=== PATIENT | male | born 1940 | race Caucasian/White ===

== ENCOUNTER 2022-12-18 06:57 | Outpatient (OUT) | payer MEDICARE, SELFPAY ==
[2022-12-18 07:55] LABS: Microalbumin Urine Random <1.3 mg/dL (<=30.0)
[2022-12-18 07:58] LABS: Alanine Aminotransferase 32 U/L (16-63); Anion Gap 12.1; BUN Creatinine Ratio 18.8; Calcium 8.9 mg/dL (8.5-10.1); Carbon Dioxide 29.6 mmol/L (21.0-32.0); Chloride 100 mmol/L (98-107); Chol HDL Ratio 3.3; Cholesterol 177 mg/dL (<=200); Estimated GFR (African America >60 (>=60); Estimated GFR (Non-African Ame >60 (>=60); Glucose 82 mg/dL (74-106); HDL Cholesterol 53 mg/dL (40-60); LDL Cholesterol Calculated 103.2 mg/dL; Potassium 4.7 mmol/L (3.5-5.1); Sodium 137 mmol/L (136-145); Triglycerides 104 mg/dL (<=150); VLDL CHOLESTEROL 20.8 mg/dL
[2022-12-18 08:00] LABS: Estimated Average Glucose 126 mg/dL
[2022-12-18 08:09] LABS: Basophils Absolute Auto 0.1 10^3/uL (0.0-0.1); Basophils Percent Auto 0.7 % (0.2-2.0); Eosinophils Absolute Auto 0.3 10^3/uL (0.0-0.7); Eosinophils Percent Auto 3.3 % (0.9-7.0); Hematocrit 41.3 % (42.0-54.0); Hemoglobin 13.8 g/dL (14.0-18.0); Immature Granulocytes Abs Auto 0.03 10^3/uL (0.00-0.03); Immature Granulocytes Pct Auto 0.4 % (0.0-0.5); Lymphocytes Absolute Auto 2.7 10^3/uL (1.2-3.8); Lymphocytes Percent Auto 35.9 % (20.5-60.0); Mean Corpuscular HGB Conc 33.4 g/dL (29.9-35.2); Mean Corpuscular Hemoglobin 31.7 pg (25.9-34.0); Mean Corpuscular Volume 94.9 fL (80.0-94.0); Monocytes Percent Auto 13.6 % (1.7-12.0); Neutrophils Absolute Auto 3.5 10^3/uL (1.4-6.5); Neutrophils Percent Auto 46.1 % (43.0-75.0); Platelet Count 241 10^3/uL (150-450); Red Blood Count 4.35 10^6/uL (4.70-6.10); Red Cell Distribution Width 11.4 % (11.0-15.0); White Blood Count 7.5 10^3/uL (4.0-11.0)
== END 2022-12-18 06:58 | disposition home or self-care (01) ==
LOC: LAB 07:05
PROVIDERS: PCP Internal Medicine; Visit Provider Internal Medicine
DX: E11.65 Type 2 diabetes mellitus with hyperglycemia (principal); E78.01 Familial hypercholesterolemia; I10 Essential (primary) hypertension; Z79.899 Other long term (current) drug therapy
CPT/HCPCS: 36415; 80048; 80061; 82043; 83036; 84460; 85025

== ENCOUNTER 2023-01-13 14:32 | Emergency (ER) | payer MEDICARE, SELFPAY ==
[2023-01-13 14:35] VITALS: BP 167/79; PULSE 70; RESP 18; TEMP 36.6; O2SAT 100; BMI 27.4
== END 2023-01-13 14:58 | disposition left against medical advice (07) ==
LOC: ER 14:47
PROVIDERS: Emergency Provider Emergency Medicine; PCP Internal Medicine
DX: Z53.21 Procedure and treatment not carried out due to patient leaving prior to being seen by health care provider (principal)

== ENCOUNTER 2023-02-23 09:58 | Outpatient (OUT) | payer MEDICARE, SELFPAY ==
--- NOTE | 2023-02-23 | US_ITS ---
[place] [id number] Patient Name: EMILY WASHINGTON MRN: [id number] date: 1940 Sex: M Assigned Patient Location: RAD Current Patient Location: RAD Accession/Order Number: [id number] Exam Date: 02/23/2023 10:35 Report Date: 02/23/2023 12:42 At the request of: LANE SAAVEDRA Procedure: US venous doppler LE RT EXAMINATION: US venous doppler LE RT HISTORY: right leg swelling COMPARISON: No relevant comparison available. TECHNIQUE: Grayscale, color and Doppler ultrasound FINDINGS: Region: Right leg Thrombus: None Flow: Normal Augmentation: Normal Compressibility: Normal Other: Moderate subcutaneous edema of the lower leg. Mildly enlarged lobular right groin lymph node measuring 3.5 x 1.5 x 1.2 cm US/US venous doppler LE RT IMPRESSION: No deep or superficial vein thrombus Subcutaneous edema *Exam performed in accordance with [facility] practice guidelines- Peripheral venous ultrasound, June 08, 2009. Electronically authenticated by: SAMY TORRES Date: 02/23/2023 12:42
== END 2023-02-23 09:59 | disposition home or self-care (01) ==
LOC: RAD 09:59
PROVIDERS: PCP Internal Medicine; Visit Provider Internal Medicine
DX: M79.89 Other specified soft tissue disorders (principal); R60.0 Localized edema
CPT/HCPCS: 93971

== ENCOUNTER 2023-02-26 08:57 | Outpatient (OUT) | payer MEDICARE, SELFPAY ==
--- NOTE | 2023-02-26 | XR_ITS ---
The [address] [address] Patient Name: EMILY WASHINGTON MRN: [id number] date: 1940 Sex: M Assigned Patient Location: Current Patient Location: [facility] Accession/Order Number: [id number] Exam Date: 02/26/2023 09:16 Report Date: 02/26/2023 12:22 At the request of: SABINE MUNSON Procedure: XR foot RT min 3V PROCEDURE: XR foot RT min 3V COMPARISON: None. HISTORY: RIGHT FOOT PAIN FINDINGS: BONES:No acute fracture or dislocation. Partial pes planus with plantar rotation of the navicular in relation to the tarsal bones. Moderate degenerative changes with joint space narrowing and marginal osteophyte formation. Enthesopathic spurring of the calcaneus. SOFT TISSUES:Negative. No visible soft tissue swelling. EFFUSION:None visible. OTHER: Scattered calcifications XR/XR foot RT min 3V IMPRESSION: Moderate degenerative changes with partial pes planus Electronically authenticated by: SAMY TORRES Date: 02/26/2023 12:22
== END 2023-02-26 08:58 | disposition home or self-care (01) ==
LOC: WC 08:57
PROVIDERS: PCP Internal Medicine; Visit Provider Podiatrist Foot & Ankle Surgery
DX: E11.621 Type 2 diabetes mellitus with foot ulcer (principal); L97.512 Non-pressure chronic ulcer of other part of right foot with fat layer exposed; L97.515 Non-pressure chronic ulcer of other part of right foot with muscle involvement without evidence of necrosis
CPT/HCPCS: 11043; 73630; G0463

== ENCOUNTER 2023-03-08 12:14 | Observation (INO) | payer MEDICARE, SELFPAY ==
[2023-03-08] VITALS (7 sets, daily range): BP systolic 157–184; BP diastolic 68–91; PULSE 63–75; RESP 16–20; TEMP 36.6–37; O2SAT 95–99; BMI 28.1; BMI 27.1
--- NOTE | 2023-03-08 12:41 | XR_ITS ---
The [address] [address] Patient Name: EMILY WASHINGTON MRN: [id number] date: 1940 Sex: M Assigned Patient Location: ER Current Patient Location: ED.[facility] Accession/Order Number: [id number] Exam Date: 03/08/2023 12:50 Report Date: 03/08/2023 15:14 At the request of: NATALIE SÁNCHEZ Procedure: XR foot RT min 3V PROCEDURE: XR foot RT min 3V, 03/08/2023 12:50 PM EST CLINICAL INDICATIONS: Diabetic foot infection, swelling and pain COMPARISON: 02/26/2023 TECHNIQUE: Right foot 3 views FINDINGS: Generalized osteopenia the bony structures is noted. Convincing sign of bone destruction or fracture is not evident. There is likely stable bone loss of the second distal phalanx tuft level. There is fusion of the fifth distal interphalangeal joint level. Hallux valgus deformity, lateral deviation of first phalanges noted. There is median eminence hypertrophic change. Osteoarthrosis throughout intertarsal tarsometatarsal, first metatarsophalangeal and interphalangeal joint levels is noted. Ankle osteoarthrosis seen. Os peroneum seen. Plantar calcaneal enthesopathy is noted. Calcific plantar fasciitis considered. No ankle effusion. Generalized soft tissue swelling is seen. Opaque foreign body or gas collection is not evident. XR/XR foot RT min 3V IMPRESSION: 1. Severe soft tissue swelling, no opaque foreign body or gas collection 2. Osteopenia, no plain film sign of osteomyelitis. Three-phase bone scan or MRI would be more accurate in further assessment. 3. Osteoarthrosis 4. Calcaneal enthesopathy with calcific plantar fasciitis Electronically authenticated by: RAN COMBS Date: 03/08/2023 15:14
--- NOTE | 2023-03-08 12:42 | ED.EXTPRO1 ---
HPI - Extremity Problem General Chief complaint: Extremity Problem, Nontraumatic Stated complaint: RIGHT FOOT PAIN Time Seen by Provider: 03/08/23 12:24 Source: patient Mode of arrival: walk-in Limitations: no limitations History of Present Illness HPI Narrative: 82-year-old male presents for redness and swelling to his right foot. 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 Since then his foot has become a bit more red and swollen and he was concerned so he came in here. He had some drainage. No fever or vomiting. Related Data Allergies Allergy/AdvReac Type Severity Reaction Status Date / Time ciprofloxacin [From Cipro] Allergy Severe Verified 01/13/23 14:41 Sulfa (Sulfonamide Allergy Severe Verified 01/13/23 14:41 Antibiotics) Review of Systems ROS Narrative A ten point review of systems is negative except as noted above. PFSH PFSH Social History Smoking status: Never smoker Exam Narrative Exam Narrative: Nurses note and vital signs reviewed and patient is not hypoxic. General: The patient appears well and in no apparent distress. Patient is resting comfortably on cart. Skin: Warm, dry, no pallor noted. There is no rash noted. Head: Normocephalic, atraumatic Eye: Normal conjunctiva, no drainage Ears, Nose, Mouth, and Throat: oral mucosa is moist. Nares patent. Cardiovascular: Regular Rate and Rhythm Respiratory: Patient is in no distress, no accessory muscle use, lungs are clear to auscultation, no wheezing, rales or rhonchi Back: non-tender GI: soft and nontender Musculoskeletal: the right foot is inspected. There is erythema on the dorsum of his foot surgically distally. There is open wound on the 5th toe and also on the 3rd toe. Neurological: A&O, normal speech Psychiatric: Cooperative Constitutional Vital Signs, click to edit/add: Last Vital Signs Temp 98.6 F 03/08/23 14:36 Pulse 63 03/08/23 14:36 Resp 16 03/08/23 12:25 BP 166/85 H 03/08/23 14:36 Pulse Ox 97 03/08/23 14:36 O2 Del Method Room Air 03/08/23 12:25 Course Vital Signs Vital signs: Vital Signs Temperature 97.9 F 03/08/23 12:25 Pulse Rate 72 03/08/23 12:25 Respiratory Rate 16 03/08/23 12:25 Blood Pressure 157/68 H 03/08/23 12:25 Pulse Oximetry 99 03/08/23 12:25 Oxygen Delivery Method Room Air 03/08/23 12:25 Temperature 98.6 F 03/08/23 14:36 Pulse Rate 63 03/08/23 14:36 Respiratory Rate 16 03/08/23 12:25 Blood Pressure 166/85 H 03/08/23 14:36 Pulse Oximetry 97 03/08/23 14:36 Oxygen Delivery Method Room Air 03/08/23 12:25 MDM - Extremity (Nontraumatic) MDM Narrative Medical decision making narrative: my clinical impression is that he is a diabetic foot infection. He is given IV Zosyn and Fortaz and is being admitted. Lungs are discussed with the patient. Differential Diagnosis Differential diagnosis: Likely other (cellulitis, osteomyelitis) Lab Data Attestation: I reviewed the patient's lab results. Labs: Lab Results 03/08/23 Range/Units 12:50 WBC 10.2 (4.0-11.0) 10^3/uL RBC 3.94 L (4.70-6.10) 10^6/uL Hgb 12.6 L (14.0-18.0) g/dL Hct 36.7 L (42.0-54.0) % MCV 93.1 (80.0-94.0) fL MCH 32.0 (25.9-34.0) pg MCHC 34.3 (29.9-35.2) g/dL RDW 11.0 (11.0-15.0) % Plt Count 249 (150-450) 10^3/uL MPV 9.2 L (9.5-13.5) fL Neut % (Auto) 67.9 (43.0-75.0) % Lymph % (Auto) 18.5 L (20.5-60.0) % Gillespie % (Auto) 11.3 (1.7-12.0) % Eos % (Auto) 1.7 (0.9-7.0) % Baso % (Auto) 0.2 (0.2-2.0) % Neut # (Auto) 7.0 H (1.4-6.5) 10^3/uL Lymph # (Auto) 1.9 (1.2-3.8) 10^3/uL Gillespie # (Auto) 1.2 H (0.3-0.8) 10^3/uL Eos # (Auto) 0.2 (0.0-0.7) 10^3/uL Baso # (Auto) 0.0 (0.0-0.1) 10^3/uL Abs Immat Gran (auto) 0.04 H (0.00-0.03) 10^3/uL Imm/Tot Granulo (auto) 0.4 (0.0-0.5) % ESR 44 H (<=20) mm/hr Sodium 130 L (136-145) mmol/L Potassium 4.2 (3.5-5.1) mmol/L Chloride 96 L (98-107) mmol/L Carbon Dioxide 25.6 (21.0-32.0) mmol/L Anion Gap 12.6 BUN 21.0 H (7.0-18.0) mg/dL Creatinine 1.18 (0.70-1.30) mg/dL Est GFR ( Amer) >60 (>=60) Est GFR (Non-Af Amer) 59 L (>=60) BUN/Creatinine Ratio 17.8 Glucose 170 H (74-106) mg/dL Calcium 8.8 (8.5-10.1) mg/dL C-Reactive Protein 2.92 H (<=0.50) mg/dL Imaging Data foot x-ray: My impression: no acute findings Discharge Plan Discharge Chief Complaint: Extremity Problem, Nontraumatic Clinical Impression: Diabetic infection of right foot Patient Disposition: Admitted As Inpatient Time of Disposition Decision: 15:06 Condition: Good Referrals: Campbell Naranjo DO [Primary Care Provider] - 1 week
[2023-03-08 13:02] LABS: Basophils Percent Auto 0.2 % (0.2-2.0); Eosinophils Absolute Auto 0.2 10^3/uL (0.0-0.7); Eosinophils Percent Auto 1.7 % (0.9-7.0); Hematocrit 36.7 % (42.0-54.0); Hemoglobin 12.6 g/dL (14.0-18.0); Immature Granulocytes Abs Auto 0.04 10^3/uL (0.00-0.03); Immature Granulocytes Pct Auto 0.4 % (0.0-0.5); Lymphocytes Absolute Auto 1.9 10^3/uL (1.2-3.8); Lymphocytes Percent Auto 18.5 % (20.5-60.0); Mean Corpuscular HGB Conc 34.3 g/dL (29.9-35.2); Mean Corpuscular Volume 93.1 fL (80.0-94.0); Mean Platelet Volume 9.2 fL (9.5-13.5); Monocytes Absolute Auto 1.2 10^3/uL (0.3-0.8); Monocytes Percent Auto 11.3 % (1.7-12.0); Neutrophils Percent Auto 67.9 % (43.0-75.0); Platelet Count 249 10^3/uL (150-450); Red Blood Count 3.94 10^6/uL (4.70-6.10); White Blood Count 10.2 10^3/uL (4.0-11.0)
[2023-03-08 13:10] LABS: Anion Gap 12.6; BUN Creatinine Ratio 17.8; Calcium 8.8 mg/dL (8.5-10.1); Carbon Dioxide 25.6 mmol/L (21.0-32.0); Chloride 96 mmol/L (98-107); Estimated GFR (African America >60 (>=60); Estimated GFR (Non-African Ame 59 (>=60); Glucose 170 mg/dL (74-106); Potassium 4.2 mmol/L (3.5-5.1); Sodium 130 mmol/L (136-145)
[2023-03-08 13:11] LABS: Erythrocyte Sedimentation Rate 44 mm/hr (<=20)
[2023-03-08 13:12] LABS: C Reactive Protein 2.92 mg/dL (<=0.50)
[2023-03-08] MEDS: CEFTAZIDIME 2,000 MG in 0.9 % SODIUM CHLORIDE 100 ML 200 MG IV (15:10)
[2023-03-08] MEDS: PIPERACILLIN SODIUM/TAZOBACTAM 3.375 GM in 0.9 % SODIUM CHLORIDE 50 ML IV ×2 (15:46→21:01)
--- NOTE | 2023-03-08 16:52 | MR_ITS ---
The [address] [address] Patient Name: EMILY WASHINGTON MRN: [id number] date: 1940 Sex: M Assigned Patient Location: MS Current Patient Location: MS Accession/Order Number: [id number] Exam Date: 03/08/2023 05:48 Report Date: 03/09/2023 07:14 At the request of: SHAIKH MICHELLE Procedure: MR foot RT wo con HISTORY: Right foot pain with a seeping wound of the right fifth toe. The patient is diabetic. MR foot RT wo con: 03/08/2023 5:48 AM EST COMPARISON: Radiographs right foot 03/08/2023. TECHNIQUE: Multiplanar, multisequence MRI images of the midfoot/forefoot were obtained without contrast. FINDINGS: Several images are degraded by motion artifact. The bone marrow signal intensity appears age appropriate. The Lisfranc ligament complex appears intact. A hallux valgus deformity is again seen and is associated with a bunion complex and osteoarthritis of the first MTP joint and first metatarsal-sesamoid joints. There is osteoarthritis again seen of the interphalangeal joint of the first toe. There appear to be at least moderate to severe degenerative changes of the posterior subtalar joint with subchondral cystic change and bone marrow edema within the adjacent body of the talus. There is a large os trigonum with degenerative change at its synchondrosis. There appears to be a small soft tissue ulcer along the lateral aspect of the fifth toe at the level of the PIP joint. However, no abnormal bone marrow signal intensity is identified within the fifth toe. No focal fluid signal intensity collection is seen. There is a large amount of diffuse subcutaneous edema along the dorsum of the foot. There are degenerative changes of the talonavicular joint. MR/MR foot RT wo con IMPRESSION: 1. There appears to be a small soft tissue ulcer along the lateral aspect of the fifth toe at the level of the PIP joint. However, no MRI evidence of osteomyelitis is seen. 2. There is osteoarthritis involving multiple joints as described above. 3. There is a large amount of diffuse soft tissue swelling along the dorsum of the foot which may be secondary to reactive edema or could be due to a cellulitis. 4. Please note that several images of this examination are degraded by motion artifact. Electronically authenticated by: IZA OATES Date: 03/09/2023 07:14
[2023-03-08] MEDS: LACTATED RINGER'S SOLUTION 1,000 ML 100 ML IV (17:31)
[2023-03-08] MEDS: VANCOMYCIN HCL 2,000 MG in 0.9 % SODIUM CHLORIDE 500 ML 250 MG IV (18:50)
[2023-03-08] MEDS: ATORVASTATIN CALCIUM 10 MG TABLET PO (22:45)
[2023-03-08] MEDS: GABAPENTIN 300 MG CAPSULE PO (22:45)
[2023-03-08] MEDS: ENOXAPARIN SODIUM 40 MG/0.4 ML SYRINGE SUBQ (22:45)
[2023-03-08] MEDS: LISINOPRIL 20 MG TABLET PO (22:45)
[2023-03-08 22:50] LABS: Glucometer 153 mg/dL (74-106)
[2023-03-09 04:08] VITALS: O2SAT 92
[2023-03-09] MEDS: PIPERACILLIN SODIUM/TAZOBACTAM 3.375 GM in 0.9 % SODIUM CHLORIDE 50 ML IV ×2 (04:40→12:12)
[2023-03-09] MEDS: LACTATED RINGER'S SOLUTION 1,000 ML 100 ML IV (04:42)
[2023-03-09 05:21] LABS: Basophils Absolute Auto 0.1 10^3/uL (0.0-0.1); Basophils Percent Auto 0.5 % (0.2-2.0); Eosinophils Absolute Auto 0.3 10^3/uL (0.0-0.7); Hematocrit 34.8 % (42.0-54.0); Hemoglobin 11.6 g/dL (14.0-18.0); Immature Granulocytes Abs Auto 0.04 10^3/uL (0.00-0.03); Immature Granulocytes Pct Auto 0.4 % (0.0-0.5); Lymphocytes Absolute Auto 2.2 10^3/uL (1.2-3.8); Lymphocytes Percent Auto 23.6 % (20.5-60.0); Mean Corpuscular HGB Conc 33.3 g/dL (29.9-35.2); Mean Corpuscular Hemoglobin 31.3 pg (25.9-34.0); Mean Corpuscular Volume 93.8 fL (80.0-94.0); Mean Platelet Volume 9.3 fL (9.5-13.5); Monocytes Absolute Auto 1.4 10^3/uL (0.3-0.8); Monocytes Percent Auto 15.1 % (1.7-12.0); Neutrophils Absolute Auto 5.2 10^3/uL (1.4-6.5); Neutrophils Percent Auto 57.4 % (43.0-75.0); Platelet Count 255 10^3/uL (150-450); Red Blood Count 3.71 10^6/uL (4.70-6.10); Red Cell Distribution Width 10.9 % (11.0-15.0); White Blood Count 9.1 10^3/uL (4.0-11.0)
[2023-03-09] MEDS: GABAPENTIN 300 MG CAPSULE PO ×2 (05:29→14:16)
[2023-03-09 05:34] VITALS: BP 136/77; PULSE 68; RESP 18; TEMP 36.4; O2SAT 95
[2023-03-09 05:34] LABS: Alanine Aminotransferase 20 U/L (16-63); Albumin Globulin Ratio 0.8; Albumin Level 2.7 g/dL (3.4-5.0); Alkaline Phosphatase 47 U/L (46-116); Anion Gap 10.2; Aspartate Amino Transferase 14 U/L (15-37); BUN Creatinine Ratio 15.4; Bilirubin Total 0.5 mg/dL (0.2-1.0); Calcium 8.5 mg/dL (8.5-10.1); Carbon Dioxide 26.9 mmol/L (21.0-32.0); Chloride 101 mmol/L (98-107); Estimated GFR (African America >60 (>=60); Estimated GFR (Non-African Ame 59 (>=60); Globulin 3.4 g/dL; Glucose 93 mg/dL (74-106); Potassium 4.1 mmol/L (3.5-5.1); Sodium 134 mmol/L (136-145); Total Protein 6.1 g/dL (6.4-8.2)
[2023-03-09] MEDS: TAMSULOSIN HCL 0.4 MG CAPSULE PO (08:55)
--- NOTE | 2023-03-09 10:08 | CM.NOTE ---
Important Message From Medicare discussed with pt, pt verbalizes understanding and signs paper. Original given to pt and copy placed on pt's chart.
--- NOTE | 2023-03-09 10:45 | CM.NOTE ---
Rounds made with Dr. Rios. Awaiting Podiatry consult's recommendations for further care. Currently, No plan for discharge today.
[2023-03-09 10:53] VITALS: O2SAT 98
[2023-03-09 11:19] LABS: Glucometer 147 mg/dL (74-106)
--- NOTE | 2023-03-09 11:32 | P.HP_ITS ---
H&P: HPI History of Present Illness Chief complaint: LOWER EXTREMITY PAIN R FOOT Narrative: 82 y o male with diabetic neuropathy, had been following Dr Tejada for non healing ulcer on dorsum of his 2nd toe and had outpatient debridement in office but developed sig erythema, pain, tenderness and swelling that was extending upwards to his knee for which he came to ED for further evaluation. He had finished an oral abx 2 weeks prior for diabetic foot infection. Patient was admitted for further w/u, IV abx and podiatry evaluation for possible surgical debridement vs toe amputation overnight. He was started on IV vancomycin and zosyn and reports erythema and swellign has gone down overnight and now involves his foot only. His pain is well controlled. MRI ordered to r/o OM was negative and indicated cellulitic changes. Awaiting Podiatry evaluation Review of Systems ROS Status of ROS 10 or more systems reviewed and unremark able except as noted in history and below [facility] Medical History (Updated 03/09/23 @ 11:38 by Shaikh Blanca MD) HLD (hyperlipidemia) ?E78.5 - Hyperlipidemia, unspecified (ICD-10) Neuropathy ?G62.9 - Polyneuropathy, unspecified (ICD-10) Fracture, ankle ?S82.899A - Other fracture of unspecified lower leg, initial encounter for closed fracture (ICD-10) Benign prostate hyperplasia ?N40.0 - Benign prostatic hyperplasia without lower urinary tract symptoms (ICD-10) Hypertension ?I10 - Essential (primary) hypertension (ICD-10) Diabetes ?E11.9 - Type 2 diabetes mellitus without complications (ICD-10) Surgical History H/O rotator cuff surgery ?Z98.890 - Other specified postprocedural states (ICD-10) History of toe surgery ?Z98.890 - Other specified postprocedural states (ICD-10) History of appendectomy ?Z90.49 - Acquired absence of other specified parts of digestive tract (ICD- 10) Hx of tonsillectomy ?Z90.89 - Acquired absence of other organs (ICD-10) Family History Mother Family history of cancer Father Family history of stroke Social History Within the past year, how often did you have a drink containing alcohol: never Score interpretation: A score less than 4 is consistent with normal alcohol consumption. 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[employer] Known occupational exposures/hazards: No Highest level of school completed/degree received: Bachelor's degree Are you now , , , , never or living with a partner: Little interest or pleasure in doing things: not at all Feeling down, depressed, or hopeless: not at all Feel stressed/tense/nervous/anxious/difficulty sleeping: not at all Do you think of yourself as: straight/heterosexual Gender Identity: male Meds Home Medications and Allergies Home Medications Medication Instructions Recorded Confirmed Type gabapentin 300 mg capsule 300 mg PO TID 03/08/23 03/08/23 History glipizide 2.5 mg tablet, extended 2.5 mg PO QAM 03/08/23 03/08/23 History release 24 hr lisinopril 20 mg tablet 20 mg PO .qhs 03/08/23 03/08/23 History lovastatin 40 mg tablet 40 mg PO .qhs 03/08/23 03/08/23 History tamsulosin 0.4 mg capsule 0.4 mg PO Q24H 03/08/23 03/08/23 History Allergies Allergy/AdvReac Type Severity Reaction Status Date / Time ciprofloxacin [From Cipro] Allergy Severe Verified 01/13/23 14:41 Sulfa (Sulfonamide Allergy Severe Verified 01/13/23 14:41 Antibiotics) Exam Constitutional Vital Signs, click to edit/add: Last Vital Signs Temp 97.6 F 03/09/23 05:34 Pulse 68 03/09/23 05:34 Resp 18 03/09/23 05:34 BP 136/77 03/09/23 05:34 Pulse Ox 98 03/09/23 10:53 O2 Del Method Room Air 03/09/23 10:53 Documenting provider has reviewed patient's vital signs: yes Common normals: no apparent distress and oriented x3 General appearance: cooperative HENMT Common normals: normocephalic and head/scalp atraumatic Head and scalp: normocephalic and atraumatic Eye Common normals: conjunctivae normal and no scleral icterus Conjunctiva: conjunctiva(e) normal Respiratory Common normals: normal respiratory effort and clear to auscultation bilaterally Effort & inspection: able to speak in complete sentences Auscultation: clear to auscultation bilaterally Cardio Common normals: regular rate, S1 normal heart sound and S2 normal heart sound Rate: regular rate Heart sounds: S1 normal and S2 normal GI Common normals: Normal to inspection, nondistended, normoactive bowel sounds present, soft to palpation, non-tender and no hepatosplenomegaly Palpation: soft and no hepatosplenomegaly Extremity General: other findings Other: Right foot -appears red/swollen 2-5th toes appears swollen. Ulcer on dorsum of second toe with purulent discharge, macerated and is soft/mushy. Neuro Common normals: oriented x3, moves all extremities and no focal motor deficits Psych Common normals: mental status grossly normal, denies hallucinations, denies homicidal ideation and denies suicidal ideation Results Labs Labs: Short CBC 03/08/23 03/09/23 Range/Units 12:50 04:21 WBC 10.2 9.1 (4.0-11.0) 10^3/uL Hgb 12.6 L 11.6 L (14.0-18.0) g/dL Hct 36.7 L 34.8 L (42.0-54.0) % Plt Count 249 255 (150-450) 10^3/uL BMP 03/08/23 03/09/23 12:50 04:21 Sodium 130 L 134 L Potassium 4.2 4.1 Chloride 96 L 101 Carbon Dioxide 25.6 26.9 BUN 21.0 H 18.0 Creatinine 1.18 1.17 Glucose 170 H 93 Calcium 8.8 8.5 Liver Function 03/09/23 Range/Units 04:21 Total Bilirubin 0.5 (0.2-1.0) mg/dL AST 14 L (15-37) U/L ALT 20 (16-63) U/L Alkaline Phosphatase 47 (46-116) U/L Albumin 2.7 L (3.4-5.0) g/dL Assessment and Plan Assessment and Plan (1) Diabetic infection of right foot: Assessment and Plan: MRI negative for OM. On Vancomycin and zosyn. Awaiting podiatry recs. F/u cultures. (2) Benign prostate hyperplasia: Assessment and Plan: C/w flomax Qualifiers: Lower urinary tract symptom detail: urinary frequency Lower urinary tract symptom presence: symptoms present Qualified Code(s): N40.1 - Benign prostatic hyperplasia with lower urinary tract symptoms; R35.0 - Frequency of micturition (3) Hypertension: Assessment and Plan: BP at goal. C/w lisinopril Qualifiers: Hypertension type: primary hypertension Qualified Code(s): I10 - Essential (primary) hypertension (4) Diabetes: Assessment and Plan: SSI while in patien. Qualifiers: Diabetes mellitus type: type 2 Diabetes mellitus skilled nursing insulin use: without oil heaterman use Diabetes mellitus complication status: with neurologic complications Diabetes mellitus complication detail: with polyneuropathy Qualified Code(s): E11.42 - Type 2 diabetes mellitus with diabetic polyneuropathy (5) Neuropathy: Assessment and Plan: c/w neurontin (6) HLD (hyperlipidemia): Assessment and Plan: c/w statin Qualifiers: Hyperlipidemia type: unspecified Qualified Code(s): E78.5 - Hy perlipidemia, unspecified
[2023-03-09 13:23] VITALS: BP 146/59; PULSE 68; RESP 18; TEMP 36.7; O2SAT 98
--- NOTE | 2023-03-09 13:44 | PM.PODCN1 ---
HPI - Podiatry Data of Consult Patient: known to practice within the last 3 years Consult date: 03/09/23 Requesting physician: Shaikh Blanca MD Primary care provider: Campbell Naranjo DO Consult Narrative Reason for consult: Right diabetic foot ulcers, infection. Narrative: Patient is a 82-year-old male with PMH of HLD, T2DM, peripheral neuropathy, BPH and hypertension admitted via ED for concern of infection to his right third and fifth digits. He was seen in our wound center approximately 2 weeks ago and wounds were noted to be stable, in office debridement was performed and was placed on Augmentin at the time by his PCP. Wound has been present since August 2022, patient states that he believes it began from rubbing in his shoe gear. Over the past few days he noticed increased redness to the right foot with some pain extending into his knee and prompted him to present to the ED for further evaluation. Upon time of my exam denied any other acute lower extremity complaints and denied any constitutional symptoms. cc:: CC: Shaikh Blanca MD Review of Systems ROS Status of ROS 10 or more systems reviewed and unremarkable except as noted in history and below [facility] Medical History (Updated 03/09/23 @ 11:38 by Shaikh Blanca MD) HLD (hyperlipidemia) ?E78.5 - Hyperlipidemia, unspecified (ICD-10) Neuropathy ?G62.9 - Polyneuropathy, unspecified (ICD-10) Fracture, ankle ?S82.899A - Other fracture of unspecified lower leg, initial encounter for closed fracture (ICD-10) Benign prostate hyperplasia ?N40.0 - Benign prostatic hyperplasia without lower urinary tract symptoms (ICD-10) Hypertension ?I10 - Essential (primary) hypertension (ICD-10) Diabetes ?E11.9 - Type 2 diabetes mellitus without complications (ICD-10) Surgical History H/O rotator cuff surgery ?Z98.890 - Other specified postprocedural states (ICD-10) History of toe surgery ?Z98.890 - Other specified postprocedural states (ICD-10) History of appendectomy ?Z90.49 - Acquired absence of other specified parts of digestive tract (ICD-10) Hx of tonsillectomy ?Z90.89 - Acquired absence of other organs (ICD-10) Family History Mother Family history of cancer Father Family history of stroke Social History Within the past year, how often did you have a drink containing alcohol: never Score interpretation: A score less than 4 is consistent with normal alcohol consumption. 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 CFT intact to digits. Skin temperature warm and symmetric with mild increase to the right third digit. Erythema localized to the right third digit distal to the PIPJ. No ascending lymphangitis. Neuro: Light touch and gross sensation diminished. Protective sensation diminished. Derm: Full-thickness ulceration left fifth digit lateral PIPJ, negative probe to bone. There is a fibrotic base with mild surrounding hyperkeratosis. No active drainage or signs of acute infection. Right third digit ulceration at the distal tuft with fibronecrotic base. No fluctuance crepitus or bogginess. Negative probe to bone. No purulence or active drainage. No other open lesions noted. MSK: Muscle strength 5/5 for 4 pedal groups. Active passive range of motion digits present. Semireducible mallet toe contracture of the right third digit. No palpatory tenderness upon exam. Compartment soft compressible, no pain with calf or thigh compression. Constitutional Vital Signs, click to edit/add: Last Vital Signs Temp 98.0 F 03/09/23 13:23 Pulse 68 03/09/23 13:23 Resp 18 03/09/23 13:23 BP 146/59 H 03/09/23 13:23 Pulse Ox 98 12/26/23 13:23 O2 Del Method Room Air 12/26/23 13:23 Assessment and Plan Assessment and Plan (1) Diabetic infection of right foot: (2) Benign prostate hyperplasia: Qualifiers: Lower urinary tract symptom presence: symptoms present Lower urinary tract symptom detail: urinary frequency Qualified Code(s): N40.1 - Benign prostatic hyperplasia with lower urinary tract symptoms; R35.0 - Frequency of micturition (3) Hypertension: Qualifiers: Hypertension type: primary hypertension Qualified Code(s): I10 - Essential (primary) hypertension (4) Diabetes: Qualifiers: Diabetes mellitus type: type 2 Diabetes mellitus penitentiary insulin use: without long term care social worker use Diabetes mellitus complication status: with neurologic complications Diabetes mellitus complication detail: with polyneuropathy Qualified Code(s): E11.42 - Type 2 diabetes mellitus with diabetic polyneuropathy (5) Neuropathy: (6) HLD (hyperlipidemia): Qualifiers: Hyperlipidemia type: unspecified Qualified Code(s): E78.5 - Hyperlipidemia, unspecified Plan Patient examined evaluated. All findings discussed with patient all questions answered to patient's satisfaction. Labs and imaging reviewed. No leukocytosis. ESR and CRP mildly elevated. X-ray does show some cortical erosive changes to the 3rd distal phalanx which were present upon x-rays previously obtained in our office. MRI did not show any overt concerns for osteomyelitis or abscess although The distal phalanges are difficult to evaluate due to motion artifact.. Ulcers to be dressed with Betadine paint and dry sterile dressing. Will provide a surgical shoe for offloading purposes, patient requires an extra-large which is not carried in the hospital, therefore I will have to bring 1 from the office later today. No acute surgical intervention planned for this stay. Stable to DC from podiatry's perspective with p.o. antibiotics and previously scheduled follow-up appointment March 16 9 AM with the wound center. Patient expressed understanding of the above plan. Rest per primary. Please call with any questions or concerns.
--- NOTE | 2023-03-09 15:41 | PC.NURSE ---
[employer] talked to Tena at wound clinic. Asked her if she knew anything about a surgical boot for patient from Dr Perez. She states he says that he has the boot on his desk and is planning to bring it for patient after he is done in [email or web address] office today
== END 2023-03-09 16:45 | disposition home or self-care (01) ==
LOC: ER 15:06 → MS 03-09 15:09
PROVIDERS: Admitting Provider Internal Medicine; Emergency Provider Emergency Medicine; PCP Internal Medicine; Visit Provider Internal Medicine
DX: E11.69 Type 2 diabetes mellitus with other specified complication (principal); L08.9 Local infection of the skin and subcutaneous tissue, unspecified; E78.5 Hyperlipidemia, unspecified; N40.1 Benign prostatic hyperplasia with lower urinary tract symptoms; E11.42 Type 2 diabetes mellitus with diabetic polyneuropathy; R35.0 Frequency of micturition; I10 Essential (primary) hypertension; E11.621 Type 2 diabetes mellitus with foot ulcer; L97.519 Non-pressure chronic ulcer of other part of right foot with unspecified severity; B96.20 Unspecified Escherichia coli [E. coli] as the cause of diseases classified elsewhere; B96.5 Pseudomonas (aeruginosa) (mallei) (pseudomallei) as the cause of diseases classified elsewhere; B95.2 Enterococcus as the cause of diseases classified elsewhere; B96.89 Other specified bacterial agents as the cause of diseases classified elsewhere; Z98.890 Other specified postprocedural states; Z90.49 Acquired absence of other specified parts of digestive tract; Z79.899 Other long term (current) drug therapy
CPT/HCPCS: 36415; 73630; 73718; 80048; 80053; 82948; 85025; 85652; 86140; 87040; 87070; 87150; 87186; 94761; 96361; 96365; 96366; 96367; 96368; 96372; 97165; 99285; G0378; J3370

== ENCOUNTER 2023-03-16 09:17 | Outpatient (OUT) | payer MEDICARE, SELFPAY ==
--- OUTSIDE RECORDS SUMMARY | 2023-03-16 09:26 | XMS_ITS | CCD ---
Author Name Unknown Address [address] [place] [address] Organization [facility] Care Team Providers Care Display Screen Fabricator Name Role Phone Ran Lees Jr. Primary Care Provider Unava ilable RAN LEES JR Primary Care Unavailable KEELY GUTIERREZ Attending Unavailable CAMPBELL NARANJO Primary Care Unavailable Campbell Naranjo DO Primary Care Provider DO Campbell Naranjo Primary Care Provider MD Davis Cervantes Emergency Provider DO Sam Simons Emergency Provider [phone] DO Sam Simons Attending Provider Campbell Naranjo Unavailable DR CAMPBELL NARANJO Primary Care Unavailable QUENTIN, DR SHERMAN Consulting Unavailable BALL, DR SHERMAN Admitting Unavailable BALL, DR SHERMAN Attending Unavailable BALL, DR SHEMRAN Primary Care Unavailable MELISSA, DR SAMY Nieves Consulting Unavailable LAKESHIA, CATRACHITA Admitting Unavailable LAKESHIA, CATRACHITA Attending Unavailable LAKESHIA, CATRACHITA Consulting Unavailable BALL, DR SHERMAN Admitting Unavailable BALL, DR SHERMAN Attending Unavailable BALL, DR SHERMAN Consulting Unavailable QUENTIN, DR SHERMAN Primary Care Unavailable QUENTIN, DR SHERMAN Admitting Unavailable BALL, DR SHERMAN Attending Unavailable BALL, DR SHERMAN Consulting Unavailable BALL, DR SHERMAN Primary Care Unavailable RANDALLLEIDY Unavailable BAPTISTE, DR ROBIN Duncan Admitting Unavailable BAPTISTE, DR ROBIN Duncan Attending Unavailable BAPTISTE, DR ROBIN Duncan Consulting Unavailable QUENTIN, DR SHERMAN Primary Care Unavailable QUENTIN, DR SHERMAN Admitting Unavailable BALL, DR SHERMAN Attending Unavailable BALL, DR SHERMAN Consulting Unavailable BALL, DR SHERMAN Primary Care Unavailable MELISSA, DR SAMY Nieves Consulting Unavailable QUENTIN, DR SHERMAN Admitting Unavailable BALL, DR SHERMAN Attending Unavailable BALL, DR SHERMAN Consulting Unavailable QUENTIN, DR SHERMAN Primary Care Unavailable QUENTIN, DR SHERMAN Admitting Unavailable BALL, DR SHERMAN Attending Unavailable BALL, DR SHERMAN Consulting Unavailable BALL, DR SHERMAN Primary Care Unavailable BaptisteJonoe Unavailable DO Campbell Naranjo Primary Care Provider DO Low Carter Emergency Provider [phone] Campbell Naranjo Primary Care Unavailable Low Carter Attending Unavailable Low Carter Admitting Unavailable Campbell Naranjo DO Primary Care Provider LETICIA MILIAN Attending Unavailable CAMPBELL NARANJO Primary Care Unavailable LETICIA MILIAN Referring Unavailable CAMPBELL NARANJO Primary Care Unavailable LETICIA MILIAN Attending Unavailable JENNIFER MILIANI Kin Referring Unavailable CAMPBELL NARANJO Primary Care Unavailable LETICIA MILIAN Referring Unavailable CAMPBELL NARANJO Primary Care Unavailable Allergies Allergy Classification Reported Allergen(s) Allergy Type Date of Onset Reaction(s) Facility (20 sources) Ciprofloxacin; Translations: [CIPROFLOXACIN] Drug Allergy 08-01-19 10 GI Upset, [facility] (20 sources) Sulfonamides (Antibiotic); Translations: [SULFA (SULFONAMIDE ANTIBIOTICS)] Propensity to adverse reactions 08-01-19 10 Rash, [facility] (1 source) Ciprofloxacin Drug Allergy [facility] (1 source) Sulfonamides (Antibiotic) Drug allergy (disorder) [facility] (1 source) Allergies Reconciled Propensity to adverse reactions Unknown [facility] Other (1 source) patient allergy list reviewed by nurse or physicia Propensity to adverse reactions 05-20-19 18 Comment:Done [facility] Other (1 source) Ciprofloxacin Drug Allergy 12-12-19 [facility] (1 source) Sulfonamides (Antibiotic) Drug allergy (disorder) 12-12-19 [facility] Medications Current Medications Medication Drug Class(es) Dates Sig (Normalized) Sig (Original) 8 hr acetaminophen 650 mg extended release oral tablet (15 sources) take 1 tablet by mouth every four hours as needed Acetaminophen ER 650 MG 1 tablet Orally every 4 hours as needed Active take 1 tablet by marisela th every four hours as needed Acetaminophen ER 650 MG 1 tablet Orally every 4 hours as needed Active amoxicillin 875 mg / clavulanate 125 mg oral tablet (4 sources) Penicillin-class Antibacterial Start: 02-19-2023 take 1 tablet by mouth every twelve hours Amoxicillin-Pot Clavulanate 875-125 MG 1 tablet Orally every 12 hrs Feb, Active betamethasone 0.5 mg/ml / clotrimazole 10 mg/ml topical cream (15 sources) Azole Antifungal, Corticosteroid Clotrimazole-Betamet hasone 1-0.05 % 1 application Externally three times a day Active cephalexin 500 mg oral capsule (16 sources) Cephalosporin Antibacterial Start: 01-23-2022 End: 01-23-2022 cephALEXin 500 mg cap(s) (KEFLEX) Start: 12-11-2021 End: 12-17-2021 take 500 mg by mouth every eight hours Cephalexin Discontinued 500 MG PO Q8H 21 7 December 11, 2021 12:00am December 17, 2021 5:10pm Start: 12-09-2021 End: 12-12-2021 take 1 capsule by mouth three times daily cephALEXin (KEFLEX) 500 mg capsule Take 1 capsule by mouth three times daily for 3 days. Start evening prior procedure 10 capsule 0 12/09/2021 12/12/2021 Active Start: 11-26-2021 End: 12-09-2021 take 1 capsule by mouth twice daily cephALEXin (KEFLEX) 500 mg capsule Take 1 capsule by mouth twice daily. 14 capsule 0 11/26/2021 12/09/2021 Discontinued Start: 11-12-2021 End: 11-12-2021 cephALEXin 500 mg cap(s) (KE FLEX) Comment on above: Take [address] [facility] twice daily. Take [address] [facility] three times daily for 3 days. Start evening prior procedure diclofenac 18 mg oral capsule (15 sources) Nonsteroidal Anti-inflammatory Drug take 1 capsule by mouth three times daily econazole nitrate 10 mg/ml topical cream (15 sources) Azole Antifungal glipiZIDE er 2.5 mg 24 hr extended release oral tablet (20 sources) Sulfonylurea Start: 12-11-2021 take 2.5 mg by mouth once daily Glipizide Active 2.5 MG PO Daily December 11, 2021 12:00am Start: 01-09-2010 take 2.5 mg by mouth once torsten y glipiZIDE 5 mg ORAL tablet Take 2.5 mg by mouth once daily. 0 01/09/2010 Active Start: 01-09-2010 take 1 tablet by marisela th once daily glipiZIDE 5 mg ORAL tablet Take one(1) tablet daily. 0 01/09/2010 Active take 1 tablet by marisela th every twenty-four hours glipiZIDE XL 5 MG 1 tablet Orally Once a day Active Comment on above: Take one(1) tablet d aily. Take 2.5 mg by mouth once daily. Glucosamine 1500 Complex - (15 sources) lidocaine hydrochloride 0.02 mg/mg topical gel (3 sources) Antiarrhythmic, Amide Local Anesthetic Start: 01-23-2022 End: 12-09-2021 lidocaine urojet 2 % 11 mL topical gel (XYLOCAINE, GLYDO) Start: 11-12-2021 End: 11-12-2021 lidocaine urojet 2 % 11 mL t opical gel (XYLOCAINE, GLYDO) lisinopril 20 mg oral tablet (20 sources) Angiotensin Converting Enzyme Inhibitor Start: 12-11-2021 take 10 mg by mouth once daily Lisinopril Active 10 MG PO Daily December 11, 2021 12:00am Start: 07-31-2009 lisinopril(ALEXANDRA NIVIL 10 MG TAB) Take one(1) tablet daily. 0 0 07/31/2009 Active Lisinopril 20 MG TAKE 1 TABLET DAILY Active Comment on above: Take one(1) tablet d aily. MSM 1500 MG (15 sources) nitrofurantoin, macrocrystals 50 mg oral capsule (1 source) Nitrofuran Antibacterial Start: 11-13-19 End: 11-23-19 take 1 capsule by mouth twice daily nitrofurantoin macrocrystal (MACRODANTIN) 50 mg capsule Indications: BPH with obstruction/lower urinary tract symptoms , Benign prostatic hyperplasia with urinary retention 1 capsule by ORAL/FEEDING TUBE route twice daily for 10 days. 20 capsule 0 11/12/2021 11/22/2021 Active Comment on above: 1 capsule by ORAL/FE EDING TUBE route twice daily for 10 days. tamsulosin hydrochloride 0.4 mg oral capsule (20 sources) alpha-Adrenergic Radha Start: 01-21-20 End: 01-28-20 24 take 1 capsule by mouth once daily, then take 1 capsule by mouth once daily tamsulosin (FLOMAX) 0.4 mg Take 1 capsule by mouth once daily. Take one cap. daily 90 capsule 3 02/02/2023 01/28/2024 Active Start: 12-17-2021 take 0.4 mg by mouth twice tej ly Tamsulosin Active 0.4 MG PO Twice daily December 17, 2021 12:00am Start: 12-16-2021 take 1 capsule by mo [facility] once daily, then take 1 capsule by mouth once daily tamsulosin (FLOMAX) 0.4 mg Take 1 capsule by mouth once daily. Take one cap. daily 30 capsule 5 12/16/2021 Active Comment on above: Take 1 capsule by mo [facility] once daily. Take one cap. daily trimethoprim 100 mg oral tablet (5 sources) Dihydrofolate Reductase Inhibitor Antibacterial Start: 2 End: 2 take 100 mg by mouth twice daily Trimethoprim Active 100 MG PO Twice daily December 17, 2021 12:00am Comment on above: Take 1 tablet by [facility] twice daily for 5 days. Completed/Discontinued Medications Medication Drug Class(es) Dates Sig (Normalized) Sig (Original) amLODIPine 2.5 mg oral tablet (14 sources) Dihydropyridine Calcium Channel Radha Start: 12-11-2021 amLODIPine (NORVASC) 2.5 mg tablet Amlodipine Active 5 MG PO Daily December 11, 2021 12:00am 0 12/11/2021 Active Start: 12-11-2021 take 5 mg by mouth once daily Amlodipine Active 5 MG PO Daily December 11, 2021 12:00am Comment on above: Amlodipine Active 5 MG PO Daily December 11, 2021 12:00am aspirin 81 mg oral tablet (20 sources) Platelet Aggregation Inhibitor, Nonsteroidal Anti-inflammatory Drug Start: 12-11-2021 aspirin 81 mg cap Aspirin Active 81 MG PO Daily December 11, 2021 12:00am 0 12/11/2021 Active take 1 tablet by mouth every twe nty-four hours Comment on above: Aspirin Active 81 MG PO Daily December 11, 2021 12:00am azithromycin 250 mg oral tablet (7 sources) Macrolide Antimicrobial Start: 09-22-2022 Azithromycin 250 MG as directed Orally daily for 5 days Sep, Not-Taking/PRN doxycycline hyclate 100 mg oral capsule (2 sources) Tetracycline-class Drug Start: 12-26-2021 doxycycline hyclate (VIBRAMYCIN) 100 mg capsule gabapentin 300 mg oral capsule (20 sources) Anti-epileptic Agent Start: 07-31-2009 gabapentin(NEURONTIN 300 MG CAP) Take one(1) tablet two(2) times daily. 0 0 07/31/2009 Active Gabapentin 300 M G 1 capsule bid and 2 q HS Orally tid Active Gabapentin 300 M G TAKE 1 CAPSULE 3 TIMES A DAY for 90 Active Comment on above: Take one(1) tablet t wo(2) times daily. glucosamine hydrochloride 1500 mg oral tablet (12 sources) Start: 05-25-2019 Glucosamine HCl 1,500 mg tab Take 1,500 mg by mouth. 0 05/25/2019 Active Comment on above: Take 1,500 mg by marisela th. ammonium lactate 120 mg/ml topical cream (11 sources) Start: 01-09-2010 Ammonium Lactate 12 % TOPICAL cream Use twice daily on feet 2 01/09/2010 Active Comment on above: Use twice daily on f eet lovastatin 40 mg oral tablet (20 sources) HMG-CoA Reductase Inhibitor Start: 05-25-2019 lovastatin 40 mg tablet Lovastatin Active 40 MG PO Daily December 11, 2021 12:00am 0 05/25/2019 Active Comment on above: Lovastatin Active 40 MG PO Daily December 11, 2021 12:00am simvastatin 40 mg oral tablet (20 sources) HMG-CoA Reductase Inhibitor Start: 07-31-2009 End: 12-16-2021 simvastatin(ZOCOR 40 MG TAB) Take one(1) tablet daily at bedtime. 0 0 07/31/2009 12/16/2021 Discontinued (Discontinued by Patient) Comment on above: Take one(1) tablet d aily at bedtime. Problems Active Problems Problem Classification Problem Date Documented Date Episodic/Chronic Acquired foot deformities (17 sources) Hammer toe; Translations: [Other hammer toe(s) (acquired), left foot] Chronic Acquired foot deformities (6 sources) Hammer toe; Translations: [Other hammer toe(s) (acquired), right foot] Chronic Acquired foot deformities (15 sources) Acquired cavovarus deformity of left foot; Translations: [Other acquired deformities of left foot] Episodic Acute bronchitis (2 sources) Acute bronchitis due to other specified organisms Episodic Cardiac dysrhythmias (2 sources) Ventricular premature complex; Translations: [Ventricular premature depolarization] Onset: 06-23-2016 Chronic Chronic kidney disease (2 sources) Chronic kidney disease stage 3; Translations: [Chronic kidney disease, stage 3 unspecified] Onset: 08-23-2014 Chronic Chronic ulcer of skin (12 sources) Ulcer of foot; Translations: [Non-pressure chronic ulcer of other part of unspecified foot with unspecified severity] Onset: 10-02-2009 10-02-2009 Chronic Complication of device; implant or graft (4 sources) Disorder of urethral catheter; Translations: [Breakdown (mechanical) of indwelling urethral catheter, initial encounter] 12-11-2021 Episodic Deficiency and other anemia (1 source) Anemia due to chronic blood loss; Translations: [Iron deficiency anemia secondary to blood loss (chronic)] Chronic Diabetes mellitus with complications (20 sources) Type 2 diabetes mellitus with other diabetic neurological complication; Translations: [Diabetes with neurological manifestations, type II or unspecified type, not stated as uncontrolled] Onset: [birth year]15-1959 Resolved: 09-25-2019 07-31-2009 Chronic Diabetes mellitus without complication (1 source) Type 2 diabetes mellitus without complication; Translations: [Diabetes mellitus without mention of complication, type II or unspecified type, not stated as uncontrolled] Chronic Disorders of lipid metabolism (20 sources) Pure hypercholesterolemia; Translations: [Familial hypercholesterolemia] Onset: 03-15-1959 Chronic Essential hypertension (20 sources) Hypertensive disorder; Translations: [Essential (primary) hypertension] Chronic Fluid and electrolyte disorders (1 source) Hypo-osmolality and hyponatremia; Translations: [Hyponatremia] Onset: 11-07-2021 Episodic Genitourinary symptoms and ill-defined conditions (20 sources) Retention of urine, unspecified; Translations: [Increased frequency of urination] Onset: 11-07-2021 Resolved: 08-28-2019 Episodic Hyperplasia of prostate (20 sources) Benign prostatic hypertrophy with outflow obstruction; Translations: [Benign prostatic hyperplasia with lower urinary tract symptoms] Onset: 03-23-2016 Chronic Immunizations and screening for infectious disease (1 source) Vaccination given; Translations: [Encounter for immunization] Episodic Inflammatory conditions of male genital organs (5 sources) Chronic epididymitis; Translations: [Epididymitis] Resolved: 08-28-2019 Episodic Occlusion or stenosis of precerebral arteries (3 sources) Left carotid artery stenosis; Translations: [Occlusion and stenosis of left carotid artery] Chronic Osteoarthritis (20 sources) Osteoarthritis of right knee joint; Translations: [Unilateral primary osteoarthritis, right knee] Chronic Other aftercare (4 sources) H/O: high risk medication; Translations: [Other oysterman (current) drug therapy] Episodic Other aftercare (1 source) Long-term current use of drug therapy; Translations: [Other intermediate (current) drug therapy] Episodic Other circulatory disease (1 source) Elevated blood-pressure reading, without diagnosis of hypertension; Translations: [Elevated blood pressure reading without diagnosis of hypertension] Onset: 11-26-2021 Episodic Other circulatory disease (14 sources) Carotid bruit; Translations: [Other specified symptoms and signs involving the circulatory and respiratory systems] Episodic Other circulatory disease (6 sources) Other specified symptoms and signs involving the circulatory and respiratory systems; Translations: [OTH SPEC SX SIGNS INVLV CIRC RS] Onset: 10-23-2021 Episodic Other circulatory disease (1 source) Cardiovascular symptoms; Translations: [Other specified symptoms and signs involving the circulatory and respiratory systems] Episodic Other connective tissue disease (4 sources) Pain in left foot; Translations: [PAIN IN LEFT FOOT] Onset: 06-02-2022 Episodic Other connective tissue disease (1 source) Pain in left foot; Translations: [Pain in left foot] Episodic Other connective tissue disease (1 source) Other specified soft tissue disorders Episodic Other diseases of bladder and urethra (1 source) Flaccid neurogenic bladder; Translations: [Flaccid neuropathic bladder, not elsewhere classified] Chronic Other diseases of veins and lymphatics (6 sources) Peripheral venous insufficiency; Translations: [Venous insufficiency (chronic) (peripheral)] Onset: 09-21-2016 Episodic Other injuries and conditions due to external causes (2 sources) History of fall; Translations: [Personal history of fall] Onset: 06-23-2016 Episodic Other male genital disorders (1 source) Personal history of other diseases of male genital organs; Translations: [History of BPH] Onset: 11-07-2021 Episodic Other male genital disorders (1 source) Disorder of reproductive system; Translations: [Hydrocele, unspecified] Episodic Other male genital disorders (1 source) Pain of left testicle; Translations: [Left testicular pain] Episodic Other non-traumatic joint disorders (1 source) Lower limb joint arthritis; Translations: [Osteoarthrosis, unspecified whether generalized or localized, lower leg] Onset: 10-03-2014 Chronic Other non-traumatic joint disorders (1 source) Pain in left knee Episodic Other non-traumatic joint disorders (1 source) Pain in left ankle and joints of left foot; Translations: [PAIN IN LEFT ANKLE] Onset: 06-06-2022 Episodic Other non-traumatic joint disorders (1 source) Shoulder joint pain; Translations: [Pain in right shoulder] Episodic Other nutritional; endocrine; and metabolic disorders (1 source) Obesity; Translations: [Obesity, unspecified] Chronic Other nutritional; endocrine; and metabolic disorders (1 source) Overweight Episodic Other skin disorders (5 sources) Actinic keratosis; Translations: [Actinic keratosis] Episodic Other skin disorders (1 source) Callosity; Translations: [Corns and callosities] Episodic Other skin disorders (2 sources) Corns and callosities Episodic Retinal detachments; defects; vascular occlusion; and retinopathy (1 source) Serous retinal detachment; Translations: [Serous retinal detachment, unspecified eye] Episodic Skin and subcutaneous tissue infections (3 sources) Cellulitis of toe of left foot; Translations: [Cellulitis of left toe] Resolved: 08-28-2019 Episodic Spondylosis; intervertebral disc disorders; other back problems (6 sources) Lumbosacral spondylosis without myelopathy; Translations: [Spondylosis without myelopathy or radiculopathy, lumbar region] Chronic Sprains and strains (2 sources) Low back strain; Translations: [Strain of muscle, fascia and tendon of lower back, initial encounter] Resolved: 07-15-2021 Episodic Unclassified (3 sources) CONTACT W/AND (SUSP) EXPOS COVID-19; Translations: [CONTACT W/AND (SUSP) EXPOS COVID-19] Onset: 11-23-2021 Unclassified (1 source) Long-term current use of drug therapy; Translations: [Long-term (current) use of other medications] Onset: 03-23-2016 Urinary tract infections (3 sources) Acute cystitis with hematuria; Translations: [Urinary tract infectious disease] Onset: 11-26-2021 Episodic Past or Other Problems Problem Classification Problem Date Documented Date Episodic/Chronic Acute posthemorrhagic anemia (1 source) Acute posthemorrhagic anemia; Translations: [Acute posthemorrhagic anemia] Resolved: 01-09-2020 Episodic Bacterial infection; unspecified site (1 source) Bacterial infectious disease; Translations: [Bacterial infection, unspecified, in conditions classified elsewhere and of unspecified site] Onset: 10-29-2017 Episodic Cardiac dysrhythmias (1 source) Palpitations; Translations: [Palpitations] Onset: 06-23-2016 Episodic Chronic obstructive pulmonary disease and bronchiectasis (1 source) Bronchitis; Translations: [Bronchitis, not specified as acute or chronic] Onset: 03-03-2013 Episodic Deficiency and other anemia (1 source) Anemia; Translations: [Anemia, unspecified] Resolved: 01-06-2021 Episodic Malaise and fatigue (1 source) Malaise and fatigue; Translations: [Other malaise and fatigue] Onset: 03-23-2016 Episodic Nonspecific chest pain (1 source) Chest pain; Translations: [Chest pain, unspecified] Resolved: 08-28-2019 Episodic Other aftercare (1 source) Other oysterman (current) drug therapy; Translations: [OTH PENITENTIARY CURRENT DRUG THERAPY] Onset: 10-22-2021 Episodic Other connective tissue disease (1 source) Disorder of soft tissue; Translations: [Other specified soft tissue disorders] Resolved: 08-28-2019 Episodic Other lower respiratory disease (1 source) Dyspnea; Translations: [Dyspnea, unspecified] Onset: 10-03-2014 Episodic Other male genital disorders (4 sources) Left testicular pain; Translations: [LEFT TESTICULAR PAIN] Onset: 12-25-2021 Episodic Other nutritional; endocrine; and metabolic disorders (1 source) Overweight; Translations: [Overweight] Onset: 10-20-2021 Episodic Other nutritional; endocrine; and metabolic disorders (2 sources) Body mass index 25-29 - overweight; Translations: [Body mass index (BMI) 28.0-28.9, adult] Onset: 05-01-2015 Episodic Other skin disorders (1 source) Other seborrheic keratosis; Translations: [Seborrheic keratosis] Onset: 07-27-2013 Episodic Other skin disorders (1 source) Atrophoderma; Translations: [Unspecified hypertrophic and atrophic condition of skin] Onset: 01-16-2014 Episodic Other upper respiratory infections (1 source) Acute pharyngitis; Translations: [Acute pharyngitis due to other specified organisms] Onset: 10-29-2017 Episodic Residual codes; unclassified (12 sources) Postoperative state; Translations: [Other specified postprocedural states] Onset: 12-12-2009 12-12-2009 Episodic Residual codes; unclassified (1 source) Requires influenza virus vaccination; Translations: [Need for prophylactic vaccination and inoculation, Influenza] Onset: 01-14-2018 Episodic Residual codes; unclassified (1 source) Edema; Translations: [Edema] Onset: 05-25-2014 Episodic Screening and history of mental health and substance abuse codes (1 source) History of tobacco use; Translations: [Personal history of tobacco use, presenting hazards to health] Onset: 06-23-2016 Episodic Superficial injury; contusion (1 source) Blister of foot with infection; Translations: [Foot and toe(s), blister, infected] Onset: 07-11-2014 Episodic Unclassified (1 source) CONTACT W/AND (SUSP) EXPOS COVID-19; Translations: [CONTACT W/AND (SUSP) EXPOS COVID-19] Onset: 11-19-2021 Results Test Name Value Interpretation Reference Range Facility OV 02-02-2023 CNOV Office Visit (UROLLN ) NORBERTO WASHINGTON ([id number]) 1940 M Date Time Provider Department 02/02/23 1:30 PM LETICIA MILIAN UROLLJatinder During your visit today, we recorded the following information about you: Pulse Blood pressure Weight 65/minute 146/70 102.1 kg Leticia Milian, [employer]ST[employer]ER.GENERAL OFFICE ASSOCIATE 02/02/2023 2:13 PM Signed Norberto Washington [address] [facility] [id number] HISTORY OF PRESENT ILLNESS: Seen 07/28/22 for BPH w obs/luts, UTI Denies gross hematutia Denies burning with urination C/O some urinary leakage during something staining during the day were padding and change once, pt stated that wear pads at night. Pt stated that is doing well with urination on flomax Enlarged L testicle. ROSAMARIA 11/10/21 - 10 gm, rubbery, no nodules AUA=13 QOL 2 PVR=52 ML cysto 11-12-21 = 2.5 cm NON OBSTRUCTIVE well resected prostate, Multiple small diverticulae UROFLOWMETRY November 12, 2021 Voided vol: 149.5 ml. Q max: 14.2 ml/sec. Q av.1 ml/sec. PVR: 346 - 200 = 146 ml. UDS 12-09-21 UROFLOWMETRY= Voided vol: 270.3 ml. Q max: 42.6 ml/sec. Q av.1 ml/sec. PVR: 15.0 ml. PRESSURE-FLOW VOIDING STUDY Voided: 306.0 ml voluntary P det Q max (Max Flow): 31.6 cm H2O Maximum Flow Rate: 16.5 ml/sec Average Flow Rate: 4.3 ml/sec PVR: 50 cc US Scrotum 01/01/22 - Bilateral epididymitis, small L hydrocele, chronic R epidymidis -Took Vibramycin for bladder infection Coming for BPH w obs/luts, UTI (new finding today 02/02/23) Denies gross hematuria Denies any wt lost or pelvic pain Pt stated that notice occassionally sensation daily Pt wear a padding underwear and change daily rto Drink about 3 glasses of water PVR=83 ML Culture 01/19/23=neg Location: BPH w obs/luts, UTI Pain Character: none Severity Scale: see AUA score, see lab Duration: BPH w obs/luts, UTI [employer] SYMPTOMS SCORE. 1. INCOMPLETE EMPTYING 0 2. FREQUENCY 1 3. INTERMITTENCY 2 4. URGENCY 2 5. WEAK STREAM 3 6. STRAINING 2 7. NOCTURIA 2 TOTAL SCORE 12 QOL 2 No past medical history on file. No past surgical history on file. No family history on file. Social History Tobacco Use Smoking status: Former Packs/day: 1.50 Years: 14.00 Additional pack years: 0.00 Total pack years: 21.00 Types: Cigarettes Quit date: 03/15/1971 Years since quittin.9 Smokeless tobacco: Never Substance Use Topics Alcohol use: Yes Comment: social MEDICATIONS: Current Outpatient Medications Medication Sig tamsulosin (FLOMAX) 0.4 mg Take 1 capsule by mouth once daily. Take one cap. daily aspirin 81 mg cap Aspirin Active 81 MG PO Daily December 11, 2021 12:00am lovastatin 40 mg tablet Lovastatin Active 40 MG PO Daily December 11, 2021 12:00am Glucosamine HCl 1,500 mg tab Take 1,500 mg by mouth. glipiZIDE 5 mg ORAL tablet Take 2.5 mg by mouth once daily. gabapentin(NEURONTIN 300 MG CAP) Take one(1) tablet two(2) times daily. lisinopril(PRINIVIL 10 MG TAB) Take one(1) tablet daily. doxycycline hyclate (VIBRAMYCIN) 100 mg capsule (Patient not taking: Reported on 01/20/2022) amLODIPine (NORVASC) 2.5 mg tablet Amlodipine Active 5 MG PO Daily December 11, 2021 12:00am (Patient not taking: Reported on 02/02/2023) TRUE METRIX GLUCOSE TEST STRIP test strip TEST HOME BLOOD SUGAR ONCE A DAY TRUEPLUS LANCETS 33 gauge USE TO TEST HOME BLOOD SUGAR ONCE A DAY No current facility-administered medications for this visit. ALLERGY: ALLERGIES Allergen Reactions Cipro [Ciprofloxaci* GI Upset Sulfa (Sulfonamide * Rash REVIEW OF SYSTEMS GENERAL: No fever, no fatigue and no weight loss. HEAD AND NECK: No headache, no blurred vision and no hearing loss. CARDIOVASCULAR: No chest pain, no palpitations and no leg edema. RESPIRATORY: No cough, wheezing and no shortness of breath. : As indicated in HPI. GI: No epigastric discomfort, no blood in stool and no changes in bowel habits. MUSCLOSKELETAL: No neck pain, no back anin and no joint pain. SKIN: No varicose veins, no rash and no abnormal itching. NEUROLOGICAL: No numbness, no seizures and no tremor. BLOOD: No ekimosis, no hematomas or no bleeding from the gums. PHYSICAL EXAM: VITALS: BP 146/70 Pulse 65 Wt 102.1 kg (225 lb) BMI 28.12 kg/m? GENERAL: Alert, oriented and in no distress. HEAD: Conjuctiva: no palor Sclera: no jaundice NECK: No enlarged thyroid, no palpable lymph nodes, and no engorged neck veins. CHEST: Bilateral symetrical, resp easy non labored ABDOMEN: Soft, non tender with no masses or organomegaly. No CVA tenderness. EXTREMITIES: No leg edema, No joint swelling GENITALIA: Deferred IMPRESSION: (Diagnostic Possibilities): -L epididymitis (resolved) -Weak Urinary Stream (imp (more content not included)... Normal [facility] Bacteria Ur Culton 3 Bacteria identified Cx Nom (U) CULTURE, URINE: No growth (<1,000 CFU/ml) Normal [facility] Comment on above: Performed By: #### 6 30-4 #### [facility] CLIA [id number] [address] [place] [address] OF [facility] CNOVon 07-28-2022 CNOV Office Visit (UROLLN ) NORBERTO WASHINGTON ([id number]) 1940 M Date Time Provider Department 07/28/22 1:30 PM LETICIA MILIAN During your visit today, we recorded the following information about you: Pulse Blood pressure Weight 68/minute 142/55 100.7 kg Leticia Milian APRN.GENERAL OFFICE ASSOCIATE 07/30/2022 4:34 PM Addendum Norberto Washington [address] [facility] [address] HISTORY OF PRESENT ILLNESS: Seen 01/20/22 for BPH w obs/luts Denies gross hematutia Denies burning with urination Epidymidis resolve B/L pt is doing well will cont with present regiment PVR=52 ML Enlarged L testicle. ROSAMARIA 11/10/21 - 10 gm, rubbery, no nodules May need UDS based on cysto PVR 01/08/22 - 82 cc AUA= 13 QOL 5 cysto 11-12-21 = 2.5 cm NON OBSTRUCTIVE well resected prostate, Multiple small diverticulae UROFLOWMETRY November 12, 2021 Voided vol: 149.5 ml. Q max: 14.2 ml/sec. Q av.1 ml/sec. PVR: 346 - 200 = 146 ml. UDS 12-09-21 UROFLOWMETRY= Voided vol: 270.3 ml. Q max: 42.6 ml/sec. Q av.1 ml/sec. PVR: 15.0 ml. PRESSURE-FLOW VOIDING STUDY Voided: 306.0 ml voluntary P det Q max (Max Flow): 31.6 cm H2O Maximum Flow Rate: 16.5 ml/sec Average Flow Rate: 4.3 ml/sec PVR: 50 cc US Scrotum 01/01/22 - Bilateral epididymitis, small L hydrocele, chronic R epidymidis -Took Vibramycin for bladder infection Coming for BPH w obs/luts, UTI (new finding today 07/28/22) Denies gross hematutia Denies burning with urination C/O some urinary leakage during something staining during the day were padding and change once, pt stated that wear pads at night. Pt stated that is doing well with urination on flomax Culture 07/20/22=neg UA 07/20/22=leuk esterase 250, wbc 11-25 [facility] SYMPTOMS SCORE. 1. INCOMPLETE EMPTYING 1 2. FREQUENCY 1 3. INTERMITTENCY 4 4. URGENCY 1 5. WEAK STREAM 2 6. STRAINING 2 7. NOCTURIA 2 TOTAL SCORE 13 QOL 2 Location: BPH w obs/luts, UTI Pain Character: none Severity Scale: see AUA score, see lab Duration: BPH w obs/luts, UTI No past medical history on file. No past surgical history on file. No family history on file. Social History Tobacco Use Smoking status: Former Packs/day: 1.50 Years: 14.00 Pack years: 21.00 Types: Cigarettes Quit date: 03/15/1971 Years since quittin.4 Smokeless tobacco: Never Substance Use Topics Alcohol use: Yes Comment: social MEDICATIONS: Current Outpatient Medications Medication Sig tamsulosin (FLOMAX) 0.4 mg Take 1 capsule by mouth once daily. Take one cap. daily amLODIPine (NORVASC) 2.5 mg tablet Amlodipine Active 5 MG PO Daily December 11, 2021 12:00am aspirin 81 mg cap Aspirin Active 81 MG PO Daily December 11, 2021 12:00am lovastatin 40 mg tablet Lovastatin Active 40 MG PO Daily December 11, 2021 12:00am Glucosamine HCl 1,500 mg tab Take 1,500 mg by mouth. glipiZIDE 5 mg ORAL tablet Take 2.5 mg by mouth once daily. gabapentin(NEURONTIN 300 MG CAP) Take one(1) tablet two(2) times daily. lisinopril(PRINIVIL 10 MG TAB) Take one(1) tablet daily. doxycycline hyclate (VIBRAMYCIN) 100 mg capsule (Patient not taking: Reported on 01/20/2022) TRUE METRIX GLUCOSE TEST STRIP test strip TEST HOME BLOOD SUGAR ONCE A DAY TRUEPLUS LANCETS 33 gauge USE TO TEST HOME BLOOD SUGAR ONCE A DAY No current facility-administered medications for this visit. ALLERGY: ALLERGIES Allergen Reactions Cipro [Ciprofloxaci* GI Upset Sulfa (Sulfonamide * Rash REVIEW OF SYSTEMS GENERAL: No fever, no fatigue and no weight loss. HEAD AND NECK: No headache, no blurred vision and no hearing loss. CARDIOVASCULAR: No chest pain, no palpitations and no leg edema. RESPIRATORY: No cough, wheezing and no shortness of breath. : As indicated in HPI. GI: No epigastric discomfort, no blood in stool and no changes in bowel habits. MUSCLOSKELETAL: No neck pain, no back anin and no joint pain. SKIN: No varicose veins, no rash and no abnormal itching. NEUROLOGICAL: No numbness, no seizures and no tremor. BLOOD: No ekimosis, no hematomas or no bleeding from the gums. PHYSICAL EXAM: VITALS: BP 142/55 Pulse 68 Wt 100.7 kg (222 lb) BMI 27.75 kg/m? GENERAL: Alert, oriented and in no distress. HEAD: Conjuctiva: no palor Sclera: no jaundice NECK: No enlarged thyroid, no palpable lymph nodes, and no engorged neck veins. CHEST: Bilateral symetrical, resp easy non labored ABDOMEN: Soft, non tender with no masses or organomegaly. No CVA tenderness. EXTREMITIES: No leg edema, No joint swelling GENITALIA: Deferred IMPRESSION: (Diagnostic Possibilities): -L epididymitis (resolved) -Weak Urinary Stream (improved with flomax) -BPH without obstruction on flomax -LIOR -DM UTI (more content not included)... Normal [facility] Bacteria Ur Culton 3 Bacteria identified Cx Nom (U) CULTURE, URINE: No growth (<1,000 CFU/ml) Normal [facility] Comment on above: Performed By: #### 6 30-4 #### [facility] CLIA [id number] [address] [place] [address] [place] Urinalysis complete panel (U )on 07-20-2022 Bilirubin Ql (U) Negative Normal Negative [facility] Comment on above: Order Comment: Speci men Type: URINE SPECIMEN Ordering Facility: [facility] Address: [address] [place] [address] Performed By: #### 2 4356-8 #### [facility] CLIA [id number] [address] [place] Clarity (Unsp spec) Clear Normal Clear [facility] Comment on above: Order Comment: Speci men Type: URINE SPECIMEN Ordering Facility: [facility] Address: [address] [place] [address] Performed By: #### 2 4356-8 #### [facility] CLIA [id number] [address] [place] [id number] [place] Color (U) Yellow Normal Yellow [facility] Comment on above: Order Comment: Speci men Type: URINE SPECIMEN Ordering Facility: [facility] Address: [address] Performed By: #### 2 4356-8 #### [facility] CLIA [id number] [address] [place] [address] [place] Epithelial cells LM.HPF (Urine sed) [#/Area] Few Normal [facility] Comment on above: Order Comment: Speci men Type: URINE SPECIMEN Ordering Facility: [facility] Address: [address] Performed By: #### 2 4356-8 #### [facility] CLIA [id number] [address] [place] [address] [place] Glucose Test strip (U) [Mass/Vol] Negative Normal Trace, Negative [facility] Comment on above: Order Comment: Speci men Type: URINE SPECIMEN Ordering Facility: [facility] Address: [address] Performed By: #### 2 4356-8 #### [facility] CLIA [id number] [address] [place] [address] [place] Hemoglobin Ql (U) Negative Normal Negative, Trace [facility] Comment on above: Order Comment: Speci men Type: URINE SPECIMEN Ordering Facility: [facility] Address: [address] Performed By: #### 2 4356-8 #### [facility] CLIA [id number] [address] [place] [address] [place] Ketones Ql (U) Negative Normal Trace, Negative [facility] Comment on above: Order Comment: Speci men Type: URINE SPECIMEN Ordering Facility: [facility] Address: [address] Performed By: #### 2 4356-8 #### [facility] CLIA [id number] [address] [place] [address] [place] Leukocyte esterase Test strip Ql (U) 250 Ayaz/uL Abnormal Negative, 25 Ayaz/uL [facility] Comment on above: Order Comment: Speci men Type: URINE SPECIMEN Ordering Facility: [facility] Address: [address] [place] [address] Performed By: #### 2 4356-8 #### [facility] CLIA [id number] [address] [place] [address] [place] Nitrite Ql (U) Negative Normal Negative [facility] Comment on above: Order Comment: Speci men Type: URINE SPECIMEN Ordering Facility: [facility] Address: [address] [place] [address] Performed By: #### 2 4356-8 #### [facility] CLIA [id number] [address] [place] [address] [place] pH (U) 5.5 [pH] Normal 5.0-8.0 [facility] Comment on above: Order Comment: Speci men Type: URINE SPECIMEN Ordering Facility: [facility] Address: [address] [place] [address] Performed By: #### 2 4356-8 #### [facility] CLIA [id number] [address] [place] [address] [place] Protein (U) [Mass/Vol] Negative Normal Trace , Negative [facility] Comment on above: Order Comment: Speci men Type: URINE SPECIMEN Ordering Facility: [facility] Address: [address] [place] [address] Performed By: #### 2 4356-8 #### [facility] CLIA [id number] [address] [place] [address] [place] RBC LM.HPF (Urine sed) [#/Area] 0-3 /HPF Normal 0-3 /HPF [facility] Comment on above: Order Comment: Speci men Type: URINE SPECIMEN Ordering Facility: [facility] Address: [address] [address] Performed By: #### 2 4356-8 #### [facility] CLIA [id number] [address] [place] [address] [place] Specific gravity (U) [Rel density] 1.016 Normal 1.005-1.030 [facility] Comment on above: Order Comment: Speci men Type: URINE SPECIMEN Ordering Facility: [facility] Address: [address] [address] Performed By: #### 2 4356-8 #### [facility] CLIA [id number] [address] [place] [address] [place] Urobilinogen Ql (U) Negative Normal Negative [facility] Comment on above: Order Comment: Speci men Type: URINE SPECIMEN Ordering Facility: [facility] Address: [address] [address] Performed By: #### 2 4356-8 #### [facility] CLIA [id number] [address] [place] [address] [place] WBC LM.HPF (Urine sed) [#/Area] 11-25 /HPF Abnormal 0-5 /HPF [facility] Comment on above: Order Comment: Speci men Type: URINE SPECIMEN Ordering Facility: [facility] Address: [address] [place] [address] Performed By: #### 2 4356-8 #### [facility] CLIA [id number] [address] [place] [address] [place] GLYCOHEMOGLOBIN A1Con 2022 ADA RECOMMENDATION SEE BELOW Normal [facility] Comment on above: Result Comment: ADA RECOMMENDED LIMIT 4.0 - 6.0 ADA THERAPEUTIC TARGET < 7.0 ACTION SUGGESTED > 7.0 Performed By: #### A 1C #### [facility] [address] [place] [address] Dr. Juan Pablo Kaminski Glucose [Mass/Vol] 128 mg/dL Normal [facility] Comment on above: Performed By: #### A 1C #### [facility] [address] [place] [address] Dr. Juan Pablo Kaminski HbA1c (Bld) [Mass fraction] 6.1 % Normal 4.5-6.2 [facility] Comment on above: Performed By: #### A 1C #### [facility] [address] [place] [address] Dr. Juan Pablo Kaminski A1C with Estimated Average G luon 03-20-2022 A1C with Estimated Average Glu 128 [facility] [employer] Other A1C with Estimated Average Glu [facility] [employer] Other HbA1c (Bld) [Mass fraction] 6.1 % Normal 4.5-6.2 [facility] [employer] Other Comment on above: Performed By: #### A 1C #### [facility] [address] [place] [address] Dr. Juan Pablo Kaminski GLYCOHEMOGLOBIN A1Con 2022 ADA RECOMMENDATION SEE BELOW Normal [facility] Comment on above: Result Comment: ADA RECOMMENDED LIMIT 4.0 - 6.0 ADA THERAPEUTIC TARGET < 7.0 ACTION SUGGESTED > 7.0 Performed By: #### A 1C #### [facility] [address] [place] [address] Dr. Juan Pablo Kaminski Glucose [Mass/Vol] 128 mg/dL Normal [facility] Comment on above: Performed By: #### A 1C #### [facility] [address] [place] [address] Dr. Juan Pablo Kaminski US SCROTUM W VASCULAR ORGANo n 12-25-2021 US SCROTUM W VASCULAR ORGAN INDICATION: Pain in testicle EXAMINATION: Ultrasound US SCROTUM W VASCULAR ORGAN TECHNIQUE: Realtime ultrasound of the testicles was performed with grayscale, Color Doppler and spectral Doppler analysis. COMPARISON: A CT scan of the abdomen and pelvis dated 05/20/2019 __ FINDINGS: RIGHT: The right testicle measures approximately 2.6 x 1.8 x 1.4 cm. It is normal in size and echotexture, without focal lesion. DOPPLER: Normal arterial flow is present in the testicle with monophasic waveforms. EPIDIDYMIS: The right epididymis is moderately thickened. HYDROCELE: A moderate sized simple appearing hydrocele is observed. VARICOCELE: None. LEFT: The left testicle measures approximately 2.8 x 2.0 x 2.0 cm. It is normal in size and echotexture, without focal lesion. DOPPLER: Normal arterial flow is present in the testicle with monophasic waveforms. There is increased flow within the left epididymis on color Doppler imaging. EPIDIDYMIS: There is marked thickening of the left epididymis. HYDROCELE: A small simple appearing hydrocele is observed. VARICOCELE: None. IMPRESSION: 1. Moderate thickening of the right epididymis, raising the question of chronic epididymitis. This is associated with a moderate size simple appearing right scrotal hydrocele. 2. Marked thickening of the left epididymis, associated with hyperemia. This pattern is frequently the consequence of epididymitis. Consider urology consultation. 3. Small simple appearing left scrotal hydrocele. 4. Normal arterial flow to both testicles, arguing against testicular torsion. Electronically authenticated by: LEIDY PEREIRA Date: 2021-12-25 18:32 Normal [facility] Urine culture routineOrdered By: Sam Simons on 12-19-2021 Bacteria identified Cx Nom (U) Pseudomonas aeruginosa [facility] Automated erythrocytes count in urine sediment (number/area)Ordered By: Sam Simons on 12-17-2021 RBC Auto (Urine sed) [#/Area] 1-2 [HPF] 0-4 [facility] Automated leukocytes count i n urine sediment (number/area)Ordered By: Sam Simons on 12-17-2021 WBC Auto (Urine sed) [#/Area] 20-49 [HPF] 0-4 [facility] Bilirubin Test strip Ql (U)O rdered By: Sam Simons on 12-17-2021 Bilirubin Ql (U) Negative Negative [facility] Color Auto (U)Ordered By: Micheal Simons on 10-05-2022 Color (U) Yellow Yellow [facility] Ketones Auto test strip (U) [Mass/Vol]Ordered By: Sam Simons on 12-17-2021 Ketones (U) [Mass/Vol] Negative Negative [facility] - UrinalysisOrder ed By: Sam Simons on 12-17-2021 Hyaline casts LM Ql (Urine sed) 0-8 [LPF] 0-8 [facility] Nitrite Test strip Ql (U)Ord ered By: Sam Simons on 12-17-2021 Nitrite Ql (U) Negative Negative [facility] Protein Auto test strip (U) [Mass/Vol]Ordered By: Sam Simons on 12-17-2021 Protein (U) [Mass/Vol] Negative Negative [facility] Specific gravity Auto test s trip (U) [Rel density]Ordered By: Sam Simons on 12-17-2021 Specific gravity (U) [Rel density] 1.016 1.001-1.030 [facility] Squamous epithelial cells de tection in urine sediment by light microscopyOrdered By: Sam Simons on 12-17-2021 Epithelial cells.squamous LM Ql (Urine sed) 0-1 [HPF] 0-2 [facility] Urine bacteria detection by automated methodOrdered By: Sam Simons on 12-17-2021 Bacteria Auto Ql (U) None seen None Seen [facility] Urine clarity by refractomet ry automatedOrdered By: Sam Simons on 12-17-2021 Clarity Refractometry automated (U) Clear Clear [facility] Urine glucose measurement by automated test strip (mass/volume)Ordered By: Sam Simons on 12-17-2021 Glucose Auto test strip (U) [Mass/Vol] Normal mg/dL Normal [facility] Urine hemoglobin detection b y automated test stripOrdered By: Sam Simons on 12-17-2021 Hemoglobin Auto test strip Ql (U) Negative Negative [facility] Urine leukocyte esterase det ection by automated test stripOrdered By: Sam Simons on 12-17-2021 Leukocyte esterase Auto test strip Ql (U) 4+ Negative [facility] Urobilinogen Auto test strip (U) [Mass/Vol]Ordered By: Sam Simons on 12-17-2021 Urobilinogen (U) [Mass/Vol] Normal mg/dL Normal [facility] pH Auto test strip (U)Ordere d By: Sam Simons on 12-17-2021 pH (U) 6.0 [pH] 5.0-9.0 [facility] Urine culture routineOrdered By: Davis Cervantes on 12-13-2021 Bacteria identified Cx Nom (U) No Growth 2 Days [facility] Automated erythrocytes count in urine sediment (number/area)Ordered By: Davis Cervantes on 12-11-2021 RBC Auto (Urine sed) [#/Area] 20-49 [HPF] 0-4 [facility] Automated leukocytes count i n urine sediment (number/area)Ordered By: Davis Cervantes on 12-11-2021 WBC Auto (Urine sed) [#/Area] 10-19 [HPF] 0-4 [facility] Basophils Auto (Bld) [#/Vol] Ordered By: Davis Cervantes on 12-11-2021 Basophils (Bld) [#/Vol] 0.1 10*3/uL 0.0-0.2 [facility] Basophils/100 WBC Auto (Bld) Ordered By: Davis Cervantes on 12-11-2021 Basophils/100 WBC (Bld) 1.2 % . [facility] Bilirubin Test strip Ql (U)O rdered By: Davis Cervantes on 12-11-2021 Bilirubin Ql (U) Negative Negative [facility] Blood hemoglobin measurement (mass/volume)Ordered By: Davis Cervantes on 12-11-2021 Hemoglobin (Bld) [Mass/Vol] 13.3 g/dL 13.0-17.0 [facility] Blood leukocytes automated c ount (number/volume)Ordered By: Davis Cervantes on 12-11-2021 WBC (Bld) [#/Vol] 8.2 10*3/uL 4.5-11.0 [facility] Color Auto (U)Ordered By: Mary Cervantse on 12-11-2021 Color (U) Yellow Yellow [facility] Creatinine and Glomerular fi ltration rate.predicted panel (S/P/Bld)Ordered By: Davis Cervantes on 12-11-2021 Creatinine [Mass/Vol] 1.16 mg/dL 0.64-1.27 [facility] Eosinophils Auto (Bld) [#/Vo l]Ordered By: Davis Cervantes on 12-11-2021 Eosinophils (Bld) [#/Vol] 0.2 10*3/uL 0.0-0.45 [facility] Eosinophils/100 WBC Auto (Bl d)Ordered By: Davis Cervantes on 12-11-2021 Eosinophils/100 WBC (Bld) 2.9 % . [facility] Erythrocyte distribution wid th Auto (RBC) [Ratio]Ordered By: Davis Cervantes on 12-11-2021 Erythrocyte distribution width (RBC) [Ratio] 11.8 % 12.0-14.8 [facility] Estimated glomerular filtrat ion rate (GFR) non- AmericanOrdered By: Davis Cervantes on 12-11-2021 GFR/1.73 sq M.predicted among non-blacks MDRD (S/P/Bld) [Vol rate/Area] 60 mL/Min [facility] Hematocrit Auto (Bld) [Volum e fraction]Ordered By: Davis Cervantes on 12-11-2021 Hematocrit (Bld) [Volume fraction] 39.6 % 38.8-50.0 [facility] Ketones Auto test strip (U) [Mass/Vol]Ordered By: Davis Cervantes on 12-11-2021 Ketones (U) [Mass/Vol] Negative Negative [facility] - Hematology and Cell countsOrdered By: Davis Cervantes on 12-11-2021 Nucleated RBC/100 WBC (Bld) [Ratio] 0.0 % 0-0.5 [facility] - UrinalysisOrder ed By: Davis Cervantes on 12-11-2021 Hyaline casts LM Ql (Urine sed) 0-8 [LPF] 0-8 [facility] Lymphocytes Auto (Bld) [#/Vo l]Ordered By: Davis Cervantes on 12-11-2021 Lymphocytes (Bld) [#/Vol] 1.9 10*3/uL 1.00-4.8 [facility] Lymphocytes/100 WBC Auto (Bl d)Ordered By: Davis Cervantes on 12-11-2021 Lymphocytes/100 WBC (Bld) 23.3 % . [facility] MCH Auto (RBC) [Entitic mass ]Ordered By: Davis Cervantes on 12-11-2021 MCH (RBC) [Entitic mass] 32.0 pg 27.5-35.2 [facility] MCHC Auto (RBC) [Mass/Vol]Or dered By: Davis Cervantes on 12-11-2021 MCHC (RBC) [Mass/Vol] 33.6 g/dL 32.5-35.6 [facility] MCV Auto (RBC) [Entitic vol] Ordered By: Davis Cervantes on 12-11-2021 MCV (RBC) [Entitic vol] 95.1 fL 83.5-101 [facility] Monocytes Auto (Bld) [#/Vol] Ordered By: Davis Cervantes on 12-11-2021 Monocytes (Bld) [#/Vol] 1.1 10*3/uL 0.0-0.8 [facility] Monocytes/100 WBC Auto (Bld) Ordered By: Davis Cervantes on 12-11-2021 Monocytes/100 WBC (Bld) 13.6 % . [facility] Neutrophils Auto (Bld) [#/Vo l]Ordered By: Davis Cervantes on 12-11-2021 Neutrophils (Bld) [#/Vol] 4.8 10*3/uL 1.8-7.7 [facility] Neutrophils/100 WBC Auto (Bl d)Ordered By: Davis Cervantes on 12-11-2021 Neutrophils/100 WBC (Bld) 59.0 % . [facility] Nitrite Test strip Ql (U)Ord ered By: Davis Cervantes on 12-11-2021 Nitrite Ql (U) Negative Negative [facility] No Panel InformationOrdered By: Davis Cervantes on 12-11-2021 Estimated GFR () > 60 mL/Min [facility] Comment on above: GFR estimated refere nce range: According to KDOQI guidelines, <60 ml/min/1.73m2 is sufficient to diagnose a patient with chronic kidney disease. Pharmacy Creatinine Clearance (Chem 57.67 [facility] Platelet mean volume Auto (B ld) [Entitic vol]Ordered By: Davis Cervantes on 12-11-2021 Platelet mean volume (Bld) [Entitic vol] 7.0 fL 6.6-10.1 [facility] Platelets Auto (Bld) [#/Vol] Ordered By: Davis Cervantes on 12-11-2021 Platelets (Bld) [#/Vol] 266 10*3/uL 150-450 [facility] Protein Auto test strip (U) [Mass/Vol]Ordered By: Davis Cervantes on 12-11-2021 Protein (U) [Mass/Vol] Negative Negative [facility] RBC Auto (Bld) [#/Vol]Ordere d By: Davis Cervantes on 12-11-2021 RBC (Bld) [#/Vol] 4.17 10*6/uL 3.90-5.60 [facility] Serum or plasma anion gap de terminationOrdered By: Davis Cervantes on 12-11-2021 Anion gap [Moles/Vol] 12.2 mmol/L 6.0-15.0 [facility] Serum or plasma calcium maggy urement (mass/volume)Ordered By: Davis Cervantes on 12-11-2021 Calcium [Mass/Vol] 9.0 mg/dL 8.2-10.2 [facility] Serum or plasma chloride udran surement (moles/volume)Ordered By: Davis Cervantes on 12-11-2021 Chloride [Moles/Vol] 96 mmol/L 95-114 [facility] Serum or plasma glucose maggy urement (mass/volume)Ordered By: Davis Cervantes on 12-11-2021 Glucose [Mass/Vol] 131 mg/dL 70-100 [facility] Comment on above: ADA recommended refe rence rangeRandom Glucose Reference Range is dependent on time and content of last meal. Glucose of more than 200 mg/dL in a nonstressed, ambulatory subject supports the diagnosis of Diabetes Mellitus. Serum or plasma potassium me asurement (moles/volume)Ordered By: Davis Cervantes on 12-11-2021 Potassium [Moles/Vol] 4.5 mmol/L 3.5-5.1 [facility] Serum or plasma sodium measu rement (moles/volume)Ordered By: Davis Cervantes on 12-11-2021 Sodium [Moles/Vol] 131 mmol/L 136-146 [facility] Serum or plasma total carbon dioxide measurement (moles/volume)Ordered By: Davis Cervantes on 12-11-2021 CO2 [Moles/Vol] 27.3 mmol/L 22.0-30.0 [facility] Serum or plasma urea nitroge n measurement (mass/volume)Ordered By: Davis Cervantes on 12-11-2021 Urea nitrogen [Mass/Vol] 20 mg/dL 12-05 [facility] Specific gravity Auto test s trip (U) [Rel density]Ordered By: Davis Cervantes on 12-11-2021 Specific gravity (U) [Rel density] 1.014 1.001-1.030 [facility] Squamous epithelial cells de tection in urine sediment by light microscopyOrdered By: Davis Cervantes on 12-11-2021 Epithelial cells.squamous LM Ql (Urine sed) 0-1 [HPF] 0-2 [facility] Urine bacteria detection by automated methodOrdered By: Davis Cervantes on 12-11-2021 Bacteria Auto Ql (U) None seen None Seen [facility] Urine clarity by refractomet ry automatedOrdered By: Davis Cervantes on 12-11-2021 Clarity Refractometry automated (U) Clear Clear [facility] Urine glucose measurement by automated test strip (mass/volume)Ordered By: Davis Cervantes on 12-11-2021 Glucose Auto test strip (U) [Mass/Vol] Normal mg/dL Normal [facility] Urine hemoglobin detection b y automated test stripOrdered By: Davis Cervantes on 12-11-2021 Hemoglobin Auto test strip Ql (U) 2+ Negative [facility] Urine leukocyte esterase det ection by automated test stripOrdered By: Davis Cervantes on 12-11-2021 Leukocyte esterase Auto test strip Ql (U) 2+ Negative [facility] Urobilinogen Auto test strip (U) [Mass/Vol]Ordered By: Davis Cervantes on 12-11-2021 Urobilinogen (U) [Mass/Vol] Normal mg/dL Normal [facility] pH Auto test strip (U)Ordere d By: Davis Cervantes on 12-11-2021 pH (U) 5.5 [pH] 5.0-9.0 [facility] ED NOTEon 11-27-2021 ED NOTE HNO ID: [id number] Author: Alyx Vergara RN Service: Nursing Author Type: Registered Nurse Type: ED Notes Filed: 11/26/2021 10:21 PM Note Text: Discharge instructions and follow up appointments reviewed. Pt verbalized understanding and states no concerns or questions at this time. VSS. Spoke with Asha about elevated BP. Stated that it's okay for pt to go and have him f/u with his PCP. Normal [facility] ED NOTE HNO ID: [id number] Author: Alyx Vergara RN Service: Nursing Author Type: Registered Nurse Type: ED Notes Filed: 11/26/2021 10:10 PM Note Text: Replaced hamilton bag with leg bag. Normal [facility] Bacteria Ur Culton 2 Bacteria identified Cx Nom (U) [id number] Abnormal [facility] Comment on above: Order Comment: Speci men Type: URINE SPECIMEN Ordering Facility: [facility] Address: [address] [place] [address] Result Comment: >=10 0,000 CFU/ml Klebsiella oxytoca Performed By: #### 6 30-4, 13418-4 #### [facility] CLIA [id number] [address] [place] [address] [place] Bacterial susceptibility maldonado el (Isol)on 11-26-2021 Ampicillin [Susc] Resistant [facility] Comment on above: Order Comment: Order ing Facility: [facility] Address: [address] [place] [address] Performed By: #### 6 30-4, 32508-8 #### [facility] CLIA [id number] [address] [place] [address] [place] Ampicillin+Sulbactam [Susc] 4 Susceptible Susceptible <=8 , Intermediate >8 , Resistant >16 [facility] Comment on above: Order Comment: Order ing Facility: [facility] Address: [address] [place] [address] Performed By: #### 6 30-4, 37010-8 #### [facility] CLIA [id number] [address] [place] [address] [place] ceFAZolin [Susc] <=4 Susceptible Susceptible 0-16 , Intermediate <0 or >16 , Resistant >16 [facility] Comment on above: Order Comment: Order ing Facility: [facility] Address: [address] [place], [place] [address] Performed By: #### 6 30-4, 14698-3 #### [facility] CLIA [id number] [address] [place] [address] [place] Cefepime [Susc] <=1 Susceptible Susceptible <=2 , Intermediate >2 , Resistant >=16 [facility] Comment on above: Order Comment: Order ing Facility: [facility] Address: [address] [place] [address] Performed By: #### 6 30-4, 24569-1 #### [facility] CLIA [id number] [address] [place] [address] [place] cefTRIAXone [Susc] <=1 Susceptible Susceptib le <=1 , Intermediate >1 , Resistant >=4 [facility] Comment on above: Order Comment: Order ing Facility: [facility] Address: [address] [place] [address] Performed By: #### 6 30-4, 32590-9 #### [facility] CLIA [id number] [address] [place] [address] [place] Ciprofloxacin [Susc] <=0.25 Susceptible Suscept ible <0.5 , Intermediate >=.5 , Resistant >=1 [facility] Comment on above: Order Comment: Order ing Facility: [facility] Address: [address] [place], [place] [address] Performed By: #### 6 30-4, 26079-0 #### [facility] CLIA [id number] [address] [place] [address] [place] Ertapenem ROCIO [Susc] <=0.5 Susceptible Suscept ible <=0.5 , Intermediate >.5 , Resistant >1 [facility] Comment on above: Order Comment: Order ing Facility: [facility] Address: [address] Performed By: #### 6 30-4, 17274-0 #### [facility] CLIA [id number] [address] [place] [address] [place] Gentamicin [Susc] <=1 Susceptible Susceptibl e <=4 , Intermediate >4 , Resistant >8 [facility] Comment on above: Order Comment: Order ing Facility: [facility] Address: [address] [place] [address] Performed By: #### 6 30-4, 37820-9 #### [facility] CLIA [id number] [address] [place] [address] [place] Meropenem [Susc] <=0.25 Susceptible Susceptible <=1 , Intermediate >1 , Resistant >2 [facility] Comment on above: Order Comment: Order ing Facility: [facility] Address: [address] [place] [address] Performed By: #### 6 30-4, 37464-6 #### [facility] CLIA [id number] [address] [place] [address] [place] Nitrofurantoin [Susc] 32 Susceptible Suscep tible <=32 , Intermediate >32 , Resistant >64 [facility] Comment on above: Order Comment: Order ing Facility: [facility] Address: [address] [place], [place] [address] Performed By: #### 6 30-4, 06555-9 #### [facility] CLIA [id number] [address] [place] [address] [place] Piperacillin+Sulbactam ROCIO [Susc] <=4 Susceptible Susceptible <=16 , Intermediate >16 , Resistant >64 [facility] Comment on above: Order Comment: Order ing Facility: [facility] Address: [address] [place] [address] Performed By: #### 6 30-4, 45889-3 #### [facility] CLIA [id number] [address] [place] [address] Tobramycin [Susc] <=1 Susceptible Susceptibl e <=4 , Intermediate >4 , Resistant >8 [facility] Comment on above: Order Comment: Order ing Facility: [facility] Address: [address] [place] [address] Performed By: #### 6 30-4, 36627-1 #### [facility] CLIA [id number] [address] [place] [address] Trimethoprim+Sulfameth oxazole [Susc] <=20 Susceptible Susceptible <=40 , Resistant >40 [facility] Comment on above: Order Comment: Order ing Facility: [facility] Address: [address] [place] [address] Performed By: #### 6 30-4, 10592-0 #### [facility] IA [id number] [address] [place] [address] ED NOTEon 11-26-2021 ED NOTE HNO ID: [id number] Author: Alyx Vergara RN Service: Nursing Author Type: Registered Nurse Type: ED Notes Filed: 11/26/2021 9:20 PM Note Text: Replaced hamilton per Asha BARR. [facility] ED NOTE HNO ID: [id number] Author: Alyx Vergara RN Service: Nursing Author Type: Registered Nurse Type: ED Notes Filed: 11/26/2021 9:01 PM Note Text: Was instructed to bladder scan pt due to pt having no urine in replaced bag. Bladder scanned 261 mL's the first time. Then 214 mL's the second time. Made Asha ESQUIVEL) aware. [facility] ED NOTE HNO ID: [id number] Author: Alyx Vergara RN Service: Nursing Author Type: Registered Nurse Type: ED Notes Filed: 11/26/2021 9:49 PM Note Text: Flushed 20 mL Hamilton. No leaking noted around tube. [facility] ED PROV NOTEon 11-26-2021 ED PROV NOTE HNO ID: [id number] Author: Asha Clinton PA-C Service: ? Author Type: Physician Community Outreach Manager Type: ED Provider Notes Filed: 11/26/2021 10:26 PM Note Text: ED Provider Note Patient Name: Norberto Washington : 1940 SERVICE DATE: 11/26/21 History Patient presents with: Hamiltno Cath Problem: Pt had hamilton placed 11/12, tonight having urine coming out around tube Patient is a an 81-year-old male history of diabetes, BPH presenting to the emergency department with indwelling Hamilton catheter complaining of leakage around Hamilton catheter states. Also has been describing some discomfort around the urethral meatus, applying Neosporin to the area. Catheter was placed 11/12. Being followed by Dr. Dugan. No current antibiotics. Denies any hematuria, fevers, chills, abdominal pain, back pain, chest pain, shortness of breath, any other complaints or concerns. 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 No family history on file. Social History Tobacco Use Smoking status: Former Packs/day: 1.50 Years: 14.00 Pack years: 21.00 Types: Cigarettes Quit date: 03/15/1971 Years since quittin.7 Smokeless tobacco: Not on file Substance and Sexual Activity Alcohol use: Yes Comment: social Drug use: Not on file Sexual activity: Not on file ALLERGIES Allergen Reactions Cipro [Ciprofloxaci* GI Upset Sulfa (Sulfonamide * Rash Review of Systems Constitutional: Negative. HENT: Negative. Respiratory: Negative. Cardiovascular: Negative. Gastrointestinal: Negative. Genitourinary: Positive for decreased urine volume and dysuria. Musculoskeletal: Negative. Skin: Negative. Neurological: Negative. Psychiatric/Behaviora l: Negative. All other systems reviewed and are negative. Physical Exam Vitals [11/26/211921] BP Pulse Temp Temp src Resp SpO2 Weight Height 182/68 74 36.7 ?C (98.1 ?F) Oral 16 97 % 95.3 kg (210 lb) 1.905 m (6' 3 ) Physical Exam Vitals reviewed. Constitutional: General: He is not in acute distress. HENT: Head: Normocephalic and atraumatic. Nose: Nose normal. Mouth/Throat: Mouth: Mucous membranes are moist. Eyes: General: No scleral icterus. Conjunctiva/sclera: Conjunctivae normal. Cardiovascular: Rate and Rhythm: Normal rate and regular rhythm. Pulmonary: Effort: Pulmonary effort is normal. Breath sounds: Normal breath sounds. Abdominal: General: There is no distension. Palpations: Abdomen is soft. Tenderness: There is no abdominal tenderness. There is no right CVA tenderness, left CVA tenderness or guarding. Genitourinary: Comments: Hamilton catheter in place, leg bag has very little urine appreciated. Musculoskeletal: Cervical back: Normal range of motion and neck supple. Skin: General: Skin is warm. Capillary Refill: Capillary refill takes less than 2 seconds. Neurological: General: No focal deficit present. Mental Status: He is alert and oriented to person, place, and time. Psychiatric: Mood and Affect: Mood normal. Diagnostic Testing ED Labs Ordered and Reviewed URINALYSIS, WITH MICROSCOPIC - Abnormal; Notable for the following components: Result Value Ref Range Clarity Cloudy (*) Clear Hemoglobin/Blood,Ur 2+ (*) Negative Nitrites Positive (*) Negative Leuk Esterase 3+ (*) Negative WBC, Urine 11-25 /HPF (*) 0-5 /HPF RBC, Urine 6-10 /HPF (*) 0-3 /HPF Bacteria Many (*) None Seen /HPF All other components within normal limits URINE CULTURE Procedures ED Course / Clinical Impression Clinical Impressions as of 11/26/215 Acute cystitis with hematuria Urinary retention Elevated blood pressure reading without diagnosis of hypertension MDM / Disposition / Plan Patient is an 81-year-old male with history of BPH, indwelling Hamilton catheter placed 11/12 presenting with decreased flow from Hamilton catheter this evening and leakage around the urethral meatus. Patient states he has had some burning along this area as well. No fevers, chills. Afebrile, nontoxic-appearing. Benign abdominal exam. Irrigated Hamilton catheter without difficulty. Little to no urine was draining from leg bag in place. Bladder scan performed which was 261. Hamilton catheter changed. Urine draining appropriately. Patient feels much improved. Urinalysis shows 11-25 white blood cells and 6-10 red blood cells, 3+ leukoesterase with positive nitrites. Urine sent for culture. Previous and only urine culture in [facility] on 11/07 had no growth. Given dose of Keflex. Prescription for this E scripted to pharmacy. Patient discharged with Hamilton in place, leg bag instructions. Elevated blood pressure noted and improved during stay. No CP, sob, dizziness or any other complaints. Recommend f/u with pcp for recheck. All questions and concerns addre (more content not included)... Normal [facility] Urinalysis complete panel (U )on 11-26-2021 Bacteria LM.HPF (Urine sed) [#/Area] Many Abnormal None Seen [facility] Comment on above: Order Comment: Speci men Type: URINE SPECIMEN Ordering Facility: [facility] Address: [address] [place] [address] Performed By: #### 6 30-4, 18243-1 #### [facility] CLIA [id number] [address] [place] [address] [place] Bilirubin Ql (U) Negative Normal Negative [facility] Comment on above: Order Comment: Speci men Type: URINE SPECIMEN Ordering Facility: [facility] Address: [address] [place] [address] Performed By: #### 6 30-4, 39142-6 #### [facility] CLIA [id number] [address] [place] [address] [place] Clarity (Unsp spec) Cloudy Abnormal Clear [facility] Comment on above: Order Comment: Speci men Type: URINE SPECIMEN Ordering Facility: [facility] Address: [address] [place] [address] Performed By: #### 6 30-4, 62307-5 #### [facility] CLIA [id number] [address] [place] [address] [place] Color (U) Yellow Normal Yellow [facility] Comment on above: Order Comment: Speci men Type: URINE SPECIMEN Ordering Facility: [facility] Address: [address] [place] [address] Performed By: #### 6 30-4, 74584-1 #### [facility] CLIA [id number] [address] [place] [address] [place] Epithelial cells LM.HPF (Urine sed) [#/Area] Few Normal [facility] Comment on above: Order Comment: Speci men Type: URINE SPECIMEN Ordering Facility: [facility] Address: [address] [place] [address] Performed By: #### 6 30-4, 49879-9 #### [facility] CLIA [id number] [address] [place] [address] [place] Glucose Test strip (U) [Mass/Vol] Negative Normal Negative [facility] Comment on above: Order Comment: Speci men Type: URINE SPECIMEN Ordering Facility: [facility] Address: [address] [place] [address] Performed By: #### 6 30-4, 29899-7 #### [facility] CLIA [id number] [address] [place] [address] [place] Hemoglobin Ql (U) 2+ Abnormal [facility] Comment on above: Order Comment: Speci men Type: URINE SPECIMEN Ordering Facility: [facility] Address: [address] [place] [address] Performed By: #### 6 30-4, 72697-4 #### [facility] CLIA [id number] [address] [place] [address] [place] Ketones Ql (U) Negative Normal [facility] Comment on above: Order Comment: Speci men Type: URINE SPECIMEN Ordering Facility: [facility] Address: [address] [place], [place] [address] Performed By: #### 6 30-4, 26463-0 #### [facility] CLIA [id number] [address] [place] [address] [place] Leukocyte esterase Test strip Ql (U) 3+ Abnormal Negative [facility] Comment on above: Order Comment: Speci men Type: URINE SPECIMEN Ordering Facility: [facility] Address: [address] [place] [address] Performed By: #### 6 30-4, 24661-5 #### [facility] CLIA [id number] [address] [place] [address] [place] Nitrite Ql (U) Positive Abnormal Negative [facility] Comment on above: Order Comment: Speci men Type: URINE SPECIMEN Ordering Facility: [facility] Address: [address] [place] [address] Performed By: #### 6 30-4, 49917-1 #### [facility] CLIA [id number] [address] [place] [address] [place] pH (U) 5.5 [pH] Normal 5.0-8.0 [facility] Comment on above: Order Comment: Speci men Type: URINE SPECIMEN Ordering Facility: [facility] Address: [address] [place] [address] Performed By: #### 6 30-4, 77417-6 #### [facility] CLIA [id number] [address] [place] [address] [place] [facility] Protein (U) [Mass/Vol] Normal [facility] Comment on above: Order Comment: Speci men Type: URINE SPECIMEN Ordering Facility: [facility] Address: [address] [place] [address] Result Comment: Visi ble blood causes falsely elevated results for analyte Protein. Due to this limitation, Protein will not be reported for patients whose urine contains visible blood. Performed By: #### 6 30-4, 71927-7 #### [facility] CLIA [id number] [address] [place] [address] [place] RBC LM.HPF (Urine sed) [#/Area] 6-10 /HPF Abnormal 0-3 /HPF [facility] Comment on above: Order Comment: Speci men Type: URINE SPECIMEN Ordering Facility: [facility] Address: [address] [place] [address] Performed By: #### 6 30-4, 70186-1 #### [facility] CLIA [id number] [address] [place] [address] [place] Specific gravity (U) [Rel density] 1.009 Normal 1.005-1.030 [facility] Comment on above: Order Comment: Speci men Type: URINE SPECIMEN Ordering Facility: [facility] Address: [address] [place] [address] Performed By: #### 6 30-4, 60304-1 #### [facility] CLIA [id number] [address] [place] [address] [place] Urobilinogen Ql (U) 0.2 EU/dL Normal 0.2-1.0 EU/dL [facility] Comment on above: Order Comment: Speci men Type: URINE SPECIMEN Ordering Facility: [facility] Address: [address] [place] [address] Performed By: #### 6 30-4, 72379-0 #### [facility] CLIA [id number] [address] [place] [address] [place] WBC LM.HPF (Urine sed) [#/Area] 11-25 /HPF Abnormal 0-5 /HPF [facility] Comment on above: Order Comment: Speci men Type: URINE SPECIMEN Ordering Facility: [facility] Address: [address] [place] [address] Performed By: #### 6 30-4, 90115-6 #### [facility] CLIA [id number] [address] [place] [address] [place] Covid-19 PCR ([facility])on SARS-CoV-2 (COVID-19) RNA LUANNE+probe Ql (Unsp spec) Not detected Normal NOT DETECTED [facility] Comment on above: Result Comment: This test is not yet approved or cleared by the [place] FDA. When there are no FDA-approved or cleared tests available, and other criteria are met, FDA can make tests available under an emergency access mechanism called an Emergency Use Authorization (EUA). The EUA for this test is supported by the [place] of Health and Human Service's (HHS's) declaration that circumstances exist to justify the emergency use of in vitro diagnostics for the detection and/or diagnosis of the virus that causes COVID-19. This EUA will remain in effect (meaning this test can be used) for the duration of the COVID-19 declaration justifying emergency of IVDs, unless it is terminated or revoked by FDA (after which the test may no longer be used). When diagnostic testing is negative, the possibility of a false negative should be considered in the context of a patient's recent exposures and the presence of clinical signs and symptoms consistent with SARS-CoV-2. Performed By: #### C VDTB #### [facility] [address] [place] [address] Dr. Juan Pablo Kaminski Bacteria Ur Culton 2 Bacteria identified Cx Nom (U) No growth (<1,000 CFU/ml) Normal [facility] Comment on above: Order Comment: Speci men Type: URINE SPECIMEN Ordering Facility[facility] Address: [address] [place] [address] Performed By: #### 6 30-4 #### [facility] CLIA [id number] [address] [place] [address] [place] Basic metabolic 2000 panelon 11-07-2021 Anion gap [Moles/Vol] 10 mmol/L Normal 9-18 [facility] Comment on above: Order Comment: Speci men Type: URINE SPECIMEN Ordering Facility: [facility] Address: [address] [place] [address] Performed By: #### 6 30-4, 47045-3 #### [facility] CLIA [id number] [address] [place] [address] [place] Calcium [Mass/Vol] 9.1 mg/dL Normal 8.5-10.2 [facility] Comment on above: Order Comment: Speci men Type: URINE SPECIMEN Ordering Facility: [facility] Address: [address] [place], [place] [address] Performed By: #### 6 30-4, 06652-4 #### [facility] CLIA [id number] [address] [place] [address] [place] Chloride [Moles/Vol] 95 mmol/L Low 97-105 [facility] Comment on above: Order Comment: Speci men Type: URINE SPECIMEN Ordering Facility: [facility] Address: [address] [place], [place] [address] Performed By: #### 6 30-4, 29191-3 #### [facility] CLIA [id number] [address] [place] [address] [place] CO2 [Moles/Vol] 25 mmol/L Normal 22-30 [facility] Comment on above: Order Comment: Speci men Type: URINE SPECIMEN Ordering Facility: [facility] Address: [address] [place], [place] [address] Performed By: #### 6 30-4, 12581-0 #### [facility] CLIA [id number] [address] [place] [address] [place] Creatinine [Mass/Vol] 1.25 mg/dL High 0.73-1.22 [facility] Comment on above: Order Comment: Speci men Type: URINE SPECIMEN Ordering Facility: [facility] Address: [address] [place], [place] [address] Performed By: #### 6 30-4, 82467-8 #### [facility] CLIA [id number] [address] [place] [address] [place] [place] ESTIMATED GLOMERULAR FILTRATION RATE 57 mL/min/1.73m??? Low >=60 [facility] Comment on above: Order Comment: Speci men Type: URINE SPECIMEN Ordering Facility: [facility] Address: [address] [place], [place] [address] Result Comment: Annalise mated Glomerular Filtration Rate (eGFR) is calculated using the 2020 CKD-EPI creatinine equation. This equation utilizes serum creatinine, sex, and age as parameters. The creatinine assay has traceable calibration to isotope dilution-mass spectrometry. Refer to KDIGO guidelines for clinical interpretation. In patients with unstable renal function, e.g. those with acute kidney injury, the eGFR may not accurately reflect actual GFR. Performed By: #### 6 30-4, 98885-8 #### [facility] CLIA [id number] [address] [place] [address] [place] Glucose [Mass/Vol] 129 mg/dL High 74-99 [facility] Comment on above: Order Comment: Speci men Type: URINE SPECIMEN Ordering Facility: [facility] Address: [address] [place] [address] Result Comment: The [place] Diabetes Association (ADA) provides guidance for cutoff values for fasting glucose and random glucose. The ADA defines fasting as no caloric intake for at least 8 hours. Fasting plasma glucose results between 100 to 125 mg/dL indicate increased risk for diabetes (prediabetes). Fasting plasma glucose results greater than or equal to 126 mg/dL meet the criteria for diagnosis of diabetes. In the absence of unequivocal hyperglycemia, results should be confirmed by repeat testing. In a patient with classic symptoms of hyperglycemia or hyperglycemic crisis, random plasma glucose results greater than or equal to 200 mg/dL meet the criteria for diagnosis of diabetes. Reference: Standards of Medical Care in Diabetes 2016, [place] Diabetes Association. Diabetes Care. 2016.39(Suppl 1). Performed By: #### 6 30-4, 10817-9 #### [facility] CLIA [id number] [address] [place] [address] [place] Potassium [Moles/Vol] 4.6 mmol/L Normal 3.7-5.1 [facility] Comment on above: Order Comment: Speci men Type: URINE SPECIMEN Ordering Facility: [facility] Address: [address] [place] [id number] Performed By: #### 6 30-4, 10348-3 #### [facility] CLIA [id number] [address] [place] [address] [place] Sodium [Moles/Vol] 130 mmol/L Low 136-144 [facility] Comment on above: Order Comment: Speci men Type: URINE SPECIMEN Ordering Facility: [facility] Address: [address] [place], [place] [address] Performed By: #### 6 30-4, 57686-6 #### [facility] CLIA [id number] [address] [place] [address] [place] Urea nitrogen [Mass/Vol] 23 mg/dL Normal 9-24 [facility] Comment on above: Order Comment: Speci men Type: URINE SPECIMEN Ordering Facility: [facility] Address: [address] [place], [place] [address] Performed By: #### 6 30-4, 16246-8 #### [facility] CLIA [id number] [address] [place] [address] [place] CBC W Auto Differential pane l (Bld)on 11-07-2021 Basophils/100 WBC (Bld) 0.0 % Normal [facility] Comment on above: Order Comment: Speci men Type: URINE SPECIMEN Ordering Facility: [facility] Address: [address] [place], [place] [address] Performed By: #### 6 30-4, 86189-2 #### [facility] CLIA [id number] [address] [place] [address] [place] Differential cell count method Nom (Bld) Manual Normal [facility] Comment on above: Order Comment: Speci men Type: URINE SPECIMEN Ordering Facility: [facility] Address: [address] [place], [place] [address] Performed By: #### 6 30-4, 16249-8 #### [facility] CLIA [id number] [address] [place] [address] [place] Eosinophils (Bld) [#/Vol] 0.10 10*3/uL Normal <0.46 [facility] Comment on above: Order Comment: Speci men Type: URINE SPECIMEN Ordering Facility: [facility] Address: [address] [place], [place] [address] Performed By: #### 6 30-4, 42306-0 #### [facility] CLIA [id number] [address] [place] [address] [place] Eosinophils/100 WBC (Bld) 1.0 % Normal [facility] Comment on above: Order Comment: Speci men Type: URINE SPECIMEN Ordering Facility: [facility] Address: [address] [place] [address] Performed By: #### 6 30-4, 74780-1 #### [facility] CLIA [id number] [address] [place] [address] [place] Erythrocyte distribution width (RBC) [Ratio] 11.5 % Normal 11.5-15.0 [facility] Comment on above: Order Comment: Speci men Type: URINE SPECIMEN Ordering Facility: [facility] Address: [address] [place] [address] Performed By: #### 6 30-4, 04404-7 #### [facility] CLIA [id number] [address] [place] [address] [place] Hematocrit (Bld) [Volume fraction] 39.8 % Normal 39.0-51.0 [facility] Comment on above: Order Comment: Speci men Type: URINE SPECIMEN Ordering Facility: [facility] Address: [address] [place], [place] [address] Performed By: #### 6 30-4, 18298-5 #### [facility] CLIA [id number] [address] [place] [address] [place] Hemoglobin (Bld) [Mass/Vol] 13.4 g/dL Normal 13.0-17.0 [facility] Comment on above: Order Comment: Speci men Type: URINE SPECIMEN Ordering Facility: [facility] Address: [address] [place], [place] [address] Performed By: #### 6 30-4, 96034-9 #### [facility] CLIA [id number] [address] [place] [address] [place] Lymphocytes (Bld) [#/Vol] 1.67 10*3/uL Normal 1.00-4.00 [facility] Comment on above: Order Comment: Speci men Type: URINE SPECIMEN Ordering Facility: [facility] Address: [address] [place] [address] Performed By: #### 6 30-, 32735-1 #### [facility] CLIA [id number] [address] [place] [address] [place] Lymphocytes/100 WBC (Bld) 17.0 % Normal [facility] Comment on above: Order Comment: Speci men Type: URINE SPECIMEN Ordering Facility: [facility] Address: [address] [place] [address] Performed By: #### 6 30, 53117-1 #### [facility] CLIA [id number] [address] [place] [address] [place] MCH (RBC) [Entitic mass] 31.5 pg Normal 26.0-34.0 [facility] Comment on above: Order Comment: Speci men Type: URINE SPECIMEN Ordering Facility: [facility] Address: [address] [place] [address] Performed By: #### 6 30-, 33081-8 #### [facility] CLIA [id number] [address] [place] [address] [place] MCHC (RBC) [Mass/Vol] 33.7 g/dL Normal 30.5-36.0 [facility] Comment on above: Order Comment: Speci men Type: URINE SPECIMEN Ordering Facility: [facility] Address: [address] [place] [address] Performed By: #### 6 304, 15697-7 #### [facility] CLIA [id number] [address] [place] [address] [place] MCV (RBC) [Entitic vol] 93.4 fL Normal 80.0-100.0 [facility] Comment on above: Order Comment: Speci men Type: URINE SPECIMEN Ordering Facility: [facility] Address: [address] [place] [address] Performed By: #### 6 30-4, 17307-1 #### [facility] CLIA [id number] [address] [place] [address] [place] Neutrophils (Bld) [#/Vol] 6.29 10*3/uL Normal 1.45-7.50 [facility] Comment on above: Order Comment: Speci men Type: URINE SPECIMEN Ordering Facility: [facility] Address: [address] [place] [address] Performed By: #### 6 30-4, 11592-9 #### [facility] CLIA [id number] [address] [place] [address] [place] Neutrophils/100 WBC (Bld) 64.0 % Normal [facility] Comment on above: Order Comment: Speci men Type: URINE SPECIMEN Ordering Facility: [facility] Address: [address] [place] [address] Performed By: #### 6 30-4, 02803-1 #### [facility] CLIA [id number] [address] [place] [address] [place] Nucleated RBC/100 WBC (Bld) [Ratio] 0.0 /100 WBC Normal [facility] Comment on above: Order Comment: Speci men Type: URINE SPECIMEN Ordering Facility: [facility] Address: [address] [place], [place] [address] Performed By: #### 6 30-4, 91137-1 #### [facility] CLIA [id number] [address] [place] [address] [place] PLATELET ESTIMATE Adequate Normal [facility] Comment on above: Order Comment: Speci men Type: URINE SPECIMEN Ordering Facility: [facility] Address: [address] [place], [place] [address] Performed By: #### 6 30-4, 98956-5 #### [facility] CLIA [id number] [address] [place] [address] [place] Platelet mean volume (Bld) [Entitic vol] 10.2 fL Normal 9.0-12.7 [facility] Comment on above: Order Comment: Speci men Type: URINE SPECIMEN Ordering Facility: [facility] Address: [address] [place], [place] [address] Performed By: #### 6 30-4, 92970-2 #### [facility] CLIA [id number] [address] [place] [address] [place] Platelets (Bld) [#/Vol] 258 10*3/uL Normal 150-400 [facility] Comment on above: Order Comment: Speci men Type: URINE SPECIMEN Ordering Facility: [facility] Address: [address] [place], [place] [address] Performed By: #### 6 30-4, 99942-9 #### [facility] CLIA [id number] [address] [place] [address] [place] RBC (Bld) [#/Vol] 4.26 10*6/uL Normal 4.20-6.00 [facility] Comment on above: Order Comment: Speci men Type: URINE SPECIMEN Ordering Facility: [facility] Address: [address] [place], [place] [address] Performed By: #### 6 30-4, 87858-4 #### [facility] CLIA [id number] [address] [place] [address] [place] RED CELL MORPH Reviewed: unremarkable Normal [facility] Comment on above: Order Comment: Speci men Type: URINE SPECIMEN Ordering Facility: [facility] Address: [address] [place], [place] [address] Performed By: #### 6 30-4, 72540-7 #### [facility] CLIA [id number] [address] [place] [address] [place] WAM - ABS BASO 0.00 k/uL Normal <0.11 [facility] Comment on above: Order Comment: Speci men Type: URINE SPECIMEN Ordering Facility: [facility] Address: [address] [place] [address] Performed By: #### 6 30-4, 40133-9 #### [facility] CLIA [id number] [address] [place] [address] [place] WAM - ABS MONO 1.77 k/uL High <0.87 [facility] Comment on above: Order Comment: Speci men Type: URINE SPECIMEN Ordering Facility: [facility] Address: [address] [place] [address] Performed By: #### 6 30-4, 98582-7 #### [facility] CLIA [id number] [address] [place] [address] [place] WAM - MONO% 18.0 % Normal [facility] Comment on above: Order Comment: Speci men Type: URINE SPECIMEN Ordering Facility: [facility] Address: [address] [place] [address] Performed By: #### 6 30-4, 80403-8 #### [facility] CLIA [id number] [address] [place] [address] [place] WAM ABSOLUTE NRBC <0.01 Normal <0.01 [facility] Comment on above: Order Comment: Speci men Type: URINE SPECIMEN Ordering Facility: [facility] Address: [address] [place], [place] [address] Performed By: #### 6 30-4, 77890-1 #### [facility] CLIA [id number] [address] [place] [address] [place] WBC (Bld) [#/Vol] 9.83 10*3/uL Normal 3.70-11.00 [facility] Comment on above: Order Comment: Speci men Type: URINE SPECIMEN Ordering Facility: [facility] Address: [address] [place], [place] [address] Performed By: #### 6 30-4, 43584-0 #### [facility] CLIA [id number] [address] [place] [address] [id number] ED NOTEon 11-07-2021 ED NOTE HNO ID: [id number] Author: Yoshi Schumacher RN Service: ? Author Type: Registered Nurse Type: ED Notes Filed: 11/07/2021 5:14 PM Note Text: Pt provided with discharged instructions. Medications gone over and all questions answered. Pt. Left with steady gait with friend for a ride. [facility] ED NOTE HNO ID: [id number] Author: Flaquita Donnelly RN Service: ? Author Type: Registered Nurse Type: ED Notes Filed: 11/07/2021 1:24 PM Note Text: Pt to ED for urinary retention. Pt had appointment with Urology on Wednesday, but was not able to be seen. Pt denies pain, but reports pressure in the bladder. Pt states he is not able to urinate completely and reports dribbling. [facility] ED PROV NOTEon 11-07-2021 ED PROV NOTE HNO ID: [id number] Author: Keely Gutierrez DO Service: Emergency Medicine Author Type: Physician Type: ED Provider Notes Filed: 11/07/2021 5:24 PM Note Text: ED Provider Note Patient Name: Norberto Washington : 1940 SERVICE DATE: 11/07/21 History No chief complaint on file. Patient presents to the ED for evaluation of urinary retention. He is a history of BPH status post surgery with urology in the distant past. He was actually scheduled to undergo another procedure this Wednesday with his urologist out of [place] but was notified that his urologist had a stroke and so this was canceled. He states has been having worsening urinary retention. He is urinating and last time he urinated was a few hours ago but he feels like he is able to get less and less out. No significant abdominal pain. No fever or chills. No flank pain. No other concerns voiced at this time. He has had a catheter in the past. No past medical history on file. No past surgical history on file. No family history on file. Social History Tobacco Use Smoking status: Former Packs/day: 1.50 Years: 14.00 Pack years: 21.00 Types: Cigarettes Quit date: 03/15/1971 Years since quittin.6 Smokeless tobacco: Not on file Substance and Sexual Activity Alcohol use: Yes Comment: social Drug use: Not on file Sexual activity: Not on file ALLERGIES Allergen Reactions Cipro [Ciprofloxaci* GI Upset Sulfa (Sulfonamide * Rash Review of Systems Constitutional: Negative for fever. Gastrointestinal: Negative for abdominal pain. Genitourinary: Positive for decreased urine volume and difficulty urinating. Negative for flank pain. Musculoskeletal: Negative for back pain. Physical Exam Vitals [11/07/21 1323] BP Pulse Temp Temp src Resp SpO2 Weight Height 120/58 82 37.2 ?C (99 ?F) Oral 16 97 % 95.7 kg (211 lb) 1.905 m (6' 3 ) Physical Exam Vitals and nursing note reviewed. Constitutional: General: He is not in acute distress. Appearance: Normal appearance. He is not ill-appearing. Cardiovascular: Rate and Rhythm: Normal rate and regular rhythm. Pulses: Normal pulses. Heart sounds: Normal heart sounds. Pulmonary: Effort: Pulmonary effort is normal. Breath sounds: Normal breath sounds. Abdominal: General: Abdomen is flat. Palpations: Abdomen is soft. Tenderness: There is no abdominal tenderness. There is no guarding or rebound. Musculoskeletal: General: Normal range of motion. Cervical back: Neck supple. Skin: General: Skin is warm and dry. Neurological: General: No focal deficit present. Mental Status: He is alert. Motor: No weakness. Psychiatric: Mood and Affect: Mood normal. Behavior: Behavior normal. Diagnostic Testing ED Labs Ordered and Reviewed BASIC METABOLIC PNL - Abnormal; Notable for the following components: Result Value Ref Range Glucose 129 (*) 74 - 99 mg/dL Creatinine 1.25 (*) 0.73 - 1.22 mg/dL Sodium 130 (*) 136 - 144 mmol/L Chloride 95 (*) 97 - 105 mmol/L Estimated Glomerular Filtration Rate 57 (*) >=60 mL/min/1.73m? All other components within normal limits CBC + DIFF - Abnormal; Notable for the following components: Abs Leon 1.77 (*) <0.87 k/uL All other components within normal limits Narrative: This is an appended report. These results have been appended to a previously verified report. URINALYSIS, WITH MICROSCOPIC - Abnormal; Notable for the following components: Ketones, Urine Trace (*) Negative Casts, Hyaline 1-3 /LPF (*) 0 /LPF All other components within normal limits URINE CULTURE US KIDNEY/BLADDER Final Result IMPRESSION: Trabeculated bladder wall suggesting an element of bladder outlet obstruction. Multiple renal cysts one of which is mildly complex. Manager Of Maintenance: [facility] Transcribe Date/Time: Nov 07 2021 2:57P Dictated by : NEHEMIAS COLBERT MD This examination was interpreted and the report reviewed and electronically signed by: NEHEMIAS COLBERT MD on Nov 07 2021 3:09PM EST Procedures ED Course / Clinical Impression Clinical Impressions as of 11/07/21 1724 Urinary retention History of BPH Hyponatremia MDM / Disposition / Plan Blood work does not suggest sepsis. Mild hyponatremia noted. He was given saline. His UA does not suggest infection. Renal ultrasound results were reviewed. No hydronephrosis. There may be an element of bladder obstruction. He is able to empty his bladder for the most part. There was about 179 cc of urine when the ultrasound was performed and he was able to urinate after the ultrasound. I offered to place a Hamilton for comfort but he elects to hold off on a Hamilton catheter as he is able to urinate at this time in the setting of having a scheduled follow-up for this Wednesday with urology which we were able to obtain. He was instructed to return to the ER anytime should he develop acute urinary retention with inability to urinate for Hamilton catheter placement at th (more content not included)... Normal [facility] US KIDNEY/BLADDERon 11-08-19 US KIDNEY/BLADDER * * *Final Report* * * DATE OF EXAM: Nov 07 2021 2:52PM [facility] 1055 - US KIDNEY/BLADDER / PROCEDURE REASON: Urinary retention * * * * Physician Interpretation * * * * EXAMINATION: RENAL ULTRASOUND CLINICAL HISTORY: Urinary retention TECHNIQUE: Sonography of the kidneys and urinary bladder was performed. Images were obtained and stored in a permanent archive. MQ: UR_1 COMPARISON: None RESULT: Right Kidney: -Renal length: 12.6 cm -Parenchyma: Normal parenchymal echogenicity. Normal parenchymal thickness. -Collecting system: No hydronephrosis. -Calculus: No echogenic, shadowing calculus. -Lesion: Lower pole right renal cyst measuring 1.5 x 1.6 x 2.1 cm Left Kidney: -Renal length: 13.0 cm -Parenchyma: Normal parenchymal echogenicity. Normal parenchymal thickness. -Collecting system: No hydronephrosis. -Calculus: No echogenic, shadowing calculus. -Lesion: Left renal cysts are seen including a septated cyst measuring 3.4 x 2.4 x 2.8 cm. Bladder: Lobulated contour with mild bladder wall thickening. Calculated volume 179 cc. IMPRESSION: Trabeculated bladder wall suggesting an element of bladder outlet obstruction. Multiple renal cysts one of which is mildly complex. Manager Of Maintenance: [facility] Transcribe Date/Time: Nov 07 2021 2:57P Dictated by : NEHEMIAS COLBERT MD This examination was interpreted and the report reviewed and electronically signed by: NEHEMIAS COLBERT MD on Nov 07 2021 3:09PM EST [id number] Normal [facility] Urinalysis complete panel (U )on 11-07-2021 Bilirubin Ql (U) Negative Normal Negative [facility] Comment on above: Order Comment: Speci men Type: URINE SPECIMEN Ordering Facility: [facility] Address: [address] [place] [address] Performed By: #### 6 30-4, 94109-6 #### [facility] CLIA [id number] [address] [place] [address] [place] Clarity (Unsp spec) Clear Normal Clear [facility] Comment on above: Order Comment: Speci men Type: URINE SPECIMEN Ordering Facility: [facility] Address: [address] [place] [address] Performed By: #### 6 30-4, 41461-8 #### [facility] CLIA [id number] [address] [place] [address] [place] Color (U) Yellow Normal Yellow [facility] Comment on above: Order Comment: Speci men Type: URINE SPECIMEN Ordering Facility: [facility] Address: [address] [place], [place] [address] Performed By: #### 6 30-4, 71341-7 #### [facility] CLIA [id number] [address] [place] [address] [place] Epithelial cells LM.HPF (Urine sed) [#/Area] Few Normal [facility] Comment on above: Order Comment: Speci men Type: URINE SPECIMEN Ordering Facility: [facility] Address: [address] [place] [address] Performed By: #### 6 30-4, 99743-3 #### [facility] CLIA [id number] [address] [place] [address] [place] Glucose Test strip (U) [Mass/Vol] Negative Normal Negative [facility] Comment on above: Order Comment: Speci men Type: URINE SPECIMEN Ordering Facility: [facility] Address: [address] [place] [address] Performed By: #### 6 30-4, 59069-4 #### [facility] CLIA [id number] [address] [place] [address] [place] Hemoglobin Ql (U) Negative Normal Negative [facility] Comment on above: Order Comment: Speci men Type: URINE SPECIMEN Ordering Facility: [facility] Address: [address] [place], [place] [address] Performed By: #### 6 30-4, 37183-7 #### [facility] CLIA [id number] [address] [place] [address] [place] Hyaline casts (Urine sed) [#/Area] 1-3 /LPF Abnormal 0 /LPF [facility] Comment on above: Order Comment: Speci men Type: URINE SPECIMEN Ordering Facility: [facility] Address: [address] [place], [place] [address] Performed By: #### 6 30-4, 99067-8 #### [facility] CLIA [id number] [address] [place] [address] [place] Ketones Ql (U) Trace Abnormal Negative [facility] Comment on above: Order Comment: Speci men Type: URINE SPECIMEN Ordering Facility: [facility] Address: [address] [place] [address] Performed By: #### 6 30-4, 45148-0 #### [facility] CLIA [id number] [address] [place] [address] [place] Leukocyte esterase Test strip Ql (U) Negative Normal Negative [facility] Comment on above: Order Comment: Speci men Type: URINE SPECIMEN Ordering Facility: [facility] Address: [address] [place] [address] Performed By: #### 6 30-4, 46027-2 #### [facility] CLIA [id number] [address] [place] [address] [place] Nitrite Ql (U) Negative Normal Negative [facility] Comment on above: Order Comment: Speci men Type: URINE SPECIMEN Ordering Facility: [facility] Address: [address] [place] [address] Performed By: #### 6 30-4, 77494-1 #### [facility] CLIA [id number] [address] [place] [address] [place] pH (U) 5.5 [pH] Normal 5.0-8.0 [facility] Comment on above: Order Comment: Speci men Type: URINE SPECIMEN Ordering Facility: [facility] Address: [address] [place] [address] Performed By: #### 6 30-4, 34842-2 #### [facility] CLIA [id number] [address] [place] [address] [place] Protein (U) [Mass/Vol] Negative Normal [facility] Comment on above: Order Comment: Speci men Type: URINE SPECIMEN Ordering Facility: [facility] Address: [address] [place] [address] Performed By: #### 6 30-4, 90026-1 #### [facility] CLIA [id number] [address] [place] [address] [place] RBC LM.HPF (Urine sed) [#/Area] 0-3 /HPF Normal 0-3 /HPF [facility] Comment on above: Order Comment: Speci men Type: URINE SPECIMEN Ordering Facility: [facility] Address: [address] [place] [address] Performed By: #### 6 30-4, 15929-4 #### [facility] [facility] CLIA [id number] [address] [place] [address] [place] Specific gravity (U) [Rel density] 1.024 Normal 1.005-1.030 [facility] Comment on above: Order Comment: Speci men Type: URINE SPECIMEN Ordering Facility: [facility] Address: [address] [place] [address] Performed By: #### 6 30-4, 22537-0 #### [facility] CLIA [id number] [address] [place] [address] [place] Urobilinogen Ql (U) 0.2 EU/dL Normal 0.2-1.0 EU/dL [facility] Comment on above: Order Comment: Speci men Type: URINE SPECIMEN Ordering Facility: [facility] Address: [address] [place] [address] Performed By: #### 6 30-4, 41613-9 #### [facility] CLIA [id number] [address] [place] [address] [place] WBC LM.HPF (Urine sed) [#/Area] 0-5 /HPF Normal 0-5 /HPF [facility] Comment on above: Order Comment: Speci men Type: URINE SPECIMEN Ordering Facility: [facility] Address: [address] [place] [id number] Performed By: #### 6 30-4, 06884-2 #### [facility] CLIA [id number] [address] [place] [address] [place] [address] [place] Ambulatory Visit Summaryon 0 10-28-2021 Ambulatory Visit Summary NORBERTO WASHINGTON :1940 Visit Date:10/28/2021 Ambulatory Visit Instructions Your Diagnosis BPH with urinary obstruction Nocturia Post-void dribbling Incomplete emptying of bladder Urinary incontinence Tests Performed Urnls Dip Stick Auto w/o Microscopy POC 74669 Your Care Team Attending Physician - Billy Connolly MD, Paul Valdes Primary Care Physician - CAMPBELL NARANJO DO This Is Your Medications List cephalexin (Keflex 500 mg Cap) tamsulosin (tamsulosin 0.4 mg Cap) Contact prescribing physician if questions or concerns amlodipine (amLODIPine 5 mg Tab) gabapentin (gabapentin 300 mg Cap) glipiZIDE (glipiZIDE 5 mg Tab) glucosamine (glucosamine hydrochloride 1500 mg oral tablet) lisinopril (lisinopril 10 mg Tab) lovastatin (lovastatin 40 mg Tab) Procedures Performed TURP - Transurethral resection of prostate (10/03/2019), TURP - Transurethral resection of prostate (09/20/2019), Cystourethroscopy with dilation of urethral stricture (07/27/2019), Appendectomy, CE - Cataract extraction, Ts - Tonsillectomy. Discharge Vitals Heart Rate (Peripheral) 81 Respiratory Rate 16 Blood Pressure 139/74 What to do next You Need to Schedule the Following Appointments Follow Up with Billy Connolly MD, Paul Valdes, URO When: Comments: Will schedule Cysto Where: [facility] [address] , [place] [address]- Medications What How Much When Instructions Unchanged cephalexin (Keflex 500 mg Cap) 1 Capsules By Mouth Every 12 hours Unchanged tamsulosin (tamsulosin 0.4 mg Cap) 1 Capsules By Mouth Every day Unchanged amlodipine (amLODIPine 5 mg Tab) By Mouth Every day Contact prescribing physician if questions or concerns Unchanged gabapentin (gabapentin 300 mg Cap) By Mouth 3 times a day Contact prescribing physician if questions or concerns Unchanged glipiZIDE (glipiZIDE 5 mg Tab) By Mouth Every day Contact prescribing physician if questions or concerns Unchanged glucosamine (glucosamine hydrochloride 1500 mg oral tablet) 1 Tablets By Mouth Every day Contact prescribing physician if questions or concerns Unchanged lisinopril (lisinopril 10 mg Tab) By Mouth Every day Contact prescribing physician if questions or concerns Unchanged lovastatin (lovastatin 40 mg Tab) By Mouth Every day Contact prescribing physician if questions or concerns Test Results Urnls Dip Stick Auto w/o Microscopy POC 06159 (10/28/2021) Bilirubin Urine Dipstick - Negative Blood Urine Dipstick - Negative Glucose Urine Dipstick - Negative Ketones Urine Dipstick - Negative Leukocytes Urine Dipstick - Negative Nitrite Urine Dipstick - Negative Protein Urine Dipstick - Negative Specific Fowler Urine Dipstick - 1.015 Urine Appearance Urine Dipstick - Clear Urine Color Urine Dipstick - Light yellow Urobilinogen Urine Dipstick - Normal 0.2-1 EU/dl pH Urine Dipstick - 6 Allergies Cipro (Hives) sulfa drugs (Hives) Problems Ongoing - Any problem that you are currently receiving treatment for. Anticoagulated Arthritis BPH with urinary obstruction Dysuria Gross hematuria High cholesterol Hypertension Incomplete bladder emptying Leaking of urine Microscopic hematuria Nocturia Post-void dribbling Retention of urine Type 2 diabetes mellitus Weak urine stream Education [employer] Benign Prostatic Hyperplasia Benign prostatic hyperplasia (BPH) is an enlarged prostate gland that is caused by the normal aging process and not by cancer. The prostate is a walnut-sized gland that is involved in the production of semen. It is located in front of the rectum and below the bladder. The bladder stores urine and the urethra is the tube that carries the urine out of the body. The prostate may get bigger as a man gets older. An enlarged prostate can press on the urethra. This can make it harder to pass urine. The build-up of urine in the bladder can cause infection. Back pressure and infection may progress to bladder damage and kidney (renal) failure. What are the causes? This condition is part of a normal aging process. However, not all men develop problems from this condition. If the prostate enlarges away from the urethra, urine flow will not be blocked. If it enlarges toward the urethra and compresses it, there will be problems passing urine. What increases the risk? This condition is more likely to develop in men over the age of 50 years. What are the signs or symptoms? Symptoms of this condition include: ? Getting up often during the night to urinate. ? Needing to urinate frequently during the day. ? Difficulty starting urine flow. ? Decrease in size and strength of your urine stream. ? Leaking (dribbling) after urinating. ? Inability to pass urine. This needs immediate treatment. ? Inability to completely empty your bladder. ? Pain when you pass urine. This is more common if there is also an infection. ? Urina (more content not included)... Normal [facility] Patient Educationon 10-29-19 Patient Education Urology Benign Prostatic Hyperplasia Benign prostatic hyperplasia (BPH) is an enlarged prostate gland that is caused by the normal aging process and not by cancer. The prostate is a walnut-sized gland that is involved in the production of semen. It is located in front of the rectum and below the bladder. The bladder stores urine and the urethra is the tube that carries the urine out of the body. The prostate may get bigger as a man gets older. An enlarged prostate can press on the urethra. This can make it harder to pass urine. The build-up of urine in the bladder can cause infection. Back pressure and infection may progress to bladder damage and kidney (renal) failure. What are the causes? This condition is part of a normal aging process. However, not all men develop problems from this condition. If the prostate enlarges away from the urethra, urine flow will not be blocked. If it enlarges toward the urethra and compresses it, there will be problems passing urine. What increases the risk? This condition is more likely to develop in men over the age of 50 years. What are the signs or symptoms? Symptoms of this condition include: ? Getting up often during the night to urinate. ? Needing to urinate frequently during the day. ? Difficulty starting urine flow. ? Decrease in size and strength of your urine stream. ? Leaking (dribbling) after urinating. ? Inability to pass urine. This needs immediate treatment. ? Inability to completely empty your bladder. ? Pain when you pass urine. This is more common if there is also an infection. ? Urinary tract infection (UTI). How is this diagnosed? This condition is diagnosed based on your medical history, a physical exam, and your symptoms. Tests will also be done, such as: ? A post-void bladder scan. This measures any amount of urine that may remain in your bladder after you finish urinating. ? A digital rectal exam. In a rectal exam, your health care provider checks your prostate by putting a lubricated, gloved finger into your rectum to feel the back of your prostate gland. This exam detects the size of your gland and any abnormal lumps or growths. ? An exam of your urine (urinalysis). ? A prostate specific antigen (PSA) screening. This is a blood test used to screen for prostate cancer. ? An ultrasound. This test uses sound waves to electronically produce a picture of your prostate gland. Your health care provider may refer you to a specialist in kidney and prostate diseases (urologist). How is this treated? Once symptoms begin, your health care provider will monitor your condition (active surveillance or watchful waiting). Treatment for this condition will depend on the severity of your condition. Treatment may include: ? Observation and yearly exams. This may be the only treatment needed if your condition and symptoms are mild. ? Medicines to relieve your symptoms, including: ? Medicines to shrink the prostate. ? Medicines to relax the muscle of the prostate. ? Surgery in severe cases. Surgery may include: ? Prostatectomy. In this procedure, the prostate tissue is removed completely through an open incision or with a laparoscope or robotics. ? Transurethral resection of the prostate (TURP). In this procedure, a tool is inserted through the opening at the tip of the penis (urethra). It is used to cut away tissue of the inner core of the prostate. The pieces are removed through the same opening of the penis. This removes the blockage. ? Transurethral incision (TUIP). In this procedure, small cuts are made in the prostate. This lessens the prostate's pressure on the urethra. ? Transurethral microwave thermotherapy (TUMT). This procedure uses microwaves to create heat. The heat destroys and removes a small amount of prostate tissue. ? Transurethral needle ablation (TUNA). This procedure uses radio frequencies to destroy and remove a small amount of prostate tissue. ? Interstitial laser coagulation (ILC). This procedure uses a laser to destroy and remove a small amount of prostate tissue. ? Transurethral electrovaporization (TUVP). This procedure uses electrodes to destroy and remove a small amount of prostate tissue. ? Prostatic urethral lift. This procedure inserts an implant to push the lobes of the prostate away from the urethra. Follow these instructions at home: ? Take qiua-bak-dhutoex and prescription medicines only as told by your health care provider. ? Monitor your symptoms for any changes. Contact your health care provider with any changes. ? Avoid drinking large amounts of liquid before going to bed or out in public. ? Avoid or reduce how much caffeine or alcohol you drink. ? Give yourself time when you urinate. ? Keep all follow-up visits as told by your health care provider. This is important. Contact a health care provider if: ? You have unexplained back pain. ? Your symptoms do not get better with treatment. ? You d (more content not included)... Normal [facility] Urology Office/Clinic Noteon 10-28-2021 Urology Office/Clinic Note Chief Complaint 20 month follow up with PVR This 81-year-old male has a history of prostatic hyperplasia. Status post x2. This was in 2019. Recently has been complaining of urinary frequency, hesitancy, urge incontinence and pain uresis. This all started approximately 6 months ago and is becoming more pronounced. He is here today to establish for management of this change in voiding pattern. HPI Staff Norberto is here today for a 20 month follow up with PVR. Previous PVR done on 12/14/19 was 24ml. Previous DX: BPH with urinary obstruction, microscopic hematuria, nocturia, dysuria. S/P TURP 10/03/19/09/20/19, Cysto/UD done on 07/27/19. PVR was 210ml. Dysuria: _Denies Incomplete bladder emptying: _yes Hematuria: _Denies Frequency: _occ Urgency: _Denies Nocturia: _2-5x Stream: _varies from steady to weak Leaking: _occ Post void dripping: _occ Wearing pads/ Depends: _yes just in case Urge incontinence: _Denies Stress incontinence: _yes strenuous activity Incontinence without Sensory Awareness: _occ Abdominal pain: _Denies Flank pain: _Denies Sexual complaints: _ History of Present Illness Tests Reviewed: Reviewed UA, and PVR scan. I have reviewed and verified the staff HPI to be accurate for this encounter. I have reviewed the previous health record information and history for this patient from Dr. Cervantes There have been no associated fever, chills, flank pain, or blood in the urine. Denies any urinary infections since last encounter. Review of Systems ROS - Provider Constitutional: denies weight loss, denies hot flashes. Eyes: denies eye problems. Gastrointestinal: denies nausea, denies vomiting. Cardiovascular: denies chest pain or angina. Integumentary: no dryness Musculoskeletal: denies musculoskeletal symptoms. ENMT: denies otolaryngeal symptoms. Respiratory: no shortness of breath. Heme/Lymph: denies easy bleeding tendency, denies easy bruising tendency. Psychiatric: no confusion, no anxiety. Genitourinary: denies dysuria, denies hematuria, denies discharge, denies urinary frequency, denies urinary hesitancy, mild nocturia, denies incontinence, denies genital sores, denies decreased libido, and denies erectile dysfunction. Physical Exam Vitals & Measurements HR: 81(Peripheral) RR: 16 BP: 139/74 General Appearance: alert, no distress, well nourished, well developed male. Head: normocephalic . Eyes: normal orbit and globe. ENMT: normal examination of external ears. Chest: Lungs CTA, respirations non labored. Cardiovascular: regular rate and rhythm. Abdomen: soft, non distended, no tenderness, no mass or organomegaly, no hernia. Genitourinary: normal scrotum, normal testes, normal urethra, normal epididymis, normal vas deferens/spermatic cord. Flank Pain: none. Bladder: nonpalpable. Penis: normal shaft, normal glans. Prostate: normal prostate, estimated weight 40 gms, no hard nodule observed. Lymph Nodes: unremarkable palpation of the cervical area. Skin: warm, dry, no bruising. Psychiatric: cooperative, affect appropriate for age, normal judgement, euthymic mood. Assessment/Plan Patient has a history of prostatic hyperplasia. Status post TURP x2 in 2019. He has symptoms of outlet obstruction. Possible he may have a bladder neck contracture or some residual prostatic hyperplasia causing outlet obstruction. His PVR today was 210 cc. This compares to previous PVR of 24 cc and December 2019. Our plan at this point is proceed with cystoscopy and possible urethral dilation. Preop antibiotics have been ordered. All of his questions have been answered. Informed consent has been obtained. Rectal examination revealed a 40 g nonnodular premaxilla prostate gland. 1. BPH with urinary obstruction (N40.1: Benign prostatic hyperplasia with lower urinary tract symptoms) Variable stream from Steady to weak, mild frequency, c/o of sometimes having problems releasing urine for the past 6 months. Patient has put it off due to pts having back problems. S/p TURP done 10/03/2019 (Done in 2 stage procedure). UA done today is negative for blood and infection. No recent PSA. PVR done today was 210ml. Will schedule a Cysto to check for scar tissue. The risks and benefits for cystoscopy have been discussed. The risks include bleeding, infection, and irritation of the bladder and urinary channel, among others. The patient, after being informed of procedural details and after questions have been answered, wishes to proceed. Full informed consent has been obtained. Will order Local anesthesia. Ordered: Measure Post Void residual urine and/or bladder capacity by US- non-imaging 46508 PSA Total Urnls Dip Stick Auto w/o Microscopy POC 81793 Urology Procedure Order 2. Nocturia (R35.1: Nocturia) moderate, Variable 2-5 times per night Ordered: Measure Post Void residual urine and/or bladder capacity by US- non-imaging 70842 PSA Total Urology Procedure Order 3. Post-void dribbling (N39.43: Post-v (more content not included)... Normal [facility] Comment on above: Result Comment: Elec tronically Signed By: Billy Connolly MD, Paul Valdes\.br\Date and Time Signed: 10/28/21 08:47 EDT\.br\Electronically Co-Signed By: Jessie Rivera\.br\Date and Time Co-Signed: 10/28/21 08:39 EDT MICROALBUMIN URINEon 022 Albumin, Urine 5.6 ug/mL Normal Not Estab. [facility] Comment on above: Performed By: #### M ALBLC #### [facility] [address] [place] [address] Dr. Juan Pablo Kaminski US CAROTID ART BILon 022 US CAROTID ART SIMONE EXAMINATION: US CAROTID ART SIMONE HISTORY: Cardiovascular symptoms COMPARISON: 10/02/2020 TECHNIQUE: Duplex Doppler ultrasound analysis of carotid and vertebral arteries. . Bilateral carotid arterial duplex examination was performed using B-mode, color flow and spectral analysis. Carotid stenosis is reported according to validated velocity parameters, similar to NASCET criteria. FINDINGS: RIGHT CAROTID ARTERY Moderate atherosclerotic plaque Subclavian: PSV: 151.0 cm/s cm/s EDV: 0.0 cm/s cm/s CCA: Prox: PSV: 150.7 cm/s cm/s EDV: 18.3 cm/s cm/s Mid: PSV: 147.0 cm/s cm/s EDV: 0.0 cm/s cm/s Distal: PSV: 143.1 cm/s cm/s EDV: 0.0 cm/s cm/s BULB: PSV: 118.2 cm/s cm/s EDV: 11.4 cm/s cm/s ICA: Prox: PSV: 95.2 cm/s cm/s EDV: 11.1 cm/s cm/s Mid: PSV: 74.5 cm/s cm/s EDV: 13.7 cm/s cm/s Distal: PSV: 110.8 cm/s cm/s EDV: 22.0 cm/s cm/s ECA: PSV: 139.2 cm/s cm/s EDV: 0.0 cm/s cm/s VERTEBRAL: PSV: 55.5 cm/s cm/s EDV: 7.5 cm/s cm/s ICA/CCA ratio: PSV: 0.8 EDV: LEFT CAROTID ARTERY Moderate atherosclerotic plaque. 63% area reduction in the bulb Subclavian: PSV: 187.1 cm/s cm/s EDV: 0.0 cm/s CCA: Prox: PSV: 199.0 cm/s cm/s EDV: 0.0 cm/s Mid: PSV: 182.7 cm/s cm/s EDV: 11.6 cm/s Distal: PSV: 105.9 cm/s cm/s EDV: 0.0 cm/s BULB: PSV: 160.4 cm/s cm/s EDV: 0.0 cm/s ICA: Prox: PSV: 104.7 cm/s cm/s EDV: 12.8 cm/s Mid: PSV: 82.0 cm/s cm/s EDV: 13.0 cm/s Distal: PSV: 78.1 cm/s cm/s EDV: 20.9 cm/s ECA: PSV: 137.2 cm/s cm/s EDV: 0.0 cm/s VERTEBRAL: PSV: 61.1 cm/s cm/s EDV: 7.3 cm/s ICA/CCA ratio: PSV: 0.9 EDV: 0.0 IMPRESSION: 63% area narrowing in the left carotid bulb 0-49% flow stenosis bilateral internal carotid arteries Spectral Doppler US Thresholds (Reference: Ghassan EG, et al. Radiology 2000; 214:247-252) Stenosis (%) PSV (cm/sec) VICA/VCCA 0-49 <150 <2.5 50-69 150-225 2.5-4.0 >70 >225 >4.0 Electronically authenticated by: SAMY TORRES Date: 2021-10-23 17:19 Normal [facility] CBC AUTO DIFFon 10-21-2021 BASO # 0.0 103/ul Normal 0.0-0.1 [facility] Comment on above: Performed By: #### A 1C #### [facility] [address] [place] [address] Dr. Juan Pablo Kaminski Basophils/100 WBC (Bld) 0.5 % Normal 0.2-2.0 [facility] Comment on above: Performed By: #### A 1C #### [facility] [address] [place] [address] Dr. Juan Pablo Kaminski EO # 0.3 103/ul Normal 0.0-0.7 [facility] Comment on above: Performed By: #### A 1C #### [facility] [address] [place] [address] Dr. Juan Pablo Kaminski Eosinophils/100 WBC (Bld) 3.6 % Normal 0.9-7.0 [facility] Comment on above: Performed By: #### A 1C #### [facility] [address] [place] [address] Dr. Juan Pablo Kaminski Erythrocyte distribution width (RBC) [Ratio] 11.1 % Normal 11.0-15.0 [facility] Comment on above: Performed By: #### A 1C #### [facility] [address] [place] [address] Dr. Juan Pablo Kaminski Hematocrit (Bld) [Volume fraction] 41.8 % Critically low 42.0-54.0 [facility] Comment on above: Performed By: #### A 1C #### [facility] [address] [place] [address] Dr. Juan Pablo Kaminski Hemoglobin (Bld) [Mass/Vol] 14.1 g/dL Normal 14.0-18.0 [facility] Comment on above: Performed By: #### A 1C #### [facility] [address] [place] [address] Dr. Juan Pablo Kaminski IG # 0.03 10e3/ul Normal 0.00-0.03 [facility] Comment on above: Performed By: #### A 1C #### [facility] [address] [place] [address] Dr. Juan Pablo Kaminski IG % 0.4 % Normal 0.0-0.5 [facility] Comment on above: Performed By: #### A 1C #### [facility] [address] [place] [address] Dr. Juan Pablo Kaminski LYMPH # 2.2 103/ul Normal 1.2-3.8 [facility] Comment on above: Performed By: #### A 1C #### [facility] [address] [place] [address] Dr. Juan Pablo Kaminski Lymphocytes/100 WBC (Bld) 29.4 % Normal 20.5-60.0 [facility] Comment on above: Performed By: #### A 1C #### [facility] [address] [place] [address] Dr. Juan Pablo Kaminski MANUAL DIFF REQ NO Normal [facility] Comment on above: Performed By: #### A 1C #### [facility] [address] [place] [address] Dr. Juan Pablo Kaminski MCH (RBC) [Entitic mass] 31.8 pg Normal 25.9-34.0 [facility] Comment on above: Performed By: #### A 1C #### [facility] [address] [place] [address] Dr. Juan Pablo Kaminski MCHC (RBC) [Mass/Vol] 33.7 g/dL Normal 29.9-35.2 [facility] Comment on above: Performed By: #### A 1C #### [facility] [address] [address] [address] Juan Pablo Kaminski MCV (RBC) [Entitic vol] 94.1 fL Critically high 80.0-94.0 [facility] Comment on above: Performed By: #### A 1C #### [facility] [address] [address] [address] Juan Pablo Kaminski MONO # 0.9 103/ul Critically high 0.3-0.8 [facility] Comment on above: Performed By: #### A 1C #### [facility] [address] [place] [address] Dr. Juan Pablo Kaminski Monocytes/100 WBC (Bld) 11.7 % Normal 1.7-12.0 [facility] Comment on above: Performed By: #### A 1C #### [facility] [address] [place] [address] Dr. Juan Pablo Kaminski NEUT # 4.0 103/ul Normal 1.4-6.5 [facility] Comment on above: Performed By: #### A 1C #### [facility] [address] [place] [address] Dr. Juan Pablo Kaminski Neutrophils/100 WBC (Bld) 54.4 % Normal 43.0-75.0 [facility] Comment on above: Performed By: #### A 1C #### [facility] [address] [address] [address] Juan Pablo Kaminski Platelet mean volume (Bld) [Entitic vol] 8.6 fL Critically low 9.5-13.5 [facility] Comment on above: Performed By: #### A 1C #### [facility] [address] [place] [address] Dr. Juan Pablo Kaminski PLT 231 103/ul Normal 150-450 [facility] Comment on above: Performed By: #### A 1C #### [facility] [address] [place] [address] Dr. Juan Pablo Kaminski RBC 4.44 106/ul Critically low 4.70-6.10 [facility] Comment on above: Performed By: #### A 1C #### [facility] [address] [place] [address] Dr. Juan Pablo Kaminski WBC 7.3 103/ul Normal 4.0-11.0 [facility] Comment on above: Performed By: #### A 1C #### [facility] [address] [place] [address] [address] Juan Pablo Kaminski DIRECT LDLon 10-21-2021 Cholesterol in LDL [Mass/Vol] 106 mg/dL Normal [facility] Comment on above: Performed By: #### A LT, BMP, DLDL #### [facility] [address] [place] [address] Dr. Juan Pablo Kaminski DLDL NORMAL SEE BELOW Normal [facility] Comment on above: Result Comment: <100 mg/dl OPTIMAL 100 - 129 mg/dl NEAR OR ABOVE OPTIMAL 130 - 159 mg/dl BORDERLINE HIGH 160 - 189 mg/dl HIGH >190 mg/dl VERY HIGH Performed By: #### A LT, BMP, DLDL #### [facility] [address] [place] [address] Dr. Juan Pablo Kaminski GLYCOHEMOGLOBIN A1Con 2021 ADA RECOMMENDATION SEE BELOW Normal [facility] [facility] Comment on above: Result Comment: ADA RECOMMENDED LIMIT 4.0 - 6.0 ADA THERAPEUTIC TARGET < 7.0 ACTION SUGGESTED > 7.0 Performed By: #### A 1C #### [facility] [address] [place] [address] Dr. Juan Pablo Kaminski Glucose [Mass/Vol] 120 mg/dL Normal [facility] Comment on above: Performed By: #### A 1C #### [facility] [address] [place] [address] Dr. Juan Pablo Kaminski HbA1c (Bld) [Mass fraction] 5.8 % Normal 4.5-6.2 [facility] Comment on above: Performed By: #### A 1C #### [facility] [address] [place] [address] Dr. Juan Pablo Kaminski PROF CHEM 8 (BAS METB)on Anion gap [Moles/Vol] 12.7 mmol/L Normal [facility] Comment on above: Performed By: #### A 1C #### [facility] [address] [place] [address] Dr. Juan Pablo Kaminski Calcium [Mass/Vol] 8.7 mg/dL Normal 8.5-10.1 [facility] Comment on above: Performed By: #### A 1C #### [facility] [address] [place] [address] Dr. Juan Pablo Kaminski Chloride [Moles/Vol] 98 mmol/L Normal 98-107 [facility] Comment on above: Performed By: #### A 1C #### [facility] [address] [place] [address] Dr. Juan Pablo Kaminski CO2 [Moles/Vol] 28.0 mmol/L Normal 21.0-32.0 [facility] Comment on above: Performed By: #### A 1C #### [facility] [address] [place] [address] Dr. Juan Pablo Kaminski Creatinine [Mass/Vol] 1.07 mg/dL Normal 0.70-1.30 [facility] Comment on above: Performed By: #### A 1C #### [facility] [address] [place] [address] Dr. Juan Pablo Kaminski EGFR-AF MALAYSIAN >60 Normal >=60 [facility] Comment on above: Performed By: #### A 1C #### [facility] [address] [place] [address] Dr. Juan Pablo Kaminski EGFR-NON AF MALAYSIAN >60 Normal >=60 [facility] Comment on above: Performed By: #### A 1C #### [facility] [address] [place] [address] Dr. Juan Pablo Kaminski Glucose [Mass/Vol] 133 mg/dL Critically high 74-106 [facility] Comment on above: Performed By: #### A 1C #### [facility] [address] [place] [address] Dr. Juan Pablo Kaminski Potassium [Moles/Vol] 4.7 mmol/L Normal 3.5-5.1 [facility] Comment on above: Performed By: #### A 1C #### [facility] [address] [address] [address] Juan Pablo Kaminski Sodium [Moles/Vol] 134 mmol/L Critically low 136-145 [facility] Comment on above: Performed By: #### A 1C #### [facility] [address] [address] [address] Juan Pablo Kaminski Urea nitrogen [Mass/Vol] 17.0 mg/dL Normal 7.0-18.0 [facility] Comment on above: Performed By: #### A 1C #### [facility] [address] [address] [address] Juan Pablo Kaminski Urea nitrogen/Creatinine [Mass ratio] 15.9 mg/mg Normal [facility] Comment on above: Performed By: #### A 1C #### [facility] [address] [place] [address] Dr. [facility] ALT [Catalytic activity/Vol] 31 U/L Normal 16-63 [facility] Comment on above: Performed By: #### A 1C #### [facility] [address] [place] [address] Dr. Juan Pablo Kaminski GLYCOHEMOGLOBIN A1Con 2021 ADA RECOMMENDATION SEE BELOW Normal [facility] Comment on above: Result Comment: ADA RECOMMENDED LIMIT 4.0 - 6.0 ADA THERAPEUTIC TARGET < 7.0 ACTION SUGGESTED > 7.0 Performed By: #### A 1C #### [facility] [address] [place] [address] Dr. Juan Pablo Kaminski Glucose [Mass/Vol] 131 mg/dL Normal [facility] Comment on above: Performed By: #### A 1C #### [facility] [address] [place] [address] Dr. Juan Pablo Kaminski HbA1c (Bld) [Mass fraction] 6.2 % Normal 4.5-6.2 [facility] Comment on above: Performed By: #### A 1C #### [facility] [address] [place] [address] Dr. Juan Pablo Kaminski Vital Signs Date Time Vital Sign Value Performing Clinician Faci lity 02-23-2023 09:30-0500 Body height 190.5 cm Campbell Ball Other [employer] Other 02-23-2023 09:30-0500 Body mass index (BMI) [Ratio] 28.02 kg/m2 Campbell Ball Other [employer] Other 02-23-2023 09:30-0500 Body weight 101.7 kg Campbell Ball Other [employer] Other 02-23-2023 09:30-0500 Diastolic blood pressure 78 mm[Hg] Campbell Ball Other [employer] Other 02-23-2023 09:30-0500 Respiratory rate 12 /min Campbell Ball Other [employer] Other 02-23-2023 09:30-0500 Systolic blood pressure 157 mm[Hg] Campbell Ball Other [employer] Other 02-19-2023 10:45-0500 Body height 190.5 cm Campbell Ball Other [employer] Other 02-19-2023 10:45-0500 Body mass index (BMI) [Ratio] 28 kg/m2 Campbell Ball Other [employer] Other 02-19-2023 10:45-0500 Body weight 101.61 kg Campbell Ball Other [employer] Other 02-19-2023 10:45-0500 Diastolic blood pressure 72 mm[Hg] Campbell Ball Other [employer] Other 02-19-2023 10:45-0500 Respiratory rate 12 /min Campbell Ball Other [employer] Other 02-19-2023 10:45-0500 Systolic blood pressure 144 mm[Hg] Campbell Ball Other [employer] Other 02-02-2023 13:37-0500 Body weight 102.06 kg Leticia Rukhsana [employer].GENERAL OFFICE ASSOCIATE Work Phone: [facility] 02-02-2023 13:37-0500 Diastolic blood pressure 70 mm[Hg] Leticia [place] [employer].GENERAL OFFICE ASSOCIATE Work Phone: [facility] 02-02-2023 13:37-0500 Heart rate 65 /min Leticia Rukhsana [employer].GENERAL OFFICE ASSOCIATE Work Phone: [facility] 02-02-2023 13:37-0500 Systolic blood pressure 146 mm[Hg] Leticia Rukhsana [employer].GENERAL OFFICE ASSOCIATE Work Phone: [facility] 09-22-2022 12:15-0400 Body height 190.5 cm Campbell Ball Other [employer] Other 09-22-2022 12:15-0400 Diastolic blood pressure 82 mm[Hg] Campbell Ball Other [employer] Other 09-22-2022 12:15-0400 Systolic blood pressure 135 mm[Hg] Campbell Ball Other [employer] Other 09-17-2022 09:00-0400 Body height 190.5 cm Campbell Ball Other [employer] Other 09-17-2022 09:00-0400 Body mass index (BMI) [Ratio] 27.57 kg/m2 Campbell Ball Other [employer] Other 09-17-2022 09:00-0400 Body weight 100.06 kg Campbell Ball Other [employer] Other 09-17-2022 09:00-0400 Diastolic blood pressure 62 mm[Hg] Campbell Ball Other [employer] Other 09-17-2022 09:00-0400 Respiratory rate 12 /min Campbell Ball Other [employer] Other 09-17-2022 09:00-0400 Systolic blood pressure 128 mm[Hg] Campbell Ball Other [employer] Other 06-18-2022 10:00-0400 Body height 190.5 cm Campbell Ball Other [employer] Other 06-18-2022 10:00-0400 Body mass index (BMI) [Ratio] 28.02 kg/m2 Campbell Ball Other [employer] Other 06-18-2022 10:00-0400 Body weight 101.7 kg Campbell Ball Other [employer] Other 06-18-2022 10:00-0400 Diastolic blood pressure 62 mm[Hg] Campbell Ball Other [employer] Other 06-18-2022 10:00-0400 Respiratory rate 12 /min Campbell Ball Other [employer] Other 06-18-2022 10:00-0400 Systolic blood pressure 119 mm[Hg] Campbell Ball Other [employer] Other 04-08-2022 12:00-0500 Body height 190.5 cm Campbell Ball Other [employer] Other 04-08-2022 12:00-0500 Body mass index (BMI) [Ratio] 27.82 kg/m2 Campbell Ball Other [employer] Other 04-08-2022 12:00-0500 Body temperature 97.1 [degF] Campbell Ball Other [employer] Other 04-08-2022 12:00-0500 Body weight 100.97 kg Campbell Ball Other [employer] Other 04-08-2022 12:00-0500 Diastolic blood pressure 68 mm[Hg] Campbell Ball Other [employer] Other 04-08-2022 12:00-0500 SaO2% (BldA) [Mass fraction] 97 % Campbell Ball Other [employer] Other 04-08-2022 12:00-0500 Systolic blood pressure 124 mm[Hg] Campbell Ball Other [employer] Other 03-20-2022 10:00-0500 Body height 190.5 cm Campbell Ball Other [employer] Other 03-20-2022 10:00-0500 Body mass index (BMI) [Ratio] 27.95 kg/m2 Campbell Ball Other [employer] Other 03-20-2022 10:00-0500 Body weight 101.42 kg Campbell Ball Other [employer] Other 03-20-2022 10:00-0500 Diastolic blood pressure 60 mm[Hg] Campbell Ball Other [employer] Other 03-20-2022 10:00-0500 Respiratory rate 12 /min Campbell Ball Other [employer] Other 03-20-2022 10:00-0500 Systolic blood pressure 112 mm[Hg] Campbell Ball Other [employer] Other 01-08-2022 08:47-0400 Body weight 97.52 kg Leonard Dugan MD Work Phone: [facility] 01-08-2022 08:47-0400 Diastolic blood pressure 61 mm[Hg] Leonard Dugan MD Work Phone: [facility] 01-08-2022 08:47-0400 Heart rate 72 /min Leonard Dugan MD Work Phone: [facility] 01-08-2022 08:47-0400 Systolic blood pressure 139 mm[Hg] Leonard Dugan MD Work Phone: [facility] 12-26-2021 08:32-0400 Body temperature 98 [degF] DO Campbell Ball Work Phone: [facility] 12-26-2021 08:32-0400 Diastolic blood pressure 62 mm[Hg] DO Campbell Ball Work Phone: [facility] 12-26-2021 08:32-0400 Heart rate 75 /min DO Campbell Ball Work Phone: [facility] 12-26-2021 08:32-0400 Respiratory rate 18 /min DO Campbell Ball Work Phone: [facility] 12-26-2021 08:32-0400 SaO2% (BldA) [Mass fraction] 98 % DO Campbell Ball Work Phone: [facility] 12-26-2021 08:32-0400 Systolic blood pressure 146 mm[Hg] DO Campbell Ball Work Phone: [facility] 12-17-2021 16:22-0400 Body height 190.5 cm DO Campbell Ball Work Phone: [facility] 12-17-2021 16:22-0400 Body weight 97.52 kg DO Campbell Ball Work Phone: [facility] 12-17-2021 16:19-0400 Body temperature 98.4 [degF] DO Campbell Ball Work Phone: [facility] 12-17-2021 16:19-0400 Diastolic blood pressure 63 mm[Hg] DO Campbell Ball Work Phone: [facility] 12-17-2021 16:19-0400 Heart rate 66 /min DO Campbell Ball Work Phone: [facility] 12-17-2021 16:19-0400 Respiratory rate 16 /min DO Campbell Ball Work Phone: [facility] 12-17-2021 16:19-0400 SaO2% (BldA) [Mass fraction] 96 % DO Campbell Ball Work Phone: [facility] 12-17-2021 16:19-0400 Systolic blood pressure 135 mm[Hg] DO Campbell Ball Work Phone: [facility] 12-16-2021 14:41-0400 Diastolic blood pressure 62 mm[Hg] Leonard Dugan MD Work Phone: [facility] 12-16-2021 14:41-0400 Heart rate 69 /min Leonard Dugan MD Work Phone: [facility] 12-16-2021 14:41-0400 Respiratory rate 16 /min Leonard Dugan MD Work Phone: [facility] 12-16-2021 14:41-0400 Systolic blood pressure 141 mm[Hg] Leonard Dugan MD Work Phone: [facility] 12-11-2021 18:25-0400 Body temperature 97.5 [degF] DO Campbell Ball Work Phone: [facility] 12-11-2021 18:25-0400 Diastolic blood pressure 88 mm[Hg] DO Campbell Ball Work Phone: [facility] 12-11-2021 18:25-0400 Heart rate 67 /min DO Campbell Ball Work Phone: [facility] 12-11-2021 18:25-0400 Respiratory rate 20 /min DO Campbell Ball Work Phone: [facility] 12-11-2021 18:25-0400 SaO2% (BldA) [Mass fraction] 99 % DO Campbell Ball Work Phone: [facility] 12-11-2021 18:25-0400 Systolic blood pressure 175 mm[Hg] DO Campbell Ball Work Phone: [facility] 12-11-2021 16:57-0400 Body height 190.5 cm DO Campbell Ball Work Phone: [facility] 12-11-2021 16:57-0400 Body weight 98.5 kg DO Campbell Ball Work Phone: [facility] 12-10-2021 10:50-0400 Body weight 95.25 kg Nurse Emelia Work Phone: [facility] 12-10-2021 10:50-0400 Diastolic blood pressure 80 mm[Hg] Nurse Emelia Work Phone: [facility] 12-10-2021 10:50-0400 Heart rate 59 /min Nurse Emelia Work Phone: [facility] 12-10-2021 10:50-0400 Systolic blood pressure 152 mm[Hg] Nurse Emelia Work Phone: [facility] 12-09-2021 14:27-0400 Body weight 95.25 kg [employer] Work Phone: [facility] 12-09-2021 14:27-0400 Diastolic blood pressure 68 mm[Hg] [employer] Work Phone: [facility] 12-09-2021 14:27-0400 Heart rate 70 /min [employer] Work Phone: [facility] 12-09-2021 14:27-0400 Systolic blood pressure 164 mm[Hg] [employer] Work Phone: [facility] 11-12-2021 11:23-0400 Body weight 96.16 kg Leonard Dugan MD Work Phone: [facility] 11-12-2021 11:23-0400 Diastolic blood pressure 73 mm[Hg] Leonard Dugan MD Work Phone: [facility] 11-12-2021 11:23-0400 Heart rate 56 /min Leonard Dugan MD Work Phone: [facility] 11-12-2021 11:23-0400 Systolic blood pressure 162 mm[Hg] Leonard Dugan MD Work Phone: [facility] Encounters Encounter Date Encounter Type Care Provider Facility Start: 03-04-2023 End: 03-04-2023 ambulatory Campbell Naranjo Other [employer] Other Start: 03-04-2023 Telephone encounter Campbell SINGH [facility] Start: 02-23-2023 End: 02-23-2023 ambulatory Campbell Naranjo Other [employer] Other Start: 02-23-2023 Office outpatient vi sit 15 minutes Campbell Naranjo [facility] Start: 02-23-2023 Telephone encounter Campbell SINGH [facility] Start: 02-19-2023 End: 02-19-2023 ambulatory Campbell Naranjo Other [employer] Other Start: 02-19-2023 Office outpatient vi sit 15 minutes Campbell Naranjo [facility] Start: 02-02-2023 End: 02-02-2023 ambulatory LETICIA MILIAN Facility:[facility] Start: 02-02-2023 End: 02-02-2023 Patient encounter procedure Leticia Milian [employer].GENERAL OFFICE ASSOCIATE Work Phone: Urology Comment on above: BPH with obstruction /lower urinary tract symptoms (Primary Dx); Recurrent UTI; Weak urinary stream Start: 01-19-2023 End: 01-19-2023 ambulatory LETICIA MILIAN Facility:[facility] Start: 01-13-2023 End: 01-13-2023 Emergency department patient visit Campbell Naranjo Facility:[facility] Start: 01-13-2023 End: 01-13-2023 Emergency department patient visit DO Campbell Naranjo Work Phone: [facility] Work Phone: Start: 12-21-2022 End: 12-21-2022 ambulatory Campbell Naranjo Other [employer] Other Start: 12-21-2022 Telephone encounter Campbell Naranjo [facility] Start: 09-22-2022 End: 09-22-2022 ambulatory Campbell Naranjo Other [employer] Other Start: 09-22-2022 Office outpatient vi sit 15 minutes Campbell Naranjo [facility] Start: 09-20-2022 End: 09-20-2022 ambulatory Cornell Baptiste Other [employer] Other Start: 09-20-2022 Encounter by gabbi Baptiste [facility] Start: 09-17-2022 End: 09-17-2022 ambulatory Campbell Naranjo Other [employer] Other Start: 09-17-2022 Office outpatient vi sit 25 minutes Campbell Naranjo [facility] Start: 09-15-2022 End: 09-15-2022 ambulatory Cornell Baptiste Other [employer] Other Start: 09-15-2022 Encounter by gabbi Baptiste [facility] Start: 07-28-2022 End: 07-28-2022 ambulatory LETICIA Kin MILIAN Facility:[facility] Start: 07-20-2022 End: 07-20-2022 ambulatory LETICIA MILIAN Facility:[facility] Start: 06-25-2022 End: 06-26-[address] CAMPBELL NARANJO Facility:[facility] Start: 06-18-2022 End: 06-18-2022 ambulatory Campbell Naranjo Other [employer] Other Start: 06-18-2022 Office outpatient vi sit 25 minutes Campbell Naranjo [facility] Start: 06-02-2022 End: 06-03-[address] CAMPBELL NARANJO Facility:[facility] Start: 04-08-2022 End: 04-08-2022 ambulatory Campbell Naranjo Other [employer] Other Start: 04-08-2022 Office outpatient vi sit 15 minutes Campbell Naranjo [facility] Start: 03-24-2022 End: 03-24-2022 ambulatory Campbell Naranjo Other [employer] Other Start: 03-24-2022 Telephone encounter Campbell Naranjo [facility] Start: 03-20-2022 Office outpatient vi sit 25 minutes Campbell Naranjo [facility] Start: 03-20-2022 End: 03-21-[address] CAMPBELL NARANJO [facility] [employer] Other Start: 01-08-2022 End: 01-08-2022 Patient encounter procedure Leonard Dugan MD Work Phone: Urology Comment on above: Chronic epididymitis (Primary Dx); Left hydrocele; Weak urinary stream; BPH without obstruction/lower urinary tract symptoms; Epididymitis Start: 01-07-2022 Refill Leonard Dugan MD Work Phone: Urology Comment on above: Refill Request Start: 12-26-2021 End: 12-26-2021 ambulatory DO Campbell Naranjo Work Phone: [facility] Work Phone: Start: 12-26-2021 End: 12-26-2021 Discharged Recurring DO Campbell Quentin Work Phone: [facility] Start: 12-25-2021 End: 12-26-[address] CAMPBELL NARANJO Facility:[facility] Start: 12-17-2021 End: 12-17-2021 Emergency department patient visit DO Campbell Naranjo Work Phone: [facility] Start: 12-16-2021 End: 12-16-2021 Patient encounter procedure Leonard Dugan MD Work Phone: Urology Comment on above: Retention of urine ( Primary Dx); Flaccid bladder Start: 12-15-2021 Telephone encounter Leticia puentes APRN.GENERAL OFFICE ASSOCIATE Work Phone: Urology Comment on above: Patient Update Start: 12-11-2021 End: 12-11-2021 Emergency department patient visit DO Campbell Naranjo Work Phone: [facility] Start: 12-11-2021 Telephone encounter Leonard Dugan MD Work Phone: Urology Comment on above: Patient Update Start: 12-10-2021 End: 12-10-2021 Nursing evaluation of patient and report Nurse [facility] Emelia Work Phone: Urology Comment on above: Urinary tract infect ion without hematuria, site unspecified (Primary Dx); Feeling of incomplete bladder emptying; Benign prostatic hyperplasia with urinary retention Start: 12-09-2021 End: 12-09-2021 Nursing evaluation of patient and report [employer] Work Phone: Urology Comment on above: Urinary frequency (P rimary Dx); Urinary urgency; Urinary straining; Feeling of incomplete bladder emptying Start: 12-08-2021 Telephone encounter Leonard Dugan MD Work Phone: Urology Comment on above: Appointment (Resched ule catheter change) Start: 11-26-2021 End: 11-27-2021 Emergency department patient visit CAMPBELL NARANJO Facility:[facility] Start: 11-21-2021 Telephone encounter Leonard Dugan MD Work Phone: Urology Comment on above: [place] Cath Problem; Hematuria Start: 11-19-2021 End: 11-19-[address] ROBIN BAPTISTE Facility: Start: 11-12-2021 End: 11-12-2021 Patient encounter procedure Leonard Dugan MD Work Phone: Urology Comment on above: BPH with obstruction /lower urinary tract symptoms (Primary Dx); Benign prostatic hyperplasia with urinary retention Start: 11-10-2021 Chart abstracting Leonard Sanderson Work Phone: Urology Start: 11-07-2021 End: 11-07-2021 Emergency department patient visit RAN LEES JR Facility:[facility] Start: 10-23-2021 End: 10-24-[address] CAMPBELL NARANJO Facility:[facility] Start: 10-21-2021 End: 10-22-[address] CAMPBELL NARANJO Facility:[facility] Start: 10-20-2021 Adult health examination Campbell Naranjo Other [employer] Other Start: 07-17-2021 End: 07-18-[address] CAMPBELL NARANJO Facility:[facility] Start: 01-09-2020 End: 01-09-2020 Pre-procedure evaluation check Campbell Quentin Other [employer] Other Procedures Date Procedure Procedure Detail Performing Clinician Start: 10-14-2021 Depression screening Be juarez Quentin Other Start: 03-23-2016 Screening for malign ant neoplasm of colon Campbell Quentin Other Start: 01-30-2015 Screening for malign ant neoplasm of prostate Campbell Quentin Other Urine culture DO Campbell Sal ll Work Phone: Urine culture DO Campbell Huang ll Work Phone: Urine culture DO Campbell Huang ll Work Phone: Plan of Treatment Date Care Activity Detail Author Start: 12-28-2022 Urine microalbumin profile DTaP,Tdap,Td Vaccine (3 - Tdap) [facility] Start: 11-13-2022 Covid-19 Vaccine ( season) Covid-19 Vaccine () [facility] Start: 03-15-2022 Advance Directive Discussion Advance Directive Discussion [facility] Start: 03-15-2022 Depression Assessment Depression Ass essment [facility] Start: 01-08-2022 End: 03-10-2022 Bacteria identified in Urine by Culture URINE CULTURE Microbiology Routine Left hydrocele Chronic epididymitis Weak urinary stream BPH without obstruction/lower urinary tract symptoms Epididymitis Expected: 01/08/2022 (Approximate), Expires: 03/10/2022 [facility] Work Phone: Comment on above: Expected: 01/08/2022 (Approximate), Expires: 03/10/2022 Start: 01-08-2022 End: 03-10-2022 URINALYSIS, REFLEX MICROSCOPIC URINALYSIS, REFLEX MICROSCOPIC Lab Routine Left hydrocele Chronic epididymitis Weak urinary stream BPH without obstruction/lower urinary tract symptoms Epididymitis Expected: 01/08/2022 (Approximate), Expires: 03/10/2022 [facility] Work Phone: Comment on above: Expected: 01/08/2022 (Approximate), Expires: 03/10/2022 Start: 12-10-2021 End: 02-09-2022 Bacteria identified in Urine by Culture URINE CULTURE Microbiology Routine Urinary tract infection without hematuria, site unspecified Expected: 12/10/2021, Expires: 02/09/2022 [facility] Work Phone: Comment on above: Expected: 12/10/2021 , Expires: 02/09/2022 Start: 11-13-2021 Influenza vaccination INFLUENZA (#1) [facility] Start: 11-12-2021 URODYNAMICS URODYNAMICS Pr ocedures Routine 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 Expected: 11/12/2021 (Approximate) [facility] Work Phone: Comment on above: Expected: 11/12/2021 (Approximate) Start: 08-11-2021 COVID-19 VACCINE (5 - Booster for Pfizer series) COVID-19 VACCINE (5 - Booster for Pfizer series) [facility] Start: 03-15-2021 ADVANCE DIRECTIVE DISCUSSION ADVANCE DIRECTIVE DISCUSSION [facility] Start: 03-15-2021 DEPRESSION ASSESSMENT DEPRESSION ASS ESSMENT [facility] Start: 05-26-2012 3 comp foot exam completed DIABETIC FOOT EXAM [facility] Start: 1998 Hepatitis B Vaccine (1 of 3 - Risk 3-dose series) Hepatitis B Vaccine (1 of 3 - Risk 3-dose series) [facility] Start: 1998 RSV Vaccine (1 - 1-d ose 60+ series) RSV Vaccine (1 - 1-dose 60+ series) [facility] Start: 1988 SHINGRIX VACCINE (1 of 2) SHINGRIX VACCINE (1 of 2) [facility] Start: 1957 Urine microalbumin profile DTAP,TDAP,TD (1 - Tdap) [facility] Start: 1956 Hepatitis B surface antibody level LDL CHOLESTEROL [facility] Start: 1948 Hepatitis B screening URINE ALBUMIN:CREATININE RATIO [facility] Start: 1948 Hepatitis C antibody , confirmatory test DILATED RETINAL EXAM [facility] Start: 1944 PNEUMOCOCCAL: 65+ (1 - PCV) PNEUMOCOCCAL: 65+ (1 - PCV) [facility] Start: 1943 Hemoglobin A1c/Hemoglobin.total in Blood HBA1C [facility] Bacteria identified in Urine by Culture [facility] End: 02-02-2024 Bacteria identified in Urine by Culture URINE CULTURE Microbiology Routine Recurrent UTI 5 Occurrences starting 02/02/2023 until 02/02/2024 [facility] Work Phone: Comment on above: 5 Occurrences starti ng 02/02/2023 until 02/02/2024 Patient Education [facility] Work Phone: Patient referral [facility] Work Phone: End: 01-14-2024 Urinalysis complete panel - Urine URINALYSIS, WITH MICROSCOPIC Lab Routine Recurrent UTI 5 Occurrences starting 02/02/2023 until 01/14/2024 [facility] Work Phone: Comment on above: 5 Occurrences starti ng 02/02/2023 until 01/14/[address] [facility] Immunizations Immunization Date Immunization Notes Care Provider Jens eid 12-01-2022 influenza, high dose seasonal, preservative-free Campbell Naranjo Other [employer] Other 12-19-2021 influenza virus vaccine, split virus (incl. purified surface antigen) Campbell Naranjo Other [employer] Other 12-10-2020 influenza virus vaccine, split virus (incl. purified surface antigen) Campbell Naranjo Other [employer] Other 01-09-2020 influenza virus vaccine, split virus (incl. purified surface antigen) Campbell Naranjo Other [employer] Other 01-14-2018 influenza virus vaccine, split virus (incl. purified surface antigen) Campbell Naranjo Other [employer] Other 12-30-2016 influenza virus vaccine, split virus (incl. purified surface antigen) Campbell Naranjo Other [employer] Other 03-16-2016 influenza virus vaccine, split virus (incl. purified surface antigen) Campbell Naranjo Other [employer] Other 05-01-2015 pneumococcal conjuga te vaccine, 13 valent Campbell Naranjo Other [employer] Other 05-01-2015 pneumococcal Conjuga te, unspecified formulation; Translations: [Need for prophylactic vaccination against Streptococcus pneumoniae (pneumococcus)] Campbell Naranjo Other [employer] Other 12-28-2012 tetanus and diphther ia toxoids, adsorbed, preservative free, for adult use (5 Lf of tetanus toxoid and 2 Lf of diphtheria toxoid) Campbell Naranjo Other [employer] Other 01-28-2012 diphtheria, tetanus toxoids and acellular pertussis vaccine, unspecified formulation Campbell Naranjo Other [employer] Other 01-20-2012 pneumococcal polysaccharide vaccine, 23 valent Campbell Naranjo Other [employer] Other 05-18-2011 pneumococcal polysaccharide vaccine, 23 valent Campbell Naranjo Other [employer] Other Payers Date Payer Category Payer Self-pay 2016 Unknown [employer] SU[employer]MENT [id number] 2016-Present [phone] [id number] [place] [address] Indemnity [id number] 2003 Medicare MEDICARE MEDICAR E A AND B [id number] 2003-Present [phone] [place] [address] Medicare [id number] 1959 Medicare [id number] 1959 Medicare [id number] 1938 Unknown [id number] 3 1938 Unknown [id number] 3 1938 Unknown [id number] 3 1938 Unknown [id number] 3 1938 Unknown [id number] 3 1938 Unknown [id number] 3 1938 Unknown [id number] 3 1938 Unknown [id number] 3 Medicare Medicare Outpatient [id number] Unknown [facility] Insur [id number] Unknown [id number] 1 Social History Date Type Detail Facility Start: 10-24-2009 End: 12-16-2021 Tobacco smoking status NHIS Ex-smoker [facility] End: 03-15-1971 History of tobacco use Current smoker [facility] End: 03-15-1971 History of tobacco use Cigarette Smoker [facility] Start: 10-24-2009 End: 07-28-2022 Cigarettes smoked current (pack per day) - Reported 1.5 [facility] Start: 11-07-2021 End: 12-16-2021 Alcohol intake Current drinker of alcohol (finding) [facility] Start: 1940 Sex Assigned At Not on file C [facility] Start: 10-28-2021 End: 01-08-2022 Exposure to SARS-CoV-2 (event) Not sure [facility] Start: 12-11-2021 End: 12-17-2021 Tobacco smoking status INIS Never smoked tobacco (finding) [facility] Start: 1940 Sex Assigned At Male F [facility] Start: 12-16-2021 Tobacco use and exposure Smokeless tobacco non-user [facility] Start: 12-16-2021 End: 07-28-2022 Sex Assigned At [facility] [employer] Other National Score (1-10 0), lower number is lower risk 61 [facility] Medical Equipment Procedure Code Equipment Code Equipment Origin al Text Equipment Identifier Dates Start: 10-23-2021 Comment on above: TEST HOME BLOOD SUGA R ONCE A DAY USE TO TEST HOME BLO OD SUGAR ONCE A DAY Clinical Notes 11-10-2021 to 02-23-2023 Note Date & Type Note Facility 02-23-2023 Evaluation note Encounter Date Diagnosis Assessment Notes Feb, Right leg swelling (ICD-10 - M79.89) Avoid salt and elevate as much as possible. Need to r/o DVT Need to refer to Podiatry to assess foot abscess. Feb, Foot abscess, right (ICD-10 - L02.611) Continue Augmentin for now. Will require referral and debridement w/ Podiatry. Deep cultures may be helpful in guiding antibiotic coverage. Feb, Callus of foot (ICD-10 - L84) Will require Podiatric evaluation and treatment. Source of infection. Feb, Hammer toe of right foot (ICD-10 - M20.41) Resulting in friction and callus formation. Increases risk of infection Feb, Type 2 diabetes mellitus with hyperglycemia , without long-term current use of insulin (ICD-10 - E11.65) This patient is following a comprehensive diabetic treatment plan. They are checking their feet daily for calluses and nonhealing ulcers. They are being seen for yearly dilated eye examinations. Goals: SBP less than 130, LDL less than 100, FBS less than 140, A1C less than 7%. They are checking their BS daily, will which are reviewed at the office visit. Continue regular routine monitoring of A1C,] Microalbumin, Dilated eye exam and Foot exam Last A1C 6% Feb, Type 2 diabetes mellitus with peripheral neuropathy (ICD-10 - E11.42) Inspect feet daily for cuts and calluses.Recomme nd diabetic shoes and inserts to prevent callus formation.Fall precautions. [employer] Other 12-08-2023 Evaluation note* Encounter Date Diagnosis Assessment Notes Treatment Notes Treatment Clinical Notes Feb, Foot abscess, right (ICD-10 - L02.611) Keep clean and dry. Begin systemic antibiotics. Doubt soaking or use of topical antibiotics helpful. Refer to Podiatry Feb, Callus of foot (ICD-10 - L84) May need to debride, defer to Podiatry Feb, Hammer toe of right foot (ICD-10 - M20.41) Proper footwear most important to avoid callus formation. Feb, Type 2 diabetes mellitus with hyperglycemia, without long-term current use of insulin (ICD-10 - E11.65) Controlled w/ last A1C 6% This patient is following a comprehensive diabetic treatment plan. They are checking their feet daily for calluses and nonhealing ulcers. They are being seen for yearly dilated eye examinations. Goals: SBP less than 130, LDL less than 100, FBS less than 140, A1C less than 7%. They are checking their BS daily, will which are reviewed at the office visit. Continue regular routine monitoring of A1C,] Microalbumin, Dilated eye exam and Foot exam Feb, Type 2 diabetes mellitus with peripheral neuropathy (ICD-10 - E11.42) Fall precautions Inspect feet daily for new calluses, cuts and ulcers. Recommend routine foot care w/ Podiatry [employer] Other 11-21-2023 NoteHNO ID: [id number] Author: Leticia Milian APRN.[facility] Service: ? Author Type: Nurse Practitioner Type: Progress Notes Filed: 02/02/2023 2:13 PM Note Text: [place] [address] [facility] [address] HISTORY OF PRESENT ILLNESS: Seen 07/28/22 for BPH w obs/luts, UTI Denies gross hematutia Denies burning with urination C/O some urinary leakage during something staining during the day were padding and change once, pt stated that wear pads at night. Pt stated that is doing well with urination on flomax Enlarged L testicle. ROSAMARIA 11/10/21 - 10 gm, rubbery, no nodules AUA=13 QOL 2 PVR=52 ML cysto 11-12-21 = 2.5 cm NON OBSTRUCTIVE well resected prostate, Multiple small diverticulae UROFLOWMETRY November 12, 2021 Voided vol: 149.5 ml. Q max: 14.2 ml/sec. Q av.1 ml/sec. PVR: 346 - 200 = 146 ml. UDS 12-09-21 UROFLOWMETRY= Voided vol: 270.3 ml. Q max: 42.6 ml/sec. Q av.1 ml/sec. PVR: 15.0 ml. PRESSURE-FLOW VOIDING STUDY Voided: 306.0 ml voluntary P det Q max (Max Flow): 31.6 cm H2O Maximum Flow Rate: 16.5 ml/sec Average Flow Rate: 4.3 ml/sec PVR: 50 cc US Scrotum 01/01/22 - Bilateral epididymitis, small L hydrocele, chronic R epidymidis -Took Vibramycin for bladder infection Coming for BPH w obs/luts, UTI (new finding today 02/02/23) Denies gross hematuria Denies any wt lost or pelvic pain Pt stated that notice occassionally sensation daily Pt wear a padding underwear and change daily rto Drink about 3 glasses of water PVR=83 ML Culture 01/19/23=neg Location: BPH w obs/luts, UTI Pain Character: none Severity Scale: see AUA score, see lab Duration: BPH w obs/luts, UTI [employer] SYMPTOMS SCORE. 1. INCOMPLETE EMPTYING 0 2. FREQUENCY 1 3. INTERMITTENCY 2 4. URGENCY 2 5. WEAK STREAM 3 6. STRAINING 2 7. NOCTURIA 2 TOTAL SCORE 12 QOL 2 No past medical history on file. No past surgical history on file. No family history on file. Social History Tobacco Use Smoking status: Former Packs/day: 1.50 Years: 14.00 Additional pack years: 0.00 Total pack years: 21.00 Types: Cigarettes Quit date: 03/15/1971 Years since quittin.9 Smokeless tobacco: Never Substance Use Topics Alcohol use: Yes Comment: social MEDICATIONS: Current Outpatient Medications Medication Sig tamsulosin (FLOMAX) 0.4 mg Take 1 capsule by mouth once daily. Take one cap. daily aspirin 81 mg cap Aspirin Active 81 MG PO Daily December 11, 2021 12:00am lovastatin 40 mg tablet Lovastatin Active 40 MG PO Daily December 11, 2021 12:00am Glucosamine HCl 1,500 mg tab Take 1,500 mg by mouth. glipiZIDE 5 mg ORAL tablet Take 2.5 mg by mouth once daily. gabapentin(NEURONTIN 300 MG CAP) Take one(1) tablet two(2) times daily. lisinopril(PRINIVIL 10 MG TAB) Take one(1) tablet daily. doxycycline hyclate (VIBRAMYCIN) 100 mg capsule (Patient not taking: Reported on 01/20/2022) amLODIPine (NORVASC) 2.5 mg tablet Amlodipine Active 5 MG PO Daily December 11, 2021 12:00am (Patient not taking: Reported on 02/02/2023) TRUE METRIX GLUCOSE TEST STRIP test strip TEST HOME BLOOD SUGAR ONCE A DAY TRUEPLUS LANCETS 33 gauge USE TO TEST HOME BLOOD SUGAR ONCE A DAY No current facility-administered medications for this visit. ALLERGY: ALLERGIES Allergen Reactions Cipro [Ciprofloxaci* GI Upset Sulfa (Sulfonamide * Rash REVIEW OF SYSTEMS GENERAL: No fever, no fatigue and no weight loss. HEAD AND NECK: No headache, no blurred vision and no hearing loss. CARDIOVASCULAR: No chest pain, no palpitations and no leg edema. RESPIRATORY: No cough, wheezing and no shortness of breath. : As indicated in HPI. GI: No epigastric discomfort, no blood in stool and no changes in bowel habits. MUSCLOSKELETAL: No neck pain, no back anin and no joint pain. SKIN: No varicose veins, no rash and no abnormal itching. NEUROLOGICAL: No numbness, no seizures and no tremor. BLOOD: No ekimosis, no hematomas or no bleeding from the gums. PHYSICAL EXAM: VITALS: BP 146/70 Pulse 65 Wt 102.1 kg (225 lb) BMI 28.12 kg/m? GENERAL: Alert, oriented and in no distress. HEAD: Conjuctiva: no palor Sclera: no jaundice NECK: No enlarged thyroid, no palpable lymph nodes, and no engorged neck veins. CHEST: Bilateral symetrical, resp easy non labored ABDOMEN: Soft, non tender with no masses or organomegaly. No CVA tenderness. EXTREMITIES: No leg edema, No joint swelling GENITALIA: Deferred IMPRESSION: (Diagnostic Possibilities): -L epididymitis (resolved) -Weak Urinary Stream (improved with flomax) -BPH without obstruction on flomax -LIOR -DM UTI TURP about 3 yrs ago outside Urology PLAN: (Management Options): AUA, today Culture results given Standing order for urine place will get only if s (more content not included)... [facility]11-21-2023 Miscellaneous Notes* Addendum Note - Leticia Milian APRN.CNP - 02/02/2023 2:16 PM ESTAddended by: LETICIA MILIAN on: 02/02/2023 02:16 PM Modules accepted: Orders documented in this encounterUniversity [facility] History of Present illness Narrative* Leticia Milian, [employer]ER.GENERAL OFFICE ASSOCIATE - 02/02/2023 1:40 PM EST Norberto Mccoy [place] [address] [facility] [address] HISTORY OF PRESENT ILLNESS: Seen 07/28/22 for BPH w obs/luts, UTI Denies gross hematutia Denies burning with urination C/O some urinary leakage during something staining during the day were padding and change once, pt stated that wear pads at night. Pt stated that is doing well with urination on flomax Enlarged L testicle. ROSAMARIA 11/10/21 - 10 gm, rubbery, no nodules AUA=13 QOL 2 PVR=52 ML cysto 11-12-21 = 2.5 cm NON OBSTRUCTIVE well resected prostate, Multiple small diverticulae UROFLOWMETRY November 12, 2021 Voided vol: 149.5 ml. Q max: 14.2 ml/sec. Q av.1 ml/sec. PVR: 346 - 200 = 146 ml. UDS 12-09-21 UROFLOWMETRY= Voided vol: 270.3 ml. Q max: 42.6 ml/sec. Q av.1 ml/sec. PVR: 15.0 ml. PRESSURE-FLOW VOIDING STUDY Voided: 306.0 ml voluntary P det Q max (Max Flow): 31.6 cm H2O Maximum Flow Rate: 16.5 ml/sec Average Flow Rate: 4.3 ml/sec PVR: 50 cc US Scrotum 01/01/22 - Bilateral epididymitis, small L hydrocele, chronic R epidymidis -Took Vibramycin for bladder infection Coming for BPH w obs/luts, UTI (new finding today 02/02/23) Denies gross hematuria Denies any wt lost or pelvic pain Pt stated that notice occassionally sensation daily Pt wear a padding underwear and change daily rto Drink about 3 glasses of water PVR=83 ML Culture 01/19/23=neg Location: BPH w obs/luts, UTI Pain Character: none Severity Scale: see AUA score, see lab Duration: BPH w obs/luts, UTI [employer] SYMPTOMS SCORE. 1. INCOMPLETE EMPTYING 0 2. FREQUENCY 1 3. INTERMITTENCY 2 4. URGENCY 2 5. WEAK STREAM 3 6. STRAINING 2 7. NOCTURIA 2 TOTAL SCORE 12 QOL 2 No past medical history on file. No past surgical history on file. No family history on file. Social History Tobacco Use Smoking status: Former Packs/day: 1.50 Years: 14.00 Additional pack years: 0.00 Total pack years: 21.00 Types: Cigarettes Quit date: 03/15/1971 Years since quittin.9 Smokeless tobacco: Never Substance Use Topics Alcohol use: Yes Comment: social MEDICATIONS: Current Outpatient Medications Medication Sig tamsulosin (FLOMAX) 0.4 mg Take 1 capsule by mouth once daily. Take one cap. daily aspirin 81 mg cap Aspirin Active 81 MG PO Daily December 11, 2021 12:00am lovastatin 40 mg tablet Lovastatin Active 40 MG PO Daily December 11, 2021 12:00am Glucosamine HCl 1,500 mg tab Take 1,500 mg by mouth. glipiZIDE 5 mg ORAL tablet Take 2.5 mg by mouth once daily. gabapentin(NEURONTIN 300 MG CAP) Take one(1) tablet two(2) times daily. lisinopril(PRINIVIL 10 MG TAB) Take one(1) tablet daily. doxycycline hyclate (VIBRAMYCIN) 100 mg capsule (Patient not taking: Reported on 01/20/2022) amLODIPine (NORVASC) 2.5 mg tablet Amlodipine Active 5 MG PO Daily December 11, 2021 12:00am (Patient not taking: Reported on 02/02/2023) TRUE METRIX GLUCOSE TEST STRIP test strip TEST HOME BLOOD SUGAR ONCE A DAY TRUEPLUS LANCETS 33 gauge USE TO TEST HOME BLOOD SUGAR ONCE A DAY No current facility-administered medications for this visit. ALLERGY: ALLERGIES Allergen Reactions Cipro [Ciprofloxaci* GI Upset Sulfa (Sulfonamide * Rash REVIEW OF SYSTEMS GENERAL: No fever, no fatigue and no weight loss. HEAD & NECK: No headache, no blurred vision and no hearing loss. CARDIOVASCULAR: No chest pain, no palpitations and no leg edema. RESPIRATORY: No cough, wheezing and no shortness of breath. : As indicated in HPI. GI: No epigastric discomfort, no blood in stool and no changes in bowel habits. MUSCLOSKELETAL: No neck pain, no back anin and no joint pain. SKIN: No varicose veins, no rash and no abnormal itching. NEUROLOGICAL: No numbness, no seizures and no tremor. BLOOD: No ekimosis, no hematomas or no bleeding from the gums. PHYSICAL EXAM: VITALS: BP 146/70 Pulse 65 Wt 102.1 kg (225 lb) BMI 28.12 kg/m GENERAL: Alert, oriented and in no distress. HEAD: Conjuctiva: no palor Sclera: no jaundice NECK: No enlarged thyroid, no palpable lymph nodes, and no engorged neck veins. CHEST: Bilateral symetrical, resp easy non labored ABDOMEN: Soft, non tender with no masses or organomegaly. No CVA tenderness. EXTREMITIES: No leg edema, No joint swelling GENITALIA: Deferred IMPRESSION: (Diagnostic Possibilities): -L epididymitis (resolved) -Weak Urinary Stream (improved with flomax) -BPH without obstruction on flomax -LIOR -DM UTI TURP about 3 yrs ago outside Urology PLAN: (Management Options): AUA, today Culture results given Standing order for urine place will get only if symptomatic Cont Double voiding Cont flomax new script Rto 6 months for evaluation of BPH w obs/luts, AUA, PVR Medical Decision Making: Problems: Moderate: 2+ stable chronic illnesses Data: Unique test result(s) reviewed: 2 Risk: Moderate: Drug management Medical Decision Making Level: 4 - Moderate Leticia Milian APRN.GENERAL OFFICE ASSOCIATE documented in this encounterUniversity [facility]07-[facility]-2023 Evaluation note* Encounter Date Diagnosis Assessment Notes Treatment Notes Treatment Clinical Notes Sep, Acute bronchitis due to other specified organisms (ICD-10 - J20.8) Instructed to use Robitussin or Mucinex for cough, saline or Flonase NS for congestion, Tylenol for pain and fever. Sep, Primary hypertension (ICD-10 - I10) This patient is instructed to consume a healthy, low-fat, low-salt diet. They are also encouraged to continue exercise to achieve/maintain a normal BMI. Sep, Type 2 diabetes mellitus with hyperglycemia, without long-term current use of insulin (ICD-10 - E11.65) This patient is following a comprehensive diabetic treatment plan. They are checking their feet daily for calluses and nonhealing ulcers. They are being seen for yearly dilated eye examinations. Goals: SBP less than 130, LDL less than 100, FBS less than 140, AC and A1C less than 7%. They are checking their BS daily, will which are reviewed at the office visit. Continue regular routine monitoring of A1C,] Microalbumin, Dilated eye exam and Foot exam Normal for mild increase in BS w/ acute infection Requires no additional treatment [employer] Other 07-06-2023 Evaluation note* Encounter Date Diagnosis Assessment Notes Treatment Notes Treatment Clinical Notes Sep, Primary hypertension (ICD-10 - I10) This patient is instructed to consume a healthy, low-fat, low-salt diet. They are also encouraged to continue exercise to achieve/maintain a normal BMI. Flomax has lowered his BP and causes lightheadedness and weakness. Instructed to stop Amlodipine and monitor BP Sep, Type 2 diabetes mellitus with hyperglycemia, without long-term current use of insulin (ICD-10 - E11.65) This patient is following a comprehensive diabetic treatment plan. They are checking their feet daily for calluses and nonhealing ulcers. They are being seen for yearly dilated eye examinations. Goals: SBP less than 130, LDL less than 100, FBS less than 140, AC and A1C less than 7%. They are checking their BS daily, will which are reviewed at the office visit. Continue regular routine monitoring of A1C,] Microalbumin, Dilated eye exam and Foot exam Sep, Type 2 diabetes mellitus with diabetic polyneuropathy, without long-term current use of insulin (ICD-10 - E11.42) Inspect feet daily for cuts and calluses.Recommend diabetic shoes and inserts to prevent callus formation.Fall precautions. Sep, Hyperlipidemia type II (ICD-10 - E78.) Instructed on diet and exercise with continued statin therapy.Discussed the beneficial effects of lowering cholesterol in reducing the risk for cerebrovascular and cardiovascular disease. Sep, Feeling of incomplete bladder emptying (ICD-10 - R39.14) Symptoms improved w/ prescription of Flomax. Continue for now and f/u w/ Sep, Benign prostatic hyperplasia with lower urinary tract symptoms (ICD-10 - N40.1) Sep, Carotid bruit (ICD-10 - R09.89) US: < 50% B/L - 10/2021 Control BP Carotid US every 2-3 years Sep, Overweight (ICD-10 - E66.3) This patient has been instructed on a low-fat, high-fiber diet. They are instructed to reduce calories, portion sizes and snacks. It is recommended that they exercise for 30 minutes, 3-5 times weekly. [employer] Other 05-16-2023 NoteHNO ID: [id number] Author: Leticia Milian APRN.GENERAL OFFICE ASSOCIATE Service: ? Author Type: Nurse Practitioner Type: Progress Notes Filed: 07/30/2022 4:34 PM Note Text: Norberto Mccoy [place] [address] [facility] [address] HISTORY OF PRESENT ILLNESS: Seen 01/20/22 for BPH w obs/luts Denies gross hematutia Denies burning with urination Epidymidis resolve B/L pt is doing well will cont with present regiment PVR=52 ML Enlarged L testicle. ROSAMARIA 11/10/21 - 10 gm, rubbery, no nodules May need UDS based on cysto PVR 01/08/22 - 82 cc AUA= 13 QOL 5 cysto 11-12-21 = 2.5 cm NON OBSTRUCTIVE well resected prostate, Multiple small diverticulae UROFLOWMETRY November 12, 2021 Voided vol: 149.5 ml. Q max: 14.2 ml/sec. Q av.1 ml/sec. PVR: 346 - 200 = 146 ml. UDS 12-09-21 UROFLOWMETRY= Voided vol: 270.3 ml. Q max: 42.6 ml/sec. Q av.1 ml/sec. PVR: 15.0 ml. PRESSURE-FLOW VOIDING STUDY Voided: 306.0 ml voluntary P det Q max (Max Flow): 31.6 cm H2O Maximum Flow Rate: 16.5 ml/sec Average Flow Rate: 4.3 ml/sec PVR: 50 cc US Scrotum 01/01/22 - Bilateral epididymitis, small L hydrocele, chronic R epidymidis -Took Vibramycin for bladder infection Coming for BPH w obs/luts, UTI (new finding today 07/28/22) Denies gross hematutia Denies burning with urination C/O some urinary leakage during something staining during the day were padding and change once, pt stated that wear pads at night. Pt stated that is doing well with urination on flomax Culture 07/20/22=neg UA 07/20/22=leuk esterase 250, wbc 11-25 [employer] SYMPTOMS SCORE. 1. INCOMPLETE EMPTYING 1 2. FREQUENCY 1 3. INTERMITTENCY 4 4. URGENCY 1 5. WEAK STREAM 2 6. STRAINING 2 7. NOCTURIA 2 TOTAL SCORE 13 QOL 2 Location: BPH w obs/luts, UTI Pain Character: none Severity Scale: see AUA score, see lab Duration: BPH w obs/luts, UTI No past medical history on file. No past surgical history on file. No family history on file. Social History Tobacco Use Smoking status: Former Packs/day: 1.50 Years: 14.00 Pack years: 21.00 Types: Cigarettes Quit date: 03/15/1971 Years since quittin.4 Smokeless tobacco: Never Substance Use Topics Alcohol use: Yes Comment: social MEDICATIONS: Current Outpatient Medications Medication Sig tamsulosin (FLOMAX) 0.4 mg Take 1 capsule by mouth once daily. Take one cap. daily amLODIPine (NORVASC) 2.5 mg tablet Amlodipine Active 5 MG PO Daily December 11, 2021 12:00am aspirin 81 mg cap Aspirin Active 81 MG PO Daily December 11, 2021 12:00am lovastatin 40 mg tablet Lovastatin Active 40 MG PO Daily December 11, 2021 12:00am Glucosamine HCl 1,500 mg tab Take 1,500 mg by mouth. glipiZIDE 5 mg ORAL tablet Take 2.5 mg by mouth once daily. gabapentin(NEURONTIN 300 MG CAP) Take one(1) tablet two(2) times daily. lisinopril(PRINIVIL 10 MG TAB) Take one(1) tablet daily. doxycycline hyclate (VIBRAMYCIN) 100 mg capsule (Patient not taking: Reported on 01/20/2022) TRUE METRIX GLUCOSE TEST STRIP test strip TEST HOME BLOOD SUGAR ONCE A DAY TRUEPLUS LANCETS 33 gauge USE TO TEST HOME BLOOD SUGAR ONCE A DAY No current facility-administered medications for this visit. ALLERGY: ALLERGIES Allergen Reactions Cipro [Ciprofloxaci* GI Upset Sulfa (Sulfonamide * Rash REVIEW OF SYSTEMS GENERAL: No fever, no fatigue and no weight loss. HEAD AND NECK: No headache, no blurred vision and no hearing loss. CARDIOVASCULAR: No chest pain, no palpitations and no leg edema. RESPIRATORY: No cough, wheezing and no shortness of breath. : As indicated in HPI. GI: No epigastric discomfort, no blood in stool and no changes in bowel habits. MUSCLOSKELETAL: No neck pain, no back anin and no joint pain. SKIN: No varicose veins, no rash and no abnormal itching. NEUROLOGICAL: No numbness, no seizures and no tremor. BLOOD: No ekimosis, no hematomas or no bleeding from the gums. PHYSICAL EXAM: VITALS: BP 142/55 Pulse 68 Wt 100.7 kg (222 lb) BMI 27.75 kg/m? GENERAL: Alert, oriented and in no distress. HEAD: Conjuctiva: no palor Sclera: no jaundice NECK: No enlarged thyroid, no palpable lymph nodes, and no engorged neck veins. CHEST: Bilateral symetrical, resp easy non labored ABDOMEN: Soft, non tender with no masses or organomegaly. No CVA tenderness. EXTREMITIES: No leg edema, No joint swelling GENITALIA: Deferred IMPRESSION: (Diagnostic Possibilities): -L epididymitis (resolved) -Weak Urinary Stream (improved with flomax) -BPH without obstruction on flomax -LIOR -DM UTI PLAN: (Management Options): AUA, today UA, culture results given Standing order for urine place will get only if symptomatic Cont Double voiding Cont flomax Rto 6 months for evaluation of BPH w obs/luts, AUA, PVR Med (more content not included)...[facility]04-06-2023 Evaluation note* Encounter Date Diagnosis Assessment Notes Treatment Notes Treatment Clinical Notes Jun, Type 2 diabetes mellitus with hyperglycemia, without long-term current use of insulin (ICD-10 - E11.65) This patient is following a comprehensive diabetic treatment plan. They are checking their feet daily for calluses and nonhealing ulcers. They are being seen for yearly dilated eye examinations. Goals: SBP less than 130, LDL less than 100, FBS less than 140, AC and A1C less than 7%. They are checking their BS daily, will which are reviewed at the office visit. A1C: due Jun, Type 2 diabetes mellitus with diabetic polyneuropathy, without long-term current use of insulin (ICD-10 - E11.42) Inspect feet daily for cuts and calluses.Recommend diabetic shoes and inserts to prevent callus formation.Fall precautions. Jun, Left carotid stenosis (ICD-10 - I65.22) US: < 50% B/L stenosis, 63% left carotid bulb - 10/2021 Continue primary prevention measures w/ ASA and Statin. Instructed to go to ER for any acute neurologic changes - loss of vision, facial droop, slurred speech, unilateral weakness Yearsly carotid US Jun, Hypertension (ICD-10 - I10) This patient is instructed to consume a healthy, low-fat, low-salt diet. They are also encouraged to continue exercise to achieve/maintain a normal BMI. Jun, Hyperlipidemia type II (ICD-10 - E78.01) Diet and exercise with continued statin therapy. Jun, Benign prostatic hyperplasia with lower urinary tract symptoms (ICD-10 - N40.1) Continue Tamsulosin as directed. Continuesw/ some spontaneous leaking, s/p TURP Denies urinary retention, dribbling Nocturia x 2 f/u Jun, Epididymitis (ICD-10 - N45.1) Resolved w/ antibiotics and treatment of urinary retention [employer] Other 03-21-2023 NotePROCEDURE: XR FOOT LT MIN 3 VIEWS, XR ANKLE LT MIN 3 V COMPARISON: 01/05/2020 HISTORY: Pain in left foot FINDINGS: BONES:Stable fusion of the first interphalangeal joint. 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 No acute fracture or dislocation. Moderate diffuse degenerative changes with joint space narrowing and marginal osteophyte formation. Enthesopathic spurring of the calcaneus SOFT TISSUES:Vascular calcifications EFFUSION:None visible. OTHER: Negative. IMPRESSION: Stable postsurgical and degenerative changes Electronically authenticated by: SAMY TORRES Date: 2022-06-02 15:48[facility]03-21-2023 NotePROCEDURE: XR FOOT LT MIN 3 VIEWS, XR ANKLE LT MIN 3 V COMPARISON: 01/05/2020 HISTORY: Pain in left foot FINDINGS: BONES:Stable fusion of the first interphalangeal joint. 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 No acute fracture or dislocation. Moderate diffuse degenerative changes with joint space narrowing and marginal osteophyte formation. Enthesopathic spurring of the calcaneus SOFT TISSUES:Vascular calcifications EFFUSION:None visible. OTHER: Negative. IMPRESSION: Stable postsurgical and degenerative changes Electronically authenticated by: SAMY TORRES Date: 2022-06-02 15:48[facility]01-25-2023 Evaluation note* Encounter Date Diagnosis Assessment Notes Treatment Notes Treatment Clinical Notes Mar, Type 2 diabetes mellitus with peripheral neuropathy (ICD-10 - E11.42) Inspect feet daily for cuts and calluses. Prescription for diabetic shoes and inserts sent to Podiatry. Mar, Type 2 diabetes mellitus with hyperglycemia, without long-term current use of insulin (ICD-10 - E11.65) This patient is following a comprehensive diabetic treatment plan. They are checking their feet daily for calluses and nonhealing ulcers. They are being seen for yearly dilated eye examinations. Goals: SBP less than 130, LDL less than 100, FBS less than 140, AC and A1C less than 7%. They are checking their BS daily, will which are reviewed at the office visit. Mar, Benign prostatic hyperplasia with lower urinary tract symptoms (ICD-10 - N40.1) Continue Flomax. Mar, Hesitancy of micturition (ICD-10 - R39.11) Mar, Actinic keratosis (ICD-10 - L57.0) Patient's lesion was treated w/ cryotherapy w/o complications [employer] Other 01-06-2023 Evaluation note* Encounter Date Diagnosis Assessment Notes Treatment Notes Treatment Clinical Notes Mar, Hypertension (ICD-10 - I10) This patient is instructed to consume a healthy, low-fat, low-salt diet. They are also encouraged to continue exercise to achieve/maintain a normal BMI. Mar, Type 2 diabetes mellitus with hyperglycemia, without long-term current use of insulin (ICD-10 - E11.65) This patient is following a comprehensive diabetic treatment plan. They are checking their feet daily for calluses and nonhealing ulcers. They are being seen for yearly dilated eye examinations. Goals: SBP less than 130, LDL less than 100, FBS less than 140, AC and A1C less than 7%. They are checking their BS daily, will which are reviewed at the office visit. Instructed to hold BONILLA and monitor FBS qod. 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 They are also educated on the associated risks of NSAIDs and PPI use with kidney disease. They were instructed on adequate fluid balance and to avoid dehydration. Mar, Type 2 diabetes mellitus with peripheral neuropathy (ICD-10 - E11.42) Inspect feet daily for calluses and ulcerations. Recommend diabetic shoes and inserts to decrease development of calluses and ulcerations Mar, Hyperlipidemia type II (ICD-10 - E78.01) Diet and exercise with continued statin therapy. Mar, Acute pain of left knee (ICD-10 - M25.562) Quad exercises, ice, heat and Voltaren Gel. Mar, Primary osteoarthritis of left knee (ICD-10 - M17.12) Mar, Benign prostatic hyperplasia with lower urinary tract symptoms (ICD-10 - N40.1) Continue Flomax and call office w/ any change in urinary habits. Mar, Hesitancy of micturition (ICD-10 - R39.11) [employer] Other 10-27-2022 History of Present illness Narrative* Zuleika Hackett - 01/08/2022 8:20 AM EDT Norberto Washington [address] [address] Mr. Washington presents with chief complaints of: Enlarged L testicle. ED 11/07/21: PVR 179 cc, refused a catheter, scheduled to undergo a cystoscopy in [place] but was cancelled due to his urologist was sick Pt underwent TURP x2 within a week AUA= 3-5 wach ROSAMARIA 11/10/21 - 10 gm, rubbery, no nodules US 11/07/21:= mildly complex renal cysts UA and culture 11-07-21= -ve May need UDS based on cysto cysto 11-12-21 = 2.5 cm NON OBSTRUCTIVE well resected prostate, Multiple small diverticulae UROFLOWMETRY November 12, 2021 Voided vol: 149.5 ml. Q max: 14.2 ml/sec. Q av.1 ml/sec. PVR: 346 - 200 = 146 ml. UDS 12-09-21 UROFLOWMETRY= Voided vol: 270.3 ml. Q max: 42.6 ml/sec. Q av.1 ml/sec. PVR: 15.0 ml. PRESSURE-FLOW VOIDING STUDY Voided: 306.0 ml voluntary P det Q max (Max Flow): 31.6 cm H2O Maximum Flow Rate: 16.5 ml/sec Average Flow Rate: 4.3 ml/sec PVR: 50 cc HISTORY OF PRESENT ILLNESS: Location: testicle left Pain Character: none Severity Scale: see lab, see X-rays Duration: several weeks Timing: N/A Modifying Factors: None Associated signs and symptoms: epididymitis No past medical history on file. No past surgical history on file. No family history on file. Social History Tobacco Use Smoking status: Former Packs/day: 1.50 Years: 14.00 Pack years: 21.00 Types: Cigarettes Quit date: 03/15/1971 Years since quittin.8 Smokeless tobacco: Never Substance Use Topics Alcohol use: Yes Comment: social MEDICATIONS: Current Outpatient Medications Medication Sig amLODIPine (NORVASC) 2.5 mg tablet Amlodipine Active 5 MG PO Daily December 11, 2021 12:00am aspirin 81 mg cap Aspirin Active 81 MG PO Daily December 11, 2021 12:00am TRUE METRIX GLUCOSE TEST STRIP test strip TEST HOME BLOOD SUGAR ONCE A DAY TRUEPLUS LANCETS 33 gauge USE TO TEST HOME BLOOD SUGAR ONCE A DAY lovastatin 40 mg tablet Lovastatin Active 40 MG PO Daily December 11, 2021 12:00am tamsulosin (FLOMAX) 0.4 mg Take 1 capsule by mouth once daily. Take one cap. daily Glucosamine HCl 1,500 mg tab Take 1,500 mg by mouth. Ammonium Lactate 12 % TOPICAL cream Use twice daily on feet glipiZIDE 5 mg ORAL tablet Take 2.5 mg by mouth once daily. gabapentin(NEURONTIN 300 MG CAP) Take one(1) tablet two(2) times daily. lisinopril(PRINIVIL 10 MG TAB) Take one(1) tablet daily. Current Facility-Administered Medications Medication Dose Route Frequency [START ON 01/23/2022] cephALEXin 500 mg cap(s) (KEFLEX) 500 mg ORAL ONCE ALLERGY: ALLERGIES Allergen Reactions Cipro [Ciprofloxaci* GI Upset Sulfa (Sulfonamide * Rash REVIEW OF SYSTEMS GENERAL: No fever, no fatigue and no weight loss. HEAD & NECK: No headache, no blurred vision and no hearing loss. CARDIOVASCULAR: No chest pain, no palpitations and no leg edema. RESPIRATORY: No cough, wheezing and no shortness of breath. : As indicated in HPI. GI: No epigastric discomfort, no blood in stool and no changes in bowel habits. MUSCLOSKELETAL: No neck pain, no back anin and no joint pain. SKIN: No varicose veins, no rash and no abnormal itching. NEUROLOGICAL: No numbness, no seizures and no tremor. BLOOD: No ekimosis, no hematomas or no bleeding from the gums. PHYSICAL EXAM: VITALS: There were no vitals taken for this visit. GENERAL: Alert, oriented and in no distress. ABDOMEN: Soft, non tender with no masses or organomegaly. No CVA tenderness. HERNIA: Negative EXTREMITIES: No leg edema, No joint swelling GENITALIA: Penis:no lesions, masses, or deformities. Urethral meatus: normal size, no discharge Scrotum: no lesions, cysts, rashes. Testes : Normal Epididymes: Swollen, Left, tender - indicating chronic epididymitis Hydroceles: None Spermatoceles: None Varicoceles: None [facility] SYMPTOMS SCORE. Date 01/08/2022 1. INCOMPLETE EMPTYING 0 2. FREQUENCY 0 3. INTERMITTENCY 3 4. URGENCY 0 5. WEAK STREAM 4 6. STRAINING 4 7. NOCTURIA 2 TOTAL SCORE 13 QOL 5 PVR January 08, 2022 82 cc IMPRESSION: (Diagnostic Possibilities): US Scrotum 01/01/22 - Bilateral epididymitis, small L hydrocele, chronic R epidymidis -Took Vibramycin for bladder infection -L epididymis L, hard, and tender indication chronic epidiymis -Weak Urinary Stream -BPH without obstruction -PVR 01/08/22 - 82 cc -DM PLAN: (Management Options): -Double void while urinating -If infection reoccurs, consider treating acute infection or inserting hamilton catheter -Weak bladder pressure is likely due to neurogenic bladder from DM -Appointment with GIANCARLO Elizondo 01/20/22, as scheduled -UA and culture prior OV with GIANCARLO Elizondo By signing my name below, I, Zuleika Hackett, attest that this documentation has been prepared under the direction and in the presence of Dr. Dugan. Munir Boothe Provider Attestation: I, Leonard Dugan M.D., personally performed the services described in this documentation. All medicalrecord entries made by the scribe were at my direction and in my presence. I have reviewed the chart and discharge instructions (if applicable) and agree that the record reflects my personal performance and is accurate and complete. Leonard Dugan M.D. documented in this encounterUniversity Hospitals Ely[facility]10-05-2022 Hospital Discharge instructions Additional Instructions Continue taking Flomax as prescribed Avoid drinking any fluids several hours before bed Call your urologist tomorrow for a follow-up appointment Return if you are unable to urinate, develop blood in your urine, abdominal pain, [facility]vers[facility] Phone: [phone]) 835-716710-04-2022 History of Present illness Narrative* Leonard Dugan MD - 12/16/2021 2:51 PM EDT Norberto Washington [address] [facility] [address] HISTORY OF PRESENT ILLNESS: ED 11/07/21: PVR 179 cc, refused a catheter, scheduled to undergo a cystoscopy in [place] but was cancelled due to his urologist was sick Pt underwent TURP x2 within a week AUA= 3-5 wach ROSAMARIA 11/10/21 - 10 gm, rubbery, no nodules US 11/07/21:= mildly complex renal cysts UA and culture 11-07-21= -ve May need UDS based on cysto cysto 11-12-21 = 2.5 cm NON OBSTRUCTIVE well resected prostate, Multiple small diverticulae UROFLOWMETRY November 12, 2021 Voided vol: 149.5 ml. Q max: 14.2 ml/sec. Q av.1 ml/sec. PVR: 346 - 200 = 146 ml. UDS 12-09-21 UROFLOWMETRY= Voided vol: 270.3 ml. Q max: 42.6 ml/sec. Q av.1 ml/sec. PVR: 15.0 ml. PRESSURE-FLOW VOIDING STUDY Voided: 306.0 ml voluntary P det Q max (Max Flow): 31.6 cm H2O Maximum Flow Rate: 16.5 ml/sec Average Flow Rate: 4.3 ml/sec PVR: 50 cc Discussed incomplete retention not due to prostate. Discussed triple voiding if he declined catheterization. Otherwise, intermittent catheterization. Agreed indwelling catheter 18 trinidadian. Flomax will not work, no prostate tissue to treat but can relax bladder neck and may improve the stream and decrease residual urine Location: bladder Pain Character: none Severity Scale: see UDS Duration: 1 weeks Timing: N/A Modifying Factors: None Associated signs and symptoms: none No past medical history on file. No past surgical history on file. No family history on file. Social History Tobacco Use Smoking status: Former Packs/day: 1.50 Years: 14.00 Pack years: 21.00 Types: Cigarettes Quit date: 03/15/1971 Years since quittin.7 Smokeless tobacco: Never Substance Use Topics Alcohol use: Yes Comment: social MEDICATIONS: Current Outpatient Medications Medication Sig amLODIPine (NORVASC) 2.5 mg tablet Amlodipine Active 5 MG PO Daily December 11, 2021 12:00am aspirin 81 mg cap Aspirin Active 81 MG PO Daily December 11, 2021 12:00am TRUE METRIX GLUCOSE TEST STRIP test strip TEST HOME BLOOD SUGAR ONCE A DAY TRUEPLUS LANCETS 33 gauge USE TO TEST HOME BLOOD SUGAR ONCE A DAY lovastatin 40 mg tablet Lovastatin Active 40 MG PO Daily December 11, 2021 12:00am trimethoprim (PROLOPRIM) 100 mg tablet Take 1 tablet by mouth twice daily for 5 days. Glucosamine HCl 1,500 mg tab Take 1,500 mg by mouth. glipiZIDE 5 mg ORAL tablet Take 2.5 mg by mouth once daily. gabapentin(NEURONTIN 300 MG CAP) Take one(1) tablet two(2) times daily. lisinopril(PRINIVIL 10 MG TAB) Take one(1) tablet daily. Ammonium Lactate 12 % TOPICAL cream Use twice daily on feet Current Facility-Administered Medications Medication Dose Route Frequency [START ON 01/23/2022] cephALEXin 500 mg cap(s) (KEFLEX) 500 mg ORAL ONCE ALLERGY: ALLERGIES Allergen Reactions Cipro [Ciprofloxaci* GI Upset Sulfa (Sulfonamide * Rash REVIEW OF SYSTEMS GENERAL: No fever, no fatigue and no weight loss. HEAD & NECK: No headache, no blurred vision and no hearing loss. CARDIOVASCULAR: No chest pain, no palpitations and no leg edema. RESPIRATORY: No cough, wheezing and no shortness of breath. : As indicated in HPI. GI: No epigastric discomfort, no blood in stool and no changes in bowel habits. MUSCLOSKELETAL: No neck pain, no back anin and no joint pain. SKIN: No varicose veins, no rash and no abnormal itching. NEUROLOGICAL: No numbness, no seizures and no tremor. BLOOD: No ekimosis, no hematomas or no bleeding from the gums. PHYSICAL EXAM: VITALS: BP 141/62 Pulse 69 Resp 16 GENERAL: Alert, oriented and in no distress. ABDOMEN: Soft, non tender with no masses or organomegaly. No CVA tenderness. HERNIA: Negative EXTREMITIES: No leg edema, No joint swelling GENITALIA: Deferred TOV= voided all 250 cc pvr = 0 cc IMPRESSION: (Diagnostic Possibilities): Retention of urine Flaccid bladder well resected prostate (had 2 TURP) in [place] PLAN: (Management Options): -Start Flomax one cap daily Flomax will not work, no prostate tissue to treat but can relax bladder neck and may improve the stream and decrease residual urine -Double void all times -office visit w NURSE LAISHA in 1 month to come with full bladder to do uroflow and ovr check Medical Decision Making: Problems: Moderate: 1+ chronic illnesses with change Data: Unique source(s) for external note(s) reviewed: 1 Unique test result(s) reviewed: 1 Risk: Moderate: Drug management Medical Decision Making Level: 4 - Moderate Leonard Dugan MD documented in this encounterUniversity Hospitals Ely[facility]10-03-2022 Miscellaneous Notes* Telephone Encounter - Valente Bell LPN - 12/15/2021 3:58 PM EDT Called and spoke to patient regarding message below. Patient states understanding to information provided. No further action required at this time. * Telephone Encounter - Leticia Milian APRN.GENERAL OFFICE ASSOCIATE - 12/15/2021 10:13 AM EDT Please call and confirm that pt received [employer] message to start new script sent for antibiotic. Thanks Leticia MONDRAGON documented in this encounterUniversity Hospitals Elyria [facility] Center09-29-2022 Miscellaneous Notes* Telephone Encounter - Valente Bell LPN - 12/11/2021 4:09 PM EDT Called and spoke to patient regarding message below. Patient states that since last phone call he attempted to have another bowel movement. When he was done he felt a lot of pressure/discomfort. Bag has small amount of urine, urine also leaking around catheter from penis. Patient was given the option to come into the office now to have the catheter looked at and repositioned or go to the ER closer to him. Patient decided that he would go to ER that was much closer. Advised the patient to keep us up to date on the situation. Also advised the patient to try to avoid bearing down to have a bowel movement. * Telephone Encounter - Dimple Tatum RN - 12/11/2021 3:43 PM EDT -Pt Verified by Name and Date of -pt calling to report gets 'urge to urinate' and then he has urine coming around catheter and had to pee in a cup shortly before time of call. -pt states feels uncomfortable. -pt states this is new from when last talked to [facility] nurse. -please advise * Telephone Encounter - Valente Bell LPN - 12/11/2021 1:08 PM EDT Called and spoke to patient regarding message below. Patient stated that he was bearing down when trying to have bowel movement. The catheter is draining fine and he is having no issues. I advised the patient to try not and bear down with bowel movements and to call the office if he notices at anytime that the catheter is not draining. Patient stated understanding. No further action is required at this time. * Telephone Encounter - Sarah Pelaez RN - 12/11/2021 12:13 PM EDT Pt. States when he sat down to have a bm today, he noted that urine came out of the end of his penis. He is very concerned that something is wrong with his hamilton. It seems to be draining normally now. documented in this encounterUniversity Hospitals Ely[facility] Center09-28-2022 Nurse Note* Stephanie Kaur RN - 12/10/2021 11:53 AM EDT [facility] Patient identified by name and birthdate. Doesn't feel bladder is full at this time. Has pain to end of penis at times. States alternating weak stream and dribbling. States he doesn't feel double voiding helps. Drank 4 cups of coffee already this morning, drinks at least 32 oz a day of water. Patient voided shortly before entering exam room. PVR per in office bladder ultrasound was 64ml. Discussed in office with Leticia Milian. Do PVR per straight cath. Send for urine culture. If PVR > 100, leave catheter in place. Start abx prescribed by Dr. Dugan this morning. PVR per straight cath 120ml. The new 18 F coude hamilton was inserted using sterile technique. 120 cc urine obtained and attached to leg bag. Night drainage bag given along with instruction sheet. The patient tolerated the procedure well. Plan:Return in 1 week for f/u as scheduled with Dr. Dugan. Patient aware to start Keflex as ordered, may change based on culture results. Carried out orders of Leticia Milian, under her supervision. Stephanie Kaur RN Urinary tract infection without hematuria, site unspecified (primary encounter diagnosis) Feeling of incomplete bladder emptying Benign prostatic hyperplasia with urinary retention documented in this encounterUniversity Hospitals Ely[facility] Center09-27-2022 History of Present illness Narrative* Leonard Dugan MD - 12/09/2021 5:05 PM EDT [facility] PHYSICIAN INTERPRETATION: Urodynamics Interpretation: A 6 Fr catheter was placed and secured to the patient's penis with tape and a separate rectal catheter was placed for intra-abdominal pressure measurements. The study was then run to yield results asfollows: Uroflow: Continuous and large voided volume PVR: Low CMG: The FS and FD: normal range Bladder compliance: normal Detrusor overactivity: terminal Total tolerated volume was 305 ml Pressure Flow phase: Pdet max with flow was normal Abdominal strain:No PRESSURE-FLOW VOIDING STUDY: Voided: 225 ml Maximum flow rate - 19 ml/sec Average flow rate - 6.6 ml/sec Detr.press. @ Max Flow 51.3 cm/H2O EMG: No DESD or abnormal patterns noted Impression: Normal pressure at max flow with with good stream and upper normap residual volume may indicated mold MEDEIROS with impaired bladder contractility Leonard Dugan MD documented in this encounterUniversity Hospitals Ely[facility] Center09-27-2022 Nurse Note* Stephanie Kaur RN - 12/09/2021 3:57 PM EDT [facility] [facility] URODYNAMIC PROCEDURE NOTE ID Verified by: Stephanie Kaur RN with name and birthdate. Procedure instructions reviewed with patient prior to procedure: Yes Currently experiencing pain: No Does the patient have any concerns about safety in the home/falls?: Not at risk for falls Has the patient had 2 falls in the last year or 1 fall with injury or currently using assistive device (walker, cane, wheelchair, crutches): No What interventions were put in place to prevent falls during this visit: No skid socks used Has patient had any history of Mitral Valve prolapse: No MEDS:NONE Has patient had any history of prosthetics: No MEDS: NONE Latex allergy: No Iodine allergy: No B/O UA: NO Patient came to appointment with indwelling 16F coude. Bladder filled with 250 ml sterile NS. Hamilton catheter removed. Patient able to complete Uroflow. Successful voiding trial. UROFLOWMETRY Voided vol: 270.3 ml. Flow time: 20.6 sec. Q max: 42.6 ml/sec. Q av.1 ml/sec. PVR: 15.0 ml. CYSTOMETROGRAM Subtracted:Yes Video: No EMG: Yes First Sensation: 183.2 ml Strong desire: 276.5 ml Max. capacity: 351.5 ml Maximum filling detrusor pressure 18 cm of water Detrusor overactivity associated with urge: Yes Detrusor overactivity associated with leakage: No Was patient assessed for VLPP / UPP No PRESSURE-FLOW VOIDING STUDY Did patient void with catheters in place Yes Voided: 306.0 ml voluntary Max Voiding Detrusor Pressure 75.8 cm H2O P det Q max (Max Flow): 31.6 cm H2O Maximum Flow Rate: 16.5 ml/sec Average Flow Rate: 4.3 ml/sec Comments: Follow up with Dr. Dugan in office as scheduled. STUDY DETAILS: Was a uroflow done at some point during the study: Yes Was a cystometrogram performed: Yes Was a UPP/VLPP done: No Was an EMG done: Yes Was an intraabdominal pressure recorded with urethral catheter in: Yes Where were pressure catheters placed: Bladder and Rectum Was contrast instilled for radiologic evaluation: No Please use Urodynamic Graph. Pt given verbal home going instructions. Pt states an understanding of instructions given. Patient left without hamilton catheter. He is aware to go to ED if he goes into retention, stops urinating, only dribbling. Will check in with patient tomorrow. Carried out orders of Dr. Dugan, under the supervision of Leticia Milian. Stephanie Kaur RN Urinary frequency (primary encounter diagnosis) Urinary urgency Urinary straining Feeling of incomplete bladder emptying documented in this encounterUniversity [facility]-26-2022 Miscellaneous Notes* Telephone Encounter - Stephanie Kaur RN - 12/08/2021 4:11 PM EDT LM for patient to reschedule catheter change for tomorrow. Last changed 11/26/21 in ED. Will be due for change on 12/23/21. Stephanie Kaur R.N. documented in this encounterUniversity Hospitals [facility]09-12-2022 Miscellaneous Notes* Telephone Encounter - Sonia Oliva LPN - 11/24/2021 1:39 PM EDT Called and spoke to patient spouse in regards to message below. Patient was identified via name and . She stated that the patient does not have hematuria today. Instructed her to instruct the patient to be sure that he is drinking plenty of fluids and decreaseactivity. She stated understanding and stated that she will relay the message to the patient. * Telephone Encounter - Leonard Dugan MD - 11/24/2021 1:18 PM EDT Please call patient to schedule nurse visit if having catheter drainage problem or gross hematuria. need to drink fluids and decrease activity if having hematuria Leonard Dugan MD * Telephone Encounter - Amaya Donnelly RN - 11/21/2021 9:01 AM EDT Pt is identified by name and birthdate: Yes Patient calls to report Hematuria in Hamilton x 3 days He has denies pulling on hamilton during night He has been busy with his spouse at [facility] having to care for her needs and hadn't called earlier when it first started on Wednesday. He was hoping it would clear up but it has not, urine is between [place] tint & Brown and he does see small clots. Patient does have pain at the end of his Penis slight swelling noted (he has been applying Neosporin) Denies difficulty with urine draining into Hamilton bag, he does not have back pain Please advise documented in this encounterUniversity Hospitals [facility]08-31-2022 Nurse Note* Stephanie Kaur RN - 11/12/2021 11:24 AM EDT PRE PROCEDURE NURSE ASSESSMENT Patient ID with two(2)identifiers verified by: Stephanie Kaur RN Procedure Indication: Cystoscopy November 12, 2021, Time In: 1100 Latex Allergy: No Allergies reviewed and updated. Yes Pre-Procedure Vital Signs: BP 162/73 Pulse (!) 56 Wt 96.2 kg (212 lb) BMI 26.50 kg/m Heart valve replacement: No Joint replacement: No Back Office UA otained: not applicable Pre-Procedure Antibiotics: Keflex 500 mg orally given during visit @ 1122 , by Stephanie Kaur R.NArmando Current pain intensity is 0 on a 0-10 pain scale. Patient Prep: Betadine Scrub to perineum and placement of Sterile Drape. COMPLETED Anesthetic Given: 11 cc 2% Lidocaine jelly Stephanie Kaur RN UNIVERSAL PROTOCOL / SAFETY CHECKLIST Procedure to be performed: Cystoscopy Sign in Communication: Completed Time Out: Team Confirms the Correct Patient, Correct Procedure, Correct Site and Site Marking, Correct Position (if applicable) Sign Out Discussion: Completed Stephanie Kaur RN POST PROCEDURE NURSE ASSESSMENT Procedure/Indication: Cystoscopy Instruction sheet given and reviewed and patient verbalizes understanding: yes Post-Procedure Vital Signs: Post Procedure Antibiotic: n/a Current pain intensity is 0 on a 0-10 pain scale. Stephanie Kaur RN AMBULATORY PATIENT EDUCATION THE FOLLOWING WAS EVALUATED Motivation To Learn: Eager Family/Significant Other Support: None - Unavailable/disinterested Cognitive Ability: Alert/Oriented Method of Instruction: Individual instruction The Following Influencing Factors Were Barriers To This Education Session: None The Following Physical Limitations Were Barriers To This Education Session: None Instruction Provided To: Patient Development Specialist Present: not applicable Discipline: Nursing Learning Topic: SURVIVAL SKILLS: Symptom Management Patient Evaluation: Verbalizes understanding: Yes Supplemental Material Given: None Instructed By Stephanie Kaur RN In Department Urology . UNIVERSAL PROTOCOL / SAFETY CHECKLIST Procedure to be Performed: Cystoscopy Sign In: A Moment of CARE was completed. Personnel directly involved with the procedure wore the appropriate PPE (Personal Protective Equipment). No special equipment needed. Patient/Surrogate Stated/Verified: PATIENT VERIFIED(optional for EMERGENT procedures): Patient name, Date of , Relevant allergies, and The intended procedure Time Out Communication: Intended patient and procedure match the source documents. Consent documented and matches the intended procedure. Relevant labs, photos, and/or imaging studies have been reviewed. Correct side/site marked and visible. Medications required for procedure verified. Fire risk assessed and interventions discussed. No implant(s) inserted. Sign Out: SIGN OUT (optional for EMERGENT procedures): No specimen collected. All instruments, equipment, possible retained foreign bodies accounted for. Post-procedure follow-up management communicated and Plan of Care Visit completed when applicable. Carried out orders of Dr. Dugan, under his supervision. Stephanie Kaur RN documented in this encounterUniversity Hospitals [facility]ly[facility]08-31-2022 Procedure note* Leonard Dugan MD - 11/12/2021 11:00 AM EDTProcedure(s): CYSTOSCOPY Pre-Procedure Diagnose(s): BPH with obstruction/lower urinary tract symptoms Post-Procedure Diagnose(s): BPH with obstruction/lower urinary tract symptoms PROCEDURE: CYSTOSCOPY INDICATIONS: ED 11/07/21: PVR 179 cc, refused a catheter, scheduled to undergo a cystoscopy in [place] but was cancelled due to his urologist was sick Pt underwent TURP x2 within a week AUA= 3-5 wach ROSAMARIA 11/10/21 - 10 gm, rubbery, no nodules US 11/07/21:= mildly complex renal cysts UA and culture 11-07-21= -ve May need UDS based on cysto PREOPERATIVE/PROCEDURAL VERIFICATION: Patient verified by name: Yes History and physical exam reviewed and is unchanged Informed consent discussion:yes Procedure to be performed: CYSTOSCOPY Site of the procedure confirmed: Yes Site: BLADDER PROCEDURAL TIME OUT: Time out verification:Yes ANESTHESIA: 2% LOCAL XYLOCAIN JELLY. PATIENT WAS PLACED IN: Supine POSITION. GENETALIA PREPED WITH BETADINE AND DRAPED IN STERILE MANNER. CYSTOSCOPY WAS PERFORMED WITH: Flexible FIBEROPTIC CYSTOSCOPE FINDINGS: URETHRAL MEATUS: NORMAL ANTERIOR URETHRA: NORMAL URETHRAL DILIATION: No POSTERIOR URETHRA: OBSTRUCTED PROSTATE: Length 2.5 cm LATERAL LOBES: NON OBSTRUCTIVE MEDIAN LOBE: NORMAL BLADDER: INFLAMMED: No TRABECULATIONS: severe DIVERTICULAE: multiple small STONES: No NORMAL URETERIC ORFICES: Yes NORMAL TRIGONE: Yes TUMOR: No UROFLOWMETRY November 12, 2021 Voided vol: 149.5 ml. Q max: 14.2 ml/sec. Q av.1 ml/sec. PVR: 346 - 200 = 146 ml. COMPLICATIONS: No DIAGNOSIS: 2/5 cm well resected prostate Severe trabeculations, thickened bladder wall muscle Multiple small diverticulae PLAN: DISCUSSED FINDINGS WITH PATIENT Flomax will not work, no prostate tissue to treat Macrodentin x1 daily for 10 days Reschedule UDS downtown with office visit 1 week following. Discussed incomplete retention not due to prostate. Discussed triple voiding if he declined catheterization. Otherwise, intermittent catheterization. Agreed indwelling catheter 18 trinidadian. By signing my name below, I, Zuleika Hackett, attest that this documentation has been prepared under the direction and in the presence of Dr. Dugan. Zuleika Hackett, Scribe Provider Attestation: I, Leonard Dugan M.D., personally performed the services described in this documentation. All medicalrecord entries made by the scribe were at my direction and in my presence. I have reviewed the chart and discharge instructions (if applicable) and agree that the record reflects my personal performance and is accurate and complete. Leonard Dugan M.D. documented in this encounterUniversity Hospitals [facility]08-29-2022 History of Present illness Narrative* Leonard Dugan MD - 11/10/2021 12:11 PM EDT Cysto with uroflow 11-12-21 ED 11/07/21: PVR 179 cc, refused a catheter, scheduled to undergo a cystoscopy in [place] but was cancelled due to his urologist was sick Pt underwent TURP x2 within a week AUA= 3-5 wach ROSAMARIA 11/10/21 - 10 gm, rubbery, no nodules US 11/07/21:= mildly complex renal cysts UA and culture 11-07-21= -ve May need UDS based on cysto documented in this encounterUniversity Hospitals Elyria Medical CenterEvaluation note* Diagnosis BPH with obstruction/lower urinary tract symptoms- Primary Hypertrophy of prostate with urinary obstruction and other lower urinary tract symptoms (LUTS) Benign prostatic hyperplasia with urinary retention [facility]* Diagnosis Urinary frequency- Primary Urinary urgency Urgency of urination Urinary straining Straining on urination Feeling of incomplete bladder emptying Incomplete bladder emptying [facility]* Diagnosis Urinary tract infection without hematuria, site unspecified- Primary Feeling of incomplete bladder emptying Incomplete bladder emptying Benign prostatic hyperplasia with urinary retention documented in this encounter [facility] noteNo assessment information [facility] Work Phone: Evaluation note* Diagnosis Retention of urine- Primary Retention of urine, unspecified Flaccid bladder Neurogenic bladder, NOS documented in this encounter [facility] note* Diagnosis Chronic epididymitis- Primary Left hydrocele Hydrocele, unspecified Weak urinary stream Slowing of urinary stream BPH without obstruction/lower urinary tract symptoms Hypertrophy of prostate without urinary obstruction and other lower urinary tract symptoms (LUTS) Epididymitis Orchitis and epididymitis, unspecified documented in this encounter [facility] noteNo InformationNort [employer] Other Evaluation note* Diagnosis BPH with obstruction/lower urinary tract symptoms- Primary Hypertrophy of prostate with urinary obstruction and other lower urinary tract symptoms (LUTS) Recurrent UTI Urinary tract infection, site not specified Weak urinary stream Slowing of urinary stream documented in this encounter [facility] [place] general Narrative - Reported* Type Description Date Medical History Chronic stasis dermatitis Medical History Arthritis, lumbar spine Medical History Carotid bruit Medical History 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 Medical History Benign localized hyp erplasia of prostate with urinary retention Medical History Hypertension Medical History Hyperlipidemia type II Medical History High risk medication use Medical History Arthritis of right shoulder victorina on Surgical History Appendectomy Surgical History LT RCR 2006 Surgical History Tendon's Trimmed in Left Foot 2 000 Surgical History Left Small Toe Removal 1999 Surgical History Left Broken Ankle 1971 Surgical History TURP with cystoscopy 09.20.2019 Hospitalization History see surgical history [employer] Other Reason for referral (narrative)* Outpatient Procedure (Routine) - Pending Review Specialty Diagnoses / Procedures Referred By Marce dillon Referred To Contact [facility] Diagnoses 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 Procedures URODYNAMICS MAGGY POST-VOIDING RESIDUAL URINE&/BLADDER CAP Leonard Dugan MD [address] [place] [address] [id number] [place] [address] Referral ID Status Reason Start Date Expiration Date Visits Requested Visits Authorized [id number] Pending Review Auto-Generat ed Referral 11/12/2021 11/12/2022 1 1 [facility] Summary Purpose Family History No Family History Records FoundNo Family History Records FoundNo Family History Records FoundNo Family History Records FoundNo Family History Records Found Advance Directives Advance Directive Response Recorded Date/ Time Advance Directives No November 6:09pm Medications Administered Section Inactive Administered Medications - up to 3 most recent administrations Medication Order MAR Action Action Date Dose Rate Site cephALEXin 500 mg cap(s) (KEFLEX) 500 mg, ORAL, ONCE, 1 dose, On Wed11/12/21 at 0000, Prior to HOPS procedure, Please document the antimicrobial indication: Prophylaxis Given 11/12/2021 11:22 AM EDT 500 mg lidocaine urojet 2 % 11 mL topical gel (XYLOCAINE, GLYDO) 11 mL, URETHRAL, ONCE, 1 dose, On Wed11/12/21 at 0000, FOR EXTERNAL USE ONLY Given 11/12/2021 11:30 AM EDT 11 mL Inactive Administered Medications - up to 3 most recent administrations Medication Order MAR Action Action Date Dose Rate Site lidocaine urojet 2 % 11 mL topical gel (XYLOCAINE, GLYDO) 11 mL, URETHRAL, ONCE, 1 dose, On Wed01/23/22 at 0000, FOR EXTERNAL USE ONLY Given 12/09/2021 3:00 PM EDT 11 mL Chief Complaint and Reason for Visit Chief Complaint catheter isuues Chief Complaint catheter isuues urinary issue Chief Complaint catheter isuues urinary issue Urinary Frequency Chief Complaint No BM/urinate,abd pa in Reason for Referral Reason Refer for diabetic f oot ulcer and calluses Diagnosis 1 Foot abscess, right (L02.611) Diagnosis 2 Callus of foot (L84) Diagnosis 3 Hammer toe of right foot (M20.41) Referral Organization [facility] Referring Provider First Name Campbell Referring Provider Last Name Ball Referring Provider Specialty Internal Me zenaida Referred Organization [facility] Referred Provider Jhon Tejada Referred Address [address], [place],[address] Referred Provider Specialty Podiatry - S urgical Chiropody Referral Priority Routine General Notes Referral of diabetic w/ SC abscess w/ callus formation right 5th and 2nd toe. Diabetic neuropathy w/ well controlled diabetes. Strong PT pulse. Additional Source Comments (unrecognized sect ion and content) No Status Records FoundNo Status Records FoundNo Status Records FoundNo Status Records FoundNo Status Records Found INFORMATION SOURCE (unrecogn ized section and content) DATE CREATED AUTHOR 11/04/2021 [facility] DATE CREATED AUTHOR AUTHOR'S ORGANIZ ATION 12/13/2021 [facility] DATE CREATED AUTHOR AUTHOR'S ORGANIZ ATION 06/25/2022 [facility] DATE CREATED AUTHOR AUTHOR'S ORGANIZ ATION 01/14/2023 [facility] DATE CREATED AUTHOR AUTHOR'S ORGANIZ ATION 02/04/2023 [facility] Source Comments (unrecognize d section and content) In the event this informatio n is protected by the Federal Confidentiality of Alcohol and Drug Abuse Patient Records regulations: The Federal rules restrict any use of the information to criminally investigate or prosecute any alcohol or drug abuse patient.[facility] CenterIn the event this information is protected by the Federal Confidentiality of Alcohol and Drug Abuse Patient Records regulations: The Federal rules restrict any use of the information to criminally investigate or prosecute any alcohol or drug abuse patient.[facility] CenterIn the event this information is protected by the Federal Confidentiality of Alcohol and Drug Abuse Patient Records regulations: The Federal rules restrict any use of the information to criminally investigate or prosecute any alcohol or drug abuse patient.[facility] CenterIn the event this information is protected by the Federal Confidentiality of Alcohol and Drug Abuse Patient Records regulations: The Federal rules restrict any use of the information to criminally investigate or prosecute any alcohol or drug abuse patient.[facility] CenterIn the event this information is protected by the Federal Confidentiality of Alcohol and Drug Abuse Patient Records regulations: The Federal rules restrict any use of the information to criminally investigate or prosecute any alcohol or drug abuse patient.[facility] CenterIn the event this information is protected by the Federal Confidentiality of Alcohol and Drug Abuse Patient Records regulations: The Federal rules restrict any use of the information to criminally investigate or prosecute any alcohol or drug abuse patient.[facility] CenterIn the event this information is protected by the Federal Confidentiality of Alcohol and Drug Abuse Patient Records regulations: The Federal rules restrict any use of the information to criminally investigate or prosecute any alcohol or drug abuse patient.[facility] CenterIn the event this information is protected by the Federal Confidentiality of Alcohol and Drug Abuse Patient Records regulations: The Federal rules restrict any use of the information to criminally investigate or prosecute any alcohol or drug abuse patient.[facility] CenterIn the event this information is protected by the Federal Confidentiality of Alcohol and Drug Abuse Patient Records regulations: The Federal rules restrict any use of the information to criminally investigate or prosecute any alcohol or drug abuse patient.[facility] CenterIn the event this information is protected by the Federal Confidentiality of Alcohol and Drug Abuse Patient Records regulations: The Federal rules restrict any use of the information to criminally investigate or prosecute any alcohol or drug abuse patient.[facility] CenterIn the event this information is protected by the Federal Confidentiality of Alcohol and Drug Abuse Patient Records regulations: The Federal rules restrict any use of the information to criminally investigate or prosecute any alcohol or drug abuse patient.[facility] CenterIn the event this information is protected by the Federal Confidentiality of Alcohol and Drug Abuse Patient Records regulations: The Federal rules restrict any use of the information to criminally investigate or prosecute any alcohol or drug abuse patient.[facility] Care Teams (unrecognized sec tion and content) Team Status: Active Member Role Status Dates Campbell Naranjo DO Primary Care Provider Active Team Status: Inactive Member Role Status Dates Campbell Naranjo DO Primary Care Provider Active Low Carter DO Emergency Provider Active Display Screen Fabricator Relationship Specialty Start Date End Date Ran Lees Jr. PCP - General 10/10/09 Display Screen Fabricator Relationship Specialty Start Date End Date Ran Lees Jr. PCP - General 10/10/09 Display Screen Fabricator Relationship Specialty Start Date End Date Ran Lees Jr. PCP - General 10/10/09 Display Screen Fabricator Relationship Specialty Start Date End Date Campbell Naranjo DO [address] [place] [address] PCP - General Internal Medicine 11/26/21 Display Screen Fabricator Relationship Specialty Start Date End Date Campbell Naranjo DO [address] [facility] [place] [address] PCP - General Internal Medicine 11/26/21 Display Screen Fabricator Relationship Specialty Start Date End Date Campbell Naranjo, DO [address] [facility] [place] [address] PCP - General Internal Medicine 11/26/21 Display Screen Fabricator Relationship Specialty Start Date End Date Campbell Naranjo, DO [address] [facility] [place] [address] PCP - General Internal Medicine 11/26/21 Team Status: Inactive Member Role Status Dates Campbell Naranjo DO Primary Care Provider Active Davis Cervantes MD Emergency Provider Active Display Screen Fabricator Relationship Specialty Start Date End Date Campbell Naranjo, DO [address] [facility] [place] [address] PCP - General Internal Medicine 11/26/21 Team Status: Inactive Member Role Status Dates Campbell Naranjo , Primary Care Provider Active Sam Simons DO Emergency Provider Active Team Status: Inactive Member Role Status Dates Campbell Naranjo , Primary Care Provider Active Sam Simons , Attending Provider Active Display Screen Fabricator Relationship Specialty Start Date End Date Campbell Naranjo, DO [address] [facility] [place] [address] PCP - General Internal Medicine 11/26/21 Display Screen Fabricator Relationship Specialty Start Date End Date Campbell Naranjo, DO [address] [facility] [place] [address] PCP - General Internal Medicine 11/26/21 Display Screen Fabricator Relationship Specialty Start Date End Date Campbell Naranjo, DO [address] [facility] [place] [address] PCP - General Internal Medicine 11/26/21 Reason for Visit (unrecogniz ed section and content) leg/foot swelling Reason Comments Cystoscopy-1 Reason Comments Hamilton Cath Problem Hematuria Reason Comments urodynamics Reason Comments Hamilton Reason Comments Appointment Reschedule catheter change Reason Comments Patient Update Reason Comments Follow Up Reason Comments Refill Request Reason Comments Consult Goals (unrecognized section and content) Goals may be documented in a n alternate sectionGoals may be documented in an alternate sectionGoals may be documented in an alternate sectionNo InformationNo InformationNo InformationNo InformationNo InformationNo InformationNo InformationNo InformationNo InformationNo InformationNo InformationGoals may be documented in an alternate sectionNo InformationNo InformationNo InformationNo Information FOR RECORDS PERTAINING TO PATIENTS WHO ARE OR HAVE BEEN ENROLLED IN A CHEMICAL DEPENDENCY/SUBSTANCEABUSE PROGRAM, SOME INFORMATION MAY BE OMITTED. This clinical summary was aggregated from multiple sources. Caution should be exercised in using it in the provision of clinical care. This summary normalizes information from multiple sources, and as a consequence, information in this document may materially change the coding, format and clinical context of patient data. In addition, data may be omitted in some cases. CLINICAL DECISIONS SHOULD BE BASED ON THE PRIMARY CLINICAL RECORDS. [facility] [employer] [facility] provides no warranty or guarantee of the accuracy or completeness of information in this document.
== END 2023-03-16 09:18 | disposition home or self-care (01) ==
LOC: WC 09:23
PROVIDERS: PCP Internal Medicine; Visit Provider Podiatrist Foot & Ankle Surgery
DX: E11.621 Type 2 diabetes mellitus with foot ulcer (principal); L97.515 Non-pressure chronic ulcer of other part of right foot with muscle involvement without evidence of necrosis; L97.512 Non-pressure chronic ulcer of other part of right foot with fat layer exposed
CPT/HCPCS: 11042

== ENCOUNTER 2023-03-30 09:00 | Outpatient (OUT) | payer MEDICARE, SELFPAY ==
--- OUTSIDE RECORDS SUMMARY | 2023-03-30 09:06 | XMS_ITS | CCD ---
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 Primary Care Provider Unava ilable RAN LEES JR Primary Care Unavailable KEELY GUTIERREZ Attending Unavailable CAMPBELL NARANJO Primary Care Unavailable Campbell Naranjo DO Primary Care Provider DO Campbell Naranjo Primary Care Provider MD Davis Cervantes Emergency Provider [phone] DO Sam Simons Emergency Provider DO Sam Simons Attending Provider Campbell Naranjo Unavailable DR CAMPBELL NARANJO Primary Care Unavailable QUENTIN, DR SHERMAN Consulting Unavailable BALL, DR SHERMAN Admitting Unavailable BALL, DR SHERMAN Attending Unavailable BALL, DR SHERMAN Primary Care Unavailable [...] Unavailable BALL, DR SHERMAN Primary Care Unavailable BaptisteCornell Unavailable DO Campbell Naranjo Primary Care Provider DO Low Carter Emergency Provider Campbell Naranjo Primary Care Unavailable Low Carter [...] [CIPROFLOXACIN] Drug Allergy 08-01-19 10 GI Upset, [facility] (20 sources) Sulfonamides (Antibiotic); Translations: [SULFA (SULFONAMIDE ANTIBIOTICS)] Propensity to adverse reactions 08-01-19 10 Rash, [facility] (1 source) Ciprofloxacin Drug Allergy [facility] (1 source) Sulfonamides (Antibiotic) Drug allergy (disorder) [facility] (1 source) Allergies Reconciled Propensity to adverse reactions Unknown [facility] Other (1 source) patient allergy list reviewed by nurse or physicia Propensity to adverse reactions 05-20-19 18 Comment:Done [facility] Other (1 source) Ciprofloxacin Drug Allergy 12-12-19 [facility] (1 source) Sulfonamides (Antibiotic) Drug allergy (disorder) 12-12-19 [facility] Medications Current Medications Medication Drug Class(es) Dates Sig (Normalized) Sig (Original) amoxicillin 875 mg / clavulanate 125 mg oral tablet (5 sources) Penicillin-class Antibacterial Start: 02-19-2023 take 1 tablet by mouth every twelve hours Amoxicillin-Pot Clavulanate 875-125 MG 1 tablet Orally every 12 hrs Feb, Active cephalexin 500 mg oral capsule (16 [...] on above: Take 1 capsule by mo ut twice daily. Take 1 capsule by mo [facility] three times daily for 3 days. Start evening prior procedure diclofenac 18 mg oral capsule (16 sources) Nonsteroidal Anti-inflammatory Drug take 1 capsule by mouth three times daily econazole nitrate 10 mg/ml topical cream (16 sources) Azole Antifungal glipiZIDE er 2.5 mg [...] mouth once daily. Glucosamine 1500 Complex - (16 sources) Glucosamine 1500 Complex - as directed Orally Active lidocaine hydrochloride 0.02 mg/mg topical gel (3 [...] one(1) tablet d aily. MSM 1500 MG (16 sources) MSM 1500 MG as d irected Orally Active Multi For Him - (1 source) Multi For Him - as directed Orally Active nitrofurantoin, macrocrystals 50 mg oral capsule (1 [...] 12:00am Start: 12-16-2021 take 1 capsule by [facility] once daily, then take 1 capsule by mouth once daily tamsulosin (FLOMAX) 0.4 mg Take 1 capsule by mouth once daily. Take one cap. daily 30 capsule 5 12/16/2021 Active Comment on above: Take 1 capsule by mo [facility] once daily. Take one cap. daily trimethoprim 100 mg oral tablet (5 sources) Dihydrofolate Reductase Inhibitor Antibacterial Start: 2 End: 2 take 100 mg by mouth twice daily Trimethoprim Active 100 MG PO Twice daily December 17, 2021 12:00am Comment on above: Take 1 tablet by marisela twice daily for 5 days. Turmeric-Yulisa 150-25 MG (1 source) Turmeric-Yulisa 150-25 MG as directed Orally Active Completed/Discontinued Medications Medication Drug Class(es) Dates Sig (Normalized) Sig (Original) 8 hr acetaminophen 650 mg extended release oral tablet (16 sources) take 1 tablet by mouth every four hours as needed Acetaminophen ER 650 MG 1 tablet Orally every 4 hours as needed Not-Taking/PRN take 1 tablet by marisela every four hours as needed Acetaminophen ER 650 MG 1 tablet Orally every 4 hours as needed Active amLODIPine 2.5 mg oral tablet (14 sources) [...] 0 12/11/2021 Active take 1 tablet by marisela every twenty-four hours Aspirin 81 MG 1 tablet Orally Once a day for 30 day(s) Active Comment on above: Aspirin Active 81 MG PO Daily December 11, 2021 12:00am azithromycin 250 mg oral tablet (8 sources) Macrolide Antimicrobial Start: 09-22-2022 Azithromycin 250 MG as directed Orally daily for 5 days Sep, Not-Taking/PRN betamethasone 0.5 mg/ml / clotrimazole 10 mg/ml topical cream (16 sources) Azole Antifungal, Corticosteroid Clotrimazole-Betamet has one 1-0.05 % 1 application Externally three times a day Not-Taking/PRN doxycycline hyclate 100 mg oral capsule (2 sources) Tetracycline-class Drug Start: 12-26-2021 doxycycline hyclate (VIBRAMYCIN) 100 mg capsule gabapentin 300 mg oral capsule (20 sources) Anti-epileptic Agent Start: 07-31-2009 gabapentin(NEURONTIN 300 MG CAP) Take one(1) tablet two(2) times daily. 0 0 07/31/2009 Active Gabapentin 300 M G TAKE 1 CAPSULE 3 TIMES A DAY Active Gabapentin 300 M G 1 capsule bid and 2 q HS Orally tid Active Comment on above: Take one(1) tablet t wo(2) times daily. glucosamine hydrochloride 1500 mg oral tablet (12 sources) Start: 05-25-2019 Glucosamine HCl 1,500 mg tab Take 1,500 mg by mouth. 0 05/25/2019 Active Comment on above: Take 1,500 mg by amrisela th. ammonium lactate 120 mg/ml topical cream [...] Date Documented Date Episodic/Chronic Acquired foot deformities (18 sources) Hammer toe; Translations: [Other hammer toe(s) (acquired), left foot] Chronic Acquired foot deformities (7 sources) Hammer toe; Translations: [Other hammer toe(s) (acquired), right foot] Chronic Acquired foot deformities (16 sources) Acquired cavovarus deformity of left foot; [...] sources) H/O: high risk medication; Translations: [Other intermediate project manager (current) drug therapy] Episodic Other aftercare (1 source) Long-term current use of drug therapy; Translations: [Other intermediate project manager (current) drug therapy] Episodic Other circulatory disease (1 source) Elevated blood-pressure reading, without diagnosis of hypertension; Translations: [Elevated blood pressure reading without diagnosis of hypertension] Onset: 11-26-2021 Episodic Other circulatory disease (15 sources) Carotid bruit; Translations: [Other specified symptoms [...] eye] Episodic Skin and subcutaneous tissue infections (5 sources) Cellulitis of toe of left foot; [...] 08-28-2019 Episodic Other aftercare (1 source) Other intermediate project manager (current) drug therapy; Translations: [OTH CARE HOME CURRENT DRUG THERAPY] Onset: 10-22-2021 Episodic Other [...] Test Name Value Interpretation Reference Range Facility [facility] 02-02-2023 [facility] Office Visit (UROLLN ) NORBERTO WASHINGTON ([id number]) 1940 M Date Time Provider Department 02/02/23 1:30 PM LETICIA MILIAN During your visit today, we recorded the following information about you: Pulse Blood pressure Weight 65/minute 146/70 102.1 kg Leticia Milian, 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 1. INCOMPLETE EMPTYING [...] Stream (imp (more content not included)... Normal [facility] Bacteria Ur Culton 3 Bacteria identified Cx Nom (U) CULTURE, URINE: No growth (<1,000 CFU/ml) Normal [facility] Comment on above: Performed By: #### 6 30-4 #### [facility] CLIA [id number] [address] [place] [address] [place] CNOVon 07-28-2022 CN[facility] Office Visit (UROLLN ) NORBERTO WASHINGTON ([id number]) 1940 M Date Time Provider Department 07/28/22 1:30 PM LETICIA MILIAN During your visit today, we recorded the following information about you: Pulse Blood pressure Weight 68/minute 142/55 100.7 kg Leticia Milian APRN.HEARSE DRIVER 07/30/2022 4:34 PM Addendum Norberto Washington [address] [facility] [address] HISTORY OF PRESENT ILLNESS: Seen 01/20/22 for [...] 07/20/22=neg UA 07/20/22=leuk esterase 250, wbc 11-25 [employer] [employer] SYMPTOMS SCORE. 1. INCOMPLETE EMPTYING [...] -DM UTI (more content not included)... Normal [facility] Bacteria Ur Culton 3 Bacteria identified Cx Nom (U) CULTURE, URINE: No growth (<1,000 CFU/ml) Normal [facility] Comment on above: Performed By: #### 6 30-4 #### [facility] CLIA [id number] [address] [place] [address] [place] Urinalysis complete panel (U )on 07-20-2022 Bilirubin Ql (U) Negative Normal Negative [facility] Comment on above: Order Comment: Speci men Type: URINE SPECIMEN Ordering Facility: [facility] Address: [address] [place], [place] [address] Performed By: #### 2 4356-8 #### [facility] CLIA [id number] [facility] [place] [address] [place] Clarity (Unsp spec) Clear Normal Clear [facility] Comment on above: Order Comment: Speci men Type: URINE SPECIMEN Ordering Facility: [facility] Address: [address] Performed By: #### 2 4356-8 #### [facility] CLIA [id number] [address] [place] [address] [place] Color (U) Yellow Normal Yellow [facility] Comment on above: Order Comment: Speci men Type: URINE SPECIMEN Ordering Facility: [facility] Address: [address] Performed By: #### 2 4356-8 #### [facility] CLIA [id number] [address] [place] [address] [place] Epithelial cells LM.HPF (Urine sed) [#/Area] Few Normal [facility] Comment on above: Order Comment: Speci men Type: URINE SPECIMEN Ordering Facility: [facility] Address: [address] [place], [place] [address] Performed By: #### 2 4356-8 #### [facility] CLIA [id number] [address] [place] [address] [place] Glucose Test strip (U) [Mass/Vol] Negative Normal Trace, Negative [facility] Comment on above: Order Comment: Speci men Type: URINE SPECIMEN Ordering Facility: [facility] Address: [address] [place], [place] [address] Performed By: #### 2 4356-8 #### [facility] CLIA [id number] [address] [place] [address] [place] Hemoglobin Ql (U) Negative Normal Negative, Trace [facility] Comment on above: Order Comment: Speci men Type: URINE SPECIMEN Ordering Facility: [facility] Address: [address] Performed By: #### 2 4356-8 #### [facility] CLIA [id number] [address] [place] [address] [place] Ketones Ql (U) Negative Normal Trace, Negative [facility] Comment on above: Order Comment: Speci men Type: URINE SPECIMEN Ordering Facility: [facility] Address: [address] [place] [address] Performed By: #### 2 4356-8 #### [facility] CLIA [id number] [address] [place] [address] [place] Leukocyte esterase Test strip Ql (U) 250 Ayaz/uL Abnormal Negative, 25 Ayaz/uL [facility] Comment on above: Order Comment: Speci men Type: URINE SPECIMEN Ordering Facility: [facility] Address: [address] [place] [address] Performed By: #### 2 4356-8 #### [facility] CLIA [id number] [address] [place] [address] [place] Nitrite Ql (U) Negative Normal Negative [facility] Comment on above: Order Comment: Speci men Type: URINE SPECIMEN Ordering Facility: [facility] Address: [address] [place], [place] [address] Performed By: #### 2 4356-8 #### [facility] CLIA [id number] [address] [place] [address] [place] pH (U) 5.5 [pH] Normal 5.0-8.0 [facility] Comment on above: Order Comment: Speci men Type: URINE SPECIMEN Ordering Facility: [facility] Address: [address] [place], [place] [address] Performed By: #### 2 4356-8 #### [facility] CLIA [id number] [address] [place] [address] [place] Protein (U) [Mass/Vol] Negative Normal Trace , Negative [facility] Comment on above: Order Comment: Speci men Type: URINE SPECIMEN Ordering Facility: [facility] Address: [address] [place], [place] [address] Performed By: #### 2 4356-8 #### [facility] CLIA [id number] [facility] [place] [address] [place] RBC LM.HPF (Urine sed) [#/Area] 0-3 /HPF Normal 0-3 /HPF [facility] Comment on above: Order Comment: Speci men Type: URINE SPECIMEN Ordering Facility: [facility] Address: [address] [place], [place] [address] Performed By: #### 2 4356-8 #### [facility] CLIA [id number] [address] [place] [address] [place] Specific gravity (U) [Rel density] 1.016 Normal 1.005-1.030 [facility] Comment on above: Order Comment: Speci men Type: URINE SPECIMEN Ordering Facility: [facility] Address: [address] [place], [place] [address] Performed By: #### 2 4356-8 #### [facility] CLIA [id number] [address] [place] [address] [place] Urobilinogen Ql (U) Negative Normal Negative [facility] Comment on above: Order Comment: Speci men Type: URINE SPECIMEN Ordering Facility: [facility] Address: [address] [place], [place] [address] Performed By: #### 2 4356-8 #### [facility] CLIA [id number] [address] [place] [address] [place] WBC LM.HPF (Urine sed) [#/Area] 11-25 /HPF Abnormal 0-5 /HPF [facility] Comment on above: Order Comment: Speci men Type: URINE SPECIMEN Ordering Facility: [facility] Address: [address] [place], [place] [address] Performed By: #### 2 4356-8 #### [facility] CLIA [id number] [address] [place] [address] [place] GLYCOHEMOGLOBIN A1Con 2022 ADA RECOMMENDATION SEE BELOW Normal [facility] Comment on above: Result Comment: ADA RECOMMENDED LIMIT 4.0 - 6.0 ADA THERAPEUTIC TARGET < 7.0 ACTION SUGGESTED > 7.0 Performed By: #### A 1C #### [facility] [address] [address] [address] Juan Pablo Kaminski Glucose [Mass/Vol] 128 mg/dL Normal [facility] Comment on above: Performed By: #### A 1C #### [facility] [address] [address] [address] Juan Pablo Kaminski HbA1c (Bld) [Mass fraction] 6.1 % Normal 4.5-6.2 [facility] Comment on above: Performed By: #### A 1C #### [facility] [address] [place] [address] Dr. Juan Pablo Kaminski A1C with Estimated Average G luon 03-20-2022 A1C with Estimated Average Glu 128 [email or web address] [facility] [employer] Other A1C with Estimated Average Glu [facility] Other HbA1c (Bld) [Mass fraction] 6.1 % Normal 4.5-6.2 [facility] Other Comment on above: Performed By: #### A 1C #### [facility] [address] [place] [address] Dr. Juan Pablo Kaminski GLYCOHEMOGLOBIN A1Con 2022 ADA RECOMMENDATION SEE BELOW Normal [facility] Comment on above: Result Comment: ADA RECOMMENDED LIMIT 4.0 - 6.0 ADA THERAPEUTIC TARGET < 7.0 ACTION SUGGESTED > 7.0 Performed By: #### A 1C #### [facility] [address] [place] [address] Dr. Juan Pablo Kaminski Glucose [Mass/Vol] 128 mg/dL Normal [facility] Comment on above: Performed By: #### A 1C #### [facility] [address] [place] [address] Dr. Juan Pablo Kaminski US SCROTUM W [...] by: LEIDY PEREIRA Date: 2021-12-25 18:32 Normal [facility] Urine culture routineOrdered By: Sam Simons on 12-19-2021 Bacteria identified Cx Nom (U) Pseudomonas aeruginosa [facility] Automated erythrocytes count in urine sediment (number/area)Ordered By: Sam Simons on 12-17-2021 RBC Auto (Urine sed) [#/Area] 1-2 [HPF] 0-4 [facility] Automated leukocytes count i n urine sediment (number/area)Ordered By: Sam Simons on 12-17-2021 WBC Auto (Urine sed) [#/Area] 20-49 [HPF] 0-4 [facility] Bilirubin Test strip Ql (U)O rdered By: Sam Simons on 12-17-2021 Bilirubin Ql (U) Negative Negative [facility] Color Auto (U)Ordered By: Micheal Simons on 12-17-2021 Color (U) Yellow Yellow [facility] Ketones Auto test strip (U) [Mass/Vol]Ordered By: Sam Simons on 12-17-2021 Ketones (U) [Mass/Vol] Negative Negative [facility] - UrinalysisOrder ed By: Sam Simons on 12-17-2021 Hyaline casts LM Ql (Urine sed) 0-8 [LPF] 0-8 [facility] Nitrite Test strip Ql (U)Ord ered By: Sam Simons on 12-17-2021 Nitrite Ql (U) Negative Negative [facility] Protein Auto test strip (U) [Mass/Vol]Ordered By: Sam Simons on 12-17-2021 Protein (U) [Mass/Vol] Negative Negative [facility] Specific gravity Auto test s trip (U) [Rel density]Ordered By: Sam Simons on 12-17-2021 Specific gravity (U) [Rel density] 1.016 1.001-1.030 [facility] Squamous epithelial cells de tection in urine sediment by light microscopyOrdered By: Sam Simons on 12-17-2021 Epithelial cells.squamous LM Ql (Urine sed) 0-1 [HPF] 0-2 [facility] Urine bacteria detection by automated methodOrdered By: Sam Simons on 12-17-2021 Bacteria Auto Ql (U) None seen None Seen [facility] Urine clarity by refractomet ry automatedOrdered By: Sam Simons on 12-17-2021 Clarity Refractometry automated (U) Clear Clear [facility] Urine glucose measurement by automated test strip (mass/volume)Ordered By: Sam Simons on 12-17-2021 Glucose Auto test strip (U) [Mass/Vol] Normal mg/dL Normal [facility] Urine hemoglobin detection b y automated test stripOrdered By: Sam Simons on 12-17-2021 Hemoglobin Auto test strip Ql (U) Negative Negative [facility] Urine leukocyte esterase det ection by automated test stripOrdered By: Sam Simons on 12-17-2021 Leukocyte esterase Auto test strip Ql (U) 4+ Negative [facility] Urobilinogen Auto test strip (U) [Mass/Vol]Ordered By: Sam Simons on 12-17-2021 Urobilinogen (U) [Mass/Vol] Normal mg/dL Normal [facility] pH Auto test strip (U)Ordere d By: Sam Simons on 12-17-2021 pH (U) 6.0 [pH] 5.0-9.0 [facility] Urine culture routineOrdered By: Davis Cervantes on 12-13-2021 Bacteria identified Cx Nom (U) No Growth 2 Days [facility] Automated erythrocytes count in urine sediment (number/area)Ordered By: Davis Cervantes on 12-11-2021 RBC Auto (Urine sed) [#/Area] 20-49 [HPF] 0-4 [facility] Automated leukocytes count i n urine sediment (number/area)Ordered By: Davis Cervantes on 12-11-2021 WBC Auto (Urine sed) [#/Area] 10-19 [HPF] 0-4 [facility] Basophils Auto (Bld) [#/Vol] Ordered By: Davis Cervantes on 12-11-2021 Basophils (Bld) [#/Vol] 0.1 10*3/uL 0.0-0.2 [facility] Basophils/100 WBC Auto (Bld) Ordered By: Davis Cervantes on 12-11-2021 Basophils/100 WBC (Bld) 1.2 % . [facility] Bilirubin Test strip Ql (U)O rdered By: Davis Cervantes on 12-11-2021 Bilirubin Ql (U) Negative Negative [facility] Blood hemoglobin measurement (mass/volume)Ordered By: Davis Cervantes on 12-11-2021 Hemoglobin (Bld) [Mass/Vol] 13.3 g/dL 13.0-17.0 [facility] Blood leukocytes automated c ount (number/volume)Ordered By: Davis Cervantes on 12-11-2021 WBC (Bld) [#/Vol] 8.2 10*3/uL 4.5-11.0 [facility] Color Auto (U)Ordered By: Mary Cervantes on 12-11-2021 Color (U) Yellow Yellow [facility] Creatinine and Glomerular fi ltration rate.predicted panel (S/P/Bld)Ordered By: Davis Cervantes on 12-11-2021 Creatinine [Mass/Vol] 1.16 mg/dL 0.64-1.27 [facility] Eosinophils Auto (Bld) [#/Vo l]Ordered By: Davis Cervantes on 12-11-2021 Eosinophils (Bld) [#/Vol] 0.2 10*3/uL 0.0-0.45 [facility] Eosinophils/100 WBC Auto (Bl d)Ordered By: Davis Cervantes on 12-11-2021 Eosinophils/100 WBC (Bld) 2.9 % . [facility] Erythrocyte distribution wid th Auto (RBC) [Ratio]Ordered By: Davis Cervantes on 12-11-2021 Erythrocyte distribution width (RBC) [Ratio] 11.8 % 12.0-14.8 [facility] Estimated glomerular filtrat ion rate (GFR) non- AmericanOrdered By: Davis Cervantes on 12-11-2021 GFR/1.73 sq M.predicted among non-blacks MDRD (S/P/Bld) [Vol rate/Area] 60 mL/Min [facility] Hematocrit Auto (Bld) [Volum e fraction]Ordered By: Davis Cervantes on 12-11-2021 Hematocrit (Bld) [Volume fraction] 39.6 % 38.8-50.0 [facility] Ketones Auto test strip (U) [Mass/Vol]Ordered By: Davis Cervantes on 12-11-2021 Ketones (U) [Mass/Vol] Negative Negative [facility] Hematology and Cell countsOrdered By: Davis Cervantes on 12-11-2021 Nucleated RBC/100 WBC (Bld) [Ratio] 0.0 % 0-0.5 [facility] - UrinalysisOrder ed By: Davis Cervantes on 12-11-2021 Hyaline casts LM Ql (Urine sed) 0-8 [LPF] 0-8 [facility] Lymphocytes Auto (Bld) [#/Vo l]Ordered By: Davis Cervantes on 12-11-2021 Lymphocytes (Bld) [#/Vol] 1.9 10*3/uL 1.00-4.8 [facility] Lymphocytes/100 WBC Auto (Bl d)Ordered By: Davis Cervantes on 12-11-2021 Lymphocytes/100 WBC (Bld) 23.3 % . [facility] MCH Auto (RBC) [Entitic mass ]Ordered By: Davis Cervantes on 12-11-2021 MCH (RBC) [Entitic mass] 32.0 pg 27.5-35.2 [facility] MCHC Auto (RBC) [Mass/Vol]Or dered By: Davis Cervantes on 12-11-2021 MCHC (RBC) [Mass/Vol] 33.6 g/dL 32.5-35.6 [facility] MCV Auto (RBC) [Entitic vol] Ordered By: Davis Cervantes on 12-11-2021 MCV (RBC) [Entitic vol] 95.1 fL 83.5-101 [facility] Monocytes Auto (Bld) [#/Vol] Ordered By: Davis Cervantes on 12-11-2021 Monocytes (Bld) [#/Vol] 1.1 10*3/uL 0.0-0.8 [facility] Monocytes/100 WBC Auto (Bld) Ordered By: Davis Cervantes on 12-11-2021 Monocytes/100 WBC (Bld) 13.6 % . [facility] Neutrophils Auto (Bld) [#/Vo l]Ordered By: Davis Cervantes on 12-11-2021 Neutrophils (Bld) [#/Vol] 4.8 10*3/uL 1.8-7.7 [facility] Neutrophils/100 WBC Auto (Bl d)Ordered By: Davis Cervantes on 12-11-2021 Neutrophils/100 WBC (Bld) 59.0 % . [facility] Nitrite Test strip Ql (U)Ord ered By: Davis Cervantes on 12-11-2021 Nitrite Ql (U) Negative Negative [facility] No Panel InformationOrdered By: Davis Cervantes on 12-11-2021 Estimated GFR () > 60 mL/Min [facility] Comment on above: GFR estimated refere nce range: According to KDOQI guidelines, <60 ml/min/1.73m2 is sufficient to diagnose a patient with chronic kidney disease. Pharmacy Creatinine Clearance (Chem 57.67 [facility] Platelet mean volume Auto (B ld) [Entitic vol]Ordered By: Davis Cervantes on 12-11-2021 Platelet mean volume (Bld) [Entitic vol] 7.0 fL 6.6-10.1 [facility] Platelets Auto (Bld) [#/Vol] Ordered By: Davis Cervantes on 12-11-2021 Platelets (Bld) [#/Vol] 266 10*3/uL 150-450 [facility] Protein Auto test strip (U) [Mass/Vol]Ordered By: Davis Cervantes on 12-11-2021 Protein (U) [Mass/Vol] Negative Negative Fi [facility] RBC Auto (Bld) [#/Vol]Ordere d By: Davis Cervantes on 12-11-2021 RBC (Bld) [#/Vol] 4.17 10*6/uL 3.90-5.60 [facility] Serum or plasma anion gap de terminationOrdered By: Davis Cervantes on 12-11-2021 Anion gap [Moles/Vol] 12.2 mmol/L 6.0-15.0 [facility] Serum or plasma calcium maggy urement (mass/volume)Ordered By: Davis Cervantes on 12-11-2021 Calcium [Mass/Vol] 9.0 mg/dL 8.2-10.2 [facility] Serum or plasma chloride duran surement (moles/volume)Ordered By: Davis Cervantes on 12-11-2021 Chloride [Moles/Vol] 96 mmol/L 95-114 [facility] Serum or plasma glucose maggy urement (mass/volume)Ordered By: Davis Cervantes on 12-11-2021 Glucose [Mass/Vol] 131 mg/dL 70-100 [facility] Comment on above: ADA recommended refe rence rangeRandom Glucose Reference Range is dependent on time and content of last meal. Glucose of more than 200 mg/dL in a nonstressed, ambulatory subject supports the diagnosis of Diabetes Mellitus. Serum or plasma potassium me asurement (moles/volume)Ordered By: Davis Cervantes on 12-11-2021 Potassium [Moles/Vol] 4.5 mmol/L 3.5-5.1 [facility] Serum or plasma sodium measu rement (moles/volume)Ordered By: Davis Cervantes on 12-11-2021 Sodium [Moles/Vol] 131 mmol/L 136-146 [facility] Serum or plasma total carbon dioxide measurement (moles/volume)Ordered By: Davis Cervantes on 12-11-2021 CO2 [Moles/Vol] 27.3 mmol/L 22.0-30.0 [facility] Serum or plasma urea nitroge n measurement (mass/volume)Ordered By: Davis Cervantes on 12-11-2021 Urea nitrogen [Mass/Vol] 20 mg/dL 9-23 [facility] Specific gravity Auto test s trip (U) [Rel density]Ordered By: Davis Cervantes on 12-11-2021 Specific gravity (U) [Rel density] 1.014 1.001-1.030 [facility] Squamous epithelial cells de tection in urine sediment by light microscopyOrdered By: Davis Cervantes on 12-11-2021 Epithelial cells.squamous LM Ql (Urine sed) 0-1 [HPF] 0-2 [facility] Urine bacteria detection by automated methodOrdered By: Davis Cervantes on 12-11-2021 Bacteria Auto Ql (U) None seen None Seen [facility] Urine clarity by refractomet ry automatedOrdered By: Davis Cervantes on 12-11-2021 Clarity Refractometry automated (U) Clear Clear [facility] Urine glucose measurement by automated test strip (mass/volume)Ordered By: Davis Cervantes on 12-11-2021 Glucose Auto test strip (U) [Mass/Vol] Normal mg/dL Normal [facility] Urine hemoglobin detection b y automated test stripOrdered By: Davis Cervantes on 12-11-2021 Hemoglobin Auto test strip Ql (U) 2+ Negative [facility] Urine leukocyte esterase det ection by automated test stripOrdered By: Davis Cervantes on 12-11-2021 Leukocyte esterase Auto test strip Ql (U) 2+ Negative [facility] Urobilinogen Auto test strip (U) [Mass/Vol]Ordered By: Davis Cervantes on 12-11-2021 Urobilinogen (U) [Mass/Vol] Normal mg/dL Normal [facility] pH Auto test strip (U)Ordere d By: Davis Cervantes on 12-11-2021 pH (U) 5.5 [pH] 5.0-9.0 [facility] ED NOTEon 11-27-2021 ED NOTE HNO ID: [id number] Author: Alyx Vergara RN Service: Nursing Author Type: Registered Nurse Type: ED Notes Filed: 11/26/2021 10:21 PM Note Text: Discharge instructions and follow up appointments reviewed. Pt verbalized understanding and states no concerns or questions at this time. VSS. Spoke with Asha about elevated BP. Stated that it's okay for pt to go and have him f/u with his PCP. Normal [facility] ED NOTE HNO ID: [id number] Author: Alyx Vergara RN Service: Nursing Author Type: Registered Nurse Type: ED Notes Filed: 11/26/2021 10:10 PM Note Text: Replaced hamilton bag with leg bag. Normal [facility] Bacteria Ur Culton 2 Bacteria identified Cx Nom (U) [id number] Abnormal [facility] Comment on above: Order Comment: Speci men Type: URINE SPECIMEN Ordering Facility: [facility] Address: [address] [place] [address] Result Comment: >=10 0,000 CFU/ml Klebsiella oxytoca Performed By: #### 6 30-4, 52223-7 #### [facility] CLIA [id number] [address] [place] [address] [place] Bacterial susceptibility maldonado el (Isol)on 11-26-2021 Ampicillin [Susc] Resistant [facility] Comment on above: Order Comment: Order ing Facility: [facility] Address: [address] [place] [address] Performed By: #### 6 30-4, 27202-5 #### [facility] CLIA [id number] [address] [place] [address] [place] Ampicillin+Sulbactam [Susc] 4 Susceptible Susceptible <=8 , Intermediate >8 , Resistant >16 [facility] Comment on above: Order Comment: Order ing Facility: [facility] Address: [address] [place], [place] [address] Performed By: #### 6 30-4, 45826-2 #### [facility] CLIA [id number] [address] [place] [address] [place] [facility] ceFAZolin [Susc] <=4 Susceptible Susceptible 0-16 , Intermediate <0 or >16 , Resistant >16 [facility] Comment on above: Order Comment: Order ing Facility: [facility] Address: [address] [place], [place] [address] Performed By: #### 6 30-4, 07690-2 #### [facility] CLIA [id number] [address] [place] [address] [place] Cefepime [Susc] <=1 Susceptible Susceptible <=2 , Intermediate >2 , Resistant >=16 [facility] Comment on above: Order Comment: Order ing Facility: [facility] Address: [address] [place] [address] Performed By: #### 6 30-4, 05055-7 #### [facility] CLIA [id number] [address] [place] [address] [place] cefTRIAXone [Susc] <=1 Susceptible Susceptib le <=1 , Intermediate >1 , Resistant >=4 [facility] Comment on above: Order Comment: Order ing Facility: [facility] Address: [address] [place], [place] [address] Performed By: #### 6 30-4, 50297-7 #### [facility] CLIA [id number] [address] [place] [address] [place] Ciprofloxacin [Susc] <=0.25 Susceptible Suscept ible <0.5 , Intermediate >=.5 , Resistant >=1 [facility] Comment on above: Order Comment: Order ing Facility: [facility] Address: [address] [place], [place] [address] Performed By: #### 6 30-4, 80598-9 #### [facility] CLIA [id number] [address] [place] Ertapenem ROCIO [Susc] <=0.5 Susceptible Suscept ible <=0.5 , Intermediate >.5 , Resistant >1 [facility] Comment on above: Order Comment: Order ing Facility: [facility] Address: [address] [place] [address] Performed By: #### 6 30-4, 00859-6 #### [facility] CLIA [id number] [address] [place] [address] [place] Gentamicin [Susc] <=1 Susceptible Susceptibl e <=4 , Intermediate >4 , Resistant >8 [facility] Comment on above: Order Comment: Order ing Facility: [facility] Address: [address] [place] [address] Performed By: #### 6 30-4, 33294-0 #### [facility] [place] [id number] [address] [place] [address] [place] Meropenem [Susc] <=0.25 Susceptible Susceptible <=1 , Intermediate >1 , Resistant >2 [facility] Comment on above: Order Comment: Order ing Facility: [facility] Address: [address] [place] [address] Performed By: #### 6 30-4, 13617-1 #### [facility] CLIA [id number] [address] [place] [address] [place] Nitrofurantoin [Susc] 32 Susceptible Suscep tible <=32 , Intermediate >32 , Resistant >64 [facility] Comment on above: Order Comment: Order ing Facility: [facility] Address: [address] [place], [place] [address] Performed By: #### 6 30-4, 71848-1 #### [facility] CLIA [id number] [address] [place] [address] [place] Piperacillin+Sulbactam ROCIO [Susc] <=4 Susceptible Susceptible <=16 , Intermediate >16 , Resistant >64 [facility] Comment on above: Order Comment: Order ing Facility: [facility] Address: [address] [place] [address] Performed By: #### 6 30-4, 19954-1 #### [facility] CLIA [id number] [address] [place] [address] Tobramycin [Susc] <=1 Susceptible Susceptibl e <=4 , Intermediate >4 , Resistant >8 [facility] Comment on above: Order Comment: Order ing Facility: [facility] Address: [address] [place] [address] Performed By: #### 6 30-4, 81268-7 #### [facility] CLIA [id number] [address] [place] [address] Trimethoprim+Sulfameth oxazole [Susc] <=20 Susceptible Susceptible <=40 , Resistant >40 [facility] Comment on above: Order Comment: Order ing Facility: [facility] Address: [address] [place] [address] Performed By: #### 6 30-4, 34949-2 #### [facility] CLIA [id number] [address] [place] [address] ED NOTEon 11-26-2021 ED NOTE HNO ID: [id number] Author: Alyx Vergara RN Service: Nursing Author Type: Registered Nurse Type: ED Notes Filed: 11/26/2021 9:20 PM Note Text: Replaced hamilton per Asha BARR. [facility] ED NOTE HNO ID: [id number] Author: Alyx Vergara RN Service: Nursing Author Type: Registered Nurse Type: ED Notes Filed: 11/26/2021 9:01 PM Note Text: Was instructed to bladder scan pt due to pt having no urine in replaced bag. Bladder scanned 261 mL's the first time. Then 214 mL's the second time. Made Asha ESQUIVEL) aware. [facility] ED NOTE HNO ID: [id number] Author: Alyx Vergara, RN Service: Nursing Author Type: Registered Nurse Type: ED Notes Filed: 11/26/2021 9:49 PM Note Text: Flushed 20 mL Hamilton. No leaking noted around tube. Normal [facility] ED PROV NOTEon 11-26-2021 ED PROV NOTE HNO ID: [id number] Author: Asha Clinton PA-C Service: ? Author Type: Physician Manufacturing Engineering Intern Type: ED Provider Notes Filed: 11/26/2021 10:26 PM Note Text: ED Provider Note Patient Name: Norberto Washington : 1940 SERVICE DATE: 11/26/21 History Patient presents with: Hamilton Cath Problem: Pt had hamilton placed 11/12, [...] / Clinical Impression Clinical Impressions as of 11/26/212224 Acute cystitis with hematuria Urinary retention Elevated [...] culture. Previous and only urine culture in [facility] on 11/07 had no growth. Given dose of Keflex. Prescription for this E scripted to pharmacy. Patient discharged with Hamilton in place, leg bag instructions. Elevated blood pressure noted and improved during stay. No CP, sob, dizziness or any other complaints. Recommend f/u with pcp for recheck. All questions and concerns addre (more content not included)... Normal [facility] Urinalysis complete panel (U )on 11-26-2021 Bacteria LM.HPF (Urine sed) [#/Area] Many Abnormal None Seen [facility] Comment on above: Order Comment: Speci men Type: URINE SPECIMEN Ordering Facility: [facility] Address: [address] [place] [address] Performed By: #### 6 30-4, 81880-9 #### [facility] CLIA [id number] [address] [place] [address] [place] Bilirubin Ql (U) Negative Normal Negative [facility] Comment on above: Order Comment: Speci men Type: URINE SPECIMEN Ordering Facility: [facility] Address: [address] [place] [address] Performed By: #### 6 30-4, 60170-6 #### [facility] CLIA [id number] [address] [place], [place] [address] [place] [address] [place] Clarity (Unsp spec) Cloudy Abnormal Clear [facility] Comment on above: Order Comment: Speci men Type: URINE SPECIMEN Ordering Facility: [facility] Address: [address] [address] Performed By: #### 6 30-4, 10718-8 #### [facility] CLIA [id number] [address] [place] [address] [place] Color (U) Yellow Normal Yellow [facility] Comment on above: Order Comment: Speci men Type: URINE SPECIMEN Ordering Facility: [facility] Address: [address] [place] [address] Performed By: #### 6 30-4, 56607-6 #### [facility] CLIA [id number] [address] [place] [address] [place] Epithelial cells LM.HPF (Urine sed) [#/Area] Few Normal [facility] Comment on above: Order Comment: Speci men Type: URINE SPECIMEN Ordering Facility: [facility] Address: [address] [place] [address] Performed By: #### 6 30-4, 77456-7 #### [facility] CLIA [id number] [address] [place] [address] [place] Glucose Test strip (U) [Mass/Vol] Negative Normal Negative [facility] Comment on above: Order Comment: Speci men Type: URINE SPECIMEN Ordering Facility: [facility] Address: [address] [place] [address] Performed By: #### 6 30-4, 51621-8 #### [facility] CLIA [id number] [address] [place] [address] [place] Hemoglobin Ql (U) 2+ Abnormal Negative [facility] Comment on above: Order Comment: Speci men Type: URINE SPECIMEN Ordering Facility: [facility] Address: [address] [place], [place] [address] Performed By: #### 6 30-4, 38865-5 #### [facility] CLIA [id number] [address] [place] [address] [place] Ketones Ql (U) Negative Normal Negative [facility] Comment on above: Order Comment: Speci men Type: URINE SPECIMEN Ordering Facility: [facility] Address: [address] [place], [place] [address] Performed By: #### 6 30-4, 12798-5 #### [facility] CLIA [id number] [address] [place] [address] [place] Leukocyte esterase Test strip Ql (U) 3+ Abnormal Negative [facility] Comment on above: Order Comment: Speci men Type: URINE SPECIMEN Ordering Facility: [facility] Address: [address] [place] [address] Performed By: #### 6 30-4, 92358-1 #### [facility] CLIA [id number] [address] [place] [address] [place] Nitrite Ql (U) Positive Abnormal Negative [facility] Comment on above: Order Comment: Speci men Type: URINE SPECIMEN Ordering Facility: [facility] Address: [address] [place] [address] Performed By: #### 6 30-4, 19190-5 #### [facility] CLIA [id number] [address] [place] [address] [place] pH (U) 5.5 [pH] Normal 5.0-8.0 [facility] Comment on above: Order Comment: Speci men Type: URINE SPECIMEN Ordering Facility: [facility] Address: [address] [place] [address] Performed By: #### 6 30-4, 29165-6 #### [facility] CLIA [id number] [address] [place] [address] [place] Protein (U) [Mass/Vol] Normal [facility] Comment on above: Order Comment: Speci men Type: URINE SPECIMEN Ordering Facility: [facility] Address: [address] [place] [address] Result Comment: Visi ble blood causes falsely elevated results for analyte Protein. Due to this limitation, Protein will not be reported for patients whose urine contains visible blood. Performed By: #### 6 30-4, 83600-6 #### [facility] CLIA [id number] [address] [place] [address] [place] RBC LM.HPF (Urine sed) [#/Area] 6-10 /HPF Abnormal 0-3 /HPF [facility] Comment on above: Order Comment: Speci men Type: URINE SPECIMEN Ordering Facility: [facility] Address: [address] [place] [address] Performed By: #### 6 30-4, 52636-0 #### [facility] CLIA [id number] [address] [place] [address] [place] Specific gravity (U) [Rel density] 1.009 Normal 1.005-1.030 [facility] Comment on above: Order Comment: Speci men Type: URINE SPECIMEN Ordering Facility: [facility] Address: [address] [place] [address] Performed By: #### 6 30-4, 94928-5 #### [facility] CLIA [id number] [address] [place] [address] [place] Urobilinogen Ql (U) 0.2 EU/dL Normal 0.2-1.0 EU/dL [facility] Comment on above: Order Comment: Speci men Type: URINE SPECIMEN Ordering Facility: [facility] Address: [address] [place] [address] Performed By: #### 6 30-4, 80740-4 #### [facility] CLIA [id number] [address] [place] [address] [place] WBC LM.HPF (Urine sed) [#/Area] 11-25 /HPF Abnormal 0-5 /HPF [facility] Comment on above: Order Comment: Speci men Type: URINE SPECIMEN Ordering Facility: [facility] Address: [address] [place] [address] Performed By: #### 6 30-4, 51287-8 #### [facility] CLIA [id number] [address] [place] [address] [place] Covid-19 PCR (CVDTB)on SARS-CoV-2 (COVID-19) RNA LUANNE+probe Ql (Unsp spec) Not detected Normal NOT DETECTED [facility] Comment on above: Result Comment: This test is not yet approved or cleared by the [place] FDA. When there are no FDA-approved or cleared tests available, and other criteria are met, FDA can make tests available under an emergency access mechanism called an Emergency Use Authorization (EUA). The EUA for this test is supported by the [place] of Health and Human Service's (HHS's) declaration [...] SARS-CoV-2. Performed By: #### C VDTB #### [facility] [address] [place] [address] Dr. Juan Pablo Kaminski Bacteria Ur Culton 2 Bacteria identified Cx Nom (U) No growth (<1,000 CFU/ml) Normal [facility] Comment on above: Order Comment: Speci men Type: URINE SPECIMEN Ordering Facility: [facility] Address: [address] [place] [id number] Performed By: #### 6 30-4 #### [facility] CLIA [id number] [address] [place] [address] [place] [address] [place] Basic metabolic 2000 panelon 11-07-2021 Anion gap [Moles/Vol] 10 mmol/L Normal 11-30 [facility] Comment on above: Order Comment: Speci men Type: URINE SPECIMEN Ordering Facility: [facility] Address: [address] [place] [id number] Performed By: #### 6 30-4, 33492-3 #### [facility] CLIA [id number] [address] [place] [address] [place] Calcium [Mass/Vol] 9.1 mg/dL Normal 8.5-10.2 [facility] Comment on above: Order Comment: Speci men Type: URINE SPECIMEN Ordering Facility: [facility] Address: [address] [place], [place] [address] Performed By: #### 6 30-4, 51525-7 #### [facility] CLIA [id number] [address] [place] [address] [place] Chloride [Moles/Vol] 95 mmol/L Low 97-105 [facility] Comment on above: Order Comment: Speci men Type: URINE SPECIMEN Ordering Facility: [facility] Address: [address] [place] [address] Performed By: #### 6 30-4, 15707-2 #### [facility] CLIA [id number] [address] [place] [address] [place] CO2 [Moles/Vol] 25 mmol/L Normal 22-30 [facility] Comment on above: Order Comment: Speci men Type: URINE SPECIMEN Ordering Facility: [facility] Address: [address] [place], [place] [address] Performed By: #### 6 30-4, 65942-1 #### [facility] CLIA [id number] [address] [place] [address] [place] Creatinine [Mass/Vol] 1.25 mg/dL High 0.73-1.22 [facility] Comment on above: Order Comment: Speci men Type: URINE SPECIMEN Ordering Facility: [facility] Address: [address] [place], [place] [address] Performed By: #### 6 30-4, 89509-1 #### [facility] CLIA [id number] [address] [place] [address] [place] ESTIMATED GLOMERULAR FILTRATION RATE 57 mL/min/1.73m??? Low >=60 [facility] Comment on above: Order Comment: Domonique garcia Type: URINE SPECIMEN Ordering Facility: [facility] Address: [address] [place], [place] [id number] Result Comment: Annalise mated Glomerular Filtration Rate [...] actual GFR. Performed By: #### 6 30-4, 85908-5 #### [facility] CLIA [id number] [address] [place] [address] [place] Glucose [Mass/Vol] 129 mg/dL High 74-99 [facility] Comment on above: Order Comment: Domonique garcia Type: URINE SPECIMEN Ordering Facility: [facility] Address: [address] [place], [place] [address] Result Comment: The [place] Diabetes Association (ADA) provides guidance for cutoff [...] Standards of Medical Care in Diabetes 2016, [place] [employer]. Diabetes Care. 2016.39(Suppl 1). Performed By: #### 6 30-4, 65714-2 #### [facility] CLIA [id number] [address] [place] [address] [place] Potassium [Moles/Vol] 4.6 mmol/L Normal 3.7-5.1 [facility] Comment on above: Order Comment: Speci men Type: URINE SPECIMEN Ordering Facility: [facility] Address: [address] [place], [place] [address] Performed By: #### 6 30-4, 39557-2 #### [facility] CLIA [id number] [address] [place] [address] [place] Sodium [Moles/Vol] 130 mmol/L Low 136-144 [facility] Comment on above: Order Comment: Speci men Type: URINE SPECIMEN Ordering Facility: [facility] Address: [address] [place] [address] Performed By: #### 6 30-4, 74231-4 #### [facility] CLIA [id number] [address] [place] [address] [place] Urea nitrogen [Mass/Vol] 23 mg/dL Normal 9-24 [facility] Comment on above: Order Comment: Speci men Type: URINE SPECIMEN Ordering Facility: [facility] Address: [address] [place] [address] Performed By: #### 6 30-4, 27748-6 #### [facility] CLIA [id number] [address] [place] [address] [place] CBC W Auto Differential pane l (Bld)on 11-07-2021 Basophils/100 WBC (Bld) 0.0 % Normal [facility] Comment on above: Order Comment: Speci men Type: URINE SPECIMEN Ordering Facility: [facility] Address: [address] [place], [place] [address] Performed By: #### 6 30-4, 09975-5 #### [facility] CLIA [id number] [address] [place] [address] [place] Differential cell count method Nom (Bld) Manual Normal [facility] Comment on above: Order Comment: Speci men Type: URINE SPECIMEN [facility] Facility: [facility] Address: [address] [place], [place] [id number] Performed By: #### 6 30-4, 98395-1 #### [facility] CLIA [id number] [address] [place] [address] [place] Eosinophils (Bld) [#/Vol] 0.10 10*3/uL Normal <0.46 [facility] Comment on above: Order Comment: Speci men Type: URINE SPECIMEN Ordering Facility: [facility] Address: [address] [place], [place] [address] Performed By: #### 6 30-4, 85661-3 #### [facility] CLIA [id number] [address] [place] [address] [place] Eosinophils/100 WBC (Bld) 1.0 % Normal [facility] Comment on above: Order Comment: Speci men Type: URINE SPECIMEN Ordering Facility: [facility] Address: [address] [place] [address] Performed By: #### 6 30-4, 17321-8 #### [facility] CLIA [id number] [address] [place] [address] [place] Erythrocyte distribution width (RBC) [Ratio] 11.5 % Normal 11.5-15.0 [facility] Comment on above: Order Comment: Speci men Type: URINE SPECIMEN Ordering Facility: [facility] Address: [address] [place], [place] [address] Performed By: #### 6 30-4, 47848-8 #### [facility] CLIA [id number] [address] [place] [address] [place] Hematocrit (Bld) [Volume fraction] 39.8 % Normal 39.0-51.0 [facility] Comment on above: Order Comment: Speci men Type: URINE SPECIMEN Ordering Facility: [facility] Address: [address] [place], [place] [address] Performed By: #### 6 30-4, 59475-1 #### [facility] CLIA [id number] [address] [place] [address] [place] Hemoglobin (Bld) [Mass/Vol] 13.4 g/dL Normal 13.0-17.0 [facility] Comment on above: Order Comment: Speci men Type: URINE SPECIMEN Ordering Facility: [facility] Address: [address] [place] [address] Performed By: #### 6 30-4, 36913-3 #### [facility] CLIA [id number] [address] [place] [address] [place] Lymphocytes (Bld) [#/Vol] 1.67 10*3/uL Normal 1.00-4.00 [facility] Comment on above: Order Comment: Speci men Type: URINE SPECIMEN Ordering Facility: [facility] Address: [address] [place] [address] Performed By: #### 6 30-4, 12307-3 #### [facility] CLIA [id number] [address] [place] [address] [facility] Lymphocytes/100 WBC (Bld) 17.0 % Normal [facility] Comment on above: Order Comment: Speci men Type: URINE SPECIMEN Ordering Facility: [facility] Address: [address] [place] [address] Performed By: #### 6 30-4, 60835-8 #### [facility] CLIA [id number] [address] [place] [address] [place] MCH (RBC) [Entitic mass] 31.5 pg Normal 26.0-34.0 [facility] Comment on above: Order Comment: Speci men Type: URINE SPECIMEN Ordering Facility: [facility] Address: [address] [place] [address] Performed By: #### 6 30-4, 89277-0 #### [facility] CLIA [id number] [address] [place] [address] [place] MCHC (RBC) [Mass/Vol] 33.7 g/dL Normal 30.5-36.0 [facility] Comment on above: Order Comment: Speci men Type: URINE SPECIMEN Ordering Facility: [facility] Address: [address] [place], [place] [address] Performed By: #### 6 30-4, 82303-9 #### [facility] CLIA [id number] [address] [place] [address] [place] MCV (RBC) [Entitic vol] 93.4 fL Normal 80.0-100.0 [facility] Comment on above: Order Comment: Speci men Type: URINE SPECIMEN Ordering Facility: [facility] Address: [address] [place] [address] Performed By: #### 6 30-4, 78024-8 #### [facility] CLIA [id number] [address] [place] [address] [place] Neutrophils (Bld) [#/Vol] 6.29 10*3/uL Normal 1.45-7.50 [facility] Comment on above: Order Comment: Speci men Type: URINE SPECIMEN Ordering Facility: [facility] Address: [address] [place] [address] Performed By: #### 6 30-4, 77099-0 #### [facility] CLIA [id number] [address] [place] [address] [place] Neutrophils/100 WBC (Bld) 64.0 % Normal [facility] Comment on above: Order Comment: Speci men Type: URINE SPECIMEN Ordering Facility: [facility] Address: [address] [place], [place] [id number] Performed By: #### 6 30-4, 03393-3 #### [facility] CLIA [id number] [address] [place] [address] [place] Nucleated RBC/100 WBC (Bld) [Ratio] 0.0 /100 WBC Normal [facility] Comment on above: Order Comment: Speci men Type: URINE SPECIMEN Ordering Facility: [facility] Address: [address] [place] [address] Performed By: #### 6 30-4, 16550-9 #### [facility] CLIA [id number] [address] [place] [address] [place] PLATELET ESTIMATE Adequate Normal [facility] Comment on above: Order Comment: Speci men Type: URINE SPECIMEN Ordering Facility: [facility] Address: [address] [place], [place] [address] Performed By: #### 6 30-4, 43974-8 #### [facility] CLIA [id number] [address] [place] [address] [place] Platelet mean volume (Bld) [Entitic vol] 10.2 fL Normal 9.0-12.7 [facility] Comment on above: Order Comment: Speci men Type: URINE SPECIMEN Ordering Facility: [facility] Address: [address] [place], [place] [address] Performed By: #### 6 30-4, 21315-1 #### [facility] CLIA [id number] [address] [place] [address] [place] Platelets (Bld) [#/Vol] 258 10*3/uL Normal 150-400 [facility] Comment on above: Order Comment: Speci men Type: URINE SPECIMEN Ordering Facility: [facility] Address: [address] [place], [place] [address] Performed By: #### 6 30-4, 99760-4 #### [facility] CLIA [id number] [address] [place] [address] [place] RBC (Bld) [#/Vol] 4.26 10*6/uL Normal 4.20-6.00 [facility] Comment on above: Order Comment: Speci men Type: URINE SPECIMEN Ordering Facility: [facility] Address: [address] [place], [place] [address] Performed By: #### 6 30-4, 85681-9 #### [facility] CLIA [id number] [address] [place] [address] [place] RED CELL MORPH Reviewed: unremarkable Normal [facility] Comment on above: Order Comment: Speci men Type: URINE SPECIMEN Ordering Facility: [facility] Address: [address] [place] [address] Performed By: #### 6 30-4, 14658-2 #### [facility] CLIA [id number] [address] [place] [address] [place] WAM - ABS BASO 0.00 k/uL Normal <0.11 [facility] Comment on above: Order Comment: Speci men Type: URINE SPECIMEN Ordering Facility: [facility] Address: [address] [place] [address] Performed By: #### 6 30-4, 57635-1 #### [facility] CLIA [id number] [address] [place] [address] [place] WAM - ABS MONO 1.77 k/uL High <0.87 [facility] Comment on above: Order Comment: Speci men Type: URINE SPECIMEN Ordering Facility: [facility] Address: [address] [place], [place] [address] Performed By: #### 6 30-4, 48759-6 #### [facility] CLIA [id number] [address] [place] [address] [place] WAM - MONO% 18.0 % Normal [facility] Comment on above: Order Comment: Speci men Type: URINE SPECIMEN Ordering Facility: [facility] Address: [address] [place], [place] [address] Performed By: #### 6 30-4, 93807-5 #### [facility] CLIA [id number] [address] [place] [address] [place] WAM ABSOLUTE NRBC <0.01 Normal <0.01 [facility] Comment on above: Order Comment: Speci men Type: URINE SPECIMEN Ordering Facility: [facility] Address: [address] [place] [address] Performed By: #### 6 30-4, 78865-6 #### [facility] CLIA [id number] [address] [place] [address] [facility] [place] WBC (Bld) [#/Vol] 9.83 10*3/uL Normal 3.70-11.00 [facility] Comment on above: Order Comment: Speci men Type: URINE SPECIMEN Ordering Facility: [facility] Address: [address] [place], [place] [id number] Performed By: #### 6 30-4, 25574-7 #### [facility] CLIA [id number] [address] [place] [address] [place] ED NOTEon 11-07-2021 ED NOTE HNO ID: [id number] Author: Yoshi Schumacher RN Service: ? Author Type: Registered Nurse Type: ED Notes Filed: 11/07/2021 5:14 PM Note Text: Pt provided with discharged instructions. Medications gone over and all questions answered. Pt. Left with steady gait with friend for a ride. [facility] ED NOTE HNO ID: [id number] Author: Flaquita Donnelly RN Service: ? Author Type: Registered Nurse Type: ED Notes Filed: 11/07/2021 1:24 PM Note Text: Pt to ED for urinary retention. Pt had appointment with Urology on Wednesday, but was not able to be seen. Pt denies pain, but reports pressure in the bladder. Pt states he is not able to urinate completely and reports dribbling. [facility] ED PROV NOTEon 11-07-2021 ED PROV NOTE HNO ID: [id number] Author: Keely Gutierrez DO Service: Emergency Medicine [...] this Wednesday with his urologist out of [place] but was notified that his urologist had [...] Abnormal; Notable for the following components: Abs Delta 1.77 (*) <0.87 k/uL All other components [...] cysts one of which is mildly complex. Supervisor Soakers: LIANA Transcribe Date/Time: Nov 07 2021 2:57P Dictated [...] at th (more content not included)... Normal [facility] US KIDNEY/BLADDERon 11-08-19 22 US KIDNEY/BLADDER * * *Final Report* * * DATE OF EXAM: Nov 07 2021 2:52PM [facility] 1055 - US KIDNEY/BLADDER / PROCEDURE REASON: [...] cysts one of which is mildly complex. Supervisor Soakers: LIANA Transcribe Date/Time: Nov 07 2021 2:57P Dictated by : NEHEMIAS COLBERT MD This examination was interpreted and the report reviewed and electronically signed by: NEHEMIAS COLBERT MD on Nov 07 2021 3:09PM EST [id number] Normal [facility] Urinalysis complete panel (U )on 11-07-2021 Bilirubin Ql (U) Negative Normal Negative [facility] Comment on above: Order Comment: Speci men Type: URINE SPECIMEN Ordering Facility: [facility] Address: [address] [place] [address] Performed By: #### 6 30-4, 55933-1 #### [facility] CLIA [id number] [address] [place] [address] [place] [address] [place] Clarity (Unsp spec) Clear Normal Clear [facility] Comment on above: Order Comment: Speci men Type: URINE SPECIMEN Ordering Facility: [facility] Address: [address] [place], [place] [address] Performed By: #### 6 30-4, 44433-5 #### [facility] CLIA [id number] [address] [place] [address] [place] Color (U) Yellow Normal Yellow [facility] Comment on above: Order Comment: Speci men Type: URINE SPECIMEN Ordering Facility: [facility] Address: [address] [place], [place] [address] Performed By: #### 6 30-4, 08270-4 #### [facility] CLIA [id number] [address] [place] [address] [place] Epithelial cells LM.HPF (Urine sed) [#/Area] Few Normal [facility] Comment on above: Order Comment: Speci men Type: URINE SPECIMEN Ordering Facility: [facility] Address: [address] [place], [place] [address] Performed By: #### 6 30-4, 21269-5 #### [facility] CLIA [id number] [address] [place] [address] [place] Glucose Test strip (U) [Mass/Vol] Negative Normal Negative [facility] Comment on above: Order Comment: Speci men Type: URINE SPECIMEN Ordering Facility: [facility] Address: [address] [place], [place] [address] Performed By: #### 6 30-4, 13116-9 #### [facility] CLIA [id number] [address] [place] [address] [place] Hemoglobin Ql (U) Negative Normal Negative [facility] Comment on above: Order Comment: Speci men Type: URINE SPECIMEN Ordering Facility: [facility] Address: [address] [place], [place] [address] Performed By: #### 6 30-4, 78465-3 #### [facility] CLIA [id number] [address] [place] [address] [place] Hyaline casts (Urine sed) [#/Area] 1-3 /LPF Abnormal 0 /LPF [facility] Comment on above: Order Comment: Speci men Type: URINE SPECIMEN Ordering Facility: [facility] Address: [address] [place] [address] Performed By: #### 6 30-4, 24793-0 #### [facility] CLIA [id number] [address] [place] [address] [place] Ketones Ql (U) Trace Abnormal Negative [facility] Comment on above: Order Comment: Speci men Type: URINE SPECIMEN Ordering Facility: [facility] Address: [address] [address] Performed By: #### 6 30-4, 31667-0 #### [facility] CLIA [id number] [address] [place] [address] [place] Leukocyte esterase Test strip Ql (U) Negative Normal Negative [facility] Comment on above: Order Comment: Speci men Type: URINE SPECIMEN Ordering Facility: [facility] Address: [address] [address] Performed By: #### 6 30-4, 79488-2 #### [facility] CLIA [id number] [address] [place] [address] [place] Nitrite Ql (U) Negative Normal Negative [facility] Comment on above: Order Comment: Speci men Type: URINE SPECIMEN Ordering Facility: [facility] Address: [address] [place], [place] [address] Performed By: #### 6 30-4, 97529-3 #### [facility] CLIA [id number] [address] [place] [address] [place] pH (U) 5.5 [pH] Normal 5.0-8.0 [facility] Comment on above: Order Comment: Speci men Type: URINE SPECIMEN Ordering Facility: [facility] Address: [address] [place] [address] Performed By: #### 6 30-4, 52066-8 #### [facility] CLIA [id number] [address] [place] [address] Protein (U) [Mass/Vol] Negative Normal [facility] Comment on above: Order Comment: Speci men Type: URINE SPECIMEN Ordering Facility: [facility] Address: [address] [address] Performed By: #### 6 30-4, 88571-7 #### [facility] CLIA [id number] [address] [place] [address] [place] RBC LM.HPF (Urine sed) [#/Area] 0-3 /HPF Normal 0-3 /HPF [facility] Comment on above: Order Comment: Speci men Type: URINE SPECIMEN Ordering Facility: [facility] Address: [address] [place] [address] Performed By: #### 6 30-4, 94558-9 #### [facility] CLIA [id number] [address] [place] [address] [place] Specific gravity (U) [Rel density] 1.024 Normal 1.005-1.030 [facility] Comment on above: Order Comment: Speci men Type: URINE SPECIMEN Ordering Facility: [facility] Address: [address] [place] [address] Performed By: #### 6 30-4, 12217-7 #### [facility] CLIA [id number] [address] [place] [address] [place] Urobilinogen Ql (U) 0.2 EU/dL Normal 0.2-1.0 EU/dL [facility] Comment on above: Order Comment: Speci men Type: URINE SPECIMEN Ordering Facility: [facility] Address: [address] [place] [address] Performed By: #### 6 30-4, 62492-3 #### [facility] CLIA [id number] [address] [place] [address] [place] WBC LM.HPF (Urine sed) [#/Area] 0-5 /HPF Normal 0-5 /HPF [facility] Comment on above: Order Comment: Speci men Type: URINE SPECIMEN Ordering Facility: [facility] Address: [address] [place] [address] Performed By: #### 6 30-4, 49005-7 #### [facility] CLIA [id number] [address] [place] [address] [place] Ambulatory Visit Summaryon 0 10-28-2021 Ambulatory Visit Summary NORBERTO WASHINGTON :1940 Visit Date:10/28/2021 Ambulatory Visit Instructions Your Diagnosis BPH with urinary obstruction Nocturia Post-void dribbling Incomplete emptying of bladder Urinary incontinence Tests Performed Urnls Dip Stick Auto w/o Microscopy POC 91602 Your Care Team Attending Physician - Paul Cervantes Jr., MD Primary Care Physician - CAMPBELL NARANJO DO [...] Where: [facility] [address] , [place] [address]- Medications What How Much When Instructions Unchanged [...] Urnls Dip Stick Auto w/o Microscopy POC 32816 (10/28/2021) Bilirubin Urine Dipstick - Negative Blood Urine Dipstick - Negative Glucose Urine Dipstick - Negative Ketones Urine Dipstick - Negative Leukocytes Urine Dipstick - Negative Nitrite Urine Dipstick - Negative Protein Urine Dipstick - Negative Specific Lee Urine Dipstick - 1.015 Urine Appearance Urine [...] ? Urina (more content not included)... Normal [facility] Patient Educationon 10-29-19 Patient Education Urology [...] Follow these instructions at home: ? Take hdbn-yye-rrgmois and prescription medicines only as told by [...] You d (more content not included)... Normal [facility] Urology Office/Clinic Noteon 10-28-2021 Urology Office/Clinic [...] management of this change in voiding pattern. [facility] Staff Norberto is here today for a [...] prostatic hyperplasia. Status post TURP x2 in 2020. He has symptoms of outlet obstruction. Possible [...] urine and/or bladder capacity by US- non-imaging 42776 PSA Total Urnls Dip Stick Auto w/o Microscopy POC 17317 Urology Procedure Order 2. Nocturia (R35.1: Nocturia) moderate, Variable 2-5 times per night Ordered: Measure Post Void residual urine and/or bladder capacity by US- non-imaging 90378 PSA Total Urology Procedure Order 3. Post-void dribbling (N39.43: Post-v (more content not included)... Normal [facility] Comment on above: Result Comment: Elec tronically Signed By: Billy Connolly MD, Paul Valdes\.br\Date and Time Signed: 10/28/21 08:47 EDT\.br\Electronically Co-Signed By: Jessie Rivera\.br\Date and Time Co-Signed: 10/28/21 08:39 EDT MICROALBUMIN URINEon 022 Albumin, Urine 5.6 ug/mL Normal Not Estab. [facility] Comment on above: Performed By: #### M ALBLC #### [facility] [address] [place] [address] Dr. Juan Pablo Kaminski US CAROTID ART BILon 10-23-2 022 US CAROTID ART SIMONE EXAMINATION: US [...] SAMY TORRES Date: 2021-10-23 17:19 Normal [facility] CBC AUTO DIFFon 10-21-2021 BASO # 0.0 103/ul Normal 0.0-0.1 [facility] Comment on above: Performed By: #### A 1C #### [facility] [address] [place] [address] Dr. Juan Pablo Kaminski Basophils/100 WBC (Bld) 0.5 % Normal 0.2-2.0 [facility] Comment on above: Performed By: #### A 1C #### [facility] [address] [place] [address] Dr. Juan Pablo Kaminski EO # 0.3 103/ul Normal 0.0-0.7 [facility] Comment on above: Performed By: #### A 1C #### [facility] [address] [place] [address] Dr. Juan Pablo Kaminski Eosinophils/100 WBC (Bld) 3.6 % Normal 0.9-7.0 [facility] Comment on above: Performed By: #### A 1C #### [facility] [address] [place] [address] Dr. Juan Pablo Kaminski Erythrocyte distribution width (RBC) [Ratio] 11.1 % Normal 11.0-15.0 [facility] Comment on above: Performed By: #### A 1C #### [facility] [address] [place] [address] Dr. Juan Pablo Kaminski Hematocrit (Bld) [Volume fraction] 41.8 % Critically low 42.0-54.0 [facility] Comment on above: Performed By: #### A 1C #### [facility] [address] [place] [address] Dr. Juan Pablo Kaminski Hemoglobin (Bld) [Mass/Vol] 14.1 g/dL Normal 14.0-18.0 [facility] Comment on above: Performed By: #### A 1C #### [facility] [address] [place] [address] Dr. Juan Pablo Kaminski IG # 0.03 10e3/ul Normal 0.00-0.03 [facility] Comment on above: Performed By: #### A 1C #### [facility] [address] [place] [address] Dr. Juan Pablo Kaminski IG % 0.4 % Normal 0.0-0.5 [facility] Comment on above: Performed By: #### A 1C #### [facility] [address] [place] [address] Dr. Juan Pablo Kaminski LYMPH # 2.2 103/ul Normal 1.2-3.8 [facility] Comment on above: Performed By: #### A 1C #### [facility] [address] [place] [address] Dr. Juan Pablo Kaminski Lymphocytes/100 WBC (Bld) 29.4 % Normal 20.5-60.0 [facility] Comment on above: Performed By: #### A 1C #### [facility] [address] [place] [address] Dr. Juan Pablo Kaminski MANUAL DIFF REQ NO Normal [facility] Comment on above: Performed By: #### A 1C #### [facility] [address] [place] [address] [address] Juan Pablo Kaminski MCH (RBC) [Entitic mass] 31.8 pg Normal 25.9-34.0 [facility] Comment on above: Performed By: #### A 1C #### [facility] [address] [place] [address] Dr. Juan Pablo Kaminski MCHC (RBC) [Mass/Vol] 33.7 g/dL Normal 29.9-35.2 [facility] Comment on above: Performed By: #### A 1C #### [facility] [address] [place] [address] Dr. Juan Pablo Kaminski MCV (RBC) [Entitic vol] 94.1 fL Critically high 80.0-94.0 [facility] Comment on above: Performed By: #### A 1C #### [facility] [address] [place] [address] Dr. Juan Pablo Kaminski MONO # 0.9 103/ul Critically high 0.3-0.8 [facility] Comment on above: Performed By: #### A 1C #### [facility] [address] [place] [address] Dr. Juan Pablo Kaminski Monocytes/100 WBC (Bld) 11.7 % Normal 1.7-12.0 [facility] Comment on above: Performed By: #### A 1C #### [facility] [address] [place] [address] Dr. Juan Pablo Kaminski NEUT # 4.0 103/ul Normal 1.4-6.5 [facility] Comment on above: Performed By: #### A 1C #### [facility] [address] [place] [address] Dr. Juan Pablo Kaminski Neutrophils/100 WBC (Bld) 54.4 % Normal 43.0-75.0 [facility] [facility] Comment on above: Performed By: #### A 1C #### [facility] [address] [place] [address] Dr. Juan Pablo Kaminski Platelet mean volume (Bld) [Entitic vol] 8.6 fL Critically low 9.5-13.5 [facility] Comment on above: Performed By: #### A 1C #### [facility] [address] [address] [address] Juan Pablo Kamniski PLT 231 103/ul Normal 150-450 [facility] Comment on above: Performed By: #### A 1C #### [facility] [address] [place] [address] Dr. Juan Pablo Kaminski RBC 4.44 106/ul Critically low 4.70-6.10 [facility] Comment on above: Performed By: #### A 1C #### [facility] [address] [place] [address] Dr. Juan Pablo Kaminski WBC 7.3 103/ul Normal 4.0-11.0 [facility] Comment on above: Performed By: #### A 1C #### [facility] [address] [place] [address] Dr. Juan Pablo Kaminski DIRECT LDLon 10-21-2021 Cholesterol in LDL [Mass/Vol] 106 mg/dL Normal [facility] Comment on above: Performed By: #### A LT, BMP, DLDL #### [facility] [address] [place] [address] Dr. Juan Pablo Kaminski DLDL NORMAL SEE BELOW Normal [facility] Comment on above: Result Comment: <100 mg/dl OPTIMAL 100 - 129 mg/dl NEAR OR ABOVE OPTIMAL 130 - 159 mg/dl BORDERLINE HIGH 160 - 189 mg/dl HIGH >190 mg/dl VERY HIGH Performed By: #### A LT, BMP, DLDL #### [facility] [address] [place] [address] Dr. Juan Pablo Kaminski GLYCOHEMOGLOBIN A1Con 2021 ADA RECOMMENDATION SEE BELOW Normal [facility] Comment on above: Result Comment: ADA RECOMMENDED LIMIT 4.0 - 6.0 ADA THERAPEUTIC TARGET < 7.0 ACTION SUGGESTED > 7.0 Performed By: #### A 1C #### [facility] [address] [place] [address] Dr. Juan Pablo Kaminski Glucose [Mass/Vol] 120 mg/dL Normal [facility] Comment on above: Performed By: #### A 1C #### [facility] [address] [place] [address] Dr. Juan Pablo Kaminski HbA1c (Bld) [Mass fraction] 5.8 % Normal 4.5-6.2 [facility] Comment on above: Performed By: #### A 1C #### [facility] [address] [place] [address] Dr. Juan Pablo Kaminski PROF CHEM 8 (BAS METB)on Anion gap [Moles/Vol] 12.7 mmol/L Normal [facility] Comment on above: Performed By: #### A 1C #### [facility] [address] [place] [address] Dr. Juan Pablo Kaminski Calcium [Mass/Vol] 8.7 mg/dL Normal 8.5-10.1 [facility] Comment on above: Performed By: #### A 1C #### [facility] [address] [place] [address] Dr. Juan Pablo Kaminski Chloride [Moles/Vol] 98 mmol/L Normal 98-107 [facility] Comment on above: Performed By: #### A 1C #### [facility] [address] [place] [address] Dr. Juan Pablo Kaminski CO2 [Moles/Vol] 28.0 mmol/L Normal 21.0-32.0 [facility] Comment on above: Performed By: #### A 1C #### [facility] [address] [place] [address] Dr. Juan Pablo Kaminski Creatinine [Mass/Vol] 1.07 mg/dL Normal 0.70-1.30 [facility] Comment on above: Performed By: #### A 1C #### [facility] [address] [place] [address] Dr. Juan Pablo Kaminski EGFR-AF SAMMARINESE >60 Normal >=60 [facility] Comment on above: Performed By: #### A 1C #### [facility] [address] [place] [address] Dr. Juan Pablo Kaminski EGFR-NON AF SAMMARINESE >60 Normal >=60 [facility] Comment on above: Performed By: #### A 1C #### [facility] [address] [place] [address] Dr. Juan Pablo Kaminski Glucose [Mass/Vol] 133 mg/dL Critically high 74-106 [facility] Comment on above: Performed By: #### A 1C #### [facility] [address] [place] [address] Dr. Juan Pablo Kaminski Potassium [Moles/Vol] 4.7 mmol/L Normal 3.5-5.1 [facility] Comment on above: Performed By: #### A 1C #### [facility] [address] [place] [address] Dr. Juan Pablo Kaminski Sodium [Moles/Vol] 134 mmol/L Critically low 136-145 [facility] Comment on above: Performed By: #### A 1C #### [facility] [address] [place] [address] Dr. Juan Pablo Kaminski Urea nitrogen [Mass/Vol] 17.0 mg/dL Normal 7.0-18.0 [facility] Comment on above: Performed By: #### A 1C #### [facility] [address] [place] [address] Dr. Juan Pablo Kaminski Urea nitrogen/Creatinine [Mass ratio] 15.9 mg/mg Normal [facility] Comment on above: Performed By: #### A 1C #### [facility] [address] [place] [address] Dr. [facility] ALT [Catalytic activity/Vol] 31 U/L Normal 16-63 [facility] Comment on above: Performed By: #### A 1C #### [facility] [address] [place] [address] Dr. Juan Pablo Kaminski GLYCOHEMOGLOBIN A1Con 2021 ADA RECOMMENDATION SEE BELOW Normal [facility] Comment on above: Result Comment: ADA RECOMMENDED LIMIT 4.0 - 6.0 ADA THERAPEUTIC TARGET < 7.0 ACTION SUGGESTED > 7.0 Performed By: #### A 1C #### [facility] [address] [place] [address] Dr. Juan Pablo Kaminski Glucose [Mass/Vol] 131 mg/dL Normal [facility] Comment on above: Performed By: #### A 1C #### [facility] [address] [place] [address] Dr. Juan Pablo Kaminski HbA1c (Bld) [Mass fraction] 6.2 % Normal 4.5-6.2 [facility] Comment on above: Performed By: #### A 1C #### [facility] [address] [address] [address] Juan Pablo Kaminski Vital Signs Date Time Vital Sign Value Performing Clinician Faci lity 03-17-2023 10:30-0500 Body height 190.5 cm Campbell Ball Other [facility] Other 03-17-2023 10:30-0500 Body mass index (BMI) [Ratio] 27.55 kg/m2 Campbell Ball Other [facility] Other 03-17-2023 10:30-0500 Body weight 99.97 kg Campbell Ball Other [facility] Other 03-17-2023 10:30-0500 Diastolic blood pressure 67 mm[Hg] Campbell Ball Other [facility] Other 03-17-2023 10:30-0500 Respiratory rate 12 /min Campbell Ball Other [facility] Other 03-17-2023 10:30-0500 Systolic blood pressure 159 mm[Hg] Campbell Ball Other [facility] Other 02-23-2023 09:30-0500 Body height 190.5 cm Campbell Ball Other [facility] Other 02-23-2023 09:30-0500 Body mass index (BMI) [Ratio] 28.02 kg/m2 Campbell Ball Other [facility] Other 02-23-2023 09:30-0500 Body weight 101.7 kg Campbell Ball Other [facility] Other 02-23-2023 09:30-0500 Diastolic blood pressure 78 mm[Hg] Campbell Ball Other [facility] Other 02-23-2023 09:30-0500 Respiratory rate 12 /min Campbell Ball Other [facility] Other 02-23-2023 09:30-0500 Systolic blood pressure 157 mm[Hg] Campbell Ball Other [facility] Other 02-19-2023 10:45-0500 Body height 190.5 cm Campbell Ball Other [facility] Other 02-19-2023 10:45-0500 Body mass index (BMI) [Ratio] 28 kg/m2 Campbell Ball Other [facility] Other 02-19-2023 10:45-0500 Body weight 101.61 kg Campbell Ball Other [facility] Other 02-19-2023 10:45-0500 Diastolic blood pressure 72 mm[Hg] Campbell Ball Other [facility] Other 02-19-2023 10:45-0500 Respiratory rate 12 /min Campbell Ball Other [facility] Other 02-19-2023 10:45-0500 Systolic blood pressure 144 mm[Hg] Campbell Ball Other [facility] Other 02-02-2023 13:37-0500 Body weight 102.06 kg Leticia Milian APRN.HEARSE DRIVER Work Phone: [facility] 02-02-2023 13:37-0500 Diastolic blood pressure 70 mm[Hg] Leticia Rukhsana BOOGIEHEARSE DRIVER Work Phone: [facility] 02-02-2023 13:37-0500 Heart rate 65 /min Leticia Milian OSTEOPATHIC RESIDENT.HEARSE DRIVER Work Phone: [facility] 02-02-2023 13:37-0500 Systolic blood pressure 146 mm[Hg] Leticia Milian OSTEOPATHIC RESIDENT.HEARSE DRIVER Work Phone: [facility] 09-22-2022 12:15-0400 Body height 190.5 cm Campblel Ball Other [facility] Other 09-22-2022 12:15-0400 Diastolic blood pressure 82 mm[Hg] Campbell Ball Other [facility] Other 09-22-2022 12:15-0400 Systolic blood pressure 135 mm[Hg] Campbell Ball Other [facility] Other 09-17-2022 09:00-0400 Body height 190.5 cm Campbell Ball Other [facility] Other 09-17-2022 09:00-0400 Body mass index (BMI) [Ratio] 27.57 kg/m2 Campbell Ball Other [facility] Other 09-17-2022 09:00-0400 Body weight 100.06 kg Campbell Ball Other [facility] Other 09-17-2022 09:00-0400 Diastolic blood pressure 62 mm[Hg] Campbell Ball Other [facility] Other 09-17-2022 09:00-0400 Respiratory rate 12 /min Campbell Ball Other [facility] Other 09-17-2022 09:00-0400 Systolic blood pressure 128 mm[Hg] Campbell Ball Other [facility] Other 06-18-2022 10:00-0400 Body height 190.5 cm Campbell Ball Other [facility] Other 06-18-2022 10:00-0400 Body mass index (BMI) [Ratio] 28.02 kg/m2 Campbell Ball Other [facility] Other 06-18-2022 10:00-0400 Body weight 101.7 kg Campbell Ball Other [facility] Other 06-18-2022 10:00-0400 Diastolic blood pressure 62 mm[Hg] Campbell Ball Other [facility] Other 06-18-2022 10:00-0400 Respiratory rate 12 /min Campbell Ball Other [facility] Other 06-18-2022 10:00-0400 Systolic blood pressure 119 mm[Hg] Campbell Ball Other [facility] Other 04-08-2022 12:00-0500 Body height 190.5 cm Campbell Ball Other [facility] Other 04-08-2022 12:00-0500 Body mass index (BMI) [Ratio] 27.82 kg/m2 Campbell Ball Other [facility] Other 04-08-2022 12:00-0500 Body temperature 97.1 [degF] Campbell Ball Other [facility] Other 04-08-2022 12:00-0500 Body weight 100.97 kg Campbell Ball Other [facility] Other 04-08-2022 12:00-0500 Diastolic blood pressure 68 mm[Hg] Campbell Ball Other [facility] Other 04-08-2022 12:00-0500 SaO2% (BldA) [Mass fraction] 97 % Campbell Ball Other [facility] Other 04-08-2022 12:00-0500 Systolic blood pressure 124 mm[Hg] Campbell Ball Other [facility] Other 03-20-2022 10:00-0500 Body height 190.5 cm Campbell Ball Other [facility] Other 03-20-2022 10:00-0500 Body mass index (BMI) [Ratio] 27.95 kg/m2 Campbell Ball Other [facility] Other 03-20-2022 10:00-0500 Body weight 101.42 kg Campbell Ball Other [facility] Other 03-20-2022 10:00-0500 Diastolic blood pressure 60 mm[Hg] Campbell Ball Other [facility] Other 03-20-2022 10:00-0500 Respiratory rate 12 /min Campbell Ball Other [facility] Other 03-20-2022 10:00-0500 Systolic blood pressure 112 mm[Hg] Campbell Ball Other [facility] Other 01-08-2022 08:47-0400 Body weight 97.52 kg Leonard Dugan MD Work Phone: [facility] 01-08-2022 08:47-0400 Diastolic blood pressure 61 mm[Hg] Leonard Dugan MD Work Phone: [facility] 01-08-2022 08:47-0400 Heart rate 72 /min Leonard Dugan MD Work Phone: [facility] 01-08-2022 08:47-0400 Systolic blood pressure 139 mm[Hg] Leonard Dugan MD Work Phone: [facility] 12-26-2021 08:32-0400 Body temperature 98 [degF] DO Campbell Ball Work Phone: [facility] 12-26-2021 08:32-0400 Diastolic blood pressure 62 mm[Hg] DO Campbell Ball Work Phone: [facility] 12-26-2021 08:32-0400 Heart rate 75 /min DO Campbell Ball Work Phone: [facility] 12-26-2021 08:32-0400 Respiratory rate 18 /min DO Campbell Ball Work Phone: [facility] 12-26-2021 08:32-0400 SaO2% (BldA) [Mass fraction] 98 % DO Campbell Ball Work Phone: [facility] 12-26-2021 08:32-0400 Systolic blood pressure 146 mm[Hg] DO Campbell Ball Work Phone: [facility] 12-17-2021 16:22-0400 Body height 190.5 cm DO Campbell Ball Work Phone: [facility] 12-17-2021 16:22-0400 Body weight 97.52 kg DO Campbell Ball Work Phone: [facility] 12-17-2021 16:19-0400 Body temperature 98.4 [degF] DO Campbell Ball Work Phone: [facility] 12-17-2021 16:19-0400 Diastolic blood pressure 63 mm[Hg] DO Campbell Ball Work Phone: [facility] 12-17-2021 16:19-0400 Heart rate 66 /min DO Campbell Ball Work Phone: [facility] 12-17-2021 16:19-0400 Respiratory rate 16 /min DO Campbell Ball Work Phone: [facility] 12-17-2021 16:19-0400 SaO2% (BldA) [Mass fraction] 96 % DO Campbell Ball Work Phone: [facility] 12-17-2021 16:19-0400 Systolic blood pressure 135 mm[Hg] DO Campbell Ball Work Phone: [facility] 12-16-2021 14:41-0400 Diastolic blood pressure 62 mm[Hg] Leonard Dugan MD Work Phone: [facility] 12-16-2021 14:41-0400 Heart rate 69 /min Leonard Dugan MD Work Phone: [facility] 12-16-2021 14:41-0400 Respiratory rate 16 /min Leonard Dugan MD Work Phone: [facility] 12-16-2021 14:41-0400 Systolic blood pressure 141 mm[Hg] Leonard Dugan MD Work Phone: [facility] 12-11-2021 18:25-0400 Body temperature 97.5 [degF] DO Campbell Ball Work Phone: [facility] 12-11-2021 18:25-0400 Diastolic blood pressure 88 mm[Hg] DO Campbell Ball Work Phone: [facility] 12-11-2021 18:25-0400 Heart rate 67 /min DO Campbell Ball Work Phone: [facility] 12-11-2021 18:25-0400 Respiratory rate 20 /min DO Campbell Ball Work Phone: [facility] 12-11-2021 18:25-0400 SaO2% (BldA) [Mass fraction] 99 % DO Campbell Ball Work Phone: [facility] 12-11-2021 18:25-0400 Systolic blood pressure 175 mm[Hg] DO Campbell Ball Work Phone: [facility] 12-11-2021 16:57-0400 Body height 190.5 cm DO Campbell Ball Work Phone: [facility] 12-11-2021 16:57-0400 Body weight 98.5 kg DO Campbell Ball Work Phone: [facility] 12-10-2021 10:50-0400 Body weight 95.25 kg Nurse Emelia Work Phone: [facility] 12-10-2021 10:50-0400 Diastolic blood pressure 80 mm[Hg] Nurse Emelia Work Phone: [facility] 12-10-2021 10:50-0400 Heart rate 59 /min Nurse Emelia Work Phone: [facility] 12-10-2021 10:50-0400 Systolic blood pressure 152 mm[Hg] Nurse Emelia Work Phone: [facility] 12-09-2021 14:27-0400 Body weight 95.25 kg [employer] Work Phone: [facility] 12-09-2021 14:27-0400 Diastolic blood pressure 68 mm[Hg] [employer] Work Phone: [facility] 12-09-2021 14:27-0400 Heart rate 70 /min [employer] Work Phone: [facility] 12-09-2021 14:27-0400 Systolic blood pressure 164 mm[Hg] [employer] Work Phone: [facility] 11-12-2021 11:23-0400 Body weight 96.16 kg Leonard Dugan MD Work Phone: [facility] 11-12-2021 11:23-0400 Diastolic blood pressure 73 mm[Hg] Leonard Dugan MD Work Phone: [facility] 11-12-2021 11:23-0400 Heart rate 56 /min Leonard Dugan MD Work Phone: [facility] 11-12-2021 11:23-0400 Systolic blood pressure 162 mm[Hg] Leonard Dugan MD Work Phone: [facility] Encounters Encounter Date Encounter Type Care Provider Facility Start: 03-17-2023 End: 03-17-2023 ambulatory Campbell Naranjo Other [facility] Other Start: 03-17-2023 Transitional care manage srvc 14 day discharge Campbell Naranjo [facility] Start: 03-04-2023 End: 03-04-2023 ambulatory Campbell Naranjo Other [facility] Other Start: 03-04-2023 Telephone encounter [facility] Start: 02-23-2023 End: 02-23-2023 ambulatory Campbell Naranjo Other [facility] Other Start: 02-23-2023 Office outpatient vi sit 15 minutes Campbell Naranjo [facility] Start: 02-23-2023 Telephone encounter aCmpbell Naranjo [facility] Start: 02-19-2023 End: 02-19-2023 ambulatory Campbell Naranjo Other [facility] Other Start: 02-19-2023 Office outpatient vi sit 15 minutes Campbell Naranjo [facility] Start: 02-02-2023 End: 02-02-2023 ambulatory LETICIA MILIAN [facility] Start: 02-02-2023 End: 02-02-2023 Patient encounter procedure Leticia Milian OSTEOPATHIC RESIDENT.HEARSE DRIVER Work Phone: Urology Comment on above: BPH with obstruction /lower urinary tract symptoms (Primary Dx); Recurrent UTI; Weak urinary stream Start: 01-19-2023 End: 01-19-2023 ambulatory LETICIA MILIAN [facility] Start: 01-13-2023 End: 01-13-2023 Emergency department patient visit Campbell Naranjo Facility:[facility] Start: 01-13-2023 End: 01-13-2023 Emergency department patient visit DO Campbell Naranjo Work Phone: [facility] Work Phone: Start: 12-21-2022 End: 12-21-2022 ambulatory Campbell Naranjo Other [facility] Other Start: 12-21-2022 Telephone encounter Campbell Ro [facility] Start: 09-22-2022 End: 09-22-2022 ambulatory Campbell Naranjo Other [facility] Other Start: 09-22-2022 Office outpatient vi sit 15 minutes Campbell Quentin [facility] Start: 09-20-2022 End: 09-20-2022 ambulatory Cornell Baptiste Other [facility] Other Start: 09-20-2022 Encounter by [employer] raissa Baptiste [facility] Start: 09-17-2022 End: 09-17-2022 ambulatory Campbell Naranjo Other [facility] Other Start: 09-17-2022 Office outpatient vi sit 25 minutes Campbell Naranjo [facility] Start: 09-15-2022 End: 09-15-2022 ambulatory Cornell Baptiste Other [facility] Other Start: 09-15-2022 Encounter by [employer] raissa Baptiste [facility] Start: 07-28-2022 End: 07-28-2022 ambulatory LETICIA MILIAN Facility[facility] Start: 07-20-2022 End: 07-20-2022 ambulatory LETICIA MILIAN Facility[facility] Start: 06-25-2022 End: 06-26-[address] CAMPBELL NARANJO Facility:[facility] Start: 06-18-2022 End: 06-18-2022 ambulatory Campbell Naranjo Other [facility] Other Start: 06-18-2022 Office outpatient vi sit 25 minutes Campbell Quentin [facility] Start: 06-02-2022 End: 06-03-[address] CAMPBELL NARANJO Facility:[facility] Start: 04-08-2022 End: 04-08-2022 ambulatory Campbell Naranjo Other [facility] Other Start: 04-08-2022 Office outpatient vi sit 15 minutes Campbell Naranjo [facility] Start: 03-24-2022 End: 03-24-2022 ambulatory Campbell Naranjo Other [facility] [employer] Other Start: 03-24-2022 Telephone encounter Campbell Naranjo [facility] Start: 03-20-2022 Office outpatient vi sit 25 minutes Campbell Naranjo [facility] Start: 03-20-2022 End: 03-21-[address] CAMPBELL NARANJO [facility] [employer] Other Start: 01-08-2022 End: 01-08-2022 Patient encounter procedure Leonard Dugan MD Work Phone: Urology Comment on above: Chronic epididymitis (Primary Dx); Left hydrocele; Weak urinary stream; BPH without obstruction/lower urinary tract symptoms; Epididymitis Start: 01-07-2022 Refill Leonard Dugan MD Work Phone: Urology Comment on above: Refill Request Start: 12-26-2021 End: 12-26-2021 ambulatory DO Campbell Naranjo Work Phone: [facility] Work Phone: Start: 12-26-2021 End: 12-26-2021 Discharged Recurring DO Campbell Naranjo Work Phone: [facility] Start: 12-25-2021 End: 12-26-[address] CAMPBELL NARANJO Facility: Start: 12-17-2021 End: 12-17-2021 Emergency department patient visit DO Campbell Naranjo Work Phone: [facility] Start: 12-16-2021 End: 12-16-2021 Patient encounter procedure Leonard Dugan MD Work Phone: Urology Comment on above: Retention of urine ( Primary Dx); Flaccid bladder Start: 12-15-2021 Telephone encounter Leticia puentes APRN.CNP Work Phone: Urology Comment on above: Patient Update Start: 12-11-2021 End: 12-11-2021 Emergency department patient visit DO Campbell Naranjo Work Phone: [facility] Start: 12-11-2021 Telephone encounter Leonard Dugan MD Work Phone: Urology Comment on above: Patient Update Start: 12-10-2021 End: 12-10-2021 Nursing evaluation of patient and report Nurse [facility] Emelia Work Phone: Urology Comment on above: Urinary tract infect ion without hematuria, site unspecified (Primary Dx); Feeling of incomplete bladder emptying; Benign prostatic hyperplasia with urinary retention Start: 12-09-2021 End: 12-09-2021 Nursing evaluation of patient and report [employer] Work Phone: Urology Comment on above: Urinary frequency (P rimary Dx); Urinary urgency; Urinary straining; Feeling of incomplete bladder emptying Start: 12-08-2021 Telephone encounter Leonard Dugan MD Work Phone: Urology Comment on above: Appointment (Resched ule catheter change) Start: 11-26-2021 End: 11-27-2021 Emergency department patient visit CAMPBELL NARANJO Facility:[facility] Start: 11-21-2021 Telephone encounter Leonard Dugan MD Work Phone: Urology Comment on above: [place] Cath Problem; Hematuria Start: 11-19-2021 End: 11-19-[address] ROBIN BAPTISTE Facility:[facility] Start: 11-12-2021 End: 11-12-2021 Patient encounter procedure Leonard Dugan MD Work Phone: Urology Comment on above: BPH with obstruction /lower urinary tract symptoms (Primary Dx); Benign prostatic hyperplasia with urinary retention Start: 11-10-2021 Chart abstracting Leonard Sanderson Work Phone: Urology Start: 11-07-2021 End: 11-07-2021 Emergency department patient visit RAN LEES JR Facility:[facility] Start: 10-23-2021 End: 10-24-[address] CAMPBELL NARANJO Facility:[facility] Start: 10-21-2021 End: 10-22-[address] CAMPBELL NARANJO Facility:[facility] Start: 10-20-2021 Adult health examination Campbell Naranjo Other [facility] Other Start: 07-17-2021 End: 07-18-[address] CAMPBELL NARANJO Facility: Start: 01-09-2020 End: 01-09-2020 Pre-procedure evaluation check Campbell Naranjo Other [facility] [employer] Other Procedures Date Procedure Procedure Detail Performing Clinician Start: 10-14-2021 Depression screening Be juarez Quentin Other Start: 03-23-2016 Screening for malign ant neoplasm of colon Campbell Naranjo Other Start: 01-30-2015 Screening for malign ant neoplasm of prostate Campbell Quentin Other Urine culture DO Campbell Huang scar Work Phone: Urine culture DO Campbell Huang scar Work Phone: Urine culture DO Campbell Huang scar Work Phone: Plan of Treatment Date Care Activity Detail Author Start: 12-28-2022 Urine microalbumin profile DTaP,Tdap,Td Vaccine (3 - Tdap) [facility] Start: 11-13-2022 Covid-19 Vaccine ( season) Covid-19 Vaccine ( season) [facility] Start: 03-15-2022 Advance Directive Discussion Advance Directive Discussion [facility] Start: 03-15-2022 Depression Assessment Depression Ass essment [facility] Start: 01-08-2022 End: 03-10-2022 Bacteria identified in Urine by Culture URINE CULTURE Microbiology Routine Left hydrocele Chronic epididymitis Weak urinary stream BPH without obstruction/lower urinary tract symptoms Epididymitis Expected: 01/08/2022 (Approximate), Expires: 03/10/2022 [facility] Work Phone: Comment on above: Expected: 01/08/2022 (Approximate), Expires: 03/10/2022 Start: 01-08-2022 End: 03-10-2022 URINALYSIS, REFLEX MICROSCOPIC URINALYSIS, REFLEX MICROSCOPIC Lab Routine Left hydrocele Chronic epididymitis Weak urinary stream BPH without obstruction/lower urinary tract symptoms Epididymitis Expected: 01/08/2022 (Approximate), Expires: 03/10/2022 [facility] Work Phone: Comment on above: Expected: 01/08/2022 (Approximate), Expires: 03/10/2022 Start: 12-10-2021 End: 02-09-2022 Bacteria identified in Urine by Culture URINE CULTURE Microbiology Routine Urinary tract infection without hematuria, site unspecified Expected: 12/10/2021, Expires: 02/09/2022 [facility] Work Phone: Comment on above: Expected: 12/10/2021 , Expires: 02/09/2022 Start: 11-13-2021 Influenza vaccination INFLUENZA (#1) [facility] Start: 11-12-2021 URODYNAMICS URODYNAMICS Pr ocedures Routine 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 Expected: 11/12/2021 (Approximate) [facility] Work Phone: Comment on above: Expected: 11/12/2021 (Approximate) Start: 08-11-2021 COVID-19 VACCINE (5 - Booster for Pfizer series) COVID-19 VACCINE (5 - Booster for Pfizer series) [facility] Start: 03-15-2021 ADVANCE DIRECTIVE DISCUSSION ADVANCE DIRECTIVE DISCUSSION [facility] Start: 03-15-2021 DEPRESSION ASSESSMENT DEPRESSION ASS ESSMENT [facility] Start: 05-26-2012 3 comp foot exam completed DIABETIC FOOT EXAM [facility] Start: 1998 Hepatitis B Vaccine (1 of 3 - Risk 3-dose series) Hepatitis B Vaccine (1 of 3 - Risk 3-dose series) [facility] Start: 1998 RSV Vaccine (1 - 1-d ose 60+ series) RSV Vaccine (1 - 1-dose 60+ series) [facility] Start: 1988 SHINGRIX VACCINE (1 of 2) SHINGRIX VACCINE (1 of 2) [facility] Start: 1957 Urine microalbumin profile DTAP,TDAP,TD (1 - Tdap) [facility] Start: 1956 Hepatitis B surface antibody level LDL CHOLESTEROL [facility] Start: 1948 Hepatitis B screening URINE ALBUMIN:CREATININE RATIO [facility] Start: 1948 Hepatitis C antibody , confirmatory test DILATED RETINAL EXAM [facility] Start: 1944 PNEUMOCOCCAL: 65+ (1 - PCV) PNEUMOCOCCAL: 65+ (1 - PCV) [facility] Start: 1943 Hemoglobin A1c/Hemoglobin.total in Blood HBA1C [facility] Bacteria identified in Urine by Culture [facility] End: 02-02-2024 Bacteria identified in Urine by Culture URINE CULTURE Microbiology Routine Recurrent UTI 5 Occurrences starting 02/02/2023 until 02/02/2024 [facility] Work Phone: Comment on above: 5 Occurrences starti ng 02/02/2023 until 02/02/2024 Patient Education [facility] Work Phone: Patient referral [facility] Work Phone: End: 01-14-2024 Urinalysis complete panel - Urine URINALYSIS, WITH MICROSCOPIC Lab Routine Recurrent UTI 5 Occurrences starting 02/02/2023 until 01/14/2024 [facility] Work Phone: Comment on above: 5 Occurrences starti ng 02/02/2023 until 01/14/2024 [facility] Immunizations Immunization Date Immunization Notes Care Provider Jens eid 12-01-2022 influenza, high dose seasonal, preservative-free Campbell Naranjo Other [facility] Other 12-19-2021 influenza virus vaccine, split virus (incl. purified surface antigen) Campbell Naranjo Other [facility] Other 12-10-2020 influenza virus vaccine, split virus (incl. purified surface antigen) Campbell Naranjo Other [facility] Other 01-09-2020 influenza virus vaccine, split virus (incl. purified surface antigen) Campbell Naranjo Other [facility] Other 01-14-2018 influenza virus vaccine, split virus (incl. purified surface antigen) Campbell Naranjo Other [facility] Other 12-30-2016 influenza virus vaccine, split virus (incl. purified surface antigen) Campbell Naranjo Other [facility] Other 03-16-2016 influenza virus vaccine, split virus (incl. purified surface antigen) Campbell Naranjo Other [facility] Other 05-01-2015 pneumococcal conjuga te vaccine, 13 valent Campbell Naranjo Other [facility] Other 05-01-2015 pneumococcal Conjuga te, unspecified formulation; Translations: [Need for prophylactic vaccination against Streptococcus pneumoniae (pneumococcus)] Campbell Naranjo Other [facility] Other 12-28-2012 tetanus and diphther ia toxoids, adsorbed, preservative free, for adult use (5 Lf of tetanus toxoid and 2 Lf of diphtheria toxoid) Campbell Naranjo Other [facility] Other 01-28-2012 diphtheria, tetanus toxoids and acellular pertussis vaccine, unspecified formulation Campbell Naranjo Other [facility] Other 01-20-2012 pneumococcal polysaccharide vaccine, 23 valent Campbell Naranjo Other [facility] Other 05-18-2011 pneumococcal polysaccharide vaccine, 23 valent Campbell Naranjo Other [facility] Other Payers Date Payer Category Payer Self-pay 2016 Unknown [employer]RISTIN [employer]INAS SUPPLEMENT [id number] 2016-Present [phone] [address] [place] [address] Indemnity [id number] 2003 Medicare MEDICARE MEDICAR E A AND B [id number] 2003-Present [phone] [address] [address] [place] [address] Medicare [id number] 1959 Medicare [id number] 1959 Medicare [id number] 1938 Unknown [id number] 3 1938 Unknown [id number] 3 1938 Unknown [id number] 3 1938 Unknown [id number] 3 1938 Unknown [id number] 3 1938 Unknown [id number] 3 1938 Unknown [id number] 3 1938 Unknown [id number] 3 Medicare Medicare Outpatient [id number] Unknown [facility] [id number] Unknown [id number] 1 Social History Date Type Detail Facility Start: 10-24-2009 End: 12-16-2021 Tobacco smoking status NHIS Ex-smoker [facility] End: 03-15-1971 History of tobacco use Current smoker [facility] End: 01-01-1972 History of tobacco use Cigarette Smoker [facility] Start: 10-24-2009 End: 07-28-2022 Cigarettes smoked current (pack per day) - Reported 1.5 [facility] Start: 11-07-2021 End: 12-16-2021 Alcohol intake Current drinker of alcohol (finding) [facility] Start: 1940 Sex Assigned At Not on file C [facility] Start: 10-28-2021 End: 01-08-2022 Exposure to SARS-CoV-2 (event) Not sure [facility] Start: 12-11-2021 End: 12-17-2021 Tobacco smoking status NHIS Never smoked tobacco (finding) [facility] Start: 1940 Sex Assigned At Male F [facility] Start: 12-16-2021 Tobacco use and exposure Smokeless tobacco non-user [facility] Start: 12-16-2021 End: 07-28-2022 Sex Assigned At [facility] [employer] Other National Score (1-10 0), lower number is lower risk 61 [facility] Medical Equipment Procedure Code Equipment Code Equipment Origin al Text Equipment Identifier Dates Start: 10-23-2021 Comment on above: TEST HOME BLOOD SUGA R ONCE A DAY USE TO TEST HOME BLO OD SUGAR ONCE A DAY Clinical Notes 11-10-2021 to 03-17-2023 Note Date & Type Note Facility 03-17-2023 Evaluation note Encounter Date Diagnosis Assessment Notes Mar, Foot abscess, right (ICD-10 - L02.611) Debrided and dressing applied by wound clinic Podiatric evaluation and consultation completed. Strong PT pulse w/ decreased sensation. Instructed to inspect foot daiy - home health consulted to assist in monitoring wound - home health will be changing bandages routinely f/u Wound clinic Mar, Cellulitis of right lower extremity (ICD-10 - L03.115) Received IV antibiotics, followed by Doxycycline. Complete course of antibiotics w/o interruption. 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 Mar, Primary hypertension (ICD-10 - I10) d/c Amlodipine due to lightheadedness w/ PAUL and Flomax. Since hospital d/c, his BP has increased. Instructed to monitor at home over the next week and if > 140/90, will need to restart Amlodipine. Continue PAUL for now. [facility] Other 12-12-2023 Evaluation note* Encounter Date Diagnosis Assessment Notes Treatment Notes Treatment Clinical Notes Feb, Right leg swelling (ICD-10 - [...] infection Feb, Type 2 diabetes mellitus with hyperglycemia, [...] and inserts to prevent callus formation.Fall precautions. [facility] Other 12-08-2023 Evaluation note* Encounter Date Diagnosis [...] ulcers. Recommend routine foot care w/ Podiatry [facility] Other 11-21-2023 NoteHNO ID: [id number] Author: Leticia Milian APRN.HEARSE DRIVER Service: ? Author Type: Nurse Practitioner Type: Progress Notes Filed: 02/02/2023 2:13 PM Note Text: Norberto Washington [address] [place] [address] HISTORY OF PRESENT ILLNESS: Seen 07/28/22 for [...] see lab Duration: BPH w obs/luts, UTI [facility] SYMPTOMS SCORE. 1. INCOMPLETE EMPTYING [...] only if s (more content not included)... [facility]11-21-2023 Miscellaneous Notes* Addendum Note - Leticia Milain APRN.CNP - 02/02/2023 2:16 PM ESTAddended by: LETICIA MILIAN on: 02/02/2023 02:16 PM Modules accepted: Orders documented in this encounterMet[facility]11-21-2023 History of Present illness Narrative* Leticia Milian APRN.CNP - 02/02/2023 1:40 PM EST Norberto Washington [address] [facility] [address] HISTORY OF PRESENT ILLNESS: Seen 07/28/22 for [...] see lab Duration: BPH w obs/luts, UTI [facility] SYMPTOMS SCORE. 1. INCOMPLETE EMPTYING [...] Making Level: 4 - Moderate Leticia Milian APRN.HEARSE DRIVER documented in this encounterMetrohealth [facility]07-11-2023 Evaluation note* Encounter Date Diagnosis [...] w/ acute infection Requires no additional treatment [facility] Other 07-06-2023 Evaluation note* Encounter Date Diagnosis [...] precautions. Sep, Hyperlipidemia type II (ICD-10 - E78.01) Instructed on diet and exercise with continued [...] exercise for 30 minutes, 3-5 times weekly. [facility] Other 05-16-2023 NoteHNO ID: [id number] Author: Leticia Milian APRN.HEARSE DRIVER Service: ? Author Type: Nurse Practitioner Type: Progress Notes Filed: 07/30/2022 4:34 PM Note Text: [facility] [address] [facility] [address] HISTORY OF PRESENT ILLNESS: Seen 01/20/22 for [...] 07/20/22=neg UA 07/20/22=leuk esterase 250, wbc 11-25 [facility] SYMPTOMS SCORE. 1. INCOMPLETE EMPTYING [...] obs/luts, AUA, PVR Med (more content not included)...[facility]04-06-2023 Evaluation note* Encounter Date Diagnosis Assessment Notes [...] w/ antibiotics and treatment of urinary retention [facility] Other 03-21-2023 NotePROCEDURE: XR FOOT LT MIN [...] Electronically authenticated by: SAMY TORRES Date: 2022-06-02 15:48[facility]03-21-2023 NotePROCEDURE: XR FOOT LT MIN 3 VIEWS, [...] Electronically authenticated by: SAMY TORRES Date: 2022-06-02 15:48[facility]01-25-2023 Evaluation note* Encounter Date Diagnosis Assessment Notes [...] lesion was treated w/ cryotherapy w/o complications [facility] Other 01-06-2023 Evaluation note* Encounter Date Diagnosis [...] Mar, Hesitancy of micturition (ICD-10 - R39.11) [facility] Other 10-27-2022 History of Present illness Narrative* Zuleika Hackett - 01/08/2022 8:20 AM EDT Norberto Washington [address] [id number] Mr. Washington presents with chief complaints of: Enlarged L testicle. ED 11/07/21: PVR 179 cc, refused a catheter, scheduled to undergo a cystoscopy in [place] but was cancelled due to his urologist [...] epididymitis Hydroceles: None Spermatoceles: None Varicoceles: None [facility] SYMPTOMS SCORE. Date 01/08/2022 1. [...] complete. Leonard Dugan M.D. documented in this encounterMetrohealth [facility]10-05-2022 Hospital Discharge instructions Additional Instructions Continue taking Flomax as prescribed Avoid drinking any fluids several hours before bed Call your urologist tomorrow for a follow-up appointment Return if you are unable to urinate, develop blood in your urine, abdominal pain, [facility] Work Phone: [phone] History of Present illness Narrative* Leonard Dugan MD - 12/16/2021 2:51 PM EDT Norberto Washington [address] [place] [address] HISTORY OF PRESENT ILLNESS: ED 11/07/21: PVR 179 cc, refused a catheter, scheduled to undergo a cystoscopy in [place] but was cancelled due to his urologist [...] Otherwise, intermittent catheterization. Agreed indwelling catheter 18 polish. Flomax will not work, no prostate tissue [...] well resected prostate (had 2 TURP) in [place] PLAN: (Management Options): -Start Flomax one cap [...] Moderate Leonard Dugan MD documented in this encounterMetrohealth [facility] Center10-03-2022 Miscellaneous Notes* Telephone Encounter - Valetne Bell LPN - 12/15/2021 3:58 PM EDT Called and spoke to patient regarding message below. Patient states understanding to information provided. No further action required at this time. * Telephone Encounter - Leticia Milian APRN.CNP - 12/15/2021 10:13 AM EDT Please call and confirm that pt received [employer] message to start new script sent for antibiotic. Thanks Leticia MONDRAGON documented in this encounterMetrohealth [facility] Center09-29-2022 Miscellaneous Notes* Telephone Encounter - [...] be draining normally now. documented in this encounterMetrohealth [facility] Center09-28-2022 Nurse Note* Stephanie Kaur RN [...] hyperplasia with urinary retention documented in this encounterMetrohealth [facility]09-27-2022 History of Present illness Narrative* Leonard Dugan MD - 12/09/2021 5:05 PM EDT [facility] PHYSICIAN INTERPRETATION: [...] contractility Leonard Dugan MD documented in this encounterMetrohealth [facility] Center09-27-2022 Nurse Note* Stephanie Kaur RN - 12/09/2021 3:57 PM EDT [facility] UR[facility] LAB [...] of incomplete bladder emptying documented in this encounterMetrohealth [facility] Center09-26-2022 Miscellaneous Notes* Telephone Encounter - Stephanie Kaur RN - 12/08/2021 4:11 PM EDT LM for patient to reschedule catheter change for tomorrow. Last changed 11/26/21 in ED. Will be due for change on 12/23/21. Stephanie Kaur R.N. documented in this encounterMetrohealth [facility] Center09-12-2022 Miscellaneous Notes* Telephone Encounter - [...] has been busy with his spouse at [facility] having to care for her needs and hadn't called earlier when it first started on Wednesday. He was hoping it would clear up but it has not, urine is between Donaldson tint & Brown and he does see small clots. Patient does have pain at the end of his Penis slight swelling noted (he has been applying Neosporin) Denies difficulty with urine draining into [place] bag, he does not have back pain Please advise documented in this encounterMetrohealth [facility] Center08-31-2022 Nurse Note* Stephanie Kaur RN [...] visit @ 1122 , by Stephanie Kaur R.N. Current pain intensity is 0 on a [...] Education Session: None Instruction Provided To: Patient Superintendent Overhead Distribution Present: not applicable Discipline: Nursing Learning Topic: [...] supervision. Stephanie Kaur RN documented in this encounterMetrohealth [facility] Center08-31-2022 Procedure note* Leonard Dugan MD - 11/12/2021 11:00 AM EDTProcedure(s): CYSTOSCOPY Pre-Procedure Diagnose(s): BPH with obstruction/lower urinary tract symptoms Post-Procedure Diagnose(s): BPH with obstruction/lower urinary tract symptoms PROCEDURE: CYSTOSCOPY INDICATIONS: ED 11/07/21: PVR 179 cc, refused a catheter, scheduled to undergo a cystoscopy in [place] but was cancelled due to his urologist [...] Otherwise, intermittent catheterization. Agreed indwelling catheter 18 polish. By signing my name below, I, Zuleika [...] complete. Leonard Dugan M.D. documented in this encounterMetrohealth [facility] Center08-29-2022 History of Present illness Narrative* Leonard Dugan MD - 11/10/2021 12:11 PM EDT Cysto with uroflow 11-12-21 ED 11/07/21: PVR 179 cc, refused a catheter, scheduled to undergo a cystoscopy in [place] but was cancelled due to his urologist was sick Pt underwent TURP x2 within a week AUA= 3-5 wach ROSAMARIA 11/10/21 - 10 gm, rubbery, no nodules US 11/07/21:= mildly complex renal cysts UA and culture 11-07-21= -ve May need UDS based on cysto [facility]* Diagnosis BPH with obstruction/lower urinary tract symptoms- Primary Hypertrophy of prostate with urinary obstruction and other lower urinary tract symptoms (LUTS) Benign prostatic hyperplasia with urinary retention documented in this encounter [facility]* Diagnosis Urinary frequency- Primary Urinary urgency Urgency of urination Urinary straining Straining on urination Feeling of incomplete bladder emptying Incomplete bladder emptying documented in this encounter [facility]* Diagnosis Urinary tract infection without hematuria, site unspecified- Primary Feeling of incomplete bladder emptying Incomplete bladder emptying Benign prostatic hyperplasia with urinary retention documented in this encounter [facility] noteNo assessment information availableSouthwest General Health Center Work Phone: Evaluation note* Diagnosis Retention of urine- Primary Retention of urine, unspecified Flaccid bladder Neurogenic bladder, NOS documented in this encounter [facility]* Diagnosis Chronic epididymitis- Primary Left hydrocele Hydrocele, unspecified Weak urinary stream Slowing of urinary stream BPH without obstruction/lower urinary tract symptoms Hypertrophy of prostate without urinary obstruction and other lower urinary tract symptoms (LUTS) Epididymitis Orchitis and epididymitis, unspecified documented in this encounter [facility] CenterEvaluation noteNo InformationNortVeterans Affairs [facility] [employer] Other Evaluation note* Diagnosis BPH with obstruction/lower urinary tract symptoms- Primary Hypertrophy of prostate with urinary obstruction and other lower urinary tract symptoms (LUTS) Recurrent UTI Urinary tract infection, site not specified Weak urinary stream Slowing of urinary stream documented in this encounter [facility] CenterHis[facility] Narrative - Reported* Type Description Date [...] Removal 1999 Surgical History Left Broken Ankle 1972 Surgical History TURP with cystoscopy 09.20.2019 Hospitalization History see surgical history [facility] [employer] Other Reason for referral (narrative)* Outpatient Procedure (Routine) - Pending Review Specialty Diagnoses / Procedures Referred By Marce dillon Referred To Contact [facility] Diagnoses 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 Procedures URODYNAMICS MAGGY POST-VOIDING RESIDUAL URINE&/BLADDER CAP Leonard Dugan MD [address] [place] [address] [id number] [place] [address] Referral ID Status Reason Start Date Expiration Date Visits Requested Visits Authorized [id number] Pending Review Auto-Generat ed Referral 11/12/2021 11/12/2022 1 1 [facility] Summary Purpose Family History No [...] toe of right foot (M20.41) Referral Organization [facility] Referring Provider First Name Campbell Referring Provider Last Name Quentin Referring Provider Specialty Internal Me dicine Referred Organization [facility] Referred Provider Jhon Tejada Referred Address [address] [place], [place],[address] Referred Provider Specialty Podiatry - S urgical [...] section and content) DATE CREATED AUTHOR 11/04/2021 [facility] DATE CREATED AUTHOR AUTHOR'S ORGANIZ ATION 12/13/2021 [facility] DATE CREATED AUTHOR AUTHOR'S ORGANIZ ATION 06/25/2022 [facility] DATE CREATED AUTHOR AUTHOR'S ORGANRICA ATION 01/14/2023 [facility] DATE CREATED AUTHOR AUTHOR'S ORGANIZ ATION 02/04/2023 [facility] Source Comments (unrecognize d section and content) In the event this informatio n is protected by the Federal Confidentiality of Alcohol and Drug Abuse Patient Records regulations: The Federal rules restrict any use of the information to criminally investigate or prosecute any alcohol or drug abuse patient.[facility] CenterIn the event this information is protected by the Federal Confidentiality of Alcohol and Drug Abuse Patient Records regulations: The Federal rules restrict any use of the information to criminally investigate or prosecute any alcohol or drug abuse patient.[facility] CenterIn the event this information is protected by the Federal Confidentiality of Alcohol and Drug Abuse Patient Records regulations: The Federal rules restrict any use of the information to criminally investigate or prosecute any alcohol or drug abuse patient.[facility] CenterIn the event this information is protected by the Federal Confidentiality of Alcohol and Drug Abuse Patient Records regulations: The Federal rules restrict any use of the information to criminally investigate or prosecute any alcohol or drug abuse patient.[facility] CenterIn the event this information is protected by the Federal Confidentiality of Alcohol and Drug Abuse Patient Records regulations: The Federal rules restrict any use of the information to criminally investigate or prosecute any alcohol or drug abuse patient.[facility] CenterIn the event this information is protected by the Federal Confidentiality of Alcohol and Drug Abuse Patient Records regulations: The Federal rules restrict any use of the information to criminally investigate or prosecute any alcohol or drug abuse patient.[facility] CenterIn the event this information is protected by the Federal Confidentiality of Alcohol and Drug Abuse Patient Records regulations: The Federal rules restrict any use of the information to criminally investigate or prosecute any alcohol or drug abuse patient.[facility] CenterIn the event this information is protected by the Federal Confidentiality of Alcohol and Drug Abuse Patient Records regulations: The Federal rules restrict any use of the information to criminally investigate or prosecute any alcohol or drug abuse patient.[facility] CenterIn the event this information is protected by the Federal Confidentiality of Alcohol and Drug Abuse Patient Records regulations: The Federal rules restrict any use of the information to criminally investigate or prosecute any alcohol or drug abuse patient.[facility] CenterIn the event this information is protected by the Federal Confidentiality of Alcohol and Drug Abuse Patient Records regulations: The Federal rules restrict any use of the information to criminally investigate or prosecute any alcohol or drug abuse patient.[facility] CenterIn the event this information is protected by the Federal Confidentiality of Alcohol and Drug Abuse Patient Records regulations: The Federal rules restrict any use of the information to criminally investigate or prosecute any alcohol or drug abuse patient.[facility] CenterIn the event this information is protected by the Federal Confidentiality of Alcohol and Drug Abuse Patient Records regulations: The Federal rules restrict any use of the information to criminally investigate or prosecute any alcohol or drug abuse patient.[facility] Care Teams (unrecognized sec tion and content) Team Status: Active Member Role Status Dates Campbell Naranjo , Primary Care Provider Active Team Status: Inactive Member Role Status Dates Campbell Naranjo , Primary Care Provider Active Low Carter DO Emergency Provider Active Cable Tool Operator Relationship Specialty Start Date End Date Ran Lees Jr. PCP - General 10/10/09 Cable Tool Operator Relationship Specialty Start Date End Date Ran Lees Jr. PCP - General 10/10/09 Cable Tool Operator Relationship Specialty Start Date End Date Ran Lees Jr. PCP - General 10/10/09 Cable Tool Operator Relationship Specialty Start Date End Date Campbell Naranjo, DO [address] [facility] [place] [address] PCP - General Internal Medicine 11/26/21 Cable Tool Operator Relationship Specialty Start Date End Date Campbell Naranjo, DO [address] [place] [address] PCP - General Internal Medicine 11/26/21 Cable Tool Operator Relationship Specialty Start Date End Date Campbell Naranjo, DO [address] [place] [address] PCP - General Internal Medicine 11/26/21 Cable Tool Operator Relationship Specialty Start Date End Date Campbell Naranjo [place], DO [address] [place] [address] PCP - General Internal Medicine 11/26/21 Team Status: Inactive Member Role Status Dates Campbell Naranjo DO Primary Care Provider Active Davis Cervantes MD Emergency Provider Active Cable Tool Operator Relationship Specialty Start Date End Date Campbell Naranjo, DO [address] [facility] [place] [address] PCP - General Internal Medicine 11/26/21 Team Status: Inactive Member Role Status Dates Campbell Naranjo , Primary Care Provider Active Sam Simons , Emergency Provider Active Team Status: Inactive Member Role Status Dates Campbell Quentin , Primary Care Provider Active Sam Simons , Attending Provider Active Cable Tool Operator Relationship Specialty Start Date End Date Campbell Naranjo, DO [address] [facility] [place] [address] PCP - General Internal Medicine 11/26/21 Cable Tool Operator Relationship Specialty Start Date End Date Campbell Naranjo, DO [address] [facility] [place] [address] PCP - General Internal Medicine 11/26/21 Cable Tool Operator Relationship Specialty Start Date End Date Campbell Naranjo, DO [address] [facility] [place] [address] PCP - General Internal Medicine 11/26/21 Reason for Visit (unrecogniz ed section and content) [facility] d/c 03/09 Reason Comments Cystoscopy-1 Reason Comments [facility] [...] an alternate sectionNo InformationNo InformationNo InformationNo InformationNo Information FOR RECORDS PERTAINING [...] BE BASED ON THE PRIMARY CLINICAL RECORDS. [facility]. provides no warranty or guarantee of the accuracy or completeness of information in this document.
== END 2023-03-30 09:01 | disposition home or self-care (01) ==
LOC: WC 09:00
PROVIDERS: PCP Internal Medicine; Visit Provider Podiatrist Foot & Ankle Surgery
DX: E11.621 Type 2 diabetes mellitus with foot ulcer (principal); L97.512 Non-pressure chronic ulcer of other part of right foot with fat layer exposed; L97.515 Non-pressure chronic ulcer of other part of right foot with muscle involvement without evidence of necrosis
CPT/HCPCS: 11042

== ENCOUNTER 2023-04-09 11:08 | Outpatient (OUT) | payer MEDICARE, SELFPAY ==
--- OUTSIDE RECORDS SUMMARY | 2023-04-09 11:11 | XMS_ITS | CCD ---
Author Name Unknown Address [address] [place] [address] Organization [facility] Care Team Providers Care Household Cook Name Role Phone Ran Lees Jr. Primary Care Provider Unava ilable RAN LEES JR Primary Care Unavailable KEELY GUTIERREZ Attending Unavailable CAMPBELL NARANJO Primary Care Unavailable Campbell Naranjo DO Primary Care Provider DO Campbell Naranjo Primary Care Provider [phone] MD Davis Cervantes Emergency Provider DO Sam Simons Emergency Provider [phone] DO Sam Simons Attending Provider Campbell Naranjo [...] Unavailable DO Campbell Naranjo Primary Care Provider [phone] DO Low Carter Emergency Provider Campbell Naranjo [...] [CIPROFLOXACIN] Drug Allergy 08-01-19 10 GI Upset, [facility] (20 sources) Sulfonamides (Antibiotic); Translations: [SULFA (SULFONAMIDE ANTIBIOTICS)] Propensity to adverse reactions 08-01-19 10 Rash, [facility] (1 source) Ciprofloxacin Drug Allergy [facility] (1 source) Sulfonamides (Antibiotic) Drug allergy (disorder) [facility] (1 source) Allergies Reconciled Propensity to adverse reactions Unknown [facility] Other (1 source) patient allergy list reviewed by nurse or physicia Propensity to adverse reactions 05-20-19 18 Comment:Done [employer] [facility] Other (1 source) Ciprofloxacin Drug Allergy 12-12-19 [facility] Repository (1 source) Sulfonamides (Antibiotic) Drug allergy (disorder) 12-12-19 [facility] Repository Medications Current Medications Medication Drug Class(es) [...] twice daily. Take 1 capsule by mo [facility] three times daily for 3 days. [...] 12:00am Start: 12-16-2021 take 1 capsule by [facility], then take 1 capsule by mouth once daily tamsulosin (FLOMAX) 0.4 mg Take 1 capsule by mouth once daily. Take one cap. daily 30 capsule 5 12/16/2021 Active Comment on above: Take 1 capsule by mo [facility] once daily. Take one cap. 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 operator (current) drug therapy; Translations: [OTH SKILLED NURSING CURRENT DRUG THERAPY] Onset: 10-22-2021 Episodic Other [...] Test Name Value Interpretation Reference Range Facility [facility] 02-02-2023 [facility] Office Visit (UROLLN ) NORBERTO WASHINGTON ([id number]) 1940 M Date Time Provider Department 02/02/23 1:30 PM LETICIA MILIAN During your visit today, we recorded the following information about you: Pulse Blood pressure Weight 65/minute 146/70 102.1 kg Leticia Milian, COUNSELOR DORMITORY.ARC WELDER APPRENTICE 02/02/2023 2:13 PM Signed Norberto Washington [address] [place] [id number] HISTORY OF PRESENT ILLNESS: Seen 07/28/22 for [...] see lab Duration: BPH w obs/luts, UTI [facility] SYMPTOMS SCORE. 1. INCOMPLETE EMPTYING [...] Stream (imp (more content not included)... Normal [facility] Bacteria Ur Culton 3 Bacteria identified Cx Nom (U) CULTURE, URINE: No growth (<1,000 CFU/ml) Normal [facility] Comment on above: Performed By: #### 6 30-4 #### [facility] CLIA [id number] [address] [place] [address] [place] CNOVon 07-28-2022 [facility] Office Visit (UROLLN ) NORBERTO WASHINGTON ([id number]) 1940 M Date Time Provider Department 07/28/22 1:30 PM LETICIA MILIAN During your visit today, we recorded the following information about you: Pulse Blood pressure Weight 68/minute 142/55 100.7 kg Leticia Milian APRN.ARC WELDER APPRENTICE 07/30/2022 4:34 PM Addendum Norberto Washington [address] [facility] [address] HISTORY OF PRESENT ILLNESS: Seen 01/20/22 for [...] 07/20/22=neg UA 07/20/22=leuk esterase 250, wbc 11-25 [facility] SYMPTOMS SCORE. 1. INCOMPLETE EMPTYING [...] -DM UTI (more content not included)... Normal [facility] Bacteria Ur Culton 3 Bacteria identified Cx Nom (U) CULTURE, URINE: No growth (<1,000 CFU/ml) Normal [facility] Comment on above: Performed By: #### 6 30-4 #### [facility] CLIA [id number] [address] [place] [address] [place] Urinalysis complete panel (U )on 07-20-2022 Bilirubin Ql (U) Negative Normal Negative [facility] Comment on above: Order Comment: Speci men Type: URINE SPECIMEN Ordering Facility: [facility] Address: [address] [place], [place] [address] Performed By: #### 2 4356-8 #### [facility] CLIA [id number] [facility] [place] [address] [place] Clarity (Unsp spec) Clear Normal Clear [facility] Comment on above: Order Comment: Speci men Type: URINE SPECIMEN Ordering Facility: [facility] Address: [address] Performed By: #### 2 4356-8 #### [facility] CLIA [id number] [address] [place] [address] [place] Color (U) Yellow Normal Yellow [facility] Comment on above: Order Comment: Speci men Type: URINE SPECIMEN Ordering Facility: [facility] Address: [address] Performed By: #### 2 4356-8 #### [facility] CLIA [id number] [address] [place] [address] [place] Epithelial cells LM.HPF (Urine sed) [#/Area] Few Normal [facility] Comment on above: Order Comment: Speci men Type: URINE SPECIMEN Ordering Facility: [facility] Address: [address] [place], [place] [address] Performed By: #### 2 4356-8 #### [facility] CLIA [id number] [address] [place] [address] [place] Glucose Test strip (U) [Mass/Vol] Negative Normal Trace, Negative [facility] Comment on above: Order Comment: Speci men Type: URINE SPECIMEN Ordering Facility: [facility] Address: [address] [place], [place] [address] Performed By: #### 2 4356-8 #### [facility] CLIA [id number] [address] [place] [address] [place] Hemoglobin Ql (U) Negative Normal Negative, Trace [facility] Comment on above: Order Comment: Speci men Type: URINE SPECIMEN Ordering Facility: [facility] Address: [address] Performed By: #### 2 4356-8 #### [facility] CLIA [id number] [address] [place] [address] [place] Ketones Ql (U) Negative Normal Trace, Negative [facility] Comment on above: Order Comment: Speci men Type: URINE SPECIMEN Ordering Facility: [facility] Address: [address] [place] [address] Performed By: #### 2 4356-8 #### [facility] CLIA [id number] [address] [place] [address] [place] Leukocyte esterase Test strip Ql (U) 250 Ayaz/uL Abnormal Negative, 25 Ayaz/uL [facility] Comment on above: Order Comment: Speci men Type: URINE SPECIMEN Ordering Facility: [facility] Address: [address] [place] [address] Performed By: #### 2 4356-8 #### [facility] CLIA [id number] [address] [place] [address] [place] Nitrite Ql (U) Negative Normal Negative [facility] Comment on above: Order Comment: Speci men Type: URINE SPECIMEN Ordering Facility: [facility] Address: [address] [place], [place] [address] Performed By: #### 2 4356-8 #### [facility] CLIA [id number] [address] [place] [address] [place] pH (U) 5.5 [pH] Normal 5.0-8.0 [facility] Comment on above: Order Comment: Speci men Type: URINE SPECIMEN Ordering Facility: [facility] Address: [address] [place], [place] [address] Performed By: #### 2 4356-8 #### [facility] CLIA [id number] [address] [place] [address] [place] Protein (U) [Mass/Vol] Negative Normal Trace , Negative [facility] Comment on above: Order Comment: Speci men Type: URINE SPECIMEN Ordering Facility: [facility] Address: [address] [place], [place] [address] Performed By: #### 2 4356-8 #### [facility] CLIA [id number] [facility] [place] [address] [place] RBC LM.HPF (Urine sed) [#/Area] 0-3 /HPF Normal 0-3 /HPF [facility] Comment on above: Order Comment: Speci men Type: URINE SPECIMEN Ordering Facility: [facility] Address: [address] [place], [place] [address] Performed By: #### 2 4356-8 #### [facility] CLIA [id number] [address] [place] [address] [place] Specific gravity (U) [Rel density] 1.016 Normal 1.005-1.030 [facility] Comment on above: Order Comment: Speci men Type: URINE SPECIMEN Ordering Facility: [facility] Address: [address] [place], [place] [address] Performed By: #### 2 4356-8 #### [facility] CLIA [id number] [address] [place] [address] [place] Urobilinogen Ql (U) Negative Normal Negative [facility] Comment on above: Order Comment: Speci men Type: URINE SPECIMEN Ordering Facility: [facility] Address: [address] [place], [place] [address] Performed By: #### 2 4356-8 #### [facility] CLIA [id number] [address] [place] [address] [place] WBC LM.HPF (Urine sed) [#/Area] 11-25 /HPF Abnormal 0-5 /HPF [facility] Comment on above: Order Comment: Speci men Type: URINE SPECIMEN Ordering Facility: [facility] Address: [address] [place], [place] [address] Performed By: #### 2 4356-8 #### [facility] CLIA [id number] [address] [place] [address] [place] GLYCOHEMOGLOBIN A1Con 2022 ADA RECOMMENDATION SEE BELOW Normal [facility] Comment on above: Result Comment: ADA RECOMMENDED LIMIT 4.0 - 6.0 ADA THERAPEUTIC TARGET < 7.0 ACTION SUGGESTED > 7.0 Performed By: #### A 1C #### [facility] [address] [address] [address] Juan Pablo Kaminski Glucose [Mass/Vol] 128 mg/dL Normal [facility] Comment on above: Performed By: #### A 1C #### [facility] [address] [address] [address] Juan Pablo Kaminski HbA1c (Bld) [Mass fraction] 6.1 % Normal 4.5-6.2 [facility] Comment on above: Performed By: #### A 1C #### [facility] [address] [place] [address] Dr. Juan Pablo Kaminski A1C with Estimated Average G luon 03-20-2022 A1C with Estimated Average Glu 128 [facility] [employer] Other A1C with Estimated Average Glu [facility] [facility] Other HbA1c (Bld) [Mass fraction] 6.1 % Normal 4.5-6.2 [facility] Other Comment on above: Performed By: #### A 1C #### [facility] [address] [place] [address] Dr. Juan Pablo Kaminski GLYCOHEMOGLOBIN A1Con 2022 ADA RECOMMENDATION SEE BELOW Normal [facility] Comment on above: Result Comment: ADA RECOMMENDED LIMIT 4.0 - 6.0 ADA THERAPEUTIC TARGET < 7.0 ACTION SUGGESTED > 7.0 Performed By: #### A 1C #### [facility] [address] [place] [address] Dr. Juan Pablo Kaminski Glucose [Mass/Vol] 128 mg/dL Normal [facility] Comment on above: Performed By: #### A 1C #### [facility] [address] [place] [address] Dr. Juan Pablo Kaminski US SCROTUM W [...] by: LEIDY PEREIRA Date: 2021-12-25 18:32 Normal [facility] Urine culture routineOrdered By: Sam Simons on 12-19-2021 Bacteria identified Cx Nom (U) Pseudomonas aeruginosa [facility] Automated erythrocytes count in urine sediment (number/area)Ordered By: Sam Simons on 12-17-2021 RBC Auto (Urine sed) [#/Area] 1-2 [HPF] 0-4 [facility] Automated leukocytes count i n urine sediment (number/area)Ordered By: Sam Simons on 12-17-2021 WBC Auto (Urine sed) [#/Area] 20-49 [HPF] 0-4 [facility] Bilirubin Test strip Ql (U)O rdered By: Sam Simons on 12-17-2021 Bilirubin Ql (U) Negative Negative [facility] Color Auto (U)Ordered By: Micheal Simons on 12-17-2021 Color (U) Yellow Yellow [facility] Ketones Auto test strip (U) [Mass/Vol]Ordered By: Sam Simons on 12-17-2021 Ketones (U) [Mass/Vol] Negative Negative [facility] - UrinalysisOrder ed By: Sam Simons on 12-17-2021 Hyaline casts LM Ql (Urine sed) 0-8 [LPF] 0-8 [facility] Nitrite Test strip Ql (U)Ord ered By: Sam Simons on 12-17-2021 Nitrite Ql (U) Negative Negative [facility] Protein Auto test strip (U) [Mass/Vol]Ordered By: Sam Simons on 12-17-2021 Protein (U) [Mass/Vol] Negative Negative [facility] Specific gravity Auto test s trip (U) [Rel density]Ordered By: Sam Simons on 12-17-2021 Specific gravity (U) [Rel density] 1.016 1.001-1.030 [facility] Squamous epithelial cells de tection in urine sediment by light microscopyOrdered By: Sam Simons on 12-17-2021 Epithelial cells.squamous LM Ql (Urine sed) 0-1 [HPF] 0-2 [facility] Urine bacteria detection by automated methodOrdered By: Sam Simons on 12-17-2021 Bacteria Auto Ql (U) None seen None Seen [facility] Urine clarity by refractomet ry automatedOrdered By: Sam Simons on 12-17-2021 Clarity Refractometry automated (U) Clear Clear [facility] Urine glucose measurement by automated test strip (mass/volume)Ordered By: Sam Simons on 12-17-2021 Glucose Auto test strip (U) [Mass/Vol] Normal mg/dL Normal [facility] Urine hemoglobin detection b y automated test stripOrdered By: Sam Simons on 12-17-2021 Hemoglobin Auto test strip Ql (U) Negative Negative [facility] Urine leukocyte esterase det ection by automated test stripOrdered By: Sam Simons on 12-17-2021 Leukocyte esterase Auto test strip Ql (U) 4+ Negative [facility] Urobilinogen Auto test strip (U) [Mass/Vol]Ordered By: Sam Simons on 12-17-2021 Urobilinogen (U) [Mass/Vol] Normal mg/dL Normal [facility] pH Auto test strip (U)Ordere d By: Sam Simons on 12-17-2021 pH (U) 6.0 [pH] 5.0-9.0 [facility] Urine culture routineOrdered By: Davis Cervantes on 12-13-2021 Bacteria identified Cx Nom (U) No Growth 2 Days [facility] Automated erythrocytes count in urine sediment (number/area)Ordered By: Davis Cervantes on 12-11-2021 RBC Auto (Urine sed) [#/Area] 20-49 [HPF] 0-4 [facility] Automated leukocytes count i n urine sediment (number/area)Ordered By: Davis Cervantes on 12-11-2021 WBC Auto (Urine sed) [#/Area] 10-19 [HPF] 0-4 [facility] Basophils Auto (Bld) [#/Vol] Ordered By: Davis Cervantes on 12-11-2021 Basophils (Bld) [#/Vol] 0.1 10*3/uL 0.0-0.2 [facility] Basophils/100 WBC Auto (Bld) Ordered By: Davis Cervantes on 12-11-2021 Basophils/100 WBC (Bld) 1.2 % . [facility] Bilirubin Test strip Ql (U)O rdered By: Davis Cervantes on 12-11-2021 Bilirubin Ql (U) Negative Negative [facility] Blood hemoglobin measurement (mass/volume)Ordered By: Davis Cervantes on 12-11-2021 Hemoglobin (Bld) [Mass/Vol] 13.3 g/dL 13.0-17.0 [facility] Blood leukocytes automated c ount (number/volume)Ordered By: Davis Cervantes on 12-11-2021 WBC (Bld) [#/Vol] 8.2 10*3/uL 4.5-11.0 [facility] Color Auto (U)Ordered By: Mary Cervantes on 12-11-2021 Color (U) Yellow Yellow [facility] Creatinine and Glomerular fi ltration rate.predicted panel (S/P/Bld)Ordered By: Davis Cervantes on 12-11-2021 Creatinine [Mass/Vol] 1.16 mg/dL 0.64-1.27 [facility] Eosinophils Auto (Bld) [#/Vo l]Ordered By: Davis Cervantes on 12-11-2021 Eosinophils (Bld) [#/Vol] 0.2 10*3/uL 0.0-0.45 [facility] Eosinophils/100 WBC Auto (Bl d)Ordered By: Davis Cervantes on 12-11-2021 Eosinophils/100 WBC (Bld) 2.9 % . [facility] Erythrocyte distribution wid th Auto (RBC) [Ratio]Ordered By: Davis Cervantes on 12-11-2021 Erythrocyte distribution width (RBC) [Ratio] 11.8 % 12.0-14.8 [facility] Estimated glomerular filtrat ion rate (GFR) non- AmericanOrdered By: Davis Cervantes on 12-11-2021 GFR/1.73 sq M.predicted among non-blacks MDRD (S/P/Bld) [Vol rate/Area] 60 mL/Min [facility] Hematocrit Auto (Bld) [Volum e fraction]Ordered By: Davis Cervantes on 12-11-2021 Hematocrit (Bld) [Volume fraction] 39.6 % 38.8-50.0 [facility] Ketones Auto test strip (U) [Mass/Vol]Ordered By: Davis Cervantes on 12-11-2021 Ketones (U) [Mass/Vol] Negative Negative [facility] Hematology and Cell countsOrdered By: Davis Cervantes on 12-11-2021 Nucleated RBC/100 WBC (Bld) [Ratio] 0.0 % 0-0.5 [facility] - UrinalysisOrder ed By: aDvis Cervantes on 12-11-2021 Hyaline casts LM Ql (Urine sed) 0-8 [LPF] 0-8 [facility] Lymphocytes Auto (Bld) [#/Vo l]Ordered By: Davis Cervantes on 12-11-2021 Lymphocytes (Bld) [#/Vol] 1.9 10*3/uL 1.00-4.8 [facility] Lymphocytes/100 WBC Auto (Bl d)Ordered By: Davis Cervantes on 12-11-2021 Lymphocytes/100 WBC (Bld) 23.3 % . [facility] MCH Auto (RBC) [Entitic mass ]Ordered By: Davis Cervantes on 12-11-2021 MCH (RBC) [Entitic mass] 32.0 pg 27.5-35.2 [facility] MCHC Auto (RBC) [Mass/Vol]Or dered By: Davis Cervantes on 12-11-2021 MCHC (RBC) [Mass/Vol] 33.6 g/dL 32.5-35.6 [facility] MCV Auto (RBC) [Entitic vol] Ordered By: Davis Cervantes on 12-11-2021 MCV (RBC) [Entitic vol] 95.1 fL 83.5-101 [facility] Monocytes Auto (Bld) [#/Vol] Ordered By: Davis Cervantes on 12-11-2021 Monocytes (Bld) [#/Vol] 1.1 10*3/uL 0.0-0.8 [facility] Monocytes/100 WBC Auto (Bld) Ordered By: Davis Cervantes on 12-11-2021 Monocytes/100 WBC (Bld) 13.6 % . [facility] Neutrophils Auto (Bld) [#/Vo l]Ordered By: Davis Cervantes on 12-11-2021 Neutrophils (Bld) [#/Vol] 4.8 10*3/uL 1.8-7.7 [facility] Neutrophils/100 WBC Auto (Bl d)Ordered By: Davis Cervantes on 12-11-2021 Neutrophils/100 WBC (Bld) 59.0 % . [facility] Nitrite Test strip Ql (U)Ord ered By: Davis Cervantes on 12-11-2021 Nitrite Ql (U) Negative Negative [facility] No Panel InformationOrdered By: Davis Cervantes on 12-11-2021 Estimated GFR () > 60 mL/Min [facility] Comment on above: GFR estimated refere nce range: According to KDOQI guidelines, <60 ml/min/1.73m2 is sufficient to diagnose a patient with chronic kidney disease. Pharmacy Creatinine Clearance (Chem 57.67 [facility] Platelet mean volume Auto (B ld) [Entitic vol]Ordered By: Davis Cervantes on 12-11-2021 Platelet mean volume (Bld) [Entitic vol] 7.0 fL 6.6-10.1 [facility] Platelets Auto (Bld) [#/Vol] Ordered By: Davis Cervantes on 12-11-2021 Platelets (Bld) [#/Vol] 266 10*3/uL 150-450 [facility] Protein Auto test strip (U) [Mass/Vol]Ordered By: Davis Cervantes on 12-11-2021 Protein (U) [Mass/Vol] Negative Negative [facility] RBC Auto (Bld) [#/Vol]Ordere d By: Davis Cervantes on 12-11-2021 RBC (Bld) [#/Vol] 4.17 10*6/uL 3.90-5.60 [facility] Serum or plasma anion gap de terminationOrdered By: Davis Cervantes on 12-11-2021 Anion gap [Moles/Vol] 12.2 mmol/L 6.0-15.0 [facility] Serum or plasma calcium maggy urement (mass/volume)Ordered By: Davis Cervantes on 12-11-2021 Calcium [Mass/Vol] 9.0 mg/dL 8.2-10.2 [facility] Serum or plasma chloride duran surement (moles/volume)Ordered By: Davis Cervantes on 12-11-2021 Chloride [Moles/Vol] 96 mmol/L 95-114 [facility] Serum or plasma glucose maggy urement (mass/volume)Ordered By: Davis Cervantes on 12-11-2021 Glucose [Mass/Vol] 131 mg/dL 70-100 [facility] Comment on above: ADA recommended refe rence rangeRandom Glucose Reference Range is dependent on time and content of last meal. Glucose of more than 200 mg/dL in a nonstressed, ambulatory subject supports the diagnosis of Diabetes Mellitus. Serum or plasma potassium me asurement (moles/volume)Ordered By: Davis Cervantes on 12-11-2021 Potassium [Moles/Vol] 4.5 mmol/L 3.5-5.1 [facility] Serum or plasma sodium measu rement (moles/volume)Ordered By: Davis Cervantes on 12-11-2021 Sodium [Moles/Vol] 131 mmol/L 136-146 [facility] Serum or plasma total carbon dioxide measurement (moles/volume)Ordered By: Davis Cervantes on 12-11-2021 CO2 [Moles/Vol] 27.3 mmol/L 22.0-30.0 [facility] Serum or plasma urea nitroge n measurement (mass/volume)Ordered By: Davis Cervantes on 12-11-2021 Urea nitrogen [Mass/Vol] 20 mg/dL 9-23 [facility] Specific gravity Auto test s trip (U) [Rel density]Ordered By: Davis Cervantes on 12-11-2021 Specific gravity (U) [Rel density] 1.014 1.001-1.030 [facility] Squamous epithelial cells de tection in urine sediment by light microscopyOrdered By: Davis Cervantes on 12-11-2021 Epithelial cells.squamous LM Ql (Urine sed) 0-1 [HPF] 0-2 [facility] Urine bacteria detection by automated methodOrdered By: Davis Cervantes on 12-11-2021 Bacteria Auto Ql (U) None seen None Seen [facility] Urine clarity by refractomet ry automatedOrdered By: Davis Cervantes on 12-11-2021 Clarity Refractometry automated (U) Clear Clear [facility] Urine glucose measurement by automated test strip (mass/volume)Ordered By: Davis Cervantes on 12-11-2021 Glucose Auto test strip (U) [Mass/Vol] Normal mg/dL Normal [facility] Urine hemoglobin detection b y automated test stripOrdered By: Davis Cervantes on 12-11-2021 Hemoglobin Auto test strip Ql (U) 2+ Negative [facility] Urine leukocyte esterase det ection by automated test stripOrdered By: Davis Cervantes on 12-11-2021 Leukocyte esterase Auto test strip Ql (U) 2+ Negative [facility] Urobilinogen Auto test strip (U) [Mass/Vol]Ordered By: Davis Cervantes on 12-11-2021 Urobilinogen (U) [Mass/Vol] Normal mg/dL Normal [facility] pH Auto test strip (U)Ordere d By: Davis Cervantes on 12-11-2021 pH (U) 5.5 [pH] 5.0-9.0 [facility] ED NOTEon 11-27-2021 ED NOTE HNO ID: [id number] Author: Alyx Vergara RN Service: Nursing Author Type: Registered Nurse Type: ED Notes Filed: 11/26/2021 10:21 PM Note Text: Discharge instructions and follow up appointments reviewed. Pt verbalized understanding and states no concerns or questions at this time. VSS. Spoke with Asha about elevated BP. Stated that it's okay for pt to go and have him f/u with his PCP. Normal [facility] ED NOTE HNO ID: [id number] Author: Alyx Vergara RN Service: Nursing Author Type: Registered Nurse Type: ED Notes Filed: 11/26/2021 10:10 PM Note Text: Replaced hamilton bag with leg bag. Normal [facility] Bacteria Ur Culton 2 Bacteria identified Cx Nom (U) [id number] Abnormal [facility] Comment on above: Order Comment: Speci men Type: URINE SPECIMEN Ordering Facility: [facility] Address: [address] [place] [address] Result Comment: >=10 0,000 CFU/ml Klebsiella oxytoca Performed By: #### 6 30-4, 94052-9 #### [facility] CLIA [id number] [address] [place] [address] [place] Bacterial susceptibility maldonado el (Isol)on 11-26-2021 Ampicillin [Susc] Resistant [facility] Comment on above: Order Comment: Order ing Facility: [facility] Address: [address] [place] [address] Performed By: #### 6 30-4, 17176-9 #### [facility] CLIA [id number] [address] [place] [address] [place] Ampicillin+Sulbactam [Susc] 4 Susceptible Susceptible <=8 , Intermediate >8 , Resistant >16 [facility] Comment on above: Order Comment: Order ing Facility: [facility] Address: [address] [place], [place] [address] Performed By: #### 6 30-4, 98784-2 #### [facility] CLIA [id number] [address] [place] [address] [place] [facility] ceFAZolin [Susc] <=4 Susceptible Susceptible 0-16 , Intermediate <0 or >16 , Resistant >16 [facility] Comment on above: Order Comment: Order ing Facility: [facility] Address: [address] [place], [place] [address] Performed By: #### 6 30-4, 49635-8 #### [facility] CLIA [id number] [address] [place] [address] [place] Cefepime [Susc] <=1 Susceptible Susceptible <=2 , Intermediate >2 , Resistant >=16 [facility] Comment on above: Order Comment: Order ing Facility: [facility] Address: [address] [place] [address] Performed By: #### 6 30-4, 25777-4 #### [facility] CLIA [id number] [address] [place] [address] [place] cefTRIAXone [Susc] <=1 Susceptible Susceptib le <=1 , Intermediate >1 , Resistant >=4 [facility] Comment on above: Order Comment: Order ing Facility: [facility] Address: [address] [place], [place] [address] Performed By: #### 6 30-4, 50681-3 #### [facility] CLIA [id number] [address] [place] [address] [place] Ciprofloxacin [Susc] <=0.25 Susceptible Suscept ible <0.5 , Intermediate >=.5 , Resistant >=1 [facility] Comment on above: Order Comment: Order ing Facility: [facility] Address: [address] [place], [place] [address] Performed By: #### 6 30-4, 14422-0 #### [facility] CLIA [id number] [place] Ertapenem ROCIO [Susc] <=0.5 Susceptible Suscept ible <=0.5 , Intermediate >.5 , Resistant >1 [facility] Comment on above: Order Comment: Order ing Facility: [facility] Address: [address] [place] [address] Performed By: #### 6 30-4, 89407-7 #### [facility] CLIA [id number] [address] [place] [address] [place] Gentamicin [Susc] <=1 Susceptible Susceptibl e <=4 , Intermediate >4 , Resistant >8 [facility] Comment on above: Order Comment: Order ing Facility: [facility] Address: [address] [place] [address] Performed By: #### 6 30-4, 21539-6 #### [facility] IA [id number] [address] [place] [address] [place] Meropenem [Susc] <=0.25 Susceptible Susceptible <=1 , Intermediate >1 , Resistant >2 [facility] Comment on above: Order Comment: Order ing Facility: [facility] Address: [address] [place] [address] Performed By: #### 6 30-4, 96339-1 #### [facility] CLIA [id number] [address] [place] [address] [place] Nitrofurantoin [Susc] 32 Susceptible Suscep tible <=32 , Intermediate >32 , Resistant >64 [facility] Comment on above: Order Comment: Order ing Facility: [facility] Address: [address] [place], [place] [address] Performed By: #### 6 30-4, 08787-4 #### [facility] CLIA [id number] [address] [place] [address] [place] Piperacillin+Sulbactam ROCIO [Susc] <=4 Susceptible Susceptible <=16 , Intermediate >16 , Resistant >64 [facility] Comment on above: Order Comment: Order ing Facility: [facility] Address: [address] [place] [address] Performed By: #### 6 30-4, 46226-5 #### [facility] CLIA [id number] [address] [place] [address] Tobramycin [Susc] <=1 Susceptible Susceptibl e <=4 , Intermediate >4 , Resistant >8 [facility] Comment on above: Order Comment: Order ing Facility: [facility] Address: [address] [place] [address] Performed By: #### 6 30-4, 51008-8 #### [facility] CLIA [id number] [address] [place] [address] Trimethoprim+Sulfameth oxazole [Susc] <=20 Susceptible Susceptible <=40 , Resistant >40 [facility] Comment on above: Order Comment: Order ing Facility: [facility] Address: [address] [place] [address] Performed By: #### 6 30-4, 75290-4 #### [facility] CLIA [id number] [address] [place] [address] ED NOTEon 11-26-2021 ED NOTE HNO ID: [id number] Author: Alyx Vergara RN Service: Nursing Author Type: Registered Nurse Type: ED Notes Filed: 11/26/2021 9:20 PM Note Text: Replaced hamilton per Asha BARR. [facility] ED NOTE HNO ID: [id number] Author: Alyx Vergara RN Service: Nursing Author Type: Registered Nurse Type: ED Notes Filed: 11/26/2021 9:01 PM Note Text: Was instructed to bladder scan pt due to pt having no urine in replaced bag. Bladder scanned 261 mL's the first time. Then 214 mL's the second time. Made Asha ESQUIVEL) aware. [facility] ED NOTE HNO ID: [id number] Author: Alyx Vergara, RN Service: Nursing Author Type: Registered Nurse Type: ED Notes Filed: 11/26/2021 9:49 PM Note Text: Flushed 20 mL Hamilton. No leaking noted around tube. Normal [facility] ED PROV NOTEon 11-26-2021 ED PROV NOTE HNO ID: [id number] Author: Asha Clinton PA-C Service: ? Author Type: Physician Communications Strategist Type: ED Provider Notes Filed: 11/26/2021 10:26 [...] culture. Previous and only urine culture in [facility] on 11/07 had no growth. Given dose of Keflex. Prescription for this E scripted to pharmacy. Patient discharged with Hamilton in place, leg bag instructions. Elevated blood pressure noted and improved during stay. No CP, sob, dizziness or any other complaints. Recommend f/u with pcp for recheck. All questions and concerns addre (more content not included)... Normal [facility] Urinalysis complete panel (U )on 11-26-2021 Bacteria LM.HPF (Urine sed) [#/Area] Many Abnormal None Seen [facility] Comment on above: Order Comment: Speci men Type: URINE SPECIMEN Ordering Facility: [facility] Address: [address] [place] [address] Performed By: #### 6 30-4, 42235-9 #### [facility] CLIA [id number] [address] [place] [address] [place] Bilirubin Ql (U) Negative Normal [facility] Comment on above: Order Comment: Speci men Type: URINE SPECIMEN Ordering Facility: [facility] Address: [address] [place] [address] Performed By: #### 6 30-4, 70102-7 #### [facility] CLIA [id number] [address] [place], [place] [address] [place] [address] [place] Clarity (Unsp spec) Cloudy Abnormal Clear [facility] Comment on above: Order Comment: Speci men Type: URINE SPECIMEN Ordering Facility: [facility] Address: [address] [place] [address] Performed By: #### 6 30-4, 68306-4 #### [facility] CLIA [id number] [address] [place] [address] [place] Color (U) Yellow Normal Yellow [facility] Comment on above: Order Comment: Speci men Type: URINE SPECIMEN Ordering Facility: [facility] Address: [address] [place] [address] Performed By: #### 6 30-4, 63496-3 #### [facility] CLIA [id number] [address] [place] [address] [place] Epithelial cells LM.HPF (Urine sed) [#/Area] Few Normal [facility] Comment on above: Order Comment: Speci men Type: URINE SPECIMEN Ordering Facility: [facility] Address: [address] [place] [address] Performed By: #### 6 30-4, 52005-5 #### [facility] CLIA [id number] [address] [place] [address] [place] Glucose Test strip (U) [Mass/Vol] Negative Normal Negative [facility] Comment on above: Order Comment: Speci men Type: URINE SPECIMEN Ordering Facility: [facility] Address: [address] [place] [address] Performed By: #### 6 30-4, 77398-5 #### [facility] CLIA [id number] [address] [place] [address] [place] Hemoglobin Ql (U) 2+ Abnormal Negative [facility] Comment on above: Order Comment: Speci men Type: URINE SPECIMEN Ordering Facility: [facility] Address: [address] [place], [place] [address] Performed By: #### 6 30-4, 21607-2 #### [facility] CLIA [id number] [address] [place] [address] [place] Ketones Ql (U) Negative Normal Negative [facility] Comment on above: Order Comment: Speci men Type: URINE SPECIMEN Ordering Facility: [facility] Address: [address] [place], [place] [address] Performed By: #### 6 30-4, 79848-1 #### [facility] CLIA [id number] [address] [place] [address] [place] Leukocyte esterase Test strip Ql (U) 3+ Abnormal Negative [facility] Comment on above: Order Comment: Speci men Type: URINE SPECIMEN Ordering Facility: [facility] Address: [address] [place] [address] Performed By: #### 6 30-4, 09198-3 #### [facility] CLIA [id number] [address] [place] [address] [place] Nitrite Ql (U) Positive Abnormal Negative [facility] Comment on above: Order Comment: Speci men Type: URINE SPECIMEN Ordering Facility: [facility] Address: [address] [place] [address] Performed By: #### 6 30-4, 79948-7 #### [facility] CLIA [id number] [address] [place] [address] [place] pH (U) 5.5 [pH] Normal 5.0-8.0 [facility] Comment on above: Order Comment: Speci men Type: URINE SPECIMEN Ordering Facility: [facility] Address: [address] [place] [address] Performed By: #### 6 30-4, 31505-5 #### [facility] CLIA [id number] [address] [place] [address] [place] Protein (U) [Mass/Vol] Normal [facility] Comment on above: Order Comment: Speci men Type: URINE SPECIMEN Ordering Facility: [facility] Address: [address] [place] [address] Result Comment: Visi ble blood causes falsely elevated results for analyte Protein. Due to this limitation, Protein will not be reported for patients whose urine contains visible blood. Performed By: #### 6 30-4, 28311-4 #### [facility] CLIA [id number] [address] [place] [address] [place] RBC LM.HPF (Urine sed) [#/Area] 6-10 /HPF Abnormal 0-3 /HPF [facility] Comment on above: Order Comment: Speci men Type: URINE SPECIMEN Ordering Facility: [facility] Address: [address] [place] [address] Performed By: #### 6 30-4, 92603-1 #### [facility] CLIA [id number] [address] [place] [address] [place] Specific gravity (U) [Rel density] 1.009 Normal 1.005-1.030 [facility] Comment on above: Order Comment: Speci men Type: URINE SPECIMEN Ordering Facility: [facility] Address: [address] [place] [address] Performed By: #### 6 30-4, 08814-1 #### [facility] CLIA [id number] [address] [place] [address] [place] Urobilinogen Ql (U) 0.2 EU/dL Normal 0.2-1.0 EU/dL [facility] Comment on above: Order Comment: Speci men Type: URINE SPECIMEN Ordering Facility: [facility] Address: [address] [place] [address] Performed By: #### 6 30-4, 52126-6 #### [facility] CLIA [id number] [address] [place] [address] [place] WBC LM.HPF (Urine sed) [#/Area] 11-25 /HPF Abnormal 0-5 /HPF [facility] Comment on above: Order Comment: Speci men Type: URINE SPECIMEN Ordering Facility: [facility] Address: [address] [place] [address] Performed By: #### 6 30-4, 10132-4 #### [facility] CLIA [id number] [address] [place] [address] [place] Covid-19 PCR (CVDTB)on SARS-CoV-2 (COVID-19) RNA LUANNE+probe Ql (Unsp spec) Not detected Normal NOT DETECTED [facility] Comment on above: Result Comment: This test is not yet approved or cleared by the [place] FDA. When there are no FDA-approved or cleared tests available, and other criteria are met, FDA can make tests available under an emergency access mechanism called an Emergency Use Authorization (EUA). The EUA for this test is supported by the [place] of Health and Human Service's (HHS's) declaration [...] SARS-CoV-2. Performed By: #### C VDTB #### [facility] [address] [place] [address] Dr. Juan Pablo Kaminski Bacteria Ur Culton 2 Bacteria identified Cx Nom (U) No growth (<1,000 CFU/ml) Normal [facility] Comment on above: Order Comment: Speci men Type: URINE SPECIMEN Ordering Facility: [facility] Address: [address] [place] [phone] Performed By: #### 6 30-4 #### [facility] CLIA [id number] [address] [place] [address] [id number] [address] [place] Basic metabolic 2000 panelon 11-07-2021 Anion gap [Moles/Vol] 10 mmol/L Normal 11-30 [facility] Comment on above: Order Comment: Speci men Type: URINE SPECIMEN Ordering Facility: [facility] Address: [address] [place] [phone] Performed By: #### 6 30-4, 76768-2 #### [facility] CLIA [id number] [address] [place] [address] [place] Calcium [Mass/Vol] 9.1 mg/dL Normal 8.5-10.2 [facility] Comment on above: Order Comment: Speci men Type: URINE SPECIMEN Ordering Facility: [facility] Address: [address] [place], [place] [address] Performed By: #### 6 30-4, 67032-6 #### [facility] CLIA [id number] [address] [place] [address] [place] Chloride [Moles/Vol] 95 mmol/L Low 97-105 [facility] Comment on above: Order Comment: Speci men Type: URINE SPECIMEN Ordering Facility: [facility] Address: [address] [place] [address] Performed By: #### 6 30-4, 54711-0 #### [facility] CLIA [id number] [address] [place] [address] [place] CO2 [Moles/Vol] 25 mmol/L Normal 22-30 [facility] Comment on above: Order Comment: Speci men Type: URINE SPECIMEN Ordering Facility: [facility] Address: [address] [place], [place] [address] Performed By: #### 6 30-4, 98099-8 #### [facility] CLIA [id number] [address] [place] [address] [place] Creatinine [Mass/Vol] 1.25 mg/dL High 0.73-1.22 [facility] Comment on above: Order Comment: Speci men Type: URINE SPECIMEN Ordering Facility: [facility] Address: [address] [place], [place] [address] Performed By: #### 6 30-4, 65756-3 #### [facility] CLIA [id number] [address] [place] [address] [place] ESTIMATED GLOMERULAR FILTRATION RATE 57 mL/min/1.73m??? Low >=60 [facility] Comment on above: Order Comment: Domonique garcia Type: URINE SPECIMEN Ordering Facility: [facility] Address: [address] [place], [place] [phone] Result Comment: Annalise mated Glomerular Filtration Rate [...] actual GFR. Performed By: #### 6 30-4, 35008-4 #### [facility] CLIA [id number] [address] [place] [address] [place] Glucose [Mass/Vol] 129 mg/dL High 74-99 [facility] Comment on above: Order Comment: Domonique garcia Type: URINE SPECIMEN Ordering Facility: [facility] Address: [address] [place], [place] [address] Result Comment: The [place] Diabetes Association (ADA) provides guidance for cutoff [...] Standards of Medical Care in Diabetes 2016, [place] [employer]. Diabetes Care. 2016.39(Suppl 1). Performed By: #### 6 30-4, 14780-9 #### [facility] CLIA [id number] [address] [place] [address] [place] Potassium [Moles/Vol] 4.6 mmol/L Normal 3.7-5.1 [facility] Comment on above: Order Comment: Speci men Type: URINE SPECIMEN Ordering Facility: [facility] Address: [address] [place], [place] [address] Performed By: #### 6 30-4, 52746-0 #### [facility] CLIA [id number] [address] [place] [address] [place] Sodium [Moles/Vol] 130 mmol/L Low 136-144 [facility] Comment on above: Order Comment: Speci men Type: URINE SPECIMEN Ordering Facility: [facility] Address: [address] [place] [address] Performed By: #### 6 30-4, 33997-7 #### [facility] CLIA [id number] [address] [place] [address] [place] Urea nitrogen [Mass/Vol] 23 mg/dL Normal 9-24 [facility] Comment on above: Order Comment: Speci men Type: URINE SPECIMEN Ordering Facility: [facility] Address: [address] [place] [address] Performed By: #### 6 30-4, 51155-6 #### [facility] CLIA [id number] [address] [place] [address] [place] CBC W Auto Differential pane l (Bld)on 11-07-2021 Basophils/100 WBC (Bld) 0.0 % Normal [facility] Comment on above: Order Comment: Speci men Type: URINE SPECIMEN Ordering Facility: [facility] Address: [address] [place], [place] [address] Performed By: #### 6 30-4, 26730-5 #### [facility] CLIA [id number] [address] [place] [address] [place] Differential cell count method Nom (Bld) Manual Normal [facility] Comment on above: Order Comment: Speci men Type: URINE SPECIMEN Ordering Facility: [facility] Address: [address] [place], [place] [address] Performed By: #### 6 30-4, 71414-5 #### [facility] CLIA [id number] [address] [place] [address] [place] Eosinophils (Bld) [#/Vol] 0.10 10*3/uL Normal <0.46 [facility] Comment on above: Order Comment: Speci men Type: URINE SPECIMEN Ordering Facility: [facility] Address: [address] [place], [place] [address] Performed By: #### 6 30-4, 88622-9 #### [facility] CLIA [id number] [address] [place] [address] [place] Eosinophils/100 WBC (Bld) 1.0 % Normal [facility] Comment on above: Order Comment: Speci men Type: URINE SPECIMEN Ordering Facility: [facility] Address: [address] [place] [address] Performed By: #### 6 30-4, 02431-0 #### [facility] CLIA [id number] [address] [place] [address] [place] Erythrocyte distribution width (RBC) [Ratio] 11.5 % Normal 11.5-15.0 [facility] Comment on above: Order Comment: Speci men Type: URINE SPECIMEN Ordering Facility: [facility] Address: [address] [place], [place] [address] Performed By: #### 6 30-4, 04715-2 #### [facility] CLIA [id number] [address] [place] [address] [place] Hematocrit (Bld) [Volume fraction] 39.8 % Normal 39.0-51.0 [facility] Comment on above: Order Comment: Speci men Type: URINE SPECIMEN Ordering Facility: [facility] Address: [address] [place], [place] [address] Performed By: #### 6 30-4, 10817-2 #### [facility] CLIA [id number] [address] [place] [address] [place] Hemoglobin (Bld) [Mass/Vol] 13.4 g/dL Normal 13.0-17.0 [facility] Comment on above: Order Comment: Speci men Type: URINE SPECIMEN Ordering Facility: [facility] Address: [address] [place] [address] Performed By: #### 6 30-4, 83508-0 #### [facility] CLIA [id number] [address] [place] [address] [place] Lymphocytes (Bld) [#/Vol] 1.67 10*3/uL Normal 1.00-4.00 [facility] Comment on above: Order Comment: Speci men Type: URINE SPECIMEN Ordering Facility: [facility] Address: [address] [place] [address] Performed By: #### 6 30-4, 97282-9 #### [facility] CLIA [id number] [address] [place] [address] OF [facility] Lymphocytes/100 WBC (Bld) 17.0 % Normal [facility] Comment on above: Order Comment: Speci men Type: URINE SPECIMEN Ordering Facility: [facility] Address: [address] [place] [address] Performed By: #### 6 30-4, 30088-7 #### [facility] CLIA [id number] [address] [place] [address] [place] MCH (RBC) [Entitic mass] 31.5 pg Normal 26.0-34.0 [facility] Comment on above: Order Comment: Speci men Type: URINE SPECIMEN Ordering Facility: [facility] Address: [address] [place] [address] Performed By: #### 6 30-4, 84804-4 #### [facility] CLIA [id number] [address] [place] [address] [place] MCHC (RBC) [Mass/Vol] 33.7 g/dL Normal 30.5-36.0 [facility] Comment on above: Order Comment: Speci men Type: URINE SPECIMEN Ordering Facility: [facility] Address: [address] [place], [place] [address] Performed By: #### 6 30-4, 01367-0 #### [facility] CLIA [id number] [address] [place] [address] [place] MCV (RBC) [Entitic vol] 93.4 fL Normal 80.0-100.0 [facility] Comment on above: Order Comment: Speci men Type: URINE SPECIMEN Ordering Facility: [facility] Address: [address] [place] [address] Performed By: #### 6 30-4, 69243-9 #### [facility] CLIA [id number] [address] [place] [address] [place] Neutrophils (Bld) [#/Vol] 6.29 10*3/uL Normal 1.45-7.50 [facility] Comment on above: Order Comment: Speci men Type: URINE SPECIMEN Ordering Facility: [facility] Address: [address] [place] [address] Performed By: #### 6 30-4, 01070-6 #### [facility] CLIA [id number] [address] [place] [address] [place] Neutrophils/100 WBC (Bld) 64.0 % Normal [facility] Comment on above: Order Comment: Speci men Type: URINE SPECIMEN Ordering Facility: [facility] Address: [address] [place] [id number] Performed By: #### 6 30-4, 44071-9 #### [facility] CLIA [id number] [address] [place] [address] [place] Nucleated RBC/100 WBC (Bld) [Ratio] 0.0 /100 WBC Normal [facility] Comment on above: Order Comment: Speci men Type: URINE SPECIMEN Ordering Facility: [facility] Address: [address] [place] [address] Performed By: #### 6 30-4, 92595-0 #### [facility] CLIA [id number] [address] [place] [address] [place] PLATELET ESTIMATE Adequate Normal [facility] Comment on above: Order Comment: Speci men Type: URINE SPECIMEN Ordering Facility: [facility] Address: [address] [place], [place] [address] Performed By: #### 6 30-4, 62552-5 #### [facility] CLIA [id number] [address] [place] [address] [place] Platelet mean volume (Bld) [Entitic vol] 10.2 fL Normal 9.0-12.7 [facility] Comment on above: Order Comment: Speci men Type: URINE SPECIMEN Ordering Facility: [facility] Address: [address] [place], [place] [address] Performed By: #### 6 30-4, 06566-4 #### [facility] CLIA [id number] [address] [place] [address] [place] Platelets (Bld) [#/Vol] 258 10*3/uL Normal 150-400 [facility] Comment on above: Order Comment: Speci men Type: URINE SPECIMEN Ordering Facility: [facility] Address: [address] [place], [place] [address] Performed By: #### 6 30-4, 74489-0 #### [facility] CLIA [id number] [address] [place] [address] [place] RBC (Bld) [#/Vol] 4.26 10*6/uL Normal 4.20-6.00 [facility] Comment on above: Order Comment: Speci men Type: URINE SPECIMEN Ordering Facility: [facility] Address: [address] [place], [place] [address] Performed By: #### 6 30-4, 27160-3 #### [facility] CLIA [id number] [address] [place] [address] [place] RED CELL MORPH Reviewed: unremarkable Normal [facility] Comment on above: Order Comment: Speci men Type: URINE SPECIMEN Ordering Facility: [facility] Address: [address] [place] [address] Performed By: #### 6 30-4, 44300-7 #### [facility] CLIA [id number] [address] [place] [address] [place] WAM - ABS BASO 0.00 k/uL Normal <0.11 [facility] Comment on above: Order Comment: Speci men Type: URINE SPECIMEN Ordering Facility: [facility] Address: [address] [place] [address] Performed By: #### 6 30-4, 18853-2 #### [facility] CLIA [id number] [address] [place] [address] [place] WAM - ABS MONO 1.77 k/uL High <0.87 [facility] Comment on above: Order Comment: Speci men Type: URINE SPECIMEN Ordering Facility: [facility] Address: [address] [place], [place] [address] Performed By: #### 6 30-4, 86910-2 #### [facility] CLIA [id number] [address] [place] [address] [place] WAM - MONO% 18.0 % Normal [facility] Comment on above: Order Comment: Speci men Type: URINE SPECIMEN Ordering Facility: [facility] Address: [address] [place], [place] [address] Performed By: #### 6 30-4, 29761-2 #### [facility] CLIA [id number] [address] [place] [address] [place] WAM ABSOLUTE NRBC <0.01 Normal <0.01 [facility] Comment on above: Order Comment: Speci men Type: URINE SPECIMEN Ordering Facility: [facility] Address: [address] [place] [id number] Performed By: #### 6 30-4, 28408-0 #### [facility] CLIA [id number] [address] [place] [address] [place] [facility] [place] WBC (Bld) [#/Vol] 9.83 10*3/uL Normal 3.70-11.00 [facility] Comment on above: Order Comment: Speci men Type: URINE SPECIMEN Ordering Facility: [facility] Address: [address] [place], [place] [id number] Performed By: #### 6 30-4, 10887-7 #### [facility] CLIA [id number] [address] [place] [address] [place] ED NOTEon 11-07-2021 ED NOTE HNO ID: [id number] Author: Yoshi Schumacher RN Service: ? Author Type: Registered Nurse Type: ED Notes Filed: 11/07/2021 5:14 PM Note Text: Pt provided with discharged instructions. Medications gone over and all questions answered. Pt. Left with steady gait with friend for a ride. [facility] ED NOTE HNO ID: [id number] Author: Flaquita Donnelly RN Service: ? Author Type: Registered Nurse Type: ED Notes Filed: 11/07/2021 1:24 PM Note Text: Pt to ED for urinary retention. Pt had appointment with Urology on Wednesday, but was not able to be seen. Pt denies pain, but reports pressure in the bladder. Pt states he is not able to urinate completely and reports dribbling. [facility] ED PROV NOTEon 11-07-2021 ED PROV NOTE HNO ID: [id number] Author: Keely Gutierrez DO Service: Emergency Medicine [...] this Wednesday with his urologist out of [place] but was notified that his urologist had [...] Abnormal; Notable for the following components: Abs [place] 1.77 (*) <0.87 k/uL All other components [...] cysts one of which is mildly complex. Deputy Sheriff: LIANA Transcribe Date/Time: Nov 07 2021 2:57P [...] at th (more content not included)... Normal [facility] US KIDNEY/BLADDERon 11-08-19 22 US KIDNEY/BLADDER * * *Final Report* * * DATE OF EXAM: Nov 07 2021 2:52PM [facility] 1055 - US KIDNEY/BLADDER / [...] cysts one of which is mildly complex. Deputy Sheriff: LIANA Transcribe Date/Time: Nov 07 2021 2:57P Dictated by : NEHEMIAS COLBERT MD This examination was interpreted and the report reviewed and electronically signed by: NEHEMIAS COLBERT MD on Nov 07 2021 3:09PM EST [id number] Normal [facility] Urinalysis complete panel (U )on 11-07-2021 Bilirubin Ql (U) Negative Normal Negative [facility] Comment on above: Order Comment: Speci men Type: URINE SPECIMEN Ordering Facility: [facility] Address: [address] [place] [address] Performed By: #### 6 30-4, 60659-8 #### [facility] CLIA [id number] [address] [place] [address] [place] [address] [place] Clarity (Unsp spec) Clear Normal Clear [facility] Comment on above: Order Comment: Speci men Type: URINE SPECIMEN Ordering Facility: [facility] Address: [address] [place], [place] [address] Performed By: #### 6 30-4, 39013-5 #### [facility] CLIA [id number] [address] [place] [address] [place] Color (U) Yellow Normal Yellow [facility] Comment on above: Order Comment: Speci men Type: URINE SPECIMEN Ordering Facility: [facility] Address: [address] [place], [place] [address] Performed By: #### 6 30-4, 79349-1 #### [facility] CLIA [id number] [address] [place] [address] [place] Epithelial cells LM.HPF (Urine sed) [#/Area] Few Normal [facility] Comment on above: Order Comment: Speci men Type: URINE SPECIMEN Ordering Facility: [facility] Address: [address] [place], [place] [address] Performed By: #### 6 30-4, 11692-1 #### [facility] CLIA [id number] [address] [place] [address] [place] Glucose Test strip (U) [Mass/Vol] Negative Normal Negative [facility] Comment on above: Order Comment: Speci men Type: URINE SPECIMEN Ordering Facility: [facility] Address: [address] [place], [place] [address] Performed By: #### 6 30-4, 33182-6 #### [facility] CLIA [id number] [address] [place] [address] [place] Hemoglobin Ql (U) Negative Normal Negative [facility] Comment on above: Order Comment: Speci men Type: URINE SPECIMEN Ordering Facility: [facility] Address: [address] [place], [place] [address] Performed By: #### 6 30-4, 86475-4 #### [facility] CLIA [id number] [address] [place] [address] [place] Hyaline casts (Urine sed) [#/Area] 1-3 /LPF Abnormal 0 /LPF [facility] Comment on above: Order Comment: Speci men Type: URINE SPECIMEN Ordering Facility: [facility] Address: [address] [place] [address] Performed By: #### 6 30-4, 53550-5 #### [facility] CLIA [id number] [address] [place] [address] [place] Ketones Ql (U) Trace Abnormal Negative [facility] Comment on above: Order Comment: Speci men Type: URINE SPECIMEN Ordering Facility: [facility] Address: [address] [place] [address] Performed By: #### 6 30-4, 20902-4 #### [facility] CLIA [id number] [address] [place] [address] [place] Leukocyte esterase Test strip Ql (U) Negative Normal Negative [facility] Comment on above: Order Comment: Speci men Type: URINE SPECIMEN Ordering Facility: [facility] Address: [address] [place] [address] Performed By: #### 6 30-4, 20600-0 #### [facility] CLIA [id number] [address] [place] [address] [place] Nitrite Ql (U) Negative Normal Negative [facility] Comment on above: Order Comment: Speci men Type: URINE SPECIMEN Ordering Facility: [facility] Address: [address] [place], [place] [address] Performed By: #### 6 30-4, 48454-6 #### [facility] CLIA [id number] [address] [place] [address] [place] pH (U) 5.5 [pH] Normal 5.0-8.0 [facility] Comment on above: Order Comment: Speci men Type: URINE SPECIMEN Ordering Facility: [facility] Address: [address] [place] [address] Performed By: #### 6 30-4, 44808-8 #### [facility] CLIA [id number] [address] [place] [address] Protein (U) [Mass/Vol] Negative Normal Negative [facility] Comment on above: Order Comment: Speci men Type: URINE SPECIMEN Ordering Facility: [facility] Address: [address] [place] [address] Performed By: #### 6 30-4, 50081-9 #### [facility] CLIA [id number] [address] [place] [address] [place] RBC LM.HPF (Urine sed) [#/Area] 0-3 /HPF Normal 0-3 /HPF [facility] Comment on above: Order Comment: Speci men Type: URINE SPECIMEN Ordering Facility: [facility] Address: [address] [place] [address] Performed By: #### 6 30-4, 09865-6 #### [facility] CLIA [id number] [address] [place] [address] [place] Specific gravity (U) [Rel density] 1.024 Normal 1.005-1.030 [facility] Comment on above: Order Comment: Speci men Type: URINE SPECIMEN Ordering Facility: [facility] Address: [address] [place] [address] Performed By: #### 6 30-4, 19144-9 #### [facility] CLIA [id number] [address] [place] [address] [place] Urobilinogen Ql (U) 0.2 EU/dL Normal 0.2-1.0 EU/dL [facility] Comment on above: Order Comment: Speci men Type: URINE SPECIMEN Ordering Facility: [facility] Address: [address] [place] [address] Performed By: #### 6 30-4, 79505-0 #### [facility] CLIA [id number] [address] [place] [address] [place] WBC LM.HPF (Urine sed) [#/Area] 0-5 /HPF Normal 0-5 /HPF [facility] Comment on above: Order Comment: Speci men Type: URINE SPECIMEN Ordering Facility: [facility] Address: [address] [place] [address] Performed By: #### 6 30-4, 59925-1 #### [facility] CLIA [id number] [address] [place] [address] [place] Ambulatory Visit Summaryon 0 10-28-2021 Ambulatory Visit Summary NORBERTO WASHINGTON :1940 Visit Date:10/28/2021 Ambulatory Visit Instructions Your Diagnosis BPH with urinary obstruction Nocturia Post-void dribbling Incomplete emptying of bladder Urinary incontinence Tests Performed Urnls Dip Stick Auto w/o Microscopy POC 79122 Your Care Team Attending Physician - Paul [...] Where: [facility] [address] , [place] [address]- Medications What How Much When Instructions Unchanged [...] Urnls Dip Stick Auto w/o Microscopy POC 56324 (10/28/2021) Bilirubin Urine Dipstick - Negative Blood Urine Dipstick - Negative Glucose Urine Dipstick - Negative Ketones Urine Dipstick - Negative Leukocytes Urine Dipstick - Negative Nitrite Urine Dipstick - Negative Protein Urine Dipstick - Negative Specific [place] Urine Dipstick - 1.015 Urine Appearance Urine [...] ? Urina (more content not included)... Normal [facility] Patient Educationon 10-29-19 Patient Education Urology Benign [...] Follow these instructions at home: ? Take cyem-ucd-sdkpdzk and prescription medicines only as told by [...] You d (more content not included)... Normal [facility] Urology Office/Clinic Noteon 10-28-2021 Urology Office/Clinic Note [...] management of this change in voiding pattern. [facility] Staff Norberto is here today for a [...] urine and/or bladder capacity by US- non-imaging 65032 PSA Total Urnls Dip Stick Auto w/o Microscopy POC 08644 Urology Procedure Order 2. Nocturia (R35.1: Nocturia) moderate, Variable 2-5 times per night Ordered: Measure Post Void residual urine and/or bladder capacity by US- non-imaging 63873 PSA Total Urology Procedure Order 3. Post-void dribbling (N39.43: Post-v (more content not included)... Normal [facility] Comment on above: Result Comment: Elec tronically Signed By: Billy Connolly MD, Paul Valdes\.br\Date and Time Signed: 10/28/21 08:47 EDT\.br\Electronically Co-Signed By: Jessie Rivera\.br\Date and Time Co-Signed: 10/28/21 08:39 EDT MICROALBUMIN URINEon 022 Albumin, Urine 5.6 ug/mL Normal Not Estab. [facility] Comment on above: Performed By: #### M ALBLC #### [facility] [address] [place] [address] Dr. Juan Pablo Kaminski US CAROTID ART [...] SAMY TORRES Date: 2021-10-23 17:19 Normal [facility] CBC AUTO DIFFon 10-21-2021 BASO # 0.0 103/ul Normal 0.0-0.1 [facility] Comment on above: Performed By: #### A 1C #### [facility] [address] [place] [address] Dr. Juan Pablo Kaminski Basophils/100 WBC (Bld) 0.5 % Normal 0.2-2.0 [facility] Comment on above: Performed By: #### A 1C #### [facility] [address] [place] [address] Dr. Juan Pablo Kaminski EO # 0.3 103/ul Normal 0.0-0.7 [facility] Comment on above: Performed By: #### A 1C #### [facility] [address] [place] [address] Dr. Juan Pablo Kaminski Eosinophils/100 WBC (Bld) 3.6 % Normal 0.9-7.0 [facility] Comment on above: Performed By: #### A 1C #### [facility] [address] [place] [address] Dr. Juan Pablo Kaminski Erythrocyte distribution width (RBC) [Ratio] 11.1 % Normal 11.0-15.0 [facility] Comment on above: Performed By: #### A 1C #### [facility] [address] [place] [address] Dr. Juan Pablo Kaminski Hematocrit (Bld) [Volume fraction] 41.8 % Critically low 42.0-54.0 [facility] Comment on above: Performed By: #### A 1C #### [facility] [address] [place] [address] Dr. Juan Pablo Kaminski Hemoglobin (Bld) [Mass/Vol] 14.1 g/dL Normal 14.0-18.0 [facility] Comment on above: Performed By: #### A 1C #### [facility] [address] [place] [address] Dr. Juan Pablo Kaminski IG # 0.03 10e3/ul Normal 0.00-0.03 [facility] Comment on above: Performed By: #### A 1C #### [facility] [address] [place] [address] Dr. Juan Pablo Kaminski IG % 0.4 % Normal 0.0-0.5 [facility] Comment on above: Performed By: #### A 1C #### [facility] [address] [place] [address] Dr. Juan Pablo Kaminski LYMPH # 2.2 103/ul Normal 1.2-3.8 [facility] Comment on above: Performed By: #### A 1C #### [facility] [address] [place] [address] Dr. Juan Pablo Kaminski Lymphocytes/100 WBC (Bld) 29.4 % Normal 20.5-60.0 [facility] Comment on above: Performed By: #### A 1C #### [facility] [address] [place] [address] Dr. Juan Pablo Kaminski MANUAL DIFF REQ NO Normal [facility] Comment on above: Performed By: #### A 1C #### [facility] [address] [address] [address] Juan Pablo Kaminski MCH (RBC) [Entitic mass] 31.8 pg Normal 25.9-34.0 [facility] Comment on above: Performed By: #### A 1C #### [facility] [address] [place] [address] Dr. Juan Pablo Kaminski MCHC (RBC) [Mass/Vol] 33.7 g/dL Normal 29.9-35.2 [facility] Comment on above: Performed By: #### A 1C #### [facility] [address] [place] [address] Dr. Juan Pablo Kaminski MCV (RBC) [Entitic vol] 94.1 fL Critically high 80.0-94.0 [facility] Comment on above: Performed By: #### A 1C #### [facility] [address] [place] [address] Dr. Juan Pablo Kaminski MONO # 0.9 103/ul Critically high 0.3-0.8 [facility] Comment on above: Performed By: #### A 1C #### [facility] [address] [place] [address] Dr. Juan Pablo Kaminski Monocytes/100 WBC (Bld) 11.7 % Normal 1.7-12.0 [facility] Comment on above: Performed By: #### A 1C #### [facility] [address] [place] [address] Dr. Juan Pablo Kaminski NEUT # 4.0 103/ul Normal 1.4-6.5 [facility] Comment on above: Performed By: #### A 1C #### [facility] [address] [place] [address] Dr. Juan Pablo Kaminski Neutrophils/100 WBC (Bld) 54.4 % Normal 43.0-75.0 [facility] Comment on above: Performed By: #### A 1C #### [facility] [address] [place] [address] Dr. Juan Pablo Kaminski Platelet mean volume (Bld) [Entitic vol] 8.6 fL Critically low 9.5-13.5 [facility] Comment on above: Performed By: #### A 1C #### [facility] [address] [address] [address] Juan Pablo Kaminski PLT 231 103/ul Normal 150-450 [facility] Comment on above: Performed By: #### A 1C #### [facility] [address] [place] [address] Dr. Juan Pablo Kaminski RBC 4.44 106/ul Critically low 4.70-6.10 [facility] Comment on above: Performed By: #### A 1C #### [facility] [address] [place] [address] Dr. Juan Pablo Kaminski WBC 7.3 103/ul Normal 4.0-11.0 [facility] Comment on above: Performed By: #### A 1C #### [facility] [address] [place] [address] Dr. Juan Pablo Kaminski DIRECT LDLon 10-21-2021 Cholesterol in LDL [Mass/Vol] 106 mg/dL Normal [facility] Comment on above: Performed By: #### A LT, BMP, DLDL #### [facility] [address] [place] [address] Dr. Juan Pablo Kaminski DLDL NORMAL SEE BELOW Normal [facility] Comment on above: Result Comment: <100 mg/dl OPTIMAL 100 - 129 mg/dl NEAR OR ABOVE OPTIMAL 130 - 159 mg/dl BORDERLINE HIGH 160 - 189 mg/dl HIGH >190 mg/dl VERY HIGH Performed By: #### A LT, BMP, DLDL #### [facility] [address] [place] [address] Dr. Juan Pablo Kaminski GLYCOHEMOGLOBIN A1Con 2021 ADA RECOMMENDATION SEE BELOW Normal [facility] Comment on above: Result Comment: ADA RECOMMENDED LIMIT 4.0 - 6.0 ADA THERAPEUTIC TARGET < 7.0 ACTION SUGGESTED > 7.0 Performed By: #### A 1C #### [facility] [address] [place] [address] Dr. Juan Pablo Kaminski Glucose [Mass/Vol] 120 mg/dL Normal [facility] Comment on above: Performed By: #### A 1C #### [facility] [address] [place] [address] Dr. Juan Pablo Kaminski HbA1c (Bld) [Mass fraction] 5.8 % Normal 4.5-6.2 [facility] Comment on above: Performed By: #### A 1C #### [facility] [address] [place] [address] Dr. Juan Pablo Kaminski PROF CHEM 8 (BAS METB)on Anion gap [Moles/Vol] 12.7 mmol/L Normal [facility] Comment on above: Performed By: #### A 1C #### [facility] [address] [place] [address] Dr. Juan Pablo Kaminski Calcium [Mass/Vol] 8.7 mg/dL Normal 8.5-10.1 [facility] Comment on above: Performed By: #### A 1C #### [facility] [address] [place] [address] Dr. Juan Pablo Kaminski Chloride [Moles/Vol] 98 mmol/L Normal 98-107 [facility] Comment on above: Performed By: #### A 1C #### [facility] [address] [place] [address] Dr. Juan Pablo Kaminski CO2 [Moles/Vol] 28.0 mmol/L Normal 21.0-32.0 [facility] Comment on above: Performed By: #### A 1C #### [facility] [address] [place] [address] Dr. Juan Pablo Kaminski Creatinine [Mass/Vol] 1.07 mg/dL Normal 0.70-1.30 [facility] Comment on above: Performed By: #### A 1C #### [facility] [address] [place] [address] Dr. Juan Pablo Kaminski EGFR-AF SLOVENIAN >60 Normal >=60 [facility] Comment on above: Performed By: #### A 1C #### [facility] [address] [place] [address] Dr. Juan Pablo Kaminski EGFR-NON AF SLOVENIAN >60 Normal >=60 [facility] Comment on above: Performed By: #### A 1C #### [facility] [address] [place] [address] Dr. Juan Pablo Kaminski Glucose [Mass/Vol] 133 mg/dL Critically high 74-106 [facility] Comment on above: Performed By: #### A 1C #### [facility] [address] [place] [address] Dr. Juan Pablo Kaminski Potassium [Moles/Vol] 4.7 mmol/L Normal 3.5-5.1 [facility] Comment on above: Performed By: #### A 1C #### [facility] [address] [place] [address] Dr. Juan Pablo Kaminski Sodium [Moles/Vol] 134 mmol/L Critically low 136-145 [facility] Comment on above: Performed By: #### A 1C #### [facility] [address] [place], [place] [address] Dr. Juan Pablo Kaminski Urea nitrogen [Mass/Vol] 17.0 mg/dL Normal 7.0-18.0 [facility] Comment on above: Performed By: #### A 1C #### [facility] [address] [place] [address] Dr. Juan Pablo Kaminski Urea nitrogen/Creatinine [Mass ratio] 15.9 mg/mg Normal [facility] Comment on above: Performed By: #### A 1C #### [facility] [address] [place] [address] Dr. Juan Pablo [facility]-2021 ALT [Catalytic activity/Vol] 31 U/L Normal 16-63 [facility] Comment on above: Performed By: #### A 1C #### [facility] [address] [place] [address] Dr. Juan Pablo Kaminski GLYCOHEMOGLOBIN A1Con 2021 ADA RECOMMENDATION SEE BELOW Normal [facility] Comment on above: Result Comment: ADA RECOMMENDED LIMIT 4.0 - 6.0 ADA THERAPEUTIC TARGET < 7.0 ACTION SUGGESTED > 7.0 Performed By: #### A 1C #### [facility] [address] [place] [address] Dr. Juan Pablo Kaminski Glucose [Mass/Vol] 131 mg/dL Normal [facility] Comment on above: Performed By: #### A 1C #### [facility] [address] [place] [address] Dr. Juan Pablo Kaminski HbA1c (Bld) [Mass fraction] 6.2 % Normal 4.5-6.2 [facility] Comment on above: Performed By: #### A 1C #### [facility] [address] [address] [address] Juan Pablo Kaminski Vital Signs Date Time Vital Sign Value Performing Clinician Faci lity 03-17-2023 10:30-0500 Body height 190.5 cm Campbell Ball Other [facility] Other 03-17-2023 10:30-0500 Body mass index (BMI) [Ratio] 27.55 kg/m2 Campbell Ball Other [facility] Other 03-17-2023 10:30-0500 Body weight 99.97 kg Campbell Ball Other [facility] Other 03-17-2023 10:30-0500 Diastolic blood pressure 67 mm[Hg] Campbell Ball Other [facility] Other 03-17-2023 10:30-0500 Respiratory rate 12 /min Campbell Ball Other [facility] Other 03-17-2023 10:30-0500 Systolic blood pressure 159 mm[Hg] Campbell Ball Other [facility] Other 02-23-2023 09:30-0500 Body height 190.5 cm Campbell Ball Other [facility] Other 02-23-2023 09:30-0500 Body mass index (BMI) [Ratio] 28.02 kg/m2 Campbell Ball Other [facility] Other 02-23-2023 09:30-0500 Body weight 101.7 kg Campbell Ball Other [facility] Other 02-23-2023 09:30-0500 Diastolic blood pressure 78 mm[Hg] Campbell Ball Other [facility] Other 02-23-2023 09:30-0500 Respiratory rate 12 /min Campbell Ball Other [facility] Other 02-23-2023 09:30-0500 Systolic blood pressure 157 mm[Hg] Campbell Ball Other [facility] Other 02-19-2023 10:45-0500 Body height 190.5 cm Campbell Ball Other [facility] Other 02-19-2023 10:45-0500 Body mass index (BMI) [Ratio] 28 kg/m2 Campbell Ball Other [facility] Other 02-19-2023 10:45-0500 Body weight 101.61 kg Campbell Ball Other [facility] Other 02-19-2023 10:45-0500 Diastolic blood pressure 72 mm[Hg] Campbell Ball Other [facility] Other 02-19-2023 10:45-0500 Respiratory rate 12 /min Campbell Ball Other [facility] Other 02-19-2023 10:45-0500 Systolic blood pressure 144 mm[Hg] Campbell Ball Other [facility] Other 02-02-2023 13:37-0500 Body weight 102.06 kg Leticia Milian APRN.ARC WELDER APPRENTICE Work Phone: [facility] 02-02-2023 13:37-0500 Diastolic blood pressure 70 mm[Hg] Leticia Rukhsana BOOGIEARC WELDER APPRENTICE Work Phone: [facility] 02-02-2023 13:37-0500 Heart rate 65 /min Leticia Milian COUNSELOR DORMITORY.ARC WELDER APPRENTICE Work Phone: [facility] 02-02-2023 13:37-0500 Systolic blood pressure 146 mm[Hg] Leticia Milian COUNSELOR DORMITORY.ARC WELDER APPRENTICE Work Phone: [facility] 09-22-2022 12:15-0400 Body height 190.5 cm Campbell Ball Other [facility] Other 09-22-2022 12:15-0400 Diastolic blood pressure 82 mm[Hg] Campbell Ball Other [facility] Other 09-22-2022 12:15-0400 Systolic blood pressure 135 mm[Hg] Campbell Ball Other [facility] Other 09-17-2022 09:00-0400 Body height 190.5 cm Campbell Ball Other [facility] Other 09-17-2022 09:00-0400 Body mass index (BMI) [Ratio] 27.57 kg/m2 Campbell Ball Other [facility] Other 09-17-2022 09:00-0400 Body weight 100.06 kg Campbell Ball Other [facility] Other 09-17-2022 09:00-0400 Diastolic blood pressure 62 mm[Hg] Campbell Ball Other [facility] Other 09-17-2022 09:00-0400 Respiratory rate 12 /min Campbell Ball Other [facility] Other 09-17-2022 09:00-0400 Systolic blood pressure 128 mm[Hg] Campbell Ball Other [facility] Other 06-18-2022 10:00-0400 Body height 190.5 cm Campbell Ball Other [facility] Other 06-18-2022 10:00-0400 Body mass index (BMI) [Ratio] 28.02 kg/m2 Campbell Ball Other [facility] Other 06-18-2022 10:00-0400 Body weight 101.7 kg Campbell Ball Other [facility] Other 06-18-2022 10:00-0400 Diastolic blood pressure 62 mm[Hg] Campbell Ball Other [facility] Other 06-18-2022 10:00-0400 Respiratory rate 12 /min Campbell Ball Other [facility] Other 06-18-2022 10:00-0400 Systolic blood pressure 119 mm[Hg] Campbell Ball Other [facility] Other 04-08-2022 12:00-0500 Body height 190.5 cm Campbell Ball Other [facility] Other 04-08-2022 12:00-0500 Body mass index (BMI) [Ratio] 27.82 kg/m2 Campbell Ball Other [facility] Other 04-08-2022 12:00-0500 Body temperature 97.1 [degF] Campbell Ball Other [facility] Other 04-08-2022 12:00-0500 Body weight 100.97 kg Campbell Ball Other [facility] Other 04-08-2022 12:00-0500 Diastolic blood pressure 68 mm[Hg] Campbell Ball Other [facility] Other 04-08-2022 12:00-0500 SaO2% (BldA) [Mass fraction] 97 % Campbell Ball Other [facility] Other 04-08-2022 12:00-0500 Systolic blood pressure 124 mm[Hg] Campbell Ball Other [facility] Other 03-20-2022 10:00-0500 Body height 190.5 cm Campbell Ball Other [facility] Other 03-20-2022 10:00-0500 Body mass index (BMI) [Ratio] 27.95 kg/m2 Campbell Ball Other [facility] Other 03-20-2022 10:00-0500 Body weight 101.42 kg Campbell Ball Other [facility] Other 03-20-2022 10:00-0500 Diastolic blood pressure 60 mm[Hg] Campbell Ball Other [facility] Other 03-20-2022 10:00-0500 Respiratory rate 12 /min Campbell Ball Other [facility] Other 03-20-2022 10:00-0500 Systolic blood pressure 112 mm[Hg] Campbell Ball Other [facility] Other 01-08-2022 08:47-0400 Body weight 97.52 kg Leonard Dugan MD Work Phone: [facility] 01-08-2022 08:47-0400 Diastolic blood pressure 61 mm[Hg] Leonard Dugan MD Work Phone: [facility] 01-08-2022 08:47-0400 Heart rate 72 /min Leonard Dugan MD Work Phone: [facility] 01-08-2022 08:47-0400 Systolic blood pressure 139 mm[Hg] Leonard Dugan MD Work Phone: [facility] 12-26-2021 08:32-0400 Body temperature 98 [degF] DO Campbell Ball Work Phone: [facility] 12-26-2021 08:32-0400 Diastolic blood pressure 62 mm[Hg] DO Campbell Ball Work Phone: [facility] 12-26-2021 08:32-0400 Heart rate 75 /min DO Campbell Ball Work Phone: [facility] 12-26-2021 08:32-0400 Respiratory rate 18 /min DO Campbell Ball Work Phone: [facility] 12-26-2021 08:32-0400 SaO2% (BldA) [Mass fraction] 98 % DO Campbell Ball Work Phone: [facility] 12-26-2021 08:32-0400 Systolic blood pressure 146 mm[Hg] DO Campbell Ball Work Phone: [facility] 12-17-2021 16:22-0400 Body height 190.5 cm DO Campbell Ball Work Phone: [facility] 12-17-2021 16:22-0400 Body weight 97.52 kg DO Campbell Ball Work Phone: [facility] 12-17-2021 16:19-0400 Body temperature 98.4 [degF] DO Campbell Ball Work Phone: [facility] 12-17-2021 16:19-0400 Diastolic blood pressure 63 mm[Hg] DO Campbell Ball Work Phone: [facility] 12-17-2021 16:19-0400 Heart rate 66 /min DO Campbell Ball Work Phone: [facility] 12-17-2021 16:19-0400 Respiratory rate 16 /min DO Campbell Ball Work Phone: [facility] 12-17-2021 16:19-0400 SaO2% (BldA) [Mass fraction] 96 % DO Campbell Ball Work Phone: [facility] 12-17-2021 16:19-0400 Systolic blood pressure 135 mm[Hg] DO Campbell Ball Work Phone: [facility] 12-16-2021 14:41-0400 Diastolic blood pressure 62 mm[Hg] Leonard Dugan MD Work Phone: [facility] 12-16-2021 14:41-0400 Heart rate 69 /min Leonard Dugan MD Work Phone: [facility] 12-16-2021 14:41-0400 Respiratory rate 16 /min Leonard Dugan MD Work Phone: [facility] 12-16-2021 14:41-0400 Systolic blood pressure 141 mm[Hg] Leonard Dugan MD Work Phone: [facility] 12-11-2021 18:25-0400 Body temperature 97.5 [degF] DO Campbell Ball Work Phone: [facility] 12-11-2021 18:25-0400 Diastolic blood pressure 88 mm[Hg] DO Campbell Ball Work Phone: [facility] 12-11-2021 18:25-0400 Heart rate 67 /min DO Campbell Ball Work Phone: [facility] 12-11-2021 18:25-0400 Respiratory rate 20 /min DO Campbell Ball Work Phone: [facility] 12-11-2021 18:25-0400 SaO2% (BldA) [Mass fraction] 99 % DO Campbell Ball Work Phone: [facility] 12-11-2021 18:25-0400 Systolic blood pressure 175 mm[Hg] DO Campbell Ball Work Phone: [facility] 12-11-2021 16:57-0400 Body height 190.5 cm DO Campbell Ball Work Phone: [facility] 12-11-2021 16:57-0400 Body weight 98.5 kg DO Campbell Ball Work Phone: [facility] 12-10-2021 10:50-0400 Body weight 95.25 kg Nurse Emelia Work Phone: [facility] 12-10-2021 10:50-0400 Diastolic blood pressure 80 mm[Hg] Nurse Emelia Work Phone: [facility] 12-10-2021 10:50-0400 Heart rate 59 /min Nurse Emelia Work Phone: [facility] 12-10-2021 10:50-0400 Systolic blood pressure 152 mm[Hg] Nurse Emelia Work Phone: [facility] 12-09-2021 14:27-0400 Body weight 95.25 kg [employer] [place] Work Phone: [facility] 12-09-2021 14:27-0400 Diastolic blood pressure 68 mm[Hg] [employer] [place] Work Phone: [facility] 12-09-2021 14:27-0400 Heart rate 70 /min [employer] [place] Work Phone: [facility] 12-09-2021 14:27-0400 Systolic blood pressure 164 mm[Hg] [employer] [place] Work Phone: [facility] 11-12-2021 11:23-0400 Body weight 96.16 kg Leonard Dugan MD Work Phone: [facility] 11-12-2021 11:23-0400 Diastolic blood pressure 73 mm[Hg] Leonard Dugan MD Work Phone: [facility] 11-12-2021 11:23-0400 Heart rate 56 /min Leonard Dugan MD Work Phone: [facility] 11-12-2021 11:23-0400 Systolic blood pressure 162 mm[Hg] Leonard Dugan MD Work Phone: [facility] Encounters Encounter Date Encounter Type Care Provider Facility Start: 03-17-2023 End: 03-17-2023 ambulatory Campbell Naranjo Other [facility] Other Start: 03-17-2023 Transitional care manage srvc 14 day discharge Campbell Naranjo [facility] Start: 03-04-2023 End: 03-04-2023 ambulatory Campbell Naranjo Other [facility] Other Start: 03-04-2023 Telephone encounter [facility] Start: 02-23-2023 End: 02-23-2023 ambulatory Campbell Naranjo Other [facility] Other Start: 02-23-2023 Office outpatient vi sit 15 minutes Campbell Naranjo [facility] Start: 02-23-2023 Telephone encounter Campbell Naranjo [facility] Start: 02-19-2023 End: 02-19-2023 ambulatory Campbell Naranjo Other [facility] Other Start: 02-19-2023 Office outpatient vi sit 15 minutes Campbell Naranjo [facility] Start: 02-02-2023 End: 02-02-2023 ambulatory LETICIA MILIAN Facility:[facility] Start: 02-02-2023 End: 02-02-2023 Patient encounter procedure Leticia Milian COUNSELOR DORMITORY.ARC WELDER APPRENTICE Work Phone: Urology Comment on above: BPH with obstruction /lower urinary tract symptoms (Primary Dx); Recurrent UTI; Weak urinary stream Start: 01-19-2023 End: 01-19-2023 ambulatory LETICIA MILIAN Facility:[facility] Start: 01-13-2023 End: 01-13-2023 Emergency department patient visit Campbell Naranjo Facility:[facility] Start: 01-13-2023 End: 01-13-2023 Emergency department patient visit DO Campbell Naranjo Work Phone: [facility] Work Phone: Start: 12-21-2022 End: 12-21-2022 ambulatory Campbell Naranjo Other [facility] Other Start: 12-21-2022 Telephone encounter Campbell Ro [facility] Start: 09-22-2022 End: 09-22-2022 ambulatory Campbell Naranjo Other [facility] Other Start: 09-22-2022 Office outpatient vi sit 15 minutes Campbell Quentin [facility] Start: 09-20-2022 End: 09-20-2022 ambulatory Cornell Baptiste Other [facility] Other Start: 09-20-2022 Encounter by [employer] raissa Baptiste [facility] Start: 09-17-2022 End: 09-17-2022 ambulatory Campbell Naranjo Other [facility] Other Start: 09-17-2022 Office outpatient vi sit 25 minutes Campbell Naranjo [facility] Start: 09-15-2022 End: 09-15-2022 ambulatory Cornell Baptiste Other [facility] Other Start: 09-15-2022 Encounter by [employer] raissa Baptiste [facility] Start: 07-28-2022 End: 07-28-2022 ambulatory LETICIA MILIAN Facility:[facility] Start: 07-20-2022 End: 07-20-2022 ambulatory LETICIA MILIAN Facility:[facility] Start: 06-25-2022 End: 06-26-[address] CAMPBELL NARANJO Facility:[facility] Start: 06-18-2022 End: 06-18-2022 ambulatory Campbell Naranjo Other [facility] Other Start: 06-18-2022 Office outpatient vi sit 25 minutes Campbell Quentin [facility] Start: 06-02-2022 End: 06-03-[address] CAMPBELL NARANJO Facility:[facility] Start: 04-08-2022 End: 04-08-2022 ambulatory Campbell Naranjo Other [facility] Other Start: 04-08-2022 Office outpatient vi sit 15 minutes Campbell Naranjo [facility] Start: 03-24-2022 End: 03-24-2022 ambulatory Campbell Naranjo Other [facility] Other Start: 03-24-2022 Telephone encounter Campbell Naranjo [facility] Start: 03-20-2022 Office outpatient vi sit 25 minutes Campbell Naranjo [facility] Start: 03-20-2022 End: 03-21-[address] CAMPBELL NARANJO [facility] Other Start: 01-08-2022 End: 01-08-2022 Patient encounter procedure Leonard Dugan MD Work Phone: Urology Comment on above: Chronic epididymitis (Primary Dx); Left hydrocele; Weak urinary stream; BPH without obstruction/lower urinary tract symptoms; Epididymitis Start: 01-07-2022 Refill Leonard Dugan MD Work Phone: Urology Comment on above: Refill Request Start: 12-26-2021 End: 12-26-2021 ambulatory DO Campbell Naranjo Work Phone: [facility] Work Phone: Start: 12-26-2021 End: 12-26-2021 Discharged Recurring DO Campbell Naranjo Work Phone: [facility]Infusion Therapy - O/P Start: 12-25-2021 End: 12-26-[address] CAMPBELL NARANJO Facility: Start: 12-17-2021 End: 12-17-2021 Emergency department patient visit DO Campbell Naranjo Work Phone: [facility] Start: 12-16-2021 End: 12-16-2021 Patient encounter procedure Leonard Dugan MD Work Phone: Urology Comment on above: Retention of urine ( Primary Dx); Flaccid bladder Start: 12-15-2021 Telephone encounter Leticia puentes APRN.CNP Work Phone: Urology Comment on above: Patient Update Start: 12-11-2021 End: 12-11-2021 Emergency department patient visit DO Campbell Naranjo Work Phone: [facility] Start: 12-11-2021 Telephone encounter Leonard Dugan MD Work Phone: Urology Comment on above: Patient Update Start: 12-10-2021 End: 12-10-2021 Nursing evaluation of patient and report Nurse [facility] Emelia Work Phone: Urology Comment on above: Urinary tract infect ion without hematuria, site unspecified (Primary Dx); Feeling of incomplete bladder emptying; Benign prostatic hyperplasia with urinary retention Start: 12-09-2021 End: 12-09-2021 Nursing evaluation of patient and report [employer] [facility] Work Phone: Urology Comment on above: Urinary frequency (P rimary Dx); Urinary urgency; Urinary straining; Feeling of incomplete bladder emptying Start: 12-08-2021 Telephone encounter Leonard Dugan MD Work Phone: Urology Comment on above: Appointment (Resched ule catheter change) Start: 11-26-2021 End: 11-27-2021 Emergency department patient visit CAMPBELL NARANJO Facility:[facility] Start: 11-21-2021 Telephone encounter Leonard Dugan [...] Emergency department patient visit RAN LEES JR Facility:[facility] Start: 10-23-2021 End: 10-24-[address] CAMPBELL NARANJO Facility:[facility] Start: 10-21-2021 End: 10-22-[address] CAMPBELL NARANJO Facility:[facility] Start: 10-20-2021 Adult health examination Campbell Naranjo Other [facility] Other Start: 07-17-2021 End: 07-18-[address] CAMPBELL NARANJO Facility: Start: 01-09-2020 End: 01-09-2020 Pre-procedure evaluation check Campbell Naranjo Other [facility] Other Procedures Date Procedure Procedure Detail Performing [...] microalbumin profile DTaP,Tdap,Td Vaccine (3 - Tdap) [facility] Start: 11-13-2022 Covid-19 Vaccine ( season) Covid-19 Vaccine ( season) [facility] Start: 03-15-2022 Advance Directive Discussion Advance Directive Discussion [facility] Start: 03-15-2022 Depression Assessment Depression Ass essment [facility] Start: 01-08-2022 End: 03-10-2022 Bacteria identified in Urine by Culture URINE CULTURE Microbiology Routine Left hydrocele Chronic epididymitis Weak urinary stream BPH without obstruction/lower urinary tract symptoms Epididymitis Expected: 01/08/2022 (Approximate), Expires: 03/10/2022 [facility] Work Phone: Comment on above: Expected: 01/08/2022 (Approximate), Expires: 03/10/2022 Start: 01-08-2022 End: 03-10-2022 URINALYSIS, REFLEX MICROSCOPIC URINALYSIS, REFLEX MICROSCOPIC Lab Routine Left hydrocele Chronic epididymitis Weak urinary stream BPH without obstruction/lower urinary tract symptoms Epididymitis Expected: 01/08/2022 (Approximate), Expires: 03/10/2022 [facility] Work Phone: Comment on above: Expected: 01/08/2022 (Approximate), Expires: 03/10/2022 Start: 12-10-2021 End: 02-09-2022 Bacteria identified in Urine by Culture URINE CULTURE Microbiology Routine Urinary tract infection without hematuria, site unspecified Expected: 12/10/2021, Expires: 02/09/2022 [facility] Work Phone: Comment on above: Expected: 12/10/2021 , Expires: 02/09/2022 Start: 11-13-2021 Influenza vaccination INFLUENZA (#1) [facility] Start: 11-12-2021 URODYNAMICS URODYNAMICS Pr ocedures Routine 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 Expected: 11/12/2021 (Approximate) [facility] Work Phone: Comment on above: Expected: 11/12/2021 (Approximate) Start: 08-11-2021 COVID-19 VACCINE (5 - Booster for Pfizer series) COVID-19 VACCINE (5 - Booster for Pfizer series) [facility] Start: 03-15-2021 ADVANCE DIRECTIVE DISCUSSION ADVANCE DIRECTIVE DISCUSSION [facility] Start: 03-15-2021 DEPRESSION ASSESSMENT DEPRESSION ASS ESSMENT [facility] Start: 05-26-2012 3 comp foot exam completed DIABETIC FOOT EXAM [facility] Start: 1998 Hepatitis B Vaccine (1 of 3 - Risk 3-dose series) Hepatitis B Vaccine (1 of 3 - Risk 3-dose series) [facility] Start: 1998 RSV Vaccine (1 - 1-d ose 60+ series) RSV Vaccine (1 - 1-dose 60+ series) [facility] Start: 1988 SHINGRIX VACCINE (1 of 2) SHINGRIX VACCINE (1 of 2) [facility] Start: 1957 Urine microalbumin profile DTAP,TDAP,TD (1 - Tdap) [facility] Start: 1956 Hepatitis B surface antibody level LDL CHOLESTEROL [facility] Start: 1948 Hepatitis B screening URINE ALBUMIN:CREATININE RATIO [facility] Start: 1948 Hepatitis C antibody , confirmatory test DILATED RETINAL EXAM [facility] Start: 1944 PNEUMOCOCCAL: 65+ (1 - PCV) PNEUMOCOCCAL: 65+ (1 - PCV) [facility] Start: 1943 Hemoglobin A1c/Hemoglobin.total in Blood HBA1C [facility] Bacteria identified in Urine by Culture [facility] End: 02-02-2024 Bacteria identified in Urine by Culture URINE CULTURE Microbiology Routine Recurrent UTI 5 Occurrences starting 02/02/2023 until 02/02/2024 [facility] Work Phone: Comment on above: 5 Occurrences starti ng 02/02/2023 until 02/02/2024 Patient Education [facility] Work Phone: Patient referral [facility] Work Phone: End: 01-14-2024 Urinalysis complete panel - Urine URINALYSIS, WITH MICROSCOPIC Lab Routine Recurrent UTI 5 Occurrences starting 02/02/2023 until 01/14/2024 [facility] Work Phone: Comment on above: 5 Occurrences starti ng 02/02/2023 until 01/14/2024 [facility] Immunizations Immunization Date Immunization Notes Care Provider Jens eid 12-01-2022 influenza, high dose seasonal, preservative-free Campbell Naranjo Other [facility] Other 12-19-2021 influenza virus vaccine, split virus (incl. purified surface antigen) Campbell Naranjo Other [facility] Other 12-10-2020 influenza virus vaccine, split virus (incl. purified surface antigen) Campbell Naranjo Other [facility] Other 01-09-2020 influenza virus vaccine, split virus (incl. purified surface antigen) Campbell Naranjo Other [facility] Other 01-14-2018 influenza virus vaccine, split virus (incl. purified surface antigen) Campbell Naranjo Other [facility] Other 12-30-2016 influenza virus vaccine, split virus (incl. purified surface antigen) Campbell Naranjo Other [facility] Other 03-16-2016 influenza virus vaccine, split virus (incl. purified surface antigen) Campbell Naranjo Other [facility] Other 05-01-2015 pneumococcal conjuga te vaccine, 13 valent Campbell Naranjo Other [facility] Other 05-01-2015 pneumococcal Conjuga te, unspecified formulation; Translations: [Need for prophylactic vaccination against Streptococcus pneumoniae (pneumococcus)] Campbell Naranjo Other [facility] Other 12-28-2012 tetanus and diphther ia toxoids, adsorbed, preservative free, for adult use (5 Lf of tetanus toxoid and 2 Lf of diphtheria toxoid) Campbell Naranjo Other [facility] Other 01-28-2012 diphtheria, tetanus toxoids and acellular pertussis vaccine, unspecified formulation Campbell Naranjo Other [facility] Other 01-20-2012 pneumococcal polysaccharide vaccine, 23 valent Campbell Naranjo Other [facility] Other 05-18-2011 pneumococcal polysaccharide vaccine, 23 valent Campbell Naranjo Other [facility] Other Payers Date Payer Category Payer Self-pay 2016 Unknown KRISTIN SALINAS SUPPLEMENT [id number] 2016-Present [phone] [address] [place] [address] Indemnity [id number] 2003 Medicare MEDICARE MEDICAR E A AND B [id number] 2003-Present [phone] [address] [address] [place] [address] Medicare [id number] 1959 Medicare [id number] 1959 Medicare [id number] 1938 Unknown [id number] 3 1940 Unknown [id number] 3 1938 Unknown [id number] [id number] 3 1938 Unknown [id number] [id number] 3 1938 Unknown [id number] [id number] 3 1938 Unknown [id number] [id number] 3 1938 Unknown [id number] [id number] 3 1938 Unknown [id number] [id number] 3 Medicare Medicare Outpatient [id number] 7A [id number] Unknown [facility] Insur [id number] Unknown [id number] 1 Social History Date Type Detail Facility Start: 10-24-2009 End: 12-16-2021 Tobacco smoking status NHIS Ex-smoker [facility] End: 03-15-1971 History of tobacco use Current smoker [facility] End: 01-01-1972 History of tobacco use Cigarette Smoker [facility] Start: 10-24-2009 End: 07-28-2022 Cigarettes smoked current (pack per day) - Reported 1.5 [facility] Start: 11-07-2021 End: 12-16-2021 Alcohol intake Current drinker of alcohol (finding) [facility] Start: 1940 Sex Assigned At Not on file [facility] Start: 10-28-2021 End: 01-08-2022 Exposure to SARS-CoV-2 (event) Not sure [facility] Start: 12-11-2021 End: 12-17-2021 Tobacco smoking status NHIS Never smoked tobacco (finding) [facility] Start: 1940 Sex Assigned At Male F [facility] Start: 12-16-2021 Tobacco use and exposure Smokeless tobacco non-user [facility] Start: 12-16-2021 End: 07-28-2022 Sex Assigned At [facility] Other National Score (1-10 0), lower number is lower risk 61 [facility] Medical Equipment Procedure Code Equipment Code Equipment [...] to restart Amlodipine. Continue PAUL for now. [facility] Other 12-12-2023 Evaluation note* Encounter Date Diagnosis [...] and inserts to prevent callus formation.Fall precautions. [facility] Other 12-08-2023 Evaluation note* Encounter Date Diagnosis [...] ulcers. Recommend routine foot care w/ Podiatry [facility] Other 11-21-2023 NoteHNO ID: [id number] Author: Leticia Milian APRN.ARC WELDER APPRENTICE Service: ? Author Type: Nurse Practitioner Type: Progress Notes Filed: 02/02/2023 2:13 PM Note Text: Norberto Washington [address] [place] [id number] HISTORY OF PRESENT ILLNESS: Seen 07/28/22 for [...] see lab Duration: BPH w obs/luts, UTI [facility] SYMPTOMS SCORE. 1. INCOMPLETE EMPTYING [...] only if s (more content not included)... [facility]11-21-2023 Miscellaneous Notes* Addendum Note - Leticia Milian APRN.CNP - 02/02/2023 2:16 PM ESTAddended by: LETICIA MILIAN on: 02/02/2023 02:16 PM Modules accepted: Orders documented in [facility] History of Present illness Narrative* Leticia Milian APRN.CNP - 02/02/2023 1:40 PM EST Norberto Washington [address] [facility] [address] HISTORY OF PRESENT ILLNESS: Seen 07/28/22 for [...] see lab Duration: BPH w obs/luts, UTI [facility] SYMPTOMS SCORE. 1. INCOMPLETE EMPTYING [...] Making Level: 4 - Moderate Leticia Milian APRN.ARC WELDER APPRENTICE documented in this encounterA[facility]07-[facility]-2023 Evaluation note* Encounter Date Diagnosis Assessment Notes [...] w/ acute infection Requires no additional treatment [facility] Other 07-06-2023 Evaluation note* Encounter Date Diagnosis [...] exercise for 30 minutes, 3-5 times weekly. [facility] Other 05-16-2023 NoteHNO ID: [id number] Author: Leticia Milian APRN.ARC WELDER APPRENTICE Service: ? Author Type: Nurse Practitioner Type: Progress Notes Filed: 07/30/2022 4:34 PM Note Text: [facility] [address] [facility] [address] HISTORY OF PRESENT ILLNESS: Seen 01/20/22 for [...] 07/20/22=neg UA 07/20/22=leuk esterase 250, wbc 11-25 [facility] SYMPTOMS SCORE. 1. INCOMPLETE EMPTYING [...] obs/luts, AUA, PVR Med (more content not included)...[facility]04-06-2023 Evaluation note* Encounter Date Diagnosis Assessment Notes [...] w/ antibiotics and treatment of urinary retention [facility] Other 03-21-2023 NotePROCEDURE: XR FOOT LT MIN [...] Electronically authenticated by: SAMY TORRES Date: 2022-06-02 15:48[facility]03-21-2023 NotePROCEDURE: XR FOOT LT MIN 3 VIEWS, [...] Electronically authenticated by: SAMY TORRES Date: 2022-06-02 15:48[facility]01-25-2023 Evaluation note* Encounter Date Diagnosis Assessment Notes [...] lesion was treated w/ cryotherapy w/o complications [facility] Other 01-06-2023 Evaluation note* Encounter Date Diagnosis [...] Mar, Hesitancy of micturition (ICD-10 - R39.11) [facility] Other 10-27-2022 History of Present illness Narrative* Zuleika Hackett - 01/08/2022 8:20 AM EDT Norberto Washington [address] [id number] Mr. Washington presents with chief complaints of: Enlarged L testicle. ED 11/07/21: PVR 179 cc, refused a catheter, scheduled to undergo a cystoscopy in [place] but was cancelled due to his urologist [...] epididymitis Hydroceles: None Spermatoceles: None Varicoceles: None [facility] SYMPTOMS SCORE. Date 01/08/2022 1. [...] complete. Leonard Dugan M.D. documented in this encounterA[facility]10-[facility]-2022 Hospital Discharge instructions Additional Instructions Continue taking Flomax as prescribed Avoid drinking any fluids several hours before bed Call your urologist tomorrow for a follow-up appointment Return if you are unable to urinate, develop blood in your urine, abdominal pain, feversLakehealth [facility]point [facility] Center Work Phone: [phone] 154-117210-04-2022 History of Present illness Narrative* Leonard Dugan MD - 12/16/2021 2:51 PM EDT Norberto Washington [address] [place] [id number] HISTORY OF PRESENT ILLNESS: ED 11/07/21: PVR 179 cc, refused a catheter, scheduled to undergo a cystoscopy in [place] but was cancelled due to his urologist [...] Otherwise, intermittent catheterization. Agreed indwelling catheter 18 thai. Flomax will not work, no prostate tissue [...] Moderate Leonard Dugan MD documented in this encounterA[facility] Hospital10-03-2022 Miscellaneous Notes* Telephone Encounter - Valente Bell LPN - 12/15/2021 3:58 PM EDT Called and spoke to patient regarding message below. Patient states understanding to information provided. No further action required at this time. * Telephone Encounter - Leticia Milian APRN.CNP - 12/15/2021 10:13 AM EDT Please call and confirm that pt received Serviceful message to start new script sent for antibiotic. Thanks Leticia MONDRAGON documented in this encounterA[facility]man Hospital09-29-2022 Miscellaneous Notes* Telephone Encounter - Valente Bell [...] be draining normally now. documented in this encounterA[facility] Hospital09-28-2022 Nurse Note* Stephanie Kaur RN - 12/10/2021 [...] hyperplasia with urinary retention documented in this encounterA[facility]09-27-2022 History of Present illness Narrative* Leonard Dugan MD - 12/09/2021 5:05 PM EDT [facility] PHYSICIAN INTERPRETATION: [...] contractility Leonard Dugan MD documented in this encounterAultman Hospital09-27-2022 Nurse Note* Stephanie Kaur RN - 12/09/2021 3:57 PM EDT [facility] URODYNAMICS LAB [...] of incomplete bladder emptying documented in this encounterAultman Hospital09-26-2022 Miscellaneous Notes* Telephone Encounter - Stephanie Kaur RN - 12/08/2021 4:11 PM EDT LM for patient to reschedule catheter change for tomorrow. Last changed 11/26/21 in ED. Will be due for change on 12/23/21. Stephanie Kaur R.N. documented in this encounterAultman Hospital09-12-2022 Miscellaneous Notes* Telephone Encounter - Sonia Oliva [...] has been busy with his spouse at [facility] having to care for her needs and hadn't called earlier when it first started on Wednesday. He was hoping it would clear up but it has not, urine is between [place] tint & Brown and he does see small clots. Patient does have pain at the end of his Penis slight swelling noted (he has been applying Neosporin) Denies difficulty with urine draining into [place] bag, he does not have back pain Please advise documented in this encounterAultman Hospital08-31-2022 Nurse Note* Stephanie Kaur RN - 11/12/2021 [...] Education Session: None Instruction Provided To: Patient Color Printer Operator Present: not applicable Discipline: Nursing Learning Topic: [...] supervision. Stephanie Kaur RN documented in this encounterAultman Hospital08-31-2022 Procedure note* Leonard Dugan MD - 11/12/2021 11:00 AM EDTProcedure(s): CYSTOSCOPY Pre-Procedure Diagnose(s): BPH with obstruction/lower urinary tract symptoms Post-Procedure Diagnose(s): BPH with obstruction/lower urinary tract symptoms PROCEDURE: CYSTOSCOPY INDICATIONS: ED 11/07/21: PVR 179 cc, refused a catheter, scheduled to undergo a cystoscopy in [place] but was cancelled due to his urologist [...] Otherwise, intermittent catheterization. Agreed indwelling catheter 18 thai. By signing my name below, I, Zuleika [...] complete. Leonard Dugan M.D. documented in this encounterAultman Hospital08-29-2022 History of Present illness Narrative* Leonard Dugan MD - 11/10/2021 12:11 PM EDT Cysto with uroflow 11-12-21 ED 11/07/21: PVR 179 cc, refused a catheter, scheduled to undergo a cystoscopy in [place] but was cancelled due to his urologist was sick Pt underwent TURP x2 within a week AUA= 3-5 wach ROSAMARIA 11/10/21 - 10 gm, rubbery, no nodules US 11/07/21:= mildly complex renal cysts UA and culture 11-07-21= -ve May need UDS based on cysto [facility]* Diagnosis BPH with obstruction/lower urinary tract symptoms- Primary Hypertrophy of prostate with urinary obstruction and other lower urinary tract symptoms (LUTS) Benign prostatic hyperplasia with urinary retention documented in this encounter [facility]* Diagnosis Urinary frequency- Primary Urinary urgency Urgency of urination Urinary straining Straining on urination Feeling of incomplete bladder emptying Incomplete bladder emptying documented in this encounter [facility]* Diagnosis Urinary tract infection without hematuria, site unspecified- Primary Feeling of incomplete bladder emptying Incomplete bladder emptying Benign prostatic hyperplasia with urinary retention documented in this encounter [facility] noteNo assessment information availableLakehealth [facility] Work Phone: Evaluation note* Diagnosis Retention of urine- Primary Retention of urine, unspecified Flaccid bladder Neurogenic bladder, NOS documented in this encounter [facility]* Diagnosis Chronic epididymitis- Primary Left hydrocele Hydrocele, unspecified Weak urinary stream Slowing of urinary stream BPH without obstruction/lower urinary tract symptoms Hypertrophy of prostate without urinary obstruction and other lower urinary tract symptoms (LUTS) Epididymitis Orchitis and epididymitis, unspecified documented [facility] noteNo InformationNortEdge[facility] Other Evaluation note* Diagnosis BPH with obstruction/lower urinary tract symptoms- Primary Hypertrophy of prostate with urinary obstruction and other lower urinary tract symptoms (LUTS) Recurrent UTI Urinary tract infection, site not specified Weak urinary stream Slowing of urinary stream documented in this encounter [facility] Narrative - Reported* Type Description Date [...] cystoscopy 09.20.2019 Hospitalization History see surgical history [facility] Other Reason for referral (narrative)* Outpatient Procedure (Routine) - Pending Review Specialty Diagnoses / Procedures Referred By Marce dillon Referred To Contact [facility] Diagnoses 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 Procedures URODYNAMICS MAGGY POST-VOIDING RESIDUAL URINE&/BLADDER CAP Leonard Dugan MD [address] [place] [address] [address] [place] [address] Referral ID Status Reason Start Date Expiration Date Visits Requested Visits Authorized [id number] Pending Review Auto-Generat ed Referral 11/12/2021 11/12/2022 1 1 [facility] Summary Purpose Family History No Family History [...] toe of right foot (M20.41) Referral Organization [facility] tram Referring Provider First Name Campbell Referring Provider Last Name Quentin Referring Provider Specialty Internal Me dicine Referred Organization [facility] Referred Provider Jhon Tejada Referred Address [address], [place],[address] Referred Provider Specialty Podiatry - S urgical [...] and content) DATE CREATED AUTHOR 11/04/2021 [facility] DATE CREATED AUTHOR AUTHOR'S ORGANIZ ATION 12/13/2021 [facility] DATE CREATED AUTHOR AUTHOR'S ORGANIZ ATION 06/25/2022 [facility] DATE CREATED AUTHOR AUTHOR'S ORGANRICA ATION 01/14/2023 [facility] DATE CREATED AUTHOR AUTHOR'S ORGANIZ ATION 02/04/2023 [facility] Source Comments (unrecognize d section and content) In the event this informatio n is protected by the Federal Confidentiality of Alcohol and Drug Abuse Patient Records regulations: The Federal rules restrict any use of the information to criminally investigate or prosecute any alcohol or drug abuse patient.[facility] HospitalIn the event this information is protected by the Federal Confidentiality of Alcohol and Drug Abuse Patient Records regulations: The Federal rules restrict any use of the information to criminally investigate or prosecute any alcohol or drug abuse patient.[facility] HospitalIn the event this information is protected by the Federal Confidentiality of Alcohol and Drug Abuse Patient Records regulations: The Federal rules restrict any use of the information to criminally investigate or prosecute any alcohol or drug abuse patient.[facility] HospitalIn the event this information is protected by the Federal Confidentiality of Alcohol and Drug Abuse Patient Records regulations: The Federal rules restrict any use of the information to criminally investigate or prosecute any alcohol or drug abuse patient.[facility] HospitalIn the event this information is protected by the Federal Confidentiality of Alcohol and Drug Abuse Patient Records regulations: The Federal rules restrict any use of the information to criminally investigate or prosecute any alcohol or drug abuse patient.[facility] HospitalIn the event this information is protected by the Federal Confidentiality of Alcohol and Drug Abuse Patient Records regulations: The Federal rules restrict any use of the information to criminally investigate or prosecute any alcohol or drug abuse patient.[facility] HospitalIn the event this information is protected by the Federal Confidentiality of Alcohol and Drug Abuse Patient Records regulations: The Federal rules restrict any use of the information to criminally investigate or prosecute any alcohol or drug abuse patient.[facility] HospitalIn the event this information is protected by the Federal Confidentiality of Alcohol and Drug Abuse Patient Records regulations: The Federal rules restrict any use of the information to criminally investigate or prosecute any alcohol or drug abuse patient.[facility] HospitalIn the event this information is protected by the Federal Confidentiality of Alcohol and Drug Abuse Patient Records regulations: The Federal rules restrict any use of the information to criminally investigate or prosecute any alcohol or drug abuse patient.[facility] HospitalIn the event this information is protected by the Federal Confidentiality of Alcohol and Drug Abuse Patient Records regulations: The Federal rules restrict any use of the information to criminally investigate or prosecute any alcohol or drug abuse patient.[facility] HospitalIn the event this information is protected by the Federal Confidentiality of Alcohol and Drug Abuse Patient Records regulations: The Federal rules restrict any use of the information to criminally investigate or prosecute any alcohol or drug abuse patient.[facility] HospitalIn the event this information is protected by the Federal Confidentiality of Alcohol and Drug Abuse Patient Records regulations: The Federal rules restrict any use of the information to criminally investigate or prosecute any alcohol or drug abuse patient.[facility] Care Teams (unrecognized sec tion and content) Team Status: Active Member Role Status Dates Campbell Naranjo , Primary Care Provider Active Team Status: Inactive Member Role Status Dates Campbell Naranjo , Primary Care Provider Active Low Carter DO Emergency Provider 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 Relationship Specialty Start Date End Date Ran Lees Jr. PCP - General 10/10/09 Household Cook Relationship Specialty Start Date End Date Ran Lees Jr. PCP - General 10/10/09 Household Cook Relationship Specialty Start Date End Date Ran Lees Jr. PCP - General 10/10/09 Household Cook Relationship Specialty Start Date End Date Campbell Naranjo, DO [address] [email or web address] [place] [address] PCP - General Internal Medicine 11/26/21 Household Cook Relationship Specialty Start Date End Date Campbell Naranjo, DO [address] [place] [address] PCP - General Internal Medicine 11/26/21 Household Cook Relationship Specialty Start Date End Date aCmpbell Naranjo, DO [address] [place] [address] PCP - General Internal Medicine 11/26/21 Household Cook Relationship Specialty Start Date End Date Campbell Naranjo [place], DO [address] [place] [address] PCP - General Internal Medicine 11/26/21 Team Status: Inactive Member Role Status Dates Campbell Naranjo DO Primary Care Provider Active Davis Cervantes MD Emergency Provider 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 Relationship Specialty Start Date End Date Campbell Naranjo, DO [address] [place] [facility] [address] PCP - General Internal Medicine 11/26/21 Team Status: Inactive Member Role Status Dates Campbell Naranjo , Primary Care Provider Active Sam Simons , Emergency Provider Active Team Status: Inactive Member Role Status Dates Campbell Quentin , Primary Care Provider Active Sam Simons , Attending Provider 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 Relationship Specialty Start Date End Date Campbell Naranjo, DO [address] [place] [facility] [address] PCP - General Internal Medicine 11/26/21 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 [facility] [employer] [facility]. provides no warranty or guarantee of the accuracy or completeness of information in this document.
== END 2023-04-09 11:09 | disposition home or self-care (01) ==
LOC: WC 11:08
PROVIDERS: PCP Internal Medicine; Visit Provider Podiatrist Foot & Ankle Surgery
DX: E11.621 Type 2 diabetes mellitus with foot ulcer (principal); L97.512 Non-pressure chronic ulcer of other part of right foot with fat layer exposed; L97.515 Non-pressure chronic ulcer of other part of right foot with muscle involvement without evidence of necrosis
CPT/HCPCS: 11042

== ENCOUNTER 2023-04-12 06:15 | Emergency (ER) | payer MEDICARE, SELFPAY ==
[2023-04-12 06:19] VITALS: BP 161/78; PULSE 77; RESP 16; TEMP 36.7; O2SAT 99
--- OUTSIDE RECORDS SUMMARY | 2023-04-12 06:24 | XMS_ITS | CCD ---
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 Primary Care Provider Unava ilable RAN LEES JR Primary Care Unavailable KEELY GUTIERREZ Attending Unavailable CAMPBELL NARANJO Primary Care Unavailable Campbell Naranjo DO Primary Care Provider DO Campbell Naranjo Primary Care Provider [phone] MD Davis Cervantes Emergency Provider DO Sam Simons Emergency Provider DO Sam [...] DR SAMY Nieves Consulting Unavailable QUENTIN, DR SHERMNA Admitting Unavailable BALL, DR SHERMAN Attending Unavailable BALL, DR SHERMAN Consulting Unavailable QUENTIN, DR SHERMAN Primary Care Unavailable QUENTIN, DR SHERMAN Admitting Unavailable BALL, DR SHERMAN Attending Unavailable BALL, DR SHERMAN Consulting Unavailable BALL, DR SHERMAN Primary Care Unavailable BaptisteCornell Unavailable DO Campbell Naranjo Primary Care Provider DO Low Carter Emergency Provider [phone] Campbell Naranjo Primary Care Unavailable Low Carter [...] [CIPROFLOXACIN] Drug Allergy 08-01-19 10 GI Upset, [facility] (20 sources) Sulfonamides (Antibiotic); Translations: [SULFA (SULFONAMIDE ANTIBIOTICS)] Propensity to adverse reactions 08-01-19 10 Rash, [facility] (1 source) Ciprofloxacin Drug Allergy [facility] (1 source) Sulfonamides (Antibiotic) Drug allergy (disorder) [facility] (1 source) Allergies Reconciled Propensity to adverse reactions Unknown [employer] Other (1 source) patient allergy list reviewed by nurse or physicia Propensity to adverse reactions 05-20-19 18 Comment:Done [employer] Other (1 source) Ciprofloxacin Drug Allergy 12-12-19 [facility] (1 source) Sulfonamides (Antibiotic) Drug allergy (disorder) 12-12-19 [facility] Medications Current Medications Medication Drug Class(es) [...] twice daily. Take 1 capsule by mo [facility] three times daily for 3 days. Start [...] 12:00am Start: 12-16-2021 take 1 capsule by [facility] once daily, then take 1 capsule by mouth once daily tamsulosin (FLOMAX) 0.4 mg Take 1 capsule by mouth once daily. Take one cap. daily 30 capsule 5 12/16/2021 Active Comment on above: Take 1 capsule by mo [facility] once daily. Take one cap. 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 02-02-2023 [facility] Office Visit (UROLLN ) NORBERTO WASHINGTON ([id number]) 1940 M Date Time Provider Department 02/02/23 1:30 PM LETICIA MILIAN During your visit today, we recorded the following information about you: Pulse Blood pressure Weight 65/minute 146/70 102.1 kg Leticia Milian, MID LEVEL JAVA DEVELOPER.NETWORK SECURITY OFFICER 02/02/2023 2:13 PM Signed Norberto Washington [address] [place] [id number] HISTORY OF PRESENT ILLNESS: Seen 07/28/22 for [...] see lab Duration: BPH w obs/luts, UTI [facility] SYMPTOMS SCORE. 1. INCOMPLETE EMPTYING [...] Stream (imp (more content not included)... Normal [facility] Bacteria Ur Culton 3 Bacteria identified Cx Nom (U) CULTURE, URINE: No growth (<1,000 CFU/ml) Normal [facility] Comment on above: Performed By: #### 6 30-4 #### [facility] CLIA [id number] [address] [place] [address] [place] CNOVon 07-28-2022 [facility] Office Visit (UROLLN ) NORBERTO WASHINGTON ([id number]) 1940 M Date Time Provider Department 07/28/22 1:30 PM LETICIA MILIAN During your visit today, we recorded the following information about you: Pulse Blood pressure Weight 68/minute 142/55 100.7 kg Leticia Milian APRN.NETWORK SECURITY OFFICER 07/30/2022 4:34 PM Addendum Norberto Washington [address] [facility] [address] HISTORY OF PRESENT ILLNESS: Seen 01/20/22 for [...] 07/20/22=neg UA 07/20/22=leuk esterase 250, wbc 11-25 [facility] SYMPTOMS SCORE. 1. INCOMPLETE EMPTYING [...] -DM UTI (more content not included)... Normal [facility] Bacteria Ur Culton 3 Bacteria identified Cx Nom (U) CULTURE, URINE: No growth (<1,000 CFU/ml) Normal [facility] Comment on above: Performed By: #### 6 30-4 #### [facility] CLIA [id number] [address] [place] [address] [place] Urinalysis complete panel (U )on 07-20-2022 Bilirubin Ql (U) Negative Normal Negative [facility] Comment on above: Order Comment: Speci men Type: URINE SPECIMEN Ordering Facility: [facility] Address: [address] [place], [place] [address] Performed By: #### 2 4356-8 #### [facility] CLIA [id number] [facility] [place] [address] [place] Clarity (Unsp spec) Clear Normal Clear [facility] Comment on above: Order Comment: Speci men Type: URINE SPECIMEN Ordering Facility: [facility] Address: [address] Performed By: #### 2 4356-8 #### [facility] CLIA [id number] [address] [place] [address] [place] Color (U) Yellow Normal Yellow [facility] Comment on above: Order Comment: Speci men Type: URINE SPECIMEN Ordering Facility: [facility] Address: [address] Performed By: #### 2 4356-8 #### [facility] CLIA [id number] [address] [place] [address] [place] Epithelial cells LM.HPF (Urine sed) [#/Area] Few Normal [facility] Comment on above: Order Comment: Speci men Type: URINE SPECIMEN Ordering Facility: [facility] Address: [address] [place], [place] [id number] Performed By: #### 2 4356-8 #### [facility] CLIA [id number] [address] [place] [address] [place] Glucose Test strip (U) [Mass/Vol] Negative Normal Trace, Negative [facility] Comment on above: Order Comment: Speci men Type: URINE SPECIMEN Ordering Facility: [facility] Address: [address] [place], [place] [id number] Performed By: #### 2 4356-8 #### [facility] CLIA [id number] [address] [place] [address] [place] Hemoglobin Ql (U) Negative Normal Negative, Trace [facility] Comment on above: Order Comment: Speci men Type: URINE SPECIMEN Ordering Facility: [facility] Address: [address] Performed By: #### 2 4356-8 #### [facility] CLIA [id number] [address] [place] [address] [place] Ketones Ql (U) Negative Normal Trace, Negative [facility] Comment on above: Order Comment: Speci men Type: URINE SPECIMEN Ordering Facility: [facility] Address: [address] [place] [address] Performed By: #### 2 4356-8 #### [facility] CLIA [id number] [address] [place] [address] [place] Leukocyte esterase Test strip Ql (U) 250 Ayaz/uL Abnormal Negative, 25 Ayaz/uL [facility] Comment on above: Order Comment: Speci men Type: URINE SPECIMEN Ordering Facility: [facility] Address: [address] [place] [address] Performed By: #### 2 4356-8 #### [facility] CLIA [id number] [address] [place] [address] [place] Nitrite Ql (U) Negative Normal Negative [facility] Comment on above: Order Comment: Speci men Type: URINE SPECIMEN Ordering Facility: [facility] Address: [address] [place], [place] [id number] Performed By: #### 2 4356-8 #### [facility] CLIA [id number] [address] [place] [address] [place] pH (U) 5.5 [pH] Normal 5.0-8.0 [facility] Comment on above: Order Comment: Speci men Type: URINE SPECIMEN Ordering Facility: [facility] Address: [address] [place], [place] [id number] Performed By: #### 2 4356-8 #### [facility] CLIA [id number] [address] [place] [address] [place] Protein (U) [Mass/Vol] Negative Normal Trace , Negative [facility] Comment on above: Order Comment: Speci men Type: URINE SPECIMEN Ordering Facility: [facility] Address: [address] [place], [place] [id number] Performed By: #### 2 4356-8 #### [facility] CLIA [id number] [facility] [place] [address] [place] RBC LM.HPF (Urine sed) [#/Area] 0-3 /HPF Normal 0-3 /HPF [facility] Comment on above: Order Comment: Speci men Type: URINE SPECIMEN Ordering Facility: [facility] Address: [address] [place], [place] [id number] Performed By: #### 2 4356-8 #### [facility] CLIA [id number] [address] [place] [address] [place] Specific gravity (U) [Rel density] 1.016 Normal 1.005-1.030 [facility] Comment on above: Order Comment: Speci men Type: URINE SPECIMEN Ordering Facility: [facility] Address: [address] [place], [place] [id number] Performed By: #### 2 4356-8 #### [facility] CLIA [id number] [address] [place] [address] [place] Urobilinogen Ql (U) Negative Normal Negative [facility] Comment on above: Order Comment: Speci men Type: URINE SPECIMEN Ordering Facility: [facility] Address: [address] [place], [place] [id number] Performed By: #### 2 4356-8 #### [facility] CLIA [id number] [address] [place] [address] [place] WBC LM.HPF (Urine sed) [#/Area] 11-25 /HPF Abnormal 0-5 /HPF [facility] Comment on above: Order Comment: Speci men Type: URINE SPECIMEN Ordering Facility: [facility] Address: [address] [place], [place] [id number] Performed By: #### 2 4356-8 #### [facility] CLIA [id number] [address] [place] [address] [place] GLYCOHEMOGLOBIN A1Con 2022 ADA RECOMMENDATION SEE BELOW Normal [facility] Comment on above: Result Comment: ADA RECOMMENDED LIMIT 4.0 - 6.0 ADA THERAPEUTIC TARGET < 7.0 ACTION SUGGESTED > 7.0 Performed By: #### A 1C #### [facility] [address] [address] [address] Juan Pablo Kaminski Glucose [Mass/Vol] 128 mg/dL Normal [facility] Comment on above: Performed By: #### A 1C #### [facility] [address] [address] [address] Juan Pablo Kaminski HbA1c (Bld) [Mass fraction] 6.1 % Normal 4.5-6.2 [facility] Comment on above: Performed By: #### A 1C #### [facility] [address] [place] [address] Dr. Juan Pablo Kaminski A1C with Estimated Average G luon 03-20-2022 A1C with Estimated Average Glu [address] [facility] [employer] Other A1C with Estimated Average Glu [employer] Other HbA1c (Bld) [Mass fraction] 6.1 % Normal 4.5-6.2 [employer] Other Comment on above: Performed By: #### A 1C #### [facility] [address] [place] [address] Dr. Juan Pablo Kaminski GLYCOHEMOGLOBIN A1Con 2022 ADA RECOMMENDATION SEE BELOW Normal [facility] Comment on above: Result Comment: ADA RECOMMENDED LIMIT 4.0 - 6.0 ADA THERAPEUTIC TARGET < 7.0 ACTION SUGGESTED > 7.0 Performed By: #### A 1C #### [facility] [address] [place] [address] Dr. Juan Pablo Kaminski Glucose [Mass/Vol] 128 mg/dL Normal [facility] Comment on above: Performed By: #### A 1C #### [facility] [address] [place] [address] Dr. Juan Pablo Kaminski US SCROTUM W [...] by: LEIDY PEREIRA Date: 2021-12-25 18:32 Normal [facility] Urine culture routineOrdered By: Sam Simons on 12-19-2021 Bacteria identified Cx Nom (U) Pseudomonas aeruginosa [facility] Automated erythrocytes count in urine sediment (number/area)Ordered By: Sam Simons on 12-17-2021 RBC Auto (Urine sed) [#/Area] 1-2 [HPF] 0-4 [facility] Automated leukocytes count i n urine sediment (number/area)Ordered By: Sam Simons on 12-17-2021 WBC Auto (Urine sed) [#/Area] 20-49 [HPF] 0-4 [facility] Bilirubin Test strip Ql (U)O rdered By: Sam Simons on 12-17-2021 Bilirubin Ql (U) Negative Negative [facility] Color Auto (U)Ordered By: Micheal Simons on 12-17-2021 Color (U) Yellow Yellow [facility] Ketones Auto test strip (U) [Mass/Vol]Ordered By: Sam Simons on 12-17-2021 Ketones (U) [Mass/Vol] Negative Negative [facility] - UrinalysisOrder ed By: Sam Simons on 12-17-2021 Hyaline casts LM Ql (Urine sed) 0-8 [LPF] 0-8 [facility] Nitrite Test strip Ql (U)Ord ered By: Sam Simons on 12-17-2021 Nitrite Ql (U) Negative Negative [facility] Protein Auto test strip (U) [Mass/Vol]Ordered By: Sam Simons on 12-17-2021 Protein (U) [Mass/Vol] Negative Negative [facility] Specific gravity Auto test s trip (U) [Rel density]Ordered By: Sam Simons on 12-17-2021 Specific gravity (U) [Rel density] 1.016 1.001-1.030 [facility] Squamous epithelial cells de tection in urine sediment by light microscopyOrdered By: Sam Simons on 12-17-2021 Epithelial cells.squamous LM Ql (Urine sed) 0-1 [HPF] 0-2 [facility] Urine bacteria detection by automated methodOrdered By: Sam Simons on 12-17-2021 Bacteria Auto Ql (U) None seen None Seen [facility] Urine clarity by refractomet ry automatedOrdered By: Sam Simons on 12-17-2021 Clarity Refractometry automated (U) Clear Clear [facility] Urine glucose measurement by automated test strip (mass/volume)Ordered By: Sam Simons on 12-17-2021 Glucose Auto test strip (U) [Mass/Vol] Normal mg/dL Normal [facility] Urine hemoglobin detection b y automated test stripOrdered By: Sam Simons on 12-17-2021 Hemoglobin Auto test strip Ql (U) Negative Negative [facility] Urine leukocyte esterase det ection by automated test stripOrdered By: Sam Simons on 12-17-2021 Leukocyte esterase Auto test strip Ql (U) 4+ Negative [facility] Urobilinogen Auto test strip (U) [Mass/Vol]Ordered By: Sam Simons on 12-17-2021 Urobilinogen (U) [Mass/Vol] Normal mg/dL Normal [facility] pH Auto test strip (U)Ordere d By: Sam Simons on 12-17-2021 pH (U) 6.0 [pH] 5.0-9.0 [facility] Urine culture routineOrdered By: Davis Cervantes on 12-13-2021 Bacteria identified Cx Nom (U) No Growth 2 Days [facility] Automated erythrocytes count in urine sediment (number/area)Ordered By: Davis Cervantes on 12-11-2021 RBC Auto (Urine sed) [#/Area] 20-49 [HPF] 0-4 [facility] Automated leukocytes count i n urine sediment (number/area)Ordered By: Davis Cervantes on 12-11-2021 WBC Auto (Urine sed) [#/Area] 10-19 [HPF] 0-4 [facility] Basophils Auto (Bld) [#/Vol] Ordered By: Davis Cervantes on 12-11-2021 Basophils (Bld) [#/Vol] 0.1 10*3/uL 0.0-0.2 [facility] Basophils/100 WBC Auto (Bld) Ordered By: Davis Cervantes on 12-11-2021 Basophils/100 WBC (Bld) 1.2 % . [facility] Bilirubin Test strip Ql (U)O rdered By: Davis Cervantes on 12-11-2021 Bilirubin Ql (U) Negative Negative [facility] Blood hemoglobin measurement (mass/volume)Ordered By: Davis Cervantes on 12-11-2021 Hemoglobin (Bld) [Mass/Vol] 13.3 g/dL 13.0-17.0 [facility] Blood leukocytes automated c ount (number/volume)Ordered By: Davis Cervantes on 12-11-2021 WBC (Bld) [#/Vol] 8.2 10*3/uL 4.5-11.0 [facility] Color Auto (U)Ordered By: Mary Cervantes on 12-11-2021 Color (U) Yellow Yellow [facility] Creatinine and Glomerular fi ltration rate.predicted panel (S/P/Bld)Ordered By: Davis Cervantes on 12-11-2021 Creatinine [Mass/Vol] 1.16 mg/dL 0.64-1.27 [facility] Eosinophils Auto (Bld) [#/Vo l]Ordered By: Davis Cervantes on 12-11-2021 Eosinophils (Bld) [#/Vol] 0.2 10*3/uL 0.0-0.45 [facility] Eosinophils/100 WBC Auto (Bl d)Ordered By: Davis Cervantes on 12-11-2021 Eosinophils/100 WBC (Bld) 2.9 % . [facility] Erythrocyte distribution wid th Auto (RBC) [Ratio]Ordered By: Davis Cervantes on 12-11-2021 Erythrocyte distribution width (RBC) [Ratio] 11.8 % 12.0-14.8 [facility] Estimated glomerular filtrat ion rate (GFR) non- AmericanOrdered By: Davis Cervantes on 12-11-2021 GFR/1.73 sq M.predicted among non-blacks MDRD (S/P/Bld) [Vol rate/Area] 60 mL/Min [facility] Hematocrit Auto (Bld) [Volum e fraction]Ordered By: Davis Cervantes on 12-11-2021 Hematocrit (Bld) [Volume fraction] 39.6 % 38.8-50.0 [facility] Ketones Auto test strip (U) [Mass/Vol]Ordered By: Davis Cervantes on 12-11-2021 Ketones (U) [Mass/Vol] Negative Negative [facility] Hematology and Cell countsOrdered By: Davis Cervantes on 12-11-2021 Nucleated RBC/100 WBC (Bld) [Ratio] 0.0 % 0-0.5 [facility] - UrinalysisOrder ed By: Davis Cervantes on 12-11-2021 Hyaline casts LM Ql (Urine sed) 0-8 [LPF] 0-8 [facility] Lymphocytes Auto (Bld) [#/Vo l]Ordered By: Davis Cervantes on 12-11-2021 Lymphocytes (Bld) [#/Vol] 1.9 10*3/uL 1.00-4.8 [facility] Lymphocytes/100 WBC Auto (Bl d)Ordered By: Davis Cervantes on 12-11-2021 Lymphocytes/100 WBC (Bld) 23.3 % . [facility] MCH Auto (RBC) [Entitic mass ]Ordered By: Davis Cervantes on 12-11-2021 MCH (RBC) [Entitic mass] 32.0 pg 27.5-35.2 [facility] MCHC Auto (RBC) [Mass/Vol]Or dered By: Davis Cervantes on 12-11-2021 MCHC (RBC) [Mass/Vol] 33.6 g/dL 32.5-35.6 [facility] MCV Auto (RBC) [Entitic vol] Ordered By: Davis Cervantes on 12-11-2021 MCV (RBC) [Entitic vol] 95.1 fL 83.5-101 [facility] Monocytes Auto (Bld) [#/Vol] Ordered By: Davis Cervantes on 12-11-2021 Monocytes (Bld) [#/Vol] 1.1 10*3/uL 0.0-0.8 [facility] Monocytes/100 WBC Auto (Bld) Ordered By: Davis Cervantes on 12-11-2021 Monocytes/100 WBC (Bld) 13.6 % . [facility] Neutrophils Auto (Bld) [#/Vo l]Ordered By: Davis Cervantes on 12-11-2021 Neutrophils (Bld) [#/Vol] 4.8 10*3/uL 1.8-7.7 [facility] Neutrophils/100 WBC Auto (Bl d)Ordered By: Davis Cervantes on 12-11-2021 Neutrophils/100 WBC (Bld) 59.0 % . [facility] Nitrite Test strip Ql (U)Ord ered By: Davis Cervantes on 12-11-2021 Nitrite Ql (U) Negative Negative [facility] No Panel InformationOrdered By: Davis Cervantes on 12-11-2021 Estimated GFR () > 60 mL/Min [facility] Comment on above: GFR estimated refere nce range: According to KDOQI guidelines, <60 ml/min/1.73m2 is sufficient to diagnose a patient with chronic kidney disease. Pharmacy Creatinine Clearance (Chem 57.67 [facility] Platelet mean volume Auto (B ld) [Entitic vol]Ordered By: Davis Cervantes on 12-11-2021 Platelet mean volume (Bld) [Entitic vol] 7.0 fL 6.6-10.1 [facility] Platelets Auto (Bld) [#/Vol] Ordered By: Davis Cervantes on 12-11-2021 Platelets (Bld) [#/Vol] 266 10*3/uL 150-450 [facility] Protein Auto test strip (U) [Mass/Vol]Ordered By: Davis Cervantes on 12-11-2021 Protein (U) [Mass/Vol] Negative Negative Fi [facility] RBC Auto (Bld) [#/Vol]Ordere d By: Davis Cervantes on 12-11-2021 RBC (Bld) [#/Vol] 4.17 10*6/uL 3.90-5.60 [facility] Serum or plasma anion gap de terminationOrdered By: Davis Cervantes on 12-11-2021 Anion gap [Moles/Vol] 12.2 mmol/L 6.0-15.0 [facility] Serum or plasma calcium maggy urement (mass/volume)Ordered By: Davis Cervantes on 12-11-2021 Calcium [Mass/Vol] 9.0 mg/dL 8.2-10.2 [facility] Serum or plasma chloride duran surement (moles/volume)Ordered By: Davis Cervantes on 12-11-2021 Chloride [Moles/Vol] 96 mmol/L 95-114 [facility] Serum or plasma glucose maggy urement (mass/volume)Ordered By: Davis Cervantes on 12-11-2021 Glucose [Mass/Vol] 131 mg/dL 70-100 [facility] Comment on above: ADA recommended refe rence rangeRandom Glucose Reference Range is dependent on time and content of last meal. Glucose of more than 200 mg/dL in a nonstressed, ambulatory subject supports the diagnosis of Diabetes Mellitus. Serum or plasma potassium me asurement (moles/volume)Ordered By: Davis Cervantes on 12-11-2021 Potassium [Moles/Vol] 4.5 mmol/L 3.5-5.1 [facility] Serum or plasma sodium measu rement (moles/volume)Ordered By: Davis Cervantes on 12-11-2021 Sodium [Moles/Vol] 131 mmol/L 136-146 [facility] Serum or plasma total carbon dioxide measurement (moles/volume)Ordered By: Davis Cervantes on 12-11-2021 CO2 [Moles/Vol] 27.3 mmol/L 22.0-30.0 [facility] Serum or plasma urea nitroge n measurement (mass/volume)Ordered By: Davis Cervantes on 12-11-2021 Urea nitrogen [Mass/Vol] 20 mg/dL 9-23 [facility] Specific gravity Auto test s trip (U) [Rel density]Ordered By: Davis Cervantes on 12-11-2021 Specific gravity (U) [Rel density] 1.014 1.001-1.030 [facility] Squamous epithelial cells de tection in urine sediment by light microscopyOrdered By: Davis Cervantes on 12-11-2021 Epithelial cells.squamous LM Ql (Urine sed) 0-1 [HPF] 0-2 [facility] Urine bacteria detection by automated methodOrdered By: Davis Cervantes on 12-11-2021 Bacteria Auto Ql (U) None seen None Seen [facility] Urine clarity by refractomet ry automatedOrdered By: Davis Cervantes on 12-11-2021 Clarity Refractometry automated (U) Clear Clear [facility] Urine glucose measurement by automated test strip (mass/volume)Ordered By: Davis Cervantes on 12-11-2021 Glucose Auto test strip (U) [Mass/Vol] Normal mg/dL Normal [facility] Urine hemoglobin detection b y automated test stripOrdered By: Davis Cervantes on 12-11-2021 Hemoglobin Auto test strip Ql (U) 2+ Negative [facility] Urine leukocyte esterase det ection by automated test stripOrdered By: Davis Cervantes on 12-11-2021 Leukocyte esterase Auto test strip Ql (U) 2+ Negative [facility] Urobilinogen Auto test strip (U) [Mass/Vol]Ordered By: Davis Cervantes on 12-11-2021 Urobilinogen (U) [Mass/Vol] Normal mg/dL Normal [facility] pH Auto test strip (U)Ordere d By: Davis Cervantes on 12-11-2021 pH (U) 5.5 [pH] 5.0-9.0 [facility] ED NOTEon 11-27-2021 ED NOTE HNO ID: [id number] Author: Alyx Vergara RN Service: Nursing Author Type: Registered Nurse Type: ED Notes Filed: 11/26/2021 10:21 PM Note Text: Discharge instructions and follow up appointments reviewed. Pt verbalized understanding and states no concerns or questions at this time. VSS. Spoke with Asha about elevated BP. Stated that it's okay for pt to go and have him f/u with his PCP. Normal [facility] ED NOTE HNO ID: [id number] Author: Alyx Vergara RN Service: Nursing Author Type: Registered Nurse Type: ED Notes Filed: 11/26/2021 10:10 PM Note Text: Replaced hamilton bag with leg bag. Normal [facility] Bacteria Ur Culton 2 Bacteria identified Cx Nom (U) [id number] Abnormal [facility] Comment on above: Order Comment: Speci men Type: URINE SPECIMEN Ordering Facility: [facility] Address: [address] [place] [address] Result Comment: >=10 0,000 CFU/ml Klebsiella oxytoca Performed By: #### 6 30-4, 33818-5 #### [facility] CLIA [id number] 41 [place] [address] [place] Bacterial susceptibility maldonado el (Isol)on 11-26-2021 Ampicillin [Susc] Resistant [facility] Comment on above: Order Comment: Order ing Facility: [facility] Address: [address] [place] [address] Performed By: #### 6 30-4, 34418-5 #### [facility] CLIA [id number] [address] [place] [address] [place] Ampicillin+Sulbactam [Susc] 4 Susceptible Susceptible <=8 , Intermediate >8 , Resistant >16 [facility] Comment on above: Order Comment: Order ing Facility: [facility] Address: [address] [place], [place] [address] Performed By: #### 6 30-4, 11511-4 #### [facility] CLIA [id number] [address] [place] [address] STATES OF [facility] ceFAZolin [Susc] <=4 Susceptible Susceptible 0-16 , Intermediate <0 or >16 , Resistant >16 [facility] Comment on above: Order Comment: Order ing Facility: [facility] Address: [address] [place], [place] [address] Performed By: #### 6 30-4, 63511-9 #### [facility] CLIA [id number] [address] [place] [address] [place] Cefepime [Susc] <=1 Susceptible Susceptible <=2 , Intermediate >2 , Resistant >=16 [facility] Comment on above: Order Comment: Order ing Facility: [facility] Address: [address] [place] [address] Performed By: #### 6 30-4, 23255-6 #### [facility] CLIA [id number] [address] [place] [address] [place] cefTRIAXone [Susc] <=1 Susceptible Susceptib le <=1 , Intermediate >1 , Resistant >=4 [facility] Comment on above: Order Comment: Order ing Facility: [facility] Address: [address] [place], [place] [address] Performed By: #### 6 30-4, 53662-6 #### [facility] CLIA [id number] [address] [place] [address] [place] Ciprofloxacin [Susc] <=0.25 Susceptible Suscept ible <0.5 , Intermediate >=.5 , Resistant >=1 [facility] Comment on above: Order Comment: Order ing Facility: [facility] Address: [address] [place], [place] [address] Performed By: #### 6 30-4, 03261-4 #### [facility] CLIA [id number] [address] [place] Ertapenem ROCIO [Susc] <=0.5 Susceptible Suscept ible <=0.5 , Intermediate >.5 , Resistant >1 [facility] Comment on above: Order Comment: Order ing Facility: [facility] Address: [address] [place] [address] Performed By: #### 6 30-4, 38766-8 #### [facility] CLIA [id number] [address] [place] [address] [place] Gentamicin [Susc] <=1 Susceptible Susceptibl e <=4 , Intermediate >4 , Resistant >8 [facility] Comment on above: Order Comment: Order ing Facility: [facility] Address: [address] [place] [address] Performed By: #### 6 30-4, 74948-0 #### [facility] IA [id number] [address] [place] [address] [place] Meropenem [Susc] <=0.25 Susceptible Susceptible <=1 , Intermediate >1 , Resistant >2 [facility] Comment on above: Order Comment: Order ing Facility: [facility] Address: [address] [place] [address] Performed By: #### 6 30-4, 22110-5 #### [facility] CLIA [id number] [address] [place] [address] [place] Nitrofurantoin [Susc] 32 Susceptible Suscep tible <=32 , Intermediate >32 , Resistant >64 [facility] Comment on above: Order Comment: Order ing Facility: [facility] Address: [address] [place], [place] [address] Performed By: #### 6 30-4, 52796-4 #### [facility] CLIA [id number] [address] [place] [address] [place] Piperacillin+Sulbactam ROCIO [Susc] <=4 Susceptible Susceptible <=16 , Intermediate >16 , Resistant >64 [facility] Comment on above: Order Comment: Order ing Facility: [facility] Address: [address] [place] [address] Performed By: #### 6 30-4, 72796-2 #### [facility] CLIA [id number] [address] [place] [address] Tobramycin [Susc] <=1 Susceptible Susceptibl e <=4 , Intermediate >4 , Resistant >8 [facility] Comment on above: Order Comment: Order ing Facility: [facility] Address: [address] [place] [address] Performed By: #### 6 30-4, 38688-4 #### [facility] CLIA [id number] [address] [place] [address] Trimethoprim+Sulfameth oxazole [Susc] <=20 Susceptible Susceptible <=40 , Resistant >40 [facility] Comment on above: Order Comment: Order ing Facility: [facility] Address: [address] [place] [address] Performed By: #### 6 30-4, 53774-8 #### [facility] CLIA [id number] [address] [place] [address] ED NOTEon 11-26-2021 ED NOTE HNO ID: [id number] Author: Alyx Vergara RN Service: Nursing Author Type: Registered Nurse Type: ED Notes Filed: 11/26/2021 9:20 PM Note Text: Replaced hamilton per Asha BARR. [facility] ED NOTE HNO ID: [id number] Author: Alyx Vergara RN Service: Nursing Author Type: Registered Nurse Type: ED Notes Filed: 11/26/2021 9:01 PM Note Text: Was instructed to bladder scan pt due to pt having no urine in replaced bag. Bladder scanned 261 mL's the first time. Then 214 mL's the second time. Made Asha ESQUIVEL) aware. [facility] ED NOTE HNO ID: [id number] Author: Alyx Vergara, RN Service: Nursing Author Type: Registered Nurse Type: ED Notes Filed: 11/26/2021 9:49 PM Note Text: Flushed 20 mL Hamilton. No leaking noted around tube. Normal [facility] ED PROV NOTEon 11-26-2021 ED PROV NOTE HNO ID: [id number] Author: Asha Clinton PA-C Service: ? Author Type: Physician Hand Candy Cutter Type: ED Provider Notes Filed: 11/26/2021 10:26 [...] culture. Previous and only urine culture in [facility] on 11/07 had no growth. Given dose of Keflex. Prescription for this E scripted to pharmacy. Patient discharged with Hamilton in place, leg bag instructions. Elevated blood pressure noted and improved during stay. No CP, sob, dizziness or any other complaints. Recommend f/u with pcp for recheck. All questions and concerns addre (more content not included)... Normal [facility] Urinalysis complete panel (U )on 11-26-2021 Bacteria LM.HPF (Urine sed) [#/Area] Many Abnormal None Seen [facility] Comment on above: Order Comment: Speci men Type: URINE SPECIMEN Ordering Facility: [facility] Address: [address] [place] [address] Performed By: #### 6 30-4, 39353-9 #### [facility] CLIA [id number] [address] [place] [address] [place] Bilirubin Ql (U) Negative Normal Negative [facility] Comment on above: Order Comment: Speci men Type: URINE SPECIMEN Ordering Facility: [facility] Address: [address] [place] [address] Performed By: #### 6 30-4, 78870-0 #### [facility] CLIA [id number] [address] [place], [place] [address] [place] [address] [place] Clarity (Unsp spec) Cloudy Abnormal Clear [facility] Comment on above: Order Comment: Speci men Type: URINE SPECIMEN Ordering Facility: [facility] Address: [address] [place] [address] Performed By: #### 6 30-4, 22365-8 #### [facility] CLIA [id number] [address] [place] [address] [place] Color (U) Yellow Normal Yellow [facility] Comment on above: Order Comment: Speci men Type: URINE SPECIMEN Ordering Facility: [facility] Address: [address] [place] [address] Performed By: #### 6 30-4, 22499-0 #### [facility] CLIA [id number] [address] [place] [address] [place] Epithelial cells LM.HPF (Urine sed) [#/Area] Few Normal [facility] Comment on above: Order Comment: Speci men Type: URINE SPECIMEN Ordering Facility: [facility] Address: [address] [place] [address] Performed By: #### 6 30-4, 71229-0 #### [facility] CLIA [id number] [address] [place] [address] [place] Glucose Test strip (U) [Mass/Vol] Negative Normal Negative [facility] Comment on above: Order Comment: Speci men Type: URINE SPECIMEN Ordering Facility: [facility] Address: [address] [place] [address] Performed By: #### 6 30-4, 67040-1 #### [facility] CLIA [id number] [address] [place] [address] [place] Hemoglobin Ql (U) 2+ Abnormal Negative [facility] Comment on above: Order Comment: Speci men Type: URINE SPECIMEN Ordering Facility: [facility] Address: [address] [place], [place] [address] Performed By: #### 6 30-4, 70387-4 #### [facility] CLIA [id number] [address] [place] [address] [place] Ketones Ql (U) Negative Normal Negative [facility] Comment on above: Order Comment: Speci men Type: URINE SPECIMEN Ordering Facility: [facility] Address: [address] [place], [place] [address] Performed By: #### 6 30-4, 20529-6 #### [facility] CLIA [id number] [address] [place] [address] [place] Leukocyte esterase Test strip Ql (U) 3+ Abnormal Negative [facility] Comment on above: Order Comment: Speci men Type: URINE SPECIMEN Ordering Facility: [facility] Address: [address] [place] [address] Performed By: #### 6 30-4, 27650-0 #### [facility] CLIA [id number] [address] [place] [address] [place] Nitrite Ql (U) Positive Abnormal Negative [facility] Comment on above: Order Comment: Speci men Type: URINE SPECIMEN Ordering Facility: [facility] Address: [address] [place] [address] Performed By: #### 6 30-4, 15418-2 #### [facility] CLIA [id number] [address] [place] [address] [place] pH (U) 5.5 [pH] Normal 5.0-8.0 [facility] Comment on above: Order Comment: Speci men Type: URINE SPECIMEN Ordering Facility: [facility] Address: [address] [place] [address] Performed By: #### 6 30-4, 11665-3 #### [facility] CLIA [id number] [address] [place] [address] [place] Protein (U) [Mass/Vol] Normal [facility] Comment on above: Order Comment: Speci men Type: URINE SPECIMEN Ordering Facility: [facility] Address: [address] [place] [address] Result Comment: Visi ble blood causes falsely elevated results for analyte Protein. Due to this limitation, Protein will not be reported for patients whose urine contains visible blood. Performed By: #### 6 30-4, 45060-3 #### [facility] CLIA [id number] [address] [place] [address] [place] RBC LM.HPF (Urine sed) [#/Area] 6-10 /HPF Abnormal 0-3 /HPF [facility] Comment on above: Order Comment: Speci men Type: URINE SPECIMEN Ordering Facility: [facility] Address: [address] [place] [address] Performed By: #### 6 30-4, 91435-8 #### [facility] CLIA [id number] [address] [place] [address] [place] Specific gravity (U) [Rel density] 1.009 Normal 1.005-1.030 [facility] Comment on above: Order Comment: Speci men Type: URINE SPECIMEN Ordering Facility: [facility] Address: [address] [place] [address] Performed By: #### 6 30-4, 73590-6 #### [facility] CLIA [id number] [address] [place] [address] [place] Urobilinogen Ql (U) 0.2 EU/dL Normal 0.2-1.0 EU/dL [facility] Comment on above: Order Comment: Speci men Type: URINE SPECIMEN Ordering Facility: [facility] Address: [address] [place] [address] Performed By: #### 6 30-4, 70082-1 #### [facility] CLIA [id number] [address] [place] [address] [place] WBC LM.HPF (Urine sed) [#/Area] 11-25 /HPF Abnormal 0-5 /HPF [facility] Comment on above: Order Comment: Speci men Type: URINE SPECIMEN Ordering Facility: [facility] Address: [address] [place] [address] Performed By: #### 6 30-4, 16903-4 #### [facility] CLIA [id number] [address] [place] [address] [place] Covid-19 PCR (CVDTB)on SARS-CoV-2 (COVID-19) RNA LUANNE+probe Ql (Unsp spec) Not detected Normal NOT DETECTED [facility] Comment on above: Result Comment: This test is not yet approved or cleared by the [place] FDA. When there are no FDA-approved or cleared tests available, and other criteria are met, FDA can make tests available under an emergency access mechanism called an Emergency Use Authorization (EUA). The EUA for this test is supported by the [place] of Health and Human Service's (HHS's) declaration [...] SARS-CoV-2. Performed By: #### C VDTB #### [facility] [address] [place] [address] Dr. Juan Pablo Kaminski Bacteria Ur Culton 2 Bacteria identified Cx Nom (U) No growth (<1,000 CFU/ml) Normal [facility] Comment on above: Order Comment: Speci men Type: URINE SPECIMEN Ordering Facility: [facility] Address: [address] [place] [id number] Performed By: #### 6 30-4 #### [facility] CLIA [id number] [address] [place] [address] [place] [address] [place] Basic metabolic 2000 panelon 11-07-2021 Anion gap [Moles/Vol] 10 mmol/L Normal 11-30 [facility] Comment on above: Order Comment: Speci men Type: URINE SPECIMEN Ordering Facility: [facility] Address: [address] [place] [phone] Performed By: #### 6 30-4, 67899-0 #### [facility] CLIA [id number] [address] [place] [address] [place] Calcium [Mass/Vol] 9.1 mg/dL Normal 8.5-10.2 [facility] Comment on above: Order Comment: Speci men Type: URINE SPECIMEN Ordering Facility: [facility] Address: [address] [place], [place] [address] Performed By: #### 6 30-4, 85890-8 #### [facility] CLIA [id number] [address] [place] [address] [place] Chloride [Moles/Vol] 95 mmol/L Low 97-105 [facility] Comment on above: Order Comment: Speci men Type: URINE SPECIMEN Ordering Facility: [facility] Address: [address] [place] [address] Performed By: #### 6 30-4, 40815-4 #### [facility] CLIA [id number] [address] [place] [address] [place] CO2 [Moles/Vol] 25 mmol/L Normal 22-30 [facility] Comment on above: Order Comment: Speci men Type: URINE SPECIMEN Ordering Facility: [facility] Address: [address] [place], [place] [address] Performed By: #### 6 30-4, 26213-2 #### [facility] CLIA [id number] [address] [place] [address] [place] Creatinine [Mass/Vol] 1.25 mg/dL High 0.73-1.22 [facility] Comment on above: Order Comment: Speci men Type: URINE SPECIMEN Ordering Facility: [facility] Address: [address] [place], [place] [address] Performed By: #### 6 30-4, 42087-3 #### [facility] CLIA [id number] [address] [place] [address] [place] ESTIMATED GLOMERULAR FILTRATION RATE 57 mL/min/1.73m??? Low >=60 [facility] Comment on above: Order Comment: Domonique garcia Type: URINE SPECIMEN Ordering Facility: [facility] Address: [address] [place], [place] [id number] Result Comment: Annalise mated Glomerular Filtration Rate [...] actual GFR. Performed By: #### 6 30-4, 22654-7 #### [facility] CLIA [id number] [address] [place] [address] [place] Glucose [Mass/Vol] 129 mg/dL High 74-99 [facility] Comment on above: Order Comment: Domonique garcia Type: URINE SPECIMEN Ordering Facility: [facility] Address: [address] [place], [place] [address] Result Comment: The [place] Diabetes Association (ADA) provides guidance for cutoff [...] Standards of Medical Care in Diabetes 2016, [place] Diabetes Association. Diabetes Care. 2016.39(Suppl 1). Performed By: #### 6 30-4, 18149-5 #### [facility] CLIA [id number] [address] [place] [address] [place] Potassium [Moles/Vol] 4.6 mmol/L Normal 3.7-5.1 [facility] Comment on above: Order Comment: Speci men Type: URINE SPECIMEN Ordering Facility: [facility] Address: [address] [place], [place] [address] Performed By: #### 6 30-4, 84902-3 #### [facility] CLIA [id number] [address] [place] [address] [place] Sodium [Moles/Vol] 130 mmol/L Low 136-144 [facility] Comment on above: Order Comment: Speci men Type: URINE SPECIMEN Ordering Facility: [facility] Address: [address] [place] [address] Performed By: #### 6 30-4, 34898-7 #### [facility] CLIA [id number] [address] [place] [address] [place] Urea nitrogen [Mass/Vol] 23 mg/dL Normal 9-24 [facility] Comment on above: Order Comment: Speci men Type: URINE SPECIMEN Ordering Facility[facility] Address: [address] [place] [address] Performed By: #### 6 30-4, 35307-6 #### [facility] CLIA [id number] [address] [place] [address] [place] CBC W Auto Differential pane l (Bld)on 11-07-2021 Basophils/100 WBC (Bld) 0.0 % Normal [facility] Comment on above: Order Comment: Speci men Type: URINE SPECIMEN Ordering Facility[facility] Address: [address] [place], [place] [address] Performed By: #### 6 30-4, 85622-5 #### [facility] CLIA [id number] [address] [place] [address] [place] Differential cell count method Nom (Bld) Manual Normal [facility] Comment on above: Order Comment: Speci men Type: URINE SPECIMEN Ordering [facility] Address: [address] [place], [place] [address] Performed By: #### 6 30-4, 69287-9 #### [facility] CLIA [id number] [address] [place] [address] [place] Eosinophils (Bld) [#/Vol] 0.10 10*3/uL Normal <0.46 [facility] Comment on above: Order Comment: Speci men Type: URINE SPECIMEN Ordering [facility] Address: [address] [place], [place] [address] Performed By: #### 6 30-4, 22322-7 #### [facility] CLIA [id number] [address] [place] [address] [place] Eosinophils/100 WBC (Bld) 1.0 % Normal [facility] Comment on above: Order Comment: Speci men Type: URINE SPECIMEN Ordering Facility[facility] Address: [address] [place] [address] Performed By: #### 6 30-4, 88317-5 #### [facility] CLIA [id number] [address] [place] [address] [place] Erythrocyte distribution width (RBC) [Ratio] 11.5 % Normal 11.5-15.0 [facility] Comment on above: Order Comment: Speci men Type: URINE SPECIMEN Ordering [facility] Address: [address] [place], [place] [address] Performed By: #### 6 30-4, 45433-2 #### [facility] CLIA [id number] [address] [place] [address] [place] Hematocrit (Bld) [Volume fraction] 39.8 % Normal 39.0-51.0 [facility] Comment on above: Order Comment: Speci men Type: URINE SPECIMEN Ordering [facility] Address: [address] [place], [place] [address] Performed By: #### 6 30-4, 28197-8 #### [facility] CLIA [id number] [address] [place] [address] [place] Hemoglobin (Bld) [Mass/Vol] 13.4 g/dL Normal 13.0-17.0 [facility] Comment on above: Order Comment: Speci men Type: URINE SPECIMEN Ordering Facility[facility] Address: [address] [place] [address] Performed By: #### 6 30-4, 96887-5 #### [facility] CLIA [id number] [address] [place] [address] [place] Lymphocytes (Bld) [#/Vol] 1.67 10*3/uL Normal 1.00-4.00 [facility] Comment on above: Order Comment: Speci men Type: URINE SPECIMEN Order[facility] Address: [address] [place] [address] Performed By: #### 6 30-4, 31863-4 #### [facility] CLIA [id number] [address] [place] [address] OF [facility] Lymphocytes/100 WBC (Bld) 17.0 % Normal [facility] Comment on above: Order Comment: Speci men Type: URINE SPECIMEN Ordering Facility: [facility] Address: [address] [place] [address] Performed By: #### 6 30-4, 98294-7 #### [facility] CLIA [id number] [address] [place] [address] [place] MCH (RBC) [Entitic mass] 31.5 pg Normal 26.0-34.0 [facility] Comment on above: Order Comment: Speci men Type: URINE SPECIMEN Ordering Facility[facility] Address: [address] [place] [address] Performed By: #### 6 30-4, 49599-6 #### [facility] CLIA [id number] [address] [place] [address] [place] MCHC (RBC) [Mass/Vol] 33.7 g/dL Normal 30.5-36.0 [facility] Comment on above: Order Comment: Speci men Type: URINE SPECIMEN Ordering [facility] Address: [address] [place], [place] [address] Performed By: #### 6 30-4, 46107-7 #### [facility] CLIA [id number] [address] [place] [address] [place] MCV (RBC) [Entitic vol] 93.4 fL Normal 80.0-100.0 [facility] Comment on above: Order Comment: Speci men Type: URINE SPECIMEN Ordering Facility[facility] Address: [address] [place] [address] Performed By: #### 6 30-4, 29810-3 #### [facility] CLIA [id number] [address] [place] [address] [place] Neutrophils (Bld) [#/Vol] 6.29 10*3/uL Normal 1.45-7.50 [facility] Comment on above: Order Comment: Speci men Type: URINE SPECIMEN Ordering Facility[facility] Address: [address] [place] [address] Performed By: #### 6 30-4, 33256-5 #### [facility] CLIA [id number] [address] [place] [address] [place] Neutrophils/100 WBC (Bld) 64.0 % Normal [facility] Comment on above: Order Comment: Speci men Type: URINE SPECIMEN Ordering Facility: [facility] Address: [address] [place], [place] [address] Performed By: #### 6 30-4, 64755-9 #### [facility] CLIA [id number] [address] [place] [address] [place] Nucleated RBC/100 WBC (Bld) [Ratio] 0.0 /100 WBC Normal [facility] Comment on above: Order Comment: Speci men Type: URINE SPECIMEN Ordering Facility: [facility] Address: [address] [place] [address] Performed By: #### 6 30-4, 69899-5 #### [facility] CLIA [id number] [address] [place] [address] [place] PLATELET ESTIMATE Adequate Normal [facility] Comment on above: Order Comment: Speci men Type: URINE SPECIMEN Ordering Facility[facility] Address: [address] [place], [place] [address] Performed By: #### 6 30-4, 57717-8 #### [facility] CLIA [id number] [address] [place] [address] [place] Platelet mean volume (Bld) [Entitic vol] 10.2 fL Normal 9.0-12.7 [facility] Comment on above: Order Comment: Speci men Type: URINE SPECIMEN Ordering Facility: [facility] Address: [address] [place], [place] [address] Performed By: #### 6 30-4, 12485-8 #### [facility] CLIA [id number] [address] [place] [address] [place] Platelets (Bld) [#/Vol] 258 10*3/uL Normal 150-400 [facility] Comment on above: Order Comment: Speci men Type: URINE SPECIMEN Ordering Facility: [facility] Address: [address] [place], [place] [address] Performed By: #### 6 30-4, 24416-4 #### [facility] CLIA [id number] [address] [place] [address] [place] RBC (Bld) [#/Vol] 4.26 10*6/uL Normal 4.20-6.00 [facility] Comment on above: Order Comment: Speci men Type: URINE SPECIMEN Ordering Facility: [facility] Address: [address] [place], [place] [address] Performed By: #### 6 30-4, 77324-1 #### [facility] CLIA [id number] [address] [place] [address] [place] RED CELL MORPH Reviewed: unremarkable Normal [facility] Comment on above: Order Comment: Speci men Type: URINE SPECIMEN Ordering Facility: [facility] Address: [address] [place] [address] Performed By: #### 6 30-4, 37993-1 #### [facility] CLIA [id number] [address] [place] [address] [place] WAM - ABS BASO 0.00 k/uL Normal <0.11 [facility] Comment on above: Order Comment: Speci men Type: URINE SPECIMEN Ordering Facility: [facility] Address: [address] [place] [address] Performed By: #### 6 30-4, 85483-5 #### [facility] CLIA [id number] [address] [place] [address] [place] WAM - ABS MONO 1.77 k/uL High <0.87 [facility] Comment on above: Order Comment: Speci men Type: URINE SPECIMEN Ordering Facility: [facility] Address: [address] [place], [place] [address] Performed By: #### 6 30-4, 47219-6 #### [facility] CLIA [id number] [address] [place] [address] [place] WAM - MONO% 18.0 % Normal [facility] Comment on above: Order Comment: Speci men Type: URINE SPECIMEN Ordering Facility: [facility] Address: [address] [place], [place] [address] Performed By: #### 6 30-4, 71087-9 #### [facility] CLIA [id number] [address] [place] [address] [place] WAM ABSOLUTE NRBC <0.01 Normal <0.01 [facility] Comment on above: Order Comment: Speci men Type: URINE SPECIMEN Ordering Facility: [facility] Address: [address] [place] [id number] Performed By: #### 6 30-4, 53455-4 #### [facility] CLIA [id number] [address] [place] [address] [facility] [place] WBC (Bld) [#/Vol] 9.83 10*3/uL Normal 3.70-11.00 [facility] Comment on above: Order Comment: Speci men Type: URINE SPECIMEN Ordering Facility: [facility] Address: [address] [place], [place] [id number] Performed By: #### 6 30-4, 02602-9 #### [facility] CLIA [id number] [address] [place] [address] [place] ED NOTEon 11-07-2021 ED NOTE HNO ID: [id number] Author: Yoshi Schumacher RN Service: ? Author Type: Registered Nurse Type: ED Notes Filed: 11/07/2021 5:14 PM Note Text: Pt provided with discharged instructions. Medications gone over and all questions answered. Pt. Left with steady gait with friend for a ride. [facility] ED NOTE HNO ID: [id number] Author: Flaquita Donnelly RN Service: ? Author Type: Registered Nurse Type: ED Notes Filed: 11/07/2021 1:24 PM Note Text: Pt to ED for urinary retention. Pt had appointment with Urology on Wednesday, but was not able to be seen. Pt denies pain, but reports pressure in the bladder. Pt states he is not able to urinate completely and reports dribbling. [facility] ED PROV NOTEon 11-07-2021 ED PROV NOTE HNO ID: [id number] Author: Keely Gutierrez DO Service: Emergency Medicine [...] this Wednesday with his urologist out of [place] but was notified that his urologist had [...] Abnormal; Notable for the following components: Abs [place] 1.77 (*) <0.87 k/uL All other components [...] cysts one of which is mildly complex. Dispatch Clerk: LIANA Transcribe Date/Time: Nov 07 2021 2:57P [...] at th (more content not included)... Normal [facility] US KIDNEY/BLADDERon 11-08-19 22 US KIDNEY/BLADDER * [...] cysts one of which is mildly complex. Dispatch Clerk: LIANA Transcribe Date/Time: Nov 07 2021 2:57P Dictated by : NEHEMIAS COLBERT MD This examination was interpreted and the report reviewed and electronically signed by: NEHEMIAS COLBERT MD on Nov 07 2021 3:09PM EST [id number] Normal [facility] Urinalysis complete panel (U )on 11-07-2021 Bilirubin Ql (U) Negative Normal Negative [facility] Comment on above: Order Comment: Speci men Type: URINE SPECIMEN Ordering Facility: [facility] Address: [address] [place] [address] Performed By: #### 6 30-4, 70306-9 #### [facility] CLIA [id number] [address] [place] [address] [place] [address] [place] Clarity (Unsp spec) Clear Normal Clear [facility] Comment on above: Order Comment: Speci men Type: URINE SPECIMEN Ordering Facility: [facility] Address: [address] [place], [place] [address] Performed By: #### 6 30-4, 49404-0 #### [facility] CLIA [id number] [address] [place] [address] [place] Color (U) Yellow Normal Yellow [facility] Comment on above: Order Comment: Speci men Type: URINE SPECIMEN Ordering Facility: [facility] Address: [address] [place], [place] [address] Performed By: #### 6 30-4, 12384-8 #### [facility] CLIA [id number] [address] [place] [address] [place] Epithelial cells LM.HPF (Urine sed) [#/Area] Few Normal [facility] Comment on above: Order Comment: Speci men Type: URINE SPECIMEN Ordering Facility: [facility] Address: [address] [place], [place] [address] Performed By: #### 6 30-4, 87490-0 #### [facility] CLIA [id number] [address] [place] [address] [place] Glucose Test strip (U) [Mass/Vol] Negative Normal Negative [facility] Comment on above: Order Comment: Speci men Type: URINE SPECIMEN Ordering Facility: [facility] Address: [address] [place], [place] [address] Performed By: #### 6 30-4, 50560-0 #### [facility] CLIA [id number] [address] [place] [address] [place] Hemoglobin Ql (U) Negative Normal Negative [facility] Comment on above: Order Comment: Speci men Type: URINE SPECIMEN Ordering Facility: [facility] Address: [address] [place], [place] [address] Performed By: #### 6 30-4, 94587-4 #### [facility] CLIA [id number] [address] [place] [address] [place] Hyaline casts (Urine sed) [#/Area] 1-3 /LPF Abnormal 0 /LPF [facility] Comment on above: Order Comment: Speci men Type: URINE SPECIMEN Ordering Facility: [facility] Address: [address] [place] [address] Performed By: #### 6 30-4, 47519-2 #### [facility] CLIA [id number] [address] [place] [address] [place] Ketones Ql (U) Trace Abnormal Negative [facility] Comment on above: Order Comment: Speci men Type: URINE SPECIMEN Ordering Facility: [facility] Address: [address] [place] [address] Performed By: #### 6 30-4, 37851-8 #### [facility] CLIA [id number] [address] [place] [address] [place] Leukocyte esterase Test strip Ql (U) Negative Normal Negative [facility] Comment on above: Order Comment: Speci men Type: URINE SPECIMEN Ordering Facility: [facility] Address: [address] [place] [address] Performed By: #### 6 30-4, 22407-5 #### [facility] CLIA [id number] [address] [place] [address] [place] Nitrite Ql (U) Negative Normal Negative [facility] Comment on above: Order Comment: Speci men Type: URINE SPECIMEN Ordering Facility: [facility] Address: [address] [place], [place] [address] Performed By: #### 6 30-4, 98287-0 #### [facility] CLIA [id number] [address] [place] [address] [place] pH (U) 5.5 [pH] Normal 5.0-8.0 [facility] Comment on above: Order Comment: Speci men Type: URINE SPECIMEN Ordering Facility: [facility] Address: [address] [place] [address] Performed By: #### 6 30-4, 39032-8 #### [facility] CLIA [id number] [address] [place] [address] Protein (U) [Mass/Vol] Negative Normal Negative [facility] Comment on above: Order Comment: Speci men Type: URINE SPECIMEN Ordering Facility: [facility] Address: [address] [place] [address] Performed By: #### 6 30-4, 44254-8 #### [facility] CLIA [id number] [address] [place] [address] [place] RBC LM.HPF (Urine sed) [#/Area] 0-3 /HPF Normal 0-3 /HPF [facility] Comment on above: Order Comment: Speci men Type: URINE SPECIMEN Ordering Facility: [facility] Address: [address] [place] [address] Performed By: #### 6 30-4, 81354-8 #### [facility] CLIA [id number] [address] [place] [address] [place] Specific gravity (U) [Rel density] 1.024 Normal 1.005-1.030 [facility] Comment on above: Order Comment: Speci men Type: URINE SPECIMEN Ordering Facility: [facility] Address: [address] [place] [address] Performed By: #### 6 30-4, 95176-8 #### [facility] CLIA [id number] [address] [place] [address] [place] Urobilinogen Ql (U) 0.2 EU/dL Normal 0.2-1.0 EU/dL [facility] Comment on above: Order Comment: Speci men Type: URINE SPECIMEN Ordering Facility: [facility] Address: [address] [place] [address] Performed By: #### 6 30-4, 58150-5 #### [facility] CLIA [id number] [address] [place] [address] [place] WBC LM.HPF (Urine sed) [#/Area] 0-5 /HPF Normal 0-5 /HPF [facility] Comment on above: Order Comment: Speci men Type: URINE SPECIMEN Ordering Facility: [facility] Address: [address] [place] [address] Performed By: #### 6 30-4, 08025-3 #### [facility] CLIA [id number] [address] [place] [address] [place] Ambulatory Visit Summaryon 0 10-28-2021 Ambulatory Visit Summary NORBERTO WASHINGTON :1940 Visit Date:10/28/2021 Ambulatory Visit Instructions Your Diagnosis BPH with urinary obstruction Nocturia Post-void dribbling Incomplete emptying of bladder Urinary incontinence Tests Performed Urnls Dip Stick Auto w/o Microscopy POC 54330 Your Care Team Attending Physician - Paul [...] Where: [facility] [address] , [place] [address]- Medications What How Much When Instructions Unchanged [...] Urnls Dip Stick Auto w/o Microscopy POC 85945 (10/28/2021) Bilirubin Urine Dipstick - Negative Blood Urine Dipstick - Negative Glucose Urine Dipstick - Negative Ketones Urine Dipstick - Negative Leukocytes Urine Dipstick - Negative Nitrite Urine Dipstick - Negative Protein Urine Dipstick - Negative Specific [place] Urine Dipstick - 1.015 Urine Appearance Urine [...] ? Urina (more content not included)... Normal [facility] Patient Educationon 10-29-19 Patient Education Urology [...] Follow these instructions at home: ? Take [id number] and prescription medicines only as told by [...] You d (more content not included)... Normal [facility] Urology Office/Clinic Noteon 10-28-2021 Urology Office/Clinic [...] management of this change in voiding pattern. [facility] Staff Norberto is here today for [...] urine and/or bladder capacity by US- non-imaging 91351 PSA Total Urnls Dip Stick Auto w/o Microscopy POC 98326 Urology Procedure Order 2. Nocturia (R35.1: Nocturia) moderate, Variable 2-5 times per night Ordered: Measure Post Void residual urine and/or bladder capacity by US- non-imaging 18541 PSA Total Urology Procedure Order 3. Post-void dribbling (N39.43: Post-v (more content not included)... Normal [facility] Comment on above: Result Comment: Elec tronically Signed By: Billy Connolly MD, Paul Valdes\.br\Date and Time Signed: 10/28/21 08:47 EDT\.br\Electronically Co-Signed By: Jessie Rivera\.br\Date and Time Co-Signed: 10/28/21 08:39 EDT MICROALBUMIN URINEon 022 Albumin, Urine 5.6 ug/mL Normal Not Estab. [facility] Comment on above: Performed By: #### M ALBLC #### [facility] [address] [place] [address] Dr. Juan Pablo Kaminski US CAROTID ART [...] SAMY TORRES Date: 2021-10-23 17:19 Normal [facility] CBC AUTO DIFFon 10-21-2021 BASO # 0.0 103/ul Normal 0.0-0.1 [facility] Comment on above: Performed By: #### A 1C #### [facility] [address] [place] [address] Dr. Juan Pablo Kaminski Basophils/100 WBC (Bld) 0.5 % Normal 0.2-2.0 [facility] Comment on above: Performed By: #### A 1C #### [facility] [address] [place] [address] Dr. Juan Pablo Kaminski EO # 0.3 103/ul Normal 0.0-0.7 [facility] Comment on above: Performed By: #### A 1C #### [facility] [address] [place] [address] Dr. Juan Pablo Kaminski Eosinophils/100 WBC (Bld) 3.6 % Normal 0.9-7.0 [facility] Comment on above: Performed By: #### A 1C #### [facility] [address] [place] [address] Dr. Juan Pablo Kaminski Erythrocyte distribution width (RBC) [Ratio] 11.1 % Normal 11.0-15.0 [facility] Comment on above: Performed By: #### A 1C #### [facility] [address] [place] [address] Dr. Juan Pablo Kaminski Hematocrit (Bld) [Volume fraction] 41.8 % Critically low 42.0-54.0 [facility] Comment on above: Performed By: #### A 1C #### [facility] [address] [place] [address] Dr. Juan Pablo Kaminski Hemoglobin (Bld) [Mass/Vol] 14.1 g/dL Normal 14.0-18.0 [facility] Comment on above: Performed By: #### A 1C #### [facility] [address] [place] [address] Dr. Juan Pablo Kaminski IG # 0.03 10e3/ul Normal 0.00-0.03 [facility] Comment on above: Performed By: #### A 1C #### [facility] [address] [place] [address] Dr. Juan Pablo Kaminski IG % 0.4 % Normal 0.0-0.5 [facility] Comment on above: Performed By: #### A 1C #### [facility] [address] [place] [address] Dr. Juan Pablo Kaminski LYMPH # 2.2 103/ul Normal 1.2-3.8 [facility] Comment on above: Performed By: #### A 1C #### [facility] [address] [place] [address] Dr. Juan Pablo Kaminski Lymphocytes/100 WBC (Bld) 29.4 % Normal 20.5-60.0 [facility] Comment on above: Performed By: #### A 1C #### [facility] [address] [place] [address] Dr. Juan Pablo Kaminski MANUAL DIFF REQ NO Normal [facility] Comment on above: Performed By: #### A 1C #### [facility] [address] [address] [address] Juan Pablo Kaminski MCH (RBC) [Entitic mass] 31.8 pg Normal 25.9-34.0 [facility] Comment on above: Performed By: #### A 1C #### [facility] [address] [place] [address] Dr. Juan Pablo Kaminski MCHC (RBC) [Mass/Vol] 33.7 g/dL Normal 29.9-35.2 [facility] Comment on above: Performed By: #### A 1C #### [facility] [address] [place] [address] Dr. Juan Pablo Kaminski MCV (RBC) [Entitic vol] 94.1 fL Critically high 80.0-94.0 [facility] Comment on above: Performed By: #### A 1C #### [facility] [address] [place] [address] Dr. Juan Pablo Kaminski MONO # 0.9 103/ul Critically high 0.3-0.8 [facility] Comment on above: Performed By: #### A 1C #### [facility] [address] [place] [address] Dr. Juan Pablo Kaminski Monocytes/100 WBC (Bld) 11.7 % Normal 1.7-12.0 [facility] Comment on above: Performed By: #### A 1C #### [facility] [address] [place] [address] Dr. Juan Pablo Kaminski NEUT # 4.0 103/ul Normal 1.4-6.5 [facility] Comment on above: Performed By: #### A 1C #### [facility] [address] [place] [address] Dr. Juan Pablo Kaminski Neutrophils/100 WBC (Bld) 54.4 % Normal 43.0-75.0 [facility] Comment on above: Performed By: #### A 1C #### [facility] [address] [place] [address] Dr. Juan Pablo Kaminski Platelet mean volume (Bld) [Entitic vol] 8.6 fL Critically low 9.5-13.5 [facility] Comment on above: Performed By: #### A 1C #### [facility] [address] [address] [address] Juan Pablo Kaminski PLT 231 103/ul Normal 150-450 [facility] Comment on above: Performed By: #### A 1C #### [facility] [address] [place] [address] Dr. Juan Pablo Kaminski RBC 4.44 106/ul Critically low 4.70-6.10 [facility] Comment on above: Performed By: #### A 1C #### [facility] [address] [place] [address] Dr. Juan Pablo Kaminski WBC 7.3 103/ul Normal 4.0-11.0 [facility] Comment on above: Performed By: #### A 1C #### [facility] [address] [place] [address] Dr. Juan Pablo Kaminski DIRECT LDLon 10-21-2021 Cholesterol in LDL [Mass/Vol] 106 mg/dL Normal [facility] Comment on above: Performed By: #### A LT, BMP, DLDL #### [facility] [address] [place] [address] Dr. Juan Pablo Kaminski DLDL NORMAL SEE BELOW Normal [facility] Comment on above: Result Comment: <100 mg/dl OPTIMAL 100 - 129 mg/dl NEAR OR ABOVE OPTIMAL 130 - 159 mg/dl BORDERLINE HIGH 160 - 189 mg/dl HIGH >190 mg/dl VERY HIGH Performed By: #### A LT, BMP, DLDL #### [facility] [address] [place] [address] Dr. Juan Pablo Kaminski GLYCOHEMOGLOBIN A1Con 2021 ADA RECOMMENDATION SEE BELOW Normal [facility] Comment on above: Result Comment: ADA RECOMMENDED LIMIT 4.0 - 6.0 ADA THERAPEUTIC TARGET < 7.0 ACTION SUGGESTED > 7.0 Performed By: #### A 1C #### [facility] [address] [place] [address] Dr. Juan Pablo Kaminski Glucose [Mass/Vol] 120 mg/dL Normal [facility] Comment on above: Performed By: #### A 1C #### [facility] [address] [place] [address] Dr. Juan Pablo Kaminski HbA1c (Bld) [Mass fraction] 5.8 % Normal 4.5-6.2 [facility] Comment on above: Performed By: #### A 1C #### [facility] [address] [place] [address] Dr. Juan Pablo Kaminski PROF CHEM 8 (BAS METB)on Anion gap [Moles/Vol] 12.7 mmol/L Normal [facility] Comment on above: Performed By: #### A 1C #### [facility] [address] [place] [address] Dr. Juan Pablo Kaminski Calcium [Mass/Vol] 8.7 mg/dL Normal 8.5-10.1 [facility] Comment on above: Performed By: #### A 1C #### [facility] [address] [place] [address] Dr. Juan Pablo Kaminski Chloride [Moles/Vol] 98 mmol/L Normal 98-107 [facility] Comment on above: Performed By: #### A 1C #### [facility] [address] [place] [address] Dr. Juan Pablo Kaminski CO2 [Moles/Vol] 28.0 mmol/L Normal 21.0-32.0 [facility] Comment on above: Performed By: #### A 1C #### [facility] [address] [place] [address] Dr. Juan Pablo Kaminski Creatinine [Mass/Vol] 1.07 mg/dL Normal 0.70-1.30 [facility] Comment on above: Performed By: #### A 1C #### [facility] [address] [place] [address] Dr. Juan Pablo Kaminski EGFR-AF TURKS AND [place] ISLANDER >60 Normal >=60 [facility] Comment on above: Performed By: #### A 1C #### [facility] [address] [place] [address] Dr. Juan Pablo Kaminski EGFR-NON AF TURKS AND CAICOS ISLANDER >60 Normal >=60 [facility] Comment on above: Performed By: #### A 1C #### [facility] [address] [place] [address] Dr. Juan Pablo Kaminski Glucose [Mass/Vol] 133 mg/dL Critically high 74-106 [facility] Comment on above: Performed By: #### A 1C #### [facility] [address] [place] [address] Dr. Juan Pablo Kaminski Potassium [Moles/Vol] 4.7 mmol/L Normal 3.5-5.1 [facility] Comment on above: Performed By: #### A 1C #### [facility] [address] [place] [address] Dr. Juan Pablo Kaminski Sodium [Moles/Vol] 134 mmol/L Critically low 136-145 [facility] Comment on above: Performed By: #### A 1C #### [facility] [address] [place] [address] Dr. Juan Pablo Kaminski Urea nitrogen [Mass/Vol] 17.0 mg/dL Normal 7.0-18.0 [facility] Comment on above: Performed By: #### A 1C #### [facility] [address] [place] [address] Dr. Juan Pablo Kaminski Urea nitrogen/Creatinine [Mass ratio] 15.9 mg/mg Normal [facility] Comment on above: Performed By: #### A 1C #### [facility] [address] [place] [address] Dr. [facility] ALT [Catalytic activity/Vol] 31 U/L Normal 16-63 [facility] Comment on above: Performed By: #### A 1C #### [facility] [address] [place] [address] Dr. Juan Pablo Kaminski GLYCOHEMOGLOBIN A1Con 2021 ADA RECOMMENDATION SEE BELOW Normal [facility] Comment on above: Result Comment: ADA RECOMMENDED LIMIT 4.0 - 6.0 ADA THERAPEUTIC TARGET < 7.0 ACTION SUGGESTED > 7.0 Performed By: #### A 1C #### [facility] [address] [place] [address] Dr. Juan Pablo Kaminski Glucose [Mass/Vol] 131 mg/dL Normal [facility] Comment on above: Performed By: #### A 1C #### [facility] [address] [place] [address] Dr. Juan Pablo Kaminski HbA1c (Bld) [Mass fraction] 6.2 % Normal 4.5-6.2 [facility] Comment on above: Performed By: #### A 1C #### [facility] [address] [address] [address] Juan Pablo Kaminski Vital Signs Date Time Vital Sign Value Performing Clinician Faci lity 03-17-2023 10:30-0500 Body height 190.5 cm Campbell Ball Other [employer] Other 03-17-2023 10:30-0500 Body mass index (BMI) [Ratio] 27.55 kg/m2 Campbell Ball Other [employer] Other 03-17-2023 10:30-0500 Body weight 99.97 kg Campbell Ball Other [employer] Other 03-17-2023 10:30-0500 Diastolic blood pressure 67 mm[Hg] Campbell Ball Other [employer] Other 03-17-2023 10:30-0500 Respiratory rate 12 /min Campbell Ball Other [employer] Other 03-17-2023 10:30-0500 Systolic blood pressure 159 mm[Hg] Campbell Ball Other [employer] Other 02-23-2023 09:30-0500 Body height 190.5 cm Campbell Ball Other [employer] Other 02-23-2023 09:30-0500 Body mass index (BMI) [Ratio] 28.02 kg/m2 Campbell Ball Other [employer] Other 02-23-2023 09:30-0500 Body weight 101.7 kg Campbell Ball Other [employer] Other 02-23-2023 09:30-0500 Diastolic blood pressure 78 mm[Hg] Campbell Ball Other [employer] Other 02-23-2023 09:30-0500 Respiratory rate 12 /min Campbell Ball Other [employer] Other 02-23-2023 09:30-0500 Systolic blood pressure 157 mm[Hg] Campbell Ball Other [employer] Other 02-19-2023 10:45-0500 Body height 190.5 cm Campbell Ball Other [employer] Other 02-19-2023 10:45-0500 Body mass index (BMI) [Ratio] 28 kg/m2 Campbell Ball Other [employer] Other 02-19-2023 10:45-0500 Body weight 101.61 kg Campbell Ball Other [employer] Other 02-19-2023 10:45-0500 Diastolic blood pressure 72 mm[Hg] Campbell Ball Other [employer] Other 02-19-2023 10:45-0500 Respiratory rate 12 /min Campbell Ball Other [employer] Other 02-19-2023 10:45-0500 Systolic blood pressure 144 mm[Hg] Campbell Ball Other [employer] Other 02-02-2023 13:37-0500 Body weight 102.06 kg Leticia Milian APRN.NETWORK SECURITY OFFICER Work Phone: [facility] 02-02-2023 13:37-0500 Diastolic blood pressure 70 mm[Hg] Leticia Rukhsana BOOGIENETWORK SECURITY OFFICER Work Phone: [facility] 02-02-2023 13:37-0500 Heart rate 65 /min Leticia Milian [employer] LEVEL JAVA DEVELOPER.NETWORK SECURITY OFFICER Work Phone: [facility] 02-02-2023 13:37-0500 Systolic blood pressure 146 mm[Hg] Leticia Milian [employer]EV[employer] JAVA DEVELOPER.NETWORK SECURITY OFFICER Work Phone: [facility] 09-22-2022 12:15-0400 Body height 190.5 cm Campbell Ball Other [employer] Other 09-22-2022 12:15-0400 Diastolic blood pressure 82 mm[Hg] Campbell Ball Other [employer] Other 09-22-2022 12:15-0400 Systolic blood pressure 135 mm[Hg] Campbell Ball Other [employer] Other 09-17-2022 09:00-0400 Body height 190.5 cm Campbell Ball Other [employer] Other 09-17-2022 09:00-0400 Body mass index (BMI) [Ratio] 27.57 kg/m2 Campbell Ball Other [employer] Other 09-17-2022 09:00-0400 Body weight 100.06 kg Campbell Ball Other [employer] Other 09-17-2022 09:00-0400 Diastolic blood pressure 62 mm[Hg] Campbell Ball Other [employer] Other 09-17-2022 09:00-0400 Respiratory rate 12 /min Campbell Ball Other [employer] Other 09-17-2022 09:00-0400 Systolic blood pressure 128 mm[Hg] Campbell Ball Other [employer] Other 06-18-2022 10:00-0400 Body height 190.5 cm Campbell Ball Other [employer] Other 06-18-2022 10:00-0400 Body mass index (BMI) [Ratio] 28.02 kg/m2 Campbell Ball Other [employer] Other 06-18-2022 10:00-0400 Body weight 101.7 kg Campbell Ball Other [employer] Other 06-18-2022 10:00-0400 Diastolic blood pressure 62 mm[Hg] Campbell Ball Other [employer] Other 06-18-2022 10:00-0400 Respiratory rate 12 /min Campbell Ball Other [employer] Other 06-18-2022 10:00-0400 Systolic blood pressure 119 mm[Hg] Campbell Ball Other [employer] Other 04-08-2022 12:00-0500 Body height 190.5 cm Campbell Ball Other [employer] Other 04-08-2022 12:00-0500 Body mass index (BMI) [Ratio] 27.82 kg/m2 Campbell Ball Other [employer] Other 04-08-2022 12:00-0500 Body temperature 97.1 [degF] Campbell Ball Other [employer] Other 04-08-2022 12:00-0500 Body weight 100.97 kg Campbell Ball Other [employer] Other 04-08-2022 12:00-0500 Diastolic blood pressure 68 mm[Hg] Campbell Ball Other [employer] Other 04-08-2022 12:00-0500 SaO2% (BldA) [Mass fraction] 97 % Campbell Ball Other [employer] Other 04-08-2022 12:00-0500 Systolic blood pressure 124 mm[Hg] Campbell Ball Other [employer] Other 03-20-2022 10:00-0500 Body height 190.5 cm Campbell Ball Other [employer] Other 03-20-2022 10:00-0500 Body mass index (BMI) [Ratio] 27.95 kg/m2 Campbell Ball Other [employer] Other 03-20-2022 10:00-0500 Body weight 101.42 kg Campbell Ball Other [employer] Other 03-20-2022 10:00-0500 Diastolic blood pressure 60 mm[Hg] Campbell Ball Other [employer] Other 03-20-2022 10:00-0500 Respiratory rate 12 /min Campbell Ball Other [employer] Other 03-20-2022 10:00-0500 Systolic blood pressure 112 mm[Hg] Capmbell Ball Other [employer] Other 01-08-2022 08:47-0400 Body weight 97.52 kg Leonard Dugan MD Work Phone: [facility] 01-08-2022 08:47-0400 Diastolic blood pressure 61 mm[Hg] Leonard Dugna MD Work Phone: [facility] 01-08-2022 08:47-0400 Heart rate 72 /min Leonard Dugan MD Work Phone: [facility] 01-08-2022 08:47-0400 Systolic blood pressure 139 mm[Hg] Leonard Dugan MD Work Phone: [facility] 12-26-2021 08:32-0400 Body temperature 98 [degF] DO Campbell Ball Work Phone: [facility] 12-26-2021 08:32-0400 Diastolic blood pressure 62 mm[Hg] DO Campbell Ball Work Phone: [facility] 12-26-2021 08:32-0400 Heart rate 75 /min DO Campbell Ball Work Phone: [facility] 12-26-2021 08:32-0400 Respiratory rate 18 /min DO Campbell Ball Work Phone: [facility] 12-26-2021 08:32-0400 SaO2% (BldA) [Mass fraction] 98 % DO Campbell Ball Work Phone: [facility] 12-26-2021 08:32-0400 Systolic blood pressure 146 mm[Hg] DO Campbell Ball Work Phone: [facility] 12-17-2021 16:22-0400 Body height 190.5 cm DO Campbell Ball Work Phone: [facility] 12-17-2021 16:22-0400 Body weight 97.52 kg DO Campbell Ball Work Phone: [facility] 12-17-2021 16:19-0400 Body temperature 98.4 [degF] DO Campbell Ball Work Phone: [facility] 12-17-2021 16:19-0400 Diastolic blood pressure 63 mm[Hg] DO Campbell Ball Work Phone: [facility] 12-17-2021 16:19-0400 Heart rate 66 /min DO Campbell Ball Work Phone: [facility] 12-17-2021 16:19-0400 Respiratory rate 16 /min DO Campbell Ball Work Phone: [facility] 12-17-2021 16:19-0400 SaO2% (BldA) [Mass fraction] 96 % DO Campbell Ball Work Phone: [facility] 12-17-2021 16:19-0400 Systolic blood pressure 135 mm[Hg] DO Campbell Ball Work Phone: [facility] 12-16-2021 14:41-0400 Diastolic blood pressure 62 mm[Hg] Leonard Dugan MD Work Phone: [facility] 12-16-2021 14:41-0400 Heart rate 69 /min Leonard Dugan MD Work Phone: [facility] 12-16-2021 14:41-0400 Respiratory rate 16 /min Leonard Dugan MD Work Phone: [facility] 12-16-2021 14:41-0400 Systolic blood pressure 141 mm[Hg] Leonard Dugan MD Work Phone: [facility] 12-11-2021 18:25-0400 Body temperature 97.5 [degF] DO Campbell Ball Work Phone: [facility] 12-11-2021 18:25-0400 Diastolic blood pressure 88 mm[Hg] DO Campbell Ball Work Phone: [facility] 12-11-2021 18:25-0400 Heart rate 67 /min DO Campbell Ball Work Phone: [facility] 12-11-2021 18:25-0400 Respiratory rate 20 /min DO Campbell Ball Work Phone: [facility] 12-11-2021 18:25-0400 SaO2% (BldA) [Mass fraction] 99 % DO Campbell Ball Work Phone: [facility] 12-11-2021 18:25-0400 Systolic blood pressure 175 mm[Hg] DO Campbell Ball Work Phone: [facility] 12-11-2021 16:57-0400 Body height 190.5 cm DO Campbell Ball Work Phone: [facility] 12-11-2021 16:57-0400 Body weight 98.5 kg DO Campbell Ball Work Phone: [facility] 12-10-2021 10:50-0400 Body weight 95.25 kg Nurse Emelia Work Phone: [facility] 12-10-2021 10:50-0400 Diastolic blood pressure 80 mm[Hg] Nurse Emelia Work Phone: [facility] 12-10-2021 10:50-0400 Heart rate 59 /min Nurse Emelia Work Phone: [facility] 12-10-2021 10:50-0400 Systolic blood pressure 152 mm[Hg] Nurse Emelia Work Phone: [facility] 12-09-2021 14:27-0400 Body weight 95.25 kg [employer] [facility] Work Phone: [facility] 12-09-2021 14:27-0400 Diastolic blood pressure 68 mm[Hg] [employer] Work Phone: [facility] 12-09-2021 14:27-0400 Heart rate 70 /min [employer] [facility] Work Phone: [facility] 12-09-2021 14:27-0400 Systolic blood pressure 164 mm[Hg] [employer] Work Phone: [facility] 11-12-2021 11:23-0400 Body weight 96.16 kg Leonard Dugan MD Work Phone: [facility] 11-12-2021 11:23-0400 Diastolic blood pressure 73 mm[Hg] Leonard Dugan MD Work Phone: [facility] 11-12-2021 11:23-0400 Heart rate 56 /min Leonard Dugan MD Work Phone: [facility] 11-12-2021 11:23-0400 Systolic blood pressure 162 mm[Hg] Leonard Dugan MD Work Phone: [facility] Encounters Encounter Date Encounter Type Care Provider Facility Start: 03-17-2023 End: 03-17-2023 ambulatory Campbell Naranjo Other [employer] Other Start: 03-17-2023 Transitional care manage srvc 14 day discharge Campbell Naranjo [facility] Start: 03-04-2023 End: 03-04-2023 ambulatory Campbell Naranjo Other [employer] Other Start: 03-04-2023 Telephone encounter [facility] Start: 02-23-2023 End: 02-23-2023 ambulatory Campbell Naranjo Other [employer] Other Start: 02-23-2023 Office outpatient vi sit 15 minutes Campbell Naranjo [facility] Start: 02-23-2023 Telephone encounter Campbell Naranjo [facility] Start: 02-19-2023 End: 02-19-2023 ambulatory Campbell Naranjo Other [employer] Other Start: 02-19-2023 Office outpatient vi sit 15 minutes Campbell Naranjo [facility] Start: 02-02-2023 End: 02-02-2023 ambulatory LETICIA MILIAN Facility:[facility] Start: 02-02-2023 End: 02-02-2023 Patient encounter procedure Leticia Milian [employer] JAVA DEVELOPER.NETWORK SECURITY OFFICER Work Phone: Urology Comment on above: BPH with obstruction /lower urinary tract symptoms (Primary Dx); Recurrent UTI; Weak urinary stream Start: 01-19-2023 End: 01-19-2023 ambulatory LETICIA MILIAN Facility:[facility] Start: 01-13-2023 End: 01-13-2023 Emergency department patient visit Campbell Naranjo Facility:[facility] Start: 01-13-2023 End: 01-13-2023 Emergency department patient visit DO Campbell Naranjo Work Phone: [facility] Work Phone: Start: 12-21-2022 End: 12-21-2022 ambulatory Campbell Naranjo Other [employer] Other Start: 12-21-2022 Telephone encounter Campbell Ro [facility] Start: 09-22-2022 End: 09-22-2022 ambulatory Campbell Naranjo Other [employer] Other Start: 09-22-2022 Office outpatient vi sit [address] [facility] Start: 09-20-2022 End: 09-20-2022 ambulatory Cornell Baptiste Other [employer] Other Start: 09-20-2022 Encounter by [employer] raissa Bapt[facility] Start: 09-17-2022 End: 09-17-2022 ambulatory Campbell Naranjo Other [employer] Other Start: 09-17-2022 Office outpatient vi sit [address] [facility] Start: 09-15-2022 End: 09-15-2022 ambulatory Cornell Baptiste Other [employer] Other Start: 09-15-2022 Encounter by [employer] raissa [facility] Start: 07-28-2022 End: 07-28-2022 ambulatory LETICIA MILIAN Facility:[facility] Start: 07-20-2022 End: 07-20-2022 ambulatory LETICIA MILIAN Facility:[facility] Start: 06-25-2022 End: 06-26-[address] CAMPBELL NARANJO Facility:[facility] Start: 06-18-2022 End: 06-18-2022 ambulatory Campbell Naranjo Other [employer] Other Start: 06-18-2022 Office outpatient vi sit [address] [facility] Start: 06-02-2022 End: 06-03-[address] CAMPBELL NARANJO Facility:[facility] Start: 04-08-2022 End: 04-08-2022 ambulatory Campbell Naranjo Other [employer] Other Start: 04-08-2022 Office outpatient vi sit 15 minutes Campbell Naranjo [facility] Start: 03-24-2022 End: 03-24-2022 ambulatory Campbell Naranjo Other [facility] Other Start: 03-24-2022 Telephone encounter Campbell Naranjo [facility] Start: 03-20-2022 Office outpatient vi sit 25 minutes Campbell Naranjo [facility] Start: 03-20-2022 End: 03-21-[address] CAMPBELL NARANJO [facility] Other Start: 01-08-2022 End: 01-08-2022 Patient encounter procedure Leonard Dugan MD Work Phone: Urology Comment on above: Chronic epididymitis (Primary Dx); Left hydrocele; Weak urinary stream; BPH without obstruction/lower urinary tract symptoms; Epididymitis Start: 01-07-2022 Refill Leonard Dugan MD Work Phone: Urology Comment on above: Refill Request Start: 12-26-2021 End: 12-26-2021 ambulatory DO Campbell Naranjo Work Phone: [facility] Work Phone: Start: 12-26-2021 End: 12-26-2021 Discharged Recurring DO Campbell Naranjo Work Phone: [facility] Start: 12-25-2021 End: 12-26-[address] CAMPBELL NARANJO Facility: Start: 12-17-2021 End: 12-17-2021 Emergency department patient visit DO Campbell Naranjo Work Phone: [facility] Start: 12-16-2021 End: 12-16-2021 Patient encounter procedure Leonard Dugan MD Work Phone: Urology Comment on above: Retention of urine ( Primary Dx); Flaccid bladder Start: 12-15-2021 Telephone encounter Leticia puentes APRN.CNP Work Phone: Urology Comment on above: Patient Update Start: 12-11-2021 End: 12-11-2021 Emergency department patient visit DO Campbell Naranjo Work Phone: [facility] Start: 12-11-2021 Telephone encounter Leonard Dugan MD Work Phone: Urology Comment on above: Patient Update Start: 12-10-2021 End: 12-10-2021 Nursing evaluation of patient and report Nurse [facility]elia Work Phone: Urology Comment on above: Urinary tract infect ion without hematuria, site unspecified (Primary Dx); Feeling of incomplete bladder emptying; Benign prostatic hyperplasia with urinary retention Start: 12-09-2021 End: 12-09-2021 Nursing evaluation of patient and report [employer] [facility] Work Phone: Urology Comment on above: Urinary frequency (P rimary Dx); Urinary urgency; Urinary straining; Feeling of incomplete bladder emptying Start: 12-08-2021 Telephone encounter Leonard Dugan MD Work Phone: Urology Comment on above: Appointment (Resched ule catheter change) Start: 11-26-2021 End: 11-27-2021 Emergency department patient visit CAMPBELL NARANJO Facility:[facility] Start: 11-21-2021 Telephone encounter Leonard Dugan MD [...] Emergency department patient visit RAN LEES JR Facility:[facility] Start: 10-23-2021 End: 10-24-[address] CAMPBELL NARANJO Facility:[facility] Start: 10-21-2021 End: 10-22-[address] CAMPBELL NARANJO Facility:[facility] Start: 10-20-2021 Adult health examination Campbell Naranjo Other [employer] Other Start: 07-17-2021 End: 07-18-[address] CAMPBELL NARANJO Facility: Start: 01-09-2020 End: 01-09-2020 Pre-procedure evaluation check Campbell Naranjo Other [facility] Other Procedures Date Procedure Procedure Detail Performing [...] microalbumin profile DTaP,Tdap,Td Vaccine (3 - Tdap) [facility] Start: 11-13-2022 Covid-19 Vaccine ( season) Covid-19 Vaccine ( season) [facility] Start: 03-15-2022 Advance Directive Discussion Advance Directive Discussion [facility] Start: 03-15-2022 Depression Assessment Depression Ass essment [facility] Start: 01-08-2022 End: 03-10-2022 Bacteria identified in Urine by Culture URINE CULTURE Microbiology Routine Left hydrocele Chronic epididymitis Weak urinary stream BPH without obstruction/lower urinary tract symptoms Epididymitis Expected: 01/08/2022 (Approximate), Expires: 03/10/2022 [facility] Work Phone: Comment on above: Expected: 01/08/2022 (Approximate), Expires: 03/10/2022 Start: 01-08-2022 End: 03-10-2022 URINALYSIS, REFLEX MICROSCOPIC URINALYSIS, REFLEX MICROSCOPIC Lab Routine Left hydrocele Chronic epididymitis Weak urinary stream BPH without obstruction/lower urinary tract symptoms Epididymitis Expected: 01/08/2022 (Approximate), Expires: 03/10/2022 [facility] Work Phone: Comment on above: Expected: 01/08/2022 (Approximate), Expires: 03/10/2022 Start: 12-10-2021 End: 02-09-2022 Bacteria identified in Urine by Culture URINE CULTURE Microbiology Routine Urinary tract infection without hematuria, site unspecified Expected: 12/10/2021, Expires: 02/09/2022 [facility] Work Phone: Comment on above: Expected: 12/10/2021 , Expires: 02/09/2022 Start: 11-13-2021 Influenza vaccination INFLUENZA (#1) [facility] Start: 11-12-2021 URODYNAMICS URODYNAMICS Pr ocedures Routine 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 Expected: 11/12/2021 (Approximate) [facility] Work Phone: Comment on above: Expected: 11/12/2021 (Approximate) Start: 08-11-2021 COVID-19 VACCINE (5 - Booster for Pfizer series) COVID-19 VACCINE (5 - Booster for Pfizer series) [facility] Start: 03-15-2021 ADVANCE DIRECTIVE DISCUSSION ADVANCE DIRECTIVE DISCUSSION [facility] Start: 03-15-2021 DEPRESSION ASSESSMENT DEPRESSION ASS ESSMENT [facility] Start: 05-26-2012 3 comp foot exam completed DIABETIC FOOT EXAM [facility] Start: 1998 Hepatitis B Vaccine (1 of 3 - Risk 3-dose series) Hepatitis B Vaccine (1 of 3 - Risk 3-dose series) [facility] Start: 1998 RSV Vaccine (1 - 1-d ose 60+ series) RSV Vaccine (1 - 1-dose 60+ series) [facility] Start: 1988 SHINGRIX VACCINE (1 of 2) SHINGRIX VACCINE (1 of 2) [facility] Start: 1957 Urine microalbumin profile DTAP,TDAP,TD (1 - Tdap) [facility] Start: 1956 Hepatitis B surface antibody level LDL CHOLESTEROL [facility] Start: 1948 Hepatitis B screening URINE ALBUMIN:CREATININE RATIO [facility] Start: 1948 Hepatitis C antibody , confirmatory test DILATED RETINAL EXAM [facility] Start: 1944 PNEUMOCOCCAL: 65+ (1 - PCV) PNEUMOCOCCAL: 65+ (1 - PCV) [facility] Start: 1943 Hemoglobin A1c/Hemoglobin.total in Blood HBA1C [facility] Bacteria identified in Urine by Culture [facility] End: 02-02-2024 Bacteria identified in Urine by Culture URINE CULTURE Microbiology Routine Recurrent UTI 5 Occurrences starting 02/02/2023 until 02/02/2024 [facility] Work Phone: Comment on above: 5 Occurrences starti ng 02/02/2023 until 02/02/2024 Patient Education [facility] Work Phone: Patient referral [facility] Work Phone: End: 01-14-2024 Urinalysis complete panel - Urine URINALYSIS, WITH MICROSCOPIC Lab Routine Recurrent UTI 5 Occurrences starting 02/02/2023 until 01/14/2024 [facility] Work Phone: Comment on above: 5 Occurrences starti ng 02/02/2023 until 01/14/2024 [facility] Immunizations Immunization Date Immunization Notes Care Provider Jens eid 12-01-2022 influenza, high dose seasonal, preservative-free Campbell Naranjo Other [employer] Other 12-19-2021 influenza virus vaccine, split virus (incl. purified surface antigen) Campbell Naranjo Other [employer] Other 12-10-2020 influenza virus vaccine, split virus (incl. purified surface antigen) Campbell Naranjo Other [employer] Other 01-09-2020 influenza virus vaccine, split virus (incl. purified surface antigen) Campbell Naranjo Other [employer] Other 01-14-2018 influenza virus vaccine, split virus (incl. purified surface antigen) Campbell Naranjo Other [employer] Other 12-30-2016 influenza virus vaccine, split virus (incl. purified surface antigen) Campbell Naranjo Other [employer] Other 03-16-2016 influenza virus vaccine, split virus (incl. purified surface antigen) Campbell Naranjo Other [employer] Other 05-01-2015 pneumococcal conjuga te vaccine, 13 valent Campbell Naranjo Other [employer] Other 05-01-2015 pneumococcal Conjuga te, unspecified formulation; Translations: [Need for prophylactic vaccination against Streptococcus pneumoniae (pneumococcus)] Campbell Naranjo Other [employer] Other 12-28-2012 tetanus and diphther ia toxoids, adsorbed, preservative free, for adult use (5 Lf of tetanus toxoid and 2 Lf of diphtheria toxoid) Campbell Naranjo Other [employer] Other 01-28-2012 diphtheria, tetanus toxoids and acellular pertussis vaccine, unspecified formulation Campbell Naranjo Other [employer] Other 01-20-2012 pneumococcal polysaccharide vaccine, 23 valent Campbell Naranjo Other [employer] Other 05-18-2011 pneumococcal polysaccharide vaccine, 23 valent Campbell Naranjo Other [employer] Other Payers Date Payer Category Payer Self-pay 2016 Unknown KRISTIN SALINAS SUPPLEMENT [id number] 2016-Present [phone] [address] [place] [address] Indemnity [id number] 2003 Medicare MEDICARE MEDICAR E A AND B [id number] 2003-Present [phone] [address] [address] [place] [address] Medicare [id number] 1959 Medicare [id number] 1959 Medicare [id number] 1938 Unknown [id number] 3 1938 Unknown [id number] 3 1938 Unknown [id number] 3 1938 Unknown [id number] 3 1938 Unknown [id number] 3 1938 Unknown [id number] 3 1938 Unknown [id number] 3 1938 Unknown [id number] 3 Medicare Medicare Outpatient [id number] Unknown [facility] Insur [id number] Unknown [id number] 1 Social History Date Type Detail Facility Start: 10-24-2009 End: 12-16-2021 Tobacco smoking status NHIS Ex-smoker [facility] End: 03-15-1971 History of tobacco use Current smoker [facility] End: 01-01-1972 History of tobacco use Cigarette Smoker [facility] Start: 10-24-2009 End: 07-28-2022 Cigarettes smoked current (pack per day) - Reported 1.5 [facility] Start: 11-07-2021 End: 12-16-2021 Alcohol intake Current drinker of alcohol (finding) [facility] Start: 1940 Sex Assigned At Not on file C [facility] Start: 10-28-2021 End: 01-08-2022 Exposure to SARS-CoV-2 (event) Not sure [facility] Start: 12-11-2021 End: 12-17-2021 Tobacco smoking status NHIS Never smoked tobacco (finding) [facility] Start: 1940 Sex Assigned At Male F [facility] Start: 12-16-2021 Tobacco use and exposure Smokeless tobacco non-user [facility] Start: 12-16-2021 End: 07-28-2022 Sex Assigned At [facility] [employer] Other National Score (1-10 0), lower number is lower risk 61 [facility] Medical Equipment Procedure Code Equipment [...] to restart Amlodipine. Continue PAUL for now. [employer] Other 12-12-2023 Evaluation note* Encounter Date Diagnosis [...] and inserts to prevent callus formation.Fall precautions. [employer] Other 12-08-2023 Evaluation note* Encounter Date Diagnosis [...] ulcers. Recommend routine foot care w/ Podiatry [employer] Other 11-21-2023 NoteHNO ID: [id number] Author: Leticia Milian APRN.NETWORK SECURITY OFFICER Service: ? Author Type: Nurse Practitioner Type: Progress Notes Filed: 02/02/2023 2:13 PM Note Text: Norberto Washington [address] [place] [id number] HISTORY OF PRESENT ILLNESS: Seen 07/28/22 for [...] see lab Duration: BPH w obs/luts, UTI [facility] AND [facility] SYMPTOMS SCORE. 1. INCOMPLETE EMPTYING [...] only if s (more content not included)... [facility]11-21-2023 Miscellaneous Notes* Addendum Note - Leticia Milian APRN.CNP - 02/02/2023 2:16 PM ESTAddended by: LETICIA MILIAN on: 02/02/2023 02:16 PM Modules accepted: Orders documented in this encounterLouis Stokes Cleveland [facility] Center11-21-2023 History of Present illness Narrative* Leticia Milian APRN.CNP - 02/02/2023 1:40 PM EST Norberto Washington [address] [facility] [address] HISTORY OF PRESENT ILLNESS: Seen 07/28/22 for [...] see lab Duration: BPH w obs/luts, UTI [facility] SYMPTOMS SCORE. 1. INCOMPLETE EMPTYING [...] Making Level: 4 - Moderate Leticia Milian APRN.NETWORK SECURITY OFFICER documented in this encounterLouis Stokes Cleveland Va [facility] Center07-11-2023 Evaluation note* Encounter Date Diagnosis [...] w/ acute infection Requires no additional treatment [employer] Other 07-06-2023 Evaluation note* Encounter Date Diagnosis [...] exercise for 30 minutes, 3-5 times weekly. [employer] Other 05-16-2023 NoteHNO ID: [id number] Author: Leticia Milian APRN.NETWORK SECURITY OFFICER Service: ? Author Type: Nurse Practitioner Type: Progress Notes Filed: 07/30/2022 4:34 PM Note Text: [facility] [address] [facility] [address] HISTORY OF PRESENT ILLNESS: Seen 01/20/22 for [...] 07/20/22=neg UA 07/20/22=leuk esterase 250, wbc 11-25 [facility] SYMPTOMS SCORE. 1. INCOMPLETE EMPTYING [...] obs/luts, AUA, PVR Med (more content not included)...[facility]04-06-2023 Evaluation note* Encounter Date Diagnosis Assessment [...] w/ antibiotics and treatment of urinary retention [employer] Other 03-21-2023 NotePROCEDURE: XR FOOT LT MIN [...] Electronically authenticated by: SAMY TORRES Date: 2022-06-02 15:48[facility]03-21-2023 NotePROCEDURE: XR FOOT LT MIN 3 VIEWS, [...] Electronically authenticated by: SAMY TORRES Date: 2022-06-02 15:48[facility]01-25-2023 Evaluation note* Encounter Date Diagnosis Assessment Notes [...] lesion was treated w/ cryotherapy w/o complications [employer] Other 01-06-2023 Evaluation note* Encounter Date Diagnosis [...] Mar, Hesitancy of micturition (ICD-10 - R39.11) [employer] Other 10-27-2022 History of Present illness Narrative* Zuleika Hackett - 01/08/2022 8:20 AM EDT Norberto Washington [address] [place] [id number] Mr. Washington presents with chief complaints of: Enlarged L testicle. ED 11/07/21: PVR 179 cc, refused a catheter, scheduled to undergo a cystoscopy in [place] but was cancelled due to his urologist [...] epididymitis Hydroceles: None Spermatoceles: None Varicoceles: None [facility] [employer] SYMPTOMS SCORE. Date 01/08/2022 1. [...] complete. Leonard Dugan M.D. documented in this encounterLouis Stokes Cleveland [facility] Center10-05-2022 Hospital Discharge instructions Additional Instructions Continue taking Flomax as prescribed Avoid drinking any fluids several hours before bed Call your urologist tomorrow for a follow-up appointment Return if you are unable to urinate, develop blood in your urine, abdominal pain, feversSumma Health Work Phone: [phone] History of Present illness Narrative* Leonard Dugan MD - 12/16/2021 2:51 PM EDT Norberto Washington [address] [place] [id number] HISTORY OF PRESENT ILLNESS: ED 11/07/21: PVR 179 cc, refused a catheter, scheduled to undergo a cystoscopy in [place] but was cancelled due to his urologist [...] Otherwise, intermittent catheterization. Agreed indwelling catheter 18 lux[place]bourgish. Flomax will not work, no prostate tissue [...] Moderate Leonard Dugan MD documented in this encounterLouis Stokes Cleveland [facility] Medical Center10-03-2022 Miscellaneous Notes* Telephone Encounter - Valente Bell LPN - 12/15/2021 3:58 PM EDT Called and spoke to patient regarding message below. Patient states understanding to information provided. No further action required at this time. * Telephone Encounter - Leticia Milian APRN.CNP - 12/15/2021 10:13 AM EDT Please call and confirm that pt received GRAYL message to start new script sent for antibiotic. Thanks Leticia MONDRAGON documented in this encounterLouis Stokes Cleveland [facility] Center09-29-2022 Miscellaneous Notes* Telephone Encounter - [...] be draining normally now. documented in this encounterLouis Stokes Cleveland [facility] Center09-28-2022 Nurse Note* Stephanie Kaur RN [...] hyperplasia with urinary retention documented in this encounterLouis Stokes Cleveland [facility] Center09-27-2022 History of Present illness Narrative* Leonard Dugan MD - 12/09/2021 5:05 PM EDT [facility] PHYSICIAN INTERPRETATION: [...] contractility Leonard Dugan MD documented in this encounterLouis Stokes Cleveland [facility] Center09-27-2022 Nurse Note* Stephanie Kaur RN - 12/09/2021 3:57 PM EDT [facility] UR[facility]NAM[facility] LAB [...] of incomplete bladder emptying documented in this encounterLouis Stokes Cleveland Va Medical Center09-26-2022 Miscellaneous Notes* Telephone Encounter - Stephanie Kaur RN - 12/08/2021 4:11 PM EDT LM for patient to reschedule catheter change for tomorrow. Last changed 11/26/21 in ED. Will be due for change on 12/23/21. Stephanie Kaur R.N. documented in this encounterLouis Stokes Cleveland Va Medical Center09-12-2022 Miscellaneous Notes* Telephone Encounter - [...] has been busy with his spouse at [facility] having to care for her needs and hadn't called earlier when it first started on Wednesday. He was hoping it would clear up but it has not, urine is between [place] tint & Brown and he does see small clots. 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 Stephanie Kaur RN documented in this encounterLouis Stokes Cleveland Va Medical Center08-31-2022 Procedure note* Leonard Dugan MD - 11/12/2021 11:00 AM EDTProcedure(s): CYSTOSCOPY Pre-Procedure Diagnose(s): BPH with obstruction/lower urinary tract symptoms Post-Procedure Diagnose(s): BPH with obstruction/lower urinary tract symptoms PROCEDURE: CYSTOSCOPY INDICATIONS: ED 11/07/21: PVR 179 cc, refused a catheter, scheduled to undergo a cystoscopy in [place] but was cancelled due to his urologist [...] Otherwise, intermittent catheterization. Agreed indwelling catheter 18 [place]ish. By signing my name below, I, Zuleika [...] complete. Leonard Dugan M.D. documented in this encounterLouis Stokes Cleveland [facility] Center08-29-2022 History of Present illness Narrative* Leonard Dugan MD - 11/10/2021 12:11 PM EDT Cysto with uroflow 11-12-21 ED 11/07/21: PVR 179 cc, refused a catheter, scheduled to undergo a cystoscopy in [place] but was cancelled due to his urologist was sick Pt underwent TURP x2 within a week AUA= 3-5 wach ROSAMARIA 11/10/21 - 10 gm, rubbery, no nodules US 11/07/21:= mildly complex renal cysts UA and culture 11-07-21= -ve May need UDS based on cysto documented in [facility] encounterWood [facility]* Diagnosis BPH with obstruction/lower urinary tract symptoms- Primary Hypertrophy of prostate with urinary obstruction and other lower urinary tract symptoms (LUTS) Benign prostatic hyperplasia with urinary retention documented in this encounter [facility]* Diagnosis Urinary frequency- Primary Urinary urgency Urgency of urination Urinary straining Straining on urination Feeling of incomplete bladder emptying Incomplete bladder emptying documented in this encounter [facility]* Diagnosis Urinary tract infection without hematuria, site unspecified- Primary Feeling of incomplete bladder emptying Incomplete bladder emptying Benign prostatic hyperplasia with urinary retention documented in this encounter [facility] noteNo assessment information availableSumma Health Work Phone: Evaluation note* Diagnosis Retention of urine- Primary Retention of urine, unspecified Flaccid bladder Neurogenic bladder, NOS documented in this encounter [facility]* Diagnosis Chronic epididymitis- Primary Left hydrocele Hydrocele, unspecified Weak urinary stream Slowing of urinary stream BPH without obstruction/lower urinary tract symptoms Hypertrophy of prostate without urinary obstruction and other lower urinary tract symptoms (LUTS) Epididymitis Orchitis and epididymitis, unspecified documented in this encounter [facility] CenterEvaluation noteNo InformationNortSt. Mary [facility] [employer] Other Evaluation note* Diagnosis BPH with obstruction/lower urinary tract symptoms- Primary Hypertrophy of prostate with urinary obstruction and other lower urinary tract symptoms (LUTS) Recurrent UTI Urinary tract infection, site not specified Weak urinary stream Slowing of urinary stream documented in this encounter [facility] CenterHis[facility] Narrative - Reported* Type [...] cystoscopy 09.20.2019 Hospitalization History see surgical history [facility] [employer] Other Reason for referral (narrative)* Outpatient Procedure (Routine) - Pending Review Specialty Diagnoses / Procedures Referred By Marce dillon Referred To Contact [facility] Diagnoses 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 Procedures URODYNAMICS MAGGY POST-VOIDING RESIDUAL URINE&/BLADDER CAP Leonard Dugan MD [address] [place] [address] [place] [address] [place] [address] Referral ID Status Reason Start Date Expiration Date Visits Requested Visits Authorized [id number] Pending Review Auto-Generat ed Referral 11/12/2021 11/12/2022 1 1 [facility] Summary Purpose Family History No [...] toe of right foot (M20.41) Referral Organization [facility] Referring Provider First Name Campbell Referring Provider Last Name Quentin Referring Provider Specialty Internal Me dicine Referred Organization [facility] Referred Provider Jhon Tejada Referred Address [address] [place], [place],[address] Referred Provider Specialty Podiatry - S urgical [...] and content) DATE CREATED AUTHOR 11/04/2021 [facility] DATE CREATED AUTHOR AUTHOR'S ORGANIZ ATION 12/13/2021 [facility] DATE CREATED AUTHOR AUTHOR'S ORGANIZ ATION 06/25/2022 [facility] DATE CREATED AUTHOR AUTHOR'S ORGANRICA ATION 01/14/2023 [facility] DATE CREATED AUTHOR AUTHOR'S ORGANIZ ATION 02/04/2023 [facility] Source Comments (unrecognize d section and content) In the event this informatio n is protected by the Federal Confidentiality of Alcohol and Drug Abuse Patient Records regulations: The Federal rules restrict any use of the information to criminally investigate or prosecute any alcohol or drug abuse patient.[facility] CenterIn the event this information is protected by the Federal Confidentiality of Alcohol and Drug Abuse Patient Records regulations: The Federal rules restrict any use of the information to criminally investigate or prosecute any alcohol or drug abuse patient.[facility] CenterIn the event this information is protected by the Federal Confidentiality of Alcohol and Drug Abuse Patient Records regulations: The Federal rules restrict any use of the information to criminally investigate or prosecute any alcohol or drug abuse patient.[facility] CenterIn the event this information is protected by the Federal Confidentiality of Alcohol and Drug Abuse Patient Records regulations: The Federal rules restrict any use of the information to criminally investigate or prosecute any alcohol or drug abuse patient.[facility] CenterIn the event this information is protected by the Federal Confidentiality of Alcohol and Drug Abuse Patient Records regulations: The Federal rules restrict any use of the information to criminally investigate or prosecute any alcohol or drug abuse patient.[facility] CenterIn the event this information is protected by the Federal Confidentiality of Alcohol and Drug Abuse Patient Records regulations: The Federal rules restrict any use of the information to criminally investigate or prosecute any alcohol or drug abuse patient.[facility] CenterIn the event this information is protected by the Federal Confidentiality of Alcohol and Drug Abuse Patient Records regulations: The Federal rules restrict any use of the information to criminally investigate or prosecute any alcohol or drug abuse patient.[facility] CenterIn the event this information is protected by the Federal Confidentiality of Alcohol and Drug Abuse Patient Records regulations: The Federal rules restrict any use of the information to criminally investigate or prosecute any alcohol or drug abuse patient.[facility] CenterIn the event this information is protected by the Federal Confidentiality of Alcohol and Drug Abuse Patient Records regulations: The Federal rules restrict any use of the information to criminally investigate or prosecute any alcohol or drug abuse patient.[facility] CenterIn the event this information is protected by the Federal Confidentiality of Alcohol and Drug Abuse Patient Records regulations: The Federal rules restrict any use of the information to criminally investigate or prosecute any alcohol or drug abuse patient.[facility] CenterIn the event this information is protected by the Federal Confidentiality of Alcohol and Drug Abuse Patient Records regulations: The Federal rules restrict any use of the information to criminally investigate or prosecute any alcohol or drug abuse patient.[facility] CenterIn the event this information is protected by the Federal Confidentiality of Alcohol and Drug Abuse Patient Records regulations: The Federal rules restrict any use of the information to criminally investigate or prosecute any alcohol or drug abuse patient.[facility] Care Teams (unrecognized sec tion and content) Team Status: Active Member Role Status Dates Campbell Naranjo , Primary Care Provider Active Team Status: Inactive Member Role Status Dates Campbell Naranjo , Primary Care Provider Active Low Carter DO Emergency Provider Active Curtain Cutter Relationship Specialty Start Date End Date Ran Lees Jr. PCP - General 10/10/09 Curtain Cutter Relationship Specialty Start Date End Date Ran Lees Jr. PCP - General 10/10/09 Curtain Cutter Relationship Specialty Start Date End Date Ran Lees Jr. 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 Relationship Specialty Start Date End Date Campbell Naranjo, DO [address] [place] [address] PCP - General Internal Medicine 11/26/21 Curtain Cutter Relationship Specialty Start Date End Date Campbell Naranjo Dakota, DO [address] [place] [address] PCP - General Internal Medicine 11/26/21 Team Status: Inactive Member Role Status Dates Campbell Naranjo DO Primary Care Provider Active Davis Cervantes MD Emergency Provider Active Curtain Cutter Relationship Specialty Start Date End Date Campbell Naranjo, DO [address] [facility] [place] [place] [address] PCP - General Internal Medicine 11/26/21 Team Status: Inactive Member Role Status Dates Campbell Naranjo , Primary Care Provider Active Sam Simons , Emergency Provider Active Team Status: Inactive Member Role Status Dates Campbell Quentin , Primary Care Provider Active Sam Simons , Attending Provider Active Curtain Cutter Relationship Specialty Start Date End Date Campbell Naranjo, DO [address] [facility] [place] [place] [address] PCP - General Internal Medicine 11/26/21 Curtain Cutter Relationship Specialty Start Date End Date Campbell Naranjo, DO [address] [facility] [place] [address] PCP - General Internal Medicine 11/26/21 Curtain Cutter Relationship Specialty Start Date End Date Campbell Naranjo, DO [address] [facility] [place] [address] PCP - General Internal Medicine 11/26/21 Reason for Visit (unrecogniz ed section and content) [facility] d/c 03/09 Reason Comments Cystoscopy-1 Reason [...] BE BASED ON THE PRIMARY CLINICAL RECORDS. [facility] [employer] [facility]. provides no warranty or guarantee of the accuracy or completeness of information in this document.
--- NOTE | 2023-04-12 06:32 | XR_ITS ---
The [address] [address] Patient Name: EMILY WASHINGTON MRN: [id number] date: 1940 Sex: M Assigned Patient Location: ER Current Patient Location: ED.MAIN Accession/Order Number: [id number] Exam Date: 04/12/2023 06:47 Report Date: 04/12/2023 07:13 At the request of: DALLAS BECKER Procedure: XR foot RT min 3V PROCEDURE: XR foot RT min 3V HISTORY: right foot cellulitis w diabetic ulcer COMPARISON: XR foot right 03/08/2023 FINDINGS: BONES:Mild degenerative changes of the first metatarsophalangeal joint, and joints of the midfoot. Small calcaneal plantar spur. SOFT TISSUES:Mild dorsal soft tissue swelling. Atherosclerotic disease. EFFUSION:None visible. OTHER: Negative. XR/XR foot RT min 3V IMPRESSION: 1. Mild dorsal soft tissue swelling; decreased compared to prior study. 2. Mild degenerative changes. No acute bone abnormality. 3. No findings to suggest osteomyelitis. Electronically authenticated by: SUNI FREIRE Date: 04/12/2023 07:13
--- NOTE | 2023-04-12 06:36 | ED.EXTPRO1 ---
HPI - Extremity Problem General Chief complaint: Extremity Problem, Nontraumatic Stated complaint: INFECTION R FOOT Time Seen by Provider: 04/12/23 06:23 Source: patient Mode of arrival: walk-in History of Present Illness HPI Narrative: Patient presents with increased warmth, redness and swelling to the right foot - especially the right middle and 5th toes - that he noticed this morning. The patient has been working with Dr Tejada to care for ulcers of the right 3rd and 5th toes since around [facility]. he said that he had been mostly able to stay out of the ED through the regular office care. He denied any systemic symptoms such as fever or vomiting. He said that the redness now extends from the toes into the foot. Related Data Home Medications Medication Instructions Recorded Confirmed gabapentin 300 mg capsule 300 mg PO TID 03/08/23 04/12/23 glipizide 2.5 mg tablet, extended 2.5 mg PO QAM 03/08/23 04/12/23 release 24 hr lisinopril 20 mg tablet 20 mg PO .qhs 03/08/23 04/12/23 lovastatin 40 mg tablet 40 mg PO .qhs 03/08/23 04/12/23 tamsulosin 0.4 mg capsule 0.4 mg PO Q24H 03/08/23 04/12/23 collagenase clostridium histo. 250 topical 04/12/23 unit/gram topical ointment (Santyl) Previous Rx's Medication Instructions Recorded clindamycin HCl 150 mg capsule 450 mg (3 x 150 mg) PO TID 7 days 04/12/23 #63 caps doxycycline hyclate 100 mg capsule 100 mg PO BID 7 days #14 caps 04/12/23 Allergies Allergy/AdvReac Type Severity Reaction Status Date / Time ciprofloxacin [From Cipro] Allergy Severe Verified 04/12/23 06:23 Sulfa (Sulfonamide Allergy Severe Verified 04/12/23 06:23 Antibiotics) [facility] Medical History (Updated 04/12/23 @ 06:55 by Enrrique Smith) HLD (hyperlipidemia) ?E78.5 - Hyperlipidemia, unspecified (ICD-10) Diabetic infection of right foot ?E11.628 - Type 2 diabetes mellitus with other skin complications (ICD-10) ?L08.9 - Local infection of the skin and subcutaneous tissue, unspecified (ICD-10) Neuropathy ?G62.9 - Polyneuropathy, unspecified (ICD-10) Fracture, ankle ?S82.899A - Other fracture of unspecified lower leg, initial encounter for closed fracture (ICD-10) Benign prostate hyperplasia ?N40.0 - Benign prostatic hyperplasia without lower urinary tract symptoms (ICD-10) Hypertension ?I10 - Essential (primary) hypertension (ICD-10) Diabetes ?E11.9 - Type 2 diabetes mellitus without complications (ICD-10) Surgical History H/O rotator cuff surgery ?Z98.890 - Other specified postprocedural states (ICD-10) History of toe surgery ?Z98.890 - Other specified postprocedural states (ICD-10) History of appendectomy ?Z90.49 - Acquired absence of other specified parts of digestive tract (ICD-10) Hx of tonsillectomy ?Z90.89 - Acquired absence of other organs (ICD-10) Family History Mother Family history of cancer Father Family history of stroke Social History Within the past year, how often did you have a drink containing alcohol: never Score interpretation: A score less than 4 is consistent with normal alcohol consumption. 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 afebrile General: Well-appearing and in no apparent distress. Skin: Warm, dry, no pallor noted. Eye: Pupils are equal, round and EOMI. No scleral icterus. Ears, Nose, Mouth, and Throat: Oral mucosa is moist Cardiovascular: Regular Rate and Rhythm without murmur, gallop or rub. Respiratory: No accessory muscle use or respiratory distress. Lungs are clear to auscultation, no wheezing, rales or rhonchi Musculoskeletal: erythema noted to the distal right foot with some extension into the mid foot. The right 3rd and 5th toes have dry ulcerative changes without weeping or purulent discharge. Right knee, ankle and toes with normal ROM. The right foot is slightly swollen. No calf or popliteal tenderness, no thigh or knee edema/swelling Neurological: A&O x4. No cranial nerve dysfunction observed. No truncal ataxia. Moves all extremities. Sensation intact. Psychiatric: Cooperative and interactive. Normal mood and affect. Constitutional Vital Signs, click to edit/add: Last Vital Signs Temp 98.0 F 04/12/23 06:19 Pulse 77 04/12/23 06:19 Resp 16 04/12/23 06:19 BP 161/78 H 04/12/23 06:19 Pulse Ox 99 04/12/23 06:19 O2 Del Method Room Air 04/12/23 06:19 Course Vital Signs Vital signs: Vital Signs Temperature 98.0 F 04/12/23 06:19 Pulse Rate 77 04/12/23 06:19 Respiratory Rate 16 04/12/23 06:19 Blood Pressure 161/78 H 04/12/23 06:19 Pulse Oximetry 99 04/12/23 06:19 Oxygen Delivery Method Room Air 04/12/23 06:19 Temperature 98.0 F 04/12/23 06:19 Pulse Rate 77 04/12/23 06:19 Respiratory Rate 16 04/12/23 06:19 Blood Pressure 161/78 H 04/12/23 06:19 Pulse Oximetry 99 04/12/23 06:19 Oxygen Delivery Method Room Air 04/12/23 06:19 MDM - Extremity (Nontraumatic) MDM Narrative Medical decision making narrative: Peripheral IV established and blood drawn and sent for testing. The patient was ordered to receive IV ZOsyn and IV Vancomycin. Xrays of the right foot also ordered to be obtained. Patient signed out to Dr Calderon at 7am shift change. he will review the test results and call Dr Tejada to discuss follow up. I e-prescribed Clindamycin and Doxycycline tabs for home use - the patient is allergic to Sulfa drugs. Lab Data Labs: Lab Results 01/29/24 Range/Units 06:30 WBC 9.8 (4.0-11.0) 10^3/uL RBC 4.01 L (4.70-6.10) 10^6/uL Hgb 12.9 L (14.0-18.0) g/dL Hct 37.7 L (42.0-54.0) % MCV 94.0 (80.0-94.0) fL MCH 32.2 (25.9-34.0) pg MCHC 34.2 (29.9-35.2) g/dL RDW 11.4 (11.0-15.0) % Plt Count 257 (150-450) 10^3/uL MPV 8.9 L (9.5-13.5) fL Neut % (Auto) 61.0 (43.0-75.0) % Lymph % (Auto) 22.8 (20.5-60.0) % [place] % (Auto) 12.0 (1.7-12.0) % Eos % (Auto) 2.9 (0.9-7.0) % Baso % (Auto) 0.7 (0.2-2.0) % Neut # (Auto) 6.0 (1.4-6.5) 10^3/uL Lymph # (Auto) 2.2 (1.2-3.8) 10^3/uL [place] # (Auto) 1.2 H (0.3-0.8) 10^3/uL Eos # (Auto) 0.3 (0.0-0.7) 10^3/uL Baso # (Auto) 0.1 (0.0-0.1) 10^3/uL Abs Immat Gran (auto) 0.06 H (0.00-0.03) 10^3/uL Imm/Tot Granulo (auto) 0.6 H (0.0-0.5) % ESR 22 H (<=20) mm/hr Discharge Plan Discharge Chief Complaint: Extremity Problem, Nontraumatic Clinical Impression: Diabetic ulcer of right fifth toe, Cellulitis of foot, right Patient Disposition: Still a Patient Prescriptions / Home Meds: New clindamycin HCl 150 mg capsule 450 mg PO TID 7 Days Qty: 63 0RF Rx Instructions: ICD 10 = L03.115 doxycycline hyclate 100 mg capsule 100 mg PO BID 7 Days Qty: 14 0RF No Action lisinopril 20 mg tablet 20 mg PO .qhs tamsulosin 0.4 mg capsule 0.4 mg PO Q24H glipizide 2.5 mg tablet extended release 24hr 2.5 mg PO QAM gabapentin 300 mg capsule 300 mg PO TID lovastatin 40 mg tablet 40 mg PO .qhs Santyl 250 unit/gram ointment TOPICAL Stand Alone Forms: Portal Instructions Referrals: Campbell Naranjo DO [Primary Care Provider] - 1 week
--- NOTE | 2023-04-12 06:40 | PC.NURSE ---
Pt presents to ER for what he believes is a new infection in his right little toe and middle toe Pt has been being seen and treated for these sores by Dr. Tejada since [place] Pt states he woke up this morning feeling that the right foot is warmer than his left The right foot is swollen as well as his ankle and calf all the way up to the knee The bottom portion of his right foot is red in color Pt states he has been changing dressings on the affected toes 3 times a day with colloid dressing per Dr. Crooks orders Pt states he is not on any antibiotics at this time but he has been during this treatment course IV, lab work, and cultures obtained Pt placed in a gown and given a blanket, denies further needs or questions at this time
[2023-04-12 06:44] LABS: Basophils Absolute Auto 0.1 10^3/uL (0.0-0.1); Basophils Percent Auto 0.7 % (0.2-2.0); Eosinophils Absolute Auto 0.3 10^3/uL (0.0-0.7); Eosinophils Percent Auto 2.9 % (0.9-7.0); Hematocrit 37.7 % (42.0-54.0); Hemoglobin 12.9 g/dL (14.0-18.0); Immature Granulocytes Abs Auto 0.06 10^3/uL (0.00-0.03); Immature Granulocytes Pct Auto 0.6 % (0.0-0.5); Lymphocytes Absolute Auto 2.2 10^3/uL (1.2-3.8); Lymphocytes Percent Auto 22.8 % (20.5-60.0); Mean Corpuscular HGB Conc 34.2 g/dL (29.9-35.2); Mean Corpuscular Hemoglobin 32.2 pg (25.9-34.0); Mean Platelet Volume 8.9 fL (9.5-13.5); Monocytes Absolute Auto 1.2 10^3/uL (0.3-0.8); Platelet Count 257 10^3/uL (150-450); Red Blood Count 4.01 10^6/uL (4.70-6.10); Red Cell Distribution Width 11.4 % (11.0-15.0); White Blood Count 9.8 10^3/uL (4.0-11.0)
[2023-04-12 06:51] LABS: Erythrocyte Sedimentation Rate 22 mm/hr (<=20)
[2023-04-12 07:01] LABS: Alanine Aminotransferase 23 U/L (16-63); Albumin Level 3.4 g/dL (3.4-5.0); Alkaline Phosphatase 54 U/L (46-116); Anion Gap 14.4; Aspartate Amino Transferase 15 U/L (15-37); BUN Creatinine Ratio 13.9; Bilirubin Total 0.4 mg/dL (0.2-1.0); Calcium 8.2 mg/dL (8.5-10.1); Carbon Dioxide 27.2 mmol/L (21.0-32.0); Chloride 100 mmol/L (98-107); Estimated GFR (African America >60 (>=60); Estimated GFR (Non-African Ame >60 (>=60); Globulin 3.4 g/dL; Glucose 159 mg/dL (74-106); Potassium 4.6 mmol/L (3.5-5.1); Sodium 137 mmol/L (136-145); Total Protein 6.8 g/dL (6.4-8.2)
[2023-04-12 07:06] LABS: C Reactive Protein <0.50 mg/dL (<=0.50)
[2023-04-12] MEDS: PIPERACILLIN SODIUM/TAZOBACTAM 4.5 GM in 0.9 % SODIUM CHLORIDE 50 ML IV (07:22)
[2023-04-12] MEDS: VANCOMYCIN HCL 1,000 MG in 0.9 % SODIUM CHLORIDE 250 ML 250 MG IV (07:22)
[2023-04-12 07:31] VITALS: BP 138/75; PULSE 67; RESP 18; O2SAT 97
== END 2023-04-12 08:45 | disposition home or self-care (01) ==
PROVIDERS: Emergency Medicine; Emergency Provider Emergency Medicine; PCP Internal Medicine
DX: E11.628 Type 2 diabetes mellitus with other skin complications (principal); L03.115 Cellulitis of right lower limb; E11.621 Type 2 diabetes mellitus with foot ulcer; L97.519 Non-pressure chronic ulcer of other part of right foot with unspecified severity; Z79.899 Other long term (current) drug therapy; E78.5 Hyperlipidemia, unspecified; I10 Essential (primary) hypertension; N40.0 Benign prostatic hyperplasia without lower urinary tract symptoms; G62.9 Polyneuropathy, unspecified; Z90.49 Acquired absence of other specified parts of digestive tract; Z98.890 Other specified postprocedural states
CPT/HCPCS: 36415; 73630; 80053; 85025; 85652; 86140; 96374; 96375; 99284; J2543; J3370

== ENCOUNTER 2023-04-17 16:25 | Inpatient (IN) | payer MEDICARE, SELFPAY ==
[2023-04-17 16:29] VITALS: BP 156/80; PULSE 92; RESP 18; TEMP 36.8; O2SAT 99; BMI 27.5
--- OUTSIDE RECORDS SUMMARY | 2023-04-17 16:30 | XMS_ITS | CCD ---
Author Name Unknown Address [address] [place] [address] Organization [facility] Care Team Providers Care Coil Tester Name Role Phone Ran Lees Jr. Primary Care Provider Unava ilable RAN LEES JR Primary Care Unavailable KEELY GUTIERREZ Attending Unavailable CAMPBELL NARANJO Primary Care Unavailable Campbell Naranjo DO Primary Care Provider DO Campbell Naranjo Primary Care Provider MD Davis Cervantes Emergency Provider DO Sam Simons Emergency Provider [phone] DO Sam Simons Attending Provider Campbell Naranjo [...] Care Provider DO Low Carter Emergency Provider [phone] Campbell Naranjo Primary Care Unavailable Low Carter [...] [CIPROFLOXACIN] Drug Allergy 08-01-19 10 GI Upset, [facility] (20 sources) Sulfonamides (Antibiotic); Translations: [SULFA (SULFONAMIDE ANTIBIOTICS)] Propensity to adverse reactions 08-01-19 10 Rash, [facility] (1 source) Ciprofloxacin Drug Allergy [facility] (1 source) Sulfonamides (Antibiotic) Drug allergy (disorder) [facility] (1 source) Allergies Reconciled Propensity to adverse reactions Unknown jigl Other (1 source) patient allergy list reviewed by nurse or physicia Propensity to adverse reactions 05-20-19 18 Comment:Done jigl Other (1 source) Ciprofloxacin Drug Allergy 12-12-[address] [facility] Repository (1 source) Sulfonamides (Antibiotic) Drug allergy (disorder) 12-12-[address] [facility] Medications Current Medications Medication Drug Class(es) Dates Sig (Normalized) Sig (Original) amoxicillin 875 mg / clavulanate 125 mg oral tablet (6 sources) Penicillin-class Antibacterial Start: 02-19-2023 take 1 [...] twice daily. Take 1 capsule by mo ut three times daily for 3 days. Start evening prior procedure diclofenac 18 mg oral capsule (17 sources) Nonsteroidal Anti-inflammatory Drug take 1 capsule by mouth three times daily econazole nitrate 10 mg/ml topical cream (17 sources) Azole Antifungal glipiZIDE er 2.5 mg [...] mouth once daily. Glucosamine 1500 Complex - (17 sources) Glucosamine 1500 Complex - as directed [...] one(1) tablet d aily. MSM 1500 MG (17 sources) MSM 1500 MG as d irected Orally Active Multi For Him - (2 sources) Multi For Him - as directed Orally [...] oral capsule (20 sources) alpha-Adrenergic Radha Start: 12-18-19 take 0.4 mg by mouth twice daily Tamsulosin Active 0.4 MG PO Twice daily December 17, 2021 12:00am Start: 12-16-2021 End: 01-28-2024 take 1 capsule by mouth once daily, then take 1 capsule by mouth once daily tamsulosin (FLOMAX) 0.4 mg Take 1 capsule by mouth once daily. Take one cap. daily 90 capsule 3 02/02/2023 01/28/2024 Active Comment on above: Take 1 capsule by [facility] once daily. Take one cap. daily trimethoprim 100 mg oral tablet (5 sources) Dihydrofolate Reductase Inhibitor Antibacterial Start: 2 End: 2 take 100 mg by mouth twice daily Trimethoprim Active 100 MG PO Twice daily December 17, 2021 12:00am Comment on above: Take 1 tablet by marisela th twice daily for 5 days. Turmeric-Yulisa 150-25 MG (2 sources) Turmeric-Yulisa 150-25 MG as directed Orally Active Completed/Discontinued Medications Medication Drug Class(es) Dates Sig (Normalized) Sig (Original) 8 hr acetaminophen 650 mg extended release oral tablet (17 sources) take 1 tablet by mouth every four hours as needed Acetaminophen ER 650 MG 1 tablet Orally every 4 hours as needed Not-Taking/PRN take 1 tablet by marisela th every [...] 12/11/2021 Active take 1 tablet by marisela th every twenty-four hours Aspirin 81 MG 1 tablet Orally Once a day for 30 day(s) Active Comment on above: Aspirin Active 81 MG PO Daily December 11, 2021 12:00am azithromycin 250 mg oral tablet (9 sources) Macrolide Antimicrobial Start: 09-22-2022 Azithromycin 250 MG as directed Orally daily for 5 days Sep, Not-Taking/PRN betamethasone 0.5 mg/ml / clotrimazole 10 mg/ml topical cream (17 sources) Azole Antifungal, Corticosteroid Clotrimazole-Betamet has one [...] Date Documented Date Episodic/Chronic Acquired foot deformities (19 sources) Hammer toe; Translations: [Other hammer toe(s) (acquired), left foot] Chronic Acquired foot deformities (8 sources) Hammer toe; Translations: [Other hammer toe(s) (acquired), right foot] Chronic Acquired foot deformities (17 sources) Acquired cavovarus deformity of left foot; [...] sources) H/O: high risk medication; 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] Episodic Other aftercare (1 source) Long-term current use of drug therapy; Translations: [Other assisted (current) drug therapy] Episodic Other circulatory disease (1 source) Elevated blood-pressure reading, without diagnosis of hypertension; Translations: [Elevated blood pressure reading without diagnosis of hypertension] Onset: 11-26-2021 Episodic Other circulatory disease (16 sources) Carotid bruit; Translations: [Other specified symptoms [...] 08-28-2019 Episodic Other aftercare (1 source) Other assisted (current) drug therapy; Translations: [OTH BOX LIDDER CURRENT DRUG THERAPY] Onset: 10-22-2021 Episodic Other [...] Test Name Value Interpretation Reference Range Facility CNOV 02-02-2023 CNOV Office Visit (UROLLN ) NORBERTO WASHINGTON ([id number]) 1940 M Date Time Provider Department 02/02/23 1:30 PM LETICIA MILIAN UROLLN During your visit today, we recorded the following information about you: Pulse Blood pressure Weight 65/minute 146/70 102.1 kg Leticia Milian, CALCIMINER.FIELD AUTO APPRAISER 02/02/2023 2:13 PM Signed Norberto Washington [address] [facility] [address] HISTORY OF PRESENT ILLNESS: Seen 07/28/22 for [...] see lab Duration: BPH w obs/luts, UTI [employer] SYMPTOMS SCORE. 1. INCOMPLETE EMPTYING [...] Stream (imp (more content not included)... Normal [facility] Bacteria Ur Culton 3 Bacteria identified Cx Nom (U) CULTURE, URINE: No growth (<1,000 CFU/ml) Normal [facility] Comment on above: Performed By: #### 6 30-4 #### [facility] CLIA [id number] [address] [place] [address] STATES OF [facility] CNOVon 07-28-2022 CNOV Office Visit (UROLLN ) NORBERTO WASHINGTON ([id number]) 1940 M Date Time Provider Department 07/28/22 1:30 PM LETICIA MILIAN During your visit today, we recorded the following information about you: Pulse Blood pressure Weight 68/minute 142/55 100.7 kg Leticia Milian APRN.[facility] 07/30/2022 4:34 PM Addendum Norberto Washington [address] [facility] [address] HISTORY OF PRESENT ILLNESS: Seen 01/20/22 for [...] 07/20/22=neg UA 07/20/22=leuk esterase 250, wbc 11-25 [employer] SYMPTOMS SCORE. 1. INCOMPLETE EMPTYING [...] -DM UTI (more content not included)... Normal [facility] Bacteria Ur Culton 3 Bacteria identified Cx Nom (U) CULTURE, URINE: No growth (<1,000 CFU/ml) Normal [facility] Comment on above: Performed By: #### 6 30-4 #### [facility] CLIA [id number] [address] [place] [address] [place] Urinalysis complete panel (U )on 07-20-2022 Bilirubin Ql (U) Negative Normal Negative [facility] Comment on above: Order Comment: Speci men Type: URINE SPECIMEN Ordering Facility: [facility] Address: [address] [address] Performed By: #### 2 4356-8 #### [facility] CLIA [id number] [facility] [place] [address] [place] Clarity (Unsp spec) Clear Normal Clear [facility] Comment on above: Order Comment: Speci men Type: URINE SPECIMEN Ordering Facility: [facility] Address: [address] [address] Performed By: #### 2 4356-8 #### [facility] CLIA [id number] [address] [place] [address] [place] Color (U) Yellow Normal Yellow [facility] Comment on above: Order Comment: Speci men Type: URINE SPECIMEN Ordering Facility: [facility] Address: [address] [address] Performed By: #### 2 4356-8 #### [facility] CLIA [id number] [address] [place] [address] [place] Epithelial cells LM.HPF (Urine sed) [#/Area] Few Normal [facility] Comment on above: Order Comment: Speci men Type: URINE SPECIMEN Ordering Facility: [facility] Address: [address] [place] [address] Performed By: #### 2 4356-8 #### [facility] CLIA [id number] [address] [place] [address] [place] Glucose Test strip (U) [Mass/Vol] Negative Normal Trace, Negative [facility] Comment on above: Order Comment: Speci men Type: URINE SPECIMEN Ordering Facility: [facility] Address: [address] [place] [address] Performed By: #### 2 4356-8 #### [facility] CLIA [id number] [address] [place] [address] [place] Hemoglobin Ql (U) Negative Normal Negative, Trace [facility] Comment on above: Order Comment: Speci men Type: URINE SPECIMEN Ordering Facility: [facility] Address: [address] Performed By: #### 2 4356-8 #### [facility] CLIA [id number] [address] [place] [address] [place] Ketones Ql (U) Negative Normal Trace, Negative [facility] Comment on above: Order Comment: Speci men Type: URINE SPECIMEN Ordering Facility: [facility] Address: [address] Performed By: #### 2 4356-8 #### [facility] CLIA [id number] [address] [place] Leukocyte esterase Test strip Ql (U) 250 Ayaz/uL Abnormal Negative, 25 Ayaz/uL [facility] Comment on above: Order Comment: Speci men Type: URINE SPECIMEN Ordering Facility: [facility] Address: [address] [address] Performed By: #### 2 4356-8 #### [facility] CLIA [id number] [address] [place] [address] [place] Nitrite Ql (U) Negative Normal Negative [facility] Comment on above: Order Comment: Speci men Type: URINE SPECIMEN Ordering Facility: [facility] Address: [address] [place] [address] Performed By: #### 2 4356-8 #### [facility] CLIA [id number] [address] [place] [address] [place] pH (U) 5.5 [pH] Normal 5.0-8.0 [facility] Comment on above: Order Comment: Speci men Type: URINE SPECIMEN Ordering Facility: [facility] Address: [address] [place] [address] Performed By: #### 2 4356-8 #### [facility] CLIA [id number] [address] [place] [address] [place] Protein (U) [Mass/Vol] Negative Normal Trace , Negative [facility] Comment on above: Order Comment: Speci men Type: URINE SPECIMEN Ordering Facility: [facility] Address: [address] [place], [place] [address] Performed By: #### 2 4356-8 #### [facility] CLIA [id number] [address] [place] [address] [place] RBC LM.HPF (Urine sed) [#/Area] 0-3 /HPF Normal 0-3 /HPF [facility] Comment on above: Order Comment: Speci men Type: URINE SPECIMEN Ordering Facility: [facility] Address: [address] [place] [address] Performed By: #### 2 4356-8 #### [facility] CLIA [id number] [address] [place] [address] [place] Specific gravity (U) [Rel density] 1.016 Normal 1.005-1.030 [facility] Comment on above: Order Comment: Speci men Type: URINE SPECIMEN Ordering Facility: [facility] Address: [address] [place] [address] Performed By: #### 2 4356-8 #### [facility] CLIA [id number] [address] [place] [address] [place] Urobilinogen Ql (U) Negative Normal Negative [facility] Comment on above: Order Comment: Speci men Type: URINE SPECIMEN Ordering Facility: [facility] Address: [address] [place] [address] Performed By: #### 2 4356-8 #### [facility] CLIA [id number] [address] [place] [address] [place] WBC LM.HPF (Urine sed) [#/Area] 11-25 /HPF Abnormal 0-5 /HPF [facility] Comment on above: Order Comment: Speci men Type: URINE SPECIMEN Ordering Facility: [facility] Address: [address] [place] [address] Performed By: #### 2 4356-8 #### [facility] CLIA [id number] [address] [place] [address] [place] GLYCOHEMOGLOBIN A1Con 2022 ADA RECOMMENDATION SEE BELOW Normal [facility] Comment on above: Result Comment: ADA RECOMMENDED LIMIT 4.0 - 6.0 ADA THERAPEUTIC TARGET < 7.0 ACTION SUGGESTED > 7.0 Performed By: #### A 1C #### [facility] [address] [address] [address] Juan Pablo Kaminski Glucose [Mass/Vol] 128 mg/dL Normal [facility] Comment on above: Performed By: #### A 1C #### [facility] [address] [address] [address] Juan Pablo Kaminski HbA1c (Bld) [Mass fraction] 6.1 % Normal 4.5-6.2 [facility] Comment on above: Performed By: #### A 1C #### [facility] [address] [place] [address] Dr. Juan Pablo Kaminski A1C with Estimated Average G luon 03-20-2022 A1C with Estimated Average Glu 128 Located Within [facility] Other A1C with Estimated Average Glu Located [facility] Other HbA1c (Bld) [Mass fraction] 6.1 % Normal 4.5-6.2 [facility] Other Comment on above: Performed By: #### A 1C #### [facility] [address] [place] [address] Dr. Juan Pablo Kaminski GLYCOHEMOGLOBIN A1Con 2022 ADA RECOMMENDATION SEE BELOW Normal [facility] Comment on above: Result Comment: ADA RECOMMENDED LIMIT 4.0 - 6.0 ADA THERAPEUTIC TARGET < 7.0 ACTION SUGGESTED > 7.0 Performed By: #### A 1C #### [facility] [address] [place] [address] Dr. Juan Pablo Kaminski Glucose [Mass/Vol] 128 mg/dL Normal [facility] Comment on above: Performed By: #### A 1C #### [facility] [address] [place] [address] Dr. Juan Pablo Kaminski US SCROTUM W [...] by: LEIDY PEREIRA Date: 2021-12-25 18:32 Normal [facility] Urine culture routineOrdered By: Sam Simons on 12-19-2021 Bacteria identified Cx Nom (U) Pseudomonas aeruginosa [facility] Automated erythrocytes count in urine sediment (number/area)Ordered By: Sam Simons on 12-17-2021 RBC Auto (Urine sed) [#/Area] 1-2 [HPF] 0-[address] [facility] Automated leukocytes count i n urine sediment (number/area)Ordered By: Sam Simons on 12-17-2021 WBC Auto (Urine sed) [#/Area] 20-49 [HPF] 0-[address] [facility] Bilirubin Test strip Ql (U)O rdered By: Sam Simons on 12-17-2021 Bilirubin Ql (U) Negative Negative [facility] Color Auto (U)Ordered By: Micheal Simons on 12-17-2021 Color (U) Yellow Yellow [facility] Ketones Auto test strip (U) [Mass/Vol]Ordered By: Sam Simons on 12-17-2021 Ketones (U) [Mass/Vol] Negative Negative [facility] - UrinalysisOrder ed By: Sam Simons on 12-17-2021 Hyaline casts LM Ql (Urine sed) 0-8 [LPF] 0-[address] [facility] Nitrite Test strip Ql (U)Ord ered By: Sam Simons on 12-17-2021 Nitrite Ql (U) Negative Negative [facility] Protein Auto test strip (U) [Mass/Vol]Ordered By: Sam Simons on 12-17-2021 Protein (U) [Mass/Vol] Negative Negative [facility] Specific gravity Auto test s trip (U) [Rel density]Ordered By: Sam Simons on 12-17-2021 Specific gravity (U) [Rel density] 1.016 1.001-1.[address] [facility] Squamous epithelial cells de tection in urine sediment by light microscopyOrdered By: Sam Simons on 12-17-2021 Epithelial cells.squamous LM Ql (Urine sed) 0-1 [HPF] 0-[address] [facility] Urine bacteria detection by automated methodOrdered By: Sam Simons on 12-17-2021 Bacteria Auto Ql (U) None seen None Seen [facility] Urine clarity by refractomet ry automatedOrdered By: Sam Simons on 12-17-2021 Clarity Refractometry automated (U) Clear Clear [facility] Urine glucose measurement by automated test strip (mass/volume)Ordered By: Sam Simons on 12-17-2021 Glucose Auto test strip (U) [Mass/Vol] Normal mg/dL Normal [facility] Urine hemoglobin detection b y automated test stripOrdered By: Sam Simons on 12-17-2021 Hemoglobin Auto test strip Ql (U) Negative Negative [facility] Urine leukocyte esterase det ection by automated test stripOrdered By: Sam Simons on 12-17-2021 Leukocyte esterase Auto test strip Ql (U) 4+ Negative [facility] Urobilinogen Auto test strip (U) [Mass/Vol]Ordered By: Sma Simons on 12-17-2021 Urobilinogen (U) [Mass/Vol] Normal mg/dL Normal [facility] pH Auto test strip (U)Ordere d By: Sam Simons on 12-17-2021 pH (U) 6.0 [pH] 5.0-9.[address] [facility] Urine culture routineOrdered By: Davis Cervantes on 12-13-2021 Bacteria identified Cx Nom (U) No Growth [address] [facility] Automated erythrocytes count in urine sediment (number/area)Ordered By: Davis Cervantes on 12-11-2021 RBC Auto (Urine sed) [#/Area] 20-49 [HPF] 0-[address] [facility] Automated leukocytes count i n urine sediment (number/area)Ordered By: Davis Cervantes on 12-11-2021 WBC Auto (Urine sed) [#/Area] 10-19 [HPF] 0-[address] [facility] Basophils Auto (Bld) [#/Vol] Ordered By: Davis Cervantes on 12-11-2021 Basophils (Bld) [#/Vol] 0.1 10*3/uL 0.0-0.[address] [facility] Basophils/100 WBC Auto (Bld) Ordered By: Davis Cervantes on 12-11-2021 Basophils/100 WBC (Bld) 1.2 % . [facility] Bilirubin Test strip Ql (U)O rdered By: Davis Cervantes on 12-11-2021 Bilirubin Ql (U) Negative Negative [facility] Blood hemoglobin measurement (mass/volume)Ordered By: Davis Cervantes on 12-11-2021 Hemoglobin (Bld) [Mass/Vol] 13.3 g/dL 13.0-17.[address] [facility] Blood leukocytes automated c ount (number/volume)Ordered By: Davis Cervantes on 12-11-2021 WBC (Bld) [#/Vol] 8.2 10*3/uL 4.5-11.0 [facility] Color Auto (U)Ordered By: Mary Cervantes on 12-11-2021 Color (U) Yellow Yellow [facility] Creatinine and Glomerular fi ltration rate.predicted panel (S/P/Bld)Ordered By: Davis Cervantes on 12-11-2021 Creatinine [Mass/Vol] 1.16 mg/dL 0.64-1.27 [facility] Eosinophils Auto (Bld) [#/Vo l]Ordered By: Davis Cervantes on 12-11-2021 Eosinophils (Bld) [#/Vol] 0.2 10*3/uL 0.0-0.[address] [facility] Eosinophils/100 WBC Auto (Bl d)Ordered By: Davis Cervantes on 12-11-2021 Eosinophils/100 WBC (Bld) 2.9 % . [facility] Erythrocyte distribution wid th Auto (RBC) [Ratio]Ordered By: Davis Cervantes on 12-11-2021 Erythrocyte distribution width (RBC) [Ratio] 11.8 % 12.0-14.[address] [facility] Estimated glomerular filtrat ion rate (GFR) non- AmericanOrdered By: Davis Cervantes on 12-11-2021 GFR/1.73 sq M.predicted among non-blacks MDRD (S/P/Bld) [Vol rate/Area] 60 mL/Min [facility] Hematocrit Auto (Bld) [Volum e fraction]Ordered By: Davis Cervantes on 12-11-2021 Hematocrit (Bld) [Volume fraction] 39.6 % 38.8-50.[address] [facility] Ketones Auto test strip (U) [Mass/Vol]Ordered By: Davis Cervantes on 12-11-2021 Ketones (U) [Mass/Vol] Negative Negative [facility] - Hematology and Cell countsOrdered By: Davis Cervantes on 12-11-2021 Nucleated RBC/100 WBC (Bld) [Ratio] 0.0 % 0-0.[address] [facility] - UrinalysisOrder ed By: Davis Cervantes on 12-11-2021 Hyaline casts LM Ql (Urine sed) 0-8 [LPF] 0-[address] [facility] Lymphocytes Auto (Bld) [#/Vo l]Ordered By: Davis Cervantes on 12-11-2021 Lymphocytes (Bld) [#/Vol] 1.9 10*3/uL 1.00-4.[address] [facility] Lymphocytes/100 WBC Auto (Bl d)Ordered By: Davis Cervantes on 12-11-2021 Lymphocytes/100 WBC (Bld) 23.3 % . [facility] MCH Auto (RBC) [Entitic mass ]Ordered By: Davis Cervantes on 12-11-2021 MCH (RBC) [Entitic mass] 32.0 pg 27.5-35.[address] [facility] MCHC Auto (RBC) [Mass/Vol]Or dered By: Davis Cervantes on 12-11-2021 MCHC (RBC) [Mass/Vol] 33.6 g/dL 32.5-35.6 [facility] MCV Auto (RBC) [Entitic vol] Ordered By: Davis Cervantes on 12-11-2021 MCV (RBC) [Entitic vol] 95.1 fL 83.5-[address] [facility] Monocytes Auto (Bld) [#/Vol] Ordered By: Davis Cervantes on 12-11-2021 Monocytes (Bld) [#/Vol] 1.1 10*3/uL 0.0-0.[address] [facility] Monocytes/100 WBC Auto (Bld) Ordered By: Davis Cervantes on 12-11-2021 Monocytes/100 WBC (Bld) 13.6 % . [facility] Neutrophils Auto (Bld) [#/Vo l]Ordered By: Davis Cervantes on 12-11-2021 Neutrophils (Bld) [#/Vol] 4.8 10*3/uL 1.8-7.[address] [facility] Neutrophils/100 WBC Auto (Bl d)Ordered By: Davis Cervantes on 12-11-2021 Neutrophils/100 WBC (Bld) 59.0 % . [facility] Nitrite Test strip Ql (U)Ord ered By: Davis Cervantes on 12-11-2021 Nitrite Ql (U) Negative Negative [facility] No Panel InformationOrdered By: Davis Cervantes on 12-11-2021 Estimated GFR () > 60 mL/Min [facility] Comment on above: GFR estimated refere nce range: According to KDOQI guidelines, <60 ml/min/1.73m2 is sufficient to diagnose a patient with chronic kidney disease. Pharmacy Creatinine Clearance (Chem 57.[address] [facility] Platelet mean volume Auto (B ld) [Entitic vol]Ordered By: Davis Cervantes on 12-11-2021 Platelet mean volume (Bld) [Entitic vol] 7.0 fL 6.6-10.[address] [facility] Platelets Auto (Bld) [#/Vol] Ordered By: Davis Cervantes on 12-11-2021 Platelets (Bld) [#/Vol] 266 10*3/uL 150-[address] [facility] Protein Auto test strip (U) [Mass/Vol]Ordered By: Davis Cervantes on 12-11-2021 Protein (U) [Mass/Vol] Negative Negative [facility] RBC Auto (Bld) [#/Vol]Ordere d By: Davis Cervantes on 12-11-2021 RBC (Bld) [#/Vol] 4.17 10*6/uL 3.90-5.60 [facility] Serum or plasma anion gap de terminationOrdered By: Davis Cervantes on 12-11-2021 Anion gap [Moles/Vol] 12.2 mmol/L 6.0-15.0 [facility] Serum or plasma calcium maggy urement (mass/volume)Ordered By: Davis Cervantes on 12-11-2021 Calcium [Mass/Vol] 9.0 mg/dL 8.2-10.2 [facility] Serum or plasma chloride duran surement (moles/volume)Ordered By: Davis Cervantes on 12-11-2021 Chloride [Moles/Vol] 96 mmol/L 95-114 [facility] Serum or plasma glucose maggy urement (mass/volume)Ordered By: Davis Cervantes on 12-11-2021 Glucose [Mass/Vol] 131 mg/dL 70-100 [facility] Comment on above: ADA recommended refe rence rangeRandom Glucose Reference Range is dependent on time and content of last meal. Glucose of more than 200 mg/dL in a nonstressed, ambulatory subject supports the diagnosis of Diabetes Mellitus. Serum or plasma potassium me asurement (moles/volume)Ordered By: Davis Cervantes on 12-11-2021 Potassium [Moles/Vol] 4.5 mmol/L 3.5-5.1 [facility] Serum or plasma sodium measu rement (moles/volume)Ordered By: Davis Cervantes on 12-11-2021 Sodium [Moles/Vol] 131 mmol/L 136-146 [facility] Serum or plasma total carbon dioxide measurement (moles/volume)Ordered By: Davis Cervantes on 12-11-2021 CO2 [Moles/Vol] 27.3 mmol/L 22.0-30.0 [facility] Serum or plasma urea nitroge n measurement (mass/volume)Ordered By: Davis Cervantes on 12-11-2021 Urea nitrogen [Mass/Vol] 20 mg/dL 9-[address] [facility] Specific gravity Auto test s trip (U) [Rel density]Ordered By: Davis Cervantes on 12-11-2021 Specific gravity (U) [Rel density] 1.014 1.001-1.[address] [facility] Squamous epithelial cells de tection in urine sediment by light microscopyOrdered By: Davis Cervantes on 12-11-2021 Epithelial cells.squamous LM Ql (Urine sed) 0-1 [HPF] 0-[address] [facility] Urine bacteria detection by automated methodOrdered By: Davis Cervantes on 12-11-2021 Bacteria Auto Ql (U) None seen None Seen [facility] Urine clarity by refractomet ry automatedOrdered By: Davis Cervantes on 12-11-2021 Clarity Refractometry automated (U) Clear Clear [facility] Urine glucose measurement by automated test strip (mass/volume)Ordered By: Davis Cervantes on 12-11-2021 Glucose Auto test strip (U) [Mass/Vol] Normal mg/dL Normal [facility] Urine hemoglobin detection b y automated test stripOrdered By: Davis Cervantes on 12-11-2021 Hemoglobin Auto test strip Ql (U) 2+ Negative [facility] Urine leukocyte esterase det ection by automated test stripOrdered By: Davis Cervantes on 12-11-2021 Leukocyte esterase Auto test strip Ql (U) 2+ Negative [facility] Urobilinogen Auto test strip (U) [Mass/Vol]Ordered By: Davis Cervantes on 12-11-2021 Urobilinogen (U) [Mass/Vol] Normal mg/dL Normal [facility] pH Auto test strip (U)Ordere d By: Davis Cervantes on 12-11-2021 pH (U) 5.5 [pH] 5.0-9.[address] [facility] ED NOTEon 11-27-2021 ED NOTE HNO ID: [id number] Author: Alyx Vergara, RN Service: Nursing Author Type: Registered Nurse Type: ED Notes Filed: 11/26/2021 10:21 PM Note Text: Discharge instructions and follow up appointments reviewed. Pt verbalized understanding and states no concerns or questions at this time. VSS. Spoke with Asha about elevated BP. Stated that it's okay for pt to go and have him f/u with his PCP. Normal [facility] ED NOTE HNO ID: [id number] Author: Alyx Vergara RN Service: Nursing Author Type: Registered Nurse Type: ED Notes Filed: 11/26/2021 10:10 PM Note Text: Replaced hamilton bag with leg bag. Normal [facility] Bacteria Ur Culton 2 Bacteria identified Cx Nom (U) [id number] Abnormal [facility] Comment on above: Order Comment: Speci men Type: URINE SPECIMEN Ordering Facility: [facility] Address: [address] [place] [address] Result Comment: >=10 0,000 CFU/ml Klebsiella oxytoca Performed By: #### 6 30-4, 95982-4 #### [facility] CLIA [id number] [address] [place] [address] [place] Bacterial susceptibility maldonado el (Isol)on 11-26-2021 Ampicillin [Susc] Resistant [facility] Comment on above: Order Comment: Order ing Facility: [facility] Address: [address] [place] [address] Performed By: #### 6 30-4, 55099-1 #### [facility] CLIA [id number] [address] [place] [address] [place] Ampicillin+Sulbactam [Susc] 4 Susceptible Susceptible <=8 , Intermediate >8 , Resistant >16 [facility] Comment on above: Order Comment: Order ing Facility: [facility] Address: [address] [place] [address] Performed By: #### 6 30-4, 89548-2 #### [facility] CLIA [id number] [address] [place] [address] [place] ceFAZolin [Susc] <=4 Susceptible Susceptible 0-16 , Intermediate <0 or >16 , Resistant >16 [facility] Comment on above: Order Comment: Order ing Facility: [facility] Address: [address] [place], [place] [address] Performed By: #### 6 30-4, 44905-1 #### [facility] CLIA [id number] [address] [place] [address] Cefepime [Susc] <=1 Susceptible Susceptible <=2 , Intermediate >2 , Resistant >=16 [facility] Comment on above: Order Comment: Order ing Facility: [facility] Address: [address] [place] [address] Performed By: #### 6 30-4, 23754-9 #### [facility] CLIA [id number] [address] [place] [address] cefTRIAXone [Susc] <=1 Susceptible Susceptib le <=1 , Intermediate >1 , Resistant >=4 [facility] Comment on above: Order Comment: Order ing Facility: [facility] Address: [address] [place], [place] [address] Performed By: #### 6 30-4, 37792-3 #### [facility] CLIA [id number] [address] [place] [address] Ciprofloxacin [Susc] <=0.25 Susceptible Suscept ible <0.5 , Intermediate >=.5 , Resistant >=1 [facility] Comment on above: Order Comment: Order ing Facility: [facility] Address: [address] [place], [place] [address] Performed By: #### 6 30-4, 37007-3 #### [facility] CLIA [id number] [address] [place] [address] [place] Ertapenem ROCIO [Susc] <=0.5 Susceptible Suscept ible <=0.5 , Intermediate >.5 , Resistant >1 [facility] Comment on above: Order Comment: Order ing Facility: [facility] Address: [address] Performed By: #### 6 30-4, 56713-8 #### [facility] CLIA [id number] [address] [place] [address] [place] Gentamicin [Susc] <=1 Susceptible Susceptibl e <=4 , Intermediate >4 , Resistant >8 [facility] Comment on above: Order Comment: Order ing Facility: [facility] Address: [address] [place], [place] [address] Performed By: #### 6 30-4, 00207-5 #### [facility] CLIA [id number] [address] [place] [address] Meropenem [Susc] <=0.25 Susceptible Susceptible <=1 , Intermediate >1 , Resistant >2 [facility] Comment on above: Order Comment: Order ing Facility: [facility] Address: [address] [place], [place] [address] Performed By: #### 6 30-4, 70264-9 #### [facility] CLIA [id number] [address] [place] [address] [place] Nitrofurantoin [Susc] 32 Susceptible Suscep tible <=32 , Intermediate >32 , Resistant >64 [facility] Comment on above: Order Comment: Order ing Facility: [facility] Address: [address] Performed By: #### 6 30-4, 99400-2 #### [facility] CLIA [id number] [address] [place] [address] [place] Piperacillin+Sulbactam ROCIO [Susc] <=4 Susceptible Susceptible <=16 , Intermediate >16 , Resistant >64 [facility] Comment on above: Order Comment: Order ing Facility: [facility] Address: [address] Performed By: #### 6 30-4, 89309-4 #### [facility] CLIA [id number] [address] [place] [address] Tobramycin [Susc] <=1 Susceptible Susceptibl e <=4 , Intermediate >4 , Resistant >8 [facility] Comment on above: Order Comment: Order ing Facility: [facility] Address: [address] [place] [address] Performed By: #### 6 30-4, 43546-4 #### [facility] CLIA [id number] [address] [place] [address] Trimethoprim+Sulfameth oxazole [Susc] <=20 Susceptible Susceptible <=40 , Resistant >40 [facility] Comment on above: Order Comment: Order ing Facility: [facility] Address: [address] [place] [address] Performed By: #### 6 30-4, 15380-7 #### [facility] CLIA [id number] [address] [place] [address] ED NOTEon 11-26-2021 ED NOTE HNO ID: [id number] Author: Alyx Vergara RN Service: Nursing Author Type: Registered Nurse Type: ED Notes Filed: 11/26/2021 9:20 PM Note Text: Replaced hamilton per Asha BARR. [facility] ED NOTE HNO ID: [id number] Author: Alyx Vergara RN Service: Nursing Author Type: Registered Nurse Type: ED Notes Filed: 11/26/2021 9:01 PM Note Text: Was instructed to bladder scan pt due to pt having no urine in replaced bag. Bladder scanned 261 mL's the first time. Then 214 mL's the second time. Made Asha ESQUIVEL) aware. [facility] ED NOTE HNO ID: [id number] Author: Alyx Vergara RN Service: Nursing Author Type: Registered Nurse Type: ED Notes Filed: 11/26/2021 9:49 PM Note Text: Flushed 20 mL Hamilton. No leaking noted around tube. [facility] ED PROV NOTEon 11-26-2021 ED PROV NOTE HNO ID: [id number] Author: Asha Clinton PA-C Service: ? Author Type: Physician Stake Driver Type: ED Provider Notes Filed: 11/26/2021 10:26 [...] / Clinical Impression Clinical Impressions as of 11/26/21 2225 Acute cystitis with hematuria Urinary retention Elevated [...] culture. Previous and only urine culture in [facility] on 11/07 had no growth. Given dose of Keflex. Prescription for this E scripted to pharmacy. Patient discharged with Hamilton in place, leg bag instructions. Elevated blood pressure noted and improved during stay. No CP, sob, dizziness or any other complaints. Recommend f/u with pcp for recheck. All questions and concerns addre (more content not included)... Normal [facility] Urinalysis complete panel (U )on 11-26-2021 Bacteria LM.HPF (Urine sed) [#/Area] Many Abnormal None Seen [facility] Comment on above: Order Comment: Speci men Type: URINE SPECIMEN Ordering Facility: [facility] Address: [address] [place] [address] Performed By: #### 6 30-4, 47670-1 #### [facility] CLIA [id number] [address] [place] [address] [place] Bilirubin Ql (U) Negative Normal Negative [facility] Comment on above: Order Comment: Speci men Type: URINE SPECIMEN Ordering Facility: [facility] Address: [address] [place] [address] Performed By: #### 6 30-4, 18381-7 #### [facility] CLIA [id number] [address] [place] [address] [place] Clarity (Unsp spec) Cloudy Abnormal Clear [facility] Comment on above: Order Comment: Speci men Type: URINE SPECIMEN Ordering Facility: [facility] Address: [address] [place] [address] Performed By: #### 6 30-4, 07693-7 #### [facility] CLIA [id number] [address] [place] [address] [place] Color (U) Yellow Normal Yellow [facility] Comment on above: Order Comment: Speci men Type: URINE SPECIMEN Ordering Facility: [facility] Address: [address] [place] [address] Performed By: #### 6 30-4, 32993-1 #### [facility] CLIA [id number] [address] [place] [address] [place] Epithelial cells LM.HPF (Urine sed) [#/Area] Few Normal [facility] Comment on above: Order Comment: Speci men Type: URINE SPECIMEN Ordering Facility: [facility] Address: [address] [place], [place] [address] Performed By: #### 6 30-4, 83563-2 #### [facility] CLIA [id number] [address] [place] [address] [place] Glucose Test strip (U) [Mass/Vol] Negative Normal Negative [facility] Comment on above: Order Comment: Speci men Type: URINE SPECIMEN Ordering Facility: [facility] Address: [address] [place], [place] [address] Performed By: #### 6 30-4, 01855-5 #### [facility] CLIA [id number] [address] [place] [address] [place] Hemoglobin Ql (U) 2+ Abnormal Negative [facility] Comment on above: Order Comment: Speci men Type: URINE SPECIMEN Ordering Facility: [facility] Address: [address] [place], [place] [address] Performed By: #### 6 30-4, 33900-9 #### [facility] CLIA [id number] [address] [place] [address] [place] Ketones Ql (U) Negative Normal Negative [facility] Comment on above: Order Comment: Speci men Type: URINE SPECIMEN Ordering Facility: [facility] Address: [address] [place], [place] [address] Performed By: #### 6 30-4, 05115-0 #### [facility] CLIA [id number] [address] [place] [address] [place] Leukocyte esterase Test strip Ql (U) 3+ Abnormal Negative [facility] Comment on above: Order Comment: Speci men Type: URINE SPECIMEN Ordering Facility: [facility] Address: [address] [place] [address] Performed By: #### 6 30-4, 33093-1 #### [facility] CLIA [id number] [address] [place] [address] [place] Nitrite Ql (U) Positive Abnormal Negative [facility] Comment on above: Order Comment: Speci men Type: URINE SPECIMEN Ordering Facility: [facility] Address: [address] [place] [address] Performed By: #### 6 30-4, 69175-9 #### [facility] CLIA [id number] [address] [place] [address] [place] pH (U) 5.5 [pH] Normal 5.0-8.0 [facility] Comment on above: Order Comment: Speci men Type: URINE SPECIMEN Ordering Facility: [facility] Address: [address] [place] [address] Performed By: #### 6 30-4, 50930-9 #### [facility] CLIA [id number] [address] [place] [address] [place] Protein (U) [Mass/Vol] Normal [facility] Comment on above: Order Comment: Speci men Type: URINE SPECIMEN Ordering Facility: [facility] Address: [address] [place] [address] Result Comment: Visi ble blood causes falsely elevated results for analyte Protein. Due to this limitation, Protein will not be reported for patients whose urine contains visible blood. Performed By: #### 6 30-4, 20351-9 #### [facility] CLIA [id number] [address] [place] [address] [place] RBC LM.HPF (Urine sed) [#/Area] 6-10 /HPF Abnormal 0-3 /HPF [facility] Comment on above: Order Comment: Speci men Type: URINE SPECIMEN Ordering Facility: [facility] Address: [address] [place] [address] Performed By: #### 6 30-4, 39089-5 #### [facility] CLIA [id number] [address] [place] [address] [place] Specific gravity (U) [Rel density] 1.009 Normal 1.005-1.030 [facility] Comment on above: Order Comment: Speci men Type: URINE SPECIMEN Ordering Facility: [facility] Address: [address] [place] [address] Performed By: #### 6 30-4, 77747-2 #### [facility] CLIA [id number] [address] [place] [address] [place] Urobilinogen Ql (U) 0.2 EU/dL Normal 0.2-1.0 EU/dL [facility] Comment on above: Order Comment: Speci men Type: URINE SPECIMEN Ordering Facility: [facility] Address: [address] [place] [address] Performed By: #### 6 30-4, 14237-3 #### [facility] CLIA [id number] [address] [place] [address] [place] WBC LM.HPF (Urine sed) [#/Area] 11-25 /HPF Abnormal 0-5 /HPF [facility] Comment on above: Order Comment: Speci men Type: URINE SPECIMEN Ordering Facility: [facility] Address: [address] [place] [address] Performed By: #### 6 30-4, 54251-1 #### [facility] CLIA [id number] [address] [place] [address] [place] Covid-19 PCR (CVDTB)on SARS-CoV-2 (COVID-19) RNA LUANNE+probe Ql (Unsp spec) Not detected Normal NOT DETECTED [facility] Comment on above: Result Comment: This test is not yet approved or cleared by the [place] FDA. When there are no FDA-approved or cleared tests available, and other criteria are met, FDA can make tests available under an emergency access mechanism called an Emergency Use Authorization (EUA). The EUA for this test is supported by the [place] of Health and Human Service's (HHS's) declaration [...] SARS-CoV-2. Performed By: #### C VDTB #### [facility] [address] [place] [address] Dr. Juan Pablo Kaminski Bacteria Ur Culton 2 Bacteria identified Cx Nom (U) No growth (<1,000 CFU/ml) Normal [facility] Comment on above: Order Comment: Speci men Type: URINE SPECIMEN Ordering Facility: [facility] Address: [address] [place] [address] Performed By: #### 6 30-4 #### [facility] CLIA [id number] [address] [place] [address] [place] Basic metabolic 2000 panelon 11-07-2021 Anion gap [Moles/Vol] 10 mmol/L Normal 9-18 [facility] Comment on above: Order Comment: Speci men Type: URINE SPECIMEN Ordering Facility: [facility] Address: [address] [place] [address] Performed By: #### 6 30-4, 41607-1 #### [facility] CLIA [id number] [address] [place] [address] [place] Calcium [Mass/Vol] 9.1 mg/dL Normal 8.5-10.2 [facility] Comment on above: Order Comment: Speci men Type: URINE SPECIMEN Ordering Facility: [facility] Address: [address] [place], [place] [address] Performed By: #### 6 30-4, 66164-8 #### [facility] CLIA [id number] [address] [place] [address] [place] Chloride [Moles/Vol] 95 mmol/L Low 97-105 [facility] Comment on above: Order Comment: Speci men Type: URINE SPECIMEN Ordering Facility: [facility] Address: [address] [place], [place] [address] Performed By: #### 6 30-4, 80331-5 #### [facility] CLIA [id number] [address] [place] [address] [place] CO2 [Moles/Vol] 25 mmol/L Normal 22-30 [facility] Comment on above: Order Comment: Speci men Type: URINE SPECIMEN Ordering Facility: [facility] Address: [address] [place], [place] [address] Performed By: #### 6 30-4, 12439-9 #### [facility] CLIA [id number] [address] [place] [address] [place] Creatinine [Mass/Vol] 1.25 mg/dL High 0.73-1.22 [facility] Comment on above: Order Comment: Speci men Type: URINE SPECIMEN Ordering Facility: [facility] Address: [address] [place], [place] [address] Performed By: #### 6 30-4, 40966-0 #### [facility] CLIA [id number] [address] [place] [address] [place] ESTIMATED GLOMERULAR FILTRATION RATE 57 mL/min/1.73m??? Low >=60 [facility] Comment on above: Order Comment: Speci men Type: URINE SPECIMEN Ordering Facility: [facility] Address: [address] [place] [address] Result Comment: Annalise mated Glomerular Filtration Rate [...] actual GFR. Performed By: #### 6 30-4, 68103-3 #### [facility] CLIA [id number] [address] [place] [address] [place] Glucose [Mass/Vol] 129 mg/dL High 74-99 [facility] Comment on above: Order Comment: Specfabiana men Type: URINE SPECIMEN Ordering Facility: [facility] Address: [address] [place] [address] Result Comment: The [place] [employer] (ADA) provides guidance for cutoff [...] Standards of Medical Care in Diabetes 2016, [place] [employer]. Diabetes Care. 2016.39(Suppl 1). Performed By: #### 6 30-4, 31863-8 #### [facility] CLIA [id number] [address] [place] [address] [place] Potassium [Moles/Vol] 4.6 mmol/L Normal 3.7-5.1 [facility] Comment on above: Order Comment: Domonique garcia Type: URINE SPECIMEN Ordering Facility: [facility] Address: [address] [place] [address] Performed By: #### 6 30-4, 76034-5 #### [facility] CLIA [id number] [address] [place] [address] [place] Sodium [Moles/Vol] 130 mmol/L Low 136-144 [facility] Comment on above: Order Comment: Speci men Type: URINE SPECIMEN Ordering Facility: [facility] Address: [address] [place] [address] Performed By: #### 6 30-4, 91543-7 #### [facility] CLIA [id number] [address] [place] [address] [place] Urea nitrogen [Mass/Vol] 23 mg/dL Normal 9-24 [facility] Comment on above: Order Comment: Speci men Type: URINE SPECIMEN Ordering Facility: [facility] Address: [address] [place] [address] Performed By: #### 6 30-4, 43557-9 #### [facility] CLIA [id number] [address] [place] [address] [place] CBC W Auto Differential pane l (Bld)on 11-07-2021 Basophils/100 WBC (Bld) 0.0 % Normal [facility] Comment on above: Order Comment: Speci men Type: URINE SPECIMEN Ordering Facility: [facility] Address: [address] [place] [address] Performed By: #### 6 30-4, 28488-9 #### [facility] CLIA [id number] [address] [place] [address] [place] Differential cell count method Nom (Bld) Manual Normal [facility] Comment on above: Order Comment: Speci men Type: URINE SPECIMEN Ordering Facility: [facility] Address: [address] [place], [place] [address] Performed By: #### 6 30-4, 42071-9 #### [facility] CLIA [id number] [address] [place] [address] [place] Eosinophils (Bld) [#/Vol] 0.10 10*3/uL Normal <0.46 [facility] Comment on above: Order Comment: Speci men Type: URINE SPECIMEN Ordering Facility: [facility] Address: [address] [place], [place] [address] Performed By: #### 6 30-4, 93322-6 #### [facility] CLIA [id number] [address] [place] [address] [place] Eosinophils/100 WBC (Bld) 1.0 % Normal [facility] Comment on above: Order Comment: Speci men Type: URINE SPECIMEN Ordering Facility: [facility] Address: [address] [place] [address] Performed By: #### 6 30-4, 51219-3 #### [facility] CLIA [id number] [address] [place] [address] [place] Erythrocyte distribution width (RBC) [Ratio] 11.5 % Normal 11.5-15.0 [facility] Comment on above: Order Comment: Speci men Type: URINE SPECIMEN Ordering Facility: [facility] Address: [address] [place] [address] Performed By: #### 6 30-4, 09495-3 #### [facility] CLIA [id number] [address] [place] [address] [place] Hematocrit (Bld) [Volume fraction] 39.8 % Normal 39.0-51.0 [facility] Comment on above: Order Comment: Speci men Type: URINE SPECIMEN Ordering Facility: [facility] Address: [address] [place], [place] [address] Performed By: #### 6 30-4, 29826-9 #### [facility] CLIA [id number] [address] [place] [address] [place] Hemoglobin (Bld) [Mass/Vol] 13.4 g/dL Normal 13.0-17.0 [facility] Comment on above: Order Comment: Speci men Type: URINE SPECIMEN Ordering Facility: [facility] Address: [address] [place], [place] [address] Performed By: #### 6 30-4, 12630-0 #### [facility] CLIA [id number] [address] [place] [address] Lymphocytes (Bld) [#/Vol] 1.67 10*3/uL Normal 1.00-4.00 [facility] Comment on above: Order Comment: Speci men Type: URINE SPECIMEN Ordering Facility: [facility] Address: [address] [place] [address] Performed By: #### 6 30-4, 96920-6 #### [facility] CLIA [id number] [address] [place] [address] Lymphocytes/100 WBC (Bld) 17.0 % Normal [facility] [facility] Comment on above: Order Comment: Speci men Type: URINE SPECIMEN Ordering Facility: [facility] Address: [address] [place] [address] Performed By: #### 6 30-4, 03841-1 #### [facility] CLIA [id number] [address] [place] [address] [place] MCH (RBC) [Entitic mass] 31.5 pg Normal 26.0-34.0 [facility] Comment on above: Order Comment: Speci men Type: URINE SPECIMEN Ordering Facility: [facility] Address: [address] [place], [place] [phone] Performed By: #### 6 30-4, 68013-3 #### [facility] CLIA [id number] [address] [place] [address] [place] MCHC (RBC) [Mass/Vol] 33.7 g/dL Normal 30.5-36.0 [facility] Comment on above: Order Comment: Speci men Type: URINE SPECIMEN Ordering Facility: [facility] Address: [address] [place], [place] [phone] Performed By: #### 6 30-4, 98642-8 #### [facility] CLIA [id number] [address] [place] [address] [place] MCV (RBC) [Entitic vol] 93.4 fL Normal 80.0-100.0 [facility] Comment on above: Order Comment: Speci men Type: URINE SPECIMEN Ordering Facility: [facility] Address: [address] [place] [address] Performed By: #### 6 30-4, 76828-2 #### [facility] CLIA [id number] [address] [place] [address] [place] Neutrophils (Bld) [#/Vol] 6.29 10*3/uL Normal 1.45-7.50 [facility] Comment on above: Order Comment: Speci men Type: URINE SPECIMEN Ordering Facility: [facility] Address: [address] [place] [address] Performed By: #### 6 30-4, 62541-8 #### [facility] CLIA [id number] [address] [place] [address] [place] Neutrophils/100 WBC (Bld) 64.0 % Normal [facility] Comment on above: Order Comment: Speci men Type: URINE SPECIMEN Ordering Facility: [facility] Address: [address] [place] [address] Performed By: #### 6 30-4, 29684-2 #### [facility] CLIA [id number] [address] [place] [address] [place] Nucleated RBC/100 WBC (Bld) [Ratio] 0.0 /100 WBC Normal [facility] Comment on above: Order Comment: Speci men Type: URINE SPECIMEN Ordering Facility: [facility] Address: [address] [place], [place] [phone] Performed By: #### 6 30-4, 51679-4 #### [facility] CLIA [id number] [address] [place] [address] [place] PLATELET ESTIMATE Adequate Normal [facility] Comment on above: Order Comment: Speci men Type: URINE SPECIMEN Ordering Facility: [facility] Address: [address] [place], [place] [phone] Performed By: #### 6 30-4, 17908-4 #### [facility] CLIA [id number] [address] [place] [address] [place] Platelet mean volume (Bld) [Entitic vol] 10.2 fL Normal 9.0-12.7 [facility] Comment on above: Order Comment: Speci men Type: URINE SPECIMEN Ordering Facility: [facility] Address: [address] [place], [place] [phone] Performed By: #### 6 30-4, 41347-4 #### [facility] CLIA [id number] [address] [place] [address] [place] Platelets (Bld) [#/Vol] 258 10*3/uL Normal 150-400 [facility] Comment on above: Order Comment: Speci men Type: URINE SPECIMEN Ordering Facility: [facility] Address: [address] [place], [place] [phone] Performed By: #### 6 30-4, 69100-7 #### [facility] CLIA [id number] [address] [place] [address] [place] RBC (Bld) [#/Vol] 4.26 10*6/uL Normal 4.20-6.00 [facility] Comment on above: Order Comment: Speci men Type: URINE SPECIMEN Ordering Facility: [facility] Address: [address] [place], [place] [phone] Performed By: #### 6 30-4, 18316-5 #### [facility] CLIA [id number] [address] [place] [address] [place] RED CELL MORPH Reviewed: unremarkable Normal [facility] Comment on above: Order Comment: Speci men Type: URINE SPECIMEN Ordering Facility: [facility] Address: [address] [place] [address] Performed By: #### 6 30-4, 97623-3 #### [facility] CLIA [id number] [address] [place] [address] [place] WAM - ABS BASO 0.00 k/uL Normal <0.11 [facility] Comment on above: Order Comment: Speci men Type: URINE SPECIMEN Ordering Facility: [facility] Address: [address] [place], [place] [phone] Performed By: #### 6 30-4, 47245-7 #### [facility] CLIA [id number] [address] [place] [address] [place] WAM - ABS MONO 1.77 k/uL High <0.87 [facility] Comment on above: Order Comment: Speci men Type: URINE SPECIMEN Ordering Facility: [facility] Address: [address] [place], [place] [phone] Performed By: #### 6 30-4, 90316-9 #### [facility] CLIA [id number] [address] [place] [address] [place] WAM - MONO% 18.0 % Normal [facility] Comment on above: Order Comment: Speci men Type: URINE SPECIMEN Ordering Facility: [facility] Address: [address] [place], [place] [phone] Performed By: #### 6 30-4, 86767-1 #### [facility] CLIA [id number] [address] [place] [address] [place] WAM ABSOLUTE NRBC <0.01 Normal <0.01 [facility] Comment on above: Order Comment: Speci men Type: URINE SPECIMEN Ordering Facility: [facility] Address: [address] [place], [place] [address] Performed By: #### 6 30-4, 23242-1 #### [facility] CLIA [id number] [address] [place], [place] [id number] [place] WBC (Bld) [#/Vol] 9.83 10*3/uL Normal 3.70-11.00 [facility] Comment on above: Order Comment: Speci men Type: URINE SPECIMEN Ordering Facility: [facility] Address: [address] [place] [address] Performed By: #### 6 30-4, 09031-6 #### [facility] CLIA [id number] [address] [place] [address] [place] ED NOTEon 11-07-2021 ED NOTE HNO ID: [id number] Author: Yoshi Schumacher RN Service: ? Author Type: Registered Nurse Type: ED Notes Filed: 11/07/2021 5:14 PM Note Text: Pt provided with discharged instructions. Medications gone over and all questions answered. Pt. Left with steady gait with friend for a ride. [facility] ED NOTE HNO ID: [id number] Author: Flaquita Donnelly RN Service: ? Author Type: Registered Nurse Type: ED Notes Filed: 11/07/2021 1:24 PM Note Text: Pt to ED for urinary retention. Pt had appointment with Urology on Wednesday, but was not able to be seen. Pt denies pain, but reports pressure in the bladder. Pt states he is not able to urinate completely and reports dribbling. [facility] ED PROV NOTEon 11-07-2021 ED PROV NOTE HNO ID: [id number] Author: Keely Gutierrez DO Service: Emergency Medicine [...] this Wednesday with his urologist out of [place] but was notified that his urologist had [...] Abnormal; Notable for the following components: Abs [place] 1.77 (*) <0.87 k/uL All other components [...] cysts one of which is mildly complex. Forming Acid Dumper: LIANA Transcribe Date/Time: Nov 07 2021 2:57P [...] at th (more content not included)... Normal [facility] US KIDNEY/BLADDERon 11-08-19 US KIDNEY/BLADDER * * *Final Report* * * DATE OF EXAM: Nov 07 2021 2:52PM [facility] 1055 - US KIDNEY/BLADDER / PROCEDURE REASON: [...] cysts one of which is mildly complex. Forming Acid Dumper[facility] Transcribe Date/Time: Nov 07 2021 2:57P Dictated by : NEHEMIAS COLBERT MD This examination was interpreted and the report reviewed and electronically signed by: NEHEMIAS COLBERT MD on Nov 07 2021 3:09PM EST [id number] Normal [facility] Urinalysis complete panel (U )on 11-07-2021 Bilirubin Ql (U) Negative Normal Negative [facility] Comment on above: Order Comment: Speci men Type: URINE SPECIMEN Ordering Facility: [facility] Address: [address] [place] [address] Performed By: #### 6 30-4, 74723-9 #### [facility] CLIA [id number] [address] [place] [address] [place] Clarity (Unsp spec) Clear Normal Clear [facility] Comment on above: Order Comment: Speci men Type: URINE SPECIMEN Ordering Facility: [facility] Address: [address] [place] [address] Performed By: #### 6 30-4, 32241-1 #### [facility] CLIA [id number] [address] [place] [address] [place] Color (U) Yellow Normal Yellow [facility] Comment on above: Order Comment: Speci men Type: URINE SPECIMEN Ordering Facility: [facility] Address: [address] [place] [address] Performed By: #### 6 30-4, 55866-6 #### [facility] CLIA [id number] [address] [place] [address] [place] Epithelial cells LM.HPF (Urine sed) [#/Area] Few Normal [facility] Comment on above: Order Comment: Speci men Type: URINE SPECIMEN Ordering Facility: [facility] Address: [address] [place] [address] Performed By: #### 6 30-4, 14138-5 #### [facility] CLIA [id number] [address] [place] [address] [place] Glucose Test strip (U) [Mass/Vol] Negative Normal Negative [facility] Comment on above: Order Comment: Speci men Type: URINE SPECIMEN Ordering Facility: [facility] Address: [address] [place] [address] Performed By: #### 6 30-4, 57567-9 #### [facility] CLIA [id number] [address] [place] [address] [place] Hemoglobin Ql (U) Negative Normal Negative [facility] Comment on above: Order Comment: Speci men Type: URINE SPECIMEN Ordering Facility: [facility] Address: [address] [place], [place] [phone] Performed By: #### 6 30-4, 51088-2 #### [facility] CLIA [id number] [address] [place] [address] [place] Hyaline casts (Urine sed) [#/Area] 1-3 /LPF Abnormal 0 /LPF [facility] Comment on above: Order Comment: Speci men Type: URINE SPECIMEN Ordering Facility: [facility] Address: [address] [place], [place] [address] Performed By: #### 6 30-4, 27351-3 #### [facility] CLIA [id number] [address] [place] [address] [place] Ketones Ql (U) Trace Abnormal Negative [facility] Comment on above: Order Comment: Speci men Type: URINE SPECIMEN Ordering Facility: [facility] Address: [address] [place] [address] Performed By: #### 6 30-4, 66086-9 #### [facility] CLIA [id number] [address] [place] [address] [place] Leukocyte esterase Test strip Ql (U) Negative Normal Negative [facility] Comment on above: Order Comment: Speci men Type: URINE SPECIMEN Ordering Facility: [facility] Address: [address] [place] [address] Performed By: #### 6 30-4, 59648-1 #### [facility] CLIA [id number] [address] [place] [address] [place] Nitrite Ql (U) Negative Normal Negative [facility] Comment on above: Order Comment: Speci men Type: URINE SPECIMEN Ordering Facility: [facility] Address: [address] [place], [place] [phone] Performed By: #### 6 30-4, 44309-7 #### [facility] CLIA [id number] [address] [place] [address] [place] pH (U) 5.5 [pH] Normal 5.0-8.0 [facility] Comment on above: Order Comment: Speci men Type: URINE SPECIMEN Ordering Facility: [facility] Address: [address] [place] [address] Performed By: #### 6 30-4, 67675-8 #### [facility] CLIA [id number] [address] STATES [facility] Protein (U) [Mass/Vol] Negative Normal Negative [facility] Comment on above: Order Comment: Speci men Type: URINE SPECIMEN Ordering Facility: [facility] Address: [address] [place] [address] Performed By: #### 6 30-4, 81222-5 #### [facility] CLIA [id number] [address] [place] [address] [place] RBC LM.HPF (Urine sed) [#/Area] 0-3 /HPF Normal 0-3 /HPF [facility] Comment on above: Order Comment: Speci men Type: URINE SPECIMEN Ordering Facility: [facility] Address: [address] [place] [address] Performed By: #### 6 30-4, 15003-5 #### [facility] CLIA [id number] [address] [place] [address] [place] Specific gravity (U) [Rel density] 1.024 Normal 1.005-1.030 [facility] Comment on above: Order Comment: Speci men Type: URINE SPECIMEN Ordering Facility: [facility] Address: [address] [place] [address] Performed By: #### 6 30-4, 97461-0 #### [facility] CLIA [id number] [address] [place] [address] [place] Urobilinogen Ql (U) 0.2 EU/dL Normal 0.2-1.0 EU/dL [facility] Comment on above: Order Comment: Speci men Type: URINE SPECIMEN Ordering Facility: [facility] Address: [address] [place], [place] [address] Performed By: #### 6 30-4, 69130-4 #### [facility] CLIA [id number] [address] [place] [address] [place] WBC LM.HPF (Urine sed) [#/Area] 0-5 /HPF Normal 0-5 /HPF [facility] Comment on above: Order Comment: Speci men Type: URINE SPECIMEN Ordering Facility: [facility] Address: [address] [place], [place] [address] Performed By: #### 6 30-4, 84009-0 #### [facility] CLIA [id number] [address] [place] [address] [address] [place] Ambulatory Visit Summaryon 0 10-28-2021 Ambulatory Visit Summary NORBERTO WASHINGTON :1940 Visit Date:10/28/2021 Ambulatory Visit Instructions Your Diagnosis BPH with urinary obstruction Nocturia Post-void dribbling Incomplete emptying of bladder Urinary incontinence Tests Performed Urnls Dip Stick Auto w/o Microscopy POC 95527 Your Care Team Attending Physician - Paul [...] schedule Cysto Where: [facility] [address], [place] [address]- Medications What How Much When Instructions Unchanged [...] Urnls Dip Stick Auto w/o Microscopy POC 99079 (10/28/2021) Bilirubin Urine Dipstick - Negative Blood Urine Dipstick - Negative Glucose Urine Dipstick - Negative Ketones Urine Dipstick - Negative Leukocytes Urine Dipstick - Negative Nitrite Urine Dipstick - Negative Protein Urine Dipstick - Negative Specific [place] Urine Dipstick - 1.015 Urine Appearance Urine [...] ? Urina (more content not included)... Normal [facility] Patient Educationon 10-29-19 Patient Education Urology Benign [...] Follow these instructions at home: ? Take qqlh-[id number]-[id number] and prescription medicines only as told by [...] You d (more content not included)... Normal [facility] Urology Office/Clinic Noteon 10-28-2021 Urology Office/Clinic Note [...] urine and/or bladder capacity by US- non-imaging 52860 PSA Total Urnls Dip Stick Auto w/o Microscopy POC 79411 Urology Procedure Order 2. Nocturia (R35.1: Nocturia) moderate, Variable 2-5 times per night Ordered: Measure Post Void residual urine and/or bladder capacity by US- non-imaging 71203 PSA Total Urology Procedure Order 3. Post-void dribbling (N39.43: Post-v (more content not included)... Normal [facility] Comment on above: Result Comment: Elec tronically Signed By: Billy Connolly MD, Paul Valdes\.br\Date and Time Signed: 10/28/21 08:47 EDT\.br\Electronically Co-Signed By: Jessie Rivera\.br\Date and Time Co-Signed: 10/28/21 08:39 EDT MICROALBUMIN URINEon 022 Albumin, Urine 5.6 ug/mL Normal Not Estab. [facility] Comment on above: Performed By: #### M ALBLC #### [facility] [address] [place] [address] Dr. Juan Pablo Kaminski US CAROTID ART [...] SAMY TORRES Date: 2021-10-23 17:19 Normal [facility] CBC AUTO DIFFon 10-21-2021 BASO # 0.0 103/ul Normal 0.0-0.1 [facility] Comment on above: Performed By: #### A 1C #### [facility] [address] [place] [address] Dr. Juan Pablo Kaminski Basophils/100 WBC (Bld) 0.5 % Normal 0.2-2.0 [facility] Comment on above: Performed By: #### A 1C #### [facility] [address] [place] [address] Dr. Juan Pablo Kaminski EO # 0.3 103/ul Normal 0.0-0.7 [facility] Comment on above: Performed By: #### A 1C #### [facility] [address] [place] [address] Dr. Juan Pablo Kaminski Eosinophils/100 WBC (Bld) 3.6 % Normal 0.9-7.0 [facility] Comment on above: Performed By: #### A 1C #### [facility] [address] [place] [address] Dr. Juan Pablo Kaminski Erythrocyte distribution width (RBC) [Ratio] 11.1 % Normal 11.0-15.0 [facility] Comment on above: Performed By: #### A 1C #### [facility] [address] [place] [address] Dr. Juan Pablo Kaminski Hematocrit (Bld) [Volume fraction] 41.8 % Critically low 42.0-54.0 [facility] Comment on above: Performed By: #### A 1C #### [facility] [address] [place] [address] Dr. Juan Pablo Kaminski Hemoglobin (Bld) [Mass/Vol] 14.1 g/dL Normal 14.0-18.0 [facility] Comment on above: Performed By: #### A 1C #### [facility] [address] [place] [address] Dr. Juan Pablo Kaminski IG # 0.03 10e3/ul Normal 0.00-0.03 [facility] Comment on above: Performed By: #### A 1C #### [facility] [address] [place] [address] Dr. Juan Pablo Kaminski IG % 0.4 % Normal 0.0-0.5 [facility] Comment on above: Performed By: #### A 1C #### [facility] [address] [place] [address] Dr. Juan Pablo Kaminski LYMPH # 2.2 103/ul Normal 1.2-3.8 [facility] Comment on above: Performed By: #### A 1C #### [facility] [address] [place] [address] Dr. Juan Pablo Kaminski Lymphocytes/100 WBC (Bld) 29.4 % Normal 20.5-60.0 [facility] Comment on above: Performed By: #### A 1C #### [facility] [address] [place] [address] Dr. Juan Pablo Kaminski MANUAL DIFF REQ NO Normal [facility] Comment on above: Performed By: #### A 1C #### [facility] [address] [place] [address] Dr. Juan Pablo Kaminski MCH (RBC) [Entitic mass] 31.8 pg Normal 25.9-34.0 [facility] Comment on above: Performed By: #### A 1C #### [facility] [address] [address] [address] Juan Pablo Kaminski MCHC (RBC) [Mass/Vol] 33.7 g/dL Normal 29.9-35.2 [facility] Comment on above: Performed By: #### A 1C #### [facility] [address] [address] [address] Juan Pablo Kaminski MCV (RBC) [Entitic vol] 94.1 fL Critically high 80.0-94.0 [facility] Comment on above: Performed By: #### A 1C #### [facility] [address] [address] [address] Juan Pablo Kaminski MONO # 0.9 103/ul Critically high 0.3-0.8 [facility] Comment on above: Performed By: #### A 1C #### [facility] [address] [address] [address] Juan Pablo Kaminski Monocytes/100 WBC (Bld) 11.7 % Normal 1.7-12.0 [facility] Comment on above: Performed By: #### A 1C #### [facility] [address] [address] [address] Juan Pablo Kaminski NEUT # 4.0 103/ul Normal 1.4-6.5 [facility] Comment on above: Performed By: #### A 1C #### [facility] [address] [address] [address] Juan Pablo Kaminski Neutrophils/100 WBC (Bld) 54.4 % Normal 43.0-75.0 [facility] Comment on above: Performed By: #### A 1C #### [facility] [address] [address] [address] Juan Pablo Kaminski Platelet mean volume (Bld) [Entitic vol] 8.6 fL Critically low 9.5-13.5 [facility] Comment on above: Performed By: #### A 1C #### [facility] [address] [address] [address] Juan Pablo Kaminski PLT 231 103/ul Normal 150-450 [facility] Comment on above: Performed By: #### A 1C #### [facility] [address] [address] [address] Juan Pablo Kaminski RBC 4.44 106/ul Critically low 4.70-6.10 [facility] Comment on above: Performed By: #### A 1C #### [facility] [address] [address] [address] Juan Pablo Kaminski WBC 7.3 103/ul Normal 4.0-11.0 [facility] Comment on above: Performed By: #### A 1C #### [facility] [address] [address] [address] Juan Pablo Kaminski DIRECT LDLon 10-21-2021 Cholesterol in LDL [Mass/Vol] 106 mg/dL Normal [facility] Comment on above: Performed By: #### A LT BMP, DLDL #### [facility] [address] [place] [address] Dr. Juan Pablo Kaminski DLDL NORMAL SEE BELOW Normal [facility] Comment on above: Result Comment: <100 mg/dl OPTIMAL 100 - 129 mg/dl NEAR OR ABOVE OPTIMAL 130 - 159 mg/dl BORDERLINE HIGH 160 - 189 mg/dl HIGH >190 mg/dl VERY HIGH Performed By: #### A LT, BMP, DLDL #### [facility] [address] [address] [address] Juan Pablo Kaminski GLYCOHEMOGLOBIN A1Con 2021 ADA RECOMMENDATION SEE BELOW Normal [facility] Comment on above: Result Comment: ADA RECOMMENDED LIMIT 4.0 - 6.0 ADA THERAPEUTIC TARGET < 7.0 ACTION SUGGESTED > 7.0 Performed By: #### A 1C #### [facility] [address] [place] [address] Dr. Juan Pablo Kaminski Glucose [Mass/Vol] 120 mg/dL Normal [facility] Comment on above: Performed By: #### A 1C #### [facility] [address] [place] [address] Dr. Juan Pablo Kaminski HbA1c (Bld) [Mass fraction] 5.8 % Normal 4.5-6.2 [facility] Comment on above: Performed By: #### A 1C #### [facility] [address] [place] [address] Dr. Juan Pablo Kaminski PROF CHEM 8 (BAS METB)on Anion gap [Moles/Vol] 12.7 mmol/L Normal [facility] Comment on above: Performed By: #### A 1C #### [facility] [address] [place] [address] Dr. Juan Pablo Kaminski Calcium [Mass/Vol] 8.7 mg/dL Normal 8.5-10.1 [facility] Comment on above: Performed By: #### A 1C #### [facility] [address] [place] [address] Dr. Juan Pablo Kaminski Chloride [Moles/Vol] 98 mmol/L Normal 98-107 [facility] Comment on above: Performed By: #### A 1C #### [facility] [address] [place] [address] Dr. Juan Pablo Kaminski CO2 [Moles/Vol] 28.0 mmol/L Normal 21.0-32.0 [facility] Comment on above: Performed By: #### A 1C #### [facility] [address] [place] [address] Dr. Juan Pablo Kaminski Creatinine [Mass/Vol] 1.07 mg/dL Normal 0.70-1.30 [facility] Comment on above: Performed By: #### A 1C #### [facility] [address] [place] [address] Dr. Juan Pablo Kaminski EGFR-AF T[place] >60 Normal >=60 [facility] [facility] Comment on above: Performed By: #### A 1C #### [facility] [address] [place] [address] Dr. Juan Pablo Kaminski EGFR-NON AF TAIWANESE >60 Normal >=60 [facility] Comment on above: Performed By: #### A 1C #### [facility] [address] [place] [address] Dr. Juan Pablo Kaminski Glucose [Mass/Vol] 133 mg/dL Critically high 74-106 [facility] Comment on above: Performed By: #### A 1C #### [facility] [address] [place] [address] Dr. Juan Pablo Kaminski Potassium [Moles/Vol] 4.7 mmol/L Normal 3.5-5.1 [facility] Comment on above: Performed By: #### A 1C #### [facility] [address] [place] [address] Dr. Juan Pablo Kaminski Sodium [Moles/Vol] 134 mmol/L Critically low 136-145 [facility] Comment on above: Performed By: #### A 1C #### [facility] [address] [place] [address] Dr. Juan Pablo Kaminski Urea nitrogen [Mass/Vol] 17.0 mg/dL Normal 7.0-18.0 [facility] Comment on above: Performed By: #### A 1C #### [facility] [address] [place] [address] Dr. Juan Pablo Kaminski Urea nitrogen/Creatinine [Mass ratio] 15.9 mg/mg Normal [facility] Comment on above: Performed By: #### A 1C #### [facility] [address] [place] [address] Dr. [facility] ALT [Catalytic activity/Vol] 31 U/L Normal 16-63 [facility] Comment on above: Performed By: #### A 1C #### [facility] [address] [place] [address] Dr. Juan Pablo Kaminski GLYCOHEMOGLOBIN A1Con 2021 ADA RECOMMENDATION SEE BELOW Normal [facility] Comment on above: Result Comment: ADA RECOMMENDED LIMIT 4.0 - 6.0 ADA THERAPEUTIC TARGET < 7.0 ACTION SUGGESTED > 7.0 Performed By: #### A 1C #### [facility] [address] [place] [address] Dr. Juan Pablo Kaminski Glucose [Mass/Vol] 131 mg/dL Normal [facility] Comment on above: Performed By: #### A 1C #### [facility] [address] [place] [address] Dr. Juan Pablo Kaminski HbA1c (Bld) [Mass fraction] 6.2 % Normal 4.5-6.2 [facility] Comment on above: Performed By: #### A 1C #### [facility] [address] [place] [address] Dr. Juan Pablo Kaminski Vital Signs Date Time Vital Sign Value Performing Clinician Denis diehly 03-17-2023 10:30-0500 Body height 190.5 cm Campbell Ball Other [facility] Other 03-17-2023 10:30-0500 Body mass index (BMI) [Ratio] 27.55 kg/m2 Campbell Ball Other [facility] Other 03-17-2023 10:30-0500 Body weight 99.97 kg Campbell Ball Other [facility] Other 03-17-2023 10:30-0500 Diastolic blood pressure 67 mm[Hg] Campbell Ball Other [facility] Other 03-17-2023 10:30-0500 Respiratory rate 12 /min Campbell Ball Other [facility] Other 03-17-2023 10:30-0500 Systolic blood pressure 159 mm[Hg] Campbell Ball Other [facility] Other 02-23-2023 09:30-0500 Body height 190.5 cm Campbell Ball Other [facility] Other 02-23-2023 09:30-0500 Body mass index (BMI) [Ratio] 28.02 kg/m2 Campbell Ball Other [facility] Other 02-23-2023 09:30-0500 Body weight 101.7 kg Campbell Ball Other [facility] Other 02-23-2023 09:30-0500 Diastolic blood pressure 78 mm[Hg] Campbell Ball Other [facility] Other 02-23-2023 09:30-0500 Respiratory rate 12 /min Campbell Ball Other [facility] Other 02-23-2023 09:30-0500 Systolic blood pressure 157 mm[Hg] Campbell Ball Other [facility] Other 02-19-2023 10:45-0500 Body height 190.5 cm Campbell Ball Other [facility] Other 02-19-2023 10:45-0500 Body mass index (BMI) [Ratio] 28 kg/m2 Campbell Ball Other [facility] Other 02-19-2023 10:45-0500 Body weight 101.61 kg Campbell Ball Other [facility] Other 02-19-2023 10:45-0500 Diastolic blood pressure 72 mm[Hg] Campbell Ball Other [facility] Other 02-19-2023 10:45-0500 Respiratory rate 12 /min Campbell Ball Other [facility] Other 02-19-2023 10:45-0500 Systolic blood pressure 144 mm[Hg] Campbell Ball Other [facility] Other 02-02-2023 13:37-0500 Body weight 102.06 kg Leticia Dothan [employer] Work Phone: [facility] 02-02-2023 13:37-0500 Diastolic blood pressure 70 mm[Hg] Leticia Dothan [employer] Work Phone: [facility] 02-02-2023 13:37-0500 Heart rate 65 /min Leticia Dothan [employer] Work Phone: [facility] 02-02-2023 13:37-0500 Systolic blood pressure 146 mm[Hg] Leticia Dothan [employer] Work Phone: [facility] 09-22-2022 12:15-0400 Body height 190.5 cm Campbell Ball Other [facility] Other 09-22-2022 12:15-0400 Diastolic blood pressure 82 mm[Hg] Campbell Ball Other [facility] Other 09-22-2022 12:15-0400 Systolic blood pressure 135 mm[Hg] Campbell Ball Other [facility] Other 09-17-2022 09:00-0400 Body height 190.5 cm Campbell Ball Other [facility] Other 09-17-2022 09:00-0400 Body mass index (BMI) [Ratio] 27.57 kg/m2 Campbell Ball Other [facility] Other 09-17-2022 09:00-0400 Body weight 100.06 kg Campbell Ball Other [facility] Other 09-17-2022 09:00-0400 Diastolic blood pressure 62 mm[Hg] Campbell Ball Other [facility] Other 09-17-2022 09:00-0400 Respiratory rate 12 /min Campbell Ball Other [facility] Other 09-17-2022 09:00-0400 Systolic blood pressure 128 mm[Hg] Campbell Ball Other [facility] Other 06-18-2022 10:00-0400 Body height 190.5 cm Campbell Ball Other [facility] Other 06-18-2022 10:00-0400 Body mass index (BMI) [Ratio] 28.02 kg/m2 Campbell Ball Other [facility] Other 06-18-2022 10:00-0400 Body weight 101.7 kg Campbell Ball Other [facility] Other 06-18-2022 10:00-0400 Diastolic blood pressure 62 mm[Hg] Campbell Ball Other [facility] Other 06-18-2022 10:00-0400 Respiratory rate 12 /min Campbell Ball Other [facility] Other 06-18-2022 10:00-0400 Systolic blood pressure 119 mm[Hg] Campbell Ball Other [facility] Other 04-08-2022 12:00-0500 Body height 190.5 cm Campbell Ball Other [facility] Other 04-08-2022 12:00-0500 Body mass index (BMI) [Ratio] 27.82 kg/m2 Cmapbell Ball Other [facility] Other 04-08-2022 12:00-0500 Body temperature 97.1 [degF] Campbell Ball Other [facility] Other 04-08-2022 12:00-0500 Body weight 100.97 kg Campbell Ball Other [facility] Other 04-08-2022 12:00-0500 Diastolic blood pressure 68 mm[Hg] Campbell Ball Other [facility] Other 04-08-2022 12:00-0500 SaO2% (BldA) [Mass fraction] 97 % Campbell Ball Other [facility] Other 04-08-2022 12:00-0500 Systolic blood pressure 124 mm[Hg] Campbell Ball Other [facility] Other 03-20-2022 10:00-0500 Body height 190.5 cm Campbell Ball Other [facility] Other 03-20-2022 10:00-0500 Body mass index (BMI) [Ratio] 27.95 kg/m2 Campbell Ball Other [facility] Other 03-20-2022 10:00-0500 Body weight 101.42 kg Campbell Ball Other [facility] Other 03-20-2022 10:00-0500 Diastolic blood pressure 60 mm[Hg] Campbell Ball Other [facility] Other 03-20-2022 10:00-0500 Respiratory rate 12 /min Campbell Ball Other [facility] Other 03-20-2022 10:00-0500 Systolic blood pressure 112 mm[Hg] Campbell Ball Other [facility] Other 01-08-2022 08:47-0400 Body weight 97.52 kg Leonard Dugan MD Work Phone: [facility] 01-08-2022 08:47-0400 Diastolic blood pressure 61 mm[Hg] Leonard Dugan MD Work Phone: [facility] 01-08-2022 08:47-0400 Heart rate 72 /min Leonard Dugan MD Work Phone: [facility] 01-08-2022 08:47-0400 Systolic blood pressure 139 mm[Hg] Leonard Dugan MD Work Phone: [facility] 12-26-2021 08:32-0400 Body temperature 98 [degF] DO Campbell Ball Work Phone: [facility] 12-26-2021 08:32-0400 Diastolic blood pressure 62 mm[Hg] DO Campbell Ball Work Phone: [facility] 12-26-2021 08:32-0400 Heart rate 75 /min DO Campbell Ball Work Phone: [facility] 12-26-2021 08:32-0400 Respiratory rate 18 /min DO Campbell Ball Work Phone: [facility] 12-26-2021 08:32-0400 SaO2% (BldA) [Mass fraction] 98 % DO Campbell Ball Work Phone: [facility] 12-26-2021 08:32-0400 Systolic blood pressure 146 mm[Hg] DO Campbell Ball Work Phone: [facility] 12-17-2021 16:22-0400 Body height 190.5 cm DO Campbell Ball Work Phone: [facility] 12-17-2021 16:22-0400 Body weight 97.52 kg DO Acmpbell Ball Work Phone: [facility] 12-17-2021 16:19-0400 Body temperature 98.4 [degF] DO Campbell Ball Work Phone: [facility] 12-17-2021 16:19-0400 Diastolic blood pressure 63 mm[Hg] DO Campbell Ball Work Phone: [facility] 12-17-2021 16:19-0400 Heart rate 66 /min DO Campbell Ball Work Phone: [facility] 12-17-2021 16:19-0400 Respiratory rate 16 /min DO Campbell Ball Work Phone: [facility] 12-17-2021 16:19-0400 SaO2% (BldA) [Mass fraction] 96 % DO Campbell Ball Work Phone: [facility] 12-17-2021 16:19-0400 Systolic blood pressure 135 mm[Hg] DO Campbell Ball Work Phone: [facility] 12-16-2021 14:41-0400 Diastolic blood pressure 62 mm[Hg] Leonard Dugan MD Work Phone: [facility] 12-16-2021 14:41-0400 Heart rate 69 /min Leonard Dugan MD Work Phone: [facility] 12-16-2021 14:41-0400 Respiratory rate 16 /min Leonard Dugan MD Work Phone: [facility] 12-16-2021 14:41-0400 Systolic blood pressure 141 mm[Hg] Leonard Dugan MD Work Phone: [facility] 12-11-2021 18:25-0400 Body temperature 97.5 [degF] DO Campbell Ball Work Phone: [facility] 12-11-2021 18:25-0400 Diastolic blood pressure 88 mm[Hg] DO Campbell Ball Work Phone: [facility] 12-11-2021 18:25-0400 Heart rate 67 /min DO Campbell Ball Work Phone: [facility] 12-11-2021 18:25-0400 Respiratory rate 20 /min DO Campbell Ball Work Phone: [facility] 12-11-2021 18:25-0400 SaO2% (BldA) [Mass fraction] 99 % DO Campbell Ball Work Phone: [facility] 12-11-2021 18:25-0400 Systolic blood pressure 175 mm[Hg] DO Campbell Ball Work Phone: [facility] 12-11-2021 16:57-0400 Body height 190.5 cm DO Campbell Ball Work Phone: [facility] 12-11-2021 16:57-0400 Body weight 98.5 kg DO Campbell Ball Work Phone: [facility] 12-10-2021 10:50-0400 Body weight 95.25 kg Nurse Kapoor Work Phone: [facility] 12-10-2021 10:50-0400 Diastolic blood pressure 80 mm[Hg] Nurse Emelia Work Phone: [facility] 12-10-2021 10:50-0400 Heart rate 59 /min Nurse Emelia Work Phone: [facility] 12-10-2021 10:50-0400 Systolic blood pressure 152 mm[Hg] Nurse Emeila Work Phone: [facility] 12-09-2021 14:27-0400 Body weight 95.25 kg [employer] [facility] Work Phone: [facility] 12-09-2021 14:27-0400 Diastolic blood pressure 68 mm[Hg] [employer] [place] Work Phone: [facility] 12-09-2021 14:27-0400 Heart rate 70 /min [employer] [place] Work Phone: [facility] 12-09-2021 14:27-0400 Systolic blood pressure 164 mm[Hg] [employer] [place] Work Phone: [facility] 11-12-2021 11:23-0400 Body weight 96.16 kg Leonard Dugan MD Work Phone: [facility] 11-12-2021 11:23-0400 Diastolic blood pressure 73 mm[Hg] Leonard Dugan MD Work Phone: [facility] 11-12-2021 11:23-0400 Heart rate 56 /min Leonard Dugan MD Work Phone: [facility] 11-12-2021 11:23-0400 Systolic blood pressure 162 mm[Hg] Leonard Dugan MD Work Phone: [facility] Encounters Encounter Date Encounter Type Care Provider Facility Start: 04-15-2023 End: 04-15-2023 ambulatory Campbell Naranjo Other [place] [facility] Other Start: 04-15-2023 Telephone encounter Campbell SINGH [facility] Start: 03-17-2023 End: 03-17-2023 ambulatory Campbell Naranjo Other [facility] Other Start: 03-17-2023 Transitional care manage srvc 14 day discharge Campbell Naranjo [facility] Start: 03-04-2023 End: 03-04-2023 ambulatory Campbell Naranjo Other [facility] Other Start: 03-04-2023 Telephone encounter Campbell SINGH [facility] Start: 02-23-2023 End: 02-23-2023 ambulatory Campbell Naranjo Other [facility] Other Start: 02-23-2023 Office outpatient vi sit 15 minutes Campbell Naranjo [facility] Start: 02-23-2023 Telephone encounter Campbell SINGH [facility] Start: 02-19-2023 End: 02-19-2023 ambulatory Campbell Naranjo Other [facility] Other Start: 02-19-2023 Office outpatient vi sit 15 minutes Campbell Naranjo [facility] Start: 02-02-2023 End: 02-02-2023 ambulatory LETICIA MILIAN Facility:[facility] Start: 02-02-2023 End: 02-02-2023 Patient encounter procedure Leticia Milian [employer] Work Phone: Urology Comment on above: BPH with obstruction /lower urinary tract symptoms (Primary Dx); Recurrent UTI; Weak urinary stream Start: 01-19-2023 End: 01-19-2023 ambulatory LETICIA MILIAN Facility:[facility] Start: 01-13-2023 End: 01-13-2023 Emergency department patient visit Campbell Naranjo Facility:[facility] Start: 01-13-2023 End: 01-13-2023 Emergency department patient visit DO Campbell Naranjo Work Phone: [facility] Work Phone: Start: 12-21-2022 End: 12-21-2022 ambulatory Campbell Naranjo Other [facility] Other Start: 12-21-2022 Telephone encounter [facility] Start: 09-22-2022 End: 09-22-2022 ambulatory Campbell Naranjo Other [facility] Other Start: 09-22-2022 Office outpatient vi sit 15 minutes Campbell Naranjo [facility] Start: 09-20-2022 End: 09-20-2022 ambulatory Cornell Baptiste Other [facility] Other Start: 09-20-2022 Encounter by Trendyta raissa Baptiste [facility] Start: 09-17-2022 End: 09-17-2022 ambulatory Campbell Naranjo Other [facility] Other Start: 09-17-2022 Office outpatient vi sit 25 minutes Campbell Naranjo [facility] Start: 09-15-2022 End: 09-15-2022 ambulatory Cornell Baptiste Other [facility] Other Start: 09-15-2022 Encounter by Trendyta raissa Baptiste [facility] Start: 07-28-2022 End: 07-28-2022 ambulatory LETICIA Kin MILIAN Facility:[facility] Start: 07-20-2022 End: 07-20-2022 ambulatory LETICIA MILIAN Facility:[facility] Start: 06-25-2022 End: 06-26-[address] CAMPBELL NARANJO Facility:[facility] Start: 06-18-2022 End: 06-18-2022 ambulatory Campbell Naranjo Other [facility] Other Start: 06-18-2022 Office outpatient vi sit 25 minutes Campbell Naranjo [facility] Start: 06-02-2022 End: 06-03-[address] CAMPBELL NARANJO Facility:[facility] Start: 04-08-2022 End: 04-08-2022 ambulatory Campbell Naranjo Other [facility] Other Start: 04-08-2022 Office outpatient vi sit 15 minutes Campbell Naranjo [facility] Start: 03-24-2022 End: 03-24-2022 ambulatory Campbell Naranjo Other [facility] Other Start: 03-24-2022 Telephone encounter Campbell SINGH [facility] Start: 03-20-2022 Office outpatient vi sit 25 minutes Campbell Naranjo [facility] Start: 03-20-2022 End: 03-21-[address] CAMPBELL NARANJO [facility] Other Start: 01-08-2022 End: 01-08-2022 Patient encounter procedure Leonard Dugan MD Work Phone: Urology Comment on above: Chronic epididymitis (Primary Dx); Left hydrocele; Weak urinary stream; BPH without obstruction/lower urinary tract symptoms; Epididymitis Start: 01-07-2022 Refill Leonard Dugan MD Work Phone: Urology Comment on above: Refill Request Start: 12-26-2021 End: 12-26-2021 ambulatory DO Campbell Naranjo Work Phone: [facility] Work Phone: Start: 12-26-2021 End: 12-26-2021 Discharged Recurring DO Campbell Naranjo Work Phone: [facility]Infusion Therapy - O/P Start: 12-25-2021 End: 12-26-[address] CAMPBELL NARANJO Facility: Start: 12-17-2021 End: 12-17-2021 Emergency department patient visit DO Campbell Naranjo Work Phone: [facility] Start: 12-16-2021 End: 12-16-2021 Patient encounter procedure Leonard Dugan MD Work Phone: Urology Comment on above: Retention of urine ( Primary Dx); Flaccid bladder Start: 12-15-2021 Telephone encounter Leticia puentes APRN.CNP Work Phone: Urology Comment on above: Patient Update Start: 12-11-2021 End: 12-11-2021 Emergency department patient visit DO Campbell Naranjo Work Phone: [facility] Start: 12-11-2021 Telephone encounter Leonard Dugan MD Work Phone: Urology Comment on above: Patient Update Start: 12-10-2021 End: 12-10-2021 Nursing evaluation of patient and report [facility] Work Phone: Urology Comment on above: Urinary tract infect ion without hematuria, site unspecified (Primary Dx); Feeling of incomplete bladder emptying; Benign prostatic hyperplasia with urinary retention Start: 12-09-2021 End: 12-09-2021 Nursing evaluation of patient and report [employer] Work Phone: Urology Comment on above: Urinary frequency (P rimary Dx); Urinary urgency; Urinary straining; Feeling of incomplete bladder emptying Start: 12-08-2021 Telephone encounter Leonard Dugan MD Work Phone: Urology Comment on above: Appointment (Resched ule catheter change) Start: 11-26-2021 End: 11-27-2021 Emergency department patient visit CAMPBELL NARANJO Facility:[facility] Start: 11-21-2021 Telephone encounter Leonard [...] Emergency department patient visit RAN LEES JR Facility:[facility] Start: 10-23-2021 End: 10-24-[address] CAMPBELL NARANJO Facility:[facility] Start: 10-21-2021 End: 10-22-[address] CAMPBELL NARANJO Facility:[facility] Start: 10-20-2021 Adult health examination Campbell Naranjo Other [facility] Other Start: 07-17-2021 End: 07-18-[address] CAMPBELL NARANJO Facility: Start: 01-09-2020 End: 01-09-2020 Pre-procedure evaluation check Campbell Naranjo Other [facility] Other Procedures Date Procedure Procedure Detail Performing Clinician Start: 10-14-2021 Depression screening Be juarez Naranjo Other Start: 03-23-2016 Screening for malign ant neoplasm of colon Campbell Naranjo Other Start: 01-30-2015 Screening for malign ant neoplasm of prostate Campbell Naranjo Other Urine culture DO Campbell Huang ll Work Phone: Urine culture DO Campbell Huang ll Work Phone: Urine culture DO Campbell Huang ll Work Phone: Plan of Treatment Date Care Activity Detail Author Start: 12-28-2022 Urine microalbumin profile DTaP,Tdap,Td Vaccine (3 - Tdap) [facility] Start: 11-13-2022 Covid-19 Vaccine ( season) Covid-19 Vaccine ( season) [facility] Start: 03-15-2022 Advance Directive Discussion Advance Directive Discussion [facility] Start: 03-15-2022 Depression Assessment Depression Ass essment [facility] Start: 01-08-2022 End: 03-10-2022 Bacteria identified in Urine by Culture URINE CULTURE Microbiology Routine Left hydrocele Chronic epididymitis Weak urinary stream BPH without obstruction/lower urinary tract symptoms Epididymitis Expected: 01/08/2022 (Approximate), Expires: 03/10/2022 [facility] Work Phone: Comment on above: Expected: 01/08/2022 (Approximate), Expires: 03/10/2022 Start: 01-08-2022 End: 03-10-2022 URINALYSIS, REFLEX MICROSCOPIC URINALYSIS, REFLEX MICROSCOPIC Lab Routine Left hydrocele Chronic epididymitis Weak urinary stream BPH without obstruction/lower urinary tract symptoms Epididymitis Expected: 01/08/2022 (Approximate), Expires: 03/10/2022 [facility] Work Phone: Comment on above: Expected: 01/08/2022 (Approximate), Expires: 03/10/2022 Start: 12-10-2021 End: 02-09-2022 Bacteria identified in Urine by Culture URINE CULTURE Microbiology Routine Urinary tract infection without hematuria, site unspecified Expected: 12/10/2021, Expires: 02/09/2022 [facility] Work Phone: Comment on above: Expected: 12/10/2021 , Expires: 02/09/2022 Start: 11-13-2021 Influenza vaccination INFLUENZA (#1) [facility] Start: 11-12-2021 URODYNAMICS URODYNAMICS Pr ocedures Routine 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 Expected: 11/12/2021 (Approximate) [facility] Work Phone: Comment on above: Expected: 11/12/2021 (Approximate) Start: 08-11-2021 COVID-19 VACCINE (5 - Booster for Pfizer series) COVID-19 VACCINE (5 - Booster for Pfizer series) [facility] Start: 03-15-2021 ADVANCE DIRECTIVE DISCUSSION ADVANCE DIRECTIVE DISCUSSION [facility] Start: 03-15-2021 DEPRESSION ASSESSMENT DEPRESSION ASS ESSMENT [facility] Start: 05-26-2012 3 comp foot exam completed DIABETIC FOOT EXAM [facility] Start: 1998 Hepatitis B Vaccine (1 of 3 - Risk 3-dose series) Hepatitis B Vaccine (1 of 3 - Risk 3-dose series) [facility] Start: 1998 RSV Vaccine (1 - 1-d ose 60+ series) RSV Vaccine (1 - 1-dose 60+ series) [facility] Start: 1988 SHINGRIX VACCINE (1 of 2) SHINGRIX VACCINE (1 of 2) [facility] Start: 1957 Urine microalbumin profile DTAP,TDAP,TD (1 - Tdap) [facility] Start: 1956 Hepatitis B surface antibody level LDL CHOLESTEROL [facility] Start: 1948 Hepatitis B screening URINE ALBUMIN:CREATININE RATIO [facility] Start: 1948 Hepatitis C antibody , confirmatory test DILATED RETINAL EXAM [facility] Start: 1944 PNEUMOCOCCAL: 65+ (1 - PCV) PNEUMOCOCCAL: 65+ (1 - PCV) [facility] Start: 1943 Hemoglobin A1c/Hemoglobin.total in Blood HBA1C [facility] Bacteria identified in Urine by Culture [facility] End: 02-02-2024 Bacteria identified in Urine by Culture URINE CULTURE Microbiology Routine Recurrent UTI 5 Occurrences starting 02/02/2023 until 02/02/2024 [facility] Work Phone: Comment on above: 5 Occurrences starti ng 02/02/2023 until 02/02/2024 Patient Education [facility] Work Phone: Patient referral [facility] Work Phone: End: 01-14-2024 Urinalysis complete panel - Urine URINALYSIS, WITH MICROSCOPIC Lab Routine Recurrent UTI 5 Occurrences starting 02/02/2023 until 01/14/2024 [facility] Work Phone: Comment on above: 5 Occurrences starti ng 02/02/2023 until 01/14/2024 [facility] Immunizations Immunization Date Immunization Notes Care Provider Jens eid 12-01-2022 influenza, high dose seasonal, preservative-free Campbell Naranjo Other [facility] Other 12-19-2021 influenza virus vaccine, split virus (incl. purified surface antigen) Campbell Naranjo Other [facility] Other 12-10-2020 influenza virus vaccine, split virus (incl. purified surface antigen) Campbell Naranjo Other [facility] Other 01-09-2020 influenza virus vaccine, split virus (incl. purified surface antigen) Campbell Naranjo Other [facility] Other 01-14-2018 influenza virus vaccine, split virus (incl. purified surface antigen) Campbell Naranjo Other [facility] Other 12-30-2016 influenza virus vaccine, split virus (incl. purified surface antigen) Campbell Naranjo Other [facility] Other 03-16-2016 influenza virus vaccine, split virus (incl. purified surface antigen) Campbell Naranjo Other [facility] Other 05-01-2015 pneumococcal conjuga te vaccine, 13 valent Campbell Naranjo Other [facility] Other 05-01-2015 pneumococcal Conjuga te, unspecified formulation; Translations: [Need for prophylactic vaccination against Streptococcus pneumoniae (pneumococcus)] Campbell Naranjo Other jigl Other 12-28-2012 tetanus and diphther ia toxoids, adsorbed, preservative free, for adult use (5 Lf of tetanus toxoid and 2 Lf of diphtheria toxoid) Campbell Naranjo Other jigl Other 01-28-2012 diphtheria, tetanus toxoids and acellular pertussis vaccine, unspecified formulation Campbell Naranjo Other jigl Other 01-20-2012 pneumococcal polysaccharide vaccine, 23 valent Campbell Naranjo Other jigl Other 05-18-2011 pneumococcal polysaccharide vaccine, 23 valent Campbell Naranjo Other jigl Other Payers Date Payer Category Payer Self-pay 2016 Unknown KRISTIN GANNARE SUPPLEMENT [id number] 2016-Present [phone] [address] [place] [address] Indemnity [id number] 2003 Medicare MEDICARE MEDICAR E A AND B [id number] 2003-Present [phone] [address] [address] [place] [address] Medicare [id number] 1959 Medicare [id number] 1959 Medicare [id number] 1938 Unknown [id number] 3 1938 Unknown [id number] 3 1938 Unknown [id number] 3 1938 Unknown [id number] 3 1938 Unknown [id number] [id number] 3 1938 Unknown [id number] [id number] 3 1938 Unknown [id number] 3 1938 Unknown [id number] 3 Medicare Medicare Outpatient [id number] Unknown [facility] [id number] Unknown [id number] 1 Social History Date Type Detail Facility Start: 10-24-2009 End: 12-16-2021 Tobacco smoking status NHIS Ex-smoker [facility] End: 03-15-1971 History of tobacco use Current smoker [facility] End: 03-15-1971 History of tobacco use Cigarette Smoker [facility] Start: 10-24-2009 End: 07-28-2022 Cigarettes smoked current (pack per day) - Reported 1.5 [facility] Start: 11-07-2021 End: 12-16-2021 Alcohol intake Current drinker of alcohol (finding) [facility] Start: 1940 Sex Assigned At Not on file C [facility] Start: 10-28-2021 End: 01-08-2022 Exposure to SARS-CoV-2 (event) Not sure [facility] Start: 12-11-2021 End: 12-17-2021 Tobacco smoking status NHIS Never smoked tobacco (finding) [facility] Start: 1940 Sex Assigned At Male F [facility] Start: 12-16-2021 Tobacco use and exposure Smokeless tobacco non-user [facility] Start: 12-16-2021 End: 07-28-2022 Sex Assigned At Located Within [facility] [employer] Other National Score (1-10 0), lower number is lower risk 61 [facility] Medical Equipment Procedure Code Equipment Code [...] to restart Amlodipine. Continue PAUL for now. jigl Other 12-12-2023 Evaluation note* Encounter Date Diagnosis [...] and inserts to prevent callus formation.Fall precautions. jigl Other 12-08-2023 Evaluation note* Encounter Date Diagnosis [...] ulcers. Recommend routine foot care w/ Podiatry jigl Other 11-21-2023 NoteHNO ID: [id number] Author: Leticia Milian APRN.FIELD [employer]AISER Service: ? Author Type: Nurse Practitioner Type: Progress Notes Filed: 02/02/2023 2:13 PM Note Text: Norberto Washington [address] [facility] [address] HISTORY OF PRESENT ILLNESS: Seen 07/28/22 for [...] see lab Duration: BPH w obs/luts, UTI [employer] SYMPTOMS SCORE. 1. INCOMPLETE EMPTYING [...] only if s (more content not included)... [facility]11-21-2023 Miscellaneous Notes* Addendum Note - Leticia Milian APRN.CNP - 02/02/2023 2:16 PM ESTAddended by: LETICIA MILIAN on: 02/02/2023 02:16 PM Modules accepted: Orders documented in this encounterC[facility]11-21-2023 History of Present illness Narrative* Leticia Milian APRN.CNP - 02/02/2023 1:40 PM EST Norberto Washington [address] [facility] [address] HISTORY OF PRESENT ILLNESS: Seen 07/28/22 for [...] see lab Duration: BPH w obs/luts, UTI [employer] SYMPTOMS SCORE. 1. INCOMPLETE EMPTYING [...] Making Level: 4 - Moderate Leticia Milian APRN.[employer] documented in this encounterC[facility]07-11-2023 Evaluation note* Encounter Date Diagnosis Assessment [...] w/ acute infection Requires no additional treatment jigl Other 07-06-2023 Evaluation note* Encounter Date Diagnosis [...] exercise for 30 minutes, 3-5 times weekly. jigl Other 05-16-2023 NoteHNO ID: [id number] Author: Leticia Milian APRN.[employer] Service: ? Author Type: Nurse Practitioner Type: Progress Notes Filed: 07/30/2022 4:34 PM Note Text: Norberto Washington [address] [facility] [address] HISTORY OF PRESENT ILLNESS: Seen 01/20/22 for [...] 07/20/22=neg UA 07/20/22=leuk esterase 250, wbc 11-25 [employer] SYMPTOMS SCORE. 1. INCOMPLETE EMPTYING [...] obs/luts, AUA, PVR Med (more content not included)...[facility]04-06-2023 Evaluation note* Encounter Date Diagnosis Assessment [...] w/ antibiotics and treatment of urinary retention jigl Other 03-21-2023 NotePROCEDURE: XR FOOT LT MIN [...] Electronically authenticated by: SAMY TORRES Date: 2022-06-02 15:48[facility]03-21-2023 NotePROCEDURE: XR FOOT LT MIN 3 VIEWS, [...] Electronically authenticated by: SAMY TORRES Date: 2022-06-02 15:48[facility]01-25-2023 Evaluation note* Encounter Date Diagnosis Assessment Notes [...] lesion was treated w/ cryotherapy w/o complications jigl Other 01-06-2023 Evaluation note* Encounter Date Diagnosis [...] Mar, Hesitancy of micturition (ICD-10 - R39.11) jigl Other 10-27-2022 History of Present illness Narrative* Zuleika Hackett - 01/08/2022 8:20 AM EDT Norberto Washington [address] [place] [id number] Mr. Washington presents with chief complaints of: Enlarged L testicle. ED 11/07/21: PVR 179 cc, refused a catheter, scheduled to undergo a cystoscopy in [place] but was cancelled due to his urologist [...] epididymitis Hydroceles: None Spermatoceles: None Varicoceles: None [employer] SYMPTOMS SCORE. Date 01/08/2022 1. [...] complete. Leonard Dugan M.D. documented in this encounterC[facility]10-05-2022 Hospital Discharge instructions Additional Instructions Continue taking Flomax as prescribed Avoid drinking any fluids several hours before bed Call your urologist tomorrow for a follow-up appointment Return if you are unable to urinate, develop blood in your urine, abdominal pain, feversOhio[facility] Ctr Work Phone: [phone] History of Present illness Narrative* Leonard Dugan MD - 12/16/2021 2:51 PM EDT Norberto Washington [address] [place] [address] HISTORY OF PRESENT ILLNESS: ED 11/07/21: PVR 179 cc, refused a catheter, scheduled to undergo a cystoscopy in [place] but was cancelled due to his urologist [...] Moderate Leonard Dugan MD documented in this encounterC[facility]10-03-2022 Miscellaneous Notes* Telephone Encounter - Valente Bell LPN - 12/15/2021 3:58 PM EDT Called and spoke to patient regarding message below. Patient states understanding to information provided. No further action required at this time. * Telephone Encounter - Leticia Milian APRN.CNP - 12/15/2021 10:13 AM EDT Please call and confirm that pt received [employer] message to start new script sent for antibiotic. Thanks Leticia MONDRAGON documented in this encounterC[facility]09-29-2022 Miscellaneous Notes* Telephone Encounter - Valente [...] be draining normally now. documented in this encounterC[facility]09-28-2022 Nurse Note* Stephanie Kaur RN - [...] hyperplasia with urinary retention documented in this encounterC[facility]09-27-2022 History of Present illness Narrative* Leonard Dugan MD - 12/09/2021 5:05 PM EDT [facility] PHYSICIAN INTERPRETATION: Urodynamics [...] contractility Leonard Dugan MD documented in this encounterC[facility]09-27-2022 Nurse Note* Stephanie Kaur RN - 12/09/2021 3:57 PM EDT [facility] URODYNAMICS LAB URODYNAMIC [...] of incomplete bladder emptying documented in this encounterC[facility]09-26-2022 Miscellaneous Notes* Telephone Encounter - Stephanie Kaur RN - 12/08/2021 4:11 PM EDT LM for patient to reschedule catheter change for tomorrow. Last changed 11/26/21 in ED. Will be due for change on 12/23/21. Stephanie Kaur R.N. documented in this encounterC[facility] Clinic [facility]09-12-2022 Miscellaneous Notes* Telephone Encounter - Sonia [...] has been busy with his spouse at [facility] having to care for her needs and hadn't called earlier when it first started on Wednesday. He was hoping it would clear up but it has not, urine is between [place] tint & Brown and he does see small clots. Patient does have pain at the end of his Penis slight swelling noted (he has been applying Neosporin) Denies difficulty with urine draining into Hamilton bag, he does not have back pain Please advise documented in this encounterC[facility]08-31-2022 Nurse Note* Stephanie Kaur RN - [...] 0 on a 0-10 pain scale. Stephanie Kuar RN AMBULATORY PATIENT EDUCATION THE FOLLOWING WAS EVALUATED Motivation To Learn: Eager Family/Significant Other Support: None - Unavailable/disinterested Cognitive Ability: Alert/Oriented Method of Instruction: Individual instruction The Following Influencing Factors Were Barriers To This Education Session: None The Following Physical Limitations Were Barriers To This Education Session: None Instruction Provided To: Patient Sap Pi Developer Present: not applicable Discipline: Nursing Learning Topic: [...] supervision. Stephanie Kaur RN documented in this encounterCleveland Clinic [facility]08-31-2022 Procedure note* Leonard Dugan MD - 11/12/2021 11:00 AM EDTProcedure(s): CYSTOSCOPY Pre-Procedure Diagnose(s): BPH with obstruction/lower urinary tract symptoms Post-Procedure Diagnose(s): BPH with obstruction/lower urinary tract symptoms PROCEDURE: CYSTOSCOPY INDICATIONS: ED 11/07/21: PVR 179 cc, refused a catheter, scheduled to undergo a cystoscopy in [place] but was cancelled due to his urologist [...] complete. Leonard Dugan M.D. documented in this encounterC[facility]08-29-2022 History of Present illness Narrative* Leonard Dugan MD - 11/10/2021 12:11 PM EDT Cysto with uroflow 11-12-21 ED 11/07/21: PVR 179 cc, refused a catheter, scheduled to undergo a cystoscopy in [place] but was cancelled due to his urologist was sick Pt underwent TURP x2 within a week AUA= 3-5 wach ROSAMARIA 11/10/21 - 10 gm, rubbery, no nodules US 11/07/21:= mildly complex renal cysts UA and culture 11-07-21= -ve May need UDS based on cysto [facility]* Diagnosis BPH with obstruction/lower urinary tract symptoms- Primary Hypertrophy of prostate with urinary obstruction and other lower urinary tract symptoms (LUTS) Benign prostatic hyperplasia with urinary retention documented in this encounter [facility]* Diagnosis Urinary frequency- Primary Urinary urgency Urgency of urination Urinary straining Straining on urination Feeling of incomplete bladder emptying Incomplete bladder emptying documented in this encounter [facility]* Diagnosis Urinary tract infection without hematuria, site unspecified- Primary Feeling of incomplete bladder emptying Incomplete bladder emptying Benign prostatic hyperplasia with urinary retention documented in this encounter [facility] noteNo assessment information availableMercy Health St. [facility] Work Phone: Evaluation note* Diagnosis Retention of urine- Primary Retention of urine, unspecified Flaccid bladder Neurogenic bladder, NOS documented in this encounter [facility]* Diagnosis Chronic epididymitis- Primary Left hydrocele Hydrocele, unspecified Weak urinary stream Slowing of urinary stream BPH without obstruction/lower urinary tract symptoms Hypertrophy of prostate without urinary obstruction and other lower urinary tract symptoms (LUTS) Epididymitis Orchitis and epididymitis, unspecified documented in this encounter [facility] HospitalEvaluation noteNo InformationNortOSS Health [facility] Other Evaluation note* Diagnosis BPH with obstruction/lower urinary tract symptoms- Primary Hypertrophy of prostate with urinary obstruction and other lower urinary tract symptoms (LUTS) Recurrent UTI Urinary tract infection, site not specified Weak urinary stream Slowing of urinary stream documented in this encounter [facility] general Narrative - Reported* Type Description Date [...] cystoscopy 09.20.2019 Hospitalization History see surgical history Located Within [facility] Other Reason for referral (narrative)* Outpatient Procedure (Routine) - Pending Review Specialty Diagnoses / Procedures Referred By Marce dillon Referred To Contact [facility] Diagnoses 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 Procedures URODYNAMICS MAGGY POST-VOIDING RESIDUAL URINE&/BLADDER CAP Leonard Dugan MD [address] [place] [address] [facility] [address] [place] [address] Referral ID Status Reason Start Date Expiration Date Visits Requested Visits Authorized [id number] Pending Review Auto-Generat ed Referral 11/12/2021 11/12/2022 1 1 [facility] Summary Purpose Family History No Family [...] Provider Specialty Internal Me dicine Referred Organization [facility] Referred Provider Jhon Tejada Referred Address [address], [place],[address] Referred Provider Specialty Podiatry - S urgical [...] and content) DATE CREATED AUTHOR 11/04/2021 [facility] DATE CREATED AUTHOR AUTHOR'S ORGANIZ ATION 12/13/2021 [facility] DATE CREATED AUTHOR AUTHOR'S ORGANIZ ATION 06/25/2022 [facility] DATE CREATED AUTHOR AUTHOR'S ORGANIZ ATION 01/14/2023 [facility] DATE CREATED AUTHOR AUTHOR'S ORGANIZ ATION 02/04/2023 [facility] Source Comments (unrecognize d section and content) In the event this informatio n is protected by the Federal Confidentiality of Alcohol and Drug Abuse Patient Records regulations: The Federal rules restrict any use of the information to criminally investigate or prosecute any alcohol or drug abuse patient.[facility] HospitalIn the event this information is protected by the Federal Confidentiality of Alcohol and Drug Abuse Patient Records regulations: The Federal rules restrict any use of the information to criminally investigate or prosecute any alcohol or drug abuse patient.[facility] HospitalIn the event this information is protected by the Federal Confidentiality of Alcohol and Drug Abuse Patient Records regulations: The Federal rules restrict any use of the information to criminally investigate or prosecute any alcohol or drug abuse patient.[facility] HospitalIn the event this information is protected by the Federal Confidentiality of Alcohol and Drug Abuse Patient Records regulations: The Federal rules restrict any use of the information to criminally investigate or prosecute any alcohol or drug abuse patient.[facility] HospitalIn the event this information is protected by the Federal Confidentiality of Alcohol and Drug Abuse Patient Records regulations: The Federal rules restrict any use of the information to criminally investigate or prosecute any alcohol or drug abuse patient.[facility] HospitalIn the event this information is protected by the Federal Confidentiality of Alcohol and Drug Abuse Patient Records regulations: The Federal rules restrict any use of the information to criminally investigate or prosecute any alcohol or drug abuse patient.[facility] HospitalIn the event this information is protected by the Federal Confidentiality of Alcohol and Drug Abuse Patient Records regulations: The Federal rules restrict any use of the information to criminally investigate or prosecute any alcohol or drug abuse patient.[facility] HospitalIn the event this information is protected by the Federal Confidentiality of Alcohol and Drug Abuse Patient Records regulations: The Federal rules restrict any use of the information to criminally investigate or prosecute any alcohol or drug abuse patient.[facility] HospitalIn the event this information is protected by the Federal Confidentiality of Alcohol and Drug Abuse Patient Records regulations: The Federal rules restrict any use of the information to criminally investigate or prosecute any alcohol or drug abuse patient.[facility] HospitalIn the event this information is protected by the Federal Confidentiality of Alcohol and Drug Abuse Patient Records regulations: The Federal rules restrict any use of the information to criminally investigate or prosecute any alcohol or drug abuse patient.[facility] HospitalIn the event this information is protected by the Federal Confidentiality of Alcohol and Drug Abuse Patient Records regulations: The Federal rules restrict any use of the information to criminally investigate or prosecute any alcohol or drug abuse patient.[facility] ClinicIn the event this information is protected by the Federal Confidentiality of Alcohol and Drug Abuse Patient Records regulations: The Federal rules restrict any use of the information to criminally investigate or prosecute any alcohol or drug abuse patient.[facility] Care Teams (unrecognized sec tion and content) Team Status: Active Member Role Status Dates Campbell Naranjo , Primary Care Provider Active Team Status: Inactive Member Role Status Dates Campbell Naranjo , Primary Care Provider Active Low Carter DO Emergency Provider Active Coil Tester Relationship Specialty Start Date End Date Ran Lees Jr. PCP - General 10/10/09 Coil Tester Relationship Specialty Start Date End Date Ran Lees Jr. PCP - General 10/10/09 Coil Tester Relationship Specialty Start Date End Date Ran Lees Jr. PCP - General 10/10/09 Coil Tester Relationship Specialty Start Date End Date Campbell Naranjo Dakota, DO [address] [facility] [address] PCP - General Internal Medicine 11/26/21 Coil Tester Relationship Specialty Start Date End Date Campbell Naranjo, DO [address] [place] [address] PCP - General Internal Medicine 11/26/21 Coil Tester Relationship Specialty Start Date End Date Campbell Naranjo, DO [address] [place] [address] PCP - General Internal Medicine 11/26/21 Coil Tester Relationship Specialty Start Date End Date Campbell Naranjo Dakota, DO [address] [place] [address] PCP - General Internal Medicine 11/26/21 Team Status: Inactive Member Role Status Dates Campbell Naranjo DO Primary Care Provider Active Davis Cervantes MD Emergency Provider Active Coil Tester Relationship Specialty Start Date End Date Campbell Naranjo, DO [address] [place] [address] PCP - General Internal Medicine 11/26/21 Team Status: Inactive Member Role Status Dates Campbell Naranjo , Primary Care Provider Active Sam Simons , Emergency Provider Active Team Status: Inactive Member Role Status Dates Campbell Naranjo , DO Primary Care Provider Active Sam Simons , DO Attending Provider Active Coil Tester Relationship Specialty Start Date End Date Campbell Naranjo, DO [address] [place] [address] PCP - General Internal Medicine 11/26/21 Coil Tester Relationship Specialty Start Date End Date Campbell Naranjo, DO [address] [place] [address] PCP - General Internal Medicine 11/26/21 Coil Tester Relationship Specialty Start Date End Date Campbell Naranjo, DO [address] [place] [address] PCP - General Internal Medicine 11/26/21 Reason for Visit (unrecogniz ed section and content) Toe Reason Comments Cystoscopy-1 Reason Comments Hamilton Cath [...] alternate sectionNo InformationNo InformationNo InformationNo InformationNo InformationNo Information FOR RECORDS [...] BE BASED ON THE PRIMARY CLINICAL RECORDS. [facility] [employer] [facility]. provides no warranty or guarantee of the accuracy or completeness of information in this document.
--- NOTE | 2023-04-17 16:44 | ED.GENADUL1 ---
HPI - General Adult General Chief complaint: Recheck/Abnormal Lab/Rx Stated complaint: Wound Check Time Seen by Provider: 04/17/23 16:30 Source: patient Mode of arrival: walk-in Limitations: no limitations History of Present Illness HPI narrative: Patient is an 83-year-old male with a history of diabetes who returns to the emergency department for concern of worsening foot infection. Patient was seen in this emergency department approximately 5 days ago for redness and drainage from the right fifth toe extending into the foot. He had unremarkable labs and was given IV antibiotics with discharge home on clindamycin and doxycycline. He is currently under the care of Dr. Freedom Kaba's office and receives regular wound care for a diabetic foot ulcer to the right fifth toe. He states the ulcer itself has improved over time and he receives collagen to the area. He states in the last day he feels as though the redness is getting worse. He has had no objective fevers or vomiting. At time of evaluation in the ER, he admits that he has not been taking the clindamycin as prescribed and has only been taking one third of the pills that he should be taking daily for the last 4 to 5 days. Related Data Home Medications Medication Instructions Recorded Confirmed gabapentin 300 mg capsule 300 mg PO TID 03/08/23 04/17/23 glipizide 2.5 mg tablet, extended 2.5 mg PO QAM 03/08/23 04/17/23 release 24 hr lisinopril 20 mg tablet 20 mg PO .qhs 03/08/23 04/17/23 lovastatin 40 mg tablet 40 mg PO .qhs 03/08/23 04/17/23 tamsulosin 0.4 mg capsule 0.4 mg PO Q24H 03/08/23 04/17/23 collagenase clostridium histo. 250 1 applic topical BID 04/12/23 04/17/23 unit/gram topical ointment (Santyl) Previous Rx's Medication Instructions Recorded clindamycin HCl 150 mg capsule 450 mg (3 x 150 mg) PO TID 7 days 04/12/23 #63 caps doxycycline hyclate 100 mg capsule 100 mg PO BID 7 days #14 caps 04/12/23 Allergies Allergy/AdvReac Type Severity Reaction Status Date / Time ciprofloxacin [From Cipro] Allergy Severe Verified 04/12/23 06:23 Sulfa (Sulfonamide Allergy Severe Verified 04/12/23 06:23 Antibiotics) Review of Systems ROS Constitutional Denies: fever or chills Ears, nose, mouth, and throat Denies: throat pain Cardiovascular Denies: chest pain Respiratory Denies: shortness of breath or cough Gastrointestinal Denies: nausea or vomiting Integumentary/Breast Denies: rash Neurological Denies: headache Hematologic/Lymphatic Denies: easy bruising or easy bleeding [facility] Medical History (Updated 04/17/23 @ 17:18 by MOMO Kirkland) HLD (hyperlipidemia) ?E78.5 - Hyperlipidemia, unspecified (ICD-10) Diabetic infection of right foot ?E11.628 - Type 2 diabetes mellitus with other skin complications (ICD-10) ?L08.9 - Local infection of the skin and subcutaneous tissue, unspecified (ICD-10) Neuropathy ?G62.9 - Polyneuropathy, unspecified (ICD-10) Fracture, ankle ?S82.899A - Other fracture of unspecified lower leg, initial encounter for closed fracture (ICD-10) Benign prostate hyperplasia ?N40.0 - Benign prostatic hyperplasia without lower urinary tract symptoms (ICD-10) Hypertension ?I10 - Essential (primary) hypertension (ICD-10) Diabetes ?E11.9 - Type 2 diabetes mellitus without complications (ICD-10) Surgical History H/O rotator cuff surgery ?Z98.890 - Other specified postprocedural states (ICD-10) History of toe surgery ?Z98.890 - Other specified postprocedural states (ICD-10) History of appendectomy ?Z90.49 - Acquired absence of other specified parts of digestive tract (ICD-10) Hx of tonsillectomy ?Z90.89 - Acquired absence of other organs (ICD-10) Family History Mother Family history of cancer Father Family history of stroke Social History Within the past year, how often did you have a drink containing alcohol: never Score interpretation: A score less than 4 is consistent with normal alcohol consumption. 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 Known occupational exposures/hazards: No Highest level of school completed/degree received: Bachelor's degree Are you now , , , , never or living with a partner: Little interest or pleasure in doing things: not at all Feeling down, depressed, or hopeless: not at all Feel stressed/tense/nervous/anxious/difficulty sleeping: not at all Do you think of yourself as: straight/heterosexual Gender Identity: male Exam Narrative Exam Narrative: Gen.: Awake, alert, in no distress Head: Normocephalic, atraumatic ENT: Moist mucous membranes Respiratory: No respiratory distress Extremities: Right foot with blanching erythema and a faint red streak over the dorsum of the right foot extending to the midfoot. Right fifth toe is edematous with a 1.5 cm ulcer noted laterally of the foot. Minimal serosanguineous drainage noted with movement of the toes. Psych: Normal mood and affect Neuro: No focal neuro deficit Skin: Warm, dry Constitutional Vital Signs, click to edit/add: Last Vital Signs Temp 98.2 F 04/17/23 16:29 Pulse 92 H 04/17/23 16:29 Resp 18 04/17/23 16:29 BP 156/80 H 04/17/23 16:29 Pulse Ox 99 04/17/23 16:29 O2 Del Method Room Air 04/17/23 16:29 Course Vital Signs Vital signs: Vital Signs Temperature 98.2 F 04/17/23 16:29 Pulse Rate 92 H 04/17/23 16:29 Respiratory Rate 18 04/17/23 16:29 Blood Pressure 156/80 H 04/17/23 16:29 Pulse Oximetry 99 04/17/23 16:29 Oxygen Delivery Method Room Air 04/17/23 16:29 Temperature 98.2 F 04/17/23 16:29 Pulse Rate 92 H 04/17/23 16:29 Respiratory Rate 18 04/17/23 16:29 Blood Pressure 156/80 H 04/17/23 16:29 Pulse Oximetry 99 04/17/23 16:29 Oxygen Delivery Method Room Air 04/17/23 16:29 Medical Decision Making MDM Narrative Medical decision making narrative: Patient was initially treated with IV clindamycin as he has skipped doses of this over the last several days. Labs were obtained. Patient had an x-ray of his foot done several days ago in this ER. His vital signs are within normal limits. He declined any medication for pain. I discussed the case with Dr. Freedom Kaba who is in agreement that the safest course of action is to bring the patient into the hospital for IV antibiotics and further management. He requested Betadine be placed over the ulcer which was done by nursing staff prior to admission. I discussed the case with Dr. Kelley for hospitalist service who accepted the admission. Dr. Tejada requested we switch the patient to Zosyn and vancomycin in the hospital. This was related to Dr. Kelley. Patient is agreeable to staying Medical Records Medical records reviewed: Yes I reviewed the patient's medical records Lab Data Lab results reviewed: Yes I reviewed the patient's lab results Labs: Lab Results 04/17/23 Range/Units 16:50 WBC 11.8 H (4.0-11.0) 10^3/uL RBC 3.76 L (4.70-6.10) 10^6/uL Hgb 11.7 L (14.0-18.0) g/dL Hct 34.7 L (42.0-54.0) % MCV 92.3 (80.0-94.0) fL MCH 31.1 (25.9-34.0) pg MCHC 33.7 (29.9-35.2) g/dL RDW 11.3 (11.0-15.0) % Plt Count 248 (150-450) 10^3/uL MPV 8.7 L (9.5-13.5) fL Neut % (Auto) 69.2 (43.0-75.0) % Lymph % (Auto) 17.1 L (20.5-60.0) % Loving % (Auto) 11.8 (1.7-12.0) % Eos % (Auto) 1.0 (0.9-7.0) % Baso % (Auto) 0.3 (0.2-2.0) % Neut # (Auto) 8.2 H (1.4-6.5) 10^3/uL Lymph # (Auto) 2.0 (1.2-3.8) 10^3/uL Loving # (Auto) 1.4 H (0.3-0.8) 10^3/uL Eos # (Auto) 0.1 (0.0-0.7) 10^3/uL Baso # (Auto) 0.0 (0.0-0.1) 10^3/uL Abs Immat Gran (auto) 0.07 H (0.00-0.03) 10^3/uL Imm/Tot Granulo (auto) 0.6 H (0.0-0.5) % Discharge Plan Discharge Chief Complaint: Recheck/Abnormal Lab/Rx Clinical Impression: Diabetic ulcer of right fifth toe, Cellulitis of foot, right Patient Disposition: Admitted As Inpatient Time of Disposition Decision: 17:19 Prescriptions / Home Meds: No Action lisinopril 20 mg tablet 20 mg PO .qhs tamsulosin 0.4 mg capsule 0.4 mg PO Q24H glipizide 2.5 mg tablet extended release 24hr 2.5 mg PO QAM gabapentin 300 mg capsule 300 mg PO TID lovastatin 40 mg tablet 40 mg PO .qhs Santyl 250 unit/gram ointment 1 applic TOPICAL BID clindamycin HCl 150 mg capsule 450 mg PO TID 7 Days Qty: 63 0RF Rx Instructions: ICD 10 = L03.115 doxycycline hyclate 100 mg capsule 100 mg PO BID 7 Days Qty: 14 0RF Referrals: Campbell Naranjo DO [Primary Care Provider] - 1 week
[2023-04-17] MEDS: CLINDAMYCIN PHOSPHATE/D5W 600 MG/50 ML PIGGYBACK 100 MG IV (16:58)
[2023-04-17 17:02] LABS: Basophils Percent Auto 0.3 % (0.2-2.0); Eosinophils Absolute Auto 0.1 10^3/uL (0.0-0.7); Hematocrit 34.7 % (42.0-54.0); Hemoglobin 11.7 g/dL (14.0-18.0); Immature Granulocytes Abs Auto 0.07 10^3/uL (0.00-0.03); Immature Granulocytes Pct Auto 0.6 % (0.0-0.5); Lymphocytes Percent Auto 17.1 % (20.5-60.0); Mean Corpuscular HGB Conc 33.7 g/dL (29.9-35.2); Mean Corpuscular Hemoglobin 31.1 pg (25.9-34.0); Mean Corpuscular Volume 92.3 fL (80.0-94.0); Mean Platelet Volume 8.7 fL (9.5-13.5); Monocytes Absolute Auto 1.4 10^3/uL (0.3-0.8); Monocytes Percent Auto 11.8 % (1.7-12.0); Neutrophils Absolute Auto 8.2 10^3/uL (1.4-6.5); Neutrophils Percent Auto 69.2 % (43.0-75.0); Platelet Count 248 10^3/uL (150-450); Red Blood Count 3.76 10^6/uL (4.70-6.10); Red Cell Distribution Width 11.3 % (11.0-15.0); White Blood Count 11.8 10^3/uL (4.0-11.0)
[2023-04-17 17:18] LABS: Anion Gap 13.8; BUN Creatinine Ratio 21.2; Calcium 8.5 mg/dL (8.5-10.1); Carbon Dioxide 25.8 mmol/L (21.0-32.0); Chloride 98 mmol/L (98-107); Estimated GFR (African America 60 (>=60); Estimated GFR (Non-African Ame 49 (>=60); Glucose 109 mg/dL (74-106); Potassium 4.6 mmol/L (3.5-5.1); Sodium 133 mmol/L (136-145)
[2023-04-17 17:22] LABS: C Reactive Protein 2.04 mg/dL (<=0.50)
[2023-04-17 17:24] LABS: Erythrocyte Sedimentation Rate 31 mm/hr (<=20)
[2023-04-17 18:24] LABS: Lactate/Lactic Acid 0.8 mmol/L (0.4-2.0); Troponin I High Sensitivity 6.3 pg/mL (4.0-76.1)
[2023-04-17 18:33] LABS: Magnesium 2.2 mg/dL (1.8-2.4); Thyroid Stimulating Hormone 4.601 uIU/mL (0.358-3.740)
--- OUTSIDE RECORDS SUMMARY | 2023-04-17 19:32 | XMS_ITS | CCD ---
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 Primary Care Provider Unava ilable RAN LEES JR Primary Care Unavailable KEELY GUTIERREZ Attending Unavailable CAMPBELL NARANJO Primary Care Unavailable Campbell Naranjo DO Primary Care Provider DO Campbell Naranjo Primary Care Provider MD Davis Cervantes Emergency Provider [phone] DO Sam Simons Emergency Provider DO Sam Simons Attending Provider [phone] Campbell Naranjo Unavailable DR CAMPBELL NARANJO Primary [...] Allergy 08-01-19 10 GI Upset, [facility] (20 sources) Sulfonamides (Antibiotic); Translations: [SULFA (SULFONAMIDE ANTIBIOTICS)] Propensity to adverse reactions 08-01-19 10 Rash, [facility] (1 source) Ciprofloxacin Drug Allergy [facility] (1 source) Sulfonamides (Antibiotic) Drug allergy (disorder) [facility] (1 source) Allergies Reconciled Propensity to adverse reactions Unknown [email or web address] Other (1 source) patient allergy list reviewed by nurse or physicia Propensity to adverse reactions 05-20-19 18 Comment:Done [email or web address] Other (1 source) Ciprofloxacin Drug Allergy 12-12-19 [facility] Repository (1 source) Sulfonamides (Antibiotic) Drug allergy (disorder) 12-12-19 [facility] Repository Medications Current Medications Medication Drug Class(es) [...] Comment on above: Take 1 capsule by [facility] once daily. Take one cap. 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 1. INCOMPLETE EMPTYING [...] Stream (imp (more content not included)... Normal [facility] Bacteria Ur Culton 3 Bacteria identified Cx Nom (U) CULTURE, URINE: No growth (<1,000 CFU/ml) Normal [facility] Comment on above: Performed By: #### 6 30-4 #### [facility] CLIA [id number] [address] [place] [address] STATES OF [facility] CNOVon 07-28-2022 CNOV Office Visit (UROLLN ) NORBERTO WASHINGTON ([id number]) 1940 M Date Time Provider Department 07/28/22 1:30 PM LETICIA MILIAN During your visit today, we recorded the following information about you: Pulse Blood pressure Weight 68/minute 142/55 100.7 kg Leticia Milian APRN.[facility] 07/30/2022 4:34 PM Addendum Norberto Washington [address] [facility] [address] HISTORY OF PRESENT ILLNESS: Seen 01/20/22 for [...] 07/20/22=neg UA 07/20/22=leuk esterase 250, wbc 11-25 [employer] SYMPTOMS SCORE. 1. INCOMPLETE EMPTYING [...] -DM UTI (more content not included)... Normal [facility] Bacteria Ur Culton 3 Bacteria identified Cx Nom (U) CULTURE, URINE: No growth (<1,000 CFU/ml) Normal [facility] Comment on above: Performed By: #### 6 30-4 #### [facility] CLIA [id number] [address] [place] [address] [place] Urinalysis complete panel (U )on 07-20-2022 Bilirubin Ql (U) Negative Normal Negative [facility] Comment on above: Order Comment: Speci men Type: URINE SPECIMEN Ordering Facility: [facility] Address: [address] [address] Performed By: #### 2 4356-8 #### [facility] CLIA [id number] [facility] [place] [address] [place] Clarity (Unsp spec) Clear Normal Clear [facility] Comment on above: Order Comment: Speci men Type: URINE SPECIMEN Ordering Facility: [facility] Address: [address] [address] Performed By: #### 2 4356-8 #### [facility] CLIA [id number] [address] [place] [address] [place] Color (U) Yellow Normal Yellow [facility] Comment on above: Order Comment: Speci men Type: URINE SPECIMEN Ordering Facility: [facility] Address: [address] [address] Performed By: #### 2 4356-8 #### [facility] CLIA [id number] [address] [place] [address] [place] Epithelial cells LM.HPF (Urine sed) [#/Area] Few Normal [facility] Comment on above: Order Comment: Speci men Type: URINE SPECIMEN Ordering Facility: [facility] Address: [address] [place] [address] Performed By: #### 2 4356-8 #### [facility] CLIA [id number] [address] [place] [address] [place] Glucose Test strip (U) [Mass/Vol] Negative Normal Trace, Negative [facility] Comment on above: Order Comment: Speci men Type: URINE SPECIMEN Ordering Facility: [facility] Address: [address] [place] [address] Performed By: #### 2 4356-8 #### [facility] CLIA [id number] [address] [place] [address] [place] Hemoglobin Ql (U) Negative Normal Negative, Trace [facility] Comment on above: Order Comment: Speci men Type: URINE SPECIMEN Ordering Facility: [facility] Address: [address] Performed By: #### 2 4356-8 #### [facility] CLIA [id number] [address] [place] [address] [place] Ketones Ql (U) Negative Normal Trace, Negative [facility] Comment on above: Order Comment: Speci men Type: URINE SPECIMEN Ordering Facility: [facility] Address: [address] Performed By: #### 2 4356-8 #### [facility] CLIA [id number] [address] [place] Leukocyte esterase Test strip Ql (U) 250 Ayaz/uL Abnormal Negative, 25 Ayaz/uL [facility] Comment on above: Order Comment: Speci men Type: URINE SPECIMEN Ordering Facility: [facility] Address: [address] [address] Performed By: #### 2 4356-8 #### [facility] CLIA [id number] [address] [place] [address] [place] Nitrite Ql (U) Negative Normal Negative [facility] Comment on above: Order Comment: Speci men Type: URINE SPECIMEN Ordering Facility: [facility] Address: [address] [place] [address] Performed By: #### 2 4356-8 #### [facility] CLIA [id number] [address] [place] [address] [place] pH (U) 5.5 [pH] Normal 5.0-8.0 [facility] Comment on above: Order Comment: Speci men Type: URINE SPECIMEN Ordering Facility: [facility] Address: [address] [place] [address] Performed By: #### 2 4356-8 #### [facility] CLIA [id number] [address] [place] [address] [place] Protein (U) [Mass/Vol] Negative Normal Trace , Negative [facility] Comment on above: Order Comment: Speci men Type: URINE SPECIMEN Ordering Facility: [facility] Address: [address] [place], [place] [address] Performed By: #### 2 4356-8 #### [facility] CLIA [id number] [address] [place] [address] [place] RBC LM.HPF (Urine sed) [#/Area] 0-3 /HPF Normal 0-3 /HPF [facility] Comment on above: Order Comment: Speci men Type: URINE SPECIMEN Ordering Facility: [facility] Address: [address] [place] [address] Performed By: #### 2 4356-8 #### [facility] CLIA [id number] [address] [place] [address] [place] Specific gravity (U) [Rel density] 1.016 Normal 1.005-1.030 [facility] Comment on above: Order Comment: Speci men Type: URINE SPECIMEN Ordering Facility: [facility] Address: [address] [place] [address] Performed By: #### 2 4356-8 #### [facility] CLIA [id number] [address] [place] [address] [place] Urobilinogen Ql (U) Negative Normal Negative [facility] Comment on above: Order Comment: Speci men Type: URINE SPECIMEN Ordering Facility: [facility] Address: [address] [place] [address] Performed By: #### 2 4356-8 #### [facility] CLIA [id number] [address] [place] [address] [place] WBC LM.HPF (Urine sed) [#/Area] 11-25 /HPF Abnormal 0-5 /HPF [facility] Comment on above: Order Comment: Speci men Type: URINE SPECIMEN Ordering Facility: [facility] Address: [address] [place] [address] Performed By: #### 2 4356-8 #### [facility] CLIA [id number] [address] [place] [address] [place] GLYCOHEMOGLOBIN A1Con 2022 ADA RECOMMENDATION SEE BELOW Normal [facility] Comment on above: Result Comment: ADA RECOMMENDED LIMIT 4.0 - 6.0 ADA THERAPEUTIC TARGET < 7.0 ACTION SUGGESTED > 7.0 Performed By: #### A 1C #### [facility] [address] [address] [address] Juan Pablo Kaminski Glucose [Mass/Vol] 128 mg/dL Normal [facility] Comment on above: Performed By: #### A 1C #### [facility] [address] [address] [address] Juan Pablo Kaminski HbA1c (Bld) [Mass fraction] 6.1 % Normal 4.5-6.2 [facility] Comment on above: Performed By: #### A 1C #### [facility] [address] [place] [address] Dr. Juan Pablo Kaminski A1C with Estimated Average G luon 03-20-2022 A1C with Estimated Average Glu 128 [facility] [email or web address] Other A1C with Estimated Average Glu [facility] [employer] Other HbA1c (Bld) [Mass fraction] 6.1 % Normal 4.5-6.2 [facility] [employer] Other Comment on above: Performed By: #### A 1C #### [facility] [address] [place] [address] Dr. Juan Pablo Kaminski GLYCOHEMOGLOBIN A1Con 2022 ADA RECOMMENDATION SEE BELOW Normal [facility] Comment on above: Result Comment: ADA RECOMMENDED LIMIT 4.0 - 6.0 ADA THERAPEUTIC TARGET < 7.0 ACTION SUGGESTED > 7.0 Performed By: #### A 1C #### [facility] [address] [place] [address] Dr. Juan Pablo Kaminski Glucose [Mass/Vol] 128 mg/dL Normal [facility] Comment on above: Performed By: #### A 1C #### [facility] [address] [place] [address] Dr. Juan Pablo Kaminski US SCROTUM W [...] by: LEIDY PEREIRA Date: 2021-12-25 18:32 Normal [facility] Urine culture routineOrdered By: Sam Simons on 12-19-2021 Bacteria identified Cx Nom (U) Pseudomonas aeruginosa [facility] Automated erythrocytes count in urine sediment (number/area)Ordered By: Sam Simons on 12-17-2021 RBC Auto (Urine sed) [#/Area] 1-2 [HPF] 0-4 [facility] Automated leukocytes count i n urine sediment (number/area)Ordered By: Sam Simons on 12-17-2021 WBC Auto (Urine sed) [#/Area] 20-49 [HPF] 0-4 [facility] Bilirubin Test strip Ql (U)O rdered By: Sam Simons on 12-17-2021 Bilirubin Ql (U) Negative Negative [facility] Color Auto (U)Ordered By: Micheal Simons on 12-17-2021 Color (U) Yellow Yellow [facility] Ketones Auto test strip (U) [Mass/Vol]Ordered By: Sam Simons on 12-17-2021 Ketones (U) [Mass/Vol] Negative Negative [facility] - UrinalysisOrder ed By: Sam Simons on 12-17-2021 Hyaline casts LM Ql (Urine sed) 0-8 [LPF] 0-8 [facility] Nitrite Test strip Ql (U)Ord ered By: Sam Simons on 12-17-2021 Nitrite Ql (U) Negative Negative [facility] Protein Auto test strip (U) [Mass/Vol]Ordered By: Sam Simons on 12-17-2021 Protein (U) [Mass/Vol] Negative Negative [facility] Specific gravity Auto test s trip (U) [Rel density]Ordered By: Sam Simons on 12-17-2021 Specific gravity (U) [Rel density] 1.016 1.001-1.030 [facility] Squamous epithelial cells de tection in urine sediment by light microscopyOrdered By: Sam Simons on 12-17-2021 Epithelial cells.squamous LM Ql (Urine sed) 0-1 [HPF] 0-2 [facility] Urine bacteria detection by automated methodOrdered By: Sam Simons on 12-17-2021 Bacteria Auto Ql (U) None seen None Seen [facility] Urine clarity by refractomet ry automatedOrdered By: Sam Simons on 12-17-2021 Clarity Refractometry automated (U) Clear Clear [facility] Urine glucose measurement by automated test strip (mass/volume)Ordered By: Sam Simons on 12-17-2021 Glucose Auto test strip (U) [Mass/Vol] Normal mg/dL Normal [facility] Urine hemoglobin detection b y automated test stripOrdered By: Sam Simons on 12-17-2021 Hemoglobin Auto test strip Ql (U) Negative Negative [facility] Urine leukocyte esterase det ection by automated test stripOrdered By: Sam Siomns on 12-17-2021 Leukocyte esterase Auto test strip Ql (U) 4+ Negative [facility] Urobilinogen Auto test strip (U) [Mass/Vol]Ordered By: Sam Simons on 12-17-2021 Urobilinogen (U) [Mass/Vol] Normal mg/dL Normal [facility] pH Auto test strip (U)Ordere d By: Sam Simons on 12-17-2021 pH (U) 6.0 [pH] 5.0-9.0 [facility] Urine culture routineOrdered By: Davis Cervantes on 12-13-2021 Bacteria identified Cx Nom (U) No Growth 2 Days [facility] Automated erythrocytes count in urine sediment (number/area)Ordered By: Davis Cervantes on 12-11-2021 RBC Auto (Urine sed) [#/Area] 20-49 [HPF] 0-4 [facility] Automated leukocytes count i n urine sediment (number/area)Ordered By: Davis Cervantes on 12-11-2021 WBC Auto (Urine sed) [#/Area] 10-19 [HPF] 0-4 [facility] Basophils Auto (Bld) [#/Vol] Ordered By: Davis Cervantes on 12-11-2021 Basophils (Bld) [#/Vol] 0.1 10*3/uL 0.0-0.2 [facility] Basophils/100 WBC Auto (Bld) Ordered By: Davis Cervantes on 12-11-2021 Basophils/100 WBC (Bld) 1.2 % . [facility] Bilirubin Test strip Ql (U)O rdered By: Davis Cervantes on 12-11-2021 Bilirubin Ql (U) Negative Negative [facility] Blood hemoglobin measurement (mass/volume)Ordered By: Davis Cervantes on 12-11-2021 Hemoglobin (Bld) [Mass/Vol] 13.3 g/dL 13.0-17.0 [facility] Blood leukocytes automated c ount (number/volume)Ordered By: Davis Cervantes on 12-11-2021 WBC (Bld) [#/Vol] 8.2 10*3/uL 4.5-11.0 [facility] Color Auto (U)Ordered By: Mary Cervantes on 12-11-2021 Color (U) Yellow Yellow [facility] Creatinine and Glomerular fi ltration rate.predicted panel (S/P/Bld)Ordered By: Davis Cervantes on 12-11-2021 Creatinine [Mass/Vol] 1.16 mg/dL 0.64-1.27 [facility] Eosinophils Auto (Bld) [#/Vo l]Ordered By: Davis Cervantes on 12-11-2021 Eosinophils (Bld) [#/Vol] 0.2 10*3/uL 0.0-0.45 [facility] Eosinophils/100 WBC Auto (Bl d)Ordered By: Davis Cervantes on 12-11-2021 Eosinophils/100 WBC (Bld) 2.9 % . [facility] Erythrocyte distribution wid th Auto (RBC) [Ratio]Ordered By: Davis Cervantes on 12-11-2021 Erythrocyte distribution width (RBC) [Ratio] 11.8 % 12.0-14.8 [facility] Estimated glomerular filtrat ion rate (GFR) non- AmericanOrdered By: Davis Cervantes on 12-11-2021 GFR/1.73 sq M.predicted among non-blacks MDRD (S/P/Bld) [Vol rate/Area] 60 mL/Min [facility] Hematocrit Auto (Bld) [Volum e fraction]Ordered By: Davis Cervantes on 12-11-2021 Hematocrit (Bld) [Volume fraction] 39.6 % 38.8-50.0 [facility] Ketones Auto test strip (U) [Mass/Vol]Ordered By: Davis Cervantes on 12-11-2021 Ketones (U) [Mass/Vol] Negative Negative [facility] - Hematology and Cell countsOrdered By: Davis Cervantes on 12-11-2021 Nucleated RBC/100 WBC (Bld) [Ratio] 0.0 % 0-0.5 [facility] - UrinalysisOrder ed By: Davis Cervantes on 12-11-2021 Hyaline casts LM Ql (Urine sed) 0-8 [LPF] 0-8 [facility] Lymphocytes Auto (Bld) [#/Vo l]Ordered By: Davis Cervantes on 12-11-2021 Lymphocytes (Bld) [#/Vol] 1.9 10*3/uL 1.00-4.8 [facility] Lymphocytes/100 WBC Auto (Bl d)Ordered By: Davis Cervantes on 12-11-2021 Lymphocytes/100 WBC (Bld) 23.3 % . [facility] MCH Auto (RBC) [Entitic mass ]Ordered By: Davis Cervantes on 12-11-2021 MCH (RBC) [Entitic mass] 32.0 pg 27.5-35.2 [facility] MCHC Auto (RBC) [Mass/Vol]Or dered By: Davis Cervantes on 12-11-2021 MCHC (RBC) [Mass/Vol] 33.6 g/dL 32.5-35.6 [facility] MCV Auto (RBC) [Entitic vol] Ordered By: Davis Cervantes on 12-11-2021 MCV (RBC) [Entitic vol] 95.1 fL 83.5-101 [facility] Monocytes Auto (Bld) [#/Vol] Ordered By: Davis Cervantes on 12-11-2021 Monocytes (Bld) [#/Vol] 1.1 10*3/uL 0.0-0.8 [facility] Monocytes/100 WBC Auto (Bld) Ordered By: Davis Cervantes on 12-11-2021 Monocytes/100 WBC (Bld) 13.6 % . [facility] Neutrophils Auto (Bld) [#/Vo l]Ordered By: Davis Cervantes on 12-11-2021 Neutrophils (Bld) [#/Vol] 4.8 10*3/uL 1.8-7.7 [facility] Neutrophils/100 WBC Auto (Bl d)Ordered By: Davis Cervantes on 12-11-2021 Neutrophils/100 WBC (Bld) 59.0 % . [facility] Nitrite Test strip Ql (U)Ord ered By: aDvis Cervantes on 12-11-2021 Nitrite Ql (U) Negative Negative [facility] No Panel InformationOrdered By: Davis Cervantes on 12-11-2021 Estimated GFR () > 60 mL/Min [facility] Comment on above: GFR estimated refere nce range: According to KDOQI guidelines, <60 ml/min/1.73m2 is sufficient to diagnose a patient with chronic kidney disease. Pharmacy Creatinine Clearance (Chem 57.67 [facility] Platelet mean volume Auto (B ld) [Entitic vol]Ordered By: Davis Cervantes on 12-11-2021 Platelet mean volume (Bld) [Entitic vol] 7.0 fL 6.6-10.1 [facility] Platelets Auto (Bld) [#/Vol] Ordered By: Davis Cervantes on 12-11-2021 Platelets (Bld) [#/Vol] 266 10*3/uL 150-450 [facility] Protein Auto test strip (U) [Mass/Vol]Ordered By: Davis Cervantes on 12-11-2021 Protein (U) [Mass/Vol] Negative Negative Fi [facility] RBC Auto (Bld) [#/Vol]Ordere d By: Davis Cervantes on 12-11-2021 RBC (Bld) [#/Vol] 4.17 10*6/uL 3.90-5.60 [facility] Serum or plasma anion gap de terminationOrdered By: Davis Cervantes on 12-11-2021 Anion gap [Moles/Vol] 12.2 mmol/L 6.0-15.0 [facility] Serum or plasma calcium maggy urement (mass/volume)Ordered By: Davis Cervantes on 12-11-2021 Calcium [Mass/Vol] 9.0 mg/dL 8.2-10.2 [facility] Serum or plasma chloride duran surement (moles/volume)Ordered By: Davis Cervantes on 12-11-2021 Chloride [Moles/Vol] 96 mmol/L 95-114 [facility] Serum or plasma glucose maggy urement (mass/volume)Ordered By: Davis Cervantes on 12-11-2021 Glucose [Mass/Vol] 131 mg/dL 70-100 [facility] Comment on above: ADA recommended refe rence rangeRandom Glucose Reference Range is dependent on time and content of last meal. Glucose of more than 200 mg/dL in a nonstressed, ambulatory subject supports the diagnosis of Diabetes Mellitus. Serum or plasma potassium me asurement (moles/volume)Ordered By: Davis Cervantes on 12-11-2021 Potassium [Moles/Vol] 4.5 mmol/L 3.5-5.1 [facility] Serum or plasma sodium measu rement (moles/volume)Ordered By: Davis Cervantes on 12-11-2021 Sodium [Moles/Vol] 131 mmol/L 136-146 [facility] Serum or plasma total carbon dioxide measurement (moles/volume)Ordered By: Davis Cervantes on 12-11-2021 CO2 [Moles/Vol] 27.3 mmol/L 22.0-30.0 [facility] Serum or plasma urea nitroge n measurement (mass/volume)Ordered By: Davis eCrvantes on 12-11-2021 Urea nitrogen [Mass/Vol] 20 mg/dL 9-23 [facility] Specific gravity Auto test s trip (U) [Rel density]Ordered By: Davis Cervantes on 12-11-2021 Specific gravity (U) [Rel density] 1.014 1.001-1.030 [facility] Squamous epithelial cells de tection in urine sediment by light microscopyOrdered By: Davis Cervantes on 12-11-2021 Epithelial cells.squamous LM Ql (Urine sed) 0-1 [HPF] 0-2 [facility] Urine bacteria detection by automated methodOrdered By: Davis Cervantes on 12-11-2021 Bacteria Auto Ql (U) None seen None Seen [facility] Urine clarity by refractomet ry automatedOrdered By: Davis Cervantes on 12-11-2021 Clarity Refractometry automated (U) Clear Clear [facility] Urine glucose measurement by automated test strip (mass/volume)Ordered By: Davis Cervantes on 12-11-2021 Glucose Auto test strip (U) [Mass/Vol] Normal mg/dL Normal [facility] Urine hemoglobin detection b y automated test stripOrdered By: Davis Cervantes on 12-11-2021 Hemoglobin Auto test strip Ql (U) 2+ Negative [facility] Urine leukocyte esterase det ection by automated test stripOrdered By: Davis Cervantes on 12-11-2021 Leukocyte esterase Auto test strip Ql (U) 2+ Negative [facility] Urobilinogen Auto test strip (U) [Mass/Vol]Ordered By: Daivs Cervantes on 12-11-2021 Urobilinogen (U) [Mass/Vol] Normal mg/dL Normal [facility] pH Auto test strip (U)Ordere d By: Davis Cervantes on 12-11-2021 pH (U) 5.5 [pH] 5.0-9.0 [facility] ED NOTEon 11-27-2021 ED NOTE HNO ID: [id number] Author: Alyx Vergara, RN Service: Nursing Author Type: Registered Nurse Type: ED Notes Filed: 11/26/2021 10:21 PM Note Text: Discharge instructions and follow up appointments reviewed. Pt verbalized understanding and states no concerns or questions at this time. VSS. Spoke with Asha about elevated BP. Stated that it's okay for pt to go and have him f/u with his PCP. Normal [facility] ED NOTE HNO ID: [id number] Author: Alyx Vergara RN Service: Nursing Author Type: Registered Nurse Type: ED Notes Filed: 11/26/2021 10:10 PM Note Text: Replaced hamilton bag with leg bag. Normal [facility] Bacteria Ur Culton 2 Bacteria identified Cx Nom (U) [id number] Abnormal [facility] Comment on above: Order Comment: Speci men Type: URINE SPECIMEN Ordering Facility: [facility] Address: [address] [place] [address] Result Comment: >=10 0,000 CFU/ml Klebsiella oxytoca Performed By: #### 6 30-4, 88615-1 #### [facility] CLIA [id number] [address] [place] [address] [place] Bacterial susceptibility maldonado el (Isol)on 11-26-2021 Ampicillin [Susc] Resistant [facility] Comment on above: Order Comment: Order ing Facility: [facility] Address: [address] [place] [address] Performed By: #### 6 30-4, 95831-7 #### [facility] CLIA [id number] [address] [place] [address] [place] Ampicillin+Sulbactam [Susc] 4 Susceptible Susceptible <=8 , Intermediate >8 , Resistant >16 [facility] Comment on above: Order Comment: Order ing Facility: [facility] Address: [address] [place] [address] Performed By: #### 6 30-4, 80100-7 #### [facility] CLIA [id number] [address] [place] [address] [place] ceFAZolin [Susc] <=4 Susceptible Susceptible 0-16 , Intermediate <0 or >16 , Resistant >16 [facility] Comment on above: Order Comment: Order ing Facility: [facility] Address: [address] [place], [place] [address] Performed By: #### 6 30-4, 42615-4 #### [facility] CLIA [id number] [address] [place] [address] Cefepime [Susc] <=1 Susceptible Susceptible <=2 , Intermediate >2 , Resistant >=16 [facility] Comment on above: Order Comment: Order ing Facility: [facility] Address: [address] [place] [address] Performed By: #### 6 30-4, 08536-1 #### [facility] CLIA [id number] [address] [place] [address] cefTRIAXone [Susc] <=1 Susceptible Susceptib le <=1 , Intermediate >1 , Resistant >=4 [facility] Comment on above: Order Comment: Order ing Facility: [facility] Address: [address] [place], [place] [address] Performed By: #### 6 30-4, 18253-6 #### [facility] CLIA [id number] [address] [place] [address] Ciprofloxacin [Susc] <=0.25 Susceptible Suscept ible <0.5 , Intermediate >=.5 , Resistant >=1 [facility] Comment on above: Order Comment: Order ing Facility: [facility] Address: [address] [place], [place] [address] Performed By: #### 6 30-4, 56438-4 #### [facility] CLIA [id number] [address] [place] [address] [place] Ertapenem ROCIO [Susc] <=0.5 Susceptible Suscept ible <=0.5 , Intermediate >.5 , Resistant >1 [facility] Comment on above: Order Comment: Order ing Facility: [facility] Address: [address] Performed By: #### 6 30-4, 61775-1 #### [facility] CLIA [id number] [address] [place] [address] [place] Gentamicin [Susc] <=1 Susceptible Susceptibl e <=4 , Intermediate >4 , Resistant >8 [facility] Comment on above: Order Comment: Order ing Facility: [facility] Address: [address] [place], [place] [address] Performed By: #### 6 30-4, 00493-7 #### [facility] CLIA [id number] [address] [place] [address] Meropenem [Susc] <=0.25 Susceptible Susceptible <=1 , Intermediate >1 , Resistant >2 [facility] Comment on above: Order Comment: Order ing Facility: [facility] Address: [address] [place], [place] [address] Performed By: #### 6 30-4, 15861-8 #### [facility] CLIA [id number] [address] [place] [address] [place] Nitrofurantoin [Susc] 32 Susceptible Suscep tible <=32 , Intermediate >32 , Resistant >64 [facility] Comment on above: Order Comment: Order ing Facility: [facility] Address: [address] Performed By: #### 6 30-4, 88430-3 #### [facility] CLIA [id number] [address] [place] [address] [place] Piperacillin+Sulbactam ROCIO [Susc] <=4 Susceptible Susceptible <=16 , Intermediate >16 , Resistant >64 [facility] Comment on above: Order Comment: Order ing Facility: [facility] Address: [address] Performed By: #### 6 30-4, 59418-8 #### [facility] CLIA [id number] [address] [place] [address] Tobramycin [Susc] <=1 Susceptible Susceptibl e <=4 , Intermediate >4 , Resistant >8 [facility] Comment on above: Order Comment: Order ing Facility: [facility] Address: [address] [place] [address] Performed By: #### 6 30-4, 87318-5 #### [facility] CLIA [id number] [address] [place] [address] Trimethoprim+Sulfameth oxazole [Susc] <=20 Susceptible Susceptible <=40 , Resistant >40 [facility] Comment on above: Order Comment: Order ing Facility: [facility] Address: [address] [place] [address] Performed By: #### 6 30-4, 53980-4 #### [facility] CLIA [id number] [address] [place] [address] ED NOTEon 11-26-2021 ED NOTE HNO ID: [id number] Author: Alyx Vergara RN Service: Nursing Author Type: Registered Nurse Type: ED Notes Filed: 11/26/2021 9:20 PM Note Text: Replaced hamilton per Asha BARR. [facility] ED NOTE HNO ID: [id number] Author: Alyx Vergara RN Service: Nursing Author Type: Registered Nurse Type: ED Notes Filed: 11/26/2021 9:01 PM Note Text: Was instructed to bladder scan pt due to pt having no urine in replaced bag. Bladder scanned 261 mL's the first time. Then 214 mL's the second time. Made Asha ESQUIVEL) aware. [facility] ED NOTE HNO ID: [id number] Author: Alyx Vergara RN Service: Nursing Author Type: Registered Nurse Type: ED Notes Filed: 11/26/2021 9:49 PM Note Text: Flushed 20 mL Hamilton. No leaking noted around tube. [facility] ED PROV NOTEon 11-26-2021 ED PROV NOTE HNO ID: [id number] Author: Asha Clinton PA-C Service: ? Author Type: Physician Cardiology Manager Type: ED Provider Notes Filed: 11/26/2021 [...] culture. Previous and only urine culture in [facility] on 11/07 had no growth. Given dose of Keflex. Prescription for this E scripted to pharmacy. Patient discharged with Hamilton in place, leg bag instructions. Elevated blood pressure noted and improved during stay. No CP, sob, dizziness or any other complaints. Recommend f/u with pcp for recheck. All questions and concerns addre (more content not included)... Normal [facility] Urinalysis complete panel (U )on 11-26-2021 Bacteria LM.HPF (Urine sed) [#/Area] Many Abnormal None Seen [facility] Comment on above: Order Comment: Speci men Type: URINE SPECIMEN Ordering Facility: [facility] Address: [address] [place] [address] Performed By: #### 6 30-4, 59548-7 #### [facility] CLIA [id number] [address] [place] [address] [place] Bilirubin Ql (U) Negative Normal Negative [facility]ital Comment on above: Order Comment: Speci men Type: URINE SPECIMEN Ordering Facility: [facility] Address: [address] [place] [address] Performed By: #### 6 30-4, 47366-2 #### [facility] CLIA [id number] [address] [place] [address] [place] Clarity (Unsp spec) Cloudy Abnormal Clear [facility] Comment on above: Order Comment: Speci men Type: URINE SPECIMEN Ordering Facility: [facility] Address: [address] [place] [address] Performed By: #### 6 30-4, 05359-6 #### [facility] CLIA [id number] [address] [place] [address] [place] Color (U) Yellow Normal Yellow [facility] Comment on above: Order Comment: Speci men Type: URINE SPECIMEN Ordering Facility: [facility] Address: [address] [place] [address] Performed By: #### 6 30-4, 43125-0 #### [facility] CLIA [id number] [address] [place] [address] [place] Epithelial cells LM.HPF (Urine sed) [#/Area] Few Normal [facility] Comment on above: Order Comment: Speci men Type: URINE SPECIMEN Ordering Facility: [facility] Address: [address] [place], [place] [address] Performed By: #### 6 30-4, 90015-5 #### [facility] CLIA [id number] [address] [place] [address] [place] Glucose Test strip (U) [Mass/Vol] Negative Normal Negative [facility] Comment on above: Order Comment: Speci men Type: URINE SPECIMEN Ordering Facility: [facility] Address: [address] [place], [place] [address] Performed By: #### 6 30-4, 81226-8 #### [facility] CLIA [id number] [address] [place] [address] [place] Hemoglobin Ql (U) 2+ Abnormal Negative [facility] Comment on above: Order Comment: Speci men Type: URINE SPECIMEN Ordering Facility: [facility] Address: [address] [place], [place] [address] Performed By: #### 6 30-4, 78832-1 #### [facility] CLIA [id number] [address] [place] [address] [place] Ketones Ql (U) Negative Normal Negative [facility] Comment on above: Order Comment: Speci men Type: URINE SPECIMEN Ordering Facility: [facility] Address: [address] [place], [place] [address] Performed By: #### 6 30-4, 90672-8 #### [facility] CLIA [id number] [address] [place] [address] [place] Leukocyte esterase Test strip Ql (U) 3+ Abnormal Negative [facility] Comment on above: Order Comment: Speci men Type: URINE SPECIMEN Ordering Facility: [facility] Address: [address] [place] [address] Performed By: #### 6 30-4, 69958-6 #### [facility] CLIA [id number] [address] [place] [address] [place] Nitrite Ql (U) Positive Abnormal Negative [facility] Comment on above: Order Comment: Speci men Type: URINE SPECIMEN Ordering Facility: [facility] Address: [address] [place] [address] Performed By: #### 6 30-4, 04260-2 #### [facility] CLIA [id number] [address] [place] [address] [place] pH (U) 5.5 [pH] Normal 5.0-8.0 [facility] Comment on above: Order Comment: Speci men Type: URINE SPECIMEN Ordering Facility: [facility] Address: [address] [place] [address] Performed By: #### 6 30-4, 41712-6 #### [facility] CLIA [id number] [address] [place] [address] [place] Protein (U) [Mass/Vol] Normal [facility] Comment on above: Order Comment: Speci men Type: URINE SPECIMEN Ordering Facility: [facility] Address: [address] [place] [address] Result Comment: Visi ble blood causes falsely elevated results for analyte Protein. Due to this limitation, Protein will not be reported for patients whose urine contains visible blood. Performed By: #### 6 30-4, 66796-0 #### [facility] CLIA [id number] [address] [place] [address] [place] RBC LM.HPF (Urine sed) [#/Area] 6-10 /HPF Abnormal 0-3 /HPF [facility] Comment on above: Order Comment: Speci men Type: URINE SPECIMEN Ordering Facility: [facility] Address: [address] [place] [address] Performed By: #### 6 30-4, 25462-1 #### [facility] CLIA [id number] [address] [place] [address] [place] Specific gravity (U) [Rel density] 1.009 Normal 1.005-1.030 [facility] Comment on above: Order Comment: Speci men Type: URINE SPECIMEN Ordering Facility: [facility] Address: [address] [place] [address] Performed By: #### 6 30-4, 29725-5 #### [facility] CLIA [id number] [address] [place] [address] [place] Urobilinogen Ql (U) 0.2 EU/dL Normal 0.2-1.0 EU/dL [facility] Comment on above: Order Comment: Speci men Type: URINE SPECIMEN Ordering Facility: [facility] Address: [address] [place] [address] Performed By: #### 6 30-4, 55522-2 #### [facility] CLIA [id number] [address] [place] [address] [place] WBC LM.HPF (Urine sed) [#/Area] 11-25 /HPF Abnormal 0-5 /HPF [facility] Comment on above: Order Comment: Speci men Type: URINE SPECIMEN Ordering Facility: [facility] Address: [address] [place] [address] Performed By: #### 6 30-4, 18050-5 #### [facility] CLIA [id number] [address] [place] [address] [place] Covid-19 PCR (CVDTB)on SARS-CoV-2 (COVID-19) RNA LUANNE+probe Ql (Unsp spec) Not detected Normal NOT DETECTED [facility] Comment on above: Result Comment: This test is not yet approved or cleared by the [place] FDA. When there are no FDA-approved or cleared tests available, and other criteria are met, FDA can make tests available under an emergency access mechanism called an Emergency Use Authorization (EUA). The EUA for this test is supported by the [place] of Health and Human Service's (HHS's) declaration [...] SARS-CoV-2. Performed By: #### C VDTB #### [facility] [address] [place] [address] Dr. Juan Pablo Kaminski Bacteria Ur Culton 2 Bacteria identified Cx Nom (U) No growth (<1,000 CFU/ml) Normal [facility] Comment on above: Order Comment: Speci men Type: URINE SPECIMEN Ordering Facility: [facility] Address: [address] [place] [address] Performed By: #### 6 30-4 #### [facility] CLIA [id number] [address] [place] [address] [place] Basic metabolic 2000 panelon 11-07-2021 Anion gap [Moles/Vol] 10 mmol/L Normal 9-18 [facility] Comment on above: Order Comment: Speci men Type: URINE SPECIMEN Ordering Facility: [facility] Address: [address] [place] [address] Performed By: #### 6 30-4, 41392-1 #### [facility] CLIA [id number] [address] [place] [address] [place] Calcium [Mass/Vol] 9.1 mg/dL Normal 8.5-10.2 [facility] Comment on above: Order Comment: Speci men Type: URINE SPECIMEN Ordering Facility: [facility] Address: [address] [place], [place] [address] Performed By: #### 6 30-4, 18722-6 #### [facility] CLIA [id number] [address] [place] [address] [place] Chloride [Moles/Vol] 95 mmol/L Low 97-105 [facility] Comment on above: Order Comment: Speci men Type: URINE SPECIMEN Ordering Facility: [facility] Address: [address] [place], [place] [address] Performed By: #### 6 30-4, 14765-3 #### [facility] CLIA [id number] [address] [place] [address] [place] CO2 [Moles/Vol] 25 mmol/L Normal 22-30 [facility] Comment on above: Order Comment: Speci men Type: URINE SPECIMEN Ordering Facility: [facility] Address: [address] [place], [place] [address] Performed By: #### 6 30-4, 51663-7 #### [facility] CLIA [id number] [address] [place] [address] [place] Creatinine [Mass/Vol] 1.25 mg/dL High 0.73-1.22 [facility] Comment on above: Order Comment: Speci men Type: URINE SPECIMEN Ordering Facility: [facility] Address: [address] [place], [place] [address] Performed By: #### 6 30-4, 78458-9 #### [facility] CLIA [id number] [address] [place] [address] [place] ESTIMATED GLOMERULAR FILTRATION RATE 57 mL/min/1.73m??? Low >=60 [facility] Comment on above: Order Comment: Speci men Type: URINE SPECIMEN Ordering Facility: [facility] Address: [address] [place] [address] Result Comment: Annalise mated Glomerular Filtration Rate [...] actual GFR. Performed By: #### 6 30-4, 23456-8 #### [facility] CLIA [id number] [address] [place] [address] [place] Glucose [Mass/Vol] 129 mg/dL High 74-99 [facility] Comment on above: Order Comment: Specfabiana men Type: URINE SPECIMEN Ordering Facility: [facility] Address: [address] [place] [address] Result Comment: The [place] Diabetes Association (ADA) provides guidance for cutoff [...] Standards of Medical Care in Diabetes 2016, [place] [employer]. Diabetes Care. 2016.39(Suppl 1). Performed By: #### 6 30-4, 71634-5 #### [facility] CLIA [id number] [address] [place] [address] [place] Potassium [Moles/Vol] 4.6 mmol/L Normal 3.7-5.1 [facility] Comment on above: Order Comment: Domonique garcia Type: URINE SPECIMEN Ordering Facility: [facility] Address: [address] [place] [address] Performed By: #### 6 30-4, 52977-3 #### [facility] CLIA [id number] [address] [place] [address] [place] Sodium [Moles/Vol] 130 mmol/L Low 136-144 [facility] Comment on above: Order Comment: Speci men Type: URINE SPECIMEN Ordering Facility: [facility] Address: [address] [place] [address] Performed By: #### 6 30-4, 95355-6 #### [facility] CLIA [id number] [address] [place] [address] [place] Urea nitrogen [Mass/Vol] 23 mg/dL Normal 9-24 [facility] Comment on above: Order Comment: Speci men Type: URINE SPECIMEN Ordering Facility: [facility] Address: [address] [place] [address] Performed By: #### 6 30-4, 20966-0 #### [facility] CLIA [id number] [address] [place] [address] [place] CBC W Auto Differential pane l (Bld)on 11-07-2021 Basophils/100 WBC (Bld) 0.0 % Normal [facility] Comment on above: Order Comment: Speci men Type: URINE SPECIMEN Ordering Facility: [facility] Address: [address] [place] [address] Performed By: #### 6 30-4, 56064-6 #### [facility] CLIA [id number] [address] [place] [address] [place] Differential cell count method Nom (Bld) Manual Normal [facility] Comment on above: Order Comment: Speci men Type: URINE SPECIMEN Ordering Facility: [facility] Address: [address] [place], [place] [address] Performed By: #### 6 30-4, 08681-4 #### [facility] CLIA [id number] [address] [place] [address] [place] Eosinophils (Bld) [#/Vol] 0.10 10*3/uL Normal <0.46 [facility] Comment on above: Order Comment: Speci men Type: URINE SPECIMEN Ordering Facility: [facility] Address: [address] [place], [place] [address] Performed By: #### 6 30-4, 90652-7 #### [facility] CLIA [id number] [address] [place] [address] [place] Eosinophils/100 WBC (Bld) 1.0 % Normal [facility] Comment on above: Order Comment: Speci men Type: URINE SPECIMEN Ordering Facility: [facility] Address: [address] [place] [address] Performed By: #### 6 30-4, 56376-4 #### [facility] CLIA [id number] [address] [place] [address] [place] Erythrocyte distribution width (RBC) [Ratio] 11.5 % Normal 11.5-15.0 [facility] Comment on above: Order Comment: Speci men Type: URINE SPECIMEN Ordering Facility: [facility] Address: [address] [place] [address] Performed By: #### 6 30-4, 42428-1 #### [facility] CLIA [id number] [address] [place] [address] [place] Hematocrit (Bld) [Volume fraction] 39.8 % Normal 39.0-51.0 [facility] Comment on above: Order Comment: Speci men Type: URINE SPECIMEN Ordering Facility: [facility] Address: [address] [place], [place] [address] Performed By: #### 6 30-4, 39447-1 #### [facility] CLIA [id number] [address] [place] [address] [place] Hemoglobin (Bld) [Mass/Vol] 13.4 g/dL Normal 13.0-17.0 [facility] Comment on above: Order Comment: Speci men Type: URINE SPECIMEN Ordering Facility: [facility] Address: [address] [place], [place] [address] Performed By: #### 6 30-4, 61539-9 #### [facility] CLIA [id number] [address] [place] [address] Lymphocytes (Bld) [#/Vol] 1.67 10*3/uL Normal 1.00-4.00 [facility] Comment on above: Order Comment: Speci men Type: URINE SPECIMEN Ordering Facility: [facility] Address: [address] [place] [address] Performed By: #### 6 30-4, 95687-3 #### [facility] CLIA [id number] [address] [place] [address] Lymphocytes/100 WBC (Bld) 17.0 % Normal [facility] Comment on above: Order Comment: Speci men Type: URINE SPECIMEN Ordering Facility: [facility] Address: [address] [place] [address] Performed By: #### 6 30-4, 76306-5 #### [facility] CLIA [id number] [address] [place] [address] [place] MCH (RBC) [Entitic mass] 31.5 pg Normal 26.0-34.0 [facility] Comment on above: Order Comment: Speci men Type: URINE SPECIMEN Ordering Facility: [facility] Address: [address] [place], [place] [address] Performed By: #### 6 30-4, 83600-0 #### [facility] CLIA [id number] [address] [place] [address] [place] MCHC (RBC) [Mass/Vol] 33.7 g/dL Normal 30.5-36.0 [facility] Comment on above: Order Comment: Speci men Type: URINE SPECIMEN Ordering Facility: [facility] Address: [address] [place], [place] [address] Performed By: #### 6 30-4, 71227-8 #### [facility] CLIA [id number] [address] [place] [address] [place] MCV (RBC) [Entitic vol] 93.4 fL Normal 80.0-100.0 [facility] Comment on above: Order Comment: Speci men Type: URINE SPECIMEN Ordering Facility: [facility] Address: [address] [place] [address] Performed By: #### 6 30-4, 57804-3 #### [facility] CLIA [id number] [address] [place] [address] [place] Neutrophils (Bld) [#/Vol] 6.29 10*3/uL Normal 1.45-7.50 [facility] Comment on above: Order Comment: Speci men Type: URINE SPECIMEN Ordering Facility: [facility] Address: [address] [place] [address] Performed By: #### 6 30-4, 18823-5 #### [facility] CLIA [id number] [address] [place] [address] [place] Neutrophils/100 WBC (Bld) 64.0 % Normal [facility] Comment on above: Order Comment: Speci men Type: URINE SPECIMEN Ordering Facility: [facility] Address: [address] [place] [address] Performed By: #### 6 30-4, 47228-2 #### [facility] CLIA [id number] [address] [place] [address] [place] Nucleated RBC/100 WBC (Bld) [Ratio] 0.0 /100 WBC Normal [facility] Comment on above: Order Comment: Speci men Type: URINE SPECIMEN Ordering Facility: [facility] Address: [address] [place], [place] [address] Performed By: #### 6 30-4, 96490-7 #### [facility] CLIA [id number] [address] [place] [address] [place] PLATELET ESTIMATE Adequate Normal [facility] Comment on above: Order Comment: Speci men Type: URINE SPECIMEN Ordering Facility: [facility] Address: [address] [place], [place] [address] Performed By: #### 6 30-4, 88733-6 #### [facility] CLIA [id number] [address] [place] [address] [place] Platelet mean volume (Bld) [Entitic vol] 10.2 fL Normal 9.0-12.7 [facility] Comment on above: Order Comment: Speci men Type: URINE SPECIMEN Ordering Facility: [facility] Address: [address] [place], [place] [address] Performed By: #### 6 30-4, 60787-1 #### [facility] CLIA [id number] [address] [place] [address] [place] Platelets (Bld) [#/Vol] 258 10*3/uL Normal 150-400 [facility] Comment on above: Order Comment: Speci men Type: URINE SPECIMEN Ordering Facility: [facility] Address: [address] [place], [place] [address] Performed By: #### 6 30-4, 27142-5 #### [facility] CLIA [id number] [address] [place] [address] [place] RBC (Bld) [#/Vol] 4.26 10*6/uL Normal 4.20-6.00 [facility] Comment on above: Order Comment: Speci men Type: URINE SPECIMEN Ordering Facility: [facility] Address: [address] [place], [place] [address] Performed By: #### 6 30-4, 79251-4 #### [facility] CLIA [id number] [address] [place] [address] [place] RED CELL MORPH Reviewed: unremarkable Normal [facility] Comment on above: Order Comment: Speci men Type: URINE SPECIMEN Ordering Facility: [facility] Address: [address] [place] [address] Performed By: #### 6 30-4, 39055-0 #### [facility] CLIA [id number] [address] [place] [address] [place] WAM - ABS BASO 0.00 k/uL Normal <0.11 [facility] Comment on above: Order Comment: Speci men Type: URINE SPECIMEN Ordering Facility: [facility] Address: [address] [place], [place] [address] Performed By: #### 6 30-4, 40837-0 #### [facility] CLIA [id number] [address] [place] [address] [place] WAM - ABS MONO 1.77 k/uL High <0.87 [facility] Comment on above: Order Comment: Speci men Type: URINE SPECIMEN Ordering Facility: [facility] Address: [address] [place], [place] [address] Performed By: #### 6 30-4, 89040-1 #### [facility] CLIA [id number] [address] [place] [address] [place] WAM - MONO% 18.0 % Normal [facility] Comment on above: Order Comment: Speci men Type: URINE SPECIMEN Ordering Facility: [facility] Address: [address] [place], [place] [address] Performed By: #### 6 30-4, 06235-2 #### [facility] CLIA [id number] [address] [place] [address] [place] W[place] ABSOLUTE NRBC <0.01 Normal <0.01 [facility] Comment on above: Order Comment: Speci men Type: URINE SPECIMEN Ordering Facility: [facility] Address: [address] [place], [place] [address] Performed By: #### 6 30-4, 55007-1 #### [facility] CLIA [id number] [address] [place], [place] [address] [place] WBC (Bld) [#/Vol] 9.83 10*3/uL Normal 3.70-11.00 [facility] Comment on above: Order Comment: Speci men Type: URINE SPECIMEN Ordering Facility: [facility] Address: [address] [place] [id number] Performed By: #### 6 30-4, 84478-2 #### [facility] CLIA [id number] [address] [place] [address] [place] ED NOTEon 11-07-2021 ED NOTE HNO ID: [id number] Author: Yoshi Schumacher RN Service: ? Author Type: Registered Nurse Type: ED Notes Filed: 11/07/2021 5:14 PM Note Text: Pt provided with discharged instructions. Medications gone over and all questions answered. Pt. Left with steady gait with friend for a ride. [facility] ED NOTE HNO ID: [id number] Author: Flaquita Donnelly RN Service: ? Author Type: Registered Nurse Type: ED Notes Filed: 11/07/2021 1:24 PM Note Text: Pt to ED for urinary retention. Pt had appointment with Urology on Wednesday, but was not able to be seen. Pt denies pain, but reports pressure in the bladder. Pt states he is not able to urinate completely and reports dribbling. [facility] ED PROV NOTEon 11-07-2021 ED PROV NOTE HNO ID: [id number] Author: Keely Gutierrez DO Service: Emergency Medicine [...] this Wednesday with his urologist out of [place] but was notified that his urologist had [...] cysts one of which is mildly complex. Hospice Registered Nurse: LIANA Transcribe Date/Time: Nov 07 2021 2:57P [...] at th (more content not included)... Normal [facility] US KIDNEY/BLADDERon 11-08-19 US KIDNEY/BLADDER * * *Final Report* * * DATE OF EXAM: Nov 07 2021 2:52PM [facility] 1055 - US KIDNEY/BLADDER / PROCEDURE [...] cysts one of which is mildly complex. [facility]ospice [facility] Transcribe Date/Time: Nov 07 2021 2:57P Dictated by : NEHEMIAS COLBERT MD This examination was interpreted and the report reviewed and electronically signed by: NEHEMIAS COLBERT MD on Nov 07 2021 3:09PM EST [id number] Normal [facility] Urinalysis complete panel (U )on 11-07-2021 Bilirubin Ql (U) Negative Normal Negative [facility]ital Comment on above: Order Comment: Speci men Type: URINE SPECIMEN Ordering Facility: [facility] Address: [address] [place] [address] Performed By: #### 6 30-4, 94043-6 #### [facility] CLIA [id number] [address] [place] [address] [place] Clarity (Unsp spec) Clear Normal Clear [facility] Comment on above: Order Comment: Speci men Type: URINE SPECIMEN Ordering Facility: [facility] Address: [address] [place] [address] Performed By: #### 6 30-4, 56600-8 #### [facility] CLIA [id number] [address] [place] [address] [place] Color (U) Yellow Normal Yellow [facility] Comment on above: Order Comment: Speci men Type: URINE SPECIMEN Ordering Facility: [facility] Address: [address] [place] [address] Performed By: #### 6 30-4, 66769-3 #### [facility] CLIA [id number] [address] [place] [address] [place] Epithelial cells LM.HPF (Urine sed) [#/Area] Few Normal [facility] Comment on above: Order Comment: Speci men Type: URINE SPECIMEN Ordering Facility: [facility] Address: [address] [place] [address] Performed By: #### 6 30-4, 47981-0 #### [facility] CLIA [id number] [address] [place] [address] [place] Glucose Test strip (U) [Mass/Vol] Negative Normal Negative [facility] Comment on above: Order Comment: Speci men Type: URINE SPECIMEN Ordering Facility: [facility] Address: [address] [place] [address] Performed By: #### 6 30-4, 47716-5 #### [facility] CLIA [id number] [address] [place] [address] [place] Hemoglobin Ql (U) Negative Normal Negative [facility] Comment on above: Order Comment: Speci men Type: URINE SPECIMEN Ordering Facility: [facility] Address: [address] [place], [place] [address] Performed By: #### 6 30-4, 28581-4 #### [facility] CLIA [id number] [address] [place] [address] [place] Hyaline casts (Urine sed) [#/Area] 1-3 /LPF Abnormal 0 /LPF [facility] Comment on above: Order Comment: Speci men Type: URINE SPECIMEN Ordering Facility: [facility] Address: [address] [place], [place] [address] Performed By: #### 6 30-4, 83013-8 #### [facility] CLIA [id number] [address] [place] [address] [place] Ketones Ql (U) Trace Abnormal Negative [facility] Comment on above: Order Comment: Speci men Type: URINE SPECIMEN Ordering Facility: [facility] Address: [address] [place] [address] Performed By: #### 6 30-4, 10350-7 #### [facility] CLIA [id number] [address] [place] [address] [place] Leukocyte esterase Test strip Ql (U) Negative Normal Negative [facility] Comment on above: Order Comment: Speci men Type: URINE SPECIMEN Ordering Facility: [facility] Address: [address] [place] [address] Performed By: #### 6 30-4, 99610-8 #### [facility] CLIA [id number] [address] [place] [address] [place] Nitrite Ql (U) Negative Normal Negative [facility] Comment on above: Order Comment: Speci men Type: URINE SPECIMEN Ordering Facility: [facility] Address: [address] [place], [place] [address] Performed By: #### 6 30-4, 80913-6 #### [facility] CLIA [id number] [address] [place] [address] [place] pH (U) 5.5 [pH] Normal 5.0-8.0 [facility] Comment on above: Order Comment: Speci men Type: URINE SPECIMEN Ordering Facility: [facility] Address: [address] [place] [address] Performed By: #### 6 30-4, 38912-2 #### [facility] CLIA [id number] [address] STATES [facility] Protein (U) [Mass/Vol] Negative Normal Negative [facility] Comment on above: Order Comment: Speci men Type: URINE SPECIMEN Ordering Facility: [facility] Address: [address] [place] [address] Performed By: #### 6 30-4, 18126-8 #### [facility] CLIA [id number] [address] [place] [address] [place] RBC LM.HPF (Urine sed) [#/Area] 0-3 /HPF Normal 0-3 /HPF [facility] Comment on above: Order Comment: Speci men Type: URINE SPECIMEN Ordering Facility: [facility] Address: [address] [place] [address] Performed By: #### 6 30-4, 39972-4 #### [facility] CLIA [id number] [address] [place] [address] [place] Specific gravity (U) [Rel density] 1.024 Normal 1.005-1.030 [facility] Comment on above: Order Comment: Speci men Type: URINE SPECIMEN Ordering Facility: [facility] Address: [address] [place] [address] Performed By: #### 6 30-4, 18828-3 #### [facility] CLIA [id number] [address] [place] [address] [place] Urobilinogen Ql (U) 0.2 EU/dL Normal 0.2-1.0 EU/dL [facility] Comment on above: Order Comment: Speci men Type: URINE SPECIMEN Ordering Facility: [facility] Address: [address] [place], [place] [address] Performed By: #### 6 30-4, 93452-9 #### [facility] CLIA [id number] [address] [place] [address] [place] WBC LM.HPF (Urine sed) [#/Area] 0-5 /HPF Normal 0-5 /HPF [facility] Comment on above: Order Comment: Speci men Type: URINE SPECIMEN Ordering Facility: [facility] Address: [address] [place], [place] [id number] Performed By: #### 6 30-4, 60154-5 #### [facility] CLIA [id number] [address] [place] [address] [address] [place] Ambulatory Visit Summaryon 0 10-28-2021 Ambulatory Visit Summary NORBERTO WASHINGTON :1940 Visit Date:10/28/2021 Ambulatory Visit Instructions Your Diagnosis BPH with urinary obstruction Nocturia Post-void dribbling Incomplete emptying of bladder Urinary incontinence Tests Performed Urnls Dip Stick Auto w/o Microscopy POC 79631 Your Care Team Attending Physician - Paul [...] Where: [facility] [address], [place] [address]- Medications What How Much When Instructions Unchanged [...] Urnls Dip Stick Auto w/o Microscopy POC 26289 (10/28/2021) Bilirubin Urine Dipstick - Negative Blood Urine Dipstick - Negative Glucose Urine Dipstick - Negative Ketones Urine Dipstick - Negative Leukocytes Urine Dipstick - Negative Nitrite Urine Dipstick - Negative Protein Urine Dipstick - Negative Specific [place] Urine Dipstick - 1.015 Urine Appearance Urine [...] ? Urina (more content not included)... Normal [facility] Patient Educationon 10-29-19 Patient Education Urology Benign [...] Follow these instructions at home: ? Take ovdf-fmw-hzohjcs and prescription medicines only as told by [...] You d (more content not included)... Normal [facility] Urology Office/Clinic Noteon 10-28-2021 Urology Office/Clinic Note [...] urine and/or bladder capacity by US- non-imaging 26118 PSA Total Urnls Dip Stick Auto w/o Microscopy POC 89674 Urology Procedure Order 2. Nocturia (R35.1: Nocturia) moderate, Variable 2-5 times per night Ordered: Measure Post Void residual urine and/or bladder capacity by US- non-imaging 31818 PSA Total Urology Procedure Order 3. Post-void dribbling (N39.43: Post-v (more content not included)... Normal [facility] Comment on above: Result Comment: Elec tronically Signed By: Billy Connolly MD, Paul Valdes\.br\Date and Time Signed: 10/28/21 08:47 EDT\.br\Electronically Co-Signed By: Jessie Rivera\.br\Date and Time Co-Signed: 10/28/21 08:39 EDT MICROALBUMIN URINEon 022 Albumin, Urine 5.6 ug/mL Normal Not Estab. [facility] Comment on above: Performed By: #### M ALBLC #### [facility] [address] [place] [address] Dr. Juan Pablo Kaminski US CAROTID ART [...] SAMY TORRES Date: 2021-10-23 17:19 Normal [facility] CBC AUTO DIFFon 10-21-2021 BASO # 0.0 103/ul Normal 0.0-0.1 [facility] Comment on above: Performed By: #### A 1C #### [facility] [address] [place] [address] Dr. Juan Pablo Kaminski Basophils/100 WBC (Bld) 0.5 % Normal 0.2-2.0 [facility] Comment on above: Performed By: #### A 1C #### [facility] [address] [place] [address] Dr. Juan Pablo Kaminski EO # 0.3 103/ul Normal 0.0-0.7 [facility] Comment on above: Performed By: #### A 1C #### [facility] [address] [place] [address] Dr. Juan Pablo Kaminski Eosinophils/100 WBC (Bld) 3.6 % Normal 0.9-7.0 [facility] Comment on above: Performed By: #### A 1C #### [facility] [address] [place] [address] Dr. Juan Pablo Kaminski Erythrocyte distribution width (RBC) [Ratio] 11.1 % Normal 11.0-15.0 [facility] Comment on above: Performed By: #### A 1C #### [facility] [address] [place] [address] Dr. Juan Pablo Kaminski Hematocrit (Bld) [Volume fraction] 41.8 % Critically low 42.0-54.0 [facility] Comment on above: Performed By: #### A 1C #### [facility] [address] [place] [address] Dr. Juan Pablo Kaminski Hemoglobin (Bld) [Mass/Vol] 14.1 g/dL Normal 14.0-18.0 [facility] Comment on above: Performed By: #### A 1C #### [facility] [address] [place] [address] Dr. Juan Pablo Kaminski IG # 0.03 10e3/ul Normal 0.00-0.03 [facility] Comment on above: Performed By: #### A 1C #### [facility] [address] [place] [address] Dr. Juan Pablo Kaminski IG % 0.4 % Normal 0.0-0.5 [facility] Comment on above: Performed By: #### A 1C #### [facility] [address] [place] [address] Dr. Juan Pablo Kaminski LYMPH # 2.2 103/ul Normal 1.2-3.8 [facility] Comment on above: Performed By: #### A 1C #### [facility] [address] [place] [address] Dr. Juan Pablo Kaminski Lymphocytes/100 WBC (Bld) 29.4 % Normal 20.5-60.0 [facility] Comment on above: Performed By: #### A 1C #### [facility] [address] [place] [address] Dr. Juan Pablo Kaminski MANUAL DIFF REQ NO Normal [facility] Comment on above: Performed By: #### A 1C #### [facility] [address] [place] [address] Dr. Juan Pablo Kaminski MCH (RBC) [Entitic mass] 31.8 pg Normal 25.9-34.0 [facility] Comment on above: Performed By: #### A 1C #### [facility] [address] [address] [address] Juan Pablo Kaminski MCHC (RBC) [Mass/Vol] 33.7 g/dL Normal 29.9-35.2 [facility] Comment on above: Performed By: #### A 1C #### [facility] [address] [address] [address] Juan Pablo Kaminski MCV (RBC) [Entitic vol] 94.1 fL Critically high 80.0-94.0 [facility] Comment on above: Performed By: #### A 1C #### [facility] [address] [address] [address] Juan Pablo Kaminski MONO # 0.9 103/ul Critically high 0.3-0.8 [facility] Comment on above: Performed By: #### A 1C #### [facility] [address] [address] [address] Juan Pablo Kaminski Monocytes/100 WBC (Bld) 11.7 % Normal 1.7-12.0 [facility] Comment on above: Performed By: #### A 1C #### [facility] [address] [address] [address] Juan Pablo Kaminski NEUT # 4.0 103/ul Normal 1.4-6.5 [facility] Comment on above: Performed By: #### A 1C #### [facility] [address] [address] [address] Juan Pablo Kaminski Neutrophils/100 WBC (Bld) 54.4 % Normal 43.0-75.0 [facility] Comment on above: Performed By: #### A 1C #### [facility] [address] [address] [address] Juan Pablo Kaminski Platelet mean volume (Bld) [Entitic vol] 8.6 fL Critically low 9.5-13.5 [facility] Comment on above: Performed By: #### A 1C #### [facility] [address] [address] [address] Juan Pablo Kaminski PLT 231 103/ul Normal 150-450 [facility] Comment on above: Performed By: #### A 1C #### [facility] [address] [address] [address] Juan Pablo Kaminski RBC 4.44 106/ul Critically low 4.70-6.10 [facility] Comment on above: Performed By: #### A 1C #### [facility] [address] [address] [address] Juan Pablo Kaminski WBC 7.3 103/ul Normal 4.0-11.0 [facility] Comment on above: Performed By: #### A 1C #### [facility] [address] [address] [address] Juan Pablo Kaminski DIRECT LDLon 10-21-2021 Cholesterol in LDL [Mass/Vol] 106 mg/dL Normal [facility] Comment on above: Performed By: #### A LT BMP, DLDL #### [facility] [address] [place] [address] Dr. Juan Pablo Kaminski DLDL NORMAL SEE BELOW Normal [facility] Comment on above: Result Comment: <100 mg/dl OPTIMAL 100 - 129 mg/dl NEAR OR ABOVE OPTIMAL 130 - 159 mg/dl BORDERLINE HIGH 160 - 189 mg/dl HIGH >190 mg/dl VERY HIGH Performed By: #### A LT, BMP, DLDL #### [facility] [address] [address] [address] Juan Pablo Kaminski GLYCOHEMOGLOBIN A1Con 2021 ADA RECOMMENDATION SEE BELOW Normal [facility] Comment on above: Result Comment: ADA RECOMMENDED LIMIT 4.0 - 6.0 ADA THERAPEUTIC TARGET < 7.0 ACTION SUGGESTED > 7.0 Performed By: #### A 1C #### [facility] [address] [place] [address] Dr. Juan Pablo Kaminski Glucose [Mass/Vol] 120 mg/dL Normal [facility] Comment on above: Performed By: #### A 1C #### [facility] [address] [place] [address] Dr. Juan Pablo Kaminski HbA1c (Bld) [Mass fraction] 5.8 % Normal 4.5-6.2 [facility] Comment on above: Performed By: #### A 1C #### [facility] [address] [place] [address] Dr. Juan Pablo Kaminski PROF CHEM 8 (BAS METB)on Anion gap [Moles/Vol] 12.7 mmol/L Normal Th [facility] Comment on above: Performed By: #### A 1C #### [facility] [address] [place] [address] Dr. Juan Pablo Kaminski Calcium [Mass/Vol] 8.7 mg/dL Normal 8.5-10.1 [facility] Comment on above: Performed By: #### A 1C #### [facility] [address] [place] [address] Dr. Juan Pablo Kaminski Chloride [Moles/Vol] 98 mmol/L Normal 98-107 [facility] Comment on above: Performed By: #### A 1C #### [facility] [address] [place] [address] Dr. Juan Pablo Kaminski CO2 [Moles/Vol] 28.0 mmol/L Normal 21.0-32.0 [facility] Comment on above: Performed By: #### A 1C #### [facility] [address] [place] [address] Dr. Juan Pablo Kaminski Creatinine [Mass/Vol] 1.07 mg/dL Normal 0.70-1.30 [facility] Comment on above: Performed By: #### A 1C #### [facility] [address] [place] [address] Dr. Juan Pablo Kaminski EGFR-AF IRAQI >60 Normal >=60 [facility] Comment on above: Performed By: #### A 1C #### [facility] [address] [place] [address] Dr. Juan Pablo Kaminski EGFR-NON AF IRAQI >60 Normal >=60 [facility] Comment on above: Performed By: #### A 1C #### [facility] [address] [place] [address] Dr. Juan Pablo Kaminski Glucose [Mass/Vol] 133 mg/dL Critically high 74-106 [facility] Comment on above: Performed By: #### A 1C #### [facility] [address] [place] [address] Dr. Juan Pablo Kaminski Potassium [Moles/Vol] 4.7 mmol/L Normal 3.5-5.1 [facility] Comment on above: Performed By: #### A 1C #### [facility] [address] [place] [address] Dr. Juan Pablo Kaminski Sodium [Moles/Vol] 134 mmol/L Critically low 136-145 [facility] Comment on above: Performed By: #### A 1C #### [facility] [address] [place] [address] Dr. Juan Pablo Kaminski Urea nitrogen [Mass/Vol] 17.0 mg/dL Normal 7.0-18.0 [facility] Comment on above: Performed By: #### A 1C #### [facility] [address] [place] [address] Dr. Juan Pablo Kaminski Urea nitrogen/Creatinine [Mass ratio] 15.9 mg/mg Normal [facility] Comment on above: Performed By: #### A 1C #### [facility] [address] [place] [address] Dr[facility] ALT [Catalytic activity/Vol] 31 U/L Normal 16-63 [facility] Comment on above: Performed By: #### A 1C #### [facility] [address] [place] [address] Dr. Juan Pablo Kaminski GLYCOHEMOGLOBIN A1Con 2021 ADA RECOMMENDATION SEE BELOW Normal [facility] Comment on above: Result Comment: ADA RECOMMENDED LIMIT 4.0 - 6.0 ADA THERAPEUTIC TARGET < 7.0 ACTION SUGGESTED > 7.0 Performed By: #### A 1C #### [facility] [address] [place] [address] Dr. Juan Pablo Kaminski Glucose [Mass/Vol] 131 mg/dL Normal [facility] Comment on above: Performed By: #### A 1C #### [facility] [address] [place] [address] Dr. Juan Pablo Kaminski HbA1c (Bld) [Mass fraction] 6.2 % Normal 4.5-6.2 [facility] Comment on above: Performed By: #### A 1C #### [facility] [address] [place] [address] Dr. Juan Pablo Kaminski Vital Signs Date Time Vital Sign Value Performing Clinician Denis diehly 03-17-2023 10:30-0500 Body height 190.5 cm Campbell Ball Other [email or web address] Other 03-17-2023 10:30-0500 Body mass index (BMI) [Ratio] 27.55 kg/m2 Campbell Ball Other [email or web address] Other 03-17-2023 10:30-0500 Body weight 99.97 kg Campbell Ball Other [email or web address] Other 03-17-2023 10:30-0500 Diastolic blood pressure 67 mm[Hg] Campbell Ball Other [email or web address] Other 03-17-2023 10:30-0500 Respiratory rate 12 /min Campbell Ball Other [email or web address] Other 03-17-2023 10:30-0500 Systolic blood pressure 159 mm[Hg] Campbell Ball Other [email or web address] Other 02-23-2023 09:30-0500 Body height 190.5 cm Campbell Ball Other [email or web address] Other 02-23-2023 09:30-0500 Body mass index (BMI) [Ratio] 28.02 kg/m2 Campbell Ball Other [email or web address] Other 02-23-2023 09:30-0500 Body weight 101.7 kg Campbell Ball Other [email or web address] Other 02-23-2023 09:30-0500 Diastolic blood pressure 78 mm[Hg] Campbell Ball Other [email or web address] Other 02-23-2023 09:30-0500 Respiratory rate 12 /min Campbell Ball Other [email or web address] Other 02-23-2023 09:30-0500 Systolic blood pressure 157 mm[Hg] Campbell Ball Other [email or web address] Other 02-19-2023 10:45-0500 Body height 190.5 cm Campbell Ball Other [email or web address] Other 02-19-2023 10:45-0500 Body mass index (BMI) [Ratio] 28 kg/m2 Campbell Ball Other [email or web address] Other 02-19-2023 10:45-0500 Body weight 101.61 kg Campbell Ball Other [email or web address] Other 02-19-2023 10:45-0500 Diastolic blood pressure 72 mm[Hg] Campbell Ball Other [email or web address] Other 02-19-2023 10:45-0500 Respiratory rate 12 /min Campbell Ball Other [email or web address] Other 02-19-2023 10:45-0500 Systolic blood pressure 144 mm[Hg] Campbell Ball Other [email or web address] Other 02-02-2023 13:37-0500 Body weight 102.06 kg Leticia [place] [employer] Work Phone: [facility] 02-02-2023 13:37-0500 Diastolic blood pressure 70 mm[Hg] Leticia [place] [employer] Work Phone: [facility] 02-02-2023 13:37-0500 Heart rate 65 /min Leticia [place] [employer] Work Phone: [facility] 02-02-2023 13:37-0500 Systolic blood pressure 146 mm[Hg] Leticia [place] [employer] Work Phone: [facility] 09-22-2022 12:15-0400 Body height 190.5 cm Campbell Ball Other [email or web address] Other 09-22-2022 12:15-0400 Diastolic blood pressure 82 mm[Hg] Campbell Ball Other [email or web address] Other 09-22-2022 12:15-0400 Systolic blood pressure 135 mm[Hg] Campbell Ball Other [email or web address] Other 09-17-2022 09:00-0400 Body height 190.5 cm Campbell Ball Other [email or web address] Other 09-17-2022 09:00-0400 Body mass index (BMI) [Ratio] 27.57 kg/m2 Campbell Ball Other [email or web address] Other 09-17-2022 09:00-0400 Body weight 100.06 kg Campbell Ball Other [email or web address] Other 09-17-2022 09:00-0400 Diastolic blood pressure 62 mm[Hg] Campbell Ball Other [email or web address] Other 09-17-2022 09:00-0400 Respiratory rate 12 /min Campbell Ball Other [email or web address] Other 09-17-2022 09:00-0400 Systolic blood pressure 128 mm[Hg] Campbell Ball Other [email or web address] Other 06-18-2022 10:00-0400 Body height 190.5 cm Campbell Ball Other [email or web address] Other 06-18-2022 10:00-0400 Body mass index (BMI) [Ratio] 28.02 kg/m2 Campbell Ball Other [email or web address] Other 06-18-2022 10:00-0400 Body weight 101.7 kg Campbell Ball Other [email or web address] Other 06-18-2022 10:00-0400 Diastolic blood pressure 62 mm[Hg] Campbell Ball Other [email or web address] Other 06-18-2022 10:00-0400 Respiratory rate 12 /min Campbell Ball Other [email or web address] Other 06-18-2022 10:00-0400 Systolic blood pressure 119 mm[Hg] Campbell Ball Other [email or web address] Other 04-08-2022 12:00-0500 Body height 190.5 cm Campbell Ball Other [email or web address] Other 04-08-2022 12:00-0500 Body mass index (BMI) [Ratio] 27.82 kg/m2 Campbell Ball Other [email or web address] Other 04-08-2022 12:00-0500 Body temperature 97.1 [degF] Campbell Ball Other [email or web address] Other 04-08-2022 12:00-0500 Body weight 100.97 kg Campbell Ball Other [email or web address] Other 04-08-2022 12:00-0500 Diastolic blood pressure 68 mm[Hg] Campbell Ball Other [email or web address] Other 04-08-2022 12:00-0500 SaO2% (BldA) [Mass fraction] 97 % Campbell Ball Other [email or web address] Other 04-08-2022 12:00-0500 Systolic blood pressure 124 mm[Hg] Campbell Ball Other [email or web address] Other 03-20-2022 10:00-0500 Body height 190.5 cm Campbell Ball Other [email or web address] Other 03-20-2022 10:00-0500 Body mass index (BMI) [Ratio] 27.95 kg/m2 Campbell Ball Other [email or web address] Other 03-20-2022 10:00-0500 Body weight 101.42 kg Campbell Ball Other [email or web address] Other 03-20-2022 10:00-0500 Diastolic blood pressure 60 mm[Hg] Campbell Ball Other [email or web address] Other 03-20-2022 10:00-0500 Respiratory rate 12 /min Campbell Ball Other [email or web address] Other 03-20-2022 10:00-0500 Systolic blood pressure 112 mm[Hg] Campbell Ball Other [email or web address] Other 01-08-2022 08:47-0400 Body weight 97.52 kg Leonard Dugan MD Work Phone: [facility] 01-08-2022 08:47-0400 Diastolic blood pressure 61 mm[Hg] Leonard Dugan MD Work Phone: [facility] 01-08-2022 08:47-0400 Heart rate 72 /min Leonard Dugan MD Work Phone: [facility] 01-08-2022 08:47-0400 Systolic blood pressure 139 mm[Hg] Leonard Dugan MD Work Phone: [facility] 12-26-2021 08:32-0400 Body temperature 98 [degF] DO Campbell Ball Work Phone: [facility] 12-26-2021 08:32-0400 Diastolic blood pressure 62 mm[Hg] DO Campbell Ball Work Phone: [facility] 12-26-2021 08:32-0400 Heart rate 75 /min DO Campbell Ball Work Phone: [facility] 12-26-2021 08:32-0400 Respiratory rate 18 /min DO Campbell Ball Work Phone: [facility] 12-26-2021 08:32-0400 SaO2% (BldA) [Mass fraction] 98 % DO Campbell Ball Work Phone: [facility] 12-26-2021 08:32-0400 Systolic blood pressure 146 mm[Hg] DO Campbell Ball Work Phone: [facility] 12-17-2021 16:22-0400 Body height 190.5 cm DO Campbell Ball Work Phone: [facility] 12-17-2021 16:22-0400 Body weight 97.52 kg DO Campbell Ball Work Phone: [facility] 12-17-2021 16:19-0400 Body temperature 98.4 [degF] DO Campbell Ball Work Phone: [facility] 12-17-2021 16:19-0400 Diastolic blood pressure 63 mm[Hg] DO Campbell Ball Work Phone: [facility] 12-17-2021 16:19-0400 Heart rate 66 /min DO Campbell Ball Work Phone: [facility] 12-17-2021 16:19-0400 Respiratory rate 16 /min DO Campbell Ball Work Phone: [facility] 12-17-2021 16:19-0400 SaO2% (BldA) [Mass fraction] 96 % DO Campbell Ball Work Phone: [facility] 12-17-2021 16:19-0400 Systolic blood pressure 135 mm[Hg] DO Campbell Ball Work Phone: [facility] 12-16-2021 14:41-0400 Diastolic blood pressure 62 mm[Hg] Leonard Dugan MD Work Phone: [facility] 12-16-2021 14:41-0400 Heart rate 69 /min Leonard Dugan MD Work Phone: [facility] 12-16-2021 14:41-0400 Respiratory rate 16 /min Leonard Dugan MD Work Phone: [facility] 12-16-2021 14:41-0400 Systolic blood pressure 141 mm[Hg] Leonard Dugan MD Work Phone: [facility] 12-11-2021 18:25-0400 Body temperature 97.5 [degF] DO Campbell Ball Work Phone: [facility] 12-11-2021 18:25-0400 Diastolic blood pressure 88 mm[Hg] DO Campbell Ball Work Phone: [facility] 12-11-2021 18:25-0400 Heart rate 67 /min DO Campbell Ball Work Phone: [facility] 12-11-2021 18:25-0400 Respiratory rate 20 /min DO Campbell Ball Work Phone: [facility] 12-11-2021 18:25-0400 SaO2% (BldA) [Mass fraction] 99 % DO Campbell Ball Work Phone: [facility] 12-11-2021 18:25-0400 Systolic blood pressure 175 mm[Hg] DO Campbell Ball Work Phone: [facility] 12-11-2021 16:57-0400 Body height 190.5 cm DO Campbell Ball Work Phone: [facility] 12-11-2021 16:57-0400 Body weight 98.5 kg DO Campbell Ball Work Phone: [facility] 12-10-2021 10:50-0400 Body weight 95.25 kg Nurse Kapoor Work Phone: [facility] 12-10-2021 10:50-0400 Diastolic blood pressure 80 mm[Hg] Nurse Emelia Work Phone: [facility] 12-10-2021 10:50-0400 Heart rate 59 /min Nurse Emelia Work Phone: [facility] 12-10-2021 10:50-0400 Systolic blood pressure 152 mm[Hg] Nurse Emelia Work Phone: [facility] 12-09-2021 14:27-0400 Body weight 95.25 kg [employer] [place] Work Phone: [facility] 12-09-2021 14:27-0400 Diastolic blood pressure 68 mm[Hg] [employer] Work Phone: [facility] 12-09-2021 14:27-0400 Heart rate 70 /min [employer] Work Phone: [facility] 12-09-2021 14:27-0400 Systolic blood pressure 164 mm[Hg] [employer] Work Phone: [facility] 11-12-2021 11:23-0400 Body weight 96.16 kg Leonard Dugan MD Work Phone: [facility] 11-12-2021 11:23-0400 Diastolic blood pressure 73 mm[Hg] Leonard Dugan MD Work Phone: [facility] 11-12-2021 11:23-0400 Heart rate 56 /min Leonard Dugan MD Work Phone: [facility] 11-12-2021 11:23-0400 Systolic blood pressure 162 mm[Hg] Leonard Dugan MD Work Phone: [facility] Encounters Encounter Date Encounter Type Care Provider Facility Start: 04-15-2023 End: 04-15-2023 ambulatory Campbell Naranjo Other [employer] Other Start: 04-15-2023 Telephone encounter Campbell SINGH [facility] Start: 03-17-2023 End: 03-17-2023 ambulatory Campbell Naranjo Other [email or web address] Other Start: 03-17-2023 Transitional care manage srvc 14 day discharge Campbell Naranjo [facility] Start: 03-04-2023 End: 03-04-2023 ambulatory Campbell Naranjo Other [email or web address] Other Start: 03-04-2023 Telephone encounter Campbell SINGH [facility] Start: 02-23-2023 End: 02-23-2023 ambulatory Campbell Naranjo Other [email or web address] Other Start: 02-23-2023 Office outpatient vi sit 15 minutes Campbell Naranjo [facility] Start: 02-23-2023 Telephone encounter Campbell SINGH [facility] Start: 02-19-2023 End: 02-19-2023 ambulatory Campbell Naranjo Other [email or web address] Other Start: 02-19-2023 Office outpatient vi sit 15 minutes Campbell Naranjo [facility] Start: 02-02-2023 End: 02-02-2023 ambulatory LETICIA MILIAN Facility:[facility] Start: 02-02-2023 End: 02-02-2023 Patient encounter procedure Leticia Milian [employer] Work Phone: Urology Comment on above: BPH with obstruction /lower urinary tract symptoms (Primary Dx); Recurrent UTI; Weak urinary stream Start: 01-19-2023 End: 01-19-2023 ambulatory LETICIA MILIAN Facility:[facility] Start: 01-13-2023 End: 01-13-2023 Emergency department patient visit Campbell Naranjo Facility:[facility] Start: 01-13-2023 End: 01-13-2023 Emergency department patient visit DO Campbell Naranjo Work Phone: [facility] Work Phone: Start: 12-21-2022 End: 12-21-2022 ambulatory Campbell Naranjo Other [email or web address] Other Start: 12-21-2022 Telephone encounter [facility] Start: 09-22-2022 End: 09-22-2022 ambulatory Campbell Naranjo Other [email or web address] Other Start: 09-22-2022 Office outpatient vi sit 15 minutes Campbell Naranjo [facility] Start: 09-20-2022 End: 09-20-2022 ambulatory Cornell Baptiste Other [email or web address] Other Start: 09-20-2022 Encounter by [employer] raissa Baptiste [facility] Start: 09-17-2022 End: 09-17-2022 ambulatory Campbell Naranjo Other [email or web address] Other Start: 09-17-2022 Office outpatient vi sit 25 minutes Campbell Naranjo [facility] Start: 09-15-2022 End: 09-15-2022 ambulatory Cornell Baptiste Other [email or web address] Other Start: 09-15-2022 Encounter by [employer] raissa Baptiste [facility] Start: 07-28-2022 End: 07-28-2022 ambulatory LETICIA Kin MILIAN Facility:[facility] Start: 07-20-2022 End: 07-20-2022 ambulatory LETICIA MILIAN Facility:[facility] Start: 06-25-2022 End: 06-26-[address] CAMPBELL NARANJO Facility:[facility] Start: 06-18-2022 End: 06-18-2022 ambulatory Campbell Naranjo Other [email or web address] Other Start: 06-18-2022 Office outpatient vi sit 25 minutes Campbell Naranjo [facility] Start: 06-02-2022 End: 06-03-[address] CAMPBELL NARANJO Facility:[facility] Start: 04-08-2022 End: 04-08-2022 ambulatory Campbell Naranjo Other [email or web address] Other Start: 04-08-2022 Office outpatient vi sit 15 minutes Campbell Naranjo [facility] Start: 03-24-2022 End: 03-24-2022 ambulatory Campbell Naranjo Other [email or web address] Other Start: 03-24-2022 Telephone encounter Campbell SINGH [facility] Start: 03-20-2022 Office outpatient vi sit 25 minutes Campbell Naranjo [facility] Start: 03-20-2022 End: 03-21-[address] CAMPBELL NARANJO [facility] [email or web address] Other Start: 01-08-2022 End: 01-08-2022 Patient encounter procedure Leonard Dugan MD Work Phone: Urology Comment on above: Chronic epididymitis (Primary Dx); Left hydrocele; Weak urinary stream; BPH without obstruction/lower urinary tract symptoms; Epididymitis Start: 01-07-2022 Refill Leonard Dugan MD Work Phone: Urology Comment on above: Refill Request Start: 12-26-2021 End: 12-26-2021 ambulatory DO Campbell Naranjo Work Phone: [facility] Work Phone: Start: 12-26-2021 End: 12-26-2021 Discharged Recurring DO Campbell Naranjo Work Phone: [facility]Infusion Therapy - O/P Start: 12-25-2021 End: 12-26-[address] CAMPBELL NARANJO Facility: Start: 12-17-2021 End: 12-17-2021 Emergency department patient visit DO Campbell Naranjo Work Phone: [facility] Start: 12-16-2021 End: 12-16-2021 Patient encounter procedure Leonard Dugan MD Work Phone: Urology Comment on above: Retention of urine ( Primary Dx); Flaccid bladder Start: 12-15-2021 Telephone encounter Leticia puentes APRN.CNP Work Phone: Urology Comment on above: Patient Update Start: 12-11-2021 End: 12-11-2021 Emergency department patient visit DO Campbell Naarnjo Work Phone: [facility] Start: 12-11-2021 Telephone encounter Leonard Dugan MD Work Phone: Urology Comment on above: Patient Update Start: 12-10-2021 End: 12-10-2021 Nursing evaluation of patient and report Nurse [facility] Work Phone: Urology Comment on above: Urinary tract infect ion without hematuria, site unspecified (Primary Dx); Feeling of incomplete bladder emptying; Benign prostatic hyperplasia with urinary retention Start: 12-09-2021 End: 12-09-2021 Nursing evaluation of patient and report [employer] Work Phone: Urology Comment on above: Urinary frequency (P rimary Dx); Urinary urgency; Urinary straining; Feeling of incomplete bladder emptying Start: 12-08-2021 Telephone encounter Leonard Dugan MD Work Phone: Urology Comment on above: Appointment (Resched ule catheter change) Start: 11-26-2021 End: 11-27-2021 Emergency department patient visit CAMPBELL NARANJO Facility:[facility] Start: 11-21-2021 Telephone encounter Leonard [...] Emergency department patient visit RAN LEES JR Facility:[facility] Start: 10-23-2021 End: 10-24-[address] CAMPBELL NARANJO Facility:[facility] Start: 10-21-2021 End: 10-22-[address] CAMPBELL NARANJO Facility:[facility] Start: 10-20-2021 Adult health examination Campbell Naranjo Other [email or web address] Other Start: 07-17-2021 End: 07-18-[address] CAMPBELL NARANJO Facility: Start: 01-09-2020 End: 01-09-2020 Pre-procedure evaluation check Campbell Naranjo Other [facility] [email or web address] Other Procedures Date Procedure Procedure Detail Performing [...] microalbumin profile DTaP,Tdap,Td Vaccine (3 - Tdap) [facility] Start: 11-13-2022 Covid-19 Vaccine ( season) Covid-19 Vaccine ( season) [facility] Start: 03-15-2022 Advance Directive Discussion Advance Directive Discussion [facility] Start: 03-15-2022 Depression Assessment Depression Ass essment [facility] Start: 01-08-2022 End: 03-10-2022 Bacteria identified in Urine by Culture URINE CULTURE Microbiology Routine Left hydrocele Chronic epididymitis Weak urinary stream BPH without obstruction/lower urinary tract symptoms Epididymitis Expected: 01/08/2022 (Approximate), Expires: 03/10/2022 [facility] Work Phone: Comment on above: Expected: 01/08/2022 (Approximate), Expires: 03/10/2022 Start: 01-08-2022 End: 03-10-2022 URINALYSIS, REFLEX MICROSCOPIC URINALYSIS, REFLEX MICROSCOPIC Lab Routine Left hydrocele Chronic epididymitis Weak urinary stream BPH without obstruction/lower urinary tract symptoms Epididymitis Expected: 01/08/2022 (Approximate), Expires: 03/10/2022 [facility] Work Phone: Comment on above: Expected: 01/08/2022 (Approximate), Expires: 03/10/2022 Start: 12-10-2021 End: 02-09-2022 Bacteria identified in Urine by Culture URINE CULTURE Microbiology Routine Urinary tract infection without hematuria, site unspecified Expected: 12/10/2021, Expires: 02/09/2022 [facility] Work Phone: Comment on above: Expected: 12/10/2021 , Expires: 02/09/2022 Start: 11-13-2021 Influenza vaccination INFLUENZA (#1) [facility] Start: 11-12-2021 URODYNAMICS URODYNAMICS Pr ocedures Routine 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 Expected: 11/12/2021 (Approximate) [facility] Work Phone: Comment on above: Expected: 11/12/2021 (Approximate) Start: 08-11-2021 COVID-19 VACCINE (5 - Booster for Pfizer series) COVID-19 VACCINE (5 - Booster for Pfizer series) [facility] Start: 03-15-2021 ADVANCE DIRECTIVE DISCUSSION ADVANCE DIRECTIVE DISCUSSION [facility] Start: 03-15-2021 DEPRESSION ASSESSMENT DEPRESSION ASS ESSMENT [facility] Start: 05-26-2012 3 comp foot exam completed DIABETIC FOOT EXAM [facility] Start: 1998 Hepatitis B Vaccine (1 of 3 - Risk 3-dose series) Hepatitis B Vaccine (1 of 3 - Risk 3-dose series) [facility] Start: 1998 RSV Vaccine (1 - 1-d ose 60+ series) RSV Vaccine (1 - 1-dose 60+ series) [facility] Start: 1988 SHINGRIX VACCINE (1 of 2) SHINGRIX VACCINE (1 of 2) [facility] Start: 1957 Urine microalbumin profile DTAP,TDAP,TD (1 - Tdap) [facility] Start: 1956 Hepatitis B surface antibody level LDL CHOLESTEROL [facility] Start: 1948 Hepatitis B screening URINE ALBUMIN:CREATININE RATIO [facility] Start: 1948 Hepatitis C antibody , confirmatory test DILATED RETINAL EXAM [facility] Start: 1944 PNEUMOCOCCAL: 65+ (1 - PCV) PNEUMOCOCCAL: 65+ (1 - PCV) [facility] Start: 1943 Hemoglobin A1c/Hemoglobin.total in Blood HBA1C [facility] Bacteria identified in Urine by Culture [facility] End: 02-02-2024 Bacteria identified in Urine by Culture URINE CULTURE Microbiology Routine Recurrent UTI 5 Occurrences starting 02/02/2023 until 02/02/2024 [facility] Work Phone: Comment on above: 5 Occurrences starti ng 02/02/2023 until 02/02/2024 Patient Education [facility] Work Phone: Patient referral [facility] Work Phone: End: 01-14-2024 Urinalysis complete panel - Urine URINALYSIS, WITH MICROSCOPIC Lab Routine Recurrent UTI 5 Occurrences starting 02/02/2023 until 01/14/2024 [facility] Work Phone: Comment on above: 5 Occurrences starti ng 02/02/2023 until 01/14/2024 [facility] Immunizations Immunization Date Immunization Notes Care Provider Jens eid 12-01-2022 influenza, high dose seasonal, preservative-free Campbell Naranjo Other [email or web address] Other 12-19-2021 influenza virus vaccine, split virus (incl. purified surface antigen) Campbell Naranjo Other [email or web address] Other 12-10-2020 influenza virus vaccine, split virus (incl. purified surface antigen) Campbell Naranjo Other [email or web address] Other 01-09-2020 influenza virus vaccine, split virus (incl. purified surface antigen) Campbell Naranjo Other [email or web address] Other 01-14-2018 influenza virus vaccine, split virus (incl. purified surface antigen) Campbell Naranjo Other [email or web address] Other 12-30-2016 influenza virus vaccine, split virus (incl. purified surface antigen) Campbell Naranjo Other [email or web address] Other 03-16-2016 influenza virus vaccine, split virus (incl. purified surface antigen) Campbell Naranjo Other [email or web address] Other 05-01-2015 pneumococcal conjuga te vaccine, 13 valent Campbell Naranjo Other [email or web address] Other 05-01-2015 pneumococcal Conjuga te, unspecified formulation; Translations: [Need for prophylactic vaccination against Streptococcus pneumoniae (pneumococcus)] Campbell Naranjo Other [email or web address] Other 12-28-2012 tetanus and diphther ia toxoids, adsorbed, preservative free, for adult use (5 Lf of tetanus toxoid and 2 Lf of diphtheria toxoid) Campbell Naranjo Other [email or web address] Other 01-28-2012 diphtheria, tetanus toxoids and acellular pertussis vaccine, unspecified formulation Campbell Naranjo Other [email or web address] Other 01-20-2012 pneumococcal polysaccharide vaccine, 23 valent Campbell Naranjo Other [email or web address] Other 05-18-2011 pneumococcal polysaccharide vaccine, 23 valent Campbell Naranjo Other [email or web address] Other Payers Date Payer Category Payer Self-pay 2016 Unknown [employer] SUPP[employer]MENT [id number] 2016-Present [phone] [address] [place] [address] Indemnity [id number] 2003 Medicare MEDICARE MEDICAR E A AND B [id number] 2003-Present [phone] [address] [address] [place] [address] Medicare [id number] 1959 Medicare [id number] 1959 Medicare [id number] 1938 Unknown [id number] 3 1938 Unknown [id number] 3 1938 Unknown [id number] 3 1938 Unknown [id number] 3 1938 Unknown [id number] 3 1938 Unknown [id number] 3 1938 Unknown [id number] 3 1938 Unknown [id number] 3 Medicare Medicare Outpatient [id number] Unknown [facility] Insur [id number] Unknown [id number] 1 Social History Date Type Detail Facility Start: 10-24-2009 End: 12-16-2021 Tobacco smoking status NHIS Ex-smoker [facility] End: 03-15-1971 History of tobacco use Current smoker [facility] End: 03-15-1971 History of tobacco use Cigarette Smoker [facility] Start: 10-24-2009 End: 07-28-2022 Cigarettes smoked current (pack per day) - Reported 1.5 [facility] Start: 11-07-2021 End: 12-16-2021 Alcohol intake Current drinker of alcohol (finding) [facility] Start: 1940 Sex Assigned At Not on file [facility] Start: 10-28-2021 End: 01-08-2022 Exposure to SARS-CoV-2 (event) Not sure [facility] Start: 12-11-2021 End: 12-17-2021 Tobacco smoking status NHIS Never smoked tobacco (finding) [facility] Start: 1940 Sex Assigned At Male F [facility] Start: 12-16-2021 Tobacco use and exposure Smokeless tobacco non-user [facility] Start: 12-16-2021 End: 07-28-2022 Sex Assigned At [facility] [employer] Other National Score (1-10 0), lower number is lower risk 61 [facility] Medical Equipment Procedure Code Equipment Code [...] to restart Amlodipine. Continue PAUL for now. [email or web address] Other 12-12-2023 Evaluation note* Encounter Date Diagnosis [...] and inserts to prevent callus formation.Fall precautions. [email or web address] Other 12-08-2023 Evaluation note* Encounter Date Diagnosis [...] ulcers. Recommend routine foot care w/ Podiatry [email or web address] Other 11-21-2023 NoteHNO ID: [id number] Author: Leticai Milian APRN.WIRE PRODUCTS INSPECTOR Service: ? Author Type: Nurse Practitioner Type: Progress Notes Filed: 02/02/2023 2:13 PM Note Text: Norberto Washington [address] [facility] [address] HISTORY OF PRESENT ILLNESS: Seen 07/28/22 for [...] see lab Duration: BPH w obs/luts, UTI [employer] SYMPTOMS SCORE. 1. INCOMPLETE EMPTYING [...] only if s (more content not included)... [facility]11-21-2023 Miscellaneous Notes* Addendum Note - Leticia Milian APRN.CNP - 02/02/2023 2:16 PM ESTAddended by: LETICIA MILIAN on: 02/02/2023 02:16 PM Modules accepted: Orders documented in this encounterWood [facility]11[facility] History of Present illness Narrative* Leticia Milian APRN.CNP - 02/02/2023 1:40 PM EST Norberto Washington [address] [facility] [address] HISTORY OF PRESENT ILLNESS: Seen 07/28/22 for [...] see lab Duration: BPH w obs/luts, UTI [employer] SYMPTOMS SCORE. 1. INCOMPLETE EMPTYING [...] Making Level: 4 - Moderate Leticia Milian APRN.WIRE PRODUCTS INSPECTOR documented in this encounterWood [facility] Hospital07-11-2023 Evaluation note* Encounter Date Diagnosis Assessment [...] w/ acute infection Requires no additional treatment [email or web address] Other 07-06-2023 Evaluation note* Encounter Date Diagnosis [...] exercise for 30 minutes, 3-5 times weekly. [email or web address] Other 05-16-2023 NoteHNO ID: [id number] Author: Leticia Milian APRN.WIRE PRODU[employer] INSPECTOR Service: ? Author Type: Nurse Practitioner Type: Progress Notes Filed: 07/30/2022 4:34 PM Note Text: Norberto Washington [address] [facility] [address] HISTORY OF PRESENT ILLNESS: Seen 01/20/22 for [...] 07/20/22=neg UA 07/20/22=leuk esterase 250, wbc 11-25 [employer] SYMPTOMS SCORE. 1. INCOMPLETE EMPTYING [...] obs/luts, AUA, PVR Med (more content not included)...[facility]04-06-2023 Evaluation note* Encounter Date Diagnosis Assessment [...] w/ antibiotics and treatment of urinary retention [email or web address] Other 03-21-2023 NotePROCEDURE: XR FOOT LT MIN [...] Electronically authenticated by: SAMY TORRES Date: 2022-06-02 15:48[facility]03-21-2023 NotePROCEDURE: XR FOOT LT MIN 3 [...] Electronically authenticated by: SAMY TORRES Date: 2022-06-02 15:48[facility]01-25-2023 Evaluation note* Encounter Date Diagnosis Assessment [...] lesion was treated w/ cryotherapy w/o complications [email or web address] Other 01-06-2023 Evaluation note* Encounter Date Diagnosis [...] Mar, Hesitancy of micturition (ICD-10 - R39.11) [email or web address] Other 10-27-2022 History of Present illness Narrative* Zuleika Hackett - 01/08/2022 8:20 AM EDT Norberto Washington [address] [place] [id number] Mr. Washington presents with chief complaints of: Enlarged L testicle. ED 11/07/21: PVR 179 cc, refused a catheter, scheduled to undergo a cystoscopy in [place] but was cancelled due to his urologist [...] epididymitis Hydroceles: None Spermatoceles: None Varicoceles: None [employer] SYMPTOMS SCORE. Date 01/08/2022 1. [...] complete. Leonard Dugan M.D. documented in this encounterWood [facility] Hospital10-05-2022 Hospital Discharge instructions Additional Instructions Continue taking Flomax as prescribed Avoid drinking any fluids several hours before bed Call your urologist tomorrow for a follow-up appointment Return if you are unable to urinate, develop blood in your urine, abdominal pain, feversOhio[facility] Work Phone: [phone] History of Present illness Narrative* Leonard Dugan MD - 12/16/2021 2:51 PM EDT Norberto Washington [address] [place] [id number] HISTORY OF PRESENT ILLNESS: ED 11/07/21: PVR 179 cc, refused a catheter, scheduled to undergo a cystoscopy in [place] but was cancelled due to his urologist [...] Otherwise, intermittent catheterization. Agreed indwelling catheter 18 mauritian. Flomax will not work, no prostate tissue [...] Moderate Leonard Dugan MD documented in this encounterWood [facility] Hospital10-03-2022 Miscellaneous Notes* Telephone Encounter - Valente Bell LPN - 12/15/2021 3:58 PM EDT Called and spoke to patient regarding message below. Patient states understanding to information provided. No further action required at this time. * Telephone Encounter - Leticia Milian APRN.CNP - 12/15/2021 10:13 AM EDT Please call and confirm that pt received [facility] message to start new script sent for antibiotic. Thanks Leticia MONDRAGON documented in this encounterWood County Hospital09-29-2022 Miscellaneous Notes* Telephone Encounter - Valente [...] be draining normally now. documented in this encounterWood County Hospital09-28-2022 Nurse Note* Stephanie Kaur RN - [...] hyperplasia with urinary retention documented in this encounterWood [facility] Hospital09-27-2022 History of Present illness Narrative* Leonard Dugan MD - 12/09/2021 5:05 PM EDT [facility] PHYSICIAN INTERPRETATION: [...] contractility Leonard Dugan MD documented in this encounterWood County Hospital09-27-2022 Nurse Note* Stephanie Kaur RN - 12/09/2021 3:57 PM EDT [facility] URODYNAMICS LAB [...] of incomplete bladder emptying documented in this encounterWood County Hospital09-26-2022 Miscellaneous Notes* Telephone Encounter - Stephanie Kaur RN - 12/08/2021 4:11 PM EDT LM for patient to reschedule catheter change for tomorrow. Last changed 11/26/21 in ED. Will be due for change on 12/23/21. Stephanie Kaur R.N. documented in this encounterWood County Hospital09-12-2022 Miscellaneous Notes* Telephone Encounter - Sonia [...] has been busy with his spouse at [facility] having to care for her needs and hadn't called earlier when it first started on Wednesday. He was hoping it would clear up but it has not, urine is between [place] tint & Brown and he does see small clots. Patient does have pain at the end of his Penis slight swelling noted (he has been applying Neosporin) Denies difficulty with urine draining into [place] bag, he does not have back pain Please advise documented in this encounterWood County Hospital08-31-2022 Nurse Note* Stephanie Kaur RN - [...] Education Session: None Instruction Provided To: Patient Turkey Roll Maker Present: not applicable Discipline: Nursing Learning Topic: [...] supervision. Stephanie Kaur RN documented in this encounterWood County Hospital08-31-2022 Procedure note* Leonard Dugan MD - 11/12/2021 11:00 AM EDTProcedure(s): CYSTOSCOPY Pre-Procedure Diagnose(s): BPH with obstruction/lower urinary tract symptoms Post-Procedure Diagnose(s): BPH with obstruction/lower urinary tract symptoms PROCEDURE: CYSTOSCOPY INDICATIONS: ED 11/07/21: PVR 179 cc, refused a catheter, scheduled to undergo a cystoscopy in [place] but was cancelled due to his urologist [...] Otherwise, intermittent catheterization. Agreed indwelling catheter 18 mauritian. By signing my name below, I, Zuleika [...] complete. Leonard Dugan M.D. documented in this encounterWood County Hospital08-29-2022 History of Present illness Narrative* Leonard Dugan MD - 11/10/2021 12:11 PM EDT Cysto with uroflow 11-12-21 ED 11/07/21: PVR 179 cc, refused a catheter, scheduled to undergo a cystoscopy in [place] but was cancelled due to his urologist was sick Pt underwent TURP x2 within a week AUA= 3-5 wach ROSAMARIA 11/10/21 - 10 gm, rubbery, no nodules US 11/07/21:= mildly complex renal cysts UA and culture 11-07-21= -ve May need UDS based on cysto documented in [facility]* Diagnosis BPH with obstruction/lower urinary tract symptoms- Primary Hypertrophy of prostate with urinary obstruction and other lower urinary tract symptoms (LUTS) Benign prostatic hyperplasia with urinary retention documented [facility] this encounter [facility]* Diagnosis Urinary frequency- Primary Urinary urgency Urgency of urination Urinary straining Straining on urination Feeling of incomplete bladder emptying Incomplete bladder emptying documented [facility] this encounter [facility]* Diagnosis Urinary tract infection without hematuria, site unspecified- Primary Feeling of incomplete bladder emptying Incomplete bladder emptying Benign prostatic hyperplasia with urinary retention documented in this encounter [facility] noteNo assessment information availableUniversity Hospitals Ahu[facility] Work Phone: Evaluation note* Diagnosis Retention of urine- Primary Retention of urine, unspecified Flaccid bladder Neurogenic bladder, NOS documented in this encounter [facility]* Diagnosis Chronic epididymitis- Primary Left hydrocele Hydrocele, unspecified Weak urinary stream Slowing of urinary stream BPH without obstruction/lower urinary tract symptoms Hypertrophy of prostate without urinary obstruction and other lower urinary tract symptoms (LUTS) Epididymitis Orchitis and epididymitis, unspecified documented in this encounter [facility] HospitalEvaluation noteNo InformationNortExcela [email or web address] Other Evaluation note* Diagnosis BPH with obstruction/lower urinary tract symptoms- Primary Hypertrophy of prostate with urinary obstruction and other lower urinary tract symptoms (LUTS) Recurrent UTI Urinary tract infection, site not specified Weak urinary stream Slowing of urinary stream documented in this encounter [facility] general Narrative - Reported* Type [...] cystoscopy 09.20.2019 Hospitalization History see surgical history [email or web address] Other Reason for referral (narrative)* Outpatient Procedure (Routine) - Pending Review Specialty Diagnoses / Procedures Referred By Marce dillon Referred To Contact 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 Procedures URODYNAMICS MAGGY POST-VOIDING RESIDUAL URINE&/BLADDER CAP Leonard Dugan MD [address] [place] [address] [facility] [address] [place] [address] Referral ID Status Reason Start Date Expiration Date Visits Requested Visits Authorized [id number] Pending Review Auto-Generat ed Referral 11/12/2021 11/12/2022 1 1 [facility] Summary Purpose Family History No Family [...] toe of right foot (M20.41) Referral Organization [facility] Medical tram Referring Provider First Name Campbell Referring Provider Last Name Quentin Referring Provider Specialty Internal Me dicine Referred Organization [facility] Referred Provider Jhon Tejada Referred Address [address], [place],[address] Referred Provider Specialty Podiatry - S urgical [...] and content) DATE CREATED AUTHOR 11/04/2021 [facility] DATE CREATED AUTHOR AUTHOR'S ORGANIZ ATION 12/13/2021 [facility] DATE CREATED AUTHOR AUTHOR'S ORGANIZ ATION 06/25/2022 [facility] DATE CREATED AUTHOR AUTHOR'S ORGANIZ ATION 01/14/2023 [facility] DATE CREATED AUTHOR AUTHOR'S ORGANIZ ATION 02/04/2023 [facility] Source Comments (unrecognize d section and content) In the event this informatio n is protected by the Federal Confidentiality of Alcohol and Drug Abuse Patient Records regulations: The Federal rules restrict any use of the information to criminally investigate or prosecute any alcohol or drug abuse patient.[facility] HospitalIn the event this information is protected by the Federal Confidentiality of Alcohol and Drug Abuse Patient Records regulations: The Federal rules restrict any use of the information to criminally investigate or prosecute any alcohol or drug abuse patient.[facility] HospitalIn the event this information is protected by the Federal Confidentiality of Alcohol and Drug Abuse Patient Records regulations: The Federal rules restrict any use of the information to criminally investigate or prosecute any alcohol or drug abuse patient.[facility] HospitalIn the event this information is protected by the Federal Confidentiality of Alcohol and Drug Abuse Patient Records regulations: The Federal rules restrict any use of the information to criminally investigate or prosecute any alcohol or drug abuse patient.[facility] HospitalIn the event this information is protected by the Federal Confidentiality of Alcohol and Drug Abuse Patient Records regulations: The Federal rules restrict any use of the information to criminally investigate or prosecute any alcohol or drug abuse patient.[facility] HospitalIn the event this information is protected by the Federal Confidentiality of Alcohol and Drug Abuse Patient Records regulations: The Federal rules restrict any use of the information to criminally investigate or prosecute any alcohol or drug abuse patient.[facility] HospitalIn the event this information is protected by the Federal Confidentiality of Alcohol and Drug Abuse Patient Records regulations: The Federal rules restrict any use of the information to criminally investigate or prosecute any alcohol or drug abuse patient.[facility] HospitalIn the event this information is protected by the Federal Confidentiality of Alcohol and Drug Abuse Patient Records regulations: The Federal rules restrict any use of the information to criminally investigate or prosecute any alcohol or drug abuse patient.[facility] HospitalIn the event this information is protected by the Federal Confidentiality of Alcohol and Drug Abuse Patient Records regulations: The Federal rules restrict any use of the information to criminally investigate or prosecute any alcohol or drug abuse patient.[facility] HospitalIn the event this information is protected by the Federal Confidentiality of Alcohol and Drug Abuse Patient Records regulations: The Federal rules restrict any use of the information to criminally investigate or prosecute any alcohol or drug abuse patient.[facility] HospitalIn the event this information is protected [...] or prosecute any alcohol or drug abuse patient.[facility] Care Teams (unrecognized sec tion and content) Team Status: Active Member Role Status Dates Campbell Naranjo , Primary Care Provider Active Team Status: Inactive Member Role Status Dates Campbell Naranjo , Primary Care Provider Active Low Carter DO Emergency Provider Active Grapple Yarder Operator Relationship Specialty Start Date End Date Ran Lees Jr. PCP - General 10/10/09 Grapple Yarder Operator Relationship Specialty Start Date End Date Ran Lees Jr. PCP - General 10/10/09 Grapple Yarder Operator Relationship Specialty Start Date End Date Ran Lees Jr. PCP - General 10/10/09 Grapple Yarder Operator Relationship Specialty Start Date End Date Campbell Naranjo Dakota, DO [address] [facility] [address] PCP - General Internal Medicine 11/26/21 Grapple Yarder Operator Relationship Specialty Start Date End Date Campbell Naranjo, DO [address] [place] [address] PCP - General Internal Medicine 11/26/21 Grapple Yarder Operator Relationship Specialty Start Date End Date Campbell Naranjo, DO [address] [place] [address] PCP - General Internal Medicine 11/26/21 Grapple Yarder Operator Relationship Specialty Start Date End Date Campbell Naranjo Dakota, DO [address] [place] [address] PCP - General Internal Medicine 11/26/21 Team Status: Inactive Member Role Status Dates Campbell Naranjo DO Primary Care Provider Active Davis Cervantes MD Emergency Provider Active Grapple Yarder Operator Relationship Specialty Start Date End Date Campbell Naranjo, DO [address] [place] [facility] [address] PCP - General Internal Medicine 11/26/21 Team Status: Inactive Member Role Status Dates Campbell Naranjo , Primary Care Provider Active Sam Simons , Emergency Provider Active Team Status: Inactive Member Role Status Dates Campbell Naranjo , DO Primary Care Provider Active Sam Simons , DO Attending Provider Active Grapple Yarder Operator Relationship Specialty Start Date End Date Campbell Naranjo, DO [address] [place] [address] PCP - General Internal Medicine 11/26/21 Grapple Yarder Operator Relationship Specialty Start Date End Date Campbell Naranjo, DO [address] [place] [facility] [place] [address] PCP - General Internal Medicine 11/26/21 Grapple Yarder Operator Relationship Specialty Start Date End Date Campbell Naranjo, DO [address] [place] [address] PCP - General Internal Medicine 11/26/21 Reason [...] BE BASED ON THE PRIMARY CLINICAL RECORDS. [facility]. provides no warranty or guarantee of the accuracy or completeness of information in this document.
[2023-04-17 19:33] VITALS: BP 159/78; PULSE 78; RESP 18; TEMP 36.6; O2SAT 97; BMI 27.6
[2023-04-17 20:21] LABS: Glucometer 97 mg/dL (74-106)
[2023-04-17 20:31] VITALS: O2SAT 96
[2023-04-17] MEDS: LISINOPRIL 20 MG TABLET PO (21:21)
[2023-04-17] MEDS: PIPERACILLIN SODIUM/TAZOBACTAM 3.375 GM in 0.9 % SODIUM CHLORIDE 50 ML IV (21:22)
[2023-04-17] MEDS: LACTATED RINGER'S SOLUTION 1,000 ML 100 ML IV (21:22)
[2023-04-17] MEDS: GABAPENTIN 300 MG CAPSULE PO (21:28)
[2023-04-17] MEDS: VANCOMYCIN HCL 2,000 MG in 0.9 % SODIUM CHLORIDE 500 ML 250 MG IV (22:12)
[2023-04-18] VITALS (7 sets, daily range): BP systolic 137–145; BP diastolic 54–75; PULSE 64–88; RESP 15–20; TEMP 36.5–36.8; O2SAT 94–97
[2023-04-18] MEDS: PIPERACILLIN SODIUM/TAZOBACTAM 3.375 GM in 0.9 % SODIUM CHLORIDE 50 ML IV ×3 (05:40→21:40)
[2023-04-18] MEDS: GABAPENTIN 300 MG CAPSULE PO ×3 (05:40→21:41)
[2023-04-18 05:58] LABS: Basophils Absolute Auto 0.1 10^3/uL (0.0-0.1); Basophils Percent Auto 0.7 % (0.2-2.0); Eosinophils Absolute Auto 0.2 10^3/uL (0.0-0.7); Eosinophils Percent Auto 2.8 % (0.9-7.0); Erythrocyte Sedimentation Rate 34 mm/hr (<=20); Hematocrit 34.1 % (42.0-54.0); Hemoglobin 11.6 g/dL (14.0-18.0); Immature Granulocytes Abs Auto 0.03 10^3/uL (0.00-0.03); Immature Granulocytes Pct Auto 0.4 % (0.0-0.5); Lymphocytes Absolute Auto 1.7 10^3/uL (1.2-3.8); Lymphocytes Percent Auto 22.6 % (20.5-60.0); Mean Corpuscular Hemoglobin 31.4 pg (25.9-34.0); Mean Corpuscular Volume 92.2 fL (80.0-94.0); Mean Platelet Volume 9.1 fL (9.5-13.5); Monocytes Absolute Auto 1.2 10^3/uL (0.3-0.8); Monocytes Percent Auto 16.6 % (1.7-12.0); Neutrophils Absolute Auto 4.2 10^3/uL (1.4-6.5); Neutrophils Percent Auto 56.9 % (43.0-75.0); Platelet Count 245 10^3/uL (150-450); Red Cell Distribution Width 11.3 % (11.0-15.0); White Blood Count 7.5 10^3/uL (4.0-11.0)
[2023-04-18 06:13] LABS: Alanine Aminotransferase 18 U/L (16-63); Albumin Globulin Ratio 0.9; Albumin Level 2.9 g/dL (3.4-5.0); Alkaline Phosphatase 47 U/L (46-116); Anion Gap 11.5; Aspartate Amino Transferase 15 U/L (15-37); BUN Creatinine Ratio 19.1; Bilirubin Total 0.6 mg/dL (0.2-1.0); Calcium 8.2 mg/dL (8.5-10.1); Carbon Dioxide 25.8 mmol/L (21.0-32.0); Chloride 100 mmol/L (98-107); Estimated GFR (African America >60 (>=60); Estimated GFR (Non-African Ame >60 (>=60); Globulin 3.4 g/dL; Glucose 91 mg/dL (74-106); Potassium 4.3 mmol/L (3.5-5.1); Sodium 133 mmol/L (136-145); Total Protein 6.3 g/dL (6.4-8.2)
[2023-04-18 06:31] LABS: C Reactive Protein 2.41 mg/dL (<=0.50)
--- NOTE | 2023-04-18 07:28 | PM.CN ---
Consult Note: [facility] Data of Consult Consult date: 04/18/23 Requesting Physician: Austyn Kelley MD Primary Care Provider: Campbell Naranjo DO Consult Narrative Reason for consult: Right foot infection Narrative: patient is an 83-year-old male welll known to our wound center and has a history of nonhealing diabetic foot ulcerations. Most recently he has been treated for right 3rd and 5th toe wounds with local wound care. He presented to the emergency department on 04/12/23 and was placed on oral antibiotics. Reportedly he was not taking them as prescribed and hiss erythema redness and tenderness to the 5th toe and increased prompting him to present to the emergency department as recommended by his home health nurse. His vital signs are staable upon presentation. WBC was eleven thousand upon presentation which has since normalized. ESR is thirty-four and CRP is 2.41. At bedside he relates that the 3rd toe wound has nearly healed but he has tenderness over the 5th toe with erythema to the level of the forefoot. No active drainage. systemic signs of infection cc:: CC: Austyn Kelley MD Review of Systems ROS Status of ROS 10 or more systems reviewed and unremarkable except as noted in history and below [facility] Medical History (Updated 04/17/23 @ 17:18 by MOMO Kirkland) HLD (hyperlipidemia) ?E78.5 - Hyperlipidemia, unspecified (ICD-10) Diabetic infection of right foot ?E11.628 - Type 2 diabetes mellitus with other skin complications (ICD-10) ?L08.9 - Local infection of the skin and subcutaneous tissue, unspecified (ICD-10) Neuropathy ?G62.9 - Polyneuropathy, unspecified (ICD-10) Fracture, ankle ?S82.899A - Other fracture of unspecified lower leg, initial encounter for closed fracture (ICD-10) Benign prostate hyperplasia ?N40.0 - Benign prostatic hyperplasia without lower urinary tract symptoms (ICD-10) Hypertension ?I10 - Essential (primary) hypertension (ICD-10) Diabetes ?E11.9 - Type 2 diabetes mellitus without complications (ICD-10) Surgical History H/O rotator cuff surgery ?Z98.890 - Other specified postprocedural states (ICD-10) History of toe surgery ?Z98.890 - Other specified postprocedural states (ICD-10) History of appendectomy ?Z90.49 - Acquired absence of other specified parts of digestive tract (ICD-10) Hx of tonsillectomy ?Z90.89 - Acquired absence of other organs (ICD-10) Family History Mother Family history of cancer Father Family history of stroke Social History Within the past year, how often did you have a drink containing alcohol: never Score interpretation: A score less than 4 is consistent with normal alcohol consumption. 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[employer] Known occupational exposures/hazards: No Highest level of school completed/degree received: Master's degree Are you now , , , , never or living with a partner: Little interest or pleasure in doing things: not at all Feeling down, depressed, or hopeless: not at all Feel stressed/tense/nervous/anxious/difficulty sleeping: not at all Do you think of yourself as: straight/heterosexual Gender Identity: male Meds Home Medications and Allergies Home Medications Medication Instructions Recorded Confirmed Type gabapentin 300 mg capsule 300 mg PO TID 03/08/23 04/17/23 History glipizide 2.5 mg tablet, extended 2.5 mg PO QAM 03/08/23 04/17/23 History release 24 hr lisinopril 20 mg tablet 20 mg PO .qhs 03/08/23 04/17/23 History lovastatin 40 mg tablet 40 mg PO .qhs 03/08/23 04/17/23 History tamsulosin 0.4 mg capsule 0.4 mg PO Q24H 03/08/23 04/17/23 History clindamycin HCl 150 mg capsule 450 mg (3 x 150 mg) PO TID 7 days 04/12/23 04/17/23 Rx #63 caps collagenase clostridium histo. 250 1 applic topical BID 04/12/23 04/17/23 History unit/gram topical ointment (Santyl) doxycycline hyclate 100 mg capsule 100 mg PO BID 7 days #14 caps 04/12/23 04/17/23 Rx Allergies Allergy/AdvReac Type Severity Reaction Status Date / Time ciprofloxacin [From Cipro] Allergy Severe Verified 04/17/23 17:23 Sulfa (Sulfonamide Allergy Severe Verified 04/17/23 17:23 Antibiotics) Exam Narrative Exam Narrative: right foot has ulceration with scab formation and measures 1.1 x 0.9 cm. no fluctuance or drainage noted. Erythema circumferentially around the 5th toe and extends to the level forefoot. 3rd toe wound has nearly healed and is without signs of infection Pedal pulses are faintly palpable. Absent digital hair. Mild to moderate global foot swelling. No Pain on squeeze Absent protective and vibratory sensation No pain on palpation. No pain with active or passive range of motion of the 5th toe. Constitutional Vital Signs, click to edit/add: Last Vital Signs Temp 97.7 F 04/18/23 05:43 Pulse 65 04/18/23 05:43 Resp 20 04/18/23 05:43 BP 145/75 H 04/18/23 05:43 Pulse Ox 96 04/18/23 05:43 O2 Del Method Room Air 04/18/23 05:43 Results Labs Labs: Short CBC 04/17/23 04/18/23 Range/Units 16:50 04:20 WBC 11.8 H 7.5 (4.0-11.0) 10^3/uL Hgb 11.7 L 11.6 L (14.0-18.0) g/dL Hct 34.7 L 34.1 L (42.0-54.0) % Plt Count 248 245 (150-450) 10^3/uL BMP 04/17/23 04/18/23 16:50 04:20 Sodium 133 L 133 L Potassium 4.6 4.3 Chloride 98 100 Carbon Dioxide 25.8 25.8 BUN 29.0 H 22.0 H Creatinine 1.37 H 1.15 Glucose 109 H 91 Calcium 8.5 8.2 L Liver Function 04/18/23 Range/Units 04:20 Total Bilirubin 0.6 (0.2-1.0) mg/dL AST 15 (15-37) U/L ALT 18 (16-63) U/L Alkaline Phosphatase 47 (46-116) U/L Albumin 2.9 L (3.4-5.0) g/dL Assessment and Plan Assessment and Plan (1) Cellulitis of foot, right: Assessment and Plan: patient's cultures from February revealed multiple sensitive organismss. currently on vancomycin and Zosyn (2) Diabetic ulcer of right fifth toe: Assessment and Plan: daily dressing changes with Santyl application to the 5th toe Keep it clean and dry Plan patient seen and evaluated and reviewed plan with Dr. Warren Gupta plans for operative debridement as patient does appear to be improving although given his failure to outpatient care for cellulitis (patient not taking antibiotics as prescribed) I would recommend an additional twenty-four hours of IV antibiotics. I'm concerned that if his cellulitis is not managed he could develop a deeper infection and require toe/foot amputation patient will likely be discharged on oral antibiotics and education was provided regarding taking antibiotics as prescribed patient is to follow-up in the wound center within one week from discharge
[2023-04-18] MEDS: COLLAGENASE CLOSTRIDIUM HIST. 250 UNITS/GM 30 GRAM TUBE 1 APPLIC TOPICAL ×2 (08:39→21:46)
[2023-04-18] MEDS: TAMSULOSIN HCL 0.4 MG CAPSULE 0.400000000000000022 MG PO (08:40)
[2023-04-18] MEDS: GLIPIZIDE 5 MG TAB.ER.24 2.5 MG PO (08:40)
[2023-04-18] MEDS: LIOTHYRONINE SODIUM 5 MCG TABLET 10 MCG PO (08:40)
--- NOTE | 2023-04-18 09:49 | P.HP_ITS ---
H&P: HPI History of Present Illness Chief complaint: DIABETIC FOOT ULCER RE FOOT CELLULITIS Narrative: Patient scented to emergency with increasing drainage from his foot. Increased swelling as well. He is currently being treated with doxycycline and clindamycin. With progression of symptoms at least 2 antibiotics appears to have failed. Patient was admitted with cultures to be obtained. Only other issue in the emergency room was elevated blood pressure but that is improved today. [facility] Medical History (Updated 04/18/23 @ 10:41 by Austyn Kelley MD) HLD (hyperlipidemia) ?E78.5 - Hyperlipidemia, unspecified (ICD-10) Diabetic infection of right foot ?E11.628 - Type 2 diabetes mellitus with other skin complications (ICD-10) ?L08.9 - Local infection of the skin and subcutaneous tissue, unspecified (ICD-10) Neuropathy ?G62.9 - Polyneuropathy, unspecified (ICD-10) Fracture, ankle ?S82.899A - Other fracture of unspecified lower leg, initial encounter for closed fracture (ICD-10) Benign prostate hyperplasia ?N40.0 - Benign prostatic hyperplasia without lower urinary tract symptoms (ICD-10) Hypertension ?I10 - Essential (primary) hypertension (ICD-10) Diabetes ?E11.9 - Type 2 diabetes mellitus without complications (ICD-10) Surgical History H/O rotator cuff surgery ?Z98.890 - Other specified postprocedural states (ICD-10) History of toe surgery ?Z98.890 - Other specified postprocedural states (ICD-10) History of appendectomy ?Z90.49 - Acquired absence of other specified parts of digestive tract (ICD- 10) Hx of tonsillectomy ?Z90.89 - Acquired absence of other organs (ICD-10) Family History Mother Family history of cancer Father Family history of stroke Social History Within the past year, how often did you have a drink containing alcohol: never Score interpretation: A score less than 4 is consistent with normal alcohol consumption. 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[employer] Known occupational exposures/hazards: No Highest level of school completed/degree received: Master's degree Are you now , , , , never or living with a partner: Little interest or pleasure in doing things: not at all Feeling down, depressed, or hopeless: not at all Feel stressed/tense/nervous/anxious/difficulty sleeping: not at all Do you think of yourself as: straight/heterosexual Gender Identity: male Meds Home Medications and Allergies Home Medications Medication Instructions Recorded Confirmed Type gabapentin 300 mg capsule 300 mg PO TID 03/08/23 04/17/23 History glipizide 2.5 mg tablet, extended 2.5 mg PO QAM 03/08/23 04/17/23 History release 24 hr lisinopril 20 mg tablet 20 mg PO .qhs 03/08/23 04/17/23 History lovastatin 40 mg tablet 40 mg PO .qhs 03/08/23 04/17/23 History tamsulosin 0.4 mg capsule 0.4 mg PO Q24H 03/08/23 04/17/23 History clindamycin HCl 150 mg capsule 450 mg (3 x 150 mg) PO TID 7 days 04/12/23 04/17/23 Rx #63 caps collagenase clostridium histo. 250 1 applic topical BID 04/12/23 04/17/23 History unit/gram topical ointment (Santyl) doxycycline hyclate 100 mg capsule 100 mg PO BID 7 days #14 caps 04/12/23 04/17/23 Rx Allergies Allergy/AdvReac Type Severity Reaction Status Date / Time ciprofloxacin [From Cipro] Allergy Severe Verified 04/17/23 17:23 Sulfa (Sulfonamide Allergy Severe Verified 04/17/23 17:23 Antibiotics) Exam Constitutional Vital Signs, click to edit/add: Last Vital Signs Temp 97.7 F 04/18/23 05:43 Pulse 65 04/18/23 05:43 Resp 20 04/18/23 05:43 BP 145/75 H 04/18/23 05:43 Pulse Ox 96 04/18/23 05:43 O2 Del Method Room Air 04/18/23 05:43 Documenting provider has reviewed patient's vital signs: yes Common normals: no apparent distress and oriented x3 General appearance: cooperative HENMT Common normals: normocephalic and head/scalp atraumatic Head and scalp: normocephalic and atraumatic Eye Common normals: conjunctivae normal and no scleral icterus Conjunctiva: conjunctiva(e) normal Respiratory Common normals: normal respiratory effort and clear to auscultation bilaterally Effort & inspection: able to speak in complete sentences Auscultation: clear to auscultation bilaterally Cardio Common normals: regular rate, S1 normal heart sound and S2 normal heart sound Rate: regular rate Heart sounds: S1 normal and S2 normal GI Common normals: Normal to inspection, nondistended, normoactive bowel sounds present, soft to palpation, non-tender and no hepatosplenomegaly Palpation: soft and no hepatosplenomegaly Extremity Common normals: abnormal to inspection (Dressing in place) General: other findings Other: Right foot -appears red/swollen 2-5th toes appears swollen. Ulcer on dorsum of second toe with purulent discharge, macerated and is soft/mushy. Neuro Common normals: oriented x3, moves all extremities and no focal motor deficits Psych Common normals: mental status grossly normal, denies hallucinations, denies homicidal ideation and denies suicidal ideation Results Labs Labs: Short CBC 04/17/23 04/18/23 Range/Units 16:50 04:20 WBC 11.8 H 7.5 (4.0-11.0) 10^3/uL Hgb 11.7 L 11.6 L (14.0-18.0) g/dL Hct 34.7 L 34.1 L (42.0-54.0) % Plt Count 248 245 (150-450) 10^3/uL BMP 04/17/23 04/18/23 16:50 04:20 Sodium 133 L 133 L Potassium 4.6 4.3 Chloride 98 100 Carbon Dioxide 25.8 25.8 BUN 29.0 H 22.0 H Creatinine 1.37 H 1.15 Glucose 109 H 91 Calcium 8.5 8.2 L Liver Function 04/18/23 Range/Units 04:20 Total Bilirubin 0.6 (0.2-1.0) mg/dL AST 15 (15-37) U/L ALT 18 (16-63) U/L Alkaline Phosphatase 47 (46-116) U/L Albumin 2.9 L (3.4-5.0) g/dL Assessment and Plan Assessment and Plan (1) Cellulitis of foot, right: Assessment and Plan: Significant leukocytosis on admission, elevated sedimentation rate and CRP. Failed outpatient treatment with clindamycin and doxycycline for diabetic foot ulcer. Progressed to cellulitis. Attempting to collect culture, likely to not be accurate as patient was treated with Betadine in ER (2) Diabetic ulcer of right fifth toe: Assessment and Plan: See plan from podiatry (3) HLD (hyperlipidemia): Assessment and Plan: Continue with home medications Qualifiers: Hyperlipidemia type: unspecified Qualified Code(s): E78.5 - Hyperlipidemia, unspecified (4) Neuropathy: Assessment and Plan: Currently not on specific treatment main goal is controlling sugars (5) Hypertension: Assessment and Plan: Uncontrolled in ER, improved this morning Qualifiers: Hypertension type: primary hypertension Qualified Code(s): I10 - Essential (primary) hypertension (6) Diabetes: Assessment and Plan: Insulin sliding scale Qualifiers: Diabetes mellitus type: type 2 Diabetes mellitus senior care insulin use: without terminal computer operator use Diabetes mellitus complication status: with neurologic complications Diabetes mellitus complication detail: with polyneuropathy Qualified Code(s): E11.42 - Type 2 diabetes mellitus with diabetic polyneuropathy (7) Iron deficiency anemia: Assessment and Plan: Stable, continue to monitor (8) Acute renal insufficiency: Assessment and Plan: Creatinine 25% above baseline on admission. Improved this morning (9) Hypothyroidism: Assessment and Plan: Low T3-we will supplement Plan With failed outpatient treatment patient will require IV antibiotics until cultures can be returned , this would necessitate a 2 midnights daily. Likely 3. Inpatient status.
[2023-04-18] MEDS: LACTATED RINGER'S SOLUTION 1,000 ML 100 ML IV ×2 (10:43→21:47)
[2023-04-18 11:34] LABS: Glucometer 126 mg/dL (74-106)
[2023-04-18 16:11] LABS: Glucometer 79 mg/dL (74-106)
[2023-04-18] MEDS: VANCOMYCIN HCL 1,500 MG in 0.9 % SODIUM CHLORIDE 500 ML 250 MG IV (17:22)
[2023-04-18] MEDS: LISINOPRIL 20 MG TABLET PO (21:41)
[2023-04-18] MEDS: ATORVASTATIN CALCIUM 10 MG TABLET PO (21:44)
[2023-04-18 22:08] LABS: Glucometer 139 mg/dL (74-106)
[2023-04-19] VITALS (7 sets, daily range): BP systolic 131–153; BP diastolic 70–73; PULSE 60–69; RESP 16–18; TEMP 36.2–36.6; O2SAT 93–98
[2023-04-19] MEDS: GABAPENTIN 300 MG CAPSULE PO ×2 (05:04→13:01)
[2023-04-19] MEDS: LACTATED RINGER'S SOLUTION 1,000 ML 100 ML IV (05:04)
[2023-04-19 05:34] LABS: Basophils Absolute Auto 0.1 10^3/uL (0.0-0.1); Basophils Percent Auto 0.7 % (0.2-2.0); Eosinophils Absolute Auto 0.2 10^3/uL (0.0-0.7); Eosinophils Percent Auto 3.3 % (0.9-7.0); Hematocrit 35.5 % (42.0-54.0); Hemoglobin 11.8 g/dL (14.0-18.0); Immature Granulocytes Abs Auto 0.03 10^3/uL (0.00-0.03); Immature Granulocytes Pct Auto 0.4 % (0.0-0.5); Lymphocytes Absolute Auto 1.8 10^3/uL (1.2-3.8); Lymphocytes Percent Auto 26.9 % (20.5-60.0); Mean Corpuscular HGB Conc 33.2 g/dL (29.9-35.2); Mean Corpuscular Volume 93.2 fL (80.0-94.0); Mean Platelet Volume 8.9 fL (9.5-13.5); Monocytes Absolute Auto 1.1 10^3/uL (0.3-0.8); Monocytes Percent Auto 15.7 % (1.7-12.0); Neutrophils Absolute Auto 3.5 10^3/uL (1.4-6.5); Platelet Count 253 10^3/uL (150-450); Red Blood Count 3.81 10^6/uL (4.70-6.10); Red Cell Distribution Width 11.4 % (11.0-15.0); White Blood Count 6.7 10^3/uL (4.0-11.0)
[2023-04-19 05:53] LABS: Erythrocyte Sedimentation Rate 35 mm/hr (<=20)
[2023-04-19 06:08] LABS: Alanine Aminotransferase 16 U/L (16-63); Albumin Globulin Ratio 0.8; Albumin Level 2.8 g/dL (3.4-5.0); Alkaline Phosphatase 44 U/L (46-116); Anion Gap 11.6; Aspartate Amino Transferase 14 U/L (15-37); BUN Creatinine Ratio 18.8; Bilirubin Total 0.4 mg/dL (0.2-1.0); Calcium 8.5 mg/dL (8.5-10.1); Carbon Dioxide 26.8 mmol/L (21.0-32.0); Chloride 101 mmol/L (98-107); Estimated GFR (African America >60 (>=60); Estimated GFR (Non-African Ame 59 (>=60); Globulin 3.5 g/dL; Glucose 86 mg/dL (74-106); Potassium 4.4 mmol/L (3.5-5.1); Sodium 135 mmol/L (136-145); Total Protein 6.3 g/dL (6.4-8.2)
[2023-04-19 06:55] LABS: C Reactive Protein 1.97 mg/dL (<=0.50)
[2023-04-19 07:33] LABS: Glucometer 96 mg/dL (74-106)
--- NOTE | 2023-04-19 08:18 | PM.DS1 ---
DS: Providers Provider Date of admission: 04/17/23 19:06 Primary care physician: Campbell Naranjo DO Consults: 04/17/23 17:52 Occupational Therapy Eval and Treat Routine Reason for consultation: Only if needed for Rehab Has provider been notified: No Physical Therapy Eval and Treat Routine Reason for consultation: Eval and Treat Has provider been notified: No 04/17/23 17:59 Consult to Podiatry Routine Consulting Provider: Jhon Tejada Reason for consultation: failed out-pt treatment diabetic foot Has provider been notified: No Consult to Wound Care Routine Consulting Provider: Cedric Corrigan Reason for consultation: cellulitis Has provider been notified: No DS: Diagnosis Discharge Diagnosis (1) Cellulitis of foot, right: (2) Diabetic ulcer of right fifth toe: (3) HLD (hyperlipidemia): Qualifiers: Hyperlipidemia type: unspecified Qualified Code(s): E78.5 - Hyperlipidemia, unspecified (4) Neuropathy: (5) Hypertension: Qualifiers: Hypertension type: primary hypertension Qualified Code(s): I10 - Essential (primary) hypertension (6) Diabetes: Qualifiers: Diabetes mellitus complication detail: with polyneuropathy Diabetes mellitus complication status: with neurologic complications Diabetes mellitus mcc insulin use: without health sciences department chair use Diabetes mellitus type: type 2 Qualified Code(s): E11.42 - Type 2 diabetes mellitus with diabetic polyneuropathy (7) Iron deficiency anemia: (8) Acute renal insufficiency: (9) Hypothyroidism: DS: Summary Hospital Course Hospital Course: Patient presented to the emergency room with increasing cellulitis and erythema of his foot. He had been treated as an outpatient with clindamycin and doxycycline. As the redness and swelling was progressing he presented to the emergency room with failed outpatient treatment. He was placed in inpatient status for prolonged course of IV antibiotics. Today his erythema is improved. They were unable to obtain any significant cultures. He is improving with vancomycin and Zosyn. Based on previous sensitivities we will change him to Augmentin to cover the Enterococcus. Continue with the doxycycline. Unfortunately he has a significant Cipro and sulfa allergy. If future cultures warrant he may need to have testing to see if he could tolerate levofloxacin. Patient feels back to his baseline from an overall general standpoint. Will discharge patient to home. This is 1 day earlier than anticipated. He was made inpatient status as it was expected to be a 3 to 4-day course. He did stay to 2 midnights. Will follow-up closely with podiatry at discharge. Medications see list. Time Spent with Patient Time attestation: Total time spent providing and/or coordinating discharge services: Exam Constitutional Vital Signs, click to edit/add: Last Vital Signs Temp 97.7 F 04/19/23 07:24 Pulse 61 04/19/23 07:59 Resp 16 04/19/23 07:24 BP 153/72 H 04/19/23 07:24 Pulse Ox 94 L 04/19/23 07:24 O2 Del Method Room Air 04/19/23 07:24 Documenting provider has reviewed patient's vital signs: yes Common normals: no apparent distress and oriented x3 General appearance: cooperative HENMT Common normals: normocephalic and head/scalp atraumatic Head and scalp: normocephalic and atraumatic Eye Common normals: conjunctivae normal and no scleral icterus Conjunctiva: conjunctiva(e) normal Respiratory Common normals: normal respiratory effort and clear to auscultation bilaterally Effort & inspection: able to speak in complete sentences Auscultation: clear to auscultation bilaterally Cardio Common normals: regular rate, S1 normal heart sound and S2 normal heart sound Rate: regular rate Heart sounds: S1 normal and S2 normal GI Common normals: Normal to inspection, nondistended, normoactive bowel sounds present, soft to palpation, non-tender and no hepatosplenomegaly Palpation: soft and no hepatosplenomegaly Extremity Common normals: abnormal to inspection (Dressing in place) General: other findings Other: Right foot -appears red/swollen 2-5th toes appears swollen. Ulcer on dorsum of second toe with purulent discharge, macerated and is soft/mushy. Neuro Common normals: oriented x3, moves all extremities and no focal motor deficits Psych Common normals: mental status grossly normal, denies hallucinations, denies homicidal ideation and denies suicidal ideation DS: Data Data Completed and Pending Labs on day of discharge: Labs from last 24 hours 04/19/23 04/19/23 04/18/23 07:32 04:21 22:07 WBC 6.7 RBC 3.81 L Hgb 11.8 L Hct 35.5 L MCV 93.2 MCH 31.0 MCHC 33.2 RDW 11.4 Plt Count 253 MPV 8.9 L Neut % (Auto) 53.0 Lymph % (Auto) 26.9 Nye % (Auto) 15.7 H Eos % (Auto) 3.3 Baso % (Auto) 0.7 Neut # (Auto) 3.5 Lymph # (Auto) 1.8 Nye # (Auto) 1.1 H Eos # (Auto) 0.2 Baso # (Auto) 0.1 Abs Immat Gran (auto) 0.03 Imm/Tot Granulo (auto) 0.4 ESR 35 H Sodium 135 L Potassium 4.4 Chloride 101 Carbon Dioxide 26.8 Anion Gap 11.6 BUN 22.0 H Creatinine 1.17 Est GFR ( Amer) >60 Est GFR (Non-Af Amer) 59 L BUN/Creatinine Ratio 18.8 Glucose 86 Calcium 8.5 Total Bilirubin 0.4 AST 14 L ALT 16 Alkaline Phosphatase 44 L C-Reactive Protein 1.97 H Total Protein 6.3 L Albumin 2.8 L Globulin 3.5 Albumin/Globulin Ratio 0.8 POC Glucose 96 139 H 04/18/23 04/18/23 16:10 11:32 WBC RBC Hgb Hct MCV MCH MCHC RDW Plt Count MPV Neut % (Auto) Lymph % (Auto) Nye % (Auto) Eos % (Auto) Baso % (Auto) Neut # (Auto) Lymph # (Auto) Nye # (Auto) Eos # (Auto) Baso # (Auto) Abs Immat Gran (auto) Imm/Tot Granulo (auto) ESR Sodium Potassium Chloride Carbon Dioxide Anion Gap BUN Creatinine Est GFR ( Amer) Est GFR (Non-Af Amer) BUN/Creatinine Ratio Glucose Calcium Total Bilirubin AST ALT Alkaline Phosphatase C-Reactive Protein Total Protein Albumin Globulin Albumin/Globulin Ratio POC Glucose 79 126 H Discharge Plan Discharge Disposition: Home, Self-Care Discharge Medications: New amoxicillin-pot clavulanate 875-125 mg tablet 1 tab PO Q12H Qty: 30 0RF doxycycline monohydrate 100 mg capsule 100 mg PO Q12H Qty: 30 0RF Continued lisinopril 20 mg tablet 20 mg PO .qhs tamsulosin 0.4 mg capsule 0.4 mg PO Q24H glipizide 2.5 mg tablet extended release 24hr 2.5 mg PO QAM gabapentin 300 mg capsule 300 mg PO TID lovastatin 40 mg tablet 40 mg PO .qhs Santyl 250 unit/gram ointment 1 applic TOPICAL BID Discontinued clindamycin HCl 150 mg capsule 450 mg PO TID 7 Days Qty: 63 0RF Rx Instructions: ICD 10 = L03.115 doxycycline hyclate 100 mg capsule 100 mg PO BID 7 Days Qty: 14 0RF Activity: resume usual activities as tolerated Diet: advance to your usual diet Patient Instructions: Cellulitis (ED), Foot Care for People with Diabetes (DC), Chronic Wounds (DC) Justow[employer] Operator/Loss 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 7 @ 2:[address] Naranjo [phone] Apr. 9 @ 11am at [facility] [address] [place] [address] Anderson Adhikari [phone] Discharge Date/Time: 04/19/23 15:38
--- NOTE | 2023-04-19 09:27 | PM.PN ---
Progress Note: Subjective Subjective Interval history: patient feeling well and denies systemic signs of infection. Denies pain and feels as though the redness has sided. He has many questions about wound care and home health. Exam Narrative Exam Narrative: wound on lateral right 5th toe is full-thickness with mild erythema and localized mild to moderate swelling to the 5th toe. Mild dorsal foot swelling. negative probe to bone. No active drainage. No pain to palpation or with manipulation of the 5th toe no calf Pain on squeeze. Constitutional Vital Signs, click to edit/add: Last Vital Signs Temp 97.7 F 04/19/23 07:24 Pulse 61 04/19/23 07:59 Resp 16 04/19/23 07:24 BP 153/72 H 04/19/23 07:24 Pulse Ox 94 L 04/19/23 07:24 O2 Del Method Room Air 04/19/23 07:24 Progress Note: Objective Labs Labs: Short CBC 04/19/23 Range/Units 04:21 WBC 6.7 (4.0-11.0) 10^3/uL Hgb 11.8 L (14.0-18.0) g/dL Hct 35.5 L (42.0-54.0) % Plt Count 253 (150-450) 10^3/uL BMP 04/19/23 04:21 Sodium 135 L Potassium 4.4 Chloride 101 Carbon Dioxide 26.8 BUN 22.0 H Creatinine 1.17 Glucose 86 Calcium 8.5 Liver Function 04/19/23 Range/Units 04:21 Total Bilirubin 0.4 (0.2-1.0) mg/dL AST 14 L (15-37) U/L ALT 16 (16-63) U/L Alkaline Phosphatase 44 L (46-116) U/L Albumin 2.8 L (3.4-5.0) g/dL Progress Note: A&P Assessment and Plan (1) Cellulitis of foot, right: Assessment and Plan: patient currently on vancomycin and is going to receive portals prior to discharge Will continue outpatient antibiotics with Augmentin and doxycycline (2) Diabetic ulcer of right fifth toe: (3) Iron deficiency anemia: (4) Acute renal insufficiency: (5) Hypothyroidism: Plan patient seen and evaluated at bedside Patient is to continue applying the Santyl daily which he has at his home with daily dressing changes after washing the toe with soap and water. He has had difficulty keeping a bandage on the 5th toe so I recommended to cover with a Band-Aid. Home health care will continue to evaluate three days per week for now and will at as needed after his follow-up. He is scheduled to follow-up in the wound center at 11:00am in the wound center Much education was provided regarding how and when to take his antibiotics given his misunderstanding with previous antibiotics. He is to call the office if he has any questions or issues. Dr. Kelley aware of plan and will prescribe Augmentin and doxycycline.
[2023-04-19] MEDS: TAMSULOSIN HCL 0.4 MG CAPSULE 0.400000000000000022 MG PO (09:29)
[2023-04-19] MEDS: LIOTHYRONINE SODIUM 5 MCG TABLET 10 MCG PO (09:29)
[2023-04-19] MEDS: COLLAGENASE CLOSTRIDIUM HIST. 250 UNITS/GM 30 GRAM TUBE 1 APPLIC TOPICAL (09:29)
--- NOTE | 2023-04-19 09:33 | CM.NOTE ---
Rounds made with Dr. Kelley. Potential plan for discharge today depending on Podiatry. Mr. Vogt verbalizes understanding.
--- NOTE | 2023-04-19 09:36 | CM.NOTE ---
Important Message from Medicare reviewed and signed by Mr. Vogt. Verbalizes understanding, no questions offered.
[2023-04-19 11:40] LABS: Glucometer 114 mg/dL (74-106)
[2023-04-19] MEDS: VANCOMYCIN HCL 1,500 MG in 0.9 % SODIUM CHLORIDE 500 ML 250 MG IV (12:50)
--- NOTE | 2023-04-19 15:16 | SWNOTE1 ---
Pt is current with [facility]. SW sent all physician notes and consults, dc med rec, and CRF to [facility].
--- NOTE | 2023-04-19 15:58 | W.PM.WC ---
Wound Consult Note Assessment and Plan (1) Cellulitis of foot, right: (2) Diabetic ulcer of right fifth toe: (3) Iron deficiency anemia: (4) Acute renal insufficiency: (5) Hypothyroidism: Plan Patient has been seen by Dr. Tejada and Dr. Mahoney for his right foot ulcers. Consult for a left thigh wound was called to the office. Patient denies thigh wound and denies need for assessment.
--- NOTE | 2023-04-20 12:04 | CM.DCFOLLOWU ---
Person spoke with: Norberto How are you feeling? Pretty good. How is your pain? No complaints of pain. Did you understand your discharge instructions? Yes Do you have any questions about your discharge instructions? No Were you given any prescriptions at discharge? yes Were you able to get your prescriptions filled? yes Do you understand how to take your medications as ordered? yes. Reviewed script with Mr. Vogt Do you have any questions about your follow up appointment and do you plan to keep your follow up appointment? Yes, Wednesday with Dr. Naranjo and Wednesday with [facility]. Is there anything else that you would like to discuss? No Questions/Comments/Concerns/Other:
== END 2023-04-19 15:38 | disposition home health service (06) | DRG 603 ==
LOC: ER 17:19 → MS 19:29
PROVIDERS: Physician Assistant; Admitting Provider Family Medicine; Emergency Provider Emergency Medicine; PCP Internal Medicine; Visit Provider Family Medicine
DX: L03.115 Cellulitis of right lower limb (principal); E11.621 Type 2 diabetes mellitus with foot ulcer; L97.519 Non-pressure chronic ulcer of other part of right foot with unspecified severity; E11.42 Type 2 diabetes mellitus with diabetic polyneuropathy; I10 Essential (primary) hypertension; E78.5 Hyperlipidemia, unspecified; D50.9 Iron deficiency anemia, unspecified; N28.9 Disorder of kidney and ureter, unspecified; E03.9 Hypothyroidism, unspecified; N40.0 Benign prostatic hyperplasia without lower urinary tract symptoms; Z79.84 Long term (current) use of oral hypoglycemic drugs; Z79.899 Other long term (current) drug therapy; Z90.49 Acquired absence of other specified parts of digestive tract; Z90.89 Acquired absence of other organs; Z98.890 Other specified postprocedural states; Z88.1 Allergy status to other antibiotic agents; Z88.2 Allergy status to sulfonamides; Z82.3 Family history of stroke; Z80.9 Family history of malignant neoplasm, unspecified
CPT/HCPCS: 36415; 80048; 80053; 82948; 83605; 83735; 84436; 84443; 84481; 84484; 85025; 85652; 86140; 87070; 87150; 87186; 94761; 96361; 96365; 96366; 96367; 96368; 97165; 99285; J3370

== ENCOUNTER 2023-04-23 11:48 | Outpatient (OUT) | payer MEDICARE, SELFPAY ==
--- OUTSIDE RECORDS SUMMARY | 2023-04-23 12:03 | XMS_ITS | CCD ---
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 Primary Care Provider Unava ilable RAN LEES JR Primary Care Unavailable KEELY GUTIERREZ Attending Unavailable CAMPBELL NARANJO Primary Care Unavailable Campbell Naranjo DO Primary Care Provider DO Campbell Naranjo Primary Care Provider MD Davis Cervantes Emergency Provider DO Sam Simons Emergency Provider DO Sam Simons Attending Provider [phone] N[address] DR CAMPBELL NARANJO Primary [...] Care Provider DO Low Carter Emergency Provider [phone] Campbell Naranjo Primary Care Unavailable Low Carter [...] source) Ciprofloxacin Drug Allergy [facility] Repository (1 source) Sulfonamides (Antibiotic) Drug allergy (disorder) [facility] Repository (1 source) Allergies Reconciled Propensity to adverse reactions Unknown [employer] Other (1 source) patient allergy list reviewed by nurse or physicia Propensity to adverse reactions 05-20-19 18 Comment:Done [employer] Other (1 source) Ciprofloxacin Drug Allergy 12-12-19 [facility] Repository (1 source) Sulfonamides (Antibiotic) Drug allergy (disorder) 12-12-19 [facility] Repository Medications Current Medications Medication Drug Class(es) [...] Comment on above: Take 1 capsule by [facility] once daily. Take one cap. 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 1. INCOMPLETE EMPTYING [...] Stream (imp (more content not included)... Normal [facility] Bacteria Ur Culton 3 Bacteria identified Cx Nom (U) CULTURE, URINE: No growth (<1,000 CFU/ml) Normal [facility] Comment on above: Performed By: #### 6 30-4 #### [facility] CLIA [id number] [address] [place] [address] STATES OF [facility] CNOVon 07-28-2022 CNOV Office Visit (UROLLN ) NORBERTO WASHINGTON ([id number]) 1940 M Date Time Provider Department 07/28/22 1:30 PM LETICIA MILIAN During your visit today, we recorded the following information about you: Pulse Blood pressure Weight 68/minute 142/55 100.7 kg Leticia Milian APRN.[facility] 07/30/2022 4:34 PM Addendum Norberto Washington [address] [facility] [address] HISTORY OF PRESENT ILLNESS: Seen 01/20/22 for [...] 07/20/22=neg UA 07/20/22=leuk esterase 250, wbc 11-25 [facility] SYMPTOMS SCORE. 1. INCOMPLETE EMPTYING [...] -DM UTI (more content not included)... Normal [facility] Bacteria Ur Culton 3 Bacteria identified Cx Nom (U) CULTURE, URINE: No growth (<1,000 CFU/ml) Normal [facility] Comment on above: Performed By: #### 6 30-4 #### [facility] CLIA [id number] [address] [place] [address] [place] Urinalysis complete panel (U )on 07-20-2022 Bilirubin Ql (U) Negative Normal Negative [facility] Comment on above: Order Comment: Speci men Type: URINE SPECIMEN Ordering Facility: [facility] Address: [address] [address] Performed By: #### 2 4356-8 #### [facility] CLIA [id number] [facility] [place] [address] [place] Clarity (Unsp spec) Clear Normal Clear [facility] Comment on above: Order Comment: Speci men Type: URINE SPECIMEN Ordering Facility: [facility] Address: [address] [address] Performed By: #### 2 4356-8 #### [facility] CLIA [id number] [address] [place] [address] [place] Color (U) Yellow Normal Yellow [facility] Comment on above: Order Comment: Speci men Type: URINE SPECIMEN Ordering Facility: [facility] Address: [address] [address] Performed By: #### 2 4356-8 #### [facility] CLIA [id number] [address] [place] [address] [place] Epithelial cells LM.HPF (Urine sed) [#/Area] Few Normal [facility] Comment on above: Order Comment: Speci men Type: URINE SPECIMEN Ordering Facility: [facility] Address: [address] [place] [address] Performed By: #### 2 4356-8 #### [facility] CLIA [id number] [address] [place] [address] [place] Glucose Test strip (U) [Mass/Vol] Negative Normal Trace, Negative [facility] Comment on above: Order Comment: Speci men Type: URINE SPECIMEN Ordering Facility: [facility] Address: [address] [place] [address] Performed By: #### 2 4356-8 #### [facility] CLIA [id number] [address] [place] [address] [place] Hemoglobin Ql (U) Negative Normal Negative, Trace [facility] Comment on above: Order Comment: Speci men Type: URINE SPECIMEN Ordering Facility: [facility] Address: [address] Performed By: #### 2 4356-8 #### [facility] CLIA [id number] [address] [place] [address] [place] Ketones Ql (U) Negative Normal Trace, Negative [facility] Comment on above: Order Comment: Speci men Type: URINE SPECIMEN Ordering Facility: [facility] Address: [address] Performed By: #### 2 4356-8 #### [facility] CLIA [id number] [address] [place] Leukocyte esterase Test strip Ql (U) 250 Ayaz/uL Abnormal Negative, 25 Ayaz/uL [facility] Comment on above: Order Comment: Speci men Type: URINE SPECIMEN Ordering Facility: [facility] Address: [address] [address] Performed By: #### 2 4356-8 #### [facility] CLIA [id number] [address] [place] [address] [place] Nitrite Ql (U) Negative Normal Negative [facility] Comment on above: Order Comment: Speci men Type: URINE SPECIMEN Ordering Facility: [facility] Address: [address] [place] [address] Performed By: #### 2 4356-8 #### [facility] CLIA [id number] [address] [place] [address] [place] pH (U) 5.5 [pH] Normal 5.0-8.0 [facility] Comment on above: Order Comment: Speci men Type: URINE SPECIMEN Ordering Facility: [facility] Address: [address] [place] [address] Performed By: #### 2 4356-8 #### [facility] CLIA [id number] [address] [place] [address] [place] Protein (U) [Mass/Vol] Negative Normal Trace , Negative [facility] Comment on above: Order Comment: Speci men Type: URINE SPECIMEN Ordering Facility: [facility] Address: [address] [place], [place] [address] Performed By: #### 2 4356-8 #### [facility] CLIA [id number] [address] [place] [address] [place] RBC LM.HPF (Urine sed) [#/Area] 0-3 /HPF Normal 0-3 /HPF [facility] Comment on above: Order Comment: Speci men Type: URINE SPECIMEN Ordering Facility: [facility] Address: [address] [place] [address] Performed By: #### 2 4356-8 #### [facility] CLIA [id number] [address] [place] [address] [place] Specific gravity (U) [Rel density] 1.016 Normal 1.005-1.030 [facility] Comment on above: Order Comment: Speci men Type: URINE SPECIMEN Ordering Facility: [facility] Address: [address] [place] [address] Performed By: #### 2 4356-8 #### [facility] CLIA [id number] [address] [place] [address] [place] Urobilinogen Ql (U) Negative Normal Negative [facility] Comment on above: Order Comment: Speci men Type: URINE SPECIMEN Ordering Facility: [facility] Address: [address] [place] [address] Performed By: #### 2 4356-8 #### [facility] CLIA [id number] [address] [place] [address] [place] WBC LM.HPF (Urine sed) [#/Area] 11-25 /HPF Abnormal 0-5 /HPF [facility] Comment on above: Order Comment: Speci men Type: URINE SPECIMEN Ordering Facility: [facility] Address: [address] [place] [address] Performed By: #### 2 4356-8 #### [facility] CLIA [id number] [address] [place] [address] [place] GLYCOHEMOGLOBIN A1Con 2022 ADA RECOMMENDATION SEE BELOW Normal [facility] Comment on above: Result Comment: ADA RECOMMENDED LIMIT 4.0 - 6.0 ADA THERAPEUTIC TARGET < 7.0 ACTION SUGGESTED > 7.0 Performed By: #### A 1C #### [facility] [address] [address] [address] Juan Pablo Kaminski Glucose [Mass/Vol] 128 mg/dL Normal [facility] Comment on above: Performed By: #### A 1C #### [facility] [address] [address] [address] Juan Pablo Kaminski HbA1c (Bld) [Mass fraction] 6.1 % Normal 4.5-6.2 [facility] Comment on above: Performed By: #### A 1C #### [facility] [address] [place] [address] Dr. Juan Pablo Kaminski A1C with Estimated Average G luon 03-20-2022 A1C with Estimated Average Glu 128 [facility] [employer] Other A1C with Estimated Average Glu [facility] [employer] Other HbA1c (Bld) [Mass fraction] 6.1 % Normal 4.5-6.2 [facility] [employer] Other Comment on above: Performed By: #### A 1C #### [facility] [address] [place] [address] Dr. Juan Pablo Kaminski GLYCOHEMOGLOBIN A1Con 2022 ADA RECOMMENDATION SEE BELOW Normal [facility] Comment on above: Result Comment: ADA RECOMMENDED LIMIT 4.0 - 6.0 ADA THERAPEUTIC TARGET < 7.0 ACTION SUGGESTED > 7.0 Performed By: #### A 1C #### [facility] [address] [place] [address] Dr. Juan Pablo Kaminski Glucose [Mass/Vol] 128 mg/dL Normal [facility] Comment on above: Performed By: #### A 1C #### [facility] [address] [place] [address] Dr. Juan Pablo Kaminski US SCROTUM W [...] by: LEIDY PEREIRA Date: 2021-12-25 18:32 Normal [facility] Urine culture routineOrdered By: Sam Simons on 12-19-2021 Bacteria identified Cx Nom (U) Pseudomonas aeruginosa [facility] Automated erythrocytes count in urine sediment (number/area)Ordered By: Sam Simons on 12-17-2021 RBC Auto (Urine sed) [#/Area] 1-2 [HPF] 0-4 [facility] Automated leukocytes count i n urine sediment (number/area)Ordered By: Sam Simons on 12-17-2021 WBC Auto (Urine sed) [#/Area] 20-49 [HPF] 0-4 [facility] Bilirubin Test strip Ql (U)O rdered By: Sam Simons on 12-17-2021 Bilirubin Ql (U) Negative Negative [facility] Color Auto (U)Ordered By: Micheal Simons on 12-17-2021 Color (U) Yellow Yellow [facility] Ketones Auto test strip (U) [Mass/Vol]Ordered By: Sam Simons on 12-17-2021 Ketones (U) [Mass/Vol] Negative Negative [facility] - UrinalysisOrder ed By: Sam Simons on 12-17-2021 Hyaline casts LM Ql (Urine sed) 0-8 [LPF] 0-8 [facility] Nitrite Test strip Ql (U)Ord ered By: Sam Simons on 12-17-2021 Nitrite Ql (U) Negative Negative [facility] Protein Auto test strip (U) [Mass/Vol]Ordered By: Sam Simons on 12-17-2021 Protein (U) [Mass/Vol] Negative Negative [facility] Specific gravity Auto test s trip (U) [Rel density]Ordered By: Sam Simons on 12-17-2021 Specific gravity (U) [Rel density] 1.016 1.001-1.030 [facility] Squamous epithelial cells de tection in urine sediment by light microscopyOrdered By: Sam Simons on 12-17-2021 Epithelial cells.squamous LM Ql (Urine sed) 0-1 [HPF] 0-2 [facility] Urine bacteria detection by automated methodOrdered By: Sam Simons on 12-17-2021 Bacteria Auto Ql (U) None seen None Seen [facility] Urine clarity by refractomet ry automatedOrdered By: Sam Simons on 12-17-2021 Clarity Refractometry automated (U) Clear Clear [facility] Urine glucose measurement by automated test strip (mass/volume)Ordered By: Sam Simons on 12-17-2021 Glucose Auto test strip (U) [Mass/Vol] Normal mg/dL Normal [facility] Urine hemoglobin detection b y automated test stripOrdered By: Sam Simons on 12-17-2021 Hemoglobin Auto test strip Ql (U) Negative Negative [facility] Urine leukocyte esterase det ection by automated test stripOrdered By: Sam Simons on 12-17-2021 Leukocyte esterase Auto test strip Ql (U) 4+ Negative [facility] Urobilinogen Auto test strip (U) [Mass/Vol]Ordered By: Sam Simons on 12-17-2021 Urobilinogen (U) [Mass/Vol] Normal mg/dL Normal [facility] pH Auto test strip (U)Ordere d By: Sam Simons on 12-17-2021 pH (U) 6.0 [pH] 5.0-9.0 [facility] Urine culture routineOrdered By: Davis Cervantes on 12-13-2021 Bacteria identified Cx Nom (U) No Growth 2 Days [facility] Automated erythrocytes count in urine sediment (number/area)Ordered By: Davis Cervantes on 12-11-2021 RBC Auto (Urine sed) [#/Area] 20-49 [HPF] 0-4 [facility] Automated leukocytes count i n urine sediment (number/area)Ordered By: Davis Cervantes on 12-11-2021 WBC Auto (Urine sed) [#/Area] 10-19 [HPF] 0-4 [facility] Basophils Auto (Bld) [#/Vol] Ordered By: Davis Cervantes on 12-11-2021 Basophils (Bld) [#/Vol] 0.1 10*3/uL 0.0-0.2 [facility] Basophils/100 WBC Auto (Bld) Ordered By: Davis Cervantes on 12-11-2021 Basophils/100 WBC (Bld) 1.2 % . [facility] Bilirubin Test strip Ql (U)O rdered By: Davis Cervantes on 12-11-2021 Bilirubin Ql (U) Negative Negative [facility] Blood hemoglobin measurement (mass/volume)Ordered By: Davis Cervantes on 12-11-2021 Hemoglobin (Bld) [Mass/Vol] 13.3 g/dL 13.0-17.0 [facility] Blood leukocytes automated c ount (number/volume)Ordered By: Davis Cervantes on 12-11-2021 WBC (Bld) [#/Vol] 8.2 10*3/uL 4.5-11.0 [facility] Color Auto (U)Ordered By: Mary Cervantes on 12-11-2021 Color (U) Yellow Yellow [facility] Creatinine and Glomerular fi ltration rate.predicted panel (S/P/Bld)Ordered By: Davis Cervantes on 12-11-2021 Creatinine [Mass/Vol] 1.16 mg/dL 0.64-1.27 [facility] Eosinophils Auto (Bld) [#/Vo l]Ordered By: Davis Cervantes on 12-11-2021 Eosinophils (Bld) [#/Vol] 0.2 10*3/uL 0.0-0.45 [facility] Eosinophils/100 WBC Auto (Bl d)Ordered By: Davis Cervantes on 12-11-2021 Eosinophils/100 WBC (Bld) 2.9 % . [facility] Erythrocyte distribution wid th Auto (RBC) [Ratio]Ordered By: Davis Cervantes on 12-11-2021 Erythrocyte distribution width (RBC) [Ratio] 11.8 % 12.0-14.8 [facility] Estimated glomerular filtrat ion rate (GFR) non- AmericanOrdered By: Davis Cervantes on 12-11-2021 GFR/1.73 sq M.predicted among non-blacks MDRD (S/P/Bld) [Vol rate/Area] 60 mL/Min [facility] Hematocrit Auto (Bld) [Volum e fraction]Ordered By: Davis Cervantes on 12-11-2021 Hematocrit (Bld) [Volume fraction] 39.6 % 38.8-50.0 [facility] Ketones Auto test strip (U) [Mass/Vol]Ordered By: Davis Cervantes on 12-11-2021 Ketones (U) [Mass/Vol] Negative Negative [facility] - Hematology and Cell countsOrdered By: Davis Cervantes on 12-11-2021 Nucleated RBC/100 WBC (Bld) [Ratio] 0.0 % 0-0.5 [facility] - UrinalysisOrder ed By: Davis Cervantes on 12-11-2021 Hyaline casts LM Ql (Urine sed) 0-8 [LPF] 0-8 [facility] Lymphocytes Auto (Bld) [#/Vo l]Ordered By: Davis Cervantes on 12-11-2021 Lymphocytes (Bld) [#/Vol] 1.9 10*3/uL 1.00-4.8 [facility] Lymphocytes/100 WBC Auto (Bl d)Ordered By: Davis Cervantes on 12-11-2021 Lymphocytes/100 WBC (Bld) 23.3 % . [facility] MCH Auto (RBC) [Entitic mass ]Ordered By: Davis Cervantes on 12-11-2021 MCH (RBC) [Entitic mass] 32.0 pg 27.5-35.2 [facility] MCHC Auto (RBC) [Mass/Vol]Or dered By: Davis Cervantes on 12-11-2021 MCHC (RBC) [Mass/Vol] 33.6 g/dL 32.5-35.6 [facility] MCV Auto (RBC) [Entitic vol] Ordered By: Davis Cervantes on 12-11-2021 MCV (RBC) [Entitic vol] 95.1 fL 83.5-101 [facility] Monocytes Auto (Bld) [#/Vol] Ordered By: Davis Cervantes on 12-11-2021 Monocytes (Bld) [#/Vol] 1.1 10*3/uL 0.0-0.8 [facility] Monocytes/100 WBC Auto (Bld) Ordered By: Davis Cervantes on 12-11-2021 Monocytes/100 WBC (Bld) 13.6 % . [facility] Neutrophils Auto (Bld) [#/Vo l]Ordered By: Davis Cervantes on 12-11-2021 Neutrophils (Bld) [#/Vol] 4.8 10*3/uL 1.8-7.7 [facility] Neutrophils/100 WBC Auto (Bl d)Ordered By: Davis Cervantes on 12-11-2021 Neutrophils/100 WBC (Bld) 59.0 % . [facility] Nitrite Test strip Ql (U)Ord ered By: Davis Cervantes on 12-11-2021 Nitrite Ql (U) Negative Negative [facility] No Panel InformationOrdered By: Davis Cervantes on 12-11-2021 Estimated GFR () > 60 mL/Min [facility] Comment on above: GFR estimated refere nce range: According to KDOQI guidelines, <60 ml/min/1.73m2 is sufficient to diagnose a patient with chronic kidney disease. Pharmacy Creatinine Clearance (Chem 57.67 [facility] Platelet mean volume Auto (B ld) [Entitic vol]Ordered By: Davis Cervantes on 12-11-2021 Platelet mean volume (Bld) [Entitic vol] 7.0 fL 6.6-10.1 [facility] Platelets Auto (Bld) [#/Vol] Ordered By: Davis Cervantes on 12-11-2021 Platelets (Bld) [#/Vol] 266 10*3/uL 150-450 [facility] Protein Auto test strip (U) [Mass/Vol]Ordered By: Davis Cervantes on 12-11-2021 Protein (U) [Mass/Vol] Negative Negative [facility] RBC Auto (Bld) [#/Vol]Ordere d By: Davis Cervantes on 12-11-2021 RBC (Bld) [#/Vol] 4.17 10*6/uL 3.90-5.60 [facility] Serum or plasma anion gap de terminationOrdered By: Davis Cervantes on 12-11-2021 Anion gap [Moles/Vol] 12.2 mmol/L 6.0-15.0 [facility] Serum or plasma calcium maggy urement (mass/volume)Ordered By: Davis Cervantes on 12-11-2021 Calcium [Mass/Vol] 9.0 mg/dL 8.2-10.2 [facility] Serum or plasma chloride duran surement (moles/volume)Ordered By: Davis Cervantes on 12-11-2021 Chloride [Moles/Vol] 96 mmol/L 95-114 [facility] Serum or plasma glucose maggy urement (mass/volume)Ordered By: Davis Cervantes on 12-11-2021 Glucose [Mass/Vol] 131 mg/dL 70-100 [facility] Comment on above: ADA recommended refe rence rangeRandom Glucose Reference Range is dependent on time and content of last meal. Glucose of more than 200 mg/dL in a nonstressed, ambulatory subject supports the diagnosis of Diabetes Mellitus. Serum or plasma potassium me asurement (moles/volume)Ordered By: Davis Cervantes on 12-11-2021 Potassium [Moles/Vol] 4.5 mmol/L 3.5-5.1 [facility] Serum or plasma sodium measu rement (moles/volume)Ordered By: Davis Cervantes on 12-11-2021 Sodium [Moles/Vol] 131 mmol/L 136-146 [facility] Serum or plasma total carbon dioxide measurement (moles/volume)Ordered By: Davis Cervantes on 12-11-2021 CO2 [Moles/Vol] 27.3 mmol/L 22.0-30.0 [facility] Serum or plasma urea nitroge n measurement (mass/volume)Ordered By: Davis Cervantes on 12-11-2021 Urea nitrogen [Mass/Vol] 20 mg/dL 9-23 [facility] Specific gravity Auto test s trip (U) [Rel density]Ordered By: Davis Cervantes on 12-11-2021 Specific gravity (U) [Rel density] 1.014 1.001-1.030 [facility] Squamous epithelial cells de tection in urine sediment by light microscopyOrdered By: Davis Cervantes on 12-11-2021 Epithelial cells.squamous LM Ql (Urine sed) 0-1 [HPF] 0-2 [facility] Urine bacteria detection by automated methodOrdered By: Davis Cervantes on 12-11-2021 Bacteria Auto Ql (U) None seen None Seen [facility] Urine clarity by refractomet ry automatedOrdered By: Davis Cervantes on 12-11-2021 Clarity Refractometry automated (U) Clear Clear [facility] Urine glucose measurement by automated test strip (mass/volume)Ordered By: Davis Cervantes on 12-11-2021 Glucose Auto test strip (U) [Mass/Vol] Normal mg/dL Normal [facility] Urine hemoglobin detection b y automated test stripOrdered By: Davis Cervantes on 12-11-2021 Hemoglobin Auto test strip Ql (U) 2+ Negative [facility] Urine leukocyte esterase det ection by automated test stripOrdered By: Davis Cervantes on 12-11-2021 Leukocyte esterase Auto test strip Ql (U) 2+ Negative [facility] Urobilinogen Auto test strip (U) [Mass/Vol]Ordered By: Davis Cervantes on 12-11-2021 Urobilinogen (U) [Mass/Vol] Normal mg/dL Normal [facility] pH Auto test strip (U)Ordere d By: Davis Cervantes on 12-11-2021 pH (U) 5.5 [pH] 5.0-9.0 [facility] ED NOTEon 11-27-2021 ED NOTE HNO ID: [id number] Author: Alyx Vergara, RN Service: Nursing Author Type: Registered Nurse Type: ED Notes Filed: 11/26/2021 10:21 PM Note Text: Discharge instructions and follow up appointments reviewed. Pt verbalized understanding and states no concerns or questions at this time. VSS. Spoke with Asha about elevated BP. Stated that it's okay for pt to go and have him f/u with his PCP. Normal [facility] ED NOTE HNO ID: [id number] Author: Alyx Vergara RN Service: Nursing Author Type: Registered Nurse Type: ED Notes Filed: 11/26/2021 10:10 PM Note Text: Replaced hamilton bag with leg bag. Normal [facility] Bacteria Ur Culton 2 Bacteria identified Cx Nom (U) [id number] Abnormal [facility] Comment on above: Order Comment: Speci men Type: URINE SPECIMEN [facility] [facility] Address: [address] [place] [address] Result Comment: >=10 0,000 CFU/ml Klebsiella oxytoca Performed By: #### 6 30-4, 61384-0 #### [facility] CLIA [id number] [address] [place] [address] [place] Bacterial susceptibility maldonado el (Isol)on 11-26-2021 Ampicillin [Susc] Resistant [facility] Comment on above: Order Comment: Order ing Facility: [facility] Address: [address] [place] [address] Performed By: #### 6 30-4, 66995-2 #### [facility] CLIA [id number] [address] [place] [address] [place] Ampicillin+Sulbactam [Susc] 4 Susceptible Susceptible <=8 , Intermediate >8 , Resistant >16 [facility] Comment on above: Order Comment: Order ing Facility: [facility] Address: [address] [place] [address] Performed By: #### 6 30-4, 81439-0 #### [facility] CLIA [id number] [address] [place] [address] [place] ceFAZolin [Susc] <=4 Susceptible Susceptible 0-16 , Intermediate <0 or >16 , Resistant >16 [facility] Comment on above: Order Comment: Order ing Facility: [facility] Address: [address] [place], [place] [address] Performed By: #### 6 30-4, 92798-9 #### [facility] CLIA [id number] [address] [place] [address] Cefepime [Susc] <=1 Susceptible Susceptible <=2 , Intermediate >2 , Resistant >=16 [facility] Comment on above: Order Comment: Order ing Facility: [facility] Address: [address] [place] [address] Performed By: #### 6 30-4, 94724-0 #### [facility] CLIA [id number] [address] [place] [address] cefTRIAXone [Susc] <=1 Susceptible Susceptib le <=1 , Intermediate >1 , Resistant >=4 [facility] Comment on above: Order Comment: Order ing Facility: [facility] Address: [address] [place], [place] [address] Performed By: #### 6 30-4, 31986-7 #### [facility] CLIA [id number] [address] [place] [address] Ciprofloxacin [Susc] <=0.25 Susceptible Suscept ible <0.5 , Intermediate >=.5 , Resistant >=1 [facility] Comment on above: Order Comment: Order ing Facility: [facility] Address: [address] [place], [place] [address] Performed By: #### 6 30-4, 09595-6 #### [facility] CLIA [id number] [address] [place] [address] [place] Ertapenem ROCIO [Susc] <=0.5 Susceptible Suscept ible <=0.5 , Intermediate >.5 , Resistant >1 [facility] Comment on above: Order Comment: Order ing Facility: [facility] Address: [address] Performed By: #### 6 30-4, 14343-5 #### [facility] CLIA [id number] [address] [place] [address] [place] Gentamicin [Susc] <=1 Susceptible Susceptibl e <=4 , Intermediate >4 , Resistant >8 [facility] Comment on above: Order Comment: Order ing Facility: [facility] Address: [address] [place], [place] [address] Performed By: #### 6 30-4, 24247-8 #### [facility] CLIA [id number] [address] [place] [address] Meropenem [Susc] <=0.25 Susceptible Susceptible <=1 , Intermediate >1 , Resistant >2 [facility] Comment on above: Order Comment: Order ing Facility: [facility] Address: [address] [place], [place] [address] Performed By: #### 6 30-4, 66093-1 #### [facility] CLIA [id number] [address] [place] [address] [place] Nitrofurantoin [Susc] 32 Susceptible Suscep tible <=32 , Intermediate >32 , Resistant >64 [facility] Comment on above: Order Comment: Order ing Facility: [facility] Address: [address] Performed By: #### 6 30-4, 77606-3 #### [facility] CLIA [id number] [address] [place] [address] [place] Piperacillin+Sulbactam ROCIO [Susc] <=4 Susceptible Susceptible <=16 , Intermediate >16 , Resistant >64 [facility] Comment on above: Order Comment: Order ing Facility: [facility] Address: [address] Performed By: #### 6 30-4, 54372-9 #### [facility] CLIA [id number] [address] [place] [address] Tobramycin [Susc] <=1 Susceptible Susceptibl e <=4 , Intermediate >4 , Resistant >8 [facility] Comment on above: Order Comment: Order ing Facility: [facility] Address: [address] [place] [address] Performed By: #### 6 30-4, 86531-3 #### [facility] CLIA [id number] [address] [place] [address] Trimethoprim+Sulfameth oxazole [Susc] <=20 Susceptible Susceptible <=40 , Resistant >40 [facility] Comment on above: Order Comment: Order ing Facility: [facility] Address: [address] [place] [address] Performed By: #### 6 30-4, 36130-1 #### [facility] CLIA [id number] [address] [place] [address] ED NOTEon 11-26-2021 ED NOTE HNO ID: [id number] Author: Alyx Vergara RN Service: Nursing Author Type: Registered Nurse Type: ED Notes Filed: 11/26/2021 9:20 PM Note Text: Replaced hamilton per Asha BARR. [facility] ED NOTE HNO ID: [id number] Author: Alyx Vergara RN Service: Nursing Author Type: Registered Nurse Type: ED Notes Filed: 11/26/2021 9:01 PM Note Text: Was instructed to bladder scan pt due to pt having no urine in replaced bag. Bladder scanned 261 mL's the first time. Then 214 mL's the second time. Made Asha ESQUIVEL) aware. [facility] ED NOTE HNO ID: [id number] Author: Alyx Vergara RN Service: Nursing Author Type: Registered Nurse Type: ED Notes Filed: 11/26/2021 9:49 PM Note Text: Flushed 20 mL Hamilton. No leaking noted around tube. [facility] ED PROV NOTEon 11-26-2021 ED PROV NOTE HNO ID: [id number] Author: Asha Clinton PA-C Service: ? Author Type: Physician Ct Scan Technologist Type: ED Provider Notes Filed: 11/26/2021 10:26 [...] culture. Previous and only urine culture in [facility] on 11/07 had no growth. Given dose of Keflex. Prescription for this E scripted to pharmacy. Patient discharged with Hamilton in place, leg bag instructions. Elevated blood pressure noted and improved during stay. No CP, sob, dizziness or any other complaints. Recommend f/u with pcp for recheck. All questions and concerns addre (more content not included)... Normal [facility] Urinalysis complete panel (U )on 11-26-2021 Bacteria LM.HPF (Urine sed) [#/Area] Many Abnormal None Seen [facility] Comment on above: Order Comment: Speci men Type: URINE SPECIMEN Ordering Facility: [facility] Address: [address] [place] [address] Performed By: #### 6 30-4, 30101-9 #### [facility] CLIA [id number] [address] [place] [address] [place] Bilirubin Ql (U) Negative Normal Negative [facility] Comment on above: Order Comment: Speci men Type: URINE SPECIMEN Ordering Facility: [facility] Address: [address] [place] [address] Performed By: #### 6 30-4, 88157-0 #### [facility] CLIA [id number] [address] [place] [address] [place] Clarity (Unsp spec) Cloudy Abnormal Clear [facility] Comment on above: Order Comment: Speci men Type: URINE SPECIMEN Ordering Facility: [facility] Address: [address] [place] [address] Performed By: #### 6 30-4, 81959-0 #### [facility] CLIA [id number] [address] [place] [address] [place] Color (U) Yellow Normal Yellow [facility] Comment on above: Order Comment: Speci men Type: URINE SPECIMEN Ordering Facility: [facility] Address: [address] [place] [address] Performed By: #### 6 30-4, 41032-4 #### [facility] CLIA [id number] [address] [place] [address] [place] Epithelial cells LM.HPF (Urine sed) [#/Area] Few Normal [facility] Comment on above: Order Comment: Speci men Type: URINE SPECIMEN Ordering Facility: [facility] Address: [address] [place], [place] [address] Performed By: #### 6 30-4, 25301-3 #### [facility] CLIA [id number] [address] [place] [address] [place] Glucose Test strip (U) [Mass/Vol] Negative Normal Negative [facility] Comment on above: Order Comment: Speci men Type: URINE SPECIMEN Ordering Facility: [facility] Address: [address] [place], [place] [address] Performed By: #### 6 30-4, 49683-8 #### [facility] CLIA [id number] [address] [place] [address] [place] Hemoglobin Ql (U) 2+ Abnormal Negative [facility]ital Comment on above: Order Comment: Speci men Type: URINE SPECIMEN Ordering Facility: [facility] Address: [address] [place], [place] [address] Performed By: #### 6 30-4, 63371-3 #### [facility] CLIA [id number] [address] [place] [address] [place] Ketones Ql (U) Negative Normal Negative [facility] Comment on above: Order Comment: Speci men Type: URINE SPECIMEN Ordering Facility: [facility] Address: [address] [place], [place] [address] Performed By: #### 6 30-4, 96776-7 #### [facility] CLIA [id number] [address] [place] [address] [place] Leukocyte esterase Test strip Ql (U) 3+ Abnormal Negative [facility] Comment on above: Order Comment: Speci men Type: URINE SPECIMEN Ordering Facility: [facility] Address: [address] [place] [address] Performed By: #### 6 30-4, 95982-9 #### [facility] CLIA [id number] [address] [place] [address] [place] Nitrite Ql (U) Positive Abnormal Negative [facility] Comment on above: Order Comment: Speci men Type: URINE SPECIMEN Ordering Facility: [facility] Address: [address] [place] [address] Performed By: #### 6 30-4, 10916-8 #### [facility] CLIA [id number] [address] [place] [address] [place] pH (U) 5.5 [pH] Normal 5.0-8.0 [facility] Comment on above: Order Comment: Speci men Type: URINE SPECIMEN Ordering Facility: [facility] Address: [address] [place] [address] Performed By: #### 6 30-4, 88307-8 #### [facility] CLIA [id number] [address] [place] [address] [place] Protein (U) [Mass/Vol] Normal [facility] Comment on above: Order Comment: Speci men Type: URINE SPECIMEN Ordering Facility: [facility] Address: [address] [place] [address] Result Comment: Visi ble blood causes falsely elevated results for analyte Protein. Due to this limitation, Protein will not be reported for patients whose urine contains visible blood. Performed By: #### 6 30-4, 21309-2 #### [facility] CLIA [id number] [address] [place] [address] [place] RBC LM.HPF (Urine sed) [#/Area] 6-10 /HPF Abnormal 0-3 /HPF [facility] Comment on above: Order Comment: Speci men Type: URINE SPECIMEN Ordering Facility: [facility] Address: [address] [place] [address] Performed By: #### 6 30-4, 52995-6 #### [facility] CLIA [id number] [address] [place] [address] [place] Specific gravity (U) [Rel density] 1.009 Normal 1.005-1.030 [facility] Comment on above: Order Comment: Speci men Type: URINE SPECIMEN Ordering Facility: [facility] Address: [address] [place] [address] Performed By: #### 6 30-4, 59043-3 #### [facility] CLIA [id number] [address] [place] [address] [place] Urobilinogen Ql (U) 0.2 EU/dL Normal 0.2-1.0 EU/dL [facility] Comment on above: Order Comment: Speci men Type: URINE SPECIMEN Ordering Facility: [facility] Address: [address] [place] [address] Performed By: #### 6 30-4, 16853-8 #### [facility] CLIA [id number] [address] [place] [address] [place] WBC LM.HPF (Urine sed) [#/Area] 11-25 /HPF Abnormal 0-5 /HPF [facility] Comment on above: Order Comment: Speci men Type: URINE SPECIMEN Ordering Facility: [facility] Address: [address] [place] [address] Performed By: #### 6 30-4, 85364-7 #### [facility] CLIA [id number] [address] [place] [address] [place] Covid-19 PCR (CVDTB)on SARS-CoV-2 (COVID-19) RNA LUANNE+probe Ql (Unsp spec) Not detected Normal NOT DETECTED [facility] Comment on above: Result Comment: This test is not yet approved or cleared by the [place] FDA. When there are no FDA-approved or cleared tests available, and other criteria are met, FDA can make tests available under an emergency access mechanism called an Emergency Use Authorization (EUA). The EUA for this test is supported by the Faith of Health and Human Service's (HHS's) declaration [...] By: #### C VDTB #### [facility] [address] [place] [address] Dr. Juan Pablo Kaminski Bacteria Ur Culton 2 Bacteria identified Cx Nom (U) No growth (<1,000 CFU/ml) Normal [facility] Comment on above: Order Comment: Speci men Type: URINE SPECIMEN Ordering Facility: [facility] Address: [address] [place] [address] Performed By: #### 6 30-4 #### [facility] CLIA [id number] [address] [place] [address] [place] Basic metabolic 2000 panelon 11-07-2021 Anion gap [Moles/Vol] 10 mmol/L Normal 9-18 [facility] Comment on above: Order Comment: Speci men Type: URINE SPECIMEN Ordering Facility: [facility] Address: [address] [place] [address] Performed By: #### 6 30-4, 64829-8 #### [facility] CLIA [id number] [address] [place] [address] [place] Calcium [Mass/Vol] 9.1 mg/dL Normal 8.5-10.2 [facility] Comment on above: Order Comment: Speci men Type: URINE SPECIMEN Ordering Facility: [facility] Address: [address] [place], [place] [address] Performed By: #### 6 30-4, 14466-4 #### [facility] CLIA [id number] [address] [place] [address] [place] Chloride [Moles/Vol] 95 mmol/L Low 97-105 [facility] Comment on above: Order Comment: Speci men Type: URINE SPECIMEN Ordering Facility: [facility] Address: [address] [place], [place] [address] Performed By: #### 6 30-4, 87973-9 #### [facility] CLIA [id number] [address] [place] [address] [place] CO2 [Moles/Vol] 25 mmol/L Normal 22-30 [facility] ital Comment on above: Order Comment: Speci men Type: URINE SPECIMEN Ordering Facility: [facility] Address: [address] [place], [place] [address] Performed By: #### 6 30-4, 89475-7 #### [facility] CLIA [id number] [address] [place] [address] [place] Creatinine [Mass/Vol] 1.25 mg/dL High 0.73-1.22 [facility] Comment on above: Order Comment: Speci men Type: URINE SPECIMEN Ordering Facility: [facility] Address: [address] [place], [place] [address] Performed By: #### 6 30-4, 88099-8 #### [facility] CLIA [id number] [address] [place] [address] [place] ESTIMATED GLOMERULAR FILTRATION RATE 57 mL/min/1.73m??? Low >=60 [facility] Comment on above: Order Comment: Speci men Type: URINE SPECIMEN Ordering Facility: [facility] Address: [address] [place] [address] Result Comment: Annalise mated Glomerular Filtration Rate [...] actual GFR. Performed By: #### 6 30-4, 47629-9 #### [facility] CLIA [id number] [address] [place] [address] [place] Glucose [Mass/Vol] 129 mg/dL High 74-99 [facility] Comment on above: Order Comment: Specfabiana men Type: URINE SPECIMEN Ordering Facility: [facility] Address: [address] [place] [address] Result Comment: The [place] Diabetes Association (ADA) provides guidance for cutoff [...] Standards of Medical Care in Diabetes 2016, [place] [employer]. Diabetes Care. 2016.39(Suppl 1). Performed By: #### 6 30-4, 56203-4 #### [facility] CLIA [id number] [address] [place] [address] [place] Potassium [Moles/Vol] 4.6 mmol/L Normal 3.7-5.1 [facility] Comment on above: Order Comment: Domonique garcia Type: URINE SPECIMEN Ordering Facility: [facility] Address: [address] [place] [address] Performed By: #### 6 30-4, 08777-3 #### [facility] CLIA [id number] [address] [place] [address] [place] Sodium [Moles/Vol] 130 mmol/L Low 136-144 [facility] Comment on above: Order Comment: Speci men Type: URINE SPECIMEN Ordering Facility: [facility] Address: [address] [place] [address] Performed By: #### 6 30-4, 65686-8 #### [facility] CLIA [id number] [address] [place] [address] [place] Urea nitrogen [Mass/Vol] 23 mg/dL Normal 9-24 [facility] Comment on above: Order Comment: Speci men Type: URINE SPECIMEN Ordering Facility: [facility] Address: [address] [place] [address] Performed By: #### 6 30-4, 02141-5 #### [facility] CLIA [id number] [address] [place] [address] [place] CBC W Auto Differential pane l (Bld)on 11-07-2021 Basophils/100 WBC (Bld) 0.0 % Normal [facility] Comment on above: Order Comment: Speci men Type: URINE SPECIMEN Ordering Facility: [facility] Address: [address] [place] [address] Performed By: #### 6 30-4, 60817-7 #### [facility] CLIA [id number] [address] [place] [address] [place] Differential cell count method Nom (Bld) Manual Normal [facility] ital Comment on above: Order Comment: Speci men Type: URINE SPECIMEN Ordering Facility: [facility] Address: [address] [place], [place] [address] Performed By: #### 6 30-4, 49121-3 #### [facility] CLIA [id number] [address] [place] [address] [place] Eosinophils (Bld) [#/Vol] 0.10 10*3/uL Normal <0.46 [facility] Comment on above: Order Comment: Speci men Type: URINE SPECIMEN Ordering Facility: [facility] Address: [address] [place], [place] [address] Performed By: #### 6 30-4, 85767-9 #### [facility] CLIA [id number] [address] [place] [address] [place] Eosinophils/100 WBC (Bld) 1.0 % Normal [facility] Comment on above: Order Comment: Speci men Type: URINE SPECIMEN Ordering Facility: [facility] Address: [address] [place] [address] Performed By: #### 6 30-4, 51697-3 #### [facility] CLIA [id number] [address] [place] [address] [place] Erythrocyte distribution width (RBC) [Ratio] 11.5 % Normal 11.5-15.0 [facility] Comment on above: Order Comment: Speci men Type: URINE SPECIMEN Ordering Facility: [facility] Address: [address] [place] [address] Performed By: #### 6 30-4, 23756-8 #### [facility] CLIA [id number] [address] [place] [address] [place] Hematocrit (Bld) [Volume fraction] 39.8 % Normal 39.0-51.0 [facility] Comment on above: Order Comment: Speci men Type: URINE SPECIMEN Ordering Facility: [facility] Address: [address] [place], [place] [address] Performed By: #### 6 30-4, 17610-3 #### [facility] CLIA [id number] [address] [place] [address] [place] Hemoglobin (Bld) [Mass/Vol] 13.4 g/dL Normal 13.0-17.0 [facility] Comment on above: Order Comment: Speci men Type: URINE SPECIMEN Ordering Facility: [facility] Address: [address] [place], [place] [address] Performed By: #### 6 30-4, 22978-1 #### [facility] CLIA [id number] [address] [place] [address] Lymphocytes (Bld) [#/Vol] 1.67 10*3/uL Normal 1.00-4.00 [facility] Comment on above: Order Comment: Speci men Type: URINE SPECIMEN Ordering Facility: [facility] Address: [address] [place] [address] Performed By: #### 6 30-4, 59288-9 #### [facility] CLIA [id number] [address] [place] [address] Lymphocytes/100 WBC (Bld) 17.0 % Normal [facility] Comment on above: Order Comment: Speci men Type: URINE SPECIMEN Ordering Facility: [facility] Address: [address] [place] [address] Performed By: #### 6 30-4, 88407-2 #### [facility] CLIA [id number] [address] [place] [address] [place] MCH (RBC) [Entitic mass] 31.5 pg Normal 26.0-34.0 [facility] Comment on above: Order Comment: Speci men Type: URINE SPECIMEN Ordering Facility: [facility] Address: [address] [place], [place] [address] Performed By: #### 6 30-4, 01348-8 #### [facility] CLIA [id number] [address] [place] [address] [place] MCHC (RBC) [Mass/Vol] 33.7 g/dL Normal 30.5-36.0 [facility] Comment on above: Order Comment: Speci men Type: URINE SPECIMEN Ordering Facility: [facility] Address: [address] [place], [place] [address] Performed By: #### 6 30-4, 54541-8 #### [facility] CLIA [id number] [address] [place] [address] [place] MCV (RBC) [Entitic vol] 93.4 fL Normal 80.0-100.0 [facility] Comment on above: Order Comment: Speci men Type: URINE SPECIMEN Ordering Facility: [facility] Address: [address] [place] [address] Performed By: #### 6 30-4, 25871-3 #### [facility] CLIA [id number] [address] [place] [address] [place] Neutrophils (Bld) [#/Vol] 6.29 10*3/uL Normal 1.45-7.50 [facility] Comment on above: Order Comment: Speci men Type: URINE SPECIMEN Ordering Facility: [facility] Address: [address] [place] [address] Performed By: #### 6 30-4, 78843-3 #### [facility] CLIA [id number] [address] [place] [address] [place] Neutrophils/100 WBC (Bld) 64.0 % Normal [facility] Comment on above: Order Comment: Speci men Type: URINE SPECIMEN Ordering Facility: [facility] Address: [address] [place] [address] Performed By: #### 6 30-4, 71001-9 #### [facility] CLIA [id number] [address] [place] [address] [place] Nucleated RBC/100 WBC (Bld) [Ratio] 0.0 /100 WBC Normal [facility] Comment on above: Order Comment: Speci men Type: URINE SPECIMEN Ordering Facility: [facility] Address: [address] [place], [place] [address] Performed By: #### 6 30-4, 65803-9 #### [facility] CLIA [id number] [address] [place] [address] [place] PLATELET ESTIMATE Adequate Normal [facility] Comment on above: Order Comment: Speci men Type: URINE SPECIMEN Ordering Facility: [facility] Address: [address] [place], [place] [address] Performed By: #### 6 30-4, 32863-4 #### [facility] CLIA [id number] [address] [place] [address] [place] Platelet mean volume (Bld) [Entitic vol] 10.2 fL Normal 9.0-12.7 [facility] Comment on above: Order Comment: Speci men Type: URINE SPECIMEN Ordering Facility: [facility] Address: [address] [place], [place] [address] Performed By: #### 6 30-4, 44069-0 #### [facility] CLIA [id number] [address] [place] [address] [place] Platelets (Bld) [#/Vol] 258 10*3/uL Normal 150-400 [facility] Comment on above: Order Comment: Speci men Type: URINE SPECIMEN Ordering Facility: [facility] Address: [address] [place], [place] [address] Performed By: #### 6 30-4, 86737-9 #### [facility] CLIA [id number] [address] [place] [address] [place] RBC (Bld) [#/Vol] 4.26 10*6/uL Normal 4.20-6.00 [facility] Comment on above: Order Comment: Speci men Type: URINE SPECIMEN Ordering Facility: [facility] Address: [address] [place], [place] [address] Performed By: #### 6 30-4, 31140-0 #### [facility] CLIA [id number] [address] [place] [address] [place] RED CELL MORPH Reviewed: unremarkable Normal [facility] Comment on above: Order Comment: Speci men Type: URINE SPECIMEN Ordering Facility: [facility] Address: [address] [place] [address] Performed By: #### 6 30-4, 77797-8 #### [facility] CLIA [id number] [address] [place] [address] [place] WAM - ABS BASO 0.00 k/uL Normal <0.11 [facility] Comment on above: Order Comment: Speci men Type: URINE SPECIMEN Ordering Facility: [facility] Address: [address] [place], [place] [address] Performed By: #### 6 30-4, 77427-0 #### [facility] CLIA [id number] [address] [place] [address] [place] WAM - ABS MONO 1.77 k/uL High <0.87 [facility] Comment on above: Order Comment: Speci men Type: URINE SPECIMEN Ordering Facility: [facility] Address: [address] [place], [place] [address] Performed By: #### 6 30-4, 52809-3 #### [facility] CLIA [id number] [address] [place] [address] [place] WAM - MONO% 18.0 % Normal [facility] Comment on above: Order Comment: Speci men Type: URINE SPECIMEN Ordering Facility: [facility] Address: [address] [place], [place] [address] Performed By: #### 6 30-4, 54565-4 #### [facility] CLIA [id number] [address] [place] [address] [place] WAM ABSOLUTE NRBC <0.01 Normal <0.01 [facility] Comment on above: Order Comment: Speci men Type: URINE SPECIMEN Ordering Facility: [facility] Address: [address] [place], [place] [address] Performed By: #### 6 30-4, 84440-4 #### [facility] CLIA [id number] [address] [place], [place] [id number] [place] WBC (Bld) [#/Vol] 9.83 10*3/uL Normal 3.70-11.00 [facility] Comment on above: Order Comment: Speci men Type: URINE SPECIMEN Ordering Facility: [facility] Address: [address] [place] [address] Performed By: #### 6 30-4, 73264-4 #### [facility] CLIA [id number] [address] [place] [address] [place] ED NOTEon 11-07-2021 ED NOTE HNO ID: [id number] Author: Yoshi Schumacher RN Service: ? Author Type: Registered Nurse Type: ED Notes Filed: 11/07/2021 5:14 PM Note Text: Pt provided with discharged instructions. Medications gone over and all questions answered. Pt. Left with steady gait with friend for a ride. [facility] ED NOTE HNO ID: [id number] Author: Flaquita Donnelly RN Service: ? Author Type: Registered Nurse Type: ED Notes Filed: 11/07/2021 1:24 PM Note Text: Pt to ED for urinary retention. Pt had appointment with Urology on Wednesday, but was not able to be seen. Pt denies pain, but reports pressure in the bladder. Pt states he is not able to urinate completely and reports dribbling. [facility] ED PROV NOTEon 11-07-2021 ED PROV NOTE HNO ID: [id number] Author: Keely Gutierrez DO Service: Emergency Medicine [...] this Wednesday with his urologist out of [place] but was notified that his urologist had [...] Abnormal; Notable for the following components: Abs Merced 1.77 (*) <0.87 k/uL All other components [...] cysts one of which is mildly complex. Mess Cook: LIANA Transcribe Date/Time: Nov 07 2021 2:57P [...] at th (more content not included)... Normal [facility] US KIDNEY/BLADDERon 11-08-19 US KIDNEY/BLADDER * * *Final Report* * * DATE OF EXAM: Nov 07 2021 2:52PM [facility] 1055 - US KIDNEY/BLADDER / PROCEDURE [...] cysts one of which is mildly complex. Mess Cook: [facility] Transcribe Date/Time: Nov 07 2021 2:57P Dictated by : NEHEMIAS COLBERT MD This examination was interpreted and the report reviewed and electronically signed by: NEHEMIAS COLBERT MD on Nov 07 2021 3:09PM EST [id number] Normal [facility] Urinalysis complete panel (U )on 11-07-2021 Bilirubin Ql (U) Negative Normal Negative [facility] Comment on above: Order Comment: Speci men Type: URINE SPECIMEN Ordering Facility: [facility] Address: [address] [place] [address] Performed By: #### 6 30-4, 07292-3 #### [facility] CLIA [id number] [address] [place] [address] [place] Clarity (Unsp spec) Clear Normal Clear [facility] Comment on above: Order Comment: Speci men Type: URINE SPECIMEN Ordering Facility: [facility] Address: [address] [place] [address] Performed By: #### 6 30-4, 26158-3 #### [facility] CLIA [id number] [address] [place] [address] [place] Color (U) Yellow Normal Yellow [facility] Comment on above: Order Comment: Speci men Type: URINE SPECIMEN Ordering Facility: [facility] Address: [address] [place] [address] Performed By: #### 6 30-4, 64243-6 #### [facility] CLIA [id number] [address] [place] [address] [place] Epithelial cells LM.HPF (Urine sed) [#/Area] Few Normal [facility] Comment on above: Order Comment: Speci men Type: URINE SPECIMEN Ordering Facility: [facility] Address: [address] [place] [address] Performed By: #### 6 30-4, 29280-6 #### [facility] CLIA [id number] [address] [place] [address] [place] Glucose Test strip (U) [Mass/Vol] Negative Normal Negative [facility] Comment on above: Order Comment: Speci men Type: URINE SPECIMEN Ordering Facility: [facility] Address: [address] [place] [address] Performed By: #### 6 30-4, 53337-6 #### [facility] CLIA [id number] [address] [place] [address] [place] Hemoglobin Ql (U) Negative Normal Negative [facility] Comment on above: Order Comment: Speci men Type: URINE SPECIMEN Ordering Facility: [facility] Address: [address] [place], [place] [address] Performed By: #### 6 30-4, 44360-4 #### [facility] CLIA [id number] [address] [place] [address] [place] Hyaline casts (Urine sed) [#/Area] 1-3 /LPF Abnormal 0 /LPF [facility] Comment on above: Order Comment: Speci men Type: URINE SPECIMEN Ordering Facility: [facility] Address: [address] [place], [place] [address] Performed By: #### 6 30-4, 22641-3 #### [facility] CLIA [id number] [address] [place] [address] [place] Ketones Ql (U) Trace Abnormal Negative [facility] Comment on above: Order Comment: Speci men Type: URINE SPECIMEN Ordering Facility: [facility] Address: [address] [place] [address] Performed By: #### 6 30-4, 88722-8 #### [facility] CLIA [id number] [address] [place] [address] [place] Leukocyte esterase Test strip Ql (U) Negative Normal Negative [facility] Comment on above: Order Comment: Speci men Type: URINE SPECIMEN Ordering Facility: [facility] Address: [address] [place] [address] Performed By: #### 6 30-4, 86936-0 #### [facility] CLIA [id number] [address] [place] [address] [place] Nitrite Ql (U) Negative Normal Negative [facility] Comment on above: Order Comment: Speci men Type: URINE SPECIMEN Ordering Facility: [facility] Address: [address] [place], [place] [address] Performed By: #### 6 30-4, 52756-8 #### [facility] CLIA [id number] [address] [place] [address] [place] pH (U) 5.5 [pH] Normal 5.0-8.0 [facility] Comment on above: Order Comment: Speci men Type: URINE SPECIMEN Ordering Facility: [facility] Address: [address] [place] [address] Performed By: #### 6 30-4, 53253-3 #### [facility] CLIA [id number] [id number] STATES [facility] Protein (U) [Mass/Vol] Negative Normal Negative [facility] Comment on above: Order Comment: Speci men Type: URINE SPECIMEN Ordering Facility: [facility] Address: [address] [place] [address] Performed By: #### 6 30-4, 81614-2 #### [facility] CLIA [id number] [address] [place] [address] [place] RBC LM.HPF (Urine sed) [#/Area] 0-3 /HPF Normal 0-3 /HPF [facility] Comment on above: Order Comment: Speci men Type: URINE SPECIMEN Ordering Facility: [facility] Address: [address] [place] [address] Performed By: #### 6 30-4, 96111-8 #### [facility] CLIA [id number] [address] [place] [address] [place] Specific gravity (U) [Rel density] 1.024 Normal 1.005-1.030 [facility] Comment on above: Order Comment: Speci men Type: URINE SPECIMEN Ordering Facility: [facility] Address: [address] [place] [address] Performed By: #### 6 30-4, 24447-1 #### [facility] CLIA [id number] [address] [place] [address] [place] Urobilinogen Ql (U) 0.2 EU/dL Normal 0.2-1.0 EU/dL [facility] Comment on above: Order Comment: Speci men Type: URINE SPECIMEN Ordering Facility: [facility] Address: [address] [place], [place] [address] Performed By: #### 6 30-4, 39972-1 #### [facility] CLIA [id number] [address] [place] [address] [place] WBC LM.HPF (Urine sed) [#/Area] 0-5 /HPF Normal 0-5 /HPF [facility] Comment on above: Order Comment: Speci men Type: URINE SPECIMEN Ordering Facility: [facility] Address: [address] [place], [place] [address] Performed By: #### 6 30-4, 82092-7 #### [facility] CLIA [id number] [address] [place] [address] [address] [place] Ambulatory Visit Summaryon 0 10-28-2021 Ambulatory Visit Summary NORBERTO WASHINGTON :1940 Visit Date:10/28/2021 Ambulatory Visit Instructions Your Diagnosis BPH with urinary obstruction Nocturia Post-void dribbling Incomplete emptying of bladder Urinary incontinence Tests Performed Urnls Dip Stick Auto w/o Microscopy POC 98240 Your Care Team Attending Physician - Paul [...] Where: [facility] [address], [place] [address]- Medications What How Much When Instructions Unchanged [...] Urnls Dip Stick Auto w/o Microscopy POC 28351 (10/28/2021) Bilirubin Urine Dipstick - Negative Blood Urine Dipstick - Negative Glucose Urine Dipstick - Negative Ketones Urine Dipstick - Negative Leukocytes Urine Dipstick - Negative Nitrite Urine Dipstick - Negative Protein Urine Dipstick - Negative Specific Manning Urine Dipstick - 1.015 Urine Appearance Urine [...] ? Urina (more content not included)... Normal [facility] Patient Educationon 10-29-19 Patient Education [...] Follow these instructions at home: ? Take ymmt-van-npnhiii and prescription medicines only as told by [...] You d (more content not included)... Normal [facility] Urology Office/Clinic Noteon 10-28-2021 Urology [...] urine and/or bladder capacity by US- non-imaging 16393 PSA Total Urnls Dip Stick Auto w/o Microscopy POC 31597 Urology Procedure Order 2. Nocturia (R35.1: Nocturia) moderate, Variable 2-5 times per night Ordered: Measure Post Void residual urine and/or bladder capacity by US- non-imaging 15877 PSA Total Urology Procedure Order 3. Post-void dribbling (N39.43: Post-v (more content not included)... Normal [facility] Comment on above: Result Comment: Elec tronically Signed By: Billy Connolly MD, Paul Valdes\.br\Date and Time Signed: 10/28/21 08:47 EDT\.br\Electronically Co-Signed By: Jessie Rivera\.br\Date and Time Co-Signed: 10/28/21 08:39 EDT MICROALBUMIN URINEon 022 Albumin, Urine 5.6 ug/mL Normal Not Estab. [facility] Comment on above: Performed By: #### M ALBLC #### [facility] [address] [place] [address] Dr. Juan Pablo Kaminski US CAROTID ART [...] Date: 2021-10-23 17:19 Normal [facility] CBC AUTO DIFFon 10-21-2021 BASO # 0.0 103/ul Normal 0.0-0.1 [facility] Comment on above: Performed By: #### A 1C #### [facility] [address] [place] [address] Dr. Juan Pablo Kaminski Basophils/100 WBC (Bld) 0.5 % Normal 0.2-2.0 [facility] Comment on above: Performed By: #### A 1C #### [facility] [address] [place] [address] Dr. Juan Pablo Kaminski EO # 0.3 103/ul Normal 0.0-0.7 [facility] Comment on above: Performed By: #### A 1C #### [facility] [address] [place] [address] Dr. Juan Pablo Kaminski Eosinophils/100 WBC (Bld) 3.6 % Normal 0.9-7.0 [facility] Comment on above: Performed By: #### A 1C #### [facility] [address] [place] [address] Dr. Juan Pablo Kaminski Erythrocyte distribution width (RBC) [Ratio] 11.1 % Normal 11.0-15.0 [facility] Comment on above: Performed By: #### A 1C #### [facility] [address] [place] [address] Dr. Juan Pablo Kaminski Hematocrit (Bld) [Volume fraction] 41.8 % Critically low 42.0-54.0 [facility] Comment on above: Performed By: #### A 1C #### [facility] [address] [place] [address] Dr. Juan Pablo Kaminski Hemoglobin (Bld) [Mass/Vol] 14.1 g/dL Normal 14.0-18.0 [facility] Comment on above: Performed By: #### A 1C #### [facility] [address] [place] [address] Dr. Juan Pablo Kaminski IG # 0.03 10e3/ul Normal 0.00-0.03 [facility] Comment on above: Performed By: #### A 1C #### [facility] [address] [place] [address] Dr. Juan Pablo Kaminski IG % 0.4 % Normal 0.0-0.5 [facility] Comment on above: Performed By: #### A 1C #### [facility] [address] [place] [address] Dr. Juan Pablo Kaminski LYMPH # 2.2 103/ul Normal 1.2-3.8 [facility] Comment on above: Performed By: #### A 1C #### [facility] [address] [place] [address] Dr. Juan Pablo Kaminski Lymphocytes/100 WBC (Bld) 29.4 % Normal 20.5-60.0 [facility] Comment on above: Performed By: #### A 1C #### [facility] [address] [place] [address] Dr. Juan Pablo Kaminski MANUAL DIFF REQ NO Normal [facility] Comment on above: Performed By: #### A 1C #### [facility] [address] [place] [address] Dr. Juan Pablo Kaminski MCH (RBC) [Entitic mass] 31.8 pg Normal 25.9-34.0 [facility] Comment on above: Performed By: #### A 1C #### [facility] [address] [place] [address] [address] Juan Pablo Kaminski MCHC (RBC) [Mass/Vol] 33.7 g/dL Normal 29.9-35.2 [facility] Comment on above: Performed By: #### A 1C #### [facility] [address] [address] [address] Juan Pablo Kaminski MCV (RBC) [Entitic vol] 94.1 fL Critically high 80.0-94.0 [facility] Comment on above: Performed By: #### A 1C #### [facility] [address] [place] [address] [address] Juan Pablo Kaminski MONO # 0.9 103/ul Critically high 0.3-0.8 [facility] Comment on above: Performed By: #### A 1C #### [facility] [address] [place] [address] [address] Juan Pablo Kaminski Monocytes/100 WBC (Bld) 11.7 % Normal 1.7-12.0 [facility] Comment on above: Performed By: #### A 1C #### [facility] [address] [place] [address] [address] Juan Pablo Kaminski NEUT # 4.0 103/ul Normal 1.4-6.5 [facility] Comment on above: Performed By: #### A 1C #### [facility] [address] [place] [address] [address] Juan Pablo Kaminski Neutrophils/100 WBC (Bld) 54.4 % Normal 43.0-75.0 [facility] Comment on above: Performed By: #### A 1C #### [facility] [address] [address] [address] Juan Pablo Kaminski Platelet mean volume (Bld) [Entitic vol] 8.6 fL Critically low 9.5-13.5 [facility] Comment on above: Performed By: #### A 1C #### [facility] [address] [place] [address] [address] Juan Pablo Kaminski PLT 231 103/ul Normal 150-450 [facility] Comment on above: Performed By: #### A 1C #### [facility] [address] [place] [address] [address] Juan Pablo Kaminski RBC 4.44 106/ul Critically low 4.70-6.10 [facility] Comment on above: Performed By: #### A 1C #### [facility] [address] [place] [address] [address] Juan Pablo Kaminski WBC 7.3 103/ul Normal 4.0-11.0 [facility] Comment on above: Performed By: #### A 1C #### [facility] [address] [place] [address] [address] Juan Pablo Kaminski DIRECT LDLon 10-21-2021 Cholesterol in LDL [Mass/Vol] 106 mg/dL Normal [facility] Comment on above: Performed By: #### A LT BMP, DLDL #### [facility] [address] [place] [address] Dr. Juan Pablo Kaminski DLDL NORMAL SEE BELOW Normal [facility] Comment on above: Result Comment: <100 mg/dl OPTIMAL 100 - 129 mg/dl NEAR OR ABOVE OPTIMAL 130 - 159 mg/dl BORDERLINE HIGH 160 - 189 mg/dl HIGH >190 mg/dl VERY HIGH Performed By: #### A LT, BMP, DLDL #### [facility] [address] [address] [address] Juan Pablo Kaminski GLYCOHEMOGLOBIN A1Con 2021 ADA RECOMMENDATION SEE BELOW Normal The [facility] Comment on above: Result Comment: ADA RECOMMENDED LIMIT 4.0 - 6.0 ADA THERAPEUTIC TARGET < 7.0 ACTION SUGGESTED > 7.0 Performed By: #### A 1C #### [facility] [address] [place] [address] Dr. Juan Pablo Kaminski Glucose [Mass/Vol] 120 mg/dL Normal [facility] Comment on above: Performed By: #### A 1C #### [facility] [address] [place] [address] Dr. Juan Pablo Kaminski HbA1c (Bld) [Mass fraction] 5.8 % Normal 4.5-6.2 [facility] Comment on above: Performed By: #### A 1C #### [facility] [address] [place] [address] Dr. Juan Pablo Kaminski PROF CHEM 8 (BAS METB)on Anion gap [Moles/Vol] 12.7 mmol/L Normal Th [facility] Comment on above: Performed By: #### A 1C #### [facility] [address] [place] [address] Dr. Juan Pablo Kaminski Calcium [Mass/Vol] 8.7 mg/dL Normal 8.5-10.1 [facility] Comment on above: Performed By: #### A 1C #### [facility] [address] [place] [address] Dr. Juan Pablo Kaminski Chloride [Moles/Vol] 98 mmol/L Normal 98-107 [facility] Comment on above: Performed By: #### A 1C #### [facility] [address] [place] [address] Dr. Juan Pablo Kaminski CO2 [Moles/Vol] 28.0 mmol/L Normal 21.0-32.0 [facility] Comment on above: Performed By: #### A 1C #### [facility] [address] [place] [address] Dr. Juan Pablo Kaminski Creatinine [Mass/Vol] 1.07 mg/dL Normal 0.70-1.30 [facility] Comment on above: Performed By: #### A 1C #### [facility] [address] [place] [address] Dr. Juan Pablo Kaminski EGFR-AF SOUTH AFRICAN >60 Normal >=60 [facility] Comment on above: Performed By: #### A 1C #### [facility] [address] [place] [address] Dr. Juan Pablo Kaminski EGFR-NON AF SOUTH AFRICAN >60 Normal >=60 [facility] Comment on above: Performed By: #### A 1C #### [facility] [address] [place] [address] Dr. Juan Pablo Kaminski Glucose [Mass/Vol] 133 mg/dL Critically high 74-106 [facility] Comment on above: Performed By: #### A 1C #### [facility] [address] [place] [address] Dr. Juan Pablo Kaminski Potassium [Moles/Vol] 4.7 mmol/L Normal 3.5-5.1 [facility] Comment on above: Performed By: #### A 1C #### [facility] [address] [place] [address] Dr. Juan Pablo Kaminski Sodium [Moles/Vol] 134 mmol/L Critically low 136-[address] [facility] Comment on above: Performed By: #### A 1C #### [facility] [address] [place] [address] Dr. Juan Pablo Kaminski Urea nitrogen [Mass/Vol] 17.0 mg/dL Normal 7.0-18.0 [facility] Comment on above: Performed By: #### A 1C #### [facility] [address] [place] [address] Dr. Juan Pablo Kaminski Urea nitrogen/Creatinine [Mass ratio] 15.9 mg/mg Normal [facility] Comment on above: Performed By: #### A 1C #### [facility] [address] [place] [address] Dr. [facility] ALT [Catalytic activity/Vol] 31 U/L Normal 16-63 [facility] Comment on above: Performed By: #### A 1C #### [facility] [address] [place] [address] Dr. Juan Pablo Kaminski GLYCOHEMOGLOBIN A1Con 2021 ADA RECOMMENDATION SEE BELOW Normal [facility] Comment on above: Result Comment: ADA RECOMMENDED LIMIT 4.0 - 6.0 ADA THERAPEUTIC TARGET < 7.0 ACTION SUGGESTED > 7.0 Performed By: #### A 1C #### [facility] [address] [place] [address] Dr. Juan Pablo Kaminski Glucose [Mass/Vol] 131 mg/dL Normal [facility] Comment on above: Performed By: #### A 1C #### [facility] [address] [place] [address] Dr. Juan Pablo Kaminski HbA1c (Bld) [Mass fraction] 6.2 % Normal 4.5-6.2 [facility] Comment on above: Performed By: #### A 1C #### [facility] [address] [place] [address] Dr. Juan Pablo Kaminski Vital Signs Date Time Vital Sign Value Performing Clinician Denis diehly 03-17-2023 10:30-0500 Body height 190.5 cm Campbell Ball Other [employer] Other 03-17-2023 10:30-0500 Body mass index (BMI) [Ratio] 27.55 kg/m2 Campbell Ball Other [employer] Other 03-17-2023 10:30-0500 Body weight 99.97 kg Campbell Ball Other [employer] Other 03-17-2023 10:30-0500 Diastolic blood pressure 67 mm[Hg] Campbell Ball Other [employer] Other 03-17-2023 10:30-0500 Respiratory rate 12 /min Campbell Ball Other [employer] Other 03-17-2023 10:30-0500 Systolic blood pressure 159 mm[Hg] Campbell Ball Other [employer] Other 02-23-2023 09:30-0500 Body height 190.5 cm Campbell Ball Other [employer] Other 02-23-2023 09:30-0500 Body mass index (BMI) [Ratio] 28.02 kg/m2 Campbell Ball Other [employer] Other 02-23-2023 09:30-0500 Body weight 101.7 kg Campbell Ball Other [employer] Other 02-23-2023 09:30-0500 Diastolic blood pressure 78 mm[Hg] Campbell Ball Other [employer] Other 02-23-2023 09:30-0500 Respiratory rate 12 /min Campbell Ball Other [employer] Other 02-23-2023 09:30-0500 Systolic blood pressure 157 mm[Hg] Campbell Ball Other [employer] Other 02-19-2023 10:45-0500 Body height 190.5 cm Campbell Ball Other [employer] Other 02-19-2023 10:45-0500 Body mass index (BMI) [Ratio] 28 kg/m2 Campbell Ball Other [employer] Other 02-19-2023 10:45-0500 Body weight 101.61 kg Campbell Ball Other [employer] Other 02-19-2023 10:45-0500 Diastolic blood pressure 72 mm[Hg] Campbell Ball Other [employer] Other 02-19-2023 10:45-0500 Respiratory rate 12 /min Campbell Ball Other [employer] Other 02-19-2023 10:45-0500 Systolic blood pressure 144 mm[Hg] Campbell Ball Other [employer] Other 02-02-2023 13:37-0500 Body weight 102.06 kg [facility] [employer] A[employer] Work Phone: [facility] 02-02-2023 13:37-0500 Diastolic blood pressure 70 mm[Hg] [employer] [employer] [facility] [employer] SERVICES CONS[employer]E [employer]ER[employer] ANALYST Work Phone: [facility] 02-02-2023 13:37-0500 Heart rate 65 /min [employer] [employer] [facility] [employer] SERVICES CONSULTANT.E [employer]ER[employer] ANALYST Work Phone: [facility] 02-02-2023 13:37-0500 Systolic blood pressure 146 mm[Hg] [facility] [employer] [facility] [employer] SERVICES CONSULTANT.E [employer]ER[employer] ANALYST Work Phone: [facility] 09-22-2022 12:15-0400 Body height 190.5 cm Campbell Ball Other [employer] Other 09-22-2022 12:15-0400 Diastolic blood pressure 82 mm[Hg] Campbell Ball Other [employer] Other 09-22-2022 12:15-0400 Systolic blood pressure 135 mm[Hg] Campbell Ball Other [employer] Other 09-17-2022 09:00-0400 Body height 190.5 cm Campbell Ball Other [employer] Other 09-17-2022 09:00-0400 Body mass index (BMI) [Ratio] 27.57 kg/m2 Campbell Ball Other [employer] Other 09-17-2022 09:00-0400 Body weight 100.06 kg Campbell Ball Other [employer] Other 09-17-2022 09:00-0400 Diastolic blood pressure 62 mm[Hg] Campbell Ball Other [employer] Other 09-17-2022 09:00-0400 Respiratory rate 12 /min Campbell Ball Other [employer] Other 09-17-2022 09:00-0400 Systolic blood pressure 128 mm[Hg] Campbell Ball Other [employer] Other 06-18-2022 10:00-0400 Body height 190.5 cm Campbell Ball Other [employer] Other 06-18-2022 10:00-0400 Body mass index (BMI) [Ratio] 28.02 kg/m2 Campbell Ball Other [employer] Other 06-18-2022 10:00-0400 Body weight 101.7 kg Campbell Ball Other [employer] Other 06-18-2022 10:00-0400 Diastolic blood pressure 62 mm[Hg] Campbell Ball Other [employer] Other 06-18-2022 10:00-0400 Respiratory rate 12 /min Campbell Ball Other [employer] Other 06-18-2022 10:00-0400 Systolic blood pressure 119 mm[Hg] Campbell Ball Other [employer] Other 04-08-2022 12:00-0500 Body height 190.5 cm Campbell Ball Other [employer] Other 04-08-2022 12:00-0500 Body mass index (BMI) [Ratio] 27.82 kg/m2 Campbell Ball Other [employer] Other 04-08-2022 12:00-0500 Body temperature 97.1 [degF] Campbell Ball Other [employer] Other 04-08-2022 12:00-0500 Body weight 100.97 kg Campbell Ball Other [employer] Other 04-08-2022 12:00-0500 Diastolic blood pressure 68 mm[Hg] Campbell Ball Other [employer] Other 04-08-2022 12:00-0500 SaO2% (BldA) [Mass fraction] 97 % Campbell Ball Other [employer] Other 04-08-2022 12:00-0500 Systolic blood pressure 124 mm[Hg] Campbell Ball Other [employer] Other 03-20-2022 10:00-0500 Body height 190.5 cm Campbell Ball Other [employer] Other 03-20-2022 10:00-0500 Body mass index (BMI) [Ratio] 27.95 kg/m2 Campbell Ball Other [employer] Other 03-20-2022 10:00-0500 Body weight 101.42 kg Campbell Ball Other [employer] Other 03-20-2022 10:00-0500 Diastolic blood pressure 60 mm[Hg] Campbell Ball Other [employer] Other 03-20-2022 10:00-0500 Respiratory rate 12 /min Campbell Ball Other [employer] Other 03-20-2022 10:00-0500 Systolic blood pressure 112 mm[Hg] Campbell Ball Other [employer] Other 01-08-2022 08:47-0400 Body weight 97.52 kg Leonard Dugan MD Work Phone: [facility] 01-08-2022 08:47-0400 Diastolic blood pressure 61 mm[Hg] Leonard Dugan MD Work Phone: [facility] 01-08-2022 08:47-0400 Heart rate 72 /min Leonard Dugan MD Work Phone: [facility] 01-08-2022 08:47-0400 Systolic blood pressure 139 mm[Hg] Leonard Dugan MD Work Phone: [facility] 12-26-2021 08:32-0400 Body temperature 98 [degF] DO Campbell Ball Work Phone: [facility] 12-26-2021 08:32-0400 Diastolic blood pressure 62 mm[Hg] DO Campbell Ball Work Phone: [facility] 12-26-2021 08:32-0400 Heart rate 75 /min DO Campbell Ball Work Phone: [facility] 12-26-2021 08:32-0400 Respiratory rate 18 /min DO Campbell Ball Work Phone: [facility] 12-26-2021 08:32-0400 SaO2% (BldA) [Mass fraction] 98 % DO Campbell Ball Work Phone: [facility] 12-26-2021 08:32-0400 Systolic blood pressure 146 mm[Hg] DO Campbell Ball Work Phone: [facility] 12-17-2021 16:22-0400 Body height 190.5 cm DO Campbell Ball Work Phone: [facility] 12-17-2021 16:22-0400 Body weight 97.52 kg DO Campbell Ball Work Phone: [facility] 12-17-2021 16:19-0400 Body temperature 98.4 [degF] DO Campbell Ball Work Phone: [facility] 12-17-2021 16:19-0400 Diastolic blood pressure 63 mm[Hg] DO Campbell Ball Work Phone: [facility] 12-17-2021 16:19-0400 Heart rate 66 /min DO Campbell Ball Work Phone: [facility] 12-17-2021 16:19-0400 Respiratory rate 16 /min DO Campbell Ball Work Phone: [facility] 12-17-2021 16:19-0400 SaO2% (BldA) [Mass fraction] 96 % DO Campbell Ball Work Phone: [facility] 12-17-2021 16:19-0400 Systolic blood pressure 135 mm[Hg] DO Campbell Ball Work Phone: [facility] 12-16-2021 14:41-0400 Diastolic blood pressure 62 mm[Hg] Leonard Dugan MD Work Phone: [facility] 12-16-2021 14:41-0400 Heart rate 69 /min Leonard Dugan MD Work Phone: [facility] 12-16-2021 14:41-0400 Respiratory rate 16 /min eLonard Dugan MD Work Phone: [facility] 12-16-2021 14:41-0400 Systolic blood pressure 141 mm[Hg] Leonard Dugan MD Work Phone: [facility] 12-11-2021 18:25-0400 Body temperature 97.5 [degF] DO Campbell Ball Work Phone: [facility] 12-11-2021 18:25-0400 Diastolic blood pressure 88 mm[Hg] DO Campbell Ball Work Phone: [facility] 12-11-2021 18:25-0400 Heart rate 67 /min DO Campbell Ball Work Phone: [facility] 12-11-2021 18:25-0400 Respiratory rate 20 /min DO Campbell Ball Work Phone: [facility] 12-11-2021 18:25-0400 SaO2% (BldA) [Mass fraction] 99 % DO Campbell Ball Work Phone: [facility] 12-11-2021 18:25-0400 Systolic blood pressure 175 mm[Hg] DO Campbell Ball Work Phone: [facility] 12-11-2021 16:57-0400 Body height 190.5 cm DO Campbell Ball Work Phone: [facility] 12-11-2021 16:57-0400 Body weight 98.5 kg DO Campbell Ball Work Phone: [facility] 12-10-2021 10:50-0400 Body weight 95.25 kg Nurse Kapoor Work Phone: [facility] 12-10-2021 10:50-0400 Diastolic blood pressure 80 mm[Hg] Nurse Emelia Work Phone: [facility] 12-10-2021 10:50-0400 Heart rate 59 /min Nurse Emelia Work Phone: [facility] 12-10-2021 10:50-0400 Systolic blood pressure 152 mm[Hg] Nurse Emelia Work Phone: [facility] 12-09-2021 14:27-0400 Body weight 95.25 kg [employer] [place] Work Phone: [facility] 12-09-2021 14:27-0400 Diastolic blood pressure 68 mm[Hg] [employer] [place] Work Phone: [facility] 12-09-2021 14:27-0400 Heart rate 70 /min [employer] [place] Work Phone: [facility] 12-09-2021 14:27-0400 Systolic blood pressure 164 mm[Hg] [employer] [place] Work Phone: [facility] 11-12-2021 11:23-0400 Body weight 96.16 kg Leonard Dugan MD Work Phone: [facility] 11-12-2021 11:23-0400 Diastolic blood pressure 73 mm[Hg] Leonard Dugan MD Work Phone: [facility] 11-12-2021 11:23-0400 Heart rate 56 /min Leonard Dugan MD Work Phone: [facility] 11-12-2021 11:23-0400 Systolic blood pressure 162 mm[Hg] Leonard Dugan MD Work Phone: [facility] Encounters Encounter Date Encounter Type Care Provider Facility Start: 04-15-2023 End: 04-15-2023 ambulatory Campbell Naranjo Other [employer] Other Start: 04-15-2023 Telephone encounter Campbell SINGH [facility] Start: 03-17-2023 End: 03-17-2023 ambulatory Campbell Naranjo Other [employer] Other Start: 03-17-2023 Transitional care manage srvc 14 day discharge Campbell Naranjo [facility] Start: 03-04-2023 End: 03-04-2023 ambulatory Campbell Naranjo Other [employer] Other Start: 03-04-2023 Telephone encounter Campbell SINGH [facility] Start: 02-23-2023 End: 02-23-2023 ambulatory Campbell Naranjo Other [employer] Other Start: 02-23-2023 Office outpatient vi sit 15 minutes Campbell Naranjo [facility] Start: 02-23-2023 Telephone encounter Campbell SINGH [facility] Start: 02-19-2023 End: 02-19-2023 ambulatory Campbell Naranjo Other [employer] Other Start: 02-19-2023 Office outpatient vi sit 15 minutes Campbell Naranjo [facility] Start: 02-02-2023 End: 02-02-2023 ambulatory LETICIA MILIAN Facility:[facility] Start: 02-02-2023 End: 02-02-2023 Patient encounter procedure Leticia Milian FINANCIAL SERVICES CONSULTANT.E [employer]ER[employer] ANALYST Work Phone: Urology Comment on above: BPH with obstruction /lower urinary tract symptoms (Primary Dx); Recurrent UTI; Weak urinary stream Start: 01-19-2023 End: 01-19-2023 ambulatory LETICIA MILIAN Facility:[facility] Start: 01-13-2023 End: 01-13-2023 Emergency department patient visit Campbell Naranjo Facility:[facility] Start: 01-13-2023 End: 01-13-2023 Emergency department patient visit DO Campbell Naranjo Work Phone: [facility] Work Phone: Start: 12-21-2022 End: 12-21-2022 ambulatory Campbell Naranjo Other [employer] Other Start: 12-21-2022 Telephone encounter [facility] Start: 09-22-2022 End: 09-22-2022 ambulatory Campbell Naranjo Other [employer] Other Start: 09-22-2022 Office outpatient vi sit 15 minutes Campbell Naranjo [facility] Start: 09-20-2022 End: 09-20-2022 ambulatory Cornell Baptiste Other [employer] Other Start: 09-20-2022 Encounter by [employer] raissa Baptiste [facility] Start: 09-17-2022 End: 09-17-2022 ambulatory Campbell Naranjo Other [employer] Other Start: 09-17-2022 Office outpatient vi sit 25 minutes Campbell Naranjo [facility] Start: 09-15-2022 End: 09-15-2022 ambulatory Cornell Baptiste Other [employer] Other Start: 09-15-2022 Encounter by [employer] raissa Baptiste [facility] Start: 07-28-2022 End: 07-28-2022 ambulatory LETICIA Kin MILIAN Facility:[facility] Start: 07-20-2022 End: 07-20-2022 ambulatory LETICIA MILIAN Facility:[facility] Start: 06-25-2022 End: 06-26-[address] CAMPBELL NARANJO Facility:[facility] Start: 06-18-2022 End: 06-18-2022 ambulatory Campbell Naranjo Other [employer] Other Start: 06-18-2022 Office outpatient vi sit 25 minutes Campbell Naranjo [facility] Start: 06-02-2022 End: 06-03-[address] CAMPBELL NARANJO Facility:[facility] Start: 04-08-2022 End: 04-08-2022 ambulatory Campbell Naranjo Other [employer] Other Start: 04-08-2022 Office outpatient vi sit 15 minutes Campbell Naranjo [facility] Start: 03-24-2022 End: 03-24-2022 ambulatory Campbell Naranjo Other [facility] [employer] Other Start: 03-24-2022 Telephone encounter Campbell SINGH [facility] Start: 03-20-2022 Office outpatient vi sit 25 minutes Campbell Naranjo [facility] Start: 03-20-2022 End: 03-21-[address] CAMPBELL NARANJO [facility] [employer] Other Start: 01-08-2022 End: 01-08-2022 Patient encounter procedure Leonard Dugan MD Work Phone: Urology Comment on above: Chronic epididymitis (Primary Dx); Left hydrocele; Weak urinary stream; BPH without obstruction/lower urinary tract symptoms; Epididymitis Start: 01-07-2022 Refill Leonard Dugan MD Work Phone: Urology Comment on above: Refill Request Start: 12-26-2021 End: 12-26-2021 ambulatory DO Campbell Naranjo Work Phone: [facility] Work Phone: Start: 12-26-2021 End: 12-26-2021 Discharged Recurring DO Campbell Naranjo Work Phone: [facility]Infusion [facility] - O/P Start: 12-25-2021 End: 12-26-[address] CAMPBELL NARANJO Facility: Start: 12-17-2021 End: 12-17-2021 Emergency department patient visit DO Campbell Naranjo Work Phone: [facility] Start: 12-16-2021 End: 12-16-2021 Patient encounter procedure Leonard Dugan MD Work Phone: Urology Comment on above: Retention of urine ( Primary Dx); Flaccid bladder Start: 12-15-2021 Telephone encounter Leticia puentes APRN.CNP Work Phone: Urology Comment on above: Patient Update Start: 12-11-2021 End: 12-11-2021 Emergency department patient visit DO Campbell Naranjo Work Phone: [facility] Start: 12-11-2021 Telephone encounter Leonard Dugan MD Work Phone: Urology Comment on above: Patient Update Start: 12-10-2021 End: 12-10-2021 Nursing evaluation of patient and report Nurse [facility] Work Phone: Urology Comment on above: Urinary tract infect ion without hematuria, site unspecified (Primary Dx); Feeling of incomplete bladder emptying; Benign prostatic hyperplasia with urinary retention Start: 12-09-2021 End: 12-09-2021 Nursing evaluation of patient and report [employer] [place] Work Phone: Urology Comment on above: Urinary frequency (P rimary Dx); Urinary urgency; Urinary straining; Feeling of incomplete bladder emptying Start: 12-08-2021 Telephone encounter Leonard Dugan MD Work Phone: Urology Comment on above: Appointment (Resched ule catheter change) Start: 11-26-2021 End: 11-27-2021 Emergency department patient visit CAMPBELL NARANJO Facility:[facility] Start: 11-21-2021 Telephone encounter Leonard [...] Emergency department patient visit RAN LEES JR Facility:[facility] Start: 10-23-2021 End: 10-24-[address] CAMPBELL NARANJO Facility:[facility] Start: 10-21-2021 End: 10-22-[address] CAMPBELL NARANJO Facility:[facility] Start: 10-20-2021 Adult health examination Campbell Naranjo Other [employer] Other Start: 07-17-2021 End: 07-18-[address] CAMPBELL NARANJO Facility: Start: 01-09-2020 End: 01-09-2020 Pre-procedure evaluation check Campbell Naranjo Other [facility] [employer] Other Procedures Date Procedure Procedure Detail Performing [...] microalbumin profile DTaP,Tdap,Td Vaccine (3 - Tdap) [facility] Start: 11-13-2022 Covid-19 Vaccine ( season) Covid-19 Vaccine ( season) [facility] Start: 03-15-2022 Advance Directive Discussion Advance Directive Discussion [facility] Start: 03-15-2022 Depression Assessment Depression Ass essment [facility] Start: 01-08-2022 End: 03-10-2022 Bacteria identified in Urine by Culture URINE CULTURE Microbiology Routine Left hydrocele Chronic epididymitis Weak urinary stream BPH without obstruction/lower urinary tract symptoms Epididymitis Expected: 01/08/2022 (Approximate), Expires: 03/10/2022 [facility] Work Phone: Comment on above: Expected: 01/08/2022 (Approximate), Expires: 03/10/2022 Start: 01-08-2022 End: 03-10-2022 URINALYSIS, REFLEX MICROSCOPIC URINALYSIS, REFLEX MICROSCOPIC Lab Routine Left hydrocele Chronic epididymitis Weak urinary stream BPH without obstruction/lower urinary tract symptoms Epididymitis Expected: 01/08/2022 (Approximate), Expires: 03/10/2022 [facility] Work Phone: Comment on above: Expected: 01/08/2022 (Approximate), Expires: 03/10/2022 Start: 12-10-2021 End: 02-09-2022 Bacteria identified in Urine by Culture URINE CULTURE Microbiology Routine Urinary tract infection without hematuria, site unspecified Expected: 12/10/2021, Expires: 02/09/2022 [facility] Work Phone: Comment on above: Expected: 12/10/2021 , Expires: 02/09/2022 Start: 11-13-2021 Influenza vaccination INFLUENZA (#1) [facility] Start: 11-12-2021 URODYNAMICS URODYNAMICS Pr ocedures Routine 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 Expected: 11/12/2021 (Approximate) [facility] Work Phone: Comment on above: Expected: 11/12/2021 (Approximate) Start: 08-11-2021 COVID-19 VACCINE (5 - Booster for Pfizer series) COVID-19 VACCINE (5 - Booster for Pfizer series) [facility] Start: 03-15-2021 ADVANCE DIRECTIVE DISCUSSION ADVANCE DIRECTIVE DISCUSSION [facility] Start: 03-15-2021 DEPRESSION ASSESSMENT DEPRESSION ASS ESSMENT [facility] [facility] Start: 05-26-2012 3 comp foot exam completed DIABETIC FOOT EXAM [facility] Start: 1998 Hepatitis B Vaccine (1 of 3 - Risk 3-dose series) Hepatitis B Vaccine (1 of 3 - Risk 3-dose series) [facility] Start: 1998 RSV Vaccine (1 - 1-d ose 60+ series) RSV Vaccine (1 - 1-dose 60+ series) [facility] Start: 1988 SHINGRIX VACCINE (1 of 2) SHINGRIX VACCINE (1 of 2) [facility] Start: 1957 Urine microalbumin profile DTAP,TDAP,TD (1 - Tdap) [facility] Start: 1956 Hepatitis B surface antibody level LDL CHOLESTEROL [facility] Start: 1948 Hepatitis B screening URINE ALBUMIN:CREATININE RATIO [facility] Start: 1948 Hepatitis C antibody , confirmatory test DILATED RETINAL EXAM [facility] Start: 1944 PNEUMOCOCCAL: 65+ (1 - PCV) PNEUMOCOCCAL: 65+ (1 - PCV) [facility] Start: 1943 Hemoglobin A1c/Hemoglobin.total in Blood HBA1C [facility] Bacteria identified in Urine by Culture [facility] End: 02-02-2024 Bacteria identified in Urine by Culture URINE CULTURE Microbiology Routine Recurrent UTI 5 Occurrences starting 02/02/2023 until 02/02/2024 [facility] Work Phone: Comment on above: 5 Occurrences starti ng 02/02/2023 until 02/02/2024 Patient Education [facility] Work Phone: Patient referral [facility] Work Phone: End: 01-14-2024 Urinalysis complete panel - Urine URINALYSIS, WITH MICROSCOPIC Lab Routine Recurrent UTI 5 Occurrences starting 02/02/2023 until 01/14/2024 [facility] Work Phone: Comment on above: 5 Occurrences starti ng 02/02/2023 until 01/14/2024 [facility] Immunizations Immunization Date Immunization Notes Care Provider Jens eid 12-01-2022 influenza, high dose seasonal, preservative-free Campbell Naranjo Other [employer] Other 12-19-2021 influenza virus vaccine, split virus (incl. purified surface antigen) Campbell Naranjo Other [employer] Other 12-10-2020 influenza virus vaccine, split virus (incl. purified surface antigen) Campbell Naranjo Other [employer] Other 01-09-2020 influenza virus vaccine, split virus (incl. purified surface antigen) Campbell Naranjo Other [employer] Other 01-14-2018 influenza virus vaccine, split virus (incl. purified surface antigen) Campbell Naranjo Other [employer] Other 12-30-2016 influenza virus vaccine, split virus (incl. purified surface antigen) Campbell Naranjo Other [employer] Other 03-16-2016 influenza virus vaccine, split virus (incl. purified surface antigen) Campbell Naranjo Other [employer] Other 05-01-2015 pneumococcal conjuga te vaccine, 13 valent Campbell Naranjo Other [employer] Other 05-01-2015 pneumococcal Conjuga te, unspecified formulation; Translations: [Need for prophylactic vaccination against Streptococcus pneumoniae (pneumococcus)] Campbell Naranjo Other [employer] Other 12-28-2012 tetanus and diphther ia toxoids, adsorbed, preservative free, for adult use (5 Lf of tetanus toxoid and 2 Lf of diphtheria toxoid) Campbell Naranjo Other [employer] Other 01-28-2012 diphtheria, tetanus toxoids and acellular pertussis vaccine, unspecified formulation Campbell Naranjo Other [employer] Other 01-20-2012 pneumococcal polysaccharide vaccine, 23 valent Campbell Naranjo Other [employer] Other 05-18-2011 pneumococcal polysaccharide vaccine, 23 valent Campbell Naranjo Other [employer] Other Payers Date Payer Category Payer Self-pay 2016 Unknown [employer] SUPPLEMENT [id number] 2016-Present [phone] [address] [place] [address] Indemnity [id number] 2003 Medicare MEDICARE MEDICAR E A AND B [id number] 2003-Present [phone] [address] [address] [place] [address] Medicare [id number] 1959 Medicare [id number] 1959 Medicare [id number] 1938 Unknown [id number] 3 1938 Unknown [id number] 3 1938 Unknown [id number] 3 1938 Unknown [id number] 3 1938 Unknown [id number] 3 1938 Unknown [id number] 3 1938 Unknown [id number] 3 1938 Unknown [id number] 3 Medicare Medicare Outpatient [id number] Unknown [facility] Insur [id number] Unknown [id number] 1 Social History Date Type Detail Facility Start: 10-24-2009 End: 12-16-2021 Tobacco smoking status NHIS Ex-smoker [facility] End: 03-15-1971 History of tobacco use Current smoker [facility] End: 03-15-1971 History of tobacco use Cigarette Smoker [facility] Start: 10-24-2009 End: 07-28-2022 Cigarettes smoked current (pack per day) - Reported 1.5 [facility] Start: 11-07-2021 End: 12-16-2021 Alcohol intake Current drinker of alcohol (finding) [facility] Start: 1940 Sex Assigned At Not on file C [facility] Start: 10-28-2021 End: 01-08-2022 Exposure to SARS-CoV-2 (event) Not sure [facility] Start: 12-11-2021 End: 12-17-2021 Tobacco smoking status NHIS Never smoked tobacco (finding) [facility] Start: 1940 Sex Assigned At Male F [facility] Start: 12-16-2021 Tobacco use and exposure Smokeless tobacco non-user [facility] Start: 12-16-2021 End: 07-28-2022 Sex Assigned At [facility] [employer] Other National Score (1-10 0), lower number is lower risk 61 [facility] Medical Equipment Procedure Code Equipment [...] to restart Amlodipine. Continue PAUL for now. [employer] Other 12-12-2023 Evaluation note* Encounter Date Diagnosis [...] and inserts to prevent callus formation.Fall precautions. [employer] Other 12-08-2023 Evaluation note* Encounter Date Diagnosis [...] ulcers. Recommend routine foot care w/ Podiatry [employer] Other 11-21-2023 NoteHNO ID: [id number] Author: Leticia Milian APRN.E COMMERCE ANALYST Service: ? Author Type: Nurse Practitioner Type: Progress Notes Filed: 02/02/2023 2:13 PM Note Text: Norberto Washington [address] [facility] [address] HISTORY OF PRESENT ILLNESS: Seen 07/28/22 for [...] see lab Duration: BPH w obs/luts, UTI [facility] SYMPTOMS SCORE. 1. INCOMPLETE EMPTYING [...] only if s (more content not included)... [facility]11-21-2023 Miscellaneous Notes* Addendum Note - Leticia Milian APRN.CNP - 02/02/2023 2:16 PM ESTAddended by: LETICIA MILIAN on: 02/02/2023 02:16 PM Modules accepted: Orders documented in this encounterK[facility]11-[facility] History of Present illness Narrative* Leticia Milian APRN.CNP - 02/02/2023 1:40 PM EST Norberto Washington [address] [facility] [address] HISTORY OF PRESENT ILLNESS: Seen 07/28/22 for [...] see lab Duration: BPH w obs/luts, UTI [facility] SYMPTOMS SCORE. 1. INCOMPLETE EMPTYING [...] Making Level: 4 - Moderate Leticia Milian APRN.E COMMERCE ANALYST documented in this encounterKet[facility]07-11-2023 Evaluation note* Encounter Date Diagnosis [...] w/ acute infection Requires no additional treatment [employer] Other 07-06-2023 Evaluation note* Encounter Date Diagnosis [...] exercise for 30 minutes, 3-5 times weekly. [employer] Other 05-16-2023 NoteHNO ID: [id number] Author: Leticia Milian APRN.E COMMERCE ANALYST Service: ? Author Type: Nurse Practitioner Type: Progress Notes Filed: 07/30/2022 4:34 PM Note Text: Norberto Washington [address] [facility] [address] HISTORY OF PRESENT ILLNESS: Seen 01/20/22 for [...] 07/20/22=neg UA 07/20/22=leuk esterase 250, wbc 11-25 [facility] SYMPTOMS SCORE. 1. INCOMPLETE EMPTYING [...] obs/luts, AUA, PVR Med (more content not included)...[facility]04-06-2023 Evaluation note* Encounter Date Diagnosis Assessment [...] w/ antibiotics and treatment of urinary retention [employer] Other 03-21-2023 NotePROCEDURE: XR FOOT LT MIN [...] Electronically authenticated by: SAMY TORRES Date: 2022-06-02 15:48[facility]03-21-2023 NotePROCEDURE: XR FOOT LT MIN 3 [...] Electronically authenticated by: SAMY TORRES Date: 2022-06-02 15:48[facility]01-25-2023 Evaluation note* Encounter Date Diagnosis Assessment [...] lesion was treated w/ cryotherapy w/o complications [employer] Other 01-06-2023 Evaluation note* Encounter Date Diagnosis [...] Mar, Hesitancy of micturition (ICD-10 - R39.11) [employer] Other 10-27-2022 History of Present illness Narrative* Zuleika Hackett - 01/08/2022 8:20 AM EDT Norberto Washington [address] [id number] Mr. Washington presents with chief complaints of: Enlarged L testicle. ED 11/07/21: PVR 179 cc, refused a catheter, scheduled to undergo a cystoscopy in [place] but was cancelled due to his urologist [...] epididymitis Hydroceles: None Spermatoceles: None Varicoceles: None [facility] SYMPTOMS SCORE. Date 01/08/2022 1. [...] complete. Leonard Dugan M.D. documented in this encounterKettering [facility]10-05-2022 Hospital Discharge instructions Additional Instructions Continue taking Flomax as prescribed Avoid drinking any fluids several hours before bed Call your urologist tomorrow for a follow-up appointment Return if you are unable to urinate, develop blood in your urine, abdominal pain, [facility] Work Phone: [phone] History of Present illness Narrative* Leonard Dugan MD - 12/16/2021 2:51 PM EDT Norberto Washington [address] [place] [id number] HISTORY OF PRESENT ILLNESS: ED 11/07/21: PVR 179 cc, refused a catheter, scheduled to undergo a cystoscopy in [place] but was cancelled due to his urologist [...] Otherwise, intermittent catheterization. Agreed indwelling catheter 18 zambian. Flomax will not work, no prostate tissue [...] Moderate Leonard Dugan MD documented in this encounterKet[facility]10-03-2022 Miscellaneous Notes* Telephone Encounter - Valente Bell LPN - 12/15/2021 3:58 PM EDT Called and spoke to patient regarding message below. Patient states understanding to information provided. No further action required at this time. * Telephone Encounter - Leticia Milian APRN.CNP - 12/15/2021 10:13 AM EDT Please call and confirm that pt received [employer] message to start new script sent for antibiotic. Thanks Leticia MONDRAGON documented in this encounterKettering [facility]09-29-2022 Miscellaneous Notes* Telephone Encounter - [...] be draining normally now. documented in this encounterKettering Health [facility]09-28-2022 Nurse Note* Stephanie Kaur RN [...] hyperplasia with urinary retention documented in this encounterKettering Health [facility]09-27-2022 History of Present illness Narrative* Leonard Dugan MD - 12/09/2021 5:05 PM EDT [facility] PHYSICIAN INTERPRETATION: Urodynamics [...] contractility Leonard Dugan MD documented in this encounterKettering Health [facility]09-27-2022 Nurse Note* Stephanie Kaur RN - 12/09/2021 3:57 PM EDT [facility] URODYNAMICS LAB URODYNAMIC [...] of incomplete bladder emptying documented in this encounterKettering Health [facility]09-26-2022 Miscellaneous Notes* Telephone Encounter - Stephanie Kaur RN - 12/08/2021 4:11 PM EDT LM for patient to reschedule catheter change for tomorrow. Last changed 11/26/21 in ED. Will be due for change on 12/23/21. Stephanie Kaur R.N. documented in this encounterKettering Health [facility]09-12-2022 Miscellaneous Notes* Telephone Encounter - [...] has been busy with his spouse at [facility] having to care for her needs and hadn't called earlier when it first started on Wednesday. He was hoping it would clear up but it has not, urine is between [place] tint & Brown and he does see small clots. Patient does have pain at the end of his Penis slight swelling noted (he has been applying Neosporin) Denies difficulty with urine draining into [place] bag, he does not have back pain Please advise documented in this encounterKettering Health [facility] Center08-31-2022 Nurse Note* Stephanie Kaur RN [...] Education Session: None Instruction Provided To: Patient Land Clearer Present: not applicable Discipline: Nursing Learning Topic: [...] of Dr. Dugan, under his supervision. Stephanie aKur RN documented in this encounterKettering Health [facility] Center08-31-2022 Procedure note* Leonard Dugan MD - 11/12/2021 11:00 AM EDTProcedure(s): CYSTOSCOPY Pre-Procedure Diagnose(s): BPH with obstruction/lower urinary tract symptoms Post-Procedure Diagnose(s): BPH with obstruction/lower urinary tract symptoms PROCEDURE: CYSTOSCOPY INDICATIONS: ED 11/07/21: PVR 179 cc, refused a catheter, scheduled to undergo a cystoscopy in [place] but was cancelled due to his urologist [...] Otherwise, intermittent catheterization. Agreed indwelling catheter 18 zambian. By signing my name below, I, Zuleika [...] complete. Leonard Dugan M.D. documented in this encounterKettering Health [facility]08-29-2022 History of Present illness Narrative* Leonard Dugan MD - 11/10/2021 12:11 PM EDT Cysto with uroflow 11-12-21 ED 11/07/21: PVR 179 cc, refused a catheter, scheduled to undergo a cystoscopy in [place] but was cancelled due to his urologist was sick Pt underwent TURP x2 within a week AUA= 3-5 wach ROSAMARIA 11/10/21 - 10 gm, rubbery, no nodules US 11/07/21:= mildly complex renal cysts UA and culture 11-07-21= -ve May need UDS based on cysto [facility]Reg[facility]* Diagnosis BPH with obstruction/lower urinary tract symptoms- Primary Hypertrophy of prostate with urinary obstruction and other lower urinary tract symptoms (LUTS) Benign prostatic hyperplasia with urinary retention documented in this encounter [facility]* Diagnosis Urinary frequency- Primary Urinary urgency Urgency of urination Urinary straining Straining on urination Feeling of incomplete bladder emptying Incomplete bladder emptying documented in this encounter [facility]* Diagnosis Urinary tract infection without hematuria, site unspecified- Primary Feeling of incomplete bladder emptying Incomplete bladder emptying Benign prostatic hyperplasia with urinary retention documented in this encounter [facility] noteNo assessment information availableJoint Township District [facility] Work Phone: Evaluation note* Diagnosis Retention of urine- Primary Retention of urine, unspecified Flaccid bladder Neurogenic bladder, NOS documented in this encounter [facility]* Diagnosis Chronic epididymitis- Primary Left hydrocele Hydrocele, unspecified Weak urinary stream Slowing of urinary stream BPH without obstruction/lower urinary tract symptoms Hypertrophy of prostate without urinary obstruction and other lower urinary tract symptoms (LUTS) Epididymitis Orchitis and epididymitis, unspecified documented in this encounter [facility] CenterEvaluation noteNo InformationNortMercy [facility] [employer] Other Evaluation note* Diagnosis BPH with obstruction/lower urinary tract symptoms- Primary Hypertrophy of prostate with urinary obstruction and other lower urinary tract symptoms (LUTS) Recurrent UTI Urinary tract infection, site not specified Weak urinary stream Slowing of urinary stream documented in this encounter [facility] general Narrative - Reported* Type Description Date [...] 09.20.2019 Hospitalization History see surgical history [facility] [employer] Other Reason for referral (narrative)* Outpatient Procedure (Routine) - Pending Review Specialty Diagnoses / Procedures Referred By Marce dillon Referred To Contact [facility] Diagnoses 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 [address] [place] [address] Referral ID Status Reason Start Date Expiration Date Visits Requested Visits Authorized [id number] Pending Review Auto-Generat ed Referral 11/12/2021 11/12/2022 1 1 [facility] Summary Purpose Family History No [...] right foot (M20.41) Referral Organization [facility] Medical tram Referring Provider First Name Campbell Referring Provider Last Name Quentin Referring Provider Specialty Internal Me dicine Referred Organization [facility] Referred Provider Jhon Tejada Referred Address [address], [place],[address] Referred Provider Specialty Podiatry - S urgical [...] and content) DATE CREATED AUTHOR 11/04/2021 [facility] DATE CREATED AUTHOR AUTHOR'S ORGANIZ ATION 12/13/2021 [facility] DATE CREATED AUTHOR AUTHOR'S ORGANIZ ATION 06/25/2022 [facility] DATE CREATED AUTHOR AUTHOR'S ORGANIZ ATION 01/14/2023 [facility] DATE CREATED AUTHOR AUTHOR'S ORGANIZ ATION 02/04/2023 [facility] Source Comments (unrecognize d section and content) In the event this informatio n is protected by the Federal Confidentiality of Alcohol and Drug Abuse Patient Records regulations: The Federal rules restrict any use of the information to criminally investigate or prosecute any alcohol or drug abuse patient.[facility] CenterIn the event this information is protected by the Federal Confidentiality of Alcohol and Drug Abuse Patient Records regulations: The Federal rules restrict any use of the information to criminally investigate or prosecute any alcohol or drug abuse patient.[facility] CenterIn the event this information is protected by the Federal Confidentiality of Alcohol and Drug Abuse Patient Records regulations: The Federal rules restrict any use of the information to criminally investigate or prosecute any alcohol or drug abuse patient.[facility] CenterIn the event this information is protected by the Federal Confidentiality of Alcohol and Drug Abuse Patient Records regulations: The Federal rules restrict any use of the information to criminally investigate or prosecute any alcohol or drug abuse patient.[facility] CenterIn the event this information is protected by the Federal Confidentiality of Alcohol and Drug Abuse Patient Records regulations: The Federal rules restrict any use of the information to criminally investigate or prosecute any alcohol or drug abuse patient.[facility] CenterIn the event this information is protected by the Federal Confidentiality of Alcohol and Drug Abuse Patient Records regulations: The Federal rules restrict any use of the information to criminally investigate or prosecute any alcohol or drug abuse patient.[facility] CenterIn the event this information is protected by the Federal Confidentiality of Alcohol and Drug Abuse Patient Records regulations: The Federal rules restrict any use of the information to criminally investigate or prosecute any alcohol or drug abuse patient.[facility] CenterIn the event this information is protected by the Federal Confidentiality of Alcohol and Drug Abuse Patient Records regulations: The Federal rules restrict any use of the information to criminally investigate or prosecute any alcohol or drug abuse patient.[facility] CenterIn the event this information is protected by the Federal Confidentiality of Alcohol and Drug Abuse Patient Records regulations: The Federal rules restrict any use of the information to criminally investigate or prosecute any alcohol or drug abuse patient.[facility] CenterIn the event this information is protected by the Federal Confidentiality of Alcohol and Drug Abuse Patient Records regulations: The Federal rules restrict any use of the information to criminally investigate or prosecute any alcohol or drug abuse patient.[facility] CenterIn the event this information is [...] or prosecute any alcohol or drug abuse patient.[facility] Care Teams (unrecognized sec tion and content) Team Status: Active Member Role Status Dates Campbell Naranjo , Primary Care Provider Active Team Status: Inactive Member Role Status Dates Campbell Naranjo , Primary Care Provider Active Low Carter DO Emergency Provider Active Head Waiter/Waitress Banquet Relationship Specialty Start Date End Date Ran Lees Jr. PCP - General 10/10/09 Head Waiter/Waitress Banquet Relationship Specialty Start Date End Date Ran Lees Jr. PCP - General 10/10/09 Head Waiter/Waitress Banquet Relationship Specialty Start Date End Date Ran Lees Jr. PCP - General 10/10/09 Head Waiter/Waitress Banquet Relationship Specialty Start Date End Date Campbell Naranjo [place], DO [address] [facility] [place] [address] PCP - General Internal Medicine 11/26/21 Head Waiter/Waitress Banquet Relationship Specialty Start Date End Date Campbell Naranjo, DO [address] [place] [place] [address] PCP - General Internal Medicine 11/26/21 Head Waiter/Waitress Banquet Relationship Specialty Start Date End Date Campbell Naranjo, DO [address] [place] [address] PCP - General Internal Medicine 11/26/21 Head Waiter/Waitress Banquet Relationship Specialty Start Date End Date Campbell Naranjo [place], DO [address] [place] [address] PCP - General Internal Medicine 11/26/21 Team Status: Inactive Member Role Status Dates Campbell Naranjo DO Primary Care Provider Active Davis Cervantes MD Emergency Provider Active Head Waiter/Waitress Banquet Relationship Specialty Start Date End Date Campbell Naranjo, DO [address] [place] [facility] [place] [address] PCP - General Internal Medicine 11/26/21 Team Status: Inactive Member Role Status Dates Campbell Naranjo , Primary Care Provider Active Sam Simons , Emergency Provider Active Team Status: Inactive Member Role Status Dates Campbell Naranjo , DO Primary Care Provider Active Sam Simons , DO Attending Provider Active Head Waiter/Waitress Banquet Relationship Specialty Start Date End Date Campbell Naranjo, DO [address] [place] [address] PCP - General Internal Medicine 11/26/21 Head Waiter/Waitress Banquet Relationship Specialty Start Date End Date Campbell Naranjo, DO [address] [place] [facility] [place] [address] PCP - General Internal Medicine 11/26/21 Head Waiter/Waitress Banquet Relationship Specialty Start Date End Date Campbell Naranjo, DO [address] [place] [address] PCP - General Internal Medicine 11/26/21 Reason [...] BE BASED ON THE PRIMARY CLINICAL RECORDS. [facility]. provides no warranty or guarantee of the accuracy or completeness of information in this document.
== END 2023-04-23 11:49 | disposition home or self-care (01) ==
LOC: WC 11:50
PROVIDERS: PCP Internal Medicine; Visit Provider Podiatrist Foot & Ankle Surgery
DX: E11.621 Type 2 diabetes mellitus with foot ulcer (principal); L97.512 Non-pressure chronic ulcer of other part of right foot with fat layer exposed; L97.515 Non-pressure chronic ulcer of other part of right foot with muscle involvement without evidence of necrosis
CPT/HCPCS: 11042

== ENCOUNTER 2023-05-11 13:59 | Outpatient (OUT) | payer MEDICARE, SELFPAY | END 2023-05-11 14:00 | disposition home or self-care (01) | LOC: WC 13:59 | PROVIDERS: PCP Internal Medicine; Visit Provider Podiatrist Foot & Ankle Surgery | DX: E11.621 Type 2 diabetes mellitus with foot ulcer (principal); L97.515 Non-pressure chronic ulcer of other part of right foot with muscle involvement without evidence of necrosis; L97.518 Non-pressure chronic ulcer of other part of right foot with other specified severity | CPT/HCPCS: 11042 ==

== ENCOUNTER 2023-05-12 07:24 | Outpatient (RCR) | payer MEDICARE, SELFPAY ==
[2023-04-26 12:52] VITALS: BP 143/58; PULSE 80; RESP 16; TEMP 35.9; O2SAT 99
[2023-04-26] MEDS: CEFTAZIDIME 2,000 MG in 0.9 % SODIUM CHLORIDE 100 ML 200 MG IV (14:07)
[2023-04-26 14:39] VITALS: TEMP 35.9
[2023-04-26] MEDS: VANCOMYCIN HCL 1,500 MG in 0.9 % SODIUM CHLORIDE 500 ML 250 MG IV (14:39)
[2023-04-26 14:57] LABS: Anion Gap 13.4; BUN Creatinine Ratio 18.4; Calcium 8.6 mg/dL (8.5-10.1); Carbon Dioxide 27.2 mmol/L (21.0-32.0); Chloride 97 mmol/L (98-107); Estimated GFR (African America >60 (>=60); Estimated GFR (Non-African Ame >60 (>=60); Glucose 154 mg/dL (74-106); Potassium 4.6 mmol/L (3.5-5.1); Sodium 133 mmol/L (136-145)
[2023-04-26 14:59] LABS: C Reactive Protein <0.50 mg/dL (<=0.50)
--- NOTE | 2023-04-26 16:11 | PC.NURSE ---
Patient is here for PICC line placement, store keeper came in and placed a double lumen into his right upper arm. Patient is receiving vancomycin and fortaz. Patient was provided with PICC education and denies any questions at this time. He was provided with his schedule for antibiotics and all questions were answered. He denies any complaints at this time.
[2023-04-27] MEDS: VANCOMYCIN HCL 1,500 MG in 0.9 % SODIUM CHLORIDE 500 ML 250 MG IV (08:21)
[2023-04-27] MEDS: CEFTAZIDIME 2,000 MG in 0.9 % SODIUM CHLORIDE 100 ML 200 MG IV ×2 (08:24→20:34)
[2023-04-27 08:37] VITALS: BP 138/62; PULSE 62; RESP 20; TEMP 36.6; O2SAT 99
[2023-04-27 20:12] VITALS: BP 145/82; PULSE 77; RESP 15; TEMP 36.1; O2SAT 98
[2023-04-28] MEDS: VANCOMYCIN HCL 1,500 MG in 0.9 % SODIUM CHLORIDE 500 ML 250 MG IV (08:07)
[2023-04-28] MEDS: CEFTAZIDIME 2,000 MG in 0.9 % SODIUM CHLORIDE 100 ML 200 MG IV ×2 (08:08→20:00)
[2023-04-28 08:15] VITALS: BP 177/61; PULSE 77; RESP 18; TEMP 36.2; O2SAT 98
--- NOTE | 2023-04-28 08:17 | PC.NURSE ---
0755 Arrival ambulatory to chair 3. alert oriented. VS obtained. PICC intact rt upper arm, site clear. excellent blood return noted 0800 IV antibiotics initiated. 0820 reclining in recliner, reading book, drink provided.
[2023-04-28 10:21] VITALS: BP 174/85
--- NOTE | 2023-04-28 10:21 | PC.NURSE ---
1010 IV vancomycin infused, flushed PICC with 20 ml of NSS. Released ambulatory.
[2023-04-29] MEDS: VANCOMYCIN HCL 1,500 MG in 0.9 % SODIUM CHLORIDE 500 ML 250 MG IV (08:07)
[2023-04-29] MEDS: CEFTAZIDIME 2,000 MG in 0.9 % SODIUM CHLORIDE 100 ML 200 MG IV ×2 (08:07→20:02)
[2023-04-29 08:18] VITALS: BP 173/78; PULSE 78; RESP 18; TEMP 36.1; O2SAT 97
--- NOTE | 2023-04-29 08:20 | PC.NURSE ---
0753: Pt. to [facility] amb. for daily antibiotic therapy. Seated in recliner. VSS. Denies c/o pain, n/v or dyspnea. Existing PICC line in place to right upper arm and without s&s of infection. Able to aspirate blood and flush with saline easily. 0807: IV Vancomycin and Fortaz initiated at this time. Pt. given coffee. Denies further needs.
--- NOTE | 2023-04-29 08:30 | PC.NURSE ---
0833: Pt. tolerating infusion without c/o. Denies needs or c/o.
--- NOTE | 2023-04-29 09:09 | PC.NURSE ---
1007: IV Vancomycin completed at this time. Pt. tolerated without s&s of adverse reaction. PICC line flushed with saline. 1011: Pt. d/c'd amb. to home.
--- NOTE | 2023-04-29 20:41 | PC.NURSE ---
Patient advised to return 8am tomorrow for blood draw.
[2023-04-30] MEDS: CEFTAZIDIME 2,000 MG in 0.9 % SODIUM CHLORIDE 100 ML 200 MG IV ×2 (08:14→20:13)
[2023-04-30] MEDS: VANCOMYCIN HCL 1,500 MG in 0.9 % SODIUM CHLORIDE 500 ML 250 MG IV (08:15)
[2023-04-30 08:33] VITALS: BP 162/75; PULSE 74; RESP 18; TEMP 36.6; O2SAT 98
[2023-04-30 08:40] LABS: Anion Gap 10.4; BUN Creatinine Ratio 18.9; Calcium 8.7 mg/dL (8.5-10.1); Carbon Dioxide 29.2 mmol/L (21.0-32.0); Chloride 101 mmol/L (98-107); Estimated GFR (African America >60 (>=60); Estimated GFR (Non-African Ame >60 (>=60); Glucose 93 mg/dL (74-106); Potassium 4.6 mmol/L (3.5-5.1); Sodium 136 mmol/L (136-145)
--- NOTE | 2023-04-30 08:53 | PC.NURSE ---
0755: Pt. to [facility] amb. for daily antibiotic therapy. Seated in recliner. VSS. PICC line to right upper arm in place and without s&s of infection or infiltration. Able to aspirate blood easily from both ports. Blood drawn and sent to lab for Vanco trough and creatinine. Pt. given coffee. Denies needs.
--- NOTE | 2023-04-30 08:56 | PC.NURSE ---
0814: IV Vanco and Fortaz initiated at this time. 0845: Fortaz complted without s&s of adverse reaction.
--- NOTE | 2023-04-30 10:40 | PC.NURSE ---
1020: IV Vanco completed at this time without adverse reaction. PICC line flushed with saline. 1025: Pt. d/c'd amb. to home
[2023-04-30 20:10] VITALS: BP 156/80; PULSE 79; RESP 16; TEMP 36.5; O2SAT 97
[2023-04-30 20:45] VITALS: BP 163/78; PULSE 78; RESP 15; TEMP 36.6; O2SAT 97
[2023-05-01] MEDS: CEFTAZIDIME 2,000 MG in 0.9 % SODIUM CHLORIDE 100 ML 200 MG IV ×2 (08:03→20:00)
[2023-05-01] MEDS: VANCOMYCIN HCL 1,500 MG in 0.9 % SODIUM CHLORIDE 500 ML 250 MG IV (08:07)
[2023-05-01 10:10] VITALS: BP 165/83; PULSE 70; RESP 16; TEMP 36.6; O2SAT 100
[2023-05-01 20:06] VITALS: BP 198/85; PULSE 89; RESP 16; TEMP 36.4; O2SAT 97
[2023-05-01 20:19] VITALS: BP 191/85
[2023-05-02] MEDS: VANCOMYCIN HCL 1,500 MG in 0.9 % SODIUM CHLORIDE 500 ML 250 MG IV (08:01)
[2023-05-02] MEDS: CEFTAZIDIME 2,000 MG in 0.9 % SODIUM CHLORIDE 100 ML 200 MG IV ×2 (08:01→20:07)
[2023-05-02 08:08] VITALS: BP 157/76; PULSE 74; RESP 18; TEMP 36.7; O2SAT 95
--- NOTE | 2023-05-02 20:00 | PC.NURSE ---
Pt amb to room 232 for OP IV ATB. port being used checked for blood return, flushed then ATB started. VS taken and pt states that he took his BP prior to coming and was elevated so took the other 1/2 meds as his FMD told him to. Pt states that his blood pressure has been elevated for about a week (since started the IV ATB) Pt states that his family Dr was even contacted about the BP Pressure was 187/84 in the lt upper arm. Pt states that he is just very upset/angry over having to come in for the medication. Pt states that the swelling of his foot and sore has improved. Pt states that he has to do the ATB for 2 weeks. Pt states that he has been taking care of his and was ignoring himself,not realizing that he had a sore on his foot. Pt allowed to vent and reassurance given. ATB infusing and pt sitting an a recliner reading. Call light in reach.
[2023-05-02 20:05] VITALS: BP 187/84; PULSE 76; RESP 18; TEMP 36.3; O2SAT 98
[2023-05-02 20:40] VITALS: BP 171/78; PULSE 71; RESP 18; O2SAT 98
--- NOTE | 2023-05-02 20:40 | PC.NURSE ---
ATB infused. Both ports checked for blood return,flushed and new orange caps applied. Asked pt when he is to see Dr Naranjo for a recheck and pt states he was not sure but wont be surprised if he calls me tomorrow . Discuss symptoms to watch for with high blood pressure like headaches etc or if not feeling well,to call Dr Naranjo or go to the Er. Pt amb to car to go home.
[2023-05-03] MEDS: VANCOMYCIN HCL 1,500 MG in 0.9 % SODIUM CHLORIDE 500 ML 250 MG IV (08:09)
[2023-05-03] MEDS: CEFTAZIDIME 2,000 MG in 0.9 % SODIUM CHLORIDE 100 ML 200 MG IV ×2 (08:09→19:54)
[2023-05-03 08:41] LABS: Anion Gap 12.5; BUN Creatinine Ratio 17.9; Calcium 8.5 mg/dL (8.5-10.1); Carbon Dioxide 27.6 mmol/L (21.0-32.0); Chloride 100 mmol/L (98-107); Estimated GFR (African America >60 (>=60); Estimated GFR (Non-African Ame >60 (>=60); Glucose 135 mg/dL (74-106); Potassium 4.1 mmol/L (3.5-5.1); Sodium 136 mmol/L (136-145)
[2023-05-03 08:42] LABS: C Reactive Protein <0.50 mg/dL (<=0.50)
[2023-05-03 08:45] VITALS: BP 170/69; PULSE 77; RESP 18; TEMP 36.6; O2SAT 97
--- NOTE | 2023-05-03 09:28 | PC.NURSE ---
0755: Pt. to [facility] amb. Seated in recliner. VSS. Denies c/o pain, n/v or dyspnea. PICC line in place to right upper arm. Site without redness or edema. Flushes easily with good blood return. Blood obtained and sent to lab as ordered. 0809: IV Vancomycin and IV Fortaz initiated at this time. Pt. given coffee. Denies needs. 0815: Using sterile technique, dressing to PICC line changed. Sterile CHG dressing applied. No drainage or redness to site. Pt. tolerated without c/o.
--- NOTE | 2023-05-03 10:19 | PC.NURSE ---
0840: IV Nicol completed. Pt. without c/o. Drinking coffee. 0930: Pt. without needs or c/o. IV Verao cont. to infuse without difficulty
--- NOTE | 2023-05-03 10:21 | PC.NURSE ---
1015: IV Vancomycin completed at this time. Caps changed on PICC line. Flushed with saline. Pt. tolerated without c/o. 1017: Pt. d/c'd amb. to home.
[2023-05-03 19:58] VITALS: BP 193/98; PULSE 77; O2SAT 97
[2023-05-03 20:30] VITALS: BP 171/91
[2023-05-04 08:10] VITALS: BP 130/78; PULSE 68; RESP 16; TEMP 37; O2SAT 96
[2023-05-04] MEDS: VANCOMYCIN HCL 1,500 MG in 0.9 % SODIUM CHLORIDE 500 ML 250 MG IV (08:14)
[2023-05-04] MEDS: CEFTAZIDIME 2,000 MG in 0.9 % SODIUM CHLORIDE 100 ML 200 MG IV ×2 (08:26→20:19)
[2023-05-04 20:12] VITALS: BP 172/82; PULSE 75; RESP 16; TEMP 36.7; O2SAT 98
[2023-05-04 21:02] VITALS: BP 174/87; PULSE 80; RESP 16; O2SAT 98
[2023-05-05] MEDS: VANCOMYCIN HCL 1,500 MG in 0.9 % SODIUM CHLORIDE 500 ML 250 MG IV (07:56)
[2023-05-05] MEDS: CEFTAZIDIME 2,000 MG in 0.9 % SODIUM CHLORIDE 100 ML 200 MG IV ×2 (07:57→19:58)
[2023-05-05 08:23] VITALS: BP 170/66; PULSE 81; RESP 18; TEMP 35.9; O2SAT 98
--- NOTE | 2023-05-05 08:24 | PC.NURSE ---
0750: Pt. to [facility] amb. for daily antibiotic therapy. Seated in recliner. VSS. PICC line to right upper arm intact and without s&s of infection. Flushes easily with good blood return. IV antibiotics initiated. See MAY. Pt. given coffee. Denies needs. 0826: Pt. without change. Denies needs.
--- NOTE | 2023-05-05 10:11 | PC.NURSE ---
1000: IV Vancomycin completed at this time without s&s of adverse reaction. PICC line flushed with saline. Pt. d/c'd amb. to home per self
[2023-05-05 20:00] VITALS: BP 172/85; PULSE 60; RESP 16; TEMP 36.7; O2SAT 99
[2023-05-06 07:53] VITALS: TEMP 36.4
[2023-05-06] MEDS: VANCOMYCIN HCL 1,500 MG in 0.9 % SODIUM CHLORIDE 500 ML 250 MG IV (07:53)
[2023-05-06] MEDS: CEFTAZIDIME 2,000 MG in 0.9 % SODIUM CHLORIDE 100 ML 200 MG IV ×2 (07:54→19:56)
--- NOTE | 2023-05-06 08:12 | PC.NURSE ---
0750: Pt. to [facility] amb. for daily antibiotic. Seated in recliner. VSS. PICC line to right upper arm in place and without s&s of infection. Flushes easily with good blood return. IV Vancomycin and Fortaz initiated at this time. Pt. given coffee. Denies further needs or c/o.
[2023-05-06 08:59] VITALS: BP 160/74; PULSE 77; RESP 16; TEMP 36.3; O2SAT 98
--- NOTE | 2023-05-06 09:02 | PC.NURSE ---
0900: Pt. without c/o or needs.
--- NOTE | 2023-05-06 10:04 | PC.NURSE ---
1000: IV antibiotics completed at this time. PICC lines flushed with saline. D/c'd amb. to home.
[2023-05-06 19:59] VITALS: BP 174/73; RESP 18; TEMP 36.5; O2SAT 98
[2023-05-07 07:58] VITALS: TEMP 36.9
[2023-05-07] MEDS: VANCOMYCIN HCL 1,500 MG in 0.9 % SODIUM CHLORIDE 500 ML 250 MG IV (07:58)
[2023-05-07] MEDS: CEFTAZIDIME 2,000 MG in 0.9 % SODIUM CHLORIDE 100 ML 200 MG IV ×2 (07:58→20:08)
[2023-05-07 08:15] VITALS: BP 150/71; PULSE 77; RESP 18; TEMP 36.9
--- NOTE | 2023-05-07 08:19 | PC.NURSE ---
0755 Arrival ambulatory. Alert oriented, picc intact left upper arm. site clear dressing intact. excellent blood return, flushes easily. 0800 IV antibiotics initiated.
--- NOTE | 2023-05-07 09:17 | PC.NURSE ---
0915 Discussed with patient, last day of ATB is , orders to pull PICC after IV ATB are completed, patient states he has appt with Dr. Tejada on 05/11 and request to see him before discontinuing PICC line. Patient will discuss this with Dr. Naranjo and Dr. Tejada.
[2023-05-07 20:00] VITALS: BP 190/87; PULSE 75; RESP 18; TEMP 36.9; O2SAT 97
--- NOTE | 2023-05-07 20:56 | PC.NURSE ---
Patient states his blood pressure has been elevated ever since he started the Antibiotic therapy. Patient took his blood pressure at home at 1800 190/100. He stated he took a.m. dose of Lisinopril 20mg and another 10mg Lisinopril at 1800 tonight. His bp upon arrival is 190/80. We notified the Patient's On-Call Doctor. Dr. Brumfield called and recommending Patient take his Amlodipine when he gets home. The Patient was told to stop taking d/t patient's bp dropped while on Amlodipine. Patient states he doesn't have any more Amlodipine left at home. Dr. Brumfield is calling in a Rx for the Patient of 5mg Amlodipine to [facility].
[2023-05-07 21:20] VITALS: BP 175/90; PULSE 78; RESP 16; TEMP 36.8; O2SAT 98
[2023-05-07 21:22] VITALS: BP 175/94
[2023-05-07] MEDS: AMLODIPINE BESYLATE 5 MG TABLET PO (21:22)
--- NOTE | 2023-05-07 21:27 | PC.NURSE ---
Patient took 5mg Amlodipine at 2120 and left. I told him to call his Physician in the a.m. and follow up with him. I told him if he has any symptoms of chest pain,SOB or dizziness to seek medical help immediately.Patient A&Ox4, steady. Patient denies any chest pain,sob, or any other issues at this time.
[2023-05-08] MEDS: VANCOMYCIN HCL 1,500 MG in 0.9 % SODIUM CHLORIDE 500 ML 250 MG IV (08:01)
[2023-05-08] MEDS: CEFTAZIDIME 2,000 MG in 0.9 % SODIUM CHLORIDE 100 ML 200 MG IV ×2 (08:01→20:02)
[2023-05-08 08:04] VITALS: BP 148/58; PULSE 75; RESP 20
[2023-05-08 20:00] VITALS: BP 184/104; PULSE 79; RESP 16; TEMP 36.9; O2SAT 98
[2023-05-09] MEDS: CEFTAZIDIME 2,000 MG in 0.9 % SODIUM CHLORIDE 100 ML 200 MG IV ×2 (07:56→20:01)
[2023-05-09] MEDS: VANCOMYCIN HCL 1,500 MG in 0.9 % SODIUM CHLORIDE 500 ML 250 MG IV (07:56)
[2023-05-09 07:58] VITALS: BP 179/80; PULSE 83; RESP 14; TEMP 36.2; O2SAT 98
[2023-05-09 19:57] VITALS: BP 168/79; PULSE 75; RESP 16; TEMP 36.5; O2SAT 98
[2023-05-10] MEDS: CEFTAZIDIME 2,000 MG in 0.9 % SODIUM CHLORIDE 100 ML 200 MG IV (07:53)
[2023-05-10] MEDS: VANCOMYCIN HCL 1,500 MG in 0.9 % SODIUM CHLORIDE 500 ML 70 MG IV (07:53)
[2023-05-10 08:06] VITALS: BP 148/75; PULSE 78; RESP 18; TEMP 36.4; O2SAT 97
--- NOTE | 2023-05-12 08:00 | PC.NURSE ---
0745 Arrival ambulatory to chair 1. alert and oriented. PICC rt upper arm, dc'd while patient does valsalva. direct pressure held x 5 mins, followed by 4x4 and biocculsive dressing. total catheter length 46 cm. patient tolerated procedure well.0800 released ambulatory.
== END 2023-05-13 23:59 | disposition home or self-care (01) ==
LOC: INF 07:24
PROVIDERS: PCP Internal Medicine; Visit Provider Internal Medicine
DX: E11.621 Type 2 diabetes mellitus with foot ulcer (principal); L97.509 Non-pressure chronic ulcer of other part of unspecified foot with unspecified severity; L03.119 Cellulitis of unspecified part of limb
CPT/HCPCS: 36569; 36592; 80048; 80202; 82565; 86140; 96360; 96365; 96366; 96368; C1887; J3370

== ENCOUNTER 2023-05-31 14:22 | Outpatient (OUT) | payer MEDICARE, SELFPAY | END 2023-05-31 14:23 | disposition home or self-care (01) | LOC: WC 14:22 | PROVIDERS: PCP Internal Medicine; Visit Provider Physician Assistant | DX: E11.621 Type 2 diabetes mellitus with foot ulcer (principal); L97.518 Non-pressure chronic ulcer of other part of right foot with other specified severity | CPT/HCPCS: 11042 ==

== ENCOUNTER 2023-06-02 10:24 | Outpatient (OUT) | payer MEDICARE, SELFPAY | END 2023-06-02 10:25 | disposition home or self-care (01) | LOC: WC 10:24 | PROVIDERS: PCP Internal Medicine; Visit Provider Podiatrist Foot & Ankle Surgery | DX: E11.621 Type 2 diabetes mellitus with foot ulcer (principal); L97.518 Non-pressure chronic ulcer of other part of right foot with other specified severity | CPT/HCPCS: G0463 ==

== ENCOUNTER 2023-06-18 11:58 | Outpatient (OUT) | payer MEDICARE, SELFPAY ==
--- OUTSIDE RECORDS SUMMARY | 2023-06-18 12:18 | XMS_ITS | CCD ---
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 Primary Care Provider Unava ilable RAN LEES JR Primary Care Unavailable KEELY GUTIERREZ Attending Unavailable CAMPBELL NARANJO Primary Care Unavailable Campbell Naranjo DO Primary Care Provider DO Campbell Naranjo Primary Care Provider MD Davis Cervantes Emergency Provider DO Sam Simons Emergency Provider DO Sam Simons Attending Provider Campbell Naranjo Unavailable DR CAMPBELL NARANJO Primary Care Unavailable BALL, DR SHERMAN Consulting Unavailable BALL, [...] BALL, DR SHERMAN Primary Care Unavailable RANDALLLEIDY Consulting Unavailable BAPTISTE, DR ROBIN Duncan Admitting Unavailable BAPTISTE, DR ROBIN Duncan Attending Unavailable BAPTISTE, DR ROBIN Duncan Consulting Unavailable BALL, DR SHERMAN Primary Care Unavailable QUENTIN, DR SHERMAN Admitting Unavailable BALL, DR SHERMAN Attending Unavailable BALL, DR SHERMAN Consulting Unavailable QUENTIN, DR SHERMAN Primary Care Unavailable MELISSA, DR SAMY Nieves Consulting Unavailable QUENTIN, DR SHERMAN Admitting Unavailable BALL, DR SHERMAN Attending Unavailable BALL, DR SHERMAN Consulting Unavailable BALL, DR SHERMAN Primary Care Unavailable QUENTIN, DR SHERMAN Admitting Unavailable BALL, DR SHERMAN Attending Unavailable BALL, DR SHERMAN Consulting Unavailable QUENTIN, DR SHERMAN Primary Care Unavailable Cornell Baptiste Unavailable DO Campbell Naranjo Primary Care Provider DO Low Carter Emergency Provider [phone] Campbell Naranjo DO Primary Care Provider LETICIA MILIAN Attending Unavailable CAMPBELL NARANJO Primary Care Unavailable LETICIA MILIAN Referring Unavailable CAMPBELL NARANJO Primary Care Unavailable LETICIA MILIAN Attending Unavailable LETICIA MILIAN Referring Unavailable CAMPBELL NARANJO Primary Care Unavailable LETICIA MILIAN Referring Unavailable CAMPBELL NARANJO Primary Care Unavailable Campbell Naranjo Primary Care Unavailable Low Carter Admitting Unavailable Low Carter Attending Unavailable Low Carter Attending Unavailable Campbell Naranjo Primary Care Unavailable Low Carter Admitting Unavailable Allergies Allergy Classification Reported Allergen(s) Allergy Type Date of Onset Reaction(s) Facility (20 sources) Ciprofloxacin; Translations: [CIPROFLOXACIN] Drug Allergy 08-01-19 10 GI Upset, [facility] (20 sources) Sulfonamides (Antibiotic); Translations: [SULFA (SULFONAMIDE ANTIBIOTICS)] Propensity to adverse reactions 08-01-19 10 Rash, [facility] (1 source) Ciprofloxacin Drug Allergy [facility] (1 source) Sulfonamides (Antibiotic) Drug allergy (disorder) [facility] (1 source) Allergies Reconciled Propensity to adverse reactions Unknown MD Lingo Other (1 source) patient allergy list reviewed by nurse or physicia Propensity to adverse reactions 05-20-19 18 Comment:Done MD [facility]ingo Other (1 source) Ciprofloxacin Drug Allergy 05-21-19 [facility] (1 source) Sulfonamides (Antibiotic) Drug allergy (disorder) 05-21-19 [facility] Medications Current Medications Medication Drug Class(es) [...] on above: Take 1 capsule by mo [facility] twice daily. Take 1 capsule by mo [facility] three times daily for 3 days. Start evening prior procedure diclofenac 18 mg oral capsule (19 sources) Nonsteroidal Anti-inflammatory Drug take 1 capsule by mouth three times daily econazole nitrate 10 mg/ml topical cream (19 sources) Azole Antifungal glipiZIDE er 2.5 mg [...] mouth once daily. Glucosamine 1500 Complex - (19 sources) Glucosamine 1500 Complex - as directed [...] one(1) tablet d aily. MSM 1500 MG (19 sources) MSM 1500 MG as d irected Orally Active Multi For Him - (4 sources) Multi For Him - as directed [...] on above: Take 1 capsule by [facility] once daily. Take one cap. daily trimethoprim 100 mg oral tablet (5 sources) Dihydrofolate Reductase Inhibitor Antibacterial Start: 2 End: 2 take 100 mg by mouth twice daily Trimethoprim Active 100 MG PO Twice daily December 17, 2021 12:00am Comment on above: Take 1 tablet by marisela th twice daily for 5 days. Turmeric-Yulisa 150-25 MG (4 sources) Turmeric-Yulisa 150-25 MG as directed Orally Active Completed/Discontinued Medications Medication Drug Class(es) Dates Sig (Normalized) Sig (Original) 8 hr acetaminophen 650 mg extended release oral tablet (19 sources) take 1 tablet by mouth every [...] 2021 12:00am azithromycin 250 mg oral tablet (11 sources) Macrolide Antimicrobial Start: 09-22-2022 Azithromycin 250 MG as directed Orally daily for 5 days Sep, Not-Taking/PRN betamethasone 0.5 mg/ml / clotrimazole 10 mg/ml topical cream (19 sources) Azole Antifungal, Corticosteroid Clotrimazole-Betamet has one [...] Date Documented Date Episodic/Chronic Acquired foot deformities (20 sources) Hammer toe; Translations: [Other hammer toe(s) (acquired), left foot] Chronic Acquired foot deformities (10 sources) Hammer toe; Translations: [Other hammer toe(s) (acquired), right foot] Chronic Acquired foot deformities (19 sources) Acquired cavovarus deformity of left foot; [...] Onset: 08-23-2014 Chronic Chronic ulcer of skin (14 sources) Ulcer of foot; Translations: [Non-pressure chronic [...] sources) H/O: high risk medication; 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] Episodic Other aftercare (1 source) Long-term current use of drug therapy; 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] Episodic Other circulatory disease (1 source) Elevated blood-pressure reading, without diagnosis of hypertension; Translations: [Elevated blood pressure reading without diagnosis of hypertension] Onset: 11-26-2021 Episodic Other circulatory disease (18 sources) Carotid bruit; Translations: [Other specified symptoms [...] left foot] Episodic Other connective tissue disease (2 sources) Other specified soft tissue disorders; Translations: [Other specified soft tissue disorders] Onset: 05-15-2023 Episodic Other connective tissue disease (1 source) Pain in right lower limb; Translations: [Pain in right leg] Onset: 05-15-2023 Episodic Other diseases of bladder and urethra [...] eye] Episodic Skin and subcutaneous tissue infections (6 sources) Cellulitis of toe of left foot; [...] 08-28-2019 Episodic Other aftercare (1 source) Other retirement (current) drug therapy; 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] Onset: 10-22-2021 Episodic Other [...] Test Name Value Interpretation Reference Range Facility US venous duplex LE RTon US venous duplex LE RT [facility] [place] [address] Ultrasound Report Signed Patient: Norberto Washington MR#: [id number] 89 : 1940 Acct:[id number] Age/Sex: 83 / M ADM Date: 05/15/23 Loc: ER Room: Type: [facility] ER Attending Dr: Ordering Provider: Low Carter DO Date of Service: 05/15/23 US/US venous duplex LE RT: edema Copies to: Low Carter DO RIGHT LOWER EXTREMITY VENOUS DUPLEX INDICATION: Edema pain and tenderness for 3 months. Unilateral right lower extremity venous duplex Doppler study was obtained utilizing B-mode, color- flow and spectral Doppler. FINDINGS: The right common femoral, femoral, and popliteal veins showed adequate compressibility, color-flow and augmentation. The right posterior tibial and peroneal veins were compressible, as well as proximal greater saphenous vein. The contralateral left common femoral vein was compressible with color-flow and augmentation. US/US venous duplex LE RT IMPRESSION: NO EVIDENCE OF DEEP VENOUS THROMBOSIS IN THE RIGHT LOWER EXTREMITY. NO SUPERFICIAL THROMBOPHLEBITIS WAS NOTED. Impression dictated by: Gus Wren MD05/16/2023 11:15 AM Dictation Location: [place] [address] Tech: Helen Gama Transcribed By: PAUL 05/16/231114 Dictated By: Gus Wren MD 05/16/231113 Signed By: 05/16/231114 [facility] CNOVon 02-02-2023 CNOV Office Visit (UROLLN ) NORBERTO WASHINGTON ([id number]) 1940 M Date Time Provider Department 02/02/23 1:30 PM LETICIA MILIAN During your visit today, we recorded the following information about you: Pulse Blood pressure Weight 65/minute 146/70 102.1 kg Leticia Milian, DIRECTOR OF HEALTHCARE SYSTEMS.L D RN 02/02/2023 2:13 PM Signed Norberto Washington [address] [facility] [address] HISTORY OF PRESENT ILLNESS: Seen 07/28/22 for [...] see lab Duration: BPH w obs/luts, UTI [facility] SYMPTOMS SCORE. 1. INCOMPLETE EMPTYING [...] Stream (imp (more content not included)... Normal [facility] Bacteria Ur Culton 3 Bacteria identified Cx Nom (U) CULTURE, URINE: No growth (<1,000 CFU/ml) Normal [facility] Comment on above: Performed By: #### 6 30-4 #### [facility] CLIA [id number] [address] [place] [address] [place] CNOVon 07-28-2022 CNOV Office Visit (UROLLN ) NORBERTO WASHINGTON ([id number]) 1940 M Date Time Provider Department 07/28/22 1:30 PM LETICIA MILIAN During your visit today, we recorded the following information about you: Pulse Blood pressure Weight 68/minute 142/55 100.7 kg Leticia Milian APRN.L D RN 07/30/2022 4:34 PM Addendum Norberto Washington [address] [facility] [place] [address] HISTORY OF PRESENT ILLNESS: Seen 01/20/22 for [...] 07/20/22=neg UA 07/20/22=leuk esterase 250, wbc 11-25 [facility] SYMPTOMS SCORE. 1. INCOMPLETE EMPTYING [...] -DM UTI (more content not included)... Normal [facility] Bacteria Ur Culton 3 Bacteria identified Cx Nom (U) CULTURE, URINE: No growth (<1,000 CFU/ml) Normal [facility] Comment on above: Performed By: #### 6 30-4 #### [facility] CLIA [id number] [address] [place] [address] [place] Urinalysis complete panel (U )on 07-20-2022 Bilirubin Ql (U) Negative Normal Negative [facility] Comment on above: Order Comment: Speci men Type: URINE SPECIMEN Ordering Facility: [facility] Address: [address] [place] [address] Performed By: #### 2 4356-8 #### [facility] CLIA [id number] [address] [place] Clarity (Unsp spec) Clear Normal Clear [facility] Comment on above: Order Comment: Speci men Type: URINE SPECIMEN Ordering Facility: [facility] Address: [address] [place] [address] Performed By: #### 2 4356-8 #### [facility] CLIA [id number] [address] [place] Color (U) Yellow Normal Yellow [facility] Comment on above: Order Comment: Speci men Type: URINE SPECIMEN Ordering Facility: [facility] Address: [address] [place] [address] Performed By: #### 2 4356-8 #### [facility] CLIA [id number] [address] [place] [address] [place] Epithelial cells LM.HPF (Urine sed) [#/Area] Few Normal [facility] Comment on above: Order Comment: Speci men Type: URINE SPECIMEN Ordering Facility: [facility] Address: [address] [place], [place] [id number] Performed By: #### 2 4356-8 #### [facility] CLIA [id number] [address] [place] [address] [place] Glucose Test strip (U) [Mass/Vol] Negative Normal Trace, Negative [facility] Comment on above: Order Comment: Speci men Type: URINE SPECIMEN Ordering Facility: [facility] Address: [address] [place], [place] [id number] Performed By: #### 2 4356-8 #### [facility] CLIA [id number] [address] [place] [address] [place] Hemoglobin Ql (U) Negative Normal Negative, Trace [facility] Comment on above: Order Comment: Speci men Type: URINE SPECIMEN Ordering Facility: [facility] Address: [address] [place], [place] [id number] Performed By: #### 2 4356-8 #### [facility] CLIA [id number] [address] [place] [address] [place] Ketones Ql (U) Negative Normal Trace, Negative [facility] Comment on above: Order Comment: Speci men Type: URINE SPECIMEN Ordering Facility: [facility] Address: [address] [place], [place] [id number] Performed By: #### 2 4356-8 #### [facility] CLIA [id number] [address] [place] [address] [place] Leukocyte esterase Test strip Ql (U) 250 Ayaz/uL Abnormal Negative, 25 Ayaz/uL [facility] Comment on above: Order Comment: Speci men Type: URINE SPECIMEN Ordering Facility: [facility] Address: [address] [place], [place] [id number] Performed By: #### 2 4356-8 #### [facility] CLIA [id number] [address] [place] [address] [place] Nitrite Ql (U) Negative Normal Negative [facility] Comment on above: Order Comment: Speci men Type: URINE SPECIMEN Ordering Facility: [facility] Address: [address] [place], [place] [id number] Performed By: #### 2 4356-8 #### [facility] CLIA [id number] [address] [place] [address] [place] pH (U) 5.5 [pH] Normal 5.0-8.0 [facility] Comment on above: Order Comment: Speci men Type: URINE SPECIMEN Ordering Facility: [facility] Address: [address] [place], [place] [id number] Performed By: #### 2 4356-8 #### [facility] CLIA [id number] [address] [place] [address] [place] Protein (U) [Mass/Vol] Negative Normal Trace , Negative [facility] Comment on above: Order Comment: Speci men Type: URINE SPECIMEN Ordering Facility: [facility] Address: [address] [place], [place] [id number] Performed By: #### 2 4356-8 #### [facility] CLIA [id number] [address] [place] [address] [place] RBC LM.HPF (Urine sed) [#/Area] 0-3 /HPF Normal 0-3 /HPF [facility] Comment on above: Order Comment: Speci men Type: URINE SPECIMEN Ordering Facility: [facility] Address: [address] [place], [place] [id number] Performed By: #### 2 4356-8 #### [facility] CLIA [id number] [address] [place] [address] [place] Specific gravity (U) [Rel density] 1.016 Normal 1.005-1.030 [facility] Comment on above: Order Comment: Speci men Type: URINE SPECIMEN Ordering Facility: [facility] Address: [address] [place] [address] Performed By: #### 2 4356-8 #### [facility] CLIA [id number] [address] [place] [address] [place] Urobilinogen Ql (U) Negative Normal Negative [facility] Comment on above: Order Comment: Speci men Type: URINE SPECIMEN Ordering Facility: [facility] Address: [address] [place] [address] Performed By: #### 2 4356-8 #### [facility] CLIA [id number] [address] [place] [address] [place] WBC LM.HPF (Urine sed) [#/Area] 11-25 /HPF Abnormal 0-5 /HPF [facility] Comment on above: Order Comment: Speci men Type: URINE SPECIMEN Ordering Facility: [facility] Address: [address] [place] [address] Performed By: #### 2 4356-8 #### [facility] CLIA [id number] [address] [place] [address] [place] GLYCOHEMOGLOBIN A1Con 2022 ADA RECOMMENDATION SEE BELOW Normal [facility] Comment on above: Result Comment: ADA RECOMMENDED LIMIT 4.0 - 6.0 ADA THERAPEUTIC TARGET < 7.0 ACTION SUGGESTED > 7.0 Performed By: #### A 1C #### [facility] [address] [place] [address] Dr. Juan Pablo Kaminski Glucose [Mass/Vol] 128 mg/dL Normal [facility] Comment on above: Performed By: #### A 1C #### [facility] [address] [place] [address] Dr. Juan Pablo Kaminski HbA1c (Bld) [Mass fraction] 6.1 % Normal 4.5-6.2 [facility] Comment on above: Performed By: #### A 1C #### [facility] [address] [place] [address] Dr. Juan Pablo Kaminski A1C with Estimated Average G luon 03-20-2022 A1C with Estimated Average Glu 128 [facility] [place] Other A1C with Estimated Average Glu [facility] [place] Other HbA1c (Bld) [Mass fraction] 6.1 % Normal 4.5-6.2 [facility] [place] Other Comment on above: Performed By: #### A 1C #### [facility] [address] [place] [address] Dr. Juan Pablo Kaminski GLYCOHEMOGLOBIN A1Con 2022 ADA RECOMMENDATION SEE BELOW Normal [facility] Comment on above: Result Comment: ADA RECOMMENDED LIMIT 4.0 - 6.0 ADA THERAPEUTIC TARGET < 7.0 ACTION SUGGESTED > 7.0 Performed By: #### A 1C #### [facility] [address] [place] [address] Dr. Juan Pablo Kaminski Glucose [Mass/Vol] 128 mg/dL Normal [facility] Comment on above: Performed By: #### A 1C #### [facility] [address] [place] [address] Dr. Juan Pablo Kaminski US SCROTUM W [...] by: LEIDY PEREIRA Date: 2021-12-25 18:32 Normal [facility] Urine culture routineOrdered By: Sam Simons on 12-19-2021 Bacteria identified Cx Nom (U) Pseudomonas aeruginosa [facility] Automated erythrocytes count in urine sediment (number/area)Ordered By: Sam Simons on 12-17-2021 RBC Auto (Urine sed) [#/Area] 1-2 [HPF] 0-4 [facility] Automated leukocytes count i n urine sediment (number/area)Ordered By: Sam Simons on 12-17-2021 WBC Auto (Urine sed) [#/Area] 20-49 [HPF] 0-4 [facility] Bilirubin Test strip Ql (U)O rdered By: Sam Simons on 12-17-2021 Bilirubin Ql (U) Negative Negative [facility] Color Auto (U)Ordered By: Micheal Simons on 12-17-2021 Color (U) Yellow Yellow [facility] Ketones Auto test strip (U) [Mass/Vol]Ordered By: Sam Simons on 12-17-2021 Ketones (U) [Mass/Vol] Negative Negative [facility] - UrinalysisOrder ed By: Sam Simons on 12-17-2021 Hyaline casts LM Ql (Urine sed) 0-8 [LPF] 0-8 [facility] Nitrite Test strip Ql (U)Ord ered By: Sam Simons on 12-17-2021 Nitrite Ql (U) Negative Negative [facility] Protein Auto test strip (U) [Mass/Vol]Ordered By: Sam Simons on 12-17-2021 Protein (U) [Mass/Vol] Negative [facility] Specific gravity Auto test s trip (U) [Rel density]Ordered By: Sam Simons on 12-17-2021 Specific gravity (U) [Rel density] 1.016 1.001-1.030 [facility] Squamous epithelial cells de tection in urine sediment by light microscopyOrdered By: Sam Simons on 12-17-2021 Epithelial cells.squamous LM Ql (Urine sed) 0-1 [HPF] 0-2 [facility] Urine bacteria detection by automated methodOrdered By: Sam Simons on 12-17-2021 Bacteria Auto Ql (U) None seen None Seen [facility] Urine clarity by refractomet ry automatedOrdered By: Sam Simons on 12-17-2021 Clarity Refractometry automated (U) Clear Clear [facility] Urine glucose measurement by automated test strip (mass/volume)Ordered By: Sam Simons on 12-17-2021 Glucose Auto test strip (U) [Mass/Vol] Normal mg/dL Normal [facility] Urine hemoglobin detection b y automated test stripOrdered By: Sam Simons on 12-17-2021 Hemoglobin Auto test strip Ql (U) Negative Negative [facility] Urine leukocyte esterase det ection by automated test stripOrdered By: Sam Simons on 12-17-2021 Leukocyte esterase Auto test strip Ql (U) 4+ Negative [facility] Urobilinogen Auto test strip (U) [Mass/Vol]Ordered By: Sam Simons on 12-17-2021 Urobilinogen (U) [Mass/Vol] Normal mg/dL Normal [facility] pH Auto test strip (U)Ordere d By: Sam Simons on 12-17-2021 pH (U) 6.0 [pH] 5.0-9.0 [facility] Urine culture routineOrdered By: Davis Cervantes on 12-13-2021 Bacteria identified Cx Nom (U) No Growth 2 Days [facility] Automated erythrocytes count in urine sediment (number/area)Ordered By: Davis Cervantes on 12-11-2021 RBC Auto (Urine sed) [#/Area] 20-49 [HPF] 0-4 [facility] Automated leukocytes count i n urine sediment (number/area)Ordered By: Davis Cervantes on 12-11-2021 WBC Auto (Urine sed) [#/Area] 10-19 [HPF] 0-4 [facility] Basophils Auto (Bld) [#/Vol] Ordered By: Davis Cervantes on 12-11-2021 Basophils (Bld) [#/Vol] 0.1 10*3/uL 0.0-0.2 [facility] Basophils/100 WBC Auto (Bld) Ordered By: Davis Cervantes on 12-11-2021 Basophils/100 WBC (Bld) 1.2 % . [facility] Bilirubin Test strip Ql (U)O rdered By: Davis Cervantes on 12-11-2021 Bilirubin Ql (U) Negative Negative [facility] Blood hemoglobin measurement (mass/volume)Ordered By: Davis Cervantes on 12-11-2021 Hemoglobin (Bld) [Mass/Vol] 13.3 g/dL 13.0-17.0 [facility] Blood leukocytes automated c ount (number/volume)Ordered By: Davis Cervantes on 12-11-2021 WBC (Bld) [#/Vol] 8.2 10*3/uL 4.5-11.0 [facility] Color Auto (U)Ordered By: Mary Cervantes on 12-11-2021 Color (U) Yellow Yellow [facility] Creatinine and Glomerular fi ltration rate.predicted panel (S/P/Bld)Ordered By: Davis Cervantes on 12-11-2021 Creatinine [Mass/Vol] 1.16 mg/dL 0.64-1.27 [facility] Eosinophils Auto (Bld) [#/Vo l]Ordered By: Davis Cervnates on 12-11-2021 Eosinophils (Bld) [#/Vol] 0.2 10*3/uL 0.0-0.45 [facility] Eosinophils/100 WBC Auto (Bl d)Ordered By: Davis Cervantes on 12-11-2021 Eosinophils/100 WBC (Bld) 2.9 % . [facility] Erythrocyte distribution wid th Auto (RBC) [Ratio]Ordered By: Davis Cervantes on 12-11-2021 Erythrocyte distribution width (RBC) [Ratio] 11.8 % 12.0-14.8 [facility] Estimated glomerular filtrat ion rate (GFR) non- AmericanOrdered By: Davis Cervantes on 12-11-2021 GFR/1.73 sq M.predicted among non-blacks MDRD (S/P/Bld) [Vol rate/Area] 60 mL/Min [facility] Hematocrit Auto (Bld) [Volum e fraction]Ordered By: Davis Cervantes on 12-11-2021 Hematocrit (Bld) [Volume fraction] 39.6 % 38.8-50.0 [facility] Ketones Auto test strip (U) [Mass/Vol]Ordered By: Davis Cervantes on 12-11-2021 Ketones (U) [Mass/Vol] Negative Negative [facility] - Hematology and Cell countsOrdered By: Davis Cervantes on 12-11-2021 Nucleated RBC/100 WBC (Bld) [Ratio] 0.0 % 0-0.5 [facility] Laboratory - UrinalysisOrder ed By: Davis Cervantes on 12-11-2021 Hyaline casts LM Ql (Urine sed) 0-8 [LPF] 0-8 [facility] Lymphocytes Auto (Bld) [#/Vo l]Ordered By: Davis Cervantes on 12-11-2021 Lymphocytes (Bld) [#/Vol] 1.9 10*3/uL 1.00-4.8 [facility] Lymphocytes/100 WBC Auto (Bl d)Ordered By: Davis Cervantes on 12-11-2021 Lymphocytes/100 WBC (Bld) 23.3 % . [facility] MCH Auto (RBC) [Entitic mass ]Ordered By: Davis Cervantes on 12-11-2021 MCH (RBC) [Entitic mass] 32.0 pg 27.5-35.2 [facility] MCHC Auto (RBC) [Mass/Vol]Or dered By: Davis Cervantes on 12-11-2021 MCHC (RBC) [Mass/Vol] 33.6 g/dL 32.5-35.6 [facility] MCV Auto (RBC) [Entitic vol] Ordered By: Davis Cervantes on 12-11-2021 MCV (RBC) [Entitic vol] 95.1 fL 83.5-101 [facility] Monocytes Auto (Bld) [#/Vol] Ordered By: Davis Cervantes on 12-11-2021 Monocytes (Bld) [#/Vol] 1.1 10*3/uL 0.0-0.8 [facility] Monocytes/100 WBC Auto (Bld) Ordered By: Davis Cervantes on 12-11-2021 Monocytes/100 WBC (Bld) 13.6 % . [facility] Neutrophils Auto (Bld) [#/Vo l]Ordered By: Davis Cervantes on 12-11-2021 Neutrophils (Bld) [#/Vol] 4.8 10*3/uL 1.8-7.7 [facility] Neutrophils/100 WBC Auto (Bl d)Ordered By: Davis Cervantes on 12-11-2021 Neutrophils/100 WBC (Bld) 59.0 % . [facility] Nitrite Test strip Ql (U)Ord ered By: Davis Cervantes on 12-11-2021 Nitrite Ql (U) Negative Negative [facility] No Panel InformationOrdered By: Davis Cervantes on 12-11-2021 Estimated GFR () > 60 mL/Min [facility] Comment on above: GFR estimated refere nce range: According to KDOQI guidelines, <60 ml/min/1.73m2 is sufficient to diagnose a patient with chronic kidney disease. Pharmacy Creatinine Clearance (Chem 57.67 [facility] Platelet mean volume Auto (B ld) [Entitic vol]Ordered By: Davis Cervantes on 12-11-2021 Platelet mean volume (Bld) [Entitic vol] 7.0 fL 6.6-10.1 [facility] Platelets Auto (Bld) [#/Vol] Ordered By: Davis Cervantes on 12-11-2021 Platelets (Bld) [#/Vol] 266 10*3/uL 150-450 [facility] Protein Auto test strip (U) [Mass/Vol]Ordered By: Davis Cervantes on 12-11-2021 Protein (U) [Mass/Vol] Negative Negative [facility] RBC Auto (Bld) [#/Vol]Ordere d By: Davis Cervantes on 12-11-2021 RBC (Bld) [#/Vol] 4.17 10*6/uL 3.90-5.60 [facility] Serum or plasma anion gap de terminationOrdered By: Davis Cervantes on 12-11-2021 Anion gap [Moles/Vol] 12.2 mmol/L 6.0-15.0 [facility] Serum or plasma calcium maggy urement (mass/volume)Ordered By: Davis Cervantes on 12-11-2021 Calcium [Mass/Vol] 9.0 mg/dL 8.2-10.2 [facility] Serum or plasma chloride duran surement (moles/volume)Ordered By: Davis Cervantes on 12-11-2021 Chloride [Moles/Vol] 96 mmol/L 95-114 [facility] Serum or plasma glucose maggy urement (mass/volume)Ordered By: Davis Cervantes on 12-11-2021 Glucose [Mass/Vol] 131 mg/dL 70-100 [facility] Comment on above: ADA recommended refe rence rangeRandom Glucose Reference Range is dependent on time and content of last meal. Glucose of more than 200 mg/dL in a nonstressed, ambulatory subject supports the diagnosis of Diabetes Mellitus. Serum or plasma potassium me asurement (moles/volume)Ordered By: Davis Cervantes on 12-11-2021 Potassium [Moles/Vol] 4.5 mmol/L 3.5-5.1 [facility] Serum or plasma sodium measu rement (moles/volume)Ordered By: Davis Cervantes on 12-11-2021 Sodium [Moles/Vol] 131 mmol/L 136-146 [facility] Serum or plasma total carbon dioxide measurement (moles/volume)Ordered By: Davis Cervantes on 12-11-2021 CO2 [Moles/Vol] 27.3 mmol/L 22.0-30.0 [facility] Serum or plasma urea nitroge n measurement (mass/volume)Ordered By: Davis Cervantes on 12-11-2021 Urea nitrogen [Mass/Vol] 20 mg/dL 9-23 [facility] Specific gravity Auto test s trip (U) [Rel density]Ordered By: Davis Cervantes on 12-11-2021 Specific gravity (U) [Rel density] 1.014 1.001-1.030 [facility] Squamous epithelial cells de tection in urine sediment by light microscopyOrdered By: Davis Cervantes on 12-11-2021 Epithelial cells.squamous LM Ql (Urine sed) 0-1 [HPF] 0-2 [facility] Urine bacteria detection by automated methodOrdered By: Davis Cervantes on 12-11-2021 Bacteria Auto Ql (U) None seen None Seen [facility] Urine clarity by refractomet ry automatedOrdered By: Davis Cervantes on 12-11-2021 Clarity Refractometry automated (U) Clear Clear [facility] Urine glucose measurement by automated test strip (mass/volume)Ordered By: Davis Cervantes on 12-11-2021 Glucose Auto test strip (U) [Mass/Vol] Normal mg/dL Normal [facility] Urine hemoglobin detection b y automated test stripOrdered By: Davis Cervantes on 12-11-2021 Hemoglobin Auto test strip Ql (U) 2+ Negative [facility] Urine leukocyte esterase det ection by automated test stripOrdered By: Davis Cervantes on 12-11-2021 Leukocyte esterase Auto test strip Ql (U) 2+ Negative [facility] Urobilinogen Auto test strip (U) [Mass/Vol]Ordered By: Davis Cervantes on 12-11-2021 Urobilinogen (U) [Mass/Vol] Normal mg/dL Normal [facility] pH Auto test strip (U)Ordere d By: Davis Cervantes on 12-11-2021 pH (U) 5.5 [pH] 5.0-9.0 [facility] ED NOTEon 11-27-2021 ED NOTE HNO ID: [id number] Author: Alyx Vergara RN Service: Nursing Author Type: Registered Nurse Type: ED Notes Filed: 11/26/2021 10:21 PM Note Text: Discharge instructions and follow up appointments reviewed. Pt verbalized understanding and states no concerns or questions at this time. VSS. Spoke with Asha about elevated BP. Stated that it's okay for pt to go and have him f/u with his PCP. Normal [facility] ED NOTE HNO ID: [id number] Author: Alyx Vergara, RN Service: Nursing Author Type: Registered Nurse Type: ED Notes Filed: 11/26/2021 10:10 PM Note Text: Replaced hamilton bag with leg bag. Normal [facility] Bacteria Ur Culton 2 Bacteria identified Cx Nom (U) [id number] Abnormal [facility] Comment on above: Order Comment: Speci men Type: URINE SPECIMEN Ordering Facility: [facility] Address: [address] [place] [address] Result Comment: >=10 0,000 CFU/ml Klebsiella oxytoca Performed By: #### 6 30-4, 17689-4 #### [facility] CLIA [id number] [address] [place] [address] [place] Bacterial susceptibility maldonado el (Isol)on 11-26-2021 Ampicillin [Susc] [facility]: Order Comment: Order ing Facility: [facility] Address: [address] [place] [address] Performed By: #### 6 30-4, 03380-4 #### [facility] CLIA [id number] [address] [place] [address] [place] Ampicillin+Sulbactam [Susc] 4 Susceptible Susceptible <=8 , Intermediate >8 , Resistant >16 [facility] Comment on above: Order Comment: Order ing Facility: [facility] Address: [address] [place] [address] Performed By: #### 6 30-4, 02246-8 #### [facility] CLIA [id number] [address] [place] [address] ceFAZolin [Susc] <=4 Susceptible Susceptible 0-16 , Intermediate <0 or >16 , Resistant >16 [facility] Comment on above: Order Comment: Order ing Facility: [facility] Address: [address] [place] [address] Performed By: #### 6 30-4, 03475-3 #### [facility] CLIA [id number] [address] [place] [address] [place] Cefepime [Susc] <=1 Susceptible Susceptible <=2 , Intermediate >2 , Resistant >=16 [facility] Comment on above: Order Comment: Order ing Facility: [facility] Address: [address] [place] [address] Performed By: #### 6 30-4, 64291-8 #### [facility] CLIA [id number] [address] [place] [address] [place] cefTRIAXone [Susc] <=1 Susceptible Susceptib le <=1 , Intermediate >1 , Resistant >=4 [facility] Comment on above: Order Comment: Order ing Facility: [facility] Address: [address] [place] [address] Performed By: #### 6 30-4, 04985-4 #### [facility] CLIA [id number] [address] [place] [address] Ciprofloxacin [Susc] <=0.25 Susceptible Suscept ible <0.5 , Intermediate >=.5 , Resistant >=1 [facility] Comment on above: Order Comment: Order ing Facility: [facility] Address: [address] [place] [address] Performed By: #### 6 30-4, 90221-3 #### [facility] CLIA [id number] [address] [place] [address] [place] Ertapenem ROCIO [Susc] <=0.5 Susceptible Suscept ible <=0.5 , Intermediate >.5 , Resistant >1 [facility] Comment on above: Order Comment: Order ing Facility: [facility] Address: [address] [place] [address] Performed By: #### 6 30-4, 42058-9 #### [facility] CLIA [id number] [address] [place] [address] [place] Gentamicin [Susc] <=1 Susceptible Susceptibl e <=4 , Intermediate >4 , Resistant >8 [facility] Comment on above: Order Comment: Order ing Facility: [facility] Address: [address] [place], [place] [address] Performed By: #### 6 30-4, 17551-8 #### [facility] CLIA [id number] [address] [place] [address] Meropenem [Susc] <=0.25 Susceptible Susceptible <=1 , Intermediate >1 , Resistant >2 [facility] Comment on above: Order Comment: Order ing Facility: [facility] Address: [address] [place], [place] [address] Performed By: #### 6 30-4, 95256-3 #### [facility] CLIA [id number] [address] [place] [address] Nitrofurantoin [Susc] 32 Susceptible Suscep tible <=32 , Intermediate >32 , Resistant >64 [facility] Comment on above: Order Comment: Order ing Facility: [facility] Address: [address] [place], [place] [address] Performed By: #### 6 30-4, 51269-5 #### [facility] CLIA [id number] [address] [place] [address] Piperacillin+Sulbactam ROCIO [Susc] <=4 Susceptible Susceptible <=16 , Intermediate >16 , Resistant >64 [facility] Comment on above: Order Comment: Order ing Facility: [facility] Address: [address] [place], [place] [address] Performed By: #### 6 30-4, 22998-9 #### [facility] CLIA [id number] [address] [place] [address] [place] Tobramycin [Susc] <=1 Susceptible Susceptibl e <=4 , Intermediate >4 , Resistant >8 [facility] Comment on above: Order Comment: Order ing Facility: [facility] Address: [address] [place], [place] [phone] Performed By: #### 6 30-4, 62991-0 #### [facility] CLIA [id number] [address] [place] [address] Trimethoprim+Sulfameth oxazole [Susc] <=20 Susceptible Susceptible <=40 , Resistant >40 [facility] Comment on above: Order Comment: Order ing Facility: [facility] Address: [address] [place] [address] Performed By: #### 6 30-4, 40126-1 #### [facility] CLIA [id number] [address] [place] [address] ED NOTEon 11-26-2021 ED NOTE HNO ID: [id number] Author: Alyx Vergara RN Service: Nursing Author Type: Registered Nurse Type: ED Notes Filed: 11/26/2021 9:20 PM Note Text: Replaced hamilton per Asha BARR. [facility] ED NOTE HNO ID: [id number] Author: Alyx Vergara RN Service: Nursing Author Type: Registered Nurse Type: ED Notes Filed: 11/26/2021 9:01 PM Note Text: Was instructed to bladder scan pt due to pt having no urine in replaced bag. Bladder scanned 261 mL's the first time. Then 214 mL's the second time. Made Asha ESQUIVEL) aware. [facility] ED NOTE HNO ID: [id number] Author: Alyx Vergara RN Service: Nursing Author Type: Registered Nurse Type: ED Notes Filed: 11/26/2021 9:49 PM Note Text: Flushed 20 mL Hamilton. No leaking noted around tube. [facility] ED PROV NOTEon 11-26-2021 ED PROV NOTE HNO ID: [id number] Author: Asha Clinton PA-C Service: ? Author Type: Physician Tutoring Manager Type: ED Provider Notes Filed: 11/26/2021 [...] culture. Previous and only urine culture in [facility] on 11/07 had no growth. Given dose of Keflex. Prescription for this E scripted to pharmacy. Patient discharged with Hamilton in place, leg bag instructions. Elevated blood pressure noted and improved during stay. No CP, sob, dizziness or any other complaints. Recommend f/u with pcp for recheck. All questions and concerns addre (more content not included)... Normal [facility] Urinalysis complete panel (U )on 11-26-2021 Bacteria LM.HPF (Urine sed) [#/Area] Many Abnormal None Seen [facility] Comment on above: Order Comment: Speci men Type: URINE SPECIMEN Ordering Facility: [facility] Address: [address] [place] [address] Performed By: #### 6 30-4, 54681-0 #### [facility] CLIA [id number] [address] [place] [address] [place] Bilirubin Ql (U) Negative Normal Negative [facility] Comment on above: Order Comment: Speci men Type: URINE SPECIMEN Ordering Facility: [facility] Address: [address] [place] [address] Performed By: #### 6 30-4, 94647-4 #### [facility] CLIA [id number] [address] [place] [address] [place] Clarity (Unsp spec) Cloudy Abnormal Clear [facility] Comment on above: Order Comment: Speci men Type: URINE SPECIMEN Ordering Facility: [facility] Address: [address] [place] [address] Performed By: #### 6 30-4, 26721-6 #### [facility] CLIA [id number] [address] [place] [address] [place] Color (U) Yellow Normal Yellow [facility] Comment on above: Order Comment: Speci men Type: URINE SPECIMEN Ordering Facility: [facility] Address: [address] [place] [address] Performed By: #### 6 30-4, 10439-1 #### [facility] CLIA [id number] [address] [place] [address] [place] Epithelial cells LM.HPF (Urine sed) [#/Area] Few Normal [facility] Comment on above: Order Comment: Speci men Type: URINE SPECIMEN Ordering Facility: [facility] Address: [address] [place], [place] [phone] Performed By: #### 6 30-4, 09175-3 #### [facility] CLIA [id number] [address] [place] [address] Glucose Test strip (U) [Mass/Vol] Negative Normal Negative [facility] Comment on above: Order Comment: Speci men Type: URINE SPECIMEN Ordering Facility: [facility] Address: [address] [place], [place] [address] Performed By: #### 6 30-4, 56092-8 #### [facility] CLIA [id number] [address] [place] [address] [place] Hemoglobin Ql (U) 2+ Abnormal Negative [facility] Comment on above: Order Comment: Speci men Type: URINE SPECIMEN Ordering Facility: [facility] Address: [address] [place] [address] Performed By: #### 6 30-4, 34929-0 #### [facility] CLIA [id number] [address] [place] [address] [place] Ketones Ql (U) Negative Normal Negative [facility] Comment on above: Order Comment: Speci men Type: URINE SPECIMEN Ordering Facility: [facility] Address: [address] [place], [place] [address] Performed By: #### 6 30-4, 31120-2 #### [facility] CLIA [id number] [address] [place] [address] [place] Leukocyte esterase Test strip Ql (U) 3+ Abnormal Negative [facility] Comment on above: Order Comment: Speci men Type: URINE SPECIMEN Ordering Facility: [facility] Address: [address] [place], [place] [address] Performed By: #### 6 30-4, 51461-8 #### [facility] CLIA [id number] [address] [place] [address] [place] Nitrite Ql (U) Positive Abnormal Negative [facility] Comment on above: Order Comment: Speci men Type: URINE SPECIMEN Ordering Facility: [facility] Address: [address] [place] [address] Performed By: #### 6 30-4, 55312-0 #### [facility] CLIA [id number] [address] [place] [address] [place] pH (U) 5.5 [pH] Normal 5.0-8.0 [facility] Comment on above: Order Comment: Speci men Type: URINE SPECIMEN Ordering Facility: [facility] Address: [address] [place] [address] Performed By: #### 6 30-4, 63080-1 #### [facility] CLIA [id number] [address] [place] [address] STATES [facility] Protein (U) [Mass/Vol] Normal [facility] Comment on above: Order Comment: Speci men Type: URINE SPECIMEN Ordering Facility: [facility] Address: [address] [place] [address] Result Comment: Visi ble blood causes falsely elevated results for analyte Protein. Due to this limitation, Protein will not be reported for patients whose urine contains visible blood. Performed By: #### 6 30-4, 45074-1 #### [facility] CLIA [id number] [address] [place] [address] [place] RBC LM.HPF (Urine sed) [#/Area] 6-10 /HPF Abnormal 0-3 /HPF [facility] Comment on above: Order Comment: Speci men Type: URINE SPECIMEN Ordering Facility: [facility] Address: [address] [place] [address] Performed By: #### 6 30-4, 49732-2 #### [facility] CLIA [id number] [address] [place] [address] [place] Specific gravity (U) [Rel density] 1.009 Normal 1.005-1.030 [facility] Comment on above: Order Comment: Speci men Type: URINE SPECIMEN Ordering Facility: [facility] Address: [address] [place] [address] Performed By: #### 6 30-4, 51633-7 #### [facility] CLIA [id number] [address] [place] [address] [place] Urobilinogen Ql (U) 0.2 EU/dL Normal 0.2-1.0 EU/dL [facility] Comment on above: Order Comment: Speci men Type: URINE SPECIMEN Ordering Facility: [facility] Address: [address] [place] [address] Performed By: #### 6 30-4, 98418-2 #### [facility] CLIA [id number] [address] [place] [address] WBC LM.HPF (Urine sed) [#/Area] 11-25 /HPF Abnormal 0-5 /HPF [facility] Comment on above: Order Comment: Speci men Type: URINE SPECIMEN Ordering Facility: [facility] Address: [address] [place] [address] Performed By: #### 6 30-4, 28682-4 #### [facility] CLIA [id number] [address] [place] [address] [place] Covid-19 PCR (CVDTBH)on SARS-CoV-2 (COVID-19) RNA LUANNE+probe Ql (Unsp spec) Not detected Normal NOT DETECTED [facility] Comment on above: Result Comment: This test is not yet approved or cleared by the [place] FDA. When there are no FDA-approved or cleared tests available, and other criteria are met, FDA can make tests available under an emergency access mechanism called an Emergency Use Authorization (EUA). The EUA for this test is supported by the [employer] of Health and Human Service's (HHS's) declaration [...] consistent with SARS-CoV-2. Performed By: #### [facility] #### [facility] [address] [place] [address] Dr. Juan Pablo Kaminski Bacteria Ur Culton 2 Bacteria identified Cx Nom (U) No growth (<1,000 CFU/ml) Normal [facility] Comment on above: Order Comment: Speci men Type: URINE SPECIMEN Ordering Facility: [facility] Address: [address] [place] [address] Performed By: #### 6 30-4 #### [facility] CLIA [id number] [address] [place] [address] [place] Basic metabolic 2000 panelon 11-07-2021 Anion gap [Moles/Vol] 10 mmol/L Normal 9-18 [facility] Comment on above: Order Comment: Speci men Type: URINE SPECIMEN Ordering Facility: [facility] Address: [address] [place] [address] Performed By: #### 6 30-4, 00322-3 #### [facility] CLIA [id number] [address] [place] [address] [place] Calcium [Mass/Vol] 9.1 mg/dL Normal 8.5-10.2 [facility] Comment on above: Order Comment: Speci men Type: URINE SPECIMEN Ordering Facility: [facility] Address: [address] [place] [address] Performed By: #### 6 30-4, 33639-9 #### [facility] CLIA [id number] [address] [place] [address] Chloride [Moles/Vol] 95 mmol/L Low 97-105 [facility] Comment on above: Order Comment: Speci men Type: URINE SPECIMEN Ordering Facility: [facility] Address: [address] [place] [address] Performed By: #### 6 30-4, 52642-7 #### [facility] CLIA [id number] [address] [place] [address] [place] CO2 [Moles/Vol] 25 mmol/L Normal 22-30 [facility] Comment on above: Order Comment: Speci men Type: URINE SPECIMEN Ordering Facility: [facility] Address: [address] [place] [address] Performed By: #### 6 30-4, 65313-8 #### [facility] CLIA [id number] [address] [place] [address] [place] Creatinine [Mass/Vol] 1.25 mg/dL High 0.73-1.22 [facility] Comment on above: Order Comment: Speci men Type: URINE SPECIMEN Ordering Facility: [facility] Address: [address] [place] [address] Performed By: #### 6 30-4, 35219-0 #### [facility] CLIA [id number] [address] [place] [address] ESTIMATED GLOMERULAR FILTRATION RATE 57 mL/min/1.73m??? Low >=60 [facility] Comment on above: Order Comment: Speci men Type: URINE SPECIMEN Ordering Facility: [facility] Address: [address] [place], [place] [address] Result Comment: Annalise mated Glomerular Filtration Rate [...] actual GFR. Performed By: #### 6 30-4, 96018-3 #### [facility] CLIA [id number] [address] [place] [address] [place] Glucose [Mass/Vol] 129 mg/dL High 74-99 [facility] Comment on above: Order Comment: Speci men Type: URINE SPECIMEN Ordering Facility: [facility] Address: [address] [place] [address] Result Comment: The [place] [employer] (ADA) provides guidance for cutoff [...] Standards of Medical Care in Diabetes 2016, [place] [employer]. Diabetes Care. 2016.39(Suppl 1). Performed By: #### 6 30-4, 53666-4 #### [facility] CLIA [id number] [address] [place] [address] [place] Potassium [Moles/Vol] 4.6 mmol/L Normal 3.7-5.1 [facility] Comment on above: Order Comment: Speci men Type: URINE SPECIMEN Ordering Facility: [facility] Address: [address] [place], [place] [phone] Performed By: #### 6 30-4, 86728-1 #### [facility] CLIA [id number] [address] [place] [address] [place] Sodium [Moles/Vol] 130 mmol/L Low 136-144 [facility] Comment on above: Order Comment: Speci men Type: URINE SPECIMEN Ordering Facility: [facility] Address: [address] [place] [address] Performed By: #### 6 30-4, 08337-0 #### [facility] CLIA [id number] [address] [place] [address] [place] Urea nitrogen [Mass/Vol] 23 mg/dL Normal 9-24 [facility] Comment on above: Order Comment: Speci men Type: URINE SPECIMEN Ordering Facility: [facility] Address: [address] [place], [place] [address] Performed By: #### 6 30-4, 52857-6 #### [facility] CLIA [id number] [address] [place] [address] [place] CBC W Auto Differential pane l (Bld)on 11-07-2021 Basophils/100 WBC (Bld) 0.0 % Normal [facility] Comment on above: Order Comment: Speci men Type: URINE SPECIMEN Ordering Facility: [facility] Address: [address] [place], [place] [address] Performed By: #### 6 30-4, 57829-4 #### [facility] CLIA [id number] [address] [place] [address] [place] Differential cell count method Nom (Bld) Manual Normal [facility] ital Comment on above: Order Comment: Speci men Type: URINE SPECIMEN Ordering Facility: [facility] Address: [address] [place], [place] [address] Performed By: #### 6 30-4, 14438-9 #### [facility] CLIA [id number] [address] [place] [address] [place] Eosinophils (Bld) [#/Vol] 0.10 10*3/uL Normal <0.46 [facility] Comment on above: Order Comment: Speci men Type: URINE SPECIMEN Ordering Facility: [facility] Address: [address] [place], [place] [address] Performed By: #### 6 30-4, 64544-1 #### [facility] CLIA [id number] [address] [place] [address] [place] Eosinophils/100 WBC (Bld) 1.0 % Normal [facility] Comment on above: Order Comment: Speci men Type: URINE SPECIMEN Ordering Facility: [facility] Address: [address] [place] [address] Performed By: #### 6 30-4, 01820-4 #### [facility] CLIA [id number] [address] [place] [address] [place] Erythrocyte distribution width (RBC) [Ratio] 11.5 % Normal 11.5-15.0 [facility] Comment on above: Order Comment: Speci men Type: URINE SPECIMEN Ordering Facility: [facility] Address: [address] [place] [address] Performed By: #### 6 30-4, 95759-0 #### [facility] CLIA [id number] [address] [place] [address] [place] Hematocrit (Bld) [Volume fraction] 39.8 % Normal 39.0-51.0 [facility] Comment on above: Order Comment: Speci men Type: URINE SPECIMEN Ordering Facility: [facility] Address: [address] [place] [address] Performed By: #### 6 30-4, 19292-0 #### [facility] CLIA [id number] [address] [place] [address] [place] Hemoglobin (Bld) [Mass/Vol] 13.4 g/dL Normal 13.0-17.0 [facility] Comment on above: Order Comment: Speci men Type: URINE SPECIMEN Ordering Facility: [facility] Address: [address] [place], [place] [address] Performed By: #### 6 30-4, 24015-2 #### [facility] CLIA [id number] [address] [place] [address] [place] Lymphocytes (Bld) [#/Vol] 1.67 10*3/uL Normal 1.00-4.00 [facility] Comment on above: Order Comment: Speci men Type: URINE SPECIMEN Ordering Facility: [facility] Address: [address] [place] [address] Performed By: #### 6 30-4, 73040-5 #### [facility] CLIA [id number] [address] [place] [address] Lymphocytes/100 WBC (Bld) 17.0 % Normal [facility] Comment on above: Order Comment: Speci men Type: URINE SPECIMEN Ordering Facility: [facility] Address: [address] [place] [address] Performed By: #### 6 30-4, 78422-0 #### [facility] CLIA [id number] [address] [place] [address] [place] MCH (RBC) [Entitic mass] 31.5 pg Normal 26.0-34.0 [facility] Comment on above: Order Comment: Speci men Type: URINE SPECIMEN Ordering Facility: [facility] Address: [address] [place] [address] Performed By: #### 6 30-4, 50925-6 #### [facility] CLIA [id number] [address] [place] [address] [place] MCHC (RBC) [Mass/Vol] 33.7 g/dL Normal 30.5-36.0 [facility] Comment on above: Order Comment: Speci men Type: URINE SPECIMEN Ordering Facility: [facility] Address: [address] [place] [address] Performed By: #### 6 30-4, 48965-3 #### [facility] CLIA [id number] [address] [place] [address] [place] MCV (RBC) [Entitic vol] 93.4 fL Normal 80.0-100.0 [facility] Comment on above: Order Comment: Speci men Type: URINE SPECIMEN Ordering Facility: [facility] Address: [address] [place], [place] [address] Performed By: #### 6 30-4, 96807-3 #### [facility] CLIA [id number] [address] [place] [address] [place] Neutrophils (Bld) [#/Vol] 6.29 10*3/uL Normal 1.45-7.50 [facility] Comment on above: Order Comment: Speci men Type: URINE SPECIMEN Ordering Facility: [facility] Address: [address] [place], [place] [address] Performed By: #### 6 30-4, 83474-4 #### [facility] CLIA [id number] [address] [place] [address] [place] Neutrophils/100 WBC (Bld) 64.0 % Normal [facility] Comment on above: Order Comment: Speci men Type: URINE SPECIMEN Ordering Facility: [facility] Address: [address] [place], [place] [address] Performed By: #### 6 30-4, 54023-3 #### [facility] CLIA [id number] [address] [place] [address] [place] Nucleated RBC/100 WBC (Bld) [Ratio] 0.0 /100 WBC Normal [facility] Comment on above: Order Comment: Speci men Type: URINE SPECIMEN Ordering Facility: [facility] Address: [address] [place], [place] [address] Performed By: #### 6 30-4, 86218-4 #### [facility] CLIA [id number] [address] [place] [address] [place] PLATELET ESTIMATE Adequate Normal [facility] Comment on above: Order Comment: Speci men Type: URINE SPECIMEN Ordering Facility: [facility] Address: [address] [place], [place] [address] Performed By: #### 6 30-4, 85969-1 #### [facility] CLIA [id number] [address] [place] [address] [place] Platelet mean volume (Bld) [Entitic vol] 10.2 fL Normal 9.0-12.7 [facility] Comment on above: Order Comment: Speci men Type: URINE SPECIMEN Ordering Facility: [facility] Address: [address] [place] [address] Performed By: #### 6 30-4, 62164-6 #### [facility] CLIA [id number] [address] [place] [address] [place] Platelets (Bld) [#/Vol] 258 10*3/uL Normal 150-400 [facility] Comment on above: Order Comment: Speci men Type: URINE SPECIMEN Ordering Facility: [facility] Address: [address] [place] [address] Performed By: #### 6 30-4, 84756-8 #### [facility] CLIA [id number] [address] [place] [address] [place] RBC (Bld) [#/Vol] 4.26 10*6/uL Normal 4.20-6.00 [facility] Comment on above: Order Comment: Speci men Type: URINE SPECIMEN Ordering Facility: [facility] Address: [address] [place], [place] [address] Performed By: #### 6 30-4, 51923-6 #### [facility] CLIA [id number] [address] [place] [address] [place] RED CELL MORPH Reviewed: unremarkable Normal [facility] Comment on above: Order Comment: Speci men Type: URINE SPECIMEN Ordering Facility: [facility] Address: [address] [place], [place] [address] Performed By: #### 6 30-4, 46298-6 #### [facility] CLIA [id number] [address] [place] [address] [place] WAM - ABS BASO 0.00 k/uL Normal <0.11 Ta[facility] gabriel Comment on above: Order Comment: Speci men Type: URINE SPECIMEN Ordering Facility: [facility] Address: [address] [place], [place] [address] Performed By: #### 6 30-4, 79525-6 #### [facility] CLIA [id number] [address] [place] [address] [place] WAM - ABS MONO 1.77 k/uL High <0.87 Tawn[facility] gabriel Comment on above: Order Comment: Speci men Type: URINE SPECIMEN Ordering Facility: [facility] Address: [address] [place] [address] Performed By: #### 6 30-4, 08599-6 #### [facility] CLIA [id number] [address] [place] [address] [place] WAM - MONO% 18.0 % Normal [facility] Comment on above: Order Comment: Speci men Type: URINE SPECIMEN Ordering Facility: [facility] Address: [address] [place], [place] [address] Performed By: #### 6 30-4, 73152-4 #### [facility] CLIA [id number] [address] [place] [address] [place] WAM ABSOLUTE NRBC <0.01 Normal <0.01 Tawny Balaji mckeon Comment on above: Order Comment: Speci men Type: URINE SPECIMEN Ordering Facility: [facility] Address: [address] [place], [place] [address] Performed By: #### 6 30-4, 49873-5 #### [facility] CLIA [id number] [address] [place] [address] [place] WBC (Bld) [#/Vol] 9.83 10*3/uL Normal 3.70-11.00 [facility] Comment on above: Order Comment: Speci men Type: URINE SPECIMEN Ordering Facility: [facility] Address: [address] [place], [place] [address] Performed By: #### 6 30-4, 91858-3 #### [facility] CLIA [id number] [address] [place] [address] OF [facility] ED NOTEon 11-07-2021 ED NOTE HNO ID: [id number] Author: Yoshi Schumacher RN Service: ? Author Type: Registered Nurse Type: ED Notes Filed: 11/07/2021 5:14 PM Note Text: Pt provided with discharged instructions. Medications gone over and all questions answered. Pt. Left with steady gait with friend for a ride. [facility] ED NOTE HNO ID: [id number] Author: Flaquita Donnelly RN Service: ? Author Type: Registered Nurse Type: ED Notes Filed: 11/07/2021 1:24 PM Note Text: Pt to ED for urinary retention. Pt had appointment with Urology on Wednesday, but was not able to be seen. Pt denies pain, but reports pressure in the bladder. Pt states he is not able to urinate completely and reports dribbling. [facility] ED PROV NOTEon 11-07-2021 ED PROV NOTE HNO ID: [id number] Author: Keely Gutierrez DO Service: Emergency Medicine [...] this Wednesday with his urologist out of [place] but was notified that his urologist had [...] Abnormal; Notable for the following components: Abs Toole 1.77 (*) <0.87 k/uL All other components [...] cysts one of which is mildly complex. Lens Examiner: LIANA Transcribe Date/Time: Nov 07 2021 2:57P [...] at th (more content not included)... Normal [facility] US KIDNEY/BLADDERon 11-08-19 US KIDNEY/BLADDER * * *Final Report* * * DATE OF EXAM: Nov 07 2021 2:52PM [facility] 1055 - US KIDNEY/BLADDER / PROCEDURE [...] cysts one of which is mildly complex. Lens Examiner: PSCB Transcribe Date/Time: Nov 07 2021 2:57P Dictated by : NEHEMIAS COLBERT MD This examination was interpreted and the report reviewed and electronically signed by: NEHEMIAS COLBERT MD on Nov 07 2021 3:09PM EST [id number] Normal [facility] Urinalysis complete panel (U )on 11-07-2021 Bilirubin Ql (U) Negative Normal Negative [facility] Comment on above: Order Comment: Speci men Type: URINE SPECIMEN Ordering Facility: [facility] Address: [address] [place] [address] Performed By: #### 6 30-4, 70787-1 #### [facility] CLIA [id number] [address] [place] [address] [place] Clarity (Unsp spec) Clear Normal Clear [facility] Comment on above: Order Comment: Speci men Type: URINE SPECIMEN Ordering Facility: [facility] Address: [address] [place] [address] Performed By: #### 6 30-4, 66619-2 #### [facility] CLIA [id number] [address] [place] [address] [place] Color (U) Yellow Normal Yellow [facility] Comment on above: Order Comment: Speci men Type: URINE SPECIMEN Ordering Facility: [facility] Address: [address] Performed By: #### 6 30-4, 03228-0 #### [facility] CLIA [id number] [address] [place] [address] [place] Epithelial cells LM.HPF (Urine sed) [#/Area] Few Normal [facility] Comment on above: Order Comment: Speci men Type: URINE SPECIMEN Ordering Facility: [facility] Address: [address] [place] [address] Performed By: #### 6 30-4, 64722-9 #### [facility] CLIA [id number] [address] [place] [address] [place] Glucose Test strip (U) [Mass/Vol] Negative Normal Negative [facility] Comment on above: Order Comment: Speci men Type: URINE SPECIMEN Ordering Facility: [facility] Address: [address] [place] [address] Performed By: #### 6 30-4, 13472-5 #### [facility] CLIA [id number] [address] [place] [address] [place] Hemoglobin Ql (U) Negative Normal Negative [facility] Comment on above: Order Comment: Speci men Type: URINE SPECIMEN Ordering Facility: [facility] Address: [address] [place] [address] Performed By: #### 6 30-4, 81332-2 #### [facility] CLIA [id number] [address] [place] [address] [place] Hyaline casts (Urine sed) [#/Area] 1-3 /LPF Abnormal 0 /LPF [facility] Comment on above: Order Comment: Speci men Type: URINE SPECIMEN Ordering Facility: [facility] Address: [address] [place] [address] Performed By: #### 6 30-4, 00303-7 #### [facility] CLIA [id number] [address] [place] [address] [place] Ketones Ql (U) Trace Abnormal Negative [facility] Comment on above: Order Comment: Speci men Type: URINE SPECIMEN Ordering Facility: [facility] Address: [address] [place] [address] Performed By: #### 6 30-4, 84177-8 #### [facility] CLIA [id number] [address] [place] [address] Leukocyte esterase Test strip Ql (U) Negative Normal Negative [facility] Comment on above: Order Comment: Speci men Type: URINE SPECIMEN Ordering Facility: [facility] Address: [address] [place] [address] Performed By: #### 6 30-4, 39811-2 #### [facility] CLIA [id number] [address] [place] [address] [place] Nitrite Ql (U) Negative Normal Negative [facility] Comment on above: Order Comment: Speci men Type: URINE SPECIMEN Ordering Facility: [facility] Address: [address] [place] [address] Performed By: #### 6 30-4, 75311-4 #### [facility] CLIA [id number] [address] [place] [address] [place] pH (U) 5.5 [pH] Normal 5.0-8.0 [facility] Comment on above: Order Comment: Speci men Type: URINE SPECIMEN Ordering Facility: [facility] Address: [address] [place] [address] Performed By: #### 6 30-4, 13061-4 #### [facility] CLIA [id number] [address] [place] [address] [place] Protein (U) [Mass/Vol] Negative Normal Negative [facility] Comment on above: Order Comment: Speci men Type: URINE SPECIMEN Ordering Facility: [facility] Address: [address] [place] [address] Performed By: #### 6 30-4, 31043-6 #### [facility] CLIA [id number] [address] [place] [address] [place] RBC LM.HPF (Urine sed) [#/Area] 0-3 /HPF Normal 0-3 /HPF [facility] Comment on above: Order Comment: Speci men Type: URINE SPECIMEN Ordering Facility: [facility] Address: [address] [place] [address] Performed By: #### 6 30-4, 61152-2 #### [facility] CLIA [id number] [address] [place] [address] [place] Specific gravity (U) [Rel density] 1.024 Normal 1.005-1.030 [facility] Comment on above: Order Comment: Speci men Type: URINE SPECIMEN Ordering Facility: [facility] Address: [address] [place] [address] Performed By: #### 6 30-4, 58584-4 #### [facility] CLIA [id number] [address] [place] [address] [place] Urobilinogen Ql (U) 0.2 EU/dL Normal 0.2-1.0 EU/dL [facility] Comment on above: Order Comment: Speci men Type: URINE SPECIMEN Ordering Facility: [facility] Address: [address] [place] [address] Performed By: #### 6 30-4, 77787-0 #### [facility] CLIA [id number] [address] [place] [address] [place] WBC LM.HPF (Urine sed) [#/Area] 0-5 /HPF Normal 0-5 /HPF [facility] Comment on above: Order Comment: Speci men Type: URINE SPECIMEN Ordering Facility: [facility] Address: [address] [place] [address] Performed By: #### 6 30-4, 42384-7 #### [facility] CLIA [id number] [address] [place] [address] [place] Ambulatory Visit Summaryon 0 10-28-2021 Ambulatory Visit Summary NORBERTO WASHINGTON :1940 Visit Date:10/28/2021 Ambulatory Visit Instructions Your Diagnosis BPH with urinary obstruction Nocturia Post-void dribbling Incomplete emptying of bladder Urinary incontinence Tests Performed Urnls Dip Stick Auto w/o Microscopy POC 40999 Your Care Team Attending Physician - Paul [...] Where: [facility] [address], [place] [address]- Medications What How Much When Instructions Unchanged [...] Urnls Dip Stick Auto w/o Microscopy POC 42658 (10/28/2021) Bilirubin Urine Dipstick - Negative Blood Urine Dipstick - Negative Glucose Urine Dipstick - Negative Ketones Urine Dipstick - Negative Leukocytes Urine Dipstick - Negative Nitrite Urine Dipstick - Negative Protein Urine Dipstick - Negative Specific Mccaskill Urine Dipstick - 1.015 Urine Appearance Urine [...] ? Urina (more content not included)... Normal [facility] Patient Educationon 10-29-19 Patient Education Urology [...] Follow these instructions at home: ? Take addu-rbk-fgxjies and prescription medicines only as told by [...] You d (more content not included)... Normal [facility] Office/Clinic Noteon 10-28-2021 Urology Office/Clinic [...] obstruction, microscopic hematuria, nocturia, dysuria. S/P TURP 10/02//09/20/19, Cysto/UD done on 07/27/19. PVR was 210ml. [...] urine and/or bladder capacity by US- non-imaging 91575 PSA Total Urnls Dip Stick Auto w/o Microscopy POC 84193 Urology Procedure Order 2. Nocturia (R35.1: Nocturia) moderate, Variable 2-5 times per night Ordered: Measure Post Void residual urine and/or bladder capacity by US- non-imaging 04505 PSA Total Urology Procedure Order 3. Post-void dribbling (N39.43: Post-v (more content not included)... Normal [facility] Comment on above: Result Comment: Elec tronically Signed By: Billy Connolly MD, Paul Valdes\.br\Date and Time Signed: 10/28/21 08:47 EDT\.br\Electronically Co-Signed By: Jessie Rivera\.br\Date and Time Co-Signed: 10/28/21 08:39 EDT MICROALBUMIN URINEon 022 Albumin, Urine 5.6 ug/mL Normal Not Estab. [facility] Comment on above: Performed By: #### M ALBLC #### [facility] [address] [place] [address] Dr. Juan Pablo Kaminski US CAROTID ART [...] SAMY TORRES Date: 2021-10-23 17:19 Normal [facility] CBC AUTO DIFFon 10-21-2021 BASO # 0.0 103/ul Normal 0.0-0.1 [facility] Comment on above: Performed By: #### A 1C #### [facility] [address] [place] [address] Dr. Juan Pablo Kaminski Basophils/100 WBC (Bld) 0.5 % Normal 0.2-2.0 [facility] Comment on above: Performed By: #### A 1C #### [facility] [address] [place] [address] Dr. Juan Pablo Kaminski EO # 0.3 103/ul Normal 0.0-0.7 [facility] Comment on above: Performed By: #### A 1C #### [facility] [address] [place] [address] Dr. Juan Pablo Kaminski Eosinophils/100 WBC (Bld) 3.6 % Normal 0.9-7.0 [facility] Comment on above: Performed By: #### A 1C #### [facility] [address] [place] [address] Dr. Juan Pablo Kaminski Erythrocyte distribution width (RBC) [Ratio] 11.1 % Normal 11.0-15.0 [facility] Comment on above: Performed By: #### A 1C #### [facility] [address] [place] [address] Dr. Juan Pablo Kaminski Hematocrit (Bld) [Volume fraction] 41.8 % Critically low 42.0-54.0 [facility] Comment on above: Performed By: #### A 1C #### [facility] [address] [place] [address] Dr. Juan Pablo Kaminski Hemoglobin (Bld) [Mass/Vol] 14.1 g/dL Normal 14.0-18.0 [facility] Comment on above: Performed By: #### A 1C #### [facility] [address] [place] [address] Dr. Juan Pablo Kaminski IG # 0.03 10e3/ul Normal 0.00-0.03 [facility] Comment on above: Performed By: #### A 1C #### [facility] [address] [place] [address] Dr. Juan Pablo Kaminski IG % 0.4 % Normal 0.0-0.5 [facility] Comment on above: Performed By: #### A 1C #### [facility] [address] [place] [address] Dr. Juan Pablo Kaminski LYMPH # 2.2 103/ul Normal 1.2-3.8 [facility] Comment on above: Performed By: #### A 1C #### [facility] [address] [place] [address] Dr. Juan Pablo Kaminski Lymphocytes/100 WBC (Bld) 29.4 % Normal 20.5-60.0 [facility] Comment on above: Performed By: #### A 1C #### [facility] [address] [place] [address] Dr. Juan Pablo Kaminski MANUAL DIFF REQ NO Normal [facility] Comment on above: Performed By: #### A 1C #### [facility] [address] [place] [address] Dr. Juan Pablo Kaminski MCH (RBC) [Entitic mass] 31.8 pg Normal 25.9-34.0 [facility] Comment on above: Performed By: #### A 1C #### [facility] [address] [place] [address] Dr. Juan Pablo Kaminski MCHC (RBC) [Mass/Vol] 33.7 g/dL Normal 29.9-35.2 [facility] Comment on above: Performed By: #### A 1C #### [facility] [address] [place] [address] Dr. Juan Pablo Kaminski MCV (RBC) [Entitic vol] 94.1 fL Critically high 80.0-94.0 [facility] Comment on above: Performed By: #### A 1C #### [facility] [address] [address] [address] Juan Pablo Kaminski MONO # 0.9 103/ul Critically high 0.3-0.8 [facility] Comment on above: Performed By: #### A 1C #### [facility] [address] [address] [address] Juan Pablo Kaminski Monocytes/100 WBC (Bld) 11.7 % Normal 1.7-12.0 [facility] Comment on above: Performed By: #### A 1C #### [facility] [address] [place] [address] Dr. Juan Pablo Kaminski NEUT # 4.0 103/ul Normal 1.4-6.5 [facility] Comment on above: Performed By: #### A 1C #### [facility] [address] [place] [address] Dr. Juan Pablo Kaminski Neutrophils/100 WBC (Bld) 54.4 % Normal 43.0-75.0 [facility] Comment on above: Performed By: #### A 1C #### [facility] [address] [place] [address] Dr. Juan Pablo Kaminski Platelet mean volume (Bld) [Entitic vol] 8.6 fL Critically low 9.5-13.5 [facility] Comment on above: Performed By: #### A 1C #### [facility] [address] [place] [address] Dr. Juan Pablo Kaminski PLT 231 103/ul Normal 150-450 [facility] Comment on above: Performed By: #### A 1C #### [facility] [address] [place] [address] Dr. Juan Pablo Kaminski RBC 4.44 106/ul Critically low 4.70-6.10 The [facility] Comment on above: Performed By: #### A 1C #### [facility] [address] [place] [address] Dr. Juan Pablo Kaminski WBC 7.3 103/ul Normal 4.0-11.0 [facility] Comment on above: Performed By: #### A 1C #### [facility] [address] [place] [address] Dr. Juan Pablo Kaminski DIRECT LDLon 10-21-2021 Cholesterol in LDL [Mass/Vol] 106 mg/dL Normal [facility] Comment on above: Performed By: #### A LT, BMP, DLDL #### [facility] [address] [place] [address] Dr. Juan Pablo Kaminski DLDL NORMAL SEE BELOW Normal [facility] Comment on above: Result Comment: <100 mg/dl OPTIMAL 100 - 129 mg/dl NEAR OR ABOVE OPTIMAL 130 - 159 mg/dl BORDERLINE HIGH 160 - 189 mg/dl HIGH >190 mg/dl VERY HIGH Performed By: #### A LT, BMP, DLDL #### [facility] [address] [place] [address] Dr. Juan Pablo Kaminski GLYCOHEMOGLOBIN A1Con 2021 ADA RECOMMENDATION SEE BELOW Normal [facility] Comment on above: Result Comment: ADA RECOMMENDED LIMIT 4.0 - 6.0 ADA THERAPEUTIC TARGET < 7.0 ACTION SUGGESTED > 7.0 Performed By: #### A 1C #### [facility] [address] [place] [address] Dr. Juan Pablo Kaminski Glucose [Mass/Vol] 120 mg/dL Normal [facility] Comment on above: Performed By: #### A 1C #### [facility] [address] [place] [address] Dr. Juan Pablo Kaminski HbA1c (Bld) [Mass fraction] 5.8 % Normal 4.5-6.2 [facility] Comment on above: Performed By: #### A 1C #### [facility] [address] [place] [address] Dr. Juan Pablo Kaminski PROF CHEM 8 (BAS METB)on Anion gap [Moles/Vol] 12.7 mmol/L Normal [facility] Comment on above: Performed By: #### A 1C #### [facility] [address] [place] [address] Dr. Juan Pablo Kaminski Calcium [Mass/Vol] 8.7 mg/dL Normal 8.5-10.1 [facility] Comment on above: Performed By: #### A 1C #### [facility] [address] [place] [address] Dr. Juan Pablo Kaminski Chloride [Moles/Vol] 98 mmol/L Normal 98-107 [facility] Comment on above: Performed By: #### A 1C #### [facility] [address] [place] [address] Dr. Juan Pablo Kaminski CO2 [Moles/Vol] 28.0 mmol/L Normal 21.0-32.0 [facility] Comment on above: Performed By: #### A 1C #### [facility] [address] [place] [address] Dr. Juan Pablo Kaminski Creatinine [Mass/Vol] 1.07 mg/dL Normal 0.70-1.30 [facility] Comment on above: Performed By: #### A 1C #### [facility] [address] [place] [address] Dr. Juan Pablo Kaminski EGFR-AF CHILEAN >60 Normal >=60 [facility] Comment on above: Performed By: #### A 1C #### [facility] [address] [place] [address] Dr. Juan Pablo Kaminski EGFR-NON AF CHILEAN >60 Normal >=60 [facility] Comment on above: Performed By: #### A 1C #### [facility] [address] [place] [address] Dr. Juan Pablo Kaminski Glucose [Mass/Vol] 133 mg/dL Critically high 74-106 [facility] Comment on above: Performed By: #### A 1C #### [facility] [address] [place] [address] Dr. Juan Pablo Kaminski Potassium [Moles/Vol] 4.7 mmol/L Normal 3.5-5.1 [facility] Comment on above: Performed By: #### A 1C #### [facility] [address] [place] [address] Dr. Juan Pablo Kaminski Sodium [Moles/Vol] 134 mmol/L Critically low 136-145 [facility] Comment on above: Performed By: #### A 1C #### [facility] [address] [place] [address] Dr. Juan Pablo Kaminski Urea nitrogen [Mass/Vol] 17.0 mg/dL Normal 7.0-18.0 [facility] Comment on above: Performed By: #### A 1C #### [facility] [address] [place] [address] Dr. Juan Pablo Kaminski Urea nitrogen/Creatinine [Mass ratio] 15.9 mg/mg Normal [facility] Comment on above: Performed By: #### A 1C #### [facility] [address] [place] [address] Dr. Juan Pablo Kaminski SGPTon 10-21-2021 ALT [Catalytic activity/Vol] 31 U/L Normal 16-63 [facility] Comment on above: Performed By: #### A 1C #### [facility] [address] [place] [address] Dr. Juan Pablo Kaminski GLYCOHEMOGLOBIN A1Con 2021 ADA RECOMMENDATION SEE BELOW Normal [facility] Comment on above: Result Comment: ADA RECOMMENDED LIMIT 4.0 - 6.0 ADA THERAPEUTIC TARGET < 7.0 ACTION SUGGESTED > 7.0 Performed By: #### A 1C #### [facility] [address] [place] [address] Dr. Juan Pablo Kaminski Glucose [Mass/Vol] 131 mg/dL Normal [facility] Comment on above: Performed By: #### A 1C #### [facility] [address] [place] [address] Dr. Juan Pablo Kaminski HbA1c (Bld) [Mass fraction] 6.2 % Normal 4.5-6.2 [facility] Comment on above: Performed By: #### A 1C #### [facility] [address] [place] [address] Dr. Juan Pablo Kaminski Vital Signs Date Time Vital Sign Value Performing Clinician Denis coles 04-21-2023 14:30-0500 Body height 190.5 cm Campbell Naranjo Other [facility] Other 04-21-2023 14:30-0500 Body mass index (BMI) [Ratio] 28.07 kg/m2 Campbell Ball Other [facility] Other 04-21-2023 14:30-0500 Body weight 101.88 kg Campbell Ball Other [facility] Other 04-21-2023 14:30-0500 Diastolic blood pressure 68 mm[Hg] Campbell Ball Other [facility] Other 04-21-2023 14:30-0500 Respiratory rate 12 /min Campbell Ball Other [facility] Other 04-21-2023 14:30-0500 Systolic blood pressure 129 mm[Hg] Campbell Ball Other [facility] Other 03-17-2023 10:30-0500 Body height 190.5 cm Campbell Ball Other [facility] Other 03-17-2023 10:30-0500 Body mass index (BMI) [Ratio] 27.55 kg/m2 Campbell Ball Other [facility] Other 03-17-2023 10:30-0500 Body weight 99.97 kg Campbell Ball Other [facility] Other 03-17-2023 10:30-0500 Diastolic blood pressure 67 mm[Hg] Campbell Ball Other [facility] Other 03-17-2023 10:30-0500 Respiratory rate 12 /min Cmapbell Ball Other [facility] Other 03-17-2023 10:30-0500 Systolic blood pressure 159 mm[Hg] Campbell Ball Other [facility] Other 02-23-2023 09:30-0500 Body height 190.5 cm Campbell Ball Other [facility] Other 02-23-2023 09:30-0500 Body mass index (BMI) [Ratio] 28.02 kg/m2 Campbell Ball Other [facility] Other 02-23-2023 09:30-0500 Body weight 101.7 kg Campbell Ball Other [facility] Other 02-23-2023 09:30-0500 Diastolic blood pressure 78 mm[Hg] Campbell Ball Other [facility] Other 02-23-2023 09:30-0500 Respiratory rate 12 /min Campbell Ball Other [facility] Other 02-23-2023 09:30-0500 Systolic blood pressure 157 mm[Hg] Campbell Ball Other [facility] Other 02-19-2023 10:45-0500 Body height 190.5 cm Campbell Ball Other [facility] Other 02-19-2023 10:45-0500 Body mass index (BMI) [Ratio] 28 kg/m2 Campbell Ball Other [facility] Other 02-19-2023 10:45-0500 Body weight 101.61 kg Campbell Ball Other [facility] Other 02-19-2023 10:45-0500 Diastolic blood pressure 72 mm[Hg] Campbell Ball Other [facility] Other 02-19-2023 10:45-0500 Respiratory rate 12 /min Campbell Ball Other [facility] Other 02-19-2023 10:45-0500 Systolic blood pressure 144 mm[Hg] Campbell Ball Other [facility] Other 02-02-2023 13:37-0500 Body weight 102.06 kg Leticia Rukhsana [employer]L D RN Work Phone: [facility] 02-02-2023 13:37-0500 Diastolic blood pressure 70 mm[Hg] Leticia [place] [employer].L D RN Work Phone: [facility] 02-02-2023 13:37-0500 Heart rate 65 /min Leticia Rukhsana [employer].L D RN Work Phone: [facility] 02-02-2023 13:37-0500 Systolic blood pressure 146 mm[Hg] Leticia [place] [employer].L D RN Work Phone: [facility] 09-22-2022 12:15-0400 Body height 190.5 cm Campbell Ball Other [facility] Other 09-22-2022 12:15-0400 Diastolic blood pressure 82 mm[Hg] Campbell Ball Other [facility] Other 09-22-2022 12:15-0400 Systolic blood pressure 135 mm[Hg] Campbell Ball Other [facility] Other 09-17-2022 09:00-0400 Body height 190.5 cm Campbell Ball Other [facility] Other 09-17-2022 09:00-0400 Body mass index (BMI) [Ratio] 27.57 kg/m2 Campbell Ball Other [facility] Other 09-17-2022 09:00-0400 Body weight 100.06 kg Campbell Ball Other [facility] Other 09-17-2022 09:00-0400 Diastolic blood pressure 62 mm[Hg] Campbell Ball Other [facility] Other 09-17-2022 09:00-0400 Respiratory rate 12 /min Campbell Ball Other [facility] Other 09-17-2022 09:00-0400 Systolic blood pressure 128 mm[Hg] Campbell Ball Other [facility] Other 06-18-2022 10:00-0400 Body height 190.5 cm Campbell Ball Other [facility] Other 06-18-2022 10:00-0400 Body mass index (BMI) [Ratio] 28.02 kg/m2 Campbell Ball Other [facility] Other 06-18-2022 10:00-0400 Body weight 101.7 kg Campbell Ball Other [facility] Other 06-18-2022 10:00-0400 Diastolic blood pressure 62 mm[Hg] Campbell Ball Other [facility] Other 06-18-2022 10:00-0400 Respiratory rate 12 /min Campbell Ball Other [facility] Other 06-18-2022 10:00-0400 Systolic blood pressure 119 mm[Hg] Campbell Ball Other [facility] Other 04-08-2022 12:00-0500 Body height 190.5 cm Campbell Ball Other [facility] Other 04-08-2022 12:00-0500 Body mass index (BMI) [Ratio] 27.82 kg/m2 Campbell Ball Other [facility] Other 04-08-2022 12:00-0500 Body temperature 97.1 [degF] Campbell Ball Other [facility] Other 04-08-2022 12:00-0500 Body weight 100.97 kg Campbell Ball Other [facility] Other 04-08-2022 12:00-0500 Diastolic blood pressure 68 mm[Hg] Campbell Ball Other [facility] Other 04-08-2022 12:00-0500 SaO2% (BldA) [Mass fraction] 97 % Campbell Ball Other [facility] Other 04-08-2022 12:00-0500 Systolic blood pressure 124 mm[Hg] Campbell Ball Other [facility] Other 03-20-2022 10:00-0500 Body height 190.5 cm Campbell Ball Other [facility] Other 03-20-2022 10:00-0500 Body mass index (BMI) [Ratio] 27.95 kg/m2 Campbell Ball Other [facility] Other 03-20-2022 10:00-0500 Body weight 101.42 kg Campbell Ball Other [facility] Other 03-20-2022 10:00-0500 Diastolic blood pressure 60 mm[Hg] Campbell Ball Other [facility] Other 03-20-2022 10:00-0500 Respiratory rate 12 /min Campbell Ball Other [facility] Other 03-20-2022 10:00-0500 Systolic blood pressure 112 mm[Hg] Campbell Ball Other [facility] Other 01-08-2022 08:47-0400 Body weight 97.52 kg Leonard Dugan MD Work Phone: [facility] 01-08-2022 08:47-0400 Diastolic blood pressure 61 mm[Hg] Leonard Dugan MD Work Phone: [facility] 01-08-2022 08:47-0400 Heart rate 72 /min Leonard Dugan MD Work Phone: [facility] 01-08-2022 08:47-0400 Systolic blood pressure 139 mm[Hg] Leonard Dugan MD Work Phone: [facility] 12-26-2021 08:32-0400 Body temperature 98 [degF] DO Campbell Ball Work Phone: [facility] 12-26-2021 08:32-0400 Diastolic blood pressure 62 mm[Hg] DO Campbell Ball Work Phone: [facility] 12-26-2021 08:32-0400 Heart rate 75 /min DO Campbell Ball Work Phone: [facility] 12-26-2021 08:32-0400 Respiratory rate 18 /min DO Campbell Ball Work Phone: [facility] 12-26-2021 08:32-0400 SaO2% (BldA) [Mass fraction] 98 % DO Campbell Ball Work Phone: [facility] 12-26-2021 08:32-0400 Systolic blood pressure 146 mm[Hg] DO Campbell Ball Work Phone: [facility] 12-17-2021 16:22-0400 Body height 190.5 cm DO Campbell Ball Work Phone: [facility] 12-17-2021 16:22-0400 Body weight 97.52 kg DO Campbell Ball Work Phone: [facility] 12-17-2021 16:19-0400 Body temperature 98.4 [degF] DO Campbell Ball Work Phone: [facility] 12-17-2021 16:19-0400 Diastolic blood pressure 63 mm[Hg] DO Campbell Ball Work Phone: [facility] 12-17-2021 16:19-0400 Heart rate 66 /min DO Campbell Ball Work Phone: [facility] 12-17-2021 16:19-0400 Respiratory rate 16 /min DO Campbell Ball Work Phone: [facility] 12-17-2021 16:19-0400 SaO2% (BldA) [Mass fraction] 96 % DO Campbell Ball Work Phone: [facility] 12-17-2021 16:19-0400 Systolic blood pressure 135 mm[Hg] DO Campbell Ball Work Phone: [facility] 12-16-2021 14:41-0400 Diastolic blood pressure 62 mm[Hg] Leonard Dugan MD Work Phone: [facility] 12-16-2021 14:41-0400 Heart rate 69 /min Leonard Dugan MD Work Phone: [facility] 12-16-2021 14:41-0400 Respiratory rate 16 /min Leonard Dugan MD Work Phone: [facility] 12-16-2021 14:41-0400 Systolic blood pressure 141 mm[Hg] Leonard Dugan MD Work Phone: [facility] 12-11-2021 18:25-0400 Body temperature 97.5 [degF] DO Campbell Ball Work Phone: [facility] 12-11-2021 18:25-0400 Diastolic blood pressure 88 mm[Hg] DO Campbell Ball Work Phone: [facility] 12-11-2021 18:25-0400 Heart rate 67 /min DO Campbell Ball Work Phone: [facility] 12-11-2021 18:25-0400 Respiratory rate 20 /min DO Campbell Ball Work Phone: [facility] 12-11-2021 18:25-0400 SaO2% (BldA) [Mass fraction] 99 % DO Campbell Ball Work Phone: [facility] 12-11-2021 18:25-0400 Systolic blood pressure 175 mm[Hg] DO Campbell Ball Work Phone: [facility] 12-11-2021 16:57-0400 Body height 190.5 cm DO Campbell Ball Work Phone: [facility] 12-11-2021 16:57-0400 Body weight 98.5 kg DO Campbell Ball Work Phone: [facility] 12-10-2021 10:50-0400 Body weight 95.25 kg Nurse Emelia Work Phone: [facility] 12-10-2021 10:50-0400 Diastolic blood pressure 80 mm[Hg] Nurse Emelia Work Phone: [facility] 12-10-2021 10:50-0400 Heart rate 59 /min Nurse Emelia Work Phone: [facility] 12-10-2021 10:50-0400 Systolic blood pressure 152 mm[Hg] Nurse Emelia Work Phone: [facility] 12-09-2021 14:27-0400 Body weight 95.25 kg [employer] [place] Work Phone: [facility] 12-09-2021 14:27-0400 Diastolic blood pressure 68 mm[Hg] [employer] [place] Work Phone: [facility] 12-09-2021 14:27-0400 Heart rate 70 /min [employer] [place] Work Phone: [facility] 12-09-2021 14:27-0400 Systolic blood pressure 164 mm[Hg] [employer] [place] Work Phone: [facility] 11-12-2021 11:23-0400 Body weight 96.16 kg Leonard Dugan MD Work Phone: [facility] 11-12-2021 11:23-0400 Diastolic blood pressure 73 mm[Hg] Leonard Dugan MD Work Phone: [facility] 11-12-2021 11:23-0400 Heart rate 56 /min Leonard Dugan MD Work Phone: [facility] 11-12-2021 11:23-0400 Systolic blood pressure 162 mm[Hg] Leonard Dugan MD Work Phone: [facility] Encounters Encounter Date Encounter Type Care Provider Facility Start: 05-15-2023 End: 05-15-2023 Emergency department patient visit Campbell Naranjo Facility:[facility] Start: 04-21-2023 End: 04-21-2023 ambulatory Campbell Naranjo Other [facility] Other Start: 04-21-2023 Transitional care manage srvc 14 day discharge Campbell Naranjo [facility] Start: 04-19-2023 End: 04-19-2023 ambulatory Campbell Naranjo Other [facility] Other Start: 04-19-2023 Telephone encounter Campbell Naranjo [facility] Start: 04-15-2023 End: 04-15-2023 ambulatory Campbell Naranjo Other [facility] Other Start: 04-15-2023 Telephone encounter Campbell Naranjo [facility] Start: 03-17-2023 End: 03-17-2023 ambulatory Campbell Naranjo Other [facility] Other Start: 03-17-2023 Transitional care manage srvc 14 day discharge Campbell Naranjo [facility] Start: 03-04-2023 End: 03-04-2023 ambulatory Campbell Naranjo Other [facility] Other Start: 03-04-2023 Telephone encounter Campbell Naranjo [facility] Start: 02-23-2023 End: 02-23-2023 ambulatory Campbell Naranjo Other [facility] Other Start: 02-23-2023 Office outpatient vi sit 15 minutes Campbell Naranjo [facility] Start: 02-23-2023 Telephone encounter Campbell SINGH [facility] Start: 02-19-2023 End: 02-19-2023 ambulatory Campbell Naranjo Other [facility] Other Start: 02-19-2023 Office outpatient vi sit 15 minutes Campbell Naranjo [facility] Start: 02-02-2023 End: 02-02-2023 ambulatory LETICIA MILIAN Facility:[facility] Start: 02-02-2023 End: 02-02-2023 Patient encounter procedure Leticia Milian [employer].L D RN Work Phone: Urology Comment on above: BPH with obstruction /lower urinary tract symptoms (Primary Dx); Recurrent UTI; Weak urinary stream Start: 01-19-2023 End: 01-19-2023 ambulatory LETICIA MILIAN Facility:[facility] Start: 01-13-2023 End: 01-13-2023 Emergency department patient visit Low Carter Facility:[facility] Start: 01-13-2023 End: 01-13-2023 Emergency department patient visit DO Campbell Naranjo Work Phone: [facility] Work Phone: Start: 12-21-2022 End: 12-21-2022 ambulatory Campbell Naranjo Other [facility] Other Start: 12-21-2022 Telephone encounter Campbell Naranjo [facility] Start: 09-22-2022 End: 09-22-2022 ambulatory Campbell Naranjo Other [facility] Other Start: 09-22-2022 Office outpatient vi sit 15 minutes Campbell Naranjo [facility] Start: 09-20-2022 End: 09-20-2022 ambulatory Cornell Baptiste Other [facility] Other Start: 09-20-2022 Encounter by gabbi Baptiste [facility] Start: 09-17-2022 End: 09-17-2022 ambulatory Campbell Naranjo Other [facility] Other Start: 09-17-2022 Office outpatient vi sit 25 minutes Campbell Naranjo [facility] Start: 09-15-2022 End: 09-15-2022 ambulatory Cornell Baptiste Other [facility] Other Start: 09-15-2022 Encounter by gabbi Baptiste [facility] Start: 07-28-2022 End: 07-28-2022 ambulatory LETICIA MILIAN Facility:[facility] Start: 07-20-2022 End: 07-20-2022 ambulatory LETICIA MILIAN Facility:[facility] Start: 06-25-2022 End: 06-26-[address] CAMPBELL NARANJO Facility:[facility] Start: 06-18-2022 End: 06-18-2022 ambulatory Campbell Naranjo Other [facility] Other Start: 06-18-2022 Office outpatient vi sit 25 minutes Campbell Naranjo [facility] Start: 06-02-2022 End: 06-03-[address] CAMPBELL NARANJO Facility:[facility] Start: 04-08-2022 End: 04-08-2022 ambulatory Campbell Naranjo Other [facility] Other Start: 04-08-2022 Office outpatient vi sit 15 minutes Campbell Naranjo [facility] Start: 03-24-2022 End: 03-24-2022 ambulatory Campbell Naranjo Other [facility] Other Start: 03-24-2022 Telephone encounter Campbell Naranjo [facility] Start: 03-20-2022 Office outpatient vi sit 25 minutes Campbell Naranjo [facility] Start: 03-20-2022 End: 03-21-[address] CAMPBELL NARANJO [facility] Other Start: 01-08-2022 End: 01-08-2022 Patient encounter procedure Leonard Dugan MD Work Phone: Urology Comment on above: Chronic epididymitis (Primary Dx); Left hydrocele; Weak urinary stream; BPH without obstruction/lower urinary tract symptoms; Epididymitis Start: 01-07-2022 Refill Leonard Dugan MD Work Phone: Urology Comment on above: Refill Request Start: 12-26-2021 End: 12-26-2021 ambulatory DO Campbell Naranjo Work Phone: [facility] Work Phone: Start: 12-26-2021 End: 12-26-2021 Discharged Recurring DO Campbell Naranjo Work Phone: [facility] Start: 12-25-2021 End: 12-26-[address] CAMPBELL NARANJO Facility:[facility] Start: 12-17-2021 End: 12-17-2021 Emergency department patient visit DO Campbell Naranjo Work Phone: [facility] Start: 12-16-2021 End: 12-16-2021 Patient encounter procedure Leonard Dugan MD Work Phone: Urology Comment on above: Retention of urine ( Primary Dx); Flaccid bladder Start: 12-15-2021 Telephone encounter Leticia puentes APRN.CNP Work Phone: Urology Comment on above: Patient Update Start: 12-11-2021 End: 12-11-2021 Emergency department patient visit DO Campbell Naranjo Work Phone: [facility] Start: 12-11-2021 Telephone encounter Leonard Dugan MD Work Phone: Urology Comment on above: Patient Update Start: 12-10-2021 End: 12-10-2021 Nursing evaluation of patient and report Nurse [facility] Work Phone: Urology Comment on above: Urinary tract infect ion without hematuria, site unspecified (Primary Dx); Feeling of incomplete bladder emptying; Benign prostatic hyperplasia with urinary retention Start: 12-09-2021 End: 12-09-2021 Nursing evaluation of patient and report [employer] [place] Work Phone: Urology Comment on above: Urinary frequency (P rimary Dx); Urinary urgency; Urinary straining; Feeling of incomplete bladder emptying Start: 12-08-2021 Telephone encounter Leonard Dugan MD Work Phone: Urology Comment on above: Appointment (Resched ule catheter change) Start: 11-26-2021 End: 11-27-2021 Emergency department patient visit CAMPBELL NARANJO Facility:[facility] Start: 11-21-2021 Telephone encounter Leonard Dugan [...] Emergency department patient visit RAN LEES JR Facility:[facility] Start: 10-23-2021 End: 10-24-[address] CAMPBELL NARANJO Facility:[facility] Start: 10-21-2021 End: 10-22-[address] CAMPBELL NARANJO Facility:[facility] Start: 10-20-2021 Adult health examination Campbell Naranjo Other [facility] Other Start: 07-17-2021 End: 07-18-[address] CAMPBELL NARANJO Facility:[facility] Start: 01-09-2020 End: 01-09-2020 Pre-procedure evaluation check Campbell Naranjo Other [facility] Other Procedures Date Procedure Procedure Detail Performing Clinician Start: 10-14-2021 Depression screening Be juarez Naranjo Other Start: 03-23-2016 Screening for malign ant neoplasm of colon Campbell Naranjo Other Start: 01-30-2015 Screening for malign ant neoplasm of prostate Campbell Ball Other Urine culture DO Campbell abbott Work Phone: Urine culture DO Campbell abbott Work Phone: Urine culture DO Campbell abbott Work Phone: Plan of Treatment Date Care Activity Detail Author Start: 12-28-2022 Urine microalbumin profile DTaP,Tdap,Td Vaccine (3 - Tdap) [facility] Start: 11-13-2022 Covid-19 Vaccine () Covid-19 Vaccine () [facility] Start: 03-15-2022 Advance Directive Discussion Advance Directive Discussion [facility] Start: 03-15-2022 Depression Assessment Depression Ass essment [facility] Start: 01-08-2022 End: 03-10-2022 Bacteria identified in Urine by Culture URINE CULTURE Microbiology Routine Left hydrocele Chronic epididymitis Weak urinary stream BPH without obstruction/lower urinary tract symptoms Epididymitis Expected: 01/08/2022 (Approximate), Expires: 03/10/2022 [facility] Work Phone: Comment on above: Expected: 01/08/2022 (Approximate), Expires: 03/10/2022 Start: 01-08-2022 End: 03-10-2022 URINALYSIS, REFLEX MICROSCOPIC URINALYSIS, REFLEX MICROSCOPIC Lab Routine Left hydrocele Chronic epididymitis Weak urinary stream BPH without obstruction/lower urinary tract symptoms Epididymitis Expected: 01/08/2022 (Approximate), Expires: 03/10/2022 [facility] Work Phone: Comment on above: Expected: 01/08/2022 (Approximate), Expires: 03/10/2022 Start: 12-10-2021 End: 02-09-2022 Bacteria identified in Urine by Culture URINE CULTURE Microbiology Routine Urinary tract infection without hematuria, site unspecified Expected: 12/10/2021, Expires: 02/09/2022 [facility] Work Phone: Comment on above: Expected: 12/10/2021 , Expires: 02/09/2022 Start: 11-13-2021 Influenza vaccination INFLUENZA (#1) [facility] Start: 11-12-2021 URODYNAMICS URODYNAMICS Pr ocedures Routine 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 Expected: 11/12/2021 (Approximate) [facility] Work Phone: Comment on above: Expected: 11/12/2021 (Approximate) Start: 08-11-2021 COVID-19 VACCINE (5 - Booster for Pfizer series) COVID-19 VACCINE (5 - Booster for Pfizer series) [facility] Start: 03-15-2021 ADVANCE DIRECTIVE DISCUSSION ADVANCE DIRECTIVE DISCUSSION [facility] Start: 03-15-2021 DEPRESSION ASSESSMENT DEPRESSION ASS ESSMENT [facility] Start: 05-26-2012 3 comp foot exam completed DIABETIC FOOT EXAM [facility] Start: 1998 Hepatitis B Vaccine (1 of 3 - Risk 3-dose series) Hepatitis B Vaccine (1 of 3 - Risk 3-dose series) [facility] Start: 1998 RSV Vaccine (1 - 1-d ose 60+ series) RSV Vaccine (1 - 1-dose 60+ series) [facility] Start: 1988 SHINGRIX VACCINE (1 of 2) SHINGRIX VACCINE (1 of 2) [facility] Start: 1957 Urine microalbumin profile DTAP,TDAP,TD (1 - Tdap) [facility] Start: 1956 Hepatitis B surface antibody level LDL CHOLESTEROL [facility] Start: 1948 Hepatitis B screening URINE ALBUMIN:CREATININE RATIO [facility] Start: 1948 Hepatitis C antibody , confirmatory test DILATED RETINAL EXAM [facility] Start: 1944 PNEUMOCOCCAL: 65+ (1 - PCV) PNEUMOCOCCAL: 65+ (1 - PCV) [facility] Start: 1943 Hemoglobin A1c/Hemoglobin.total in Blood HBA1C [facility] Bacteria identified in Urine by Culture [facility] End: 02-02-2024 Bacteria identified in Urine by Culture URINE CULTURE Microbiology Routine Recurrent UTI 5 Occurrences starting 02/02/2023 until 02/02/2024 [facility] Work Phone: Comment on above: 5 Occurrences starti ng 02/02/2023 until 02/02/2024 Patient Education [facility] Work Phone: Patient referral [facility] Work Phone: End: 01-14-2024 Urinalysis complete panel - Urine URINALYSIS, WITH MICROSCOPIC Lab Routine Recurrent UTI 5 Occurrences starting 02/02/2023 until 01/14/2024 [facility] Work Phone: Comment on above: 5 Occurrences starti ng 02/02/2023 until 01/14/2024 [facility] Immunizations Immunization Date Immunization Notes Care Provider Fa [place] 12-01-2022 influenza, high dose seasonal, preservative-free Campbell Naranjo Other MD Lingo Other 12-19-2021 influenza virus vaccine, split virus (incl. purified surface antigen) Campbell Naranjo Other MD Lingo Other 12-10-2020 influenza virus vaccine, split virus (incl. purified surface antigen) Campbell Naranjo Other MD Lingo Other 01-09-2020 influenza virus vaccine, split virus (incl. purified surface antigen) Campbell Naranjo Other MD Lingo Other 01-14-2018 influenza virus vaccine, split virus (incl. purified surface antigen) Campbell Naranjo Other MD Lingo Other 12-30-2016 influenza virus vaccine, split virus (incl. purified surface antigen) Campbell Naranjo Other [facility] Other 03-16-2016 influenza virus vaccine, split virus (incl. purified surface antigen) Campbell Naranjo Other [facility]ingo Other 05-01-2015 pneumococcal conjuga te vaccine, 13 valent Campbell Naranjo Other [facility] Other 05-01-2015 pneumococcal Conjuga te, unspecified formulation; Translations: [Need for prophylactic vaccination against Streptococcus pneumoniae (pneumococcus)] Campbell Naranjo Other [facility]ingo Other 12-28-2012 tetanus and diphther ia toxoids, adsorbed, preservative free, for adult use (5 Lf of tetanus toxoid and 2 Lf of diphtheria toxoid) Campbell Quentin Other [facility] Other 01-28-2012 diphtheria, tetanus toxoids and acellular pertussis vaccine, unspecified formulation Campbell Naranjo Other [facility] Other 01-20-2012 pneumococcal polysaccharide vaccine, 23 valent Campbell Naranjo Other [facility] Other 05-18-2011 pneumococcal polysaccharide vaccine, 23 valent Campbell Naranjo Other MD [facility]ingo Other Payers Date Payer Category Payer Self-pay 2016 Unknown KRISTIN FOSTER [place] DIC[place] SUPPLE[place] [id number] 2016-Present [phone] [address] [place] [address] Indemnity [id number] 2003 Medicare MEDICARE MEDICAR E A AND B [id number] 2003-Present [phone] [address] [address] [place] [address] Medicare [id number] 1959 Medicare [id number] 1959 Medicare [id number] 1938 Unknown [id number] 3 1938 Unknown [id number] 3 1938 Unknown [id number] 3 1938 Unknown [id number] 3 1938 Unknown [id number] 3 1938 Unknown [id number] 3 1938 Unknown [id number] 3 1938 Unknown [id number] 3 Medicare Medicare Outpatient [id number] Unknown [facility] [id number] 1 Unknown [id number] 1 Social History Date Type Detail Facility Start: 10-24-2009 End: 12-16-2021 Tobacco smoking status NHIS Ex-smoker [facility] End: 03-15-1971 History of tobacco use Current smoker [facility] End: 03-15-1971 History of tobacco use Cigarette Smoker [facility] Start: 10-24-2009 End: 07-28-2022 Cigarettes smoked current (pack per day) - Reported 1.5 [facility] Start: 11-07-2021 End: 12-16-2021 Alcohol intake Current drinker of alcohol (finding) [facility] Start: 1940 Sex Assigned At Not on file [facility] Start: 10-28-2021 End: 01-08-2022 Exposure to SARS-CoV-2 (event) Not sure [facility] Start: 12-11-2021 End: 12-17-2021 Tobacco smoking status NHIS Never smoked tobacco (finding) [facility] Start: 1940 Sex Assigned At Male F [facility] Start: 12-16-2021 Tobacco use and exposure Smokeless tobacco non-user [facility] Start: 12-16-2021 End: 07-28-2022 Sex Assigned At [facility] [employer] Other National Score (1-10 0), lower number is lower risk 61 [facility] Medical Equipment Procedure Code Equipment Code Equipment Origin al Text Equipment Identifier Dates Start: 10-23-2021 Comment on above: TEST HOME BLOOD SUGA R ONCE A DAY USE TO TEST HOME BLO OD SUGAR ONCE A DAY Clinical Notes 11-10-2021 to 04-21-2023 Note Date & Type Note Facility 04-21-2023 Evaluation note Encounter Date Diagnosis Assessment Notes Apr, Cellulitis of right lower extremity (ICD-10 - L03.115) Continue oral antibiotics for now but would recommend IV antibiotics. Have spoken w/ Dr. Tejada and he is in agreement that IV antibiotics may benefit this condition. Order for picc line placement Order for Vancomycin (dosed per pharmacy) Order for Fortaz 2gms IV q 12 f/u in 2 wks for recheck. Apr, Type 2 diabetes mellitus with foot ulcer (ICD-10 - E11.621) Instructed to avoid standing and walking as much as possible. Recommend resting w/ foot elevated. Continue HH for cleansing wound and dressing wound. Apr, Type 2 diabetes mellitus with peripheral neuropathy (ICD-10 - E11.42) Inspect feet daily for cuts and calluses.Recomme nd diabetic shoes and inserts to prevent callus formation.Fall precautions. Apr, Type 2 diabetes mellitus with hyperglycemia, without [...] office visit. Continue regular routine monitoring of A1C, Microalbumin, Dilated eye exam and Foot exam Apr, Primary hypertension (ICD-10 - I10) This patient is instructed to consume a healthy, low-fat, low-salt diet. They are also encouraged to continue exercise to achieve/maintain a normal BMI. Patient is instructed on home BP measurements: - rest for 5 minutes w/o talking.- positioned w/ feet on floor and arm supported.- average best 2/3 readings w/ goal < 135/85.- update office w/ home readings in 2 weeks. Apr, Other Continue cleansing and dressing per home health He states that this has worsened since being home. Instructed to elevate and avoid walking as much as possible. Reviewed ROCIO from initial hospital stay. - Cleocin + Doxycycline changed to Augmentin + Doxycycline w/o improvement His foot is edematous, erythematous, warm w/ foul odor. PI have reviewed his ROCIO - growth of Enterococcus and Pseudomonas - recommend Picc line and IV antibiotics MD Lingo Other 01-03-2024 Evaluation note* Encounter Date Diagnosis Assessment Notes Treatment Notes Treatment Clinical Notes Mar, Foot abscess, right (ICD-10 - [...] to restart Amlodipine. Continue PAUL for now. MD Lingo Other 12-12-2023 Evaluation note* Encounter Date Diagnosis [...] and inserts to prevent callus formation.Fall precautions. MD Lingo Other 12-08-2023 Evaluation note* Encounter Date Diagnosis [...] ulcers. Recommend routine foot care w/ Podiatry MD [facility]ingo Other 11-21-2023 NoteHNO ID: [id number] Author: Leticia Milian APRN.[facility] Service: ? Author Type: Nurse Practitioner Type: Progress Notes Filed: 02/02/2023 2:13 PM Note Text: Norberto Washington [address] [place] [id number] HISTORY OF PRESENT ILLNESS: Seen 07/28/22 for [...] see lab Duration: BPH w obs/luts, UTI [facility] SYMPTOMS SCORE. 1. INCOMPLETE EMPTYING [...] only if s (more content not included)... [facility]11-21-2023 Miscellaneous Notes* Addendum Note - Leticia Milian APRN.CNP - 02/02/2023 2:16 PM ESTAddended by: LETICIA MILIAN on: 02/02/2023 02:16 PM Modules accepted: Orders documented in this encounterSelect [facility] History of Present illness Narrative* Leticia Milian APRN.CNP - 02/02/2023 1:40 PM EST Norberto Washington [address] [place] [address] HISTORY OF PRESENT ILLNESS: Seen 07/28/22 for [...] see lab Duration: BPH w obs/luts, UTI [facility] SYMPTOMS SCORE. 1. INCOMPLETE EMPTYING [...] Making Level: 4 - Moderate Leticia Milian APRN.L D RN documented in this encounterSelect [facility]20[facility] Evaluation note* Encounter Date Diagnosis Assessment Notes [...] w/ acute infection Requires no additional treatment MD Lingo Other 07-06-2023 Evaluation note* Encounter Date Diagnosis [...] exercise for 30 minutes, 3-5 times weekly. MD Lingo Other 05-16-2023 NoteHNO ID: [id number] Author: Leticia Milian APRN.L D RN Service: ? Author Type: Nurse Practitioner Type: Progress Notes Filed: 07/30/2022 4:34 PM Note Text: Norberto Washington [address] [facility] [address] HISTORY OF PRESENT ILLNESS: Seen 01/20/22 for [...] 07/20/22=neg UA 07/20/22=leuk esterase 250, wbc 11-25 [facility] SYMPTOMS SCORE. 1. INCOMPLETE EMPTYING [...] obs/luts, AUA, PVR Med (more content not included)...[facility]04-06-2023 Evaluation note* Encounter Date Diagnosis Assessment [...] and inserts to prevent callus formation.Fall precautions. 06 Apr, 2023 Left carotid stenosis (ICD-10 - I65.22) US: [...] w/ antibiotics and treatment of urinary retention MD Lingo Other 03-21-2023 NotePROCEDURE: XR FOOT LT MIN [...] Electronically authenticated by: SAMY TORRES Date: 2022-06-02 15:48[facility]03-21-2023 NotePROCEDURE: XR FOOT LT MIN [...] Electronically authenticated by: SAMY TORRES Date: 2022-06-02 15:48[facility]01-25-2023 Evaluation note* Encounter Date Diagnosis [...] lesion was treated w/ cryotherapy w/o complications MD Lingo Other 01-06-2023 Evaluation note* Encounter Date Diagnosis [...] Mar, Hesitancy of micturition (ICD-10 - R39.11) [facility]ingo Other 10-27-2022 History of Present illness Narrative* Zuleika Hackett - 01/08/2022 8:20 AM EDT Norberto Washington [address] [address] Mr. Washington presents with chief complaints of: Enlarged L testicle. ED 11/07/21: PVR 179 cc, refused a catheter, scheduled to undergo a cystoscopy in [place] but was cancelled due to his urologist [...] 346 - 200 = 146 ml. UDS 9-27-22 UROFLOWMETRY= Voided vol: 270.3 ml. Q max: [...] epididymitis Hydroceles: None Spermatoceles: None Varicoceles: None [facility] SYMPTOMS SCORE. Date 01/08/2022 1. [...] scheduled -UA and culture prior OV with INFECTIOUS DISEASE TECHNICIAN Leticia By signing my name below, I, Zuleika [...] complete. Leonard Dugan M.D. documented in this encounterSelect [facility] Hospital Discharge instructions Additional Instructions Continue taking Flomax as prescribed Avoid drinking any fluids several hours before bed Call your urologist tomorrow for a follow-up appointment Return if you are unable to urinate, develop blood in your urine, abdominal pain[facility] Work Phone: [phone] History of Present illness Narrative* Leonard Dugan MD - 12/16/2021 2:51 PM EDT Norberto Washington [address] [facility] [address] HISTORY OF PRESENT ILLNESS: ED 11/07/21: PVR 179 cc, refused a catheter, scheduled to undergo a cystoscopy in [place] but was cancelled due to his urologist [...] Otherwise, intermittent catheterization. Agreed indwelling catheter 18 macedonian. Flomax will not work, no prostate tissue [...] well resected prostate (had 2 TURP) in [place] PLAN: (Management Options): -Start Flomax one cap [...] Moderate Leonard Dugan MD documented in this encounterSelect [facility]-2022 Miscellaneous Notes* Telephone Encounter - Valente Bell LPN - 12/15/2021 3:58 PM EDT Called and spoke to patient regarding message below. Patient states understanding to information provided. No further action required at this time. * Telephone Encounter - Leticia Milian APRN.CNP - 12/15/2021 10:13 AM EDT Please call and confirm that pt received [employer] message to start new script sent for antibiotic. Thanks Leticia MONDRAGON documented in this encounterSelect [facility]09-29-2022 Miscellaneous Notes* Telephone Encounter - Valente Bell [...] be draining normally now. documented in this encounterSelect [facility]09-28-2022 Nurse Note* Stephanie Kaur RN - 12/10/2021 [...] hyperplasia with urinary retention documented in this encounterSelect [facility]09-27-2022 History of Present illness Narrative* Leonard Dugan MD - 12/09/2021 5:05 PM EDT [facility] PHYSICIAN [...] contractility Leonard Dugan MD documented in this encounterSelect [facility]09-27-2022 Nurse Note* Stephanie Kaur RN - 12/09/2021 3:57 PM EDT [facility] URODYNAMICS [...] of incomplete bladder emptying documented in this encounterSelect Medical [facility]09-26-2022 Miscellaneous Notes* Telephone Encounter - Stephanie Kaur RN - 12/08/2021 4:11 PM EDT LM for patient to reschedule catheter change for tomorrow. Last changed 11/26/21 in ED. Will be due for change on 12/23/21. Stephanie Kaur R.N. documented in this encounterSelect Medical [facility]09-12-2022 Miscellaneous Notes* Telephone Encounter - Sonia Oliva [...] has been busy with his spouse at [facility] having to care for her needs and hadn't called earlier when it first started on Wednesday. He was hoping it would clear up but it has not, urine is between [place] tint & Brown and he does see small clots. Patient does have pain at the end of his Penis slight swelling noted (he has been applying Neosporin) Denies difficulty with urine draining into [place] bag, he does not have back pain Please advise documented in this encounterSelect [facility]08-31-2022 Nurse Note* Stephanie Kaur RN - 11/12/2021 [...] visit @ 1122 , by Stephanie Kaur RMartinez Current pain intensity is 0 on a [...] Education Session: None Instruction Provided To: Patient Project Management Analyst Present: not applicable Discipline: Nursing Learning Topic: SURVIVAL SKILLS: Symptom Management Patient Evaluation: Verbalizes understanding: Yes Supplemental Material Given: None Instructed By Stephanie Kuar RN In Department Urology . UNIVERSAL PROTOCOL [...] supervision. Stephanie Kaur RN documented in this encounterSelect Medical Specialty [facility]08-31-2022 Procedure note* Leonard Dugan MD - 11/12/2021 11:00 AM EDTProcedure(s): CYSTOSCOPY Pre-Procedure Diagnose(s): BPH with obstruction/lower urinary tract symptoms Post-Procedure Diagnose(s): BPH with obstruction/lower urinary tract symptoms PROCEDURE: CYSTOSCOPY INDICATIONS: ED 11/07/21: PVR 179 cc, refused a catheter, scheduled to undergo a cystoscopy in [place] but was cancelled due to his urologist [...] Otherwise, intermittent catheterization. Agreed indwelling catheter 18 macedonian. By signing my name below, IZuleika, attest that this documentation has been prepared under the direction and in the presence of Dr. Dugan. Munir Boothe Provider Attestation: Leonard Mancini M.D., personally performed the services described in this documentation. All medicalrecord entries made by the scribe were at my direction and in my presence. I have reviewed the chart and discharge instructions (if applicable) and agree that the record reflects my personal performance and is accurate and complete. Leonard Kailee, M.D. documented in this encounterSelect Medical [facility]ty [facility]08-29-2022 History of Present illness Narrative* Leonard Dugan MD - 11/10/2021 12:11 PM EDT Cysto with uroflow 11-12-21 ED 11/07/21: PVR 179 cc, refused a catheter, scheduled to undergo a cystoscopy in [place] but was cancelled due to his urologist was sick Pt underwent TURP x2 within a week AUA= 3-5 wach ROSAMARIA 11/10/21 - 10 gm, rubbery, no nodules US 11/07/21:= mildly complex renal cysts UA and culture 11-07-21= -ve May need UDS based on cysto documented in this encounterSelect [facility]ty [facility]onEvaluation note* Diagnosis BPH with obstruction/lower urinary tract symptoms- Primary Hypertrophy of prostate with urinary obstruction and other lower urinary tract symptoms (LUTS) Benign prostatic hyperplasia with urinary retention documented in this encounter [facility]* Diagnosis Urinary frequency- Primary Urinary urgency Urgency of urination Urinary straining Straining on urination Feeling of incomplete bladder emptying Incomplete bladder emptying documented in this encounter [facility]* Diagnosis Urinary tract infection without hematuria, site unspecified- Primary Feeling of incomplete bladder emptying Incomplete bladder emptying Benign prostatic hyperplasia with urinary retention documented in this encounter [facility] noteNo assessment information [facility] Work Phone: Evaluation note* Diagnosis Retention of urine- Primary Retention of urine, unspecified Flaccid bladder Neurogenic bladder, NOS documented in this encounter [facility]* Diagnosis Chronic epididymitis- Primary Left hydrocele Hydrocele, unspecified Weak urinary stream Slowing of urinary stream BPH without obstruction/lower urinary tract symptoms Hypertrophy of prostate without urinary obstruction and other lower urinary tract symptoms (LUTS) Epididymitis Orchitis and epididymitis, unspecified documented in this encounter [facility] noteNo InformationNort Litigain Other Evaluation note* Diagnosis BPH with obstruction/lower [...] cystoscopy 09.20.2019 Hospitalization History see surgical history MD Lingo Other Reason for referral (narrative)* Outpatient Procedure (Routine) - Pending Review Specialty Diagnoses / Procedures Referred By Marce dillon Referred To Contact [facility] Diagnoses 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 Procedures URODYNAMICS MAGGY POST-VOIDING RESIDUAL URINE&/BLADDER CAP Leonard Dugan MD [address] [place] [address] [facility] [address] [place] [address] Referral ID Status Reason Start Date Expiration Date Visits Requested Visits Authorized [id number] Pending Review Auto-Generat ed Referral 11/12/2021 11/12/2022 1 1 [facility] Summary Purpose Family History No Family History Records FoundNo Family History Records FoundNo Family History Records FoundNo Family History Records FoundNo Family History Records Found Advance Directives No Advanced Directives Records Found Advance Directive Response Recorded Date/ Time Advance [...] toe of right foot (M20.41) Referral Organization [facility] Referring Provider First Name Campbell Referring Provider Last Name Quentin Referring Provider Specialty Internal Me dicine Referred Organization [facility] Referred Provider Jhon Tejada Referred Address [address], [place],[address] Referred Provider Specialty Podiatry - S urgical [...] section and content) DATE CREATED AUTHOR 11/04/[address] [facility] DATE CREATED AUTHOR AUTHOR'S ORGANIZ ATION 12/13/2021 [facility] DATE CREATED AUTHOR AUTHOR'S ORGANIZ ATION 06/25/2022 [facility] DATE CREATED AUTHOR AUTHOR'S ORGANIZ ATION 02/04/2023 [facility] DATE CREATED AUTHOR AUTHOR'S ORGANIZ ATION 05/27/2023 [facility] Source Comments (unrecognize d section and content) In the event this informatio n is protected by the Federal Confidentiality of Alcohol and Drug Abuse Patient Records regulations: The Federal rules restrict any use of the information to criminally investigate or prosecute any alcohol or drug abuse patient.[facility]on[facility] the event this information is protected by the Federal Confidentiality of Alcohol and Drug Abuse Patient Records regulations: The Federal rules restrict any use of the information to criminally investigate or prosecute any alcohol or drug abuse patient.[facility]on[facility] the event this information is protected by the Federal Confidentiality of Alcohol and Drug Abuse Patient Records regulations: The Federal rules restrict any use of the information to criminally investigate or prosecute any alcohol or drug abuse patient.[facility]on[facility] the event this information is protected by the Federal Confidentiality of Alcohol and Drug Abuse Patient Records regulations: The Federal rules restrict any use of the information to criminally investigate or prosecute any alcohol or drug abuse patient.[facility]on[facility] the event this information is protected by the Federal Confidentiality of Alcohol and Drug Abuse Patient Records regulations: The Federal rules restrict any use of the information to criminally investigate or prosecute any alcohol or drug abuse patient.[facility]onIn the event this information is protected by the Federal Confidentiality of Alcohol and Drug Abuse Patient Records regulations: The Federal rules restrict any use of the information to criminally investigate or prosecute any alcohol or drug abuse patient.[facility]onIn the event this information is protected by the Federal Confidentiality of Alcohol and Drug Abuse Patient Records regulations: The Federal rules restrict any use of the information to criminally investigate or prosecute any alcohol or drug abuse patient.[facility]onIn the event this information is protected by the Federal Confidentiality of Alcohol and Drug Abuse Patient Records regulations: The Federal rules restrict any use of the information to criminally investigate or prosecute any alcohol or drug abuse patient.[facility]onIn the event this information is protected by the Federal Confidentiality of Alcohol and Drug Abuse Patient Records regulations: The Federal rules restrict any use of the information to criminally investigate or prosecute any alcohol or drug abuse patient.[facility]onIn the event this information is protected by the Federal Confidentiality of Alcohol and Drug Abuse Patient Records regulations: The Federal rules restrict any use of the information to criminally investigate or prosecute any alcohol or drug abuse patient.[facility]onIn the event this information is protected by the Federal Confidentiality of Alcohol and Drug Abuse Patient Records regulations: The Federal rules restrict any use of the information to criminally investigate or prosecute any alcohol or drug abuse patient.[facility]onIn the event this information is protected by the Federal Confidentiality of Alcohol and Drug Abuse Patient Records regulations: The Federal rules restrict any use of the information to criminally investigate or prosecute any alcohol or drug abuse patient.[facility] Care Teams (unrecognized sec tion and content) Team Status: Active Member Role Status Dates Campbell Naranjo DO Primary Care Provider Active Team Status: Inactive Member Role Status Dates Campbell Naranjo , Primary Care Provider Active Low Carter , Emergency Provider Active Plate Cleaner Relationship Specialty Start Date End Date Ran Lees Jr. PCP - General 10/10/09 Plate Cleaner Relationship Specialty Start Date End Date Ran Lees Jr. PCP - General 10/10/09 Plate Cleaner Relationship Specialty Start Date End Date Ran Lees Jr. PCP - General 10/10/09 Plate Cleaner Relationship Specialty Start Date End Date QuentinCampbell, DO [address] [facility] [address] PCP - General Internal Medicine 11/26/21 Plate Cleaner Relationship Specialty Start Date End Date QuentinCampbell, DO [address] [place] [facility] [place] [address] PCP - General Internal Medicine 11/26/21 Plate Cleaner Relationship Specialty Start Date End Date Campbell Naranjo [place], DO [address] [place] [facility] [place] [address] PCP - General Internal Medicine 11/26/21 Plate Cleaner Relationship Specialty Start Date End Date Campbell Naranjo, DO [address] [facility] [address] PCP - General Internal Medicine 11/26/21 Team Status: Inactive Member Role Status Dates Campbell Naranjo DO Primary Care Provider Active Davis Cervantes MD Emergency Provider Active Plate Cleaner Relationship Specialty Start Date End Date Campbell Naranjo, DO [address] [place] [facility] [place] [address] PCP - General Internal Medicine 11/26/21 Team Status: Inactive Member Role Status Dates Campbell Naranjo DO Primary Care Provider Active Sam Simons DO Emergency Provider Active Team Status: Inactive Member Role Status Dates Campbell Naranjo , Primary Care Provider Active Sam Simons DO Attending Provider Active Plate Cleaner Relationship Specialty Start Date End Date Campbell Naranjo, DO [address] [place] [address] PCP - General Internal Medicine 11/26/21 Plate Cleaner Relationship Specialty Start Date End Date Campbell Naranjo, DO [address] [place] [address] PCP - General Internal Medicine 11/26/21 Plate Cleaner Relationship Specialty Start Date End Date Campbell Naranjo DO [address] [place] [address] PCP - General Internal Medicine 11/26/21 Reason for Visit (unrecogniz ed section and content) Reason Comments Cystoscopy-1 Reason Comments [place] Cath [...] InformationNo InformationNo InformationNo InformationNo InformationNo InformationNo InformationNo Information FOR [...] BE BASED ON THE PRIMARY CLINICAL RECORDS. [facility]. provides no warranty or guarantee of the accuracy or completeness of information in this document.
== END 2023-06-18 11:59 | disposition home or self-care (01) ==
LOC: WC 11:58
PROVIDERS: PCP Internal Medicine; Visit Provider Podiatrist Foot & Ankle Surgery
DX: E11.621 Type 2 diabetes mellitus with foot ulcer (principal); L97.518 Non-pressure chronic ulcer of other part of right foot with other specified severity; L97.521 Non-pressure chronic ulcer of other part of left foot limited to breakdown of skin
CPT/HCPCS: 11042

== ENCOUNTER 2023-07-02 09:59 | Outpatient (OUT) | payer MEDICARE, SELFPAY ==
--- NOTE | 2023-07-02 | XR_ITS ---
[address] [address] Patient Name: EMILY WASHINGTON MRN: [id number] date: 1940 Sex: M Assigned Patient Location: Current Patient Location: Accession/Order Number: [id number] Exam Date: 07/02/2023 10:27 Report Date: 07/03/2023 10:06 At the request of: SABINE MUNSON Procedure: XR foot SIMONE min 3V PROCEDURE: XR foot SIMONE min 3V HISTORY: BILATERAL FOOT PAIN COMPARISON: XR foot right 04/12/2023, XR foot left 06/02/2022 EXAMINATION: XR foot SIMONE min 3V FINDINGS: RIGHT FINDINGS: BONES: Osseous destruction of approximately 50% of the head of the 5th proximal phalanx. Mild degenerative changes of the first metatarsophalangeal joint and first interphalangeal joint. Moderate loss of plantar arch. SOFT TISSUES: Mild dorsal soft tissue swelling. OTHER: Negative. LEFT FINDINGS: BONES: Prior mechanical fusion of the first toe interphalangeal joint via lag screw and bone staple. 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 Multifocal degenerative changes the midfoot. Mild loss of plantar arch. SOFT TISSUES: No visible soft tissue swelling. OTHER: Negative. XR/XR foot SIMONE min 3V IMPRESSION: RIGHT CONCLUSION: New osseous destruction of a portion of the 5th proximal phalanx most compatible with osteomyelitis. LEFT CONCLUSION: Stable postsurgical changes. Electronically authenticated by: SUNI FREIRE Date: 07/03/2023 10:06
--- OUTSIDE RECORDS SUMMARY | 2023-07-02 10:05 | XMS_ITS | CCD ---
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 Name Role Phone Rosemarie Connolly, Ran Latham Primary Care Provider Unava ilRAN Carranza JR Primary Care Unavailable KEELY GUTIERREZ Attending Unavailable CAMPBELL NARANJO Primary Care Unavailable Campbell Naranjo DO Primary Care Provider DO Campbell Naranjo Primary Care Provider [phone] MD Davis Cervantes Emergency Provider DO Sam [...] Unavailable BALL, DR SHERMAN Primary Care Unavailable OctavianoCornell Unavailable DO Campbell Naranjo Primary Care Provider TuDO Low dixon Emergency Provider Campbell Naranjo DO Primary Care Provider LETICIA [...] Primary Care Unavailable Low Carter Admitting Unavailable DO Campbell Naranjo Primary Care Provider [phone] DO Low Carter Emergency Provider [phone] Allergies Allergy Classification Reported Allergen(s) Allergy Type Date of Onset Reaction(s) Facility (20 sources) Ciprofloxacin; Translations: [CIPROFLOXACIN] Drug Allergy 08-01-19 10 GI Upset, [facility] (20 sources) Sulfonamides (Antibiotic); Translations: [SULFA (SULFONAMIDE ANTIBIOTICS)] Propensity to adverse reactions 08-01-19 10 Rash, [facility] (1 source) Ciprofloxacin Drug Allergy [facility] (1 source) Sulfonamides (Antibiotic) Drug allergy (disorder) [facility] (1 source) Allergies Reconciled Propensity to adverse reactions Unknown [employer] Other (1 source) patient allergy list reviewed by nurse or physicia Propensity to adverse reactions 05-20-19 Comment:Done [employer] Other (1 source) Ciprofloxacin Drug Allergy 05-21-19 [facility] (1 source) Sulfonamides (Antibiotic) Drug allergy (disorder) 05-21-19 [facility] Medications Current Medications Medication Drug Class(es) Dates Sig (Normalized) Sig (Original) amLODIPine 5 mg oral tablet (18 sources) Dihydropyridine Calcium Channel Radha Start: 05-31-2023 take 1 tablet by mouth once daily Amlodipine Active 0 .ROUTE .COMPLEX 90 May 31, 2023 5:07pm TAKE 1 TABLET BY MOUTH DAILY FOR 30 DAYS Start: 05-31-2023 End: 05-31-2023 take 5 mg by mouth once daily Amlodipine Discontinued 5 MG PO Daily May 31, 2023 12:00am May 31, 2023 5:07pm Start: 05-08-2023 End: 05-21-2023 take 5 mg by mouth once daily Amlodipine Discontinued 5 MG PO Daily May 08, 2023 1:02pm May 21, 2023 12:03pm Start: 12-11-2021 amLODIPine (NO RVASC) 2.5 mg tablet Amlodipine Active 5 MG PO Daily December 11, 2021 12:00am 0 12/11/2021 Active Start: 12-11-2021 End: 05-08-2023 take 5 mg by mouth once daily Amlodipine Discontinued 5 MG PO Daily December 11, 2021 12:00am May 08, 2023 1:04pm Comment on above: Amlodipine Active 5 MG PO Daily December 11, 2021 12:00am aspirin 81 mg oral tablet (20 sources) Platelet Aggregation Inhibitor, Nonsteroidal Anti-inflammatory Drug Start: 12-11-2021 take 81 mg by mouth once daily Aspirin Active 81 MG PO Daily December 11, 2021 12:00am take 1 tablet by marisela th every twenty-four hours Aspirin 81 MG 1 tablet Orally Once a day for 30 day(s) Active Comment on above: Aspirin Active 81 MG PO Daily December 11, 2021 12:00am cephalexin 500 mg oral capsule (17 sources) Cephalosporin Antibacterial Start: 01-23-2022 End: 01-23-2022 [...] Comment on above: Take 1 capsule by [facility] twice daily. Take 1 capsule by [facility] three times daily for 3 days. Start evening prior procedure diclofenac 18 mg oral capsule (19 sources) Nonsteroidal Anti-inflammatory Drug take 1 capsule by mouth three times daily econazole nitrate 10 mg/ml topical cream (19 sources) Azole Antifungal gabapentin 300 mg oral capsule (20 sources) Anti-epileptic Agent Start: 07-31-2009 take 300 mg by mouth once daily Gabapentin Active 300 MG PO Daily December 11, 2021 12:00am Gabapentin 300 M G TAKE 1 CAPSULE 3 TIMES A DAY Active Gabapentin 300 M G 1 capsule bid and 2 q HS Orally tid Active Comment on above: Take one(1) tablet t wo(2) times daily. glipiZIDE er 2.5 mg 24 hr extended [...] Take 2.5 mg by mouth once daily. glucosamine 500 mg oral tablet (13 sources) Start: 05-21-2023 take 500 mg by mouth once daily Glucosamine Hcl Active 500 MG PO Daily May 21, 2023 1:00am administer with a meal Start: 05-25-2019 Glucosamine HC l 1,500 mg tab Take 1,500 mg by mouth. 0 05/25/2019 Active Comment on above: Take 1,500 mg by marisela th. Glucosamine 1500 Complex - (19 sources) Glucosamine [...] (20 sources) Angiotensin Converting Enzyme Inhibitor Start: 05-21-2023 End: 06-17-2023 take 20 mg by mouth once daily Lisinopril Active 20 MG PO Daily June 17, 2023 12:03pm Start: 12-11-2021 End: 05-21-2023 take 10 mg by mouth once daily Lisinopril Discontinued 10 MG PO Daily December 11, 2021 12:00am May 21, 2023 12:03pm Start: 07-31-2009 lisinopril(ALEXANDRA NIVIL 10 MG TAB) Take one(1) tablet daily. 0 0 07/31/2009 Active Lisinopril 20 MG TAKE 1 TABLET DAILY Active Comment on above: Take one(1) tablet d aily. lovastatin 40 mg oral tablet (20 sources) HMG-CoA Reductase Inhibitor Start : 05-24 End: 06-16 take 40 mg by mouth once daily Lovastatin Active 40 MG PO Daily June 17, 2023 12:03pm Comment on above: Lovastatin Active 40 MG PO Daily December 11, 2021 12:00am methylsulfonylmethane 1000 mg oral tablet (1 source) Start : 05-20 take 1 capsule by mouth twice daily Methylsulfonylmethane (Msm) 1,000 mg capsule Active 1000 MG PO Twice daily May 21, 2023 1:00am MSM 1500 MG (19 sources) MSM 1500 MG as d irected Orally Active Multi For Him - (4 sources) Multi For Him - as directed Orally Active Multivitamin (Daily Multi-Vitamin) tablet (1 source) Start: 05-21-19 take 1 tablet by mouth once daily Multivitamin (Daily Multi-Vitamin) tablet Active 1 TAB PO Daily May 21, 2023 1:00am nitrofurantoin, macrocrystals 50 mg oral capsule (1 [...] TUBE route twice daily for 10 days. Turmeric Root-Yulisa Root Ext (1 source) Start: 05-21-19 Turmeric Root-Yulisa Root Ext Active TAB PO May 21, 2023 1:00am Turmeric-Yulisa 150-25 MG (4 sources) Turmeric-Yulisa 150-25 [...] mg / clavulanate 125 mg oral tablet (7 sources) Penicillin-class Antibacterial Start: 05-15-2023 End: 05-21-2023 take 1 tablet by mouth twice daily Amoxicillin-Pot Clavulanate Discontinued 1 TAB PO Twice daily May 15, 2023 1:00am May 21, 2023 12:00pm Start: 02-19-2023 take 1 tablet by marisela th every twelve hours Amoxicillin-Pot Clavulanate 875-125 MG 1 tablet Orally every 12 hrs Feb, Active azithromycin 250 mg oral tablet (11 sources) Macrolide Antimicrobial Start: 09-22-2022 Azithromycin 250 MG as directed Orally daily for 5 days Sep, Not-Taking/PRN betamethasone 0.5 mg/ml / clotrimazole 10 mg/ml topical cream (19 sources) Azole Antifungal, Corticosteroid Clotrimazole-Betame thasone 1-0.05 % 1 application Externally three times a day Not-Taking/PRN doxycycline hyclate 100 mg oral capsule (2 sources) Tetracycline-class Drug Start: 12-26-2021 doxycycline hyclate (VIBRAMYCIN) 100 mg capsule ammonium lactate 120 mg/ml topical cream (11 sources) Start: 01-09-2010 Ammonium Lactate 12 % TOPICAL cream Use twice daily on feet 2 01/09/2010 Active Comment on above: Use twice daily on f eet simvastatin 40 mg oral tablet (20 sources) HMG-CoA Reductase Inhibitor Start: 07-31-2009 End: 12-16-2021 simvastatin(ZOCOR 40 MG TAB) Take one(1) tablet daily at bedtime. 0 0 07/31/2009 12/16/2021 Discontinued (Discontinued by Patient) Comment on above: Take one(1) tablet d aily at bedtime. tamsulosin hydrochloride 0.4 mg oral capsule (20 sources) alpha-Adrenergic Radha Start: 12-17-2021 End: 06-23-2023 take 0.4 mg by mouth twice daily Tamsulosin Discontinued 0.4 MG PO Twice daily 180 90 June 17, 2023 12:04pm June 23, 2023 9:54am Start: 12-16-2021 End: 01-28-2024 take 0.4 mg by mouth once daily at bedtime Tamsulosin Active 0.4 MG PO Daily at bedtime June 23, 2023 9:53am Comment on above: Take 1 capsule by mo [facility] once daily. Take one cap. daily trimethoprim 100 mg oral tablet (6 sources) Dihydrofolate Reductase Inhibitor Antibacterial Start: End: take 100 mg by mouth twice daily Trimethoprim Discontinued 100 MG PO Twice daily December 17, 2021 12:00am May 21, 2023 12:03pm Comment on above: Take 1 tablet by marisela twice daily for 5 days. Problems Active Problems Problem Classification Problem Date [...] depolarization] Onset: 06-23-2016 Chronic Chronic kidney disease (4 sources) Chronic kidney disease stage 3; Translations: [Chronic kidney disease, stage 3 unspecified] Onset: 08-23-2014 06-20-2023 Chronic Chronic ulcer of skin (14 sources) Ulcer of foot; Translations: [Non-pressure chronic ulcer of other part of unspecified foot with unspecified severity] Onset: 10-02-2009 10-02-2009 Chronic Complication of device; implant or graft (5 sources) Disorder of urethral catheter; Translations: [Breakdown [...] sources) H/O: high risk medication; Translations: [Other longterm (current) drug therapy] Episodic Other aftercare (1 source) Long-term current use of drug therapy; Translations: [Other longterm (current) drug therapy] Episodic Other circulatory disease [...] insufficiency (chronic) (peripheral)] Onset: 09-21-2016 Episodic Other diseases of veins and lymphatics (1 source) Venous insufficiency of leg; Translations: [Venous insufficiency (chronic) (peripheral)] 05-20-2023 Episodic Other diseases of veins and lymphatics (1 source) Stasis dermatitis; Translations: [Venous insufficiency (chronic) (peripheral)] 05-21-2023 Episodic Other diseases of veins and lymphatics (2 sources) Venous insufficiency (chronic) (peripheral); Translations: [Venous (peripheral) insufficiency, unspecified] 05-21-2023 Episodic Other injuries and conditions due to [...] eye] Episodic Skin and subcutaneous tissue infections (7 sources) Cellulitis of toe of left foot; [...] 08-28-2019 Episodic Other aftercare (1 source) Other longterm (current) drug therapy; Translations: [OTH NUT FEEDER CURRENT DRUG THERAPY] Onset: 10-22-2021 Episodic Other [...] LE RTon US venous duplex LE RT [facility] Main [address] [address] Ultrasound Report Signed Patient: Norberto Washington MR#: [id number] [birth year] : 1940 Acct:[id number] Age/Sex: 83 / M ADM Date: 05/15/23 Loc: ER Room: Type: [facility] ER Attending Dr: Ordering Provider: Low Carter [...] MD05/16/2023 11:15 AM Dictation Location: [place] [address] Tech: Helen Malloy Transcribed By: PAUL 05/16/23 1115 Dictated By: Gus Wren MD 05/16/23 1114 Signed By: 05/16/23 1115 Normal [facility] Estimated glomerular filtrat ion rate (GFR) non- Americanon 05-03-2023 GFR/1.73 sq M.predicted among non-blacks MDRD (S/P/Bld) [Vol rate/Area] mL/min/{1.73_m2} >=60 [facility] Laboratory - Chemistry and C hemistry - challengeon 05-03-2023 Calcium [Mass/Vol] 8.5 mg/dL 8.5-10.1 [facility] Chloride [Moles/Vol] 100 mmol/L 98-107 [facility] CO2 [Moles/Vol] 27.6 mmol/L 21.0-32.0 [facility] Creatinine [Mass/Vol] 1.06 mg/dL 0.70-1.30 [facility] GFR/1.73 sq M.predicted MDRD (S/P/Bld) [Vol rate/Area] mL/min/{1.73_m2} >=60 [facility] Glucose [Mass/Vol] 135 mg/dL 74-106 [facility] Potassium [Moles/Vol] 4.1 mmol/L 3.5-5.1 [facility] Sodium [Moles/Vol] 136 mmol/L 136-145 [facility] Urea nitrogen [Mass/Vol] 19.0 mg/dL 7.0-18.0 [facility] Urea nitrogen/Creatinine [Mass ratio] 17.9 mg/mg [facility] No Panel Informationon 05-03 C-Reactive Protein, Quantitative <0.50 mg/dL <=0.50 [facility] Serum or plasma anion gap de terminationon 05-03-2023 Anion gap [Moles/Vol] 12.5 mmol/L [facility] Estimated glomerular filtrat ion rate (GFR) non- Americanon 04-30-2023 GFR/1.73 sq M.predicted among non-blacks MDRD (S/P/Bld) [Vol rate/Area] mL/min/{1.73_m2} >=60 [facility] Laboratory - Chemistry and C hemistry - challengeon 04-30-2023 Calcium [Mass/Vol] 8.7 mg/dL 8.5-10.1 [facility] Chloride [Moles/Vol] 101 mmol/L 98-107 [facility] CO2 [Moles/Vol] 29.2 mmol/L 21.0-32.0 [facility] Creatinine [Mass/Vol] 1.06 mg/dL 0.70-1.30 [facility] GFR/1.73 sq M.predicted MDRD (S/P/Bld) [Vol rate/Area] mL/min/{1.73_m2} >=60 [facility] Glucose [Mass/Vol] 93 mg/dL 74-106 [facility] Potassium [Moles/Vol] 4.6 mmol/L 3.5-5.1 [facility] Sodium [Moles/Vol] 136 mmol/L 136-145 [facility] Urea nitrogen [Mass/Vol] 20.0 mg/dL 7.0-18.0 [facility] Urea nitrogen/Creatinine [Mass ratio] 18.9 mg/mg [facility] No Panel Informationon 04-30 C-Reactive Protein, Quantitative 0.50 mg/dL <=0.50 [facility] Vancomycin Level Trough 11.0 ug/mL 5.0-20.0 [facility] Serum or plasma anion gap de terminationon 04-30-2023 Anion gap [Moles/Vol] 10.4 mmol/L [facility] CNOVon 02-02-2023 CNOV Office Visit (UROLLN ) NORBERTO WASHINGTON ([id number]) 1940 M Date Time Provider Department 02/02/23 1:30 PM LETICIA MILIAN UROLLJatinder During your visit today, we recorded the following information about you: Pulse Blood pressure Weight 65/minute 146/70 102.1 kg Leticia Milian, RN [facility] 02/02/2023 2:13 PM Signed Norberto Washington [address] [id number] HISTORY OF PRESENT ILLNESS: Seen 07/28/22 for [...] see lab Duration: BPH w obs/luts, UTI [facility] SYMPTOMS SCORE. 1. INCOMPLETE EMPTYING [...] Stream (imp (more content not included)... Normal [facility] Bacteria Ur Culton 3 Bacteria identified Cx Nom (U) CULTURE, URINE: No growth (<1,000 CFU/ml) Normal [facility] Comment on above: Performed By: #### 6 30-4 #### [facility] CLIA [id number] [address] [place] [address] OF [facility] CNOVon 07-28-2022 CNOV Office Visit (UROLLN ) NORBERTO WASHINGTON ([id number]) 1940 M Date Time Provider Department 07/28/22 1:30 PM LETICIA MILIAN During your visit today, we recorded the following information about you: Pulse Blood pressure Weight 68/minute 142/55 100.7 kg Leticia Milian APRN.[employer] 07/30/2022 4:34 PM Addendum Norberto Washington [address] [facility] [address] HISTORY OF PRESENT ILLNESS: Seen 01/20/22 for [...] 07/20/22=neg UA 07/20/22=leuk esterase 250, wbc 11-25 [facility] SYMPTOMS SCORE. 1. INCOMPLETE EMPTYING [...] -DM UTI (more content not included)... Normal [facility] Bacteria Ur Culton 3 Bacteria identified Cx Nom (U) CULTURE, URINE: No growth (<1,000 CFU/ml) Normal [facility] Comment on above: Performed By: #### 6 30-4 #### [facility] CLIA [id number] [facility] [place] [address] [place] Urinalysis complete panel (U )on 07-20-2022 Bilirubin Ql (U) Negative Normal Negative [facility] Comment on above: Order Comment: Speci men Type: URINE SPECIMEN [facility]ing Facility[facility] Address: [address] [address] Performed By: #### 2 4356-8 #### [facility] CLIA [id number] [address] [place] [address] [place] Clarity (Unsp spec) Clear Normal Clear [facility] Comment on above: Order Comment: Speci men Type: URINE SPECIMEN [facility] Facility[facility] Address: [address] [address] Performed By: #### 2 4356-8 #### [facility] CLIA [id number] [facility] [place] [address] [place] Color (U) Yellow Normal Yellow [facility] Comment on above: Order Comment: Speci men Type: URINE SPECIMEN Ordering Facility[facility] Address: [address] [address] Performed By: #### 2 4356-8 #### [facility] CLIA [id number] [address] [place] Epithelial cells LM.HPF (Urine sed) [#/Area] Few Normal [facility] Comment on above: Order Comment: Speci men Type: URINE SPECIMEN [facility] Address: [address] Performed By: #### 2 4356-8 #### [facility] CLIA [id number] [address] [place] [address] [place] Glucose Test strip (U) [Mass/Vol] Negative Normal Trace, Negative [facility] Comment on above: Order Comment: Speci men Type: URINE SPECIMEN [facility] Address: [address] Performed By: #### 2 4356-8 #### [facility] CLIA [id number] [address] [place] [address] [place] Hemoglobin Ql (U) Negative Normal Negative, Trace [facility] Comment on above: Order Comment: Speci men Type: URINE SPECIMEN [facility] Address: [address] Performed By: #### 2 4356-8 #### [facility] CLIA [id number] [address] [place] [address] [place] Ketones Ql (U) Negative Normal Trace, Negative [facility] Comment on above: Order Comment: Speci men Type: URINE SPECIMEN [facility] Address: [address] Performed By: #### 2 4356-8 #### [facility] CLIA [id number] [address] [place] [address] [place] Leukocyte esterase Test strip Ql (U) 250 Ayaz/uL Abnormal Negative, 25 Ayaz/uL [facility] Comment on above: Order Comment: Speci men Type: URINE SPECIMEN [facility] Address: [address] Performed By: #### 2 4356-8 #### [facility] CLIA [id number] [address] [place] [address] [place] Nitrite Ql (U) Negative Normal Negative [facility] Comment on above: Order Comment: Speci men Type: URINE SPECIMEN [facility] Address: [address] [place] [address] Performed By: #### 2 4356-8 #### [facility] CLIA [id number] [address] [place] [address] [place] pH (U) 5.5 [pH] Normal 5.0-8.0 [facility] Comment on above: Order Comment: Speci men Type: URINE SPECIMEN [facility] Address: [address] [place] [address] Performed By: #### 2 4356-8 #### [facility] CLIA [id number] [address] [place] [address] [place] Protein (U) [Mass/Vol] Negative Normal Trace , Negative [facility] Comment on above: Order Comment: Speci men Type: URINE SPECIMEN [facility] Address: [address] [place] [address] Performed By: #### 2 4356-8 #### [facility] CLIA [id number] [address] [place] [address] [place] RBC LM.HPF (Urine sed) [#/Area] 0-3 /HPF Normal 0-3 /HPF [facility] Comment on above: Order Comment: Speci men Type: URINE SPECIMEN [facility] Address: [address] [place], [place] [address] Performed By: #### 2 4356-8 #### [facility] CLIA [id number] [address] [place] [address] [place] Specific gravity (U) [Rel density] 1.016 Normal 1.005-1.030 [facility] Comment on above: Order Comment: Speci men Type: URINE SPECIMEN [facility] Address: [address] [place] [address] Performed By: #### 2 4356-8 #### [facility] CLIA [id number] [address] [place] [address] [place] Urobilinogen Ql (U) Negative Normal Negative [facility] Comment on above: Order Comment: Speci men Type: URINE SPECIMEN [facility] Address: [address] [address] Performed By: #### 2 4356-8 #### [facility] CLIA [id number] [address] [place] [address] [place] WBC LM.HPF (Urine sed) [#/Area] 11-25 /HPF Abnormal 0-5 /HPF [facility] Comment on above: Order Comment: Speci men Type: URINE SPECIMEN [facility] Address: [address] [place] [address] Performed By: #### 2 4356-8 #### [facility] CLIA [id number] [address] [place] [address] [place] GLYCOHEMOGLOBIN A1Con 2022 ADA RECOMMENDATION SEE BELOW Normal [facility] Comment on above: Result Comment: ADA RECOMMENDED LIMIT 4.0 - 6.0 ADA THERAPEUTIC TARGET < 7.0 ACTION SUGGESTED > 7.0 Performed By: #### A 1C #### [facility] [address] [address] [address] Juan Pablo Kaminski Glucose [Mass/Vol] 128 mg/dL Normal [facility] Comment on above: Performed By: #### A 1C #### [facility] [address] [address] [address] Juan Pablo Kaminski HbA1c (Bld) [Mass fraction] 6.1 % Normal 4.5-6.2 [facility] Comment on above: Performed By: #### A 1C #### [facility] [address] [place] [address] Dr. Juan Pablo Kaminski A1C with Estimated Average G ashokn 03-20-2022 A1C with Estimated Average Glu 128 [employer] [facility] [employer] Other A1C with Estimated Average Glu [facility] [employer] Other HbA1c (Bld) [Mass fraction] 6.1 % Normal 4.5-6.2 [employer] [facility] [employer] Other Comment on above: Performed By: #### A 1C #### [facility] [address] [place] [address] Dr. Juan Pablo Kaminski GLYCOHEMOGLOBIN A1Con 2022 ADA RECOMMENDATION SEE BELOW Normal [facility] Comment on above: Result Comment: ADA RECOMMENDED LIMIT 4.0 - 6.0 ADA THERAPEUTIC TARGET < 7.0 ACTION SUGGESTED > 7.0 Performed By: #### A 1C #### [facility] [address] [place] [address] Dr. Juan Pablo Kaminski Glucose [Mass/Vol] 128 mg/dL Normal [facility] Comment on above: Performed By: #### A 1C #### [facility] [address] [place] [address] Dr. Juan Pablo Kaminski US SCROTUM W [...] by: LEIDY PEREIRA Date: 2021-12-25 18:32 Normal [facility] Urine culture routineOrdered By: Sam Simons on 12-19-2021 Bacteria identified Cx Nom (U) Pseudomonas aeruginosa [facility] Automated erythrocytes count in urine sediment (number/area)Ordered By: Sam Simons on 12-17-2021 RBC Auto (Urine sed) [#/Area] 1-2 [HPF] 0-4 [facility] Automated leukocytes count i n urine sediment (number/area)Ordered By: Sam Simons on 12-17-2021 WBC Auto (Urine sed) [#/Area] 20-49 [HPF] 0-4 [facility] Bilirubin Test strip Ql (U)O rdered By: Sam Simons on 12-17-2021 Bilirubin Ql (U) Negative Negative [facility] Color Auto (U)Ordered By: Micheal Simons on 12-17-2021 Color (U) Yellow Yellow [facility] Ketones Auto test strip (U) [Mass/Vol]Ordered By: Sam Simons on 12-17-2021 Ketones (U) [Mass/Vol] Negative Negative [facility] - UrinalysisOrder ed By: Sam Simons on 12-17-2021 Hyaline casts LM Ql (Urine sed) 0-8 [LPF] 0-8 [facility] Nitrite Test strip Ql (U)Ord ered By: Sam Simons on 12-17-2021 Nitrite Ql (U) Negative Negative [facility] Protein Auto test strip (U) [Mass/Vol]Ordered By: Sam Simons on 12-17-2021 Protein (U) [Mass/Vol] Negative Negative [facility] Specific gravity Auto test s trip (U) [Rel density]Ordered By: Sam Simons on 12-17-2021 Specific gravity (U) [Rel density] 1.016 1.001-1.030 [facility] Squamous epithelial cells de tection in urine sediment by light microscopyOrdered By: Sam Simons on 12-17-2021 Epithelial cells.squamous LM Ql (Urine sed) 0-1 [HPF] 0-2 [facility] Urine bacteria detection by automated methodOrdered By: Sam Simons on 12-17-2021 Bacteria Auto Ql (U) None seen None Seen [facility] Urine clarity by refractomet ry automatedOrdered By: Sam Simons on 12-17-2021 Clarity Refractometry automated (U) Clear Clear [facility] Urine glucose measurement by automated test strip (mass/volume)Ordered By: Sam Simons on 12-17-2021 Glucose Auto test strip (U) [Mass/Vol] Normal mg/dL Normal [facility] Urine hemoglobin detection b y automated test stripOrdered By: Sam Simons on 12-17-2021 Hemoglobin Auto test strip Ql (U) Negative Negative [facility] Urine leukocyte esterase det ection by automated test stripOrdered By: Sam Simons on 12-17-2021 Leukocyte esterase Auto test strip Ql (U) 4+ Negative [facility] Urobilinogen Auto test strip (U) [Mass/Vol]Ordered By: Sam Simons on 12-17-2021 Urobilinogen (U) [Mass/Vol] Normal mg/dL Normal [facility] pH Auto test strip (U)Ordere d By: Sam Simons on 12-17-2021 pH (U) 6.0 [pH] 5.0-9.0 [facility] Urine culture routineOrdered By: Davis Cervantes on 12-13-2021 Bacteria identified Cx Nom (U) No Growth 2 Days [facility] Automated erythrocytes count in urine sediment (number/area)Ordered By: Davis Cervantes on 12-11-2021 RBC Auto (Urine sed) [#/Area] 20-49 [HPF] 0-4 [facility] Automated leukocytes count i n urine sediment (number/area)Ordered By: Davis Cervantes on 12-11-2021 WBC Auto (Urine sed) [#/Area] 10-19 [HPF] 0-4 [facility] Basophils Auto (Bld) [#/Vol] Ordered By: Davis Cervantes on 12-11-2021 Basophils (Bld) [#/Vol] 0.1 10*3/uL 0.0-0.2 [facility] Basophils/100 WBC Auto (Bld) Ordered By: Davis Cervantes on 12-11-2021 Basophils/100 WBC (Bld) 1.2 % . [facility] Bilirubin Test strip Ql (U)O rdered By: Davis Cervantes on 12-11-2021 Bilirubin Ql (U) Negative Negative [facility] Blood hemoglobin measurement (mass/volume)Ordered By: Davis Cervantes on 12-11-2021 Hemoglobin (Bld) [Mass/Vol] 13.3 g/dL 13.0-17.0 [facility] Blood leukocytes automated c ount (number/volume)Ordered By: Davis Cervantes on 12-11-2021 WBC (Bld) [#/Vol] 8.2 10*3/uL 4.5-11.0 [facility] Color Auto (U)Ordered By: Mary Cervantes on 12-11-2021 Color (U) Yellow Yellow [facility] Creatinine and Glomerular fi ltration rate.predicted panel (S/P/Bld)Ordered By: Davis Cervantes on 12-11-2021 Creatinine [Mass/Vol] 1.16 mg/dL 0.64-1.27 [facility] Eosinophils Auto (Bld) [#/Vo l]Ordered By: Davis Cervantes on 12-11-2021 Eosinophils (Bld) [#/Vol] 0.2 10*3/uL 0.0-0.45 [facility] Eosinophils/100 WBC Auto (Bl d)Ordered By: Davis Cervantes on 12-11-2021 Eosinophils/100 WBC (Bld) 2.9 % . [facility] Erythrocyte distribution wid th Auto (RBC) [Ratio]Ordered By: Davis Cervantes on 12-11-2021 Erythrocyte distribution width (RBC) [Ratio] 11.8 % 12.0-14.8 [facility] Estimated glomerular filtrat ion rate (GFR) non- AmericanOrdered By: Davis Cervantes on 12-11-2021 GFR/1.73 sq M.predicted among non-blacks MDRD (S/P/Bld) [Vol rate/Area] 60 mL/Min [facility] Hematocrit Auto (Bld) [Volum e fraction]Ordered By: Davis Cervantes on 12-11-2021 Hematocrit (Bld) [Volume fraction] 39.6 % 38.8-50.0 [facility] Ketones Auto test strip (U) [Mass/Vol]Ordered By: Davis Cervantes on 12-11-2021 Ketones (U) [Mass/Vol] Negative Negative [facility] - Hematology and Cell countsOrdered By: Davis Cervantes on 12-11-2021 Nucleated RBC/100 WBC (Bld) [Ratio] 0.0 % 0-0.5 [facility] Laboratory - UrinalysisOrder ed By: Davis Cervantes on 12-11-2021 Hyaline casts LM Ql (Urine sed) 0-8 [LPF] 0-8 [facility] Lymphocytes Auto (Bld) [#/Vo l]Ordered By: Davis Cervantes on 12-11-2021 Lymphocytes (Bld) [#/Vol] 1.9 10*3/uL 1.00-4.8 [facility] Lymphocytes/100 WBC Auto (Bl d)Ordered By: Davis Cervantes on 12-11-2021 Lymphocytes/100 WBC (Bld) 23.3 % . [facility] MCH Auto (RBC) [Entitic mass ]Ordered By: Davis Cervantes on 12-11-2021 MCH (RBC) [Entitic mass] 32.0 pg 27.5-35.2 [facility] MCHC Auto (RBC) [Mass/Vol]Or dered By: Davis Cervantes on 12-11-2021 MCHC (RBC) [Mass/Vol] 33.6 g/dL 32.5-35.6 [facility] MCV Auto (RBC) [Entitic vol] Ordered By: Davis Cervantes on 12-11-2021 MCV (RBC) [Entitic vol] 95.1 fL 83.5-101 [facility] Monocytes Auto (Bld) [#/Vol] Ordered By: Davis Cervantes on 12-11-2021 Monocytes (Bld) [#/Vol] 1.1 10*3/uL 0.0-0.8 [facility] Monocytes/100 WBC Auto (Bld) Ordered By: Davis Cervantes on 12-11-2021 Monocytes/100 WBC (Bld) 13.6 % . [facility] Neutrophils Auto (Bld) [#/Vo l]Ordered By: Davis Cervantes on 12-11-2021 Neutrophils (Bld) [#/Vol] 4.8 10*3/uL 1.8-7.7 [facility] Neutrophils/100 WBC Auto (Bl d)Ordered By: Davis Cervantes on 12-11-2021 Neutrophils/100 WBC (Bld) 59.0 % . [facility] Nitrite Test strip Ql (U)Ord ered By: Davis Cervantes on 12-11-2021 Nitrite Ql (U) Negative Negative [facility] No Panel InformationOrdered By: Davis Cervantes on 12-11-2021 Estimated GFR () > 60 mL/Min [facility] Comment on above: GFR estimated refere nce range: According to KDOQI guidelines, <60 ml/min/1.73m2 is sufficient to diagnose a patient with chronic kidney disease. Pharmacy Creatinine Clearance (Chem 57.67 [facility] Platelet mean volume Auto (B ld) [Entitic vol]Ordered By: Davis Cervantes on 12-11-2021 Platelet mean volume (Bld) [Entitic vol] 7.0 fL 6.6-10.1 [facility] Platelets Auto (Bld) [#/Vol] Ordered By: Davis Cervantes on 12-11-2021 Platelets (Bld) [#/Vol] 266 10*3/uL 150-450 [facility] Protein Auto test strip (U) [Mass/Vol]Ordered By: Davis Cervantes on 12-11-2021 Protein (U) [Mass/Vol] Negative Negative [facility] RBC Auto (Bld) [#/Vol]Ordere d By: Davis Cervantes on 12-11-2021 RBC (Bld) [#/Vol] 4.17 10*6/uL 3.90-5.60 [facility] Serum or plasma anion gap de terminationOrdered By: Davis Cervantes on 12-11-2021 Anion gap [Moles/Vol] 12.2 mmol/L 6.0-15.0 [facility] Serum or plasma calcium maggy urement (mass/volume)Ordered By: Davis Cervantes on 12-11-2021 Calcium [Mass/Vol] 9.0 mg/dL 8.2-10.2 [facility] Serum or plasma chloride duran surement (moles/volume)Ordered By: Davis Cervantes on 12-11-2021 Chloride [Moles/Vol] 96 mmol/L 95-114 [facility] Serum or plasma glucose maggy urement (mass/volume)Ordered By: Davis Cervantes on 12-11-2021 Glucose [Mass/Vol] 131 mg/dL 70-100 [facility] Comment on above: ADA recommended refe rence rangeRandom Glucose Reference Range is dependent on time and content of last meal. Glucose of more than 200 mg/dL in a nonstressed, ambulatory subject supports the diagnosis of Diabetes Mellitus. Serum or plasma potassium me asurement (moles/volume)Ordered By: Davis Cervantes on 12-11-2021 Potassium [Moles/Vol] 4.5 mmol/L 3.5-5.1 [facility] Serum or plasma sodium measu rement (moles/volume)Ordered By: Davis Cervantes on 12-11-2021 Sodium [Moles/Vol] 131 mmol/L 136-146 [facility] Serum or plasma total carbon dioxide measurement (moles/volume)Ordered By: Davis Cervantes on 12-11-2021 CO2 [Moles/Vol] 27.3 mmol/L 22.0-30.0 [facility] Serum or plasma urea nitroge n measurement (mass/volume)Ordered By: Davis Cervantes on 12-11-2021 Urea nitrogen [Mass/Vol] 20 mg/dL 9-23 [facility] Specific gravity Auto test s trip (U) [Rel density]Ordered By: Davis Cervantes on 12-11-2021 Specific gravity (U) [Rel density] 1.014 1.001-1.030 [facility] Squamous epithelial cells de tection in urine sediment by light microscopyOrdered By: Davis Cervantes on 12-11-2021 Epithelial cells.squamous LM Ql (Urine sed) 0-1 [HPF] 0-2 [facility] Urine bacteria detection by automated methodOrdered By: Davis Cervantes on 12-11-2021 Bacteria Auto Ql (U) None seen None Seen [facility] Urine clarity by refractomet ry automatedOrdered By: Davis Cervantes on 12-11-2021 Clarity Refractometry automated (U) Clear Clear [facility] Urine glucose measurement by automated test strip (mass/volume)Ordered By: Davis Cervantes on 12-11-2021 Glucose Auto test strip (U) [Mass/Vol] Normal mg/dL Normal [facility] Urine hemoglobin detection b y automated test stripOrdered By: Davis Cervantes on 12-11-2021 Hemoglobin Auto test strip Ql (U) 2+ Negative [facility] Urine leukocyte esterase det ection by automated test stripOrdered By: Davis Cervantes on 12-11-2021 Leukocyte esterase Auto test strip Ql (U) 2+ Negative [facility] Urobilinogen Auto test strip (U) [Mass/Vol]Ordered By: Davis Cervantes on 12-11-2021 Urobilinogen (U) [Mass/Vol] Normal mg/dL Normal [facility] pH Auto test strip (U)Ordere d By: Davis Cervantes on 12-11-2021 pH (U) 5.5 [pH] 5.0-9.0 [facility] ED NOTEon 11-27-2021 ED NOTE HNO ID: [id number] Author: Alyx Vergara RN Service: Nursing Author Type: Registered Nurse Type: ED Notes Filed: 11/26/2021 10:21 PM Note Text: Discharge instructions and follow up appointments reviewed. Pt verbalized understanding and states no concerns or questions at this time. VSS. Spoke with Asha about elevated BP. Stated that it's okay for pt to go and have him f/u with his PCP. [facility] ED NOTE HNO ID: [id number] Author: Alyx Vergara RN Service: Nursing Author Type: Registered Nurse Type: ED Notes Filed: 11/26/2021 10:10 PM Note Text: Replaced hamilton bag with leg bag. Normal [facility] Bacteria Ur Culton 2 Bacteria identified Cx Nom (U) [id number] Abnormal [facility] Comment on above: Order Comment: Speci men Type: URINE SPECIMEN [facility] Address: [address] [place] [address] Result Comment: >=10 0,000 CFU/ml Klebsiella oxytoca Performed By: #### 6 30-4, 83655-7 #### [facility] CLIA [id number] [address] [place] [address] [place] Bacterial susceptibility maldonado el (Isol)on 11-26-2021 Ampicillin [Susc] Resistant [facility] Comment on above: Order Comment: Order ing Facility[facility] Address: [address] [place] [address] Performed By: #### 6 30-4, 58402-8 #### [facility] CLIA [id number] [address] [place] [address] [place] Ampicillin+Sulbactam [Susc] 4 Susceptible Susceptible <=8 , Intermediate >8 , Resistant >16 [facility] Comment on above: Order Comment: Order ing Facility[facility] Address: [address] [place] [address] Performed By: #### 6 30-4, 24046-8 #### [facility] CLIA [id number] [address] [place] [address] [place] ceFAZolin [Susc] <=4 Susceptible Susceptible 0-16 , Intermediate <0 or >16 , Resistant >16 [facility] Comment on above: Order Comment: Order ing Facility[facility] Address: [address] [place] [address] Performed By: #### 6 30-4, 30386-2 #### [facility] CLIA [id number] [address] [place] [address] [place] Cefepime [Susc] <=1 Susceptible Susceptible <=2 , Intermediate >2 , Resistant >=16 [facility] Comment on above: Order Comment: Order ing Facility[facility] Address: [address] Performed By: #### 6 30-4, 03586-2 #### [facility] CLIA [id number] [address] [place] [address] [place] cefTRIAXone [Susc] <=1 Susceptible Susceptib le <=1 , Intermediate >1 , Resistant >=4 [facility] Comment on above: Order Comment: Order ing Facility[facility] Address: [address] [place] [address] Performed By: #### 6 30-4, 95861-9 #### [facility] CLIA [id number] [address] [place] [address] [place] Ciprofloxacin [Susc] <=0.25 Susceptible Suscept ible <0.5 , Intermediate >=.5 , Resistant >=1 [facility] Comment on above: Order Comment: Order ing Facility[facility] Address: [address] [place], [place] [id number] Performed By: #### 6 30-4, 97344-3 #### [facility] CLIA [id number] [address] [place] [address] [place] Ertapenem ROCIO [Susc] <=0.5 Susceptible Suscept ible <=0.5 , Intermediate >.5 , Resistant >1 [facility] Comment on above: Order Comment: Order ing Facility[facility] Address: [address] Performed By: #### 6 30-4, 51011-9 #### [facility] CLIA [id number] [address] [place] [address] [place] Gentamicin [Susc] <=1 Susceptible Susceptibl e <=4 , Intermediate >4 , Resistant >8 [facility] Comment on above: Order Comment: Order ing Facility[facility] Address: [address] [place], [place] [address] Performed By: #### 6 30-4, 65069-0 #### [facility] CLIA [id number] [address] [place] [address] Meropenem [Susc] <=0.25 Susceptible Susceptible <=1 , Intermediate >1 , Resistant >2 [facility] Comment on above: Order Comment: Order ing Facility[facility] Address: [address] [place] [address] Performed By: #### 6 30-4, 96645-9 #### [facility] CLIA [id number] [address] [place] [address] [place] Nitrofurantoin [Susc] 32 Susceptible Suscep tible <=32 , Intermediate >32 , Resistant >64 [facility] Comment on above: Order Comment: Order ing Facility[facility] Address: [address] [place] [address] Performed By: #### 6 30-4, 55386-7 #### [facility] CLIA [id number] [address] [place] [address] [place] Piperacillin+Sulbactam ROCIO [Susc] <=4 Susceptible Susceptible <=16 , Intermediate >16 , Resistant >64 [facility] Comment on above: Order Comment: Order ing Facility[facility] Address: [address] [place], [place] [address] Performed By: #### 6 30-4, 41828-8 #### [facility] CLIA [id number] [address] [place] [address] [place] Tobramycin [Susc] <=1 Susceptible Susceptibl e <=4 , Intermediate >4 , Resistant >8 [facility] Comment on above: Order Comment: Order ing Facility[facility] Address: [address] [place], [place] [address] Performed By: #### 6 30-4, 49764-7 #### [facility] CLIA [id number] [facility] [place] [address] [facility] [place] Trimethoprim+Sulfameth oxazole [Susc] <=20 Susceptible Susceptible <=40 , Resistant >40 [facility] Comment on above: Order Comment: Order ing Facility[facility] Address: [address] [place] [address] Performed By: #### 6 30-4, 03199-4 #### [facility] CLIA [id number] [address] ED NOTEon 11-26-2021 ED NOTE HNO ID: [id number] Author: Alyx Vergara RN Service: Nursing Author Type: Registered Nurse Type: ED Notes Filed: 11/26/2021 9:20 PM Note Text: Replaced hamilton per Asha DIXON. [facility] ED NOTE HNO ID: [id number] Author: Alyx Vergara RN Service: Nursing Author Type: Registered Nurse Type: ED Notes Filed: 11/26/2021 9:01 PM Note Text: Was instructed to bladder scan pt due to pt having no urine in replaced bag. Bladder scanned 261 mL's the first time. Then 214 mL's the second time. Made Asha ESQUIVEL) aware. [facility] ED NOTE HNO ID: [id number] Author: Alyx Vergara RN Service: Nursing Author Type: Registered Nurse Type: ED Notes Filed: 11/26/2021 9:49 PM Note Text: Flushed 20 mL Hamilton. No leaking noted around tube. [facility] ED PROV NOTEon 11-26-2021 ED PROV NOTE HNO ID: [id number] Author: Asha Clinton PA-C Service: ? Author Type: Physician Agriculture Inspector Type: ED Provider Notes Filed: 11/26/2021 10:26 [...] culture. Previous and only urine culture in [facility] on 11/07 had no growth. Given dose of Keflex. Prescription for this E scripted to pharmacy. Patient discharged with Hamilton in place, leg bag instructions. Elevated blood pressure noted and improved during stay. No CP, sob, dizziness or any other complaints. Recommend f/u with pcp for recheck. All questions and concerns addre (more content not included)... Normal [facility] Urinalysis complete panel (U )on 11-26-2021 Bacteria LM.HPF (Urine sed) [#/Area] Many Abnormal None Seen [facility] Comment on above: Order Comment: Speci men Type: URINE SPECIMEN [facility] Address: [address] [place] [address] Performed By: #### 6 30-4, 08876-8 #### [facility] CLIA [id number] [address] [place] [address] [place] Bilirubin Ql (U) Negative Normal Negative [facility]ital Comment on above: Order Comment: Speci men Type: URINE SPECIMEN [facility] Address: [address] [place] [address] Performed By: #### 6 30-4, 56359-1 #### [facility] CLIA [id number] [address] [place] [address] [place] Clarity (Unsp spec) Cloudy Abnormal Clear [facility] Comment on above: Order Comment: Speci men Type: URINE SPECIMEN [facility] Address: [address] [place] [address] Performed By: #### 6 30-4, 05198-5 #### [facility] CLIA [id number] [address] [place] [address] [place] Color (U) Yellow Normal Yellow [facility] Comment on above: Order Comment: Speci men Type: URINE SPECIMEN [facility] Address: [address] [place], [place] [address] Performed By: #### 6 30-4, 93241-8 #### [facility] CLIA [id number] [address] [place] [address] [place] Epithelial cells LM.HPF (Urine sed) [#/Area] Few Normal [facility] Comment on above: Order Comment: Speci men Type: URINE SPECIMEN [facility] Address: [address] [place], [place] [address] Performed By: #### 6 30-4, 34892-7 #### [facility] CLIA [id number] [address] [place] [address] [place] Glucose Test strip (U) [Mass/Vol] Negative Normal Negative [facility] Comment on above: Order Comment: Speci men Type: URINE SPECIMEN [facility] Address: [address] [place], [place] [address] Performed By: #### 6 30-4, 68083-4 #### [facility] CLIA [id number] [address] [place] [address] [place] Hemoglobin Ql (U) 2+ Abnormal Negative [facility] Comment on above: Order Comment: Speci men Type: URINE SPECIMEN [facility] Address: [address] [place] [address] Performed By: #### 6 30-4, 38954-8 #### [facility] CLIA [id number] [address] [place] [address] [place] Ketones Ql (U) Negative Normal Negative [facility] Comment on above: Order Comment: Speci men Type: URINE SPECIMEN [facility] Address: [address] [place] [address] Performed By: #### 6 30-4, 48250-9 #### [facility] CLIA [id number] [address] [place] [address] [place] Leukocyte esterase Test strip Ql (U) 3+ Abnormal Negative [facility] Comment on above: Order Comment: Speci men Type: URINE SPECIMEN [facility] Address: [address] [place], [place] [address] Performed By: #### 6 30-4, 17212-6 #### [facility] CLIA [id number] [address] [place] [address] [place] Nitrite Ql (U) Positive Abnormal Negative [facility] Comment on above: Order Comment: Speci men Type: URINE SPECIMEN [facility] Address: [address] [place] [address] Performed By: #### 6 30-4, 45035-9 #### [facility] CLIA [id number] [address] [place] [address] [place] pH (U) 5.5 [pH] Normal 5.0-8.0 [facility] Comment on above: Order Comment: Speci men Type: URINE SPECIMEN [facility] Address: [address] [place] [address] Performed By: #### 6 30-4, 13109-4 #### [facility] CLIA [id number] [address] [place] [address] [place] Protein (U) [Mass/Vol] Normal [facility] Comment on above: Order Comment: Speci men Type: URINE SPECIMEN [facility] Address: [address] [place] [address] Result Comment: Visi ble blood causes falsely elevated results for analyte Protein. Due to this limitation, Protein will not be reported for patients whose urine contains visible blood. Performed By: #### 6 30-4, 07060-5 #### [facility] CLIA [id number] [address] [place] [address] [place] RBC LM.HPF (Urine sed) [#/Area] 6-10 /HPF Abnormal 0-3 /HPF [facility] Comment on above: Order Comment: Speci men Type: URINE SPECIMEN [facility] Address: [address] [place] [address] Performed By: #### 6 30-4, 68738-5 #### [facility] CLIA [id number] [address] [place] [address] [place] Specific gravity (U) [Rel density] 1.009 Normal 1.005-1.030 [facility] Comment on above: Order Comment: Speci men Type: URINE SPECIMEN [facility] Address: [address] [place] [address] Performed By: #### 6 30-4, 73406-1 #### [facility] CLIA [id number] [address] [place] [address] [place] Urobilinogen Ql (U) 0.2 EU/dL Normal 0.2-1.0 EU/dL [facility] Comment on above: Order Comment: Speci men Type: URINE SPECIMEN [facility] Address: [address] [place] [address] Performed By: #### 6 30-4, 10123-4 #### [facility] CLIA [id number] [address] [place] [address] [place] WBC LM.HPF (Urine sed) [#/Area] 11-25 /HPF Abnormal 0-5 /HPF [facility] Comment on above: Order Comment: Speci men Type: URINE SPECIMEN [facility] Address: [address] [place] [address] Performed By: #### 6 30-4, 87797-5 #### [facility] CLIA [id number] [address] [place] [address] [place] Covid-19 PCR ([facility]on SARS-CoV-2 (COVID-19) RNA LUANNE+probe Ql (Unsp spec) Not detected Normal NOT DETECTED [facility] Comment on above: Result Comment: This test is not yet approved or cleared by the [place] FDA. When there are no FDA-approved or cleared tests available, and other criteria are met, FDA can make tests available under an emergency access mechanism called an Emergency Use Authorization (EUA). The EUA for this test is supported by the [place] of Health and Human Service's (HHS's) declaration [...] consistent with SARS-CoV-2. Performed By: #### [facility] #### [facility] [address] [address] [address] Juan Pablo Kaminski Bacteria Ur Culton 2 Bacteria identified Cx Nom (U) No growth (<1,000 CFU/ml) Normal [facility] Comment on above: Order Comment: Speci men Type: URINE SPECIMEN [facility] Address: [address] [place] [address] Performed By: #### 6 30-4 #### [facility] CLIA [id number] [address] [place] [address] [place] Basic metabolic 2000 panelon 11-07-2021 Anion gap [Moles/Vol] 10 mmol/L Normal 9-18 [facility] Comment on above: Order Comment: Speci men Type: URINE SPECIMEN [facility] Address: [address] [place] [address] Performed By: #### 6 30-4, 92055-9 #### [facility] CLIA [id number] [address] [place] [address] [place] Calcium [Mass/Vol] 9.1 mg/dL Normal 8.5-10.2 [facility] Comment on above: Order Comment: Speci men Type: URINE SPECIMEN [facility] Address: [address] [place], [place] [address] Performed By: #### 6 30-4, 85803-3 #### [facility] CLIA [id number] [address] [place] [address] [place] Chloride [Moles/Vol] 95 mmol/L Low 97-105 [facility] Comment on above: Order Comment: Speci men Type: URINE SPECIMEN [facility] Address: [address] [place] [address] Performed By: #### 6 30-4, 99689-3 #### [facility] CLIA [id number] [address] [place] [address] [place] CO2 [Moles/Vol] 25 mmol/L Normal 22-30 [facility] Comment on above: Order Comment: Speci men Type: URINE SPECIMEN [facility] Address: [address] [place] [address] Performed By: #### 6 30-4, 43413-0 #### [facility] CLIA [id number] [address] [place] [address] [place] Creatinine [Mass/Vol] 1.25 mg/dL High 0.73-1.22 [facility] Comment on above: Order Comment: Speci men Type: URINE SPECIMEN [facility] Address: [address] [place] [address] Performed By: #### 6 30-4, 17525-0 #### [facility] CLIA [id number] [address] [place] [address] ESTIMATED GLOMERULAR FILTRATION RATE 57 mL/min/1.73m??? Low >=60 [facility] Comment on above: Order Comment: Speci men Type: URINE SPECIMEN [facility] Address: [address] [place] [address] Result Comment: Annalise mated Glomerular Filtration Rate [...] actual GFR. Performed By: #### 6 30-4, 39841-9 #### [facility] CLIA [id number] [address] [place] [address] [place] Glucose [Mass/Vol] 129 mg/dL High 74-99 [facility] Comment on above: Order Comment: Speci men Type: URINE SPECIMEN [facility] Address: [address] [place] [address] Result Comment: The [place] [employer] (ADA) provides guidance for cutoff [...] Standards of Medical Care in Diabetes 2016, [place] [employer]. Diabetes Care. 2016.39(Suppl 1). Performed By: #### 6 30-4, 65999-6 #### [facility] CLIA [id number] [address] [place] [address] [place] Potassium [Moles/Vol] 4.6 mmol/L Normal 3.7-5.1 [facility] Comment on above: Order Comment: Speci men Type: URINE SPECIMEN [facility] Address: [address] [place] [address] Performed By: #### 6 30-4, 82347-6 #### [facility] CLIA [id number] [address] [place] [address] [place] Sodium [Moles/Vol] 130 mmol/L Low 136-144 [facility] Comment on above: Order Comment: Speci men Type: URINE SPECIMEN [facility] Address: [address] [place] [address] Performed By: #### 6 30-4, 70866-7 #### [facility] CLIA [id number] [address] [place] [address] [place] Urea nitrogen [Mass/Vol] 23 mg/dL Normal 9-24 [facility] Comment on above: Order Comment: Speci men Type: URINE SPECIMEN [facility] Address: [address] [place] [address] Performed By: #### 6 30-4, 27593-0 #### [facility] CLIA [id number] [address] [place] [address] [place] CBC W Auto Differential pane l (Bld)on 11-07-2021 Basophils/100 WBC (Bld) 0.0 % Normal [facility] Comment on above: Order Comment: Speci men Type: URINE SPECIMEN [facility] Address: [address] [place] [address] Performed By: #### 6 30-4, 63352-7 #### [facility] CLIA [id number] [address] [place] [address] [place] Differential cell count method Nom (Bld) Manual Normal [facility] Comment on above: Order Comment: Speci men Type: URINE SPECIMEN [facility] Address: [address] [place] [address] Performed By: #### 6 30-4, 64239-8 #### [facility] CLIA [id number] [address] [place] [address] [place] Eosinophils (Bld) [#/Vol] 0.10 10*3/uL Normal <0.46 [facility] Comment on above: Order Comment: Speci men Type: URINE SPECIMEN [facility] Address: [address] [place], [place] [address] Performed By: #### 6 30-4, 45355-5 #### [facility] CLIA [id number] [address] [place] [address] [place] Eosinophils/100 WBC (Bld) 1.0 % Normal [facility] Comment on above: Order Comment: Speci men Type: URINE SPECIMEN [facility] Address: [address] [place] [address] Performed By: #### 6 30-4, 57193-9 #### [facility] CLIA [id number] [address] [place] [address] [place] Erythrocyte distribution width (RBC) [Ratio] 11.5 % Normal 11.5-15.0 [facility] Comment on above: Order Comment: Speci men Type: URINE SPECIMEN [facility] Address: [address] [place] [address] Performed By: #### 6 30-4, 09599-8 #### [facility] CLIA [id number] [address] [place] [address] [place] Hematocrit (Bld) [Volume fraction] 39.8 % Normal 39.0-51.0 [facility] Comment on above: Order Comment: Speci men Type: URINE SPECIMEN [facility] Address: [address] [place] [address] Performed By: #### 6 30-4, 77748-0 #### [facility] CLIA [id number] [address] [place] [address] [place] Hemoglobin (Bld) [Mass/Vol] 13.4 g/dL Normal 13.0-17.0 [facility] Comment on above: Order Comment: Speci men Type: URINE SPECIMEN [facility] Address: [address] [place] [address] Performed By: #### 6 30-4, 52853-2 #### [facility] CLIA [id number] [address] [place] [address] [place] Lymphocytes (Bld) [#/Vol] 1.67 10*3/uL Normal 1.00-4.00 [facility] Comment on above: Order Comment: Speci men Type: URINE SPECIMEN [facility] Address: [address] [place] [address] Performed By: #### 6 30-4, 86786-3 #### [facility] CLIA [id number] [address] [place] [address] STATES [facility] Lymphocytes/100 WBC (Bld) 17.0 % Normal [facility] Comment on above: Order Comment: Speci men Type: URINE SPECIMEN [facility] Address: [address] [place] [address] Performed By: #### 6 30-4, 17358-7 #### [facility] CLIA [id number] [address] [place] [address] [place] MCH (RBC) [Entitic mass] 31.5 pg Normal 26.0-34.0 [facility] Comment on above: Order Comment: Speci men Type: URINE SPECIMEN [facility] Address: [address] [place] [address] Performed By: #### 6 30-4, 26611-2 #### [facility] CLIA [id number] [address] [place] [address] [place] MCHC (RBC) [Mass/Vol] 33.7 g/dL Normal 30.5-36.0 [facility] Comment on above: Order Comment: Speci men Type: URINE SPECIMEN [facility] Address: [address] [place], [place] [address] Performed By: #### 6 30-4, 49291-3 #### [facility] CLIA [id number] [address] [place] [address] [place] MCV (RBC) [Entitic vol] 93.4 fL Normal 80.0-100.0 [facility] Comment on above: Order Comment: Speci men Type: URINE SPECIMEN [facility] Address: [address] [place], [place] [address] Performed By: #### 6 30-4, 89272-3 #### [facility] CLIA [id number] [address] [place] [address] [place] Neutrophils (Bld) [#/Vol] 6.29 10*3/uL Normal 1.45-7.50 [facility] Comment on above: Order Comment: Speci men Type: URINE SPECIMEN [facility] Address: [address] [place] [address] Performed By: #### 6 30-4, 37940-5 #### [facility] CLIA [id number] [address] [place] [address] [place] Neutrophils/100 WBC (Bld) 64.0 % Normal [facility] Comment on above: Order Comment: Speci men Type: URINE SPECIMEN [facility] Address: [address] [place] [address] Performed By: #### 6 30-4, 88479-1 #### [facility] CLIA [id number] [address] [place] [address] [place] Nucleated RBC/100 WBC (Bld) [Ratio] 0.0 /100 WBC Normal [facility] Comment on above: Order Comment: Speci men Type: URINE SPECIMEN [facility] Address: [address] [place] [address] Performed By: #### 6 30-4, 58009-3 #### [facility] CLIA [id number] [address] [place] [address] [place] PLATELET ESTIMATE Adequate Normal [facility] Comment on above: Order Comment: Speci men Type: URINE SPECIMEN [facility] Address: [address] [place], [place] [address] Performed By: #### 6 30-4, 17521-5 #### [facility] CLIA [id number] [address] [place] [address] [place] Platelet mean volume (Bld) [Entitic vol] 10.2 fL Normal 9.0-12.7 [facility] Comment on above: Order Comment: Speci men Type: URINE SPECIMEN [facility] Address: [address] [place], [place] [address] Performed By: #### 6 30-4, 25728-4 #### [facility] CLIA [id number] [address] [place] [address] [place] Platelets (Bld) [#/Vol] 258 10*3/uL Normal 150-400 [facility] Comment on above: Order Comment: Speci men Type: URINE SPECIMEN [facility] Address: [address] [place], [place] [address] Performed By: #### 6 30-4, 08447-4 #### [facility] CLIA [id number] [address] [place] [address] [place] RBC (Bld) [#/Vol] 4.26 10*6/uL Normal 4.20-6.00 [facility] Comment on above: Order Comment: Speci men Type: URINE SPECIMEN [facility] Address: [address] [place], [place] [address] Performed By: #### 6 30-4, 14256-3 #### [facility] CLIA [id number] [address] [place] [address] [place] RED CELL MORPH Reviewed: unremarkable Normal [facility] Comment on above: Order Comment: Speci men Type: URINE SPECIMEN [facility] Address: [address] [place] [address] Performed By: #### 6 30-4, 73552-9 #### [facility] CLIA [id number] [address] [place] [address] [place] WAM - ABS BASO 0.00 k/uL Normal <0.11 [facility] Comment on above: Order Comment: Speci men Type: URINE SPECIMEN [facility] Address: [address] [place], [place] [address] Performed By: #### 6 30-4, 33571-2 #### [facility] CLIA [id number] [address] [place] [address] [place] WAM - ABS MONO 1.77 k/uL High <0.87 [facility] Comment on above: Order Comment: Speci men Type: URINE SPECIMEN [facility] Address: [address] [place], [place] [address] Performed By: #### 6 30-4, 58491-0 #### [facility] CLIA [id number] [address] [place] [address] [place] WAM - MONO% 18.0 % Normal [facility] Comment on above: Order Comment: Speci men Type: URINE SPECIMEN [facility] Address: [address] [place] [address] Performed By: #### 6 30-4, 03402-1 #### [facility] CLIA [id number] [address] [place] [address] [place] WAM ABSOLUTE NRBC <0.01 Normal <0.01 [facility] Comment on above: Order Comment: Speci men Type: URINE SPECIMEN [facility] Address: [address] [place], [place] [address] Performed By: #### 6 30-4, 31713-1 #### [facility] CLIA [id number] [address] [place] [address] [place] WBC (Bld) [#/Vol] 9.83 10*3/uL Normal 3.70-11.00 [facility] Comment on above: Order Comment: Speci men Type: URINE SPECIMEN [facility] Address: [address] [place] [address] Performed By: #### 6 30-4, 04908-3 #### [facility] CLIA [id number] [address] [place] ED NOTEon 11-07-2021 ED NOTE HNO ID: [id number] Author: Yoshi Schumacher RN Service: ? Author Type: Registered Nurse Type: ED Notes Filed: 11/07/2021 5:14 PM Note Text: Pt provided with discharged instructions. Medications gone over and all questions answered. Pt. Left with steady gait with friend for a ride. [facility] ED NOTE HNO ID: [id number] Author: Flaquita Donnelly RN Service: ? Author Type: Registered Nurse Type: ED Notes Filed: 11/07/2021 1:24 PM Note Text: Pt to ED for urinary retention. Pt had appointment with Urology on Wednesday, but was not able to be seen. Pt denies pain, but reports pressure in the bladder. Pt states he is not able to urinate completely and reports dribbling. [facility] ED PROV NOTEon 11-07-2021 ED PROV NOTE HNO ID: [id number] Author: Keely Gutierrez DO Service: Emergency Medicine [...] this Wednesday with his urologist out of [place] but was notified that his urologist had [...] Abnormal; Notable for the following components: Abs Dilling[place] 1.77 (*) <0.87 k/uL All other components [...] cysts one of which is mildly complex. Activities Attendant: LIANA Transcribe Date/Time: Nov 07 2021 2:57P [...] at th (more content not included)... Normal [facility] US KIDNEY/BLADDERon 11-08-19 US KIDNEY/BLADDER * * *Final Report* * * DATE OF EXAM: Nov 07 2021 2:52PM [facility] 1055 - US KIDNEY/BLADDER / [...] cysts one of which is mildly complex. Activities Attendant: PSCB Transcribe Date/Time: Nov 07 2021 2:57P Dictated by : NEHEMIAS COLBERT MD This examination was interpreted and the report reviewed and electronically signed by: NEHEMIAS COLBERT MD on Nov 07 2021 3:09PM EST [id number] Normal [facility] Urinalysis complete panel (U )on 11-07-2021 Bilirubin Ql (U) Negative Normal Negative [facility] Comment on above: Order Comment: Speci men Type: URINE SPECIMEN [facility] Address: [address] [place] [address] Performed By: #### 6 30-4, 34575-6 #### [facility] CLIA [id number] [address] [place] [address] [place] Clarity (Unsp spec) Clear Normal Clear [facility] Comment on above: Order Comment: Speci men Type: URINE SPECIMEN [facility] Address: [address] [place] [address] Performed By: #### 6 30-4, 34537-3 #### [facility] CLIA [id number] [address] [place] [address] [place] Color (U) Yellow Normal Yellow [facility] Comment on above: Order Comment: Speci men Type: URINE SPECIMEN [facility] Address: [address] [place] [address] Performed By: #### 6 30-4, 98352-8 #### [facility] CLIA [id number] [address] [place] Epithelial cells LM.HPF (Urine sed) [#/Area] Few Normal [facility] Comment on above: Order Comment: Speci men Type: URINE SPECIMEN [facility] Address: [address] [place] [address] Performed By: #### 6 30-4, 59729-3 #### [facility] CLIA [id number] [address] [place] [address] [place] Glucose Test strip (U) [Mass/Vol] Negative Normal Negative [facility] Comment on above: Order Comment: Speci men Type: URINE SPECIMEN [facility] Address: [address] [place] [address] Performed By: #### 6 30-4, 59153-5 #### [facility] CLIA [id number] [address] [place] [address] [place] Hemoglobin Ql (U) Negative Normal Negative [facility] Comment on above: Order Comment: Speci men Type: URINE SPECIMEN [facility] Address: [address] [place] [address] Performed By: #### 6 30-4, 70481-1 #### [facility] CLIA [id number] [address] [place] [address] [place] Hyaline casts (Urine sed) [#/Area] 1-3 /LPF Abnormal 0 /LPF [facility] Comment on above: Order Comment: Speci men Type: URINE SPECIMEN [facility] Address: [address] [place] [address] Performed By: #### 6 30-4, 14303-6 #### [facility] CLIA [id number] [address] [place] [address] [place] Ketones Ql (U) Trace Abnormal Negative [facility] Comment on above: Order Comment: Speci men Type: URINE SPECIMEN [facility] Address: [address] Performed By: #### 6 30-4, 82171-2 #### [facility] CLIA [id number] [address] [place] [address] [place] Leukocyte esterase Test strip Ql (U) Negative Normal Negative [facility] Comment on above: Order Comment: Speci men Type: URINE SPECIMEN [facility] Address: [address] [place] [address] Performed By: #### 6 30-4, 60401-9 #### [facility] CLIA [id number] [address] [place] [address] [place] Nitrite Ql (U) Negative Normal Negative [facility] Comment on above: Order Comment: Speci men Type: URINE SPECIMEN [facility] Address: [address] [place] [address] Performed By: #### 6 30-4, 46560-5 #### [facility] CLIA [id number] [address] [place] [address] [place] pH (U) 5.5 [pH] Normal 5.0-8.0 [facility] Comment on above: Order Comment: Speci men Type: URINE SPECIMEN [facility] Address: [address] [place] [address] Performed By: #### 6 30-4, 08391-6 #### [facility] CLIA [id number] [address] [place] [address] [place] Protein (U) [Mass/Vol] Negative Normal Negative [facility] Comment on above: Order Comment: Speci men Type: URINE SPECIMEN [facility] Address: [address] [place] [address] Performed By: #### 6 30-4, 36949-1 #### [facility] CLIA [id number] [address] [place] [address] [place] RBC LM.HPF (Urine sed) [#/Area] 0-3 /HPF Normal 0-3 /HPF [facility] Comment on above: Order Comment: Speci men Type: URINE SPECIMEN [facility] Address: [address] [place] [address] Performed By: #### 6 30-4, 26626-4 #### [facility] CLIA [id number] [address] [place] [address] [place] Specific gravity (U) [Rel density] 1.024 Normal 1.005-1.030 [facility] Comment on above: Order Comment: Speci men Type: URINE SPECIMEN [facility] Address: [address] [place] [address] Performed By: #### 6 30-4, 11941-7 #### [facility] CLIA [id number] [address] [place] [address] [place] Urobilinogen Ql (U) 0.2 EU/dL Normal 0.2-1.0 EU/dL [facility] Comment on above: Order Comment: Speci men Type: URINE SPECIMEN [facility] Address: [address] [place] [address] Performed By: #### 6 30-4, 64321-7 #### [facility] CLIA [id number] [address] [place] [address] [place] WBC LM.HPF (Urine sed) [#/Area] 0-5 /HPF Normal 0-5 /HPF [facility] Comment on above: Order Comment: Speci men Type: URINE SPECIMEN [facility] Address: [address] [place] [address] Performed By: #### 6 30-4, 95158-9 #### [facility] CLIA [id number] [address] [place] [address] [place] Ambulatory Visit Summaryon 0 10-28-2021 Ambulatory Visit Summary NORBERTO WASHINGTON :1940 Visit Date:10/28/2021 Ambulatory Visit Instructions Your Diagnosis BPH with urinary obstruction Nocturia Post-void dribbling Incomplete emptying of bladder Urinary incontinence Tests Performed Urnls Dip Stick Auto w/o Microscopy POC 74858 Your Care Team Attending Physician - Paul [...] [facility] [address], [place] [address]- Medications What How Much When Instructions Unchanged [...] Urnls Dip Stick Auto w/o Microscopy POC 72631 (10/28/2021) Bilirubin Urine Dipstick - Negative Blood Urine Dipstick - Negative Glucose Urine Dipstick - Negative Ketones Urine Dipstick - Negative Leukocytes Urine Dipstick - Negative Nitrite Urine Dipstick - Negative Protein Urine Dipstick - Negative Specific [employer] Urine Dipstick - 1.015 Urine Appearance Urine [...] Urina (more content not included)... Normal [facility] Patient Educationon 10-29-19 Patient Education Urology Benign [...] Follow these instructions at home: ? Take qanr-upn-khmxxbc and prescription medicines only as told by [...] You d (more content not included)... Normal [facility] Urology Office/Clinic Noteon 10-28-2021 Urology Office/Clinic Note [...] urine and/or bladder capacity by US- non-imaging 11844 PSA Total Urnls Dip Stick Auto w/o Microscopy POC 71980 Urology Procedure Order 2. Nocturia (R35.1: Nocturia) moderate, Variable 2-5 times per night Ordered: Measure Post Void residual urine and/or bladder capacity by US- non-imaging 51444 PSA Total Urology Procedure Order 3. Post-void dribbling (N39.43: Post-v (more content not included)... Normal [facility] Comment on above: Result Comment: Elec tronically Signed By: Billy Connolly MD, Paul Valdes\.br\Date and Time Signed: 10/28/21 08:47 EDT\.br\Electronically Co-Signed By: Jessie Rivera\.br\Date and Time Co-Signed: 10/28/21 08:39 EDT MICROALBUMIN URINEon Albumin, Urine 5.6 ug/mL Normal Not Estab. [facility] Comment on above: Performed By: #### M ALBLC #### [facility] [address] [address] [address] Juan Pablo Kaminski US CAROTID ART [...] SAMY TORRES Date: 2021-10-23 17:19 Normal [facility] CBC AUTO DIFFon 10-21-2021 BASO # 0.0 103/ul Normal 0.0-0.1 [facility] Comment on above: Performed By: #### A 1C #### [facility] [address] [place] [address] Dr. Juan Pablo Kaminski Basophils/100 WBC (Bld) 0.5 % Normal 0.2-2.0 [facility] Comment on above: Performed By: #### A 1C #### [facility] [address] [place] [address] Dr. Juan Pablo Kaminski EO # 0.3 103/ul Normal 0.0-0.7 [facility] Comment on above: Performed By: #### A 1C #### [facility] [address] [address] [address] Juan Pablo Kaminski Eosinophils/100 WBC (Bld) 3.6 % Normal 0.9-7.0 [facility] Comment on above: Performed By: #### A 1C #### [facility] [address] [place] [address] Dr. Juan Pablo Kaminski Erythrocyte distribution width (RBC) [Ratio] 11.1 % Normal 11.0-15.0 [facility] Comment on above: Performed By: #### A 1C #### [facility] [address] [place] [address] Dr. Juan Pablo Kaminski Hematocrit (Bld) [Volume fraction] 41.8 % Critically low 42.0-54.0 [facility] Comment on above: Performed By: #### A 1C #### [facility] [address] [place] [address] Dr. Juan Pablo Kaminski Hemoglobin (Bld) [Mass/Vol] 14.1 g/dL Normal 14.0-18.0 [facility] Comment on above: Performed By: #### A 1C #### [facility] [address] [place] [address] Dr. Juan Pablo Kaminski IG # 0.03 10e3/ul Normal 0.00-0.03 [facility] Comment on above: Performed By: #### A 1C #### [facility] [address] [place] [address] Dr. Juan Pablo Kaminski IG % 0.4 % Normal 0.0-0.5 [facility] Comment on above: Performed By: #### A 1C #### [facility] [address] [place] [address] Dr. Juan Pablo Kaminski LYMPH # 2.2 103/ul Normal 1.2-3.8 [facility] Comment on above: Performed By: #### A 1C #### [facility] [address] [place] [address] Dr. Juan Pablo Kaminski Lymphocytes/100 WBC (Bld) 29.4 % Normal 20.5-60.0 [facility] Comment on above: Performed By: #### A 1C #### [facility] [address] [place] [address] Dr. Juan Pablo Kaminski MANUAL DIFF REQ NO Normal [facility] Comment on above: Performed By: #### A 1C #### [facility] [address] [place] [address] Dr. Juan Pablo Kaminski MCH (RBC) [Entitic mass] 31.8 pg Normal 25.9-34.0 [facility] Comment on above: Performed By: #### A 1C #### [facility] [address] [place] [address] Dr. Juan Pablo Kaminski MCHC (RBC) [Mass/Vol] 33.7 g/dL Normal 29.9-35.2 [facility] Comment on above: Performed By: #### A 1C #### [facility] [address] [place] [address] Dr. Juan Pablo Kaminski MCV (RBC) [Entitic vol] 94.1 fL Critically high 80.0-94.0 [facility] Comment on above: Performed By: #### A 1C #### [facility] [address] [address] [address] Juan Pablo Kaminski MONO # 0.9 103/ul Critically high 0.3-0.[address] [facility] Comment on above: Performed By: #### A 1C #### [facility] [address] [address] [address] Juan Pablo Kaminski Monocytes/100 WBC (Bld) 11.7 % Normal 1.7-12.0 [facility] Comment on above: Performed By: #### A 1C #### [facility] [address] [place] [address] Dr. Juan Pablo Kaminski NEUT # 4.0 103/ul Normal 1.4-6.5 [facility] Comment on above: Performed By: #### A 1C #### [facility] [address] [place] [address] Dr. Juan Pablo Kaminski Neutrophils/100 WBC (Bld) 54.4 % Normal 43.0-75.0 [facility] Comment on above: Performed By: #### A 1C #### [facility] [address] [place] [address] Dr. Juan Pablo Kaminski Platelet mean volume (Bld) [Entitic vol] 8.6 fL Critically low 9.5-13.5 [facility] Comment on above: Performed By: #### A 1C #### [facility] [address] [place] [address] Dr. Juan Pablo Kaminski PLT 231 103/ul Normal 150-450 [facility] Comment on above: Performed By: #### A 1C #### [facility] [address] [place] [address] Dr. Juan Pablo Kaminski RBC 4.44 106/ul Critically low 4.70-6.[address] [facility] Comment on above: Performed By: #### A 1C #### [facility] [address] [place] [address] Dr. Juan Pablo Kaminski WBC 7.3 103/ul Normal 4.0-11.0 [facility] Comment on above: Performed By: #### A 1C #### [facility] [address] [address] [address] Juan Pablo Kaminski DIRECT LDLon 10-21-2021 Cholesterol in LDL [Mass/Vol] 106 mg/dL Normal [facility] Comment on above: Performed By: #### A LT, BMP, DLDL #### [facility] [address] [address] [address] Juan Pablo Kaminski DLDL NORMAL SEE BELOW Normal [facility] Comment on above: Result Comment: <100 mg/dl OPTIMAL 100 - 129 mg/dl NEAR OR ABOVE OPTIMAL 130 - 159 mg/dl BORDERLINE HIGH 160 - 189 mg/dl HIGH >190 mg/dl VERY HIGH Performed By: #### A ANA ROWLAND, DLDL #### [facility] [address] [address] [address] Juan Pablo Kaminski GLYCOHEMOGLOBIN A1Con 2021 ADA RECOMMENDATION SEE BELOW Normal [facility] Comment on above: Result Comment: ADA RECOMMENDED LIMIT 4.0 - 6.0 ADA THERAPEUTIC TARGET < 7.0 ACTION SUGGESTED > 7.0 Performed By: #### A 1C #### [facility] [address] [place] [address] Dr. Juan Pablo Kaminski Glucose [Mass/Vol] 120 mg/dL Normal [facility] Comment on above: Performed By: #### A 1C #### [facility] [address] [place] [address] Dr. Juan Pablo Kaminski HbA1c (Bld) [Mass fraction] 5.8 % Normal 4.5-6.2 [facility] Comment on above: Performed By: #### A 1C #### [facility] [address] [place] [address] Dr. Juan Pablo Kaminski PROF CHEM 8 (BAS METB)on Anion gap [Moles/Vol] 12.7 mmol/L Normal [facility] Comment on above: Performed By: #### A 1C #### [facility] [address] [place] [address] Dr. Juan Pablo Kaminski Calcium [Mass/Vol] 8.7 mg/dL Normal 8.5-10.1 [facility] Comment on above: Performed By: #### A 1C #### [facility] [address] [address] [address] Juan Pablo Kaminski Chloride [Moles/Vol] 98 mmol/L Normal 98-107 [facility] Comment on above: Performed By: #### A 1C #### [facility] [address] [place] [address] Dr. Juan Pablo Kaimnski CO2 [Moles/Vol] 28.0 mmol/L Normal 21.0-32.0 [facility] Comment on above: Performed By: #### A 1C #### [facility] [address] [place] [address] Dr. Juan Pablo Kaminski Creatinine [Mass/Vol] 1.07 mg/dL Normal 0.70-1.30 [facility] Comment on above: Performed By: #### A 1C #### [facility] [address] [place] [address] Dr. Juan Pablo Kaminski EGFR-AF BRAZILIAN >60 Normal >=60 [facility] Comment on above: Performed By: #### A 1C #### [facility] [address] [place] [address] Dr. Juan Pablo Kaminski EGFR-NON AF BRAZILIAN >60 Normal >=60 [facility] Comment on above: Performed By: #### A 1C #### [facility] [address] [place] [address] Dr. Juan Pablo Kaminski Glucose [Mass/Vol] 133 mg/dL Critically high 74-106 [facility] Comment on above: Performed By: #### A 1C #### [facility] [address] [place] [address] Dr. Juan Pablo Kaminski Potassium [Moles/Vol] 4.7 mmol/L Normal 3.5-5.1 [facility] Comment on above: Performed By: #### A 1C #### [facility] [address] [place] [address] Dr. Juan Pablo Kaminski Sodium [Moles/Vol] 134 mmol/L Critically low 136-145 [facility] Comment on above: Performed By: #### A 1C #### [facility] [address] [place] [address] Dr. Juan Pablo Kaminski Urea nitrogen [Mass/Vol] 17.0 mg/dL Normal 7.0-18.0 [facility] Comment on above: Performed By: #### A 1C #### [facility] [address] [place] [address] Dr. Juan Pablo Kaminski Urea nitrogen/Creatinine [Mass ratio] 15.9 mg/mg Normal [facility] Comment on above: Performed By: #### A 1C #### [facility] [address] [place] [address] Dr. Juan Pablo Kaminski SGPTon 10-21-2021 ALT [Catalytic activity/Vol] 31 U/L Normal 16-63 [facility] Comment on above: Performed By: #### A 1C #### [facility] [address] [place] [address] Dr. Juan Pablo Kaminski GLYCOHEMOGLOBIN A1Con 2021 ADA RECOMMENDATION SEE BELOW Normal [facility] Comment on above: Result Comment: ADA RECOMMENDED LIMIT 4.0 - 6.0 ADA THERAPEUTIC TARGET < 7.0 ACTION SUGGESTED > 7.0 Performed By: #### A 1C #### [facility] [address] [place] [address] Dr. Juan Pablo Kaminski Glucose [Mass/Vol] 131 mg/dL Normal [facility] Comment on above: Performed By: #### A 1C #### [facility] [address] [place] [address] Dr. Juan Pablo Kaminski HbA1c (Bld) [Mass fraction] 6.2 % Normal 4.5-6.2 [facility] Comment on above: Performed By: #### A 1C #### [facility] [address] [place] [address] Dr. Juan Pablo Kaminski Vital Signs Date Time Vital Sign Value Performing Clinician Denis coles 06-23-2023 09:16 Body height 190.5 cm DO [place] Work Phone: [facility] 06-23-2023 09:16 Body mass index (BMI) [Ratio] 28 kg/m2 DO [place] Work Phone: [facility] 06-23-2023 09:16-0400 Body weight 101.6 kg DO Campbell Ball Work Phone: [facility] 06-23-2023 09:16-0400 Diastolic blood pressure 64 mm[Hg] DO Campbell Ball Work Phone: [facility] 06-23-2023 09:16-0400 Heart rate 69 /min DO Campbell Ball Work Phone: [facility] 06-23-2023 09:16-0400 Respiratory rate 16 /min DO Campbell Ball Work Phone: [facility] 06-23-2023 09:16-0400 Systolic blood pressure 147 mm[Hg] DO Campbell Ball Work Phone: [facility] 05-21-2023 10:53-0500 Body height 190.5 cm DO Campbell Ball Work Phone: [facility] 05-21-2023 10:53-0500 Body mass index (BMI) [Ratio] 27 kg/m2 DO Campbell Ball Work Phone: [facility] 05-21-2023 10:53-0500 Body weight 98.03 kg DO Campbell Ball Work Phone: [facility] 05-21-2023 10:53-0500 Diastolic blood pressure 77 mm[Hg] DO Campbell Ball Work Phone: [facility] 05-21-2023 10:53-0500 Heart rate 76 /min DO Campbell Ball Work Phone: [facility] 05-21-2023 10:53-0500 Respiratory rate 12 /min DO Campbell Ball Work Phone: [facility] 05-21-2023 10:53-0500 Systolic blood pressure 133 mm[Hg] DO Campbell Ball Work Phone: [facility] 05-15-2023 13:10-0500 Body temperature 98.6 [degF] DO Campbell Ball Work Phone: [facility] 05-15-2023 13:10-0500 Diastolic blood pressure 90 mm[Hg] DO Campbell Ball Work Phone: [facility] 05-15-2023 13:10-0500 Heart rate 90 /min DO Campbell Ball Work Phone: [facility] 05-15-2023 13:10-0500 Respiratory rate 18 /min DO Campbell Ball Work Phone: [facility] 05-15-2023 13:10-0500 SaO2% (BldA) [Mass fraction] 97 % DO Campbell Ball Work Phone: [facility] 05-15-2023 13:10-0500 Systolic blood pressure 181 mm[Hg] DO Campbell Ball Work Phone: [facility] 05-15-2023 10:56-0500 Body height 190.5 cm DO Campbell Ball Work Phone: [facility] 05-15-2023 10:56-0500 Body weight 99.9 kg DO Campbell Ball Work Phone: [facility] 04-21-2023 14:30-0500 Body height 190.5 cm Campbell Ball Other [facility] [email or web address] Other 04-21-2023 14:30-0500 Body mass index (BMI) [Ratio] 28.07 kg/m2 Campbell Ball Other [employer] Other 04-21-2023 14:30-0500 Body weight 101.88 kg Campbell Ball Other [employer] Other 04-21-2023 14:30-0500 Diastolic blood pressure 68 mm[Hg] Campbell Ball Other [employer] Other 04-21-2023 14:30-0500 Respiratory rate 12 /min Campbell Ball Other [employer] Other 04-21-2023 14:30-0500 Systolic blood pressure 129 mm[Hg] Campbell Ball Other [employer] Other 03-17-2023 10:30-0500 Body height 190.5 cm Campbell Ball Other [employer] Other 03-17-2023 10:30-0500 Body mass index (BMI) [Ratio] 27.55 kg/m2 Campbell Ball Other [employer] Other 03-17-2023 10:30-0500 Body weight 99.97 kg Campbell Ball Other [employer] Other 03-17-2023 10:30-0500 Diastolic blood pressure 67 mm[Hg] Campbell Ball Other [employer] Other 03-17-2023 10:30-0500 Respiratory rate 12 /min Campbell Ball Other [employer] Other 03-17-2023 10:30-0500 Systolic blood pressure 159 mm[Hg] Campbell Ball Other [employer] Other 02-23-2023 09:30-0500 Body height 190.5 cm Campbell Ball Other [employer] Other 02-23-2023 09:30-0500 Body mass index (BMI) [Ratio] 28.02 kg/m2 Campbell Ball Other [employer] Other 02-23-2023 09:30-0500 Body weight 101.7 kg Campbell Ball Other [employer] Other 02-23-2023 09:30-0500 Diastolic blood pressure 78 mm[Hg] Campbell Ball Other [employer] Other 02-23-2023 09:30-0500 Respiratory rate 12 /min Campbell Ball Other [employer] Other 02-23-2023 09:30-0500 Systolic blood pressure 157 mm[Hg] Campbell Ball Other [employer] Other 02-19-2023 10:45-0500 Body height 190.5 cm Campbell Ball Other [employer] Other 02-19-2023 10:45-0500 Body mass index (BMI) [Ratio] 28 kg/m2 Campbell Ball Other [employer] Other 02-19-2023 10:45-0500 Body weight 101.61 kg Campbell Ball Other [employer] Other 02-19-2023 10:45-0500 Diastolic blood pressure 72 mm[Hg] Campbell Ball Other [employer] Other 02-19-2023 10:45-0500 Respiratory rate 12 /min Campbell Ball Other [employer] Other 02-19-2023 10:45-0500 Systolic blood pressure 144 mm[Hg] Campbell Ball Other [employer] Other 02-02-2023 13:37-0500 Body weight 102.06 kg Leticia Rukhsana RN [employer] Work Phone: [facility] 02-02-2023 13:37-0500 Diastolic blood pressure 70 mm[Hg] Leticia Hyde RN [employer] Work Phone: [facility] 02-02-2023 13:37-0500 Heart rate 65 /min Leticia Rukhsana RN [employer] Work Phone: [facility] 02-02-2023 13:37-0500 Systolic blood pressure 146 mm[Hg] Leticia Hyde RN [employer] Work Phone: [facility] 09-22-2022 12:15-0400 Body height 190.5 cm Campbell Ball Other [employer] Other 09-22-2022 12:15-0400 Diastolic blood pressure 82 mm[Hg] Campbell Ball Other [employer] Other 09-22-2022 12:15-0400 Systolic blood pressure 135 mm[Hg] Campbell Ball Other [employer] Other 09-17-2022 09:00-0400 Body height 190.5 cm Campbell Ball Other [employer] Other 09-17-2022 09:00-0400 Body mass index (BMI) [Ratio] 27.57 kg/m2 Campbell Ball Other [employer] Other 09-17-2022 09:00-0400 Body weight 100.06 kg Campbell Ball Other [employer] Other 09-17-2022 09:00-0400 Diastolic blood pressure 62 mm[Hg] Campbell Ball Other [employer] Other 09-17-2022 09:00-0400 Respiratory rate 12 /min Campbell Ball Other [employer] Other 09-17-2022 09:00-0400 Systolic blood pressure 128 mm[Hg] Campbell Ball Other [employer] Other 06-18-2022 10:00-0400 Body height 190.5 cm Campbell Ball Other [employer] Other 06-18-2022 10:00-0400 Body mass index (BMI) [Ratio] 28.02 kg/m2 Campbell Ball Other [employer] Other 06-18-2022 10:00-0400 Body weight 101.7 kg Campbell Ball Other [employer] Other 06-18-2022 10:00-0400 Diastolic blood pressure 62 mm[Hg] Campbell Ball Other [employer] Other 06-18-2022 10:00-0400 Respiratory rate 12 /min Campbell Ball Other [employer] Other 06-18-2022 10:00-0400 Systolic blood pressure 119 mm[Hg] Campbell Ball Other [employer] Other 04-08-2022 12:00-0500 Body height 190.5 cm Campbell Ball Other [employer] Other 04-08-2022 12:00-0500 Body mass index (BMI) [Ratio] 27.82 kg/m2 Campbell Ball Other [employer] Other 04-08-2022 12:00-0500 Body temperature 97.1 [degF] Campbell Ball Other [employer] Other 04-08-2022 12:00-0500 Body weight 100.97 kg Campbell Ball Other [employer] Other 04-08-2022 12:00-0500 Diastolic blood pressure 68 mm[Hg] Campbell Ball Other [employer] Other 04-08-2022 12:00-0500 SaO2% (BldA) [Mass fraction] 97 % Campbell Ball Other [employer] Other 04-08-2022 12:00-0500 Systolic blood pressure 124 mm[Hg] Campbell Ball Other [employer] Other 03-20-2022 10:00-0500 Body height 190.5 cm Campbell Ball Other [employer] Other 03-20-2022 10:00-0500 Body mass index (BMI) [Ratio] 27.95 kg/m2 Campbell Ball Other [employer] Other 03-20-2022 10:00-0500 Body weight 101.42 kg Campbell Ball Other [employer] Other 03-20-2022 10:00-0500 Diastolic blood pressure 60 mm[Hg] Campbell Ball Other [employer] Other 03-20-2022 10:00-0500 Respiratory rate 12 /min Campbell Ball Other [employer] Other 03-20-2022 10:00-0500 Systolic blood pressure 112 mm[Hg] Campbell Ball Other [employer] Other 01-08-2022 08:47-0400 Body weight 97.52 kg Leonard Dugan MD Work Phone: [facility] 01-08-2022 08:47-0400 Diastolic blood pressure 61 mm[Hg] Leonard Dugan MD Work Phone: [facility] 01-08-2022 08:47-0400 Heart rate 72 /min Leonard Dugan MD Work Phone: [facility] 01-08-2022 08:47-0400 Systolic blood pressure 139 mm[Hg] Leonard Dugan MD Work Phone: [facility] 12-26-2021 08:32-0400 Body temperature 98 [degF] DO Campbell Ball Work Phone: [facility] 12-26-2021 08:32-0400 Diastolic blood pressure 62 mm[Hg] DO Campbell Ball Work Phone: [facility] 12-26-2021 08:32-0400 Heart rate 75 /min DO Campbell Ball Work Phone: [facility] 12-26-2021 08:32-0400 Respiratory rate 18 /min DO Campbell Ball Work Phone: [facility] 12-26-2021 08:32-0400 SaO2% (BldA) [Mass fraction] 98 % DO Campbell Ball Work Phone: [facility] 12-26-2021 08:32-0400 Systolic blood pressure 146 mm[Hg] DO Campbell Ball Work Phone: [facility] 12-17-2021 16:22-0400 Body height 190.5 cm DO Campbell Ball Work Phone: [facility] 12-17-2021 16:22-0400 Body weight 97.52 kg DO Campbell Ball Work Phone: [facility] 12-17-2021 16:19-0400 Body temperature 98.4 [degF] DO Campbell Ball Work Phone: [facility] 12-17-2021 16:19-0400 Diastolic blood pressure 63 mm[Hg] DO Campbell Ball Work Phone: [facility] 12-17-2021 16:19-0400 Heart rate 66 /min DO Campbell Ball Work Phone: [facility] 12-17-2021 16:19-0400 Respiratory rate 16 /min DO Campbell Ball Work Phone: [facility] 12-17-2021 16:19-0400 SaO2% (BldA) [Mass fraction] 96 % DO Campbell Ball Work Phone: [facility] 12-17-2021 16:19-0400 Systolic blood pressure 135 mm[Hg] DO Campbell Ball Work Phone: [facility] 12-16-2021 14:41-0400 Diastolic blood pressure 62 mm[Hg] Leonard Dugan MD Work Phone: [facility] 12-16-2021 14:41-0400 Heart rate 69 /min Leonard Dugan MD Work Phone: [facility] 12-16-2021 14:41-0400 Respiratory rate 16 /min Leonard Dugan MD Work Phone: [facility] 12-16-2021 14:41-0400 Systolic blood pressure 141 mm[Hg] Leonard Dugan MD Work Phone: [facility] 12-11-2021 18:25-0400 Body temperature 97.5 [degF] DO Campbell Ball Work Phone: [facility] 12-11-2021 18:25-0400 Diastolic blood pressure 88 mm[Hg] DO Campbell Ball Work Phone: [facility] 12-11-2021 18:25-0400 Heart rate 67 /min DO Campbell Ball Work Phone: [facility] 12-11-2021 18:25-0400 Respiratory rate 20 /min DO Campbell Ball Work Phone: [facility] 12-11-2021 18:25-0400 SaO2% (BldA) [Mass fraction] 99 % DO Campbell Ball Work Phone: [facility] 12-11-2021 18:25-0400 Systolic blood pressure 175 mm[Hg] DO Campbell Ball Work Phone: [facility] 12-11-2021 16:57-0400 Body height 190.5 cm DO Campbell Ball Work Phone: [facility] 12-11-2021 16:57-0400 Body weight 98.5 kg DO Campbell Ball Work Phone: [facility] 12-10-2021 10:50-0400 Body weight 95.25 kg Nurse Kapoor Work Phone: [facility] 12-10-2021 10:50-0400 Diastolic blood pressure 80 mm[Hg] Nurse Emelia Work Phone: [facility] 12-10-2021 10:50-0400 Heart rate 59 /min Nurse Emelia Work Phone: [facility] 12-10-2021 10:50-0400 Systolic blood pressure 152 mm[Hg] Nurse Emelia Work Phone: [facility] 12-09-2021 14:27-0400 Body weight 95.25 kg [employer] [place] Work Phone: [facility] 12-09-2021 14:27-0400 Diastolic blood pressure 68 mm[Hg] [employer] [place] Work Phone: [facility] 12-09-2021 14:27-0400 Heart rate 70 /min [employer] [place] Work Phone: [facility] 12-09-2021 14:27-0400 Systolic blood pressure 164 mm[Hg] [employer] [place] Work Phone: [facility] 11-12-2021 11:23-0400 Body weight 96.16 kg Leonard Dugan MD Work Phone: [facility] 11-12-2021 11:23-0400 Diastolic blood pressure 73 mm[Hg] Leonard Dugan MD Work Phone: [facility] 11-12-2021 11:23-0400 Heart rate 56 /min Leonard Dugan MD Work Phone: [facility] 11-12-2021 11:23-0400 Systolic blood pressure 162 mm[Hg] Leonard Dugan MD Work Phone: [facility] Encounters Encounter Date Encounter Type Care Provider Facility Start: 06-23-2023 End: 06-23-2023 ambulatory DO Cambpell Naranjo Work Phone: [facility] Work Phone: Start: 06-23-2023 End: 06-23-2023 Patient encounter procedure DO Campbell Naranjo Work Phone: [facility] Work Phone: Start: 05-31-2023 Non-patient / Non-visit DO Lenin Naranjo Work Phone: [facility] Work Phone: Start: 05-21-2023 End: 05-21-2023 Patient encounter procedure DO Campbell Naranjo Work Phone: [facility] Work Phone: Start: 05-15-2023 End: 05-15-2023 Emergency department patient visit Campbell Naranjo Facility:[facility] Start: 05-15-2023 End: 05-15-2023 Emergency department patient visit DO Campbell Naranjo Work Phone: [facility] Work Phone: Start: 05-03-2023 Non-patient / Non-visit DO Lenin Naranjo Work Phone: [facility] Work Phone: Start: 04-30-2023 Non-patient / Non-visit DO Lenin Naranjo Work Phone: [facility] Work Phone: Start: 04-21-2023 End: 04-21-2023 ambulatory Campbell Naranjo Other [employer] Other Start: 04-21-2023 Transitional care manage srvc 14 day discharge Campbell Naranjo [facility] Start: 04-19-2023 End: 04-19-2023 ambulatory Campbell Naranjo Other [employer] Other Start: 04-19-2023 Telephone encounter Campbell [facility]INGH [facility] Start: 04-15-2023 End: 04-15-2023 ambulatory Campbell Naranjo Other [employer] Other Start: 04-15-2023 Telephone encounter [facility] Start: 03-17-2023 End: 03-17-2023 ambulatory Campbell Naranjo Other [employer] Other Start: 03-17-2023 Transitional care manage srvc 14 day discharge Campbell Naranjo [facility] Start: 03-04-2023 End: 03-04-2023 ambulatory Campbell Naranjo Other [employer] Other Start: 03-04-2023 Telephone encounter Campbell Naranjo [facility] Start: 02-23-2023 End: 02-23-2023 ambulatory Campbell Naranjo Other [employer] Other Start: 02-23-2023 Office outpatient vi sit 15 minutes Campbell Naranjo [facility] Start: 02-23-2023 Telephone encounter Campbell Naranjo [facility] Start: 02-19-2023 End: 02-19-2023 ambulatory Campbell Naranjo Other [employer] Other Start: 02-19-2023 Office outpatient vi sit 15 minutes Campbell Naranjo [facility] Start: 02-02-2023 End: 02-02-2023 ambulatory LETICIA MILIAN Facility:[facility] Start: 02-02-2023 End: 02-02-2023 Patient encounter procedure Leticia Milian RN [employer] Work Phone: Urology Comment on above: BPH with obstruction /lower urinary tract symptoms (Primary Dx); Recurrent UTI; Weak urinary stream Start: 01-19-2023 End: 01-19-2023 ambulatory LETICIA MILIAN Facility:[facility] Start: 01-13-2023 End: 01-13-2023 Emergency department patient visit Low Carter Facility:[facility] Start: 01-13-2023 End: 01-13-2023 Emergency department patient visit DO Campbell Naranjo Work Phone: [facility] Work Phone: Start: 12-21-2022 End: 12-21-2022 ambulatory Campbell Narajno Other [employer] Other Start: 12-21-2022 Telephone encounter Campbell Naranjo [facility] Start: 09-22-2022 End: 09-22-2022 ambulatory Campbell Naranjo Other [employer] Other Start: 09-22-2022 Office outpatient vi sit 15 minutes Campbell Quentin [facility] Start: 09-20-2022 End: 09-20-2022 ambulatory Cornell Baptiste Other [employer] Other Start: 09-20-2022 Encounter by Tabtor raissa Baptiste [facility] Start: 09-17-2022 End: 09-17-2022 ambulatory Campbell Quentin Other [employer] Other Start: 09-17-2022 Office outpatient vi sit 25 minutes Campbell Naranjo [facility] Start: 09-15-2022 End: 09-15-2022 ambulatory Cornell Baptiste Other [employer] Other Start: 09-15-2022 Encounter by Tabtor raissa Baptiste [facility] Start: 07-28-2022 End: 07-28-2022 ambulatory LETICIA MILIAN Facility:[facility] Start: 07-20-2022 End: 07-20-2022 ambulatory LETICIA MILIAN Facility:[facility] Start: 06-25-2022 End: 06-26-[address] CAMPBELL NARANJO Facility:[facility] Start: 06-18-2022 End: 06-18-2022 ambulatory Campbell Naranjo Other [employer] Other Start: 06-18-2022 Office outpatient vi sit 25 minutes Campbell Naranjo [facility] Start: 06-02-2022 End: 06-03-[address] CAMPBELL NARANJO Facility:[facility] Start: 04-08-2022 End: 04-08-2022 ambulatory Campbell Naranjo Other [employer] Other Start: 04-08-2022 Office outpatient vi sit 15 minutes Campbell Naranjo [facility] Start: 03-24-2022 End: 03-24-2022 ambulatory Campbell Naranjo Other [facility] [email or web address] Other Start: 03-24-2022 Telephone encounter Campbell Naranjo [facility] Start: 03-20-2022 Office outpatient vi sit 25 minutes Campbell Naranjo [facility] Start: 03-20-2022 End: 03-21-[address] CAMPBELL NARANJO [facility] [email or web address] Other Start: 01-08-2022 End: 01-08-2022 Patient encounter procedure Leonard Dugan MD Work Phone: Urology Comment on above: Chronic epididymitis (Primary Dx); Left hydrocele; Weak urinary stream; BPH without obstruction/lower urinary tract symptoms; Epididymitis Start: 01-07-2022 Refill Leonard Dugan MD Work Phone: Urology Comment on above: Refill Request Start: 12-26-2021 End: 12-26-2021 ambulatory DO Campbell Quentin Work Phone: [facility] Work Phone: Start: 12-26-2021 End: 12-26-2021 Discharged Recurring DO Campbell Quentin Work Phone: [facility]-Infusion Therapy - O/P Start: 12-25-2021 End: 12-26-[address] CAMPBELL NARANJO Facility:[facility] Start: 12-17-2021 End: 12-17-2021 Emergency department patient visit DO Campbell Quentin Work Phone: [facility]-Emergency Room Start: 12-16-2021 End: 12-16-2021 Patient encounter procedure Leonard Dugan MD Work Phone: Urology Comment on above: Retention of urine ( Primary Dx); Flaccid bladder Start: 12-15-2021 Telephone encounter Leticia puentes APRN.CNP Work Phone: Urology Comment on above: Patient Update Start: 12-11-2021 End: 12-11-2021 Emergency department patient visit DO Campbell Quentin Work Phone: [facility]-Emergency Room Start: 12-11-2021 Telephone encounter Leonard Dugan MD Work Phone: Urology Comment on above: Patient Update Start: 12-10-2021 End: 12-10-2021 Nursing evaluation of patient and report Nurse [facility]rol [facility] [place] Work Phone: Urology Comment on above: Urinary tract infect ion without hematuria, site unspecified (Primary Dx); Feeling of incomplete bladder emptying; Benign prostatic hyperplasia with urinary retention Start: 12-09-2021 End: 12-09-2021 Nursing evaluation of patient and report [facility] [place] Work Phone: Urology Comment on above: Urinary frequency (P rimary Dx); Urinary urgency; Urinary straining; Feeling of incomplete bladder emptying Start: 12-08-2021 Telephone encounter Leonard Dugan MD Work Phone: Urology Comment on above: Appointment (Resched ule catheter change) Start: 11-26-2021 End: 11-27-2021 Emergency department patient visit CAMPBELL NARANJO Facility:[facility] Start: 11-21-2021 Telephone encounter Leonard Dugan [...] End: 11-07-2021 Emergency department patient visit RAN HOUSTON JR Facility:[facility] Start: 10-23-2021 End: 10-24-[address] CAMPBELL NARANJO Facility:[facility] Start: 10-21-2021 End: 10-22-[address] CAMPBELL NARANJO Facility:[facility] Start: 08-08-2022 Adult health examination Campbell Naranjo Other [employer] Other Start: 07-17-2021 End: 07-18-[address] CAMPBELL NARANJO Facility: Start: 01-09-2020 End: 01-09-2020 Pre-procedure evaluation check Campbell Naranjo Other [employer] Other Procedures Date Procedure Procedure Detail Performing Clinician Start: 05-15-2023 Duplex scan of lower limb veins DO Campbell Naranjo Work Phone: Start: 10-14-2021 Depression screening Be juarez Naranjo Other Start: 03-23-2016 Screening for malign ant neoplasm of colon Campbell Naranjo Other Start: 01-30-2015 Screening for malign ant neoplasm of prostate Campbell Naranjo Other Urine culture DO Campbell Huang ll Work Phone: Urine culture DO Campbell abbott Work Phone: Urine culture DO Campbell abbott Work Phone: Plan of Treatment Date Care Activity Detail Author Start: 12-28-2022 Urine microalbumin profile DTaP,Tdap,Td Vaccine (3 - Tdap) [facility] Start: 11-13-2022 Covid-19 Vaccine ( season) Covid-19 Vaccine ( season) [facility] Start: 03-15-2022 Advance Directive Discussion Advance Directive Discussion [facility] Start: 03-15-2022 Depression Assessment Depression Ass essment [facility] Start: 01-08-2022 End: 03-10-2022 Bacteria identified in Urine by Culture URINE CULTURE Microbiology Routine Left hydrocele Chronic epididymitis Weak urinary stream BPH without obstruction/lower urinary tract symptoms Epididymitis Expected: 01/08/2022 (Approximate), Expires: 03/10/2022 [facility] Work Phone: Comment on above: Expected: 01/08/2022 (Approximate), Expires: 03/10/2022 Start: 01-08-2022 End: 03-10-2022 URINALYSIS, REFLEX MICROSCOPIC URINALYSIS, REFLEX MICROSCOPIC Lab Routine Left hydrocele Chronic epididymitis Weak urinary stream BPH without obstruction/lower urinary tract symptoms Epididymitis Expected: 01/08/2022 (Approximate), Expires: 03/10/2022 [facility] Work Phone: Comment on above: Expected: 01/08/2022 (Approximate), Expires: 03/10/2022 Start: 12-10-2021 End: 02-09-2022 Bacteria identified in Urine by Culture URINE CULTURE Microbiology Routine Urinary tract infection without hematuria, site unspecified Expected: 12/10/2021, Expires: 02/09/2022 [facility] Work Phone: Comment on above: Expected: 12/10/2021 , Expires: 02/09/2022 Start: 11-13-2021 Influenza vaccination INFLUENZA (#1) [facility] Start: 11-12-2021 URODYNAMICS URODYNAMICS Pr ocedures Routine 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 Expected: 11/12/2021 (Approximate) [facility] Work Phone: Comment on above: Expected: 11/12/2021 (Approximate) Start: 08-11-2021 COVID-19 VACCINE (5 - Booster for Pfizer series) COVID-19 VACCINE (5 - Booster for Pfizer series) [facility] Start: 03-15-2021 ADVANCE DIRECTIVE DISCUSSION ADVANCE DIRECTIVE DISCUSSION [facility] Start: 03-15-2021 DEPRESSION ASSESSMENT DEPRESSION ASS ESSMENT [facility] Start: 05-26-2012 3 comp foot exam completed DIABETIC FOOT EXAM [facility] Start: 1998 Hepatitis B Vaccine (1 of 3 - Risk 3-dose series) Hepatitis B Vaccine (1 of 3 - Risk 3-dose series) [facility] Start: 1998 RSV Vaccine (1 - 1-d ose 60+ series) RSV Vaccine (1 - 1-dose 60+ series) [facility] Start: 1988 SHINGRIX VACCINE (1 of 2) SHINGRIX VACCINE (1 of 2) [facility] Start: 1957 Urine microalbumin profile DTAP,TDAP,TD (1 - Tdap) [facility] Start: 1956 Hepatitis B surface antibody level LDL CHOLESTEROL [facility] Start: 1948 Hepatitis B screening URINE ALBUMIN:CREATININE RATIO [facility] Start: 1948 Hepatitis C antibody , confirmatory test DILATED RETINAL EXAM [facility] Start: 1944 PNEUMOCOCCAL: 65+ (1 - PCV) PNEUMOCOCCAL: 65+ (1 - PCV) [facility] Start: 1943 Hemoglobin A1c/Hemoglobin.total in Blood HBA1C [facility] Bacteria identified in Urine by Culture [facility] End: 02-02-2024 Bacteria identified in Urine by Culture URINE CULTURE Microbiology Routine Recurrent UTI 5 Occurrences starting 02/02/2023 until 02/02/2024 [facility] Work Phone: Comment on above: 5 Occurrences starti ng 02/02/2023 until 02/02/2024 Patient Education [facility] Work Phone: Patient referral [facility] Work Phone: End: 01-14-2024 Urinalysis complete panel - Urine URINALYSIS, WITH MICROSCOPIC Lab Routine Recurrent UTI 5 Occurrences starting 02/02/2023 until 01/14/2024 [facility] Work Phone: Comment on above: 5 Occurrences starti ng 02/02/2023 until 01/14/2024 [facility] Immunizations Immunization Date Immunization Notes Care Provider Jens eid 12-01-2022 influenza virus vaccine, unspecified formulation DO Campbell Naranjo Work Phone: [facility] 12-01-2022 influenza, high dose seasonal, preservative-free Campbell Naranjo Other [employer] Other 12-19-2021 influenza virus vaccine, split virus (incl. purified surface antigen) Campbell Naranjo Other [employer] [facility] [employer] Other 12-19-2021 influenza virus vaccine, unspecified formulation DO Campbell Naranjo Work Phone: [facility] 12-10-2020 influenza virus vaccine, split virus (incl. purified surface antigen) Campbell Naranjo Other [facility] [employer] Other 12-10-2020 influenza virus vaccine, unspecified formulation DO Campbell Naranjo Work Phone: [facility] 01-09-2020 influenza virus vaccine, split virus (incl. purified surface antigen) Campbell Naranjo Other [facility] [employer] Other 01-09-2020 influenza virus vaccine, unspecified formulation DO Campbell [employer] Work Phone: [facility] 01-14-2018 influenza virus vaccine, split virus (incl. purified surface antigen) Campbell Naranjo Other [facility] [employer] Other 01-14-2018 influenza virus vaccine, unspecified formulation DO [employer] Work Phone: [facility] 12-30-2016 influenza virus vaccine, split virus (incl. purified surface antigen) Campbell Naranjo Other [facility] [employer] Other 12-30-2016 influenza virus vaccine, unspecified formulation DO [employer] Work Phone: [facility] 03-16-2016 influenza virus vaccine, split virus (incl. purified surface antigen) Campbell Naranjo Other [facility] [employer] Other 03-16-2016 influenza virus vaccine, unspecified formulation DO Campbell [employer] Work Phone: [facility] 05-01-2015 pneumococcal conjuga te vaccine, 13 valent Campbell Naranjo Other [facility] 05-01-2015 pneumococcal Conjuga te, unspecified formulation; Translations: [Need for prophylactic vaccination against Streptococcus pneumoniae (pneumococcus)] Campbell Naranjo Other [facility] [employer] Other 12-28-2012 tetanus and diphther ia toxoids, adsorbed, preservative free, for adult use (5 Lf of tetanus toxoid and 2 Lf of diphtheria toxoid) Campbell Naranjo Other [facility] 01-28-2012 diphtheria, tetanus toxoids and acellular pertussis vaccine, unspecified formulation Campbell Naranjo Other [facility] 01-20-2012 pneumococcal polysaccharide vaccine, 23 valent Campbell Naranjo Other [facility] 05-18-2011 pneumococcal polysaccharide vaccine, 23 valent Campbell Naranjo Other [facility] Payers Date Payer Category Payer Self-pay 2016 Unknown KRISTIN FOSTER [place] DICARE SUPPLEMENT [id number] 2016-Present [phone] [address] [place] [address] Indemnity [id number] 2003 Medicare MEDICARE MEDICAR E A AND B [id number] 2003-Present [phone] [address] [address] [place] [address] Medicare [id number] 1959 Medicare [id number] 1959 Medicare [id number] 1938 Unknown [id number] 3 1938 Unknown [id number] 3 1938 Unknown [id number] 3 1938 Unknown [id number] 3 1938 Unknown [id number] 3 1938 Unknown [id number] 3 1938 Unknown [id number] 3 1938 Unknown [id number] 3 Medicare Medicare Outpatient [id number] Unknown [facility] Insur [id number] Unknown [id number] 1 Unknown [id number] 1 Social History Date Type Detail Facility Start: 10-24-2009 End: 12-16-2021 Tobacco smoking status MIIS Ex-smoker [facility] End: 03-15-1971 History of tobacco use Current smoker [facility] End: 03-15-1971 History of tobacco use Cigarette Smoker [facility] Start: 10-24-2009 End: 07-28-2022 Cigarettes smoked current (pack per day) - Reported 1.5 [facility] Start: 11-07-2021 End: 12-16-2021 Alcohol intake Current drinker of alcohol (finding) [facility] Start: 1940 Sex Assigned At Not on file C [facility] Start: 10-28-2021 End: 01-08-2022 Exposure to SARS-CoV-2 (event) Not sure [facility] Start: 12-11-2021 End: 05-15-2023 Tobacco smoking status MIIS Never smoked tobacco (finding) [facility] Start: 1940 Sex Assigned At Male F [facility] Start: 12-16-2021 Tobacco use and exposure Smokeless tobacco non-user [facility] Start: 12-16-2021 End: 07-28-2022 Sex Assigned At [employer] Other National Score (1-10 0), lower number is lower risk 61 [facility] Medical Equipment Procedure Code Equipment [...] - recommend Picc line and IV antibiotics [employer] Other 01-03-2024 Evaluation note* Encounter Date Diagnosis [...] to restart Amlodipine. Continue PAUL for now. [employer] Other 12-12-2023 Evaluation note* Encounter Date Diagnosis [...] and inserts to prevent callus formation.Fall precautions. [employer] Other 12-08-2023 Evaluation note* Encounter Date Diagnosis [...] ulcers. Recommend routine foot care w/ Podiatry [employer] Other 11-21-2023 NoteHNO ID: [id number] Author: Leticia Milian APRN.[employer] Service: ? Author Type: Nurse Practitioner Type: Progress Notes Filed: 02/02/2023 2:13 PM Note Text: Norberto Mccoy Sin [address] [facility] [address] HISTORY OF PRESENT ILLNESS: Seen 07/28/22 for [...] see lab Duration: BPH w obs/luts, UTI [facility] SYMPTOMS SCORE. 1. INCOMPLETE EMPTYING [...] only if s (more content not included)... [facility]11-21-2023 Miscellaneous Notes* Addendum Note - Leticia Milian APRN.CNP - 02/02/2023 2:16 PM ESTAddended by: LETICIA MILIAN on: 02/02/2023 02:16 PM Modules accepted: Orders documented in this encounterAdena [facility]11-21-[facility] History of Present illness Narrative* Leticia Milian APRN.CNP - 02/02/2023 1:40 PM EST Norberto Washington [address] [facility] [address] HISTORY OF PRESENT ILLNESS: Seen 07/28/22 for [...] see lab Duration: BPH w obs/luts, UTI [facility] SYMPTOMS SCORE. 1. INCOMPLETE EMPTYING [...] Making Level: 4 - Moderate Leticia Milian APRN.[employer] documented in this encounterAdena [facility]ike [facility] Center07-11-2023 Evaluation note* Encounter Date Diagnosis [...] w/ acute infection Requires no additional treatment [employer] Other 07-06-2023 Evaluation note* Encounter Date Diagnosis [...] exercise for 30 minutes, 3-5 times weekly. [employer] Other 05-16-2023 NoteHNO ID: [id number] Author: Leticia Milian APRN.[employer] Service: ? Author Type: Nurse Practitioner Type: Progress Notes Filed: 07/30/2022 4:34 PM Note Text: Norberto Washington [address] [facility] [address] HISTORY OF PRESENT ILLNESS: Seen 01/20/22 for [...] 07/20/22=neg UA 07/20/22=leuk esterase 250, wbc 11-25 [facility] SYMPTOMS SCORE. 1. INCOMPLETE EMPTYING [...] obs/luts, AUA, PVR Med (more content not included)...[facility]04-06-2023 Evaluation note* Encounter Date Diagnosis Assessment Notes [...] w/ antibiotics and treatment of urinary retention [employer] Other 03-21-2023 NotePROCEDURE: XR FOOT LT MIN [...] Electronically authenticated by: SAMY TORRES Date: 2022-06-02 15:48[facility]03-21-2023 NotePROCEDURE: XR FOOT LT MIN [...] Electronically authenticated by: SAMY TORRES Date: 2022-06-02 15:48[facility]01-25-2023 Evaluation note* Encounter Date Diagnosis [...] lesion was treated w/ cryotherapy w/o complications [employer] Other 01-06-2023 Evaluation note* Encounter Date Diagnosis [...] Mar, Hesitancy of micturition (ICD-10 - R39.11) [employer] Other [id number] History of Present illness Narrative* Zuleika Hackett - 01/08/2022 8:20 AM EDT Norberto Washington [address] [id number] Mr. Washington presents with chief complaints of: Enlarged L testicle. ED 11/07/21: PVR 179 cc, refused a catheter, scheduled to undergo a cystoscopy in [place] but was cancelled due to his urologist [...] epididymitis Hydroceles: None Spermatoceles: None Varicoceles: None [facility] SYMPTOMS SCORE. Date 01/08/2022 1. [...] complete. Leonard Dugan M.D. documented in this encounterAdena [facility] Center10-05-2022 Hospital Discharge instructions Additional Instructions Continue taking Flomax as prescribed Avoid drinking any fluids several hours before bed Call your urologist tomorrow for a follow-up appointment Return if you are unable to urinate, develop blood in your urine, abdominal pain, [facility] Work Phone: [phone]) 965-534310-04-2022 History of Present illness Narrative* Leonard Dugan MD - 12/16/2021 2:51 PM EDT Norberto Washington [address] [facility] [address] HISTORY OF PRESENT ILLNESS: ED 11/07/21: PVR 179 cc, refused a catheter, scheduled to undergo a cystoscopy in [place] but was cancelled due to his urologist [...] Otherwise, intermittent catheterization. Agreed indwelling catheter 18 bulgarian. Flomax will not work, no prostate tissue [...] well resected prostate (had 2 TURP) in [place] PLAN: (Management Options): -Start Flomax one cap [...] Moderate Leonard Dugan MD documented in this encounterAdena Pike [facility] Center10-03-2022 Miscellaneous Notes* Telephone Encounter - Valente Bell LPN - 12/15/2021 3:58 PM EDT Called and spoke to patient regarding message below. Patient states understanding to information provided. No further action required at this time. * Telephone Encounter - Leticia Milian APRN.CNP - 12/15/2021 10:13 AM EDT Please call and confirm that pt received [employer] message to start new script sent for antibiotic. Thanks Leticia MONDRAGON documented in this encounterAdena Pike [facility] Center09-29-2022 Miscellaneous Notes* Telephone Encounter - [...] be draining normally now. documented in this encounterAdena Pike [facility] Center09-28-2022 Nurse Note* Stephanie Kaur RN [...] hyperplasia with urinary retention documented in this encounterAdena [facility]ike [facility] Center09-27-2022 History of Present illness Narrative* Leonard Dugan MD - 12/09/2021 5:05 PM EDT [facility] PHYSICIAN INTERPRETATION: Urodynamics [...] contractility Leonard Dugan MD documented in this encounterAdena Pike [facility] Center09-27-2022 Nurse Note* Stephanie Kaur RN - 12/09/2021 3:57 PM EDT [facility] URODYNAMICS LAB URODYNAMIC [...] of incomplete bladder emptying documented in this encounterAdena Pike Medical Center09-26-2022 Miscellaneous Notes* Telephone Encounter - Stephanie Kaur RN - 12/08/2021 4:11 PM EDT LM for patient to reschedule catheter change for tomorrow. Last changed 11/26/21 in ED. Will be due for change on 12/23/21. Stephanie Kaur R.N. documented in this encounterAdena Pike Medical Center09-12-2022 Miscellaneous Notes* Telephone Encounter - [...] has been busy with his spouse at [facility] having to care for her needs and hadn't called earlier when it first started on Wednesday. He was hoping it would clear up but it has not, urine is between [place] tint & Brown and he does see small clots. Patient does have pain at the end of his Penis slight swelling noted (he has been applying Neosporin) Denies difficulty with urine draining into [place] bag, he does not have back pain Please advise documented in this encounterAdena Pike Medical Center08-31-2022 Nurse Note* Stephanie Kaur RN [...] Education Session: None Instruction Provided To: Patient Clinical Pharmacy Technician Present: not applicable Discipline: Nursing Learning Topic: [...] supervision. Stephanie Kaur RN documented in this encounterAdena Pike Medical Center08-31-2022 Procedure note* Leonard Dugan MD - 11/12/2021 11:00 AM EDTProcedure(s): CYSTOSCOPY Pre-Procedure Diagnose(s): BPH with obstruction/lower urinary tract symptoms Post-Procedure Diagnose(s): BPH with obstruction/lower urinary tract symptoms PROCEDURE: CYSTOSCOPY INDICATIONS: ED 11/07/21: PVR 179 cc, refused a catheter, scheduled to undergo a cystoscopy in [place] but was cancelled due to his urologist [...] Otherwise, intermittent catheterization. Agreed indwelling catheter 18 bulgarian. By signing my name below, I, Zuleika Hackett, attest that this documentation has been prepared under the direction and in the presence of Dr. Dugan. Fuad Bootheibe Provider Attestation: ILeonard M.D., personally performed the services described in this documentation. All medicalrecord entries made by the scribe were at my direction and in my presence. I have reviewed the chart and discharge instructions (if applicable) and agree that the record reflects my personal performance and is accurate and complete. Leonard Dugan M.D. documented in this encounterAdena Pike Medical Center08-29-2022 History of Present illness Narrative* Leonard Dugan MD - 11/10/2021 12:11 PM EDT Cysto with uroflow 11-12-21 ED 11/07/21: PVR 179 cc, refused a catheter, scheduled to undergo a cystoscopy in [place] but was cancelled due to his urologist was sick Pt underwent TURP x2 within a week AUA= 3-5 wach ROSAMARIA 11/10/21 - 10 gm, rubbery, no nodules US 11/07/21:= mildly complex renal cysts UA and culture 11-07-21= -ve May need UDS based on cysto [facility] Diagnosis BPH with obstruction/lower urinary tract symptoms- Primary Hypertrophy of prostate with urinary obstruction and other lower urinary tract symptoms (LUTS) Benign prostatic hyperplasia with urinary retention documented [facility]* Diagnosis Urinary frequency- Primary Urinary urgency Urgency of urination Urinary straining Straining on urination Feeling of incomplete bladder emptying Incomplete bladder emptying documented in this encounter [facility] note* Diagnosis Urinary tract infection without hematuria, site unspecified- Primary Feeling of incomplete bladder emptying Incomplete bladder emptying Benign prostatic hyperplasia with urinary retention [facility] noteNo assessment information availableSelect [facility] [place] Work Phone: Evaluation note* Diagnosis Retention of urine- Primary Retention of urine, unspecified Flaccid bladder Neurogenic bladder, NOS documented [facility]* Diagnosis Chronic epididymitis- Primary Left hydrocele Hydrocele, unspecified Weak urinary stream Slowing of urinary stream BPH without obstruction/lower urinary tract symptoms Hypertrophy of prostate without urinary obstruction and other lower urinary tract symptoms (LUTS) Epididymitis Orchitis and epididymitis, unspecified documented in [facility] noteNo InformationNofitzgib[facility] [place] Other Evaluation note* Diagnosis BPH with obstruction/lower urinary tract symptoms- Primary Hypertrophy of prostate with urinary obstruction and other lower urinary tract symptoms (LUTS) Recurrent UTI Urinary tract infection, site not specified Weak urinary stream Slowing of urinary stream documented in this [facility] note* Diagnosis Onset Date Resolution Status Chronic venous insufficiency of lower extremity acute Type 2 diabetes mellitus with hyperglycemia acute Chronic kidney disease acute Chronic venous insufficiency of lower extremity acute Elevated cholesterol acute HTN (hypertension) acute Type 2 diabetes mellitus with hyperglycemia acute [facility] Work Phone: History general Narrative - Reported* Type Description Date [...] cystoscopy 09.20.2019 Hospitalization History see surgical history [employer] Other Reason for referral (narrative)* Outpatient Procedure (Routine) - Pending Review Specialty Diagnoses / Procedures Referred By Contac t Referred To Contact [facility] Diagnoses 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 Procedures URODYNAMICS MAGGY POST-VOIDING RESIDUAL URINE&/BLADDER CAP Leonard Dugan MD [address] [place] [address] [facility] [address] [place] [address] Referral ID Status Reason Start Date Expiration Date Visits Requested Visits Authorized [id number] Pending Review Auto-Generat ed Referral 11/12/2021 11/12/2022 1 1 [facility] Summary Purpose Family History Relationship Condition Age at Onset Recorded Date/T augusta father Heart disease Unknown Unknown Not Specified Unknown Malignant neoplasm Unknown Advance Directives Advance Directive Response Recorded Date/ [...] Frequency Chief Complaint No BM/urinate,abd pa in Chief Complaint Leg pain ER follow up Amb Documentation CHECK UP Reason for Visit Chronic venous insuf ficiency of lower extremity Type 2 diabetes mellitus with hyperglycemia Chronic kidney disease Chronic venous insufficiency of lower extremity Elevated cholesterol HTN (hypertension) Type 2 diabetes mellitus with hyperglycemia Reason for Referral Reason Refer for diabetic f oot ulcer and calluses Diagnosis 1 Foot abscess, right (L02.611) Diagnosis 2 Callus of foot (L84) Diagnosis 3 Hammer toe of right foot (M20.41) Referral Organization [facility] tram Referring Provider First Name Campbell Referring Provider Last Name Quentin Referring Provider Specialty Internal Me dicine Referred Organization [facility] Referred Provider Jhon Tejada Referred Address [address], [place],[address] Referred Provider Specialty Podiatry - S urgical [...] section and content) DATE CREATED AUTHOR 11/04/2021 [facility] DATE CREATED AUTHOR AUTHOR'S ORGANIZ ATION 12/13/2021 [facility] DATE CREATED AUTHOR AUTHOR'S ORGANIZ ATION 06/25/2022 [facility] DATE CREATED AUTHOR AUTHOR'S ORGANIZ ATION 02/04/2023 [facility] DATE CREATED AUTHOR AUTHOR'S ORGANIZ ATION 05/27/2023 [facility] Source Comments (unrecognize d section and content) In the event this informatio n is protected by the Federal Confidentiality of Alcohol and Drug Abuse Patient Records regulations: The Federal rules restrict any use of the information to criminally investigate or prosecute any alcohol or drug abuse patient.[facility] the event this information is protected by the Federal Confidentiality of Alcohol and Drug Abuse Patient Records regulations: The Federal rules restrict any use of the information to criminally investigate or prosecute any alcohol or drug abuse patient.[facility] the event this information is protected by the Federal Confidentiality of Alcohol and Drug Abuse Patient Records regulations: The Federal rules restrict any use of the information to criminally investigate or prosecute any alcohol or drug abuse patient.[facility] the event this information is protected by the Federal Confidentiality of Alcohol and Drug Abuse Patient Records regulations: The Federal rules restrict any use of the information to criminally investigate or prosecute any alcohol or drug abuse patient.[facility] the event this information is protected by the Federal Confidentiality of Alcohol and Drug Abuse Patient Records regulations: The Federal rules restrict any use of the information to criminally investigate or prosecute any alcohol or drug abuse patient.[facility] the event this information is protected by the Federal Confidentiality of Alcohol and Drug Abuse Patient Records regulations: The Federal rules restrict any use of the information to criminally investigate or prosecute any alcohol or drug abuse patient.[facility] Center[facility] the event this information is protected by the Federal Confidentiality of Alcohol and Drug Abuse Patient Records regulations: The Federal rules restrict any use of the information to criminally investigate or prosecute any alcohol or drug abuse patient.[facility] Center[facility] the event this information is protected by the Federal Confidentiality of Alcohol and Drug Abuse Patient Records regulations: The Federal rules restrict any use of the information to criminally investigate or prosecute any alcohol or drug abuse patient.[facility] Center[facility] the event this information is protected by the Federal Confidentiality of Alcohol and Drug Abuse Patient Records regulations: The Federal rules restrict any use of the information to criminally investigate or prosecute any alcohol or drug abuse patient.[facility] Center[facility] the event this information is protected by the Federal Confidentiality of Alcohol and Drug Abuse Patient Records regulations: The Federal rules restrict any use of the information to criminally investigate or prosecute any alcohol or drug abuse patient.[facility] Center[facility] the event this information is protected by the Federal Confidentiality of Alcohol and Drug Abuse Patient Records regulations: The Federal rules restrict any use of the information to criminally investigate or prosecute any alcohol or drug abuse patient.[facility] Center[facility] the event this information is protected by the Federal Confidentiality of Alcohol and Drug Abuse Patient Records regulations: The Federal rules restrict any use of the information to criminally investigate or prosecute any alcohol or drug abuse patient.[facility] Care Teams (unrecognized sec tion and content) Team Status: Active Member Role Status Dates Campbell Naranjo , Primary Care Provider Active Team Status: Active Member Role Status Dates Campbell Naranjo , Primary Care Provide r, Attending Provider Active Start: April 30, 2023 Team Status: Active Member Role Status Dates Campbell Naranjo , Primary Care Provide r, Attending Provider Active Start: May 03, 2023 Team Status: Inactive Member Role Status Dates Campbell Naranjo , Primary Care Provider Active Start: May 15, 2023 End: May 15, 2023 Low Carter , Emergency Provider Active St art: May 15, 2023 End: May 15, 2023 Team Status: Inactive Member Role Status Dates Campbell Naranjo DO Primary Care Provide r, Attending Provider Active Start: May 21, 2023 End: May 21, 2023 Team Status: Active Member Role Status Dates Campbell Naranjo DO Primary Care Provider Active Start: May 31, 2023 TAMMY Fair Attending Provider Active Start : May 31, 2023 Team Status: Inactive Member Role Status Dates Campbell Naranjo , Primary Care Provide r, Attending Provider Active Start: June 23, 2023 End: June 23, 2023 Team Status: Active Member Role Status Dates Campbell Naranjo DO Primary Care Provider Active Team Status: Inactive Member Role Status Dates Campbell Naranjo , Primary Care Provider Active Low Carter , DO Emergency Provider Active Egg P[employer]urizer Relationship Specialty Start Date End Date Ran Houston Jr. PCP - General 10/10/09 [employer]izer Relationship Specialty Start Date End Date Ran Houston Jr. PCP - General 10/10/09 Egg P[employer]urizer Relationship Specialty Start Date End Date Ran Houston Jr. PCP - General 10/10/09 Egg P[employer]izer Relationship Specialty Start Date End Date Campbell Naranjo, DO [address] [place] [address] PCP - General Internal Medicine 11/26/21 Egg P[employer]urizer Relationship Specialty Start Date End Date Campbell Naranjo, DO [address] [place] [address] PCP - General Internal Medicine 11/26/21 Egg P[employer]urizer Relationship Specialty Start Date End Date Campbell Naranjo, DO [address] [facility] [place] [address] PCP - General Internal Medicine 11/26/21 Egg P[employer]urizer Relationship Specialty Start Date End Date Campbell Naranjo, DO [address] [facility] [place] [address] PCP - General Internal Medicine 11/26/21 Team Status: Inactive Member Role Status Dates Campbell Naranjo , DO Primary Care Provider Active Davis Cervantes MD Emergency Provider Active Egg P[employer]urizer Relationship Specialty Start Date End Date Campbell Naranjo, DO [address] [facility] [address] PCP - General Internal Medicine 11/26/21 Team Status: Inactive Member Role Status Dates Campbell Naranjo DO Primary Care Provider Active Sam Simons , Emergency Provider Active Team Status: Inactive Member Role Status Dates Campbell Naranjo , Primary Care Provider Active Sam Simons , Attending Provider Active Egg P[employer]urizer Relationship Specialty Start Date End Date Campbell Naranjo, DO [address] [facility] [address] PCP - General Internal Medicine 11/26/21 Egg P[employer]urizer Relationship Specialty Start Date End Date Campbell Naranjo, DO [address] [facility] [address] PCP - General Internal Medicine 11/26/21 Egg Pasteurizer Relationship Specialty Start Date End Date Campbell Naranjo, DO [address] [facility] [place] [address] PCP - General Internal Medicine 11/26/21 Team Status: Active Member Role Status Dates Campbell Naranjo DO Primary Care Provide r, Attending Provider Active Start: April 30, 2023 Team Status: Active Member Role Status Dates Campbell Naranjo DO Primary Care Provide r, Attending Provider Active Start: May 03, 2023 Team Status: Inactive Member Role Status Dates Campbell Naranjo DO Primary Care Provider Active Start: May 15, 2023 End: May 15, 2023 Low Carter DO Emergency Provider Active St art: May 15, 2023 End: May 15, 2023 Team Status: Inactive Member Role Status Dates Campbell Naranjo DO Primary Care Provide r, Attending Provider Active Start: May 21, 2023 End: May 21, 2023 Team Status: Active Member Role Status Dates Campbell Naranjo DO Primary Care Provider Active Start: May 31, 2023 TAMMY Fair Attending Provider Active Start : May 31, 2023 Team Status: Inactive Member Role Status Dates Campbell Naranjo DO Primary Care Provide r, Attending Provider Active Start: June 23, 2023 End: June 23, 2023 Reason for Visit (unrecogniz ed section and [...] InformationGoals may be documented in an alternate section FOR RECORDS PERTAINING TO PATIENTS WHO ARE [...] BE BASED ON THE PRIMARY CLINICAL RECORDS. [employer] [facility] provides no warranty or guarantee of the accuracy or completeness of information in this document.
== END 2023-07-02 10:00 | disposition home or self-care (01) ==
LOC: WC 09:59
PROVIDERS: PCP Internal Medicine; Visit Provider Podiatrist Foot & Ankle Surgery
DX: M79.671 Pain in right foot (principal); M79.672 Pain in left foot; E11.621 Type 2 diabetes mellitus with foot ulcer; L97.518 Non-pressure chronic ulcer of other part of right foot with other specified severity; L97.521 Non-pressure chronic ulcer of other part of left foot limited to breakdown of skin
CPT/HCPCS: 11042; 73630

== ENCOUNTER 2023-07-06 10:49 | Outpatient (OUT) | payer MEDICARE, SELFPAY ==
--- NOTE | 2023-07-06 10:53 | ECG_ITS ---
[facility] Test Date: 2023-07-06 Pat Name: EMILY WASHINGTON Department: Room: - Gender: Male Copy Preparer: : 1940 Requested By: SABINE MUNSON Order Number: [id number] Reading MD: LANE SAAVEDRA Measurements Intervals [place] Rate: 61 P: 20 TX: 218 QRS: 55 QRSD: 96 T: 68 QT: 383 QTc: 389 Interpretive Statements SINUS RHYTHM WITH FIRST DEGREE AV BLOCK Compared to ECG 09/18/2019 08:33:44 First degree AV block now present Sinus bradycardia no longer present Right-axis deviation no longer present Electronically Signed On 07-06-2023 18:05:[address] SAAVEDRA
--- NOTE | 2023-07-06 11:35 | P.GSHP_ITS ---
History of Present Illness History of Present Illness Chief complaint: non pressure ulcer left, osteomyelitis right Narrative: Patient presents for preadmission testing. Please see HPI from Dr. Tejada dated 07/02/2023. Review of Systems ROS Narrative Please see ROS from Dr. Tejada dated 07/02/2023. [facility] Medical History (Updated 07/06/23 @ 11:37 by Asha Erickson NP) Chronic osteomyelitis of right foot ?M86.671 - Other chronic osteomyelitis, right ankle and foot (ICD-10) Non-pressure chronic ulcer of other part of left foot with unspecified severity ?L97.529 - Non-pressure chronic ulcer of other part of left foot with unspecified severity (ICD-10) Hypothyroidism ?E03.9 - Hypothyroidism, unspecified (ICD-10) Acute renal insufficiency ?N28.9 - Disorder of kidney and ureter, unspecified (ICD-10) Iron deficiency anemia ?D50.9 - Iron deficiency anemia, unspecified (ICD-10) Cellulitis of foot, right ?L03.115 - Cellulitis of right lower limb (ICD-10) Diabetic ulcer of right fifth toe ?E11.621 - Type 2 diabetes mellitus with foot ulcer (ICD-10) ?L97.519 - Non-pressure chronic ulcer of other part of right foot with unspecified severity (ICD-10) HLD (hyperlipidemia) ?E78.5 - Hyperlipidemia, unspecified (ICD-10) Diabetic infection of right foot ?E11.628 - Type 2 diabetes mellitus with other skin complications (ICD-10) ?L08.9 - Local infection of the skin and subcutaneous tissue, unspecified (ICD-10) Neuropathy ?G62.9 - Polyneuropathy, unspecified (ICD-10) Fracture, ankle ?S82.899A - Other fracture of unspecified lower leg, initial encounter for closed fracture (ICD-10) Benign prostate hyperplasia ?N40.0 - Benign prostatic hyperplasia without lower urinary tract symptoms (ICD-10) Hypertension ?I10 - Essential (primary) hypertension (ICD-10) Diabetes ?E11.9 - Type 2 diabetes mellitus without complications (ICD-10) Surgical History (Updated 07/06/23 @ 11:11 by Asha Erickson NP) History of colonoscopy ?Z98.890 - Other specified postprocedural states (ICD-10) H/O rotator cuff surgery ?Z98.890 - Other specified postprocedural states (ICD-10) History of toe surgery ?Z98.890 - Other specified postprocedural states (ICD-10) History of appendectomy ?Z90.49 - Acquired absence of other specified parts of digestive tract (ICD- 10) Hx of tonsillectomy ?Z90.89 - Acquired absence of other organs (ICD-10) Family History (Updated 07/06/23 @ 11:11 by Asha Erickson NP) Mother Family history of cancer Father Family history of stroke Other Family history of aneurysm Social History Within the past year, how often did you have a drink containing alcohol: never Score interpretation: A score less than 4 is consistent with normal alcohol consumption. 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[employer] Known occupational exposures/hazards: No Highest level of school completed/degree received: Master's degree Are you now , , , , never or living with a partner: Little interest or pleasure in doing things: not at all Feeling down, depressed, or hopeless: not at all Feel stressed/tense/nervous/anxious/difficulty sleeping: not at all Do you think of yourself as: straight/heterosexual Gender Identity: male Meds Home Medications and Allergies Home Medications ?Medication ?Instructions ?Recorded ?Confirmed ?Type gabapentin 300 mg capsule 300 mg PO TID 03/08/23 07/06/23 History glipizide 2.5 mg tablet, extended 2.5 mg PO QAM 03/08/23 07/06/23 History release 24 hr lisinopril 20 mg tablet 20 mg PO .qhs 03/08/23 07/06/23 History lovastatin 40 mg tablet 40 mg PO .qhs 03/08/23 07/06/23 History tamsulosin 0.4 mg capsule 0.4 mg PO Q24H 03/08/23 07/06/23 History amlodipine 5 mg tablet 5 mg PO QNOON 07/06/23 07/06/23 History antiarthritic combination no.2 900 mg PO 07/06/23 History mg tablet (glucosamine-chondroitin) aspirin 81 mg tablet,delayed 81 mg PO DAILY 07/06/23 07/06/23 History release (Adult Aspirin Regimen) multivitamin (Daily Multi-Vitamin 1 tab PO DAILY 07/06/23 07/06/23 History tablet) turmeric 400 mg capsule mg PO 07/06/23 History Allergies Allergy/AdvReac Type Severity Reaction Status Date / Time ciprofloxacin [From Cipro] Allergy Severe Rash Verified 07/06/23 11:05 Sulfa (Sulfonamide Allergy Severe Rash Verified 07/06/23 11:05 Antibiotics) Exam Narrative Exam Narrative: Constitutional: Awake, alert, comfortable, well-appearing, nontoxic, interactive, vital signs as charted Head: Normocephalic, atraumatic Neck: Supple, normal appearance, normal range of motion, no meningeal signs, no lymphadenopathy Respiratory: No respiratory distress, breath sounds clear Cardiovascular: Regular rate and rhythm, strong and regular heart tones Psychiatric: Oriented ?3, normal affect Assessment and Plan Assessment and Plan (1) Non-pressure chronic ulcer of other part of left foot with unspecified severity: (2) Chronic osteomyelitis of right foot: Plan 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 Tejada 07/08/2023.
[2023-07-06 12:13] LABS: Anion Gap 13.5; BUN Creatinine Ratio 19.7; Carbon Dioxide 27.6 mmol/L (21.0-32.0); Chloride 98 mmol/L (98-107); Estimated GFR (African America >60 (>=60); Estimated GFR (Non-African Ame 59 (>=60); Glucose 109 mg/dL (74-106); Potassium 5.1 mmol/L (3.5-5.1); Sodium 134 mmol/L (136-145)
[2023-07-06 12:35] LABS: Basophils Percent Auto 0.4 % (0.2-2.0); Eosinophils Absolute Auto 0.2 10^3/uL (0.0-0.7); Eosinophils Percent Auto 2.3 % (0.9-7.0); Hematocrit 37.5 % (42.0-54.0); Hemoglobin 12.5 g/dL (14.0-18.0); Immature Granulocytes Abs Auto 0.03 10^3/uL (0.00-0.03); Immature Granulocytes Pct Auto 0.4 % (0.0-0.5); Lymphocytes Absolute Auto 1.8 10^3/uL (1.2-3.8); Lymphocytes Percent Auto 22.3 % (20.5-60.0); Mean Corpuscular HGB Conc 33.3 g/dL (29.9-35.2); Mean Corpuscular Hemoglobin 30.7 pg (25.9-34.0); Mean Corpuscular Volume 92.1 fL (80.0-94.0); Mean Platelet Volume 8.9 fL (9.5-13.5); Monocytes Absolute Auto 1.2 10^3/uL (0.3-0.8); Neutrophils Absolute Auto 4.8 10^3/uL (1.4-6.5); Neutrophils Percent Auto 59.6 % (43.0-75.0); Platelet Count 242 10^3/uL (150-450); Red Blood Count 4.07 10^6/uL (4.70-6.10); Red Cell Distribution Width 12.4 % (11.0-15.0)
== END 2023-07-06 10:50 | disposition home or self-care (01) ==
LOC: PST 10:50
PROVIDERS: PCP Internal Medicine; Visit Provider Podiatrist Foot & Ankle Surgery
DX: Z01.810 Encounter for preprocedural cardiovascular examination (principal); Z01.812 Encounter for preprocedural laboratory examination; Z01.818 Encounter for other preprocedural examination
CPT/HCPCS: 36415; 80048; 85025; 93005; G0463

== ENCOUNTER 2023-07-12 08:27 | Day surgery (SDC) | payer MEDICARE, SELFPAY ==
[2023-07-06 11:23] VITALS: BP 164/75; PULSE 72; TEMP 36.2; O2SAT 96; BMI 27.8
[2023-07-12 08:43] LABS: Glucometer 130 mg/dL (74-106)
--- OUTSIDE RECORDS SUMMARY | 2023-07-12 08:48 | XMS_ITS | CCD ---
Author Organization [facility] Care Team Providers Care Credit Underwriter Name Role Phone Rosemarie Connolly, Ran Latham [...] Care Provider DO [facility] Provider Allergies Allergy Classification Reported Allergen(s) Allergy Type Date of Onset Reaction(s) Facility (20 sources) Ciprofloxacin; Translations: [CIPROFLOXACIN] Drug Allergy 08-01-19 10 GI Upset, [facility] (20 sources) Sulfonamides (Antibiotic); Translations: [SULFA (SULFONAMIDE ANTIBIOTICS)] Propensity to adverse reactions 08-01-19 10 Rash, [facility] (1 source) Ciprofloxacin Drug Allergy [facility] (1 source) Sulfonamides (Antibiotic) Drug allergy (disorder) [facility] (1 source) Allergies Reconciled Propensity to adverse reactions Unknown [employer] Other (1 source) patient allergy list reviewed by nurse or physicia Propensity to adverse reactions 05-20-19 Comment:Done [employer] Other (1 source) Ciprofloxacin Drug Allergy 05-21-19 [facility] Repository (1 source) Sulfonamides (Antibiotic) Drug allergy (disorder) 05-21-19 [facility] Repository Medications Current Medications Medication Drug Class(es) Dates Sig (Normalized) Sig (Original) amLODIPine 5 mg oral tablet (20 sources) Dihydropyridine Calcium Channel Radha Start: 05-31-2023 [...] 2021 12:00am cephalexin 500 mg oral capsule (18 sources) Cephalosporin Antibacterial Start: 01-23-2022 End: 01-23-2022 [...] Comment on above: Take 1 capsule by [facility] twice daily. Take 1 capsule by [facility] three times daily [...] once daily. glucosamine 500 mg oral tablet (14 sources) Start: 05-21-2023 take 500 mg by [...] daily Lisinopril Active 20 MG PO Daily 90 90 June 17, 2023 12:03pm Start: 12-11-2021 End: 05-21-2023 take 10 mg by mouth once daily Lisinopril Discontinued 10 MG PO Daily December 11, 2021 12:00am May 21, 2023 12:03pm Start: 07-31-2009 lisinopril(ALEXANDRA NIVIL 10 MG TAB) Take one(1) tablet daily. 0 0 07/31/2009 Active Lisinopril 20 MG TAKE 1 TABLET DAILY Active Comment on above: Take one(1) tablet d aily. methylsulfonylmethane 1000 mg oral tablet (2 sources) Start: 2023 take 1 capsule by mouth twice daily Methylsulfonylmethane (Msm) 1,000 mg capsule Active 1000 MG PO Twice daily May 21, 2023 1:00am MSM 1500 MG (19 sources) MSM 1500 MG as d irected Orally Active Multi For Him - (4 sources) Multi For Him - as directed Orally Active Multivitamin (Daily Multi-Vitamin) tablet (2 sources) Start: 05-21-19 take 1 tablet by mouth [...] for 10 days. Turmeric Root-Yulisa Root Ext (2 sources) Start: 05-21-19 Turmeric Root-Yulisa Root Ext Active [...] mg / clavulanate 125 mg oral tablet (8 sources) Penicillin-class Antibacterial Start: 05-15-2023 End: 05-21-2023 [...] (20 sources) HMG-CoA Reductase Inhibitor Start: 05-25-2019 End: 06-17-2023 take 40 mg by mouth once daily Lovastatin Discontinued 40 MG PO Daily December 11, 2021 12:00am June 17, 2023 12:04pm Comment on above: Lovastatin Active 40 MG [...] on above: Take 1 capsule by mo [facility] once daily. Take one cap. daily trimethoprim 100 mg oral tablet (7 sources) Dihydrofolate Reductase Inhibitor Antibacterial Start: End: take 100 mg by mouth twice daily Trimethoprim Discontinued 100 MG PO Twice daily December 17, 2021 12:00am May 21, 2023 12:03pm Comment on above: [facility] for 5 days. Problems Active [...] depolarization] Onset: 06-23-2016 Chronic Chronic kidney disease (6 sources) Chronic kidney disease stage 3; Translations: [Chronic kidney disease, stage 3 unspecified] Onset: 08-23-2014 06-20-2023 Chronic Chronic ulcer of skin (14 sources) Ulcer of foot; Translations: [Non-pressure chronic ulcer of other part of unspecified foot with unspecified severity] Onset: 10-02-2009 10-02-2009 Chronic Complication of device; implant or graft (6 sources) Disorder of urethral catheter; Translations: [Breakdown [...] Vaccination given; Translations: [Encounter for immunization] Episodic Infective arthritis and osteomyelitis (except that caused by tuberculosis or sexually transmitted disease) (1 source) Osteomyelitis of right foot; Translations: [Osteomyelitis, unspecified] Onset: 03-15-2023 07-07-2023 Chronic Inflammatory conditions of male genital organs (5 sources) Chronic epididymitis; Translations: [Epididymitis] Resolved: 08-28-2019 Episodic Occlusion or stenosis of precerebral arteries (3 sources) Left carotid artery stenosis; Translations: [Occlusion and stenosis of left carotid artery] Chronic Osteoarthritis (20 sources) Osteoarthritis of right knee joint; Translations: [Unilateral primary osteoarthritis, right knee] Chronic Other aftercare (4 sources) H/O: high risk medication; Translations: [Other terminologist (current) drug therapy] Episodic Other aftercare (1 [...] veins and lymphatics (2 sources) Venous insufficiency of leg; Translations: [Venous insufficiency (chronic) (peripheral)] 05-20-2023 Episodic Other diseases of veins and lymphatics (2 sources) Stasis dermatitis; Translations: [Venous insufficiency (chronic) (peripheral)] 05-21-2023 Episodic Other diseases of veins and lymphatics (4 sources) Venous insufficiency (chronic) (peripheral); Translations: [Venous [...] Chronic Other nutritional; endocrine; and metabolic disorders (2 sources) Overweight; Translations: [Overweight] Episodic Other nutritional; endocrine; and metabolic disorders (2 sources) Overweight; Translations: [Overweight] Onset: 10-20-2021 06-23-2023 Episodic Other skin disorders (5 sources) Actinic keratosis; Translations: [Actinic keratosis] Episodic Other skin disorders (1 source) Callosity; Translations: [Corns and callosities] Episodic Other skin disorders (2 sources) Corns and callosities Episodic Retinal detachments; defects; vascular occlusion; and retinopathy (1 source) Serous retinal detachment; Translations: [Serous retinal detachment, unspecified eye] Episodic Skin and subcutaneous tissue infections (8 sources) Cellulitis of toe of left foot; [...] Other assisted (current) drug therapy; Translations: [OTH SENIOR CARE CURRENT DRUG THERAPY] Onset: 10-22-2021 Episodic Other [...] Test Name Value Interpretation Reference Range Facility Basophils Auto (Bld) [#/Vol] on 07-06-2023 Basophils (Bld) [#/Vol] 0.0 10 3/uL 0.0-0.1 [facility] Basophils/100 WBC Auto (Bld) on 07-06-2023 Basophils/100 WBC (Bld) 0.4 % 0.2-2.0 [facility] Eosinophils/100 WBC Auto (Bl d)on 07-06-2023 Eosinophils/100 WBC (Bld) 2.3 % 0.9-7.0 [facility] Erythrocyte distribution wid th Auto (RBC) [Ratio]on 07-06-2023 Erythrocyte distribution width (RBC) [Ratio] 12.4 % 11.0-15.0 [facility] Estimated glomerular filtrat ion rate (GFR) non- Americanon 07-06-2023 GFR/1.73 sq M.predicted among non-blacks MDRD (S/P/Bld) [Vol rate/Area] 59 mL/min/{1.73_m2} >=60 [facility] Hematocrit Auto (Bld) [Volum e fraction]on 07-06-2023 Hematocrit (Bld) [Volume fraction] 37.5 % 42.0-54.0 [facility] Hemoglobin [Mass/volume] in Bloodon 07-06-2023 Hemoglobin (Bld) [Mass/Vol] 12.5 g/dL 14.0-18.0 [facility] Laboratory - Chemistry and C hemistry - challengeon 07-06-2023 Calcium [Mass/Vol] 9.0 mg/dL 8.5-10.1 [facility] Chloride [Moles/Vol] 98 mmol/L 98-107 [facility] CO2 [Moles/Vol] 27.6 mmol/L 21.0-32.0 [facility] Creatinine [Mass/Vol] 1.17 mg/dL 0.70-1.30 [facility] GFR/1.73 sq M.predicted MDRD (S/P/Bld) [Vol rate/Area] mL/min/{1.73_m2} >=60 [facility] Glucose [Mass/Vol] 109 mg/dL 74-106 [facility] Potassium [Moles/Vol] 5.1 mmol/L 3.5-5.1 [facility] Sodium [Moles/Vol] 134 mmol/L 136-145 [facility] Urea nitrogen [Mass/Vol] 23.0 mg/dL 7.0-18.0 [facility] Urea nitrogen/Creatinine [Mass ratio] 19.7 mg/mg [facility] Laboratory - Hematology and Cell countson 07-06-2023 Immature granulocytes/100 WBC (Bld) 0.4 % 0.0-0.5 [facility] Leukocytes [#/volume] correc marshal for nucleated erythrocytes in Blood by Automated counon 07-06-2023 WBC corrected for nucl RBC Auto (Bld) [#/Vol] 8.0 10 3/uL 4.0-11.0 [facility] Lymphocytes Auto (Bld) [#/Vo l]on 07-06-2023 Lymphocytes (Bld) [#/Vol] 1.8 10 3/uL 1.2-3.8 [facility] Lymphocytes/100 WBC Auto (Bl d)on 07-06-2023 Lymphocytes/100 WBC (Bld) 22.3 % 20.5-60.0 [facility] MCH Auto (RBC) [Entitic mass ]on 07-06-2023 MCH (RBC) [Entitic mass] 30.7 pg 25.9-34.0 [facility] MCHC Auto (RBC) [Mass/Vol]on 07-06-2023 MCHC (RBC) [Mass/Vol] 33.3 g/dL 29.9-35.2 [facility] MCV Auto (RBC) [Entitic vol] on 07-06-2023 MCV (RBC) [Entitic vol] 92.1 fL 80.0-94.0 [facility] Monocytes Auto (Bld) [#/Vol] on 07-06-2023 Monocytes (Bld) [#/Vol] 1.2 10 3/uL 0.3-0.8 [facility] Monocytes/100 WBC Auto (Bld) on 07-06-2023 Monocytes/100 WBC (Bld) 15.0 % 1.7-12.0 [facility] Neutrophils Auto (Bld) [#/Vo l]on 07-06-2023 Neutrophils (Bld) [#/Vol] 4.8 10 3/uL 1.4-6.5 [facility] Neutrophils/100 WBC Auto (Bl d)on 07-06-2023 Neutrophils/100 WBC (Bld) 59.6 % 43.0-75.0 [facility] No Panel Informationon 07-05 Eosinophils # (Auto) 0.2 10 3/uL 0.0-0.7 [facility] Immature Granulocyte # (Auto) 0.03 10 3/uL 0.00-0.03 [facility] Platelet mean volume Auto (B ld) [Entitic vol]on 07-06-2023 Platelet mean volume (Bld) [Entitic vol] 8.9 fL 9.5-13.5 [facility] Platelets Auto (Bld) [#/Vol] on 07-06-2023 Platelets (Bld) [#/Vol] 242 10 3/uL 150-450 [facility] RBC Auto (Bld) [#/Vol]on RBC (Bld) [#/Vol] 4.07 10 6/uL 4.70-6.10 [facility] Serum or plasma anion gap de terminationon 07-06-2023 Anion gap [Moles/Vol] 13.5 mmol/L [facility] US venous duplex LE RTon [place] [address] Ultrasound Report Signed Patient: Norberto Washington MR#: [id number] : 1940 Acct:[id number] Age/Sex: 83 / M ADM Date: 05/15/23 Loc: ER Room: Type: [facility] ER Attending Dr: Ordering Provider: [...] Gus Wren MD05/16/2023 11:15 AM Dictation Location: [facility] Tech: Helen Gama Transcribed By: PAUL 05/16/23 111 Dictated By: Gus Wren MD 05/16/23 111 Signed By: 05/16/23 111 Normal [facility] Estimated glomerular filtrat ion rate (GFR) non- Americanon 05-03-2023 GFR/1.73 sq M.predicted among non-blacks MDRD (S/P/Bld) [Vol rate/Area] mL/min/{1.73_m2} >=60 [facility] Laboratory - Chemistry and C hemistry - challengeon 05-03-2023 Calcium [Mass/Vol] 8.5 mg/dL 8.5-10.1 [facility] Chloride [Moles/Vol] 100 mmol/L 98-107 [facility] CO2 [Moles/Vol] 27.6 mmol/L 21.0-32.0 [facility] Creatinine [Mass/Vol] 1.06 mg/dL 0.70-1.30 [facility] GFR/1.73 sq M.predicted MDRD (S/P/Bld) [Vol rate/Area] mL/min/{1.73_m2} >=60 [facility] Glucose [Mass/Vol] 135 mg/dL 74-106 [facility] Potassium [Moles/Vol] 4.1 mmol/L 3.5-5.1 [facility] Sodium [Moles/Vol] 136 mmol/L 136-145 [facility] Urea nitrogen [Mass/Vol] 19.0 mg/dL 7.0-18.0 [facility] Urea nitrogen/Creatinine [Mass ratio] 17.9 mg/mg [facility] No Panel Informationon 05-03 C-Reactive Protein, Quantitative <0.50 mg/dL <=0.50 [facility] Serum or plasma anion gap de terminationon 05-03-2023 Anion gap [Moles/Vol] 12.5 mmol/L [facility] Estimated glomerular filtrat ion rate (GFR) non- Americanon 04-30-2023 GFR/1.73 sq M.predicted among non-blacks MDRD (S/P/Bld) [Vol rate/Area] mL/min/{1.73_m2} >=60 [facility] Laboratory - Chemistry and C hemistry - challengeon 04-30-2023 Calcium [Mass/Vol] 8.7 mg/dL 8.5-10.1 [facility] Chloride [Moles/Vol] 101 mmol/L 98-107 [facility] CO2 [Moles/Vol] 29.2 mmol/L 21.0-32.0 [facility] Creatinine [Mass/Vol] 1.06 mg/dL 0.70-1.30 [facility] GFR/1.73 sq M.predicted MDRD (S/P/Bld) [Vol rate/Area] mL/min/{1.73_m2} >=60 [facility] Glucose [Mass/Vol] 93 mg/dL 74-106 [facility] Potassium [Moles/Vol] 4.6 mmol/L 3.5-5.1 [facility] Sodium [Moles/Vol] 136 mmol/L 136-145 [facility] Urea nitrogen [Mass/Vol] 20.0 mg/dL 7.0-18.0 [facility] Urea nitrogen/Creatinine [Mass ratio] 18.9 mg/mg [facility] No Panel Informationon 04-30 C-Reactive Protein, Quantitative 0.50 mg/dL <=0.50 [facility] Vancomycin Level Trough 11.0 ug/mL 5.0-20.0 [facility] Serum or plasma anion gap de terminationon 04-30-2023 Anion gap [Moles/Vol] 10.4 mmol/L [facility] CNOVon 02-02-2023 CNOV Office Visit (UROLLN ) NORBERTO WASHINGTON ([id number]) 1940 M Date Time Provider Department 02/02/23 1:30 PM LETICIA MILIAN UROLLN During your visit today, we recorded the following information about you: Pulse Blood pressure Weight 65/minute 146/70 102.1 kg Leticia Milian, SALES AND SERVICE REPRESENTATIVE.SLP TEACHER 02/02/2023 2:13 PM Signed Norberto Washington [address] [facility] [address] HISTORY OF PRESENT ILLNESS: Seen 07/28/22 for [...] see lab Duration: BPH w obs/luts, UTI [employer] SYMPTOMS SCORE. 1. INCOMPLETE EMPTYING [...] (more content not included)... Normal [facility] Bacteria Ur Culton 3 Bacteria identified Cx Nom (U) CULTURE, URINE: No growth (<1,000 CFU/ml) Normal [facility] Comment on above: Performed By: #### 6 30-4 #### [facility] CLIA [id number] [address] [place] [address] STATES [place] [facility] CNOVon 07-28-2022 CNOV Office Visit (UROLLN ) NORBERTO WASHINGTON ([id number]) 1940 M Date Time Provider Department 07/28/22 1:30 PM LETICIA MILIAN During your visit today, we recorded the following information about you: Pulse Blood pressure Weight 68/minute 142/55 100.7 kg Leticia Milian APRN.SLP TEACHER 07/30/2022 4:34 PM Addendum Norberto Washington [address] [facility] [address] HISTORY OF PRESENT ILLNESS: Seen 01/20/22 for [...] 07/20/22=neg UA 07/20/22=leuk esterase 250, wbc 11-25 [facility] SYMPTOMS SCORE. 1. INCOMPLETE EMPTYING [...] (more content not included)... Normal [facility] Bacteria Ur Culton 3 Bacteria identified Cx Nom (U) CULTURE, URINE: No growth (<1,000 CFU/ml) Normal [facility] Comment on above: Performed By: #### 6 30-4 #### [facility] CLIA [id number] [address] [place] [address] [place] Urinalysis complete panel (U )on 07-20-2022 Bilirubin Ql (U) Negative Normal Negative [facility] Comment on above: Order Comment: Speci men Type: URINE SPECIMEN Ordering Facility: [facility] Address: [address] [address] Performed By: #### 2 4356-8 #### [facility] CLIA [id number] [address] [place] [address] [place] Clarity (Unsp spec) Clear Normal Clear [facility] Comment on above: Order Comment: Speci men Type: URINE SPECIMEN Ordering Facility: [facility] Address: [address] [address] Performed By: #### 2 4356-8 #### [facility] CLIA [id number] [address] [place] [address] [place] Color (U) Yellow Normal Yellow [facility] Comment on above: Order Comment: Speci men Type: URINE SPECIMEN Ordering Facility: [facility] Address: [address] Performed By: #### 2 4356-8 #### [facility] CLIA [id number] [address] [place] [address] [place] Epithelial cells LM.HPF (Urine sed) [#/Area] Few Normal [facility] Comment on above: Order Comment: Speci men Type: URINE SPECIMEN Ordering Facility: [facility] Address: [address] [address] Performed By: #### 2 4356-8 #### [facility] CLIA [id number] [facility] [place] [address] [place] Glucose Test strip (U) [Mass/Vol] Negative Normal Trace, Negative [facility] Comment on above: Order Comment: Speci men Type: URINE SPECIMEN Ordering Facility: [facility] Address: [address] Performed By: #### 2 4356-8 #### [facility] CLIA [id number] [address] [place] [address] [place] Hemoglobin Ql (U) Negative Normal Negative, Trace [facility] Comment on above: Order Comment: Speci men Type: URINE SPECIMEN Ordering Facility: [facility] Address: [address] Performed By: #### 2 4356-8 #### [facility] CLIA [id number] [address] [place] Ketones Ql (U) Negative Normal Trace, Negative [facility] Comment on above: Order Comment: Speci men Type: URINE SPECIMEN Ordering Facility: [facility] Address: [address] Performed By: #### 2 4356-8 #### [facility] CLIA [id number] [address] [place] [address] [place] Leukocyte esterase Test strip Ql (U) 250 Ayaz/uL Abnormal Negative, 25 Ayaz/uL [facility] Comment on above: Order Comment: Speci men Type: URINE SPECIMEN Ordering Facility: [facility] Address: [address] Performed By: #### 2 4356-8 #### [facility] CLIA [id number] [address] [place] [address] [place] Nitrite Ql (U) Negative Normal Negative [facility] Comment on above: Order Comment: Speci men Type: URINE SPECIMEN Ordering Facility: [facility] Address: [address] Performed By: #### 2 4356-8 #### [facility] CLIA [id number] [address] [place] [address] [place] pH (U) 5.5 [pH] Normal 5.0-8.0 [facility] Comment on above: Order Comment: Speci men Type: URINE SPECIMEN Ordering Facility: [facility] Address: [address] [place] [address] Performed By: #### 2 4356-8 #### [facility] CLIA [id number] [address] [place] [address] [place] Protein (U) [Mass/Vol] Negative Normal Trace , Negative [facility] Comment on above: Order Comment: Speci men Type: URINE SPECIMEN Ordering Facility: [facility] Address: [address] [place] [address] Performed By: #### 2 4356-8 #### [facility] CLIA [id number] [address] [place] [address] [place] RBC LM.HPF (Urine sed) [#/Area] 0-3 /HPF Normal 0-3 /HPF [facility] Comment on above: Order Comment: Speci men Type: URINE SPECIMEN Ordering Facility: [facility] Address: [address] [place] [address] Performed By: #### 2 4356-8 #### [facility] CLIA [id number] [address] [place] [address] [place] Specific gravity (U) [Rel density] 1.016 Normal 1.005-1.030 [facility] Comment on above: Order Comment: Speci men Type: URINE SPECIMEN Ordering Facility: [facility] Address: [address] [place], [place] [id number] Performed By: #### 2 4356-8 #### [facility] CLIA [id number] [facility] [place] [address] [place] Urobilinogen Ql (U) Negative Normal Negative [facility] Comment on above: Order Comment: Speci men Type: URINE SPECIMEN Ordering Facility: [facility] Address: [address] [address] Performed By: #### 2 4356-8 #### [facility] CLIA [id number] [address] [place] [address] [place] WBC LM.HPF (Urine sed) [#/Area] 11-25 /HPF Abnormal 0-5 /HPF [facility] Comment on above: Order Comment: Speci men Type: URINE SPECIMEN Ordering Facility: [facility] Address: [address] [address] Performed By: #### 2 4356-8 #### [facility] CLIA [id number] [facility] [place] [address] [place] GLYCOHEMOGLOBIN A1Con 2022 ADA RECOMMENDATION SEE BELOW Normal [facility] Comment on above: Result Comment: ADA RECOMMENDED LIMIT 4.0 - 6.0 ADA THERAPEUTIC TARGET < 7.0 ACTION SUGGESTED > 7.0 Performed By: #### A 1C #### [facility] [address] [address] [address] Juan Pablo Kaminski Glucose [Mass/Vol] 128 mg/dL Normal [facility] Comment on above: Performed By: #### A 1C #### [facility] [address] [address] [address] Juan Pablo Kaminski HbA1c (Bld) [Mass fraction] 6.1 % Normal 4.5-6.2 [facility] Comment on above: Performed By: #### A 1C #### [facility] [address] [address] [address] Juan Pablo Kaminski A1C with Estimated Average G luon 03-20-2022 A1C with Estimated Average Glu 128 [facility] [employer] Other A1C with Estimated Average Glu [employer] Other HbA1c (Bld) [Mass fraction] 6.1 % Normal 4.5-6.2 [employer] Other Comment on above: Performed By: #### A 1C #### [facility] [address] [place], [place] [address] Dr. Juan Pablo Kaminski GLYCOHEMOGLOBIN A1Con 2022 ADA RECOMMENDATION SEE BELOW Normal [facility] Comment on above: Result Comment: ADA RECOMMENDED LIMIT 4.0 - 6.0 ADA THERAPEUTIC TARGET < 7.0 ACTION SUGGESTED > 7.0 Performed By: #### A 1C #### [facility] [address] [address] [address] Juan Pablo Kaminski Glucose [Mass/Vol] 128 mg/dL Normal [facility] Comment on above: Performed By: #### A 1C #### [facility] [address] [place] [address] Dr. Juan Pablo Kaminski US SCROTUM W [...] LEIDY PEREIRA Date: 2021-12-25 18:32 Normal [facility] Urine culture routineOrdered By: Sam Simons on 12-19-2021 Bacteria identified Cx Nom (U) Pseudomonas aeruginosa [facility] Automated erythrocytes count in urine sediment (number/area)Ordered By: Sma Simons on 12-17-2021 RBC Auto (Urine sed) [#/Area] 1-2 [HPF] 0-4 [facility] Automated leukocytes count i n urine sediment (number/area)Ordered By: Sam Simons on 12-17-2021 WBC Auto (Urine sed) [#/Area] 20-49 [HPF] 0-4 [facility] Bilirubin Test strip Ql (U)O rdered By: Sam Simons on 12-17-2021 Bilirubin Ql (U) Negative Negative [facility] Color Auto (U)Ordered By: Micheal Simons on 12-17-2021 Color (U) Yellow Yellow [facility] Ketones Auto test strip (U) [Mass/Vol]Ordered By: Sam Simons on 12-17-2021 Ketones (U) [Mass/Vol] Negative Negative Fi [facility] - UrinalysisOrder ed By: Sam Simons on 12-17-2021 Hyaline casts LM Ql (Urine sed) 0-8 [LPF] 0-8 [facility] Nitrite Test strip Ql (U)Ord ered By: Sam Simons on 12-17-2021 Nitrite Ql (U) Negative Negative [facility] Protein Auto test strip (U) [Mass/Vol]Ordered By: Sam Simons on 12-17-2021 Protein (U) [Mass/Vol] Negative Negative [facility] Specific gravity Auto test s trip (U) [Rel density]Ordered By: Sam Simons on 12-17-2021 Specific gravity (U) [Rel density] 1.016 1.001-1.030 [facility] Squamous epithelial cells de tection in urine sediment by light microscopyOrdered By: Sam Simons on 12-17-2021 Epithelial cells.squamous LM Ql (Urine sed) 0-1 [HPF] 0-2 [facility] Urine bacteria detection by automated methodOrdered By: Sam Simons on 12-17-2021 Bacteria Auto Ql (U) None seen None Seen [facility] Urine clarity by refractomet ry automatedOrdered By: Sam Simons on 12-17-2021 Clarity Refractometry automated (U) Clear Clear [facility] Urine glucose measurement by automated test strip (mass/volume)Ordered By: Sam Simons on 12-17-2021 Glucose Auto test strip (U) [Mass/Vol] Normal mg/dL Normal [facility] Urine hemoglobin detection b y automated test stripOrdered By: Sam Simnos on 12-17-2021 Hemoglobin Auto test strip Ql (U) Negative Negative [facility] Urine leukocyte esterase det ection by automated test stripOrdered By: Sam Simons on 12-17-2021 Leukocyte esterase Auto test strip Ql (U) 4+ Negative [facility] Urobilinogen Auto test strip (U) [Mass/Vol]Ordered By: Sam Simons on 12-17-2021 Urobilinogen (U) [Mass/Vol] Normal mg/dL Normal [facility] pH Auto test strip (U)Ordere d By: Sam Simons on 12-17-2021 pH (U) 6.0 [pH] 5.0-9.0 [facility] Urine culture routineOrdered By: Davis Cervantes on 12-13-2021 Bacteria identified Cx Nom (U) No Growth 2 Days [facility] Automated erythrocytes count in urine sediment (number/area)Ordered By: Davis Cervantes on 12-11-2021 RBC Auto (Urine sed) [#/Area] 20-49 [HPF] 0-4 [facility] Automated leukocytes count i n urine sediment (number/area)Ordered By: Davis Cervantes on 12-11-2021 WBC Auto (Urine sed) [#/Area] 10-19 [HPF] 0-4 [facility] Basophils Auto (Bld) [#/Vol] Ordered By: Davis Cervantes on 12-11-2021 Basophils (Bld) [#/Vol] 0.1 10*3/uL 0.0-0.2 [facility] Basophils/100 WBC Auto (Bld) Ordered By: Davis Cervantes on 12-11-2021 Basophils/100 WBC (Bld) 1.2 % . [facility] Bilirubin Test strip Ql (U)O rdered By: Davis Cervantes on 12-11-2021 Bilirubin Ql (U) Negative Negative [facility] Blood hemoglobin measurement (mass/volume)Ordered By: Davis Cervantes on 12-11-2021 Hemoglobin (Bld) [Mass/Vol] 13.3 g/dL 13.0-17.0 [facility] Blood leukocytes automated c ount (number/volume)Ordered By: Davis Cervantes on 12-11-2021 WBC (Bld) [#/Vol] 8.2 10*3/uL 4.5-11.0 [facility] Color Auto (U)Ordered By: Mary Cervantes on 12-11-2021 Color (U) Yellow Yellow [facility] Creatinine and Glomerular fi ltration rate.predicted panel (S/P/Bld)Ordered By: Davis Cervantes on 12-11-2021 Creatinine [Mass/Vol] 1.16 mg/dL 0.64-1.27 [facility] Eosinophils Auto (Bld) [#/Vo l]Ordered By: Davis Cervantes on 12-11-2021 Eosinophils (Bld) [#/Vol] 0.2 10*3/uL 0.0-0.45 [facility] Eosinophils/100 WBC Auto (Bl d)Ordered By: Davis Cervantes on 12-11-2021 Eosinophils/100 WBC (Bld) 2.9 % . [facility] Erythrocyte distribution wid th Auto (RBC) [Ratio]Ordered By: Davis Cervantes on 12-11-2021 Erythrocyte distribution width (RBC) [Ratio] 11.8 % 12.0-14.8 [facility] Estimated glomerular filtrat ion rate (GFR) non- AmericanOrdered By: Davis Cervantes on 12-11-2021 GFR/1.73 sq M.predicted among non-blacks MDRD (S/P/Bld) [Vol rate/Area] 60 mL/Min [facility] Hematocrit Auto (Bld) [Volum e fraction]Ordered By: Davis Cervantes on 12-11-2021 Hematocrit (Bld) [Volume fraction] 39.6 % 38.8-50.0 [facility] Ketones Auto test strip (U) [Mass/Vol]Ordered By: Daivs Cervantes on 12-11-2021 Ketones (U) [Mass/Vol] Negative Negative [facility]ematology and Cell countsOrdered By: Davis Cervantes on 12-11-2021 Nucleated RBC/100 WBC (Bld) [Ratio] 0.0 % 0-0.5 [facility] Laboratory - UrinalysisOrder ed By: Davis Cervantes on 12-11-2021 Hyaline casts LM Ql (Urine sed) 0-8 [LPF] 0-8 [facility] Lymphocytes Auto (Bld) [#/Vo l]Ordered By: Davis Cervantes on 12-11-2021 Lymphocytes (Bld) [#/Vol] 1.9 10*3/uL 1.00-4.8 [facility] Lymphocytes/100 WBC Auto (Bl d)Ordered By: Davis Cervantes on 12-11-2021 Lymphocytes/100 WBC (Bld) 23.3 % . [facility] MCH Auto (RBC) [Entitic mass ]Ordered By: Davis Cervantes on 12-11-2021 MCH (RBC) [Entitic mass] 32.0 pg 27.5-35.2 [facility] MCHC Auto (RBC) [Mass/Vol]Or dered By: Davis Cervantes on 12-11-2021 MCHC (RBC) [Mass/Vol] 33.6 g/dL 32.5-35.6 [facility] MCV Auto (RBC) [Entitic vol] Ordered By: Davis Cervantes on 12-11-2021 MCV (RBC) [Entitic vol] 95.1 fL 83.5-101 [facility] Monocytes Auto (Bld) [#/Vol] Ordered By: Davis Cervantes on 12-11-2021 Monocytes (Bld) [#/Vol] 1.1 10*3/uL 0.0-0.8 [facility] Monocytes/100 WBC Auto (Bld) Ordered By: Davis Cervantes on 12-11-2021 Monocytes/100 WBC (Bld) 13.6 % . [facility] Neutrophils Auto (Bld) [#/Vo l]Ordered By: Davis Cervantes on 12-11-2021 Neutrophils (Bld) [#/Vol] 4.8 10*3/uL 1.8-7.7 [facility] Neutrophils/100 WBC Auto (Bl d)Ordered By: Davis Cervantes on 12-11-2021 Neutrophils/100 WBC (Bld) 59.0 % . [facility] Nitrite Test strip Ql (U)Ord ered By: Davis Cervantes on 12-11-2021 Nitrite Ql (U) Negative Negative [facility] No Panel InformationOrdered By: Davis Cervantes on 12-11-2021 Estimated GFR () > 60 mL/Min [facility] Comment on above: GFR estimated refere nce range: According to KDOQI guidelines, <60 ml/min/1.73m2 is sufficient to diagnose a patient with chronic kidney disease. Pharmacy Creatinine Clearance (Chem 57.67 [facility] Platelet mean volume Auto (B ld) [Entitic vol]Ordered By: Davis Cervantes on 12-11-2021 Platelet mean volume (Bld) [Entitic vol] 7.0 fL 6.6-10.1 [facility] Platelets Auto (Bld) [#/Vol] Ordered By: Davis Cervantes on 12-11-2021 Platelets (Bld) [#/Vol] 266 10*3/uL 150-450 [facility] Protein Auto test strip (U) [Mass/Vol]Ordered By: Davis Cervantes on 12-11-2021 Protein (U) [Mass/Vol] Negative Negative Fi [facility] RBC Auto (Bld) [#/Vol]Ordere d By: Davis Cervantes on 12-11-2021 RBC (Bld) [#/Vol] 4.17 10*6/uL 3.90-5.60 [facility] Serum or plasma anion gap de terminationOrdered By: Davis Cervantes on 12-11-2021 Anion gap [Moles/Vol] 12.2 mmol/L 6.0-15.0 [facility] Serum or plasma calcium maggy urement (mass/volume)Ordered By: Davis Cervantes on 12-11-2021 Calcium [Mass/Vol] 9.0 mg/dL 8.2-10.2 [facility] Serum or plasma chloride duran surement (moles/volume)Ordered By: Davis Cervantes on 12-11-2021 Chloride [Moles/Vol] 96 mmol/L 95-114 [facility] Serum or plasma glucose maggy urement (mass/volume)Ordered By: Davis Cervantes on 12-11-2021 Glucose [Mass/Vol] 131 mg/dL 70-100 [facility] Comment on above: ADA recommended refe rence rangeRandom Glucose Reference Range is dependent on time and content of last meal. Glucose of more than 200 mg/dL in a nonstressed, ambulatory subject supports the diagnosis of Diabetes Mellitus. Serum or plasma potassium me asurement (moles/volume)Ordered By: Davis Cervantes on 12-11-2021 Potassium [Moles/Vol] 4.5 mmol/L 3.5-5.1 [facility] Serum or plasma sodium measu rement (moles/volume)Ordered By: Davis Cervantes on 12-11-2021 Sodium [Moles/Vol] 131 mmol/L 136-146 [facility] Serum or plasma total carbon dioxide measurement (moles/volume)Ordered By: Davis Cervantes on 12-11-2021 CO2 [Moles/Vol] 27.3 mmol/L 22.0-30.0 [facility] Serum or plasma urea nitroge n measurement (mass/volume)Ordered By: Davis Cervantes on 12-11-2021 Urea nitrogen [Mass/Vol] 20 mg/dL 9-23 [facility] Specific gravity Auto test s trip (U) [Rel density]Ordered By: Davis Cervantes on 12-11-2021 Specific gravity (U) [Rel density] 1.014 1.001-1.030 [facility] Squamous epithelial cells de tection in urine sediment by light microscopyOrdered By: Davis Cervantes on 12-11-2021 Epithelial cells.squamous LM Ql (Urine sed) 0-1 [HPF] 0-2 [facility] Urine bacteria detection by automated methodOrdered By: Davis Cervantes on 12-11-2021 Bacteria Auto Ql (U) None seen None Seen [facility] Urine clarity by refractomet ry automatedOrdered By: Davis Cervantes on 12-11-2021 Clarity Refractometry automated (U) Clear Clear [facility] Urine glucose measurement by automated test strip (mass/volume)Ordered By: Davis Cervantes on 12-11-2021 Glucose Auto test strip (U) [Mass/Vol] Normal mg/dL Normal [facility] Urine hemoglobin detection b y automated test stripOrdered By: Davis Cervantes on 12-11-2021 Hemoglobin Auto test strip Ql (U) 2+ Negative [facility] Urine leukocyte esterase det ection by automated test stripOrdered By: Davis Cervantes on 12-11-2021 Leukocyte esterase Auto test strip Ql (U) 2+ Negative [facility] Urobilinogen Auto test strip (U) [Mass/Vol]Ordered By: Davis Cervantes on 12-11-2021 Urobilinogen (U) [Mass/Vol] Normal mg/dL Normal [facility] pH Auto test strip (U)Ordere d By: Davis Cervantes on 12-11-2021 pH (U) 5.5 [pH] 5.0-9.0 [facility] ED NOTEon 11-27-2021 ED NOTE HNO ID: [id number] Author: Alyx Vergara RN Service: Nursing Author Type: Registered Nurse Type: ED Notes Filed: 11/26/2021 10:21 PM Note Text: Discharge instructions and follow up appointments reviewed. Pt verbalized understanding and states no concerns or questions at this time. VSS. Spoke with Asha about elevated BP. Stated that it's okay for pt to go and have him f/u with his PCP. Normal [facility] ED NOTE HNO ID: [id number] Author: Alyx Vergara RN Service: Nursing Author Type: Registered Nurse Type: ED Notes Filed: 11/26/2021 10:10 PM Note Text: Replaced hamilton bag with leg bag. Normal [facility] Bacteria Ur Culton 2 Bacteria identified Cx Nom (U) [id number] Abnormal [facility] Comment on above: Order Comment: Speci men Type: URINE SPECIMEN Ordering Facility: [facility] Address: [address] [place] [address] [place] [address] Result Comment: >=10 0,000 CFU/ml Klebsiella oxytoca Performed By: #### 6 30-4, 17109-2 #### [facility] CLIA [id number] [address] [place] [address] [place] Bacterial susceptibility maldonado el (Isol)on 11-26-2021 Ampicillin [Susc] Resistant [facility] Comment on above: Order Comment: Order ing Facility: [facility] Address: [address] [place] [address] Performed By: #### 6 30-4, 12992-5 #### [facility] CLIA [id number] [address] [place] [address] [place] Ampicillin+Sulbactam [Susc] 4 Susceptible Susceptible <=8 , Intermediate >8 , Resistant >16 [facility] Comment on above: Order Comment: Order ing Facility: [facility] Address: [address] [place] [address] Performed By: #### 6 30-4, 81282-5 #### [facility] CLIA [id number] [address] [place] [address] [place] ceFAZolin [Susc] <=4 Susceptible Susceptible 0-16 , Intermediate <0 or >16 , Resistant >16 [facility] Comment on above: Order Comment: Order ing Facility: [facility] Address: [address] [place] [address] Performed By: #### 6 30-4, 33440-1 #### [facility] CLIA [id number] [address] [place] [address] [place] Cefepime [Susc] <=1 Susceptible Susceptible <=2 , Intermediate >2 , Resistant >=16 [facility] Comment on above: Order Comment: Order ing Facility: [facility] Address: [address] [place] [address] Performed By: #### 6 30-4, 95365-4 #### [facility] CLIA [id number] [address] [place] [address] [place] cefTRIAXone [Susc] <=1 Susceptible Susceptib le <=1 , Intermediate >1 , Resistant >=4 [facility] Comment on above: Order Comment: Order ing Facility: [facility] Address: [address] [place], [place] [address] Performed By: #### 6 30-4, 75493-9 #### [facility] CLIA [id number] [address] [place] [address] [place] Ciprofloxacin [Susc] <=0.25 Susceptible Suscept ible <0.5 , Intermediate >=.5 , Resistant >=1 [facility] Comment on above: Order Comment: Order ing Facility: [facility] Address: [address] [place] [address] Performed By: #### 6 30-4, 29441-1 #### [facility] CLIA [id number] [address] [place] [address] [place] Ertapenem ROCIO [Susc] <=0.5 Susceptible Suscept ible <=0.5 , Intermediate >.5 , Resistant >1 [facility] Comment on above: Order Comment: Order ing Facility: [facility] Address: [address] [place], [place] [address] Performed By: #### 6 30-4, 70998-1 #### [facility] CLIA [id number] [address] [place] [address] [place] Gentamicin [Susc] <=1 Susceptible Susceptibl e <=4 , Intermediate >4 , Resistant >8 [facility] Comment on above: Order Comment: Order ing Facility: [facility] Address: [address] [place], [place] [address] Performed By: #### 6 30-4, 28568-2 #### [facility] CLIA [id number] [address] [place] [address] [place] Meropenem [Susc] <=0.25 Susceptible Susceptible <=1 , Intermediate >1 , Resistant >2 [facility] Comment on above: Order Comment: Order ing Facility: [facility] Address: [address] Performed By: #### 6 30-4, 19499-6 #### [facility] CLIA [id number] [address] [place] [address] Nitrofurantoin [Susc] 32 Susceptible Suscep tible <=32 , Intermediate >32 , Resistant >64 [facility] Comment on above: Order Comment: Order ing Facility: [facility] Address: [address] [place], [place] [address] Performed By: #### 6 30-4, 92800-4 #### [facility] CLIA [id number] [address] [place] [address] [place] Piperacillin+Sulbactam ROCIO [Susc] <=4 Susceptible Susceptible <=16 , Intermediate >16 , Resistant >64 [facility] Comment on above: Order Comment: Order ing Facility: [facility] Address: [address] [place] [address] Performed By: #### 6 30-4, 31854-1 #### [facility] CLIA [id number] [address] [place] [address] [place] Tobramycin [Susc] <=1 Susceptible Susceptibl e <=4 , Intermediate >4 , Resistant >8 [facility] Comment on above: Order Comment: Order ing Facility: [facility] Address: [address] [place], [place] [address] Performed By: #### 6 30-4, 02963-5 #### [facility] CLIA [id number] [address] [place] [address] [place] Trimethoprim+Sulfameth oxazole [Susc] <=20 Susceptible Susceptible <=40 , Resistant >40 [facility] Comment on above: Order Comment: Order ing Facility: [facility] Address: [address] [place], [place] [address] Performed By: #### 6 30-4, 31144-3 #### [facility] CLIA [id number] [address] [place] [address] ED NOTEon 11-26-2021 ED NOTE HNO ID: [id number] Author: Alyx Vergara RN Service: Nursing Author Type: Registered Nurse Type: ED Notes Filed: 11/26/2021 9:20 PM Note Text: Replaced hamilton per Asha DIXON. [facility] ED NOTE HNO ID: [id number] Author: Alyx Vergara RN Service: Nursing Author Type: Registered Nurse Type: ED Notes Filed: 11/26/2021 9:01 PM Note Text: Was instructed to bladder scan pt due to pt having no urine in replaced bag. Bladder scanned 261 mL's the first time. Then 214 mL's the second time. Made Asha ESQUIVEL) aware. [facility] ED NOTE HNO ID: [id number] Author: Alyx Vergara RN Service: Nursing Author Type: Registered Nurse Type: ED Notes Filed: 11/26/2021 9:49 PM Note Text: Flushed 20 mL Hamilton. No leaking noted around tube. [facility] ED PROV NOTEon 11-26-2021 ED PROV NOTE HNO ID: [id number] Author: Asha Clinton PA-C Service: ? 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 Previous and only urine culture in [facility] on 11/07 had no growth. Given dose of Keflex. Prescription for this E scripted to pharmacy. Patient discharged with Hamilton in place, leg bag instructions. Elevated blood pressure noted and improved during stay. No CP, sob, dizziness or any other complaints. Recommend f/u with pcp for recheck. All questions and concerns addre (more content not included)... Normal [facility] Urinalysis complete panel (U )on 11-26-2021 Bacteria LM.HPF (Urine sed) [#/Area] Many Abnormal None Seen [facility] Comment on above: Order Comment: Speci men Type: URINE SPECIMEN Ordering Facility: [facility] Address: [address] [place] [address] Performed By: #### 6 30-4, 39187-8 #### [facility] CLIA [id number] [address] [place] [address] [place] Bilirubin Ql (U) Negative Normal Negative [facility] Comment on above: Order Comment: Speci men Type: URINE SPECIMEN Ordering Facility: [facility] Address: [address] [place], [place] [address] Performed By: #### 6 30-4, 28826-2 #### [facility] CLIA [id number] [address] [place] [address] [place] Clarity (Unsp spec) Cloudy Abnormal Clear [facility] Comment on above: Order Comment: Speci men Type: URINE SPECIMEN Ordering Facility: [facility] Address: [address] [place] [address] Performed By: #### 6 30-4, 91743-1 #### [facility] CLIA [id number] [address] [place] [address] [place] Color (U) Yellow Normal Yellow [facility] Comment on above: Order Comment: Speci men Type: URINE SPECIMEN Ordering Facility: [facility] Address: [address] [place], [place] [address] Performed By: #### 6 30-4, 14419-2 #### [facility] CLIA [id number] [address] [place] [address] [place] Epithelial cells LM.HPF (Urine sed) [#/Area] Few Normal [facility] Comment on above: Order Comment: Speci men Type: URINE SPECIMEN Ordering Facility: [facility] Address: [address] [place], [place] [address] Performed By: #### 6 30-4, 63891-9 #### [facility] CLIA [id number] [address] [place] [address] [place] Glucose Test strip (U) [Mass/Vol] Negative Normal Negative [facility] Comment on above: Order Comment: Speci men Type: URINE SPECIMEN Ordering Facility: [facility] Address: [address] [place], [place] [address] Performed By: #### 6 30-4, 47576-4 #### [facility] CLIA [id number] [address] [place] [address] [place] Hemoglobin Ql (U) 2+ Abnormal Negative [facility] Comment on above: Order Comment: Speci men Type: URINE SPECIMEN Ordering Facility: [facility] Address: [address] [place] [address] Performed By: #### 6 30-4, 92269-4 #### [facility] CLIA [id number] [address] [place] [address] [place] Ketones Ql (U) Negative Normal Negative [facility] Comment on above: Order Comment: Speci men Type: URINE SPECIMEN Ordering Facility: [facility] Address: [address] [place] [address] Performed By: #### 6 30-4, 17829-5 #### [facility] CLIA [id number] [address] [place] [address] [place] Leukocyte esterase Test strip Ql (U) 3+ Abnormal Negative [facility] Comment on above: Order Comment: Speci men Type: URINE SPECIMEN Ordering Facility: [facility] Address: [address] [place] [address] Performed By: #### 6 30-4, 09691-5 #### [facility] CLIA [id number] [address] [place] [address] [place] Nitrite Ql (U) Positive Abnormal Negative [facility] Comment on above: Order Comment: Speci men Type: URINE SPECIMEN Ordering Facility: [facility] Address: [address] [place], [place] [address] Performed By: #### 6 30-4, 52452-4 #### [facility] CLIA [id number] [address] [place] [address] [place] pH (U) 5.5 [pH] Normal 5.0-8.0 [facility] Comment on above: Order Comment: Speci men Type: URINE SPECIMEN Ordering Facility: [facility] Address: [address] [place] [address] Performed By: #### 6 30-4, 30047-8 #### [facility] CLIA [id number] [address] [place] [address] [place] Protein (U) [Mass/Vol] Normal [facility] Comment on above: Order Comment: Speci men Type: URINE SPECIMEN Ordering Facility: [facility] Address: [address] [place] [address] Result Comment: Visi ble blood causes falsely elevated results for analyte Protein. Due to this limitation, Protein will not be reported for patients whose urine contains visible blood. Performed By: #### 6 30-4, 28660-3 #### [facility] CLIA [id number] [address] [place] [address] [place] RBC LM.HPF (Urine sed) [#/Area] 6-10 /HPF Abnormal 0-3 /HPF [facility] Comment on above: Order Comment: Speci men Type: URINE SPECIMEN Ordering Facility: [facility] Address: [address] [place] [address] Performed By: #### 6 30-4, 15012-3 #### [facility] CLIA [id number] [address] [place] [address] [place] Specific gravity (U) [Rel density] 1.009 Normal 1.005-1.030 [facility] Comment on above: Order Comment: Speci men Type: URINE SPECIMEN Ordering Facility: [facility] Address: [address] [place], [place] [address] Performed By: #### 6 30-4, 96975-1 #### [facility] CLIA [id number] [address] [place] [address] [place] Urobilinogen Ql (U) 0.2 EU/dL Normal 0.2-1.0 EU/dL [facility] Comment on above: Order Comment: Speci men Type: URINE SPECIMEN Ordering Facility: [facility] Address: [address] [place] [address] Performed By: #### 6 30-4, 18257-8 #### [facility] CLIA [id number] [address] [place] [address] [place] WBC LM.HPF (Urine sed) [#/Area] 11-25 /HPF Abnormal 0-5 /HPF [facility] Comment on above: Order Comment: Speci men Type: URINE SPECIMEN Ordering Facility: [facility] Address: [address] [place] [address] Performed By: #### 6 30-4, 85369-3 #### [facility] CLIA [id number] [address] [place] [address] [place] Covid-19 PCR (CVDTB)on SARS-CoV-2 (COVID-19) RNA LUANNE+probe Ql (Unsp spec) Not detected Normal NOT DETECTED [facility] Comment on above: Result Comment: This test is not yet approved or cleared by the [place] FDA. When there are no FDA-approved or cleared tests available, and other criteria are met, FDA can make tests available under an emergency access mechanism called an Emergency Use Authorization (EUA). The EUA for this test is supported by the Rn Liaison of Health and Human Service's (HHS's) declaration [...] consistent with SARS-CoV-2. Performed By: #### C VDTBH #### [facility] [address] [place] [address] Dr. Juan Pablo Kaminski Bacteria Ur Culton 2 Bacteria identified Cx Nom (U) No growth (<1,000 CFU/ml) Normal [facility] Comment on above: Order Comment: Speci men Type: URINE SPECIMEN Ordering Facility: [facility] Address: [address] [place], [place] [address] Performed By: #### 6 30-4 #### [facility] CLIA [id number] [address] [place] [address] [place] Basic metabolic 2000 panelon 11-07-2021 Anion gap [Moles/Vol] 10 mmol/L Normal 9-18 [facility] Comment on above: Order Comment: Speci men Type: URINE SPECIMEN Ordering Facility: [facility] Address: [address] [place] [address] Performed By: #### 6 30-4, 69292-0 #### [facility] CLIA [id number] [address] [place] [address] [place] Calcium [Mass/Vol] 9.1 mg/dL Normal 8.5-10.2 [facility] Comment on above: Order Comment: Speci men Type: URINE SPECIMEN Ordering Facility: [facility] Address: [address] [place], [place] [address] Performed By: #### 6 30-4, 10331-6 #### [facility] CLIA [id number] [address] [place] [address] [place] Chloride [Moles/Vol] 95 mmol/L Low 97-105 [facility] Comment on above: Order Comment: Speci men Type: URINE SPECIMEN Ordering Facility: [facility] Address: [address] [place], [place] [address] Performed By: #### 6 30-4, 64121-7 #### [facility] CLIA [id number] [address] [place] [address] [place] CO2 [Moles/Vol] 25 mmol/L Normal 22-30 [facility] Comment on above: Order Comment: Speci men Type: URINE SPECIMEN Ordering Facility: [facility] Address: [address] [place] [address] Performed By: #### 6 30-4, 25714-0 #### [facility] CLIA [id number] [address] [place] [address] [place] Creatinine [Mass/Vol] 1.25 mg/dL High 0.73-1.22 [facility] Comment on above: Order Comment: Speci men Type: URINE SPECIMEN Ordering Facility: [facility] Address: [address] [place] [address] Performed By: #### 6 30-4, 09717-1 #### [facility] CLIA [id number] [address] [place] [address] [place] ESTIMATED GLOMERULAR FILTRATION RATE 57 mL/min/1.73m??? Low >=60 [facility] Comment on above: Order Comment: Speci men Type: URINE SPECIMEN Ordering Facility: [facility] Address: [address] [place] [address] Result Comment: Annalise mated Glomerular Filtration Rate [...] actual GFR. Performed By: #### 6 30-4, 66351-7 #### [facility] CLIA [id number] [address] [place] [address] [place] Glucose [Mass/Vol] 129 mg/dL High 74-99 [facility] Comment on above: Order Comment: Speci men Type: URINE SPECIMEN Ordering Facility: [facility] Address: [address] [place] [address] Result Comment: The [place] [employer] (ADA) provides guidance for cutoff [...] Standards of Medical Care in Diabetes 2016, [place] [employer]. Diabetes Care. 2016.39(Suppl 1). Performed By: #### 6 30-4, 35802-0 #### [facility] CLIA [id number] [address] [place] [address] [place] Potassium [Moles/Vol] 4.6 mmol/L Normal 3.7-5.1 [facility] Comment on above: Order Comment: Speci men Type: URINE SPECIMEN Ordering Facility: [facility] Address: [address] [place] [address] Performed By: #### 6 30-4, 64683-9 #### [facility] CLIA [id number] [address] [place] [address] [place] Sodium [Moles/Vol] 130 mmol/L Low 136-144 [facility] Comment on above: Order Comment: Speci men Type: URINE SPECIMEN Ordering Facility: [facility] Address: [address] [place] [address] Performed By: #### 6 30-4, 05193-5 #### [facility] CLIA [id number] [address] [place] [address] [place] Urea nitrogen [Mass/Vol] 23 mg/dL Normal 9-24 [facility] Comment on above: Order Comment: Speci men Type: URINE SPECIMEN Ordering Facility: [facility] Address: [address] [place] [address] Performed By: #### 6 30-4, 12089-2 #### [facility] CLIA [id number] [address] [place] [address] [place] CBC W Auto Differential pane l (Bld)on 11-07-2021 Basophils/100 WBC (Bld) 0.0 % Normal [facility] Comment on above: Order Comment: Speci men Type: URINE SPECIMEN Ordering Facility: [facility] Address: [address] [place] [address] Performed By: #### 6 30-4, 25334-3 #### [facility] CLIA [id number] [address] [place] [address] [place] Differential cell count method Nom (Bld) Manual Normal [facility] Comment on above: Order Comment: Speci men Type: URINE SPECIMEN Ordering Facility: [facility] Address: [address] [place] [address] Performed By: #### 6 30-4, 30852-1 #### [facility] CLIA [id number] [address] [place] [address] [place] Eosinophils (Bld) [#/Vol] 0.10 10*3/uL Normal <0.46 [facility] Comment on above: Order Comment: Speci men Type: URINE SPECIMEN Ordering Facility: [facility] Address: [address] [place] [address] Performed By: #### 6 30-4, 09937-1 #### [facility] CLIA [id number] [address] [place] [address] [place] Eosinophils/100 WBC (Bld) 1.0 % Normal [facility] Comment on above: Order Comment: Speci men Type: URINE SPECIMEN Ordering Facility: [facility] Address: [address] [place], [place] [address] Performed By: #### 6 30-4, 95696-3 #### [facility] CLIA [id number] [address] [place] [address] [place] Erythrocyte distribution width (RBC) [Ratio] 11.5 % Normal 11.5-15.0 [facility] Comment on above: Order Comment: Speci men Type: URINE SPECIMEN Ordering Facility: [facility] Address: [address] [place] [address] Performed By: #### 6 30-4, 71599-4 #### [facility] CLIA [id number] [address] [place] [address] [place] Hematocrit (Bld) [Volume fraction] 39.8 % Normal 39.0-51.0 [facility] Comment on above: Order Comment: Speci men Type: URINE SPECIMEN Ordering Facility: [facility] Address: [address] [place] [address] Performed By: #### 6 30-4, 52171-9 #### [facility] CLIA [id number] [address] [place] [address] [place] Hemoglobin (Bld) [Mass/Vol] 13.4 g/dL Normal 13.0-17.0 [facility] Comment on above: Order Comment: Speci men Type: URINE SPECIMEN Ordering Facility: [facility] Address: [address] [place] [address] Performed By: #### 6 30-4, 23843-0 #### [facility] CLIA [id number] [address] [place] [address] [place] Lymphocytes (Bld) [#/Vol] 1.67 10*3/uL Normal 1.00-4.00 [facility] Comment on above: Order Comment: Speci men Type: URINE SPECIMEN Ordering Facility: [facility] Address: [address] [place] [address] Performed By: #### 6 30-4, 55414-7 #### [facility] CLIA [id number] [address] [place] [address] [place] Lymphocytes/100 WBC (Bld) 17.0 % Normal [facility] Comment on above: Order Comment: Speci men Type: URINE SPECIMEN Ordering Facility: [facility] Address: [address] Performed By: #### 6 30-4, 66117-3 #### [facility] CLIA [id number] [address] [place] [address] STATES [facility] MCH (RBC) [Entitic mass] 31.5 pg Normal 26.0-34.0 [facility] Comment on above: Order Comment: Speci men Type: URINE SPECIMEN Ordering Facility: [facility] Address: [address] [place], [place] [address] Performed By: #### 6 30-4, 87941-9 #### [facility] CLIA [id number] [address] [place] [address] [place] MCHC (RBC) [Mass/Vol] 33.7 g/dL Normal 30.5-36.0 [facility] Comment on above: Order Comment: Speci men Type: URINE SPECIMEN Ordering Facility: [facility] Address: [address] [place] [address] Performed By: #### 6 30-4, 68206-9 #### [facility] CLIA [id number] [address] [place] [address] [place] MCV (RBC) [Entitic vol] 93.4 fL Normal 80.0-100.0 [facility] Comment on above: Order Comment: Speci men Type: URINE SPECIMEN Ordering Facility: [facility] Address: [address] [place], [place] [address] Performed By: #### 6 30-4, 69899-7 #### [facility] CLIA [id number] [address] [place] [address] [place] Neutrophils (Bld) [#/Vol] 6.29 10*3/uL Normal 1.45-7.50 [facility] Comment on above: Order Comment: Speci men Type: URINE SPECIMEN Ordering Facility: [facility] Address: [address] [place], [place] [address] Performed By: #### 6 30-4, 31701-9 #### [facility] CLIA [id number] [address] [place] [address] [place] Neutrophils/100 WBC (Bld) 64.0 % Normal [facility] Comment on above: Order Comment: Speci men Type: URINE SPECIMEN Ordering Facility: [facility] Address: [address] [place] [address] Performed By: #### 6 30-4, 81835-2 #### [facility] CLIA [id number] [address] [place] [address] [place] Nucleated RBC/100 WBC (Bld) [Ratio] 0.0 /100 WBC Normal [facility] Comment on above: Order Comment: Speci men Type: URINE SPECIMEN Ordering Facility: [facility] Address: [address] [place] [address] Performed By: #### 6 30-4, 99075-8 #### [facility] CLIA [id number] [address] [place] [address] [place] PLATELET ESTIMATE Adequate Normal [facility] Comment on above: Order Comment: Speci men Type: URINE SPECIMEN Ordering Facility: [facility] Address: [address] [place], [place] [address] Performed By: #### 6 30-4, 04220-5 #### [facility] CLIA [id number] [address] [place] [address] [place] Platelet mean volume (Bld) [Entitic vol] 10.2 fL Normal 9.0-12.7 [facility] Comment on above: Order Comment: Speci men Type: URINE SPECIMEN Ordering Facility: [facility] Address: [address] [place], [place] [address] Performed By: #### 6 30-4, 35261-1 #### [facility] CLIA [id number] [address] [place] [address] [place] Platelets (Bld) [#/Vol] 258 10*3/uL Normal 150-400 [facility] Comment on above: Order Comment: Speci men Type: URINE SPECIMEN Ordering Facility: [facility] Address: [address] [place], [place] [address] Performed By: #### 6 30-4, 77181-7 #### [facility] CLIA [id number] [address] [place] [address] [place] RBC (Bld) [#/Vol] 4.26 10*6/uL Normal 4.20-6.00 [facility] Comment on above: Order Comment: Speci men Type: URINE SPECIMEN Ordering Facility: [facility] Address: [address] [place], [place] [address] Performed By: #### 6 30-4, 26919-5 #### [facility] CLIA [id number] [address] [place] [address] [place] RED CELL MORPH Reviewed: unremarkable Normal [facility] Comment on above: Order Comment: Speci men Type: URINE SPECIMEN Ordering Facility: [facility] Address: [address] [place], [place] [address] Performed By: #### 6 30-4, 65582-8 #### [facility] CLIA [id number] [address] [place] [address] [place] WAM - ABS BASO 0.00 k/uL Normal <0.11 [facility] Comment on above: Order Comment: Speci men Type: URINE SPECIMEN Ordering Facility: [facility] Address: [address] [place], [place] [address] Performed By: #### 6 30-4, 98419-2 #### [facility] CLIA [id number] [address] [place] [address] [place] WAM - ABS MONO 1.77 k/uL High <0.87 [facility] Comment on above: Order Comment: Speci men Type: URINE SPECIMEN Ordering Facility: [facility] Address: [address] [place], [place] [address] Performed By: #### 6 30-4, 73111-9 #### [facility] CLIA [id number] [address] [place] [address] [place] WAM - MONO% 18.0 % Normal [facility] Comment on above: Order Comment: Speci men Type: URINE SPECIMEN Ordering Facility: [facility] Address: [address] [place] [address] Performed By: #### 6 30-4, 12293-0 #### [facility] CLIA [id number] [address] [place] [address] [place] WAM ABSOLUTE NRBC <0.01 Normal <0.01 [facility] Comment on above: Order Comment: Speci men Type: URINE SPECIMEN Ordering Facility: [facility] Address: [address] [place] [address] Performed By: #### 6 30-4, 98770-3 #### [facility] CLIA [id number] [address] [place] [address] [place] WBC (Bld) [#/Vol] 9.83 10*3/uL Normal 3.70-11.00 [facility] Comment on above: Order Comment: Speci men Type: URINE SPECIMEN Ordering Facility: [facility] Address: [address] [place] [address] Performed By: #### 6 30-4, 69179-5 #### [facility] CLIA [id number] [address] [place] [address] [place] ED NOTEon 11-07-2021 ED NOTE HNO ID: [id number] Author: Yoshi Schumacher RN Service: ? Author Type: Registered Nurse Type: ED Notes Filed: 11/07/2021 5:14 PM Note Text: Pt provided with discharged instructions. Medications gone over and all questions answered. Pt. Left with steady gait with friend for a ride. Normal [facility] ED NOTE HNO ID: [id number] Author: Flaquita Donnelly RN Service: ? Author Type: Registered Nurse Type: ED Notes Filed: 11/07/2021 1:24 PM Note Text: Pt to ED for urinary retention. Pt had appointment with Urology on Wednesday, but was not able to be seen. Pt denies pain, but reports pressure in the bladder. Pt states he is not able to urinate completely and reports dribbling. [facility] ED PROV NOTEon 11-07-2021 ED PROV NOTE HNO ID: [id number] Author: Keely Gutierrez DO Service: Emergency Medicine [...] this Wednesday with his urologist out of [place] but was notified that his urologist had [...] Abnormal; Notable for the following components: Abs [place] 1.77 (*) <0.87 k/uL All other components [...] cysts one of which is mildly complex. [place] Operator: LIANA Transcribe Date/Time: Nov 07 2021 2:57P Dictated by : NEHEMIAS COLBERT MD This examination was interpreted and the report reviewed and electronically signed by: NEHEMIAS COLBERT MD on Aug 26 2022 3:09PM EST Procedures ED Course / Clinical [...] at th (more content not included)... Normal [facility] US KIDNEY/BLADDERon 11-08-19 US KIDNEY/BLADDER * * [...] cysts one of which is mildly complex. [place] Operator: LIANA Transcribe Date/Time: Nov 07 2021 2:57P Dictated by : NEHEMIAS COLBERT MD This examination was interpreted and the report reviewed and electronically signed by: NEHEMIAS COLBERT MD on Nov 07 2021 3:09PM EST [id number] Normal [facility] Urinalysis complete panel (U )on 11-07-2021 Bilirubin Ql (U) Negative Normal Negative [facility] Comment on above: Order Comment: Speci men Type: URINE SPECIMEN Ordering Facility: [facility] Address: [address] [place] [address] Performed By: #### 6 30-4, 12438-6 #### [facility] CLIA [id number] [address] [place] [address] [place] Clarity (Unsp spec) Clear Normal Clear [facility] Comment on above: Order Comment: Speci men Type: URINE SPECIMEN Ordering Facility: [facility] Address: [address] [place] [address] Performed By: #### 6 30-4, 26158-1 #### [facility] CLIA [id number] [address] [place] [address] [place] Color (U) Yellow Normal Yellow [facility] Comment on above: Order Comment: Speci men Type: URINE SPECIMEN Ordering Facility: [facility] Address: [address] [place] [address] Performed By: #### 6 30-4, 48265-5 #### [facility] CLIA [id number] [address] [place] [address] [place] Epithelial cells LM.HPF (Urine sed) [#/Area] Few Normal [facility] Comment on above: Order Comment: Speci men Type: URINE SPECIMEN Ordering Facility: [facility] Address: [address] [place] [address] Performed By: #### 6 30-4, 93315-2 #### [facility] CLIA [id number] [address] [place] [address] [place] Glucose Test strip (U) [Mass/Vol] Negative Normal Negative [facility] Comment on above: Order Comment: Speci men Type: URINE SPECIMEN Ordering Facility: [facility] Address: [address] [place] [address] Performed By: #### 6 30-4, 43591-2 #### [facility] CLIA [id number] [address] [place] [address] [place] Hemoglobin Ql (U) Negative Normal [facility] Comment on above: Order Comment: Speci men Type: URINE SPECIMEN Ordering Facility: [facility] Address: [address] [place] [address] Performed By: #### 6 30-4, 94916-7 #### [facility] CLIA [id number] [address] [place] [address] [place] Hyaline casts (Urine sed) [#/Area] 1-3 /LPF Abnormal 0 /LPF [facility] Comment on above: Order Comment: Speci men Type: URINE SPECIMEN Ordering Facility: [facility] Address: [address] [place] [address] Performed By: #### 6 30-4, 63354-7 #### [facility] CLIA [id number] [address] [place] [address] [place] Ketones Ql (U) Trace Abnormal Negative [facility] Comment on above: Order Comment: Speci men Type: URINE SPECIMEN Ordering Facility: [facility] Address: [address] [place], [place] [address] Performed By: #### 6 30-4, 38376-3 #### [facility] CLIA [id number] [address] [place] [address] [place] Leukocyte esterase Test strip Ql (U) Negative Normal Negative [facility] Comment on above: Order Comment: Speci men Type: URINE SPECIMEN Ordering Facility: [facility] Address: [address] [place], [place] [address] Performed By: #### 6 30-4, 87514-6 #### [facility] CLIA [id number] [address] [place] [address] [place] Nitrite Ql (U) Negative Normal Negative [facility] Comment on above: Order Comment: Speci men Type: URINE SPECIMEN Ordering Facility: [facility] Address: [address] [place], [place] [address] Performed By: #### 6 30-4, 97739-9 #### [facility] CLIA [id number] [address] [place] [address] [place] pH (U) 5.5 [pH] Normal 5.0-8.0 [facility] Comment on above: Order Comment: Speci men Type: URINE SPECIMEN Ordering Facility: [facility] Address: [address] [place] [address] Performed By: #### 6 30-4, 38686-7 #### [facility] CLIA [id number] [address] [place] [address] [place] Protein (U) [Mass/Vol] Negative Normal Negative [facility] Comment on above: Order Comment: Speci men Type: URINE SPECIMEN Ordering Facility: [facility] Address: [address] [place] [address] Performed By: #### 6 30-4, 29036-2 #### [facility] CLIA [id number] [address] [place] [address] [place] RBC LM.HPF (Urine sed) [#/Area] 0-3 /HPF Normal 0-3 /HPF [facility] Comment on above: Order Comment: Speci men Type: URINE SPECIMEN Ordering Facility: [facility] Address: [address] [place] [address] Performed By: #### 6 30-4, 81301-7 #### [facility] CLIA [id number] [address] [place] [address] [place] Specific gravity (U) [Rel density] 1.024 Normal 1.005-1.030 [facility] Comment on above: Order Comment: Speci men Type: URINE SPECIMEN Ordering Facility: [facility] Address: [address] [place] [address] Performed By: #### 6 30-4, 00114-8 #### [facility] CLIA [id number] [address] [place] [address] Urobilinogen Ql (U) 0.2 EU/dL Normal 0.2-1.0 EU/dL [facility] Comment on above: Order Comment: Speci men Type: URINE SPECIMEN Ordering Facility: [facility] Address: [address] [place] [address] Performed By: #### 6 30-4, 98408-4 #### [facility] CLIA [id number] [address] [place] [address] WBC LM.HPF (Urine sed) [#/Area] 0-5 /HPF Normal 0-5 /HPF [facility] Comment on above: Order Comment: Speci men Type: URINE SPECIMEN Ordering Facility: [facility] Address: [address] [place] [address] Performed By: #### 6 30-4, 52976-7 #### [facility] CLIA [id number] [address] [place] [address] [place] Ambulatory Visit Summaryon 0 10-28-2021 Ambulatory Visit Summary NORBERTO WASHINGTON :1940 Visit Date:10/28/2021 Ambulatory Visit Instructions Your Diagnosis BPH with urinary obstruction Nocturia Post-void dribbling Incomplete emptying of bladder Urinary incontinence Tests Performed Urnls Dip Stick Auto w/o Microscopy POC 39752 Your Care Team Attending Physician - Billy [...] Appointments Follow Up with Billy Connolly MD, DEVORAH Lopez When: Comments: Will schedule Cysto Where: [facility] [address], [place] [address]- Medications What How Much When Instructions Unchanged [...] Urnls Dip Stick Auto w/o Microscopy POC 46272 (10/28/2021) Bilirubin Urine Dipstick - Negative Blood Urine Dipstick - Negative Glucose Urine Dipstick - Negative Ketones Urine Dipstick - Negative Leukocytes Urine Dipstick - Negative Nitrite Urine Dipstick - Negative Protein Urine Dipstick - Negative Specific [place] Urine Dipstick - 1.015 Urine Appearance Urine [...] ? Urina (more content not included)... Normal [facility] Patient Educationon 10-29-19 Patient Education Urology [...] Follow these instructions at home: ? Take xssz-abs-kryltsd and prescription medicines only as told by [...] d (more content not included)... Normal [facility] Urology Office/Clinic Noteon 10-28-2021 Urology Office/Clinic Note Chief Complaint 20 month follow up with P[facility] This 81-year-old male has a history of prostatic hyperplasia. Status post x2. This was in 2020. Recently has been complaining of urinary frequency, [...] urine and/or bladder capacity by US- non-imaging 27484 PSA Total Urnls Dip Stick Auto w/o Microscopy POC 74868 Urology Procedure Order 2. Nocturia (R35.1: Nocturia) moderate, Variable 2-5 times per night Ordered: Measure Post Void residual urine and/or bladder capacity by US- non-imaging 60296 PSA Total Urology Procedure Order 3. Post-void dribbling (N39.43: Post-v (more content not included)... Normal [facility] Comment on above: Result Comment: Elec tronically Signed By: Billy Connolly MD, Paul Valdes\.br\Date and Time Signed: 10/28/21 08:47 EDT\.br\Electronically Co-Signed By: Jessie Rivera\.br\Date and Time Co-Signed: 10/28/21 08:39 EDT MICROALBUMIN URINEon Albumin, Urine 5.6 ug/mL Normal Not Estab. [facility] Comment on above: Performed By: #### M ALBLC #### [facility] [address] [place] [address] Dr. Juan Pablo Kaminski [place] CAROT[employer] ART [...] SAMY TORRES Date: 2021-10-23 17:19 Normal [facility] CBC AUTO DIFFon 10-21-2021 BASO # 0.0 103/ul Normal 0.0-0.1 [facility] Comment on above: Performed By: #### A 1C #### [facility] [address] [place] [address] Dr. Juan Pablo Kaminski Basophils/100 WBC (Bld) 0.5 % Normal 0.2-2.0 [facility] Comment on above: Performed By: #### A 1C #### [facility] [address] [place] [address] Dr. Juan Pablo Kaminski EO # 0.3 103/ul Normal 0.0-0.7 [facility] Comment on above: Performed By: #### A 1C #### [facility] [address] [place] [address] Dr. Juan Pablo Kaminski Eosinophils/100 WBC (Bld) 3.6 % Normal 0.9-7.0 [facility] Comment on above: Performed By: #### A 1C #### [facility] [address] [place] [address] Dr. Juan Pablo Kaminski Erythrocyte distribution width (RBC) [Ratio] 11.1 % Normal 11.0-15.0 [facility] Comment on above: Performed By: #### A 1C #### [facility] [address] [place] [address] Dr. Juan Pablo Kaminksi Hematocrit (Bld) [Volume fraction] 41.8 % Critically low 42.0-54.0 [facility] Comment on above: Performed By: #### A 1C #### [facility] [address] [place] [address] Dr. Juan Pablo Kaminski Hemoglobin (Bld) [Mass/Vol] 14.1 g/dL Normal 14.0-18.0 [facility] Comment on above: Performed By: #### A 1C #### [facility] [address] [place] [address] Dr. Juan Pablo Kaminski IG # 0.03 10e3/ul Normal 0.00-0.03 [facility] Comment on above: Performed By: #### A 1C #### [facility] [address] [place] [address] Dr. Juan Pablo Kaminski IG % 0.4 % Normal 0.0-0.5 [facility] Comment on above: Performed By: #### A 1C #### [facility] [address] [address] [address] Juan Pablo Kaminski LYMPH # 2.2 103/ul Normal 1.2-3.8 [facility] Comment on above: Performed By: #### A 1C #### [facility] [address] [address] [address] Juan Pablo Kaminski Lymphocytes/100 WBC (Bld) 29.4 % Normal 20.5-60.0 [facility] Comment on above: Performed By: #### A 1C #### [facility] [address] [place] [address] Dr. Juan Pablo Kaminski MANUAL DIFF REQ NO Normal [facility] Comment on above: Performed By: #### A 1C #### [facility] [address] [place] [address] Dr. Juan Pablo Kaminski MCH (RBC) [Entitic mass] 31.8 pg Normal 25.9-34.0 [facility] Comment on above: Performed By: #### A 1C #### [facility] [address] [place] [address] Dr. Juan Pablo Kaminski MCHC (RBC) [Mass/Vol] 33.7 g/dL Normal 29.9-35.2 [facility] Comment on above: Performed By: #### A 1C #### [facility] [address] [place] [address] Dr. Juan Pablo Kaminski MCV (RBC) [Entitic vol] 94.1 fL Critically high 80.0-94.0 [facility] Comment on above: Performed By: #### A 1C #### [facility] [address] [place] [address] Dr. Juan Pablo Kaminski MONO # 0.9 103/ul Critically high 0.3-0.8 [facility] Comment on above: Performed By: #### A 1C #### [facility] [address] [place] [address] Dr. Juan Pablo Kaminski Monocytes/100 WBC (Bld) 11.7 % Normal 1.7-12.0 [facility] Comment on above: Performed By: #### A 1C #### [facility] [address] [address] [address] Juan Pablo Kaminski NEUT # 4.0 103/ul Normal 1.4-6.5 [facility] Comment on above: Performed By: #### A 1C #### [facility] [address] [address] [address] Juan Pablo Kaminski Neutrophils/100 WBC (Bld) 54.4 % Normal 43.0-75.0 [facility] Comment on above: Performed By: #### A 1C #### [facility] [address] [address] [address] Juan Pablo Kaminski Platelet mean volume (Bld) [Entitic vol] 8.6 fL Critically low 9.5-13.5 [facility] Comment on above: Performed By: #### A 1C #### [facility] [address] [address] [address] Juan Pablo Kaminski PLT 231 103/ul Normal 150-450 [facility] Comment on above: Performed By: #### A 1C #### [facility] [address] [address] [address] Juan Pablo Kaminski RBC 4.44 106/ul Critically low 4.70-6.10 [facility] Comment on above: Performed By: #### A 1C #### [facility] [address] [address] [address] Juan Pablo Kaminski WBC 7.3 103/ul Normal 4.0-11.0 [facility] Comment on above: Performed By: #### A 1C #### [facility] [address] [address] [address] Juan Pablo Kaminski DIRECT LDLon 10-21-2021 Cholesterol in LDL [Mass/Vol] 106 mg/dL Normal [facility] Comment on above: Performed By: #### A LT, BMP, DLDL #### [facility] [address] [address] [address] Juan Pablo Kaminski DLDL NORMAL SEE BELOW Normal [facility] Comment on above: Result Comment: <100 mg/dl OPTIMAL 100 - 129 mg/dl NEAR OR ABOVE OPTIMAL 130 - 159 mg/dl BORDERLINE HIGH 160 - 189 mg/dl HIGH >190 mg/dl VERY HIGH Performed By: #### A LT, BMP, DLDL #### [facility] [address] [address] [address] Juan Pablo Kaminski GLYCOHEMOGLOBIN A1Con 2021 ADA RECOMMENDATION SEE BELOW Normal [facility] Comment on above: Result Comment: ADA RECOMMENDED LIMIT 4.0 - 6.0 ADA THERAPEUTIC TARGET < 7.0 ACTION SUGGESTED > 7.0 Performed By: #### A 1C #### [facility] [address] [address] [address] Juan Pablo Kaminski Glucose [Mass/Vol] 120 mg/dL Normal [facility] Comment on above: Performed By: #### A 1C #### [facility] [address] [place] [address] Dr. Juan Pablo Kaminski HbA1c (Bld) [Mass fraction] 5.8 % Normal 4.5-6.2 [facility] Comment on above: Performed By: #### A 1C #### [facility] [address] [address] [address] Juan Pablo Kaminski PROF CHEM 8 (BAS METB)on Anion gap [Moles/Vol] 12.7 mmol/L Normal [facility] Comment on above: Performed By: #### A 1C #### [facility] [address] [place] [address] Dr. Juan Pablo Kaminski Calcium [Mass/Vol] 8.7 mg/dL Normal 8.5-10.1 [facility] Comment on above: Performed By: #### A 1C #### [facility] [address] [place] [address] Dr. Juan Pablo Kaminski Chloride [Moles/Vol] 98 mmol/L Normal 98-107 [facility] Comment on above: Performed By: #### A 1C #### [facility] [address] [place] [address] Dr. Juan Pablo Kaminski CO2 [Moles/Vol] 28.0 mmol/L Normal 21.0-32.0 [facility] Comment on above: Performed By: #### A 1C #### [facility] [address] [address] [address] Juan Pablo Kaminski Creatinine [Mass/Vol] 1.07 mg/dL Normal 0.70-1.30 [facility] Comment on above: Performed By: #### A 1C #### [facility] [address] [address] [address] Juan Pablo Kaminski EGFR-AF MALTESE >60 Normal >=60 [facility] Comment on above: Performed By: #### A 1C #### [facility] [address] [address] [address] Juan Pablo Kaminski EGFR-NON AF MALTESE >60 Normal >=60 [facility] Comment on above: Performed By: #### A 1C #### [facility] [address] [place] [address] Dr. Juan Pablo Kaminski Glucose [Mass/Vol] 133 mg/dL Critically high 74-106 [facility] Comment on above: Performed By: #### A 1C #### [facility] [address] [place] [address] Dr. Juan Pablo Kaminski Potassium [Moles/Vol] 4.7 mmol/L Normal 3.5-5.1 [facility] Comment on above: Performed By: #### A 1C #### [facility] [address] [place] [address] Dr. Juan Pablo Kmainski Sodium [Moles/Vol] 134 mmol/L Critically low 136-145 [facility] Comment on above: Performed By: #### A 1C #### [facility] [address] [place] [address] Dr. Juan Pablo Kaminski Urea nitrogen [Mass/Vol] 17.0 mg/dL Normal 7.0-18.0 [facility] Comment on above: Performed By: #### A 1C #### [facility] [address] [place] [address] Dr. Juan Pablo Kaminski Urea nitrogen/Creatinine [Mass ratio] 15.9 mg/mg Normal [facility] Comment on above: Performed By: #### A 1C #### [facility] [address] [place] [address] Dr. Juan Pablo Kaminski [facility] 10-21-2021 ALT [Catalytic activity/Vol] 31 U/L Normal 16-63 [facility] Comment on above: Performed By: #### A 1C #### [facility] [address] [address] [address] Juan Pablo Kaminski GLYCOHEMOGLOBIN A1Con 2021 ADA RECOMMENDATION SEE BELOW Normal [facility] Comment on above: Result Comment: ADA RECOMMENDED LIMIT 4.0 - 6.0 ADA THERAPEUTIC TARGET < 7.0 ACTION SUGGESTED > 7.0 Performed By: #### A 1C #### [facility] [address] [address] [address] Juan Pablo Kaminski Glucose [Mass/Vol] 131 mg/dL Normal [facility] Comment on above: Performed By: #### A 1C #### [facility] [address] [address] [address] Juan Pablo Kaminski HbA1c (Bld) [Mass fraction] 6.2 % Normal 4.5-6.2 [facility] Comment on above: Performed By: #### A 1C #### [facility] [address] [address] [address] Juan Pablo Kaminski Vital Signs Date Time Vital Sign Value Performing Clinician Denis coles 07-09-2023 13:38-0400 Body height 190.5 cm DO Campbell Ball Work Phone: [facility] 07-09-2023 13:38-0400 Body mass index (BMI) [Ratio] 28 kg/m2 DO Campbell Ball Work Phone: [facility] 07-09-2023 13:38-0400 Body weight 101.6 kg DO Campbell Ball Work Phone: [facility] 07-09-2023 13:38-0400 Diastolic blood pressure 60 mm[Hg] DO Campbell Ball Work Phone: [facility] 07-09-2023 13:38-0400 Heart rate 78 /min DO Campbell Ball Work Phone: [facility] 07-09-2023 13:38-0400 Systolic blood pressure 143 mm[Hg] DO Campbell Ball Work Phone: [facility] 06-23-2023 09:16-0400 Body height 190.5 cm DO Campbell Ball Work Phone: [facility] 06-23-2023 09:16-0400 Body mass index (BMI) [Ratio] 28 kg/m2 DO Campbell Ball Work Phone: [facility] 06-23-2023 09:16-0400 Body weight 101.6 kg DO Campbell Ball Work Phone: [facility] 06-23-2023 09:16-0400 Diastolic blood pressure 64 mm[Hg] DO Campbell Ball Work Phone: [facility] 06-23-2023 09:16-0400 Heart rate 69 /min DO Campbell Ball Work Phone: [facility] 06-23-2023 09:16-0400 Respiratory rate 16 /min DO Campbell Ball Work Phone: [facility] 06-23-2023 09:16-0400 Systolic blood pressure 147 mm[Hg] DO Campbell Ball Work Phone: [facility] 05-21-2023 10:53-0500 Body height 190.5 cm DO Campbell Ball Work Phone: [facility] 05-21-2023 10:53-0500 Body mass index (BMI) [Ratio] 27 kg/m2 DO Campbell Ball Work Phone: [facility] 05-21-2023 10:53-0500 Body weight 98.03 kg DO Campbell Ball Work Phone: [facility] 05-21-2023 10:53-0500 Diastolic blood pressure 77 mm[Hg] DO Campbell Ball Work Phone: [facility] 05-21-2023 10:53-0500 Heart rate 76 /min DO Campbell Ball Work Phone: [facility] 05-21-2023 10:53-0500 Respiratory rate 12 /min DO Campbell Ball Work Phone: [facility] 05-21-2023 10:53-0500 Systolic blood pressure 133 mm[Hg] DO Campbell Ball Work Phone: [facility] 05-15-2023 13:10-0500 Body temperature 98.6 [degF] DO Campbell Ball Work Phone: [facility] 05-15-2023 13:10-0500 Diastolic blood pressure 90 mm[Hg] DO Campbell Ball Work Phone: [facility] 05-15-2023 13:10-0500 Heart rate 90 /min DO Campbell Ball Work Phone: [facility] 05-15-2023 13:10-0500 Respiratory rate 18 /min DO Campbell Ball Work Phone: [facility] 05-15-2023 13:10-0500 SaO2% (BldA) [Mass fraction] 97 % DO Campbell Ball Work Phone: [facility] 05-15-2023 13:10-0500 Systolic blood pressure 181 mm[Hg] DO Campbell Ball Work Phone: [facility] 05-15-2023 10:56-0500 Body height 190.5 cm DO Campbell Ball Work Phone: [facility] 05-15-2023 10:56-0500 Body weight 99.9 kg DO Campbell Ball Work Phone: [facility] 04-21-2023 14:30-0500 Body height 190.5 cm Campbell Ball Other [facility] [employer] Other 04-21-2023 14:30-0500 Body mass index (BMI) [Ratio] 28.07 kg/m2 Campbell Ball Other [facility] [employer] Other 04-21-2023 14:30-0500 Body weight 101.88 kg Campbell Ball Other [employer] Other 04-21-2023 14:30-0500 Diastolic blood pressure 68 mm[Hg] Campbell Ball Other [employer] Other 04-21-2023 14:30-0500 Respiratory rate 12 /min Campbell Ball Other [employer] Other 04-21-2023 14:30-0500 Systolic blood pressure 129 mm[Hg] Campbell Ball Other [employer] Other 03-17-2023 10:30-0500 Body height 190.5 cm Campbell Ball Other [employer] Other 03-17-2023 10:30-0500 Body mass index (BMI) [Ratio] 27.55 kg/m2 Campbell Ball Other [employer] Other 03-17-2023 10:30-0500 Body weight 99.97 kg Campbell Ball Other [employer] Other 03-17-2023 10:30-0500 Diastolic blood pressure 67 mm[Hg] Campbell Ball Other [employer] Other 03-17-2023 10:30-0500 Respiratory rate 12 /min Campbell Ball Other [employer] Other 03-17-2023 10:30-0500 Systolic blood pressure 159 mm[Hg] Campbell Ball Other [employer] Other 02-23-2023 09:30-0500 Body height 190.5 cm Campbell Ball Other [employer] Other 02-23-2023 09:30-0500 Body mass index (BMI) [Ratio] 28.02 kg/m2 Campbell Ball Other [employer] Other 02-23-2023 09:30-0500 Body weight 101.7 kg Campbell Ball Other [employer] Other 02-23-2023 09:30-0500 Diastolic blood pressure 78 mm[Hg] Campbell Ball Other [employer] Other 02-23-2023 09:30-0500 Respiratory rate 12 /min Campbell Ball Other [employer] Other 02-23-2023 09:30-0500 Systolic blood pressure 157 mm[Hg] Campbell Ball Other [employer] Other 02-19-2023 10:45-0500 Body height 190.5 cm Campbell Ball Other [employer] Other 02-19-2023 10:45-0500 Body mass index (BMI) [Ratio] 28 kg/m2 Campbell Ball Other [employer] Other 02-19-2023 10:45-0500 Body weight 101.61 kg Campbell Ball Other [employer] Other 02-19-2023 10:45-0500 Diastolic blood pressure 72 mm[Hg] Campbell Ball Other [employer] Other 02-19-2023 10:45-0500 Respiratory rate 12 /min Campbell Ball Other [employer] Other 02-19-2023 10:45-0500 Systolic blood pressure 144 mm[Hg] Campbell Ball Other [employer] Other 02-02-2023 13:37-0500 Body weight 102.06 kg Leticia Milian APRN.SLP TEACHER Work Phone: [facility] 02-02-2023 13:37-0500 Diastolic blood pressure 70 mm[Hg] Leticia Protection SALES AND SERVICE REPRESENTATIVE.[employer] TEACHER Work Phone: [facility] 02-02-2023 13:37-0500 Heart rate 65 /min Leticia Rukhsana SALES AND SERVICE REPRESENTATIVE.SLP TEACHER Work Phone: [facility] 02-02-2023 13:37-0500 Systolic blood pressure 146 mm[Hg] Leticia [employer] SALES AND SERVICE REPRESENTATIVE.SLP TEACHER Work Phone: [facility] 09-22-2022 12:15-0400 Body height 190.5 cm Campbell Ball Other [employer] Other 09-22-2022 12:15-0400 Diastolic blood pressure 82 mm[Hg] Campbell Ball Other [employer] Other 09-22-2022 12:15-0400 Systolic blood pressure 135 mm[Hg] Campbell Ball Other [employer] Other 09-17-2022 09:00-0400 Body height 190.5 cm Campbell Ball Other [employer] Other 09-17-2022 09:00-0400 Body mass index (BMI) [Ratio] 27.57 kg/m2 Campbell Ball Other [employer] Other 09-17-2022 09:00-0400 Body weight 100.06 kg Campbell Ball Other [employer] Other 09-17-2022 09:00-0400 Diastolic blood pressure 62 mm[Hg] Campbell Ball Other [employer] Other 09-17-2022 09:00-0400 Respiratory rate 12 /min Campbell Ball Other [employer] Other 09-17-2022 09:00-0400 Systolic blood pressure 128 mm[Hg] Campbell Ball Other [employer] Other 06-18-2022 10:00-0400 Body height 190.5 cm Campbell Ball Other [employer] Other 06-18-2022 10:00-0400 Body mass index (BMI) [Ratio] 28.02 kg/m2 Campbell Ball Other [employer] Other 06-18-2022 10:00-0400 Body weight 101.7 kg Campbell Ball Other [employer] Other 06-18-2022 10:00-0400 Diastolic blood pressure 62 mm[Hg] Campbell Ball Other [employer] Other 06-18-2022 10:00-0400 Respiratory rate 12 /min Campbell Ball Other [employer] Other 06-18-2022 10:00-0400 Systolic blood pressure 119 mm[Hg] Campbell Ball Other [employer] Other 04-08-2022 12:00-0500 Body height 190.5 cm Campbell Ball Other [employer] Other 04-08-2022 12:00-0500 Body mass index (BMI) [Ratio] 27.82 kg/m2 Campbell Ball Other [employer] Other 04-08-2022 12:00-0500 Body temperature 97.1 [degF] Campbell Ball Other [employer] Other 04-08-2022 12:00-0500 Body weight 100.97 kg Campbell Ball Other [employer] Other 04-08-2022 12:00-0500 Diastolic blood pressure 68 mm[Hg] Campbell Ball Other [employer] Other 04-08-2022 12:00-0500 SaO2% (BldA) [Mass fraction] 97 % Campbell Ball Other [employer] Other 04-08-2022 12:00-0500 Systolic blood pressure 124 mm[Hg] Campbell Ball Other [employer] Other 03-20-2022 10:00-0500 Body height 190.5 cm Campbell Ball Other [employer] Other 03-20-2022 10:00-0500 Body mass index (BMI) [Ratio] 27.95 kg/m2 Campbell Ball Other [employer] Other 03-20-2022 10:00-0500 Body weight 101.42 kg Campbell Ball Other [employer] Other 03-20-2022 10:00-0500 Diastolic blood pressure 60 mm[Hg] Campbell Ball Other [employer] Other 03-20-2022 10:00-0500 Respiratory rate 12 /min Campbell Ball Other [employer] Other 03-20-2022 10:00-0500 Systolic blood pressure 112 mm[Hg] Campbell Ball Other [employer] Other 01-08-2022 08:47-0400 Body weight 97.52 kg Leonard Dugan MD Work Phone: [facility] 01-08-2022 08:47-0400 Diastolic blood pressure 61 mm[Hg] Leonard Dugan MD Work Phone: [facility] 01-08-2022 08:47-0400 Heart rate 72 /min Leonard Dugan MD Work Phone: [facility] 01-08-2022 08:47-0400 Systolic blood pressure 139 mm[Hg] Leonard Dugan MD Work Phone: [facility] 12-26-2021 08:32-0400 Body temperature 98 [degF] DO Campbell Ball Work Phone: [facility] 12-26-2021 08:32-0400 Diastolic blood pressure 62 mm[Hg] DO Campbell Ball Work Phone: [facility] 12-26-2021 08:32-0400 Heart rate 75 /min DO Campbell Ball Work Phone: [facility] 12-26-2021 08:32-0400 Respiratory rate 18 /min DO Campbell Ball Work Phone: [facility] 12-26-2021 08:32-0400 SaO2% (BldA) [Mass fraction] 98 % DO Campbell Ball Work Phone: [facility] 12-26-2021 08:32-0400 Systolic blood pressure 146 mm[Hg] DO Campbell Ball Work Phone: [facility] 12-17-2021 16:22-0400 Body height 190.5 cm DO Campbell Ball Work Phone: [facility] 12-17-2021 16:22-0400 Body weight 97.52 kg DO Campbell Ball Work Phone: [facility] 12-17-2021 16:19-0400 Body temperature 98.4 [degF] DO Campbell Ball Work Phone: [facility] 12-17-2021 16:19-0400 Diastolic blood pressure 63 mm[Hg] DO Campbell Ball Work Phone: [facility] 12-17-2021 16:19-0400 Heart rate 66 /min DO Campbell Ball Work Phone: [facility] 12-17-2021 16:19-0400 Respiratory rate 16 /min DO Campbell Ball Work Phone: [facility] 12-17-2021 16:19-0400 SaO2% (BldA) [Mass fraction] 96 % DO Campbell Ball Work Phone: [facility] 12-17-2021 16:19-0400 Systolic blood pressure 135 mm[Hg] DO Campbell Ball Work Phone: [facility] 12-16-2021 14:41-0400 Diastolic blood pressure 62 mm[Hg] Leonard Dugan MD Work Phone: [facility] 12-16-2021 14:41-0400 Heart rate 69 /min Leonard Dugan MD Work Phone: [facility] 12-16-2021 14:41-0400 Respiratory rate 16 /min Leonard Dugan MD Work Phone: [facility] 12-16-2021 14:41-0400 Systolic blood pressure 141 mm[Hg] Leonard Dugan MD Work Phone: [facility] 12-11-2021 18:25-0400 Body temperature 97.5 [degF] DO Campbell Ball Work Phone: [facility] 12-11-2021 18:25-0400 Diastolic blood pressure 88 mm[Hg] DO Campbell Ball Work Phone: [facility] 12-11-2021 18:25-0400 Heart rate 67 /min DO Campbell Ball Work Phone: [facility] 12-11-2021 18:25-0400 Respiratory rate 20 /min DO Campbell Ball Work Phone: [facility] 12-11-2021 18:25-0400 SaO2% (BldA) [Mass fraction] 99 % DO Campbell Ball Work Phone: [facility] 12-11-2021 18:25-0400 Systolic blood pressure 175 mm[Hg] DO Campbell Ball Work Phone: [facility] 12-11-2021 16:57-0400 Body height 190.5 cm DO Campbell Ball Work Phone: [facility] 12-11-2021 16:57-0400 Body weight 98.5 kg DO Campbell Ball Work Phone: [facility] 12-10-2021 10:50-0400 Body weight 95.25 kg Nurse Emelia Work Phone: [facility] 12-10-2021 10:50-0400 Diastolic blood pressure 80 mm[Hg] Nurse Emelia Work Phone: [facility] 12-10-2021 10:50-0400 Heart rate 59 /min Nurse Emelia Work Phone: [facility] 12-10-2021 10:50-0400 Systolic blood pressure 152 mm[Hg] Nurse Emelia Work Phone: [facility] 12-09-2021 14:27-0400 Body weight 95.25 kg [employer] Work Phone: [facility] 12-09-2021 14:27-0400 Diastolic blood pressure 68 mm[Hg] [employer] Work Phone: [facility] 12-09-2021 14:27-0400 Heart rate 70 /min [employer] Work Phone: [facility] 12-09-2021 14:27-0400 Systolic blood pressure 164 mm[Hg] [employer] Work Phone: [facility] 11-12-2021 11:23-0400 Body weight 96.16 kg Leonard Dugan MD Work Phone: [facility] 11-12-2021 11:23-0400 Diastolic blood pressure 73 mm[Hg] Leonard Dugan MD Work Phone: [facility] 11-12-2021 11:23-0400 Heart rate 56 /min Leonard Dugan MD Work Phone: [facility] 11-12-2021 11:23-0400 Systolic blood pressure 162 mm[Hg] Leonard Dugan MD Work Phone: [facility] Encounters Encounter Date Encounter Type Care Provider Facility Start: 07-09-2023 End: 07-09-2023 ambulatory DO Campbell Ball Work Phone: [facility] Work Phone: Start: 07-09-2023 End: 07-09-2023 Patient encounter procedure DO Campbell Ball Work Phone: [facility] Physician [facility] Work Phone: Start: 07-06-2023 Non-patient / Non-visit DO Lenin frank Ball Work Phone: [facility] Work Phone: Start: 06-23-2023 End: 06-23-2023 ambulatory DO Campbell Ball Work Phone: [facility] Work Phone: Start: 06-23-2023 End: 06-23-2023 Patient encounter procedure DO Campbell Ball Work Phone: [facility] Work Phone: Start: 05-31-2023 Non-patient / Non-visit DO Lenin frank Ball Work Phone: [facility] Work Phone: Start: 05-21-2023 End: 05-21-2023 Patient encounter procedure DO Campbell Ball Work Phone: [facility] Physician [facility] Work Phone: Start: 05-15-2023 End: 05-15-2023 Emergency department patient visit Campbell Quentin Facility:[facility] Start: 05-15-2023 End: 05-15-2023 Emergency department patient visit DO Campbell Ball Work Phone: [facility] Work Phone: Start: 05-03-2023 Non-patient / Non-visit DO Lenin monika Ball Work Phone: [facility] Physician [facility] Work Phone: Start: 04-30-2023 Non-patient / Non-visit DO Lenin Naranjo Work Phone: [facility] Physician [facility] Work Phone: Start: 04-21-2023 End: 04-21-2023 ambulatory Campbell Naranjo Other [employer] Other Start: 04-21-2023 Transitional care manage srvc 14 day discharge Campbell Ball [facility] Start: 04-19-2023 End: 04-19-2023 ambulatory Campbell Naranjo Other [employer] Other Start: 04-19-2023 Telephone encounter Campbell Ball [facility] Start: 04-15-2023 End: 04-15-2023 ambulatory Campbell Naranjo Other [employer] Other Start: 04-15-2023 Telephone encounter Campbell Ball [facility] Start: 03-17-2023 End: 03-17-2023 ambulatory Campbell Naranjo Other [employer] Other Start: 03-17-2023 Transitional care manage srvc 14 day discharge Campbell Ball [facility] Start: 03-04-2023 End: 03-04-2023 ambulatory Campbell Naranjo Other [employer] Other Start: 03-04-2023 Telephone encounter Campbell Ball [facility] Start: 02-23-2023 End: 02-23-2023 ambulatory Campbell Ball Other [employer] Other Start: 02-23-2023 Office outpatient vi sit 15 minutes Campbell Ball [facility] Start: 02-23-2023 Telephone encounter Campbell Ball [facility] Start: 02-19-2023 End: 02-19-2023 ambulatory Campbell Ball Other [employer] Other Start: 02-19-2023 Office outpatient vi sit 15 minutes Campbell Naranjo [facility] Start: 02-02-2023 End: 02-02-2023 ambulatory LETICIA MILIAN Facility:[facility] Start: 02-02-2023 End: 02-02-2023 Patient encounter procedure Leticia Milian SALES AND SERVICE REPRESENTATIVE.SLP TEACHER Work Phone: Urology Comment on above: BPH with obstruction /lower urinary tract symptoms (Primary Dx); Recurrent UTI; Weak urinary stream Start: 01-19-2023 End: 01-19-2023 ambulatory LETICIAAddis MILIAN Facility:[facility] Start: 01-13-2023 End: 01-13-2023 Emergency department patient visit Low Carter Facility:[facility] Start: 01-13-2023 End: 01-13-2023 Emergency department patient visit DO Campbell Naranjo Work Phone: [facility] Work Phone: Start: 12-21-2022 End: 12-21-2022 ambulatory Campbell Naranjo Other [employer] Other Start: 12-21-2022 Telephone encounter Campbell Naranjo [facility] Start: 09-22-2022 End: 09-22-2022 ambulatory Campbell Naranjo Other [employer] Other Start: 09-22-2022 Office outpatient vi sit 15 minutes Campbell Naranjo [facility] Start: 09-20-2022 End: 09-20-2022 ambulatory Cornell Baptiste Other [employer] Other Start: 09-20-2022 Encounter by gabbi Baptiste [facility] Start: 09-17-2022 End: 09-17-2022 ambulatory Campbell Naranjo Other [employer] Other Start: 09-17-2022 Office outpatient vi sit 25 minutes Campbell Naranjo [facility] Start: 09-15-2022 End: 09-15-2022 ambulatory Cornell Baptiste Other [employer] Other Start: 09-15-2022 Encounter by gabbi Baptiste [facility] Start: 07-28-2022 End: 07-28-2022 ambulatory LETICIA MILIAN Facility:[facility] Start: 07-20-2022 End: 07-20-2022 ambulatory LETICIA MILIAN Facility:[facility] Start: 06-25-2022 End: 06-26-[address] CAMPBELL NARANJO Facility:[facility] Start: 06-18-2022 End: 06-18-2022 ambulatory Campbell Naranjo Other [employer] Other Start: 06-18-2022 Office outpatient vi sit 25 minutes Campbell Naranjo [facility] Start: 06-02-2022 End: 06-03-[address] CAMPBELL NARANJO Facility:[facility] Start: 04-08-2022 End: 04-08-2022 ambulatory Campbell Naranjo Other [employer] Other Start: 04-08-2022 Office outpatient vi sit 15 minutes Campbell Naranjo [facility] Start: 03-24-2022 End: 03-24-2022 ambulatory Campbell Naranjo Other [employer] Other Start: 03-24-2022 Telephone encounter Campbell Naranjo [facility] Start: 03-20-2022 Office outpatient vi sit 25 minutes Campbell Naranjo [facility] Start: 03-20-2022 End: 03-21-[address] CAMPBELL NARANJO [facility] [employer] Other Start: 01-08-2022 End: 01-08-2022 Patient encounter procedure Leonard Dugan MD Work Phone: Urology Comment on above: Chronic epididymitis (Primary Dx); Left hydrocele; Weak urinary stream; BPH without obstruction/lower urinary tract symptoms; Epididymitis Start: 01-07-2022 Refill Leonard Dugan MD Work Phone: Urology Comment on above: Refill Request Start: 12-26-2021 End: 12-26-2021 ambulatory DO Campbell Naranjo Work Phone: [facility] Work Phone: Start: 12-26-2021 End: 12-26-2021 Discharged Recurring DO Campbell Naranjo Work Phone: [facility] Start: 12-25-2021 End: 12-26-[address] CAMPBELL NARANJO Facility:[facility] Start: 12-17-2021 End: 12-17-2021 Emergency department patient visit DO Campbell Naranjo Work Phone: [facility] Start: 12-16-2021 End: 12-16-2021 Patient encounter procedure Leonard Dugan MD Work Phone: Urology Comment on above: Retention of urine ( Primary Dx); Flaccid bladder Start: 12-15-2021 Telephone encounter Leticia puentes APRN.CNP Work Phone: Urology Comment on above: Patient Update Start: 12-11-2021 End: 12-11-2021 Emergency department patient visit DO Campbell Naranjo Work Phone: [facility] Start: 12-11-2021 Telephone encounter Leonard Dugan MD Work Phone: Urology Comment on above: Patient Update Start: 12-10-2021 End: 12-10-2021 Nursing evaluation of patient and report Nurse [facility] Emelia Work Phone: Urology Comment on above: Urinary tract infect ion without hematuria, site unspecified (Primary Dx); Feeling of incomplete bladder emptying; Benign prostatic hyperplasia with urinary retention Start: 12-09-2021 End: 12-09-2021 Nursing evaluation of patient and report [employer] Work Phone: Urology Comment on above: Urinary frequency (P rimary Dx); Urinary urgency; Urinary straining; Feeling of incomplete bladder emptying Start: 12-08-2021 Telephone encounter Leonard Dugan MD Work Phone: Urology Comment on above: Appointment (Resched ule catheter change) Start: 11-26-2021 End: 11-27-2021 Emergency department patient visit CAMPBELL NARANJO Facility:[facility] Start: 11-21-2021 Telephone encounter Leonard Dugan MD [...] Emergency department patient visit RAN HOUSTON JR Facility:[facility] Start: 10-23-2021 End: 10-24-[address] CAMPBELL NARANJO Facility:[facility] Start: 10-21-2021 End: 10-22-[address] CAMPBELL NARANJO Facility:[facility] Start: 10-20-2021 Adult health examination Campbell Naranjo Other [employer] Other Start: 07-17-2021 End: 07-18-[address] CAMPBELL NARANJO Facility:[facility] Start: 01-09-2020 End: 01-09-2020 Pre-procedure evaluation check Campbell Naranjo Other [employer] Other Procedures Date Procedure Procedure Detail Performing [...] microalbumin profile DTaP,Tdap,Td Vaccine (3 - Tdap) [facility] Start: 11-13-2022 Covid-19 Vaccine ( season) Covid-19 Vaccine () [facility] Start: 03-15-2022 Advance Directive Discussion Advance Directive Discussion [facility] Start: 03-15-2022 Depression Assessment Depression Ass essment [facility] Start: 01-08-2022 End: 03-10-2022 Bacteria identified in Urine by Culture URINE CULTURE Microbiology Routine Left hydrocele Chronic epididymitis Weak urinary stream BPH without obstruction/lower urinary tract symptoms Epididymitis Expected: 01/08/2022 (Approximate), Expires: 03/10/2022 [facility] Work Phone: Comment on above: Expected: 01/08/2022 (Approximate), Expires: 03/10/2022 Start: 01-08-2022 End: 03-10-2022 URINALYSIS, REFLEX MICROSCOPIC URINALYSIS, REFLEX MICROSCOPIC Lab Routine Left hydrocele Chronic epididymitis Weak urinary stream BPH without obstruction/lower urinary tract symptoms Epididymitis Expected: 01/08/2022 (Approximate), Expires: 03/10/2022 [facility] Work Phone: Comment on above: Expected: 01/08/2022 (Approximate), Expires: 03/10/2022 Start: 12-10-2021 End: 02-09-2022 Bacteria identified in Urine by Culture URINE CULTURE Microbiology Routine Urinary tract infection without hematuria, site unspecified Expected: 12/10/2021, Expires: 02/09/2022 [facility] Work Phone: Comment on above: Expected: 12/10/2021 , Expires: 02/09/2022 Start: 11-13-2021 Influenza vaccination INFLUENZA (#1) [facility] Start: 11-12-2021 URODYNAMICS URODYNAMICS Pr ocedures Routine 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 Expected: 11/12/2021 (Approximate) [facility] Work Phone: Comment on above: Expected: 11/12/2021 (Approximate) Start: 08-11-2021 COVID-19 VACCINE (5 - Booster for Pfizer series) COVID-19 VACCINE (5 - Booster for Pfizer series) [facility] Start: 03-15-2021 ADVANCE DIRECTIVE DISCUSSION ADVANCE DIRECTIVE DISCUSSION [facility] Start: 03-15-2021 DEPRESSION ASSESSMENT DEPRESSION ASS ESSMENT [facility] Start: 05-26-2012 3 comp foot exam completed DIABETIC FOOT EXAM [facility] Start: 1998 Hepatitis B Vaccine (1 of 3 - Risk 3-dose series) Hepatitis B Vaccine (1 of 3 - Risk 3-dose series) [facility] Start: 1998 RSV Vaccine (1 - 1-d ose 60+ series) RSV Vaccine (1 - 1-dose 60+ series) [facility] Start: 1988 SHINGRIX VACCINE (1 of 2) SHINGRIX VACCINE (1 of 2) [facility] Start: 1957 Urine microalbumin profile DTAP,TDAP,TD (1 - Tdap) [facility] Start: 1956 Hepatitis B surface antibody level LDL CHOLESTEROL [facility] Start: 1948 Hepatitis B screening URINE ALBUMIN:CREATININE RATIO [facility] Start: 1948 Hepatitis C antibody , confirmatory test DILATED RETINAL EXAM [facility] Start: 1944 PNEUMOCOCCAL: 65+ (1 - PCV) PNEUMOCOCCAL: 65+ (1 - PCV) [facility] Start: 1943 Hemoglobin A1c/Hemoglobin.total in Blood HBA1C [facility] Bacteria identified in Urine by Culture [facility] End: 02-02-2024 Bacteria identified in Urine by Culture URINE CULTURE Microbiology Routine Recurrent UTI 5 Occurrences starting 02/02/2023 until 02/02/2024 [facility] Work Phone: Comment on above: 5 Occurrences starti ng 02/02/2023 until 02/02/2024 Patient Education [facility] Work Phone: Patient referral [facility] Work Phone: End: 01-14-2024 Urinalysis complete panel - Urine URINALYSIS, WITH MICROSCOPIC Lab Routine Recurrent UTI 5 Occurrences starting 02/02/2023 until 01/14/2024 [facility] Work Phone: Comment on above: 5 Occurrences starti ng 02/02/2023 until 01/14/2024 [facility] Immunizations Immunization Date Immunization Notes Care Provider Jens eid 12-01-2022 influenza virus vaccine, unspecified formulation DO Campbell Naranjo Work Phone: [facility] 12-01-2022 influenza, high dose seasonal, preservative-free Campbell Naranjo Other [facility] [employer] Other 12-19-2021 influenza virus vaccine, split virus (incl. purified surface antigen) Campbell Naranjo Other [facility] [employer] Other 12-19-2021 influenza virus vaccine, unspecified formulation DO [employer] Work Phone: [facility] 12-10-2020 influenza virus vaccine, split virus (incl. purified surface antigen) Campbell Naranjo Other [facility] [employer] Other 12-10-2020 influenza virus vaccine, unspecified formulation DO Campbell Naranjo Work Phone: [facility] 01-09-2020 influenza virus vaccine, split virus (incl. purified surface antigen) Campbell Naranjo Other [facility] [employer] Other 01-09-2020 influenza virus vaccine, unspecified formulation DO Campbell [employer] Work Phone: [facility] 01-14-2018 influenza virus vaccine, split virus (incl. purified surface antigen) Campbell Naranjo Other [facility] [employer] Other 01-14-2018 influenza virus vaccine, unspecified formulation DO Campbell Naranjo Work Phone: [facility] 12-30-2016 influenza virus vaccine, split virus (incl. purified surface antigen) Campbell Naranjo Other [employer] Other 12-30-2016 influenza virus vaccine, unspecified formulation DO Campbell [employer] Work Phone: [facility] 03-16-2016 influenza virus vaccine, split virus (incl. purified surface antigen) Campbell Naranjo Other [employer] Other 03-16-2016 influenza virus vaccine, unspecified formulation DO [employer] Work Phone: [facility] 05-01-2015 pneumococcal conjuga te vaccine, 13 valent Campbell Naranjo Other [facility] 05-01-2015 pneumococcal Conjuga te, unspecified formulation; Translations: [Need for prophylactic vaccination against Streptococcus pneumoniae (pneumococcus)] Campbell Naranjo Other [employer] Other 12-28-2012 tetanus and diphther ia toxoids, adsorbed, preservative free, for adult use (5 Lf of tetanus toxoid and 2 Lf of diphtheria toxoid) Campbell Naranjo Other [facility] 01-28-2012 diphtheria, tetanus toxoids and acellular pertussis vaccine, unspecified formulation Campbell Naranjo Other [facility] 01-20-2012 pneumococcal polysaccharide vaccine, 23 valent Campbell Naranjo Other [facility] 05-18-2011 pneumococcal polysaccharide vaccine, 23 valent Campbell Naranjo Other [facility] Payers Date Payer Category Payer Self-pay 2016 Unknown KRISTIN RAMOS DICARE SUPPLEMENT [id number] 2016-Present [phone] [address] [place] [address] Indemnity [id number] 2003 Medicare MEDICARE MEDICAR E A AND B [id number] 2003-Present [phone] [address] [address] [place] [address] Medicare [id number] 1959 Medicare [id number] 1959 Medicare [id number] 1938 Unknown [id number] 3 1938 Unknown [id number] 3 1938 Unknown [id number] 3 1938 Unknown [id number] 3 1938 Unknown [id number] 3 1938 Unknown [id number] 3 1938 Unknown [id number] 3 1938 Unknown [id number] 3 Medicare Medicare Outpatient [id number] 7A [id number] Unknown [facility] Insur [id number] Unknown [id number] 1 Unknown [id number] 1 Social History Date Type Detail Facility Start: 10-24-2009 End: 12-16-2021 Tobacco smoking status NDIS Ex-smoker [facility] End: 03-15-1971 History of tobacco use Current smoker [facility] End: 03-15-1971 History of tobacco use Cigarette Smoker [facility] Start: 10-24-2009 End: 07-28-2022 Cigarettes smoked current (pack per day) - Reported 1.5 [facility] Start: 11-07-2021 End: 12-16-2021 Alcohol intake Current drinker of alcohol (finding) [facility] Start: 1940 Sex Assigned At Not on file C [facility] Start: 10-28-2021 End: 01-08-2022 Exposure to SARS-CoV-2 (event) Not sure [facility] Start: 12-11-2021 End: 05-15-2023 Tobacco smoking status NHIS Never smoked tobacco (finding) [facility] Start: 1940 Sex Assigned At Male F [facility] Start: 12-16-2021 Tobacco use and exposure Smokeless tobacco non-user [facility] Start: 12-16-2021 End: 07-28-2022 Sex Assigned At dax [employer] Other National Score (1-10 0), lower number is lower risk 61 [facility] Medical Equipment Procedure Code Equipment Code [...] - recommend Picc line and IV antibiotics [employer] Other 01-03-2024 Evaluation note* Encounter Date Diagnosis [...] to restart Amlodipine. Continue PAUL for now. [employer] Other 12-12-2023 Evaluation note* Encounter Date Diagnosis [...] and inserts to prevent callus formation.Fall precautions. [employer] Other 12-08-2023 Evaluation note* Encounter Date Diagnosis [...] ulcers. Recommend routine foot care w/ Podiatry [employer] Other 11-21-2023 NoteHNO ID: [id number] Author: Leticia Milian APRN.[facility] Service: ? Author Type: Nurse Practitioner Type: Progress Notes Filed: 02/02/2023 2:13 PM Note Text: Norberto Washington [address] [place] [id number] HISTORY OF PRESENT ILLNESS: Seen 07/28/22 for [...] see lab Duration: BPH w obs/luts, UTI [facility] [employer] SYMPTOMS SCORE. 1. INCOMPLETE EMPTYING [...] s (more content not included)... [facility]11-21-2023 Miscellaneous Notes* Addendum Note - Leticia Milian APRN.CNP - 02/02/2023 2:16 PM ESTAddended by: LETICIA MILIAN on: 02/02/2023 02:16 PM Modules accepted: Orders [facility] in [facility] History of Present illness Narrative* Leticia Milian APRN.CNP - 02/02/2023 1:40 PM EST Norberto Washington [address] [place] [id number] HISTORY OF PRESENT ILLNESS: Seen 07/28/22 for [...] see lab Duration: BPH w obs/luts, UTI [facility] [facility] [employer] SYMPTOMS SCORE. 1. INCOMPLETE EMPTYING [...] Making Level: 4 - Moderate Leticia Milian APRN.SLP TEACHER documented [facility] Evaluation note* Encounter Date Diagnosis Assessment [...] w/ acute infection Requires no additional treatment [employer] Other 07-06-2023 Evaluation note* Encounter Date Diagnosis [...] exercise for 30 minutes, 3-5 times weekly. [employer] Other 05-16-2023 NoteHNO ID: [id number] Author: Leticia Milian APRN.SLP TEACHER Service: ? Author Type: Nurse Practitioner Type: Progress Notes Filed: 07/30/2022 4:34 PM Note Text: Norberto Washington [address] [facility] [address] HISTORY OF PRESENT ILLNESS: Seen 01/20/22 for [...] 07/20/22=neg UA 07/20/22=leuk esterase 250, wbc 11-25 [facility] [employer] SYMPTOMS SCORE. 1. INCOMPLETE EMPTYING [...] PVR Med (more content not included)...[facility]04-06-2023 Evaluation note* Encounter Date Diagnosis Assessment Notes [...] w/ antibiotics and treatment of urinary retention [employer] Other 03-21-2023 NotePROCEDURE: XR FOOT LT MIN [...] Electronically authenticated by: SAMY TORRES Date: 2022-06-02 15:48[facility]03-21-2023 NotePROCEDURE: XR FOOT LT MIN [...] Electronically authenticated by: SAMY TORRES Date: 2022-06-02 15:48[facility]01-25-2023 Evaluation note* Encounter Date Diagnosis [...] lesion was treated w/ cryotherapy w/o complications [employer] Other 01-06-2023 Evaluation note* Encounter Date Diagnosis [...] Mar, Hesitancy of micturition (ICD-10 - R39.11) [employer] Other 10-27-2022 History of Present illness Narrative* Zuleika Hackett - 01/08/2022 8:20 AM EDT Norberto Washington [address] [id number] Mr. Washington presents with chief complaints of: Enlarged L testicle. ED 11/07/21: PVR 179 cc, refused a catheter, scheduled to undergo a cystoscopy in [place] but was cancelled due to his urologist [...] epididymitis Hydroceles: None Spermatoceles: None Varicoceles: None [facility] [facility] [employer] SYMPTOMS SCORE. Date 01/08/2022 1. [...] in the presence of Dr. Dugan. Zuleika Hackett Scribe Provider Attestation: ILeonard M.D., personally performed the services described in this documentation. All medicalrecord entries made by the scribe were at my direction and in my presence. I have reviewed the chart and discharge instructions (if applicable) and agree that the record reflects my personal performance and is accurate and complete. Leonard Dugan M.D. documented in this encounterPark[facility]10-[facility] Hospital Discharge instructions Additional Instructions Continue taking Flomax as prescribed Avoid drinking any fluids several hours before bed Call your urologist tomorrow for a follow-up appointment Return if you are unable to urinate, develop blood in your urine, abdominal pain, [facility] Work Phone: [phone] History of Present illness Narrative* Leonard Dugan MD - 12/16/2021 2:51 PM EDT Norberto Washington [address] [facility] [id number] HISTORY OF PRESENT ILLNESS: ED 11/07/21: PVR 179 cc, refused a catheter, scheduled to undergo a cystoscopy in [place] but was cancelled due to his urologist [...] Otherwise, intermittent catheterization. Agreed indwelling catheter 18 spanish. Flomax will not work, no prostate tissue [...] well resected prostate (had 2 TURP) in [place] PLAN: (Management Options): -Start Flomax one cap [...] Moderate Leonard Dugan MD documented in this encounterPark[facility]10-[facility]22 Miscellaneous Notes* Telephone Encounter - Valente Bell LPN - 12/15/2021 3:58 PM EDT Called and spoke to patient regarding message below. Patient states understanding to information provided. No further action required at this time. * Telephone Encounter - Leticia Milian APRN.CNP - 12/15/2021 10:13 AM EDT Please call and confirm that pt received [employer] message to start new script sent for antibiotic. Elan Elizondo NP documented in this encounterPark[facility] Hospital09-29-2022 Miscellaneous Notes* Telephone Encounter - Valente [...] be draining normally now. documented in this encounterParkwood Hospital09-28-2022 Nurse Note* Stephanie Kaur RN - [...] hyperplasia with urinary retention documented in this [facility] History of Present illness Narrative* Leonard Dugan MD - 12/09/2021 5:05 PM EDT [facility] PHYSICIAN INTERPRETATION: [...] contractility Leonard Dugan MD documented in this encounterParkwood [facility]09-27-[facility]22 Nurse Note* Stephanie Kaur RN - 12/09/2021 3:57 PM EDT [facility] URODYNAMICS LAB [...] of incomplete bladder emptying documented in this encounterParkwood [facility]09-26-[facility]22 Miscellaneous Notes* Telephone Encounter - Stephanie Kaur RN - 12/08/2021 4:11 PM EDT LM for patient to reschedule catheter change for tomorrow. Last changed 11/26/21 in ED. Will be due for change on 12/23/21. Stephanie Kaur R.N. documented in this encounterParkwood Hospital09-12-2022 Miscellaneous Notes* Telephone Encounter - Sonia [...] has been busy with his spouse at [facility] having to care for her needs and hadn't called earlier when it first started on Wednesday. He was hoping it would clear up but it has not, urine is between Vanderbilt tint & Brown and he does see small clots. Patient does have pain at the end of his Penis slight swelling noted (he has been applying Neosporin) Denies difficulty with urine draining into Hamilton bag, he does not have back pain Please advise documented in this encounterParkwood Hospital08-31-2022 Nurse Note* Stephanie Kaur RN - [...] Education Session: None Instruction Provided To: Patient Brass Cutter Present: not applicable Discipline: Nursing Learning Topic: [...] supervision. Stephanie Kaur RN documented in this encounterParkwood Hospital08-31-2022 Procedure note* Leonard Dugan MD - 11/12/2021 11:00 AM EDTProcedure(s): CYSTOSCOPY Pre-Procedure Diagnose(s): BPH with obstruction/lower urinary tract symptoms Post-Procedure Diagnose(s): BPH with obstruction/lower urinary tract symptoms PROCEDURE: CYSTOSCOPY INDICATIONS: ED 11/07/21: PVR 179 cc, refused a catheter, scheduled to undergo a cystoscopy in [place] but was cancelled due to his urologist [...] Otherwise, intermittent catheterization. Agreed indwelling catheter 18 spanish. By signing my name below, I, Zuleika Hackett, attest that this documentation has been prepared under the direction and in the presence of Dr. Dugan. Zuleika Hackett Scribe Provider Attestation: I, Leonard Dugan M.D., personally performed the services described in this documentation. All medicalrecord entries made by the scribe were at my direction and in my presence. I have reviewed the chart and discharge instructions (if applicable) and agree that the record reflects my personal performance and is accurate and complete. Leonard Dugan M.D. documented in this encounterParkwood Hospital08-29-2022 History of Present illness Narrative* Leonard Dugan MD - 11/10/2021 12:11 PM EDT Cysto with uroflow 11-12-21 ED 11/07/21: PVR 179 cc, refused a catheter, scheduled to undergo a cystoscopy in [place] but was cancelled due to his urologist was sick Pt underwent TURP x2 within a week AUA= 3-5 wach ROSAMARIA 11/10/21 - 10 gm, rubbery, no nodules US 11/07/21:= mildly complex renal cysts UA and culture 11-07-21= -ve May need UDS based on cysto [facility]* Diagnosis BPH with obstruction/lower urinary tract symptoms- Primary Hypertrophy of prostate with urinary obstruction and other lower urinary tract symptoms (LUTS) Benign prostatic hyperplasia with urinary retention documented [facility] this [facility]* Diagnosis Urinary frequency- Primary Urinary urgency Urgency of urination Urinary straining Straining on urination Feeling of incomplete bladder emptying Incomplete bladder emptying [facility]* Diagnosis Urinary tract infection without hematuria, site unspecified- Primary Feeling of incomplete bladder emptying Incomplete bladder emptying Benign prostatic hyperplasia with urinary retention documented in this encounter [facility] noteNo assessment information availableMer[facility] Work Phone: Evaluation note* Diagnosis Retention of urine- Primary Retention of urine, unspecified Flaccid bladder Neurogenic bladder, NOS documented in this encounter [facility] note* Diagnosis Chronic epididymitis- Primary Left hydrocele Hydrocele, unspecified Weak urinary stream Slowing of urinary stream BPH without obstruction/lower urinary tract symptoms Hypertrophy of prostate without urinary obstruction and other lower urinary tract symptoms (LUTS) Epididymitis Orchitis and epididymitis, unspecified documented in this encounter [facility] noteNo InformationNortLe[facility] [address] [employer] Other Evaluation note* Diagnosis BPH with obstruction/lower urinary tract symptoms- Primary Hypertrophy of prostate with urinary obstruction and other lower urinary tract symptoms (LUTS) Recurrent UTI Urinary tract infection, site not specified Weak urinary stream Slowing of urinary stream documented in this encounter [facility] note* Diagnosis Onset Date Resolution Status Chronic venous insufficiency of lower extremity acute Type 2 diabetes mellitus with hyperglycemia acute Chronic kidney disease acute Chronic venous insufficiency of lower extremity acute Elevated cholesterol acute HTN (hypertension) acute Type 2 diabetes mellitus with hyperglycemia acute [facility] Work Phone: Evaluation note* Diagnosis Onset Date Resolution Status Chronic venous insufficiency of lower extremity acute Type 2 diabetes mellitus with hyperglycemia acute Chronic kidney disease acute Chronic venous insufficiency of lower extremity acute Elevated cholesterol acute HTN (hypertension) acute Overweight acute Type 2 diabetes mellitus with hyperglycemia acute [facility] Work Phone: History general Narrative - Reported* [...] cystoscopy 09.20.2019 Hospitalization History see surgical history [employer] Other Reason for referral (narrative)* Outpatient Procedure (Routine) - Pending Review Specialty Diagnoses / Procedures Referred By Marce dillon Referred To Contact [facility] Diagnoses 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 Procedures URODYNAMICS MAGGY POST-VOIDING RESIDUAL URINE&/BLADDER CAP Leonard Dugan MD [address] [place] [address] [facility] [address] [place] [address] Referral ID Status Reason Start Date Expiration Date Visits Requested Visits Authorized [id number] Pending Review Auto-Generat ed Referral 11/12/2021 11/12/2022 1 1 [facility] Summary Purpose Family History Relationship Condition Age [...] (hypertension) Type 2 diabetes mellitus with hyperglycemia Chief Complaint Leg pain ER follow up Amb Documentation CHECK UP pre op clearance Reason for Visit Chronic venous insuf ficiency of lower extremity Type 2 diabetes mellitus with hyperglycemia Chronic kidney disease Chronic venous insufficiency of lower extremity Elevated cholesterol HTN (hypertension) Overweight Type 2 diabetes mellitus with hyperglycemia Reason for Referral Reason Refer for diabetic f oot ulcer and calluses Diagnosis 1 Foot abscess, right (L02.611) Diagnosis 2 Callus of foot (L84) Diagnosis 3 Hammer toe 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 DATE CREATED AUTHOR AUTHOR'S ORGANIZ ATION 06/25/2022 [facility] DATE CREATED AUTHOR AUTHOR'S ORGANIZ ATION 02/04/2023 [facility] DATE CREATED AUTHOR AUTHOR'S ORGANIZ ATION 05/27/2023 [facility] Source Comments (unrecognize d section and content) In the event this informatio n is protected by the Federal Confidentiality of Alcohol and Drug Abuse Patient Records regulations: The Federal rules restrict any use of the information to criminally investigate or prosecute any alcohol or drug abuse patient.[facility] HospitalIn the event this information is protected by the Federal Confidentiality of Alcohol and Drug Abuse Patient Records regulations: The Federal rules restrict any use of the information to criminally investigate or prosecute any alcohol or drug abuse patient.[facility] HospitalIn the event this information is protected by the Federal Confidentiality of Alcohol and Drug Abuse Patient Records regulations: The Federal rules restrict any use of the information to criminally investigate or prosecute any alcohol or drug abuse patient.[facility] HospitalIn the event this information is protected by the Federal Confidentiality of Alcohol and Drug Abuse Patient Records regulations: The Federal rules restrict any use of the information to criminally investigate or prosecute any alcohol or drug abuse patient.[facility] HospitalIn the event this information is protected by the Federal Confidentiality of Alcohol and Drug Abuse Patient Records regulations: The Federal rules restrict any use of the information to criminally investigate or prosecute any alcohol or drug abuse patient.[facility] HospitalIn the event this information is protected by the Federal Confidentiality of Alcohol and Drug Abuse Patient Records regulations: The Federal rules restrict any use of the information to criminally investigate or prosecute any alcohol or drug abuse patient.[facility] HospitalIn the event this information is protected by the Federal Confidentiality of Alcohol and Drug Abuse Patient Records regulations: The Federal rules restrict any use of the information to criminally investigate or prosecute any alcohol or drug abuse patient.[facility] HospitalIn the event this information is protected by the Federal Confidentiality of Alcohol and Drug Abuse Patient Records regulations: The Federal rules restrict any use of the information to criminally investigate or prosecute any alcohol or drug abuse patient.[facility] HospitalIn the event this information is protected by the Federal Confidentiality of Alcohol and Drug Abuse Patient Records regulations: The Federal rules restrict any use of the information to criminally investigate or prosecute any alcohol or drug abuse patient.[facility] HospitalIn the event this information is protected by the Federal Confidentiality of Alcohol and Drug Abuse Patient Records regulations: The Federal rules restrict any use of the information to criminally investigate or prosecute any alcohol or drug abuse patient.[facility] HospitalIn the event this information is protected by the Federal Confidentiality of Alcohol and Drug Abuse Patient Records regulations: The Federal rules restrict any use of the information to criminally investigate or prosecute any alcohol or drug abuse patient.[facility] HospitalIn the event this information is protected by the Federal Confidentiality of Alcohol and Drug Abuse Patient Records regulations: The Federal rules restrict any use of the information to criminally investigate or prosecute any alcohol or drug abuse patient.[facility] Care Teams (unrecognized sec tion and [...] 2023 End: June 23, 2023 Team Status: Inactive Member Role Status Dates Campbell Naranjo DO Primary Care Provider Active Low Carter , Emergency Provider Active Credit Underwriter Relationship Specialty Start Date End Date Ran Houston Jr. PCP - General 10/10/09 Credit Underwriter Relationship Specialty Start Date End Date Ran Houston Jr. PCP - General 10/10/09 Credit Underwriter Relationship Specialty Start Date End Date Ran Houston Jr. PCP - General 10/10/09 Credit Underwriter Relationship Specialty Start Date End Date Campbell Naranjo, DO [address] [facility] [place] [address] PCP - General Internal Medicine 11/26/21 Credit Underwriter Relationship Specialty Start Date End Date Campbell Nraanjo, DO [address] [facility] [place] [address] PCP - General Internal Medicine 11/26/21 Credit Underwriter Relationship Specialty Start Date End Date Campbell Naranjo, DO [address] [facility] [place] [address] PCP - General Internal Medicine 11/26/21 Credit Underwriter Relationship Specialty Start Date End Date Campbell Naranjo, DO [address] [facility] [place] [address] PCP - General Internal Medicine 11/26/21 Team Status: Inactive Member Role Status Dates Campbell Naranjo DO Primary Care Provider Active Davis Cervantes MD Emergency Provider Active Credit Underwriter Relationship Specialty Start Date End Date Campbell Naranjo, DO [address] [facility] [place] [address] PCP - General Internal Medicine 11/26/21 Team Status: Inactive Member Role Status Dates Campbell Naranjo , Primary Care Provider Active Sam Simons , Emergency Provider Active Team Status: Inactive Member Role Status Dates Campbell Naranjo , DO Primary Care Provider Active Sam Simons , DO Attending Provider Active Credit Underwriter Relationship Specialty Start Date End Date Campbell Naranjo, DO [address] [facility] [place] [address] PCP - General Internal Medicine 11/26/21 Credit Underwriter Relationship Specialty Start Date End Date Campbell Naranjo, DO [address] [place] [address] PCP - General Internal Medicine 11/26/21 Credit Underwriter Relationship Specialty Start Date End Date Campbell Naranjo, DO [address] [place] [address] PCP - General Internal Medicine 11/26/21 Team Status: Active Member Role Status Dates Campbell Naranjo Primary Care Provide r, Attending Provider Active Start: July 06, 2023 Team Status: Inactive Member Role Status Dates Campbell Quentin DO Primary Care Provide r, Attending Provider Active Start: July 09, 2023 End: July 09, 2023 Reason for Visit (unrecogniz ed section [...] InformationGoals may be documented in an alternate sectionGoals may be documented in an alternate section [...] BE BASED ON THE PRIMARY CLINICAL RECORDS. [facility]. provides no warranty or guarantee of the accuracy or completeness of information in this document.
[2023-07-12 08:51] VITALS: BMI 27.5
[2023-07-12] MEDS: LACTATED RINGER'S SOLUTION 1,000 ML 50 ML IV (09:00)
[2023-07-12] MEDS: CEFAZOLIN SODIUM/DEXTROSE,ISO 2 GM/50 ML PIGGYBACK IV (09:27)
--- NOTE | 2023-07-12 09:47 | XR_ITS ---
The [address] [address] Patient Name: EMILY WASHINGTON MRN: [id number] date: 1940 Sex: M Assigned Patient Location: [facility] Current Patient Location: Accession/Order Number: [id number] Exam Date: 07/12/2023 11:13 Report Date: 07/13/2023 07:29 At the request of: SABINE MUNSON Procedure: XR foot SIMONE min 3V PROCEDURE: XR foot right min 3V COMPARISON: None. HISTORY: 5th hammertoe, osteomyelitis 4th toe FINDINGS: BONES:Interval amputation tip of the fourth toe at the distal interphalangeal joint. Stable lytic change noted along the head of the fifth proximal phalanx. Moderate degenerative changes with joint space narrowing. Enthesopathic spurring plantar calcaneus corticated bone fragment lateral to the cuboid, stable SOFT TISSUES:Mild forefoot soft tissue swelling. Vascular calcifications EFFUSION:None visible. OTHER: Negative. XR/XR foot SIMONE min 3V IMPRESSION: Interval amputation of the fourth toe at the distal interphalangeal joint Electronically authenticated by: SAMY TORRES Date: 07/13/2023 07:29
--- NOTE | 2023-07-12 09:50 | P.ORON_ITS ---
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 He is also had recurrent wounds over his 5th toes which are currently healed. Due to her inability to get his 4th toe ulcerations to heal and there is concern for osteomyelitis we discussed risks and benefits of surgical intervention the patient wished to undergo the above procedures. In addition due to the recurrent callus and wounds is 5th toe which she relates rubs an issue he would like his 5th toes corrected as well. INTRAOPERATIVE FINDINGS: mallet toe deformity of bilateral 4th toes with full thickness ulceration which probed to bone bilateral 4th toe distal phalanx. No acute signs of infection. 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 PROCEDURE IN DETAIL: Patient was identified in pre op and consent was reviewed. Correct side and site were identified and marked. Pre-op antibiotics were started. Patient was brought to OR suite and place on table in a supine position. General anesthesia was administered. Tourniquet applied. Operative extremity was prepped and draped in usual sterile fashion. Formal time-out was performed and the foot/ankle were exsanguinated and tourniquet inflated. A fishmouth incision was placed on the right 4th toe. Full-thickness incision was taken down to bone to the level of the distal interphalangeal joint and all soft tissue attachments were released allowing disarticulation of the digit. The amputated digit was passed back table and sent for specimen. Tendinous structures were cut proximally. Surgical site was irrigated with normal saline and inspected for any nonviable tissue which was removed. incision was closed in a single layer using nonabsorbable skin suture With attention to the right 5th digit a semi-elliptical dorsal incision was created over the PIPJ. Sharp and blunt dissection down to the extensor tendon was performed. The tendon was incised transversely then reflected proximally. A sagittal saw was used to remove the proximal phalanx head. The site was flushed with sterile saline. The tendon was repaired with absorbable suture. skin was then closed in layers. the tourniquet on the right was then deflated with a prompt hyperemic response. A fishmouth incision was placed on the left 4th toe. Full-thickness incision was taken down to bone to the level of the distal interphalangeal joint and all soft tissue attachments were released allowing disarticulation of the digit. The amputated digit was passed back table and sent for specimen. Tendinous structures were cut proximally. Surgical site was irrigated with normal saline and inspected for any nonviable tissue which was removed. Incision was then closed in one layer with nonabsorbable suture. With attention to the left 5th digit a semi-elliptical dorsal incision was created over the PIPJ. Sharp and blunt dissection down to the extensor tendon was performed. The tendon was incised transversely then reflected proximally. A sagittal saw was used to remove the proximal phalanx head. The site was flushed with sterile saline. The tendon was repaired with absorbable suture. skin was then closed in layers and the tourniquet on the left was droopped with a prompt hyperemic response. dry sterile dressing consisting of Xeroform 4 x 4's Kerlix and Serafin wraps were applied to bilateral feet and surgical shoes will be applied in the recovery room POSTOPERATIVE PLAN: Discharge home under family's care Post op instructions provided verbally and written prescription(s) were placed in chart weightbearing as tolerated in surgical shoes Dressings are to be changed every day to every other day and home health care will be arranged Follow-up in 1 week Implants: none Anesthesia: JORGE Surgeon: Jhon Tejada Estimated blood loss (mL): 20 Pathology: other (4th toe amputations) Condition: stable Disposition: PACU
[2023-07-12] MEDS: LIDOCAINE HCL 1% 100 MG/10 ML MDV 20 ML INJ (10:07)
[2023-07-12] MEDS: BUPIVACAINE HCL 0.5% PF 50 MG/10 ML VIAL 20 ML INJ (10:31)
[2023-07-12 11:02] VITALS: BP 111/68; PULSE 75; TEMP 36.4; O2SAT 99
[2023-07-12 11:11] LABS: Glucometer 111 mg/dL (74-106)
[2023-07-12 11:17] VITALS: BP 114/72; PULSE 69; O2SAT 98
[2023-07-12 11:32] VITALS: BP 120/74; PULSE 75; O2SAT 98
== END 2023-07-12 11:52 | disposition home or self-care (01) ==
PROVIDERS: PCP Internal Medicine; Visit Provider Podiatrist Foot & Ankle Surgery
PROC: (CPT 28285; principal; 2023-07-12 09:30)
DX: E11.621 Type 2 diabetes mellitus with foot ulcer (principal); L97.518 Non-pressure chronic ulcer of other part of right foot with other specified severity; E11.69 Type 2 diabetes mellitus with other specified complication; M86.671 Other chronic osteomyelitis, right ankle and foot; D64.9 Anemia, unspecified; E11.22 Type 2 diabetes mellitus with diabetic chronic kidney disease; N18.9 Chronic kidney disease, unspecified; M20.42 Other hammer toe(s) (acquired), left foot; M20.41 Other hammer toe(s) (acquired), right foot; E03.9 Hypothyroidism, unspecified; D50.9 Iron deficiency anemia, unspecified; E11.42 Type 2 diabetes mellitus with diabetic polyneuropathy; L97.521 Non-pressure chronic ulcer of other part of left foot limited to breakdown of skin; E78.5 Hyperlipidemia, unspecified; I12.9 Hypertensive chronic kidney disease with stage 1 through stage 4 chronic kidney disease, or unspecified chronic kidney disease; N40.0 Benign prostatic hyperplasia without lower urinary tract symptoms; Z90.49 Acquired absence of other specified parts of digestive tract; Z79.84 Long term (current) use of oral hypoglycemic drugs; Z79.899 Other long term (current) drug therapy; Z79.82 Long term (current) use of aspirin
CPT/HCPCS: 28285 ×2; 28825 ×2; 36415; 73630; 82948; 88304; 88311; J2704

== ENCOUNTER 2023-07-16 12:06 | Outpatient (OUT) | payer MEDICARE, SELFPAY ==
--- OUTSIDE RECORDS SUMMARY | 2023-07-16 12:17 | XMS_ITS | CCD ---
Author Organization [facility] Care Team Providers Care National Sales Representative Name Role Phone Rosemarie Connolly, Ran Latham Primary Care Provider Unava ilable RAN HOUSTON JR Primary Care Unavailable KEELY GUTIERREZ Attending [...] Care Provider TuDO Low dixon Emergency Provider [phone] Campbell Naranjo DO Primary Care Provider LETICIA MILIAN Attending Unavailable CAMPBELL NARANJO Primary Care Unavailable LETICIA MILIAN Referring Unavailable CAMPBELL NARANJO Primary Care Unavailable LETICIA MILIAN Attending Unavailable LETICIA MILIAN Referring Unavailable CAMPBELL NARANJO Primary Care Unavailable LETICIA MILIAN Referring Unavailable CAMPBELL NARANJO Primary Care Unavailable DO Campbell Naranjo Primary Care Provider DO Low Carter Emergency Provider [phone] CHRISTIAN Tejada Attending Provider Low Carter Admitting Unavailable Low Carter Attending Unavailable Campbell Naranjo Primary Care Unavailable Jhon Tejada Admitting Unavailable Jhon Tejada Attending Unavailable Campbell Naranjo Primary Care Unavailable Low Carter Admitting Unavailable Low Carter Attending Unavailable Campbell Naranjo Primary Care Unavailable Allergies Allergy Classification Reported Allergen(s) Allergy Type Date of Onset Reaction(s) Facility (20 sources) Ciprofloxacin; Translations: [CIPROFLOXACIN] Drug Allergy 08-01-19 10 GI Upset, [facility] (20 sources) Sulfonamides (Antibiotic); Translations: [SULFA (SULFONAMIDE ANTIBIOTICS)] Propensity to adverse reactions 08-01-19 10 Rash, [facility] (1 source) Ciprofloxacin Drug Allergy [facility] (1 source) Sulfonamides (Antibiotic) Drug allergy (disorder) [facility] (1 source) Allergies Reconciled Propensity to adverse reactions Unknown [facility] Other (1 source) patient allergy list reviewed by nurse or physicia Propensity to adverse reactions 05-20-19 Comment:Done [facility] Other (1 source) Ciprofloxacin Drug Allergy 07-09-19 [facility] Repository (1 source) Sulfonamides (Antibiotic) Drug allergy (disorder) 07-09-19 [facility] Repository Medications Current Medications Medication Drug Class(es) Dates Sig (Normalized) Sig (Original) amLODIPine 5 mg oral tablet (20 sources) Dihydropyridine Calcium Channel Radha Start: 05-31-2023 take 1 tablet by mouth once daily Amlodipine Active 0 .ROUTE .COMPLEX May 31, 2023 5:07pm TAKE 1 TABLET [...] 2021 12:00am cephalexin 500 mg oral capsule (19 sources) Cephalosporin Antibacterial Start: 01-23-2022 End: 01-23-2022 cephALEXin 500 mg cap(s) (KEFLEX) Start: 12-11-2021 End: 12-17-2021 take 500 mg by mouth every eight hours Cephalexin Discontinued 500 MG PO Q8H 02 10December 11, 2021 12:00am December 17, 2021 5:10pm [...] daily. Take 1 capsule by mo [facility] three times daily for 3 days. [...] once daily. glucosamine 500 mg oral tablet (15 sources) Start: 05-21-2023 take 500 mg by [...] d aily. methylsulfonylmethane 1000 mg oral tablet (3 sources) Start: 2023 take 1 capsule by mouth twice daily Methylsulfonylmethane (Msm) 1,000 mg capsule Active 1000 MG PO Twice daily May 21, 2023 1:00am MSM 1500 MG (19 sources) MSM 1500 MG as d irected Orally Active Multi For Him - (4 sources) Multi For Him - as directed Orally Active Multivitamin (Daily Multi-Vitamin) tablet (3 sources) Start: 05-21-19 take 1 tablet by mouth once daily Multivitamin (Daily Multi-Vitamin) tablet Active 1 TAB PO Daily May 21, 2023 1:00am nitrofurantoin, macrocrystals 50 mg oral capsule (1 source) Nitrofuran Antibacterial Start: 11-13-19 End: 09-10-20 22 take 1 capsule by mouth twice daily nitrofurantoin macrocrystal (MACRODANTIN) 50 mg capsule Indications: BPH with obstruction/lower urinary tract symptoms , Benign prostatic hyperplasia with urinary retention 1 capsule by ORAL/FEEDING TUBE route twice daily for 10 days. 20 capsule 0 11/12/2021 11/22/2021 Active Comment on above: 1 capsule by ORAL/FE EDING TUBE route twice daily for 10 days. Turmeric Root-Yulisa Root Ext (3 sources) Start: 05-21-19 Turmeric Root-Yulisa Root Ext [...] mg / clavulanate 125 mg oral tablet (9 sources) Penicillin-class Antibacterial Start: 05-15-2023 End: 05-21-2023 [...] on above: Take 1 capsule by [facility] once daily. Take one cap. daily trimethoprim 100 mg oral tablet (8 sources) Dihydrofolate Reductase Inhibitor Antibacterial Start: End: take 100 mg by mouth twice daily Trimethoprim Discontinued 100 MG PO Twice daily December 17, 2021 12:00am May 21, 2023 12:03pm Comment on above: Take 1 tablet by [facility] twice daily for 5 days. Problems Active [...] depolarization] Onset: 06-23-2016 Chronic Chronic kidney disease (9 sources) Chronic kidney disease stage 3; Translations: [Chronic kidney disease, stage 3 unspecified] Onset: 08-23-2014 06-20-2023 Chronic Chronic ulcer of skin (14 sources) Ulcer of foot; Translations: [Non-pressure chronic ulcer of other part of unspecified foot with unspecified severity] Onset: 10-02-2009 10-02-2009 Chronic Complication of device; implant or graft (7 sources) Disorder of urethral catheter; Translations: [Breakdown [...] caused by tuberculosis or sexually transmitted disease) (3 sources) Osteomyelitis of right foot; Translations: [Osteomyelitis, unspecified] [...] sources) H/O: high risk medication; Translations: [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 rat 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 (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) drug therapy] Episodic Other aftercare (1 source) Long-term current use of drug therapy; Translations: [Other rat 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 (current) drug therapy] Episodic Other circulatory disease [...] Episodic Other diseases of veins and lymphatics (3 sources) Venous insufficiency of leg; Translations: [Venous insufficiency (chronic) (peripheral)] 05-20-2023 Episodic Other diseases of veins and lymphatics (3 sources) Stasis dermatitis; Translations: [Venous insufficiency (chronic) (peripheral)] 05-21-2023 Episodic Other diseases of veins and lymphatics (7 sources) Venous insufficiency (chronic) (peripheral); Translations: [Venous [...] Chronic Other nutritional; endocrine; and metabolic disorders (3 sources) Overweight; Translations: [Overweight] Episodic Other nutritional; endocrine; and metabolic disorders (3 sources) Overweight; Translations: [Overweight] Onset: 10-20-2021 06-23-2023 Episodic Other skin disorders (5 sources) Actinic keratosis; Translations: [Actinic keratosis] Episodic Other skin disorders (1 source) Callosity; Translations: [Corns and callosities] Episodic Other skin disorders (2 sources) Corns and callosities Episodic Retinal detachments; defects; vascular occlusion; and retinopathy (1 source) Serous retinal detachment; Translations: [Serous retinal detachment, unspecified eye] Episodic Skin and subcutaneous tissue infections (9 sources) Cellulitis of toe of left foot; [...] Episodic Other aftercare (1 source) Other intermediate (current) drug therapy; Translations: [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] Onset: 10-22-2021 Episodic Other [...] Test Name Value Interpretation Reference Range Facility [facility] 07-12-2023 L Specimen: [id number] Received: 07/12/23 Status: MARY Najera Num: [id number] Spec Type: Surgical Subm Dr: Jhon Tejada DPM, MS Tissues: A DIGIT AMPUTATION (LT FOURTH TOE) B DIGIT AMPUTATION (RT FOURTH TOE) Procedures: HE/4, Gross/Micro L4/2, Decalcification/2 Age/ Patient Sex Location Account Attending Physician [place]to 83/M LABELL [id number] Jhon Tejada DPM, MS SPEC NUM: [id number] RECD: 07/12/23 STATUS: MARY NAJERA NUM: [id number] CAITY: 07/12/[address]: Jhon Tejada DPM, MS ENTERED: 07/12/[address]: Anderson,Lab SPEC TYPE: Surgical DEPT: GILBERTO ABEBE ORDERED: HE/4, Gross/Micro L4/2, Decalcification/2 ORDERED: HE/4, Gross/Micro L4/2, Decalcification/2 Pathological Diagnosis A, left fourth toe, distal amputation: -Chronic nonhealing wound with mild granulation tissue proliferation around the toe bone which is also accompanied with mild serous degeneration in the medullary cavity without obvious acute inflammation or osteomyelitis B, right fourth toe, distal amputation: -Chronic nonhealing open wound with associated fibrin exudation and superficial infection at the ulcerated surface, and with moderate chronic fracture of the underneath toe bone with minor suggested chronic osteomyelitis Gross Description A. Received in formalin, labeled with the patient's name, date of and left fourth toe is a 1.7 x 1.6 x 1.1 cm most distal portion of the fourth digit. A thickened estrada- yellow nail is present. There is a 1.1 x 0.7 cm ulcerated lesion present that comes to within 0.2 cm of the skin and soft tissue margin. Sectioning demonstrates a slightly softened yellow spongy bone matrix with unremarkable estrada-yellow soft tissue. A full- thickness cross-section to include the lesion, underlying soft tissue/ bone and most proximal aspect (inked black) is submitted in A1 following decalcification. B. Received in formalin, labeled with the patient's name, date of and right fourth toe is a 2.0 x 1.5 x 1.2 cm most distal portion of the fourth digit. The skin surface is -------- Specimen: [id number] Received: 07/12/23 Status: MARY Najera Num: [id number] Spec Type: Surgical Subm Dr: Jhon Tejada,CHRISTIAN, MS Tissues: A DIGIT AMPUTATION (LT FOURTH TOE) B DIGIT AMPUTATION (RT FOURTH TOE) Procedures: HE/4, Gross/Micro L4/2, Decalcification/2 -------- Patient: Norberto Washington [id number] (Continued) -------- Specimen: [id number] Received: 07/12/23 (Continued) Gross Description (Continued) Signed (signature on file) Yisel Kaminski MD 07/13/231921 -------- Specimen: [id number] Received: 07/12/23 Status: MARY Najera Num: [id number] Spec Type: Surgical Subm Dr: Jhon Tejada,CHRISTIAN, MS Tissues: A DIGIT AMPUTATION (LT FOURTH TOE) B DIGIT AMPUTATION (RT FOURTH TOE) Procedures: HE/4, Gross/Micro L4/2, Decalcification/2 -------- Patient: Norberto Washington [id number] (Continued) -------- Specimen: [id number] Received: 07/12/23 (Continued) Gross Description (Continued) 90% covered by a 2.0 x 1.6 cm estrada-yellow to pink ulcerated lesion which comes to within 0.2 cm of the nearest skin margin. Sectioning demonstrates slightly softened yellow spongy bone matrix with unremarkable estrada-yellow soft tissue. A full-thickness cross-section to include the lesion, underlying soft tissue/bone and most proximal aspect (inked green) is submitted in B1 following decalcification. Clinical history: Nonpressure chronic ulcer left foot, osteomyelitis right foot TW CPT Codes 89867 X2 77450 X2 -------- -------- Specimen: [id number] Received: 07/12/23 Status: MARY Dania Num: [id number] Spec Type: Surgical Subm Dr: Jhon Tejada,CHRISTIAN, MS Tissues: A DIGIT AMPUTATION (LT FOURTH TOE) B DIGIT AMPUTATION (RT FOURTH TOE) Procedures: HE/4, Gross/Micro L4/2, Decalcification/2 -------- Patient: Norberto Washington [id number] (Continued) -------- Signed (signature on f (more content not included)... Normal [facility] Basophils Auto (Bld) [#/Vol] on 07-06-2023 Basophils (Bld) [#/Vol] 0.0 10 3/uL 0.0-0.1 [facility] Basophils/100 WBC Auto (Bld) on 07-06-2023 Basophils/100 WBC (Bld) 0.4 % 0.2-2.0 [facility] Eosinophils/100 WBC Auto (Bl d)on 07-06-2023 Eosinophils/100 WBC (Bld) 2.3 % 0.9-7.0 [facility] Erythrocyte distribution wid th Auto (RBC) [Ratio]on 07-06-2023 Erythrocyte distribution width (RBC) [Ratio] 12.4 % 11.0-15.0 [facility] Estimated glomerular filtrat ion rate (GFR) non- Americanon 07-06-2023 GFR/1.73 sq M.predicted among non-blacks MDRD (S/P/Bld) [Vol rate/Area] 59 mL/min/{1.73_m2} >=60 [facility] Hematocrit Auto (Bld) [Volum e fraction]on 07-06-2023 Hematocrit (Bld) [Volume fraction] 37.5 % 42.0-54.0 [facility] Hemoglobin [Mass/volume] in Bloodon 07-06-2023 Hemoglobin (Bld) [Mass/Vol] 12.5 g/dL 14.0-18.0 [facility] Laboratory - Chemistry and C hemistry - challengeon 07-06-2023 Calcium [Mass/Vol] 9.0 mg/dL 8.5-10.1 [facility] Chloride [Moles/Vol] 98 mmol/L 98-107 [facility] CO2 [Moles/Vol] 27.6 mmol/L 21.0-32.0 [facility] Creatinine [Mass/Vol] 1.17 mg/dL 0.70-1.30 [facility] GFR/1.73 sq M.predicted MDRD (S/P/Bld) [Vol rate/Area] mL/min/{1.73_m2} >=60 [facility] Glucose [Mass/Vol] 109 mg/dL 74-106 [facility] Potassium [Moles/Vol] 5.1 mmol/L 3.5-5.1 [facility] Sodium [Moles/Vol] 134 mmol/L 136-145 [facility] Urea nitrogen [Mass/Vol] 23.0 mg/dL 7.0-18.0 [facility] Urea nitrogen/Creatinine [Mass ratio] 19.7 mg/mg [facility] Laboratory - Hematology and Cell countson 07-06-2023 Immature granulocytes/100 WBC (Bld) 0.4 % 0.0-0.5 [facility] Leukocytes [#/volume] correc marshal for nucleated erythrocytes in Blood by Automated counon 07-06-2023 WBC corrected for nucl RBC Auto (Bld) [#/Vol] 8.0 10 3/uL 4.0-11.0 [facility] Lymphocytes Auto (Bld) [#/Vo l]on 07-06-2023 Lymphocytes (Bld) [#/Vol] 1.8 10 3/uL 1.2-3.8 [facility] Lymphocytes/100 WBC Auto (Bl d)on 07-06-2023 Lymphocytes/100 WBC (Bld) 22.3 % 20.5-60.0 [facility] MCH Auto (RBC) [Entitic mass ]on 07-06-2023 MCH (RBC) [Entitic mass] 30.7 pg 25.9-34.0 [facility] MCHC Auto (RBC) [Mass/Vol]on 07-06-2023 MCHC (RBC) [Mass/Vol] 33.3 g/dL 29.9-35.2 [facility] MCV Auto (RBC) [Entitic vol] on 07-06-2023 MCV (RBC) [Entitic vol] 92.1 fL 80.0-94.0 [facility] Monocytes Auto (Bld) [#/Vol] on 07-06-2023 Monocytes (Bld) [#/Vol] 1.2 10 3/uL 0.3-0.8 [facility] Monocytes/100 WBC Auto (Bld) on 07-06-2023 Monocytes/100 WBC (Bld) 15.0 % 1.7-12.0 [facility] Neutrophils Auto (Bld) [#/Vo l]on 07-06-2023 Neutrophils (Bld) [#/Vol] 4.8 10 3/uL 1.4-6.5 [facility] Neutrophils/100 WBC Auto (Bl d)on 07-06-2023 Neutrophils/100 WBC (Bld) 59.6 % 43.0-75.0 [facility] No Panel Informationon 07-05 Eosinophils # (Auto) 0.2 10 3/uL 0.0-0.7 [facility] Immature Granulocyte # (Auto) 0.03 10 3/uL 0.00-0.03 [facility] Platelet mean volume Auto (B ld) [Entitic vol]on 07-06-2023 Platelet mean volume (Bld) [Entitic vol] 8.9 fL 9.5-13.5 [facility] Platelets Auto (Bld) [#/Vol] on 07-06-2023 Platelets (Bld) [#/Vol] 242 10 3/uL 150-450 [facility] RBC Auto (Bld) [#/Vol]on RBC (Bld) [#/Vol] 4.07 10 6/uL 4.70-6.10 [facility] Serum or plasma anion gap de terminationon 07-06-2023 Anion gap [Moles/Vol] 13.5 mmol/L [facility] US venous duplex LE RTon US venous duplex LE RT [facility] [place] [address] Ultrasound Report Signed Patient: Norberto Washington MR#: [id number] : 1940 Acct:[id number] Age/Sex: 83 / M ADM Date: 05/15/23 Loc: ER Room: Type: [facility] ER Attending Dr: Ordering Provider: [...] Gus Wren MD05/16/2023 11:15 AM Dictation Location: [place] [address] Tech: Helen Gama Transcribed By: PAUL 05/16/23 1115 Dictated By: Gus Wren MD 05/16/23 111 Signed By: 05/16/23 1115 Normal [facility] Estimated glomerular filtrat ion rate (GFR) non- Americanon 05-03-2023 GFR/1.73 sq M.predicted among non-blacks MDRD (S/P/Bld) [Vol rate/Area] mL/min/{1.73_m2} >=60 [facility] Laboratory - Chemistry and C hemistry - challengeon 05-03-2023 Calcium [Mass/Vol] 8.5 mg/dL 8.5-10.1 [facility] Chloride [Moles/Vol] 100 mmol/L 98-107 [facility] CO2 [Moles/Vol] 27.6 mmol/L 21.0-32.0 [facility] Creatinine [Mass/Vol] 1.06 mg/dL 0.70-1.30 [facility] GFR/1.73 sq M.predicted MDRD (S/P/Bld) [Vol rate/Area] mL/min/{1.73_m2} >=60 [facility] Glucose [Mass/Vol] 135 mg/dL 74-106 [facility] Potassium [Moles/Vol] 4.1 mmol/L 3.5-5.1 [facility] Sodium [Moles/Vol] 136 mmol/L 136-145 [facility] Urea nitrogen [Mass/Vol] 19.0 mg/dL 7.0-18.0 [facility] Urea nitrogen/Creatinine [Mass ratio] 17.9 mg/mg [facility] No Panel Informationon 05-03 C-Reactive Protein, Quantitative <0.50 mg/dL <=0.50 [facility] Serum or plasma anion gap de terminationon 05-03-2023 Anion gap [Moles/Vol] 12.5 mmol/L [facility] Estimated glomerular filtrat ion rate (GFR) non- Americanon 04-30-2023 GFR/1.73 sq M.predicted among non-blacks MDRD (S/P/Bld) [Vol rate/Area] mL/min/{1.73_m2} >=60 [facility] Laboratory - Chemistry and C hemistry - challengeon 04-30-2023 Calcium [Mass/Vol] 8.7 mg/dL 8.5-10.1 [facility] Chloride [Moles/Vol] 101 mmol/L 98-107 [facility] CO2 [Moles/Vol] 29.2 mmol/L 21.0-32.0 [facility] Creatinine [Mass/Vol] 1.06 mg/dL 0.70-1.30 [facility] GFR/1.73 sq M.predicted MDRD (S/P/Bld) [Vol rate/Area] mL/min/{1.73_m2} >=60 [facility] Glucose [Mass/Vol] 93 mg/dL 74-106 [facility] Potassium [Moles/Vol] 4.6 mmol/L 3.5-5.1 [facility] Sodium [Moles/Vol] 136 mmol/L 136-145 [facility] Urea nitrogen [Mass/Vol] 20.0 mg/dL 7.0-18.0 [facility] Urea nitrogen/Creatinine [Mass ratio] 18.9 mg/mg [facility] No Panel Informationon 04-30 C-Reactive Protein, Quantitative 0.50 mg/dL <=0.50 [facility] Vancomycin Level Trough 11.0 ug/mL 5.0-20.0 [facility] Serum or plasma anion gap de terminationon 04-30-2023 Anion gap [Moles/Vol] 10.4 mmol/L [facility] CNOVon 02-02-2023 CNOV Office Visit (UROLLN ) NORBERTO WASHINGTON ([id number]) 1940 M Date Time Provider Department 02/02/23 1:30 PM LETICIA MILIAN UROLLN During your visit today, we recorded the following information about you: Pulse Blood pressure Weight 65/minute 146/70 102.1 kg Leticia Milian, RUSSET REPAIRER.[facility] 02/02/2023 2:13 PM Signed Norberto Washington [address] [facility] [address] HISTORY OF PRESENT ILLNESS: Seen 07/28/22 for [...] see lab Duration: BPH w obs/luts, UTI [employer] SYMPTOMS SCORE. 1. INCOMPLETE EMPTYING [...] Stream (imp (more content not included)... Normal [facility] Bacteria Ur Culton 3 Bacteria identified Cx Nom (U) CULTURE, URINE: No growth (<1,000 CFU/ml) Normal [facility] Comment on above: Performed By: #### 6 30-4 #### [facility] CLIA [id number] [address] [place] [id number] [facility] CNOVon 07-28-2022 CNOV Office Visit (UROLLN ) NORBERTO WASHINGTON ([id number]) 1940 M Date Time Provider Department 07/28/22 1:30 PM LETICIA MILIAN During your visit today, we recorded the following information about you: Pulse Blood pressure Weight 68/minute 142/55 100.7 kg Leticia Milian APRN.RESEARCH PHLEBOTOMIST 07/30/2022 4:34 PM Addendum Norberto Washington [address] [facility] [address] HISTORY OF PRESENT ILLNESS: Seen 01/20/22 for [...] 07/20/22=neg UA 07/20/22=leuk esterase 250, wbc 11-25 [employer] SYMPTOMS SCORE. 1. INCOMPLETE EMPTYING [...] -DM UTI (more content not included)... Normal [facility] Bacteria Ur Culton 3 Bacteria identified Cx Nom (U) CULTURE, URINE: No growth (<1,000 CFU/ml) Normal [facility] Comment on above: Performed By: #### 6 30-4 #### [facility] CLIA [id number] [address] [place] [address] [place] Urinalysis complete panel (U )on 07-20-2022 Bilirubin Ql (U) Negative Normal Negative [facility] Comment on above: Order Comment: Speci men Type: URINE SPECIMEN Ordering Facility: [facility] Address: [address] [place] [address] Performed By: #### 2 4356-8 #### [facility] CLIA [id number] [address] [place] [address] [place] Clarity (Unsp spec) Clear Normal Clear [facility] Comment on above: Order Comment: Speci men Type: URINE SPECIMEN Ordering Facility: [facility] Address: [address] [place] [address] Performed By: #### 2 4356-8 #### [facility] CLIA [id number] [address] [place] [address] [place] Color (U) Yellow Normal Yellow [facility] Comment on above: Order Comment: Speci men Type: URINE SPECIMEN Ordering Facility: [facility] Address: [address] [place] [address] Performed By: #### 2 4356-8 #### [facility] CLIA [id number] [address] [place] [address] [place] Epithelial cells LM.HPF (Urine sed) [#/Area] Few Normal [facility] Comment on above: Order Comment: Speci men Type: URINE SPECIMEN Ordering Facility: [facility] Address: [address] [place] [address] Performed By: #### 2 4356-8 #### [facility] CLIA [id number] [facility] [place] [address] [place] Glucose Test strip (U) [Mass/Vol] Negative Normal Trace, Negative [facility] Comment on above: Order Comment: Speci men Type: URINE SPECIMEN Ordering Facility: [facility] Address: [address] Performed By: #### 2 4356-8 #### [facility] CLIA [id number] [address] [place] [address] [place] Hemoglobin Ql (U) Negative Normal Negative, Trace [facility] Comment on above: Order Comment: Speci men Type: URINE SPECIMEN Ordering Facility: [facility] Address: [address] [place] [address] Performed By: #### 2 4356-8 #### [facility] CLIA [id number] [address] [place] [address] [place] Ketones Ql (U) Negative Normal Trace, Negative [facility] Comment on above: Order Comment: Speci men Type: URINE SPECIMEN Ordering Facility: [facility] Address: [address] Performed By: #### 2 4356-8 #### [facility] CLIA [id number] [address] [place] [address] [place] Leukocyte esterase Test strip Ql (U) 250 Ayaz/uL Abnormal Negative, 25 Ayaz/uL [facility] Comment on above: Order Comment: Speci men Type: URINE SPECIMEN Ordering Facility: [facility] Address: [address] Performed By: #### 2 4356-8 #### [facility] CLIA [id number] [address] [place] [address] [place] Nitrite Ql (U) Negative Normal Negative [facility] Comment on above: Order Comment: Speci men Type: URINE SPECIMEN Ordering Facility: [facility] Address: [address] Performed By: #### 2 4356-8 #### [facility] CLIA [id number] [address] [place] [address] [place] pH (U) 5.5 [pH] Normal 5.0-8.0 [facility] [facility] Comment on above: Order Comment: Speci men Type: URINE SPECIMEN Ordering Facility: [facility] Address: [address] [place] [address] Performed By: #### 2 4356-8 #### [facility] CLIA [id number] [address] [place] [address] [place] Protein (U) [Mass/Vol] Negative Normal Trace , Negative [facility] Comment on above: Order Comment: Speci men Type: URINE SPECIMEN Ordering Facility: [facility] Address: [address] [place] [address] Performed By: #### 2 4356-8 #### [facility] CLIA [id number] [address] [place] [address] [place] RBC LM.HPF (Urine sed) [#/Area] 0-3 /HPF Normal 0-3 /HPF [facility] Comment on above: Order Comment: Speci men Type: URINE SPECIMEN Ordering Facility: [facility] Address: [address] [place] [address] Performed By: #### 2 4356-8 #### [facility] CLIA [id number] [address] [place] [address] [place] Specific gravity (U) [Rel density] 1.016 Normal 1.005-1.030 [facility] Comment on above: Order Comment: Speci men Type: URINE SPECIMEN Ordering Facility: [facility] Address: [address] [place] [address] Performed By: #### 2 4356-8 #### [facility] CLIA [id number] [address] [place] [address] [place] Urobilinogen Ql (U) Negative Normal Negative [facility] Comment on above: Order Comment: Speci men Type: URINE SPECIMEN Ordering Facility: [facility] Address: [address] [address] Performed By: #### 2 4356-8 #### [facility] CLIA [id number] [address] [place] [address] [place] WBC LM.HPF (Urine sed) [#/Area] 11-25 /HPF Abnormal 0-5 /HPF [facility] Comment on above: Order Comment: Speci men Type: URINE SPECIMEN Ordering Facility: [facility] Address: [address] [place] [address] Performed By: #### 2 4356-8 #### [facility] CLIA [id number] [address] [place] [address] [place] GLYCOHEMOGLOBIN A1Con 2022 ADA RECOMMENDATION SEE BELOW Normal [facility] Comment on above: Result Comment: ADA RECOMMENDED LIMIT 4.0 - 6.0 ADA THERAPEUTIC TARGET < 7.0 ACTION SUGGESTED > 7.0 Performed By: #### A 1C #### [facility] [address] [address] [address] Juan Pablo Kaminski Glucose [Mass/Vol] 128 mg/dL Normal [facility] Comment on above: Performed By: #### A 1C #### [facility] [address] [address] [address] Juan Pablo Kaminski HbA1c (Bld) [Mass fraction] 6.1 % Normal 4.5-6.2 [facility] Comment on above: Performed By: #### A 1C #### [facility] [address] [address] [address] Juan Pablo Kaminski A1C with Estimated Average G luon 03-20-2022 A1C with Estimated Average Glu 128 [facility] Other A1C with Estimated Average Glu [facility] Other HbA1c (Bld) [Mass fraction] 6.1 % Normal 4.5-6.2 [facility] Other Comment on above: Performed By: #### A 1C #### [facility] [address] [place], [place] [address] Dr. Juan Pablo Kaminski GLYCOHEMOGLOBIN A1Con 2022 ADA RECOMMENDATION SEE BELOW Normal [facility] Comment on above: Result Comment: ADA RECOMMENDED LIMIT 4.0 - 6.0 ADA THERAPEUTIC TARGET < 7.0 ACTION SUGGESTED > 7.0 Performed By: #### A 1C #### [facility] [address] [address] [address] Juan Pablo Kaminski Glucose [Mass/Vol] 128 mg/dL Normal [facility] Comment on above: Performed By: #### A 1C #### [facility] [address] [address] [address] Juan Pablo Kaminski US SCROTUM W [...] LEIDY PEREIRA Date: 2021-12-25 18:32 Normal [facility] Urine culture routineOrdered By: Sam Simons on 12-19-2021 Bacteria identified Cx Nom (U) Pseudomonas aeruginosa [facility] Automated erythrocytes count in urine sediment (number/area)Ordered By: Sam Simons on 12-17-2021 RBC Auto (Urine sed) [#/Area] 1-2 [HPF] 0-4 [facility] Automated leukocytes count i n urine sediment (number/area)Ordered By: Sam Simons on 12-17-2021 WBC Auto (Urine sed) [#/Area] 20-49 [HPF] 0-4 [facility] Bilirubin Test strip Ql (U)O rdered By: Sam Simons on 12-17-2021 Bilirubin Ql (U) Negative Negative [facility] Color Auto (U)Ordered By: Micheal Simons on 12-17-2021 Color (U) Yellow Yellow [facility] Ketones Auto test strip (U) [Mass/Vol]Ordered By: Sam Simons on 12-17-2021 Ketones (U) [Mass/Vol] Negative Negative [facility] - UrinalysisOrder ed By: Sam Simons on 12-17-2021 Hyaline casts LM Ql (Urine sed) 0-8 [LPF] 0-8 [facility] Nitrite Test strip Ql (U)Ord ered By: Sam Simons on 12-17-2021 Nitrite Ql (U) Negative Negative [facility] Protein Auto test strip (U) [Mass/Vol]Ordered By: Sam Simons on 12-17-2021 Protein (U) [Mass/Vol] Negative Negative [facility] Specific gravity Auto test s trip (U) [Rel density]Ordered By: Sam Simons on 12-17-2021 Specific gravity (U) [Rel density] 1.016 1.001-1.030 [facility] Squamous epithelial cells de tection in urine sediment by light microscopyOrdered By: Sam Simons on 12-17-2021 Epithelial cells.squamous LM Ql (Urine sed) 0-1 [HPF] 0-2 [facility] Urine bacteria detection by automated methodOrdered By: Sam Simons on 12-17-2021 Bacteria Auto Ql (U) None seen None Seen [facility] Urine clarity by refractomet ry automatedOrdered By: Sam Simons on 12-17-2021 Clarity Refractometry automated (U) Clear Clear [facility] Urine glucose measurement by automated test strip (mass/volume)Ordered By: Sam Simons on 12-17-2021 Glucose Auto test strip (U) [Mass/Vol] Normal mg/dL Normal [facility] Urine hemoglobin detection b y automated test stripOrdered By: Sam Simons on 12-17-2021 Hemoglobin Auto test strip Ql (U) Negative Negative [facility] Urine leukocyte esterase det ection by automated test stripOrdered By: Sam Simons on 12-17-2021 Leukocyte esterase Auto test strip Ql (U) 4+ Negative [facility] Urobilinogen Auto test strip (U) [Mass/Vol]Ordered By: Sam Simons on 12-17-2021 Urobilinogen (U) [Mass/Vol] Normal mg/dL Normal [facility] pH Auto test strip (U)Ordere d By: Sam Simons on 12-17-2021 pH (U) 6.0 [pH] 5.0-9.0 [facility] Urine culture routineOrdered By: Davis Cervantes on 12-13-2021 Bacteria identified Cx Nom (U) No Growth 2 Days [facility] Automated erythrocytes count in urine sediment (number/area)Ordered By: Davis Cervantes on 12-11-2021 RBC Auto (Urine sed) [#/Area] 20-49 [HPF] 0-4 [facility] Automated leukocytes count i n urine sediment (number/area)Ordered By: Davis Cervantes on 12-11-2021 WBC Auto (Urine sed) [#/Area] 10-19 [HPF] 0-4 [facility] Basophils Auto (Bld) [#/Vol] Ordered By: Davis Cervantes on 12-11-2021 Basophils (Bld) [#/Vol] 0.1 10*3/uL 0.0-0.2 [facility] Basophils/100 WBC Auto (Bld) Ordered By: Davis Cervantes on 12-11-2021 Basophils/100 WBC (Bld) 1.2 % . [facility] Bilirubin Test strip Ql (U)O rdered By: Davis Cervantes on 12-11-2021 Bilirubin Ql (U) Negative Negative [facility] Blood hemoglobin measurement (mass/volume)Ordered By: Davis Cervantes on 12-11-2021 Hemoglobin (Bld) [Mass/Vol] 13.3 g/dL 13.0-17.0 [facility] Blood leukocytes automated c ount (number/volume)Ordered By: Davis Cervantes on 12-11-2021 WBC (Bld) [#/Vol] 8.2 10*3/uL 4.5-11.0 [facility] Color Auto (U)Ordered By: Mary Cervantes on 12-11-2021 Color (U) Yellow Yellow [facility] Creatinine and Glomerular fi ltration rate.predicted panel (S/P/Bld)Ordered By: Davis Cervantes on 12-11-2021 Creatinine [Mass/Vol] 1.16 mg/dL 0.64-1.27 [facility] Eosinophils Auto (Bld) [#/Vo l]Ordered By: Davis Cervantes on 12-11-2021 Eosinophils (Bld) [#/Vol] 0.2 10*3/uL 0.0-0.45 [facility] Eosinophils/100 WBC Auto (Bl d)Ordered By: Davis Cervantes on 12-11-2021 Eosinophils/100 WBC (Bld) 2.9 % . [facility] Erythrocyte distribution wid th Auto (RBC) [Ratio]Ordered By: Davis Cervantes on 12-11-2021 Erythrocyte distribution width (RBC) [Ratio] 11.8 % 12.0-14.8 [facility] Estimated glomerular filtrat ion rate (GFR) non- AmericanOrdered By: Davis Cervantes on 12-11-2021 GFR/1.73 sq M.predicted among non-blacks MDRD (S/P/Bld) [Vol rate/Area] 60 mL/Min [facility] Hematocrit Auto (Bld) [Volum e fraction]Ordered By: Davis Cervantes on 12-11-2021 Hematocrit (Bld) [Volume fraction] 39.6 % 38.8-50.0 [facility] Ketones Auto test strip (U) [Mass/Vol]Ordered By: Davis Cervantes on 12-11-2021 Ketones (U) [Mass/Vol] Negative [facility] Hematology and Cell countsOrdered By: Davis Cervantes on 12-11-2021 Nucleated RBC/100 WBC (Bld) [Ratio] 0.0 % 0-0.5 [facility] - UrinalysisOrder ed By: Davis Cervantes on 12-11-2021 Hyaline casts LM Ql (Urine sed) 0-8 [LPF] 0-8 [facility] Lymphocytes Auto (Bld) [#/Vo l]Ordered By: Davis Cervantes on 12-11-2021 Lymphocytes (Bld) [#/Vol] 1.9 10*3/uL 1.00-4.8 [facility] Lymphocytes/100 WBC Auto (Bl d)Ordered By: Davis Cervantes on 12-11-2021 Lymphocytes/100 WBC (Bld) 23.3 % . [facility] MCH Auto (RBC) [Entitic mass ]Ordered By: Davis Cervantes on 12-11-2021 MCH (RBC) [Entitic mass] 32.0 pg 27.5-35.2 [facility] MCHC Auto (RBC) [Mass/Vol]Or dered By: Davis Cervantes on 12-11-2021 MCHC (RBC) [Mass/Vol] 33.6 g/dL 32.5-35.6 [facility] MCV Auto (RBC) [Entitic vol] Ordered By: Davis Cervantes on 12-11-2021 MCV (RBC) [Entitic vol] 95.1 fL 83.5-101 [facility] Monocytes Auto (Bld) [#/Vol] Ordered By: Davis Cervantes on 12-11-2021 Monocytes (Bld) [#/Vol] 1.1 10*3/uL 0.0-0.8 [facility] Monocytes/100 WBC Auto (Bld) Ordered By: Davis Cervantes on 12-11-2021 Monocytes/100 WBC (Bld) 13.6 % . [facility] Neutrophils Auto (Bld) [#/Vo l]Ordered By: Davis Cervantes on 12-11-2021 Neutrophils (Bld) [#/Vol] 4.8 10*3/uL 1.8-7.7 [facility] Neutrophils/100 WBC Auto (Bl d)Ordered By: Davis Cervantes on 12-11-2021 Neutrophils/100 WBC (Bld) 59.0 % . [facility] Nitrite Test strip Ql (U)Ord ered By: Davis Cervantes on 12-11-2021 Nitrite Ql (U) Negative Negative [facility] No Panel InformationOrdered By: Davis Cervantes on 12-11-2021 Estimated GFR () > 60 mL/Min [facility] Comment on above: GFR estimated refere nce range: According to KDOQI guidelines, <60 ml/min/1.73m2 is sufficient to diagnose a patient with chronic kidney disease. Pharmacy Creatinine Clearance (Chem 57.67 [facility] Platelet mean volume Auto (B ld) [Entitic vol]Ordered By: Davis Cervantes on 12-11-2021 Platelet mean volume (Bld) [Entitic vol] 7.0 fL 6.6-10.1 [facility] Platelets Auto (Bld) [#/Vol] Ordered By: Davis Cervantes on 12-11-2021 Platelets (Bld) [#/Vol] 266 10*3/uL 150-450 [facility] Protein Auto test strip (U) [Mass/Vol]Ordered By: Davis Cervantes on 12-11-2021 Protein (U) [Mass/Vol] Negative Negative Fi [facility] RBC Auto (Bld) [#/Vol]Ordere d By: Davis Cervantes on 12-11-2021 RBC (Bld) [#/Vol] 4.17 10*6/uL 3.90-5.60 [facility] Serum or plasma anion gap de terminationOrdered By: Davis Cervantes on 12-11-2021 Anion gap [Moles/Vol] 12.2 mmol/L 6.0-15.0 [facility] Serum or plasma calcium maggy urement (mass/volume)Ordered By: Davis Cervantes on 12-11-2021 Calcium [Mass/Vol] 9.0 mg/dL 8.2-10.2 [facility] Serum or plasma chloride duran surement (moles/volume)Ordered By: Davis Cervantes on 12-11-2021 Chloride [Moles/Vol] 96 mmol/L 95-114 [facility] Serum or plasma glucose maggy urement (mass/volume)Ordered By: Davis Cervantes on 12-11-2021 Glucose [Mass/Vol] 131 mg/dL 70-100 [facility] Comment on above: ADA recommended refe rence rangeRandom Glucose Reference Range is dependent on time and content of last meal. Glucose of more than 200 mg/dL in a nonstressed, ambulatory subject supports the diagnosis of Diabetes Mellitus. Serum or plasma potassium me asurement (moles/volume)Ordered By: Davis Cervantes on 12-11-2021 Potassium [Moles/Vol] 4.5 mmol/L 3.5-5.1 [facility] Serum or plasma sodium measu rement (moles/volume)Ordered By: Davis Cervantes on 12-11-2021 Sodium [Moles/Vol] 131 mmol/L 136-146 [facility] Serum or plasma total carbon dioxide measurement (moles/volume)Ordered By: Davis Cervantes on 12-11-2021 CO2 [Moles/Vol] 27.3 mmol/L 22.0-30.0 [facility] Serum or plasma urea nitroge n measurement (mass/volume)Ordered By: Davis Cervantes on 12-11-2021 Urea nitrogen [Mass/Vol] 20 mg/dL 9-23 [facility] Specific gravity Auto test s trip (U) [Rel density]Ordered By: Davis Cervantes on 12-11-2021 Specific gravity (U) [Rel density] 1.014 1.001-1.030 [facility] Squamous epithelial cells de tection in urine sediment by light microscopyOrdered By: Davis Cervantes on 12-11-2021 Epithelial cells.squamous LM Ql (Urine sed) 0-1 [HPF] 0-2 [facility] Urine bacteria detection by automated methodOrdered By: Davis Cervantes on 12-11-2021 Bacteria Auto Ql (U) None seen None Seen [facility] Urine clarity by refractomet ry automatedOrdered By: Davis Cervantes on 12-11-2021 Clarity Refractometry automated (U) Clear Clear [facility] Urine glucose measurement by automated test strip (mass/volume)Ordered By: Davis Cervantes on 12-11-2021 Glucose Auto test strip (U) [Mass/Vol] Normal mg/dL Normal [facility] Urine hemoglobin detection b y automated test stripOrdered By: Davis Cervantes on 12-11-2021 Hemoglobin Auto test strip Ql (U) 2+ Negative [facility] Urine leukocyte esterase det ection by automated test stripOrdered By: Davis Cervantes on 12-11-2021 Leukocyte esterase Auto test strip Ql (U) 2+ Negative [facility] Urobilinogen Auto test strip (U) [Mass/Vol]Ordered By: Davis Cervantes on 12-11-2021 Urobilinogen (U) [Mass/Vol] Normal mg/dL Normal [facility] pH Auto test strip (U)Ordere d By: Davis Cervantes on 12-11-2021 pH (U) 5.5 [pH] 5.0-9.0 [facility] ED NOTEon 11-27-2021 ED NOTE HNO ID: [id number] Author: Alyx Vergara RN Service: Nursing Author Type: Registered Nurse Type: ED Notes Filed: 11/26/2021 10:21 PM Note Text: Discharge instructions and follow up appointments reviewed. Pt verbalized understanding and states no concerns or questions at this time. VSS. Spoke with Asha about elevated BP. Stated that it's okay for pt to go and have him f/u with his PCP. Normal [facility] ED NOTE HNO ID: [id number] Author: Alyx Vergara RN Service: Nursing Author Type: Registered Nurse Type: ED Notes Filed: 11/26/2021 10:10 PM Note Text: Replaced hamilton bag with leg bag. Normal [facility] Bacteria Ur Culton 2 Bacteria identified Cx Nom (U) [id number] Abnormal [facility] Comment on above: Order Comment: Speci men Type: URINE SPECIMEN Ordering Facility: [facility] Address: [address] [place] [address] Result Comment: >=10 0,000 CFU/ml Klebsiella oxytoca Performed By: #### 6 30-4, 35108-2 #### [facility] CLIA [id number] [address] [place] [address] [place] Bacterial susceptibility maldonado el (Isol)on 11-26-2021 Ampicillin [Susc] Resistant [facility] Comment on above: Order Comment: Order ing Facility: [facility] Address: [address] [place] [address] Performed By: #### 6 30-4, 80139-7 #### [facility] CLIA [id number] [address] [place] [address] [place] Ampicillin+Sulbactam [Susc] 4 Susceptible Susceptible <=8 , Intermediate >8 , Resistant >16 [facility] Comment on above: Order Comment: Order ing Facility: [facility] Address: [address] [place] [address] Performed By: #### 6 30-4, 99434-6 #### [facility] CLIA [id number] [address] [place] [address] [place] ceFAZolin [Susc] <=4 Susceptible Susceptible 0-16 , Intermediate <0 or >16 , Resistant >16 [facility] Comment on above: Order Comment: Order ing Facility: [facility] Address: [address] [place] [address] Performed By: #### 6 30-4, 20713-4 #### [facility] CLIA [id number] [address] [place] [address] [place] Cefepime [Susc] <=1 Susceptible Susceptible <=2 , Intermediate >2 , Resistant >=16 [facility] Comment on above: Order Comment: Order ing Facility: [facility] Address: [address] [place] [address] Performed By: #### 6 30-4, 40384-4 #### [facility] CLIA [id number] [address] [place] [address] [place] cefTRIAXone [Susc] <=1 Susceptible Susceptib le <=1 , Intermediate >1 , Resistant >=4 [facility] Comment on above: Order Comment: Order ing Facility: [facility] Address: [address] Performed By: #### 6 30-4, 33547-0 #### [facility] CLIA [id number] [address] [place] [address] [place] Ciprofloxacin [Susc] <=0.25 Susceptible Suscept ible <0.5 , Intermediate >=.5 , Resistant >=1 [facility] Comment on above: Order Comment: Order ing Facility: [facility] Address: [address] [place] [address] Performed By: #### 6 30-4, 01701-4 #### [facility] CLIA [id number] [address] [place] [address] [place] Ertapenem ROCIO [Susc] <=0.5 Susceptible Suscept ible <=0.5 , Intermediate >.5 , Resistant >1 [facility] Comment on above: Order Comment: Order ing Facility: [facility] Address: [address] [place], [place] [address] Performed By: #### 6 30-4, 56144-2 #### [facility] CLIA [id number] [address] [place] [address] [place] Gentamicin [Susc] <=1 Susceptible Susceptibl e <=4 , Intermediate >4 , Resistant >8 [facility] Comment on above: Order Comment: Order ing Facility: [facility] Address: [address] Performed By: #### 6 30-4, 33040-4 #### [facility] CLIA [id number] [address] [place] [address] [place] Meropenem [Susc] <=0.25 Susceptible Susceptible <=1 , Intermediate >1 , Resistant >2 [facility] Comment on above: Order Comment: Order ing Facility: [facility] Address: [address] [place], [place] [address] Performed By: #### 6 30-4, 21328-6 #### [facility] CLIA [id number] [address] [place] [address] Nitrofurantoin [Susc] 32 Susceptible Suscep tible <=32 , Intermediate >32 , Resistant >64 [facility] Comment on above: Order Comment: Order ing Facility: [facility] Address: [address] [place], [place] [address] Performed By: #### 6 30-4, 42531-1 #### [facility] CLIA [id number] [address] [place] [address] [place] Piperacillin+Sulbactam ROCIO [Susc] <=4 Susceptible Susceptible <=16 , Intermediate >16 , Resistant >64 [facility] Comment on above: Order Comment: Order ing Facility: [facility] Address: [address] [place] [address] Performed By: #### 6 30-4, 27310-6 #### [facility] CLIA [id number] [address] [place] [address] [place] Tobramycin [Susc] <=1 Susceptible Susceptibl e <=4 , Intermediate >4 , Resistant >8 [facility] Comment on above: Order Comment: Order ing Facility: [facility] Address: [address] [place], [place] [address] Performed By: #### 6 30-4, 47817-1 #### [facility] CLIA [id number] [address] [place] [address] [place] Trimethoprim+Sulfameth oxazole [Susc] <=20 Susceptible Susceptible <=40 , Resistant >40 [facility] Comment on above: Order Comment: Order ing Facility: [facility] Address: [address] [place], [place] [address] Performed By: #### 6 30-4, 96819-4 #### [facility] CLIA [id number] [address] [facility] [place] [address] [place] ED NOTEon 11-26-2021 ED NOTE HNO ID: [id number] Author: Alyx Vergara RN Service: Nursing Author Type: Registered Nurse Type: ED Notes Filed: 11/26/2021 9:20 PM Note Text: Replaced hamilton per Asha DIXON. [facility] ED NOTE HNO ID: [id number] Author: Alyx Vergara RN Service: Nursing Author Type: Registered Nurse Type: ED Notes Filed: 11/26/2021 9:01 PM Note Text: Was instructed to bladder scan pt due to pt having no urine in replaced bag. Bladder scanned 261 mL's the first time. Then 214 mL's the second time. Made Asha ESQUIVEL) aware. [facility] ED NOTE HNO ID: [id number] Author: Alyx Vergara RN Service: Nursing Author Type: Registered Nurse Type: ED Notes Filed: 11/26/2021 9:49 PM Note Text: Flushed 20 mL Hamilton. No leaking noted around tube. [facility] ED PROV NOTEon 11-26-2021 ED PROV NOTE HNO ID: [id number] Author: Asha Clinton PA-C Service: ? Author Type: Physician Pressurised Container Filler Type: ED Provider Notes Filed: 11/26/2021 10:26 [...] / Clinical Impression Clinical Impressions as of 11/26/210 Acute cystitis with hematuria Urinary retention Elevated [...] culture. Previous and only urine culture in [facility] on 11/07 had no growth. Given dose of Keflex. Prescription for this E scripted to pharmacy. Patient discharged with Hamilton in place, leg bag instructions. Elevated blood pressure noted and improved during stay. No CP, sob, dizziness or any other complaints. Recommend f/u with pcp for recheck. All questions and concerns addre (more content not included)... Normal [facility] Urinalysis complete panel (U )on 11-26-2021 Bacteria LM.HPF (Urine sed) [#/Area] Many Abnormal None Seen [facility] Comment on above: Order Comment: Speci men Type: URINE SPECIMEN Ordering Facility: [facility] Address: [address] [place] [id number] Performed By: #### 6 30-4, 03461-3 #### [facility] CLIA [id number] [address] [place] [address] [place] [address] [place] Bilirubin Ql (U) Negative Normal Negative [facility] Comment on above: Order Comment: Speci men Type: URINE SPECIMEN Ordering Facility: [facility] Address: [address] [place], [place] [address] Performed By: #### 6 30-4, 62595-3 #### [facility] CLIA [id number] [address] [place] [address] [place] Clarity (Unsp spec) Cloudy Abnormal Clear [facility] Comment on above: Order Comment: Speci men Type: URINE SPECIMEN Ordering Facility: [facility] Address: [address] [place] [address] Performed By: #### 6 30-4, 04337-1 #### [facility] CLIA [id number] [address] [place] [address] [place] Color (U) Yellow Normal Yellow [facility] Comment on above: Order Comment: Speci men Type: URINE SPECIMEN Ordering Facility: [facility] Address: [address] [place], [place] [address] Performed By: #### 6 30-4, 00464-0 #### [facility] CLIA [id number] [address] [place] [address] [place] Epithelial cells LM.HPF (Urine sed) [#/Area] Few Normal [facility] Comment on above: Order Comment: Speci men Type: URINE SPECIMEN Ordering Facility: [facility] Address: [address] [place], [place] [address] Performed By: #### 6 30-4, 51245-6 #### [facility] CLIA [id number] [address] [place] [address] [place] Glucose Test strip (U) [Mass/Vol] Negative Normal Negative [facility] Comment on above: Order Comment: Speci men Type: URINE SPECIMEN Ordering Facility: [facility] Address: [address] [place], [place] [address] Performed By: #### 6 30-4, 56374-4 #### [facility] CLIA [id number] [address] [place] [address] [place] Hemoglobin Ql (U) 2+ Abnormal Negative [facility] Comment on above: Order Comment: Speci men Type: URINE SPECIMEN Ordering Facility: [facility] Address: [address] [place] [address] Performed By: #### 6 30-4, 79829-1 #### [facility] CLIA [id number] [address] [place] [address] [place] Ketones Ql (U) Negative Normal Negative [facility] Comment on above: Order Comment: Speci men Type: URINE SPECIMEN Ordering Facility: [facility] Address: [address] [place] [address] Performed By: #### 6 30-4, 23321-7 #### [facility] CLIA [id number] [address] [place] [address] [place] Leukocyte esterase Test strip Ql (U) 3+ Abnormal Negative [facility] Comment on above: Order Comment: Speci men Type: URINE SPECIMEN Ordering Facility: [facility] Address: [address] [place] [address] Performed By: #### 6 30-4, 64625-1 #### [facility] CLIA [id number] [address] [place] [address] [place] Nitrite Ql (U) Positive Abnormal Negative [facility] Comment on above: Order Comment: Speci men Type: URINE SPECIMEN Ordering Facility: [facility] Address: [address] [place], [place] [address] Performed By: #### 6 30-4, 23743-2 #### [facility] CLIA [id number] [address] [place] [address] [place] pH (U) 5.5 [pH] Normal 5.0-8.0 [facility] Comment on above: Order Comment: Speci men Type: URINE SPECIMEN Ordering Facility: [facility] Address: [address] [place] [address] Performed By: #### 6 30-4, 81423-6 #### [facility] CLIA [id number] [address] [place] [address] [place] Protein (U) [Mass/Vol] Normal [facility] Comment on above: Order Comment: Speci men Type: URINE SPECIMEN Ordering Facility: [facility] Address: [address] [place] [address] Result Comment: Visi ble blood causes falsely elevated results for analyte Protein. Due to this limitation, Protein will not be reported for patients whose urine contains visible blood. Performed By: #### 6 30-4, 99726-8 #### [facility] CLIA [id number] [address] [place] [address] [place] RBC LM.HPF (Urine sed) [#/Area] 6-10 /HPF Abnormal 0-3 /HPF [facility] Comment on above: Order Comment: Speci men Type: URINE SPECIMEN Ordering Facility: [facility] Address: [address] [place] [address] Performed By: #### 6 30-4, 32186-9 #### [facility] CLIA [id number] [address] [place] [address] [place] Specific gravity (U) [Rel density] 1.009 Normal 1.005-1.030 [facility] Comment on above: Order Comment: Speci men Type: URINE SPECIMEN Ordering Facility: [facility] Address: [address] [place] [address] Performed By: #### 6 30-4, 63893-0 #### [facility] CLIA [id number] [address] [place] [address] [place] Urobilinogen Ql (U) 0.2 EU/dL Normal 0.2-1.0 EU/dL [facility] Comment on above: Order Comment: Speci men Type: URINE SPECIMEN Ordering Facility: [facility] Address: [address] [place] [address] Performed By: #### 6 30-4, 01740-6 #### [facility] CLIA [id number] [address] [place] [address] [place] WBC LM.HPF (Urine sed) [#/Area] 11-25 /HPF Abnormal 0-5 /HPF [facility] Comment on above: Order Comment: Speci men Type: URINE SPECIMEN Ordering Facility: [facility] Address: [address] [place] [address] Performed By: #### 6 30-4, 37691-1 #### [facility] CLIA [id number] [address] [place] [address] [place] [facility]on SARS-CoV-2 (COVID-19) RNA LUANNE+probe Ql (Unsp spec) Not detected Normal NOT DETECTED [facility] Comment on above: Result Comment: This test is not yet approved or cleared by the [place] FDA. When there are no FDA-approved or cleared tests available, and other criteria are met, FDA can make tests available under an emergency access mechanism called an Emergency Use Authorization (EUA). The EUA for this test is supported by the [place] of Health and Human Service's (HHS's) declaration [...] SARS-CoV-2. Performed By: #### C VDTBH #### [facility] [address] [address] [address] Juan Pablo Kaminski Bacteria Ur Culton 08-26-202 2 Bacteria identified Cx Nom (U) No growth (<1,000 CFU/ml) Normal [facility] Comment on above: Order Comment: Speci men Type: URINE SPECIMEN Ordering Facility: [facility] Address: [address] [place] [address] Performed By: #### 6 30-4 #### [facility] CLIA [id number] [address] [place] [address] [place] Basic metabolic 2000 panelon 11-07-2021 Anion gap [Moles/Vol] 10 mmol/L Normal 9-18 [facility] Comment on above: Order Comment: Speci men Type: URINE SPECIMEN Ordering Facility: [facility] Address: [address] [place], [place] [address] Performed By: #### 6 30-4, 65585-9 #### [facility] CLIA [id number] [address] [place] [address] [place] Calcium [Mass/Vol] 9.1 mg/dL Normal 8.5-10.2 [facility] Comment on above: Order Comment: Speci men Type: URINE SPECIMEN Ordering Facility: [facility] Address: [address] [place], [place] [address] Performed By: #### 6 30-4, 29309-9 #### [facility] CLIA [id number] [address] [place] [address] [place] Chloride [Moles/Vol] 95 mmol/L Low 97-105 [facility] Comment on above: Order Comment: Speci men Type: URINE SPECIMEN Ordering Facility: [facility] Address: [address] [place], [place] [address] Performed By: #### 6 30-4, 66360-5 #### [facility] CLIA [id number] [address] [place] [address] [place] CO2 [Moles/Vol] 25 mmol/L Normal 22-30 [facility] Comment on above: Order Comment: Speci men Type: URINE SPECIMEN Ordering Facility: [facility] Address: [address] [place] [address] Performed By: #### 6 30-4, 79882-4 #### [facility] CLIA [id number] [address] [place] [address] [place] Creatinine [Mass/Vol] 1.25 mg/dL High 0.73-1.22 [facility] Comment on above: Order Comment: Speci men Type: URINE SPECIMEN Ordering Facility: [facility] Address: [address] [place] [address] Performed By: #### 6 30-4, 54917-5 #### [facility] CLIA [id number] [address] [place] [address] [place] ESTIMATED GLOMERULAR FILTRATION RATE 57 mL/min/1.73m??? Low >=60 [facility] Comment on above: Order Comment: Domonique men Type: URINE SPECIMEN Ordering Facility: [facility] Address: [address] [place] [address] Result Comment: Annalise mated Glomerular Filtration Rate [...] actual GFR. Performed By: #### 6 30-4, 05589-3 #### [facility] CLIA [id number] [address] [place] [address] [place] Glucose [Mass/Vol] 129 mg/dL High 74-99 [facility] Comment on above: Order Comment: Ambrocioi men Type: URINE SPECIMEN Ordering Facility: [facility] Address: [address] [place] [address] Result Comment: The [place] Diabetes [employer] (ADA) provides guidance for cutoff [...] Standards of Medical Care in Diabetes 2016, [place] [employer]. Diabetes Care. 2016.39(Suppl 1). Performed By: #### 6 30-4, 45046-8 #### [facility] CLIA [id number] [address] [place] [address] [place] Potassium [Moles/Vol] 4.6 mmol/L Normal 3.7-5.1 [facility] Comment on above: Order Comment: Speci men Type: URINE SPECIMEN Ordering Facility: [facility] Address: [address] [place] [address] Performed By: #### 6 30-4, 50854-1 #### [facility] CLIA [id number] [address] [place] [address] [place] Sodium [Moles/Vol] 130 mmol/L Low 136-144 [facility] Comment on above: Order Comment: Speci men Type: URINE SPECIMEN Ordering Facility: [facility] Address: [address] [place] [address] Performed By: #### 6 30-4, 08846-2 #### [facility] CLIA [id number] [address] [place] [address] [place] Urea nitrogen [Mass/Vol] 23 mg/dL Normal 9-24 [facility] Comment on above: Order Comment: Speci men Type: URINE SPECIMEN Ordering Facility: [facility] Address: [address] [place] [address] Performed By: #### 6 30-4, 82541-9 #### [facility] CLIA [id number] [address] [place] [address] [place] CBC W Auto Differential pane l (Bld)on 11-07-2021 Basophils/100 WBC (Bld) 0.0 % Normal [facility] Comment on above: Order Comment: Speci men Type: URINE SPECIMEN Ordering Facility: [facility] Address: [address] [place] [address] Performed By: #### 6 30-4, 83092-0 #### [facility] CLIA [id number] [address] [place] [address] [place] Differential cell count method Nom (Bld) Manual Normal [facility] Comment on above: Order Comment: Speci men Type: URINE SPECIMEN Ordering Facility: [facility] Address: [address] [place] [address] Performed By: #### 6 30-4, 05464-6 #### [facility] CLIA [id number] [address] [place] [address] [place] Eosinophils (Bld) [#/Vol] 0.10 10*3/uL Normal <0.46 [facility] Comment on above: Order Comment: Speci men Type: URINE SPECIMEN Ordering Facility: [facility] Address: [address] [place] [address] Performed By: #### 6 30-4, 96026-5 #### [facility] CLIA [id number] [address] [place] [address] [place] Eosinophils/100 WBC (Bld) 1.0 % Normal [facility] Comment on above: Order Comment: Speci men Type: URINE SPECIMEN Ordering Facility: [facility] Address: [address] [place], [place] [address] Performed By: #### 6 30-4, 72881-3 #### [facility] CLIA [id number] [address] [place] [address] [place] Erythrocyte distribution width (RBC) [Ratio] 11.5 % Normal 11.5-15.0 [facility] Comment on above: Order Comment: Speci men Type: URINE SPECIMEN Ordering Facility: [facility] Address: [address] [place], [place] [address] Performed By: #### 6 30-4, 90148-5 #### [facility] CLIA [id number] [address] [place] [address] [place] Hematocrit (Bld) [Volume fraction] 39.8 % Normal 39.0-51.0 [facility] Comment on above: Order Comment: Speci men Type: URINE SPECIMEN Ordering Facility: [facility] Address: [address] [place], [place] [address] Performed By: #### 6 30-4, 44256-3 #### [facility] CLIA [id number] [address] [place] [address] [place] Hemoglobin (Bld) [Mass/Vol] 13.4 g/dL Normal 13.0-17.0 [facility] Comment on above: Order Comment: Speci men Type: URINE SPECIMEN Ordering Facility: [facility] Address: [address] [place], [place] [address] Performed By: #### 6 30-4, 42411-7 #### [facility] CLIA [id number] [address] [place] [address] [place] Lymphocytes (Bld) [#/Vol] 1.67 10*3/uL Normal 1.00-4.00 [facility] Comment on above: Order Comment: Speci men Type: URINE SPECIMEN Ordering Facility: [facility] Address: [address] [place], [place] [address] Performed By: #### 6 30-4, 05284-8 #### [facility] CLIA [id number] [address] [place] [address] [place] Lymphocytes/100 WBC (Bld) 17.0 % Normal [facility] Comment on above: Order Comment: Speci men Type: URINE SPECIMEN Ordering Facility: [facility] Address: [address] [place], [place] [address] Performed By: #### 6 30-4, 02462-7 #### [facility] CLIA [id number] [address] [place] [address] [place] MCH (RBC) [Entitic mass] 31.5 pg Normal 26.0-34.0 [facility] Comment on above: Order Comment: Speci men Type: URINE SPECIMEN Ordering Facility: [facility] Address: [address] [place] [address] Performed By: #### 6 30-4, 78319-4 #### [facility] CLIA [id number] [address] [place] [address] [place] MCHC (RBC) [Mass/Vol] 33.7 g/dL Normal 30.5-36.0 [facility] Comment on above: Order Comment: Speci men Type: URINE SPECIMEN Ordering Facility: [facility] Address: [address] [place] [address] Performed By: #### 6 30-4, 99321-3 #### [facility] CLIA [id number] [address] [place] [address] [place] MCV (RBC) [Entitic vol] 93.4 fL Normal 80.0-100.0 [facility] Comment on above: Order Comment: Speci men Type: URINE SPECIMEN Ordering Facility: [facility] Address: [address] [place] [address] Performed By: #### 6 30-4, 18873-8 #### [facility] CLIA [id number] [address] [place] [address] [place] Neutrophils (Bld) [#/Vol] 6.29 10*3/uL Normal 1.45-7.50 [facility] Comment on above: Order Comment: Speci men Type: URINE SPECIMEN Ordering Facility: [facility] Address: [address] [place] [address] Performed By: #### 6 30-4, 98044-9 #### [facility] CLIA [id number] [address] [place] [address] [place] Neutrophils/100 WBC (Bld) 64.0 % Normal [facility] Comment on above: Order Comment: Speci men Type: URINE SPECIMEN Ordering Facility: [facility] Address: [address] [place] [address] Performed By: #### 6 30-4, 60913-0 #### [facility] CLIA [id number] [address] [place] [address] [place] Nucleated RBC/100 WBC (Bld) [Ratio] 0.0 /100 WBC Normal [facility] Comment on above: Order Comment: Speci men Type: URINE SPECIMEN Ordering Facility: [facility] Address: [address] [place] [address] Performed By: #### 6 30-4, 34790-9 #### [facility] CLIA [id number] [address] [place] [address] [place] PLATELET ESTIMATE Adequate Normal [facility] Comment on above: Order Comment: Speci men Type: URINE SPECIMEN Ordering Facility: [facility] Address: [address] [place] [address] Performed By: #### 6 30-4, 10960-6 #### [facility] CLIA [id number] [address] [place] [address] [place] Platelet mean volume (Bld) [Entitic vol] 10.2 fL Normal 9.0-12.7 [facility] Comment on above: Order Comment: Speci men Type: URINE SPECIMEN Ordering Facility: [facility] Address: [address] [place], [place] [address] Performed By: #### 6 30-4, 99675-1 #### [facility] CLIA [id number] [address] [place] [address] [place] Platelets (Bld) [#/Vol] 258 10*3/uL Normal 150-400 [facility] Comment on above: Order Comment: Speci men Type: URINE SPECIMEN Ordering Facility: [facility] Address: [address] [place], [place] [address] Performed By: #### 6 30-4, 16230-3 #### [facility] CLIA [id number] [address] [place] [address] [place] RBC (Bld) [#/Vol] 4.26 10*6/uL Normal 4.20-6.00 [facility] Comment on above: Order Comment: Speci men Type: URINE SPECIMEN Ordering Facility: [facility] Address: [address] [place], [place] [address] Performed By: #### 6 30-4, 23951-4 #### [facility] CLIA [id number] [address] [place] [address] [place] RED CELL MORPH Reviewed: unremarkable Normal [facility] Comment on above: Order Comment: Speci men Type: URINE SPECIMEN Ordering Facility: [facility] Address: [address] [place], [place] [address] Performed By: #### 6 30-4, 13129-5 #### [facility] CLIA [id number] [address] [place] [address] [place] WAM - ABS BASO 0.00 k/uL Normal <0.11 [facility] Comment on above: Order Comment: Speci men Type: URINE SPECIMEN Ordering Facility: [facility] Address: [address] [place], [place] [address] Performed By: #### 6 30-4, 26443-0 #### [facility] CLIA [id number] [address] [place] [address] [place] WAM - ABS MONO 1.77 k/uL High <0.87 [facility] Comment on above: Order Comment: Speci men Type: URINE SPECIMEN Ordering Facility: [facility] Address: [address] [place], [place] [address] Performed By: #### 6 30-4, 74988-1 #### [facility] CLIA [id number] [address] [place] [address] [place] WAM - MONO% 18.0 % Normal [facility] Comment on above: Order Comment: Speci men Type: URINE SPECIMEN Ordering Facility: [facility] Address: [address] [place] [address] Performed By: #### 6 30-4, 00330-2 #### [facility] CLIA [id number] [address] [place] [address] [place] WAM ABSOLUTE NRBC <0.01 Normal <0.01 [facility] Comment on above: Order Comment: Speci men Type: URINE SPECIMEN Ordering Facility: [facility] Address: [address] [place] [address] Performed By: #### 6 30-4, 29259-6 #### [facility] CLIA [id number] [address] [place] [address] [place] WBC (Bld) [#/Vol] 9.83 10*3/uL Normal 3.70-11.00 [facility] Comment on above: Order Comment: Speci men Type: URINE SPECIMEN Ordering Facility: [facility] Address: [address] [place] [address] Performed By: #### 6 30-4, 16622-3 #### [facility] CLIA [id number] [address] [place] [address] [place] ED NOTEon 11-07-2021 ED NOTE HNO ID: [id number] Author: Yoshi Schumacher RN Service: ? Author Type: Registered Nurse Type: ED Notes Filed: 11/07/2021 5:14 PM Note Text: Pt provided with discharged instructions. Medications gone over and all questions answered. Pt. Left with steady gait with friend for a ride. Normal [facility] ED NOTE HNO ID: [id number] Author: Flaquita Donnelly RN Service: ? Author Type: Registered Nurse Type: ED Notes Filed: 11/07/2021 1:24 PM Note Text: Pt to ED for urinary retention. Pt had appointment with Urology on Wednesday, but was not able to be seen. Pt denies pain, but reports pressure in the bladder. Pt states he is not able to urinate completely and reports dribbling. Normal [facility] ED PROV NOTEon 11-07-2021 ED PROV NOTE HNO ID: [id number] Author: Keely Gutierrez DO Service: Emergency Medicine [...] this Wednesday with his urologist out of [place] but was notified that his urologist had [...] Abnormal; Notable for the following components: Abs Evans 1.77 (*) <0.87 k/uL All other components [...] cysts one of which is mildly complex. Sales Support Representative: LIANA Transcribe Date/Time: Nov 07 2021 2:57P [...] at th (more content not included)... Normal [facility] US KIDNEY/BLADDERon 11-08-19 US KIDNEY/BLADDER * * *Final Report* * * DATE OF EXAM: Nov 07 2021 2:52PM [facility] 1055 - US KIDNEY/BLADDER / PROCEDURE REASON: [...] cysts one of which is mildly complex. Sales Support Representative: LIANA Transcribe Date/Time: Nov 07 2021 2:57P Dictated by : NEHEMIAS COLBERT MD This examination was interpreted and the report reviewed and electronically signed by: NEHEMIAS COLBERT MD on Nov 07 2021 3:09PM EST [id number] Normal [facility] Urinalysis complete panel (U )on 11-07-2021 Bilirubin Ql (U) Negative Normal Negative [facility] Comment on above: Order Comment: Speci men Type: URINE SPECIMEN Ordering Facility: [facility] Address: [address] [place] [address] Performed By: #### 6 30-4, 67327-7 #### [facility] CLIA [id number] [address] [place] [address] [place] Clarity (Unsp spec) Clear Normal Clear [facility] Comment on above: Order Comment: Speci men Type: URINE SPECIMEN Ordering Facility: [facility] Address: [address] [place] [address] Performed By: #### 6 30-4, 80125-1 #### [facility] CLIA [id number] [address] [place] [address] [place] Color (U) Yellow Normal Yellow [facility] Comment on above: Order Comment: Speci men Type: URINE SPECIMEN Ordering Facility: [facility] Address: [address] [place] [address] Performed By: #### 6 30-4, 58562-9 #### [facility] CLIA [id number] [address] [place] [address] [place] Epithelial cells LM.HPF (Urine sed) [#/Area] Few Normal [facility] Comment on above: Order Comment: Speci men Type: URINE SPECIMEN [facility] [facility] Address: [address] [place] [address] Performed By: #### 6 30-4, 21861-7 #### [facility] CLIA [id number] [address] [place] [address] [place] Glucose Test strip (U) [Mass/Vol] Negative Normal Negative [facility] Comment on above: Order Comment: Speci men Type: URINE SPECIMEN Ordering Facility: [facility] Address: [address] [place], [place] [id number] Performed By: #### 6 30-4, 14580-5 #### [facility] CLIA [id number] [address] [place] [address] STATES [facility] Hemoglobin Ql (U) Negative Normal Negative [facility] Comment on above: Order Comment: Speci men Type: URINE SPECIMEN Ordering Facility: [facility] Address: [address] [place] [address] Performed By: #### 6 30-4, 10592-1 #### [facility] CLIA [id number] [address] [place] [address] [place] Hyaline casts (Urine sed) [#/Area] 1-3 /LPF Abnormal 0 /LPF [facility] Comment on above: Order Comment: Speci men Type: URINE SPECIMEN Ordering Facility: [facility] Address: [address] [place] [address] Performed By: #### 6 30-4, 76583-4 #### [facility] CLIA [id number] [address] [place] [address] [place] Ketones Ql (U) Trace Abnormal Negative [facility] Comment on above: Order Comment: Speci men Type: URINE SPECIMEN Ordering Facility: [facility] Address: [address] [place], [place] [address] Performed By: #### 6 30-4, 66754-8 #### [facility] CLIA [id number] [address] [place] [address] [place] Leukocyte esterase Test strip Ql (U) Negative Normal Negative [facility] Comment on above: Order Comment: Speci men Type: URINE SPECIMEN Ordering Facility: [facility] Address: [address] [place], [place] [id number] Performed By: #### 6 30-4, 79815-0 #### [facility] CLIA [id number] [address] [place] [address] [place] Nitrite Ql (U) Negative Normal Negative [facility] Comment on above: Order Comment: Speci men Type: URINE SPECIMEN Ordering Facility: [facility] Address: [address] [place] [address] Performed By: #### 6 30-4, 85415-2 #### [facility] CLIA [id number] [address] [place] [address] [place] pH (U) 5.5 [pH] Normal 5.0-8.0 [facility] Comment on above: Order Comment: Speci men Type: URINE SPECIMEN Ordering Facility: [facility] Address: [address] [place] [address] Performed By: #### 6 30-4, 89346-4 #### [facility] CLIA [id number] [address] [place] [address] [place] Protein (U) [Mass/Vol] Negative Normal Negative [facility] Comment on above: Order Comment: Speci men Type: URINE SPECIMEN Ordering Facility: [facility] Address: [address] [place] [address] Performed By: #### 6 30-4, 97105-9 #### [facility] CLIA [id number] [address] [place] [address] [place] RBC LM.HPF (Urine sed) [#/Area] 0-3 /HPF Normal 0-3 /HPF [facility] Comment on above: Order Comment: Speci men Type: URINE SPECIMEN Ordering Facility: [facility] Address: [address] [place] [address] Performed By: #### 6 30-4, 40891-6 #### [facility] CLIA [id number] [address] [place] [address] [place] Specific gravity (U) [Rel density] 1.024 Normal 1.005-1.030 [facility] Comment on above: Order Comment: Speci men Type: URINE SPECIMEN Ordering Facility: [facility] Address: [address] [place] [address] Performed By: #### 6 30-4, 72295-3 #### [facility] CLIA [id number] [address] [place] [address] OF [facility] Urobilinogen Ql (U) 0.2 EU/dL Normal 0.2-1.0 EU/dL [facility] Comment on above: Order Comment: Speci men Type: URINE SPECIMEN Ordering Facility: [facility] Address: [address] [place] [address] Performed By: #### 6 30-4, 56187-0 #### [facility] CLIA [id number] [address] [place] [address] [place] WBC LM.HPF (Urine sed) [#/Area] 0-5 /HPF Normal 0-5 /HPF [facility] Comment on above: Order Comment: Speci men Type: URINE SPECIMEN Ordering Facility: [facility] Address: [address] [place] [address] Performed By: #### 6 30-4, 99156-9 #### [facility] CLIA [id number] [address] [place] [address] [place] Ambulatory Visit Summaryon 0 10-28-2021 Ambulatory Visit Summary NORBERTO WASHINGTON :1940 Visit Date:10/28/2021 Ambulatory Visit Instructions Your Diagnosis BPH with urinary obstruction Nocturia Post-void dribbling Incomplete emptying of bladder Urinary incontinence Tests Performed Urnls Dip Stick Auto w/o Microscopy POC 52096 Your Care Team Attending Physician - Billy [...] Follow Up with Billy Connolly MD, Paul Valdes URO When: Comments: Will schedule Cysto Where: [facility] [address], [place] [address]- Medications What How Much When Instructions Unchanged [...] Urnls Dip Stick Auto w/o Microscopy POC 43796 (10/28/2021) Bilirubin Urine Dipstick - Negative Blood Urine Dipstick - Negative Glucose Urine Dipstick - Negative Ketones Urine Dipstick - Negative Leukocytes Urine Dipstick - Negative Nitrite Urine Dipstick - Negative Protein Urine Dipstick - Negative Specific [place] Urine Dipstick - 1.015 Urine Appearance Urine [...] Urina (more content not included)... Normal [facility] Patient Educationon 10-29-19 Patient Education Urology Benign [...] Follow these instructions at home: ? Take [id number] and prescription medicines only as told by [...] d (more content not included)... Normal [facility] Urology Office/Clinic Noteon 10-28-2021 Urology Office/Clinic Note [...] urine and/or bladder capacity by US- non-imaging 04880 PSA Total Urnls Dip Stick Auto w/o Microscopy POC 86594 Urology Procedure Order 2. Nocturia (R35.1: Nocturia) moderate, Variable 2-5 times per night Ordered: Measure Post Void residual urine and/or bladder capacity by US- non-imaging 79117 PSA Total Urology Procedure Order 3. Post-void dribbling (N39.43: Post-v (more content not included)... Normal [facility] Comment on above: Result Comment: Elec tronically Signed By: Billy Connolly MD, Paul Valdes\.br\Date and Time Signed: 10/28/21 08:47 EDT\.br\Electronically Co-Signed By: Jessie Rivera\.br\Date and Time Co-Signed: 10/28/21 08:39 EDT MICROALBUMIN URINEon 022 Albumin, Urine 5.6 ug/mL Normal Not Estab. [facility] Comment on above: Performed By: #### M ALBLC #### [facility] [address] [place] [address] Dr. Juan Pablo Kaminski US CAROTID ART [...] SAMY TORRES Date: 2021-10-23 17:19 Normal [facility] CBC AUTO DIFFon 10-21-2021 BASO # 0.0 103/ul Normal 0.0-0.1 [facility] Comment on above: Performed By: #### A 1C #### [facility] [address] [address] [address] Juan Pablo Kaminski Basophils/100 WBC (Bld) 0.5 % Normal 0.2-2.0 [facility] Comment on above: Performed By: #### A 1C #### [facility] [address] [place] [address] Dr. Juan Pablo Kaminski EO # 0.3 103/ul Normal 0.0-0.7 [facility] Comment on above: Performed By: #### A 1C #### [facility] [address] [place] [address] Dr. Juan Pablo Kaminski Eosinophils/100 WBC (Bld) 3.6 % Normal 0.9-7.0 [facility] Comment on above: Performed By: #### A 1C #### [facility] [address] [place] [address] Dr. Juan Pablo Kaminski Erythrocyte distribution width (RBC) [Ratio] 11.1 % Normal 11.0-15.0 [facility] Comment on above: Performed By: #### A 1C #### [facility] [address] [place] [address] Dr. Juan Pablo Kaminski Hematocrit (Bld) [Volume fraction] 41.8 % Critically low 42.0-54.0 [facility] Comment on above: Performed By: #### A 1C #### [facility] [address] [place] [address] Dr. Juan Pablo Kaminski Hemoglobin (Bld) [Mass/Vol] 14.1 g/dL Normal 14.0-18.0 [facility] Comment on above: Performed By: #### A 1C #### [facility] [address] [place] [address] Dr. Juan Pablo Kaminski IG # 0.03 10e3/ul Normal 0.00-0.03 [facility] Comment on above: Performed By: #### A 1C #### [facility] [address] [place] [address] Dr. Juan Pablo Kaminski IG % 0.4 % Normal 0.0-0.5 [facility] Comment on above: Performed By: #### A 1C #### [facility] [address] [place] [address] Dr. Juan Pablo Kaminski LYMPH # 2.2 103/ul Normal 1.2-3.8 [facility] Comment on above: Performed By: #### A 1C #### [facility] [address] [place] [address] Dr. Juan Pablo Kaminski Lymphocytes/100 WBC (Bld) 29.4 % Normal 20.5-60.0 [facility] Comment on above: Performed By: #### A 1C #### [facility] [address] [place] [address] Dr. Juan Pablo Kaminski MANUAL DIFF REQ NO Normal [facility] Comment on above: Performed By: #### A 1C #### [facility] [address] [place] [address] Dr. Juan Pablo Kaminski MCH (RBC) [Entitic mass] 31.8 pg Normal 25.9-34.0 [facility] Comment on above: Performed By: #### A 1C #### [facility] [address] [place] [address] Dr. Juan Pablo Kaminski MCHC (RBC) [Mass/Vol] 33.7 g/dL Normal 29.9-35.2 [facility] Comment on above: Performed By: #### A 1C #### [facility] [address] [place] [address] Dr. Juan Pablo Kaminski MCV (RBC) [Entitic vol] 94.1 fL Critically high 80.0-94.0 [facility] Comment on above: Performed By: #### A 1C #### [facility] [address] [place] [address] Dr. uJan Pablo Kaminski MONO # 0.9 103/ul Critically high 0.3-0.8 [facility] Comment on above: Performed By: #### A 1C #### [facility] [address] [place] [address] Dr. Juan Pablo Kaminski Monocytes/100 WBC (Bld) 11.7 % Normal 1.7-12.0 [facility] Comment on above: Performed By: #### A 1C #### [facility] [address] [address] [address] Juan Pablo Kaminski NEUT # 4.0 103/ul Normal 1.4-6.5 [facility] Comment on above: Performed By: #### A 1C #### [facility] [address] [address] [address] Juan Pablo Kaminski Neutrophils/100 WBC (Bld) 54.4 % Normal 43.0-75.0 [facility] Comment on above: Performed By: #### A 1C #### [facility] [address] [address] [address] Juan Pablo Kaminski Platelet mean volume (Bld) [Entitic vol] 8.6 fL Critically low 9.5-13.5 [facility] Comment on above: Performed By: #### A 1C #### [facility] [address] [place] [address] Dr. Juan Pablo Kaminski PLT 231 103/ul Normal 150-450 [facility] Comment on above: Performed By: #### A 1C #### [facility] [address] [place] [address] Dr. Juan Pablo Kaminski RBC 4.44 106/ul Critically low 4.70-6.10 [facility] Comment on above: Performed By: #### A 1C #### [facility] [address] [place] [address] Dr. Juan Pablo Kaminski WBC 7.3 103/ul Normal 4.0-11.0 [facility] Comment on above: Performed By: #### A 1C #### [facility] [address] [place] [address] Dr. Juan Pablo Kaminski DIRECT LDLon 10-21-2021 Cholesterol in LDL [Mass/Vol] 106 mg/dL Normal [facility] Comment on above: Performed By: #### A LT, BMP, DLDL #### [facility] [address] [id number] Juan Pablo Kaminski DLDL NORMAL SEE BELOW Normal [facility] Comment on above: Result Comment: <100 mg/dl OPTIMAL 100 - 129 mg/dl NEAR OR ABOVE OPTIMAL 130 - 159 mg/dl BORDERLINE HIGH 160 - 189 mg/dl HIGH >190 mg/dl VERY HIGH Performed By: #### A LT, BMP, DLDL #### [facility] [address] [place] [address] Dr. Juan Pablo Kaminski GLYCOHEMOGLOBIN A1Con 2021 ADA RECOMMENDATION SEE BELOW Normal [facility] Comment on above: Result Comment: ADA RECOMMENDED LIMIT 4.0 - 6.0 ADA THERAPEUTIC TARGET < 7.0 ACTION SUGGESTED > 7.0 Performed By: #### A 1C #### [facility] [address] [place] [address] Dr. Juan Pablo Kaminski Glucose [Mass/Vol] 120 mg/dL Normal [facility] Comment on above: Performed By: #### A 1C #### [facility] [address] [place] [address] Dr. Juan Pablo Kaminski HbA1c (Bld) [Mass fraction] 5.8 % Normal 4.5-6.2 [facility] Comment on above: Performed By: #### A 1C #### [facility] [address] [place] [address] Dr. Juan Pablo Kaminski PROF CHEM 8 (BAS METB)on Anion gap [Moles/Vol] 12.7 mmol/L Normal [facility] Comment on above: Performed By: #### A 1C #### [facility] [address] [place] [address] Dr. Juan Pablo Kaminski Calcium [Mass/Vol] 8.7 mg/dL Normal 8.5-10.1 [facility] Comment on above: Performed By: #### A 1C #### [facility] [address] [place] [address] Dr. Juan Pablo Kaminski Chloride [Moles/Vol] 98 mmol/L Normal 98-107 [facility] Comment on above: Performed By: #### A 1C #### [facility] [address] [place] [address] Dr. Juan Pablo Kaminski CO2 [Moles/Vol] 28.0 mmol/L Normal 21.0-32.0 [facility] Comment on above: Performed By: #### A 1C #### [facility] [address] [place] [address] Dr. Juan Pablo Kaminski Creatinine [Mass/Vol] 1.07 mg/dL Normal 0.70-1.30 [facility] Comment on above: Performed By: #### A 1C #### [facility] [address] [place] [address] Dr. Juan Pablo Kaminski EGFR-AF SWISS >60 Normal >=60 [facility] Comment on above: Performed By: #### A 1C #### [facility] [address] [place] [address] Dr. Juan Pablo Kaminski EGFR-NON AF SWISS >60 Normal >=60 [facility] Comment on above: Performed By: #### A 1C #### [facility] [address] [place] [address] Dr. Juan Pablo Kaminski Glucose [Mass/Vol] 133 mg/dL Critically high 74-106 T [facility] Comment on above: Performed By: #### A 1C #### [facility] [address] [place] [address] Dr. Juan Pablo Kaminski Potassium [Moles/Vol] 4.7 mmol/L Normal 3.5-5.1 [facility] Comment on above: Performed By: #### A 1C #### [facility] [address] [place] [address] Dr. Juan Pablo Kaminski Sodium [Moles/Vol] 134 mmol/L Critically low 136-145 Th [facility] Comment on above: Performed By: #### A 1C #### [facility] [address] [place] [address] Dr. Juan Pablo Kaminski Urea nitrogen [Mass/Vol] 17.0 mg/dL Normal 7.0-18.0 [facility] Comment on above: Performed By: #### A 1C #### [facility] [address] [place] [address] Dr. Juan Pablo Kaminski Urea nitrogen/Creatinine [Mass ratio] 15.9 mg/mg Normal [facility] Comment on above: Performed By: #### A 1C #### [facility] [address] [place] [address] Dr. Juan Pablo Kaminski [facility] 10-21-2021 ALT [Catalytic activity/Vol] 31 U/L Normal 16-63 [facility] Comment on above: Performed By: #### A 1C #### [facility] [address] [address] [address] Juan Pablo Kaminski GLYCOHEMOGLOBIN A1Con 2021 ADA RECOMMENDATION SEE BELOW Normal [facility] Comment on above: Result Comment: ADA RECOMMENDED LIMIT 4.0 - 6.0 ADA THERAPEUTIC TARGET < 7.0 ACTION SUGGESTED > 7.0 Performed By: #### A 1C #### [facility] [address] [address] [address] Juan Pablo Kaminski Glucose [Mass/Vol] 131 mg/dL Normal [facility] Comment on above: Performed By: #### A 1C #### [facility] [address] [address] [address] Juan Pablo Kaminski HbA1c (Bld) [Mass fraction] 6.2 % Normal 4.5-6.2 [facility] Comment on above: Performed By: #### A 1C #### [facility] [address] [address] [address] Juan Pablo Kaminski Vital Signs Date Time Vital Sign Value Performing Clinician Denis coles 07-09-2023 13:38-0400 Body height 190.5 cm DO Campbell Ball Work Phone: [facility] 07-09-2023 13:38-0400 Body mass index (BMI) [Ratio] 28 kg/m2 DO Campbell Ball Work Phone: [facility] 07-09-2023 13:38-0400 Body weight 101.6 kg DO Campbell Ball Work Phone: [facility] 07-09-2023 13:38-0400 Diastolic blood pressure 60 mm[Hg] DO Campbell Ball Work Phone: [facility] 07-09-2023 13:38-0400 Heart rate 78 /min DO Campbell Ball Work Phone: [facility] 07-09-2023 13:38-0400 Systolic blood pressure 143 mm[Hg] DO Campbell Ball Work Phone: [facility] 06-23-2023 09:16-0400 Body height 190.5 cm DO Campbell Ball Work Phone: [facility] 06-23-2023 09:16-0400 Body mass index (BMI) [Ratio] 28 kg/m2 DO Campbell Ball Work Phone: [facility] 06-23-2023 09:16-0400 Body weight 101.6 kg DO Campbell Ball Work Phone: [facility] 06-23-2023 09:16-0400 Diastolic blood pressure 64 mm[Hg] DO Campbell Ball Work Phone: [facility] 06-23-2023 09:16-0400 Heart rate 69 /min DO Campbell Ball Work Phone: [facility] 06-23-2023 09:16-0400 Respiratory rate 16 /min DO Campbell Ball Work Phone: [facility] 06-23-2023 09:16-0400 Systolic blood pressure 147 mm[Hg] DO Campbell Ball Work Phone: [facility] 05-21-2023 10:53-0500 Body height 190.5 cm DO Campbell Ball Work Phone: [facility] 05-21-2023 10:53-0500 Body mass index (BMI) [Ratio] 27 kg/m2 DO Campbell Ball Work Phone: [facility] 05-21-2023 10:53-0500 Body weight 98.03 kg DO Campbell Ball Work Phone: [facility] 05-21-2023 10:53-0500 Diastolic blood pressure 77 mm[Hg] DO Campbell Ball Work Phone: [facility] 05-21-2023 10:53-0500 Heart rate 76 /min DO Campbell Ball Work Phone: [facility] 05-21-2023 10:53-0500 Respiratory rate 12 /min DO Campbell Ball Work Phone: [facility] 05-21-2023 10:53-0500 Systolic blood pressure 133 mm[Hg] DO Campbell Ball Work Phone: [facility] 05-15-2023 13:10-0500 Body temperature 98.6 [degF] DO Campbell Ball Work Phone: [facility] 05-15-2023 13:10-0500 Diastolic blood pressure 90 mm[Hg] DO Campbell Ball Work Phone: [facility] 05-15-2023 13:10-0500 Heart rate 90 /min DO Campbell Ball Work Phone: [facility] 05-15-2023 13:10-0500 Respiratory rate 18 /min DO Campbell Ball Work Phone: [facility] 05-15-2023 13:10-0500 SaO2% (BldA) [Mass fraction] 97 % DO Campbell Ball Work Phone: [facility] 05-15-2023 13:10-0500 Systolic blood pressure 181 mm[Hg] DO Campbell Ball Work Phone: [facility] 05-15-2023 10:56-0500 Body height 190.5 cm DO Campbell Ball Work Phone: [facility] 05-15-2023 10:56-0500 Body weight 99.9 kg DO Campbell Ball Work Phone: [facility] 04-21-2023 14:30-0500 Body height 190.5 cm Campbell Ball Other [facility] Other 04-21-2023 14:30-0500 Body mass index (BMI) [Ratio] 28.07 kg/m2 Campbell Ball Other [facility] Other 04-21-2023 14:30-0500 Body weight 101.88 kg Campbell Ball Other [facility] Other 04-21-2023 14:30-0500 Diastolic blood pressure 68 mm[Hg] Campbell Ball Other [facility] Other 04-21-2023 14:30-0500 Respiratory rate 12 /min Campbell Ball Other [facility] Other 04-21-2023 14:30-0500 Systolic blood pressure 129 mm[Hg] Campbell Ball Other [facility] Other 03-17-2023 10:30-0500 Body height 190.5 cm Campbell Ball Other [facility] Other 03-17-2023 10:30-0500 Body mass index (BMI) [Ratio] 27.55 kg/m2 Campbell Ball Other [facility] Other 03-17-2023 10:30-0500 Body weight 99.97 kg Campbell Ball Other [facility] Other 03-17-2023 10:30-0500 Diastolic blood pressure 67 mm[Hg] Campbell Ball Other [facility] Other 03-17-2023 10:30-0500 Respiratory rate 12 /min Campbell Ball Other [facility] Other 03-17-2023 10:30-0500 Systolic blood pressure 159 mm[Hg] Campbell Ball Other [facility] Other 02-23-2023 09:30-0500 Body height 190.5 cm Campbell Ball Other [facility] Other 02-23-2023 09:30-0500 Body mass index (BMI) [Ratio] 28.02 kg/m2 Campbell Ball Other [facility] Other 02-23-2023 09:30-0500 Body weight 101.7 kg Campbell Ball Other [facility] Other 02-23-2023 09:30-0500 Diastolic blood pressure 78 mm[Hg] Campbell Ball Other [facility] Other 02-23-2023 09:30-0500 Respiratory rate 12 /min Campbell Ball Other [facility] Other 02-23-2023 09:30-0500 Systolic blood pressure 157 mm[Hg] Campbell Ball Other [facility] Other 02-19-2023 10:45-0500 Body height 190.5 cm Campbell Ball Other [facility] Other 02-19-2023 10:45-0500 Body mass index (BMI) [Ratio] 28 kg/m2 Campbell Ball Other [facility] Other 02-19-2023 10:45-0500 Body weight 101.61 kg Campbell Ball Other [facility] Other 02-19-2023 10:45-0500 Diastolic blood pressure 72 mm[Hg] Campbell Ball Other [facility] Other 02-19-2023 10:45-0500 Respiratory rate 12 /min Campbell Ball Other [facility] Other 02-19-2023 10:45-0500 Systolic blood pressure 144 mm[Hg] Campbell Ball Other [facility] Other 02-02-2023 13:37-0500 Body weight 102.06 kg Leticia Milian APRN.[facility] Work Phone: [facility] 02-02-2023 13:37-0500 Diastolic blood pressure 70 mm[Hg] Leticia Pheba RUSSET REPAIRER.RESEARCH PHLEBOTOMIST Work Phone: [facility] 02-02-2023 13:37-0500 Heart rate 65 /min Leticia Rukhsana RUSSET REPAIRER.RESEARCH PHLEBOTOMIST Work Phone: [facility] 02-02-2023 13:37-0500 Systolic blood pressure 146 mm[Hg] Leticia Rukhsana RUSSET REPAIRER.RESEARCH PHLEBOTOMIST Work Phone: [facility] 09-22-2022 12:15-0400 Body height 190.5 cm Campbell Ball Other [facility] Other 09-22-2022 12:15-0400 Diastolic blood pressure 82 mm[Hg] Campbell Ball Other [facility] Other 09-22-2022 12:15-0400 Systolic blood pressure 135 mm[Hg] Campbell Ball Other [facility] Other 09-17-2022 09:00-0400 Body height 190.5 cm Campbell Ball Other [facility] Other 09-17-2022 09:00-0400 Body mass index (BMI) [Ratio] 27.57 kg/m2 Campbell Ball Other [facility] Other 09-17-2022 09:00-0400 Body weight 100.06 kg Campbell Ball Other [facility] Other 09-17-2022 09:00-0400 Diastolic blood pressure 62 mm[Hg] Campbell Ball Other [facility] Other 09-17-2022 09:00-0400 Respiratory rate 12 /min Campbell Ball Other [facility] Other 09-17-2022 09:00-0400 Systolic blood pressure 128 mm[Hg] Campebll Ball Other [facility] Other 06-18-2022 10:00-0400 Body height 190.5 cm Campbell Ball Other [facility] Other 06-18-2022 10:00-0400 Body mass index (BMI) [Ratio] 28.02 kg/m2 Campbell Ball Other [facility] Other 06-18-2022 10:00-0400 Body weight 101.7 kg Campbell Ball Other [facility] Other 06-18-2022 10:00-0400 Diastolic blood pressure 62 mm[Hg] Campbell Ball Other [facility] Other 06-18-2022 10:00-0400 Respiratory rate 12 /min Campbell Ball Other [facility] Other 06-18-2022 10:00-0400 Systolic blood pressure 119 mm[Hg] Campbell Ball Other [facility] Other 04-08-2022 12:00-0500 Body height 190.5 cm Campbell Ball Other [facility] Other 04-08-2022 12:00-0500 Body mass index (BMI) [Ratio] 27.82 kg/m2 Campbell Ball Other [facility] Other 04-08-2022 12:00-0500 Body temperature 97.1 [degF] Campbell Ball Other [facility] Other 04-08-2022 12:00-0500 Body weight 100.97 kg Campbell Ball Other [facility] Other 04-08-2022 12:00-0500 Diastolic blood pressure 68 mm[Hg] Campbell Ball Other [facility] Other 04-08-2022 12:00-0500 SaO2% (BldA) [Mass fraction] 97 % Campbell Ball Other [facility] Other 04-08-2022 12:00-0500 Systolic blood pressure 124 mm[Hg] Campbell Ball Other [facility] Other 03-20-2022 10:00-0500 Body height 190.5 cm Campbell Ball Other [facility] Other 03-20-2022 10:00-0500 Body mass index (BMI) [Ratio] 27.95 kg/m2 Campbell Ball Other [facility] Other 03-20-2022 10:00-0500 Body weight 101.42 kg Campbell Ball Other [facility] Other 03-20-2022 10:00-0500 Diastolic blood pressure 60 mm[Hg] Campbell Ball Other [facility] Other 03-20-2022 10:00-0500 Respiratory rate 12 /min Campbell Ball Other [facility] Other 03-20-2022 10:00-0500 Systolic blood pressure 112 mm[Hg] Campbell Ball Other [facility] Other 01-08-2022 08:47-0400 Body weight 97.52 kg Leonard Dugan MD Work Phone: [facility] 01-08-2022 08:47-0400 Diastolic blood pressure 61 mm[Hg] Leonard Dugan MD Work Phone: [facility] 01-08-2022 08:47-0400 Heart rate 72 /min Leonard Dugan MD Work Phone: [facility] 01-08-2022 08:47-0400 Systolic blood pressure 139 mm[Hg] Leonard Dugan MD Work Phone: [facility] 12-26-2021 08:32-0400 Body temperature 98 [degF] DO Campbell Ball Work Phone: [facility] 12-26-2021 08:32-0400 Diastolic blood pressure 62 mm[Hg] DO Campbell Ball Work Phone: [facility] 12-26-2021 08:32-0400 Heart rate 75 /min DO Campbell Ball Work Phone: [facility] 12-26-2021 08:32-0400 Respiratory rate 18 /min DO Campbell Ball Work Phone: [facility] 12-26-2021 08:32-0400 SaO2% (BldA) [Mass fraction] 98 % DO Campbell Ball Work Phone: [facility] 12-26-2021 08:32-0400 Systolic blood pressure 146 mm[Hg] DO Campbell Ball Work Phone: [facility] 12-17-2021 16:22-0400 Body height 190.5 cm DO Campbell Ball Work Phone: [facility] 12-17-2021 16:22-0400 Body weight 97.52 kg DO Campbell Ball Work Phone: [facility] 12-17-2021 16:19-0400 Body temperature 98.4 [degF] DO Campbell Ball Work Phone: [facility] 12-17-2021 16:19-0400 Diastolic blood pressure 63 mm[Hg] DO Campbell Ball Work Phone: [facility] 12-17-2021 16:19-0400 Heart rate 66 /min DO Campbell Ball Work Phone: [facility] 12-17-2021 16:19-0400 Respiratory rate 16 /min DO Campbell Ball Work Phone: [facility] 12-17-2021 16:19-0400 SaO2% (BldA) [Mass fraction] 96 % DO Campbell Ball Work Phone: [facility] 12-17-2021 16:19-0400 Systolic blood pressure 135 mm[Hg] DO Campbell Ball Work Phone: [facility] 12-16-2021 14:41-0400 Diastolic blood pressure 62 mm[Hg] Leonard Dugan MD Work Phone: [facility] 12-16-2021 14:41-0400 Heart rate 69 /min Leonard Dugan MD Work Phone: [facility] 12-16-2021 14:41-0400 Respiratory rate 16 /min Leonard Dugan MD Work Phone: [facility] 12-16-2021 14:41-0400 Systolic blood pressure 141 mm[Hg] Leonard Dugan MD Work Phone: [facility] 12-11-2021 18:25-0400 Body temperature 97.5 [degF] DO Campbell Ball Work Phone: [facility] 12-11-2021 18:25-0400 Diastolic blood pressure 88 mm[Hg] DO Campbell Ball Work Phone: [facility] 12-11-2021 18:25-0400 Heart rate 67 /min DO Campbell Ball Work Phone: [facility] 12-11-2021 18:25-0400 Respiratory rate 20 /min DO Campbell Ball Work Phone: [facility] 12-11-2021 18:25-0400 SaO2% (BldA) [Mass fraction] 99 % DO Campbell Ball Work Phone: [facility] 12-11-2021 18:25-0400 Systolic blood pressure 175 mm[Hg] DO Campbell Ball Work Phone: [facility] 12-11-2021 16:57-0400 Body height 190.5 cm DO Campbell Ball Work Phone: [facility] 12-11-2021 16:57-0400 Body weight 98.5 kg DO Campbell Ball Work Phone: [facility] 12-10-2021 10:50-0400 Body weight 95.25 kg Nurse Emelia Work Phone: [facility] 12-10-2021 10:50-0400 Diastolic blood pressure 80 mm[Hg] Nurse Emelia Work Phone: [facility] 12-10-2021 10:50-0400 Heart rate 59 /min Nurse Emelia Work Phone: [facility] 12-10-2021 10:50-0400 Systolic blood pressure 152 mm[Hg] Nurse Emelia Work Phone: [facility] 12-09-2021 14:27-0400 Body weight 95.25 kg [employer] [facility] Work Phone: [facility] 12-09-2021 14:27-0400 Diastolic blood pressure 68 mm[Hg] [employer] Work Phone: [facility] 12-09-2021 14:27-0400 Heart rate 70 /min [employer] Work Phone: [facility] 12-09-2021 14:27-0400 Systolic blood pressure 164 mm[Hg] [employer] Work Phone: [facility] 11-12-2021 11:23-0400 Body weight 96.16 kg Leonard Dugan MD Work Phone: [facility] 11-12-2021 11:23-0400 Diastolic blood pressure 73 mm[Hg] Leonard Dugan MD Work Phone: [facility] 11-12-2021 11:23-0400 Heart rate 56 /min Leonard Dugan MD Work Phone: [facility] 11-12-2021 11:23-0400 Systolic blood pressure 162 mm[Hg] Leonard Dugan MD Work Phone: [facility] Encounters Encounter Date Encounter Type Care Provider Facility Start: 07-12-2023 End: 07-12-2023 ambulatory Jhon Tejada Facility:[facility] Start: 07-12-2023 End: 07-12-2023 ambulatory DO Campbell Ball Work Phone: [facility] Work Phone: Start: 07-12-2023 End: 07-12-2023 Departed Referred DO Campbell Ball Work Phone: [facility] Start: 07-09-2023 End: 07-09-2023 ambulatory DO Campbell Ball Work Phone: [facility] Work Phone: Start: 07-09-2023 End: 07-09-2023 Patient encounter procedure DO Campbell Ball Work Phone: [facility] Work Phone: Start: 07-06-2023 Non-patient / Non-visit DO Lenin frank Ball Work Phone: [facility] Work Phone: Start: 06-23-2023 End: 06-23-2023 ambulatory DO Campbell Ball Work Phone: [facility] Work Phone: Start: 06-23-2023 End: 06-23-2023 Patient encounter procedure DO Campbell Ball Work Phone: [facility] Work Phone: Start: 05-31-2023 Non-patient / Non-visit DO Lenin monika Ball Work Phone: [facility] Work Phone: Start: 05-21-2023 End: 05-21-2023 Patient encounter procedure DO Campbell Ball Work Phone: [facility] Work Phone: Start: 05-15-2023 End: 05-15-2023 Emergency department patient visit Low Mcdanielzack Facility:[facility] Start: 05-15-2023 End: 05-15-2023 Emergency department patient visit DO Campbell Naranjo Work Phone: [facility] Work Phone: Start: 05-03-2023 Non-patient / Non-visit DO Lenin Naranjo Work Phone: [facility] Work Phone: Start: 04-30-2023 Non-patient / Non-visit DO Lenin Naranjo Work Phone: [facility] Work Phone: Start: 04-21-2023 End: 04-21-2023 ambulatory Campbell Ball Other [facility] Other Start: 04-21-2023 Transitional care manage srvc 14 day discharge Campbell Ball [facility] Start: 04-19-2023 End: 04-19-2023 ambulatory Campbell Ball Other [facility] Other Start: 04-19-2023 Telephone encounter Campbell Ball [facility] Start: 04-15-2023 End: 04-15-2023 ambulatory Campbell Ball Other [facility] Other Start: 04-15-2023 Telephone encounter Campbell Ball [facility] Start: 03-17-2023 End: 03-17-2023 ambulatory Campbell Ball Other [facility] Other Start: 03-17-2023 Transitional care manage srvc 14 day discharge Campbell Ball [facility] Start: 03-04-2023 End: 03-04-2023 ambulatory Campbell Ball Other [facility] Other Start: 03-04-2023 Telephone encounter Campbell Ball [facility] Start: 02-23-2023 End: 02-23-2023 ambulatory Campbell Naranjo Other [facility] Other Start: 02-23-2023 Office outpatient vi sit 15 minutes Campbell Naranjo [facility] Start: 02-23-2023 Telephone encounter Campbell SINGH [facility] Start: 02-19-2023 End: 02-19-2023 ambulatory Campbell Naranjo Other [facility] Other Start: 02-19-2023 Office outpatient vi sit 15 minutes Campbell Naranjo [facility] Start: 02-02-2023 End: 02-02-2023 ambulatory LETICIA MILIAN Facility:[facility] Start: 02-02-2023 End: 02-02-2023 Patient encounter procedure Leticia Milian RUSSET REPAIRER.RESEARCH PHLEBOTOMIST Work Phone: Urology Comment on above: BPH with obstruction /lower urinary tract symptoms (Primary Dx); Recurrent UTI; Weak urinary stream Start: 01-19-2023 End: 01-19-2023 ambulatory LETICIA MILIAN Facility:[facility] Start: 01-13-2023 End: 01-13-2023 Emergency department patient visit Low Carter Facility:[facility] Start: 01-13-2023 End: 01-13-2023 Emergency department patient visit DO Campbell Naranjo Work Phone: [facility] Work Phone: Start: 12-21-2022 End: 12-21-2022 ambulatory Campbell Naranjo Other [facility] Other Start: 12-21-2022 Telephone encounter Campbell SINGH G [facility] Start: 09-22-2022 End: 09-22-2022 ambulatory Campbell Naranjo Other [facility] Other Start: 09-22-2022 Office outpatient vi sit 15 minutes Campbell Naranjo [facility] Start: 09-20-2022 End: 09-20-2022 ambulatory Cornell Baptiste Other [facility] Other Start: 09-20-2022 Encounter by gabbi Baptiste [facility] [place], operated by [facility] Start: 09-17-2022 End: 09-17-2022 ambulatory Campbell Naranjo Other [facility] Other Start: 09-17-2022 Office outpatient vi sit 25 minutes Campbell Naranjo [facility] Start: 09-15-2022 End: 09-15-2022 ambulatory Cornell Baptiste Other [facility] Other Start: 09-15-2022 Encounter by gabbi Baptiste [facility] [place], operated by [facility] Start: 07-28-2022 End: 07-28-2022 ambulatory LETICIA MILIAN Facility:[facility] Start: 07-20-2022 End: 07-20-2022 ambulatory LETICIA MILIAN Facility:[facility] Start: 06-25-2022 End: 06-26-[address] CAMPBELL NARANJO Facility:[facility] Start: 06-18-2022 End: 06-18-2022 ambulatory Campbell Naranjo Other [facility] Other Start: 06-18-2022 Office outpatient vi sit 25 minutes Campbell Naranjo [facility] Start: 06-02-2022 End: 06-03-[address] CAMPBELL NARANJO Facility:[facility] Start: 04-08-2022 End: 04-08-2022 ambulatory Campbell Naranjo Other [facility] Other Start: 04-08-2022 Office outpatient vi sit 15 minutes Campbell Naranjo [facility] Start: 03-24-2022 End: 03-24-2022 ambulatory Campbell Naranjo Other [facility] Other Start: 03-24-2022 Telephone encounter Campbell Naranjo [facility] Start: 03-20-2022 Office outpatient vi sit 25 minutes Campbell Naranjo [facility] Start: 03-20-2022 End: 03-21-[address] CAMPBELL NARANJO [facility] Other Start: 01-08-2022 End: 01-08-2022 Patient encounter procedure Leonard Dugan MD Work Phone: Urology Comment on above: Chronic epididymitis (Primary Dx); Left hydrocele; Weak urinary stream; BPH without obstruction/lower urinary tract symptoms; Epididymitis Start: 01-07-2022 Refill Leonard Dugan MD Work Phone: Urology Comment on above: Refill Request Start: 12-26-2021 End: 12-26-2021 ambulatory DO Campbell Quentin Work Phone: [facility] Work Phone: Start: 12-26-2021 End: 12-26-2021 Discharged Recurring DO Campbell Naranjo Work Phone: [facility] - O/P Start: 12-25-2021 End: 12-26-[address] CAMPBELL NARANJO Facility: Start: 12-17-2021 End: 12-17-2021 Emergency department patient visit DO Campbell Naranjo Work Phone: [facility] Start: 12-16-2021 End: 12-16-2021 Patient encounter procedure Leonard Dugan MD Work Phone: Urology Comment on above: Retention of urine ( Primary Dx); Flaccid bladder Start: 12-15-2021 Telephone encounter Leticia puentes APRN.CNP Work Phone: Urology Comment on above: Patient Update Start: 12-11-2021 End: 12-11-2021 Emergency department patient visit DO Campbell Naranjo Work Phone: [facility] Start: 12-11-2021 Telephone encounter Leonard Dugan MD Work Phone: Urology Comment on above: Patient Update Start: 12-10-2021 End: 12-10-2021 Nursing evaluation of patient and report Nurse Urol [facility] Emelia Work Phone: Urology Comment on above: Urinary tract infect ion without hematuria, site unspecified (Primary Dx); Feeling of incomplete bladder emptying; Benign prostatic hyperplasia with urinary retention Start: 12-09-2021 End: 12-09-2021 Nursing evaluation of patient and report [employer] Adrianna Work Phone: Urology Comment on above: Urinary frequency (P rimary Dx); Urinary urgency; Urinary straining; Feeling of incomplete bladder emptying Start: 12-08-2021 Telephone encounter Leonard Dugan MD Work Phone: Urology Comment on above: Appointment (Resched ule catheter change) Start: 11-26-2021 End: 11-27-2021 Emergency department patient visit CAMPBELL NARANJO Facility:[facility] Start: 11-21-2021 Telephone encounter Leonard [...] 11-07-2021 End: 11-07-2021 Emergency department patient visit RNA HOUSTON JR Facility:[facility] Start: 10-23-2021 End: 10-24-[address] CAMPBELL NARANJO Facility:[facility] Start: 10-21-2021 End: 10-22-[address] CAMPBELL NARANJO Facility:[facility] Start: 10-20-2021 Adult health examination Campbell Naranjo Other [facility] Other Start: 07-17-2021 End: 07-18-[address] CAMPBELL NARANJO Facility:[facility] Start: 01-09-2020 End: 01-09-2020 Pre-procedure evaluation check Campbell Naranjo Other [facility] Other Procedures Date Procedure Procedure Detail Performing [...] microalbumin profile DTaP,Tdap,Td Vaccine (3 - Tdap) [facility] Start: 11-13-2022 Covid-19 Vaccine () Covid-19 Vaccine () [facility] Start: 03-15-2022 Advance Directive Discussion Advance Directive Discussion [facility] Start: 03-15-2022 Depression Assessment Depression Ass essment [facility] Start: 01-08-2022 End: 03-10-2022 Bacteria identified in Urine by Culture URINE CULTURE Microbiology Routine Left hydrocele Chronic epididymitis Weak urinary stream BPH without obstruction/lower urinary tract symptoms Epididymitis Expected: 01/08/2022 (Approximate), Expires: 03/10/2022 [facility] Work Phone: Comment on above: Expected: 01/08/2022 (Approximate), Expires: 03/10/2022 Start: 01-08-2022 End: 03-10-2022 URINALYSIS, REFLEX MICROSCOPIC URINALYSIS, REFLEX MICROSCOPIC Lab Routine Left hydrocele Chronic epididymitis Weak urinary stream BPH without obstruction/lower urinary tract symptoms Epididymitis Expected: 01/08/2022 (Approximate), Expires: 03/10/2022 [facility] Work Phone: Comment on above: Expected: 01/08/2022 (Approximate), Expires: 03/10/2022 Start: 12-10-2021 End: 02-09-2022 Bacteria identified in Urine by Culture URINE CULTURE Microbiology Routine Urinary tract infection without hematuria, site unspecified Expected: 12/10/2021, Expires: 02/09/2022 [facility] Work Phone: Comment on above: Expected: 12/10/2021 , Expires: 02/09/2022 Start: 11-13-2021 Influenza vaccination INFLUENZA (#1) [facility] Start: 11-12-2021 URODYNAMICS URODYNAMICS Pr ocedures Routine 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 Expected: 11/12/2021 (Approximate) [facility] Work Phone: Comment on above: Expected: 11/12/2021 (Approximate) Start: 08-11-2021 COVID-19 VACCINE (5 - Booster for Pfizer series) COVID-19 VACCINE (5 - Booster for Pfizer series) [facility] Start: 03-15-2021 ADVANCE DIRECTIVE DISCUSSION ADVANCE DIRECTIVE DISCUSSION [facility] Start: 03-15-2021 DEPRESSION ASSESSMENT DEPRESSION ASS ESSMENT [facility] Start: 05-26-2012 3 comp foot exam completed DIABETIC FOOT EXAM [facility] Start: 1998 Hepatitis B Vaccine (1 of 3 - Risk 3-dose series) Hepatitis B Vaccine (1 of 3 - Risk 3-dose series) [facility] Start: 1998 RSV Vaccine (1 - 1-d ose 60+ series) RSV Vaccine (1 - 1-dose 60+ series) [facility] Start: 1988 SHINGRIX VACCINE (1 of 2) SHINGRIX VACCINE (1 of 2) [facility] Start: 1957 Urine microalbumin profile DTAP,TDAP,TD (1 - Tdap) [facility] Start: 1956 Hepatitis B surface antibody level LDL CHOLESTEROL [facility] Start: 1948 Hepatitis B screening URINE ALBUMIN:CREATININE RATIO [facility] Start: 1948 Hepatitis C antibody , confirmatory test DILATED RETINAL EXAM [facility] Start: 1944 PNEUMOCOCCAL: 65+ (1 - PCV) PNEUMOCOCCAL: 65+ (1 - PCV) [facility] Start: 1943 Hemoglobin A1c/Hemoglobin.total in Blood HBA1C [facility] Bacteria identified in Urine by Culture [facility] End: 02-02-2024 Bacteria identified in Urine by Culture URINE CULTURE Microbiology Routine Recurrent UTI 5 Occurrences starting 02/02/2023 until 02/02/2024 [facility] Work Phone: Comment on above: 5 Occurrences starti ng 02/02/2023 until 02/02/2024 Patient Education [facility] Work Phone: Patient referral [facility] Work Phone: End: 01-14-2024 Urinalysis complete panel - Urine URINALYSIS, WITH MICROSCOPIC Lab Routine Recurrent UTI 5 Occurrences starting 02/02/2023 until 01/14/2024 [facility] Work Phone: Comment on above: 5 Occurrences starti ng 02/02/2023 until 01/14/2024 [facility] Immunizations Immunization Date Immunization Notes Care Provider Jens eid 12-01-2022 influenza virus vaccine, unspecified formulation DO Campbell Naranjo Work Phone: [facility] 12-01-2022 influenza, high dose seasonal, preservative-free Campbell Naranjo Other [facility] Other 12-19-2021 influenza virus vaccine, split virus (incl. purified surface antigen) Campbell Naranjo Other [facility] Other 12-19-2021 influenza virus vaccine, unspecified formulation DO Campbell Naranjo Work Phone: [facility] 12-10-2020 influenza virus vaccine, split virus (incl. purified surface antigen) Campbell Naranjo Other [facility] Other 12-10-2020 influenza virus vaccine, unspecified formulation DO Campbell Naranjo Work Phone: [facility] 01-09-2020 influenza virus vaccine, split virus (incl. purified surface antigen) Campbell Naranjo Other [facility] Other 01-09-2020 influenza virus vaccine, unspecified formulation DO Campbell Naranjo Work Phone: [facility] 01-14-2018 influenza virus vaccine, split virus (incl. purified surface antigen) Campbell Naranjo Other [facility] Other 01-14-2018 influenza virus vaccine, unspecified formulation DO Campbell Naranjo Work Phone: [facility] 12-30-2016 influenza virus vaccine, split virus (incl. purified surface antigen) Campbell Naranjo Other [employer] Other 12-30-2016 influenza virus vaccine, unspecified formulation DO Campbell Naranjo Work Phone: [facility] 03-16-2016 influenza virus vaccine, split virus (incl. purified surface antigen) Campbell Naranjo Other [facility] Other 03-16-2016 influenza virus vaccine, unspecified formulation DO Campbell [employer] Work Phone: [facility] 05-01-2015 pneumococcal conjuga te vaccine, 13 valent Campbell Naranjo Other [facility] 05-01-2015 pneumococcal Conjuga te, unspecified formulation; Translations: [Need for prophylactic vaccination against Streptococcus pneumoniae (pneumococcus)] Campbell Naranjo Other [facility] Other 12-28-2012 tetanus and diphther ia toxoids, adsorbed, preservative free, for adult use (5 Lf of tetanus toxoid and 2 Lf of diphtheria toxoid) Campbell Naranjo Other [facility] 01-28-2012 diphtheria, tetanus toxoids and acellular pertussis vaccine, unspecified formulation Campbell Naranjo Other [facility] 01-20-2012 pneumococcal polysaccharide vaccine, 23 valent Campbell Naranjo Other [facility] 05-18-2011 pneumococcal polysaccharide vaccine, 23 valent Campbell Naranjo Other [facility] Payers Date Payer Category Payer Self-pay 2016 Unknown KRISTIN FOSTER ME DICARE SUPPLEMENT [id number] 2016-Present [phone] [address] [place] [address] Indemnity [id number] 2003 Medicare MEDICARE MEDICAR E A AND B [id number] 2003-Present [phone] [place] [address] Medicare [id number] 1959 Medicare [id number] 1959 Medicare [id number] 1938 Unknown [id number] 3 1938 Unknown [id number] 3 1938 Unknown [id number] 3 1938 Unknown [id number] 3 1938 Unknown [id number] 3 1938 Unknown [id number] 3 1938 Unknown [id number] 3 1938 Unknown [id number] 3 Medicare Medicare Outpatient [id number] Unknown Pending Sale To [facility] [employer] [id number] Unknown [id number] 1 Unknown [id number] 1 Unknown [id number] 1 Social History Date Type Detail Facility Start: 10-24-2009 End: 12-16-2021 Tobacco smoking status NHIS Ex-smoker [facility] End: 03-15-1971 History of tobacco use Current smoker [facility] End: 03-15-1971 History of tobacco use Cigarette Smoker [facility] Start: 10-24-2009 End: 07-28-2022 Cigarettes smoked current (pack per day) - Reported 1.5 [facility] Start: 11-07-2021 End: 12-16-2021 Alcohol intake Current drinker of alcohol (finding) [facility] Start: 1940 Sex Assigned At Not on file [facility] Start: 10-28-2021 End: 01-08-2022 Exposure to SARS-CoV-2 (event) Not sure [facility] Start: 12-11-2021 End: 05-15-2023 Tobacco smoking status SDIS Never smoked tobacco (finding) [facility] Start: 1940 Sex Assigned At Male F [facility] Start: 12-16-2021 Tobacco use and exposure Smokeless tobacco non-user [facility] Start: 12-16-2021 End: 07-28-2022 Sex Assigned At [facility] [employer] Other National Score (1-10 0), lower number is lower risk 61 [facility] Medical Equipment Procedure Code Equipment Code [...] - recommend Picc line and IV antibiotics [facility] Other 01-03-2024 Evaluation note* Encounter Date Diagnosis [...] to restart Amlodipine. Continue PAUL for now. [facility] Other 12-12-2023 Evaluation note* Encounter Date Diagnosis [...] and inserts to prevent callus formation.Fall precautions. [facility] Other 12-08-2023 Evaluation note* Encounter Date Diagnosis [...] ulcers. Recommend routine foot care w/ Podiatry [facility] Other 11-21-2023 NoteHNO ID: [id number] Author: Leticia Milian APRN.RESEARCH PHLEBOTOMIST Service: ? Author Type: Nurse Practitioner Type: Progress Notes Filed: 02/02/2023 2:13 PM Note Text: Norberto Washington [address] [facility] [address] HISTORY OF PRESENT ILLNESS: Seen 07/28/22 for [...] see lab Duration: BPH w obs/luts, UTI [employer] SYMPTOMS SCORE. 1. INCOMPLETE EMPTYING [...] only if s (more content not included)... [facility]11-21-2023 Miscellaneous Notes* Addendum Note - Leticia Milian APRN.CNP - 02/02/2023 2:16 PM ESTAddended by: LETICIA MILIAN on: 02/02/2023 02:16 PM Modules accepted: Orders documented in this encounterOhio[facility]11-21-2023 History of Present illness Narrative* Leticia Milian, RUSSET REPAIRER.RESEARCH PHLEBOTOMIST - 02/02/2023 1:40 PM EST Norberto Washington [address] [facility] [address] HISTORY OF PRESENT ILLNESS: Seen 07/28/22 for [...] see lab Duration: BPH w obs/luts, UTI [employer] SYMPTOMS SCORE. 1. INCOMPLETE EMPTYING [...] Making Level: 4 - Moderate Leticia Milian APRN.ENIO documented in this encounterOhio[facility]07-11-2023 Evaluation note* Encounter Date Diagnosis Assessment [...] w/ acute infection Requires no additional treatment [facility] Other 07-06-2023 Evaluation note* Encounter Date Diagnosis [...] exercise for 30 minutes, 3-5 times weekly. [facility] Other 05-16-2023 NoteHNO ID: [id number] Author: Leticia Milian APRN.[facility] Service: ? Author Type: Nurse Practitioner Type: Progress Notes Filed: 07/30/2022 4:34 PM Note Text: Norberto Washington [address] [facility] [address] HISTORY OF PRESENT ILLNESS: Seen 01/20/22 for [...] 07/20/22=neg UA 07/20/22=leuk esterase 250, wbc 11-25 [employer] SYMPTOMS SCORE. 1. INCOMPLETE EMPTYING [...] obs/luts, AUA, PVR Med (more content not included)...[facility]04-06-2023 Evaluation note* Encounter Date Diagnosis [...] w/ antibiotics and treatment of urinary retention [facility] Other 03-21-2023 NotePROCEDURE: XR FOOT LT MIN [...] Electronically authenticated by: SAMY TORRES Date: 2022-06-02 15:48[facility]03-21-2023 NotePROCEDURE: XR FOOT LT MIN 3 [...] Electronically authenticated by: SAMY TORRES Date: 2022-06-02 15:48[facility]01-25-2023 Evaluation note* Encounter Date Diagnosis Assessment [...] lesion was treated w/ cryotherapy w/o complications [facility] Other 01-06-2023 Evaluation note* Encounter Date Diagnosis [...] Mar, Hesitancy of micturition (ICD-10 - R39.11) [facility] Other 10-27-2022 History of Present illness Narrative* Zuleika Hackett - 01/08/2022 8:20 AM EDT Norberto Washington [address] [address] Mr. Washington presents with chief complaints of: Enlarged L testicle. ED 11/07/21: PVR 179 cc, refused a catheter, scheduled to undergo a cystoscopy in [place] but was cancelled due to his urologist [...] epididymitis Hydroceles: None Spermatoceles: None Varicoceles: None [employer] SYMPTOMS SCORE. Date 01/08/2022 1. [...] of Dr. Dugan. Fuad Bootheibe Provider Attestation: Leonard Mancini M.D., personally performed the services described in this documentation. All medicalrecord entries made by the scribe were at my direction and in my presence. I have reviewed the chart and discharge instructions (if applicable) and agree that the record reflects my personal performance and is accurate and complete. Leonard Dugan M.D. documented in this encounterOhio[facility]10-05-2022 Hospital Discharge instructions Additional Instructions Continue taking Flomax as prescribed Avoid drinking any fluids several hours before bed Call your urologist tomorrow for a follow-up appointment Return if you are unable to urinate, develop blood in your urine, abdominal pain, [facility] Work Phone: [phone] History of Present illness Narrative* Leonard Dugan MD - 12/16/2021 2:51 PM EDT Norberto Mccoy Washington [address] [place] [address] HISTORY OF PRESENT ILLNESS: ED 11/07/21: PVR 179 cc, refused a catheter, scheduled to undergo a cystoscopy in [place] but was cancelled due to his urologist [...] Otherwise, intermittent catheterization. Agreed indwelling catheter 18 solomon islander. Flomax will not work, no prostate tissue [...] well resected prostate (had 2 TURP) in [place] PLAN: (Management Options): -Start Flomax one cap [...] Moderate Leonard Dugan MD documented in this encounterOhiohealth [facility]10-03-2022 Miscellaneous Notes* Telephone Encounter - Valente Bell LPN - 12/15/2021 3:58 PM EDT Called and spoke to patient regarding message below. Patient states understanding to information provided. No further action required at this time. * Telephone Encounter - Leticia Milian APRN.CNP - 12/15/2021 10:13 AM EDT Please call and confirm that pt received [employer] message to start new script sent for antibiotic. Thanks Leticia MONDRAGON documented in this encounterOhiohealth [facility]09-29-2022 Miscellaneous Notes* Telephone Encounter - Valente [...] be draining normally now. documented in this encounterOhiohealth [facility]09-28-2022 Nurse Note* Stephanie Kaur RN - [...] hyperplasia with urinary retention documented in this encounterOhiohealth [facility]09-27-2022 History of Present illness Narrative* Leonard Dugan MD - 12/09/2021 5:05 PM EDT [facility] PHYSICIAN INTERPRETATION: [...] contractility Leonard Dugan MD documented in this encounterOhiohealth Van [facility]09-27-2022 Nurse Note* Stephanie Kaur RN - 12/09/2021 3:57 PM EDT [facility] URODYNAMICS LAB [...] Bladder filled with 250 ml sterile NS. Hamliton catheter removed. Patient able to complete Uroflow. [...] of incomplete bladder emptying documented in this encounterOhiohealth Van Wert Hospital09-26-2022 Miscellaneous Notes* Telephone Encounter - Stephanie Kaur RN - 12/08/2021 4:11 PM EDT LM for patient to reschedule catheter change for tomorrow. Last changed 11/26/21 in ED. Will be due for change on 12/23/21. Stephanie Kaur R.N. documented in this encounterOhiohealth Van Wert Hospital09-12-2022 Miscellaneous Notes* Telephone Encounter - Sonia [...] has been busy with his spouse at having to care for her needs and hadn't called earlier when it first started on Wednesday. He was hoping it would clear up but it has not, urine is between [place] tint & Brown and he does see small clots. Patient does have pain at the end of his Penis slight swelling noted (he has been applying Neosporin) Denies difficulty with urine draining into Hamilton bag, he does not have back pain Please advise documented in this encounterOhiohealth Van Wert Hospital08-31-2022 Nurse Note* Stephanie Kaur RN - [...] 0 on a 0-10 pain scale. Stephanie Karu RN AMBULATORY PATIENT EDUCATION THE FOLLOWING WAS EVALUATED Motivation To Learn: Eager Family/Significant Other Support: None - Unavailable/disinterested Cognitive Ability: Alert/Oriented Method of Instruction: Individual instruction The Following Influencing Factors Were Barriers To This Education Session: None The Following Physical Limitations Were Barriers To This Education Session: None Instruction Provided To: Patient Apparel Pattern Maker Present: not applicable Discipline: Nursing Learning [...] supervision. Stephanie Kaur RN documented in this encounterOhiohealth Van Wert Hospital08-31-2022 Procedure note* Leonard Dugan MD - 11/12/2021 11:00 AM EDTProcedure(s): CYSTOSCOPY Pre-Procedure Diagnose(s): BPH with obstruction/lower urinary tract symptoms Post-Procedure Diagnose(s): BPH with obstruction/lower urinary tract symptoms PROCEDURE: CYSTOSCOPY INDICATIONS: ED 11/07/21: PVR 179 cc, refused a catheter, scheduled to undergo a cystoscopy in [place] but was cancelled due to his urologist [...] Otherwise, intermittent catheterization. Agreed indwelling catheter 18 solomon islander. By signing my name below, I, Zuleika [...] complete. Leonard Dugan M.D. documented in this encounterOhiohealth Van Wert Hospital08-29-2022 History of Present illness Narrative* Leonard Dugan MD - 11/10/2021 12:11 PM EDT Cysto with uroflow 11-12-21 ED 11/07/21: PVR 179 cc, refused a catheter, scheduled to undergo a cystoscopy in [place] but was cancelled due to his urologist was sick Pt underwent TURP x2 within a week AUA= 3-5 wach ROSAMARIA 11/10/21 - 10 gm, rubbery, no nodules US 11/07/21:= mildly complex renal cysts UA and culture 11-07-21= -ve May need UDS based on cysto documented in this encounterCleveland ClinicEvaluation note* Diagnosis BPH with obstruction/lower urinary tract symptoms- Primary Hypertrophy of prostate with urinary obstruction and other lower urinary tract symptoms (LUTS) Benign prostatic hyperplasia with urinary retention documented [facility] encounter [facility]* Diagnosis Urinary frequency- Primary Urinary urgency Urgency of urination Urinary straining Straining on urination Feeling of incomplete bladder emptying Incomplete bladder emptying documented in this encounter [facility]* Diagnosis Urinary tract infection without hematuria, site unspecified- Primary Feeling of incomplete bladder emptying Incomplete bladder emptying Benign prostatic hyperplasia with urinary retention documented in this encounter [facility] noteNo assessment information [facility] Work Phone: Evaluation note* Diagnosis Retention of urine- Primary Retention of urine, unspecified Flaccid bladder Neurogenic bladder, NOS documented in this encounter [facility]* Diagnosis Chronic epididymitis- Primary Left hydrocele Hydrocele, unspecified Weak urinary stream Slowing of urinary stream BPH without obstruction/lower urinary tract symptoms Hypertrophy of prostate without urinary obstruction and other lower urinary tract symptoms (LUTS) Epididymitis Orchitis and epididymitis, unspecified documented in this encounter [facility] noteNo InformationNocapital [facility] [employer] [facility] Other Evaluation note* Diagnosis BPH with obstruction/lower urinary tract symptoms- Primary Hypertrophy of prostate with urinary obstruction and other lower urinary tract symptoms (LUTS) Recurrent UTI Urinary tract infection, site not specified Weak urinary stream Slowing of urinary stream documented in this encounter [facility]* Diagnosis Onset Date Resolution Status Chronic venous insufficiency of lower extremity acute Type 2 diabetes mellitus with hyperglycemia acute Chronic kidney disease acute Chronic venous insufficiency of lower extremity acute Elevated cholesterol acute HTN (hypertension) acute Type 2 diabetes mellitus with hyperglycemia [facility] Work Phone: Evaluation note* Diagnosis Onset Date Resolution Status Chronic venous insufficiency of lower extremity acute Type 2 diabetes mellitus with hyperglycemia acute Chronic kidney disease acute Chronic venous insufficiency of lower extremity acute Elevated cholesterol acute HTN (hypertension) acute Overweight acute Type 2 diabetes mellitus with hyperglycemia acute [facility] Work Phone: Evaluation note* Diagnosis Onset Date [...] acute Elevated cholesterol acute HTN (hypertension) acute Osteomyelitis of right foot 2023 acute Type 2 diabetes mellitus with hyperglycemia acute Preop exam for internal medicine noneactive [facility] Work Phone: History general Narrative - Reported* [...] cystoscopy 09.20.2019 Hospitalization History see surgical history [facility] Other Reason for referral (narrative)* Outpatient Procedure (Routine) - Pending Review Specialty Diagnoses / Procedures Referred By Marce dillon Referred To Contact [facility] Diagnoses 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 Procedures URODYNAMICS MAGGY POST-VOIDING RESIDUAL URINE&/BLADDER CAP Leonard Dugan MD [address] [place] [address] [address] Referral ID Status Reason Start Date Expiration Date Visits Requested Visits Authorized [id number] Pending Review Auto-Generat ed Referral 11/12/2021 11/12/2022 1 1 [facility] Summary Purpose Family History No Family History Records Found Relationship Condition Age at Onset Recorded Date/T [place] father Heart disease Unknown Unknown Not Specified Unknown Malignant neoplasm Unknown Advance Directives No Advanced Directives Records Found [...] Overweight Type 2 diabetes mellitus with hyperglycemia Chief Complaint Leg pain ER follow up Amb Documentation CHECK UP pre op clearance Unknown Reason for Visit Chronic venous insuf ficiency of lower extremity Type 2 diabetes mellitus with hyperglycemia Chronic kidney disease Chronic venous insufficiency of lower extremity Elevated cholesterol HTN (hypertension) Overweight Type 2 diabetes mellitus with hyperglycemia Chronic kidney disease Chronic venous insufficiency of lower extremity Elevated cholesterol HTN (hypertension) Osteomyelitis of right foot Type 2 diabetes mellitus with hyperglycemia Preop exam for internal medicine Reason for Referral Reason Refer for diabetic f oot ulcer and calluses Diagnosis 1 Foot abscess, right (L02.611) Diagnosis 2 Callus of foot (L84) Diagnosis 3 Hammer toe of right foot (M20.41) Referral Organization [facility] Referring Provider First Name Campbell Referring Provider Last Name Quentin Referring Provider Specialty Internal Me dicine Referred Organization [facility] Referred Provider Jhon Tejada Referred Address [address], [place],[address] Referred Provider Specialty Podiatry - S urgical [...] section and content) DATE CREATED AUTHOR 11/04/2021 [facility] DATE CREATED AUTHOR AUTHOR'S ORGANIZ ATION 12/13/2021 [facility] DATE CREATED AUTHOR AUTHOR'S ORGANIZ ATION 06/25/2022 [facility] DATE CREATED AUTHOR AUTHOR'S ORGANIZ ATION 02/04/2023 [facility] DATE CREATED AUTHOR AUTHOR'S ORGANIZ ATION 07/15/2023 [facility] Source Comments (unrecognize d section and content) In the event this informatio n is protected by the Federal Confidentiality of Alcohol and Drug Abuse Patient Records regulations: The Federal rules restrict any use of the information to criminally investigate or prosecute any alcohol or drug abuse patient.[facility] HospitalIn the event this information is protected by the Federal Confidentiality of Alcohol and Drug Abuse Patient Records regulations: The Federal rules restrict any use of the information to criminally investigate or prosecute any alcohol or drug abuse patient.[facility] HospitalIn the event this information is protected by the Federal Confidentiality of Alcohol and Drug Abuse Patient Records regulations: The Federal rules restrict any use of the information to criminally investigate or prosecute any alcohol or drug abuse patient.[facility] HospitalIn the event this information is protected by the Federal Confidentiality of Alcohol and Drug Abuse Patient Records regulations: The Federal rules restrict any use of the information to criminally investigate or prosecute any alcohol or drug abuse patient.[facility] HospitalIn the event this information is protected by the Federal Confidentiality of Alcohol and Drug Abuse Patient Records regulations: The Federal rules restrict any use of the information to criminally investigate or prosecute any alcohol or drug abuse patient.[facility] HospitalIn the event this information is protected by the Federal Confidentiality of Alcohol and Drug Abuse Patient Records regulations: The Federal rules restrict any use of the information to criminally investigate or prosecute any alcohol or drug abuse patient.[facility] HospitalIn the event this information is protected by the Federal Confidentiality of Alcohol and Drug Abuse Patient Records regulations: The Federal rules restrict any use of the information to criminally investigate or prosecute any alcohol or drug abuse patient.[facility] HospitalIn the event this information is protected by the Federal Confidentiality of Alcohol and Drug Abuse Patient Records regulations: The Federal rules restrict any use of the information to criminally investigate or prosecute any alcohol or drug abuse patient.[facility] HospitalIn the event this information is protected by the Federal Confidentiality of Alcohol and Drug Abuse Patient Records regulations: The Federal rules restrict any use of the information to criminally investigate or prosecute any alcohol or drug abuse patient.[facility] HospitalIn the event this information is protected by the Federal Confidentiality of Alcohol and Drug Abuse Patient Records regulations: The Federal rules restrict any use of the information to criminally investigate or prosecute any alcohol or drug abuse patient.[facility] HospitalIn the event this information is protected by the Federal Confidentiality of Alcohol and Drug Abuse Patient Records regulations: The Federal rules restrict any use of the information to criminally investigate or prosecute any alcohol or drug abuse patient.[facility] HospitalIn the event this information is protected by the Federal Confidentiality of Alcohol and Drug Abuse Patient Records regulations: The Federal rules restrict any use of the information to criminally investigate or prosecute any alcohol or drug abuse patient.[facility] Care Teams (unrecognized sec tion and content) Team Status: Active Member Role Status Dates Campbell Naranjo DO Primary Care Provider Active Team Status: Active Member Role Status Dates Cmapbell Naranjo DO Primary Care Provide r, Attending [...] Naranjo , DO Primary Care Provider Active Low Carter , DO Emergency Provider Active National Sales Representative Relationship Specialty Start Date End Date Ran Houston Jr. PCP - General 10/10/09 National Sales Representative Relationship Specialty Start Date End Date Ran Houston Jr. PCP - General 10/10/09 National Sales Representative Relationship Specialty Start Date End Date Ran Houston Jr. PCP - General 10/10/09 National Sales Representative Relationship Specialty Start Date End Date Campbell Naranjo, DO [address] [facility] [place] [address] PCP - General Internal Medicine 11/26/21 National Sales Representative Relationship Specialty Start Date End Date Campbell Naranjo Dakota, DO [address] [place] [address] PCP - General Internal Medicine 11/26/21 National Sales Representative Relationship Specialty Start Date End Date Campbell Naranjo, DO [address] [facility] [place] [address] PCP - General Internal Medicine 11/26/21 National Sales Representative Relationship Specialty Start Date End Date QuentinCampbell, DO [address] [facility] [place] [address] PCP - General Internal Medicine 11/26/21 Team Status: Inactive Member Role Status Dates Campbell Naranjo , Primary Care Provider Active Davis Cervantes MD Emergency Provider Active National Sales Representative Relationship Specialty Start Date End Date Quentin Campbell Duncan, DO [address] [place] [address] PCP - General Internal Medicine 11/26/21 Team Status: Inactive Member Role Status Dates Campbell Naranjo , DO Primary Care Provider Active Sam Simons , Emergency Provider Active Team Status: Inactive Member Role Status Dates Campbell Naranjo , DO Primary Care Provider Active Sam Simons , DO Attending Provider Active National Sales Representative Relationship Specialty Start Date End Date Campbell Naranjo, DO [address] [place] [address] PCP - General Internal Medicine 11/26/21 National Sales Representative Relationship Specialty Start Date End Date Campbell Naranjo DO [address] [place] [place] [address] PCP - General Internal Medicine 11/26/21 National Sales Representative Relationship Specialty Start Date End Date Campbell Naranjo DO [address] [place] [address] PCP - General Internal Medicine 11/26/21 Team Status: Active Member Role Status Dates Campbell Naranjo DO Primary Care Provide r, Attending Provider Active Start: July 06, 2023 Team Status: Inactive Member Role Status Dates Campbell Naranjo DO Primary Care Provide r, Attending Provider Active Start: July 09, 2023 End: July 09, 2023 Team Status: Inactive Member Role Status Dates Campbell Naranjo DO Primary Care Provider Active Start: July 12, 2023 End: July 12, 2023 Jhon Tejada DPM MS Attending Provider Active Start: July 12, 2023 End: July 12, 2023 Reason for Visit (unrecogniz ed section [...] RECORDS. [facility] [employer] [facility]. provides no warranty or guarantee of the accuracy or completeness of information in this document.
== END 2023-07-16 12:07 | disposition home or self-care (01) ==
LOC: WC 12:06
PROVIDERS: PCP Internal Medicine; Visit Provider Podiatrist Foot & Ankle Surgery
DX: T87.89 Other complications of amputation stump (principal)
CPT/HCPCS: G0463

== ENCOUNTER 2023-07-21 15:19 | Outpatient (OUT) | payer MEDICARE, SELFPAY | END 2023-07-21 15:20 | disposition home or self-care (01) | LOC: WC 15:19 | PROVIDERS: PCP Internal Medicine; Visit Provider Podiatrist Foot & Ankle Surgery | DX: T87.89 Other complications of amputation stump (principal) | CPT/HCPCS: G0463 ==

== ENCOUNTER 2023-07-22 07:40 | Day surgery (SDC) | payer MEDICARE, SELFPAY ==
[2023-07-22] VITALS (7 sets, daily range): BP systolic 116–163; BP diastolic 58–80; PULSE 63–70; TEMP 35.7–36.2; O2SAT 98–100; BMI 27.3
--- OUTSIDE RECORDS SUMMARY | 2023-07-22 07:43 | XMS_ITS | CCD ---
Author Organization [facility] Care Team Providers Care Traditional Chinese Herbalist Name Role Phone Rosemarie Connolly, Ran Latham [...] Admitting Unavailable BALL, DR SHERMAN Attending Unavailable QUENTIN, DR SHERMAN Primary Care Unavailable [...] Care Provider TuDO [place] d[place] Emergency Provider [phone] Campbell Naranjo DO Primary Care Provider LETICIA MILIAN Attending Unavailable CAMPBELL NARANJO Primary Care Unavailable LETICIA MILIAN Referring Unavailable CAMPBELL NARANJO Primary Care Unavailable LETICIA MILIAN Attending Unavailable LETICIA MILIAN Referring Unavailable CAMPBELL NARANJO Primary Care Unavailable LETICIA MILIAN Referring Unavailable CAMPBELL NARANJO Primary Care Unavailable DO Campbell Naranjo Primary Care Provider DO Low Carter Emergency Provider [phone] CHRISTIAN Tejada Attending Provider [phone] Low Carter Admitting Unavailable Low Carter Attending Unavailable Campbell Naranjo Primary Care Unavailable Jhon Tejada Admitting Unavailable Jhon Tejada Attending Unavailable Campbell Naranjo Primary Care Unavailable Low Carter Admitting Unavailable Low Carter Attending Unavailable Campbell Naranjo Primary Care Unavailable Allergies Allergy Classification Reported Allergen(s) Allergy Type Date of Onset Reaction(s) Facility (20 sources) Ciprofloxacin; Translations: [CIPROFLOXACIN] Drug Allergy 08-01-19 10 GI Upset, [facility] (20 sources) Sulfonamides (Antibiotic); Translations: [SULFA (SULFONAMIDE ANTIBIOTICS)] Propensity to adverse reactions 08-01-19 10 Rash, [facility] (1 source) Ciprofloxacin Drug Allergy [facility] (1 source) Sulfonamides (Antibiotic) Drug allergy (disorder) [facility] (1 source) Allergies Reconciled Propensity to adverse reactions Unknown [facility] Other (1 source) patient allergy list reviewed by nurse or physicia Propensity to adverse reactions 05-20-19 Comment:Done [facility] Other (1 source) Ciprofloxacin Drug Allergy 07-09-19 [facility] (1 source) Sulfonamides (Antibiotic) Drug allergy (disorder) 07-09-19 [facility] Medications Current Medications Medication Drug [...] twice daily. Take 1 capsule by mo [facility] three times daily for [...] Comment on above: Take 1 capsule by [facility] once daily. Take one cap. daily trimethoprim 100 mg oral tablet (8 sources) Dihydrofolate Reductase Inhibitor Antibacterial Start: End: take 100 mg by mouth twice daily Trimethoprim Discontinued 100 MG PO Twice daily December 17, 2021 12:00am May 21, 2023 12:03pm Comment on above: Take 1 tablet by [facility] twice daily for 5 days. 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] Onset: 10-22-2021 Episodic Other [...] Test Name Value Interpretation Reference Range Facility [facility] 07-12-2023 L Specimen: [id number] Received: 07/12/23 Status: MARY Najera Num: [id number] Spec Type: Surgical Subm Dr: Jhon Tejada DPM, MS Tissues: A DIGIT AMPUTATION (LT FOURTH TOE) B DIGIT AMPUTATION (RT FOURTH TOE) Procedures: HE/4, Gross/Micro L4/2, Decalcification/2 Age/ Patient Sex Location Account Attending Physician [place] 83/M LABELL [id number] Jhon Tejada DPM, MS SPEC NUM: [id number] RECD: 07/12/23 STATUS: MARY NAJERA NUM: [id number] CIATY: 07/12/[address]: Jhon Tejada DPM, MS [...] digit. The skin surface is -------- Specimen: [id number] Received: 07/12/23 Status: MARY Najera Num: [id number] Spec Type: Surgical Subm Dr: Jhon Tejada,CHRISTIAN, MS Tissues: A DIGIT AMPUTATION (LT FOURTH TOE) B DIGIT AMPUTATION (RT FOURTH TOE) Procedures: HE/4, Gross/Micro L4/2, Decalcification/2 -------- Patient: Norberto [place] [id number] (Continued) -------- Specimen: [id number] Received: 07/12/23 (Continued) Gross Description (Continued) Signed (signature on file) Yisel Kaminski MD 07/13/231921 -------- Specimen: [id number] Received: 07/12/23 Status: MARY Najera Num: [id number] Spec Type: Surgical Subm Dr: Jhon Tejada,CHRISTIAN, MS Tissues: A DIGIT AMPUTATION (LT FOURTH TOE) B DIGIT AMPUTATION (RT FOURTH TOE) Procedures: HE/4, Gross/Micro L4/2, Decalcification/2 -------- Patient: Norberto [place] [id number] (Continued) -------- Specimen: [id number] Received: 07/12/23 (Continued) Gross Description (Continued) 90% [...] foot, osteomyelitis right foot TW CPT Codes 54803 X2 86090 X2 -------- -------- Specimen: [id number] Received: 07/12/23 Status: MARY Dania Num: [id number] Spec Type: Surgical Subm Dr: Jhon Tejada,CHRISTIAN, MS Tissues: A DIGIT AMPUTATION (LT FOURTH TOE) B DIGIT AMPUTATION (RT FOURTH TOE) Procedures: HE/4, Gross/Micro L4/2, Decalcification/2 -------- Patient: Norberto [place] [id number] (Continued) -------- Signed (signature on f (more content not included)... Normal [facility] Basophils Auto (Bld) [#/Vol] on 07-06-2023 Basophils (Bld) [#/Vol] 0.0 10 3/uL 0.0-0.1 [facility] Basophils/100 WBC Auto (Bld) on 07-06-2023 Basophils/100 WBC (Bld) 0.4 % 0.2-2.0 [facility] Eosinophils/100 WBC Auto (Bl d)on 07-06-2023 Eosinophils/100 WBC (Bld) 2.3 % 0.9-7.0 [facility] Erythrocyte distribution wid th Auto (RBC) [Ratio]on 07-06-2023 Erythrocyte distribution width (RBC) [Ratio] 12.4 % 11.0-15.0 [facility] Estimated glomerular filtrat ion rate (GFR) non- Americanon 07-06-2023 GFR/1.73 sq M.predicted among non-blacks MDRD (S/P/Bld) [Vol rate/Area] 59 mL/min/{1.73_m2} >=60 [facility] Hematocrit Auto (Bld) [Volum e fraction]on 07-06-2023 Hematocrit (Bld) [Volume fraction] 37.5 % 42.0-54.0 [facility] Hemoglobin [Mass/volume] in Bloodon 07-06-2023 Hemoglobin (Bld) [Mass/Vol] 12.5 g/dL 14.0-18.0 [facility] Laboratory - Chemistry and C hemistry - challengeon 07-06-2023 Calcium [Mass/Vol] 9.0 mg/dL 8.5-10.1 [facility] Chloride [Moles/Vol] 98 mmol/L 98-107 [facility] CO2 [Moles/Vol] 27.6 mmol/L 21.0-32.0 [facility] Creatinine [Mass/Vol] 1.17 mg/dL 0.70-1.30 [facility] GFR/1.73 sq M.predicted MDRD (S/P/Bld) [Vol rate/Area] mL/min/{1.73_m2} >=60 [facility] Glucose [Mass/Vol] 109 mg/dL 74-106 [facility] Potassium [Moles/Vol] 5.1 mmol/L 3.5-5.1 [facility] Sodium [Moles/Vol] 134 mmol/L 136-145 [facility] Urea nitrogen [Mass/Vol] 23.0 mg/dL 7.0-18.0 [facility] Urea nitrogen/Creatinine [Mass ratio] 19.7 mg/mg [facility] Laboratory - Hematology and Cell countson 07-06-2023 Immature granulocytes/100 WBC (Bld) 0.4 % 0.0-0.5 [facility] Leukocytes [#/volume] correc marshal for nucleated erythrocytes in Blood by Automated counon 07-06-2023 WBC corrected for nucl RBC Auto (Bld) [#/Vol] 8.0 10 3/uL 4.0-11.0 [facility] Lymphocytes Auto (Bld) [#/Vo l]on 07-06-2023 Lymphocytes (Bld) [#/Vol] 1.8 10 3/uL 1.2-3.8 [facility] Lymphocytes/100 WBC Auto (Bl d)on 07-06-2023 Lymphocytes/100 WBC (Bld) 22.3 % 20.5-60.0 [facility] MCH Auto (RBC) [Entitic mass ]on 07-06-2023 MCH (RBC) [Entitic mass] 30.7 pg 25.9-34.0 [facility] MCHC Auto (RBC) [Mass/Vol]on 07-06-2023 MCHC (RBC) [Mass/Vol] 33.3 g/dL 29.9-35.2 [facility] MCV Auto (RBC) [Entitic vol] on 07-06-2023 MCV (RBC) [Entitic vol] 92.1 fL 80.0-94.0 [facility] Monocytes Auto (Bld) [#/Vol] on 07-06-2023 Monocytes (Bld) [#/Vol] 1.2 10 3/uL 0.3-0.8 [facility] Monocytes/100 WBC Auto (Bld) on 07-06-2023 Monocytes/100 WBC (Bld) 15.0 % 1.7-12.0 [facility] Neutrophils Auto (Bld) [#/Vo l]on 07-06-2023 Neutrophils (Bld) [#/Vol] 4.8 10 3/uL 1.4-6.5 [facility] Neutrophils/100 WBC Auto (Bl d)on 07-06-2023 Neutrophils/100 WBC (Bld) 59.6 % 43.0-75.0 [facility] No Panel Informationon 07-05 Eosinophils # (Auto) 0.2 10 3/uL 0.0-0.7 [facility] Immature Granulocyte # (Auto) 0.03 10 3/uL 0.00-0.03 [facility] Platelet mean volume Auto (B ld) [Entitic vol]on 07-06-2023 Platelet mean volume (Bld) [Entitic vol] 8.9 fL 9.5-13.5 [facility] Platelets Auto (Bld) [#/Vol] on 07-06-2023 Platelets (Bld) [#/Vol] 242 10 3/uL 150-450 [facility] RBC Auto (Bld) [#/Vol]on RBC (Bld) [#/Vol] 4.07 10 6/uL 4.70-6.10 [facility] Serum or plasma anion gap de terminationon 07-06-2023 Anion gap [Moles/Vol] 13.5 mmol/L [facility] US venous duplex LE RTon US venous duplex LE RT [facility] [place] [address] Ultrasound Report Signed Patient: Norberto Washington MR#: [id number] : 1940 Acct:[id number] Age/Sex: 83 / M ADM Date: 05/15/23 Loc: ER Room: Type: [facility] ER Attending Dr: Ordering Provider: [...] Gus Wren MD05/16/2023 11:15 AM Dictation Location: [place] [address] Tech: Helen Gama Transcribed By: PAUL 05/16/23 1115 Dictated By: Gus Wren MD 05/16/23 111 Signed By: 05/16/23 1115 Normal [facility] Estimated glomerular filtrat ion rate (GFR) non- Americanon 05-03-2023 GFR/1.73 sq M.predicted among non-blacks MDRD (S/P/Bld) [Vol rate/Area] mL/min/{1.73_m2} >=60 [facility] Laboratory - Chemistry and C hemistry - challengeon 05-03-2023 Calcium [Mass/Vol] 8.5 mg/dL 8.5-10.1 [facility] Chloride [Moles/Vol] 100 mmol/L 98-107 [facility] CO2 [Moles/Vol] 27.6 mmol/L 21.0-32.0 [facility] Creatinine [Mass/Vol] 1.06 mg/dL 0.70-1.30 [facility] GFR/1.73 sq M.predicted MDRD (S/P/Bld) [Vol rate/Area] mL/min/{1.73_m2} >=60 [facility] Glucose [Mass/Vol] 135 mg/dL 74-106 [facility] Potassium [Moles/Vol] 4.1 mmol/L 3.5-5.1 [facility] Sodium [Moles/Vol] 136 mmol/L 136-145 [facility] Urea nitrogen [Mass/Vol] 19.0 mg/dL 7.0-18.0 [facility] Urea nitrogen/Creatinine [Mass ratio] 17.9 mg/mg [facility] No Panel Informationon 05-03 C-Reactive Protein, Quantitative <0.50 mg/dL <=0.50 [facility] Serum or plasma anion gap de terminationon 05-03-2023 Anion gap [Moles/Vol] 12.5 mmol/L [facility] Estimated glomerular filtrat ion rate (GFR) non- Americanon 04-30-2023 GFR/1.73 sq M.predicted among non-blacks MDRD (S/P/Bld) [Vol rate/Area] mL/min/{1.73_m2} >=60 [facility] Laboratory - Chemistry and C hemistry - challengeon 04-30-2023 Calcium [Mass/Vol] 8.7 mg/dL 8.5-10.1 [facility] Chloride [Moles/Vol] 101 mmol/L 98-107 [facility] CO2 [Moles/Vol] 29.2 mmol/L 21.0-32.0 [facility] Creatinine [Mass/Vol] 1.06 mg/dL 0.70-1.30 [facility] GFR/1.73 sq M.predicted MDRD (S/P/Bld) [Vol rate/Area] mL/min/{1.73_m2} >=60 [facility] Glucose [Mass/Vol] 93 mg/dL 74-106 [facility] Potassium [Moles/Vol] 4.6 mmol/L 3.5-5.1 [facility] Sodium [Moles/Vol] 136 mmol/L 136-145 [facility] Urea nitrogen [Mass/Vol] 20.0 mg/dL 7.0-18.0 [facility] Urea nitrogen/Creatinine [Mass ratio] 18.9 mg/mg [facility] No Panel Informationon 04-30 C-Reactive Protein, Quantitative 0.50 mg/dL <=0.50 [facility] Vancomycin Level Trough 11.0 ug/mL 5.0-20.0 [facility] Serum or plasma anion gap de terminationon 04-30-2023 Anion gap [Moles/Vol] 10.4 mmol/L [facility] CNOVon 02-02-2023 CNOV Office Visit (UROLLN ) NORBERTO WASHINGTON ([id number]) 1940 M Date Time Provider Department 02/02/23 1:30 PM LETICIA MILIAN UROLLN During your visit today, we recorded the following information about you: Pulse Blood pressure Weight 65/minute 146/70 102.1 kg Leticia Milian, RELAY MAN.[facility] 02/02/2023 2:13 PM Signed Norberto Washington [address] [facility] [address] HISTORY OF PRESENT ILLNESS: Seen 07/28/22 for [...] see lab Duration: BPH w obs/luts, UTI [employer] [facility] SYMPTOMS SCORE. 1. INCOMPLETE EMPTYING [...] Stream (imp (more content not included)... Normal [facility] Bacteria Ur Culton 3 Bacteria identified Cx Nom (U) CULTURE, URINE: No growth (<1,000 CFU/ml) Normal [facility] Comment on above: Performed By: #### 6 30-4 #### [facility] CLIA [id number] [address] [place] [id number] [place] [facility] CNOVon 07-28-2022 CNOV Office Visit (UROLLN ) NORBERTO WASHINGTON ([id number]) 1940 M Date Time Provider Department 07/28/22 1:30 PM LETICIA MILIAN During your visit today, we recorded the following information about you: Pulse Blood pressure Weight 68/minute 142/55 100.7 kg Leticia Milian APRN.[employer]POID GEAR GENERATOR 07/30/2022 4:34 PM Addendum Norberto Washington 109 [facility] [address] HISTORY OF PRESENT ILLNESS: Seen 01/20/22 for [...] 07/20/22=neg UA 07/20/22=leuk esterase 250, wbc 11-25 [facility] SYMPTOMS SCORE. 1. INCOMPLETE EMPTYING [...] -DM UTI (more content not included)... Normal [facility] Bacteria Ur Culton 3 Bacteria identified Cx Nom (U) CULTURE, URINE: No growth (<1,000 CFU/ml) Normal [facility] Comment on above: Performed By: #### 6 30-4 #### [facility] CLIA [id number] [address] [place] [address] [place] Urinalysis complete panel (U )on 07-20-2022 Bilirubin Ql (U) Negative Normal Negative [facility] Comment on above: Order Comment: Speci men Type: URINE SPECIMEN Ordering Facility: [facility] Address: [address] [place] [address] Performed By: #### 2 4356-8 #### [facility] CLIA [id number] [address] [place] [address] [place] Clarity (Unsp spec) Clear Normal Clear [facility] Comment on above: Order Comment: Speci men Type: URINE SPECIMEN Ordering Facility: [facility] Address: [address] [place] [address] Performed By: #### 2 4356-8 #### [facility] CLIA [id number] [address] [place] [address] [place] Color (U) Yellow Normal Yellow [facility] Comment on above: Order Comment: Speci men Type: URINE SPECIMEN Ordering Facility: [facility] Address: [address] [place] [address] Performed By: #### 2 4356-8 #### [facility] CLIA [id number] [address] [place] [address] [place] Epithelial cells LM.HPF (Urine sed) [#/Area] Few Normal [facility] Comment on above: Order Comment: Speci men Type: URINE SPECIMEN Ordering Facility: [facility] Address: [address] [place] [address] Performed By: #### 2 4356-8 #### [facility] CLIA [id number] [facility] [place] [address] [place] Glucose Test strip (U) [Mass/Vol] Negative Normal Trace, Negative [facility] Comment on above: Order Comment: Speci men Type: URINE SPECIMEN Ordering Facility: [facility] Address: [address] Performed By: #### 2 4356-8 #### [facility] CLIA [id number] [address] [place] [address] [place] Hemoglobin Ql (U) Negative Normal Negative, Trace [facility] Comment on above: Order Comment: Speci men Type: URINE SPECIMEN Ordering Facility: [facility] Address: [address] [place] [address] Performed By: #### 2 4356-8 #### [facility] CLIA [id number] [address] [place] [address] [place] Ketones Ql (U) Negative Normal Trace, Negative [facility] Comment on above: Order Comment: Speci men Type: URINE SPECIMEN Ordering Facility: [facility] Address: [address] Performed By: #### 2 4356-8 #### [facility] CLIA [id number] [address] [place] [address] [place] Leukocyte esterase Test strip Ql (U) 250 Ayaz/uL Abnormal Negative, 25 Ayaz/uL [facility] Comment on above: Order Comment: Speci men Type: URINE SPECIMEN Ordering Facility: [facility] Address: [address] Performed By: #### 2 4356-8 #### [facility] CLIA [id number] [address] [place] [address] [place] Nitrite Ql (U) Negative Normal Negative [facility] Comment on above: Order Comment: Speci men Type: URINE SPECIMEN Ordering Facility: [facility] Address: [address] Performed By: #### 2 4356-8 #### [facility] CLIA [id number] [address] [place] [address] [place] pH (U) 5.5 [pH] Normal 5.0-8.0 [facility] Comment on above: Order Comment: Speci men Type: URINE SPECIMEN Ordering Facility: [facility] Address: [address] [place] [address] Performed By: #### 2 4356-8 #### [facility] CLIA [id number] [address] [place] [address] [place] Protein (U) [Mass/Vol] Negative Normal Trace , Negative [facility] Comment on above: Order Comment: Speci men Type: URINE SPECIMEN Ordering Facility: [facility] Address: [address] [place] [address] Performed By: #### 2 4356-8 #### [facility] CLIA [id number] [address] [place] [address] [place] RBC LM.HPF (Urine sed) [#/Area] 0-3 /HPF Normal 0-3 /HPF [facility] Comment on above: Order Comment: Speci men Type: URINE SPECIMEN Ordering Facility: [facility] Address: [address] [place] [address] Performed By: #### 2 4356-8 #### [facility] CLIA [id number] [address] [place] [address] [place] Specific gravity (U) [Rel density] 1.016 Normal 1.005-1.030 [facility] Comment on above: Order Comment: Speci men Type: URINE SPECIMEN Ordering Facility: [facility] Address: [address] [place] [address] Performed By: #### 2 4356-8 #### [facility] CLIA [id number] [address] [place] [address] [place] Urobilinogen Ql (U) Negative Normal Negative [facility] Comment on above: Order Comment: Speci men Type: URINE SPECIMEN Ordering Facility: [facility] Address: [address] [place] [address] Performed By: #### 2 4356-8 #### [facility] CLIA [id number] [address] [place] [address] [place] WBC LM.HPF (Urine sed) [#/Area] 11-25 /HPF Abnormal 0-5 /HPF [facility] Comment on above: Order Comment: Speci men Type: URINE SPECIMEN Ordering Facility: [facility] Address: [address] [place] [address] Performed By: #### 2 4356-8 #### [facility] CLIA [id number] [address] [place] [address] [place] GLYCOHEMOGLOBIN A1Con 2022 ADA RECOMMENDATION SEE BELOW Normal [facility] Comment on above: Result Comment: ADA RECOMMENDED LIMIT 4.0 - 6.0 ADA THERAPEUTIC TARGET < 7.0 ACTION SUGGESTED > 7.0 Performed By: #### A 1C #### [facility] [address] [place] [address] [address] Juan Pablo Kaminski Glucose [Mass/Vol] 128 mg/dL Normal [facility] [place] [facility] Comment on above: Performed By: #### A 1C #### [facility] [address] [place] [address] [address] Juan Pablo Kaminski HbA1c (Bld) [Mass fraction] 6.1 % Normal 4.5-6.2 [facility] Comment on above: Performed By: #### A 1C #### [facility] [address] [place] [address] [address] Juan Pablo Kaminski A1C with Estimated Average G luon 03-20-2022 A1C with Estimated Average Glu 128 [facility] Other A1C with Estimated Average Glu [facility] Other HbA1c (Bld) [Mass fraction] 6.1 % Normal 4.5-6.2 [facility] Other Comment on above: Performed By: #### A 1C #### [facility] [address] [place], [place] [address] Dr. Juan Pablo Kaminski GLYCOHEMOGLOBIN A1Con 2022 ADA RECOMMENDATION SEE BELOW Normal [facility] [place] [facility] Comment on above: Result Comment: ADA RECOMMENDED LIMIT 4.0 - 6.0 ADA THERAPEUTIC TARGET < 7.0 ACTION SUGGESTED > 7.0 Performed By: #### A 1C #### [facility] [address] [place] [address] [address] Juan Pablo Kaminski Glucose [Mass/Vol] 128 mg/dL Normal [facility] [place] [facility] Comment on above: Performed By: #### A 1C #### [facility] [address] [place] [address] [address] Juan Pablo Kaminski US SCROTUM W [...] LEIDY PEREIRA Date: 2021-12-25 18:32 Normal [facility] Urine culture routineOrdered By: Sam Simons on 12-19-2021 Bacteria identified Cx Nom (U) Pseudomonas aeruginosa [facility] Automated erythrocytes count in urine sediment (number/area)Ordered By: Sam Simons on 12-17-2021 RBC Auto (Urine sed) [#/Area] 1-2 [HPF] 0-4 [facility] Automated leukocytes count i n urine sediment (number/area)Ordered By: Sam Simons on 12-17-2021 WBC Auto (Urine sed) [#/Area] 20-49 [HPF] 0-4 [facility] Bilirubin Test strip Ql (U)O rdered By: Sam Simons on 12-17-2021 Bilirubin Ql (U) Negative Negative [facility] Color Auto (U)Ordered By: Micheal Simons on 12-17-2021 Color (U) Yellow Yellow [facility] Ketones Auto test strip (U) [Mass/Vol]Ordered By: Sam Simons on 12-17-2021 Ketones (U) [Mass/Vol] Negative Negative [facility] - UrinalysisOrder ed By: Sam Simons on 12-17-2021 Hyaline casts LM Ql (Urine sed) 0-8 [LPF] 0-8 [facility] Nitrite Test strip Ql (U)Ord ered By: Sam Simons on 12-17-2021 Nitrite Ql (U) Negative Negative [facility] Protein Auto test strip (U) [Mass/Vol]Ordered By: Sam Simons on 12-17-2021 Protein (U) [Mass/Vol] Negative Negative [facility] Specific gravity Auto test s trip (U) [Rel density]Ordered By: Sam Simons on 12-17-2021 Specific gravity (U) [Rel density] 1.016 1.001-1.030 [facility] Squamous epithelial cells de tection in urine sediment by light microscopyOrdered By: Sam Simons on 12-17-2021 Epithelial cells.squamous LM Ql (Urine sed) 0-1 [HPF] 0-2 [facility] Urine bacteria detection by automated methodOrdered By: Sam Simons on 12-17-2021 Bacteria Auto Ql (U) None seen None Seen [facility] Urine clarity by refractomet ry automatedOrdered By: Sam Simons on 12-17-2021 Clarity Refractometry automated (U) Clear Clear [facility] Urine glucose measurement by automated test strip (mass/volume)Ordered By: Sam Simons on 12-17-2021 Glucose Auto test strip (U) [Mass/Vol] Normal mg/dL Normal [facility] Urine hemoglobin detection b y automated test stripOrdered By: Sam Simons on 12-17-2021 Hemoglobin Auto test strip Ql (U) Negative Negative [facility] Urine leukocyte esterase det ection by automated test stripOrdered By: Sam Simons on 12-17-2021 Leukocyte esterase Auto test strip Ql (U) 4+ Negative [facility] Urobilinogen Auto test strip (U) [Mass/Vol]Ordered By: Sam Simons on 12-17-2021 Urobilinogen (U) [Mass/Vol] Normal mg/dL Normal [facility] pH Auto test strip (U)Ordere d By: Sam Simons on 12-17-2021 pH (U) 6.0 [pH] 5.0-9.0 [facility] Urine culture routineOrdered By: Davis Cervantes on 12-13-2021 Bacteria identified Cx Nom (U) No Growth 2 Days [facility] Automated erythrocytes count in urine sediment (number/area)Ordered By: Davis Cervantes on 12-11-2021 RBC Auto (Urine sed) [#/Area] 20-49 [HPF] 0-4 [facility] Automated leukocytes count i n urine sediment (number/area)Ordered By: Davis Cervantes on 12-11-2021 WBC Auto (Urine sed) [#/Area] 10-19 [HPF] 0-4 [facility] Basophils Auto (Bld) [#/Vol] Ordered By: Davis Cervantes on 12-11-2021 Basophils (Bld) [#/Vol] 0.1 10*3/uL 0.0-0.2 [facility] Basophils/100 WBC Auto (Bld) Ordered By: Davis Cervantes on 12-11-2021 Basophils/100 WBC (Bld) 1.2 % . [facility] Bilirubin Test strip Ql (U)O rdered By: Davis Cervantes on 12-11-2021 Bilirubin Ql (U) Negative Negative [facility] Blood hemoglobin measurement (mass/volume)Ordered By: Davis Cervantes on 12-11-2021 Hemoglobin (Bld) [Mass/Vol] 13.3 g/dL 13.0-17.0 [facility] Blood leukocytes automated c ount (number/volume)Ordered By: Davis Cervantes on 12-11-2021 WBC (Bld) [#/Vol] 8.2 10*3/uL 4.5-11.0 [facility] Color Auto (U)Ordered By: Mary Cervantes on 12-11-2021 Color (U) Yellow Yellow [facility] Creatinine and Glomerular fi ltration rate.predicted panel (S/P/Bld)Ordered By: Davis Cervantes on 12-11-2021 Creatinine [Mass/Vol] 1.16 mg/dL 0.64-1.27 [facility] Eosinophils Auto (Bld) [#/Vo l]Ordered By: Davis Cervantes on 12-11-2021 Eosinophils (Bld) [#/Vol] 0.2 10*3/uL 0.0-0.45 [facility] Eosinophils/100 WBC Auto (Bl d)Ordered By: Davis Cervantes on 12-11-2021 Eosinophils/100 WBC (Bld) 2.9 % . [facility] Erythrocyte distribution wid th Auto (RBC) [Ratio]Ordered By: Davis Cervantes on 12-11-2021 Erythrocyte distribution width (RBC) [Ratio] 11.8 % 12.0-14.8 [facility] Estimated glomerular filtrat ion rate (GFR) non- AmericanOrdered By: Davis Cervantes on 12-11-2021 GFR/1.73 sq M.predicted among non-blacks MDRD (S/P/Bld) [Vol rate/Area] 60 mL/Min [facility] Hematocrit Auto (Bld) [Volum e fraction]Ordered By: Davis Cervantes on 12-11-2021 Hematocrit (Bld) [Volume fraction] 39.6 % 38.8-50.0 [facility] Ketones Auto test strip (U) [Mass/Vol]Ordered By: Davis Cervantes on 12-11-2021 Ketones (U) [Mass/Vol] Negative Negative [facility] - Hematology and Cell countsOrdered By: Davis Cervantes on 12-11-2021 Nucleated RBC/100 WBC (Bld) [Ratio] 0.0 % 0-0.5 [facility] Laboratory - UrinalysisOrder ed By: Davis Cervantes on 12-11-2021 Hyaline casts LM Ql (Urine sed) 0-8 [LPF] 0-8 [facility] Lymphocytes Auto (Bld) [#/Vo l]Ordered By: Davis Cervantes on 12-11-2021 Lymphocytes (Bld) [#/Vol] 1.9 10*3/uL 1.00-4.8 [facility] Lymphocytes/100 WBC Auto (Bl d)Ordered By: Davis Cervantes on 12-11-2021 Lymphocytes/100 WBC (Bld) 23.3 % . [facility] MCH Auto (RBC) [Entitic mass ]Ordered By: Davis Cervantes on 12-11-2021 MCH (RBC) [Entitic mass] 32.0 pg 27.5-35.2 [facility] MCHC Auto (RBC) [Mass/Vol]Or dered By: Davis Cervantes on 12-11-2021 MCHC (RBC) [Mass/Vol] 33.6 g/dL 32.5-35.6 [facility] MCV Auto (RBC) [Entitic vol] Ordered By: Davis Cervantes on 12-11-2021 MCV (RBC) [Entitic vol] 95.1 fL 83.5-101 [facility] Monocytes Auto (Bld) [#/Vol] Ordered By: Davis Cervantes on 12-11-2021 Monocytes (Bld) [#/Vol] 1.1 10*3/uL 0.0-0.8 [facility] Monocytes/100 WBC Auto (Bld) Ordered By: Davis Cervantes on 12-11-2021 Monocytes/100 WBC (Bld) 13.6 % . [facility] Neutrophils Auto (Bld) [#/Vo l]Ordered By: Davis Cervantes on 12-11-2021 Neutrophils (Bld) [#/Vol] 4.8 10*3/uL 1.8-7.7 [facility] Neutrophils/100 WBC Auto (Bl d)Ordered By: Davis Cervantes on 12-11-2021 Neutrophils/100 WBC (Bld) 59.0 % . [facility] Nitrite Test strip Ql (U)Ord ered By: Davis Cervantes on 12-11-2021 Nitrite Ql (U) Negative Negative [facility] No Panel InformationOrdered By: Davis Cervantes on 12-11-2021 Estimated GFR () > 60 mL/Min [facility] Comment on above: GFR estimated refere nce range: According to KDOQI guidelines, <60 ml/min/1.73m2 is sufficient to diagnose a patient with chronic kidney disease. Pharmacy Creatinine Clearance (Chem 57.67 [facility] Platelet mean volume Auto (B ld) [Entitic vol]Ordered By: Davis Cervantes on 12-11-2021 Platelet mean volume (Bld) [Entitic vol] 7.0 fL 6.6-10.1 [facility] Platelets Auto (Bld) [#/Vol] Ordered By: Davis Cervantes on 12-11-2021 Platelets (Bld) [#/Vol] 266 10*3/uL 150-450 [facility] Protein Auto test strip (U) [Mass/Vol]Ordered By: Davis Cervantes on 12-11-2021 Protein (U) [Mass/Vol] Negative Negative [facility] RBC Auto (Bld) [#/Vol]Ordere d By: Davis Cervantes on 12-11-2021 RBC (Bld) [#/Vol] 4.17 10*6/uL 3.90-5.60 [facility] Serum or plasma anion gap de terminationOrdered By: Davis Cervantes on 12-11-2021 Anion gap [Moles/Vol] 12.2 mmol/L 6.0-15.0 [facility] Serum or plasma calcium maggy urement (mass/volume)Ordered By: Davis Cervantes on 12-11-2021 Calcium [Mass/Vol] 9.0 mg/dL 8.2-10.2 [facility] Serum or plasma chloride duran surement (moles/volume)Ordered By: Davis Cervantes on 12-11-2021 Chloride [Moles/Vol] 96 mmol/L 95-114 [facility] Serum or plasma glucose maggy urement (mass/volume)Ordered By: Davis Cervantes on 12-11-2021 Glucose [Mass/Vol] 131 mg/dL 70-100 [facility] Comment on above: ADA recommended refe rence rangeRandom Glucose Reference Range is dependent on time and content of last meal. Glucose of more than 200 mg/dL in a nonstressed, ambulatory subject supports the diagnosis of Diabetes Mellitus. Serum or plasma potassium me asurement (moles/volume)Ordered By: Davis Cervanets on 12-11-2021 Potassium [Moles/Vol] 4.5 mmol/L 3.5-5.1 [facility] Serum or plasma sodium measu rement (moles/volume)Ordered By: Davis Cervantes on 12-11-2021 Sodium [Moles/Vol] 131 mmol/L 136-146 [facility] Serum or plasma total carbon dioxide measurement (moles/volume)Ordered By: Davis Cervantes on 12-11-2021 CO2 [Moles/Vol] 27.3 mmol/L 22.0-30.0 [facility] Serum or plasma urea nitroge n measurement (mass/volume)Ordered By: Davis Cervantes on 12-11-2021 Urea nitrogen [Mass/Vol] 20 mg/dL 9-23 [facility] Specific gravity Auto test s trip (U) [Rel density]Ordered By: Davis Cervantes on 12-11-2021 Specific gravity (U) [Rel density] 1.014 1.001-1.030 [facility] Squamous epithelial cells de tection in urine sediment by light microscopyOrdered By: Davis Cervantes on 12-11-2021 Epithelial cells.squamous LM Ql (Urine sed) 0-1 [HPF] 0-2 [facility] Urine bacteria detection by automated methodOrdered By: Davis Cervantes on 12-11-2021 Bacteria Auto Ql (U) None seen None Seen [facility] Urine clarity by refractomet ry automatedOrdered By: Davis Cervantes on 12-11-2021 Clarity Refractometry automated (U) Clear Clear [facility] Urine glucose measurement by automated test strip (mass/volume)Ordered By: Davis Cervantes on 12-11-2021 Glucose Auto test strip (U) [Mass/Vol] Normal mg/dL Normal [facility] Urine hemoglobin detection b y automated test stripOrdered By: Davis Cervantes on 12-11-2021 Hemoglobin Auto test strip Ql (U) 2+ Negative [facility] Urine leukocyte esterase det ection by automated test stripOrdered By: Davis Cervantes on 12-11-2021 Leukocyte esterase Auto test strip Ql (U) 2+ Negative [facility] Urobilinogen Auto test strip (U) [Mass/Vol]Ordered By: Davis Cervantes on 12-11-2021 Urobilinogen (U) [Mass/Vol] Normal mg/dL Normal [facility] pH Auto test strip (U)Ordere d By: Davis Cervantes on 12-11-2021 pH (U) 5.5 [pH] 5.0-9.0 [facility] ED NOTEon 11-27-2021 ED NOTE HNO ID: [id number] Author: Alyx Vergara RN Service: Nursing Author Type: Registered Nurse Type: ED Notes Filed: 11/26/2021 10:21 PM Note Text: Discharge instructions and follow up appointments reviewed. Pt verbalized understanding and states no concerns or questions at this time. VSS. Spoke with Asha about elevated BP. Stated that it's okay for pt to go and have him f/u with his PCP. Normal [facility] ED NOTE HNO ID: [id number] Author: Alyx Vergara RN Service: Nursing Author Type: Registered Nurse Type: ED Notes Filed: 11/26/2021 10:10 PM Note Text: Replaced hamilton bag with leg bag. Normal [facility] Bacteria Ur Culton 2 Bacteria identified Cx Nom (U) [id number] Abnormal [facility] Comment on above: Order Comment: Speci men Type: URINE SPECIMEN Ordering Facility: [facility] Address: [address] [place] [address] Result Comment: >=10 0,000 CFU/ml Klebsiella oxytoca Performed By: #### 6 30-4, 58635-3 #### [facility] CLIA [id number] [address] [place] [address] [place] Bacterial susceptibility maldonado el (Isol)on 11-26-2021 Ampicillin [Susc] Resistant [facility] Comment on above: Order Comment: Order ing Facility: [facility] Address: [address] [place] [address] Performed By: #### 6 30-4, 29516-3 #### [facility] CLIA [id number] [address] [place] [address] [place] Ampicillin+Sulbactam [Susc] 4 Susceptible Susceptible <=8 , Intermediate >8 , Resistant >16 [facility] Comment on above: Order Comment: Order ing Facility: [facility] Address: [address] [place] [address] Performed By: #### 6 30-4, 66690-7 #### [facility] CLIA [id number] [address] [place] [address] [place] ceFAZolin [Susc] <=4 Susceptible Susceptible 0-16 , Intermediate <0 or >16 , Resistant >16 [facility] Comment on above: Order Comment: Order ing Facility: [facility] Address: [address] [place] [address] Performed By: #### 6 30-4, 85960-7 #### [facility] CLIA [id number] [address] [place] [address] [place] Cefepime [Susc] <=1 Susceptible Susceptible <=2 , Intermediate >2 , Resistant >=16 [facility] Comment on above: Order Comment: Order ing Facility: [facility] Address: [address] [place] [address] Performed By: #### 6 30-4, 73951-1 #### [facility] CLIA [id number] [address] [place] [address] [place] cefTRIAXone [Susc] <=1 Susceptible Susceptib le <=1 , Intermediate >1 , Resistant >=4 [facility] Comment on above: Order Comment: Order ing Facility: [facility] Address: [address] Performed By: #### 6 30-4, 44075-1 #### [facility] CLIA [id number] [address] [place] [address] [place] Ciprofloxacin [Susc] <=0.25 Susceptible Suscept ible <0.5 , Intermediate >=.5 , Resistant >=1 [facility] Comment on above: Order Comment: Order ing Facility: [facility] Address: [address] [place] [address] Performed By: #### 6 30-4, 27310-2 #### [facility] CLIA [id number] [address] [place] [address] [place] Ertapenem ROCIO [Susc] <=0.5 Susceptible Suscept ible <=0.5 , Intermediate >.5 , Resistant >1 [facility] Comment on above: Order Comment: Order ing Facility: [facility] Address: [address] [place], [place] [address] Performed By: #### 6 30-4, 36944-0 #### [facility] CLIA [id number] [address] [place] [address] [place] Gentamicin [Susc] <=1 Susceptible Susceptibl e <=4 , Intermediate >4 , Resistant >8 [facility] Comment on above: Order Comment: Order ing Facility: [facility] Address: [address] Performed By: #### 6 30-4, 82363-3 #### [facility] CLIA [id number] [address] [place] [address] [place] Meropenem [Susc] <=0.25 Susceptible Susceptible <=1 , Intermediate >1 , Resistant >2 [facility] Comment on above: Order Comment: Order ing Facility: [facility] Address: [address] [place], [place] [address] Performed By: #### 6 30-4, 18199-6 #### [facility] CLIA [id number] [address] [place] [address] Nitrofurantoin [Susc] 32 Susceptible Suscep tible <=32 , Intermediate >32 , Resistant >64 [facility] Comment on above: Order Comment: Order ing Facility: [facility] Address: [address] [place], [place] [address] Performed By: #### 6 30-4, 77971-5 #### [facility] CLIA [id number] [address] [place] [address] [place] Piperacillin+Sulbactam ROCIO [Susc] <=4 Susceptible Susceptible <=16 , Intermediate >16 , Resistant >64 [facility] Comment on above: Order Comment: Order ing Facility: [facility] Address: [address] [place] [address] Performed By: #### 6 30-4, 73387-6 #### [facility] CLIA [id number] [address] [place] [address] [place] Tobramycin [Susc] <=1 Susceptible Susceptibl e <=4 , Intermediate >4 , Resistant >8 [facility] Comment on above: Order Comment: Order ing Facility: [facility] Address: [address] [place], [place] [address] Performed By: #### 6 30-4, 85535-6 #### [facility] CLIA [id number] [address] [place] [address] [place] Trimethoprim+Sulfameth oxazole [Susc] <=20 Susceptible Susceptible <=40 , Resistant >40 [facility] Comment on above: Order Comment: Order ing Facility: [facility] Address: [address] [place], [place] [address] Performed By: #### 6 30-4, 49330-2 #### [facility] CLIA [id number] [address] [facility] [place] [address] [place] ED NOTEon 11-26-2021 ED NOTE HNO ID: [id number] Author: Alyx Vergara RN Service: Nursing Author Type: Registered Nurse Type: ED Notes Filed: 11/26/2021 9:20 PM Note Text: Replaced hamilton per Asha DIXON. [facility] ED NOTE HNO ID: [id number] Author: Alyx Vergara RN Service: Nursing Author Type: Registered Nurse Type: ED Notes Filed: 11/26/2021 9:01 PM Note Text: Was instructed to bladder scan pt due to pt having no urine in replaced bag. Bladder scanned 261 mL's the first time. Then 214 mL's the second time. Made Asha ESQUIVEL) aware. [facility] ED NOTE HNO ID: [id number] Author: Alyx Vergara RN Service: Nursing Author Type: Registered Nurse Type: ED Notes Filed: 11/26/2021 9:49 PM Note Text: Flushed 20 mL Hamilton. No leaking noted around tube. [facility] ED PROV NOTEon 11-26-2021 ED PROV NOTE HNO ID: [id number] Author: Asha Clitnon PA-C Service: ? Author Type: Physician Recording Clerk Type: ED Provider Notes Filed: 11/26/2021 10:26 [...] / Clinical Impression Clinical Impressions as of 11/26/219 Acute cystitis with hematuria Urinary retention Elevated [...] culture. Previous and only urine culture in [facility] on 11/07 had no growth. Given dose of Keflex. Prescription for this E scripted to pharmacy. Patient discharged with Hamilton in place, leg bag instructions. Elevated blood pressure noted and improved during stay. No CP, sob, dizziness or any other complaints. Recommend f/u with pcp for recheck. All questions and concerns addre (more content not included)... Normal [facility] Urinalysis complete panel (U )on 11-26-2021 Bacteria LM.HPF (Urine sed) [#/Area] Many Abnormal None Seen [facility] Comment on above: Order Comment: Speci men Type: URINE SPECIMEN Ordering Facility: [facility] Address: [address] [place] [id number] Performed By: #### 6 30-4, 87530-3 #### [facility] CLIA [id number] [address] [place] [address] [place] [address] [place] Bilirubin Ql (U) Negative Normal Negative [facility] Comment on above: Order Comment: Speci men Type: URINE SPECIMEN Ordering Facility: [facility] Address: [address] [place], [place] [address] Performed By: #### 6 30-4, 79236-8 #### [facility] CLIA [id number] [address] [place] [address] [place] Clarity (Unsp spec) Cloudy Abnormal Clear [facility] Comment on above: Order Comment: Speci men Type: URINE SPECIMEN Ordering Facility: [facility] Address: [address] [place] [address] Performed By: #### 6 30-4, 88753-5 #### [facility] CLIA [id number] [address] [place] [address] [place] Color (U) Yellow Normal Yellow [facility] Comment on above: Order Comment: Speci men Type: URINE SPECIMEN Ordering Facility: [facility] Address: [address] [place], [place] [id number] Performed By: #### 6 30-4, 66107-6 #### [facility] CLIA [id number] [address] [place] [address] [place] Epithelial cells LM.HPF (Urine sed) [#/Area] Few Normal [facility] Comment on above: Order Comment: Speci men Type: URINE SPECIMEN Ordering Facility: [facility] Address: [address] [place], [place] [address] Performed By: #### 6 30-4, 38868-0 #### [facility] CLIA [id number] [address] [place] [address] [place] Glucose Test strip (U) [Mass/Vol] Negative Normal Negative [facility] Comment on above: Order Comment: Speci men Type: URINE SPECIMEN Ordering Facility: [facility] Address: [address] [place], [place] [address] Performed By: #### 6 30-4, 53257-5 #### [facility] CLIA [id number] [address] [place] [address] [place] Hemoglobin Ql (U) 2+ Abnormal Negative [facility] Comment on above: Order Comment: Speci men Type: URINE SPECIMEN Ordering Facility: [facility] Address: [address] [place] [address] Performed By: #### 6 30-4, 80654-2 #### [facility] CLIA [id number] [address] [place] [address] [place] Ketones Ql (U) Negative Normal Negative [facility] Comment on above: Order Comment: Speci men Type: URINE SPECIMEN Ordering Facility: [facility] Address: [address] [place] [address] Performed By: #### 6 30-4, 23232-5 #### [facility] CLIA [id number] [address] [place] [address] [place] Leukocyte esterase Test strip Ql (U) 3+ Abnormal Negative [facility] Comment on above: Order Comment: Speci men Type: URINE SPECIMEN Ordering Facility: [facility] Address: [address] [place] [address] Performed By: #### 6 30-4, 45994-0 #### [facility] CLIA [id number] [address] [place] [address] [place] Nitrite Ql (U) Positive Abnormal Negative [facility] Comment on above: Order Comment: Speci men Type: URINE SPECIMEN Ordering Facility: [facility] Address: [address] [place], [place] [id number] Performed By: #### 6 30-4, 51445-1 #### [facility] CLIA [id number] [address] [place] [address] [place] pH (U) 5.5 [pH] Normal 5.0-8.0 [facility] Comment on above: Order Comment: Speci men Type: URINE SPECIMEN Ordering Facility: [facility] Address: [address] [place] [address] Performed By: #### 6 30-4, 18865-4 #### [facility] CLIA [id number] [address] [place] [address] [place] Protein (U) [Mass/Vol] [facility] Comment on above: Order Comment: Speci men Type: URINE SPECIMEN Ordering Facility: [facility] Address: [address] [place] [address] Result Comment: Visi ble blood causes falsely elevated results for analyte Protein. Due to this limitation, Protein will not be reported for patients whose urine contains visible blood. Performed By: #### 6 30-4, 97270-4 #### [facility] CLIA [id number] [address] [place] [address] [place] RBC LM.HPF (Urine sed) [#/Area] 6-10 /HPF Abnormal 0-3 /HPF [facility] Comment on above: Order Comment: Speci men Type: URINE SPECIMEN Ordering Facility: [facility] Address: [address] [place] [address] Performed By: #### 6 30-4, 23251-5 #### [facility] CLIA [id number] [address] [place] [address] [place] Specific gravity (U) [Rel density] 1.009 Normal 1.005-1.030 [facility] Comment on above: Order Comment: Speci men Type: URINE SPECIMEN Ordering Facility: [facility] Address: [address] [place] [address] Performed By: #### 6 30-4, 25606-2 #### [facility] CLIA [id number] [address] [place] [address] [place] Urobilinogen Ql (U) 0.2 EU/dL Normal 0.2-1.0 EU/dL [facility] Comment on above: Order Comment: Speci men Type: URINE SPECIMEN Ordering Facility: [facility] Address: [address] [place] [address] Performed By: #### 6 30-4, 28890-3 #### [facility] CLIA [id number] [address] [place] [address] [place] WBC LM.HPF (Urine sed) [#/Area] 11-25 /HPF Abnormal 0-5 /HPF [facility] Comment on above: Order Comment: Speci men Type: URINE SPECIMEN Ordering Facility: [facility] Address: [address] [place] [address] Performed By: #### 6 30-4, 17249-0 #### [facility] CLIA [id number] [address] [place] [address] [place] [facility]on SARS-CoV-2 (COVID-19) RNA LUANNE+probe Ql (Unsp spec) Not detected Normal NOT DETECTED [facility] Comment on above: Result Comment: This test is not yet approved or cleared by the [place] FDA. When there are no FDA-approved or cleared tests available, and other criteria are met, FDA can make tests available under an emergency access mechanism called an Emergency Use Authorization (EUA). The EUA for this test is supported by the [place] of Health and Human Service's (HHS's) declaration [...] SARS-CoV-2. Performed By: #### C VDTBH #### [facility] [address] [address] [address] Juan Pablo Kaminski Bacteria Ur Culton 08-26-202 2 Bacteria identified Cx Nom (U) No growth (<1,000 CFU/ml) Normal [facility] Comment on above: Order Comment: Speci men Type: URINE SPECIMEN Ordering Facility: [facility] Address: [address] [place] [address] Performed By: #### 6 30-4 #### [facility] [facility] CLIA [id number] [address] [place] [address] [place] Basic metabolic 2000 panelon 11-07-2021 Anion gap [Moles/Vol] 10 mmol/L Normal 9-18 [facility] Comment on above: Order Comment: Speci men Type: URINE SPECIMEN Ordering Facility: [facility] Address: [address] [place], [place] [address] Performed By: #### 6 30-4, 40195-9 #### [facility] CLIA [id number] [address] [place] [address] [place] Calcium [Mass/Vol] 9.1 mg/dL Normal 8.5-10.2 [facility] Comment on above: Order Comment: Speci men Type: URINE SPECIMEN Ordering Facility: [facility] Address: [address] [place], [place] [address] Performed By: #### 6 30-4, 57918-1 #### [facility] CLIA [id number] [address] [place] [address] [place] Chloride [Moles/Vol] 95 mmol/L Low 97-105 [facility] Comment on above: Order Comment: Speci men Type: URINE SPECIMEN Ordering Facility: [facility] Address: [address] [place], [place] [address] Performed By: #### 6 30-4, 75069-9 #### [facility] CLIA [id number] [address] [place] [address] [place] CO2 [Moles/Vol] 25 mmol/L Normal 22-30 [facility] Comment on above: Order Comment: Speci men Type: URINE SPECIMEN Ordering Facility: [facility] Address: [address] [place] [address] Performed By: #### 6 30-4, 62767-5 #### [facility] CLIA [id number] [address] [place] [address] [place] Creatinine [Mass/Vol] 1.25 mg/dL High 0.73-1.22 [facility] Comment on above: Order Comment: Speci men Type: URINE SPECIMEN Ordering Facility: [facility] Address: [address] [place] [address] Performed By: #### 6 30-4, 10661-3 #### [facility] CLIA [id number] [address] [place] [address] [place] ESTIMATED GLOMERULAR FILTRATION RATE 57 mL/min/1.73m??? Low >=60 [facility] Comment on above: Order Comment: Domonique men Type: URINE SPECIMEN Ordering Facility: [facility] Address: [address] [place] [address] Result Comment: Annalise mated Glomerular Filtration Rate [...] actual GFR. Performed By: #### 6 30-4, 61874-5 #### [facility] CLIA [id number] [address] [place] [address] [place] Glucose [Mass/Vol] 129 mg/dL High 74-99 [facility] Comment on above: Order Comment: Ambrocioi men Type: URINE SPECIMEN Ordering Facility: [facility] Address: [address] [place] [address] Result Comment: The [place] [employer] (ADA) provides guidance for cutoff [...] Standards of Medical Care in Diabetes 2016, [place] [employer]. Diabetes Care. 2016.39(Suppl 1). Performed By: #### 6 30-4, 87417-1 #### [facility] CLIA [id number] [address] [place] [address] [place] Potassium [Moles/Vol] 4.6 mmol/L Normal 3.7-5.1 [facility] Comment on above: Order Comment: Speci men Type: URINE SPECIMEN Ordering Facility: [facility] Address: [address] [place] [address] Performed By: #### 6 30-4, 70033-3 #### [facility] CLIA [id number] [address] [place] [address] [place] Sodium [Moles/Vol] 130 mmol/L Low 136-144 [facility] Comment on above: Order Comment: Speci men Type: URINE SPECIMEN Ordering Facility: [facility] Address: [address] [place] [address] Performed By: #### 6 30-4, 88540-6 #### [facility] CLIA [id number] [address] [place] [address] [place] Urea nitrogen [Mass/Vol] 23 mg/dL Normal 9-24 [facility] Comment on above: Order Comment: Speci men Type: URINE SPECIMEN Ordering Facility: [facility] Address: [address] [place] [address] Performed By: #### 6 30-4, 03550-0 #### [facility] CLIA [id number] [address] [place] [address] [place] CBC W Auto Differential pane l (Bld)on 11-07-2021 Basophils/100 WBC (Bld) 0.0 % Normal [facility] Comment on above: Order Comment: Speci men Type: URINE SPECIMEN Ordering Facility: [facility] Address: [address] [place] [address] Performed By: #### 6 30-4, 12395-3 #### [facility] CLIA [id number] [address] [place] [address] [place] Differential cell count method Nom (Bld) Manual Normal [facility] Comment on above: Order Comment: Speci men Type: URINE SPECIMEN Ordering Facility: [facility] Address: [address] [place] [address] Performed By: #### 6 30-4, 53608-0 #### [facility] CLIA [id number] [address] [place] [address] [place] Eosinophils (Bld) [#/Vol] 0.10 10*3/uL Normal <0.46 [facility] Comment on above: Order Comment: Speci men Type: URINE SPECIMEN Ordering Facility: [facility] Address: [address] [place] [address] Performed By: #### 6 30-4, 98384-5 #### [facility] CLIA [id number] [address] [place] [address] [place] Eosinophils/100 WBC (Bld) 1.0 % Normal [facility] Comment on above: Order Comment: Speci men Type: URINE SPECIMEN Ordering Facility: [facility] Address: [address] [place], [place] [address] Performed By: #### 6 30-4, 48154-5 #### [facility] CLIA [id number] [address] [place] [address] [place] Erythrocyte distribution width (RBC) [Ratio] 11.5 % Normal 11.5-15.0 [facility] Comment on above: Order Comment: Speci men Type: URINE SPECIMEN Ordering Facility: [facility] Address: [address] [place], [place] [address] Performed By: #### 6 30-4, 64318-4 #### [facility] CLIA [id number] [address] [place] [address] [place] Hematocrit (Bld) [Volume fraction] 39.8 % Normal 39.0-51.0 [facility] Comment on above: Order Comment: Speci men Type: URINE SPECIMEN Ordering Facility: [facility] Address: [address] [place], [place] [address] Performed By: #### 6 30-4, 26508-3 #### [facility] CLIA [id number] [address] [place] [address] [place] Hemoglobin (Bld) [Mass/Vol] 13.4 g/dL Normal 13.0-17.0 [facility] Comment on above: Order Comment: Speci men Type: URINE SPECIMEN Ordering Facility: [facility] Address: [address] [place], [place] [address] Performed By: #### 6 30-4, 27758-2 #### [facility] CLIA [id number] [address] [place] [address] [place] Lymphocytes (Bld) [#/Vol] 1.67 10*3/uL Normal 1.00-4.00 [facility] Comment on above: Order Comment: Speci men Type: URINE SPECIMEN Ordering Facility: [facility] Address: [address] [place], [place] [address] Performed By: #### 6 30-4, 67966-0 #### [facility] CLIA [id number] [address] [place] [address] [place] Lymphocytes/100 WBC (Bld) 17.0 % Normal [facility] Comment on above: Order Comment: Speci men Type: URINE SPECIMEN Ordering Facility: [facility] Address: [address] [place], [place] [address] Performed By: #### 6 30-4, 49145-2 #### [facility] CLIA [id number] [address] [place] [address] [place] MCH (RBC) [Entitic mass] 31.5 pg Normal 26.0-34.0 [facility] Comment on above: Order Comment: Speci men Type: URINE SPECIMEN Ordering Facility: [facility] Address: [address] [place] [address] Performed By: #### 6 30-4, 85410-9 #### [facility] CLIA [id number] [address] [place] [address] [place] MCHC (RBC) [Mass/Vol] 33.7 g/dL Normal 30.5-36.0 [facility] Comment on above: Order Comment: Speci men Type: URINE SPECIMEN Ordering Facility: [facility] Address: [address] [place] [address] Performed By: #### 6 30-4, 84678-8 #### [facility] CLIA [id number] [address] [place] [address] [place] MCV (RBC) [Entitic vol] 93.4 fL Normal 80.0-100.0 [facility] Comment on above: Order Comment: Speci men Type: URINE SPECIMEN Ordering Facility: [facility] Address: [address] [place] [address] Performed By: #### 6 30-4, 83959-2 #### [facility] CLIA [id number] [address] [place] [address] [place] Neutrophils (Bld) [#/Vol] 6.29 10*3/uL Normal 1.45-7.50 [facility] Comment on above: Order Comment: Speci men Type: URINE SPECIMEN Ordering Facility: [facility] Address: [address] [place] [address] Performed By: #### 6 30-4, 28372-0 #### [facility] CLIA [id number] [address] [place] [address] [place] Neutrophils/100 WBC (Bld) 64.0 % Normal [facility] Comment on above: Order Comment: Speci men Type: URINE SPECIMEN Ordering Facility: [facility] Address: [address] [place] [address] Performed By: #### 6 30-4, 87142-0 #### [facility] CLIA [id number] [address] [place] [address] [place] Nucleated RBC/100 WBC (Bld) [Ratio] 0.0 /100 WBC Normal [facility] Comment on above: Order Comment: Speci men Type: URINE SPECIMEN Ordering Facility: [facility] Address: [address] [place] [address] Performed By: #### 6 30-4, 31889-2 #### [facility] CLIA [id number] [address] [place] [address] [place] PLATELET ESTIMATE Adequate Normal [facility] Comment on above: Order Comment: Speci men Type: URINE SPECIMEN Ordering Facility: [facility] Address: [address] [place] [address] Performed By: #### 6 30-4, 65784-5 #### [facility] CLIA [id number] [address] [place] [address] [place] Platelet mean volume (Bld) [Entitic vol] 10.2 fL Normal 9.0-12.7 [facility] Comment on above: Order Comment: Speci men Type: URINE SPECIMEN Ordering Facility: [facility] Address: [address] [place], [place] [address] Performed By: #### 6 30-4, 27880-6 #### [facility] CLIA [id number] [address] [place] [address] [place] Platelets (Bld) [#/Vol] 258 10*3/uL Normal 150-400 [facility] Comment on above: Order Comment: Speci men Type: URINE SPECIMEN Ordering Facility: [facility] Address: [address] [place], [place] [address] Performed By: #### 6 30-4, 54914-8 #### [facility] CLIA [id number] [address] [place] [address] [place] RBC (Bld) [#/Vol] 4.26 10*6/uL Normal 4.20-6.00 [facility] Comment on above: Order Comment: Speci men Type: URINE SPECIMEN Ordering Facility: [facility] Address: [address] [place], [place] [address] Performed By: #### 6 30-4, 48195-2 #### [facility] CLIA [id number] [address] [place] [address] [place] RED CELL MORPH Reviewed: unremarkable Normal [facility] Comment on above: Order Comment: Speci men Type: URINE SPECIMEN Ordering Facility: [facility] Address: [address] [place], [place] [address] Performed By: #### 6 30-4, 55233-7 #### [facility] CLIA [id number] [address] [place] [address] [place] WAM - ABS BASO 0.00 k/uL Normal <0.11 [facility] Comment on above: Order Comment: Speci men Type: URINE SPECIMEN Ordering Facility: [facility] Address: [address] [place], [place] [address] Performed By: #### 6 30-4, 50803-3 #### [facility] CLIA [id number] [address] [place] [address] [place] WAM - ABS MONO 1.77 k/uL High <0.87 [facility] Comment on above: Order Comment: Speci men Type: URINE SPECIMEN Ordering Facility: [facility] Address: [address] [place], [place] [address] Performed By: #### 6 30-4, 63606-3 #### [facility] CLIA [id number] [address] [place] [address] [place] WAM - MONO% 18.0 % Normal [facility] Comment on above: Order Comment: Speci men Type: URINE SPECIMEN Ordering Facility: [facility] Address: [address] [place] [address] Performed By: #### 6 30-4, 90503-4 #### [facility] CLIA [id number] [address] [place] [address] [place] WAM ABSOLUTE NRBC <0.01 Normal <0.01 [facility] Comment on above: Order Comment: Speci men Type: URINE SPECIMEN Ordering Facility: [facility] Address: [address] [place] [address] Performed By: #### 6 30-4, 86720-5 #### [facility] CLIA [id number] [address] [place] [address] [place] WBC (Bld) [#/Vol] 9.83 10*3/uL Normal 3.70-11.00 [facility] Comment on above: Order Comment: Speci men Type: URINE SPECIMEN Ordering Facility: [facility] Address: [address] [place] [address] Performed By: #### 6 30-4, 00156-2 #### [facility] CLIA [id number] [address] [place] [address] [place] ED NOTEon 11-07-2021 ED NOTE HNO ID: [id number] Author: Yoshi Schumacher RN Service: ? Author Type: Registered Nurse Type: ED Notes Filed: 11/07/2021 5:14 PM Note Text: Pt provided with discharged instructions. Medications gone over and all questions answered. Pt. Left with steady gait with friend for a ride. Normal [facility] ED NOTE HNO ID: [id number] Author: Flaquita Donnelly RN Service: ? Author Type: Registered Nurse Type: ED Notes Filed: 11/07/2021 1:24 PM Note Text: Pt to ED for urinary retention. Pt had appointment with Urology on Wednesday, but was not able to be seen. Pt denies pain, but reports pressure in the bladder. Pt states he is not able to urinate completely and reports dribbling. Normal [facility] ED PROV NOTEon 11-07-2021 ED PROV NOTE HNO ID: [id number] Author: Keely Gutierrez DO Service: Emergency Medicine [...] this Wednesday with his urologist out of [place] but was notified that his urologist had [...] Abnormal; Notable for the following components: Abs Robeson 1.77 (*) <0.87 k/uL All other components [...] cysts one of which is mildly complex. Accounting Manager: LIANA Transcribe Date/Time: Nov 07 2021 2:57P [...] at th (more content not included)... Normal [facility] US KIDNEY/BLADDERon 11-08-19 US KIDNEY/BLADDER * * *Final Report* * * DATE OF EXAM: Nov 07 2021 2:52PM [facility] 1055 - US KIDNEY/BLADDER / PROCEDURE [...] cysts one of which is mildly complex. Accounting Manager: LIANA Transcribe Date/Time: Nov 07 2021 2:57P Dictated by : NEHEMIAS COLBERT MD This examination was interpreted and the report reviewed and electronically signed by: NEHEMIAS COLBERT MD on Nov 07 2021 3:09PM EST [id number] Normal [facility] Urinalysis complete panel (U )on 11-07-2021 Bilirubin Ql (U) Negative Normal Negative [facility] Comment on above: Order Comment: Speci men Type: URINE SPECIMEN Ordering Facility: [facility] Address: [address] [place] [address] Performed By: #### 6 30-4, 53783-9 #### [facility] CLIA [id number] [address] [place] [address] [place] Clarity (Unsp spec) Clear Normal Clear [facility] Comment on above: Order Comment: Speci men Type: URINE SPECIMEN Ordering Facility: [facility] Address: [address] [place] [address] Performed By: #### 6 30-4, 06549-8 #### [facility] CLIA [id number] [address] [place] [address] [place] Color (U) Yellow Normal Yellow [facility] Comment on above: Order Comment: Speci men Type: URINE SPECIMEN Ordering Facility: [facility] Address: [address] [place] [address] Performed By: #### 6 30-4, 21010-3 #### [facility] CLIA [id number] [address] [place] [address] [place] Epithelial cells LM.HPF (Urine sed) [#/Area] Few Normal [facility] Comment on above: Order Comment: Speci men Type: URINE SPECIMEN Ordering Facility: [facility] Address: [address] [place] [address] Performed By: #### 6 30-4, 79909-3 #### [facility] CLIA [id number] [address] [place] [address] [place] Glucose Test strip (U) [Mass/Vol] Negative Normal Negative [facility] Comment on above: Order Comment: Speci men Type: URINE SPECIMEN Ordering Facility: [facility] Address: [address] [place], [place] [address] Performed By: #### 6 30-4, 41682-0 #### [facility] CLIA [id number] [address] [place] [address] STATES [facility] Hemoglobin Ql (U) Negative Normal Negative [facility] Comment on above: Order Comment: Speci men Type: URINE SPECIMEN Ordering Facility: [facility] Address: [address] [place] [address] Performed By: #### 6 30-4, 84748-1 #### [facility] CLIA [id number] [address] [place] [address] [place] Hyaline casts (Urine sed) [#/Area] 1-3 /LPF Abnormal 0 /LPF [facility] Comment on above: Order Comment: Speci men Type: URINE SPECIMEN Ordering Facility: [facility] Address: [address] [place] [address] Performed By: #### 6 30-4, 30772-4 #### [facility] CLIA [id number] [address] [place] [address] [place] Ketones Ql (U) Trace Abnormal Negative [facility] Comment on above: Order Comment: Speci men Type: URINE SPECIMEN Ordering Facility: [facility] Address: [address] [place], [place] [address] Performed By: #### 6 30-4, 40469-9 #### [facility] CLIA [id number] [address] [place] [address] [place] Leukocyte esterase Test strip Ql (U) Negative Normal Negative [facility] Comment on above: Order Comment: Speci men Type: URINE SPECIMEN Ordering Facility: [facility] Address: [address] [place], [place] [address] Performed By: #### 6 30-4, 80896-4 #### [facility] CLIA [id number] [address] [place] [address] [place] Nitrite Ql (U) Negative Normal Negative [facility] Comment on above: Order Comment: Speci men Type: URINE SPECIMEN Ordering Facility: [facility] Address: [address] [place] [address] Performed By: #### 6 30-4, 93254-8 #### [facility] CLIA [id number] [address] [place] [address] [place] pH (U) 5.5 [pH] Normal 5.0-8.0 [facility] Comment on above: Order Comment: Speci men Type: URINE SPECIMEN Ordering Facility: [facility] Address: [address] [place] [address] Performed By: #### 6 30-4, 21456-7 #### [facility] CLIA [id number] [address] [place] [address] [place] Protein (U) [Mass/Vol] Negative Normal Negative [facility] Comment on above: Order Comment: Speci men Type: URINE SPECIMEN Ordering Facility: [facility] Address: [address] [place] [address] Performed By: #### 6 30-4, 05860-5 #### [facility] CLIA [id number] [address] [place] [address] [place] RBC LM.HPF (Urine sed) [#/Area] 0-3 /HPF Normal 0-3 /HPF [facility] Comment on above: Order Comment: Speci men Type: URINE SPECIMEN Ordering Facility: [facility] Address: [address] [place] [address] Performed By: #### 6 30-4, 33189-6 #### [facility] CLIA [id number] [address] [place] [address] [place] Specific gravity (U) [Rel density] 1.024 Normal 1.005-1.030 [facility] Comment on above: Order Comment: Speci men Type: URINE SPECIMEN Ordering Facility: [facility] Address: [address] [place] [address] Performed By: #### 6 30-4, 92376-5 #### [facility] CLIA [id number] [address] [place] [address] OF [facility] Urobilinogen Ql (U) 0.2 EU/dL Normal 0.2-1.0 EU/dL [facility] Comment on above: Order Comment: Speci men Type: URINE SPECIMEN Ordering Facility: [facility] Address: [address] [place] [address] Performed By: #### 6 30-4, 72544-9 #### [facility] CLIA [id number] [address] [place] [address] [place] WBC LM.HPF (Urine sed) [#/Area] 0-5 /HPF Normal 0-5 /HPF [facility] Comment on above: Order Comment: Speci men Type: URINE SPECIMEN Ordering Facility: [facility] Address: [address] [place] [address] Performed By: #### 6 30-4, 75141-4 #### [facility] CLIA [id number] [address] [place] [address] [place] Ambulatory Visit Summaryon 0 10-28-2021 Ambulatory Visit Summary NORBERTO WASHINGTON :1940 Visit Date:10/28/2021 Ambulatory Visit Instructions Your Diagnosis BPH with urinary obstruction Nocturia Post-void dribbling Incomplete emptying of bladder Urinary incontinence Tests Performed Urnls Dip Stick Auto w/o Microscopy POC 45408 Your Care Team Attending Physician - Billy [...] [facility] [address], [place] [id number]- Medications What How Much When Instructions Unchanged [...] Urnls Dip Stick Auto w/o Microscopy POC 44796 (10/28/2021) Bilirubin Urine Dipstick - Negative Blood Urine Dipstick - Negative Glucose Urine Dipstick - Negative Ketones Urine Dipstick - Negative Leukocytes Urine Dipstick - Negative Nitrite Urine Dipstick - Negative Protein Urine Dipstick - Negative Specific [place] Urine Dipstick - 1.015 Urine Appearance Urine [...] ? Urina (more content not included)... Normal [facility] Patient Educationon 10-29-19 Patient Education [...] Follow these instructions at home: ? Take [id number] and prescription medicines only as told by [...] You d (more content not included)... Normal [facility] Urology Office/Clinic Noteon 10-28-2021 Urology [...] urine and/or bladder capacity by US- non-imaging 51904 PSA Total Urnls Dip Stick Auto w/o Microscopy POC 61877 Urology Procedure Order 2. Nocturia (R35.1: Nocturia) moderate, Variable 2-5 times per night Ordered: Measure Post Void residual urine and/or bladder capacity by US- non-imaging 96128 PSA Total Urology Procedure Order 3. Post-void dribbling (N39.43: Post-v (more content not included)... Normal [facility] Comment on above: Result Comment: Elec tronically Signed By: Billy Connolly MD, Paul Valdes\.br\Date and Time Signed: 10/28/21 08:47 EDT\.br\Electronically Co-Signed By: Jessie Rivera\.br\Date and Time Co-Signed: 10/28/21 08:39 EDT MICROALBUMIN URINEon 022 Albumin, Urine 5.6 ug/mL Normal Not Estab. [facility] Comment on above: Performed By: #### M ALBLC #### [facility] [address] [place] [address] Dr. Juan Pablo Kaminski US CAROTID ART [...] SAMY TORRES Date: 2021-10-23 17:19 Normal [facility] CBC AUTO DIFFon 10-21-2021 BASO # 0.0 103/ul Normal 0.0-0.1 [facility] Comment on above: Performed By: #### A 1C #### [facility] [address] [address] [address] Juan Pablo Kaminski Basophils/100 WBC (Bld) 0.5 % Normal 0.2-2.0 [facility] Comment on above: Performed By: #### A 1C #### [facility] [address] [place] [address] Dr. Juan Pablo Kaminski EO # 0.3 103/ul Normal 0.0-0.7 [facility] Comment on above: Performed By: #### A 1C #### [facility] [address] [place] [address] Dr. Juan Pablo Kaminski Eosinophils/100 WBC (Bld) 3.6 % Normal 0.9-7.0 [facility] Comment on above: Performed By: #### A 1C #### [facility] [address] [place] [address] Dr. Juan Pablo Kaminski Erythrocyte distribution width (RBC) [Ratio] 11.1 % Normal 11.0-15.0 [facility] Comment on above: Performed By: #### A 1C #### [facility] [address] [place] [address] Dr. Juan Pablo Kaminski Hematocrit (Bld) [Volume fraction] 41.8 % Critically low 42.0-54.0 [facility] Comment on above: Performed By: #### A 1C #### [facility] [address] [place] [address] Dr. Juan Pablo Kaminski Hemoglobin (Bld) [Mass/Vol] 14.1 g/dL Normal 14.0-18.0 [facility] Comment on above: Performed By: #### A 1C #### [facility] [address] [place] [address] Dr. Juan Pablo Kaminski IG # 0.03 10e3/ul Normal 0.00-0.03 [facility] Comment on above: Performed By: #### A 1C #### [facility] [address] [place] [address] Dr. Juan Pablo Kaminsik IG % 0.4 % Normal 0.0-0.5 [facility] Comment on above: Performed By: #### A 1C #### [facility] [address] [place] [address] Dr. Juan Pablo Kaminski LYMPH # 2.2 103/ul Normal 1.2-3.8 [facility] Comment on above: Performed By: #### A 1C #### [facility] [address] [place] [address] Dr. Juan Pablo Kaminski Lymphocytes/100 WBC (Bld) 29.4 % Normal 20.5-60.0 [facility] Comment on above: Performed By: #### A 1C #### [facility] [address] [place] [address] Dr. Juan Pablo Kaminski MANUAL DIFF REQ NO Normal [facility] Comment on above: Performed By: #### A 1C #### [facility] [address] [place] [address] Dr. Juan Pablo Kaminski MCH (RBC) [Entitic mass] 31.8 pg Normal 25.9-34.0 [facility] Comment on above: Performed By: #### A 1C #### [facility] [address] [place] [address] Dr. Juan Pablo Kaminski MCHC (RBC) [Mass/Vol] 33.7 g/dL Normal 29.9-35.2 [facility] Comment on above: Performed By: #### A 1C #### [facility] [address] [place] [address] Dr. Juan Pablo Kaminski MCV (RBC) [Entitic vol] 94.1 fL Critically high 80.0-94.0 [facility] Comment on above: Performed By: #### A 1C #### [facility] [address] [place] [address] Dr. Juan Pablo Kaminski MONO # 0.9 103/ul Critically high 0.3-0.8 [facility] Comment on above: Performed By: #### A 1C #### [facility] [address] [place] [address] Dr. Juan Pablo Kaminski Monocytes/100 WBC (Bld) 11.7 % Normal 1.7-12.0 [facility] Comment on above: Performed By: #### A 1C #### [facility] [address] [address] [address] Juan Pablo Kaminski NEUT # 4.0 103/ul Normal 1.4-6.5 [facility] Comment on above: Performed By: #### A 1C #### [facility] [address] [address] [address] Juan Pablo Kaminski Neutrophils/100 WBC (Bld) 54.4 % Normal 43.0-75.0 [facility] Comment on above: Performed By: #### A 1C #### [facility] [address] [address] [address] Juan Pablo Kaminski Platelet mean volume (Bld) [Entitic vol] 8.6 fL Critically low 9.5-13.5 [facility] Comment on above: Performed By: #### A 1C #### [facility] [address] [place] [address] Dr. Juan Pablo Kaminski PLT 231 103/ul Normal 150-450 [facility] Comment on above: Performed By: #### A 1C #### [facility] [address] [place] [address] Dr. Juan Pablo Kaminski RBC 4.44 106/ul Critically low 4.70-6.10 [facility] Comment on above: Performed By: #### A 1C #### [facility] [address] [place] [address] Dr. Juan Pablo Kaminski WBC 7.3 103/ul Normal 4.0-11.0 [facility] Comment on above: Performed By: #### A 1C #### [facility] [address] [place] [address] Dr. Juan Pablo Kaminski DIRECT LDLon 10-21-2021 Cholesterol in LDL [Mass/Vol] 106 mg/dL Normal [facility] Comment on above: Performed By: #### A LT, BMP, DLDL #### [facility] [address] [id number] Juan Pablo Kaminski DLDL NORMAL SEE BELOW Normal [facility] Comment on above: Result Comment: <100 mg/dl OPTIMAL 100 - 129 mg/dl NEAR OR ABOVE OPTIMAL 130 - 159 mg/dl BORDERLINE HIGH 160 - 189 mg/dl HIGH >190 mg/dl VERY HIGH Performed By: #### A LT, BMP, DLDL #### [facility] [address] [place] [address] Dr. Juan Pablo Kaminski GLYCOHEMOGLOBIN A1Con 2021 ADA RECOMMENDATION SEE BELOW Normal [facility] Comment on above: Result Comment: ADA RECOMMENDED LIMIT 4.0 - 6.0 ADA THERAPEUTIC TARGET < 7.0 ACTION SUGGESTED > 7.0 Performed By: #### A 1C #### [facility] [address] [place] [address] Dr. Juan Pablo Kaminski Glucose [Mass/Vol] 120 mg/dL Normal [facility] Comment on above: Performed By: #### A 1C #### [facility] [address] [place] [address] Dr. Juan Pablo Kaminski HbA1c (Bld) [Mass fraction] 5.8 % Normal 4.5-6.2 [facility] Comment on above: Performed By: #### A 1C #### [facility] [address] [place] [address] Dr. Juan Pablo Kaminski PROF CHEM 8 (BAS METB)on Anion gap [Moles/Vol] 12.7 mmol/L Normal [facility] Comment on above: Performed By: #### A 1C #### [facility] [address] [place] [address] Dr. Juan Pablo Kaminski Calcium [Mass/Vol] 8.7 mg/dL Normal 8.5-10.1 [facility] Comment on above: Performed By: #### A 1C #### [facility] [address] [place] [address] Dr. Juan Pablo Kaminski Chloride [Moles/Vol] 98 mmol/L Normal 98-107 [facility] Comment on above: Performed By: #### A 1C #### [facility] [address] [place] [address] Dr. Juan Pablo Kaminski CO2 [Moles/Vol] 28.0 mmol/L Normal 21.0-32.0 [facility] Comment on above: Performed By: #### A 1C #### [facility] [address] [place] [address] Dr. Juan Pablo Kaminski Creatinine [Mass/Vol] 1.07 mg/dL Normal 0.70-1.30 [facility] Comment on above: Performed By: #### A 1C #### [facility] [address] [place] [address] Dr. Juan Pablo Kaminski EGFR-AF HAITIAN >60 Normal >=60 [facility] Comment on above: Performed By: #### A 1C #### [facility] [address] [place] [address] Dr. Juan Pablo Kaminski EGFR-NON AF HAITIAN >60 Normal >=60 [facility] Comment on above: Performed By: #### A 1C #### [facility] [address] [place] [address] Dr. Juan Pablo Kaminski Glucose [Mass/Vol] 133 mg/dL Critically high 74-106 [facility] Comment on above: Performed By: #### A 1C #### [facility] [address] [place] [address] Dr. Juan Pablo Kaminski Potassium [Moles/Vol] 4.7 mmol/L Normal 3.5-5.1 [facility] Comment on above: Performed By: #### A 1C #### [facility] [address] [place] [address] Dr. Juan Pablo Kaminski Sodium [Moles/Vol] 134 mmol/L Critically low 136-145 [facility] Comment on above: Performed By: #### A 1C #### [facility] [address] [place] [address] Dr. Juan Pablo Kaminski Urea nitrogen [Mass/Vol] 17.0 mg/dL Normal 7.0-18.0 [facility] Comment on above: Performed By: #### A 1C #### [facility] [address] [place] [address] Dr. Juan Pablo Kaminski Urea nitrogen/Creatinine [Mass ratio] 15.9 mg/mg Normal [facility] Comment on above: Performed By: #### A 1C #### [facility] [address] [place] [address] Dr. Juan Pablo Kaminski [facility] 10-21-2021 ALT [Catalytic activity/Vol] 31 U/L Normal 16-63 [facility] Comment on above: Performed By: #### A 1C #### [facility] [address] [address] [address] Juan Pablo Kaminski GLYCOHEMOGLOBIN A1Con 2021 ADA RECOMMENDATION SEE BELOW Normal [facility] Comment on above: Result Comment: ADA RECOMMENDED LIMIT 4.0 - 6.0 ADA THERAPEUTIC TARGET < 7.0 ACTION SUGGESTED > 7.0 Performed By: #### A 1C #### [facility] [address] [address] [address] Juan Pablo Kaminski Glucose [Mass/Vol] 131 mg/dL Normal [facility] Comment on above: Performed By: #### A 1C #### [facility] [address] [address] [address] Juan Pablo Kaminski HbA1c (Bld) [Mass fraction] 6.2 % Normal 4.5-6.2 [facility] Comment on above: Performed By: #### A 1C #### [facility] [address] [address] [address] Juan Pablo Kaminski Vital Signs Date Time Vital Sign Value Performing Clinician Denis coles 07-09-2023 13:38-0400 Body height 190.5 cm DO Campbell Ball Work Phone: [facility] 07-09-2023 13:38-0400 Body mass index (BMI) [Ratio] 28 kg/m2 DO Campbell Ball Work Phone: [facility] 07-09-2023 13:38-0400 Body weight 101.6 kg DO Campbell Ball Work Phone: [facility] 07-09-2023 13:38-0400 Diastolic blood pressure 60 mm[Hg] DO Campbell Ball Work Phone: [facility] 07-09-2023 13:38-0400 Heart rate 78 /min DO Campbell Ball Work Phone: [facility] 07-09-2023 13:38-0400 Systolic blood pressure 143 mm[Hg] DO Campbell Ball Work Phone: [facility] 06-23-2023 09:16-0400 Body height 190.5 cm DO Campbell Ball Work Phone: [facility] 06-23-2023 09:16-0400 Body mass index (BMI) [Ratio] 28 kg/m2 DO Campbell Ball Work Phone: [facility] 06-23-2023 09:16-0400 Body weight 101.6 kg DO Campbell Ball Work Phone: [facility] 06-23-2023 09:16-0400 Diastolic blood pressure 64 mm[Hg] DO Campbell Ball Work Phone: [facility] 06-23-2023 09:16-0400 Heart rate 69 /min DO Campbell Ball Work Phone: [facility] 06-23-2023 09:16-0400 Respiratory rate 16 /min DO Campbell Ball Work Phone: [facility] 06-23-2023 09:16-0400 Systolic blood pressure 147 mm[Hg] DO Campbell Ball Work Phone: [facility] 05-21-2023 10:53-0500 Body height 190.5 cm DO Campbell Ball Work Phone: [facility] 05-21-2023 10:53-0500 Body mass index (BMI) [Ratio] 27 kg/m2 DO Campbell Ball Work Phone: [facility] 05-21-2023 10:53-0500 Body weight 98.03 kg DO Campbell Ball Work Phone: [facility] 05-21-2023 10:53-0500 Diastolic blood pressure 77 mm[Hg] DO Campbell Ball Work Phone: [facility] 05-21-2023 10:53-0500 Heart rate 76 /min DO Campbell Ball Work Phone: [facility] 05-21-2023 10:53-0500 Respiratory rate 12 /min DO Campbell Ball Work Phone: [facility] 05-21-2023 10:53-0500 Systolic blood pressure 133 mm[Hg] DO Campbell Ball Work Phone: [facility] 05-15-2023 13:10-0500 Body temperature 98.6 [degF] DO Campbell Ball Work Phone: [facility] 05-15-2023 13:10-0500 Diastolic blood pressure 90 mm[Hg] DO Campbell Ball Work Phone: [facility] 05-15-2023 13:10-0500 Heart rate 90 /min DO Campbell Ball Work Phone: [facility] 05-15-2023 13:10-0500 Respiratory rate 18 /min DO Campbell Ball Work Phone: [facility] 05-15-2023 13:10-0500 SaO2% (BldA) [Mass fraction] 97 % DO Campbell Ball Work Phone: [facility] 05-15-2023 13:10-0500 Systolic blood pressure 181 mm[Hg] DO Campbell Ball Work Phone: [facility] 05-15-2023 10:56-0500 Body height 190.5 cm DO Campbell Ball Work Phone: [facility] 05-15-2023 10:56-0500 Body weight 99.9 kg DO Campbell Ball Work Phone: [facility] 04-21-2023 14:30-0500 Body height 190.5 cm Campbell Ball Other [facility] [employer] Other 04-21-2023 14:30-0500 Body mass index (BMI) [Ratio] 28.07 kg/m2 Campbell Ball Other [facility] [employer] Other 04-21-2023 14:30-0500 Body weight 101.88 kg Campbell Ball Other [employer] Other 04-21-2023 14:30-0500 Diastolic blood pressure 68 mm[Hg] Campbell Ball Other [employer] Other 04-21-2023 14:30-0500 Respiratory rate 12 /min Campbell Ball Other [employer] Other 04-21-2023 14:30-0500 Systolic blood pressure 129 mm[Hg] Campbell Ball Other [employer] Other 03-17-2023 10:30-0500 Body height 190.5 cm Campbell Ball Other [employer] Other 03-17-2023 10:30-0500 Body mass index (BMI) [Ratio] 27.55 kg/m2 Campbell Ball Other [employer] Other 03-17-2023 10:30-0500 Body weight 99.97 kg Campbell Ball Other [employer] Other 03-17-2023 10:30-0500 Diastolic blood pressure 67 mm[Hg] Campbell Ball Other [employer] Other 03-17-2023 10:30-0500 Respiratory rate 12 /min Campbell Ball Other [employer] Other 03-17-2023 10:30-0500 Systolic blood pressure 159 mm[Hg] Campbell Ball Other [employer] Other 02-23-2023 09:30-0500 Body height 190.5 cm Campbell Ball Other [employer] Other 02-23-2023 09:30-0500 Body mass index (BMI) [Ratio] 28.02 kg/m2 Campbell Ball Other [employer] Other 02-23-2023 09:30-0500 Body weight 101.7 kg Campbell Ball Other [employer] Other 02-23-2023 09:30-0500 Diastolic blood pressure 78 mm[Hg] Campbell Ball Other [employer] Other 02-23-2023 09:30-0500 Respiratory rate 12 /min Campbell Ball Other [employer] Other 02-23-2023 09:30-0500 Systolic blood pressure 157 mm[Hg] Campbell Ball Other [employer] Other 02-19-2023 10:45-0500 Body height 190.5 cm Campbell Ball Other [employer] Other 02-19-2023 10:45-0500 Body mass index (BMI) [Ratio] 28 kg/m2 Campbell Ball Other [employer] Other 02-19-2023 10:45-0500 Body weight 101.61 kg Campbell Ball Other [employer] Other 02-19-2023 10:45-0500 Diastolic blood pressure 72 mm[Hg] Campbell Ball Other [employer] Other 02-19-2023 10:45-0500 Respiratory rate 12 /min Campbell Ball Other [employer] Other 02-19-2023 10:45-0500 Systolic blood pressure 144 mm[Hg] Campbell Ball Other [employer] Other 02-02-2023 13:37-0500 Body weight 102.06 kg Leticia Milian APRN.[facility] Work Phone: [facility] 02-02-2023 13:37-0500 Diastolic blood pressure 70 mm[Hg] Leticia Denver [employer] Work Phone: [facility] 02-02-2023 13:37-0500 Heart rate 65 /min Leticia Rukhsana [employer] Work Phone: [facility] 02-02-2023 13:37-0500 Systolic blood pressure 146 mm[Hg] Leticia Rukhsana [employer] Work Phone: [facility] 09-22-2022 12:15-0400 Body height 190.5 cm Campbell Ball Other [employer] Other 09-22-2022 12:15-0400 Diastolic blood pressure 82 mm[Hg] Campbell Ball Other [employer] Other 09-22-2022 12:15-0400 Systolic blood pressure 135 mm[Hg] Campbell Ball Other [employer] Other 09-17-2022 09:00-0400 Body height 190.5 cm Campbell Ball Other [employer] Other 09-17-2022 09:00-0400 Body mass index (BMI) [Ratio] 27.57 kg/m2 Campbell Ball Other [employer] Other 09-17-2022 09:00-0400 Body weight 100.06 kg Campbell Ball Other [employer] Other 09-17-2022 09:00-0400 Diastolic blood pressure 62 mm[Hg] Campbell Ball Other [employer] Other 09-17-2022 09:00-0400 Respiratory rate 12 /min Campbell Ball Other [employer] Other 09-17-2022 09:00-0400 Systolic blood pressure 128 mm[Hg] Campbell Ball Other [employer] Other 06-18-2022 10:00-0400 Body height 190.5 cm Campbell Ball Other [employer] Other 06-18-2022 10:00-0400 Body mass index (BMI) [Ratio] 28.02 kg/m2 Campbell Ball Other [employer] Other 06-18-2022 10:00-0400 Body weight 101.7 kg Campbell Ball Other [employer] Other 06-18-2022 10:00-0400 Diastolic blood pressure 62 mm[Hg] Campbell Ball Other [employer] Other 06-18-2022 10:00-0400 Respiratory rate 12 /min Campbell Ball Other [employer] Other 06-18-2022 10:00-0400 Systolic blood pressure 119 mm[Hg] Campbell Ball Other [employer] Other 04-08-2022 12:00-0500 Body height 190.5 cm Campbell Ball Other [employer] Other 04-08-2022 12:00-0500 Body mass index (BMI) [Ratio] 27.82 kg/m2 Campbell Ball Other [employer] Other 04-08-2022 12:00-0500 Body temperature 97.1 [degF] Campbell Ball Other [employer] Other 04-08-2022 12:00-0500 Body weight 100.97 kg Campbell Ball Other [employer] Other 04-08-2022 12:00-0500 Diastolic blood pressure 68 mm[Hg] Campbell Ball Other [employer] Other 04-08-2022 12:00-0500 SaO2% (BldA) [Mass fraction] 97 % Campbell Ball Other [employer] Other 04-08-2022 12:00-0500 Systolic blood pressure 124 mm[Hg] Campbell Ball Other [employer] Other 03-20-2022 10:00-0500 Body height 190.5 cm Campbell Ball Other [employer] Other 03-20-2022 10:00-0500 Body mass index (BMI) [Ratio] 27.95 kg/m2 Campbell Ball Other [employer] Other 03-20-2022 10:00-0500 Body weight 101.42 kg Campbell Ball Other [employer] Other 03-20-2022 10:00-0500 Diastolic blood pressure 60 mm[Hg] Campbell Ball Other [employer] Other 03-20-2022 10:00-0500 Respiratory rate 12 /min Campbell Ball Other [employer] Other 03-20-2022 10:00-0500 Systolic blood pressure 112 mm[Hg] Campbell Ball Other [employer] Other 01-08-2022 08:47-0400 Body weight 97.52 kg Leonard Dugan MD Work Phone: [facility] 01-08-2022 08:47-0400 Diastolic blood pressure 61 mm[Hg] Leonard Dugan MD Work Phone: [facility] 01-08-2022 08:47-0400 Heart rate 72 /min Leonard Dugan MD Work Phone: [facility] 01-08-2022 08:47-0400 Systolic blood pressure 139 mm[Hg] Leonard Dugan MD Work Phone: [facility] 12-26-2021 08:32-0400 Body temperature 98 [degF] DO Campbell Ball Work Phone: [facility] 12-26-2021 08:32-0400 Diastolic blood pressure 62 mm[Hg] DO Campbell Ball Work Phone: [facility] 12-26-2021 08:32-0400 Heart rate 75 /min DO Campbell Ball Work Phone: [facility] 12-26-2021 08:32-0400 Respiratory rate 18 /min DO Campbell Ball Work Phone: [facility] 12-26-2021 08:32-0400 SaO2% (BldA) [Mass fraction] 98 % DO Campbell Ball Work Phone: [facility] 12-26-2021 08:32-0400 Systolic blood pressure 146 mm[Hg] DO Campbell Ball Work Phone: [facility] 12-17-2021 16:22-0400 Body height 190.5 cm DO Campbell Ball Work Phone: [facility] 12-17-2021 16:22-0400 Body weight 97.52 kg DO Campbell Ball Work Phone: [facility] 12-17-2021 16:19-0400 Body temperature 98.4 [degF] DO Campbell Ball Work Phone: [facility] 12-17-2021 16:19-0400 Diastolic blood pressure 63 mm[Hg] DO Campbell Ball Work Phone: [facility] 12-17-2021 16:19-0400 Heart rate 66 /min DO Campbell Ball Work Phone: [facility] 12-17-2021 16:19-0400 Respiratory rate 16 /min DO Campbell Ball Work Phone: [facility] 12-17-2021 16:19-0400 SaO2% (BldA) [Mass fraction] 96 % DO Campbell Ball Work Phone: [facility] 12-17-2021 16:19-0400 Systolic blood pressure 135 mm[Hg] DO Campbell Ball Work Phone: [facility] 12-16-2021 14:41-0400 Diastolic blood pressure 62 mm[Hg] Leonard Dugan MD Work Phone: [facility] 12-16-2021 14:41-0400 Heart rate 69 /min Leonard Dugan MD Work Phone: [facility] 12-16-2021 14:41-0400 Respiratory rate 16 /min Leonard Dugan MD Work Phone: [facility] 12-16-2021 14:41-0400 Systolic blood pressure 141 mm[Hg] Leonard Dugan MD Work Phone: [facility] 12-11-2021 18:25-0400 Body temperature 97.5 [degF] DO Campbell Ball Work Phone: [facility] 12-11-2021 18:25-0400 Diastolic blood pressure 88 mm[Hg] DO Campbell Ball Work Phone: [facility] 12-11-2021 18:25-0400 Heart rate 67 /min DO Campbell Ball Work Phone: [facility] 12-11-2021 18:25-0400 Respiratory rate 20 /min DO Campbell Ball Work Phone: [facility] 12-11-2021 18:25-0400 SaO2% (BldA) [Mass fraction] 99 % DO Campbell Ball Work Phone: [facility] 12-11-2021 18:25-0400 Systolic blood pressure 175 mm[Hg] DO Campbell Ball Work Phone: [facility] 12-11-2021 16:57-0400 Body height 190.5 cm DO Campbell Ball Work Phone: [facility] 12-11-2021 16:57-0400 Body weight 98.5 kg DO Campbell Ball Work Phone: [facility] 12-10-2021 10:50-0400 Body weight 95.25 kg Nurse Emelia Work Phone: [facility] 12-10-2021 10:50-0400 Diastolic blood pressure 80 mm[Hg] Nurse Emelia Work Phone: [facility] 12-10-2021 10:50-0400 Heart rate 59 /min Nurse Emelia Work Phone: [facility] 12-10-2021 10:50-0400 Systolic blood pressure 152 mm[Hg] Nurse Emelia Work Phone: [facility] 12-09-2021 14:27-0400 Body weight 95.25 kg [employer] [place] Work Phone: [facility] 12-09-2021 14:27-0400 Diastolic blood pressure 68 mm[Hg] [employer] [place] Work Phone: [facility] 12-09-2021 14:27-0400 Heart rate 70 /min [employer] [place] Work Phone: [facility] 12-09-2021 14:27-0400 Systolic blood pressure 164 mm[Hg] [employer] [place] Work Phone: [facility] 11-12-2021 11:23-0400 Body weight 96.16 kg Leonard Dugan MD Work Phone: [facility] 11-12-2021 11:23-0400 Diastolic blood pressure 73 mm[Hg] Leonard Dugan MD Work Phone: [facility] 11-12-2021 11:23-0400 Heart rate 56 /min Leonard Dugan MD Work Phone: [facility] 11-12-2021 11:23-0400 Systolic blood pressure 162 mm[Hg] Leonard Dugan MD Work Phone: [facility] Encounters Encounter Date Encounter Type Care Provider Facility Start: 07-12-2023 End: 07-12-2023 ambulatory Jhon Tejada Facility:[facility] Start: 07-12-2023 End: 07-12-2023 ambulatory DO Campbell Ball Work Phone: [facility] Work Phone: Start: 07-12-2023 End: 07-12-2023 Departed Referred DO Campbell Ball Work Phone: [facility] Start: 07-09-2023 End: 07-09-2023 ambulatory DO Campbell Ball Work Phone: [facility] Work Phone: Start: 07-09-2023 End: 07-09-2023 Patient encounter procedure DO Campbell Ball Work Phone: [facility] Physician [facility] Work Phone: Start: 07-06-2023 Non-patient / Non-visit DO Lenin frank Ball Work Phone: [facility] Physician [facility] Work Phone: Start: 06-23-2023 End: 06-23-2023 ambulatory DO Campbell Ball Work Phone: [facility] Work Phone: Start: 06-23-2023 End: 06-23-2023 Patient encounter procedure DO Campbell Ball Work Phone: Formerly [facility], [facility] Physician [facility] Work Phone: Start: 05-31-2023 Non-patient / Non-visit DO Lenin monika Ball Work Phone: Formerly [facility], [facility] Physician [facility] Work Phone: Start: 05-21-2023 End: 05-21-2023 Patient encounter procedure DO Campbell Ball Work Phone: Formerly [facility], [facility] Physician [facility] Work Phone: Start: 05-15-2023 End: 05-15-2023 Emergency department patient visit Low Mcdanielzack Facility:[facility] Start: 05-15-2023 End: 05-15-2023 Emergency department patient visit DO Campbell Naranjo Work Phone: [facility] Work Phone: Start: 05-03-2023 Non-patient / Non-visit DO Lenin Naranjo Work Phone: Formerly [facility], [facility] Physician Group-[facility] Work Phone: Start: 04-30-2023 Non-patient / Non-visit DO Lenin Naranjo Work Phone: Formerly [facility], [facility] Physician [facility] Work Phone: Start: 04-21-2023 End: 04-21-2023 ambulatory Campbell Ball Other [employer] Other Start: 04-21-2023 Transitional care manage srvc 14 day discharge Campbell Ball [facility] Start: 04-19-2023 End: 04-19-2023 ambulatory Campbell Ball Other [employer] Other Start: 04-19-2023 Telephone encounter Campbell Ball [facility] Start: 04-15-2023 End: 04-15-2023 ambulatory Campbell Ball Other [employer] Other Start: 04-15-2023 Telephone encounter Campbell Ball [facility] Start: 03-17-2023 End: 03-17-2023 ambulatory Campbell Ball Other [employer] Other Start: 03-17-2023 Transitional care manage srvc 14 day discharge Campbell Ball [facility] Start: 03-04-2023 End: 03-04-2023 ambulatory Campbell Ball Other [employer] Other Start: 03-04-2023 Telephone encounter Campbell Ball [facility] Start: 02-23-2023 End: 02-23-2023 ambulatory Campbell Naranjo Other [employer] Other Start: 02-23-2023 Office outpatient vi sit 15 minutes Campbell Naranjo [facility] Start: 02-23-2023 Telephone encounter Campbell SINGH G [facility] Start: 02-19-2023 End: 02-19-2023 ambulatory Campbell Naranjo Other [employer] Other Start: 02-19-2023 Office outpatient vi sit 15 minutes Campbell Naranjo [facility] Start: 02-02-2023 End: 02-02-2023 ambulatory LETICIA MILIAN Facility:[facility] Start: 02-02-2023 End: 02-02-2023 Patient encounter procedure Leticia Milian RELAY MAN.HYPOID GEAR GENERATOR Work Phone: Urology Comment on above: BPH with obstruction /lower urinary tract symptoms (Primary Dx); Recurrent UTI; Weak urinary stream Start: 01-19-2023 End: 01-19-2023 ambulatory LETICIA MILIAN Facility:[facility] Start: 01-13-2023 End: 01-13-2023 Emergency department patient visit Low Carter Facility:[facility] Start: 01-13-2023 End: 01-13-2023 Emergency department patient visit DO Campbell Naranjo Work Phone: [facility] Work Phone: Start: 12-21-2022 End: 12-21-2022 ambulatory Campbell Naranjo Other [employer] Other Start: 12-21-2022 Telephone encounter Campbell SINGH G [facility] Start: 09-22-2022 End: 09-22-2022 ambulatory Campbell Naranjo Other [employer] Other Start: 09-22-2022 Office outpatient vi sit 15 minutes Campbell Naranjo [facility] Start: 09-20-2022 End: 09-20-2022 ambulatory Cornell Baptiste Other [employer] Other Start: 09-20-2022 Encounter by gabbi Baptiste [facility] Start: 09-17-2022 End: 09-17-2022 ambulatory Campbell Naranjo Other [employer] Other Start: 09-17-2022 Office outpatient vi sit 25 minutes Campbell Naranjo [facility] Start: 09-15-2022 End: 09-15-2022 ambulatory Cornell Baptiste Other [employer] Other Start: 09-15-2022 Encounter by gabbi Baptiste [facility] Start: 07-28-2022 End: 07-28-2022 ambulatory LETICIA MILIAN Facility:[facility] Start: 07-20-2022 End: 07-20-2022 ambulatory LETICIA MILIAN Facility:[facility] Start: 06-25-2022 End: 06-26-[address] CAMPBELL NARANJO Facility:[facility] Start: 06-18-2022 End: 06-18-2022 ambulatory Campbell Naranjo Other [employer] Other Start: 06-18-2022 Office outpatient vi sit 25 minutes Campbell Naranjo [facility] Start: 06-02-2022 End: 06-03-[address] CAMPBELL NARANJO Facility:[facility] Start: 04-08-2022 End: 04-08-2022 ambulatory Campbell Naranjo Other [employer] Other Start: 04-08-2022 Office outpatient vi sit 15 minutes Campbell Naranjo [facility] Start: 03-24-2022 End: 03-24-2022 ambulatory Campbell Naranjo Other [employer] Other Start: 03-24-2022 Telephone encounter Campbell Naranjo [facility] Start: 03-20-2022 Office outpatient vi sit 25 minutes Campbell Naranjo [facility] Start: 03-20-2022 End: 03-21-[address] CAMPBELL NARANJO [facility] Other Start: 01-08-2022 End: 01-08-2022 Patient encounter procedure Leonard Dugan MD Work Phone: Urology Comment on above: Chronic epididymitis (Primary Dx); Left hydrocele; Weak urinary stream; BPH without obstruction/lower urinary tract symptoms; Epididymitis Start: 01-07-2022 Refill Leonard Dugan MD Work Phone: Urology Comment on above: Refill Request Start: 12-26-2021 End: 12-26-2021 ambulatory DO Campbell Quentin Work Phone: [facility] Work Phone: Start: 12-26-2021 End: 12-26-2021 Discharged Recurring DO Campbell Naranjo Work Phone: [facility]Infusion Therapy - O/P Start: 12-25-2021 End: 12-26-[address] CAMPBELL NARANJO Facility: Start: 12-17-2021 End: 12-17-2021 Emergency department patient visit DO Campbell Naranjo Work Phone: [facility] Start: 12-16-2021 End: 12-16-2021 Patient encounter procedure Leonard Dugan MD Work Phone: Urology Comment on above: Retention of urine ( Primary Dx); Flaccid bladder Start: 12-15-2021 Telephone encounter Leticia puentes APRN.CNP Work Phone: Urology Comment on above: Patient Update Start: 12-11-2021 End: 12-11-2021 Emergency department patient visit DO Campbell Naranjo Work Phone: [facility] Start: 12-11-2021 Telephone encounter Leonard Dugan MD Work Phone: Urology Comment on above: Patient Update Start: 12-10-2021 End: 12-10-2021 Nursing evaluation of patient and report Nurse Urol [facility] Emelia Work Phone: Urology Comment on above: [...] 11-27-2021 Emergency department patient visit CAMPBELL NARANJO Facility:[facility] Start: 11-21-2021 Telephone encounter Leonard Dugan [...] Emergency department patient visit RAN HOUSTON JR Facility:[facility] Start: 10-23-2021 End: 10-24-[address] CAMPBELL NARANJO Facility:[facility] Start: 10-21-2021 End: 10-22-[address] CAMPBELL NARANJO Facility:[facility] Start: 10-20-2021 Adult health examination Campbell Naranjo Other [employer] Other Start: 07-17-2021 End: 07-18-[address] CAMPBELL NARANJO Facility:[facility] Start: 01-09-2020 End: 01-09-2020 Pre-procedure evaluation check Campbell Naranjo Other [employer] Other Procedures Date Procedure Procedure Detail Performing [...] microalbumin profile DTaP,Tdap,Td Vaccine (3 - Tdap) [facility] Start: 11-13-2022 Covid-19 Vaccine () Covid-19 Vaccine () [facility] Start: 03-15-2022 Advance Directive Discussion Advance Directive Discussion [facility] Start: 03-15-2022 Depression Assessment Depression Ass essment [facility] Start: 01-08-2022 End: 03-10-2022 Bacteria [...] 02/09/2022 Start: 11-13-2021 Influenza vaccination INFLUENZA (#1) [facility] Start: 11-12-2021 URODYNAMICS URODYNAMICS Pr ocedures Routine 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 Expected: 11/12/2021 (Approximate) [facility] Work Phone: Comment on above: Expected: 11/12/2021 (Approximate) Start: 08-11-2021 COVID-19 VACCINE (5 - Booster for Pfizer series) COVID-19 VACCINE (5 - Booster for Pfizer series) [facility] Start: 03-15-2021 ADVANCE DIRECTIVE DISCUSSION ADVANCE DIRECTIVE DISCUSSION [facility] Start: 03-15-2021 DEPRESSION ASSESSMENT DEPRESSION ASS ESSMENT [facility] Start: 05-26-2012 3 comp foot exam completed DIABETIC FOOT EXAM [facility] Start: 1998 Hepatitis B Vaccine (1 of 3 - Risk 3-dose series) Hepatitis B Vaccine (1 of 3 - Risk 3-dose series) [facility] Start: 1998 RSV Vaccine (1 - 1-d ose 60+ series) RSV Vaccine (1 - 1-dose 60+ series) [facility] Start: 1988 SHINGRIX VACCINE (1 of 2) SHINGRIX VACCINE (1 of 2) [facility] Start: 1957 Urine microalbumin profile DTAP,TDAP,TD (1 - Tdap) [facility] Start: 1956 Hepatitis B surface antibody level LDL CHOLESTEROL [facility] Start: 1948 Hepatitis B screening URINE ALBUMIN:CREATININE RATIO [facility] Start: 1948 Hepatitis C antibody , confirmatory test DILATED RETINAL EXAM [facility] Start: 1944 PNEUMOCOCCAL: 65+ (1 - PCV) PNEUMOCOCCAL: 65+ (1 - PCV) [facility] Start: 1943 Hemoglobin A1c/Hemoglobin.total in Blood HBA1C [facility] Bacteria identified in Urine by Culture [facility] End: 02-02-2024 Bacteria identified in Urine by Culture URINE CULTURE Microbiology Routine Recurrent UTI 5 Occurrences starting 02/02/2023 until 02/02/2024 [facility] Work Phone: Comment on above: 5 Occurrences starti ng 02/02/2023 until 02/02/2024 Patient Education [facility] Work Phone: Patient referral [facility] Work Phone: End: 01-14-2024 Urinalysis complete panel - Urine URINALYSIS, WITH MICROSCOPIC Lab Routine Recurrent UTI 5 Occurrences starting 02/02/2023 until 01/14/2024 [facility] Work Phone: Comment on above: 5 Occurrences starti ng 02/02/2023 until 01/14/2024 [facility] Immunizations Immunization Date Immunization Notes Care Provider Jens eid 12-01-2022 influenza virus vaccine, unspecified formulation DO Campbell Naranjo Work Phone: [facility] 12-01-2022 influenza, high dose seasonal, preservative-free Campbell Naranjo Other [facility] [employer] Other 12-19-2021 influenza virus vaccine, split virus (incl. purified surface antigen) Campbell Naranjo Other [facility] [employer] Other 12-19-2021 influenza virus vaccine, unspecified formulation DO Campbell Naranjo Work Phone: [facility] 12-10-2020 influenza virus vaccine, split virus (incl. purified surface antigen) Campbell Naranjo Other [facility] [employer] Other 12-10-2020 influenza virus vaccine, unspecified formulation DO Campbell Naranjo Work Phone: [facility] 01-09-2020 influenza virus vaccine, split virus (incl. purified surface antigen) Campbell Naranjo Other [facility] [employer] Other 01-09-2020 influenza virus vaccine, unspecified formulation DO Campbell Naranjo Work Phone: [facility] 01-14-2018 influenza virus vaccine, split virus (incl. purified surface antigen) Campbell Naranjo Other [facility] [employer] Other 01-14-2018 influenza virus vaccine, unspecified formulation DO Campbell Naranjo Work Phone: [facility] 12-30-2016 influenza virus vaccine, split virus (incl. purified surface antigen) Campbell Naranjo Other [employer] Other 12-30-2016 influenza virus vaccine, unspecified formulation DO Campbell Naranjo Work Phone: [facility] 03-16-2016 influenza virus vaccine, split virus (incl. purified surface antigen) Campbell Naranjo Other [employer] Other 03-16-2016 influenza virus vaccine, unspecified formulation DO Campbell [employer] Work Phone: [facility] 05-01-2015 pneumococcal conjuga te vaccine, 13 valent Campbell Naranjo Other [facility] 05-01-2015 pneumococcal Conjuga te, unspecified formulation; Translations: [Need for prophylactic vaccination against Streptococcus pneumoniae (pneumococcus)] Campbell Naranjo Other [facility] [employer] Other 12-28-2012 tetanus and diphther ia toxoids, adsorbed, preservative free, for adult use (5 Lf of tetanus toxoid and 2 Lf of diphtheria toxoid) Campbell Naranjo Other [facility] 01-28-2012 diphtheria, tetanus toxoids and acellular pertussis vaccine, unspecified formulation Campbell Naranjo Other [facility] 01-20-2012 pneumococcal polysaccharide vaccine, 23 valent Campbell Naranjo Other [facility] 05-18-2011 pneumococcal polysaccharide vaccine, 23 valent Campbell Naranjo Other [facility] Payers Date Payer Category Payer Self-pay 2016 Unknown KRISTIN FOSTER ME DICARE SUPPLEMENT [id number] 2016-Present [phone] [address] [place] [address] Indemnity [id number] 2003 Medicare MEDICARE MEDICAR E A AND B [id number] 2003-Present [phone] [place] [address] Medicare [id number] 1959 Medicare [id number] 1959 Medicare [id number] 1938 Unknown [id number] 3 1938 Unknown [id number] 3 1938 Unknown [id number] 3 1938 Unknown [id number] 3 1938 Unknown [id number] 3 1938 Unknown [id number] 3 1938 Unknown [id number] 3 1938 Unknown [id number] 3 Medicare Medicare Outpatient [id number] Unknown [facility] [id number] Unknown [id number] 1 Unknown [id number] 1 Unknown [id number] 1 Social History Date Type Detail Facility Start: 10-24-2009 End: 12-16-2021 Tobacco smoking status NHIS Ex-smoker [facility] End: 03-15-1971 History of tobacco use Current smoker [facility] End: 03-15-1971 History of tobacco use Cigarette Smoker [facility] Start: 10-24-2009 End: 07-28-2022 Cigarettes smoked current (pack per day) - Reported 1.5 [facility] Start: 11-07-2021 End: 12-16-2021 Alcohol intake Current drinker of alcohol (finding) [facility] Start: 1940 Sex Assigned At Not on file C [facility] Start: 10-28-2021 End: 01-08-2022 Exposure to SARS-CoV-2 (event) Not sure [facility] Start: 12-11-2021 End: 05-15-2023 Tobacco smoking status NVIS Never smoked tobacco (finding) [facility] Start: 1940 Sex Assigned At Male F [facility] Start: 12-16-2021 Tobacco use and exposure Smokeless tobacco non-user [facility] Start: 12-16-2021 End: 07-28-2022 Sex Assigned At [facility] [employer] Other National Score (1-10 0), lower number is lower risk 61 [facility] Medical Equipment Procedure Code Equipment [...] - recommend Picc line and IV antibiotics [employer] Other 01-03-2024 Evaluation note* Encounter Date Diagnosis [...] to restart Amlodipine. Continue PAUL for now. [employer] Other 12-12-2023 Evaluation note* Encounter Date Diagnosis [...] and inserts to prevent callus formation.Fall precautions. [employer] Other 12-08-2023 Evaluation note* Encounter Date Diagnosis [...] ulcers. Recommend routine foot care w/ Podiatry [employer] Other 11-21-2023 NoteHNO ID: [id number] Author: Leticia Milian APRN.HYPOID GEAR GENERATOR Service: ? Author Type: Nurse Practitioner Type: Progress Notes Filed: 02/02/2023 2:13 PM Note Text: Norberto Washington [address] [facility] [address] HISTORY OF PRESENT ILLNESS: Seen 07/28/22 for [...] see lab Duration: BPH w obs/luts, UTI [facility] SYMPTOMS SCORE. 1. INCOMPLETE EMPTYING [...] only if s (more content not included)... [facility]11-21-2023 Miscellaneous Notes* Addendum Note - Leticia Milian APRN.CNP - 02/02/2023 2:16 PM ESTAddended by: LETICIA MILIAN on: 02/02/2023 02:16 PM Modules accepted: Orders documented in this encounterRegional Medical Center11-21-2023 History of Present illness Narrative* Leticia Milian, RELAY MAN.HYPOID GEAR GENERATOR - 02/02/2023 1:40 PM EST Norberto Washington [address] [facility] [address] HISTORY OF PRESENT ILLNESS: Seen 07/28/22 for [...] see lab Duration: BPH w obs/luts, UTI [facility] SYMPTOMS SCORE. 1. INCOMPLETE EMPTYING [...] Moderate Leticia Milian APRN.ENIO documented in this encounterRegional Medical Center07-11-2023 Evaluation note* Encounter Date Diagnosis [...] w/ acute infection Requires no additional treatment [facility] Other 07-06-2023 Evaluation note* Encounter Date Diagnosis [...] exercise for 30 minutes, 3-5 times weekly. [facility] Other 05-16-2023 NoteHNO ID: [id number] Author: Leticia Milian APRN.[facility] Service: ? Author Type: Nurse Practitioner Type: Progress Notes Filed: 07/30/2022 4:34 PM Note Text: Norberto Washington [address] [facility] [address] HISTORY OF PRESENT ILLNESS: Seen 01/20/22 for [...] 07/20/22=neg UA 07/20/22=leuk esterase 250, wbc 11-25 [facility] SYMPTOMS SCORE. 1. INCOMPLETE EMPTYING [...] obs/luts, AUA, PVR Med (more content not included)...[facility]04-06-2023 Evaluation note* Encounter Date Diagnosis [...] w/ antibiotics and treatment of urinary retention [facility] Other 03-21-2023 NotePROCEDURE: XR FOOT LT MIN [...] Electronically authenticated by: SAMY TORRES Date: 2022-06-02 15:48[facility]03-21-2023 NotePROCEDURE: XR FOOT LT MIN 3 [...] Electronically authenticated by: SAMY TORRES Date: 2022-06-02 15:48[facility]01-25-2023 Evaluation note* Encounter Date Diagnosis Assessment [...] lesion was treated w/ cryotherapy w/o complications [facility] Other 01-06-2023 Evaluation note* Encounter Date Diagnosis [...] Mar, Hesitancy of micturition (ICD-10 - R39.11) [facility] Other 10-27-2022 History of Present illness Narrative* Zuleika Hackett - 01/08/2022 8:20 AM EDT Norberto [address] [address] Mr. Washington presents with chief complaints of: Enlarged L testicle. ED 11/07/21: PVR 179 cc, refused a catheter, scheduled to undergo a cystoscopy in [place] but was cancelled due to his urologist [...] epididymitis Hydroceles: None Spermatoceles: None Varicoceles: None [facility] SYMPTOMS SCORE. Date 01/08/2022 1. [...] complete. Leonard Dugan M.D. documented in this encounterRegional Medical Center10-05-2022 Hospital Discharge instructions Additional Instructions Continue taking Flomax as prescribed Avoid drinking any fluids several hours before bed Call your urologist tomorrow for a follow-up appointment Return if you are unable to urinate, develop blood in your urine, abdominal pain, [facility] Work Phone: [phone] 358-419010-04-2022 History of Present illness Narrative* Leonard Dugan MD - 12/16/2021 2:51 PM EDT Norberto Mccoy Washington [address] [place] [id number] HISTORY OF PRESENT ILLNESS: ED 11/07/21: PVR 179 cc, refused a catheter, scheduled to undergo a cystoscopy in [place] but was cancelled due to his urologist [...] Otherwise, intermittent catheterization. Agreed indwelling catheter 18 cymraes. Flomax will not work, no prostate tissue [...] well resected prostate (had 2 TURP) in [place] PLAN: (Management Options): -Start Flomax one cap [...] Moderate Leonard Dugan MD documented in this encounterRegional Medical Center10-03-2022 Miscellaneous Notes* Telephone Encounter - Valente Bell LPN - 12/15/2021 3:58 PM EDT Called and spoke to patient regarding message below. Patient states understanding to information provided. No further action required at this time. * Telephone Encounter - Leticia Milian APRN.CNP - 12/15/2021 10:13 AM EDT Please call and confirm that pt received [employer] message to start new script sent for antibiotic. Thanks Leticia MONDRAGON documented in this encounterRegional Medical Center09-29-2022 Miscellaneous Notes* Telephone Encounter - [...] be draining normally now. documented in this encounterRegional Medical Center09-28-2022 Nurse Note* Stephanie Kaur RN [...] hyperplasia with urinary retention documented in this encounterRegional Medical Center09-27-2022 History of Present illness Narrative* Leonard Dugan MD - 12/09/2021 5:05 PM EDT [facility] PHYSICIAN INTERPRETATION: Urodynamics [...] contractility Leonard Dugan MD documented in this encounterRegional Medical Center09-27-2022 Nurse Note* Stephanie Kaur RN - 12/09/2021 3:57 PM EDT [facility] URODYNAMICS LAB URODYNAMIC [...] of incomplete bladder emptying documented in this encounterRegional Medical Center09-26-2022 Miscellaneous Notes* Telephone Encounter - Stephanie Kaur RN - 12/08/2021 4:11 PM EDT LM for patient to reschedule catheter change for tomorrow. Last changed 11/26/21 in ED. Will be due for change on 12/23/21. Stephanie Kaur R.N. documented in this encounterRegional Medical Center09-12-2022 Miscellaneous Notes* Telephone Encounter - [...] has been busy with his spouse at [facility] having to care for her needs and hadn't called earlier when it first started on Wednesday. He was hoping it would clear up but it has not, urine is between [place] tint & Brown and he does see small clots. Patient does have pain at the end of his Penis slight swelling noted (he has been applying Neosporin) Denies difficulty with urine draining into [place] bag, he does not have back pain Please advise documented in this encounterRegional Medical Center08-31-2022 Nurse Note* Stephanie Kaur RN [...] Education Session: None Instruction Provided To: Patient Chairman Of The Board Present: not applicable Discipline: Nursing Learning Topic: [...] supervision. Stephanie Kaur RN documented in this encounterRegional Medical Center08-31-2022 Procedure note* Leonard Dugan MD - 11/12/2021 11:00 AM EDTProcedure(s): CYSTOSCOPY Pre-Procedure Diagnose(s): BPH with obstruction/lower urinary tract symptoms Post-Procedure Diagnose(s): BPH with obstruction/lower urinary tract symptoms PROCEDURE: CYSTOSCOPY INDICATIONS: ED 11/07/21: PVR 179 cc, refused a catheter, scheduled to undergo a cystoscopy in [place] but was cancelled due to his urologist [...] Otherwise, intermittent catheterization. Agreed indwelling catheter 18 cymraes. By signing my name below, I, Zuleika [...] complete. Leonard Dugan M.D. documented in this encounterRegional Medical Center08-29-2022 History of Present illness Narrative* Leonard Dugan MD - 11/10/2021 12:11 PM EDT Cysto with uroflow 11-12-21 ED 11/07/21: PVR 179 cc, refused a catheter, scheduled to undergo a cystoscopy in [place] but was cancelled due to his urologist [...] with urinary retention [facility] [place] Diagnosis Urinary frequency- Primary Urinary urgency Urgency of urination Urinary straining Straining on urination Feeling of incomplete bladder emptying Incomplete bladder emptying documented in this encounter [facility] [place] [facility] Diagnosis Urinary tract infection without hematuria, site unspecified- Primary Feeling of incomplete bladder emptying Incomplete bladder emptying Benign prostatic hyperplasia with urinary retention documented in this encounter [facility] [place] noteNo assessment information [facility] Work Phone: Evaluation note* Diagnosis Retention of urine- Primary Retention of urine, unspecified Flaccid bladder Neurogenic bladder, NOS documented in this encounter [facility] [place] [facility]* Diagnosis Chronic epididymitis- Primary Left hydrocele Hydrocele, unspecified Weak urinary stream Slowing of urinary stream BPH without obstruction/lower urinary tract symptoms Hypertrophy of prostate without urinary obstruction and other lower urinary tract symptoms (LUTS) Epididymitis Orchitis and epididymitis, unspecified documented in this encounter [facility] [place] [facility] [employer] Other Evaluation note* Diagnosis BPH with obstruction/lower urinary tract symptoms- Primary Hypertrophy of prostate with urinary obstruction and other lower urinary tract symptoms (LUTS) Recurrent UTI Urinary tract infection, site not specified Weak urinary stream Slowing of urinary stream documented in this encounter [facility] [place] [facility]* Diagnosis Onset Date Resolution Status Chronic venous insufficiency of lower extremity acute Type 2 diabetes mellitus with hyperglycemia acute Chronic kidney disease acute Chronic venous insufficiency of lower extremity acute Elevated cholesterol acute HTN (hypertension) acute Type 2 diabetes mellitus with hyperglycemia [facility] Work Phone: Evaluation note* Diagnosis Onset Date Resolution Status Chronic venous insufficiency of lower extremity acute Type 2 diabetes mellitus with hyperglycemia acute Chronic kidney disease acute Chronic venous insufficiency of lower extremity acute Elevated cholesterol acute HTN (hypertension) acute Overweight acute Type 2 diabetes mellitus with hyperglycemia acute [facility] Work Phone: Evaluation note* Diagnosis Onset Date [...] acute Preop exam for internal medicine noneactive [facility] Work Phone: History general Narrative - [...] cystoscopy 09.20.2019 Hospitalization History see surgical history Dialogic Other Reason for referral (narrative)* Outpatient Procedure (Routine) - Pending Review Specialty Diagnoses / Procedures Referred By Marce dillon Referred To Contact [facility] Diagnoses 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 Procedures URODYNAMICS MAGGY POST-VOIDING RESIDUAL URINE&/BLADDER CAP Leonard Dugan MD [address] [place] [address] [address] Referral ID Status Reason Start Date Expiration Date Visits Requested Visits Authorized [id number] Pending Review Auto-Generat ed Referral 11/12/2021 11/12/2022 [facility] Summary Purpose Family History No [...] toe of right foot (M20.41) Referral Organization [facility] tram Referring Provider First Name Campbell Referring Provider Last Name Quentin Referring Provider Specialty Internal Me dicine Referred Organization [facility] Referred Provider Jhon Tejada Referred Address [address], [place],[address] Referred Provider Specialty Podiatry - S urgical [...] section and content) DATE CREATED AUTHOR 11/04/2021 [facility] DATE CREATED AUTHOR AUTHOR'S ORGANIZ ATION 12/13/2021 [facility] DATE CREATED AUTHOR AUTHOR'S ORGANIZ ATION 06/25/2022 [facility] DATE CREATED AUTHOR AUTHOR'S ORGANIZ ATION 02/04/2023 [facility] DATE CREATED AUTHOR AUTHOR'S ORGANIZ ATION 07/15/2023 [facility] [employer] Source Comments (unrecognize d section and content) In the event this informatio n is protected by the Federal Confidentiality of Alcohol and Drug Abuse Patient Records regulations: The Federal rules restrict any use of the information to criminally investigate or prosecute any alcohol or drug abuse patient.[facility] the event this information is protected by the Federal Confidentiality of Alcohol and Drug Abuse Patient Records regulations: The Federal rules restrict any use of the information to criminally investigate or prosecute any alcohol or drug abuse patient.[facility] Center[facility] the event this information is protected by the Federal Confidentiality of Alcohol and Drug Abuse Patient Records regulations: The Federal rules restrict any use of the information to criminally investigate or prosecute any alcohol or drug abuse patient.[facility] Center[facility] the event this information is protected by the Federal Confidentiality of Alcohol and Drug Abuse Patient Records regulations: The Federal rules restrict any use of the information to criminally investigate or prosecute any alcohol or drug abuse patient.[facility] Center[facility] the event this information is protected by the Federal Confidentiality of Alcohol and Drug Abuse Patient Records regulations: The Federal rules restrict any use of the information to criminally investigate or prosecute any alcohol or drug abuse patient.[facility] CenterIn the event this information is protected by the Federal Confidentiality of Alcohol and Drug Abuse Patient Records regulations: The Federal rules restrict any use of the information to criminally investigate or prosecute any alcohol or drug abuse patient.[facility] Center[facility] the event this information is protected by the Federal Confidentiality of Alcohol and Drug Abuse Patient Records regulations: The Federal rules restrict any use of the information to criminally investigate or prosecute any alcohol or drug abuse patient.[facility] CenterIn the event this information is protected by the Federal Confidentiality of Alcohol and Drug Abuse Patient Records regulations: The Federal rules restrict any use of the information to criminally investigate or prosecute any alcohol or drug abuse patient.[facility] CenterIn the event this information is protected by the Federal Confidentiality of Alcohol and Drug Abuse Patient Records regulations: The Federal rules restrict any use of the information to criminally investigate or prosecute any alcohol or drug abuse patient.[facility] CenterIn the event this information is protected by the Federal Confidentiality of Alcohol and Drug Abuse Patient Records regulations: The Federal rules restrict any use of the information to criminally investigate or prosecute any alcohol or drug abuse patient.[facility] CenterIn the event this information is protected by the Federal Confidentiality of Alcohol and Drug Abuse Patient Records regulations: The Federal rules restrict any use of the information to criminally investigate or prosecute any alcohol or drug abuse patient.[facility] CenterIn the event this information is protected by the Federal Confidentiality of Alcohol and Drug Abuse Patient Records regulations: The Federal rules restrict any use of the information to criminally investigate or prosecute any alcohol or drug abuse patient.[facility] Care Teams (unrecognized sec tion [...] Low Carter , DO Emergency Provider Active Traditional Chinese Herbalist Relationship Specialty Start Date End Date Ran Houston Jr. PCP - General 10/10/09 Traditional [employer] Herbalist Relationship Specialty Start Date End Date Ran Houston Jr. PCP - General 10/10/09 Traditional Chinese Herbalist Relationship Specialty Start Date End Date Ran Houston Jr. PCP - General 10/10/09 Traditional Chinese Herbalist Relationship Specialty Start Date End Date Campbell Naranjo, DO [address] [facility] [place] [address] PCP - General Internal Medicine 11/26/21 Traditional Chinese Herbalist Relationship Specialty Start Date End Date Campbell Narnajo [place], DO [address] [place] [facility] [address] PCP - General Internal Medicine 11/26/21 Traditional Chinese Herbalist Relationship Specialty Start Date End Date Campbell Naranjo, DO [address] [facility] [place] [address] PCP - General Internal Medicine 11/26/21 Traditional Chinese Herbalist Relationship Specialty Start Date End Date QuentinCampbell, DO [address] [facility] [place] [address] PCP - General Internal Medicine 11/26/21 Team Status: Inactive Member Role Status Dates Campbell Naranjo , Primary Care Provider Active Davis Cervantes MD Emergency Provider Active Traditional Chinese Herbalist Relationship Specialty Start Date End Date Quentin Campbell Duncan, DO [address] [place] [facility] [place] [address] PCP - General Internal Medicine 11/26/21 Team Status: Inactive Member Role Status Dates Campbell Naranjo , DO Primary Care Provider Active Sam Simons , Emergency Provider Active Team Status: Inactive Member Role Status Dates Campbell Naranjo , DO Primary Care Provider Active Sam Simons , DO Attending Provider Active Traditional Chinese Herbalist Relationship Specialty Start Date End Date Campbell Naranjo, DO [address] [place] [facility] [place] [address] PCP - General Internal Medicine 11/26/21 Traditional Chinese Herbalist Relationship Specialty Start Date End Date Campbell Naranjo DO [address] [facility] [place] [address] PCP - General Internal Medicine 11/26/21 Traditional Chinese Herbalist Relationship Specialty Start Date End Date Campbell Naranjo DO [address] [facility] [place] [address] PCP - General Internal Medicine 11/26/21 Team [...] BE BASED ON THE PRIMARY CLINICAL RECORDS. [facility] [employer] [facility]. provides no warranty or guarantee of the accuracy or completeness of information in this document.
[2023-07-22 07:48] LABS: Basophils Percent Auto 0.5 % (0.2-2.0); Eosinophils Absolute Auto 0.2 10^3/uL (0.0-0.7); Eosinophils Percent Auto 2.7 % (0.9-7.0); Hematocrit 37.8 % (42.0-54.0); Hemoglobin 12.6 g/dL (14.0-18.0); Immature Granulocytes Abs Auto 0.04 10^3/uL (0.00-0.03); Immature Granulocytes Pct Auto 0.5 % (0.0-0.5); Lymphocytes Absolute Auto 2.3 10^3/uL (1.2-3.8); Lymphocytes Percent Auto 28.3 % (20.5-60.0); Mean Corpuscular HGB Conc 33.3 g/dL (29.9-35.2); Mean Corpuscular Hemoglobin 30.7 pg (25.9-34.0); Mean Platelet Volume 8.2 fL (9.5-13.5); Monocytes Absolute Auto 1.1 10^3/uL (0.3-0.8); Monocytes Percent Auto 13.7 % (1.7-12.0); Neutrophils Absolute Auto 4.4 10^3/uL (1.4-6.5); Neutrophils Percent Auto 54.3 % (43.0-75.0); Platelet Count 268 10^3/uL (150-450); Red Blood Count 4.11 10^6/uL (4.70-6.10); Red Cell Distribution Width 12.2 % (11.0-15.0); White Blood Count 8.1 10^3/uL (4.0-11.0)
[2023-07-22 08:01] LABS: Anion Gap 14.9; BUN Creatinine Ratio 16.5; Chloride 98 mmol/L (98-107); Estimated GFR (African America 59 (>=60); Estimated GFR (Non-African Ame 49 (>=60); Glucose 120 mg/dL (74-106); Potassium 4.9 mmol/L (3.5-5.1); Sodium 135 mmol/L (136-145)
[2023-07-22] MEDS: LACTATED RINGER'S SOLUTION 1,000 ML 50 ML IV (08:13)
[2023-07-22 08:16] LABS: Glucometer 125 mg/dL (74-106)
[2023-07-22] MEDS: CEFAZOLIN SODIUM/DEXTROSE,ISO 2 GM/50 ML PIGGYBACK IV (08:42)
[2023-07-22] MEDS: LIDOCAINE HCL 1% 100 MG/10 ML MDV INJ (09:14)
--- NOTE | 2023-07-22 09:16 | SUR.OPER ---
TOURNIQUET CUFF APPLIED BUT NOT USED
[2023-07-22] MEDS: BUPIVACAINE HCL 0.5% PF 50 MG/10 ML VIAL INJ (09:25)
[2023-07-22] MEDS: VANCOMYCIN HCL 500 MG VIAL 1000 MG TOPICAL (09:30)
--- NOTE | 2023-07-22 10:47 | XR_ITS ---
[address] [address] Patient Name: EMILY WASHINGTON MRN: [id number] date: 1940 Sex: M Assigned Patient Location: SURGOUT Current Patient Location: Accession/Order Number: [id number] Exam Date: 07/22/2023 11:05 Report Date: 07/22/2023 12:07 At the request of: SABINE MUNSON Procedure: XR foot RT min 3V EXAM: XR foot RT min 3V HISTORY: POST SURGRY COMPARISON: 04/12/2023 FINDINGS/IMPRESSION: 1. Mild degeneration of the interphalangeal joints. Amputation of the distal aspect of the fourth toe and the distal aspect of the fifth proximal phalanx. 2. Mild degeneration of the mid foot. 3. Small calcaneal plantar enthesophyte. 4. Soft tissue swelling about the forefoot. 5. No acute fractures. Electronically authenticated by: YAMINI CLAYTON Date: 07/22/2023 12:07
[2023-07-22 11:01] LABS: Glucometer 137 mg/dL (74-106)
--- NOTE | 2023-07-22 12:25 | PM.ORONB ---
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 On 07/12/23 he underwent partial right 4th toe amputation and 5th toe arthroplasty. He presented to the office yesterday relating to worsening drainage and that the incision has broken open. It was evident on examination that there was exposed middle phalanx of the 4th toe in the wound edges did not bleed appropriately. We recommended returning to the OR to revise his amputation. He was educated and potential risks and benefits and agreed to proceed with the above procedures INTRAOPERATIVE FINDINGS: exposed middle phalanx of the 4th toe and wound with dusky skin edges which measured 1.2 x 0.6 cm. No purulence but superficial necrosis of the exposed middle phalanx is noted. Skin edges did bleed appropriately once all nonviable tissue was excised PROCEDURE IN DETAIL: Patient was identified in pre op and consent was reviewed. Correct side and site were identified and marked. Pre-op antibiotics were started. Patient was brought to OR suite and place on table in a supine position. General anesthesia was administered. Tourniquet applied but was not inflated. Operative extremity was prepped and draped in usual sterile fashion. Formal time-out was performed. A a racquet incision was placed on the 4th toe which allowed for excision of the dehisced wound on the distal aspect of the toe. Full-thickness incision was taken down to bone to the level of the proximal phalanx and all soft tissue attachments were released allowing disarticulation of the digit at the PIPJ. The amputated digit was passed back table and sent for specimen. Tendinous structures were cut proximally. Surgical site was irrigated with normal saline and inspected for any nonviable tissue which was removed. a rongeur was used to remove the proximal phalanx head to allow skin to be closed without tension. surgical site was irrigated with copious saline.Skin edges did bleed appropriately and the incision was closed in one layer after placing vancomycin powder in the surgical site. Incision was then closed in one layer with nonabsorbable suture. Bulky dry sterile dressing was applied. POSTOPERATIVE PLAN: Discharge home under family's care Post op instructions provided verbally and written prescription(s) were placed in chart weightbearing as tolerated in surgical shoe but I emphasized the importance of rest and elevation Follow-up in 1 week Anesthesia: MAC Surgeon: Jhon Tejada Estimated blood loss (mL): 20 Tourniquet time (min): 0 Pathology: other (4th toe bone) Condition: stable Disposition: PACU
== END 2023-07-22 11:43 | disposition home or self-care (01) ==
PROVIDERS: PCP Internal Medicine; Visit Provider Podiatrist Foot & Ankle Surgery
PROC: (CPT 28825; principal; 2023-07-22 08:45)
DX: E11.69 Type 2 diabetes mellitus with other specified complication (principal); M86.171 Other acute osteomyelitis, right ankle and foot; T81.31XA Disruption of external operation (surgical) wound, not elsewhere classified, initial encounter; Z79.84 Long term (current) use of oral hypoglycemic drugs; Z79.899 Other long term (current) drug therapy; E11.40 Type 2 diabetes mellitus with diabetic neuropathy, unspecified; E78.00 Pure hypercholesterolemia, unspecified; I10 Essential (primary) hypertension; E11.42 Type 2 diabetes mellitus with diabetic polyneuropathy
CPT/HCPCS: 28825; 36415; 73630; 80048; 82948; 85025; 88307; J2704; J3370

== ENCOUNTER 2023-07-22 15:26 | Outpatient (OUT) | payer MEDICARE, SELFPAY | END 2023-07-22 15:27 | disposition home or self-care (01) | LOC: PST 15:26 | PROVIDERS: PCP Internal Medicine; Visit Provider Podiatrist Foot & Ankle Surgery | DX: Z01.818 Encounter for other preprocedural examination (principal); T81.31XA Disruption of external operation (surgical) wound, not elsewhere classified, initial encounter ==

== ENCOUNTER 2023-07-26 15:06 | Outpatient (OUT) | payer MEDICARE, SELFPAY | END 2023-07-26 15:07 | disposition home or self-care (01) | LOC: WC 15:06 | PROVIDERS: PCP Internal Medicine; Visit Provider Physician Assistant | DX: T87.89 Other complications of amputation stump (principal) | CPT/HCPCS: G0463 ==

== ENCOUNTER 2023-08-02 11:19 | Outpatient (OUT) | payer MEDICARE, SELFPAY | END 2023-08-02 11:20 | disposition home or self-care (01) | LOC: WC 11:19 | PROVIDERS: PCP Internal Medicine; Visit Provider Physician Assistant | DX: T87.89 Other complications of amputation stump (principal) | CPT/HCPCS: G0463 ==

== ENCOUNTER 2023-08-13 11:06 | Outpatient (OUT) | payer MEDICARE, SELFPAY | END 2023-08-13 11:07 | disposition home or self-care (01) | LOC: WC 11:06 | PROVIDERS: PCP Internal Medicine; Visit Provider Podiatrist Foot & Ankle Surgery | DX: T87.89 Other complications of amputation stump (principal) | CPT/HCPCS: G0463 ==

== ENCOUNTER 2023-08-31 13:27 | Outpatient (OUT) | payer MEDICARE, SELFPAY ==
--- OUTSIDE RECORDS SUMMARY | 2023-08-31 13:51 | XMS_ITS | CCD ---
Author Organization 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 [employer] Name Role Phone Rosemarie Connolly, Ran Latham [...] CAMPBELL NARANJO Primary Care Unavailable QUENTIN, DR HIGHTOWER Consulting Unavailable BALL, DR HIGHTOWER Admitting Unavailable BALL, DR HIGHTOWER Attending Unavailable BALL, DR HIGHTOWER Primary Care Unavailable MELISSA, DR SAMY Nieves Consulting Unavailable LAKESHIA, CATRACHITA Admitting Unavailable LAKESHIA, CATRACHITA Attending Unavailable LAKESHIA, CATRACHITA Consulting Unavailable BALL, DR HIGHTOWER Admitting Unavailable BALL, DR HIGHTOWER Attending Unavailable BALL, DR HIGHTOWER Consulting Unavailable QUENTIN, DR HIGHTOWER Primary Care Unavailable QUENTIN, DR HIGHTOWER Admitting Unavailable BALL, DR HIGHTOWER Attending Unavailable BALL, DR HIGHTOWER Consulting Unavailable BALL, DR HIGHTOWER Primary Care Unavailable RANDALLLEIDY Unavailable BAPTISTE, DR ROBIN Duncan Admitting Unavailable BAPTISTE, DR ROBIN Duncan Attending Unavailable BAPTISTE, DR ROBIN Duncan Consulting Unavailable QUENTIN, DR HIGHTOWER Primary Care Unavailable QUENTIN, DR HIGHTOWER Admitting Unavailable BALL, DR HIGHTOWER Attending Unavailable BALL, DR HIGHTOWER Consulting Unavailable BALL, DR HIGHTOWER Primary Care Unavailable MELISSA, DR SAMY Nieves Consulting Unavailable QUENTIN, DR HIGHTOWER Admitting Unavailable BALL, DR HIGHTOWER Attending Unavailable BALL, DR HIGHTOWER Consulting Unavailable BALL, DR HIGHTOWER Primary Care Unavailable QUENTIN, DR HIGHTOWER Admitting Unavailable BALL, DR HIGHTOWER Attending Unavailable BALL, DR HIGHTOWER Consulting Unavailable BALL, DR HIGHTOWER Primary Care Unavailable Cornell Baptiste Unavailable DO Campbell Naranjo Primary Care Provider Tupa, DO [place] [facility] Provider Campbell Naranjo DO Primary Care Provider Quentin, DO Hightower Primary Care Provider Tupa, DO [place] [facility] Provider [phone] CHRISTIAN Tejada Attending Provider Jhon Tejada Attending Unavailable Jhon Tejada Admitting Unavailable Campbell Naranjo Primary Care Unavailable Jhon Tejada Attending Unavailable Jhon Tejada Admitting Unavailable Campbell Naranjo Primary Care Unavailable TupaLow Admitting Unavailable Campbell Naranjo Primary Care Unavailable Low Carter Attending Unavailable [facility] dixon Attending Unavailable [facility] dixon Admitting Unavailable Campbell Naranjo Primary Care Unavailable Campbell Naranjo DO Primary Care Provider CAMPBELL NARANJO Primary Care Unavailable LETICIA MILIAN Referring Unavailable JENNIFER MILIANI D Attending Unavailable CAMPBELL NARANJO Primary Care Unavailable CAMPBELL NARANJO Referring Unavailable CAMPBELL NARANJO Primary Care Unavailable CAMPBELL NARANJO Primary Care Unavailable RUKHSANA, LETICIA D Referring Unavailable CAMPBELL NARANJO Primary Care Unavailable RUKHSANA, LETICIA D Attending Unavailable Allergies Allergy Classification Reported Allergen(s) Allergy Type Date of Onset Reaction(s) Facility (20 sources) Ciprofloxacin; Translations: [CIPROFLOXACIN] Drug Allergy 08-01-19 10 GI Upset, [facility] (20 sources) Sulfonamides (Antibiotic); Translations: [SULFA (SULFONAMIDE ANTIBIOTICS)] Propensity to adverse reactions 08-01-19 10 Rash, [facility] (1 source) Ciprofloxacin Drug Allergy [facility] Repository (1 source) Sulfonamides (Antibiotic) Drug allergy (disorder) [facility] Repository (1 source) Allergies Reconciled Propensity to adverse reactions Unknown [employer] Other (1 source) patient allergy list reviewed by nurse or physicia Propensity to adverse reactions 05-20-19 Comment:Done [employer] Other (1 source) Ciprofloxacin Drug Allergy 07-09-19 [facility] Repository (1 source) Sulfonamides (Antibiotic) Drug allergy (disorder) 07-09-19 [facility] Repository Medications Current Medications Medication [...] 2021 12:00am cephalexin 500 mg oral capsule (20 sources) Cephalosporin Antibacterial Start: take 1 capsule by mouth every twelve hours cephALEXin (KEFLEX) 500 mg capsule Take 1 capsule by mouth every 12 hours. 0 07/23/2023 Active Start: 01-23-2022 End: 01-23-2022 cephALEXin 500 mg cap(s) (KE FLEX) Start: 12-11-2021 End: 12-17-2021 take 500 mg [...] 1 capsule by mouth three times daily doxycycline hyclate 100 mg oral capsule (3 sources) Tetracycline-class Drug Start: doxycycline hyclate (VIBRAMYCIN) 100 mg capsule econazole nitrate 10 mg/ml topical cream (19 sources) Azole Antifungal gabapentin 300 mg oral capsule (20 sources) Anti-epileptic Agent Start: 07-31-2009 gabapenti n(NEURONTIN 300 MG CAP) Take one(1) tablet two(2) [...] once daily. glucosamine 500 mg oral tablet (17 sources) Start: 05-21-2023 take 500 mg by [...] Reductase Inhibitor Start : 05-24 End: 06-16 lovastatin 40 mg tablet Lovastatin Active 40 MG PO Daily December 11, 2021 12:00am 0 05/25/2019 Active Comment on above: Lovastatin Active 40 MG PO Daily December 11, 2021 12:00am methylsulfonylmethane 1000 mg oral tablet (4 sources) Start : 05-20 take 1 capsule by mouth twice daily Methylsulfonylmethane (Msm) 1,000 mg capsule Active 1000 MG PO Twice daily May 21, 2023 1:00am MSM 1500 MG (19 sources) MSM 1500 MG as d irected Orally Active Multi For Him - (4 sources) Multi For Him - as directed Orally Active Multivitamin (Daily Multi-Vitamin) tablet (4 sources) Start: 05-21-19 take 1 tablet by [...] capsule (20 sources) alpha-Adrenergic Radha Start: 12-18-19 End: 06-23-19 take 0.4 mg by mouth twice daily Tamsulosin Discontinued 0.4 MG PO Twice daily 180 90 June 17, 2023 12:04pm June 23, 2023 9:54am Start: 12-16-2021 End: 01-28-2024 take 1 capsule by mouth once daily, then take 1 capsule by mouth once daily tamsulosin (FLOMAX) 0.4 mg Take 1 capsule by mouth once daily. Take one cap. daily 90 capsule 3 02/02/2023 01/28/2024 Active Comment on above: Take 1 capsule by mo [facility] once daily. Take one cap. daily Turmeric Root-Yulisa Root Ext (4 sources) Start: 05-21-2023 Turmeric Root-Yulisa Root Ext Active TAB PO [...] mg / clavulanate 125 mg oral tablet (10 sources) Penicillin-class Antibacterial Start: 05-15-2023 End: 05-21-2023 [...] application Externally three times a day Not-Taking/PRN ammonium lactate 120 mg/ml topical cream (11 [...] Take one(1) tablet d aily at bedtime. trimethoprim 100 mg oral tablet (9 sources) Dihydrofolate Reductase Inhibitor Antibacterial Start: 12-15-2021 End: 05-21-2023 take 100 mg by mouth twice daily Trimethoprim Discontinued 100 MG PO Twice daily December 17, 2021 12:00am May 21, 2023 12:03pm Comment on above: Take 1 tablet by marisela th twice daily for 5 days. Problems Active [...] depolarization] Onset: 06-23-2016 Chronic Chronic kidney disease (12 sources) Chronic kidney disease stage 3; Translations: [Chronic kidney disease, stage 3 unspecified] Onset: 08-23-2014 06-20-2023 Chronic Chronic ulcer of skin (15 sources) Ulcer of foot; Translations: [Non-pressure chronic ulcer of other part of unspecified foot with unspecified severity] Onset: 10-02-2009 10-02-2009 Chronic Complication of device; implant or graft (8 sources) Disorder of urethral catheter; Translations: [Breakdown [...] caused by tuberculosis or sexually transmitted disease) (5 sources) Osteomyelitis of right foot; Translations: [Osteomyelitis, [...] sources) H/O: high risk medication; Translations: [Other manager long term care (current) drug therapy] Episodic Other aftercare (1 source) Long-term current use of drug therapy; Translations: [Other manager long term care (current) drug therapy] Episodic Other circulatory disease [...] veins and lymphatics (4 sources) Venous insufficiency of leg; Translations: [Venous insufficiency (chronic) (peripheral)] 05-20-2023 Episodic Other diseases of veins and lymphatics (4 sources) Stasis dermatitis; Translations: [Venous insufficiency (chronic) (peripheral)] 05-21-2023 Episodic Other diseases of veins and lymphatics (10 sources) Venous insufficiency (chronic) (peripheral); Translations: [Venous [...] Chronic Other nutritional; endocrine; and metabolic disorders (4 sources) Overweight; Translations: [Overweight] Episodic Other nutritional; endocrine; and metabolic disorders (4 sources) Overweight; Translations: [Overweight] Onset: 10-20-2021 06-23-2023 Episodic Other skin disorders (5 sources) Actinic keratosis; Translations: [Actinic keratosis] Episodic Other skin disorders (1 source) Callosity; Translations: [Corns and callosities] Episodic Other skin disorders (2 sources) Corns and callosities Episodic Retinal detachments; defects; vascular occlusion; and retinopathy (1 source) Serous retinal detachment; Translations: [Serous retinal detachment, unspecified eye] Episodic Skin and subcutaneous tissue infections (10 sources) Cellulitis of toe of left foot; [...] other medications] Onset: 03-23-2016 Urinary tract infections (4 sources) Acute cystitis with hematuria; Translations: [Urinary [...] 08-28-2019 Episodic Other aftercare (1 source) Other fci (current) drug therapy; Translations: [OTH LONGTERM CURRENT DRUG THERAPY] Onset: 10-22-2021 Episodic Other [...] organisms] Onset: 10-29-2017 Episodic Residual codes; unclassified (13 sources) Postoperative state; Translations: [Other specified postprocedural [...] Test Name Value Interpretation Reference Range Facility CNOVon 08-04-2023 CNOV Office Visit (UROLLN ) NORBERTO WASHINGTON ([id number]) 1940 M Date Time Provider Department 08/04/23 9:00 AM LETICIA MILIAN During your visit today, we recorded the following information about you: Pulse Blood pressure Weight 65/minute 130/56 99.8 kg Leticia Milian, ASSET ANALYST.REROLLING MACHINE OPERATOR 08/04/2023 9:23 AM Signed Norberto Washington [address] [id number] HISTORY OF PRESENT ILLNESS: Seen 02/02/23 for BPH w obs/luts, UTI Denies gross hematuria Denies any wt lost or pelvic pain Pt stated that notice occassionally sensation daily Pt wear a padding underwear and change daily rto Drink about 3 glasses of water ROSAMARIA 11/10/21 - 10 gm, rubbery, no nodules AUA=12 QOL 2 PVR=83 ML cysto 11-12-21 = 2.5 cm NON [...] BPH w obs/luts, UTI (new finding today 08/04/23) Pt is presently on manager long term care antibiotic due to infection in toes that went to bone Stated that urinary symptoms have resolved with treatment. PVR=36 ML UA 07/26/23=trace leuk esterase Culture 07/26/23=<10,000 CFU/ml Lactose positive gram negative bacilli Abnormal A1C 07/26/23=6.4 Location: BPH w obs/luts, UTI Pain Character: none Severity Scale: see AUA score, see lab Duration: BPH w obs/luts, UTI [facility] SYMPTOMS SCORE. 1. INCOMPLETE EMPTYING 1 2. FREQUENCY 0 3. INTERMITTENCY 3 4. URGENCY 0 5. WEAK STREAM 1 6. STRAINING 3 7. NOCTURIA 2 TOTAL SCORE 10 QOL 2 No past medical history on file. No past surgical history on file. No family history on file. Social History Tobacco Use Smoking status: Former Packs/day: 1.50 Years: 14.00 Additional pack years: 0.00 Total pack years: 21.00 Types: Cigarettes Quit date: 03/15/1971 Years since quittin.4 Smokeless tobacco: Never Substance Use Topics Alcohol use: Yes Comment: social MEDICATIONS: Current Outpatient Medications Medication Sig cephALEXin (KEFLEX) 500 mg capsule Take 1 capsule by mouth every 12 hours. tamsulosin (FLOMAX) 0.4 mg Take 1 capsule [...] from the gums. PHYSICAL EXAM: VITALS: BP 130/56 Pulse 65 Wt 99.8 kg (220 lb) BMI 27.50 kg/m? GENERAL: Alert, oriented and in no distress. HEAD: Conjuctiva: no palor Sclera: no jaundice NECK: No enlarged thyroid, no palpable lymph nodes, and no engorged neck veins. CHEST: Bilateral symetrical, resp easy non labored ABDOMEN: Soft, non tender with no masses or organomegaly. No CVA tenderness. EXTREMITIES: No leg edema, No joint swelling GENITALIA: Deferred IMPRESSION: (Diagnostic Possibilitie (more content not included)... Normal [facility] Bacteria Ur Culton 4 Bacteria identified Cx Nom (U) ORGANISM ID: 1 <10,000 CFU/ml Lactose positive gram negative bacilli Insignificant colony count. No further workup. Normal [facility] Comment on above: Performed By: #### 6 30-4 #### [facility] CLIA [id number] [address] [place] [address] [place] HbA1c (Bld)on 07-26-2023 Average glucose Estimated from glycated hemoglobin (Bld) [Mass/Vol] 137 mg/dL Normal [facility] Comment on above: Order Comment: Domonique men Type: BLOOD SPECIMEN Ordering Facility: Dr Naranjo and Dr Baptiste Office Address: [address] [place] [address] Result Comment: eAG: (Estimated average glucose) is a calculated value from HgbA1c and is rental sales representative of the average blood glucose level in the last 2-3 month period. Performed By: #### 5 5454-3 #### [facility] CLIA [id number] [address] [place] [address] [place] HbA1c (Bld) [Mass fraction] 6.4 % High 4.3-5.6 [facility] Comment on above: Order Comment: Domonique garcia Type: BLOOD SPECIMEN Ordering Facility: Dr Naranjo and Dr Baptiste Office Address: [address] [place] [address] Result Comment: Amer [place] Diabetes Association guidelines indicate that patients with HgbA1c in the range 5.7-6.4% are at increased risk for development of diabetes, and intervention by lifestyle modification may be beneficial. HgbA1c greater or equal to 6.5% is considered diagnostic of diabetes. Performed By: #### 5 5454-3 #### [facility] CLIA [id number] [address] [place] [address] [place] Urinalysis complete panel (U )on 07-26-2023 Bacteria LM.HPF (Urine sed) [#/Area] Negative Normal Negative [facility] Comment on above: Order Comment: Speci men Type: URINE SPECIMEN Ordering Facility: [facility] Address: [address] [place] [address] Performed By: #### 2 4356-8 #### [facility] CLIA [id number] [address] [place] [address] [place] Bilirubin Ql (U) Negative Normal Negative [facility] Comment on above: Order Comment: Speci men Type: URINE SPECIMEN Ordering Facility: [facility] Address: [address] [place] [address] Performed By: #### 2 4356-8 #### [facility] CLIA [id number] [address] [place] [address] [place] Clarity (Unsp spec) Clear Normal [facility] Comment on above: Order Comment: Speci men Type: URINE SPECIMEN Ordering Facility: [facility] Address: [address] [place] [address] Performed By: #### 2 4356-8 #### [facility] CLIA [id number] [address] [place] [address] [place] Color (U) Yellow Normal Yellow [facility] Comment on above: Order Comment: Speci men Type: URINE SPECIMEN Ordering Facility: [facility] Address: [address] [place] [address] Performed By: #### 2 4356-8 #### [facility] CLIA [id number] [address] [place] [address] [place] Epithelial cells LM.HPF (Urine sed) [#/Area] None Seen Normal [facility] Comment on above: Order Comment: Speci men Type: URINE SPECIMEN Ordering Facility: [facility] Address: [address] [place] [address] Performed By: #### 2 4356-8 #### [facility] CLIA [id number] [address] [place] [address] [place] Glucose Test strip (U) [Mass/Vol] Negative Normal Negative [facility] Comment on above: Order Comment: Speci men Type: URINE SPECIMEN Ordering Facility: [facility] Address: [address] [place] [address] Performed By: #### 2 4356-8 #### [facility] CLIA [id number] [address] [place] [address] [place] Hemoglobin Ql (U) Negative Normal Negative [facility] Comment on above: Order Comment: Speci men Type: URINE SPECIMEN Ordering Facility: [facility] Address: [address] [place] [address] Performed By: #### 2 4356-8 #### [facility] CLIA [id number] [address] [place] [address] [place] Hyaline casts (Urine sed) [#/Area] 1-3 /LPF Abnormal 0 /LPF [facility] Comment on above: Order Comment: Speci men Type: URINE SPECIMEN Ordering Facility: [facility] Address: [address] [place] [address] Performed By: #### 2 4356-8 #### [facility] CLIA [id number] [address] [place] [address] [place] Ketones Ql (U) Negative Normal Negative [facility] Comment on above: Order Comment: Speci men Type: URINE SPECIMEN Ordering Facility: [facility] Address: [address] [place] [address] Performed By: #### 2 4356-8 #### [facility] CLIA [id number] [address] [place] [address] [place] Leukocyte esterase Test strip Ql (U) Trace Abnormal Negative [facility] Comment on above: Order Comment: Speci men Type: URINE SPECIMEN Ordering Facility: [facility] Address: [address] [place] [address] Performed By: #### 2 4356-8 #### [facility] CLIA [id number] [address] [place] [address] [place] Nitrite Ql (U) Negative Normal Negative [facility] Comment on above: Order Comment: Speci men Type: URINE SPECIMEN Ordering Facility: [facility] Address: [address] [place] [address] Performed By: #### 2 4356-8 #### [facility] CLIA [id number] [address] [place] [address] [place] pH (U) 6.0 [pH] Normal <8.5 [facility] Comment on above: Order Comment: Speci men Type: URINE SPECIMEN Ordering Facility: [facility] Address: [address] [place] [address] Performed By: #### 2 4356-8 #### [facility] CLIA [id number] [address] [place] [address] [place] Protein (U) [Mass/Vol] Negative Normal Negative [facility] Comment on above: Order Comment: Speci men Type: URINE SPECIMEN Ordering Facility: [facility] Address: [address] [place] [address] Performed By: #### 2 4356-8 #### [facility] CLIA [id number] [address] [place] [address] [place] RBC LM.HPF (Urine sed) [#/Area] 0-2 /HPF Normal 0-2 /HPF [facility] Comment on above: Order Comment: Speci men Type: URINE SPECIMEN Ordering Facility: [facility] Address: [address] [place] [address] Performed By: #### 2 4356-8 #### [facility] CLIA [id number] [address] [place] [address] [place] Specific gravity (U) [Rel density] 1.016 Normal 1.005-1.030 [facility] Comment on above: Order Comment: Speci men Type: URINE SPECIMEN Ordering Facility: [facility] Address: [address] [place] [address] Performed By: #### 2 4356-8 #### [facility] CLIA [id number] [address] [place] [address] [place] Urobilinogen Ql (U) 0.2 EU/dL Normal 0.2-1.0 EU/dL [facility] Comment on above: Order Comment: Speci men Type: URINE SPECIMEN Ordering Facility: [facility] Address: [address] [place] [address] Performed By: #### 2 4356-8 #### [facility] CLIA [id number] [address] [place] [address] [place] WBC LM.HPF (Urine sed) [#/Area] 0-5 /HPF Normal 0-5 /HPF [facility] Comment on above: Order Comment: Speci men Type: URINE SPECIMEN Ordering Facility: [facility] Address: [address] [place] [address] Performed By: #### 2 4356-8 #### [facility] CLIA [id number] [address] [place] [address] [place] Basophils Auto (Bld) [#/Vol] on 07-22-2023 Basophils (Bld) [#/Vol] 0.0 10 3/uL 0.0-0.1 [facility] Basophils/100 WBC Auto (Bld) on 07-22-2023 Basophils/100 WBC (Bld) 0.5 % 0.2-2.0 [facility] Eosinophils/100 WBC Auto (Bl d)on 07-22-2023 Eosinophils/100 WBC (Bld) 2.7 % 0.9-7.0 [facility] Erythrocyte distribution wid th Auto (RBC) [Ratio]on 07-22-2023 Erythrocyte distribution width (RBC) [Ratio] 12.2 % 11.0-15.0 [facility] Estimated glomerular filtrat ion rate (GFR) non- Americanon 07-22-2023 GFR/1.73 sq M.predicted among non-blacks MDRD (S/P/Bld) [Vol rate/Area] 49 mL/min/{1.73_m2} >=60 [facility] Hematocrit Auto (Bld) [Volum e fraction]on 07-22-2023 Hematocrit (Bld) [Volume fraction] 37.8 % 42.0-54.0 [facility] Hemoglobin [Mass/volume] in Bloodon 07-22-2023 Hemoglobin (Bld) [Mass/Vol] 12.6 g/dL 14.0-18.0 [facility] Yuri 07-22-2023 L Specimen: [id number] Received: 07/22/23 Status: MARY Najera Num: [id number] Spec Type: Surgical Subm Dr: Jhon Tejada DPM, MS Tissues: A DIGIT AMPUTATION (DISTAL RT FOURTH TOE) Procedures: HE/2, Gross/Micro L4, Decalcification Age/ Patient Sex Location Account Attending Physician Norberto Washington 83/M LABELL [id number] Jhon Tejada DPM, MS SPEC NUM: [id number] RECD: 07/22/23 STATUS: MARY NAJERA NUM: [id number] CAITY: 07/22/[address]: Jhon Tejada DPM, MS ENTERED: 07/22/23 [facility] DR: Anderson,Chaim SPEC TYPE: Surgical DEPT: GILBERTO ABEBE ORDERED: HE/2, Gross/Micro L4, Decalcification ORDERED: HE/2, Gross/Micro L4, Decalcification Pathological Diagnosis Right fourth toe, biopsy: Acute osteomyelitis. Gross Description Received in formalin labeled with the patient's name, date of and right fourth toe is a 1.2 x 0.8 x 0.6 cm fragment of bone with adherent soft tissue. The fragment is bisected revealing a firm, slightly hemorrhagic spongy bone matrix. The specimen is entirely submitted following decalcification in A1. Clinical history: Disruption of surgical wound CPT Codes 46481 -------- -------- Specimen: [id number] Received: 07/22/23 Status: MARY Najera Num: [id number] Spec Type: Surgical Subm Dr: Jhon Tejada,CHRISTIAN, MS Tissues: A DIGIT AMPUTATION (DISTAL RT FOURTH TOE) Procedures: HE/2, Gross/Micro L4, Decalcification -------- Patient: Norberto Washington [id number] (Continued) -------- Signed (signature on file) Gin Talley MD 07/26/23 1525 Normal [facility] Laboratory - Chemistry and C hemistry - challengeon 07-22-2023 Calcium [Mass/Vol] 9.0 mg/dL 8.5-10.1 [facility] Chloride [Moles/Vol] 98 mmol/L 98-107 [facility] CO2 [Moles/Vol] 27.0 mmol/L 21.0-32.0 [facility] Creatinine [Mass/Vol] 1.39 mg/dL 0.70-1.30 [facility] GFR/1.73 sq M.predicted MDRD (S/P/Bld) [Vol rate/Area] 59 mL/min/{1.73_m2} >=60 [facility] Glucose [Mass/Vol] 120 mg/dL 74-106 [facility] Potassium [Moles/Vol] 4.9 mmol/L 3.5-5.1 [facility] Sodium [Moles/Vol] 135 mmol/L 136-145 [facility] Urea nitrogen [Mass/Vol] 23.0 mg/dL 7.0-18.0 [facility] Urea nitrogen/Creatinine [Mass ratio] 16.5 mg/mg [facility] Laboratory - Hematology and Cell countson 07-22-2023 Immature granulocytes/100 WBC (Bld) 0.5 % 0.0-0.5 [facility] Leukocytes [#/volume] correc marshal for nucleated erythrocytes in Blood by Automated counon 07-22-2023 WBC corrected for nucl RBC Auto (Bld) [#/Vol] 8.1 10 3/uL 4.0-11.0 [facility] Lymphocytes Auto (Bld) [#/Vo l]on 07-22-2023 Lymphocytes (Bld) [#/Vol] 2.3 10 3/uL 1.2-3.8 [facility] Lymphocytes/100 WBC Auto (Bl d)on 07-22-2023 Lymphocytes/100 WBC (Bld) 28.3 % 20.5-60.0 [facility] MCH Auto (RBC) [Entitic mass ]on 07-22-2023 MCH (RBC) [Entitic mass] 30.7 pg 25.9-34.0 [facility] MCHC Auto (RBC) [Mass/Vol]on 07-22-2023 MCHC (RBC) [Mass/Vol] 33.3 g/dL 29.9-35.2 [facility] MCV Auto (RBC) [Entitic vol] on 07-22-2023 MCV (RBC) [Entitic vol] 92.0 fL 80.0-94.0 [facility] Monocytes Auto (Bld) [#/Vol] on 07-22-2023 Monocytes (Bld) [#/Vol] 1.1 10 3/uL 0.3-0.8 [facility] Monocytes/100 WBC Auto (Bld) on 07-22-2023 Monocytes/100 WBC (Bld) 13.7 % 1.7-12.0 [facility] Neutrophils Auto (Bld) [#/Vo l]on 07-22-2023 Neutrophils (Bld) [#/Vol] 4.4 10 3/uL 1.4-6.5 [facility] Neutrophils/100 WBC Auto (Bl d)on 07-22-2023 Neutrophils/100 WBC (Bld) 54.3 % 43.0-75.0 [facility] No Panel Informationon 07-21 Eosinophils # (Auto) 0.2 10 3/uL 0.0-0.7 [facility] Immature Granulocyte # (Auto) 0.04 10 3/uL 0.00-0.03 [facility] Platelet mean volume Auto (B ld) [Entitic vol]on 07-22-2023 Platelet mean volume (Bld) [Entitic vol] 8.2 fL 9.5-13.5 [facility] Platelets Auto (Bld) [#/Vol] on 07-22-2023 Platelets (Bld) [#/Vol] 268 10 3/uL 150-450 [facility] RBC Auto (Bld) [#/Vol]on RBC (Bld) [#/Vol] 4.11 10 6/uL 4.70-6.10 [facility] Serum or plasma anion gap de terminationon 07-22-2023 Anion gap [Moles/Vol] 14.9 mmol/L [facility] Yuri 07-12-2023 L Specimen: [id number] Received: 07/12/23 Status: MARY Najera Num: [id number] Spec Type: Surgical Subm Dr: Jhon Tejada DPM, MS Tissues: A DIGIT AMPUTATION (LT FOURTH TOE) B DIGIT AMPUTATION (RT FOURTH TOE) Procedures: HE/4, Gross/Micro L4/2, Decalcification/2 Age/ Patient Sex Location Account Attending Physician Norberto Washington 83/M LABELL [id number] Jhon Tejada DPM, MS SPEC NUM: [id number] RECD: 07/12/23 STATUS: MARY REQ NUM: [id number] CAITY: 07/12/[address]: Jhon Tejada DPM, MS ENTERED: 07/12/23 [facility] DR: Anderson,Chaim SPEC TYPE: Surgical DEPT: GILBERTO ABEBE ORDERED: [...] digit. The skin surface is -------- Specimen: [id number] Received: 07/12/23 Status: MARY Najera Num: [id number] Spec Type: Surgical Subm Dr: Jhon Tejada,DPM, MS Tissues: A DIGIT AMPUTATION (LT FOURTH TOE) B DIGIT AMPUTATION (RT FOURTH TOE) Procedures: HE/4, Gross/Micro L4/2, Decalcification/2 -------- Patient: Norberto Washington [id number] (Continued) -------- Specimen: [id number] Received: 07/12/23 (Continued) Gross Description (Continued) Signed (signature on file) Yisel Kaminski MD 07/13/23 192 -------- Specimen: [id number] Received: 07/12/23 Status: MARY Najera Num: [id number] Spec Type: Surgical Subm Dr: Jhon Tejada,CHRISTIAN, MS Tissues: A DIGIT AMPUTATION (LT FOURTH TOE) B DIGIT AMPUTATION (RT FOURTH TOE) Procedures: HE/4, Gross/Micro L4/2, Decalcification/2 -------- Patient: Norberto Washington [id number] (Continued) -------- Specimen: [id number] Received: 07/12/23 (Continued) Gross Description (Continued) 90% [...] foot, osteomyelitis right foot TW CPT Codes 41497 X2 37779 X2 -------- -------- Specimen: [id number] Received: 07/12/23 Status: MARY Dania Num: [id number] Spec Type: Surgical Subm Dr: Jhon Tejada,DPKaylin, MS Tissues: A DIGIT AMPUTATION (LT FOURTH TOE) B DIGIT AMPUTATION (RT FOURTH TOE) Procedures: HE/4, Gross/Micro L4/2, Decalcification/2 -------- Patient: Norberto Washington [id number] (Continued) -------- Signed (signature on f (more content not included)... Normal [facility] Basophils Auto (Bld) [#/Vol] on 07-06-2023 Basophils (Bld) [#/Vol] 0.0 10 3/uL 0.0-0.1 [facility] Basophils/100 WBC Auto (Bld) on 07-06-2023 Basophils/100 WBC (Bld) 0.4 % 0.2-2.0 [facility] Eosinophils/100 WBC Auto (Bl d)on 07-06-2023 Eosinophils/100 WBC (Bld) 2.3 % 0.9-7.0 [facility] Erythrocyte distribution wid th Auto (RBC) [Ratio]on 07-06-2023 Erythrocyte distribution width (RBC) [Ratio] 12.4 % 11.0-15.0 [facility] Estimated glomerular filtrat ion rate (GFR) non- Americanon 07-06-2023 GFR/1.73 sq M.predicted among non-blacks MDRD (S/P/Bld) [Vol rate/Area] 59 mL/min/{1.73_m2} >=60 [facility] Hematocrit Auto (Bld) [Volum e fraction]on 07-06-2023 Hematocrit (Bld) [Volume fraction] 37.5 % 42.0-54.0 [facility] Hemoglobin [Mass/volume] in Bloodon 07-06-2023 Hemoglobin (Bld) [Mass/Vol] 12.5 g/dL 14.0-18.0 [facility] Laboratory - Chemistry and C hemistry - challengeon 07-06-2023 Calcium [Mass/Vol] 9.0 mg/dL 8.5-10.1 [facility] Chloride [Moles/Vol] 98 mmol/L 98-107 [facility] CO2 [Moles/Vol] 27.6 mmol/L 21.0-32.0 [facility] Creatinine [Mass/Vol] 1.17 mg/dL 0.70-1.30 [facility] GFR/1.73 sq M.predicted MDRD (S/P/Bld) [Vol rate/Area] mL/min/{1.73_m2} >=60 [facility] Glucose [Mass/Vol] 109 mg/dL 74-106 [facility] Potassium [Moles/Vol] 5.1 mmol/L 3.5-5.1 [facility] Sodium [Moles/Vol] 134 mmol/L 136-145 [facility] Urea nitrogen [Mass/Vol] 23.0 mg/dL 7.0-18.0 [facility] Urea nitrogen/Creatinine [Mass ratio] 19.7 mg/mg [facility] Laboratory - Hematology and Cell countson 07-06-2023 Immature granulocytes/100 WBC (Bld) 0.4 % 0.0-0.5 [facility] Leukocytes [#/volume] correc marshal for nucleated erythrocytes in Blood by Automated counon 07-06-2023 WBC corrected for nucl RBC Auto (Bld) [#/Vol] 8.0 10 3/uL 4.0-11.0 [facility] Lymphocytes Auto (Bld) [#/Vo l]on 07-06-2023 Lymphocytes (Bld) [#/Vol] 1.8 10 3/uL 1.2-3.8 [facility] Lymphocytes/100 WBC Auto (Bl d)on 07-06-2023 Lymphocytes/100 WBC (Bld) 22.3 % 20.5-60.0 [facility] MCH Auto (RBC) [Entitic mass ]on 07-06-2023 MCH (RBC) [Entitic mass] 30.7 pg 25.9-34.0 [facility] MCHC Auto (RBC) [Mass/Vol]on 07-06-2023 MCHC (RBC) [Mass/Vol] 33.3 g/dL 29.9-35.2 [facility] MCV Auto (RBC) [Entitic vol] on 07-06-2023 MCV (RBC) [Entitic vol] 92.1 fL 80.0-94.0 [facility] Monocytes Auto (Bld) [#/Vol] on 07-06-2023 Monocytes (Bld) [#/Vol] 1.2 10 3/uL 0.3-0.8 [facility] Monocytes/100 WBC Auto (Bld) on 07-06-2023 Monocytes/100 WBC (Bld) 15.0 % 1.7-12.0 [facility] Neutrophils Auto (Bld) [#/Vo l]on 07-06-2023 Neutrophils (Bld) [#/Vol] 4.8 10 3/uL 1.4-6.5 [facility] Neutrophils/100 WBC Auto (Bl d)on 07-06-2023 Neutrophils/100 WBC (Bld) 59.6 % 43.0-75.0 [facility] No Panel Informationon 07-05 Eosinophils # (Auto) 0.2 10 3/uL 0.0-0.7 [facility] Immature Granulocyte # (Auto) 0.03 10 3/uL 0.00-0.03 [facility] Platelet mean volume Auto (B ld) [Entitic vol]on 07-06-2023 Platelet mean volume (Bld) [Entitic vol] 8.9 fL 9.5-13.5 [facility] Platelets Auto (Bld) [#/Vol] on 07-06-2023 Platelets (Bld) [#/Vol] 242 10 3/uL 150-450 [facility] RBC Auto (Bld) [#/Vol]on RBC (Bld) [#/Vol] 4.07 10 6/uL 4.70-6.10 [facility] Serum or plasma anion gap de terminationon 07-06-2023 Anion gap [Moles/Vol] 13.5 mmol/L [facility] US venous duplex LE RTon US venous duplex LE RT [facility] [place] [address] Ultrasound Report Signed Patient: Norberto Washington MR#: [id number] [birth year] : 1940 Acct:[id number] Age/Sex: 83 / M ADM Date: 05/15/23 Loc: ER Room: Type: [facility] ER Attending Dr: Ordering Provider: [...] Gus Wren MD05/16/2023 11:15 AM Dictation Location: [place] [address] Tech: Helen Gama Transcribed By: PAUL 05/16/23 1115 Dictated By: Gus Wren MD 05/16/23 111 Signed By: 05/16/23 1115 Normal [facility] Estimated glomerular filtrat ion rate (GFR) non- Americanon 05-03-2023 GFR/1.73 sq M.predicted among non-blacks MDRD (S/P/Bld) [Vol rate/Area] mL/min/{1.73_m2} >=60 [facility] Laboratory - Chemistry and C hemistry - challengeon 05-03-2023 Calcium [Mass/Vol] 8.5 mg/dL 8.5-10.1 [facility] Chloride [Moles/Vol] 100 mmol/L 98-107 [facility] CO2 [Moles/Vol] 27.6 mmol/L 21.0-32.0 [facility] Creatinine [Mass/Vol] 1.06 mg/dL 0.70-1.30 [facility] GFR/1.73 sq M.predicted MDRD (S/P/Bld) [Vol rate/Area] mL/min/{1.73_m2} >=60 [facility] Glucose [Mass/Vol] 135 mg/dL 74-106 [facility] Potassium [Moles/Vol] 4.1 mmol/L 3.5-5.1 [facility] Sodium [Moles/Vol] 136 mmol/L 136-145 [facility] Urea nitrogen [Mass/Vol] 19.0 mg/dL 7.0-18.0 [facility] Urea nitrogen/Creatinine [Mass ratio] 17.9 mg/mg [facility] No Panel Informationon 05-03 C-Reactive Protein, Quantitative <0.50 mg/dL <=0.50 [facility] Serum or plasma anion gap de terminationon 05-03-2023 Anion gap [Moles/Vol] 12.5 mmol/L [facility] Estimated glomerular filtrat ion rate (GFR) non- Americanon 04-30-2023 GFR/1.73 sq M.predicted among non-blacks MDRD (S/P/Bld) [Vol rate/Area] mL/min/{1.73_m2} >=60 [facility] Laboratory - Chemistry and C hemistry - challengeon 04-30-2023 Calcium [Mass/Vol] 8.7 mg/dL 8.5-10.1 [facility] Chloride [Moles/Vol] 101 mmol/L 98-107 [facility] CO2 [Moles/Vol] 29.2 mmol/L 21.0-32.0 [facility] Creatinine [Mass/Vol] 1.06 mg/dL 0.70-1.30 [facility] GFR/1.73 sq M.predicted MDRD (S/P/Bld) [Vol rate/Area] mL/min/{1.73_m2} >=60 [facility] Glucose [Mass/Vol] 93 mg/dL 74-106 [facility] Potassium [Moles/Vol] 4.6 mmol/L 3.5-5.1 [facility] Sodium [Moles/Vol] 136 mmol/L 136-145 [facility] Urea nitrogen [Mass/Vol] 20.0 mg/dL 7.0-18.0 [facility] Urea nitrogen/Creatinine [Mass ratio] 18.9 mg/mg [facility] No Panel Informationon 04-30 C-Reactive Protein, Quantitative 0.50 mg/dL <=0.50 [facility] Vancomycin Level Trough 11.0 ug/mL 5.0-20.0 [facility] Serum or plasma anion gap de terminationon 04-30-2023 Anion gap [Moles/Vol] 10.4 mmol/L Fi [facility] CNOVon 02-02-2023 CNOV Office Visit (UROLLN ) NORBERTO WASHINGTON ([id number]) 1940 M Date Time Provider Department 02/02/23 1:30 PM LETICIA MILIANLLJatinder During your visit today, we recorded the following information about you: Pulse Blood pressure Weight 65/minute 146/70 102.1 kg Leticia Milian, ASSET ANALYST.REROLLING MACHINE OPERATOR 02/02/2023 2:13 PM Signed Norberto Nadine Washington [address] [facility] [address] HISTORY OF PRESENT ILLNESS: Seen 07/28/22 for [...] see lab Duration: BPH w obs/luts, UTI [facility] SYMPTOMS SCORE. 1. INCOMPLETE EMPTYING [...] Stream (imp (more content not included)... Normal [facility] Bacteria Ur Culton 3 Bacteria identified Cx Nom (U) CULTURE, URINE: No growth (<1,000 CFU/ml) Normal [facility] Comment on above: Performed By: #### 6 30-4 #### [facility] CLIA [id number] [address] [place] [address] [place] GLYCOHEMOGLOBIN A1Con 2022 ADA RECOMMENDATION SEE BELOW Normal [facility] Comment on above: Result Comment: ADA RECOMMENDED LIMIT 4.0 - 6.0 ADA THERAPEUTIC TARGET < 7.0 ACTION SUGGESTED > 7.0 Performed By: #### A 1C #### [facility] [address] [place] [address] Dr. Juan Pablo Kaminski Glucose [Mass/Vol] 128 mg/dL Normal [facility] Comment on above: Performed By: #### A 1C #### [facility] [address] [place] [address] Dr. Juan Pablo Kaminski HbA1c (Bld) [Mass fraction] 6.1 % Normal 4.5-6.2 [facility] Comment on above: Performed By: #### A 1C #### [facility] [address] [place] [address] Dr. Juan Pablo Kaminski A1C with Estimated Average G luon 03-20-2022 A1C with Estimated Average Glu [address] [facility] [employer] Other A1C with Estimated Average Glu [employer] Other HbA1c (Bld) [Mass fraction] 6.1 % Normal 4.5-6.2 [employer] Other Comment on above: Performed By: #### A 1C #### [facility] [address] [place] [address] Dr. Juan Pablo Kaminski GLYCOHEMOGLOBIN A1Con 2022 ADA RECOMMENDATION SEE BELOW Normal [facility] Comment on above: Result Comment: ADA RECOMMENDED LIMIT 4.0 - 6.0 ADA THERAPEUTIC TARGET < 7.0 ACTION SUGGESTED > 7.0 Performed By: #### A 1C #### [facility] [address] [place] [address] Dr. Juan Pablo Kaminski Glucose [Mass/Vol] 128 mg/dL Normal [facility] Comment on above: Performed By: #### A 1C #### [facility] [address] [place] [address] Dr. Juan Pablo Kaminski US SCROTUM W [...] by: LEIDY PEREIRA Date: 2021-12-25 18:32 Normal [facility] Urine culture routineOrdered By: Sam Simons on 12-19-2021 Bacteria identified Cx Nom (U) Pseudomonas aeruginosa [facility] Automated erythrocytes count in urine sediment (number/area)Ordered By: Sam Simons on 12-17-2021 RBC Auto (Urine sed) [#/Area] 1-2 [HPF] 0-4 [facility] Automated leukocytes count i n urine sediment (number/area)Ordered By: Sam Simons on 12-17-2021 WBC Auto (Urine sed) [#/Area] 20-49 [HPF] 0-4 [facility] Bilirubin Test strip Ql (U)O rdered By: Sam Simons on 12-17-2021 Bilirubin Ql (U) Negative Negative [facility] Color Auto (U)Ordered By: Micheal Simons on 12-17-2021 Color (U) Yellow Yellow [facility] Ketones Auto test strip (U) [Mass/Vol]Ordered By: Sam Simons on 12-17-2021 Ketones (U) [Mass/Vol] Negative Negative [facility] - UrinalysisOrder ed By: Sam Simons on 12-17-2021 Hyaline casts LM Ql (Urine sed) 0-8 [LPF] 0-8 [facility] Nitrite Test strip Ql (U)Ord ered By: Sam Simons on 12-17-2021 Nitrite Ql (U) Negative Negative [facility] Protein Auto test strip (U) [Mass/Vol]Ordered By: Sam Simons on 12-17-2021 Protein (U) [Mass/Vol] Negative Negative [facility] Specific gravity Auto test s trip (U) [Rel density]Ordered By: Sam Simons on 12-17-2021 Specific gravity (U) [Rel density] 1.016 1.001-1.030 [facility] Squamous epithelial cells de tection in urine sediment by light microscopyOrdered By: Sam Simons on 12-17-2021 Epithelial cells.squamous LM Ql (Urine sed) 0-1 [HPF] 0-2 [facility] Urine bacteria detection by automated methodOrdered By: Sam Simons on 12-17-2021 Bacteria Auto Ql (U) None seen None Seen [facility] Urine clarity by refractomet ry automatedOrdered By: Sam Simons on 12-17-2021 Clarity Refractometry automated (U) Clear Clear [facility] Urine glucose measurement by automated test strip (mass/volume)Ordered By: Sam Simons on 12-17-2021 Glucose Auto test strip (U) [Mass/Vol] Normal mg/dL Normal [facility] Urine hemoglobin detection b y automated test stripOrdered By: Sam Simons on 12-17-2021 Hemoglobin Auto test strip Ql (U) Negative Negative [facility] Urine leukocyte esterase det ection by automated test stripOrdered By: Sam Simons on 12-17-2021 Leukocyte esterase Auto test strip Ql (U) 4+ Negative [facility] Urobilinogen Auto test strip (U) [Mass/Vol]Ordered By: Sam Simons on 12-17-2021 Urobilinogen (U) [Mass/Vol] Normal mg/dL Normal [facility] pH Auto test strip (U)Ordere d By: Sam Simons on 12-17-2021 pH (U) 6.0 [pH] 5.0-9.0 [facility] Urine culture routineOrdered By: Davis Cervantes on 12-13-2021 Bacteria identified Cx Nom (U) No Growth 2 Days [facility] Automated erythrocytes count in urine sediment (number/area)Ordered By: Davis Cervantes on 12-11-2021 RBC Auto (Urine sed) [#/Area] 20-49 [HPF] 0-4 [facility] Automated leukocytes count i n urine sediment (number/area)Ordered By: Davis Cervantes on 12-11-2021 WBC Auto (Urine sed) [#/Area] 10-19 [HPF] 0-4 [facility] Basophils Auto (Bld) [#/Vol] Ordered By: Davis Cervantes on 12-11-2021 Basophils (Bld) [#/Vol] 0.1 10*3/uL 0.0-0.2 [facility] Basophils/100 WBC Auto (Bld) Ordered By: Davis Cervantes on 12-11-2021 Basophils/100 WBC (Bld) 1.2 % . [facility] Bilirubin Test strip Ql (U)O rdered By: Davis Cervantes on 12-11-2021 Bilirubin Ql (U) Negative Negative [facility] Blood hemoglobin measurement (mass/volume)Ordered By: Davis Cervantes on 12-11-2021 Hemoglobin (Bld) [Mass/Vol] 13.3 g/dL 13.0-17.0 [facility] Blood leukocytes automated c ount (number/volume)Ordered By: Davis Cervantes on 12-11-2021 WBC (Bld) [#/Vol] 8.2 10*3/uL 4.5-11.0 [facility] Color Auto (U)Ordered By: Mary Cervantes on 12-11-2021 Color (U) Yellow Yellow [facility] Creatinine and Glomerular fi ltration rate.predicted panel (S/P/Bld)Ordered By: Davis Cervantes on 12-11-2021 Creatinine [Mass/Vol] 1.16 mg/dL 0.64-1.27 [facility] Eosinophils Auto (Bld) [#/Vo l]Ordered By: Davis Cervantes on 12-11-2021 Eosinophils (Bld) [#/Vol] 0.2 10*3/uL 0.0-0.45 [facility] Eosinophils/100 WBC Auto (Bl d)Ordered By: Davis Cervantes on 12-11-2021 Eosinophils/100 WBC (Bld) 2.9 % . [facility] Erythrocyte distribution wid th Auto (RBC) [Ratio]Ordered By: Davis Cervantes on 12-11-2021 Erythrocyte distribution width (RBC) [Ratio] 11.8 % 12.0-14.8 [facility] Estimated glomerular filtrat ion rate (GFR) non- AmericanOrdered By: Davis Cervantes on 12-11-2021 GFR/1.73 sq M.predicted among non-blacks MDRD (S/P/Bld) [Vol rate/Area] 60 mL/Min [facility] Hematocrit Auto (Bld) [Volum e fraction]Ordered By: Davis Cervantes on 12-11-2021 Hematocrit (Bld) [Volume fraction] 39.6 % 38.8-50.0 [facility] Ketones Auto test strip (U) [Mass/Vol]Ordered By: Davis Cervantes on 12-11-2021 Ketones (U) [Mass/Vol] Negative Negative [facility] - Hematology and Cell countsOrdered By: Davis Cervantes on 12-11-2021 Nucleated RBC/100 WBC (Bld) [Ratio] 0.0 % 0-0.5 [facility] - UrinalysisOrder ed By: Davis Cervantes on 12-11-2021 Hyaline casts LM Ql (Urine sed) 0-8 [LPF] 0-8 [facility] Lymphocytes Auto (Bld) [#/Vo l]Ordered By: Davis Cervantes on 12-11-2021 Lymphocytes (Bld) [#/Vol] 1.9 10*3/uL 1.00-4.8 [facility] Lymphocytes/100 WBC Auto (Bl d)Ordered By: Davis Cervantes on 12-11-2021 Lymphocytes/100 WBC (Bld) 23.3 % . [facility] MCH Auto (RBC) [Entitic mass ]Ordered By: Davis Cervantes on 12-11-2021 MCH (RBC) [Entitic mass] 32.0 pg 27.5-35.2 [facility] MCHC Auto (RBC) [Mass/Vol]Or dered By: Davis Cervantes on 12-11-2021 MCHC (RBC) [Mass/Vol] 33.6 g/dL 32.5-35.6 [facility] MCV Auto (RBC) [Entitic vol] Ordered By: Davis Cervantes on 12-11-2021 MCV (RBC) [Entitic vol] 95.1 fL 83.5-101 [facility] Monocytes Auto (Bld) [#/Vol] Ordered By: Davis Cervantes on 12-11-2021 Monocytes (Bld) [#/Vol] 1.1 10*3/uL 0.0-0.8 [facility] Monocytes/100 WBC Auto (Bld) Ordered By: Davis Cervantes on 12-11-2021 Monocytes/100 WBC (Bld) 13.6 % . [facility] Neutrophils Auto (Bld) [#/Vo l]Ordered By: Davis Cervantes on 12-11-2021 Neutrophils (Bld) [#/Vol] 4.8 10*3/uL 1.8-7.7 [facility] Neutrophils/100 WBC Auto (Bl d)Ordered By: Davis Cervantes on 12-11-2021 Neutrophils/100 WBC (Bld) 59.0 % . [facility] Nitrite Test strip Ql (U)Ord ered By: Davis Cervantes on 12-11-2021 Nitrite Ql (U) Negative Negative [facility] No Panel InformationOrdered By: Davis Cervantes on 12-11-2021 Estimated GFR () > 60 mL/Min [facility] Comment on above: GFR estimated refere nce range: According to KDOQI guidelines, <60 ml/min/1.73m2 is sufficient to diagnose a patient with chronic kidney disease. Pharmacy Creatinine Clearance (Chem 57.67 [facility] Platelet mean volume Auto (B ld) [Entitic vol]Ordered By: Davis Cervantes on 12-11-2021 Platelet mean volume (Bld) [Entitic vol] 7.0 fL 6.6-10.1 [facility] Platelets Auto (Bld) [#/Vol] Ordered By: Davis Cervantes on 12-11-2021 Platelets (Bld) [#/Vol] 266 10*3/uL 150-450 [facility] Protein Auto test strip (U) [Mass/Vol]Ordered By: Davis Cervantes on 12-11-2021 Protein (U) [Mass/Vol] Negative Negative Fi [facility] RBC Auto (Bld) [#/Vol]Ordere d By: Davis Cervantes on 12-11-2021 RBC (Bld) [#/Vol] 4.17 10*6/uL 3.90-5.60 [facility] Serum or plasma anion gap de terminationOrdered By: Davis Cervantes on 12-11-2021 Anion gap [Moles/Vol] 12.2 mmol/L 6.0-15.[address] [facility] Serum or plasma calcium maggy urement (mass/volume)Ordered By: Davis Cervantes on 12-11-2021 Calcium [Mass/Vol] 9.0 mg/dL 8.2-10.2 [facility] Serum or plasma chloride duran surement (moles/volume)Ordered By: Davis Cervantes on 12-11-2021 Chloride [Moles/Vol] 96 mmol/L 95-114 [facility] Serum or plasma glucose maggy urement (mass/volume)Ordered By: Davis Cervantes on 12-11-2021 Glucose [Mass/Vol] 131 mg/dL 70-100 [facility] Comment on above: ADA recommended refe rence rangeRandom Glucose Reference Range is dependent on time and content of last meal. Glucose of more than 200 mg/dL in a nonstressed, ambulatory subject supports the diagnosis of Diabetes Mellitus. Serum or plasma potassium me asurement (moles/volume)Ordered By: Davis Cervantes on 12-11-2021 Potassium [Moles/Vol] 4.5 mmol/L 3.5-5.1 [facility] Serum or plasma sodium measu rement (moles/volume)Ordered By: Davis Cervantes on 12-11-2021 Sodium [Moles/Vol] 131 mmol/L 136-146 [facility] Serum or plasma total carbon dioxide measurement (moles/volume)Ordered By: Davis Cervantes on 12-11-2021 CO2 [Moles/Vol] 27.3 mmol/L 22.0-30.0 [facility] Serum or plasma urea nitroge n measurement (mass/volume)Ordered By: Davis Cervantes on 12-11-2021 Urea nitrogen [Mass/Vol] 20 mg/dL 9-23 [facility] Specific gravity Auto test s trip (U) [Rel density]Ordered By: Davis Cervantes on 12-11-2021 Specific gravity (U) [Rel density] 1.014 1.001-1.030 [facility] Squamous epithelial cells de tection in urine sediment by light microscopyOrdered By: Davis Cervantes on 12-11-2021 Epithelial cells.squamous LM Ql (Urine sed) 0-1 [HPF] 0-2 [facility] Urine bacteria detection by automated methodOrdered By: Davis Cervantes on 12-11-2021 Bacteria Auto Ql (U) None seen None Seen [facility] Urine clarity by refractomet ry automatedOrdered By: Davis Cervantes on 12-11-2021 Clarity Refractometry automated (U) Clear Clear [facility] Urine glucose measurement by automated test strip (mass/volume)Ordered By: Davis Cervantes on 12-11-2021 Glucose Auto test strip (U) [Mass/Vol] Normal mg/dL Normal [facility] Urine hemoglobin detection b y automated test stripOrdered By: Davis Cervantes on 12-11-2021 Hemoglobin Auto test strip Ql (U) 2+ Negative [facility] Urine leukocyte esterase det ection by automated test stripOrdered By: Davis Cervantes on 12-11-2021 Leukocyte esterase Auto test strip Ql (U) 2+ Negative [facility] Urobilinogen Auto test strip (U) [Mass/Vol]Ordered By: Davis Cervantes on 12-11-2021 Urobilinogen (U) [Mass/Vol] Normal mg/dL Normal [facility] pH Auto test strip (U)Ordere d By: Davis Cervantes on 12-11-2021 pH (U) 5.5 [pH] 5.0-9.0 [facility] ED NOTEon 11-27-2021 ED NOTE HNO ID: [id number] Author: Alyx Vergara RN Service: Nursing [facility] HNO ID: [id number] Author: Alyx Vergara RN Service: Nursing Author Type: Registered Nurse Type: ED Notes Filed: 11/26/2021 10:10 PM Note Text: Replaced hamilton bag with leg bag. Normal [facility] Bacteria Ur Culton 2 Bacteria identified Cx Nom (U) [id number] Abnormal [facility] Comment on above: Order Comment: Speci men Type: URINE SPECIMEN Ordering Facility: [facility] Address: [address] [place] [address] Result Comment: >=10 0,000 CFU/ml Klebsiella oxytoca Performed By: #### 6 30-4, 11705-7 #### [facility] CLIA [id number] [address] [place] [address] [place] Bacterial susceptibility maldonaod el (Isol)on 11-26-2021 Ampicillin [Susc] Resistant [facility] linda Comment on above: Order Comment: Order ing Facility: [facility] Address: [address] [place], [place] [phone] Performed By: #### 6 30-4, 12630-3 #### [facility] CLIA [id number] [address] [place] [address] [place] Ampicillin+Sulbactam [Susc] 4 Susceptible Susceptible <=8 , Intermediate >8 , Resistant >16 [facility] Comment on above: Order Comment: Order ing Facility: [facility] Address: [address] [place] [address] Performed By: #### 6 30-4, 95767-8 #### [facility] CLIA [id number] [address] [place] [address] ceFAZolin [Susc] <=4 Susceptible Susceptible 0-16 , Intermediate <0 or >16 , Resistant >16 [facility] Comment on above: Order Comment: Order ing Facility: [facility] Address: [address] [place], [place] [address] Performed By: #### 6 30-4, 57552-5 #### [facility] CLIA [id number] [address] [place] [address] [place] Cefepime [Susc] <=1 Susceptible Susceptible <=2 , Intermediate >2 , Resistant >=16 [facility] Comment on above: Order Comment: Order ing Facility: [facility] Address: [address] [place] [address] Performed By: #### 6 30-4, 10757-2 #### [facility] CLIA [id number] [address] [place] [address] [place] cefTRIAXone [Susc] <=1 Susceptible Susceptib le <=1 , Intermediate >1 , Resistant >=4 [facility] Comment on above: Order Comment: Order ing Facility: [facility] Address: [address] [place], [place] [address] Performed By: #### 6 30-4, 42470-0 #### [facility] CLIA [id number] [address] [place] [address] [place] Ciprofloxacin [Susc] <=0.25 Susceptible Suscept ible <0.5 , Intermediate >=.5 , Resistant >=1 [facility] Comment on above: Order Comment: Order ing Facility: [facility] Address: [address] [place] [address] Performed By: #### 6 30-4, 43567-7 #### [facility] CLIA [id number] [address] [place] [address] [place] Ertapenem ROCIO [Susc] <=0.5 Susceptible Suscept ible <=0.5 , Intermediate >.5 , Resistant >1 [facility] Comment on above: Order Comment: Order ing Facility: [facility] Address: [address] [place] [address] Performed By: #### 6 30-4, 75086-0 #### [facility] CLIA [id number] [address] [place] [address] [place] Gentamicin [Susc] <=1 Susceptible Susceptibl e <=4 , Intermediate >4 , Resistant >8 [facility] Comment on above: Order Comment: Order ing Facility: [facility] Address: [address] [place] [address] Performed By: #### 6 30-4, 70052-8 #### [facility] CLIA [id number] [address] [place] [address] [place] Meropenem [Susc] <=0.25 Susceptible Susceptible <=1 , Intermediate >1 , Resistant >2 [facility] Comment on above: Order Comment: Order ing Facility: [facility] Address: [address] [place] [address] Performed By: #### 6 30-4, 76272-2 #### [facility] CLIA [id number] [address] [place] [address] [place] Nitrofurantoin [Susc] 32 Susceptible Suscep tible <=32 , Intermediate >32 , Resistant >64 [facility] Comment on above: Order Comment: Order ing Facility: [facility] Address: [address] [place] [address] Performed By: #### 6 30-4, 31419-7 #### [facility] CLIA [id number] [address] [place] [address] [place] Piperacillin+Sulbactam ROCIO [Susc] <=4 Susceptible Susceptible <=16 , Intermediate >16 , Resistant >64 [facility] Comment on above: Order Comment: Order ing Facility: [facility] Address: [address] [place] [address] Performed By: #### 6 30-4, 84058-2 #### [facility] CLIA [id number] [address] [place] [address] Tobramycin [Susc] <=1 Susceptible Susceptibl e <=4 , Intermediate >4 , Resistant >8 [facility] Comment on above: Order Comment: Order ing Facility: [facility] Address: [address] [place] [address] Performed By: #### 6 30-4, 07448-5 #### [facility] CLIA [id number] [address] [place] [address] Trimethoprim+Sulfameth oxazole [Susc] <=20 Susceptible Susceptible <=40 , Resistant >40 [facility] Comment on above: Order Comment: Order ing Facility: [facility] Address: [address] [place] [address] Performed By: #### 6 30-4, 51381-5 #### [facility] CLIA [id number] [address] [place] [address] ED NOTEon 11-26-2021 ED NOTE HNO ID: [id number] Author: Alyx Vergara RN Service: Nursing Author Type: Registered Nurse Type: ED Notes Filed: 11/26/2021 9:20 PM Note Text: Replaced hamilton per Asha DIXON. [facility] ED NOTE HNO ID: [id number] Author: Alyx Vergara RN Service: Nursing Author Type: Registered Nurse Type: ED Notes Filed: 11/26/2021 9:01 PM Note Text: Was instructed to bladder scan pt due to pt having no urine in replaced bag. Bladder scanned 261 mL's the first time. Then 214 mL's the second time. Made Asha ESQUIVEL) aware. [facility] ED NOTE HNO ID: [id number] Author: Alyx Vergara, RN Service: Nursing Author Type: Registered Nurse Type: ED Notes Filed: 11/26/2021 9:49 PM Note Text: Flushed 20 mL Hamilton. No leaking noted around tube. [facility] ED PROV NOTEon 11-26-2021 ED PROV NOTE HNO ID: [id number] Author: sAha Clinton PA-C Service: ? Author Type: Physician Resizer Operator Type: ED Provider Notes Filed: 11/26/2021 10:26 [...] Speci men Type: URINE SPECIMEN Ordering Facility: [facility] Address: [address] [place] [address] Performed By: #### 6 30-4, 71320-3 #### [facility] CLIA [id number] [address] [place] [address] [place] Bilirubin Ql (U) Negative Normal Negative [facility]ital Comment on above: Order Comment: Speci men Type: URINE SPECIMEN Ordering Facility: [facility] Address: [address] [place] [address] Performed By: #### 6 30-4, 38766-8 #### [facility] CLIA [id number] [address] [place] [address] [place] Clarity (Unsp spec) Cloudy Abnormal Clear [facility] Comment on above: Order Comment: Speci men Type: URINE SPECIMEN Ordering Facility: [facility] Address: [address] [place] [address] Performed By: #### 6 30-4, 93981-6 #### [facility] CLIA [id number] [address] [place] [address] [place] Color (U) Yellow Normal Yellow [facility] Comment on above: Order Comment: Speci men Type: URINE SPECIMEN Ordering Facility: [facility] Address: [address] [place] [address] Performed By: #### 6 30-4, 09653-0 #### [facility] CLIA [id number] [address] [place] [address] [place] Epithelial cells LM.HPF (Urine sed) [#/Area] Few Normal [facility] Comment on above: Order Comment: Speci men Type: URINE SPECIMEN Ordering Facility: [facility] Address: [address] [place] [address] Performed By: #### 6 30-4, 73455-0 #### [facility] CLIA [id number] [address] [place] [address] [place] Glucose Test strip (U) [Mass/Vol] Negative Normal Negative [facility] Comment on above: Order Comment: Speci men Type: URINE SPECIMEN Ordering Facility: [facility] Address: [address] [place] [address] Performed By: #### 6 30-4, 21882-4 #### [facility] CLIA [id number] [address] [place] [address] [place] Hemoglobin Ql (U) 2+ Abnormal Negative [facility] Comment on above: Order Comment: Speci men Type: URINE SPECIMEN Ordering Facility: [facility] Address: [address] [place], [place] [address] Performed By: #### 6 30-4, 73973-1 #### [facility] CLIA [id number] [address] [place] [address] [place] Ketones Ql (U) Negative Normal Negative [facility] Comment on above: Order Comment: Speci men Type: URINE SPECIMEN Ordering Facility: [facility] Address: [address] [place] [address] Performed By: #### 6 30-4, 64463-2 #### [facility] CLIA [id number] [address] [place] [address] [place] Leukocyte esterase Test strip Ql (U) 3+ Abnormal Negative [facility] Comment on above: Order Comment: Speci men Type: URINE SPECIMEN Ordering Facility: [facility] Address: [address] [place] [address] Performed By: #### 6 30-4, 14605-3 #### [facility] CLIA [id number] [address] [place] [address] [place] Nitrite Ql (U) Positive Abnormal Negative [facility] Comment on above: Order Comment: Speci men Type: URINE SPECIMEN Ordering Facility: [facility] Address: [address] [place] [address] Performed By: #### 6 30-4, 82571-5 #### [facility] CLIA [id number] [address] [place] [address] [place] pH (U) 5.5 [pH] Normal 5.0-8.0 [facility] Comment on above: Order Comment: Speci men Type: URINE SPECIMEN Ordering Facility: [facility] Address: [address] [place] [address] Performed By: #### 6 30-4, 12331-6 #### [facility] CLIA [id number] [address] [place] [address] [place] Protein (U) [Mass/Vol] Normal [facility] Comment on above: Order Comment: Speci men Type: URINE SPECIMEN Ordering Facility: [facility] Address: [address] [place] [address] Result Comment: Visi ble blood causes falsely elevated results for analyte Protein. Due to this limitation, Protein will not be reported for patients whose urine contains visible blood. Performed By: #### 6 30-4, 09355-0 #### [facility] CLIA [id number] [address] [place] [address] [place] RBC LM.HPF (Urine sed) [#/Area] 6-10 /HPF Abnormal 0-3 /HPF [facility] Comment on above: Order Comment: Speci men Type: URINE SPECIMEN Ordering Facility: [facility] Address: [address] [place] [address] Performed By: #### 6 30-4, 93807-8 #### [facility] CLIA [id number] [address] [place] [address] [place] Specific gravity (U) [Rel density] 1.009 Normal 1.005-1.030 [facility] Comment on above: Order Comment: Speci men Type: URINE SPECIMEN Ordering Facility: [facility] Address: [address] [place] [address] Performed By: #### 6 30-4, 99480-0 #### [facility] CLIA [id number] [address] [place] [address] [place] Urobilinogen Ql (U) 0.2 EU/dL Normal 0.2-1.0 EU/dL [facility] Comment on above: Order Comment: Speci men Type: URINE SPECIMEN Ordering Facility: [facility] Address: [address] [place] [address] Performed By: #### 6 30-4, 10004-8 #### [facility] CLIA [id number] [address] [place] [address] [place] WBC LM.HPF (Urine sed) [#/Area] 11-25 /HPF Abnormal 0-5 /HPF [facility] Comment on above: Order Comment: Speci men Type: URINE SPECIMEN Ordering Facility: [facility] Address: [address] [place] [address] Performed By: #### 6 30-4, 44182-4 #### [facility] CLIA [id number] [address] [place] [address] [place] Covid-19 PCR (CVDTBH)on SARS-CoV-2 (COVID-19) RNA LUANNE+probe Ql (Unsp spec) Not detected Normal NOT DETECTED [facility] Comment on above: Result Comment: This test is not yet approved or cleared by the [place] FDA. When there are no FDA-approved or cleared tests available, and other criteria are met, FDA can make tests available under an emergency access mechanism called an Emergency Use Authorization (EUA). The EUA for this test is supported by the [place] of Health and Human Service's (HHS's) declaration [...] SARS-CoV-2. Performed By: #### C VDTBH #### [facility] [address] [place] [address] Dr. Juan Pablo Kaminski Bacteria Ur Culton 2 Bacteria identified Cx Nom (U) No growth (<1,000 CFU/ml) Normal [facility] Comment on above: Order Comment: Speci men Type: URINE SPECIMEN Ordering Facility: [facility] Address: [address] [place], [place] [address] Performed By: #### 6 30-4 #### [facility] CLIA [id number] [address] [place] [address] [place] [address] [place] Basic metabolic 2000 panelon 11-07-2021 Anion gap [Moles/Vol] 10 mmol/L Normal - [facility] Comment on above: Order Comment: Speci men Type: URINE SPECIMEN Ordering Facility: [facility] Address: [address] [place] [id number] Performed By: #### 6 30-4, 49962-0 #### [facility] CLIA [id number] [address] [place] [address] [place] Calcium [Mass/Vol] 9.1 mg/dL Normal 8.5-10.2 [facility] Comment on above: Order Comment: Speci men Type: URINE SPECIMEN Ordering Facility: [facility] Address: [address] [place], [place] [address] Performed By: #### 6 30-4, 33022-0 #### [facility] CLIA [id number] [address] [place] [address] [place] Chloride [Moles/Vol] 95 mmol/L Low 97-105 [facility] Comment on above: Order Comment: Speci men Type: URINE SPECIMEN Ordering Facility: [facility] Address: [address] [place] [address] Performed By: #### 6 30-4, 08007-4 #### [facility] CLIA [id number] [address] [place] [address] [place] CO2 [Moles/Vol] 25 mmol/L Normal 22-30 [facility] Comment on above: Order Comment: Speci men Type: URINE SPECIMEN Ordering Facility: [facility] Address: [address] [place], [place] [address] Performed By: #### 6 30-4, 93849-7 #### [facility] CLIA [id number] [address] [place] [address] [place] Creatinine [Mass/Vol] 1.25 mg/dL High 0.73-1.22 [facility] Comment on above: Order Comment: Speci men Type: URINE SPECIMEN Ordering Facility: [facility] Address: [address] [place], [place] [address] Performed By: #### 6 30-4, 45108-9 #### [facility] CLIA [id number] [address] [place] [address] [place] ESTIMATED GLOMERULAR FILTRATION RATE 57 mL/min/1.73m??? Low >=60 [facility] Comment on above: Order Comment: Domonique garcia Type: URINE SPECIMEN Ordering Facility: [facility] Address: [address] [place], [place] [address] Result Comment: Annalise mated Glomerular Filtration Rate [...] actual GFR. Performed By: #### 6 30-4, 43279-0 #### [facility] CLIA [id number] [address] [place] [address] [place] Glucose [Mass/Vol] 129 mg/dL High 74-99 [facility] Comment on above: Order Comment: Domonique garcia Type: URINE SPECIMEN Ordering Facility: [facility] Address: [address] [place], [place] [address] Result Comment: The [place] Diabetes Association (ADA) provides guidance for cutoff [...] Standards of Medical Care in Diabetes 2016, [place] [employer]. Diabetes Care. 2016.39(Suppl 1). Performed By: #### 6 30-4, 19038-8 #### [facility] CLIA [id number] [address] [place] [address] [place] Potassium [Moles/Vol] 4.6 mmol/L Normal 3.7-5.1 [facility] Comment on above: Order Comment: Speci men Type: URINE SPECIMEN Ordering Facility: [facility] Address: [address] [place], [place] [address] Performed By: #### 6 30-4, 24591-9 #### [facility] CLIA [id number] [address] [place] [address] [place] Sodium [Moles/Vol] 130 mmol/L Low 136-144 [facility] Comment on above: Order Comment: Speci men Type: URINE SPECIMEN Ordering Facility: [facility] Address: [address] [place] [address] Performed By: #### 6 30-4, 29290-2 #### [facility] CLIA [id number] [address] [place] [address] [place] Urea nitrogen [Mass/Vol] 23 mg/dL Normal 9-24 [facility] Comment on above: Order Comment: Speci men Type: URINE SPECIMEN Ordering Facility: [facility] Address: [address] [place], [place] [address] Performed By: #### 6 30-4, 14001-6 #### [facility] CLIA [id number] [address] [place] [address] [place] CBC W Auto Differential pane l (Bld)on 11-07-2021 Basophils/100 WBC (Bld) 0.0 % Normal [facility] Comment on above: Order Comment: Speci men Type: URINE SPECIMEN Ordering Facility: [facility] Address: [address] [place], [place] [address] Performed By: #### 6 30-4, 26859-8 #### [facility] CLIA [id number] [address] [place] [address] [place] Differential cell count method Nom (Bld) Manual Normal [facility] Comment on above: Order Comment: Speci men Type: URINE SPECIMEN Ordering Facility: [facility] Address: [address] [place], [place] [address] Performed By: #### 6 30-4, 94357-3 #### [facility] CLIA [id number] [address] [place] [address] [place] Eosinophils (Bld) [#/Vol] 0.10 10*3/uL Normal <0.46 [facility] Comment on above: Order Comment: Speci men Type: URINE SPECIMEN Ordering Facility: [facility] Address: [address] [place], [place] [address] Performed By: #### 6 30-4, 06136-0 #### [facility] CLIA [id number] [address] [place] [address] [place] Eosinophils/100 WBC (Bld) 1.0 % Normal [facility] Comment on above: Order Comment: Speci men Type: URINE SPECIMEN Ordering Facility: [facility] Address: [address] [place] [address] Performed By: #### 6 30-4, 16419-1 #### [facility] CLIA [id number] [address] [place] [address] [place] Erythrocyte distribution width (RBC) [Ratio] 11.5 % Normal 11.5-15.0 [facility] Comment on above: Order Comment: Speci men Type: URINE SPECIMEN Ordering Facility: [facility] Address: [address] [place], [place] [address] Performed By: #### 6 30-4, 12963-2 #### [facility] CLIA [id number] [address] [place] [address] [place] Hematocrit (Bld) [Volume fraction] 39.8 % Normal 39.0-51.0 [facility] Comment on above: Order Comment: Speci men Type: URINE SPECIMEN Ordering Facility: [facility] Address: [address] [place], [place] [address] Performed By: #### 6 30-4, 13573-3 #### [facility] CLIA [id number] [address] [place], [place] [address] [place] Hemoglobin (Bld) [Mass/Vol] 13.4 g/dL Normal 13.0-17.0 [facility] Comment on above: Order Comment: Speci men Type: URINE SPECIMEN Ordering Facility: [facility] Address: [address] [place] [address] Performed By: #### 6 30-4, 54397-6 #### [facility] CLIA [id number] [address] [place] [address] [place] Lymphocytes (Bld) [#/Vol] 1.67 10*3/uL Normal 1.00-4.00 [facility] Comment on above: Order Comment: Speci men Type: URINE SPECIMEN Ordering Facility: [facility] Address: [address] [place] [address] Performed By: #### 6 30-4, 77726-0 #### [facility] CLIA [id number] [address] [place] [address] [place] Lymphocytes/100 WBC (Bld) 17.0 % Normal [facility] Comment on above: Order Comment: Speci men Type: URINE SPECIMEN Ordering Facility: [facility] Address: [address] [place] [address] Performed By: #### 6 30-4, 57828-4 #### [facility] CLIA [id number] [address] [place] [address] [place] MCH (RBC) [Entitic mass] 31.5 pg Normal 26.0-34.0 [facility] Comment on above: Order Comment: Speci men Type: URINE SPECIMEN Ordering Facility: [facility] Address: [address] [place] [address] Performed By: #### 6 30-4, 14322-3 #### [facility] CLIA [id number] [address] [place] [address] [place] MCHC (RBC) [Mass/Vol] 33.7 g/dL Normal 30.5-36.0 [facility] Comment on above: Order Comment: Speci men Type: URINE SPECIMEN Ordering Facility: [facility] Address: [address] [place], [place] [address] Performed By: #### 6 30-4, 14451-1 #### [facility] CLIA [id number] [address] [place] [address] [place] MCV (RBC) [Entitic vol] 93.4 fL Normal 80.0-100.0 [facility] [facility] Comment on above: Order Comment: Speci men Type: URINE SPECIMEN Ordering Facility: [facility] Address: [address] [place], [place] [address] Performed By: #### 6 30-4, 22510-1 #### [facility] CLIA [id number] [address] [place] [address] [place] Neutrophils (Bld) [#/Vol] 6.29 10*3/uL Normal 1.45-7.50 [facility] Comment on above: Order Comment: Speci men Type: URINE SPECIMEN Ordering Facility: [facility] Address: [address] [place], [place] [address] Performed By: #### 6 30-4, 76839-3 #### [facility] CLIA [id number] [address] [place] [address] [place] Neutrophils/100 WBC (Bld) 64.0 % Normal [facility] Comment on above: Order Comment: Speci men Type: URINE SPECIMEN Ordering Facility: [facility] Address: [address] [place], [place] [address] Performed By: #### 6 30-4, 84065-2 #### [facility] CLIA [id number] [address] [place] [address] [place] Nucleated RBC/100 WBC (Bld) [Ratio] 0.0 /100 WBC Normal [facility] Comment on above: Order Comment: Speci men Type: URINE SPECIMEN Ordering Facility: [facility] Address: [address] [place], [place] [address] Performed By: #### 6 30-4, 36178-1 #### [facility] CLIA [id number] [address] [place] [address] [place] PLATELET ESTIMATE Adequate Normal [facility] Comment on above: Order Comment: Speci men Type: URINE SPECIMEN Ordering Facility: [facility] Address: [address] [place], [place] [address] Performed By: #### 6 30-4, 71658-8 #### [facility] CLIA [id number] [address] [place] [address] [place] Platelet mean volume (Bld) [Entitic vol] 10.2 fL Normal 9.0-12.7 [facility] Comment on above: Order Comment: Speci men Type: URINE SPECIMEN Ordering Facility: [facility] Address: [address] [place], [place] [address] Performed By: #### 6 30-4, 15631-0 #### [facility] CLIA [id number] [address] [place] [address] [place] Platelets (Bld) [#/Vol] 258 10*3/uL Normal 150-400 [facility] Comment on above: Order Comment: Speci men Type: URINE SPECIMEN Ordering Facility: [facility] Address: [address] [place], [place] [address] Performed By: #### 6 30-4, 30249-3 #### [facility] CLIA [id number] [address] [place] [address] [place] RBC (Bld) [#/Vol] 4.26 10*6/uL Normal 4.20-6.00 [facility] Comment on above: Order Comment: Speci men Type: URINE SPECIMEN Ordering Facility: [facility] Address: [address] [place], [place] [address] Performed By: #### 6 30-4, 75325-0 #### [facility] CLIA [id number] [address] [place] [address] [place] RED CELL MORPH Reviewed: unremarkable Normal [facility] Comment on above: Order Comment: Speci men Type: URINE SPECIMEN Ordering Facility: [facility] Address: [address] [place] [address] Performed By: #### 6 30-4, 22468-9 #### [facility] CLIA [id number] [address] [place] [address] [place] WAM - ABS BASO 0.00 k/uL Normal <0.11 [facility] Comment on above: Order Comment: Speci men Type: URINE SPECIMEN Ordering Facility: [facility] Address: [address] [place] [address] Performed By: #### 6 30-4, 85800-2 #### [facility] CLIA [id number] [address] [place] [address] [place] WAM - ABS MONO 1.77 k/uL High <0.87 [facility] Comment on above: Order Comment: Speci men Type: URINE SPECIMEN Ordering Facility: [facility] Address: [address] [place], [place] [address] Performed By: #### 6 30-4, 26461-8 #### [facility] CLIA [id number] [address] [place] [address] [place] WAM - MONO% 18.0 % Normal [facility] Comment on above: Order Comment: Speci men Type: URINE SPECIMEN Ordering Facility: [facility] Address: [address] [place], [place] [address] Performed By: #### 6 30-4, 43701-2 #### [facility] CLIA [id number] [address] [place] [address] [place] WAM ABSOLUTE NRBC <0.01 Normal <0.01 [facility] Comment on above: Order Comment: Speci men Type: URINE SPECIMEN Ordering Facility: [facility] Address: [address] [place] [address] Performed By: #### 6 30-4, 09271-3 #### [facility] CLIA [id number] [address] [place] [address] [place] WBC (Bld) [#/Vol] 9.83 10*3/uL Normal 3.70-11.00 [facility] Comment on above: Order Comment: Speci men Type: URINE SPECIMEN Ordering Facility: [facility] Address: [address] [place], [place] [address] Performed By: #### 6 30-4, 81611-9 #### [facility] CLIA [id number] [address] [place] [address] OF [facility] ED NOTEon 11-07-2021 ED NOTE HNO ID: [id number] Author: Yoshi Schumacher RN Service: ? Author Type: Registered Nurse Type: ED Notes Filed: 11/07/2021 5:14 PM Note Text: Pt provided with discharged instructions. Medications gone over and all questions answered. Pt. Left with steady gait with friend for a ride. [facility] ED NOTE HNO ID: [id number] Author: Flaquita Donnelly RN Service: ? Author Type: Registered Nurse Type: ED Notes Filed: 11/07/2021 1:24 PM Note Text: Pt to ED for urinary retention. Pt had appointment with Urology on Wednesday, but was not able to be seen. Pt denies pain, but reports pressure in the bladder. Pt states he is not able to urinate completely and reports dribbling. [facility] ED PROV NOTEon 11-07-2021 ED PROV NOTE HNO ID: [id number] Author: Keely Gutierrez DO Service: Emergency Medicine [...] this Wednesday with his urologist out of [place] but was notified that his urologist [...] Abnormal; Notable for the following components: Abs Nance 1.77 (*) <0.87 k/uL All other components [...] cysts one of which is mildly complex. Eyeglass Lens Grinder: LIANA Transcribe Date/Time: Nov 07 2021 2:57P [...] to urinate for Hamilton catheter placement at (more content not included)... [facility] US KIDNEY/BLADDERon 11-08-19 22 US KIDNEY/BLADDER * * *Final Report* * * DATE OF EXAM: Nov 07 2021 2:52PM [facility] 1055 - US KIDNEY/BLADDER / PROCEDURE [...] cysts one of which is mildly complex. Eyeglass Lens Grinder: LIANA Transcribe Date/Time: Nov 07 2021 2:57P Dictated by : NEHEMIAS COLBERT MD This examination was interpreted and the report reviewed and electronically signed by: NEHEMIAS COLBERT MD on Nov 07 2021 3:09PM EST [id number] Normal [facility] Urinalysis complete panel (U )on 11-07-2021 Bilirubin Ql (U) Negative Normal Negative [facility] pital Comment on above: Order Comment: Speci men Type: URINE SPECIMEN Ordering Facility: [facility] Address: [address] [place], [place] [address] Performed By: #### 6 30-4, 70303-0 #### [facility] CLIA [id number] [address] [place] [address] [place] [address] [place] Clarity (Unsp spec) Clear Normal Clear [facility] Comment on above: Order Comment: Speci men Type: URINE SPECIMEN Ordering Facility: [facility] Address: [address] [place], [place] [address] Performed By: #### 6 30-4, 91346-4 #### [facility] CLIA [id number] [address] [place] [address] [place] Color (U) Yellow Normal Yellow [facility] Comment on above: Order Comment: Speci men Type: URINE SPECIMEN Ordering Facility: [facility] Address: [address] [place], [place] [address] Performed By: #### 6 30-4, 02070-4 #### [facility] CLIA [id number] [address] [place] [address] [place] Epithelial cells LM.HPF (Urine sed) [#/Area] Few Normal [facility] Comment on above: Order Comment: Speci men Type: URINE SPECIMEN Ordering Facility: [facility] Address: [address] [place] [address] Performed By: #### 6 30-4, 80149-7 #### [facility] CLIA [id number] [address] [place] [address] [place] Glucose Test strip (U) [Mass/Vol] Negative Normal Negative [facility] Comment on above: Order Comment: Speci men Type: URINE SPECIMEN Ordering Facility: [facility] Address: [address] [place], [place] [address] Performed By: #### 6 30-4, 53782-9 #### [facility] CLIA [id number] [address] [place] [address] [place] Hemoglobin Ql (U) Negative Normal Negative [facility] Comment on above: Order Comment: Speci men Type: URINE SPECIMEN Ordering Facility: [facility] Address: [address] [place], [place] [address] Performed By: #### 6 30-4, 12182-7 #### [facility] CLIA [id number] [address] [place] [address] [place] Hyaline casts (Urine sed) [#/Area] 1-3 /LPF Abnormal 0 /LPF [facility] Comment on above: Order Comment: Speci men Type: URINE SPECIMEN Ordering Facility: [facility] Address: [address] [place] [address] Performed By: #### 6 30-4, 37485-9 #### [facility] CLIA [id number] [address] [place] [address] [place] Ketones Ql (U) Trace Abnormal Negative [facility] Comment on above: Order Comment: Speci men Type: URINE SPECIMEN Ordering Facility: [facility] Address: [address] [place] [address] Performed By: #### 6 30-4, 12769-4 #### [facility] CLIA [id number] [address] [place] [address] [place] Leukocyte esterase Test strip Ql (U) Negative Normal Negative [facility] Comment on above: Order Comment: Speci men Type: URINE SPECIMEN Ordering Facility: [facility] Address: [address] [place] [address] Performed By: #### 6 30-4, 39349-5 #### [facility] CLIA [id number] [address] [place] [address] [place] Nitrite Ql (U) Negative Normal Negative [facility] Comment on above: Order Comment: Speci men Type: URINE SPECIMEN Ordering Facility: [facility] Address: [address] [place] [address] Performed By: #### 6 30-4, 70543-5 #### [facility] CLIA [id number] [address] [place] [address] [place] pH (U) 5.5 [pH] Normal 5.0-8.0 [facility] Comment on above: Order Comment: Speci men Type: URINE SPECIMEN Ordering Facility: [facility] Address: [address] [place] [address] Performed By: #### 6 30-4, 61760-9 #### [facility] CLIA [id number] [address] [place] [address] [facility] Protein (U) [Mass/Vol] Negative Normal Negative [facility] Comment on above: Order Comment: Speci men Type: URINE SPECIMEN Ordering Facility: [facility] Address: [address] [place] [address] Performed By: #### 6 30-4, 73314-5 #### [facility] CLIA [id number] [address] [place] [address] [place] RBC LM.HPF (Urine sed) [#/Area] 0-3 /HPF Normal 0-3 /HPF [facility] Comment on above: Order Comment: Speci men Type: URINE SPECIMEN Ordering Facility: [facility] Address: [address] [place] [address] Performed By: #### 6 30-4, 95638-2 #### [facility] CLIA [id number] [address] [place] [address] [place] Specific gravity (U) [Rel density] 1.024 Normal 1.005-1.030 [facility] Comment on above: Order Comment: Speci men Type: URINE SPECIMEN Ordering Facility: [facility] Address: [address] [place], [place] [address] Performed By: #### 6 30-4, 54551-3 #### [facility] CLIA [id number] [address] [place] [address] [place] Urobilinogen Ql (U) 0.2 EU/dL Normal 0.2-1.0 EU/dL [facility] Comment on above: Order Comment: Speci men Type: URINE SPECIMEN Ordering Facility: [facility] Address: [address] [place] [address] Performed By: #### 6 30-4, 51542-0 #### [facility] CLIA [id number] [address] [place], [place] [address] [address] [place] WBC LM.HPF (Urine sed) [#/Area] 0-5 /HPF Normal 0-5 /HPF [facility] Comment on above: Order Comment: Speci men Type: URINE SPECIMEN Ordering Facility: [facility] Address: [address] [place] [address] Performed By: #### 6 30-, 94206-0 #### [facility] CLIA [id number] [address] [place] [address] [place] Ambulatory Visit Summaryon 0 10-28-2021 Ambulatory Visit Summary NORBERTO WASHINGTON :1940 Visit Date:10/28/2021 Ambulatory Visit Instructions Your Diagnosis BPH with urinary obstruction Nocturia Post-void dribbling Incomplete emptying of bladder Urinary incontinence Tests Performed Urnls Dip Stick Auto w/o Microscopy POC 42449 Your Care Team Attending Physician - Paul [...] schedule Cysto Where: [facility] [address] [place] [address]- Medications What How Much When Instructions Unchanged [...] Urnls Dip Stick Auto w/o Microscopy POC 17918 (10/28/2021) Bilirubin Urine Dipstick - Negative Blood Urine Dipstick - Negative Glucose Urine Dipstick - Negative Ketones Urine Dipstick - Negative Leukocytes Urine Dipstick - Negative Nitrite Urine Dipstick - Negative Protein Urine Dipstick - Negative Specific Olmitz Urine Dipstick - 1.015 Urine Appearance Urine [...] ? Urina (more content not included)... Normal [facility] Patient Educationon 10-29-19 Patient Education Urology Benign [...] Follow these instructions at home: ? Take nizi-htf-qrjyaby and prescription medicines only as told by [...] You d (more content not included)... Normal [facility] Urology Office/Clinic Noteon 10-28-2021 Urology Office/Clinic Note [...] management of this change in voiding pattern. [facility] Staff Norberto is here today for [...] urine and/or bladder capacity by US- non-imaging 41376 PSA Total Urnls Dip Stick Auto w/o Microscopy POC 09621 Urology Procedure Order 2. Nocturia (R35.1: Nocturia) moderate, Variable 2-5 times per night Ordered: Measure Post Void residual urine and/or bladder capacity by US- non-imaging 25466 PSA Total Urology Procedure Order 3. Post-void dribbling (N39.43: Post-v (more content not included)... Normal [facility] Comment on above: Result Comment: Elec tronically Signed By: Paul Cervantes Jr., MD\.br\Date and Time Signed: 10/28/21 08:47 EDT\.br\Electronically Co-Signed By: Jessie Rivera\.br\Date and Time Co-Signed: 10/28/21 08:39 EDT MICROALBUMIN URINEon 022 Albumin, Urine 5.6 ug/mL Normal Not Estab. [facility] Comment on above: Performed By: #### M ALBLC #### [facility] [address] [place] [address] [address] Juan Pablo Kaminski US CAROTID ART BILon 11-2 022 CAROTID ART SIMONE EXAMINATION: US CAROTID ART [...] SAMY TORRES Date: 2021-10-23 17:19 Normal [facility] CBC AUTO DIFFon 10-21-2021 BASO # 0.0 103/ul Normal 0.0-0.1 [facility] Comment on above: Performed By: #### A 1C #### [facility] [address] [place] [address] Dr. Juan Pablo Kaminski Basophils/100 WBC (Bld) 0.5 % Normal 0.2-2.0 [facility] Comment on above: Performed By: #### A 1C #### [facility] [address] [address] [address] Juan Pablo Kaminski EO # 0.3 103/ul Normal 0.0-0.7 [facility] Comment on above: Performed By: #### A 1C #### [facility] [address] [place] [address] Dr. Juan Pablo Kaminski Eosinophils/100 WBC (Bld) 3.6 % Normal 0.9-7.0 [facility] Comment on above: Performed By: #### A 1C #### [facility] [address] [place] [address] Dr. Juan Pablo Kaminski Erythrocyte distribution width (RBC) [Ratio] 11.1 % Normal 11.0-15.0 [facility] Comment on above: Performed By: #### A 1C #### [facility] [address] [place] [address] Dr. Juan Pablo Kaminski Hematocrit (Bld) [Volume fraction] 41.8 % Critically low 42.0-54.0 [facility] Comment on above: Performed By: #### A 1C #### [facility] [address] [place] [address] Dr. Juan Pablo Kaminski Hemoglobin (Bld) [Mass/Vol] 14.1 g/dL Normal 14.0-18.0 [facility] Comment on above: Performed By: #### A 1C #### [facility] [address] [place] [address] Dr. Juan Pablo Kaminski IG # 0.03 10e3/ul Normal 0.00-0.03 [facility] Comment on above: Performed By: #### A 1C #### [facility] [address] [place] [address] Dr. Juan Pablo Kaminski IG % 0.4 % Normal 0.0-0.5 [facility] Comment on above: Performed By: #### A 1C #### [facility] [address] [place] [address] Dr. Juan Pablo Kaminski LYMPH # 2.2 103/ul Normal 1.2-3.8 [facility] Comment on above: Performed By: #### A 1C #### [facility] [address] [place] [address] Dr. Juan Pablo Kaminski Lymphocytes/100 WBC (Bld) 29.4 % Normal 20.5-60.0 [facility] Comment on above: Performed By: #### A 1C #### [facility] [address] [place] [address] Dr. Juan Pablo Kaminski MANUAL DIFF REQ NO Normal [facility] Comment on above: Performed By: #### A 1C #### [facility] [address] [address] [address] Juan Pablo Kaminski MCH (RBC) [Entitic mass] 31.8 pg Normal 25.9-34.0 [facility] Comment on above: Performed By: #### A 1C #### [facility] [address] [place] [address] Dr. Juan Pablo Kaminski MCHC (RBC) [Mass/Vol] 33.7 g/dL Normal 29.9-35.2 [facility] Comment on above: Performed By: #### A 1C #### [facility] [address] [place] [address] Dr. Juan Pablo Kaminski MCV (RBC) [Entitic vol] 94.1 fL Critically high 80.0-94.0 [facility] Comment on above: Performed By: #### A 1C #### [facility] [address] [place] [address] Dr. Juan Pablo Kaminski MONO # 0.9 103/ul Critically high 0.3-0.8 [facility] Comment on above: Performed By: #### A 1C #### [facility] [address] [place] [address] Dr. Juan Pablo Kaminski Monocytes/100 WBC (Bld) 11.7 % Normal 1.7-12.0 [facility] Comment on above: Performed By: #### A 1C #### [facility] [address] [place] [address] Dr. Juan Pablo Kaminski NEUT # 4.0 103/ul Normal 1.4-6.5 [facility] Comment on above: Performed By: #### A 1C #### [facility] [address] [place] [address] Dr. Juan Pablo Kaminski Neutrophils/100 WBC (Bld) 54.4 % Normal 43.0-75.0 [facility] Comment on above: Performed By: #### A 1C #### [facility] [address] [place] [address] Dr. Juan Pablo Kaminski Platelet mean volume (Bld) [Entitic vol] 8.6 fL Critically low 9.5-13.5 [facility] Comment on above: Performed By: #### A 1C #### [facility] [address] [address] [address] Juan Pablo Kaminski PLT 231 103/ul Normal 150-450 [facility] Comment on above: Performed By: #### A 1C #### [facility] [address] [address] [address] Juan Pablo Kaminski RBC 4.44 106/ul Critically low 4.70-6.10 [facility] Comment on above: Performed By: #### A 1C #### [facility] [address] [place] [address] Dr. Juan Pablo Kaminski WBC 7.3 103/ul Normal 4.0-11.0 [facility] Comment on above: Performed By: #### A 1C #### [facility] [address] [place] [address] Dr. Juan Pablo Kaminski DIRECT LDLon 10-21-2021 Cholesterol in LDL [Mass/Vol] 106 mg/dL Normal [facility] Comment on above: Performed By: #### A LT, BMP, DLDL #### [facility] [address] [place] [address] Dr. Juan Pablo Kaminski DLDL NORMAL SEE BELOW Normal [facility] Comment on above: Result Comment: <100 mg/dl OPTIMAL 100 - 129 mg/dl NEAR OR ABOVE OPTIMAL 130 - 159 mg/dl BORDERLINE HIGH 160 - 189 mg/dl HIGH >190 mg/dl VERY HIGH Performed By: #### A LT, BMP, DLDL #### [facility] [address] [place] [address] Dr. Juan Pablo Kaminski GLYCOHEMOGLOBIN A1Con 2021 ADA RECOMMENDATION SEE BELOW Normal [facility] Comment on above: Result Comment: ADA RECOMMENDED LIMIT 4.0 - 6.0 ADA THERAPEUTIC TARGET < 7.0 ACTION SUGGESTED > 7.0 Performed By: #### A 1C #### [facility] [address] [place] [address] Dr. Juan Pablo Kaminski Glucose [Mass/Vol] 120 mg/dL Normal [facility] Comment on above: Performed By: #### A 1C #### [facility] [address] [place] [address] Dr. Juan Pablo Kaminski HbA1c (Bld) [Mass fraction] 5.8 % Normal 4.5-6.2 [facility] Comment on above: Performed By: #### A 1C #### [facility] [address] [place] [address] Dr. Juan Pablo Kaminski PROF CHEM 8 (BAS METB)on Anion gap [Moles/Vol] 12.7 mmol/L Normal [facility] Comment on above: Performed By: #### A 1C #### [facility] [address] [place] [address] Dr. Juan Pablo Kaminski Calcium [Mass/Vol] 8.7 mg/dL Normal 8.5-10.1 [facility] Comment on above: Performed By: #### A 1C #### [facility] [address] [place] [address] Dr. Juan Pablo Kaminski Chloride [Moles/Vol] 98 mmol/L Normal 98-107 [facility] Comment on above: Performed By: #### A 1C #### [facility] [address] [place] [address] Dr. Juan Pablo Kaminski CO2 [Moles/Vol] 28.0 mmol/L Normal 21.0-32.0 [facility] Comment on above: Performed By: #### A 1C #### [facility] [address] [place], [place] [id number] Dr. Juan Pablo Kaminski Creatinine [Mass/Vol] 1.07 mg/dL Normal 0.70-1.30 [facility] Comment on above: Performed By: #### A 1C #### [facility] [address] [place] [address] Dr. Juan Pablo Kaminski EGFR-AF LUXEMBOURGER >60 Normal >=60 [facility] Comment on above: Performed By: #### A 1C #### [facility] [address] [place] [address] Dr. Juan Pablo Kaminski EGFR-NON AF LUXEMBOURGER >60 Normal >=60 [facility] Comment on above: Performed By: #### A 1C #### [facility] [address] [place] [address] Dr. Juan Pablo Kaminski Glucose [Mass/Vol] 133 mg/dL Critically high 74-106 T [facility] Comment on above: Performed By: #### A 1C #### [facility] [address] [address] [address] Juan Pablo Kaminski Potassium [Moles/Vol] 4.7 mmol/L Normal 3.5-5.1 [facility] Comment on above: Performed By: #### A 1C #### [facility] [address] [place] [address] Dr. Juan Pablo Kaminski Sodium [Moles/Vol] 134 mmol/L Critically low 136-145 Th [facility] Comment on above: Performed By: #### A 1C #### [facility] [address] [place] [address] Dr. Juan Pablo Kaminski Urea nitrogen [Mass/Vol] 17.0 mg/dL Normal 7.0-18.0 [facility] Comment on above: Performed By: #### A 1C #### [facility] [address] [place] [address] Dr. Juan Pablo Kaminski Urea nitrogen/Creatinine [Mass ratio] 15.9 mg/mg Normal [facility] Comment on above: Performed By: #### A 1C #### [facility] [address] [place] [address] Dr. [facility] ALT [Catalytic activity/Vol] 31 U/L Normal 16-63 [facility] Comment on above: Performed By: #### A 1C #### [facility] [address] [place] [address] Dr. Juan Pablo Kaminski GLYCOHEMOGLOBIN A1Con 2021 ADA RECOMMENDATION SEE BELOW Normal [facility] Comment on above: Result Comment: ADA RECOMMENDED LIMIT 4.0 - 6.0 ADA THERAPEUTIC TARGET < 7.0 ACTION SUGGESTED > 7.0 Performed By: #### A 1C #### [facility] [address] [place] [address] Dr. Juan Pablo Kaminski Glucose [Mass/Vol] 131 mg/dL Normal [facility] Comment on above: Performed By: #### A 1C #### [facility] [address] [address] [address] Juan Pablo Kaminski HbA1c (Bld) [Mass fraction] 6.2 % Normal 4.5-6.2 [facility] Comment on above: Performed By: #### A 1C #### [facility] [address] [place] [address] Dr. Juan Pablo Kaminski Vital Signs Date Time Vital Sign Value Performing Clinician Faci sanket 08-04-2023 08:59-0400 Body mass index (BMI) [Ratio] 27.5 kg/m2 Leticia Rukhsana ASSET ANALYST.REROLLING MACHINE OPERATOR Work Phone: [facility] 08-04-2023 08:59-0400 Body weight 99.79 kg Leticia Ney ASSET ANALYST.REROLLING MACHINE OPERATOR Work Phone: [facility] 08-04-2023 08:59-0400 Diastolic blood pressure 56 mm[Hg] Leticia Rukhsana ASSET ANALYST.REROLLING MACHINE OPERATOR Work Phone: [facility] 08-04-2023 08:59-0400 Heart rate 65 /min Leticia Rukhsana ASSET ANALYST.REROLLING MACHINE OPERATOR Work Phone: [facility] 08-04-2023 08:59-0400 Systolic blood pressure 130 mm[Hg] Leticia Rukhsana ASSET ANALYST.REROLLING MACHINE OPERATOR Work Phone: [facility] 07-09-2023 13:38-0400 Body height 190.5 cm DO Campbell Ball Work Phone: [facility] 07-09-2023 13:38-0400 Body mass index (BMI) [Ratio] 28 kg/m2 DO Campbell Ball Work Phone: [facility] 07-09-2023 13:38-0400 Body weight 101.6 kg DO Campbell Ball Work Phone: [facility] 07-09-2023 13:38-0400 Diastolic blood pressure 60 mm[Hg] DO Campbell Ball Work Phone: [facility] 07-09-2023 13:38-0400 Heart rate 78 /min DO Campbell Ball Work Phone: [facility] 07-09-2023 13:38-0400 Systolic blood pressure 143 mm[Hg] DO Campbell Ball Work Phone: [facility] 06-23-2023 09:16-0400 Body height 190.5 cm DO Campbell Ball Work Phone: [facility] 06-23-2023 09:16-0400 Body mass index (BMI) [Ratio] 28 kg/m2 DO Campbell Ball Work Phone: [facility] 06-23-2023 09:16-0400 Body weight 101.6 kg DO Campbell Ball Work Phone: [facility] 06-23-2023 09:16-0400 Diastolic blood pressure 64 mm[Hg] DO Campbell Ball Work Phone: [facility] 06-23-2023 09:16-0400 Heart rate 69 /min DO Campbell Ball Work Phone: [facility] 06-23-2023 09:16-0400 Respiratory rate 16 /min DO Campbell Ball Work Phone: [facility] 06-23-2023 09:16-0400 Systolic blood pressure 147 mm[Hg] DO Campbell Ball Work Phone: [facility] 05-21-2023 10:53-0500 Body height 190.5 cm DO Campbell Ball Work Phone: [facility] 05-21-2023 10:53-0500 Body mass index (BMI) [Ratio] 27 kg/m2 DO Campbell Ball Work Phone: [facility] 05-21-2023 10:53-0500 Body weight 98.03 kg DO Campbell Ball Work Phone: [facility] 05-21-2023 10:53-0500 Diastolic blood pressure 77 mm[Hg] DO Campbell Ball Work Phone: [facility] 05-21-2023 10:53-0500 Heart rate 76 /min DO Campbell Ball Work Phone: [facility] 05-21-2023 10:53-0500 Respiratory rate 12 /min DO Campbell Ball Work Phone: [facility] 05-21-2023 10:53-0500 Systolic blood pressure 133 mm[Hg] DO Campbell Ball Work Phone: [facility] 05-15-2023 13:10-0500 Body temperature 98.6 [degF] DO Campbell Ball Work Phone: [facility] 05-15-2023 13:10-0500 Diastolic blood pressure 90 mm[Hg] DO Campbell Ball Work Phone: [facility] 05-15-2023 13:10-0500 Heart rate 90 /min DO Campbell Ball Work Phone: [facility] 05-15-2023 13:10-0500 Respiratory rate 18 /min DO Campbell Ball Work Phone: [facility] 05-15-2023 13:10-0500 SaO2% (BldA) [Mass fraction] 97 % DO Campbell Ball Work Phone: [facility] 05-15-2023 13:10-0500 Systolic blood pressure 181 mm[Hg] DO Campbell Ball Work Phone: [facility] 05-15-2023 10:56-0500 Body height 190.5 cm DO Campbell Ball Work Phone: [facility] 05-15-2023 10:56-0500 Body weight 99.9 kg DO Campbell Ball Work Phone: [facility] 04-21-2023 14:30-0500 Body height 190.5 cm Campbell Ball Other [facility] [employer] Other 04-21-2023 14:30-0500 Body mass index (BMI) [Ratio] 28.07 kg/m2 Campbell Ball Other [employer] [facility] [employer] Other 04-21-2023 14:30-0500 Body weight 101.88 kg Campbell Ball Other [employer] Other 04-21-2023 14:30-0500 Diastolic blood pressure 68 mm[Hg] Campbell Ball Other [employer] Other 04-21-2023 14:30-0500 Respiratory rate 12 /min Campbell Ball Other [employer] Other 04-21-2023 14:30-0500 Systolic blood pressure 129 mm[Hg] Campbell Ball Other [employer] Other 03-17-2023 10:30-0500 Body height 190.5 cm Campbell Ball Other [employer] Other 03-17-2023 10:30-0500 Body mass index (BMI) [Ratio] 27.55 kg/m2 Campbell Ball Other [employer] Other 03-17-2023 10:30-0500 Body weight 99.97 kg Campbell Ball Other [employer] Other 03-17-2023 10:30-0500 Diastolic blood pressure 67 mm[Hg] Campbell Ball Other [employer] Other 03-17-2023 10:30-0500 Respiratory rate 12 /min Campbell Ball Other [employer] Other 03-17-2023 10:30-0500 Systolic blood pressure 159 mm[Hg] Campbell Ball Other [employer] Other 02-23-2023 09:30-0500 Body height 190.5 cm Campbell Ball Other [employer] Other 02-23-2023 09:30-0500 Body mass index (BMI) [Ratio] 28.02 kg/m2 Campbell Ball Other [employer] Other 02-23-2023 09:30-0500 Body weight 101.7 kg Campbell Ball Other [employer] Other 02-23-2023 09:30-0500 Diastolic blood pressure 78 mm[Hg] Campbell Ball Other [employer] Other 02-23-2023 09:30-0500 Respiratory rate 12 /min Campbell Ball Other [employer] Other 02-23-2023 09:30-0500 Systolic blood pressure 157 mm[Hg] Campbell Ball Other [employer] Other 02-19-2023 10:45-0500 Body height 190.5 cm Campbell Ball Other [employer] Other 02-19-2023 10:45-0500 Body mass index (BMI) [Ratio] 28 kg/m2 Campbell Ball Other [employer] Other 02-19-2023 10:45-0500 Body weight 101.61 kg Campbell Ball Other [employer] Other 02-19-2023 10:45-0500 Diastolic blood pressure 72 mm[Hg] Campbell Ball Other [employer] Other 02-19-2023 10:45-0500 Respiratory rate 12 /min Campbell Ball Other [employer] Other 02-19-2023 10:45-0500 Systolic blood pressure 144 mm[Hg] Campbell Ball Other [employer] Other 02-02-2023 13:37-0500 Body weight 102.06 kg Leticia Ney ASSET ANALYST.REROLLING MACHINE OPERATOR Work Phone: [facility] 02-02-2023 13:37-0500 Diastolic blood pressure 70 mm[Hg] Leticia Rukhsana ASSET ANALYST.REROLLING MACHINE OPERATOR Work Phone: [facility] 02-02-2023 13:37-0500 Heart rate 65 /min Leticia Rukhsana ASSET ANALYST.REROLLING MACHINE OPERATOR Work Phone: [facility] 02-02-2023 13:37-0500 Systolic blood pressure 146 mm[Hg] Leticia Ney ASSET ANALYST.REROLLING MACHINE OPERATOR Work Phone: [facility] 09-22-2022 12:15-0400 Body height 190.5 cm Campbell Ball Other [employer] Other 09-22-2022 12:15-0400 Diastolic blood pressure 82 mm[Hg] Campbell Ball Other [employer] Other 09-22-2022 12:15-0400 Systolic blood pressure 135 mm[Hg] Campbell Ball Other [employer] Other 09-17-2022 09:00-0400 Body height 190.5 cm Campbell Ball Other [employer] Other 09-17-2022 09:00-0400 Body mass index (BMI) [Ratio] 27.57 kg/m2 Campbell Ball Other [employer] Other 09-17-2022 09:00-0400 Body weight 100.06 kg Campbell Ball Other [employer] Other 09-17-2022 09:00-0400 Diastolic blood pressure 62 mm[Hg] Campbell Ball Other [employer] Other 09-17-2022 09:00-0400 Respiratory rate 12 /min Campbell Ball Other [employer] Other 09-17-2022 09:00-0400 Systolic blood pressure 128 mm[Hg] Campbell Ball Other [employer] Other 06-18-2022 10:00-0400 Body height 190.5 cm Campbell Ball Other [employer] Other 06-18-2022 10:00-0400 Body mass index (BMI) [Ratio] 28.02 kg/m2 Campbell Ball Other [employer] Other 06-18-2022 10:00-0400 Body weight 101.7 kg Campbell Ball Other [employer] Other 06-18-2022 10:00-0400 Diastolic blood pressure 62 mm[Hg] Campbell Ball Other [employer] Other 06-18-2022 10:00-0400 Respiratory rate 12 /min Campbell Ball Other [employer] Other 06-18-2022 10:00-0400 Systolic blood pressure 119 mm[Hg] Campbell Ball Other [employer] Other 04-08-2022 12:00-0500 Body height 190.5 cm Campbell Ball Other [employer] Other 04-08-2022 12:00-0500 Body mass index (BMI) [Ratio] 27.82 kg/m2 Campbell Ball Other [employer] Other 04-08-2022 12:00-0500 Body temperature 97.1 [degF] Campbell Ball Other [employer] Other 04-08-2022 12:00-0500 Body weight 100.97 kg Campbell Ball Other [employer] Other 04-08-2022 12:00-0500 Diastolic blood pressure 68 mm[Hg] Campbell Ball Other [employer] Other 04-08-2022 12:00-0500 SaO2% (BldA) [Mass fraction] 97 % Campbell Ball Other [employer] Other 04-08-2022 12:00-0500 Systolic blood pressure 124 mm[Hg] Campbell Ball Other [employer] Other 03-20-2022 10:00-0500 Body height 190.5 cm Campbell Ball Other [employer] Other 03-20-2022 10:00-0500 Body mass index (BMI) [Ratio] 27.95 kg/m2 Campbell Ball Other [employer] Other 03-20-2022 10:00-0500 Body weight 101.42 kg Campbell Ball Other [employer] Other 03-20-2022 10:00-0500 Diastolic blood pressure 60 mm[Hg] Campbell Ball Other [employer] Other 03-20-2022 10:00-0500 Respiratory rate 12 /min Campbell Ball Other [employer] Other 03-20-2022 10:00-0500 Systolic blood pressure 112 mm[Hg] Campbell Ball Other [employer] Other 01-08-2022 08:47-0400 Body weight 97.52 kg Leonard Dugan MD Work Phone: [facility] 01-08-2022 08:47-0400 Diastolic blood pressure 61 mm[Hg] Leonard Dugan MD Work Phone: [facility] 01-08-2022 08:47-0400 Heart rate 72 /min Leonard Dugan MD Work Phone: [facility] 01-08-2022 08:47-0400 Systolic blood pressure 139 mm[Hg] Leonard Dugan MD Work Phone: [facility] 12-26-2021 08:32-0400 Body temperature 98 [degF] DO Campbell Ball Work Phone: [facility] 12-26-2021 08:32-0400 Diastolic blood pressure 62 mm[Hg] DO Campbell Ball Work Phone: [facility] 12-26-2021 08:32-0400 Heart rate 75 /min DO Campbell Ball Work Phone: [facility] 12-26-2021 08:32-0400 Respiratory rate 18 /min DO Campbell Ball Work Phone: [facility] 12-26-2021 08:32-0400 SaO2% (BldA) [Mass fraction] 98 % DO Campbell Ball Work Phone: [facility] 12-26-2021 08:32-0400 Systolic blood pressure 146 mm[Hg] DO Campbell Ball Work Phone: [facility] 12-17-2021 16:22-0400 Body height 190.5 cm DO Campbell Ball Work Phone: [facility] 12-17-2021 16:22-0400 Body weight 97.52 kg DO Campbell Ball Work Phone: [facility] 12-17-2021 16:19-0400 Body temperature 98.4 [degF] DO Campbell Ball Work Phone: [facility] 12-17-2021 16:19-0400 Diastolic blood pressure 63 mm[Hg] DO Campbell Ball Work Phone: [facility] 12-17-2021 16:19-0400 Heart rate 66 /min DO Campbell Ball Work Phone: [facility] 12-17-2021 16:19-0400 Respiratory rate 16 /min DO Campbell Ball Work Phone: [facility] 12-17-2021 16:19-0400 SaO2% (BldA) [Mass fraction] 96 % DO Campbell Ball Work Phone: [facility] 12-17-2021 16:19-0400 Systolic blood pressure 135 mm[Hg] DO Campbell Ball Work Phone: [facility] 12-16-2021 14:41-0400 Diastolic blood pressure 62 mm[Hg] Leonard Dugan MD Work Phone: [facility] 12-16-2021 14:41-0400 Heart rate 69 /min Leonard Dugan MD Work Phone: [facility] 12-16-2021 14:41-0400 Respiratory rate 16 /min Leonard Dugan MD Work Phone: [facility] 12-16-2021 14:41-0400 Systolic blood pressure 141 mm[Hg] Leonard Dugan MD Work Phone: [facility] 12-11-2021 18:25-0400 Body temperature 97.5 [degF] DO Campbell Ball Work Phone: [facility] 12-11-2021 18:25-0400 Diastolic blood pressure 88 mm[Hg] DO Campbell Ball Work Phone: [facility] 12-11-2021 18:25-0400 Heart rate 67 /min DO Campbell Ball Work Phone: [facility] 12-11-2021 18:25-0400 Respiratory rate 20 /min DO Campbell Ball Work Phone: [facility] 12-11-2021 18:25-0400 SaO2% (BldA) [Mass fraction] 99 % DO Campbell Ball Work Phone: [facility] 12-11-2021 18:25-0400 Systolic blood pressure 175 mm[Hg] DO Campbell Ball Work Phone: [facility] 12-11-2021 16:57-0400 Body height 190.5 cm DO Campbell Ball Work Phone: [facility] 12-11-2021 16:57-0400 Body weight 98.5 kg DO Campbell Ball Work Phone: [facility] 12-10-2021 10:50-0400 Body weight 95.25 kg Nurse Emelia Work Phone: [facility] 12-10-2021 10:50-0400 Diastolic blood pressure 80 mm[Hg] Nurse Emelia Work Phone: [facility] 12-10-2021 10:50-0400 Heart rate 59 /min Nurse Emelia Work Phone: [facility] 12-10-2021 10:50-0400 Systolic blood pressure 152 mm[Hg] Nurse Emelia Work Phone: [facility] 12-09-2021 14:27-0400 Body weight 95.25 kg [employer] [place] Work Phone: [facility] 12-09-2021 14:27-0400 Diastolic blood pressure 68 mm[Hg] [employer] [place] Work Phone: [facility] 12-09-2021 14:27-0400 Heart rate 70 /min [employer] [place] Work Phone: [facility] 12-09-2021 14:27-0400 Systolic blood pressure 164 mm[Hg] [employer] [place] Work Phone: [facility] 11-12-2021 11:23-0400 Body weight 96.16 kg Leonard Dugan MD Work Phone: [facility] 11-12-2021 11:23-0400 Diastolic blood pressure 73 mm[Hg] Leonard Dugan MD Work Phone: [facility] 11-12-2021 11:23-0400 Heart rate 56 /min Leonard Dugan MD Work Phone: [facility] 11-12-2021 11:23-0400 Systolic blood pressure 162 mm[Hg] Leonard Dugan MD Work Phone: [facility] Encounters Encounter Date Encounter Type Care Provider Facility Start: 08-04-2023 End: 08-04-2023 ambulatory LETICIA MILIAN Facility:[facility] Start: 08-04-2023 End: 08-04-2023 Patient encounter procedure Leticia Milian ASSET ANALYST.REROLLING MACHINE OPERATOR Work Phone: Urology Comment on above: Benign prostatic hyp erplasia, unspecified whether lower urinary tract symptoms present (Primary Dx); Recurrent UTI; Nocturia Start: 07-26-2023 End: 07-26-2023 ambulatory CAMPBELL Duncan BALL Facility:[facility] Start: 07-22-2023 End: 07-22-2023 ambulatory Jhon Sanderson [facility] Facility:[facility] Start: 07-22-2023 End: 07-22-2023 ambulatory DO Cambpell Ball Work Phone: [facility] Work Phone: Start: 07-22-2023 End: 07-22-2023 Departed Referred DO Campbell Ball Work Phone: [facility] Start: 07-22-2023 Non-patient / Non-visit DO Lenin farnk Quentin [facility] Phone[facility] Work Phone: Start: 07-12-2023 End: 07-12-2023 ambulatory Jhon Sanderson [facility] Facility:[facility] Start: 07-12-2023 End: 07-12-2023 ambulatory DO Capmbell Ball Work Phone: [facility] Work Phone: Start: 07-12-2023 End: 07-12-2023 Departed Referred DO Campbell Ball Work Phone: [facility] Start: 07-09-2023 End: 07-09-2023 ambulatory DO Campbell Ball Work Phone: [facility] Work Phone: Start: 07-09-2023 End: 07-09-2023 Patient encounter procedure DO Campbell Ball Work Phone: [facility] Work Phone: Start: 07-06-2023 Non-patient / Non-visit DO Lenin monika Ball Work Phone: [facility] Work Phone: Start: 06-23-2023 End: 06-23-2023 ambulatory DO Campbell Ball Work Phone: [facility] Work Phone: Start: 06-23-2023 End: 06-23-2023 Patient encounter procedure DO Campbell Ball Work Phone: [facility] Work Phone: Start: 05-31-2023 Non-patient / Non-visit DO Lenin monika Ball Work Phone: [facility] Work Phone: Start: 05-21-2023 End: 05-21-2023 Patient encounter procedure DO Campbell Ball Work Phone: [facility] Work Phone: Start: 05-15-2023 End: 05-15-2023 Emergency department patient visit Low Carter Facility:[facility] Start: 05-15-2023 End: 05-15-2023 Emergency department patient visit DO Campbell Ball Work Phone: [facility] Work Phone: Start: 05-03-2023 Non-patient / Non-visit DO Lenin monika Ball Work Phone: [facility] Work Phone: Start: 04-30-2023 Non-patient / Non-visit DO Lenin monika Ball Work Phone: [facility] Work Phone: Start: 04-21-2023 End: 04-21-2023 ambulatory Campbell Naranjo Other [employer] Other Start: 04-21-2023 Transitional care manage srvc 14 day discharge Campbell Ball [facility] Start: 04-19-2023 End: 04-19-2023 ambulatory Campbell Naranjo Other [employer] Other Start: 04-19-2023 Telephone encounter Campbell Ball [facility] Start: 04-15-2023 End: 04-15-2023 ambulatory Campbell Naranjo Other [employer] Other Start: 04-15-2023 Telephone encounter Campbell Ball [facility] Start: 03-17-2023 End: 03-17-2023 ambulatory Campbell Naranjo Other [employer] Other Start: 03-17-2023 Transitional care manage srvc 14 day discharge Campbell Ball [facility] Start: 03-04-2023 End: 03-04-2023 ambulatory Campbell Naranjo Other [employer] Other Start: 03-04-2023 Telephone encounter Campbell Ball [facility] Start: 02-23-2023 End: 02-23-2023 ambulatory Campbell Naranjo Other [employer] Other Start: 02-23-2023 Office outpatient vi sit 15 minutes Campbell Ball [facility] Start: 02-23-2023 Telephone encounter Campbell Ball [facility] Start: 02-19-2023 End: 02-19-2023 ambulatory Campbell Quentin Other [employer] Other Start: 02-19-2023 Office outpatient vi sit 15 minutes Campbell Ball [facility] Start: 02-02-2023 End: 02-02-2023 ambulatory CAMPBELL Dakota NARANJO Facility:[facility] Start: 02-02-2023 End: 02-02-2023 Patient encounter procedure Leticia Sanderson Rukhsana ASSET ANALYST.REROLLING MACHINE OPERATOR Work Phone: Urology Comment on above: BPH with obstruction /lower urinary tract symptoms (Primary Dx); Recurrent UTI; Weak urinary stream Start: 01-19-2023 End: 01-19-2023 ambulatory CAMPBELL NARANJO Facility:[facility] Start: 01-13-2023 End: 01-13-2023 Emergency department patient visit Low Kaylin Carter Facility:[facility] Start: 01-13-2023 End: 01-13-2023 Emergency department patient visit DO Campbell Naranjo Work Phone: [facility] Work Phone: Start: 12-21-2022 End: 12-21-2022 ambulatory Campbell Naranjo Other [employer] Other Start: 12-21-2022 Telephone encounter Campbell Ro [facility] Start: 09-22-2022 End: 09-22-2022 ambulatory Campbell Naranjo Other [employer] Other Start: 09-22-2022 Office outpatient vi sit 15 minutes Campbell Naranjo [facility] Start: 09-20-2022 End: 09-20-2022 ambulatory Cornell Baptiste Other [employer] Other Start: 09-20-2022 Encounter by gabbi Baptiste [facility] Start: 09-17-2022 End: 09-17-2022 ambulatory Campbell Naranjo Other [employer] Other Start: 09-17-2022 Office outpatient vi sit 25 minutes Campbell Naranjo [facility] Start: 09-15-2022 End: 09-15-2022 ambulatory Cornell Baptiste Other [employer] Other Start: 09-15-2022 Encounter by gabbi Baptiste [facility] Start: 06-25-2022 End: 06-26-[address] CAMPBELL NARANJO Facility:[facility] Start: 06-18-2022 End: 06-18-2022 ambulatory Campbell Naranjo Other [employer] Other Start: 06-18-2022 Office outpatient vi sit 25 minutes Campbell Quentin [facility] Start: 06-02-2022 End: 06-03-[address] CAMPBELL NARANJO Facility:[facility] Start: 04-08-2022 End: 04-08-2022 ambulatory Campbell Naranjo Other [employer] Other Start: 04-08-2022 Office outpatient vi sit 15 minutes Campbell Naranjo [facility] Start: 03-24-2022 End: 03-24-2022 ambulatory Campbell Naranjo Other [employer] Other Start: 03-24-2022 Telephone encounter Campbell Naranjo [facility] Start: 03-20-2022 Office outpatient vi sit 25 minutes Campbell Naranjo [facility] Start: 03-20-2022 End: 03-21-2022 ambulatory DR CAMPBELL NARANJO [facility] [employer] Other Start: 01-08-2022 End: 01-08-2022 Patient encounter procedure Leonard Dugan MD Work Phone: Urology Comment on above: Chronic epididymitis (Primary Dx); Left hydrocele; Weak urinary stream; BPH without obstruction/lower urinary tract symptoms; Epididymitis Start: 01-07-2022 Refill Leonard Dugan MD Work Phone: Urology Comment on above: Refill Request Start: 12-26-2021 End: 12-26-2021 ambulatory DO Campbell Naranjo Work Phone: [facility] Work Phone: Start: 12-26-2021 End: 12-26-2021 Discharged Recurring DO Campbell Naranjo Work Phone: [facility]-Infusion Therapy - O/P Start: 12-25-2021 End: 12-26-[address] CAMPBELL NARANJO Facility:[facility]1 Start: 12-17-2021 End: 12-17-2021 Emergency department patient visit DO Campbell Naranjo Work Phone: [facility]-Emergency Room Start: 12-16-2021 End: 12-16-2021 Patient encounter procedure Leonard Dugan MD Work Phone: Urology Comment on above: Retention of urine ( Primary Dx); Flaccid bladder Start: 12-15-2021 Telephone encounter Leticia puentes APRN.REROLLING MACHINE OPERATOR Work Phone: Urology Comment on above: Patient Update Start: 12-11-2021 End: 12-11-2021 Emergency department patient visit DO Campbell Naranjo Work Phone: [facility]-Emergency Room Start: 12-11-2021 Telephone encounter Leonard Dugan MD Work Phone: Urology Comment on above: Patient Update Start: 12-10-2021 End: 12-10-2021 Nursing evaluation of patient and report Nurse [facility] Work Phone: Urology Comment on above: Urinary tract infect ion without hematuria, site unspecified (Primary Dx); Feeling of incomplete bladder emptying; Benign prostatic hyperplasia with urinary retention Start: 12-09-2021 End: 12-09-2021 Nursing evaluation of patient and report [facility] [place] Work Phone: Urology Comment on above: Urinary [...] 11-07-2021 Emergency department patient visit RAN [place] Facility:[facility] Start: 10-23-2021 End: 10-24-[address] CAMPBELL NARANJO Facility:[facility] Start: 10-21-2021 End: 10-22-[address] CAMPBELL NARANJO Facility:[facility] Start: 10-20-2021 Adult health examination Campbell Naranjo Other [employer] Other Start: 07-17-2021 End: 07-18-[address] CAMPBELL NARANJO Facility:[facility] Start: 01-09-2020 End: 01-09-2020 Pre-procedure evaluation check Campbell Naranjo Other [employer] Other Procedures Date Procedure Procedure Detail Performing Clinician Start: 05-15-2023 Duplex scan of lower limb veins DO Campbell Quentin Work Phone: Start: 10-14-2021 Depression screening Be juarez Naranjo Other Start: 03-23-2016 Screening for malign ant neoplasm of colon Campbell Naranjo Other Start: 01-30-2015 Screening for malign ant neoplasm of prostate Campbell Naranjo Other Urine culture DO Campbell Ba ll Work Phone: Urine culture DO Campbell Ba ll Work Phone: Urine culture DO Campbell Ba ll Work Phone: Plan of Treatment Date Care Activity Detail Author Start: 07-25-2026 Diabetes Screening Diabetes Screenin celine [facility] Start: 02-08-2024 End: 02-08-2024 Patient encounter procedure 02/08/2024 8:30 AM EST Office Visit Urology [address] [place] [address] Leticia Milian, ASSET ANALYST.REROLLING MACHINE OPERATOR [address] [place] [address] Return in about 6 months (around 02/04/2024) for rto for evalution of BPH w obs/luts, UTI AUA, PVR . Urology Comment on above: Return in about 6 mo nths (around 02/04/2024) for rto for evalution of BPH w obs/luts, UTI AUA, PVR . Start: 03-15-2023 Advance Directive Discussion Advance Directive Discussion [facility] Start: 03-15-2023 Behavioral Health Screening Behavioral Health Screening [facility] Start: 12-28-2022 Urine microalbumin profile DTaP,Tdap,Td Vaccine (3 - Tdap) [facility] Start: 11-13-2022 Covid-19 Vaccine () Covid-19 Vaccine () [facility] Start: 03-15-2022 Advance Directive Discussion Advance Directive Discussion [facility] Start: 03-15-2022 Depression Assessment Depression Ass essment [facility] Start: 01-08-2022 End: 03-10-2022 Bacteria identified in Urine by Culture URINE CULTURE Microbiology Routine Left hydrocele Chronic epididymitis Weak urinary stream BPH without obstruction/lower urinary tract symptoms Epididymitis Expected: 01/08/2022 (Approximate), Expires: 03/10/2022 [facility] Work Phone: Comment on above: Expected: 01/08/2022 (Approximate), Expires: 03/10/2022 Start: 01-08-2022 End: 03-10-2022 URINALYSIS, REFLEX MICROSCOPIC URINALYSIS, REFLEX MICROSCOPIC Lab Routine Left hydrocele Chronic epididymitis Weak urinary stream BPH without obstruction/lower urinary tract symptoms Epididymitis Expected: 01/08/2022 (Approximate), Expires: 03/10/2022 [facility] Work Phone: Comment on above: Expected: 01/08/2022 (Approximate), Expires: 03/10/2022 Start: 12-10-2021 End: 02-09-2022 Bacteria identified in Urine by Culture URINE CULTURE Microbiology Routine Urinary tract infection without hematuria, site unspecified Expected: 12/10/2021, Expires: 02/09/2022 [facility] Work Phone: Comment on above: Expected: 12/10/2021 , Expires: 02/09/2022 Start: 11-13-2021 Influenza vaccination INFLUENZA (#1) [facility] Start: 11-12-2021 URODYNAMICS URODYNAMICS Pr ocedures Routine 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 Expected: 11/12/2021 (Approximate) [facility] Work Phone: Comment on above: Expected: 11/12/2021 (Approximate) Start: 08-11-2021 COVID-19 VACCINE (5 - Booster for Pfizer series) COVID-19 VACCINE (5 - Booster for Pfizer series) [facility] Start: 03-15-2021 ADVANCE DIRECTIVE DISCUSSION ADVANCE DIRECTIVE DISCUSSION [facility] Start: 03-15-2021 DEPRESSION ASSESSMENT DEPRESSION ASS ESSMENT [facility] Start: 05-26-2012 3 comp foot exam completed DIABETIC FOOT EXAM [facility] Start: 1998 Hepatitis B Vaccine (1 of 3 - Risk 3-dose series) Hepatitis B Vaccine (1 of 3 - Risk 3-dose series) [facility] Start: 1998 RSV Vaccine (1 - 1-d ose 60+ series) RSV Vaccine (1 - 1-dose 60+ series) [facility] Start: 1988 SHINGRIX VACCINE (1 of 2) SHINGRIX VACCINE (1 of 2) [facility] Start: 1957 Urine microalbumin profile DTAP,TDAP,TD (1 - Tdap) [facility] Start: 1956 Hepatitis B surface antibody level LDL CHOLESTEROL [facility] Start: 1948 Hepatitis B screening URINE ALBUMIN:CREATININE RATIO [facility] Start: 1948 Hepatitis C antibody , confirmatory test DILATED RETINAL EXAM [facility] Start: 1944 PNEUMOCOCCAL: 65+ (1 - PCV) PNEUMOCOCCAL: 65+ (1 - PCV) [facility] Start: 1943 Hemoglobin A1c/Hemoglobin.total in Blood HBA1C [facility] Bacteria identified in Urine by Culture [facility] End: 02-02-2024 Bacteria identified in Urine by Culture URINE CULTURE Microbiology Routine Recurrent UTI 5 Occurrences starting 02/02/2023 until 02/02/2024 [facility] Work Phone: Comment on above: 5 Occurrences starti ng 02/02/2023 until 02/02/2024 Patient Education [facility] Work Phone: Patient referral [facility] Work Phone: End: 01-14-2024 Urinalysis complete panel - Urine URINALYSIS, WITH MICROSCOPIC Lab Routine Recurrent UTI 5 Occurrences starting 02/02/2023 until 01/14/2024 [facility] Work Phone: Comment on above: 5 Occurrences starti ng 02/02/2023 until 01/14/2024 [facility] Immunizations Immunization Date Immunization Notes Care Provider [place] 12-01-2022 influenza virus vaccine, unspecified formulation DO Campbell Naranjo Work Phone: [facility] 12-01-2022 influenza, high dose seasonal, preservative-free Campbell Naranjo Other [facility] [employer] Other 12-19-2021 influenza virus vaccine, split virus (incl. purified surface antigen) Campbell Naranjo Other [facility] [employer] Other 12-19-2021 influenza virus vaccine, unspecified formulation DO Campbell Naranjo Work Phone: [facility] 12-10-2020 influenza virus vaccine, split virus (incl. purified surface antigen) Campbell Naranjo Other [facility] [employer] Other 12-10-2020 influenza virus vaccine, unspecified formulation DO Campbell Naranjo Work Phone: [facility] 01-09-2020 influenza virus vaccine, split virus (incl. purified surface antigen) Campbell Naranjo Other [facility] [employer] Other 01-09-2020 influenza virus vaccine, unspecified formulation DO Campbell Naranjo Work Phone: [facility] 01-14-2018 influenza virus vaccine, split virus (incl. purified surface antigen) Campbell Naranjo Other [employer] Other 01-14-2018 influenza virus vaccine, unspecified formulation DO Campbell [employer] Work Phone: [facility] 12-30-2016 influenza virus vaccine, split virus (incl. purified surface antigen) Campbell Naranjo Other [employer] Other 12-30-2016 influenza virus vaccine, unspecified formulation DO [employer] Work Phone: [facility] 03-16-2016 influenza virus vaccine, split virus (incl. purified surface antigen) Campbell Naranjo Other [employer] Other 03-16-2016 influenza virus vaccine, unspecified formulation DO [employer] Work Phone: [facility] 05-01-2015 pneumococcal conjuga te vaccine, 13 valent Campbell Naranjo Other [facility] 05-01-2015 pneumococcal Conjuga te, unspecified formulation; Translations: [Need for prophylactic vaccination against Streptococcus pneumoniae (pneumococcus)] Campbell Naranjo Other [facility] [employer] Other 12-28-2012 tetanus and diphther ia toxoids, adsorbed, preservative free, for adult use (5 Lf of tetanus toxoid and 2 Lf of diphtheria toxoid) Campbell Naranjo Other [facility] 01-28-2012 diphtheria, tetanus toxoids and acellular pertussis vaccine, unspecified formulation Campbell Naranjo Other [facility] 01-20-2012 pneumococcal polysaccharide vaccine, 23 valent Campbell Naranjo Other [facility] 05-18-2011 pneumococcal polysaccharide vaccine, 23 valent [employer] Naranjo Other [facility] Payers Date Payer Category Payer Self-pay 2016 Unknown [employer] [place] SUPPLEMENT [id number] 2016-Present [phone] [address] [place] [address] Indemnity [id number] 2003 Medicare MEDICARE MEDICAR E A AND B [id number] 2003-Present [phone] [place] [address] Medicare [id number] 1959 Medicare [id number] 1959 Medicare [id number] 1938 Unknown [id number] 3 1938 Unknown [id number] 3 1938 Unknown [id number] 3 1938 Unknown [id number] 3 1938 Unknown [id number] 3 1938 Unknown [id number] 3 1938 Unknown [id number] 3 1938 Unknown [id number] 3 Medicare Medicare Outpatient [id number] Unknown [facility]ly [facility] Insur [id number] Unknown [id number] 1 Unknown [id number] 1 Unknown [id number] 1 Unknown [id number] 1 Social History Date Type Detail Facility Start: 10-24-2009 End: 12-16-2021 Tobacco smoking status NHIS Ex-smoker [facility] End: 03-15-1971 History of tobacco use Current smoker [facility] End: 03-15-1971 History of tobacco use Cigarette Smoker [facility] Start: 10-24-2009 End: 07-28-2022 Cigarettes smoked current (pack per day) - Reported 1.5 [facility] Start: 11-07-2021 End: 12-16-2021 Alcohol intake Current drinker of alcohol (finding) [facility] Start: 1940 Sex Assigned At Not on file C [facility] Start: 10-28-2021 End: 01-08-2022 Exposure to SARS-CoV-2 (event) Not sure [facility] Start: 12-11-2021 End: 05-15-2023 Tobacco smoking status OHIS Never smoked tobacco (finding) [facility] Start: 1940 Sex Assigned At Male [facility] Start: 12-16-2021 Tobacco use and exposure Smokeless tobacco non-user [facility] Start: 12-16-2021 End: 07-28-2022 Sex Assigned At [facility] [employer] Other National Score (1-10 0), lower number is lower risk 61 [facility] Medical Equipment Procedure Code Equipment Code Equipment Origin al Text Equipment Identifier Dates [id number], [id number] Start: 10-23-2021 End: 08-04-2023 Comment on above: TEST HOME BLOOD SUGA R ONCE A DAY USE TO TEST HOME BLO OD SUGAR ONCE A DAY Clinical Notes 11-10-2021 to 08-04-2023 Leticia Milian, ASSET ANALYST.REROLLING MACHINE OPERATOR - 08/04/2023 8:58 AM EDT Note Date & Type Note Facility 08-04-2023 Note HNO ID: [id number] Author: LETICIA MILIAN APRN.ENIO Service: ? Author Type: Nurse Practitioner Type: Progress Notes Filed: 08/04/2023 09:23 Note Text: [facility] [address] [facility] [address] HISTORY OF PRESENT ILLNESS: Seen 02/02/23 for BPH w obs/luts, UTI Denies gross hematuria Denies any wt lost or pelvic pain Pt stated that notice occassionally sensation daily Pt wear a padding underwear and change daily rto Drink about 3 glasses of water ROSAMARIA 11/10/21 - 10 gm, rubbery, no nodules AUA=12 QOL 2 PVR=83 ML cysto 11-12-21 = 2.5 cm NON [...] BPH w obs/luts, UTI (new finding today 08/04/23) Pt is presently on manager long term care antibiotic due to infection in toes that went to bone Stated that urinary symptoms have resolved with treatment. PVR=36 ML UA 07/26/23=trace leuk esterase Culture 07/26/23=<10,000 CFU/ml Lactose positive gram negative bacilli Abnormal A1C 07/26/23=6.4 Location: BPH w obs/luts, UTI Pain Character: none Severity Scale: see AUA score, see lab Duration: BPH w obs/luts, UTI [facility] SYMPTOMS SCORE. 1. INCOMPLETE EMPTYING 1 2. FREQUENCY 0 3. INTERMITTENCY 3 4. URGENCY 0 5. WEAK STREAM 1 6. STRAINING 3 7. NOCTURIA 2 TOTAL SCORE 10 QOL 2 No past medical history on file. No past surgical history on file. No family history on file. Social History Tobacco Use Smoking status: Former Packs/day: 1.50 Years: 14.00 Additional pack years: 0.00 Total pack years: 21.00 Types: Cigarettes Quit date: 03/15/1971 Years since quittin.4 Smokeless tobacco: Never Substance Use Topics Alcohol use: Yes Comment: social MEDICATIONS: Current Outpatient Medications Medication Sig cephALEXin (KEFLEX) 500 mg capsule Take 1 capsule by mouth every 12 hours. tamsulosin (FLOMAX) 0.4 mg Take 1 capsule [...] [Ciprofloxaci* GI Upset Sulfa (Sulfonamide * Rash = REVIEW OF SYSTEMS = GENERAL: No fever, no fatigue and no [...] from the gums. PHYSICAL EXAM: VITALS: BP 130/56 Pulse 65 Wt 99.8 kg (220 lb) BMI 27.50 kg/m? GENERAL: Alert, oriented and in no [...] -BPH without obstruction on flomax -LIOR -DM -UTI TURP around 2018 outside Urology PLAN: (Management Options): AUA, PVR today Standing order for urin (more content not included)... [facility] 08-04-2023 History of Present illness Narrative Norberto Washington [address] [facility] [address] HISTORY OF PRESENT ILLNESS: Seen 02/02/23 for BPH w obs/luts, UTI Denies gross hematuria Denies any wt lost or pelvic pain Pt stated that notice occassionally sensation daily Pt wear a padding underwear and change daily rto Drink about 3 glasses of water ROSAMARIA 11/10/21 - 10 gm, rubbery, no nodules AUA=12 QOL 2 PVR=83 ML cysto 11-12-21 = 2.5 cm NON [...] BPH w obs/luts, UTI (new finding today 08/04/23) Pt is presently on manager long term care antibiotic due to infection in toes that went to bone Stated that urinary symptoms have resolved with treatment. PVR=36 ML UA 07/26/23=trace leuk esterase Culture 07/26/23=<10,000 CFU/ml Lactose positive gram negative bacilli Abnormal A1C 07/26/23=6.4 Location: BPH w obs/luts, UTI Pain Character: none Severity Scale: see AUA score, see lab Duration: BPH w obs/luts, UTI [facility] SYMPTOMS SCORE. 1. INCOMPLETE EMPTYING 1 2. FREQUENCY 0 3. INTERMITTENCY 3 4. URGENCY 0 5. WEAK STREAM 1 6. STRAINING 3 7. NOCTURIA 2 TOTAL SCORE 10 QOL 2 No past medical history on file. No past surgical history on file. No family history on file. Social History Tobacco Use Smoking status: Former Packs/day: 1.50 Years: 14.00 Additional pack years: 0.00 Total pack years: 21.00 Types: Cigarettes Quit date: 03/15/1971 Years since quittin.4 Smokeless tobacco: Never Substance Use Topics Alcohol use: Yes Comment: social MEDICATIONS: Current Outpatient Medications Medication Sig cephALEXin (KEFLEX) 500 mg capsule Take 1 capsule by mouth every 12 hours. tamsulosin (FLOMAX) 0.4 mg Take 1 capsule [...] [Ciprofloxaci* GI Upset Sulfa (Sulfonamide * Rash = REVIEW OF SYSTEMS = GENERAL: No fever, no fatigue and no [...] from the gums. PHYSICAL EXAM: VITALS: BP 130/56 Pulse 65 Wt 99.8 kg (220 lb) BMI 27.50 kg/m GENERAL: Alert, oriented and in no [...] -BPH without obstruction on flomax -LIOR -DM -UTI TURP around 2019 outside Urology PLAN: (Management Options): AUA, PVR today Standing order for urine place will get only if symptomatic Cont flomax Rto 6 months for evaluation of BPH w obs/luts, AUA, PVR Medical Decision Making: Problems: Moderate: 2+ stable chronic illnesses Data: Unique test result(s) reviewed: 3+ Risk: Low: Low risk from testing/treatment Medical Decision Making Level: 4 - Moderate Leticia Milian APRN.REROLLING MACHINE OPERATOR documented in this encounter [facility] 04-21-2023 Evaluation note Encounter Date Diagnosis Assessment [...] - recommend Picc line and IV antibiotics [employer] Other 01-03-2024 Evaluation note* Encounter Date Diagnosis [...] to restart Amlodipine. Continue PAUL for now. [employer] Other 12-12-2023 Evaluation note* Encounter Date Diagnosis [...] and inserts to prevent callus formation.Fall precautions. [employer] Other 12-08-2023 Evaluation note* Encounter Date Diagnosis [...] ulcers. Recommend routine foot care w/ Podiatry [employer] Other 11-21-2023 NoteHNO ID: [id number] Author: Leticia Milian APRN.[facility] Service: ? Author Type: Nurse Practitioner Type: Progress Notes Filed: 02/02/2023 2:13 PM Note Text: Norberto Washington [address] [place] [address] HISTORY OF PRESENT ILLNESS: Seen 07/28/22 for [...] see lab Duration: BPH w obs/luts, UTI [facility] SYMPTOMS SCORE. 1. INCOMPLETE EMPTYING [...] only if s (more content not included)... [facility]11-21-2023 Miscellaneous Notes* Addendum Note - Leticia Milian APRN.CNP - 02/02/2023 2:16 PM ESTAddended by: LETICIA MILIAN on: 02/02/2023 02:16 PM Modules accepted: Orders documented in [facility] History of Present illness Narrative* Leticia Milian APRN.CNP - 02/02/2023 1:40 PM EST Norberto Washington [address] [place] [address] HISTORY OF PRESENT ILLNESS: Seen 07/28/22 for [...] see lab Duration: BPH w obs/luts, UTI [facility] SYMPTOMS SCORE. 1. INCOMPLETE EMPTYING [...] Making Level: 4 - Moderate Leticia Milian APRN.REROLLING MACHINE OPERATOR documented in this encounterAv[facility] Evaluation note* Encounter Date Diagnosis Assessment [...] w/ acute infection Requires no additional treatment [employer] Other 07-06-2023 Evaluation note* Encounter Date Diagnosis [...] exercise for 30 minutes, 3-5 times weekly. [employer] Other 04-06-2023 Evaluation note* Encounter Date Diagnosis Assessment Notes [...] w/ antibiotics and treatment of urinary retention [employer] Other 03-21-2023 NotePROCEDURE: XR FOOT LT MIN [...] Electronically authenticated by: SAMY TORRES Date: 2022-06-02 15:48[facility]03-21-2023 NotePROCEDURE: XR FOOT LT MIN 3 [...] Electronically authenticated by: SAMY TORRES Date: 2022-06-02 15:48[facility]01-25-2023 Evaluation note* Encounter Date Diagnosis Assessment [...] lesion was treated w/ cryotherapy w/o complications [employer] Other 01-06-2023 Evaluation note* Encounter Date Diagnosis [...] Mar, Hesitancy of micturition (ICD-10 - R39.11) [employer] Other 10-27-2022 History of Present illness Narrative* Zuleika Hackett - 01/08/2022 8:20 AM EDT Norberto Washington [address] [address] Mr. Washington presents with chief complaints of: Enlarged L testicle. ED 11/07/21: PVR 179 cc, refused a catheter, scheduled to undergo a cystoscopy in [place] but was cancelled due to his [...] epididymitis Hydroceles: None Spermatoceles: None Varicoceles: None [facility] SYMPTOMS SCORE. Date 01/08/2022 1. [...] in the presence of Dr. Dugan. Fuad Bootheibdakota Provider Attestation: ILeonard M.D., personally performed the services described in this documentation. All medicalrecord entries made by the scribe were at my direction and in my presence. I have reviewed the chart and discharge instructions (if applicable) and agree that the record reflects my personal performance and is accurate and complete. Leonard Dugna M.D. documented in this encounterAv[facility] Hospital Discharge instructions Additional Instructions Continue taking Flomax as prescribed Avoid drinking any fluids several hours before bed Call your urologist tomorrow for a follow-up appointment Return if you are unable to urinate, develop blood in your urine, abdominal pain, [facility] Work Phone: [phone] History of Present illness Narrative* Leonard Dugan MD - 12/16/2021 2:51 PM EDT Norberto Washington [address] [facility] [address] HISTORY OF PRESENT ILLNESS: ED 11/07/21: PVR 179 cc, refused a catheter, scheduled to undergo a cystoscopy in [place] but was cancelled due to his [...] well resected prostate (had 2 TURP) in [place] PLAN: (Management Options): -Start Flomax one cap [...] Moderate Leonard Dugan MD documented in this encounterAv[facility] Miscellaneous Notes* Telephone Encounter - Valente Bell LPN - 12/15/2021 3:58 PM EDT Called and spoke to patient regarding message below. Patient states understanding to information provided. No further action required at this time. * Telephone Encounter - Leticia Milian APRN.REROLLING MACHINE OPERATOR - 12/15/2021 10:13 AM EDT Please call and confirm that pt received appweevr message to start new script sent for antibiotic. Thanks Leticia MONDRAGON documented in this encounterAv[facility]-2022 Miscellaneous Notes* Telephone Encounter - Valente [...] be draining normally now. documented in this encounterAvita [facility]09-28-2022 Nurse Note* Stephanie Kaur RN - [...] hyperplasia with urinary retention documented in this encounterAv[facility]09-27-[facility]22 History of Present illness Narrative* Leonard Dugan MD - 12/09/2021 5:05 PM EDT [facility] PHYSICIAN INTERPRETATION: [...] contractility Leonard Dugan MD documented in this encounterAvita [facility]09-27-2022 Nurse Note* Stephanie Kaur RN - 12/09/2021 3:57 PM EDT [facility] [...] of incomplete bladder emptying documented in this encounter[facility] Miscellaneous Notes* Telephone Encounter - Stephanie Kaur RN - 12/08/2021 4:11 PM EDT LM for patient to reschedule catheter change for tomorrow. Last changed 11/26/21 in ED. Will be due for change on 12/23/21. Stephanie Kaur R.N. documented in this encounterAv[facility]09-12-2022 Miscellaneous Notes* Telephone Encounter - Sonia [...] busy with his spouse at [facility] having to care for her needs and hadn't called earlier when it first started on Wednesday. He was hoping it would clear up but it has not, urine is between [place] tint & Brown and he does see small clots. Patient does have pain at the end of his Penis slight swelling noted (he has been applying Neosporin) Denies difficulty with urine draining into [place] bag, he does not have back pain Please advise documented in this encounterAvita [facility]08-31-2022 Nurse Note* Stephanie Kaur RN - [...] Education Session: None Instruction Provided To: Patient Roll Cutting Operator Present: not applicable Discipline: Nursing Learning [...] supervision. Stephanie Kaur RN documented in this encounterAvita [facility]08-31-2022 Procedure note* Leonard Dugan MD - 11/12/2021 11:00 AM EDTProcedure(s): CYSTOSCOPY Pre-Procedure Diagnose(s): BPH with obstruction/lower urinary tract symptoms Post-Procedure Diagnose(s): BPH with obstruction/lower urinary tract symptoms PROCEDURE: CYSTOSCOPY INDICATIONS: ED 11/07/21: PVR 179 cc, refused a catheter, scheduled to undergo a cystoscopy in [place] but was cancelled due to his [...] Dr. Dugan. Zuleika Hackett, Scribe Provider Attestation: ILeonard M.D., personally performed the services described in this documentation. All medicalrecord entries made by the scribe were at my direction and in my presence. I have reviewed the chart and discharge instructions (if applicable) and agree that the record reflects my personal performance and is accurate and complete. Leonard Dugan M.D. documented in this encounterAv[facility]08-29-2022 History of Present illness Narrative* Leonard Dugan MD - 11/10/2021 12:11 PM EDT Cysto with uroflow 11-12-21 ED 11/07/21: PVR 179 cc, refused a catheter, scheduled to undergo a cystoscopy in [place] but was cancelled due to his urologist was sick Pt underwent TURP x2 within a week AUA= 3-5 wach ROSAMARIA 11/10/21 - 10 gm, rubbery, no nodules US 11/07/21:= mildly complex renal cysts UA and culture 11-07-21= -ve May need UDS based on cysto documented in this encounterAv[facility] HospitalEvaluation note* Diagnosis BPH with obstruction/lower urinary tract symptoms- Primary Hypertrophy of prostate with urinary obstruction and other lower urinary tract symptoms (LUTS) Benign prostatic hyperplasia with urinary retention [facility]* Diagnosis Urinary frequency- Primary Urinary urgency Urgency of urination Urinary straining Straining on urination Feeling of incomplete bladder emptying Incomplete bladder emptying documented [facility] this encounter [facility]* Diagnosis Urinary tract infection without hematuria, site unspecified- Primary Feeling of incomplete bladder emptying Incomplete bladder emptying Benign prostatic hyperplasia with urinary retention documented in this encounter [facility] noteNo assessment information [facility] Work Phone: Evaluation note* Diagnosis Retention of urine- Primary Retention of urine, unspecified Flaccid bladder Neurogenic bladder, NOS documented in this encounter [place] note* Diagnosis Chronic epididymitis- Primary Left hydrocele Hydrocele, unspecified Weak urinary stream Slowing of urinary stream BPH without obstruction/lower urinary tract symptoms Hypertrophy of prostate without urinary obstruction and other lower urinary tract symptoms (LUTS) Epididymitis Orchitis and epididymitis, unspecified documented in this encounter [facility] noteNo InformationNoje[facility] [employer] Other Evaluation note* Diagnosis BPH with obstruction/lower urinary tract symptoms- Primary Hypertrophy of prostate with urinary obstruction and other lower urinary tract symptoms (LUTS) Recurrent UTI Urinary tract infection, site not specified Weak urinary stream Slowing of urinary stream documented in this encounter [facility]* Diagnosis Onset Date Resolution Status Chronic venous insufficiency of lower extremity acute Type 2 diabetes mellitus with hyperglycemia acute Chronic kidney disease acute Chronic venous insufficiency of lower extremity acute Elevated cholesterol acute HTN (hypertension) acute Type 2 diabetes mellitus with hyperglycemia [facility] Work Phone: Evaluation note* Diagnosis Onset Date Resolution Status Chronic venous insufficiency of lower extremity acute Type 2 diabetes mellitus with hyperglycemia acute Chronic kidney disease acute Chronic venous insufficiency of lower extremity acute Elevated cholesterol acute HTN (hypertension) acute Overweight acute Type 2 diabetes mellitus with hyperglycemia [facility] Work Phone: Evaluation note* Diagnosis Onset [...] acute Preop exam for internal medicine noneactive [facility] Work Phone: Evaluation note* Diagnosis Benign prostatic hyperplasia, unspecified whether lower urinary tract symptoms present- Primary Recurrent UTI Urinary tract infection, site not specified Nocturia documented in this encounter [facility] Narrative - Reported* Type [...] cystoscopy 09.20.2019 Hospitalization History see surgical history [employer] Other Reason for referral (narrative)* Outpatient Procedure (Routine) - Pending Review Specialty Diagnoses / Procedures Referred By Marce dillon Referred To Contact [facility] Diagnoses 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 Procedures URODYNAMICS MAGGY POST-VOIDING RESIDUAL URINE&/BLADDER CAP Leonard Dugan MD [address] [place] [address] [address] Referral ID Status Reason Start Date Expiration Date Visits Requested Visits Authorized [id number] Pending Review Auto-Generat ed Referral 11/12/2021 11/12/2022 1 1 [facility] Summary Purpose Family History No Family [...] with hyperglycemia Preop exam for internal medicine Chief Complaint Leg pain ER follow up Amb Documentation CHECK UP pre op clearance Unknown Unknown Reason for Visit Chronic venous insuf [...] toe of right foot (M20.41) Referral Organization [facility] Referring Provider First Name Campbell Referring Provider Last Name Quentin Referring Provider Specialty Internal Me zenaida Referred Organization [facility] Referred Provider Jhon Tejada Referred Address [address] [place], [place],[address] Referred Provider Specialty Podiatry - S urgical [...] section and content) DATE CREATED AUTHOR 11/04/2021 [facility] DATE CREATED AUTHOR AUTHOR'S ORGANIZ ATION 12/13/2021 [facility] DATE CREATED AUTHOR AUTHOR'S ORGANIZ ATION 06/25/2022 [facility] DATE CREATED AUTHOR AUTHOR'S ORGANIZ ATION 07/27/2023 [facility] DATE CREATED AUTHOR AUTHOR'S ORGANIZ ATION 08/06/2023 [facility] Source Comments (unrecognize d section and content) In the event this informatio n is protected by the Federal Confidentiality of Alcohol and Drug Abuse Patient Records regulations: The Federal rules restrict any use of the information to criminally investigate or prosecute any alcohol or drug abuse patient.[facility] HospitalIn the event this information is protected by the Federal Confidentiality of Alcohol and Drug Abuse Patient Records regulations: The Federal rules restrict any use of the information to criminally investigate or prosecute any alcohol or drug abuse patient.[facility] HospitalIn the event this information is protected by the Federal Confidentiality of Alcohol and Drug Abuse Patient Records regulations: The Federal rules restrict any use of the information to criminally investigate or prosecute any alcohol or drug abuse patient.[facility] HospitalIn the event this information is protected by the Federal Confidentiality of Alcohol and Drug Abuse Patient Records regulations: The Federal rules restrict any use of the information to criminally investigate or prosecute any alcohol or drug abuse patient.[facility] HospitalIn the event this information is protected by the Federal Confidentiality of Alcohol and Drug Abuse Patient Records regulations: The Federal rules restrict any use of the information to criminally investigate or prosecute any alcohol or drug abuse patient.[facility] HospitalIn the event this information is protected by the Federal Confidentiality of Alcohol and Drug Abuse Patient Records regulations: The Federal rules restrict any use of the information to criminally investigate or prosecute any alcohol or drug abuse patient.[facility] HospitalIn the event this information is protected by the Federal Confidentiality of Alcohol and Drug Abuse Patient Records regulations: The Federal rules restrict any use of the information to criminally investigate or prosecute any alcohol or drug abuse patient.[facility] HospitalIn the event this information is protected by the Federal Confidentiality of Alcohol and Drug Abuse Patient Records regulations: The Federal rules restrict any use of the information to criminally investigate or prosecute any alcohol or drug abuse patient.[facility] HospitalIn the event this information is protected by the Federal Confidentiality of Alcohol and Drug Abuse Patient Records regulations: The Federal rules restrict any use of the information to criminally investigate or prosecute any alcohol or drug abuse patient.[facility] HospitalIn the event this information is protected by the Federal Confidentiality of Alcohol and Drug Abuse Patient Records regulations: The Federal rules restrict any use of the information to criminally investigate or prosecute any alcohol or drug abuse patient.[facility] HospitalIn the event this information is protected by the Federal Confidentiality of Alcohol and Drug Abuse Patient Records regulations: The Federal rules restrict any use of the information to criminally investigate or prosecute any alcohol or drug abuse patient.[facility] HospitalIn the event this information is protected by the Federal Confidentiality of Alcohol and Drug Abuse Patient Records regulations: The Federal rules restrict any use of the information to criminally investigate or prosecute any alcohol or drug abuse patient.[facility] HospitalIn the event this information is protected by the Federal Confidentiality of Alcohol and Drug Abuse Patient Records regulations: The Federal rules restrict any use of the information to criminally investigate or prosecute any alcohol or drug abuse patient.[facility] Care Teams (unrecognized sec tion and [...] Low Carter , DO Emergency Provider Active Vice President & General Manager [employer] Relationship Specialty Start Date End Date Ran Houston Jr. PCP - General 10/10/09 Vice President & General Manager [employer] Relationship Specialty Start Date End Date Ran Houston Jr. PCP - General 10/10/09 Vice President & General Manager [employer] Relationship Specialty Start Date End Date Ran Houston Jr. PCP - General 10/10/09 Vice President & General Manager [employer] Relationship Specialty Start Date End Date Campbell Naranjo, DO [address] [id number] PCP - General Internal Medicine 11/26/21 Vice President & General Manager [employer] Relationship Specialty Start Date End Date Campbell Naranjo, DO [address] [place] [address] PCP - General Internal Medicine 11/26/21 Vice President & General Manager [employer] Relationship Specialty Start Date End Date Campbell Naranjo, DO [address] [id number] PCP - General Internal Medicine 11/26/21 Vice President & General Manager [employer] Relationship Specialty Start Date End Date Campbell Naranjo, DO [address] [place] [address] PCP - General Internal Medicine 11/26/21 Team Status: Inactive Member Role Status Dates Campbell Naranjo , Primary Care Provider Active Davis Cervantes MD Emergency Provider Active Vice President & General Manager [employer] Relationship Specialty Start Date End Date Campbell Naranjo [place], DO [address] [place] [address] PCP - General Internal Medicine 11/26/21 Team Status: Inactive Member Role Status Dates Campbell Naranjo DO Primary Care Provider Active Sam Simons , Emergency Provider Active Team Status: Inactive Member Role Status Dates Campbell Naranjo DO Primary Care Provider Active Sam Simons , Attending Provider Active Vice President & General Manager [employer] Relationship Specialty Start Date End Date Campbell Naranjo, DO [address] [place] [address] PCP - General Internal Medicine 11/26/21 Vice President & General Manager [employer] Relationship Specialty Start Date End Date Campbell Naranjo, DO [address] [place] [address] PCP - General Internal Medicine 11/26/21 Vice President & General Manager [employer] Relationship Specialty Start Date End Date Campbell Naranjo DO [address] [place] [address] PCP - General Internal Medicine 11/26/21 Team [...] July 12, 2023 End: July 12, 2023 Team Status: Active Member Role Status Dates Campbell Naranjo DO Primary Care Provider Active Start: July 22, 2023 Jhon Tejada DPM MS Attending Provider Active Start: July 22, 2023 Team Status: Inactive Member Role Status Dates Campbell Naranjo DO Primary Care Provider Active Start: July 22, 2023 End: July 22, 2023 Jhon Tejada DPM MS Attending Provider Active Start: July 22, 2023 End: July 22, 2023 Vice President & General Manager [employer] Relationship Specialty Start Date End Date QuentinCampbellDO [address] [place] [address] PCP - General Internal Medicine 11/26/21 Reason [...] ON THE PRIMARY CLINICAL RECORDS. [facility]. provides no warranty or guarantee of the accuracy or completeness of information in this document.
== END 2023-08-31 13:28 | disposition home or self-care (01) ==
LOC: WC 13:27
PROVIDERS: PCP Internal Medicine; Visit Provider Podiatrist Foot & Ankle Surgery
DX: T87.89 Other complications of amputation stump (principal)
CPT/HCPCS: G0463

== ENCOUNTER 2023-12-30 06:51 | Outpatient (OUT) | payer MEDICARE, SELFPAY ==
--- OUTSIDE RECORDS SUMMARY | 2023-12-30 06:56 | XMS_ITS | CCD ---
Author Organization [facility] Care Team Providers Care Regulatory Affairs Internship Name Role Phone Ran Lees Jr. Primary Care Provider Unava ilable RAN LEES JR Primary Care Unavailable KEELY GUTIERREZ Attending Unavailable CAMPBELL NARANJO Primary Care Unavailable Campbell Naranjo DO Primary Care Provider DO Campbell Naranjo Primary Care Provider [phone] MD Davis Cervantes Emergency Provider DO Sam Simons Emergency Provider DO Sam Simons Attending Provider [phone] Campbell Naranjo Unavailable DR CAMPBELL NARANJO Primary [...] Unavailable BALL, DR SHERMAN Primary Care Unavailable BALL, DR SHERMAN Admitting Unavailable BALL, DR SHERMAN Attending Unavailable BALL, DR SHERMAN Consulting Unavailable BALL, DR SHERMAN Primary Care Unavailable Cornell Baptiste Unavailable DO Campbell Naranjo Primary Care Provider Tupa, DO [place] Emergency Provider Campbell Naranjo DO Primary Care Provider DO Campbell Naranjo Primary Care Provider Tupa, DO [place] Emergency Provider CHRISTIAN Tejada Attending Provider Jhon Tejada Attending Unavailable Jhon Tejada Admitting Unavailable Campbell Naranjo Primary Care Unavailable Jhon Tejada Attending Unavailable Jhon Tejada Admitting Unavailable Campbell Naranjo Primary Care Unavailable Tupa, [place] Admitting Unavailable Campbell Naranjo Primary Care Unavailable Emma, [place] Attending Unavailable Tupa, [place] Attending Unavailable Tuzack, [place] Admitting Unavailable Quentin, Campbell Primary Care Unavailable Campbell Naranjo DO Primary Care Provider CAMPBELL NARANJO Primary Care Unavailable LETICIA MILIAN Referring Unavailable LETICIA MILIAN Attending Unavailable CAMPBELL NARANJO Primary Care Unavailable CAMPBELL NARANJO Referring Unavailable CAMPBELL NARANJO Primary Care Unavailable CAMPBELL NARANJO Primary Care Unavailable RUKHSANA, LETICIA Sanderson Referring Unavailable CAMPBELL NARANJO Primary Care Unavailable LETICIA MILIAN Attending Unavailable DO Campbell Nraanjo Primary Care Provider STERLING ZAMUDIO Attending Unavailable Sterling Zamudio Admitting Unavailable Sterling Zamudio Attending Unavailable Campbell Naranjo MD Primary Care Provider CAMPBELL NARANJO Primary Care Physician Sterling Zamudio Admitting Unavailable Sterling Zamudio Attending Unavailable Allergies Allergy Classification Reported Allergen(s) Allergy Type Date of Onset Reaction(s) Facility (20 sources) Ciprofloxacin; Translations: [CIPROFLOXACIN] Drug Allergy 08-01-19 10 GI Upset, hives, Weal (disorder) [facility] (20 sources) Sulfonamides (Antibiotic); Translations: [SULFA (SULFONAMIDE ANTIBIOTICS)] Propensity to adverse reactions 08-01-19 10 Rash, hives [facility] (2 sources) Ciprofloxacin; Translations: [Cipro] Drug Allergy [facility] (1 source) Sulfonamides (Antibiotic) Drug allergy (disorder) [facility] (1 source) Allergies Reconciled Propensity to adverse reactions Unknown Pinstant Karma Other (1 source) patient allergy list reviewed by nurse or physicia Propensity to adverse reactions 05-20-19 Comment:Done Pinstant Karma Other (1 source) Ciprofloxacin Drug Allergy 07-09-19 [facility] (1 source) Sulfonamides (Antibiotic) Drug allergy (disorder) 07-09-19 [facility] (2 sources) Sulfonamides (Antibiotic); Translations: [sulfa drugs] Propensity to adverse reactions (disorder) Weal (disorder) [facility] Repository Medications Current Medications Medication Drug Class(es) Dates Sig (Normalized) Sig (Original) amLODIPine 5 mg oral tablet (20 sources) Dihydropyridine Calcium Channel Radha Start: 08-04-2023 take 5 mg by mouth once daily Amlodipine Active 5 MG PO Daily August 04, 2023 11:01am Start: 05-31-2023 End: 08-04-2023 take 1 tablet by mouth once daily Amlodipine Discontinued 0 .ROUTE .COMPLEX May 31, 2023 5:07pm August 04, 2023 11:01am TAKE 1 TABLET BY MOUTH DAILY FOR 30 DAYS Start: 05-31-2023 End: 05-31-2023 take 5 mg by mouth once daily Amlodipine Discontinued 5 MG PO Daily May 31, 2023 12:00am May 31, 2023 5:07pm Start: 12-11-2021 amLODIPine (NO RVASC) 2.5 mg tablet Amlodipine Active 5 MG PO Daily December 11, 2021 12:00am 0 12/11/2021 Active Start: 12-11-2021 End: 05-08-2023 take 5 mg by mouth once daily Amlodipine Discontinued 5 MG PO Daily December 11, 2021 12:00am May 08, 2023 1:04pm Start: 05-25-2019 End: 05-21-2023 take 5 mg by mouth once daily Amlodipine Discontinued 5 MG PO Daily May 08, 2023 1:02pm May 21, 2023 12:03pm Comment on above: Amlodipine Active 5 MG PO Daily December 11, 2021 12:00am aspirin 81 mg oral tablet (20 sources) Platelet Aggregation Inhibitor, Nonsteroidal Anti-inflammatory Drug Start: 12-11-2021 take 81 mg by mouth once daily Aspirin Active 81 MG PO Daily December 11, 2021 12:00am aspirin 81 MG ch ewable tablet 1 (one) time each day at the same time Active Comment on above: Aspirin Active 81 [...] 11-12-2021 cephALEXin 500 mg cap(s) (KE FLEX) Start: 10-28-2021 take 1 capsule by mo uth once daily Keflex 500 mg Cap 500 mg = 1 cap(s), Oral, Daily, Take 1 capsule the day before the procedure and 1 capsule after the procedure, # 2 cap(s), Refills(s) 0, Pharmacy: [facility]/pharmacy #[id number], 192, cm, 12/14/19 10:22:00 EDT, Height/Length Dosing, 104, kg, 12/14/19 10:22:00 EDT, Weight Dosing Start Date: 10/28/21 Status: Ordered Comment on above: Take 1 capsule by mo [facility] twice daily. Take 1 capsule by mo [facility] three times daily for 3 days. Start evening prior procedure diclofenac 18 mg oral capsule (19 sources) Nonsteroidal Anti-inflammatory Drug take 1 capsule by mouth three times daily doxycycline hyclate 100 mg oral capsule (3 sources) Tetracycline-class Drug Start: 2 doxycycline hyclate (VIBRAMYCIN) 100 mg capsule econazole nitrate 10 mg/ml topical cream (19 sources) Azole Antifungal gabapentin 300 mg oral capsule (20 sources) Anti-epileptic Agent Start: 05-25-2019 End: 08-04-2023 take 300 mg by mouth three times daily Gabapentin Active 300 MG PO Three times daily 270 90 August 04, 2023 11:00am Start: 07-31-2009 End: 08-04-2023 gabapentin (Neurontin) 300 M G capsule 1 capsule 1 (one) time each day at the same time 08/04/2023 Active Gabapentin 300 M G 1 capsule bid and 2 q HS Orally tid Active Comment on above: Take one(1) tablet t wo(2) times daily. glipiZIDE er 2.5 mg 24 hr extended release oral tablet (20 sources) Sulfonylurea Start: 12-11-2021 End: 08-04-2023 glipiZIDE XL (Glucotrol XL) 2.5 MG 24 hr tablet 1 (one) time each day at the same time 08/04/2023 Active Start: 01-09-2010 take 1 mg by mouth once daily glipiZIDE 5 mg Tab mg tab(s), Oral, Daily, Refills(s) 0 Start Date: 05/25/19 Status: Ordered Start: 01-09-2010 take 2.5 mg by mouth once torsten y glipiZIDE 5 mg ORAL tablet Take 2.5 mg by mouth once daily. 0 01/09/2010 Active take 1 tablet by [facility] every twenty-four hours glipiZIDE XL 5 MG 1 tablet Orally Once a day Active Comment on above: Take one(1) tablet d aily. Take 2.5 mg by mouth once daily. glucosamine 500 mg oral tablet (20 sources) Start: 05-21-2023 take 500 mg by [...] (20 sources) Angiotensin Converting Enzyme Inhibitor Start: 09-05-2023 Lisinopril Active 0 .ROUTE .COMPLEX 90 September 05, 2023 8:20am TAKE 1 TABLET DAILY Start: 05-21-2023 End: 09-05-2023 lisinopril 20 MG tablet 1 (o ne) time each day at the same time 09/05/2023 Active Start: 12-11-2021 End: 05-21-2023 take 10 mg by mouth once daily Lisinopril Discontinued 10 MG PO Daily December 11, 2021 12:00am May 21, 2023 12:03pm Start: 07-31-2009 take 1 mg by mouth once daily lisinopril 10 mg Tab mg tab(s), Oral, Daily, Refills(s) 0 Start Date: 05/25/19 Status: Ordered Lisinopril 20 MG TAKE 1 TABLET DAILY Active Comment on above: Take one(1) tablet d aily. lovastatin 40 mg oral tablet (20 sources) HMG-CoA Reductase Inhibitor Start : 05-24 End: 06-16 lovastatin (Mevacor) 40 MG tablet 1 (one) time each day at the same time 06/17/2023 Active Comment on above: Lovastatin Active 40 MG PO Daily December 11, 2021 12:00am methylsulfonylmethane 1000 mg oral tablet (6 sources) Start : 05-20 take 1 capsule by mouth twice daily Methylsulfonylmethane (Msm) 1,000 mg capsule Active 1000 MG PO Twice daily May 21, 2023 1:00am MSM 1500 MG (19 sources) MSM 1500 MG as d irected Orally Active Multi For Him - (4 sources) Multi For Him - as directed Orally Active Multivitamin (Daily Multi-Vitamin) tablet (6 sources) Start: 05-21-19 take 1 tablet by [...] oral capsule (20 sources) alpha-Adrenergic Radha Start: 10-12-19 Tamsulosin Active 0 .ROUTE .COMPLEX 180 October 12, 2023 8:41am TAKE 1 CAPSULE TWICE DAILY Start: 12-17-2021 End: 06-23-2023 take 0.4 mg by mouth twice daily Tamsulosin Discontinued 0.4 MG PO Twice daily 180 90 June 17, 2023 12:04pm June 23, 2023 9:54am Start: 11-14-2019 End: 01-28-2024 tamsulosin (Flomax) 0.4 MG 2 4 hr capsule 1 capsule 1 (one) time each day at the same time 10/12/2023 Active Comment on above: Take 1 capsule by [facility] once daily. Take one cap. daily Turmeric Root-Yulisa Root Ext (6 sources) Start: 05-21-2023 Turmeric Root-Yulisa Root Ext [...] mg / clavulanate 125 mg oral tablet (12 sources) Penicillin-class Antibacterial Start: 05-15-2023 End: 05-21-2023 [...] at bedtime. trimethoprim 100 mg oral tablet (11 sources) Dihydrofolate Reductase Inhibitor Antibacterial Start: 12-15-2021 [...] depolarization] Onset: 06-23-2016 Chronic Chronic kidney disease (17 sources) Chronic kidney disease stage 3; Translations: [Chronic kidney disease, stage 3 unspecified] Onset: 08-23-2014 06-20-2023 Chronic Chronic ulcer of skin (15 sources) Ulcer of foot; Translations: [Non-pressure chronic ulcer of other part of unspecified foot with unspecified severity] Onset: 10-02-2009 10-02-2009 Chronic Complication of device; implant or graft (10 sources) Disorder of urethral catheter; Translations: [Breakdown [...] 09-25-2019 07-31-2009 Chronic Diabetes mellitus without complication (2 sources) Type 2 diabetes mellitus without complication; Translations: [Diabetes mellitus without mention of complication, type II or unspecified type, not stated as uncontrolled] 05-25-2019 Chronic Disorders of lipid metabolism (20 sources) Pure hypercholesterolemia; Translations: [Familial hypercholesterolemia] Onset: [birth year]-1959 Chronic Essential hypertension (20 sources) Hypertensive disorder; Translations: [Essential (primary) hypertension] Chronic Fluid and electrolyte disorders (1 source) Hypo-osmolality and hyponatremia; Translations: [Hyponatremia] Onset: 11-07-2021 Episodic Genitourinary symptoms and ill-defined conditions (2 sources) Post-micturition incontinence ; Translations: [Urinary incontinence] 05-25-2019 Chronic Genitourinary symptoms and ill-defined conditions (20 sources) [...] caused by tuberculosis or sexually transmitted disease) (8 sources) Osteomyelitis of right foot; Translations: [Osteomyelitis, unspecified] Onset: 03-15-2023 07-07-2023 Chronic Inflammation; infection of eye (except that caused by tuberculosis or sexually transmitteddisease) (3 sources) 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; Translations: [Unspecified blepharitis right eye, upper and lower eyelids] Onset: 12-17-2023 12-17-2023 Episodic Inflammatory conditions of male genital organs (5 sources) Chronic epididymitis; Translations: [Epididymitis] Resolved: 08-28-2019 Episodic Occlusion or stenosis of precerebral arteries (3 sources) Left carotid artery stenosis; Translations: [Occlusion and stenosis of left carotid artery] Chronic Osteoarthritis (20 sources) Osteoarthritis of right knee joint; Translations: [Unilateral primary osteoarthritis, right knee] Chronic Other aftercare (4 sources) H/O: high risk medication; Translations: [Other skilled nursing (current) drug therapy] Episodic Other aftercare (1 [...] Episodic Other diseases of veins and lymphatics (6 sources) Venous insufficiency of leg; Translations: [Venous insufficiency (chronic) (peripheral)] 05-20-2023 Episodic Other diseases of veins and lymphatics (6 sources) Stasis dermatitis; Translations: [Venous insufficiency (chronic) (peripheral)] 05-21-2023 Episodic Other diseases of veins and lymphatics (13 sources) Venous insufficiency (chronic) (peripheral); Translations: [Venous (peripheral) insufficiency, unspecified] 05-21-2023 Episodic Other eye disorders (3 sources) Optic atrophy; 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] Onset: 12-17-2023 12-17-2023 Chronic Other eye disorders (3 sources) Dry eyes; Translations: [Dry eye syndrome of bilateral lacrimal glands] Onset: 12-17-2023 12-17-2023 Episodic Other injuries and conditions due to [...] Chronic Other nutritional; endocrine; and metabolic disorders (6 sources) Overweight; Translations: [Overweight] Episodic Other nutritional; endocrine; and metabolic disorders (6 sources) Overweight; Translations: [Overweight] Onset: 10-20-2021 06-23-2023 Episodic Other skin disorders (5 sources) Actinic keratosis; Translations: [Actinic keratosis] Episodic Other skin disorders (1 source) Callosity; Translations: [Corns and callosities] Episodic Other skin disorders (2 sources) Corns and callosities Episodic Retinal detachments; defects; vascular occlusion; and retinopathy (3 sources) Nonexudative age-related macular degeneration; Translations: [Nonexudative age-related macular degeneration, bilateral, intermediate dry stage] Onset: 12-17-2023 12-17-2023 Chronic Retinal detachments; defects; vascular occlusion; and retinopathy (1 source) Serous retinal detachment; Translations: [Serous retinal detachment, unspecified eye] Episodic Skin and subcutaneous tissue infections (12 sources) Cellulitis of toe of left foot; [...] (current) use of other medications] Onset: 03-23-2016 Unclassified (1 source) Drug therapy finding 11-14-2019 Urinary tract infections (4 sources) Acute cystitis [...] skilled nursing (current) drug therapy; Translations: [OTH [facility] CURRENT DRUG THERAPY] Onset: 10-22-2021 Episodic Other [...] Test Name Value Interpretation Reference Range Facility CHEMISTRYOrdered By: SYSTEM SYSTEM on 12-17-2023 CRP [Mass/Vol] 0.2 mg/dL Normal <=1.9mg/dL Remisol em CRPon 12-17-2023 CRP [Mass/Vol] 0.2 mg/dL Normal <=1.[address] [facility] Comment on above: Performed By: #### 2 [id number] #### [facility] [address] [place], [place] [id number] [place] [address] PLATELET COUNTon 2023 Platelets (Bld) [#/Vol] 239.0 10*3/uL [facility] Original Ordering Provider: DO Sterling Zamudio [facility] HEMATOLOGYOrdered By: Nat Aldridge on 12-17-2023 ESR (Bld) [Velocity] 4 mm/h Normal 0 - 19 mm/hr [facility] HemeAutoSS HEMATOLOGYOrdered By: SYSTEM SYSTEM on 12-17-2023 Platelet 239.0 E9/L Normal 150.0 - 500.0 E9/L Remisol Heme Ophthalmic OCT panelon 12-16 [facility] Right Eye Images reviewed and comparison made to baseline, Images reviewed. To assess optic nerve function and for use in future follow-up. Reliability: good and adequate. Left Eye Images reviewed and comparison made to baseline, Images reviewed. To assess optic nerve function and for use in future follow-up. Reliability: good and adequate. 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 [facility] Radiology Study observation (narrative) [facility] Optical coherence tomography study reporton 12-17-2023 [facility] Radiology Study observation (narrative) [facility] Platelet Counton 12-17-2023 Platelet 239.0 E9/L Normal 150.0-500.0 [facility] Comment on above: Performed By: #### 2 [id number] #### [facility] [address] [place] [address] Sed Rate Automatedon 024 ESR (Bld) [Velocity] 4 mm/h Normal 0-19 [facility] Comment on above: Performed By: #### 1 [id number] #### [facility] [address] [place] [address] CNOVon 08-04-2023 CNOV Office Visit (UROLLN) -------- NORBERTO WASHINGTON ([id number]) 1940 M Date Time Provider Department 08/04/23 9:00 AM LETICIA MILIAN During your visit today, we recorded the following information about you: Pulse Blood pressure Weight 65/minute 130/56 99.8 kg Leticia Milian, [employer] ACTOR.[facility] 08/04/2023 9:23 AM Signed Norberto Washington [address] [facility] [address] HISTORY OF PRESENT ILLNESS: Seen 02/02/23 for [...] finding today 08/04/23) Pt is presently on skilled nursing antibiotic due to infection in toes that went to bone Stated that urinary symptoms have resolved with treatment. PVR=36 ML UA 07/26/23=trace leuk esterase Culture 07/26/23=<10,000 CFU/ml Lactose positive gram negative bacilli Abnormal A1C 07/26/23=6.4 Location: BPH w obs/luts, UTI Pain Character: none Severity Scale: see AUA score, see lab Duration: BPH w obs/luts, UTI [facility] SYMPTOMS SCORE. 1. INCOMPLETE EMPTYING [...] Take 2.5 mg by mouth once daily. gabapentin(NEURONT IN 300 MG CAP) Take one(1) tablet two(2) times daily. lisinopril(PRINIVI L 10 MG TAB) Take one(1) tablet daily. [...] BLOOD SUGAR ONCE A DAY No current facility-administe red medications for this visit. ALLERGY: ALLERGIES Allergen [...] (Diagnostic Possibilitie (more content not included)... Normal [facility] Bacteria Ur Culton Bacteria identified Cx Nom (U) ORGANISM ID: 1 <10,000 CFU/ml Lactose positive gram negative bacilli Insignificant colony count. No further workup. Normal [facility] Comment on above: Performed By: #### 6 30-4 #### [facility] CLIA [id number] [address] [place] [address] [place] Glucose mean value [Mass/vol ume] in Blood Estimated from glycated hemoglobinon 07-26-2023 Average glucose Estimated from glycated hemoglobin (Bld) [Mass/Vol] 137 mg/dL [facility] Comment on above: eAG: (Estimated aver age glucose) is a calculated value from HgbA1c and is telephone service representative of the average blood glucose level in the last 2-3 month period. HbA1c (Bld)on 07-26-2023 Average glucose Estimated from glycated hemoglobin (Bld) [Mass/Vol] 137 mg/dL Normal [facility] Comment on above: Order Comment: Speci men Type: BLOOD SPECIMEN Ordering Facility: Dr Naranjo and Dr Baptiste Office Address: [address] [place] [address] Result Comment: eAG: (Estimated average glucose) is a calculated value from HgbA1c and is telephone service representative of the average blood glucose level in the last 2-3 month period. Performed By: #### 5 5454-3 #### [facility] CLIA [id number] [address] [place] [address] [place] HbA1c (Bld) [Mass fraction] 6.4 % High 4.3-5.6 [facility] Comment on above: Order Comment: Speci men Type: BLOOD SPECIMEN Ordering Facility: Dr Naranjo and Dr Baptiste Office Address: [address] [place] [address] Result Comment: [place] Diabetes Association guidelines indicate that patients with HgbA1c in the range 5.7-6.4% are at increased risk for development of diabetes, and intervention by lifestyle modification may be beneficial. HgbA1c greater or equal to 6.5% is considered diagnostic of diabetes. Performed By: #### 5 5454-3 #### [facility] CLIA [id number] [address] [place] [address] [place] Laboratory - Hematology and Cell countson 07-26-2023 HbA1c (Bld) [Mass fraction] 6.4 % High 4.3-5.6 [facility] Comment on above: [place] Diabetes As sociation guidelines indicate that patients with HgbA1c in the range 5.7-6.4% are at increased risk for development of diabetes, and intervention by lifestyle modification may be beneficial. HgbA1c greater or equal to 6.5% is considered diagnostic of diabetes. UrinalysisOrdered By: Leticia Milian on 07-26-2023 Urinalysis complete panel (U) [facility] Urinalysis complete panel (U )on 07-26-2023 Bacteria LM.HPF (Urine sed) [#/Area] Negative Normal Negative [facility] Comment on above: Order Comment: Speci men Type: URINE SPECIMEN Ordering Facility: [facility] Address: [address] [place] [address] Performed By: #### 2 4356-8 #### [facility] CLIA [id number] [address] [place] [address] [place] Bilirubin Ql (U) Negative Normal Negative [facility] Comment on above: Order Comment: Speci men Type: URINE SPECIMEN Ordering Facility: [facility] Address: [address] [place] [address] Performed By: #### 2 4356-8 #### [facility] CLIA [id number] [address] [place] [address] [place] Clarity (Unsp spec) Clear Normal Clear [facility] Comment on above: Order Comment: Speci men Type: URINE SPECIMEN Ordering Facility: [facility] Address: [address] [place] [address] Performed By: #### 2 4356-8 #### [facility] CLIA [id number] [address] [place] [address] [place] [facility] Color (U) Yellow Normal Yellow [facility] Comment on above: Order Comment: Speci men Type: URINE SPECIMEN Ordering Facility: [facility] Address: [address] [place] [address] Performed By: #### 2 4356-8 #### [facility] CLIA [id number] [address] [place] [address] [place] Epithelial cells LM.HPF (Urine sed) [#/Area] None Seen Normal [facility] Comment on above: Order Comment: Speci men Type: URINE SPECIMEN Ordering Facility: [facility] Address: [address] [place], [place] [address] Performed By: #### 2 4356-8 #### [facility] CLIA [id number] [address] [place] [address] [place] Glucose Test strip (U) [Mass/Vol] Negative Normal Negative [facility] Comment on above: Order Comment: Speci men Type: URINE SPECIMEN Ordering Facility: [facility] Address: [address] [place] [address] Performed By: #### 2 4356-8 #### [facility] CLIA [id number] [address] [place] [address] [place] Hemoglobin Ql (U) Negative Normal Negative [facility] Comment on above: Order Comment: Speci men Type: URINE SPECIMEN Ordering Facility: [facility] Address: [address] [place] [address] Performed By: #### 2 4356-8 #### [facility] CLIA [id number] [address] [place] [address] [place] Hyaline casts (Urine sed) [#/Area] 1-3 /LPF Abnormal 0 /LPF [facility] Comment on above: Order Comment: Speci men Type: URINE SPECIMEN Ordering Facility: [facility] Address: [address] [place] [address] Performed By: #### 2 4356-8 #### [facility] CLIA [id number] [address] [place] [address] [place] Ketones Ql (U) Negative Normal Negative [facility] Comment on above: Order Comment: Speci men Type: URINE SPECIMEN Ordering Facility: [facility] Address: [address] [place] [address] Performed By: #### 2 4356-8 #### [facility] CLIA [id number] [address] [place] [address] [place] Leukocyte esterase Test strip Ql (U) Trace Abnormal Negative [facility] Comment on above: Order Comment: Speci men Type: URINE SPECIMEN Ordering Facility: [facility] Address: [address] [place] [address] Performed By: #### 2 4356-8 #### [facility] CLIA [id number] [address] [place] [address] [place] Nitrite Ql (U) Negative Normal Negative [facility] Comment on above: Order Comment: Speci men Type: URINE SPECIMEN Ordering Facility: [facility] Address: [address] [place] [address] Performed By: #### 2 4356-8 #### [facility] CLIA [id number] [address] [place] [address] [place] pH (U) 6.0 [pH] Normal <8.5 [facility] Comment on above: Order Comment: Speci men Type: URINE SPECIMEN Ordering Facility: [facility] Address: [address] [place] [address] Performed By: #### 2 4356-8 #### [facility] CLIA [id number] [address] [place] [address] [place] Protein (U) [Mass/Vol] Negative Normal Negative [facility] Comment on above: Order Comment: Speci men Type: URINE SPECIMEN Ordering Facility: [facility] Address: [address] [place] [address] Performed By: #### 2 4356-8 #### [facility] CLIA [id number] [address] [place] [address] [place] RBC LM.HPF (Urine sed) [#/Area] 0-2 /HPF Normal 0-2 /HPF [facility] Comment on above: Order Comment: Speci men Type: URINE SPECIMEN Ordering Facility: [facility] Address: [address] [place] [address] Performed By: #### 2 4356-8 #### [facility] CLIA [id number] [address] [place] [address] [place] Specific gravity (U) [Rel density] 1.016 Normal 1.005-1.030 [facility] Comment on above: Order Comment: Speci men Type: URINE SPECIMEN Ordering Facility: [facility] Address: [address] [place] [address] Performed By: #### 2 4356-8 #### [facility] CLIA [id number] [address] [place] [address] [place] Urobilinogen Ql (U) 0.2 EU/dL Normal 0.2-1.0 EU/dL Cl [facility] Comment on above: Order Comment: Speci men Type: URINE SPECIMEN Ordering Facility: [facility] Address: [address] [place] [address] Performed By: #### 2 4356-8 #### [facility] CLIA [id number] [address] [place] [address] [place] WBC LM.HPF (Urine sed) [#/Area] 0-5 /HPF Normal 0-5 /HPF [facility] Comment on above: Order Comment: Speci men Type: URINE SPECIMEN Ordering Facility: [facility] Address: [address] [place] [address] Performed By: #### 2 4356-8 #### [facility] CLIA [id number] [address] [place] [address] [place] Urine culture routineOrdered By: Leticia Milian on 07-26-2023 Bacteria identified Cx Nom (U) [facility] Basophils Auto (Bld) [#/Vol] on 07-22-2023 Basophils (Bld) [#/Vol] 0.0 10 3/uL 0.0-0.1 [facility] Basophils/100 WBC Auto (Bld) on 07-22-2023 Basophils/100 WBC (Bld) 0.5 % 0.2-2.0 [facility] Eosinophils/100 WBC Auto (Bl d)on 07-22-2023 Eosinophils/100 WBC (Bld) 2.7 % 0.9-7.0 [facility] Erythrocyte distribution wid th Auto (RBC) [Ratio]on 07-22-2023 Erythrocyte distribution width (RBC) [Ratio] 12.2 % 11.0-15.0 [facility] Estimated glomerular filtrat ion rate (GFR) non- Americanon 07-22-2023 GFR/1.73 sq M.predicted among non-blacks MDRD (S/P/Bld) [Vol rate/Area] 49 mL/min/{1.73_m2} Low >=60 [facility] Hematocrit Auto (Bld) [Volum e fraction]on 07-22-2023 Hematocrit (Bld) [Volume fraction] 37.8 % Low 42.0-54.0 [facility] Hemoglobin [Mass/volume] in Bloodon 07-22-2023 Hemoglobin (Bld) [Mass/Vol] 12.6 g/dL Low 14.0-18.0 [facility] Yuri 07-22-2023 L Specimen: [id number] Received: 07/22/23 Status: YOAVSho Najera Num: [id number] Spec Type: Surgical Subm Dr: Jhon Tejada DPM, MS Tissues: A DIGIT AMPUTATION (DISTAL RT FOURTH TOE) Procedures: HE/2, Gross/Micro L4, Decalcification Age/ Patient Sex Location Account Attending Physician SinNorberto 83/M LABELL [id number] Jhon Tejada DPM, MS SPEC NUM: [id number] RECD: 07/22/23 STATUS: MARY WESLY NUM: [id number] CAITY: 07/22/[address]: Jhon Tejada DPM, MS ENTERED: 07/22/[address] [facility] [address]: Chaim Barron SPEC TYPE: Surgical DEPT: GILBERTO ABEBE ORDERED: [...] history: Disruption of surgical wound CPT Codes 98858 -- -- Specimen: [id number] Received: 07/22/23 Status: MARY Najera Num: [id number] Spec Type: Surgical Subm Dr: Jhon Tejada,CHRISTIAN, MS Tissues: A DIGIT AMPUTATION (DISTAL RT FOURTH TOE) Procedures: HE/2, Gross/Micro L4, Decalcification -- Patient: Norberto Washington [id number] (Continued) -- Signed (signatu re on file) Gin Talley MD 07/26/23 5895 Normal [facility] Laboratory - Chemistry and C hemistry - challengeon 07-22-2023 Calcium [Mass/Vol] 9.0 mg/dL 8.5-10.1 [facility] Chloride [Moles/Vol] 98 mmol/L 98-107 [facility] CO2 [Moles/Vol] 27.0 mmol/L 21.0-32.0 [facility] Creatinine [Mass/Vol] 1.39 mg/dL High 0.70-1.30 [facility] GFR/1.73 sq M.predicted MDRD (S/P/Bld) [Vol rate/Area] 59 mL/min/{1.73_m2} Low >=60 [facility] Glucose [Mass/Vol] 120 mg/dL High 74-106 [facility] Potassium [Moles/Vol] 4.9 mmol/L 3.5-5.1 [facility] Sodium [Moles/Vol] 135 mmol/L Low 136-145 [facility] Urea nitrogen [Mass/Vol] 23.0 mg/dL High 7.0-18.0 [facility] Urea nitrogen/Creatinine [Mass ratio] 16.5 mg/mg [facility] Laboratory - Hematology and Cell countson 07-22-2023 Immature granulocytes/100 WBC (Bld) 0.5 % 0.0-0.5 [facility] Leukocytes [#/volume] correc marshal for nucleated erythrocytes in Blood by Automated counon 07-22-2023 WBC corrected for nucl RBC Auto (Bld) [#/Vol] 8.1 10 3/uL 4.0-11.0 [facility] Lymphocytes Auto (Bld) [#/Vo l]on 07-22-2023 Lymphocytes (Bld) [#/Vol] 2.3 10 3/uL 1.2-3.8 [facility] Lymphocytes/100 WBC Auto (Bl d)on 07-22-2023 Lymphocytes/100 WBC (Bld) 28.3 % 20.5-60.0 [facility] MCH Auto (RBC) [Entitic mass ]on 07-22-2023 MCH (RBC) [Entitic mass] 30.7 pg 25.9-34.0 [facility] MCHC Auto (RBC) [Mass/Vol]on 07-22-2023 MCHC (RBC) [Mass/Vol] 33.3 g/dL 29.9-35.2 [facility] MCV Auto (RBC) [Entitic vol] on 07-22-2023 MCV (RBC) [Entitic vol] 92.0 fL 80.0-94.0 [facility] Monocytes Auto (Bld) [#/Vol] on 07-22-2023 Monocytes (Bld) [#/Vol] 1.1 10 3/uL High 0.3-0.8 [facility] Monocytes/100 WBC Auto (Bld) on 07-22-2023 Monocytes/100 WBC (Bld) 13.7 % High 1.7-12.0 [facility] Neutrophils Auto (Bld) [#/Vo l]on 07-22-2023 Neutrophils (Bld) [#/Vol] 4.4 10 3/uL 1.4-6.5 [facility] Neutrophils/100 WBC Auto (Bl d)on 07-22-2023 Neutrophils/100 WBC (Bld) 54.3 % 43.0-75.0 [facility] No Panel Informationon 07-21 Eosinophils # (Auto) 0.2 10 3/uL 0.0-0.7 [facility] Immature Granulocyte # (Auto) 0.04 10 3/uL High 0.00-0.03 [facility] Platelet mean volume Auto (B ld) [Entitic vol]on 07-22-2023 Platelet mean volume (Bld) [Entitic vol] 8.2 fL Low 9.5-13.5 [facility] Platelets Auto (Bld) [#/Vol] on 07-22-2023 Platelets (Bld) [#/Vol] 268 10 3/uL 150-450 [facility] RBC Auto (Bld) [#/Vol]on RBC (Bld) [#/Vol] 4.11 10 6/uL Low 4.70-6.10 [facility] Serum or plasma anion gap de terminationon 07-22-2023 Anion gap [Moles/Vol] 14.9 mmol/L [facility] Yuri 07-12-2023 L Specimen: [id number] Received: 07/12/23-1 Status: SOUT Req Num: [id number] Spec Type: Surgical Subm Dr: Jhon Tejada,DPM, MS Tissues: A DIGIT AMPUTATION (LT FOURTH TOE) B DIGIT AMPUTATION (RT FOURTH TOE) Procedures: HE/4, Gross/Micro L4/2, Decalcification/2 Age/ Patient Sex Location Account Attending Physician Norberto Washington 83/M LABELL [id number] Jhon Tejada DPM, MS SPEC NUM: [id number] RECD: 07/12/23 STATUS: SOUSho REQ NUM: [id number] CAITY: 07/12/23-[address]: Jhon Tejada DPM, MS ENTERED: 07/12/[address] [facility] [address]: Anderson,Lab SPEC TYPE: Surgical DEPT: GILBERTO [...] the fourth digit. The skin surface is -- Specimen: [id number] Received: 07/12/23 Status: MARY Najera Num: [id number] Spec Type: Surgical Subm Dr: Jhon Tejada,DPM, MS Tissues: A DIGIT AMPUTATION (LT FOURTH TOE) B DIGIT AMPUTATION (RT FOURTH TOE) Procedures: HE/4, Gross/Micro L4/2, Decalcification/2 -- Patient: Norberto Washington [id number] (Continued) -- Specimen: [id number] Received: 07/12/23 (Continued) Gross Description (Continued) Signed (signatu re on file) Yisel Kaminski MD 07/13/23 192 -- Specimen: [id number] Received: 07/12/23 Status: MARY Najera Num: [id number] Spec Type: Surgical Subm Dr: Jhon Tejada,CHRISTIAN, MS Tissues: A DIGIT AMPUTATION (LT FOURTH TOE) B DIGIT AMPUTATION (RT FOURTH TOE) Procedures: HE/4, Gross/Micro L4/2, Decalcification/2 -- Patient: Norberto Washington [id number] (Continued) -- Specimen: [id number] Received: 07/12/23 (Continued) Gross Description (Continued) 90% [...] foot, osteomyelitis right foot TW CPT Codes 64457 X2 95465 X2 -- -- Specimen: [id number] Received: 07/12/23 Status: MARY Najera Num: [id number] Spec Type: Surgical Subm Dr: Jhon Tejada,DPM, MS Tissues: A DIGIT AMPUTATION (LT FOURTH TOE) B DIGIT AMPUTATION (RT FOURTH TOE) Procedures: HE/4, Gross/Micro L4/2, Decalcification/2 -- Patient: SinNorberto Nadine [id number] (Continued) -- Signed (signatu re on f (more content not included)... Normal [facility] Basophils Auto (Bld) [#/Vol] on 07-06-2023 Basophils (Bld) [#/Vol] 0.0 10 3/uL 0.0-0.1 [facility] Basophils/100 WBC Auto (Bld) on 07-06-2023 Basophils/100 WBC (Bld) 0.4 % 0.2-2.0 [facility] Eosinophils/100 WBC Auto (Bl d)on 07-06-2023 Eosinophils/100 WBC (Bld) 2.3 % 0.9-7.0 [facility] Erythrocyte distribution wid th Auto (RBC) [Ratio]on 07-06-2023 Erythrocyte distribution width (RBC) [Ratio] 12.4 % 11.0-15.0 [facility] Estimated glomerular filtrat ion rate (GFR) non- Americanon 07-06-2023 GFR/1.73 sq M.predicted among non-blacks MDRD (S/P/Bld) [Vol rate/Area] 59 mL/min/{1.73_m2} Low >=60 [facility] Hematocrit Auto (Bld) [Volum e fraction]on 07-06-2023 Hematocrit (Bld) [Volume fraction] 37.5 % Low 42.0-54.0 [facility] Hemoglobin [Mass/volume] in Bloodon 07-06-2023 Hemoglobin (Bld) [Mass/Vol] 12.5 g/dL Low 14.0-18.0 [facility] Laboratory - Chemistry and C hemistry - challengeon 07-06-2023 Calcium [Mass/Vol] 9.0 mg/dL 8.5-10.1 [facility] Chloride [Moles/Vol] 98 mmol/L 98-107 [facility] CO2 [Moles/Vol] 27.6 mmol/L 21.0-32.0 [facility] Creatinine [Mass/Vol] 1.17 mg/dL 0.70-1.30 [facility] GFR/1.73 sq M.predicted MDRD (S/P/Bld) [Vol rate/Area] mL/min/{1.73_m2} >=60 [facility] Glucose [Mass/Vol] 109 mg/dL High 74-106 [facility] Potassium [Moles/Vol] 5.1 mmol/L 3.5-5.1 [facility] Sodium [Moles/Vol] 134 mmol/L Low 136-145 [facility] Urea nitrogen [Mass/Vol] 23.0 mg/dL High 7.0-18.0 [facility] Urea nitrogen/Creatinine [Mass ratio] 19.7 mg/mg [facility] Laboratory - Hematology and Cell countson 07-06-2023 Immature granulocytes/100 WBC (Bld) 0.4 % 0.0-0.5 [facility] Leukocytes [#/volume] correc marshal for nucleated erythrocytes in Blood by Automated counon 07-06-2023 WBC corrected for nucl RBC Auto (Bld) [#/Vol] 8.0 10 3/uL 4.0-11.0 [facility] Lymphocytes Auto (Bld) [#/Vo l]on 07-06-2023 Lymphocytes (Bld) [#/Vol] 1.8 10 3/uL 1.2-3.8 [facility] Lymphocytes/100 WBC Auto (Bl d)on 07-06-2023 Lymphocytes/100 WBC (Bld) 22.3 % 20.5-60.0 [facility] MCH Auto (RBC) [Entitic mass ]on 07-06-2023 MCH (RBC) [Entitic mass] 30.7 pg 25.9-34.0 [facility] MCHC Auto (RBC) [Mass/Vol]on 07-06-2023 MCHC (RBC) [Mass/Vol] 33.3 g/dL 29.9-35.2 [facility] MCV Auto (RBC) [Entitic vol] on 07-06-2023 MCV (RBC) [Entitic vol] 92.1 fL 80.0-94.0 [facility] Monocytes Auto (Bld) [#/Vol] on 07-06-2023 Monocytes (Bld) [#/Vol] 1.2 10 3/uL High 0.3-0.8 [facility] Monocytes/100 WBC Auto (Bld) on 07-06-2023 Monocytes/100 WBC (Bld) 15.0 % High 1.7-12.0 [facility] Neutrophils Auto (Bld) [#/Vo l]on 07-06-2023 Neutrophils (Bld) [#/Vol] 4.8 10 3/uL 1.4-6.5 [facility] Neutrophils/100 WBC Auto (Bl d)on 07-06-2023 Neutrophils/100 WBC (Bld) 59.6 % 43.0-75.0 [facility] No Panel Informationon 07-05 Eosinophils # (Auto) 0.2 10 3/uL 0.0-0.7 [facility] Immature Granulocyte # (Auto) 0.03 10 3/uL 0.00-0.03 [facility] Platelet mean volume Auto (B ld) [Entitic vol]on 07-06-2023 Platelet mean volume (Bld) [Entitic vol] 8.9 fL Low 9.5-13.5 [facility] Platelets Auto (Bld) [#/Vol] on 07-06-2023 Platelets (Bld) [#/Vol] 242 10 3/uL 150-450 [facility] RBC Auto (Bld) [#/Vol]on RBC (Bld) [#/Vol] 4.07 10 6/uL Low 4.70-6.10 [facility] Serum or plasma anion gap de terminationon 07-06-2023 Anion gap [Moles/Vol] 13.5 mmol/L [facility] US venous duplex LE RTon US venous duplex LE RT [facility] [address] Ultrasound Report Signed Patient: Norberto Washington MR#: [id number] 87 : 1940 Acct:[id number] Age/Sex: 83 / M ADM Date: 05/15/23 Loc: ER Room: Type: [facility] ER Attending Dr: Ordering Provider: Low Carter [...] Gus Wren MD05/16/2023 11:15 AM Dictation Location: [place] [address] Tech: Helen Malloy Transcribed By: PAUL 05/16/23 111 Dictated By: Gus Wren MD 05/16/231113 Signed By: 05/16/23 111 Normal [facility] Estimated glomerular filtrat ion rate (GFR) non- Americanon 05-03-2023 GFR/1.73 sq M.predicted among non-blacks MDRD (S/P/Bld) [Vol rate/Area] mL/min/{1.73_m2} >=60 [facility] Laboratory - Chemistry and C hemistry - challengeon 05-03-2023 Calcium [Mass/Vol] 8.5 mg/dL 8.5-10.1 [facility] Chloride [Moles/Vol] 100 mmol/L 98-107 [facility] CO2 [Moles/Vol] 27.6 mmol/L 21.0-32.0 [facility] Creatinine [Mass/Vol] 1.06 mg/dL 0.70-1.30 [facility] GFR/1.73 sq M.predicted MDRD (S/P/Bld) [Vol rate/Area] mL/min/{1.73_m2} >=60 [facility] Glucose [Mass/Vol] 135 mg/dL 74-106 [facility] Potassium [Moles/Vol] 4.1 mmol/L 3.5-5.1 [facility] Sodium [Moles/Vol] 136 mmol/L 136-145 [facility] Urea nitrogen [Mass/Vol] 19.0 mg/dL 7.0-18.0 [facility] Urea nitrogen/Creatinine [Mass ratio] 17.9 mg/mg [facility] No Panel Informationon 05-03 C-Reactive Protein, Quantitative <0.50 mg/dL <=0.50 [facility] Serum or plasma anion gap de terminationon 05-03-2023 Anion gap [Moles/Vol] 12.5 mmol/L [facility] Estimated glomerular filtrat ion rate (GFR) non- Americanon 04-30-2023 GFR/1.73 sq M.predicted among non-blacks MDRD (S/P/Bld) [Vol rate/Area] mL/min/{1.73_m2} >=60 [facility] - Chemistry and C hemistry - challengeon 04-30-2023 Calcium [Mass/Vol] 8.7 mg/dL 8.5-10.1 [facility] Chloride [Moles/Vol] 101 mmol/L 98-107 [facility] CO2 [Moles/Vol] 29.2 mmol/L 21.0-32.0 [facility] Creatinine [Mass/Vol] 1.06 mg/dL 0.70-1.30 [facility] GFR/1.73 sq M.predicted MDRD (S/P/Bld) [Vol rate/Area] mL/min/{1.73_m2} >=60 [facility] Glucose [Mass/Vol] 93 mg/dL 74-106 [facility] Potassium [Moles/Vol] 4.6 mmol/L 3.5-5.1 [facility] Sodium [Moles/Vol] 136 mmol/L 136-145 [facility] Urea nitrogen [Mass/Vol] 20.0 mg/dL 7.0-18.0 [facility] Urea nitrogen/Creatinine [Mass ratio] 18.9 mg/mg [facility] No Panel Informationon 04-30 C-Reactive Protein, Quantitative 0.50 mg/dL <=0.50 [facility] Vancomycin Level Trough 11.0 ug/mL 5.0-20.0 [facility] Serum or plasma anion gap de terminationon 04-30-2023 Anion gap [Moles/Vol] 10.4 mmol/L [facility] CNOVon 02-02-2023 CNOV Office Visit (UROLLN) -------- NORBERTO WASHINGTON ([id number]) 1940 M Date Time Provider Department 02/02/23 1:30 PM LETICIA MILIAN During your visit today, we recorded the following information about you: Pulse Blood pressure Weight 65/minute 146/70 102.1 kg Leticia Milian, COMMUNITY THEATER ACTOR.CELL BIOLOGY SCIENTIST 02/02/2023 2:13 PM Signed Norberto Washington [address] [facility] [address] HISTORY OF PRESENT ILLNESS: Seen 07/28/22 for [...] see lab Duration: BPH w obs/luts, UTI [facility] SYMPTOMS SCORE. 1. INCOMPLETE EMPTYING [...] Take 2.5 mg by mouth once daily. gabapentin(NEURONT IN 300 MG CAP) Take one(1) tablet two(2) times daily. lisinopril(PRINIVI L 10 MG TAB) Take one(1) tablet daily. [...] BLOOD SUGAR ONCE A DAY No current facility-administe red medications for this visit. ALLERGY: ALLERGIES Allergen [...] Stream (imp (more content not included)... Normal [facility] Bacteria Ur Culton 3 Bacteria identified Cx Nom (U) CULTURE, URINE: No growth (<1,000 CFU/ml) Normal [facility] Comment on above: Performed By: #### 6 30-4 #### [facility] CLIA [id number] [address] [place] [address] [place] [address] [place] GLYCOHEMOGLOBIN A1Con 2022 ADA RECOMMENDATION SEE BELOW Normal [facility] Comment on above: Result Comment: ADA RECOMMENDED LIMIT 4.0 - 6.0 ADA THERAPEUTIC TARGET < 7.0 ACTION SUGGESTED > 7.0 Performed By: #### A 1C #### [facility] [address] [place] [address] Dr. Juan Pablo Kaminski Glucose [Mass/Vol] 128 mg/dL Normal [facility] Comment on above: Performed By: #### A 1C #### [facility] [address] [place] [address] Dr. Juan Pablo Kaminski HbA1c (Bld) [Mass fraction] 6.1 % Normal 4.5-6.2 [facility] Comment on above: Performed By: #### A 1C #### [facility] [address] [place] [address] Dr. Juan Pablo Kaminski A1C with Estimated Average G luon 03-20-2022 A1C with Estimated Average Glu 128 [facility] [employer] Other A1C with Estimated Average Glu [employer] [facility] [employer] Other HbA1c (Bld) [Mass fraction] 6.1 % Normal 4.5-6.2 [facility] [employer] Other Comment on above: Performed By: #### A 1C #### [facility] [address] [place] [address] Dr. Juan Pablo Kaminski GLYCOHEMOGLOBIN A1Con 2022 ADA RECOMMENDATION SEE BELOW Normal [facility] Comment on above: Result Comment: ADA RECOMMENDED LIMIT 4.0 - 6.0 ADA THERAPEUTIC TARGET < 7.0 ACTION SUGGESTED > 7.0 Performed By: #### A 1C #### [facility] [address] [place] [address] Dr. Juan Pablo Kaminski Glucose [Mass/Vol] 128 mg/dL Normal [facility] Comment on above: Performed By: #### A 1C #### [facility] [address] [place] [address] Dr. Juan Pablo Kaminski US SCROTUM W VASCULAR ORGANo n 12-25-2021 US SCROTUM W VASCULAR ORGAN INDICATION: Pain in testicle EXAMINATION: Ultrasound US SCROTUM W VASCULAR ORGAN TECHNIQUE: Realtime ultrasound of the testicles was performed with grayscale, Color Doppler and spectral Doppler analysis. COMPARISON: A CT scan of the abdomen and pelvis dated 05/20/2019 FINDINGS: RIGHT: The right testicle measures approximately [...] by: LEIDY PEREIRA Date: 2021-12-25 18:32 Normal [facility] Urine culture routineOrdered By: Sam Simons on 12-19-2021 Bacteria identified Cx Nom (U) Pseudomonas aeruginosa [facility] Automated erythrocytes count in urine sediment (number/area)Ordered By: Sam Simons on 12-17-2021 RBC Auto (Urine sed) [#/Area] 1-2 [HPF] 0-4 [facility] Automated leukocytes count i n urine sediment (number/area)Ordered By: Sam Simons on 12-17-2021 WBC Auto (Urine sed) [#/Area] 20-49 [HPF] 0-4 [facility] Bilirubin Test strip Ql (U)O rdered By: Sam Simons on 12-17-2021 Bilirubin Ql (U) Negative Negative [facility] Color Auto (U)Ordered By: Micheal Simons on 12-17-2021 Color (U) Yellow Yellow [facility] Ketones Auto test strip (U) [Mass/Vol]Ordered By: Sam Simons on 12-17-2021 Ketones (U) [Mass/Vol] Negative Negative [facility] Laboratory - UrinalysisOrder ed By: Sam Simons on 12-17-2021 Hyaline casts LM Ql (Urine sed) 0-8 [LPF] 0-8 [facility] Nitrite Test strip Ql (U)Ord ered By: Sam Simons on 12-17-2021 Nitrite Ql (U) Negative Negative [facility] Protein Auto test strip (U) [Mass/Vol]Ordered By: Sam Simons on 12-17-2021 Protein (U) [Mass/Vol] Negative Negative [facility] Specific gravity Auto test s trip (U) [Rel density]Ordered By: Sam Simons on 12-17-2021 Specific gravity (U) [Rel density] 1.016 1.001-1.030 [facility] Squamous epithelial cells de tection in urine sediment by light microscopyOrdered By: Sam Simons on 12-17-2021 Epithelial cells.squamous LM Ql (Urine sed) 0-1 [HPF] 0-2 [facility] Urine bacteria detection by automated methodOrdered By: Sam Simons on 12-17-2021 Bacteria Auto Ql (U) None seen None Seen [facility] Urine clarity by refractomet ry automatedOrdered By: Sam Simons on 12-17-2021 Clarity Refractometry automated (U) Clear Clear [facility] Urine glucose measurement by automated test strip (mass/volume)Ordered By: Sam Simons on 12-17-2021 Glucose Auto test strip (U) [Mass/Vol] Normal mg/dL Normal [facility] Urine hemoglobin detection b y automated test stripOrdered By: Sam Simons on 12-17-2021 Hemoglobin Auto test strip Ql (U) Negative Negative [facility] Urine leukocyte esterase det ection by automated test stripOrdered By: Sam Simons on 12-17-2021 Leukocyte esterase Auto test strip Ql (U) 4+ Negative [facility] Urobilinogen Auto test strip (U) [Mass/Vol]Ordered By: Sam Simons on 12-17-2021 Urobilinogen (U) [Mass/Vol] Normal mg/dL Normal [facility] pH Auto test strip (U)Ordere d By: Sam Simons on 12-17-2021 pH (U) 6.0 [pH] 5.0-9.0 [facility] Urine culture routineOrdered By: Davis Cervantes on 12-13-2021 Bacteria identified Cx Nom (U) No Growth 2 Days [facility] Automated erythrocytes count in urine sediment (number/area)Ordered By: Davis Cervantes on 12-11-2021 RBC Auto (Urine sed) [#/Area] 20-49 [HPF] 0-4 [facility] Automated leukocytes count i n urine sediment (number/area)Ordered By: Davis Cervantes on 12-11-2021 WBC Auto (Urine sed) [#/Area] 10-19 [HPF] 0-4 [facility] Basophils Auto (Bld) [#/Vol] Ordered By: Davis Cervantes on 12-11-2021 Basophils (Bld) [#/Vol] 0.1 10*3/uL 0.0-0.2 [facility] Basophils/100 WBC Auto (Bld) Ordered By: Davis Cervantes on 12-11-2021 Basophils/100 WBC (Bld) 1.2 % . [facility] Bilirubin Test strip Ql (U)O rdered By: Davis Cervantes on 12-11-2021 Bilirubin Ql (U) Negative Negative [facility] Blood hemoglobin measurement (mass/volume)Ordered By: Davis Cervantes on 12-11-2021 Hemoglobin (Bld) [Mass/Vol] 13.3 g/dL 13.0-17.0 [facility] Blood leukocytes automated c ount (number/volume)Ordered By: Davis Cervantes on 12-11-2021 WBC (Bld) [#/Vol] 8.2 10*3/uL 4.5-11.0 [facility] Color Auto (U)Ordered By: Mary Cervantes on 12-11-2021 Color (U) Yellow Yellow [facility] Creatinine and Glomerular fi ltration rate.predicted panel (S/P/Bld)Ordered By: Davis Cervantes on 12-11-2021 Creatinine [Mass/Vol] 1.16 mg/dL 0.64-1.27 [facility] Eosinophils Auto (Bld) [#/Vo l]Ordered By: Davis Cervantes on 12-11-2021 Eosinophils (Bld) [#/Vol] 0.2 10*3/uL 0.0-0.45 [facility] Eosinophils/100 WBC Auto (Bl d)Ordered By: Davis Cervantes on 12-11-2021 Eosinophils/100 WBC (Bld) 2.9 % . [facility] Erythrocyte distribution wid th Auto (RBC) [Ratio]Ordered By: Davis eCrvantes on 12-11-2021 Erythrocyte distribution width (RBC) [Ratio] 11.8 % 12.0-14.8 [facility] Estimated glomerular filtrat ion rate (GFR) non- AmericanOrdered By: Davis Cervantes on 12-11-2021 GFR/1.73 sq M.predicted among non-blacks MDRD (S/P/Bld) [Vol rate/Area] 60 mL/Min [facility] Hematocrit Auto (Bld) [Volum e fraction]Ordered By: Davis Cervantes on 12-11-2021 Hematocrit (Bld) [Volume fraction] 39.6 % 38.8-50.0 [facility] Ketones Auto test strip (U) [Mass/Vol]Ordered By: Davis Cervantes on 12-11-2021 Ketones (U) [Mass/Vol] Negative Negative [facility] Laboratory - Hematology and Cell countsOrdered By: Davis Cervantes on 12-11-2021 Nucleated RBC/100 WBC (Bld) [Ratio] 0.0 % 0-0.5 [facility] Laboratory - UrinalysisOrder ed By: Davis Cervantes on 12-11-2021 Hyaline casts LM Ql (Urine sed) 0-8 [LPF] 0-8 [facility] Lymphocytes Auto (Bld) [#/Vo l]Ordered By: Davis Cervantes on 12-11-2021 Lymphocytes (Bld) [#/Vol] 1.9 10*3/uL 1.00-4.8 [facility] Lymphocytes/100 WBC Auto (Bl d)Ordered By: Davis Cervantes on 12-11-2021 Lymphocytes/100 WBC (Bld) 23.3 % . [facility] MCH Auto (RBC) [Entitic mass ]Ordered By: Davis Cervantes on 12-11-2021 MCH (RBC) [Entitic mass] 32.0 pg 27.5-35.2 [facility] MCHC Auto (RBC) [Mass/Vol]Or dered By: Davis Cervantes on 12-11-2021 MCHC (RBC) [Mass/Vol] 33.6 g/dL 32.5-35.6 [facility] MCV Auto (RBC) [Entitic vol] Ordered By: Davis Cervantes on 12-11-2021 MCV (RBC) [Entitic vol] 95.1 fL 83.5-101 [facility] Monocytes Auto (Bld) [#/Vol] Ordered By: Davis Cervantes on 12-11-2021 Monocytes (Bld) [#/Vol] 1.1 10*3/uL 0.0-0.8 [facility] Monocytes/100 WBC Auto (Bld) Ordered By: Davis Cervantes on 12-11-2021 Monocytes/100 WBC (Bld) 13.6 % . [facility] Neutrophils Auto (Bld) [#/Vo l]Ordered By: Davis Cervantes on 12-11-2021 Neutrophils (Bld) [#/Vol] 4.8 10*3/uL 1.8-7.7 [facility] Neutrophils/100 WBC Auto (Bl d)Ordered By: Davis Cervantes on 12-11-2021 Neutrophils/100 WBC (Bld) 59.0 % . [facility] Nitrite Test strip Ql (U)Ord ered By: Davis Cervantes on 12-11-2021 Nitrite Ql (U) Negative Negative [facility] No Panel InformationOrdered By: Davis Cervantes on 12-11-2021 Estimated GFR () > 60 mL/Min [facility] Comment on above: GFR estimated refere nce range: According to KDOQI guidelines, <60 ml/min/1.73m2 is sufficient to diagnose a patient with chronic kidney disease. Pharmacy Creatinine Clearance (Chem 57.67 [facility] Platelet mean volume Auto (B ld) [Entitic vol]Ordered By: Davis Cervantes on 12-11-2021 Platelet mean volume (Bld) [Entitic vol] 7.0 fL 6.6-10.1 [facility] Platelets Auto (Bld) [#/Vol] Ordered By: Davis Cervantes on 12-11-2021 Platelets (Bld) [#/Vol] 266 10*3/uL 150-450 [facility] Protein Auto test strip (U) [Mass/Vol]Ordered By: Davis Cervantes on 12-11-2021 Protein (U) [Mass/Vol] Negative Negative [facility] RBC Auto (Bld) [#/Vol]Ordere d By: Davis Cervantes on 12-11-2021 RBC (Bld) [#/Vol] 4.17 10*6/uL 3.90-5.60 [facility] Serum or plasma anion gap de terminationOrdered By: Davis Cervantes on 12-11-2021 Anion gap [Moles/Vol] 12.2 mmol/L 6.0-15.0 [facility] Serum or plasma calcium maggy urement (mass/volume)Ordered By: Davis Cervantes on 12-11-2021 Calcium [Mass/Vol] 9.0 mg/dL 8.2-10.2 [facility] Serum or plasma chloride duran surement (moles/volume)Ordered By: Davis Cervantes on 12-11-2021 Chloride [Moles/Vol] 96 mmol/L 95-114 [facility] Serum or plasma glucose maggy urement (mass/volume)Ordered By: Davis Cervantes on 12-11-2021 Glucose [Mass/Vol] 131 mg/dL 70-100 [facility] Comment on above: ADA recommended [...] on 12-11-2021 Sodium [Moles/Vol] 131 mmol/L 136-146 [facility] Serum or plasma total carbon dioxide measurement (moles/volume)Ordered By: Davis Cervantes on 12-11-2021 CO2 [Moles/Vol] 27.3 mmol/L 22.0-30.0 [facility] Serum or plasma urea nitroge n measurement (mass/volume)Ordered By: Davis Cervantes on 12-11-2021 Urea nitrogen [Mass/Vol] 20 mg/dL 9- [facility] Specific gravity Auto test s trip (U) [Rel density]Ordered By: Davis Cervantes on 12-11-2021 Specific gravity (U) [Rel density] 1.014 1.001-1.030 [facility] Squamous epithelial cells de tection in urine sediment by light microscopyOrdered By: Davis Cervantes on 12-11-2021 Epithelial cells.squamous LM Ql (Urine sed) 0-1 [HPF] 0-2 [facility] Urine bacteria detection by automated methodOrdered By: Davis Cervantes on 12-11-2021 Bacteria Auto Ql (U) None seen None Seen [facility] Urine clarity by refractomet ry automatedOrdered By: Davis Cervantes on 12-11-2021 Clarity Refractometry automated (U) Clear Clear [facility] Urine glucose measurement by automated test strip (mass/volume)Ordered By: Davis Cervantes on 12-11-2021 Glucose Auto test strip (U) [Mass/Vol] Normal mg/dL Normal [facility] Urine hemoglobin detection b y automated test stripOrdered By: Davis Cervantes on 12-11-2021 Hemoglobin Auto test strip Ql (U) 2+ Negative [facility] Urine leukocyte esterase det ection by automated test stripOrdered By: Davis Cervantes on 12-11-2021 Leukocyte esterase Auto test strip Ql (U) 2+ Negative [facility] Urobilinogen Auto test strip (U) [Mass/Vol]Ordered By: Davis Cervantes on 12-11-2021 Urobilinogen (U) [Mass/Vol] Normal mg/dL Normal [facility] pH Auto test strip (U)Ordere d By: Davis Cervantes on 12-11-2021 pH (U) 5.5 [pH] 5.0-9.0 [facility] ED NOTEon 11-27-2021 ED NOTE HNO ID: [id number] Author: Alyx Veragra RN Service: Nursing Author Type: Registered Nurse Type: ED Notes Filed: 11/26/2021 10:21 PM Note Text: Discharge instructions and follow up appointments reviewed. Pt verbalized understanding and states no concerns or questions at this time. VSS. Spoke with Asha about elevated BP. Stated that it's okay for pt to go and have him f/u with his PCP. Normal [facility] ED NOTE HNO ID: [id number] Author: Alyx Vergara RN Service: Nursing Author Type: Registered Nurse Type: ED Notes Filed: 11/26/2021 10:10 PM Note Text: Replaced hamilton bag with leg bag. Normal [facility] Bacteria Ur Culton 2 Bacteria identified Cx Nom (U) [id number] Abnormal [facility] Comment on above: Order Comment: Speci men Type: URINE SPECIMEN Ordering Facility: [facility] Address: [address] [place] [address] Result Comment: >=10 0,000 CFU/ml Klebsiella oxytoca Performed By: #### 6 30-4, 41895-6 #### [facility] CLIA [id number] [address] [place] [address] [place] Bacterial susceptibility maldonado el (Isol)on 11-26-2021 Ampicillin [Susc] [facility]istant [facility]: Order Comment: Order ing Facility: [facility] Address: [address] [place] [address] Performed By: #### 6 30-4, 38325-4 #### [facility] CLIA [id number] [address] [place] [address] [place] Ampicillin+Sulbactam [Susc] 4 Susceptible Susceptible <=8 , Intermediate >8 , Resistant >16 [facility] Comment on above: Order Comment: Order ing Facility: [facility] Address: [address] [place] [address] Performed By: #### 6 30-4, 13800-4 #### [facility] CLIA [id number] [address] [place] [address] [place] ceFAZolin [Susc] <=4 Susceptible Susceptible 0-16 , Intermediate <0 or >16 , Resistant >16 [facility] Comment on above: Order Comment: Order ing Facility: [facility] Address: [address] [place] [address] Performed By: #### 6 30-4, 98958-2 #### [facility] CLIA [id number] [address] [place] [address] [place] Cefepime [Susc] <=1 Susceptible Susceptible <=2 , Intermediate >2 , Resistant >=16 [facility] Comment on above: Order Comment: Order ing Facility: [facility] Address: [address] [place] [address] Performed By: #### 6 30-4, 37819-3 #### [facility] CLIA [id number] [address] [place] [address] [place] cefTRIAXone [Susc] <=1 Susceptible Susceptib le <=1 , Intermediate >1 , Resistant >=4 [facility] Comment on above: Order Comment: Order ing Facility: [facility] Address: [address] [place] [address] Performed By: #### 6 30-4, 47557-4 #### [facility] CLIA [id number] [address] [place] [address] [place] Ciprofloxacin [Susc] <=0.25 Susceptible Suscept ible <0.5 , Intermediate >=.5 , Resistant >=1 [facility] Comment on above: Order Comment: Order ing Facility: [facility] Address: [address] [place] [address] Performed By: #### 6 30-4, 44312-0 #### [facility] CLIA [id number] [address] [place] [address] [place] Ertapenem ROCIO [Susc] <=0.5 Susceptible Suscept ible <=0.5 , Intermediate >.5 , Resistant >1 [facility] Comment on above: Order Comment: Order ing Facility: [facility] Address: [address] [place], [place] [id number] Performed By: #### 6 30-4, 86025-6 #### [facility] CLIA [id number] [address] [place] [address] [place] Gentamicin [Susc] <=1 Susceptible Susceptibl e <=4 , Intermediate >4 , Resistant >8 [facility] Comment on above: Order Comment: Order ing Facility: [facility] Address: [address] [place] [address] Performed By: #### 6 30-4, 79053-4 #### [facility] CLIA [id number] [address] [place] [address] Meropenem [Susc] <=0.25 Susceptible Susceptible <=1 , Intermediate >1 , Resistant >2 [facility] Comment on above: Order Comment: Order ing Facility: [facility] Address: [address] [place], [place] [id number] Performed By: #### 6 30-4, 77112-3 #### [facility] CLIA [id number] [address] [place] [address] [place] Nitrofurantoin [Susc] 32 Susceptible Suscep tible <=32 , Intermediate >32 , Resistant >64 [facility] Comment on above: Order Comment: Order ing Facility: [facility] Address: [address] Performed By: #### 6 30-4, 37376-2 #### [facility] CLIA [id number] [address] [place] [address] [place] Piperacillin+Sulbactam ROCIO [Susc] <=4 Susceptible Susceptible <=16 , Intermediate >16 , Resistant >64 [facility] Comment on above: Order Comment: Order ing Facility: [facility] Address: [address] [place] [address] Performed By: #### 6 30-4, 56026-0 #### [facility] CLIA [id number] [address] [place] [address] Tobramycin [Susc] <=1 Susceptible Susceptibl e <=4 , Intermediate >4 , Resistant >8 [facility] Comment on above: Order Comment: Order ing Facility: [facility] Address: [address] [place] [address] Performed By: #### 6 30-4, 50235-1 #### [facility] CLIA [id number] [address] [place] [address] Trimethoprim+Sulfametho xazole [Susc] <=20 Susceptible Susceptible <=40 , Resistant >40 [facility] Comment on above: Order Comment: Order ing Facility: [facility] Address: [address] [place] [address] Performed By: #### 6 30-4, 47055-3 #### [facility] CLIA [id number] [address] [place] [address] ED NOTEon 11-26-2021 ED NOTE HNO ID: [id number] Author: Alyx Vergara RN Service: Nursing Author Type: Registered Nurse Type: ED Notes Filed: 11/26/2021 9:20 PM Note Text: Replaced hamilton per Asha BARR. [facility] ED NOTE HNO ID: [id number] Author: Alyx Vergara RN Service: Nursing Author Type: Registered Nurse Type: ED Notes Filed: 11/26/2021 9:01 PM Note Text: Was instructed to bladder scan pt due to pt having no urine in replaced bag. Bladder scanned 261 mL's the first time. Then 214 mL's the second time. Made Asha ESQUIVEL) aware. [facility] ED NOTE HNO ID: [id number] Author: Alyx Vergara RN Service: Nursing Author Type: Registered Nurse Type: ED Notes Filed: 11/26/2021 9:49 PM Note Text: Flushed 20 mL Hamilton. No leaking noted around tube. Normal [facility] ED PROV NOTEon 11-26-2021 ED PROV NOTE HNO ID: [id number] Author: Asha Clinton PA-C Service: ? 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 Musculoskeletal: Negative. Skin: Negative. Neurological: Negative. Psychiatric/Behavi oral: Negative. All other systems reviewed and are [...] are moist. Eyes: General: No scleral icterus. Conjunctiva/sclera : Conjunctivae normal. Cardiovascular: Rate and Rhythm: Normal [...] Value Ref Range Clarity Cloudy (*) Clear Hemoglobin/Blood,U r 2+ (*) Negative Nitrites Positive (*) Negative Leuk Esterase 3+ (*) Negative WBC, Urine 11-25 /HPF (*) 0-5 /HPF RBC, Urine 6-10 /HPF (*) 0-3 /HPF Bacteria Many (*) None Seen /HPF All other components within normal limits URINE CULTURE Procedures ED Course / Clinical Impression Clinical Impressions as of 11/26/21 6564 Acute cystitis with hematuria Urinary retention Elevated [...] area as well. No fevers, chills. Afebrile, nontoxic-appearing . Benign abdominal exam. Irrigated Hamilton catheter without difficulty. Little to no urine was draining from leg bag in place. Bladder scan performed which was 261. Hamilton catheter changed. Urine draining appropriately. Patient feels much improved. Urinalysis shows 11-25 white blood cells and 6-10 red blood cells, 3+ leukoesterase with positive nitrites. Urine sent for culture. Previous and only urine culture in [facility] on 11/07 had no growth. Given dose of Keflex. Prescription for this E scripted to pharmacy. Patient discharged with Hamilton in place, leg bag instructions. Elevated blood pressure noted and improved during stay. No CP, sob, dizziness or any other complaints. Recommend f/u with pcp for recheck. All questions and concerns addre (more content not included)... Normal [facility] Urinalysis complete panel (U )on 11-26-2021 Bacteria LM.HPF (Urine sed) [#/Area] Many Abnormal None Seen [facility] Comment on above: Order Comment: Speci men Type: URINE SPECIMEN Ordering Facility: [facility] Address: [address] [place] [address] Performed By: #### 6 30-4, 66011-0 #### [facility] CLIA [id number] [address] [place] [address] [place] Bilirubin Ql (U) Negative Normal Negative [facility] Comment on above: Order Comment: Speci men Type: URINE SPECIMEN Ordering Facility: [facility] Address: [address] [place] [address] Performed By: #### 6 30-4, 68689-2 #### [facility] CLIA [id number] [address] [place] [address] [place] Clarity (Unsp spec) Cloudy Abnormal Clear [facility] Comment on above: Order Comment: Speci men Type: URINE SPECIMEN Ordering Facility: [facility] Address: [address] [place] [address] Performed By: #### 6 30-4, 48585-8 #### [facility] CLIA [id number] [address] [place] [address] [place] Color (U) Yellow Normal Yellow [facility] Comment on above: Order Comment: Speci men Type: URINE SPECIMEN Ordering Facility: [facility] Address: [address] [place], [place] [id number] Performed By: #### 6 30-4, 00785-9 #### [facility] CLIA [id number] [address] [place] [address] [place] Epithelial cells LM.HPF (Urine sed) [#/Area] Few Normal [facility] Comment on above: Order Comment: Speci men Type: URINE SPECIMEN Ordering Facility: [facility] Address: [address] [place], [place] [id number] Performed By: #### 6 30-4, 33389-1 #### [facility] CLIA [id number] [address] [place] [address] [place] Glucose Test strip (U) [Mass/Vol] Negative Normal Negative [facility] Comment on above: Order Comment: Speci men Type: URINE SPECIMEN Ordering Facility: [facility] Address: [address] [place], [place] [id number] Performed By: #### 6 30-4, 93551-2 #### [facility] CLIA [id number] [address] [place] [address] [place] Hemoglobin Ql (U) 2+ Abnormal Negative [facility] Comment on above: Order Comment: Speci men Type: URINE SPECIMEN Ordering Facility: [facility] Address: [address] [place], [place] [id number] Performed By: #### 6 30-4, 38737-6 #### [facility] CLIA [id number] [address] [place] [address] [place] Ketones Ql (U) Negative Normal Negative [facility] Comment on above: Order Comment: Speci men Type: URINE SPECIMEN Ordering Facility: [facility] Address: [address] [place], [place] [id number] Performed By: #### 6 30-4, 98375-4 #### [facility] CLIA [id number] [address] [place] [address] [place] Leukocyte esterase Test strip Ql (U) 3+ Abnormal Negative [facility] Comment on above: Order Comment: Speci men Type: URINE SPECIMEN Ordering Facility: [facility] Address: [address] [place] [address] Performed By: #### 6 30-4, 31570-8 #### [facility] CLIA [id number] [address] [place] [address] [place] Nitrite Ql (U) Positive Abnormal Negative [facility] Comment on above: Order Comment: Speci men Type: URINE SPECIMEN Ordering Facility: [facility] Address: [address] [place] [address] Performed By: #### 6 30-4, 11942-8 #### [facility] CLIA [id number] [address] [place] [address] [place] pH (U) 5.5 [pH] Normal 5.0-8.0 [facility] Comment on above: Order Comment: Speci men Type: URINE SPECIMEN Ordering Facility: [facility] Address: [address] [place] [address] Performed By: #### 6 30-4, 05970-8 #### [facility] CLIA [id number] [address] [place] [address] [place] Protein (U) [Mass/Vol] Normal [facility] Comment on above: Order Comment: Speci men Type: URINE SPECIMEN Ordering Facility: [facility] Address: [address] [place] [address] Result Comment: Visi ble blood causes falsely elevated results for analyte Protein. Due to this limitation, Protein will not be reported for patients whose urine contains visible blood. Performed By: #### 6 30-4, 79843-7 #### [facility] CLIA [id number] [address] [place] [address] [place] RBC LM.HPF (Urine sed) [#/Area] 6-10 /HPF Abnormal 0-3 /HPF [facility] Comment on above: Order Comment: Speci men Type: URINE SPECIMEN Ordering Facility: [facility] Address: [address] [place] [address] Performed By: #### 6 30-4, 56583-9 #### [facility] CLIA [id number] [address] [place] [address] [place] Specific gravity (U) [Rel density] 1.009 Normal 1.005-1.030 [facility] Comment on above: Order Comment: Speci men Type: URINE SPECIMEN Ordering Facility: [facility] Address: [address] [place] [address] Performed By: #### 6 30-4, 51920-1 #### [facility] CLIA [id number] [address] [place] [address] [place] Urobilinogen Ql (U) 0.2 EU/dL Normal 0.2-1.0 EU/dL [facility] Comment on above: Order Comment: Speci men Type: URINE SPECIMEN Ordering Facility: [facility] Address: [address] [place] [address] Performed By: #### 6 30-4, 34917-7 #### [facility] CLIA [id number] [address] [place] [address] [place] WBC LM.HPF (Urine sed) [#/Area] 11-25 /HPF Abnormal 0-5 /HPF [facility] Comment on above: Order Comment: Speci men Type: URINE SPECIMEN Ordering Facility: [facility] Address: [address] [place] [address] Performed By: #### 6 30-4, 85647-5 #### [facility] CLIA [id number] [address] [place] [address] [place] Covid-19 PCR ([facility])on SARS-CoV-2 (COVID-19) RNA LUANNE+probe Ql (Unsp spec) Not detected Normal NOT DETECTED [facility] Comment on above: Result Comment: This test is not yet approved or cleared by the [place] FDA. When there are no FDA-approved or cleared tests available, and other criteria are met, FDA can make tests available under an emergency access mechanism called an Emergency Use Authorization (EUA). The EUA for this test is supported by the [place] of Health and Human Service's (HHS's) declaration [...] SARS-CoV-2. Performed By: #### C VDTB #### [facility] [address] [place] [address] Dr. Juan Pablo Kaminski Bacteria Ur Culton 2 Bacteria identified Cx Nom (U) No growth (<1,000 CFU/ml) Normal [facility] Comment on above: Order Comment: Speci men Type: URINE SPECIMEN Ordering Facility: [facility] Address: [address] [place] [address] Performed By: #### 6 30-4 #### [facility] CLIA [id number] [address] [place] [address] [place] Basic metabolic 2000 panelon 11-07-2021 Anion gap [Moles/Vol] 10 mmol/L Normal 9-18 [facility] Comment on above: Order Comment: Speci men Type: URINE SPECIMEN Ordering Facility: [facility] Address: [address] [place], [place] [id number] Performed By: #### 6 30-4, 74206-4 #### [facility] CLIA [id number] [address] [place] [address] [place] Calcium [Mass/Vol] 9.1 mg/dL Normal 8.5-10.2 [facility] Comment on above: Order Comment: Speci men Type: URINE SPECIMEN Ordering Facility: [facility] Address: [address] [place] [address] Performed By: #### 6 30-4, 04857-3 #### [facility] CLIA [id number] [address] [place] [address] [place] Chloride [Moles/Vol] 95 mmol/L Low 97-105 [facility] Comment on above: Order Comment: Speci men Type: URINE SPECIMEN Ordering Facility: [facility] Address: [address] [place] [address] Performed By: #### 6 30-4, 11281-1 #### [facility] CLIA [id number] [address] [place] [address] [place] CO2 [Moles/Vol] 25 mmol/L Normal 22-30 [facility] Comment on above: Order Comment: Speci men Type: URINE SPECIMEN Ordering Facility: [facility] Address: [address] [place], [place] [address] Performed By: #### 6 30-4, 42552-2 #### [facility] CLIA [id number] [address] [place] [address] [place] Creatinine [Mass/Vol] 1.25 mg/dL High 0.73-1.22 [facility] Comment on above: Order Comment: Speci men Type: URINE SPECIMEN Ordering Facility: [facility] Address: [address] [place], [place] [address] Performed By: #### 6 30-4, 78764-5 #### [facility] CLIA [id number] [address] [place] [address] [place] ESTIMATED GLOMERULAR FILTRATION RATE 57 mL/min/1.73m??? Low >=60 [facility] Comment on above: Order Comment: Speci men Type: URINE SPECIMEN Ordering Facility: [facility] Address: [address] [place] [address] Result Comment: Annalise mated Glomerular Filtration Rate [...] actual GFR. Performed By: #### 6 30-4, 71574-7 #### [facility] CLIA [id number] [address] [place] [address] [place] Glucose [Mass/Vol] 129 mg/dL High 74-99 [facility] Comment on above: Order Comment: Domonique garcia Type: URINE SPECIMEN Ordering Facility: [facility] Address: [address] [place] [address] Result Comment: The [place] [employer] (ADA) provides guidance for cutoff [...] Standards of Medical Care in Diabetes 2016, [place] [employer]. Diabetes Care. 2016.39(Suppl 1). Performed By: #### 6 30-4, 46747-4 #### [facility] CLIA [id number] [address] [place] [address] [place] Potassium [Moles/Vol] 4.6 mmol/L Normal 3.7-5.1 [facility] Comment on above: Order Comment: Domonique garcia Type: URINE SPECIMEN Ordering Facility: [facility] Address: [address] [place] [address] Performed By: #### 6 30-4, 78829-1 #### [facility] CLIA [id number] [address] [place] [address] [place] Sodium [Moles/Vol] 130 mmol/L Low 136-144 [facility] Comment on above: Order Comment: Speci men Type: URINE SPECIMEN Ordering Facility: [facility] Address: [address] [place], [place] [address] Performed By: #### 6 30-4, 84395-5 #### [facility] CLIA [id number] [address] [place] [address] [place] Urea nitrogen [Mass/Vol] 23 mg/dL Normal 9-24 [facility] Comment on above: Order Comment: Speci men Type: URINE SPECIMEN Ordering Facility: [facility] Address: [address] [place], [place] [address] Performed By: #### 6 30-4, 33254-9 #### [facility] CLIA [id number] [address] [place] [address] [place] CBC W Auto Differential pane l (Bld)on 11-07-2021 Basophils/100 WBC (Bld) 0.0 % Normal [facility] Comment on above: Order Comment: Speci men Type: URINE SPECIMEN Ordering Facility: [facility] Address: [address] [place], [place] [address] Performed By: #### 6 30-4, 77838-2 #### [facility] CLIA [id number] [address] [place] [address] [place] Differential cell count method Nom (Bld) Manual Normal [facility] Comment on above: Order Comment: Speci men Type: URINE SPECIMEN Ordering Facility: [facility] Address: [address] [place], [place] [address] Performed By: #### 6 30-4, 65516-1 #### [facility] CLIA [id number] [address] [place] [address] [place] Eosinophils (Bld) [#/Vol] 0.10 10*3/uL Normal <0.46 [facility] Comment on above: Order Comment: Speci men Type: URINE SPECIMEN Ordering Facility: [facility] Address: [address] [place] [address] Performed By: #### 6 30-4, 56156-2 #### [facility] CLIA [id number] [address] [place] [address] [place] Eosinophils/100 WBC (Bld) 1.0 % Normal [facility] Comment on above: Order Comment: Speci men Type: URINE SPECIMEN Ordering Facility: [facility] Address: [address] [place] [address] Performed By: #### 6 30-4, 26880-2 #### [facility] CLIA [id number] [address] [place] [address] [place] Erythrocyte distribution width (RBC) [Ratio] 11.5 % Normal 11.5-15.0 [facility] Comment on above: Order Comment: Speci men Type: URINE SPECIMEN Ordering Facility: [facility] Address: [address] [place] [address] Performed By: #### 6 30-4, 81363-6 #### [facility] CLIA [id number] [address] [place] [address] [place] Hematocrit (Bld) [Volume fraction] 39.8 % Normal 39.0-51.0 [facility] Comment on above: Order Comment: Speci men Type: URINE SPECIMEN Ordering Facility: [facility] Address: [address] [place], [place] [address] Performed By: #### 6 30-4, 84378-8 #### [facility] CLIA [id number] [address] [place] [address] [place] Hemoglobin (Bld) [Mass/Vol] 13.4 g/dL Normal 13.0-17.0 [facility] Comment on above: Order Comment: Speci men Type: URINE SPECIMEN Ordering Facility: [facility] Address: [address] [place] [address] Performed By: #### 6 30-4, 23023-7 #### [facility] CLIA [id number] [address] [place] [address] [place] Lymphocytes (Bld) [#/Vol] 1.67 10*3/uL Normal 1.00-4.00 [facility] Comment on above: Order Comment: Speci men Type: URINE SPECIMEN Ordering Facility: [facility] Address: [address] [place] [address] Performed By: #### 6 30-4, 77923-7 #### [facility] CLIA [id number] [address] [place] [address] [place] Lymphocytes/100 WBC (Bld) 17.0 % Normal [facility] Comment on above: Order Comment: Speci men Type: URINE SPECIMEN Ordering Facility: [facility] Address: [address] [place] [address] Performed By: #### 6 30-4, 52481-6 #### [facility] CLIA [id number] [address] [place] [address] [place] MCH (RBC) [Entitic mass] 31.5 pg Normal 26.0-34.0 [facility] Comment on above: Order Comment: Speci men Type: URINE SPECIMEN Ordering Facility: [facility] Address: [address] [place] [address] Performed By: #### 6 30-4, 02513-3 #### [facility] CLIA [id number] [address] [place] [address] [place] MCHC (RBC) [Mass/Vol] 33.7 g/dL Normal 30.5-36.0 [facility] Comment on above: Order Comment: Speci men Type: URINE SPECIMEN Ordering Facility: [facility] Address: [address] [place], [place] [address] Performed By: #### 6 30-4, 02051-0 #### [facility] CLIA [id number] [address] [place] [address] [place] MCV (RBC) [Entitic vol] 93.4 fL Normal 80.0-100.0 [facility] Comment on above: Order Comment: Speci men Type: URINE SPECIMEN Ordering Facility: [facility] Address: [address] [place], [place] [address] Performed By: #### 6 30-4, 43625-7 #### [facility] CLIA [id number] [address] [place] [address] [place] Neutrophils (Bld) [#/Vol] 6.29 10*3/uL Normal 1.45-7.50 [facility] Comment on above: Order Comment: Speci men Type: URINE SPECIMEN Ordering Facility: [facility] Address: [address] [place], [place] [address] Performed By: #### 6 30-4, 95256-4 #### [facility] CLIA [id number] [address] [place] [address] [place] Neutrophils/100 WBC (Bld) 64.0 % Normal [facility] Comment on above: Order Comment: Speci men Type: URINE SPECIMEN Ordering Facility: [facility] Address: [address] [place], [place] [address] Performed By: #### 6 30-4, 13439-2 #### [facility] CLIA [id number] [address] [place] [address] [place] Nucleated RBC/100 WBC (Bld) [Ratio] 0.0 /100 WBC Normal [facility] Comment on above: Order Comment: Speci men Type: URINE SPECIMEN Ordering Facility: [facility] Address: [address] [place], [place] [address] Performed By: #### 6 30-4, 89877-0 #### [facility] CLIA [id number] [address] [place] [address] [place] PLATELET ESTIMATE Adequate Normal [facility] Comment on above: Order Comment: Speci men Type: URINE SPECIMEN Ordering Facility: [facility] Address: [address] [place] [address] Performed By: #### 6 30-4, 97526-4 #### [facility] CLIA [id number] [address] [place] [address] [place] Platelet mean volume (Bld) [Entitic vol] 10.2 fL Normal 9.0-12.7 [facility] Comment on above: Order Comment: Speci men Type: URINE SPECIMEN Ordering Facility: [facility] Address: [address] [place] [address] Performed By: #### 6 30-4, 61925-3 #### [facility] CLIA [id number] [address] [place] [address] [place] Platelets (Bld) [#/Vol] 258 10*3/uL Normal 150-400 [facility] Comment on above: Order Comment: Speci men Type: URINE SPECIMEN Ordering Facility: [facility] Address: [address] [place] [address] Performed By: #### 6 30-4, 04500-2 #### [facility] CLIA [id number] [address] [place] [address] [place] RBC (Bld) [#/Vol] 4.26 10*6/uL Normal 4.20-6.00 [facility] Comment on above: Order Comment: Speci men Type: URINE SPECIMEN Ordering Facility: [facility] Address: [address] [place], [place] [address] Performed By: #### 6 30-4, 55832-8 #### [facility] CLIA [id number] [address] [place] [address] [place] RED CELL MORPH Reviewed: unremarkable Normal [facility] Comment on above: Order Comment: Speci men Type: URINE SPECIMEN Ordering Facility: [facility] Address: [address] [place], [place] [address] Performed By: #### 6 30-4, 53438-0 #### [facility] CLIA [id number] [address] [place] [address] [place] WAM - ABS BASO 0.00 k/uL Normal <0.11 [facility] Comment on above: Order Comment: Speci men Type: URINE SPECIMEN Ordering Facility: [facility] Address: [address] [place], [place] [address] Performed By: #### 6 30-4, 10887-2 #### [facility] CLIA [id number] [address] [place] [address] [place] WAM - ABS MONO 1.77 k/uL High <0.87 [facility] Comment on above: Order Comment: Speci men Type: URINE SPECIMEN Ordering Facility: [facility] Address: [address] [place], [place] [address] Performed By: #### 6 30-4, 15487-1 #### [facility] CLIA [id number] [address] [place] [address] [place] WAM - MONO% 18.0 % Normal [facility] Comment on above: Order Comment: Speci men Type: URINE SPECIMEN Ordering Facility: [facility] Address: [address] [place], [place] [address] Performed By: #### 6 30-4, 78825-1 #### [facility] CLIA [id number] [address] [place] [address] [place] WAM ABSOLUTE NRBC <0.01 Normal <0.01 [facility] Comment on above: Order Comment: Speci men Type: URINE SPECIMEN Ordering Facility: [facility] Address: [address] [place], [place] [address] Performed By: #### 6 30-4, 63243-7 #### [facility] CLIA [id number] [address] [place], [place] [address] [place] [address] [place] WBC (Bld) [#/Vol] 9.83 10*3/uL Normal 3.70-11.00 [facility] Comment on above: Order Comment: Speci men Type: URINE SPECIMEN Ordering Facility: [facility] Address: [address] [place], [place] [address] Performed By: #### 6 30-4, 52992-8 #### [facility] CLIA [id number] [address] [place], [place] [address] [address] OF [facility] ED NOTEon 11-07-2021 ED NOTE HNO ID: [id number] Author: Yoshi Schumacher RN Service: ? Author Type: Registered Nurse Type: ED Notes Filed: 11/07/2021 5:14 PM Note Text: Pt provided with discharged instructions. Medications gone over and all questions answered. Pt. Left with steady gait with friend for a ride. [facility] ED NOTE HNO ID: [id number] Author: Flaquita Donnelly RN Service: ? Author Type: Registered Nurse Type: ED Notes Filed: 11/07/2021 1:24 PM Note Text: Pt to ED for urinary retention. Pt had appointment with Urology on Wednesday, but was not able to be seen. Pt denies pain, but reports pressure in the bladder. Pt states he is not able to urinate completely and reports dribbling. [facility] ED PROV NOTEon 11-07-2021 ED PROV NOTE HNO ID: [id number] Author: Keely Gutierrez DO Service: Emergency Medicine [...] this Wednesday with his urologist out of [place] but was notified that his urologist had [...] Abnormal; Notable for the following components: Abs Twiggs 1.77 (*) <0.87 k/uL All other components [...] cysts one of which is mildly complex. 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 I offered to place a Hamilotn for comfort but he elects to hold [...] at th (more content not included)... Normal [facility] US KIDNEY/BLADDERon 11-08-19 US KIDNEY/BLADDER * * *Final Report* * * DATE OF EXAM: Nov 07 2021 2:52PM [facility] 1055 - US KIDNEY/BLADDER / PROCEDURE REASON: [...] cysts one of which is mildly complex. 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: [facility] Transcribe Date/Time: Nov 07 2021 2:57P Dictated by : NEHEMIAS COLBERT MD This examination was interpreted and the report reviewed and electronically signed by: NEHEMIAS COLBERT MD on Nov 07 2021 3:09PM EST [id number] IACN Normal [facility] Urinalysis complete panel (U )on 11-07-2021 Bilirubin Ql (U) Negative Normal Negative [facility] Comment on above: Order Comment: Speci men Type: URINE SPECIMEN Ordering Facility: [facility] Address: [address] [place] [address] Performed By: #### 6 30-4, 35902-5 #### [facility] CLIA [id number] [address] [place] [address] [place] [address] [place] Clarity (Unsp spec) Clear Normal Clear [facility] Comment on above: Order Comment: Speci men Type: URINE SPECIMEN Ordering Facility: [facility] Address: [address] [place] [address] Performed By: #### 6 30-4, 66841-4 #### [facility] CLIA [id number] [address] [place] [address] [place] Color (U) Yellow Normal Yellow [facility] Comment on above: Order Comment: Speci men Type: URINE SPECIMEN Ordering Facility: [facility] Address: [address] [place], [place] [address] Performed By: #### 6 30-4, 08510-3 #### [facility] CLIA [id number] [address] [place] [address] [place] Epithelial cells LM.HPF (Urine sed) [#/Area] Few Normal [facility] Comment on above: Order Comment: Speci men Type: URINE SPECIMEN Ordering Facility: [facility] Address: [address] [place], [place] [address] Performed By: #### 6 30-4, 48649-5 #### [facility] CLIA [id number] [address] [place] [address] [place] Glucose Test strip (U) [Mass/Vol] Negative Normal Negative [facility] Comment on above: Order Comment: Speci men Type: URINE SPECIMEN Ordering Facility: [facility] Address: [address] [place] [address] Performed By: #### 6 30-4, 48878-5 #### [facility] CLIA [id number] [address] [place] [address] [place] Hemoglobin Ql (U) Negative Normal Negative [facility] Comment on above: Order Comment: Speci men Type: URINE SPECIMEN Ordering Facility: [facility] Address: [address] [place] [address] Performed By: #### 6 30-4, 72131-3 #### [facility] CLIA [id number] [address] [place] [address] [place] Hyaline casts (Urine sed) [#/Area] 1-3 /LPF Abnormal 0 /LPF [facility] Comment on above: Order Comment: Speci men Type: URINE SPECIMEN Ordering Facility: [facility] Address: [address] [place] [address] Performed By: #### 6 30-4, 50639-6 #### [facility] CLIA [id number] [address] [place] [address] [place] Ketones Ql (U) Trace Abnormal Negative [facility] Comment on above: Order Comment: Speci men Type: URINE SPECIMEN Ordering Facility: [facility] Address: [address] [place] [address] Performed By: #### 6 30-4, 86002-3 #### [facility] CLIA [id number] [address] [place] [address] [place] Leukocyte esterase Test strip Ql (U) Negative Normal Negative [facility] Comment on above: Order Comment: Speci men Type: URINE SPECIMEN Ordering Facility: [facility] Address: [address] [place] [address] Performed By: #### 6 30-4, 43928-2 #### [facility] CLIA [id number] [address] [place] [address] [place] Nitrite Ql (U) Negative Normal Negative [facility] Comment on above: Order Comment: Speci men Type: URINE SPECIMEN Ordering Facility: [facility] Address: [address] [place] [address] Performed By: #### 6 30-4, 98527-8 #### [facility] CLIA [id number] [address] [place] [address] [place] pH (U) 5.5 [pH] Normal 5.0-8.0 [facility] Comment on above: Order Comment: Speci men Type: URINE SPECIMEN Ordering Facility: [facility] Address: [address] [place] [address] Performed By: #### 6 30-4, 93245-9 #### [facility] CLIA [id number] [address] [place] [address] [place] Protein (U) [Mass/Vol] Negative Normal Negative [facility] Comment on above: Order Comment: Speci men Type: URINE SPECIMEN Ordering Facility: [facility] Address: [address] [place] [address] Performed By: #### 6 30-4, 22607-7 #### [facility] CLIA [id number] [address] [place] [address] [place] RBC LM.HPF (Urine sed) [#/Area] 0-3 /HPF Normal 0-3 /HPF [facility] Comment on above: Order Comment: Speci men Type: URINE SPECIMEN Ordering Facility: [facility] Address: [address] [place] [address] Performed By: #### 6 30-4, 27137-0 #### [facility] CLIA [id number] [address] [place] [address] [place] Specific gravity (U) [Rel density] 1.024 Normal 1.005-1.030 [facility] Comment on above: Order Comment: Speci men Type: URINE SPECIMEN Ordering Facility: [facility] Address: [address] [place] [address] Performed By: #### 6 30-4, 45932-9 #### [facility] CLIA [id number] [address] [place] [address] [place] Urobilinogen Ql (U) 0.2 EU/dL Normal 0.2-1.0 EU/dL [facility] Comment on above: Order Comment: Speci men Type: URINE SPECIMEN Ordering Facility: [facility] Address: [address] [place] [address] Performed By: #### 6 30-4, 44945-3 #### [facility] CLIA [id number] [address] [place] [address] [place] WBC LM.HPF (Urine sed) [#/Area] 0-5 /HPF Normal 0-5 /HPF [facility] Comment on above: Order Comment: Speci men Type: URINE SPECIMEN Ordering Facility: [facility] Address: [address] [place] [address] Performed By: #### 6 30-4, 87986-9 #### [facility] CLIA [id number] [address] [place] [address] [place] MICROALBUMIN URINEon 022 Albumin, Urine 5.6 ug/mL Normal Not Estab. [facility] Comment on above: Performed By: #### M ALBLC #### [facility] [address] [place] [address] [address] Juan Pablo Kaminski US CAROTID ART BILon US CAROTID ART SIMONE EXAMINATION: US CAROTID [...] SAMY TORRES Date: 2021-10-23 17:19 Normal [facility] CBC AUTO DIFFon 10-21-2021 BASO # 0.0 103/ul Normal 0.0-0.1 [facility] Comment on above: Performed By: #### A 1C #### [facility] [address] [address] [address] Juan Pablo Kaminski Basophils/100 WBC (Bld) 0.5 % Normal 0.2-2.0 [facility] Comment on above: Performed By: #### A 1C #### [facility] [address] [place] [address] Dr. Juan Pablo Kaminski EO # 0.3 103/ul Normal 0.0-0.7 [facility] Comment on above: Performed By: #### A 1C #### [facility] [address] [place] [address] Dr. Juan Pablo Kaminski Eosinophils/100 WBC (Bld) 3.6 % Normal 0.9-7.0 [facility] Comment on above: Performed By: #### A 1C #### [facility] [address] [place] [address] Dr. Juan Pablo Kaminski Erythrocyte distribution width (RBC) [Ratio] 11.1 % Normal 11.0-15.0 [facility] Comment on above: Performed By: #### A 1C #### [facility] [address] [place] [address] Dr. Juan Pablo Kaminski Hematocrit (Bld) [Volume fraction] 41.8 % Critically low 42.0-54.0 [facility] Comment on above: Performed By: #### A 1C #### [facility] [address] [place] [address] Dr. Juan Pablo Kaminski Hemoglobin (Bld) [Mass/Vol] 14.1 g/dL Normal 14.0-18.0 [facility] Comment on above: Performed By: #### A 1C #### [facility] [address] [place] [address] Dr. Juan Pablo Kaminski IG # 0.03 10e3/ul Normal 0.00-0.03 [facility] Comment on above: Performed By: #### A 1C #### [facility] [address] [place] [address] Dr. Juan Pablo Kaminski IG % 0.4 % Normal 0.0-0.5 [facility] Comment on above: Performed By: #### A 1C #### [facility] [address] [address] [address] Juan Pablo Kaminski LYMPH # 2.2 103/ul Normal 1.2-3.8 [facility] Comment on above: Performed By: #### A 1C #### [facility] [address] [place] [address] Dr. Juan Pablo Kaminski Lymphocytes/100 WBC (Bld) 29.4 % Normal 20.5-60.0 [facility] Comment on above: Performed By: #### A 1C #### [facility] [address] [place] [address] Dr. Juan Pablo Kaminski MANUAL DIFF REQ NO Normal [facility] Comment on above: Performed By: #### A 1C #### [facility] [address] [place] [address] Dr. Juan Pablo Kaminski MCH (RBC) [Entitic mass] 31.8 pg Normal 25.9-34.0 [facility] Comment on above: Performed By: #### A 1C #### [facility] [address] [place] [address] Dr. Juan Pablo Kaminski MCHC (RBC) [Mass/Vol] 33.7 g/dL Normal 29.9-35.2 [facility] Comment on above: Performed By: #### A 1C #### [facility] [address] [place] [address] Dr. Juan Pablo Kaminski MCV (RBC) [Entitic vol] 94.1 fL Critically high 80.0-94 .0 [facility] Comment on above: Performed By: #### A 1C #### [facility] [address] [place] [address] Dr. Juan Pablo Kaminski MONO # 0.9 103/ul Critically high 0.3-0.8 [facility] Comment on above: Performed By: #### A 1C #### [facility] [address] [place] [address] Dr. Juan Pablo Kaminski Monocytes/100 WBC (Bld) 11.7 % Normal 1.7-12.0 [facility] Comment on above: Performed By: #### A 1C #### [facility] [address] [address] [address] Juan Pablo Kaminski NEUT # 4.0 103/ul Normal 1.4-6.5 [facility] Comment on above: Performed By: #### A 1C #### [facility] [address] [place] [address] Dr. Juan Pablo Kaminski Neutrophils/100 WBC (Bld) 54.4 % Normal 43.0-75.0 [facility] Comment on above: Performed By: #### A 1C #### [facility] [address] [address] [address] Juan Pablo Kaminski Platelet mean volume (Bld) [Entitic vol] 8.6 fL Critically low 9.5-13.5 [facility] Comment on above: Performed By: #### A 1C #### [facility] [address] [place] [address] Dr. Juan Pablo Kaminski PLT 231 103/ul Normal 150-450 [facility] Comment on above: Performed By: #### A 1C #### [facility] [address] [address] [address] Juan Pablo Kaminski RBC 4.44 106/ul Critically low 4.70-6.10 [facility] Comment on above: Performed By: #### A 1C #### [facility] [address] [place] [address] Dr. Juan Pablo Kaminski WBC 7.3 103/ul Normal 4.0-11.0 [facility] Comment on above: Performed By: #### A 1C #### [facility] [address] [place] [address] Dr. Juan Pablo Kaminski DIRECT LDLon 10-21-2021 Cholesterol in LDL [Mass/Vol] 106 mg/dL Normal [facility] Comment on above: Performed By: #### A LT, BMP, DLDL #### [facility] [address] [place] [address] Dr. Juan Pablo Kaminski DLDL NORMAL SEE BELOW Normal [facility] Comment on above: Result Comment: <100 mg/dl OPTIMAL 100 - 129 mg/dl NEAR OR ABOVE OPTIMAL 130 - 159 mg/dl BORDERLINE HIGH 160 - 189 mg/dl HIGH >190 mg/dl VERY HIGH Performed By: #### A LT, BMP, DLDL #### [facility] [address] [address] [address] Juan Pablo Kaminski GLYCOHEMOGLOBIN A1Con 2021 ADA RECOMMENDATION SEE BELOW Normal [facility] Comment on above: Result Comment: ADA RECOMMENDED LIMIT 4.0 - 6.0 ADA THERAPEUTIC TARGET < 7.0 ACTION SUGGESTED > 7.0 Performed By: #### A 1C #### [facility] [address] [address] [address] Juan Pablo Kaminski Glucose [Mass/Vol] 120 mg/dL Normal [facility] Comment on above: Performed By: #### A 1C #### [facility] [address] [place] [address] Dr. Juan Pablo Kaminski HbA1c (Bld) [Mass fraction] 5.8 % Normal 4.5-6.2 [facility] Comment on above: Performed By: #### A 1C #### [facility] [address] [place] [address] Dr. Juan Pablo Kaminski PROF CHEM 8 (BAS METB)on Anion gap [Moles/Vol] 12.7 mmol/L Normal [facility] Comment on above: Performed By: #### A 1C #### [facility] [address] [place] [address] Dr. Juan Pablo Kaminski Calcium [Mass/Vol] 8.7 mg/dL Normal 8.5-10.1 [facility] Comment on above: Performed By: #### A 1C #### [facility] [address] [place] [address] Dr. Juan Pablo Kaminski Chloride [Moles/Vol] 98 mmol/L Normal 98-107 [facility] Comment on above: Performed By: #### A 1C #### [facility] [address] [place] [address] Dr. Juan Pablo Kaminski CO2 [Moles/Vol] 28.0 mmol/L Normal 21.0-32.0 [facility] Comment on above: Performed By: #### A 1C #### [facility] [address] [place] [address] Dr. Juan Pablo Kaminski Creatinine [Mass/Vol] 1.07 mg/dL Normal 0.70-1.30 [facility] Comment on above: Performed By: #### A 1C #### [facility] [address] [place] [address] Dr. Juan Pablo Kaminski EGFR-AF [facility] LUCIAN >60 Normal >=60 [facility] Comment on above: Performed By: #### A 1C #### [facility] [address] [place] [address] Dr. Juan Pablo Kaminski EGFR-NON AF [facility] LUCIAN >60 Normal >=60 [facility] Comment on above: Performed By: #### A 1C #### [facility] [address] [place] [address] Dr. Juan Pablo Kaminski Glucose [Mass/Vol] 133 mg/dL Critically high 74-106 [facility] Comment on above: Performed By: #### A 1C #### [facility] [address] [place] [address] Dr. Juan Pablo Kaminski Potassium [Moles/Vol] 4.7 mmol/L Normal 3.5-5.1 [facility] Comment on above: Performed By: #### A 1C #### [facility] [address] [place] [address] Dr. Juan Pablo Kaminski Sodium [Moles/Vol] 134 mmol/L Critically low 136-145 [facility] Comment on above: Performed By: #### A 1C #### [facility] [address] [place] [address] Dr. Juan Pablo Kaminski Urea nitrogen [Mass/Vol] 17.0 mg/dL Normal 7.0-18.0 [facility] Comment on above: Performed By: #### A 1C #### [facility] [address] [place] [address] Dr. Juan Pablo Kaminski Urea nitrogen/Creatinine [Mass ratio] 15.9 mg/mg Normal [facility] Comment on above: Performed By: #### A 1C #### [facility] [address] [place] [address] Dr. Juan Pablo Kaminski [facility] 10-21-2021 ALT [Catalytic activity/Vol] 31 U/L Normal 16-63 [facility] Comment on above: Performed By: #### A 1C #### [facility] [address] [address] [address] Juan Pablo Kaminski GLYCOHEMOGLOBIN A1Con 2021 ADA RECOMMENDATION SEE BELOW Normal [facility] Comment on above: Result Comment: ADA RECOMMENDED LIMIT 4.0 - 6.0 ADA THERAPEUTIC TARGET < 7.0 ACTION SUGGESTED > 7.0 Performed By: #### A 1C #### [facility] [address] [address] [address] Juan Pablo Kaminski Glucose [Mass/Vol] 131 mg/dL Normal [facility] Comment on above: Performed By: #### A 1C #### [facility] [address] [address] [address] Juan Pablo Kaminski HbA1c (Bld) [Mass fraction] 6.2 % Normal 4.5-6.2 [facility] Comment on above: Performed By: #### A 1C #### [facility] [address] [address] [address] Juan Pablo Kaminski Vital Signs Date Time Vital Sign Value Performing Clinician Faci shanitay 09-23-2023 08:35-0400 Body height 190.5 cm DO Campbell Ball Work Phone: [facility] 09-23-2023 08:35-0400 Body mass index (BMI) [Ratio] 27.8 kg/m2 DO Campbell Ball Work Phone: [facility] 09-23-2023 08:35-0400 Body weight 100.86 kg DO Campbell Ball Work Phone: [facility] 09-23-2023 08:35-0400 Diastolic blood pressure 68 mm[Hg] DO Campbell Ball Work Phone: [facility] 09-23-2023 08:35-0400 Heart rate 70 /min DO Campbell Ball Work Phone: [facility] 09-23-2023 08:35-0400 Respiratory rate 12 /min DO Campbell Ball Work Phone: [facility] 09-23-2023 08:35-0400 Systolic blood pressure 141 mm[Hg] DO Campbell Ball Work Phone: [facility] 08-04-2023 08:59-0400 Body mass index (BMI) [Ratio] 27.5 kg/m2 Leticia Pangburn COMMUNITY THEATER ACTOR.CELL BIOLOGY SCIENTIST Work Phone: [facility] 08-04-2023 08:59-0400 Body weight 99.79 kg Leticia Rukhsana COMMUNITY THEATER ACTOR.CELL BIOLOGY SCIENTIST Work Phone: [facility] 08-04-2023 08:59-0400 Diastolic blood pressure 56 mm[Hg] Leticia Pangburn COMMUNITY THEATER ACTOR.CELL BIOLOGY SCIENTIST Work Phone: [facility] 08-04-2023 08:59-0400 Heart rate 65 /min Leticia Pangburn COMMUNITY THEATER ACTOR.CELL BIOLOGY SCIENTIST Work Phone: [facility] 08-04-2023 08:59-0400 Systolic blood pressure 130 mm[Hg] Leticia Pangburn COMMUNITY THEATER ACTOR.CELL BIOLOGY SCIENTIST Work Phone: [facility] 07-09-2023 13:38-0400 Body height 190.5 cm DO Campbell Ball Work Phone: [facility] 07-09-2023 13:38-0400 Body mass index (BMI) [Ratio] 28 kg/m2 DO Campbell Ball Work Phone: [facility] 07-09-2023 13:38-0400 Body weight 101.6 kg DO Campbell Ball Work Phone: [facility] 07-09-2023 13:38-0400 Diastolic blood pressure 60 mm[Hg] DO Campbell Ball Work Phone: [facility] 07-09-2023 13:38-0400 Heart rate 78 /min DO Campbell Ball Work Phone: [facility] 07-09-2023 13:38-0400 Systolic blood pressure 143 mm[Hg] DO Campbell Ball Work Phone: [facility] 06-23-2023 09:16-0400 Body height 190.5 cm DO Campbell Ball Work Phone: [facility] 06-23-2023 09:16-0400 Body mass index (BMI) [Ratio] 28 kg/m2 DO Campbell Ball Work Phone: [facility] 06-23-2023 09:16-0400 Body weight 101.6 kg DO Campbell Ball Work Phone: [facility] 06-23-2023 09:16-0400 Diastolic blood pressure 64 mm[Hg] DO Campbell Ball Work Phone: [facility] 06-23-2023 09:16-0400 Heart rate 69 /min DO Campbell Ball Work Phone: [facility] 06-23-2023 09:16-0400 Respiratory rate 16 /min DO Campbell Ball Work Phone: [facility] 06-23-2023 09:16-0400 Systolic blood pressure 147 mm[Hg] DO Campbell Ball Work Phone: [facility] 05-21-2023 10:53-0500 Body height 190.5 cm DO Campbell Ball Work Phone: [facility] 05-21-2023 10:53-0500 Body mass index (BMI) [Ratio] 27 kg/m2 DO Campbell Ball Work Phone: [facility] 05-21-2023 10:53-0500 Body weight 98.03 kg DO Campbell Ball Work Phone: [facility] 05-21-2023 10:53-0500 Diastolic blood pressure 77 mm[Hg] DO Campbell Ball Work Phone: [facility] 05-21-2023 10:53-0500 Heart rate 76 /min DO Campbell Ball Work Phone: [facility] 05-21-2023 10:53-0500 Respiratory rate 12 /min DO Campbell Ball Work Phone: [facility] 05-21-2023 10:53-0500 Systolic blood pressure 133 mm[Hg] DO Campbell Ball Work Phone: [facility] 05-15-2023 13:10-0500 Body temperature 98.6 [degF] DO Campbell Ball Work Phone: [facility] 05-15-2023 13:10-0500 Diastolic blood pressure 90 mm[Hg] DO Campbell Ball Work Phone: [facility] 05-15-2023 13:10-0500 Heart rate 90 /min DO Campbell Ball Work Phone: [facility] 05-15-2023 13:10-0500 Respiratory rate 18 /min DO Campbell Ball Work Phone: [facility] 05-15-2023 13:10-0500 SaO2% (BldA) [Mass fraction] 97 % DO Campbell Ball Work Phone: [facility] 05-15-2023 13:10-0500 Systolic blood pressure 181 mm[Hg] DO Campbell Ball Work Phone: [facility] 05-15-2023 10:56-0500 Body height 190.5 cm DO Campbell Ball Work Phone: [facility] 05-15-2023 10:56-0500 Body weight 99.9 kg DO Campbell Ball Work Phone: [facility] 04-21-2023 14:30-0500 Body height 190.5 cm Campbell Ball Other [employer] Other 04-21-2023 14:30-0500 Body mass index (BMI) [Ratio] 28.07 kg/m2 Campbell Ball Other [employer] [facility] [employer] Other 04-21-2023 14:30-0500 Body weight 101.88 kg Campbell Ball Other [employer] [facility] [employer] Other 04-21-2023 14:30-0500 Diastolic blood pressure 68 mm[Hg] Campbell Ball Other [employer] Other 04-21-2023 14:30-0500 Respiratory rate 12 /min Campbell Ball Other [employer] Other 04-21-2023 14:30-0500 Systolic blood pressure 129 mm[Hg] Campbell Ball Other [employer] Other 03-17-2023 10:30-0500 Body height 190.5 cm Campbell Ball Other [employer] Other 03-17-2023 10:30-0500 Body mass index (BMI) [Ratio] 27.55 kg/m2 Campbell Ball Other [employer] Other 03-17-2023 10:30-0500 Body weight 99.97 kg Campbell Ball Other [employer] Other 03-17-2023 10:30-0500 Diastolic blood pressure 67 mm[Hg] Campbell Ball Other [employer] Other 03-17-2023 10:30-0500 Respiratory rate 12 /min Campbell Ball Other [employer] Other 03-17-2023 10:30-0500 Systolic blood pressure 159 mm[Hg] Campbell Ball Other [employer] Other 02-23-2023 09:30-0500 Body height 190.5 cm Campbell Ball Other [employer] Other 02-23-2023 09:30-0500 Body mass index (BMI) [Ratio] 28.02 kg/m2 Campbell Ball Other [employer] Other 02-23-2023 09:30-0500 Body weight 101.7 kg Campbell Ball Other [employer] Other 02-23-2023 09:30-0500 Diastolic blood pressure 78 mm[Hg] Campbell Ball Other [employer] Other 02-23-2023 09:30-0500 Respiratory rate 12 /min Campbell Ball Other [employer] Other 02-23-2023 09:30-0500 Systolic blood pressure 157 mm[Hg] Campbell Ball Other [employer] Other 02-19-2023 10:45-0500 Body height 190.5 cm Campbell Ball Other [employer] Other 02-19-2023 10:45-0500 Body mass index (BMI) [Ratio] 28 kg/m2 Campbell Ball Other [employer] Other 02-19-2023 10:45-0500 Body weight 101.61 kg Campbell Ball Other [employer] Other 02-19-2023 10:45-0500 Diastolic blood pressure 72 mm[Hg] Campbell Ball Other [employer] Other 02-19-2023 10:45-0500 Respiratory rate 12 /min Campbell Ball Other [employer] Other 02-19-2023 10:45-0500 Systolic blood pressure 144 mm[Hg] Campbell Ball Other [employer] Other 02-02-2023 13:37-0500 Body weight 102.06 kg Leticia Milian APRN.CELL BIOLOGY SCIENTIST Work Phone: [facility] 02-02-2023 13:37-0500 Diastolic blood pressure 70 mm[Hg] Leticia Milian COMMUNITY THEATER ACTORArmandoCELL BIOLOGY SCIENTIST Work Phone: [facility] 02-02-2023 13:37-0500 Heart rate 65 /min Leticia Milian COMMUNITY THEATER ACTOR.CELL BIOLOGY SCIENTIST Work Phone: [facility] 02-02-2023 13:37-0500 Systolic blood pressure 146 mm[Hg] Leticia Milian COMMUNITY THEATER ACTOR.CELL BIOLOGY SCIENTIST Work Phone: [facility] 09-22-2022 12:15-0400 Body height 190.5 cm Campbell Ball Other [employer] Other 09-22-2022 12:15-0400 Diastolic blood pressure 82 mm[Hg] Campbell Ball Other [employer] Other 09-22-2022 12:15-0400 Systolic blood pressure 135 mm[Hg] Campbell Ball Other [employer] Other 09-17-2022 09:00-0400 Body height 190.5 cm Campbell Ball Other [employer] Other 09-17-2022 09:00-0400 Body mass index (BMI) [Ratio] 27.57 kg/m2 Campbell Ball Other [employer] Other 09-17-2022 09:00-0400 Body weight 100.06 kg Campbell Ball Other [employer] Other 09-17-2022 09:00-0400 Diastolic blood pressure 62 mm[Hg] Campbell Ball Other [employer] Other 09-17-2022 09:00-0400 Respiratory rate 12 /min Campbell Ball Other [employer] Other 09-17-2022 09:00-0400 Systolic blood pressure 128 mm[Hg] Campbell Ball Other [employer] Other 06-18-2022 10:00-0400 Body height 190.5 cm Campbell Ball Other [employer] Other 06-18-2022 10:00-0400 Body mass index (BMI) [Ratio] 28.02 kg/m2 Campbell Ball Other [employer] Other 06-18-2022 10:00-0400 Body weight 101.7 kg Campbell Ball Other [employer] Other 06-18-2022 10:00-0400 Diastolic blood pressure 62 mm[Hg] Campbell Ball Other [employer] Other 06-18-2022 10:00-0400 Respiratory rate 12 /min Campbell Ball Other [employer] Other 06-18-2022 10:00-0400 Systolic blood pressure 119 mm[Hg] Campbell Ball Other [employer] Other 04-08-2022 12:00-0500 Body height 190.5 cm Campbell Ball Other [employer] Other 04-08-2022 12:00-0500 Body mass index (BMI) [Ratio] 27.82 kg/m2 Campbell Ball Other [employer] Other 04-08-2022 12:00-0500 Body temperature 97.1 [degF] Campbell Ball Other [employer] Other 04-08-2022 12:00-0500 Body weight 100.97 kg Campbell Ball Other [employer] Other 04-08-2022 12:00-0500 Diastolic blood pressure 68 mm[Hg] Campbell Ball Other [employer] Other 04-08-2022 12:00-0500 SaO2% (BldA) [Mass fraction] 97 % Campbell Ball Other [employer] Other 04-08-2022 12:00-0500 Systolic blood pressure 124 mm[Hg] Campbell Ball Other [employer] Other 03-20-2022 10:00-0500 Body height 190.5 cm Campbell Ball Other [employer] Other 03-20-2022 10:00-0500 Body mass index (BMI) [Ratio] 27.95 kg/m2 Campbell Ball Other [employer] Other 03-20-2022 10:00-0500 Body weight 101.42 kg Campbell Ball Other [employer] Other 03-20-2022 10:00-0500 Diastolic blood pressure 60 mm[Hg] Campbell Ball Other [employer] Other 03-20-2022 10:00-0500 Respiratory rate 12 /min Campbell Ball Other [employer] Other 03-20-2022 10:00-0500 Systolic blood pressure 112 mm[Hg] Campbell Ball Other [employer] Other 01-08-2022 08:47-0400 Body weight 97.52 kg Leonard Dugan MD Work Phone: [facility] 01-08-2022 08:47-0400 Diastolic blood pressure 61 mm[Hg] Leonard Dugan MD Work Phone: [facility] 01-08-2022 08:47-0400 Heart rate 72 /min Leonard Dugan MD Work Phone: [facility] 01-08-2022 08:47-0400 Systolic blood pressure 139 mm[Hg] Leonard Dugan MD Work Phone: [facility] 12-26-2021 08:32-0400 Body temperature 98 [degF] DO Campbell Ball Work Phone: [facility] 12-26-2021 08:32-0400 Diastolic blood pressure 62 mm[Hg] DO Campbell Ball Work Phone: [facility] 12-26-2021 08:32-0400 Heart rate 75 /min DO Campbell Ball Work Phone: [facility] 12-26-2021 08:32-0400 Respiratory rate 18 /min DO Campbell Ball Work Phone: [facility] 12-26-2021 08:32-0400 SaO2% (BldA) [Mass fraction] 98 % DO Campbell Ball Work Phone: [facility] 12-26-2021 08:32-0400 Systolic blood pressure 146 mm[Hg] DO Campbell Ball Work Phone: [facility] 12-17-2021 16:22-0400 Body height 190.5 cm DO Campbell Ball Work Phone: [facility] 12-17-2021 16:22-0400 Body weight 97.52 kg DO Campbell Ball Work Phone: [facility] 12-17-2021 16:19-0400 Body temperature 98.4 [degF] DO Campbell Ball Work Phone: [facility] 12-17-2021 16:19-0400 Diastolic blood pressure 63 mm[Hg] DO Campbell Ball Work Phone: [facility] 12-17-2021 16:19-0400 Heart rate 66 /min DO Campbell Ball Work Phone: [facility] 12-17-2021 16:19-0400 Respiratory rate 16 /min DO Campbell Ball Work Phone: [facility] 12-17-2021 16:19-0400 SaO2% (BldA) [Mass fraction] 96 % DO Campbell Ball Work Phone: [facility] 12-17-2021 16:19-0400 Systolic blood pressure 135 mm[Hg] DO Campbell Ball Work Phone: [facility] 12-16-2021 14:41-0400 Diastolic blood pressure 62 mm[Hg] Leonard Dugan MD Work Phone: [facility] 12-16-2021 14:41-0400 Heart rate 69 /min Leonard Dugan MD Work Phone: [facility] 12-16-2021 14:41-0400 Respiratory rate 16 /min Leonard Dugan MD Work Phone: [facility] 12-16-2021 14:41-0400 Systolic blood pressure 141 mm[Hg] Leonard Dugan MD Work Phone: [facility] 12-11-2021 18:25-0400 Body temperature 97.5 [degF] DO Campbell Ball Work Phone: [facility] 12-11-2021 18:25-0400 Diastolic blood pressure 88 mm[Hg] DO Campbell Ball Work Phone: [facility] 12-11-2021 18:25-0400 Heart rate 67 /min DO Campbell Ball Work Phone: [facility] 12-11-2021 18:25-0400 Respiratory rate 20 /min DO Campbell Ball Work Phone: [facility] 12-11-2021 18:25-0400 SaO2% (BldA) [Mass fraction] 99 % DO Campbell Ball Work Phone: [facility] 12-11-2021 18:25-0400 Systolic blood pressure 175 mm[Hg] DO Campbell Ball Work Phone: [facility] 12-11-2021 16:57-0400 Body height 190.5 cm DO Campbell Ball Work Phone: [facility] 12-11-2021 16:57-0400 Body weight 98.5 kg DO Campbell Ball Work Phone: [facility] 12-10-2021 10:50-0400 Body weight 95.25 kg Nurse Emelia Work Phone: [facility] 12-10-2021 10:50-0400 Diastolic blood pressure 80 mm[Hg] Nurse Emelia Work Phone: [facility] 12-10-2021 10:50-0400 Heart rate 59 /min Nurse Emelia Work Phone: [facility] 12-10-2021 10:50-0400 Systolic blood pressure 152 mm[Hg] Nurse Emelia Work Phone: [facility] 12-09-2021 14:27-0400 Body weight 95.25 kg [employer] [place] Work Phone: [facility] 12-09-2021 14:27-0400 Diastolic blood pressure 68 mm[Hg] [employer] [place] Work Phone: [facility] 12-09-2021 14:27-0400 Heart rate 70 /min [employer] [place] Work Phone: [facility] 12-09-2021 14:27-0400 Systolic blood pressure 164 mm[Hg] [employer] [place] Work Phone: [facility] 11-12-2021 11:23-0400 Body weight 96.16 kg Lenoard Dugan MD Work Phone: [facility] 11-12-2021 11:23-0400 Diastolic blood pressure 73 mm[Hg] Leonard Dugan MD Work Phone: [facility] 11-12-2021 11:23-0400 Heart rate 56 /min Leonard Dugan MD Work Phone: [facility] 11-12-2021 11:23-0400 Systolic blood pressure 162 mm[Hg] Leonard Dugan MD Work Phone: [facility] Encounters Encounter Date Encounter Type Care Provider Facility Start: 12-17-2023 End: 12-17-2023 Bamboo flowsheet Sterling Zamudio DO Work Phone: [facility] Start: 12-17-2023 End: 12-17-2023 Bamboo flowsheet Sterling Zamudio DO Work Phone: [facility] Start: 12-17-2023 End: 12-17-2023 Clinisync Result Encounter Sterling Sanderson Lizz DO Work Phone: [facility] External Department Unsolicited Start: 12-17-2023 End: 12-17-2023 ambulatory Sterling Zamudio [place]: 12-17-2023 End: 12-17-2023 Patient encounter procedure Sterilng Zamudio [facility] Start: 12-17-2023 End: 12-17-2023 ambulatory STERLING ZAMUDIO Not Available Start: 12-15-2023 End: 12-15-2023 ambulatory [facility] Work Phone: Start: 12-15-2023 End: 12-15-2023 Patient encounter procedure [facility] Work Phone: Start: 09-23-2023 End: 09-23-2023 ambulatory DO Campbell Naranjo Work Phone: [facility] Work Phone: Start: 09-23-2023 End: 09-23-2023 Patient encounter procedure DO Campbell Ball Work Phone: [facility] Work Phone: Start: 08-04-2023 End: 08-04-2023 ambulatory LETICIA MILIAN Facility:[facility] Start: 08-04-2023 Non-patient / Non-visit DO Lenin Naranjo Work Phone: [facility] Work Phone: Start: 08-04-2023 End: 08-04-2023 Patient encounter procedure Leticia Milian APRN.CELL BIOLOGY SCIENTIST Work Phone: Urology Comment on above: Benign prostatic hyp erplasia, unspecified whether lower urinary tract symptoms present (Primary Dx); Recurrent UTI; Nocturia Start: 07-26-2023 End: 07-26-2023 ambulatory CAMPBELL Dakota BALL Facility:[facility] Start: 07-26-2023 Non-patient / Non-visit DO Lenin frank Ball Work Phone: [facility] Work Phone: Start: 07-22-2023 End: 07-22-2023 ambulatory Jhon Sanderson [facility] Facility:[facility] Start: 07-22-2023 End: 07-22-2023 ambulatory DO Campbell Ball Work Phone: [facility] Work Phone: Start: 07-22-2023 End: 07-22-2023 Departed Referred DO Campbell Ball Work Phone: [facility] Start: 07-22-2023 Non-patient / Non-visit DO Lenin Naranjo Work Phone: [facility] Work Phone: Start: 07-12-2023 End: 07-12-2023 ambulatory Jhon Sanderson [facility] Facility:[facility] Start: 07-12-2023 End: 07-12-2023 ambulatory DO Campbell Ball Work Phone: [facility] Work Phone: Start: 07-12-2023 End: 07-12-2023 Departed Referred DO Campbell Ball Work Phone: [facility] Start: 07-09-2023 End: 07-09-2023 ambulatory DO Campbell Ball Work Phone: [facility] Work Phone: Start: 07-09-2023 End: 07-09-2023 Patient encounter procedure DO Campbell Ball Work Phone: [facility] Work Phone: Start: 07-06-2023 Non-patient / Non-visit DO Lenin monika Ball Work Phone: [facility] Work Phone: Start: 06-23-2023 End: 06-23-2023 ambulatory DO Campbell Ball Work Phone: [facility] Work Phone: Start: 06-23-2023 End: 06-23-2023 Patient encounter procedure DO Campbell Ball Work Phone: [facility] Work Phone: Start: 05-31-2023 Non-patient / Non-visit DO Lenin frank Ball Work Phone: [facility] Work Phone: Start: 05-21-2023 End: 05-21-2023 Patient encounter procedure DO Campbell Ball Work Phone: [facility] Work Phone: Start: 05-15-2023 End: 05-15-2023 Emergency department patient visit Low Kaylin Carter Facility:[facility] Start: 05-15-2023 End: 05-15-2023 Emergency department patient visit DO Campbell Ball Work Phone: [facility] Work Phone: Start: 05-03-2023 Non-patient / Non-visit DO Lenin haleyin Ball Work Phone: [facility] Work Phone: Start: 04-30-2023 Non-patient / Non-visit DO Lenin monika Ball Work Phone: [facility] Work Phone: Start: 04-21-2023 End: 04-21-2023 ambulatory Campbell Ball Other [facility] Other Start: 04-21-2023 Transitional care manage srvc 14 day discharge Campbell Naranjo [facility] Start: 04-19-2023 End: 04-19-2023 ambulatory Campbell Naranjo Other [facility] Other Start: 04-19-2023 Telephone encounter Campbell SINGH [facility] Start: 04-15-2023 End: 04-15-2023 ambulatory Campbell Naranjo Other [facility] Other Start: 04-15-2023 Telephone encounter Campbell SINGH [facility] Start: 03-17-2023 End: 03-17-2023 ambulatory Campbell Naranjo Other [facility] Other Start: 03-17-2023 Transitional care manage srvc 14 day discharge Campbell Naranjo [facility] Start: 03-04-2023 End: 03-04-2023 ambulatory Campbell Naranjo Other [facility] Other Start: 03-04-2023 Telephone encounter Campbell SINGH G [facility] Start: 02-23-2023 End: 02-23-2023 ambulatory Campbell Naranjo Other [facility] Other Start: 02-23-2023 Office outpatient vi sit 15 minutes Campbell Naranjo [facility] Start: 02-23-2023 Telephone encounter Campbell SINGH G [facility] Start: 02-19-2023 End: 02-19-2023 ambulatory Campbell Naranjo Other [facility] Other Start: 02-19-2023 Office outpatient vi sit 15 minutes Campbell Naranjo [facility] Start: 02-02-2023 End: 02-02-2023 ambulatory CAMPBELL NARANJO Facility:[facility] Start: 02-02-2023 End: 02-02-2023 Patient encounter procedure Leticia Milian APRN.CELL BIOLOGY SCIENTIST Work Phone: Urology Comment on above: BPH with obstruction /lower urinary tract symptoms (Primary Dx); Recurrent UTI; Weak urinary stream Start: 01-19-2023 End: 01-19-2023 ambulatory CAMPBELL NARANJO Facility:[facility] Start: 01-13-2023 End: 01-13-2023 Emergency department patient visit Low Carter Facility:[facility] Start: 01-13-2023 End: 01-13-2023 Emergency department patient visit DO Campbell Naranjo Work Phone: [facility] Work Phone: Start: 12-21-2022 End: 12-21-2022 ambulatory Campbell Naranjo Other [facility] Other Start: 12-21-2022 Telephone encounter Campbell SINGH [facility] Start: 09-22-2022 End: 09-22-2022 ambulatory Campbell Naranjo Other [facility] Other Start: 09-22-2022 Office outpatient vi sit 15 minutes Campbell Naranjo [facility] Start: 09-20-2022 End: 09-20-2022 ambulatory Cornell Baptiste Other [facility] Other Start: 09-20-2022 Encounter by Apps[employer] raissa Baptiste [facility] Start: 09-17-2022 End: 09-17-2022 ambulatory Campbell Naranjo Other [facility] Other Start: 09-17-2022 Office outpatient vi sit 25 minutes Campbell Naranjo [facility] Start: 09-15-2022 End: 09-15-2022 ambulatory Cornell Baptiste Other [facility] Other Start: 09-15-2022 Encounter by Apps[employer] raissa Baptiste [facility] Start: 06-25-2022 End: 06-26-[address] CAMPBELL NARANJO Facility: Start: 06-18-2022 End: 06-18-2022 ambulatory Campbell Naranjo Other [facility] Other Start: 06-18-2022 Office outpatient vi sit 25 minutes Campbell Naranjo [facility] Start: 06-02-2022 End: 06-03-[address] CAMPBELL NARANJO Facility:[facility] Start: 04-08-2022 End: 04-08-2022 ambulatory Campbell Naranjo Other [facility] Other Start: 04-08-2022 Office outpatient vi sit 15 minutes Campbell Naranjo [facility] Start: 03-24-2022 End: 03-24-2022 ambulatory Campbell Naranjo Other [facility] [facility] Other Start: 03-24-2022 Telephone encounter Campbell Naranjo [facility] Start: 03-20-2022 Office outpatient vi sit 25 minutes Campbell Naranjo [facility] Start: 03-20-2022 End: 03-21-[address] CAMPBELL NARANJO [facility] Other Start: 01-08-2022 End: 01-08-2022 Patient encounter procedure Leonard Dugan MD Work Phone: Urology Comment on above: Chronic epididymitis (Primary Dx); Left hydrocele; Weak urinary stream; BPH without obstruction/lower urinary tract symptoms; Epididymitis Start: 01-07-2022 Refill Leonard Dugan MD Work Phone: Urology Comment on above: Refill Request Start: 12-26-2021 End: 12-26-2021 ambulatory DO Campbell Naranjo Work Phone: [facility] Work Phone: Start: 12-26-2021 End: 12-26-2021 Discharged Recurring DO Campbell Naranjo Work Phone: [facility]Infusion Therapy - O/P Start: 12-25-2021 End: 12-26-[address] CAMPBELL NARANJO Facility:[facility] Start: 12-17-2021 End: 12-17-2021 Emergency department patient visit DO Campbell Naranjo Work Phone: [facility] Start: 12-16-2021 End: 12-16-2021 Patient encounter procedure Leonard Dugan MD Work Phone: Urology Comment on above: Retention of urine ( Primary Dx); Flaccid bladder Start: 12-15-2021 Telephone encounter Leticia trentnanci CELL BIOLOGY SCIENTIST Work Phone: Urology Comment on above: Patient Update Start: 12-11-2021 End: 12-11-2021 Emergency department patient visit DO Campbell Naranjo Work Phone: [facility] Start: 12-11-2021 Telephone encounter Leonard Dugan MD Work Phone: Urology Comment on above: Patient Update Start: 12-10-2021 End: 12-10-2021 Nursing evaluation of patient and report Nurse Urol [facility] Work Phone: Urology Comment on above: Urinary tract infect ion without hematuria, site unspecified (Primary Dx); Feeling of incomplete bladder emptying; Benign prostatic hyperplasia with urinary retention Start: 12-09-2021 End: 12-09-2021 Nursing evaluation of patient and report [facility] Work Phone: Urology Comment on above: Urinary frequency (P rimary Dx); Urinary urgency; Urinary straining; Feeling of incomplete bladder emptying Start: 12-08-2021 Telephone encounter Leonard Dugan MD Work Phone: Urology Comment on above: Appointment (Resched ule catheter change) Start: 11-26-2021 End: 11-27-2021 Emergency department patient visit CAMPBELL NARANJO Facility:[facility] Start: 11-21-2021 Telephone encounter Leonard [...] Emergency department patient visit RAN LEES JR Facility:[facility] Start: 10-23-2021 End: 10-24-[address] CAMPBELL NARANJO Facility:[facility] Start: 10-21-2021 End: 10-22-[address] CAMPBELL NARANJO Facility:[facility] Start: 10-20-2021 Adult health examination Campbell Naranjo Other [facility] Other Start: 07-17-2021 End: 07-18-[address] CAMPBELL NARANJO Facility:[facility] Start: 01-09-2020 End: 01-09-2020 Pre-procedure evaluation check Campbell Naranjo Other [facility] Other Procedures Date Procedure Procedure Detail Performing Clinician Start: 12-17-2023 End: 12-17-2023 Computerized ophthalmic imaging optic nerve Sterling Zamudio DO Work Phone: Start: 12-17-2023 [facility] [place] Sterling Zamudio DO Work Phone: Start: 12-17-2023 End: 12-17-2023 Oph medical xm&eval comprhnsv estab pt 1/> 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 2 diabetes mellitus (CMS/HCC) Sterling Zamudio DO Work Phone: Comment on above: Mild nonproliferative diabetic retinopat hy of both eyes without macular edema associated with type 2 diabetes mellitus (CMS/HCC) (Primary Dx); 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 of both eyes; Optic atrophy; Dry eyes; Blepharitis of upper and lower eyelids of both eyes, unspecified type Start: 07-26-2023 Urinalysis DO Campbell Naranjo Work Phone: Start: 07-26-2023 Urine culture DO Campbell Quentin Work Phone: Start: 05-15-2023 Duplex scan of lower limb veins DO Campbell Naranjo Work Phone: Start: 10-14-2021 Depression screening Campbell Naranjo Other Start: 10-03-2019 Transurethral prostatectomy Sterling Zamudio Start: 09-20-2019 Transurethral prostatectomy Sterling Zamudio Start: 07-27-2019 Cystourethroscopy with dilation of urethral stricture Sterling Malhotramarlinebrandon Start: 03-23-2016 Screening for malignant neoplasm of colon Campbell Naranjo Other Start: 01-30-2015 Screening for malignant neoplasm of prostate Campbell Naranjo Other Appendectomy Sterling Lizz Extraction of cataract Cora jay Zamudio Tonsillectomy Sterling haji Urine culture DO Campbell Ba ll Work Phone: Urine culture DO Campbell Ba ll Work Phone: Urine culture DO Campbell Ba ll Work Phone: Plan of Treatment Date Care Activity Detail Author Start: 07-25-2026 Diabetes Screening Diabetes Screenin [facility] Start: 03-22-2024 End: 03-22-2024 Patient encounter procedure 03/22/2024 11:15 AM EST Office Visit [facility] [address] [place] [address] Sterling Zamudio DO [address] [place] [address] [facility] Start: 02-08-2024 End: 02-08-2024 Patient encounter procedure 02/08/2024 8:30 AM EST Office Visit Urology [address] [place] [address] Leticia Milian, COMMUNITY THEATER ACTOR.CELL BIOLOGY SCIENTIST [address] [place] [address] Return in about 6 months (around 02/04/2024) for rto for evalution of BPH w obs/luts, UTI AUA, PVR . Urology Comment on above: Return in about 6 mo nths (around 02/04/2024) for rto for evalution of BPH w obs/luts, UTI AUA, PVR . Start: 12-17-2023 End: 12-17-2023 Patient encounter procedure 12/17/2023 9:30 AM EDT Office Visit [facility] [address] [place] [id number] Sterling Zamudio, [address] [place] [address] Arrived [facility] Comment on above: Arrived Start: 11-14-2023 Influenza vaccination Influenza Vacc ine (#1) [facility] Start: 03-15-2023 Advance Directive Discussion Advance Directive Discussion [facility] Start: 03-15-2023 Behavioral Health Screening Behavioral Health Screening [facility] Start: 12-28-2022 Urine microalbumin profile DTaP,Tdap,Td Vaccine (3 - Tdap) [facility] Start: 11-13-2022 Covid-19 Vaccine ( season) Covid-19 Vaccine ( season) [facility] Start: 03-15-2022 Advance Directive Discussion Advance Directive Discussion [facility] Start: 03-15-2022 Depression Assessment Depression Ass essment [facility] Start: 01-08-2022 End: 03-10-2022 Bacteria identified in Urine by Culture URINE CULTURE Microbiology Routine Left hydrocele Chronic epididymitis Weak urinary stream BPH without obstruction/lower urinary tract symptoms Epididymitis Expected: 01/08/2022 (Approximate), Expires: 03/10/2022 [facility] Work Phone: Comment on above: Expected: 01/08/2022 (Approximate), Expires: 03/10/2022 Start: 01-08-2022 End: 03-10-2022 URINALYSIS, REFLEX MICROSCOPIC URINALYSIS, REFLEX MICROSCOPIC Lab Routine Left hydrocele Chronic epididymitis Weak urinary stream BPH without obstruction/lower urinary tract symptoms Epididymitis Expected: 01/08/2022 (Approximate), Expires: 03/10/2022 [facility] Work Phone: Comment on above: Expected: 01/08/2022 (Approximate), Expires: 03/10/2022 Start: 12-10-2021 End: 02-09-2022 Bacteria identified in Urine by Culture URINE CULTURE Microbiology Routine Urinary tract infection without hematuria, site unspecified Expected: 12/10/2021, Expires: 02/09/2022 [facility] Work Phone: Comment on above: Expected: 12/10/2021 , Expires: 02/09/2022 Start: 11-13-2021 Influenza vaccination INFLUENZA (#1) [facility] Start: 11-12-2021 URODYNAMICS URODYNAMICS Pr ocedures Routine 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 Expected: 11/12/2021 (Approximate) [facility] Work Phone: Comment on above: Expected: 11/12/2021 (Approximate) Start: 08-11-2021 COVID-19 VACCINE (5 - Booster for Pfizer series) COVID-19 VACCINE (5 - Booster for Pfizer series) [facility] Start: 03-15-2021 ADVANCE DIRECTIVE DISCUSSION ADVANCE DIRECTIVE DISCUSSION [facility] Start: 03-15-2021 DEPRESSION ASSESSMENT DEPRESSION ASS ESSMENT [facility] Start: 05-26-2012 3 comp foot exam completed DIABETIC FOOT EXAM [facility] Start: 05-17-2012 Pneumococcal Vaccine : 65+ Years (2 of 2 - PCV) Pneumococcal Vaccine: 65+ Years (2 of 2 - PCV) [facility] Start: 1998 Hepatitis B Vaccine (1 of 3 - Risk 3-dose series) Hepatitis B Vaccine (1 of 3 - Risk 3-dose series) [facility] Start: 1998 RSV Vaccine (1 - 1-d ose 60+ series) RSV Vaccine (1 - 1-dose 60+ series) [facility] Start: 1988 SHINGRIX VACCINE (1 of 2) SHINGRIX VACCINE (1 of 2) [facility] Start: 1957 Urine microalbumin profile DTAP,TDAP,TD (1 - Tdap) [facility] Start: 1956 Hepatitis B surface antibody level LDL CHOLESTEROL [facility] Start: 1948 Hepatitis B screening URINE ALBUMIN:CREATININE RATIO [facility] Start: 1948 Hepatitis C antibody , confirmatory test DILATED RETINAL EXAM [facility] Start: 1944 PNEUMOCOCCAL: 65+ (1 - PCV) PNEUMOCOCCAL: 65+ (1 - PCV) [facility] Start: 1943 Hemoglobin A1c/Hemoglobin.total in Blood HBA1C [facility] Bacteria identified in Urine by Culture [facility] End: 02-02-2024 Bacteria identified in Urine by Culture URINE CULTURE Microbiology Routine Recurrent UTI 5 Occurrences starting 02/02/2023 until 02/02/2024 [facility] Work Phone: Comment on above: 5 Occurrences starti ng 02/02/2023 until 02/02/2024 Patient Education [facility] Work Phone: Patient referral [facility] Work Phone: End: 01-14-2024 Urinalysis complete panel - Urine URINALYSIS, WITH MICROSCOPIC Lab Routine Recurrent UTI 5 Occurrences starting 02/02/2023 until 01/14/2024 [facility] Work Phone: Comment on above: 5 Occurrences starti ng 02/02/2023 until 01/14/2024 [facility] Immunizations Immunization Date Immunization Notes Care Provider [place] 12-01-2022 influenza virus vaccine, unspecified formulation DO Campbell Naranjo Work Phone: [facility] 12-01-2022 influenza, high dose seasonal, preservative-free Campbell Naranjo Other [facility] Other 12-19-2021 influenza virus vaccine, split virus (incl. purified surface antigen) Campbell Naranjo Other [facility] Other 12-19-2021 influenza virus vaccine, unspecified formulation DO Campbell Naranjo Work Phone: [facility] 12-10-2020 influenza virus vaccine, split virus (incl. purified surface antigen) Campbell Naranjo Other [facility] Other 12-10-2020 influenza virus vaccine, unspecified formulation DO Campbell Naranjo Work Phone: [facility] 01-09-2020 influenza virus vaccine, split virus (incl. purified surface antigen) Campbell Naranjo Other [facility] Other 01-09-2020 influenza virus vaccine, unspecified formulation DO Campbell [employer] Work Phone: [facility] 01-23-2019 influenza virus vaccine, live, attenuated, for intranasal use Sterling Zamudio [facility] 01-14-2018 influenza virus vaccine, split virus (incl. purified surface antigen) Campbell Naranjo Other [facility] Other 01-14-2018 influenza virus vaccine, unspecified formulation DO Campbell Naranjo Work Phone: [facility] 12-30-2016 influenza virus vaccine, split virus (incl. purified surface antigen) Campbell Naranjo Other [facility] Other 12-30-2016 influenza virus vaccine, unspecified formulation DO Campbell Naranjo Work Phone: [facility] 03-16-2016 influenza virus vaccine, split virus (incl. purified surface antigen) Campbell Naranjo Other [facility] Other 03-16-2016 influenza virus vaccine, unspecified formulation DO Campbell Naranjo Work Phone: [facility] 05-01-2015 pneumococcal conjuga te vaccine, 13 valent Campbell [employer] Other [facility] 05-01-2015 pneumococcal Conjuga te, unspecified formulation; Translations: [Need for prophylactic vaccination against Streptococcus pneumoniae (pneumococcus)] Campbell Naranjo Other [facility] Other 12-28-2012 tetanus and diphther ia toxoids, adsorbed, preservative free, for adult use (5 Lf of tetanus toxoid and 2 Lf of diphtheria toxoid) Campbell Naranjo Other [facility] 01-28-2012 diphtheria, tetanus toxoids and acellular pertussis vaccine, unspecified formulation Campbell Naranjo Other [facility] 01-20-2012 pneumococcal polysaccharide vaccine, 23 valent Campbell Naranjo Other [facility] 05-18-2011 pneumococcal polysaccharide vaccine, 23 valent Campbell Naranjo Other [facility] Payers Date Payer Category Payer Self-pay 2016 Unknown KRISTIN FOSTER [employer] DICARE SUPPLEMENT [id number] 2016-Present [phone] [address] [place] [address] Indemnity [id number] 2003 Medicare [id number] 1959 Medicare [id number] 1959 Medicare [id number] 1938 Unknown [id number] 3 1938 Unknown [id number] 3 1938 Unknown [id number] 3 1938 Unknown [id number] 3 1938 Unknown [id number] 3 1938 Unknown [id number] 3 1938 Unknown [id number] 3 1938 Unknown [id number] 3 1938 Unknown [id number] 59 1938 Unknown [id number] 7 Medicare Medicare Outpatient [id number] [id number] Unknown [facility] [id number] Unknown [id number] 1 Unknown [id number] 1 Unknown [id number] 1 Unknown [id number] 1 Social History Date Type Detail Facility Start: 10-24-2009 End: 12-16-2021 Tobacco smoking status NHIS Ex-smoker [facility] End: 03-15-1971 History of tobacco use Current smoker [facility] End: 03-15-1971 History of tobacco use Cigarette Smoker [facility] Start: 10-24-2009 End: 07-28-2022 Cigarettes smoked current (pack per day) - Reported 1.5 [facility] Start: 11-07-2021 End: 12-17-2023 Alcohol intake Current drinker of alcohol (finding) [facility] Start: 1940 Sex Assigned At Not on file [facility] Start: 10-28-2021 End: 01-08-2022 Exposure to SARS-CoV-2 (event) Not sure [facility] Start: 12-11-2021 End: 03-29-2023 Tobacco smoking status NHIS Never smoked tobacco (finding) [facility] Start: 1940 Sex Assigned At Male [facility] Start: 12-16-2021 End: 03-29-2023 Tobacco use and exposure Smokeless tobacco non-user [facility] Start: 12-16-2021 End: 07-28-2022 Sex Assigned At Sanitors [facility] National Score (1-10 0), lower number is lower risk 61 [facility] Start: 03-29-2023 Alcohol Comment 2-3 times a week. [facility] Start: 12-16-2023 Sexual orientation Heterosexual (finding) [facility] Medical Equipment Procedure Code Equipment Code Equipment Origin al Text Equipment Identifier Dates [id number], [id number] Start: 10-23-2021 End: 08-04-2023 Comment on above: TEST HOME BLOOD SUGA R ONCE A DAY USE TO TEST HOME BLO OD SUGAR ONCE A DAY Clinical Notes 11-10-2021 to 12-17-2023 Sterling Zamudio, - 12/17/2023 9:30 AM Leticia Lynch, JOAQUIN.CELL BIOLOGY SCIENTIST - 08/04/2023 8:58 AM EDT Note Date & Type Note Facility 12-17-2023 Note Right Eye Quality was good. Scan locations included subfoveal. Progression has been stable. Findings include normal observations. Left Eye Quality was good. Scan locations included subfoveal. Progression has been stable. Findings include normal observations. Notes Good scan with normal appearance [facility] 12-17-2023 History of Present illness Narrative Images from the original note were not included. Assessment/Plan Diagnoses and all orders for this visit: 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 2 diabetes mellitus (CMS/HCC) - Diabetes Mellitus with signs of diabetic retinopathy on dilated retinal examination today OU: Discussed the pathophysiology of diabetes and its effect on the eye. Stressed the importance of strong glucose control. Advised of importance of at least yearly dilated examinations, but to contact us immediately for any problems or concerns. Continue aggressive control of the blood sugar, blood pressure and cholesterol. 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 of both eyes - ARMD OU, dry. Importance of smoking cessation, blood pressure control, and healthy diet were emphasized. Patient was advised to consider ultraviolet-B blocking sunglasses. In accordance with the AREDS study, appropriate antioxidant and mineral supplements were prescribed. Patient was instructed to self monitor their monocular vision (reading/Amsler Grid) at least weekly. Patient should immediately report any new onset of decreased vision or metamorphopsia. Optic atrophy - Unclear source. Today's exam presented with decreased vision in left eye (OS). Check GCA labs. Dry eyes - Dry Eyes OU -- Environmental changes to minimize dryness and exposure and the use of artificial tears were recommended. Blepharitis of upper and lower eyelids of both eyes, unspecified type - Blepharitis, posterior type OU - The patient exhibits inspissated meibomian glands. Warm compresses, lid massage and lid scrubs were recommended. documented in this encounter [facility] 08-04-2023 Note HNO ID: [id number] Author: LETICIA MILIAN APRN.CELL BIOLOGY SCIENTIST Service: ? Author Type: Nurse Practitioner Type: Progress Notes Filed: 08/04/2023 09:23 Note Text: Norberto Washington [address] [facility] [address] HISTORY OF PRESENT ILLNESS: Seen 02/02/23 for [...] finding today 08/04/23) Pt is presently on oil heaterman antibiotic due to infection in toes that went to bone Stated that urinary symptoms have resolved with treatment. PVR=36 ML UA 07/26/23=trace leuk esterase Culture 07/26/23=<10,000 CFU/ml Lactose positive gram negative bacilli Abnormal A1C 07/26/23=6.4 Location: BPH w obs/luts, UTI Pain Character: none Severity Scale: see AUA score, see lab Duration: BPH w obs/luts, UTI [facility] SYMPTOMS SCORE. 1. INCOMPLETE EMPTYING [...] order for urin (more content not included)... [facility] 08-04-2023 History of Present illness Narrative Norberto Mccoy Washington [address] [facility] [address] HISTORY OF PRESENT ILLNESS: Seen 02/02/23 for [...] finding today 08/04/23) Pt is presently on oil heaterman antibiotic due to infection in toes that went to bone Stated that urinary symptoms have resolved with treatment. PVR=36 ML UA 07/26/23=trace leuk esterase Culture 07/26/23=<10,000 CFU/ml Lactose positive gram negative bacilli Abnormal A1C 07/26/23=6.4 Location: BPH w obs/luts, UTI Pain Character: none Severity Scale: see AUA score, see lab Duration: BPH w obs/luts, UTI [facility] SYMPTOMS SCORE. 1. INCOMPLETE EMPTYING [...] Making Level: 4 - Moderate Leticia Milian APRN.CELL BIOLOGY SCIENTIST documented in this encounter [facility] 04-21-2023 Evaluation note Encounter Date Diagnosis Assessment [...] - recommend Picc line and IV antibiotics Pinstant Karma Other 01-03-2024 Evaluation note* Encounter Date Diagnosis [...] to restart Amlodipine. Continue PAUL for now. Pinstant Karma Other 12-12-2023 Evaluation note* Encounter Date Diagnosis [...] and inserts to prevent callus formation.Fall precautions. Pinstant Karma Other 12-08-2023 Evaluation note* Encounter Date Diagnosis [...] ulcers. Recommend routine foot care w/ Podiatry Pinstant Karma Other 11-21-2023 NoteHNO ID: [id number] Author: Leticia Milian APRN.CELL BIOLOGY SCIENTIST Service: ? Author Type: Nurse Practitioner Type: Progress Notes Filed: 02/02/2023 2:13 PM Note Text: Norberto Washington [address] [facility] [address] HISTORY OF PRESENT ILLNESS: Seen 07/28/22 for [...] see lab Duration: BPH w obs/luts, UTI [facility] SYMPTOMS SCORE. 1. INCOMPLETE EMPTYING [...] only if s (more content not included)... [facility] [id number] Miscellaneous Notes* Addendum Note - Leticia Milian APRN.CNP - 02/02/2023 2:16 PM ESTAddended by: LETICIA MILIAN on: 02/02/2023 02:16 PM Modules accepted: Orders documented [facility] History of Present illness Narrative* Leticia Milian APRN.CNP - 02/02/2023 1:40 PM EST Norberto Washington [address] [place] [address] HISTORY OF PRESENT ILLNESS: Seen 07/28/22 for [...] see lab Duration: BPH w obs/luts, UTI [facility] SYMPTOMS SCORE. 1. INCOMPLETE EMPTYING [...] Making Level: 4 - Moderate Leticia Milian APRN.CELL BIOLOGY SCIENTIST documented in this [facility] Evaluation note* Encounter Date Diagnosis [...] w/ acute infection Requires no additional treatment Pinstant Karma Other 07-06-2023 Evaluation note* Encounter Date Diagnosis [...] exercise for 30 minutes, 3-5 times weekly. Pinstant Karma Other 04-06-2023 Evaluation note* Encounter Date Diagnosis [...] w/ antibiotics and treatment of urinary retention Pinstant Karma Other 03-21-2023 NotePROCEDURE: XR FOOT LT MIN [...] Electronically authenticated by: SAMY TORRES Date: 2022-06-02 15:48[facility]03-21-2023 NotePROCEDURE: XR FOOT LT MIN 3 [...] Electronically authenticated by: SAMY TORRES Date: 2022-06-02 15:48[facility]01-25-2023 Evaluation note* Encounter Date Diagnosis Assessment [...] lesion was treated w/ cryotherapy w/o complications Pinstant Karma Other 01-06-2023 Evaluation note* Encounter Date Diagnosis [...] Mar, Hesitancy of micturition (ICD-10 - R39.11) Pinstant Karma Other 10-27-2022 History of Present illness Narrative* Zuleika Hackett - 01/08/2022 8:20 AM EDT Norberto Washington [address] [id number] Mr. Washington presents with chief complaints of: Enlarged L testicle. ED 11/07/21: PVR 179 cc, refused a catheter, scheduled to undergo a cystoscopy in [place] but was cancelled due to his urologist [...] epididymitis Hydroceles: None Spermatoceles: None Varicoceles: None [facility] SYMPTOMS SCORE. Date 01/08/2022 1. [...] scheduled -UA and culture prior OV with [employer]ER Leticia By signing my name below, I, [...] Leonard Dugan M.D. documented in this encounter[facility] Hospital Discharge instructions Additional Instructions Continue taking Flomax as prescribed Avoid drinking any fluids several hours before bed Call your urologist tomorrow for a follow-up appointment Return if you are unable to urinate, develop blood in your urine, abdominal pain, [facility] Work Phone: [phone] 630-904010-04-2022 History of Present illness Narrative* Leonard Dugan MD - 12/16/2021 2:51 PM EDT Norberto Washington [address] [facility] [address] HISTORY OF PRESENT ILLNESS: ED 11/07/21: PVR 179 cc, refused a catheter, scheduled to undergo a cystoscopy in [place] but was cancelled due to his urologist [...] Otherwise, intermittent catheterization. Agreed indwelling catheter 18 croatian. Flomax will not work, no prostate tissue [...] well resected prostate (had 2 TURP) in [place] PLAN: (Management Options): -Start Flomax one cap [...] Leonard Dugan MD documented in this encounterMet[facility]-2022 Miscellaneous Notes* Telephone Encounter - Valente Bell LPN - 12/15/2021 3:58 PM EDT Called and spoke to patient regarding message below. Patient states understanding to information provided. No further action required at this time. * Telephone Encounter - Leticia Milian APRN.CNP - 12/15/2021 10:13 AM EDT Please call and confirm that pt received [facility] message to start new script sent for antibiotic. Thanks Leticia MONDRAGON documented in this encounterMet[facility]09-29-2022 Miscellaneous Notes* Telephone Encounter - [...] draining normally now. documented in this encounterMet[facility]09-28-2022 Nurse Note* Stepahnie Kaur RN - 12/10/2021 11:53 AM EDT [...] with urinary retention documented in this encounterMet[facility]09-27-2022 History of Present illness Narrative* Leonard Dugan MD - 12/09/2021 5:05 PM EDT [facility] [...] Leonard Dugan MD documented in this encounterMet[facility]09-27-2022 Nurse Note* Stephanie Kaur RN - 12/09/2021 3:57 PM EDT [facility] [...] incomplete bladder emptying documented in this encounterMet[facility]09-26-2022 Miscellaneous Notes* Telephone Encounter - Stephanie Kaur RN - 12/08/2021 4:11 PM EDT LM for patient to reschedule catheter change for tomorrow. Last changed 11/26/21 in ED. Will be due for change on 12/23/21. Stephanie Kaur R.N. documented in this encounterMet[facility]09-12-2022 Miscellaneous Notes* Telephone Encounter - [...] but it has not, urine is between Leedey tint & Brown and he does see small clots. Patient does have pain at the end of his Penis slight swelling noted (he has been applying Neosporin) Denies difficulty with urine draining into Hamilton bag, he does not have back pain Please advise documented in this encounterMet[facility]08-31-2022 Nurse Note* Stephanie Kaur RN [...] visit @ 1122 , by Stephanie Kaur RArmandoNArmando Current pain intensity is 0 on a [...] Education Session: None Instruction Provided To: Patient Accounting Instructor Present: not applicable Discipline: Nursing Learning Topic: [...] Stephanie Kaur RN documented in this encounterMet[facility]08-31-2022 Procedure note* Leonard Dugan MD - 11/12/2021 11:00 AM EDTProcedure(s): CYSTOSCOPY Pre-Procedure Diagnose(s): BPH with obstruction/lower urinary tract symptoms Post-Procedure Diagnose(s): BPH with obstruction/lower urinary tract symptoms PROCEDURE: CYSTOSCOPY INDICATIONS: ED 11/07/21: PVR 179 cc, refused a catheter, scheduled to undergo a cystoscopy in [place] but was cancelled due to his urologist [...] Otherwise, intermittent catheterization. Agreed indwelling catheter 18 croatian. By signing my name below, IZuleika, attest [...] complete. Leonard Kailee, M.D. documented in this encounterMet[facility]08-29-2022 History of Present illness Narrative* Leonard Dugan MD - 11/10/2021 12:11 PM EDT Cysto with uroflow 11-12-21 ED 11/07/21: PVR 179 cc, refused a catheter, scheduled to undergo a cystoscopy in [place] but was cancelled due to his urologist was sick Pt underwent TURP x2 within a week AUA= 3-5 wach ROSAMARIA 11/10/21 - 10 gm, rubbery, no nodules US 11/07/21:= mildly complex renal cysts UA and culture 11-07-21= -ve May need UDS based on cysto [facility] + Plan note No data available for this section [facility] Evaluation note* Diagnosis BPH with obstruction/lower urinary tract symptoms- Primary Hypertrophy of prostate with urinary obstruction and other lower urinary tract symptoms (LUTS) Benign prostatic hyperplasia with urinary retention [facility] this encounter [facility]* Diagnosis Urinary frequency- Primary Urinary urgency Urgency of urination Urinary straining Straining on urination Feeling of incomplete bladder emptying Incomplete bladder emptying documented in this encounter [facility]* Diagnosis Urinary tract infection without hematuria, site unspecified- Primary Feeling of incomplete bladder emptying Incomplete bladder emptying Benign prostatic hyperplasia with urinary retention documented in this encounter [facility] noteNo assessment information availableSelect [facility] Work Phone: Evaluation note* Diagnosis Retention of urine- Primary Retention of urine, unspecified Flaccid bladder Neurogenic bladder, NOS documented in this encounter [facility]* Diagnosis Chronic epididymitis- Primary Left hydrocele Hydrocele, unspecified Weak urinary stream Slowing of urinary stream BPH without obstruction/lower urinary tract symptoms Hypertrophy of prostate without urinary obstruction and other lower urinary tract symptoms (LUTS) Epididymitis Orchitis and epididymitis, unspecified documented in this encounter [facility] department noteNo InformationNort Nagisa,inc. Other Evaluation note* Diagnosis BPH with obstruction/lower urinary tract symptoms- Primary Hypertrophy of prostate with urinary obstruction and other lower urinary tract symptoms (LUTS) Recurrent UTI Urinary tract infection, site not specified Weak urinary stream Slowing of urinary stream documented in this encounter [facility]* Diagnosis Onset Date Resolution Status Chronic venous insufficiency of lower extremity acute Type 2 diabetes mellitus with hyperglycemia acute Chronic kidney disease acute Chronic venous insufficiency of lower extremity acute Elevated cholesterol acute HTN (hypertension) acute Type 2 diabetes mellitus with hyperglycemia acute [facility] Work Phone: Evaluation note* Diagnosis Onset Date Resolution Status Chronic venous insufficiency of lower extremity acute Type 2 diabetes mellitus with hyperglycemia acute Chronic kidney disease acute Chronic venous insufficiency of lower extremity acute Elevated cholesterol acute HTN (hypertension) acute Overweight acute Type 2 diabetes mellitus with hyperglycemia acute [facility] Work Phone: Evaluation note* Diagnosis Onset [...] acute Preop exam for internal medicine noneactive [facility] Work Phone: Evaluation note* Diagnosis Benign prostatic hyperplasia, unspecified whether lower urinary tract symptoms present- Primary Recurrent UTI Urinary tract infection, site not specified Nocturia documented in this encounter [facility]* Diagnosis Onset Date Resolution Status Chronic kidney disease acute Chronic venous insufficiency of lower extremity acute Elevated cholesterol acute HTN (hypertension) acute Osteomyelitis of right foot 2023 acute Type 2 diabetes mellitus with hyperglycemia acute Preop exam for internal medicine noneactive Chronic kidney disease acute Chronic venous insufficiency of lower extremity acute Elevated cholesterol acute HTN (hypertension) acute Overweight acute Type 2 diabetes mellitus wit h diabetic polyneuropathy acute Type 2 diabetes mellitus with hyperglycemia acute [facility] Work Phone: Evaluation note* Diagnosis Onset Date Resolution Status Chronic kidney disease acute Chronic venous insufficiency of lower extremity acute Elevated cholesterol acute HTN (hypertension) acute Overweight acute Type 2 diabetes mellitus with diabetic polyneuropathy acute Type 2 diabetes mellitus with hyperglycemia [facility] Work Phone: Evaluation note* Diagnosis 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 2 diabetes mellitus (CMS/HCC)- Primary 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 Dry eyes Unspecified tear film insufficiency Blepharitis of upper and lower eyelids of both eyes, unspecified type documented [facility] N[facility] - Reported* Type Description Date [...] cystoscopy 09.20.2019 Hospitalization History see surgical history Pinstant Karma Other Hospital Discharge instructions No data available for this section [facility] Progress note No data available for this section [facility] Reason for referral (narrative)* Outpatient Procedure (Routine) - Pending Review Specialty Diagnoses / Procedures Referred By Marce dillon Referred To Contact [facility] Diagnoses 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 Procedures URODYNAMICS MAGGY POST-VOIDING RESIDUAL URINE&/BLADDER CAP Leonard Dugan MD [address] [place] [address] [address] Referral ID Status Reason Start Date Expiration Date Visits Requested Visits Authorized [id number] Pending Review Auto-Generat ed Referral 11/12/2021 11/12/2022 1 1 [facility] Medications Administered Section Inactive Administered Medications - [...] Given 12/09/2021 3:00 PM EDT 11 mL Summary Purpose Family History No Family History Records Found Relationship Condition Age at Onset Recorded Date/T augusta father Heart disease Unknown Unknown Not Specified Unknown Malignant neoplasm Unknown Relationship Condition Age at Onset Recorded Date/T augusta father Heart disease Unknown Unknown mother Unknown Malignant neoplasm Unknown Advance Directives No Advanced Directives Records Found Advance Directive Response Recorded Date/ Time Advance Directives No November 6:09pm Chief Complaint and Reason for Visit Chief [...] Preop exam for internal medicine Chief Complaint pre op clearance Unknown Unknown Amb Documentation 3 month follow up Reason for Visit Chronic kidney disea se Chronic venous insufficiency of lower extremity Elevated cholesterol HTN (hypertension) Osteomyelitis of right foot Type 2 diabetes mellitus with hyperglycemia Preop exam for internal medicine Chronic kidney disease Chronic venous insufficiency of lower extremity Elevated cholesterol HTN (hypertension) Overweight Type 2 diabetes mellitus with diabetic polyneuropathy Type 2 diabetes mellitus with hyperglycemia Chief Complaint 3 month follow up Flu Shot Reason for Visit Chronic kidney disea se Chronic venous insufficiency of lower extremity Elevated cholesterol HTN (hypertension) Overweight Type 2 diabetes mellitus with diabetic polyneuropathy Type 2 diabetes mellitus with hyperglycemia Reason for Referral Reason Refer for diabetic f oot ulcer and calluses Diagnosis 1 Foot abscess, right (L02.611) Diagnosis 2 Callus of foot (L84) Diagnosis 3 Hammer toe of right foot (M20.41) Referral Organization [facility] Torie ugalde Referring Provider First Name Campbell Referring Provider Last Name Quentin Referring Provider Specialty Internal Me dicine Referred Organization [facility] Referred Provider Jhon Tejada Referred Address [address] [place], [place],[address] Referred Provider Specialty Podiatry - S urgical Chiropody Referral Priority Routine General Notes Referral of diabetic w/ SC abscess w/ callus formation right 5th and 2nd toe. Diabetic neuropathy w/ well controlled diabetes. Strong PT pulse. Additional Source Comments Source Comments (unrecognize d section and content) In the event this informatio n is protected by the Federal Confidentiality of Alcohol and Drug Abuse Patient Records regulations: The Federal rules restrict any use of the information to criminally investigate or prosecute any alcohol or drug abuse patient.[facility] CenterIn the event this information is protected by the Federal Confidentiality of Alcohol and Drug Abuse Patient Records regulations: The Federal rules restrict any use of the information to criminally investigate or prosecute any alcohol or drug abuse patient.[facility] CenterIn the event this information is protected by the Federal Confidentiality of Alcohol and Drug Abuse Patient Records regulations: The Federal rules restrict any use of the information to criminally investigate or prosecute any alcohol or drug abuse patient.[facility] CenterIn the event this information is protected by the Federal Confidentiality of Alcohol and Drug Abuse Patient Records regulations: The Federal rules restrict any use of the information to criminally investigate or prosecute any alcohol or drug abuse patient.[facility] CenterIn the event this information is protected by the Federal Confidentiality of Alcohol and Drug Abuse Patient Records regulations: The Federal rules restrict any use of the information to criminally investigate or prosecute any alcohol or drug abuse patient.[facility] CenterIn the event this information is protected by the Federal Confidentiality of Alcohol and Drug Abuse Patient Records regulations: The Federal rules restrict any use of the information to criminally investigate or prosecute any alcohol or drug abuse patient.[facility] CenterIn the event this information is protected by the Federal Confidentiality of Alcohol and Drug Abuse Patient Records regulations: The Federal rules restrict any use of the information to criminally investigate or prosecute any alcohol or drug abuse patient.[facility] CenterIn the event this information is protected by the Federal Confidentiality of Alcohol and Drug Abuse Patient Records regulations: The Federal rules restrict any use of the information to criminally investigate or prosecute any alcohol or drug abuse patient.[facility] CenterIn the event this information is protected by the Federal Confidentiality of Alcohol and Drug Abuse Patient Records regulations: The Federal rules restrict any use of the information to criminally investigate or prosecute any alcohol or drug abuse patient.[facility] CenterIn the event this information is protected by the Federal Confidentiality of Alcohol and Drug Abuse Patient Records regulations: The Federal rules restrict any use of the information to criminally investigate or prosecute any alcohol or drug abuse patient.[facility] CenterIn the event this information is protected by the Federal Confidentiality of Alcohol and Drug Abuse Patient Records regulations: The Federal rules restrict any use of the information to criminally investigate or prosecute any alcohol or drug abuse patient.[facility] CenterIn the event this information is protected by the Federal Confidentiality of Alcohol and Drug Abuse Patient Records regulations: The Federal rules restrict any use of the information to criminally investigate or prosecute any alcohol or drug abuse patient.[facility] CenterIn the event this information is protected by the Federal Confidentiality of Alcohol and Drug Abuse Patient Records regulations: The Federal rules restrict any use of the information to criminally investigate or prosecute any alcohol or drug abuse patient.[facility] Care Teams (unrecognized sec tion and content) Team Status: Active Member Role Status Dates Campbell Naranjo DO Primary Care Provider Active Team Status: Inactive Member Role Status Dates Campbell Naranjo , DO Primary Care Provide r, Attending Provider Active Start: September 23, 2023 End: September 23, 2023 Team Status: Inactive Member Role Status Dates Campbell Naranjo DO Primary Care Provide r, Attending Provider Active Start: December 15, 2023 End: December 15, 2023 Team Status: Active Member Role Status [...] Active Low Carter DO Emergency Provider Active [employer] Internship Relationship Specialty Start Date End Date Ran Lees Jr. PCP - General 10/10/09 [employer] Internship Relationship Specialty Start Date End Date Ran Lees Jr. PCP - General 10/10/09 [employer] Internship Relationship Specialty Start Date End Date Ran Lees Jr. PCP - General 7/29/10 [employer]ulatory Affairs Internship Relationship Specialty Start Date End Date Campbell Naranjo, DO [address] [facility] [place] [address] PCP - General Internal Medicine 11/26/21 Regulatory Affairs Internship Relationship Specialty Start Date End Date Campbell Naranjo, DO [address] [facility] [place] [address] PCP - General Internal Medicine 11/26/21 Regulatory Affairs Internship Relationship Specialty Start Date End Date Campbell Naranjo, DO [address] [place] [facility] [address] PCP - General Internal Medicine 11/26/21 Regulatory Affairs Internship Relationship Specialty Start Date End Date Campbell Naranjo, DO [address] [place] [place] [address] PCP - General Internal Medicine 11/26/21 Team Status: Inactive Member Role Status Dates Campbell Naranjo , Primary Care Provider Active Davis Cervantes MD Emergency Provider Active Regulatory Affairs Internship Relationship Specialty Start Date End Date Campbell Naranjo, DO [address] [place] [place] [address] PCP - General Internal Medicine 11/26/21 Team Status: Inactive Member Role Status Dates Campbell Naranjo , Primary Care Provider Active Sam Simons , Emergency Provider Active Team Status: Inactive Member Role Status Dates Campbell Naranjo , Primary Care Provider Active Sam Simons , DO Attending Provider Active Regulatory Affairs Internship Relationship Specialty Start Date End Date Campbell Naranjo, DO [address] [place] [place] [address] PCP - General Internal Medicine 11/26/21 Regulatory Affairs Internship Relationship Specialty Start Date End Date Campbell Naranjo, DO [address] [place] [place] [address] PCP - General Internal Medicine 11/26/21 Regulatory Affairs Internship Relationship Specialty Start Date End Date Campbell Naranjo, DO [address] [place] [address] PCP - General Internal Medicine 11/26/21 Team [...] July 22, 2023 End: July 22, 2023 Regulatory Affairs Internship Relationship Specialty Start Date End Date Campbell Naranjo DO [address] [place] [id number] PCP - General Internal Medicine 11/26/21 Team Status: Active Member Role Status Dates Campbell Naranjo DO Primary Care Provider Active Start: July 26, 2023 Leticia Milian APRN Attending Provider Active Start: July 26, 2023 Team Status: Active Member Role Status Dates Campbell Naranjo DO Primary Care Provider Active Start: August 04, 2023 TAMMY Fair Attending Provider Active Start : August 04, 2023 Regulatory Affairs Internship Relationship Specialty Start Date End Date Campbell Naranjo MD [address] [place] [phone] PCP - General Internal Medicine 12/17/23 Regulatory Affairs Internship Relationship Specialty Start Date End Date Campbell Naranjo MD [address] [place] [address] [place] [id number] PCP - General Internal Medicine 12/17/23 Regulatory Affairs Internship Relationship Specialty Start Date End Date Campbell Naranjo MD [address] [facility] [place] [phone] PCP - General Internal Medicine 12/17/23 Reason for Visit (unrecogniz ed section and content) Reason Comments Cystoscopy-1 Reason Comments Hamilton Cath Problem Hematuria Reason Comments urodynamics Reason Comments Hamilton Reason Comments Appointment Reschedule catheter change Reason Comments Patient Update Reason Comments Follow Up Reason Comments Refill Request Reason Comments Consult Reason Comments Diabetic Eye Exam (unrecognized sect ion and content) No Status Records FoundNo Status Records FoundNo Status Records FoundNo Status Records FoundNo Status Records FoundNo Status Records FoundNo Status Records FoundNo Status Records FoundNo Status Records Found INFORMATION SOURCE (unrecogn ized section and content) DATE CREATED AUTHOR 12/13/2021 [facility] DATE CREATED AUTHOR AUTHOR'S ORGANIZ ATION 06/25/2022 [facility] DATE CREATED AUTHOR AUTHOR'S ORGANIZ ATION 07/27/2023 [facility] DATE CREATED AUTHOR AUTHOR'S ORGANIZ ATION 08/06/2023 [facility] DATE CREATED AUTHOR AUTHOR'S ORGANIZ ATION 12/19/2023 [facility] DATE CREATED AUTHOR AUTHOR'S ORGANIZ ATION [facility]19/2023 [facility] DATE CREATED AUTHOR AUTHOR'S ORGANIZ ATION 12/26/2023 [facility] Goals (unrecognized section and content) Goals may [...] may be documented in an alternate section No data available for this section FOR RECORDS PERTAINING TO PATIENTS WHO [...] BE BASED ON THE PRIMARY CLINICAL RECORDS. [facility] provides no warranty or guarantee of the accuracy or completeness of information in this document.
[2023-12-30 07:51] LABS: Basophils Percent Auto 0.4 % (0.2-2.0); Eosinophils Absolute Auto 0.2 10^3/uL (0.0-0.7); Eosinophils Percent Auto 2.6 % (0.9-7.0); Hematocrit 41.1 % (42.0-54.0); Hemoglobin 14.1 g/dL (14.0-18.0); Immature Granulocytes Abs Auto 0.04 10^3/uL (0.00-0.03); Immature Granulocytes Pct Auto 0.5 % (0.0-0.5); Lymphocytes Absolute Auto 2.7 10^3/uL (1.2-3.8); Lymphocytes Percent Auto 32.7 % (20.5-60.0); Mean Corpuscular HGB Conc 34.3 g/dL (29.9-35.2); Mean Corpuscular Hemoglobin 32.1 pg (25.9-34.0); Mean Corpuscular Volume 93.6 fL (80.0-94.0); Mean Platelet Volume 9.2 fL (9.5-13.5); Monocytes Absolute Auto 1.1 10^3/uL (0.3-0.8); Monocytes Percent Auto 13.6 % (1.7-12.0); Neutrophils Absolute Auto 4.1 10^3/uL (1.4-6.5); Neutrophils Percent Auto 50.2 % (43.0-75.0); Platelet Count 229 10^3/uL (150-450); Red Blood Count 4.39 10^6/uL (4.70-6.10); Red Cell Distribution Width 11.3 % (11.0-15.0); White Blood Count 8.1 10^3/uL (4.0-11.0)
[2023-12-30 08:28] LABS: Creatinine Urine Random 101.28 mg/dL (20.00-300.00); Microalbum Creatinine Ratio Ur 12.8 mg/g (0.0-29.9); Microalbumin Urine Random 1.3 mg/dL (<=30.0)
[2023-12-30 08:31] LABS: Alanine Aminotransferase 28 U/L (16-63); Albumin Globulin Ratio 1.2; Albumin Level 3.6 g/dL (3.4-5.0); Alkaline Phosphatase 58 U/L (46-116); Anion Gap 12.9; Aspartate Amino Transferase 21 U/L (15-37); BUN Creatinine Ratio 15.3; Bilirubin Total 0.7 mg/dL (0.2-1.0); Calcium 8.8 mg/dL (8.5-10.1); Carbon Dioxide 27.5 mmol/L (21.0-32.0); Chloride 102 mmol/L (98-107); Chol HDL Ratio 3.1; Cholesterol 168 mg/dL (<=200); Estimated GFR (African America 57 (>=60 mL/min/1.73m^2); Estimated GFR (Non-African Ame 47 (>=60 mL/min/1.73m^2); Globulin 3.1 g/dL; Glucose 101 mg/dL (74-106); HDL Cholesterol 55 mg/dL (40-60); LDL Cholesterol Calculated 86.2 mg/dL; Potassium 4.4 mmol/L (3.5-5.1); Sodium 138 mmol/L (136-145); Total Protein 6.7 g/dL (6.4-8.2); Triglycerides 134 mg/dL (<=150); VLDL CHOLESTEROL 26.8 mg/dL
[2023-12-30 10:15] LABS: Estimated Average Glucose 123 mg/dL; Glycohemoglobin A1C 5.9 % (4.5-6.2)
== END 2023-12-30 06:52 | disposition home or self-care (01) ==
LOC: LAB 06:54
PROVIDERS: PCP Internal Medicine; Visit Provider Internal Medicine
DX: I12.9 Hypertensive chronic kidney disease with stage 1 through stage 4 chronic kidney disease, or unspecified chronic kidney disease (principal); N18.9 Chronic kidney disease, unspecified; E11.65 Type 2 diabetes mellitus with hyperglycemia; E78.00 Pure hypercholesterolemia, unspecified; R01.1 Cardiac murmur, unspecified
CPT/HCPCS: 36415; 80053; 80061; 82043; 82570; 83036; 85025

== ENCOUNTER 2023-12-30 13:52 | Outpatient (OUT) | payer MEDICARE, SELFPAY ==
--- NOTE | 2023-12-30 13:55 | CA_ITS ---
Patient Name: EMILY WASHINGTON MR#: [id number] : 1940 Exam Date: 12/30/2023 Ordering Doctor: DR LANE SAAVEDRA D.O. ECHOCARDIOGRAM REPORT PROCEDURE: CA ECHO DOPPLER COMPLETE INDICATIONS: Heart murmur, Hypertension, COMPARISON: None. DESCRIPTION: COMPLETE ECHOCARDIOGRAM Real-time transthoracic echocardiography with 2D, M-mode, spectral and color flow Doppler performed. QUALITY: Technical quality was good. LEFT VENTRICLE: Normal chamber size. Borderline left ventricular hypertrophy. Global left ventricular systolic function is normal. LV EF: Estimated left ventricular ejection fraction is 65% DIASTOLIC: Grade I diastolic dysfunction. ATRIAL SEPTUM: LEFT ATRIUM: Mild dilatation. RIGHT ATRIUM: Mild dilatation. RIGHT VENTRICLE: Normal chamber size. Normal right ventricular systolic function. TRICUSPID VALVE: Normal mobility and thickness. No stenosis with trivial regurgitation. Mild pulmonary hypertension. RVSP 36 mmHg MITRAL VALVE: Normal mobility and thickness. No evidence of mitral valve stenosis. Mitral annular calcification. Trivial mitral regurgitation. AORTIC VALVE: Normal trileaflet appearance. Mildly calcified aortic valve. Moderately diminished mobility. Doppler velocity suggests mild aortic valve stenosis. DVI 0.44, ALPHONSE 1.7 cm2, Vmax 2.2 m/s, Mean gradient 10 mmHg. No aortic regurgitation. AORTIC ROOT: Normal diameter and appearance, measuring 3.3 cm. Normal size ascending aorta measuring 2.9 cm. PULMONIC VALVE: Normal thickness and mobility. No stenosis. Trivial regurgitation. PERICARDIUM: No evidence of pericardial effusion. IVC: Not well visualized. PLEURA: CONCLUSION: 1. Borderline left ventricular hypertrophy with normal systolic function. Estimated LVEF is 65%. 2. Normal right ventricular size and systolic function. 3. Mild biatrial dilatation. 4. Mild diastolic dysfunction. 5. Mild aortic valve stenosis. 6. Mildly elevated right-sided pressures. Adult Echocardiography Procedure Report Left Ventricle LVEDD (3.7 - 5.6 cm): 4.15 cm LVESD (2.2 - 4.0 cm): 2.42 cm LVIVS thickness (0.6 - 1.2 cm): 1.14 cm LVPW thickness (0.5 - 1.0 cm): 1.10 cm e': 0.09 m/s E - e': 9.72 LVOT Max Gradient: 3.59 mm[Hg] LVOT Area (cm2): 0.95 m/s Peak Velocity (LVOT): 0.95 m/s Mean Velocity (LVOT): 0.66 m/s LVOT Diameter 2.21 cm Left Ventricular Ejection Fraction: 65 % Left Atrium LA Volume Index (2D A2C): 29.08 ml/m2 Left Atrium Systolic Dimension: 2.47 cm Mitral Valve MV E to A Ratio: 0.81 Mitral Valve A-Wave Peak Velocity: 1.13 m/s Mitral Valve E-Wave Peak Velocity: 0.92 m/s Right Ventricle RV Internal Diastolic Dimension: 3.28 cm Aorta AO Root Diam: 3.30 cm Ascending Ao Diam: 2.91 cm Aortic Valve AoV Area (Peak Kamron): 1.75 cm2, 1.82 cm2 AoV Area (VTI): 1.80 cm2, 1.85 cm2 Peak Velocity(Antegrade Flow): 1.99 m/s, 2.15 m/s Peak Gradient(Antegrade Flow): 15.79 mm[Hg], 18.45 mm[Hg] Mean Velocity(Antegrade Flow): 1.42 m/s, 1.43 m/s Mean Gradient(Antegrade Flow): 9.07 mm[Hg], 9.55 mm[Hg] Velocity Time Integral: 41.27 cm, 43.38 cm Tricuspid Valve Peak Velocity (Regurgitant Flow): 2.87 m/s, 2.62 m/s Pulmonic Valve Mean Gradient: 2.26 mm[Hg] Mean Velocity: 0.71 m/s Peak Velocity: 1.01 m/s, 1.11 m/s Peak Gradient: 4.10 mm[Hg], 4.93 mm[Hg] Right Atrium Right Atrium Systolic Pressure: 48.21 ml, 48.21 ml Dictated by: Diony Meyer M.D. on 12/30/2023 at 17:39 Approved by: Diony Meyer M.D. on 12/30/2023 at 17:42
== END 2023-12-30 13:53 | disposition home or self-care (01) ==
LOC: CARD 13:53
PROVIDERS: PCP Internal Medicine; Visit Provider Internal Medicine
DX: R01.1 Cardiac murmur, unspecified (principal); I10 Essential (primary) hypertension; E78.00 Pure hypercholesterolemia, unspecified
CPT/HCPCS: 93306

== ENCOUNTER 2024-01-30 14:53 | Outpatient (OUT) | payer MEDICARE, SELFPAY ==
--- OUTSIDE RECORDS SUMMARY | 2024-02-01 15:08 | XMS_ITS | CCD ---
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 Primary Care Provider Unava ilable RAN LEES JR Primary Care Unavailable KEELY GUTIERREZ Attending Unavailable CAMPBELL NARANJO Primary Care Unavailable Campbell Naranjo DO Primary Care Provider DO Campbell Naranjo Primary Care Provider [phone] MD Davis Cervantes Emergency Provider DO Sam Simons Emergency Provider DO Sam Simons Attending Provider Campbell Naranjo Unavailable DR CAMPBELL NARANJO Primary Care Unavailable QUENTIN, DR SHERMAN Consulting Unavailable QUENTIN, DR SHERMAN Admitting Unavailable BALL, DR SHERMAN Attending Unavailable BALL, DR SHERMAN Primary Care Unavailable MELISSA, DR SAMY Nieves Consulting Unavailable LAKESHIA, ACTRACHITA Admitting Unavailable LAKESHIA, CATRACHITA Attending Unavailable LAKESHIA, [...] Emergency Provider CHRISTIAN Tejada Attending Provider [phone] Jhon Tejada Attending Unavailable Jhon Tejada Admitting [...] Primary Care Unavailable LETICIA MILIAN Referring Unavailable ELTICIA MILIAN Attending Unavailable CAMPBELL NARANJO Primary Care Unavailable CAMPBELL NARANJO Referring Unavailable CAMPBELL NARANJO Primary Care Unavailable CAMPBELL NARANJO Primary Care Unavailable RUKHSANA, LETICIA Sanderson Referring Unavailable CAMPBELL NARANJO Primary Care Unavailable LETICIA MILIAN Attending Unavailable DO Campbell Naranjo Primary Care Provider [phone] STERLING ZAMUDIO Attending Unavailable Sterling Zamudio Admitting Unavailable Sterling Zamudio Attending Unavailable Campbell Naranjo MD Primary Care Provider CAMPBELL NARANJO Primary Care Physician Sterling Zamudio Admitting Unavailable Sterling Zamudio Attending Unavailable Allergies Allergy Classification Reported Allergen(s) Allergy Type Date of Onset Reaction(s) Facility (20 sources) Ciprofloxacin; Translations: [CIPROFLOXACIN] Drug Allergy 08-01-19 10 GI Upset, hives, Weal (disorder) [facility] (20 sources) Sulfonamides (Antibiotic); Translations: [SULFA (SULFONAMIDE ANTIBIOTICS)] Propensity to adverse reactions 08-01-19 10 Rash, hives [facility] (2 sources) Ciprofloxacin; Translations: [Cipro] Drug Allergy [facility] (1 source) Sulfonamides (Antibiotic) Drug allergy (disorder) [facility] (1 source) Allergies Reconciled Propensity to adverse reactions Unknown [facility] Other (1 source) patient allergy list reviewed by nurse or physicia Propensity to adverse reactions 05-20-19 Comment:Done [facility] Other (1 source) Ciprofloxacin Drug Allergy 07-09-19 [facility] Repository (1 source) Sulfonamides (Antibiotic) Drug allergy (disorder) 07-09-19 [facility] (2 sources) Sulfonamides (Antibiotic); Translations: [sulfa drugs] Propensity to adverse reactions (disorder) Weal (disorder) [facility] Repository Medications Current Medications Medication Drug Class(es) [...] FLEX) Start: 10-28-2021 take 1 capsule by [facility] once daily Keflex 500 mg Cap 500 mg = 1 cap(s), Oral, Daily, Take 1 capsule the day before the procedure and 1 capsule after the procedure, # 2 cap(s), Refills(s) 0, Pharmacy: [facility]/pharmacy #[id number], 192, cm, 12/14/19 10:22:00 EDT, Height/Length Dosing, 104, kg, 12/14/19 10:22:00 EDT, Weight Dosing Start Date: 10/28/21 Status: Ordered Comment on above: Take 1 capsule by [facility] twice daily. Take 1 capsule by [facility] three times daily for 3 days. [...] 0 01/09/2010 Active take 1 tablet by [facility] every twenty-four hours glipiZIDE XL 5 MG [...] above: Take 1 capsule by [facility] once daily. Take one cap. daily Turmeric Root-Yulisa Root Ext (7 sources) Start: 05-21-2023 Turmeric Root-Yulisa Root Ext Active TAB PO May 21, 2023 1:00am Turmeric-Yulisa 150-25 MG (4 sources) Turmeric-Yulisa 150-25 MG as directed Orally Active Vitamins A,C,Q-Zovi-Kltjsy (Preservision Areds) 4,296 mcg-226 mg-90 mg capsule (1 source) Start: 12-28-2023 take 1 capsule by mouth twice daily Vitamins A,C,C-Hbog-Tdoedg (Preservision Areds) 4,296 mcg-226 mg-90 mg capsule [...] sources) H/O: high risk medication; Translations: [Other snf (current) drug therapy] Episodic Other aftercare (1 source) Long-term current use of drug therapy; Translations: [Other terminal system operator (current) drug therapy] Episodic Other circulatory [...] 08-28-2019 Episodic Other aftercare (1 source) Other snf (current) drug therapy; Translations: [OTH RESOLUTE PROFESSIONAL CURRENT DRUG THERAPY] Onset: 10-22-2021 Episodic Other [...] 12-17-2023 CRP [Mass/Vol] 0.2 mg/dL Normal <=1.9 [facility] Comment on above: Performed By: #### 2 [id number] #### [facility] Laboratory [address] [place] [address] [facility] PLATELET COUNTon 2023 Platelets (Bld) [#/Vol] 239.0 10*3/uL [facility] Original Ordering Provider: DO Sterling HANNA [facility] HEMATOLOGYOrdered By: Nat Aldridge on 12-17-2023 ESR (Bld) [Velocity] 4 mm/h Normal 0 - 19 mm/hr [facility] HemeAutoSS HEMATOLOGYOrdered By: SYSTEM SYSTEM on 12-17-2023 Platelet 239.0 E9/L Normal 150.0 - 500.0 E9/L [facility] Heme Ophthalmic OCT panelon 12-16 [facility] Right Eye Images reviewed and comparison made to baseline, Images reviewed. To assess optic nerve function and for use in future follow-up. Reliability: good and adequate. Left Eye Images reviewed and comparison made to baseline, Images reviewed. To assess optic nerve function and for use in future follow-up. Reliability: good and adequate. 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 [facility] Radiology Study observation (narrative) [facility] Optical coherence tomography study reporton 12-17-2023 [facility] Radiology Study observation (narrative) [facility] Platelet Counton 12-17-2023 Platelet 239.0 E9/L Normal 150.0-500.0 [facility] Comment on above: Performed By: #### 2 [id number] #### [facility] Laboratory [address] [place] [address] Sed Rate Automatedon 024 ESR (Bld) [Velocity] 4 mm/h Normal 0-19 [facility] Comment on above: Performed By: #### 1 [id number] #### [facility] [address] [place] [address] OVon 08-04-2023 CNOV Office Visit (UROLLN) -------- NORBERTO WASHINGTON ([id number]) 1940 M Date Time Provider Department 08/04/23 9:00 AM LETICIA MILIAN UROLLN During your visit today, we recorded the following information about you: Pulse Blood pressure Weight 65/minute 130/56 99.8 kg Leticia Milian, [employer] 08/04/2023 9:23 AM Signed Norberto Washington [address] [facility] [address] HISTORY OF PRESENT ILLNESS: Seen 02/02/23 for [...] today 08/04/23) 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 PVR=36 ML UA 07/26/23=trace leuk esterase Culture 07/26/23=<10,000 CFU/ml Lactose positive gram negative bacilli Abnormal A1C 07/26/23=6.4 Location: BPH w obs/luts, UTI Pain Character: none Severity Scale: see AUA score, see lab Duration: BPH w obs/luts, UTI [facility] SYMPTOMS SCORE. 1. INCOMPLETE EMPTYING [...] (Diagnostic Possibilitie (more content not included)... Normal [facility] Bacteria Ur Culton 4 Bacteria identified Cx Nom (U) ORGANISM ID: 1 <10,000 CFU/ml Lactose positive gram negative bacilli Insignificant colony count. No further workup. Normal [facility] Comment on above: Performed By: #### 6 30-4 #### [facility] CLIA [id number] [address] [place] [address] [place] Glucose mean value [Mass/vol ume] in Blood Estimated from glycated hemoglobinon 07-26-2023 Average glucose Estimated from glycated hemoglobin (Bld) [Mass/Vol] 137 mg/dL [facility] Comment on above: eAG: (Estimated aver age glucose) is a calculated value from HgbA1c and is retail customer service representative of the average blood glucose level in the last 2-3 month period. HbA1c (Bld)on 07-26-2023 Average glucose Estimated from glycated hemoglobin (Bld) [Mass/Vol] 137 mg/dL Normal [facility] Comment on above: Order Comment: Specfabiana men Type: BLOOD SPECIMEN Ordering Facility: Dr Naranjo and Dr Baptiste Office Address: [address] [place] [address] Result Comment: eAG: (Estimated average glucose) is a calculated value from HgbA1c and is retail customer service representative of the average blood glucose level in the last 2-3 month period. Performed By: #### 5 5454-3 #### [facility] CLIA [id number] [facility] [place] [address] [place] HbA1c (Bld) [Mass fraction] 6.4 % High 4.3-5.6 [facility] Comment on above: Order Comment: Specfabiana men Type: BLOOD SPECIMEN Ordering Facility: Dr Kate Baptiste Office Address: [address] [place] [address] Result Comment: Amer ican Diabetes Association guidelines indicate that patients with HgbA1c in the range 5.7-6.4% are at increased risk for development of diabetes, and intervention by lifestyle modification may be beneficial. HgbA1c greater or equal to 6.5% is considered diagnostic of diabetes. Performed By: #### 5 5454-3 #### [facility] CLIA [id number] [address] [place] [address] [place] Laboratory - Hematology and Cell countson 07-26-2023 HbA1c (Bld) [Mass fraction] 6.4 % High 4.3-5.6 [facility] Comment on above: [place] Diabetes As sociation guidelines indicate that patients with HgbA1c in the range 5.7-6.4% are at increased risk for development of diabetes, and intervention by lifestyle modification may be beneficial. HgbA1c greater or equal to 6.5% is considered diagnostic of diabetes. UrinalysisOrdered By: Leticia Milian on 07-26-2023 Urinalysis complete panel (U) [facility] Urinalysis complete panel (U )on 07-26-2023 Bacteria LM.HPF (Urine sed) [#/Area] Negative Normal Negative [facility] Comment on above: Order Comment: Speci men Type: URINE SPECIMEN Ordering Facility: [facility] Address: [address] [place] [address] Performed By: #### 2 4356-8 #### [facility] CLIA [id number] [address] [place] [address] [place] Bilirubin Ql (U) Negative Normal Negative [facility] Comment on above: Order Comment: Speci men Type: URINE SPECIMEN Ordering Facility: [facility] Address: [address] [place] [address] Performed By: #### 2 4356-8 #### [facility] CLIA [id number] [address] [place] [address] [place] Clarity (Unsp spec) Clear Normal Clear [facility] Comment on above: Order Comment: Speci men Type: URINE SPECIMEN Ordering Facility: [facility] Address: [address] [place] [address] Performed By: #### 2 4356-8 #### [facility] CLIA [id number] [address] [place] [address] [place] Color (U) Yellow Normal Yellow [facility] Comment on above: Order Comment: Speci men Type: URINE SPECIMEN Ordering Facility: [facility] Address: [address] [place] [address] Performed By: #### 2 4356-8 #### [facility] CLIA [id number] [address] [place] [address] [place] Epithelial cells LM.HPF (Urine sed) [#/Area] None Seen Normal [facility] Comment on above: Order Comment: Speci men Type: URINE SPECIMEN Ordering Facility: [facility] Address: [address] [place] [address] Performed By: #### 2 4356-8 #### [facility] CLIA [id number] [address] [place] [address] [place] Glucose Test strip (U) [Mass/Vol] Negative Normal Negative [facility] Comment on above: Order Comment: Speci men Type: URINE SPECIMEN Ordering Facility: [facility] Address: [address] [place] [address] Performed By: #### 2 4356-8 #### [facility] CLIA [id number] [address] [place] [address] [place] Hemoglobin Ql (U) Negative Normal Negative [facility] Comment on above: Order Comment: Speci men Type: URINE SPECIMEN Ordering Facility: [facility] Address: [address] [place] [address] Performed By: #### 2 4356-8 #### [facility] CLIA [id number] [address] [place] [address] [place] Hyaline casts (Urine sed) [#/Area] 1-3 /LPF Abnormal 0 /LPF [facility] Comment on above: Order Comment: Speci men Type: URINE SPECIMEN Ordering Facility: [facility] Address: [address] [place] [address] Performed By: #### 2 4356-8 #### [facility] CLIA [id number] [address] [place] [address] [place] Ketones Ql (U) Negative Normal Negative [facility] Comment on above: Order Comment: Speci men Type: URINE SPECIMEN Ordering Facility: [facility] Address: [address] [place] [address] Performed By: #### 2 4356-8 #### [facility] CLIA [id number] [address] [place] [address] [place] Leukocyte esterase Test strip Ql (U) Trace Abnormal Negative [facility] Comment on above: Order Comment: Speci men Type: URINE SPECIMEN Ordering Facility: [facility] Address: [address] [place] [address] Performed By: #### 2 4356-8 #### [facility] CLIA [id number] [address] [place] [address] [place] Nitrite Ql (U) Negative Normal Negative [facility] Comment on above: Order Comment: Speci men Type: URINE SPECIMEN Ordering Facility: [facility] Address: [address] [place] [address] Performed By: #### 2 4356-8 #### [facility] CLIA [id number] [address] [place] [address] [place] pH (U) 6.0 [pH] Normal <8.5 [facility] Comment on above: Order Comment: Speci men Type: URINE SPECIMEN Ordering Facility: [facility] Address: [address] [place] [address] Performed By: #### 2 4356-8 #### [facility] CLIA [id number] [address] [place] [address] [place] Protein (U) [Mass/Vol] Negative Normal Negative [facility] Comment on above: Order Comment: Speci men Type: URINE SPECIMEN Ordering Facility: [facility] Address: [address] [place] [address] Performed By: #### 2 4356-8 #### [facility] CLIA [id number] [address] [place] [address] [place] RBC LM.HPF (Urine sed) [#/Area] 0-2 /HPF Normal 0-2 /HPF [facility] Comment on above: Order Comment: Speci men Type: URINE SPECIMEN Ordering Facility: [facility] Address: [address] [place] [address] Performed By: #### 2 4356-8 #### [facility] CLIA [id number] [address] [place] [address] [place] Specific gravity (U) [Rel density] 1.016 Normal 1.005-1.030 [facility] Comment on above: Order Comment: Speci men Type: URINE SPECIMEN Ordering Facility: [facility] Address: [address] [place] [address] Performed By: #### 2 4356-8 #### [facility] CLIA [id number] [address] [place] [address] [place] Urobilinogen Ql (U) 0.2 EU/dL Normal 0.2-1.0 EU/dL [facility] Comment on above: Order Comment: Speci men Type: URINE SPECIMEN Ordering Facility: [facility] Address: [address] [place] [address] Performed By: #### 2 4356-8 #### [facility] CLIA [id number] [address] [place] [address] [place] WBC LM.HPF (Urine sed) [#/Area] 0-5 /HPF Normal 0-5 /HPF [facility] Comment on above: Order Comment: Speci men Type: URINE SPECIMEN Ordering Facility: [facility] Address: [address] [place] [address] Performed By: #### 2 4356-8 #### [facility] CLIA [id number] [address] [place] [address] [place] Urine culture routineOrdered By: Leticia Milian on 07-26-2023 Bacteria identified Cx Nom (U) [facility] Basophils Auto (Bld) [#/Vol] on 07-22-2023 Basophils (Bld) [#/Vol] 0.0 10 3/uL 0.0-0.1 [facility] Basophils/100 WBC Auto (Bld) on 07-22-2023 Basophils/100 WBC (Bld) 0.5 % 0.2-2.0 [facility] Eosinophils/100 WBC Auto (Bl d)on 07-22-2023 Eosinophils/100 WBC (Bld) 2.7 % 0.9-7.0 [facility] Erythrocyte distribution wid th Auto (RBC) [Ratio]on 07-22-2023 Erythrocyte distribution width (RBC) [Ratio] 12.2 % 11.0-15.0 [facility] Estimated glomerular filtrat ion rate (GFR) non- Americanon 07-22-2023 GFR/1.73 sq M.predicted among non-blacks MDRD (S/P/Bld) [Vol rate/Area] 49 mL/min/{1.73_m2} Low >=60 [facility] Hematocrit Auto (Bld) [Volum e fraction]on 07-22-2023 Hematocrit (Bld) [Volume fraction] 37.8 % Low 42.0-54.0 [facility] Hemoglobin [Mass/volume] in Bloodon 07-22-2023 Hemoglobin (Bld) [Mass/Vol] 12.6 g/dL Low 14.0-18.0 [facility] Yuri 07-22-2023 L Specimen: [id number] Received: 07/22/23 Status: MARY Najera Num: [id number] Spec Type: Surgical Subm Dr: Jhon Tejada DPM, MS Tissues: A DIGIT AMPUTATION (DISTAL RT FOURTH TOE) Procedures: HE/2, Gross/Micro L4, Decalcification Age/ Patient Sex Location Account Attending Physician Norebrto Washington 83/M LABELL [id number] Jhon Tejada DPM, MS SPEC NUM: [id number] RECD: 07/22/23 STATUS: MARY NAJERA NUM: [id number] CAITY: 07/22/[address]: Jhon Tejada,CHRISTIAN, MS ENTERED: 07/22/23 [facility] DR: Anderson,Lab SPEC TYPE: Surgical DEPT: [...] history: Disruption of surgical wound CPT Codes 23595 -- -- Specimen: [id number] Received: 07/22/23 Status: MARY Najera Num: [id number] Spec Type: Surgical Subm Dr: Jhon Tejada DPM, MS Tissues: A DIGIT AMPUTATION (DISTAL RT FOURTH TOE) Procedures: HE/2, Gross/Micro L4, Decalcification -- Patient: Norberto Washington [id number] (Continued) -- Signed (signatu re on file) Gin Talley MD 07/26/23 1525 Normal [facility] - Chemistry and C hemistry - challengeon 07-22-2023 Calcium [Mass/Vol] 9.0 mg/dL 8.5-10.1 [facility] Chloride [Moles/Vol] 98 mmol/L 98-107 [facility] CO2 [Moles/Vol] 27.0 mmol/L 21.0-32.[address] [facility] Creatinine [Mass/Vol] 1.39 mg/dL High 0.70-1.30 [facility] GFR/1.73 sq M.predicted MDRD (S/P/Bld) [Vol rate/Area] 59 mL/min/{1.73_m2} Low >=60 [facility] Glucose [Mass/Vol] 120 mg/dL High 74-106 [facility] Potassium [Moles/Vol] 4.9 mmol/L 3.5-5.1 [facility] Sodium [Moles/Vol] 135 mmol/L Low 136-145 [facility] Urea nitrogen [Mass/Vol] 23.0 mg/dL High 7.0-18.0 [facility] Urea nitrogen/Creatinine [Mass ratio] 16.5 mg/mg [facility] Laboratory - Hematology and Cell countson 07-22-2023 Immature granulocytes/100 WBC (Bld) 0.5 % 0.0-0.5 [facility] Leukocytes [#/volume] correc marshal for nucleated erythrocytes in Blood by Automated counon 07-22-2023 WBC corrected for nucl RBC Auto (Bld) [#/Vol] 8.1 10 3/uL 4.0-11.0 [facility] Lymphocytes Auto (Bld) [#/Vo l]on 07-22-2023 Lymphocytes (Bld) [#/Vol] 2.3 10 3/uL 1.2-3.8 [facility] Lymphocytes/100 WBC Auto (Bl d)on 07-22-2023 Lymphocytes/100 WBC (Bld) 28.3 % 20.5-60.0 [facility] MCH Auto (RBC) [Entitic mass ]on 07-22-2023 MCH (RBC) [Entitic mass] 30.7 pg 25.9-34.0 [facility] MCHC Auto (RBC) [Mass/Vol]on 07-22-2023 MCHC (RBC) [Mass/Vol] 33.3 g/dL 29.9-35.2 [facility] MCV Auto (RBC) [Entitic vol] on 07-22-2023 MCV (RBC) [Entitic vol] 92.0 fL 80.0-94.0 [facility] Monocytes Auto (Bld) [#/Vol] on 07-22-2023 Monocytes (Bld) [#/Vol] 1.1 10 3/uL High 0.3-0.8 [facility] Monocytes/100 WBC Auto (Bld) on 07-22-2023 Monocytes/100 WBC (Bld) 13.7 % High 1.7-12.0 [facility] Neutrophils Auto (Bld) [#/Vo l]on 07-22-2023 Neutrophils (Bld) [#/Vol] 4.4 10 3/uL 1.4-6.5 [facility] Neutrophils/100 WBC Auto (Bl d)on 07-22-2023 Neutrophils/100 WBC (Bld) 54.3 % 43.0-75.0 [facility] No Panel Informationon 07-21 Eosinophils # (Auto) 0.2 10 3/uL 0.0-0.7 [facility] Immature Granulocyte # (Auto) 0.04 10 3/uL High 0.00-0.03 [facility] Platelet mean volume Auto (B ld) [Entitic vol]on 07-22-2023 Platelet mean volume (Bld) [Entitic vol] 8.2 fL Low 9.5-13.5 [facility] Platelets Auto (Bld) [#/Vol] on 07-22-2023 Platelets (Bld) [#/Vol] 268 10 3/uL 150-450 [facility] RBC Auto (Bld) [#/Vol]on RBC (Bld) [#/Vol] 4.11 10 6/uL Low 4.70-6.10 [facility] Serum or plasma anion gap de terminationon 07-22-2023 Anion gap [Moles/Vol] 14.9 mmol/L [facility] Yuri 07-12-2023 L Specimen: [id number] Received: 07/12/23 Status: MARY Najera Num: [id number] Spec Type: Surgical Subm Dr: Jhon Tejada DPM, MS Tissues: A DIGIT AMPUTATION (LT FOURTH TOE) B DIGIT AMPUTATION (RT FOURTH TOE) Procedures: HE/4, Gross/Micro L4/2, Decalcification/2 Age/ Patient Sex Location Account Attending Physician Norberto Washington 83/Kaylin LABELL [id number] Jhon Tejada DPM, MS SPEC NUM: [id number] RECD: 07/12/23 STATUS: MARY NAJERA NUM: [id number] CAITY: 07/12/[address]: Jhon Tejada DPM, MS ENTERED: 07/12/23 [facility] DR: Chaim Barron SPEC TYPE: Surgical [...] digit. The skin surface is -- Specimen: [id number] Received: 07/12/23 Status: MARY Underwoodjomar Num: [id number] Spec Type: Surgical Subm Dr: Jhon Tejada,DPKaylin, MS Tissues: A DIGIT AMPUTATION (LT FOURTH TOE) B DIGIT AMPUTATION (RT FOURTH TOE) Procedures: HE/Anabel, Gross/Micro L4/2, Decalcification/2 -- Patient: Norberto Washington [id number] ([facility]) -- Specimen: [id number] Received: 07/12/23 (Continued) Gross Description (Continued) Signed (signatu re on file) Yisel Kaminski MD 07/13/231921 -- Specimen: [id number] Received: 07/12/23 Status: MARY Najera Num: [id number] Spec Type: Surgical Subm Dr: Jhon Tejada,CHRISTIAN, MS Tissues: A DIGIT AMPUTATION (LT FOURTH TOE) B DIGIT AMPUTATION (RT FOURTH TOE) Procedures: AVEL, Gross/Micro L4/2, Decalcification/2 -- Patient: Norberto Washington [id number] (Continued) -- Specimen: [id number] Received: 07/12/23 (Continued) Gross Description (Continued) 90% [...] foot, osteomyelitis right foot TW CPT Codes 11216 X2 63416 X2 -- -- Specimen: [id number] Received: 07/12/23 Status: MARY Najera Num: [id number] Spec Type: Surgical Subm Dr: Jhon Tejada,CHRISTIAN, MS Tissues: A DIGIT AMPUTATION (LT FOURTH TOE) B DIGIT AMPUTATION (RT FOURTH TOE) Procedures: HE/4, Gross/Micro L4/2, Decalcification/2 -- Patient: Norberto Washington [id number] (Continued) -- Signed (signatu re on f (more content not included)... Normal [facility] Basophils Auto (Bld) [#/Vol] on 07-06-2023 Basophils (Bld) [#/Vol] 0.0 10 3/uL 0.0-0.1 [facility] Basophils/100 WBC Auto (Bld) on 07-06-2023 Basophils/100 WBC (Bld) 0.4 % 0.2-2.0 [facility] Eosinophils/100 WBC Auto (Bl d)on 07-06-2023 Eosinophils/100 WBC (Bld) 2.3 % 0.9-7.0 [facility] Erythrocyte distribution wid th Auto (RBC) [Ratio]on 07-06-2023 Erythrocyte distribution width (RBC) [Ratio] 12.4 % 11.0-15.0 [facility] Estimated glomerular filtrat ion rate (GFR) non- Americanon 07-06-2023 GFR/1.73 sq M.predicted among non-blacks MDRD (S/P/Bld) [Vol rate/Area] 59 mL/min/{1.73_m2} Low >=60 [facility] Hematocrit Auto (Bld) [Volum e fraction]on 07-06-2023 Hematocrit (Bld) [Volume fraction] 37.5 % Low 42.0-54.0 [facility] Hemoglobin [Mass/volume] in Bloodon 07-06-2023 Hemoglobin (Bld) [Mass/Vol] 12.5 g/dL Low 14.0-18.0 [facility] - Chemistry and C hemistry - challengeon 07-06-2023 Calcium [Mass/Vol] 9.0 mg/dL 8.5-10.1 [facility] Chloride [Moles/Vol] 98 mmol/L 98-107 [facility] CO2 [Moles/Vol] 27.6 mmol/L 21.0-32.[address] [facility] Creatinine [Mass/Vol] 1.17 mg/dL 0.70-1.30 [facility] GFR/1.73 sq M.predicted MDRD (S/P/Bld) [Vol rate/Area] mL/min/{1.73_m2} >=60 [facility] Glucose [Mass/Vol] 109 mg/dL High 74-106 [facility] Potassium [Moles/Vol] 5.1 mmol/L 3.5-5.1 [facility] Sodium [Moles/Vol] 134 mmol/L Low 136-145 [facility] Urea nitrogen [Mass/Vol] 23.0 mg/dL High 7.0-18.0 [facility] Urea nitrogen/Creatinine [Mass ratio] 19.7 mg/mg [facility] - Hematology and Cell countson 07-06-2023 Immature granulocytes/100 WBC (Bld) 0.4 % 0.0-0.5 [facility] Leukocytes [#/volume] correc marshal for nucleated erythrocytes in Blood by Automated counon 07-06-2023 WBC corrected for nucl RBC Auto (Bld) [#/Vol] 8.0 10 3/uL 4.0-11.0 [facility] Lymphocytes Auto (Bld) [#/Vo l]on 07-06-2023 Lymphocytes (Bld) [#/Vol] 1.8 10 3/uL 1.2-3.8 [facility] Lymphocytes/100 WBC Auto (Bl d)on 07-06-2023 Lymphocytes/100 WBC (Bld) 22.3 % 20.5-60.0 [facility] MCH Auto (RBC) [Entitic mass ]on 07-06-2023 MCH (RBC) [Entitic mass] 30.7 pg 25.9-34.0 [facility] MCHC Auto (RBC) [Mass/Vol]on 07-06-2023 MCHC (RBC) [Mass/Vol] 33.3 g/dL 29.9-35.2 [facility] MCV Auto (RBC) [Entitic vol] on 07-06-2023 MCV (RBC) [Entitic vol] 92.1 fL 80.0-94.0 [facility] Monocytes Auto (Bld) [#/Vol] on 07-06-2023 Monocytes (Bld) [#/Vol] 1.2 10 3/uL High 0.3-0.8 [facility] Monocytes/100 WBC Auto (Bld) on 07-06-2023 Monocytes/100 WBC (Bld) 15.0 % High 1.7-12.0 [facility] Neutrophils Auto (Bld) [#/Vo l]on 07-06-2023 Neutrophils (Bld) [#/Vol] 4.8 10 3/uL 1.4-6.5 [facility] Neutrophils/100 WBC Auto (Bl d)on 07-06-2023 Neutrophils/100 WBC (Bld) 59.6 % 43.0-75.0 [facility] No Panel Informationon 07-05 Eosinophils # (Auto) 0.2 10 3/uL 0.0-0.7 [facility] Immature Granulocyte # (Auto) 0.03 10 3/uL 0.00-0.03 [facility] Platelet mean volume Auto (B ld) [Entitic vol]on 07-06-2023 Platelet mean volume (Bld) [Entitic vol] 8.9 fL Low 9.5-13.5 [facility] Platelets Auto (Bld) [#/Vol] on 07-06-2023 Platelets (Bld) [#/Vol] 242 10 3/uL 150-450 [facility] RBC Auto (Bld) [#/Vol]on RBC (Bld) [#/Vol] 4.07 10 6/uL Low 4.70-6.10 [facility] Serum or plasma anion gap de terminationon 07-06-2023 Anion gap [Moles/Vol] 13.5 mmol/L [facility] US venous duplex LE RTon US venous duplex LE RT [place] [id number] Ultrasound Report Signed Patient: Norberto Washington MR#: [id number] : 1940 Acct:[id number] Age/Sex: 83 / M ADM Date: 05/15/23 Loc: ER Room: Type: [facility] ER Attending Dr: Ordering Provider: Low [...] Gus Wren MD05/16/2023 11:15 AM Dictation Location: [place] [address] Tech: Helne Malloy Transcribed By: PAUL 05/16/23 1115 Dictated By: Gus Wren MD 05/16/23 111 Signed By: 05/16/23 1115 Normal [facility] Estimated glomerular filtrat ion rate (GFR) non- Americanon 05-03-2023 GFR/1.73 sq M.predicted among non-blacks MDRD (S/P/Bld) [Vol rate/Area] mL/min/{1.73_m2} >=60 [facility] - Chemistry and C hemistry - challengeon 05-03-2023 Calcium [Mass/Vol] 8.5 mg/dL 8.5-10.1 [facility] Chloride [Moles/Vol] 100 mmol/L 98-107 [facility] CO2 [Moles/Vol] 27.6 mmol/L 21.0-32.[address] [facility] Creatinine [Mass/Vol] 1.06 mg/dL 0.70-1.30 [facility] GFR/1.73 sq M.predicted MDRD (S/P/Bld) [Vol rate/Area] mL/min/{1.73_m2} >=60 [facility] Glucose [Mass/Vol] 135 mg/dL 74-106 [facility] Potassium [Moles/Vol] 4.1 mmol/L 3.5-5.1 [facility] Sodium [Moles/Vol] 136 mmol/L 136-145 [facility] Urea nitrogen [Mass/Vol] 19.0 mg/dL 7.0-18.0 [facility] Urea nitrogen/Creatinine [Mass ratio] 17.9 mg/mg [facility] No Panel Informationon 05-03 C-Reactive Protein, Quantitative <0.50 mg/dL <=0.50 [facility] Serum or plasma anion gap de terminationon 05-03-2023 Anion gap [Moles/Vol] 12.5 mmol/L [facility] Estimated glomerular filtrat ion rate (GFR) non- Americanon 04-30-2023 GFR/1.73 sq M.predicted among non-blacks MDRD (S/P/Bld) [Vol rate/Area] mL/min/{1.73_m2} >=60 [facility] - Chemistry and C hemistry - challengeon 04-30-2023 Calcium [Mass/Vol] 8.7 mg/dL 8.5-10.1 [facility] Chloride [Moles/Vol] 101 mmol/L 98-107 [facility] CO2 [Moles/Vol] 29.2 mmol/L 21.0-32.[address] [facility] Creatinine [Mass/Vol] 1.06 mg/dL 0.70-1.30 [facility] GFR/1.73 sq M.predicted MDRD (S/P/Bld) [Vol rate/Area] mL/min/{1.73_m2} >=60 [facility] Glucose [Mass/Vol] 93 mg/dL 74-106 [facility] Potassium [Moles/Vol] 4.6 mmol/L 3.5-5.1 [facility] Sodium [Moles/Vol] 136 mmol/L 136-145 [facility] Urea nitrogen [Mass/Vol] 20.0 mg/dL 7.0-18.0 [facility] Urea nitrogen/Creatinine [Mass ratio] 18.9 mg/mg [facility] No Panel Informationon 04-30 C-Reactive Protein, Quantitative 0.50 mg/dL <=0.50 [facility] Vancomycin Level Trough 11.0 ug/mL 5.0-20.0 [facility] Serum or plasma anion gap de terminationon 04-30-2023 Anion gap [Moles/Vol] 10.4 mmol/L [facility] CNOVon 02-02-2023 CNOV Office Visit (UROLLN) -------- NORBERTO WASHINGTON ([id number]) 1940 M Date Time Provider Department 02/02/23 1:30 PM LETICIA MILIAN During your visit today, we recorded the following information about you: Pulse Blood pressure Weight 65/minute 146/70 102.1 kg Leticia Milian, [employer] 02/02/2023 2:13 PM Signed Norberto Washington [address] [facility] [address] HISTORY OF PRESENT ILLNESS: Seen 07/28/22 for [...] see lab Duration: BPH w obs/luts, UTI [employer] SYMPTOMS SCORE. 1. INCOMPLETE EMPTYING [...] Stream (imp (more content not included)... Normal [facility] Bacteria Ur Culton 3 Bacteria identified Cx Nom (U) CULTURE, URINE: No growth (<1,000 CFU/ml) Normal [facility] Comment on above: Performed By: #### 6 30-4 #### [facility] CLIA [id number] [address] [place] [address] [place] GLYCOHEMOGLOBIN A1Con 2022 ADA RECOMMENDATION SEE BELOW Normal [facility] Comment on above: Result Comment: ADA RECOMMENDED LIMIT 4.0 - 6.0 ADA THERAPEUTIC TARGET < 7.0 ACTION SUGGESTED > 7.0 Performed By: #### A 1C #### [facility] [address] [place] [address] [address] Juan Pablo Kaminski Glucose [Mass/Vol] 128 mg/dL Normal [facility] Comment on above: Performed By: #### A 1C #### [facility] [address] [place] [address] [address] Juan Pablo Kaminski HbA1c (Bld) [Mass fraction] 6.1 % Normal 4.5-6.2 [facility] Comment on above: Performed By: #### A 1C #### [facility] [address] [place] [address] [address] Juan Pablo Kaminski A1C with Estimated Average G ashokn 03-20-2022 A1C with Estimated Average Glu 128 [facility] [employer] Other A1C with Estimated Average Glu [facility] [employer] Other HbA1c (Bld) [Mass fraction] 6.1 % Normal 4.5-6.2 [facility] [employer] Other Comment on above: Performed By: #### A 1C #### [facility] [address] [place] [address] [address] Juan Pablo Kaminski GLYCOHEMOGLOBIN A1Con 2022 ADA RECOMMENDATION SEE BELOW Normal [facility] Comment on above: Result Comment: ADA RECOMMENDED LIMIT 4.0 - 6.0 ADA THERAPEUTIC TARGET < 7.0 ACTION SUGGESTED > 7.0 Performed By: #### A 1C #### [facility] [address] [place] [address] Dr. Juan Pablo Kaminski Glucose [Mass/Vol] 128 mg/dL Normal [facility] Comment on above: Performed By: #### A 1C #### [facility] [address] [place] [address] Dr. Juan Pablo Kaminski US SCROTUM W [...] LEIDY PEREIRA Date: 2021-12-25 18:32 Normal [facility] Urine culture routineOrdered By: Sam Simons on 12-19-2021 Bacteria identified Cx Nom (U) Pseudomonas aeruginosa [facility] Automated erythrocytes count in urine sediment (number/area)Ordered By: Sam Simons on 12-17-2021 RBC Auto (Urine sed) [#/Area] 1-2 [HPF] 0-4 [facility] Automated leukocytes count i n urine sediment (number/area)Ordered By: Sam Simons on 12-17-2021 WBC Auto (Urine sed) [#/Area] 20-49 [HPF] 0-4 [facility] Bilirubin Test strip Ql (U)O rdered By: Sam Simons on 12-17-2021 Bilirubin Ql (U) Negative Negative [facility] Color Auto (U)Ordered By: Micheal Simons on 12-17-2021 Color (U) Yellow Yellow [facility] Ketones Auto test strip (U) [Mass/Vol]Ordered By: Sam Simons on 12-17-2021 Ketones (U) [Mass/Vol] Negative Negative [facility] - UrinalysisOrder ed By: Sam Simons on 12-17-2021 Hyaline casts LM Ql (Urine sed) 0-8 [LPF] 0-8 [facility] Nitrite Test strip Ql (U)Ord ered By: Sam Simons on 12-17-2021 Nitrite Ql (U) Negative Negative [facility] Protein Auto test strip (U) [Mass/Vol]Ordered By: Sam Simons on 12-17-2021 Protein (U) [Mass/Vol] Negative Negative [facility] Specific gravity Auto test s trip (U) [Rel density]Ordered By: Sam Simons on 12-17-2021 Specific gravity (U) [Rel density] 1.016 1.001-1.030 [facility] Squamous epithelial cells de tection in urine sediment by light microscopyOrdered By: Sam Simons on 12-17-2021 Epithelial cells.squamous LM Ql (Urine sed) 0-1 [HPF] 0-2 [facility] Urine bacteria detection by automated methodOrdered By: Sam Simons on 12-17-2021 Bacteria Auto Ql (U) None seen None Seen [facility] Urine clarity by refractomet ry automatedOrdered By: Sam Simons on 12-17-2021 Clarity Refractometry automated (U) Clear Clear [facility] Urine glucose measurement by automated test strip (mass/volume)Ordered By: Sam Simons on 12-17-2021 Glucose Auto test strip (U) [Mass/Vol] Normal mg/dL Normal [facility] Urine hemoglobin detection b y automated test stripOrdered By: Sam Simons on 12-17-2021 Hemoglobin Auto test strip Ql (U) Negative Negative [facility] Urine leukocyte esterase det ection by automated test stripOrdered By: Sam Simons on 12-17-2021 Leukocyte esterase Auto test strip Ql (U) 4+ Negative [facility] Urobilinogen Auto test strip (U) [Mass/Vol]Ordered By: Sam Simons on 12-17-2021 Urobilinogen (U) [Mass/Vol] Normal mg/dL Normal [facility] pH Auto test strip (U)Ordere d By: Sam Simons on 12-17-2021 pH (U) 6.0 [pH] 5.0-9.0 [facility] Urine culture routineOrdered By: Davis Cervantes on 12-13-2021 Bacteria identified Cx Nom (U) No Growth 2 Days [facility] Automated erythrocytes count in urine sediment (number/area)Ordered By: Davis Cervantes on 12-11-2021 RBC Auto (Urine sed) [#/Area] 20-49 [HPF] 0-4 [facility] Automated leukocytes count i n urine sediment (number/area)Ordered By: Davis Cervantes on 12-11-2021 WBC Auto (Urine sed) [#/Area] 10-19 [HPF] 0-4 [facility] Basophils Auto (Bld) [#/Vol] Ordered By: Davis Cervantes on 12-11-2021 Basophils (Bld) [#/Vol] 0.1 10*3/uL 0.0-0.2 [facility] Basophils/100 WBC Auto (Bld) Ordered By: Davis Cervantes on 12-11-2021 Basophils/100 WBC (Bld) 1.2 % . [facility] Bilirubin Test strip Ql (U)O rdered By: Davis Cervantes on 12-11-2021 Bilirubin Ql (U) Negative Negative [facility] Blood hemoglobin measurement (mass/volume)Ordered By: Davis Cervantes on 12-11-2021 Hemoglobin (Bld) [Mass/Vol] 13.3 g/dL 13.0-17.0 [facility] Blood leukocytes automated c ount (number/volume)Ordered By: Davis Cervantes on 12-11-2021 WBC (Bld) [#/Vol] 8.2 10*3/uL 4.5-11.0 [facility] Color Auto (U)Ordered By: Mary Cervantes on 12-11-2021 Color (U) Yellow Yellow [facility] Creatinine and Glomerular fi ltration rate.predicted panel (S/P/Bld)Ordered By: Davis Cervantes on 12-11-2021 Creatinine [Mass/Vol] 1.16 mg/dL 0.64-1.27 [facility] Eosinophils Auto (Bld) [#/Vo l]Ordered By: Davis Cervantes on 12-11-2021 Eosinophils (Bld) [#/Vol] 0.2 10*3/uL 0.0-0.45 [facility] Eosinophils/100 WBC Auto (Bl d)Ordered By: Davis Cervantes on 12-11-2021 Eosinophils/100 WBC (Bld) 2.9 % . [facility] Erythrocyte distribution wid th Auto (RBC) [Ratio]Ordered By: Davis Cervantes on 12-11-2021 Erythrocyte distribution width (RBC) [Ratio] 11.8 % 12.0-14.8 [facility] Estimated glomerular filtrat ion rate (GFR) non- AmericanOrdered By: Davis Cervantes on 12-11-2021 GFR/1.73 sq M.predicted among non-blacks MDRD (S/P/Bld) [Vol rate/Area] 60 mL/Min [facility] Hematocrit Auto (Bld) [Volum e fraction]Ordered By: Davis Cervantes on 12-11-2021 Hematocrit (Bld) [Volume fraction] 39.6 % 38.8-50.0 [facility] Ketones Auto test strip (U) [Mass/Vol]Ordered By: Davis Cervantes on 12-11-2021 Ketones (U) [Mass/Vol] Negative Negative [facility] - Hematology and Cell countsOrdered By: Davis Cervantes on 12-11-2021 Nucleated RBC/100 WBC (Bld) [Ratio] 0.0 % 0-0.5 [facility] - UrinalysisOrder ed By: Davis Cervantes on 12-11-2021 Hyaline casts LM Ql (Urine sed) 0-8 [LPF] 0-8 [facility] Lymphocytes Auto (Bld) [#/Vo l]Ordered By: Davis Cervantes on 12-11-2021 Lymphocytes (Bld) [#/Vol] 1.9 10*3/uL 1.00-4.8 [facility] Lymphocytes/100 WBC Auto (Bl d)Ordered By: Davis Cervantes on 12-11-2021 Lymphocytes/100 WBC (Bld) 23.3 % . [facility] MCH Auto (RBC) [Entitic mass ]Ordered By: Davis Cervantes on 12-11-2021 MCH (RBC) [Entitic mass] 32.0 pg 27.5-35.2 [facility] MCHC Auto (RBC) [Mass/Vol]Or dered By: Davis Cervantes on 12-11-2021 MCHC (RBC) [Mass/Vol] 33.6 g/dL 32.5-35.6 [facility] MCV Auto (RBC) [Entitic vol] Ordered By: Davis Cervantes on 12-11-2021 MCV (RBC) [Entitic vol] 95.1 fL 83.5-101 [facility] Monocytes Auto (Bld) [#/Vol] Ordered By: Davis Cervantes on 12-11-2021 Monocytes (Bld) [#/Vol] 1.1 10*3/uL 0.0-0.8 [facility] Monocytes/100 WBC Auto (Bld) Ordered By: Davis Cervantes on 12-11-2021 Monocytes/100 WBC (Bld) 13.6 % . [facility] Neutrophils Auto (Bld) [#/Vo l]Ordered By: Davis Cervantes on 12-11-2021 Neutrophils (Bld) [#/Vol] 4.8 10*3/uL 1.8-7.7 [facility] Neutrophils/100 WBC Auto (Bl d)Ordered By: Davis Ceravntes on 12-11-2021 Neutrophils/100 WBC (Bld) 59.0 % . [facility] Nitrite Test strip Ql (U)Ord ered By: Davis Cervantes on 12-11-2021 Nitrite Ql (U) Negative Negative [facility] No Panel InformationOrdered By: Davis Cervantes on 12-11-2021 Estimated GFR () > 60 mL/Min [facility] Comment on above: GFR estimated refere nce range: According to KDOQI guidelines, <60 ml/min/1.73m2 is sufficient to diagnose a patient with chronic kidney disease. Pharmacy Creatinine Clearance (Chem 57.67 [facility] Platelet mean volume Auto (B ld) [Entitic vol]Ordered By: Davis Cervantes on 12-11-2021 Platelet mean volume (Bld) [Entitic vol] 7.0 fL 6.6-10.1 [facility] Platelets Auto (Bld) [#/Vol] Ordered By: Davis Cervantes on 12-11-2021 Platelets (Bld) [#/Vol] 266 10*3/uL 150-450 [facility] Protein Auto test strip (U) [Mass/Vol]Ordered By: Davis Cervantes on 12-11-2021 Protein (U) [Mass/Vol] Negative Negative [facility] RBC Auto (Bld) [#/Vol]Ordere d By: Davis Cervantes on 12-11-2021 RBC (Bld) [#/Vol] 4.17 10*6/uL 3.90-5.60 [facility] Serum or plasma anion gap de terminationOrdered By: Davis Cervantes on 12-11-2021 Anion gap [Moles/Vol] 12.2 mmol/L 6.0-15.0 [facility] Serum or plasma calcium maggy urement (mass/volume)Ordered By: Davis Cervantes on 12-11-2021 Calcium [Mass/Vol] 9.0 mg/dL 8.2-10.2 [facility] Serum or plasma chloride duran surement (moles/volume)Ordered By: Davis Cervantes on 12-11-2021 Chloride [Moles/Vol] 96 mmol/L 95-114 [facility] Serum or plasma glucose maggy urement (mass/volume)Ordered By: Davis Cervantes on 12-11-2021 Glucose [Mass/Vol] 131 mg/dL 70-100 [facility] Comment on above: ADA recommended refe rence rangeRandom Glucose Reference Range is dependent on time and content of last meal. Glucose of more than 200 mg/dL in a nonstressed, ambulatory subject supports the diagnosis of Diabetes Mellitus. Serum or plasma potassium me asurement (moles/volume)Ordered By: Davis Cervantes on 12-11-2021 Potassium [Moles/Vol] 4.5 mmol/L 3.5-5.1 [facility] Serum or plasma sodium measu rement (moles/volume)Ordered By: Davis Cervantes on 12-11-2021 Sodium [Moles/Vol] 131 mmol/L 136-146 [facility] Serum or plasma total carbon dioxide measurement (moles/volume)Ordered By: Davis Cervantes on 12-11-2021 CO2 [Moles/Vol] 27.3 mmol/L 22.0-30.[address] [facility] Serum or plasma urea nitroge n measurement (mass/volume)Ordered By: Davis Cervantes on 12-11-2021 Urea nitrogen [Mass/Vol] 20 mg/dL 9-23 [facility] Specific gravity Auto test s trip (U) [Rel density]Ordered By: Davis Cervantes on 12-11-2021 Specific gravity (U) [Rel density] 1.014 1.001-1.030 [facility] Squamous epithelial cells de tection in urine sediment by light microscopyOrdered By: Davis Cervantes on 12-11-2021 Epithelial cells.squamous LM Ql (Urine sed) 0-1 [HPF] 0-2 [facility] Urine bacteria detection by automated methodOrdered By: Davis Cervantes on 12-11-2021 Bacteria Auto Ql (U) None seen None Seen [facility] Urine clarity by refractomet ry automatedOrdered By: Davis Cervantes on 12-11-2021 Clarity Refractometry automated (U) Clear Clear [facility] Urine glucose measurement by automated test strip (mass/volume)Ordered By: Davis Cervantes on 12-11-2021 Glucose Auto test strip (U) [Mass/Vol] Normal mg/dL Normal [facility] Urine hemoglobin detection b y automated test stripOrdered By: Davis Cervantes on 12-11-2021 Hemoglobin Auto test strip Ql (U) 2+ Negative [facility] Urine leukocyte esterase det ection by automated test stripOrdered By: Davis Cervantes on 12-11-2021 Leukocyte esterase Auto test strip Ql (U) 2+ Negative [facility] Urobilinogen Auto test strip (U) [Mass/Vol]Ordered By: Davis Cervantes on 12-11-2021 Urobilinogen (U) [Mass/Vol] Normal mg/dL Normal [facility] pH Auto test strip (U)Ordere d By: Davis Cervantes on 12-11-2021 pH (U) 5.5 [pH] 5.0-9.0 [facility] ED NOTEon 11-27-2021 ED NOTE HNO ID: [id number] Author: Alyx Vergara RN Service: Nursing Author Type: Registered Nurse Type: ED Notes Filed: 11/26/2021 10:21 PM Note Text: Discharge instructions and follow up appointments reviewed. Pt verbalized understanding and states no concerns or questions at this time. VSS. Spoke with Asha about elevated BP. Stated that it's okay for pt to go and have him f/u with his PCP. Normal [facility] ED NOTE HNO ID: [id number] Author: Alyx Vergara RN Service: Nursing Author Type: Registered Nurse Type: ED Notes Filed: 11/26/2021 10:10 PM Note Text: Replaced hamilton bag with leg bag. Normal [facility] Bacteria Ur Culton 2 Bacteria identified Cx Nom (U) [id number] Abnormal [facility] Comment on above: Order Comment: Speci men Type: URINE SPECIMEN Ordering Facility: [facility] Address: [address] [place] [address] [place] [address] Result Comment: >=10 0,000 CFU/ml Klebsiella oxytoca Performed By: #### 6 30-4, 06243-6 #### [facility] CLIA [id number] [address] [place] [address] [place] Bacterial susceptibility maldonado el (Isol)on 11-26-2021 Ampicillin [Susc] Resistant [facility] Comment on above: Order Comment: Order ing Facility: [facility] Address: [address] [place] [address] Performed By: #### 6 30-4, 30403-3 #### [facility] CLIA [id number] [address] [place] [address] [place] Ampicillin+Sulbactam [Susc] 4 Susceptible Susceptible <=8 , Intermediate >8 , Resistant >16 [facility] Comment on above: Order Comment: Order ing Facility: [facility] Address: [address] [place] [address] Performed By: #### 6 30-4, 48769-9 #### [facility] CLIA [id number] [address] [place] [address] [place] ceFAZolin [Susc] <=4 Susceptible Susceptible 0-16 , Intermediate <0 or >16 , Resistant >16 [facility] Comment on above: Order Comment: Order ing Facility: [facility] Address: [address] [place] [address] Performed By: #### 6 30-4, 56288-9 #### [facility] CLIA [id number] [address] [place] [address] [place] Cefepime [Susc] <=1 Susceptible Susceptible <=2 , Intermediate >2 , Resistant >=16 [facility] Comment on above: Order Comment: Order ing Facility: [facility] Address: [address] [place] [address] Performed By: #### 6 30-4, 23826-7 #### [facility] CLIA [id number] [address] [place] [address] [place] cefTRIAXone [Susc] <=1 Susceptible Susceptib le <=1 , Intermediate >1 , Resistant >=4 [facility] Comment on above: Order Comment: Order ing Facility: [facility] Address: [address] [place] [address] Performed By: #### 6 30-4, 87669-0 #### [facility] CLIA [id number] [address] [place] [address] [place] Ciprofloxacin [Susc] <=0.25 Susceptible Suscept ible <0.5 , Intermediate >=.5 , Resistant >=1 [facility] Comment on above: Order Comment: Order ing Facility: [facility] Address: [address] [place] [address] Performed By: #### 6 30-4, 16620-2 #### [facility] CLIA [id number] [address] [place] [address] [place] Ertapenem ROCIO [Susc] <=0.5 Susceptible Suscept ible <=0.5 , Intermediate >.5 , Resistant >1 [facility] Comment on above: Order Comment: Order ing Facility: [facility] Address: [address] [place] [address] Performed By: #### 6 30-4, 16753-2 #### [facility] CLIA [id number] [address] [place] [address] [place] Gentamicin [Susc] <=1 Susceptible Susceptibl e <=4 , Intermediate >4 , Resistant >8 [facility] Comment on above: Order Comment: Order ing Facility: [facility] Address: [address] [place], [place] [id number] Performed By: #### 6 30-4, 95273-2 #### [facility] CLIA [id number] [address] [place] [address] [place] Meropenem [Susc] <=0.25 Susceptible Susceptible <=1 , Intermediate >1 , Resistant >2 [facility] Comment on above: Order Comment: Order ing Facility: [facility] Address: [address] [place], [place] [id number] Performed By: #### 6 30-4, 71239-5 #### [facility] CLIA [id number] [address] [place] [address] Nitrofurantoin [Susc] 32 Susceptible Suscep tible <=32 , Intermediate >32 , Resistant >64 [facility] Comment on above: Order Comment: Order ing Facility: [facility] Address: [address] [place], [place] [id number] Performed By: #### 6 30-4, 42583-4 #### [facility] CLIA [id number] [address] [place] [address] [place] Piperacillin+Sulbactam ROCIO [Susc] <=4 Susceptible Susceptible <=16 , Intermediate >16 , Resistant >64 [facility] Comment on above: Order Comment: Order ing Facility: [facility] Address: [address] [place], [place] [address] Performed By: #### 6 30-4, 81386-8 #### [facility] CLIA [id number] [address] [place] [address] Tobramycin [Susc] <=1 Susceptible Susceptibl e <=4 , Intermediate >4 , Resistant >8 [facility] Comment on above: Order Comment: Order ing Facility: [facility] Address: [address] [place], [place] [address] Performed By: #### 6 30-4, 12161-9 #### [facility] CLIA [id number] [address] [place] [address] [place] Trimethoprim+Sulfametho xazole [Susc] <=20 Susceptible Susceptible <=40 , Resistant >40 [facility] Comment on above: Order Comment: Order ing Facility: [facility] Address: [address] [place], [place] [address] Performed By: #### 6 30-4, 02145-5 #### [facility] CLIA [id number] [address] [place] [address] OF [facility] ED NOTEon 11-26-2021 ED NOTE HNO ID: [id number] Author: Alyx Vergara RN Service: Nursing Author Type: Registered Nurse Type: ED Notes Filed: 11/26/2021 9:20 PM Note Text: Replaced hamilton per Asha BARR. [facility] ED NOTE HNO ID: [id number] Author: Alyx Vergara RN Service: Nursing Author Type: Registered Nurse Type: ED Notes Filed: 11/26/2021 9:01 PM Note Text: Was instructed to bladder scan pt due to pt having no urine in replaced bag. Bladder scanned 261 mL's the first time. Then 214 mL's the second time. Made Asha ESQUIVEL) aware. [facility] ED NOTE HNO ID: [id number] Author: Alyx Vergara RN Service: Nursing Author Type: Registered Nurse Type: ED Notes Filed: 11/26/2021 9:49 PM Note Text: Flushed 20 mL Hamilton. No leaking noted around tube. [facility] ED PROV NOTEon 11-26-2021 ED PROV NOTE HNO ID: [id number] Author: Asha Clinton PA-C Service: ? Author Type: Physician Kennel Assistant Type: ED Provider Notes Filed: 11/26/2021 10:26 [...] culture. Previous and only urine culture in [facility] on 11/07 had no growth. Given dose of Keflex. Prescription for this E scripted to pharmacy. Patient discharged with Hamilton in place, leg bag instructions. Elevated blood pressure noted and improved during stay. No CP, sob, dizziness or any other complaints. Recommend f/u with pcp for recheck. All questions and concerns addre (more content not included)... Normal [facility] Urinalysis complete panel (U )on 11-26-2021 Bacteria LM.HPF (Urine sed) [#/Area] Many Abnormal None Seen [facility] Comment on above: Order Comment: Speci men Type: URINE SPECIMEN Ordering Facility: [facility] Address: [address] [place] [id number] Performed By: #### 6 30-4, 53711-6 #### [facility] CLIA [id number] [address] [place] [address] [place] Bilirubin Ql (U) Negative Normal Negative [facility] Comment on above: Order Comment: Speci men Type: URINE SPECIMEN Ordering Facility: [facility] Address: [address] [place] [address] Performed By: #### 6 30-4, 86901-4 #### [facility] CLIA [id number] [address] [place] [address] [place] Clarity (Unsp spec) Cloudy Abnormal Clear [facility] Comment on above: Order Comment: Speci men Type: URINE SPECIMEN Ordering Facility: [facility] Address: [address] [place] [address] Performed By: #### 6 30-4, 79105-3 #### [facility] CLIA [id number] [address] [place] [address] [place] Color (U) Yellow Normal Yellow [facility] Comment on above: Order Comment: Speci men Type: URINE SPECIMEN Ordering Facility: [facility] Address: [address] [place] [address] Performed By: #### 6 30-4, 82960-6 #### [facility] CLIA [id number] [address] [place] [address] [place] Epithelial cells LM.HPF (Urine sed) [#/Area] Few Normal [facility] Comment on above: Order Comment: Speci men Type: URINE SPECIMEN Ordering Facility: [facility] Address: [address] [place], [place] [address] Performed By: #### 6 30-4, 13319-3 #### [facility] CLIA [id number] [address] [place] [address] [place] Glucose Test strip (U) [Mass/Vol] Negative Normal Negative [facility] Comment on above: Order Comment: Speci men Type: URINE SPECIMEN Ordering Facility: [facility] Address: [address] [place], [place] [address] Performed By: #### 6 30-4, 73718-3 #### [facility] CLIA [id number] [address] [place] [address] [place] Hemoglobin Ql (U) 2+ Abnormal Negative [facility] Comment on above: Order Comment: Speci men Type: URINE SPECIMEN Ordering Facility: [facility] Address: [address] [place], [place] [address] Performed By: #### 6 30-4, 44675-2 #### [facility] CLIA [id number] [address] [place] [address] [place] Ketones Ql (U) Negative Normal Negative [facility] Comment on above: Order Comment: Speci men Type: URINE SPECIMEN Ordering Facility: [facility] Address: [address] [place] [address] Performed By: #### 6 30-4, 73618-5 #### [facility] CLIA [id number] [address] [place] [address] [place] Leukocyte esterase Test strip Ql (U) 3+ Abnormal Negative [facility] Comment on above: Order Comment: Speci men Type: URINE SPECIMEN Ordering Facility: [facility] Address: [address] [place] [address] Performed By: #### 6 30-4, 64422-6 #### [facility] CLIA [id number] [address] [place] [address] [place] Nitrite Ql (U) Positive Abnormal Negative [facility] Comment on above: Order Comment: Speci men Type: URINE SPECIMEN Ordering Facility: [facility] Address: [address] [place] [address] Performed By: #### 6 30-4, 29572-1 #### [facility] CLIA [id number] [address] [place] [address] [place] pH (U) 5.5 [pH] Normal 5.0-8.0 [facility] Comment on above: Order Comment: Speci men Type: URINE SPECIMEN Ordering Facility: [facility] Address: [address] [place] [address] Performed By: #### 6 30-4, 37215-0 #### [facility] CLIA [id number] [address] [place] [address] [place] Protein (U) [Mass/Vol] Normal [facility] Comment on above: Order Comment: Speci men Type: URINE SPECIMEN Ordering Facility: [facility] Address: [address] [place] [address] Result Comment: Visi ble blood causes falsely elevated results for analyte Protein. Due to this limitation, Protein will not be reported for patients whose urine contains visible blood. Performed By: #### 6 30-4, 27526-0 #### [facility] CLIA [id number] [address] [place] [address] [place] RBC LM.HPF (Urine sed) [#/Area] 6-10 /HPF Abnormal 0-3 /HPF [facility] Comment on above: Order Comment: Speci men Type: URINE SPECIMEN Ordering Facility: [facility] Address: [address] [place] [address] Performed By: #### 6 30-4, 04918-1 #### [facility] CLIA [id number] [address] [place] [address] [place] Specific gravity (U) [Rel density] 1.009 Normal 1.005-1.030 [facility] Comment on above: Order Comment: Speci men Type: URINE SPECIMEN Ordering Facility: [facility] Address: [address] [place], [place] [address] Performed By: #### 6 30-4, 70159-0 #### [facility] CLIA [id number] [address] [place] [address] [place] Urobilinogen Ql (U) 0.2 EU/dL Normal 0.2-1.0 EU/dL [facility] Comment on above: Order Comment: Speci men Type: URINE SPECIMEN Ordering Facility: [facility] Address: [address] [place] [address] Performed By: #### 6 30-4, 11929-9 #### [facility] CLIA [id number] [address] [place] [address] [place] WBC LM.HPF (Urine sed) [#/Area] 11-25 /HPF Abnormal 0-5 /HPF [facility] Comment on above: Order Comment: Speci men Type: URINE SPECIMEN Ordering Facility: [facility] Address: [address] [place] [address] Performed By: #### 6 30-4, 42426-6 #### [facility] CLIA [id number] [address] [place] [address] [place] Covid-19 PCR (CVDTB)on SARS-CoV-2 (COVID-19) RNA LUANNE+probe Ql (Unsp spec) Not detected Normal NOT DETECTED [facility] Comment on above: Result Comment: This test is not yet approved or cleared by the [place] FDA. When there are no FDA-approved or cleared tests available, and other criteria are met, FDA can make tests available under an emergency access mechanism called an Emergency Use Authorization (EUA). The EUA for this test is supported by the Die [employer] Operator of Health and Human Service's (HHS's) declaration [...] SARS-CoV-2. Performed By: #### C VDTBH #### [facility] [address] [place] [address] Dr. Juan Pablo Kaminski Bacteria Ur Culton 2 Bacteria identified Cx Nom (U) No growth (<1,000 CFU/ml) Normal [facility] Comment on above: Order Comment: Speci men Type: URINE SPECIMEN Ordering Facility: [facility] Address: [address] [place], [place] [address] Performed By: #### 6 30-4 #### [facility] CLIA [id number] [address] [place] [address] [place] Basic metabolic 2000 panelon 11-07-2021 Anion gap [Moles/Vol] 10 mmol/L Normal 9-18 [facility] Comment on above: Order Comment: Speci men Type: URINE SPECIMEN Ordering Facility: [facility] Address: [address] [place], [place] [address] Performed By: #### 6 30-4, 02699-4 #### [facility] CLIA [id number] [address] [place] [address] [place] Calcium [Mass/Vol] 9.1 mg/dL Normal 8.5-10.2 [facility] Comment on above: Order Comment: Speci men Type: URINE SPECIMEN Ordering Facility: [facility] Address: [address] [place], [place] [address] Performed By: #### 6 30-4, 97360-4 #### [facility] CLIA [id number] [address] [place] [address] [place] Chloride [Moles/Vol] 95 mmol/L Low 97-105 [facility] Comment on above: Order Comment: Speci men Type: URINE SPECIMEN Ordering Facility: [facility] Address: [address] [place], [place] [address] Performed By: #### 6 30-4, 06191-5 #### [facility] CLIA [id number] [address] [place] [address] [place] CO2 [Moles/Vol] 25 mmol/L Normal 22-30 [facility] Comment on above: Order Comment: Speci men Type: URINE SPECIMEN Ordering Facility: [facility] Address: [address] [place] [address] Performed By: #### 6 30-4, 61284-2 #### [facility] CLIA [id number] [address] [place] [address] [place] Creatinine [Mass/Vol] 1.25 mg/dL High 0.73-1.22 [facility] Comment on above: Order Comment: Speci men Type: URINE SPECIMEN Ordering Facility: [facility] Address: [address] [place] [address] Performed By: #### 6 30-4, 20701-3 #### [facility] CLIA [id number] [address] [place] [address] [place] ESTIMATED GLOMERULAR FILTRATION RATE 57 mL/min/1.73m??? Low >=60 [facility] Comment on above: Order Comment: Speci men Type: URINE SPECIMEN Ordering Facility: [facility] Address: [address] [place] [address] Result Comment: Annalise mated Glomerular Filtration Rate [...] actual GFR. Performed By: #### 6 30-4, 11530-8 #### [facility] CLIA [id number] [address] [place] [address] [place] Glucose [Mass/Vol] 129 mg/dL High 74-99 [facility] Comment on above: Order Comment: Speci men Type: URINE SPECIMEN Ordering Facility: [facility] Address: [address] [place] [address] Result Comment: The [place] Diabetes Association (ADA) provides guidance for cutoff [...] Standards of Medical Care in Diabetes 2016, [place] [employer]. Diabetes Care. 2016.39(Suppl 1). Performed By: #### 6 30-4, 23164-7 #### [facility] CLIA [id number] [address] [place] [address] [place] Potassium [Moles/Vol] 4.6 mmol/L Normal 3.7-5.1 [facility] Comment on above: Order Comment: Speci men Type: URINE SPECIMEN Ordering Facility: [facility] Address: [address] [place] [address] Performed By: #### 6 30-4, 56278-1 #### [facility] CLIA [id number] [address] [place] [address] [place] Sodium [Moles/Vol] 130 mmol/L Low 136-144 [facility] Comment on above: Order Comment: Speci men Type: URINE SPECIMEN Ordering Facility: [facility] Address: [address] [place] [address] Performed By: #### 6 30-4, 71532-1 #### [facility] CLIA [id number] [address] [place] [address] [place] Urea nitrogen [Mass/Vol] 23 mg/dL Normal 9-24 [facility] Comment on above: Order Comment: Speci men Type: URINE SPECIMEN Ordering Facility: [facility] Address: [address] [place] [address] Performed By: #### 6 30-4, 15384-8 #### [facility] CLIA [id number] [address] [place] [address] [place] CBC W Auto Differential pane l (Bld)on 11-07-2021 Basophils/100 WBC (Bld) 0.0 % Normal [facility] Comment on above: Order Comment: Speci men Type: URINE SPECIMEN Ordering Facility: [facility] Address: [address] [place] [address] Performed By: #### 6 30-4, 64587-5 #### [facility] CLIA [id number] [address] [place] [address] [place] Differential cell count method Nom (Bld) Manual Normal [facility] Comment on above: Order Comment: Speci men Type: URINE SPECIMEN Ordering Facility: [facility] Address: [address] [place] [address] Performed By: #### 6 30-4, 97473-2 #### [facility] CLIA [id number] [address] [place] [address] [place] Eosinophils (Bld) [#/Vol] 0.10 10*3/uL Normal <0.46 [facility] Comment on above: Order Comment: Speci men Type: URINE SPECIMEN Ordering Facility: [facility] Address: [address] [place] [address] Performed By: #### 6 30-4, 91261-3 #### [facility] CLIA [id number] [address] [place] [address] [place] Eosinophils/100 WBC (Bld) 1.0 % Normal [facility] Comment on above: Order Comment: Speci men Type: URINE SPECIMEN Ordering Facility: [facility] Address: [address] [place], [place] [address] Performed By: #### 6 30-4, 56159-4 #### [facility] CLIA [id number] [address] [place] [address] [place] Erythrocyte distribution width (RBC) [Ratio] 11.5 % Normal 11.5-15.0 [facility] Comment on above: Order Comment: Speci men Type: URINE SPECIMEN Ordering Facility: [facility] Address: [address] [place] [address] Performed By: #### 6 30-4, 66019-6 #### [facility] CLIA [id number] [address] [place] [address] [place] Hematocrit (Bld) [Volume fraction] 39.8 % Normal 39.0-51.0 [facility] Comment on above: Order Comment: Speci men Type: URINE SPECIMEN Ordering Facility: [facility] Address: [address] [place] [address] Performed By: #### 6 30-4, 73957-1 #### [facility] CLIA [id number] [address] [place] [address] [place] Hemoglobin (Bld) [Mass/Vol] 13.4 g/dL Normal 13.0-17.0 [facility] Comment on above: Order Comment: Speci men Type: URINE SPECIMEN Ordering Facility: [facility] Address: [address] [place] [address] Performed By: #### 6 30-4, 26625-3 #### [facility] CLIA [id number] [address] [place] [address] [place] Lymphocytes (Bld) [#/Vol] 1.67 10*3/uL Normal 1.00-4.00 [facility] Comment on above: Order Comment: Speci men Type: URINE SPECIMEN Ordering Facility: [facility] Address: [address] [place] [address] Performed By: #### 6 30-4, 21026-6 #### [facility] CLIA [id number] [address] [place] [address] [place] Lymphocytes/100 WBC (Bld) 17.0 % Normal [facility] Comment on above: Order Comment: Speci men Type: URINE SPECIMEN Ordering Facility: [facility] Address: [address] [place], [place] [address] Performed By: #### 6 30-4, 41076-4 #### [facility] CLIA [id number] [address] [place] [address] STATES [facility] MCH (RBC) [Entitic mass] 31.5 pg Normal 26.0-34.0 [facility] Comment on above: Order Comment: Speci men Type: URINE SPECIMEN Ordering Facility: [facility] Address: [address] [place], [place] [address] Performed By: #### 6 30-4, 92939-5 #### [facility] CLIA [id number] [address] [place] [address] [place] MCHC (RBC) [Mass/Vol] 33.7 g/dL Normal 30.5-36.0 [facility] Comment on above: Order Comment: Speci men Type: URINE SPECIMEN Ordering Facility: [facility] Address: [address] [place] [address] Performed By: #### 6 30-4, 84693-6 #### [facility] CLIA [id number] [address] [place] [address] [place] MCV (RBC) [Entitic vol] 93.4 fL Normal 80.0-100.0 [facility] Comment on above: Order Comment: Speci men Type: URINE SPECIMEN Ordering Facility: [facility] Address: [address] [place], [place] [address] Performed By: #### 6 30-4, 43333-0 #### [facility] CLIA [id number] [address] [place] [address] [place] Neutrophils (Bld) [#/Vol] 6.29 10*3/uL Normal 1.45-7.50 [facility] Comment on above: Order Comment: Speci men Type: URINE SPECIMEN Ordering Facility: [facility] Address: [address] [place], [place] [address] Performed By: #### 6 30-4, 04570-0 #### [facility] CLIA [id number] [address] [place] [address] [place] Neutrophils/100 WBC (Bld) 64.0 % Normal [facility] Comment on above: Order Comment: Speci men Type: URINE SPECIMEN Ordering Facility: [facility] Address: [address] [place] [address] Performed By: #### 6 30-4, 31326-9 #### [facility] CLIA [id number] [address] [place] [address] [place] Nucleated RBC/100 WBC (Bld) [Ratio] 0.0 /100 WBC Normal [facility] Comment on above: Order Comment: Speci men Type: URINE SPECIMEN Ordering Facility: [facility] Address: [address] [place] [address] Performed By: #### 6 30-4, 81755-4 #### [facility] CLIA [id number] [address] [place] [address] [place] PLATELET ESTIMATE Adequate Normal [facility] Comment on above: Order Comment: Speci men Type: URINE SPECIMEN Ordering Facility: [facility] Address: [address] [place], [place] [address] Performed By: #### 6 30-4, 58224-2 #### [facility] CLIA [id number] [address] [place] [address] [place] Platelet mean volume (Bld) [Entitic vol] 10.2 fL Normal 9.0-12.7 [facility] Comment on above: Order Comment: Speci men Type: URINE SPECIMEN Ordering Facility: [facility] Address: [address] [place] [address] Performed By: #### 6 30-4, 95608-9 #### [facility] CLIA [id number] [address] [place] [address] [place] Platelets (Bld) [#/Vol] 258 10*3/uL Normal 150-400 [facility] Comment on above: Order Comment: Speci men Type: URINE SPECIMEN Ordering Facility: [facility] Address: [address] [place], [place] [address] Performed By: #### 6 30-4, 99436-9 #### [facility] CLIA [id number] [address] [place] [address] [place] RBC (Bld) [#/Vol] 4.26 10*6/uL Normal 4.20-6.00 [facility] Comment on above: Order Comment: Speci men Type: URINE SPECIMEN Ordering Facility: [facility] Address: [address] [place] [address] Performed By: #### 6 30-4, 66625-6 #### [facility] CLIA [id number] [address] [place] [address] [place] RED CELL MORPH Reviewed: unremarkable Normal [facility] Comment on above: Order Comment: Speci men Type: URINE SPECIMEN Ordering Facility: [facility] Address: [address] [place], [place] [address] Performed By: #### 6 30-4, 31314-7 #### [facility] CLIA [id number] [address] [place] [address] [place] WAM - ABS BASO 0.00 k/uL Normal <0.11 [facility] Comment on above: Order Comment: Speci men Type: URINE SPECIMEN Ordering Facility: [facility] Address: [address] [place], [place] [address] Performed By: #### 6 30-4, 43906-6 #### [facility] CLIA [id number] [address] [place] [address] [place] WAM - ABS MONO 1.77 k/uL High <0.87 [facility] Comment on above: Order Comment: Speci men Type: URINE SPECIMEN Ordering Facility: [facility] Address: [address] [place], [place] [address] Performed By: #### 6 30-4, 88428-7 #### [facility] CLIA [id number] [address] [place] [address] [place] WAM - MONO% 18.0 % Normal [facility] Comment on above: Order Comment: Speci men Type: URINE SPECIMEN Ordering Facility: [facility] Address: [address] [place] [address] Performed By: #### 6 30-4, 18026-7 #### [facility] CLIA [id number] [address] [place] [address] [place] WAM ABSOLUTE NRBC <0.01 Normal <0.01 [facility] Comment on above: Order Comment: Speci men Type: URINE SPECIMEN Ordering Facility: [facility] Address: [address] [place] [address] Performed By: #### 6 30-4, 61808-3 #### [facility] CLIA [id number] [address] [place] [address] [place] WBC (Bld) [#/Vol] 9.83 10*3/uL Normal 3.70-11.00 [facility] Comment on above: Order Comment: Speci men Type: URINE SPECIMEN Ordering Facility: [facility] Address: [address] [place] [address] Performed By: #### 6 30-4, 20438-0 #### [facility] CLIA [id number] [address] [place] [address] [place] ED NOTEon 11-07-2021 ED NOTE HNO ID: [id number] Author: Yoshi Schumacher RN Service: ? Author Type: Registered Nurse Type: ED Notes Filed: 11/07/2021 5:14 PM Note Text: Pt provided with discharged instructions. Medications gone over and all questions answered. Pt. Left with steady gait with friend for a ride. Normal [facility] ED NOTE HNO ID: [id number] Author: Flaquita Donnelly RN Service: ? Author Type: Registered Nurse Type: ED Notes Filed: 11/07/2021 1:24 PM Note Text: Pt to ED for urinary retention. Pt had appointment with Urology on Wednesday, but was not able to be seen. Pt denies pain, but reports pressure in the bladder. Pt states he is not able to urinate completely and reports dribbling. [facility] ED PROV NOTEon 11-07-2021 ED PROV NOTE HNO ID: [id number] Author: Keely Gutierrez DO Service: Emergency Medicine [...] this Wednesday with his urologist out of [place] but was notified that his urologist had [...] Abnormal; Notable for the following components: Abs Benson 1.77 (*) <0.87 k/uL All other components [...] cysts one of which is mildly complex. Bowl Topper: LIANA Transcribe Date/Time: Nov 07 2021 2:57P [...] at th (more content not included)... Normal [facility] US KIDNEY/BLADDERon 11-08-19 US KIDNEY/BLADDER * * *Final Report* * * DATE OF EXAM: Nov 07 2021 2:52PM [facility] 1055 - US KIDNEY/BLADDER / [...] cysts one of which is mildly complex. Bowl Topper: LIANA Transcribe Date/Time: Nov 07 2021 2:57P Dictated by : NEHEMIAS COLBERT MD This examination was interpreted and the report reviewed and electronically signed by: NEHEMIAS COLBERT MD on Nov 07 2021 3:09PM EST [id number] IACN Normal [facility] Urinalysis complete panel (U )on 11-07-2021 Bilirubin Ql (U) Negative Normal Negative [facility] pital Comment on above: Order Comment: Speci men Type: URINE SPECIMEN Ordering Facility: [facility] Address: [address] [place] [address] Performed By: #### 6 30-4, 29744-7 #### [facility] CLIA [id number] [address] [place] [address] [place] Clarity (Unsp spec) Clear Normal Clear [facility] Comment on above: Order Comment: Speci men Type: URINE SPECIMEN Ordering Facility: [facility] Address: [address] [place] [address] Performed By: #### 6 30-4, 00667-0 #### [facility] CLIA [id number] [address] [place] [address] [place] Color (U) Yellow Normal Yellow [facility] Comment on above: Order Comment: Speci men Type: URINE SPECIMEN Ordering Facility: [facility] Address: [address] [place] [address] Performed By: #### 6 30-4, 20238-6 #### [facility] CLIA [id number] [address] [place] [address] [place] Epithelial cells LM.HPF (Urine sed) [#/Area] Few Normal [facility] Comment on above: Order Comment: Speci men Type: URINE SPECIMEN Ordering Facility: [facility] Address: [address] [place] [address] Performed By: #### 6 30-4, 83273-4 #### [facility] CLIA [id number] [place] Glucose Test strip (U) [Mass/Vol] Negative Normal Negative [facility] Comment on above: Order Comment: Speci men Type: URINE SPECIMEN Ordering Facility: [facility] Address: [address] [place] [address] Performed By: #### 6 30-4, 09700-5 #### [facility] CLIA [id number] [address] [place] [address] [place] Hemoglobin Ql (U) Negative Normal Negative [facility] Comment on above: Order Comment: Speci men Type: URINE SPECIMEN Ordering Facility: [facility] Address: [address] [place] [address] Performed By: #### 6 30-4, 89236-2 #### [facility] CLIA [id number] [address] [place] [address] [place] Hyaline casts (Urine sed) [#/Area] 1-3 /LPF Abnormal 0 /LPF [facility] Comment on above: Order Comment: Speci men Type: URINE SPECIMEN Ordering Facility: [facility] Address: [address] [place] [address] Performed By: #### 6 30-4, 18211-6 #### [facility] CLIA [id number] [address] [place] [address] [place] Ketones Ql (U) Trace Abnormal Negative [facility] Comment on above: Order Comment: Speci men Type: URINE SPECIMEN Ordering Facility: [facility] Address: [address] [place], [place] [id number] Performed By: #### 6 30-4, 41165-9 #### [facility] CLIA [id number] [address] [place] [address] [place] Leukocyte esterase Test strip Ql (U) Negative Normal Negative [facility] Comment on above: Order Comment: Speci men Type: URINE SPECIMEN Ordering Facility: [facility] Address: [address] [place] [address] Performed By: #### 6 30-4, 95328-7 #### [facility] CLIA [id number] [address] [place] [address] [place] Nitrite Ql (U) Negative Normal Negative [facility] Comment on above: Order Comment: Speci men Type: URINE SPECIMEN Ordering Facility: [facility] Address: [address] [place] [address] Performed By: #### 6 30-4, 78244-7 #### [facility] CLIA [id number] [address] [place] [address] [place] pH (U) 5.5 [pH] Normal 5.0-8.0 [facility] Comment on above: Order Comment: Speci men Type: URINE SPECIMEN Ordering Facility: [facility] Address: [address] [place] [address] Performed By: #### 6 30-4, 07825-5 #### [facility] CLIA [id number] [address] [place] [address] [place] Protein (U) [Mass/Vol] Negative Normal Negative [facility] Comment on above: Order Comment: Speci men Type: URINE SPECIMEN Ordering Facility: [facility] Address: [address] [place] [address] Performed By: #### 6 30-4, 53161-7 #### [facility] CLIA [id number] [address] [place] [address] [place] RBC LM.HPF (Urine sed) [#/Area] 0-3 /HPF Normal 0-3 /HPF [facility] Comment on above: Order Comment: Speci men Type: URINE SPECIMEN Ordering Facility: [facility] Address: [address] [place] [address] Performed By: #### 6 30-4, 37329-2 #### [facility] CLIA [id number] [address] [place] [address] [place] Specific gravity (U) [Rel density] 1.024 Normal 1.005-1.030 [facility] Comment on above: Order Comment: Speci men Type: URINE SPECIMEN Ordering Facility: [facility] Address: [address] [place] [address] Performed By: #### 6 30-4, 96555-7 #### [facility] CLIA [id number] [address] [place] [address] [place] Urobilinogen Ql (U) 0.2 EU/dL Normal 0.2-1.0 EU/dL [facility] Comment on above: Order Comment: Speci men Type: URINE SPECIMEN Ordering Facility: [facility] Address: [address] [place] [address] Performed By: #### 6 30-4, 89528-3 #### [facility] CLIA [id number] [address] [place] [address] [place] WBC LM.HPF (Urine sed) [#/Area] 0-5 /HPF Normal 0-5 /HPF [facility] Comment on above: Order Comment: Speci men Type: URINE SPECIMEN Ordering Facility: [facility] Address: [address] [place] [address] Performed By: #### 6 30-4, 74587-1 #### [facility] CLIA [id number] [address] [place] [address] [place] MICROALBUMIN URINEon 022 Albumin, Urine 5.6 ug/mL Normal Not Estab. [facility] Comment on above: Performed By: #### M ALBLC #### [facility] [address] [place] [address] Dr. Juan Pablo Kaminski US CAROTID ART [...] SAMY TORRES Date: 2021-10-23 17:19 Normal [facility] CBC AUTO DIFFon 10-21-2021 BASO # 0.0 103/ul Normal 0.0-0.1 [facility] Comment on above: Performed By: #### A 1C #### [facility] [address] [place] [address] Dr. Juan Pablo Kaminski Basophils/100 WBC (Bld) 0.5 % Normal 0.2-2.0 [facility] Comment on above: Performed By: #### A 1C #### [facility] [address] [place] [address] Dr. Juan Pablo Kmainski EO # 0.3 103/ul Normal 0.0-0.7 [facility] Comment on above: Performed By: #### A 1C #### [facility] [address] [place] [address] Dr. Juan Pablo Kaminski Eosinophils/100 WBC (Bld) 3.6 % Normal 0.9-7.0 [facility] Comment on above: Performed By: #### A 1C #### [facility] [address] [place] [address] Dr. Juan Pablo Kaminski Erythrocyte distribution width (RBC) [Ratio] 11.1 % Normal 11.0-15.0 [facility] Comment on above: Performed By: #### A 1C #### [facility] [address] [place] [address] Dr. Juan Pablo Kaminski Hematocrit (Bld) [Volume fraction] 41.8 % Critically low 42.0-54.0 [facility] Comment on above: Performed By: #### A 1C #### [facility] [address] [place] [address] Dr. Juan Pablo Kaminski Hemoglobin (Bld) [Mass/Vol] 14.1 g/dL Normal 14.0-18.0 [facility] Comment on above: Performed By: #### A 1C #### [facility] [address] [place] [address] Dr. Juan Pablo Kaminski IG # 0.03 10e3/ul Normal 0.00-0.03 [facility] Comment on above: Performed By: #### A 1C #### [facility] [address] [place] [address] Dr. Juan Pablo Kaminski IG % 0.4 % Normal 0.0-0.5 [facility] Comment on above: Performed By: #### A 1C #### [facility] [address] [place] [address] Dr. Juan Pablo Kaminski LYMPH # 2.2 103/ul Normal 1.2-3.8 [facility] Comment on above: Performed By: #### A 1C #### [facility] [address] [place] [address] Dr. Juan Pablo Kaminski Lymphocytes/100 WBC (Bld) 29.4 % Normal 20.5-60.0 [facility] Comment on above: Performed By: #### A 1C #### [facility] [address] [place] [address] Dr. Juan Pablo Kaminski MANUAL DIFF REQ NO Normal [facility] Comment on above: Performed By: #### A 1C #### [facility] [address] [place] [address] Dr. Juan Pablo Kaminski MCH (RBC) [Entitic mass] 31.8 pg Normal 25.9-34.0 [facility] Comment on above: Performed By: #### A 1C #### [facility] [address] [place] [address] Dr. Juan Pablo Kaminski MCHC (RBC) [Mass/Vol] 33.7 g/dL Normal 29.9-35.2 [facility] Comment on above: Performed By: #### A 1C #### [facility] [address] [place] [address] Dr. Juan Pablo Kaminski MCV (RBC) [Entitic vol] 94.1 fL Critically high 80.0-94 .0 [facility] Comment on above: Performed By: #### A 1C #### [facility] [address] [place] [address] Dr. Juan Pablo Kaminski MONO # 0.9 103/ul Critically high 0.3-0.8 [facility] Comment on above: Performed By: #### A 1C #### [facility] [address] [place] [address] Dr. Juan Pablo Kaminski Monocytes/100 WBC (Bld) 11.7 % Normal 1.7-12.0 [facility] Comment on above: Performed By: #### A 1C #### [facility] [address] [place] [address] Dr. Juan Pablo Kaminski NEUT # 4.0 103/ul Normal 1.4-6.5 [facility] Comment on above: Performed By: #### A 1C #### [facility] [address] [place] [address] Dr. Juan Pablo Kaminski Neutrophils/100 WBC (Bld) 54.4 % Normal 43.0-75.0 [facility] Comment on above: Performed By: #### A 1C #### [facility] [address] [place] [address] Dr. Juan Pablo Kaminski Platelet mean volume (Bld) [Entitic vol] 8.6 fL Critically low 9.5-13.5 [facility] Comment on above: Performed By: #### A 1C #### [facility] [address] [place] [address] Dr. Juan Pablo Kaminski PLT 231 103/ul Normal 150-450 [facility] Comment on above: Performed By: #### A 1C #### [facility] [address] [place] [address] Dr. Juan Pablo Kaminski RBC 4.44 106/ul Critically low 4.70-6.10 [facility] Comment on above: Performed By: #### A 1C #### [facility] [address] [address] [address] Juan Pablo Kaminski WBC 7.3 103/ul Normal 4.0-11.0 [facility] Comment on above: Performed By: #### A 1C #### [facility] [address] [address] [address] Juan Pablo Kaminski DIRECT LDLon 10-21-2021 Cholesterol in LDL [Mass/Vol] 106 mg/dL Normal [facility] Comment on above: Performed By: #### A LT, BMP, DLDL #### [facility] [address] [address] [address] Juan Pablo Kaminski DLDL NORMAL SEE BELOW Normal [facility] Comment on above: Result Comment: <100 mg/dl OPTIMAL 100 - 129 mg/dl NEAR OR ABOVE OPTIMAL 130 - 159 mg/dl BORDERLINE HIGH 160 - 189 mg/dl HIGH >190 mg/dl VERY HIGH Performed By: #### A LT, BMP, DLDL #### [facility] [address] [address] [address] Juan Pablo Kaminski GLYCOHEMOGLOBIN A1Con 2021 ADA RECOMMENDATION SEE BELOW Normal [facility] Comment on above: Result Comment: ADA RECOMMENDED LIMIT 4.0 - 6.0 ADA THERAPEUTIC TARGET < 7.0 ACTION SUGGESTED > 7.0 Performed By: #### A 1C #### [facility] [address] [place] [address] Dr. Juan Pablo Kaminski Glucose [Mass/Vol] 120 mg/dL Normal [facility] Comment on above: Performed By: #### A 1C #### [facility] [address] [address] [address] Juan Pablo Kaminski HbA1c (Bld) [Mass fraction] 5.8 % Normal 4.5-6.2 [facility] Comment on above: Performed By: #### A 1C #### [facility] [address] [place] [address] Dr. Juan Pablo Kaminski PROF CHEM 8 (BAS METB)on Anion gap [Moles/Vol] 12.7 mmol/L Normal [facility] Comment on above: Performed By: #### A 1C #### [facility] [address] [place] [address] Dr. Juan Pablo Kaminski Calcium [Mass/Vol] 8.7 mg/dL Normal 8.5-10.1 [facility] Comment on above: Performed By: #### A 1C #### [facility] [address] [place] [address] Dr. Juan Pablo Kaminski Chloride [Moles/Vol] 98 mmol/L Normal 98-107 [facility] Comment on above: Performed By: #### A 1C #### [facility] [address] [place] [address] Dr. Juan Pablo Kaminski CO2 [Moles/Vol] 28.0 mmol/L Normal 21.0-32.0 [facility] Comment on above: Performed By: #### A 1C #### [facility] [address] [place] [address] Dr. Juan Pablo Kaminski Creatinine [Mass/Vol] 1.07 mg/dL Normal 0.70-1.30 [facility] Comment on above: Performed By: #### A 1C #### [facility] [address] [place] [address] Dr. Juan Pablo Kaminski EGFR-AF LATVIAN >60 Normal >=60 [facility] Comment on above: Performed By: #### A 1C #### [facility] [address] [place] [address] Dr. Juan Pablo Kaminski EGFR-NON AF LATVIAN >60 Normal >=60 [facility] Comment on above: Performed By: #### A 1C #### [facility] [address] [place] [address] Dr. Juan Pablo Kaminski Glucose [Mass/Vol] 133 mg/dL Critically high 74-106 [facility] Comment on above: Performed By: #### A 1C #### [facility] [address] [place] [address] Dr. Juan Pablo Kaminski Potassium [Moles/Vol] 4.7 mmol/L Normal 3.5-5.1 [facility] Comment on above: Performed By: #### A 1C #### [facility] [address] [address] [address] Juan Pablo Kaminski Sodium [Moles/Vol] 134 mmol/L Critically low 136-145 [facility] Comment on above: Performed By: #### A 1C #### [facility] [address] [address] [address] Juan Pablo Kaminski Urea nitrogen [Mass/Vol] 17.0 mg/dL Normal 7.0-18.0 [facility] Comment on above: Performed By: #### A 1C #### [facility] [address] [place] [address] Dr. Juan Pablo Kaminski Urea nitrogen/Creatinine [Mass ratio] 15.9 mg/mg Normal [facility] Comment on above: Performed By: #### A 1C #### [facility] [address] [place] [address] Dr. Juan Pablo Kaminski SGPTon 10-21-2021 ALT [Catalytic activity/Vol] 31 U/L Normal 16-63 [facility] Comment on above: Performed By: #### A 1C #### [facility] [address] [place] [address] Dr. Juan Pablo Kaminski GLYCOHEMOGLOBIN A1Con 2021 ADA RECOMMENDATION SEE BELOW Normal [facility] Comment on above: Result Comment: ADA RECOMMENDED LIMIT 4.0 - 6.0 ADA THERAPEUTIC TARGET < 7.0 ACTION SUGGESTED > 7.0 Performed By: #### A 1C #### [facility] [address] [place] [address] Dr. Juan Pablo Kaminski Glucose [Mass/Vol] 131 mg/dL Normal [facility] Comment on above: Performed By: #### A 1C #### [facility] [address] [place] [address] Dr. Juan Pablo Kaminski HbA1c (Bld) [Mass fraction] 6.2 % Normal 4.5-6.2 [facility] Comment on above: Performed By: #### A 1C #### [facility] [address] [place] [address] Dr. Juan Pablo Kaminski Vital Signs Date Time Vital Sign Value Performing Clinician Faci lity 12-28-2023 08:30-0400 Body height 190.5 cm [facility] 12-28-2023 08:30-0400 Body mass index (BMI) [Ratio] 27.8 kg/m2 [facility] 12-28-2023 08:30-0400 Body weight 100.92 kg [facility] 12-28-2023 08:30-0400 Diastolic blood pressure 66 mm[Hg] [facility] 12-28-2023 08:30-0400 Heart rate 71 /min [facility] 12-28-2023 08:30-0400 Respiratory rate 12 /min [facility] 12-28-2023 08:30-0400 Systolic blood pressure 121 mm[Hg] [facility] 09-23-2023 08:35-0400 Body height 190.5 cm DO Campbell Ball Work Phone: [facility] 09-23-2023 08:35-0400 Body mass index (BMI) [Ratio] 27.8 kg/m2 DO Campbell Ball Work Phone: [facility] 09-23-2023 08:35-0400 Body weight 100.86 kg DO Campbell Ball Work Phone: [facility] 09-23-2023 08:35-0400 Diastolic blood pressure 68 mm[Hg] DO Campbell Ball Work Phone: [facility] 09-23-2023 08:35-0400 Heart rate 70 /min DO Campbell Ball Work Phone: [facility] 09-23-2023 08:35-0400 Respiratory rate 12 /min DO Campbell Ball Work Phone: [facility] 09-23-2023 08:35-0400 Systolic blood pressure 141 mm[Hg] DO Campbell Ball Work Phone: [facility] 08-04-2023 08:59-0400 Body mass index (BMI) [Ratio] 27.5 kg/m2 Leticia Milian APRN.MANAGER OF SCHOOL Work Phone: [facility] 08-04-2023 08:59-0400 Body weight 99.79 kg Leticia Rukhsana DIVERSITY INTERN.MANAGER OF [employer]CHO[employer] Work Phone: [facility] 08-04-2023 08:59-0400 Diastolic blood pressure 56 mm[Hg] Leticia Rukhsana DIVERS[employer] INTERN.MANAGER [employer]CHO[employer] Work Phone: [facility] 08-04-2023 08:59-0400 Heart rate 65 /min Leticia Sumner DIVERS[employer] INTERN.MANAGER [employer]CHO[employer] Work Phone: [facility] 08-04-2023 08:59-0400 Systolic blood pressure 130 mm[Hg] Leticia Sumner DIVERSITY INTERN.MANAGER [employer]CHO[employer] Work Phone: [facility] 07-09-2023 13:38-0400 Body height 190.5 cm DO Campbell Ball Work Phone: [facility] 07-09-2023 13:38-0400 Body mass index (BMI) [Ratio] 28 kg/m2 DO Campbell Ball Work Phone: [facility] 07-09-2023 13:38-0400 Body weight 101.6 kg DO Campbell Ball Work Phone: [facility] 07-09-2023 13:38-0400 Diastolic blood pressure 60 mm[Hg] DO Campbell Ball Work Phone: [facility] 07-09-2023 13:38-0400 Heart rate 78 /min DO Campbell Ball Work Phone: [facility] 07-09-2023 13:38-0400 Systolic blood pressure 143 mm[Hg] DO Campbell Ball Work Phone: [facility] 06-23-2023 09:16-0400 Body height 190.5 cm DO Campbell Ball Work Phone: [facility] 06-23-2023 09:16-0400 Body mass index (BMI) [Ratio] 28 kg/m2 DO Campbell Ball Work Phone: [facility] 06-23-2023 09:16-0400 Body weight 101.6 kg DO Campbell Ball Work Phone: [facility] 06-23-2023 09:16-0400 Diastolic blood pressure 64 mm[Hg] DO Campbell Ball Work Phone: [facility] 06-23-2023 09:16-0400 Heart rate 69 /min DO Campbell Ball Work Phone: [facility] 06-23-2023 09:16-0400 Respiratory rate 16 /min DO Campbell Ball Work Phone: [facility] 06-23-2023 09:16-0400 Systolic blood pressure 147 mm[Hg] DO Campbell Ball Work Phone: [facility] 05-21-2023 10:53-0500 Body height 190.5 cm DO Campbell Ball Work Phone: [facility] 05-21-2023 10:53-0500 Body mass index (BMI) [Ratio] 27 kg/m2 DO Campbell Ball Work Phone: [facility] 05-21-2023 10:53-0500 Body weight 98.03 kg DO Campbell Ball Work Phone: [facility] 05-21-2023 10:53-0500 Diastolic blood pressure 77 mm[Hg] DO Campbell Ball Work Phone: [facility] 05-21-2023 10:53-0500 Heart rate 76 /min DO Campbell Ball Work Phone: [facility] 05-21-2023 10:53-0500 Respiratory rate 12 /min DO Campbell Ball Work Phone: [facility] 05-21-2023 10:53-0500 Systolic blood pressure 133 mm[Hg] DO Campbell Ball Work Phone: [facility] 05-15-2023 13:10-0500 Body temperature 98.6 [degF] DO Campbell Ball Work Phone: [facility] 05-15-2023 13:10-0500 Diastolic blood pressure 90 mm[Hg] DO Campbell Ball Work Phone: [facility] 05-15-2023 13:10-0500 Heart rate 90 /min DO Campbell Ball Work Phone: [facility] 05-15-2023 13:10-0500 Respiratory rate 18 /min DO Campbell Ball Work Phone: [facility] 05-15-2023 13:10-0500 SaO2% (BldA) [Mass fraction] 97 % DO Campbell Ball Work Phone: [facility] 05-15-2023 13:10-0500 Systolic blood pressure 181 mm[Hg] DO Campbell Ball Work Phone: [facility] 05-15-2023 10:56-0500 Body height 190.5 cm DO Campbell Ball Work Phone: [facility] 05-15-2023 10:56-0500 Body weight 99.9 kg DO Campbell Ball Work Phone: [facility] 04-21-2023 14:30-0500 Body height 190.5 cm Campbell Ball Other [facility] [employer] Other 04-21-2023 14:30-0500 Body mass index (BMI) [Ratio] 28.07 kg/m2 Campbell Ball Other [facility] [employer] Other 04-21-2023 14:30-0500 Body weight 101.88 kg Campbell Ball Other [employer] Other 04-21-2023 14:30-0500 Diastolic blood pressure 68 mm[Hg] Campbell Ball Other [employer] Other 04-21-2023 14:30-0500 Respiratory rate 12 /min Campbell Ball Other [employer] Other 04-21-2023 14:30-0500 Systolic blood pressure 129 mm[Hg] Campbell Ball Other [employer] Other 03-17-2023 10:30-0500 Body height 190.5 cm Campbell Ball Other [employer] Other 03-17-2023 10:30-0500 Body mass index (BMI) [Ratio] 27.55 kg/m2 Campbell Ball Other [employer] Other 03-17-2023 10:30-0500 Body weight 99.97 kg Campbell Ball Other [employer] Other 03-17-2023 10:30-0500 Diastolic blood pressure 67 mm[Hg] Campbell Ball Other [employer] Other 03-17-2023 10:30-0500 Respiratory rate 12 /min Campbell Ball Other [employer] Other 03-17-2023 10:30-0500 Systolic blood pressure 159 mm[Hg] Campbell Ball Other [employer] Other 02-23-2023 09:30-0500 Body height 190.5 cm Campbell Ball Other [employer] Other 02-23-2023 09:30-0500 Body mass index (BMI) [Ratio] 28.02 kg/m2 Campbell Ball Other [employer] Other 02-23-2023 09:30-0500 Body weight 101.7 kg Campbell Ball Other [employer] Other 02-23-2023 09:30-0500 Diastolic blood pressure 78 mm[Hg] Campbell Ball Other [employer] Other 02-23-2023 09:30-0500 Respiratory rate 12 /min Campbell Ball Other [employer] Other 02-23-2023 09:30-0500 Systolic blood pressure 157 mm[Hg] Campbell Ball Other [employer] Other 02-19-2023 10:45-0500 Body height 190.5 cm Campbell Ball Other [facility] Other 02-19-2023 10:45-0500 Body mass index (BMI) [Ratio] 28 kg/m2 Campbell Ball Other [facility] Other 02-19-2023 10:45-0500 Body weight 101.61 kg Campbell Ball Other [facility] Other 02-19-2023 10:45-0500 Diastolic blood pressure 72 mm[Hg] Campbell Ball Other [facility] Other 02-19-2023 10:45-0500 Respiratory rate 12 /min Campbell Ball Other [facility] Other 02-19-2023 10:45-0500 Systolic blood pressure 144 mm[Hg] Campbell Ball Other [facility] Other 02-02-2023 13:37-0500 Body weight 102.06 kg Leticia Rukhsana [employer] Work Phone: [facility] 02-02-2023 13:37-0500 Diastolic blood pressure 70 mm[Hg] Leticia Rukhsana [employer] Work Phone: [facility] 02-02-2023 13:37-0500 Heart rate 65 /min Leticia Rukhsana [employer] Work Phone: [facility] 02-02-2023 13:37-0500 Systolic blood pressure 146 mm[Hg] Leticia Rukhsana [employer] Work Phone: [facility] 09-22-2022 12:15-0400 Body height 190.5 cm Campbell Ball Other [facility] Other 09-22-2022 12:15-0400 Diastolic blood pressure 82 mm[Hg] Campbell Ball Other [facility] Other 09-22-2022 12:15-0400 Systolic blood pressure 135 mm[Hg] Campbell Ball Other [facility] Other 09-17-2022 09:00-0400 Body height 190.5 cm Campbell Ball Other [facility] Other 09-17-2022 09:00-0400 Body mass index (BMI) [Ratio] 27.57 kg/m2 Campbell Ball Other [facility] Other 09-17-2022 09:00-0400 Body weight 100.06 kg Campbell Ball Other [facility] Other 09-17-2022 09:00-0400 Diastolic blood pressure 62 mm[Hg] Campbell Ball Other [facility] Other 09-17-2022 09:00-0400 Respiratory rate 12 /min Campbell Ball Other [facility] Other 09-17-2022 09:00-0400 Systolic blood pressure 128 mm[Hg] Campbell Ball Other [facility] Other 06-18-2022 10:00-0400 Body height 190.5 cm Campbell Ball Other [facility] Other 06-18-2022 10:00-0400 Body mass index (BMI) [Ratio] 28.02 kg/m2 Campbell Ball Other [facility] Other 06-18-2022 10:00-0400 Body weight 101.7 kg Campbell Ball Other [facility] Other 06-18-2022 10:00-0400 Diastolic blood pressure 62 mm[Hg] Campbell Ball Other [facility] Other 06-18-2022 10:00-0400 Respiratory rate 12 /min Campbell Ball Other [facility] Other 06-18-2022 10:00-0400 Systolic blood pressure 119 mm[Hg] Campbell Ball Other [facility] Other 04-08-2022 12:00-0500 Body height 190.5 cm Campbell Ball Other [facility] Other 04-08-2022 12:00-0500 Body mass index (BMI) [Ratio] 27.82 kg/m2 Campbell Ball Other [facility] Other 04-08-2022 12:00-0500 Body temperature 97.1 [degF] Campbell Ball Other [facility] Other 04-08-2022 12:00-0500 Body weight 100.97 kg Campbell Ball Other [facility] Other 04-08-2022 12:00-0500 Diastolic blood pressure 68 mm[Hg] Campbell Ball Other [facility] Other 04-08-2022 12:00-0500 SaO2% (BldA) [Mass fraction] 97 % Campbell Ball Other [facility] Other 04-08-2022 12:00-0500 Systolic blood pressure 124 mm[Hg] Campbell Ball Other [facility] Other 03-20-2022 10:00-0500 Body height 190.5 cm Campbell Ball Other [facility] Other 03-20-2022 10:00-0500 Body mass index (BMI) [Ratio] 27.95 kg/m2 Campbell Ball Other [facility] Other 03-20-2022 10:00-0500 Body weight 101.42 kg Campbell Ball Other [facility] Other 03-20-2022 10:00-0500 Diastolic blood pressure 60 mm[Hg] Campbell Ball Other [facility] Other 03-20-2022 10:00-0500 Respiratory rate 12 /min Campbell Ball Other [facility] Other 03-20-2022 10:00-0500 Systolic blood pressure 112 mm[Hg] Campbell Ball Other [facility] Other 01-08-2022 08:47-0400 Body weight 97.52 kg Leonard Dugan MD Work Phone: [facility] 01-08-2022 08:47-0400 Diastolic blood pressure 61 mm[Hg] Leonard Dugan MD Work Phone: [facility] 01-08-2022 08:47-0400 Heart rate 72 /min Leonard Dugan MD Work Phone: [facility] 01-08-2022 08:47-0400 Systolic blood pressure 139 mm[Hg] Leonard Dugan MD Work Phone: [facility] 12-26-2021 08:32-0400 Body temperature 98 [degF] DO Campbell Ball Work Phone: [facility] 12-26-2021 08:32-0400 Diastolic blood pressure 62 mm[Hg] DO Campbell Ball Work Phone: [facility] 12-26-2021 08:32-0400 Heart rate 75 /min DO Campbell Ball Work Phone: [facility] 12-26-2021 08:32-0400 Respiratory rate 18 /min DO Campbell Ball Work Phone: [facility] 12-26-2021 08:32-0400 SaO2% (BldA) [Mass fraction] 98 % DO Campbell Ball Work Phone: [facility] 12-26-2021 08:32-0400 Systolic blood pressure 146 mm[Hg] DO Campbell Ball Work Phone: [facility] 12-17-2021 16:22-0400 Body height 190.5 cm DO Campbell Ball Work Phone: [facility] 12-17-2021 16:22-0400 Body weight 97.52 kg DO Campbell Ball Work Phone: [facility] 12-17-2021 16:19-0400 Body temperature 98.4 [degF] DO Campbell Ball Work Phone: [facility] 12-17-2021 16:19-0400 Diastolic blood pressure 63 mm[Hg] DO Campbell Ball Work Phone: [facility] 12-17-2021 16:19-0400 Heart rate 66 /min DO Campbell Ball Work Phone: [facility] 12-17-2021 16:19-0400 Respiratory rate 16 /min DO Campbell Ball Work Phone: [facility] 12-17-2021 16:19-0400 SaO2% (BldA) [Mass fraction] 96 % DO Campbell Ball Work Phone: [facility] 12-17-2021 16:19-0400 Systolic blood pressure 135 mm[Hg] DO Campbell Ball Work Phone: [facility] 12-16-2021 14:41-0400 Diastolic blood pressure 62 mm[Hg] Leonard Kailee MD Work Phone: [facility] 12-16-2021 14:41-0400 Heart rate 69 /min Leonard Dugan MD Work Phone: [facility] 12-16-2021 14:41-0400 Respiratory rate 16 /min Leonard Dugan MD Work Phone: [facility] 12-16-2021 14:41-0400 Systolic blood pressure 141 mm[Hg] Leonard Dugan MD Work Phone: [facility] 12-11-2021 18:25-0400 Body temperature 97.5 [degF] DO Campbell Ball Work Phone: [facility] 12-11-2021 18:25-0400 Diastolic blood pressure 88 mm[Hg] DO Campbell Ball Work Phone: [facility] 12-11-2021 18:25-0400 Heart rate 67 /min DO Campbell Ball Work Phone: [facility] 12-11-2021 18:25-0400 Respiratory rate 20 /min DO Campbell Ball Work Phone: [facility] 12-11-2021 18:25-0400 SaO2% (BldA) [Mass fraction] 99 % DO Campbell Ball Work Phone: [facility] 12-11-2021 18:25-0400 Systolic blood pressure 175 mm[Hg] DO Campbell Ball Work Phone: [facility] 12-11-2021 16:57-0400 Body height 190.5 cm DO Campbell Ball Work Phone: [facility] 12-11-2021 16:57-0400 Body weight 98.5 kg DO Campbell Ball Work Phone: [facility] 12-10-2021 10:50-0400 Body weight 95.25 kg Nurse Emelia Work Phone: [facility] 12-10-2021 10:50-0400 Diastolic blood pressure 80 mm[Hg] Nurse Emelia Work Phone: [facility] 12-10-2021 10:50-0400 Heart rate 59 /min Nurse Emelia Work Phone: [facility] 12-10-2021 10:50-0400 Systolic blood pressure 152 mm[Hg] Nurse Emelia Work Phone: [facility] 12-09-2021 14:27-0400 Body weight 95.25 kg [facility] Work Phone: [facility] 12-09-2021 14:27-0400 Diastolic blood pressure 68 mm[Hg] [facility] Work Phone: [facility] 12-09-2021 14:27-0400 Heart rate 70 /min [facility] Work Phone: [facility] 12-09-2021 14:27-0400 Systolic blood pressure 164 mm[Hg] [facility] Work Phone: [facility] 11-12-2021 11:23-0400 Body weight 96.16 kg Leonard Dugan MD Work Phone: [facility] 11-12-2021 11:23-0400 Diastolic blood pressure 73 mm[Hg] Leonard Dugan MD Work Phone: [facility] 11-12-2021 11:23-0400 Heart rate 56 /min Leonard Dugan MD Work Phone: [facility] 11-12-2021 11:23-0400 Systolic blood pressure 162 mm[Hg] Leonard Dugan MD Work Phone: [facility] Encounters Encounter Date Encounter Type Care Provider Facility Start: 12-28-2023 End: 12-28-[address] [facility] Work Phone: Start: 12-28-2023 End: 12-28-2023 Patient encounter procedure [facility] Work Phone: Start: 12-25-2023 Patient encounter procedure [facility] Start: 12-17-2023 End: 12-17-2023 Bamboo flowsheet Sterling Zamudio DO Work Phone: [facility] Start: 12-17-2023 End: 12-17-2023 Bamboo flowsheet Sterling Zamudio DO Work Phone: [facility] Start: 12-17-2023 End: 12-17-2023 Clinisync Result Encounter Sterling Sanderson hCarlottebrandon DO Work Phone: [facility] External Department Unsolicited Start: 12-17-2023 End: 12-17-2023 ambulatory Sterling Zamudio Facility:[facility] Start: 12-17-2023 End: 12-17-2023 Patient encounter procedure Sterling Zamudio [facility] Start: 12-17-2023 End: 12-17-2023 ambulatory STERLING Kin ZAMUDIO Not Available Start: 12-15-2023 End: 12-15-[address] [facility] Work Phone: Start: 12-15-2023 End: 12-15-2023 Patient encounter procedure [facility] Work Phone: Start: 09-23-2023 End: 09-23-2023 ambulatory DO Campbell Naranjo Work Phone: [facility] Work Phone: Start: 09-23-2023 End: 09-23-2023 Patient encounter procedure DO Campbell Ball Work Phone: [facility] Work Phone: Start: 08-04-2023 End: 08-04-2023 ambulatory LETICIA MILIAN Facility:[facility] Start: 08-04-2023 Non-patient / Non-visit DO Lenin frank Quentin Work Phone: [facility] Work Phone: Start: 08-04-2023 End: 08-04-2023 Patient encounter procedure Leticia Milian APRN.[employer]NAGER [employer] Work Phone: Urology Comment on above: Benign prostatic hyp erplasia, unspecified whether lower urinary tract symptoms present (Primary Dx); Recurrent UTI; Nocturia Start: 07-26-2023 End: 07-26-2023 ambulatory CAMPBELL Dakota BALL Facility:[facility] Start: 07-26-2023 Non-patient / Non-visit DO Lenin frank Ball Work Phone: [facility] Physician [facility] Work Phone: Start: 07-22-2023 End: 07-22-2023 ambulatory Jhon Sanderson [facility] Facility:[facility] Start: 07-22-2023 End: 07-22-2023 ambulatory DO Campbell Ball Work Phone: [facility] Work Phone: Start: 07-22-2023 End: 07-22-2023 Departed Referred DO Campbell Ball Work Phone: [facility] Start: 07-22-2023 Non-patient / Non-visit DO Lenin Naranjo Work Phone: [facility] Work Phone: Start: 07-12-2023 End: 07-12-2023 ambulatory Jhon Sanderson [facility] Facility:[facility] Start: 07-12-2023 End: 07-12-2023 ambulatory DO Campbell Ball Work Phone: [facility] Work Phone: Start: 07-12-2023 End: 07-12-2023 Departed Referred DO Campbell Ball Work Phone: [facility] Start: 07-09-2023 End: 07-09-2023 ambulatory DO Campbell Ball Work Phone: [facility] Work Phone: Start: 07-09-2023 End: 07-09-2023 Patient encounter procedure DO Campbell Ball Work Phone: [facility] Work Phone: Start: 07-06-2023 Non-patient / Non-visit DO Lenin monika Ball Work Phone: [facility] Work Phone: Start: 06-23-2023 End: 06-23-2023 ambulatory DO Campbell Ball Work Phone: [facility] Work Phone: Start: 06-23-2023 End: 06-23-2023 Patient encounter procedure DO Campbell Ball Work Phone: [facility] Work Phone: Start: 05-31-2023 Non-patient / Non-visit DO Lenin frank Ball Work Phone: [facility] Work Phone: Start: 05-21-2023 End: 05-21-2023 Patient encounter procedure DO Campbell Ball Work Phone: [facility] Work Phone: Start: 05-15-2023 End: 05-15-2023 Emergency department patient visit Low Kaylin Carter Facility:[facility] Start: 05-15-2023 End: 05-15-2023 Emergency department patient visit DO Campbell Ball Work Phone: [facility] Work Phone: Start: 05-03-2023 Non-patient / Non-visit DO Lenin haleyin Ball Work Phone: [facility]ician [facility] Work Phone: Start: 04-30-2023 Non-patient / Non-visit DO Lenin monika Ball Work Phone: [facility] Work Phone: Start: 04-21-2023 End: 04-21-2023 ambulatory Campbell Ball Other [facility] Other Start: 04-21-2023 Transitional care manage srvc 14 day discharge Campbell Naranjo [facility] Start: 04-19-2023 End: 04-19-2023 ambulatory Campbell Naranjo Other [facility] Other Start: 04-19-2023 Telephone encounter Campbell SINGH [facility] Start: 04-15-2023 End: 04-15-2023 ambulatory Campbell Naranjo Other [facility] Other Start: 04-15-2023 Telephone encounter Campbell SINGH [facility] Start: 03-17-2023 End: 03-17-2023 ambulatory Campbell Naranjo Other [facility] Other Start: 03-17-2023 Transitional care manage srvc 14 day discharge Campbell Naranjo [facility] Start: 03-04-2023 End: 03-04-2023 ambulatory Campbell Naranjo Other [facility] Other Start: 03-04-2023 Telephone encounter Campbell SINGH G [facility] Start: 02-23-2023 End: 02-23-2023 ambulatory Campbell Naranjo Other [facility] Other Start: 02-23-2023 Office outpatient vi sit 15 minutes Campbell Naranjo [facility] Start: 02-23-2023 Telephone encounter Campbell SINGH [facility] Start: 02-19-2023 End: 02-19-2023 ambulatory Campbell Naranjo Other [facility] Other Start: 02-19-2023 Office outpatient vi sit 15 minutes Campbell Naranjo [facility] Start: 02-02-2023 End: 02-02-2023 ambulatory CAMPBELL NARANJO Facility:[facility] Start: 02-02-2023 End: 02-02-2023 Patient encounter procedure Leticia Milian APRN.[facility] Work Phone: Urology Comment on above: BPH with obstruction /lower urinary tract symptoms (Primary Dx); Recurrent UTI; Weak urinary stream Start: 01-19-2023 End: 01-19-2023 ambulatory CAMPBELL NARANJO Facility:[facility] Start: 01-13-2023 End: 01-13-2023 Emergency department patient visit Low Carter Facility:[facility] Start: 01-13-2023 End: 01-13-2023 Emergency department patient visit DO Campbell Naranjo Work Phone: [facility] Work Phone: Start: 12-21-2022 End: 12-21-2022 ambulatory Campbell Naranjo Other [facility] Other Start: 12-21-2022 Telephone encounter Campbell SINGH [facility] Start: 09-22-2022 End: 09-22-2022 ambulatory Campbell Naranjo Other [facility] Other Start: 09-22-2022 Office outpatient vi sit 15 minutes Campbell Naranjo [facility] Start: 09-20-2022 End: 09-20-2022 ambulatory Cornell Baptiste Other [facility] Other Start: 09-20-2022 Encounter by [facility] raissa Baptiste [facility] Start: 09-17-2022 End: 09-17-2022 ambulatory Campbell Naranjo Other [facility] Other Start: 09-17-2022 Office outpatient vi sit 25 minutes Campbell Naranjo [facility] Start: 09-15-2022 End: 09-15-2022 ambulatory Cornell Baptiste Other [facility] Other Start: 09-15-2022 Encounter by [facility] raissa Baptiste [facility] Start: 06-25-2022 End: 06-26-[address] CAMPBELL NARANJO Facility: Start: 06-18-2022 End: 06-18-2022 ambulatory Campbell Naranjo Other [facility] Other Start: 06-18-2022 Office outpatient vi sit 25 minutes Campbell Naranjo [facility] Start: 06-02-2022 End: 06-03-[address] CAMPBELL NARANJO Facility:[facility] Start: 04-08-2022 End: 04-08-2022 ambulatory Campbell Naranjo Other [facility] Other Start: 04-08-2022 Office outpatient vi sit 15 minutes Campbell Naranjo [facility] Start: 03-24-2022 End: 03-24-2022 ambulatory Campbell Naranjo Other [facility] Other Start: 03-24-2022 Telephone encounter Campbell Naranjo [facility] Start: 03-20-2022 Office outpatient vi sit 25 minutes Campbell Quentin [facility] Start: 03-20-2022 End: 03-21-[address] CAMPBELL NARANJO [facility] Other Start: 01-08-2022 End: 01-08-2022 Patient encounter procedure Leonard Dugan MD Work Phone: Urology Comment on above: Chronic epididymitis (Primary Dx); Left hydrocele; Weak urinary stream; BPH without obstruction/lower urinary tract symptoms; Epididymitis Start: 01-07-2022 Refill Leonard Dugan MD Work Phone: Urology Comment on above: Refill Request Start: 12-26-2021 End: 12-26-2021 ambulatory DO Campbell Naranjo Work Phone: [facility] Work Phone: Start: 12-26-2021 End: 12-26-2021 Discharged Recurring DO Campbell Naranjo Work Phone: [facility] Start: 12-25-2021 End: 12-26-[address] CAMPBELL NARANJO Facility:[facility] Start: 12-17-2021 End: 12-17-2021 Emergency department patient visit DO Campbell Naranjo Work Phone: [facility] Start: 12-16-2021 End: 12-16-2021 Patient encounter procedure Leonard Dugan MD Work Phone: Urology Comment on above: Retention of urine ( Primary Dx); Flaccid bladder Start: 12-15-2021 Telephone encounter Leticia trentnanci [employer] Work Phone: Urology Comment on above: Patient Update Start: 12-11-2021 End: 12-11-2021 Emergency department patient visit DO Campbell Naranjo Work Phone: [facility] Start: 12-11-2021 Telephone encounter Leonard Dugan MD Work Phone: Urology Comment on above: Patient Update Start: 12-10-2021 End: 12-10-2021 Nursing evaluation of patient and report Nurse [facility]rol [facility] Work Phone: Urology Comment on above: Urinary tract infect ion without hematuria, site unspecified (Primary Dx); Feeling of incomplete bladder emptying; Benign prostatic hyperplasia with urinary retention Start: 12-09-2021 End: 12-09-2021 Nursing evaluation of patient and report [facility] Work Phone: Urology Comment on above: Urinary frequency (P rimary Dx); Urinary urgency; Urinary straining; Feeling of incomplete bladder emptying Start: 12-08-2021 Telephone encounter Leonard Dugan MD Work Phone: Urology Comment on above: Appointment (Resched ule catheter change) Start: 11-26-2021 End: 11-27-2021 Emergency department patient visit CAMPBELL NARANJO Facility:[facility] Start: 11-21-2021 Telephone encounter Leonard Dugan MD [...] department patient visit RAN Yeison NABEEL LEACH Facility:[facility] Start: 10-23-2021 End: 10-24-[address] CAMPBELL NARANJO Facility:[facility] Start: 10-21-2021 End: 10-22-[address] CAMPBELL NARANJO Facility:[facility] Start: 10-20-2021 Adult health examination Campbell Naranjo Other [facility] Other Start: 07-17-2021 End: 07-18-[address] CAMPBELL NARANJO Facility:[facility] Start: 01-09-2020 End: 01-09-2020 Pre-procedure evaluation check Campbell Naranjo Other [facility] Other Procedures Date Procedure Procedure Detail Performing Clinician Start: 12-17-2023 End: 12-17-2023 Computerized ophthalmic imaging optic nerve Sterling Zamudio DO Work Phone: Start: 12-17-2023 [facility] PLATELET COUNT Sterling Zamudio DO Work Phone: [...] Author Start: 07-25-2026 Diabetes Screening Diabetes Screenin [facility] Start: 03-22-2024 End: 03-22-2024 Patient encounter procedure 03/22/2024 11:15 AM EST Office Visit [facility] [address] [place] [address] Sterling Zamudio DO [address] [place] [address] [facility] Start: 02-08-2024 End: 02-08-2024 Patient encounter procedure 02/08/2024 8:30 AM EST Office Visit Urology [address] [place], [place] [id number] Leticia Milian, [employer] INTERN.[employer] [address] [place] [address] Return in about 6 months [...] [facility] [address] [place] [id number] Sterling Zamudio, [address] [place] [address] Arrived [facility] Comment on above: Arrived Start: 11-14-2023 Influenza vaccination Influenza Vacc ine (#1) [facility] Start: 03-15-2023 Advance Directive Discussion Advance Directive Discussion [facility] Start: 03-15-2023 Behavioral Health Screening Behavioral Health Screening [facility] Start: 12-28-2022 Urine microalbumin profile DTaP,Tdap,Td Vaccine (3 - Tdap) [facility] Start: 11-13-2022 Covid-19 Vaccine ( season) Covid-19 Vaccine ( season) [facility] Start: 03-15-2022 Advance Directive Discussion Advance Directive Discussion [facility] Start: 03-15-2022 Depression Assessment Depression Ass essment [facility] Start: 01-08-2022 End: 03-10-2022 Bacteria identified in Urine by Culture URINE CULTURE Microbiology Routine Left hydrocele Chronic epididymitis Weak urinary stream BPH without obstruction/lower urinary tract symptoms Epididymitis Expected: 01/08/2022 (Approximate), Expires: 03/10/2022 [facility] Work Phone: Comment on above: Expected: 01/08/2022 (Approximate), Expires: 03/10/2022 Start: 01-08-2022 End: 03-10-2022 URINALYSIS, REFLEX MICROSCOPIC URINALYSIS, REFLEX MICROSCOPIC Lab Routine Left hydrocele Chronic epididymitis Weak urinary stream BPH without obstruction/lower urinary tract symptoms Epididymitis Expected: 01/08/2022 (Approximate), Expires: 03/10/2022 [facility] Work Phone: Comment on above: Expected: 01/08/2022 (Approximate), Expires: 03/10/2022 Start: 12-10-2021 End: 02-09-2022 Bacteria identified in Urine by Culture URINE CULTURE Microbiology Routine Urinary tract infection without hematuria, site unspecified Expected: 12/10/2021, Expires: 02/09/2022 [facility] Work Phone: Comment on above: Expected: 12/10/2021 , Expires: 02/09/2022 Start: 11-13-2021 Influenza vaccination INFLUENZA (#1) [facility] Start: 11-12-2021 URODYNAMICS URODYNAMICS Pr ocedures Routine 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 Expected: 11/12/2021 (Approximate) [facility] Work Phone: Comment on above: Expected: 11/12/2021 (Approximate) Start: 08-11-2021 COVID-19 VACCINE (5 - Booster for Pfizer series) COVID-19 VACCINE (5 - Booster for Pfizer series) [facility] Start: 03-15-2021 ADVANCE DIRECTIVE DISCUSSION ADVANCE DIRECTIVE DISCUSSION [facility] Start: 03-15-2021 DEPRESSION ASSESSMENT DEPRESSION ASS ESSMENT [facility] Start: 05-26-2012 3 comp foot exam completed DIABETIC FOOT EXAM [facility] Start: 05-17-2012 Pneumococcal Vaccine : 65+ Years (2 of 2 - PCV) Pneumococcal Vaccine: 65+ Years (2 of 2 - PCV) [facility] Start: 1998 Hepatitis B Vaccine (1 of 3 - Risk 3-dose series) Hepatitis B Vaccine (1 of 3 - Risk 3-dose series) [facility] Start: 1998 RSV Vaccine (1 - 1-d ose 60+ series) RSV Vaccine (1 - 1-dose 60+ series) [facility] Start: 1988 SHINGRIX VACCINE (1 of 2) SHINGRIX VACCINE (1 of 2) [facility] Start: 1957 Urine microalbumin profile DTAP,TDAP,TD (1 - Tdap) [facility] Start: 1956 Hepatitis B surface antibody level LDL CHOLESTEROL [facility] Start: 1948 Hepatitis B screening URINE ALBUMIN:CREATININE RATIO [facility] Start: 1948 Hepatitis C antibody , confirmatory test DILATED RETINAL EXAM [facility] Start: 1944 PNEUMOCOCCAL: 65+ (1 - PCV) PNEUMOCOCCAL: 65+ (1 - PCV) [facility] Start: 1943 Hemoglobin A1c/Hemoglobin.total in Blood HBA1C [facility] Bacteria identified in Urine by Culture [facility] End: 02-02-2024 Bacteria identified in Urine by Culture URINE CULTURE Microbiology Routine Recurrent UTI 5 Occurrences starting 02/02/2023 until 02/02/2024 [facility] Work Phone: Comment on above: 5 Occurrences starti ng 02/02/2023 until 02/02/2024 Comprehensive metabo lic 2000 panel - Serum or Plasma [facility] Patient Education [facility] Ctr Work Phone: Patient referral [facility] Work Phone: End: 01-14-2024 Urinalysis complete panel - Urine URINALYSIS, WITH MICROSCOPIC Lab Routine Recurrent UTI 5 Occurrences starting 02/02/2023 until 01/14/2024 [facility] Work Phone: Comment on above: 5 Occurrences starti ng 02/02/2023 until 01/14/2024 US Heart Transthoracic [facility] Immunizations Immunization Date Immunization Notes Care Provider Jens eid 12-15-2023 influenza, high dose seasonal, preservative-free [facility] 12-01-2022 influenza virus vaccine, unspecified formulation DO Campbell Naranjo Work Phone: [facility] 12-01-2022 influenza, high dose seasonal, preservative-free Campbell Naranjo Other [facility] Other 12-19-2021 influenza virus vaccine, split virus (incl. purified surface antigen) Campbell Naarnjo Other [facility] [employer] Other 12-19-2021 influenza virus vaccine, unspecified formulation DO Campbell Naranjo Work Phone: [facility] 12-10-2020 influenza virus vaccine, split virus (incl. purified surface antigen) Campbell Naranjo Other [facility] [employer] Other 12-10-2020 influenza virus vaccine, unspecified formulation DO Campbell Naranjo Work Phone: [facility] 01-09-2020 influenza virus vaccine, split virus (incl. purified surface antigen) Campbell Naranjo Other [facility] [employer] Other 01-09-2020 influenza virus vaccine, unspecified formulation DO Campbell Naranjo Work Phone: [facility] 01-23-2019 influenza virus vaccine, live, attenuated, for intranasal use Sterling Zamudio [facility] 01-14-2018 influenza virus vaccine, split virus (incl. purified surface antigen) Campbell Naranjo Other [facility] [employer] Other 01-14-2018 influenza virus vaccine, unspecified formulation DO Campbell Naranjo Work Phone: [facility] 12-30-2016 influenza virus vaccine, split virus (incl. purified surface antigen) Campbell Naranjo Other [facility] [employer] Other 12-30-2016 influenza virus vaccine, unspecified formulation DO Campbell Naranjo Work Phone: [facility] 03-16-2016 influenza virus vaccine, split virus (incl. purified surface antigen) Campbell Naranjo Other [facility] [employer] Other 03-16-2016 influenza virus vaccine, unspecified formulation DO Campbell Naranjo Work Phone: [facility] 05-01-2015 pneumococcal conjuga te vaccine, 13 valent Campbell Naranjo Other [facility] 05-01-2015 pneumococcal Conjuga te, unspecified formulation; Translations: [Need for prophylactic vaccination against Streptococcus pneumoniae (pneumococcus)] Campbell Naranjo Other [facility] [employer] Other 12-28-2012 tetanus and diphther ia toxoids, adsorbed, preservative free, for adult use (5 Lf of tetanus toxoid and 2 Lf of diphtheria toxoid) Campbell Naranjo Other [facility] 01-28-2012 diphtheria, tetanus toxoids and acellular pertussis vaccine, unspecified formulation Campbell Naranjo Other [facility] 01-20-2012 pneumococcal polysaccharide vaccine, 23 valent Campbell Naranjo Other [facility] 05-18-2011 pneumococcal polysaccharide vaccine, 23 valent Campbell Naranjo Other [facility] Payers Date Payer Category Payer Self-pay 2016 Unknown [place] D[place] SUPPLE[place] [id number] 2016-Present [phone] [address] [place] [address] Indemnity [id number] 2003 Medicare [id number] 1959 Medicare [id number] 1959 Medicare [id number] 1938 Unknown [id number] 3 1938 Unknown [id number] [id number] 3 1938 Unknown [id number] [id number] 3 1938 Unknown [id number] [id number] 3 1938 Unknown [id number] 2.16.840.1.296929.3.579.2.59 3 1938 Unknown [id number] 2.16.840.1.009098.3.579.2.59 3 1938 Unknown [id number] [id number] 3 1938 Unknown [id number] 2.16.840.1.620567.3.579.2.59 3 1938 Unknown [id number] 2.16.840.1.166972.3.579.2.12 59 1938 Unknown [id number] [id number] 7 Medicare Medicare Outpatient [id number] Unknown [facility] [id number] Unknown [id number] [id number] 1 Unknown [id number] [id number] 1 Unknown [id number] [id number] 1 Unknown [id number] 1 Social History Date Type Detail Facility Start: 10-24-2009 End: 12-16-2021 Tobacco smoking status NHIS Ex-smoker [facility] End: 03-15-1971 History of tobacco use Current smoker [facility] End: 03-15-1971 History of tobacco use Cigarette Smoker [facility] Start: 10-24-2009 End: 07-28-2022 Cigarettes smoked current (pack per day) - Reported 1.5 [facility] Start: 11-07-2021 End: 12-17-2023 Alcohol intake Current drinker of alcohol (finding) [facility] Start: 1940 Sex Assigned At Not on file [facility] Start: 10-28-2021 End: 01-08-2022 Exposure to SARS-CoV-2 (event) Not sure [facility] Start: 12-11-2021 End: 05-15-2023 Tobacco smoking status NHIS Never smoked tobacco (finding) [facility] Start: 1940 Sex Assigned At Male [facility] Start: 12-16-2021 End: 03-29-2023 Tobacco use and exposure Smokeless tobacco non-user [facility] Start: 12-16-2021 End: 07-28-2022 Sex Assigned At [facility] National Score (1-10 0), lower number is lower risk 61 [facility] Start: 03-29-2023 Alcohol Comment 2-3 times a week. [facility] Start: 12-16-2023 Sexual orientation Heterosexual (finding) [facility] Medical Equipment Procedure Code Equipment Code Equipment Origin al Text Equipment Identifier Dates [id number], [id number] Start: 10-23-2021 End: 08-04-2023 Comment on above: TEST HOME BLOOD SUGA R ONCE A DAY USE TO TEST HOME BLO OD SUGAR ONCE A DAY Clinical Notes 11-10-2021 to 12-17-2023 Sterling Zamudio, - 12/17/2023 9:30 AM EDLeticia Blackwell, JOAQUIN.MANAGER OF SCHOOL - 08/04/2023 8:58 AM EDT Note Date & Type Note Facility 12-17-2023 Note Right Eye Quality was good. Scan locations included subfoveal. Progression has been stable. Findings include normal observations. Left Eye Quality was good. Scan locations included subfoveal. Progression has been stable. Findings include normal observations. Notes Good scan with normal appearance [facility] 12-17-2023 History of Present illness Narrative Images [...] scrubs were recommended. documented in this encounter [facility] 08-04-2023 Note HNO ID: [id number] Author: LETICIA MILIAN APRN.MANAGER OF SCHOOL Service: ? Author Type: Nurse Practitioner Type: Progress Notes Filed: 08/04/2023 09:23 Note Text: Norberto Washington [address] [place] [address] HISTORY OF PRESENT ILLNESS: Seen 02/02/23 for [...] finding today 08/04/23) Pt is presently on snf antibiotic due to infection in toes that went to bone Stated that urinary symptoms have resolved with treatment. PVR=36 ML UA 07/26/23=trace leuk esterase Culture 07/26/23=<10,000 CFU/ml Lactose positive gram negative bacilli Abnormal A1C 07/26/23=6.4 Location: BPH w obs/luts, UTI Pain Character: none Severity Scale: see AUA score, see lab Duration: BPH w obs/luts, UTI [facility] SYMPTOMS SCORE. 1. INCOMPLETE EMPTYING [...] order for urin (more content not included)... [facility] 08-04-2023 History of Present illness Narrative Norberto Washington [address] [facility] [address] HISTORY OF PRESENT ILLNESS: Seen 02/02/23 for [...] finding today 08/04/23) Pt is presently on snf antibiotic due to infection in toes that went to bone Stated that urinary symptoms have resolved with treatment. PVR=36 ML UA 07/26/23=trace leuk esterase Culture 07/26/23=<10,000 CFU/ml Lactose positive gram negative bacilli Abnormal A1C 07/26/23=6.4 Location: BPH w obs/luts, UTI Pain Character: none Severity Scale: see AUA score, see lab Duration: BPH w obs/luts, UTI [facility] SYMPTOMS SCORE. 1. INCOMPLETE EMPTYING [...] Making Level: 4 - Moderate Leticia Milian APRN.MANAGER OF SCHOOL documented in this encounter [facility] 04-21-2023 Evaluation note Encounter Date Diagnosis [...] - recommend Picc line and IV antibiotics [facility] Other 01-03-2024 Evaluation note* Encounter Date Diagnosis [...] to restart Amlodipine. Continue PAUL for now. [facility] Other 12-12-2023 Evaluation note* Encounter Date Diagnosis [...] and inserts to prevent callus formation.Fall precautions. [facility] Other 12-08-2023 Evaluation note* Encounter Date Diagnosis [...] ulcers. Recommend routine foot care w/ Podiatry [facility] Other 11-21-2023 NoteHNO ID: [id number] Author: Leticia Milian APRN.MANAGER OF SCHOOL Service: ? Author Type: Nurse Practitioner Type: Progress Notes Filed: 02/02/2023 2:13 PM Note Text: Norberto Mccoy Sin [address] [facility] [address] HISTORY OF PRESENT ILLNESS: Seen 07/28/22 for [...] see lab Duration: BPH w obs/luts, UTI [facility] SYMPTOMS SCORE. 1. INCOMPLETE EMPTYING [...] only if s (more content not included)... [facility]11-21-2023 Miscellaneous Notes* Addendum Note - Leticia Milian APRN.CNP - 02/02/2023 2:16 PM ESTAddended by: LETICIA MILIAN on: 02/02/2023 02:16 PM Modules accepted: Orders [facility] History of Present illness Narrative* Leticia Milian APRN.ENIO - 02/02/2023 1:40 PM EST Norberto Washington [address] [facility] [address] HISTORY OF PRESENT ILLNESS: Seen 07/28/22 for [...] see lab Duration: BPH w obs/luts, UTI [facility] SYMPTOMS SCORE. 1. INCOMPLETE EMPTYING [...] Making Level: 4 - Moderate Leticia Milian APRN.MANAGER OF SCHOOL [facility] note* Encounter Date Diagnosis [...] w/ acute infection Requires no additional treatment [facility] Other 07-06-2023 Evaluation note* Encounter Date Diagnosis [...] exercise for 30 minutes, 3-5 times weekly. [facility] Other 04-06-2023 Evaluation note* Encounter Date Diagnosis [...] w/ antibiotics and treatment of urinary retention [facility] Other 03-21-2023 NotePROCEDURE: XR FOOT LT MIN [...] Electronically authenticated by: SAMY TORRES Date: 2022-06-02 15:48[facility]03-21-2023 NotePROCEDURE: XR FOOT LT [...] Electronically authenticated by: SAMY TORRES Date: 2022-06-02 15:48[facility]01-25-2023 Evaluation note* Encounter Date [...] lesion was treated w/ cryotherapy w/o complications [facility] Other 01-06-2023 Evaluation note* Encounter Date Diagnosis [...] Mar, Hesitancy of micturition (ICD-10 - R39.11) [facility] Other 10-27-2022 History of Present illness Narrative* Zuleika Hackett - 01/08/2022 8:20 AM EDT Norberto Washington [address] [address] Mr. Washington presents with chief complaints of: Enlarged L testicle. ED 11/07/21: PVR 179 cc, refused a catheter, scheduled to undergo a cystoscopy in [place] but was cancelled due to his urologist [...] epididymitis Hydroceles: None Spermatoceles: None Varicoceles: None [facility] SYMPTOMS SCORE. Date 01/08/2022 1. [...] scheduled -UA and culture prior OV with LEVEL [employer] VIAL FILLER Leticia By signing my name below, I, [...] complete. Leonard Dugan M.D. [facility] Hospital Discharge instructions Additional Instructions Continue taking Flomax as prescribed Avoid drinking any fluids several hours before bed Call your urologist tomorrow for a follow-up appointment Return if you are unable to urinate, develop blood in your urine, abdominal pain, [facility] Work Phone: [phone] History of Present illness Narrative* Leonard Dugan MD - 12/16/2021 2:51 PM EDT Norberto Washington [address] [place] [address] HISTORY OF PRESENT ILLNESS: ED 11/07/21: PVR 179 cc, refused a catheter, scheduled to undergo a cystoscopy in [place] but was cancelled due to his urologist [...] Otherwise, intermittent catheterization. Agreed indwelling catheter 18 qatari. Flomax will not work, no prostate tissue [...] Moderate Leonard Dugan MD documented in [facility] encounterCl[facility]10-[facility]-2022 Miscellaneous Notes* Telephone Encounter - Valente Bell LPN - 12/15/2021 3:58 PM EDT Called and spoke to patient regarding message below. Patient states understanding to information provided. No further action required at this time. * Telephone Encounter - Leticia Milian APRN.CNP - 12/15/2021 10:13 AM EDT Please call and confirm that pt received Flomiot message to start new script sent for antibiotic. Thanks Leticia MONDRAGON documented in this encounterCl[facility]09-29-2022 Miscellaneous Notes* Telephone Encounter - Vaelnte Bell LPN - 12/11/2021 4:09 PM EDT [...] be draining normally now. documented in [facility] encounterCl[facility]09-28-[facility] Nurse Note* Stephanie Kaur RN [...] hyperplasia with urinary retention documented in this encounterCl[facility]09-27-[facility] History of Present illness Narrative* Leonard Dugan MD - 12/09/2021 5:05 PM EDT [facility] [...] contractility Leonard Dugan MD documented in this encounterClerm[facility]09-27-2022 Nurse Note* Stephanie Kaur RN - 12/09/2021 3:57 PM EDT [facility] [...] of incomplete bladder emptying documented in this encounterCl[facility]09-26-2022 Miscellaneous Notes* Telephone Encounter - Stephanie Kaur RN - 12/08/2021 4:11 PM EDT LM for patient to reschedule catheter change for tomorrow. Last changed 11/26/21 in ED. Will be due for change on 12/23/21. Stephanie Kaur R.N. documented in this encounterClerm[facility]09-12-2022 Miscellaneous Notes* Telephone Encounter - [...] has been busy with his spouse at [facility] having to care for her needs and hadn't called earlier when it first started on Wednesday. He was hoping it would clear up but it has not, urine is between [place] tint & Brown and he does see small clots. 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 Stephanie Kaur RN documented in this encounterClermont [facility]08-31-2022 Procedure note* Leonard Dugan MD - 11/12/2021 11:00 AM EDTProcedure(s): CYSTOSCOPY Pre-Procedure Diagnose(s): BPH with obstruction/lower urinary tract symptoms Post-Procedure Diagnose(s): BPH with obstruction/lower urinary tract symptoms PROCEDURE: CYSTOSCOPY INDICATIONS: ED 11/07/21: PVR 179 cc, refused a catheter, scheduled to undergo a cystoscopy in [place] but was cancelled due to his urologist [...] Otherwise, intermittent catheterization. Agreed indwelling catheter 18 qatari. By signing my name below, Zuleika Mnacini, attest that this documentation has been prepared [...] complete. Leonard Dugan M.D. documented in this encounterClermont [facility]08-29-2022 History of Present illness Narrative* Leonard Dugan MD - 11/10/2021 12:11 PM EDT Cysto with uroflow 11-12-21 ED 11/07/21: PVR 179 cc, refused a catheter, scheduled to undergo a cystoscopy in [place] but was cancelled due to his urologist was sick Pt underwent TURP x2 within a week AUA= 3-5 wach ROSAMARIA 11/10/21 - 10 gm, rubbery, no nodules US 11/07/21:= mildly complex renal cysts UA and culture 11-07-21= -ve May need UDS based on cysto documented in [facility] encounterGe[facility] Hospitalaluation + Plan note No data available for this section [facility] Evaluation note* Diagnosis BPH with obstruction/lower urinary tract symptoms- Primary Hypertrophy of prostate with urinary obstruction and other lower urinary tract symptoms (LUTS) Benign prostatic hyperplasia with urinary retention documented [facility] this encounter [facility]* Diagnosis Urinary frequency- Primary Urinary urgency Urgency of urination Urinary straining Straining on urination Feeling of incomplete bladder emptying Incomplete bladder emptying documented in this encounter [facility]* Diagnosis Urinary tract infection without hematuria, site unspecified- Primary Feeling of incomplete bladder emptying Incomplete bladder emptying Benign prostatic hyperplasia with urinary retention documented in this encounter [facility] noteNo assessment information availableRegional Medical Center Work Phone: Evaluation note* Diagnosis Retention of urine- Primary Retention of urine, unspecified Flaccid bladder Neurogenic bladder, NOS documented in this encounter [facility]* Diagnosis Chronic epididymitis- Primary Left hydrocele Hydrocele, unspecified Weak urinary stream Slowing of urinary stream BPH without obstruction/lower urinary tract symptoms Hypertrophy of prostate without urinary obstruction and other lower urinary tract symptoms (LUTS) Epididymitis Orchitis and epididymitis, unspecified documented in this encounter [facility] noteNo [facility] [employer] Other Evaluation note* Diagnosis BPH with obstruction/lower urinary tract symptoms- Primary Hypertrophy of prostate with urinary obstruction and other lower urinary tract symptoms (LUTS) Recurrent UTI Urinary tract infection, site not specified Weak urinary stream Slowing of urinary stream documented in this encounter [facility]* Diagnosis Onset Date Resolution Status Chronic venous insufficiency of lower extremity acute Type 2 diabetes mellitus with hyperglycemia acute Chronic kidney disease acute Chronic venous insufficiency of lower extremity acute Elevated cholesterol acute HTN (hypertension) acute Type 2 diabetes mellitus with hyperglycemia acute [facility] Work Phone: Evaluation note* Diagnosis Onset Date Resolution Status Chronic venous insufficiency of lower extremity acute Type 2 diabetes mellitus with hyperglycemia acute Chronic kidney disease acute Chronic venous insufficiency of lower extremity acute Elevated cholesterol acute HTN (hypertension) acute Overweight acute Type 2 diabetes mellitus with hyperglycemia acute [facility] Work Phone: Evaluation note* Diagnosis Onset [...] acute Preop exam for internal medicine noneactive [facility] Work Phone: Evaluation note* Diagnosis Benign prostatic hyperplasia, unspecified whether lower urinary tract symptoms present- Primary Recurrent UTI Urinary tract infection, site not specified Nocturia documented in this encounter [facility]* Diagnosis Onset Date Resolution Status [...] Type 2 diabetes mellitus with hyperglycemia acute [facility] Work Phone: Evaluation note* Diagnosis Onset Date Resolution Status Chronic kidney disease acute Chronic venous insufficiency of lower extremity acute Elevated cholesterol acute HTN (hypertension) acute Overweight acute Type 2 diabetes mellitus with diabetic polyneuropathy acute Type 2 diabetes mellitus with hyperglycemia acute [facility] Work Phone: Evaluation note* Diagnosis 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 2 diabetes mellitus ([facility])- Primary 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 [...] Type 2 diabetes mellitus with hyperglycemia acute [facility] Work Phone: History general Narrative - [...] cystoscopy 09.20.2019 Hospitalization History see surgical history [facility] Other Hospital Discharge instructions No data available for this section [facility] Progress note No data available for this section [facility] Reason for referral (narrative)* Outpatient Procedure (Routine) - Pending Review Specialty Diagnoses / Procedures Referred By Marce dillon Referred To Contact [facility] Diagnoses 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 Procedures URODYNAMICS MAGGY POST-VOIDING RESIDUAL URINE&/BLADDER CAP Leonard Dugan MD [address] [place] [address] [place] [address] [address] [place] [address] Referral ID Status Reason Start Date Expiration Date Visits Requested Visits Authorized [id number] Pending Review Auto-Generat ed Referral 11/12/2021 11/12/2022 1 1 [facility] Medications Administered Section Inactive Administered Medications - [...] toe of right foot (M20.41) Referral Organization [facility] Juanita ugalde Referring Provider First Name Campbell Referring Provider Last Name Quentin Referring Provider Specialty Internal Me dicarmando Referred Organization [facility] Referred Provider Jhon Tejada Referred Address [address] [place] [place], [place],[address] Referred Provider Specialty Podiatry - S urgical [...] or prosecute any alcohol or drug abuse patient.[facility] HospitalIn the event this information is protected by the Federal Confidentiality of Alcohol and Drug Abuse Patient Records regulations: The Federal rules restrict any use of the information to criminally investigate or prosecute any alcohol or drug abuse patient.[facility] HospitalIn the event this information is protected by the Federal Confidentiality of Alcohol and Drug Abuse Patient Records regulations: The Federal rules restrict any use of the information to criminally investigate or prosecute any alcohol or drug abuse patient.[facility] HospitalIn the event this information is protected by the Federal Confidentiality of Alcohol and Drug Abuse Patient Records regulations: The Federal rules restrict any use of the information to criminally investigate or prosecute any alcohol or drug abuse patient.[facility] HospitalIn the event this information is protected by the Federal Confidentiality of Alcohol and Drug Abuse Patient Records regulations: The Federal rules restrict any use of the information to criminally investigate or prosecute any alcohol or drug abuse patient.[facility] HospitalIn the event this information is protected by the Federal Confidentiality of Alcohol and Drug Abuse Patient Records regulations: The Federal rules restrict any use of the information to criminally investigate or prosecute any alcohol or drug abuse patient.[facility] HospitalIn the event this information is protected by the Federal Confidentiality of Alcohol and Drug Abuse Patient Records regulations: The Federal rules restrict any use of the information to criminally investigate or prosecute any alcohol or drug abuse patient.[facility] HospitalIn the event this information is protected by the Federal Confidentiality of Alcohol and Drug Abuse Patient Records regulations: The Federal rules restrict any use of the information to criminally investigate or prosecute any alcohol or drug abuse patient.[facility] HospitalIn the event this information is protected by the Federal Confidentiality of Alcohol and Drug Abuse Patient Records regulations: The Federal rules restrict any use of the information to criminally investigate or prosecute any alcohol or drug abuse patient.[facility] HospitalIn the event this information is protected by the Federal Confidentiality of Alcohol and Drug Abuse Patient Records regulations: The Federal rules restrict any use of the information to criminally investigate or prosecute any alcohol or drug abuse patient.[facility]In the event this information is protected by the Federal Confidentiality of Alcohol and Drug Abuse Patient Records regulations: The Federal rules restrict any use of the information to criminally investigate or prosecute any alcohol or drug abuse patient.[facility]In the event this information is protected by the Federal Confidentiality of Alcohol and Drug Abuse Patient Records regulations: The Federal rules restrict any use of the information to criminally investigate or prosecute any alcohol or drug abuse patient.[facility]In the event this information is protected by the Federal Confidentiality of Alcohol and Drug Abuse Patient Records regulations: The Federal rules restrict any use of the information to criminally investigate or prosecute any alcohol or drug abuse patient.[facility] Care Teams (unrecognized sec tion [...] Active Low Carter , Emergency Provider Active [employer] Stamper Relationship Specialty Start Date End Date Ran Lees Jr. PCP - General 10/10/09 [employer] Relationship Specialty Start Date End Date Ran Lees Jr. PCP - General 10/10/09 [employer] Relationship Specialty Start Date End Date Ran Lees Jr. PCP - General 10/10/09 [employer]per Relationship Specialty Start Date End Date Campbell Naranjo, DO [address] [place] [address] PCP - General Internal Medicine 11/26/21 [employer]per Relationship Specialty Start Date End Date Campbell Naranjo, DO [address] [place] [address] PCP - General Internal Medicine 11/26/21 [employer]per Relationship Specialty Start Date End Date Campbell Naranjo, DO [address] [place] [address] PCP - General Internal Medicine 11/26/21 [employer] Stamper Relationship Specialty Start Date End Date Campbell Naranjo, DO [address] [place] [facility] [place] [address] PCP - General Internal Medicine 11/26/21 Team Status: Inactive Member Role Status Dates Campbell Naranjo DO Primary Care Provider Active Davis Cervantes MD Emergency Provider Active [employer]amper Relationship Specialty Start Date End Date Campbell Naranjo, DO [address] [place] [place] [address] PCP - General Internal Medicine 11/26/21 Team Status: Inactive Member Role Status Dates Campbell Naranjo DO Primary Care Provider Active Sam Simons DO Emergency Provider Active Team Status: Inactive Member Role Status Dates Campbell Naranjo DO Primary Care Provider Active Sam Simons , Attending Provider Active [employer]amper Relationship Specialty Start Date End Date Campbell Naranjo, DO [address] [place] [address] PCP - General Internal Medicine 11/26/21 [employer] Relationship Specialty Start Date End Date Campbell Naranjo, DO [address] [place] [address] PCP - General Internal Medicine 11/26/21 [employer] Stamper Relationship Specialty Start Date End Date Campbell Naranjo DO [address] [place] [address] PCP - General Internal Medicine 11/26/21 Team [...] July 22, 2023 End: July 22, 2023 [employer]per Relationship Specialty Start Date End Date Campbell Naranjo DO [address] [place] [facility] [address] PCP - General Internal Medicine 11/26/21 Team Status: Active Member Role Status Dates Campbell Naranjo DO Primary Care Provider Active Start: July 26, 2023 Leticia Milian APRN Attending Provider Active Start: July 26, 2023 Team Status: Active Member Role Status Dates Campbell Naranjo DO Primary Care Provider Active Start: August 04, 2023 TAMMY Fair Attending Provider Active Start : August 04, 2023 [employer]per Relationship Specialty Start Date End Date Campbell Naranjo MD [address] [place] [id number] PCP - General Internal Medicine 12/17/23 [employer]amper Relationship Specialty Start Date End Date Campbell Naranjo MD [address] [place] [id number] PCP - General Internal Medicine 12/17/23 [employer]amper Relationship Specialty Start Date End Date Campbell Naranjo MD [address] [place] [id number] PCP - General Internal Medicine 12/17/23 Team [...] section and content) DATE CREATED AUTHOR 12/13/2021 [facility] DATE CREATED AUTHOR AUTHOR'S ORGANIZ ATION 06/25/2022 [facility] DATE CREATED AUTHOR AUTHOR'S ORGANIZ ATION 07/27/2023 [facility] DATE CREATED AUTHOR AUTHOR'S ORGANIZ ATION 08/06/2023 [facility] DATE CREATED AUTHOR AUTHOR'S ORGANIZ ATION 12/19/2023 [facility] DATE CREATED AUTHOR AUTHOR'S ORGANIZ ATION 12/19/2023 [facility] DATE CREATED AUTHOR AUTHOR'S ORGANIZ ATION 12/26/2023 [facility] Goals (unrecognized section and content) Goals may [...] BE BASED ON THE PRIMARY CLINICAL RECORDS. [employer] provides no warranty or guarantee of the accuracy or completeness of information in this document.
[2024-02-02 07:24] LABS: Thyroid Stimulating Hormone 7.582 uIU/mL (0.358-3.740)
== END 2024-01-30 14:54 | disposition home or self-care (01) ==
LOC: LAB 02-01 14:55
PROVIDERS: PCP Internal Medicine; Visit Provider Internal Medicine
DX: R53.83 Other fatigue (principal); I48.3 Typical atrial flutter
CPT/HCPCS: 36415; 84443

== ENCOUNTER 2024-01-30 16:44 | Emergency (ER) | payer MEDICARE, SELFPAY ==
[2024-01-30] VITALS (14 sets, daily range): BP systolic 137–165; BP diastolic 77–103; PULSE 74–142; O2SAT 97–100; BMI 27.5
--- OUTSIDE RECORDS SUMMARY | 2024-01-30 16:51 | XMS_ITS | CCD ---
Author Organization [facility] Care Team Providers Care Power Wood Sawyer Name Role Phone Ran Lees Jr. Primary Care Provider Unava ilable RAN LEES JR Primary Care Unavailable KEELY GUTIERREZ Attending Unavailable CAMPBELL NARANJO Primary Care Unavailable Campbell Naranjo DO Primary Care Provider DO Campbell Naranjo Primary Care Provider [phone] MD Davis Cervantes Emergency Provider [phone] DO Sam Simons Emergency Provider [phone] DO Sam Simons Attending Provider [phone] Campbell Naranjo Unavailable DR CAMPBELL NARANJO Primary Care Unavailable QUENTIN, DR SHERMAN Consulting Unavailable QUENTIN, DR SHERMAN Admitting Unavailable [...] Provider DO Campbell Naranjo Primary Care Provider [phone] Tupa, DO [place] Emergency Provider CHRISTIAN Tejada Attending Provider [phone] Jhon Tejada Attending Unavailable Jhon Tejada Admitting Unavailable BallCampbell Primary Care Unavailable Jhon Tejada Attending Unavailable Jhon Tejada Admitting Unavailable Campbell Naranjo Primary Care Unavailable Tupa, [place] Admitting Unavailable Campbell Naranjo Primary Care Unavailable Emma, [place] Attending Unavailable Tuzack, [place] Attending Unavailable Tuzack, [place] Admitting Unavailable Quentin, Campbell Primary Care Unavailable Ball Campbell BORREGO Primary Care Provider CAMPBELL NARANJO Primary Care Unavailable LETICIA MILIAN Referring Unavailable LETICIA MILIAN Attending Unavailable CAMPBELL NARANJO Primary Care Unavailable CAMPBELL NARANJO Referring Unavailable CAMPBELL NARANJO Primary Care Unavailable CAMPBELL NARANJO Primary Care Unavailable RUKHSANA, LETICIA Sanderson Referring Unavailable CAMPBELL NARANJO Primary Care Unavailable LETICIA MILIAN Attending Unavailable DO Campbell Naranjo Primary Care Provider STERLING ZAMUDIO Attending Unavailable Sterling Zamudio Admitting Unavailable Sterling Zamudio Attending Unavailable Campbell Naranjo MD Primary Care Provider CAMPBELL NARANJO Primary Care Physician [phone] Sterling Zamudio Admitting Unavailable Sterling Zamudio Attending Unavailable Allergies Allergy Classification Reported Allergen(s) Allergy Type Date of Onset Reaction(s) Facility (20 sources) Ciprofloxacin; Translations: [CIPROFLOXACIN] Drug Allergy 08-01-19 10 GI Upset, hives, Weal (disorder) [facility] (20 sources) Sulfonamides (Antibiotic); Translations: [SULFA (SULFONAMIDE ANTIBIOTICS)] Propensity to adverse reactions 08-01-19 10 Rash, hives [facility] (2 sources) Ciprofloxacin; Translations: [Cipro] Drug Allergy [facility] (1 source) Sulfonamides (Antibiotic) Drug allergy (disorder) [facility] (1 source) Allergies Reconciled Propensity to adverse reactions Unknown [facility] Other (1 source) patient allergy list reviewed by nurse or physicia Propensity to adverse reactions 05-20-19 Comment:Done [facility] Other (1 source) Ciprofloxacin Drug Allergy 07-09-19 [facility] Repository (1 source) Sulfonamides (Antibiotic) Drug allergy (disorder) 07-09-19 [facility] Repository (2 sources) Sulfonamides (Antibiotic); Translations: [sulfa drugs] Propensity to adverse reactions (disorder) Weal (disorder) [facility] Repository Medications Current Medications Medication Drug Class(es) Dates Sig (Normalized) Sig (Original) aspirin 81 mg oral tablet (20 sources) [...] FLEX) Start: 10-28-2021 take 1 capsule by [facility] once daily Keflex 500 mg Cap 500 mg = 1 cap(s), Oral, Daily, Take 1 capsule the day before the procedure and 1 capsule after the procedure, # 2 cap(s), Refills(s) 0, Pharmacy: [facility]/pharmacy #[id number], 192, cm, 12/14/19 10:22:00 EDT, Height/Length Dosing, 104, kg, 12/14/19 10:22:00 EDT, Weight Dosing Start Date: 10/28/21 Status: Ordered Comment on above: Take 1 capsule by [facility] twice daily. Take 1 capsule by [facility] three times daily for 3 days. Start [...] (20 sources) Sulfonylurea Start: 12-11-2021 End: 08-04-2023 take 2.5 mg by mouth once daily Glipizide Active 2.5 MG PO Daily 90 90 August 04, 2023 11:00am Start: 01-09-2010 take 1 mg by mouth once daily glipiZIDE 5 mg Tab mg tab(s), Oral, Daily, Refills(s) 0 Start Date: 05/25/19 Status: Ordered Start: 01-09-2010 take 2.5 mg by mouth once torsten y glipiZIDE 5 mg ORAL tablet Take 2.5 mg by mouth once daily. 0 01/09/2010 Active take 1 tablet by [facility] every twenty-four hours glipiZIDE XL 5 MG [...] (20 sources) Angiotensin Converting Enzyme Inhibitor Start: 12-28-2023 Lisinopril Active 10 MG .ROUTE Twice daily December 28, 2023 8:41am 10 mg twice daily; Start: 09-05-2023 End: 12-28-2023 Lisinopril Discontinued 0 .R OUTE .COMPLEX September 05, 2023 8:20am December 28, 2023 8:54am TAKE 1 TABLET DAILY Start: 05-21-2023 End: 09-05-2023 take 20 mg by mouth once daily Lisinopril Discontinued 20 MG PO Daily June 17, 2023 12:03pm September 05, 2023 8:20am Start: 12-11-2021 End: 05-21-2023 take 10 mg [...] d aily. methylsulfonylmethane 1000 mg oral tablet (7 sources) Start: 2023 take 1 capsule by mouth twice daily Methylsulfonylmethane (Msm) 1,000 mg capsule Active 1000 MG PO Twice daily May 21, 2023 1:00am MSM 1500 MG (19 sources) MSM 1500 MG as d irected Orally Active Multi For Him - (4 sources) Multi For Him - as directed Orally Active Multivitamin (Daily Multi-Vitamin) tablet (7 sources) Start: 05-21-19 take 1 tablet by [...] 23, 2023 9:54am Start: 11-14-2019 End: 01-28-2024 take 0.4 mg by mouth once daily at bedtime Tamsulosin Discontinued 0.4 MG PO Daily at bedtime June 23, 2023 9:53am October 12, 2023 8:41am Comment on above: Take 1 capsule by [facility] once daily. Take one cap. daily Turmeric Root-Yulisa Root Ext (7 sources) Start: 05-21-2023 Turmeric Root-Yulisa Root Ext Active TAB PO May 21, 2023 1:00am Turmeric-Yulisa 150-25 MG (4 sources) Turmeric-Yulisa 150-25 MG as directed Orally Active Vitamins A,C,A-Ohpu-Itcinn (Preservision Areds) 4,296 mcg-226 mg-90 mg capsule (1 source) Start: 12-28-2023 take 1 capsule by mouth twice daily Vitamins A,C,X-Iwzb-Vyurwt (Preservision Areds) 4,296 mcg-226 mg-90 mg capsule Active 1 CAP PO Twice daily December 28, 2023 12:00am Completed/Discontinued Medications Medication Drug Class(es) Dates Sig [...] every 4 hours as needed Active amLODIPine 5 mg oral tablet (20 sources) Dihydropyridine Calcium Channel Radha Start: 08-04-2023 End: 12-28-2023 take 5 mg by mouth once daily Amlodipine Discontinued 5 MG PO Daily August 04, 2023 11:01am December 28, 2023 8:40am Start: 05-31-2023 End: 08-04-2023 take 1 tablet [...] MG PO Daily December 11, 2021 12:00am amoxicillin 875 mg / clavulanate 125 mg oral tablet (13 sources) Penicillin-class Antibacterial Start: 4 End: 4 take 1 tablet by mouth twice daily [...] application Externally three times a day Not-Taking/PRN gabapentin 300 mg oral capsule (20 sources) Anti-epileptic Agent Start: 05-25-2019 End: 08-04-2023 take 300 mg by mouth three times daily Gabapentin Discontinued 300 MG PO Three times daily August 04, 2023 12:00am August 04, 2023 11:01am Start: 07-31-2009 End: 08-04-2023 take 300 mg by mouth once daily Gabapentin Discontinued 300 MG PO Daily December 11, 2021 12:00am August 04, 2023 10:51am Gabapentin 300 M G 1 capsule bid and 2 q HS Orally tid Active Comment on above: Take one(1) tablet t wo(2) times daily. ammonium lactate 120 mg/ml topical cream (11 sources) Start: 0 Ammonium Lactate 12 % TOPICAL cream Use twice daily on feet 2 01/09/2010 Active Comment on above: Use twice daily on f eet lovastatin 40 mg oral tablet (20 sources) HMG-CoA Reductase Inhibitor Start: 0 End: 4 take 40 mg by mouth once daily Lovastatin Discontinued 40 MG PO Daily December 11, 2021 12:00am June 17, 2023 12:04pm Comment on above: Lovastatin Active 40 MG PO Daily December 11, 2021 12:00am simvastatin 40 mg oral tablet (20 sources) HMG-CoA Reductase Inhibitor Start: 0 End: 2 simvastatin(ZOCOR 40 MG TAB) Take one(1) tablet daily at bedtime. 0 0 07/31/2009 12/16/2021 Discontinued (Discontinued by Patient) Comment on above: Take one(1) tablet d aily at bedtime. trimethoprim 100 mg oral tablet (12 sources) Dihydrofolate Reductase Inhibitor Antibacterial Start: 2 End: 4 take 100 mg by mouth twice daily [...] depolarization] Onset: 06-23-2016 Chronic Chronic kidney disease (19 sources) Chronic kidney disease stage 3; Translations: [Chronic kidney disease, stage 3 unspecified] Onset: 08-23-2014 06-20-2023 Chronic Chronic ulcer of skin (15 sources) Ulcer of foot; Translations: [Non-pressure chronic ulcer of other part of unspecified foot with unspecified severity] Onset: 10-02-2009 10-02-2009 Chronic Complication of device; implant or graft (11 sources) Disorder of urethral catheter; Translations: [Breakdown [...] of urination] Onset: 11-07-2021 Resolved: 08-28-2019 Episodic Heart valve disorders (1 source) Heart murmur; Translations: [Cardiac murmur, unspecified] 12-28-2023 Episodic Hyperplasia of prostate (20 sources) Benign prostatic hypertrophy with outflow obstruction; Translations: [Benign prostatic hyperplasia with lower urinary tract symptoms] Onset: 03-23-2016 Chronic Immunizations and screening for infectious disease (1 source) Vaccination given; Translations: [Encounter for immunization] Episodic Infective arthritis and osteomyelitis (except that caused by tuberculosis or sexually transmitted disease) (9 sources) Osteomyelitis of right foot; Translations: [Osteomyelitis, [...] sources) H/O: high risk medication; Translations: [Other fdc (current) drug therapy] Episodic Other aftercare (1 source) Long-term current use of drug therapy; Translations: [Other terminal manager (current) drug therapy] Episodic Other circulatory [...] veins and lymphatics (7 sources) Venous insufficiency of leg; Translations: [Venous insufficiency (chronic) (peripheral)] 05-20-2023 Episodic Other diseases of veins and lymphatics (7 sources) Stasis dermatitis; Translations: [Venous insufficiency (chronic) (peripheral)] 05-21-2023 Episodic Other diseases of veins and lymphatics (14 sources) Venous insufficiency (chronic) (peripheral); Translations: [Venous [...] Chronic Other nutritional; endocrine; and metabolic disorders (7 sources) Overweight; Translations: [Overweight] Episodic Other nutritional; endocrine; and metabolic disorders (7 sources) Overweight; Translations: [Overweight] Onset: 10-20-2021 06-23-2023 [...] eye] Episodic Skin and subcutaneous tissue infections (13 sources) Cellulitis of toe of left foot; [...] 08-28-2019 Episodic Other aftercare (1 source) Other fdc (current) drug therapy; Translations: [OTH AMPOULE INSPECTOR CURRENT DRUG THERAPY] Onset: 10-22-2021 Episodic Other [...] CRP [Mass/Vol] 0.2 mg/dL Normal <=1.9mg/dL Remisol Ch em CRPon 12-17-2023 CRP [Mass/Vol] 0.2 mg/dL Normal <=1.9 [facility] Comment on above: Performed By: #### 2 [id number] #### [facility] [address] [place] [address] [facility] PLATELET COUNTon 2023 Platelets (Bld) [#/Vol] 239.0 10*3/uL [facility] Original Ordering Provider: DO Sterling HANNA [facility] HEMATOLOGYOrdered By: Nat Aldridge on 12-17-2023 ESR (Bld) [Velocity] 4 mm/h Normal 0 - 19 mm/hr [facility] HemeAutoSS HEMATOLOGYOrdered By: SYSTEM SYSTEM on 12-17-2023 Platelet 239.0 E9/L Normal 150.0 - 500.0 E9/L Remisol Heme Ophthalmic OCT panelon 12-16 [facility] Right Eye Images reviewed and comparison made to baseline, Images reviewed. To assess optic nerve function and for use in future follow-up. Reliability: good and adequate. Left Eye Images reviewed and comparison made to baseline, Images reviewed. To assess optic nerve function and for use in future follow-up. Reliability: good and adequate. 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 [facility] Study observation (narrative) [facility] Optical coherence tomography study reporton 12-17-2023 [facility] Study observation (narrative) [facility] Platelet Counton 12-17-2023 Platelet 239.0 E9/L Normal 150.0-500.0 [facility] Comment on above: Performed By: #### 2 [id number] #### [facility] [address] [place] [address] Sed Rate Automatedon 024 ESR (Bld) [Velocity] 4 mm/h Normal 0-19 [facility] Comment on above: Performed By: #### 1 [id number] #### [facility] [address] [place] [address] OVon 08-04-2023 CNOV Office Visit (UROLLN) -------- NORBERTO WASHINGTON ([id number]) 1940 M Date Time Provider Department 08/04/23 9:00 AM LETICIA MILIAN UROLLN During your visit today, we recorded the following information about you: Pulse Blood pressure Weight 65/minute 130/56 99.8 kg Leticia Milian, 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 08/04/2023 9:23 AM Signed Norberto Washington [address] [facility] [address] HISTORY OF PRESENT ILLNESS: Seen 02/02/23 for [...] finding today 08/04/23) Pt is presently on terminal manager antibiotic due to infection in toes that went to bone Stated that urinary symptoms have resolved with treatment. PVR=36 ML UA 07/26/23=trace leuk esterase Culture 07/26/23=<10,000 CFU/ml Lactose positive gram negative bacilli Abnormal A1C 07/26/23=6.4 Location: BPH w obs/luts, UTI Pain Character: none Severity Scale: see AUA score, see lab Duration: BPH w obs/luts, UTI [facility] SYMPTOMS SCORE. 1. INCOMPLETE EMPTYING [...] (Diagnostic Possibilitie (more content not included)... Normal [facility] Bacteria Ur Culton 4 Bacteria identified Cx Nom (U) ORGANISM ID: 1 <10,000 CFU/ml Lactose positive gram negative bacilli Insignificant colony count. No further workup. Normal [facility] Comment on above: Performed By: #### 6 30-4 #### [facility] CLIA [id number] [address] [place] [address] [place] Glucose mean value [Mass/vol ume] in Blood Estimated from glycated hemoglobinon 07-26-2023 Average glucose Estimated from glycated hemoglobin (Bld) [Mass/Vol] 137 mg/dL [facility] Comment on above: eAG: (Estimated aver age glucose) is a calculated value from HgbA1c and is sales representative business courses of the average blood glucose level in the last 2-3 month period. HbA1c (Bld)on 07-26-2023 Average glucose Estimated from glycated hemoglobin (Bld) [Mass/Vol] 137 mg/dL Normal [facility] Comment on above: Order Comment: Specfabiana men Type: BLOOD SPECIMEN Ordering Facility: Dr Naranjo and Dr Baptiste Office Address: [address] [place] [address] Result Comment: eAG: (Estimated average glucose) is a calculated value from HgbA1c and is sales representative business courses of the average blood glucose level in the last 2-3 month period. Performed By: #### 5 5454-3 #### [facility] CLIA [id number] [facility] [place] [address] [place] HbA1c (Bld) [Mass fraction] 6.4 % High 4.3-5.6 [facility] Comment on above: Order Comment: Specfabiana men Type: BLOOD SPECIMEN Ordering Facility: Dr Kate Baptiste Office Address: [address] [place] [address] Result Comment: [place] Diabetes Association guidelines indicate that patients with HgbA1c in the range 5.7-6.4% are at increased risk for development of diabetes, and intervention by lifestyle modification may be beneficial. HgbA1c greater or equal to 6.5% is considered diagnostic of diabetes. Performed By: #### 5 5454-3 #### [facility] CLIA [id number] [address] [place] [address] [place] Laboratory - Hematology and Cell countson 07-26-2023 HbA1c (Bld) [Mass fraction] 6.4 % High 4.3-5.6 [facility] Comment on above: [place] [employer] sociation guidelines indicate that patients with HgbA1c in the range 5.7-6.4% are at increased risk for development of diabetes, and intervention by lifestyle modification may be beneficial. HgbA1c greater or equal to 6.5% is considered diagnostic of diabetes. UrinalysisOrdered By: Leticia Milian on 07-26-2023 Urinalysis complete panel (U) [facility] Urinalysis complete panel (U )on 07-26-2023 Bacteria LM.HPF (Urine sed) [#/Area] Negative Normal Negative [facility] Comment on above: Order Comment: Speci men Type: URINE SPECIMEN Ordering Facility: [facility] Address: [address] [place] [address] Performed By: #### 2 4356-8 #### [facility] CLIA [id number] [address] [place] [address] [place] Bilirubin Ql (U) Negative Normal Negative [facility] Comment on above: Order Comment: Speci men Type: URINE SPECIMEN Ordering Facility: [facility] Address: [address] [place] [address] Performed By: #### 2 4356-8 #### [facility] CLIA [id number] [address] [place] [address] [place] Clarity (Unsp spec) Clear Normal Clear [facility] Comment on above: Order Comment: Speci men Type: URINE SPECIMEN Ordering Facility: [facility] Address: [address] [place] [address] Performed By: #### 2 4356-8 #### [facility] CLIA [id number] [address] [place] [address] [place] Color (U) Yellow Normal Yellow [facility] Comment on above: Order Comment: Speci men Type: URINE SPECIMEN Ordering Facility: [facility] Address: [address] [place] [address] Performed By: #### 2 4356-8 #### [facility] CLIA [id number] [address] [place] [address] [place] Epithelial cells LM.HPF (Urine sed) [#/Area] None Seen Normal [facility] Comment on above: Order Comment: Speci men Type: URINE SPECIMEN Ordering Facility: [facility] Address: [address] [place] [address] Performed By: #### 2 4356-8 #### [facility] CLIA [id number] [address] [place] [address] [place] Glucose Test strip (U) [Mass/Vol] Negative Normal Negative [facility] Comment on above: Order Comment: Speci men Type: URINE SPECIMEN Ordering Facility: [facility] Address: [address] [place] [address] Performed By: #### 2 4356-8 #### [facility] CLIA [id number] [address] [place] [address] [place] Hemoglobin Ql (U) Negative Normal Negative [facility] Comment on above: Order Comment: Speci men Type: URINE SPECIMEN Ordering Facility: [facility] Address: [address] [place] [address] Performed By: #### 2 4356-8 #### [facility] CLIA [id number] [address] [place] [address] [place] Hyaline casts (Urine sed) [#/Area] 1-3 /LPF Abnormal 0 /LPF [facility] Comment on above: Order Comment: Speci men Type: URINE SPECIMEN Ordering Facility: [facility] Address: [address] [place] [address] Performed By: #### 2 4356-8 #### [facility] CLIA [id number] [address] [place] [address] [place] Ketones Ql (U) Negative Normal Negative [facility] Comment on above: Order Comment: Speci men Type: URINE SPECIMEN Ordering Facility: [facility] Address: [address] [place] [address] Performed By: #### 2 4356-8 #### [facility] CLIA [id number] [address] [place] [address] [place] Leukocyte esterase Test strip Ql (U) Trace Abnormal Negative [facility] Comment on above: Order Comment: Speci men Type: URINE SPECIMEN Ordering Facility: [facility] Address: [address] [place] [address] Performed By: #### 2 4356-8 #### [facility] CLIA [id number] [address] [place] [address] [place] Nitrite Ql (U) Negative Normal Negative [facility] Comment on above: Order Comment: Speci men Type: URINE SPECIMEN Ordering Facility: [facility] Address: [address] [place] [address] Performed By: #### 2 4356-8 #### [facility] CLIA [id number] [address] [place] [address] [place] pH (U) 6.0 [pH] Normal <8.5 [facility] Comment on above: Order Comment: Speci men Type: URINE SPECIMEN Ordering Facility: [facility] Address: [address] [place] [address] Performed By: #### 2 4356-8 #### [facility] CLIA [id number] [address] [place] [address] [place] Protein (U) [Mass/Vol] Negative Normal Negative [facility] Comment on above: Order Comment: Speci men Type: URINE SPECIMEN Ordering Facility: [facility] Address: [address] [place] [address] Performed By: #### 2 4356-8 #### [facility] CLIA [id number] [address] [place] [address] [place] RBC LM.HPF (Urine sed) [#/Area] 0-2 /HPF Normal 0-2 /HPF [facility] Comment on above: Order Comment: Speci men Type: URINE SPECIMEN Ordering Facility: [facility] Address: [address] [place] [address] Performed By: #### 2 4356-8 #### [facility] CLIA [id number] [address] [place] [address] [place] Specific gravity (U) [Rel density] 1.016 Normal 1.005-1.030 [facility] Comment on above: Order Comment: Speci men Type: URINE SPECIMEN Ordering Facility: [facility] Address: [address] [place] [address] Performed By: #### 2 4356-8 #### [facility] CLIA [id number] [address] [place] [address] [place] Urobilinogen Ql (U) 0.2 EU/dL Normal 0.2-1.0 EU/dL [facility] Comment on above: Order Comment: Speci men Type: URINE SPECIMEN Ordering Facility: [facility] Address: [address] [place] [address] Performed By: #### 2 4356-8 #### [facility] CLIA [id number] [address] [place] [address] [place] WBC LM.HPF (Urine sed) [#/Area] 0-5 /HPF Normal 0-5 /HPF [facility] Comment on above: Order Comment: Speci men Type: URINE SPECIMEN Ordering Facility: [facility] Address: [address] [place] [address] Performed By: #### 2 4356-8 #### [facility] CLIA [id number] [address] [place] [address] [place] Urine culture routineOrdered By: Leticia Milian on 07-26-2023 Bacteria identified Cx Nom (U) [facility] Basophils Auto (Bld) [#/Vol] on 07-22-2023 Basophils (Bld) [#/Vol] 0.0 10 3/uL 0.0-0.1 [facility] Basophils/100 WBC Auto (Bld) on 07-22-2023 Basophils/100 WBC (Bld) 0.5 % 0.2-2.0 [facility] Eosinophils/100 WBC Auto (Bl d)on 07-22-2023 Eosinophils/100 WBC (Bld) 2.7 % 0.9-7.0 [facility] Erythrocyte distribution wid th Auto (RBC) [Ratio]on 07-22-2023 Erythrocyte distribution width (RBC) [Ratio] 12.2 % 11.0-15.0 [facility] Estimated glomerular filtrat ion rate (GFR) non- Americanon 07-22-2023 GFR/1.73 sq M.predicted among non-blacks MDRD (S/P/Bld) [Vol rate/Area] 49 mL/min/{1.73_m2} Low >=60 [facility] Hematocrit Auto (Bld) [Volum e fraction]on 07-22-2023 Hematocrit (Bld) [Volume fraction] 37.8 % Low 42.0-54.0 [facility] Hemoglobin [Mass/volume] in Bloodon 07-22-2023 Hemoglobin (Bld) [Mass/Vol] 12.6 g/dL Low 14.0-18.0 [facility] Yuri 07-22-2023 L Specimen: [id number] Received: 07/22/23 Status: MARY Najera Num: [id number] Spec Type: Surgical Subm Dr: Jhon Tejada DPM, MS Tissues: A DIGIT AMPUTATION (DISTAL RT FOURTH TOE) Procedures: HE/2, Gross/Micro L4, Decalcification Age/ Patient Sex Location Account Attending Physician Norberto Washington 83/M LABELL [id number] Jhon Tejada DPM, MS SPEC NUM: [id number] RECD: 07/22/23 STATUS: MARY NAJERA NUM: [id number] CAITY: 07/22/[address]: Jhon Tejada,CHRISTIAN, MS ENTERED: 07/22/23 [facility] DR: Anderson,Lab SPEC TYPE: Surgical DEPT: GILBERTO [...] history: Disruption of surgical wound CPT Codes 61635 -- -- Specimen: [id number] Received: 07/22/23 Status: MARY Najera Num: [id number] Spec Type: Surgical Subm Dr: Jhon Tejada DPM, MS Tissues: A DIGIT AMPUTATION (DISTAL RT FOURTH TOE) Procedures: HE/2, Gross/Micro L4, Decalcification -- Patient: Norberto Washington [id number] (Continued) -- Signed (signatu re on file) Gin Talley MD 07/26/23 1525 Normal [facility] Laboratory - Chemistry and C hemistry - challengeon 07-22-2023 Calcium [Mass/Vol] 9.0 mg/dL 8.5-10.1 [facility] Chloride [Moles/Vol] 98 mmol/L 98-107 [facility] CO2 [Moles/Vol] 27.0 mmol/L 21.0-32.0 [facility] Creatinine [Mass/Vol] 1.39 mg/dL High 0.70-1.30 [facility] GFR/1.73 sq M.predicted MDRD (S/P/Bld) [Vol rate/Area] 59 mL/min/{1.73_m2} Low >=60 [facility] Glucose [Mass/Vol] 120 mg/dL High 74-106 [facility] Potassium [Moles/Vol] 4.9 mmol/L 3.5-5.1 [facility] Sodium [Moles/Vol] 135 mmol/L Low 136-145 [facility] Urea nitrogen [Mass/Vol] 23.0 mg/dL High 7.0-18.0 [facility] Urea nitrogen/Creatinine [Mass ratio] 16.5 mg/mg [facility] Laboratory - Hematology and Cell countson 07-22-2023 Immature granulocytes/100 WBC (Bld) 0.5 % 0.0-0.5 [facility] Leukocytes [#/volume] correc marshal for nucleated erythrocytes in Blood by Automated counon 07-22-2023 WBC corrected for nucl RBC Auto (Bld) [#/Vol] 8.1 10 3/uL 4.0-11.0 [facility] Lymphocytes Auto (Bld) [#/Vo l]on 07-22-2023 Lymphocytes (Bld) [#/Vol] 2.3 10 3/uL 1.2-3.8 [facility] Lymphocytes/100 WBC Auto (Bl d)on 07-22-2023 Lymphocytes/100 WBC (Bld) 28.3 % 20.5-60.0 [facility] MCH Auto (RBC) [Entitic mass ]on 07-22-2023 MCH (RBC) [Entitic mass] 30.7 pg 25.9-34.0 [facility] MCHC Auto (RBC) [Mass/Vol]on 07-22-2023 MCHC (RBC) [Mass/Vol] 33.3 g/dL 29.9-35.2 [facility] MCV Auto (RBC) [Entitic vol] on 07-22-2023 MCV (RBC) [Entitic vol] 92.0 fL 80.0-94.0 [facility] Monocytes Auto (Bld) [#/Vol] on 07-22-2023 Monocytes (Bld) [#/Vol] 1.1 10 3/uL High 0.3-0.8 [facility] Monocytes/100 WBC Auto (Bld) on 07-22-2023 Monocytes/100 WBC (Bld) 13.7 % High 1.7-12.0 [facility] Neutrophils Auto (Bld) [#/Vo l]on 07-22-2023 Neutrophils (Bld) [#/Vol] 4.4 10 3/uL 1.4-6.5 [facility] Neutrophils/100 WBC Auto (Bl d)on 07-22-2023 Neutrophils/100 WBC (Bld) 54.3 % 43.0-75.0 [facility] No Panel Informationon 07-21 Eosinophils # (Auto) 0.2 10 3/uL 0.0-0.7 [facility] Immature Granulocyte # (Auto) 0.04 10 3/uL High 0.00-0.03 [facility] Platelet mean volume Auto (B ld) [Entitic vol]on 07-22-2023 Platelet mean volume (Bld) [Entitic vol] 8.2 fL Low 9.5-13.5 [facility] Platelets Auto (Bld) [#/Vol] on 07-22-2023 Platelets (Bld) [#/Vol] 268 10 3/uL 150-450 [facility] RBC Auto (Bld) [#/Vol]on RBC (Bld) [#/Vol] 4.11 10 6/uL Low 4.70-6.10 [facility] Serum or plasma anion gap de terminationon 07-22-2023 Anion gap [Moles/Vol] 14.9 mmol/L [facility] Yuri 07-12-2023 L Specimen: [id number] Received: 07/12/23 Status: MARY Najera Num: [id number] Spec Type: Surgical Subm Dr: Jhon Tejada DPM, MS Tissues: A DIGIT AMPUTATION (LT FOURTH TOE) B DIGIT AMPUTATION (RT FOURTH TOE) Procedures: HE/4, Gross/Micro L4/2, Decalcification/2 Age/ Patient Sex Location Account Attending Physician Norberto Washington 83/Kaylin LABELL [id number] Jhon Tejada DPM, MS SPEC NUM: [id number] RECD: 07/12/23 STATUS: MARY NAJERA NUM: [id number] CAITY: 07/12/[address]: Jhon Tejada DPM, MS ENTERED: 07/12/23 [facility] DR: Chaim Barron SPEC TYPE: Surgical DEPT: [...] digit. The skin surface is -- Specimen: [id number] Received: 07/12/23 Status: MARY Underwoodjomar Num: [id number] Spec Type: Surgical Subm Dr: Jhon Tejada,DPKaylin, MS Tissues: A DIGIT AMPUTATION (LT FOURTH TOE) B DIGIT AMPUTATION (RT FOURTH TOE) Procedures: HE/Anabel, Gross/Micro L4/2, Decalcification/2 -- Patient: Norberto Washington [id number] ([facility]) -- Specimen: [id number] Received: 07/12/23 (Continued) Gross Description (Continued) Signed (signatu re on file) Yisel Kaminski MD 07/13/231921 -- Specimen: [id number] Received: 07/12/23 Status: MARY Najera Num: [id number] Spec Type: Surgical Subm Dr: Jhon Tejada,CHRISTIAN, MS Tissues: A DIGIT AMPUTATION (LT FOURTH TOE) B DIGIT AMPUTATION (RT FOURTH TOE) Procedures: AVEL, Gross/Micro L4/2, Decalcification/2 -- Patient: Norberto Washington [id number] (Continued) -- Specimen: [id number] Received: 07/12/23 (Continued) Gross Description (Continued) 90% [...] foot, osteomyelitis right foot TW CPT Codes 26746 X2 41274 X2 -- -- Specimen: [id number] Received: 07/12/23 Status: MARY Najera Num: [id number] Spec Type: Surgical Subm Dr: Jhon Tejada,CHRISTIAN, MS Tissues: A DIGIT AMPUTATION (LT FOURTH TOE) B DIGIT AMPUTATION (RT FOURTH TOE) Procedures: HE/4, Gross/Micro L4/2, Decalcification/2 -- Patient: Norberto Washington [id number] (Continued) -- Signed (signatu re on f (more content not included)... Normal [facility] Basophils Auto (Bld) [#/Vol] on 07-06-2023 Basophils (Bld) [#/Vol] 0.0 10 3/uL 0.0-0.1 [facility] Basophils/100 WBC Auto (Bld) on 07-06-2023 Basophils/100 WBC (Bld) 0.4 % 0.2-2.0 [facility] Eosinophils/100 WBC Auto (Bl d)on 07-06-2023 Eosinophils/100 WBC (Bld) 2.3 % 0.9-7.0 [facility] Erythrocyte distribution wid th Auto (RBC) [Ratio]on 07-06-2023 Erythrocyte distribution width (RBC) [Ratio] 12.4 % 11.0-15.0 [facility] Estimated glomerular filtrat ion rate (GFR) non- Americanon 07-06-2023 GFR/1.73 sq M.predicted among non-blacks MDRD (S/P/Bld) [Vol rate/Area] 59 mL/min/{1.73_m2} Low >=60 [facility] Hematocrit Auto (Bld) [Volum e fraction]on 07-06-2023 Hematocrit (Bld) [Volume fraction] 37.5 % Low 42.0-54.0 [facility] Hemoglobin [Mass/volume] in Bloodon 07-06-2023 Hemoglobin (Bld) [Mass/Vol] 12.5 g/dL Low 14.0-18.0 [facility] Laboratory - Chemistry and C hemistry - challengeon 07-06-2023 Calcium [Mass/Vol] 9.0 mg/dL 8.5-10.1 [facility] Chloride [Moles/Vol] 98 mmol/L 98-107 [facility] CO2 [Moles/Vol] 27.6 mmol/L 21.0-32.0 [facility] Creatinine [Mass/Vol] 1.17 mg/dL 0.70-1.30 [facility] GFR/1.73 sq M.predicted MDRD (S/P/Bld) [Vol rate/Area] mL/min/{1.73_m2} >=60 [facility] Glucose [Mass/Vol] 109 mg/dL High 74-106 [facility] Potassium [Moles/Vol] 5.1 mmol/L 3.5-5.1 [facility] Sodium [Moles/Vol] 134 mmol/L Low 136-145 [facility] Urea nitrogen [Mass/Vol] 23.0 mg/dL High 7.0-18.0 [facility] Urea nitrogen/Creatinine [Mass ratio] 19.7 mg/mg [facility] Laboratory - Hematology and Cell countson 07-06-2023 Immature granulocytes/100 WBC (Bld) 0.4 % 0.0-0.5 [facility] Leukocytes [#/volume] correc marshal for nucleated erythrocytes in Blood by Automated counon 07-06-2023 WBC corrected for nucl RBC Auto (Bld) [#/Vol] 8.0 10 3/uL 4.0-11.0 [facility] Lymphocytes Auto (Bld) [#/Vo l]on 07-06-2023 Lymphocytes (Bld) [#/Vol] 1.8 10 3/uL 1.2-3.8 [facility] Lymphocytes/100 WBC Auto (Bl d)on 07-06-2023 Lymphocytes/100 WBC (Bld) 22.3 % 20.5-60.0 [facility] MCH Auto (RBC) [Entitic mass ]on 07-06-2023 MCH (RBC) [Entitic mass] 30.7 pg 25.9-34.0 [facility] MCHC Auto (RBC) [Mass/Vol]on 07-06-2023 MCHC (RBC) [Mass/Vol] 33.3 g/dL 29.9-35.2 [facility] MCV Auto (RBC) [Entitic vol] on 07-06-2023 MCV (RBC) [Entitic vol] 92.1 fL 80.0-94.0 [facility] Monocytes Auto (Bld) [#/Vol] on 07-06-2023 Monocytes (Bld) [#/Vol] 1.2 10 3/uL High 0.3-0.8 [facility] Monocytes/100 WBC Auto (Bld) on 07-06-2023 Monocytes/100 WBC (Bld) 15.0 % High 1.7-12.0 [facility] Neutrophils Auto (Bld) [#/Vo l]on 07-06-2023 Neutrophils (Bld) [#/Vol] 4.8 10 3/uL 1.4-6.5 [facility] Neutrophils/100 WBC Auto (Bl d)on 07-06-2023 Neutrophils/100 WBC (Bld) 59.6 % 43.0-75.0 [facility] No Panel Informationon 07-05 Eosinophils # (Auto) 0.2 10 3/uL 0.0-0.7 [facility] Immature Granulocyte # (Auto) 0.03 10 3/uL 0.00-0.03 [facility] Platelet mean volume Auto (B ld) [Entitic vol]on 07-06-2023 Platelet mean volume (Bld) [Entitic vol] 8.9 fL Low 9.5-13.5 [facility] Platelets Auto (Bld) [#/Vol] on 07-06-2023 Platelets (Bld) [#/Vol] 242 10 3/uL 150-450 [facility] RBC Auto (Bld) [#/Vol]on RBC (Bld) [#/Vol] 4.07 10 6/uL Low 4.70-6.10 [facility] Serum or plasma anion gap de terminationon 07-06-2023 Anion gap [Moles/Vol] 13.5 mmol/L [facility] US venous duplex LE RTon US venous duplex LE RT [place] [id number] Ultrasound Report Signed Patient: Norberto Washington MR#: [id number] : 1940 Acct:[id number] Age/Sex: 83 / M ADM Date: 05/15/23 Loc: ER Room: Type: [facility] ER Attending Dr: Ordering Provider: Low Carter [...] Gus Wren MD05/16/2023 11:15 AM Dictation Location: [place] [address] Tech: Helen Malloy Transcribed By: PAUL 05/16/23 1115 Dictated By: Gus Wren MD 05/16/23 111 Signed By: 05/16/23 1115 Normal [facility] Estimated glomerular filtrat ion rate (GFR) non- Americanon 05-03-2023 GFR/1.73 sq M.predicted among non-blacks MDRD (S/P/Bld) [Vol rate/Area] mL/min/{1.73_m2} >=60 [facility] Laboratory - Chemistry and C hemistry - challengeon 05-03-2023 Calcium [Mass/Vol] 8.5 mg/dL 8.5-10.1 [facility] Chloride [Moles/Vol] 100 mmol/L 98-107 [facility] CO2 [Moles/Vol] 27.6 mmol/L 21.0-32.0 [facility] Creatinine [Mass/Vol] 1.06 mg/dL 0.70-1.30 [facility] GFR/1.73 sq M.predicted MDRD (S/P/Bld) [Vol rate/Area] mL/min/{1.73_m2} >=60 [facility] Glucose [Mass/Vol] 135 mg/dL 74-106 [facility] Potassium [Moles/Vol] 4.1 mmol/L 3.5-5.1 [facility] Sodium [Moles/Vol] 136 mmol/L 136-145 [facility] Urea nitrogen [Mass/Vol] 19.0 mg/dL 7.0-18.0 [facility] Urea nitrogen/Creatinine [Mass ratio] 17.9 mg/mg [facility] No Panel Informationon 05-03 C-Reactive Protein, Quantitative <0.50 mg/dL <=0.50 [facility] Serum or plasma anion gap de terminationon 05-03-2023 Anion gap [Moles/Vol] 12.5 mmol/L [facility] Estimated glomerular filtrat ion rate (GFR) non- Americanon 04-30-2023 GFR/1.73 sq M.predicted among non-blacks MDRD (S/P/Bld) [Vol rate/Area] mL/min/{1.73_m2} >=60 [facility] Laboratory - Chemistry and C hemistry - challengeon 04-30-2023 Calcium [Mass/Vol] 8.7 mg/dL 8.5-10.1 [facility] Chloride [Moles/Vol] 101 mmol/L 98-107 [facility] CO2 [Moles/Vol] 29.2 mmol/L 21.0-32.0 [facility] Creatinine [Mass/Vol] 1.06 mg/dL 0.70-1.30 [facility] GFR/1.73 sq M.predicted MDRD (S/P/Bld) [Vol rate/Area] mL/min/{1.73_m2} >=60 [facility] Glucose [Mass/Vol] 93 mg/dL 74-106 [facility] Potassium [Moles/Vol] 4.6 mmol/L 3.5-5.1 [facility] Sodium [Moles/Vol] 136 mmol/L 136-145 [facility] Urea nitrogen [Mass/Vol] 20.0 mg/dL 7.0-18.0 [facility] Urea nitrogen/Creatinine [Mass ratio] 18.9 mg/mg [facility] No Panel Informationon 04-30 C-Reactive Protein, Quantitative 0.50 mg/dL <=0.50 [facility] Vancomycin Level Trough 11.0 ug/mL 5.0-20.0 [facility] Serum or plasma anion gap de terminationon 04-30-2023 Anion gap [Moles/Vol] 10.4 mmol/L [facility] CNOVon 02-02-2023 CNOV Office Visit (UROLLN) -------- NORBERTO WASHINGTON ([id number]) 1940 M Date Time Provider Department 02/02/23 1:30 PM LETICIA MILIAN During your visit today, we recorded the following information about you: Pulse Blood pressure Weight 65/minute 146/70 102.1 kg Lteicia Milian, 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 02/02/2023 2:13 PM Signed Norberto Washington [address] [facility] [address] HISTORY OF PRESENT ILLNESS: Seen 07/28/22 for [...] see lab Duration: BPH w obs/luts, UTI [facility] SYMPTOMS SCORE. 1. INCOMPLETE EMPTYING [...] Stream (imp (more content not included)... Normal [facility] Bacteria Ur Culton 3 Bacteria identified Cx Nom (U) CULTURE, URINE: No growth (<1,000 CFU/ml) Normal [facility] Comment on above: Performed By: #### 6 30-4 #### [facility] CLIA [id number] [address] [place] [address] [place] GLYCOHEMOGLOBIN A1Con 2022 ADA RECOMMENDATION SEE BELOW Normal [facility] Comment on above: Result Comment: ADA RECOMMENDED LIMIT 4.0 - 6.0 ADA THERAPEUTIC TARGET < 7.0 ACTION SUGGESTED > 7.0 Performed By: #### A 1C #### [facility] [address] [place] [address] [address] Juan Pablo Kaminski Glucose [Mass/Vol] 128 mg/dL Normal [facility] Comment on above: Performed By: #### A 1C #### [facility] [address] [place] [address] [address] Juan Pablo Kaminski HbA1c (Bld) [Mass fraction] 6.1 % Normal 4.5-6.2 [facility] Comment on above: Performed By: #### A 1C #### [facility] [address] [place] [address] [address] Juan Pablo Kaminski A1C with Estimated Average G ashokn 03-20-2022 A1C with Estimated Average Glu 128 [facility] [employer] Other A1C with Estimated Average Glu Fly [facility] [employer] Other HbA1c (Bld) [Mass fraction] 6.1 % Normal 4.5-6.2 [facility] [employer] Other Comment on above: Performed By: #### A 1C #### [facility] [address] [place] [address] [address] Juan Pablo Kaminski GLYCOHEMOGLOBIN A1Con 2022 ADA RECOMMENDATION SEE BELOW Normal [facility] Comment on above: Result Comment: ADA RECOMMENDED LIMIT 4.0 - 6.0 ADA THERAPEUTIC TARGET < 7.0 ACTION SUGGESTED > 7.0 Performed By: #### A 1C #### [facility] [address] [place] [address] Dr. Juan Pablo Kaminski Glucose [Mass/Vol] 128 mg/dL Normal [facility] Comment on above: Performed By: #### A 1C #### [facility] [address] [place] [address] Dr. Juan Pablo Kaminski US SCROTUM W [...] LEIDY PEREIRA Date: 2021-12-25 18:32 Normal [facility] Urine culture routineOrdered By: Sam Simons on 12-19-2021 Bacteria identified Cx Nom (U) Pseudomonas aeruginosa [facility] Automated erythrocytes count in urine sediment (number/area)Ordered By: Sam Simons on 12-17-2021 RBC Auto (Urine sed) [#/Area] 1-2 [HPF] 0-4 [facility] Automated leukocytes count i n urine sediment (number/area)Ordered By: Sam Simons on 12-17-2021 WBC Auto (Urine sed) [#/Area] 20-49 [HPF] 0-4 [facility] Bilirubin Test strip Ql (U)O rdered By: Sam Simons on 12-17-2021 Bilirubin Ql (U) Negative Negative [facility] Color Auto (U)Ordered By: Micheal Simons on 12-17-2021 Color (U) Yellow Yellow [facility] Ketones Auto test strip (U) [Mass/Vol]Ordered By: Sam Simons on 12-17-2021 Ketones (U) [Mass/Vol] Negative Negative [facility] Laboratory - UrinalysisOrder ed By: Sam Simons on 12-17-2021 Hyaline casts LM Ql (Urine sed) 0-8 [LPF] 0-8 [facility] Nitrite Test strip Ql (U)Ord ered By: Sam Simons on 12-17-2021 Nitrite Ql (U) Negative Negative [facility] Protein Auto test strip (U) [Mass/Vol]Ordered By: Sam Simons on 12-17-2021 Protein (U) [Mass/Vol] Negative Negative [facility] Specific gravity Auto test s trip (U) [Rel density]Ordered By: Sam Simons on 12-17-2021 Specific gravity (U) [Rel density] 1.016 1.001-1.030 [facility] Squamous epithelial cells de tection in urine sediment by light microscopyOrdered By: Sam Simons on 12-17-2021 Epithelial cells.squamous LM Ql (Urine sed) 0-1 [HPF] 0-2 [facility] Urine bacteria detection by automated methodOrdered By: Sam Simons on 12-17-2021 Bacteria Auto Ql (U) None seen None Seen [facility] Urine clarity by refractomet ry automatedOrdered By: Sam Simons on 12-17-2021 Clarity Refractometry automated (U) Clear Clear [facility] Urine glucose measurement by automated test strip (mass/volume)Ordered By: Sam Simons on 12-17-2021 Glucose Auto test strip (U) [Mass/Vol] Normal mg/dL Normal [facility] Urine hemoglobin detection b y automated test stripOrdered By: Sam Simons on 12-17-2021 Hemoglobin Auto test strip Ql (U) Negative Negative [facility] Urine leukocyte esterase det ection by automated test stripOrdered By: Sam Simons on 12-17-2021 Leukocyte esterase Auto test strip Ql (U) 4+ Negative [facility] Urobilinogen Auto test strip (U) [Mass/Vol]Ordered By: Sam Simons on 12-17-2021 Urobilinogen (U) [Mass/Vol] Normal mg/dL Normal [facility] pH Auto test strip (U)Ordere d By: Sam Simons on 12-17-2021 pH (U) 6.0 [pH] 5.0-9.0 [facility] Urine culture routineOrdered By: Davis Cervantes on 12-13-2021 Bacteria identified Cx Nom (U) No Growth 2 Days [facility] Automated erythrocytes count in urine sediment (number/area)Ordered By: Davis Cervantes on 12-11-2021 RBC Auto (Urine sed) [#/Area] 20-49 [HPF] 0-4 [facility] Automated leukocytes count i n urine sediment (number/area)Ordered By: Davis Cervantes on 12-11-2021 WBC Auto (Urine sed) [#/Area] 10-19 [HPF] 0-4 [facility] Basophils Auto (Bld) [#/Vol] Ordered By: Davis Cervantes on 12-11-2021 Basophils (Bld) [#/Vol] 0.1 10*3/uL 0.0-0.2 [facility] Basophils/100 WBC Auto (Bld) Ordered By: Davis Cervantes on 12-11-2021 Basophils/100 WBC (Bld) 1.2 % . F [facility] Bilirubin Test strip Ql (U)O rdered By: Davis Cervantes on 12-11-2021 Bilirubin Ql (U) Negative Negative [facility] Blood hemoglobin measurement (mass/volume)Ordered By: Davis Cervantes on 12-11-2021 Hemoglobin (Bld) [Mass/Vol] 13.3 g/dL 13.0-17.0 [facility] Blood leukocytes automated c ount (number/volume)Ordered By: Davis Cervantes on 12-11-2021 WBC (Bld) [#/Vol] 8.2 10*3/uL 4.5-11.0 [facility] Color Auto (U)Ordered By: Mary Cervantes on 12-11-2021 Color (U) Yellow Yellow [facility] Creatinine and Glomerular fi ltration rate.predicted panel (S/P/Bld)Ordered By: Davis Cervantes on 12-11-2021 Creatinine [Mass/Vol] 1.16 mg/dL 0.64-1.27 [facility] Eosinophils Auto (Bld) [#/Vo l]Ordered By: Davis Cervantes on 12-11-2021 Eosinophils (Bld) [#/Vol] 0.2 10*3/uL 0.0-0.45 [facility] Eosinophils/100 WBC Auto (Bl d)Ordered By: Davis Cervantes on 12-11-2021 Eosinophils/100 WBC (Bld) 2.9 % . [facility] Erythrocyte distribution wid th Auto (RBC) [Ratio]Ordered By: Davis Cervantes on 12-11-2021 Erythrocyte distribution width (RBC) [Ratio] 11.8 % 12.0-14.8 [facility] Estimated glomerular filtrat ion rate (GFR) non- AmericanOrdered By: Davis Cervantes on 12-11-2021 GFR/1.73 sq M.predicted among non-blacks MDRD (S/P/Bld) [Vol rate/Area] 60 mL/Min [facility] Hematocrit Auto (Bld) [Volum e fraction]Ordered By: Davis Cervantes on 12-11-2021 Hematocrit (Bld) [Volume fraction] 39.6 % 38.8-50.0 [facility] Ketones Auto test strip (U) [Mass/Vol]Ordered By: Davis Cervantes on 12-11-2021 Ketones (U) [Mass/Vol] Negative Negative [facility] - Hematology and Cell countsOrdered By: Davis Cervantes on 12-11-2021 Nucleated RBC/100 WBC (Bld) [Ratio] 0.0 % 0-0.5 [facility] Laboratory - UrinalysisOrder ed By: Davis Cervantes on 12-11-2021 Hyaline casts LM Ql (Urine sed) 0-8 [LPF] 0-8 [facility] Lymphocytes Auto (Bld) [#/Vo l]Ordered By: Davis Cervantes on 12-11-2021 Lymphocytes (Bld) [#/Vol] 1.9 10*3/uL 1.00-4.8 [facility] Lymphocytes/100 WBC Auto (Bl d)Ordered By: Davis Cervantes on 12-11-2021 Lymphocytes/100 WBC (Bld) 23.3 % . [facility] MCH Auto (RBC) [Entitic mass ]Ordered By: Davis Cervantes on 12-11-2021 MCH (RBC) [Entitic mass] 32.0 pg 27.5-35.2 [facility] MCHC Auto (RBC) [Mass/Vol]Or dered By: Davis Cervantes on 12-11-2021 MCHC (RBC) [Mass/Vol] 33.6 g/dL 32.5-35.6 [facility] MCV Auto (RBC) [Entitic vol] Ordered By: Davis Cervantes on 12-11-2021 MCV (RBC) [Entitic vol] 95.1 fL 83.5-101 [facility] Monocytes Auto (Bld) [#/Vol] Ordered By: Davis Cervantes on 12-11-2021 Monocytes (Bld) [#/Vol] 1.1 10*3/uL 0.0-0.8 [facility] Monocytes/100 WBC Auto (Bld) Ordered By: Davis Cervantes on 12-11-2021 Monocytes/100 WBC (Bld) 13.6 % . [facility] Neutrophils Auto (Bld) [#/Vo l]Ordered By: Davis Cervantes on 12-11-2021 Neutrophils (Bld) [#/Vol] 4.8 10*3/uL 1.8-7.7 [facility] Neutrophils/100 WBC Auto (Bl d)Ordered By: Davis Cervantes on 12-11-2021 Neutrophils/100 WBC (Bld) 59.0 % . [facility] Nitrite Test strip Ql (U)Ord ered By: Davis Cervantes on 12-11-2021 Nitrite Ql (U) Negative Negative [facility] No Panel InformationOrdered By: Davis Cervantes on 12-11-2021 Estimated GFR () > 60 mL/Min [facility] Comment on above: GFR estimated refere nce range: According to KDOQI guidelines, <60 ml/min/1.73m2 is sufficient to diagnose a patient with chronic kidney disease. Pharmacy Creatinine Clearance (Chem 57.67 [facility] Platelet mean volume Auto (B ld) [Entitic vol]Ordered By: Davis Cervantes on 12-11-2021 Platelet mean volume (Bld) [Entitic vol] 7.0 fL 6.6-10.1 [facility] Platelets Auto (Bld) [#/Vol] Ordered By: Davis Cervantes on 12-11-2021 Platelets (Bld) [#/Vol] 266 10*3/uL 150-450 [facility] Protein Auto test strip (U) [Mass/Vol]Ordered By: Davis Cervantes on 12-11-2021 Protein (U) [Mass/Vol] Negative Negative [facility] RBC Auto (Bld) [#/Vol]Ordere d By: Davis Cervantes on 12-11-2021 RBC (Bld) [#/Vol] 4.17 10*6/uL 3.90-5.60 [facility] Serum or plasma anion gap de terminationOrdered By: Davis Cervantes on 12-11-2021 Anion gap [Moles/Vol] 12.2 mmol/L 6.0-15.0 [facility] Serum or plasma calcium maggy urement (mass/volume)Ordered By: Davis Cervantes on 12-11-2021 Calcium [Mass/Vol] 9.0 mg/dL 8.2-10.2 [facility] Serum or plasma chloride duran surement (moles/volume)Ordered By: Davis Cervantes on 12-11-2021 Chloride [Moles/Vol] 96 mmol/L 95-114 [facility] Serum or plasma glucose maggy urement (mass/volume)Ordered By: Davis Cervantes on 12-11-2021 Glucose [Mass/Vol] 131 mg/dL 70-100 [facility] Comment on above: ADA recommended refe rence rangeRandom Glucose Reference Range is dependent on time and content of last meal. Glucose of more than 200 mg/dL in a nonstressed, ambulatory subject supports the diagnosis of Diabetes Mellitus. Serum or plasma potassium me asurement (moles/volume)Ordered By: Davis Cervantes on 12-11-2021 Potassium [Moles/Vol] 4.5 mmol/L 3.5-5.1 [facility] Serum or plasma sodium measu rement (moles/volume)Ordered By: Davis Cervantes on 12-11-2021 Sodium [Moles/Vol] 131 mmol/L 136-146 [facility] Serum or plasma total carbon dioxide measurement (moles/volume)Ordered By: Davis Cervantes on 12-11-2021 CO2 [Moles/Vol] 27.3 mmol/L 22.0-30.0 [facility] Serum or plasma urea nitroge n measurement (mass/volume)Ordered By: Davis Cervantes on 12-11-2021 Urea nitrogen [Mass/Vol] 20 mg/dL 9-23 [facility] Specific gravity Auto test s trip (U) [Rel density]Ordered By: Davis Cervantes on 12-11-2021 Specific gravity (U) [Rel density] 1.014 1.001-1.030 [facility] Squamous epithelial cells de tection in urine sediment by light microscopyOrdered By: Davis Cervantes on 12-11-2021 Epithelial cells.squamous LM Ql (Urine sed) 0-1 [HPF] 0-2 [facility] Urine bacteria detection by automated methodOrdered By: Davis Cervantes on 12-11-2021 Bacteria Auto Ql (U) None seen None Seen [facility] Urine clarity by refractomet ry automatedOrdered By: Davis Cervantes on 12-11-2021 Clarity Refractometry automated (U) Clear Clear [facility] Urine glucose measurement by automated test strip (mass/volume)Ordered By: Davis Cervantes on 12-11-2021 Glucose Auto test strip (U) [Mass/Vol] Normal mg/dL Normal [facility] Urine hemoglobin detection b y automated test stripOrdered By: Davis Cervantes on 12-11-2021 Hemoglobin Auto test strip Ql (U) 2+ Negative [facility] Urine leukocyte esterase det ection by automated test stripOrdered By: Davis Cervantes on 12-11-2021 Leukocyte esterase Auto test strip Ql (U) 2+ Negative [facility] Urobilinogen Auto test strip (U) [Mass/Vol]Ordered By: Davis Cervantes on 12-11-2021 Urobilinogen (U) [Mass/Vol] Normal mg/dL Normal [facility] pH Auto test strip (U)Ordere d By: Davis Cervantes on 12-11-2021 pH (U) 5.5 [pH] 5.0-9.0 [facility] ED NOTEon 11-27-2021 ED NOTE HNO ID: [id number] Author: Alyx Vergara RN Service: Nursing Author Type: Registered Nurse Type: ED Notes Filed: 11/26/2021 10:21 PM Note Text: Discharge instructions and follow up appointments reviewed. Pt verbalized understanding and states no concerns or questions at this time. VSS. Spoke with Asha about elevated BP. Stated that it's okay for pt to go and have him f/u with his PCP. Normal [facility] ED NOTE HNO ID: [id number] Author: Alyx Vergara RN Service: Nursing Author Type: Registered Nurse Type: ED Notes Filed: 11/26/2021 10:10 PM Note Text: Replaced hamilton bag with leg bag. Normal [facility] Bacteria Ur Culton 2 Bacteria identified Cx Nom (U) [id number] Abnormal [facility] Comment on above: Order Comment: Speci men Type: URINE SPECIMEN Ordering Facility: [facility] Address: [address] [place] [address] [place] [address] Result Comment: >=10 0,000 CFU/ml Klebsiella oxytoca Performed By: #### 6 30-4, 54059-9 #### [facility] CLIA [id number] [address] [place] [address] [place] Bacterial susceptibility maldonado el (Isol)on 11-26-2021 Ampicillin [Susc] Resistant [facility] Comment on above: Order Comment: Order ing Facility: [facility] Address: [address] [place] [address] Performed By: #### 6 30-4, 71388-4 #### [facility] CLIA [id number] [address] [place] [address] [place] Ampicillin+Sulbactam [Susc] 4 Susceptible Susceptible <=8 , Intermediate >8 , Resistant >16 [facility] Comment on above: Order Comment: Order ing Facility: [facility] Address: [address] [place] [address] Performed By: #### 6 30-4, 94262-7 #### [facility] CLIA [id number] [address] [place] [address] [place] ceFAZolin [Susc] <=4 Susceptible Susceptible 0-16 , Intermediate <0 or >16 , Resistant >16 [facility] Comment on above: Order Comment: Order ing Facility: [facility] Address: [address] [place] [address] Performed By: #### 6 30-4, 27482-3 #### [facility] CLIA [id number] [address] [place] [address] [place] Cefepime [Susc] <=1 Susceptible Susceptible <=2 , Intermediate >2 , Resistant >=16 [facility] Comment on above: Order Comment: Order ing Facility: [facility] Address: [address] [place] [address] Performed By: #### 6 30-4, 11884-4 #### [facility] CLIA [id number] [address] [place] [address] [place] cefTRIAXone [Susc] <=1 Susceptible Susceptib le <=1 , Intermediate >1 , Resistant >=4 [facility] Comment on above: Order Comment: Order ing Facility: [facility] Address: [address] [place] [address] Performed By: #### 6 30-4, 40146-6 #### [facility] CLIA [id number] [address] [place] [address] [place] Ciprofloxacin [Susc] <=0.25 Susceptible Suscept ible <0.5 , Intermediate >=.5 , Resistant >=1 [facility] Comment on above: Order Comment: Order ing Facility: [facility] Address: [address] [place] [address] Performed By: #### 6 30-4, 93309-6 #### [facility] CLIA [id number] [address] [place] [address] [place] Ertapenem ROCIO [Susc] <=0.5 Susceptible Suscept ible <=0.5 , Intermediate >.5 , Resistant >1 [facility] Comment on above: Order Comment: Order ing Facility: [facility] Address: [address] [place] [address] Performed By: #### 6 30-4, 87546-4 #### [facility] CLIA [id number] [address] [place] [address] [place] Gentamicin [Susc] <=1 Susceptible Susceptibl e <=4 , Intermediate >4 , Resistant >8 [facility] Comment on above: Order Comment: Order ing Facility: [facility] Address: [address] [place], [place] [address] Performed By: #### 6 30-4, 87885-7 #### [facility] CLIA [id number] [address] [place] [address] [place] Meropenem [Susc] <=0.25 Susceptible Susceptible <=1 , Intermediate >1 , Resistant >2 [facility] Comment on above: Order Comment: Order ing Facility: [facility] Address: [address] [place], [place] [address] Performed By: #### 6 30-4, 22289-2 #### [facility] CLIA [id number] [address] [place] [address] Nitrofurantoin [Susc] 32 Susceptible Suscep tible <=32 , Intermediate >32 , Resistant >64 [facility] Comment on above: Order Comment: Order ing Facility: [facility] Address: [address] [place], [place] [address] Performed By: #### 6 30-4, 76212-8 #### [facility] CLIA [id number] [address] [place] [address] [place] Piperacillin+Sulbactam ROCIO [Susc] <=4 Susceptible Susceptible <=16 , Intermediate >16 , Resistant >64 [facility] Comment on above: Order Comment: Order ing Facility: [facility] Address: [address] [place], [place] [address] Performed By: #### 6 30-4, 46708-8 #### [facility] CLIA [id number] [address] [place] [address] Tobramycin [Susc] <=1 Susceptible Susceptibl e <=4 , Intermediate >4 , Resistant >8 [facility] Comment on above: Order Comment: Order ing Facility: [facility] Address: [address] [place], [place] [address] Performed By: #### 6 30-4, 96446-6 #### [facility] CLIA [id number] [address] [place] [address] [place] Trimethoprim+Sulfametho xazole [Susc] <=20 Susceptible Susceptible <=40 , Resistant >40 [facility] Comment on above: Order Comment: Order ing Facility: [facility] Address: [address] [place], [place] [address] Performed By: #### 6 30-4, 84440-6 #### [facility] CLIA [id number] [address] [place], [place] [address] [address] [facility] ED NOTEon 11-26-2021 ED NOTE HNO ID: [id number] Author: Alyx Vergara RN Service: Nursing Author Type: Registered Nurse Type: ED Notes Filed: 11/26/2021 9:20 PM Note Text: Replaced hamilton per Asha BARR. Psychiatric ED NOTE HNO ID: [id number] Author: Alyx Vergara RN Service: Nursing Author Type: Registered Nurse Type: ED Notes Filed: 11/26/2021 9:01 PM Note Text: Was instructed to bladder scan pt due to pt having no urine in replaced bag. Bladder scanned 261 mL's the first time. Then 214 mL's the second time. Made Asha ESQUIVEL) aware. Psychiatric ED NOTE HNO ID: [id number] Author: Alyx Vergara RN Service: Nursing Author Type: Registered Nurse Type: ED Notes Filed: 11/26/2021 9:49 PM Note Text: Flushed 20 mL Hamilton. No leaking noted around tube. Psychiatric ED PROV NOTEon 11-26-2021 ED PROV NOTE HNO ID: [id number] Author: Asha Clinton PA-C Service: ? Author Type: Physician Recreation Facility Attendant Type: ED Provider Notes Filed: 11/26/2021 10:26 [...] and only urine culture in [facility] on 11/07 had no growth. Given dose of Keflex. Prescription for this E scripted to pharmacy. Patient discharged with Hamilton in place, leg bag instructions. Elevated blood pressure noted and improved during stay. No CP, sob, dizziness or any other complaints. Recommend f/u with pcp for recheck. All questions and concerns addre (more content not included)... Normal [facility] Urinalysis complete panel (U )on 11-26-2021 Bacteria LM.HPF (Urine sed) [#/Area] Many Abnormal None Seen [facility] Comment on above: Order Comment: Speci men Type: URINE SPECIMEN Ordering Facility: [facility] Address: [address] [place] [address] Performed By: #### 6 30-4, 65952-0 #### [facility] CLIA [id number] [address] [place] [address] [place] Bilirubin Ql (U) Negative Normal Negative [facility] Comment on above: Order Comment: Speci men Type: URINE SPECIMEN Ordering Facility: [facility] Address: [address] [place] [address] Performed By: #### 6 30-4, 88732-8 #### [facility] CLIA [id number] [address] [place] [address] [place] Clarity (Unsp spec) Cloudy Abnormal Clear [facility] Comment on above: Order Comment: Speci men Type: URINE SPECIMEN Ordering Facility: [facility] Address: [address] [place] [address] Performed By: #### 6 30-4, 15515-1 #### [facility] CLIA [id number] [address] [place] [address] [place] Color (U) Yellow Normal Yellow [facility] Comment on above: Order Comment: Speci men Type: URINE SPECIMEN Ordering Facility: [facility] Address: [address] [place] [address] Performed By: #### 6 30-4, 65647-0 #### [facility] CLIA [id number] [address] [place] [address] [place] Epithelial cells LM.HPF (Urine sed) [#/Area] Few Normal [facility] Comment on above: Order Comment: Speci men Type: URINE SPECIMEN Ordering Facility: [facility] Address: [address] [place], [place] [address] Performed By: #### 6 30-4, 94963-4 #### [facility] CLIA [id number] [address] [place] [address] [place] Glucose Test strip (U) [Mass/Vol] Negative Normal Negative [facility] Comment on above: Order Comment: Speci men Type: URINE SPECIMEN Ordering Facility: [facility] Address: [address] [place], [place] [address] Performed By: #### 6 30-4, 37779-4 #### [facility] CLIA [id number] [address] [place] [address] [place] Hemoglobin Ql (U) 2+ Abnormal Negative [facility] Comment on above: Order Comment: Speci men Type: URINE SPECIMEN Ordering Facility: [facility] Address: [address] [place], [place] [address] Performed By: #### 6 30-4, 65706-1 #### [facility] CLIA [id number] [address] [place] [address] [place] Ketones Ql (U) Negative Normal Negative [facility] Comment on above: Order Comment: Speci men Type: URINE SPECIMEN Ordering Facility: [facility] Address: [address] [place] [address] Performed By: #### 6 30-4, 84215-8 #### [facility] CLIA [id number] [address] [place] [address] [place] Leukocyte esterase Test strip Ql (U) 3+ Abnormal Negative [facility] Comment on above: Order Comment: Speci men Type: URINE SPECIMEN Ordering Facility: [facility] Address: [address] [place] [address] Performed By: #### 6 30-4, 23702-8 #### [facility] CLIA [id number] [address] [place] [address] [place] Nitrite Ql (U) Positive Abnormal Negative [facility] Comment on above: Order Comment: Speci men Type: URINE SPECIMEN Ordering Facility: [facility] Address: [address] [place] [address] Performed By: #### 6 30-4, 36226-8 #### [facility] CLIA [id number] [address] [place] [address] [place] pH (U) 5.5 [pH] Normal 5.0-8.0 [facility] Comment on above: Order Comment: Speci men Type: URINE SPECIMEN Ordering Facility: [facility] Address: [address] [place] [address] Performed By: #### 6 30-4, 52636-2 #### [facility] CLIA [id number] [address] [place] [address] [place] Protein (U) [Mass/Vol] Normal [facility] Comment on above: Order Comment: Speci men Type: URINE SPECIMEN Ordering Facility: [facility] Address: [address] [place] [address] Result Comment: Visi ble blood causes falsely elevated results for analyte Protein. Due to this limitation, Protein will not be reported for patients whose urine contains visible blood. Performed By: #### 6 30-4, 13446-7 #### [facility] CLIA [id number] [address] [place] [address] [place] RBC LM.HPF (Urine sed) [#/Area] 6-10 /HPF Abnormal 0-3 /HPF [facility] Comment on above: Order Comment: Speci men Type: URINE SPECIMEN Ordering Facility: [facility] Address: [address] [place] [address] Performed By: #### 6 30-4, 24619-8 #### [facility] CLIA [id number] [address] [place] [address] [place] Specific gravity (U) [Rel density] 1.009 Normal 1.005-1.030 [facility] Comment on above: Order Comment: Speci men Type: URINE SPECIMEN Ordering Facility: [facility] Address: [address] [place], [place] [address] Performed By: #### 6 30-4, 82309-5 #### [facility] CLIA [id number] [address] [place] [address] [place] Urobilinogen Ql (U) 0.2 EU/dL Normal 0.2-1.0 EU/dL [facility] Comment on above: Order Comment: Speci men Type: URINE SPECIMEN Ordering Facility: [facility] Address: [address] [place] [address] Performed By: #### 6 30-4, 15617-6 #### [facility] CLIA [id number] [address] [place] [address] [place] WBC LM.HPF (Urine sed) [#/Area] 11-25 /HPF Abnormal 0-5 /HPF [facility] Comment on above: Order Comment: Speci men Type: URINE SPECIMEN Ordering Facility: [facility] Address: [address] [place] [address] Performed By: #### 6 30-4, 80524-2 #### [facility] CLIA [id number] [address] [place] [address] [place] Covid-19 PCR (CVDTB)on SARS-CoV-2 (COVID-19) RNA LUANNE+probe Ql (Unsp spec) Not detected Normal NOT DETECTED [facility] Comment on above: Result Comment: This test is not yet approved or cleared by the [place] FDA. When there are no FDA-approved or cleared tests available, and other criteria are met, FDA can make tests available under an emergency access mechanism called an Emergency Use Authorization (EUA). The EUA for this test is supported by the [place] Supervisor of Health and Human Service's (HHS's) declaration [...] SARS-CoV-2. Performed By: #### C VDTBH #### [facility] [address] [place] [address] Dr. Juan Pablo Kaminski Bacteria Ur Culton 2 Bacteria identified Cx Nom (U) No growth (<1,000 CFU/ml) Normal [facility] Comment on above: Order Comment: Speci men Type: URINE SPECIMEN Ordering Facility: [facility] Address: [address] [place], [place] [address] Performed By: #### 6 30-4 #### [facility] CLIA [id number] [address] [place] [address] [place] Basic metabolic 2000 panelon 11-07-2021 Anion gap [Moles/Vol] 10 mmol/L Normal 9-18 [facility] Comment on above: Order Comment: Speci men Type: URINE SPECIMEN Ordering Facility: [facility] Address: [address] [place], [place] [address] Performed By: #### 6 30-4, 53372-7 #### [facility] CLIA [id number] [address] [place] [address] [place] Calcium [Mass/Vol] 9.1 mg/dL Normal 8.5-10.2 [facility] Comment on above: Order Comment: Speci men Type: URINE SPECIMEN Ordering Facility: [facility] Address: [address] [place], [place] [address] Performed By: #### 6 30-4, 89417-1 #### [facility] CLIA [id number] [address] [place] [address] [place] Chloride [Moles/Vol] 95 mmol/L Low 97-105 [facility] Comment on above: Order Comment: Speci men Type: URINE SPECIMEN Ordering Facility: [facility] Address: [address] [place], [place] [address] Performed By: #### 6 30-4, 99252-1 #### [facility] CLIA [id number] [address] [place] [address] [place] CO2 [Moles/Vol] 25 mmol/L Normal 22-30 [facility] Comment on above: Order Comment: Speci men Type: URINE SPECIMEN Ordering Facility: [facility] Address: [address] [place] [address] Performed By: #### 6 30-4, 60574-0 #### [facility] CLIA [id number] [address] [place] [address] [place] Creatinine [Mass/Vol] 1.25 mg/dL High 0.73-1.22 [facility] Comment on above: Order Comment: Speci men Type: URINE SPECIMEN Ordering Facility: [facility] Address: [address] [place] [address] Performed By: #### 6 30-4, 03974-7 #### [facility] CLIA [id number] [address] [place] [address] [place] ESTIMATED GLOMERULAR FILTRATION RATE 57 mL/min/1.73m??? Low >=60 [facility] Comment on above: Order Comment: Speci men Type: URINE SPECIMEN Ordering Facility: [facility] Address: [address] [place] [address] Result Comment: Annalise mated Glomerular Filtration Rate [...] actual GFR. Performed By: #### 6 30-4, 48529-6 #### [facility] CLIA [id number] [address] [place] [address] [place] Glucose [Mass/Vol] 129 mg/dL High 74-99 [facility] Comment on above: Order Comment: Speci men Type: URINE SPECIMEN Ordering Facility: [facility] Address: [address] [place] [address] Result Comment: The [place] [employer] Association (ADA) provides guidance for cutoff [...] Standards of Medical Care in Diabetes 2016, [place] [employer]. Diabetes Care. 2016.39(Suppl 1). Performed By: #### 6 30-4, 56637-1 #### [facility] CLIA [id number] [address] [place] [address] [place] Potassium [Moles/Vol] 4.6 mmol/L Normal 3.7-5.1 [facility] Comment on above: Order Comment: Speci men Type: URINE SPECIMEN Ordering Facility: [facility] Address: [address] [place] [address] Performed By: #### 6 30-4, 71194-4 #### [facility] CLIA [id number] [address] [place] [address] [place] Sodium [Moles/Vol] 130 mmol/L Low 136-144 [facility] Comment on above: Order Comment: Speci men Type: URINE SPECIMEN Ordering Facility: [facility] Address: [address] [place] [address] Performed By: #### 6 30-4, 73161-2 #### [facility] CLIA [id number] [address] [place] [address] [place] Urea nitrogen [Mass/Vol] 23 mg/dL Normal 9-24 [facility] Comment on above: Order Comment: Speci men Type: URINE SPECIMEN Ordering Facility: [facility] Address: [address] [place] [address] Performed By: #### 6 30-4, 12105-4 #### [facility] CLIA [id number] [address] [place] [address] [place] CBC W Auto Differential pane l (Bld)on 11-07-2021 Basophils/100 WBC (Bld) 0.0 % Normal [facility] Comment on above: Order Comment: Speci men Type: URINE SPECIMEN Ordering Facility: [facility] Address: [address] [place] [address] Performed By: #### 6 30-4, 96232-8 #### [facility] CLIA [id number] [address] [place] [address] [place] Differential cell count method Nom (Bld) Manual Normal [facility] Comment on above: Order Comment: Speci men Type: URINE SPECIMEN Ordering Facility: [facility] Address: [address] [place] [address] Performed By: #### 6 30-4, 44504-8 #### [facility] CLIA [id number] [address] [place] [address] [place] Eosinophils (Bld) [#/Vol] 0.10 10*3/uL Normal <0.46 [facility] Comment on above: Order Comment: Speci men Type: URINE SPECIMEN Ordering Facility: [facility] Address: [address] [place] [address] Performed By: #### 6 30-4, 94180-9 #### [facility] CLIA [id number] [address] [place] [address] [place] Eosinophils/100 WBC (Bld) 1.0 % Normal [facility] Comment on above: Order Comment: Speci men Type: URINE SPECIMEN Ordering Facility: [facility] Address: [address] [place], [place] [address] Performed By: #### 6 30-4, 59204-2 #### [facility] CLIA [id number] [address] [place] [address] [place] Erythrocyte distribution width (RBC) [Ratio] 11.5 % Normal 11.5-15.0 [facility] Comment on above: Order Comment: Speci men Type: URINE SPECIMEN Ordering Facility: [facility] Address: [address] [place] [address] Performed By: #### 6 30-4, 99226-3 #### [facility] CLIA [id number] [address] [place] [address] [place] Hematocrit (Bld) [Volume fraction] 39.8 % Normal 39.0-51.0 [facility] Comment on above: Order Comment: Speci men Type: URINE SPECIMEN Ordering Facility: [facility] Address: [address] [place] [address] Performed By: #### 6 30-4, 56247-8 #### [facility] CLIA [id number] [address] [place] [address] [place] Hemoglobin (Bld) [Mass/Vol] 13.4 g/dL Normal 13.0-17.0 [facility] Comment on above: Order Comment: Speci men Type: URINE SPECIMEN Ordering Facility: [facility] Address: [address] [place] [address] Performed By: #### 6 30-4, 45976-6 #### [facility] CLIA [id number] [address] [place] [address] [place] Lymphocytes (Bld) [#/Vol] 1.67 10*3/uL Normal 1.00-4.00 [facility] Comment on above: Order Comment: Speci men Type: URINE SPECIMEN Ordering Facility: [facility] Address: [address] [place] [address] Performed By: #### 6 30-4, 98345-3 #### [facility] CLIA [id number] [address] [place] [address] [place] Lymphocytes/100 WBC (Bld) 17.0 % Normal [facility] Comment on above: Order Comment: Speci men Type: URINE SPECIMEN Ordering Facility: [facility] Address: [address] [place], [place] [address] Performed By: #### 6 30-4, 40316-5 #### [facility] CLIA [id number] [address] [place] [address] [facility] MCH (RBC) [Entitic mass] 31.5 pg Normal 26.0-34.0 [facility] Comment on above: Order Comment: Speci men Type: URINE SPECIMEN Ordering Facility: [facility] Address: [address] [place], [place] [address] Performed By: #### 6 30-4, 32809-7 #### [facility] CLIA [id number] [address] [place] [address] [place] MCHC (RBC) [Mass/Vol] 33.7 g/dL Normal 30.5-36.0 [facility] Comment on above: Order Comment: Speci men Type: URINE SPECIMEN Ordering Facility: [facility] Address: [address] [place] [address] Performed By: #### 6 30-4, 68434-1 #### [facility] CLIA [id number] [address] [place] [address] [place] MCV (RBC) [Entitic vol] 93.4 fL Normal 80.0-100.0 [facility] Comment on above: Order Comment: Speci men Type: URINE SPECIMEN Ordering Facility: [facility] Address: [address] [place], [place] [address] Performed By: #### 6 30-4, 12399-9 #### [facility] CLIA [id number] [address] [place] [address] [place] Neutrophils (Bld) [#/Vol] 6.29 10*3/uL Normal 1.45-7.50 [facility] Comment on above: Order Comment: Speci men Type: URINE SPECIMEN Ordering Facility: [facility] Address: [address] [place], [place] [address] Performed By: #### 6 30-4, 81016-3 #### [facility] CLIA [id number] [address] [place] [address] [place] Neutrophils/100 WBC (Bld) 64.0 % Normal [facility] Comment on above: Order Comment: Speci men Type: URINE SPECIMEN Ordering Facility: [facility] Address: [address] [place] [address] Performed By: #### 6 30-4, 98660-8 #### [facility] CLIA [id number] [address] [place] [address] [place] Nucleated RBC/100 WBC (Bld) [Ratio] 0.0 /100 WBC Normal [facility] Comment on above: Order Comment: Speci men Type: URINE SPECIMEN Ordering Facility: [facility] Address: [address] [place] [address] Performed By: #### 6 30-4, 77256-9 #### [facility] CLIA [id number] [address] [place] [address] [place] PLATELET ESTIMATE Adequate Normal [facility] Comment on above: Order Comment: Speci men Type: URINE SPECIMEN Ordering Facility: [facility] Address: [address] [place], [place] [address] Performed By: #### 6 30-4, 69005-7 #### [facility] CLIA [id number] [address] [place] [address] [place] Platelet mean volume (Bld) [Entitic vol] 10.2 fL Normal 9.0-12.7 [facility] Comment on above: Order Comment: Speci men Type: URINE SPECIMEN Ordering Facility: [facility] Address: [address] [place] [address] Performed By: #### 6 30-4, 10042-7 #### [facility] CLIA [id number] [address] [place] [address] [place] Platelets (Bld) [#/Vol] 258 10*3/uL Normal 150-400 [facility] Comment on above: Order Comment: Speci men Type: URINE SPECIMEN Ordering Facility: [facility] Address: [address] [place], [place] [address] Performed By: #### 6 30-4, 27778-5 #### [facility] CLIA [id number] [address] [place] [address] [place] RBC (Bld) [#/Vol] 4.26 10*6/uL Normal 4.20-6.00 [facility] Comment on above: Order Comment: Speci men Type: URINE SPECIMEN Ordering Facility: [facility] Address: [address] [place] [address] Performed By: #### 6 30-4, 52589-2 #### [facility] CLIA [id number] [address] [place] [address] [place] RED CELL MORPH Reviewed: unremarkable Normal [facility] Comment on above: Order Comment: Speci men Type: URINE SPECIMEN Ordering Facility: [facility] Address: [address] [place], [place] [address] Performed By: #### 6 30-4, 71125-3 #### [facility] CLIA [id number] [address] [place] [address] [place] WAM - ABS BASO 0.00 k/uL Normal <0.11 [facility] Comment on above: Order Comment: Speci men Type: URINE SPECIMEN Ordering Facility: [facility] Address: [address] [place], [place] [address] Performed By: #### 6 30-4, 85293-3 #### [facility] CLIA [id number] [address] [place] [address] [place] WAM - ABS MONO 1.77 k/uL High <0.87 [facility] Comment on above: Order Comment: Speci men Type: URINE SPECIMEN Ordering Facility: [facility] Address: [address] [place], [place] [address] Performed By: #### 6 30-4, 79638-4 #### [facility] CLIA [id number] [address] [place] [address] [place] WAM - MONO% 18.0 % Normal [facility] Comment on above: Order Comment: Speci men Type: URINE SPECIMEN Ordering Facility: [facility] Address: [address] [place] [address] Performed By: #### 6 30-4, 13713-6 #### [facility] CLIA [id number] [address] [place] [address] [place] WAM ABSOLUTE NRBC <0.01 Normal <0.01 [facility] Comment on above: Order Comment: Speci men Type: URINE SPECIMEN Ordering Facility: [facility] Address: [address] [place] [address] Performed By: #### 6 30-4, 95267-7 #### [facility] CLIA [id number] [address] [place] [address] [place] WBC (Bld) [#/Vol] 9.83 10*3/uL Normal 3.70-11.00 [facility] Comment on above: Order Comment: Speci men Type: URINE SPECIMEN Ordering Facility: [facility] Address: [address] [place] [address] Performed By: #### 6 30-4, 48394-5 #### [facility] CLIA [id number] [address] [place] [address] [place] ED NOTEon 11-07-2021 ED NOTE HNO ID: [id number] Author: Yoshi Schumacher RN Service: ? Author Type: Registered Nurse Type: ED Notes Filed: 11/07/2021 5:14 PM Note Text: Pt provided with discharged instructions. Medications gone over and all questions answered. Pt. Left with steady gait with friend for a ride. Normal [facility] ED NOTE HNO ID: [id number] Author: Flaquita Donnelly RN Service: ? Author Type: Registered Nurse Type: ED Notes Filed: 11/07/2021 1:24 PM Note Text: Pt to ED for urinary retention. Pt had appointment with Urology on Wednesday, but was not able to be seen. Pt denies pain, but reports pressure in the bladder. Pt states he is not able to urinate completely and reports dribbling. [facility] ED PROV NOTEon 11-07-2021 ED PROV NOTE HNO ID: [id number] Author: Keely Gutierrez DO Service: Emergency Medicine [...] this Wednesday with his urologist out of [place] but was notified that his urologist had [...] Abnormal; Notable for the following components: Abs [place]ier 1.77 (*) <0.87 k/uL All other components [...] cysts one of which is mildly complex. Parts Counterperson: LIANA Transcribe Date/Time: Nov 07 2021 2:57P [...] at th (more content not included)... Normal [facility] US KIDNEY/BLADDERon 11-08-19 US KIDNEY/BLADDER * * *Final Report* * * DATE OF EXAM: Nov 07 2021 2:52PM [facility]55 - US KIDNEY/BLADDER / PROCEDURE REASON: [...] cysts one of which is mildly complex. Parts Counterperson: LIANA Transcribe Date/Time: Nov 07 2021 2:57P Dictated by : NEHEMIAS COLBERT MD This examination was interpreted and the report reviewed and electronically signed by: NEHEMIAS COLBERT MD on Nov 07 2021 3:09PM EST [id number] IACN Normal [facility] Urinalysis complete panel (U )on 11-07-2021 Bilirubin Ql (U) Negative Normal Negative [facility] Comment on above: Order Comment: Speci men Type: URINE SPECIMEN Ordering Facility: [facility] Address: [address] [place] [address] Performed By: #### 6 30-4, 61990-3 #### [facility] CLIA [id number] [address] [place] [address] [place] Clarity (Unsp spec) Clear Normal Clear [facility] Comment on above: Order Comment: Speci men Type: URINE SPECIMEN Ordering Facility: [facility] Address: [address] [place] [address] Performed By: #### 6 30-4, 70179-2 #### [facility] CLIA [id number] [address] [place] [address] [place] Color (U) Yellow Normal Yellow [facility] Comment on above: Order Comment: Speci men Type: URINE SPECIMEN Ordering Facility: [facility] Address: [address] [place] [address] Performed By: #### 6 30-4, 77934-2 #### [facility] CLIA [id number] [address] [place] [address] [place] Epithelial cells LM.HPF (Urine sed) [#/Area] Few Normal [facility] Comment on above: Order Comment: Speci men Type: URINE SPECIMEN Ordering Facility: [facility] Address: [address] [place] [address] Performed By: #### 6 30-4, 67838-7 #### [facility] CLIA [id number] [address] [place] Glucose Test strip (U) [Mass/Vol] Negative Normal Negative [facility] Comment on above: Order Comment: Speci men Type: URINE SPECIMEN Ordering Facility: [facility] Address: [address] [place] [address] Performed By: #### 6 30-4, 55554-9 #### [facility] CLIA [id number] [address] [place] [address] [place] Hemoglobin Ql (U) Negative Normal [facility] Comment on above: Order Comment: Speci men Type: URINE SPECIMEN Ordering Facility: [facility] Address: [address] [place] [address] Performed By: #### 6 30-4, 49384-6 #### [facility] CLIA [id number] [address] [place] [address] [place] Hyaline casts (Urine sed) [#/Area] 1-3 /LPF Abnormal 0 /LPF [facility] Comment on above: Order Comment: Speci men Type: URINE SPECIMEN Ordering Facility: [facility] Address: [address] [place] [address] Performed By: #### 6 30-4, 33182-4 #### [facility] CLIA [id number] [address] [place] [address] [place] Ketones Ql (U) Trace Abnormal Negative [facility] Comment on above: Order Comment: Speci men Type: URINE SPECIMEN Ordering Facility: [facility] Address: [address] [place], [place] [address] Performed By: #### 6 30-4, 24418-8 #### [facility] CLIA [id number] [address] [place] [address] [place] Leukocyte esterase Test strip Ql (U) Negative Normal Negative [facility] Comment on above: Order Comment: Speci men Type: URINE SPECIMEN Ordering Facility: [facility] Address: [address] [place] [address] Performed By: #### 6 30-4, 77517-1 #### [facility] CLIA [id number] [address] [place] [address] [place] Nitrite Ql (U) Negative Normal Negative [facility] Comment on above: Order Comment: Speci men Type: URINE SPECIMEN Ordering Facility: [facility] Address: [address] [place] [address] Performed By: #### 6 30-4, 07904-7 #### [facility] CLIA [id number] [address] [place] [address] [place] pH (U) 5.5 [pH] Normal 5.0-8.0 [facility] Comment on above: Order Comment: Speci men Type: URINE SPECIMEN Ordering Facility: [facility] Address: [address] [place] [address] Performed By: #### 6 30-4, 80021-6 #### [facility] CLIA [id number] [address] [place] [address] [place] Protein (U) [Mass/Vol] Negative Normal Negative [facility] Comment on above: Order Comment: Speci men Type: URINE SPECIMEN Ordering Facility: [facility] Address: [address] [place] [address] Performed By: #### 6 30-4, 69235-7 #### [facility] CLIA [id number] [address] [place] [address] [place] RBC LM.HPF (Urine sed) [#/Area] 0-3 /HPF Normal 0-3 /HPF [facility] Comment on above: Order Comment: Speci men Type: URINE SPECIMEN Ordering Facility: [facility] Address: [address] [place] [address] Performed By: #### 6 30-4, 84238-5 #### [facility] CLIA [id number] [address] [place] [address] [place] Specific gravity (U) [Rel density] 1.024 Normal 1.005-1.030 [facility] Comment on above: Order Comment: Speci men Type: URINE SPECIMEN Ordering Facility: [facility] Address: [address] [place] [address] Performed By: #### 6 30-4, 24069-2 #### [facility] CLIA [id number] [address] [place] [address] [place] Urobilinogen Ql (U) 0.2 EU/dL Normal 0.2-1.0 EU/dL [facility] Comment on above: Order Comment: Speci men Type: URINE SPECIMEN Ordering Facility: [facility] Address: [address] [place] [address] Performed By: #### 6 30-4, 75132-1 #### [facility] CLIA [id number] [address] [place] [address] [place] WBC LM.HPF (Urine sed) [#/Area] 0-5 /HPF Normal 0-5 /HPF [facility] Comment on above: Order Comment: Speci men Type: URINE SPECIMEN Ordering Facility: [facility] Address: [address] [place] [address] Performed By: #### 6 30-4, 34703-8 #### [facility] CLIA [id number] [address] [place] [address] [place] MICROALBUMIN URINEon 022 Albumin, Urine 5.6 ug/mL Normal Not Estab. [facility] Comment on above: Performed By: #### M ALBLC #### [facility] [address] [place] [address] Dr. Juan Pablo Kaminski US CAROTID ART [...] SAMY TORRES Date: 2021-10-23 17:19 Normal [facility] CBC AUTO DIFFon 10-21-2021 BASO # 0.0 103/ul Normal 0.0-0.1 [facility] Comment on above: Performed By: #### A 1C #### [facility] [address] [place] [address] Dr. Juan Pablo Kaminski Basophils/100 WBC (Bld) 0.5 % Normal 0.2-2.0 [facility] Comment on above: Performed By: #### A 1C #### [facility] [address] [place] [address] Dr. Juan Pablo Kaminski EO # 0.3 103/ul Normal 0.0-0.7 [facility] Comment on above: Performed By: #### A 1C #### [facility] [address] [place] [address] Dr. Juan Pablo Kaminski Eosinophils/100 WBC (Bld) 3.6 % Normal 0.9-7.0 [facility] Comment on above: Performed By: #### A 1C #### [facility] [address] [place] [address] Dr. Juan Pablo Kaminski Erythrocyte distribution width (RBC) [Ratio] 11.1 % Normal 11.0-15.0 [facility] Comment on above: Performed By: #### A 1C #### [facility] [address] [place] [address] Dr. Juan Pablo Kaminski Hematocrit (Bld) [Volume fraction] 41.8 % Critically low 42.0-54.0 [facility] Comment on above: Performed By: #### A 1C #### [facility] [address] [place] [address] Dr. Juan Pablo Kaminski Hemoglobin (Bld) [Mass/Vol] 14.1 g/dL Normal 14.0-18.0 [facility] Comment on above: Performed By: #### A 1C #### [facility] [address] [place] [address] Dr. Juan Pablo Kaminski IG # 0.03 10e3/ul Normal 0.00-0.03 [facility] Comment on above: Performed By: #### A 1C #### [facility] [address] [place] [address] Dr. Juan Pablo Kaminski IG % 0.4 % Normal 0.0-0.5 [facility] Comment on above: Performed By: #### A 1C #### [facility] [address] [place] [address] Dr. Juan Pablo Kaminski LYMPH # 2.2 103/ul Normal 1.2-3.8 [facility] Comment on above: Performed By: #### A 1C #### [facility] [address] [place] [address] Dr. Juan Pablo Kaminski Lymphocytes/100 WBC (Bld) 29.4 % Normal 20.5-60.0 [facility] Comment on above: Performed By: #### A 1C #### [facility] [address] [place] [address] Dr. Juan Pablo Kaminski MANUAL DIFF REQ NO Normal [facility] Comment on above: Performed By: #### A 1C #### [facility] [address] [place] [address] Dr. Juan Pablo Kaminski MCH (RBC) [Entitic mass] 31.8 pg Normal 25.9-34.0 [facility] Comment on above: Performed By: #### A 1C #### [facility] [address] [place] [address] Dr. Juan Pablo Kaminski MCHC (RBC) [Mass/Vol] 33.7 g/dL Normal 29.9-35.2 [facility] Comment on above: Performed By: #### A 1C #### [facility] [address] [place] [address] Dr. Juan Pablo Kaminski MCV (RBC) [Entitic vol] 94.1 fL Critically high 80.0-94 .0 [facility] Comment on above: Performed By: #### A 1C #### [facility] [address] [place] [address] Dr. Juan Pablo Kaminski MONO # 0.9 103/ul Critically high 0.3-0.8 [facility] Comment on above: Performed By: #### A 1C #### [facility] [address] [place] [address] Dr. Juan Pablo Kaminski Monocytes/100 WBC (Bld) 11.7 % Normal 1.7-12.0 [facility] Comment on above: Performed By: #### A 1C #### [facility] [address] [place] [address] Dr. Juan Pablo Kaminski NEUT # 4.0 103/ul Normal 1.4-6.5 [facility] Comment on above: Performed By: #### A 1C #### [facility] [address] [place] [address] Dr. Juan Pablo Kaminski Neutrophils/100 WBC (Bld) 54.4 % Normal 43.0-75.0 [facility] Comment on above: Performed By: #### A 1C #### [facility] [address] [place] [address] Dr. Juan Pablo Kaminski Platelet mean volume (Bld) [Entitic vol] 8.6 fL Critically low 9.5-13.5 [facility] Comment on above: Performed By: #### A 1C #### [facility] [address] [place] [address] Dr. Juan Pablo Kaminski PLT 231 103/ul Normal 150-450 [facility] Comment on above: Performed By: #### A 1C #### [facility] [address] [place] [address] Dr. Juan Pablo Kaminski RBC 4.44 106/ul Critically low 4.70-6.10 [facility] Comment on above: Performed By: #### A 1C #### [facility] [address] [address] [address] Juan Pablo Kaminski WBC 7.3 103/ul Normal 4.0-11.0 [facility] Comment on above: Performed By: #### A 1C #### [facility] [address] [address] [address] Juan Pablo Kaminski DIRECT LDLon 10-21-2021 Cholesterol in LDL [Mass/Vol] 106 mg/dL Normal [facility] Comment on above: Performed By: #### A LT, BMP, DLDL #### [facility] [address] [address] [address] Juan Pablo Kaminski DLDL NORMAL SEE BELOW Normal [facility] Comment on above: Result Comment: <100 mg/dl OPTIMAL 100 - 129 mg/dl NEAR OR ABOVE OPTIMAL 130 - 159 mg/dl BORDERLINE HIGH 160 - 189 mg/dl HIGH >190 mg/dl VERY HIGH Performed By: #### A LT, BMP, DLDL #### [facility] [address] [address] [address] Juan Pablo Kaminski GLYCOHEMOGLOBIN A1Con 2021 ADA RECOMMENDATION SEE BELOW Normal [facility] Comment on above: Result Comment: ADA RECOMMENDED LIMIT 4.0 - 6.0 ADA THERAPEUTIC TARGET < 7.0 ACTION SUGGESTED > 7.0 Performed By: #### A 1C #### [facility] [address] [place] [address] Dr. Juan Pablo Kaminski Glucose [Mass/Vol] 120 mg/dL Normal [facility] Comment on above: Performed By: #### A 1C #### [facility] [address] [address] [address] Juan Pablo Kaminski HbA1c (Bld) [Mass fraction] 5.8 % Normal 4.5-6.2 [facility] Comment on above: Performed By: #### A 1C #### [facility] [address] [place] [address] Dr. Juan Pablo Kaminski PROF CHEM 8 (BAS METB)on Anion gap [Moles/Vol] 12.7 mmol/L Normal [facility] Comment on above: Performed By: #### A 1C #### [facility] [address] [place] [address] Dr. Juan Pablo Kaminski Calcium [Mass/Vol] 8.7 mg/dL Normal 8.5-10.1 [facility] Comment on above: Performed By: #### A 1C #### [facility] [address] [place] [address] Dr. Juan Pablo Kaminski Chloride [Moles/Vol] 98 mmol/L Normal 98-107 [facility] Comment on above: Performed By: #### A 1C #### [facility] [address] [place] [address] Dr. Juan Pablo Kaminski CO2 [Moles/Vol] 28.0 mmol/L Normal 21.0-32.0 [facility] Comment on above: Performed By: #### A 1C #### [facility] [address] [place] [address] Dr. Juan Pablo Kaminski Creatinine [Mass/Vol] 1.07 mg/dL Normal 0.70-1.30 [facility] Comment on above: Performed By: #### A 1C #### [facility] [address] [place] [address] Dr. Juan Pablo Kaminski EGFR-AF GUATEMALAN >60 Normal >=60 [facility] Comment on above: Performed By: #### A 1C #### [facility] [address] [place] [address] Dr. Juan Pablo Kaminski EGFR-NON AF GUATEMALAN >60 Normal >=60 [facility] Comment on above: Performed By: #### A 1C #### [facility] [address] [place] [address] Dr. Juan Pablo Kaminski Glucose [Mass/Vol] 133 mg/dL Critically high 74-106 [facility] Comment on above: Performed By: #### A 1C #### [facility] [address] [place] [address] Dr. Juan Pablo Kaminski Potassium [Moles/Vol] 4.7 mmol/L Normal 3.5-5.1 [facility] Comment on above: Performed By: #### A 1C #### [facility] [address] [address] [address] Juan Pablo Kaminski Sodium [Moles/Vol] 134 mmol/L Critically low 136-145 [facility] Comment on above: Performed By: #### A 1C #### [facility] [address] [address] [address] Juan Pablo Kaminski Urea nitrogen [Mass/Vol] 17.0 mg/dL Normal 7.0-18.0 [facility] Comment on above: Performed By: #### A 1C #### [facility] [address] [place] [address] Dr. Juan Pablo Kaminski Urea nitrogen/Creatinine [Mass ratio] 15.9 mg/mg Normal [facility] Comment on above: Performed By: #### A 1C #### [facility] [address] [place] [address] Dr. Juan Pablo Kaminski SGPTon 10-21-2021 ALT [Catalytic activity/Vol] 31 U/L Normal 16-63 [facility] Comment on above: Performed By: #### A 1C #### [facility] [address] [place] [address] Dr. Juan Pablo Kaminski GLYCOHEMOGLOBIN A1Con 2021 ADA RECOMMENDATION SEE BELOW Normal [facility] Comment on above: Result Comment: ADA RECOMMENDED LIMIT 4.0 - 6.0 ADA THERAPEUTIC TARGET < 7.0 ACTION SUGGESTED > 7.0 Performed By: #### A 1C #### [facility] [address] [place] [address] Dr. Juan Pablo Kaminski Glucose [Mass/Vol] 131 mg/dL Normal [facility] Comment on above: Performed By: #### A 1C #### [facility] [address] [place] [address] Dr. Juan Pablo Kaminski HbA1c (Bld) [Mass fraction] 6.2 % Normal 4.5-6.2 [facility] Comment on above: Performed By: #### A 1C #### [facility] [address] [place] [address] Dr. Juan Pablo Kaminski Vital Signs Date Time Vital Sign Value Performing Clinician Faci lity 12-28-2023 08:30-0400 Body height 190.5 cm [facility] 12-28-2023 08:30-0400 Body mass index (BMI) [Ratio] 27.8 kg/m2 [facility] 12-28-2023 08:30-0400 Body weight 100.92 kg [facility] 12-28-2023 08:30-0400 Diastolic blood pressure 66 mm[Hg] [facility] 12-28-2023 08:30-0400 Heart rate 71 /min [facility] 12-28-2023 08:30-0400 Respiratory rate 12 /min [facility] 12-28-2023 08:30-0400 Systolic blood pressure 121 mm[Hg] [facility] 09-23-2023 08:35-0400 Body height 190.5 cm DO Campbell Ball Work Phone: [facility] 09-23-2023 08:35-0400 Body mass index (BMI) [Ratio] 27.8 kg/m2 DO Campbell Ball Work Phone: [facility] 09-23-2023 08:35-0400 Body weight 100.86 kg DO Campbell Ball Work Phone: [facility] 09-23-2023 08:35-0400 Diastolic blood pressure 68 mm[Hg] DO Campbell Ball Work Phone: [facility] 09-23-2023 08:35-0400 Heart rate 70 /min DO Campbell Ball Work Phone: [facility] 09-23-2023 08:35-0400 Respiratory rate 12 /min DO Campbell Ball Work Phone: [facility] 09-23-2023 08:35-0400 Systolic blood pressure 141 mm[Hg] DO Campbell Ball Work Phone: [facility] 08-04-2023 08:59-0400 Body mass index (BMI) [Ratio] 27.5 kg/m2 Leticia Milian APRN.COMMERCIAL PROPERTY ADMINISTRATOR Work Phone: [facility] 08-04-2023 08:59-0400 Body weight 99.79 kg Leticia Rukhsana BELLING MACHINE OPERATOR.COMMERCIAL PROPERTY ADMINISTRATOR Work Phone: [facility] 08-04-2023 08:59-0400 Diastolic blood pressure 56 mm[Hg] Leticia Rukhsana BELLING MACHINE OPERATOR.COMMERCIAL PROPERTY ADMINISTRATOR Work Phone: [facility] 08-04-2023 08:59-0400 Heart rate 65 /min Leticia Kaneville BELLING MACHINE OPERATOR.COMMERCIAL PROPERTY ADMINISTRATOR Work Phone: [facility] 08-04-2023 08:59-0400 Systolic blood pressure 130 mm[Hg] Leticia Kaneville BELLING MACHINE OPERATOR.COMMERCIAL PROPERTY ADMINISTRATOR Work Phone: [facility] 07-09-2023 13:38-0400 Body height 190.5 cm DO Campbell Ball Work Phone: [facility] 07-09-2023 13:38-0400 Body mass index (BMI) [Ratio] 28 kg/m2 DO Campbell Ball Work Phone: [facility] 07-09-2023 13:38-0400 Body weight 101.6 kg DO Campbell Ball Work Phone: [facility] 07-09-2023 13:38-0400 Diastolic blood pressure 60 mm[Hg] DO Campbell Ball Work Phone: [facility] 07-09-2023 13:38-0400 Heart rate 78 /min DO Campbell Ball Work Phone: [facility] 07-09-2023 13:38-0400 Systolic blood pressure 143 mm[Hg] DO Campbell Ball Work Phone: [facility] 06-23-2023 09:16-0400 Body height 190.5 cm DO Campbell Ball Work Phone: [facility] 06-23-2023 09:16-0400 Body mass index (BMI) [Ratio] 28 kg/m2 DO Campbell Ball Work Phone: [facility] 06-23-2023 09:16-0400 Body weight 101.6 kg DO Campbell Ball Work Phone: [facility] 06-23-2023 09:16-0400 Diastolic blood pressure 64 mm[Hg] DO Campbell Ball Work Phone: [facility] 06-23-2023 09:16-0400 Heart rate 69 /min DO Campbell Ball Work Phone: [facility] 06-23-2023 09:16-0400 Respiratory rate 16 /min DO Campbell Ball Work Phone: [facility] 06-23-2023 09:16-0400 Systolic blood pressure 147 mm[Hg] DO Campbell Ball Work Phone: [facility] 05-21-2023 10:53-0500 Body height 190.5 cm DO Campbell Ball Work Phone: [facility] 05-21-2023 10:53-0500 Body mass index (BMI) [Ratio] 27 kg/m2 DO Campbell Ball Work Phone: [facility] 05-21-2023 10:53-0500 Body weight 98.03 kg DO Campbell Ball Work Phone: [facility] 05-21-2023 10:53-0500 Diastolic blood pressure 77 mm[Hg] DO Campbell Ball Work Phone: [facility] 05-21-2023 10:53-0500 Heart rate 76 /min DO Campbell Ball Work Phone: [facility] 05-21-2023 10:53-0500 Respiratory rate 12 /min DO Campbell Ball Work Phone: [facility] 05-21-2023 10:53-0500 Systolic blood pressure 133 mm[Hg] DO Campbell Ball Work Phone: [facility] 05-15-2023 13:10-0500 Body temperature 98.6 [degF] DO Campbell Ball Work Phone: [facility] 05-15-2023 13:10-0500 Diastolic blood pressure 90 mm[Hg] DO Campbell Ball Work Phone: [facility] 05-15-2023 13:10-0500 Heart rate 90 /min DO Campbell Ball Work Phone: [facility] 05-15-2023 13:10-0500 Respiratory rate 18 /min DO Campbell Ball Work Phone: [facility] 05-15-2023 13:10-0500 SaO2% (BldA) [Mass fraction] 97 % DO Campbell Ball Work Phone: [facility] 05-15-2023 13:10-0500 Systolic blood pressure 181 mm[Hg] DO Campbell Ball Work Phone: [facility] 05-15-2023 10:56-0500 Body height 190.5 cm DO Campbell Ball Work Phone: [facility] 05-15-2023 10:56-0500 Body weight 99.9 kg DO Campbell Ball Work Phone: [facility] 04-21-2023 14:30-0500 Body height 190.5 cm Campbell Ball Other [facility] Other 04-21-2023 14:30-0500 Body mass index (BMI) [Ratio] 28.07 kg/m2 Campbell Ball Other [facility] Other 04-21-2023 14:30-0500 Body weight 101.88 kg Campbell Ball Other [employer] Other 04-21-2023 14:30-0500 Diastolic blood pressure 68 mm[Hg] Campbell Ball Other [employer] Other 04-21-2023 14:30-0500 Respiratory rate 12 /min Campbell Ball Other [employer] Other 04-21-2023 14:30-0500 Systolic blood pressure 129 mm[Hg] Campbell Ball Other [employer] Other 03-17-2023 10:30-0500 Body height 190.5 cm Campbell Ball Other [employer] Other 03-17-2023 10:30-0500 Body mass index (BMI) [Ratio] 27.55 kg/m2 Campbell Ball Other [employer] Other 03-17-2023 10:30-0500 Body weight 99.97 kg Campbell Ball Other [employer] Other 03-17-2023 10:30-0500 Diastolic blood pressure 67 mm[Hg] Campbell Ball Other [employer] Other 03-17-2023 10:30-0500 Respiratory rate 12 /min Campbell Ball Other [employer] Other 03-17-2023 10:30-0500 Systolic blood pressure 159 mm[Hg] Campbell Ball Other [employer] Other 02-23-2023 09:30-0500 Body height 190.5 cm Campbell Ball Other [employer] Other 02-23-2023 09:30-0500 Body mass index (BMI) [Ratio] 28.02 kg/m2 Campbell Ball Other [employer] Other 02-23-2023 09:30-0500 Body weight 101.7 kg Campbell Ball Other [employer] Other 02-23-2023 09:30-0500 Diastolic blood pressure 78 mm[Hg] Campbell Ball Other [employer] Other 02-23-2023 09:30-0500 Respiratory rate 12 /min Campbell Ball Other [employer] Other 02-23-2023 09:30-0500 Systolic blood pressure 157 mm[Hg] Campbell Ball Other [employer] Other 02-19-2023 10:45-0500 Body height 190.5 cm Campbell Ball Other [employer] Other 02-19-2023 10:45-0500 Body mass index (BMI) [Ratio] 28 kg/m2 Campbell Ball Other [employer] Other 02-19-2023 10:45-0500 Body weight 101.61 kg Campbell Ball Other [employer] Other 02-19-2023 10:45-0500 Diastolic blood pressure 72 mm[Hg] Campbell Ball Other [employer] Other 02-19-2023 10:45-0500 Respiratory rate 12 /min Campbell Ball Other [employer] Other 02-19-2023 10:45-0500 Systolic blood pressure 144 mm[Hg] Campbell Ball Other [employer] Other 02-02-2023 13:37-0500 Body weight 102.06 kg Leticia Rukhsana BELLING MACHINE OPERATOR.COMMERCIAL PROPERTY ADMINISTRATOR Work Phone: [facility] 02-02-2023 13:37-0500 Diastolic blood pressure 70 mm[Hg] Leticia Rukhsana BELLING MACHINE OPERATOR.COMMERCIAL PROPERTY ADMINISTRATOR Work Phone: [facility] 02-02-2023 13:37-0500 Heart rate 65 /min Leticia Rukhsana BELLING MACHINE OPERATOR.COMMERCIAL PROPERTY ADMINISTRATOR Work Phone: [facility] 02-02-2023 13:37-0500 Systolic blood pressure 146 mm[Hg] Leticia Rukhsana BELLING MACHINE OPERATOR.COMMERCIAL PROPERTY ADMINISTRATOR Work Phone: [facility] 09-22-2022 12:15-0400 Body height 190.5 cm Campbell Ball Other [employer] Other 09-22-2022 12:15-0400 Diastolic blood pressure 82 mm[Hg] Campbell Ball Other [employer] Other 09-22-2022 12:15-0400 Systolic blood pressure 135 mm[Hg] Campbell Ball Other [employer] Other 09-17-2022 09:00-0400 Body height 190.5 cm Campbell Ball Other [employer] Other 09-17-2022 09:00-0400 Body mass index (BMI) [Ratio] 27.57 kg/m2 Campbell Ball Other [employer] Other 09-17-2022 09:00-0400 Body weight 100.06 kg Campbell Ball Other [employer] Other 09-17-2022 09:00-0400 Diastolic blood pressure 62 mm[Hg] Campbell Ball Other [employer] Other 09-17-2022 09:00-0400 Respiratory rate 12 /min Campbell Ball Other [employer] Other 09-17-2022 09:00-0400 Systolic blood pressure 128 mm[Hg] Campbell Ball Other [employer] Other 06-18-2022 10:00-0400 Body height 190.5 cm Campbell Ball Other [employer] Other 06-18-2022 10:00-0400 Body mass index (BMI) [Ratio] 28.02 kg/m2 Campbell Ball Other [employer] Other 06-18-2022 10:00-0400 Body weight 101.7 kg Campbell Ball Other [employer] Other 06-18-2022 10:00-0400 Diastolic blood pressure 62 mm[Hg] Campbell Ball Other [employer] Other 06-18-2022 10:00-0400 Respiratory rate 12 /min Campbell Ball Other [employer] Other 06-18-2022 10:00-0400 Systolic blood pressure 119 mm[Hg] Campbell Ball Other [employer] Other 04-08-2022 12:00-0500 Body height 190.5 cm Campbell Ball Other [employer] Other 04-08-2022 12:00-0500 Body mass index (BMI) [Ratio] 27.82 kg/m2 Campbell Ball Other [employer] Other 04-08-2022 12:00-0500 Body temperature 97.1 [degF] Campbell Ball Other [employer] Other 04-08-2022 12:00-0500 Body weight 100.97 kg Campbell Ball Other [employer] Other 04-08-2022 12:00-0500 Diastolic blood pressure 68 mm[Hg] Campbell Ball Other [employer] Other 04-08-2022 12:00-0500 SaO2% (BldA) [Mass fraction] 97 % Campbell Ball Other [employer] Other 04-08-2022 12:00-0500 Systolic blood pressure 124 mm[Hg] Campbell Ball Other [employer] Other 03-20-2022 10:00-0500 Body height 190.5 cm Campbell Ball Other [employer] Other 03-20-2022 10:00-0500 Body mass index (BMI) [Ratio] 27.95 kg/m2 Campbell Ball Other [employer] Other 03-20-2022 10:00-0500 Body weight 101.42 kg Campbell Ball Other [employer] Other 03-20-2022 10:00-0500 Diastolic blood pressure 60 mm[Hg] Campbell Ball Other [employer] Other 03-20-2022 10:00-0500 Respiratory rate 12 /min Campbell Ball Other [employer] Other 03-20-2022 10:00-0500 Systolic blood pressure 112 mm[Hg] Campbell Ball Other [employer] Other 01-08-2022 08:47-0400 Body weight 97.52 kg Leonard Dugan MD Work Phone: [facility] 01-08-2022 08:47-0400 Diastolic blood pressure 61 mm[Hg] Leonard Dugan MD Work Phone: [facility] 01-08-2022 08:47-0400 Heart rate 72 /min Leonard Dugan MD Work Phone: [facility] 01-08-2022 08:47-0400 Systolic blood pressure 139 mm[Hg] Leonard Dugan MD Work Phone: [facility] 12-26-2021 08:32-0400 Body temperature 98 [degF] DO Campbell Ball Work Phone: [facility] 12-26-2021 08:32-0400 Diastolic blood pressure 62 mm[Hg] DO Campbell Ball Work Phone: [facility] 12-26-2021 08:32-0400 Heart rate 75 /min DO Campbell Ball Work Phone: [facility] 12-26-2021 08:32-0400 Respiratory rate 18 /min DO Campbell Ball Work Phone: [facility] 12-26-2021 08:32-0400 SaO2% (BldA) [Mass fraction] 98 % DO Campbell Ball Work Phone: [facility] 12-26-2021 08:32-0400 Systolic blood pressure 146 mm[Hg] DO Campbell Ball Work Phone: [facility] 12-17-2021 16:22-0400 Body height 190.5 cm DO Campbell Ball Work Phone: [facility] 12-17-2021 16:22-0400 Body weight 97.52 kg DO Campbell Ball Work Phone: [facility] 12-17-2021 16:19-0400 Body temperature 98.4 [degF] DO Campbell Ball Work Phone: [facility] 12-17-2021 16:19-0400 Diastolic blood pressure 63 mm[Hg] DO Campbell Ball Work Phone: [facility] 12-17-2021 16:19-0400 Heart rate 66 /min DO Campbell Ball Work Phone: [facility] 12-17-2021 16:19-0400 Respiratory rate 16 /min DO Campbell Ball Work Phone: [facility] 12-17-2021 16:19-0400 SaO2% (BldA) [Mass fraction] 96 % DO Campbell Ball Work Phone: [facility] 12-17-2021 16:19-0400 Systolic blood pressure 135 mm[Hg] DO Campbell Ball Work Phone: [facility] 12-16-2021 14:41-0400 Diastolic blood pressure 62 mm[Hg] Leonard Kailee MD Work Phone: [facility] 12-16-2021 14:41-0400 Heart rate 69 /min Leonard Dugan MD Work Phone: [facility] 12-16-2021 14:41-0400 Respiratory rate 16 /min Leonard Dugan MD Work Phone: [facility] 12-16-2021 14:41-0400 Systolic blood pressure 141 mm[Hg] Leonard Dugan MD Work Phone: [facility] 12-11-2021 18:25-0400 Body temperature 97.5 [degF] DO Campbell Ball Work Phone: [facility] 12-11-2021 18:25-0400 Diastolic blood pressure 88 mm[Hg] DO Campbell Ball Work Phone: [facility] 12-11-2021 18:25-0400 Heart rate 67 /min DO Campbell Ball Work Phone: [facility] 12-11-2021 18:25-0400 Respiratory rate 20 /min DO Campbell Ball Work Phone: [facility] 12-11-2021 18:25-0400 SaO2% (BldA) [Mass fraction] 99 % DO Campbell Ball Work Phone: [facility] 12-11-2021 18:25-0400 Systolic blood pressure 175 mm[Hg] DO Campbell Ball Work Phone: [facility] 12-11-2021 16:57-0400 Body height 190.5 cm DO Campbell Ball Work Phone: [facility] 12-11-2021 16:57-0400 Body weight 98.5 kg DO Campbell Ball Work Phone: [facility] 12-10-2021 10:50-0400 Body weight 95.25 kg Nurse Emelia Work Phone: [facility] 12-10-2021 10:50-0400 Diastolic blood pressure 80 mm[Hg] Nurse Emelia Work Phone: [facility] 12-10-2021 10:50-0400 Heart rate 59 /min Nurse Emelia Work Phone: [facility] 12-10-2021 10:50-0400 Systolic blood pressure 152 mm[Hg] Nurse Emelia Work Phone: [facility] 12-09-2021 14:27-0400 Body weight 95.25 kg [facility] Work Phone: [facility] 12-09-2021 14:27-0400 Diastolic blood pressure 68 mm[Hg] [facility] Work Phone: [facility] 12-09-2021 14:27-0400 Heart rate 70 /min [facility] Work Phone: [facility] 12-09-2021 14:27-0400 Systolic blood pressure 164 mm[Hg] [facility] Work Phone: [facility] 11-12-2021 11:23-0400 Body weight 96.16 kg Leonard Dugan MD Work Phone: [facility] 11-12-2021 11:23-0400 Diastolic blood pressure 73 mm[Hg] Leonard Dugan MD Work Phone: [facility] 11-12-2021 11:23-0400 Heart rate 56 /min Leonard Dugan MD Work Phone: [facility] 11-12-2021 11:23-0400 Systolic blood pressure 162 mm[Hg] Leonard Dugan MD Work Phone: [facility] Encounters Encounter Date Encounter Type Care Provider Facility Start: 12-28-2023 End: 12-28-2023 ambulatory [facility] Work Phone: Start: 12-28-2023 End: 12-28-2023 Patient encounter procedure [facility] Work Phone: Start: 12-25-2023 Patient encounter procedure [facility] Start: 12-17-2023 End: 12-17-2023 Bamboo flowsheet Sterling Zamudio DO Work Phone: [facility] Start: 12-17-2023 End: 12-17-2023 Bamboo flowsheet Sterling Zamudio DO Work Phone: [facility] Start: 12-17-2023 End: 12-17-2023 Clinisync Result Encounter Sterling Sanderson Charlottebrandon DO Work Phone: [facility] Department Unsolicited Start: 12-17-2023 End: 12-17-2023 ambulatory Sterling Zamudio Facility:[facility] Start: 12-17-2023 End: 12-17-2023 Patient encounter procedure Sterling Zamudio [facility] Start: 12-17-2023 End: 12-17-2023 ambulatory STERLING Kin ZAMUDIO Not Available Start: 12-15-2023 End: 12-15-2023 ambulatory [facility] Work Phone: Start: 12-15-2023 End: 12-15-2023 Patient encounter procedure [facility] Work Phone: Start: 09-23-2023 End: 09-23-2023 ambulatory DO Campbell Naranjo Work Phone: [facility] Work Phone: Start: 09-23-2023 End: 09-23-2023 Patient encounter procedure DO Campbell Ball Work Phone: [facility] Work Phone: Start: 08-04-2023 End: 08-04-2023 ambulatory LETICIA MILIAN Facility:[facility] Start: 08-04-2023 Non-patient / Non-visit DO Lenin rfank Quentin Work Phone: [facility] Work Phone: Start: 08-04-2023 End: 08-04-2023 Patient encounter procedure Leticia Milian APRN.COMMERCIAL PROPERTY ADMINISTRATOR Work Phone: Urology Comment on above: Benign prostatic hyp erplasia, unspecified whether lower urinary tract symptoms present (Primary Dx); Recurrent UTI; Nocturia Start: 07-26-2023 End: 07-26-2023 ambulatory CAMPBELL Dakota BALL Facility:[facility] Start: 07-26-2023 Non-patient / Non-visit DO Lenin frank Ball Work Phone: [facility] Work Phone: Start: 07-22-2023 End: 07-22-2023 ambulatory Jhon Sanderson [facility] Facility:[facility] Start: 07-22-2023 End: 07-22-2023 ambulatory DO Campbell Ball Work Phone: [facility] Work Phone: Start: 07-22-2023 End: 07-22-2023 Departed Referred DO Campbell Ball Work Phone: [facility] Start: 07-22-2023 Non-patient / Non-visit DO Lenin Naranjo Work Phone: [facility] Work Phone: Start: 07-12-2023 End: 07-12-2023 ambulatory Jhon Sanderson [facility] Facility:[facility] Start: 07-12-2023 End: 07-12-2023 ambulatory DO Campbell Ball Work Phone: [facility] Work Phone: Start: 07-12-2023 End: 07-12-2023 Departed Referred DO Campbell Ball Work Phone: [facility] Start: 07-09-2023 End: 07-09-2023 ambulatory DO Campbell Ball Work Phone: [facility] Work Phone: Start: 07-09-2023 End: 07-09-2023 Patient encounter procedure DO Campbell Ball Work Phone: [facility] Work Phone: Start: 07-06-2023 Non-patient / Non-visit DO Lenin monika Ball Work Phone: [facility] Work Phone: Start: 06-23-2023 End: 06-23-2023 ambulatory DO Campbell Ball Work Phone: [facility] Work Phone: Start: 06-23-2023 End: 06-23-2023 Patient encounter procedure DO Campbell Ball Work Phone: [facility] Work Phone: Start: 05-31-2023 Non-patient / Non-visit DO Lenin frank Ball Work Phone: [facility] Work Phone: Start: 05-21-2023 End: 05-21-2023 Patient encounter procedure DO Campbell Ball Work Phone: [facility] Work Phone: Start: 05-15-2023 End: 05-15-2023 Emergency department patient visit Low Kaylin Carter Facility:[facility] Start: 05-15-2023 End: 05-15-2023 Emergency department patient visit DO Campbell Ball Work Phone: [facility] Work Phone: Start: 05-03-2023 Non-patient / Non-visit DO Lenin haleyin Ball Work Phone: [facility] Work Phone: Start: 04-30-2023 Non-patient / Non-visit DO Lenin monika Ball Work Phone: [facility] [employer] Work Phone: Start: 04-21-2023 End: 04-21-2023 ambulatory Campbell Ball Other [employer] Other Start: 04-21-2023 Transitional care manage srvc 14 day discharge Campbell Naranjo [facility] Start: 04-19-2023 End: 04-19-2023 ambulatory Campbell Naranjo Other [employer] Other Start: 04-19-2023 Telephone encounter Campbell SINGH [facility] Start: 04-15-2023 End: 04-15-2023 ambulatory Campbell Naranjo Other [employer] Other Start: 04-15-2023 Telephone encounter Campbell SINGH [facility] Start: 03-17-2023 End: 03-17-2023 ambulatory Campbell Naranjo Other [employer] Other Start: 03-17-2023 Transitional care manage srvc 14 day discharge Campbell Naranjo [facility] Start: 03-04-2023 End: 03-04-2023 ambulatory Campbell Naranjo Other [employer] Other Start: 03-04-2023 Telephone encounter Campbell SINGH [facility] Start: 02-23-2023 End: 02-23-2023 ambulatory Campbell Naranjo Other [employer] Other Start: 02-23-2023 Office outpatient vi sit 15 minutes Campbell Naranjo [facility] Start: 02-23-2023 Telephone encounter Campbell SINGH [facility] Start: 02-19-2023 End: 02-19-2023 ambulatory Campbell Naranjo Other [employer] Other Start: 02-19-2023 Office outpatient vi sit 15 minutes Campbell Naranjo [facility] Start: 02-02-2023 End: 02-02-2023 ambulatory CAMPBELL NARANJO Facility:[facility] Start: 02-02-2023 End: 02-02-2023 Patient encounter procedure Leticia Milian APRN.[facility] Work Phone: Urology Comment on above: BPH with obstruction /lower urinary tract symptoms (Primary Dx); Recurrent UTI; Weak urinary stream Start: 01-19-2023 End: 01-19-2023 ambulatory CAMPBELL NARANJO Facility:[facility] Start: 01-13-2023 End: 01-13-2023 Emergency department patient visit Low Carter Facility:[facility] Start: 01-13-2023 End: 01-13-2023 Emergency department patient visit DO Campbell Naranjo Work Phone: [facility] Work Phone: Start: 12-21-2022 End: 12-21-2022 ambulatory Campbell Naranjo Other [employer] Other Start: 12-21-2022 Telephone encounter Campbell SINGH [facility] Start: 09-22-2022 End: 09-22-2022 ambulatory Campbell Naranjo Other [employer] Other Start: 09-22-2022 Office outpatient vi sit 15 minutes Campbell Naranjo [facility] Start: 09-20-2022 End: 09-20-2022 ambulatory Cornell Baptiste Other [employer] Other Start: 09-20-2022 Encounter by [email or web address] raissa Baptiste [facility] Start: 09-17-2022 End: 09-17-2022 ambulatory Campbell Naranjo Other [employer] Other Start: 09-17-2022 Office outpatient vi sit 25 minutes Campbell Naranjo [facility] Start: 09-15-2022 End: 09-15-2022 ambulatory Cornell Baptiste Other [employer] Other Start: 09-15-2022 Encounter by [email or web address] raissa Baptiste [facility] Start: 06-25-2022 End: 06-26-[address] CAMPBELL NARANJO Facility: Start: 06-18-2022 End: 06-18-2022 ambulatory Campbell Naranjo Other [employer] Other Start: 06-18-2022 Office outpatient vi sit 25 minutes Campbell Naranjo [facility] Start: 06-02-2022 End: 06-03-[address] CAMPBELL NARANJO Facility:[facility] Start: 04-08-2022 End: 04-08-2022 ambulatory Campbell Naranjo Other [employer] Other Start: 04-08-2022 Office outpatient vi sit 15 minutes Campbell Naranjo [facility] Start: 03-24-2022 End: 03-24-2022 ambulatory Campbell Naranjo Other [employer] Other Start: 03-24-2022 Telephone encounter Campbell Naranjo [facility] Start: 03-20-2022 Office outpatient vi sit 25 minutes Campbell Quentin [facility] Start: 03-20-2022 End: 03-21-[address] CAMPBELL NARANJO [employer] Other Start: 01-08-2022 End: 01-08-2022 Patient encounter procedure Leonard Dugan MD Work Phone: Urology Comment on above: Chronic epididymitis (Primary Dx); Left hydrocele; Weak urinary stream; BPH without obstruction/lower urinary tract symptoms; Epididymitis Start: 01-07-2022 Refill Leonard Dugan MD Work Phone: Urology Comment on above: Refill Request Start: 12-26-2021 End: 12-26-2021 ambulatory DO Campbell Naranjo Work Phone: [facility] Work Phone: Start: 12-26-2021 End: 12-26-2021 Discharged Recurring DO Campbell Naranjo Work Phone: [facility] Start: 12-25-2021 End: 12-26-[address] CAMPBELL NARANJO Facility:[facility] Start: 12-17-2021 End: 12-17-2021 Emergency department patient visit DO Campbell Naranjo Work Phone: [facility] Start: 12-16-2021 End: 12-16-2021 Patient encounter procedure Leonard Dugan MD Work Phone: Urology Comment on above: Retention of urine ( Primary Dx); Flaccid bladder Start: 12-15-2021 Telephone encounter Leticia trentnanci COMMERCIAL PROPERTY ADMINISTRATOR Work Phone: Urology Comment on above: Patient Update Start: 12-11-2021 End: 12-11-2021 Emergency department patient visit DO Campbell Naranjo Work Phone: [facility] Start: 12-11-2021 Telephone encounter Leonard Dugan MD Work Phone: Urology Comment on above: Patient Update Start: 12-10-2021 End: 12-10-2021 Nursing evaluation of patient and report Nurse [facility] Work Phone: Urology Comment on above: Urinary tract infect ion without hematuria, site unspecified (Primary Dx); Feeling of incomplete bladder emptying; Benign prostatic hyperplasia with urinary retention Start: 12-09-2021 End: 12-09-2021 Nursing evaluation of patient and report [facility] Work Phone: Urology Comment on above: Urinary frequency (P rimary Dx); Urinary urgency; Urinary straining; Feeling of incomplete bladder emptying Start: 12-08-2021 Telephone encounter Leonard Dugan MD Work Phone: Urology Comment on above: Appointment (Resched ule catheter change) Start: 11-26-2021 End: 11-27-2021 Emergency department patient visit CAMPBELL NARANJO Facility:[facility] Start: 11-21-2021 Telephone encounter Leonard [...] End: 11-07-2021 Emergency department patient visit RAN Yeison NABEEL LEACH Facility:[facility] Start: 10-23-2021 End: 10-24-[address] CAMPBELL NARANJO Facility:[facility] Start: 10-21-2021 End: 10-22-[address] CAMPBELL NARANJO Facility:[facility] Start: 10-20-2021 Adult health examination Campbell Naranjo Other [employer] Other Start: 07-17-2021 End: 07-18-[address] CAMPBELL NARANJO Facility:[facility] Start: 01-09-2020 End: 01-09-2020 Pre-procedure evaluation check Campbell Naranjo Other [employer] Other Procedures Date Procedure Procedure Detail Performing Clinician Start: 12-17-2023 End: 12-17-2023 Computerized ophthalmic imaging optic nerve Sterling Zamudio DO Work Phone: Start: 12-17-2023 [facility] PLATELET COUNT Sterling Zamudio [...] unspecified type Start: 07-26-2023 Urinalysis DO Campbell Quentin Work Phone: Start: 07-26-2023 Urine culture DO Campbell Quentin Work Phone: Start: 05-15-2023 Duplex scan of lower limb veins DO Campbell Naranjo Work Phone: Start: 10-14-2021 Depression screening Campbell Naranjo Other Start: 10-03-2019 Transurethral prostatectomy Sterling Zamudio Start: 09-20-2019 Transurethral prostatectomy Sterling Zamudio Start: 07-27-2019 Cystourethroscopy with dilation of urethral stricture Sterling Lizz Start: 03-23-2016 Screening for malignant neoplasm of colon Campbell Naranjo Other Start: 01-30-2015 Screening for malignant neoplasm of prostate Campbell Naranjo Other Appendectomy Sterling Lizz Extraction of cataract Marysergei Zamudio Tonsillectomy Sterling haji Urine culture DO Campbell Ba ll Work Phone: Urine culture DO Campbell Ba ll Work Phone: Urine culture DO Campbell Ba ll Work Phone: Plan of Treatment Date Care Activity Detail Author Start: 07-25-2026 Diabetes Screening [facility] Start: 03-22-2024 End: 03-22-2024 Patient encounter procedure 03/22/2024 11:15 AM EST Office Visit [facility] [address] [place] [address] Sterling Zamudio DO [address] [place] [address] [facility] Start: 02-08-2024 End: 02-08-2024 Patient encounter procedure 02/08/2024 8:30 AM EST Office Visit Urology [address] [place], [place] [id number] Leticia Milian, BELLING MACHINE OPERATOR.COMMERCIAL PROPERTY ADMINISTRATOR [address] [place] [address] Return in about 6 months (around 02/04/2024) for rto for evalution of BPH w obs/luts, UTI AUA, PVR . Urology Comment on above: Return in about 6 mo nths (around 02/04/2024) for rto for evalution of BPH w obs/luts, UTI AUA, PVR . Start: 12-17-2023 End: 12-17-2023 Patient encounter procedure 12/17/2023 9:30 AM EDT Office Visit [facility] [address] [place] [id number] Sterling Zamudio, [address] [place] [address] Arrived [facility] Comment on above: Arrived Start: 11-14-2023 Influenza vaccination Influenza Vacc ine (#1) [facility] Start: 03-15-2023 Advance Directive Discussion Advance Directive Discussion [facility] Start: 03-15-2023 Behavioral Health Screening Behavioral Health Screening [facility] Start: 12-28-2022 Urine microalbumin profile DTaP,Tdap,Td Vaccine (3 - Tdap) [facility] Start: 11-13-2022 Covid-19 Vaccine ( season) Covid-19 Vaccine ( season) [facility] Start: 03-15-2022 Advance Directive Discussion Advance Directive Discussion [facility] Start: 03-15-2022 Depression Assessment Depression Ass essment [facility] Start: 01-08-2022 End: 03-10-2022 Bacteria identified in Urine by Culture URINE CULTURE Microbiology Routine Left hydrocele Chronic epididymitis Weak urinary stream BPH without obstruction/lower urinary tract symptoms Epididymitis Expected: 01/08/2022 (Approximate), Expires: 03/10/2022 [facility] Work Phone: Comment on above: Expected: 01/08/2022 (Approximate), Expires: 03/10/2022 Start: 01-08-2022 End: 03-10-2022 URINALYSIS, REFLEX MICROSCOPIC URINALYSIS, REFLEX MICROSCOPIC Lab Routine Left hydrocele Chronic epididymitis Weak urinary stream BPH without obstruction/lower urinary tract symptoms Epididymitis Expected: 01/08/2022 (Approximate), Expires: 03/10/2022 [facility] Work Phone: Comment on above: Expected: 01/08/2022 (Approximate), Expires: 03/10/2022 Start: 12-10-2021 End: 02-09-2022 Bacteria identified in Urine by Culture URINE CULTURE Microbiology Routine Urinary tract infection without hematuria, site unspecified Expected: 12/10/2021, Expires: 02/09/2022 [facility] Work Phone: Comment on above: Expected: 12/10/2021 , Expires: 02/09/2022 Start: 11-13-2021 Influenza vaccination INFLUENZA (#1) [facility] Start: 11-12-2021 URODYNAMICS URODYNAMICS Pr ocedures Routine 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 Expected: 11/12/2021 (Approximate) [facility] Work Phone: Comment on above: Expected: 11/12/2021 (Approximate) Start: 08-11-2021 COVID-19 VACCINE (5 - Booster for Pfizer series) COVID-19 VACCINE (5 - Booster for Pfizer series) [facility] Start: 03-15-2021 ADVANCE DIRECTIVE DISCUSSION ADVANCE DIRECTIVE DISCUSSION [facility] Start: 03-15-2021 DEPRESSION ASSESSMENT DEPRESSION ASS ESSMENT [facility] Start: 05-26-2012 3 comp foot exam completed DIABETIC FOOT EXAM [facility] Start: 05-17-2012 Pneumococcal Vaccine : 65+ Years (2 of 2 - PCV) Pneumococcal Vaccine: 65+ Years (2 of 2 - PCV) [facility] Start: 1998 Hepatitis B Vaccine (1 of 3 - Risk 3-dose series) Hepatitis B Vaccine (1 of 3 - Risk 3-dose series) [facility] Start: 1998 RSV Vaccine (1 - 1-d ose 60+ series) RSV Vaccine (1 - 1-dose 60+ series) [facility] Start: 1988 SHINGRIX VACCINE (1 of 2) SHINGRIX VACCINE (1 of 2) [facility] Start: 1957 Urine microalbumin profile DTAP,TDAP,TD (1 - Tdap) [facility] Start: 1956 Hepatitis B surface antibody level LDL CHOLESTEROL [facility] Start: 1948 Hepatitis B screening URINE ALBUMIN:CREATININE RATIO [facility] Start: 1948 Hepatitis C antibody , confirmatory test DILATED RETINAL EXAM [facility] Start: 1944 PNEUMOCOCCAL: 65+ (1 - PCV) PNEUMOCOCCAL: 65+ (1 - PCV) [facility] Start: 1943 Hemoglobin A1c/Hemoglobin.total in Blood HBA1C [facility] Bacteria identified in Urine by Culture [facility] End: 02-02-2024 Bacteria identified in Urine by Culture URINE CULTURE Microbiology Routine Recurrent UTI 5 Occurrences starting 02/02/2023 until 02/02/2024 [facility] Work Phone: Comment on above: 5 Occurrences starti ng 02/02/2023 until 02/02/2024 Comprehensive metabo lic 2000 panel - Serum or Plasma [facility] Patient Education [facility] Work Phone: Patient referral [facility] Work Phone: End: 01-14-2024 Urinalysis complete panel - Urine URINALYSIS, WITH MICROSCOPIC Lab Routine Recurrent UTI 5 Occurrences starting 02/02/2023 until 01/14/2024 [facility] Work Phone: Comment on above: 5 Occurrences starti ng 02/02/2023 until 01/14/2024 US Heart Transthoracic [facility] Immunizations Immunization Date Immunization Notes Care Provider Jens eid 12-15-2023 influenza, high dose seasonal, preservative-free [facility] 12-01-2022 influenza virus vaccine, unspecified formulation DO Campbell Naranjo Work Phone: [facility] 12-01-2022 influenza, high dose seasonal, preservative-free Campbell Naranjo Other [employer] Other 12-19-2021 influenza virus vaccine, split virus (incl. purified surface antigen) Cambpell Naranjo Other [facility] Other 12-19-2021 influenza virus vaccine, unspecified formulation DO Campbell Naranjo Work Phone: [facility] 12-10-2020 influenza virus vaccine, split virus (incl. purified surface antigen) Campbell Naranjo Other [facility] Other 12-10-2020 influenza virus vaccine, unspecified formulation DO Campbell Naranjo Work Phone: [facility] 01-09-2020 influenza virus vaccine, split virus (incl. purified surface antigen) Campbell Naranjo Other [facility] Other 01-09-2020 influenza virus vaccine, unspecified formulation DO Campbell Naranjo Work Phone: [facility] 01-23-2019 influenza virus vaccine, live, attenuated, for intranasal use Sterling Zamudio [facility] 01-14-2018 influenza virus vaccine, split virus (incl. purified surface antigen) Campbell Naranjo Other [facility] Other 01-14-2018 influenza virus vaccine, unspecified formulation DO Campbell Naranjo Work Phone: [facility] 12-30-2016 influenza virus vaccine, split virus (incl. purified surface antigen) Campbell Naranjo Other [facility] Other 12-30-2016 influenza virus vaccine, unspecified formulation DO Campbell Naranjo Work Phone: [facility] 03-16-2016 influenza virus vaccine, split virus (incl. purified surface antigen) Campbell Naranjo Other [facility] Other 03-16-2016 influenza virus vaccine, unspecified formulation DO Campbell Naranjo Work Phone: [facility] 05-01-2015 pneumococcal conjuga te vaccine, 13 valent Campbell Naranjo Other [facility] 05-01-2015 pneumococcal Conjuga te, unspecified formulation; Translations: [Need for prophylactic vaccination against Streptococcus pneumoniae (pneumococcus)] Campbell Naranjo Other [facility] [employer] Other 12-28-2012 tetanus and diphther ia toxoids, adsorbed, preservative free, for adult use (5 Lf of tetanus toxoid and 2 Lf of diphtheria toxoid) Campbell Naranjo Other [facility] 01-28-2012 diphtheria, tetanus toxoids and acellular pertussis vaccine, unspecified formulation Campbell Naranjo Other [facility] 01-20-2012 pneumococcal polysaccharide vaccine, 23 valent Campbell Naranjo Other [facility] 05-18-2011 pneumococcal polysaccharide vaccine, 23 valent Campbell Naranjo Other [facility] Payers Date Payer Category Payer Self-pay 2016 Unknown [place] [id number] 2016-Present [phone] [address] [place] [address] Indemnity [id number] 2003 Medicare [id number] 1959 Medicare [id number] 1959 Medicare [id number] 1938 Unknown [id number] 3 1938 Unknown [id number] [id number] 3 1938 Unknown [id number] [id number] 3 1938 Unknown [id number] [id number] 3 1938 Unknown [id number] [id number] 3 1938 Unknown [id number] [id number] 3 1938 Unknown [id number] [id number] 3 1938 Unknown [id number] [id number] 3 1938 Unknown [id number] [id number] 59 1938 Unknown [id number] [id number] 7 Medicare Medicare Outpatient [id number] [id number] Unknown [facility] [id number] Unknown [id number] 1 Unknown [id number] [id number] 1 Unknown [id number] 1 Unknown [id number] 1 Social History Date Type Detail Facility Start: 10-24-2009 End: 12-16-2021 Tobacco smoking status NHIS Ex-smoker [facility] End: 03-15-1971 History of tobacco use Current smoker [facility] End: 03-15-1971 History of tobacco use Cigarette Smoker [facility] Start: 10-24-2009 End: 07-28-2022 Cigarettes smoked current (pack per day) - Reported 1.5 [facility] Start: 11-07-2021 End: 12-17-2023 Alcohol intake Current drinker of alcohol (finding) [facility] Start: 1940 Sex Assigned At Not on file [facility] Start: 10-28-2021 End: 01-08-2022 Exposure to SARS-CoV-2 (event) Not sure [facility] Start: 12-11-2021 End: 05-15-2023 Tobacco smoking status NHIS Never smoked tobacco (finding) [facility] Start: 1940 Sex Assigned At Male [facility] Start: 12-16-2021 End: 03-29-2023 Tobacco use and exposure Smokeless tobacco non-user [facility] Start: 12-16-2021 End: 07-28-2022 Sex Assigned At [facility] National Score (1-10 0), lower number is lower risk 61 [facility] Start: 03-29-2023 Alcohol Comment 2-3 times a week. [facility] Start: 12-16-2023 Sexual orientation Heterosexual (finding) [facility] Medical Equipment Procedure Code Equipment Code Equipment Origin al Text Equipment Identifier Dates [id number], [id number] Start: 10-23-2021 End: 08-04-2023 Comment on above: TEST HOME BLOOD SUGA R ONCE A DAY USE TO TEST HOME BLO OD SUGAR ONCE A DAY Clinical Notes 11-10-2021 to 12-17-2023 Sterling Zamudio, - 12/17/2023 9:30 AM EDLeticia Blackwell, JOAQUIN.COMMERCIAL PROPERTY ADMINISTRATOR - 08/04/2023 8:58 AM EDT Note Date & Type Note Facility 12-17-2023 Note Right Eye Quality was good. Scan locations included subfoveal. Progression has been stable. Findings include normal observations. Left Eye Quality was good. Scan locations included subfoveal. Progression has been stable. Findings include normal observations. Notes Good scan with normal appearance [facility] 12-17-2023 History of Present illness Narrative Images [...] scrubs were recommended. documented in this encounter [facility] 08-04-2023 Note HNO ID: [id number] Author: LETICIA MILIAN APRN.COMMERCIAL PROPERTY ADMINISTRATOR Service: ? Author Type: Nurse Practitioner Type: Progress Notes Filed: 08/04/2023 09:23 Note Text: Norberto Washington [address] [place] [id number] HISTORY OF PRESENT ILLNESS: Seen 02/02/23 for [...] finding today 08/04/23) Pt is presently on fdc antibiotic due to infection in toes that went to bone Stated that urinary symptoms have resolved with treatment. PVR=36 ML UA 07/26/23=trace leuk esterase Culture 07/26/23=<10,000 CFU/ml Lactose positive gram negative bacilli Abnormal A1C 07/26/23=6.4 Location: BPH w obs/luts, UTI Pain Character: none Severity Scale: see AUA score, see lab Duration: BPH w obs/luts, UTI [facility] SYMPTOMS SCORE. 1. INCOMPLETE EMPTYING [...] order for urin (more content not included)... [facility] 08-04-2023 History of Present illness Narrative Nroberto Washington [address] [facility] [address] HISTORY OF PRESENT ILLNESS: Seen 02/02/23 for [...] finding today 08/04/23) Pt is presently on fdc antibiotic due to infection in toes that went to bone Stated that urinary symptoms have resolved with treatment. PVR=36 ML UA 07/26/23=trace leuk esterase Culture 07/26/23=<10,000 CFU/ml Lactose positive gram negative bacilli Abnormal A1C 07/26/23=6.4 Location: BPH w obs/luts, UTI Pain Character: none Severity Scale: see AUA score, see lab Duration: BPH w obs/luts, UTI [facility] SYMPTOMS SCORE. 1. INCOMPLETE EMPTYING [...] Making Level: 4 - Moderate Leticia Milian APRN.COMMERCIAL PROPERTY ADMINISTRATOR documented in this encounter [facility] 04-21-2023 Evaluation note Encounter Date [...] - recommend Picc line and IV antibiotics [employer] Other 01-03-2024 Evaluation note* Encounter Date Diagnosis [...] to restart Amlodipine. Continue PAUL for now. [employer] Other 12-12-2023 Evaluation note* Encounter Date Diagnosis [...] and inserts to prevent callus formation.Fall precautions. [employer] Other 12-08-2023 Evaluation note* Encounter Date Diagnosis [...] ulcers. Recommend routine foot care w/ Podiatry [employer] Other 11-21-2023 NoteHNO ID: [id number] Author: Leticia Milian APRN.COMMERCIAL PROPERTY ADMINISTRATOR Service: ? Author Type: Nurse Practitioner Type: Progress Notes Filed: 02/02/2023 2:13 PM Note Text: Norberto Mccoy Sin [address] [facility] [address] HISTORY OF PRESENT ILLNESS: Seen 07/28/22 for [...] see lab Duration: BPH w obs/luts, UTI [facility] SYMPTOMS SCORE. 1. INCOMPLETE EMPTYING [...] only if s (more content not included)... [facility]11-21-2023 Miscellaneous Notes* Addendum Note - Leticia Milian APRN.CNP - 02/02/2023 2:16 PM ESTAddended by: LETICIA MILIAN on: 02/02/2023 02:16 PM Modules accepted: [facility] History of Present illness Narrative* Leticia Milian APRN.ENIO - 02/02/2023 1:40 PM EST Norberto Washington [address] [facility] [address] HISTORY OF PRESENT ILLNESS: Seen 07/28/22 for [...] see lab Duration: BPH w obs/luts, UTI [facility] SYMPTOMS SCORE. 1. INCOMPLETE EMPTYING [...] Making Level: 4 - Moderate Leticia Milian APRN.COMMERCIAL PROPERTY ADMINISTRATOR documented in this encounterCincinnati [facility]07-[facility] Evaluation note* Encounter Date Diagnosis [...] w/ acute infection Requires no additional treatment [employer] Other 07-06-2023 Evaluation note* Encounter Date Diagnosis [...] exercise for 30 minutes, 3-5 times weekly. [facility] Other 04-06-2023 Evaluation note* Encounter Date Diagnosis [...] reviewed at the office visit. A1C: due 06 Apr, 2023 Type 2 diabetes mellitus with diabetic polyneuropathy, [...] w/ antibiotics and treatment of urinary retention [facility] Other 03-21-2023 NotePROCEDURE: XR FOOT LT MIN [...] Electronically authenticated by: SAMY TORRES Date: 2022-06-02 15:48[facility]03-21-2023 NotePROCEDURE: XR FOOT LT MIN 3 [...] Electronically authenticated by: SAMY TORRES Date: 2022-06-02 15:48[facility]01-25-2023 Evaluation note* Encounter Date Diagnosis Assessment [...] lesion was treated w/ cryotherapy w/o complications [facility] Other 01-06-2023 Evaluation note* Encounter Date Diagnosis [...] Mar, Hesitancy of micturition (ICD-10 - R39.11) [facility] Other 10-27-2022 History of Present illness Narrative* Zuleika Hackett - 01/08/2022 8:20 AM EDT Norberto Washington [address] [address] Mr. Washington presents with chief complaints of: Enlarged L testicle. ED 11/07/21: PVR 179 cc, refused a catheter, scheduled to undergo a cystoscopy in [place] but was cancelled due to his urologist [...] epididymitis Hydroceles: None Spermatoceles: None Varicoceles: None [facility] SYMPTOMS SCORE. Date 01/08/2022 1. 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 Leonard Dugan M.D. documented in this encounterCincinnati [facility]10-05-2022 Hospital Discharge instructions Additional Instructions Continue taking Flomax as prescribed Avoid drinking any fluids several hours before bed Call your urologist tomorrow for a follow-up appointment Return if you are unable to urinate, develop blood in your urine, abdominal pain, [facility]vers[facility] Work Phone: [phone] 564-419110-04-2022 History of Present illness Narrative* Leonard Dugan MD - 12/16/2021 2:51 PM EDT Norberto Washington [address] [place] [id number] HISTORY OF PRESENT ILLNESS: ED 11/07/21: PVR 179 cc, refused a catheter, scheduled to undergo a cystoscopy in [place] but was cancelled due to his urologist [...] Otherwise, intermittent catheterization. Agreed indwelling catheter 18 prydeinig. Flomax will not work, no prostate tissue [...] Moderate Leonard Dugan MD documented in this encounterCincinnati [facility]10-03-2022 Miscellaneous Notes* Telephone Encounter - Valente Bell LPN - 12/15/2021 3:58 PM EDT Called and spoke to patient regarding message below. Patient states understanding to information provided. No further action required at this time. * Telephone Encounter - Leticia Milian APRN.CNP - 12/15/2021 10:13 AM EDT Please call and confirm that pt received Transmitt message to start new script sent for antibiotic. Thanks Leticia MONDRAGON documented in this encounterCincinnati [facility]09-29-2022 Miscellaneous Notes* Telephone Encounter - [...] be draining normally now. documented in this encounterCincinnati [facility]09-28-2022 Nurse Note* Stephanie Kaur RN [...] hyperplasia with urinary retention documented in this encounterCincinnati [facility]09-27-2022 History of Present illness Narrative* Leonard Dugan MD - 12/09/2021 5:05 PM EDT [facility] PHYSICIAN [...] contractility Leonard Dugan MD documented in this encounterCincinnati Children'[facility]09-27-2022 Nurse Note* Stehpanie Kaur RN - 12/09/2021 3:57 PM EDT [facility] URODYNAMICS [...] of incomplete bladder emptying documented in this encounterCincinnati Children'[facility] Center09-26-2022 Miscellaneous Notes* Telephone Encounter - Stephanie Kaur RN - 12/08/2021 4:11 PM EDT LM for patient to reschedule catheter change for tomorrow. Last changed 11/26/21 in ED. Will be due for change on 12/23/21. Stephanie Kaur R.N. documented in this encounterCincinnati Children'[facility]09-12-2022 Miscellaneous Notes* Telephone Encounter - [...] has been busy with his spouse at [facility] having to care for her needs and hadn't called earlier when it first started on Wednesday. He was hoping it would clear up but it has not, urine is between [place] tint & Brown and he does see small clots. Patient does have pain at the end of his Penis slight swelling noted (he has been applying Neosporin) Denies difficulty with urine draining into [place] bag, he does not have back pain Please advise documented in this encounterCincinnati Children'[facility]08-31-2022 Nurse Note* Stephanie Kaur RN [...] Education Session: None Instruction Provided To: Patient [employer] Worker Present: not applicable Discipline: Nursing Learning Topic: [...] supervision. Stephanie Kaur RN documented in this encounterCincinnati Children'S [facility] Center08-31-2022 Procedure note* Leonard Dugan MD - 11/12/2021 11:00 AM EDTProcedure(s): CYSTOSCOPY Pre-Procedure Diagnose(s): BPH with obstruction/lower urinary tract symptoms Post-Procedure Diagnose(s): BPH with obstruction/lower urinary tract symptoms PROCEDURE: CYSTOSCOPY INDICATIONS: ED 11/07/21: PVR 179 cc, refused a catheter, scheduled to undergo a cystoscopy in [place] but was cancelled due to his urologist [...] Otherwise, intermittent catheterization. Agreed indwelling catheter 18 prydeinig. By signing my name below, Zuleika Mancini, attest that this documentation has been prepared under the direction and in the presence of Dr. Dugan. Zuleika Hackett Scribe Provider Attestation: Leonard Mancini M.D., personally performed the services described in this documentation. All medicalrecord entries made by the scribe were at my direction and in my presence. I have reviewed the chart and discharge instructions (if applicable) and agree that the record reflects my personal performance and is accurate and complete. Leonard Dugan M.D. documented in this encounterCincinnati [facility]08-29-2022 History of Present illness Narrative* Leonard Dugan MD - 11/10/2021 12:11 PM EDT Cysto with uroflow 11-12-21 ED 11/07/21: PVR 179 cc, refused a catheter, scheduled to undergo a cystoscopy in [place] but was cancelled due to his urologist was sick Pt underwent TURP x2 within a week AUA= 3-5 wach ROSAMARIA 11/10/21 - 10 gm, rubbery, no nodules US 11/07/21:= mildly complex renal cysts UA and culture 11-07-21= -ve May need UDS based on cysto documented in this encounterOhioHealth Nelsonville Health Centeraluation + Plan note No data available for this section [facility] Evaluation note* Diagnosis BPH with obstruction/lower urinary tract symptoms- Primary Hypertrophy of prostate with urinary obstruction and other lower urinary tract symptoms (LUTS) Benign prostatic hyperplasia with urinary retention documented in this encounter [facility]* Diagnosis Urinary frequency- Primary Urinary urgency Urgency of urination Urinary straining Straining on urination Feeling of incomplete bladder emptying Incomplete bladder emptying documented in this encounter [facility] CenterEvalub[facility]* Diagnosis Urinary tract infection without hematuria, site unspecified- Primary Feeling of incomplete bladder emptying Incomplete bladder emptying Benign prostatic hyperplasia with urinary retention documented in this encounter [facility] CenterEvalubayhealth [facility] noteNo assessment information availableTrihealth [facility] Work Phone: Evaluation note* Diagnosis Retention of urine- Primary Retention of urine, unspecified Flaccid bladder Neurogenic bladder, NOS documented in this encounter [facility] CenterEvalub[facility] note* Diagnosis Chronic epididymitis- Primary Left hydrocele Hydrocele, unspecified Weak urinary stream Slowing of urinary stream BPH without obstruction/lower urinary tract symptoms Hypertrophy of prostate without urinary obstruction and other lower urinary tract symptoms (LUTS) Epididymitis Orchitis and epididymitis, unspecified documented in this encounter [facility] CenterEvaluation noteNo [facility] Other Evaluation note* Diagnosis BPH with obstruction/lower urinary tract symptoms- Primary Hypertrophy of prostate with urinary obstruction and other lower urinary tract symptoms (LUTS) Recurrent UTI Urinary tract infection, site not specified Weak urinary stream Slowing of urinary stream documented in this encounter [facility] CenterEvalub[facility]* Diagnosis Onset Date Resolution Status Chronic venous insufficiency of lower extremity acute Type 2 diabetes mellitus with hyperglycemia acute Chronic kidney disease acute Chronic venous insufficiency of lower extremity acute Elevated cholesterol acute HTN (hypertension) acute Type 2 diabetes mellitus with hyperglycemia acute [facility] Work Phone: Evaluation note* Diagnosis Onset Date Resolution Status Chronic venous insufficiency of lower extremity acute Type 2 diabetes mellitus with hyperglycemia acute Chronic kidney disease acute Chronic venous insufficiency of lower extremity acute Elevated cholesterol acute HTN (hypertension) acute Overweight acute Type 2 diabetes mellitus with hyperglycemia acute [facility] Work Phone: Evaluation note* Diagnosis Onset [...] acute Preop exam for internal medicine noneactive [facility] Work Phone: Evaluation note* Diagnosis Benign prostatic hyperplasia, unspecified whether lower urinary tract symptoms present- Primary Recurrent UTI Urinary tract infection, site not specified Nocturia documented in this encounter [facility] CenterEvalub[facility] note* Diagnosis Onset Date Resolution Status Chronic [...] Type 2 diabetes mellitus with hyperglycemia acute [facility] Work Phone: Evaluation note* Diagnosis Onset Date Resolution Status Chronic kidney disease acute Chronic venous insufficiency of lower extremity acute Elevated cholesterol acute HTN (hypertension) acute Overweight acute Type 2 diabetes mellitus with diabetic polyneuropathy acute Type 2 diabetes mellitus with hyperglycemia acute [facility] Work Phone: Evaluation note* Diagnosis 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 2 diabetes mellitus ([facility])- Primary 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 Dry eyes Unspecified tear film insufficiency Blepharitis of upper and lower eyelids of both eyes, unspecified type [facility] Diagnosis Onset Date Resolution Status Chronic kidney disease acute Chronic venous insufficiency of lower extremity acute Elevated cholesterol acute HTN (hypertension) acute Medicare annual wellness visit, subsequent acute Overweight acute Type 2 diabetes mellitus with diabetic polyneuropathy acute Type 2 diabetes mellitus with hyperglycemia acute [facility] Work Phone: History general Narrative - [...] cystoscopy 09.20.2019 Hospitalization History see surgical history [facility] Other Hospital Discharge instructions No data available for this section [facility] Progress note No data available for this section [facility] Reason for referral (narrative)* Outpatient Procedure (Routine) - Pending Review Specialty Diagnoses / Procedures Referred By Marce dillon Referred To Contact [facility] Diagnoses 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 Procedures URODYNAMICS MAGGY POST-VOIDING RESIDUAL URINE&/BLADDER CAP Leonard Dugan MD [address] [place] [address] [address] [address] [place] [address] Referral ID Status Reason Start Date Expiration Date Visits Requested Visits Authorized [id number] Pending Review Auto-Generat ed Referral 11/12/2021 11/12/2022 1 1 [facility] Medications Administered Section Inactive Administered [...] EDT 11 mL Summary Purpose Family History Relationship Condition Age at Onset Recorded Date/T augusta father Heart disease Unknown Unknown Not Specified Unknown Malignant neoplasm Unknown Relationship Condition Age at Onset Recorded Date/T augusta father Heart disease Unknown Unknown mother Unknown Malignant neoplasm Unknown Advance Directives Advance [...] 2 diabetes mellitus with hyperglycemia Chief Complaint Flu Shot wellness Reason for Visit Chronic kidney disea se Chronic venous insufficiency of lower extremity Elevated cholesterol HTN (hypertension) Medicare annual wellness visit, subsequent Overweight Type 2 diabetes mellitus with diabetic polyneuropathy Type 2 diabetes mellitus with hyperglycemia Reason for Referral Reason Refer for diabetic f oot ulcer and calluses Diagnosis 1 Foot abscess, right (L02.611) Diagnosis 2 Callus of foot (L84) Diagnosis 3 Hammer toe of right foot (M20.41) Referral Organization [facility] Juanita ugalde Referring Provider First Name Campbell Referring Provider Last Name Quentin Referring Provider Specialty Internal Me dicarmando Referred Organization [facility] Referred Provider Jhon Tejada Referred Address [address], [place],[address] Referred Provider Specialty Podiatry - S urgical [...] or prosecute any alcohol or drug abuse patient.[facility] CenterIn the event this information is protected by the Federal Confidentiality of Alcohol and Drug Abuse Patient Records regulations: The Federal rules restrict any use of the information to criminally investigate or prosecute any alcohol or drug abuse patient.[facility] CenterIn the event this information is protected by the Federal Confidentiality of Alcohol and Drug Abuse Patient Records regulations: The Federal rules restrict any use of the information to criminally investigate or prosecute any alcohol or drug abuse patient.[facility] CenterIn the event this information is protected by the Federal Confidentiality of Alcohol and Drug Abuse Patient Records regulations: The Federal rules restrict any use of the information to criminally investigate or prosecute any alcohol or drug abuse patient.[facility] CenterIn the event this information is protected by the Federal Confidentiality of Alcohol and Drug Abuse Patient Records regulations: The Federal rules restrict any use of the information to criminally investigate or prosecute any alcohol or drug abuse patient.[facility] CenterIn the event this information is protected by the Federal Confidentiality of Alcohol and Drug Abuse Patient Records regulations: The Federal rules restrict any use of the information to criminally investigate or prosecute any alcohol or drug abuse patient.[facility] CenterIn the event this information is protected by the Federal Confidentiality of Alcohol and Drug Abuse Patient Records regulations: The Federal rules restrict any use of the information to criminally investigate or prosecute any alcohol or drug abuse patient.[facility] CenterIn the event this information is protected by the Federal Confidentiality of Alcohol and Drug Abuse Patient Records regulations: The Federal rules restrict any use of the information to criminally investigate or prosecute any alcohol or drug abuse patient.[facility] CenterIn the event this information is protected by the Federal Confidentiality of Alcohol and Drug Abuse Patient Records regulations: The Federal rules restrict any use of the information to criminally investigate or prosecute any alcohol or drug abuse patient.[facility] CenterIn the event this information is protected by the Federal Confidentiality of Alcohol and Drug Abuse Patient Records regulations: The Federal rules restrict any use of the information to criminally investigate or prosecute any alcohol or drug abuse patient.[facility] CenterIn the event this information is protected by the Federal Confidentiality of Alcohol and Drug Abuse Patient Records regulations: The Federal rules restrict any use of the information to criminally investigate or prosecute any alcohol or drug abuse patient.[facility] CenterIn the event this information is protected by the Federal Confidentiality of Alcohol and Drug Abuse Patient Records regulations: The Federal rules restrict any use of the information to criminally investigate or prosecute any alcohol or drug abuse patient.[facility] CenterIn the event this information is protected by the Federal Confidentiality of Alcohol and Drug Abuse Patient Records regulations: The Federal rules restrict any use of the information to criminally investigate or prosecute any alcohol or drug abuse patient.[facility] Care Teams (unrecognized sec tion and content) Team Status: Active Member Role Status Dates Campbell Naranjo , DO Primary Care Provider Active Team Status: [...] Status: Inactive Member Role Status Dates Campbell Narnajo DO Primary Care Provide r, Attending Provider Active Start: May 21, 2023 End: May 21, 2023 Team Status: Active Member Role Status Dates Campbell Ball , DO Primary Care Provider Active Start: May [...] Active Low Carter , Emergency Provider Active [employer] Sawyer Relationship Specialty Start Date End Date Ran Lees Jr. PCP - General 10/10/09 [employer] Relationship Specialty Start Date End Date Ran Lees Jr. PCP - General 10/10/09 [employer] Relationship Specialty Start Date End Date Ran Lees Jr. PCP - General 10/10/09 [employer] Relationship Specialty Start Date End Date Campbell Naranjo, DO [address] [facility] [address] PCP - General Internal Medicine 11/26/21 [employer]yer Relationship Specialty Start Date End Date Campbell Naranjo, DO [address] [facility] [place] [address] PCP - General Internal Medicine 11/26/21 [employer] Sawyer Relationship Specialty Start Date End Date Campbell Naranjo, DO [address] [facility] [place] [address] PCP - General Internal Medicine 11/26/21 [employer]yer Relationship Specialty Start Date End Date Campbell Naranjo, DO [address] [facility] [place] [address] PCP - General Internal Medicine 11/26/21 Team Status: Inactive Member Role Status Dates Campbell Naranjo DO Primary Care Provider Active Davis Cervantes MD Emergency Provider Active [employer] Relationship Specialty Start Date End Date Campbell Naranjo, DO [address] [facility] [place] [address] PCP - General Internal Medicine 11/26/21 Team Status: Inactive Member Role Status Dates Campbell Naranjo DO Primary Care Provider Active Sam Simons DO Emergency Provider Active Team Status: Inactive Member Role Status Dates Campbell Naranjo DO Primary Care Provider Active Sam Simons , Attending Provider Active [employer] Sawyer Relationship Specialty Start Date End Date Campbell Naranjo, DO [address] [place] [address] PCP - General Internal Medicine 11/26/21 [employer] Relationship Specialty Start Date End Date Campbell Naranjo, DO [address] [place] [address] PCP - General Internal Medicine 11/26/21 [employer]yer Relationship Specialty Start Date End Date Campbell Naranjo DO [address] [place] [address] PCP - General Internal Medicine 11/26/21 Team Status: Active Member Role Status Dates Campbell Naranjo DO Primary Care Provide r, Attending Provider Active Start: July 06, 2023 Team Status: Inactive Member Role Status Dates Campbell Naranjo DO Primary Care Provide r, Attending Provider Active Start: July 09, 2023 End: July 09, 2023 Team Status: Inactive Member Role Status Dates Campbell Naranoj DO Primary Care Provider Active Start: July [...] July 22, 2023 End: July 22, 2023 [employer] Sawyer Relationship Specialty Start Date End Date Campbell Naranjo DO [address] [facility] [place] [address] PCP - General Internal Medicine 11/26/21 Team Status: Active Member Role Status Dates Campbell Naranjo DO Primary Care Provider Active Start: July 26, 2023 Leticia Milian APRN Attending Provider Active Start: July 26, 2023 Team Status: Active Member Role Status Dates Campbell Naranjo DO Primary Care Provider Active Start: August 04, 2023 TAMMY Fair Attending Provider Active Start : August 04, 2023 [employer] Sawyer Relationship Specialty Start Date End Date Campbell Naranjo MD [address] [place] [id number] PCP - General Internal Medicine 12/17/23 [employer] Relationship Specialty Start Date End Date Campbell Naranjo MD [address] [place] [address] PCP - General Internal Medicine 12/17/23 [employer]yer Relationship Specialty Start Date End Date Campbell Naranjo MD [address] [place] [id number] PCP - General Internal Medicine 12/17/23 Team Status: Inactive Member Role Status Dates Campbell Naranjo DO Primary Care Provide r, Attending Provider Active Start: December 28, 2023 End: December 28, 2023 Reason for Visit (unrecogniz ed section [...] section and content) DATE CREATED AUTHOR 12/13/2021 [facility] DATE CREATED AUTHOR AUTHOR'S ORGANIZ ATION 06/25/2022 [facility] DATE CREATED AUTHOR AUTHOR'S ORGANIZ ATION 07/27/2023 [facility] DATE CREATED AUTHOR AUTHOR'S ORGANIZ ATION 08/06/2023 [facility] DATE CREATED AUTHOR AUTHOR'S ORGANIZ ATION 12/19/2023 [facility] DATE CREATED AUTHOR AUTHOR'S ORGANIZ ATION 12/19/2023 [facility] DATE CREATED AUTHOR AUTHOR'S ORGANIZ ATION 12/26/2023 [facility] Goals (unrecognized section and content) Goals may [...] alternate section No data available for this sectionGoals may be documented in an alternate [...] BE BASED ON THE PRIMARY CLINICAL RECORDS. [employer] provides no warranty or guarantee of the accuracy or completeness of information in this document.
--- NOTE | 2024-01-30 16:58 | ECG_ITS ---
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
--- NOTE | 2024-01-30 17:06 | ED_ITS ---
HPI - Arrhythmia/Palpitations General Chief Complaint: Arrhythmia/Palpitations Stated Complaint: fast hr Time Seen by Provider: 01/30/24 16:58 Source: patient Mode of arrival: walk-in Limitations: no limitations History of Present Illness HPI narrative: The patient have a history of hypertension hyperlipidemia is coming to the ER after he noticed when he was measuring his heart rate that was elevated above 140, the patient denies any dizziness chest pain he mentioned that he had his daily activity of doing some yard work today with no difficulty He did not have any chest pain at any time and he regularly measure his blood pressure daily with no finding above 70 usually heart rate The patient denies any dizziness chest pain shortness of breath Related Data Home Medications ?Medication ?Instructions ?Recorded ?Confirmed gabapentin 300 mg capsule 300 mg PO TID 03/08/23 07/22/23 glipizide 2.5 mg tablet, extended 2.5 mg PO QAM 03/08/23 07/22/23 release 24 hr lisinopril 20 mg tablet 20 mg PO .qhs 03/08/23 07/22/23 lovastatin 40 mg tablet 40 mg PO .qhs 03/08/23 07/22/23 tamsulosin 0.4 mg capsule 0.4 mg PO Q24H 03/08/23 07/22/23 amlodipine 5 mg tablet 5 mg PO QNOON 07/06/23 07/22/23 antiarthritic combination no.2 900 900 mg PO DAILY 07/06/23 07/22/23 mg tablet (glucosamine-chondroitin) aspirin 81 mg tablet,delayed 81 mg PO DAILY 07/06/23 07/22/23 release (Adult Aspirin Regimen) multivitamin (Daily Multi-Vitamin 1 tab PO DAILY 07/06/23 07/22/23 tablet) turmeric 400 mg capsule 400 mg PO DAILY 07/06/23 07/22/23 Previous Rx's ?Medication ?Instructions ?Recorded cephalexin 500 mg capsule 500 mg PO BID 14 days #28 caps 07/22/23 hydrocodone 5 mg-acetaminophen 325 1 tab PO Q8H PRN pain 7 days #21 07/22/23 mg tablet tabs apixaban 5 mg tablet (Eliquis) 5 mg PO BID 30 days #60 tabs 01/30/24 metoprolol succinate 25 mg 25 mg PO DAILY #20 tabs 01/30/24 tablet,extended release 24 hr (Toprol XL) Allergies Allergy/AdvReac Type Severity Reaction Status Date / Time ciprofloxacin (From Cipro) Allergy Severe Rash Verified 01/30/24 16:58 Sulfa (Sulfonamide Allergy Severe Rash Verified 01/30/24 16:58 Antibiotics) Review of Systems ROS Status of ROS 10 or more systems reviewed and unremark able except as noted in history and below [facility] Medical History (Updated 01/30/24 @ 18:12 by Mey Carlson MD) Chronic osteomyelitis of right foot ?M86.671 - Other chronic osteomyelitis, right ankle and foot (ICD-10) Non-pressure chronic ulcer of other part of left foot with unspecified severity ?L97.529 - Non-pressure chronic ulcer of other part of left foot with unspecified severity (ICD-10) Hypothyroidism ?E03.9 - Hypothyroidism, unspecified (ICD-10) Acute renal insufficiency ?N28.9 - Disorder of kidney and ureter, unspecified (ICD-10) Iron deficiency anemia ?D50.9 - Iron deficiency anemia, unspecified (ICD-10) Cellulitis of foot, right ?L03.115 - Cellulitis of right lower limb (ICD-10) Diabetic ulcer of right fifth toe ?E11.621 - Type 2 diabetes mellitus with foot ulcer (ICD-10) ?L97.519 - Non-pressure chronic ulcer of other part of right foot with unspecified severity (ICD-10) HLD (hyperlipidemia) ?E78.5 - Hyperlipidemia, unspecified (ICD-10) Diabetic infection of right foot ?E11.628 - Type 2 diabetes mellitus with other skin complications (ICD-10) ?L08.9 - Local infection of the skin and subcutaneous tissue, unspecified (ICD-10) Neuropathy ?G62.9 - Polyneuropathy, unspecified (ICD-10) Fracture, ankle ?S82.899A - Other fracture of unspecified lower leg, initial encounter for closed fracture (ICD-10) Benign prostate hyperplasia ?N40.0 - Benign prostatic hyperplasia without lower urinary tract symptoms (ICD-10) Hypertension ?I10 - Essential (primary) hypertension (ICD-10) Diabetes ?E11.9 - Type 2 diabetes mellitus without complications (ICD-10) Surgical History (Updated 07/06/23 @ 11:11 by Asha Erickson NP) History of colonoscopy ?Z98.890 - Other specified postprocedural states (ICD-10) H/O rotator cuff surgery ?Z98.890 - Other specified postprocedural states (ICD-10) History of toe surgery ?Z98.890 - Other specified postprocedural states (ICD-10) History of appendectomy ?Z90.49 - Acquired absence of other specified parts of digestive tract (ICD- 10) Hx of tonsillectomy ?Z90.89 - Acquired absence of other organs (ICD-10) Family History (Updated 07/06/23 @ 11:11 by Asha Erickson NP) Mother Family history of cancer Father Family history of stroke Other Family history of aneurysm Social History (Updated 07/21/23 @ 13:32 by Ness Blunt RN) Within the past year, how often did you have a drink containing alcohol: never Score interpretation: A score less than 4 is consistent with normal alcohol consumption. 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 General: Well-appearing and in no apparent distress. Skin: Warm, dry, no pallor noted. No rash. Head: Normocephalic, atraumatic. Neck: Supple, non-tender. Eye: Pupils are equal, round and EOMI. No scleral icterus. Ears, Nose, Mouth, and Throat: TM are clear, no nasal mucosal hypertrophy. Oral mucosa is moist, no posterior oropharynx erythema, uvula is mid-line Cardiovascular: Rapid rate and Rhythm without murmur, gallop or rub. Respiratory: No accessory muscle use or respiratory distress. Lungs are clear to auscultation, no wheezing, rales or rhonchi Chest Wall: no tenderness Back: No midline thoracic or lumbar vertebral tenderness. No CVA tenderness Musculoskeletal: normal ROM, no calf or popliteal tenderness, the patient have chronic edema mildly in the right leg 1+ more than the left GI: Abdomen is soft, non-distended. Normal bowel sounds. No masses appreciated. No tenderness to palpation. No rebound, guarding, or rigidity noted. Neurological: A&O x4. No cranial nerve dysfunction observed. Moves all extremities. Sensation intact. Psychiatric: Cooperative and interactive. Normal mood and affect. Constitutional Vital Signs, click to edit/add: Last Vital Signs Pulse 74 01/30/24 18:31 Resp 14 01/30/24 18:31 BP 165/97 H 01/30/24 18:31 Pulse Ox 100 01/30/24 18:31 O2 Del Method Room Air 01/30/24 16:58 Course Vital Signs Vital signs: Vital Signs Pulse Rate 142 H 01/30/24 16:58 Respiratory Rate 16 01/30/24 16:58 Blood Pressure 142/103 H 01/30/24 16:58 Pulse Oximetry 98 01/30/24 16:58 Oxygen Delivery Method Room Air 01/30/24 16:58 Pulse Rate 74 01/30/24 18:31 Respiratory Rate 14 01/30/24 18:31 Blood Pressure 165/97 H 01/30/24 18:31 Pulse Oximetry 100 01/30/24 18:31 Oxygen Delivery Method Room Air 01/30/24 16:58 MDM - Arrhythmia/Palpitations MDM Narrative Medical decision making narrative: Upon arrival the patient EKG showing heart rate 142 possibility a flutter The patient heart rate responded even before the patient was given any beta- layla and he had a EKG again repeated showing sinus rhythm with a heart rate of [address] elevation or depression CBC and chemistry showed no acute pathology except of chronic kidney disease And the patient troponin the first test was normal and I am waiting for the second The patient second troponin was negative and the case was discussed with Dr. Godinez in cardiology service she agreed that the patient will be started on metoprolol XL 25 mg daily right now in addition to he will follow-up tomorrow with cardiology for placement of Holter monitor Patient also was started on Eliquis The patient to follow-up tomorrow with cardiology service for Holter placement Patient to come back to the ER in case of any concern Lab Data Labs: Lab Results 01/30/24 01/30/24 Range/Units 17:01 18:05 WBC 9.4 (4.0-11.0) 10^3/uL RBC 4.37 L (4.70-6.10) 10^6/uL Hgb 14.4 (14.0-18.0) g/dL Hct 40.7 L (42.0-54.0) % MCV 93.1 (80.0-94.0) fL MCH 33.0 (25.9-34.0) pg MCHC 35.4 H (29.9-35.2) g/dL RDW 11.5 (11.0-15.0) % Plt Count 235 (150-450) 10^3/uL MPV 9.4 L (9.5-13.5) fL Neut % (Auto) 60.9 (43.0-75.0) % Lymph % (Auto) 23.6 (20.5-60.0) % [place] % (Auto) 12.6 H (1.7-12.0) % Eos % (Auto) 1.9 (0.9-7.0) % Baso % (Auto) 0.5 (0.2-2.0) % Neut # (Auto) 5.7 (1.4-6.5) 10^3/uL Lymph # (Auto) 2.2 (1.2-3.8) 10^3/uL [place] # (Auto) 1.2 H (0.3-0.8) 10^3/uL Eos # (Auto) 0.2 (0.0-0.7) 10^3/uL Baso # (Auto) 0.1 (0.0-0.1) 10^3/uL Abs Immat Gran (auto) 0.05 H (0.00-0.03) 10^3/uL Imm/Tot Granulo (auto) 0.5 (0.0-0.5) % PT 11.3 (9.0-11.6) sec INR 1.07 Sodium 138 (136-145) mmol/L Potassium 4.5 (3.5-5.1) mmol/L Chloride 103 (98-107) mmol/L Carbon Dioxide 24.9 (21.0-32.0) mmol/L Anion Gap 14.6 BUN 18.0 (7.0-18.0) mg/dL Creatinine 1.32 H (0.70-1.30) mg/dL Est GFR ( Amer) >60 (>=60 mL/min/1.73m^2) Est GFR (Non-Af Amer) 52 L (>=60 mL/min/1.73m^2) BUN/Creatinine Ratio 13.6 Glucose 113 H (74-106) mg/dL Calcium 9.3 (8.5-10.1) mg/dL Magnesium 2.2 (1.8-2.4) mg/dL Total Bilirubin 0.4 (0.2-1.0) mg/dL AST 25 (15-37) U/L ALT 25 (16-63) U/L Alkaline Phosphatase 79 (46-116) U/L Troponin I High Sens 15.4 18.5 (4.0-76.1) pg/mL Total Protein 7.3 (6.4-8.2) g/dL Albumin 3.9 (3.4-5.0) g/dL Globulin 3.4 g/dL Albumin/Globulin Ratio 1.1 Discharge Plan Discharge Chief Complaint: Arrhythmia/Palpitations Clinical Impression: Atrial flutter Patient Disposition: Home, Self-Care Time of Disposition Decision: 18:31 Condition: Good Prescriptions / Home Meds: New Eliquis 5 mg tablet 5 mg PO BID 30 Days Qty: 60 0RF metoprolol succinate [Toprol XL] 25 mg tablet extended release 24 hr 25 mg PO DAILY Qty: 20 0RF No Action lisinopril 20 mg tablet 20 mg PO .qhs tamsulosin 0.4 mg capsule 0.4 mg PO Q24H glipizide 2.5 mg tablet extended release 24hr 2.5 mg PO QAM gabapentin 300 mg capsule 300 mg PO TID lovastatin 40 mg tablet 40 mg PO .qhs amlodipine 5 mg tablet 5 mg PO QNOON glucosamine-chondroitin 900 mg tablet 900 mg PO DAILY turmeric 400 mg capsule 400 mg PO DAILY aspirin [Adult Aspirin Regimen] 81 mg tablet,delayed release (DR/EC) 81 mg PO DAILY multivitamin [Daily Multi-Vitamin] Tablet 1 tab PO DAILY cephalexin 500 mg capsule 500 mg PO BID 14 Days Qty: 28 0RF hydrocodone-acetaminophen 5-325 mg tablet 1 tab PO Q8H PRN (Reason: pain) 7 Days Qty: 21 0RF Print Language: Welsh Instructions: Atrial Flutter (DC) Additional Instructions: Please follow tomorrow with [place] cardiology for Holter Monitor Referrals: Campbell Naranjo DO [Primary Care Provider] - 1 week Car Godinez MD [Physician] - As soon as possible (Address: [address] [place], [place] [id number] )
--- NOTE | 2024-01-30 17:08 | ECG_ITS ---
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
[2024-01-30 17:16] LABS: Basophils Absolute Auto 0.1 10^3/uL (0.0-0.1); Basophils Percent Auto 0.5 % (0.2-2.0); Eosinophils Absolute Auto 0.2 10^3/uL (0.0-0.7); Eosinophils Percent Auto 1.9 % (0.9-7.0); Hematocrit 40.7 % (42.0-54.0); Hemoglobin 14.4 g/dL (14.0-18.0); Immature Granulocytes Abs Auto 0.05 10^3/uL (0.00-0.03); Immature Granulocytes Pct Auto 0.5 % (0.0-0.5); Lymphocytes Absolute Auto 2.2 10^3/uL (1.2-3.8); Lymphocytes Percent Auto 23.6 % (20.5-60.0); Mean Corpuscular HGB Conc 35.4 g/dL (29.9-35.2); Mean Corpuscular Volume 93.1 fL (80.0-94.0); Mean Platelet Volume 9.4 fL (9.5-13.5); Monocytes Absolute Auto 1.2 10^3/uL (0.3-0.8); Monocytes Percent Auto 12.6 % (1.7-12.0); Neutrophils Absolute Auto 5.7 10^3/uL (1.4-6.5); Neutrophils Percent Auto 60.9 % (43.0-75.0); Platelet Count 235 10^3/uL (150-450); Red Blood Count 4.37 10^6/uL (4.70-6.10); Red Cell Distribution Width 11.5 % (11.0-15.0); White Blood Count 9.4 10^3/uL (4.0-11.0)
[2024-01-30 17:29] LABS: INR 1.07; Prothrombin Time 11.3 sec (9.0-11.6)
[2024-01-30 17:35] LABS: Alanine Aminotransferase 25 U/L (16-63); Albumin Globulin Ratio 1.1; Albumin Level 3.9 g/dL (3.4-5.0); Alkaline Phosphatase 79 U/L (46-116); Anion Gap 14.6; Aspartate Amino Transferase 25 U/L (15-37); BUN Creatinine Ratio 13.6; Bilirubin Total 0.4 mg/dL (0.2-1.0); Calcium 9.3 mg/dL (8.5-10.1); Carbon Dioxide 24.9 mmol/L (21.0-32.0); Chloride 103 mmol/L (98-107); Estimated GFR (African America >60 (>=60 mL/min/1.73m^2); Estimated GFR (Non-African Ame 52 (>=60 mL/min/1.73m^2); Globulin 3.4 g/dL; Glucose 113 mg/dL (74-106); Magnesium 2.2 mg/dL (1.8-2.4); Potassium 4.5 mmol/L (3.5-5.1); Sodium 138 mmol/L (136-145); Total Protein 7.3 g/dL (6.4-8.2); Troponin I High Sensitivity 15.4 pg/mL (4.0-76.1)
[2024-01-30 18:32] LABS: Troponin I High Sensitivity 18.5 pg/mL (4.0-76.1)
[2024-01-30] MEDS: METOPROLOL SUCCINATE 25 MG TAB.ER.24H PO (18:48)
[2024-01-30] MEDS: APIXABAN 5 MG TABLET PO (18:48)
== END 2024-01-30 19:05 | disposition home or self-care (01) ==
PROVIDERS: Emergency Provider Emergency Medicine; PCP Internal Medicine
DX: I48.3 Typical atrial flutter (principal); R53.83 Other fatigue; E78.5 Hyperlipidemia, unspecified; I10 Essential (primary) hypertension
CPT/HCPCS: 36415; 80053; 83735; 84443; 84484; 85025; 85610; 93005; 99285

== ENCOUNTER 2024-03-11 11:34 | Emergency (ER) | payer MEDICARE, SELFPAY ==
[2024-03-11] VITALS (12 sets, daily range): BP systolic 158–251; BP diastolic 78–116; PULSE 110–128; TEMP 37.7; O2SAT 95–98; BMI 28.1
--- OUTSIDE RECORDS SUMMARY | 2024-03-11 11:45 | XMS_ITS | CCD ---
Author Organization [facility] Care Team Providers Care Increment Manager Name Role Phone Ran Houston Jr. Primary Care Provider Unava ilable RAN HOUSTON JR Primary Care Unavailable KEELY SANCHEZ Attending Unavailable CAMPBELL SAAVEDRA Primary Care Unavailable Campbell Saavedra DO Primary Care Provider DO Campbell Saavedra Primary Care Provider MD Davis Cervantes Emergency Provider [phone] DO Sam Simons Emergency Provider DO Sam Simons Attending Provider Campbell Saavedra Unavailable DR CAMPBELL SAAVEDRA Primary Care Unavailable BALL, DR HIGHTOWER Consulting Unavailable BALL, [...] BALL, DR HIGHTOWER Primary Care Unavailable RANDALLLEIDY Consulting Unavailable BAPTISTE, DR ROBIN Duncan Admitting Unavailable BAPTISTE, DR ROBIN Duncan Attending Unavailable BAPTISTE, DR ROBIN Duncan Consulting Unavailable BALL, DR HIGHTOWER Primary Care Unavailable QUENTIN, DR HIGHTOWER Admitting Unavailable BALL, DR HIGHTOWER Attending Unavailable BALL, DR HIGHTOWER Consulting Unavailable QUENTIN, DR HIGHTOWER Primary Care Unavailable MELISSA, DR SAMY Nieves Consulting Unavailable QUENTIN, DR HIGHTOWER Admitting Unavailable BALL, DR HIGHTOWER Attending Unavailable BALL, DR HIGHTOWER Consulting Unavailable BALL, DR HIGHTOWER Primary Care Unavailable QUENTIN, DR HIGHTOWER Admitting Unavailable BALL, DR HIGHTOWER Attending Unavailable BALL, DR HIGHTOWER Consulting Unavailable BALL, DR HIGHTOWER Primary Care Unavailable Cornell Baptiste Unavailable DO Campbell Saavedra Primary Care Provider Tupa, DO [place] Emergency Provider Campbell Saavedra DO Primary Care Provider Quentin, DO Hightower Primary Care Provider Tupa, DO [place] Emergency Provider CHRISTIAN Tejada Attending Provider Jhon Tejada Attending Unavailable Jhon Tejada Admitting Unavailable Campbell Saavedra Primary Care Unavailable Jhon Tejada Attending Unavailable Jhon Tejada Admitting Unavailable Campbell Saavedra Primary Care Unavailable Tuzack, [place] Admitting Unavailable Campbell Saavedra Primary Care Unavailable Emma, [place] Attending Unavailable [place], [place] Attending Unavailable Emma, [place] Admitting Unavailable Campbell Saavedra Primary Care Unavailable Campbell Saavedra DO Primary Care Provider DO Campbell Saavedra Primary Care Provider STERLING TORRES Attending Unavailable Sterling Torres Admitting Unavailable Sterling Torres Attending Unavailable Campbell Saavedra MD Primary Care Provider CAMPBELL SAAVEDRA Primary Care Physician [phone] Sterling Torres Admitting Unavailable Sterling Torres Attending Unavailable CAMPBELL SAAVEDRA Primary Care Unavailable RUKHSANA, LETICIA D Referring Unavailable CAMPBELL SAAVEDRA Primary Care Unavailable RUKHSANA, LETICIA D Referring Unavailable CAMPBELL SAAVERDA Primary Care Unavailable RUKHSANA, LETICIA D Attending Unavailable CAMPBELL SAAVEDRA Primary Care Unavailable RUKHSANA, LETICIA D Attending Unavailable CAMPBELL SAAVEDRA Primary Care Unavailable CAMPBELL SAAVEDRA Referring Unavailable Allergies Allergy Classification Reported Allergen(s) Allergy Type Date of Onset Reaction(s) Facility (20 sources) Ciprofloxacin; Translations: [CIPROFLOXACIN] Drug Allergy 08-01-19 10 GI Upset, hives, Weal (disorder) [facility] (20 sources) Sulfonamides (Antibiotic); Translations: [SULFA (SULFONAMIDE ANTIBIOTICS)] Propensity to adverse reactions 08-01-19 10 Rash, hives [facility] (2 sources) Ciprofloxacin; Translations: [Cipro] Drug Allergy [facility] Repository (1 source) Sulfonamides (Antibiotic) Drug allergy (disorder) [facility] (1 source) Allergies Reconciled Propensity to adverse reactions Unknown [facility] Other (1 source) patient allergy list reviewed by nurse or physicia Propensity to adverse reactions 05-20-19 Comment:Done [facility] Other (1 source) Ciprofloxacin Drug Allergy 07-09-19 [facility] Repository (1 source) Sulfonamides (Antibiotic) Drug allergy (disorder) 07-09-19 [facility] Repository (2 sources) Sulfonamides (Antibiotic); Translations: [sulfa drugs] Propensity to adverse reactions (disorder) Weal (disorder) [facility] Repository Medications Current Medications Medication Drug Class(es) Dates Sig (Normalized) Sig (Original) apixaban 2.5 mg oral tablet (3 sources) Factor Xa Inhibitor Start: 02-01-2024 take 1 tablet by mouth twice daily Apixaban 2.5 mg tablet Active 2.5 MG PO Twice daily 60 30 February 01, 2024 2:06pm Start: 02-01-2024 apixaban (ELIQ UIS) 2.5 mg tab(s) 5 mg two times a day. 02/01/2024 Active Start: 02-01-2024 End: 02-01-2024 take 1 tablet by mouth twice daily Apixaban (Eliquis) 5 mg tablet Discontinued 5 MG PO Twice daily February 01, 2024 12:00am February 01, 2024 2:06pm aspirin 81 mg oral tablet (20 sources) Platelet Aggregation Inhibitor, Nonsteroidal Anti-inflammatory Drug Start: 12-11-2021 aspirin 81 mg cap Aspirin Active 81 MG PO Daily December 11, 2021 12:00am 12/11/2021 Active Start: 12-11-2021 take [address] [facility] once daily Aspirin 81 mg Capsule Active 81 MG PO Daily December 10, 2021 11:00pm aspirin 81 MG ch ewable tablet 1 (one) time each day at the same time Active Comment on above: Aspirin Active 81 MG PO Daily December 11, 2021 12:00am cephalexin 500 mg oral capsule (20 sources) Cephalosporin Antibacterial Start: take 1 capsule by mouth every twelve hours cephALEXin (KEFLEX) 500 mg capsule Take 1 capsule by mouth every 12 hours. 07/23/2023 Active Start: 01-23-2022 End: 01-23-2022 cephALEXin 500 mg cap(s) (KE FLEX) Start: 12-11-2021 End: 12-17-2021 take 1 capsule by mouth every eight hours Cephalexin 500 mg Capsule Discontinued 500 MG PO Q8H 02 10December 10, 2021 11:00pm December 17, 2021 4:10pm Start: 12-09-2021 End: 12-12-2021 take 1 capsule [...] FLEX) Start: 10-28-2021 take 1 capsule by [facility] once daily Keflex 500 mg Cap 500 mg = 1 cap(s), Oral, Daily, Take 1 capsule the day before the procedure and 1 capsule after the procedure, # 2 cap(s), Refills(s) 0, Pharmacy: [facility]/pharmacy #[id number], 192, cm, 12/14/19 10:22:00 EDT, Height/Length Dosing, 104, kg, 12/14/19 10:22:00 EDT, Weight Dosing Start Date: 10/28/21 Status: Ordered Comment on above: Take [address] [facility] twice daily. Take 1 capsule by [facility] three times daily for 3 days. Start evening prior procedure diclofenac 18 mg oral capsule (19 sources) Nonsteroidal Anti-inflammatory Drug take 1 capsule by mouth three times daily doxycycline hyclate 100 mg oral capsule (4 sources) Tetracycline-class Drug Start: doxycycline hyclate (VIBRAMYCIN) 100 mg capsule 12/26/2021 Active econazole nitrate 10 mg/ml topical cream (19 sources) Azole Antifungal gabapentin 300 mg oral capsule (20 sources) Anti-epileptic Agent Start: 01-09-2024 Gabapenti n 300 mg capsule Active 0 .ROUTE .COMPLEX 270 January 09, 2024 6:29pm TAKE 1 CAPSULE 3 TIMES A DAY Start: 05-25-2019 End: 01-09-2024 take 1 capsule by mouth three times daily Gabapentin 300 mg capsule Discontinued 300 MG PO Three times daily 270 90 August 04, 2023 10:00am January 09, 2024 6:29pm Start: 07-31-2009 End: 08-04-2023 gabapentin(NEURONTIN 300 MG CAP) Take one(1) tablet two(2) times daily. 0 0 07/31/2009 Active Gabapentin 300 M G 1 capsule bid and 2 q HS Orally tid Active Comment on above: Take one(1) tablet t wo(2) times daily. glipiZIDE er 2.5 mg 24 hr extended release oral tablet (20 sources) Sulfonylurea Start: 12-11-2021 End: 08-04-2023 take 1 tablet by mouth once daily Glipizide 2.5 mg tablet extended release 24hr Active 2.5 MG PO Daily 90 90 August 04, 2023 10:00am Start: 01-09-2010 take 2.5 mg by mouth once torsten y glipiZIDE 5 mg ORAL tablet Take 2.5 mg by mouth once daily. 0 01/09/2010 Active Start: 01-09-2010 take 1 mg by mouth once daily glipiZIDE 5 mg Tab mg tab(s), Oral, Daily, Refills(s) 0 Start Date: 05/25/19 Status: Ordered take 1 tablet by marisela th every twenty-four hours glipiZIDE XL 5 MG 1 tablet Orally Once a day Active Comment on above: Take one(1) tablet d aily. Take 2.5 mg by mouth once daily. glucosamine 500 mg oral tablet (20 sources) Start: 05-21-2023 take 1 tablet by mouth once daily Glucosamine Hcl 500 mg tablet Active 500 MG PO Daily May 21, 2023 12:00am administer with a meal Start: 05-25-2019 Glucosamine HC l 1,500 mg tab Take 1,500 mg by mouth. 05/25/2019 Active Comment on above: Take 1,500 [...] Angiotensin Converting Enzyme Inhibitor Start: 12-28-2023 Lisinopril 20 mg tablet Active 10 MG .ROUTE Twice daily December 28, 2023 7:41am 10 mg twice daily; Start: 12-28-2023 Lisinopril Act anil 10 MG .ROUTE Twice daily December 28, 2023 8:41am 10 mg twice daily; Start: 09-05-2023 End: 12-28-2023 Lisinopril 20 mg tablet Disc ontinued 0 .ROUTE .COMPLEX September 05, 2023 7:20am December 28, 2023 7:54am TAKE 1 TABLET DAILY Start: 05-21-2023 End: 09-05-2023 take 1 tablet by mouth once daily Lisinopril 20 mg tablet Discontinued 20 MG PO Daily June 17, 2023 11:03am September 05, 2023 7:20am Start: 12-11-2021 End: 05-21-2023 take 10 mg by mouth once daily Lisinopril 20 mg tablet Discontinued 10 MG PO Daily December 10, 2021 11:00pm May 21, 2023 11:03am Start: 12-11-2021 End: 05-21-2023 take 10 mg by mouth once daily Lisinopril Discontinued 10 MG PO Daily December 11, 2021 12:00am May 21, 2023 12:03pm Start: 07-31-2009 take 2 tablets by [facility] once daily lisinopril(PRINIVIL 10 MG TAB) Take 20 mg by mouth once daily. 0 0 07/31/2009 Active Start: 07-31-2009 take 1 mg by mouth [...] MG PO Daily December 11, 2021 12:00am 05/25/2019 Active Start: 05-25-2019 End: 06-17-2023 take 1 tablet by mouth once daily Lovastatin 40 mg tablet Discontinued 40 MG PO Daily December 10, 2021 11:00pm June 17, 2023 11:04am Comment on above: Lovastatin Active 40 MG PO Daily December 11, 2021 12:00am methylsulfonylmethane 1000 mg oral tablet (8 sources) Start : 05-20 take 1 capsule by mouth twice daily Methylsulfonylmethane (Msm) 1,000 mg capsule Active 1000 MG PO Twice daily May 21, 2023 12:00am 24 hr metoprolol succinate 25 mg extended release oral tablet (1 source) beta-Adrenergic Radha Start : 01-30 take 1 tablet by mouth every hour metoprolol succinate ER (TOPROL XL) 25 mg 24 hr tablet Take 1 tablet by mouth every afternoon. 01/31/2024 Active MSM 1500 MG (19 sources) MSM 1500 MG as d irected Orally Active Multi For Him - (4 sources) Multi For Him - as directed Orally Active Multivitamin (Daily Multi-Vitamin) tablet (8 sources) Start: 05-21-2023 take 1 tablet by mouth once daily Multivitamin (Daily Multi-Vitamin) tablet Active 1 TAB PO Daily May 21, 2023 12:00am Start: 05-21-2023 take 1 tablet by marisela th once daily Multivitamin (Daily Multi-Vitamin) tablet Active 1 TAB PO Daily May 21, 2023 1:00am Multivitamin preparation (1 source) multivitamin (MULTIPLE VITAMINS ORAL) Take by mouth. Active nitrofurantoin, macrocrystals 50 mg oral capsule [...] (20 sources) alpha-Adrenergic Radha Start: 10-12-19 Tamsulosin 0.4 mg capsule Active 0 .ROUTE .COMPLEX 180 October 12, 2023 7:41am TAKE 1 CAPSULE TWICE DAILY Start: 12-17-2021 End: 06-23-2023 take 1 capsule by mouth twice daily Tamsulosin 0.4 mg capsule Discontinued 0.4 MG PO Twice daily 180 90 June 17, 2023 11:04am June 23, 2023 8:54am Start: 11-14-2019 End: 01-28-2024 take 1 capsule by mouth once daily, then take 1 capsule by mouth once daily tamsulosin (FLOMAX) 0.4 mg Take 1 capsule by mouth once daily. Take one cap. daily 90 capsule 3 02/02/2023 Active Comment on above: Take 1 capsule by mo ut once daily. Take one cap. daily Turmeric extract (1 source) TURMERIC ORAL Ta ke by mouth. Active Turmeric Root-Yulisa Root Ext (7 sources) Start: 05-21-2023 Turmeric Root-Yulisa Root Ext Active TAB PO May 21, 2023 1:00am Turmeric Root-Yulisa Root Ext 150-25 mg tablet,chewable (1 source) Start: 05-21-2023 Turmeric Root-Yulisa Root Ext 150-25 mg tablet,chewable Active TAB PO May 21, 2023 12:00am Turmeric-Yulisa 150-25 MG (4 sources) Turmeric-Yulisa 150-25 MG as directed Orally Active vit A/vit C/vit E/zinc/copper (PRESERVISION AREDS ORAL) (1 source) vit A/vit C/vit E/zinc/copper (PRESERVISION AREDS ORAL) Take by mouth. Active Vitamins A,C,L-Jbws-Hnmncn (Preservision Areds) 4,296 mcg-226 mg-90 mg capsule (2 sources) Start: 12-28-2023 take 1 capsule by mouth twice daily Vitamins A,C,I-Urzo-Emhwrd (Preservision Areds) 4,296 mcg-226 mg-90 mg capsule Active 1 CAP PO Twice daily December 27, 2023 11:00pm Start: 12-28-2023 take [address] [facility] twice daily Vitamins A,C,A-Qwim-Ffngsj (Preservision Areds) 4,296 mcg-226 mg-90 mg capsule [...] Channel Radha Start: 08-04-2023 End: 12-28-2023 take 1 tablet by mouth once daily Amlodipine 5 mg tablet Discontinued 5 MG PO Daily August 04, 2023 10:01am December 28, 2023 7:40am Start: 05-31-2023 End: 08-04-2023 take 1 tablet by mouth once daily Amlodipine 5 mg tablet Discontinued 0 .ROUTE .COMPLEX May 31, 2023 4:07pm August 04, 2023 10:01am TAKE 1 TABLET BY MOUTH DAILY FOR 30 DAYS Start: 05-31-2023 End: 05-31-2023 take 1 tablet by mouth once daily Amlodipine 5 mg tablet Discontinued 5 MG PO Daily May 30, 2023 11:00pm May 31, 2023 4:07pm Start: 12-11-2021 amLODIPine (NO RVASC) 2.5 mg tablet Amlodipine Active 5 MG PO Daily December 11, 2021 12:00am 12/11/2021 Active Start: 12-11-2021 amLODIPine (NO RVASC) 2.5 mg tablet Amlodipine Active 5 MG PO Daily December 11, 2021 12:00am 0 12/11/2021 Active Start: 12-11-2021 End: 05-08-2023 take 2 tablets by mouth once daily Amlodipine 2.5 mg tablet Discontinued 5 MG PO Daily December 10, 2021 11:00pm May 08, 2023 12:04pm Start: 12-11-2021 End: 05-08-2023 take 5 mg by mouth once daily Amlodipine Discontinued 5 MG PO Daily December 11, 2021 12:00am May 08, 2023 1:04pm Start: 05-25-2019 End: 05-21-2023 take 1 tablet by mouth once daily Amlodipine 5 mg tablet Discontinued 5 MG PO Daily May 08, 2023 12:02pm May 21, 2023 11:03am Comment on above: Amlodipine Active 5 MG PO Daily December 11, 2021 12:00am amoxicillin 875 mg / clavulanate 125 mg oral tablet (14 sources) Penicillin-class Antibacterial Start: End: take 1 tablet by mouth twice daily Amoxicillin-Pot Clavulanate 875-125 mg tablet Discontinued 1 TAB PO Twice daily May 15, 2023 12:00am May 21, 2023 11:00am Start: 02-19-2023 take 1 tablet by marisela [...] at bedtime. trimethoprim 100 mg oral tablet (13 sources) Dihydrofolate Reductase Inhibitor Antibacterial Start: 12-15-2021 End: 05-21-2023 take 1 tablet by mouth twice daily Trimethoprim 100 mg tablet Discontinued 100 MG PO Twice daily December 16, 2021 11:00pm May 21, 2023 11:03am Comment on above: Take 1 tablet by [...] to other specified organisms Episodic Cardiac dysrhythmias (4 sources) Ventricular premature complex; Translations: [Ventricular premature depolarization] Onset: 06-23-2016 01-31-2024 Chronic Chronic kidney disease (20 sources) Chronic kidney disease stage 3; Translations: [Chronic kidney disease, stage 3 unspecified] Onset: 08-23-2014 06-20-2023 Chronic Chronic ulcer of skin (16 sources) Ulcer of foot; Translations: [Non-pressure chronic ulcer of other part of unspecified foot with unspecified severity] Onset: 10-02-2009 10-02-2009 Chronic Complication of device; implant or graft (12 sources) Disorder of urethral catheter; Translations: [Breakdown (mechanical) of indwelling urethral catheter, initial encounter] 12-11-2021 Episodic Comment on above: Problem List clean-u p per request of Phys. EHR Cmte Deficiency and other anemia (1 source) Anemia [...] of urination] Onset: 11-07-2021 Resolved: 08-28-2019 Episodic Comment on above: Problem List clean-u p per request of Phys. EHR Cmte Heart valve disorders (2 sources) Nonrheumatic aortic (valve) stenosis; Translations: [Mild aortic valve stenosis] 01-31-2024 Chronic Heart valve disorders (3 sources) Heart murmur; Translations: [Cardiac murmur, unspecified] 12-28-2023 Episodic Hyperplasia of prostate (20 sources) Benign prostatic hypertrophy with outflow obstruction; Translations: [Benign prostatic hyperplasia with lower urinary tract symptoms] Onset: 03-23-2016 Chronic Immunizations and screening for infectious disease (1 source) Vaccination given; Translations: [Encounter for immunization] Episodic Infective arthritis and osteomyelitis (except that caused by tuberculosis or sexually transmitted disease) (10 sources) Osteomyelitis of right foot; Translations: [Osteomyelitis, [...] sources) H/O: high risk medication; Translations: [Other penit[facility]iary (current) drug therapy] Episodic Other aftercare (1 source) Long-term current use of drug therapy; Translations: [Other penitentiary (current) drug therapy] Episodic Other circulatory disease [...] Episodic Other diseases of veins and lymphatics (8 sources) Venous insufficiency of leg; Translations: [Venous insufficiency (chronic) (peripheral)] 05-20-2023 Episodic Other diseases of veins and lymphatics (8 sources) Stasis dermatitis; Translations: [Venous insufficiency (chronic) (peripheral)] 05-21-2023 Episodic Other diseases of veins and lymphatics (16 sources) Venous insufficiency (chronic) (peripheral); Translations: [Venous [...] Chronic Other nutritional; endocrine; and metabolic disorders (8 sources) Overweight; Translations: [Overweight] Episodic Other nutritional; endocrine; and metabolic disorders (8 sources) Overweight; Translations: [Overweight] Onset: 10-20-2021 06-23-2023 [...] eye] Episodic Skin and subcutaneous tissue infections (14 sources) Cellulitis of toe of left foot; [...] Drug therapy finding 11-14-2019 Urinary tract infections (6 sources) Acute cystitis with hematuria; Translations: [Urinary [...] 08-28-2019 Episodic Other aftercare (1 source) 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; Translations: [[employer] CURRENT DRUG THERAPY] Onset: 10-22-2021 Episodic Other [...] organisms] Onset: 10-29-2017 Episodic Residual codes; unclassified (14 sources) Postoperative state; Translations: [Other specified postprocedural [...] Test Name Value Interpretation Reference Range Facility Bacteria Ur Culton 4 Bacteria identified Cx Nom (U) CULTURE, URINE: No growth (<1,000 CFU/ml) Normal [facility] Comment on above: Performed By: #### 6 30-4 #### [facility] CLIA [id number] [address] [place] [address] [place] Urinalysis complete panel (U )on 02-11-2024 Bacteria LM.HPF (Urine sed) [#/Area] Negative Normal Negative [facility] Comment on above: Order Comment: Speci men Type: URINE SPECIMEN Ordering Facility: [facility] Address: [address] [place] [address] Performed By: #### 2 4356-8 #### [facility] CLIA [id number] [address] [place] [address] [place] Bilirubin Ql (U) Negative Normal Negative [facility] Comment on above: Order Comment: Speci men Type: URINE SPECIMEN Ordering Facility: [facility] Address: [address] [place] [address] Performed By: #### 2 4356-8 #### [facility] CLIA [id number] [address] [place] [address] [place] Clarity (Unsp spec) Clear Normal Clear [facility] Comment on above: Order Comment: Speci men Type: URINE SPECIMEN Ordering Facility: [facility] Address: [address] [place] [address] Performed By: #### 2 4356-8 #### [facility] CLIA [id number] [address] [place] [address] [place] Color (U) Yellow Normal Yellow [facility] Comment on above: Order Comment: Speci men Type: URINE SPECIMEN Ordering Facility: [facility] Address: [address] [place] [address] Performed By: #### 2 4356-8 #### [facility] CLIA [id number] [address] [place] [address] [place] Epithelial cells LM.HPF (Urine sed) [#/Area] None Seen Normal [facility] Comment on above: Order Comment: Speci men Type: URINE SPECIMEN Ordering Facility: [facility] Address: [address] [place] [address] Performed By: #### 2 4356-8 #### [facility] CLIA [id number] [address] [place] [address] [place] Glucose Test strip (U) [Mass/Vol] Negative Normal Negative [facility] Comment on above: Order Comment: Speci men Type: URINE SPECIMEN Ordering Facility: [facility] Address: [address] [place] [address] Performed By: #### 2 4356-8 #### [facility] CLIA [id number] [address] [place] [address] [place] Hemoglobin Ql (U) Negative Normal Negative [facility] Comment on above: Order Comment: Speci men Type: URINE SPECIMEN Ordering Facility: [facility] Address: [address] [place] [address] Performed By: #### 2 4356-8 #### [facility] CLIA [id number] [address] [place] [address] [place] Hyaline casts (Urine sed) [#/Area] 0 /[LPF] Normal 0 /LPF [facility] Comment on above: Order Comment: Speci men Type: URINE SPECIMEN Ordering Facility: [facility] Address: [address] [place] [address] Performed By: #### 2 4356-8 #### [facility] CLIA [id number] [address] [place] [address] [place] Ketones Ql (U) Negative Normal Negative [facility] Comment on above: Order Comment: Speci men Type: URINE SPECIMEN Ordering Facility: [facility] Address: [address] [place] [address] Performed By: #### 2 4356-8 #### [facility] CLIA [id number] [address] [place] [address] [place] Leukocyte esterase Test strip Ql (U) Negative Normal Negative [facility] Comment on above: Order Comment: Speci men Type: URINE SPECIMEN Ordering Facility: [facility] Address: [address] [place] [address] Performed By: #### 2 4356-8 #### [facility] CLIA [id number] [address] [place] [address] [place] Nitrite Ql (U) Negative Normal Negative [facility] Comment on above: Order Comment: Speci men Type: URINE SPECIMEN Ordering Facility: [facility] Address: [address] [place] [address] Performed By: #### 2 4356-8 #### [facility] CLIA [id number] [address] [place] [address] [place] pH (U) 5.5 [pH] Normal <8.5 [facility] Comment on above: Order Comment: Speci men Type: URINE SPECIMEN Ordering Facility: [facility] Address: [address] [place] [address] Performed By: #### 2 4356-8 #### [facility] CLIA [id number] [address] [place] [address] [place] Protein (U) [Mass/Vol] Negative Normal Negative [facility] Comment on above: Order Comment: Speci men Type: URINE SPECIMEN Ordering Facility: [facility] Address: [address] [place] [address] Performed By: #### 2 4356-8 #### [facility] CLIA [id number] [address] [place] [address] [place] RBC LM.HPF (Urine sed) [#/Area] 0-2 /HPF Normal 0-2 /HPF [facility] Comment on above: Order Comment: Speci men Type: URINE SPECIMEN Ordering Facility: [facility] Address: [address] [place] [address] Performed By: #### 2 4356-8 #### [facility] CLIA [id number] [address] [place] [address] [place] Specific gravity (U) [Rel density] 1.016 Normal 1.005-1.030 [facility] Comment on above: Order Comment: Speci men Type: URINE SPECIMEN Ordering Facility: [facility] Address: [address] [place] [address] Performed By: #### 2 4356-8 #### [facility] CLIA [id number] [address] [place] [address] [place] Urobilinogen Ql (U) 0.2 EU/dL Normal 0.2-1.0 EU/dL [facility] Comment on above: Order Comment: Speci men Type: URINE SPECIMEN Ordering Facility: [facility] Address: [address] [place] [address] Performed By: #### 2 [id number] #### [facility] CLIA [id number] [address] [place] [address] [place] WBC LM.HPF (Urine sed) [#/Area] 0-5 /HPF Normal 0-5 /HPF [facility] Comment on above: Order Comment: Speci men Type: URINE SPECIMEN Ordering Facility: [facility] Address: [address] [place] [address] Performed By: #### 2 [id number] #### [facility] CLIA [id number] [address] [place] [address] [place] CNOVon 02-08-2024 CNOV Office Visit (UROLLN) -------- NORBERTO [place] ([id number]) 1940 M Date Time Provider Department 02/08/24 8:30 AM LETICIA MILIAN During your visit today, we recorded the following information about you: Pulse Blood pressure Weight 54/minute 119/58 102.1 kg Leticia Milian, WINDER HAND.COMPUTATIONAL SCIENTIST 02/08/2024 9:06 AM Signed Norberto [place] [address] [facility] [address] HISTORY OF PRESENT ILLNESS: Seen 08/04/23 for BPH w obs/luts, UTI Pt is presently on penitentiary antibiotic due to infection in toes that went to bone Stated that urinary symptoms have resolved with treatment. ROSAMARIA 11/10/21 - 10 gm, rubbery, no nodules AUA= 10 QOL 2 PVR=36 ML cysto 11-12-21 = 2.5 cm NON [...] bladder infection Coming for BPH w obs/luts, UTI, incomplete emptying (new finding today 02/08/24) Denies gross hematuria Denies burning with urination Pt stated that is having issue with constipation last BM a couple days ago ZRL=483 ML Location: BPH w obs/luts, UTI Pain Character: none Severity Scale: see AUA score, see lab Duration: BPH w obs/luts, UTI [facility] SYMPTOMS SCORE. 1. INCOMPLETE EMPTYING 0 2. FREQUENCY 0 3. INTERMITTENCY 4 4. URGENCY 0 5. WEAK STREAM 3 6. STRAINING 4 7. NOCTURIA 2 TOTAL SCORE 13 QOL 2 No past medical history on file. No past surgical history on file. No family history on file. Social History Tobacco Use Smoking status: Former Current packs/day: 0.00 Average packs/day: 1.5 packs/day for 14.0 years (21.0 ttl pk-yrs) Types: Cigarettes Start date: 03/15/1957 Quit date: 03/15/1971 Years since quittin.9 Smokeless tobacco: Never Substance Use Topics Alcohol use: Yes Comment: social MEDICATIONS: Current Outpatient Medications Medication Sig apixaban (ELIQUIS) 2.5 mg tab(s) 5 mg two times a day. metoprolol succinate ER (TOPROL XL) 25 mg 24 hr tablet Take 1 tablet by mouth every afternoon. tamsulosin (FLOMAX) 0.4 mg Take 1 capsule [...] daily. lisinopril(PRINIVI L 10 MG TAB) Take 20 mg by mouth once daily. TURMERIC ORAL Take by mouth. multivitamin (MULTIPLE VITAMINS ORAL) Take by mouth. vit A/vit C/vit E/zinc/copper (PRESERVISION AREDS ORAL) Take by mouth. cephALEXin (KEFLEX) 500 mg capsule Take 1 capsule by mouth every 12 hours. (Patient not taking: Reported on 02/08/2024) doxycycline hyclate (VIBRAMYCIN) 100 mg capsule (Patient not taking: Reported on 01/20/2022) amLODIPine (NORVASC) 2.5 mg tablet Amlodipine Active 5 MG PO Daily December 11, 2021 12:00am (Patient not taking: Reported on 02/02/2023) No current facility-administe red medications for this [...] from the gums. PHYSICAL EXAM: VITALS: BP 119/58 Pulse (!) 54 Wt 102.1 kg (225 lb) BMI 28.12 kg/m? GENERAL: Alert, oriented and in no distress. HEAD: Conjuctiva: no palor Sclera: no jaundice NECK: No enlarged thyroid, no palpable lymph nodes, and no engorged neck veins. CHEST: Bilateral symetrical, resp easy non labored ABDOMEN: Soft, non tender with no masses or organomegaly. No CVA tenderness. EXTREMITIES: No le (more content not included)... Normal [facility] Basophils Auto (Bld) [#/Vol] on 01-30-2024 Basophils (Bld) [#/Vol] Automated basoph il count 0.0-0.1 [facility] Basophils/100 WBC Auto (Bld) on 01-30-2024 Basophils/100 WBC (Bld) Automated basoph il % 0.2-2.0 [facility] Eosinophils/100 WBC Auto (Bl d)on 01-30-2024 Eosinophils/100 WBC (Bld) Automated eosinophil % 0.9-7.0 [facility] Erythrocyte distribution wid th Auto (RBC) [Ratio]on 01-30-2024 Erythrocyte distribution width (RBC) [Ratio] Erythrocyte distribution width [Ratio] by Automated count 11.0-15.0 [facility] Estimated glomerular filtrat ion rate (GFR) non- Americanon 01-30-2024 GFR/1.73 sq M.predicted among non-blacks MDRD (S/P/Bld) [Vol rate/Area] Estimated glomerular filtration rate (GFR) non- Low >=60 mL/min/1.73m 2 [facility] Globulin Calc (S) [Mass/Vol] on 01-30-2024 Globulin (S) [Mass/Vol] Serum globulin measurement by calculation (mass/volume) [facility] Hematocrit Auto (Bld) [Volum e fraction]on 01-30-2024 Hematocrit (Bld) [Volume fraction] Hematocrit [Volume Fraction] of Blood by Automated count Low 42.0-54.0 [facility] Hemoglobin [Mass/volume] in Bloodon 01-30-2024 Hemoglobin (Bld) [Mass/Vol] Hemoglobin [Mass/volume] in Blood 14.0-18.0 [facility] INR in Platelet poor plasma by Coagulation assayon 01-30-2024 INR Coag (PPP) [Relative time] INR in Platelet poor plasma by Coagulation assay [facility] Comment on above: DESIRED INR:2.0-3.0 CONDITIONS NOT LISTED BELOW2.5-3.5 FOR PROSTHETIC HEART VALVE REPLACEMENT2.5-3.5 RECURRENT THROMBOSIS Laboratory - Chemistry and C hemistry - challengeon 01-30-2024 Albumin [Mass/Vol] 3.9 g/dL 3.4-5.0 [facility] ALP [Catalytic activity/Vol] 79 U/L 46-116 [facility] ALT [Catalytic activity/Vol] 25 U/L 16-63 [facility] AST [Catalytic activity/Vol] 25 U/L 15-37 [facility] Bilirubin [Mass/Vol] 0.4 mg/dL 0.2-1.0 [facility] Calcium [Mass/Vol] 9.3 mg/dL 8.5-10.1 [facility] Chloride [Moles/Vol] 103 mmol/L 98-107 [facility] CO2 [Moles/Vol] 24.9 mmol/L 21.0-32.0 [facility] Creatinine [Mass/Vol] 1.32 mg/dL High 0.70-1.30 [facility] GFR/1.73 sq M.predicted MDRD (S/P/Bld) [Vol rate/Area] mL/min/{1.73_m2} >=60 mL/min/1.73m 2 [facility] Glucose [Mass/Vol] 113 mg/dL High 74-106 [facility] Magnesium [Mass/Vol] 2.2 mg/dL 1.8-2.4 [facility] Potassium [Moles/Vol] 4.5 mmol/L 3.5-5.1 [facility] Protein [Mass/Vol] 7.3 g/dL 6.4-8.2 [facility] Sodium [Moles/Vol] 138 mmol/L 136-145 [facility] Urea nitrogen [Mass/Vol] 18.0 mg/dL 7.0-18.0 [facility] Urea nitrogen/Creatinine [Mass ratio] 13.6 mg/mg [facility] Laboratory - Hematology and Cell countson 01-30-2024 Immature granulocytes/100 WBC (Bld) 0.5 % 0.0-0.5 [facility] Leukocytes [#/volume] correc marshal for nucleated erythrocytes in Blood by Automated counon 01-30-2024 WBC corrected for nucl RBC Auto (Bld) [#/Vol] Leukocytes [#/volume] corrected for nucleated erythrocytes in Blood by Automated coun 4.0-11.0 [facility] Lymphocytes Auto (Bld) [#/Vo l]on 01-30-2024 Lymphocytes (Bld) [#/Vol] Lymphocytes [#/volume] in Blood by Automated count 1.2-3.8 [facility] Lymphocytes/100 WBC Auto (Bl d)on 01-30-2024 Lymphocytes/100 WBC (Bld) Lymphocytes/100 leukocytes in Blood by Automated count 20.5-60.0 [facility] MCH Auto (RBC) [Entitic mass ]on 01-30-2024 MCH (RBC) [Entitic mass] MCH [Entitic mass] by Automated count 25.9-34.0 [facility] MCHC Auto (RBC) [Mass/Vol]on 01-30-2024 MCHC (RBC) [Mass/Vol] MCHC [Mass/volume] by Automated count High 29.9-35.2 [facility] MCV Auto (RBC) [Entitic vol] on 01-30-2024 MCV (RBC) [Entitic vol] MCV [Entitic volume] by Automated count 80.0-94.0 [facility] Monocytes Auto (Bld) [#/Vol] on 01-30-2024 Monocytes (Bld) [#/Vol] Automated blood monocyte count High 0.3-0.8 [facility] Monocytes/100 WBC Auto (Bld) on 01-30-2024 Monocytes/100 WBC (Bld) Automated monocy te % High 1.7-12.0 [facility] Neutrophils Auto (Bld) [#/Vo l]on 01-30-2024 Neutrophils (Bld) [#/Vol] Neutrophils [#/volume] in Blood by Automated count 1.4-6.5 [facility] Neutrophils/100 WBC Auto (Bl d)on 01-30-2024 Neutrophils/100 WBC (Bld) Automated neutrophil % 43.0-75.0 [facility] No Panel Informationon 01-29 Troponin I High Sensitivity 18.5 pg/mL 4.0-76.1 [facility] Comment on above: CUT-OFF POINTS HAVE BEEN ESTABLISHED BASED ON THE FOURTHUNIVERSAL DEFINITION OF MYOCARDIAL INFARCTION. THE UPPERREFERENCE LIMIT (URL) OF TROPONIN, DEFINED THE 99THPERCENTILE OF cTnI DISTRIBUTION IN A REFERENCE POPULATION,HAS BEEN CONFIRMED THE DECISION THRESHOLD FOR MIDIAGNOSIS.99TH PERCENTILE = 76.2 PG/MLNOTE: HIGH-SENSITIVITY TROPONIN ASSAY IS NOT INTENDED TO BEUSED IN ISOLATION BUT SHOULD BE INTERPRETED IN CONJUNCTIONWITH OTHER DIAGNOSTIC AND CLINICAL INFORMATION. Eosinophils # (Auto) 0.2 10 3/uL 0.0-0.7 [facility] Immature Granulocyte # (Auto) 0.05 10 3/uL High 0.00-0.03 [facility] Platelet mean volume Auto (B ld) [Entitic vol]on 01-30-2024 Platelet mean volume (Bld) [Entitic vol] Platelet mean volume [Entitic volume] in Blood by Automated count Low 9.5-13.5 [facility] Platelets Auto (Bld) [#/Vol] on 01-30-2024 Platelets (Bld) [#/Vol] Platelets [#/volume] in Blood by Automated count 150-450 [facility] Prothrombin time (PT)on 01-13 PT Coag (PPP) [Time] Prothrombin time (PT) 9.0-11.6 [facility] RBC Auto (Bld) [#/Vol]on RBC (Bld) [#/Vol] Erythrocytes [#/volume] in Blood by Automated count Low 4.70-6.10 [facility] Serum or plasma albumin/glob ulin mass ratioon 01-30-2024 Albumin/Globulin [Mass ratio] Serum or plasma albumin/globulin mass ratio [facility] Serum or plasma anion gap de terminationon 01-30-2024 Anion gap [Moles/Vol] Serum or plasma anion gap determination [facility] Basophils Auto (Bld) [#/Vol] on 12-30-2023 Basophils (Bld) [#/Vol] Automated basoph il count 0.0-0.1 [facility] Basophils/100 WBC Auto (Bld) on 12-30-2023 Basophils/100 WBC (Bld) Automated basoph il % 0.2-2.0 [facility] Cholesterol in LDL Calc [Mas s/Vol]on 12-30-2023 Cholesterol in LDL [Mass/Vol] Cholesterol in LDL [Mass/volume] in Serum or Plasma by calculation [facility] Comment on above: <100 mg/dl [id number] 0-129 mg/dl NEAR OR ABOVE [id number] mg/dl BORDERLINE [id number] mg/dl HIGH>190 mg/dl VERY HIGH Cholesterol in VLDL Calc [Ma ss/Vol]on 12-30-2023 Cholesterol in VLDL [Mass/Vol] Cholesterol in VLDL [Mass/volume] in Serum or Plasma by calculation [facility] Eosinophils/100 WBC Auto (Bl d)on 12-30-2023 Eosinophils/100 WBC (Bld) Automated eosinophil % 0.9-7.0 [facility] Erythrocyte distribution wid th Auto (RBC) [Ratio]on 12-30-2023 Erythrocyte distribution width (RBC) [Ratio] Erythrocyte distribution width [Ratio] by Automated count 11.0-15.0 [facility] Estimated glomerular filtrat ion rate (GFR) non- Americanon 12-30-2023 GFR/1.73 sq M.predicted among non-blacks MDRD (S/P/Bld) [Vol rate/Area] Estimated glomerular filtration rate (GFR) non- Low >=60 mL/min/1.73m 2 [facility] Globulin Calc (S) [Mass/Vol] on 12-30-2023 Globulin (S) [Mass/Vol] Serum globulin measurement by calculation (mass/volume) [facility] Glucose mean value [Mass/vol ume] in Blood Estimated from glycated hemoglobinon 12-30-2023 Average glucose Estimated from glycated hemoglobin (Bld) [Mass/Vol] Glucose mean value [Mass/volume] in Blood Estimated from glycated hemoglobin [facility] Hematocrit Auto (Bld) [Volum e fraction]on 12-30-2023 Hematocrit (Bld) [Volume fraction] Hematocrit [Volume Fraction] of Blood by Automated count Low 42.0-54.0 [facility] Hemoglobin [Mass/volume] in Bloodon 12-30-2023 Hemoglobin (Bld) [Mass/Vol] Hemoglobin [Mass/volume] in Blood 14.0-18.0 [facility] Laboratory - Chemistry and C hemistry - challengeon 12-30-2023 Albumin [Mass/Vol] 3.6 g/dL 3.4-5.0 [facility] ALP [Catalytic activity/Vol] 58 U/L 46-116 [facility] ALT [Catalytic activity/Vol] 28 U/L 16-63 [facility] AST [Catalytic activity/Vol] 21 U/L 15-37 [facility] Bilirubin [Mass/Vol] 0.7 mg/dL 0.2-1.0 [facility] Calcium [Mass/Vol] 8.8 mg/dL 8.5-10.1 [facility] Chloride [Moles/Vol] 102 mmol/L 98-107 [facility] Cholesterol [Mass/Vol] 168 mg/dL <=200 [facility] Cholesterol in HDL [Mass/Vol] 55 mg/dL 40-60 [facility] Comment on above: > or =60 mg/dl - LOW CARDIOVASCULAR RISK<40 mg/dl - HIGH CARDIOVASCULAR RISK CO2 [Moles/Vol] 27.5 mmol/L 21.0-32.0 [facility] Creatinine [Mass/Vol] 1.44 mg/dL High 0.70-1.30 [facility] GFR/1.73 sq M.predicted MDRD (S/P/Bld) [Vol rate/Area] 57 mL/min/{1.73_m2} Low >=60 mL/min/1.73m 2 [facility] Glucose [Mass/Vol] 101 mg/dL 74-106 [facility] Potassium [Moles/Vol] 4.4 mmol/L 3.5-5.1 [facility] Protein [Mass/Vol] 6.7 g/dL 6.4-8.2 [facility] Sodium [Moles/Vol] 138 mmol/L 136-145 [facility] Triglyceride [Mass/Vol] 134 mg/dL <=150 [facility] Urea nitrogen [Mass/Vol] 22.0 mg/dL High 7.0-18.0 [facility] Urea nitrogen/Creatinine [Mass ratio] 15.3 mg/mg [facility] Laboratory - Hematology and Cell countson 12-30-2023 HbA1c (Bld) [Mass fraction] 5.9 % 4.5-6.2 [facility] Comment on above: ADA RECOMMENDED LIMI T 4.0 - 6.0ADA THERAPEUTIC TARGET < 7.0ACTION SUGGESTED> 7.0 Immature granulocytes/100 WBC (Bld) 0.5 % 0.0-0.5 [facility] Leukocytes [#/volume] correc marshal for nucleated erythrocytes in Blood by Automated counon 12-30-2023 WBC corrected for nucl RBC Auto (Bld) [#/Vol] Leukocytes [#/volume] corrected for nucleated erythrocytes in Blood by Automated coun 4.0-11.0 [facility] Lymphocytes Auto (Bld) [#/Vo l]on 12-30-2023 Lymphocytes (Bld) [#/Vol] Lymphocytes [#/volume] in Blood by Automated count 1.2-3.8 [facility] Lymphocytes/100 WBC Auto (Bl d)on 12-30-2023 Lymphocytes/100 WBC (Bld) Lymphocytes/100 leukocytes in Blood by Automated count 20.5-60.0 [facility] MCH Auto (RBC) [Entitic mass ]on 12-30-2023 MCH (RBC) [Entitic mass] MCH [Entitic mass] by Automated count 25.9-34.0 [facility] MCHC Auto (RBC) [Mass/Vol]on 12-30-2023 MCHC (RBC) [Mass/Vol] MCHC [Mass/volume] by Automated count 29.9-35.2 [facility] MCV Auto (RBC) [Entitic vol] on 12-30-2023 MCV (RBC) [Entitic vol] MCV [Entitic volume] by Automated count 80.0-94.0 [facility] Microalbumin [Mass/volume] i n Urineon 12-30-2023 Albumin DL <= 20 mg/L (U) [Mass/Vol] Microalbumin [Mass/volume] in Urine <=30.0 [facility] Monocytes Auto (Bld) [#/Vol] on 12-30-2023 Monocytes (Bld) [#/Vol] Automated blood monocyte count High 0.3-0.8 [facility] Monocytes/100 WBC Auto (Bld) on 12-30-2023 Monocytes/100 WBC (Bld) Automated monocy te % High 1.7-12.0 [facility] Neutrophils Auto (Bld) [#/Vo l]on 12-30-2023 Neutrophils (Bld) [#/Vol] Neutrophils [#/volume] in Blood by Automated count 1.4-6.5 [facility] Neutrophils/100 WBC Auto (Bl d)on 12-30-2023 Neutrophils/100 WBC (Bld) Automated neutrophil % 43.0-75.0 [facility] No Panel Informationon 12-29 Eosinophils # (Auto) 0.2 10 3/uL 0.0-0.7 [facility] Immature Granulocyte # (Auto) 0.04 10 3/uL High 0.00-0.03 [facility] Urine Random Creatinine 101.28 mg/dL 20.00-300. 00 [facility] Platelet mean volume Auto (B ld) [Entitic vol]on 12-30-2023 Platelet mean volume (Bld) [Entitic vol] Platelet mean volume [Entitic volume] in Blood by Automated count Low 9.5-13.5 [facility] Platelets Auto (Bld) [#/Vol] on 12-30-2023 Platelets (Bld) [#/Vol] Platelets [#/volume] in Blood by Automated count 150-450 [facility] RBC Auto (Bld) [#/Vol]on RBC (Bld) [#/Vol] Erythrocytes [#/volume] in Blood by Automated count Low 4.70-6.10 [facility] Serum or plasma albumin/glob ulin mass ratioon 12-30-2023 Albumin/Globulin [Mass ratio] Serum or plasma albumin/globulin mass ratio [facility] Serum or plasma anion gap de terminationon 12-30-2023 Anion gap [Moles/Vol] Serum or plasma anion gap determination [facility] Serum or plasma total choles terol/high density lipoprotein (HDL) cholesterol mass z[place] 12-30-2023 Cholesterol.total/Carri sterol in HDL [Mass ratio] Serum or plasma total cholesterol/high density lipoprotein (HDL) cholesterol mass rat [facility] Comment on above: 3.3 - 4.4 LOW RISK4. 4 - 7.1 AVERAGE RISK7.1 - 11.0 MODERATE RISK>11.0 HIGH RISK Urine microalbumin/creatinin e mass ratioon 12-30-2023 Albumin/Creatinine DL <= 20 mg/L (U) [Mass ratio] Urine microalbumin/creat inine mass ratio 0.0-29.9 [facility] Comment on above: NO MICROALBUMINURIA 0-29 MG/GCLINICAL MICROALBUMINURIA 30-300 MG/GMACROALBUMINURIA >300 MG/G CHEMISTRYOrdered By: SYSTEM SYSTEM on 12-17-2023 CRP [Mass/Vol] 0.2 mg/dL Normal <=1.9mg/dL Remisol Ch em CRPon 12-17-2023 CRP [Mass/Vol] 0.2 mg/dL Normal <=1.9 [facility] Comment on above: Performed By: #### 2 [id number] #### [facility] [address] [place] [address] [facility] [place] 2023 Platelets (Bld) [#/Vol] 239.0 10*3/uL [facility] Original Ordering Provider: DO Sterling MCQUEENISYCONCHITA [facility] HEMATOLOGYOrdered By: Nat Aldridge on 12-17-2023 ESR (Bld) [Velocity] 4 mm/h Normal 0 - 19 mm/hr [facility] HemeAutoSS HEMATOLOGYOrdered By: SYSTEM SYSTEM on 12-17-2023 Platelet 239.0 E9/L Normal 150.0 - 500.0 E9/L Remisol Heme Ophthalmic OCT panelon 12-16 [facility] Right Eye Images reviewed and [...] layer (NFL) thinning left eye (OS). Worsened. [facility] Radiology Study observation (narrative) [facility] Optical coherence tomography study reporton 12-17-2023 [facility] Radiology Study observation (narrative) [facility] Platelet Counton 12-17-2023 Platelet 239.0 E9/L Normal 150.0-500.0 [facility] Comment on above: Performed By: #### 2 [id number] #### [facility] [address] [place] [address] Sed Rate Automatedon 024 ESR (Bld) [Velocity] 4 mm/h Normal 0-19 [facility] Comment on above: Performed By: #### 1 [id number] #### [facility] [address] [place] [address] CNOVon 08-04-2023 CNOV Office Visit (UROLLN) -------- NORBERTO [place] ([id number]) 1940 M Date Time Provider Department 08/04/23 9:00 AM LETICIA MILIAN During your visit today, we recorded the following information about you: Pulse Blood pressure Weight 65/minute 130/56 99.8 kg Leticia Milian, WINDER HAND.COMPUTATIONAL SCIENTIST 08/04/2023 9:23 AM Signed Norberto Mccoy [place] [address] [facility] [id number] HISTORY OF PRESENT ILLNESS: Seen 02/02/23 for [...] finding today 08/04/23) Pt is presently on rodent 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 antibiotic due to infection in toes that went to bone Stated that urinary symptoms have resolved with treatment. PVR=36 ML UA 07/26/23=trace leuk esterase Culture 07/26/23=<10,000 CFU/ml Lactose positive gram negative bacilli Abnormal A1C 07/26/23=6.4 Location: BPH w obs/luts, UTI Pain Character: none Severity Scale: see AUA score, see lab Duration: BPH w obs/luts, UTI [facility] SYMPTOMS SCORE. 1. INCOMPLETE EMPTYING [...] (Diagnostic Possibilitie (more content not included)... Normal [facility] Bacteria Ur Culton 4 Bacteria identified Cx Nom (U) ORGANISM ID: 1 <10,000 CFU/ml Lactose positive gram negative bacilli Insignificant colony count. No further workup. Normal [facility] Comment on above: Performed By: #### 6 30-4 #### [facility] CLIA [id number] [address] [place] [address] [place] Glucose mean value [Mass/vol ume] in Blood Estimated from glycated hemoglobinon 07-26-2023 Average glucose Estimated from glycated hemoglobin (Bld) [Mass/Vol] 137 mg/dL [facility] Comment on above: eAG: (Estimated aver age glucose) is a calculated value from HgbA1c and is risk control representative of the average blood glucose level in the last 2-3 month period. HbA1c (Bld)on 07-26-2023 Average glucose Estimated from glycated hemoglobin (Bld) [Mass/Vol] 137 mg/dL Normal [facility] Comment on above: Order Comment: Speci men Type: BLOOD SPECIMEN Ordering Facility: Dr Saavedra and Dr Baptiste Office Address: [address] [place] [address] Result Comment: eAG: (Estimated average glucose) is a calculated value from HgbA1c and is risk control representative of the average blood glucose level in the last 2-3 month period. Performed By: #### 5 [id number] #### [facility] CLIA [id number] [address] [place] [address] [place] HbA1c (Bld) [Mass fraction] 6.4 % High 4.3-5.6 [facility] Comment on above: Order Comment: Domonique garcia Type: BLOOD SPECIMEN Ordering Facility: Dr Saavedra and Dr Baptiste Office Address: [address] [place] [address] Result Comment: [place] [employer] guidelines indicate that patients with HgbA1c in the range 5.7-6.4% are at increased risk for development of diabetes, and intervention by lifestyle modification may be beneficial. HgbA1c greater or equal to 6.5% is considered diagnostic of diabetes. Performed By: #### 5 [id number] #### [facility] CLIA [id number] [address] [place] [address] [place] Laboratory - Hematology and Cell countson 07-26-2023 HbA1c (Bld) [Mass fraction] 6.4 % High 4.3-5.6 [facility] Comment on above: [place] [employer]ation guidelines indicate that patients with HgbA1c in the range 5.7-6.4% are at increased risk for development of diabetes, and intervention by lifestyle modification may be beneficial. HgbA1c greater or equal to 6.5% is considered diagnostic of diabetes. UrinalysisOrdered By: Leticia Milian on 07-26-2023 Urinalysis complete panel (U) [facility] Urinalysis complete panel (U )on 07-26-2023 Bacteria LM.HPF (Urine sed) [#/Area] Negative Normal Negative [facility] Comment on above: Order Comment: Speci men Type: URINE SPECIMEN Ordering Facility: [facility] Address: [address] [place] [address] Performed By: #### 2 [id number] #### [facility] CLIA [id number] [address] [place] [address] [place] Bilirubin Ql (U) Negative Normal Negative [facility] Comment on above: Order Comment: Speci men Type: URINE SPECIMEN Ordering Facility: [facility] Address: [address] [place] [address] Performed By: #### 2 [id number] #### [facility] CLIA [id number] [address] [place] [address] [place] Clarity (Unsp spec) Clear Normal Clear [facility] Comment on above: Order Comment: Speci men Type: URINE SPECIMEN Ordering Facility: [facility] Address: [address] [place] [address] Performed By: #### 2 [id number] #### [facility] CLIA [id number] [address] [place] [address] [place] Color (U) Yellow Normal Yellow [facility] Comment on above: Order Comment: Speci men Type: URINE SPECIMEN Ordering Facility: [facility] Address: [address] [place] [address] Performed By: #### 2 4356-8 #### [facility] CLIA [id number] [address] [place] [address] [place] Epithelial cells LM.HPF (Urine sed) [#/Area] None Seen Normal [facility] Comment on above: Order Comment: Speci men Type: URINE SPECIMEN Ordering Facility: [facility] Address: [address] [place] [address] Performed By: #### 2 4356-8 #### [facility] CLIA [id number] [address] [place] [address] [place] Glucose Test strip (U) [Mass/Vol] Negative Normal Negative [facility] Comment on above: Order Comment: Speci men Type: URINE SPECIMEN Ordering Facility: [facility] Address: [address] [place] [address] Performed By: #### 2 4356-8 #### [facility] CLIA [id number] [address] [place] [address] [place] Hemoglobin Ql (U) Negative Normal Negative [facility] Comment on above: Order Comment: Speci men Type: URINE SPECIMEN Ordering Facility: [facility] Address: [address] [place] [address] Performed By: #### 2 4356-8 #### [facility] CLIA [id number] [address] [place] [address] [place] Hyaline casts (Urine sed) [#/Area] 1-3 /LPF Abnormal 0 /LPF [facility] Comment on above: Order Comment: Speci men Type: URINE SPECIMEN Ordering Facility: [facility] Address: [address] [place] [address] Performed By: #### 2 4356-8 #### [facility] CLIA [id number] [address] [place] [address] [place] Ketones Ql (U) Negative Normal Negative [facility] Comment on above: Order Comment: Speci men Type: URINE SPECIMEN Ordering Facility: [facility] Address: [address] [place] [address] Performed By: #### 2 4356-8 #### [facility] CLIA [id number] [address] [place] [address] [place] Leukocyte esterase Test strip Ql (U) Trace Abnormal Negative [facility] Comment on above: Order Comment: Speci men Type: URINE SPECIMEN Ordering Facility: [facility] Address: [address] [place] [address] Performed By: #### 2 4356-8 #### [facility] CLIA [id number] [address] [place] [address] [place] Nitrite Ql (U) Negative Normal Negative [facility] Comment on above: Order Comment: Speci men Type: URINE SPECIMEN Ordering Facility: [facility] Address: [address] [place] [address] Performed By: #### 2 4356-8 #### [facility] CLIA [id number] [address] [place] [address] [place] pH (U) 6.0 [pH] Normal <8.5 [facility] Comment on above: Order Comment: Speci men Type: URINE SPECIMEN Ordering Facility: [facility] Address: [address] [place] [address] Performed By: #### 2 4356-8 #### [facility] CLIA [id number] [address] [place] [address] [place] Protein (U) [Mass/Vol] Negative Normal Negative [facility] Comment on above: Order Comment: Speci men Type: URINE SPECIMEN Ordering Facility: [facility] Address: [address] [place] [address] Performed By: #### 2 4356-8 #### [facility] CLIA [id number] [address] [place] [address] [place] RBC LM.HPF (Urine sed) [#/Area] 0-2 /HPF Normal 0-2 /HPF [facility] Comment on above: Order Comment: Speci men Type: URINE SPECIMEN Ordering Facility: [facility] Address: [address] [place] [address] Performed By: #### 2 4356-8 #### [facility] CLIA [id number] [address] [place] [address] [place] Specific gravity (U) [Rel density] 1.016 Normal 1.005-1.030 [facility] Comment on above: Order Comment: Speci men Type: URINE SPECIMEN Ordering Facility: [facility] Address: [address] [place] [address] Performed By: #### 2 4356-8 #### [facility] CLIA [id number] [address] [place] [address] [place] Urobilinogen Ql (U) 0.2 EU/dL Normal 0.2-1.0 EU/dL [facility] Comment on above: Order Comment: Speci men Type: URINE SPECIMEN Ordering Facility: [facility] Address: [address] [place] [address] Performed By: #### 2 4356-8 #### [facility] CLIA [id number] [address] [place] [address] [place] WBC LM.HPF (Urine sed) [#/Area] 0-5 /HPF Normal 0-5 /HPF [facility] Comment on above: Order Comment: Speci men Type: URINE SPECIMEN Ordering Facility: [facility] Address: [address] [place] [address] Performed By: #### 2 4356-8 #### [facility] CLIA [id number] [address] [place] [address] [place] Urine culture routineOrdered By: Leticia Milian on 07-26-2023 Bacteria identified Cx Nom (U) [facility] Basophils Auto (Bld) [#/Vol] on 07-22-2023 Basophils (Bld) [#/Vol] 0.0 10 3/uL 0.0-0.1 [facility] Basophils/100 WBC Auto (Bld) on 07-22-2023 Basophils/100 WBC (Bld) 0.5 % 0.2-2.0 [facility] Eosinophils/100 WBC Auto (Bl d)on 07-22-2023 Eosinophils/100 WBC (Bld) 2.7 % 0.9-7.0 [facility] Erythrocyte distribution wid th Auto (RBC) [Ratio]on 07-22-2023 Erythrocyte distribution width (RBC) [Ratio] 12.2 % 11.0-15.0 [facility] Estimated glomerular filtrat ion rate (GFR) non- Americanon 07-22-2023 GFR/1.73 sq M.predicted among non-blacks MDRD (S/P/Bld) [Vol rate/Area] 49 mL/min/{1.73_m2} Low >=60 [facility] Hematocrit Auto (Bld) [Volum e fraction]on 07-22-2023 Hematocrit (Bld) [Volume fraction] 37.8 % Low 42.0-54.0 [facility] Hemoglobin [Mass/volume] in Bloodon 07-22-2023 Hemoglobin (Bld) [Mass/Vol] 12.6 g/dL Low 14.0-18.0 [facility] Yuri 07-22-2023 L Specimen: [id number] Received: 07/22/23 Status: MARY Jarrell Num: [id number] Spec Type: Surgical Subm Dr: Jhon Tejada DPM, MS Tissues: A DIGIT AMPUTATION (DISTAL RT FOURTH TOE) Procedures: HE/2, Gross/Micro L4, Decalcification Age/ Patient Sex Location Account Attending Physician Norberto [place] 83/M LABELL [id number] Jhon Tejada DPM, MS SPEC NUM: [id number] RECD: 07/22/23 STATUS: MARY JARRELL NUM: [id number] CAITY: 07/22/[address]: Jhon Tejada DPM, MS ENTERED: 07/22/[address]: Vandana,Lab SPEC TYPE: Surgical DEPT: GILBERTO ABEBE ORDERED: [...] history: Disruption of surgical wound CPT Codes 41480 -- -- Specimen: [id number] Received: 07/22/23 Status: MARY Jarrell Num: [id number] Spec Type: Surgical Subm Dr: Jhon Tejada,CHRISTIAN, MS Tissues: A DIGIT AMPUTATION (DISTAL RT FOURTH TOE) Procedures: KARAN, Gross/Micro L4, Decalcification -- Patient: Norberto [place] [id number] (Continued) -- Signed (signatu re on file) Gin Talley MD 07/26/23 1525 Normal [facility] Laboratory - Chemistry and C hemistry - challengeon 07-22-2023 Calcium [Mass/Vol] 9.0 mg/dL 8.5-10.1 [facility] Chloride [Moles/Vol] 98 mmol/L 98-107 [facility] CO2 [Moles/Vol] 27.0 mmol/L 21.0-32.0 [facility] Creatinine [Mass/Vol] 1.39 mg/dL High 0.70-1.30 [facility] GFR/1.73 sq M.predicted MDRD (S/P/Bld) [Vol rate/Area] 59 mL/min/{1.73_m2} Low >=60 [facility] Glucose [Mass/Vol] 120 mg/dL High 74-106 [facility] Potassium [Moles/Vol] 4.9 mmol/L 3.5-5.1 [facility] Sodium [Moles/Vol] 135 mmol/L Low 136-145 [facility] Urea nitrogen [Mass/Vol] 23.0 mg/dL High 7.0-18.0 [facility] Urea nitrogen/Creatinine [Mass ratio] 16.5 mg/mg [facility] Laboratory - Hematology and Cell countson 07-22-2023 Immature granulocytes/100 WBC (Bld) 0.5 % 0.0-0.5 [facility] Leukocytes [#/volume] correc marshal for nucleated erythrocytes in Blood by Automated counon 07-22-2023 WBC corrected for nucl RBC Auto (Bld) [#/Vol] 8.1 10 3/uL 4.0-11.0 [facility] Lymphocytes Auto (Bld) [#/Vo l]on 07-22-2023 Lymphocytes (Bld) [#/Vol] 2.3 10 3/uL 1.2-3.8 [facility] Lymphocytes/100 WBC Auto (Bl d)on 07-22-2023 Lymphocytes/100 WBC (Bld) 28.3 % 20.5-60.0 [facility] MCH Auto (RBC) [Entitic mass ]on 07-22-2023 MCH (RBC) [Entitic mass] 30.7 pg 25.9-34.0 [facility] MCHC Auto (RBC) [Mass/Vol]on 07-22-2023 MCHC (RBC) [Mass/Vol] 33.3 g/dL 29.9-35.2 [facility] MCV Auto (RBC) [Entitic vol] on 07-22-2023 MCV (RBC) [Entitic vol] 92.0 fL 80.0-94.0 [facility] Monocytes Auto (Bld) [#/Vol] on 07-22-2023 Monocytes (Bld) [#/Vol] 1.1 10 3/uL High 0.3-0.8 [facility] Monocytes/100 WBC Auto (Bld) on 07-22-2023 Monocytes/100 WBC (Bld) 13.7 % High 1.7-12.0 [facility] Neutrophils Auto (Bld) [#/Vo l]on 07-22-2023 Neutrophils (Bld) [#/Vol] 4.4 10 3/uL 1.4-6.5 [facility] Neutrophils/100 WBC Auto (Bl d)on 07-22-2023 Neutrophils/100 WBC (Bld) 54.3 % 43.0-75.0 [facility] No Panel Informationon 07-21 Eosinophils # (Auto) 0.2 10 3/uL 0.0-0.7 [facility] Immature Granulocyte # (Auto) 0.04 10 3/uL High 0.00-0.03 [facility] Platelet mean volume Auto (B ld) [Entitic vol]on 07-22-2023 Platelet mean volume (Bld) [Entitic vol] 8.2 fL Low 9.5-13.5 [facility] Platelets Auto (Bld) [#/Vol] on 07-22-2023 Platelets (Bld) [#/Vol] 268 10 3/uL 150-450 [facility] RBC Auto (Bld) [#/Vol]on RBC (Bld) [#/Vol] 4.11 10 6/uL Low 4.70-6.10 [facility] Serum or plasma anion gap de terminationon 07-22-2023 Anion gap [Moles/Vol] 14.9 mmol/L [facility] Yuri 07-12-2023 L Specimen: [id number] Received: 07/12/23 Status: MARY Rejomar Num: [id number] Spec Type: Surgical Subm Dr: Jhon Tejada,CHRISTIAN, MS Tissues: A DIGIT AMPUTATION (LT FOURTH TOE) B DIGIT AMPUTATION (RT FOURTH TOE) Procedures: HE/4, Gross/Micro L4/2, Decalcification/2 Age/ Patient Sex Location Account Attending Physician Norberto [place] 83/M LABELL [id number] Jhon Tejada DPM, MS SPEC NUM: [id number] RECD: 07/12/23 STATUS: YOAVSho JARRELL NUM: [id number] CAITY: 07/12/[address]: Jhon Tejada,CHRISTIAN, MS ENTERED: 07/12/[address] [facility] [address]: Vandana,Lab SPEC TYPE: Surgical DEPT: GILBERTO ABEBE ORDERED: [...] digit. The skin surface is -- Specimen: [id number] Received: 07/12/23 Status: MARY Jarrell Num: [id number] Spec Type: Surgical Subm Dr: Jhon Tejada,DPKaylin, MS Tissues: A DIGIT AMPUTATION (LT FOURTH TOE) B DIGIT AMPUTATION (RT FOURTH TOE) Procedures: HE/4, Gross/Micro L4/2, Decalcification/2 -- Patient: Norberto [place] [id number] (Continued) -- Specimen: [id number] Received: 07/12/23 (Continued) Gross Description (Continued) Signed (signatu re on file) Yisel Kaminski MD 07/13/231921 -- Specimen: [id number] Received: 07/12/23 Status: MARY Underwoodjomar Num: [id number] Spec Type: Surgical Subm Dr: Jhon Tejada,CHRISTIAN, MS Tissues: A DIGIT AMPUTATION (LT FOURTH TOE) B DIGIT AMPUTATION (RT FOURTH TOE) Procedures: HE/4, Gross/Micro L4/2, Decalcification/2 -- Patient: Norberto [place] [id number] (Continued) -- Specimen: [id number] Received: 07/12/23 (Continued) Gross Description (Continued) 90% [...] foot, osteomyelitis right foot TW CPT Codes 81278 X2 26280 X2 -- -- Specimen: [id number] Received: 07/12/23 Status: MARY Jarrell Num: [id number] Spec Type: Surgical Subm Dr: Jhon Tejada,DPKaylin, MS Tissues: A DIGIT AMPUTATION (LT FOURTH TOE) B DIGIT AMPUTATION (RT FOURTH TOE) Procedures: HE/4, Gross/Micro L4/2, Decalcification/2 -- Patient: Norberto [place] [id number] (Continued) -- Signed (signatu re on f (more content not included)... Normal [facility] Basophils Auto (Bld) [#/Vol] on 07-06-2023 Basophils (Bld) [#/Vol] 0.0 10 3/uL 0.0-0.1 [facility] Basophils/100 WBC Auto (Bld) on 07-06-2023 Basophils/100 WBC (Bld) 0.4 % 0.2-2.0 [facility] Eosinophils/100 WBC Auto (Bl d)on 07-06-2023 Eosinophils/100 WBC (Bld) 2.3 % 0.9-7.0 [facility] Erythrocyte distribution wid th Auto (RBC) [Ratio]on 07-06-2023 Erythrocyte distribution width (RBC) [Ratio] 12.4 % 11.0-15.0 [facility] Estimated glomerular filtrat ion rate (GFR) non- Americanon 07-06-2023 GFR/1.73 sq M.predicted among non-blacks MDRD (S/P/Bld) [Vol rate/Area] 59 mL/min/{1.73_m2} Low >=60 [facility] Hematocrit Auto (Bld) [Volum e fraction]on 07-06-2023 Hematocrit (Bld) [Volume fraction] 37.5 % Low 42.0-54.0 [facility] Hemoglobin [Mass/volume] in Bloodon 07-06-2023 Hemoglobin (Bld) [Mass/Vol] 12.5 g/dL Low 14.0-18.0 [facility] Laboratory - Chemistry and C hemistry - challengeon 07-06-2023 Calcium [Mass/Vol] 9.0 mg/dL 8.5-10.1 [facility] Chloride [Moles/Vol] 98 mmol/L 98-107 [facility] CO2 [Moles/Vol] 27.6 mmol/L 21.0-32.0 [facility] Creatinine [Mass/Vol] 1.17 mg/dL 0.70-1.30 [facility] GFR/1.73 sq M.predicted MDRD (S/P/Bld) [Vol rate/Area] mL/min/{1.73_m2} >=60 [facility] Glucose [Mass/Vol] 109 mg/dL High 74-106 [facility] Potassium [Moles/Vol] 5.1 mmol/L 3.5-5.1 [facility] Sodium [Moles/Vol] 134 mmol/L Low 136-145 [facility] Urea nitrogen [Mass/Vol] 23.0 mg/dL High 7.0-18.0 [facility] Urea nitrogen/Creatinine [Mass ratio] 19.7 mg/mg [facility] Laboratory - Hematology and Cell countson 07-06-2023 Immature granulocytes/100 WBC (Bld) 0.4 % 0.0-0.5 [facility] Leukocytes [#/volume] correc marshal for nucleated erythrocytes in Blood by Automated counon 07-06-2023 WBC corrected for nucl RBC Auto (Bld) [#/Vol] 8.0 10 3/uL 4.0-11.0 [facility] Lymphocytes Auto (Bld) [#/Vo l]on 07-06-2023 Lymphocytes (Bld) [#/Vol] 1.8 10 3/uL 1.2-3.8 [facility] Lymphocytes/100 WBC Auto (Bl d)on 07-06-2023 Lymphocytes/100 WBC (Bld) 22.3 % 20.5-60.0 [facility] MCH Auto (RBC) [Entitic mass ]on 07-06-2023 MCH (RBC) [Entitic mass] 30.7 pg 25.9-34.0 [facility] MCHC Auto (RBC) [Mass/Vol]on 07-06-2023 MCHC (RBC) [Mass/Vol] 33.3 g/dL 29.9-35.2 [facility] MCV Auto (RBC) [Entitic vol] on 07-06-2023 MCV (RBC) [Entitic vol] 92.1 fL 80.0-94.0 [facility] Monocytes Auto (Bld) [#/Vol] on 07-06-2023 Monocytes (Bld) [#/Vol] 1.2 10 3/uL High 0.3-0.8 [facility] Monocytes/100 WBC Auto (Bld) on 07-06-2023 Monocytes/100 WBC (Bld) 15.0 % High 1.7-12.0 [facility] Neutrophils Auto (Bld) [#/Vo l]on 07-06-2023 Neutrophils (Bld) [#/Vol] 4.8 10 3/uL 1.4-6.5 [facility] Neutrophils/100 WBC Auto (Bl d)on 07-06-2023 Neutrophils/100 WBC (Bld) 59.6 % 43.0-75.0 [facility] No Panel Informationon 07-05 Eosinophils # (Auto) 0.2 10 3/uL 0.0-0.7 [facility] Immature Granulocyte # (Auto) 0.03 10 3/uL 0.00-0.03 [facility] Platelet mean volume Auto (B ld) [Entitic vol]on 07-06-2023 Platelet mean volume (Bld) [Entitic vol] 8.9 fL Low 9.5-13.5 [facility] Platelets Auto (Bld) [#/Vol] on 07-06-2023 Platelets (Bld) [#/Vol] 242 10 3/uL 150-450 [facility] RBC Auto (Bld) [#/Vol]on RBC (Bld) [#/Vol] 4.07 10 6/uL Low 4.70-6.10 [facility] Serum or plasma anion gap de terminationon 07-06-2023 Anion gap [Moles/Vol] 13.5 mmol/L [facility] US venous duplex LE RTon [place] [address] Ultrasound Report Signed Patient: Norberto [place] MR#: [id number] 89 : 1940 Acct:[id number] Age/Sex: 83 / M ADM Date: 05/15/23 Loc: ER Room: Type: [facility] ER Attending Dr: Ordering Provider: Low Carter DO Date of Service: 05/15/23 US/US venous duplex LE RT: edema Copies to: Low Ewing DO Emma RIGHT LOWER EXTREMITY VENOUS DUPLEX INDICATION: Edema [...] Gus Wren MD05/16/2023 11:15 AM Dictation Location: [place] [address] Tech: Helen Malloy Transcribed By: PAUL 05/16/23 1115 Dictated By: Gus Wren MD 05/16/23 1114 Signed By: 05/16/23 1115 Normal [facility] Estimated glomerular filtrat ion rate (GFR) non- Americanon 05-03-2023 GFR/1.73 sq M.predicted among non-blacks MDRD (S/P/Bld) [Vol rate/Area] mL/min/{1.73_m2} >=60 [facility] - Chemistry and C hemistry - challengeon 05-03-2023 Calcium [Mass/Vol] 8.5 mg/dL 8.5-10.1 [facility] Chloride [Moles/Vol] 100 mmol/L 98-107 [facility] CO2 [Moles/Vol] 27.6 mmol/L 21.0-32.0 [facility] Creatinine [Mass/Vol] 1.06 mg/dL 0.70-1.30 [facility] GFR/1.73 sq M.predicted MDRD (S/P/Bld) [Vol rate/Area] mL/min/{1.73_m2} >=60 [facility] Glucose [Mass/Vol] 135 mg/dL 74-106 [facility] Potassium [Moles/Vol] 4.1 mmol/L 3.5-5.1 [facility] Sodium [Moles/Vol] 136 mmol/L 136-145 [facility] Urea nitrogen [Mass/Vol] 19.0 mg/dL 7.0-18.0 [facility] Urea nitrogen/Creatinine [Mass ratio] 17.9 mg/mg [facility] No Panel Informationon 05-03 C-Reactive Protein, Quantitative <0.50 mg/dL <=0.50 [facility] Serum or plasma anion gap de terminationon 05-03-2023 Anion gap [Moles/Vol] 12.5 mmol/L [facility] Estimated glomerular filtrat ion rate (GFR) non- Americanon 04-30-2023 GFR/1.73 sq M.predicted among non-blacks MDRD (S/P/Bld) [Vol rate/Area] mL/min/{1.73_m2} >=60 [facility] - Chemistry and C hemistry - challengeon 04-30-2023 Calcium [Mass/Vol] 8.7 mg/dL 8.5-10.1 [facility] Chloride [Moles/Vol] 101 mmol/L 98-107 [facility] CO2 [Moles/Vol] 29.2 mmol/L 21.0-32.0 [facility] Creatinine [Mass/Vol] 1.06 mg/dL 0.70-1.30 [facility] GFR/1.73 sq M.predicted MDRD (S/P/Bld) [Vol rate/Area] mL/min/{1.73_m2} >=60 [facility] Glucose [Mass/Vol] 93 mg/dL 74-106 [facility] Potassium [Moles/Vol] 4.6 mmol/L 3.5-5.1 [facility] Sodium [Moles/Vol] 136 mmol/L 136-145 [facility] Urea nitrogen [Mass/Vol] 20.0 mg/dL 7.0-18.0 [facility] Urea nitrogen/Creatinine [Mass ratio] 18.9 mg/mg [facility] No Panel Informationon 04-30 C-Reactive Protein, Quantitative 0.50 mg/dL <=0.50 [facility] Vancomycin Level Trough 11.0 ug/mL 5.0-20.0 [facility] Serum or plasma anion gap de terminationon 04-30-2023 Anion gap [Moles/Vol] 10.4 mmol/L [facility] GLYCOHEMOGLOBIN A1Con 2022 ADA RECOMMENDATION SEE BELOW Normal [facility] Comment on above: Result Comment: ADA RECOMMENDED LIMIT 4.0 - 6.0 ADA THERAPEUTIC TARGET < 7.0 ACTION SUGGESTED > 7.0 Performed By: #### A 1C #### [facility] [address] [address] [address] Juan Pablo Kaminski Glucose [Mass/Vol] 128 mg/dL Normal [facility] Comment on above: Performed By: #### A 1C #### [facility] [address] [address] [address] Juan Pablo Kaminski HbA1c (Bld) [Mass fraction] 6.1 % Normal 4.5-6.2 [facility] Comment on above: Performed By: #### A 1C #### [facility] [address] [address] [address] Juan Pablo Kaminski A1C with Estimated Average G luon 03-20-2022 A1C with Estimated Average Glu 128 [facility] Other A1C with Estimated Average Glu [employer] Other HbA1c (Bld) [Mass fraction] 6.1 % Normal 4.5-6.2 [facility] Other Comment on above: Performed By: #### A 1C #### [facility] [address] [address] [address] Juan Pablo Kaminski GLYCOHEMOGLOBIN A1Con 2022 ADA RECOMMENDATION SEE BELOW Normal [facility] Comment on above: Result Comment: ADA RECOMMENDED LIMIT 4.0 - 6.0 ADA THERAPEUTIC TARGET < 7.0 ACTION SUGGESTED > 7.0 Performed By: #### A 1C #### [facility] [address] [address] [address] Juan Pablo Kaminski Glucose [Mass/Vol] 128 mg/dL Normal [facility] Comment on above: Performed By: #### A 1C #### [facility] [address] [address] [address] Juan Pablo Kaminski US SCROTUM W [...] LEIDY PEREIRA Date: 2021-12-25 18:32 Normal [facility] Urine culture routineOrdered By: Sam Simons on 10-07-2022 Bacteria identified Cx Nom (U) Pseudomonas aeruginosa [facility] Automated erythrocytes count in urine sediment (number/area)Ordered By: Sam Simons on 12-17-2021 RBC Auto (Urine sed) [#/Area] 1-2 [HPF] 0-4 [facility] Automated leukocytes count i n urine sediment (number/area)Ordered By: Sam Simons on 12-17-2021 WBC Auto (Urine sed) [#/Area] 20-49 [HPF] 0-4 [facility] Bilirubin Test strip Ql (U)O rdered By: Sam Simons on 12-17-2021 Bilirubin Ql (U) Negative Negative [facility] Color Auto (U)Ordered By: Micheal Simons on 12-17-2021 Color (U) Yellow Yellow [facility] Ketones Auto test strip (U) [Mass/Vol]Ordered By: Sam Simons on 12-17-2021 Ketones (U) [Mass/Vol] Negative Negative [facility] - UrinalysisOrder ed By: Sam Simons on 12-17-2021 Hyaline casts LM Ql (Urine sed) 0-8 [LPF] 0-8 [facility] Nitrite Test strip Ql (U)Ord ered By: Sam Simons on 12-17-2021 Nitrite Ql (U) Negative Negative [facility] Protein Auto test strip (U) [Mass/Vol]Ordered By: Sam Simons on 12-17-2021 Protein (U) [Mass/Vol] Negative Negative [facility] Specific gravity Auto test s trip (U) [Rel density]Ordered By: Sam Simons on 12-17-2021 Specific gravity (U) [Rel density] 1.016 1.001-1.030 [facility] Squamous epithelial cells de tection in urine sediment by light microscopyOrdered By: Sam Simons on 12-17-2021 Epithelial cells.squamous LM Ql (Urine sed) 0-1 [HPF] 0-2 [facility] Urine bacteria detection by automated methodOrdered By: Sam Simons on 12-17-2021 Bacteria Auto Ql (U) None seen None Seen [facility] Urine clarity by refractomet ry automatedOrdered By: Sam Simons on 12-17-2021 Clarity Refractometry automated (U) Clear Clear [facility] Urine glucose measurement by automated test strip (mass/volume)Ordered By: Sam Simons on 12-17-2021 Glucose Auto test strip (U) [Mass/Vol] Normal mg/dL Normal [facility] Urine hemoglobin detection b y automated test stripOrdered By: Sam Simons on 12-17-2021 Hemoglobin Auto test strip Ql (U) Negative Negative [facility] Urine leukocyte esterase det ection by automated test stripOrdered By: Sam Simons on 12-17-2021 Leukocyte esterase Auto test strip Ql (U) 4+ Negative [facility] Urobilinogen Auto test strip (U) [Mass/Vol]Ordered By: Sam Simons on 12-17-2021 Urobilinogen (U) [Mass/Vol] Normal mg/dL Normal [facility] pH Auto test strip (U)Ordere d By: Sam Simons on 12-17-2021 pH (U) 6.0 [pH] 5.0-9.0 [facility] Urine culture routineOrdered By: Davis Cervantes on 12-13-2021 Bacteria identified Cx Nom (U) No Growth 2 Days [facility] Automated erythrocytes count in urine sediment (number/area)Ordered By: Davis Cervantes on 12-11-2021 RBC Auto (Urine sed) [#/Area] 20-49 [HPF] 0-4 [facility] Automated leukocytes count i n urine sediment (number/area)Ordered By: Davis Cervantes on 12-11-2021 WBC Auto (Urine sed) [#/Area] 10-19 [HPF] 0-4 [facility] Basophils Auto (Bld) [#/Vol] Ordered By: Davis Cervantes on 12-11-2021 Basophils (Bld) [#/Vol] 0.1 10*3/uL 0.0-0.2 [facility] Basophils/100 WBC Auto (Bld) Ordered By: Davis Cervantes on 12-11-2021 Basophils/100 WBC (Bld) 1.2 % . F [facility] Bilirubin Test strip Ql (U)O rdered By: Davis Cervantes on 12-11-2021 Bilirubin Ql (U) Negative Negative [facility] Blood hemoglobin measurement (mass/volume)Ordered By: Davis Cervantes on 12-11-2021 Hemoglobin (Bld) [Mass/Vol] 13.3 g/dL 13.0-17.0 [facility] Blood leukocytes automated c ount (number/volume)Ordered By: Davis Cervantes on 12-11-2021 WBC (Bld) [#/Vol] 8.2 10*3/uL 4.5-11.0 [facility] Color Auto (U)Ordered By: Mary Cervantes on 12-11-2021 Color (U) Yellow Yellow [facility] Creatinine and Glomerular fi ltration rate.predicted panel (S/P/Bld)Ordered By: Davis Cervantes on 12-11-2021 Creatinine [Mass/Vol] 1.16 mg/dL 0.64-1.27 [facility] Eosinophils Auto (Bld) [#/Vo l]Ordered By: Davis Cervantes on 12-11-2021 Eosinophils (Bld) [#/Vol] 0.2 10*3/uL 0.0-0.45 [facility] Eosinophils/100 WBC Auto (Bl d)Ordered By: Davis Cervantes on 12-11-2021 Eosinophils/100 WBC (Bld) 2.9 % . [facility] Erythrocyte distribution wid th Auto (RBC) [Ratio]Ordered By: Davis Cervantes on 12-11-2021 Erythrocyte distribution width (RBC) [Ratio] 11.8 % 12.0-14.8 [facility] Estimated glomerular filtrat ion rate (GFR) non- AmericanOrdered By: Davis Cervantes on 12-11-2021 GFR/1.73 sq M.predicted among non-blacks MDRD (S/P/Bld) [Vol rate/Area] 60 mL/Min [facility] Hematocrit Auto (Bld) [Volum e fraction]Ordered By: Davis Cervantes on 12-11-2021 Hematocrit (Bld) [Volume fraction] 39.6 % 38.8-50.0 [facility] Ketones Auto test strip (U) [Mass/Vol]Ordered By: Davis Cervantes on 12-11-2021 Ketones (U) [Mass/Vol] Negative [facility]ematology and Cell countsOrdered By: Davis Cervantes on 12-11-2021 Nucleated RBC/100 WBC (Bld) [Ratio] 0.0 % 0-0.5 [facility] Laboratory - UrinalysisOrder ed By: Davis Cervantes on 12-11-2021 Hyaline casts LM Ql (Urine sed) 0-8 [LPF] 0-8 [facility] Lymphocytes Auto (Bld) [#/Vo l]Ordered By: Davis Cervantes on 12-11-2021 Lymphocytes (Bld) [#/Vol] 1.9 10*3/uL 1.00-4.8 [facility] Lymphocytes/100 WBC Auto (Bl d)Ordered By: Davis Cervantes on 12-11-2021 Lymphocytes/100 WBC (Bld) 23.3 % . [facility] MCH Auto (RBC) [Entitic mass ]Ordered By: Davis Cervantes on 12-11-2021 MCH (RBC) [Entitic mass] 32.0 pg 27.5-35.2 [facility] MCHC Auto (RBC) [Mass/Vol]Or dered By: Davis Cervantes on 12-11-2021 MCHC (RBC) [Mass/Vol] 33.6 g/dL 32.5-35.[address] [facility] MCV Auto (RBC) [Entitic vol] Ordered By: Davis Cervantes on 12-11-2021 MCV (RBC) [Entitic vol] 95.1 fL 83.5-101 F [facility] Monocytes Auto (Bld) [#/Vol] Ordered By: Davis Cervantes on 12-11-2021 Monocytes (Bld) [#/Vol] 1.1 10*3/uL 0.0-0.8 [facility] Monocytes/100 WBC Auto (Bld) Ordered By: Davis Cervantes on 12-11-2021 Monocytes/100 WBC (Bld) 13.6 % . F [facility] Neutrophils Auto (Bld) [#/Vo l]Ordered By: Davis Cervantes on 12-11-2021 Neutrophils (Bld) [#/Vol] 4.8 10*3/uL 1.8-7.7 [facility] Neutrophils/100 WBC Auto (Bl d)Ordered By: Davis Cervantes on 12-11-2021 Neutrophils/100 WBC (Bld) 59.0 % . [facility] Nitrite Test strip Ql (U)Ord ered By: Davis Cervantes on 12-11-2021 Nitrite Ql (U) Negative Negative [facility] No Panel InformationOrdered By: Davis Cervantes on 12-11-2021 Estimated GFR () > 60 mL/Min [facility] Comment on above: GFR estimated refere nce range: According to KDOQI guidelines, <60 ml/min/1.73m2 is sufficient to diagnose a patient with chronic kidney disease. Pharmacy Creatinine Clearance (Chem 57.67 [facility] Platelet mean volume Auto (B ld) [Entitic vol]Ordered By: Davis Cervantes on 12-11-2021 Platelet mean volume (Bld) [Entitic vol] 7.0 fL 6.6-10.1 [facility] Platelets Auto (Bld) [#/Vol] Ordered By: Davis Cervantes on 12-11-2021 Platelets (Bld) [#/Vol] 266 10*3/uL 150-450 [facility] Protein Auto test strip (U) [Mass/Vol]Ordered By: Davis Cervantes on 12-11-2021 Protein (U) [Mass/Vol] Negative Negative [facility] RBC Auto (Bld) [#/Vol]Ordere d By: Davis Cervantes on 12-11-2021 RBC (Bld) [#/Vol] 4.17 10*6/uL 3.90-5.60 [facility] Serum or plasma anion gap de terminationOrdered By: Davis Cervantes on 12-11-2021 Anion gap [Moles/Vol] 12.2 mmol/L 6.0-15.0 [facility] Serum or plasma calcium maggy urement (mass/volume)Ordered By: Davis Cervantes on 12-11-2021 Calcium [Mass/Vol] 9.0 mg/dL 8.2-10.2 [facility] Serum or plasma chloride duran surement (moles/volume)Ordered By: Davis Cervantes on 12-11-2021 Chloride [Moles/Vol] 96 mmol/L 95-114 [facility] Serum or plasma glucose maggy urement (mass/volume)Ordered By: Davis Cervantes on 12-11-2021 Glucose [Mass/Vol] 131 mg/dL 70-100 [facility] Comment on above: ADA recommended refe rence rangeRandom Glucose Reference Range is dependent on time and content of last meal. Glucose of more than 200 mg/dL in a nonstressed, ambulatory subject supports the diagnosis of Diabetes Mellitus. Serum or plasma potassium me asurement (moles/volume)Ordered By: Davis Cervantes on 12-11-2021 Potassium [Moles/Vol] 4.5 mmol/L 3.5-5.1 [facility] Serum or plasma sodium measu rement (moles/volume)Ordered By: Davis Cervantes on 12-11-2021 Sodium [Moles/Vol] 131 mmol/L 136-146 [facility] Serum or plasma total carbon dioxide measurement (moles/volume)Ordered By: Davis Cervantes on 12-11-2021 CO2 [Moles/Vol] 27.3 mmol/L 22.0-30.0 [facility] Serum or plasma urea nitroge n measurement (mass/volume)Ordered By: Davis Cervantes on 12-11-2021 Urea nitrogen [Mass/Vol] 20 mg/dL 9-23 [facility] Specific gravity Auto test s trip (U) [Rel density]Ordered By: Davis Cervantes on 12-11-2021 Specific gravity (U) [Rel density] 1.014 1.001-1.030 [facility] Squamous epithelial cells de tection in urine sediment by light microscopyOrdered By: Davis Cervantes on 12-11-2021 Epithelial cells.squamous LM Ql (Urine sed) 0-1 [HPF] 0-2 [facility] Urine bacteria detection by automated methodOrdered By: Davis Cervantes on 12-11-2021 Bacteria Auto Ql (U) None seen None Seen [facility] Urine clarity by refractomet ry automatedOrdered By: Davis Cervantes on 12-11-2021 Clarity Refractometry automated (U) Clear Clear [facility] Urine glucose measurement by automated test strip (mass/volume)Ordered By: Davis Cervantes on 12-11-2021 Glucose Auto test strip (U) [Mass/Vol] Normal mg/dL Normal [facility] Urine hemoglobin detection b y automated test stripOrdered By: Davis Cervantes on 12-11-2021 Hemoglobin Auto test strip Ql (U) 2+ Negative [facility] Urine leukocyte esterase det ection by automated test stripOrdered By: Davis Cervantes on 12-11-2021 Leukocyte esterase Auto test strip Ql (U) 2+ Negative [facility] Urobilinogen Auto test strip (U) [Mass/Vol]Ordered By: Davis Billy on 12-11-2021 Urobilinogen (U) [Mass/Vol] Normal mg/dL Normal [facility] pH Auto test strip (U)Ordere d By: Davis Cervantes on 12-11-2021 pH (U) 5.5 [pH] 5.0-9.0 [facility] ED NOTEon 11-27-2021 ED NOTE HNO ID: [id number] Author: Alyx Vergara, RN Service: Nursing Author Type: Registered Nurse Type: ED Notes Filed: 11/26/2021 10:21 PM Note Text: Discharge instructions and follow up appointments reviewed. Pt verbalized understanding and states no concerns or questions at this time. VSS. Spoke with Asha about elevated BP. Stated that it's okay for pt to go and have him f/u with his PCP. Normal [facility] ED NOTE HNO ID: [id number] Author: Alyx Vergara RN Service: Nursing Author Type: Registered Nurse Type: ED Notes Filed: 11/26/2021 10:10 PM Note Text: Replaced smith bag with leg bag. Normal [facility] Bacteria Ur Culton 2 Bacteria identified Cx Nom (U) [id number] Abnormal [facility] Comment on above: Order Comment: Speci men Type: URINE SPECIMEN Ordering Facility: [facility] Address: [address] [place] [address] Result Comment: >=10 0,000 CFU/ml Klebsiella oxytoca Performed By: #### 6 30-4, 64004-4 #### [facility] CLIA [id number] [address] [place] [address] [place] [address] [place] Bacterial susceptibility maldonado el (Isol)on 11-26-2021 Ampicillin [Susc] Resistant [facility] Comment on above: Order Comment: Order ing Facility: [facility] Address: [address] [place] [address] Performed By: #### 6 30-4, 26205-3 #### [facility] CLIA [id number] [address] [place] [address] [place] Ampicillin+Sulbactam [Susc] 4 Susceptible Susceptible <=8 , Intermediate >8 , Resistant >16 [facility] Comment on above: Order Comment: Order ing Facility: [facility] Address: [address] [place] [address] Performed By: #### 6 30-4, 40489-1 #### [facility] CLIA [id number] [address] [place] [address] [place] ceFAZolin [Susc] <=4 Susceptible Susceptible 0-16 , Intermediate <0 or >16 , Resistant >16 [facility] Comment on above: Order Comment: Order ing Facility: [facility] Address: [address] [place] [address] Performed By: #### 6 30-4, 35276-3 #### [facility] CLIA [id number] [address] [place] [address] [place] Cefepime [Susc] <=1 Susceptible Susceptible <=2 , Intermediate >2 , Resistant >=16 [facility] Comment on above: Order Comment: Order ing Facility: [facility] Address: [address] [place] [address] Performed By: #### 6 30-4, 46477-0 #### [facility] CLIA [id number] [address] [place] [address] [place] cefTRIAXone [Susc] <=1 Susceptible Susceptib le <=1 , Intermediate >1 , Resistant >=4 [facility] Comment on above: Order Comment: Order ing Facility: [facility] Address: [address] [place] [address] Performed By: #### 6 30-4, 00515-3 #### [facility] CLIA [id number] [address] [place] [address] [place] Ciprofloxacin [Susc] <=0.25 Susceptible Suscept ible <0.5 , Intermediate >=.5 , Resistant >=1 [facility] Comment on above: Order Comment: Order ing Facility: [facility] Address: [address] [place] [address] Performed By: #### 6 30-4, 24172-9 #### [facility] CLIA [id number] [address] [place] [address] [place] Ertapenem ROCIO [Susc] <=0.5 Susceptible Suscept ible <=0.5 , Intermediate >.5 , Resistant >1 [facility] Comment on above: Order Comment: Order ing Facility: [facility] Address: [address] [place] [address] Performed By: #### 6 30-4, 06715-1 #### [facility] CLIA [id number] [address] [place] [address] [place] Gentamicin [Susc] <=1 Susceptible Susceptibl e <=4 , Intermediate >4 , Resistant >8 [facility] Comment on above: Order Comment: Order ing Facility: [facility] Address: [address] [place] [address] Performed By: #### 6 30-4, 40037-0 #### [facility] CLIA [id number] [address] [place] [address] [place] Meropenem [Susc] <=0.25 Susceptible Susceptible <=1 , Intermediate >1 , Resistant >2 [facility] Comment on above: Order Comment: Order ing Facility: [facility] Address: [address] [place], [place] [address] Performed By: #### 6 30-4, 79022-1 #### [facility] CLIA [id number] [address] [place] [address] [place] Nitrofurantoin [Susc] 32 Susceptible Suscep tible <=32 , Intermediate >32 , Resistant >64 [facility] Comment on above: Order Comment: Order ing Facility: [facility] Address: [address] [place] [address] Performed By: #### 6 30-4, 65507-7 #### [facility] CLIA [id number] [address] [place] [address] Piperacillin+Sulbactam ROCIO [Susc] <=4 Susceptible Susceptible <=16 , Intermediate >16 , Resistant >64 [facility] Comment on above: Order Comment: Order ing Facility: [facility] Address: [address] [place] [address] Performed By: #### 6 30-4, 13623-2 #### [facility] CLIA [id number] [address] [place] [address] Tobramycin [Susc] <=1 Susceptible Susceptibl e <=4 , Intermediate >4 , Resistant >8 [facility] Comment on above: Order Comment: Order ing Facility: [facility] Address: [address] [place] [address] Performed By: #### 6 30-4, 21538-9 #### [facility] CLIA [id number] [address] [place] [address] Trimethoprim+Sulfametho xazole [Susc] <=20 Susceptible Susceptible <=40 , Resistant >40 [facility] Comment on above: Order Comment: Order ing Facility: [facility] Address: [address] [place] [address] Performed By: #### 6 30-4, 92485-1 #### [facility] CLIA [id number] [address] [place] [address] [place] ED NOTEon 11-26-2021 ED NOTE HNO ID: [id number] Author: Alyx Vergara RN Service: Nursing Author Type: Registered Nurse Type: ED Notes Filed: 11/26/2021 9:20 PM Note Text: Replaced Asha Lyon. Normal [facility] ED NOTE HNO ID: [id number] Author: Alyx Vergara RN Service: Nursing Author Type: Registered Nurse Type: ED Notes Filed: 11/26/2021 9:01 PM Note Text: Was instructed to bladder scan pt due to pt having no urine in replaced bag. Bladder scanned 261 mL's the first time. Then 214 mL's the second time. Made Asha ESQUIVEL) aware. [facility] ED NOTE HNO ID: [id number] Author: Alyx Vergara RN Service: Nursing Author Type: Registered Nurse Type: ED Notes Filed: 11/26/2021 9:49 PM Note Text: Flushed 20 mL Smith. No leaking noted around tube. [facility] ED PROV NOTEon 11-26-2021 ED PROV NOTE HNO ID: [id number] Author: Asha Clinton PA-C Service: ? Author Type: Physician Filler Shredding Machine Loader Type: ED Provider Notes Filed: 11/26/2021 10:26 PM Note Text: ED Provider Note Patient Name: Norberto [place] : 1940 SERVICE DATE: 11/26/21 History Patient presents with: Smith Cath Problem: Pt had smith placed 11/12, tonight having urine coming out around tube Patient is a an 81-year-old male history of diabetes, BPH presenting to the emergency department with indwelling Smith catheter complaining of leakage around Smith catheter states. Also has been describing some [...] reviewed and are negative. Physical Exam Vitals [11/26/21 1922] BP Pulse Temp Temp src Resp SpO2 [...] left CVA tenderness or guarding. Genitourinary: Comments: Smith catheter in place, leg bag has very [...] 81-year-old male with history of BPH, indwelling Smith catheter placed 11/12 presenting with decreased flow from Smith catheter this evening and leakage around the urethral meatus. Patient states he has had some burning along this area as well. No fevers, chills. Afebrile, nontoxic-appearing . Benign abdominal exam. Irrigated Smith catheter without difficulty. Little to no urine was draining from leg bag in place. Bladder scan performed which was 261. Smith catheter changed. Urine draining appropriately. Patient feels much improved. Urinalysis shows 11-25 white blood cells and 6-10 red blood cells, 3+ leukoesterase with positive nitrites. Urine sent for culture. Previous and only urine culture in [facility] on 11/07 had no growth. Given dose of Keflex. Prescription for this E scripted to pharmacy. Patient discharged with Smith in place, leg bag instructions. Elevated blood pressure noted and improved during stay. No CP, sob, dizziness or any other complaints. Recommend f/u with pcp for recheck. All questions and concerns addre (more content not included)... Normal [facility] Urinalysis complete panel (U )on 11-26-2021 Bacteria LM.HPF (Urine sed) [#/Area] Many Abnormal None Seen [facility] Comment on above: Order Comment: Speci men Type: URINE SPECIMEN Ordering Facility: [facility] Address: [address] [place] [address] Performed By: #### 6 30-4, 54622-8 #### [facility] CLIA [id number] [address] [place] [address] [place] Bilirubin Ql (U) Negative Normal Negative [facility] Comment on above: Order Comment: Speci men Type: URINE SPECIMEN Ordering Facility: [facility] Address: [address] [place] [address] Performed By: #### 6 30-4, 16648-4 #### [facility] CLIA [id number] [address] [place] [address] [place] Clarity (Unsp spec) Cloudy Abnormal Clear [facility] Comment on above: Order Comment: Speci men Type: URINE SPECIMEN Ordering Facility: [facility] Address: [address] [place], [place] [address] Performed By: #### 6 30-4, 86426-5 #### [facility] CLIA [id number] [address] [place] [address] [place] Color (U) Yellow Normal Yellow [facility] Comment on above: Order Comment: Speci men Type: URINE SPECIMEN Ordering Facility: [facility] Address: [address] [place], [place] [address] Performed By: #### 6 30-4, 21475-1 #### [facility] CLIA [id number] [address] [place] [address] [place] Epithelial cells LM.HPF (Urine sed) [#/Area] Few Normal [facility] Comment on above: Order Comment: Speci men Type: URINE SPECIMEN Ordering Facility: [facility] Address: [address] [place], [place] [address] Performed By: #### 6 30-4, 10076-5 #### [facility] CLIA [id number] [address] [place] [address] [place] Glucose Test strip (U) [Mass/Vol] Negative Normal Negative [facility] Comment on above: Order Comment: Speci men Type: URINE SPECIMEN Ordering Facility: [facility] Address: [address] [place], [place] [address] Performed By: #### 6 30-4, 32203-3 #### [facility] CLIA [id number] [address] [place] [address] [place] Hemoglobin Ql (U) 2+ Abnormal Negative [facility] Comment on above: Order Comment: Speci men Type: URINE SPECIMEN Ordering Facility: [facility] Address: [address] [place], [place] [address] Performed By: #### 6 30-4, 23635-4 #### [facility] CLIA [id number] [address] [place] [address] [place] Ketones Ql (U) Negative Normal Negative [facility] Comment on above: Order Comment: Speci men Type: URINE SPECIMEN Ordering Facility: [facility] Address: [address] [place] [address] Performed By: #### 6 30-4, 71196-7 #### [facility] CLIA [id number] [address] [place] [address] [place] Leukocyte esterase Test strip Ql (U) 3+ Abnormal Negative [facility] Comment on above: Order Comment: Speci men Type: URINE SPECIMEN Ordering Facility: [facility] Address: [address] [place] [address] Performed By: #### 6 30-4, 26566-3 #### [facility] CLIA [id number] [address] [place] [address] [place] Nitrite Ql (U) Positive Abnormal Negative [facility] Comment on above: Order Comment: Speci men Type: URINE SPECIMEN Ordering Facility: [facility] Address: [address] [place] [address] Performed By: #### 6 30-4, 21773-5 #### [facility] CLIA [id number] [address] [place] [address] [place] pH (U) 5.5 [pH] Normal 5.0-8.0 [facility] Comment on above: Order Comment: Speci men Type: URINE SPECIMEN Ordering Facility: [facility] Address: [address] [place] [address] Performed By: #### 6 30-4, 11694-7 #### [facility] CLIA [id number] [address] [place] [address] [place] Protein (U) [Mass/Vol] Normal [facility] Comment on above: Order Comment: Speci men Type: URINE SPECIMEN Ordering Facility: [facility] Address: [address] [place] [address] Result Comment: Visi ble blood causes falsely elevated results for analyte Protein. Due to this limitation, Protein will not be reported for patients whose urine contains visible blood. Performed By: #### 6 30-4, 95909-9 #### [facility] CLIA [id number] [address] [place] [address] [place] RBC LM.HPF (Urine sed) [#/Area] 6-10 /HPF Abnormal 0-3 /HPF [facility] Comment on above: Order Comment: Speci men Type: URINE SPECIMEN Ordering Facility: [facility] Address: [address] [place] [address] Performed By: #### 6 30-4, 50035-6 #### [facility] CLIA [id number] [address] [place] [address] [place] Specific gravity (U) [Rel density] 1.009 Normal 1.005-1.030 [facility] Comment on above: Order Comment: Speci men Type: URINE SPECIMEN Ordering Facility: [facility] Address: [address] [place] [address] Performed By: #### 6 30-4, 39903-6 #### [facility] CLIA [id number] [address] [place] [address] [place] Urobilinogen Ql (U) 0.2 EU/dL Normal 0.2-1.0 EU/dL [facility] Comment on above: Order Comment: Speci men Type: URINE SPECIMEN Ordering Facility: [facility] Address: [address] [place] [address] Performed By: #### 6 30-4, 05929-2 #### [facility] CLIA [id number] [address] [place] [address] [place] WBC LM.HPF (Urine sed) [#/Area] 11-25 /HPF Abnormal 0-5 /HPF [facility] Comment on above: Order Comment: Speci men Type: URINE SPECIMEN Ordering Facility: [facility] Address: [address] [place], [place] [id number] Performed By: #### 6 30-4, 48174-4 #### [facility] CLIA [id number] [address] [place] [address] [place] [facility]on SARS-CoV-2 (COVID-19) RNA LUANNE+probe Ql [...] for this test is supported by the Civil Structural Engineer of Health and Human Service's (HHS's) declaration [...] SARS-CoV-2. Performed By: #### C VDTBH #### [facility] [address] [place] [address] Dr. Juan Pablo Kaminski Bacteria Ur Culton 2 Bacteria identified Cx Nom (U) No growth (<1,000 CFU/ml) Normal [facility] Comment on above: Order Comment: Speci men Type: URINE SPECIMEN Ordering Facility: [facility] Address: [address] [place] [address] Performed By: #### 6 30-4 #### [facility] CLIA [id number] [address] [place] [address] [place] Basic metabolic 2000 panelon 11-07-2021 Anion gap [Moles/Vol] 10 mmol/L Normal 9-18 [facility] Comment on above: Order Comment: Speci men Type: URINE SPECIMEN Ordering Facility: [facility] Address: [address] [place] [address] Performed By: #### 6 30-4, 52371-6 #### [facility] CLIA [id number] [address] [place] [address] [place] Calcium [Mass/Vol] 9.1 mg/dL Normal 8.5-10.2 [facility] Comment on above: Order Comment: Speci men Type: URINE SPECIMEN Ordering Facility: [facility] Address: [address] [place] [address] Performed By: #### 6 30-4, 43185-6 #### [facility] CLIA [id number] [address] [place] [address] [place] Chloride [Moles/Vol] 95 mmol/L Low 97-105 [facility] Comment on above: Order Comment: Speci men Type: URINE SPECIMEN Ordering Facility: [facility] Address: [address] [place], [place] [address] Performed By: #### 6 30-4, 25245-5 #### [facility] CLIA [id number] [address] [place] [address] [place] CO2 [Moles/Vol] 25 mmol/L Normal 22-30 [facility] Comment on above: Order Comment: Speci men Type: URINE SPECIMEN Ordering Facility: [facility] Address: [address] [place], [place] [address] Performed By: #### 6 30-4, 29611-1 #### [facility] CLIA [id number] [address] [place] [address] [place] Creatinine [Mass/Vol] 1.25 mg/dL High 0.73-1.22 [facility] Comment on above: Order Comment: Domonique garcia Type: URINE SPECIMEN Ordering Facility: [facility] Address: [address] [place], [place] [id number] Performed By: #### 6 30-4, 95609-6 #### [facility] CLIA [id number] [address] [place] [address] [place] ESTIMATED GLOMERULAR FILTRATION RATE 57 mL/min/1.73m??? Low >=60 [facility] Comment on above: Order Comment: Domonique men Type: URINE SPECIMEN Ordering Facility: [facility] Address: [address] [place], [place] [id number] Result Comment: Annalise mated Glomerular Filtration Rate [...] actual GFR. Performed By: #### 6 30-4, 27621-9 #### [facility] CLIA [id number] [address] [place] [address] [place] Glucose [Mass/Vol] 129 mg/dL High 74-99 [facility] Comment on above: Order Comment: Domonique radha Type: URINE SPECIMEN Ordering Facility: [facility] Address: [address] [place], [place] [id number] Result Comment: The [place] [employer] (ADA) provides guidance for cutoff [...] Standards of Medical Care in Diabetes 2016, [place] [employer]. Diabetes Care. 2016.39(Suppl 1). Performed By: #### 6 30-4, 74851-3 #### [facility] CLIA [id number] [address] [place] [address] [place] Potassium [Moles/Vol] 4.6 mmol/L Normal 3.7-5.1 [facility] Comment on above: Order Comment: Speci men Type: URINE SPECIMEN Ordering Facility: [facility] Address: [address] [place] [address] Performed By: #### 6 30-4, 01794-4 #### [facility] CLIA [id number] [address] [place] [address] [place] Sodium [Moles/Vol] 130 mmol/L Low 136-144 [facility] Comment on above: Order Comment: Speci men Type: URINE SPECIMEN Ordering Facility: [facility] Address: [address] [place] [address] Performed By: #### 6 30-4, 38796-2 #### [facility] CLIA [id number] [address] [place] [address] [place] Urea nitrogen [Mass/Vol] 23 mg/dL Normal 9-24 [facility] Comment on above: Order Comment: Speci men Type: URINE SPECIMEN Ordering Facility: [facility] Address: [address] [place] [address] Performed By: #### 6 30-4, 75568-2 #### [facility] CLIA [id number] [address] [place] [address] [place] CBC W Auto Differential pane l (Bld)on 11-07-2021 Basophils/100 WBC (Bld) 0.0 % Normal [facility] Comment on above: Order Comment: Speci men Type: URINE SPECIMEN Ordering Facility: [facility] Address: [address] [place] [address] Performed By: #### 6 30-4, 82857-7 #### [facility] CLIA [id number] [address] [place] [address] [place] Differential cell count method Nom (Bld) Manual Normal [facility] Comment on above: Order Comment: Speci men Type: URINE SPECIMEN Ordering Facility: [facility] Address: [address] [place] [address] Performed By: #### 6 30-4, 38515-8 #### [facility] CLIA [id number] [address] [place] [address] [place] Eosinophils (Bld) [#/Vol] 0.10 10*3/uL Normal <0.46 [facility] Comment on above: Order Comment: Speci men Type: URINE SPECIMEN Ordering Facility: [facility] Address: [address] [place] [address] Performed By: #### 6 30-4, 86212-2 #### [facility] CLIA [id number] [address] [place] [address] [place] Eosinophils/100 WBC (Bld) 1.0 % Normal [facility] Comment on above: Order Comment: Speci men Type: URINE SPECIMEN Ordering Facility: [facility] Address: [address] [place], [place] [address] Performed By: #### 6 30-4, 33325-6 #### [facility] CLIA [id number] [address] [place] [address] [place] Erythrocyte distribution width (RBC) [Ratio] 11.5 % Normal 11.5-15.0 [facility] Comment on above: Order Comment: Speci men Type: URINE SPECIMEN Ordering Facility: [facility] Address: [address] [place], [place] [address] Performed By: #### 6 30-4, 95919-6 #### [facility] CLIA [id number] [address] [place] [address] [place] Hematocrit (Bld) [Volume fraction] 39.8 % Normal 39.0-51.0 [facility] Comment on above: Order Comment: Speci men Type: URINE SPECIMEN Ordering Facility: [facility] Address: [address] [place], [place] [address] Performed By: #### 6 30-4, 92440-6 #### [facility] CLIA [id number] [address] [place] [address] [place] Hemoglobin (Bld) [Mass/Vol] 13.4 g/dL Normal 13.0-17.0 [facility] Comment on above: Order Comment: Speci men Type: URINE SPECIMEN Ordering Facility: [facility] Address: [address] [place] [address] Performed By: #### 6 30-4, 27991-7 #### [facility] CLIA [id number] [address] [place] [address] [place] Lymphocytes (Bld) [#/Vol] 1.67 10*3/uL Normal 1.00-4.00 [facility] Comment on above: Order Comment: Speci men Type: URINE SPECIMEN Ordering Facility: [facility] Address: [address] [place], [place] [address] Performed By: #### 6 30-4, 43197-4 #### [facility] CLIA [id number] [address] [place] [address] [place] Lymphocytes/100 WBC (Bld) 17.0 % Normal [facility] Comment on above: Order Comment: Speci men Type: URINE SPECIMEN Ordering Facility: [facility] Address: [address] [place], [place] [address] Performed By: #### 6 30-4, 73309-5 #### [facility] CLIA [id number] [address] [place] [address] [place] MCH (RBC) [Entitic mass] 31.5 pg Normal 26.0-34.0 [facility] Comment on above: Order Comment: Speci men Type: URINE SPECIMEN Ordering Facility: [facility] Address: [address] [place], [place] [address] Performed By: #### 6 30-4, 80206-3 #### [facility] CLIA [id number] [address] [place] [address] [place] MCHC (RBC) [Mass/Vol] 33.7 g/dL Normal 30.5-36.0 [facility] Comment on above: Order Comment: Speci men Type: URINE SPECIMEN Ordering Facility: [facility] Address: [address] [place] [address] Performed By: #### 6 30-4, 58284-2 #### [facility] CLIA [id number] [address] [place] [address] [place] MCV (RBC) [Entitic vol] 93.4 fL Normal 80.0-100.0 [facility] Comment on above: Order Comment: Speci men Type: URINE SPECIMEN Ordering Facility: [facility] Address: [address] [place] [address] Performed By: #### 6 30-4, 47110-7 #### [facility] CLIA [id number] [address] [place] [address] [place] Neutrophils (Bld) [#/Vol] 6.29 10*3/uL Normal 1.45-7.50 [facility] Comment on above: Order Comment: Speci men Type: URINE SPECIMEN Ordering Facility: [facility] Address: [address] [place], [place] [address] Performed By: #### 6 30-4, 34198-9 #### [facility] CLIA [id number] [address] [place] [address] [place] Neutrophils/100 WBC (Bld) 64.0 % Normal [facility] Comment on above: Order Comment: Speci men Type: URINE SPECIMEN Ordering Facility: [facility] Address: [address] [place], [place] [address] Performed By: #### 6 30-4, 13201-8 #### [facility] CLIA [id number] [address] [place] [address] [place] Nucleated RBC/100 WBC (Bld) [Ratio] 0.0 /100 WBC Normal [facility] Comment on above: Order Comment: Speci men Type: URINE SPECIMEN Ordering Facility: [facility] Address: [address] [place], [place] [address] Performed By: #### 6 30-4, 09663-3 #### [facility] CLIA [id number] [address] [place] [address] [place] PLATELET ESTIMATE Adequate Normal [facility] Comment on above: Order Comment: Speci men Type: URINE SPECIMEN Ordering Facility: [facility] Address: [address] [place] [address] Performed By: #### 6 30-4, 08826-5 #### [facility] CLIA [id number] [address] [place] [address] [place] Platelet mean volume (Bld) [Entitic vol] 10.2 fL Normal 9.0-12.7 [facility] Comment on above: Order Comment: Speci men Type: URINE SPECIMEN Ordering Facility: [facility] Address: [address] [place], [place] [address] Performed By: #### 6 30-4, 46760-1 #### [facility] CLIA [id number] [address] [place] [address] [place] Platelets (Bld) [#/Vol] 258 10*3/uL Normal 150-400 [facility] Comment on above: Order Comment: Speci men Type: URINE SPECIMEN Ordering Facility: [facility] Address: [address] [place] [address] Performed By: #### 6 30-4, 47067-6 #### [facility] CLIA [id number] [address] [place] [address] [place] RBC (Bld) [#/Vol] 4.26 10*6/uL Normal 4.20-6.00 [facility] Comment on above: Order Comment: Speci men Type: URINE SPECIMEN Ordering Facility: [facility] Address: [address] [place] [address] Performed By: #### 6 30-4, 32704-0 #### [facility] CLIA [id number] [address] [place] [address] [place] RED CELL MORPH Reviewed: unremarkable Normal [facility] Comment on above: Order Comment: Speci men Type: URINE SPECIMEN Ordering Facility: [facility] Address: [address] [place], [place] [address] Performed By: #### 6 30-4, 98862-4 #### [facility] CLIA [id number] [address] [place] [address] [place] WAM - ABS BASO 0.00 k/uL Normal <0.11 [facility] Comment on above: Order Comment: Speci men Type: URINE SPECIMEN Ordering Facility: [facility] Address: [address] [place], [place] [address] Performed By: #### 6 30-4, 69918-4 #### [facility] CLIA [id number] [address] [place] [address] [place] WAM - ABS MONO 1.77 k/uL High <0.87 [facility] Comment on above: Order Comment: Speci men Type: URINE SPECIMEN Ordering Facility: [facility] Address: [address] [place], [place] [address] Performed By: #### 6 30-4, 87301-7 #### [facility] CLIA [id number] [address] [place] [address] [place] WAM - MONO% 18.0 % [facility] Comment on above: Order Comment: Speci men Type: URINE SPECIMEN Ordering Facility: [facility] Address: [address] [place], [place] [address] Performed By: #### 6 30-4, 18481-6 #### [facility] CLIA [id number] [address] [place] [address] [place] WAM ABSOLUTE NRBC <0.01 Normal <0.01 [facility] Comment on above: Order Comment: Speci men Type: URINE SPECIMEN Ordering Facility: [facility] Address: [address] [place], [place] [address] Performed By: #### 6 30-4, 87179-9 #### [facility] CLIA [id number] [address] [place] [address] [place] WBC (Bld) [#/Vol] 9.83 10*3/uL Normal 3.70-11.00 [facility] Comment on above: Order Comment: Speci men Type: URINE SPECIMEN Ordering Facility: [facility] Address: [address] [place] [address] Performed By: #### 6 30-4, 17288-9 #### [facility] CLIA [id number] [address] [place] [address] [place] ED NOTEon 11-07-2021 ED NOTE HNO ID: [id number] Author: Yoshi Schumacher RN Service: ? Author Type: Registered Nurse Type: ED Notes Filed: 11/07/2021 5:14 PM Note Text: Pt provided with discharged instructions. Medications gone over and all questions answered. Pt. Left with steady gait with friend for a ride. [facility] ED NOTE HNO ID: [id number] Author: Flaquita Donnelly RN Service: ? Author Type: Registered Nurse Type: ED Notes Filed: 11/07/2021 1:24 PM Note Text: Pt to ED for urinary retention. Pt had appointment with Urology on Wednesday, but was not able to be seen. Pt denies pain, but reports pressure in the bladder. Pt states he is not able to urinate completely and reports dribbling. [facility] ED PROV NOTEon 11-07-2021 ED PROV NOTE HNO ID: [id number] Author: Keely Sanchez DO Service: Emergency Medicine Author Type: Physician [...] this Wednesday with his urologist out of [place] but was notified that his urologist had [...] Abnormal; Notable for the following components: Abs [place] 1.77 (*) <0.87 k/uL All other components [...] cysts one of which is mildly complex. [employer] Porter[facility] Transcribe Date/Time: Nov 07 2021 2:57P [...] the ultrasound. I offered to place a Smith for comfort but he elects to hold off on a Smith catheter as he is able to urinate at this time in the setting of having a scheduled follow-up for this Wednesday with urology which we were able to obtain. He was instructed to return to the ER anytime should he develop acute urinary retention with inability to urinate for Smith catheter placement at th (more content not included)... Normal [facility] US KIDNEY/BLADDERon 11-08-19 US KIDNEY/BLADDER * * *Final Report* * * DATE OF EXAM: Nov 07 2021 2:52PM [facility] 1055 - US KIDNEY/BLADDER / PROCEDURE [...] cysts one of which is mildly complex. [employer] Porter: [facility] Transcribe Date/Time: Nov 07 2021 2:57P Dictated by : NEHEMIAS COLBERT MD This examination was interpreted and the report reviewed and electronically signed by: NEHEMIAS COLBERT MD on Nov 07 2021 3:09PM EST [id number] IACN Normal [facility] Urinalysis complete panel (U )on 11-07-2021 Bilirubin Ql (U) Negative Normal Negative [facility] Comment on above: Order Comment: Speci men Type: URINE SPECIMEN Ordering Facility: [facility] Address: [address] [place], [place] [address] Performed By: #### 6 30-4, 63476-9 #### [facility] CLIA [id number] [address] [place] [address] [place] Clarity (Unsp spec) Clear Normal Clear [facility] Comment on above: Order Comment: Speci men Type: URINE SPECIMEN Ordering Facility: [facility] Address: [address] [place], [place] [address] Performed By: #### 6 30-4, 84627-0 #### [facility] CLIA [id number] [address] [place] [address] [place] Color (U) Yellow Normal Yellow [facility] Comment on above: Order Comment: Speci men Type: URINE SPECIMEN Ordering Facility: [facility] Address: [address] [place], [place] [address] Performed By: #### 6 30-4, 88270-6 #### [facility] CLIA [id number] [address] [place] [address] [place] Epithelial cells LM.HPF (Urine sed) [#/Area] Few Normal [facility] Comment on above: Order Comment: Speci men Type: URINE SPECIMEN Ordering Facility: [facility] Address: [address] [place], [place] [address] Performed By: #### 6 30-4, 14582-8 #### [facility] CLIA [id number] [address] [place] [address] [place] Glucose Test strip (U) [Mass/Vol] Negative Normal Negative [facility] Comment on above: Order Comment: Speci men Type: URINE SPECIMEN Ordering Facility: [facility] Address: [address] [place], [place] [address] Performed By: #### 6 30-4, 28448-8 #### [facility] CLIA [id number] [address] [place] [address] [place] Hemoglobin Ql (U) Negative Normal Negative [facility] Comment on above: Order Comment: Speci men Type: URINE SPECIMEN Ordering Facility: [facility] Address: [address] [place] [address] Performed By: #### 6 30-4, 54386-0 #### [facility] CLIA [id number] [address] [place] [address] [place] Hyaline casts (Urine sed) [#/Area] 1-3 /LPF Abnormal 0 /LPF [facility] Comment on above: Order Comment: Speci men Type: URINE SPECIMEN Ordering Facility: [facility] Address: [address] [place] [address] Performed By: #### 6 30-4, 40847-1 #### [facility] CLIA [id number] [address] [place] [address] [place] Ketones Ql (U) Trace Abnormal Negative [facility] Comment on above: Order Comment: Speci men Type: URINE SPECIMEN Ordering Facility: [facility] Address: [address] [place] [address] Performed By: #### 6 30-4, 17780-8 #### [facility] CLIA [id number] [address] [place] [address] [place] Leukocyte esterase Test strip Ql (U) Negative Normal Negative [facility] Comment on above: Order Comment: Speci men Type: URINE SPECIMEN Ordering Facility: [facility] Address: [address] [place], [place] [address] Performed By: #### 6 30-4, 73295-2 #### [facility] CLIA [id number] [address] [place] [address] [place] Nitrite Ql (U) Negative Normal Negative [facility] Comment on above: Order Comment: Speci men Type: URINE SPECIMEN Ordering Facility: [facility] Address: [address] [place], [place] [address] Performed By: #### 6 30-4, 17433-4 #### [facility] CLIA [id number] [address] [place] [address] [place] pH (U) 5.5 [pH] Normal 5.0-8.0 [facility] Comment on above: Order Comment: Speci men Type: URINE SPECIMEN Ordering Facility: [facility] Address: [address] [place] [address] Performed By: #### 6 30-4, 56369-5 #### [facility] CLIA [id number] [address] [place] [address] [place] Protein (U) [Mass/Vol] Negative Normal Negative [facility] Comment on above: Order Comment: Speci men Type: URINE SPECIMEN Ordering Facility: [facility] Address: [address] [place] [address] Performed By: #### 6 30-4, 54691-4 #### [facility] CLIA [id number] [address] [place] [address] [place] RBC LM.HPF (Urine sed) [#/Area] 0-3 /HPF Normal 0-3 /HPF [facility] Comment on above: Order Comment: Speci men Type: URINE SPECIMEN Ordering Facility: [facility] Address: [address] [place] [address] Performed By: #### 6 30-4, 66814-8 #### [facility] CLIA [id number] [address] [place] [address] [place] Specific gravity (U) [Rel density] 1.024 Normal 1.005-1.030 [facility] Comment on above: Order Comment: Speci men Type: URINE SPECIMEN Ordering Facility: [facility] Address: [address] [place] [address] Performed By: #### 6 30-4, 31607-4 #### [facility] CLIA [id number] [address] [place] [address] [place] Urobilinogen Ql (U) 0.2 EU/dL Normal 0.2-1.0 EU/dL [facility] Comment on above: Order Comment: Speci men Type: URINE SPECIMEN Ordering Facility: [facility] Address: [address] [place] [address] Performed By: #### 6 30-4, 39728-2 #### [facility] CLIA [id number] [address] [place] [address] [place] WBC LM.HPF (Urine sed) [#/Area] 0-5 /HPF Normal 0-5 /HPF [facility] Comment on above: Order Comment: Speci men Type: URINE SPECIMEN Ordering Facility: [facility] Address: [address] [place] [address] Performed By: #### 6 30-4, 61715-2 #### [facility] CLIA [id number] [address] [place] [address] [place] MICROALBUMIN URINEon Albumin, Urine 5.6 ug/mL Normal Not Estab. [facility] Comment on above: Performed By: #### M ALBLC #### [facility] [address] [place] [address] Dr. Juan Pablo Kaminski US CAROTID ART [...] 10-21-2021 BASO # 0.0 103/ul Normal 0.0-0.1 [facility] Comment on above: Performed By: #### A 1C #### [facility] [address] [place] [address] Dr. Juan Pablo Kaminski Basophils/100 WBC (Bld) 0.5 % Normal 0.2-2.0 [facility] Comment on above: Performed By: #### A 1C #### [facility] [address] [place] [address] Dr. Juan Pablo Kaminski EO # 0.3 103/ul Normal 0.0-0.7 [facility] Comment on above: Performed By: #### A 1C #### [facility] [address] [place] [address] Dr. Juan Pablo Kaminski Eosinophils/100 WBC (Bld) 3.6 % Normal 0.9-7.0 [facility] Comment on above: Performed By: #### A 1C #### [facility] [address] [place] [address] Dr. Juan Pablo Kaminski Erythrocyte distribution width (RBC) [Ratio] 11.1 % Normal 11.0-15.0 [facility] Comment on above: Performed By: #### A 1C #### [facility] [address] [place] [address] Dr. Juan Pablo Kaminski Hematocrit (Bld) [Volume fraction] 41.8 % Critically low 42.0-54.0 [facility] Comment on above: Performed By: #### A 1C #### [facility] [address] [place] [address] Dr. Juan Pablo Kaminski Hemoglobin (Bld) [Mass/Vol] 14.1 g/dL Normal 14.0-18.0 [facility] Comment on above: Performed By: #### A 1C #### [facility] [address] [place] [address] Dr. Juan Pablo Kaminski IG # 0.03 10e3/ul Normal 0.00-0.03 [facility] Comment on above: Performed By: #### A 1C #### [facility] [address] [place] [address] Dr. Juan Pablo Kaminski IG % 0.4 % Normal 0.0-0.5 [facility] Comment on above: Performed By: #### A 1C #### [facility] [address] [place] [address] Dr. Juan Pablo Kaminski LYMPH # 2.2 103/ul Normal 1.2-3.8 [facility] Comment on above: Performed By: #### A 1C #### [facility] [address] [place] [address] Dr. Juan Pablo Kaminski Lymphocytes/100 WBC (Bld) 29.4 % Normal 20.5-60.0 [facility] Comment on above: Performed By: #### A 1C #### [facility] [address] [place] [address] Dr. Juan Pablo Kaminski MANUAL DIFF REQ NO Normal [facility] Comment on above: Performed By: #### A 1C #### [facility] [address] [place] [address] Dr. Juan Pablo Kaminski MCH (RBC) [Entitic mass] 31.8 pg Normal 25.9-34.0 [facility] Comment on above: Performed By: #### A 1C #### [facility] [address] [place] [address] Dr. Juan Pablo Kaminski MCHC (RBC) [Mass/Vol] 33.7 g/dL Normal 29.9-35.2 [facility] Comment on above: Performed By: #### A 1C #### [facility] [address] [place] [address] Dr. Juan Pablo Kaminski MCV (RBC) [Entitic vol] 94.1 fL Critically high 80.0-94 .0 [facility] Comment on above: Performed By: #### A 1C #### [facility] [address] [place] [address] Dr. Juan Pablo Kaminski MONO # 0.9 103/ul Critically high 0.3-0.8 [facility] Comment on above: Performed By: #### A 1C #### [facility] [address] [place] [address] Dr. Juan Pablo Kaminski Monocytes/100 WBC (Bld) 11.7 % Normal 1.7-12.0 [facility] Comment on above: Performed By: #### A 1C #### [facility] [address] [place] [address] Dr. Juan Pablo Kaminski NEUT # 4.0 103/ul Normal 1.4-6.5 [facility] Comment on above: Performed By: #### A 1C #### [facility] [address] [place] [address] Dr. Juan Pablo Kaminski Neutrophils/100 WBC (Bld) 54.4 % Normal 43.0-75.0 [facility] Comment on above: Performed By: #### A 1C #### [facility] [address] [place] [address] Dr. Juan Pablo Kaminski Platelet mean volume (Bld) [Entitic vol] 8.6 fL Critically low 9.5-13.5 [facility] Comment on above: Performed By: #### A 1C #### [facility] [address] [place] [address] Dr. Juan Pablo Kaminski PLT 231 103/ul Normal 150-450 [facility] Comment on above: Performed By: #### A 1C #### [facility] [address] [place] [address] Dr. Juan Pablo Kaminski RBC 4.44 106/ul Critically low 4.70-6.10 [facility] Comment on above: Performed By: #### A 1C #### [facility] [address] [place] [address] Dr. Juan Pablo Kaminski WBC 7.3 103/ul Normal 4.0-11.0 [facility] Comment on above: Performed By: #### A 1C #### [facility] [address] [place] [address] Dr. Juan Pablo Kaminski DIRECT LDLon 10-21-2021 Cholesterol in LDL [Mass/Vol] 106 mg/dL Normal [facility] Comment on above: Performed By: #### A ANA ROWLAND, DLDL #### [facility] [address] [place] [address] Dr. Juan Pablo Kaminski DLDL NORMAL SEE BELOW Normal [facility] Comment on above: Result Comment: <100 mg/dl OPTIMAL 100 - 129 mg/dl NEAR OR ABOVE OPTIMAL 130 - 159 mg/dl BORDERLINE HIGH 160 - 189 mg/dl HIGH >190 mg/dl VERY HIGH Performed By: #### A LT BMP, DLDL #### [facility] [address] [place] [address] Dr. Juan Pablo Kaminski GLYCOHEMOGLOBIN A1Con 2021 ADA RECOMMENDATION SEE BELOW Normal [facility] Comment on above: Result Comment: ADA RECOMMENDED LIMIT 4.0 - 6.0 ADA THERAPEUTIC TARGET < 7.0 ACTION SUGGESTED > 7.0 Performed By: #### A 1C #### [facility] [address] [place] [address] Dr. Juan Pablo Kaminski Glucose [Mass/Vol] 120 mg/dL Normal [facility] Comment on above: Performed By: #### A 1C #### [facility] [address] [place] [address] Dr. Juan Pablo Kaminski HbA1c (Bld) [Mass fraction] 5.8 % Normal 4.5-6.2 [facility] Comment on above: Performed By: #### A 1C #### [facility] [address] [place] [address] Dr. Juan Pablo Kaminski PROF CHEM 8 (BAS METB)on Anion gap [Moles/Vol] 12.7 mmol/L Normal [facility] Comment on above: Performed By: #### A 1C #### [facility] [address] [place] [address] Dr. Juan Pablo Kaminski Calcium [Mass/Vol] 8.7 mg/dL Normal 8.5-10.1 [facility] Comment on above: Performed By: #### A 1C #### [facility] [address] [place] [address] Dr. Juan Pablo Kaimnski Chloride [Moles/Vol] 98 mmol/L Normal 98-107 [facility] Comment on above: Performed By: #### A 1C #### [facility] [address] [address] [address] Juan Pablo Kaminski CO2 [Moles/Vol] 28.0 mmol/L Normal 21.0-32.0 [facility] Comment on above: Performed By: #### A 1C #### [facility] [address] [place] [address] Dr. Juan Pablo Kaminski Creatinine [Mass/Vol] 1.07 mg/dL Normal 0.70-1.30 [facility] Comment on above: Performed By: #### A 1C #### [facility] [address] [place] [address] Dr. Juan Pablo Kaminski EGFR-AF KYRGYZ >60 Normal >=60 [facility] Comment on above: Performed By: #### A 1C #### [facility] [address] [place] [address] Dr. Juan Pablo Kaminski EGFR-NON AF KYRGYZ >60 Normal >=60 [facility] Comment on above: Performed By: #### A 1C #### [facility] [address] [address] [address] Juan Pablo Kaminski Glucose [Mass/Vol] 133 mg/dL Critically high 74-106 T [facility] Comment on above: Performed By: #### A 1C #### [facility] [address] [place] [address] Dr. Juan Pablo Kaminski Potassium [Moles/Vol] 4.7 mmol/L Normal 3.5-5.1 [facility] Comment on above: Performed By: #### A 1C #### [facility] [address] [address] [address] Juan Pablo Kaminski Sodium [Moles/Vol] 134 mmol/L Critically low 136-145 [facility] Comment on above: Performed By: #### A 1C #### [facility] [address] [place] [address] Dr. Juan Pablo Kaminski Urea nitrogen [Mass/Vol] 17.0 mg/dL Normal 7.0-18.0 [facility] Comment on above: Performed By: #### A 1C #### [facility] [address] [address] [address] Juan Pablo Kaminski Urea nitrogen/Creatinine [Mass ratio] 15.9 mg/mg Normal [facility] Comment on above: Performed By: #### A 1C #### [facility] [address] [place] [address] Dr. Juan Pablo Kaminski SGPTon 10-21-2021 ALT [Catalytic activity/Vol] 31 U/L Normal 16-63 [facility] Comment on above: Performed By: #### A 1C #### [facility] [address] [place] [address] Dr. Juan Pablo Kaminski GLYCOHEMOGLOBIN A1Con 2021 ADA RECOMMENDATION SEE BELOW Normal [facility] Comment on above: Result Comment: ADA RECOMMENDED LIMIT 4.0 - 6.0 ADA THERAPEUTIC TARGET < 7.0 ACTION SUGGESTED > 7.0 Performed By: #### A 1C #### [facility] [address] [place] [address] Dr. Juan Pablo Kaminski Glucose [Mass/Vol] 131 mg/dL Normal [facility] Comment on above: Performed By: #### A 1C #### [facility] [address] [place] [address] Dr. Juan Pablo Kaminski HbA1c (Bld) [Mass fraction] 6.2 % Normal 4.5-6.2 [facility] Comment on above: Performed By: #### A 1C #### [facility] [address] [place] [address] Dr. Juan Pablo Kaminski Vital Signs Date Time Vital Sign Value Performing Clinician Denis coles 02-08-2024 08:32-0500 Body mass index (BMI) [Ratio] 28.12 kg/m2 Leticia Milian APRN.CNP Work Phone: [facility] 02-08-2024 08:32-0500 Body weight 102.06 kg Leticia Milian APRN.CNP Work Phone: [facility] 02-08-2024 08:32-0500 Diastolic blood pressure 58 mm[Hg] Leticia Milian APRN.CNP Work Phone: [facility] 02-08-2024 08:32-0500 Heart rate 54 /min Leticia Felderdaksha NUÑEZ.COMPUTATIONAL SCIENTIST Work Phone: [facility] 02-08-2024 08:32-0500 Systolic blood pressure 119 mm[Hg] Leticia Milian W[employer]ER [employer].COMPUTATIONAL SCIENTIST Work Phone: [facility] 02-01-2024 13:25-0500 Body height 190.[address] [facility] 02-01-2024 13:25-0500 Body mass index (BMI) [Ratio] 28.5 kg/m2 [facility] 02-01-2024 13:25-0500 Body weight 103.[address] [facility] 02-01-2024 13:25-0500 Diastolic blood pressure 74 mm[Hg] [facility] 02-01-2024 13:25-0500 Heart rate 63 /min [facility] 02-01-2024 13:25-0500 Respiratory rate 63 /min [facility] 02-01-2024 13:25-0500 Systolic blood pressure 135 mm[Hg] [facility] 12-28-2023 08:30-0400 Body height 190.[address] [facility] 12-28-2023 08:30-0400 Body mass index (BMI) [Ratio] 27.8 kg/m2 [facility] 12-28-2023 08:30-0400 Body weight 100.[address] [facility] 12-28-2023 08:30-0400 Diastolic blood pressure 66 mm[Hg] [facility] 12-28-2023 08:30-0400 Heart rate 71 /min [facility] 12-28-2023 08:30-0400 Respiratory rate 12 /min [facility] 12-28-2023 08:30-0400 Systolic blood pressure 121 mm[Hg] [facility] 09-23-2023 08:35-0400 Body height 190.5 cm DO Campbell Ball Work Phone: [facility] 09-23-2023 08:35-0400 Body mass index (BMI) [Ratio] 27.8 kg/m2 DO Campbell Ball Work Phone: [facility] 09-23-2023 08:35-0400 Body weight 100.86 kg DO Campbell Ball Work Phone: [facility] 09-23-2023 08:35-0400 Diastolic blood pressure 68 mm[Hg] DO Campbell Ball Work Phone: [facility] 09-23-2023 08:35-0400 Heart rate 70 /min DO Campbell Ball Work Phone: [facility] 09-23-2023 08:35-0400 Respiratory rate 12 /min DO Campbell Ball Work Phone: [facility] 09-23-2023 08:35-0400 Systolic blood pressure 141 mm[Hg] DO Campbell Ball Work Phone: [facility] 08-04-2023 08:59-0400 Body mass index (BMI) [Ratio] 27.5 kg/m2 Leticia [place] [employer].COMPUTATIONAL SCIENTIST Work Phone: [facility] 08-04-2023 08:59-0400 Body weight 99.79 kg Leticia Rukhsana [employer]ER [employer].COMPUTATIONAL SCIENTIST Work Phone: [facility] 08-04-2023 08:59-0400 Diastolic blood pressure 56 mm[Hg] Leticia [place] [employer].COMPUTATIONAL SCIENTIST Work Phone: [facility] 08-04-2023 08:59-0400 Heart rate 65 /min Leticia Rukhsana [employer]ER [employer].COMPUTATIONAL SCIENTIST Work Phone: [facility] 08-04-2023 08:59-0400 Systolic blood pressure 130 mm[Hg] Leticia [place] [employer].COMPUTATIONAL SCIENTIST Work Phone: [facility] 07-09-2023 13:38-0400 Body height 190.5 cm DO Campbell Ball Work Phone: [facility] 07-09-2023 13:38-0400 Body mass index (BMI) [Ratio] 28 kg/m2 DO Campbell Ball Work Phone: [facility] 07-09-2023 13:38-0400 Body weight 101.6 kg DO Campbell Ball Work Phone: [facility] 07-09-2023 13:38-0400 Diastolic blood pressure 60 mm[Hg] DO Campbell Ball Work Phone: [facility] 07-09-2023 13:38-0400 Heart rate 78 /min DO Campbell Ball Work Phone: [facility] 07-09-2023 13:38-0400 Systolic blood pressure 143 mm[Hg] DO Campbell Ball Work Phone: [facility] 06-23-2023 09:16-0400 Body height 190.5 cm DO Campbell Ball Work Phone: [facility] 06-23-2023 09:16-0400 Body mass index (BMI) [Ratio] 28 kg/m2 DO Campbell Ball Work Phone: [facility] 06-23-2023 09:16-0400 Body weight 101.6 kg DO Campbell Ball Work Phone: [facility] 06-23-2023 09:16-0400 Diastolic blood pressure 64 mm[Hg] DO Campbell Ball Work Phone: [facility] 06-23-2023 09:16-0400 Heart rate 69 /min DO Campbell Ball Work Phone: [facility] 06-23-2023 09:16-0400 Respiratory rate 16 /min DO Campbell Ball Work Phone: [facility] 06-23-2023 09:16-0400 Systolic blood pressure 147 mm[Hg] DO Campbell Ball Work Phone: [facility] 05-21-2023 10:53-0500 Body height 190.5 cm DO Campbell Ball Work Phone: [facility] 05-21-2023 10:53-0500 Body mass index (BMI) [Ratio] 27 kg/m2 DO Campbell Ball Work Phone: [facility] 05-21-2023 10:53-0500 Body weight 98.03 kg DO Campbell Ball Work Phone: [facility] 05-21-2023 10:53-0500 Diastolic blood pressure 77 mm[Hg] DO Campbell Ball Work Phone: [facility] 05-21-2023 10:53-0500 Heart rate 76 /min DO Campbell Ball Work Phone: [facility] 05-21-2023 10:53-0500 Respiratory rate 12 /min DO Campbell Ball Work Phone: [facility] 05-21-2023 10:53-0500 Systolic blood pressure 133 mm[Hg] DO Campbell Ball Work Phone: [facility] 05-15-2023 13:10-0500 Body temperature 98.6 [degF] DO Campbell Ball Work Phone: [facility] 05-15-2023 13:10-0500 Diastolic blood pressure 90 mm[Hg] DO Campbell Ball Work Phone: [facility] 05-15-2023 13:10-0500 Heart rate 90 /min DO Campbell Ball Work Phone: [facility] 05-15-2023 13:10-0500 Respiratory rate 18 /min DO Campbell Ball Work Phone: [facility] 05-15-2023 13:10-0500 SaO2% (BldA) [Mass fraction] 97 % DO Campbell Ball Work Phone: [facility] 05-15-2023 13:10-0500 Systolic blood pressure 181 mm[Hg] DO Campbell Ball Work Phone: [facility] 05-15-2023 10:56-0500 Body height 190.5 cm DO Campbell Ball Work Phone: [facility] 05-15-2023 10:56-0500 Body weight 99.9 kg DO Campbell Ball Work Phone: [facility] 04-21-2023 14:30-0500 Body height 190.5 cm Campbell Ball Other [facility] Other 04-21-2023 14:30-0500 Body mass index (BMI) [Ratio] 28.07 kg/m2 Campbell Ball Other [facility] Other 04-21-2023 14:30-0500 Body weight 101.88 kg Campbell Ball Other [facility] Other 04-21-2023 14:30-0500 Diastolic blood pressure 68 mm[Hg] Campbell Ball Other [facility] Other 04-21-2023 14:30-0500 Respiratory rate 12 /min Campbell Ball Other [facility] Other 04-21-2023 14:30-0500 Systolic blood pressure 129 mm[Hg] Campbell Ball Other [facility] Other 03-17-2023 10:30-0500 Body height 190.5 cm Campbell Ball Other [facility] Other 03-17-2023 10:30-0500 Body mass index (BMI) [Ratio] 27.55 kg/m2 Campbell Ball Other [facility] Other 03-17-2023 10:30-0500 Body weight 99.97 kg Campbell Ball Other [facility] Other 03-17-2023 10:30-0500 Diastolic blood pressure 67 mm[Hg] Campbell Ball Other [facility] Other 03-17-2023 10:30-0500 Respiratory rate 12 /min Campbell Ball Other [facility] Other 03-17-2023 10:30-0500 Systolic blood pressure 159 mm[Hg] Campbell Ball Other [facility] Other 02-23-2023 09:30-0500 Body height 190.5 cm Campbell Ball Other [facility] Other 02-23-2023 09:30-0500 Body mass index (BMI) [Ratio] 28.02 kg/m2 Campbell Ball Other [facility] Other 02-23-2023 09:30-0500 Body weight 101.7 kg Campbell Ball Other [facility] Other 02-23-2023 09:30-0500 Diastolic blood pressure 78 mm[Hg] Campbell Ball Other [facility] Other 02-23-2023 09:30-0500 Respiratory rate 12 /min Campbell Ball Other [facility] Other 02-23-2023 09:30-0500 Systolic blood pressure 157 mm[Hg] Campbell Ball Other [facility] Other 02-19-2023 10:45-0500 Body height 190.5 cm Campbell Ball Other [facility] Other 02-19-2023 10:45-0500 Body mass index (BMI) [Ratio] 28 kg/m2 Campbell Ball Other [facility] Other 02-19-2023 10:45-0500 Body weight 101.61 kg Campbell Ball Other [facility] Other 02-19-2023 10:45-0500 Diastolic blood pressure 72 mm[Hg] Campbell Ball Other [facility] Other 02-19-2023 10:45-0500 Respiratory rate 12 /min Campbell Ball Other [facility] Other 02-19-2023 10:45-0500 Systolic blood pressure 144 mm[Hg] Campbell Ball Other [facility] Other 02-02-2023 13:37-0500 Body weight 102.06 kg Leticia Rukhsana W[employer]ER [employer].COMPUTATIONAL SCIENTIST Work Phone: [facility] 02-02-2023 13:37-0500 Diastolic blood pressure 70 mm[Hg] Leticia [place] [employer].COMPUTATIONAL SCIENTIST Work Phone: [facility] 02-02-2023 13:37-0500 Heart rate 65 /min Leticia Rukhsana W[employer]ER [employer].COMPUTATIONAL SCIENTIST Work Phone: [facility] 02-02-2023 13:37-0500 Systolic blood pressure 146 mm[Hg] Leticia [place] [employer].COMPUTATIONAL SCIENTIST Work Phone: [facility] 09-22-2022 12:15-0400 Body height 190.5 cm Campbell Ball Other [facility] Other 09-22-2022 12:15-0400 Diastolic blood pressure 82 mm[Hg] Campbell Ball Other [facility] Other 09-22-2022 12:15-0400 Systolic blood pressure 135 mm[Hg] Campbell Ball Other [facility] Other 09-17-2022 09:00-0400 Body height 190.5 cm Campbell Ball Other [facility] Other 09-17-2022 09:00-0400 Body mass index (BMI) [Ratio] 27.57 kg/m2 Campbell Ball Other [facility] Other 09-17-2022 09:00-0400 Body weight 100.06 kg Campbell Ball Other [facility] Other 09-17-2022 09:00-0400 Diastolic blood pressure 62 mm[Hg] Campbell Ball Other [facility] Other 09-17-2022 09:00-0400 Respiratory rate 12 /min Campbell Ball Other [facility] Other 09-17-2022 09:00-0400 Systolic blood pressure 128 mm[Hg] Campbell Ball Other [facility] Other 06-18-2022 10:00-0400 Body height 190.5 cm Campbell Ball Other [facility] Other 06-18-2022 10:00-0400 Body mass index (BMI) [Ratio] 28.02 kg/m2 Campbell Ball Other [facility] Other 06-18-2022 10:00-0400 Body weight 101.7 kg Campbell Ball Other [facility] Other 06-18-2022 10:00-0400 Diastolic blood pressure 62 mm[Hg] Campbell Ball Other [facility] Other 06-18-2022 10:00-0400 Respiratory rate 12 /min Campbell Ball Other [facility] Other 06-18-2022 10:00-0400 Systolic blood pressure 119 mm[Hg] Campbell Ball Other [facility] Other 04-08-2022 12:00-0500 Body height 190.5 cm Campbell Ball Other [facility] Other 04-08-2022 12:00-0500 Body mass index (BMI) [Ratio] 27.82 kg/m2 Campbell Ball Other [facility] Other 04-08-2022 12:00-0500 Body temperature 97.1 [degF] Campbell Ball Other [facility] Other 04-08-2022 12:00-0500 Body weight 100.97 kg Campbell Ball Other [facility] Other 04-08-2022 12:00-0500 Diastolic blood pressure 68 mm[Hg] Campbell Ball Other [facility] Other 04-08-2022 12:00-0500 SaO2% (BldA) [Mass fraction] 97 % Campbell Ball Other [facility] Other 04-08-2022 12:00-0500 Systolic blood pressure 124 mm[Hg] Campbell Ball Other [facility] Other 03-20-2022 10:00-0500 Body height 190.5 cm Campbell Ball Other [facility] Other 03-20-2022 10:00-0500 Body mass index (BMI) [Ratio] 27.95 kg/m2 Campbell Ball Other [facility] Other 03-20-2022 10:00-0500 Body weight 101.42 kg Campbell Ball Other [facility] Other 03-20-2022 10:00-0500 Diastolic blood pressure 60 mm[Hg] Campbell Ball Other [facility] Other 03-20-2022 10:00-0500 Respiratory rate 12 /min Campbell Ball Other [facility] Other 03-20-2022 10:00-0500 Systolic blood pressure 112 mm[Hg] Campbell Ball Other [facility] Other 01-08-2022 08:47-0400 Body weight 97.52 kg [...] 98 [degF] DO Campbell Ball Work Phone: [facility] 12-26-2021 08:32-0400 Diastolic blood pressure 62 mm[Hg] DO Campbell Ball Work Phone: [facility] 12-26-2021 08:32-0400 Heart rate 75 /min DO Campbell Ball Work Phone: [facility] 12-26-2021 08:32-0400 Respiratory rate 18 /min DO Campbell Ball Work Phone: [facility] 12-26-2021 08:32-0400 SaO2% (BldA) [Mass fraction] 98 % DO Campbell Ball Work Phone: [facility] 12-26-2021 08:32-0400 Systolic blood pressure 146 mm[Hg] DO Campbell Ball Work Phone: [facility] 12-17-2021 16:22-0400 Body height 190.5 cm DO Campbell Ball Work Phone: [facility] 12-17-2021 16:22-0400 Body weight 97.52 kg DO Campbell Ball Work Phone: [facility] 12-17-2021 16:19-0400 Body temperature 98.4 [degF] DO Campbell Ball Work Phone: [facility] 12-17-2021 16:19-0400 Diastolic blood pressure 63 mm[Hg] DO Campbell Ball Work Phone: [facility] 12-17-2021 16:19-0400 Heart rate 66 /min DO Campbell Ball Work Phone: [facility] 12-17-2021 16:19-0400 Respiratory rate 16 /min DO Campbell Ball Work Phone: [facility] 12-17-2021 16:19-0400 SaO2% (BldA) [Mass fraction] 96 % DO Campbell Ball Work Phone: [facility] 12-17-2021 16:19-0400 Systolic blood pressure 135 mm[Hg] DO Campbell Ball Work Phone: [facility] 12-16-2021 14:41-0400 Diastolic blood pressure 62 mm[Hg] Leonard Dugan MD Work Phone: [place] [...] 97.5 [degF] DO Campbell Ball Work Phone: [facility] 12-11-2021 18:25-0400 Diastolic blood pressure 88 mm[Hg] DO Campbell Ball Work Phone: [facility] 12-11-2021 18:25-0400 Heart rate 67 /min DO Campbell Ball Work Phone: [facility] 12-11-2021 18:25-0400 Respiratory rate 20 /min DO Campbell Ball Work Phone: [facility] 12-11-2021 18:25-0400 SaO2% (BldA) [Mass fraction] 99 % DO Campbell Ball Work Phone: [facility] 12-11-2021 18:25-0400 Systolic blood pressure 175 mm[Hg] DO Campbell Ball Work Phone: [facility] 12-11-2021 16:57-0400 Body height 190.5 cm DO Campbell Ball Work Phone: [facility] 12-11-2021 16:57-0400 Body weight 98.5 kg DO Campbell Ball Work Phone: [facility] 12-10-2021 10:50-0400 Body weight 95.25 kg Nurse [...] 12-09-2021 14:27-0400 Body weight 95.25 kg [employer] [facility] Work Phone: [facility] 12-09-2021 14:27-0400 Diastolic blood pressure 68 mm[Hg] [employer] [facility] Work Phone: [facility] 12-09-2021 14:27-0400 Heart rate 70 /min [employer] [facility] Work Phone: [facility] 12-09-2021 14:27-0400 Systolic blood pressure 164 mm[Hg] [employer] [facility] Work Phone: [facility] [...] Date Encounter Type Care Provider Facility Start: 02-11-2024 End: 02-11-2024 ambulatory CAMPBELL SAAVEDRA Facility:[facility] Start: 02-08-2024 End: 02-08-2024 ambulatory CAMPBELL SAAVEDRA Facility:[facility] Start: 02-08-2024 End: 02-08-2024 Patient encounter procedure Leticia Milian APRN.CNP Work Phone: Urology Comment on above: Recurrent UTI (Prima ry Dx); Benign prostatic hyperplasia, unspecified whether lower urinary tract symptoms present; Incomplete bladder emptying Start: 02-01-2024 End: 02-01-2024 ambulatory [facility] Work Phone: Start: 02-01-2024 End: 02-01-2024 Patient encounter procedure [place] [facility] Work Phone: Start: 01-30-2024 Non-patient / Non-visit [facility] Work Phone: Start: 12-30-2023 Non-patient / Non-visit [facility] Work Phone: Start: 12-28-2023 End: 12-28-2023 ambulatory [facility] Work Phone: Start: 12-28-2023 End: 12-28-2023 Patient encounter procedure [facility] Work Phone: Start: 12-25-2023 Patient encounter procedure [facility] Start: 12-17-2023 End: 12-17-2023 Bamboo flowsheet Sterling Kin Torres DO Work Phone: [facility] Start: 12-17-2023 End: 12-17-2023 Bamboo flowsheet Sterling Kin Torres DO Work Phone: [facility] Start: 12-17-2023 End: 12-17-2023 Clinisync Result Encounter Sterling Torres DO Work Phone: [facility] External Department Unsolicited Start: 12-17-2023 End: 12-17-2023 ambulatory Sterling Torres [place] [place] Start: 12-17-2023 End: 12-17-2023 Patient encounter procedure Sterling Torres [facility] Start: 12-17-2023 End: 12-17-2023 ambulatory STERLING TORRES Not Available Start: 12-15-2023 End: 12-15-2023 ambulatory [facility] Work Phone: Start: 12-15-2023 End: 12-15-2023 Patient encounter procedure [facility] Work Phone: Start: 09-23-2023 End: 09-23-2023 ambulatory DO Campbell Saavedra Work Phone: [facility] Work Phone: Start: 09-23-2023 End: 09-23-2023 Patient encounter procedure DO Campbell Saavedra Work Phone: [facility] Work Phone: Start: 08-04-2023 Non-patient / Non-visit DO Lenin Saavedra Work Phone: [facility] Work Phone: Start: 08-04-2023 End: 08-04-2023 ambulatory CAMPBELL E BALL Facility:[facility] Start: 08-04-2023 End: 08-04-2023 Patient encounter procedure Leticia Kin Milian APRN.COMPUTATIONAL SCIENTIST Work Phone: Urology Comment on above: Benign prostatic hyp erplasia, unspecified whether lower urinary tract symptoms present (Primary Dx); Recurrent UTI; Nocturia Start: 07-26-2023 Non-patient / Non-visit DO Lenin monika Ball Work Phone: [facility] Work Phone: Start: 07-26-2023 End: 07-26-2023 ambulatory CAMPBELL E BALL Facility:[facility] Start: 07-22-2023 End: 07-22-2023 ambulatory Jhon [facility] Facility:[facility] Start: 07-22-2023 End: 07-22-2023 ambulatory DO Campbell Ball Work Phone: [facility] Work Phone: Start: 07-22-2023 End: 07-22-2023 Departed Referred DO Campbell Ball Work Phone: [facility] Start: 07-22-2023 Non-patient / Non-visit DO Lenin frank Ball Work Phone: [facility] Work Phone: Start: 07-12-2023 End: 07-12-2023 ambulatory [facility] Facility:[facility] Start: 07-12-2023 End: 07-12-2023 ambulatory DO Campbell Ball Work Phone: [facility] Work Phone: Start: 07-12-2023 End: 07-12-2023 Departed Referred DO Campbell Ball Work Phone: [facility] Start: 07-09-2023 End: 07-09-2023 ambulatory DO Campbell Ball Work Phone: [facility] Work Phone: Start: 07-09-2023 End: 07-09-2023 Patient encounter procedure DO Campbell Ball Work Phone: [facility] Work Phone: Start: 07-06-2023 Non-patient / Non-visit DO Lenin monika Ball Work Phone: [facility] Work Phone: Start: 06-23-2023 End: 06-23-2023 ambulatory DO Campbell Ball Work Phone: [facility] Work Phone: Start: 06-23-2023 End: 06-23-2023 Patient encounter procedure DO Campbell Ball Work Phone: [facility] Work Phone: Start: 05-31-2023 Non-patient / Non-visit DO Lenin monika Ball Work Phone: [facility] Work Phone: Start: 05-21-2023 End: 05-21-2023 Patient encounter procedure DO Campbell Ball Work Phone: [facility] Work Phone: Start: 05-15-2023 End: 05-15-2023 Emergency department patient visit Low Carter Facility:[facility] Start: 05-15-2023 End: 05-15-2023 Emergency department patient visit DO Campbell Ball Work Phone: [facility]-Emergency Room Work Phone: Start: 05-03-2023 Non-patient / Non-visit DO Lenin monika Ball Work Phone: [facility] Work Phone: Start: 04-30-2023 Non-patient / Non-visit DO Lenin monika Ball Work Phone: [facility] Work Phone: Start: 04-21-2023 End: 04-21-2023 ambulatory Campbell Saavedra Other [facility] Other Start: 04-21-2023 Transitional care manage srvc 14 day discharge Campbell Ball [facility] Start: 04-19-2023 End: 04-19-2023 ambulatory Campbell Saavedra Other [facility] Other Start: 04-19-2023 Telephone encounter Campbell Ball [facility] Start: 04-15-2023 End: 04-15-2023 ambulatory Campbell Quentin Other [facility] Other Start: 04-15-2023 Telephone encounter Campbell Ball [facility] Start: 03-17-2023 End: 03-17-2023 ambulatory Campbell Quentin Other [facility] Other Start: 03-17-2023 Transitional care manage srvc 14 day discharge Campbell Ball [facility] Start: 03-04-2023 End: 03-04-2023 ambulatory Campbell Saavedra Other [facility] Other Start: 03-04-2023 Telephone encounter Campbell Ball [facility] Start: 02-23-2023 End: 02-23-2023 ambulatory Campbell Quentin Other [facility] Other Start: 02-23-2023 Office outpatient vi sit 15 minutes Campbell Ball [facility] Start: 02-23-2023 Telephone encounter Campbell Ball [facility] Start: 02-19-2023 End: 02-19-2023 ambulatory Campbell Ball Other [facility] Other Start: 02-19-2023 Office outpatient vi sit 15 minutes Campbell Ball [facility] Start: 02-02-2023 End: 02-02-2023 Patient encounter procedure Leticia Milian APRN.COMPUTATIONAL SCIENTIST Work Phone: Urology Comment on above: BPH with obstruction /lower urinary tract symptoms (Primary Dx); Recurrent UTI; Weak urinary stream Start: 01-13-2023 End: 01-13-2023 Emergency department patient visit Low Ewing Jonaszack Facility:[facility] Start: 01-13-2023 End: 01-13-2023 Emergency department patient visit DO Campbell Saavedra Work Phone: [facility]-Emergency Room Work Phone: Start: 12-21-2022 End: 12-21-2022 ambulatory Campbell Saavedra Other [facility] Other Start: 12-21-2022 Telephone encounter Campbell Saavedra [facility] Start: 09-22-2022 End: 09-22-2022 ambulatory Campbell Saavedra Other [facility] Other Start: 09-22-2022 Office outpatient vi sit 15 minutes Campbell Saavedra [facility] Start: 09-20-2022 End: 09-20-2022 ambulatory Cornell Baptiste Other [facility] Other Start: 09-20-2022 Encounter by gabbi Baptiste [facility] Start: 09-17-2022 End: 09-17-2022 ambulatory Campbell Saavedra Other [facility] Other Start: 09-17-2022 Office outpatient vi sit 25 minutes Campbell Saavedra [facility] Start: 09-15-2022 End: 09-15-2022 ambulatory Cornell Baptiste Other [facility] Other Start: 09-15-2022 Encounter by gabbi Baptiste [facility] Start: 06-25-2022 End: 06-26-[address] CAMPBELL SAAVEDRA Facility: Start: 06-18-2022 End: 06-18-2022 ambulatory Campbell Saavedra Other [facility] Other Start: 06-18-2022 Office outpatient vi sit 25 minutes Campbell Quentin [facility] Start: 06-02-2022 End: 06-03-[address] CAMPBELL SAAVEDRA Facility:[facility] Start: 04-08-2022 End: 04-08-2022 ambulatory Campbell Saavedra Other [facility] Other Start: 04-08-2022 Office outpatient vi sit 15 minutes Campbell Saavedra [facility] Start: 03-24-2022 End: 03-24-2022 ambulatory Campbell Saavedra Other [facility] Other Start: 03-24-2022 Telephone encounter Campbell Saavedra [facility] Start: 03-20-2022 Office outpatient vi sit 25 minutes Campbell Saavedra [facility] Start: 03-20-2022 End: 03-21-[address] CAMPBELL SAAVEDRA [facility] Other Start: 01-08-2022 End: 01-08-2022 Patient encounter procedure Leonard Dugan MD Work Phone: Urology Comment on above: Chronic epididymitis (Primary Dx); Left hydrocele; Weak urinary stream; BPH without obstruction/lower urinary tract symptoms; Epididymitis Start: 01-07-2022 Refill Leonard Dugan MD Work Phone: Urology Comment on above: Refill Request Start: 12-26-2021 End: 12-26-2021 ambulatory DO Campbell Saavedra Work Phone: [facility] Work Phone: Start: 12-26-2021 End: 12-26-2021 Discharged Recurring DO Campbell Saavedra Work Phone: [facility]-Infusion Therapy - O/P Start: 12-25-2021 End: 12-26-[address] CAMPBELL SAAVEDRA Facility:[facility] Start: 12-17-2021 End: 12-17-2021 Emergency department patient visit DO Campbell Saavedra Work Phone: [facility]-Emergency Room Start: 12-16-2021 End: 12-16-2021 Patient encounter procedure Leonard Dugan MD Work Phone: Urology Comment on above: Retention of urine ( Primary Dx); Flaccid bladder Start: 12-15-2021 Telephone encounter Leticia puentes APRN.CNP Work Phone: Urology Comment on above: Patient Update Start: 12-11-2021 End: 12-11-2021 Emergency department patient visit DO Campbell Saavedra Work Phone: [facility]-Emergency Room Start: 12-11-2021 Telephone encounter Leonard Dugan MD Work Phone: Urology Comment on above: Patient Update Start: 12-10-2021 End: 12-10-2021 Nursing evaluation of patient and report Nurse [facility] Work Phone: Urology Comment on above: Urinary tract infect ion without hematuria, site unspecified (Primary Dx); Feeling of incomplete bladder emptying; Benign prostatic hyperplasia with urinary retention Start: 12-09-2021 End: 12-09-2021 Nursing evaluation of patient and report [facility] Work Phone: Urology Comment on above: Urinary frequency (P rimary Dx); Urinary urgency; Urinary straining; Feeling of incomplete bladder emptying Start: 12-08-2021 Telephone encounter Leonard Dugan MD Work Phone: Urology Comment on above: Appointment (Resched ule catheter change) Start: 11-26-2021 End: 11-27-2021 Emergency department patient visit CAMPBELL SAAVEDRA Facility:[facility] Start: 11-21-2021 Telephone encounter Leonard Dugan MD Work Phone: Urology Comment on above: Smith Cath Problem; Hematuria Start: 11-19-2021 End: 11-19-[address] ROBIN BAPTISTE Facility: Start: 11-12-2021 End: 11-12-2021 Patient encounter procedure Leonard Dugan MD Work Phone: Urology Comment on above: BPH with obstruction /lower urinary tract symptoms (Primary Dx); Benign prostatic hyperplasia with urinary retention Start: 11-10-2021 Chart abstractmarlene Sanderson Work Phone: Urology Start: 11-07-2021 End: 11-07-2021 Emergency department patient visit RAN HOUSTON JR Facility:[facility] Start: 10-23-2021 End: 10-24-[address] CAMPBELL SAAVEDRA Facility:[facility] Start: 10-21-2021 End: 10-22-[address] CAMPBELL SAAVEDRA Facility:[facility] Start: 10-20-2021 Adult health examination Campbell Saavedra Other [facility] Other Start: 07-17-2021 End: 07-18-[address] CAMPBELL SAAVEDRA Facility:[facility] Start: 01-09-2020 End: 01-09-2020 Pre-procedure evaluation check Campbell Saavedra Other [facility] Other Procedures Date Procedure Procedure Detail Performing Clinician Start: 12-17-2023 End: 12-17-2023 Computerized ophthalmic imaging optic nerve Sterling Torres DO Work Phone: Start: 12-17-2023 [facility] [place] Sterling Torres DO Work Phone: Start: 12-17-2023 End: 12-17-2023 Oph medical xm&eval comprhnsv estab pt 1/> 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 2 diabetes mellitus (CMS/HCC) Sterling Torres DO Work Phone: Comment on above: Mild nonproliferative diabetic retinopat hy of both eyes without macular edema associated with type 2 diabetes mellitus (CMS/HCC) (Primary Dx); 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 of both eyes; Optic atrophy; Dry eyes; Blepharitis of upper and lower eyelids of both eyes, unspecified type Start: 07-26-2023 Urinalysis DO Campbell Saavedra Work Phone: Start: 07-26-2023 Urine culture DO Campbell Saavedra Work Phone: Start: 05-15-2023 Duplex scan of lower limb veins DO Campbell Quentin Work Phone: Start: 10-14-2021 Depression screening Campbell Saavedra Other Start: 10-03-2019 Transurethral prostatectomy Sterling Torres Start: 09-20-2019 Transurethral prostatectomy Sterling Torres Start: 07-27-2019 Cystourethroscopy with dilation of urethral stricture Sterling Torres Start: 03-23-2016 Screening for malignant neoplasm of colon Campbell Saavedra Other Start: 01-30-2015 Screening for malignant neoplasm of prostate Campbell Saavedra Other Appendectomy Sterling Torres Extraction of cataract Cora Torres Tonsillectomy Sterling haji Urine culture DO Campbell abbott Work Phone: Urine culture DO Campbell abbott Work Phone: Urine culture DO Campbell abbott Work Phone: Plan of Treatment Date Care Activity Detail Author Start: 07-25-2026 Diabetes Screening Diabetes Screenin [facility] Start: 05-10-2024 End: 05-10-2024 Patient encounter procedure 05/10/2024 9:00 AM EST Office Visit Urology [address] [place] [address] Leticia Milian, WINDER HAND.COMPUTATIONAL SCIENTIST [address] [place] [address] Return in about 3 months (around 05/10/2024) for rto for evaluation of BPH w obs/luts, AUA, PVR. Urology Comment on above: Return in about 3 mo nths (around 05/10/2024) for rto for evaluation of BPH w obs/luts, AUA, PVR. Start: 03-22-2024 End: 03-22-2024 Patient encounter procedure 03/22/2024 11:15 AM EST Office Visit [facility] [address] [place] [address] Sterling Torres, DO [address] [place] [address] [facility] Start: 02-08-2024 End: 05-09-2024 Bacteria identified in Urine by Culture URINE CULTURE Microbiology Routine Recurrent UTI Expected: 02/08/2024, Expires: 05/09/2024 [facility] Comment on above: Expected: 02/08/2024 , Expires: 05/09/2024 Start: 02-08-2024 End: 05-09-2024 Urinalysis complete panel - Urine URINALYSIS, WITH MICROSCOPIC Lab Routine Recurrent UTI Expected: 02/08/2024, Expires: 05/09/2024 [facility] Work Phone: Comment on above: Expected: 02/08/2024 , Expires: 05/09/2024 Start: 02-08-2024 End: 02-08-2024 Patient encounter procedure 02/08/2024 8:30 AM EST Office Visit Urology [address] [place] [address] Leticia Milian, WINDER HAND.COMPUTATIONAL SCIENTIST [address] [place] [address] Return in about 6 months (around 02/04/2024) for rto for evalution of BPH w obs/luts, UTI AUA, PVR . Urology Comment on above: Return in about 6 mo nths (around 02/04/2024) for rto for evalution of BPH w obs/luts, UTI AUA, PVR . Start: 12-17-2023 End: 12-17-2023 Patient encounter procedure 12/17/2023 9:30 AM EDT Office Visit [facility] [address] [place] [address] Sterling Torres, DO [address] [place] [address] Arrived [facility] Comment on above: Arrived Start: 11-14-2023 Covid-19 Vaccine () Covid-19 Vaccine () [facility] Start: 11-14-2023 Influenza vaccination Influenza Vacc ine (#1) [facility] Start: 03-15-2023 Advance Directive Discussion Advance Directive Discussion [facility] Start: 03-15-2023 Behavioral Health Screening Behavioral Health Screening [facility] Start: 12-28-2022 Urine microalbumin profile DTaP,Tdap,Td Vaccine (3 - Tdap) [facility] Start: 11-13-2022 Covid-19 Vaccine () Covid-19 Vaccine () [facility] Start: 03-15-2022 [...] Epididymitis Expected: 01/08/2022 (Approximate), Expires: 03/10/2022 [facility] Work Phone: Comment on above: Expected: 01/08/2022 (Approximate), Expires: 03/10/2022 Start: 01-08-2022 End: 03-10-2022 URINALYSIS, REFLEX MICROSCOPIC URINALYSIS, REFLEX MICROSCOPIC Lab Routine Left hydrocele Chronic epididymitis Weak urinary stream BPH without obstruction/lower urinary tract symptoms Epididymitis Expected: 01/08/2022 (Approximate), Expires: 03/10/2022 [facility] Work Phone: Comment on above: Expected: 01/08/2022 (Approximate), Expires: 03/10/2022 Start: 12-10-2021 End: 02-09-2022 Bacteria identified in Urine by Culture URINE CULTURE Microbiology Routine Urinary tract infection without hematuria, site unspecified Expected: 12/10/2021, Expires: 02/09/2022 [facility] Work Phone: Comment on above: Expected: 12/10/2021 , Expires: 02/09/2022 Start: 11-13-2021 Influenza vaccination INFLUENZA (#1) [facility] Start: 11-12-2021 URODYNAMICS URODYNAMICS Pr ocedures Routine 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 Expected: 11/12/2021 (Approximate) [facility] Work Phone: Comment on above: Expected: 11/12/2021 [...] 65+ Years (2 of 2 - PCV) [facility] Start: 1998 Hepatitis B Vaccine [...] [facility] Start: 1958 Anxiety Screening Anxiety Screening [facility] Start: 1958 Depression Screening Depression Scre ening [facility] Start: 1958 [...] Center Bacteria identified in Urine by Culture [facility] End: 02-02-2024 Bacteria identified in Urine by Culture URINE CULTURE Microbiology Routine Recurrent UTI 5 Occurrences starting 02/02/2023 until 02/02/2024 [facility] Work Phone: Comment on above: 5 Occurrences starti ng 02/02/2023 until 02/02/2024 Comprehensive metabo lic 2000 panel - Serum or Plasma [facility] Holter monitor study [facility] Patient Education [facility] Work Phone: Patient referral [facility] Work Phone: End: 01-14-2024 Urinalysis complete panel - Urine URINALYSIS, WITH MICROSCOPIC Lab Routine Recurrent UTI 5 Occurrences starting 02/02/2023 until 01/14/2024 [facility] Work Phone: Comment on above: 5 Occurrences starti ng 02/02/2023 until 01/14/2024 US Heart Tran[facility]horacic [facility] Immunizations Immunization Date Immunization Notes Care Provider Jens eid 12-15-2023 influenza, high dose seasonal, preservative-free [facility] 12-01-2022 influenza virus vaccine, unspecified formulation DO Campbell Quentin Work Phone: [facility] 12-01-2022 influenza, high dose seasonal, preservative-free Campbell Saavedra Other [employer] [facility] Other 12-19-2021 influenza virus vaccine, split virus (incl. purified surface antigen) Campbell Saavedra Other [employer] [facility] Other 12-19-2021 influenza virus vaccine, unspecified formulation DO Campbell Saavedra Work Phone: [facility] 12-10-2020 influenza virus vaccine, split virus (incl. purified surface antigen) Campbell Saavedra Other [facility] Other 12-10-2020 influenza virus vaccine, unspecified formulation DO Campbell Saavedra Work Phone: [facility] 01-09-2020 influenza virus vaccine, split virus (incl. purified surface antigen) Campbell Saavedra Other [facility] Other 01-09-2020 influenza virus vaccine, unspecified formulation DO [employer] Work Phone: [facility] 01-23-2019 influenza virus vaccine, live, attenuated, for intranasal use Sterling Torres [facility] 01-14-2018 influenza virus vaccine, split virus (incl. purified surface antigen) Campbell Saavedra Other [facility] Other 01-14-2018 influenza virus vaccine, unspecified formulation DO [facility] Work Phone: [facility] 12-30-2016 influenza virus vaccine, split virus (incl. purified surface antigen) Campbell Saavedra Other [facility] Other 12-30-2016 influenza virus vaccine, unspecified formulation DO Campbell Saavedra Work Phone: [facility] 03-16-2016 influenza virus vaccine, split virus (incl. purified surface antigen) Campbell Saavedra Other [facility] Other 03-16-2016 influenza virus vaccine, unspecified formulation DO [employer] mentor [employer] Work Phone: [facility] 05-01-2015 pneumococcal conjuga te vaccine, 13 valent Campbell Saavedra Other [facility] 05-01-2015 pneumococcal Conjuga te, unspecified formulation; Translations: [Need for prophylactic vaccination against Streptococcus pneumoniae (pneumococcus)] Campbell Saavedra Other [facility] Other 12-28-2012 tetanus and diphther ia toxoids, adsorbed, preservative free, for adult use (5 Lf of tetanus toxoid and 2 Lf of diphtheria toxoid) Campbell Saavedra Other [facility] 01-28-2012 diphtheria, tetanus toxoids and acellular pertussis vaccine, unspecified formulation Campbell Saavedra Other [facility] 01-20-2012 pneumococcal polysaccharide vaccine, 23 valent Campbell Saavedra Other [facility] 05-18-2011 pneumococcal polysaccharide vaccine, 23 valent Campbell Saavedra Other [facility] Payers Date Payer Category Payer Self-pay 2016 Unknown KRISTIN FOSTER [place] DICARE SUPPLEMENT [id number] 2016-Present [phone] [address] [place] [address] Indemnity [id number] 2003 Medicare [id number] 1959 Medicare [id number] 1959 Medicare [id number] 1938 Unknown [id number] 3 1938 Unknown [id number] 3 1938 Unknown [id number] [id number] 3 1938 Unknown [id number] [id number] 3 1938 Unknown [id number] [id number] 3 1938 Unknown [id number] [id number] 3 1938 Unknown [id number] [id number] 3 1938 Unknown [id number] [id number] 3 1938 Unknown [id number] [id number] 59 1938 Unknown [id number] [id number] 7 Medicare Medicare Outpatient [id number] Unknown [employer] [id number] Unknown [id number] 1 Unknown [id number] [id number] 1 Unknown [id number] 1 Unknown [id number] 1 Social History Date Type Detail Facility Start: 10-24-2009 End: 02-08-2024 Tobacco smoking status NHIS Ex-smoker [facility] Start: 03-15-1957 End: 03-15-1971 History of tobacco use Current smoker [facility] Start: 03-15-1957 End: 03-15-1971 History of tobacco use Cigarette Smoker [facility] Start: 10-24-2009 End: 07-28-2022 Cigarettes smoked current (pack per day) - Reported 1.5 [facility] Start: 11-07-2021 End: 02-08-2024 Alcohol intake Current drinker of alcohol (finding) [facility] Start: 1940 Sex Assigned At Not on file [facility] Start: 10-28-2021 End: 01-08-2022 Exposure to SARS-CoV-2 (event) Not sure [facility] Start: 12-11-2021 End: 05-15-2023 Tobacco smoking status NHIS Never smoked tobacco (finding) [facility] Start: 1940 Sex Assigned At Male [facility] Start: 12-16-2021 End: 02-08-2024 Tobacco use and exposure Smokeless tobacco non-user [facility] Start: 12-16-2021 End: 07-28-2022 Sex Assigned At [facility] National Score (1-10 0), lower number is lower risk 61 [facility] Start: 03-29-2023 Alcohol Comment 2-[address] [facility] Start: 12-16-2023 Sexual orientation Heterosexual (finding) [facility] Start: 02-01-2024 Sex Male (finding) [facility] Medical Equipment Procedure Code Equipment Code Equipment Origin al Text Equipment Identifier Dates [id number], [id number] Start: 10-23-2021 End: 08-04-2023 Comment on above: TEST HOME BLOOD SUGA R ONCE A DAY USE TO TEST HOME BLO OD SUGAR ONCE A DAY Clinical Notes 11-10-2021 to 02-08-2024 Patient InstructionsLeticia Milian APRN.CNP - 02/08/2024 8:22 AM EST Note Date & Type Note Facility 02-08-2024 Instructions Leticia Milian APRN.CNP - 02/08/2024 9:06 AM EST Need to have regular bowel moment with miralax to get going then metamucil daily to regulate Increase water intake Make sure you taking flowmax daily Go to lab and give urine for testing documented in this encounter [facility] 02-08-2024 Note HNO ID: [id number] Author: LETICIA MILIAN APRN.CNP Service: ? Author Type: Nurse Practitioner Type: Progress Notes Filed: 02/08/2024 09:06 Note Text: Norberto Washington [address] [facility] [address] HISTORY OF PRESENT ILLNESS: Seen 08/04/23 for BPH w obs/luts, UTI Pt is presently on rodent 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 antibiotic due to infection in toes that went to bone Stated that urinary symptoms have resolved with treatment. ROSAMARIA 11/10/21 - 10 gm, rubbery, no nodules AUA= 10 QOL 2 PVR=36 ML cysto 11-12-21 = 2.5 cm NON [...] bladder infection Coming for BPH w obs/luts, UTI, incomplete emptying (new finding today 02/08/24) Denies gross hematuria Denies burning with urination Pt stated that is having issue with constipation last BM a couple days ago CNK=161 ML Location: BPH w obs/luts, UTI Pain Character: none Severity Scale: see AUA score, see lab Duration: BPH w obs/luts, UTI [facility] SYMPTOMS SCORE. 1. INCOMPLETE EMPTYING 0 2. FREQUENCY 0 3. INTERMITTENCY 4 4. URGENCY 0 5. WEAK STREAM 3 6. STRAINING 4 7. NOCTURIA 2 TOTAL SCORE 13 QOL 2 No past medical history on file. No past surgical history on file. No family history on file. Social History Tobacco Use Smoking status: Former Current packs/day: 0.00 Average packs/day: 1.5 packs/day for 14.0 years (21.0 ttl pk-yrs) Types: Cigarettes Start date: 03/15/1957 Quit date: 03/15/1971 Years since quittin.9 Smokeless tobacco: Never Substance Use Topics Alcohol use: Yes Comment: social MEDICATIONS: Current Outpatient Medications Medication Sig apixaban (ELIQUIS) 2.5 mg tab(s) 5 mg two times a day. metoprolol succinate ER (TOPROL XL) 25 mg 24 hr tablet Take 1 tablet by mouth every afternoon. tamsulosin (FLOMAX) 0.4 mg Take 1 capsule [...] times daily. lisinopril(PRINIVIL 10 MG TAB) Take 20 mg by mouth once daily. TURMERIC ORAL Take by mouth. multivitamin (MULTIPLE VITAMINS ORAL) Take by mouth. vit A/vit C/vit E/zinc/copper (PRESERVISION AREDS ORAL) Take by mouth. cephALEXin (KEFLEX) 500 mg capsule Take 1 capsule by mouth every 12 hours. (Patient not taking: Reported on 02/08/2024) doxycycline hyclate (VIBRAMYCIN) 100 mg capsule (Patient not taking: Reported on 01/20/2022) amLODIPine (NORVASC) 2.5 mg tablet Amlodipine Active 5 MG PO Daily December 11, 2021 12:00am (Patient not taking: Reported on 02/02/2023) No current facility-administered medications for this visit. ALLERGY: ALLERGIES Allergen Reactions Cipro [Ciprofloxaci* GI Upset Sulfa (Sulfonamide * Rash == REVIEW OF SYSTEMS == GENERAL: No fever, no fatigue and no [...] hematomas or no bleeding from the gums. = PHYSICAL EXAM: = VITALS: BP 119/58 Pulse (!) 54 Wt 102.1 kg (225 lb) BMI 28.12 [...] flomax -LIOR -DM -UTI TURP around 2019 outs (more content not included)... [facility] 02-08-2024 History of Presen t illness Narrative Norberto Washington [address] [facility] [address] HISTORY OF PRESENT ILLNESS: Seen 08/04/23 for BPH w obs/luts, UTI Pt is presently on penitentiary antibiotic due to infection in toes that went to bone Stated that urinary symptoms have resolved with treatment. ROSAMARIA 11/10/21 - 10 gm, rubbery, no nodules AUA= 10 QOL 2 PVR=36 ML cysto 11-12-21 = 2.5 cm NON [...] bladder infection Coming for BPH w obs/luts, UTI, incomplete emptying (new finding today 02/08/24) Denies gross hematuria Denies burning with urination Pt stated that is having issue with constipation last BM a couple days ago XBQ=840 ML Location: BPH w obs/luts, UTI Pain Character: none Severity Scale: see AUA score, see lab Duration: BPH w obs/luts, UTI [facility] [employer] SYMPTOMS SCORE. 1. INCOMPLETE EMPTYING 0 2. FREQUENCY 0 3. INTERMITTENCY 4 4. URGENCY 0 5. WEAK STREAM 3 6. STRAINING 4 7. NOCTURIA 2 TOTAL SCORE 13 QOL 2 No past medical history on file. No past surgical history on file. No family history on file. Social History Tobacco Use Smoking status: Former Current packs/day: 0.00 Average packs/day: 1.5 packs/day for 14.0 years (21.0 ttl pk-yrs) Types: Cigarettes Start date: 03/15/1957 Quit date: 03/15/1971 Years since quittin.9 Smokeless tobacco: Never Substance Use Topics Alcohol use: Yes Comment: social MEDICATIONS: Current Outpatient Medications Medication Sig apixaban (ELIQUIS) 2.5 mg tab(s) 5 mg two times a day. metoprolol succinate ER (TOPROL XL) 25 mg 24 hr tablet Take 1 tablet by mouth every afternoon. tamsulosin (FLOMAX) 0.4 mg Take 1 capsule [...] times daily. lisinopril(PRINIVIL 10 MG TAB) Take 20 mg by mouth once daily. TURMERIC ORAL Take by mouth. multivitamin (MULTIPLE VITAMINS ORAL) Take by mouth. vit A/vit C/vit E/zinc/copper (PRESERVISION AREDS ORAL) Take by mouth. cephALEXin (KEFLEX) 500 mg capsule Take 1 capsule by mouth every 12 hours. (Patient not taking: Reported on 02/08/2024) doxycycline hyclate (VIBRAMYCIN) 100 mg capsule (Patient not taking: Reported on 01/20/2022) amLODIPine (NORVASC) 2.5 mg tablet Amlodipine Active 5 MG PO Daily December 11, 2021 12:00am (Patient not taking: Reported on 02/02/2023) No current facility-administered medications for this visit. ALLERGY: ALLERGIES Allergen Reactions Cipro [Ciprofloxaci* GI Upset Sulfa (Sulfonamide * Rash == REVIEW OF SYSTEMS == GENERAL: No fever, no fatigue and no [...] hematomas or no bleeding from the gums. = PHYSICAL EXAM: = VITALS: BP 119/58 Pulse (!) 54 Wt 102.1 kg (225 lb) BMI 28.12 [...] Urology PLAN: (Management Options): AUA, PVR today Encourage to increase water Encourage better BM pt stated that will take miralax once starting to go will take metamucil Standing order for urine place will get only if symptomatic Cont flomax PCP is ordering Rto 3 months for evaluation of BPH w obs/luts, AUA, PVR PRN if symptomatic Medical Decision Making: Problems: Moderate: 1+ chronic illnesses with change Data: Unique test result(s) reviewed: 1 Unique test(s) ordered: 2 Risk: Low: Low risk from testing/treatment Medical Decision Making Level: 4 - Moderate Leticia Milian APRN.COMPUTATIONAL SCIENTIST documented in this encounter [facility] 12-28-2023 Evaluation note Diagnosis Onset Date Resolution Chronic kidney disease acute Oc tob2023 8:09am Chronic venous insufficiency of lower extremity acute December 27 8:09am Elevated cholesterol acute Octo neftali 2023 8:09am Heart murmur acute December 8:09am HTN (hypertension) acute Decobe r 2023 8:09am Medicare annual wellness visit, subsequent acute December 28, 2023 8:09am Overweight acute December 28, 2023 8:09am Type 2 diabetes mellitus with diabetic polyneuropathy acute December 27 8:09am Type 2 diabetes mellitus with hyperglycemia acute December 28, 2023 8:09am Aortic stenosis, mild acute Nov 2023 1:24pm Atrial flutter acute January 132023 1:24pm Chronic kidney disease acute No vember 2023 1:24pm Chronic venous insufficiency of lower extremity acute January 31, 2 024 1:24pm Elevated cholesterol acute Nove mber 2023 1:24pm HTN (hypertension) acute Novemb er 2023 1:24pm Type 2 diabetes mellitus with diabetic polyneuropathy acute January 31, 2 024 1:24pm Type 2 diabetes mellitus with hyperglycemia acute January 1:24pm [facility] Work Phone: 1(180) 130-146510-04-2024 NoteRight Eye Quality was good. Scan locations included subfoveal. Progression has been stable. Findings include normal observations. Left Eye Quality was good. Scan locations included subfoveal. Progression has been stable. Findings include normal observations. Notes Good scan with normal appearanceCass Medical [id number] History of Present illness Narrative* Sterling Torres, DO - 12/17/2023 9:30 AM EDT Images from the original note were not [...] yearly dilated examinations, but to contact us imm ediately for any problems or concerns. Continue aggressive [...] lid scrubs were recommended. documented in this encounterCass Medical [id number] History of Present illness Narrative* Leticia Milian, [facility] - 08/04/2023 8:58 AM EDT Norberto Mccoy Sin [address] [facility] [address] HISTORY OF PRESENT ILLNESS: Seen 02/02/23 for [...] finding today 08/04/23) Pt is presently on rodent 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 antibiotic due to infection in toes that went to bone Stated that urinary symptoms have resolved with treatment. PVR=36 ML UA 07/26/23=trace leuk esterase Culture 07/26/23=<10,000 CFU/ml Lactose positive gram negative bacilli Abnormal A1C 07/26/23=6.4 Location: BPH w obs/luts, UTI Pain Character: none Severity Scale: see AUA score, see lab Duration: BPH w obs/luts, UTI [facility] [employer] SYMPTOMS SCORE. 1. INCOMPLETE EMPTYING [...] Making Level: 4 - Moderate Leticia Milian APRN.COMPUTATIONAL SCIENTIST documented in this encounterC[facility]24 NoteHNO ID: [id number] Author: LETICIA MILIAN APRN.COMPUTATIONAL SCIENTIST Service: ? Author Type: Nurse Practitioner Type: Progress Notes Filed: 08/04/2023 09:23 Note Text: Norberto Washington [address] [facility] [address] HISTORY OF PRESENT ILLNESS: Seen 02/02/23 for [...] finding today 08/04/23) Pt is presently on penitentiary antibiotic due to infection in toes that went to bone Stated that urinary symptoms have resolved with treatment. PVR=36 ML UA 07/26/23=trace leuk esterase Culture 07/26/23=<10,000 CFU/ml Lactose positive gram negative bacilli Abnormal A1C 07/26/23=6.4 Location: BPH w obs/luts, UTI Pain Character: none Severity Scale: see AUA score, see lab Duration: BPH w obs/luts, UTI [facility] [employer] SYMPTOMS SCORE. 1. INCOMPLETE EMPTYING [...] Standing order for urin (more content not included)...[facility] 04-21-2023 Evaluation note* Encounter Date Diagnosis Assessment Notes Treatment Notes Treatment Clinical Notes Apr, Cellulitis of right lower extremity [...] readings in 2 weeks. Apr, Other Continue cleans ing and dressing per home health He states [...] - recommend Picc line and IV antibiotics [facility] Other 01-03-2024 Evaluation note* Encounter Date Diagnosis [...] to restart Amlodipine. Continue PAUL for now. [facility] Other 12-12-2023 Evaluation note* Encounter Date Diagnosis [...] and inserts to prevent callus formation.Fall precautions. [facility] Other 12-08-2023 Evaluation note* Encounter Date Diagnosis [...] ulcers. Recommend routine foot care w/ Podiatry [facility] Other [phone] Miscellaneous Notes* Addendum Note - Leticia Milian APRN.CNP - 02/02/2023 2:16 PM ESTAddended by: LETICIA MILIAN on: 02/02/2023 02:16 PM Modules accepted: Orders documented in this encounterCinc[facility]11-[facility] History of Present illness Narrative* Leticia Milian APRN.CNP - 02/02/2023 1:40 PM EST Norberto Washington [address] [place] [id number] HISTORY OF PRESENT ILLNESS: Seen 07/28/22 for [...] see lab Duration: BPH w obs/luts, UTI [facility] [employer] SYMPTOMS SCORE. 1. INCOMPLETE EMPTYING [...] Making Level: 4 - Moderate Leticia Milian APRN.COMPUTATIONAL SCIENTIST documented [facility] [...] w/ acute infection Requires no additional treatment [facility] Other 07-06-2023 Evaluation note* Encounter Date Diagnosis [...] exercise for 30 minutes, 3-5 times weekly. [facility] Other 04-06-2023 Evaluation note* Encounter Date Diagnosis [...] w/ antibiotics and treatment of urinary retention [facility] Other 03-21-2023 NotePROCEDURE: XR FOOT LT MIN [...] Electronically authenticated by: SAMY TORRES Date: 2022-06-02 15:48[facility]03-21-2023 NotePROCEDURE: XR FOOT LT MIN 3 [...] Electronically authenticated by: SAMY TORRES Date: 2022-06-02 15:48[facility]01-25-2023 Evaluation note* Encounter Date Diagnosis Assessment [...] lesion was treated w/ cryotherapy w/o complications [facility] Other 01-06-2023 Evaluation note* Encounter Date Diagnosis [...] Mar, Hesitancy of micturition (ICD-10 - R39.11) [facility] Other 10-27-2022 History of Present illness Narrative* Zuleika Hackett - 01/08/2022 8:20 AM EDT Norberto Washington [address] [address] Mr. Washington presents with chief complaints of: Enlarged L testicle. ED 11/07/21: PVR 179 cc, refused a catheter, scheduled to undergo a cystoscopy in [place] but was cancelled due to his urologist [...] epididymitis Hydroceles: None Spermatoceles: None Varicoceles: None [facility] SYMPTOMS SCORE. Date 01/08/2022 1. [...] reoccurs, consider treating acute infection or inserting smith catheter -Weak bladder pressure is likely due [...] develop blood in your urine, abdominal pain, [facility] Work Phone: [phone] 170-326710-04-2022 History of Present illness Narrative* Leonard Dugan MD - 12/16/2021 2:51 PM EDT Norberto Mccoy Sin [address] [facility] [address] HISTORY OF PRESENT ILLNESS: ED 11/07/21: PVR 179 cc, refused a catheter, scheduled to undergo a cystoscopy in [place] but was cancelled due to his urologist [...] Otherwise, intermittent catheterization. Agreed indwelling catheter 18 vietnamese. Flomax will not work, no prostate tissue [...] well resected prostate (had 2 TURP) in [place] PLAN: (Management Options): -Start Flomax one cap [...] Please call and confirm that pt received [employer] message to start new script sent for [...] concerned that something is wrong with his smith. It seems to be draining normally now. [...] cath 120ml. The new 18 F coude smith was inserted using sterile technique. 120 cc [...] PM EDT [facility] PHYSICIAN [...] encounterCinc[facility]09-27-2022 Nurse Note* Stephanie Kaur RN - 12/09/2021 3:57 PM EDT [facility] URODYNAMICS [...] Bladder filled with 250 ml sterile NS. Smith catheter removed. Patient able to complete Uroflow. [...] understanding of instructions given. Patient left without smith catheter. He is aware to go to [...] Yes Patient calls to report Hematuria in Smith x 3 days He has denies pulling on smith during night He has been busy with his spouse at [facility] having to care for her needs and hadn't called earlier when it first started on Wednesday. He was hoping it would clear up but it has not, urine is between Roann tint & Brown and he does see small clots. Patient does have pain at the end of his Penis slight swelling noted (he has been applying Neosporin) Denies difficulty with urine draining into Smith bag, he does not have back pain [...] Education Session: None Instruction Provided To: Patient Design Leader Present: not applicable Discipline: Nursing Learning Topic: [...] catheter, scheduled to undergo a cystoscopy in [place] but was cancelled due to his urologist [...] Otherwise, intermittent catheterization. Agreed indwelling catheter 18 vietnamese. By signing my name below, IZuleika, attest [...] catheter, scheduled to undergo a cystoscopy in [place] but was cancelled due to his urologist was sick Pt underwent TURP x2 within a week AUA= 3-5 wach ROSAMARIA 11/10/21 - 10 gm, rubbery, no nodules US 11/07/21:= mildly complex renal cysts UA and culture 11-07-21= -ve May need UDS based on cysto documented in [facility] encounterC[facility] + Plan note No data available for this section [facility] Evaluation note* Diagnosis BPH with obstruction/lower urinary tract symptoms- Primary Hypertrophy of prostate with urinary obstruction and other lower urinary tract symptoms (LUTS) Benign prostatic hyperplasia with urinary retention documented in this encounter [facility]* Diagnosis Urinary frequency- Primary Urinary urgency Urgency of urination Urinary straining Straining on urination Feeling of incomplete bladder emptying Incomplete bladder emptying documented in this encounter [facility]* Diagnosis Urinary tract infection without hematuria, site unspecified- Primary Feeling of incomplete bladder emptying Incomplete bladder emptying Benign prostatic hyperplasia with urinary retention documented in this encounter [facility] CenterEvaludelaware [facility] ill noteNo assessment information availableSumma Health [facility] Work Phone: Evaluation note* Diagnosis Retention of urine- Primary Retention of urine, unspecified Flaccid bladder Neurogenic bladder, NOS documented in this encounter [facility]* Diagnosis Chronic epididymitis- Primary Left hydrocele Hydrocele, unspecified Weak urinary stream Slowing of urinary stream BPH without obstruction/lower urinary tract symptoms Hypertrophy of prostate without urinary obstruction and other lower urinary tract symptoms (LUTS) Epididymitis Orchitis and epididymitis, unspecified documented [facility] encounter [facility] [employer] Other Evaluation note* Diagnosis BPH with obstruction/lower urinary tract symptoms- Primary Hypertrophy of prostate with urinary obstruction and other lower urinary tract symptoms (LUTS) Recurrent UTI Urinary tract infection, site not specified Weak urinary stream Slowing of urinary stream documented in this encounter [facility]* Diagnosis Onset Date Resolution Status Chronic venous insufficiency of lower extremity acute Type 2 diabetes mellitus with hyperglycemia acute Chronic kidney disease acute Chronic venous insufficiency of lower extremity acute Elevated cholesterol acute HTN (hypertension) acute Type 2 diabetes mellitus with hyperglycemia acute [facility] Work Phone: Evaluation note* Diagnosis Onset Date Resolution Status Chronic venous insufficiency of lower extremity acute Type 2 diabetes mellitus with hyperglycemia acute Chronic kidney disease acute Chronic venous insufficiency of lower extremity acute Elevated cholesterol acute HTN (hypertension) acute Overweight acute Type 2 diabetes mellitus with hyperglycemia acute [facility] Work Phone: Evaluation note* Diagnosis Onset [...] exam for internal medicine noneactive [facility] Work Phone: Evaluation note* Diagnosis Benign prostatic hyperplasia, unspecified whether lower urinary tract symptoms present- Primary Recurrent UTI Urinary tract infection, site not specified Nocturia documented in this encounter [facility]* Diagnosis Onset Date Resolution Status Chronic [...] Type 2 diabetes mellitus with hyperglycemia acute [facility] Work Phone: Evaluation note* Diagnosis Onset Date Resolution Status Chronic kidney disease acute Chronic venous insufficiency of lower extremity acute Elevated cholesterol acute HTN (hypertension) acute Overweight acute Type 2 diabetes mellitus with diabetic polyneuropathy acute Type 2 diabetes mellitus with hyperglycemia acute [facility] Work Phone: Evaluation note* Diagnosis 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 2 diabetes mellitus ([facility])- Primary 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 HealthcareEvaluation note* Diagnosis Onset Date Resolution Status Chronic kidney disease acute Chronic venous insufficiency of lower extremity acute Elevated cholesterol acute HTN (hypertension) acute Medicare annual wellness visit, subsequent acute Overweight acute Type 2 diabetes mellitus with diabetic polyneuropathy acute Type 2 diabetes mellitus with hyperglycemia acute [facility] Work Phone: Evaluation note* Diagnosis Recurrent UTI- Primary Urinary tract infection, site not specified Benign prostatic hyperplasia, unspecified whether lower urinary tract symptoms present Incomplete bladder emptying documented in this encounter [facility] general Narrative - Reported* Type [...] cystoscopy 09.20.2019 Hospitalization History see surgical history [facility] Other Hospital Discharge instructions No data available for this section [facility] Progress note No data available for this section [facility] Reason for referral (narrative)* Outpatient Procedure (Routine) - Pending Review Specialty Diagnoses / Procedures Referred By Marce dillon Referred To Contact [facility] Diagnoses 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 Procedures URODYNAMICS MAGGY POST-VOIDING RESIDUAL URINE&/BLADDER CAP Leonard Dugan MD [address] [place] [address] [facility] [place] [address] Referral ID Status Reason Start Date Expiration Date Visits Requested Visits Authorized [id number] Pending Review Auto-Generat ed Referral 11/12/2021 11/12/2022 [...] Date/ Time Advance Directives No November 6:09pm Advance Directive Response Recorded Date/ Time Advance Directives No November 5:09pm Chief Complaint and Reason for Visit Chief [...] 2 diabetes mellitus with hyperglycemia Chief Complaint Admit Date Flu Shot December 15, 2023 11 :24am wellness December 28, 2023 8 :09am ER follow up February 01, 2024 1:24pm Reason for Visit Admit Date Chronic kidney disease December 27 8:09am Chronic venous insufficiency of lower ex tremity December 28, 2023 8:09am Elevated cholesterol December 28, 2023 8:09am Heart murmur December 28, 2023 8 :09am HTN (hypertension) December 28, 2023 8 :09am Medicare annual wellness visit, subseque nt December 28, 2023 8:09am Overweight December 28, 2023 8 :09am Type 2 diabetes mellitus with diabetic p olyneuropathy December 28, 2023 8:09am Type 2 diabetes mellitus with hyperglyce francisco December 28, 2023 8:09am Aortic stenosis, mild January 31 1:24pm Atrial flutter February 01, 2024 1:24pm Chronic kidney disease January 31 1:24pm Chronic venous insufficiency of lower ex tremity February 01, 2024 1:24pm Elevated cholesterol February 01, 2024 1:24pm HTN (hypertension) February 01, 2024 1:24pm Type 2 diabetes mellitus with diabetic p olyneuropathy February 01, 2024 1:24pm Type 2 diabetes mellitus with hyperglyce francisco February 01, 2024 1:24pm Reason for Referral Reason Refer for diabetic f oot ulcer and calluses Diagnosis 1 Foot abscess, right (L02.611) Diagnosis 2 Callus of foot (L84) Diagnosis 3 Hammer toe of right foot (M20.41) Referral Organization [facility] Referring Provider First Name Campbell Referring Provider Last Name Quentin Referring Provider Specialty Internal Me dicine Referred Organization [facility] Referred Provider Jhon Tejada Referred Address [address] [place] [phone] Referred Provider Specialty Podiatry - S urgical [...] Status: Active Member Role Status Dates Campbell Saavedra DO Primary Care Provider Active Team Status: Inactive Member Role Status Dates Campbell Saavedra DO Primary Care Provide r, Attending Provider Active Start: September 23, 2023 End: September 23, 2023 Team Status: Inactive Member Role Status Kalyi Saavedra DO Primary Care Provide r, Attending Provider Active Start: December 15, 2023 End: December 15, 2023 Team Status: Active Member Role Status Kayli Saavedra DO Primary Care Provide r, Attending Provider Active Start: April 30, 2023 Team Status: Active Member Role Status Kayli Saavedra DO Primary Care Provide r, Attending Provider Active Start: May 03, 2023 Team Status: Inactive Member Role Status Dates Campbell Saavedra DO Primary Care Provider Active Start: May 15, 2023 End: May 15, 2023 Low Carter DO Emergency Provider Active St art: May 15, 2023 End: May 15, 2023 Team Status: Inactive Member Role Status Dates Campbell Saavedra DO Primary Care Provide r, Attending Provider Active Start: May 21, 2023 End: May 21, 2023 Team Status: Active Member Role Status Kayli Saavedra DO Primary Care Provider Active Start: May 31, 2023 TAMMY Fair Attending Provider Active Start : May 31, 2023 Team Status: Inactive Member Role Status Dates Campbell Saavedra DO Primary Care Provide r, Attending Provider Active Start: June 23, 2023 End: June 23, 2023 Team Status: Inactive Member Role Status Dates Campbell Saavedra , Primary Care Provider Active Low Carter , DO Emergency Provider Active Increment Manager Relationship Specialty Start Date End Date Ran Houston Jr. PCP - General 10/10/09 Increment Manager Relationship Specialty Start Date End Date Ran Houston Jr. PCP - General 10/10/09 Increment Manager Relationship Specialty Start Date End Date Ran Houston Jr. PCP - General 10/10/09 Increment Manager Relationship Specialty Start Date End Date QuentinCampbell, DO [address] [facility] [place] [address] PCP - General Internal Medicine 11/26/21 Increment Manager Relationship Specialty Start Date End Date Campbell Saavedra, DO [address] [facility] [place] [address] PCP - General Internal Medicine 11/26/21 Increment Manager Relationship Specialty Start Date End Date Campbell Saavedra, DO [address] [facility] [place] [address] PCP - General Internal Medicine 11/26/21 Increment Manager Relationship Specialty Start Date End Date Campbell Saavedra, DO [address] [facility] [place] [address] PCP - General Internal Medicine 11/26/21 Team Status: Inactive Member Role Status Dates Campbell Saavedra DO Primary Care Provider Active Davis Cervantes MD Emergency Provider Active Increment Manager Relationship Specialty Start Date End Date Campbell Saavedra, DO [address] [facility] [place] [address] PCP - General Internal Medicine 11/26/21 Team Status: Inactive Member Role Status Dates Campbell Saavedra , Primary Care Provider Active Sam Simons , Emergency Provider Active Team Status: Inactive Member Role Status Dates Campbell Saavedra , DO Primary Care Provider Active Sam Simons , Attending Provider Active Increment Manager Relationship Specialty Start Date End Date Campbell Saavedra, DO [address] [place] [address] PCP - General Internal Medicine 11/26/21 Increment Manager Relationship Specialty Start Date End Date Campbell Saavedra, DO [address] [place] [address] PCP - General Internal Medicine 11/26/21 Increment Manager Relationship Specialty Start Date End Date Campbell Saavedra DO [address] [place] [address] PCP - General Internal Medicine 11/26/21 Team Status: Active Member Role Status Dates Campbell Saavedra DO Primary Care Provide r, Attending Provider Active Start: July 06, 2023 Team Status: Inactive Member Role Status Dates Campbell Saavedra DO Primary Care Provide r, Attending Provider Active Start: July 09, 2023 End: July 09, 2023 Team Status: Inactive Member Role Status Dates Cambpell Saavedra DO Primary Care Provider Active Start: July 12, 2023 End: July 12, 2023 Jhon Tejada DPM MS Attending Provider Active Start: July 12, 2023 End: July 12, 2023 Team Status: Active Member Role Status Dates Campbell Saavedra DO Primary Care Provider Active Start: July 22, 2023 Jhon Tejada DPM MS Attending Provider Active Start: July 22, 2023 Team Status: Inactive Member Role Status Dates Campbell Saavedra DO Primary Care Provider Active Start: July 22, 2023 End: July 22, 2023 Jhon Tejada DPM MS Attending Provider Active Start: July 22, 2023 End: July 22, 2023 Increment Manager Relationship Specialty Start Date End Date Campbell Saavedra DO [address] [place] [address] PCP - General Internal Medicine 11/26/21 Team Status: Active Member Role Status Dates Campbell Saavedra DO Primary Care Provider Active Start: July 26, 2023 Leticia Milian APRN Attending Provider Active Start: July 26, 2023 Team Status: Active Member Role Status Dates Campbell Saavedra DO Primary Care Provider Active Start: August 04, 2023 TAMMY Fair Attending Provider Active Start : August 04, 2023 Increment Manager Relationship Specialty Start Date End Date Campbell Saavedra MD [address] [place] [facility] [id number] PCP - General Internal Medicine 12/17/23 Increment Manager Relationship Specialty Start Date End Date Campbell Saavedra MD [address] [place] [facility] [id number] PCP - General Internal Medicine 12/17/23 Increment Manager Relationship Specialty Start Date End Date Campbell Saavedra MD [address] [place] [facility] [id number] PCP - General Internal Medicine 12/17/23 Team Status: Inactive Member Role Status Dates Campbell Saavedra DO Primary Care Provide r, Attending Provider Active Start: December 28, 2023 End: December 28, 2023 Team Status: Active Member Role Status Dates Campbell Saavedra DO Primary Care Provide r, Attending Provider Active Start: December 30, 2023 Team Status: Active Member Role Status Dates Campbell Saavedra DO Primary Care Provider Active Start: January 30, 2024 Mey Carlson MD Attending Provider Active Sta rt: January 30, 2024 Team Status: Inactive Member Role Status Dates Campbell Saavedra DO Primary Care Provide r, Attending Provider Active Start: February 01, 2024 End: February 01, 2024 Increment Manager Relationship Specialty Start Date End Date Campbell Saavedra DO [address] [facility], [place] [id number] PCP - General Internal Medicine 11/26/21 Reason for Visit (unrecogniz ed section and content) Reason Comments Cystoscopy-1 Reason Comments Smith Cath Problem Hematuria Reason Comments urodynamics Reason Comments Smith Reason Comments Appointment Reschedule catheter change Reason [...] section and content) DATE CREATED AUTHOR 12/13/2021 [facility] DATE CREATED AUTHOR AUTHOR'S ORGANIZ ATION 06/25/2022 [facility] DATE CREATED AUTHOR AUTHOR'S ORGANIZ ATION 07/27/2023 [facility] DATE CREATED AUTHOR AUTHOR'S ORGANIZ ATION 12/19/2023 [facility] DATE CREATED AUTHOR AUTHOR'S ORGANIZ ATION 12/19/2023 [facility] DATE CREATED AUTHOR AUTHOR'S ORGANIZ ATION 12/26/2023 [facility] DATE CREATED AUTHOR AUTHOR'S ORGANIZ ATION 02/13/2024 [facility] Goals (unrecognized section and content) Goals [...] BE BASED ON THE PRIMARY CLINICAL RECORDS. [employer] [facility]. provides no warranty or guarantee of the accuracy or completeness of information in this document."
--- NOTE | 2024-03-11 11:55 | XR_ITS ---
[address] [address] Patient Name: EMILY WASHINGTON MRN: [id number] date: 1940 Sex: M Assigned Patient Location: ER Current Patient Location: ED.MAIN Accession/Order Number: [id number] Exam Date: 03/11/2024 12:10 Report Date: 03/11/2024 13:53 At the request of: KIAN BELL Procedure: XR chest 2V EXAM: CHEST 2 VIEWS HISTORY: cp TECHNIQUE: PA and lateral views chest. COMPARISON: None. FINDINGS: The lungs are clear. There is no focal lung consolidation, pleural effusion or pneumothorax. Pulmonary vasculature is within normal limits. There is aortic atherosclerosis, normal heart size. There are degenerative changes of the spine. XR/XR chest 2V IMPRESSION: 1. No acute cardiopulmonary disease. 2. Atherosclerosis and normal heart size. Electronically authenticated by: LUX DUMONT Date: 03/11/2024 13:53
--- NOTE | 2024-03-11 11:55 | ECG_ITS ---
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
--- NOTE | 2024-03-11 11:56 | ED_ITS ---
HPI HPI - General Adult General Chief complaint: Chest Pain Stated complaint: chest pain, hypertension Time Seen by Provider: 03/11/24 11:55 Source: patient Mode of arrival: ambulance History of Present Illness HPI narrative: Patient is a 83-year-old male who is presenting to the ER today with chief complaint of intermittent vague right lower chest ache. This happened at home today. Patient was doing exercises and exercising with his chest approximately 2 hours prior to this ache. Patient has had the ache to the right lower chest 1 hour prior to arrival. There is no radiation into the back, right shoulder, right arm. Patient is also having urinary frequency. Patient is having some burning to the tip of his penis when he is urinating as well, patient believes that he has a urinary tract infection. Patient has no fever, chills, no acute complaints. No recent traveling. No significant stress anxiety. Patient was at home with his . Patient helps take care of his with her medical issues at home. He has done no heavy lifting twisting turning or anything with his that could cause any type of muscle skeletal pain. During HPI and physical exam, patient stated the pain has gone since has been in the ER and has not returned All systems are negative except as noted/marked. All systems reviewed and otherwise negative. Nurses note and vital signs reviewed and patient is not hypoxic. General: The patient appears well and in no apparent distress. Patient is resting comfortably on cart. Patient is not toxic, lethargic, or listless Skin: Warm, dry, no pallor noted. There is no rash noted. No petechiae, purpura. Head: Normocephalic, atraumatic Eye: Normal conjunctiva, no drainage, EOMI. PERRL Ears, Nose, Mouth, and Throat: oral mucosa is moist. Nares patent. Mouth without vesicles. Cardiovascular: Regular Rate and Rhythm, no murmur, gallop, rub. No reproducible tenderness palpation to bilateral anterior, lateral, posterior chest wall. Respiratory: Patient is in no distress, no accessory muscle use, lungs are clear to auscultation, no wheezing, rales or rhonchi Back: non-tender, no CVA tenderness bilaterally to percussion. No CT LS midline pain GI: Obese, soft, no midepigastric tenderness palpation, otherwise no tenderness to palpation, no masses appreciated. No rebound, guarding, or rigidity noted. No distention Musculoskeletal: Patient has full range of motion of all of the extremities, no motor, sensory, or focal neurological deficits Neurological: A&O x4, normal speech Psychiatric: Cooperative Related Data Home Medications ?Medication ?Instructions ?Recorded ?Confirmed gabapentin 300 mg capsule 300 mg PO TID 03/08/23 07/22/23 glipizide 2.5 mg tablet, extended 2.5 mg PO QAM 03/08/23 07/22/23 release 24 hr lisinopril 20 mg tablet 20 mg PO .qhs 03/08/23 07/22/23 lovastatin 40 mg tablet 40 mg PO .qhs 03/08/23 07/22/23 tamsulosin 0.4 mg capsule 0.4 mg PO Q24H 03/08/23 07/22/23 amlodipine 5 mg tablet 5 mg PO QNOON 07/06/23 07/22/23 antiarthritic combination no.2 900 900 mg PO DAILY 07/06/23 07/22/23 mg tablet (glucosamine-chondroitin) aspirin 81 mg tablet,delayed 81 mg PO DAILY 07/06/23 07/22/23 release (Adult Aspirin Regimen) multivitamin (Daily Multi-Vitamin 1 tab PO DAILY 07/06/23 07/22/23 tablet) turmeric 400 mg capsule 400 mg PO DAILY 07/06/23 07/22/23 Previous Rx's ?Medication ?Instructions ?Recorded cephalexin 500 mg capsule 500 mg PO BID 14 days #28 caps 07/22/23 hydrocodone 5 mg-acetaminophen 325 1 tab PO Q8H PRN pain 7 days #21 07/22/23 mg tablet tabs apixaban 5 mg tablet (Eliquis) 5 mg PO BID 30 days #60 tabs 01/30/24 metoprolol succinate 25 mg 25 mg PO DAILY #20 tabs 01/30/24 tablet,extended release 24 hr (Toprol XL) nitrofurantoin 100 mg PO BID 7 days #14 caps 03/11/24 monohydrate/macrocrystals 100 mg capsule (Macrobid) Allergies Allergy/AdvReac Type Severity Reaction Status Date / Time ciprofloxacin (From Cipro) Allergy Severe Rash Verified 01/30/24 16:58 Sulfa (Sulfonamide Allergy Severe Rash Verified 01/30/24 16:58 Antibiotics) Opioid HPI Opioid Management Most Recent Opioid Data: No Data to Display PFSH PFSH Medical History (Updated 03/11/24 @ 14:20 by Juan Sal MD) Chronic osteomyelitis of right foot ?M86.671 - Other chronic osteomyelitis, right ankle and foot (ICD-10) Non-pressure chronic ulcer of other part of left foot with unspecified severity ?L97.529 - Non-pressure chronic ulcer of other part of left foot with unspecified severity (ICD-10) Hypothyroidism ?E03.9 - Hypothyroidism, unspecified (ICD-10) Acute renal insufficiency ?N28.9 - Disorder of kidney and ureter, unspecified (ICD-10) Iron deficiency anemia ?D50.9 - Iron deficiency anemia, unspecified (ICD-10) Cellulitis of foot, right ?L03.115 - Cellulitis of right lower limb (ICD-10) Diabetic ulcer of right fifth toe ?E11.621 - Type 2 diabetes mellitus with foot ulcer (ICD-10) ?L97.519 - Non-pressure chronic ulcer of other part of right foot with unspecified severity (ICD-10) HLD (hyperlipidemia) ?E78.5 - Hyperlipidemia, unspecified (ICD-10) Diabetic infection of right foot ?E11.628 - Type 2 diabetes mellitus with other skin complications (ICD-10) ?L08.9 - Local infection of the skin and subcutaneous tissue, unspecified (ICD-10) Neuropathy ?G62.9 - Polyneuropathy, unspecified (ICD-10) Fracture, ankle ?S82.899A - Other fracture of unspecified lower leg, initial encounter for closed fracture (ICD-10) Benign prostate hyperplasia ?N40.0 - Benign prostatic hyperplasia without lower urinary tract symptoms (ICD-10) Hypertension ?I10 - Essential (primary) hypertension (ICD-10) Diabetes ?E11.9 - Type 2 diabetes mellitus without complications (ICD-10) Surgical History (Updated 07/06/23 @ 11:11 by Asha Erickson NP) History of colonoscopy ?Z98.890 - Other specified postprocedural states (ICD-10) H/O rotator cuff surgery ?Z98.890 - Other specified postprocedural states (ICD-10) History of toe surgery ?Z98.890 - Other specified postprocedural states (ICD-10) History of appendectomy ?Z90.49 - Acquired absence of other specified parts of digestive tract (ICD- 10) Hx of tonsillectomy ?Z90.89 - Acquired absence of other organs (ICD-10) Family History (Updated 07/06/23 @ 11:11 by Asha Erickson NP) Mother Family history of cancer Father Family history of stroke Other Family history of aneurysm Social History (Updated 07/21/23 @ 13:32 by Ness Blunt RN) Within the past year, how often did you have a drink containing alcohol: never Score interpretation: A score less than 4 is consistent with normal alcohol consumption. 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[employer] Known occupational exposures/hazards: No Highest level of school completed/degree received: Bachelor's degree Are you now , , , , never or living with a partner: Little interest or pleasure in doing things: not at all Feeling down, depressed, or hopeless: not at all Feel stressed/tense/nervous/anxious/difficulty sleeping: not at all Do you think of yourself as: straight/heterosexual Gender Identity: male Exam Constitutional Vital Signs, click to edit/add: Last Vital Signs Temp 99.9 F 03/11/24 11:34 Pulse 110 H 03/11/24 12:22 Resp 17 03/11/24 12:22 BP 158/78 H 03/11/24 12:22 Pulse Ox 97 03/11/24 12:22 O2 Del Method Room Air 03/11/24 11:34 Course Vital Signs Vital signs: Vital Signs Temperature 99.9 F 03/11/24 11:34 Pulse Rate 125 H 03/11/24 11:34 Respiratory Rate 26 H 03/11/24 11:34 Blood Pressure 179/116 H 03/11/24 11:34 Pulse Oximetry 97 03/11/24 11:34 Oxygen Delivery Method Room Air 03/11/24 11:34 Temperature 99.9 F 03/11/24 11:34 Pulse Rate 110 H 03/11/24 12:22 Respiratory Rate 17 03/11/24 12:22 Blood Pressure 158/78 H 03/11/24 12:22 Pulse Oximetry 97 03/11/24 12:22 Oxygen Delivery Method Room Air 03/11/24 11:34 Medical Decision Making MDM Narrative Medical decision making narrative: EKG, x-ray showed no acute findings. Patient has had no pain in the ER. Patient was concerned about UTI. Patient did give a urine sample, patient had nitrite, leuk esterase, and white blood cells. Patient was started on Macrobid. Patient has allergy to fluoroquinolones and sulfa. Patient increase fluids, water, cranberry juice. Patient follow-up with PCP. No questions at discharge. Patient will follow-up with his PCP for additional cardiac testing as indicated Lab Data Lab results reviewed: Yes I reviewed the patient's lab results Labs: Lab Results 03/11/24 03/11/24 Range/Units 12:03 13:28 WBC 14.8 H (4.0-11.0) 10^3/uL RBC 4.05 L (4.70-6.10) 10^6/uL Hgb 12.9 L (14.0-18.0) g/dL Hct 38.6 L (42.0-54.0) % MCV 95.3 H (80.0-94.0) fL MCH 31.9 (25.9-34.0) pg MCHC 33.4 (29.9-35.2) g/dL RDW 11.5 (11.0-15.0) % Plt Count 187 (150-450) 10^3/uL MPV 8.8 L (9.5-13.5) fL Neut % (Auto) 90.5 H (43.0-75.0) % Lymph % (Auto) 5.8 L (20.5-60.0) % [place] % (Auto) 2.2 (1.7-12.0) % Eos % (Auto) 0.5 L (0.9-7.0) % Baso % (Auto) 0.3 (0.2-2.0) % Neut # (Auto) 13.5 H (1.4-6.5) 10^3/uL Lymph # (Auto) 0.9 L (1.2-3.8) 10^3/uL [place] # (Auto) 0.3 (0.3-0.8) 10^3/uL Eos # (Auto) 0.1 (0.0-0.7) 10^3/uL Baso # (Auto) 0.0 (0.0-0.1) 10^3/uL Abs Immat Gran (auto) 0.10 H (0.00-0.03) 10^3/uL Imm/Tot Granulo (auto) 0.7 H (0.0-0.5) % PT 11.5 (9.0-11.6) sec INR 1.09 Sodium 136 (136-145) mmol/L Potassium 4.7 (3.5-5.1) mmol/L Chloride 100 (98-107) mmol/L Carbon Dioxide 26.3 (21.0-32.0) mmol/L Anion Gap 14.4 BUN 20.0 H (7.0-18.0) mg/dL Creatinine 1.27 (0.70-1.30) mg/dL Est GFR ( Amer) >60 (>=60 mL/min/1.73m^2) Est GFR (Non-Af Amer) 54 L (>=60 mL/min/1.73m^2) BUN/Creatinine Ratio 15.7 Glucose 116 H (74-106) mg/dL Calcium 8.8 (8.5-10.1) mg/dL Total Bilirubin 0.5 (0.2-1.0) mg/dL AST 25 (15-37) U/L ALT 26 (16-63) U/L Alkaline Phosphatase 66 (46-116) U/L Troponin I High Sens 6.6 (4.0-76.1) pg/mL NT-Pro-B Natriuret Pep 254.0 (<=1800.0) pg/mL Total Protein 7.0 (6.4-8.2) g/dL Albumin 3.8 (3.4-5.0) g/dL Globulin 3.2 g/dL Albumin/Globulin Ratio 1.2 Urine Color Lt. yellow (YELLOW) Urine Clarity Clear (CLEAR) Urine pH 6.0 (5.0-9.0) Ur Specific [place] 1.025 (1.005-1.025) Urine Protein Negative (NEG/TRACE) mg/dL Urine Glucose (UA) Negative (NEGATIVE) mg/dL Urine Ketones Negative (NEGATIVE) mg/dL Urine Occult Blood Trace-i (NEGATIVE) Urine Nitrite Positive A (NEGATIVE) Urine Bilirubin Negative (NEGATIVE) Urine Urobilinogen 0.2 (0.2-1.0) EU/dL Ur Leukocyte Esterase Small A (NEGATIVE) Urine RBC 0-2 (0-2) #/HPF Urine WBC 10-20 A (NONE SEEN) #/HPF Ur Squamous Epith Cells Few A (NONE/RARE) #/LPF Urine Crystals None seen (None Seen) #/HPF Urine Bacteria Moderate A (NONE SEEN) #/HPF Urine Casts None seen (NONE SEEN) #/LPF Urine Mucus None seen (NONE SEEN) Ur Culture Indicated? Yes ECG Data Attestation: I personally reviewed and interpreted this ECG as follows: (EKG interpretation. Sinus tachycardia at 122, normal axis deviation. Artifact noted. QTc of 475. EKG will be repeated.) Interpretation: EKG #2. Sinus tachycardia at 106. Normal axis deviation. No acute ST elevation, no acute ectopy. QTc of 374. OH interval 232, first-degree AV block Discharge Plan Discharge Chief Complaint: Chest Pain Clinical Impression: Chest pain, Urinary tract infection Patient Disposition: Home, Self-Care Time of Disposition Decision: 14:19 Condition: Fair Mode of Transportation: Private Vehicle Prescriptions / Home Meds: New nitrofurantoin monohyd/m-cryst [Macrobid] 100 mg capsule 100 mg PO BID 7 Days Qty: 14 0RF Rx Instructions: must administer with a meal/food No Action lisinopril 20 mg tablet 20 mg PO .qhs tamsulosin 0.4 mg capsule 0.4 mg PO Q24H glipizide 2.5 mg tablet extended release 24hr 2.5 mg PO QAM gabapentin 300 mg capsule 300 mg PO TID lovastatin 40 mg tablet 40 mg PO .qhs amlodipine 5 mg tablet 5 mg PO QNOON glucosamine-chondroitin 900 mg tablet 900 mg PO DAILY turmeric 400 mg capsule 400 mg PO DAILY aspirin [Adult Aspirin Regimen] 81 mg tablet,delayed release (DR/EC) 81 mg PO DAILY multivitamin [Daily Multi-Vitamin] Tablet 1 tab PO DAILY Eliquis 5 mg tablet 5 mg PO BID 30 Days Qty: 60 0RF metoprolol succinate [Toprol XL] 25 mg tablet extended release 24 hr 25 mg PO DAILY Qty: 20 0RF cephalexin 500 mg capsule 500 mg PO BID 14 Days Qty: 28 0RF hydrocodone-acetaminophen 5-325 mg tablet 1 tab PO Q8H PRN (Reason: pain) 7 Days Qty: 21 0RF Print Language: Kenyan Instructions: Chest Pain (ED), Urinary Tract Infection in Men (ED) Additional Instructions: Increase fluids at home, finish all antibiotics for UTI. Urine culture is pending, if there is any changes to antibiotic that needs to be done, we will contact you. If you have heavy chest pressure, extreme shortness of breath, or any other acute concerns, return back to the ER for reevaluation of chest pain. Otherwise follow-up with Dr. Naranjo for further testing Referrals: Campbell Naranjo DO [Primary Care Provider] - 1 week Discharge Date/Time: 03/11/24 14:32
[2024-03-11 12:12] LABS: Basophils Percent Auto 0.3 % (0.2-2.0); Eosinophils Absolute Auto 0.1 10^3/uL (0.0-0.7); Eosinophils Percent Auto 0.5 % (0.9-7.0); Hematocrit 38.6 % (42.0-54.0); Hemoglobin 12.9 g/dL (14.0-18.0); Immature Granulocytes Pct Auto 0.7 % (0.0-0.5); Lymphocytes Absolute Auto 0.9 10^3/uL (1.2-3.8); Lymphocytes Percent Auto 5.8 % (20.5-60.0); Mean Corpuscular HGB Conc 33.4 g/dL (29.9-35.2); Mean Corpuscular Hemoglobin 31.9 pg (25.9-34.0); Mean Corpuscular Volume 95.3 fL (80.0-94.0); Mean Platelet Volume 8.8 fL (9.5-13.5); Monocytes Absolute Auto 0.3 10^3/uL (0.3-0.8); Monocytes Percent Auto 2.2 % (1.7-12.0); Neutrophils Absolute Auto 13.5 10^3/uL (1.4-6.5); Neutrophils Percent Auto 90.5 % (43.0-75.0); Platelet Count 187 10^3/uL (150-450); Red Blood Count 4.05 10^6/uL (4.70-6.10); Red Cell Distribution Width 11.5 % (11.0-15.0); White Blood Count 14.8 10^3/uL (4.0-11.0)
[2024-03-11] MEDS: ASPIRIN 81 MG TAB.CHEW 162 MG PO (12:22)
[2024-03-11 12:27] LABS: INR 1.09; Prothrombin Time 11.5 sec (9.0-11.6)
[2024-03-11 12:51] LABS: Alanine Aminotransferase 26 U/L (16-63); Albumin Globulin Ratio 1.2; Albumin Level 3.8 g/dL (3.4-5.0); Alkaline Phosphatase 66 U/L (46-116); Anion Gap 14.4; Aspartate Amino Transferase 25 U/L (15-37); BUN Creatinine Ratio 15.7; Bilirubin Total 0.5 mg/dL (0.2-1.0); Calcium 8.8 mg/dL (8.5-10.1); Carbon Dioxide 26.3 mmol/L (21.0-32.0); Chloride 100 mmol/L (98-107); Estimated GFR (African America >60 (>=60 mL/min/1.73m^2); Estimated GFR (Non-African Ame 54 (>=60 mL/min/1.73m^2); Globulin 3.2 g/dL; Glucose 116 mg/dL (74-106); Potassium 4.7 mmol/L (3.5-5.1); Sodium 136 mmol/L (136-145); Troponin I High Sensitivity 6.6 pg/mL (4.0-76.1)
[2024-03-11 13:47] LABS: Bilirubin Urine NEGATIVE (NEGATIVE); Blood Urine TRACE-I (NEGATIVE); Clarity Urine CLEAR (CLEAR); Color Urine LT. YELLOW (YELLOW); Glucose Urine UA NEGATIVE (NEGATIVE); Ketones Urine NEGATIVE (NEGATIVE); Leukocyte Esterase Urine SMALL (NEGATIVE); Nitrite Urine POSITIVE (NEGATIVE); Protein Urine NEGATIVE (NEG/TRACE); Specific Gravity Urine 1.025 (1.005-1.025); Urobilinogen Urine 0.2 EU/dL (0.2-1.0)
[2024-03-11 14:06] LABS: Bacteria Urine MODERATE #/HPF (NONE SEEN); Cast Seen? NONE SEEN #/LPF (NONE SEEN); Crystals Seen? None Seen #/HPF (None Seen); Mucus Urine NONE SEEN (NONE SEEN); RBC Urine 0-2 #/HPF (0-2); Squamous Epithelial Cell Urine FEW #/LPF (NONE/RARE); Urine Culture Indicated YES
--- NOTE | 2024-03-11 22:51 | ECG_ITS ---
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
[2024-03-14 09:39] LABS: BOX Test Reference Lab FIRELANDS
--- NOTE | 2024-03-19 18:22 | PC.NURSE ---
Urine culture reviewed by Justina BARR and patient already placed on macrobid in the ER. no change in treatment.
== END 2024-03-11 14:32 | disposition home or self-care (01) ==
PROVIDERS: Emergency Provider Emergency Medicine; PCP Internal Medicine
DX: R07.9 Chest pain, unspecified (principal); N39.0 Urinary tract infection, site not specified; R50.9 Fever, unspecified; Z90.49 Acquired absence of other specified parts of digestive tract; I10 Essential (primary) hypertension
CPT/HCPCS: 36415; 71046; 80053; 81001; 83880; 84484; 85025; 85610; 87086; 87150; 87186; 93005; 99285

== ENCOUNTER 2024-04-05 09:24 | Outpatient (OUT) | payer MEDICARE, SELFPAY ==
--- OUTSIDE RECORDS SUMMARY | 2024-04-05 09:44 | XMS_ITS | CCD ---
Author Organization [facility] Care Team Providers Care Mechanical Developer Prover Name Role Phone Ran Houston Jr. Primary Care Provider Unava ilable RAN HOUSTON JR Primary Care Unavailable KEELY SANCHEZ Attending Unavailable CAMPBELL SAAVEDRA Primary Care Unavailable Campbell Saavedra DO Primary Care Provider DO Campbell Saavedra Primary Care Provider MD Davis Cervantes Emergency Provider DO Sam Simons Emergency Provider [phone] DO Sam Simons Attending Provider Campbell Saavedra Unavailable DR CAMPBELL SAAVEDRA Primary Care Unavailable QUENTIN, DR HIGHTOWER Consulting [...] Unavailable BALL, DR HIGHTOWER Primary Care Unavailable UQENTIN, DR HIGHTOWER Admitting Unavailable BALL, DR HIGHTOWER Attending Unavailable BALL, DR HIGHTOWER Consulting Unavailable BALL, DR HIGHTOWER Primary Care Unavailable MELISSA, DR SAMY Nieves Consulting Unavailable QUENTIN, DR HIGHTOWER Admitting Unavailable BALL, DR HIGHTOWER Attending Unavailable BALL, DR HIGHTOWER Consulting Unavailable BALL, DR HIGHTOWER Primary Care Unavailable BALL, DR HIGHTOWER Admitting Unavailable BALL, DR HIGHTOWER Attending Unavailable BALL, DR HIGHTOWER Consulting Unavailable BALL, DR HIGHTOWER Primary Care Unavailable Cornell Baptiste Unavailable Ball, DO Hightower Primary Care Provider Tupa, DO [place] Emergency Provider Campbell Saavedra DO Primary Care Provider Quentin, DO Campbell Primary Care Provider Tupa, DO [place] Emergency Provider CHRISTIAN Tejada Attending Provider [phone] Campbell Saavedra DO Primary Care Provider Quentin, DO Hightower Primary Care Provider [phone] Sterling Torres Admitting Unavailable Sterling Torres Attending Unavailable Campbell Saavedra MD Primary Care Provider CAMPBELL SAAVEDRA Primary Care Physician Sterling Torres Admitting Unavailable Sterling Torres Attending Unavailable CAMPBELL SAAVEDRA Primary Care Unavailable JENNIFER MILIANI Kin Referring Unavailable CAMPBELL SAAVEDRA Primary Care Unavailable RUKHSANALETICIA Referring Unavailable CAMPBELL SAAVEDRA Primary Care Unavailable RUKHSANALETICIA Attending Unavailable CAMPBELL SAAVEDRA Primary Care Unavailable RUKHSANALETICIA Attending Unavailable CAMPBELL SAAVEDRA Primary Care Unavailable CAMPBELL SAAVEDRA Referring Unavailable Ball Campbell BORREGO Primary Care Provider Juan Sal DO Attending Provider [phone] Keely Hernandez MD Attending Provider STERLING TORRES Attending Unavailable STERLING TORRES Attending Unavailable Campbell Saavedra Primary Care Unavailable Jhon Tejada Admitting Unavailable Jhon Tejada Attending Unavailable Juan Sal Admitting Unavailable PayJuan Attending Unavailable Campbell Saavedra Primary Care Unavailable Campbell Saavedra Primary Care Unavailable Keely Hernandez Admitting Keely Carmona Attending Low Daigle Admitting Unavailable Low Carter Attending Unavailable Campbell Saavedra Primary Care Unavailable Quentin, Campbell Primary Care Unavailable Jhon Tejada Admitting Unavailable Jhon Tejada Attending Unavailable Allergies Allergy Classification Reported Allergen(s) Allergy Type Date of Onset Reaction(s) Facility (20 sources) Ciprofloxacin; Translations: [CIPROFLOXACIN] Drug Allergy 08-01-19 10 GI Upset, hives, Weal (disorder) [facility] (20 sources) Sulfonamides (Antibiotic); Translations: [SULFA (SULFONAMIDE ANTIBIOTICS)] Propensity to adverse reactions 08-01-19 10 Rash, hives [facility] (2 sources) Ciprofloxacin; Translations: [Cipro] Drug Allergy [facility] (1 source) Sulfonamides (Antibiotic) Drug allergy (disorder) [facility] (1 source) Allergies Reconciled Propensity to adverse reactions Unknown [facility] Other (1 source) patient allergy list reviewed by nurse or physicia Propensity to adverse reactions 05-20-19 18 Comment:Done [facility] Other (2 sources) Sulfonamides (Antibiotic); Translations: [sulfa drugs] Propensity to adverse reactions (disorder) Weal (disorder) [facility] (1 source) Ciprofloxacin Drug Allergy 03-14-20 [facility] (1 source) Sulfonamides (Antibiotic) Drug allergy (disorder) 03-14-20 [facility] Medications Current Medications Medication Drug Class(es) Dates Sig (Normalized) Sig (Original) apixaban 2.5 mg oral tablet (12 sources) Factor Xa Inhibitor Start: 03-14-2024 take 1 tablet by mouth twice daily Apixaban (Eliquis) 2.5 mg tablet Active 2.5 MG PO Twice daily March 14, 2024 12:00am Start: 02-01-2024 End: 02-01-2024 take 1 tablet by mouth twice daily Apixaban 2.5 mg tablet Discontinued 2.5 MG PO Twice daily 60 February 01, 2024 2:06pm February 01, 2024 9:27pm Start: 02-01-2024 apixaban (ELIQ UIS) 2.5 mg tab(s) 5 mg two times a day. 02/01/2024 Active Start: 02-01-2024 End: 03-14-2024 take 1 tablet by mouth twice daily Apixaban 5 mg tablet Discontinued 5 MG PO Twice daily 60 February 01, 2024 9:27pm March 14, 2024 2:57pm aspirin 81 mg oral tablet (20 sources) Platelet Aggregation Inhibitor, Nonsteroidal Anti-inflammatory Drug Start: 12-11-2021 aspirin 81 mg cap Aspirin Active 81 MG PO Daily December 11, 2021 12:00am 12/11/2021 Active Start: 12-11-2021 take 1 capsule by [facility] once daily Aspirin 81 mg Capsule Active [...] mg Capsule Discontinued 500 MG PO Q8H 21 7 December 10, 2021 11:00pm December 17, 2021 4:10pm [...] FLEX) Start: 10-28-2021 take 1 capsule by [facility] once daily Keflex 500 mg Cap 500 mg = 1 cap(s), Oral, Daily, Take 1 capsule the day before the procedure and 1 capsule after the procedure, # 2 cap(s), Refills(s) 0, Pharmacy: [facility]/pharmacy #[id number], 192, cm, 12/14/19 10:22:00 EDT, Height/Length Dosing, 104, kg, 12/14/19 10:22:00 EDT, Weight Dosing Start Date: 10/28/21 Status: Ordered Comment on above: Take 1 capsule by mo [facility] twice daily. Take 1 capsule by mo ut three times daily for 3 days. Start evening prior procedure diclofenac 18 mg oral capsule (19 sources) Nonsteroidal Anti-inflammatory Drug take 1 capsule by mouth three times daily doxycycline hyclate 100 mg oral capsule (5 sources) Tetracycline-class Drug Start: doxycycline hyclate (VIBRAMYCIN) [...] 300 MG PO Three times daily 270 August 04, 2023 10:00am January 09, 2024 [...] 05/25/19 Status: Ordered take 1 tablet by [facility] every twenty-four hours glipiZIDE XL 5 [...] mL t opical gel (XYLOCAINE, GLYDO) lisinopril 10 mg oral tablet (20 sources) Angiotensin Converting Enzyme Inhibitor Start: 03-14-2024 take 1 tablet by mouth twice daily Lisinopril 10 mg tablet Active 10 MG PO Twice daily March 14, 2024 12:00am Start: 12-28-2023 End: 03-14-2024 Lisinopril 20 mg tablet Disc ontinued 10 MG .ROUTE Twice daily December 28, 2023 7:41am March 14, 2024 2:59pm 10 mg twice daily; Start: 12-28-2023 Lisinopril [...] 12:03pm Start: 07-31-2009 take 2 tablets by mo [facility] once daily lisinopril(PRINIVIL 10 MG TAB) Take [...] MG PO Daily December 11, 2021 12:00am 24 hr metoprolol succinate 25 mg extended release oral tablet (2 sources) beta-Adrenergic Radha Start: 01-31-2024 take 1 tablet by mouth every hour metoprolol succinate ER (TOPROL XL) 25 mg 24 hr tablet Take 1 tablet by mouth every afternoon. 01/31/2024 Active MSM 1500 MG (19 sources) MSM 1500 MG as directed Orally Active Multi For Him - (4 sources) Multi For Him - as directed Orally Active Multivitamin (Daily Multi-Vitamin) tablet (10 sources) Start: 05-21-2023 take 1 tablet by mouth once daily Multivitamin (Daily Multi-Vitamin) tablet Active 1 TAB PO Daily May 21, 2023 12:00am Start: 05-21-2023 take 1 tablet by marisela th once daily Multivitamin (Daily Multi-Vitamin) tablet Active 1 TAB PO Daily May 21, 2023 1:00am Multivitamin preparation (2 sources) multivitamin (MULTIPLE VITAMINS ORAL) Take by mouth. Active nitrofurantoin, macrocrystals 50 mg oral capsule (1 source) Nitrofuran Antibacterial Start: End: take 1 capsule by mouth twice daily nitrofurantoin macrocrystal (MACRODANTIN) 50 mg capsule Indications: BPH with obstruction/lower urinary tract symptoms , Benign prostatic hyperplasia with urinary retention 1 capsule by ORAL/FEEDING TUBE route twice daily for 10 days. 20 capsule 0 11/12/2021 11/22/2021 Active Comment on above: 1 capsule by ORAL/FE EDING TUBE route twice daily for 10 days. nitrofurantoin, macrocrystals 25 mg / nitrofurantoin, monohydrate 75 mg oral capsule (2 sources) Nitrofuran Antibacterial Start: take 1 capsule by mouth twice daily at mealtime Nitrofurantoin Monohyd/M-Cryst (Macrobid) 100 mg capsule Active 100 MG PO Twice daily March 14, 2024 12:00am must administer with a meal/food tamsulosin hydrochloride 0.4 mg oral capsule (20 sources) alpha-Adrenergic Radha Start: Tamsulosin 0.4 mg capsule Active 0 .ROUTE .COMPLEX 180 October 12, 2023 7:41am TAKE 1 CAPSULE TWICE DAILY Start: 12-17-2021 End: 06-23-2023 take 1 capsule by mouth twice daily Tamsulosin 0.4 mg capsule Discontinued 0.4 MG PO Twice daily 180 90 June 17, 2023 11:04am June 23, 2023 8:54am Start: 11-14-2019 End: 04-03-2024 tamsulosin (FLOMAX) 0.4 mg T DAMARIS 1 CAPSULE ONCE DAILY 90 capsule 3 04/03/2024 Active Comment on above: Take 1 capsule by mo uth once daily. Take one cap. daily Turmeric extract (2 sources) TURMERIC ORAL Ta ke by mouth. Active Turmeric Root Extract 500 mg tablet (2 sources) Start: 03-14-2024 take 1 tablet by mouth once daily Turmeric Root Extract 500 mg tablet Active 750 MG PO Daily March 14, 2024 12:00am Turmeric Root-Yulisa Root Ext (7 sources) Start: 05-21-2023 Turmeric Root-Yulisa Root Ext Active TAB PO May 21, 2023 1:00am Turmeric-Yulisa 150-25 MG (4 sources) Turmeric-Yulisa 150-25 MG as directed Orally Active vit A/vit C/vit E/zinc/copper (PRESERVISION AREDS ORAL) (2 sources) vit A/vit C/vit E/zinc/copper (PRESERVISION AREDS ORAL) Take by mouth. Active Vitamins A,C,M-Onmf-Wfittd (Preservision Areds) 4,296 mcg-226 mg-90 mg capsule (4 sources) Start: 12-28-2023 take 1 capsule by mouth twice daily Vitamins A,C,V-Osfk-Ffhwgr (Preservision Areds) 4,296 mcg-226 mg-90 mg capsule Active 1 CAP PO Twice daily December 27, 2023 11:00pm Start: 12-28-2023 take 1 capsule by mo [facility] twice daily Vitamins A,C,W-Tuaz-Vztfmi (Preservision Areds) 4,296 mcg-226 mg-90 mg capsule [...] mg / clavulanate 125 mg oral tablet (16 sources) Penicillin-class Antibacterial Start: End: take 1 [...] above: Use twice daily on f eet methylsulfonylmethane 1000 mg oral tablet (10 sources) Start: 05-21-2023 End: 03-14-2024 take 1 capsule by mouth twice daily Methylsulfonylmethane (Msm) 1,000 mg capsule Discontinued 1000 MG PO Twice daily May 21, 2023 12:00am March 14, 2024 2:59pm simvastatin 40 mg oral tablet (20 sources) HMG-CoA Reductase Inhibitor Start: 07-31-2009 End: 12-16-2021 simvastatin(ZOCOR 40 MG TAB) Take one(1) tablet daily at bedtime. 0 0 07/31/2009 12/16/2021 Discontinued (Discontinued by Patient) Comment on above: Take one(1) tablet d aily at bedtime. trimethoprim 100 mg oral tablet (15 sources) Dihydrofolate Reductase Inhibitor Antibacterial Start: 12-15-2021 End: 05-21-2023 take 1 tablet by mouth twice daily Trimethoprim 100 mg tablet Discontinued 100 MG PO Twice daily December 16, 2021 11:00pm May 21, 2023 11:03am Comment on above: Take 1 tablet by marisela th twice daily for 5 days. Turmeric Root-Yulisa Root Ext 150-25 mg tablet,chewable (3 sources) Start: 05-21-2023 End: 03-14-2024 Turmeric Root-Yulisa Root Ext 150-25 mg tablet,chewable Discontinued TAB PO May 21, 2023 12:00am March 14, 2024 3:00pm Start: 05-21-2023 Turmeric Root- Yulisa Root Ext 150-25 mg tablet,chewable Active TAB PO May 21, 2023 12:00am Problems Active Problems Problem Classification Problem Date [...] to other specified organisms Episodic Cardiac dysrhythmias (11 sources) Ventricular premature complex; Translations: [Ventricular premature depolarization] Onset: 06-23-2016 01-31-2024 Chronic Comment on above: Echocardiogram: LVEF 65%, normal RV size/function, LISA, mild , RVSP 36 4CHADs VASc = 4 (age > 75, HTN, Diabetes) Chronic kidney disease (20 sources) Chronic kidney disease stage 3; Translations: [Chronic kidney disease, stage 3 unspecified] Onset: 08-23-2014 06-20-2023 Chronic Chronic ulcer of skin (17 sources) Ulcer of foot; Translations: [Non-pressure chronic ulcer of other part of unspecified foot with unspecified severity] Onset: 10-02-2009 10-02-2009 Chronic Complication of device; implant or graft (14 sources) Disorder of urethral catheter; Translations: [Breakdown [...] of Phys. EHR Cmte Heart valve disorders (8 sources) Nonrheumatic aortic (valve) stenosis; Translations: [Mild aortic valve stenosis] 01-31-2024 Chronic Heart valve disorders (7 sources) Heart murmur; Translations: [Cardiac murmur, unspecified] 12-28-2023 Episodic Hyperplasia of prostate (20 sources) Benign prostatic hypertrophy with outflow obstruction; Translations: [Benign prostatic hyperplasia with lower urinary tract symptoms] Onset: 03-23-2016 Chronic Immunizations and screening for infectious disease (1 source) Vaccination given; Translations: [Encounter for immunization] Episodic Infective arthritis and osteomyelitis (except that caused by tuberculosis or sexually transmitted disease) (12 sources) Osteomyelitis of right foot; Translations: [Osteomyelitis, unspecified] Onset: 03-15-2023 07-07-2023 Chronic Inflammation; infection of eye (except that caused by tuberculosis or sexually transmitteddisease) (6 sources) Blepharitis of upper and lower eyelids [...] sources) H/O: high risk medication; Translations: [Other group home (current) drug therapy] Episodic Other aftercare (1 source) Long-term current use of drug therapy; Translations: [Other group home (current) drug therapy] Episodic Other circulatory disease [...] Translations: [Pain in left foot] Episodic Other diseases of bladder and urethra (1 source) Flaccid neurogenic bladder; Translations: [Flaccid neuropathic bladder, not elsewhere classified] Chronic Other diseases of veins and lymphatics (6 sources) Peripheral venous insufficiency; Translations: [Venous insufficiency (chronic) (peripheral)] Onset: 09-21-2016 Episodic Other diseases of veins and lymphatics (10 sources) Venous insufficiency of leg; Translations: [Venous insufficiency (chronic) (peripheral)] 05-20-2023 Episodic Other diseases of veins and lymphatics (10 sources) Stasis dermatitis; Translations: [Venous insufficiency (chronic) (peripheral)] 05-21-2023 Episodic Other diseases of veins and lymphatics (20 sources) Venous insufficiency (chronic) (peripheral); Translations: [Venous (peripheral) insufficiency, unspecified] 05-21-2023 Episodic Other eye disorders (6 sources) Optic atrophy; 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] Onset: 12-17-2023 12-17-2023 Chronic Other eye disorders (6 sources) Dry eyes; Translations: [Dry eye syndrome [...] Chronic Other nutritional; endocrine; and metabolic disorders (10 sources) Overweight; Translations: [Overweight] Episodic Other nutritional; endocrine; and metabolic disorders (10 sources) Overweight; Translations: [Overweight] Onset: 10-20-2021 06-23-2023 Episodic Other skin disorders (5 sources) Actinic keratosis; Translations: [Actinic keratosis] Episodic Other skin disorders (1 source) Callosity; Translations: [Corns and callosities] Episodic Other skin disorders (2 sources) Corns and callosities Episodic Retinal detachments; defects; vascular occlusion; and retinopathy (6 sources) Nonexudative age-related macular degeneration; Translations: [Nonexudative age-related macular degeneration, bilateral, intermediate dry stage] Onset: 12-17-2023 12-17-2023 Chronic Retinal detachments; defects; vascular occlusion; and retinopathy (1 source) Serous retinal detachment; Translations: [Serous retinal detachment, unspecified eye] Episodic Skin and subcutaneous tissue infections (16 sources) Cellulitis of toe of left foot; Translations: [Cellulitis of left toe] Resolved: 08-28-2019 Episodic Spondylosis; intervertebral disc disorders; other back problems (6 sources) Lumbosacral spondylosis without myelopathy; Translations: [Spondylosis without myelopathy or radiculopathy, lumbar region] Chronic Sprains and strains (2 sources) Low back strain; Translations: [Strain of muscle, fascia and tendon of lower back, initial encounter] Resolved: 07-15-2021 Episodic Thyroid disorders (4 sources) Subclinical hypothyroidism; Translations: [Other specified hypothyroidism] 12-31-2024 Chronic Unclassified (3 sources) CONTACT W/AND (SUSP) EXPOS [...] 08-28-2019 Episodic Other aftercare (1 source) 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; Translations: [OTH SKILLED NURSING CURRENT DRUG THERAPY] Onset: 10-22-2021 Episodic Other connective tissue disease (1 source) Disorder of soft tissue; Translations: [Other specified soft tissue disorders] Resolved: 08-28-2019 Episodic Other connective tissue disease (2 sources) Other specified soft tissue disorders; Translations: [Other specified soft tissue disorders] Onset: 05-15-2023 Episodic Other connective tissue disease (1 source) Pain in right lower limb; Translations: [Pain in right leg] Onset: 05-15-2023 Episodic Other lower respiratory disease (1 source) [...] organisms] Onset: 10-29-2017 Episodic Residual codes; unclassified (15 sources) Postoperative state; Translations: [Other specified postprocedural [...] Test Name Value Interpretation Reference Range Facility Ophthalmic OCT panelon 03-22 [facility] Right Eye Images reviewed and comparison made to baseline, Images reviewed. To assess optic nerve function and for use in future follow-up. Reliability: good and adequate. Left Eye Images reviewed and comparison made to baseline, Images reviewed. To assess optic nerve function and for use in future follow-up. Reliability: good and adequate. 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 Stable. No changes over the last 3 months. [facility] Radiology Study observation (narrative) [facility] Perimetry studyon 03-22-2024 [facility] Radiology Study observation (narrative) [facility] FPG ECG *CARDIOLOGY ONLY*on 03-14-2024 FPG ECG *CARDIOLOGY ONLY* [facility] [place] [address] Electrocardiograph Report Signed Patient: Norberto Washington MR#: [id number] 89 : 1940 Acct:[id number] Age/Sex: 83 / M ADM Date: 03/14/24 Loc: EKGCARDIO Room: Type: [facility] Attending Dr: Keely Hernandez MD Ordering Provider: Keely Hernandez MD Date of Service: 03/14/24 ECG/FPG ECG *CARDIOLOGY ONLY*: I48.3 - Typical atrial flutter Copies to: Test Reason : Blood Pressure : */* mmHG Vent. Rate : 71 BPM Atrial Rate : 71 BPM P-R Int : 214 ms QRS Dur : 76 ms QT Int : 388 ms P-R-T Axes : 53 69 21 degrees QTcB Int : 421 ms Sinus rhythm with 1st degree AV block Otherwise normal ECG When compared with ECG of 03-Dec-2010 14:20, No significant change was found Confirmed by Keely Hernandez ([id number]) on 03/14/2024 6:03:36 PM Referred By: Electronically Signed By: Keely Hernandez Transcribed By: MUS Signed By Keely Hernandez MD 03/14/24 5140 Normal [facility] Basophils Auto (Bld) [#/Vol] on 03-11-2024 Basophils (Bld) [#/Vol] Automated basoph il count 0.0-0.1 [facility] Basophils/100 WBC Auto (Bld) on 03-11-2024 Basophils/100 WBC (Bld) Automated basoph il % 0.2-2.0 [facility] Eosinophils/100 WBC Auto (Bl d)on 03-11-2024 Eosinophils/100 WBC (Bld) Automated eosinophil % Low 0.9-7.0 [facility] Erythrocyte distribution wid th Auto (RBC) [Ratio]on 03-11-2024 Erythrocyte distribution width (RBC) [Ratio] Erythrocyte distribution width [Ratio] by Automated count 11.0-15.0 [facility] Estimated glomerular filtrat ion rate (GFR) non- Americanon 03-11-2024 GFR/1.73 sq M.predicted among non-blacks MDRD (S/P/Bld) [Vol rate/Area] Estimated glomerular filtration rate (GFR) non- Low >=60 mL/min/1.73m 2 [facility] Globulin Calc (S) [Mass/Vol] on 03-11-2024 Globulin (S) [Mass/Vol] Serum globulin measurement by calculation (mass/volume) [facility] Hematocrit Auto (Bld) [Volum e fraction]on 03-11-2024 Hematocrit (Bld) [Volume fraction] Hematocrit [Volume Fraction] of Blood by Automated count Low 42.0-54.0 [facility] Hemoglobin [Mass/volume] in Bloodon 03-11-2024 Hemoglobin (Bld) [Mass/Vol] Hemoglobin [Mass/volume] in Blood Low 14.0-18.0 [facility] INR in Platelet poor plasma by Coagulation assayon 03-11-2024 INR Coag (PPP) [Relative time] INR in Platelet poor plasma by Coagulation assay [facility] Comment on above: DESIRED INR:2.0-3.0 CONDITIONS NOT LISTED BELOW2.5-3.5 FOR PROSTHETIC HEART VALVE REPLACEMENT2.5-3.5 RECURRENT THROMBOSIS Laboratory - Chemistry and C hemistry - challengeon 03-11-2024 Bilirubin Ql (U) Negative NEGATIVE [facility] Glucose (U) [Mass[facility]Vol] [facility] Ketones Ql ([facility]) Negative NEGATIVE [facility] pH (U) 6.0 [pH] 5.0-9.0 [facility] Specific gravity (U) [Rel density] 1.025 1.005-1.025 [facility] Urobilinogen Qn (U) 0.2 {Americo'U}/dL 0.2-1.0 [facility] Albumin [Mass/Vol] 3.8 g/dL 3.4-5.0 [facility] ALP [Catalytic activity/Vol] 66 U/L 46-116 [facility] ALT [Catalytic activity/Vol] 26 U/L 16-63 [facility] AST [Catalytic activity/Vol] 25 U/L 15-37 [facility] Bilirubin [Mass/Vol] 0.5 mg/dL 0.2-1.0 [facility] Calcium [Mass/Vol] 8.8 mg/dL 8.5-10.1 [facility] Chloride [Moles/Vol] 100 mmol/L 98-107 [facility] CO2 [Moles/Vol] 26.3 mmol/L 21.0-32.0 [facility] Creatinine [Mass/Vol] 1.27 mg/dL 0.70-1.30 [facility] GFR/1.73 sq M.predicted MDRD (S/P/Bld) [Vol rate/Area] mL/min/{1.73_m2} >=60 mL/min/1.73m 2 [facility] Glucose [Mass/Vol] 116 mg/dL High 74-106 [facility] Natriuretic peptide B (Bld) [Mass/Vol] 254.0 pg/mL <=1800.0 [facility] Potassium [Moles/Vol] 4.7 mmol/L 3.5-5.1 [facility] Protein [Mass/Vol] 7.0 g/dL 6.4-8.2 [facility] Sodium [Moles/Vol] 136 mmol/L 136-145 [facility] Urea nitrogen [Mass/Vol] 20.0 mg/dL High 7.0-18.0 [facility] Urea nitrogen/Creatinine [Mass ratio] 15.7 mg/mg [facility] Laboratory - Hematology and Cell countson 03-11-2024 Immature granulocytes/100 WBC (Bld) 0.7 % High 0.0-0.5 [facility] Laboratory - Specimen inform ationon 03-11-2024 Appearance (U) CLEAR CLEAR [facility] Color (U) LT. YELLOW YELLOW [facility] Laboratory - Urinalysison Leukocyte esterase Test strip Ql (U) SMALL Abnormal NEGATIVE [facility] Mucus Ql (Urine sed) NONE SEEN NONE SEEN [facility] Nitrite Ql (U) Positive Abnormal NEGATIVE [facility] Protein Ql (U) Negative NEG/TRACE [facility] Leukocytes [#/volume] correc marshal for nucleated erythrocytes in Blood by Automated counon 03-11-2024 WBC corrected for nucl RBC Auto (Bld) [#/Vol] Leukocytes [#/volume] corrected for nucleated erythrocytes in Blood by Automated coun High 4.0-11.0 [facility] Lymphocytes Auto (Bld) [#/Vo l]on 03-11-2024 Lymphocytes (Bld) [#/Vol] Lymphocytes [#/volume] in Blood by Automated count Low 1.2-3.8 [facility] Lymphocytes/100 WBC Auto (Bl d)on 03-11-2024 Lymphocytes/100 WBC (Bld) Lymphocytes/100 leukocytes in Blood by Automated count Low 20.5-60.0 [facility] MCH Auto (RBC) [Entitic mass ]on 03-11-2024 MCH (RBC) [Entitic mass] MCH [Entitic mass] by Automated count 25.9-34.0 [facility] MCHC Auto (RBC) [Mass/Vol]on 03-11-2024 MCHC (RBC) [Mass/Vol] MCHC [Mass/volume] by Automated count 29.9-35.2 [facility] MCV Auto (RBC) [Entitic vol] on 03-11-2024 MCV (RBC) [Entitic vol] MCV [Entitic volume] by Automated count High 80.0-94.0 [facility] Monocytes Auto (Bld) [#/Vol] on 03-11-2024 Monocytes (Bld) [#/Vol] Automated blood monocyte count 0.3-0.8 [facility] [facility] Monocytes/100 WBC Auto (Bld) on 03-11-2024 Monocytes/100 WBC (Bld) Automated monocy te % 1.7-12.0 [facility] Neutrophils Auto (Bld) [#/Vo l]on 03-11-2024 Neutrophils (Bld) [#/Vol] Neutrophils [#/volume] in Blood by Automated count High 1.4-6.5 [facility] Neutrophils/100 WBC Auto (Bl d)on 03-11-2024 Neutrophils/100 WBC (Bld) Automated neutrophil % High 43.0-75.0 [facility] No Panel Informationon 03-11 Urine Bacteria MODERATE #/HPF Abnormal NONE SEEN [facility] Urine Culture Reflexed YES [facility] Urine Occult Blood TRACE-I NEGATIVE [facility] Urine Other Casts NONE SEEN #/LPF NONE SEEN [facility] Urine Other Crystals None Seen #/HPF None Seen [facility] Urine RBC 0-2 #/HPF 0-2 [facility] Urine Squamous Epithelial Cells FEW #/LPF Abnormal NONE/RARE [facility] Urine WBC 10-20 #/HPF Abnormal NONE SEEN [facility] Eosinophils # (Auto) 0.1 10 3/uL 0.0-0.7 [facility] Immature Granulocyte # (Auto) 0.10 10 3/uL High 0.00-0.03 [facility] Troponin I High Sensitivity 6.6 pg/mL 4.0-76.1 [facility] Comment on above: CUT-OFF POINTS HAVE BEEN ESTABLISHED BASED ON THE FOURTHIVERSAL DEFINITION OF MYOCARDIAL INFARCTION. THE UPPERREFERENCE LIMIT (URL) OF TROPONIN, DEFINED THE 99THPERCENTILE OF cTnI DISTRIBUTION IN A REFERENCE POPULATION,HAS BEEN CONFIRMED THE DECISION THRESHOLD FOR MIDIAGNOSIS.99TH PERCENTILE = 76.2 PG/MLNOTE: HIGH-SENSITIVITY TROPONIN ASSAY IS NOT INTENDED TO BEUSED IN ISOLATION BUT SHOULD BE INTERPRETED IN CONJUNCTIONWITH OTHER DIAGNOSTIC AND CLINICAL INFORMATION. Platelet mean volume Auto (B ld) [Entitic vol]on 03-11-2024 Platelet mean volume (Bld) [Entitic vol] Platelet mean volume [Entitic volume] in Blood by Automated count Low 9.5-13.5 [facility] Platelets Auto (Bld) [#/Vol] on 03-11-2024 Platelets (Bld) [#/Vol] Platelets [#/volume] in Blood by Automated count 150-450 [facility] Prothrombin time (PT)on 02-13 PT Coag (PPP) [Time] Prothrombin time (PT) 9.0-11.6 [facility] RBC Auto (Bld) [#/Vol]on RBC (Bld) [#/Vol] Erythrocytes [#/volume] in Blood by Automated count Low 4.70-6.10 [facility] Serum or plasma albumin/glob ulin mass ratioon 03-11-2024 Albumin/Globulin [Mass ratio] Serum or plasma albumin/globulin mass ratio [facility] Serum or plasma anion gap de terminationon 03-11-2024 Anion gap [Moles/Vol] Serum or plasma anion gap determination [facility] Urine Cultureon 03-11-2024 Bacteria identified Cx Nom (U) ORGANISM: Klebsiella oxytoca (O:KLEOXY) [place] Count >100,000 Aerobic ROCIO Charge (NMIC56) ------- SUSCEPTIBILITY ------ ORGANISM: O:KLEOXY ANTIBIOTIC INTERPRETATION ROCIO Amikacin S <16 Amoxacillin/K Clavulanate S <8 Ampicillin/Sulbact am S 88/4 Aztreonam S <4 Cefazolin R >16 Cefepime S <2 Ceftazidime S <1 Ceftazidime/Avibac ellis S <4 Ceftolozane/Tazoba ctam S <2 Ceftriaxone S <1 Cefuroxime S <4 Ciprofloxacin S <0.25 Ertapenem S <0.5 Gentamicin S <2 Levofloxacin S <0.5 Meropenem S <1 Meropenem/Vaborbac ellis S <2 Nitrofurantoin S <32 Piperacillin/Tazob actam S <8 Tetracycline S <4 Tigecycline S <2 Tobramycin S <2 Trimethoprim/Sulfa methoxazole S <0.5 S = SUSCEPTIBLE I = INTERMEDIATE R = RESISTANT BLANK = DATA NOT AVAILABLE, OR DRUG NOT ADVISABLE OR TESTED R* = RESISTANCE DUE TO EXTENDED SPECTRUM BETA-LACTAMASES ESBL = EXTENDED SPECTRUM BETA-LACTAMASE TFG = THYMIDINE-DEPENDEN T STRAIN CHANDRAKANT = BETA-LACTAMASE POSITIVE IB = INDUCIBLE BETA-LACTAMASE. APPEARS IN PLACE OF 'S' WITH SPECIES KNOWN TO POSSESS INDUCIBLE BETA-LACTAMASES. POTENTIALLY THEY MAY BECOME RESISTANT TO ALL B-LACTAM DRUGS. PERFORMED BY: [facility] [address] [id number] PATHOLOGIST LUNCH COUNTER MANAGER GIN LAYNE M.D. Normal [facility] Comment on above: Performed By: #### C UU #### [facility] [address] [id number] [facility] Urine cultureOrdered By: Jv Sal on 03-11-2024 Bacteria identified Cx Nom (U) Abnormal [facility] Bacteria Ur Culton Bacteria identified Cx Nom (U) CULTURE, URINE: No growth (<1,000 CFU/ml) Normal [facility] Comment on above: Performed By: #### 6 30-4 #### [facility] CLIA [id number] [address] [place] [address] [place] Laboratory - Chemistry and C hemistry - challengeon 02-11-2024 Bilirubin Ql (U) Negative Negative [facility] Glucose (U) [Mass/Vol] Negative Negative [facility] Ketones Ql (U) Negative Negative [facility] pH (U) 5.5 [pH] <8.5 [facility] Specific gravity (U) [Rel density] 1.016 1.005-1.030 [facility] Laboratory - Microbiology an d Antimicrobial susceptibilityOrdered By: Leticia Milian on 02-11-2024 Bacteria identified Cx Nom (U) [facility] - Specimen inform ationon 02-11-2024 Appearance (U) Clear Clear [facility] Color (U) Yellow Yellow [facility] - Urinalysison Bacteria LM.HPF (Urine sed) [#/Area] Negative Negative [facility] Hyaline casts LM Ql (Urine sed) 0 /LPF 0 /LPF [facility] Leukocyte esterase Test strip Ql (U) Negative Negative [facility] Nitrite Ql (U) Negative Negative [facility] Protein Ql (U) Negative Negative [facility] No Panel Informationon 02-10 Urine Occult Blood Negative Negative [facility] Urine RBC 0-2 /HPF 0-2 /HPF [facility] Urine Squamous Epithelial Cells None Seen [HPF] [facility] Urine Urobilinogen 0.2 EU/dL 0.2-1.0 EU/dL [facility] Urine WBC 0-5 /HPF 0-5 /HPF [facility] Urinalysis complete panel (U )on 02-11-2024 Bacteria LM.HPF (Urine sed) [#/Area] Negative Normal Negative [facility] Comment on above: Order Comment: Speci men Type: URINE SPECIMEN Ordering Facility: [facility] Address: [address] [place] [address] Performed By: #### 2 4356-8 #### [facility] CLIA [id number] [address] [place] [address] [place] Bilirubin Ql (U) Negative Normal Negative [facility] Comment on above: Order Comment: Speci men Type: URINE SPECIMEN Ordering Facility: [facility] Address: [address] [place] [address] Performed By: #### 2 4356-8 #### [facility] CLIA [id number] [address] [place] [address] [place] Clarity (Unsp spec) Clear Normal Clear [facility] Comment on above: Order Comment: Speci men Type: URINE SPECIMEN Ordering Facility: [facility] Address: [address] [place] [address] Performed By: #### 2 4356-8 #### [facility] CLIA [id number] [address] [place] [address] [place] Color (U) Yellow Normal Yellow [facility] Comment on above: Order Comment: Speci men Type: URINE SPECIMEN Ordering Facility: [facility] Address: [address] [place] [address] Performed By: #### 2 4356-8 #### [facility] CLIA [id number] [address] [place] [address] [place] Epithelial cells LM.HPF (Urine sed) [#/Area] None Seen Normal [facility] Comment on above: Order Comment: Speci men Type: URINE SPECIMEN Ordering Facility: [facility] Address: [address] [place] [address] Performed By: #### 2 4356-8 #### [facility] CLIA [id number] [address] [place] [address] [place] Glucose Test strip (U) [Mass/Vol] Negative Normal Negative [facility] Comment on above: Order Comment: Speci men Type: URINE SPECIMEN Ordering Facility: [facility] Address: [address] [place] [address] Performed By: #### 2 4356-8 #### [facility] CLIA [id number] [address] [place] [address] [place] Hemoglobin Ql (U) Negative Normal Negative [facility] Comment on above: Order Comment: Speci men Type: URINE SPECIMEN Ordering Facility: [facility] Address: [address] [place] [address] Performed By: #### 2 4356-8 #### [facility] CLIA [id number] [address] [place] [address] [place] Hyaline casts (Urine sed) [#/Area] 0 /[LPF] Normal 0 /LPF [facility] Comment on above: Order Comment: Speci men Type: URINE SPECIMEN Ordering Facility: [facility] Address: [address] [place] [address] Performed By: #### 2 4356-8 #### [facility] CLIA [id number] [address] [place] [address] [place] Ketones Ql (U) Negative Normal Negative [facility] Comment on above: Order Comment: Speci men Type: URINE SPECIMEN Ordering Facility: [facility] Address: [address] [place] [address] Performed By: #### 2 4356-8 #### [facility] CLIA [id number] [address] [place] [address] [place] Leukocyte esterase Test strip Ql (U) Negative Normal Negative [facility] Comment on above: Order Comment: Speci men Type: URINE SPECIMEN Ordering Facility: [facility] Address: [address] [place] [address] Performed By: #### 2 4356-8 #### [facility] CLIA [id number] [address] [place] [address] [place] Nitrite Ql (U) Negative Normal Negative [facility] Comment on above: Order Comment: Speci men Type: URINE SPECIMEN Ordering Facility: [facility] Address: [address] [place] [address] Performed By: #### 2 4356-8 #### [facility] CLIA [id number] [address] [place] [address] [place] pH (U) 5.5 [pH] Normal <8.5 [facility] Comment on above: Order Comment: Speci men Type: URINE SPECIMEN Ordering Facility: [facility] Address: [address] [place] [address] Performed By: #### 2 4356-8 #### [facility] CLIA [id number] [address] [place] [address] [place] Protein (U) [Mass/Vol] Negative Normal Negative [facility] Comment on above: Order Comment: Speci men Type: URINE SPECIMEN Ordering Facility: [facility] Address: [address] [place] [address] Performed By: #### 2 4356-8 #### [facility] CLIA [id number] [address] [place] [address] [place] RBC LM.HPF (Urine sed) [#/Area] 0-2 /HPF Normal 0-2 /HPF [facility] Comment on above: Order Comment: Speci men Type: URINE SPECIMEN Ordering Facility: [facility] Address: [address] [place] [address] Performed By: #### 2 4356-8 #### [facility] CLIA [id number] [address] [place] [address] [place] Specific gravity (U) [Rel density] 1.016 Normal 1.005-1.030 [facility] Comment on above: Order Comment: Speci men Type: URINE SPECIMEN Ordering Facility: [facility] Address: [address] [place] [address] Performed By: #### 2 4356-8 #### [facility] CLIA [id number] [address] [place] [address] [place] Urobilinogen Ql (U) 0.2 EU/dL Normal 0.2-1.0 EU/dL [facility] Comment on above: Order Comment: Speci men Type: URINE SPECIMEN Ordering Facility: [facility] Address: [address] [place] [address] Performed By: #### 2 4356-8 #### [facility] CLIA [id number] [address] [place] [address] [place] WBC LM.HPF (Urine sed) [#/Area] 0-5 /HPF Normal 0-5 /HPF [facility] Comment on above: Order Comment: Speci men Type: URINE SPECIMEN Ordering Facility: [facility] Address: [address] [place] [address] Performed By: #### 2 4356-8 #### [facility] CLIA [id number] [address] [place] [address] [place] CNOVon 02-08-2024 CNOV Office Visit (UROLLN) -------- NORBERTO WASHINGTON ([id number]) 1940 M Date Time Provider Department 02/08/24 8:30 AM LETICIA MILIAN During your visit today, we recorded the following information about you: Pulse Blood pressure Weight 54/minute 119/58 102.1 kg Leticia Milian, MEDICAL APPLIANCE MAKER.[facility] 02/08/2024 9:06 AM Signed Norberto Washington [address] [facility] [address] HISTORY OF PRESENT ILLNESS: Seen 08/04/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 1. INCOMPLETE EMPTYING [...] No le (more content not included)... Normal [facility] Basophils Auto (Bld) [#/Vol] on 01-30-2024 Basophils (Bld) [#/Vol] Automated basoph il count 0.0-0.1 [facility] Basophils/100 WBC Auto (Bld) on 01-30-2024 Basophils/100 WBC (Bld) Automated basoph il % 0.2-2.0 [facility] Eosinophils/100 WBC Auto (Bl d)on 01-30-2024 Eosinophils/100 WBC (Bld) Automated eosinophil % 0.9-7.0 [facility] Erythrocyte distribution wid th Auto (RBC) [Ratio]on 01-30-2024 Erythrocyte distribution width (RBC) [Ratio] Erythrocyte distribution width [Ratio] by Automated count 11.0-15.0 [facility] Estimated glomerular filtrat ion rate (GFR) non- Americanon 01-30-2024 GFR/1.73 sq M.predicted among non-blacks MDRD (S/P/Bld) [Vol rate/Area] Estimated glomerular filtration rate (GFR) non- Low >=60 mL/min/1.73m 2 [facility] Globulin Calc (S) [Mass/Vol] on 01-30-2024 Globulin (S) [Mass/Vol] Serum globulin measurement by calculation (mass/volume) [facility] Hematocrit Auto (Bld) [Volum e fraction]on 01-30-2024 Hematocrit (Bld) [Volume fraction] Hematocrit [Volume Fraction] of Blood by Automated count Low 42.0-54.0 [facility] Hemoglobin [Mass/volume] in Bloodon 01-30-2024 Hemoglobin (Bld) [Mass/Vol] Hemoglobin [Mass/volume] in Blood 14.0-18.0 [facility] INR in Platelet poor plasma by Coagulation assayon 01-30-2024 INR Coag (PPP) [Relative time] INR in Platelet poor plasma by Coagulation assay [facility] Comment on above: DESIRED INR:2.0-3.0 CONDITIONS NOT LISTED BELOW2.5-3.5 FOR PROSTHETIC HEART VALVE REPLACEMENT2.5-3.5 RECURRENT THROMBOSIS Laboratory - Chemistry and C hemistry - challengeon 01-30-2024 Albumin [Mass/Vol] 3.9 g/dL 3.4-5.0 [facility] ALP [Catalytic activity/Vol] 79 U/L 46-116 [facility] ALT [Catalytic activity/Vol] 25 U/L 16-63 [facility] AST [Catalytic activity/Vol] 25 U/L 15-37 [facility] Bilirubin [Mass/Vol] 0.4 mg/dL 0.2-1.0 [facility] Calcium [Mass/Vol] 9.3 mg/dL 8.5-10.1 [facility] Chloride [Moles/Vol] 103 mmol/L 98-107 [facility] CO2 [Moles/Vol] 24.9 mmol/L 21.0-32.0 [facility] Creatinine [Mass/Vol] 1.32 mg/dL High 0.70-1.30 [facility] GFR/1.73 sq M.predicted MDRD (S/P/Bld) [Vol rate/Area] mL/min/{1.73_m2} >=60 mL/min/1.73m 2 [facility] Glucose [Mass/Vol] 113 mg/dL High 74-106 [facility] Magnesium [Mass/Vol] 2.2 mg/dL 1.8-2.4 [facility] Potassium [Moles/Vol] 4.5 mmol/L 3.5-5.1 [facility] Protein [Mass/Vol] 7.3 g/dL 6.4-8.2 [facility] Sodium [Moles/Vol] 138 mmol/L 136-145 [facility] Urea nitrogen [Mass/Vol] 18.0 mg/dL 7.0-18.0 [facility] Urea nitrogen/Creatinine [Mass ratio] 13.6 mg/mg [facility] TSH Qn 7.582 m[IU]/L High 0.358-3.740 [facility] Laboratory - Hematology and Cell countson 01-30-2024 Immature granulocytes/100 WBC (Bld) 0.5 % 0.0-0.5 [facility] Leukocytes [#/volume] correc marshal for nucleated erythrocytes in Blood by Automated counon 01-30-2024 WBC corrected for nucl RBC Auto (Bld) [#/Vol] Leukocytes [#/volume] corrected for nucleated erythrocytes in Blood by Automated coun 4.0-11.0 [facility] Lymphocytes Auto (Bld) [#/Vo l]on 01-30-2024 Lymphocytes (Bld) [#/Vol] Lymphocytes [#/volume] in Blood by Automated count 1.2-3.8 [facility] Lymphocytes/100 WBC Auto (Bl d)on 01-30-2024 Lymphocytes/100 WBC (Bld) Lymphocytes/100 leukocytes in Blood by Automated count 20.5-60.0 [facility] MCH Auto (RBC) [Entitic mass ]on 01-30-2024 MCH (RBC) [Entitic mass] MCH [Entitic mass] by Automated count 25.9-34.0 [facility] MCHC Auto (RBC) [Mass/Vol]on 01-30-2024 MCHC (RBC) [Mass/Vol] MCHC [Mass/volume] by Automated count High 29.9-35.2 [facility] MCV Auto (RBC) [Entitic vol] on 01-30-2024 MCV (RBC) [Entitic vol] MCV [Entitic volume] by Automated count 80.0-94.0 [facility] Monocytes Auto (Bld) [#/Vol] on 01-30-2024 Monocytes (Bld) [#/Vol] Automated blood monocyte count High 0.3-0.8 [facility] Monocytes/100 WBC Auto (Bld) on 01-30-2024 Monocytes/100 WBC (Bld) Automated monocy te % High 1.7-12.0 [facility] Neutrophils Auto (Bld) [#/Vo l]on 01-30-2024 Neutrophils (Bld) [#/Vol] Neutrophils [#/volume] in Blood by Automated count 1.4-6.5 [facility] Neutrophils/100 WBC Auto (Bl d)on 01-30-2024 Neutrophils/100 WBC (Bld) Automated neutrophil % 43.0-75.0 [facility] No Panel Informationon 01-29 Troponin I High Sensitivity 18.5 pg/mL 4.0-76.1 [facility] Comment on above: CUT-OFF POINTS HAVE BEEN [...] Eosinophils # (Auto) 0.2 10 3/uL 0.0-0.7 [facility] Immature Granulocyte # (Auto) 0.05 10 3/uL High 0.00-0.03 [facility] Platelet mean volume Auto (B ld) [Entitic vol]on 01-30-2024 Platelet mean volume (Bld) [Entitic vol] Platelet mean volume [Entitic volume] in Blood by Automated count Low 9.5-13.5 [facility] Platelets Auto (Bld) [#/Vol] on 01-30-2024 Platelets (Bld) [#/Vol] Platelets [#/volume] in Blood by Automated count 150-450 [facility] Prothrombin time (PT)on 01-13 PT Coag (PPP) [Time] Prothrombin time (PT) 9.0-11.6 [facility] RBC Auto (Bld) [#/Vol]on RBC (Bld) [#/Vol] Erythrocytes [#/volume] in Blood by Automated count Low 4.70-6.10 [facility] Serum or plasma albumin/glob ulin mass ratioon 01-30-2024 Albumin/Globulin [Mass ratio] Serum or plasma albumin/globulin mass ratio [facility] Serum or plasma anion gap de terminationon 01-30-2024 Anion gap [Moles/Vol] Serum or plasma anion gap determination [facility] Basophils Auto (Bld) [#/Vol] on 12-30-2023 Basophils (Bld) [#/Vol] Automated basoph il count 0.0-0.1 [facility] Basophils/100 WBC Auto (Bld) on 12-30-2023 Basophils/100 WBC (Bld) Automated basoph il % 0.2-2.0 [facility] Cholesterol in LDL Calc [Mas s/Vol]on 12-30-2023 Cholesterol in LDL [Mass/Vol] Cholesterol in LDL [Mass/volume] in Serum or Plasma by calculation [facility] Comment on above: <100 mg/dl [id number] 0-129 mg/dl NEAR OR ABOVE [id number] mg/dl BORDERLINE [id number] mg/dl HIGH>190 mg/dl VERY HIGH Cholesterol in VLDL Calc [Ma ss/Vol]on 12-30-2023 Cholesterol in VLDL [Mass/Vol] Cholesterol in VLDL [Mass/volume] in Serum or Plasma by calculation [facility] Eosinophils/100 WBC Auto (Bl d)on 12-30-2023 Eosinophils/100 WBC (Bld) Automated eosinophil % 0.9-7.0 [facility] Erythrocyte distribution wid th Auto (RBC) [Ratio]on 12-30-2023 Erythrocyte distribution width (RBC) [Ratio] Erythrocyte distribution width [Ratio] by Automated count 11.0-15.0 [facility] Estimated glomerular filtrat ion rate (GFR) non- Americanon 12-30-2023 GFR/1.73 sq M.predicted among non-blacks MDRD (S/P/Bld) [Vol rate/Area] Estimated glomerular filtration rate (GFR) non- Low >=60 mL/min/1.73m 2 [facility] Globulin Calc (S) [Mass/Vol] on 12-30-2023 Globulin (S) [Mass/Vol] Serum globulin measurement by calculation (mass/volume) [facility] Glucose mean value [Mass/vol ume] in Blood Estimated from glycated hemoglobinon 12-30-2023 Average glucose Estimated from glycated hemoglobin (Bld) [Mass/Vol] Glucose mean value [Mass/volume] in Blood Estimated from glycated hemoglobin [facility] Hematocrit Auto (Bld) [Volum e fraction]on 12-30-2023 Hematocrit (Bld) [Volume fraction] Hematocrit [Volume Fraction] of Blood by Automated count Low 42.0-54.0 [facility] Hemoglobin [Mass/volume] in Bloodon 12-30-2023 Hemoglobin (Bld) [Mass/Vol] Hemoglobin [Mass/volume] in Blood 14.0-18.0 [facility] Laboratory - Chemistry and C hemistry - challengeon 12-30-2023 Albumin [Mass/Vol] 3.6 g/dL 3.4-5.0 [facility] ALP [Catalytic activity/Vol] 58 U/L 46-116 [facility] ALT [Catalytic activity/Vol] 28 U/L 16-63 [facility] AST [Catalytic activity/Vol] 21 U/L 15-37 [facility] Bilirubin [Mass/Vol] 0.7 mg/dL 0.2-1.0 [facility] Calcium [Mass/Vol] 8.8 mg/dL 8.5-10.1 [facility] Chloride [Moles/Vol] 102 mmol/L 98-107 [facility] Cholesterol [Mass/Vol] 168 mg/dL <=200 [facility] Cholesterol in HDL [Mass/Vol] 55 mg/dL 40-60 [facility] Comment on above: > or =60 mg/dl - LOW CARDIOVASCULAR RISK<40 mg/dl - HIGH CARDIOVASCULAR RISK CO2 [Moles/Vol] 27.5 mmol/L 21.0-32.0 [facility] Creatinine [Mass/Vol] 1.44 mg/dL High 0.70-1.30 [facility] GFR/1.73 sq M.predicted MDRD (S/P/Bld) [Vol rate/Area] 57 mL/min/{1.73_m2} Low >=60 mL/min/1.73m 2 [facility] Glucose [Mass/Vol] 101 mg/dL 74-106 [facility] Potassium [Moles/Vol] 4.4 mmol/L 3.5-5.1 [facility] Protein [Mass/Vol] 6.7 g/dL 6.4-8.2 [facility] Sodium [Moles/Vol] 138 mmol/L 136-145 [facility] Triglyceride [Mass/Vol] 134 mg/dL <=150 [facility] Urea nitrogen [Mass/Vol] 22.0 mg/dL High 7.0-18.0 [facility] Urea nitrogen/Creatinine [Mass ratio] 15.3 mg/mg [facility] Laboratory - Hematology and Cell countson 12-30-2023 HbA1c (Bld) [Mass fraction] 5.9 % 4.5-6.2 [facility] Comment on above: ADA RECOMMENDED LIMI T 4.0 - 6.0ADA THERAPEUTIC TARGET < 7.0ACTION SUGGESTED> 7.0 Immature granulocytes/100 WBC (Bld) 0.5 % 0.0-0.5 [facility] Leukocytes [#/volume] correc marshal for nucleated erythrocytes in Blood by Automated counon 12-30-2023 WBC corrected for nucl RBC Auto (Bld) [#/Vol] Leukocytes [#/volume] corrected for nucleated erythrocytes in Blood by Automated coun 4.0-11.0 [facility] Lymphocytes Auto (Bld) [#/Vo l]on 12-30-2023 Lymphocytes (Bld) [#/Vol] Lymphocytes [#/volume] in Blood by Automated count 1.2-3.8 [facility] Lymphocytes/100 WBC Auto (Bl d)on 12-30-2023 Lymphocytes/100 WBC (Bld) Lymphocytes/100 leukocytes in Blood by Automated count 20.5-60.0 [facility] MCH Auto (RBC) [Entitic mass ]on 12-30-2023 MCH (RBC) [Entitic mass] MCH [Entitic mass] by Automated count 25.9-34.0 [facility] MCHC Auto (RBC) [Mass/Vol]on 12-30-2023 MCHC (RBC) [Mass/Vol] MCHC [Mass/volume] by Automated count 29.9-35.2 [facility] MCV Auto (RBC) [Entitic vol] on 12-30-2023 MCV (RBC) [Entitic vol] MCV [Entitic volume] by Automated count 80.0-94.0 [facility] Microalbumin [Mass/volume] i n Urineon 12-30-2023 Albumin DL <= 20 mg/L (U) [Mass/Vol] Microalbumin [Mass/volume] in Urine <=30.0 [facility] Monocytes Auto (Bld) [#/Vol] on 12-30-2023 Monocytes (Bld) [#/Vol] Automated blood monocyte count High 0.3-0.8 [facility] Monocytes/100 WBC Auto (Bld) on 12-30-2023 Monocytes/100 WBC (Bld) Automated monocy te % High 1.7-12.0 [facility] Neutrophils Auto (Bld) [#/Vo l]on 12-30-2023 Neutrophils (Bld) [#/Vol] Neutrophils [#/volume] in Blood by Automated count 1.4-6.5 [facility] Neutrophils/100 WBC Auto (Bl d)on 12-30-2023 Neutrophils/100 WBC (Bld) Automated neutrophil % 43.0-75.0 [facility] No Panel Informationon 12-29 Eosinophils # (Auto) 0.2 10 3/uL 0.0-0.7 [facility] Immature Granulocyte # (Auto) 0.04 10 3/uL High 0.00-0.03 [facility] Urine Random Creatinine 101.28 mg/dL 20.00-300. 00 [facility] Platelet mean volume Auto (B ld) [Entitic vol]on 12-30-2023 Platelet mean volume (Bld) [Entitic vol] Platelet mean volume [Entitic volume] in Blood by Automated count Low 9.5-13.5 [facility] Platelets Auto (Bld) [#/Vol] on 12-30-2023 Platelets (Bld) [#/Vol] Platelets [#/volume] in Blood by Automated count 150-450 [facility] RBC Auto (Bld) [#/Vol]on RBC (Bld) [#/Vol] Erythrocytes [#/volume] in Blood by Automated count Low 4.70-6.10 [facility] Serum or plasma albumin/glob ulin mass ratioon 12-30-2023 Albumin/Globulin [Mass ratio] Serum or plasma albumin/globulin mass ratio [facility] Serum or plasma anion gap de terminationon 12-30-2023 Anion gap [Moles/Vol] Serum or plasma anion gap determination [facility] Serum or plasma total choles terol/high density lipoprotein (HDL) cholesterol mass zenobia 12-30-2023 Cholesterol.total/Carri sterol in HDL [Mass ratio] Serum or plasma total cholesterol/high density lipoprotein (HDL) cholesterol mass rat [facility] Comment on above: 3.3 - 4.4 LOW RISK4. 4 - 7.1 AVERAGE RISK7.1 - 11.0 MODERATE RISK>11.0 HIGH RISK Urine microalbumin/creatinin e mass ratioon 12-30-2023 Albumin/Creatinine DL <= 20 mg/L (U) [Mass ratio] Urine microalbumin/creat inine mass ratio 0.0-29.9 [facility] Comment on above: NO MICROALBUMINURIA 0-29 MG/GCLINICAL MICROALBUMINURIA 30-300 MG/GMACROALBUMINURIA >300 MG/G CHEMISTRYOrdered By: SYSTEM SYSTEM on 12-17-2023 CRP [Mass/Vol] 0.2 mg/dL Normal <=1.9mg/dL Remisol Ch em CRPon 12-17-2023 CRP [Mass/Vol] 0.2 mg/dL Normal <=1.9 [facility] Comment on above: Performed By: #### 2 [id number] #### [facility] [address] [place] [address] [facility] PLATELET COUNTon 2023 Platelets (Bld) [#/Vol] 239.0 10*3/uL [facility] Original Ordering Provider: DO Sterling HANNA [facility] HEMATOLOGYOrdered By: Nat Aldridge on 12-17-2023 ESR (Bld) [Velocity] 4 mm/h Normal 0 - 19 mm/hr [facility] HemeAutoSS HEMATOLOGYOrdered By: SYSTEM SYSTEM on 12-17-2023 Platelet 239.0 E9/L Normal 150.0 - 500.0 E9/L Remisol Heme Ophthalmic OCT panelon 12-16 [facility] Right Eye Images reviewed and comparison made to baseline, Images reviewed. To assess optic nerve function and for use in future follow-up. Reliability: good and adequate. Left Eye Images reviewed and comparison made to baseline, Images reviewed. To assess optic nerve function and for use in future follow-up. Reliability: good and adequate. 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 [facility] Radiology Study observation (narrative) [facility] Optical coherence tomography study reporton 12-17-2023 [facility] Radiology Study observation (narrative) [facility] Platelet Counton 12-17-2023 Platelet 239.0 E9/L Normal 150.0-500.0 [facility] Comment on above: Performed By: #### 2 [id number] #### [facility] [address] [place] [address] Sed Rate Automatedon 024 ESR (Bld) [Velocity] 4 mm/h Normal 0-19 [facility] Comment on above: Performed By: #### 1 [id number] #### [facility] [address] [facility] [place] [address] CNOVon 08-04-2023 CNOV Office Visit (UROLLN) -------- NORBERTO WASHINGTON ([id number]) 1940 M Date Time Provider Department 08/04/23 9:00 AM LETICIA MILIAN UROLLN During your visit today, we recorded the following information about you: Pulse Blood pressure Weight 65/minute 130/56 99.8 kg Leticia Milian, MEDICAL APPLIANCE MAKER.[facility] 08/04/2023 9:23 AM Signed Norberto Washington [address] [facility] [address] HISTORY OF PRESENT ILLNESS: Seen 02/02/23 for [...] finding today 08/04/23) 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 PVR=36 ML UA 07/26/23=trace leuk esterase Culture 07/26/23=<10,000 CFU/ml Lactose positive gram negative bacilli Abnormal A1C 07/26/23=6.4 Location: BPH w obs/luts, UTI Pain Character: none Severity Scale: see AUA score, see lab Duration: BPH w obs/luts, UTI [facility] SYMPTOMS SCORE. 1. INCOMPLETE EMPTYING [...] (Diagnostic Possibilitie (more content not included)... Normal [facility] Bacteria Ur Culton 4 Bacteria identified Cx Nom (U) ORGANISM ID: 1 <10,000 CFU/ml Lactose positive gram negative bacilli Insignificant colony count. No further workup. Normal [facility] Comment on above: Performed By: #### 6 30-4 #### [facility] CLIA [id number] [address] [place] [address] [place] Glucose mean value [Mass/vol ume] in Blood Estimated from glycated hemoglobinon 07-26-2023 Average glucose Estimated from glycated hemoglobin (Bld) [Mass/Vol] 137 mg/dL [facility] Comment on above: eAG: (Estimated aver age glucose) is a calculated value from HgbA1c and is authorization representative of the average blood glucose level in the last 2-3 month period. HbA1c (Bld)on 07-26-2023 Average glucose Estimated from glycated hemoglobin (Bld) [Mass/Vol] 137 mg/dL Normal [facility] Comment on above: Order Comment: Domonique garcia Type: BLOOD SPECIMEN Ordering Facility: Dr Kate Baptiste Office Address: [address] [place] [address] Result Comment: eAG: (Estimated average glucose) is a calculated value from HgbA1c and is authorization representative of the average blood glucose level in the last 2-3 month period. Performed By: #### 5 5454-3 #### [facility] CLIA [id number] [address] [place] [address] [place] HbA1c (Bld) [Mass fraction] 6.4 % High 4.3-5.6 [facility] Comment on above: Order Comment: Domonique garcia Type: BLOOD SPECIMEN Ordering Facility: Dr Kate Baptiste Office Address: [address] [place] [address] Result Comment: [place] Diabetes Association guidelines indicate that patients with HgbA1c in the range 5.7-6.4% are at increased risk for development of diabetes, and intervention by lifestyle modification may be beneficial. HgbA1c greater or equal to 6.5% is considered diagnostic of diabetes. Performed By: #### 5 5454-3 #### [facility] CLIA [id number] [facility] [place] [address] [place] Laboratory - Hematology and Cell countson 07-26-2023 HbA1c (Bld) [Mass fraction] 6.4 % High 4.3-5.6 [facility] Comment on above: [place] Diabetes As sociation guidelines indicate that patients with HgbA1c in the range 5.7-6.4% are at increased risk for development of diabetes, and intervention by lifestyle modification may be beneficial. HgbA1c greater or equal to 6.5% is considered diagnostic of diabetes. UrinalysisOrdered By: Leticia Milian on 07-26-2023 Urinalysis complete panel (U) [facility] Urinalysis complete panel (U )on 07-26-2023 Bacteria LM.HPF (Urine sed) [#/Area] Negative Normal Negative [facility] Comment on above: Order Comment: Speci men Type: URINE SPECIMEN Ordering Facility: [facility] Address: [address] [place] [address] Performed By: #### 2 4356-8 #### [facility] CLIA [id number] [address] [place] [address] [place] Bilirubin Ql (U) Negative Normal Negative [facility] Comment on above: Order Comment: Speci men Type: URINE SPECIMEN Ordering Facility: [facility] Address: [address] [place] [address] Performed By: #### 2 4356-8 #### [facility] CLIA [id number] [address] [place] [address] [place] Clarity (Unsp spec) Clear Normal Clear [facility] Comment on above: Order Comment: Speci men Type: URINE SPECIMEN Ordering Facility: [facility] Address: [address] [place] [address] Performed By: #### 2 4356-8 #### [facility] CLIA [id number] [address] [place] [address] [place] Color (U) Yellow Normal Yellow [facility] Comment on above: Order Comment: Speci men Type: URINE SPECIMEN Ordering Facility: [facility] Address: [address] [place] [address] Performed By: #### 2 4356-8 #### [facility] CLIA [id number] [address] [place] [address] [place] Epithelial cells LM.HPF (Urine sed) [#/Area] None Seen Normal [facility] Comment on above: Order Comment: Speci men Type: URINE SPECIMEN Ordering Facility: [facility] Address: [address] [place] [address] Performed By: #### 2 4356-8 #### [facility] CLIA [id number] [address] [place] [address] [place] Glucose Test strip (U) [Mass/Vol] Negative Normal Negative [facility] Comment on above: Order Comment: Speci men Type: URINE SPECIMEN Ordering Facility: [facility] Address: [address] [place] [address] Performed By: #### 2 4356-8 #### [facility] CLIA [id number] [address] [place] [address] [place] Hemoglobin Ql (U) Negative Normal Negative [facility] Comment on above: Order Comment: Speci men Type: URINE SPECIMEN Ordering Facility: [facility] Address: [address] [place] [address] Performed By: #### 2 4356-8 #### [facility] CLIA [id number] [address] [place] [address] [place] Hyaline casts (Urine sed) [#/Area] 1-3 /LPF Abnormal 0 /LPF [facility] Comment on above: Order Comment: Speci men Type: URINE SPECIMEN Ordering Facility: [facility] Address: [address] [place] [address] Performed By: #### 2 4356-8 #### [facility] CLIA [id number] [address] [place] [address] [place] Ketones Ql (U) Negative Normal Negative [facility] Comment on above: Order Comment: Speci men Type: URINE SPECIMEN Ordering Facility: [facility] Address: [address] [place] [address] Performed By: #### 2 4356-8 #### [facility] CLIA [id number] [address] [place] [address] [place] Leukocyte esterase Test strip Ql (U) Trace Abnormal Negative [facility] Comment on above: Order Comment: Speci men Type: URINE SPECIMEN Ordering Facility: [facility] Address: [address] [place] [address] Performed By: #### 2 4356-8 #### [facility] CLIA [id number] [address] [place] [address] [place] Nitrite Ql (U) Negative Normal Negative [facility] Comment on above: Order Comment: Speci men Type: URINE SPECIMEN Ordering Facility: [facility] Address: [address] [place] [address] Performed By: #### 2 4356-8 #### [facility] CLIA [id number] [address] [place] [address] [place] pH (U) 6.0 [pH] Normal <8.5 [facility] Comment on above: Order Comment: Speci men Type: URINE SPECIMEN Ordering Facility: [facility] Address: [address] [place] [address] Performed By: #### 2 4356-8 #### [facility] CLIA [id number] [address] [place] [address] [place] Protein (U) [Mass/Vol] Negative Normal Negative [facility] Comment on above: Order Comment: Speci men Type: URINE SPECIMEN Ordering Facility: [facility] Address: [address] [place] [address] Performed By: #### 2 4356-8 #### [facility] CLIA [id number] [address] [place] [address] [place] RBC LM.HPF (Urine sed) [#/Area] 0-2 /HPF Normal 0-2 /HPF [facility] Comment on above: Order Comment: Speci men Type: URINE SPECIMEN Ordering Facility: [facility] Address: [address] [place] [address] Performed By: #### 2 4356-8 #### [facility] CLIA [id number] [address] [place] [address] [place] Specific gravity (U) [Rel density] 1.016 Normal 1.005-1.030 [facility] Comment on above: Order Comment: Speci men Type: URINE SPECIMEN Ordering Facility: [facility] Address: [address] [place] [address] Performed By: #### 2 4356-8 #### [facility] CLIA [id number] [address] [place] [address] [place] Urobilinogen Ql (U) 0.2 EU/dL Normal 0.2-1.0 EU/dL [facility] Comment on above: Order Comment: Speci men Type: URINE SPECIMEN Ordering Facility: [facility] Address: [address] [place] [address] Performed By: #### 2 4356-8 #### [facility] CLIA [id number] [address] [place] [address] [place] WBC LM.HPF (Urine sed) [#/Area] 0-5 /HPF Normal 0-5 /HPF [facility] Comment on above: Order Comment: Speci men Type: URINE SPECIMEN Ordering Facility: [facility] Address: [address] [place] [address] Performed By: #### 2 4356-8 #### [facility] CLIA [id number] [address] [place] [address] [place] Urine culture routineOrdered By: Leticia Milian on 07-26-2023 Bacteria identified Cx Nom (U) [facility] Basophils Auto (Bld) [#/Vol] on 07-22-2023 Basophils (Bld) [#/Vol] 0.0 10 3/uL 0.0-0.1 [facility] Basophils/100 WBC Auto (Bld) on 07-22-2023 Basophils/100 WBC (Bld) 0.5 % 0.2-2.0 [facility] Eosinophils/100 WBC Auto (Bl d)on 07-22-2023 Eosinophils/100 WBC (Bld) 2.7 % 0.9-7.0 [facility] Erythrocyte distribution wid th Auto (RBC) [Ratio]on 07-22-2023 Erythrocyte distribution width (RBC) [Ratio] 12.2 % 11.0-15.0 [facility] Estimated glomerular filtrat ion rate (GFR) non- Americanon 07-22-2023 GFR/1.73 sq M.predicted among non-blacks MDRD (S/P/Bld) [Vol rate/Area] 49 mL/min/{1.73_m2} Low >=60 [facility] Hematocrit Auto (Bld) [Volum e fraction]on 07-22-2023 Hematocrit (Bld) [Volume fraction] 37.8 % Low 42.0-54.0 [facility] Hemoglobin [Mass/volume] in Bloodon 07-22-2023 Hemoglobin (Bld) [Mass/Vol] 12.6 g/dL Low 14.0-18.0 [facility] Yuri 07-22-2023 L Specimen: [id number] Received: 07/22/23 Status: MARY Jarrell Num: [id number] Spec Type: Surgical Subm Dr: Jhon Tejada DPM, MS Tissues: A DIGIT AMPUTATION (DISTAL RT FOURTH TOE) Procedures: HE/2, Gross/Micro L4, Decalcification Age/ Patient Sex Location Account Attending Physician Norberto Washington 83/M LABELL [id number] Jhon Tejada DPM, MS SPEC NUM: [id number] RECD: 07/22/23 STATUS: MARY JARRELL NUM: [id number] CAITY: 07/22/[address]: Jhon Tejada DPM, MS ENTERED: 07/22/[address]: Anderson,Lab SPEC TYPE: Surgical DEPT: GILBERTO [...] history: Disruption of surgical wound CPT Codes 19392 -- -- Specimen: [id number] Received: 07/22/23 Status: MARY Jarrell Num: [id number] Spec Type: Surgical Subm Dr: Jhon Tejada,CHRISTIAN, MS Tissues: A DIGIT AMPUTATION (DISTAL RT FOURTH TOE) Procedures: HE/2, Gross/Micro L4, Decalcification -- Patient: Norberto Washington [id number] (Continued) -- Signed (signatu re on file) Gin Layne MD 07/26/23 1525 Normal [facility] Laboratory - Chemistry and C hemistry - challengeon 07-22-2023 Calcium [Mass/Vol] 9.0 mg/dL 8.5-10.1 [facility] Chloride [Moles/Vol] 98 mmol/L 98-107 [facility] CO2 [Moles/Vol] 27.0 mmol/L 21.0-32.0 [facility] Creatinine [Mass/Vol] 1.39 mg/dL High 0.70-1.30 [facility] GFR/1.73 sq M.predicted MDRD (S/P/Bld) [Vol rate/Area] 59 mL/min/{1.73_m2} Low >=60 [facility] Glucose [Mass/Vol] 120 mg/dL High 74-106 [facility] Potassium [Moles/Vol] 4.9 mmol/L 3.5-5.1 [facility] Sodium [Moles/Vol] 135 mmol/L Low 136-145 [facility] Urea nitrogen [Mass/Vol] 23.0 mg/dL High 7.0-18.0 [facility] Urea nitrogen/Creatinine [Mass ratio] 16.5 mg/mg [facility] Laboratory - Hematology and Cell countson 07-22-2023 Immature granulocytes/100 WBC (Bld) 0.5 % 0.0-0.5 [facility] Leukocytes [#/volume] correc marshal for nucleated erythrocytes in Blood by Automated counon 07-22-2023 WBC corrected for nucl RBC Auto (Bld) [#/Vol] 8.1 10 3/uL 4.0-11.0 [facility] Lymphocytes Auto (Bld) [#/Vo l]on 07-22-2023 Lymphocytes (Bld) [#/Vol] 2.3 10 3/uL 1.2-3.8 [facility] Lymphocytes/100 WBC Auto (Bl d)on 07-22-2023 Lymphocytes/100 WBC (Bld) 28.3 % 20.5-60.0 [facility] MCH Auto (RBC) [Entitic mass ]on 07-22-2023 MCH (RBC) [Entitic mass] 30.7 pg 25.9-34.0 [facility] MCHC Auto (RBC) [Mass/Vol]on 07-22-2023 MCHC (RBC) [Mass/Vol] 33.3 g/dL 29.9-35.2 [facility] MCV Auto (RBC) [Entitic vol] on 07-22-2023 MCV (RBC) [Entitic vol] 92.0 fL 80.0-94.0 [facility] Monocytes Auto (Bld) [#/Vol] on 07-22-2023 Monocytes (Bld) [#/Vol] 1.1 10 3/uL High 0.3-0.8 [facility] Monocytes/100 WBC Auto (Bld) on 07-22-2023 Monocytes/100 WBC (Bld) 13.7 % High 1.7-12.0 [facility] Neutrophils Auto (Bld) [#/Vo l]on 07-22-2023 Neutrophils (Bld) [#/Vol] 4.4 10 3/uL 1.4-6.5 [facility] Neutrophils/100 WBC Auto (Bl d)on 07-22-2023 Neutrophils/100 WBC (Bld) 54.3 % 43.0-75.0 [facility] No Panel Informationon 07-21 Eosinophils # (Auto) 0.2 10 3/uL 0.0-0.7 [facility] Immature Granulocyte # (Auto) 0.04 10 3/uL High 0.00-0.03 [facility] Platelet mean volume Auto (B ld) [Entitic vol]on 07-22-2023 Platelet mean volume (Bld) [Entitic vol] 8.2 fL Low 9.5-13.5 [facility] Platelets Auto (Bld) [#/Vol] on 07-22-2023 Platelets (Bld) [#/Vol] 268 10 3/uL 150-450 [facility] RBC Auto (Bld) [#/Vol]on RBC (Bld) [#/Vol] 4.11 10 6/uL Low 4.70-6.10 [facility] Serum or plasma anion gap de terminationon 07-22-2023 Anion gap [Moles/Vol] 14.9 mmol/L [facility] Yuri 07-12-2023 L Specimen: [id number] Received: 07/12/23 Status: MARY Jarrell Num: [id number] Spec Type: Surgical Subm Dr: Jhon Tejada DPM, MS Tissues: A DIGIT AMPUTATION (LT FOURTH TOE) B DIGIT AMPUTATION (RT FOURTH TOE) Procedures: HE/4, Gross/Micro L4/2, Decalcification/2 Age/ Patient Sex Location Account Attending Physician Norberto Washington Nadine 83/M LABELL [id number] Jhon Tejada DPM, MS SPEC NUM: [id number] RECD: 07/12/23 STATUS: MARY JARRELL NUM: [id number] CAITY: 07/12/[address]: Jhon Tejada DPM, MS ENTERED: 07/12/23 [facility] DR: Anderson,Lab SPEC TYPE: Surgical DEPT: [...] digit. The skin surface is -- Specimen: [id number] Received: 07/12/23 Status: MARY Dania Num: [id number] Spec Type: Surgical Subm Dr: Jhon Tejada,DPKaylin, MS Tissues: A DIGIT AMPUTATION (LT FOURTH TOE) B DIGIT AMPUTATION (RT FOURTH TOE) Procedures: HE/4, Gross/Micro L4/2, Decalcification/2 -- Patient: Norberto Washington [id number] (Continued) -- Specimen: [id number] Received: 07/12/23 (Continued) Gross Description (Continued) Signed (signatu re on file) Yisel Kaminski MD 07/13/231921 -- Specimen: [id number] Received: 07/12/23 Status: MARY Jarrell Num: [id number] Spec Type: Surgical Subm Dr: Jhon Tejada,CHRISTIAN, MS Tissues: A DIGIT AMPUTATION (LT FOURTH TOE) B DIGIT AMPUTATION (RT FOURTH TOE) Procedures: HE/Anabel, Gross/Micro L4/2, Decalcification/2 -- Patient: WashingtonNorberto Nadine [id number] (Continued) -- Specimen: [id number] Received: 07/12/23 (Continued) Gross Description (Continued) 90% [...] foot, osteomyelitis right foot TW CPT Codes 01564 X2 59708 X2 -- -- Specimen: [id number] Received: 07/12/23 Status: MARY Jarrell Num: [id number] Spec Type: Surgical Subm Dr: Jhon Tejada,CHRISTIAN, MS Tissues: A DIGIT AMPUTATION (LT FOURTH TOE) B DIGIT AMPUTATION (RT FOURTH TOE) Procedures: HE/4, Gross/Micro L4/2, Decalcification/2 -- Patient: Norberto Washington [id number] (Continued) -- Signed (signatu re on f (more content not included)... Normal [facility] Basophils Auto (Bld) [#/Vol] on 07-06-2023 Basophils (Bld) [#/Vol] 0.0 10 3/uL 0.0-0.1 [facility] Basophils/100 WBC Auto (Bld) on 07-06-2023 Basophils/100 WBC (Bld) 0.4 % 0.2-2.0 [facility] Eosinophils/100 WBC Auto (Bl d)on 07-06-2023 Eosinophils/100 WBC (Bld) 2.3 % 0.9-7.0 [facility] Erythrocyte distribution wid th Auto (RBC) [Ratio]on 07-06-2023 Erythrocyte distribution width (RBC) [Ratio] 12.4 % 11.0-15.0 [facility] Estimated glomerular filtrat ion rate (GFR) non- Americanon 07-06-2023 GFR/1.73 sq M.predicted among non-blacks MDRD (S/P/Bld) [Vol rate/Area] 59 mL/min/{1.73_m2} Low >=60 [facility] Hematocrit Auto (Bld) [Volum e fraction]on 07-06-2023 Hematocrit (Bld) [Volume fraction] 37.5 % Low 42.0-54.0 [facility] Hemoglobin [Mass/volume] in Bloodon 07-06-2023 Hemoglobin (Bld) [Mass/Vol] 12.5 g/dL Low 14.0-18.0 [facility] Laboratory - Chemistry and C hemistry - challengeon 07-06-2023 Calcium [Mass/Vol] 9.0 mg/dL 8.5-10.1 [facility] Chloride [Moles/Vol] 98 mmol/L 98-107 [facility] CO2 [Moles/Vol] 27.6 mmol/L 21.0-32.0 [facility] Creatinine [Mass/Vol] 1.17 mg/dL 0.70-1.30 [facility] GFR/1.73 sq M.predicted MDRD (S/P/Bld) [Vol rate/Area] mL/min/{1.73_m2} >=60 [facility] Glucose [Mass/Vol] 109 mg/dL High 74-106 [facility] Potassium [Moles/Vol] 5.1 mmol/L 3.5-5.1 [facility] Sodium [Moles/Vol] 134 mmol/L Low 136-145 [facility] Urea nitrogen [Mass/Vol] 23.0 mg/dL High 7.0-18.0 [facility] Urea nitrogen/Creatinine [Mass ratio] 19.7 mg/mg [facility] Laboratory - Hematology and Cell countson 07-06-2023 Immature granulocytes/100 WBC (Bld) 0.4 % 0.0-0.5 [facility] Leukocytes [#/volume] correc marshal for nucleated erythrocytes in Blood by Automated counon 07-06-2023 WBC corrected for nucl RBC Auto (Bld) [#/Vol] 8.0 10 3/uL 4.0-11.0 [facility] Lymphocytes Auto (Bld) [#/Vo l]on 07-06-2023 Lymphocytes (Bld) [#/Vol] 1.8 10 3/uL 1.2-3.8 [facility] Lymphocytes/100 WBC Auto (Bl d)on 07-06-2023 Lymphocytes/100 WBC (Bld) 22.3 % 20.5-60.0 [facility] MCH Auto (RBC) [Entitic mass ]on 07-06-2023 MCH (RBC) [Entitic mass] 30.7 pg 25.9-34.0 [facility] MCHC Auto (RBC) [Mass/Vol]on 07-06-2023 MCHC (RBC) [Mass/Vol] 33.3 g/dL 29.9-35.2 [facility] MCV Auto (RBC) [Entitic vol] on 04-23-2024 MCV (RBC) [Entitic vol] 92.1 fL 80.0-94.0 [facility] [facility] Auto (Bld) [#/Vol] on 07-06-2023 Monocytes (Bld) [#/Vol] 1.2 10 3/uL High 0.3-0.8 [facility] Monocytes/100 WBC Auto (Bld) on 07-06-2023 Monocytes/100 WBC (Bld) 15.0 % High 1.7-12.0 [facility] Neutrophils Auto (Bld) [#/Vo l]on 07-06-2023 Neutrophils (Bld) [#/Vol] 4.8 10 3/uL 1.4-6.5 [facility] Neutrophils/100 WBC Auto (Bl d)on 07-06-2023 Neutrophils/100 WBC (Bld) 59.6 % 43.0-75.0 [facility] No Panel Informationon 07-05 Eosinophils # (Auto) 0.2 10 3/uL 0.0-0.7 [facility] Immature Granulocyte # (Auto) 0.03 10 3/uL 0.00-0.03 [facility] Platelet mean volume Auto (B ld) [Entitic vol]on 07-06-2023 Platelet mean volume (Bld) [Entitic vol] 8.9 fL Low 9.5-13.5 [facility] Platelets Auto (Bld) [#/Vol] on 07-06-2023 Platelets (Bld) [#/Vol] 242 10 3/uL 150-450 [facility] RBC Auto (Bld) [#/Vol]on RBC (Bld) [#/Vol] 4.07 10 6/uL Low 4.70-6.10 [facility] Serum or plasma anion gap de terminationon 07-06-2023 Anion gap [Moles/Vol] 13.5 mmol/L [facility] US venous duplex LE RTon US venous duplex LE RT [facility] [place] [address] Ultrasound Report Signed Patient: Norberto Washington MR#: [id number] 89 : 1940 Acct:[id number] Age/Sex: 83 / M ADM Date: 05/15/23 Loc: ER Room: Type: [facility] Attending Dr: Ordering Provider: Low Carter [...] Gus Wren MD05/16/2023 11:15 AM Dictation Location: [facility]- Tech: Helen Malloy Transcribed By: PAUL 05/16/23 1115 Dictated By: Gus Wren MD 05/16/23 111 Signed By: 05/16/23 1115 Normal [facility] Estimated glomerular filtrat ion rate (GFR) non- Americanon 05-03-2023 GFR/1.73 sq M.predicted among non-blacks MDRD (S/P/Bld) [Vol rate/Area] mL/min/{1.73_m2} >=60 [facility] - Chemistry and C hemistry - challengeon 05-03-2023 Calcium [Mass/Vol] 8.5 mg/dL 8.5-10.1 [facility] Chloride [Moles/Vol] 100 mmol/L 98-107 [facility] CO2 [Moles/Vol] 27.6 mmol/L 21.0-32.0 [facility] Creatinine [Mass/Vol] 1.06 mg/dL 0.70-1.30 [facility] GFR/1.73 sq M.predicted MDRD (S/P/Bld) [Vol rate/Area] mL/min/{1.73_m2} >=60 [facility] Glucose [Mass/Vol] 135 mg/dL 74-106 [facility] Potassium [Moles/Vol] 4.1 mmol/L 3.5-5.1 [facility] Sodium [Moles/Vol] 136 mmol/L 136-145 [facility] Urea nitrogen [Mass/Vol] 19.0 mg/dL 7.0-18.0 [facility] Urea nitrogen/Creatinine [Mass ratio] 17.9 mg/mg [facility] No Panel Informationon 05-03 C-Reactive Protein, Quantitative <0.50 mg/dL <=0.50 [facility] Serum or plasma anion gap de terminationon 05-03-2023 Anion gap [Moles/Vol] 12.5 mmol/L [facility] Estimated glomerular filtrat ion rate (GFR) non- Americanon 04-30-2023 GFR/1.73 sq M.predicted among non-blacks MDRD (S/P/Bld) [Vol rate/Area] mL/min/{1.73_m2} >=60 [facility] - Chemistry and C hemistry - challengeon 04-30-2023 Calcium [Mass/Vol] 8.7 mg/dL 8.5-10.1 [facility] Chloride [Moles/Vol] 101 mmol/L 98-107 [facility] CO2 [Moles/Vol] 29.2 mmol/L 21.0-32.0 [facility] Creatinine [Mass/Vol] 1.06 mg/dL 0.70-1.30 [facility] GFR/1.73 sq M.predicted MDRD (S/P/Bld) [Vol rate/Area] mL/min/{1.73_m2} >=60 [facility] Glucose [Mass/Vol] 93 mg/dL 74-106 [facility] Potassium [Moles/Vol] 4.6 mmol/L 3.5-5.1 [facility] Sodium [Moles/Vol] 136 mmol/L 136-145 [facility] Urea nitrogen [Mass/Vol] 20.0 mg/dL 7.0-18.0 [facility] Urea nitrogen/Creatinine [Mass ratio] 18.9 mg/mg [facility] No Panel Informationon 04-30 C-Reactive Protein, Quantitative 0.50 mg/dL <=0.50 [facility] Vancomycin Level Trough 11.0 ug/mL 5.0-20.0 [facility] Serum or plasma anion gap de terminationon 04-30-2023 Anion gap [Moles/Vol] 10.4 mmol/L [facility] GLYCOHEMOGLOBIN A1Con 2022 ADA RECOMMENDATION SEE BELOW Normal [facility] Comment on above: Result Comment: ADA RECOMMENDED LIMIT 4.0 - 6.0 ADA THERAPEUTIC TARGET < 7.0 ACTION SUGGESTED > 7.0 Performed By: #### A 1C #### [facility] [address] [address] [address] Juan Pablo Kaminski Glucose [Mass/Vol] 128 mg/dL Normal [facility] Comment on above: Performed By: #### A 1C #### [facility] [address] [address] [address] Juan Pablo Kaminski HbA1c (Bld) [Mass fraction] 6.1 % Normal 4.5-6.2 [facility] Comment on above: Performed By: #### A 1C #### [facility] [address] [address] [address] Juan Pablo Kaminski A1C with Estimated Average G luon 03-20-2022 A1C with Estimated Average Glu 128 [facility] [employer] Other A1C with Estimated Average Glu [facility] [facility] [employer] Other HbA1c (Bld) [Mass fraction] 6.1 % Normal 4.5-6.2 [facility] [employer] Other Comment on above: Performed By: #### A 1C #### [facility] [address] [address] [address] Juan Pablo Kaminski GLYCOHEMOGLOBIN A1Con 2022 ADA RECOMMENDATION SEE BELOW Normal [facility] Comment on above: Result Comment: ADA RECOMMENDED LIMIT 4.0 - 6.0 ADA THERAPEUTIC TARGET < 7.0 ACTION SUGGESTED > 7.0 Performed By: #### A 1C #### [facility] [address] [place], [place] [address] Dr. Juan Pablo Kaminski Glucose [Mass/Vol] 128 mg/dL Normal [facility] Comment on above: Performed By: #### A 1C #### [facility] [address] [place], [place] [address] Dr. Juan Pablo Kaminski US SCROTUM W [...] by: LEIDY PEREIRA Date: 2021-12-25 18:32 Normal [facility] Urine culture routineOrdered By: Sam Simons on 12-19-2021 Bacteria identified Cx Nom (U) Pseudomonas aeruginosa [facility] Automated erythrocytes count in urine sediment (number/area)Ordered By: Sam Simons on 12-17-2021 RBC Auto (Urine sed) [#/Area] 1-2 [HPF] 0-4 [facility] Automated leukocytes count i n urine sediment (number/area)Ordered By: Sam Simons on 12-17-2021 WBC Auto (Urine sed) [#/Area] 20-49 [HPF] 0-4 [facility] Bilirubin Test strip Ql (U)O rdered By: Sam Simons on 12-17-2021 Bilirubin Ql (U) Negative Negative [facility] Color Auto (U)Ordered By: Micheal Simons on 12-17-2021 Color (U) Yellow Yellow [facility] Ketones Auto test strip (U) [Mass/Vol]Ordered By: Sam Simons on 12-17-2021 Ketones (U) [Mass/Vol] Negative Negative [facility] - UrinalysisOrder ed By: Sam Simons on 12-17-2021 Hyaline casts LM Ql (Urine sed) 0-8 [LPF] 0-8 [facility] Nitrite Test strip Ql (U)Ord ered By: Sam Simons on 12-17-2021 Nitrite Ql (U) Negative Negative [facility] Protein Auto test strip (U) [Mass/Vol]Ordered By: Sam Simons on 12-17-2021 Protein (U) [Mass/Vol] Negative Negative [facility] Specific gravity Auto test s trip (U) [Rel density]Ordered By: Sam Simons on 12-17-2021 Specific gravity (U) [Rel density] 1.016 1.001-1.030 [facility] Squamous epithelial cells de tection in urine sediment by light microscopyOrdered By: Sam Simons on 12-17-2021 Epithelial cells.squamous LM Ql (Urine sed) 0-1 [HPF] 0-2 [facility] Urine bacteria detection by automated methodOrdered By: Sam Simons on 12-17-2021 Bacteria Auto Ql (U) None seen None Seen [facility] Urine clarity by refractomet ry automatedOrdered By: Sam Simons on 12-17-2021 Clarity Refractometry automated (U) Clear Clear [facility] Urine glucose measurement by automated test strip (mass/volume)Ordered By: Sam Simons on 12-17-2021 Glucose Auto test strip (U) [Mass/Vol] Normal mg/dL Normal [facility] Urine hemoglobin detection b y automated test stripOrdered By: Sam Simons on 12-17-2021 Hemoglobin Auto test strip Ql (U) Negative Negative [facility] Urine leukocyte esterase det ection by automated test stripOrdered By: Sam Simons on 12-17-2021 Leukocyte esterase Auto test strip Ql (U) 4+ Negative [facility] Urobilinogen Auto test strip (U) [Mass/Vol]Ordered By: Sam Simons on 12-17-2021 Urobilinogen (U) [Mass/Vol] Normal mg/dL Normal [facility] pH Auto test strip (U)Ordere d By: Sam Simons on 12-17-2021 pH (U) 6.0 [pH] 5.0-9.0 [facility] Urine culture routineOrdered By: Davis Cervantes on 12-13-2021 Bacteria identified Cx Nom (U) No Growth [address] [facility] Automated erythrocytes count in urine sediment (number/area)Ordered By: Davis Cervantes on 12-11-2021 RBC Auto (Urine sed) [#/Area] 20-49 [HPF] 0-4 [facility] Automated leukocytes count i n urine sediment (number/area)Ordered By: Davis Cervantes on 12-11-2021 WBC Auto (Urine sed) [#/Area] 10-19 [HPF] 0-4 [facility] Basophils Auto (Bld) [#/Vol] Ordered By: Davis Cervantes on 12-11-2021 Basophils (Bld) [#/Vol] 0.1 10*3/uL 0.0-0.2 [facility] Basophils/100 WBC Auto (Bld) Ordered By: Davis Cervantes on 12-11-2021 Basophils/100 WBC (Bld) 1.2 % . [facility] Bilirubin Test strip Ql (U)O rdered By: Davis Cervantes on 12-11-2021 Bilirubin Ql (U) Negative Negative [facility] Blood hemoglobin measurement (mass/volume)Ordered By: Davis Cervantes on 12-11-2021 Hemoglobin (Bld) [Mass/Vol] 13.3 g/dL 13.0-17.0 [facility] Blood leukocytes automated c ount (number/volume)Ordered By: Davis Cervantes on 12-11-2021 WBC (Bld) [#/Vol] 8.2 10*3/uL 4.5-11.0 [facility] Color Auto (U)Ordered By: Mary Cervantes on 12-11-2021 Color (U) Yellow Yellow [facility] Creatinine and Glomerular fi ltration rate.predicted panel (S/P/Bld)Ordered By: Davis Cervantes on 12-11-2021 Creatinine [Mass/Vol] 1.16 mg/dL 0.64-1.27 [facility] Eosinophils Auto (Bld) [#/Vo l]Ordered By: Davis Cervantes on 12-11-2021 Eosinophils (Bld) [#/Vol] 0.2 10*3/uL 0.0-0.45 [facility] Eosinophils/100 WBC Auto (Bl d)Ordered By: Davis Cervantes on 12-11-2021 Eosinophils/100 WBC (Bld) 2.9 % . [facility] Erythrocyte distribution wid th Auto (RBC) [Ratio]Ordered By: Davis Cervantes on 12-11-2021 Erythrocyte distribution width (RBC) [Ratio] 11.8 % 12.0-14.8 [facility] Estimated glomerular filtrat ion rate (GFR) non- AmericanOrdered By: Davis Cervantes on 12-11-2021 GFR/1.73 sq M.predicted among non-blacks MDRD (S/P/Bld) [Vol rate/Area] 60 mL/Min [facility] Hematocrit Auto (Bld) [Volum e fraction]Ordered By: Davis Cervantes on 12-11-2021 Hematocrit (Bld) [Volume fraction] 39.6 % 38.8-50.0 [facility] Ketones Auto test strip (U) [Mass/Vol]Ordered By: Davis Cervantes on 12-11-2021 Ketones (U) [Mass/Vol] Negative Negative [facility] - Hematology and Cell countsOrdered By: Davis Cervantes on 12-11-2021 Nucleated RBC/100 WBC (Bld) [Ratio] 0.0 % 0-0.5 [facility] - UrinalysisOrder ed By: Davis Cervantes on 12-11-2021 Hyaline casts LM Ql (Urine sed) 0-8 [LPF] 0-8 [facility] Lymphocytes Auto (Bld) [#/Vo l]Ordered By: Davis Cervantes on 12-11-2021 Lymphocytes (Bld) [#/Vol] 1.9 10*3/uL 1.00-4.8 [facility] Lymphocytes/100 WBC Auto (Bl d)Ordered By: Davis Cervantes on 12-11-2021 Lymphocytes/100 WBC (Bld) 23.3 % . [facility] MCH Auto (RBC) [Entitic mass ]Ordered By: Davis Cervantes on 12-11-2021 MCH (RBC) [Entitic mass] 32.0 pg 27.5-35.2 [facility] MCHC Auto (RBC) [Mass/Vol]Or dered By: Davis Cervantes on 12-11-2021 MCHC (RBC) [Mass/Vol] 33.6 g/dL 32.5-35.6 [facility] MCV Auto (RBC) [Entitic vol] Ordered By: Davis Cervantes on 12-11-2021 MCV (RBC) [Entitic vol] 95.1 fL 83.5-101 [facility] Monocytes Auto (Bld) [#/Vol] Ordered By: Davis Cervantes on 12-11-2021 Monocytes (Bld) [#/Vol] 1.1 10*3/uL 0.0-0.8 [facility] Monocytes/100 WBC Auto (Bld) Ordered By: Davis Cervantes on 12-11-2021 Monocytes/100 WBC (Bld) 13.6 % . [facility] Neutrophils Auto (Bld) [#/Vo l]Ordered By: Davis Cervantes on 12-11-2021 Neutrophils (Bld) [#/Vol] 4.8 10*3/uL 1.8-7.7 [facility] Neutrophils/100 WBC Auto (Bl d)Ordered By: Davis Cervantes on 12-11-2021 Neutrophils/100 WBC (Bld) 59.0 % . [facility] Nitrite Test strip Ql (U)Ord ered By: Davis Cervantes on 12-11-2021 Nitrite Ql (U) Negative Negative [facility] No Panel InformationOrdered By: Davis Cervantes on 12-11-2021 Estimated GFR () > 60 mL/Min [facility] Comment on above: GFR estimated refere nce range: According to KDOQI guidelines, <60 ml/min/1.73m2 is sufficient to diagnose a patient with chronic kidney disease. Pharmacy Creatinine Clearance (Chem 57.67 [facility] Platelet mean volume Auto (B ld) [Entitic vol]Ordered By: Davis Cervantes on 12-11-2021 Platelet mean volume (Bld) [Entitic vol] 7.0 fL 6.6-10.1 [facility] Platelets Auto (Bld) [#/Vol] Ordered By: Davis Cervantes on 12-11-2021 Platelets (Bld) [#/Vol] 266 10*3/uL 150-450 [facility] Protein Auto test strip (U) [Mass/Vol]Ordered By: Davis Cervantes on 12-11-2021 Protein (U) [Mass/Vol] Negative Negative [facility] RBC Auto (Bld) [#/Vol]Ordere d By: Davis Cervantes on 12-11-2021 RBC (Bld) [#/Vol] 4.17 10*6/uL 3.90-5.60 [facility] Serum or plasma anion gap de terminationOrdered By: Davis Cervantes on 12-11-2021 Anion gap [Moles/Vol] 12.2 mmol/L 6.0-15.0 [facility] Serum or plasma calcium maggy urement (mass/volume)Ordered By: Davis Cervantes on 12-11-2021 Calcium [Mass/Vol] 9.0 mg/dL 8.2-10.2 [facility] Serum or plasma chloride duran surement (moles/volume)Ordered By: Davis Cervantes on 12-11-2021 Chloride [Moles/Vol] 96 mmol/L 95-114 [facility] Serum or plasma glucose maggy urement (mass/volume)Ordered By: Davis Cervantes on 12-11-2021 Glucose [Mass/Vol] 131 mg/dL 70-100 [facility] Comment on above: ADA recommended refe rence rangeRandom Glucose Reference Range is dependent on time and content of last meal. Glucose of more than 200 mg/dL in a nonstressed, ambulatory subject supports the diagnosis of Diabetes Mellitus. Serum or plasma potassium me asurement (moles/volume)Ordered By: Davis Cervantes on 12-11-2021 Potassium [Moles/Vol] 4.5 mmol/L 3.5-5.1 [facility] Serum or plasma sodium measu rement (moles/volume)Ordered By: Davis Cervantes on 12-11-2021 Sodium [Moles/Vol] 131 mmol/L 136-146 [facility] Serum or plasma total carbon dioxide measurement (moles/volume)Ordered By: Davis Cervantes on 12-11-2021 CO2 [Moles/Vol] 27.3 mmol/L 22.0-30.0 [facility] Serum or plasma urea nitroge n measurement (mass/volume)Ordered By: Davis Cervantes on 12-11-2021 Urea nitrogen [Mass/Vol] 20 mg/dL 9-23 [facility] Specific gravity Auto test s trip (U) [Rel density]Ordered By: Davis Cervantes on 12-11-2021 Specific gravity (U) [Rel density] 1.014 1.001-1.030 [facility] Squamous epithelial cells de tection in urine sediment by light microscopyOrdered By: Davis Cervantes on 12-11-2021 Epithelial cells.squamous LM Ql (Urine sed) 0-1 [HPF] 0-2 [facility] Urine bacteria detection by automated methodOrdered By: Davis Cervantes on 12-11-2021 Bacteria Auto Ql (U) None seen None Seen [facility] Urine clarity by refractomet ry automatedOrdered By: Davis Cervantes on 12-11-2021 Clarity Refractometry automated (U) Clear Clear [facility] Urine glucose measurement by automated test strip (mass/volume)Ordered By: Davis Cervantes on 12-11-2021 Glucose Auto test strip (U) [Mass/Vol] Normal mg/dL Normal [facility] Urine hemoglobin detection b y automated test stripOrdered By: Davis Cervantes on 12-11-2021 Hemoglobin Auto test strip Ql (U) 2+ Negative [facility] Urine leukocyte esterase det ection by automated test stripOrdered By: Davis Cervantes on 12-11-2021 Leukocyte esterase Auto test strip Ql (U) 2+ Negative [facility] Urobilinogen Auto test strip (U) [Mass/Vol]Ordered By: Davis Cervantes on 12-11-2021 Urobilinogen (U) [Mass/Vol] Normal mg/dL Normal [facility] pH Auto test strip (U)Ordere d By: Davis Cervantes on 12-11-2021 pH (U) 5.5 [pH] 5.0-9.0 [facility] ED NOTEon 11-27-2021 ED NOTE HNO ID: [id number] Author: Alyx Vergara RN Service: Nursing Author Type: Registered Nurse Type: ED Notes Filed: 11/26/2021 10:21 PM Note Text: Discharge instructions and follow up appointments reviewed. Pt verbalized understanding and states no concerns or questions at this time. VSS. Spoke with Asha about elevated BP. Stated that it's okay for pt to go and have him f/u with his PCP. Normal [facility] ED NOTE HNO ID: [id number] Author: Alyx Vergara RN Service: Nursing Author Type: Registered Nurse Type: ED Notes Filed: 11/26/2021 10:10 PM Note Text: Replaced smith bag with leg bag. Normal [facility] Bacteria Ur Culton 2 Bacteria identified Cx Nom (U) [id number] Abnormal [facility] Comment on above: Order Comment: Speci men Type: URINE SPECIMEN Ordering Facility: [facility] Address: [address] [place] [address] Result Comment: >=10 0,000 CFU/ml Klebsiella oxytoca Performed By: #### 6 30-4, 02268-5 #### [facility] CLIA [id number] [address] [place] [address] [place] [address] [place] Bacterial susceptibility maldonado el (Isol)on 11-26-2021 Ampicillin [Susc] Resistant [facility] Comment on above: Order Comment: Order ing Facility: [facility] Address: [address] [place], [place] [address] Performed By: #### 6 30-4, 14990-9 #### [facility] CLIA [id number] [address] [place] [address] Ampicillin+Sulbactam [Susc] 4 Susceptible Susceptible <=8 , Intermediate >8 , Resistant >16 [facility] Comment on above: Order Comment: Order ing Facility: [facility] Address: [address] [place], [place] [address] Performed By: #### 6 30-4, 00939-5 #### [facility] CLIA [id number] [address] [place] [address] [place] ceFAZolin [Susc] <=4 Susceptible Susceptible 0-16 , Intermediate <0 or >16 , Resistant >16 [facility] Comment on above: Order Comment: Order ing Facility: [facility] Address: [address] [place], [place] [address] Performed By: #### 6 30-4, 75344-4 #### [facility] CLIA [id number] [address] [place] [address] STATES [facility] Cefepime [Susc] <=1 Susceptible Susceptible <=2 , Intermediate >2 , Resistant >=16 [facility] Comment on above: Order Comment: Order ing Facility: [facility] Address: [address] [place], [place] [address] Performed By: #### 6 30-4, 29369-9 #### [facility] CLIA [id number] [address] [place] [address] [place] cefTRIAXone [Susc] <=1 Susceptible Susceptib le <=1 , Intermediate >1 , Resistant >=4 [facility] Comment on above: Order Comment: Order ing Facility: [facility] Address: [address] [place], [place] [address] Performed By: #### 6 30-4, 17918-2 #### [facility] CLIA [id number] [address] [place] [address] [place] Ciprofloxacin [Susc] <=0.25 Susceptible Suscept ible <0.5 , Intermediate >=.5 , Resistant >=1 [facility] Comment on above: Order Comment: Order ing Facility: [facility] Address: [address] [place], [place] [address] Performed By: #### 6 30-4, 84295-9 #### [facility] CLIA [id number] [address] [place] [address] [place] Ertapenem ROCIO [Susc] <=0.5 Susceptible Suscept ible <=0.5 , Intermediate >.5 , Resistant >1 [facility] Comment on above: Order Comment: Order ing Facility: [facility] Address: [address] [place], [place] [address] Performed By: #### 6 30-4, 89188-4 #### [facility] CLIA [id number] [address] [place] [address] [place] Gentamicin [Susc] <=1 Susceptible Susceptibl e <=4 , Intermediate >4 , Resistant >8 [facility] Comment on above: Order Comment: Order ing Facility: [facility] Address: [address] [place], [place] [address] Performed By: #### 6 30-4, 17266-8 #### [facility] CLIA [id number] [address] [place] [address] [place] Meropenem [Susc] <=0.25 Susceptible Susceptible <=1 , Intermediate >1 , Resistant >2 [facility] Comment on above: Order Comment: Order ing Facility: [facility] Address: [address] Performed By: #### 6 30-4, 67887-8 #### [facility] CLIA [id number] [address] Nitrofurantoin [Susc] 32 Susceptible Suscep tible <=32 , Intermediate >32 , Resistant >64 [facility] Comment on above: Order Comment: Order ing Facility: [facility] Address: [address] [place] [address] Performed By: #### 6 30-4, 10226-7 #### [facility] CLIA [id number] [address] [place] [address] Piperacillin+Sulbactam ROCIO [Susc] <=4 Susceptible Susceptible <=16 , Intermediate >16 , Resistant >64 [facility] Comment on above: Order Comment: Order ing Facility: [facility] Address: [address] [place] [address] Performed By: #### 6 30-4, 42722-6 #### [facility] CLIA [id number] [address] [place] [address] Tobramycin [Susc] <=1 Susceptible Susceptibl e <=4 , Intermediate >4 , Resistant >8 [facility] Comment on above: Order Comment: Order ing Facility: [facility] Address: [address] [place] [address] Performed By: #### 6 30-4, 55309-7 #### [facility] CLIA [id number] [address] [place] [address] Trimethoprim+Sulfametho xazole [Susc] <=20 Susceptible Susceptible <=40 , Resistant >40 [facility] Comment on above: Order Comment: Order ing Facility: [facility] Address: [address] [place] [address] Performed By: #### 6 30-4, 94246-4 #### [facility] CLIA [id number] [address] [place] [address] [place] ED NOTEon 11-26-2021 ED NOTE HNO ID: [id number] Author: Alyx Vergara RN Service: Nursing Author Type: Registered Nurse Type: ED Notes Filed: 11/26/2021 9:20 PM Note Text: Replaced smith per Asha BARR. [facility] ED NOTE HNO ID: [id number] Author: Alyx Vergara RN Service: Nursing Author Type: Registered Nurse Type: ED Notes Filed: 11/26/2021 9:01 PM Note Text: Was instructed to bladder scan pt due to pt having no urine in replaced bag. Bladder scanned 261 mL's the first time. Then 214 mL's the second time. Made Asha ESQUIVEL) aware. [facility] ED NOTE HNO ID: [id number] Author: Alyx Vergara RN Service: Nursing Author Type: Registered Nurse Type: ED Notes Filed: 11/26/2021 9:49 PM Note Text: Flushed 20 mL Smith. No leaking noted around tube. [facility] ED PROV NOTEon 11-26-2021 ED PROV NOTE HNO ID: [id number] Author: Asha Clinton PA-C Service: ? Author Type: Physician Field Logistics Coordinator Type: ED Provider Notes Filed: 11/26/2021 [...] placed 11/12 presenting with decreased flow from Smiht catheter this evening and leakage around the [...] culture. Previous and only urine culture in [facility] on 11/07 had no growth. Given dose of Keflex. Prescription for this E scripted to pharmacy. Patient discharged with Smith in place, leg bag instructions. Elevated blood pressure noted and improved during stay. No CP, sob, dizziness or any other complaints. Recommend f/u with pcp for recheck. All questions and concerns addre (more content not included)... Normal [facility] Urinalysis complete panel (U )on 11-26-2021 Bacteria LM.HPF (Urine sed) [#/Area] Many Abnormal None Seen [facility] Comment on above: Order Comment: Speci men Type: URINE SPECIMEN Ordering Facility: [facility] Address: [address] [place], [place] [phone] Performed By: #### 6 30-4, 33915-7 #### [facility] CLIA [id number] [address] [place] [address] [place] [address] [place] Bilirubin Ql (U) Negative Normal Negative [facility] Comment on above: Order Comment: Speci men Type: URINE SPECIMEN Ordering Facility: [facility] Address: [address] [place], [place] [phone] Performed By: #### 6 30-4, 59010-6 #### [facility] CLIA [id number] [address] [place] [address] [place] Clarity (Unsp spec) Cloudy Abnormal Clear [facility] Comment on above: Order Comment: Speci men Type: URINE SPECIMEN Ordering Facility: [facility] Address: [address] [place] [address] Performed By: #### 6 30-4, 91219-1 #### [facility] CLIA [id number] [address] [place] [address] [place] Color (U) Yellow Normal Yellow [facility] Comment on above: Order Comment: Speci men Type: URINE SPECIMEN Ordering Facility: [facility] Address: [address] [place] [address] Performed By: #### 6 30-4, 17537-2 #### [facility] CLIA [id number] [address] [place] [address] [place] Epithelial cells LM.HPF (Urine sed) [#/Area] Few Normal [facility] Comment on above: Order Comment: Speci men Type: URINE SPECIMEN Ordering Facility: [facility] Address: [address] [place] [address] Performed By: #### 6 30-4, 51925-9 #### [facility] CLIA [id number] [address] [place] [address] [place] Glucose Test strip (U) [Mass/Vol] Negative Normal Negative [facility] Comment on above: Order Comment: Speci men Type: URINE SPECIMEN Ordering Facility: [facility] Address: [address] [place], [place] [address] Performed By: #### 6 30-4, 35926-8 #### [facility] CLIA [id number] [address] [place] [address] [place] Hemoglobin Ql (U) 2+ Abnormal Negative [facility] Comment on above: Order Comment: Speci men Type: URINE SPECIMEN Ordering Facility: [facility] Address: [address] [place], [place] [address] Performed By: #### 6 30-4, 74566-5 #### [facility] CLIA [id number] [address] [place] [address] Ketones Ql (U) Negative Normal Negative [facility] Comment on above: Order Comment: Speci men Type: URINE SPECIMEN Ordering Facility: [facility] Address: [address] [place], [place] [address] Performed By: #### 6 30-4, 40985-7 #### [facility] CLIA [id number] [address] [place] [address] [place] Leukocyte esterase Test strip Ql (U) 3+ Abnormal Negative [facility] Comment on above: Order Comment: Speci men Type: URINE SPECIMEN Ordering Facility: [facility] Address: [address] [place] [address] Performed By: #### 6 30-4, 41791-7 #### [facility] CLIA [id number] [address] [place] [address] [place] Nitrite Ql (U) Positive Abnormal Negative [facility] Comment on above: Order Comment: Speci men Type: URINE SPECIMEN Ordering Facility: [facility] Address: [address] [place], [place] [address] Performed By: #### 6 30-4, 86815-5 #### [facility] CLIA [id number] [address] [place] [address] [place] pH (U) 5.5 [pH] Normal 5.0-8.0 [facility] Comment on above: Order Comment: Speci men Type: URINE SPECIMEN Ordering Facility: [facility] Address: [address] [place], [place] [address] Performed By: #### 6 30-4, 50131-7 #### [facility] CLIA [id number] [address] [place] [address] [place] Protein (U) [Mass/Vol] Normal [facility] Comment on above: Order Comment: Speci men Type: URINE SPECIMEN Ordering Facility: [facility] Address: [address] [place] [address] Result Comment: Visi ble blood causes falsely elevated results for analyte Protein. Due to this limitation, Protein will not be reported for patients whose urine contains visible blood. Performed By: #### 6 30-4, 90341-4 #### [facility] CLIA [id number] [address] [place] [address] [place] RBC LM.HPF (Urine sed) [#/Area] 6-10 /HPF Abnormal 0-3 /HPF [facility] Comment on above: Order Comment: Speci men Type: URINE SPECIMEN Ordering Facility: [facility] Address: [address] [place] [address] Performed By: #### 6 30-4, 30596-8 #### [facility] CLIA [id number] [address] [place] [address] [place] Specific gravity (U) [Rel density] 1.009 Normal 1.005-1.030 [facility] Comment on above: Order Comment: Speci men Type: URINE SPECIMEN Ordering Facility: [facility] Address: [address] [place] [address] Performed By: #### 6 30-4, 36158-5 #### [facility] CLIA [id number] [address] [place] [address] [place] Urobilinogen Ql (U) 0.2 EU/dL Normal 0.2-1.0 EU/dL [facility] Comment on above: Order Comment: Speci men Type: URINE SPECIMEN Ordering Facility: [facility] Address: [address] [place] [address] Performed By: #### 6 30-4, 70135-6 #### [facility] CLIA [id number] [address] [place] [address] [place] WBC LM.HPF (Urine sed) [#/Area] 11-25 /HPF Abnormal 0-5 /HPF [facility] Comment on above: Order Comment: Speci men Type: URINE SPECIMEN Ordering Facility: [facility] Address: [address] [place] [phone] Performed By: #### 6 30-4, 07498-5 #### [facility] CLIA [id number] [address] [place] [address] [place] Covid-19 PCR (CVDTB)on [...] for this test is supported by the Service Station Manager of Health and Human Service's (HHS's) declaration [...] SARS-CoV-2. Performed By: #### C VDTBH #### [facility] [address] [place] [address] Dr. Juan Pablo Kaminski Bacteria Ur Culton 2 Bacteria identified Cx Nom (U) No growth (<1,000 CFU/ml) Normal [facility] Comment on above: Order Comment: Speci men Type: URINE SPECIMEN Ordering Facility: [facility] Address: [address] [place] [phone] Performed By: #### 6 30-4 #### [facility] CLIA [id number] [address] [place] [address] [place] Basic metabolic 2000 panelon 11-07-2021 Anion gap [Moles/Vol] 10 mmol/L Normal 9-18 [facility] Comment on above: Order Comment: Speci men Type: URINE SPECIMEN Ordering Facility: [facility] Address: [address] [place], [place] [address] Performed By: #### 6 30-4, 32643-9 #### [facility] CLIA [id number] [address] [place] [address] [place] Calcium [Mass/Vol] 9.1 mg/dL Normal 8.5-10.2 [facility] Comment on above: Order Comment: Speci men Type: URINE SPECIMEN Ordering Facility: [facility] Address: [address] [place], [place] [address] Performed By: #### 6 30-4, 94120-8 #### [facility] CLIA [id number] [address] [place] [address] [place] Chloride [Moles/Vol] 95 mmol/L Low 97-105 [facility] Comment on above: Order Comment: Speci men Type: URINE SPECIMEN Ordering Facility: [facility] Address: [address] [place] [address] Performed By: #### 6 30-4, 52738-4 #### [facility] CLIA [id number] [address] [place] [address] [place] CO2 [Moles/Vol] 25 mmol/L Normal 22-30 [facility] Comment on above: Order Comment: Speci men Type: URINE SPECIMEN Ordering Facility: [facility] Address: [address] [place], [place] [address] Performed By: #### 6 30-4, 71774-0 #### [facility] CLIA [id number] [address] [place] [address] [place] Creatinine [Mass/Vol] 1.25 mg/dL High 0.73-1.22 [facility] Comment on above: Order Comment: Domonique garcia Type: URINE SPECIMEN Ordering Facility: [facility] Address: [address] [place] [address] Performed By: #### 6 30-4, 86032-1 #### [facility] CLIA [id number] [address] [place] [address] [place] ESTIMATED GLOMERULAR FILTRATION RATE 57 mL/min/1.73m??? Low >=60 [facility] Comment on above: Order Comment: Domonique garcia Type: URINE SPECIMEN Ordering Facility: [facility] Address: [address] [place] [address] Result Comment: Annalise mated Glomerular Filtration Rate [...] actual GFR. Performed By: #### 6 30-4, 84073-0 #### [facility] CLIA [id number] [address] [place] [address] [place] Glucose [Mass/Vol] 129 mg/dL High 74-99 [facility] Comment on above: Order Comment: Domonique garcia Type: URINE SPECIMEN Ordering Facility: [facility] Address: [address] [place] [address] Result Comment: The [place] [employer] Association (ADA) provides guidance for cutoff [...] Standards of Medical Care in Diabetes 2016, [place] [employer]. Diabetes Care. 2016.39(Suppl 1). Performed By: #### 6 30-4, 06740-2 #### [facility] CLIA [id number] [address] [place] [address] [place] Potassium [Moles/Vol] 4.6 mmol/L Normal 3.7-5.1 [facility] Comment on above: Order Comment: Speci men Type: URINE SPECIMEN Ordering Facility: [facility] Address: [address] [place] [address] Performed By: #### 6 30-4, 91374-2 #### [facility] CLIA [id number] [address] [place] [address] [place] Sodium [Moles/Vol] 130 mmol/L Low 136-144 [facility] Comment on above: Order Comment: Speci men Type: URINE SPECIMEN Ordering Facility: [facility] Address: [address] [place] [address] Performed By: #### 6 30-4, 83419-8 #### [facility] CLIA [id number] [address] [place] [address] [place] Urea nitrogen [Mass/Vol] 23 mg/dL Normal 9-24 [facility] Comment on above: Order Comment: Speci men Type: URINE SPECIMEN Ordering Facility: [facility] Address: [address] [place] [address] Performed By: #### 6 30-4, 32576-4 #### [facility] CLIA [id number] [address] [place] [address] [place] CBC W Auto Differential pane l (Bld)on 11-07-2021 Basophils/100 WBC (Bld) 0.0 % Normal [facility] Comment on above: Order Comment: Speci men Type: URINE SPECIMEN Ordering Facility: [facility] Address: [address] [place], [place] [address] Performed By: #### 6 30-4, 09429-2 #### [facility] CLIA [id number] [address] [place] [address] [place] Differential cell count method Nom (Bld) Manual Normal [facility] Comment on above: Order Comment: Speci men Type: URINE SPECIMEN Ordering Facility: [facility] Address: [address] [place], [place] [address] Performed By: #### 6 30-4, 98345-3 #### [facility] CLIA [id number] [address] [place] [address] [place] Eosinophils (Bld) [#/Vol] 0.10 10*3/uL Normal <0.46 [facility] Comment on above: Order Comment: Speci men Type: URINE SPECIMEN Ordering Facility: [facility] Address: [address] [place], [place] [address] Performed By: #### 6 30-4, 06617-2 #### [facility] CLIA [id number] [address] [place] [address] [place] Eosinophils/100 WBC (Bld) 1.0 % Normal [facility] Comment on above: Order Comment: Speci men Type: URINE SPECIMEN Ordering Facility: [facility] Address: [address] [place], [place] [address] Performed By: #### 6 30-4, 79112-1 #### [facility] CLIA [id number] [address] [place] [address] [place] Erythrocyte distribution width (RBC) [Ratio] 11.5 % Normal 11.5-15.0 [facility] Comment on above: Order Comment: Speci men Type: URINE SPECIMEN Ordering Facility: [facility] Address: [address] [place], [place] [address] Performed By: #### 6 30-4, 79404-8 #### [facility] CLIA [id number] [address] [place] [address] [place] Hematocrit (Bld) [Volume fraction] 39.8 % Normal 39.0-51.0 [facility] Comment on above: Order Comment: Speci men Type: URINE SPECIMEN Ordering Facility: [facility] Address: [address] [place] [address] Performed By: #### 6 30-4, 10667-1 #### [facility] CLIA [id number] [address] [place] [address] [place] Hemoglobin (Bld) [Mass/Vol] 13.4 g/dL Normal 13.0-17.0 [facility] Comment on above: Order Comment: Speci men Type: URINE SPECIMEN Ordering Facility: [facility] Address: [address] [place] [address] Performed By: #### 6 30-4, 54817-2 #### [facility] CLIA [id number] [address] [place] [address] [place] Lymphocytes (Bld) [#/Vol] 1.67 10*3/uL Normal 1.00-4.00 [facility] Comment on above: Order Comment: Speci men Type: URINE SPECIMEN Ordering Facility: [facility] Address: [address] [place] [address] Performed By: #### 6 30-4, 29417-0 #### [facility] CLIA [id number] [address] [place] [address] [place] Lymphocytes/100 WBC (Bld) 17.0 % Normal [facility] Comment on above: Order Comment: Speci men Type: URINE SPECIMEN Ordering Facility: [facility] Address: [address] [place], [place] [address] Performed By: #### 6 30-4, 56847-2 #### [facility] CLIA [id number] [address] [place] [address] [place] MCH (RBC) [Entitic mass] 31.5 pg Normal 26.0-34.0 [facility] Comment on above: Order Comment: Speci men Type: URINE SPECIMEN Ordering Facility: [facility] Address: [address] [place], [place] [address] Performed By: #### 6 30-4, 32628-2 #### [facility] CLIA [id number] [address] [place] [address] [place] MCHC (RBC) [Mass/Vol] 33.7 g/dL Normal 30.5-36.0 [facility] Comment on above: Order Comment: Speci men Type: URINE SPECIMEN Ordering Facility: [facility] Address: [address] [place] [address] Performed By: #### 6 30-4, 96890-4 #### [facility] CLIA [id number] [address] [place] [address] [place] MCV (RBC) [Entitic vol] 93.4 fL Normal 80.0-100.0 [facility] Comment on above: Order Comment: Speci men Type: URINE SPECIMEN Ordering Facility: [facility] Address: [address] [place], [place] [address] Performed By: #### 6 30-4, 27402-8 #### [facility] CLIA [id number] [address] [place] [address] [place] Neutrophils (Bld) [#/Vol] 6.29 10*3/uL Normal 1.45-7.50 [facility] Comment on above: Order Comment: Speci men Type: URINE SPECIMEN Ordering Facility: [facility] Address: [address] [place], [place] [address] Performed By: #### 6 30-4, 60884-6 #### [facility] CLIA [id number] [address] [place] [address] [place] Neutrophils/100 WBC (Bld) 64.0 % Normal [facility] Comment on above: Order Comment: Speci men Type: URINE SPECIMEN Ordering Facility: [facility] Address: [address] [place], [place] [address] Performed By: #### 6 30-4, 40750-8 #### [facility] CLIA [id number] [address] [place] [address] [place] Nucleated RBC/100 WBC (Bld) [Ratio] 0.0 /100 WBC Normal [facility] Comment on above: Order Comment: Speci men Type: URINE SPECIMEN Ordering Facility: [facility] Address: [address] [place], [place] [address] Performed By: #### 6 30-4, 56408-5 #### [facility] CLIA [id number] [address] [place] [address] [place] PLATELET ESTIMATE Adequate Normal [facility] Comment on above: Order Comment: Speci men Type: URINE SPECIMEN Ordering Facility: [facility] Address: [address] [place], [place] [address] Performed By: #### 6 30-4, 19701-7 #### [facility] CLIA [id number] [address] [place] [address] [place] Platelet mean volume (Bld) [Entitic vol] 10.2 fL Normal 9.0-12.7 [facility] Comment on above: Order Comment: Speci men Type: URINE SPECIMEN Ordering Facility: [facility] Address: [address] [place], [place] [address] Performed By: #### 6 30-4, 57589-0 #### [facility] CLIA [id number] [address] [place] [address] [place] Platelets (Bld) [#/Vol] 258 10*3/uL Normal 150-400 [facility] Comment on above: Order Comment: Speci men Type: URINE SPECIMEN Ordering Facility: [facility] Address: [address] [place] [address] Performed By: #### 6 30-4, 19287-3 #### [facility] CLIA [id number] [address] [place] [address] [place] RBC (Bld) [#/Vol] 4.26 10*6/uL Normal 4.20-6.00 [facility] Comment on above: Order Comment: Speci men Type: URINE SPECIMEN Ordering Facility: [facility] Address: [address] [place] [address] Performed By: #### 6 30-4, 01863-7 #### [facility] CLIA [id number] [address] [place] [address] [place] RED CELL MORPH Reviewed: unremarkable Normal [facility] Comment on above: Order Comment: Speci men Type: URINE SPECIMEN Ordering Facility: [facility] Address: [address] [place] [address] Performed By: #### 6 30-4, 62359-3 #### [facility] CLIA [id number] [address] [place] [address] [place] WAM - ABS BASO 0.00 k/uL Normal <0.11 [facility] Comment on above: Order Comment: Speci men Type: URINE SPECIMEN Ordering Facility: [facility] Address: [address] [place] [address] Performed By: #### 6 30-4, 19693-2 #### [facility] CLIA [id number] [address] [place] [address] [place] WAM - ABS MONO 1.77 k/uL High <0.87 [facility] Comment on above: Order Comment: Speci men Type: URINE SPECIMEN Ordering Facility: [facility] Address: [address] [place], [place] [address] Performed By: #### 6 30-4, 46640-5 #### [facility] CLIA [id number] [address] [place] [address] [place] WAM - MONO% 18.0 % Normal [facility] Comment on above: Order Comment: Speci men Type: URINE SPECIMEN Ordering Facility: [facility] Address: [address] [place], [place] [address] Performed By: #### 6 30-4, 47428-6 #### [facility] CLIA [id number] [address] [place] [address] [place] WAM ABSOLUTE NRBC <0.01 Normal <0.01 [facility] Comment on above: Order Comment: Speci men Type: URINE SPECIMEN Ordering Facility: [facility] Address: [address] [place] [address] Performed By: #### 6 30-4, 28264-2 #### [facility] CLIA [id number] [address] [place] [address] [place] WBC (Bld) [#/Vol] 9.83 10*3/uL Normal 3.70-11.00 [facility] Comment on above: Order Comment: Speci men Type: URINE SPECIMEN Ordering Facility: [facility] Address: [address] [place] [address] Performed By: #### 6 30-4, 03226-7 #### [facility] CLIA [id number] [address] [place] [address] [place] ED NOTEon 11-07-2021 ED NOTE HNO ID: [id number] Author: Yoshi Schumacher RN Service: ? Author Type: Registered Nurse Type: ED Notes Filed: 11/07/2021 5:14 PM Note Text: Pt provided with discharged instructions. Medications gone over and all questions answered. Pt. Left with steady gait with friend for a ride. Normal [facility] ED NOTE HNO ID: [id number] Author: Flaquita Donnelly RN Service: ? Author Type: Registered Nurse Type: ED Notes Filed: 11/07/2021 1:24 PM Note Text: Pt to ED for urinary retention. Pt had appointment with Urology on Wednesday, but was not able to be seen. Pt denies pain, but reports pressure in the bladder. Pt states he is not able to urinate completely and reports dribbling. Normal [facility] ED PROV NOTEon 11-07-2021 ED PROV NOTE HNO ID: [id number] Author: Keely Sanchez DO Service: Emergency Medicine [...] this Wednesday with his urologist out of [place] but was notified that his urologist had [...] Abnormal; Notable for the following components: Abs [place] 1.77 (*) <0.87 k/uL All other components [...] cysts one of which is mildly complex. Corporate Development Manager: PSCB Transcribe Date/Time: Nov 07 2021 2:57P [...] at th (more content not included)... Normal [facility] US KIDNEY/BLADDERon 11-08-19 US KIDNEY/BLADDER * * *Final Report* * * DATE OF EXAM: Nov 07 2021 2:52PM [facility] 1055 - US KIDNEY/BLADDER / [...] cysts one of which is mildly complex. Corporate Development Manager: LIANA Transcribe Date/Time: Nov 07 2021 2:57P Dictated by : NEHEMIAS COLBERT MD This examination was interpreted and the report reviewed and electronically signed by: NEHEMIAS COLBERT MD on Nov 07 2021 3:09PM EST [id number] Normal [facility] Urinalysis complete panel (U )on 11-07-2021 Bilirubin Ql (U) Negative Normal Negative [facility] Comment on above: Order Comment: Speci men Type: URINE SPECIMEN Ordering Facility: [facility] Address: [address] [place] [address] Performed By: #### 6 30-4, 64850-3 #### [facility] CLIA [id number] [address] [place] [address] [place] [place] Clarity (Unsp spec) Clear Normal Clear [facility] Comment on above: Order Comment: Speci men Type: URINE SPECIMEN Ordering Facility: [facility] Address: [address] [place] [address] Performed By: #### 6 30-4, 40881-2 #### [facility] CLIA [id number] [address] [place] [address] [place] Color (U) Yellow Normal Yellow [facility] Comment on above: Order Comment: Speci men Type: URINE SPECIMEN Ordering Facility: [facility] Address: [address] [place] [address] Performed By: #### 6 30-4, 17648-5 #### [facility] CLIA [id number] [address] [place] [address] [place] Epithelial cells LM.HPF (Urine sed) [#/Area] Few Normal [facility] Comment on above: Order Comment: Speci men Type: URINE SPECIMEN Ordering Facility: [facility] Address: [address] [place], [place] [id number] Performed By: #### 6 30-4, 31749-4 #### [facility] CLIA [id number] [address] [place] [address] [place] Glucose Test strip (U) [Mass/Vol] Negative Normal Negative [facility] Comment on above: Order Comment: Speci men Type: URINE SPECIMEN Ordering Facility: [facility] Address: [address] [place], [place] [id number] Performed By: #### 6 30-4, 98394-4 #### [facility] CLIA [id number] [address] [place] [address] [place] Hemoglobin Ql (U) Negative Normal Negative [facility] Comment on above: Order Comment: Speci men Type: URINE SPECIMEN Ordering Facility: [facility] Address: [address] [place] [address] Performed By: #### 6 30-4, 73685-7 #### [facility] CLIA [id number] [address] [place] [address] [place] Hyaline casts (Urine sed) [#/Area] 1-3 /LPF Abnormal 0 /LPF [facility] Comment on above: Order Comment: Speci men Type: URINE SPECIMEN Ordering Facility: [facility] Address: [address] [place] [address] Performed By: #### 6 30-4, 98439-2 #### [facility] CLIA [id number] [address] [place] [address] [place] Ketones Ql (U) Trace Abnormal Negative [facility] Comment on above: Order Comment: Speci men Type: URINE SPECIMEN Ordering Facility: [facility] Address: [address] [place] [address] Performed By: #### 6 30-4, 57397-0 #### [facility] CLIA [id number] [address] [place] [address] [place] Leukocyte esterase Test strip Ql (U) Negative Normal Negative [facility] Comment on above: Order Comment: Speci men Type: URINE SPECIMEN Ordering Facility: [facility] Address: [address] [place] [address] Performed By: #### 6 30-4, 19980-3 #### [facility] CLIA [id number] [address] [place] [address] [place] Nitrite Ql (U) Negative Normal Negative [facility] Comment on above: Order Comment: Speci men Type: URINE SPECIMEN Ordering Facility: [facility] Address: [address] [place] [address] Performed By: #### 6 30-4, 02723-4 #### [facility] CLIA [id number] [address] [place] [address] [place] pH (U) 5.5 [pH] Normal 5.0-8.0 [facility] Comment on above: Order Comment: Speci men Type: URINE SPECIMEN Ordering Facility: [facility] Address: [address] [place] [address] Performed By: #### 6 30-4, 21035-9 #### [facility] CLIA [id number] [address] [place] [address] [place] Protein (U) [Mass/Vol] Negative Normal Negative [facility] Comment on above: Order Comment: Speci men Type: URINE SPECIMEN Ordering Facility: [facility] Address: [address] [place] [address] Performed By: #### 6 30-4, 95084-4 #### [facility] CLIA [id number] [address] [place] [address] [place] RBC LM.HPF (Urine sed) [#/Area] 0-3 /HPF Normal 0-3 /HPF [facility] Comment on above: Order Comment: Speci men Type: URINE SPECIMEN Ordering Facility: [facility] Address: [address] [place] [address] Performed By: #### 6 30-4, 63585-3 #### [facility] CLIA [id number] [address] [place] [address] [place] Specific gravity (U) [Rel density] 1.024 Normal 1.005-1.030 [facility] Comment on above: Order Comment: Speci men Type: URINE SPECIMEN Ordering Facility: [facility] Address: [address] [place] [address] Performed By: #### 6 30-4, 65144-6 #### [facility] CLIA [id number] [address] [place] [address] [place] Urobilinogen Ql (U) 0.2 EU/dL Normal 0.2-1.0 EU/dL [facility] Comment on above: Order Comment: Speci men Type: URINE SPECIMEN Ordering Facility: [facility] Address: [address] [place] [address] Performed By: #### 6 30-4, 61711-4 #### [facility] CLIA [id number] [address] [place] [address] [place] WBC LM.HPF (Urine sed) [#/Area] 0-5 /HPF Normal 0-5 /HPF [facility] Comment on above: Order Comment: Speci men Type: URINE SPECIMEN Ordering Facility: [facility] Address: [address] [place] [address] Performed By: #### 6 30-4, 38060-5 #### [facility] CLIA [id number] [address] [place] [address] [place] MICROALBUMIN URINEon Albumin, Urine 5.6 ug/mL Normal Not Estab. [facility] Comment on above: Performed By: #### M ALBLC #### [facility] [address] [address] [address] Juan Pablo Kaminski US CAROTID ART [...] 10-21-2021 BASO # 0.0 103/ul Normal 0.0-0.1 [facility] Comment on above: Performed By: #### A 1C #### [facility] [address] [place] [address] Dr. Juan Pablo Kaminski Basophils/100 WBC (Bld) 0.5 % Normal 0.2-2.0 [facility] Comment on above: Performed By: #### A 1C #### [facility] [address] [place] [address] Dr. Juan Pablo Kaminski EO # 0.3 103/ul Normal 0.0-0.7 [facility] Comment on above: Performed By: #### A 1C #### [facility] [address] [place] [address] Dr. Juan Pablo Kaminski Eosinophils/100 WBC (Bld) 3.6 % Normal 0.9-7.0 [facility] Comment on above: Performed By: #### A 1C #### [facility] [address] [place] [address] Dr. Juan Pablo Kaminski Erythrocyte distribution width (RBC) [Ratio] 11.1 % Normal 11.0-15.0 [facility] Comment on above: Performed By: #### A 1C #### [facility] [address] [place] [address] Dr. Juan Pablo Kaminski Hematocrit (Bld) [Volume fraction] 41.8 % Critically low 42.0-54.0 [facility] Comment on above: Performed By: #### A 1C #### [facility] [address] [place] [address] Dr. Juan Pablo Kaminski Hemoglobin (Bld) [Mass/Vol] 14.1 g/dL Normal 14.0-18.0 [facility] Comment on above: Performed By: #### A 1C #### [facility] [address] [place] [address] Dr. Juan Pablo Kaminski IG # 0.03 10e3/ul Normal 0.00-0.03 [facility] Comment on above: Performed By: #### A 1C #### [facility] [address] [place] [address] Dr. Juan Pablo Kaminski IG % 0.4 % Normal 0.0-0.5 [facility] Comment on above: Performed By: #### A 1C #### [facility] [address] [place] [address] Dr. Juan Pablo Kaminski LYMPH # 2.2 103/ul Normal 1.2-3.8 [facility] Comment on above: Performed By: #### A 1C #### [facility] [address] [place] [address] Dr. Juan Pablo Kaminski Lymphocytes/100 WBC (Bld) 29.4 % Normal 20.5-60.0 [facility] Comment on above: Performed By: #### A 1C #### [facility] [address] [place] [address] Dr. Juan Pablo Kaminski MANUAL DIFF REQ NO Normal [facility] Comment on above: Performed By: #### A 1C #### [facility] [address] [place] [address] Dr. Juan Pablo Kaminski MCH (RBC) [Entitic mass] 31.8 pg Normal 25.9-34.0 [facility] Comment on above: Performed By: #### A 1C #### [facility] [address] [place] [address] Dr. Juan Pablo Kaminski MCHC (RBC) [Mass/Vol] 33.7 g/dL Normal 29.9-35.2 [facility] Comment on above: Performed By: #### A 1C #### [facility] [address] [place] [address] Dr. Juan Pablo Kaminski MCV (RBC) [Entitic vol] 94.1 fL Critically high 80.0-94 .0 [facility] Comment on above: Performed By: #### A 1C #### [facility] [address] [place] [address] Dr. Juan Pablo Kaminski MONO # 0.9 103/ul Critically high 0.3-0.8 [facility] Comment on above: Performed By: #### A 1C #### [facility] [address] [place] [address] Dr. Juan Pablo Kaminski Monocytes/100 WBC (Bld) 11.7 % Normal 1.7-12.0 [facility] Comment on above: Performed By: #### A 1C #### [facility] [address] [place] [address] Dr. Juan Pablo Kaminski NEUT # 4.0 103/ul Normal 1.4-6.5 [facility] Comment on above: Performed By: #### A 1C #### [facility] [address] [place] [address] Dr. Juan Pablo Kaminski Neutrophils/100 WBC (Bld) 54.4 % Normal 43.0-75.0 [facility] Comment on above: Performed By: #### A 1C #### [facility] [address] [place] [address] Dr. Juan Pablo Kaminski Platelet mean volume (Bld) [Entitic vol] 8.6 fL Critically low 9.5-13.5 [facility] Comment on above: Performed By: #### A 1C #### [facility] [address] [place] [address] Dr. Juan Pablo Kaminski PLT 231 103/ul Normal 150-450 [facility] Comment on above: Performed By: #### A 1C #### [facility] [address] [place] [address] Dr. Juan Pablo Kaminski RBC 4.44 106/ul Critically low 4.70-6.10 [facility] Comment on above: Performed By: #### A 1C #### [facility] [address] [place] [address] Dr. Juan Pablo Kaminski WBC 7.3 103/ul Normal 4.0-11.0 [facility] Comment on above: Performed By: #### A 1C #### [facility] [address] [address] [address] Juan Pablo Kaminski DIRECT LDLon 10-21-2021 Cholesterol in LDL [Mass/Vol] 106 mg/dL Normal [facility] Comment on above: Performed By: #### A LT, BMP, DLDL #### [facility] [address] [address] [address] Juan Pablo Kaminski DLDL NORMAL SEE BELOW Normal [facility] Comment on above: Result Comment: <100 mg/dl OPTIMAL 100 - 129 mg/dl NEAR OR ABOVE OPTIMAL 130 - 159 mg/dl BORDERLINE HIGH 160 - 189 mg/dl HIGH >190 mg/dl VERY HIGH Performed By: #### A LT, BMP, DLDL #### [facility] [address] [address] [address] Juan Pablo Kaminski GLYCOHEMOGLOBIN A1Con 2021 ADA RECOMMENDATION SEE BELOW Normal [facility] Comment on above: Result Comment: ADA RECOMMENDED LIMIT 4.0 - 6.0 ADA THERAPEUTIC TARGET < 7.0 ACTION SUGGESTED > 7.0 Performed By: #### A 1C #### [facility] [address] [address] [address] Juan Pablo Kaminski Glucose [Mass/Vol] 120 mg/dL Normal [facility] Comment on above: Performed By: #### A 1C #### [facility] [address] [address] [address] Juan Pablo Kaminski HbA1c (Bld) [Mass fraction] 5.8 % Normal 4.5-6.2 [facility] Comment on above: Performed By: #### A 1C #### [facility] [address] [address] [address] Juan Pablo Kaminski PROF CHEM 8 (BAS METB)on Anion gap [Moles/Vol] 12.7 mmol/L Normal [facility] Comment on above: Performed By: #### A 1C #### [facility] [address] [address] [address] Juan Pablo Kaminski Calcium [Mass/Vol] 8.7 mg/dL Normal 8.5-10.1 [facility] Comment on above: Performed By: #### A 1C #### [facility] [address] [address] [address] Juan Pablo Kaminski Chloride [Moles/Vol] 98 mmol/L Normal 98-107 [facility] Comment on above: Performed By: #### A 1C #### [facility] [address] [address] [address] Juan Pablo Kaminski CO2 [Moles/Vol] 28.0 mmol/L Normal 21.0-32.0 [facility] Comment on above: Performed By: #### A 1C #### [facility] [address] [address] [address] Juan Pablo Kaminski Creatinine [Mass/Vol] 1.07 mg/dL Normal 0.70-1.30 [facility] Comment on above: Performed By: #### A 1C #### [facility] [address] [place] [address] Dr. Juan Pablo Kaminski EGFR-AF BURMESE >60 Normal >=60 [facility] Comment on above: Performed By: #### A 1C #### [facility] [address] [place] [address] Dr. Juan Pablo Kaminski EGFR-NON AF BURMESE >60 Normal >=60 [facility] Comment on above: Performed By: #### A 1C #### [facility] [address] [place] [address] Dr. Juan Pablo Kaminski Glucose [Mass/Vol] 133 mg/dL Critically high 74-106 [facility] Comment on above: Performed By: #### A 1C #### [facility] [address] [place] [address] Dr. Juan Pablo Kaminski Potassium [Moles/Vol] 4.7 mmol/L Normal 3.5-5.1 [facility] Comment on above: Performed By: #### A 1C #### [facility] [address] [place] [address] Dr. Juan Pablo Kaminski Sodium [Moles/Vol] 134 mmol/L Critically low 136-145 [facility] Comment on above: Performed By: #### A 1C #### [facility] [address] [address] [address] Juan Pablo Kaminski Urea nitrogen [Mass/Vol] 17.0 mg/dL Normal 7.0-18.0 [facility] Comment on above: Performed By: #### A 1C #### [facility] [address] [address] [address] Juan Pablo Kaminski Urea nitrogen/Creatinine [Mass ratio] 15.9 mg/mg Normal [facility] Comment on above: Performed By: #### A 1C #### [facility] [address] [address] [address] Juan Pablo Kaminski SGPTon 10-21-2021 ALT [Catalytic activity/Vol] 31 U/L Normal 16-63 [facility] Comment on above: Performed By: #### A 1C #### [facility] [address] [place] [address] Dr. Juan Pablo Kaminski GLYCOHEMOGLOBIN A1Con 2021 ADA RECOMMENDATION SEE BELOW Normal [facility] Comment on above: Result Comment: ADA RECOMMENDED LIMIT 4.0 - 6.0 ADA THERAPEUTIC TARGET < 7.0 ACTION SUGGESTED > 7.0 Performed By: #### A 1C #### [facility] [address] [address] [address] Juan Pablo Kaminski Glucose [Mass/Vol] 131 mg/dL Normal [facility] Comment on above: Performed By: #### A 1C #### [facility] [address] [place] [address] Dr. Juan Pablo Kaminski HbA1c (Bld) [Mass fraction] 6.2 % Normal 4.5-6.2 [facility] Comment on above: Performed By: #### A 1C #### [facility] [address] [address] [address] Juan Pablo Kaminski Vital Signs Date Time Vital Sign Value Performing Clinician Denis coles 03-14-2024 15:07-0500 Body height 190.5 cm Glanse Work Phone: [facility] 03-14-2024 15:07-0500 Body mass index (BMI) [Ratio] 28 kg/m2 Glanse Work Phone: [facility] 03-14-2024 15:07-0500 Body weight 101.6 kg Campbell Ball DO Work Phone: [facility] 03-14-2024 15:07-0500 Diastolic blood pressure 70 mm[Hg] Campbell Ball DO Work Phone: [facility] 03-14-2024 15:07-0500 Heart rate 75 /min Campbell Ball DO Work Phone: [facility] 03-14-2024 15:07-0500 Respiratory rate 18 /min Campbell Ball DO Work Phone: [facility] 03-14-2024 15:07-0500 SaO2% (BldA) [Mass fraction] 98 % Campbell Ball DO Work Phone: [facility] 03-14-2024 15:07-0500 Systolic blood pressure 154 mm[Hg] Campbell Ball DO Work Phone: [facility] 02-08-2024 08:32-0500 Body mass index (BMI) [Ratio] 28.12 kg/m2 Leticia Rukhsana [employer] Work Phone: [facility] 02-08-2024 08:32-0500 Body weight 102.06 kg Leticia Rukhsana [employer] Work Phone: [facility] 02-08-2024 08:32-0500 Diastolic blood pressure 58 mm[Hg] Leticia Rukhsana [employer]ERK Work Phone: [facility] 02-08-2024 08:32-0500 Heart rate 54 /min Leticia [place] [employer]FORMATION [employer]ERK Work Phone: [facility] 02-08-2024 08:32-0500 Systolic blood pressure 119 mm[Hg] Leticia Rukhsana [employer]ERK Work Phone: [facility] 02-01-2024 13:25-0500 Body height 190.5 cm [facility] 02-01-2024 13:25-0500 Body mass index (BMI) [Ratio] 28.5 kg/m2 [facility] 02-01-2024 13:25-0500 Body weight 103.47 kg [facility] 02-01-2024 13:25-0500 Diastolic blood pressure 74 mm[Hg] [facility] 02-01-2024 13:25-0500 Heart rate 63 /min [facility] 02-01-2024 13:25-0500 Respiratory rate 63 /min [facility] 02-01-2024 13:25-0500 Systolic blood pressure 135 mm[Hg] [facility] 12-28-2023 08:30-0400 Body height 190.5 cm [facility] 12-28-2023 08:30-0400 Body mass index (BMI) [Ratio] 27.8 kg/m2 [facility] 12-28-2023 08:30-0400 Body weight 100.92 kg [facility] 12-28-2023 08:30-0400 Diastolic blood pressure 66 mm[Hg] [facility] 12-28-2023 08:30-0400 Heart rate 71 /min [facility] 12-28-2023 08:30-0400 Respiratory rate 12 /min [facility] 12-28-2023 08:30-0400 Systolic blood pressure 121 mm[Hg] [facility] 09-23-2023 08:35-0400 Body height 190.5 cm DO Campbell Ball Work Phone: [facility] 09-23-2023 08:35-0400 Body mass index (BMI) [Ratio] 27.8 kg/m2 DO Campbell Ball Work Phone: [facility] 09-23-2023 08:35-0400 Body weight 100.86 kg DO Campbell Ball Work Phone: [facility] 09-23-2023 08:35-0400 Diastolic blood pressure 68 mm[Hg] DO Campbell Ball Work Phone: [facility] 09-23-2023 08:35-0400 Heart rate 70 /min DO Campbell Ball Work Phone: [facility] 09-23-2023 08:35-0400 Respiratory rate 12 /min DO Campbell Ball Work Phone: [facility] 09-23-2023 08:35-0400 Systolic blood pressure 141 mm[Hg] DO Campbell Ball Work Phone: [facility] 08-04-2023 08:59-0400 Body mass index (BMI) [Ratio] 27.5 kg/m2 Leticia [place] [employer] Work Phone: [facility] 08-04-2023 08:59-0400 Body weight 99.79 kg Leticia [place] [employer]ERK Work Phone: [facility] 08-04-2023 08:59-0400 Diastolic blood pressure 56 mm[Hg] Leticia Rukhsana [employer]ERK Work Phone: [facility] 08-04-2023 08:59-0400 Heart rate 65 /min Leticia [place] [employer]FORMATION [employer]ERK Work Phone: [facility] 08-04-2023 08:59-0400 Systolic blood pressure 130 mm[Hg] Leticia [place] [employer]ERK Work Phone: [facility] 07-09-2023 13:38-0400 Body height 190.5 cm DO Campbell Ball Work Phone: [facility] 07-09-2023 13:38-0400 Body mass index (BMI) [Ratio] 28 kg/m2 DO Campbell Ball Work Phone: [facility] 07-09-2023 13:38-0400 Body weight 101.6 kg DO Campbell Ball Work Phone: [facility] 07-09-2023 13:38-0400 Diastolic blood pressure 60 mm[Hg] DO Campbell Ball Work Phone: [facility] 07-09-2023 13:38-0400 Heart rate 78 /min DO Campbell Ball Work Phone: [facility] 07-09-2023 13:38-0400 Systolic blood pressure 143 mm[Hg] DO Campbell Ball Work Phone: [facility] 06-23-2023 09:16-0400 Body height 190.5 cm DO Campbell Ball Work Phone: [facility] 06-23-2023 09:16-0400 Body mass index (BMI) [Ratio] 28 kg/m2 DO Campbell Ball Work Phone: [facility] 06-23-2023 09:16-0400 Body weight 101.6 kg DO Campbell Ball Work Phone: [facility] 06-23-2023 09:16-0400 Diastolic blood pressure 64 mm[Hg] DO Campbell Ball Work Phone: [facility] 06-23-2023 09:16-0400 Heart rate 69 /min DO Campbell Ball Work Phone: [facility] 06-23-2023 09:16-0400 Respiratory rate 16 /min DO Campbell Ball Work Phone: [facility] 06-23-2023 09:16-0400 Systolic blood pressure 147 mm[Hg] DO Campbell Ball Work Phone: [facility] 05-21-2023 10:53-0500 Body height 190.5 cm DO Campbell Ball Work Phone: [facility] 05-21-2023 10:53-0500 Body mass index (BMI) [Ratio] 27 kg/m2 DO Campbell Ball Work Phone: [facility] 05-21-2023 10:53-0500 Body weight 98.03 kg DO Campbell Ball Work Phone: [facility] 05-21-2023 10:53-0500 Diastolic blood pressure 77 mm[Hg] DO Campbell Ball Work Phone: [facility] 05-21-2023 10:53-0500 Heart rate 76 /min DO Campbell Ball Work Phone: [facility] 05-21-2023 10:53-0500 Respiratory rate 12 /min DO Campbell Ball Work Phone: [facility] 05-21-2023 10:53-0500 Systolic blood pressure 133 mm[Hg] DO Campbell Ball Work Phone: [facility] 05-15-2023 13:10-0500 Body temperature 98.6 [degF] DO Campbell Ball Work Phone: [facility] 05-15-2023 13:10-0500 Diastolic blood pressure 90 mm[Hg] DO Campbell Ball Work Phone: [facility] 05-15-2023 13:10-0500 Heart rate 90 /min DO Campbell Ball Work Phone: [facility] 05-15-2023 13:10-0500 Respiratory rate 18 /min DO Campbell Ball Work Phone: [facility] 05-15-2023 13:10-0500 SaO2% (BldA) [Mass fraction] 97 % DO Campbell Ball Work Phone: [facility] 05-15-2023 13:10-0500 Systolic blood pressure 181 mm[Hg] DO Campbell Ball Work Phone: [facility] 05-15-2023 10:56-0500 Body height 190.5 cm DO Campbell Ball Work Phone: [facility] 05-15-2023 10:56-0500 Body weight 99.9 kg DO Campbell Ball Work Phone: [facility] 04-21-2023 14:30-0500 Body height 190.5 cm Campbell Ball Other [facility] [employer] Other 04-21-2023 14:30-0500 Body mass index (BMI) [Ratio] 28.07 kg/m2 Campbell Ball Other [facility] [employer] Other 04-21-2023 14:30-0500 Body weight 101.88 kg Campbell Ball Other [facility] Other 04-21-2023 14:30-0500 Diastolic blood pressure 68 mm[Hg] Campbell Ball Other [facility] Other 04-21-2023 14:30-0500 Respiratory rate 12 /min Campbell Ball Other [facility] Other 04-21-2023 14:30-0500 Systolic blood pressure 129 mm[Hg] Campbell Ball Other [facility] Other 03-17-2023 10:30-0500 Body height 190.5 cm Campbell Ball Other [facility] Other 03-17-2023 10:30-0500 Body mass index (BMI) [Ratio] 27.55 kg/m2 Campbell Ball Other [facility] Other 03-17-2023 10:30-0500 Body weight 99.97 kg Campbell Ball Other [facility] Other 03-17-2023 10:30-0500 Diastolic blood pressure 67 mm[Hg] Campbell Ball Other [facility] Other 03-17-2023 10:30-0500 Respiratory rate 12 /min Campbell Ball Other [facility] Other 03-17-2023 10:30-0500 Systolic blood pressure 159 mm[Hg] Campbell Ball Other [facility] Other 02-23-2023 09:30-0500 Body height 190.5 cm Campbell Ball Other [facility] Other 02-23-2023 09:30-0500 Body mass index (BMI) [Ratio] 28.02 kg/m2 Campbell Ball Other [facility] Other 02-23-2023 09:30-0500 Body weight 101.7 kg Campbell Ball Other [facility] Other 02-23-2023 09:30-0500 Diastolic blood pressure 78 mm[Hg] Campbell Ball Other [facility] Other 02-23-2023 09:30-0500 Respiratory rate 12 /min Campbell Ball Other [facility] Other 02-23-2023 09:30-0500 Systolic blood pressure 157 mm[Hg] Campbell Ball Other [facility] Other 02-19-2023 10:45-0500 Body height 190.5 cm Campbell Ball Other [facility] Other 02-19-2023 10:45-0500 Body mass index (BMI) [Ratio] 28 kg/m2 Campbell Ball Other [facility] Other 02-19-2023 10:45-0500 Body weight 101.61 kg Campbell Ball Other [facility] Other 02-19-2023 10:45-0500 Diastolic blood pressure 72 mm[Hg] Campbell Ball Other [facility] Other 02-19-2023 10:45-0500 Respiratory rate 12 /min Campbell Ball Other [facility] Other 02-19-2023 10:45-0500 Systolic blood pressure 144 mm[Hg] Campbell Ball Other [facility] Other 02-02-2023 13:37-0500 Body weight 102.06 kg Leticia Milian APRN.[facility] Work Phone: [facility] 02-02-2023 13:37-0500 Diastolic blood pressure 70 mm[Hg] Leticia Rukhsana MEDICAL APPLIANCE MAKER.[employer] INFORMATION CLERK Work Phone: [facility] 02-02-2023 13:37-0500 Heart rate 65 /min Leticia Rukhsana MEDICAL APPLIANCE MAKER.[employer] INFORMATION CLERK Work Phone: [facility] 02-02-2023 13:37-0500 Systolic blood pressure 146 mm[Hg] Leticia Rukhsana MEDICAL APPLIANCE MAKER.[employer] INFORMATION CLERK Work Phone: [facility] 09-22-2022 12:15-0400 Body height 190.5 cm Campbell Ball Other [facility] Other 09-22-2022 12:15-0400 Diastolic blood pressure 82 mm[Hg] Campbell Ball Other [facility] Other 09-22-2022 12:15-0400 Systolic blood pressure 135 mm[Hg] Campbell Ball Other [facility] Other 09-17-2022 09:00-0400 Body height 190.5 cm Campbell Ball Other [facility] Other 09-17-2022 09:00-0400 Body mass index (BMI) [Ratio] 27.57 kg/m2 Campbell Ball Other [facility] Other 09-17-2022 09:00-0400 Body weight 100.06 kg Campbell Ball Other [facility] Other 09-17-2022 09:00-0400 Diastolic blood pressure 62 mm[Hg] Campbell Ball Other [facility] Other 09-17-2022 09:00-0400 Respiratory rate 12 /min Campbell Ball Other [facility] Other 09-17-2022 09:00-0400 Systolic blood pressure 128 mm[Hg] Campbell Ball Other [facility] Other 06-18-2022 10:00-0400 Body height 190.5 cm Campbell Ball Other [facility] Other 06-18-2022 10:00-0400 Body mass index (BMI) [Ratio] 28.02 kg/m2 Campbell Ball Other [facility] Other 06-18-2022 10:00-0400 Body weight 101.7 kg Campbell Ball Other [facility] Other 06-18-2022 10:00-0400 Diastolic blood pressure 62 mm[Hg] Campbell Ball Other [facility] Other 06-18-2022 10:00-0400 Respiratory rate 12 /min Campbell Ball Other [facility] Other 06-18-2022 10:00-0400 Systolic blood pressure 119 mm[Hg] Campbell Ball Other [facility] Other 04-08-2022 12:00-0500 Body height 190.5 cm Campbell Ball Other [facility] Other 04-08-2022 12:00-0500 Body mass index (BMI) [Ratio] 27.82 kg/m2 Campbell Ball Other [facility] Other 04-08-2022 12:00-0500 Body temperature 97.1 [degF] Campbell Ball Other [facility] Other 04-08-2022 12:00-0500 Body weight 100.97 kg Campbell Ball Other [facility] Other 04-08-2022 12:00-0500 Diastolic blood pressure 68 mm[Hg] Campbell Ball Other [facility] Other 04-08-2022 12:00-0500 SaO2% (BldA) [Mass fraction] 97 % Campbell Ball Other [facility] Other 04-08-2022 12:00-0500 Systolic blood pressure 124 mm[Hg] Campbell Ball Other [facility] Other 03-20-2022 10:00-0500 Body height 190.5 cm Campbell Ball Other [facility] Other 03-20-2022 10:00-0500 Body mass index (BMI) [Ratio] 27.95 kg/m2 Campbell Ball Other [facility] Other 03-20-2022 10:00-0500 Body weight 101.42 kg Campbell Ball Other [facility] Other 03-20-2022 10:00-0500 Diastolic blood pressure 60 mm[Hg] Campbell Ball Other [facility] Other 03-20-2022 10:00-0500 Respiratory rate 12 /min Campbell Ball Other [facility] Other 03-20-2022 10:00-0500 Systolic blood pressure 112 mm[Hg] Campbell Ball Other [facility] Other 01-08-2022 08:47-0400 Body weight 97.52 kg Leonard Dugan MD Work Phone: [facility] 01-08-2022 08:47-0400 Diastolic blood pressure 61 mm[Hg] Leonard Dugan MD Work Phone: [facility] 01-08-2022 08:47-0400 Heart rate 72 /min Leonard Dugan MD Work Phone: [facility] 01-08-2022 08:47-0400 Systolic blood pressure 139 mm[Hg] Leonard Dugan MD Work Phone: [facility] 12-26-2021 08:32-0400 Body temperature 98 [degF] DO Campbell Ball Work Phone: [facility] 12-26-2021 08:32-0400 Diastolic blood pressure 62 mm[Hg] DO Campbell Ball Work Phone: [facility] 12-26-2021 08:32-0400 Heart rate 75 /min DO Campbell Ball Work Phone: [facility] 12-26-2021 08:32-0400 Respiratory rate 18 /min DO Campbell Ball Work Phone: [facility] 12-26-2021 08:32-0400 SaO2% (BldA) [Mass fraction] 98 % DO Campbell Ball Work Phone: [facility] 12-26-2021 08:32-0400 Systolic blood pressure 146 mm[Hg] DO Campbell Ball Work Phone: [facility] 12-17-2021 16:22-0400 Body height 190.5 cm DO Campbell Ball Work Phone: [facility] 12-17-2021 16:22-0400 Body weight 97.52 kg DO Campbell Ball Work Phone: [facility] 12-17-2021 16:19-0400 Body temperature 98.4 [degF] DO Campbell Ball Work Phone: [facility] 12-17-2021 16:19-0400 Diastolic blood pressure 63 mm[Hg] DO Campbell Ball Work Phone: [facility] 12-17-2021 16:19-0400 Heart rate 66 /min DO Campbell Ball Work Phone: [facility] 12-17-2021 16:19-0400 Respiratory rate 16 /min DO Campbell Ball Work Phone: [facility] 12-17-2021 16:19-0400 SaO2% (BldA) [Mass fraction] 96 % DO Campbell Ball Work Phone: [facility] 12-17-2021 16:19-0400 Systolic blood pressure 135 mm[Hg] DO Campbell Ball Work Phone: [facility] 12-16-2021 14:41-0400 Diastolic blood pressure 62 mm[Hg] Leonard Dugan MD Work Phone: [facility] 12-16-2021 14:41-0400 Heart rate 69 /min Leonard Dugan MD Work Phone: [facility] 12-16-2021 14:41-0400 Respiratory rate 16 /min Leonard Dugan MD Work Phone: [facility] 12-16-2021 14:41-0400 Systolic blood pressure 141 mm[Hg] Leonard Dugan MD Work Phone: [facility] 12-11-2021 18:25-0400 Body temperature 97.5 [degF] DO Campbell Ball Work Phone: [facility] 12-11-2021 18:25-0400 Diastolic blood pressure 88 mm[Hg] DO Campbell Ball Work Phone: [facility] 12-11-2021 18:25-0400 Heart rate 67 /min DO Campbell Ball Work Phone: [facility] 12-11-2021 18:25-0400 Respiratory rate 20 /min DO Campbell Ball Work Phone: [facility] 12-11-2021 18:25-0400 SaO2% (BldA) [Mass fraction] 99 % DO Campbell Ball Work Phone: [facility] 12-11-2021 18:25-0400 Systolic blood pressure 175 mm[Hg] DO Campbell Ball Work Phone: [facility] 12-11-2021 16:57-0400 Body height 190.5 cm DO Campbell Ball Work Phone: [facility] 12-11-2021 16:57-0400 Body weight 98.5 kg DO Campbell Ball Work Phone: [facility] 12-10-2021 10:50-0400 Body weight 95.25 kg Nurse Emelia Work Phone: [facility] 12-10-2021 10:50-0400 Diastolic blood pressure 80 mm[Hg] Nurse Emelia Work Phone: [facility] 12-10-2021 10:50-0400 Heart rate 59 /min Nurse Emelia Work Phone: [facility] 12-10-2021 10:50-0400 Systolic blood pressure 152 mm[Hg] Nurse Emelia Work Phone: [facility] 12-09-2021 14:27-0400 Body weight 95.25 kg [employer] Isabela Work Phone: [facility] 12-09-2021 14:27-0400 Diastolic blood pressure 68 mm[Hg] [employer] Isabela Work Phone: [facility] 12-09-2021 14:27-0400 Heart rate 70 /min [employer] Isabela Work Phone: [facility] 12-09-2021 14:27-0400 Systolic blood pressure 164 mm[Hg] [employer] Isabela Work Phone: [facility] 11-12-2021 11:23-0400 Body weight 96.16 kg Leonard Dugan MD Work Phone: [facility] 11-12-2021 11:23-0400 Diastolic blood pressure 73 mm[Hg] Leonard Dugan MD Work Phone: [facility] 11-12-2021 11:23-0400 Heart rate 56 /min Leonard Dugan MD Work Phone: [facility] 11-12-2021 11:23-0400 Systolic blood pressure 162 mm[Hg] Leonard Dugan MD Work Phone: [facility] Encounters Encounter Date Encounter Type Care Provider Facility Start: 04-03-2024 End: 04-03-2024 Refill Leticia Milian APRN.[employer] INFORMATION CLERK Work Phone: Urology Comment on above: Refill Request Start: 03-22-2024 End: 03-22-2024 Bamboo flowsheet Sterling Torres DO Work Phone: [facility] Start: 03-22-2024 End: 03-22-2024 Bamboo flowsheet Sterling Porterer DO Work Phone: [facility] Start: 03-22-2024 End: 03-22-2024 ambulatory STERLING TORRES Not Available Start: 03-20-2024 End: 03-20-2024 ambulatory Campbell Ball DO Work Phone: [facility] Work Phone: Start: 03-20-2024 End: 03-20-2024 Patient encounter procedure Campbell Ball DO Work Phone: [facility] Work Phone: Start: 03-17-2024 Non-patient / Non-visit Benjam in Ball DO Work Phone: [facility] Work Phone: Start: 03-14-2024 End: 03-14-2024 ambulatory Campbell Ball DO Work Phone: [facility] Work Phone: Start: 03-14-2024 End: 03-14-2024 Patient encounter procedure Campbell Ball DO Work Phone: [facility] Work Phone: Start: 03-11-2024 End: 03-11-2024 ambulatory Juan Pay Facility:[facility] Start: 03-11-2024 End: 03-11-2024 Departed Referred Campbell Ball DO Work Phone: [facility] Start: 03-11-2024 Non-patient / Non-visit Benjam in Ball DO Work Phone: [facility] Work Phone: Start: 02-11-2024 Non-patient / Non-visit Benjam in Rives DO Work Phone: [facility] Work Phone: Start: 02-11-2024 End: 02-11-2024 ambulatory CAMPBELL Dakota SAAVEDRA Facility:[facility] Start: 02-08-2024 End: 02-08-2024 ambulatory CAMPBELL Duncan NEMO Facility:[facility] Start: 02-08-2024 End: 02-08-2024 Patient encounter procedure Leticia Milian APRN.[employer] INFORMATION CLERK Work Phone: Urology Comment on above: Recurrent UTI (Prima ry Dx); Benign prostatic hyperplasia, unspecified whether lower urinary tract symptoms present; Incomplete bladder emptying Start: 02-01-2024 End: 02-01-2024 ambulatory [facility] Work Phone: Start: 02-01-2024 End: 02-01-2024 Patient encounter procedure [facility] Work Phone: Start: 01-31-2024 Non-patient / Non-visit Benjam in Rives DO Work Phone: [facility] Work Phone: Start: 01-30-2024 Non-patient / Non-visit [facility] Work Phone: Start: 12-30-2023 Non-patient / Non-visit [facility] Work Phone: Start: 12-28-2023 End: 12-28-2023 ambulatory [facility] Work Phone: Start: 12-28-2023 End: 12-28-2023 Patient encounter procedure [facility] Work Phone: Start: 12-25-[address] [facility] Start: 12-17-2023 End: 12-17-2023 Bamboo flowsheet Sterling Torres DO Work Phone: [facility] Start: 12-17-2023 End: 12-17-2023 Bamboo flowsheet Sterling Torres DO Work Phone: [facility] Start: 12-17-2023 End: 12-17-2023 Clinisync Result Encounter Sterling Kin Torres DO Work Phone: [facility] External Department Unsolicited Start: 12-17-2023 End: 12-17-2023 ambulatory Sterling Torres Facility:[facility] Start: 12-17-2023 End: 12-17-2023 Patient encounter procedure Sterling Torres [facility] Start: 12-17-2023 End: 12-17-2023 ambulatory STERLING TORRES Not Available Start: 12-15-2023 End: 12-15-2023 ambulatory [facility] Work Phone: Start: 12-15-2023 End: 12-15-2023 Patient encounter procedure [facility] Work Phone: Start: 09-23-2023 End: 09-23-2023 ambulatory DO Campbell Saavedra Work Phone: [facility] Work Phone: Start: 09-23-2023 End: 09-23-2023 Patient encounter procedure DO Campbell Ball Work Phone: [facility] Work Phone: Start: 08-04-2023 Non-patient / Non-visit DO Lenin Saavedra Work Phone: [facility] Work Phone: Start: 08-04-2023 End: 08-04-2023 ambulatory CAMPBELL E BALL Facility:[facility] Start: 08-04-2023 End: 08-04-2023 Patient encounter procedure Leticia Milian APRN.[employer] INFORMATION CLERK Work Phone: Urology Comment on above: Benign prostatic hyp erplasia, unspecified whether lower urinary tract symptoms present (Primary Dx); Recurrent UTI; Nocturia Start: 07-26-2023 Non-patient / Non-visit DO Lenin frank Ball Work Phone: [facility] Work Phone: Start: 07-26-2023 End: 07-26-2023 ambulatory CAMPBELL Dakota BALL Facility:[facility] Start: 07-22-2023 End: 07-22-2023 Departed Referred DO Campbell Ball Work Phone: [facility] Start: 07-22-2023 End: 07-22-2023 ambulatory DO Campbell Ball Work Phone: [facility] Work Phone: Start: 07-22-2023 Non-patient / Non-visit DO Lenin Saavedra Work Phone: [facility] Work Phone: Start: 07-12-2023 End: 07-12-2023 ambulatory DO Campbell Ball Work Phone: [facility] Work Phone: Start: 07-12-2023 End: 07-12-2023 Departed Referred DO Campbell Ball Work Phone: [facility] Start: 07-09-2023 End: 07-09-2023 ambulatory DO Campbell Ball Work Phone: [facility] Work Phone: Start: 07-09-2023 End: 07-09-2023 Patient encounter procedure DO Campbell Ball Work Phone: [facility] Work Phone: Start: 07-06-2023 Non-patient / Non-visit DO Lenin Saavedra Work Phone: [facility] Work Phone: Start: 06-23-2023 End: 06-23-2023 ambulatory DO Campbell Saavedra Work Phone: [facility] Work Phone: Start: 06-23-2023 End: 06-23-2023 Patient encounter procedure DO Campbell Saavedra Work Phone: [facility] Work Phone: Start: 05-31-2023 Non-patient / Non-visit DO Lenin Saavedra Work Phone: [facility] Work Phone: Start: 05-21-2023 End: 05-21-2023 Patient encounter procedure DO Campbell Saavedra Work Phone: [facility] Work Phone: Start: 05-15-2023 End: 05-15-2023 Emergency department patient visit DO Campbell Saavedra Work Phone: [facility]-Emergency Room Work Phone: Start: 05-03-2023 Non-patient / Non-visit DO Lenin Saavedra Work Phone: [facility] Work Phone: Start: 04-30-2023 Non-patient / Non-visit DO Lenni Saavedra Work Phone: [facility] Work Phone: Start: 04-21-2023 End: 04-21-2023 ambulatory Campbell Saavedra Other [facility] [employer] Other Start: 04-21-2023 Transitional care manage srvc 14 day discharge Campbell MACIAS [facility] Start: 04-19-2023 End: 04-19-2023 ambulatory Campbell Saavedra Other [facility] Other Start: 04-19-2023 Telephone encounter [facility] Start: 04-15-2023 End: 04-15-2023 ambulatory Campbell Saavedra Other [facility] Other Start: 04-15-2023 Telephone encounter [facility] Start: 03-17-2023 End: 03-17-2023 ambulatory Campbell Saavedra Other [facility] Other Start: 03-17-2023 Transitional care manage srvc 14 day discharge Campbell MACIAS [facility] Start: 03-04-2023 End: 03-04-2023 ambulatory Campbell Saavedra Other [facility] Other Start: 03-04-2023 Telephone encounter [facility] Start: 02-23-2023 End: 02-23-2023 ambulatory Campbell Saavedra Other [facility] Other Start: 02-23-2023 Office outpatient vi sit 15 minutes Campbell Saavedra [facility] Start: 02-23-2023 Telephone encounter [facility] Start: 02-19-2023 End: 02-19-2023 ambulatory Campbell Saavedra Other [facility] Other Start: 02-19-2023 Office outpatient vi sit 15 minutes Campbell Saavedra [facility] Start: 02-02-2023 End: 02-02-2023 Patient encounter procedure Leticia Milian APRN.[employer] LEASE INFORMATION CLERK Work Phone: Urology Comment on above: BPH with obstruction /lower urinary tract symptoms (Primary Dx); Recurrent UTI; Weak urinary stream Start: 01-13-2023 End: 01-13-2023 Emergency department patient visit DO Campbell Saavedra Work Phone: [facility]Emergency [facility] Work Phone: Start: 12-21-2022 End: 12-21-2022 ambulatory Campbell Saavedra Other [facility] Other Start: 12-21-2022 Telephone encounter Campbell Saavedra [facility] Start: 09-22-2022 End: 09-22-2022 ambulatory Campbell Saavedra Other [facility] Other Start: 09-22-2022 Office outpatient vi sit 15 minutes Campbell Ball [facility] Start: 09-20-2022 End: 09-20-2022 ambulatory Cornell Baptiste Other [facility] Other Start: 09-20-2022 Encounter by [employer] Liaison Cornell Baptiste [facility] Start: 09-17-2022 End: 09-17-2022 ambulatory Campbell Saavedra Other [facility] Other Start: 09-17-2022 Office outpatient vi sit 25 minutes Campbell Ball [facility] Start: 09-15-2022 End: 09-15-2022 ambulatory Cornell Baptiste Other [facility] Other Start: 09-15-2022 Encounter by [employer] danish Cornell Baptiste [facility] Start: 06-25-2022 End: 06-26-[address] CAMPBELL SAAVEDRA Facility:[facility] Start: 06-18-2022 End: 06-18-2022 ambulatory Campbell Quentin Other [facility] Other Start: 06-18-2022 Office outpatient vi sit 25 minutes Campbell Quentin [facility] Start: 06-02-2022 End: 06-03-[address] CAMPBELL SAAVEDRA Facility:[facility] Start: 04-08-2022 End: 04-08-2022 ambulatory Campbell Quentin Other [facility] Other Start: 04-08-2022 Office outpatient vi sit 15 minutes Campbell Ball [facility] Start: 03-24-2022 End: 03-24-2022 ambulatory Campbell Saavedra Other [facility] [employer] Other Start: 03-24-2022 Telephone encounter Campbell Saavedra [facility] Start: 03-20-2022 Office outpatient vi sit 25 minutes Campbell Saavedra [facility] Start: 03-20-2022 End: 03-21-[address] CAMPBELL SAAVEDRA [facility] [employer] Other Start: 01-08-2022 End: 01-08-2022 Patient encounter procedure Leonard Dugan MD Work Phone: Urology Comment on above: Chronic epididymitis (Primary Dx); Left hydrocele; Weak urinary stream; BPH without obstruction/lower urinary tract symptoms; Epididymitis Start: 01-07-2022 Refill Leonard Dugan MD Work Phone: Urology Comment on above: Refill Request Start: 12-26-2021 End: 12-26-2021 ambulatory DO Campbell Saavedra Work Phone: [facility] Work Phone: Start: 12-26-2021 End: 12-26-2021 Discharged Recurring DO Campbell Saavedra Work Phone: [facility]-Infusion Therapy - O/P Start: 12-25-2021 End: 12-26-[address] CAMPBELL SAAVEDRA Facility: Start: 12-17-2021 End: 12-17-2021 Emergency department patient visit DO Campbell Saavedra Work Phone: [facility]Emergency Room Start: 12-16-2021 End: 12-16-2021 Patient encounter procedure Leonard Dugan MD Work Phone: Urology Comment on above: Retention of urine ( Primary Dx); Flaccid bladder Start: 12-15-2021 Telephone encounter Leticia puentes APRN.CNP Work Phone: Urology Comment on above: Patient Update Start: 12-11-2021 End: 12-11-2021 Emergency department patient visit DO Campbell Saavedra Work Phone: [facility]Emergency Room Start: 12-11-2021 Telephone encounter Leonard Dugan MD Work Phone: Urology Comment on above: Patient Update Start: 12-10-2021 End: 12-10-2021 Nursing evaluation of patient and report Nurse Urol [facility] Emelia Work Phone: Urology Comment on above: Urinary tract infect ion without hematuria, site unspecified (Primary Dx); Feeling of incomplete bladder emptying; Benign prostatic hyperplasia with urinary retention Start: 12-09-2021 End: 12-09-2021 Nursing evaluation of patient and report [employer] [facility] Work Phone: Urology Comment on above: Urinary frequency (P rimary Dx); Urinary urgency; Urinary straining; Feeling of incomplete bladder emptying Start: 12-08-2021 Telephone encounter Leonard Dugan MD Work Phone: Urology Comment on above: Appointment (Resched ule catheter change) Start: 11-26-2021 End: 11-27-2021 Emergency department patient visit CAMPBELL SAAVEDRA Facility:[facility] Start: 11-21-2021 Telephone encounter Leonard Dugan [...] Emergency department patient visit RAN HOUSTON JR Facility:[facility] Start: 10-23-2021 End: 10-24-[address] CAMPBELL SAAVEDRA Facility:[facility] Start: 10-21-2021 End: 10-22-[address] CAMPBELL SAAVEDRA Facility:[facility] Start: 10-20-2021 Adult health examination Campbell Saavedra Other [facility] Other Start: 07-17-2021 End: 07-18-[address] CAMPBELL SAAVEDRA Facility:[facility] Start: 01-09-2020 End: 01-09-2020 Pre-procedure evaluation check Campbell Saavedra Other [employer] Other Procedures Date Procedure Procedure Detail Performing Clinician Start: 03-22-2024 Computerized ophthalmic imaging optic nerve Sterling Torres DO Work Phone: Start: 03-22-2024 Visual field xm uni/bi w/interp extended exam Sterling Torres DO Work Phone: Start: 03-22-2024 End: 03-22-2024 [facility] medical xm&eval intermediate estab pt Optic atrophy Sterling Torres DO Work Phone: Comment on above: Optic atrophy (Primary Dx); Dry eyes; 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 of both eyes; 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 2 diabetes mellitus (CMS/HCC); Blepharitis of upper and lower eyelids of both eyes, unspecified type Start: 03-11-2024 Urine culture Campbell Saavedra DO Work Phone: Start: 02-11-2024 Bacteria identified in Urine by Culture Campbell Saavedra DO Work Phone: Start: 12-17-2023 End: 12-17-2023 Computerized ophthalmic imaging optic nerve Sterling Torres DO Work Phone: Start: 12-17-2023 [facility] PLATELET COUNT Sterling Torres DO Work Phone: Start: 12-17-2023 End: 12-17-2023 [facility] medical xm&eval comprhnsv estab pt 1/> Mild [...] scan of lower limb veins DO Campbell Saavedra Work Phone: Start: 10-14-2021 Depression screening Campbell Saavedra Other Start: 10-03-2019 Transurethral prostatectomy Sterling Torres Start: 09-20-2019 Transurethral prostatectomy Sterling Torres Start: 07-27-2019 Cystourethroscopy with dilation of urethral stricture Sterling Torres Start: 03-23-2016 Screening for malignant neoplasm of colon Campbell Saavedra Other Start: 01-30-2015 Screening for malignant neoplasm of prostate Campbell Saavedra Other Appendectomy Sterling Torres Extraction of cataract Marysergei jay Torres Tonsillectomy Sterling haji Urine culture DO Campbell [facility] Work Phone: Urine culture DO [facility] Work Phone: Urine culture DO Campbell [facility] Work Phone: Plan of Treatment Date Care Activity Detail Author Start: 07-25-2026 Diabetes Screening Diabetes Travis berger [facility] Start: 11-20-2024 End: 11-20-2024 Patient encounter procedure 11/20/2024 1:30 PM EDT Office Visit [facility] [address] [place] [address] Sterling Torres DO [address] [place] [address] [facility] Start: 05-10-2024 End: 05-10-2024 Patient encounter procedure 05/10/2024 9:00 AM EST Office Visit Urology [address] [place] [address] Leticia Milian, MEDICAL APPLIANCE MAKER.[place] LEASE INFORMATION CLERK [address] [place] [address] Return in about 3 months (around 05/10/2024) for rto for evaluation of BPH w obs/luts, AUA, PVR. Urology Comment on above: Return in about 3 mo nths (around 05/10/2024) for rto for evaluation of BPH w obs/luts, AUA, PVR. Start: 03-22-2024 End: 03-22-2024 Patient encounter procedure [facility] Comment on above: Arrived Start: 03-15-2024 Advance Directive Discussion Advance Directive Discussion [facility] Start: 02-08-2024 End: 05-09-2024 Bacteria identified in Urine by Culture URINE CULTURE Microbiology Routine Recurrent UTI Expected: 02/08/2024, Expires: 05/09/2024 [facility] Comment on above: Expected: 02/08/2024 , Expires: 05/09/2024 Start: 02-08-2024 End: 05-09-2024 Urinalysis complete panel - Urine URINALYSIS, WITH MICROSCOPIC Lab Routine Recurrent UTI Expected: 02/08/2024, Expires: 05/09/2024 [facility] Work Phone: Comment on above: Expected: 02/08/2024 , Expires: 05/09/2024 Start: 02-08-2024 End: 02-08-2024 Patient encounter procedure 02/08/2024 8:30 AM EST Office Visit Urology [address] [place] [address] Leticia Milian, MEDICAL APPLIANCE MAKER.LAND LEASE INFORMATION CLERK [address] [place] [address] Return in about 6 months (around 02/04/2024) for rto for evalution of BPH w obs/luts, UTI AUA, PVR . Urology Comment on above: Return in about 6 mo nths (around 02/04/2024) for rto for evalution of BPH w obs/luts, UTI AUA, PVR . Start: 02-01-2024 Patient referral [facility] Work Phone: Start: 12-17-2023 End: 12-17-2023 Patient encounter procedure 12/17/2023 9:30 AM EDT Office Visit [facility] [address] [place] [address] Sterling Torres DO [address] [place] [address] Arrived [facility] Comment on above: Arrived Start: 11-14-2023 Covid-19 Vaccine ( season) Covid-19 Vaccine ( season) [facility] Start: 11-14-2023 Influenza vaccination Influenza Vacc ine (#1) [facility] Start: 03-15-2023 Advance Directive Discussion Advance Directive Discussion [facility] Start: 03-15-2023 Behavioral Health Screening Behavioral Health Screening [facility] Start: 12-28-2022 Urine microalbumin profile DTaP,Tdap,Td Vaccine (3 - Tdap) [facility] Start: 11-13-2022 Covid-19 Vaccine ( season) Covid-19 Vaccine ( season) [facility] Start: 03-15-2022 Advance Directive Discussion Advance Directive Discussion [facility] Start: 03-15-2022 Depression Assessment Depression Ass essment [facility] Start: 01-08-2022 End: 03-10-2022 Bacteria identified in Urine by Culture URINE CULTURE Microbiology Routine Left hydrocele Chronic epididymitis Weak urinary stream BPH without obstruction/lower urinary tract symptoms Epididymitis Expected: 01/08/2022 (Approximate), Expires: 03/10/2022 [facility] Work Phone: Comment on above: Expected: 01/08/2022 (Approximate), Expires: 03/10/2022 Start: 01-08-2022 End: 03-10-2022 URINALYSIS, REFLEX MICROSCOPIC URINALYSIS, REFLEX MICROSCOPIC Lab Routine Left hydrocele Chronic epididymitis Weak urinary stream BPH without obstruction/lower urinary tract symptoms Epididymitis Expected: 01/08/2022 (Approximate), Expires: 03/10/2022 [facility] Work Phone: Comment on above: Expected: 01/08/2022 (Approximate), Expires: 03/10/2022 Start: 12-10-2021 End: 02-09-2022 Bacteria identified in Urine by Culture URINE CULTURE Microbiology Routine Urinary tract infection without hematuria, site unspecified Expected: 12/10/2021, Expires: 02/09/2022 [facility] Work Phone: Comment on above: Expected: 12/10/2021 , Expires: 02/09/2022 Start: 11-13-2021 Influenza vaccination INFLUENZA (#1) [facility] Start: 11-12-2021 URODYNAMICS URODYNAMICS Pr ocedures Routine 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 Expected: 11/12/2021 (Approximate) [facility] Work Phone: Comment on above: Expected: 11/12/2021 (Approximate) Start: 08-11-2021 COVID-19 VACCINE (5 - Booster for Pfizer series) COVID-19 VACCINE (5 - Booster for Pfizer series) [facility] Start: 03-15-2021 ADVANCE DIRECTIVE DISCUSSION ADVANCE DIRECTIVE DISCUSSION [facility] Start: 03-15-2021 DEPRESSION ASSESSMENT DEPRESSION ASS ESSMENT [facility] Start: 05-26-2012 3 comp foot exam completed DIABETIC FOOT EXAM [facility] Start: 05-17-2012 Pneumococcal Vaccine : 65+ Years (2 of 2 - PCV) Pneumococcal Vaccine: 65+ Years (2 of 2 - PCV) [facility] Start: 1998 Hepatitis B Vaccine (1 of 3 - Risk 3-dose series) Hepatitis B Vaccine (1 of 3 - Risk 3-dose series) [facility] Start: 1998 RSV Vaccine (1 - 1-d ose 60+ series) RSV Vaccine (1 - 1-dose 60+ series) [facility] Start: 1988 SHINGRIX VACCINE (1 of 2) SHINGRIX VACCINE (1 of 2) [facility] Start: 1957 Urine microalbumin profile DTAP,TDAP,TD (1 - Tdap) [facility] Start: 1956 Anxiety Screening Anxiety Screening [facility] Start: 1956 Depression Screening Depression Scre ening [facility] Start: 1956 Hepatitis B surface antibody level LDL CHOLESTEROL [facility] Start: 1948 Hepatitis B screening URINE ALBUMIN:CREATININE RATIO [facility] Start: 1948 Hepatitis C antibody , confirmatory test DILATED RETINAL EXAM [facility] Start: 1944 PNEUMOCOCCAL: 65+ (1 - PCV) PNEUMOCOCCAL: 65+ (1 - PCV) [facility] Start: 1943 Hemoglobin A1c/Hemoglobin.total in Blood HBA1C [facility] Bacteria identified in Urine by Culture [facility] End: 02-02-2024 Bacteria identified in Urine by Culture URINE CULTURE Microbiology Routine Recurrent UTI 5 Occurrences starting 02/02/2023 until 02/02/2024 [facility] Work Phone: Comment on above: 5 Occurrences starti ng 02/02/2023 until 02/02/2024 Comprehensive metabo lic 2000 panel - Serum or Plasma [facility] Holter monitor study [facility] Patient Education [facility] Work Phone: Patient referral [facility] Work Phone: End: 01-14-2024 Urinalysis complete panel - Urine URINALYSIS, WITH MICROSCOPIC Lab Routine Recurrent UTI 5 Occurrences starting 02/02/2023 until 01/14/2024 [facility] Work Phone: Comment on above: 5 Occurrences starti ng 02/02/2023 until 01/14/2024 US Heart Transthoracic [facility] Immunizations Immunization Date Immunization Notes Care Provider Jens eid 12-15-2023 influenza, high dose seasonal, preservative-free [facility] 12-01-2022 influenza virus vaccine, unspecified formulation DO Campbell Saavedra Work Phone: [facility] 12-01-2022 influenza, high dose seasonal, preservative-free Campbell Saavedra Other [facility] [employer] Other 12-19-2021 influenza virus vaccine, split virus (incl. purified surface antigen) Campbell Saavedra Other [facility] [employer] Other 12-19-2021 influenza virus vaccine, unspecified formulation DO Campbell Saavedra Work Phone: [facility] 12-10-2020 influenza virus vaccine, split virus (incl. purified surface antigen) Campbell Saavedra Other [facility] [employer] Other 12-10-2020 influenza virus vaccine, unspecified formulation DO Campbell Saavedra Work Phone: [facility] 01-09-2020 influenza virus vaccine, split virus (incl. purified surface antigen) Campbell Saavedra Other [facility] [employer] Other 01-09-2020 influenza virus vaccine, unspecified formulation DO Campbell Saavedra Work Phone: [facility] 01-23-2019 influenza virus vaccine, live, attenuated, for intranasal use Sterling Torres [facility] 01-14-2018 influenza virus vaccine, split virus (incl. purified surface antigen) Campbell Saavedra Other [facility] [employer] Other 01-14-2018 influenza virus vaccine, unspecified formulation DO Campbell Saavedra Work Phone: [facility] 12-30-2016 influenza virus vaccine, split virus (incl. purified surface antigen) Campbell Saavedra Other [facility] [employer] Other 12-30-2016 influenza virus vaccine, unspecified formulation DO Campbell Saavedra Work Phone: [facility] 03-16-2016 influenza virus vaccine, split virus (incl. purified surface antigen) Campbell Saavedra Other [facility] Other 03-16-2016 influenza virus vaccine, unspecified formulation DO Campbell Saavedra Work Phone: [facility] 05-01-2015 pneumococcal conjuga te vaccine, 13 valent Campbell Saavedra Other [facility] 05-01-2015 pneumococcal Conjuga te, unspecified formulation; Translations: [Need for prophylactic vaccination against Streptococcus pneumoniae (pneumococcus)] Campbell Saavedra Other [facility] Other 12-28-2012 tetanus and diphther ia toxoids, adsorbed, preservative free, for adult use (5 Lf of tetanus toxoid and 2 Lf of diphtheria toxoid) Campbell Saavedra Other [facility] 01-28-2012 diphtheria, tetanus toxoids and acellular pertussis vaccine, unspecified formulation Campbell Saavedra Other [facility] 01-20-2012 pneumococcal polysaccharide vaccine, 23 valent Campbell Saavedra Other [facility] 05-18-2011 pneumococcal polysaccharide vaccine, 23 valent Campbell Saavedra Other [facility] Payers Date Payer Category Payer Self-pay 2016 Unknown KRISTIN [place] SUPPLE[place] [id number] 2016-Present [phone] [address] [place] [address] Indemnity [id number] 2003 Medicare [id number] 1959 Medicare [id number] 1959 Medicare [id number] 1938 Unknown [id number] 3 1938 Unknown [id number] [id number] 3 1938 Unknown [id number] [id number] 3 1938 Unknown [id number] 2.16.840.1.748498.3.579.2.59 3 1938 Unknown [id number] 2.16.840.1.081588.3.579.2.59 3 1938 Unknown [id number] 2.16.840.1.728231.3.579.2.59 3 1938 Unknown [id number] 2.16.840.1.632924.3.579.2.59 3 1938 Unknown [id number] 2.16.840.1.225352.3.579.2.59 3 1938 Unknown [id number] 2.16.840.1.055906.3.579.2.72 7 1938 Unknown [id number] 2.16.840.1.553054.3.579.2.12 59 1938 Unknown [id number] [id number] 59 Medicare Medicare Outpatient [id number] Unknown [facility] Insur [id number] Unknown [id number] [id number] 1 Unknown [id number] [id number] 1 Unknown [id number] [id number] 1 Unknown [id number] [id number] 1 Unknown [id number] [id number] 1 Social History Date Type Detail Facility Start: 10-24-2009 End: 02-08-2024 Tobacco smoking status NHIS Ex-smoker [facility] Start: 03-15-1957 End: 03-15-1971 History of tobacco use Current smoker [facility] Start: 03-15-1957 End: 03-15-1971 History of tobacco use Cigarette Smoker [facility] Start: 10-24-2009 End: 07-28-2022 Cigarettes smoked current (pack per day) - Reported 1.5 [facility] Start: 11-07-2021 End: 02-08-2024 Alcohol intake Current drinker of alcohol (finding) [facility] Start: 1940 Sex Assigned At Not on file [facility] Start: 10-28-2021 End: 01-08-2022 Exposure to SARS-CoV-2 (event) Not sure [facility] Start: 12-11-2021 End: 03-14-2024 Tobacco smoking status WVIS Never smoked tobacco (finding) [facility] Start: 1940 Sex Assigned At Male [facility] Start: 12-16-2021 End: 02-08-2024 Tobacco use and exposure Smokeless tobacco non-user [facility] Start: 12-16-2021 End: 07-28-2022 Sex Assigned At [facility] National Score (1-10 0), lower number is lower risk 61 [facility] Start: 03-29-2023 Alcohol Comment 2-3 times a week. [facility] Start: 12-16-2023 Sexual orientation Heterosexual (finding) [facility] Start: 02-01-2024 End: 03-20-2024 Sex Male (finding) [facility] Medical Equipment Procedure Code Equipment Code Equipment Origin al Text Equipment Identifier Dates [id number], [id number] Start: 10-23-2021 End: 08-04-2023 Comment on above: TEST HOME BLOOD SUGA R ONCE A DAY USE TO TEST HOME BLO OD SUGAR ONCE A DAY Clinical Notes 11-10-2021 to 04-03-2024 Telephone Encounter - Jeannette Crevantes MA - 04/03/2024 9:10 AM ESTTelephone Encounter - Jeannette Cervantes MA - 04/03/2024 9:10 AM Lisha Torres DO - 03/22/2024 11:15 AM EST Note Date & Type Note Facility 04-03-2024 Telephone encounter Note Patient phones requesting refills as follows: Requested Prescriptions Pending Prescriptions Disp Refills tamsulosin (FLOMAX) 0.4 mg [Pharmacy Med Name: TAMSULOSIN HCL CAPS 0.4MG] 90 capsule 3 Sig: TAKE 1 CAPSULE ONCE DAILY Please review and advise. Jeannette Cervantes MA Last ov: 02/08/24 Next appt: 05/10/24 [facility] 04-03-2024 Miscellaneous Notes Patient phones requesting refills as follows: Requested Prescriptions Pending Prescriptions Disp Refills tamsulosin (FLOMAX) 0.4 mg [Pharmacy Med Name: TAMSULOSIN HCL CAPS 0.4MG] 90 capsule 3 Sig: TAKE 1 CAPSULE ONCE DAILY Please review and advise. Jeannette Cervantes MA Last ov: 02/08/24 Next appt: 05/10/24 documented in this encounter [facility] 03-22-2024 Note Right Eye Reliability was poor. Progression has been stable. Foveal threshold was normal. Findings include normal observations. Left Eye Reliability was good. Progression has worsened. Foveal threshold was normal. Findings include superior altitudinal defect. [facility] 03-22-2024 History of Presen t illness Narrative Images from the original note [...] or metamorphopsia. Optic atrophy - Unclear source. No change since last exam. [facility] labs normal. Dry eyes - Dry Eyes OU -- Environmental changes to minimize dryness and exposure and the use of artificial tears were recommended. Blepharitis of upper and lower eyelids of both eyes, unspecified type - Blepharitis, posterior type OU - The patient exhibits inspissated meibomian glands. Warm compresses, lid massage and lid scrubs were recommended. documented in this encounter [facility] 02-08-2024 Instructions Leticia Milian APRN.CNP - 02/08/2024 9:06 AM EST Need to have regular bowel moment with miralax to get going then metamucil daily to regulate Increase water intake Make sure you taking flowmax daily Go to lab and give urine for testing documented in this encounter [facility] 02-08-2024 Note HNO ID: [id number] Author: LETICIA MILIAN APRN.ENIO Service: ? 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 1. INCOMPLETE EMPTYING [...] around 2019 outs (more content not included)... [facility] 02-08-2024 History of Presen t illness Narrative Norberto Washington [address] [place] [id number] HISTORY OF PRESENT ILLNESS: Seen 08/04/23 for BPH w obs/luts, UTI Pt is presently on group home antibiotic due to infection in toes that [...] constipation last BM a couple days ago TPR=756 ML Location: BPH w obs/luts, UTI Pain Character: none Severity Scale: see AUA score, see lab Duration: BPH w obs/luts, UTI [facility] SYMPTOMS SCORE. 1. INCOMPLETE EMPTYING [...] Making Level: 4 - Moderate Leticia Milian APRN.[place] LEASE INFORMATION CLERK documented in this encounter [facility] 12-28-2023 Evaluation note Diagnosis Onset Date Resolution Chronic kidney disease acute Oc tob2023 8:09am Chronic venous insufficiency of lower extremity acute December 27 8:09am Elevated cholesterol acute Octo neftali 2023 8:09am Heart murmur acute December 8:09am HTN (hypertension) acute Octobe r 2023 8:09am Medicare annual wellness visit, subsequent acute December 28, 2023 8:09am Overweight acute December 28, 2023 8:09am Type 2 diabetes mellitus with diabetic polyneuropathy acute December 27 8:09am Type 2 diabetes mellitus with hyperglycemia acute December 28, 2023 8:09am Aortic stenosis, mild acute Nov emb2023 1:24pm Atrial flutter acute January 132023 1:24pm Chronic kidney disease acute No vember 2023 1:24pm Chronic venous insufficiency of lower extremity acute January 31 2 024 1:24pm Elevated cholesterol acute Nove mber 2023 1:24pm HTN (hypertension) acute Novemb er 2023 1:24pm Type 2 diabetes mellitus with diabetic polyneuropathy acute January 31 2 024 1:24pm Type 2 diabetes mellitus with hyperglycemia acute January 1:24pm [facility] Work Phone: 1(750) 811-362610-15-2024 Evaluation note* Diagnosis Onset Date Resolution Status Admit Date Chronic kidney disease acute Oc tober 2023 8:09am Chronic venous insufficiency of lower extremity acute December 27 8:09am Elevated cholesterol acute Octo neftali 2023 8:09am Heart murmur acute December 8:09am HTN (hypertension) acute Octobe r 2023 8:09am Medicare annual wellness vis it, subsequent acute December 27 8:09am Overweight acute December 28, 2023 8:09am Type 2 diabetes mellitus wit h diabetic polyneuropathy acute December 28, 2023 8:09am Type 2 diabetes mellitus wit h hyperglycemia acute December 27 8:09am Aortic stenosis, mild acute Jan 1:24pm Atrial flutter acute January 132023 1:24pm Chronic kidney disease acute No 2023 1:24pm Chronic venous insufficiency of lower extremity acute January 31 2 024 1:24pm Elevated cholesterol acute Nove mber 2023 1:24pm HTN (hypertension) acute Novemb er 2023 1:24pm Type 2 diabetes mellitus wit h diabetic polyneuropathy acute February 01, 2024 1:24pm Type 2 diabetes mellitus wit h hyperglycemia acute January 31 2 024 1:24pm Aortic stenosis, mild acute Dec 2023 2:45pm Atrial flutter acute February 142023 2:45pm HTN (hypertension) acute Decemb er 2023 2:45pm Subclinical hypothyroidism acute March 14, 2024 2:45pm [facility] Work Phone: 1(260) 200-972510-04-2024 NoteRight Eye Quality was good. Scan locations included subfoveal. Progression has been stable. Findings include normal observations. Left Eye Quality was good. Scan locations included subfoveal. Progression has been stable. Findings include normal observations. Notes Good scan with normal appearanceMissouri Southern [id number] History of Present illness Narrative* Sterling Torres DO - 12/17/2023 9:30 AM EDT Images [...] lid scrubs were recommended. documented in this encounterMissouri Southern [id number] History of Present illness Narrative* Leticia Milian, MEDICAL APPLIANCE MAKER.LAND LEASE INFORMATION CLERK - 08/04/2023 8:58 AM EDT Norberto Washington [address] [facility] [address] HISTORY OF PRESENT ILLNESS: Seen 02/02/23 for [...] finding today 08/04/23) Pt is presently on group home antibiotic due to infection in toes that went to bone Stated that urinary symptoms have resolved with treatment. PVR=36 ML UA 07/26/23=trace leuk esterase Culture 07/26/23=<10,000 CFU/ml Lactose positive gram negative bacilli Abnormal A1C 07/26/23=6.4 Location: BPH w obs/luts, UTI Pain Character: none Severity Scale: see AUA score, see lab Duration: BPH w obs/luts, UTI [facility] SYMPTOMS SCORE. 1. INCOMPLETE EMPTYING [...] Moderate Leticia Milian APRN.ENIO documented [facility] NoteHNO ID: [id number] Author: LETICIA MILIAN APRN.CNP Service: ? Author Type: Nurse Practitioner Type: Progress Notes Filed: 08/04/2023 09:23 Note Text: Norberto Washington [address] [facility] [address] HISTORY OF PRESENT ILLNESS: Seen 02/02/23 for [...] finding today 08/04/23) Pt is presently on group home antibiotic due to infection in toes that went to bone Stated that urinary symptoms have resolved with treatment. PVR=36 ML UA 07/26/23=trace leuk esterase Culture 07/26/23=<10,000 CFU/ml Lactose positive gram negative bacilli Abnormal A1C 07/26/23=6.4 Location: BPH w obs/luts, UTI Pain Character: none Severity Scale: see AUA score, see lab Duration: BPH w obs/luts, UTI [facility] SYMPTOMS SCORE. 1. INCOMPLETE EMPTYING [...] Standing order for urin (more content not included)...[facility] 04-21-2023 Evaluation note* Encounter Date Diagnosis [...] - recommend Picc line and IV antibiotics [facility] Other 01-03-2024 Evaluation note* Encounter Date Diagnosis [...] to restart Amlodipine. Continue PAUL for now. [facility] Other 12-12-2023 Evaluation note* Encounter Date Diagnosis [...] and inserts to prevent callus formation.Fall precautions. [facility] Other 12-08-2023 Evaluation note* Encounter Date Diagnosis [...] ulcers. Recommend routine foot care w/ Podiatry [facility] Other 11-21-2023 Miscellaneous Notes* Addendum Note - Leticia Milian APRN.CNP - 02/02/2023 2:16 PM ESTAddended by: LETICIA MILIAN on: 02/02/2023 02:16 PM Modules accepted: Orders documented in this encounterPark[facility] History of Present illness Narrative* Leticia Milian APRN.[place] LEASE INFORMATION CLERK - 02/02/2023 1:40 PM EST Norberto Washington [address] [facility] [address] HISTORY OF PRESENT ILLNESS: Seen 07/28/22 for [...] see lab Duration: BPH w obs/luts, UTI [facility] SYMPTOMS SCORE. 1. INCOMPLETE EMPTYING [...] Moderate Leticia Milian APRN.ENIO documented in this encounterPark[facility] Evaluation note* Encounter Date Diagnosis Assessment [...] w/ acute infection Requires no additional treatment [facility] Other 07-06-2023 Evaluation note* Encounter Date Diagnosis [...] exercise for 30 minutes, 3-5 times weekly. [facility] Other 04-06-2023 Evaluation note* Encounter Date Diagnosis [...] w/ antibiotics and treatment of urinary retention [facility] Other 03-21-2023 NotePROCEDURE: XR FOOT LT MIN [...] Electronically authenticated by: SAMY TORRES Date: 2022-06-02 15:48[facility]03-21-2023 NotePROCEDURE: XR FOOT LT MIN 3 [...] Electronically authenticated by: SAMY TORRES Date: 2022-06-02 15:48[facility]01-25-2023 Evaluation note* Encounter Date Diagnosis Assessment [...] lesion was treated w/ cryotherapy w/o complications [facility] Other 01-06-2023 Evaluation note* Encounter Date Diagnosis [...] to decrease development of calluses and ulcerations 06 Dimitry, 2023 Hyperlipidemia type II (ICD-10 - E78.01) Diet [...] Mar, Hesitancy of micturition (ICD-10 - R39.11) [facility] Other 10-27-2022 History of Present illness Narrative* Zuleika Hackett - 01/08/2022 8:20 AM EDT Norberto Washington [address] [address] Mr. Washington presents with chief complaints of: Enlarged L testicle. ED 11/07/21: PVR 179 cc, refused a catheter, scheduled to undergo a cystoscopy in [place] but was cancelled due to his urologist [...] epididymitis Hydroceles: None Spermatoceles: None Varicoceles: None [facility] SYMPTOMS SCORE. Date 01/08/2022 1. [...] complete. Leonard Dugan M.D. documented in this encounterPark[facility] Hospital Discharge instructions Additional Instructions Continue taking Flomax as prescribed Avoid drinking any fluids several hours before bed Call your urologist tomorrow for a follow-up appointment Return if you are unable to urinate, develop blood in your urine, abdominal pain, [facility] Work Phone: [phone] 240-894810-04-2022 History of Present illness Narrative* Leonard Dugan MD - 12/16/2021 2:51 PM EDT Norberto Washington [address] [facility] [address] HISTORY OF PRESENT ILLNESS: ED 11/07/21: PVR 179 cc, refused a catheter, scheduled to undergo a cystoscopy in [place] but was cancelled due to his urologist [...] Otherwise, intermittent catheterization. Agreed indwelling catheter 16 [place] citizen. Flomax will not work, no prostate tissue [...] well resected prostate (had 2 TURP) in [place] PLAN: (Management Options): -Start Flomax one cap [...] Moderate Leonard Dugan MD documented in this encounterPark[facility]10-03-2022 Miscellaneous Notes* Telephone Encounter - Valente Bell LPN - 12/15/2021 3:58 PM EDT Called and spoke to patient regarding message below. Patient states understanding to information provided. No further action required at this time. * Telephone Encounter - Leticia Milian APRN.ENIO - 12/15/2021 10:13 AM EDT Please call and confirm that pt received Evino message to start new script sent for antibiotic. Thanks Leticia MONDRAGON documented in this encounterParkview [facility]09-29-2022 Miscellaneous Notes* Telephone Encounter - Valente [...] be draining normally now. documented in this encounterParkview [facility]09-28-2022 Nurse Note* Stephanie Kaur RN - [...] hyperplasia with urinary retention documented in this encounterParkview [facility]09-27-2022 History of Present illness Narrative* Leonard Dugan MD - 12/09/2021 5:05 PM EDT [facility] PHYSICIAN INTERPRETATION: [...] contractility Leonard Dugan MD documented in this encounterParkview [facility]09-27-2022 Nurse Note* Stephanie Kaur RN - 12/09/2021 3:57 PM EDT [facility] UR[facility] [...] of incomplete bladder emptying documented in this encounterParkview Health [facility]09-26-2022 Miscellaneous Notes* Telephone Encounter - Stephanie Kaur RN - 12/08/2021 4:11 PM EDT LM for patient to reschedule catheter change for tomorrow. Last changed 11/26/21 in ED. Will be due for change on 12/23/21. Stephanie Kaur R.N. documented in this encounterParkview Health [facility]09-12-2022 Miscellaneous Notes* Telephone Encounter - Sonia [...] has been busy with his spouse at [facility] having to care for her needs and hadn't called earlier when it first started on Wednesday. He was hoping it would clear up but it has not, urine is between Conrad tint & Brown and he does see small clots. Patient does have pain at the end of his Penis slight swelling noted (he has been applying Neosporin) Denies difficulty with urine draining into Smith bag, he does not have back pain Please advise documented in this encounterParkview Health [facility]08-31-2022 Nurse Note* Stephanie Kaur RN - [...] Education Session: None Instruction Provided To: Patient Bill Collector Present: not applicable Discipline: Nursing Learning Topic: [...] supervision. Stephanie Kaur RN documented in this encounterParkview Health [facility]08-31-2022 Procedure note* Leonard Dugan MD - 11/12/2021 11:00 AM EDTProcedure(s): CYSTOSCOPY Pre-Procedure Diagnose(s): BPH with obstruction/lower urinary tract symptoms Post-Procedure Diagnose(s): BPH with obstruction/lower urinary tract symptoms PROCEDURE: CYSTOSCOPY INDICATIONS: ED 11/07/21: PVR 179 cc, refused a catheter, scheduled to undergo a cystoscopy in [place] but was cancelled due to his urologist [...] Otherwise, intermittent catheterization. Agreed indwelling catheter 18 [place] citizen. By signing my name below, I, Zuleika [...] complete. Leonard Dugan M.D. documented in this encounterParkview Health [facility]08-29-2022 History of Present illness Narrative* Leonard Dugan MD - 11/10/2021 12:11 PM EDT Cysto with uroflow 11-12-21 ED 11/07/21: PVR 179 cc, refused a catheter, scheduled to undergo a cystoscopy in [place] but was cancelled due to his urologist was sick Pt underwent TURP x2 within a week AUA= 3-5 wach ROSAMARIA 11/10/21 - 10 gm, rubbery, no nodules US 11/07/21:= mildly complex renal cysts UA and culture 11-07-21= -ve May need UDS based on cysto [facility] No data available for this section [facility] Evaluation note* Diagnosis BPH with obstruction/lower urinary tract symptoms- Primary Hypertrophy of prostate with urinary obstruction and other lower urinary tract symptoms (LUTS) Benign prostatic hyperplasia with urinary retention documented in this encounter [facility] note* Diagnosis Urinary frequency- Primary Urinary urgency Urgency of urination Urinary straining Straining on urination Feeling of incomplete bladder emptying Incomplete bladder emptying [facility]* Diagnosis Urinary tract infection without hematuria, site unspecified- Primary Feeling of incomplete bladder emptying Incomplete bladder emptying Benign prostatic hyperplasia with urinary retention documented in this encounter [facility] noteNo assessment information [facility] Work Phone: Evaluation note* Diagnosis Retention of urine- Primary Retention of urine, unspecified Flaccid bladder Neurogenic bladder, NOS documented [facility]* Diagnosis Chronic epididymitis- Primary Left hydrocele Hydrocele, unspecified Weak urinary stream Slowing of urinary stream BPH without obstruction/lower urinary tract symptoms Hypertrophy of prostate without urinary obstruction and other lower urinary tract symptoms (LUTS) Epididymitis Orchitis and epididymitis, unspecified documented [facility] this encounter [facility] noteNo InformationNort DestinationRX Other Evaluation note* Diagnosis BPH with obstruction/lower urinary tract symptoms- Primary Hypertrophy of prostate with urinary obstruction and other lower urinary tract symptoms (LUTS) Recurrent UTI Urinary tract infection, site not specified Weak urinary stream Slowing of urinary stream documented [facility] this encounter [facility]* Diagnosis Onset Date Resolution Status Chronic venous insufficiency of lower extremity acute Type 2 diabetes mellitus with hyperglycemia acute Chronic kidney disease acute Chronic venous insufficiency of lower extremity acute Elevated cholesterol acute HTN (hypertension) acute Type 2 diabetes mellitus with hyperglycemia acute [facility] Work Phone: Evaluation note* Diagnosis Onset Date Resolution Status Chronic venous insufficiency of lower extremity acute Type 2 diabetes mellitus with hyperglycemia acute Chronic kidney disease acute Chronic venous insufficiency of lower extremity acute Elevated cholesterol acute HTN (hypertension) acute Overweight acute Type 2 diabetes mellitus with hyperglycemia acute [facility] Work Phone: Evaluation note* [...] acute Preop exam for internal medicine noneactive [facility] Work Phone: Evaluation note* Diagnosis Benign prostatic hyperplasia, unspecified whether lower urinary tract symptoms present- Primary Recurrent UTI Urinary tract infection, site not specified Nocturia documented in this encounter [facility]* Diagnosis Onset Date Resolution Status Chronic [...] Type 2 diabetes mellitus with hyperglycemia acute [facility] Work Phone: Evaluation note* Diagnosis Onset Date Resolution Status Chronic kidney disease acute Chronic venous insufficiency of lower extremity acute Elevated cholesterol acute HTN (hypertension) acute Overweight acute Type 2 diabetes mellitus with diabetic polyneuropathy acute Type 2 diabetes mellitus with hyperglycemia acute [facility] Work Phone: Evaluation note* Diagnosis 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 2 diabetes mellitus ([facility])- Primary 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 Dry eyes Unspecified tear film insufficiency Blepharitis of upper and lower eyelids of both eyes, unspecified type [facility] Diagnosis Onset Date Resolution Status Chronic kidney disease acute Chronic venous insufficiency of lower extremity acute Elevated cholesterol acute HTN (hypertension) acute Medicare annual wellness visit, subsequent acute Overweight acute Type 2 diabetes mellitus with diabetic polyneuropathy acute Type 2 diabetes mellitus with hyperglycemia acute [facility] Work Phone: Evaluation note* Diagnosis Recurrent UTI- Primary Urinary tract infection, site not specified Benign prostatic hyperplasia, unspecified whether lower urinary tract symptoms present Incomplete bladder emptying documented in this encounter [facility]* Diagnosis Optic atrophy- Primary Unspecified optic atrophy Dry eyes Unspecified tear film insufficiency 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 Progress note No data available for this section 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 Procedures URODYNAMICS MAGGY POST-VOIDING RESIDUAL URINE&/BLADDER CAP Leonard Dugan MD [address] [place] [address] [facility] [address] [place] [address] Referral ID Status Reason Start Date Expiration Date Visits Requested Visits Authorized [id number] Pending Review Auto-Generat ed Referral 11/12/2021 11/12/2022 1 1 [facility] Medications Administered Section Inactive Administered Medications [...] with hyperglyce francisco February 01, 2024 1:24pm Chief Complaint Admit Date wellness December 28, 2023 8 :09am ER follow up February 01, 2024 1:24pm Unknown March 11, 2024 1:33pm I48.3 March 14, 2024 2:51pm Reason for Visit Admit Date Chronic kidney [...] with hyperglyce francisco February 01, 2024 1:24pm Aortic stenosis, mild March 14 2:45pm Atrial flutter March 14, 2024 2:45pm HTN (hypertension) March 14, 2024 2:45pm Subclinical hypothyroidism February 2:45pm Chief Complaint Admit Date wellness December 28, 2023 8 :09am ER follow up February 01, 2024 1:24pm Unknown March 11, 2024 1:33pm I48.3 March 14, 2024 2:51pm Amb Documentation March 17, 2024 12 :47pm UA, recheck March 20, 2024 1: 19pm Reason for Referral Reason Refer for diabetic f oot ulcer and calluses Diagnosis 1 Foot abscess, right (L02.611) Diagnosis 2 Callus of foot (L84) Diagnosis 3 Hammer toe of right foot (M20.41) Referral Organization [facility] Referring Provider First Name Campbell Referring Provider Last Name Quentin Referring Provider Specialty Internal Me dicarmando Referred Organization [facility] Referred Provider Jhon Tejada Referred Address [address] [place], [place],[address] Referred Provider Specialty Podiatry - S urgical [...] or prosecute any alcohol or drug abuse patient.[facility] HospitalIn the event this information is protected by the Federal Confidentiality of Alcohol and Drug Abuse Patient Records regulations: The Federal rules restrict any use of the information to criminally investigate or prosecute any alcohol or drug abuse patient.[facility] HospitalIn the event this information is protected by the Federal Confidentiality of Alcohol and Drug Abuse Patient Records regulations: The Federal rules restrict any use of the information to criminally investigate or prosecute any alcohol or drug abuse patient.[facility] HospitalIn the event this information is protected by the Federal Confidentiality of Alcohol and Drug Abuse Patient Records regulations: The Federal rules restrict any use of the information to criminally investigate or prosecute any alcohol or drug abuse patient.[facility] HospitalIn the event this information is protected by the Federal Confidentiality of Alcohol and Drug Abuse Patient Records regulations: The Federal rules restrict any use of the information to criminally investigate or prosecute any alcohol or drug abuse patient.[facility] HospitalIn the event this information is protected by the Federal Confidentiality of Alcohol and Drug Abuse Patient Records regulations: The Federal rules restrict any use of the information to criminally investigate or prosecute any alcohol or drug abuse patient.[facility] HospitalIn the event this information is protected by the Federal Confidentiality of Alcohol and Drug Abuse Patient Records regulations: The Federal rules restrict any use of the information to criminally investigate or prosecute any alcohol or drug abuse patient.[facility] HospitalIn the event this information is protected by the Federal Confidentiality of Alcohol and Drug Abuse Patient Records regulations: The Federal rules restrict any use of the information to criminally investigate or prosecute any alcohol or drug abuse patient.[facility] HospitalIn the event this information is protected by the Federal Confidentiality of Alcohol and Drug Abuse Patient Records regulations: The Federal rules restrict any use of the information to criminally investigate or prosecute any alcohol or drug abuse patient.[facility] HospitalIn the event this information is protected by the Federal Confidentiality of Alcohol and Drug Abuse Patient Records regulations: The Federal rules restrict any use of the information to criminally investigate or prosecute any alcohol or drug abuse patient.[facility] HospitalIn the event this information is protected by the Federal Confidentiality of Alcohol and Drug Abuse Patient Records regulations: The Federal rules restrict any use of the information to criminally investigate or prosecute any alcohol or drug abuse patient.[facility] HospitalIn the event this information is protected by the Federal Confidentiality of Alcohol and Drug Abuse Patient Records regulations: The Federal rules restrict any use of the information to criminally investigate or prosecute any alcohol or drug abuse patient.[facility] HospitalIn the event this information is protected by the Federal Confidentiality of Alcohol and Drug Abuse Patient Records regulations: The Federal rules restrict any use of the information to criminally investigate or prosecute any alcohol or drug abuse patient.[facility] HospitalIn the event this information is protected by the Federal Confidentiality of Alcohol and Drug Abuse Patient Records regulations: The Federal rules restrict any use of the information to criminally investigate or prosecute any alcohol or drug abuse patient.[facility] HospitalIn the event this information is protected by the Federal Confidentiality of Alcohol and Drug Abuse Patient Records regulations: The Federal rules restrict any use of the information to criminally investigate or prosecute any alcohol or drug abuse patient.[facility] Care Teams (unrecognized sec tion and content) Team Status: Active Member Role Status Dates Campbell Saavedra , DO Primary Care Provider Active Team Status: Inactive Member Role Status Dates Campbell Saavedra , DO Primary Care Provide r, Attending Provider Active Start: September 23, 2023 End: September 23, 2023 Team Status: Inactive Member Role Status Dates Campbell Saavedra , DO Primary Care Provide r, Attending Provider Active Start: December 15, 2023 End: December 15, 2023 Team Status: Active Member Role Status Dates Campbell Saavedra DO Primary Care Provide r, Attending Provider Active Start: April 30, 2023 Team Status: Active Member Role Status Dates Campbell Saavedra , DO Primary Care Provide r, Attending Provider Active Start: May 03, 2023 Team Status: Inactive Member Role Status Dates Campbell Saavedra , DO Primary Care Provider Active Start: [...] Status Dates Campbell Saavedra , Primary Care Provide r, Attending Provider Active Start: June 23, 2023 End: June 23, 2023 Team Status: Inactive Member Role Status Dates Campbell Saavedra , Primary Care Provider Active Low Carter , DO Emergency Provider Active Mechanical Developer Prover Relationship Specialty Start Date End Date Ran Houston Jr. PCP - General 10/10/09 Mechanical Developer Prover Relationship Specialty Start Date End Date Ran Houston Jr. PCP - General 10/10/09 Mechanical Developer Prover Relationship Specialty Start Date End Date Ran Houston Jr. PCP - General 10/10/09 Mechanical Developer Prover Relationship Specialty Start Date End Date Campbell Saavedra, DO [address] [facility] [place] [address] PCP - General Internal Medicine 11/26/21 Mechanical Developer Prover Relationship Specialty Start Date End Date Campbell Saavedra, DO [address] [facility] [place] [address] PCP - General Internal Medicine 11/26/21 Mechanical Developer Prover Relationship Specialty Start Date End Date Campbell Saavedra, DO [address] [place] [address] PCP - General Internal Medicine 11/26/21 Mechanical Developer Prover Relationship Specialty Start Date End Date Campbell Saavedra, DO [address] [facility] [address] PCP - General Internal Medicine 11/26/21 Team Status: Inactive Member Role Status Dates Campbell Saavedra DO Primary Care Provider Active Davis Cervantes MD Emergency Provider Active Mechanical Developer Prover Relationship Specialty Start Date End Date Campbell Saavedra, DO [address] [facility] [place] [address] PCP - General Internal Medicine 11/26/21 Team Status: Inactive Member Role Status Dates Campbell Saavedra , Primary Care Provider Active Sam Simons , Emergency Provider Active Team Status: Inactive Member Role Status Dates Campbell Saavedra , Primary Care Provider Active Sam J Simons , DO Attending Provider Active Mechanical Developer Prover Relationship Specialty Start Date End Date QuentinCampbell Dakota, DO [address] [facility] [place] [address] PCP - General Internal Medicine 11/26/21 Mechanical Developer Prover Relationship Specialty Start Date End Date Campbell Saavedra, DO [address] [facility] [place] [address] PCP - General Internal Medicine 11/26/21 Mechanical Developer Prover Relationship Specialty Start Date End Date Campbell Saavedra DO [address] [facility] [place] [address] PCP - General Internal Medicine 11/26/21 Team [...] July 22, 2023 End: July 22, 2023 Mechanical Developer Prover Relationship Specialty Start Date End Date Campbell Saavedra DO [address] [facility] [place] [address] PCP - General Internal Medicine 11/26/21 Team Status: Active Member Role Status Dates Campbell Saavedra DO Primary Care Provider Active Start: July 26, 2023 Leticia Milian MEDICAL APPLIANCE MAKER Attending Provider Active Start: July 26, 2023 Team Status: Active Member Role Status Dates Campbell Saavedra DO Primary Care Provider Active Start: August 04, 2023 TAMMY Fair Attending Provider Active Start : August 04, 2023 Mechanical Developer Prover Relationship Specialty Start Date End Date Campbell Saavedra MD [address] [facility] [address] PCP - General Internal Medicine 12/17/23 Mechanical Developer Prover Relationship Specialty Start Date End Date Campbell Saavedra MD [address] [facility] [address] PCP - General Internal Medicine 12/17/23 Mechanical Developer Prover Relationship Specialty Start Date End Date Campbell Saavedra MD [address] [facility] [address] PCP - General Internal Medicine 12/17/23 Team [...] February 01, 2024 End: February 01, 2024 Mechanical Developer Prover Relationship Specialty Start Date End Date Campbell Saavedra DO [address] [facility], [place] [id number] PCP - General Internal Medicine 11/26/21 Mechanical Developer Prover Relationship Specialty Start Date End Date Campbell Saavedra MD [address] [place] [address] PCP - General Internal Medicine 12/17/23 Mechanical Developer Prover Relationship Specialty Start Date End Date Campbell Saavedra MD [address] [place] [id number] PCP - General Internal Medicine 12/17/23 Team Status: Active Member Role Status Dates Campbell Saavedra DO Primary Care Provide r, Attending Provider Active Start: January 31, 2024 Team Status: Active Member Role Status Dates Campbell Saavedra DO Primary Care Provider Active Start: February 11, 2024 Leticia Milian [facility] Attending Provider Active Start: February 11, 2024 Team Status: Active Member Role Status Dates Campbell Saavedra DO Primary Care Provider Active Start: March 11, 2024 Juan Sal DO Attending Provider Active Start : March 11, 2024 Team Status: Inactive Member Role Status Dates Campbell Saavedra DO Primary Care Provider Active Start: March 11, 2024 End: March 11, 2024 Juan Sal DO Attending Provider Active Start : March 11, 2024 End: March 11, 2024 Team Status: Inactive Member Role Status Dates Campbell Saavedra DO Primary Care Provider Active Start: March 14, 2024 End: March 14, 2024 Keely Hernandez MD Attending Provider Activ e Start: March 14, 2024 End: March 14, 2024 Team Status: Active Member Role Status Dates Campbell Saavedra DO Primary Care Provider Active Start: March 17, 2024 Silvia Au CMA Attending Provider Active Start: March 17, 2024 Team Status: Inactive Member Role Status Dates Campbell Saavedra DO Primary Care Provide r, Attending Provider Active Start: March 20, 2024 End: March 20, 2024 Mechanical Developer Prover Relationship Specialty Start Date End Date Campbell Saavedra DO [address] [place] [address] PCP - General Internal Medicine 11/26/21 Reason for Visit (unrecogniz ed section and content) Reason Comments Cystoscopy-1 Reason Comments Smith Cath Problem Hematuria Reason Comments urodynamics Reason Comments Smith Reason Comments Appointment Reschedule catheter change Reason Comments Patient Update Reason Comments Follow Up Reason Comments Refill Request Reason Comments Consult Reason Comments Diabetic Eye Exam Reason Comments Follow-up (unrecognized sect ion and content) No Status Records FoundNo Status Records FoundNo Status Records FoundNo Status Records FoundNo Status Records FoundNo Status Records FoundNo Status Records FoundNo Status Records FoundNo Status Records Found INFORMATION SOURCE (unrecogn ized section and content) DATE CREATED AUTHOR 12/13/2021 [facility] DATE CREATED AUTHOR AUTHOR'S ORGANIZ ATION 06/25/2022 [facility] DATE CREATED AUTHOR AUTHOR'S ORGANIZ ATION 12/19/2023 Lecanto Clackamas [facility] DATE CREATED AUTHOR AUTHOR'S ORGANIZ ATION 12/26/2023 Lecanto Baldemar [facility] DATE CREATED AUTHOR AUTHOR'S ORGANIZ ATION 02/13/2024 [facility] DATE CREATED AUTHOR AUTHOR'S ORGANIZ ATION 03/28/2024 [facility] DATE CREATED AUTHOR AUTHOR'S ORGANIZ ATION 03/28/2024 [facility] Goals (unrecognized section and content) Goals may [...] BE BASED ON THE PRIMARY CLINICAL RECORDS. [facility] [employer] [facility]. provides no warranty or guarantee of the accuracy or completeness of information in this document.
[2024-04-05 09:45] LABS: Basophils Percent Auto 0.6 % (0.2-2.0); Eosinophils Absolute Auto 0.2 10^3/uL (0.0-0.7); Eosinophils Percent Auto 3.8 % (0.9-7.0); Hemoglobin 12.2 g/dL (14.0-18.0); Immature Granulocytes Abs Auto 0.02 10^3/uL (0.00-0.03); Immature Granulocytes Pct Auto 0.3 % (0.0-0.5); Lymphocytes Absolute Auto 1.7 10^3/uL (1.2-3.8); Lymphocytes Percent Auto 25.8 % (20.5-60.0); Mean Corpuscular HGB Conc 33.9 g/dL (29.9-35.2); Mean Corpuscular Hemoglobin 32.4 pg (25.9-34.0); Mean Corpuscular Volume 95.7 fL (80.0-94.0); Mean Platelet Volume 8.9 fL (9.5-13.5); Monocytes Absolute Auto 0.9 10^3/uL (0.3-0.8); Monocytes Percent Auto 14.2 % (1.7-12.0); Neutrophils Absolute Auto 3.5 10^3/uL (1.4-6.5); Neutrophils Percent Auto 55.3 % (43.0-75.0); Platelet Count 227 10^3/uL (150-450); Red Blood Count 3.76 10^6/uL (4.70-6.10); Red Cell Distribution Width 11.6 % (11.0-15.0); White Blood Count 6.4 10^3/uL (4.0-11.0)
[2024-04-05 10:30] LABS: Percent Iron Saturation 26.8 %
[2024-04-05 10:39] LABS: Thyroid Stimulating Hormone 3.909 uIU/mL (0.358-3.740)
[2024-04-05 10:43] LABS: Free T4 0.83 ng/dL (0.76-1.46)
[2024-04-06 04:08] LABS: Thyroid Peroxidase (TPO) Ab <9 IU/mL (0-34)
[2024-04-06 05:09] LABS: Vitamin B12 491 pg/mL (232-1245)
== END 2024-04-05 09:25 | disposition home or self-care (01) ==
LOC: LAB 09:25
PROVIDERS: PCP Internal Medicine; Visit Provider Internal Medicine
DX: E03.8 Other specified hypothyroidism (principal); D64.9 Anemia, unspecified
CPT/HCPCS: 36415; 82607; 82728; 82746; 83540; 83550; 84439; 84443; 85025; 86376

== ENCOUNTER 2024-04-19 15:11 | Outpatient (OUT) | payer MEDICARE, SELFPAY ==
[2024-04-19 15:44] LABS: Bilirubin Urine COLOR INTERFERENCE (NEGATIVE); Blood Urine COLOR INTERFERENCE (NEGATIVE); Clarity Urine SLIGHTLY CLOUDY (CLEAR); Color Urine ORANGE (YELLOW); Glucose Urine UA COLOR INTERFERENCE mg/dL (NEGATIVE); Ketones Urine COLOR INTERFERENCE mg/dL (NEGATIVE); Leukocyte Esterase Urine COLOR INTERFERENCE (NEGATIVE); Nitrite Urine COLOR INTERFERENCE (NEGATIVE); Protein Urine COLOR INTERFERENCE mg/dL (NEG/TRACE); Specific Gravity Urine 1.015 (1.005-1.025); Urobilinogen Urine COLOR INTERFERENCE EU/dL (0.2-1.0); pH Urine COLOR INTERFERENCE (5.0-9.0)
[2024-04-19 16:10] LABS: Bacteria Urine MODERATE #/HPF (NONE SEEN); Cast Seen? NONE SEEN #/LPF (NONE SEEN); Crystals Seen? None Seen #/HPF (None Seen); Mucus Urine NONE SEEN (NONE SEEN); RBC Urine 0-2 #/HPF (0-2); Squamous Epithelial Cell Urine RARE #/LPF (NONE/RARE); Urine Culture Indicated ALREADY ORDERED; WBC Urine 20-50 #/HPF (NONE SEEN)
== END 2024-04-19 15:12 | disposition home or self-care (01) ==
LOC: LAB 15:14
PROVIDERS: PCP Internal Medicine; Visit Provider Internal Medicine
DX: R30.0 Dysuria (principal)
CPT/HCPCS: 81001; 87086; 87150; 87186

== ENCOUNTER 2024-07-05 14:03 | Outpatient (OUT) | payer MEDICARE, SELFPAY ==
[2024-07-05 14:42] LABS: Estimated Average Glucose 117 mg/dL; Glycohemoglobin A1C 5.7 % (4.5-6.2)
[2024-07-05 15:04] LABS: TSH W/ REFLEX FT4 3.846 uIU/mL (0.358-3.740)
[2024-07-05 15:31] LABS: Free T4 0.79 ng/dL (0.76-1.46)
== END 2024-07-05 14:04 | disposition home or self-care (01) ==
LOC: LAB 14:05
PROVIDERS: PCP Internal Medicine; Visit Provider Internal Medicine
DX: E03.8 Other specified hypothyroidism (principal); E11.65 Type 2 diabetes mellitus with hyperglycemia; R79.89 Other specified abnormal findings of blood chemistry
CPT/HCPCS: 36415; 83036; 84439; 84443

== ENCOUNTER 2024-07-20 13:42 | Outpatient (OUT) | payer MEDICARE, SELFPAY ==
--- NOTE | 2024-07-20 14:05 | PM.WCHP ---
Wound Care H&P: HPI History of Present Illness Narrative: Mr. Vogt is a pleasant 84-year-old gentleman with history of type 2 diabetes and neuropathy who presents for routine nail care. He complains of a callus on the lateral aspect of the left foot. He does have tingling and burning in his feet which he associates with neuropathy. He takes gabapentin for this problem. [facility] Medical History (Updated 07/20/24 @ 14:08 by MOMO Ho) Chronic osteomyelitis of right foot ?M86.671 - Other chronic osteomyelitis, right ankle and foot (ICD-10) Non-pressure chronic ulcer of other part of left foot with unspecified severity ?L97.529 - Non-pressure chronic ulcer of other part of left foot with unspecified severity (ICD-10) Hypothyroidism ?E03.9 - Hypothyroidism, unspecified (ICD-10) Acute renal insufficiency ?N28.9 - Disorder of kidney and ureter, unspecified (ICD-10) Iron deficiency anemia ?D50.9 - Iron deficiency anemia, unspecified (ICD-10) Cellulitis of foot, right ?L03.115 - Cellulitis of right lower limb (ICD-10) Diabetic ulcer of right fifth toe ?E11.621 - Type 2 diabetes mellitus with foot ulcer (ICD-10) ?L97.519 - Non-pressure chronic ulcer of other part of right foot with unspecified severity (ICD-10) HLD (hyperlipidemia) ?E78.5 - Hyperlipidemia, unspecified (ICD-10) Diabetic infection of right foot ?E11.628 - Type 2 diabetes mellitus with other skin complications (ICD-10) ?L08.9 - Local infection of the skin and subcutaneous tissue, unspecified (ICD-10) Neuropathy ?G62.9 - Polyneuropathy, unspecified (ICD-10) Fracture, ankle ?S82.899A - Other fracture of unspecified lower leg, initial encounter for closed fracture (ICD-10) Benign prostate hyperplasia ?N40.0 - Benign prostatic hyperplasia without lower urinary tract symptoms (ICD-10) Hypertension ?I10 - Essential (primary) hypertension (ICD-10) Diabetes ?E11.9 - Type 2 diabetes mellitus without complications (ICD-10) Surgical History (Updated 07/06/23 @ 11:11 by Asha Erickson NP) History of colonoscopy ?Z98.890 - Other specified postprocedural states (ICD-10) H/O rotator cuff surgery ?Z98.890 - Other specified postprocedural states (ICD-10) History of toe surgery ?Z98.890 - Other specified postprocedural states (ICD-10) History of appendectomy ?Z90.49 - Acquired absence of other specified parts of digestive tract (ICD-10) Hx of tonsillectomy ?Z90.89 - Acquired absence of other organs (ICD-10) Family History (Updated 07/06/23 @ 11:11 by Asha Erickson NP) Mother Family history of cancer Father Family history of stroke Other Family history of aneurysm Social History (Updated 07/21/23 @ 13:32 by Ness Blunt RN) Within the past year, how often did you have a drink containing alcohol: never Score interpretation: A score less than 4 is consistent with normal alcohol consumption. 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[employer] Known occupational exposures/hazards: No Highest level of school completed/degree received: Bachelor's degree Are you now , , , , never or living with a partner: Little interest or pleasure in doing things: not at all Feeling down, depressed, or hopeless: not at all Feel stressed/tense/nervous/anxious/difficulty sleeping: not at all Do you think of yourself as: straight/heterosexual Gender Identity: male Meds Home Medications and Allergies Home Medications ?Medication ?Instructions ?Recorded ?Confirmed ?Type gabapentin 300 mg capsule 300 mg PO TID 03/08/23 07/22/23 History glipizide 2.5 mg tablet, extended 2.5 mg PO QAM 03/08/23 07/22/23 History release 24 hr lisinopril 20 mg tablet 20 mg PO .qhs 03/08/23 07/22/23 History lovastatin 40 mg tablet 40 mg PO .qhs 03/08/23 07/22/23 History tamsulosin 0.4 mg capsule 0.4 mg PO Q24H 03/08/23 07/22/23 History amlodipine 5 mg tablet 5 mg PO QNOON 07/06/23 07/22/23 History antiarthritic combination no.2 900 900 mg PO DAILY 07/06/23 07/22/23 History mg tablet (glucosamine-chondroitin) aspirin 81 mg tablet,delayed 81 mg PO DAILY 07/06/23 07/22/23 History release (Adult Aspirin Regimen) multivitamin (Daily Multi-Vitamin 1 tab PO DAILY 07/06/23 07/22/23 History tablet) turmeric 400 mg capsule 400 mg PO DAILY 07/06/23 07/22/23 History cephalexin 500 mg capsule 500 mg PO BID 14 days #28 caps 07/22/23 Rx hydrocodone 5 mg-acetaminophen 325 1 tab PO Q8H PRN pain 7 days #21 07/22/23 Rx mg tablet tabs apixaban 5 mg tablet (Eliquis) 5 mg PO BID 30 days #60 tabs 01/30/24 Rx metoprolol succinate 25 mg 25 mg PO DAILY #20 tabs 01/30/24 Rx tablet,extended release 24 hr (Toprol XL) nitrofurantoin 100 mg PO BID 7 days #14 caps 03/11/24 Rx monohydrate/macrocrystals 100 mg capsule (Macrobid) Allergies Allergy/AdvReac Type Severity Reaction Status Date / Time ciprofloxacin (From Cipro) Allergy Severe Rash Verified 01/30/24 16:58 Sulfa (Sulfonamide Allergy Severe Rash Verified 01/30/24 16:58 Antibiotics) Exam Narrative: Exam Narrative: Dermatologic: Skin is diffusely dry, thin, and shiny. There is a callus over the lateral left foot, just lateral to the fifth metatarsal head. No ulceration at the base. Vascular: PT pulses are nonpalpable bilaterally, DP pulses are faintly palpable. Capillary refill is brisk. Digital hair is absent bilaterally. Ankle edema noted bilaterally. Neurologic: Protective sensation is absent, vibratory sensation absent, Achilles deep tendon reflexes absent bilaterally. Musculoskeletal: Partial amputation of left toes #2 and 4, partial amputation of right toe #4. No pain with palpation. Assessment and Plan Assessment and Plan (1) Type 2 diabetes mellitus with diabetic neuropathy, unspecified: (2) Tinea unguium: (3) Acquired absence of other left toe(s): (4) Acquired absence of other right toe(s): Plan Mr. Vogt is a pleasant 84-year-old gentleman with history of type 2 diabetes and neuropathy with previous nontraumatic toe amputations. He presents for routine nail care today. Callus was pared on the left foot. We discussed proper footcare. Follow-up in 3 months, sooner if any issues arise. Acute Procedures Podiatry Nail Debridement Class A Findings Class A findings: non-traumatic amputation of foot or integral skeletal portion thereof Class B Findings Advanced trophic changes as evidenced by any three of the following: decreased hair growth, nail changes (thickening) and skin texture (thin or shiny) Class C Findings Claudication: No Temperature changes: Yes Edema: Yes Nail debridement paresthesia (abnormal spontaneous sensations in the feet): Yes Burning: Yes Qualifies If: Qualifiers If:: A patient qualifies for nail debridement if they have: 1 class A finding (Q7) 2 class B findings (Q8) OR 1 class B & 2 class C findings in addition to a primary condition (Q9) Nail Procedure Nail Procedure Time out: Yes Nail procedure: other (Toenail debridement bilateral feet, callus paring left foot) Number of affected nails: 7 Location (toes): left and right Procedure successful: Yes Patient tolerated procedure: well and no complications Additional comments: The toenails of the patient's remaining toes were trimmed with nail nippers without incident. Callus on the lateral left foot was pared with a 15 blade without incident. No ulceration noted at the base. Band-Aid was placed over the site for minor bleeding.
--- NOTE | 2024-07-20 17:31 | PM.WCHP ---
Wound Care H&P: HPI History of Present Illness Narrative: The patient is a pleasant 84-year-old gentleman with history of type 2 diabetes and neuropathy with history of toe amputations in the past. He presents for routine nail and callus care today. [facility] Medical History (Updated 07/20/24 @ 14:08 by MOMO Ho) Chronic osteomyelitis of right foot ?M86.671 - Other chronic osteomyelitis, right ankle and foot (ICD-10) Non-pressure chronic ulcer of other part of left foot with unspecified severity ?L97.529 - Non-pressure chronic ulcer of other part of left foot with unspecified severity (ICD-10) Hypothyroidism ?E03.9 - Hypothyroidism, unspecified (ICD-10) Acute renal insufficiency ?N28.9 - Disorder of kidney and ureter, unspecified (ICD-10) Iron deficiency anemia ?D50.9 - Iron deficiency anemia, unspecified (ICD-10) Cellulitis of foot, right ?L03.115 - Cellulitis of right lower limb (ICD-10) Diabetic ulcer of right fifth toe ?E11.621 - Type 2 diabetes mellitus with foot ulcer (ICD-10) ?L97.519 - Non-pressure chronic ulcer of other part of right foot with unspecified severity (ICD-10) HLD (hyperlipidemia) ?E78.5 - Hyperlipidemia, unspecified (ICD-10) Diabetic infection of right foot ?E11.628 - Type 2 diabetes mellitus with other skin complications (ICD-10) ?L08.9 - Local infection of the skin and subcutaneous tissue, unspecified (ICD-10) Neuropathy ?G62.9 - Polyneuropathy, unspecified (ICD-10) Fracture, ankle ?S82.899A - Other fracture of unspecified lower leg, initial encounter for closed fracture (ICD-10) Benign prostate hyperplasia ?N40.0 - Benign prostatic hyperplasia without lower urinary tract symptoms (ICD-10) Hypertension ?I10 - Essential (primary) hypertension (ICD-10) Diabetes ?E11.9 - Type 2 diabetes mellitus without complications (ICD-10) Surgical History (Updated 07/06/23 @ 11:11 by Asha Erickson NP) History of colonoscopy ?Z98.890 - Other specified postprocedural states (ICD-10) H/O rotator cuff surgery ?Z98.890 - Other specified postprocedural states (ICD-10) History of toe surgery ?Z98.890 - Other specified postprocedural states (ICD-10) History of appendectomy ?Z90.49 - Acquired absence of other specified parts of digestive tract (ICD-10) Hx of tonsillectomy ?Z90.89 - Acquired absence of other organs (ICD-10) Family History (Updated 07/06/23 @ 11:11 by Asha Erickson NP) Mother Family history of cancer Father Family history of stroke Other Family history of aneurysm Social History (Updated 07/21/23 @ 13:32 by Ness Blunt RN) Within the past year, how often did you have a drink containing alcohol: never Score interpretation: A score less than 4 is consistent with normal alcohol consumption. 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 occupational exposures/hazards: No Highest level of school completed/degree received: Bachelor's degree Are you now , , , , never or living with a partner: Little interest or pleasure in doing things: not at all Feeling down, depressed, or hopeless: not at all Feel stressed/tense/nervous/anxious/difficulty sleeping: not at all Do you think of yourself as: straight/heterosexual Gender Identity: male Meds Home Medications and Allergies Home Medications ?Medication ?Instructions ?Recorded ?Confirmed ?Type gabapentin 300 mg capsule 300 mg PO TID 03/08/23 07/22/23 History glipizide 2.5 mg tablet, extended 2.5 mg PO QAM 03/08/23 07/22/23 History release 24 hr lisinopril 20 mg tablet 20 mg PO .qhs 03/08/23 07/22/23 History lovastatin 40 mg tablet 40 mg PO .qhs 03/08/23 07/22/23 History tamsulosin 0.4 mg capsule 0.4 mg PO Q24H 03/08/23 07/22/23 History amlodipine 5 mg tablet 5 mg PO QNOON 07/06/23 07/22/23 History antiarthritic combination no.2 900 900 mg PO DAILY 07/06/23 07/22/23 History mg tablet (glucosamine-chondroitin) aspirin 81 mg tablet,delayed 81 mg PO DAILY 07/06/23 07/22/23 History release (Adult Aspirin Regimen) multivitamin (Daily Multi-Vitamin 1 tab PO DAILY 07/06/23 07/22/23 History tablet) turmeric 400 mg capsule 400 mg PO DAILY 07/06/23 07/22/23 History cephalexin 500 mg capsule 500 mg PO BID 14 days #28 caps 07/22/23 Rx hydrocodone 5 mg-acetaminophen 325 1 tab PO Q8H PRN pain 7 days #21 07/22/23 Rx mg tablet tabs apixaban 5 mg tablet (Eliquis) 5 mg PO BID 30 days #60 tabs 01/30/24 Rx metoprolol succinate 25 mg 25 mg PO DAILY #20 tabs 01/30/24 Rx tablet,extended release 24 hr (Toprol XL) nitrofurantoin 100 mg PO BID 7 days #14 caps 03/11/24 Rx monohydrate/macrocrystals 100 mg capsule (Macrobid) Allergies Allergy/AdvReac Type Severity Reaction Status Date / Time ciprofloxacin (From Cipro) Allergy Severe Rash Verified 01/30/24 16:58 Sulfa (Sulfonamide Allergy Severe Rash Verified 01/30/24 16:58 Antibiotics) Exam Narrative: Exam Narrative: Derm: Toenails of remaining toes are elongated, thickened, and mycotic. Callus noted lateral to the fifth metatarsal head on the left. No ulcerative or preulcerative lesions are noted. Vascular: PT pulses are nonpalpable bilaterally. DP pulses are 1/4 bilaterally. Capillary refills less than 3 seconds in both feet. Varicosities are present. 1+ nonpitting edema noted in bilateral ankles. Digital hair is absent bilaterally. Neuro: Protective sensation absent. Vibratory sensation absent. Achilles deep tendon reflexes absent Musculoskeletal: Partial amputation of the fourth toe on the right foot. Partial amputations of the 2nd and 4th toes on the left. No pain on palpation. Assessment and Plan Assessment and Plan (1) Type 2 diabetes mellitus with diabetic neuropathy, unspecified: (2) Tinea unguium: (3) Acquired absence of other left toe(s): (4) Acquired absence of other right toe(s): Plan Mr. Vogt is a pleasant 84-year-old gentleman with history of type 2 diabetes and neuropathy with previous nontraumatic toe amputations. He presents for routine nail care today. Callus was pared on the left foot. We discussed proper footcare. Follow-up in 3 months, sooner if any issues arise.
== END 2024-07-20 13:43 | disposition home or self-care (01) ==
LOC: WC 13:42
PROVIDERS: PCP Internal Medicine; Visit Provider Physician Assistant
DX: E11.40 Type 2 diabetes mellitus with diabetic neuropathy, unspecified (principal); B35.1 Tinea unguium; Z89.422 Acquired absence of other left toe(s); Z89.421 Acquired absence of other right toe(s)
CPT/HCPCS: 11055; 11721

== ENCOUNTER 2024-09-22 08:19 | Outpatient (OUT) | payer MEDICARE, SELFPAY ==
--- OUTSIDE RECORDS SUMMARY | 2023-11-02 05:15 | XMS_ITS ---
Author Organization [facility] [place] Address [address] [place] [address] Care Team Providers Care [employer] Name Role Phone Campbell Naranjo DO Primary Care Provider Jhon Cassidy Unavailable [phone] Allergies Allergen (clinical drug ingredient) Drug/Non Drug Allergy documented on EMR Reaction Allergy Type Onset Date Status ciprofloxacin Cipro Unknown Drug Allergy Act anil Substance with sulfonamide structure and antibacterial mechanism of action (substance) Sulfa Antibiotics Unknown Drug Allergy Active REASON FOR VISIT 2 MONTH F/U FROM WOUND Medications Medication SIG (Take, Route, Fr equency, Duration) Notes Start Date End Date Status amLODIPine Besylate Active Tamsulosin HCl 0.4 MG 1 capsule Orally Once a day Active Lovastatin 40 MG 1 tablet with the ev ening meal Orally Once a day Active Lisinopril 20 MG 1 tablet Orally Once a day Active Glucosamine Active glipiZIDE ER 2.5 MG 1 tablet with breakf ast Orally Once a day Active Gabapentin 300 MG 1 capsule Orally Once a day Active Aspirin 81 MG 1 tablet Orally Once a day Active Social History Tobacco Use: Social History Observation Description Date Details (start date - stop date) Former Smoker NA - NA Tobacco Use/Smoking Question Answer Notes Patient is a former smoker How long has it been since you last smoked? 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 He is doing very well. I recommended follow-up every 2 to 3 months for routine skin and nail care. He should check his feet daily and call the office with any changes. 11/02/2023 Type 2 diabetes mellitus with foot ulcer (ICD-10 - E11.621) Plan Of Treatment Treatment Notes Assessment Notes Non-pressure chronic ulcer o f other part of right foot with other specified severity Patient is status post toe amputation bilateral feet. He is doing very well. I recommended follow-up every 2 to 3 months for routine skin and nail care. He should check his feet daily and call the office with any changes. Progress Notes * Norberto VOGTDOB:1940 (83 yo M)Acc No.[id number]:11/02/2023 Follow Up Patient: Norberto GILLIAM Provider: Marilyn Tejada DPM, MS :1940 A ge:83 Y S ex:Male Date:11/02/2023 Address:[address] [place], [place] [id number] Pcp:Campbell Naranjo, DO Check In:09:11 AM ESTCheck O ut:10:06 AM EST Subjective: * Chief Complaints: * 2 MONTH F/U FROM WOUND * HPI: G eneral: Patient follows up from wound care today. He was last seen in wound clinic on 08.31.23. He is doing well. He denies pain. States only complaint is itching between right 4th and 5th toes. He has darkened right second toenail, he is unsure of any injury. Overall he is happy with his post op course. * ROS: G eneral/Constitutional: Chills d enies. F ever d enies. W eight gain?denies. W eight loss d enies. S kin: Skin Ulcers d enies. S kin lesion(s) d enies. ? C ardiovascular: Difficulty breathing on exertion d enies. L eg cramps?denies. E brenda d enies. C hest pain d enies. R espiratory: Difficulty breathing d enies. D yspnea d enies.?Cough d enies. G astrointestinal: Diarrhea d enies. N ausea d enies. V omiting?denies. M usculoskeletal: Bone/Joint Symptoms d enies. C usp Pain d enies.?Leg cramps d enies. N eurologic: Numbness d enies. T ingling d enies . G ait abnormality d enies. ? H ematology: Anemia D enies. E asy bruising d enies. ? A ll Other Systems: Review of Systems (ROS) S ee HPI for details,All others negative except those mentioned in HPI. 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 Modified On:06/24/2022U Status:confirmed M20.41 Hammertoe of right f oot Modified On:06/24/2022U Status:confirmed L84 Callus of foot Modified On:06/24/2022U Status:confirmed E11.42 Type 2 diabetes patsy itus with diabetic polyneuropathy, without long-term current use of insulin Modified On:06/24/2022/U Status:confirmed L97.515 Non-pressure chronic ulcer of other part of right foot with muscle involvement without evidence of necrosis Modified On:04/27/2023/U Status:confirmed L97.512 Chronic ulcer of rig ht foot with fat layer exposed Modified On:04/07/2023/U Status:confirmed L97.519 Chronic ulcer of gre at toe of right foot Modified On:04/27/2023 Status:confirmed L97.512 Chronic ulcer of rig ht great toe with fat layer exposed Modified On:04/27/2023 Status:confirmed E78.5 Dyslipidemia Modified On:05/05/2023 Status:confirmed I10 BP (high blood press ure) Modified On:05/05/2023 Status:confirmed E11.9 Diabetes mellitus Modified On:05/05/2023 Status:confirmed Z79.4 Long-term insulin us e Modified On:05/05/2023 Status:confirmed D50.9 Anemia, iron deficie ncy Modified On:05/05/2023 Status:confirmed E03.9 Hypothyroidism Modified On:05/05/2023 Status:confirmed L97.518 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 * Social History: T obacco Use: T obacco Use/Smoking P atient is a f ormer smoker H ow long has it been since you last smoked??> 10 years A dditional Findings: Tobacco Non-User C urrent non-smoker * Medications: T akingamLODIPine Besylate Aspirin 81 MG Tablet Chewable 1 tablet Orally Once a day Gabapentin 300 MG Capsule 1 capsule Orally Once a day glipiZIDE ER 2.5 MG Tablet Extended Release 24 Hour 1 tablet with breakfast Orally Once a day Glucosamine Lisinopril 20 MG Tablet 1 tablet Orally Once a day Lovastatin 40 MG Tablet 1 tablet with the evening meal Orally Once a day Tamsulosin HCl 0.4 MG Capsule 1 capsule Orally Once a day Medication List reviewed and reconciled with the patientTaking amLODIPine Besylate Taking Aspirin 81 MG Tablet Chewable 1 tablet Orally Once a day Taking Gabapentin 300 MG Capsule 1 capsule Orally Once a day Taking glipiZIDE ER 2.5 MG Tablet Extended Release 24 Hour 1 tablet with breakfast Orally Once a day Taking Glucosamine Taking Lisinopril 20 MG Tablet 1 tablet Orally Once a day Taking Lovastatin 40 MG Tablet 1 tablet with the evening meal Orally Once a day Taking Tamsulosin HCl 0.4 MG Capsule 1 capsule Orally Once a day Medication List reviewed and reconciled with the patient * Allergies: S pastor AntibioticsCiprono[Allergies Verified] Objective: * Vitals: W t:224lbs, Ht: 75 in, Temp:97.3F, HR:82/min, BMI:28Index, Pain scale:01-10, Oxygen sat %:98%, Ht-cm: 190.5 cm, Wt-k.6 kg. * Examination: P odiatry Examination: S kin is intact with coapted incisions. No SOI. 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 No calf pain on squeeze. No pain out of proportion. Strength & ROM deferred. Assessment: * Assessment: 1. N on-pressure chronic ulcer of other part of right foot with other specified severity - L97.518 (Primary) 2 . T ype 2 diabetes mellitus with foot ulcer - E11.621 Plan: * Treatment: * Procedure Codes: * * Sign off status: Completed Visit Status: C HK (Check Out) true * Provider: Marilyn Tejada DPM, MS Date: 11/02/2023 Generated for Renyi viv/Nilo/Brigittesmitting on: 09/22/2024 08:25 AM EDT History and Physical Notes * Examination Category Sub-Category Detail Notes Category Not es Podiatry Examination Skin is intact with coapted incisions. No SOI. 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 No calf pain on squeeze. No pain out of proportion. Strength & ROM deferred
--- OUTSIDE RECORDS SUMMARY | 2024-01-26 05:00 | XMS_ITS ---
Author Organization [facility] in [place] Address [address] [place] [address] Care Team Providers Care Registered Phlebotomist Part Time Name Role Phone Campbell Naranjo DO Primary Care Provider Jhon Cassidy [phone] Allergies Allergen (clinical drug ingredient) Drug/Non Drug [...] Encounters Encounter Location Date Provider Diagnosis [facility] (PODIATRY) [address] [place], [place] [address] [address] 01/26/2024 Jhon Tejada Type 2 diabetes mellitus [...] Notes * Norberto VOGTDOB:1940 (84 yo M)Acc No.[id number]:01/26/2024 Nurse Visit Patient: Norberto GILLIAM Provider: Marilyn Tejada DPM, MS :1940 A ge:83 Y S ex:Male Date:01/26/2024 Address:[address] [place], [place] [address], [id number] Pcp:Campbell Naranjo, DO Check In:09:08 AM ESTCheck [...] Generated for John Paul nam/Nilo/Martínitting on: 0 09/22/2024 08:25 AM EDT
--- OUTSIDE RECORDS SUMMARY | 2024-04-27 09:40 | XMS_ITS ---
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 Name Role Phone Campbell Naranjo DO Primary Care Provider Unavaila Randa Carrillo Unavailable [phone] REASON FOR VISIT Nail Care Encounters Encounter Location Date Provider Diagnosis [facility] (PODIATRY) [address] [place] [address] [place] [address] 04/27/2024 Randa Gaston Plan Of Treatment No Information Progress Notes * Norberto VOGTDOB:1940 (84 yo M)Acc No.[id number]:04/27/2024 UNLOCKED PROGRESS NOTE Nurse Visit Patient: Norberto GILLIAM Provider: Andrew Gaston PA-C :1940 A ge:84 Y S ex:Male Date:04/27/2024 Address:[address] [place] [address] M[address] MELENDEZ [id number] Pcp:Campbell Naranjo DO Check In:01:35 PM ESTCheck O ut:02:05 PM EST Subjective: * Chief Complaints: * 1 . Nail Care. * Medical History: Objective: * Vitals: Assessment: Plan: * Treatment: * * Electronic signature of Kim Gaston PA-C on 09/22/2024 at 08:25 AM EDT Sign off status: Pending Visit Status: C HK (Check Out) * Provider: Andrew Gaston PA-C Date: 0 04/27/2024 Generated for John Paul nam/Nilo/eTransmitting on: 0 09/22/2024 08:25 AM EDT
--- OUTSIDE RECORDS SUMMARY | 2024-09-21 06:10 | XMS_ITS | Continuity of Care Document ---
Author Organization [facility] Address [address] [place] [address] Phone Care Team Providers Care Quality Technician Name Role Phone Campbell Naranjo DO Primary Care Provider Campbell Naranjo DO Attending Provider Diony Hernandez MD Attending Provider Care Teams Patient Care Team Team Status: Active Member Role Status Dates Campbell Naranjo DO Primary Care Provider Active Visit Care Team Team Status: Inactive Member Role Status Dates Campbell Naranjo DO Primary Care Provider Active Start: July 05, 2024 End: July 05, 2024 Campbell Naranjo DO Attending Provider Active Sta rt: July 05, 2024 End: July 05, 2024 Visit Care Team Team Status: Inactive Member Role Status Dates Campbell Naranjo DO Primary Care Provider Active Start: August 14, 2024 End: August 14, 2024 Diony Hernandez MD Attending Provider Activ e Start: August 14, 2024 End: August 14, 2024 Patient Care Team Team Status: Inactive Member Role Status Dates Campbell Naranjo DO Primary Care Provider Active Start: September 21, 2024 End: September 21, 2024 Campbell Naranjo DO Attending Provider Active Sta rt: September 21, 2024 End: September 21, 2024 Chief Complaint and Reason for Visit Chief Complaint Admit Date 3 month f/u-HIGH Risk July 05, 2024 9 :28am 4 month f/u August 14, 2024 10:12 am Genital Concerns-HIGH RISK September 21 9:11am Reason for Visit Admit Date Aortic stenosis, mild July 05, 2024 9 :28am Atrial flutter July 05, 2024 9:2 8am Chronic kidney disease July 05, 2024 9:28am Chronic venous insufficiency of lower ex tremity July 05, 2024 9:28am Elevated cholesterol July 05, 2024 9: 28am HTN (hypertension) July 05, 2024 9:2 8am Subclinical hypothyroidism July 05, 025 9:28am Type 2 diabetes mellitus with diabetic p olyneuropathy July 05, 2024 9:28am Type 2 diabetes mellitus with hyperglyce francisco July 05, 2024 9:28am Aortic stenosis, mild August 14, 2024 10: 12am Atrial flutter August 14, 2024 10:12 am HTN (hypertension) August 14, 2024 10:12 am Subclinical hypothyroidism August 14 10:12am Balanitis September 21, 2024 9:11 am Chronic kidney disease September 21, 2024 9 :11am Chronic venous insufficiency of lower ex tremity September 21, 2024 9:11am Dysuria September 21, 2024 9:11 am HTN (hypertension) September 21, 2024 9:11 am Subclinical hypothyroidism September 21 9:11am Type 2 diabetes mellitus with diabetic p olyneuropathy September 21, 2024 9:11am Type 2 diabetes mellitus with hyperglyce francisco September 21, 2024 9:11am Allergies, Adverse Reactions, Alerts Allergen Type Severity Reaction Last Updated Verified Status ciprofloxacin Allergy Unknown Hives September 21, 2024 9:37am Yes Active Sulfa (Sulfonamide Antibiotics) Allergy Unknown Hives September 21, 2024 9:37am Yes Active Social History Smoking Status Status Start Date End Date Date of Observa tion Never smoked tobacco (finding) March 14, 2024 3:10pm Observation Status Observation Response Date of Response Legal Sex Male (finding) Sex Assigned At Male March [id number] Family History Relationship Condition Age at Onset Recorded Date/T [place] father Heart disease Unknown Unknown mother Unknown Malignant neoplasm Unknown brother Syncope Unknown Renal failure Unknown sister Balance problems Unknown Problems Active Problems Medical Problem Onset Date Status Comments Balanitis Unknown Active Chronic venous insufficiency of lower extremity Unknown Active Medicare annual wellness vis it, subsequent Unknown Active Type 2 diabetes mellitus wit h hyperglycemia Unknown Active Type 2 diabetes mellitus wit h diabetic polyneuropathy Unknown Active Subclinical hypothyroidism Unknown Active Elevated cholesterol Unknown Active Anemia Unknown Active Atrial flutter Unknown Active Echocardiogra m: LVEF 65%, normal RV size/function, LISA, mild , RVSP 36 - 10HADs VASc = 4 (age > 75, HTN, Diabetes) Dysuria Unknown Active Chronic kidney disease Unknown Active 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 Active Overweight Unknown Active Chronic stasis dermatitis Unknown Active Aortic stenosis, mild Unknown Active Echoca rdiogram: LVEF 65%, normal RV size/function, LISA, mild , RVSP 36 - 10arotid US: <50% B/L ICA - 10/2021 Osteomyelitis of right foot 2023 Active HTN (hypertension) Unknown Active Inactive/Resolved Problems Medical Problem Onset Date Status Comments Malfunction of Smith catheter Unknown Resolved Problem List clean-up per request of Phys. EHR Cmte Increased urinary frequency Unknown Resolved Problem List clean-up per request of Phys. EHR Cmte Cellulitis Unknown Resolved Urinary hesitancy Unknown Resolved Problem Li st clean-up per request of Phys. EHR Cmte Medications Medication Status Dose Units Route Directions Qty Days St art Date Stop Date End Date Instructions Adherence Amlodipine 5 mg tablet Discont inued 5 MG PO Daily 2023 1:02pm May 21, 2023 12:03 pm Amlodipine 5 mg tablet Discont inued 0 .ROUTE .COMPLEX May 31, 2023 5:07pm August 04, 2023 11:01 am TAKE 1 TABLET BY MOUTH DAILY FOR 30 DAYS Lisinopril 20 mg tablet Discont inued 20 MG PO Daily June 17, 2023 12:03p m September 05, 2023 8:20a m Lovastatin 40 mg tablet Discont inued 40 MG PO Daily June 17, 2023 12:03p m June 04, 2024 5:09p m Tamsulosin 0.4 mg capsule Discont inued 0.4 MG PO Twice daily 180 June 17, 2023 12:04p m June 23, 2023 9:54a m Lisinopril 20 mg tablet Discont inued 0 .ROUTE .COMPLEX September 05, 2023 8:20am Octob er 2023 8:54a m TAKE 1 TABLET DAILY Tamsulosin 0.4 mg capsule Active 0 .ROUTE .COMPLEX 180 October 12, 2023 8:41am TAKE 1 CAPSULE TWICE DAILY Complies with drug therapy Gabapentin 300 mg capsule Discont inued 0 .ROUTE .COMPLEX 270 Octobe r 2023 7:29pm Janua ry 2024 8:40a m TAKE 1 CAPSULE 3 TIMES A DAY Gabapentin 300 mg capsule Active 0 .ROUTE .COMPLEX 270 Maruar y 2024 8:40am TAKE 1 CAPSULE 3 TIMES A DAY Complies with drug therapy Cephalexin 500 mg capsule Discont inued 500 MG PO Three times daily 42 14 ua 2024 1:00am May 22, 2024 9:58a m Apixaban (Eliquis) 5 mg tablet Active 5 MG PO Twice daily 180 ua 2024 10:45a m Complies with drug therapy Metoprolol Succinate 25 mg tablet extended release 24 hr Discont inued 12.5 MG PO Daily 45 90 2024 1:00am May 22, 2024 10:00 am Lisinopril 5 mg tablet Discont inued 5 MG PO Daily 30 30 ua ry 2024 1:00am June 13, 2024 4:19p m Glipizide 2.5 mg tablet extended release 24hr Active 2.5 MG PO Daily 90 May 15, 2024 1:19pm Complies with drug therapy Lovastatin 40 mg tablet Active 0 .ROUTE .COMPLEX 90 June 04, 2024 5:09pm TAKE 1 TABLET EVERY EVENING Complies with drug therapy Lisinopril 5 mg tablet Discont inued 5 MG PO Daily 90 June 13, 2024 4:18pm June 14, 2024 2:44p m Cephalexin 500 mg Capsule Discont inued 500 MG PO Q8H 21 7 2021 12:00a m Octob er 2021 5:10p m Lisinopril 20 mg tablet Discont inued 10 MG PO Daily 2021 12:00a m May 21, 2023 12:03 pm Lovastatin 40 mg tablet Discont inued 40 MG PO Daily 2021 12:00a m June 17, 2023 12:04 pm Amlodipine 2.5 mg tablet Discont inued 5 MG PO Daily 2021 12:00a m Febru 2023 1:04p m Glipizide 2.5 mg tablet extended release 24hr Discont inued 2.5 MG PO Daily 2021 12:00a m August 04, 2023 11:01 am Gabapentin 300 mg capsule Discont inued 300 MG PO Daily 2021 12:00a m August 04, 2023 10:51 am Aspirin 81 mg Capsule Active 81 MG PO Daily 2021 12:00a m Complies with drug therapy Lisinopril 20 mg tablet Discont inued 20 MG PO Daily May 21, 2023 12:01p m June 17, 2023 12:04 pm Trimethopri m 100 mg tablet Discont inued 100 MG PO Twice daily [facility] 2021 12:00a m May 21, 2023 12:03 pm Tamsulosin 0.4 mg capsule Discont inued 0.4 MG PO Twice daily [facility] 2021 12:00a m June 17, 2023 12:04 pm Amoxicillin -Pot Clavulanate 875-125 mg tablet Discont inued 1 TAB PO Twice daily May 15, 2023 1:00am May 21, 2023 12:00 pm Glucosamine Hcl 500 mg tablet Discont inued 500 MG PO Daily May 21, 2023 1:00am 2024 2:13p m administer with a meal Methylsulfo nylmethane (Msm) 1,000 mg capsule Discont inued 1000 MG PO Twice daily May 21, 2023 1:00am [facility] 2023 3:59p m Multivitami n (Daily Multi-Vitam in) tablet Active 1 TAB PO Daily May 21, 2023 1:00am Complies with drug therapy Turmeric Root-Yulisa Root Ext 150-25 mg tablet,chew able Discont inued TAB PO May 21, 2023 1:00am [facility] 2023 4:00p m Glucosamine Hcl 500 mg tablet Active 1000 MG PO Daily 2024 2:11pm administer with a meal Complies with drug therapy Gabapentin 300 mg capsule Discont inued 300 MG PO Three times daily August 04, 2023 12:00a m August 04, 2023 11:01 am Gabapentin 300 mg capsule Discont inued 300 MG PO Three times daily 270 August 04, 2023 11:00a m Octob er 2023 7:29p m Glipizide 2.5 mg tablet extended release 24hr Discont inued 2.5 MG PO Daily 90 August 04, 2023 11:00a m May 15, 2024 1:19p m Amlodipine 5 mg tablet Discont inued 5 MG PO Daily 90 August 04, 2023 11:01a m Octob er 2023 8:40a m Apixaban (Eliquis) 5 mg tablet Discont inued 5 MG PO Twice daily Count Includes [facility] er 2023 1:00am Novem neftali 2023 3:06p m Apixaban 2.5 mg tablet Discont inued 2.5 MG PO Twice daily 60 30 Novem er 2023 3:06pm Novem neftali 2023 10:27 pm Apixaban 5 mg tablet Discont inued 5 MG PO Twice daily 60 30 Count Includes [facility] er 2023 10:27p m [facility] neftali 2023 3:57p m Apixaban (Eliquis) 2.5 mg tablet Discont inued 2.5 MG PO Twice daily [facility] er 2023 1:00am Febru [email or web address] 2:13p m Lisinopril 10 mg tablet Discont inued 10 MG PO Twice daily [facility] er 2023 1:00am Febru [email or web address] 2:13p m Turmeric Root Extract 500 mg tablet Active 750 MG PO Daily [facility] er 2023 1:00am Complies with drug therapy Nitrofurant oin Monohyd/M-C ryst (Macrobid) 100 mg capsule Discont inued 100 MG PO Twice daily [facility] er 2023 1:00am Febr [email or web address] 2:12p m must administer with a meal/food Lisinopril 10 mg tablet Discont inued 20 MG PO Daily 2024 2:10pm Febr [email or web address] 3:02p m Apixaban (Eliquis) 2.5 mg tablet Discont inued 5 MG PO Twice daily 2024 2:12pm Febru 2024 3:03p m Lisinopril 5 mg tablet Discont inued 5 MG PO Daily August 14, 2024 12:00a m August 14, 2024 10:56 am Lisinopril 5 mg tablet Active 5 MG PO Daily 90 90 August 14, 2024 10:55a m Complies with drug therapy Metoprolol Succinate 25 mg tablet extended release 24 hr Active 25 MG PO Daily May 22, 2024 9:58am Complies with drug therapy Tamsulosin 0.4 mg capsule Discont inued 0.4 MG PO Daily at bedtime June 23, 2023 9:53am October 12, 2023 8:41a m Amlodipine 5 mg tablet Discont inued 5 MG PO Daily May 31, 2023 12:00a m May 31, 2023 5:07p m Vitamins A,C,E-Zinc- Copper (Preservisi on Areds) 4,296 mcg-226 mg-90 mg capsule Active 1 CAP PO Twice daily Octobe r 2023 12:00a m Complies with drug therapy Lisinopril 20 mg tablet Discont inued 10 MG .ROUTE Twice daily r 2023 8:41am Decem 2023 3:59p m 10 mg twice daily; Apixaban (Eliquis) 5 mg tablet Discont inued 5 MG PO Twice daily 2024 1:00am u 2024 2:59p m Metoprolol Succinate 25 mg tablet extended release 24 hr Discont inued 25 MG PO Daily 90 2024 1:00am Febru 2024 4:42p m Apixaban (Eliquis) 5 mg tablet Discont inued 5 MG PO Twice daily 180 2024 1:00am Febru 2024 10:45 am Clotrimazol e-Betametha sone 1-0.05 % cream Active 1 APPLIC TOPICA L Twice daily September 21, 2024 12:00a m Complies with drug therapy Immunizations Immunization Event Date Not Given Reason Dose Number Nozzle Worker Lot Number Vaccine Information Statement (VIS) Detail Administration Location DTap, unspecified January 28, 2012 Fluzone TIV High-Dose [id number] December 15, 2023 [id number] A [facility] influenza, unspecified formulation March 16, 2016 influenza, unspecified formulation December 30, 2016 influenza, unspecified formulation January 14, 2018 influenza, unspecified formulation January 09, 2020 influenza, unspecified formulation December 10, 2020 influenza, unspecified formulation December 19, 2021 influenza, unspecified formulation December 01, 2022 Pneumococcal Conjugate Vaccine, 13 valent May 01, 2015 Pneumococcal Polysacc. Vaccine, 23 valent May 18, 2011 Pneumococcal Polysacc. Vaccine, 23 valent January 20, 2012 Tetanus, Diphtheria adult, 5 Lf pres free abs December 28, 2012 Relevant Diagnostic Tests and/or Laboratory Data Laboratory Results Test Collection Date/Time Result Date/Time Result Interpretation Reference Range Result Comment Performing Site Free Thyroxine July 05, 2024 2:15pm July 05, 2024 2:15pm 0.79 ng/dL 0.76-1.46 Thyroid Stimulati ng Hormone 3rd Gen July 05, 2024 2:15pm July 05, 2024 2:15pm 3.846 u[iU]/m L Above high normal 0.358-3.74 0 Estimated Average Glucose July 05, 2024 2:15pm July 05, 2024 2:15pm 117 mg/dL Hemoglobi n A1c July 05, 2024 2:15pm July 05, 2024 2:15pm 5.7 % 4.5-6.2 ADA RECOMMENDED LIMIT 4.0 - 6.0ADA THERAPEUTIC TARGET < 7.0ACTION SUGGESTED> 7.0 Vital Signs Vital Reading Result Reference Range Collection Date/Time Height 75 [in_i] July 05 9:30am Weight 102.96 kg July 05 9:30am Heart Rate 60 /min 60-100 July 05 9:38am Respiratory rate 12 /min 12-24 July 05, 2024 9:30am Oxygen saturation by Pulse oximetry 98 % 95-100 July 05, 2024 9:3 0am BP Systolic 139 mm[Hg] 100-140 July 05 9:38am BP Diastolic 89 mm[Hg] 60-100 July 05 9:38am BMI (Body Mass Index) 28.3 kg/m2 July 05, 2024 9:30am Height 75 [in_i] August 14, 2024 10:27am Weight 102.05 kg August 14, 2024 10:27am Heart Rate 50 /min 60-100 August 14, 2024 10:27am Respiratory rate 18 /min 12-August 14, 10:27am BP Systolic 162 mm[Hg] 100-140 August 14, 2024 10:27am BP Diastolic 72 mm[Hg] 60-100 August 14, 2024 10:27am BMI (Body Mass Index) 28.1 kg/m2 August 142024 10:27am Height 75 [in_i] September 21, 2024 9:36am Weight 100.30 kg September 21, 2024 9:36am Heart Rate 52 /min 60-100 September 21, 2024 9:36am Respiratory rate 12 /min -September 21, 2024 9:36am Oxygen saturation by Pulse oximetry 98 % 95-100 September 21, 2024 9:36 am BP Systolic 163 mm[Hg] 100-140 September 21, 2024 9:36am BP Diastolic 74 mm[Hg] 60-100 September 21, 2024 9:36am BMI (Body Mass Index) 27.6 kg/m2 September 122024 9:36am Advance Directives Advance Directive Response Recorded Date/ Time Advance Directives No November 6:09pm Insurance Providers Guarantor Norberto Vogt Address [address] [place] [id number] Contact Info. Home Phone: Payer Policy Id Subscriber's Name Subscriber Id Effectiv e Date Expiration Date Calli VALENCIA [id number] Norberto Vogt [id number] Encounters Encounter Location(s) Arrival/Admit Date Discharge/Depart Date Provider(s) Departed Physician/Prov ider Office Visit -[facility] July 05, 2024 9:28am July 05, 2024 10:05am Campbell Naranjo DO Departed Physician/Prov ider Office Visit -[facility] August 14, 2024 10:12am August 14, 2024 10:55am Diony Hernandez MD Departed Physician/Prov ider Office Visit -[facility] September 21, 2024 9:11am September 21, 2024 10:09am Campbell Naranjo , Recent Diagnosis Onset Date Admit Date Aortic stenosis, mild Unknown June 9:28am Atrial flutter Unknown July 05, 2024 9:28am Chronic kidney disease Unknown June 9:28am Chronic venous insufficiency of lower extremity Unknown July 05, 2024 9:28am Elevated cholesterol Unknown July 05, 2024 9:28am HTN (hypertension) Unknown July 05, 2 025 9:28am Subclinical hypothyroidism Unknown July 05, 2024 9:28am Type 2 diabetes mellitus wit h diabetic polyneuropathy Unknown July 05, 2024 9:28am Type 2 diabetes mellitus with hyperglycemia Unkn own July 05, 2024 9:28am Aortic stenosis, mild Unknown August 14, 2024 10:12am Atrial flutter Unknown August 14, 2024 1 0:12am HTN (hypertension) Unknown August 14 10:12am Subclinical hypothyroidism Unknown August 14, 2024 10:12am Balanitis Unknown September 21, 2024 9:11am Chronic kidney disease Unknown September 9:11am Chronic venous insufficiency of lower extremity Unknown September 21, 2024 9:11am Dysuria Unknown September 21, 2024 9:11am HTN (hypertension) Unknown September 21 9:11am Subclinical hypothyroidism Unknown September 21, 2024 9:11am Type 2 diabetes mellitus wit h diabetic polyneuropathy Unknown September 21, 2024 9:11am Type 2 diabetes mellitus with hyperglycemia Unkn own September 21, 2024 9:11am Assessments Diagnosis Onset Date Resolution Status Admit Date Aortic stenosis, mild acute Apr il 2024 9:28am Atrial flutter acute June 9:28am Chronic kidney disease acute Ap ril 2024 9:28am Chronic venous insufficiency of lower extremity acute July 05, 2024 9:28am Elevated cholesterol acute Apri l 2024 9:28am HTN (hypertension) acute July 05, 2024 9:28am Subclinical hypothyroidism acute July 05, 2024 9:28am Type 2 diabetes mellitus wit h diabetic polyneuropathy acute July 052024 9:28am Type 2 diabetes mellitus wit h hyperglycemia acute July 05, 2024 9:28am Aortic stenosis, mild acute [place] e 2024 10:12am Atrial flutter acute August 14, 2024 10:12am HTN (hypertension) acute August 142024 10:12am Subclinical hypothyroidism acute August 14, 2024 10:12am Balanitis acute September 21 9:11am Chronic kidney disease acute 2024 9:11am Chronic venous insufficiency of lower extremity acute September 21, 2024 9:11am Dysuria acute September 21 9:11am HTN (hypertension) acute September 122024 9:11am Subclinical hypothyroidism acute September 21, 2024 9:11am Type 2 diabetes mellitus wit h diabetic polyneuropathy acute September 9:11am Type 2 diabetes mellitus wit h hyperglycemia acute September 21, 2024 9:11am Plan of Treatment Author Campbell Naranjo [facility] Authored July 05, 2024 10: 19am Ventricular rate of 142 bpm. Spontaneously converted to NSR during ER visit CHADs VASc = 4 (age > 75, HTN, Diabetes) Echocardiogram: LVEF 65%, normal RV size/function, LISA, mild , RVSP 36 - 12/2023 Continue Eliquis without interruption (samples given) Echo: LVEF 65%, LISA, normal RV size/function, RVSP 33 : - ALPHONSE 1.8 cm2 - gradient 15/9 mmHg - velocity 1.99 m/s Denies CP but does have symptoms or tachycardia and lightheadedness - monitor for now I have instructed this patient to consume a healthy, low-fat, low-salt diet. I have also encouraged them to continue exercise with weight loss to achieve/maintain a BMI < 30. I have instructed this patient on the correct procedure for obtaining home BP measurements: - rest for 5 minutes w/o talking. - positioned w/ feet on floor and arms supported. - average best 2/3 readings w/ goal < 135/85. - update office w/ home readings in 2 weeks. Continue Metoprolol bid without interruption - stopped Lisinopril - Tamsulosin may be contributing to symptoms - checking BP in afternoon I have instructed this patient to follow a comprehensive diabetic treatment plan. I have also instructed them to check their feet daily for calluses and nonhealing ulcers. I have instructed them to have a yearly dilated eye examination. I have reviewed their treatment goals: SBP less than 130, LDL less than 100, FBS less than 140, A1C less than 7%. I have instructed them to maintain a home BS log and bring the results to each of their office visits for review. I have explained the importance of routine monitoring of their A1C, Microalbumin and Lipids. I have explained the benefits of well controlled diabetes in preventing micro and macrovascular complications. Continue Glipizide without interruption A1C < 6% I have instructed the patient to inspect their feet daily for cuts and calluses. I have recommended shoes and inserts to prevent callus formation. I have reviewed fall precautions. At this time, there are no ulcerations or calluses. He continues w/ swelling, which may continue life long f/u Podiatry on regular basis I instructed this patient on the benefits of adequate control of hypertension and diabetes, if appropriate. I have also instructed them to avoid use of NSAIDs due to the adverse effects on renal function. I instructed them on adequate fluid balance and to consume at least 48 oz of fluids daily. I also instructed them to monitor for an unexplained increase in weight and lower extremity edema. They have been instructed to notify the office for any changes or concerns. Microalbumin/creatinine = 12.8 GFR = 54 I have instructed this patient on a low fat, high fiber diet and exercise. I have discussed the primary and secondary prevention benefits attributed to lowering LDL cholesterol. I have also discussed the medical treatment of elevated cholesterol, which is based on the 10 year ASCVD risk. Continue Lovastatin without interruption I have instructed this patient to avoid salt and elevate their lower extremities. I have also recommended use of support stockings. I instructed them to inspect their legs and feet daily for blisters and ulcerations. Repeat TSH improved FT4 remains normal TPO normal He has subclinical hypothyroidism. I do not recommend treatment unless he is symptomatic or FT4 is suppressed or TSH > 10 Author Diony [facility] Authored August 14, 2024 11:52 am # Paroxysmal atrial flutter - First diagnosed in [facility] on 01/30/24, and confirmed on Zio patch 02/2024. He has no palpitations. Compliant with Eliquis BID. # Subclinical hypothyroidism - On labs 04/05/24. He now has afternoon fatigue, consider further workup given symptoms now # Positional dizziness - Ongoing x3-4 years. Now improved per patient report. May be related to alpha-1 antagonist therapy (Flomax). # HTN well-controlled. BP log reviewed and stable. # Mild aortic stenosis on echo - No intervention needed. 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 EKG 03/11/2024 11:38 PM at [facility] shows sinus tachycardia with one PVC (was read as possible SVT). Echo 12/30/2023 at [facility] EF 65% with mild diastolic dysfunction, normal RV size and function, mild biatrial dilation, mild aortic stenosis. EKG 03/14/2024 sinus rhythm, first-degree AV block, 71 bpm, no ST-T abnormalities. Zio patch monitor 03/14/2024 - 03/28/2024 - Baseline rhythm is sinus rhythm. Average 70 bpm, range 50-119 bpm. Rare PACs and PVCs. The monitor was positive for atrial fibrillation/flutter, 1% burden, longest duration 2 hours 3 minutes, heart rate during AF/AFL average 99 bpm, amount of AF/AFL above 110 bpm was 11%. - Cont Eliquis and BB for AFib. - Cont Metoprolol 25mg daily and Lisinopril 5mg daily for BP. Continue BP log. - Fatigue: Unlikely it is related to his HTN given that his blood pressure stays well-controlled. Consider additional work up with PCP for subclinical hypothyroidism. Stay well hydrated. Increase physical activity. - Follow up in 6 months with GIANCRALO Holbrook. Author Campbell Naranjo [facility] Authored September 21, 2024 10:0 6am I have instructed this patie nt to consume a healthy, low-fat, low-salt diet. I have also encouraged them to continue exercise with weight loss to achieve/maintain a BMI < 30. I have instructed this patient on the correct procedure for obtaining home BP measurements: - rest for 5 minutes w/o talking. - positioned w/ feet on floor and arms supported. - average best 2/3 readings w/ goal < 135/85. - update office w/ home readings in 2 weeks. Continue Metoprolol bid without interruption - stopped Lisinopril - Tamsulosin may be contributing to symptoms - checking BP in afternoon I have instructed the patient to inspect their feet daily for cuts and calluses. I have recommended shoes and inserts to prevent callus formation. I have reviewed fall precautions. At this time, there are no ulcerations or calluses. He continues w/ swelling, which may continue life long f/u Podiatry on regular basis I have instructed this patient to follow a comprehensive diabetic treatment plan. I have also instructed them to check their feet daily for calluses and nonhealing ulcers. I have instructed them to have a yearly dilated eye examination. I have reviewed their treatment goals: SBP less than 130, LDL less than 100, FBS less than 140, A1C less than 7%. I have instructed them to maintain a home BS log and bring the results to each of their office visits for review. I have explained the importance of routine monitoring of their A1C, Microalbumin and Lipids. I have explained the benefits of well controlled diabetes in preventing micro and macrovascular complications. Continue Glipizide without interruption A1C < 6% I instructed this patient on the benefits of adequate control of hypertension and diabetes, if appropriate. I have also instructed them to avoid use of NSAIDs due to the adverse effects on renal function. I instructed them on adequate fluid balance and to consume at least 48 oz of fluids daily. I also instructed them to monitor for an unexplained increase in weight and lower extremity edema. They have been instructed to notify the office for any changes or concerns. Microalbumin/creatinine = 12.8 GFR = 54 I have instructed this patient to avoid salt and elevate their lower extremities. I have also recommended use of support stockings. I instructed them to inspect their legs and feet daily for blisters and ulcerations. Repeat TSH improved FT4 remains normal TPO normal He has subclinical hypothyroidism. I do not recommend treatment unless he is symptomatic or FT4 is suppressed or TSH > 10 Future Tests Future scheduled test information is unavailable Pending Tests Pending diagnostic test information is unavailable Future Visits Future appointment information is unavailable Referrals to Other Providers Referral information is unavailable Future Procedures Procedure Name Ordered Date Scheduled Date Complete Blood Count Auto Diff September 21, 2024 1 0:03am Urine Culture September 21, 2024 9:51am Methylmalonic Acid September 21, 2024 10:03am Thyroid Stim Hormone w/Rflx September 21, 2024 10:0 3am Urinalysis September 21, 2024 9:51am Future Medications Future medication information is unavailable Patient Instructions Patient instructions are unavailable
--- OUTSIDE RECORDS SUMMARY | 2024-09-21 10:09 | XMS_ITS | Continuity of Care Document ---
Author Organization [facility] Address [address] [place] [address] Phone Care Team Providers Care Border Police Name Role Phone Campbell Naranjo DO Primary Care Provider Campbell Naranjo DO Attending Provider Care Teams Patient Care Team Team Status: Active Member Role Status Dates Campbell Naranjo DO Primary Care Provider Active Patient Care Team Team Status: Inactive Member Role Status Dates Campbell Naranjo DO Primary Care Provider Active Start: September 21, 2024 End: September 21, 2024 Campbell Naranjo DO Attending Provider Active Sta rt: September 21, 2024 End: September 21, 2024 Chief Complaint and Reason for Visit Chief Complaint Admit Date Genital Concerns-HIGH RISK September 21 9:11am Reason for Visit Admit Date Balanitis September 21, 2024 9:11 am Chronic [...] size/function, LISA, mild , RVSP 36 - 10/4CHADs VASc = 4 (age > 75, HTN, Diabetes) Dysuria Unknown Active Chronic kidney disease Unknown Active 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 Active Overweight Unknown Active Chronic stasis dermatitis Unknown Active Aortic stenosis, mild Unknown Active Echoca rdiogram: LVEF 65%, normal RV size/function, LISA, mild , RVSP 36 - 10/4Carotid US: <50% B/L ICA - 10/2021 Osteomyelitis [...] tablet Discont inued 40 MG PO Daily 90 June 17, 2023 12:03p m June 04, [...] Active 5 MG PO Twice daily 180 2024 10:45a m Complies with drug therapy Metoprolol Succinate 25 mg tablet extended release 24 hr Discont inued 12.5 MG PO Daily 45 90 2024 1:00am May 22, 2024 10:00 am Lisinopril 5 mg tablet Discont inued 5 MG PO Daily 30 30 ua 2024 1:00am June 13, 2024 4:19p m Glipizide 2.5 mg tablet extended release 24hr Active 2.5 MG PO Daily 90 May 15, 2024 1:19pm Complies with drug therapy Lovastatin 40 mg tablet Active 0 .ROUTE .COMPLEX June 04, 2024 5:09pm TAKE 1 TABLET EVERY EVENING Complies with drug therapy Lisinopril 5 mg tablet Discont inued 5 MG PO Daily 90 June 13, 2024 4:18pm June 14, 2024 2:44p m Cephalexin 500 mg Capsule Discont inued 500 MG PO Q8H 21 7 Nov 2021 12:00a m Octob er 2021 5:10p m Lisinopril 20 mg tablet Discont inued 10 MG PO Daily 2021 12:00a m May 21, 2023 12:03 pm Lovastatin 40 mg tablet Discont inued 40 MG PO Daily 2021 12:00a m June 17, 2023 12:04 pm Amlodipine 2.5 mg tablet Discont inued 5 MG PO Daily Nov 2021 12:00a m Febru [email or web address] 1:04p m Glipizide 2.5 mg tablet extended release 24hr Discont inued 2.5 MG PO Daily Nov 2021 12:00a m August 04, 2023 11:01 am Gabapentin 300 mg capsule Discont inued 300 MG PO Daily Nov 2021 12:00a m August 04, 2023 10:51 am Aspirin 81 mg Capsule Active 81 MG PO Daily Nov 2021 12:00a m Complies with drug therapy Lisinopril 20 mg tablet Discont inued 20 MG PO Daily May 21, 2023 12:01p m June 17, 2023 12:04 pm Trimethopri m 100 mg tablet Discont inued 100 [facility] 12:00a m May 21, 2023 12:03 pm Tamsulosin 0.4 mg capsule Discont inued 0.4 MG PO Twice daily [facility] r 2021 12:00a m June 17, 2023 12:04 pm Amoxicillin -Pot Clavulanate 875-125 mg tablet Discont inued 1 TAB PO Twice daily May 15, 2023 1:00am May 21, 2023 12:00 pm Glucosamine Hcl 500 mg tablet Discont inued 500 MG PO Daily May 21, 2023 1:00am Febru 2024 2:13p m administer with a meal Methylsulfo nylmethane (Msm) 1,000 mg capsule Discont inued 1000 MG PO Twice daily May 21, 2023 1:00am Dece neftali 2023 3:59p m Multivitami n (Daily Multi-Vitam in) tablet Active 1 TAB PO Daily May 21, 2023 1:00am Complies with drug therapy Turmeric Root-Yulisa Root Ext 150-25 mg tablet,chew able Discont inued TAB PO May 21, 2023 1:00am Dece neftali 2023 4:00p m Glucosamine Hcl 500 mg [...] Discont inued 5 MG PO Twice daily Novem er 2023 1:00am [facility] neftali 2023 3:06p m Apixaban 2.5 mg tablet Discont inued 2.5 MG PO Twice daily 60 30 Novemb er 2023 3:06pm Novem neftali 2023 10:27 pm Apixaban 5 mg tablet Discont inued 5 MG PO Twice daily 60 30 Novemb er 2023 10:27p m Dece neftali 2023 3:57p m Apixaban (Eliquis) 2.5 mg tablet Discont inued 2.5 MG PO Twice daily Dece er 2023 1:00am Febru ciara 2024 2:13p m Lisinopril 10 mg tablet Discont inued 10 MG PO Twice daily Dece er 2023 1:00am Febru [email or web address] 2:13p m Turmeric Root Extract 500 mg tablet Active 750 MG PO Daily Decemb er 2023 1:00am Complies with drug therapy Nitrofurant oin Monohyd/M-C ryst (Macrobid) 100 mg capsule Discont inued 100 MG PO Twice daily Dece er 2023 1:00am Febru [email or web address] 2:12p m must administer with a meal/food Lisinopril 10 mg tablet Discont inued 20 MG PO Daily 2024 2:10pm Febru [email or web address] 3:02p m Apixaban (Eliquis) 2.5 mg tablet Discont inued 5 MG PO Twice daily Februa 2024 2:12pm Febru [email or web address] 3:03p m Lisinopril 5 mg tablet Discont inued 5 MG PO Daily August 14, 2024 12:00a m August 14, 2024 10:56 am Lisinopril 5 mg tablet Active 5 MG PO Daily 90 August 14, 2024 10:55a m Complies [...] .ROUTE Twice daily r 2023 8:41am Decem neftali 2023 3:59p m 10 mg twice daily; Apixaban (Eliquis) 5 mg tablet Discont inued 5 MG PO Twice daily ua 2024 1:00am Febru [email or web address] 2:59p m Metoprolol Succinate 25 mg tablet extended release 24 hr Discont inued 25 MG PO Daily 90 90 2024 1:00am Febru [email or web address] 4:42p m Apixaban (Eliquis) 5 mg tablet Discont inued 5 MG PO Twice daily 180 90 2024 1:00am Febru [email or web address] 10:45 am Clotrimazol e-Betametha sone 1-0.05 % cream Active 1 APPLIC TOPICA L Twice daily 15 September 21, 2024 12:00a m Complies with drug therapy Immunizations Immunization Event Date Not Given Reason Dose Number Geophysical E Logger Lot Number Vaccine Information Statement (VIS) Detail Administration Location DTap, unspecified January 28, 2012 Fluzone TIV High-Dose [id number] December 15, 2023 [id number] A [facility] influenza, unspecified formulation March 16, 2016 influenza, [...] Lf pres free abs December 28, 2012 Vital Signs Vital Reading Result Reference Range Collection Date/Time Height 75 [in_i] September 21, 2024 9:36am Weight 100.30 kg September 21, 2024 9:36am Heart Rate 52 /min 60-100 September 21, 2024 9:36am Respiratory rate 12 /min 12-24 September 21, 2024 9:36am Oxygen saturation by Pulse oximetry 98 % 95-10 0 September 21, 2024 9:36am BP Systolic 163 mm[Hg] 100-140 September 21, 2024 9:36am BP Diastolic 74 mm[Hg] 60-100 September 21, 2024 9:36am BMI (Body Mass Index) 27.6 kg/m2 September 122024 9:36am Advance Directives Advance Directive Response Recorded Date/ Time Advance Directives No November 6:09pm Insurance Providers Guarantor Norberto Vogt Address [address] [place] [id number] Contact Info. Home Phone: Payer Policy Id Subscriber's Name Subscriber Id Halyeyiv e Date Expiration Date Calli VALENCIA [id number] Norberto Vogt [id number] Encounters Encounter Location(s) Arrival/Admit Date Discharge/Depart Date Provider(s) Departed Physician/Prov ider [facility] September 21, 2024 9:11am September 21, 2024 10:09am Campbell Naranjo , Recent Diagnosis Onset Date Admit Date Balanitis Unknown September 21, 2024 9:11am Chronic [...] Diagnosis Onset Date Resolution Status Admit Date Balanitis acute September 21 9:11am Chronic kidney disease acute Ju 2024 9:11am Chronic venous insufficiency of lower extremity acute September 21, 2024 9:11am Dysuria acute September 21 9:11am HTN (hypertension) acute September 122024 9:11am Subclinical hypothyroidism acute September 21, 2024 9:11am Type 2 diabetes mellitus wit h diabetic polyneuropathy acute September 9:11am Type 2 diabetes mellitus wit h hyperglycemia acute September 21, 2024 9:11am Plan of Treatment Author Campbell Naranjo [facility] Authored September 21, 2024 10:0 6am [...]
--- OUTSIDE RECORDS SUMMARY | 2024-09-22 08:26 | XMS_ITS | Clinical Summary ---
Author Organization [facility] Address [address] [place] [address] Care Team Providers Care Forging Machine Hand Name Role Phone Unavailable Primary Care Provider Unavailabl e Social History Tobacco Use Types Packs/Day Years Used Date Smoking Tobacco: Never Assessed Sex and Gender Information Value Date Recorded Sex Assigned at Not on file Legal Sex Male 10:46 PM EDT Gender Identity Not on file Sexual Orientation Not on file Plan of Treatment Health Maintenance Due Date Last Done Comments Medicare Annual Wellness (AWV) 1938 Depression Screening 1950 Adult Tetanus 1960 Pneumococcal Vaccine: 50+ Ye ars (1 of 1 - PCV) 1988 Zoster Vaccines (1 of 2) 1988 Fall Risk Screening 2003 COVID-19 Vaccine ( - 2023-2 5 season) 2023 Influenza Vaccine (#1) 2024 HIB Vaccines Aged Out No longer eligi ble based on patient's age to complete this topic HPV Vaccines Aged Out No longer eligi ble based on patient's age to complete this topic IPV Vaccines Aged Out No longer eligi ble based on patient's age to complete this topic Meningococcal B Vaccine Aged Out No l onger eligible based on patient's age to complete this topic Meningococcal Vaccine Aged Out No alma cheryl eligible based on patient's age to complete this topic Rotavirus Vaccines Aged Out No longer eligible based on patient's age to complete this topic Insurance MEDICARE
--- OUTSIDE RECORDS SUMMARY | 2024-09-22 08:26 | XMS_ITS | Encounter Summary ---
Author Organization [facility] Address [address] [place] [address] Care Team Providers Care Oil Inspector Name Role Phone Campbell Naranjo Primary Care Provider [phone] Source Comments In the event this information is protected by the Federal Confidentiality of Alcohol and Drug AbusePatient Records regulations: The Federal rules restrict any use of the information to criminally investigate or prosecute any alcohol or drug abuse patient.[facility] Encounter Details Date Type Department Care Team (Late st Contact Info) Description 04/19/2024 Patient Msg Urology [address] [place], [place] [id number] Caro Milian, WATER/WASTEWATER ENGINEER.GRAVURE PRINTING MACHINIST [address] [place] [address] Appointment Request Social History Tobacco Use Types Packs/Day Years Used Date Smoking Tobacco: Former Cigarettes 1.5 14 0 03/15/1957 - 03/15/1971 Smokeless Tobacco: Never Alcohol Use Standard Drinks/Week Comments Yes 0 (1 standard drink = 0.6 oz pur e alcohol) social Area Deprivation Index Answer Date Osmar rded National Score (1-100), lower number is lower ri sk 61 07/28/2022 State Score (1-10), lower number is lower risk 4 07/28/2022 Data from: https://www.neighborhoodatlas.medicine.[facility].edu/. Last address used for calculation [address] 07/28/2022 Sex and Gender Information Value Date Recorded Sex Assigned at Not on file Legal Sex Male 8:28 AM EST Gender Identity Not on file Sexual Orientation Not on file documented as of this encounter Plan of Treatment Upcoming Encounters Date Type Department Care Team (Late st Contact Info) Description 10/24/2024 3:00 PM EDT Office Visit Urology [address] [place] [address] Caro Milian, WATER/WASTEWATER ENGINEER.GRAVURE PRINTING MACHINIST [address] [place] [address] 6 month follow up documented as of this encounter Visit Diagnoses Not on filedocumented in this encounter Care Teams Oil Inspector Relationship Specialty Start Date End Date Campbell Naranjo DO [address] [place] [address] PCP - General Internal Medicine 11/26/21 documented as of this encounter
--- OUTSIDE RECORDS SUMMARY | 2024-09-22 08:26 | XMS_ITS | Encounter Summary ---
Author Organization [facility] Address [address] [place] [address] Care Team Providers Care Automotive Lube Technician Name Role Phone Campbell Naranjo Primary Care Provider [phone] Source Comments In the event this information is protected by the Federal Confidentiality of Alcohol and Drug AbusePatient Records regulations: The Federal rules restrict any use of the information to criminally investigate or prosecute any alcohol or drug abuse patient.[facility] Encounter Details Date Type Department Care Team (Late st Contact Info) Description 03/03/2024 Get Medical Advice Urology [address] [place] [address] Caro Milian, FACILITY SPECIALIST.BEVEL FACE STONER AND POLISHER [address] [place], [place] [phone] Bladder issues Social History Tobacco Use Types Packs/Day Years [...] is lower risk 4 07/28/2022 Data from: https://www.neighborhoodatlas.medicine.[facility]/. Last address used for calculation [address] 07/28/2022 Sex and Gender Information Value Date Recorded Sex Assigned at Not on file Legal Sex Male 8:28 AM EST Gender Identity Not on file Sexual Orientation Not on file documented as of this encounter Miscellaneous Notes * Telephone Encounter - Sonia Nguyen LPN - 03/03/2024 11:11 AM EST PLAN: (Management Options): AUA, PVR today Encourage to increase water Encourage better BM pt stated that will take miralax once starting to go will take metamucil Standing order for urine place will get only if symptomatic Cont flomax PCP is ordering Rto 3 months for evaluation of BPH w obs/luts, AUA, PVR PRN if symptomatic documented in this encounter Plan of Treatment Upcoming Encounters Date Type Department Care Team (Late st Contact Info) Description 10/24/2024 3:00 PM EDT Office Visit Urology [address] [place], [place] [id number] Caro Milian, FACILITY SPECIALIST.BEVEL FACE STONER AND POLISHER [address] [place] [address] 6 month follow up documented as of this encounter Visit Diagnoses Not on filedocumented in this encounter Care Teams Automotive Lube Technician Relationship Specialty Start Date End Date Campbell Naranjo DO [address] [place] [address] PCP - General Internal Medicine 11/26/21 documented as of this encounter
--- OUTSIDE RECORDS SUMMARY | 2024-09-22 08:26 | XMS_ITS | Encounter Summary ---
Author Organization [facility] Address [address] [place] [address] Care Team Providers Care Debt Counselor Name Role Phone Campbell Naranjo Primary Care Provider [phone] Source Comments In the event this information is protected by the Federal Confidentiality of Alcohol and Drug AbusePatient Records regulations: The Federal rules restrict any use of the information to criminally investigate or prosecute any alcohol or drug abuse patient.[facility] Encounter Details Date Type Department Care Team (Late st Contact Info) Description 12/24/2021 Get Medical Advice Urology [address] [place] [address] Leonard Dugan MD [address] [place], [place] [id number] Bladder Info Social History Tobacco Use Types Packs/Day Years Used Date Smoking Tobacco: Former Cigarettes 1.5 14 0 03/15/1957 - 03/15/1971 Smokeless Tobacco: Never Alcohol Use Standard Drinks/Week Comments Yes 0 (1 standard drink = 0.6 oz pur e alcohol) social Sex and Gender Information Value Date Recorded Sex Assigned at Not on file Legal Sex Male 8:28 AM EST Gender Identity Not on file Sexual Orientation Not on file COVID-19 Exposure Response Date Recorded In the last 10 days, have yo u been in contact with someone who was confirmed or suspected to have Coronavirus/COVID-19? No / Unsure 12/16/2021 2:33 PM EDT documented as of this encounter Miscellaneous Notes * Telephone Encounter - Leonard Dugan MD - 12/29/2021 12:21 AM EDT Please call patient: if dizzy, stop Flomax For blood in urine repeat urine culture call for results and update us on blood in urine and how much and how often office visit as scheduled Leonard Dugan MD documented in this encounter Plan of Treatment Upcoming Encounters Date Type Department Care Team (Late st Contact Info) Description 10/24/2024 3:00 PM EDT Office Visit Urology [address] [place], [place] [id number] Caro Milian, PIN STICKER.ACCOUNTS PAYABLE PROCESSOR [address] [place] [address] 6 month follow up documented as of this encounter Results * URINALYSIS, WITH MICROSCOPIC (01/13/2022 11:34 AM EDT) Color Light Yellow Yellow 01/13/2022 7:16 PM EDT [facility] Clarity Clear Clear 01/13/2022 7:16 PM EDT [facility] Glucose, Urine Negative Negative 01/13/2022 7:16 PM EDT [facility] Bilirubin, Urine Negative Negative 01/14/20 7:16 PM EDT [facility] Ketones, Urine Negative Negative 01/13/2022 7:16 PM EDT [facility] Specific [place], Ur 1.017 1.005 - 1.030 01/13/2022 7:16 PM EDT [facility] Hemoglobin/Blood ,Ur Negative Negative 01/13/2022 7:16 PM EDT [facility] pH, Urine 6.0 5.0 - 8.0 01/13/2022 7:16 PM EDT [facility] Protein, Urine Negative Negative 01/13/2022 7:16 PM EDT [facility] Urobilinogen Negative Negative 01/13/2022 7:16 PM EDT [facility] Nitrites Negative Negative 01/13/2022 7:16 PM EDT [facility] Leuk Esterase Negative Negative 01/13/2022 7:16 PM EDT [facility] WBC, Urine 0-5 /HPF 0-5 /HPF 01/13/2022 7:16 PM EDT [facility] RBC, Urine 0-3 /HPF 0-3 /HPF 01/13/2022 7:16 PM EDT [facility] Squamous Epithelial Cells Few /HPF 01/13/2022 7:16 PM EDT [facility] Urine Random URINE SPECIMEN / Unknown Non Blood / Unknown 01/13/2022 11:34 AM EDT 01/13/2022 11:34 AM EDT us Leonard Dugan MD LABORATORY Final Result [facility] [address] [place] [address], * URINE CULTURE (01/13/2022 11:34 AM EDT) Culture, Urine No growth (<1,000 CFU/ml) 01/14/2022 12:53 PM EDT [facility] Urine Random MID-STREAM URINE SPECIMEN / Unknown Non Blood / Unknown 01/13/2022 11:34 AM EDT 01/13/2022 11:34 AM EDT us Leonard Dugan MD MICROBIOLOGY Final Result [facility] [address] [place] [address], [place] documented in this encounter Visit Diagnoses Diagnosis Gross hematuria- Primary documented in this encounter Care Teams Debt Counselor Relationship Specialty Start Date End Date Campbell Naranjo DO [address] [place] [address] PCP - General Internal Medicine 11/26/21 documented as of this encounter
--- OUTSIDE RECORDS SUMMARY | 2024-09-22 08:26 | XMS_ITS | Clinical Summary ---
Author Organization [facility] Address [address] [place] [address] Care Team Providers Care Infection Prevention Specialist Name Role Phone Campbell Naranjo DO Primary Care Provider [phone] Allergies Active Allergy Reactions Criticality Noted Date Comments Ciprofloxacin 07/31/2009 Other Reaction(s): GI Upset, Hives, Unknown Sulfa Antibiotics Rash Low 07/31/2009 Other Reaction(s): Unknown Medications aspirin 81 MG chewable tablet 1 (one) time each day at the same time Active gabapentin (Neurontin) 300 MG capsule 1 capsule 1 (one) time each day at the same time 08/04/2023 Active glipiZIDE XL (Glucotrol XL) 2.5 MG 24 hr tablet 1 (one) time each day at the same time 08/04/2023 Active lisinopril 20 MG tablet 1 (one) time each day at the same time 09/05/2023 Active lovastatin (Mevacor) 40 MG tablet 1 (one) time each day at the same time 06/17/2023 Active tamsulosin (Flomax) 0.4 MG 24 hr capsule 1 capsule 1 (one) time each day at the same time 10/12/2023 Active Eliquis 5 MG tablet Take 5 mg by mouth in the morning and 5 mg before bedtime. 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 Sex and Gender Information Value Date Recorded Sex Assigned at Not on file Legal Sex Male 7:05 PM EDT Gender Identity Not on file Sexual Orientation Straight 12/16/2023 9: 36 AM EDT Last Filed Vital Signs Vital Sign Reading Time Taken Comments Blood Pressure 125/63 2022 12:00 PM EST Pulse - - Temperature - - Respiratory Rate - - Oxygen Saturation - - Inhaled Oxygen Concentration - - Weight 103 kg (226 lb) 05/17/2018 12:00 PM EST Height 190.5 cm (6' 3 ) 2022 12:00 PM EST Body Mass Index 28.25 05/17/2018 12:00 PM EST Plan of Treatment Upcoming Encounters Date Type Department Care Team (Late st Contact Info) Description 11/20/2024 1:30 PM EDT Office Visit [facility] [address] [place] [address] Willem Zamudio DO [address] [place] [address] Health Maintenance Due Date Last Done Comments Pneumococcal Vaccine: 65+ Ye ars (2 of 2 - PCV) 05/17/2012 05/18/2011 Influenza Vaccine (#1) 2024 4, 12/19/2021, 12/09/2020, Additional history exists Insurance MEDICARE Care Teams Infection Prevention Specialist Relationship Specialty Start Date End Date Campbell Naranjo DO PCP - General Internal Medicine 12/17/23
--- OUTSIDE RECORDS SUMMARY | 2024-09-22 08:26 | XMS_ITS | Encounter Summary ---
Author Organization [facility] Address [address] [place] [address] Care Team Providers Care Leasing Director Name Role Phone Heri Houston Jr. Primary Care Provider Heri Kraft Primary Care Provider Campbell Naranjo DO Primary Care Provider [phone] Source Comments In the event this information is protected by the Federal Confidentiality of Alcohol and Drug AbusePatient Records regulations: The Federal rules restrict any use of the information to criminally investigate or prosecute any alcohol or drug abuse patient.[facility] Encounter Details Date Type Department Care Team (Late st Contact Info) Description 10/09/2009 Patient Msg Medical Records [address] [place] [address] Provider, Ccf RE: Patient Registration Completed Social History Tobacco Use Types Packs/Day Years Used Date Smoking Tobacco: Former Cigarettes Q uit: 03/15/1971 Alcohol Use Standard Drinks/Week Comments Yes 0 [...] 3:00 PM EDT Office Visit Urology [address] [place] [address] Caro Milian, IT SECURITY CONSULTANT.FRUIT CANNER [address] [place] [address] 6 month follow up documented as of this encounter Visit Diagnoses Not on filedocumented in this encounter Care Teams Leasing Director Relationship Specialty Start Date End Date Heri Houston Jr. PCP - General 10/10/09 11/25/21 Heri Salas [address] [address] PCP - General 07/03/09 10/09/09 Campbell Naranjo DO [address] [place] [address] PCP - General Internal Medicine 11/26/21 documented as of this encounter
--- OUTSIDE RECORDS SUMMARY | 2024-09-22 08:26 | XMS_ITS | Encounter Summary ---
Author Organization [facility] Address [address] [place] [address] Care Team Providers Care Supervisor Electronics Inspection Name Role Phone Campbell Naranjo Primary Care Provider [phone] Source Comments In the event this information is protected by the Federal Confidentiality of Alcohol and Drug AbusePatient Records regulations: The Federal rules restrict any use of the information to criminally investigate or prosecute any alcohol or drug abuse patient.[facility] Encounter Details Date Type Department Care Team (Late st Contact Info) Description 04/24/2024 Telephone Urology [address] [place] [address] Caro Milian, FOILING MACHINE OPERATOR.TAPE CUTTING MACHINE OPERATOR [address] [place] [id number] Social History Tobacco Use Types Packs/Day Years [...] is lower risk 4 07/28/2022 Data from: https://www.neighborhoodatlas.medicine.[facility].edu/. Last address used for calculation [address] [...] 3:00 PM EDT Office Visit Urology [address] [place] [address] Caro Milian, FOILING MACHINE OPERATOR.TAPE CUTTING MACHINE OPERATOR [address] [place] [address] 6 month follow up documented as of this encounter Visit Diagnoses Not on filedocumented in this encounter Care Teams Supervisor Electronics Inspection Relationship Specialty Start Date End Date Campbell Naranjo DO [address] [place] [address] PCP - General Internal Medicine 11/26/21 documented as of this encounter
--- OUTSIDE RECORDS SUMMARY | 2024-09-22 08:26 | XMS_ITS | Encounter Summary ---
Author Organization [facility] Address [address] [place] [address] Care Team Providers Care Lead Auditor Name Role Phone Campbell Naranjo Primary Care Provider [phone] Source Comments In the event this information is protected by the Federal Confidentiality of Alcohol and Drug AbusePatient Records regulations: The Federal rules restrict any use of the information to criminally investigate or prosecute any alcohol or drug abuse patient.[facility] Encounter Details Date Type Department Care Team (Late st Contact Info) Description 07/21/2022 Get Medical Advice Urology [address] [place] [address] Caro Milian, HOME INSURANCE AGENT.OCEANOGRAPHER GEOLOGICAL [address] [place] [address] Urine Lab Results July 20 Social History Tobacco Use Types Packs/Day Years Used Date Smoking Tobacco: Former Cigarettes 1.5 14 0 03/15/1957 - 03/15/1971 Smokeless Tobacco: Never Alcohol Use Standard Drinks/Week Comments Yes 0 (1 standard drink = 0.6 oz pur e alcohol) social Area Deprivation Index Answer Date Osmar rded National Score (1-100), lower number is lower ri sk 65 04/02/2022 State Score (1-10), lower number is lower risk N ot on file 04/02/2022 Data from: https://www.neighborhoodatlas.medicine.[facility].edu/. Last address used for calculation [address] 04/02/2022 Sex and Gender Information Value Date Recorded Sex Assigned at Not on file Legal Sex Male 8:28 AM EST Gender Identity Not on file Sexual Orientation Not on file documented as of this encounter Plan of Treatment Upcoming Encounters Date Type Department Care Team (Late st Contact Info) Description 10/24/2024 3:00 PM EDT Office Visit Urology [address] [place] [address] Caro Milian, HOME INSURANCE AGENT.OCEANOGRAPHER GEOLOGICAL [address] [place] [address] 6 month follow up documented as of this encounter Visit Diagnoses Not on filedocumented in this encounter Care Teams Lead Auditor Relationship Specialty Start Date End Date Campbell Naranjo DO [address] [place] [address] PCP - General Internal Medicine 11/26/21 documented as of this encounter
--- OUTSIDE RECORDS SUMMARY | 2024-09-22 08:26 | XMS_ITS | Clinical Summary ---
Author Organization [facility] Address [address] [place] [address] Care Team Providers Care Dispatch Coordinator Name Role Phone Campbell Naranjo Primary Care Provider [phone] Allergies Active Allergy Reactions Criticality Noted Date Comments Ciprofloxacin GI Upset 07/31/2009 Sulfa (Sulfonamide Antibiotics) Rash 07/13 Medications gabapentin(NEUR ONTIN 300 MG CAP) Take one(1) tablet two(2) times daily. 0 0 0 Active lisinopril(PRIN IVIL 10 MG TAB) Take 20 mg by mouth once daily. 0 0 0 Active glipiZIDE 5 mg ORAL tablet Take 2.5 mg by mouth once daily. 0 0 Active Glucosamine HCl 1,500 mg tab Take 1,500 mg by mouth. 0 Active amLODIPine (NORVASC) 2.5 mg tablet Amlodipine Active 5 MG PO Daily December 11, 2021 12:00am 2 Active aspirin 81 mg cap Aspirin Active 81 MG PO Daily December 11, 2021 12:00am 2 Active lovastatin 40 mg tablet Lovastatin Active 40 MG PO Daily December 11, 2021 12:00am 0 Active doxycycline hyclate (VIBRAMYCIN) 100 mg capsule 2 Active TURMERIC ORAL Take by mouth. A ctive multivitamin (MULTIPLE VITAMINS ORAL) Take by mouth. Active apixaban (ELIQUIS) 2.5 mg tab(s) 5 mg two times a day. 4 Active metoprolol succinate ER (TOPROL XL) 25 mg 24 hr tablet Take 1 tablet by mouth every afternoon. 4 Active vit A/vit C/vit E/zinc/copper (PRESERVISION AREDS ORAL) Take by mouth. Act anil tamsulosin (FLOMAX) 0.4 mg Take 1 capsule by mouth two times a day. 180 capsule 2 5 01/17/20 25 Active Active Problems Problem Noted Date Diagnosed Date Post-operative state 12/12/2009 Ulcer of other part of foot 10/02/2009 Type II or unspecified type diabetes mellitus with neurological manifestations, not stated as uncontrolled(250.60) 07/31/2009 Social History Tobacco Use Types Packs/Day Years Used Date Smoking Tobacco: Former Cigarettes 1.5 14 0 03/15/1957 - 03/15/1971 Smokeless Tobacco: Never Tobacco Cessation:Counseling Given: Not Answered Alcohol Use Standard Drinks/Week Comments Yes 0 (1 standard drink = 0.6 oz pur e alcohol) social Area Deprivation Index Answer Date Osmar rded National Score (1-100), lower number is lower ri sk 61 07/28/2022 State Score (1-10), lower number is lower risk 4 07/28/2022 Data from: https://www.neighborhoodatlas.medicine.[facility].edu/. Last address used for calculation [address] [facility] 07/28/2022 Sex and Gender Information Value Date Recorded Sex Assigned at Not on file Legal Sex Male 8:28 AM EST Gender Identity Not on file Sexual Orientation Not on file Last Filed Vital Signs Vital Sign Reading Time Taken Comments Blood Pressure 161/69 04/21/2024 4:26 PM EST Pulse 76 04/21/2024 4:26 PM EST Temperature 36.8 C (98.2 F) 11/26/2021 10:17 PM EDT Respiratory Rate 16 12/16/2021 2:41 PM EDT Oxygen Saturation 99% 11/26/2021 10:17 PM EDT Inhaled Oxygen Concentration - - Weight 97.5 kg (215 lb) 04/21/2024 4:26 PM EST Height 190.5 cm (6' 3 ) 11/26/2021 7:22 PM EDT Body Mass Index 26.87 11/26/2021 7:22 PM EDT Plan of Treatment Upcoming Encounters Date Type Department Care Team (Late st Contact Info) Description 10/24/2024 3:00 PM EDT Office Visit Urology [address] [place] [address] Caro Milian, STUDENT AMBASSADOR.SERVICE COORDINATOR [facility] [address] [facility] [place] [address] 6 month follow up Health Maintenance Due Date Last Done Comments Anxiety Screening 1958 Depression Screening 1958 Medicare Annual Wellness Visit 03/15/2003 DTaP,Tdap,Td Vaccine (3 - Tdap) 12/28/2022 3, 01/28/2012 Covid-19 Vaccine (2023-2 5 season) 2023 12/18/2021, 06/16/2021, 12/09/2020, Additional history exists Advance Directive Discussion 03/15/2024 Influenza Vaccine (#1) 2024 , 12/01/2022, 12/19/2021, Additional history exists Diabetes Screening 07/25/2026 07/26/2023, 0 11/07/2021, 10/24/2009 Pneumococcal Vaccine: 50+ Completed 2015, 01/20/2012, 05/18/2011 Shingrix Vaccine Completed 01/13/2019, 11/04/2018 RSV Vaccine Completed 10/12/2023 Procedures Procedure Name Priority Date/Time Associated Diagnosis Comments HEMOGLOBIN A1C Routine 07/26/2023 8:37 AM EDT Type 2 diabetes mellitus with hyperglycemia, unspecified whether superintendent marine oil terminal insulin use (HCC) from Last 3 Months or Most Recently Relevant to Health Maintenance Results * (ABNORMAL) HEMOGLOBIN A1C (07/26/2023 8:37 AM EDT) Hemoglobin A1C 6.4(H) 4.3 - 5.6 % 07/26/2023 8:10 PM EDT [facility] Comment:[place] Diabetes As sociation guidelines indicate that patients with HgbA1c in the range 5.7-6.4% are at increased risk for development of diabetes, and intervention by lifestyle modification may be beneficial. HgbA1c greater or equal to 6.5% is considered diagnostic of diabetes. Estimated Average Glucose 137 mg/dL 07/26/2023 8:10 PM EDT [facility] Comment:eAG: (Estimated aver age glucose) is a calculated value from HgbA1c and is environmental marketing representative of the average blood glucose level in the last 2-3 month period. Blood BLOOD SPECIMEN / Unknown Venipuncture / Unknown 07/26/2023 8:37 AM EDT 07/26/2023 8:37 AM EDT us Campbell Naranjo DO LABORATORY Final Result [facility] [address] [place] [address], [place] from Last 3 Months or Most Recently Relevant to Health Maintenance Insurance MEDICARE Care Teams Dispatch Coordinator Relationship Specialty Start Date End Date Campbell Naranjo DO [address] [facility] [place] [address] PCP - General Internal Medicine 11/26/21
--- OUTSIDE RECORDS SUMMARY | 2024-09-22 08:26 | XMS_ITS | Patient Health Record ---
Author Organization [facility] [place] Address [address] [place] [address] Care Team Providers Care Oracle Iam Consultant Name Role Phone Campbell Naranjo DO Primary Care Provider Jhon Cassidy Unavailable [phone] Randa Gaston Unavailable [phone] Allergies Allergen (clinical drug ingredient) Drug/Non Drug Allergy documented on EMR Reaction Allergy Type Onset Date Status ciprofloxacin Cipro Unknown Drug Allergy Act anil Substance with sulfonamide structure and antibacterial mechanism of action (substance) Sulfa Antibiotics Unknown Drug Allergy Active Reason For Referral No Information Medications Medication SIG (Take, Route, Fr equency, Duration) Notes Start Date End Date Status Tamsulosin HCl 0.4 MG 1 capsule Orally Once a day Active Glucosamine Active glipiZIDE ER 2.5 MG 1 tablet with breakf ast Orally Once a day Active Lovastatin 40 MG 1 tablet with the ev ening meal Orally Once a day Active Lisinopril 20 MG 1 tablet Orally Once a day Active Aspirin 81 MG 1 tablet Orally Once a day Active amLODIPine Besylate Active Gabapentin 300 MG 1 capsule Orally Once a day Active Social History Tobacco Use: Social History Observation Description Date Details (start date - stop date) Former Smoker NA - NA Tobacco Use/Smoking Question Answer Notes Patient is a former smoker How long has it been since you last smoked? > 10 years Additional Findings: Tobacco Non-User Current no n-smoker Problems Problem Type SNOMED Code ICD Code Onset Dates Problem Status W/U Status Risk Notes Problem 719680554549782 Type 2 diabetes mellitus with foot ulcer (E11.621) Active confirmed Problem 93678047 Other chronic pain (G89.29) Active confirmed Problem 03175604830336717 Non-pressure chronic ulcer of other part of right foot limited to breakdown of skin (L97.511) Active confirmed Problem Dyslipidemia (511242721) Dyslipidemia (E78.5) Active confirmed Problem Hypothyroidism (54741734) Hypothyroidism (E03.9) Active confirmed Problem Iron deficiency anemia (39968292) Anemia, iron deficiency (D50.9) Active confirmed Problem 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) Active confirmed Problem 955542772 Callus of foot (L84) Active confirmed Problem Long-term current use of insulin (684846805) Long-term insulin use (Z79.4) Active confirmed Problem 68396876 Type 2 diabetes mellitus with diabetic polyneuropathy, 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) Active confirmed Problem Essential hypertension (88033867) BP (high blood pressure) (I10) Active confirmed Problem 657262126 Hammertoe of right foot (M20.41) Active confirmed Problem 2207536772319214 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) Active confirmed Problem Chronic ulcer of great toe of left foot, limited to breakdown of skin (L97.521) Active confirmed Problem Non-pressure chronic ulcer of other part of right foot with muscle involvement without evidence of necrosis (L97.515) Active confirmed Problem Non-pressure chronic ulcer of other part of right foot with other specified severity (L97.518) Active confirmed Problem Chronic ulcer of right great toe with fat layer exposed (L97.512) Active confirmed Problem Delayed surgical wound healing of toe amputation stump (T87.89) Active confirmed Problem Diabetes mellitus (81729960) Diabetes mellitus (E11.9) Active confirmed Problem Chronic ulcer of right foot (disorder) (58940235964899133) Chronic ulcer of right foot with fat layer exposed (L97.512) Active confirmed Vital Signs Heart Rate 74 /min 01/26/2024 Temperature 97.9 degrees Fahrenheit 01/26/2024 Oximetry 99 % 01/26/2024 Height 75 in 01/26/2024 Weight 224 lbs 11/02/2023 BMI 28 kg/m2 11/02/2023 Encounters Encounter Location Date Provider Diagnosis [facility] (PODIATRY) [address] [place] [address] [place] [address] 11/02/2023 Jhon Tejada Non-pressure chronic ulcer of other part of right foot with other specified severity L97.518 and Type 2 diabetes mellitus with foot ulcer E11.621 [facility] (PODIATRY) [address] [place] [address] [place] [address] 04/27/2024 Randa Gaston [facility] ([facility]OD[facility]) [address] [place] [address] 01/26/2024 Jhon Tejada Type 2 diabetes mellitus [...] mellitus with foot ulcer (ICD-10 - E11.621) 01/26/2024 Type 2 diabetes mellitus with diabetic polyneuropathy , without long-term current use of insulin (ICD-10 - E11.42) 01/26/2024 Hammertoe of right foot (ICD-10 - M20.41) Plan Of Treatment No Information Insurance Providers Payer Name Payer Address Payer Phone Subscriber Number Group Number Insured Name Patient Relationship to Insured Coverage Start Date Coverage End Date MEDIC[place] [address] [place] [address] [id number] Norberto Vogt Self - patient is the insured 4 Medical (General) History Medical History History ICD Code diabetes mellitus hypertension iron deficiency anemia Surgical History Surgery Date(Month/Year) bilateral partial toe amputations 2023
[2024-09-22 10:32] LABS: Glucose Urine UA NEGATIVE (NEGATIVE)
[2024-09-22 10:57] LABS: TSH W/ REFLEX FT4 4.474 uIU/mL (0.358-3.740)
[2024-09-22 10:58] LABS: Hematocrit 36.0 % (42.0-54.0); Hemoglobin 11.9 g/dL (14.0-18.0); Immature Granulocytes Abs Auto 0.03 10^3/uL (0.00-0.03); Immature Granulocytes Pct Auto 0.5 % (0.0-0.5); Lymphocytes Absolute Auto 1.5 10^3/uL (1.2-3.8); Mean Corpuscular HGB Conc 33.1 g/dL (29.9-35.2); Mean Corpuscular Hemoglobin 28.7 pg (25.9-34.0); Mean Corpuscular Volume 87.0 fL (80.0-94.0); Platelet Count 232 10^3/uL (150-450); Red Blood Count 4.14 10^6/uL (4.70-6.10); White Blood Count 6.1 10^3/uL (4.0-11.0)
== END 2024-09-22 08:20 | disposition home or self-care (01) ==
LOC: LAB 08:23
PROVIDERS: PCP Internal Medicine; Visit Provider Internal Medicine
DX: R30.0 Dysuria (principal); D64.9 Anemia, unspecified; R53.83 Other fatigue; E03.8 Other specified hypothyroidism; R79.89 Other specified abnormal findings of blood chemistry
CPT/HCPCS: 36415; 81003; 83921; 84439; 84443; 85025; 87086

== ENCOUNTER 2024-10-19 14:14 | Outpatient (OUT) | payer MEDICARE, SELFPAY ==
--- OUTSIDE RECORDS SUMMARY | 2023-11-02 05:15 | XMS_ITS ---
Author Organization [facility] [place] Address [address] [place] [address] Care Team Providers Care Butcher Scullion Name Role Phone Campbell Naranjo DO Primary Care Provider Jhon Cassidy Unavailable [phone] Allergies Allergen (clinical drug ingredient) Drug/Non Drug [...] Encounters Encounter Location Date Provider Diagnosis [facility] (PODIATRY) [address] [place] [address] [place] [address] 11/02/2023 Jhon Tejada Non-pressure chronic ulcer of [...] Notes * Norberto VOGTDOB:1940 (83 yo M)Acc No.[id number]:11/02/2023 Follow Up Patient: Norberto GILLIAM Provider: Marilyn Tejada DPM, [place] :1940 A ge:83 Y S ex:Male Date:11/02/2023 Address:[address] [place], [place] [id number] Pcp:Campbell Naranjo, DO Check In:09:11 AM ESTCheck [...] M usculoskeletal: Bone/Joint Symptoms d enies. C correction Pain d enies.?Leg cramps d enies. N [...] No SOI. Pedal pulses are palpable & [employer] brisk. No calf pain on squeeze. No [...] Date: 11/02/2023 Generated for Renyi viv/Nilo/Brigittesmitting on: 10/19/2024 02:17 PM EDT History and Physical Notes * Examination Category Sub-Category Detail Notes Category Not es Podiatry Examination Skin is intact with coapted incisions. No SOI. Pedal pulses are palpable & [employer] brisk. No calf pain on squeeze. No pain out of proportion. Strength & ROM deferred
--- OUTSIDE RECORDS SUMMARY | 2024-01-26 05:00 | XMS_ITS ---
Author Organization The [facility] in [place] Address [address] [place] [address] Care Team Providers Care Coating Mixer Name Role Phone Campbell Naranjo DO Primary Care Provider Jhon Cassidy [phone] Allergies Allergen (clinical drug ingredient) Drug/Non Drug Allergy documented on EMR Reaction Allergy Type Onset Date Status ciprofloxacin Cipro Unknown Drug Allergy Act anil Substance with sulfonamide structure and antibacterial mechanism of action (substance) Sulfa Antibiotics Unknown Drug Allergy Active REASON FOR VISIT Nail Care Medications Medication SIG (Take, Route, Fr equency, Duration) Notes Start Date End Date Status Tamsulosin HCl 0.4 MG 1 capsule Orally Once a day Active Lovastatin 40 MG 1 tablet with the ev ening meal Orally Once a day Active Aspirin 81 MG 1 tablet Orally Once a day Active amLODIPine Besylate Active Gabapentin 300 MG 1 capsule Orally Once a day Active Glucosamine Active glipiZIDE ER 2.5 MG 1 tablet with breakf ast Orally Once a day Active Lisinopril 20 MG 1 tablet Orally Once a day Active Vital Signs Temperature 97.9 degrees Fahrenheit 01/26/20 24 Heart Rate 74 /min 01/26/2024 Height 75 in 01/26/2024 Oximetry 99 % 01/26/2024 Encounters Encounter Location Date Provider Diagnosis [facility] (PODIATRY) [address] [place], [place] [address] [address] 01/26/2024 Jhon Tejada Type 2 diabetes mellitus with diabetic polyneuropathy, without long-term current use of insulin E11.42 and Hammertoe of right foot M20.41 Assessments Encounter Date Diagnosis (ICD Code) Assessment Notes Treatment Notes Treatment Clinical Notes Section Notes 01/26/2024 Type 2 diabetes mellitus with diabetic polyneuropathy, without long-term current use of insulin (ICD-10 - E11.42) 01/26/2024 Hammertoe of right foot (ICD-10 - M20.41) Plan Of Treatment Next Appt Details Follow Up: 3 Months, Reason: Progress Notes * Norberto VOGTDOB:1940 (84 yo M)Acc No.[id number]:01/26/2024 Nurse Visit Patient: Norberto GILLIAM Provider: Marilyn Tejada DPM, MS :1940 A ge:83 Y S ex:Male Date:01/26/2024 Address:[address] [place], [place] [address], [id number] Pcp:Campbell Naranjo, DO Check In:09:08 AM ESTCheck O ut:09:29 AM EST Subjective: * Chief Complaints: * 1 . Nail Care. * HPI: G eneral: Patient follows up for routine nail care today. He has thick, elongated nails to each foot. Toes 1,2,3 and 5 on right foot and toes 1,2 and 5 on right foot. All trimmed. Right fifth toenail with skin underneath nail clipped with nippers today. Cleansed well and bandage applied. Patient tolerated well. No callus trimming needed at this time. 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 Modified On:06/02/2022/U Status:confirmed G89.29 Other chronic pain Modified On:06/02/2022/U Status:confirmed M19.072 Arthritis of left fo ot Modified On:06/24/2022/U Status:confirmed M20.41 Hammertoe of right f oot Modified On:06/24/2022/U Status:confirmed L84 Callus of foot Modified On:06/24/2022/U Status:confirmed E11.42 Type 2 diabetes patsy itus with diabetic polyneuropathy, without long-term current use of insulin Modified On:06/24/2022U Status:confirmed L97.515 Non-pressure chronic ulcer of other part of right foot with muscle involvement without evidence of necrosis Modified On:04/27/2023U Status:confirmed L97.512 Chronic ulcer of rig ht foot with fat layer exposed Modified On:04/07/2023U Status:confirmed L97.519 Chronic ulcer of gre at toe of right foot Modified On:04/27/2023U Status:confirmed L97.512 Chronic ulcer of rig ht great toe with fat layer exposed Modified On:04/27/2023U Status:confirmed E78.5 Dyslipidemia Modified On:05/05/2023 Status:confirmed I10 BP (high blood press ure) Modified On:05/05/2023 Status:confirmed E11.9 Diabetes mellitus Modified On:05/05/2023U Status:confirmed Z79.4 Long-term insulin us e Modified On:05/05/2023 Status:confirmed D50.9 Anemia, iron deficie ncy Modified On:05/05/2023U Status:confirmed E03.9 Hypothyroidism Modified On:05/05/2023 Status:confirmed L97.518 Non-pressure chronic ulcer of other part of right foot with other specified severity Modified On:05/21/2023U Status:confirmed L97.521 Chronic ulcer of gre at toe of left foot, limited to breakdown of skin Modified On:07/05/2023U Status:confirmed 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 * Medications: T aking amLODIPine Besylate , Taking Aspirin 81 MG Tablet Chewable 1 tablet Orally Once a day , Taking Gabapentin 300 MG Capsule 1 capsule Orally Once a day , Taking glipiZIDE ER 2.5 MG Tablet Extended Release 24 Hour 1 tablet with breakfast Orally Once a day , Taking Glucosamine , Taking Lisinopril 20 MG Tablet 1 tablet Orally Once a day , Taking Lovastatin 40 MG Tablet 1 tablet with the evening meal Orally Once a day , Taking Tamsulosin HCl 0.4 MG Capsule 1 capsule Orally Once a day , Medication List reviewed and reconciled with the patient * Allergies: S ulfa Antibiotics, Cipro. Objective: * Vitals: H t: 75 in, Temp:97.9F, HR:74/min, Pain scale:01-10, Oxygen sat %:99%, Ht-cm: 190.5 cm. Assessment: * Assessment: 1. T ype 2 diabetes mellitus with diabetic polyneuropathy, without long-term current use of insulin - E11.42 2 . H ammertoe of right foot - M20.41 Plan: * Treatment: * Procedure Codes: 1 1721 DEBRIDE.NAILS;SIX OR MORE * Follow Up: 3 Months * * Sign off status: Completed Visit Status: C HK (Check Out) true * Provider: Marilyn Tejada DPM, MS Date: 1 03/27/2023 Generated for John Paul nam/Nilo/Martínitting on: 0 10/19/2024 02:17 PM EDT
--- OUTSIDE RECORDS SUMMARY | 2024-04-27 09:40 | XMS_ITS ---
Author Organization The [facility] in [place] Address [address] [place] [address] Care Team Providers Care Chief Power Dispatcher Name Role Phone Campbell Naranjo DO Primary Care Provider Unavaila Randa Carrillo Unavailable [phone] REASON FOR VISIT Nail Care Encounters Encounter Location Date Provider Diagnosis [facility] (PODIATRY) [address] [place] [address] [place] [address] 04/27/2024 Randa Gaston Plan Of Treatment No Information Progress Notes * Norberto VOGTDOB:1940 (84 yo M)Acc No.[id number]:04/27/2024 UNLOCKED PROGRESS NOTE Nurse Visit Patient: Norberto GILLIAM Provider: Andrew Gaston PA-C :1940 A ge:84 Y S ex:Male Date:04/27/2024 Address:[address] [place] [address] MISTI MELENDEZ [id number] Pcp:Campbell Naranjo DO Check In:01:35 PM ESTCheck O ut:02:05 PM EST Subjective: * Chief Complaints: * 1 . Nail Care. * Medical History: Objective: * Vitals: Assessment: Plan: * Treatment: * * Electronic signature of Kim Gaston PA-C on 10/19/2024 at 02:17 PM EDT Sign off status: Pending Visit Status: C HK (Check Out) * Provider: Andrew Gaston PA-C Date: 0 04/27/2024 Generated for John Paul nam/Nilo/eTransmitting on: 0 10/19/2024 02:17 PM EDT
--- OUTSIDE RECORDS SUMMARY | 2024-10-19 14:17 | XMS_ITS | Encounter Summary ---
Author Organization [facility] Address [address] [place] [address] Care Team Providers Care Counter Intelligence Agent Name Role Phone Campbell Naranjo Primary Care Provider [phone] Source Comments In the event this information is protected by the Federal Confidentiality of Alcohol and Drug AbusePatient Records regulations: The Federal rules restrict any use of the information to criminally investigate or prosecute any alcohol or drug abuse patient.[facility] Encounter Details Date Type Department Care Team (Late st Contact Info) Description 03/03/2024 Get Medical Advice Urology [address] [place] [address] Caro Milian, TAPE RECORDER REPAIRER.GAS DESULFURIZER [address] [place], [place] [id number] Bladder issues Social History Tobacco Use Types [...] is lower risk 4 07/28/2022 Data from: https://www.neighborhoodatlas.medicine.[facility]/. Last address used for calculation [address] [...] 3:00 PM EDT Office Visit Urology [address] [place], [place] [id number] Caro Milian, TAPE RECORDER REPAIRER.GAS DESULFURIZER [address] [place] [address] 6 month follow up documented as of this encounter Visit Diagnoses Not on filedocumented in this encounter Care Teams Counter Intelligence Agent Relationship Specialty Start Date End Date Campbell Naranjo DO [address] [place] [address] PCP - General Internal Medicine 11/26/21 documented as of this encounter
--- OUTSIDE RECORDS SUMMARY | 2024-10-19 14:17 | XMS_ITS | Clinical Summary ---
Author Organization [facility] Address [address] [place] [address] Care Team Providers Care Kiln Feeder Name Role Phone Campbell Naranjo DO Primary Care Provider [phone] Allergies Active Allergy Reactions Criticality Noted Date [...] 11/20/2024 1:30 PM EDT Office Visit [facility] [address] [place] [address] Willem Zamudio DO [address] [place] [address] Health Maintenance Due Date Last Done Comments Pneumococcal Vaccine: 65+ Ye ars (2 of 2 - PCV) 05/17/2012 05/18/2011 Influenza Vaccine (#1) 2024 4, 12/19/2021, 12/09/2020, Additional history exists Insurance MEDICARE Care Teams Kiln Feeder Relationship Specialty Start Date End Date Campbell Naranjo DO PCP - General Internal Medicine 12/17/23
--- OUTSIDE RECORDS SUMMARY | 2024-10-19 14:17 | XMS_ITS | Encounter Summary ---
Author Organization [facility] Address [address] [place] [address] Care Team Providers Care Heart Surgeon Name Role Phone Campbell Naranjo Primary Care Provider [phone] Source Comments In the event this information is protected by the Federal Confidentiality of Alcohol and Drug AbusePatient Records regulations: The Federal rules restrict any use of the information to criminally investigate or prosecute any alcohol or drug abuse patient.[facility] Encounter Details Date Type Department Care Team (Late st Contact Info) Description 04/24/2024 Telephone Urology [address] [place] [address] Caro Milian, MENS LOCKER ROOM ATTENDANT.STONEMASON APPRENTICE [address] [place] [id number] Social History Tobacco Use Types Packs/Day Years [...] lower risk 4 07/28/2022 Data from: https://www.neighborhoodatlas.medicine.[facility].edu/. Last address used for calculation [address] [...] 3:00 PM EDT Office Visit Urology [address] [place] [address] Caro Milian, MENS LOCKER ROOM ATTENDANT.STONEMASON APPRENTICE [address] [place] [address] 6 month follow up documented as of this encounter Visit Diagnoses Not on filedocumented in this encounter Care Teams Heart Surgeon Relationship Specialty Start Date End Date Campbell Naranjo DO [address] [place] [address] PCP - General Internal Medicine 11/26/21 documented as of this encounter
--- OUTSIDE RECORDS SUMMARY | 2024-10-19 14:17 | XMS_ITS | Clinical Summary ---
Author Organization [facility] Address [address] [place] [address] Care Team Providers Care Button Spindler Name Role Phone Unavailable Primary Care Provider [...]
--- OUTSIDE RECORDS SUMMARY | 2024-10-19 14:17 | XMS_ITS | Clinical Summary ---
Author Organization [facility] Address [address] [place] [address] Care Team Providers Care College Or University Department Head Name Role Phone Campbell Naranjo Primary Care Provider Allergies Active Allergy Reactions Criticality Noted Date [...] neurological manifestations, not stated as uncontrolled(250.60) 07/31/2009 Encounters Date Type Department Care Team Description 10/17/2024 Travel from Last 3 Months Social History Tobacco Use Types Packs/Day Years [...] is lower risk 4 07/28/2022 Data from: https://www.neighborhoodatlas.medicine.[facility].edu/. Last address used for calculation [address] [facility] 07/28/2022 Sex and Gender Information Value Date [...] 3:00 PM EDT Office Visit Urology [address] [place] [address] Caro Milian, EXPORT TRAFFIC DEPARTMENT MANAGER.ASBESTOS TEXTILE SUPERVISOR [address] [place] [address] 6 month follow up Health Maintenance Due Date Last Done Comments Anxiety Screening 1958 Depression Screening 1958 Medicare Annual Wellness Visit 03/15/2003 DTaP,Tdap,Td Vaccine (3 - Tdap) 12/28/2022 3, 01/28/2012 Advance Directive Discussion 03/15/2024 Influenza Vaccine (#1) 2024 4, 12/01/2022, 12/19/2021, Additional history exists Diabetes Screening 07/25/2026 07/26/2023, 0 11/07/2021, 10/24/2009 Pneumococcal Vaccine: 50+ Completed 2015, 01/20/2012, 05/18/2011 Shingrix Vaccine Completed 01/13/2019, 11/04/2018 RSV Vaccine Completed 10/12/2023 Procedures Procedure Name Priority Date/Time Associated Diagnosis Comments HEMOGLOBIN A1C Routine 07/26/2023 8:37 AM EDT Type 2 diabetes mellitus with hyperglycemia, unspecified whether custodial insulin use (HCC) from Last 3 Months or Most Recently Relevant to Health Maintenance Results * (ABNORMAL) HEMOGLOBIN A1C (07/26/2023 8:37 AM EDT) Hemoglobin A1C 6.4(H) 4.3 - 5.6 % 07/26/2023 8:10 PM EDT [facility] Comment:[place] Diabetes As sociation guidelines indicate that patients with HgbA1c in the range 5.7-6.4% are at increased risk for development of diabetes, and intervention by lifestyle modification may be beneficial. HgbA1c greater or equal to 6.5% is considered diagnostic of diabetes. Estimated Average Glucose 137 mg/dL 07/26/2023 8:10 PM EDT [facility] Comment:eAG: (Estimated aver age glucose) is a calculated value from HgbA1c and is architectural representative of the average blood glucose level in the last 2-3 month period. Blood BLOOD SPECIMEN / Unknown Venipuncture / Unknown 07/26/2023 8:37 AM EDT 07/26/2023 8:37 AM EDT us Campbell Naranjo DO LABORATORY Final Result [facility] [address] [place] [id number] [place] [address], from Last 3 Months or Most Recently Relevant to Health Maintenance Insurance MEDICARE Care Teams College Or University Department Head Relationship Specialty Start Date End Date Campbell Naranjo DO [address] [place] [address] PCP - General Internal Medicine 11/26/21
--- OUTSIDE RECORDS SUMMARY | 2024-10-19 14:17 | XMS_ITS | Encounter Summary ---
Author Organization [facility] Address [address] [place] [address] Care Team Providers Care Rough And Trueing Machine Operator Name Role Phone Heri Houston Jr. Primary Care Provider Heri Kraft Primary Care Provider Campbell Naranjo DO Primary Care Provider Source Comments In the event this information is protected by the Federal Confidentiality of Alcohol and Drug AbusePatient Records regulations: The Federal rules restrict any use of the information to criminally investigate or prosecute any alcohol or drug abuse patient.[facility] Encounter Details Date Type Department Care Team (Late st Contact Info) Description 10/09/2009 Patient Msg Medical Records [address] [place] [address] Provider, Ccf RE: Patient Registration Completed Social [...] 3:00 PM EDT Office Visit Urology [address] [place] [address] Caro Milian, NUCLEAR OPERATOR.METAL CONTROL COORDINATOR [address] [place] [address] 6 month follow up documented as of this encounter Visit Diagnoses Not on filedocumented in this encounter Care Teams Rough And Trueing Machine Operator Relationship Specialty Start Date End Date Heri Houston Jr. PCP - General 10/10/09 11/25/21 Heri Salas [address] [address] PCP - General 07/03/09 10/09/09 Campbell Naranjo DO [address] [place] [address] PCP - General Internal Medicine 11/26/21 documented as of this encounter
--- OUTSIDE RECORDS SUMMARY | 2024-10-19 14:17 | XMS_ITS | Encounter Summary ---
Author Organization [facility] Address [address] [place] [address] Care Team Providers Care Basting Marker Name Role Phone Campbell Naranjo Primary Care Provider [phone] Source Comments In the event this information is protected by the Federal Confidentiality of Alcohol and Drug AbusePatient Records regulations: The Federal rules restrict any use of the information to criminally investigate or prosecute any alcohol or drug abuse patient.[facility] Encounter Details Date Type Department Care Team (Late st Contact Info) Description 07/21/2022 Get Medical Advice Urology [address] [place] [address] Caro Milian, MANAGER POKER.BISQUE WARE DIPPER [address] [place] [address] Urine Lab Results July 20 [...] N ot on file 04/02/2022 Data from: https://www.neighborhoodatlas.medicine.[facility].edu/. Last address used for calculation [address] [...] 3:00 PM EDT Office Visit Urology [address] [place] [address] Caro Milian, MANAGER POKER.BISQUE WARE DIPPER [address] [place] [address] 6 month follow up documented as of this encounter Visit Diagnoses Not on filedocumented in this encounter Care Teams Basting Marker Relationship Specialty Start Date End Date Campbell Naranjo DO [address] [place] [address] PCP - General Internal Medicine 11/26/21 documented as of this encounter
--- OUTSIDE RECORDS SUMMARY | 2024-10-19 14:17 | XMS_ITS | Encounter Summary ---
Author Organization [facility] Address [address] [place] [address] Care Team Providers Care Rouge Miller Name Role Phone Campbell Naranjo Primary Care Provider [phone] Source Comments In the event this information is protected by the Federal Confidentiality of Alcohol and Drug AbusePatient Records regulations: The Federal rules restrict any use of the information to criminally investigate or prosecute any alcohol or drug abuse patient.[facility] Encounter Details Date Type Department Care Team (Late st Contact Info) Description 04/19/2024 Patient Msg Urology [address] [place], [place] [id number] Caro Milian, BAR GAUGER AND LUBRICATOR TENDER.FINAL ASSEMBLY WORKER [address] [place] [address] Appointment Request Social History Tobacco [...] is lower risk 4 07/28/2022 Data from: https://www.neighborhoodatlas.medicine.[facility].edu/. Last address used for calculation [address] [...] 3:00 PM EDT Office Visit Urology [address] [place] [address] Caro Milian, BAR GAUGER AND LUBRICATOR TENDER.FINAL ASSEMBLY WORKER [address] [place] [address] 6 month follow up documented as of this encounter Visit Diagnoses Not on filedocumented in this encounter Care Teams Rouge Miller Relationship Specialty Start Date End Date Campbell Naranjo DO [address] [place] [address] PCP - General Internal Medicine 11/26/21 documented as of this encounter
--- OUTSIDE RECORDS SUMMARY | 2024-10-19 14:18 | XMS_ITS | Encounter Summary ---
Author Organization [facility] Address [address] [place] [address] Care Team Providers Care Inspector Canvas Products Name Role Phone Campbell Naranjo Primary Care Provider [phone] Source Comments In the event this information is protected by the Federal Confidentiality of Alcohol and Drug AbusePatient Records regulations: The Federal rules restrict any use of the information to criminally investigate or prosecute any alcohol or drug abuse patient.[facility] Encounter Details Date Type Department Care Team (Late st Contact Info) Description 12/24/2021 Get Medical Advice Urology [address] [place] [address] Leonard Dugan MD [address] [place], [place] [id number] Bladder Info Social History Tobacco Use Types [...] 3:00 PM EDT Office Visit Urology [address] [place], [place] [id number] Caro Milian, PHYSICIAN INTENSIVIST.SCREEN HANDLER [address] [place] [address] 6 month follow up documented as of this encounter Results * URINALYSIS, WITH MICROSCOPIC (01/13/2022 11:34 AM EDT) Color Light Yellow Yellow 01/13/2022 7:16 PM EDT [facility] Clarity Clear Clear 01/13/2022 7:16 PM EDT [facility] Glucose, Urine Negative Negative 01/13/2022 7:16 PM EDT [facility] Bilirubin, Urine Negative Negative 01/14/20 7:16 PM EDT [facility] Ketones, Urine Negative Negative 01/13/2022 7:16 PM EDT [facility] Specific [facility], Ur 1.017 1.005 - 1.030 01/13/2022 7:16 PM EDT [facility] Hemoglobin/Blood ,Ur Negative Negative 01/13/2022 7:16 PM EDT [facility] pH, Urine 6.0 5.0 - 8.0 01/13/2022 7:16 PM EDT [facility] Protein, Urine Negative Negative 01/13/2022 7:16 PM EDT [facility] Urobilinogen Negative Negative 01/13/2022 7:16 PM EDT [facility] Nitrites Negative Negative 01/13/2022 7:16 PM EDT [facility] Leuk Esterase Negative Negative 01/13/2022 7:16 PM EDT [facility] WBC, Urine 0-5 /HPF 0-5 /HPF 01/13/2022 7:16 PM EDT [facility] RBC, Urine 0-3 /HPF 0-3 /HPF 01/13/2022 7:16 PM EDT [facility] Squamous Epithelial Cells Few /HPF 01/13/2022 7:16 PM EDT [facility] Urine Random URINE SPECIMEN / Unknown Non Blood / Unknown 01/13/2022 11:34 AM EDT 01/13/2022 11:34 AM EDT us Leonard Dugan MD LABORATORY Final Result [facility] [address] [place] [address], * URINE CULTURE (01/13/2022 11:34 AM EDT) Culture, Urine No growth (<1,000 CFU/ml) 01/14/2022 12:53 PM EDT [facility] Urine Random MID-STREAM URINE SPECIMEN / Unknown Non Blood / Unknown 01/13/2022 11:34 AM EDT 01/13/2022 11:34 AM EDT us Leonard Dugan MD MICROBIOLOGY Final Result [facility] [address] [place] [address], [place] documented in this encounter Visit Diagnoses Diagnosis Gross hematuria- Primary documented in this encounter Care Teams Inspector Canvas Products Relationship Specialty Start Date End Date Campbell Naranjo DO [address] [place] [address] PCP - General Internal Medicine 11/26/21 documented as of this encounter
--- OUTSIDE RECORDS SUMMARY | 2024-10-19 14:18 | XMS_ITS | Encounter Summary ---
Author Organization [facility] Address [address] [place] [address] Care Team Providers Care Rehabilitation Manager Name Role Phone Campbell Naranjo Primary Care Provider [phone] Source Comments In the event this information is protected by the Federal Confidentiality of Alcohol and Drug AbusePatient Records regulations: The Federal rules restrict any use of the information to criminally investigate or prosecute any alcohol or drug abuse patient.[facility] Encounter Details Date Type Department Care Team (Latest Contact Info) Description 10/17/2024 Travel Social History Tobacco Use Types Packs/Day Years [...] is lower risk 4 07/28/2022 Data from: https://www.neighborhoodatlas.medicine.[facility].edu/. Last address used for calculation [address] 07/28/2022 Sex and Gender Information Value Date Recorded Sex Assigned at Not on file Legal Sex Male 8:28 AM EST Gender Identity Not on file Sexual Orientation Not on file documented as of this encounter Plan of Treatment Upcoming Encounters Date Type Department Care Team (Late st Contact Info) Description 10/24/2024 3:00 PM EDT Office Visit Urology [address] [place] [address] Caro Milian, DECORATING CONSULTANT.AIRCRAFT AIR CONDITIONING MECHANIC [address] [place] [address] 6 month follow up documented as of this encounter Visit Diagnoses Not on filedocumented in this encounter Care Teams Rehabilitation Manager Relationship Specialty Start Date End Date Campbell Naranjo DO [address] [place] [address] PCP - General Internal Medicine 11/26/21 documented as of this encounter
--- OUTSIDE RECORDS SUMMARY | 2024-10-19 14:18 | XMS_ITS | Patient Health Record ---
Author Organization [facility] [place] Address [address] [place] [address] Care Team Providers Care Freight Traffic Consultant Name Role Phone Campbell Naranjo DO Primary Care Provider Jhon Cassidy Unavailable [phone] Randa Gaston Unavailable [phone] Allergies Allergen (clinical drug ingredient) Drug/Non Drug [...] Problem Status W/U Status Risk Notes Problem 453206350754659 Type 2 diabetes mellitus with foot ulcer (E11.621) Active confirmed Problem 40426849 Other chronic pain (G89.29) Active confirmed Problem [id number] Non-pressure chronic ulcer of other part of right foot limited to breakdown of skin (L97.511) Active confirmed Problem Dyslipidemia (508213603) Dyslipidemia (E78.5) Active confirmed Problem Hypothyroidism (48415709) Hypothyroidism (E03.9) Active confirmed Problem Iron deficiency anemia (83854236) Anemia, iron deficiency (D50.9) Active confirmed Problem 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) Active confirmed Problem 633670726 Callus of foot (L84) Active confirmed Problem Long-term current use of insulin (195212344) Long-term insulin use (Z79.4) Active confirmed Problem 94412496 Type 2 diabetes mellitus with diabetic polyneuropathy, 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) Active confirmed Problem Essential hypertension (08689892) BP (high blood pressure) (I10) Active confirmed Problem 063356587 Hammertoe of right foot (M20.41) Active confirmed Problem 9059909711338116 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) Active [...] stump (T87.89) Active confirmed Problem Diabetes mellitus (71641908) Diabetes mellitus (E11.9) Active confirmed Problem Chronic ulcer of right foot (disorder) (28695273787207764) Chronic ulcer of right foot with fat layer exposed (L97.512) Active confirmed Vital Signs Heart Rate 74 /min 01/26/2024 Temperature 97.9 degrees Fahrenheit 01/26/2024 Oximetry 99 % 01/26/2024 Height 75 in 01/26/2024 Weight 224 lbs 11/02/2023 BMI 28 kg/m2 11/02/2023 Encounters Encounter Location Date Provider Diagnosis [facility] (PODIATRY) [address] [place] [address] [place] [address] 11/02/2023 Jhon Tejada Non-pressure chronic ulcer of other part of right foot with other specified severity L97.518 and Type 2 diabetes mellitus with foot ulcer E11.621 [facility] (PODIATRY) [address] [place] [address] [place] [address] 04/27/2024 Randa Gaston [facility] (PODIATRY) [address] [facility] [place] [address] 01/26/2024 Jhon Tejada Type 2 diabetes mellitus [...] End Date [place] [address] [place] [address] [id number] Norberto Vogt Self - patient is the insured 4 Medical (General) History Medical History History ICD Code diabetes mellitus hypertension iron deficiency anemia Surgical History Surgery Date(Month/Year) bilateral partial toe amputations 2023
--- NOTE | 2024-10-19 14:44 | PM.WCHP ---
Wound Care H&P: HPI History of Present Illness Narrative: Mr. Vogt is a pleasant 84-year-old gentleman with history of type 2 diabetes and neuropathy who presents for routine nail care. He does have tingling and burning in his feet which he associates with neuropathy. He takes gabapentin for this problem. Today he complains of a crack in the skin under the right 5th toe. He has been using lotrimin cream but doesn't think it has helped. [facility] Medical History (Updated 07/20/24 @ 14:08 by MOMO Ho) Chronic osteomyelitis of right foot ?M86.671 - Other chronic osteomyelitis, right ankle and foot (ICD-10) Non-pressure chronic ulcer of other part of left foot with unspecified severity ?L97.529 - Non-pressure chronic ulcer of other part of left foot with unspecified severity (ICD-10) Hypothyroidism ?E03.9 - Hypothyroidism, unspecified (ICD-10) Acute renal insufficiency ?N28.9 - Disorder of kidney and ureter, unspecified (ICD-10) Iron deficiency anemia ?D50.9 - Iron deficiency anemia, unspecified (ICD-10) Cellulitis of foot, right ?L03.115 - Cellulitis of right lower limb (ICD-10) Diabetic ulcer of right fifth toe ?E11.621 - Type 2 diabetes mellitus with foot ulcer (ICD-10) ?L97.519 - Non-pressure chronic ulcer of other part of right foot with unspecified severity (ICD-10) HLD (hyperlipidemia) ?E78.5 - Hyperlipidemia, unspecified (ICD-10) Diabetic infection of right foot ?E11.628 - Type 2 diabetes mellitus with other skin complications (ICD-10) ?L08.9 - Local infection of the skin and subcutaneous tissue, unspecified (ICD-10) Neuropathy ?G62.9 - Polyneuropathy, unspecified (ICD-10) Fracture, ankle ?S82.899A - Other fracture of unspecified lower leg, initial encounter for closed fracture (ICD-10) Benign prostate hyperplasia ?N40.0 - Benign prostatic hyperplasia without lower urinary tract symptoms (ICD-10) Hypertension ?I10 - Essential (primary) hypertension (ICD-10) Diabetes ?E11.9 - Type 2 diabetes mellitus without complications (ICD-10) Surgical History (Updated 07/06/23 @ 11:11 by Asha Erickson NP) History of colonoscopy ?Z98.890 - Other specified postprocedural states (ICD-10) H/O rotator cuff surgery ?Z98.890 - Other specified postprocedural states (ICD-10) History of toe surgery ?Z98.890 - Other specified postprocedural states (ICD-10) History of appendectomy ?Z90.49 - Acquired absence of other specified parts of digestive tract (ICD-10) Hx of tonsillectomy ?Z90.89 - Acquired absence of other organs (ICD-10) Family History (Updated 07/06/23 @ 11:11 by Asha Erickson NP) Mother Family history of cancer Father Family history of stroke Other Family history of aneurysm Social History (Updated 07/21/23 @ 13:32 by Ness Blunt RN) Within the past year, how often did you have a drink containing alcohol: never Score interpretation: A score less than 4 is consistent with normal alcohol consumption. 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[employer] Known occupational exposures/hazards: No Highest level of school completed/degree received: Bachelor's degree Are you now , , , , never or living with a partner: Little interest or pleasure in doing things: not at all Feeling down, depressed, or hopeless: not at all Feel stressed/tense/nervous/anxious/difficulty sleeping: not at all Do you think of yourself as: straight/heterosexual Gender Identity: male Meds Home Medications and Allergies Home Medications ?Medication ?Instructions ?Recorded ?Confirmed ?Type gabapentin 300 mg capsule 300 mg PO TID 03/08/23 07/22/23 History glipizide 2.5 mg tablet, extended 2.5 mg PO QAM 03/08/23 07/22/23 History release 24 hr lisinopril 20 mg tablet 20 mg PO .qhs 03/08/23 07/22/23 History lovastatin 40 mg tablet 40 mg PO .qhs 03/08/23 07/22/23 History tamsulosin 0.4 mg capsule 0.4 mg PO Q24H 03/08/23 07/22/23 History amlodipine 5 mg tablet 5 mg PO QNOON 07/06/23 07/22/23 History antiarthritic combination no.2 900 900 mg PO DAILY 07/06/23 07/22/23 History mg tablet (glucosamine-chondroitin) aspirin 81 mg tablet,delayed 81 mg PO DAILY 07/06/23 07/22/23 History release (Adult Aspirin Regimen) multivitamin (Daily Multi-Vitamin 1 tab PO DAILY 07/06/23 07/22/23 History tablet) turmeric 400 mg capsule 400 mg PO DAILY 07/06/23 07/22/23 History cephalexin 500 mg capsule 500 mg PO BID 14 days #28 caps 07/22/23 Rx hydrocodone 5 mg-acetaminophen 325 1 tab PO Q8H PRN pain 7 days #21 07/22/23 Rx mg tablet tabs apixaban 5 mg tablet (Eliquis) 5 mg PO BID 30 days #60 tabs 01/30/24 Rx metoprolol succinate 25 mg 25 mg PO DAILY #20 tabs 01/30/24 Rx tablet,extended release 24 hr (Toprol XL) nitrofurantoin 100 mg PO BID 7 days #14 caps 03/11/24 Rx monohydrate/macrocrystals 100 mg capsule (Macrobid) Allergies Allergy/AdvReac Type Severity Reaction Status Date / Time ciprofloxacin (From Cipro) Allergy Severe Rash Verified 01/30/24 16:58 Sulfa (Sulfonamide Allergy Severe Rash Verified 01/30/24 16:58 Antibiotics) Exam Narrative: Exam Narrative: Dermatologic: Mild maceration of the interdigital wepspace between toes 4/5 on the right with a slight crack in the skin under the 5th toe. Skin is otherwise diffusely dry, thin, and shiny. There is a callus over the lateral left foot, just lateral to the fifth metatarsal head. No ulceration at the base. Vascular: PT pulses are nonpalpable bilaterally, DP pulses are faintly palpable. Capillary refill is brisk. Digital hair is absent bilaterally. Ankle edema noted bilaterally. Neurologic: Protective sensation is absent, vibratory sensation absent, Achilles deep tendon reflexes absent bilaterally. Musculoskeletal: Partial amputation of left toes #2 and 4, partial amputation of right toe #4. No pain with palpation. Assessment and Plan Assessment and Plan (1) Type 2 diabetes mellitus with diabetic neuropathy, unspecified: (2) Tinea unguium: (3) Acquired absence of other left toe(s): (4) Acquired absence of other right toe(s): Plan Mr. Vogt is a pleasant 84-year-old gentleman with history of type 2 diabetes and neuropathy with previous nontraumatic toe amputations. He presents for routine nail care today. He has mild tinea pedis of the right 4/5 webspace. Betadine dispensed for him to apply daily x 7 days. Follow-up in 3 months, sooner if the tinea pedis does not resolve or if he develops any other concerns. Acute Procedures Podiatry Nail Debridement Class A Findings Class A findings: non-traumatic amputation of foot or integral skeletal portion thereof Class B Findings Absent posterior tibial pulse: bilateral Advanced trophic changes as evidenced by any three of the following: decreased hair growth, nail changes (thickening) and skin texture (thin or shiny) Class C Findings Claudication: No Temperature changes: Yes Edema: Yes Nail debridement paresthesia (abnormal spontaneous sensations in the feet): Yes Burning: Yes Qualifies If: Qualifiers If:: A patient qualifies for nail debridement if they have: 1 class A finding (Q7) 2 class B findings (Q8) OR 1 class B & 2 class C findings in addition to a primary condition (Q9) Nail Procedure Nail Procedure Time out: Yes Nail procedure: other (Toenail debridement bilateral feet, callus paring left foot) Number of affected nails: 7 Location (toes): left and right Procedure successful: Yes Patient tolerated procedure: well and no complications Additional comments: The toenails of the patient's remaining toes were trimmed with nail nippers without incident.
== END 2024-10-19 14:15 | disposition home or self-care (01) ==
LOC: WC 14:15
PROVIDERS: PCP Internal Medicine; Visit Provider Physician Assistant
DX: B35.1 Tinea unguium (principal); E11.40 Type 2 diabetes mellitus with diabetic neuropathy, unspecified; Z89.422 Acquired absence of other left toe(s); Z89.421 Acquired absence of other right toe(s)
CPT/HCPCS: 11721

== ENCOUNTER 2025-01-23 07:32 | Outpatient (OUT) | payer MEDICARE, SELFPAY ==
--- OUTSIDE RECORDS SUMMARY | 2024-04-27 08:40 | XMS_ITS ---
Author Organization The [facility] in [place] Address [address] [place] [address] Care Team Providers Care Logistics Tech Name Role Phone Campbell Naranjo DO Primary Care Provider Unavaila Randa Carrillo Unavailable [phone] REASON FOR VISIT Nail Care Encounters Encounter Location Date Provider Diagnosis [facility] (PODIATRY) [address] [place] [address] [place] [address] 04/27/2024 Randa Gaston Plan Of Treatment No Information Progress Notes * Norberto WASHINGTONDOB:1940 (84 yo M)Acc No.[id number]:04/27/2024 UNLOCKED PROGRESS NOTE Nurse Visit Patient: Norberto GILLIAM :?RITU HoCDOB:1940???Age:84 Y ???Sex:MaleDate:04/27/2024Phone:[phone]:[address] [id number]:Morgan Rodríguez In:01:35 PM ESTCheck Out:02:05 PM EST Subjective: * Chief Complaints: * 1 . Nail Care. * Medical History: Objective: * Vitals: Assessment: Plan: * Treatment: * * Electronic signature of Randa Gaston PA-C on 01/23/2025 at 07:41 AM ESTSign off status: PendingVisit Status:?CHK (Check Out) * Provider: Andrew Gaston PA-C Date: 0 04/27/2024 Generated for Printing/Faxing/eTransmitting on:?01/23/2025 07:41 AM EST
--- OUTSIDE RECORDS SUMMARY | 2025-01-22 04:08 | XMS_ITS | Continuity of Care Document ---
Author Organization [facility] Address [address] [place] [address] Phone Care Team Providers Care On Call Pharmacy Technician Name Role Phone Campbell Naranjo DO Primary Care Provider [phone] Campbell Naranjo DO Attending Provider [phone] Care Teams Patient Care Team Team Status: Active Member Role/Relationship Status Dates Campbell Naranjo DO Primary Care Provider Active Visit Care Team Team Status: Inactive Member Role/Relationship Status Dates Campbell Naranjo DO Primary Care Provider Active Start: December 19, 2024 End: December 19Ivon Bolanos ProviderActiveStart: December 19, 2024 End: December 19, 2024 Patient Care Team Team Status: Inactive Member Role/Relationship Status Dates Campbell Naranjo DO Primary Care Provider Active Start: January 22, 2025 End: January 22Ivon Bolanos ProviderActiveStart: January 22, 2025 End: January 22, 2025 Chief Complaint and Reason for Visit Chief Complaint Admit Date BP concern December 19, 2024 1: 05pm Mdc Wellness-HIGH RISK January 22 8:29am Reason for Visit Admit Date Anemia December 19, 2024 1: 05pm Aortic stenosis, mild December 19, 2024 1:05pm Atrial flutter December 19, 2024 1: 05pm Bradycardia December 19, 2024 1: 05pm Chronic kidney disease December 19, 2024 1:05pm HTN (hypertension) December 19, 2024 1: 05pm Type 2 diabetes mellitus with hyperglyce francisco December 19, 2024 1:05pm Anemia January 22, 2025 8:29am Aortic stenosis, mild January 22 8:29am Atrial flutter January 22, 2025 8:29am Bradycardia January 22, 2025 8:29am Chronic kidney disease January 22 8:29am Chronic venous insufficiency of lower ex tremity January 22, 2025 8:29am Elevated cholesterol January 22, 2025 8:29am HTN (hypertension) January 22, 2025 8:29am Medicare annual wellness visit, subseque nt January 22, 2025 8:29am Overweight January 22, 2025 8:29am Subclinical hypothyroidism January 8:29am Type 2 diabetes mellitus with diabetic p olyneuropathy January 22, 2025 8:29am Type 2 diabetes mellitus with hyperglyce francisco January 22, 2025 8:29am Allergies, Adverse Reactions, Alerts Allergen Type Severity Reaction Last Updated Verified Status ciprofloxacin Allergy Unknown Hives January 222024 8:31am Yes Active Sulfa (Sulfonamide Antibiotics) Allergy Unknown Hives January 22 8:31am Yes Active Social History Smoking Status Status Start Date End Date Date of Observa tion Never smoked tobacco (finding) March 14, 2024 3:10pm Observation Status Observation Response Date of Response Legal Sex Male (finding) [facility] 1940 Family History Relationship Condition Age at Onset Recorded Date/T augusta father Heart disease Unknown DeceasedUnknownmotherDeceasedUnknownMalignant neoplasmUnknownbrotherSyncope UnknownRenal failureUnknownsisterBalance problemsUnknown Problems Active Problems Problem Diagnosis/Recorded Date Onset Date Status C omments Balanitis September 21, 2024 9:06am Unknown Active Chronic venous insufficiency of lower extremityMarch 2023 9:09pmUnknown ActiveMedicare annual wellness visit, subsequentOctober 2023 10:08am UnknownActiveType 2 diabetes mellitus with hyperglycemiaMarch 2023 9:09pm UnknownActiveType 2 diabetes mellitus with diabetic polyneuropathyJuly 2023 6:13amUnknownActiveSubclinical hypothyroidismDecember 2023 4:13pmUnknown ActiveFatigueOctober 2024 8:00pmUnknownActiveElevated cholesterolApril 2023 7:25amUnknownActiveAnemiaJanuary 2024 9:10amUnknownActiveAtrial flutterNovember 2023 10:44pmUnknownActiveEchocardiogram: LVEF 65%, normal RV size/function, LISA, mild , RVSP 36 - 10/4CHADs VASc = 4 (age > 75, HTN, Diabetes)BradycardiaOctober 2024 12:41pmUnknownActiveDysuriaJuly 2024 8:52amUnknownActiveChronic kidney diseaseApril 2023 7:27amUnknownActive Benign localized hyperplasia of prostate with urinary retentionMarch 2023 10:58amUnknownActiveOverweightApril 2023 9:05amUnknownActiveChronic stasis dermatitisMarch 2023 10:58amUnknownActiveAortic stenosis, mildNovember 2023 10:51pmUnknownActiveEchocardiogram: LVEF 65%, normal RV size/function, LISA, mild , RVSP 36 - 10/4Carotid US: <50% B/L ICA - 10/2021 HTN (hypertension)December 11, 2021 4:01pmUnknownActiveInactive/Resolved Problems Problem Diagnosis/Recorded Date Onset Date Status C omments Malfunction of Smith catheter December 11, 2021 5:12pm Unknown Resolved Prob jenni List clean-up per request of Phys. EHR Cmte Increased urinary frequency December 17, 2021 5:13pm Unknown Resolved Problem List clean-up per request of Phys. EHR Cmte Cellulitis May 15, 2023 12:31pm Unknown Resolved Urinary hesitancyOctober 2021 5:13pmUnknownResolvedProblem List clean-up per request of Phys. EHR CmteOsteomyelitis of right footApril 2023 5:42am esolved Medications Medication Status Dose Units Route Directions Qty Days Refills S tart Date Stop Date End Date Reason(s) Instructions Adherence Amlodipine 5 mg tablet Discontinued 5 MG PO Daily 30 30 0 May 08, 2023 12:02pm May 21, 2023 11:03amAmlodipine 5 mg tabletDiscontinued0.ROUTE.PTOTVFF524Npinn 2023 4:07pmMay 2023 10:01amTAKE 1 TABLET BY MOUTH DAILY FOR 30 DAYS Lisinopril 20 mg cisrrpMagxtieyenxg65TTAVGojbg71274Swxic 2023 11:03amJune 2023 7:20amLovastatin 40 mg tkedzoJowfosyritkq00ILGINsrto38591Kjqqx 2023 11:03amMarch 2024 4:09pmTamsulosin 0.4 mg capsuleDiscontinued0.4MGPO Twice gvxtw510608Bnwcs 2023 11:04amApril 2023 8:54amLisinopril 20 mg tabletDiscontinued0.ROUTE.FLHDUWB559Fbro 2023 7:20amOctober 2023 7:54amTAKE 1 TABLET DAILYTamsulosin 0.4 mg capsuleActive0.ROUTE.CLUKKZR7771Kfju 2023 7:41amTAKE 1 CAPSULE TWICE DAILYComplies with drug therapyGabapentin 300 mg capsuleDiscontinued0.ROUTE.HIFFJUY5173Cewvqta 2023 6:29pmJanuary 2024 7:40amTAKE 1 CAPSULE 3 TIMES A DAYGabapentin 300 mg capsule Discontinued0.ROUTE.COJXPGR3736Rivkyuv 2024 7:40amJuly 2024 8:35am TAKE 1 CAPSULE 3 TIMES A DAYCephalexin 500 mg xpgvqvvUusqpipfjioj637ZOIRDlcoe times mrwhd41430Xqdoybcg 2024 12:00amMarch 2024 8:58amApixaban (Eliquis) 5 mg izvlwmJjbeyjakeorc6NXVWEqfrf wfszf430570Brtmiczs 2024 9:45amAugust 2024 8:08amMetoprolol Succinate 25 mg tablet extended release 24 wwPzdrduizohsh37.5VAVKEcpds25805Okiflteo 2024 12:00amMarch 2024 9:00amLisinopril 5 mg pscefuZylsxkvildyv1UFIKFwhdx65616Dppkixpp 2024 12:00amApril 2024 3:19pmGlipizide 2.5 mg tablet extended release 24hrActive 2.5ALTXNdsjp92812Xksia 2024 12:19pmComplies with drug therapyLovastatin 40 mg tabletActive0.ROUTE.IXZVUON876Wncif 2024 4:09pmTAKE 1 TABLET EVERY EVENINGComplies with drug therapyLisinopril 5 mg bodcehMorfnxuddois6RGZZOagcg85 901April 2024 3:18pmApril 2024 1:44pmGabapentin 300 mg capsuleActive0 .ROUTE.SYDOLFA6400Lpnk 2024 8:35amTAKE 1 CAPSULE 3 TIMES A DAYComplies with drug therapyApixaban (Eliquis) 5 mg fbuhipEfqnfd7XZDHSmyoe qhomo520618 October 23, 2024 8:03amComplies with drug therapyMetoprolol Succinate 25 mg tablet extended release 24 gfGjbkjizjloil31FKGKTfxuz82290Gecyga 2024 8:57amAugust 2024 2:15pmMetoprolol Succinate 25 mg tablet extended release 24 tuCdiazq20YGCGTgsxc42567Gtnueo 2024 2:15pmComplies with drug therapy Lisinopril 5 mg tvsucpDhpuhrdloybl87VMXSGqzrz721646Wxlwjpc 2024 4:36pm December 26, 2024 11:55amLisinopril 10 mg gsqvgpRgjdkwyklqra79UJFRWfegz11696 December 26, 2024 11:54amNovember 2024 8:37amCephalexin 500 mg Capsule Asitezhserri911FUNUG6A7009Czajmyteq 2021 11:00pmOctober 2021 4:10pm Lisinopril 20 mg rsmoyvWxipcmsuwkln47JQSTRcxgoLqkpmzirf 2021 11:00pmMarch 2023 11:03amLovastatin 40 mg cejuxxRpujivxjaxnt22XEXBLnyeyCmsqvgbbu 2021 11:00pmApril 2023 11:04amAmlodipine 2.5 mg gupqtmBgmdfxroywtr9DHDT DailySeptember 2021 11:00pmFebruary 2023 12:04pmGlipizide 2.5 mg tablet extended release 30ivHirltnhooafd8.5MGPODailySeptember 2021 11:00pm August 04, 2023 10:01amGabapentin 300 mg sykojptJsedwhbqjsfq515VKSOSsabyEqvdtbqtb 28th, 2022 11:00pmMay 2023 9:51amAspirin 81 mg LohhrnjPsyzro23RXIMHsauq Codi 2021 11:00pmComplies with drug therapyLisinopril 20 mg tablet Roihbfqlgite20SUHRTgybePpfvl 2023 11:01amApril 2023 11:04am Trimethoprim 100 mg cgvtmgAgtxzgtvoojz216CQQEEopcu dailyOctober 2021 11:00pmMarch 2023 11:03amTamsulosin 0.4 mg capsuleDiscontinued0.4MGPOTwice dailyOctober 2021 11:00pmApril 2023 11:04amAmoxicillin-Pot Clavulanate 875-125 mg fakcsvVteqrmehzdgs0BLJFHUoefi zhjef480Rgdyn 2023 12:00amMarch 2023 11:00amGlucosamine Hcl 500 mg dwvbmkPmjrplnqkchy701ZAYPRxociOxzqp 2023 12:00amFebruary 2024 1:13pmadminister with a meal Methylsulfonylmethane (Msm) 1,000 mg hoatzhhCkgggkhcrycy8796UYHODmrrt dailyClara Maass Medical Centerch 2023 12:00amDeceer 2023 2:59pmMultivitamin (Daily Multi-Vitamin) eyxjlmJmbqfi3ICCVGSfortRchhr 2023 12:00amComplies with drug therapyTurmeric Root-Yulisa Root Ext 150-25 mg tablet,chewableDiscontinuedTABPOMawvumedicine [facility] 2023 12:00amDecember 2023 3:00pmGlucosamine Hcl 500 mg uohekfZrlbmm0472KIRA DailyFebruary 2024 1:11pmadminister with a mealComplies with drug therapy Gabapentin 300 mg vytmvkcNackzzyiidpo806XRMJZdwfc times dailyAk2023 11:00pmMay 2023 10:01amGabapentin 300 mg osfmpuqYmpruugvpbhr496FDDFUhbbz times xvlvl133768Bwt 2023 10:00amOctober 2023 6:29pmGlipizide 2.5 mg tablet extended release 07hyEkwhsllfsnif7.2QNDIBmcsk45612Cae 2023 10:00am May 15, 2024 12:19pmAmlodipine 5 mg adzbixOuhddguokgzk7AGVLUoaih34247Mwh 2023 10:01amOctober 2023 7:40amApixaban (Eliquis) 5 mg tablet Xhofqpdksihl7HGVKVvsol dailyHarrison [facility] Hospital 2023 12:00amNoveer 2023 2:06pmApixaban 2.5 mg tabletDiscontinued2.5MGPOTwice uybcr64666Hodkzour 2023 2:06pmH[facility] Hospital 2023 9:27pmApixaban 5 mg rfjmxjWihwarxkvypi5DSWOChwur rzouy32136Ymjxofef 2023 9:27pmDeceer 2023 2:57pmApixaban (Eliquis) 2.5 mg tabletDiscontinued2.5MGPOTwice dailyDejohn d. [facility]2023 12:00amFebruary 2024 1:13pmLisinopril 10 mg lupavzTgyygcvswfcm52DKPVXlxnc dailyce2023 12:00amFebruary 2024 1:13pmTurmeric Root Extract 500 mg tablet Gdhyuo593DDVJGjpmnFfvmwylj 31st, 2024 12:00amComplies with drug therapy Nitrofurantoin Monohyd/M-Cryst (Macrobid) 100 mg ohkpcinOgkoqldlgtwg961DZVVIpsjs dailyDece2023 12:00amFebruary 2024 1:12pmmust administer with a meal/foodLisinopril 10 mg cvstncSjdxhcyznbex47CCBJIjdwfYfizexxe 2024 1:10pmFebruary 2024 2:02pmApixaban (Eliquis) 2.5 mg nyxyprTqckifgunwia0NF POTwice dailyFebruary 2024 1:12pmFebruary 2024 2:03pmLisinopril 5 mg jrlzluOhzficxgklif7WKVGImuryMyjg 2024 11:00pmJune 2024 9:56am Lisinopril 5 mg huzbclFtjbrgebqitv8WJSPJtdpl02516Dphi 2024 9:55amOctober 2024 4:37pmMetoprolol Succinate 25 mg tablet extended release 24 hr Npbuyyqxincg81ACSQOfwqsUkkph 2024 8:58amAugust 2024 8:57amLisinopril 10 mg zsybsySbnjks64YMUAEsexqXdvrgwtq 2024 8:36amUnknownTamsulosin 0.4 mg capsuleDiscontinued0.4MGPODaily at bedtimeApril 2023 8:53amJuly 2023 7:41amAmlodipine 5 mg lkieppYsvyktcuxnwr8PYSACsdmn63850Kymga 2023 11:00pm May 31, 2023 4:07pmVitamins A,C,S-Eurj-Ttcqih (Preservision Areds) 4,296 mcg-226 mg-90 mg schdccnFjjdmj9USPZBMxfwe dailyOctober 2023 11:00pm Complies with drug therapyLisinopril 20 mg zzkailDhnlrxgfvgck26AV.ROUTETwice sogem846Czyddqw 2023 7:41amDecember 2023 2:59pm10 mg twice daily; Apixaban (Eliquis) 5 mg oxvjzcDtrnkqiztwer3SOBYLtrrm dailyFebruary 2024 12:00amFebruary 2024 1:59pmMetoprolol Succinate 25 mg tablet extended release 24 lbWjxhwghhgkvv47CESDTnwwb90630Amoekwdc 2024 12:00amFebruary 2024 3:42pmApixaban (Eliquis) 5 mg szrdnrPlmmppkioyqk1WGTZWnksr carqy33224 1F[facility] 2024 12:00amFebruary 2024 9:45amClotrimazole-Betamethasone 1-0.05 % hifanVaosel1AVIZNTYYNDBQOJndcf ordeg77033Lhth 2024 11:00pmComplies with drug therapy Immunizations Immunization Event Date Not Given Reason 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 Number Reason(s) Given Vaccine Information Statement (VIS) Detail Administration Location COVID-19 mRNA, Comirnaty (Selenokhod) April 08, 2020 [id number] mRNA, Comirnaty (Selenokhod)May [id number]-75 mRNA, Comirnaty (Selenokhod)December 09, [id number]-19 Comirnaty (Selenokhod) Tri- Sucrose June 16, [id number] mRNA Bivalent Booster (Selenokhod)December 18, 2021GJ6665DTap, unspecifiedNovember 2011Fluzone TIV High-Dose 65YR+ December 15, 2023UT8437BAOhio State University [facility]xner Medical CenterFluzone TIV High-Dose 65YR+ January 22, 2025U8859CAAvita Health System QIV High-Dose 65YR+ December 09, 2020UJ742AAInfluenza, trivalentNovember [id number] Influenza, trivalentOctober [id number] vaccine, quadrivalent, adjuvantedOctober [id number], unspecified formulationJanuary 2016influenza, unspecified formulationOctober 2016influenza, unspecified formulationNovember 2017influenza, unspecified formulationOctober 2019influenza, unspecified formulationSeptember 2020influenza, unspecified formulationOctober 2021influenza, unspecified formulationSeptember neumococcal Conjugate Vaccine, 13 valentFebruary 2015Pneumococcal Polysacc. Vaccine, 23 valentMarch 2011Pneumococcal Polysacc. Vaccine, 23 valentNovember 2011Quadrivalent InfluenzaSeptember 2017RSV, preF3, adj, pfJuly [id number] Vaccine Recombinant, AdjuvantedAugust [id number] Vaccine Recombinant, AdjuvantedNovember [id number], Diphtheria adult, 5 Lf pres free absOctober 2012 Vital Signs Vital Reading Result Reference Range Collection Date/Time Height 75 [in_i] December 19, 2024 12:89gfTjsrup124.77 kgOctober 2024 12:17pmHeart Rate62 /rmk78-604Wjgczmb 2024 12:17pmRespiratory rate12 /ukm36-05Rlxmuiq 2024 12:17pmBP Omgwltky196 mm[Hg]100-140October 2024 12:17pmBP Ccocdpzhq50 mm[Hg]60-100Octcaldwell medical center 2024 12:17pmBMI (Body Mass Index)28.0 kg/b3Glpadgu 2024 12:61lhGuhftk55 [in_i]January 22, 2025 8:09tdCdowgu21.33 kgNovclearsky rehabilitation hospital of [facility] 2024 8:31amHeart Rate59 /ren57-287Jzxpioxa 2024 8:31amRespiratory rate12 /rbz45-65Vfdbegri 2024 8:31amOxygen saturation by Pulse ezzkfyna211 %95-100Novclearsky [facility] 2024 8:31amBP Bteloxsz755 mm[Hg]100-140Novcle[facility]ky [facility] 2024 8:31amBP Njsnkfvgr26 mm[Hg]60-100Novcle[facility] 2024 8:31amBMI (Body Mass Index)27.3 kg/r4Dbedwuvb 2024 8:31am Advance Directives Advance Directive Response Recorded Date/ Time Advance Directives No November 5:09pm Insurance Providers Guarantor Norberto Vogt Address [address] [id number] Info.Home Phone: Payer Group Member ID Coverage Type Subscriber Relationship to Subscriber Effective Date Expiration Date Calli VALENCIA [id number] F Hart Id: [id number] [address] [address] Home Phone: Email: [email or web address] Encounters Encounter Location(s) Arrival/Admit Date Discharge/Departure Date Discharge/Departure Disposition Provider(s) Departed Physician/ Provider [facility] Visit -[facility] December 19, 2024 1:05pm December 19, 2024 1:37pm Discharged to home care or self care (routine discharge) Campbell Naranjo DO Departed Physician/ Provider Office Visit -[facility] January 22, 2025 8:29am January 22, 2025 9:06am Discharged to home care or self care (routine discharge) Campbell Naranjo DO Recent Diagnosis Onset Date Admit Date Anemia Unknown December 19 1:05pm Aortic stenosis, mild Unknown December 1:05pm Atrial flutter Unknown December 19 1:05pm Bradycardia Unknown December 19 1:05pm Chronic kidney disease Unknown December 192024 1:05pm HTN (hypertension) Unknown December 19, 2024 1:05pm Type 2 diabetes mellitus with hyperglycemia Unkn own December 19, 2024 1:05pm Anemia Unknown January 22, 8:29am Aortic stenosis, mild Unknown January 132024 8:29am Atrial flutter Unknown January 22, 025 8:29am Bradycardia Unknown January 22 8:29am Chronic kidney disease Unknown January 22, 2025 8:29am Chronic venous insufficiency of lower extremity Unknown January 22, 2025 8:29am Elevated cholesterol Unknown January 222024 8:29am HTN (hypertension) Unknown January 8:29am Medicare annual wellness visit, subsequent Unkno wn January 22, 2025 8:29am Overweight Unknown January 22 8:29am Subclinical hypothyroidism Unknown Novem 2024 8:29am Type 2 diabetes mellitus wit h diabetic polyneuropathy Unknown January 22, 2025 8:29am Type 2 diabetes mellitus with hyperglycemia Unkn own January 22, 2025 8:29am Assessments Diagnosis Onset Date Resolution Status Admit Date Anemia acuteOct2024 1:05pmAortic stenosis, mildacuteOctober 2024 1:05pm Atrial flutteracuteOct2024 1:05pmBradycardiaacuteOctober 2024 1:05pmChronic kidney diseaseacuteOctober 2024 1:05pmHTN (hypertension)acute December 19, 2024 1:05pmType 2 diabetes mellitus with hyperglycemiaacuteOctober 2024 1:05pmAnemiaacuteJanuary 22, 2025 8:29amAortic stenosis, mildacute January 22, 2025 8:29amAtrial flutteracuteNovember 2024 8:29am BradycardiaacuteJanuary 22, 2025 8:29amChronic kidney diseaseacuteJanuary 22, 2025 8:29amChronic venous insufficiency of lower extremityacuteJanuary 22, 2025 8:29amElevated cholesterolacuteJanuary 22, 2025 8:29amHTN (hypertension)acuteJanuary 22, 2025 8:29amMedicare annual wellness visit, subsequentacuteJanuary 22, 2025 8:29amOverweightacuteJanuary 22, 2025 8:29amSubclinical hypothyroidismacuteJanuary 22, 2025 8:29amType 2 diabetes mellitus with diabetic polyneuropathyacuteJanuary 22, 2025 8:29amType 2 diabetes mellitus with hyperglycemiaacuteJanuary 22, 2025 8:29am Plan of Treatment [facility] 7:02amI have instructed the patient to inspect their [...] Continue Glipizide without interruption A1C < 6% Ventricular rate of 142 bpm. Spontaneously converted to NSR during ER visit CHADs VASc = 4 (age > 75, HTN, Diabetes) Echocardiogram: LVEF 65%, normal RV size/function, LISA, mild , RVSP 36 - 12/2023 Continue Eliquis without interruption (samples given) I have instructed this patient to consume a healthy, low-fat, low-salt diet. I have also encouraged them to continue exercise with weight loss to achieve/maintain a BMI < 30. I have instructed this patient on the correct procedure for obtaining home BP measurements:? - rest for 5 minutes w/o talking. - positioned w/ feet on floor and arms supported. - average best 2/3 readings w/ goal < 135/85. - update office w/ home readings in 2 weeks. Continue Metoprolol bid without interruption - stopped Lisinopril - Tamsulosin may be contributing to symptoms - checking BP in afternoon Echo: LVEF 65%, LISA, normal RV size/function, RVSP 33 : - ALPHONSE 1.8 cm2 - gradient 15/9 mmHg - velocity 1.99 m/s Denies CP but does have symptoms or tachycardia and lightheadedness - monitor for now I instructed this patient on the benefits [...] FT4 is suppressed or TSH > 10 Normal Fe, FA and B12 in recent past. Denies any s/s GIB Continues DOAC for Atrial Fib/Flutter Continue to monitor No CRAB features Symptomatic, medication induced bradycardia. Instructed to decrease Metoprolol to 12.5mg q HS Monitor BP/HR and record for review Plan to d/c Metoprolol if HR remains < 60. May require adjustment of Lisinopril if SBP > 140 I have instructed this patient on the recommended lifestyle changes, which includes a low fat, high fiber diet along with a regular exercise routine. I have also reviewed the recommended age-appropriate preventive testing for this patient. I have also reviewed the recommended vaccines for their age and risk factors. I have instructed this patient on a low-fat, high-fiber diet.?? I have also instructed them to reduce calories, portions sizes, sweet drinks and snacks.?? I have also recommended they exercise for 30 minutes, 3-5 times weekly. They are aware of the comorbid conditions associated with excessive weight: Diabetes, HTN, Hyperlipidemia, CAD and arthritis. Author Campbell Naranjo [facility] CenterAuthoredOctober 2024 12:44pmI have instructed this patient to follow a [...] Continue Glipizide without interruption A1C < 6% Ventricular rate of 142 bpm. Spontaneously converted to NSR during ER visit CHADs VASc = 4 (age > 75, HTN, Diabetes) Echocardiogram: LVEF 65%, normal RV size/function, LISA, mild , RVSP 36 - 12/2023 Continue Eliquis without interruption (samples given) I have instructed this patient to consume a healthy, low-fat, low-salt diet. I have also encouraged them to continue exercise with weight loss to achieve/maintain a BMI < 30. I have instructed this patient on the correct procedure for obtaining home BP measurements:? - rest for 5 minutes w/o talking. - positioned w/ feet on floor and arms supported. - average best 2/3 readings w/ goal < 135/85. - update office w/ home readings in 2 weeks. Continue Metoprolol bid without interruption - stopped Lisinopril - Tamsulosin may be contributing to symptoms - checking BP in afternoon Echo: LVEF 65%, LISA, normal RV size/function, RVSP 33 : - ALPHONSE 1.8 cm2 - gradient 15/9 mmHg - velocity 1.99 m/s Denies CP but does have symptoms or tachycardia and lightheadedness - monitor for now I instructed this patient on the benefits [...] concerns. Microalbumin/creatinine = 12.8 GFR = 54 Normal Fe, FA and B12 in recent past. Denies any s/s GIB Continues DOAC for Atrial Fib/Flutter Continue to monitor No CRAB features Symptomatic, medication induced bradycardia. Instructed to decrease Metoprolol to 12.5mg q HS Monitor BP/HR and record for review Plan to d/c Metoprolol if HR remains < 60. May require adjustment of Lisinopril if SBP > 140 Future Tests Future scheduled test information is unavailable Pending Tests Test Name Ordered Date Scheduled Date Comprehensive Metabolic Panel December 19, 2024 7:54pm Future Visits Future appointment information is unavailable Future Procedures Procedure Name Ordered Date Scheduled Date A1C with Estimated Average Glu December 19, 2024 7:57pm Vitamin D63Fbfmnfv 2024 7:54pmComplete Blood Count Auto DiffOctober 2024 7:54pmFerritinOctober 2024 7:54pmFolateOctober 2024 7:54pm Immunofixation,SerumOctober 2024 7:54pmFree K+L LT Chains, Qn, SOctober 2024 7:56pmLipid PanelOctober 2024 7:54pmMicroAlb Creat Ratio,UOctober 2024 7:57pmProtein Electrophoresis, SerumOctober 2024 7:56pmThyroid Stim Hormone w/RflxOctober 2024 7:54pm Future Medications Future medication information is unavailable Patient Instructions Patient instructions are unavailable
--- OUTSIDE RECORDS SUMMARY | 2025-01-23 07:41 | XMS_ITS | Patient Health Record ---
Author Organization [facility] in [place] Address [address] [place] [address] Care Team Providers [facility] Dr[employer] Operator Name Role Phone Campbell Naranjo DO Primary Care Provider Jhon Cassidy Unavailable [phone] Randa Gaston Unavailable [phone] Allergies Allergen (clinical drug ingredient) Drug/Non Drug Allergy documented on EMR Reaction Allergy Type Onset Date Status ciprofloxacin Cipro Unknown Drug Allergy ActiveSubstance with sulfonamide structure and antibacterial mechanism of action (substance)Sulfa AntibioticsUnknownDrug AllergyActive Reason For Referral No Information Medications Medication SIG (Take, Route, Frequency, Duration) Notes Start Date End Date Status Tamsulosin HCl 0.4 MG 1 capsule Orally Once a da y ActiveGlucosamineActiveglipiZIDE ER 2.5 MG1 tablet with breakfast Orally Once a dayActiveLovastatin 40 MG1 tablet with the evening meal Orally Once a dayActive Lisinopril 20 MG1 tablet Orally Once a dayActiveAspirin 81 MG1 tablet Orally Once a dayActiveamLODIPine BesylateActiveGabapentin 300 MG1 capsule Orally Once a dayActive Social History Tobacco Use: Social History Observation Description Date Details (start date - stop date) Former Smoker NA - NA Tobacco Use/Smoking Question Answer Notes Patient is a former smoker How long has it been since you last smoked?> 10 yearsAdditional Findings: Tobacco Non-UserCurrent non-smoker Problems Problem Type SNOMED Code ICD Code Onset Dates Problem Status W/U Status Risk Notes Problem Foot ulcer due to ty pe 2 diabetes mellitus (9793366311358) Type 2 diabetes mellitus with foot ulcer (E11.621) ActiveconfirmedProblemChronic pain (20488550)Other chronic pain (G89.29)Active confirmedProblemNon-pressure chronic ulcer of other part of right foot limited to breakdown of skin (L97.511)ActiveconfirmedProblemDyslipidemia (123175377) Dyslipidemia (E78.5)ActiveconfirmedProblemHypothyroidism (52185032) Hypothyroidism (E03.9)ActiveconfirmedProblemIron deficiency anemia (69516836) Anemia, iron deficiency (D50.9)ActiveconfirmedProblem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)ActiveconfirmedProblemFoot callus (381934923)Callus of foot (L84)ActiveconfirmedProblemLong-term current use of insulin (300088151) Long-term insulin use (Z79.4)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 (853909957)Type 2 diabetes mellitus with diabetic polyneuropathy, 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)Activeconfirmed ProblemEssential hypertension (81164841)BP (high blood pressure) (I10)Active confirmedProblemAcquired hammer toe of right foot (5557446987292330)Hammertoe of right foot (M20.41)ActiveconfirmedProblemArthritis of left foot (3813890662617129)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)ActiveconfirmedProblemChronic ulcer of great toe of left foot, limited to breakdown of skin (L97.521)Active confirmedProblemNon-pressure chronic ulcer of other part of right foot with muscle involvement without evidence of necrosis (L97.515)ActiveconfirmedProblem Non-pressure chronic ulcer of other part of right foot with other specified severity (L97.518)ActiveconfirmedProblemChronic ulcer of right great toe with fat layer exposed (L97.512)ActiveconfirmedProblemDelayed surgical wound healing of toe amputation stump (T87.89)ActiveconfirmedProblemDiabetes mellitus (18237242)Diabetes mellitus (E11.9)ActiveconfirmedProblemChronic ulcer of right foot (disorder) (64889890446246936)Chronic ulcer of right foot with fat layer exposed (L97.512)Activeconfirmed Vital Signs Heart Rate 74 /min 01/26/2024 Xepfwfbgwea29.9 degrees Sipxzcmueu11/13/7114Aejhaudg92 %01/26/20245309Deeqji99 in 01/26/2024 Encounters Encounter Location Date Provider Diagnosis [facility] ([facility]) [address] [place] [address] [place] [address] 01/26/2024 Jhon Tejada Type 2 diabetes mellitus with diabetic polyneuropathy, without long-term current use of insulin E11.42 and Hammertoe of right foot M20.41 [facility] (POD[facility]) [address] [place] [address] [place] [address] 04/27/2024 Randa Gaston Assessments Encounter Date Diagnosis (ICD Code) Assessment Notes Treatment Notes Treatment Clinical Notes Section Notes 01/26/2024 Type 2 diabetes patsy itus with diabetic polyneuropathy, without long- term current use of insulin (ICD-10 - E11.42) 01/26/2024Hammertoe of right foot (ICD-10 - M20.41) Plan Of Treatment No Information Insurance Providers Payer Name Payer Address Payer Phone Subscriber Number Group Number Insured Name Patient Relationship to Insured Coverage Start Date Coverage End Date [place] [address] [place] [address] [id number] Flex [employer] - patient is the [id number] 2003 Medical (General) History Medical History History ICD Code diabetes mellitus hypertensioniron deficiency anemiaSurgical History Surgery Date(Month/Year) bilateral partial toe amputations 2023
--- OUTSIDE RECORDS SUMMARY | 2025-01-23 07:41 | XMS_ITS | CCD ---
Author Organization [facility] Care Team Providers Care [place] Worker Name Role Phone Ran Houston Jr. Primary Care Provider Unava ilable RAN HOUSTON JR Primary Care Unavailable KEELY SANCHEZ Attending Unavailable CAMPBELL SAAVEDRA Primary Care Unavailable Campbell Saavedra DO Primary Care Provider DO Campbell Saavedra Primary Care Provider MD Davis Cervantes Emergency Provider DO Sam Simons Emergency Provider DO Sam Simons Attending Provider [phone] Campbell Saavedra Unavailable DR CAMPBELL SAAVEDRA Primary Care Unavailable BALL, DR SHERMAN Consulting [...] Unavailable MELISSA, DR SAMY Nieves Consulting Unavailable BALL, DR SHERMAN Admitting Unavailable BALL, DR SHERMAN Attending Unavailable BALL, DR SHERMAN Consulting Unavailable BALL, DR SHERMAN Primary Care Unavailable BALL, DR SHERMAN Admitting Unavailable BALL, DR SHERMAN Attending Unavailable BALL, DR SHERMAN Consulting Unavailable BALL, DR SHERMAN Primary Care Unavailable Cornell Baptiste Unavailable DO Campbell Saavedra Primary Care Provider Tupa, DO Low Ewing Emergency Provider Campbell Saavedra DO E Primary Care Provider Ball, DO Campbell Primary Care Provider Tupa, DO Low M Emergency Provider CHRISTIAN Tejada Attending Provider Campbell Saavedra DO Primary Care Provider Ball, DO Campbell Primary Care Provider Sterling Torres Admitting Unavailable Sterling Torres Attending Unavailable Campbell Saavedra MD Primary Care Provider CAMPBELL SAAVEDRA Primary Care Physician Sterling Torres Admitting Unavailable Sterling Torres Attending Unavailable Campbell Saavedra DO Primary Care Provider [phone] Pay DO, Juan Attending Provider Keely Hernandez MD Attending Provider Quentin BORREGO, Campbell Primary Care Provider Pay DO, Juan Attending Provider Keely Hernandez MD Attending Provider Quentin BORREGO, Campbell Primary Care Provider [phone] Quentin BORREGO, Campbell Attending Provider [phone] Keely Hernandez MD Attending Provider Campbell Saavedra DO Primary Care Provider Quentin BORREGO, Campbell Attending Provider CAMPBELL SAAVEDRA Primary Care Unavailable RUKHSANA, LETICIA D Attending Unavailable RUKHSANA, LETICIA D Referring Unavailable BALLCAMPBELL Primary Care Unavailable RUKHSANA, LETICIA D Attending Unavailable CAMPBELL SAAVEDRA E Primary Care Unavailable BALLCAMPBELL Primary Care Unavailable RUKHSANA, LETICIA D Attending Unavailable CAMPBELL SAAVEDRA Primary Care Unavailable RUKHSANA, LETICIA D Referring Unavailable PayJuan Admitting Unavailable PayJuan Attending Unavailable Campbell Saavedra Primary Care Unavailable Campbell Saavedra Admitting Unavailable Campbell Saavedra Primary Care Unavailable Campbell Saavedra Attending Unavailable Keely Hernandez Attending Campbell Lara Primary Care Unavailable Keely Hernandez Admitting Campbell Lara DO Primary Care Provider STERLING TORRES Attending Unavailable STERLING TORRES Attending Unavailable STERLING TORRES Attending Unavailable STERLING TORRES Attending Unavailable Campbell Saavedra DO Primary Care Provider Allergies Allergy ClassificationReported Allergen(s)Allergy TypeDate of OnsetReaction(s) Facility (20 sources)Ciprofloxacin; Translations: [CIPROFLOXACIN]Drug Hlgxexl32-11-9964XR Upset, hives, Weal (disorder)[facility] (20 sources)Sulfonamides (Antibiotic); Translations: [SULFA (SULFONAMIDE ANTIBIOTICS)]Propensity to adverse -[id number], [facility] (2 sources)Ciprofloxacin; Translations: [Cipro][facility]ergy[facility] (1 source)Sulfonamides (Antibiotic)Drug allergy (disorder)[facility] (1 source)Allergies ReconciledPropensity to adverse reactionsP[employer] Other (1 source)patient allergy list reviewed by nurse or physiciaPropensity to adverse gzmoywilc01-65-4020Xxcfajc:Workbooks Other (2 sources)Sulfonamides (Antibiotic); Translations: [sulfa drugs]Propensity to adverse reactions (disorder)Weal (disorder)[facility] (1 source)CiprofloxacinDrug Qftonat96-19-5230FhlbpigjmK[facility] (1 source)Sulfonamides (Antibiotic)Drug allergy (disorder)61-46-0831ZacvgvoivKettering Health Rep[facility] Medications Current Medications MedicationDrug Class(es)DatesSig (Normalized)Sig (Original)ascorbic acid 226 mg / beta carotene 31665 unt / cuprous oxide 0.8 mg / dl-alpha tocopheryl acetate 200 unt / zinc oxide 34.8 mg oral capsule (4 sources)Vitamin CStart: 04-73-9601ectl 1 capsule by mouth twice dailyVitamins A,C,Y-Rajj-Qgisqx (Preservision Areds) 4,296 mcg-226 mg-90 mg capsule Active 1 CAP PO Twice daily December 28, 2023 12:00am Complies with drug therapyaspirin 81 mg oral tablet (20 sources)Platelet Aggregation Inhibitor, Nonsteroidal Anti-inflammatory Drug Start: 69-38-2325ynezwzf 81 mg cap Aspirin Active 81 MG PO Daily December 11, 2021 12:00am 12/11/2021 ActiveStart: 27-55-7196gntw 1 capsule by mouth once dailyAspirin 81 mg Capsule Active 81 MG PO Daily December 11, 2021 12:00am Complies with drug therapyaspirin 81 MG chewable tablet 1 (one) time each day at the same time ActiveComment on above:Aspirin Active 81 MG PO Daily December 11, 2021 12:00ambetamethasone 0.5 mg/ml / clotrimazole 10 mg/ml topical cream (20 sources)Azole Antifungal, CorticosteroidStart: 43-92-8018Rdrvjalgwozl- Betamethasone 1-0.05 % cream Active 1 APPLIC TOPICAL Twice daily September 212:00am Complies with drug therapyClotrimazole-Betamethasone 1-0.05 % 1 application Externally three times a day Not-Taking/PRNcephalexin 500 mg oral capsule (20 sources)Cephalosporin AntibacterialStart: 04-21-2024 End: 69-12-1513bvvf 1 capsule by mouth twice dailycephALEXin (KEFLEX) 500 mg capsule Take 1 capsule by mouth two times a day for 10 days. 20 capsule 0 04/21/2024 05/01/2024 ActiveStart: 04-21-2024 End: 10-66-3019tvxq 1 capsule by mouth three times dailyCephalexin 500 mg capsule Discontinued 500 MG PO Three times daily April 21, 2024 1:00am May 22, 2024 9:58amStart: 07-23-2023 End: 02-24-5497skyv 1 capsule by mouth every twelve hourscephALEXin (KEFLEX) 500 mg capsule Take 1 capsule by mouth every 12 hours. 07/23/2023 04/21/2024 Dis continuedStart: 01-23-2022 End: 37-79-0127lgjmXCCJij 500 mg cap(s) (KEFLEX)Start: 12-11-2021 End: 35-11-9136wepe 1 capsule by mouth every eight hoursCephalexin 500 mg Capsule Discontinued 500 MG PO Q8H 21 December 11, 2021 12:00am December 5:10pmStart: 12-09-2021 End: 15-46-8611iean 1 capsule by mouth three times dailycephALEXin (KEFLEX) 500 mg capsule Take 1 capsule by mouth three times daily for 3 days. Start evening prior procedure 10 capsule 0 12/09/2021 12/12/2021 ActiveStart: 11-26-2021 End: 21-69-4843zsgb 1 capsule by mouth twice dailycephALEXin (KEFLEX) 500 mg capsule Take 1 capsule by mouth twice daily. 14 capsule 0 11/26/2021 12/09/2021 DiscontinuedStart: 11-12-2021 End: 72-00-7379cnoeDRUHie 500 mg cap(s) (KEFLEX)Start: 33-37-1887wipc 1 capsule by mouth once dailyKeflex 500 mg Cap 500 mg = 1 cap(s), Oral, Daily, Take 1 capsule the day before the procedure and 1capsule after the procedure, # 2 cap(s), Refills(s) 0, Pharmacy: [facility]/pharmacy #[id number], 192, cm, 12/14/19 10:22:00 EDT, Height/Length Dosing, 104, kg, 12/14/19 10:22:00 EDT, Weight Dosing Start Date: 10/28/21 Status: OrderedComment on above:Take 1 capsule by mouth twice daily.Take 1 capsule by mouth three times daily for 3 days. Start evening prior procedurediclofenac 18 mg oral capsule (19 sources)Nonsteroidal Anti-inflammatory Drugtake 1 capsule by mouth three times dailydoxycycline hyclate 100 mg oral capsule (8 sources)Tetracycline-class DrugStart: 97-97-1603coibkufsfst hyclate (VIBRAMYCIN) 100 mg capsule 12/26/2021 Activeeconazole nitrate 10 mg/ml topical cream (19 sources)Azole Antifungalglucosamine 500 mg oral tablet (20 sources)Start: 63-45-7783luzg 2 tablets by mouth once dailyGlucosamine Hcl 500 mg tablet Active 1000 MG PO Daily April 24, 2024 2:11pm administer with a meal Complies with drug therapyStart: 05-21-2023 End: 29-43-6778xugv 1 tablet by mouth once dailyGlucosamine Hcl 500 mg tablet Discontinued 500 MG PO Daily May 21, 2023 1:00am April 24, 2024 2:13pm administer with a mealStart: 46-83-9733Wcnzxnyqpcc HCl 1,500 mg tab Take 1,500 mg by mouth. 05/25/2019 ActiveComment on above:Take 1,500 mg by mouth. Glucosamine 1500 Complex - (19 sources)Glucosamine 1500 Complex - as directed Orally Activelidocaine hydrochloride 0.02 mg/mg topical gel (3 sources)Antiarrhythmic, Amide Local AnestheticStart: 01-23-2022 End: 75-06-3898bzlmijpfo urojet 2 % 11 mL topical gel (XYLOCAINE, GLYDO)Start: 11-12-2021 End: 39-09-7403ecdtwgjkp urojet 2 % 11 mL topical gel (XYLOCAINE, GLYDO) lisinopril 5 mg oral tablet (20 sources)Angiotensin Converting Enzyme InhibitorStart: 08-14-2024 End: 27-18-6852cser 1 tablet by mouth once dailyLisinopril 5 mg tablet Active 5 MG PO Daily August 14, 2024 10:55am Complies with drug therapyStart: 05-03-2024 End: 94-91-9751jqkw 1 tablet by mouth once dailyLisinopril 5 mg tablet Discontinued 5 MG PO Daily June 13, 2024 4:18pm June 14, 2024 2:44pm Start: 03-14-2024 End: 87-69-2108pktc 1 tablet by mouth twice dailyLisinopril 10 mg tablet Discontinued 10 MG PO Twice daily March 14, 2024 1:00am April 2:13pmStart: 12-28-2023 End: 78-59-6443Nabofgszso 20 mg tablet Discontinued 10 MG .ROUTE Twice daily December 28, 2023 8:41am 2023 3:59pm 10 mg twice daily;Start: 40-25-4685Nclzoiawbk Active 10 MG .ROUTE Twice daily December 28, 2023 8:41am 10 mg twice daily;Start: 09-05-2023 End: 53-29-3140Ytcolsdzcw 20 mg tablet Discontinued 0 .ROUTE .COMPLEX September 05, 2023 8:20am December 2748:54am TAKE 1 TABLET DAILYStart: 05-21-2023 End: 52-42-2038wzkw 1 tablet by mouth once dailyLisinopril 20 mg tablet Discontinued 20 MG PO Daily 90 90 June 17, 2023 12:03pm September 05, 2023 8:20am Start: 12-11-2021 End: 32-43-2355haca 10 mg by mouth once dailyLisinopril 20 mg tablet Discontinued 10 MG PO Daily December 11, 2021 12:00am May 21, 2023 12:03pm Start: 12-11-2021 End: 84-67-1431smnh 10 mg by mouth once dailyLisinopril Discontinued 10 MG PO Daily December 11, 2021 12:00am May 21, 2023 12:03pmStart: 07-31-2009 End: 27-95-6119fwdw 2 tablets by mouth once dailyLisinopril 10 mg tablet Discontinued 20 MG PO Daily April 24, 2024 2:10pm April 24, 2024 3 :02pmStart: 66-31-9128xnww 1 mg by mouth once dailylisinopril 10 mg Tab mg tab(s), Oral, Daily, Refills(s) 0 Start Date: 05/25/19 Status: OrderedLisinopril 20 MG TAKE 1 TABLET DAILY ActiveComment on above:Take one(1) tablet daily. lovastatin 40 mg oral tablet (20 sources)HMG-CoA Reductase InhibitorStart: 63-87-4484Ctveluvoud 40 mg tablet Active 0 .ROUTE .COMPLEX 90 June 04, 2024 5:09pm TAKE 1 TABLET EVERY EVENING Complies with drug therapyStart: 73-86-0442yuwwznzwxd 40 mg tablet Lovastatin Active 40 MG PO Daily December 11, 2021 12:00am 05/25/2019 ActiveStart: 05-25-2019 End: 77-11-9712rldj 1 tablet by mouth once dailyLovastatin 40 mg tablet Discontinued 40 MG PO Daily December 11, 2021 12:00am June 17, 2023 12:04pm Comment on above:Lovastatin Active 40 MG PO Daily December 11, 2021 12:00am24 hr metoprolol succinate 25 mg extended release oral tablet (20 sources)beta-Adrenergic BlockerStart: 05-22-2024 End: 17-24-0803aljy 1 tablet by mouth once dailyMetoprolol Succinate 25 mg tablet extended release 24 hr Active 25 MG PO Daily 90 90 October 23, 2024 3:15pm Complies with drug therapyStart: 04-26-2024 End: 95-90-7669pihc 2 tablets by mouth once dailyMetoprolol Succinate 25 mg tablet extended release 24 hr Discontinued 12.5 MG PO Daily 45 90 April 26, 2024 1:00am May 22, 2024 10:00amStart: 04-24-2024 End: 84-55-3929gypx 1 tablet by mouth once dailyMetoprolol Succinate 25 mg tablet extended release 24 hr Discontinued 25 MG PO Daily 90 2024 1:00am April 26, 2024 4:42pmStart: 90-62-7850qvgy 1 tablet by mouth every hourmetoprolol succinate ER (TOPROL XL) 25 mg 24 hr tablet Take 1 tablet by mouth every afternoon. 01/31/2024 ActiveMSM 1500 MG (19 sources)MSM 1500 MG as directed Orally ActiveMulti For Him - (4 sources)Multi For Him - as directed Orally ActiveMultivitamin (Daily Multi- Vitamin) tablet (19 sources)Start: 67-94-9529ewwg 1 tablet by mouth once dailyStart: 05-21-2023 take 1 tablet by mouth once dailyMultivitamin (Daily Multi-Vitamin) tablet Active 1 TAB PO Daily May 21, 2023 1:00am Complies with drug therapyStart: 23-18-3893sxnp 1 tablet by mouth once dailyMultivitamin (Daily Multi-Vitamin) tablet Active 1 TAB PO Daily May 21, 2023 12:00amStart: 81-45-7416oars 1 tablet by mouth once dailyMultivitamin (Daily Multi-Vitamin) tablet Active 1 TAB PO Daily May 21, 2023 1:00amMultivitamin preparation (5 sources)multivitamin (MULTIPLE VITAMINS ORAL) Take by mouth. Active nitrofurantoin, macrocrystals 50 mg oral capsule (1 source)Nitrofuran AntibacterialStart: 11-12-2021 End: 95-56-4996buda 1 capsule by mouth twice dailynitrofurantoin macrocrystal (MACRODANTIN) 50 mg capsule Indications: BPH with obstruction/lower urinary tract symptoms , Benign prostatic hyperplasia with urinary retention 1 capsule by ORAL/FEEDING TUBE route twice daily for 10 days. 20 capsule 0 11/12/2021 11/22/2021 ActiveComment on above:1 capsule by ORAL/FEEDING TUBE route twice daily for 10 days.tamsulosin hydrochloride 0.4 mg oral capsule (20 sources)alpha-Adrenergic BlockerStart: 04-21-2024 End: 61-69-3232hhtk 1 capsule by mouth twice dailytamsulosin (FLOMAX) 0.4 mg Take 1 capsule by mouth two times a day. 180 capsule 2 04/21/2024 01/16/2025 ActiveStart: 18-99-8421Gwyzxoqorj 0.4 mg capsule Active 0 .ROUTE .COMPLEX 180 October 12, 2023 8:41am TAKE 1 CAPSULE TWICE DAILY Complies with drug therapy Start: 12-17-2021 End: 09-44-0294rrdf 1 capsule by mouth twice dailyTamsulosin 0.4 mg capsule Discontinued 0.4 MG PO Twice daily 180 90 June 17, 2023 12:04pm June 23, 2023 9:54amStart: 11-14-2019 End: 03-90-3316qmui 1 capsule by mouth once daily at bedtimeTamsulosin 0.4 mg capsule Discontinued 0.4 MG PO Daily at bedtime June 23, 2023 9:53am October 12, 2023 8:41amComment on above:Take 1 capsule by mouth once daily. Take one cap. dailyTurmeric extract (5 sources)TURMERIC ORAL Take by mouth. ActiveTurmeric Root Extract 500 mg tablet (11 sources)Start: 31-44-8253uwng 1 tablet by mouth once dailyStart: 03-14-2024 take 1 tablet by mouth once dailyTurmeric Root Extract 500 mg tablet Active 750 MG PO Daily March 14, 2024 1:00am Complies withdrug therapyStart: 81-04-5045vdov 1 tablet by mouth once dailyTurmeric Root Extract 500 mg tablet Active 750 MG PO Daily March 14, 2024 1:00amStart: 75-26-9277bwml 1 tablet by mouth once dailyTurmeric Root Extract 500 mg tablet Active 750 MG PO Daily March 14, 2024 12:00amTurmeric Root-Yulisa Root Ext (7 sources)Start: 70-56-5486Dgfptyyh Root-Yulisa Root Ext Active TAB PO May 21, 2023 1:00amTurmeric-Yulisa 150-25 MG (4 sources)Turmeric-Yulisa 150-25 MG as directed Orally Activevit A/vit C/vit E/zinc/copper (PRESERVISION AREDS ORAL) (5 sources)vit A/vit C/vit E/zinc/copper (PRESERVISION AREDS ORAL) Take by mouth. ActiveVitamins A,C,N-Pewy-Hssgfp (Preservision Areds) 4,296 mcg-226 mg-90 mg capsule (9 sources)Start: 07-58-0279rnws 1 capsule by mouth twice dailyVitamins A,C,Y-Awnz-Cpvtgw (Preservision Areds) 4,296 mcg-226 mg-90 mg capsule Active 1 CAP PO Twice daily December 27, 2023 11:00pmStart: 72-79-6748hxch 1 capsule by mouth twice dailyVitamins A,C,I-Ohwi-Dawszk (Preservision Areds) 4,296 mcg-226 mg-90 mg capsule Active 1 CAP PO Twice daily December 28, 2023 12:00am Completed/Discontinued Medications MedicationDrug Class(es)DatesSig (Normalized)Sig (Original)8 hr acetaminophen 650 mg extended release oral tablet (19 sources)take 1 tablet by mouth every four hours as neededAcetaminophen ER 650 MG 1 tablet Orally every 4 hours as needed Not-Taking/PRNtake 1 tablet by mouth every four hours as neededAcetaminophen ER 650 MG 1 tablet Orally every 4 hours as needed ActiveamLODIPine 5 mg oral tablet (20 sources)Dihydropyridine Calcium Channel BlockerStart: 08-04-2023 End: 75-01-4517inyo 1 tablet by mouth once dailyAmlodipine 5 mg tablet Discontinued 5 MG PO Daily August 04, 2023 11:01am December 28, 2023 8: 40amStart: 05-31-2023 End: 83-52-5941qvrp 1 tablet by mouth once dailyAmlodipine 5 mg tablet Discontinued 0 .ROUTE .COMPLEX May 31, 2023 5:07pm August 04, 2023 11:01am TAKE 1 TABLET BY MOUTH DAILY FOR 30 DAYSStart: 05-31-2023 End: 76-13-4198edba 1 tablet by mouth once dailyAmlodipine 5 mg tablet Discontinued 5 MG PO Daily May 31, 2023 12:00am May 31, 2023 5: 07pmStart: 86-58-9570ayPZQAHhiy (NORVASC) 2.5 mg tablet Amlodipine Active 5 MG PO Daily December 11, 2021 12:00am 12/11/2021 ActiveStart: 12-11-2021 amLODIPine (NORVASC) 2.5 mg tablet Amlodipine Active 5 MG PO Daily December 11, 2021 12:00am 0 12/11/2021 ActiveStart: 12-11-2021 End: 60-22-7722vacu 2 tablets by mouth once dailyAmlodipine 2.5 mg tablet Discontinued 5 MG PO Daily December 11, 2021 12:00am May 08, 2023 1:04pmStart: 12-11-2021 End: 46-29-4120arbi 5 mg by mouth once dailyAmlodipine Discontinued 5 MG PO Daily December 11, 2021 12:00am May 08, 2023 1:04pmStart: 05-25-2019 End: 75-23-2654qrhk 1 tablet by mouth once dailyAmlodipine 5 mg tablet Discontinued 5 MG PO Daily May 08, 2023 1:02pm May 21, 2023 1 2:03pmComment on above:Amlodipine Active 5 MG PO Daily December 11, 2021 12:00amamoxicillin 875 mg / clavulanate 125 mg oral tablet (20 sources)Penicillin-class AntibacterialStart: 05-15-2023 End: 39-11-9930ilhv 1 tablet by mouth twice dailyAmoxicillin-Pot Clavulanate 875-125 mg tablet Discontinued 1 TAB PO Twice daily May 15, 2023 1:00am May 21, 2023 12:00pmStart: 68-05-9820fjfd 1 tablet by mouth every twelve hoursAmoxicillin-Pot Clavulanate 875-125 MG 1 tablet Orally every 12 hrs Feb, Activeapixaban 5 mg oral tablet (20 sources)Factor Xa InhibitorStart: 03-14-2024 End: 44-81-4547getq 1 tablet by mouth twice dailyApixaban (Eliquis) 2.5 mg tablet Discontinued 2.5 MG PO Twice daily March 14, 2024 1:00am April 24, 2024 2:13pmStart: 02-01-2024 End: 79-91-7269qnoc 1 tablet by mouth twice dailyApixaban 2.5 mg tablet Discontinued 2.5 MG PO Twice daily 60 February 01, 2024 3:06pm February 01, 2024 10:27pmStart: 02-01-2024 End: 62-00-7936vhjh 2 tablets by mouth twice dailyApixaban (Eliquis) 2.5 mg tablet Discontinued 5 MG PO Twice daily April 24, 2024 2:12pm April 24, 2024 3:03pmStart: 01-31-2024 End: 25-40-5102trzk 1 tablet by mouth twice dailyApixaban (Eliquis) 5 mg tablet Discontinued 5 MG PO Twice daily 180 90 April 24, 2024 1:00am April 26, 2024 10:45amazithromycin 250 mg oral tablet (11 sources)Macrolide AntimicrobialStart: 83-75-6844Uhockwrcoeky 250 MG as directed Orally daily for 5 days Sep, Not-Taking/PRNgabapentin 300 mg oral capsule (20 sources)Anti-epileptic AgentStart: 87-05-0524Atvnqcweaq 300 mg capsule Active 0 .ROUTE .COMPLEX 270 April 03, 2024 8:40am TAKE 1 CAPSULE 3 TIMES A DAYStart: 41-02-2587Lyuthasxuu 300 mg capsule Active 0 .ROUTE .COMPLEX April 03, 2024 7:40am TAKE 1 CAPSULE 3 TIMES A DAYStart: 01-09-2024 End: 47-72-2275Qrialxaqza 300 mg capsule Discontinued 0 .ROUTE .COMPLEX 270 April 03, 2024 8:40am September 27, 2024 9:35am TAKE 1 CAPSULE 3 TIMES A DAY Start: 05-25-2019 End: 12-53-6809xurw 1 capsule by mouth three times dailyGabapentin 300 mg capsule Discontinued 300 MG PO Three times daily 270 90 August 04, 2023 11:00am January 09, 2024 7:29pmStart: 07-31-2009 End: 21-49-8920jzdn 1 capsule by mouth once dailyGabapentin 300 mg capsule Discontinued 300 MG PO Daily December 11, 2021 12:00am August 04, 2023 10:51am Gabapentin 300 MG 1 capsule bid and 2 q HS Orally tid ActiveComment on above: Take one(1) tablet two(2) times daily.glipiZIDE er 2.5 mg 24 hr extended release oral tablet (20 sources)SulfonylureaStart: 12-11-2021 End: 21-34-8229eyjn 1 tablet by mouth once dailyGlipizide 2.5 mg tablet extended release 24hr Discontinued 2.5 MG PO Daily 90 90 August 04, 2023 11:00am May 15, 2024 1:19pmStart: 21-76-6932rped 2.5 mg by mouth once dailyglipiZIDE 5 mg ORAL tablet Take 2.5 mg by mouth once daily. 0 01/09/2010 ActiveStart: 35-03-4006qzov 1 mg by mouth once dailyglipiZIDE 5 mg Tab mg tab(s), Oral, Daily, Refills(s) 0 Start Date: 05/25/19 Status: Orderedtake 1 tablet by mouth every twenty-four hoursglipiZIDE XL 5 MG 1 tablet Orally Once a day Active Comment on above:Take one(1) tablet daily.Take 2.5 mg by mouth once daily. ammonium lactate 120 mg/ml topical cream (11 sources)Start: 16-28-1355Pxdeizuv Lactate 12 % TOPICAL cream Use twice daily on feet 2 01/09/2010 ActiveComment on above:Use twice daily on feet methylsulfonylmethane 1000 mg oral capsule (19 sources)Start: 05-21-2023 End: 51-10-1315sxqa 1 capsule by mouth twice dailyMethylsulfonylmethane (Msm) 1,000 mg capsule Discontinued 1000 MG PO Twice daily May 21, 2023 1:00am March 14, 2024 3:59pmStart: 05-21-2023 End: 07-90-9986nowq 1 capsule by mouth twice dailyMethylsulfonylmethane (Msm) 1,000 mg capsule Discontinued 1000 MG PO Twice daily May 21, 2023 1:00am March 14, 2024 3:59pmnitrofurantoin, macrocrystals 25 mg / nitrofurantoin, monohydrate 75 mg oral capsule (11 sources)Nitrofuran AntibacterialStart: 03-14-2024 End: 54-47-8386avcc 1 capsule by mouth twice daily at mealtimeNitrofurantoin Monohyd/M-Cryst (Macrobid) 100 mg capsule Discontinued 100 MG PO Twice daily March 14, 2024 1:00am April 24, 2024 2:12pm must administer with a meal/foodsimvastatin 40 mg oral tablet (20 sources)HMG-CoA Reductase InhibitorStart: 07-31-2009 End: 40-81-6616ezmwtudbqzl(ZOCOR 40 MG TAB) Take one(1) tablet daily at bedtime. 0 0 07/31/2009 12/16/2021 Discontinued (Discontinued by Patient)Comment on above:Take one(1) tablet daily at bedtime.trimethoprim 100 mg oral tablet (20 sources)Dihydrofolate Reductase Inhibitor AntibacterialStart: 12-15-2021 End: 00-16-9561rqjt 1 tablet by mouth twice dailyTrimethoprim 100 mg tablet Discontinued 100 MG PO Twice daily December 17, 2021 12:00am May 21, 2023 12:03pmComment on above:Take 1 tablet by mouth twice daily for 5 days.Turmeric Root-Yulisa Root Ext 150-25 mg tablet,chewable (12 sources)Start: 05-21-2023 End: 84-28-9001Nlnmyytg Root-Yulisa Root Ext 150-25 mg tablet,chewable Discontinued TAB PO May 21, 2023 1:00am March 14, 2024 4:00pmStart: 05-21-2023 End: 18-96-2418Ejthldcl Root-Yulisa Root Ext 150-25 mg tablet,chewable Discontinued TAB PO May 21, 2023 12:00amDecember 2023 3:00pmStart: 19-37-9177Jjgfpkhg Root-Yulisa Root Ext 150-25 mg tablet,chewable Active TAB PO May 21, 2023 12:00am Problems Active Problems Problem ClassificationProblemDateDocumented DateEpisodic/ChronicAcquired foot deformities (20 sources)Hammer toe; Translations: [Other hammer toe(s) (acquired), left foot]ChronicAcquired foot deformities (10 sources)Hammer toe; Translations: [Other hammer toe(s) (acquired), right foot]ChronicAcquired foot deformities (19 sources)Acquired cavovarus deformity of left foot; Translations: [Other acquired deformities of left foot]EpisodicAcute bronchitis (2 sources)Acute bronchitis due to other specified organismsEpisodicBlindness and vision defects (1 source)Disorder of refraction; 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]00-00-4599FitoznfpYepyzvr dysrhythmias (20 sources)Ventricular premature complex; Translations: [Ventricular premature depolarization]Onset: [id number] on above: Echocardiogram: LVEF 65%, normal RV size/function, LISA, mild , RVSP 4CHADs VASc = 4 (age > 75, HTN, Diabetes)Chronic kidney disease (20 sources)Chronic kidney disease stage 3; Translations: [Chronic kidney disease, stage 3 unspecified]Onset: [id number] ulcer of skin (20 sources)Ulcer of foot; Translations: [Non-pressure chronic ulcer of other part of unspecified foot with unspecified severity]Onset: ChronicComplication of device; implant or graft (20 sources)Disorder of urethral catheter; Translations: [Breakdown (mechanical) of indwelling urethral catheter, initial encounter]77-22-8835XavaefjnThbgtdq on above:Problem List clean-up per request of Phys. EHR CmteDeficiency and other anemia (1 source)Anemia due to chronic blood loss; Translations: [Iron deficiency anemia secondary to blood loss (chronic)]ChronicDeficiency and other anemia (12 sources)Anemia; Translations: [Anemia, unspecified] Resolved: [id number] mellitus with complications (20 sources)Type 2 diabetes mellitus with other diabetic neurological complication; Translations: [Diabetes with neurological manifestations, type II or unspecified type, not stated as uncontrolled]Onset: 03-15-1961 Resolved: 288818-18-8105OwkozmpFzgbvxcp mellitus without complication (2 sources)Type 2 diabetes mellitus without complication; Translations: [Diabetes mellitus without mention of complication, type II or unspecified type, not stated as uncontrolled]53-18-4714WuqyierQlzpxiwef of lipid metabolism (20 sources)Pure hypercholesterolemia; Translations: [Familial hypercholesterolemia]Onset: 80-44-5775KemtqidAvtruyypw hypertension (20 sources)Hypertensive disorder; Translations: [Essential (primary) hypertension]ChronicFluid and electrolyte disorders (1 source)Hypo-osmolality and hyponatremia; Translations: [Hyponatremia]Onset: 42-89-5759XyszpqpiDevvmfnihsoys symptoms and ill-defined conditions (2 sources)Post-micturition incontinence ; Translations: [Urinary incontinence] 13-42-1732CtjmmpkSlmikqumocotn symptoms and ill-defined conditions (20 sources)Retention of urine, unspecified; Translations: [Increased frequency of urination]Onset: 11-07-2021 Resolved: 15-95-9753UlxjwhxnMhnauyr on above:Problem List clean-up per request of Phys. EHR CmteHeart valve disorders (20 sources)Nonrheumatic aortic (valve) stenosis; Translations: [Mild aortic valve stenosis]49-04-8603OgylxomVurjhlk on above:Echocardiogram: LVEF 65%, normal RV size/function, LISA, mild , RVSP 36 12/2023Echocardiogram: LVEF 65%, normal RV size/function, LISA, mild , RVSP 36 - 10arotid US: <50% B/L 10/2021Heart valve disorders (8 sources)Heart murmur; Translations: [Cardiac murmur, unspecified]12-28-2023 EpisodicHyperplasia of prostate (20 sources)Benign prostatic hypertrophy with outflow obstruction; Translations: [Benign prostatic hyperplasia with lower urinary tract symptoms]Onset: 59-24-5953OfbxskyGtzyqmttyjeqv and screening for infectious disease (1 source)Vaccination given; Translations: [Encounter for immunization]Episodic Infective arthritis and osteomyelitis (except that caused by tuberculosis or sexually transmitted disease) (20 sources)Osteomyelitis of right foot; Translations: [Osteomyelitis, unspecified]Onset: 943212-30-6273JuqsyllYsovfudbtokj; infection of eye (except that caused by tuberculosis or sexually transmitteddisease) (11 sources)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; Translations: [Unspecified blepharitis right eye, upper and lower eyelids]Onset: 379108-17-1460VqkczdnuQwtbemlwtvzv conditions of male genital organs (10 sources)Balanitis; Translations: [Balanitis]Onset: ChronicInflammatory conditions of male genital organs (5 sources)Chronic epididymitis; Translations: [Epididymitis] Resolved: 72-99-7327WjuytvfiIupaimxlo or stenosis of precerebral arteries (3 sources)Left carotid artery stenosis; Translations: [Occlusion and stenosis of left carotid artery]ChronicOsteoarthritis (20 sources)Osteoarthritis of right knee joint; Translations: [Unilateral primary osteoarthritis, right knee]ChronicOther aftercare (4 sources)H/O: high risk medication; Translations: [Other terminologist (current) drug therapy]EpisodicOther aftercare (1 source)Long-term current use of drug therapy; Translations: [Other terminologist (current) drug therapy]EpisodicOther circulatory disease (1 source)Elevated blood-pressure reading, without diagnosis of hypertension; Translations: [Elevated blood pressure reading without diagnosis of hypertension]Onset: 03-36-3028VutklyvuAyyvr circulatory disease (18 sources)Carotid bruit; Translations: [Other specified symptoms and signs involving the circulatory and respiratory systems]EpisodicOther circulatory disease (6 sources)Other specified symptoms and signs involving the circulatory and respiratory systems; Translations:[OTH SPEC SX SIGNS INVLV CIRC RS]Onset: 01-84-7668FkufisahShxva circulatory disease (1 source)Cardiovascular symptoms; Translations: [Other specified symptoms and signs involving the circulatory and respiratory systems]EpisodicOther connective tissue disease (4 sources)Pain in left foot; Translations: [PAIN IN LEFT FOOT]Onset: 06-02-2022 EpisodicOther connective tissue disease (1 source)Pain in left foot; Translations: [Pain in left foot]EpisodicOther connective tissue disease (1 source)Other specified soft tissue disordersEpisodicOther diseases of bladder and urethra (1 source)Flaccid neurogenic bladder; Translations: [Flaccid neuropathic bladder, not elsewhere classified]ChronicOther diseases of veins and lymphatics (6 sources)Peripheral venous insufficiency; Translations: [Venous insufficiency (chronic) (peripheral)]Onset: 07-32-9385AnolxqpfXtwun diseases of veins and lymphatics (20 sources)Venous insufficiency of leg; Translations: [Venous insufficiency (chronic) (peripheral)]92-12-2182PwopjuawBoyvz diseases of veins and lymphatics (19 sources)Stasis dermatitis; Translations: [Venous insufficiency (chronic) (peripheral)]13-23-6031AggjcxlmXbxoq diseases of veins and lymphatics (20 sources)Venous insufficiency (chronic) (peripheral); Translations: [Venous (peripheral) insufficiency, unspecified]29-58-2572EcjhkgivEmbxz eye disorders (11 sources)Optic atrophy; 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]Onset: 137543-18-0427YvpqoqjJuiqn eye disorders (11 sources)Dry eyes; Translations: [Dry eye syndrome of bilateral lacrimal glands]Onset: 255823-36-3206NkbqjdmfKsfjk injuries and conditions due to external causes (2 sources)History of fall; Translations: [Personal history of fall]Onset: 11-82-1747AqvhncjpZerqa male genital disorders (1 source)Personal history of other diseases of male genital organs; Translations: [History of BPH]Onset: 25-64-1157ZgaombywJzgvj male genital disorders (1 source)Disorder of reproductive system; Translations: [Hydrocele, unspecified]EpisodicOther male genital disorders (1 source)Pain of left testicle; Translations: [Left testicular pain]Episodic Other non-traumatic joint disorders (1 source)Lower limb joint arthritis; Translations: [Osteoarthrosis, unspecified whether generalized or localized, lower leg]Onset: 21-39-8282IqthuxcItlfh non- traumatic joint disorders (1 source)Pain in left kneeEpisodicOther non-traumatic joint disorders (1 source)Pain in left ankle and joints of left foot; Translations: [PAIN IN LEFT ANKLE]Onset: 24-18-4311KdmprwhfOzpvq non-traumatic joint disorders (1 source)Shoulder joint pain; Translations: [Pain in right shoulder]Episodic Other nutritional; endocrine; and metabolic disorders (1 source)Obesity; Translations: [Obesity, unspecified]ChronicOther nutritional; endocrine; and metabolic disorders (10 sources)Overweight; Translations: [Overweight]EpisodicOther nutritional; endocrine; and metabolic disorders (19 sources)Overweight; Translations: [Overweight]Onset: 883928-41-5344 EpisodicOther skin disorders (5 sources)Actinic keratosis; Translations: [Actinic keratosis]EpisodicOther skin disorders (1 source)Callosity; Translations: [Corns and callosities]EpisodicOther skin disorders (2 sources)Corns and callositiesEpisodicRetinal detachments; defects; vascular occlusion; and retinopathy (11 sources)Nonexudative age-related macular degeneration; Translations: [Nonexudative age-related macular degeneration, bilateral, intermediate dry stage]Onset: 664440-35-3761ZjyxnwbKvydqoo detachments; defects; vascular occlusion; and retinopathy (1 source)Serous retinal detachment; Translations: [Serous retinal detachment, unspecified eye]EpisodicSkin and subcutaneous tissue infections (20 sources)Cellulitis of toe of left foot; Translations: [Cellulitis of left toe] Resolved: 18-81-9251IdwmonvbLllffvvcodw; intervertebral disc disorders; other back problems (6 sources)Lumbosacral spondylosis without myelopathy; Translations: [Spondylosis without myelopathy or radiculopathy, lumbar region]ChronicSprains and strains (2 sources)Low back strain; Translations: [Strain of muscle, fascia and tendon of lower back, initial encounter] Resolved: 85-16-4266UqptnmdsKiwqeko disorders (20 sources)Subclinical hypothyroidism; Translations: [Other specified hypothyroidism]43-57-3581EanrgqtFzsqoiqyxauc (3 sources)CONTACT W/AND (SUSP) EXPOS COVID-19; Translations: [CONTACT W/AND (SUSP) EXPOS COVID-19]Onset: 53-58-8482Uqfutyqalcvi (1 source)Long-term current use of drug therapy; Translations: [Long-term (current) use of other medications]Onset: 74-10-8796Ykwikcdtjszg (1 source)Drug therapy nblycjs07-52-2154 Past or Other Problems Problem ClassificationProblemDateDocumented DateEpisodic/ChronicAcute posthemorrhagic anemia (1 source)Acute posthemorrhagic anemia; Translations: [Acute posthemorrhagic anemia] Resolved: 08-46-9169MwbvpberGmtvqrlik infection; unspecified site (1 source)Bacterial infectious disease; Translations: [Bacterial infection, unspecified, in conditions classified elsewhere and of unspecified site]Onset: 77-04-4881MeyvpkrfQcnhphg dysrhythmias (1 source)Palpitations; Translations: [Palpitations]Onset: 21-68-3329Undiayoj Chronic obstructive pulmonary disease and bronchiectasis (1 source)Bronchitis; Translations: [Bronchitis, not specified as acute or chronic]Onset: 80-73-4207FaknhwltKwpxgqv and fatigue (1 source)Malaise and fatigue; Translations: [Other malaise and fatigue]Onset: 25-88-7916AshfdzruIjsrkmqcmzu chest pain (1 source)Chest pain; Translations: [Chest pain, unspecified] Resolved: 44-13-6233RpvugbqlFepld aftercare (1 source)Other terminologist (current) drug therapy; Translations: [OTH SKI TECHNICIAN CURRENT DRUG THERAPY]Onset: 62-60-4398RnzcozngTrjez connective tissue disease (1 source)Disorder of soft tissue; Translations: [Other specified soft tissue disorders] Resolved: 65-13-6609AimssqwdItphm lower respiratory disease (1 source)Dyspnea; Translations: [Dyspnea, unspecified]Onset: 59-10-7600Ljgzlxeh Other male genital disorders (4 sources)Left testicular pain; Translations: [LEFT TESTICULAR PAIN]Onset: 25-09-7176SwexcxneFetqg nutritional; endocrine; and metabolic disorders (2 sources)Body mass index 25-29 - overweight; Translations: [Body mass index (BMI) 28.0-28.9, adult]Onset: 65-72-4107LrhnudcnTjsqv skin disorders (1 source)Other seborrheic keratosis; Translations: [Seborrheic keratosis]Onset: 44-20-4775GsoymtbzXaoyx skin disorders (1 source)Atrophoderma; Translations: [Unspecified hypertrophic and atrophic condition of skin]Onset: 53-82-9410JukkctljKuryw upper respiratory infections (1 source)Acute pharyngitis; Translations: [Acute pharyngitis due to other specified organisms]Onset: 00-08-0865QlsyxpbeEdoopzbk codes; unclassified (18 sources)Postoperative state; Translations: [Other specified postprocedural states]Onset: 024255-35-6431LepmqiigSpfqpnsa codes; unclassified (1 source)Requires influenza virus vaccination; Translations: [Need for prophylactic vaccination and inoculation, Influenza]Onset: 71-47-4834Kiebkncb Residual codes; unclassified (1 source)Edema; Translations: [Edema]Onset: 34-90-3222DvxmvwwoWlvlvebed and history of mental health and substance abuse codes (1 source)History of tobacco use; Translations: [Personal history of tobacco use, presenting hazards to health]Onset: 41-48-3832HmxezfvzHxfnuerysaz injury; contusion (1 source)Blister of foot with infection; Translations: [Foot and toe(s), blister, infected]Onset: 44-62-6064WjmsxynwHeumehtdewre (1 source)CONTACT W/AND (SUSP) EXPOS COVID-19; Translations: [CONTACT W/AND (SUSP) EXPOS COVID-19]Onset: 34-12-9968Noremjp tract infections (7 sources)Acute cystitis with hematuria; Translations: [Urinary tract infectious disease]Onset: 76-92-2045Jfswqyeu Results Test NameValueInterpretationReference RangeFacilityOphthalmic OCT panelon 49-53-1749ELHOSaint [facility] Eye Images reviewed and comparison made to baseline, Images reviewed. To assess optic nerve function and for use in future follow-up. Reliability: good and adequate. Left Eye Images reviewed and comparison made to baseline, Images reviewed. To assess optic nerve function and for use in future follow-up. Reliability: good and adequate. Notes Nerve fiber layer (NFL) thinning left eye (OS). Stable.[facility] MountainRadiology Study observation (narrative)[facility] HospitalOVon 00-13-7920XTNXIctesi Visit (UROLLN) NORBERTO WASHINGTON ([id number]) 1940 M Date Time Provider Department 10/24/24 3:00 PM LETICIA MILIAN UROLLN During your visit today, we recorded the following information about you: Pulse Blood pressure Weight 62/minute 114/49 99.8 kg Leticia Milian, INSURANCE EXAMINING CLERK.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 10/24/2024 3:38 PM Signed Norberto Washington [address] [facility] [address] HISTORY OF PRESENT ILLNESS: Seen 04/21/24 for BPH w obs/luts, UTI C/O of burning with urination for about 1 wk Denies gross hematutia Drink 50 oz water day Drink 1 quart coffee day and Drink Drink 1 cup water Denies issues with BM ROSAMARIA 11/10/21 - 10 gm, rubbery, no nodules AUA=15 QOL 4 PVR=34 ML cysto 11-12-21 = 2.5 cm NON [...] BPH w obs/luts, UTI (new finding today 10/24/24) Denies gross hematutia Denies burning with urination Pt stated have moisture in underwear pt wear there ones with padding build in will trial disposable padding. Pt stated that only take stool softener if no BM in 2-3 days encourage to take consistant. Pt noted skin irritation with burning note at head of foreskin CDK=496 ML Location: BPH w obs/luts, UTI Pain Character: none Severity Scale: see AUA score, see lab Duration: BPH w obs/luts, UTI [employer] SYMPTOMS SCORE. 1. INCOMPLETE EMPTYING 1 2. FREQUENCY 1 3. INTERMITTENCY 3 4. URGENCY 0 5. WEAK STREAM 1 6. STRAINING 1 7. NOCTURIA 3 TOTAL SCORE 10 QOL 2 No past medical history on file. No past surgical history on file. No family history on file. Social History Tobacco Use Smoking status: Former Current packs/day: 0.00 Average packs/day: 1.5 packs/day for 14.0 years (21.0 ttl pk-yrs) Types: Cigarettes Start date: 03/15/1957 Quit date: 03/15/1971 Years since quittin.6 Smokeless tobacco: Never Substance Use Topics Alcohol use: Yes Comment: social MEDICATIONS: Current Outpatient Medications Medication Sig tamsulosin (FLOMAX) 0.4 mg Take 1 capsule by mouth two times a day. TURMERIC ORAL Take by mouth. multivitamin (MULTIPLE VITAMINS ORAL) Take by mouth. apixaban (ELIQUIS) 2.5 mg tab(s) 5 mg two times a day. metoprolol succinate ER (TOPROL XL) 25 mg 24 hr tablet Take 1 tablet by mouth every afternoon. vit A/vit C/vit E/zinc/copper (PRESERVISION AREDS ORAL) Take by mouth. aspirin 81 mg cap Aspirin Active 81 [...] Take 20 mg by mouth once daily. (Patient taking differently: Take 5 mg by mouth once daily.) doxycycline hyclate (VIBRAMYCIN) 100 mg capsule (Patient [...] from the gums. PHYSICAL EXAM: VITALS: BP (!) 114/49 Pulse 62 Wt 99.8 kg (220 lb) BMI 27.50 kg/m? GENERAL: Alert, oriented and in no distress. HEAD: Conjuctiva: no palor Sclera: no jaundice NECK: No enlarged thyroid, no palpable lymph nodes, and no engorged neck veins. CHEST: Bilateral symetrical, resp (more content not included)...NormalPromedica Flower HospitalBasophils Auto (Bld) [#/Vol]Ordered By: Campbell Saavedra on 99-14-6406Uqmvgjbbk (Bld) [#/Vol]0.0 10 3/uL0.0-0.1FProtestant Deaconess HospitalBasophils/100 WBC Auto (Bld)Ordered By: Campbell Saavedra on 09-22-2024 Basophils/100 WBC (Bld)0.7 %0.2-2.0[facility] Eosinophils/100 WBC Auto (Bld)Ordered By: Campbell Saavedra on 09-22-2024 Eosinophils/100 WBC (Bld)2.6 %0.9-7.0[facility] Erythrocyte distribution width Auto (RBC) [Ratio]Ordered By: Campbell Saavedra on 02-77-1689Dmqeaakmbjh distribution width (RBC) [Ratio]14.6 %11.0-15.0[facility] HealthHematocrit Auto (Bld) [Volume fraction]Ordered By: Campbell Saavedra on 32-19-6439Tplcwuwhub (Bld) [Volume fraction]36.0 %Low42.0-54.0 [facility] HealthHemoglobin [Mass/volume] in BloodOrdered By: Campbell Saavedra on 04-56-7055Rgipafzijq (Bld) [Mass/Vol]11.9 g/dLLow14.0-18.0 [facility] HealthLaboratory - Chemistry and Chemistry - challengeOrdered By: Campbell Saavedra on 65-72-9878Abex T4 [Mass/Vol]0.89 ng/dL 0.76-1.46[facility] HealthTSH Qn4.474 m[IU]/LHigh0.358-3.740 [facility] HealthBilirubin Ql (U)NegativeNEGATIVEKettering HealthGlucose (U) [Mass/Vol]NegativeNEGATIVEKettering HealthKetones Ql (U)NegativeNEGMercy Health – The Jewish HospitalpH (U)5.5 [pH]5.0-9.0[facility] Medical Centerpecific gravity (U) [Rel density]1.0201.005-1.025[facility] HealthUrobilinogen Qn (U)0.2 {Americo'U}/dL0.2-1.0[facility] HealthLaboratory - Hematology and Cell countsOrdered By: Campbell Saavedra on 84-08-9191Tnayiwwc granulocytes/100 WBC (Bld)0.5 %0.0-0.5FProtestant Deaconess HospitalLaboratory - Specimen informationOrdered By: Campbell Saavedra on 56-52-0696Kzxopiyujj (U)CLEARCLEAR [facility] HealthColor (U)LT. YELLOWYELLOWKettering HealthLaboratory - UrinalysisOrdered By: Campbell Saavedra on 09-22-2024 Leukocyte esterase Test strip Ql (U)TRACEAbnormalNEGATIVEKettering HealthNitrite Ql (U)NegativeNEGATIVEKettering Health Protein Ql (U)NegativeNEG/TRACEKettering HealthLeukocytes [#/volume] corrected for nucleated erythrocytes in Blood by Automated coun Ordered By: Campbell Saavedra on 19-17-9954QAV corrected for nucl RBC Auto (Bld) [#/Vol]6.1 10 3/uL4.0-11.0[facility] HealthLymphocytes Auto (Bld) [#/Vol]Ordered By: Campbell Saavedra on 27-22-1003Dlvimqthvfb (Bld) [#/Vol]1.5 10 3/uL1.2-3.8[facility] HealthLymphocytes/100 WBC Auto (Bld) Ordered By: Campbell Saavedra on 39-06-5194Mifogqaohbj/100 WBC (Bld)24.5 %20.5-60.0 [facility] Auto (RBC) [Entitic mass]Ordered By: Campbell Saavedra on 15-87-2103NRY (RBC) [Entitic mass]28.7 pg25.9-34.0[facility] HealthMCHC Auto (RBC) [Mass/Vol]Ordered By: Campbell Saavedra on 14-38-7134OWUS (RBC) [Mass/Vol]33.1 g/dL29.9-35.2FProtestant Deaconess HospitalMCV Auto (RBC) [Entitic vol]Ordered By: Campbell Saavedra on 88-62-5557VBA (RBC) [Entitic vol]87.0 fL80.0-94.0[facility] HealthMonocytes Auto (Bld) [#/Vol]Ordered By: Campbell Saavedra on 80-96-3231Qfpdrzabf (Bld) [#/Vol] 0.8 10 3/uL0.3-0.8[facility] HealthMonocytes/100 WBC Auto (Bld) Ordered By: Campbell Saavedra on 41-10-7667Wfdevcayy/100 WBC (Bld)13.7 %High1.7-12.0 [facility] HealthNeutrophils Auto (Bld) [#/Vol]Ordered By: Campbell Saavedra on 27-97-7413Wzdtqbplpnu (Bld) [#/Vol]3.5 10 3/uL1.4-6.5FProtestant Deaconess HospitalNeutrophils/100 WBC Auto (Bld)Ordered By: Campbell Quentin on 84-96-6088Uamxrzmdybx/100 WBC (Bld)58.0 %43.0-75.0[facility] HealthNo Panel InformationOrdered By: Campbell Saavedra on 45-28-1083Gqlyxmoecml # (Auto)0.2 10 3/uL0.0-0.7FProtestant Deaconess HospitalImmature Granulocyte # (Auto)0.03 10 3/uL0.00-0.03[facility] HealthUrine Occult Blood NegativeNEGATIVEKettering HealthPlatelet mean volume Auto (Bld) [Entitic vol]Ordered By: Campbell Saavedra on 17-41-5602Vvfchrcs mean volume (Bld) [Entitic vol]9.7 fL9.5-13.5FProtestant Deaconess HospitalPlatelets Auto (Bld) [#/Vol]Ordered By: Campbell Saavedra on 39-07-5062Zzplkfohb (Bld) [#/Vol]232 10 3/uL 150-450[facility] HealthRBC Auto (Bld) [#/Vol]Ordered By: Campbell Saavedra on 85-46-0378XHM (Bld) [#/Vol]4.14 10 6/uLLow4.70-6.10[facility] Southeastern Medical Centererum or plasma methylmalonate measurement (moles/volume) Ordered By: Campbell Saavedra on 45-86-1068Ruxhxrhjamgqmt [Moles/Vol]162 nmol/L0-378 [facility] HealthComment on above:This test was developed and its performance characteristicsdetermined by [employer]. It has not been cleared orapproved by the Food and Drug Administration.Performed at: [address] [id number] Director: Nile Jensen MD, Phone: [phone] Cultureon 40-53-9787Encqpbes identified Cx Nom (U)No Growth 2 Days PERFORMED BY: [facility] [address] [place] [address] PATHOLOGIST JUVENILE CORRECTIONAL OFFICER YANA ROLDAN M.D.NormalThe [facility] Point Physician GroupComment on above: Performed By: #### CUU #### [facility] [address] [place] [address] USAUrine cultureOrdered By: Campbell Saavedra on 09-22-2024 Bacteria identified Cx Nom (U)No Growth 2 DaysKettering Health Glucose mean value [Mass/volume] in Blood Estimated from glycated hemoglobinon 91-75-9435Yvykrwg glucose Estimated from glycated hemoglobin (Bld) [Mass/Vol] Glucose mean value [Mass/volume] in Blood Estimated from glycated hemoglobin [facility] HealthAverage glucose Estimated from glycated hemoglobin (Bld) [Mass/Vol]117 mg/dLKettering HealthHemoglobin A1c percentageon 16-11-1919LrO7w (Bld) [Mass fraction]Hemoglobin A1c percentage 4.5-6.2FProtestant Deaconess HospitalComment on above:ADA RECOMMENDED LIMIT 4.0 - 6.0ADA THERAPEUTIC TARGET < 7.0ACTION SUGGESTED> 7.0HbA1c (Bld) [Mass fraction]5.7 %4.5-6.2FProtestant Deaconess HospitalComment on above:ADA RECOMMENDED LIMIT 4.0 - 6.0ADA THERAPEUTIC TARGET < 7.0ACTION SUGGESTED> 7.0 Laboratory - Chemistry and Chemistry - challengeon 88-00-1341Hpmk T4 [Mass/Vol] 0.79 ng/dL0.76-1.46[facility] HealthTSH Qn3.846 m[IU]/LHigh 0.358-3.740[facility] HealthBacteria Ur Culton 05-03-2024 Bacteria identified Cx Nom (U)CULTURE, URINE: No growth (<1,000 CFU/ml)NormalPromedica Flower HospitalComment on above: Performed By: #### 630-4 #### [facility] CLIA [id number] [address] [place] [address] [place] OF AMERICALaboratory - Chemistry and Chemistry - challengeon 38-32-9528Xxwdoefnr Ql (U)NegativeNegativeKettering HealthGlucose (U) [Mass/Vol]NegativeNegativeKettering HealthKetones Ql (U)NegativeNegativeKettering HealthpH (U)6.0 [pH]<8.5FCleveland Clinic Akron General Lodi Hospitalpecific gravity (U) [Rel density]1.0131.005-1.030[facility] HealthLaboratory - Specimen informationon 39-31-1496Jcduncykyu (U)ClearClearFProtestant Deaconess HospitalColor (U)YellowYellowKettering HealthLaboratory - Urinalysison 61-09-5104Zjwbtcbs LM.HPF (Urine sed) [#/Area]NegativeNegative [facility] HealthHyaline casts LM Ql (Urine sed)0 /LPF0 /LPF [facility] HealthLeukocyte esterase Test strip Ql (U)Negative NegativeKettering HealthNitrite Ql (U)NegativeNegativeKettering HealthProtein Ql (U)NegativeNegativeKettering HealthNo Panel Informationon 56-22-7605Scslq Occult BloodNegativeNegative [facility] HealthUrine RBC0-2 /HPF0-2 /HPFKettering HealthUrine Squamous Epithelial CellsNone Seen [HPF][facility]tering HealthUrine Urobilinogen0.2 EU/dL0.2-1.0 EU/dLKettering HealthUrine WBC0-5 /HPF0-5 /HPFKettering HealthUrinalysis complete panel (U)on 22-10-2321Bwzjbpsg LM.HPF (Urine sed) [#/Area]Negative NormalNegativeMagruder Memorial Hospital on above:Order Comment: Specimen Type: URINE SPECIMEN Ordering Facility: [facility] Address: [address] [place], [place] [address]Performed By: #### [id number] #### [facility] CLIA [id number] [address] [place] [address] [place] OF AMERICABilirubin Ql (U)Negative NormalNegativeMagruder Memorial Hospital on above:Order Comment: Specimen Type: URINE SPECIMEN Ordering Facility: [facility] Address: [address] [place], [place] [address]Performed By: #### [id number] #### [facility] CLIA [id number] [address] [address] [place] OF AMERICAClarity (Unsp spec)Clear NormalClearCFulton County Health Center on above:Order Comment: Specimen Type: URINE SPECIMEN Ordering Facility: [facility] Address: [address] [place], [place] [address]Performed By: #### [id number] #### [facility] CLIA [id number] [address] [place], [place] [address] [place] AMERICAColor (U)YellowNormalYellow [facility] on above:Order Comment: Specimen Type: URINE SPECIMEN Ordering Facility: [facility] Address: [address] [place], [place] [address]Performed By: #### [id number] #### [facility] CLIA [id number] [address] [place], [place] [id number] [place] OF AMERICAEpithelial cells LM.HPF (Urine sed) [#/Area]None SeenNormalCFulton County Health Center on above: Order Comment: Specimen Type: URINE SPECIMEN Ordering Facility: [facility] Address: [address] [place], [place] [address]Performed By: #### 28360-6 #### [facility] CLIA [id number] [address] [place] [address] [place] OF AMERICAGlucose Test strip (U) [Mass/Vol]NegativeNormalNegativeMagruder Memorial Hospital on above:Order Comment: Specimen Type: URINE SPECIMEN Ordering Facility: [facility] Address: [address] [place], [place] [address]Performed By: #### 38562-7 #### [facility] CLIA [id number] [address] [place], [place] [address] [place] OF AMERICAHemoglobin Ql (U)Negative NormalNegativeMagruder Memorial Hospital on above:Order Comment: Specimen Type: URINE SPECIMEN Ordering Facility: [facility] Address: [address] [place], [place] [address]Performed By: #### 40176-5 #### [facility] CLIA [id number] [address] [place], [place] [address] [place] OF AMERICAHyaline casts (Urine sed) [#/Area]0 /[LPF]Normal0 /LPFCFulton County Health Center on above:Order Comment: Specimen Type: URINE SPECIMEN Ordering Facility: [facility] Address: [address] [place], [place] [address]Performed By: #### 35910-1 #### [facility] CLIA [id number] [address] [place] [address] [place] AMERICAKetones Ql (U)NegativeNormal NegativeMagruder Memorial Hospital on above:Order Comment: Specimen Type: URINE SPECIMEN Ordering Facility: [facility] Address: [address] [place], [place] [address]Performed By: #### 61801-2 #### [facility] CLIA [id number] [address] [place] [address] [place] AMERICALeukocyte esterase Test strip Ql (U)NegativeNormalNegativeMagruder Memorial Hospital on above: Order Comment: Specimen Type: URINE SPECIMEN Ordering Facility: [facility] Address: [address] [place], [place] [address]Performed By: #### 96495-1 #### [facility] CLIA [id number] [address] [place] [address] [place] AMERICANitrite Ql (U)NegativeNormal NegativeMagruder Memorial Hospital on above:Order Comment: Specimen Type: URINE SPECIMEN Ordering Facility[facility] Address: [address] [place], [place] [address]Performed By: #### 01225-5 #### [facility] CLIA [id number] [address] [place], [place] [address] [place] AMERICApH (U)6.0 [pH]Normal<8.5 [facility] on above:Order Comment: Specimen Type: URINE SPECIMEN Ordering Facility: [facility] Address: [address] [place], [place] [address]Performed By: #### 24107-4 #### [facility] CLIA [id number] [address] [place] [address] [place] AMERICAProtein (U) [Mass/Vol] NegativeNormalNegativeMagruder Memorial Hospital on above:Order Comment: Specimen Type: URINE SPECIMEN Ordering Facility: [facility] Address: [address] [place], [place] [address]Performed By: #### 37767-0 #### [facility] CLIA [id number] [address] [place] [address] [place] [facility] HOSPITALRB LM.HPF (Urine sed) [#/Area]0-2 /HPFNormal0-2 /HPFMagruder Memorial Hospital on above:Order Comment: Specimen Type: URINE SPECIMEN Ordering Facility: [facility] Address: [address] [place], [place] [address]Performed By: #### 03204-5 #### [facility] [place] [id number] [address] [place] [address] [place] AMERICASpecific gravity (U) [Rel density]1.934Feyssj1.005-1.030[facility] on above:Order Comment: Specimen Type: URINE SPECIMEN Ordering Facility: [facility] Address: [address] [place], [place] [address]Performed By: #### 94906-8 #### [facility] [place] [id number] [address] [place] [address] [place] AMERICAUrobilinogen Ql (U)0.2 EU/dL Normal0.2-1.0 EU/dLMagruder Memorial Hospital on above:Order Comment: Specimen Type: URINE SPECIMEN Ordering Facility: [facility] Address: [address] [place], [place] [address]Performed By: #### 62559-8 #### [facility] CLIA [id number] [address] [place], [place] [address] [place] [address] [place] AMERICAW LM.HPF (Urine sed) [#/Area]0-5 /HPFNormal0-5 /HPFMagruder Memorial Hospital on above:Order Comment: Specimen Type: URINE SPECIMEN Ordering Facility: [facility] Address: [address] [place], [place] [address]Performed By: #### 59270-1 #### [facility] CLIA [id number] [address] [place] [address] [place] AMERICABacteria Ur Culton 14-82-9580Uqblfznv identified Cx Nom (U)ORGANISM ID: 1 >=100,000 CFU/ml Klebsiella oxytoca ORGANISM ID: 1 (KLEBSIELLA OXYTOCA) ANTIBIOTIC INTERPRETATION ROCIO STATUS REFERENCE RANGE Ampicillin R F Cefazolin R >=64 F Susceptible 0-16 , Intermediate <0 or >16 , Resistant >16 For uncomplicated urinary tract infections, cefazolin results can be used to predict susceptibilityor resistance to cephalexin. Ceftriaxone S <=1 F Susceptible <=1 , Intermediate >1 , Resistant >=4 Cefepime S <=1 F Susceptible <=2 , Susceptible-Dose Dependent >2 , Resistant >=16 Ertapenem S <=0.5 F Susceptible <=0.5 , Intermediate >.5 , Resistant >1 Meropenem S <=0.25 F Susceptible <=1 , Intermediate >1 , Resistant >2 Ampicillin/Sulbact S 4 F Susceptible <=8 , Intermediate >8 , Resistant >16 Piperacillin/Tazobac S <=4 F Susceptible <16 , Susceptible-Dose Dependent >=16 , Resistant >=32 Gentamicin S <=1 F Susceptible <=2 , Intermediate >2 , Resistant >=8 Tobramycin S <=1 F Susceptible <4 , Intermediate >=4 , Resistant >=8 Trimeth sulfameth S <=20 F Susceptible <=40 , Resistant >40 Ciprofloxacin S <=0.25 F Susceptible <0.5 , Intermediate >=.5 , Resistant >=1 Nitrofurantoin S 32 F Susceptible <=32 , Intermediate >32 , Resistant >64AbnormalCCleveland Clinic Mercy HospitalComment on above:Performed By: #### 630-4 #### [facility] CLIA [id number] [address] [place] [address] STATES OF [facility] HOSPITALCNOVon 07-01-9004DLGOIdxyai Visit (UROLLN) NORBERTO WASHINGTON ([id number]) 1940 M Date Time Provider Department 04/21/24 4:30 PM LETICIA MILIAN During your visit today, we recorded the following information about you: Pulse Blood pressure Weight 76/minute 161/69 97.5 kg Leticia Milian, INSURANCE EXAMINING CLERK.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 04/21/2024 4:58 PM Signed Norberto Washington [address] [facility] [address] HISTORY OF PRESENT ILLNESS: Seen 02/08/24 for BPH w obs/luts, UTI, incomplete emptying Denies gross hematuria Denies burning with urination Pt stated that is having issue with constipation last BM a couple days ago ROSAMARIA 11/10/21 - 10 gm, rubbery, no nodules AUA=13 QOL 2 FSB=738 ML cysto 11-12-21 = 2.5 cm NON [...] BPH w obs/luts, UTI (new finding today 04/21/24) C/O of burning with urination for about 1 wk Denies gross hematutia Drink 50 oz water day Drink 1 quart coffee day and Drink Drink 1 cup water Denies issues with BM PVR=34 ML Location: BPH w obs/luts, UTI Pain Character: none Severity Scale: see AUA score, see lab Duration: BPH w obs/luts, UTI [facility] SYMPTOMS SCORE. 1. INCOMPLETE EMPTYING 1 2. FREQUENCY 2 3. INTERMITTENCY 3 4. URGENCY 0 5. WEAK STREAM 3 6. STRAINING 3 7. NOCTURIA 3 TOTAL SCORE 15 QOL 4 No past medical history on file. No past surgical history on file. No family history on file. Social History Tobacco Use Smoking status: Former Current packs/day: 0.00 Average packs/day: 1.5 packs/day for 14.0 years (21.0 ttl pk-yrs) Types: Cigarettes Start date: 03/15/1957 Quit date: 03/15/1971 Years since quittin.1 Smokeless tobacco: Never Substance Use Topics Alcohol use: Yes Comment: social MEDICATIONS: Current Outpatient Medications Medication Sig TURMERIC ORAL Take by mouth. multivitamin (MULTIPLE VITAMINS ORAL) Take by mouth. apixaban (ELIQUIS) 2.5 mg tab(s) 5 mg two times a day. vit A/vit C/vit E/zinc/copper (PRESERVISION AREDS ORAL) Take by mouth. aspirin 81 mg cap Aspirin Active 81 [...] Take 20 mg by mouth once daily. tamsulosin (FLOMAX) 0.4 mg Take 1 capsule by mouth two times a day. cephALEXin (KEFLEX) 500 mg capsule Take 1 capsule by mouth two times a day for 10 days. metoprolol succinate ER (TOPROL XL) 25 mg 24 hr tablet Take 1 tablet by mouth every afternoon. (Patient not taking: Reported on 04/21/2024) doxycycline hyclate (VIBRAMYCIN) 100 mg capsule (Patient [...] from the gums. PHYSICAL EXAM: VITALS: BP 161/69 Pulse 76 Wt 97.5 kg (215 lb) BMI 26.87 kg/m? GENERAL: Alert, oriented and in no distress. HEAD: Conjuctiva: no palor Sclera: no jaundice NECK: No enlarged thyroid, no palpable lymph nodes, and no engorged neck veins. CHEST: Bilateral symetrical, resp easy non labored ABDOMEN: Soft, non tender with no masses or organomegaly. No CVA tenderness. EXTREMITI (more content not included)...NormalProm[facility] - Chemistry and Chemistry - challengeon 90-43-6164Cizjkbtdl Ql (U) NegativeNegClinton Memorial HospitalGlucose (U) [Mass/Vol]Negative NegativeKettering HealthKetones Ql (U)NegativeNegClinton Memorial HospitalpH (U)6.0 [pH]<8.5FProtestant Deaconess Hospital Specific gravity (U) [Rel density]1.0131.005-1.030[facility] HealthLaboratory - Specimen informationon 73-45-7467Ptmpveroxv (U)CloudyAbnormal ClearKettering HealthColor (U)YellowYellowKettering HealthLaboratory - Urinalysison 90-41-9721Mzetbri casts LM Ql (Urine sed)0 /LPF0 /LPFFProtestant Deaconess HospitalLeukocyte esterase Test strip Ql (U)3+AbnormalNegativeKettering HealthNitrite Ql (U)Positive AbnormalNegClinton Memorial HospitalProtein Ql (U)NegativeNegative Kettering HealthNo Panel Informationon 64-45-7151Bszvj Bacteria >9821 uLHighNegClinton Memorial HospitalUrine Occult BloodTrace AbnormalNegClinton Memorial HospitalUrine RBC0-2 /HPF0-2 /HPF Kettering HealthUrine Squamous Epithelial CellsNone Seen [HPF] Kettering HealthUrine Urobilinogen0.2 EU/dL0.2-1.0 EU/dL [facility]tering HealthUrine WBC>20 /HPFAbnormal0-5 /HPFKettering HealthUrinalysis complete panel (U)on 71-99-5516FSVUHRKA UL >9821HighNegativeMagruder Memorial Hospital on above:Order Comment: Specimen Type: URINE SPECIMEN [facility] Address: [address] [place], [place] [address]Performed By: #### 33165-5 #### [facility] CLIA [id number] [address] [place] [address] [place] AMERICABilirubin Ql (U)Negative NormalNegativeMagruder Memorial Hospital on above:Order Comment: Specimen Type: URINE SPECIMEN [facility] Facility[facility] Address: [address] [place], [place] [address]Performed By: #### 38555-5 #### [facility] CLIA [id number] [address] [place] [address] [place] AMERICAClarity (Unsp spec)Cloudy AbnormalClearCFulton County Health Center on above:Order Comment: Specimen Type: URINE SPECIMEN [facility] Facility[facility] Address: [address] [place], [place] [address]Performed By: #### 47321-2 #### [facility] CLIA [id number] [address] [place] [address] [place] AMERICAColor (U)YellowNormalYellow [facility] on above:Order Comment: Specimen Type: URINE SPECIMEN [facility] Facility[facility] Address: [address] [place], [place] [address]Performed By: #### 10221-8 #### [facility] CLIA [id number] [address] [place] [address] [place] AMERICAEpithelial cells LM.HPF (Urine sed) [#/Area]None SeenNormalCFulton County Health Center on above: Order Comment: Specimen Type: URINE SPECIMEN [facility] Address: [address] [place], [place] [address]Performed By: #### 81045-2 #### [facility] CLIA [id number] [address] [place] [address] [place] AMERICAGlucose Test strip (U) [Mass/Vol]NegativeNormalNegativeMagruder Memorial Hospital on above:Order Comment: Specimen Type: URINE SPECIMEN Order[facility] Facility[facility] Address: [address] [place], [place] [address]Performed By: #### 24827-3 #### [facility] CLIA [id number] [address] [place] [address] [place] AMERICAHemoglobin Ql (U)Trace AbnormalNegativeMagruder Memorial Hospital on above:Order Comment: Specimen Type: URINE SPECIMEN [facility] Facility[facility] Address: [address] [place], [place] [address]Performed By: #### 43361-4 #### [facility] CLIA [id number] [address] [place] [address] [place] AMERICAHyaline casts (Urine sed) [#/Area]0 /[LPF]Normal0 /LPFCFulton County Health Center on above:Order Comment: Specimen Type: URINE SPECIMEN [facility] Address: [address] [place], [place] [address]Performed By: #### 54514-4 #### [facility] CLIA [id number] [address] [place], [place] [address] [place] AMERICAKetones Ql (U)NegativeNormal NegativeMagruder Memorial Hospital on above:Order Comment: Specimen Type: URINE SPECIMEN [facility] Facility[facility] Address: [address] [place], [place] [address]Performed By: #### 06122-5 #### [facility] CLIA [id number] [address] [place], [place] [address] [place] AMERICALeukocyte esterase Test strip Ql (U)3+AbnormalNegativeMagruder Memorial Hospital on above:Order Comment: Specimen Type: URINE SPECIMEN [facility] Facility[facility] Address: [address] [place], [place] [address]Performed By: #### 19042-9 #### [facility] CLIA [id number] [address] [place] [address] [place] AMERICANitrite Ql (U)Positive AbnormalNegativeMagruder Memorial Hospital on above:Order Comment: Specimen Type: URINE SPECIMEN [facility] Address: [address] [place], [place] [address]Performed By: #### 76913-9 #### [facility] CLIA [id number] [address] [place] [address] [place] AMERICApH (U)6.0 [pH]Normal<8.5 [facility] on above:Order Comment: Specimen Type: URINE SPECIMEN Order[facility] Facility[facility] Address: [address] [place], [place] [address]Performed By: #### 15336-1 #### [facility] CLIA [id number] [address] [place] [address] [place] AMERICAProtein (U) [Mass/Vol] NegativeNormalNegativeMagruder Memorial Hospital on above:Order Comment: Specimen Type: URINE SPECIMEN [facility] Facility[facility] Address: [address] [place], [place] [address]Performed By: #### 17012-8 #### [facility] CLIA [id number] [address] [place] [address] [place] AMERICARBC LM.HPF (Urine sed) [#/Area]0-2 /HPFNormal0-2 /HPFMagruder Memorial Hospital on above:Order Comment: Specimen Type: URINE SPECIMEN [facility] Facility[facility] Address: [address] [place], [place] [address]Performed By: #### 31811-7 #### [facility] CLIA [id number] [address] [place] [address] [place] AMERICASpecific gravity (U) [Rel density]1.536Mzlkvw4.005-1.030[facility] on above:Order Comment: Specimen Type: URINE SPECIMEN [facility] Facility[facility] Address: [address] [place], [place] [address]Performed By: #### 57291-0 #### [facility] [place] [id number] [address] [place] [address] [place] AMERICAUrobilinogen Ql (U)0.2 EU/dL Normal0.2-1.0 EU/dLMagruder Memorial Hospital on above:Order Comment: Specimen Type: URINE SPECIMEN [facility] Facility[facility] Address: [address] [place], [place] [address]Performed By: #### 86853-8 #### [facility] CLIA [id number] [address] [place] [address] [place] AMERICAWBC LM.HPF (Urine sed) [#/Area]/[HPF]Abnormal0-5 /HPFMagruder Memorial Hospital on above:Order Comment: Specimen Type: URINE SPECIMEN [facility] Address: [address] [place], [place] [address]Performed By: #### 23764-5 #### [facility] [place] [id number] [address] [place] [address] [place] AMERICALaboratory - Chemistry and Chemistry - challengeon 74-93-5117Dkyzzhrbf Ql (U)COLOR INTERFERENCEAbnormal NEGATIVEKettering HealthKetones Ql (U)COLOR INTERFERENCE mg/dL AbnormalNEGATIVEOhioHealth Southeastern Medical Centerpecific gravity (U) [Rel density]1.0151.005-1.025K[facility]tering HealthLaboratory - Specimen informationon 71-80-0825Dfkfeoionn (U)SLIGHTLY CLOUDYAbnormalCLEARFProtestant Deaconess HospitalColor (U)ORANGEAbnormalYELLOWKettering HealthLaboratory - Urinalysison 09-48-6313Phcsabchz esterase Test strip Ql (U) COLOR INTERFERENCEAbnormalNEGMercy Health – The Jewish HospitalMucus Ql (Urine sed)NONE SEENNONE SEENKettering HealthNitrite Ql (U) COLOR INTERFERENCEAbnormalNEGATIVEKettering HealthProtein Ql (U)COLOR INTERFERENCE mg/dLAbnormalNEG/TRACEKettering HealthNo Panel Informationon 02-50-4062Aegov BacteriaMODERATE #/HPFAbnormalNONE SEEN [facility] HealthUrine Culture ReflexedALREADY ORDEREDKettering HealthUrine Glucose (UA)COLOR INTERFERENCE mg/dLAbnormal NEGATIVEKettering HealthUrine Occult BloodCOLOR INTERFERENCE AbnormalNEGATIVEKettering HealthUrine Other CastsNONE SEEN #/LPFNONE [facility]aritan HospitalUrine Other CrystalsNone Seen #/HPFNone [facility] HospitalUrine pHCOLOR INTERFERENCE Abnormal5.0-9.0K[facility]tering HealthUrine RBC0-2 #/HPF0-2FProtestant Deaconess HospitalUrine Squamous Epithelial CellsRARE #/LPFNONE/RARE [facility] HealthUrine UrobilinogenCOLOR INTERFERENCE EU/dL Abnormal0.2-1.0[facility]tering HealthUrine LUB08-23 #/HPFAbnormalNONE [facility]itan HospitalBasophils Auto (Bld) [#/Vol]on 04-05-2024 Basophils (Bld) [#/Vol]Automated basophil count0.0-0.1FProtestant Deaconess HospitalBasophils/100 WBC Auto (Bld)on 56-55-4308Rghgtvsjl/100 WBC (Bld)Automated basophil %0.2-2.0[facility] HealthEosinophils/100 WBC Auto (Bld)on 16-36-5490Ycuazpenbat/100 WBC (Bld)Automated eosinophil %0.9-7.0 [facility] HealthErythrocyte distribution width Auto (RBC) [Ratio]on 35-23-5897Obzfbjwuitu distribution width (RBC) [Ratio]Erythrocyte distribution width [Ratio] by Automated count11.0-15.0K[facility]tering HealthHematocrit Auto (Bld) [Volume fraction]on 94-75-1453Hbirnbwbfp (Bld) [Volume fraction]Hematocrit [Volume Fraction] of Blood by Automated countLow 42.0-54.0K[facility] HealthHemoglobin [Mass/volume] in Bloodon 56-93-5321Dvxvtodsew (Bld) [Mass/Vol]Hemoglobin [Mass/volume] in BloodLow 14.0-18.0K[facility]tering HealthIron binding capacity [Mass/volume] in Serum or Plasmaon 12-02-3254Ecng binding capacity [Mass/Vol]Iron binding capacity [Mass/volume] in Serum or Nxbhrc499.0-450.0K[facility]tering HealthIron saturation [Mass Fraction] in Serum or Plasmaon 09-92-8453Evuo saturation [Mass fraction]Iron saturation [Mass Fraction] in Serum or Plasma [facility] HealthLaboratory - Chemistry and Chemistry - challengeon 84-45-2899Tqyrqzxmr (Vitamin B12) [Mass/Vol]491 pg/hB501-9214 [facility] HealthComment on above:Performed at: [facility] [place] [id number] Director: Navin High PhD, Phone: [phone] [Mass/Vol]37.0 ng/mL26.0-388.0K[facility]tering HealthFree T4 [Mass/Vol]0.83 ng/dL0.76-1.46K[facility]tering HealthIron [Mass/Vol]89.0 ug/dL65.0-175.0K[facility]tering HealthTSH Qn 3.909 m[IU]/LHigh0.358-3.740[facility] HealthLaboratory - Hematology and Cell countson 27-95-9489Kvflmlzn granulocytes/100 WBC (Bld)0.3 % 0.0-0.5FProtestant Deaconess HospitalLeukocytes [#/volume] corrected for nucleated erythrocytes in Blood by Automated counon 89-84-8835OOQ corrected for nucl RBC Auto (Bld) [#/Vol]Leukocytes [#/volume] corrected for nucleated erythrocytes in Blood by Automated coun4.0-11.0[facility] Lymphocytes Auto (Bld) [#/Vol]on 62-07-7775Lteijmywvrt (Bld) [#/Vol]Lymphocytes [#/volume] in Blood by Automated count1.2-3.8[facility] Lymphocytes/100 WBC Auto (Bld)on 63-94-0096Ooeehdqgrka/100 WBC (Bld) Lymphocytes/100 leukocytes in Blood by Automated count20.5-60.0[facility] HospitalH Auto (RBC) [Entitic mass]on 66-44-7210AJQ (RBC) [Entitic mass]MCH [Entitic mass] by Automated count25.9-34.0[facility] HospitalHC Auto (RBC) [Mass/Vol]on 43-85-8910BRMQ (RBC) [Mass/Vol]MCHC [Mass/volume] by Automated count29.9-35.2FProtestant Deaconess HospitalMCV Auto (RBC) [Entitic vol]on 17-24-1821MBF (RBC) [Entitic vol]MCV [Entitic volume] by Automated mrxshYmxl50.0-94.0[facility]tering HealthMonocytes Auto (Bld) [#/Vol]on 11-75-6873Ymltdxtwn (Bld) [#/Vol]Automated blood monocyte count High0.3-0.8K[facility]tering HealthMonocytes/100 WBC Auto (Bld)on 93-31-6572Eiqvoihxl/100 WBC (Bld)Automated monocyte %High1.7-12.0[facility]tering HealthNeutrophils Auto (Bld) [#/Vol]on 02-98-5180Jarbmpucvyf (Bld) [#/Vol]Neutrophils [#/volume] in Blood by Automated count1.4-6.5FProtestant Deaconess HospitalNeutrophils/100 WBC Auto (Bld)on 04-05-2024 Neutrophils/100 WBC (Bld)Automated neutrophil %43.0-75.0K[facility]tering HealthNo Panel Informationon 19-23-7704Uzdmkoyfnze # (Auto)0.2 10 3/uL 0.0-0.7FProtestant Deaconess HospitalFolate23.60 ng/mL8.60-58.90K[facility]tering HealthImmature Granulocyte # (Auto)0.02 10 3/uL0.00-0.03 [facility] HealthPlatelet mean volume Auto (Bld) [Entitic vol]on 47-15-2392Ygeoxlbj mean volume (Bld) [Entitic vol]Platelet mean volume [Entitic volume] in Blood by Automated countLow9.5-13.5FProtestant Deaconess Hospital Platelets Auto (Bld) [#/Vol]on 72-97-8343Xzqvlsjhi (Bld) [#/Vol]Platelets [#/volume] in Blood by Automated qayhv392-241CgsgysssvKettering Health RBC Auto (Bld) [#/Vol]on 55-60-8338HAT (Bld) [#/Vol]Erythrocytes [#/volume] in Blood by Automated countLow4.70-6.10[facility] Southeastern Medical Centererum or plasma thyroperoxidase antibody assay (units/volume)on 14-18-0502AKQ Ab QnSerum or plasma thyroperoxidase antibody assay (units/volume)0-34K[facility]tering HealthComment on above:Performed at: [place] [id number] Director: Navin High PhD, Phone: [phone] Ophthalmic OCT panelon 66-06-8715ETKYSaint Luke's Hospital Eye Images reviewed and comparison made to [...] Stable. No changes over the last 3 months.[facility] HealthcareS[facility] HealthcareRadiology Study observation (narrative)[facility] HealthcarePerimetry studyon 21-52-2121[facility] HealthcareRadiology Study observation (narrative)[facility] HealthcareLaboratory - Chemistry and Chemistry - challengeon 93-95-7186Xseccdyod Ql (U)Negative [facility] HealthGlucose (U) [Mass/Vol]NegativeKettering HealthKetones Ql (U)NegativeKettering HealthpH (U)5.0 [pH][facility] Sout[facility] Medical Centerpecific gravity (U) [Rel density] 1.010Kettering HealthUrobilinogen (U) [Mass/Vol]0.2 mg/dL [facility] HealthLaboratory - Specimen informationon 03-20-2024 Appearance (U)clearKettering HealthColor (U)yellowKettering HealthLaboratory - Urinalysison 60-99-1892Ltghhfbjo esterase Test strip Ql (U)NegativeKettering HealthNitrite Ql (U)Negative [facility] HealthProtein Ql (U)+[facility] HealthNo Panel Informationon 96-04-9479Hvjyx Occult BloodNegativeKettering HealthFPG ECG *CARDIOLOGY ONLY*on 52-25-4391BMD ECG *CARDIOLOGY ONLY*[facility] [place] [address] Electrocardiograph Report Signed Patient: Norberto Washington MR#: [id number] [birth year] : 1940 Acct:[id number] Age/Sex: 83 / M ADM Date: 03/14/24 Loc: [facility] Room: Type: [facility] Attending Dr: Keely Hernandez MD Ordering Provider: [...] change was found Confirmed by Keely Hernandez ([id number]) on 03/14/2024 6:03:36 PM Referred By: Electronically Signed By: Keely Hernandez Transcribed By: MUS Signed By Keely Hernandez MD 03/14/[address] [place] [address] Physician GroupBasophils Auto (Bld) [#/Vol]on 95-42-0067Xneupchqi (Bld) [#/Vol]Automated basophil count0.0-0.1FProtestant Deaconess HospitalBasophils/100 WBC Auto (Bld)on 22-06-6996Lzacrfkaw/100 WBC (Bld)Automated basophil %0.2-2.0[facility] Eosinophils/100 WBC Auto (Bld)on 84-12-4167Gnvlqlydatb/100 WBC (Bld)Automated eosinophil %Low0.9-7.0K[facility]tering HealthErythrocyte distribution width Auto (RBC) [Ratio]on 82-38-9252Jfpeyvzdydt distribution width (RBC) [Ratio]Erythrocyte distribution width [Ratio] by Automated count11.0-15.0 [facility] HealthEstimated glomerular filtration rate (GFR) non- Americanon 42-79-5069TTF/1.73 sq M.predicted among non-blacks MDRD (S/P/Bld) [Vol rate/Area]Estimated glomerular filtration rate (GFR) non- AmericanLow>=60 mL/min/1.73m 2FProtestant Deaconess HospitalGlobulin Calc (S) [Mass/Vol]on 99-67-8754Touggelk (S) [Mass/Vol]Serum globulin measurement by calculation (mass/volume)[facility] HealthHematocrit Auto (Bld) [Volume fraction]on 87-05-2357Bbwvchqmsv (Bld) [Volume fraction]Hematocrit [Volume Fraction] of Blood by Automated ubupnFrc33.0-54.0[facility] HealthHemoglobin [Mass/volume] in Bloodon 54-06-7771Nesrajqkwo (Bld) [Mass/Vol]Hemoglobin [Mass/volume] in CgrnaUvp51.0-18.0K[facility] HealthINR in Platelet poor plasma by Coagulation assayon 11-71-7589SNV Coag (PPP) [Relative time]INR in Platelet poor plasma by Coagulation assay [facility] HealthComment on above:DESIRED INR:2.0-3.0 CONDITIONS NOT LISTED BELOW2.5-3.5 FOR PROSTHETIC HEART VALVE REPLACEMENT2.5-3.5 RECURRENT THROMBOSISLaboratory - Chemistry and Chemistry - challengeon 59-61-6774Mihcsxfkc Ql (U)NegativeNEGATIVEKettering HealthGlucose (U) [Mass/Vol] NegativeNEGATIVEKettering HealthKetones Ql (U)NegativeNEGATIVE [facility] HealthpH (U)6.0 [pH]5.0-9.0[facility] Medical Centerpecific gravity (U) [Rel density]1.0251.005-1.025K[facility] HealthUrobilinogen Qn (U)0.2 {Americo'U}/dL0.2-1.0[facility] HealthAlbumin [Mass/Vol]3.8 g/dL3.4-5.0[facility] ALP [Catalytic activity/Vol]66 U/K87-290LsbydyucxKettering HealthALT [Catalytic activity/Vol]26 U/V15-03WxdnebsuaKettering HealthAST [Catalytic activity/Vol]25 U/M80-22TroprpdelKettering HealthBilirubin [Mass/Vol]0.5 mg/dL0.2-1.0[facility] HealthCalcium [Mass/Vol]8.8 mg/dL8.5-10.1FProtestant Deaconess HospitalChloride [Moles/Vol]100 mmol/L 98-107K[facility] HealthCO2 [Moles/Vol]26.3 mmol/L21.0-32.0 [facility] HealthCreatinine [Mass/Vol]1.27 mg/dL0.70-1.30 [facility] HealthGFR/1.73 sq M.predicted MDRD (S/P/Bld) [Vol rate/Area]mL/min/{1.73_m2}>=60 mL/min/1.73m 2FProtestant Deaconess Hospital Glucose [Mass/Vol]116 mg/kUYydn84-358IbmywkagsKettering Health Natriuretic peptide B (Bld) [Mass/Vol]254.0 pg/mL<=1800.0[facility] HealthPotassium [Moles/Vol]4.7 mmol/L3.5-5.1FProtestant Deaconess HospitalProtein [Mass/Vol]7.0 g/dL6.4-8.2FCleveland Clinic Akron [facility] Lodi Hospitalodium [Moles/Vol]136 mmol/R116-662VusjjdaknKettering HealthUrea nitrogen [Mass/Vol]20.0 mg/dLHigh7.0-18.0[facility] HealthUrea nitrogen/Creatinine [Mass ratio]15.7 mg/mgKettering Health Laboratory - Hematology and Cell countson 33-43-8569Tcnfsskl granulocytes/100 WBC (Bld)0.7 %High0.0-0.5FProtestant Deaconess HospitalLaboratory - Specimen informationon 75-44-2953Rizmujlldw (U)CLEARCLEARFProtestant Deaconess HospitalColor (U)LT. YELLOWYELLOWKettering HealthLaboratory - Urinalysison 25-14-0227Yjfjuirlq esterase Test strip Ql (U)SMALLAbnormalNEGATIVE [facility] HealthMucus Ql (Urine sed)NONE SEENNONE SEENKettering HealthNitrite Ql (U)PositiveAbnormalNEGATIVEKettering HealthProtein Ql (U)NegativeNEG/TRACEKettering Health Leukocytes [#/volume] corrected for nucleated erythrocytes in Blood by Automated counon 78-72-5612IRV corrected for nucl RBC Auto (Bld) [#/Vol]Leukocytes [#/volume] corrected for nucleated erythrocytes in Blood by Automated counHigh 4.0-11.0[facility] HealthLymphocytes Auto (Bld) [#/Vol]on 75-23-8928Skrjiiyasve (Bld) [#/Vol]Lymphocytes [#/volume] in Blood by Automated countLow1.2-3.8[facility] HealthLymphocytes/100 WBC Auto (Bld)on 70-26-6078Tyiaetpsuck/100 WBC (Bld)Lymphocytes/100 leukocytes in Blood by Automated cgkkeQli49.5-60.0[facility] HospitalH Auto (RBC) [Entitic mass]on 71-80-1450ACA (RBC) [Entitic mass]MCH [Entitic mass] by Automated count25.9-34.0[facility] HealthMCHC Auto (RBC) [Mass/Vol]on 25-42-0767QZXZ (RBC) [Mass/Vol]MCHC [Mass/volume] by Automated count29.9-35.2FProtestant Deaconess HospitalMCV Auto (RBC) [Entitic vol]on 75-16-9927MIL (RBC) [Entitic vol]MCV [Entitic volume] by Automated countHigh 80.0-94.0[facility] HealthMonocytes Auto (Bld) [#/Vol]on 85-68-0775Rvrftzdzs (Bld) [#/Vol]Automated blood monocyte count0.3-0.8K[facility] HealthMonocytes/100 WBC Auto (Bld)on 23-70-9651Misyrjvte/100 WBC (Bld)Automated monocyte %1.7-12.0[facility] Neutrophils Auto (Bld) [#/Vol]on 40-27-5414Aneqpmkxral (Bld) [#/Vol]Neutrophils [#/volume] in Blood by Automated countHigh1.4-6.5FProtestant Deaconess HospitalNeutrophils/100 WBC Auto (Bld)on 24-22-4915Kwxcbtajlpl/100 WBC (Bld) Automated neutrophil %High43.0-75.0[facility] HealthNo Panel Informationon 00-43-1037Xbweg BacteriaMODERATE #/HPFAbnormalNONE [facility] HospitalUrine Culture ReflexedYEAdena Regional Medical CenterUrine Occult BloodTRACE-INEGATIVEKettering HealthUrine Other CastsNONE SEEN #/LPFNONE [facility] HospitalUrine Other CrystalsNone Seen #/HPFNone [facility] HospitalUrine RBC0-2 #/HPF0-2FProtestant Deaconess HospitalUrine Squamous Epithelial CellsFEW #/LPFAbnormalNONE/RAREKettering HealthUrine FDO28-08 #/HPF AbnormalNONE [facility] HospitalEosinophils # (Auto)0.1 10 3/uL0.0-0.7FProtestant Deaconess HospitalImmature Granulocyte # (Auto)0.10 10 3/uLHigh0.00-0.03[facility] HealthTroponin I High Sensitivity 6.6 pg/mL4.0-76.1FProtestant Deaconess HospitalComment on above:CUT-OFF POINTS HAVE BEEN ESTABLISHED BASED ON THE FOURTHUNIVERSAL DEFINITION OF MYOCARDIAL INFARCTION. THE UPPERREFERENCE LIMIT (URL) OF TROPONIN, DEFINED THE 99THPERCENTILE OF cTnI DISTRIBUTION IN A REFERENCE POPULATION,HAS BEEN CONFIRMED THE DECISION THRESHOLD FOR MIDIAGNOSIS.99TH PERCENTILE = 76.2 PG/MLNOTE: HIGH-SENSITIVITY TROPONIN ASSAY IS NOT INTENDED TO BEUSED IN ISOLATION BUT SHOULD BE INTERPRETED IN CONJUNCTIONWITH OTHER DIAGNOSTIC AND CLINICAL INFORMATION.Platelet mean volume Auto (Bld) [Entitic vol]on 03-11-2024 Platelet mean volume (Bld) [Entitic vol]Platelet mean volume [Entitic volume] in Blood by Automated countLow9.5-13.5FProtestant Deaconess HospitalPlatelets Auto (Bld) [#/Vol]on 68-68-0304Pycnrrbxe (Bld) [#/Vol]Platelets [#/volume] in Blood by Automated -729WqcjpfsgqKettering HealthProthrombin time (PT)on 66-60-9151IP Coag (PPP) [Time]Prothrombin time (PT)9.0-11.6FProtestant Deaconess HospitalRBC Auto (Bld) [#/Vol]on 29-07-8436RNC (Bld) [#/Vol] Erythrocytes [#/volume] in Blood by Automated countLow4.70-6.10[facility] Medical Centererum or plasma albumin/globulin mass ratioon 03-11-2024 Albumin/Globulin [Mass ratio]Serum or plasma albumin/globulin mass ratio [facility] Medical Centererum or plasma anion gap determinationon 33-25-1013Omhzj gap [Moles/Vol]Serum or plasma anion gap determinationKettering HealthUrine Cultureon 86-14-4447Huuprlfy identified Cx Nom (U) ORGANISM: Klebsiella oxytoca (O:KLEOXY) [place] Count >100,000 Aerobic ROCIO Charge (NMIC56) SUSCEPTIBILITY ORGANISM: O:KLEOXY ANTIBIOTIC INTERPRETATION ROCIO Amikacin S <16 Amoxacillin/K Clavulanate S <8 Ampicillin/Sulbactam S 88/4 Aztreonam S <4 Cefazolin R >16 Cefepime S <2 Ceftazidime S <1 Ceftazidime/Avibactam S <4 Ceftolozane/Tazobactam S <2 Ceftriaxone S <1 Cefuroxime S <4 Ciprofloxacin S <0.25 Ertapenem S <0.5 Gentamicin S <2 Levofloxacin S <0.5 Meropenem S <1 Meropenem/Vaborbactam S <2 Nitrofurantoin S <32 Piperacillin/Tazobactam S <8 Tetracycline S <4 Tigecycline S <2 Tobramycin S <2 Trimethoprim/Sulfamethoxazole S <0.5 S = SUSCEPTIBLE I = INTERMEDIATE R = RESISTANT BLANK = DATA NOT AVAILABLE, OR DRUG NOT ADVISABLE OR TESTED R* = RESISTANCE DUE TO EXTENDED SPECTRUM BETA-LACTAMASES ESBL = EXTENDED SPECTRUM BETA-LACTAMASE TFG = THYMIDINE-DEPENDENT STRAIN CHANDRAKANT = BETA-LACTAMASE POSITIVE IB = INDUCIBLE BETA-LACTAMASE. APPEARS IN PLACE OF 'S' WITH SPECIES KNOWN TO POSSESS INDUCIBLE BETA-LACTAMASES. POTENTIALLY THEY MAY BECOME RESISTANT TO ALL B-LACTAM DRUGS. PERFORMED BY: [facility] [address] [place] [address] PATHOLOGIST JUVENILE CORRECTIONAL OFFICER YOON LAYNE M.D.NormalThe [facility] Point Physician GroupComment on above: Performed By: #### CUU #### [facility] [address] [place] [address] USAUrine cultureOrdered By: Juan Sal on 39-40-6376Ndifwggh identified Cx Nom (U)AbnormalKettering HealthBacteria identified Cx Nom (U)AbnormalKettering HealthBacteria Ur Culton 61-81-8554Zodriuxv identified Cx Nom (U)CULTURE, URINE: No growth (<1,000 CFU/ml)NormalPromedica Flower HospitalComment on above: Performed By: #### 630-4 #### [facility] CLIA [id number] [address] [place] [address] [place] AMERICALaboratory - Chemistry and Chemistry - challengeon 19-26-6063Kufxibyxq Ql (U)NegativeNegativeKettering HealthGlucose (U) [Mass/Vol]NegativeNegativeKettering HealthKetones Ql (U)NegativeNegativeKettering HealthpH (U)5.5 [pH]<8.5FCleveland Clinic Akron General Lodi Hospitalpecific gravity (U) [Rel density]1.0161.005-1.030K[facility] HealthLaboratory - Microbiology and Antimicrobial susceptibilityOrdered By: Leticiafabiana Milian on 06-45-3895Dkkfdjil identified Cx Nom (U)[facility] - Specimen informationon 02-28-7846Ftlgozsqgw (U)ClearClearFProtestant Deaconess HospitalColor (U)YellowYellowKettering Health Laboratory - Urinalysison 46-64-3576Ytqhdatj LM.HPF (Urine sed) [#/Area]Negative NegativeKettering HealthHyaline casts LM Ql (Urine sed)0 /LPF0 /LPFFProtestant Deaconess HospitalLeukocyte esterase Test strip Ql (U) NegativeNegClinton Memorial HospitalNitrite Ql (U)NegativeNegative [facility] HealthProtein Ql (U)NegativeNegativeKettering HealthNo Panel Informationon 70-51-3717Xsasl Occult Blood NegativeNegClinton Memorial HospitalUrine RBC0-2 /HPF0-2 /HPF [facility] HealthUrine Squamous Epithelial CellsNone Seen [HPF] [facility]tering HealthUrine Urobilinogen0.2 EU/dL0.2-1.0 EU/dL [facility] HealthUrine WBC0-5 /HPF0-5 /HPFKettering HealthUrinalysis complete panel (U)on 00-35-4839Fvjsfdma LM.HPF (Urine sed) [#/Area]NegativeNormalNegativeMagruder Memorial Hospital on above: Order Comment: Specimen Type: URINE SPECIMEN Ordering Facility: [facility] Address: [address] [place], [place] [address]Performed By: #### [id number] #### [facility] CLIA [id number] [address] [place] [address] [place] OF AMERICABilirubin Ql (U)Negative NormalNegativeMagruder Memorial Hospital on above:Order Comment: Specimen Type: URINE SPECIMEN Ordering Facility: [facility] Address: [address] [place], [place] [address]Performed By: #### [id number] #### [facility] CLIA [id number] [address] [place], [place] [address] [place] OF AMERICAClarity (Unsp spec)Clear NormalClearCFulton County Health Center on above:Order Comment: Specimen Type: URINE SPECIMEN Ordering Facility: [facility] Address: [address] [place], [place] [address]Performed By: #### [id number] #### [facility] CLIA [id number] [address] [place] [address] [place] AMERICAColor (U)YellowNormalYellow [facility] on above:Order Comment: Specimen Type: URINE SPECIMEN Ordering Facility: [facility] Address: [address] [place], [place] [address]Performed By: #### [id number] #### [facility] CLIA [id number] [address] [place], [place] [address] [place] AMERICAEpithelial cells LM.HPF (Urine sed) [#/Area]None SeenNormalCFulton County Health Center on above: Order Comment: Specimen Type: URINE SPECIMEN Ordering Facility: [facility] Address: [address] [place], [place] [address]Performed By: #### 30480-0 #### [facility] CLIA [id number] [address] [place], [place] [address] [place] OF AMERICAGlucose Test strip (U) [Mass/Vol]NegativeNormalNegativeMagruder Memorial Hospital on above:Order Comment: Specimen Type: URINE SPECIMEN Ordering Facility: [facility] Address: [address] [place], [place] [address]Performed By: #### [id number] #### [facility] CLIA [id number] [address] [place], [place] [address] [place] AMERICAHemoglobin Ql (U)Negative NormalNegativeMagruder Memorial Hospital on above:Order Comment: Specimen Type: URINE SPECIMEN Ordering Facility: [facility] Address: [address] [place], [place] [address]Performed By: #### [id number] #### [facility] CLIA [id number] [address] [place] [address] [place] AMERICAHyaline casts (Urine sed) [#/Area]0 /[LPF]Normal0 /LPFCFulton County Health Center on above:Order Comment: Specimen Type: URINE SPECIMEN Ordering Facility: [facility] Address: [address] [place], [place] [address]Performed By: #### [id number] #### [facility] CLIA [id number] [address] [place] [address] [place] AMERICAKetones Ql (U)NegativeNormal NegativeMagruder Memorial Hospital on above:Order Comment: Specimen Type: URINE SPECIMEN Ordering Facility: [facility] Address: [address] [place], [place] [address]Performed By: #### 88334-1 #### [facility] CLIA [id number] [address] [place] [address] [place] AMERICALeukocyte esterase Test strip Ql (U)NegativeNormalNegativeMagruder Memorial Hospital on above: Order Comment: Specimen Type: URINE SPECIMEN Ordering Facility: [facility] Address: [address] [place], [place] [address]Performed By: #### 54496-0 #### [facility] CLIA [id number] [address] [place] [address] [place] AMERICANitrite Ql (U)NegativeNormal NegativeMagruder Memorial Hospital on above:Order Comment: Specimen Type: URINE SPECIMEN Ordering Facility: [facility] Address: [address] [place], [place] [address]Performed By: #### 27295-6 #### [facility] CLIA [id number] [address] [place] [address] [place] AMERICApH (U)5.5 [pH]Normal<8.5 [facility] on above:Order Comment: Specimen Type: URINE SPECIMEN Ordering Facility: [facility] Address: [address] [place], [place] [address]Performed By: #### 86506-5 #### [facility] IA [id number] [address] [place] [address] [place] AMERICAProtein (U) [Mass/Vol] NegativeNormalNegativeMagruder Memorial Hospital on above:Order Comment: Specimen Type: URINE SPECIMEN Ordering Facility: [facility] Address: [address] [place], [place] [address]Performed By: #### 13605-5 #### [facility] [place] [id number] [address] [place] [address] [place] W[facility]UM[facility] COMMUNITY HOSPITALRBC LM.HPF (Urine sed) [#/Area]0-2 /HPFNormal0-2 /HPFMagruder Memorial Hospital on above:Order Comment: Specimen Type: URINE SPECIMEN Ordering Facility: [facility] Address: [address] [place], [place] [address]Performed By: #### 12188-7 #### [facility] IA [id number] [address] [place] [address] [place] AMERICASpecific gravity (U) [Rel density]1.540Veowth4.005-1.030[facility] on above:Order Comment: Specimen Type: URINE SPECIMEN Ordering Facility[facility] Address: [address] [place], [place] [address]Performed By: #### 34536-8 #### [facility] [place] [id number] [address] [place] [address] [place] AMERICAUrobilinogen Ql (U)0.2 EU/dL Normal0.2-1.0 EU/dLCleveland Clinic ClevelandComment on above:Order Comment: Specimen Type: URINE SPECIMEN Ordering Facility: [facility] Address: [address] [place], [place] [address]Performed By: #### 13791-6 #### [facility] CLIA [id number] [address] [place] [address] [place] AMERICAWBC LM.HPF (Urine sed) [#/Area]0-5 /HPFNormal0-5 /HPFPromedica Flower HospitalComment on above:Order Comment: Specimen Type: URINE SPECIMEN Ordering Facility: [facility] Address: [address] [place], [place] [address]Performed By: #### 80234-4 #### [facility] CLIA [id number] [address] [place] [address] STATES OF W[facility]UMED[facility]ARR[facility] COMMUNITY HOSPITALCNOVon 45-34-9212BGZYZxkwby Visit (UROLLN) NORBERTO WASHINGTON ([id number]) 1940 M Date Time Provider Department 02/08/24 8:30 AM LETICIA MILIAN UROLLN During your visit today, we recorded the following information about you: Pulse Blood pressure Weight 54/minute 119/58 102.1 kg Leticia Milian, INSURANCE EXAMINING CLERK.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 02/08/2024 9:06 AM Signed Norberto Washington [address] [address] HISTORY OF PRESENT ILLNESS: Seen 08/04/23 for BPH w obs/luts, UTI Pt is presently on correction antibiotic due to infection in toes that [...] constipation last BM a couple days ago KLM=022 ML Location: BPH w obs/luts, UTI Pain Character: none Severity Scale: see AUA score, see lab Duration: BPH w obs/luts, UTI [employer] SYMPTOMS SCORE. 1. INCOMPLETE EMPTYING [...] tenderness. EXTREMITIES: No le (more content not included)...NormalPromedica Flower HospitalBasophils Auto (Bld) [#/Vol]on 36-37-1638Fldsvpudy (Bld) [#/Vol] Automated basophil count0.0-0.1FProtestant Deaconess HospitalBasophils/100 WBC Auto (Bld)on 21-65-6107Kycifardf/100 WBC (Bld)Automated basophil %0.2-2.0 [facility] HealthEosinophils/100 WBC Auto (Bld)on 01-30-2024 Eosinophils/100 WBC (Bld)Automated eosinophil %0.9-7.0[facility] HealthErythrocyte distribution width Auto (RBC) [Ratio]on 34-58-2619Pzqwkiqpiqw distribution width (RBC) [Ratio]Erythrocyte distribution width [Ratio] by Automated count11.0-15.0[facility] HealthEstimated glomerular filtration rate (GFR) non- Americanon 32-13-1014EIJ/1.73 sq M.predicted among non-blacks MDRD (S/P/Bld) [Vol rate/Area]Estimated glomerular filtration rate (GFR) non- AmericanLow>=60 mL/min/1.73m 2FProtestant Deaconess HospitalGlobulin Calc (S) [Mass/Vol]on 56-80-0518Rhujdaon (S) [Mass/Vol]Serum globulin measurement by calculation (mass/volume)[facility] HealthHematocrit Auto (Bld) [Volume fraction]on 80-91-2388Goleeosesy (Bld) [Volume fraction]Hematocrit [Volume Fraction] of Blood by Automated countLow 42.0-54.0[facility] HealthHemoglobin [Mass/volume] in Bloodon 55-82-8596Nvayizscgo (Bld) [Mass/Vol]Hemoglobin [Mass/volume] in Blood14.0-18.0 [facility] HealthINR in Platelet poor plasma by Coagulation assayon 84-10-9788NWL Coag (PPP) [Relative time]INR in Platelet poor plasma by Coagulation assayKettering HealthComment on above:DESIRED INR:2.0-3.0 CONDITIONS NOT LISTED BELOW2.5-3.5 FOR PROSTHETIC HEART VALVE REPLACEMENT2.5-3.5 RECURRENT THROMBOSISLaboratory - Chemistry and Chemistry - challengeon 65-85-2121Nawbweh [Mass/Vol]3.9 g/dL3.4-5.0[facility] HealthALP [Catalytic activity/Vol]79 U/S75-412QjvjfnbyaKettering HealthALT [Catalytic activity/Vol]25 U/Z81-45YtbhbirloKettering Health AST [Catalytic activity/Vol]25 U/H45-53LujpeewsaKettering Health Bilirubin [Mass/Vol]0.4 mg/dL0.2-1.0[facility] HealthCalcium [Mass/Vol]9.3 mg/dL8.5-10.1FProtestant Deaconess HospitalChloride [Moles/Vol] 103 mmol/K15-667EstsqitstKettering HealthCO2 [Moles/Vol]24.9 mmol/L 21.0-32.0[facility] HealthCreatinine [Mass/Vol]1.32 mg/dLHigh 0.70-1.30K[facility] HealthGFR/1.73 sq M.predicted MDRD (S/P/Bld) [Vol rate/Area]mL/min/{1.73_m2}>=60 mL/min/1.73m 2FProtestant Deaconess HospitalGlucose [Mass/Vol]113 mg/nLKsen19-661KehqcteawKettering Health Magnesium [Mass/Vol]2.2 mg/dL1.8-2.4FProtestant Deaconess HospitalPotassium [Moles/Vol]4.5 mmol/L3.5-5.1FProtestant Deaconess HospitalProtein [Mass/Vol] 7.3 g/dL6.4-8.2FCleveland Clinic Akron General Lodi Hospitalodium [Moles/Vol]138 mmol/L 136-145K[facility] HealthUrea nitrogen [Mass/Vol]18.0 mg/dL 7.0-18.0[facility] HealthUrea nitrogen/Creatinine [Mass ratio] 13.6 mg/mgKettering HealthTS Qn7.582 m[IU]/LHigh0.358-3.740 [facility] HealthLaboratory - Hematology and Cell countson 00-53-1225Haftmrgj granulocytes/100 WBC (Bld)0.5 %0.0-0.5FProtestant Deaconess HospitalLeukocytes [#/volume] corrected for nucleated erythrocytes in Blood by Automated counon 15-92-3834XRO corrected for nucl RBC Auto (Bld) [#/Vol]Leukocytes [#/volume] corrected for nucleated erythrocytes in Blood by Automated coun4.0-11.0[facility] HealthLymphocytes Auto (Bld) [#/Vol]on 74-22-9097Nreymdgpbsk (Bld) [#/Vol]Lymphocytes [#/volume] in Blood by Automated count1.2-3.8K[facility] HealthLymphocytes/100 WBC Auto (Bld)on 57-28-9940Osozhigapwy/100 WBC (Bld)Lymphocytes/100 leukocytes in Blood by Automated count20.5-60.0[facility]. Mary HospitalH Auto (RBC) [Entitic mass]on 84-33-8781FEW (RBC) [Entitic mass]MCH [Entitic mass] by Automated count25.9-34.0[facility] HealthMCHC Auto (RBC) [Mass/Vol]on 21-20-3192UEFA (RBC) [Mass/Vol]MCHC [Mass/volume] by Automated xprghCcrn74.9-35.2FProtestant Deaconess HospitalMCV Auto (RBC) [Entitic vol] on 35-88-4212NWP (RBC) [Entitic vol]MCV [Entitic volume] by Automated count 80.0-94.0[facility] HealthMonocytes Auto (Bld) [#/Vol]on 73-95-3036Mrypjdepa (Bld) [#/Vol]Automated blood monocyte countHigh0.3-0.8 [facility] HealthMonocytes/100 WBC Auto (Bld)on 01-30-2024 Monocytes/100 WBC (Bld)Automated monocyte %High1.7-12.0[facility] HealthNeutrophils Auto (Bld) [#/Vol]on 77-80-0794Ozuucwdjgfs (Bld) [#/Vol]Neutrophils [#/volume] in Blood by Automated count1.4-6.5FProtestant Deaconess HospitalNeutrophils/100 WBC Auto (Bld)on 01-30-2024 Neutrophils/100 WBC (Bld)Automated neutrophil %43.0-75.0[facility] HealthNo Panel Informationon 71-25-5058[place] I High Hnbnujrnqmu83.5 pg/mL4.0-76.1FProtestant Deaconess HospitalComment on above:CUT-OFF POINTS HAVE BEEN ESTABLISHED BASED ON THE FOURTHUNIVERSAL DEFINITION OF MYOCARDIAL INFARCTION. THE UPPERREFERENCE LIMIT (URL) OF TROPONIN, DEFINED THE 99THPERCENTILE OF cTnI DISTRIBUTION IN A REFERENCE POPULATION,HAS BEEN CONFIRMED THE DECISION THRESHOLD FOR MIDIAGNOSIS.99TH PERCENTILE = 76.2 PG/MLNOTE: HIGH-SENSITIVITY TROPONIN ASSAY IS NOT INTENDED TO BEUSED IN ISOLATION BUT SHOULD BE INTERPRETED IN CONJUNCTIONWITH OTHER DIAGNOSTIC AND CLINICAL INFORMATION.Eosinophils # (Auto)0.2 10 3/uL0.0-0.7FProtestant Deaconess HospitalImmature Granulocyte # (Auto)0.05 10 3/uLHigh0.00-0.03K[facility] HealthPlatelet mean volume Auto (Bld) [Entitic vol]on 35-47-5915Otjueoiu mean volume (Bld) [Entitic vol]Platelet mean volume [Entitic volume] in Blood by Automated countLow9.5-13.5FProtestant Deaconess HospitalPlatelets Auto (Bld) [#/Vol]on 22-86-4628Lazwabvxx (Bld) [#/Vol]Platelets [#/volume] in Blood by Automated mimkg775-753LwznkpsilKettering HealthProthrombin time (PT)on 76-59-9345AU Coag (PPP) [Time]Prothrombin time (PT)9.0-11.6FProtestant Deaconess HospitalRBC Auto (Bld) [#/Vol]on 84-06-2415MEI (Bld) [#/Vol]Erythrocytes [#/volume] in Blood by Automated countLow4.70-6.10OhioHealth Southeastern Medical Centererum or plasma albumin/globulin mass ratioon 21-94-8440Kxmrqoh/Globulin [Mass ratio]Serum or plasma albumin/globulin mass ratioOhioHealth Southeastern Medical Centererum or plasma anion gap determinationon 06-10-5665Xnxtl gap [Moles/Vol]Serum or plasma anion gap determinationKettering HealthBasophils Auto (Bld) [#/Vol]on 92-61-3001Bwctqevcy (Bld) [#/Vol]Automated basophil count0.0-0.1FProtestant Deaconess HospitalBasophils/100 WBC Auto (Bld)on 79-35-0434Xtjwywvgn/100 WBC (Bld)Automated basophil %0.2-2.0[facility] HealthCholesterol in LDL Calc [Mass/Vol]on 12-30-2023 Cholesterol in LDL [Mass/Vol]Cholesterol in LDL [Mass/volume] in Serum or Plasma by calculationKettering HealthComment on above:<100 mg/dl [id number] mg/dl NEAR OR ABOVE DQMAFIR038-014 mg/dl BORDERLINE FLRM348-860 mg/dl HIGH>190 mg/dl VERY HIGHCholesterol in VLDL Calc [Mass/Vol]on 12-30-2023 Cholesterol in VLDL [Mass/Vol]Cholesterol in VLDL [Mass/volume] in Serum or Plasma by calculationKettering HealthEosinophils/100 WBC Auto (Bld)on 03-58-8735Rkcovqqlftm/100 WBC (Bld)Automated eosinophil %0.9-7.0 [facility] HealthErythrocyte distribution width Auto (RBC) [Ratio]on 32-28-5075Rxtcrruzohg distribution width (RBC) [Ratio]Erythrocyte distribution width [Ratio] by Automated count11.0-15.0[facility]tering HealthEstimated glomerular filtration rate (GFR) non- Americanon 96-35-3551SZM/1.73 sq M.predicted among non-blacks MDRD (S/P/Bld) [Vol rate/Area]Estimated glomerular filtration rate (GFR) non- AmericanLow>=60 mL/min/1.73m 2FProtestant Deaconess HospitalGlobulin Calc (S) [Mass/Vol]on 83-21-8802Mpusnxky (S) [Mass/Vol]Serum globulin measurement by calculation (mass/volume)[facility] HealthGlucose mean value [Mass/volume] in Blood Estimated from glycated hemoglobinon 73-51-7314Xmbsnyd glucose Estimated from glycated hemoglobin (Bld) [Mass/Vol]Glucose mean value [Mass/volume] in Blood Estimated from glycated hemoglobinKettering HealthHematocrit Auto (Bld) [Volume fraction]on 66-56-4159Yzdscuqdnd (Bld) [Volume fraction]Hematocrit [Volume Fraction] of Blood by Automated count Low42.0-54.0[facility] HealthHemoglobin [Mass/volume] in Bloodon 15-31-4608Tesuecspvw (Bld) [Mass/Vol]Hemoglobin [Mass/volume] in Blood14.0-18.0 [facility] HealthLaboratory - Chemistry and Chemistry - challengeon 72-47-6108Qkvztrl [Mass/Vol]3.6 g/dL3.4-5.0[facility] HealthALP [Catalytic activity/Vol]58 U/M40-742HayqsvcmvKettering HealthALT [Catalytic activity/Vol]28 U/Z62-18AuxybbxvkKettering Health AST [Catalytic activity/Vol]21 U/D20-54BwvquhrowKettering Health Bilirubin [Mass/Vol]0.7 mg/dL0.2-1.0[facility] HealthCalcium [Mass/Vol]8.8 mg/dL8.5-10.1FProtestant Deaconess HospitalChloride [Moles/Vol] 102 mmol/W77-279OraxnlgdvKettering HealthCholesterol [Mass/Vol]168 mg/dL <=200[facility] HealthCholesterol in HDL [Mass/Vol]55 mg/dL40-60 [facility] HealthComment on above:> or =60 mg/dl - LOW CARDIOVASCULAR RISK<40 mg/dl - HIGH CARDIOVASCULAR RISKCO2 [Moles/Vol]27.5 mmol/L21.0-32.0[facility] HealthCreatinine [Mass/Vol]1.44 mg/dL High0.70-1.30[facility] HealthGFR/1.73 sq M.predicted MDRD (S/P/Bld) [Vol rate/Area]57 mL/min/{1.73_m2}Low>=60 mL/min/1.73m 2FProtestant Deaconess HospitalGlucose [Mass/Vol]101 mg/lU87-092IylgwyamsKettering HealthPotassium [Moles/Vol]4.4 mmol/L3.5-5.1FProtestant Deaconess HospitalProtein [Mass/Vol]6.7 g/dL6.4-8.2FCleveland Clinic Ak[facility] Lodi Hospitalodium [Moles/Vol]138 mmol/S562-075CruythnwfKettering HealthTriglyceride [Mass/Vol]134 mg/dL<=150K[facility] HealthUrea nitrogen [Mass/Vol]22.0 mg/dLHigh7.0-18.0[facility] HealthUrea nitrogen/Creatinine [Mass ratio]15.3 mg/mgKettering Health Laboratory - Hematology and Cell countson 13-02-9454YpG1i (Bld) [Mass fraction] 5.9 %4.5-6.2FProtestant Deaconess HospitalComment on above:ADA RECOMMENDED LIMIT 4.0 - 6.0ADA THERAPEUTIC TARGET < 7.0ACTION SUGGESTED> 7.0Immature granulocytes/100 WBC (Bld)0.5 %0.0-0.5FProtestant Deaconess Hospital Leukocytes [#/volume] corrected for nucleated erythrocytes in Blood by Automated counon 38-98-8779CQI corrected for nucl RBC Auto (Bld) [#/Vol]Leukocytes [#/volume] corrected for nucleated erythrocytes in Blood by Automated coun 4.0-11.0[facility] HealthLymphocytes Auto (Bld) [#/Vol]on 15-70-7609Knodmnfjtim (Bld) [#/Vol]Lymphocytes [#/volume] in Blood by Automated count1.2-3.8[facility] HealthLymphocytes/100 WBC Auto (Bld)on 47-43-9172Dcmagmvkqqp/100 WBC (Bld)Lymphocytes/100 leukocytes in Blood by Automated count20.5-60.0[facility] HospitalH Auto (RBC) [Entitic mass]on 09-73-6384UOY (RBC) [Entitic mass]MCH [Entitic mass] by Automated count 25.9-34.0[facility] HospitalHC Auto (RBC) [Mass/Vol]on 04-01-1147TTPC (RBC) [Mass/Vol]MCHC [Mass/volume] by Automated count29.9-35.[address] [facility] HospitalV Auto (RBC) [Entitic vol]on 30-16-0755XBQ (RBC) [Entitic vol]MCV [Entitic volume] by Automated count80.0-94.0[facility] HealthMicroalbumin [Mass/volume] in Urineon 35-34-7172Diwvaqt DL <= 20 mg/L (U) [Mass/Vol]Microalbumin [Mass/volume] in Urine<=30.0[facility] HealthMonocytes Auto (Bld) [#/Vol]on 21-54-1433Wdbylyxjx (Bld) [#/Vol]Automated blood monocyte countHigh0.3-0.8[facility] HealthMonocytes/100 WBC Auto (Bld)on 08-58-2888Kgccfvtsr/100 WBC (Bld)Automated monocyte %High1.7-12.0[facility] HealthNeutrophils Auto (Bld) [#/Vol]on 67-01-8920Ddreyknbsry (Bld) [#/Vol]Neutrophils [#/volume] in Blood by Automated count1.4-6.5FProtestant Deaconess HospitalNeutrophils/100 WBC Auto (Bld)on 45-30-1509Fkguaifdosf/100 WBC (Bld)Automated neutrophil %43.0-75.0 [facility] HealthNo Panel Informationon 18-83-6530Ocordhmxoaz # (Auto)0.2 10 3/uL0.0-0.7FProtestant Deaconess HospitalImmature Granulocyte # (Auto)0.04 10 3/uLHigh0.00-0.03[facility] HealthUrine Random Pvhxyinxqm279.28 mg/dL20.00-300.00[facility] HealthPlatelet mean volume Auto (Bld) [Entitic vol]on 83-28-9818Pdqlnydh mean volume (Bld) [Entitic vol]Platelet mean volume [Entitic volume] in Blood by Automated countLow 9.5-13.5FProtestant Deaconess HospitalPlatelets Auto (Bld) [#/Vol]on 93-81-8861Msgadduvx (Bld) [#/Vol]Platelets [#/volume] in Blood by Automated bylev747-756YhkkdlxprKettering HealthRBC Auto (Bld) [#/Vol]on 12-30-2023 RBC (Bld) [#/Vol]Erythrocytes [#/volume] in Blood by Automated countLow4.70-6.10 [facility] Centererum or plasma albumin/globulin mass ratioon 53-25-2432Gghkllj/Globulin [Mass ratio]Serum or plasma albumin/globulin mass ratioOhioHealth Southeastern Medical Centererum or plasma anion gap determinationon 79-58-1739Yddty gap [Moles/Vol]Serum or plasma anion gap determinationOhioHealth Southeastern Medical Centererum or plasma total cholesterol/high density lipoprotein (HDL) cholesterol mass zenobia 35-14-2937Kzzbquklzxd.total/Cholesterol in HDL [Mass ratio]Serum or plasma total cholesterol/high density lipoprotein (HDL) cholesterol mass ratKettering HealthComment on above:3.3 - 4.4 LOW RISK4.4 - 7.1 AVERAGE RISK7.1 - 11.0 MODERATE RISK>11.0 HIGH RISKUrine microalbumin/creatinine mass ratioon 38-41-9826Pzorpbj/Creatinine DL <= 20 mg/L (U) [Mass ratio]Urine microalbumin/creatinine mass ratio0.0-29.9[facility] HealthComment on above:NO MICROALBUMINURIA 0-29 MG/GCLINICAL MICROALBUMINURIA 30-300 MG/GMACROALBUMINURIA >300 MG/GCHEMISTRYOrdered By: SYSTEM SYSTEM on 37-65-9731IRA [Mass/Vol]0.2 mg/dLNormal<=1.9mg/dLRemisol Chem CRPon 44-50-4185ESC [Mass/Vol]0.2 mg/dLNormal<=1.9[facility] Comment on above:Performed By: #### [id number] #### [facility] [address] [place], [place] [address]SJCE PLATELET COUNTon 63-31-3955Uoeiiecvi (Bld) [#/Vol]239.0 10*3/[facility] HealthcareOriginal Ordering Provider: DO Sterling Chandler NOMS HealthcareHEMATOLOGYOrdered By: Nat Aldridge on 49-33-3420KGO (Bld) [Velocity]4 mm/hNormal0 - 19 mm/[facility] HemeAutoSSHEMATOLOGYOrdered By: SYSTEM SYSTEM on 11-90-3559Wmneicxl851.0 E9/BNwymtt890.0 - 500.0 E9/LRemisol Heme Ophthalmic OCT panelon 84-27-7377WINTSaint Luke[facility] Eye Images reviewed and comparison made to baseline, Images reviewed. To assess optic nerve function and for use in future follow-up. Reliability: good and adequate. Left Eye Images reviewed and comparison made to baseline, Images reviewed. To assess optic nerve function and for use in future follow-up. Reliability: good and adequate. 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[facility] HealthcareRadiology Study observation (narrative)[facility] Optical coherence tomography study reporton 69-65-5579DTEXAtrium Health Kings MountainRadiology Study observation (narrative)[facility] HealthcarePlatelet Counton 02-56-3860Iktipmjm692.0 E9/UJmswub225.0-500.0[facility] Medical CenterComment on above:Performed By: #### [id number] #### [facility] [address] [place], [place] [address]Uvy Rate Automatedon 45-79-7859MAW (Bld) [Velocity]4 mm/hNormal 0-19[facility] Medical CenterComment on above:Performed By: #### [id number] #### [facility] [address] [place], [place] [address]Jiqbnlx mean value [Mass/volume] in Blood Estimated from glycated hemoglobinon 39-06-7405Wucaweu glucose Estimated from glycated hemoglobin (Bld) [Mass/Vol]137 mg/dLKettering HealthComment on above:eAG: (Estimated average glucose) is a calculated value from HgbA1c and is employee relations representative of the average blood glucose level in the last 2-3 month period. Laboratory - Hematology and Cell countson 97-32-6844ByY9k (Bld) [Mass fraction] 6.4 %High4.3-5.6FProtestant Deaconess HospitalComment on above:[place] [employer] guidelines indicate that patients with HgbA1c in the range 5.7-6.4% are at increased risk for development of diabetes, and intervention by lifestyle modification may be beneficial. HgbA1c greater or equal to 6.5% is considered diagnostic of diabetes.UrinalysisOrdered By: Leticia Milian on 62-93-2369Jvxehggurt complete panel (U)[facility] HealthUrine culture routineOrdered By: Leticia Milian on 46-47-3752Wrhunutx identified Cx Nom (U)[facility] HealthBasophils Auto (Bld) [#/Vol]on 07-22-2023 Basophils (Bld) [#/Vol]0.0 10 3/uL0.0-0.1FProtestant Deaconess Hospital Basophils/100 WBC Auto (Bld)on 58-52-0043Eaunkrtyh/100 WBC (Bld)0.5 %0.2-2.0 [facility] HealthEosinophils/100 WBC Auto (Bld)on 07-22-2023 Eosinophils/100 WBC (Bld)2.7 %0.9-7.0[facility] Erythrocyte distribution width Auto (RBC) [Ratio]on 92-77-8154Quzeedltsyh distribution width (RBC) [Ratio]12.2 %11.0-15.0[facility] Estimated glomerular filtration rate (GFR) non- Americanon 07-22-2023 GFR/1.73 sq M.predicted among non-blacks MDRD (S/P/Bld) [Vol rate/Area]49 mL/min/{1.73_m2}Low>=60[facility] HealthHematocrit Auto (Bld) [Volume fraction]on 77-56-2087Akzlfznkmk (Bld) [Volume fraction]37.8 %Low 42.0-54.0[facility] HealthHemoglobin [Mass/volume] in Bloodon 82-59-4883Rbesnuaswk (Bld) [Mass/Vol]12.6 g/dLLow14.0-18.0[facility] HealthLaboratory - Chemistry and Chemistry - challengeon 07-22-2023 Calcium [Mass/Vol]9.0 mg/dL8.5-10.1FProtestant Deaconess HospitalChloride [Moles/Vol]98 mmol/E41-876FagnhhugwKettering HealthCO2 [Moles/Vol]27.0 mmol/L21.0-32.0[facility] HealthCreatinine [Mass/Vol]1.39 mg/dL High0.70-1.30[facility] HealthGFR/1.73 sq M.predicted MDRD (S/P/Bld) [Vol rate/Area]59 mL/min/{1.73_m2}Low>=60[facility] HealthGlucose [Mass/Vol]120 mg/lKHqux03-279ZqjltfstbKettering Health Potassium [Moles/Vol]4.9 mmol/L3.5-5.1FCleveland Clinic Akron General Lodi Hospitalodium [Moles/Vol]135 mmol/AAdz299-713CutopodgrKettering HealthUrea nitrogen [Mass/Vol]23.0 mg/dLHigh7.0-18.0[facility] HealthUrea nitrogen/Creatinine [Mass ratio]16.5 mg/mgKettering Health Laboratory - Hematology and Cell countson 98-19-6730Jbsiobny granulocytes/100 WBC (Bld)0.5 %0.0-0.5FProtestant Deaconess HospitalLeukocytes [#/volume] corrected for nucleated erythrocytes in Blood by Automated counon 58-02-7528JZK corrected for nucl RBC Auto (Bld) [#/Vol]8.1 10 3/uL4.0-11.0[facility] HealthLymphocytes Auto (Bld) [#/Vol]on 27-63-7004Qeldsicmwbs (Bld) [#/Vol]2.3 10 3/uL1.2-3.8[facility] HealthLymphocytes/100 WBC Auto (Bld)on 97-40-7074Yxdqmmknnzv/100 WBC (Bld)28.3 %20.5-60.0[facility] HospitalH Auto (RBC) [Entitic mass]on 92-25-7261PSO (RBC) [Entitic mass]30.7 pg25.9-34.0[facility] HealthMCHC Auto (RBC) [Mass/Vol]on 75-75-1870FEBL (RBC) [Mass/Vol]33.3 g/dL29.9-35.2FProtestant Deaconess HospitalMCV Auto (RBC) [Entitic vol]on 91-17-0527LTR (RBC) [Entitic vol] 92.0 fL80.0-94.0[facility] HealthMonocytes Auto (Bld) [#/Vol]on 77-53-2991Shaavmtlq (Bld) [#/Vol]1.1 10 3/uLHigh0.3-0.8[facility] HealthMonocytes/100 WBC Auto (Bld)on 10-90-0746Pugkbpgbf/100 WBC (Bld) 13.7 %High1.7-12.0[facility] HealthNeutrophils Auto (Bld) [#/Vol]on 15-47-2287Wpcsdwudqjm (Bld) [#/Vol]4.4 10 3/uL1.4-6.5FProtestant Deaconess HospitalNeutrophils/100 WBC Auto (Bld)on 07-22-2023 Neutrophils/100 WBC (Bld)54.3 %43.0-75.0[facility] HealthNo Panel Informationon 87-44-7959Memzpdtnsoj # (Auto)0.2 10 3/uL0.0-0.7FProtestant Deaconess HospitalImmature Granulocyte # (Auto)0.04 10 3/uLHigh0.00-0.03 [facility] HealthPlatelet mean volume Auto (Bld) [Entitic vol]on 50-59-6970Wzsechhv mean volume (Bld) [Entitic vol]8.2 fLLow9.5-13.5FProtestant Deaconess HospitalPlatelets Auto (Bld) [#/Vol]on 84-05-3277Lrutbdynz (Bld) [#/Vol]268 10 3/sU971-516IpmhfuqdcKettering HealthRBC Auto (Bld) [#/Vol] on 61-23-0621KES (Bld) [#/Vol]4.11 10 6/uLLow4.70-6.10[facility] Medical Centererum or plasma anion gap determinationon 93-33-1111Wrahq gap [Moles/Vol] 14.9 mmol/LFProtestant Deaconess HospitalBasophils Auto (Bld) [#/Vol]on 30-51-5719Jdwdbfgjw (Bld) [#/Vol]0.0 10 3/uL0.0-0.1FProtestant Deaconess HospitalBasophils/100 WBC Auto (Bld)on 81-64-0425Emibbygya/100 WBC (Bld)0.4 % 0.2-2.0[facility] HealthEosinophils/100 WBC Auto (Bld)on 44-58-9600Ighqfbmmuqw/100 WBC (Bld)2.3 %0.9-7.0[facility] Erythrocyte distribution width Auto (RBC) [Ratio]on 58-81-4823Jujrggytxnr distribution width (RBC) [Ratio]12.4 %11.0-15.0[facility] Estimated glomerular filtration rate (GFR) non- Americanon 07-06-2023 GFR/1.73 sq M.predicted among non-blacks MDRD (S/P/Bld) [Vol rate/Area]59 mL/min/{1.73_m2}Low>=60[facility] HealthHematocrit Auto (Bld) [Volume fraction]on 75-14-5938Qbjcvedlqi (Bld) [Volume fraction]37.5 %Low 42.0-54.0[facility] HealthHemoglobin [Mass/volume] in Bloodon 10-20-0010Eskvycmxrq (Bld) [Mass/Vol]12.5 g/dLLow14.0-18.0[facility] HealthLaboratory - Chemistry and Chemistry - challengeon 07-06-2023 Calcium [Mass/Vol]9.0 mg/dL8.5-10.1FProtestant Deaconess HospitalChloride [Moles/Vol]98 mmol/E50-136KjbetjqgaKettering HealthCO2 [Moles/Vol]27.6 mmol/L21.0-32.0[facility] HealthCreatinine [Mass/Vol]1.17 mg/dL 0.70-1.30[facility] HealthGFR/1.73 sq M.predicted MDRD (S/P/Bld) [Vol rate/Area]mL/min/{1.73_m2}>=60[facility] HealthGlucose [Mass/Vol]109 mg/fPBwll86-470SzkhjfzfyKettering HealthPotassium [Moles/Vol]5.1 mmol/L3.5-5.1FCleveland Clinic Akron General Lodi Hospitalodium [Moles/Vol] 134 mmol/MNnw265-691QoxtfwixkKettering HealthUrea nitrogen [Mass/Vol] 23.0 mg/dLHigh7.0-18.0[facility] HealthUrea nitrogen/Creatinine [Mass ratio]19.7 mg/mgKettering HealthLaboratory - Hematology and Cell countson 87-65-4881Dmybfhxg granulocytes/100 WBC (Bld)0.4 %0.0-0.5 [facility] HealthLeukocytes [#/volume] corrected for nucleated erythrocytes in Blood by Automated counon 12-57-4660IUM corrected for nucl RBC Auto (Bld) [#/Vol]8.0 10 3/uL4.0-11.0[facility] Lymphocytes Auto (Bld) [#/Vol]on 68-03-0951Cmpnygpmswi (Bld) [#/Vol]1.8 10 3/uL 1.2-3.8[facility] HealthLymphocytes/100 WBC Auto (Bld)on 20-71-7162Yrjtjyzyevd/100 WBC (Bld)22.3 %20.5-60.0[facility] HealthMCH Auto (RBC) [Entitic mass]on 12-18-2248NMF (RBC) [Entitic mass]30.7 pg 25.9-34.0[facility] HealthMCHC Auto (RBC) [Mass/Vol]on 96-46-1856RXWT (RBC) [Mass/Vol]33.3 g/dL29.9-35.2FProtestant Deaconess HospitalMCV Auto (RBC) [Entitic vol]on 92-83-3008XMZ (RBC) [Entitic vol]92.1 fL 80.0-94.0[facility] HealthMonocytes Auto (Bld) [#/Vol]on 21-10-2205Sauyimcnw (Bld) [#/Vol]1.2 10 3/uLHigh0.3-0.8[facility] HealthMonocytes/100 WBC Auto (Bld)on 89-33-7614Wdhnyrell/100 WBC (Bld) 15.0 %High1.7-12.0[facility] HealthNeutrophils Auto (Bld) [#/Vol]on 33-86-1962Qjvncrdkkac (Bld) [#/Vol]4.8 10 3/uL1.4-6.5FProtestant Deaconess HospitalNeutrophils/100 WBC Auto (Bld)on 07-06-2023 Neutrophils/100 WBC (Bld)59.6 %43.0-75.0[facility] HealthNo Panel Informationon 72-56-8074Chyjaflokey # (Auto)0.2 10 3/uL0.0-0.7FProtestant Deaconess HospitalImmature Granulocyte # (Auto)0.03 10 3/uL0.00-0.03 [facility] HealthPlatelet mean volume Auto (Bld) [Entitic vol]on 17-86-7198Qpcyirmr mean volume (Bld) [Entitic vol]8.9 fLLow9.5-13.5FProtestant Deaconess HospitalPlatelets Auto (Bld) [#/Vol]on 56-61-1700Zxauwhoqy (Bld) [#/Vol]242 10 3/nJ125-800QtulnchcvKettering HealthRBC Auto (Bld) [#/Vol] on 03-19-9419XZN (Bld) [#/Vol]4.07 10 6/uLLow4.70-6.10[facility] Medical Centererum or plasma anion gap determinationon 23-26-8346Icapw gap [Moles/Vol] 13.5 mmol/[facility] HospitalEstimated glomerular filtration rate (GFR) non- Americanon 75-36-7204ROD/1.73 sq M.predicted among non-blacks MDRD (S/P/Bld) [Vol rate/Area]mL/min/{1.73_m2}>=60[facility] HealthLaboratory - Chemistry and Chemistry - challengeon 04-07-4024Oonogdo [Mass/Vol]8.5 mg/dL8.5-10.1FProtestant Deaconess HospitalChloride [Moles/Vol] 100 mmol/Z79-458WmtjuquhyKettering HealthCO2 [Moles/Vol]27.6 mmol/L 21.0-32.0[facility] HealthCreatinine [Mass/Vol]1.06 mg/dL 0.70-1.30[facility] HealthGFR/1.73 sq M.predicted MDRD (S/P/Bld) [Vol rate/Area]mL/min/{1.73_m2}>=60[facility] HealthGlucose [Mass/Vol]135 mg/pM22-596AjxdqdlolKettering HealthPotassium [Moles/Vol] 4.1 mmol/L3.5-5.1FCleveland [facility]odi Hospitalodium [Moles/Vol]136 mmol/L 136-145K[facility] HealthUrea nitrogen [Mass/Vol]19.0 mg/dL 7.0-18.0[facility] HealthUrea nitrogen/Creatinine [Mass ratio] 17.9 mg/mgKettering HealthNo Panel Informationon 10-02-9758A- Reactive Protein, Quantitative<0.50 mg/dL<=0.50[facility] Serum or plasma anion gap determinationon 24-89-5657Bdnij gap [Moles/Vol]12.5 mmol/[facility] HospitalEstimated glomerular filtration rate (GFR) non- Americanon 82-63-0010MNI/1.73 sq M.predicted among non-blacks MDRD (S/P/Bld) [Vol rate/Area]mL/min/{1.73_m2}>=60[facility] HealthLaboratory - Chemistry and Chemistry - challengeon 31-86-2646Qkjdofh [Mass/Vol]8.7 mg/dL8.5-10.1FProtestant Deaconess HospitalChloride [Moles/Vol] 101 mmol/P57-745GxwxsbkmtKettering HealthCO2 [Moles/Vol]29.2 mmol/L 21.0-32.0[facility] HealthCreatinine [Mass/Vol]1.06 mg/dL 0.70-1.30[facility] HealthGFR/1.73 sq M.predicted MDRD (S/P/Bld) [Vol rate/Area]mL/min/{1.73_m2}>=60[facility] HealthGlucose [Mass/Vol]93 mg/qM32-684VxmpkudikKettering HealthPotassium [Moles/Vol] 4.6 mmol/L3.5-5.1FCleveland Clinic Ak[facility] Lodi Hospitalodium [Moles/Vol]136 mmol/L 136-145K[facility] HealthUrea nitrogen [Mass/Vol]20.0 mg/dL 7.0-18.0[facility] HealthUrea nitrogen/Creatinine [Mass ratio] 18.9 mg/mgKettering HealthNo Panel Informationon 90-09-9988F- Reactive Protein, Quantitative0.50 mg/dL<=0.50[facility] Vancomycin Level Yasrwm52.0 ug/mL5.0-20.0[facility] Medical Centererum or plasma anion gap determinationon 25-36-7951Wrfmb gap [Moles/Vol]10.4 mmol/L [facility] HealthGLYCOHEMOGLOBIN A1Con 10-24-7802AUG RECOMMENDATIONSEE BELOWMercy Health St. Charles HospitalComment on above:Result Comment: ADA RECOMMENDED LIMIT 4.0 - 6.0 ADA THERAPEUTIC TARGET < 7.0 ACTION SUGGESTED > 7.0Performed By: #### A1C #### [facility] [address] [place], [place] [address] Dr. Juan Pablo KaminskiGlucose [Mass/Vol]128 mg/dLMercy Health St. Charles HospitalComment on above:Performed By: #### A1C #### [facility] [address] [address] [address] Juan Pablo KaminskiHbA1c (Bld) [Mass fraction]6.1 %Normal4.5-6.2The [facility] HospitalComment on above:Performed By: #### A1C #### [facility] [address] [place] [address] Dr. Juan Pablo KaminskiA1C with Estimated Average Gluon 17-54-0494P3V with Estimated Average Bla904Bjxps [place] [employer] Other A1C with Estimated Average GluNparkland health center [employer] [employer] Other HbA1c (Bld) [Mass fraction]6.1 %Normal4.5-6.2Nparkland health center [employer] Other Comment on above:Performed By: #### A1C #### [facility] [address] [place] [address] Dr. Juan Pablo KaminskiGLYCOHEMOGLOBIN A1Con 59-95-3225UCJ RECOMMENDATIONSEE BELOWNormal The [facility] HospitalComment on above:Result Comment: ADA RECOMMENDED LIMIT 4.0 - 6.0 ADA THERAPEUTIC TARGET < 7.0 ACTION SUGGESTED > 7.0Performed By: #### A1C #### [facility] [address] [place] [address] Dr. Juan Pablo KaminskiGlucose [Mass/Vol]128 mg/dLNoCincinnati Shriners HospitalComment on above:Performed By: #### A1C #### [facility] [address] [place] [address] Dr. Juan Pablo KaminskiUS SCROTUM W VASCULAR ORGANon 79-57-5139GX SCROTUM W VASCULAR ORGANINDICATION: Pain in testicle EXAMINATION: Ultrasound US SCROTUM [...] Electronically authenticated by: LEIDY PEREIRA Date: 2021-12-25 18:32[facility] Charles HospitalUrine culture routineOrdered By: Sam Simons on 12-19-2021 Bacteria identified Cx Nom (U)Pseudomonas aeruginosaKettering HealthAutomated erythrocytes count in urine sediment (number/area)Ordered By: Sam Simons on 23-87-4155OQH Auto (Urine sed) [#/Area]1-2 [HPF]0-4FProtestant Deaconess HospitalAutomated leukocytes count in urine sediment (number/area)Ordered By: Sam Simons on 19-53-4028WXA Auto (Urine sed) [#/Area]20-49 [HPF]0-4FProtestant Deaconess HospitalBilirubin Test strip Ql (U)Ordered By: Sam Simons on 85-15-5927Lynjfleaq Ql (U)NegativeNegative [facility] HealthColor Auto (U)Ordered By: Sam Simons on 87-22-7429Ejozr (U)YellowYellowKettering HealthKetones Auto test strip (U) [Mass/Vol]Ordered By: Sam Simons on 69-83-2665Amilhsc (U) [Mass/Vol]NegativeNegClinton Memorial HospitalLaboratory - UrinalysisOrdered By: Sam Simons on 36-90-0178Rsavyrv casts LM Ql (Urine sed) 0-8 [LPF]0-8[facility] HealthNitrite Test strip Ql (U)Ordered By: Sam Simons on 06-94-9395Vmokisz Ql (U)NegativeNegClinton Memorial HospitalProtein Auto test strip (U) [Mass/Vol]Ordered By: Sam Simons on 19-66-6604Rzvobmg (U) [Mass/Vol]NegativeNegBerger Hospitalpecific gravity Auto test strip (U) [Rel density]Ordered By: Sam Simons on 28-06-0179Mfufzmao gravity (U) [Rel density]1.0161.001-1.030[facility] Medical Centerquamous epithelial cells detection in urine sediment by light microscopyOrdered By: Sam Simons on 12-66-9619Qbkynwlzwe cells.squamous LM Ql (Urine sed)0-1 [HPF]0-2FProtestant Deaconess HospitalUrine bacteria detection by automated methodOrdered By: Sam Simons on 30-10-9510Omdnuqfl Auto Ql (U)None seenNone SeenKettering HealthUrine clarity by refractometry automatedOrdered By: Sam Simons on 51-10-4857Mehkgwn Refractometry automated (U)ClearCleUniversity Hospitals Cleveland Medical CenterUrine glucose measurement by automated test strip (mass/volume)Ordered By: Sam Simons on 53-30-9793Fowwcvm Auto test strip (U) [Mass/Vol]Normal mg/dLNormal [facility] HealthUrine hemoglobin detection by automated test stripOrdered By: Sam Simons on 26-38-8228Hrpftletdr Auto test strip Ql (U) NegativeNegClinton Memorial HospitalUrine leukocyte esterase detection by automated test stripOrdered By: Sam Simons on 12-17-2021 Leukocyte esterase Auto test strip Ql (U)4+NegativeKettering HealthUrobilinogen Auto test strip (U) [Mass/Vol]Ordered By: Sam Simons on 29-66-6844Httmtynurogb (U) [Mass/Vol]Normal mg/dLNormalKettering HealthpH Auto test strip (U)Ordered By: Sam Simons on 79-19-4785pV (U)6.0 [pH]5.0-9.0[facility] HealthUrine culture routineOrdered By: Davis Cervantes on 55-26-8349Uqgnniuc identified Cx Nom (U)No Growth 2 Days [facility] HealthAutomated erythrocytes count in urine sediment (number/area)Ordered By: Davis Cervantes on 21-62-8490WYW Auto (Urine sed) [#/Area] 20-49 [HPF]0-4FProtestant Deaconess HospitalAutomated leukocytes count in urine sediment (number/area)Ordered By: Davis Cervantes on 34-98-2229DTV Auto (Urine sed) [#/Area]10-19 [HPF]0-4FProtestant Deaconess HospitalBasophils Auto (Bld) [#/Vol]Ordered By: Davis Cervantes on 83-68-4698Cjzdzkrfe (Bld) [#/Vol]0.1 10*3/uL 0.0-0.2FProtestant Deaconess HospitalBasophils/100 WBC Auto (Bld)Ordered By: Davis Cervantes on 44-46-4740Iigqefvvh/100 WBC (Bld)1.2 %.[facility] HealthBilirubin Test strip Ql (U)Ordered By: Davis Cervantes on 26-31-0506Oubvnkijs Ql (U)NegativeNegativeKettering HealthBlood hemoglobin measurement (mass/volume)Ordered By: Davis Cervantes on 46-64-0540Udrahzdpdc (Bld) [Mass/Vol]13.3 g/dL13.0-17.0[facility] HealthBlood leukocytes automated count (number/volume)Ordered By: Davis Cervantes on 79-77-8603XBF (Bld) [#/Vol]8.2 10*3/uL4.5-11.0[facility] HealthColor Auto (U)Ordered By: Davis Cervantes on 26-77-2329Ykllb (U)YellowYellowKettering HealthCreatinine and Glomerular filtration rate.predicted panel (S/P/Bld)Ordered By: Davis Cervantes on 78-23-1155Nkqfftkmrw [Mass/Vol]1.16 mg/dL0.64-1.27[facility] HealthEosinophils Auto (Bld) [#/Vol]Ordered By: Davis Cervantes on 39-36-5322Azjanddczlt (Bld) [#/Vol]0.2 10*3/uL0.0-0.45[facility] HealthEosinophils/100 WBC Auto (Bld)Ordered By: Davis Cervantes on 12-11-2021 Eosinophils/100 WBC (Bld)2.9 %.[facility] HealthErythrocyte distribution width Auto (RBC) [Ratio]Ordered By: Davis Cervantes on 12-11-2021 Erythrocyte distribution width (RBC) [Ratio]11.8 %12.0-14.8[facility] HealthEstimated glomerular filtration rate (GFR) non- Ordered By: Davis Cervantes on 36-89-7533GCN/1.73 sq M.predicted among non-blacks MDRD (S/P/Bld) [Vol rate/Area]60 mL/MinKettering Health Hematocrit Auto (Bld) [Volume fraction]Ordered By: Davis Cervantes on 12-11-2021 Hematocrit (Bld) [Volume fraction]39.6 %38.8-50.0[facility]tering HealthKetones Auto test strip (U) [Mass/Vol]Ordered By: Davis Cervantes on 12-11-2021 Ketones (U) [Mass/Vol]NegativeNegativeKettering Health Laboratory - Hematology and Cell countsOrdered By: Davis Cervantes on 12-11-2021 Nucleated RBC/100 WBC (Bld) [Ratio]0.0 %0-0.5FProtestant Deaconess Hospital Laboratory - UrinalysisOrdered By: Davis Cervantes on 91-30-7963Ioffygq casts LM Ql (Urine sed)0-8 [LPF]0-8[facility] HealthLymphocytes Auto (Bld) [#/Vol]Ordered By: Davis Cervantes on 68-30-1688Fkwaprujxiu (Bld) [#/Vol]1.9 10*3/uL 1.00-4.8[facility] HealthLymphocytes/100 WBC Auto (Bld)Ordered By: Davis Cervantes on 54-10-9889Bwegdznmxoc/100 WBC (Bld)23.3 %.[facility] HealthMCH Auto (RBC) [Entitic mass]Ordered By: Davis Cervantes on 12-11-2021 MCH (RBC) [Entitic mass]32.0 pg27.5-35.2FProtestant Deaconess HospitalMCHC Auto (RBC) [Mass/Vol]Ordered By: Davis Cervantes on 43-29-0746CZYY (RBC) [Mass/Vol] 33.6 g/dL32.5-35.6FProtestant Deaconess HospitalMCV Auto (RBC) [Entitic vol] Ordered By: Davis Cervantes on 27-25-6850JUI (RBC) [Entitic vol]95.1 fL83.5-101 [facility] HealthMonocytes Auto (Bld) [#/Vol]Ordered By: Davis Cervantes on 90-99-8549Kjqrixusb (Bld) [#/Vol]1.1 10*3/uL0.0-0.8[facility] HealthMonocytes/100 WBC Auto (Bld)Ordered By: Davis Cervantes on 12-11-2021 Monocytes/100 WBC (Bld)13.6 %.[facility] HealthNeutrophils Auto (Bld) [#/Vol]Ordered By: Davis Cervantes on 09-26-4390Ofrkggrrubp (Bld) [#/Vol]4.8 10*3/uL1.8-7.7FProtestant Deaconess HospitalNeutrophils/100 WBC Auto (Bld) Ordered By: Davis Cervantes on 61-20-3804Bwlwwleuhqj/100 WBC (Bld)59.0 %.[facility] HealthNitrite Test strip Ql (U)Ordered By: Davis Cervantes on 53-78-5443Zgfkmmb Ql (U)NegativeNegativeKettering HealthNo Panel InformationOrdered By: Davis Cervantes on 76-35-7194Xoqpaoetk GFR ()> 60 mL/MinKettering HealthComment on above:GFR estimated reference range: According to KDOQI guidelines, <60 ml/min/1.73m2 is sufficient todiagnose a patient with chronic kidney disease.Pharmacy Creatinine Clearance (Chem57.67[facility] HealthPlatelet mean volume Auto (Bld) [Entitic vol]Ordered By: Davis Cervantes on 59-29-7632Lxtaxrka mean volume (Bld) [Entitic vol]7.0 fL6.6-10.1FProtestant Deaconess HospitalPlatelets Auto (Bld) [#/Vol]Ordered By: Davis Cervantes on 56-53-0883Ctutgmnjf (Bld) [#/Vol]266 10*3/qH711-174GpfprryeoKettering HealthProtein Auto test strip (U) [Mass/Vol]Ordered By: Davis Cervantes on 06-91-1465Ywahrld (U) [Mass/Vol]Negative NegativeKettering HealthRBC Auto (Bld) [#/Vol]Ordered By: Davis Cervantes on 83-66-7692SIV (Bld) [#/Vol]4.17 10*6/uL3.90-5.60[facility] Medical Centererum or plasma anion gap determinationOrdered By: Davis Cervantes on 74-12-8687Prenr gap [Moles/Vol]12.2 mmol/L6.0-15.0[facility] Medical Centererum or plasma calcium measurement (mass/volume)Ordered By: Davis Cervantes on 48-84-5634Blcxlfb [Mass/Vol]9.0 mg/dL8.2-10.2FProtestant Deaconess Hospital Serum or plasma chloride measurement (moles/volume)Ordered By: Davis Cervantes on 78-91-4383Gvjcqemm [Moles/Vol]96 mmol/K25-523WyszgqzvtKettering Health Serum or plasma glucose measurement (mass/volume)Ordered By: Davis Cervantes on 19-76-7339Omddpho [Mass/Vol]131 mg/yH85-272KxifdlprqKettering Health Comment on above:ADA recommended reference rangeRandom Glucose Reference Range is dependent on time and content of last meal. Glucose of more than 200 mg/dL in a nonstressed, ambulatory subject supports the diagnosisof Diabetes Mellitus. Serum or plasma potassium measurement (moles/volume)Ordered By: Davis Cervantes on 07-36-2461Cnxnsumdz [Moles/Vol]4.5 mmol/L3.5-5.1FCleveland Clinic Akron General Lodi Hospitalerum or plasma sodium measurement (moles/volume)Ordered By: Davis Cervantes on 16-28-8954Mapkts [Moles/Vol]131 mmol/G854-476LyacrsawnKettering Health Serum or plasma total carbon dioxide measurement (moles/volume)Ordered By: Davis Cervantes on 59-25-3505UZ8 [Moles/Vol]27.3 mmol/L22.0-30.0[facility] Centererum or plasma urea nitrogen measurement (mass/volume)Ordered By: Davis Cervantes on 98-91-6814Kxdv nitrogen [Mass/Vol]20 mg/dL9-23[facility] Medical Centerpecific gravity Auto test strip (U) [Rel density]Ordered By: Davis Cervantes on 47-65-1762Kxplqwtd gravity (U) [Rel density]1.0141.001-1.030[facility] Medical Centerquamous epithelial cells detection in urine sediment by light microscopyOrdered By: Davis Cervantes on 29-31-8407Jqxeraujqd cells.squamous LM Ql (Urine sed)0-1 [HPF]0-2FProtestant Deaconess HospitalUrine bacteria detection by automated methodOrdered By: Davis Cervantes on 79-66-6398Lejjiyal Auto Ql (U)None seenNone SeenKettering HealthUrine clarity by refractometry automatedOrdered By: Davis Cervantes on 31-66-9739Vmrlmmp Refractometry automated (U)ClearCleUniversity Hospitals Cleveland Medical CenterUrine glucose measurement by automated test strip (mass/volume)Ordered By: Davis Cervantes on 12-27-4897Opxcfyc Auto test strip (U) [Mass/Vol]Normal mg/dLTrinity Health System Twin City Medical CenterUrine hemoglobin detection by automated test stripOrdered By: Davis Cervantes on 67-63-4894Exzbbhjgkk Auto test strip Ql (U)2+Negative [facility] HealthUrine leukocyte esterase detection by automated test stripOrdered By: Davis Cervantes on 05-18-5185Tkwgyljhw esterase Auto test strip Ql (U)2+NegativeKettering HealthUrobilinogen Auto test strip (U) [Mass/Vol]Ordered By: Davis Cervantes on 87-60-3015Apadyxtjzrab (U) [Mass/Vol]Normal mg/dLNoThe Jewish HospitalpH Auto test strip (U)Ordered By: Davis Cervantes on 87-81-3601cO (U)5.5 [pH]5.0-9.0[facility] NOTEon 50-14-7634MQ NOTEHNO ID: [id number] Author: Alyx Vergara RN Service: Nursing Author Type: Registered Nurse Type: ED Notes Filed: 11/26/2021 10:21 PM Note Text: Discharge instructions and follow up appointments reviewed. Pt verbalized understanding and states no concerns or questions at this time. VSS. Spoke with Asha about elevated BP. Stated that it's okay for pt to go and have him f/u with his PCP.Normalon HospitalED NOTEHNO ID: [id number] Author: Alyx Vergara RN Service: Nursing Author Type: Registered Nurse Type: ED Notes Filed: 11/26/2021 10:10 PM Note Text: Replaced smith bag with leg bag.[facility] HospitalBacteria Ur Culton 11-26-2021 Bacteria identified Cx Nom (U)2399938YypbhltcDqtj HospitalComment on above:Order Comment: Specimen Type: URINE SPECIMEN Ordering Facility: [facility] Address: [address] [place], [place] [address]Result Comment: >=100,000 CFU/ml Klebsiella oxytocaPerformed By: #### 630-4, 23686-9 #### [facility] CLIA [id number] [address] [place] [address] [place] OF AMERICABacterial susceptibility panel (Isol)on 69-28-0489Xoamglqtua [Susc]ResistantAvon HospitalComment on above:Order Comment: Ordering Facility: [facility] Address: [address] [place], [place] [address]Performed By: #### 630-4, 96081-5 #### [facility] CLIA [id number] [address] [place] [address] [place] AMERICAAmpicillin+Sulbactam [Susc]4 SusceptibleSusceptible <=8 , Intermediate >8 , Resistant >16Avon HospitalComment on above:Order Comment: Ordering Facility: [facility] Address: [address] [place], [place] [address]Performed By: #### 630-4, 56163-8 #### [facility] CLIA [id number] [address] [place] [address] [place] AMERICAceFAZolin [Susc]<=4 SusceptibleSusceptible 0-16 , Intermediate <0 or >16 , Resistant >16Avon HospitalComment on above:Order Comment: Ordering Facility: [facility] Address: [address] [place], [place] [address]Performed By: #### 630-4, 22649-5 #### [facility] CLIA [id number] [address] [place] [address] [place] AMERICACefepime [Susc]<=1 SusceptibleSusceptible <=2 , Intermediate >2 , Resistant >=16[facility] Comment on above:Order Comment: Ordering Facility: [facility] Address: [address] [place], [place] [address]Performed By: #### 630-4, 85850-7 #### [facility] CLIA [id number] [address] [place] [address] [place] AMERICAcefTRIAXone [Susc]<=1 SusceptibleSusceptible <=1 , Intermediate >1 , Resistant >=4Avon HospitalComment on above:Order Comment: Ordering Facility: [facility] Address: [address] [place], [place] [address]Performed By: #### 630-4, 28467-6 #### [facility] CLIA [id number] [address] [place] [address] [place] AMERICACiprofloxacin [Susc]<=0.25 SusceptibleSusceptible <0.5 , Intermediate >=.5 , Resistant >=1[facility] Comment on above:Order Comment: Ordering Facility: [facility] Address: [address] [place], [place] [address]Performed By: #### 630-4, 40778-0 #### [facility] CLIA [id number] [address] [place] [address] [place] AMERICAErtapenem ROCIO [Susc]<=0.5 SusceptibleSusceptible <=0.5 , Intermediate >.5 , Resistant >1[facility] Comment on above:Order Comment: Ordering Facility: [facility] Address: [address] [place], [place] [address]Performed By: #### 630-4, 68555-5 #### [facility] CLIA [id number] [address] [place] [address] [place] AMERICAGentamicin [Susc]<=1 SusceptibleSusceptible <=4 , Intermediate >4 , Resistant >8Avon HospitalComment on above:Order Comment: Ordering Facility: [facility] Address: [address] [place], [place] [address]Performed By: #### 630-4, 88358-8 #### [facility] CLIA [id number] [address] [place] [address] [place] AMERICAMeropenem [Susc]<=0.25 SusceptibleSusceptible <=1 , Intermediate >1 , Resistant >2Avon HospitalComment on above:Order Comment: Ordering Facility: [facility] Address: [address] [place], [place] [address]Performed By: #### 630-4, 96670-6 #### [facility] CLIA [id number] [address] [place] [address] STATES OF AMERICANitrofurantoin [Susc]32 SusceptibleSusceptible <=32 , Intermediate >32 , Resistant >64[facility] Comment on above:Order Comment: Ordering Facility: [facility] Address: [address] [place], [place] [address]Performed By: #### 630-4, 65454-8 #### [facility] CLIA [id number] [address] [place] [address] [place] AMERICAPiperacillin+Sulbactam ROCIO [Susc]<=4SusceptibleSusceptible <=16 , Intermediate >16 , Resistant >64Avon HospitalComment on above:Order Comment: Ordering Facility: [facility] Address: [address] [place], [place] [address]Performed By: #### 630-4, 86591-6 #### [facility] CLIA [id number] [address] [place] [address] OF [facility] HOSPITALTobramycin [Susc]<=1 SusceptibleSusceptible <=4 , Intermediate >4 , Resistant >8Avon HospitalComment on above:Order Comment: Ordering Facility: [facility] Address: [address] [place], [place] [address]Performed By: #### 630-4, 33079-1 #### [facility] CLIA [id number] [address] [place] [address] [place] Trimethoprim+Sulfamethoxazole [Susc]<=20SusceptibleSusceptible <=40 , Resistant >40Avon HospitalComment on above:Order Comment: Ordering Facility: [facility] Address: [address] [place], [place] [address]Performed By: #### 630-4, 24558-3 #### [facility] CLIA [id number] [address] [place] [address] STATES OF AMERICAED NOTEon 67-57-3025NC NOTE HNO ID: [id number] Author: Alyx Vergara RN Service: Nursing Author Type: Registered Nurse Type: ED Notes Filed: 11/26/2021 9:20 PM Note Text: Replaced smith per Asha BARR.[facility] HospitalED NOTEHNO ID: [id number] Author: Alyx Vergara RN Service: Nursing Author Type: Registered Nurse Type: ED Notes Filed: 11/26/2021 9:01 PM Note Text: Was instructed to bladder scan pt due to pt having no urine in replaced bag. Bladder scanned 261 mL's the first time. Then 214 mL's the second time. Made Asha ESQUIVEL) aware.[facility] NOTEHNO ID: [id number] Author: Alyx Vergara, GUS Service: Nursing Author Type: Registered Nurse Type: ED Notes Filed: 11/26/2021 9:49 PM Note Text: Flushed 20 mL Smith. No leaking noted around tube.[facility] PROV NOTEon 31-75-5351HX PROV NOTEHNO ID: [id number] Author: Asha Clinton PA-C Service: ? Author Type: Physician Paper Rewinder Type: ED Provider Notes Filed: 11/26/2021 10:26 [...] dysuria. Musculoskeletal: Negative. Skin: Negative. Neurological: Negative. Psychiatric/Behavioral: Negative. All other systems reviewed and are [...] chills. Afebrile, nontoxic-appearing. Benign abdominal exam. Irrigated Smith catheter without difficulty. Little to no urine was draining from leg bag in place. Bladder scan performed which was 261. Smith catheter changed. Urine draining appropriately. Patient feels much improved. Urinalysis shows 11-25 white blood cells and 6-10 red blood cells, 3+ leukoesterase with positive nitrites. Urine sent for culture. Previous and only urine culture in [facility] on 11/07 had no growth. Given dose of Keflex. Prescription for this E scripted to pharmacy. Patient discharged with Smith in place, leg bag instructions. Elevated blood pressure noted and improved during stay. No CP, sob, dizziness or any other complaints. Recommend f/u with pcp for recheck. All questions and concerns addre (more content not included)...NormalAv HospitalUrinalysis complete panel (U)on 68-53-6081Joefikns LM.HPF (Urine sed) [#/Area][facility] Comment on above:Order Comment: Specimen Type: URINE SPECIMEN Ordering Facility: [facility] Address: [address] [place], [place] [address]Performed By: #### 630-4, 35393-5 #### [facility] CLIA [id number] [address] [place] [address] [place] AMERICABilirubin Ql (U)Negative NormalNegativeAvon HospitalComment on above:Order Comment: Specimen Type: URINE SPECIMEN Ordering Facility: [facility] Address: [address] [place], [place] [address]Performed By: #### 630-4, 34550-0 #### [facility] CLIA [id number] [address] [place] [address] [place] AMERICAClarity (Unsp spec)Cloudy AbnormalClearAvon HospitalComment on above:Order Comment: Specimen Type: URINE SPECIMEN Ordering Facility: [facility] Address: [address] [place], [place] [address]Performed By: #### 630-4, 72390-0 #### [facility] CLIA [id number] [address] [place] [address] [place] AMERICAColor (U)YellowNormalYellow Tawny HospitalComment on above:Order Comment: Specimen Type: URINE SPECIMEN Ordering Facility: [facility] Address: [address] [place], [place] [address]Performed By: #### 630-4, 59795-4 #### [facility] CLIA [id number] [address] [place] [address] [place] AMERICAEpithelial cells LM.HPF (Urine sed) [#/Area]FewNormalAvon HospitalComment on above:Order Comment: Specimen Type: URINE SPECIMEN Ordering Facility: [facility] Address: [address] [place], [place] [address]Performed By: #### 630-4, 89752-8 #### [facility] CLIA [id number] [address] [place] [address] [place] AMERICAGlucose Test strip (U) [Mass/Vol]NegativeNormalNegativeAvon HospitalComment on above:Order Comment: Specimen Type: URINE SPECIMEN Ordering Facility: [facility] Address: [address] [place], [place] [address]Performed By: #### 630-4, 41719-0 #### [facility] CLIA [id number] [address] [place] [address] [place] AMERICAHemoglobin Ql (U)2+Abnormal NegativeAvon HospitalComment on above:Order Comment: Specimen Type: URINE SPECIMEN Ordering Facility[facility] Address: [address] [place], [place] [address]Performed By: #### 630-4, 80540-1 #### [facility] CLIA [id number] [address] [place] [address] [place] AMERICAKetones Ql (U)NegativeNormal NegativeAvon HospitalComment on above:Order Comment: Specimen Type: URINE SPECIMEN Ordering Facility: [facility] Address: [address] [place], [place] [address]Performed By: #### 630-4, 71244-7 #### [facility] CLIA [id number] [address] [place] [address] [facility] H[facility] OF THE K[facility]'S DAUGHTERSLeukocyte esterase Test strip Ql (U)3+AbnormalNegativeAvon HospitalComment on above:Order Comment: Specimen Type: URINE SPECIMEN Ordering Facility: [facility] Address: [address] [place], [place] [address]Performed By: #### 630-4, 23192-5 #### [facility] CLIA [id number] [address] [place], [place] [address]itrite Ql (U)Positive AbnormalNegativeAvon HospitalComment on above:Order Comment: Specimen Type: URINE SPECIMEN Ordering Facility: [facility] Address: [address] [place], [place] [address]Performed By: #### 630-4, 97564-9 #### [facility] CLIA [id number] [address] [place] [address] [place] AMERICApH (U)5.5 [pH]Normal5.0-8.0 [facility] HospitalComment on above:Order Comment: Specimen Type: URINE SPECIMEN Ordering Facility: [facility] Address: [address] [place], [place] [address]Performed By: #### 630-4, 14460-6 #### [facility] CLIA [id number] [address] [place] [address] [place] AMERICAProtein (U) [Mass/Vol]Normal Tawny HospitalComment on above:Order Comment: Specimen Type: URINE SPECIMEN Ordering Facility: [facility] Address: [address] [place], [place] [address]Result Comment: Visible blood causes falsely elevated results for analyte Protein. Due to this limitation, Protein will not be reported for patients whose urine contains visible blood. Performed By: #### 630-4, 33275-8 #### [facility] CLIA [id number] [address] [place] [address] [place] AMERICARB LM.HPF (Urine sed) [#/Area]6-10 /HPFAbnormal0-3 /HPFAvon HospitalComment on above:Order Comment: Specimen Type: URINE SPECIMEN Ordering Facility: [facility] Address: [address] [place], [place] [address]Performed By: #### 630-4, 99439-6 #### [facility] [place] [id number] [address] [place] [address] [place] AMERICASpecific gravity (U) [Rel density]1.801Fntzmj4.005-1.030Av HospitalComment on above:Order Comment: Specimen Type: URINE SPECIMEN Ordering Facility: [facility] Address: [address] [place], [place] [address]Performed By: #### 630-4, 37341-8 #### [facility] [place] [id number] [address] [place] [address] STATES OF [facility] HOSPITALUrobilinogen Ql (U)0.2 EU/dL Normal0.2-1.0 EU/dLAv HospitalComment on above:Order Comment: Specimen Type: URINE SPECIMEN Ordering Facility: [facility] Address: [address] [place], [place] [address]Performed By: #### 630-4, 08291-9 #### [facility] IA [id number] [address] [place] [address] [place] AMERICAW LM.HPF (Urine sed) [#/Area]11-25 /HPFAbnormal0-5 /HPFAvon HospitalComment on above:Order Comment: Specimen Type: URINE SPECIMEN Ordering Facility[facility] Address: [address] [place], [place] [address]Performed By: #### 630-4, 24482-4 #### [facility] [place] [id number] [address] [place] [address] [place] AMERICACovid-19 PCR (CVDTB)on 15-93-8627ZGOZ-CoV-2 (COVID-19) RNA LUANNE+probe Ql (Unsp spec)Not detectedNormal NOT DETECTEDThe [facility] HospitalComment on above:Result Comment: This test is not yet approved or cleared by the [place] FDA. When there are no FDA- approved or cleared tests available, and other criteria are met, FDA can make tests available under an emergency access mechanism called an Emergency Use Authorization (EUA). The EUA for this test is supported by the [place] of Health and Human Service's (HHS's) declaration [...] of clinical signs and symptoms consistent with SARS-CoV-2.Performed By: #### CVDTBH #### [facility] [address] [place] [address] Dr. Juan Pablo Duarte Ur Culton 60-18-3224Pfsoaixl identified Cx Nom (U)No growth (<1,000 CFU/ml)NormalAvon HospitalComment on above:Order Comment: Specimen Type: URINE SPECIMEN Order[facility] Facility[facility] Address: [address] [place] [phone] By: #### 630-4 #### [facility] CLIA [id number] [address] [place] [address] [place] OF AMERICABasic metabolic 2000 panelon 09-26-2537Gwoin gap [Moles/Vol]10 mmol/LNormal9-18Avon HospitalComment on above:Order Comment: Specimen Type: URINE SPECIMEN Ordering Facility: [facility] Address: [address] [place] [phone] By: #### 630-4, 31966-3 #### [facility] CLIA [id number] [address] [place] [address] [place] AMERICACalcium [Mass/Vol]9.1 mg/dL Normal8.5-10.2Avon HospitalComment on above:Order Comment: Specimen Type: URINE SPECIMEN Ordering Facility: [facility] Address: [address] [place], [place] [address]Performed By: #### 630-4, 86133-2 #### [facility] CLIA [id number] [address] [place] [address] [place] AMERICAChloride [Moles/Vol]95 mmol/YBmy65-504Rsdr HospitalComment on above:Order Comment: Specimen Type: URINE SPECIMEN Ordering Facility[facility] Address: [address] [place], [place] [address]Performed By: #### 630-4, 96199-8 #### [facility] CLIA [id number] [address] [place] [address] [place] AMERICACO2 [Moles/Vol]25 mmol/L Milriy80-79Ssvb HospitalComment on above:Order Comment: Specimen Type: URINE SPECIMEN Ordering Facility: [facility] Address: [address] [place], [place] [address]Performed By: #### 630-4, 39789-5 #### [facility] CLIA [id number] [address] [place] [address] [place] AMERICACreatinine [Mass/Vol]1.25 mg/dLHigh0.73-1.22Avon HospitalComment on above:Order Comment: Specimen Type: URINE SPECIMEN Ordering Facility: [facility] Address: [address] [place], [place] [address]Performed By: #### 630-4, 82976-2 #### [facility] CLIA [id number] [address] [place] [address] [place] AMERICAESTIMATED GLOMERULAR FILTRATION RATE57 mL/min/1.73m???Low>=60Avon HospitalComment on above:Order Comment: Specimen Type: URINE SPECIMEN Ordering Facility[facility] Address: [address] [place], [place] [phone] Comment: Estimated Glomerular Filtration Rate (eGFR) is calculated using the 2020 CKD-EPI cre atinine equation. This equation utilizes serum creatinine, sex, and age as parameters. The creatinine assay has traceable calibration to isotope dilution- mass spectrometry. Refer to KDIGO guidelines for clinical interpretation. In patients with unstable renal function, e.g. those with acute kidney injury, the eGFR may not accurately reflect actual GFR.Performed By: #### 630-4, 65076-0 #### [facility] CLIA [id number] [address] [place] [address] [place] AMERICAGlucose [Mass/Vol]129 mg/dL Xrmp69-64Pxeu HospitalComment on above:Order Comment: Specimen Type: URINE SPECIMEN Order[facility] Facility[facility] Address: [address] [place], [place] [phone] Comment: The [place] Diabetes Association (ADA) provides guidance for cutoff [...] Standards of Medical Care in Diabetes 2016, [place] [employer] Association. Diabetes Care. 2016.39(Suppl 1).Performed By: #### 630-4, 27690-5 #### [facility] CLIA [id number] [address] [place], [place] [address] [place] AMERICAPotassium [Moles/Vol]4.6 mmol/LNormal3.7-5.1Avon HospitalComment on above:Order Comment: Specimen Type: URINE SPECIMEN Ordering Facility: [facility] Address: [address] [place], [place] [address]Performed By: #### 630-4, 03265-1 #### [facility] CLIA [id number] [address] [place] [address] [place] [facility]ALSodium [Moles/Vol]130 mmol/L Hgw705-759Zdlm HospitalComment on above:Order Comment: Specimen Type: URINE SPECIMEN Ordering Facility: [facility] Address: [address] [place], [place] [address]Performed By: #### 630-4, 86308-0 #### [facility] CLIA [id number] [address] [place] [address] [place] OF AMERICAUrea nitrogen [Mass/Vol]23 mg/dLNormal9-24Avon HospitalComment on above:Order Comment: Specimen Type: URINE SPECIMEN Ordering Facility: [facility] Address: [address] [place], [place] [address]Performed By: #### 630-4, 46692-8 #### [facility] CLIA [id number] [address] [place], [place] [address]CB W Auto Differential panel (Bld)on 59-17-9070Twzmhmjkk/100 WBC (Bld)0.0 %NormalAvon HospitalComment on above:Order Comment: Specimen Type: URINE SPECIMEN Ordering Facility: [facility] Address: [address] [place], [place] [address]Performed By: #### 630-4, 62039-7 #### [facility] CLIA [id number] [address] [place] [address] [place] AMERICADifferential cell count method Nom (Bld)ManualNormalAvon HospitalComment on above:Order Comment: Specimen Type: URINE SPECIMEN Ordering Facility: [facility] Address: [address] [place], [place] [address]Performed By: #### 630-4, 98287-2 #### [facility] CLIA [id number] [address] [place] [address] [place] AMERICAEosinophils (Bld) [#/Vol] 0.10 10*3/uLNormal<0.46Avon HospitalComment on above:Order Comment: Specimen Type: URINE SPECIMEN Ordering Facility: [facility] Address: [address] [place], [place] [address]Performed By: #### 630-4, 36689-0 #### [facility] CLIA [id number] [address] [place] [address] [place] AMERICAEosinophils/100 WBC (Bld)1.0 %NormalAv HospitalComment on above:Order Comment: Specimen Type: URINE SPECIMEN Ordering Facility: [facility] Address: [address] [place], [place] [address]Performed By: #### 630-4, 10655-8 #### [facility] CLIA [id number] [address] [place] [address] [place] AMERICAErythrocyte distribution width (RBC) [Ratio]11.5 %Lpcfdu09.5-15.0Av HospitalComment on above:Order Comment: Specimen Type: URINE SPECIMEN Ordering Facility: [facility] Address: [address] [place], [place] [address]Performed By: #### 630-4, 51723-1 #### [facility] CLIA [id number] [address] [place] [address] [place] AMERICAHematocrit (Bld) [Volume fraction]39.8 %Pllzjz91.0-51.0Av HospitalComment on above:Order Comment: Specimen Type: URINE SPECIMEN Ordering Facility: [facility] Address: [address] [place], [place] [address]Performed By: #### 630-4, 83111-7 #### [facility] CLIA [id number] [address] [place] [address] [place] AMERICAHemoglobin (Bld) [Mass/Vol] 13.4 g/uLNnzinh26.0-17.0Av HospitalComment on above:Order Comment: Specimen Type: URINE SPECIMEN Ordering Facility: [facility] Address: [address] [place], [place] [address]Performed By: #### 630-4, 28503-4 #### [facility] CLIA [id number] [address] [place] [address] [place] AMERICALymphocytes (Bld) [#/Vol] 1.67 10*3/uLNormal1.00-4.00Av HospitalComment on above:Order Comment: Specimen Type: URINE SPECIMEN Ordering Facility: [facility] Address: [address] [place], [place] [address]Performed By: #### 630-4, 17281-1 #### [facility] IA [id number] [address] [place] [address] [place] AMERICALymphocytes/100 WBC (Bld) 17.0 %NormalAv HospitalComment on above:Order Comment: Specimen Type: URINE SPECIMEN Ordering Facility: [facility] Address: [address] [place], [place] [address]Performed By: #### 630-4, 18897-6 #### [facility] IA [id number] [address] [place] [address] [place] AMERICAMCH (RBC) [Entitic mass]31.5 zpXsnuwv39.0-34.0Av HospitalComment on above:Order Comment: Specimen Type: URINE SPECIMEN Ordering Facility: [facility] Address: [address] [place], [place] [address]Performed By: #### 630-4, 48916-4 #### [facility] CLIA [id number] [address] [place] [address] [place] AMERICAMCHC (RBC) [Mass/Vol]33.7 g/aLRodnef61.5-36.0Avon HospitalComment on above:Order Comment: Specimen Type: URINE SPECIMEN Ordering Facility: [facility] Address: [address] [place], [place] [address]Performed By: #### 630-4, 46228-6 #### [facility] CLIA [id number] [address] [place] [address] (RBC) [Entitic vol]93.4 pAInuxmf65.0-100.0Avon HospitalComment on above:Order Comment: Specimen Type: URINE SPECIMEN Ordering Facility: [facility] Address: [address] [place], [place] [address]Performed By: #### 630-4, 16093-0 #### [facility] CLIA [id number] [address] [place] [address] [place] AMERICANeutrophils (Bld) [#/Vol] 6.29 10*3/uLNormal1.45-7.50Av HospitalComment on above:Order Comment: Specimen Type: URINE SPECIMEN Ordering Facility: [facility] Address: [address] [place], [place] [address]Performed By: #### 630-4, 30986-0 #### [facility] CLIA [id number] [address] [place] [address] [place] AMERICANeutrophils/100 WBC (Bld) 64.0 %NormalAv HospitalComment on above:Order Comment: Specimen Type: URINE SPECIMEN Ordering Facility: [facility] Address: [address] [place] [address]Performed By: #### 630-4, 50499-8 #### [facility] CLIA [id number] [address] [place] [address] [place] AMERICANucleated RBC/100 WBC (Bld) [Ratio]0.0 /100 WBCNormalAvon HospitalComment on above:Order Comment: Specimen Type: URINE SPECIMEN Ordering Facility: [facility] Address: [address] [place] [address]Performed By: #### 630-4, 03470-3 #### [facility] CLIA [id number] [address] [place] [address] [place] AMERICAPLATELET ESTIMATEAdequate NormalAvon HospitalComment on above:Order Comment: Specimen Type: URINE SPECIMEN Ordering Facility: [facility] Address: [address] [place] [address]Performed By: #### 630-4, 92216-0 #### [facility] CLIA [id number] [address] [place] [address] [place] AMERICAPlatelet mean volume (Bld) [Entitic vol]10.2 fLNormal9.0-12.7Avon HospitalComment on above:Order Comment: Specimen Type: URINE SPECIMEN Ordering Facility: [facility] Address: [address] [place] [address]Performed By: #### 630-4, 19995-9 #### [facility] CLIA [id number] [address] [place] [address] [place] AMERICAPlatelets (Bld) [#/Vol]258 10*3/rITyvyqi124-741Jgof HospitalComment on above:Order Comment: Specimen Type: URINE SPECIMEN Ordering Facility: [facility] Address: [address] [place] [phone] By: #### 630-4, 03746-9 #### [facility] CLIA [id number] [address] [place] [address] [place] OF AMERICARBC (Bld) [#/Vol]4.26 10*6/uLNormal4.20-6.00Avon HospitalComment on above:Order Comment: Specimen Type: URINE SPECIMEN Ordering Facility: [facility] Address: [address] [place] [phone] By: #### 630-4, 83683-7 #### [facility] CLIA [id number] [address] [place] [address] [place] AMERICARED CELL MORPHReviewed: unremarkableNormalAvon HospitalComment on above:Order Comment: Specimen Type: URINE SPECIMEN Ordering Facility: [facility] Address: [address] [place] [address]Performed By: #### 630-4, 97504-7 #### [facility] CLIA [id number] [address] [place] [address] [place] OF AMERICAWAM - ABS BASO0.00 k/uL Normal<0.11Avon HospitalComment on above:Order Comment: Specimen Type: URINE SPECIMEN Ordering Facility: [facility] Address: [address] [place] [address]Performed By: #### 630-4, 31082-5 #### [facility] CLIA [id number] [address] [place] [address] [place] AMERICAWAM - ABS MONO1.77 k/uLHigh <0.87Avon HospitalComment on above:Order Comment: Specimen Type: URINE SPECIMEN Ordering Facility: [facility] Address: [address] [place] [phone] By: #### 630-4, 74817-4 #### [facility] CLIA [id number] [address] [place] [address] [place] OF AMERICAWAM - MONO%18.0 %NormalAvon HospitalComment on above:Order Comment: Specimen Type: URINE SPECIMEN Ordering Facility: [facility] Address: [address] [place] [address]Performed By: #### 630-4, 87037-0 #### [facility] CLIA [id number] [address] [place] [address] [place] AMERICAWAM ABSOLUTE NRBC<0.01Normal <0.01Avon HospitalComment on above:Order Comment: Specimen Type: URINE SPECIMEN Ordering Facility: [facility] Address: [address] [place], [place] [address]Performed By: #### 630-4, 18642-4 #### [facility] CLIA [id number] [address] [place] [address] STATES OF AMERICAWBC (Bld) [#/Vol]9.83 10*3/uLNormal3.70-11.00Avon HospitalComment on above:Order Comment: Specimen Type: URINE SPECIMEN Ordering Facility: [facility] Address: [address] [place], [place] [address]Performed By: #### 630-4, 66480-6 #### [facility] CLIA [id number] [address] [place], [place] [address]ED NOTEon 93-82-5713YE NOTE HNO ID: [id number] Author: Yoshi Schumacher RN Service: ? Author Type: Registered Nurse Type: ED Notes Filed: 11/07/2021 5:14 PM Note Text: Pt provided with discharged instructions. Medications gone over and all questions answered. Pt. Left with steady gait with friend for a ride.[facility] NOTEHNO ID: [id number] Author: Flaquita Donnelly RN Service: ? Author Type: Registered Nurse Type: ED Notes Filed: 11/07/2021 1:24 PM Note Text: Pt to ED for urinary retention. Pt had appointment with Urology on Wednesday, but was not able to be seen. Pt denies pain, but reports pressure in the bladder. Pt states he is not able to urinate completely and reports dribbling.[facility] HospitalED PR[facility] NOTEon 23-36-3588IV PROV NOTEHNO ID: [id number] Author: Keely Sanchez DO Service: Emergency Medicine [...] this Wednesday with his urologist out of [place] but was notified that his urologist had [...] Abnormal; Notable for the following components: Abs Laurel 1.77 (*) <0.87 k/uL All other components [...] cysts one of which is mildly complex. [employer]ched [employer] Processor: LIANA Transcribe Date/Time: Nov 07 2021 2:57P [...] catheter placement at th (more content not included)...NormalAvon HospitalUS KIDNEY/BLADDERon 08-00-8193RN KIDNEY/BLADDER* * *Final Report* * * DATE OF EXAM: Nov 07 2021 2:52PM [facility] 1055 - US KIDNEY/BLADDER / [...] cysts one of which is mildly complex. Etched Circuit Processor: ROBERTS CHAPELAngella Transcribe Date/Time: Nov 07 2021 2:57P Dictated by : NEHEMIAS COLBERT MD This examination was interpreted and the report reviewed and electronically signed by: NEHEMIAS COLBERT MD on Nov 07 2021 3:09PM EST [id number] HospitalUrinalysis complete panel (U)on 27-77-3458Kagqvyitp Ql (U)NegativeNormalNegativeAvon HospitalComment on above: Order Comment: Specimen Type: URINE SPECIMEN Order[facility] Address: [address] [place] [phone] By: #### 630-4, 56893-6 #### [facility] CLIA [id number] [address] [place] [address] [place] AMERICAClarity (Unsp spec)Clear NormalClearAvon HospitalComment on above:Order Comment: Specimen Type: URINE SPECIMEN Ordering Facility: [facility] Address: [address] [place], [place] [address]Performed By: #### 630-4, 14604-4 #### [facility] CLIA [id number] [address] [place] [address] [place] AMERICAColor (U)YellowNormalYellow Mill Spring HospitalComment on above:Order Comment: Specimen Type: URINE SPECIMEN Ordering Facility: [facility] Address: [address] [place], [place] [address]Performed By: #### 630-4, 48123-7 #### [facility] CLIA [id number] [address] [place] [address] [place] AMERICAEpithelial cells LM.HPF (Urine sed) [#/Area]FewNormalAvon HospitalComment on above:Order Comment: Specimen Type: URINE SPECIMEN Ordering Facility: [facility] Address: [address] [place], [place] [address]Performed By: #### 630-4, 93845-2 #### [facility] CLIA [id number] [address] [place] [address] [place] AMERICAGlucose Test strip (U) [Mass/Vol]NegativeNormalNegativeAvon HospitalComment on above:Order Comment: Specimen Type: URINE SPECIMEN Ordering Facility: [facility] Address: [address] [place], [place] [address]Performed By: #### 630-4, 15703-5 #### [facility] CLIA [id number] [address] [place] [address] [place] AMERICAHemoglobin Ql (U)Negative NormalNegativeAvon HospitalComment on above:Order Comment: Specimen Type: URINE SPECIMEN Ordering Facility: [facility] Address: [address] [place], [place] [address]Performed By: #### 630-4, 90710-9 #### [facility] CLIA [id number] [address] [place] [address] [place] AMERICAHyaline casts (Urine sed) [#/Area]1-3 /LPFAbnormal0 /LPFAvon HospitalComment on above:Order Comment: Specimen Type: URINE SPECIMEN Ordering Facility: [facility] Address: [address] [place], [place] [address]Performed By: #### 630-4, 71981-6 #### [facility] CLIA [id number] [address] [place] [address] [place] AMERICAKetones Ql (U)TraceAbnormal NegativeAvon HospitalComment on above:Order Comment: Specimen Type: URINE SPECIMEN Ordering Facility: [facility] Address: [address] [place], [place] [address]Performed By: #### 630-4, 83024-3 #### [facility] CLIA [id number] [address] [place] [address] [place] AMERICALeukocyte esterase Test strip Ql (U)NegativeNormalNegativeAvon HospitalComment on above:Order Comment: Specimen Type: URINE SPECIMEN Ordering Facility: [facility] Address: [address] [place], [place] [address]Performed By: #### 630-4, 29050-6 #### [facility] CLIA [id number] [address] [place] [address] [place] AMERICANitrite Ql (U)NegativeNormal NegativeAvon HospitalComment on above:Order Comment: Specimen Type: URINE SPECIMEN Ordering Facility: [facility] Address: [address] [place], [place] [address]Performed By: #### 630-4, 72073-7 #### [facility] CLIA [id number] [address] [place] [address] [place] [facility] H[facility]PITALpH (U)5.5 [pH]Normal5.0-8.0 [facility]wny HospitalComment on above:Order Comment: Specimen Type: URINE SPECIMEN Ordering Facility: [facility] Address: [address] [place], [place] [address]Performed By: #### 630-4, 42833-4 #### [facility] CLIA [id number] [address] [place] [address] [place] AMERICAProtein (U) [Mass/Vol] NegativeNormalNegativeAvon HospitalComment on above:Order Comment: Specimen Type: URINE SPECIMEN Ordering Facility: [facility] Address: [address] [place], [place] [address]Performed By: #### 630-4, 41525-1 #### [facility] CLIA [id number] [address] [place], [place] [address]RBC LM.HPF (Urine sed) [#/Area]0-3 /HPFNormal0-3 /HPFAvon HospitalComment on above:Order Comment: Specimen Type: URINE SPECIMEN Order[facility] Facility[facility] Address: [address] [place], [place] [address]Performed By: #### 630-4, 21399-9 #### [facility] IA [id number] [address] [place] [address] [place] AMERICASpecific gravity (U) [Rel density]1.935Nbdvrk4.005-1.030Av HospitalComment on above:Order Comment: Specimen Type: URINE SPECIMEN Ordering Facility: [facility] Address: [address] [place], [place] [address]Performed By: #### 630-4, 50185-6 #### [facility] CLIA [id number] [address] [place] [address] STATES OF [facility] COMM[facility] HOSPITALUrobilinogen Ql (U)0.2 EU/dL Normal0.2-1.0 EU/dLAv HospitalComment on above:Order Comment: Specimen Type: URINE SPECIMEN Ordering Facility: [facility] Address: [address] [place], [place] [address]Performed By: #### 630-4, 77250-0 #### [facility] CLIA [id number] [address] [place] [address] [place] AMERICAWBC LM.HPF (Urine sed) [#/Area]0-5 /HPFNormal0-5 /HPFAv HospitalComment on above:Order Comment: Specimen Type: URINE SPECIMEN Ordering Facility: [facility] Address: [address] [place], [place] [address]Performed By: #### 630-4, 13296-5 #### [facility] CLIA [id number] [address] [place] [address] [place] AMERICAMICROALBUMIN URINEon 65-12-2960Rjkgxgc, Urine5.6 ug/mLNormalNot Estab.The [facility] HospitalComment on above:Performed By: #### MALBLC #### [facility] [address] [address] [address] Juan Pablo Dubois CAROTID ART BILon 51-77-7081OS CAROTID ART BILEXAMINATION: [place] CAROTID ART SIMONE HISTORY: Cardiovascular symptoms [...] Electronically authenticated by: SAMY TORRES Date: 2021-10-23 17:19NormalThe [facility] AUTO DIFFon 32-34-7288JPMN #0.0 103/ulNormal0.0-0.1University Hospitals Health SystemComment on above:Performed By: #### A1C #### [facility] [address] [place] [address] Dr. Juan Pablo KaminskiBasophils/100 WBC (Bld)0.5 %Normal0.2-2.0[facility] Comment on above:Performed By: #### A1C #### [facility] [address] [place] [address] Dr. Juan Pablo Jimenez #0.3 103/ulNormal0.0-0.7The [facility] HospitalComment on above: Performed By: #### A1C #### [facility] [address] [place] [address] Dr. Juan Pablo Cruzosinophils/100 WBC (Bld)3.6 %Normal0.9-7.0The [facility] Comment on above:Performed By: #### A1C #### [facility] [address] [place] [address] Dr. Juan Pablo Cruzrythrocyte distribution width (RBC) [Ratio]11.1 %Esyvoh43.0-15.0 [facility] Health SystemComment on above:Performed By: #### A1C #### [facility] [address] [place] [address] Dr. Juan Pablo KaminskiHematocrit (Bld) [Volume fraction]41.8 %Critically low42.0-54.0 The [facility] HospitalComment on above:Performed By: #### A1C #### [facility] [address] [place] [address] Dr. Juan Pablo KaminskiHemoglobin (Bld) [Mass/Vol]14.1 g/rMPrigla66.0-18.0[facility]als Health SystemComment on above:Performed By: #### A1C #### [facility] [address] [place] [address] Dr. Juan Pablo Norman #0.03 10e3/ulNormal0.00-0.03The [facility] HospitalComment on above:Performed By: #### A1C #### [facility] [address] [place] [address] Dr. Juan Pablo Norman %0.4 %Normal0.0-0.5The [facility] HospitalComment on above: Performed By: #### A1C #### [facility] [address] [place] [address] Dr. Juan Pablo Archibald #2.2 103/ulNormal1.2-3.8The [facility] HospitalComment on above:Performed By: #### A1C #### [facility] [address] [place] [address] Dr. Juan Pablo Daleyhocytes/100 WBC (Bld)29.4 %Yxypkp92.5-60.0The [facility] HospitalComment on above:Performed By: #### A1C #### [facility] [address] [place] [address] Dr. Juan Pablo HaysOHIOHEALTH [facility] DIFF REQNONormalThe [facility] HospitalComment on above: Performed By: #### A1C #### [facility] [address] [place] [address] Dr. Juan Pablo Kan (RBC) [Entitic mass]31.8 qpIhhmmu19.9-34.0The [facility] HospitalComment on above:Performed By: #### A1C #### [facility] [address] [place] [address] Dr. Juan Pablo Mckay (RBC) [Mass/Vol]33.7 g/rEPedkzx07.9-35.2The [facility] HospitalComment on above:Performed By: #### A1C #### [facility] [address] [place] [address] Dr. Juan Pablo Mckay (RBC) [Entitic vol]94.1 fLCritically high80.0-94.0The [facility] HospitalComment on above:Performed By: #### A1C #### [facility] [address] [place] [address] Dr. Juan Pablo Balderrama #0.9 103/ulCritically high0.3-0.8The [facility] Comment on above:Performed By: #### A1C #### [facility] [address] [place] [address] Dr. Juan Pablo Anthonyocytes/100 WBC (Bld)11.7 %Normal1.7-12.0The [facility] Comment on above:Performed By: #### A1C #### [facility] [address] [place] [address] Dr. Juan Pablo Jacobson #4.0 103/ulNormal1.4-6.5The [facility] HospitalComment on above:Performed By: #### A1C #### [facility] [address] [place] [address] Dr. Juan Pablo Mohanutrophils/100 WBC (Bld)54.4 %Aaspdu82.0-75.0The [facility] HospitalComment on above:Performed By: #### A1C #### [facility] [address] [place] [address] Dr. Juan Pablo De Leonlet mean volume (Bld) [Entitic vol]8.6 fLCritically low 9.5-13.5The [facility] HospitalComment on above:Performed By: #### A1C #### [facility] [address] [place] [address] Dr. Juan Pablo KaminskiPLT231 103/kuPaiahq484-928Bwm [facility] HospitalComment on above: Performed By: #### A1C #### [facility] [address] [place] [address] Dr. Juan Pablo KaminskiRBC4.44 106/ulCritically low4.70-6.10The [facility] HospitalComment on above:Performed By: #### A1C #### [facility] [address] [place] [address] Dr. Juan Pablo KaminskiWBC7.3 103/ulNormal4.0-11.0The [facility] HospitalComment on above: Performed By: #### A1C #### [facility] [address] [place] [address] Dr. Juan Pablo ReyRECT LDLon 31-91-7585Biuhhbpqhrx in LDL [Mass/Vol]106 mg/dL NormalThe [facility] HospitalComment on above:Performed By: #### ALT, BMP, DLDL #### [facility] [address] [address] [address] Juan Pablo KaminskiDLDL NORMALSEE BELOWNoCincinnati Shriners HospitalComment on above: Result Comment: <100 mg/dl OPTIMAL 100 - 129 mg/dl NEAR OR ABOVE OPTIMAL 130 - 159 mg/dl BORDERLINE HIGH 160 - 189 mg/dl HIGH >190 mg/dl VERY HIGHPerformed By: #### ALT, BMP, DLDL #### [facility] [address] [address] [address] Juan Pablo KaminskiGLYCOHEMOGLOBIN A1Con 72-91-9590PYB RECOMMENDATIONSEE BELOWNoatrium health kings mountain The [facility] HospitalComment on above:Result Comment: ADA RECOMMENDED LIMIT 4.0 - 6.0 ADA THERAPEUTIC TARGET < 7.0 ACTION SUGGESTED > 7.0Performed By: #### A1C #### [facility] [address] [place] [address] Dr. Juan Pablo KaminskiGlucose [Mass/Vol]120 mg/dLNoCincinnati Shriners HospitalComment on above:Performed By: #### A1C #### [facility] [address] [place] [address] Dr. Juan Pablo KaminskiHbA1c (Bld) [Mass fraction]5.8 %Normal4.5-6.2The [facility] HospitalComment on above:Performed By: #### A1C #### [facility] [address] [place] [address] Dr. Juan Pablo KaminskiPROF CHEM 8 (BAS METB)on [id number] gap [Moles/Vol]12.7 mmol/LNormalThe [facility] HospitalComment on above:Performed By: #### A1C #### [facility] [address] [place] [address] Dr. Juan Pablo KaminskiCalcium [Mass/Vol]8.7 mg/dLNormal8.5-10.1[facility] Comment on above:Performed By: #### A1C #### [facility] [address] [address] [address] Juan Pablo KaminskiChloride [Moles/Vol]98 mmol/IKdlbqp81-116Wva [facility] Comment on above:Performed By: #### A1C #### [facility] [address] [address] [address] Juan Pablo KaminskiCO2 [Moles/Vol]28.0 mmol/OJyrslv15.0-32.0[facility] Comment on above:Performed By: #### A1C #### [facility] [address] [address] [address] Juan Pablo KaminskiCreatinine [Mass/Vol]1.07 mg/dLNormal0.70-1.30The [facility] HospitalComment on above:Performed By: #### A1C #### [facility] [address] [address] [address] Almeida ChangEGFR-AF AUSTRALIAN>60Normal>=60The [facility] HospitalComment on above:Performed By: #### A1C #### [facility] [address] [address] [address] Juan Pablo CruzGFR-NON AF AUSTRALIAN>60Normal>=60The [facility] HospitalComment on above:Performed By: #### A1C #### [facility] [address] [address] [address] Juan Pablo KaminskiGlucose [Mass/Vol]133 mg/dLCritically ljnn39-414Icd [facility] HospitalComment on above:Performed By: #### A1C #### [facility] [address] [address] [address] Juan Pablo KaminskiPotassium [Moles/Vol]4.7 mmol/LNormal3.5-5.1The [facility] Comment on above:Performed By: #### A1C #### [facility] [address] [address] [address] JuanP ablo KaminskiSodium [Moles/Vol]134 mmol/LCritically pvt438-132Dpw [facility] HospitalComment on above:Performed By: #### A1C #### [facility] [address] [address] [address] Juan Pablo Marin nitrogen [Mass/Vol]17.0 mg/dLNormal7.0-18.0The [facility] HospitalComment on above:Performed By: #### A1C #### [facility] [address] [place] [address] Dr. Juan Pablo Marin nitrogen/Creatinine [Mass ratio]15.9 mg/mgNoCincinnati Shriners HospitalComment on above:Performed By: #### A1C #### [facility] [address] [place] [address] Dr. Juan Pablo KaminskiSGPTon [id number] [Catalytic activity/Vol]31 U/RBjruhh67-11Lvj [facility]Comup [facility] on above:Performed By: #### A1C #### [facility] [address] [place] [address] Dr. Juan Pablo KaminskiGLYCOHEMOGLOBIN A1Con [id number] RECOMMENDATIONSEE BELOWNormal The [facility] HospitalComup [facility] on above:Result Comment: ADA RECOMMENDED LIMIT 4.0 - 6.0 ADA THERAPEUTIC TARGET < 7.0 ACTION SUGGESTED > 7.0Performed By: #### A1C #### [facility] [address] [place] [address] Dr. Juan Pablo KaminskiGlucose [Mass/Vol]131 mg/dLNoCincinnati Shriners HospitalComup health system on above:Performed By: #### A1C #### [facility] [address] [place] [address] Dr. Juan Pablo KaminskiHbA1c (Bld) [Mass fraction]6.2 %Normal4.5-6.2[facility] on above:Performed By: #### A1C #### [facility] [address] [place] [address] Dr. Juan Pablo Kaminski Vital Signs Date TimeVital SignValuePerforming [id number] 13:17040Body cuuvaq913.5 cmBenjamin indoo.rs DO Work Phone: [facility]10-07-2025 13:170400 Body mass index (BMI) [Ratio]28 kg/n9Smkpxofo Ball DO Work Phone: [facility]10-07-2025 13:17-0400 Body lygwjs806.77 kgBenjamin Ball DO Work Phone: [facility]10-07-2025 13:17-0400 Diastolic blood mm[Hg]Campbell Ball DO Work Phone: [facility]10-07-2025 13:17-0400 Heart rate62 /minBenjamin Ball DO Work Phone: [phone]10-07-2025 13:17-0400 Respiratory rate12 /minBenjamin Ball DO Work Phone: [phone]10-07-2025 13:17-0400 Systolic blood vlfnxupn354 mm[Hg]Campbell Ball DO Work Phone: [phone]08-12-2025 15:03-0400 Body mass index (BMI) [Ratio]27.5 kg/p3Iutlh [facility] INSURANCE EXAMINING CLERK.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 Work Phone: [phone]08-12-2025 15:03-0400Body ovchrh26.79 kgTerri [facility] INSURANCE EXAMINING CLERK.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 Work Phone: [phone]08-12-2025 15:03-0400Diastolic blood sexcsglh57 mm[Hg]Leticia Rukhsana INSURANCE EXAMINING CLERK.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 Work Phone: [phone]08-12-2025 15:03-0400Heart rate62 /min Leticia [facility] INSURANCE EXAMINING CLERK.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 Work Phone: [phone]08-12-2025 15:03-0400Systolic blood ksjflvik565 mm[Hg]Leticia Rukhsana INSURANCE EXAMINING CLERK.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 Work Phone: [phone]07-25-2025 08:24-0400Body bquxnp290.5 cmBenjamin Ball DO Work Phone: [phone]07-25-2025 08:24-0400 Body mass index (BMI) [Ratio]27.1 kg/o5Zdmbdkea Ball DO Work Phone: [phone])[address] [place], [place] 0706507-25-2025 08:24-0400 Body hjeooo39.62 kgBenjamin Ball DO Work Phone: [phone])[address] [place], [place] 0706507-25-2025 08:24-0400 Diastolic blood wtnalyev09 mm[Hg]Campbell Ball DO Work Phone: [phone])[address] [place], [place] [address]706507-25-2025 08:24-0400 Heart rate51 /minBenjamin Ball DO Work Phone: [phone])[address] [place], [place] 0706507-25-2025 08:24-0400 Respiratory rate12 /minBenjamin Ball DO Work Phone: [phone])[address] [place], [place] 0706507-25-2025 08:24-0400 SaO2% (BldA) [Mass fraction]99 %Campbell Ball DO Work Phone: [phone])[address] [place], [place] 0706507-25-2025 08:24-0400 Systolic blood bxssdpug676 mm[Hg]Campbell Ball DO Work Phone: [phone])[address] [place], [place] 0706507-10-2025 09:36-0400 Body .5 cmBenjamin Ball DO Work Phone: [phone])[address] [place], [place] [address]706507-10-2025 09:36-0400 Body mass index (BMI) [Ratio]27.6 kg/e2Mgivpwzu Ball DO Work Phone: [phone])[address] [place], [place] 0706507-10-2025 09:36-0400 Body .3 kgBenjamin Ball DO Work Phone: [phone])[address] [place], [place] 0706507-10-2025 09:36-0400 Diastolic blood qrpwntuf51 mm[Hg]Campbell Ball DO Work Phone: 1419)[address] [place], [place] [address]706507-10-2025 09:36-0400 Heart rate52 /minBenjamin Ball DO Work Phone: [phone])[address] [place], [place] [address]507-10-2025 09:36-0400 Respiratory rate12 /minBenjamin Ball DO Work Phone: [facility]07-10-2025 09:36-0400 SaO2% (BldA) [Mass fraction]98 %Campbell Ball DO Work Phone: [facility]07-10-2025 09:36-0400 Systolic blood qoqiiccz572 mm[Hg]Campbell Ball DO Work Phone: [facility]06-02-2025 10:27-0400 Body .5 cm[facility]06-02-2025 10:27-0400Body mass index (BMI) [Ratio]28.1 kg/d2JzbqmwzgmKettering Health06-02-2025 10:27-0400Body .05 kgK[facility]06-02-2025 10:27-0400Diastolic blood kmfovqve87 mm[Hg][facility] 08-14-2024 10:27-0400Heart rate50 /[facility] 08-14-2024 10:27-0400Respiratory rate18 /[facility] 08-14-2024 10:27-0400Systolic blood beacosph695 mm[Hg][facility]04-23-2025 09:38-0400Diastolic blood hzixjtir59 mm[Hg][facility]04-23-2025 09:38-0400Diastolic blood mm[Hg][facility]04-23-2025 09:38-0400Heart rate60 /[facility]04-23-2025 09:38-0400Systolic blood khwsvjke891 mm[Hg][facility]04-23-2025 09:38-0400Systolic blood funukgse524 mm[Hg] [facility]04-23-2025 09:30-0400Body myisvt734.5 cm [facility]04-23-2025 09:30-0400Body mass index (BMI) [Ratio]28.3 kg/x6KedrdllkwKettering Health04-23-2025 09:30-0400Body zrbejk832.96 kgK[facility]04-23-2025 09:30-0400Respiratory rate12 /[facility]04-23-2025 09:30-4610NrR2% (BldA) [Mass fraction]98 %[facility]03-10-2025 10:05-0400Body yushky344.5 cmK[facility]03-10-2025 10:05-0400Body mass index (BMI) [Ratio]28.6 kg/z5HbzmzzhkxK[facility]tering Health03-10-2025 10:05-0400Body pnhcai768.87 kg[facility]03-10-2025 10:05-0400Diastolic blood mmwhmijq24 mm[Hg][facility] 05-22-2024 10:05-0400Heart rate55 /[facility] 05-22-2024 10:05-0400Respiratory rate18 /[facility] 05-22-2024 10:05-3437OqE3% (BldA) [Mass fraction]98 %[facility]03-10-2025 10:05-0400Systolic blood kaudikgl176 mm[Hg][facility]02-10-2025 13:24-0500Diastolic blood rezsdqbh33 mm[Hg]Campbell Ball DO Work Phone: [facility]02-10-2025 13:24-0500 Heart rate82 /minBenjamin Ball DO Work Phone: [facility]02-10-2025 13:24-0500 Respiratory rate18 /minBenjamin Ball DO Work Phone: [facility]02-10-2025 13:24-0500 Systolic blood khnxqguf199 mm[Hg]Campbell Ball DO Work Phone: [facility]02-10-2025 13:23-0500 Body autuvw766.5 cmBenjamin Ball DO Work Phone: [facility]02-10-2025 13:23-0500 Body mass index (BMI) [Ratio]27.8 kg/b2Lgrzhprl Ball DO Work Phone: [phone]02-10-2025 13:23-0500 Body salkkx776.15 kgBenjamin Ball DO Work Phone: [phone])978-[address] [place], [place] 1555202-10-2025 13:23-0500 SaO2% (BldA) [Mass fraction]97 %Campbell Ball DO Work Phone: [phone])079-[address] [place], [place] 1555202-07-2025 16:26-0500 Body mass index (BMI) [Ratio]26.87 kg/z8Uqast Rukhsana INSURANCE EXAMINING CLERK.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 Work Phone: [phone]02-07-2025 16:26-0500Body gpylmd02.52 kgTerri Rukhsana INSURANCE EXAMINING CLERK.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 Work Phone: [facility]02-07-2025 16:26-0500Diastolic blood pydwzorj16 mm[Hg]Leticia Milian INSURANCE EXAMINING CLERK.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 Work Phone: [facility]02-07-2025 16:26-0500Heart rate76 /min Leticia Milian INSURANCE EXAMINING CLERK.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 Work Phone: [phone]02-07-2025 16:26-0500Systolic blood aokcghyu231 mm[Hg]Leticia Milian INSURANCE EXAMINING CLERK.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 Work Phone: [phone]01-22-2025 08:32-0500Body .5 cmBenjamin Ball DO Work Phone: [phone] [place], [place] 1555201-22-2025 08:32-0500 Body mass index (BMI) [Ratio]27.8 kg/j7Qeuumzuj Ball DO Work Phone: 1419)[facility] [place], [place] 1555201-22-2025 08:32-0500 Body lbpwjo413.15 kgBenjamin Ball DO Work Phone: 1419[facility] [place], [place] 1555201-22-2025 08:32-0500 Diastolic blood mm[Hg]Campbell Ball DO Work Phone: 1(419)[address] [place], [place] [address]6501-22-2025 08:32-0500 Diastolic blood gannpmff17 mm[Hg]Campbell Ball DO Work Phone: 1(419)[address] [place], [place] [address]01-22-2025 08:32-0500 Heart rate71 /minBenjamin Ball DO Work Phone: 1(419)[address] [place], [place] [address]01-22-2025 08:32-0500 SaO2% (BldA) [Mass fraction]100 %Campbell Ball DO Work Phone: 1(419)[address] [place], [place] [address]6501-22-2025 08:32-0500 Systolic blood kqdhsyxi196 mm[Hg]Campbell Ball DO Work Phone: 1(419)[address] [place], [place] [address]01-22-2025 08:32-0500 Systolic blood wtbmjaqu535 mm[Hg]Campbell Ball DO Work Phone: 1(419)[address] [place], [place] [address]6512-31-2024 15:07-0500 Body xcxwab689.5 cmBenjamin Ball DO Work Phone: 1(419)[address] [place], [place] [address]12-31-2024 15:07-0500 Body mass index (BMI) [Ratio]28 kg/s2Axhbyosl Ball DO Work Phone: 1(419)[address] [place], [place] [address]12-31-2024 15:07-0500 Body jgtcah208.6 kgBenjamin Ball DO Work Phone: 1(419)[address] [place], [place] [address]12-31-2024 15:07-0500 Diastolic blood zazlsnwf19 mm[Hg]Campbell Ball DO Work Phone: 1(419)[address] [place], [place] [address]12-31-2024 15:07-0500 Heart rate75 /minBenjamin Ball DO Work Phone: 1(419)[address] [place], [place] [address]12-31-2024 15:07-0500 Respiratory rate18 /minBenjamin Ball DO Work Phone: 1(419)[address] [place], [place] [address]12-31-2024 15:07-0500 SaO2% (BldA) [Mass fraction]98 %Campbell Ball DO Work Phone: 1(419)[address] [place], [place] [address]12-31-2024 15:07-0500 Systolic blood znfpbdyk078 mm[Hg]Campbell Ball DO Work Phone: [facility]11-26-2024 08:32-0500 Body mass index (BMI) [Ratio]28.12 kg/j6Eeubgmoses Milian INSURANCE EXAMINING CLERK.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 Work Phone: [facility]11-26-2024 08:32-0500Body ysmqme042.06 kgTermoses Rukhsana INSURANCE EXAMINING CLERK.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 Work Phone: [facility]11-26-2024 08:32-0500Diastolic blood nydcfypt87 mm[Hg]Leticia Milian INSURANCE EXAMINING CLERK.[facility] Work Phone: [facility]11-26-2024 08:32-0500Heart rate54 /min Leticia Milian INSURANCE EXAMINING CLERK.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 Work Phone: [facility]11-26-2024 08:32-0500Systolic blood hlnoxolc163 mm[Hg]Leticia Milian INSURANCE EXAMINING CLERK.[facility] Work Phone: [facility]11-19-2024 13:25-0500Body isyuje302.5 cm[facility]11-19-2024 13:25-0500Body mass index (BMI) [Ratio]28.5 kg/f7AukgeufcxK[facility] Health11-19-2024 13:25-0500Body mkcged253.47 kgK[facility]11-19-2024 13:25-0500Diastolic blood lmwnuxxv29 mm[Hg][facility]11-19-2024 13:25-0500 Heart rate63 /[facility]11-19-2024 13:25-0500 Respiratory rate63 /[facility]11-19-2024 13:25-0500 Systolic blood juycqltw355 mm[Hg][facility]10-15-2024 08:30-0400Body .5 cmK[facility]10-15-2024 08:30-0400Body mass index (BMI) [Ratio]27.8 kg/w1WfbnxlnghKettering Health10-15-2024 08:30-0400Body hcxpeh821.92 kg[facility] 12-28-2023 08:30-0400Diastolic blood cpeslszy60 mm[Hg][facility]10-15-2024 08:30-0400Heart rate71 /[facility] 12-28-2023 08:30-0400Respiratory rate12 /[facility] 12-28-2023 08:30-0400Systolic blood hooincmu866 mm[Hg][facility]07-11-2024 08:35-0400Body dbdcpi886.5 cmDO Campbell Ball Work Phone: [phone])[address]07-11-2024 08:35-0400 Body mass index (BMI) [Ratio]27.8 kg/m2DO Campbell Ball Work Phone: [phone]65[facility]07-11-2024 08:35-0400 Body dhbcyv940.86 kgDO Campbell Ball Work Phone: [phone]07-11-2024 08:35-0400 Diastolic blood azhbbemx79 mm[Hg]DO Campbell Ball Work Phone: [phone]07-11-2024 08:35-0400 Heart rate70 /minDO Campbell Ball Work Phone: [phone]07-11-2024 08:35-0400 Respiratory rate12 /minDO Campbell Ball Work Phone: [phone]07-11-2024 08:35-0400 Systolic blood qarzsndl515 mm[Hg]DO Campbell Ball Work Phone: 1(609)[address]05-22-2024 08:59-0400 Body mass index (BMI) [Ratio]27.5 kg/h0Okucgmoses Milian APRN.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 Work Phone: [facility]05-22-2024 08:59-0400Body kpqalc45.79 kgTermoses Milian APRN.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 Work Phone: [facility]05-22-2024 08:59-0400Diastolic blood mm[Hg]Leticia Felderdaksha BARBAN.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 Work Phone: [facility]05-22-2024 08:59-0400Heart rate65 /min Leticia Felderson INSURANCE EXAMINING CLERK.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 Work Phone: [facility]05-22-2024 08:59-0400Systolic blood srxeaoga401 mm[Hg]Leticia Felderdaksha BARBAN.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 Work Phone: [facility]04-26-2024 13:38-0400Body deqqkz376.5 cmDO Campbell Ball Work Phone: 1([phone])[address]04-26-2024 13:38-0400 Body mass index (BMI) [Ratio]28 kg/m2DO Campbell Ball Work Phone: 1(422)[address]04-26-2024 13:38-0400 Body jymqsl001.6 kgDO Campbell Ball Work Phone: 1(346)[address]04-26-2024 13:38-0400 Diastolic blood qlloaixd11 mm[Hg]DO Campbell Ball Work Phone: 1(899)[address]04-26-2024 13:38-0400 Heart rate78 /minDO Campbell Ball Work Phone: 1(250)706-[address] [place], [place] 1555204-26-2024 13:38-0400 Systolic blood sktwvhey410 mm[Hg]DO Campbell Ball Work Phone: 1(933)830-[address] [place], [place] 1555204-10-2024 09:16-0400 Body nezkya771.5 cmDO Campbell Ball Work Phone: 1(351)409-[address] [place], [place] 1555204-10-2024 09:16-0400 Body mass index (BMI) [Ratio]28 kg/m2DO Campbell Ball Work Phone: [phone]04-10-2024 09:16-0400 Body swvalm156.6 kgDO Campbell Ball Work Phone: 1(766)[address]04-10-2024 09:16-0400 Diastolic blood mm[Hg]DO Campbell Ball Work Phone: [phone]04-10-2024 09:16-0400 Heart rate69 /minDO Campbell Ball Work Phone: 1(994)759-[address] [place], [place] 1555204-10-2024 09:16-0400 Respiratory rate16 /minDO Campbell Ball Work Phone: 1(511)254-[address] [place], [place] 1555204-10-2024 09:16-0400 Systolic blood cjgoeaaj994 mm[Hg]DO Campbell Ball Work Phone: 1(806)[address]03-08-2024 10:53-0500 Body .5 cmDO Campbell Ball Work Phone: 1(031)[address] [place], [place] 0706503-08-2024 10:53-0500 Body mass index (BMI) [Ratio]27 kg/m2DO Campbell Ball Work Phone: 1(172)[address] [place], [place] 0706503-08-2024 10:53-0500 Body uprkhs66.03 kgDO Campbell Ball Work Phone: 1(667)390-[address] [place], [place] 1555203-08-2024 10:53-0500 Diastolic blood xihbfkgq81 mm[Hg]DO Campbell Ball Work Phone: 1(122)[address] [place], [place] 0706503-08-2024 10:53-0500 Heart rate76 /minDO Campbell Ball Work Phone: 1(988)023-[address] [place], [place] 1555203-08-2024 10:53-0500 Respiratory rate12 /minDO Campbell Ball Work Phone: 1(318)[facility] [place], [place] 1555203-08-2024 10:53-0500 Systolic blood kacoyqzd072 mm[Hg]DO Campbell Ball Work Phone: 1(656)210-[address] [place], [place] 1555203-02-2024 13:10-0500 Body dhrsabbsecr48.6 [degF]DO Campbell Ball Work Phone: 1(439)[address]03-02-2024 13:10-0500 Diastolic blood yoedwscb22 mm[Hg]DO Campbell Ball Work Phone: 1(620)086-[address] [place], [place] 1555203-02-2024 13:10-0500 Heart rate90 /minDO Campbell Ball Work Phone: [facility]03-02-2024 13:10-0500 Respiratory rate18 /minDO Campbell Ball Work Phone: [facility]03-02-2024 13:10-0500 SaO2% (BldA) [Mass fraction]97 %DO Campbell Ball Work Phone: [facility]03-02-2024 13:10-0500 Systolic blood vqemdexc501 mm[Hg]DO Campbell Ball Work Phone: [facility]03-02-2024 10:56-0500 Body wiyepi625.5 cmDO Campbell Ball Work Phone: [facility]03-02-2024 10:56-0500 Body kfeyxe84.9 kgDO Campbell Ball Work Phone: [phone]02-07-2024 14:30-0500 Body ghvago173.5 cmBenjamin Ball Other [facility] Other 02-07-2024 14:30-0500Body mass index (BMI) [Ratio] 28.07 kg/r1Amhthdaz Ball Other [facility] Other 02-07-2024 14:30-0500Body mnsxxy639.88 kgBenjamin Ball Other [facility] Other 02-07-2024 14:30-0500Diastolic blood fvbqaqtm94 mm[Hg] Campbell Ball Other [facility] Other 02-07-2024 14:30-0500Respiratory rate12 /minBenjamin Ball Other [facility] Other 02-07-2024 14:30-0500Systolic blood odypdqxu308 mm[Hg] Campbell Ball Other [employer] Other 01-03-2024 10:30-0500Body osewmx341.5 cmBenjamin Ball Other [employer] Other 01-03-2024 10:30-0500Body mass index (BMI) [Ratio] 27.55 kg/f3Enroezjt Ball Other [employer] Other 01-03-2024 10:30-0500Body eeaujl86.97 kgBenjamin Ball Other [employer] Other 01-03-2024 10:30-0500Diastolic blood mm[Hg] Campbell Ball Other [facility] Other 01-03-2024 10:30-0500Respiratory rate12 /minBenjamin Ball Other [employer] Other 01-03-2024 10:30-0500Systolic blood vcxxbcox681 mm[Hg] Campbell Ball Other [employer] Other 12-12-2023 09:30-0500Body wgyvzg732.5 cmBenjamin Ball Other [employer] Other 12-12-2023 09:30-0500Body mass index (BMI) [Ratio] 28.02 kg/e0Xoqlekea Ball Other [employer] Other 12-12-2023 09:30-0500Body tuqphi454.7 kgBenjamin Ball Other [employer] Other 12-12-2023 09:30-0500Diastolic blood grglmqzy42 mm[Hg] Campbell Ball Other [facility] Other 12-12-2023 09:30-0500Respiratory rate12 /minBenjamin Ball Other [employer] Other 12-12-2023 09:30-0500Systolic blood mfyaxude787 mm[Hg] Campbell Ball Other [facility] Other 12-08-2023 10:45-0500Body .5 cmBenjamin Ball Other [employer] Other 12-08-2023 10:45-0500Body mass index (BMI) [Ratio]28 kg/v5Nehpviqb Ball Other [employer] Other 12-08-2023 10:45-0500Body qybaym061.61 kgBenjamin Ball Other [employer] Other 12-08-2023 10:45-0500Diastolic blood mm[Hg] Campbell Ball Other [employer] Other 12-08-2023 10:45-0500Respiratory rate12 /minBenjamin Ball Other [employer] Other 12-08-2023 10:45-0500Systolic blood qsxozkuf009 mm[Hg] Campbell Ball Other [employer] Other [id number] 13:37-0500Body nsuiba889.06 kgLeticia Milian APRN.CNP Work Phone: [place] [address]-21-2023 13:37-0500Diastolic blood xtciazgs20 mm[Hg]Leticia [facility] INSURANCE EXAMINING CLERK.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 Work Phone: [facility]11-21-2023 13:37-0500Heart rate65 /min Leticia Milian INSURANCE EXAMINING CLERK.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 Work Phone: [facility]11-21-2023 13:37-0500Systolic blood mhbhgeew951 mm[Hg]Leticia Milian INSURANCE EXAMINING CLERK.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 Work Phone: [facility]07-11-2023 12:15-0400Body cxdlin169.5 cmBenjamin Ball Other [employer] Other 07-11-2023 12:15-0400Diastolic blood wdntzroh61 mm[Hg] Campbell Ball Other [employer] Other 07-11-2023 12:15-0400Systolic blood fzbmsmqo942 mm[Hg] Campbell Ball Other [employer] Other 07-06-2023 09:00-0400Body hidzqw577.5 cmBenjamin Ball Other [employer] Other 07-06-2023 09:00-0400Body mass index (BMI) [Ratio] 27.57 kg/n1Vrqlunec Ball Other [employer] Other 07-06-2023 09:00-0400Body tbbyrk502.06 kgBenjamin Ball Other [employer] Other 07-06-2023 09:00-0400Diastolic blood jliqesvk01 mm[Hg] Campbell Ball Other [employer] Other 07-06-2023 09:00-0400Respiratory rate12 /minBenjamin Ball Other [employer] Other 07-06-2023 09:00-0400Systolic blood tesmgptv542 mm[Hg] Campbell Ball Other [facility] Other 04-06-2023 10:00-0400Body dnfkzo333.5 cmBenjamin Ball Other [facility] Other 04-06-2023 10:00-0400Body mass index (BMI) [Ratio] 28.02 kg/e5Jzijlutu Ball Other [facility] Other 04-06-2023 10:00-0400Body ndrsvy364.7 kgBenjamin Ball Other [facility] Other 04-06-2023 10:00-0400Diastolic blood sbzowgqq08 mm[Hg] Campbell Ball Other [facility] Other 04-06-2023 10:00-0400Respiratory rate12 /minBenjamin Ball Other [facility] Other 04-06-2023 10:00-0400Systolic blood idarzmtx961 mm[Hg] Campbell Ball Other [facility] Other 01-25-2023 12:00-0500Body ztamrr505.5 cmBenjamin Ball Other [facility] Other 01-25-2023 12:00-0500Body mass index (BMI) [Ratio] 27.82 kg/x0Objxnfsh Ball Other [facility] Other 01-25-2023 12:00-0500Body adrjcrtanne18.1 [degF] Campbell Ball Other [facility] Other 01-25-2023 12:00-0500Body .97 kgBenjamin Ball Other [facility] Other 01-25-2023 12:00-0500Diastolic blood mm[Hg] Campbell Ball Other [facility] Other 01-25-2023 12:00-2822PbH2% (BldA) [Mass fraction]97 % Campbell Ball Other [facility] Other 01-25-2023 12:00-0500Systolic blood oztxhhes383 mm[Hg] Campbell Ball Other [facility] Other 01-06-2023 10:00-0500Body igcfra739.5 cmBenjamin Ball Other [facility] Other 01-06-2023 10:00-0500Body mass index (BMI) [Ratio] 27.95 kg/f4Hztgjprb Ball Other [facility] Other 01-06-2023 10:00-0500Body tjejhw906.42 kgBenjamin Ball Other [facility] Other 01-06-2023 10:00-0500Diastolic blood xyhcjepj19 mm[Hg] Campbell Ball Other [facility] Other 01-06-2023 10:00-0500Respiratory rate12 /minBenjamin Ball Other [facility] Other 01-06-2023 10:00-0500Systolic blood pufxvjgs803 mm[Hg] Campbell Ball Other [facility] Other [id number] 08:47-0400Body ytekji30.52 kgLeonard Dugan MD Work Phone: [facility]10-27-2022 08:47-0400Diastolic blood kmpwdffu76 mm[Hg]Leonard Dugan MD Work Phone: [facility]10-27-2022 08:47-0400Heart rate72 /min Leonard Dugan MD Work Phone: [facility]10-27-2022 08:47-0400Systolic blood itptkcen300 mm[Hg]Leonard Dugan MD Work Phone: [facility]10-14-2022 08:32-0400Body temperature 98 [degF]DO Campbell Ball Work Phone: [phone]41[facility]10-14-2022 08:32-0400 Diastolic blood tustxkjg93 mm[Hg]DO Campbell Ball Work Phone: [phone]10-14-2022 08:32-0400 Heart rate75 /minDO Campbell Ball Work Phone: [phone]10-14-2022 08:32-0400 Respiratory rate18 /minDO Campbell Ball Work Phone: [phone]14[facility]10-14-2022 08:32-0400 SaO2% (BldA) [Mass fraction]98 %DO Campbell Ball Work Phone: [phone]10-14-2022 08:32-0400 Systolic blood whgovogw188 mm[Hg]DO Campbell Ball Work Phone: [phone]10-05-2022 16:22-0400 Body yiafrb096.5 cmDO Campbell Ball Work Phone: [phone]10-05-2022 16:22-0400 Body yxifgq47.52 kgDO Campbell Ball Work Phone: [phone]10-05-2022 16:19-0400 Body fvaemaijlup95.4 [degF]DO Campbell Ball Work Phone: [facility]10-05-2022 16:19-0400 Diastolic blood knukrhjw89 mm[Hg]DO Campbell Ball Work Phone: [phone]10-05-2022 16:19-0400 Heart rate66 /minDO Campbell Ball Work Phone: [phone] [place], [place] 1555210-05-2022 16:19-0400 Respiratory rate16 /minDO Campbell Ball Work Phone: [phone]10-05-2022 16:19-0400 SaO2% (BldA) [Mass fraction]96 %DO Campbell Ball Work Phone: [phone]10-05-2022 16:19-0400 Systolic blood txrbnqaj854 mm[Hg]DO Campbell Ball Work Phone: [phone]10-04-2022 14:41-0400 Diastolic blood jqarjuom07 mm[Hg]Leonard Dugan MD Work Phone: [facility]10-04-2022 14:41-0400Heart rate69 /min Leonard Dugan MD Work Phone: [facility]10-04-2022 14:41-0400Respiratory rate 16 /minLeonard Dugan MD Work Phone: [facility]10-04-2022 14:41-0400Systolic blood fhwdpuhd603 mm[Hg]Leonard Dugan MD Work Phone: [facility]09-29-2022 18:25-0400Body temperature 97.5 [degF]DO Campbell Ball Work Phone: [phone]09-29-2022 18:25-0400 Diastolic blood mm[Hg]DO Campbell Ball Work Phone: [phone]09-29-2022 18:25-0400 Heart rate67 /minDO Campbell Ball Work Phone: [phone]09-29-2022 18:25-0400 Respiratory rate20 /minDO Campbell Ball Work Phone: [phone]09-29-2022 18:25-0400 SaO2% (BldA) [Mass fraction]99 %DO Campbell Ball Work Phone: [phone]09-29-2022 18:25-0400 Systolic blood ggpqosvg909 mm[Hg]DO Campbell Ball Work Phone: [phone]09-29-2022 16:57-0400 Body kjguqe583.5 cmDO Campbell Ball Work Phone: [phone]09-29-2022 16:57-0400 Body rvoydf56.5 kgDO Campbell Ball Work Phone: [phone]09-28-2022 10:50-0400 Body hbogzd38.25 kgNurse Emelia Work Phone: [facility]09-28-2022 10:50-0400Diastolic blood oxkdugjn21 mm[Hg]Nurse Emelia Work Phone: [phone]09-28-2022 10:50-0400Heart rate59 /min Nurse Emelia Work Phone: [phone]09-28-2022 10:50-0400Systolic blood dqpjyayk585 mm[Hg]Nurse Emelia Work Phone: [phone]09-27-2022 14:27-0400Body jveaxk53.25 kg[facility] [place] Work Phone: [facility]09-27-2022 14:27-0400Diastolic blood bzatqeut16 mm[Hg][employer] [place] Work Phone: [phone]09-27-2022 14:27-0400Heart rate70 /min [employer] [place] Work Phone: [facility]09-27-2022 14:27-0400Systolic blood uwmsurup471 mm[Hg][employer] [place] Work Phone: [facility]08-31-2022 11:23-0400Body rnklje36.16 kgLeonard Dugan MD Work Phone: [facility]08-31-2022 11:23-0400Diastolic blood qsutzwgp21 mm[Hg]Leonard Dugan MD Work Phone: [facility]08-31-2022 11:23-0400Heart rate56 /min Leonard Dugan MD Work Phone: [facility]08-31-2022 11:23-0400Systolic blood nszpcygf103 mm[Hg]Leonard Dugan MD Work Phone: [facility] Encounters Encounter DateEncounter TypeCare ProviderFacilityStart: 12-19-2024 End: 08-11-5125pycmkzyxuzPtjtfytd Quentin DO Work Phone: [facility] Work Phone: Start: 12-19-2024 End: 76-95-0163Khyfdet encounter procedureBemaria l Quentin DO-[facility] Work Phone: Start: 11-20-2024 End: 20-04-0933Fazwhw Osmany Torres DO Work Phone: [facility] EyeStart: 11-20-2024 End: 39-03-4888Mftnds Osmany Torres DO Work Phone: [facility] EyeStart: 11-20-2024 End: 86-64-7306tfnpvzekezSEXVKCII D ZAHLERNot AvailableStart: 10-24-2024 End: 38-33-7045Yhrhhuu encounter Cortes Milian APRN.CNP Work Phone: UrologyComment on above:Benign prostatic hyperplasia, unspecified whether lower urinary tract symptoms present (Primary Dx); Weak urinary stream; BalanitisStart: 10-24-2024 End: 72-75-6295yuyamlfizeJOWQR D PIERSONFacility:[facility] Campustart: 10-06-2024 End: 22-74-3401hzqnprnpvoPqgnkhsg Ball DO Work Phone: [facility] Work Phone: Start: 10-06-2024 End: 32-21-7058Clqcdgu encounter procedureBenjamin Ball DO-[facility] Work Phone: Start: 37-39-1210Iou-patient / Non-visitBenjamin Ball DO-[facility] Work Phone: Start: 09-22-2024 End: 07-18-5654yrmhbntoqwGpbldzyd Ball DO Work Phone: [facility] Work Phone: Start: 09-22-2024 End: 80-30-1694Gjvbabos ReferredBenjamin Ball DO-LAB Path [facility] Start: 09-21-2024 End: 19-60-6650kjszorzfzlZpgugccz Ball DO Work Phone: [facility] Work Phone: Start: 09-21-2024 End: 19-41-5703Qgzecnm encounter procedureBenjamin Ball DO-[facility] Work Phone: Start: 08-14-2024 End: 45-58-3255cviqbygfmaYyxluhfxzOhioHealth [facility]ady [facility] Work Phone: Start: 08-14-2024 End: 21-38-2138Wgrwxiw [facility] Work Phone: Start: 07-05-2024 End: 86-24-3639rkbgaatbyfVrnnceoieOhioHealth Grady Memorial Hospital Work Phone: Start: 07-05-2024 End: 60-91-3166Haubbbv encounter procedureC[facility] Work Phone: Start: 05-22-2024 End: 19-47-1655dnnwssqpcsPjfisdxa Ball DO Work Phone: [facility] Work Phone: Start: 05-22-2024 End: 93-67-2755Mswqdgs encounter procedureBenjamin Ball DO Work Phone: [facility] Work Phone: Start: 95-25-7844Czp-patient / Non-visitBenjamin Ball DO Work Phone: [facility] Phys[facility] Work Phone: Start: 05-03-2024 End: 38-39-1485nyskubkjzpITZZE D PIERSONFacility:[facility] Campustart: 04-24-2024 End: 86-29-2098Ggudur-up encounterTermoses Milian APRN.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 Work Phone: UrologyStart: 04-24-2024 End: 55-36-1006tiytnkuuixNprwocwz Ball DO Work Phone: [facility] Work Phone: Start: 04-24-2024 End: 77-69-1721Zvgdkby encounter procedureBenjamin Ball DO Work Phone: [facility] Work Phone: start: 22-67-7977Dpt-patient / Non-visitBenjamin Ball DO Work Phone: [facility] Work Phone: Start: 04-21-2024 End: 27-79-6183qmfqpngxwlSCAMNLDL E BALLFacility:[facility] Campustart: 04-21-2024 End: 71-59-4858Quidosz encounter procedureLeticia Milian APRN.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 Work Phone: UrologyComment on above:Recurrent UTI (Primary Dx); Benign prostatic hyperplasia, unspecified whether lower urinary tract symptoms present; Weak urinary streamStart: 04-21-2024 End: 00-30-5218Lwlsvc flowsheetSterling Malhotrahler DO Work Phone: NOPN NB OPHTStart: 04-21-2024 End: 99-50-5836Lnyipb flowsheetSterling Sanderson Zahler DO Work Phone: noms NB OPHTStart: 04-21-2024 End: 87-25-3621npmtrkuyukISJGGGXP D ZAHLERNot AvailableStart: 92-84-6039Hrk- patient / Non-visitBemaria l Saavedra DO Work Phone: [facility] Work Phone: Start: 04-05-2024 End: 39-06-7317tzawccqlvwSyccknlx Quentin DO Work Phone: [facility] Work Phone: Start: 04-05-2024 End: 54-72-3021Kxqqzrr encounter procedureBenlylemin Quentin DO Work Phone: [facility] Work Phone: Start: 04-03-2024 End: 65-52-7061CkopovKuraaHanh Milian APRN.CNP Work Phone: UrologyComment on above:Refill RequestStart: 03-22-2024 End: 95-08-1792Wqhzbb Osmany Torres DO Work Phone: NOMS NB OPHTStart: 03-22-2024 End: 55-08-3264Smgyma flowsheetSterling Malhotrahlbrandon DO Work Phone: noMS NB OPHTStart: 03-22-2024 End: 60-18-8993qouikajbpsKMPPNFHO D ZAHLERNot AvailableStart: 03-20-2024 End: 47-56-1212hplrcqmnxeUrsijmgp Quentin DO Work Phone: [facility] Work Phone: Start: 03-20-2024 End: 34-28-0912Cdghoyv encounter procedureBenjamin Ball DO Work Phone: [facility] Work Phone: Start: 73-66-6232Jtl-patient / Non-visitBenjamin Ball DO Work Phone: [facility] GroupPrem[facility] Work Phone: Start: 03-14-2024 End: 46-14-8280btvupzmswpMvpliisc Ball DO Work Phone: [facility] Work Phone: Start: 03-14-2024 End: 51-79-8955Fgvmpdv encounter procedureBenjamin Ball DO Work Phone: [facility] Cardiology Work Phone: Start: 41-91-4814Fwx-patient / Non-visitBenjamin Ball DO Work Phone: [facility] Phys[facility] Work Phone: Start: 03-11-2024 End: 50-45-3114josxgpzxoaBratbuw PayFacility:[facility] Start: 03-11-2024 End: 91-84-4102Noqvuttc ReferredBenjamin Ball DO Work Phone: [facility]-LAB Path Spec [place] [facility] HospStart: 00-19-2803Nbt-patient / Non-visitBenjamin Ball DO Work Phone: [facility] GroupProv[facility] Work Phone: Start: 67-80-2641Kpl-patient / Non-visitBenjamin Ball DO Work Phone: [facility] Work Phone: Start: 02-11-2024 End: 82-68-7696ucojdldqvwDGFFDCZQ E BALLFacility:[facility] Campustart: 02-08-2024 End: 86-95-4561neqortgkurVXKEGKAR E BALLFacility:[facility] Campustart: 02-08-2024 End: 66-46-5946Pnpxlmg encounter Cortes Milian APRN.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 Work Phone: UrologyComment on above:Recurrent UTI (Primary Dx); Benign prostatic hyperplasia, unspecified whether lower urinary tract symptoms present; Incomplete bladder emptyingStart: 02-01-2024 End: 89-94-7611ywjmvzaljeThmsrvdzpTriHealth [facility] Work Phone: Start: 02-01-2024 End: 89-77-4784Yutyesm encounter procedureC[facility] Work Phone: Start: 63-58-3557Pkl-patient / Non-visitBenDetwiler Memorial Hospital DO Work Phone: [facility] Work Phone: Start: 15-19-3389Ziy-patient / Non-visitC[facility] Work Phone: Start: 11-95-3425Hqa-patient / Non-visitC[facility] Work Phone: Start: 12-28-2023 End: 08-67-5094uhtaxbmypgMcucmcjzcTriHealth Good [facility]ar[facility] Hospital Work Phone: Start: 12-28-2023 End: 83-90-1465Wefioaf encounter procedureC[facility] Work Phone: Start: 75-72-8499Qxpngbe encounter [facility] Hospitaltart: 12-17-2023 End: 29-98-2665Neyvgw Osmany Torres DO Work Phone: NOHG OPHTStart: 12-17-2023 End: 73-48-9710Xyrsiyyane Torres DO Work Phone: NOTX NB OPHTStart: 12-17-2023 End: 70-21-5993Fkxlmcfmm Result EncounterSterling Kin Charlottebrandon DO Work Phone: NOTX External Department UnsolicitedStart: 12-17-2023 End: 87-19-9434sbvhitqzxwHadtfdek ZahlerFacility:FTMCStart: 12-17-2023 End: 77-74-1249Jmttmef encounter procedureSterling Torres [facility] Start: 12-17-2023 End: 05-19-6515yxahhcwhufMEJJDJSOGlynn Mccollum AvailableStart: 12-15-2023 End: 25-88-9708ttuguyghzkJafgfqgyyOhioHealth Grady [facility] Hospital Work Phone: Start: 12-15-2023 End: 10-88-7032Uydnouv encounter procedureC[facility] Work Phone: Start: 09-23-2023 End: 68-21-7930htgzsffprvDS [facility] Work Phone: [facility] Work Phone: Start: 09-23-2023 End: 64-47-0505Htczhlw encounter procedureDO [facility] Work Phone: [facility] GroupPrem[facility] Work Phone: Start: 60-31-9664Pcf-patient / Non-visitDO [facility] Work Phone: [facility] Work Phone: Start: 08-04-2023 End: 71-96-7874Mjlmzkg encounter Cortes Milian APRN.[facility] Work Phone: UrologyComment on above:Benign prostatic hyperplasia, unspecified whether lower urinary tract symptoms present (Primary Dx); Recurrent UTI; NocturiaStart: 98-18-9846Pjh-patient / Non-visitDO Campbell Saavedra Work Phone: [facility] Work Phone: Start: 07-22-2023 End: 09-33-7868rrwhbnisvjWC Campbell Saavedra Work Phone: [facility] Work Phone: Start: 07-22-2023 End: 96-73-3301Fnsozcly ReferredDO Campbell Saavedra Work Phone: [facility]-LAB Path Spec [place] HospStart: 56-99-4943Vvd-patient / Non-visitDO Campbell Saavedra Work Phone: [facility] Work Phone: Start: 07-12-2023 End: 07-45-0476eobbklgtrfQA Campbell Saavedra Work Phone: [facility] Work Phone: Start: 07-12-2023 End: 47-37-4523Nuufouuz ReferredDO Campbell Saavedra Work Phone: [facility]ospStart: 07-09-2023 End: 61-55-4377ezdlgktzfvXP Campbell Saavedra Work Phone: [facility] Work Phone: Start: 07-09-2023 End: 18-75-0439Ictmjdy encounter procedureDO Campbell Saavedra Work Phone: [facility] Work Phone: Start: 93-50-2655Kuc-patient / Non-visitDO Campbell Saavedra Work Phone: [facility] Work Phone: Start: 06-23-2023 End: 18-67-2896kyezdanfinQU Campbell Saavedra Work Phone: [facility] Work Phone: start: 06-23-2023 End: 60-91-5898Xzckghm encounter procedureDO Campbell Saavedra Work Phone: [facility] Work Phone: Start: 64-75-2606Hhy-patient / Non-visitDO Campbell Saavedra Work Phone: [facility] Work Phone: Start: 05-21-2023 End: 58-16-2995Zrsiarc encounter procedureDO Campbell Saavedra Work Phone: [facility] Work Phone: Start: 05-15-2023 End: 70-81-1467Ofmgrtihd department patient visitDO Campbell Saavedra Work Phone: [facility]-Emergency Room Work Phone: Start: 08-21-7659Dvp-patient / Non-visitDO Campbell Saavedra Work Phone: [facility] Work Phone: Start: 93-39-5313Ypj-patient / Non-visitDO Campbell Saavedra Work Phone: [facility] Work Phone: Start: 04-21-2023 End: 33-51-9004xmmqcefeqoIltuvvoq Ball Other [facility] [employer] Other Start: 40-95-0279Oduwunekmund care manage srvc 14 day dischargeBenlylemin BallSAMANTHAG [facility] ClinicStart: 04-19-2023 End: 25-52-9954jmskgauukzOfkvuerd Ball Other noE[employer]on [employer] Other Start: 19-35-0777Qtqwevpxo encounterBenjamin BallFPG [facility] ClinicStart: 04-15-2023 End: 56-66-2011cjqlidjsagKbrhurmv Ball Other [employer] Other Start: 32-52-6204Uhygpwkcs encounterBenjachrystal Saavedra Medical ClinicStart: 03-17-2023 End: 06-96-3942cnqffairbhTvnbueos Ball Other [employer]Dec[employer] Other Start: 53-09-1838Kkfuwqnnfrpu care manage srvc 14 day dischargeBenjamin MandiG [facility] ClinicStart: 03-04-2023 End: 28-40-4477iwpxixzsvwQzrpvlcj Ball Other [employer] Other Start: 95-23-0219Jpcklfypz encounterBenjachrystal Saavedra Medical ClinicStart: 02-23-2023 End: 79-29-8692xlpdahbkwwGpetnsog Ball Other [employer] Other Start: 47-22-9318Qpwxxq outpatient visit 15 minutes Campbell [facility] ClinicStart: 20-39-9497Eeflkageu encounterBenjachrystal Saavedra Medical ClinicStart: 02-19-2023 End: 09-91-6501adioeiovwkQxmbbaef Ball Other [employer]Dec[employer] Other Start: 22-32-8658Pcdjee outpatient visit 15 minutes Campbell [facility] ClinicStart: 02-02-2023 End: 32-50-5842Yaqhxvn encounter procedureLeticia Milian APRN.[facility] Work Phone: UrologyComment on above:BPH with obstruction/lower urinary tract symptoms (Primary Dx); Recurrent UTI; Weak urinary streamStart: 01-13-2023 End: 68-07-3044Fgogaqwiy department patient visitDO Campbell Saavedra Work Phone: [facility] Work Phone: Start: 12-21-2022 End: 58-73-2867coxjfkqcfvCgzzdshz Ball Other [employer] Other Start: 61-41-3635Cdmegsqwp encounterBenjamin BallFPG [facility] ClinicStart: 09-22-2022 End: 29-30-4003iwthtdpcqhKluhoryt Ball Other [employer] Other Start: 19-05-8633Onitlp outpatient visit 15 minutes Campbell BallFPG [facility] ClinicStart: 09-20-2022 End: 01-58-9825tdsotmpmubCuau Baptiste Other noEpyon [employer] Other start: 27-76-7090Gdlgbgrfa by computer [facility] NeurosurgeryStart: 09-17-2022 End: 62-33-6641swxclkscvxTjdpkdbh Ball Other noEpyon [employer] Other Start: 88-46-4074Dbkaow outpatient visit 25 minutes Campbell BallFPG [facility] ClinicStart: 09-15-2022 End: 96-98-6364woxbidyblvCzev Baptiste Other [employer] Other start: 31-67-1641Dxdaahefy by computer [facility] NeurosurgeryStart: 06-25-2022 End: 89-79-7102blkvgpgpyfBW CAMPBELL BALLFacility:J0Ydjrb: 06-18-2022 End: 97-37-3843fmtrllrrjlBqpmzxmo Ball Other [employer]Dec[employer] Other Start: 17-20-9552Bmjakw outpatient visit 25 minutes Campbell BallFPG [facility] ClinicStart: 06-02-2022 End: 54-16-2802quaxnqqizrHQ CAMPBELL BALLFacility:K1Haqvr: 04-08-2022 End: 10-43-6243wyrcuofdmgNlhpaiaf Ball Other [employer] Other Start: 01-67-7162Gieypg outpatient visit 15 minutes Campbell [facility] ClinicStart: 03-24-2022 End: 41-17-6337kmlcxirxykSmnuucda Ball Other [employer] Other Start: 57-41-3255Kcanivpzb encounterBenmonika [facility] Medical ClinicStart: 30-68-6380Jjzmct outpatient visit 25 minutesBemaria l [facility] ClinicStart: 03-20-2022 End: 42-85-7966tgvpvxxoygSM CAMPBELL SAAVEDRALiberty [employer] Other Start: 01-08-2022 End: 35-14-2413Luaagps encounter procedureLeonard Dugan MD Work Phone: UrologyComment on above:Chronic epididymitis (Primary Dx); Left hydrocele; Weak urinary stream; BPH without obstruction/lower urinary tract symptoms; EpididymitisStart: 15-19-2563WtzpmzWlce Susan MD Work Phone: UrologyComment on above:Refill RequestStart: 12-26-2021 End: 08-67-3733lhlxzkmrbxTT Campbell Saavedra Work Phone: [facility] Work Phone: Start: 12-26-2021 End: 13-10-5207Ngbxuxshaz RecurringDO Campbell Saavedra Work Phone: [facility]-Infusion Therapy - O/P Start: 12-25-2021 End: 06-78-0101qmlafsjdkjMC CAMPBELL SAAVEDRAFacility:C8Crdcz: 12-17-2021 End: 33-55-3355Flpuyoexl department patient visitDO Campbell Saavedra Work Phone: [facility]-Emergency RoomStart: 12-16-2021 End: 44-92-8600Pxoqzfk encounter procedureLeonard Dugan MD Work Phone: UrologyComment on above:Retention of urine (Primary Dx); Flaccid bladderStart: 06-62-5601Scaauhwgu encounterLeticia Milian APRN.CNP Work Phone: UrologyComment on above:Patient UpdateStart: 12-11-2021 End: 59-12-1017Kpouueqcj department patient visitDO Campbell Saavedra Work Phone: [facility]-Emergency RoomStart: 89-13-1521Tbmfuqldg encounterLeonard Dugan MD Work Phone: UrologyComment on above:Patient UpdateStart: 12-10-2021 End: 43-93-6992Iodplqf evaluation of patient and reportNurse Urol [facility] Work Phone: UrologyComment on above:Urinary tract infection without hematuria, site unspecified (Primary Dx); Feeling of incomplete bladder emptying; Benign prostatic hyperplasia with urinary retentionStart: 12-09-2021 End: 11-38-5832Hbxvcuo evaluation of patient and reportUrodynamics [place] Work Phone: UrologyComment on above:Urinary frequency (Primary Dx); Urinary urgency; Urinary straining; Feeling of incomplete bladder emptyingStart: 78-63-8887Ukdohehzc encounterLeonard Dugan MD Work Phone: UrologyComment on above:Appointment (Reschedule catheter change)Start: 11-26-2021 End: 90-91-2295Xkgupemwz department patient visitBEMARIA L SAAVEDRAFacility:[facility] HospitalStart: 98-71-1107Pnmbuscoa encounterLeonard Dugan MD Work Phone: UrologyComment on above:Smith Cath Problem; Hematuria Start: 11-19-2021 End: 01-10-4262njivvxmdytLX ROBIN BAPTISTEFacility:R7Ahyfk: 11-12-2021 End: 31-83-8956Uexeknf encounter procedureLeonard Dugan MD Work Phone: UrologyComment on above:BPH with obstruction/lower urinary tract symptoms (Primary Dx); Benign prostatic hyperplasia with urinary retentionStart: 61-18-3816Znilr Rowdy Dugan MD Work Phone: UrologyStart: 11-07-2021 End: 17-34-7276Kzprvkizx department patient visitROBERT Yeison [place] JRFacility:Atwny HospitalStart: 10-23-2021 End: 00-00-2815gkpgpeybtnJT CAMPBELL BALLFacility:O9Agooe: 10-21-2021 End: 68-12-0307dflfkfohkbZI CAMPBELL SAAVEDRAFacility:T6Uqhwi: 78-41-8447Mgoon health examinationCampbell Saavedra Other [employer] Other Start: 07-17-2021 End: 11-74-7739eexrqvzkyzPG CAMPBELL SAAVEDRAFacility:V3Fjkyr: 01-09-2020 End: 64-14-7742Fav-procedure evaluation checkCampbell Saavedra Other [employer] Other Procedures DateProcedureProcedure DetailPerforming ClinicianStart: 23-89-0534Gyzctjkusbao ophthalmic imaging optic nerveJoluis alfredo Torres DO Work Phone: Start: 11-20-2024 End: 97-08-4417Jmxlr medical xm&eval comprhnsv estab pt 1/>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 of both eyesSterling Torres DO Work Phone: comment on above:Intermediate stage nonexudative age- related macular degeneration of both eyes (Primary Dx); Optic atrophy; 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); Dry eyes; Blepharitis of upper and lower eyelids of both eyes, unspecified typeStart: 98-40-6826Akegc cultureCampbell Saavedra DO Work Phone: Start: 04-21-2024 End: 95-05-9271Rznws medical xm&eval intermediate estab ptRefractive error Sterling Torres DO Work Phone: comment on above:Refractive error (Primary Dx)Start: 26-63-3652Eulqgndbgami ophthalmic imaging optic nerveSterling Torres DO Work Phone: Start: 42-29-7152Aqnami field xm uni/bi w/interp extended examSterling Torres DO Work Phone: Start: 03-22-2024 End: 73-00-5632Aquoe medical xm&eval intermediate estab ptOptic atrophySterling Torres DO Work Phone: comment on above:Optic atrophy (Primary Dx); Dry eyes; 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 of both eyes; 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 2 diabetes mellitus (CMS/HCC); Blepharitis of upper and lower eyelids of both eyes, unspecified typeStart: 91-82-5514Cmdsn cultureBenjaNear Infinity Ball DO Work Phone: Start: 50-32-5917Oyzqqcmg identified in Urine by CultureConsorte MedianTRA DO Work Phone: Start: 12-17-2023 End: 80-54-9871Qasfqwuqffhj ophthalmic imaging optic nerveSterling Torres DO Work Phone: Start: 13-58-6712AHTB PLATELET COUNTJoluis alfredo Torres DO Work Phone: Start: 12-17-2023 End: 73-38-8907Zwzcu medical xm&eval comprhnsv estab pt 1/>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 2 diabetes mellitus (CMS/HCC)Sterlingluis alfredo Torres DO Work Phone: comment on above: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 2 diabetes mellitus (CMS/HCC) (Primary Dx); 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 of both eyes; Optic atrophy; Dry eyes; Blepharitis of upper and lower eyelids of both eyes, unspecified typeStart: 91-12-1726RcnfiyigvtPE Campbell Saavedra Work Phone: Start: 79-59-8477Bfocc cultureDGemini Saavedra Work Phone: Start: 09-59-0782Oshcqb scan of lower limb veinsDO Campbell Saavedra Work Phone: Start: 48-20-9752Mtmqhmlerk screeningBenmonika Saavedra Other Start: 49-81-1156Prjhydmihetno prostatectomySterling Torres Start: 65-66-0169Gtqzrrjeptsfm prostatectomyJoluis alfredo Torres Start: 65-88-0945Fnegmhussoiilbqsj with dilation of urethral strictureJoluis alfredo Torres Start: 18-20-9372Szzcefmpn for malignant neoplasm of colonBenmonika Saavedra Other Start: 13-06-1739Vcgivvnrz for malignant neoplasm of prostateBenmonika Saavedra Other AppendectomyJoluis alfredo Torres Extraction of cataractJoluis alfredo Torres TonsillectomySterling NewCellnehal Urine Javid Saaverda Work Phone: Urine Javid Saavedra Work Phone: Urine Javid Saavedra Work Phone: Plan of Treatment DateCare ActivityDetailAuthorStart: 70-06-3952Gqusvsxt ScreeningDiabetes ScreeningWadsworth-Rittman Hospitaltart: 06-26-2025 End: 24-88-8531Kwlfrkz encounter yebejjjfc74/14/2026 1:30 PM EDT Office Visit Urology [address] [place], [place] [id number] Leticia Milian, INSURANCE EXAMINING CLERK.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 [address] [place] [address] Return in about 8 months (around 06/24/2025) for rto for evaluation of BPH w obs/luts, AUA, PVR.UrologyComment on above:Return in about 8 months (around 06/24/2025) for rto for evaluation of BPH w obs/luts, AUA, PVR.Start: 11-20-2024 End: 74-54-5687Bvopiic encounter procedureNOMS NB OPHTComment on above:Arrived Start: 68-65-5405Osfizfmje vaccinationInfluenza Vaccine (#1)[facility] Start: 10-24-2024 End: 34-36-8642Rbkuyra encounter sitbgnpfg56/12/2025 3:00 PM EDT Office Visit Urology [address] [place] [address] Leticia Milian, INSURANCE EXAMINING CLERK.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 [address] [place] [id number] 6 month follow upUrologyComment on above:6 month follow upStart: 09-22-2024 Bacteria identified in Urine by CultureUrine [facility] Main Campustart: 34-38-9671OkhcmPeoples Hospitaltart: 05-10-2024 End: 58-83-7638Hcoccqv encounter yrlhhnvoe66/26/2025 9:00 AM EST Office Visit Urology [address] [place] [address] Leticia Milian, INSURANCE EXAMINING CLERK.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 [address] [place] [phone] Return in about 3 months (around 05/10/2024) for rto for evaluation of BPH w obs/luts, AUA, PVR.UrologyComment on above:Return in about 3 months (around 05/10/2024) for rto for evaluation of BPH w obs/luts, AUA, PVR.Start: 04-21-2024 End: 05-82-5814Yyzgooy encounter horkrykpa87/07/2025 8:15 AM EST Office Visit [facility] [address] [place] [id number] Sterling Torres, [address] [place] [address] ArrivedNO NB OPHTComment on above:ArrivedStart: 03-22-2024 End: 28-15-9054Jfmvrxe encounter procedureNOMS OPHTComment on above:Arrived Start: 33-32-3687Payxnks Directive DiscussionAdvance Directive Discussion [facility]: 02-08-2024 End: 01-54-9222Esmzfwmw identified in Urine by CultureURINE CULTURE Microbiology Routine Recurrent UTI Expected: 02/08/2024, Expires: 05/09/2024[facility] Comment on above:Expected: 02/08/2024, Expires: 05/09/2024Start: 02-08-2024 End: 55-42-1752Tebueulkix complete panel - UrineURINALYSIS, WITH MICROSCOPIC Lab Routine Recurrent UTI Expected: 02/08/2024, Expires: 05/09/2024[facility] Work Phone: Comment on above:Expected: 02/08/2024, Expires: 05/09/2024Start: 02-08-2024 End: 81-54-5296Uwacmif encounter alcqhmown71/26/2024 8:30 AM EST Office Visit Urology [address] [place] [address] Leticia Milian, INSURANCE EXAMINING CLERK.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 [address] [place] [address] Return in about 6 months (around 02/04/2024) for rto for evalution of BPH w obs/luts, UTI AUA, PVR .UrologyComment on above:Return in about 6 months (around 02/04/2024) for rto for evalution of BPH w obs/luts, UTI AUA, PVR . Start: 32-01-4688Cpjaitv [facility] Work Phone: Start: 12-17-2023 End: 68-97-7245Hecwprt encounter egzkagpbt45/04/2024 9:30 AM EDT Office Visit NOMYeison [facility]ERS OP[facility] [address] [place] [address] Sterling Torres DO [address] [place] [address] ArrivedNOMS NB OPHTComment on above:ArrivedStart: 68-32-0400Oerom-19 Vaccine ()Covid-19 Vaccine ()[facility]: 76-53-5378Yaqyzvyvq vaccinationInfluenza Vaccine (#1)[facility] HealthcareStart: 61-02-6863Ulujogr Directive DiscussionAdvance Directive DiscussionWadsworth-Rittman Hospitaltart: 14-02-2679Lqmbcvqwao Health Screening Behavioral Health ScreeningWadsworth-Rittman Hospitaltart: 25-11-0643Awsuw microalbumin profileDTaP,Tdap,Td Vaccine (3 - Tdap)[facility]: 03-51-5042Ljouu-19 Vaccine ( season)Covid-19 Vaccine ()[facility]: 14-59-8747Caiycad Directive DiscussionAdvance Directive Discussion [facility]: 47-63-7551Jebtkirjij AssessmentDepression Assessment [facility]: 01-08-2022 End: 51-42-9126Nnmewakp identified in Urine by CultureURINE CULTURE Microbiology Routine Left hydrocele Chronic epididymitis Weak urinary stream BPH without obstruction/lower urinary tract symptoms Epididymitis Expected: 01/08/2022 (Approximate), [facility] Work Phone: Comment on above:Expected: 01/08/2022 (Approximate), Expires: 03/10/2022tart: 01-08-2022 End: 86-18-6851ZQWYBHDAHY, REFLEX MICROSCOPICURINALYSIS, REFLEX MICROSCOPIC Lab Routine Left hydrocele Chronic epididymitis Weak urinary stream BPH without obstruction/lower urinary tract symptoms Epididymitis Expected: 01/08/2022 (Approximate), [facility]: [facility] Work Phone: Comment on above:Expected: 01/08/2022 (Approximate), Expires: 03/10/2022tart: 12-10-2021 End: 53-24-1145Empqvbij identified in Urine by CultureURINE CULTURE Microbiology Routine Urinary tract infection without hematuria, site unspecified Expected: 12/10/2021, Expires: 02/09/2022[facility] Work Phone: Comment on above:Expected: 12/10/2021, Expires: 02/09/2022tart: 54-74-2910Iszzhtrsa vaccinationINFLUENZA (#1)[facility] Start: 28-64-1744HIZHNNMTILOFIPXVDMJLUF Procedures Routine 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 Expected: 11/12/2021 (Approximate)[facility] Work Phone: Comment on above:Expected: 11/12/2021 (Approximate) Start: 65-24-6584PERSJ-19 VACCINE (5 - Booster for Pfizer series)COVID-19 VACCINE (5 - Booster for Pfizer series)[facility]: 81-15-8979ZELWYGB DIRECTIVE DISCUSSIONADVANCE DIRECTIVE DISCUSSIONCleAccess Hospital Daytontart: 70-04-3972IZBWXDTTIG ASSESSMENTDEPRESSION ASSESSMENTWadsworth-Rittman Hospitaltart: comp foot exam completedDIABETIC FOOT EXAMWadsworth-Rittman Hospitaltart: 39-57-8028Nbsvueonjyar Vaccine: 65+ Years (2 of 2 - PCV)Pneumococcal Vaccine: 65+ Years (2 of 2 - PCV)[facility] HealthcareStart: 01-01-2004Medicare Annual Wellness VisitMedicare Annual Wellness VisitWadsworth-Rittman Hospitaltart: 41-08-9128Hexqfgutg B Vaccine (1 of 3 - Risk 3-dose series)Hepatitis B Vaccine (1 of 3 - Risk 3-dose series)[facility]: 16-33-2449ZMY Vaccine (1 - 1-dose 60+ series)RSV Vaccine (1 - 1-dose 60+ series)[facility]: 66-27-3829CMUELDHS VACCINE (1 of 2)SHINGRIX VACCINE (1 of 2)[facility]: 81-99-4239Nkiss microalbumin profileDTAP,TDAP,TD (1 - Tdap)[facility]: 1958 Anxiety ScreeningAnxiety ScreeningWadsworth-Rittman Hospitaltart: 50-52-0572Jautlfamjm ScreeningDepression ScreeningWadsworth-Rittman Hospitaltart: 56-95-0395Alpxrhhzr B surface antibody levelLDL CHOLESTEROLWadsworth-Rittman Hospitaltart: 51-73-9870Kawoeyvbh B screeningURINE ALBUMIN:CREATININE RATIOWadsworth-Rittman Hospitaltart: 1950 Hepatitis C antibody, confirmatory testDILATED RETINAL EXAMMercy Health [facility] Start: 97-64-8431ZLKZBHZFMAZT: 65+ (1 - PCV)PNEUMOCOCCAL: 65+ (1 - PCV)[facility]: 70-24-0157Rtgodiodpl A1c/Hemoglobin.total in LgxiySVB8SGtmieflnb ClinicBacteria identified in Urine by CultureKettering Health End: 73-74-3561Xbdidslg identified in Urine by CultureURINE CULTURE Microbiology Routine Recurrent UTI 5 Occurrences starting 02/02/2023 until 02/02/2024 [facility] Work Phone: Comment on above:5 Occurrences starting 02/02/2023 until 02/02/2024 End: 38-96-8956Ptwjpxez identified in Urine by CultureBACTERIAL CULTURE, URINE Microbiology Routine Recurrent UTI 5 Occurrences starting 04/21/2024 until 6C[facility] ClinicComment on above:5 Occurrences starting 04/21/2024 until 6Bacteria identified in Urine by CultureBACTERIAL CULTURE, URINE Microbiology Routine Recurrent UTI 04/21/2024 4:36 PM [facility] Comprehensive metabolic 2000 panel - Serum or PlasmaKettering HealthHolter monitor studyKettering HealthPatient Education [facility] Work Phone: Patient referralBrecksville Va / [facility] Work Phone: Thyroperoxidase Ab [Units/volume] in Serum or Plasma [facility] End: 33-79-3237Ewtznzfbgd complete panel - UrineURINALYSIS, WITH MICROSCOPIC Lab Routine Recurrent UTI 5 Occurrences starting 02/02/2023 until 01/14/2024 [facility] Work Phone: Comment on above:5 Occurrences starting 02/02/2023 until 01/14/2024 End: 90-11-9937Mnidbaapfm complete panel - UrineURINALYSIS, WITH MICROSCOPIC Lab Routine Recurrent UTI 5 Occurrences starting 04/21/2024 until 04/15/2025 [facility] Work Phone: Comment on above:5 Occurrences starting 04/21/2024 until 04/15/2025Urinalysis complete panel - UrineURINALYSIS, WITH MICROSCOPIC Lab Routine Recurrent UTI 04/21/2024 4:36 PM [facility] [place] Immunizations Immunization DateImmunizationNotesCare SqtlqrceGhterbdx87-72-0434xajucvlyh, high dose seasonal, preservative-freeKettering Health10-02-2024 influenza virus vaccine, unspecified formulationLeticia Milian APRN.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 Work Phone: [facility] HospitalFeirlj26-93-6345JVP, preF3, adj, pfBenjamin Ball DO Work Phone: [facility]09-19-2023influenza virus vaccine, unspecified formulationDO Campbell Saavedra Work Phone: [facility]09-19-2023influenza, high dose seasonal, preservative-freeBenjamin Quentin Other [employer] Other 825512-50-1461Tsmujvtqj vaccine, quadrivalent, adjuvanted Campbell Saavedra DO Work Phone: [facility]10-07-2022influenza virus vaccine, split virus (incl. purified surface antigen)Campbell Saavedra Other [employer] Other [id number] virus vaccine, unspecified formulationDO Campbell Saavedra Work Phone: [facility]10-06-2022COVID-19 mRNA Bivalent Booster (Pfizer)Campbell Saavedra DO Work Phone: [facility]04-04-2022COVID-19 Comirnaty (Pfizer) Tri-Sucrose 12+Campbell Saavedra DO Work Phone: [facility]09-28-2021influenza virus vaccine, split virus (incl. purified surface antigen)Campbell Saavedra Other [employer] Other [id number] virus vaccine, unspecified formulationDO Campbell Saavedra Work Phone: [facility]09-27-2021COVID-19 mRNA, Comirnaty (Pfizer)Campbell Saavedra DO Work Phone: [facility]09-27-2021Fluzone QIV High-Dose 65YR+Campbell Saavedra DO Work Phone: [facility]02-19-2021COVID-19 mRNA, Comirnaty (Pfizer)Campbell Saavedra DO Work Phone: [facility]01-25-2021COVID-19 mRNA, Comirnaty (Pfizer)Campbell Saavedra DO Work Phone: [facility]10-27-2020influenza virus vaccine, split virus (incl. purified surface antigen)Campbell Saavedra Other [employer] Other [id number] virus vaccine, unspecified formulationDO Campbell Saavedra Work Phone: [facility]10-27-2020Seasonal trivalent influenza vaccine, adjuvanted, preservative freeBenjachrystal Saavedra DO Work Phone: [facility]11-11-2019influenza virus vaccine, live, attenuated, for intranasal useJoluis alfredo Torres [facility]11-01-2019zoster vaccine recombinantBenjamin Ball DO Work Phone: [facility]08-23-2019zoster vaccine recombinantBenjamin Ball DO Work Phone: [facility]11-02-2018influenza virus vaccine, split virus (incl. purified surface antigen)Campbell Saavedra Other [facility] [employer] Other 605813-21-9185ofjakodwl virus vaccine, unspecified formulationDO Campbell Saavedra Work Phone: [facility]11-02-2018Seasonal trivalent influenza vaccine, adjuvanted, preservative freeBenjamin indoo.rs DO Work Phone: [facility]09-24-2018influenza, injectable, quadrivalent, preservative freeBenjamin Quentin DO Work Phone: [facility]10-18-2017influenza virus vaccine, split virus (incl. purified surface antigen)Campbell Saavedra Other [employer] Other 10269282-95-7436jblexxitr virus vaccine, unspecified formulationDO Campbell Saavedra Work Phone: [facility]01-02-2017influenza virus vaccine, split virus (incl. purified surface antigen)Campbell Saavedra Other [employer] Other [id number] virus vaccine, unspecified formulationDO Campbell Saavedra Work Phone: [facility]02-17-2016 pneumococcal conjugate vaccine, 13 valentBenjachrystal Saavedra Other [facility]02-17-2016 pneumococcal Conjugate, unspecified formulation; Translations: [Need for prophylactic vaccination against Streptococcus pneumoniae (pneumococcus)] Campbell Saavedra Other [facility] [employer] Other 490346-38-4253atjrhrk and diphtheria toxoids, adsorbed, preservative free, for adult use (5 Lf of tetanus toxoid and 2 Lf of diphtheria toxoid)Campbell Saavedra Other [facility]11-15-2012diphtheria, tetanus toxoids and acellular pertussis vaccine, unspecified formulationBenmonika Saavedra Other [facility]11-07-2012 pneumococcal polysaccharide vaccine, 23 valentBenmonika Saavedra Other [facility]03-05-2012 pneumococcal polysaccharide vaccine, 23 valentBenmonika Saavedra Other [facility] Payers DatePayer CategoryPayerPolicy [id number] ANTHEM MEDICARE SUPPLEMENT [id number] 2016-Present [phone] [address] [place] [address] [id number] [id number] 1960Medicare [id number] [id number] [id number] 2.840.1.356993.3.57[id number] 2..840.1.432568.3.57[id number] 2.16.840.1.890550.3.57[id number] 2.840.1.341027.3.57[id number] 2.16.840.1.481885.3.57[id number] 2.16.840.1.638042.3.579.2.15792-10-7119Uxybqyj1600612 2.16840.1.923549.3.57[id number] 2.16.840.1.688208.3.57[id number] 2.840.1.447051.3.57[id number] 2.840.1.906210.3.579.[id number] 2.0.1.897039.3.57[id number] 2.840.1.220114.3.57[id number] 2.840.1.719507.3.579.2.1259MedicareMedicare [id number] National [employer] [id number]-[id number]-[id number] 2.840.1.8[id number] 2.0.1.736572.3.579.2.531 [id number] 2.0.1.028263.3.579.2.531 Social History DateTypeDetailFacilityStart: 10-24-2009 End: 01-70-1682Jybjfkt smoking status NHISEx-smokerWadsworth-Rittman Hospitaltart: 03-15-1959 End: 07-37-3516Gqmldiu of tobacco useCurrent smokerWadsworth-Rittman Hospitaltart: 03-15-1959 End: 19-75-3764Gcqujvv of tobacco useCigarette SmokerWadsworth-Rittman Hospitaltart: 10-24-2009 End: 93-29-9827Djreekebvy smoked current (pack per day) - Reported1.5[facility] ClinicStart: 11-07-2021 End: 11-49-9366Btbawke intakeCurrent drinker of alcohol (finding)[facility]: 54-49-2275Cxl Assigned At [facility] HospitalNot on fileWadsworth-Rittman Hospitaltart: 10-28-2021 End: 81-99-8692Bicrdwfz to SARS-CoV-2 (event)Not sureWadsworth-Rittman Hospitaltart: 12-11-2021 End: 43-60-2931Dmtgkmp smoking status NHISNever smoked tobacco (finding) [facility]: 33-91-9110Gqz Assigned At [facility]: 12-16-2021 End: 74-73-1852Qjnwjeo use and exposureSmokeless tobacco non-userWadsworth-Rittman Hospitaltart: 12-16-2021 End: 95-17-5780Csm Assigned At [facility] Hospitaltart: 71-27-9383Seltadrp Score (1-100), lower number is lower kbky85EkytonorcMercy Health Urbana Hospital Start: 63-24-4935Uikweqe Comment2-3 times a week.[facility] HealthcareStart: 70-40-4995Dvauns orientationHeterosexual (finding)[facility] HealthcareStart: 02-01-2024 End: 89-13-6112OdnMgys (finding)[facility] Procedure CodeEquipment CodeEquipment Original TextEquipment IdentifierDates [id number], [id number]: 10-23-2021 End: 92-03-3337Tnwsvvm on above:TEST HOME BLOOD SUGAR ONCE A DAYUSE TO TEST HOME BLOOD SUGAR ONCE A DAY Clinical Notes 11-10-2021 to 11-20-2024 Note Date & QakgIqcaEjbccfsp50-48-8643 History of Present illness Narrative* Sterling Torres DO - 11/20/2024 1:30 PM EDT Images from the original note were [...] lid scrubs were recommended. documented in this encounterDoctors Hospital of SpringfieldIanqygjfqb97-46-3710 NoteHNO ID: [id number] Author: LETICIA MILIAN APRN.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 Service: ? Author Type: Nurse Practitioner Type: Progress Notes Filed: 10/24/2024 15:38 Note Text: Norberto [place] [address] [facility] [address] HISTORY OF PRESENT ILLNESS: Seen 04/21/24 for BPH w obs/luts, UTI C/O of burning with urination for about 1 wk Denies gross hematutia Drink 50 oz water day Drink 1 quart coffee day and Drink Drink 1 cup water Denies issues with BM ROSAMARIA 11/10/21 - 10 gm, rubbery, no nodules AUA=15 QOL 4 PVR=34 ML cysto 11-12-21 = 2.5 cm NON [...] BPH w obs/luts, UTI (new finding today 10/24/24) Denies gross hematutia Denies burning with urination Pt stated have moisture in underwear pt wear there ones with padding build in will trial disposable padding. Pt stated that only take stool softener if no BM in 2-3 days encourage to take consistant. Pt noted skin irritation with burning note at head of foreskin HVC=217 ML Location: BPH w obs/luts, UTI Pain Character: none Severity Scale: see AUA score, see lab Duration: BPH w obs/luts, UTI [employer] SYMPTOMS SCORE. 1. INCOMPLETE EMPTYING 1 2. FREQUENCY 1 3. INTERMITTENCY 3 4. URGENCY 0 5. WEAK STREAM 1 6. STRAINING 1 7. NOCTURIA 3 TOTAL SCORE 10 QOL 2 No past medical history on file. No past surgical history on file. No family history on file. Social History Tobacco Use Smoking status: Former Current packs/day: 0.00 Average packs/day: 1.5 packs/day for 14.0 years (21.0 ttl pk-yrs) Types: Cigarettes Start date: 03/15/1959 Quit date: 03/15/1971 Years since quittin.6 Smokeless tobacco: Never Substance Use Topics Alcohol use: Yes Comment: social MEDICATIONS: Current Outpatient Medications Medication Sig tamsulosin (FLOMAX) 0.4 mg Take 1 capsule by mouth two times a day. TURMERIC ORAL Take by mouth. multivitamin (MULTIPLE VITAMINS ORAL) Take by mouth. apixaban (ELIQUIS) 2.5 mg tab(s) 5 mg two times a day. metoprolol succinate ER (TOPROL XL) 25 mg 24 hr tablet Take 1 tablet by mouth every afternoon. vit A/vit C/vit E/zinc/copper (PRESERVISION AREDS ORAL) Take by mouth. aspirin 81 mg cap Aspirin Active 81 [...] Take 20 mg by mouth once daily. (Patient taking differently: Take 5 mg by mouth once daily.) doxycycline hyclate (VIBRAMYCIN) 100 mg capsule (Patient [...] from the gums. PHYSICAL EXAM: VITALS: BP (!) 114/49 Pulse 62 Wt 99.8 kg (220 lb) BMI 27.50 kg/m? GENERAL: Alert, oriented and in no distress. HEAD: Conjuctiva: no palor Sclera: no jaundice NECK: No enlarged thyroid, no palpable lymph nodes, and no engorged neck veins. CHEST: Bilateral symetrical, resp easy non labored ABDOMEN: Soft, non tender with no masses or organomegaly. No CVA tenderness. EXTREMITIES: No leg edema, No joint swelling GENITALIA: foreskin pulled back with ease and head of penis is clean will stop clotrimazole cre (more content not included)...[facility] 10-24-2024 History of Present illness Narrative* Leticia Milian, INSURANCE EXAMINING CLERK.[facility] - 10/24/2024 3:01 PM EDT Norberto Mccoy [place] [address] [facility] [address] HISTORY OF PRESENT ILLNESS: Seen 04/21/24 for BPH w obs/luts, UTI C/O of burning with urination for about 1 wk Denies gross hematutia Drink 50 oz water day Drink 1 quart coffee day and Drink Drink 1 cup water Denies issues with BM ROSAMARIA 11/10/21 - 10 gm, rubbery, no nodules AUA=15 QOL 4 PVR=34 ML cysto 11-12-21 = 2.5 cm NON [...] BPH w obs/luts, UTI (new finding today 10/24/24) Denies gross hematutia Denies burning with urination Pt stated have moisture in underwear pt wear there ones with padding build in will trial disposablepadding. Pt stated that only take stool softener if no BM in 2-3 days encourage to take consistant. Pt noted skin irritation with burning note at head of foreskin EWG=782 ML Location: BPH w obs/luts, UTI Pain Character: none Severity Scale: see AUA score, see lab Duration: BPH w obs/luts, UTI [employer] SYMPTOMS SCORE. 1. INCOMPLETE EMPTYING 1 2. FREQUENCY 1 3. INTERMITTENCY 3 4. URGENCY 0 5. WEAK STREAM 1 6. STRAINING 1 7. NOCTURIA 3 TOTAL SCORE 10 QOL 2 No past medical history on file. No past surgical history on file. No family history on file. Social History Tobacco Use Smoking status: Former Current packs/day: 0.00 Average packs/day: 1.5 packs/day for 14.0 years (21.0 ttl pk-yrs) Types: Cigarettes Start date: 03/15/1959 Quit date: 03/15/1971 Years since quittin.6 Smokeless tobacco: Never Substance Use Topics Alcohol use: Yes Comment: social MEDICATIONS: Current Outpatient Medications Medication Sig tamsulosin (FLOMAX) 0.4 mg Take 1 capsule by mouth two times a day. TURMERIC ORAL Take by mouth. multivitamin (MULTIPLE VITAMINS ORAL) Take by mouth. apixaban (ELIQUIS) 2.5 mg tab(s) 5 mg two times a day. metoprolol succinate ER (TOPROL XL) 25 mg 24 hr tablet Take 1 tablet by mouth every afternoon. vit A/vit C/vit E/zinc/copper (PRESERVISION AREDS ORAL) Take by mouth. aspirin 81 mg cap Aspirin Active 81 [...] Take 20 mg by mouth once daily. (Patient taking differently: Take 5 mg by mouth once daily.) doxycycline hyclate (VIBRAMYCIN) 100 mg capsule (Patient [...] from the gums. PHYSICAL EXAM: VITALS: BP (!) 114/49 Pulse 62 Wt 99.8 kg (220 lb) BMI 27.50 kg/m GENERAL: Alert, oriented and in no distress. HEAD: Conjuctiva: no palor Sclera: no jaundice NECK: No enlarged thyroid, no palpable lymph nodes, and no engorged neck veins. CHEST: Bilateral symetrical, resp easy non labored ABDOMEN: Soft, non tender with no masses or organomegaly. No CVA tenderness. EXTREMITIES: No leg edema, No joint swelling GENITALIA: foreskin pulled back with ease and head of penis is clean will stop clotrimazole cream and use only if balanitis flares IMPRESSION: (Diagnostic Possibilities): -balanitis on clotrimazole and betamethasone cream -L epididymitis (resolved) -Weak Urinary Stream (improved with flomax) -BPH without obstruction on flomax -LIOR -DM -UTI TURP around 2018 outside Urology PLAN: (Management Options): AUA, PVR today Trial bacitracin ointment OTC clotrimazole and betamethasone cream by PCP Cont increase water intake Encourage good BM regulation with stool softener and fiber Standing order for urine place will get only if symptomatic Cont flomax to BID Rto 8 months for evaluation of BPH w obs/luts, AUA, PVR PRN if symptomatic Medical Decision Making: Problems: Moderate: 2+ stable chronic illnesses Data: Unique test result(s) reviewed: 1 Risk: Low: Low risk from testing/treatment Medical Decision Making Level: 3 - Low Leticia Milian APRN.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 documented in this encounterMer[facility] Evaluation note* Diagnosis Onset Date Resolution Status Admit Date Balanitis acuteJuly 2024 9:11amChronic kidney diseaseacuteJuly 2024 9:11am Chronic venous insufficiency of lower extremityacuteJuly 2024 9:11am DysuriaacuteJuly 2024 9:11amHTN (hypertension)acuteJuly 2024 9:11am Subclinical hypothyroidismacuteJuly 2024 9:11amType 2 diabetes mellitus with diabetic polyneuropathyacuteJuly 2024 9:11amType 2 diabetes mellitus with hyperglycemiaacuteJuly 2024 9:11amAnemiaacuteJuly 2024 8:23am Aortic stenosis, mildacuteJuly 2024 8:23amAtrial flutteracuteJuly 2024 8:23amChronic kidney diseaseacuteJuly 2024 8:23amChronic venous insufficiency of lower extremityacuteJuly 2024 8:23amElevated cholesterol acuteJuly 2024 8:23amHTN (hypertension)acuteJuly 2024 8:23am Subclinical hypothyroidismacuteJuly 2024 8:23amType 2 diabetes mellitus with diabetic polyneuropathyacuteJuly 2024 8:23amType 2 diabetes mellitus with hyperglycemiaacuteJuly 2024 8:23am [facility] Work Phone: 1(539) 507-184906-02-2025 Evaluation note* Diagnosis Onset Date Resolution Status Admit Date Aortic stenosis, mild acuteJune 2024 10:12amAtrial flutteracuteJune 2024 10:12amHTN (hypertension)acuteJune 2024 10:12amSubclinical hypothyroidismacuteJune 2024 10:12amBalanitisacuteJuly 2024 9:11amChronic kidney diseaseacute Sho 2024 9:11amChronic venous insufficiency of lower extremityacuteJuly 2024 9:11amDysuriaacuteJuly 2024 9:11amHTN (hypertension)acuteJuly 2024 9:11amSubclinical hypothyroidismacuteJuly 2024 9:11amType 2 diabetes mellitus with diabetic polyneuropathyacuteJuly 2024 9:11amType 2 diabetes mellitus with hyperglycemiaacuteJuly 2024 9:11amAnemiaacuteJuly 2024 8:23amAortic stenosis, mildacuteJuly 2024 8:23amAtrial flutter acuteJuly 2024 8:23amChronic kidney diseaseacuteJuly 2024 8:23am Chronic venous insufficiency of lower extremityacuteJuly 2024 8:23am Elevated cholesterolacuteJuly 2024 8:23amHTN (hypertension)acuteJuly 2024 8:23amSubclinical hypothyroidismacuteJuly 2024 8:23amType 2 diabetes mellitus with diabetic polyneuropathyacuteJuly 2024 8:23amType 2 diabetes mellitus with hyperglycemiaacuteJuly 2024 8:23am [facility] Work Phone: 1(670) 655-972104-23-2025 Evaluation note* Diagnosis Onset Date Resolution Status Admit Date Aortic stenosis, mild acuteApril 2024 9:28amAtrial flutteracuteApril 2024 9:28amChronic kidney diseaseacuteApril 2024 9:28amChronic venous insufficiency of lower extremityacuteApril 2024 9:28amElevated cholesterolacuteApril 2024 9:28amHTN (hypertension)acuteApril 2024 9:28amSubclinical hypothyroidism acuteApril 2024 9:28amType 2 diabetes mellitus with diabetic polyneuropathyacuteApril 2024 9:28amType 2 diabetes mellitus with hyperglycemiaacuteApril 2024 9:28amAortic stenosis, mildacuteJune 2024 10:12amAtrial flutteracuteJune 2024 10:12amHTN (hypertension)acuteJune 2024 10:12amSubclinical hypothyroidismacuteJune 2024 10:12amBalanitis acuteJuly 2024 9:11amChronic kidney diseaseacuteJuly 2024 9:11am Chronic venous insufficiency of lower extremityacuteJuly 2024 9:11am DysuriaacuteJuly 2024 9:11amHTN (hypertension)acuteJuly 2024 9:11am Subclinical hypothyroidismacuteJuly 2024 9:11amType 2 diabetes mellitus with diabetic polyneuropathyacuteJuly 2024 9:11amType 2 diabetes mellitus with hyperglycemiaacuteJuly 2024 9:11am [facility] Work Phone: 1(244) 891-471603-10-2025 Evaluation note* Diagnosis Onset Date Resolution Status Admit Date HTN (hypertension) acuteMarch 2024 9:46amAortic stenosis, mildacuteApril 2024 9:28am Atrial flutteracuteApril 2024 9:28amChronic kidney diseaseacuteApril 2024 9:28amChronic venous insufficiency of lower extremityacuteApril 2024 9:28amElevated cholesterolacuteApril 2024 9:28amHTN (hypertension)acute Julieta 2024 9:28amSubclinical hypothyroidismacuteApril 2024 9:28am Type 2 diabetes mellitus with diabetic polyneuropathyacuteApril 2024 9:28amType 2 diabetes mellitus with hyperglycemiaacuteApril 2024 9:28am Aortic stenosis, mildacuteJune 2024 10:12amAtrial flutteracuteJune 2024 10:12amHTN (hypertension)acuteJune 2024 10:12amSubclinical hypothyroidismacuteJune 2024 10:12am [facility] Work Phone: 1(661) 244-981102-10-2025 Evaluation note* Diagnosis Onset Date Resolution Status Admit Date Aortic stenosis, mild acuteFebruary 2024 12:54pmAtrial flutteracuteFebruary 2024 12:54pm HTN (hypertension)acuteFebruary 2024 12:54pmSubclinical hypothyroidism acuteFebruary 2024 12:54pmHTN (hypertension)acuteMarch 2024 9:46am Aortic stenosis, mildacuteApril 2024 9:28amAtrial flutteracuteApril 2024 9:28amChronic kidney diseaseacuteApril 2024 9:28amChronic venous insufficiency of lower extremityacuteApril 2024 9:28amElevated cholesterol acuteApril 2024 9:28amHTN (hypertension)acuteApril 2024 9:28am Subclinical hypothyroidismacuteApril 2024 9:28amType 2 diabetes mellitus with diabetic polyneuropathyacuteApril 2024 9:28amType 2 diabetes mellitus with hyperglycemiaacuteApril 2024 9:28am [facility] Work Phone: 1(165) 864-606702-07-2025 NoteHNO ID: [id number] Author: LETICIA MILIAN APRN.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 Service: ? Author Type: Nurse Practitioner Type: Progress Notes Filed: 04/21/2024 16:58 Note Text: Norberto Washington [address] [facility] [address] HISTORY OF PRESENT ILLNESS: Seen 02/08/24 for BPH w obs/luts, UTI, incomplete emptying Denies gross hematuria Denies burning with urination Pt stated that is having issue with constipation last BM a couple days ago ROSAMARIA 11/10/21 - 10 gm, rubbery, no nodules AUA=13 QOL 2 UAZ=987 ML cysto 11-12-21 = 2.5 cm NON [...] BPH w obs/luts, UTI (new finding today 04/21/24) C/O of burning with urination for about 1 wk Denies gross hematutia Drink 50 oz water day Drink 1 quart coffee day and Drink Drink 1 cup water Denies issues with BM PVR=34 ML Location: BPH w obs/luts, UTI Pain Character: none Severity Scale: see AUA score, see lab Duration: BPH w obs/luts, UTI [employer] SYMPTOMS SCORE. 1. INCOMPLETE EMPTYING 1 2. FREQUENCY 2 3. INTERMITTENCY 3 4. URGENCY 0 5. WEAK STREAM 3 6. STRAINING 3 7. NOCTURIA 3 TOTAL SCORE 15 QOL 4 No past medical history on file. No past surgical history on file. No family history on file. Social History Tobacco Use Smoking status: Former Current packs/day: 0.00 Average packs/day: 1.5 packs/day for 14.0 years (21.0 ttl pk-yrs) Types: Cigarettes Start date: 03/15/1957 Quit date: 03/15/1971 Years since quittin.1 Smokeless tobacco: Never Substance Use Topics Alcohol use: Yes Comment: social MEDICATIONS: Current Outpatient Medications Medication Sig TURMERIC ORAL Take by mouth. multivitamin (MULTIPLE VITAMINS ORAL) Take by mouth. apixaban (ELIQUIS) 2.5 mg tab(s) 5 mg two times a day. vit A/vit C/vit E/zinc/copper (PRESERVISION AREDS ORAL) Take by mouth. aspirin 81 mg cap Aspirin Active 81 [...] Take 20 mg by mouth once daily. tamsulosin (FLOMAX) 0.4 mg Take 1 capsule by mouth two times a day. cephALEXin (KEFLEX) 500 mg capsule Take 1 capsule by mouth two times a day for 10 days. metoprolol succinate ER (TOPROL XL) 25 mg 24 hr tablet Take 1 tablet by mouth every afternoon. (Patient not taking: Reported on 04/21/2024) doxycycline hyclate (VIBRAMYCIN) 100 mg capsule (Patient [...] from the gums. PHYSICAL EXAM: VITALS: BP 161/69 Pulse 76 Wt 97.5 kg (215 lb) BMI 26.87 kg/m? GENERAL: Alert, oriented and in no [...] obstruction on flomax -LIOR -DM -UTI TURP ar (more content not included)...[facility]02-07-2025 History of Present illness Narrative* Leticia Milian, JOAQUIN.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 - 04/21/2024 4:18 PM EST Norberto Mccoy [address] [address] HISTORY OF PRESENT ILLNESS: Seen 02/08/24 for BPH w obs/luts, UTI, incomplete emptying Denies gross hematuria Denies burning with urination Pt stated that is having issue with constipation last BM a couple days ago ROSAMARIA 11/10/21 - 10 gm, rubbery, no nodules AUA=13 QOL 2 FPO=121 ML cysto 11-12-21 = 2.5 cm NON [...] BPH w obs/luts, UTI (new finding today 04/21/24) C/O of burning with urination for about 1 wk Denies gross hematutia Drink 50 oz water day Drink 1 quart coffee day and Drink Drink 1 cup water Denies issues with BM PVR=34 ML Location: BPH w obs/luts, UTI Pain Character: none Severity Scale: see AUA score, see lab Duration: BPH w obs/luts, UTI [employer] SYMPTOMS SCORE. 1. INCOMPLETE EMPTYING 1 2. FREQUENCY 2 3. INTERMITTENCY 3 4. URGENCY 0 5. WEAK STREAM 3 6. STRAINING 3 7. NOCTURIA 3 TOTAL SCORE 15 QOL 4 No past medical history on file. No past surgical history on file. No family history on file. Social History Tobacco Use Smoking status: Former Current packs/day: 0.00 Average packs/day: 1.5 packs/day for 14.0 years (21.0 ttl pk-yrs) Types: Cigarettes Start date: 03/15/1957 Quit date: 03/15/1971 Years since quittin.1 Smokeless tobacco: Never Substance Use Topics Alcohol use: Yes Comment: social MEDICATIONS: Current Outpatient Medications Medication Sig TURMERIC ORAL Take by mouth. multivitamin (MULTIPLE VITAMINS ORAL) Take by mouth. apixaban (ELIQUIS) 2.5 mg tab(s) 5 mg two times a day. vit A/vit C/vit E/zinc/copper (PRESERVISION AREDS ORAL) Take by mouth. aspirin 81 mg cap Aspirin Active 81 [...] Take 20 mg by mouth once daily. tamsulosin (FLOMAX) 0.4 mg Take 1 capsule by mouth two times a day. cephALEXin (KEFLEX) 500 mg capsule Take 1 capsule by mouth two times a day for 10 days. metoprolol succinate ER (TOPROL XL) 25 mg 24 hr tablet Take 1 tablet by mouth every afternoon. (Patient not taking: Reported on 04/21/2024) doxycycline hyclate (VIBRAMYCIN) 100 mg capsule (Patient [...] from the gums. PHYSICAL EXAM: VITALS: BP 161/69 Pulse 76 Wt 97.5 kg (215 lb) BMI 26.87 kg/m GENERAL: Alert, oriented and in no [...] Urology PLAN: (Management Options): AUA, PVR today Cont increase water intake Encourage good BM regulation with stool softener and fiber Standing order for urine place will get only if symptomatic Increase flomax to BID new script sent Rto 6 months for evaluation of BPH w obs/luts, AUA, PVR PRN if symptomatic Medical Decision Making: Problems: Moderate: 1+ chronic illnesses with change Data: Unique test result(s) reviewed: 1 Unique test(s) ordered: 2 Risk: Low: Low risk from testing/treatment Medical Decision Making Level: 4 - Moderate Leticia Miilan APRN.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 documented in this encounterMer[facility]02-07-[facility]25 History of Present illness Narrative* Sterling Torres DO - 04/21/2024 8:15 AM EST Images from the original note were not included. Assessment/Plan Diagnoses and all orders for this visit: Refractive error - There is a slight change to the glasses that bring the eyes back around and subjectively he felt the new Rx from today was better. Right eye (OD) and left eye hit 20/20. However, he also has other conditions in the eyes that make it not only a glasses issue. 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 documented in this encounterDoctors [facility] of [id number] Telephone encounter Note* Telephone Encounter - Jeannette Cervantes MA - 04/03/2024 9:10 AM EST Patient phones requesting refills as follows: Requested Prescriptions Pending Prescriptions Disp Refills tamsulosin (FLOMAX) 0.4 mg [Pharmacy Med Name: TAMSULOSIN HCL CAPS 0.4MG] 90 capsule 3 Sig: TAKE 1 CAPSULE ONCE DAILY Please review and advise. Jeannette Cervantes MA Last ov: 02/08/24 Next appt: 05/10/24 [facility]01-20-[facility] Miscellaneous Notes* Telephone Encounter - Jeannette Cervantes MA - 04/03/2024 9:10 AM EST Patient phones requesting refills as follows: Requested Prescriptions Pending Prescriptions Disp Refills tamsulosin (FLOMAX) 0.4 mg [Pharmacy Med Name: TAMSULOSIN HCL CAPS 0.4MG] 90 capsule 3 Sig: TAKE 1 CAPSULE ONCE DAILY Please review and advise. Jeannette Cervantes MA Last ov: 02/08/24 Next appt: 05/10/24 documented in this encounterMer[facility]01-08-2025 NoteRight Eye Reliability was poor. Progression has been stable. Foveal threshold was normal. Findings include normal observations. Left Eye Reliability was good. Progression has worsened. Foveal threshold was normal. Findings include superior altitudinal defect.[facility] [id number] History of Present illness Narrative* Sterling Torres DO - 03/22/2024 11:15 AM EST Images from the original note were not [...] lid scrubs were recommended. documented in this encounterDoctors Hospital of [id number] Evaluation note* Diagnosis Onset Date Resolution Status Admit Date Aortic stenosis, mild acuteDecember 2023 2:45pmAtrial flutteracuteDecember 2023 2:45pmHTN (hypertension)acuteDecember 2023 2:45pmSubclinical hypothyroidismacute March 14, 2024 2:45pmAortic stenosis, mildacuteJanuary 2024 8:25am Atrial flutteracuteJanuary 2024 8:25amChronic kidney diseaseacuteJanuary 2024 8:25amChronic venous insufficiency of lower extremityacuteJanuary 2024 8:25amElevated cholesterolacuteJanuary 2024 8:25amHTN (hypertension)acuteJanuary 2024 8:25amSubclinical hypothyroidismacute April 05, 2024 8:25amType 2 diabetes mellitus with diabetic polyneuropathy acuteJanuary 2024 8:25amType 2 diabetes mellitus with hyperglycemiaacute April 05, 2024 8:25amAortic stenosis, mildacuteFebruary 2024 12:54pm Atrial flutteracuteFebruary 2024 12:54pmHTN (hypertension)acuteFebruary 2024 12:54pmSubclinical hypothyroidismacuteFebruary 2024 12:54pmHTN (hypertension)acuteMarch 2024 9:46am [facility] Work Phone: 1(834) 283-220611-26-2024 Instructions* Patient Instructions* Leticia Milian APRN.CNP - 02/08/2024 9:06 AM EST Need to have regular bowel moment with miralax to get going then metamucil daily to regulate Increase water intake Make sure you taking flowmax daily Go to lab and give urine for testing documented in this encounterMercy [facility]11-26-2024 NoteHNO ID: [id number] Author: LETICIA MILIAN APRN.ENIO Service: ? Author Type: Nurse Practitioner Type: Progress Notes Filed: 02/08/2024 09:06 Note Text: Norberto Washington [address] [facility] [address] HISTORY OF PRESENT ILLNESS: Seen 08/04/23 for BPH w obs/luts, UTI Pt is presently on correction antibiotic due to infection in toes that [...] constipation last BM a couple days ago IIH=003 ML Location: BPH w obs/luts, UTI Pain Character: none Severity Scale: see AUA score, see lab Duration: BPH w obs/luts, UTI [employer] SYMPTOMS SCORE. 1. INCOMPLETE EMPTYING [...] TURP around 2019 outs (more content not included)...[facility] 02-08-2024 History of Present illness Narrative* Leticia Milian, INSURANCE EXAMINING CLERK.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 - 02/08/2024 8:22 AM EST Norberto Washington [address] [place] [id number] HISTORY OF PRESENT ILLNESS: Seen 08/04/23 for BPH w obs/luts, UTI Pt is presently on terminologist antibiotic due to infection in toes that [...] constipation last BM a couple days ago BKH=888 ML Location: BPH w obs/luts, UTI Pain Character: none Severity Scale: see AUA score, see lab Duration: BPH w obs/luts, UTI [employer] SYMPTOMS SCORE. 1. INCOMPLETE EMPTYING [...] Making Level: 4 - Moderate Leticia Milian APRN.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 documented in this encounterMercy [facility]11-19-2024 Evaluation note* Diagnosis Onset Date Resolution Status Admit Date Aortic stenosis, mild acuteNov2023 1:24pmAtrial flutteracuteNovember 2023 1:24pm Chronic kidney diseaseacuteNovember 2023 1:24pmChronic venous insufficiency of lower extremityacuteNov2023 1:24pmElevated cholesterolacuteNov2023 1:24pmHTN (hypertension)acuteNov2023 1:24pmType 2 diabetes mellitus with diabetic polyneuropathyacuteNov2023 1:24pmType 2 diabetes mellitus with hyperglycemiaacuteNov2023 1:24pmAortic stenosis, mildacuteDecember 2023 2:45pmAtrial flutter acuteDecemb2023 2:45pmHTN (hypertension)acuteDecember 2023 2:45pm Subclinical hypothyroidismacuteDecember 2023 2:45pmAortic stenosis, mild acuteJanuary 2024 8:25amAtrial flutteracuteJanuary 2024 8:25am Chronic kidney diseaseacuteJanuary 2024 8:25amChronic venous insufficiency of lower extremityacuteJanuary 2024 8:25amElevated cholesterolacute April 05, 2024 8:25amHTN (hypertension)acuteJanuary 2024 8:25am Subclinical hypothyroidismacuteJanuary 2024 8:25amType 2 diabetes mellitus with diabetic polyneuropathyacuteJanuary 2024 8:25amType 2 diabetes mellitus with hyperglycemiaacuteJanuary 2024 8:25am [facility] Work Phone: 1(428) 618-277011-19-2024 Evaluation note* Diagnosis Onset Date Resolution Status Admit Date Aortic stenosis, mild acuteNovember 2023 1:24pmAtrial flutteracuteNovember 2023 1:24pm Chronic kidney diseaseacuteNovember 2023 1:24pmChronic venous insufficiency of lower extremityacuteNovember 2023 1:24pmElevated cholesterolacuteNovember 2023 1:24pmHTN (hypertension)acuteNovember 2023 1:24pmType 2 diabetes mellitus with diabetic polyneuropathyacuteNovember 2023 1:24pmType 2 diabetes mellitus with hyperglycemiaacuteNovember 2023 1:24pmAortic stenosis, mildacuteDecember 2023 2:45pmAtrial flutter acuteDecember 2023 2:45pmHTN (hypertension)acuteDecember 2023 2:45pm Subclinical hypothyroidismacuteDecember 2023 2:45pmAortic stenosis, mild acuteJanuary 2024 8:25amAtrial flutteracuteJanuary 2024 8:25am Chronic kidney diseaseacuteJanuary 2024 8:25amChronic venous insufficiency of lower extremityacuteJanuary 2024 8:25amElevated cholesterolacute April 05, 2024 8:25amHTN (hypertension)acuteJanuary 2024 8:25am Subclinical hypothyroidismacuteJanuary 2024 8:25amType 2 diabetes mellitus with diabetic polyneuropathyacuteJanuary 2024 8:25amType 2 diabetes mellitus with hyperglycemiaacuteJanuary 2024 8:25amAortic stenosis, mild acuteFebruary 2024 12:54pmAtrial flutteracuteFebruary 2024 12:54pm HTN (hypertension)acuteFebruary 2024 12:54pmSubclinical hypothyroidism acuteFebruary 2024 12:54pm [facility] Work Phone: 1(803) 904-103510-15-2024 Evaluation note* Diagnosis Onset Date Resolution Status Admit Date Chronic kidney disease acuteOctober 2023 8:09amChronic venous insufficiency of lower extremity acuteOctober 2023 8:09amElevated cholesterolacuteOctober 2023 8:09am Heart murmuracuteOctober 2023 8:09amHTN (hypertension)acuteOctober 2023 8:09amMedicare annual wellness visit, subsequentacuteOctober 2023 8:09amOverweightacuteOctober 2023 8:09amType 2 diabetes mellitus with diabetic polyneuropathyacuteOctober 2023 8:09amType 2 diabetes mellitus with hyperglycemiaacuteOctober 2023 8:09amAortic stenosis, mildacute February 01, 2024 1:24pmAtrial flutteracuteNovember 2023 1:24pmChronic kidney diseaseacuteNovember 2023 1:24pmChronic venous insufficiency of lower extremityacuteNovember 2023 1:24pmElevated cholesterolacuteNovember 2023 1:24pmHTN (hypertension)acuteNovember 2023 1:24pmType 2 diabetes mellitus with diabetic polyneuropathyacuteNovember 2023 1:24pm Type 2 diabetes mellitus with hyperglycemiaacuteNovember 2023 1:24pm [facility] Work Phone: 1(305) 528-641310-15-2024 Evaluation note* Diagnosis Onset Date Resolution Status Admit Date Chronic kidney disease acuteOctober 2023 8:09amChronic venous insufficiency of lower extremity acuteOctober 2023 8:09amElevated cholesterolacuteOctober 2023 8:09am Heart murmuracuteOctober 2023 8:09amHTN (hypertension)acuteOctober 2023 8:09amMedicare annual wellness visit, subsequentacuteOctober 2023 8:09amOverweightacuteOctober 2023 8:09amType 2 diabetes mellitus with diabetic polyneuropathyacuteOctober 2023 8:09amType 2 diabetes mellitus with hyperglycemiaacuteOctober 2023 8:09amAortic stenosis, mildacute November 2023 1:24pmAtrial flutteracuteNovember 2023 1:24pmChronic kidney diseaseacuteNovember 2023 1:24pmChronic venous insufficiency of lower extremityacuteNovember 2023 1:24pmElevated cholesterolacuteNovember 2023 1:24pmHTN (hypertension)acuteNovember 2023 1:24pmType 2 diabetes mellitus with diabetic polyneuropathyacuteNovember 2023 1:24pm Type 2 diabetes mellitus with hyperglycemiaacuteNovember 2023 1:24pmAortic stenosis, mildacuteDecember 2023 2:45pmAtrial flutteracuteDecember 2023 2:45pmHTN (hypertension)acuteDecember 2023 2:45pmSubclinical hypothyroidismacuteDecember 2023 2:45pm [facility] Work Phone: 1(207) 142-881410-04-2024 NoteRight Eye Quality was good. Scan locations included subfoveal. Progression has been stable. Findings include normal observations. Left Eye Quality was good. Scan locations included subfoveal. Progression has been stable. Findings include normal observations. Notes Good scan with normal appearanceDoctors Hospital of [id number] History of Present illness Narrative* Sterling Torres [...] lid scrubs were recommended. documented in this encounterDoctors Hospital of [id number] History of Present illness Narrative* Leticia Milian, INSURANCE EXAMINING CLERK.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 - 08/04/2023 8:58 AM EDT Norberto Washington [address] [place] [address] HISTORY OF PRESENT ILLNESS: Seen 02/02/23 for [...] finding today 08/04/23) Pt is presently on terminologist antibiotic due to infection in toes that went to bone Stated that urinary symptoms have resolved with treatment. PVR=36 ML UA 07/26/23=trace leuk esterase Culture 07/26/23=<10,000 CFU/ml Lactose positive gram negative bacilli Abnormal A1C 07/26/23=6.4 Location: BPH w obs/luts, UTI Pain Character: none Severity Scale: see AUA score, see lab Duration: BPH w obs/luts, UTI [employer] SYMPTOMS SCORE. 1. INCOMPLETE EMPTYING [...] with flomax) -BPH without obstruction on flomax -ILOR -DM -UTI TURP around 2018 outside Urology [...] Making Level: 4 - Moderate Leticia Milian APRN.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 documented in this encounterMer[facility]02-07-2024 Evaluation note* Encounter Date Diagnosis Assessment Notes Treatment Notes Treatment Clinical Notes Apr, Cellulitis of right lower extrem ity (ICD-10 - L03.115) Continue oral antibiotics for now but would recommend IV antibiotics. Have spoken w/ Dr. Tejada and he is in agreement that IV antibiotics may benefit this condition. Order for picc line placement Order for Vancomycin (dosed per pharmacy) Order for Fortaz 2gms IV q 12 f/u in 2 wks for recheck. Apr,Type 2 diabetes mellitus with foot ulcer (ICD-10 - E11.621) Instructed to avoid standing and walking as much as possible. Recommend resting w/ foot elevated. Continue HH for cleansing wound and dressing wound. Apr,Type 2 diabetes mellitus with peripheral neuropathy (ICD-10 - E11.42)Inspect feet daily for cuts and calluses.Recommend diabetic shoes and inserts to prevent callus formation.Fall precautions. Apr,Type 2 diabetes mellitus with hyperglycemia, without long-term current use of insulin (ICD-10 - E11.65)This patient is following a comprehensive diabetic treatment [...] office visit. Continue regular routine monitoring of A1C,Microalbumin, Dilated eye exam and Foot exam Apr,rimary hypertension (ICD-10 - I10)This patient is instructed to consume a healthy, low-fat, low-salt diet. They are also encouraged to continue exercise to achieve/maintain a normal BMI. Patient is instructed on home BP measurements: - rest for 5 minutes w/o talking.- positioned w/ feet on floor and arm supported.- average best 2/3 readings w/ goal < 135/85.- update office w/ homereadings in 2 weeks. Apr,OtherContinue cleansing and dressing per home health He [...] - recommend Picc line and IV antibiotics [facility] Other 01-03-2024 Evaluation note* Encounter Date Diagnosis Assessment Notes Treatment Notes Treatment Clinical Notes Mar, Foot abscess, right (ICD-10 - L0 2.611) Debrided and dressing applied by wound clinic Podiatric evaluation and consultation completed. Strong PT pulse w/ decreased sensation. Instructed to inspect foot daiy - home health consulted to assist in monitoring wound - home health will be changing bandages routinely f/u Wound clinic Mar,ellulitis of right lower extremity (ICD-10 - L03.115)Received IV antibiotics, followed by Doxycycline. Complete course of antibiotics w/o interruption. Monitor closely, after completing antibiotics, for pain, swelling or drainage Mar,Type 2 diabetes mellitus with hyperglycemia, without long-term current use of insulin (ICD-10 - E11.65)This patient is following a comprehensive diabetic treatment [...] Microalbumin, Dilated eye exam and Foot exam Mar,Type 2 diabetes mellitus with peripheral neuropathy (ICD-10 - E11.42)Inspect feet daily for cuts and calluses.Recommend diabetic shoes and inserts to prevent callus formation.Fall precautions. Mar,rimary hypertension (ICD-10 - I10)d/c Amlodipine due to lightheadedness w/ PAUL and Flomax. Since hospital d/c, his BP has increased. Instructed to monitor at home over the next week and if > 140/90, will need to restart Amlodipine. Continue PAUL for now. [facility] Other 12-12-2023 Evaluation note* Encounter Date Diagnosis Assessment Notes Treatment Notes Treatment Clinical Notes Feb, Right leg swelling (ICD-10 - M79 .89) Avoid salt and elevate as much as possible. Need to r/o DVT Need to refer to Podiatry to assess foot abscess. Feb,Foot abscess, right (ICD-10 - L02.611)Continue Augmentin for now. Will require referral and debridement w/ Podiatry. Deep cultures may be helpful in guiding antibiotic coverage. Feb,allus of foot (ICD-10 - L84)Will require Podiatric evaluation and treatment. Source of infection. 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 Increases risk of infection Feb,Type 2 diabetes mellitus with hyperglycemia, without long-term current use of insulin (ICD-10 - E11.65)This patient is following a comprehensive diabetic treatment [...] exam and Foot exam Last A1C 6% Feb,Type 2 diabetes mellitus with peripheral neuropathy (ICD-10 - E11.42)Inspect feet daily for cuts and calluses.Recommend diabetic shoes and inserts to prevent callus formation.Fall precautions. [facility] Other 12-08-2023 Evaluation note* Encounter Date Diagnosis Assessment Notes Treatment Notes Treatment Clinical Notes Feb, Foot abscess, right (ICD-10 - L0 2.611) Keep clean and dry. Begin systemic antibiotics. Doubt soaking or use of topical antibiotics helpful. 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 Feb,Type 2 diabetes mellitus with hyperglycemia, without long-term current use of insulin (ICD-10 - E11.65)Controlled w/ last A1C 6% This patient is [...] Microalbumin, Dilated eye exam and Foot exam Feb,Type 2 diabetes mellitus with peripheral neuropathy (ICD-10 - E11.42)Fall precautions Inspect feet daily for new calluses, cuts and ulcers. Recommend routine foot care w/ Podiatry [facility] Other 11-21-2023 Miscellaneous Notes* Addendum Note - Leticia Milian, INSURANCE EXAMINING CLERK.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 - 02/02/2023 2:16 PM ESTAddended by: LETICIA MILIAN on: 02/02/2023 02:16 PM Modules accepted: Orders documented in this encounterMer[facility]11-21-[facility]23 History of Present illness Narrative* Leticia Milian APRN.CNP - 02/02/2023 1:40 PM EST Norberto Washington [address] [facility] [address] HISTORY OF PRESENT ILLNESS: Seen 07/28/22 for [...] see lab Duration: BPH w obs/luts, UTI [facility] SYMPTOMS SCORE. 1. INCOMPLETE EMPTYING [...] Making Level: 4 - Moderate Leticia Milian APRN.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 documented in this encounterMercy Health [facility]07-11-2023 Evaluation note* Encounter Date Diagnosis Assessment Notes Treatment Notes Treatment Clinical Notes Sep, Acute bronchitis due to other sp ecified organisms (ICD-10 - J20.8) Instructed to use Robitussin or Mucinex for cough, saline or Flonase NS for congestion, Tylenol forpain and fever. Sep,rimary hypertension (ICD-10 - I10)This patient is instructed to consume a healthy, low-fat, low-salt diet. They are also encouraged to continue exercise to achieve/maintain a normal BMI. Sep,Type 2 diabetes mellitus with hyperglycemia, without long-term current use of insulin (ICD-10 - E11.65)This patient is following a comprehensive diabetic treatment [...] w/ acute infection Requires no additional treatment [facility] Other 07-06-2023 Evaluation note* Encounter Date Diagnosis Assessment Notes Treatment Notes Treatment Clinical Notes Sep, Primary hypertension (ICD-10 - I 10) This patient is instructed to consume a healthy, low-fat, low-salt diet. They are also encouraged to continue exercise to achieve/maintain a normal BMI. Flomax has lowered his BP and causes lightheadedness and weakness. Instructed to stop Amlodipine and monitor BP Sep,Type 2 diabetes mellitus with hyperglycemia, without long-term current use of insulin (ICD-10 - E11.65)This patient is following a comprehensive diabetic treatment [...] Microalbumin, Dilated eye exam and Foot exam Sep,Type 2 diabetes mellitus with diabetic polyneuropathy, without long- term current use of insulin (ICD-10 - E11.42)Inspect feet daily for cuts and calluses.Recommend diabetic shoes and inserts to prevent callus formation.Fall precautions. Sep,Hyperlipidemia type II (ICD-10 - E78.01)Instructed on diet and exercise with continued statin therapy.Discussed the beneficial effects of lo wering cholesterol in reducing the risk for cerebrovascular and cardiovascular disease. Sep,Feeling of incomplete bladder emptying (ICD-10 - R39.14)Symptoms improved w/ prescription of Flomax. Continue for now and f/u w/ Sep,enign prostatic hyperplasia with lower urinary tract symptoms (ICD- 10 - N40.1) Sep,arotid bruit (ICD-10 - R09.89)US: < 50% B/L - ontrol BP Carotid US every 2-3 years Sep,Overweight (ICD-10 - E66.3)This patient has been instructed on a low-fat, high-fiber diet. They are instructed to reduce calories, portion sizes and snacks. It is recommended that they exercise for 30 minutes, 3-5 times weekly. [facility] Other 04-06-2023 Evaluation note* Encounter Date Diagnosis Assessment Notes Treatment Notes Treatment Clinical Notes Jun, Type 2 diabetes patsy itus with hyperglycemia, without long-term current use of [...] reviewed at the office visit. A1C: due Jun,Type 2 diabetes mellitus with diabetic polyneuropathy, without long- term current use of insulin (ICD-10 - E11.42)Inspect feet daily for cuts and calluses.Recommend diabetic shoes and inserts to prevent callus formation.Fall precautions. Jun,Left carotid stenosis (ICD-10 - I65.22)US: < 50% B/L stenosis, 63% left carotid bulb - ontinue primary prevention measures w/ ASA and Statin. Instructed to go to ER for any acute neurologic changes - loss of vision, facial droop, slurred speech, unilateral weakness Yearsly carotid US Jun,Hypertension (ICD-10 - I10)This patient is instructed to consume a healthy, low-fat, low-salt diet. They are also encouraged to continue exercise to achieve/maintain a normal BMI. Jun,Hyperlipidemia type II (ICD-10 - E78.01)Diet and exercise with continued statin therapy. Jun,enign prostatic hyperplasia with lower urinary tract symptoms (ICD- 10 - N40.1)Continue Tamsulosin as directed. Continuesw/ some spontaneous leaking, s/p TURP Denies urinary retention, dribbling Nocturia x 2 f/u Jun,Epididymitis (ICD-10 - N45.1)Resolved w/ antibiotics and treatment of urinary retention [facility] Other 03-21-2023 NotePROCEDURE: XR FOOT LT MIN [...] Electronically authenticated by: SAMY TORRES Date: 2022-06-02 15:48[facility]03-21-2023 NotePROCEDURE: XR FOOT LT MIN 3 VIEWS, [...] Electronically authenticated by: SAMY TORRES Date: 2022-06-02 15:48[facility]01-25-2023 Evaluation note* Encounter Date Diagnosis Assessment Notes Treatment Notes Treatment Clinical Notes Mar, Type 2 diabetes patsy itus with peripheral neuropathy (ICD-10 - E11.42) Inspect feet daily for cuts and calluses. Prescription for diabetic shoes and inserts sent to Podiatry. Mar,Type 2 diabetes mellitus with hyperglycemia, without long-term current use of insulin (ICD-10 - E11.65)This patient is following a comprehensive diabetic treatment plan. They are checking their feet daily for calluses and nonhealing ulcers. They are being seen for yearly dilated eye examinations. Goals: SBP less than 130, LDL less than 100, FBS less than 140, AC and A1C less than 7%. They are checking their BS daily, will which are reviewed at the office visit. Mar,enign prostatic hyperplasia with lower urinary tract symptoms (ICD- 10 - N40.1)Continue Flomax. Mar,Hesitancy of micturition (ICD-10 - R39.11) Mar,ctinic keratosis (ICD-10 - L57.0)Patient's lesion was treated w/ cryotherapy w/o complications [facility] Other 01-06-2023 Evaluation note* Encounter Date Diagnosis Assessment Notes Treatment Notes Treatment Clinical Notes Mar, Hypertension (ICD-10 - I10) This patient is instructed to consume a healthy, low-fat, low-salt diet. They are also encouraged to continue exercise to achieve/maintain a normal BMI. 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 They are also educated on the associated risks of NSAIDs and PPI use with kidney disease. They were instructed on adequate fluid balance and to avoid dehydration. Mar,Type 2 diabetes mellitus with peripheral neuropathy (ICD-10 - E11.42)Inspect feet daily for calluses and ulcerations. Recommend diabetic shoes and inserts to decrease development of calluses and ulcerations Mar,Hyperlipidemia type II (ICD-10 - E78.01)Diet and exercise with continued statin therapy. Mar,cute pain of left knee (ICD-10 - M25.562)Quad exercises, ice, heat and Voltaren Gel. 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 Mar,Hesitancy of micturition (ICD-10 - R39.11) [facility] Other 10-27-2022 History of Present illness Narrative* Zuleika Hackett - 01/08/2022 8:20 AM EDT Norberto Washington [address] [id number] Mr. Washington presents with chief complaints of: Enlarged L testicle. ED 11/07/21: PVR 179 cc, refused a catheter, scheduled to undergo a cystoscopy in [place] but was cancelled due to his urologist [...] epididymitis Hydroceles: None Spermatoceles: None Varicoceles: None [facility] SYMPTOMS SCORE. Date 01/08/2022 1. [...] complete. Leonard Dugan M.D. documented in this encounterMer[facility]10-05-2022 Hospital Discharge instructions Additional Instructions Continue taking Flomax as prescribed Avoid drinking any fluids several hours before bed Call your urologist tomorrow for a follow-up appointment Return if you are unable to urinate, develop blood in your urine, abdominal pain, [facility]versB[facility] Work Phone: [phone] History of Present illness Narrative* Leonard Dugan MD - 12/16/2021 2:51 PM EDT Norberto Nadine [address] [address] HISTORY OF PRESENT ILLNESS: ED 11/07/21: PVR 179 cc, refused a catheter, scheduled to undergo a cystoscopy in [place] but was cancelled due to his urologist [...] Otherwise, intermittent catheterization. Agreed indwelling catheter 18 andorran. Flomax will not work, no prostate tissue [...] well resected prostate (had 2 TURP) in [place] PLAN: (Management Options): -Start Flomax one cap [...] Moderate Leonard Dugan MD documented in this encounterMercy Health [facility]10-03-2022 Miscellaneous Notes* Telephone Encounter - Valente Bell LPN - 12/15/2021 3:58 PM EDT Called and spoke to patient regarding message below. Patient states understanding to information provided. No further action required at this time. * Telephone Encounter - Leticia Milian APRN.ENIO - 12/15/2021 10:13 AM EDT Please call and confirm that pt received [email or web address] message to start new script sent for antibiotic. Thanks Leticia MONDRAGON documented in this encounterMercy Health [facility]09-29-2022 Miscellaneous Notes* Telephone Encounter - Valente [...] be draining normally now. documented in this encounterMercy Health [facility]09-28-2022 Nurse Note* Stephanie Kaur RN - [...] hyperplasia with urinary retention documented in this encounterMercy Health [facility]09-27-2022 History of Present illness Narrative* Leonard Dugan MD - 12/09/2021 5:05 PM EDT [facility] PHYSICIAN INTERPRETATION: Urodynamics [...] contractility Leonard Dugan MD documented in this encounterMercy Health [facility]09-27-2022 Nurse Note* Stephanie Kaur RN - 12/09/2021 3:57 PM EDT [facility] URODYNAMICS LAB URODYNAMIC [...] of incomplete bladder emptying documented in this encounterMercy [facility]09-26-2022 Miscellaneous Notes* Telephone Encounter - Stephanie Kaur RN - 12/08/2021 4:11 PM EDT LM for patient to reschedule catheter change for tomorrow. Last changed 11/26/21 in ED. Will be due for change on 12/23/21. Stephanie Kaur R.N. documented in this encounterMercy Health [facility]09-12-2022 Miscellaneous Notes* Telephone Encounter - Sonia [...] has been busy with his spouse at [facility] having to care for her needs and hadn't called earlier when it first started on Wednesday. He was hoping it would clear up but it has not, urine is between [place] tint & Brown and he does see small clots. Patient does have pain at the end of his Penis slight swelling noted (he has been applying Neosporin) Denies difficulty with urine draining into Smith bag, he does not have back pain Please advise documented in this encounterMercy [facility]08-31-2022 Nurse Note* Stephanie Kaur RN - [...] Education Session: None Instruction Provided To: Patient Candy Rolling Machine Operator Present: not applicable Discipline: Nursing [...] supervision. Stephanie Kaur RN documented in this encounterMercy Health [facility]08-31-2022 Procedure note* Leonard Dugan MD - 11/12/2021 11:00 AM EDTProcedure(s): CYSTOSCOPY Pre-Procedure Diagnose(s): BPH with obstruction/lower urinary tract symptoms Post-Procedure Diagnose(s): BPH with obstruction/lower urinary tract symptoms PROCEDURE: CYSTOSCOPY INDICATIONS: ED 11/07/21: PVR 179 cc, refused a catheter, scheduled to undergo a cystoscopy in [place] but was cancelled due to his urologist [...] Otherwise, intermittent catheterization. Agreed indwelling catheter 18 andorran. By signing my name below, IZuleika, attest that this documentation has been prepared under the direction and in the presence of Dr. Dugan. Munir Boothe Provider Attestation: ILeonard M.D., personally performed the services described in this documentation. All medicalrecord entries made by the scribe were at my direction and in my presence. I have reviewed the chart and discharge instructions (if applicable) and agree that the record reflects my personal performance and is accurate and complete. Leonard Dugan M.D. documented in this encounterMercy Health [facility]08-29-2022 History of Present illness Narrative* Leonard Dugan MD - 11/10/2021 12:11 PM EDT Cysto with uroflow 11-12-21 ED 11/07/21: PVR 179 cc, refused a catheter, scheduled to undergo a cystoscopy in [place] but was cancelled due to his urologist was sick Pt underwent TURP x2 within a week AUA= 3-5 wach ROSAMARIA 11/10/21 - 10 gm, rubbery, no nodules US 11/07/21:= mildly complex renal cysts UA and culture 11-07-21= -ve May need UDS based on cysto documented in [facility]Prem[facility] + Plan note No data available for this section [facility] Evaluation note* Diagnosis BPH with obstruction/lower urinary tract symptoms- Primary Hypertrophy of prostate with urinary obstruction and other lower urinary tract symptoms (LUTS) Benign prostatic hyperplasia with urinary retention documented in this encounter [facility]* Diagnosis Urinary frequency- Primary Urinary urgency Urgency of urination Urinary straining Straining on urination Feeling of incomplete bladder emptying Incomplete bladder emptying documented in this encounter [facility]* Diagnosis Urinary tract infection without hematuria, site unspecified- Primary Feeling of incomplete bladder emptying Incomplete bladder emptying Benign prostatic hyperplasia with urinary retention documented in this encounter [facility] noteNo assessment information [facility] Work Phone: Evaluation note* Diagnosis Retention of urine- Primary Retention of urine, unspecified Flaccid bladder Neurogenic bladder, NOS documented in this encounter [facility]* Diagnosis Chronic epididymitis- Primary Left hydrocele Hydrocele, unspecified Weak urinary stream Slowing of urinary stream BPH without obstruction/lower urinary tract symptoms Hypertrophy of prostate without urinary obstruction and other lower urinary tract symptoms (LUTS) Epididymitis Orchitis and epididymitis, unspecified documented in this encounter [facility] noteNo InformationNort Avenir [facility] Other Evaluation note* Diagnosis BPH with obstruction/lower urinary tract symptoms- Primary Hypertrophy of prostate with urinary obstruction and other lower urinary tract symptoms (LUTS) Recurrent UTI Urinary tract infection, site not specified Weak urinary stream Slowing of urinary stream documented in this encounter [facility] HospitalEvaluation [facility]* Diagnosis Onset Date Resolution Status Chronic venous insufficiency of lower ex tremity acuteType 2 diabetes mellitus with hyperglycemiaacuteChronic kidney diseaseacute Chronic venous insufficiency of lower extremityacuteElevated cholesterolacuteHTN (hypertension)acuteType 2 diabetes mellitus with hyperglycemiaacute [facility] Work Phone: Evaluation note* Diagnosis Onset Date Resolution Status Chronic venous insufficiency of lower ex tremity acuteType 2 diabetes mellitus with hyperglycemiaacuteChronic kidney diseaseacute Chronic venous insufficiency of lower extremityacuteElevated cholesterolacuteHTN (hypertension)acuteOverweightacuteType 2 diabetes mellitus with hyperglycemia acute [facility] Work Phone: Evaluation note* Diagnosis Onset Date Resolution Status Chronic venous insufficiency of lower ex tremity acuteType 2 diabetes mellitus with hyperglycemiaacuteChronic kidney diseaseacute Chronic venous insufficiency of lower extremityacuteElevated cholesterolacuteHTN (hypertension)acuteOverweightacuteType 2 diabetes mellitus with hyperglycemia acuteChronic kidney diseaseacuteChronic venous insufficiency of lower extremity acuteElevated cholesterolacuteHTN (hypertension)acuteOsteomyelitis of right foot 2024acuteType 2 diabetes mellitus with hyperglycemiaacutePreop exam for internal medicinenonUC Health Work Phone: Evaluation note* Diagnosis Benign prostatic hyperplasia, unspecified whether lower urinary tract symptoms present- Primary Recurrent UTI Urinary tract infection, site not specified Nocturia documented in this encounter [facility]Evaluation [facility]* Diagnosis Onset Date Resolution Status Chronic kidney disease acuteChronic venous insufficiency of lower extremityacuteElevated cholesterol acuteHTN (hypertension)acuteOsteomyelitis of right [id number] 2 diabetes mellitus with hyperglycemiaacutePreop exam for internal medicinenoneactive Chronic kidney diseaseacuteChronic venous insufficiency of lower extremityacute Elevated cholesterolacuteHTN (hypertension)acuteOverweightacuteType 2 diabetes mellitus with diabetic polyneuropathyacuteType 2 diabetes mellitus with hyperglycemiaacute [facility] Work Phone: Evaluation note* Diagnosis Onset Date Resolution Status Chronic kidney disease acuteChronic venous insufficiency of lower extremityacuteElevated cholesterol acuteHTN (hypertension)acuteOverweightacuteType 2 diabetes mellitus with diabetic polyneuropathyacuteType 2 diabetes mellitus with hyperglycemiaacute [facility] Work Phone: Evaluation note* Diagnosis 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 2 diabetes mellitus (CMS/HCC)- Primary 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 Dry eyes Unspecified tear film insufficiency Blepharitis of upper and lower eyelids of both eyes, unspecified type documented in this encounter [facility]Evaluation [facility]* Diagnosis Onset Date Resolution Status Chronic kidney disease acuteChronic venous insufficiency of lower extremityacuteElevated cholesterol acuteHTN (hypertension)acuteMedicare annual wellness visit, subsequentacute OverweightacuteType 2 diabetes mellitus with diabetic polyneuropathyacuteType 2 diabetes mellitus with hyperglycemiaacute [facility] Work Phone: Evaluation note* Diagnosis Recurrent UTI- Primary Urinary tract infection, site not specified Benign prostatic hyperplasia, unspecified whether lower urinary tract symptoms present Incomplete bladder emptying [facility] Diagnosis Optic atrophy- Primary Unspecified optic atrophy Dry eyes Unspecified tear film insufficiency 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 (CMS/HCC) Blepharitis of upper and lower eyelids of both eyes, unspecified type documented in this encounter [facility]* Diagnosis Refractive error- Primary Unspecified disorder of refraction and accommodation [facility]* Diagnosis Recurrent UTI- Primary Urinary tract infection, site not specified Benign prostatic hyperplasia, unspecified whether lower urinary tract symptoms present Weak urinary stream Slowing of urinary stream [facility] Diagnosis Benign prostatic hyperplasia, unspecified whether lower urinary tract symptoms present- Primary Weak urinary stream Slowing of urinary stream Balanitis Balanoposthitis documented [facility]* Diagnosis 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 of both eyes- Primary 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) Dry eyes Unspecified tear film insufficiency Blepharitis of upper and lower eyelids of both eyes, unspecified type documented in this encounter [facility] Narrative - Reported* Type Description Date Medical History Chronic stasis dermatitis Medical HistoryArthritis, lumbar spineMedical HistoryCarotid bruitMedical HistoryChronic kidney disease due to diabetes mellitusMedical HistoryBenign localized hyperplasia of prostate with urinary retentionMedical History HypertensionMedical HistoryHyperlipidemia type IIMedical HistoryHigh risk medication useMedical HistoryArthritis of right shoulder regionSurgical History AppendectomySurgical HistoryLT [id number] HistoryTendon's Trimmed in Left [id number] HistoryLeft Small Toe [id number] HistoryLeft Broken [id number] HistoryTURP with atjgboyhmx16.08.2020Hospitalization History see surgical history Ferfics Other Hospital Discharge instructions No data available for this section [facility] Progress note No data available for this section [facility] Reason for referral (narrative)* Outpatient Procedure (Routine) - Pending ReviewSpecialtyDiagnoses / ProceduresReferred By Contact Referred To [facility] Diagnoses 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 Procedures URODYNAMICS MAGGY POST-VOIDING RESIDUAL URINE&/BLADDER CAP Leonard Dugan MD [address] [place] [address] [place] [address] Referral IDStatusReasonStart DateExpiration DateVisits RequestedVisits [id number] Auto-Generated Referral [facility] for referral (narrative)No reason for referral information availableAdena [facility] Work Phone: Medications Administered Section Medication OrderMAR ActionAction DateDoseRateSite cephALEXin 500 mg cap(s) (KEFLEX) 500 mg, ORAL, ONCE, 1 dose, On Wed11/12/21 at 0000, Prior to HOPS procedure, Please document the antimicrobial indication: Prophylaxis Given11/12/2021 11:22 AM WRK175 mg lidocaine urojet 2 % 11 mL topical gel (XYLOCAINE, GLYDO) 11 mL, URETHRAL, ONCE, 1 dose, On Wed11/12/21 at 0000, FOR EXTERNAL USE ONLY Given11/12/2021 11:30 AM EDT11 mLMedication OrderMAR ActionAction DateDoseRate Site lidocaine urojet 2 % 11 mL topical gel (XYLOCAINE, GLYDO) 11 mL, URETHRAL, ONCE, 1 dose, On Wed01/23/22 at 0000, FOR EXTERNAL USE ONLY Given12/09/2021 3:00 PM EDT11 mL Summary Purpose Family History Relationship Condition Age at Onset Recorded Date/T augusta father Heart disease Unknown DeceasedUnknownNot SpecifiedDeceasedUnknownMalignant neoplasmUnknown Relationship Condition Age at Onset Recorded Date/T augusta father Heart disease Unknown DeceasedUnknownmotherDeceasedUnknownMalignant neoplasmUnknown Relationship Condition Age at Onset Recorded Date/T augusta father Heart disease Unknown DeceasedUnknownmotherDeceasedUnknownMalignant neoplasmUnknownbrotherSyncope UnknownRenal failureUnknownsisterBalance problemsUnknown Advance Directives Advance Directive Response Recorded Date/ [...] pain ER follow up Amb Documentation CHECK UPReason for VisitChronic venous insufficiency of lower extremity Type 2 diabetes mellitus with hyperglycemia Chronic kidney disease Chronic venous insufficiency of lower extremity Elevated cholesterol HTN (hypertension) Type 2 diabetes mellitus with hyperglycemia Chief Complaint Leg pain ER follow up Amb Documentation CHECK UP pre op clearanceReason for VisitChronic venous insufficiency of lower extremity Type 2 diabetes mellitus with hyperglycemia Chronic kidney disease Chronic venous insufficiency of lower extremity Elevated cholesterol HTN (hypertension) Overweight Type 2 diabetes mellitus with hyperglycemia Chief Complaint Leg pain ER follow up Amb Documentation CHECK UP pre op clearance UnknownReason for VisitChronic venous insufficiency of lower extremity Type 2 diabetes mellitus [...] Documentation CHECK UP pre op clearance Unknown UnknownReason for VisitChronic venous insufficiency of lower extremity Type 2 diabetes mellitus [...] Unknown Unknown Amb Documentation 3 month follow upReason for VisitChronic kidney disease Chronic venous insufficiency of lower extremity Elevated cholesterol HTN (hypertension) Osteomyelitis of right foot Type 2 diabetes mellitus with hyperglycemia Preop exam for internal medicine Chronic kidney disease Chronic venous insufficiency of lower extremity Elevated cholesterol HTN (hypertension) Overweight Type 2 diabetes mellitus with diabetic polyneuropathy Type 2 diabetes mellitus with hyperglycemia Chief Complaint 3 month follow up Flu ShotReason for VisitChronic kidney disease Chronic venous insufficiency of lower extremity Elevated cholesterol HTN (hypertension) Overweight Type 2 diabetes mellitus with diabetic polyneuropathy Type 2 diabetes mellitus with hyperglycemia Chief Complaint Flu Shot wellnessReason for VisitChronic kidney disease Chronic venous insufficiency of lower [...] UA, recheck March 20, 2024 1: 19pm Chief Complaint Admit Date ER follow up February 01, 2024 1:24pm Unknown March 11, 2024 1:33pm I48.3 March 14, 2024 2:51pm Amb Documentation March 17, 2024 12 :47pm UA, recheck March 20, 2024 1: 19pm 3 month f/u-HIGH RISK April 05, 2024 8:25am Reason for Visit Admit Date Aortic stenosis, mild January 31 1:24pm Atrial [...] 14, 2024 2:45pm Subclinical hypothyroidism February 2:45pm Aortic stenosis, mild April 05, 2024 8:25am Atrial flutter April 05, 2024 8 :25am Chronic kidney disease April 05 8:25am Chronic venous insufficiency of lower ex tremity April 05, 2024 8:25am Elevated cholesterol April 05, 2024 8:25am HTN (hypertension) April 05, 2024 8 :25am Subclinical hypothyroidism April 05, 2024 8:25am Type 2 diabetes mellitus with diabetic p olyneuropathy April 05, 2024 8:25am Type 2 diabetes mellitus with hyperglyce francisco April 05, 2024 8:25am Chief Complaint Admit Date ER follow up February 01, 2024 1:24pm Unknown March 11, 2024 1:33pm I48.3 March 14, 2024 2:51pm Amb Documentation March 17, 2024 12 :47pm UA, recheck March 20, 2024 1: 19pm 3 month f/u-HIGH RISK April 05, 2024 8:25am 6 weeks April 24, 2024 12:54pm Reason for Visit Admit Date Aortic stenosis, mild January 31 1:24pm Atrial [...] 14, 2024 2:45pm Subclinical hypothyroidism February 2:45pm Aortic stenosis, mild April 05, 2024 8:25am Atrial flutter April 05, 2024 8 :25am Chronic kidney disease April 05 8:25am Chronic venous insufficiency of lower ex tremity April 05, 2024 8:25am Elevated cholesterol April 05, 2024 8:25am HTN (hypertension) April 05, 2024 8 :25am Subclinical hypothyroidism April 05, 2024 8:25am Type 2 diabetes mellitus with diabetic p olyneuropathy April 05, 2024 8:25am Type 2 diabetes mellitus with hyperglyce francisco April 05, 2024 8:25am Aortic stenosis, mild April 24 12:54pm Atrial flutter April 24, 2024 12:54pm HTN (hypertension) April 24, 2024 12:54pm Subclinical hypothyroidism April 12:54pm Chief Complaint Admit Date Unknown March 11, 2024 1:33pm I48.3 March 14, 2024 2:51pm Amb Documentation March 17, 2024 12 :47pm UA, recheck March 20, 2024 1: 19pm 3 month f/u-HIGH RISK April 05, 2024 8:25am 6 weeks April 24, 2024 12:54pm bp check May 22, 2024 9:4 6am Reason for Visit Admit Date Aortic stenosis, mild March 14 2:45pm Atrial flutter March 14, 2024 2:45pm HTN (hypertension) March 14, 2024 2:45pm Subclinical hypothyroidism February 2:45pm Aortic stenosis, mild April 05, 2024 8:25am Atrial flutter April 05, 2024 8 :25am Chronic kidney disease April 05 8:25am Chronic venous insufficiency of lower ex tremity April 05, 2024 8:25am Elevated cholesterol April 05, 2024 8:25am HTN (hypertension) April 05, 2024 8 :25am Subclinical hypothyroidism April 05, 2024 8:25am Type 2 diabetes mellitus with diabetic p olyneuropathy April 05, 2024 8:25am Type 2 diabetes mellitus with hyperglyce francisco April 05, 2024 8:25am Aortic stenosis, mild April 24 12:54pm Atrial flutter April 24, 2024 12:54pm HTN (hypertension) April 24, 2024 12:54pm Subclinical hypothyroidism April 12:54pm HTN (hypertension) May 22, 2024 9:4 6am Chief Complaint Admit Date 6 weeks April 24, 2024 12:54pm bp check May 22, 2024 9:4 6am 3 month f/u-HIGH Risk July 05, 2024 9 :28am Reason for Visit Admit Date Aortic stenosis, mild April 24 12:54pm Atrial flutter April 24, 2024 12:54pm HTN (hypertension) April 24, 2024 12:54pm Subclinical hypothyroidism April 12:54pm HTN (hypertension) May 22, 2024 9:4 6am Aortic stenosis, mild July 05, 2024 9 :28am Atrial flutter July 05, 2024 9:2 8am Chronic kidney disease July 05, 2024 9:28am Chronic venous insufficiency of lower ex tremity July 05, 2024 9:28am Elevated cholesterol July 05, 2024 9: 28am HTN (hypertension) July 05, 2024 9:2 8am Subclinical hypothyroidism July 05, 9:28am Type 2 diabetes mellitus with diabetic p olyneuropathy July 05, 2024 9:28am Type 2 diabetes mellitus with hyperglyce francisco July 05, 2024 9:28am Chief Complaint Admit Date bp check May 22, 2024 9:4 6am 3 month f/u-HIGH Risk July 05, 2024 9 :28am 4 month f/u August 14, 2024 10:12 am Reason for Visit Admit Date HTN (hypertension) May 22, 2024 9:4 6am Aortic stenosis, mild July 05, 2024 9 :28am Atrial flutter July 05, 2024 9:2 8am Chronic kidney disease July 05, 2024 9:28am Chronic venous insufficiency of lower ex tremity July 05, 2024 9:28am Elevated cholesterol July 05, 2024 9: 28am HTN (hypertension) July 05, 2024 9:2 8am Subclinical hypothyroidism July 05 9:28am Type 2 diabetes mellitus with diabetic p olyneuropathy July 05, 2024 9:28am Type 2 diabetes mellitus with hyperglyce francisco July 05, 2024 9:28am Aortic stenosis, mild August 14, 2024 10: 12am Atrial flutter August 14, 2024 10:12 am HTN (hypertension) August 14, 2024 10:12 am Subclinical hypothyroidism August 14 10:12am Chief Complaint Admit Date 3 month f/u-HIGH [...] 05, 2024 9:2 8am Subclinical hypothyroidism July 05 9:28am Type 2 diabetes mellitus with diabetic [...] with hyperglyce francisco September 21, 2024 9:11am Chief Complaint Admit Date 3 month f/u-HIGH Risk July 05, 2024 9 :28am 4 month f/u August 14, 2024 10:12 am Genital Concerns-HIGH RISK September 21 9:11am Unknown September 22, 2024 8:37 am Chief Complaint Admit Date 4 month f/u August 14, 2024 10:12 am Genital Concerns-HIGH RISK September 21 9:11am Unknown September 22, 2024 8:37 am 3 mo f/u October 06, 2024 8:23 am Reason for Visit Admit Date Aortic stenosis, mild August 14, 2024 10: [...] with hyperglyce francisco September 21, 2024 9:11am Anemia October 06, 2024 8:23 am Aortic stenosis, mild October 06, 2024 8: 23am Atrial flutter October 06, 2024 8:23 am Chronic kidney disease October 06, 2024 8 :23am Chronic venous insufficiency of lower ex tremity October 06, 2024 8:23am Elevated cholesterol October 06, 2024 8:2 3am HTN (hypertension) October 06, 2024 8:23 am Subclinical hypothyroidism October 06 8:23am Type 2 diabetes mellitus with diabetic p olyneuropathy October 06, 2024 8:23am Type 2 diabetes mellitus with hyperglyce francisco October 06, 2024 8:23am Chief Complaint Admit Date Genital Concerns-HIGH RISK September 21 9:11am Unknown September 22, 2024 8:37 am 3 mo f/u October 06, 2024 8:23 am BP concern December 19, 2024 1: 05pm Reason for Visit Admit Date Balanitis September [...] with hyperglyce francisco September 21, 2024 9:11am Anemia October 06, 2024 8:23 am Aortic stenosis, mild October 06, 2024 8: 23am Atrial flutter October 06, 2024 8:23 am Chronic kidney disease October 06, 2024 8 :23am Chronic venous insufficiency of lower ex tremity October 06, 2024 8:23am Elevated cholesterol October 06, 2024 8:2 3am HTN (hypertension) October 06, 2024 8:23 am Subclinical hypothyroidism October 06 8:23am Type 2 diabetes mellitus with diabetic p olyneuropathy October 06, 2024 8:23am Type 2 diabetes mellitus with hyperglyce francisco October 06, 2024 8:23am Reason for Referral Reason Refer for diabetic f oot ulcer and calluses Diagnosis 1 Foot abscess, right (L02.611) Diagnosis 2 Callus of foot (L84) Diagnosis 3 Hammer toe of right foot (M20.41) Referral Organization [facility] tram Referring Provider First Name Campbell Referring Provider Last Name Quentin Referring Provider Specialty Internal Me dicine Referred Organization [facility] Referred Provider Jhon Tejada Referred Address [address] [place], [place],[address] Referred Provider Specialty Podiatry - S urgical [...] or prosecute any alcohol or drug abuse patient.[facility] HospitalIn the event this information is protected by the Federal Confidentiality of Alcohol and Drug Abuse Patient Records regulations: The Federal rules restrict any use of the information to criminally investigate or prosecute any alcohol or drug abuse patient.[facility] HospitalIn the event this information is protected by the Federal Confidentiality of Alcohol and Drug Abuse Patient Records regulations: The Federal rules restrict any use of the information to criminally investigate or prosecute any alcohol or drug abuse patient.[facility] HospitalIn the event this information is protected by the Federal Confidentiality of Alcohol and Drug Abuse Patient Records regulations: The Federal rules restrict any use of the information to criminally investigate or prosecute any alcohol or drug abuse patient.[facility] HospitalIn the event this information is protected by the Federal Confidentiality of Alcohol and Drug Abuse Patient Records regulations: The Federal rules restrict any use of the information to criminally investigate or prosecute any alcohol or drug abuse patient.[facility] HospitalIn the event this information is protected by the Federal Confidentiality of Alcohol and Drug Abuse Patient Records regulations: The Federal rules restrict any use of the information to criminally investigate or prosecute any alcohol or drug abuse patient.[facility] HospitalIn the event this information is protected by the Federal Confidentiality of Alcohol and Drug Abuse Patient Records regulations: The Federal rules restrict any use of the information to criminally investigate or prosecute any alcohol or drug abuse patient.[facility] HospitalIn the event this information is protected by the Federal Confidentiality of Alcohol and Drug Abuse Patient Records regulations: The Federal rules restrict any use of the information to criminally investigate or prosecute any alcohol or drug abuse patient.[facility] HospitalIn the event this information is protected by the Federal Confidentiality of Alcohol and Drug Abuse Patient Records regulations: The Federal rules restrict any use of the information to criminally investigate or prosecute any alcohol or drug abuse patient.[facility] HospitalIn the event this information is protected by the Federal Confidentiality of Alcohol and Drug Abuse Patient Records regulations: The Federal rules restrict any use of the information to criminally investigate or prosecute any alcohol or drug abuse patient.[facility] HospitalIn the event this information is protected by the Federal Confidentiality of Alcohol and Drug Abuse Patient Records regulations: The Federal rules restrict any use of the information to criminally investigate or prosecute any alcohol or drug abuse patient.[facility] HospitalIn the event this information is protected by the Federal Confidentiality of Alcohol and Drug Abuse Patient Records regulations: The Federal rules restrict any use of the information to criminally investigate or prosecute any alcohol or drug abuse patient.[facility] HospitalIn the event this information is protected by the Federal Confidentiality of Alcohol and Drug Abuse Patient Records regulations: The Federal rules restrict any use of the information to criminally investigate or prosecute any alcohol or drug abuse patient.[facility] HospitalIn the event this information is protected by the Federal Confidentiality of Alcohol and Drug Abuse Patient Records regulations: The Federal rules restrict any use of the information to criminally investigate or prosecute any alcohol or drug abuse patient.[facility] HospitalIn the event this information is protected by the Federal Confidentiality of Alcohol and Drug Abuse Patient Records regulations: The Federal rules restrict any use of the information to criminally investigate or prosecute any alcohol or drug abuse patient.[facility] HospitalIn the event this information is protected by the Federal Confidentiality of Alcohol and Drug Abuse Patient Records regulations: The Federal rules restrict any use of the information to criminally investigate or prosecute any alcohol or drug abuse patient.[facility] HospitalIn the event this information is protected by the Federal Confidentiality of Alcohol and Drug Abuse Patient Records regulations: The Federal rules restrict any use of the information to criminally investigate or prosecute any alcohol or drug abuse patient.[facility] HospitalIn the event this information is protected by the Federal Confidentiality of Alcohol and Drug Abuse Patient Records regulations: The Federal rules restrict any use of the information to criminally investigate or prosecute any alcohol or drug abuse patient.[facility] Care Teams (unrecognized sec tion and content) Team Status: Active Member Role Status Dates Campbell Saavedra DO Primary Care Provider Active Team Status: Inactive Member Role Status Dates Campbell Saavedra DO Primary Care Provider Active Start: May 22, 2024 End: May 22, 2024George Kimani Hernandez MDAttending ProviderActiveStart: May 22, 2024 End: May 22, 2024 Team Status: Inactive Member Role Status Dates Campbell Ball , DO Primary Care Provide r, Attending Provider Active Start: July 05, 2024 End: July 05, 2024 Team Status: Inactive Member Role Status Dates Campbell Saavedra DO Primary Care Provider Active Start: August 14, 2024 End: August 14, 2024Gedion Hernandez MDAttending ProviderActiveStart: August 14, 2024 End: August 14, 2024 Team Status: Active Member Role Status Dates Campbell Saavedra DO Primary Care Provider Active Start: January 30, 2024 Mey Carlson , MDAttending ProviderActiveStart: January 30, 2024 Team Status: Active Member Role Status Dates Campbell Saavedra DO Primary Care Provide r, Attending Provider Active Start: January 31, 2024 Team Status: Inactive Member Role Status Dates Campbell Saavedra DO Primary Care Provide r, Attending Provider Active Start: February 01, 2024 End: February 01, 2024 Team Status: Active Member Role Status Dates Campbell Saavedra DO Primary Care Provider Active Start: February 11, 2024 Leticia Milian APRN BCAttending ProviderActiveStart: February 11, 2024 Team Status: Active Member Role Status Dates Campbell Saavedra DO Primary Care Provider Active Start: March 11, 2024 Juan Sal DOAttending ProviderActiveStart: March 11, 2024 Team Status: Inactive Member Role Status Dates Campbell Saavedra DO Primary Care Provider Active Start: March 11, 2024 End: March 11, 2024Jesushant Sal DOAttending ProviderActiveStart: March 11, 2024 End: March 11, 2024 Team Status: Active Member Role Status Dates Campbell Saavedra DO Primary Care Provide r, Attending Provider Active Start: March 12, 2024 Team Status: Inactive Member Role Status Dates Campbell Saavedra DO Primary Care Provider Active Start: March 14, 2024 End: March 14, 2024Gedion Hernandez MDAttending ProviderActive Start: March 14, 2024 End: March 14, 2024 Team Status: Active Member Role Status Dates Campbell Saavedra DO Primary Care Provider Active Start: March 17, 2024 Silvia Au CMAAttending ProviderActiveStart: March 17, 2024 Team Status: Inactive Member Role Status Dates Campbell Saavedra DO Primary Care Provide r, Attending Provider Active Start: March 20, 2024 End: March 20, 2024 Team Status: Inactive Member Role Status Dates Campbell Saavedra DO Primary Care Provide r, Attending Provider Active Start: April 05, 2024 End: April 05, 2024 Team Status: Inactive Member Role Status [...] Active Start: May 15, 2023 End: May 14Alton Horn ProviderActiveStart: May 15, 2023 End: May 15, 2023 Team Status: Inactive Member Role Status Dates Campbell Saavedra DO Primary Care Provide r, Attending Provider Active Start: May 21, 2023 End: May 21, 2023 Team Status: Active Member Role Status Dates Campbell Saavedra DO Primary Care Provider Active Start: May 31, 2023 Hansa Fair ProviderActiveStart: May 31, 2023 Team Status: Inactive Member Role Status Dates Campbell Saavedra DO Primary Care Provide r, Attending Provider Active Start: June 23, 2023 End: June 23, 2023 Team Status: Inactive Member Role Status Dates Campbell Saavedra DO Primary Care Provider Active Alton Lund ProviderActiveTeam MemberRelationshipSpecialtyStart DateEnd Date Ran Houston Jr. PCP - General10/10/09Team MemberRelationshipSpecialtyStart DateEnd Date Ran Houston Jr. PCP - General10/10/09Team MemberRelationshipSpecialtyStart DateEnd Date Ran Houston Jr. PCP - General10/10/09Team MemberRelationshipSpecialtyStart DateEnd Date Campbell Saavedra DO [address] [id number] PCP - GeneralInternal Medicine11/26/21Team MemberRelationshipSpecialtyStart Date End Date Campbell Saavedra, DO [address] [place] [address] PCP - GeneralInternal Medicine11/26/21Team MemberRelationshipSpecialtyStart Date End Date Campbell Saavedra, DO [address] [place] [address] PCP - GeneralInternal Medicine11/26/21Team MemberRelationshipSpecialtyStart Date End Date Campbell Saavedra, DO [address] [place] [address] PCP - GeneralInternal Medicine11/26/21 Team Status: Inactive Member Role Status Dates Campbell Saavedra , Primary Care Provider Active Kaley Lerner ProviderActiveTeam MemberRelationshipSpecialtyStart DateEnd Date Campbell Saavedra, DO [address] [place] [address] PCP - GeneralInternal Medicine11/26/21 Team Status: Inactive Member Role Status Dates Campbell Saavedra , Primary Care Provider Active Alton Damon ProviderActive Team Status: Inactive Member Role Status Dates Campbell Saavedra , Primary Care Provider Active Sam Simons DOAttsmith ProviderActiveTeam MemberRelationshipSpecialty Start DateEnd Date Campbell Saavedra, DO [address] [place] [address] PCP - GeneralInternal Medicine11/26/21Team MemberRelationshipSpecialtyStart Date End Date Campbell Saavedra, DO [address] [place] [address] PCP - GeneralInternal Medicine11/26/21Team MemberRelationshipSpecialtyStart Date End Date Campbell Saavedra, DO [address] [place] [address] PCP - GeneralInternal Medicine11/26/21 Team Status: Active Member Role Status Dates [...] Active Start: July 12, 2023 End: July 11javid Tejada , DPM MSAttending ProviderActiveStart: July 12, 2023 End: July 12, 2023 Team Status: Active Member Role Status Dates Campbell Saavedra DO Primary Care Provider Active Start: July 22, 2023 Jhon Tejada , DPM MSAttending ProviderActiveStart: July 22, 2023 Team Status: Inactive Member Role Status Dates Campbell Saavedra DO Primary Care Provider Active Start: July 22, 2023 End: July 21javid Tejada , DPM MSAttending ProviderActiveStart: July 22, 2023 End: July 22, 2023Team MemberRelationshipSpecialtyStart DateEnd Date Campbell Saavedra DO [address] [place] [address] PCP - GeneralInternal Medicine11/26/21 Team Status: Active Member Role Status Dates Campbell Saavedra DO Primary Care Provider Active Start: July 26, 2023 Leticia Milian APRN BCAttending ProviderActiveStart: July 26, 2023 Team Status: Active Member Role Status Dates Campbell Saavedra DO Primary Care Provider Active Start: August 04, 2023 Hansa Fair ProviderActiveStart: August 04, 2023 Team MemberRelationshipSpecialtyStart DateEnd Date Campbell Saavedra MD [address] [place] [address] PCP - GeneralInternal Grdjzdtx90/4/24Team MemberRelationshipSpecialtyStart Date End Date Campbell Saavedra MD [address] [facility], [place] [id number] PCP - GeneralInternal Vrcpwgju76/4/24Team MemberRelationshipSpecialtyStart Date End Date Campbell Saavedra MD [address] [facility], [place] [phone] PCP - GeneralInternal Saxiixzo60/4/24 Team Status: Inactive Member Role Status Dates Campbell Saavedra DO Primary Care Provide r, Attending Provider Active Start: December 28, 2023 End: December 28, 2023 Team Status: Active Member Role Status Dates Campbell Saavedra DO Primary Care Provide r, Attending Provider Active Start: December 30, 2023 Team MemberRelationshipSpecialtyStart DateEnd Date Campbell Saavedra DO [address] [place] [facility] [place] [address] PCP - GeneralInternal Medicine11/26/21Team MemberRelationshipSpecialtyStart Date End Date Campbell Saavedra MD [address] [facility], [place] [address] PCP - GeneralInternal Jncdbvmi00/4/24Team MemberRelationshipSpecialtyStart Date End Date Campbell Saavedra MD [address] [facility], [place] [address] PCP - GeneralInternal Bxqmiwtv20/4/24Team MemberRelationshipSpecialtyStart Date End Date Campbell Saavedra DO [address] [place] [facility] [place] [address] PCP - GeneralInternal Medicine11/26/21Team MemberRelationshipSpecialtyStart Date End Date Campbell Saavedra MD [address] [facility], [place] [address] PCP - GeneralInternal Sksezapk29/4/24Team MemberRelationshipSpecialtyStart Date End Date Campbell Saavedra MD [address] [facility], [place] [address] PCP - GeneralInternal Atyintci00/4/24Team MemberRelationshipSpecialtyStart Date End Date Campbell Saavedra DO [address] [facility], [place] [phone] PCP - GeneralInternal Medicine11/26/21 Team Status: Active Member Role Status Dates Campbell Saavedra DO Primary Care Provide r, Attending Provider Active Start: April 19, 2024 Team Status: Active Member Role Status Dates Campbell Saavedra DO Primary Care Provider Active Start: April 21, 2024 Leticia Milian APRN BCAttending ProviderActiveStart: April 21, 2024 Team Status: Inactive Member Role Status Dates Campbell Saavedra DO Primary Care Provider Active Start: April 24, 2024 End: April 24, 2024Gedion Hernandez MDAttending ProviderActive Start: April 24, 2024 End: April 24, 2024 Team Status: Active Member Role Status Dates Campbell Saavedra DO Primary Care Provider Active Start: May 03, 2024 Leticia Milian APRN BCAttending ProviderActiveStart: May 03, 2024 Team MemberRelationshipSpecialtyStart DateEnd Date Campbell Saavedra DO [address] [facility], [place] [phone] PCP - [facility] Cent[facility]11/26/21 Team Status: Inactive Member Role Status Dates Campbell Saavedra DO Primary Care Provider Active Start: July 05, 2024 End: July 05lisa Saavedra , DOAttending ProviderActiveStart: July 05, 2024 End: July 05, 2024 Team Status: Inactive Member Role Status Dates Campbell Saavedra DO Primary Care Provider Active Start: September 21, 2024 End: September 21lisa Saavedra , DOAttending ProviderActiveStart: September 21, 2024 End: September 21, 2024 Team Status: Inactive Member Role Status Dates Campbell Saavedra DO Primary Care Provider Active Start: September 22, 2024 End: September 22lisa Saavedra , DOAttending ProviderActiveStart: September 22, 2024 End: September 22, 2024 Team Status: Active Member Role Status Dates Campbell Saavedra DO Primary Care Provider Active Start: September 22, 2024 Camron Omalleyending ProviderActiveStart: September 22, 2024 Team Status: Inactive Member Role Status Dates Campbell Saavedra DO Primary Care Provider Active Start: October 06, 2024 End: October 06lisa Saavedra , Attending ProviderActiveStart: October 06, 2024 End: October 06, 2024Team MemberRelationshipSpecialtyStart DateEnd Date Campbell Saavedra DO [address] [place] [address] PCP - GeneralInternal Medicine11/26/21Team MemberRelationshipSpecialtyStart Date End Date Campbell Saavedra DO [address] [place] [address] PCP - GeneralInternal Bovnoqvl60/4/24Team MemberRelationshipSpecialtyStart Date End Date Campbell Saavedra DO [address] [place] [address] PCP - GeneralS[facility] Medical Centernal Pvaihgve28/4/24 Team Status: Inactive Member Role Status Dates Campbell Saavedra DO Primary Care Provider Active Start: December 19, 2024 End: December 19Camron Bolanosending ProviderActiveStart: December 19, 2024 End: December 19, 2024 Reason for Visit (unrecogniz ed section and content) ReasonCommentsCystoscopy-1ReasonCommentsFoley Cath ProblemHematuriaReason CommentsurodynamicsReasonCommentsFoleyReasonCommentsAppointmentReschedule catheter changeReasonCommentsPatient UpdateReasonCommentsFollow UpReasonComments Refill RequestReasonCommentsConsultReasonCommentsDiabetic Eye ExamReasonComments Follow-upReasonCommentsBlurred VisionReasonCommentsPenile ProblemReasonComments Eye Exam (unrecognized sect ion and content) No Status Records FoundNo Status Records FoundNo Status Records FoundNo Status Records FoundNo Status Records FoundNo Status Records FoundNo Status Records FoundNo Status Records FoundNo Status Records Found INFORMATION SOURCE (unrecogn ized section and content) DATE CREATED AUTHOR 12/13/2021 [facility] DATE CREATED AUTHOR AUTHOR'S ORGANIZ ATION 06/25/2022 [facility] DATE CREATED AUTHOR AUTHOR'S ORGANIZ ATION 12/19/2023 [facility] DATE CREATED AUTHOR AUTHOR'S ORGANIZ ATION 12/26/2023 [facility] DATE CREATED AUTHOR AUTHOR'S ORGANIZ ATION 10/26/2024 [facility] DATE CREATED AUTHOR AUTHOR'S ORGANIZ ATION 11/15/2024 [facility] DATE CREATED AUTHOR AUTHOR'S ORGANIZ ATION 11/21/2024 [facility] EPIC Goals (unrecognized section and content) Goals may [...] BE BASED ON THE PRIMARY CLINICAL RECORDS. [facility] [employer] [facility]. provides no warranty or guarantee of the accuracy or completeness of information in this document.
--- OUTSIDE RECORDS SUMMARY | 2025-01-23 07:41 | XMS_ITS | Clinical Summary ---
Author Organization [facility] Address [address] [place] [address] Care Team Providers Care Animal Taxonomist Name Role Phone Campbell Naranjo Primary Care Provider Allergies Active AllergyReactionsCriticalityNoted DateCommentsCiprofloxacinGI Upset 07/31/2009Sulfa (Sulfonamide Antibiotics)Rash07/31/2009 Medications MedicationSigDispense QuantityRefillsLast FilledStart DateEnd DateStatus gabapentin(NEURONTIN 300 MG CAP) Take one(1) tablet two(2) times daily. 0 ctive lisinopril(PRINIVIL 10 MG TAB) Take 20 mg by mouth once daily. 0 ctive Additional Information Patient taking differently: 5 mgORAL DAILY, Reason: Dosage Adjustment, Reported on 10/24/2024 glipiZIDE 5 mg ORAL tablet Take 2.5 mg by mouth once daily.ctive Glucosamine HCl 1,500 mg tab Take 1,500 mg by mouth.05/25/2019Active amLODIPine (NORVASC) 2.5 mg tablet Amlodipine Active 5 MG PO Daily December 11, 2021 12:am12/11/2021ctive aspirin 81 mg cap Aspirin Active 81 MG PO Daily December 11, 2021 12:0012/11/2021ctive lovastatin 40 mg tablet Lovastatin Active 40 MG PO Daily December 11, 2021 12:00am05/25/2019Active doxycycline hyclate (VIBRAMYCIN) 100 mg capsule 2Active TURMERIC ORAL Take by mouth.Active multivitamin (MULTIPLE VITAMINS ORAL) Take by mouth.Active apixaban (ELIQUIS) 2.5 mg tab(s) 5 mg two times a day.4Active metoprolol succinate ER (TOPROL XL) 25 mg 24 hr tablet Take 1 tablet by mouth every afternoon.4Active vit A/vit C/vit E/zinc/copper (PRESERVISION AREDS ORAL) Take by mouth.Active tamsulosin (FLOMAX) 0.4 mg Take 1 capsule by mouth two times a day. 180 capsule 5Active Active Problems ProblemNoted DateDiagnosed DatePost-operative state12/12/2009Ulcer of other part of foot10/02/2009Type II or unspecified type diabetes mellitus with neurological manifestations, not stated as uncontrolled(250.60)07/31/2009 Encounters DateTypeDepartmentCare TyruNfzilbxnsei38/12/2025 3:00 PM EDTOffice Visit Urology [address] [place] [address] Caro Milian, FLORAL DESIGNER SALESPERSON.DEVELOPMENT ASSOCIATE Benign prostatic hyperplasia, unspecified whether lower urinary tract symptoms present (Primary Dx); Weak urinary stream; Balanitisfrom Last 3 Months Social History Tobacco UseTypesPacks/DayYears UsedDateSmoking Tobacco: FormerCigarettes1.514 03/15/1957 - 03/15/1971Smokeless Tobacco: Never Tobacco Cessation:Counseling Given: Not Answered Alcohol UseStandard Drinks/WeekCommentsYes0 (1 standard drink = 0.6 oz pure alcohol)socialArea Deprivation IndexAnswerDate RecordedNational Score (1-100), lower number is lower ltdh430807/28/2022State Score (1-10), lower number is lower gbaa2743Data from: https://www.neighborhoodatlas.medicine.[facility].edu/. Last address used for [address]Sex and Gender Information ValueDate RecordedSex Assigned at BirthNot on fileLegal OfdHtsy02/02/2012 8:28 AM ESTGender IdentityNot on fileSexual OrientationNot on file Last Filed Vital Signs Vital SignReadingTime TakenCommentsBlood Leyqdxil793/4908 3:03 PM EDT Pwcpy3747/12/2025 3:03 PM BWKOfoyjkcdbkn66.8 ??C (98.2 ??F)11/26/2021 10:17 PM EDTRespiratory Ecwg5982 2:41 PM EDTOxygen Thfyiopoai79%11/26/2021 10:17 PM EDTInhaled Oxygen Concentration--Depfqd80.8 kg (220 lb)10/24/2024 3:03 PM EDT Vghaua325.5 cm (6' 3 )11/26/2021 7:22 PM EDTBody Mass Index27. 7:22 PM EDT Plan of Treatment DateTypeDepartmentCare Team (Latest Contact Info)Iyuvxwgixxc61/14/2026 1:30 PM EDTOffice Visit Urology [address] [place], [place] [phone] Caro Milian, FLORAL DESIGNER SALESPERSON.DEVELOPMENT ASSOCIATE [address] [place], [place] [phone] Return in about 8 months (around 06/24/2025) for rto for evaluation of BPH w obs/luts, AUA, PVR.Health MaintenanceDue DateLast DoneCommentsAnxiety Screening 1956Depression Jvbdedwyz62/11/1957Medicare Annual Wellness Visit03/15/2003 DTaP,Tdap,Td Vaccine (3 - Tdap)/, 01/28/2012dvance Directive Evlewylmjg13/01/2025Covid-19 Vaccine ( season)/08/2021, 06/16/2021, 12/09/2020, Additional history existsInfluenza Vaccine (#1) /04/2023, 12/01/2022, 12/19/2021, Additional history existsDiabetes Lmiuonwdf31/, 11/07/2021, 10/24/2009Pneumococcal Vaccine: 50+ Dbmxazcar05/17/2016, 01/20/2012, 05/18/2011Shingrix ZnptvgbJaymnzdsm47/01/2019, 11/04/2018RSV WuqdnfpLkzsljaay41/30/2024 Procedures Procedure NamePriorityDate/TimeAssociated DiagnosisCommentsHEMOGLOBIN D6EJmtadcv 07/26/2023 8:37 AM EDT Type 2 diabetes mellitus with hyperglycemia, unspecified whether senior living insulin use (HCC) from Last 3 Months or Most Recently Relevant to Health Maintenance Results * (ABNORMAL) HEMOGLOBIN A1C (07/26/2023 8:37 AM EDT)ComponentValueRef RangeTest MethodAnalysis TimePerformed AtPathologist SignatureHemoglobin A1C6.4(H)4.3 - 5.6 %07/26/2023 8:10 PM [facility]:[place] Diabetes Association guidelines indicate that patients with HgbA1c in the range 5.7-6.4% are at increased risk for development of diabetes, and intervention by lifestyle modification may be beneficial. HgbA1c greater or equal to 6.5% is considered diagnostic of diabetes.Estimated Average Glucose 137mg/dL07/26/2023 8:10 PM [facility]Comment:eAG: (Estimated average glucose) is a calculated value from HgbA1c and is technical support representative of the average blood glucose level in the last 2-3 month period.Specimen (Source)Anatomical Location / LateralityCollection Method / VolumeCollection TimeReceived TimeBloodBLOOD SPECIMEN / UnknownVenipuncture / Yimdsbn0307/26/2023 8:37 AM EDT07/26/2023 8:37 AM EDT Narrative Authorizing ProviderResult TypeResult StatusBenmonika Naranjo DOLABORATORYFinal ResultPerforming OrganizationAddressCity/State/ZIP CodePhone Number [facility] [address] [address], from Last 3 Months or Most Recently Relevant to Health Maintenance Insurance MemberSubscriberPlan / Payer (Effective 2003-Present)Name:Norberto Vogt Member ID:[id number] Relation to Subscriber:SelfName:Norberto Vogt Subscriber ID:[id number] Payer ID:Not on file Group ID:Not on file Type:Medicare Address: [place] [id number] Care Teams Team MemberRelationshipSpecialtyStart DateEnd Date Campbell Naranjo DO [address] [place], [place] [phone] PCP - GeneralInternal Medicine11/26/21
--- OUTSIDE RECORDS SUMMARY | 2025-01-23 07:41 | XMS_ITS | Clinical Summary ---
Author Organization [facility] Address [address] [place] [address] Care Team Providers Care Embossed Or Impressed Lettering Painter Name Role Phone Campbell Naranjo DO Primary Care Provider [phone] Allergies Active AllergyReactionsCriticalityNoted PkihWvuvowrcHjjpxefhgnvyl26/19/2010 Other Reaction(s): GI Upset, Hives, Unknown Sulfa AmduzobwhzwLbwhTjv51/19/2010 Other Reaction(s): Unknown Medications MedicationSigDispense QuantityRefillsLast FilledStart DateEnd DateStatus aspirin 81 MG chewable tablet 1 (one) time each day at the same timeActive gabapentin (Neurontin) 300 MG capsule 1 capsule 1 (one) time each day at the same time08/04/2023ctive glipiZIDE XL (Glucotrol XL) 2.5 MG 24 hr tablet 1 (one) time each day at the same time08/04/2023ctive lisinopril 20 MG tablet 1 (one) time each day at the same time09/05/2023ctive lovastatin (Mevacor) 40 MG tablet 1 (one) time each day at the same time06/17/2023ctive tamsulosin (Flomax) 0.4 MG 24 hr capsule 1 capsule 1 (one) time each day at the same time10/12/2023ctive Eliquis 5 MG tablet Take 5 mg by mouth in the morning and 5 mg before bedtime.01/31/2024ctive Active Problems ProblemNoted DateDiagnosed 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 12/17/2023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 of both eyes12/17/2023Optic pyhpxko6112/17/2023ry eyes12/17/2023lepharitis of upper and lower eyelids of both eyes12/17/2023 Encounters DateTypeDepartmentCare XvxiMlhkhhadolo65/08/2025 1:30 PM EDTOffice Visit [facility] [address] [place] [phone] Willem Zamudio, DO 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 of both eyes (Primary Dx); Optic atrophy; 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); Dry eyes; Blepharitis of upper and lower eyelids of both eyes, unspecified type11/20/2024 Bamboo flowsheet [facility] [address] [place] [phone] Willem Zamudio, 11/20/20249917Wregnx66/07/2025Travelfrom Last 3 Months Family History Medical HistoryRelationNameCommentsHeart diseaseFatherCancerMotherRuth Vogt RelationNameStatusCommentsFatherDeceasedMotherRuth HartDeceased Social History Tobacco UseTypesPacks/DayYears UsedDateSmoking Tobacco: NeverSmokeless Tobacco: Never Tobacco Cessation:Counseling Given: Not Answered Alcohol UseStandard Drinks/WeekCommentsYes0 (1 standard drink = 0.6 oz pure alcohol)2-3 times a week.Sex and Gender InformationValueDate RecordedSex Assigned at BirthNot on fileLegal UveWlxd5905/27/2022 7:05 PM EDTGender Identity Not on fileSexual YwugfcwpueiMhtkeitz04/03/2024 9:36 AM EDT Last Filed Vital Signs Vital SignReadingTime TakenCommentsBlood Sreilnuy394/63003/25/2022 12:00 PM EST Pulse--Temperature--Respiratory Rate--Oxygen Saturation--Inhaled Oxygen Concentration--Fyrrer223 kg (226 lb)05/17/2018 12:00 PM QVEDqctdm484.5 cm (6' 3 )2022 12:00 PM ESTBody Mass Index28.25005/17/2018 12:00 PM EST Plan of Treatment Health MaintenanceDue DateLast DoneCommentsPneumococcal Vaccine: 65+ Years (2 of 2 - PCV)/07/2011COVID-19 Vaccine ( - season)2024 06/16/2021, 12/09/2020, 05/03/2020, Additional history existsInfluenza Vaccine (#1)/04/2023, 12/19/2021, 12/09/2020, Additional history exists Procedures Procedure NamePriorityDate/TimeAssociated DiagnosisCommentsOCT, OPTIC NERVE - OU - BOTH JTNJRqfhvgd11/08/2025 2:22 PM EDT Optic atrophy from Last 3 Months Results * OCT, Optic Nerve - OU - Both Eyes (11/20/2024 2:22 PM EDT)Anatomical Region LateralityModalityHeadOptical Coherence Tomography Narrative 11/20/2024 2:22 PM EDT Right Eye Images reviewed and comparison made to baseline, Images reviewed. To assess optic nerve function and for use in future follow-up. Reliability: good and adequate. Left Eye Images reviewed and comparison made to baseline, Images reviewed. To assess optic nerve function and for use in future follow-up. Reliability: good and adequate. Notes Nerve fiber layer (NFL) thinning left eye (OS). Stable. Authorizing ProviderResult TypeResult StatusJoluis alfredo Zamudio DOOPHTH TOMOGRAPHY Edited Result - Final from Last 3 Months Insurance Care Teams Team MemberRelationshipSpecialtyStart DateEnd Date Campbell Naranjo DO [address] [place] [address] PCP - [facility] Hihyjdzb43/4/24
--- OUTSIDE RECORDS SUMMARY | 2025-01-23 07:41 | XMS_ITS | Clinical Summary ---
Author Organization [facility] Address [address] [place] [address] Care Team Providers Care Spikemaking Supervisor Name Role Phone Unavailable Primary Care Provider Unavailabl e Social History Tobacco UseTypesPacks/DayYears UsedDateSmoking Tobacco: Never AssessedSex and Gender InformationValueDate RecordedSex Assigned at BirthNot on fileLegal Sex Male09/10/2021 10:46 PM EDTGender IdentityNot on fileSexual OrientationNot on file Plan of Treatment Health MaintenanceDue DateLast DoneCommentsMedicare Annual Wellness (AWV) 1938Depression Ctswajaid07/11/1951Adult Hgjhdpb27/11/1961Pneumococcal Vaccine: 50+ Years (1 of 1 - PCV)1988Zoster Vaccines (1 of 2)1988 Fall Risk Yupxcgeek70/11/2004COVID-19 Vaccine ( - 2024- season)2024 Influenza Vaccine (#1)2024HIB VaccinesAged OutNo longer eligible based on patient's age to complete this topicHPV VaccinesAged OutNo longer eligible based on patient's age to complete this topicIPV VaccinesAged OutNo longer eligible based on patient's age to complete this topicMeningococcal B VaccineAged OutNo longer eligible based on patient's age to complete this topicMeningococcal VaccineAged OutNo longer eligible based on patient's age to complete this topic Rotavirus VaccinesAged OutNo longer eligible based on patient's age to complete this topic Insurance
[2025-01-23 08:07] LABS: Hematocrit 38.5 % (42.0-54.0); Hemoglobin 13.0 g/dL (14.0-18.0); Immature Granulocytes Abs Auto 0.03 10^3/uL (0.00-0.03); Immature Granulocytes Pct Auto 0.4 % (0.0-0.5); Lymphocytes Absolute Auto 1.7 10^3/uL (1.2-3.8); Mean Corpuscular HGB Conc 33.8 g/dL (29.9-35.2); Mean Corpuscular Hemoglobin 31.2 pg (25.9-34.0); Mean Corpuscular Volume 92.3 fL (80.0-94.0); Platelet Count 227 10^3/uL (150-450); Red Blood Count 4.17 10^6/uL (4.70-6.10); White Blood Count 6.9 10^3/uL (4.0-11.0)
[2025-01-23 08:43] LABS: Microalbum Creatinine Ratio Ur 92.5 mg/g (0.0-29.9)
[2025-01-23 09:12] LABS: Alanine Aminotransferase 29 U/L (16-63); Albumin Globulin Ratio 1.2; Albumin Level 3.7 g/dL (3.4-5.0); Alkaline Phosphatase 60 U/L (46-116); Anion Gap 12.9; Aspartate Amino Transferase 20 U/L (15-37); Blood Urea Nitrogen 21.0 mg/dL (7.0-18.0); Calcium 8.6 mg/dL (8.5-10.1); Carbon Dioxide 27.8 mmol/L (21.0-32.0); Chloride 101 mmol/L (98-107); Cholesterol 170 mg/dL (<=200); Estimated GFR (African America >60 (>=60 mL/min/1.73m^2); Estimated GFR (Non-African Ame 58 (>=60 mL/min/1.73m^2); Globulin 3.1 g/dL; Glucose 111 mg/dL (74-106); HDL Cholesterol 50 mg/dL (40-60); Potassium 4.7 mmol/L (3.5-5.1); Sodium 137 mmol/L (136-145); TSH W/ REFLEX FT4 6.389 uIU/mL (0.358-3.740); Total Protein 6.8 g/dL (6.4-8.2); Triglycerides 128 mg/dL (<=150); VLDL CHOLESTEROL 25.6 mg/dL
[2025-01-23 10:16] LABS: Ferritin 30.0 ng/mL (26.0-388.0); Folate 29.00 ng/mL (8.60-58.90)
[2025-01-24 05:07] LABS: Vitamin B12 474 pg/mL (232-1245)
[2025-01-25 16:09] LABS: Albumin 3.8 g/dL (2.9-4.4); Alpha-1-Globulin 0.2 g/dL (0.0-0.4); Alpha-2-Globulin 0.8 g/dL (0.4-1.0); Free Kappa Lt Chains,S 21.5 mg/L (3.3-19.4); Free Lambda Lt Chains,S 33.6 mg/L (5.7-26.3); Gamma Globulin 0.7 g/dL (0.4-1.8); Immunoglobulin A, Qn, Serum 169 mg/dL (61-437); Kappa/Lambda Ratio,S 0.64 (0.26-1.65)
== END 2025-01-23 07:33 | disposition home or self-care (01) ==
LOC: LAB 07:38
PROVIDERS: PCP Internal Medicine; Visit Provider Internal Medicine
DX: D64.9 Anemia, unspecified (principal); R53.83 Other fatigue; N18.31 Chronic kidney disease, stage 3a; E11.65 Type 2 diabetes mellitus with hyperglycemia; E78.00 Pure hypercholesterolemia, unspecified; E03.8 Other specified hypothyroidism; I12.9 Hypertensive chronic kidney disease with stage 1 through stage 4 chronic kidney disease, or unspecified chronic kidney disease
CPT/HCPCS: 36415; 80053; 80061; 82043; 82570; 82607; 82728; 82746; 82784; 83036; 83521; 84155; 84165; 84439; 84443; 85025; 86334

== ENCOUNTER 2025-01-25 13:26 | Outpatient (OUT) | payer MEDICARE, SELFPAY ==
--- OUTSIDE RECORDS SUMMARY | 2024-04-27 08:40 | XMS_ITS ---
Author Organization The [facility] in [place] Address [address] [place] [address] Care Team Providers Care Screen Printing Equipment Setter Name Role Phone Campbell Naranjo DO Primary Care Provider Unavaila Randa Carrillo Unavailable [phone] REASON FOR VISIT Nail Care Encounters Encounter Location Date Provider Diagnosis [facility] (PODIATRY) [address] [place] [address] [place] [address] 04/27/2024 Randa Gaston Plan Of Treatment No Information Progress Notes * Norberto WASHINGTONDOB:1940 (84 yo M)Acc No.[id number]:04/27/2024 UNLOCKED PROGRESS NOTE Nurse Visit Patient: Norberto GILLIAM :?RITU HoCDOB:1940???Age:84 Y ???Sex:MaleDate:04/27/2024Phone:[phone]:[address] [id number]:Morgan Rodríguez In:01:35 PM ESTCheck Out:02:05 PM EST Subjective: * Chief Complaints: * 1 . Nail Care. * Medical History: Objective: * Vitals: Assessment: Plan: * Treatment: * * Electronic signature of Randa Gaston PA-C on 01/25/2025 at 01:29 PM ESTSign off status: PendingVisit Status:?CHK (Check Out) * Provider: Andrew Gaston PA-C Date: 0 04/27/2024 Generated for Printing/Faxing/eTransmitting on:?01/25/2025 01:29 PM EST
--- OUTSIDE RECORDS SUMMARY | 2025-01-25 13:30 | XMS_ITS | Clinical Summary ---
Author Organization [facility] Address [address] [place] [address] Care Team Providers Care And Taxi Instructor Bus Trolley Name Role Phone Campbell Naranjo Primary Care Provider [phone] Allergies Active AllergyReactionsCriticalityNoted DateCommentsCiprofloxacinGI Upset 07/31/2009Sulfa (Sulfonamide [...] 12:00am05/25/2019Active doxycycline hyclate (VIBRAMYCIN) 100 mg capsule 12/26/2021ctive TURMERIC ORAL Take by mouth.Active multivitamin (MULTIPLE [...] with neurological manifestations, not stated as uncontrolled(250.60)07/31/2009 Social History Tobacco UseTypesPacks/DayYears UsedDateSmoking Tobacco: FormerCigarettes1.514 03/15/1957 - 03/15/1971Smokeless Tobacco: Never Tobacco Cessation:Counseling Given: Not Answered Alcohol UseStandard Drinks/WeekCommentsYes0 (1 standard drink = 0.6 oz pure alcohol)socialArea Deprivation IndexAnswerDate RecordedNational Score (1-100), lower number is lower udvh250107/28/2022State Score (1-10), lower number is lower uhzl1243Data from: https://www.neighborhoodatlas.medicine.[facility].edu/. Last address used for [address]Sex and Gender Information ValueDate RecordedSex Assigned at BirthNot on fileLegal UzfArkf13/02/2012 8:28 AM ESTGender IdentityNot on fileSexual OrientationNot on file Last Filed Vital Signs Vital SignReadingTime TakenCommentsBlood Oahvhtot688/4908 3:03 PM EDT Jbwfe7682/12/2025 3:03 PM GGQFmdiuocitwr86.8 ??C (98.2 ??F)11/26/2021 10:17 PM EDTRespiratory Nzoi9527 2:41 PM EDTOxygen Sqhltutopw30%11/26/2021 10:17 PM EDTInhaled Oxygen Concentration--Gjkhmb73.8 kg (220 lb)10/24/2024 3:03 PM EDT Brnqws285.5 cm (6' 3 )11/26/2021 7:22 PM EDTBody Mass Index27. 7:22 PM EDT Plan of Treatment DateTypeDepartmentCare Team (Latest Contact Info)Tzfakswffru82/14/2026 1:30 PM EDTOffice Visit Urology [address] [place] [address] Caro Milian, RESIDENTIAL INSTRUCTOR.COLLISION ESTIMATOR [address] [place] [address] Return in about 8 months (around 06/24/2025) for rto for evaluation of BPH w obs/luts, AUA, PVR.Health MaintenanceDue DateLast DoneCommentsAnxiety Screening 1956Depression Hrvugshpp15/11/1957Medicare Annual Wellness Visit03/15/2003 DTaP,Tdap,Td Vaccine (3 - Tdap)/, 01/28/2012dvance Directive Scsddqcjlh45/01/2025ovid-19 Vaccine ( season)/08/2021, 06/16/2021, 12/09/2020, Additional history existsInfluenza Vaccine (#1) /04/2023, 12/01/2022, 12/19/2021, Additional history existsDiabetes Alpvxbtsf80/, 11/07/2021, 10/24/2009Pneumococcal Vaccine: 50+ Eombndvpq27/17/2016, 01/20/2012, 05/18/2011Shingrix IccfzgdJazbzsbjw02/01/2019, 11/04/2018RSV JptsaqaTicrkdyrh33/30/2024 Procedures Procedure NamePriorityDate/TimeAssociated DiagnosisCommentsHEMOGLOBIN I4QHqkezhw 07/26/2023 8:37 AM EDT Type 2 diabetes mellitus with hyperglycemia, unspecified whether intermediate project manager insulin use (HCC) from Last 3 Months or Most Recently Relevant to Health Maintenance Results * (ABNORMAL) HEMOGLOBIN A1C (07/26/2023 8:37 AM EDT)ComponentValueRef RangeTest MethodAnalysis TimePerformed AtPathologist SignatureHemoglobin A1C6.4(H)4.3 - 5.6 %07/26/2023 8:10 PM [facility]Comment:[place] Diabetes Association guidelines indicate that patients with HgbA1c in the range 5.7-6.4% are at increased risk for development of diabetes, and intervention by lifestyle modification may be beneficial. HgbA1c greater or equal to 6.5% is considered diagnostic of diabetes.Estimated Average Glucose 137mg/dL07/26/2023 8:10 PM [facility]Comment:eAG: (Estimated average glucose) is a calculated value from HgbA1c and is cash applications representative of the average blood glucose level in the last 2-3 month period.Specimen (Source)Anatomical Location / LateralityCollection Method / VolumeCollection TimeReceived TimeBloodBLOOD SPECIMEN / UnknownVenipuncture / Ezlbsaq9807/26/2023 8:37 AM EDT07/26/2023 8:37 AM EDT Narrative Authorizing ProviderResult TypeResult StatusBenmonika Naranjo DOLABORATORYFinal ResultPerforming OrganizationAddressCity/State/ZIP CodePhone Number [facility] [address] [place] [address], from Last 3 Months or Most Recently Relevant to Health Maintenance Insurance Care Teams Team MemberRelationshipSpecialtyStart DateEnd Date Campbell Naranjo DO [address] [facility], [place] [phone] PCP - GeneralInternal Medicine11/26/21
--- OUTSIDE RECORDS SUMMARY | 2025-01-25 13:30 | XMS_ITS | Patient Health Record ---
Author Organization [facility] in [place] Address [address] [place] [address] Care Team Providers Care Medical Esthetician Name Role Phone Campbell Naranjo DO Primary Care Provider Jhon Cassidy Unavailable [phone] Randa Gaston Unavailable [phone] Allergies Allergen (clinical drug ingredient) Drug/Non Drug [...] due to ty pe 2 diabetes mellitus (2907615007371) Type 2 diabetes mellitus with foot ulcer (E11.621) ActiveconfirmedProblemChronic pain (13628741)Other chronic pain (G89.29)Active confirmedProblemNon-pressure chronic ulcer of other part of right foot limited to breakdown of skin (L97.511)ActiveconfirmedProblemDyslipidemia (836694207) Dyslipidemia (E78.5)ActiveconfirmedProblemHypothyroidism (05827830) Hypothyroidism (E03.9)ActiveconfirmedProblemIron deficiency anemia (50552653) Anemia, iron deficiency (D50.9)ActiveconfirmedProblem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)ActiveconfirmedProblemFoot callus (322931756)Callus of foot (L84)ActiveconfirmedProblemLong-term current use of insulin (032222591) Long-term insulin use (Z79.4)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 (042275667)Type 2 diabetes mellitus with diabetic polyneuropathy, 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)Activeconfirmed ProblemEssential hypertension (78726439)BP (high blood pressure) (I10)Active confirmedProblemAcquired hammer toe of right foot (1472151402735632)Hammertoe of right foot (M20.41)ActiveconfirmedProblemArthritis of left foot (8250905893946927)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)ActiveconfirmedProblemChronic ulcer of great [...] healing of toe amputation stump (T87.89)ActiveconfirmedProblemDiabetes mellitus (83219539)Diabetes mellitus (E11.9)ActiveconfirmedProblemChronic ulcer of right foot (disorder) (73105800388096886)Chronic ulcer of right foot with fat layer exposed (L97.512)Activeconfirmed Vital Signs Heart Rate 74 /min 01/26/2024 Etucirwzkkw03.9 degrees Fgwdnjlrmp10/13/4817Uzlsqklj88 %01/26/20241316Nhvacs98 in 01/26/2024 Encounters Encounter Location Date Provider Diagnosis [facility] ([facility] [address] [place] [address] [place] [address] 01/26/2024 Jhon Tejada Type 2 diabetes mellitus with diabetic polyneuropathy, without long-term current use of insulin E11.42 and Hammertoe of right foot M20.41 [facility] ([facility]) [address] [place] [address] [place] [address] 04/27/2024 Randa Gaston Assessments Encounter Date Diagnosis [...] End Date [place]IC[place] [address] [place] [address] [id number] Flex Vogt - patient is the ckxjtlg20 2003 Medical (General) History Medical History History ICD Code diabetes mellitus hypertensioniron deficiency anemiaSurgical History Surgery Date(Month/Year) bilateral partial toe amputations 2023
--- OUTSIDE RECORDS SUMMARY | 2025-01-25 13:30 | XMS_ITS | Clinical Summary ---
Author Organization [facility] Healthcare Address [address] [place] [address] Care Team Providers Care Clinical Counselor Name Role Phone Campbell Naranjo DO Primary Care Provider [phone] Allergies Active AllergyReactionsCriticalityNoted NyisFyhnkhauCvclwhbggdxyn85/19/2010 Other Reaction(s): GI Upset, Hives, Unknown Sulfa RzbkmcxalvwUkqtGio49/19/2010 Other Reaction(s): Unknown Medications MedicationSigDispense QuantityRefillsLast FilledStart [...] nonexudative age-related macular degeneration of both eyes12/17/2023Optic iushiym4612/17/2023ry eyes12/17/2023lepharitis of upper and lower eyelids of both eyes12/17/2023 Encounters DateTypeDepartmentCare DdilCfcojxmqqrh69/08/2025 1:30 PM EDTOffice Visit [facility] [address] [place] [id number] Willem Zamudio, DO 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 of both eyes (Primary Dx); Optic atrophy; 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); Dry eyes; Blepharitis of upper and lower eyelids of both eyes, unspecified type11/20/2024 Bamboo flowsheet [facility] [address] [place] [id number] Willem Zamudio, 11/20/20242068Webebh56/07/2025Travelfrom Last 3 Months Family History Medical HistoryRelationNameCommentsHeart diseaseFatherCancerMotherRuth Vogt RelationNameStatusCommentsFatherDeceasedMotherRuth HartDeceased Social History Tobacco UseTypesPacks/DayYears UsedDateSmoking Tobacco: NeverSmokeless Tobacco: Never Tobacco Cessation:Counseling Given: Not Answered Alcohol UseStandard Drinks/WeekCommentsYes0 (1 standard drink = 0.6 oz pure alcohol)2-3 times a week.Sex and Gender InformationValueDate RecordedSex Assigned at BirthNot on fileLegal DrsSsyd0005/27/2022 7:05 PM EDTGender Identity Not on fileSexual PwlsufgwstjAcgezffk57/03/2024 9:36 AM EDT Last Filed Vital Signs Vital SignReadingTime TakenCommentsBlood Obxmcuzn578/63003/25/2022 12:00 PM EST Pulse--Temperature--Respiratory Rate--Oxygen Saturation--Inhaled Oxygen Concentration--Tpoohi456 kg (226 lb)05/17/2018 12:00 PM WRLKjahqe948.5 cm (6' 3 )2022 12:00 PM ESTBody Mass Index28.25005/17/2018 12:00 PM EST Plan of Treatment Health MaintenanceDue DateLast DoneCommentsPneumococcal Vaccine: 65+ Years (2 of 2 - PCV)/07/2011COVID-19 Vaccine ( - season)2024 06/16/2021, 12/09/2020, 05/03/2020, Additional history existsInfluenza Vaccine (#1)/04/2023, 12/19/2021, 12/09/2020, Additional history exists Procedures Procedure NamePriorityDate/TimeAssociated DiagnosisCommentsOCT, OPTIC NERVE - OU - BOTH PSYBCbfowoj86/08/2025 2:22 PM EDT Optic atrophy from Last [...] Campbell Naranjo DO [address] [place] [address] [facility] [address] [facility] [address] Pnytjgmz81/4/24
--- OUTSIDE RECORDS SUMMARY | 2025-01-25 13:30 | XMS_ITS | Clinical Summary ---
Author Organization [facility] Address [address] [place] [address] Care Team Providers Care Garden Equipment Mechanic Name Role Phone Unavailable Primary Care Provider Unavailabl e Social History Tobacco UseTypesPacks/DayYears UsedDateSmoking Tobacco: Never AssessedSex and Gender InformationValueDate RecordedSex Assigned at BirthNot on fileLegal Sex Male09/10/2021 10:46 PM EDTGender IdentityNot on fileSexual OrientationNot on file Plan of Treatment Health MaintenanceDue DateLast DoneCommentsMedicare Annual Wellness (AWV) 1938Depression Dcdgyqhnd30/11/1951Adult Vxpcxak93/11/1961Pneumococcal Vaccine: 50+ Years (1 of 1 - PCV)1988Zoster Vaccines (1 of 2)1988 Fall Risk Pogehecof05/11/2004COVID-19 Vaccine ( - 2024- season)2024 Influenza Vaccine [...]
--- OUTSIDE RECORDS SUMMARY | 2025-01-25 13:34 | XMS_ITS | CCD ---
Author Organization [facility] Care Team Providers Care Agricultural Sales Representative Name Role Phone Ran Houston Jr. Primary Care Provider Unava ilable RAN HOUSTON JR Primary Care Unavailable KEELY SANCHEZ Attending Unavailable CAMPBELL SAAVEDRA Primary Care Unavailable Campbell Saavedra DO Primary Care Provider DO Campbell Saavedra Primary Care Provider MD Davis Cervantes Emergency Provider [phone] DO Sam Simons Emergency Provider DO Sam [...] Provider Tupa, DO [place] Emergency Provider [phone] Campbell Saavedra DO E Primary Care Provider [...] Unavailable Campbell Saavedra DO Primary Care Provider Pay DO, Juan Attending Provider Keely Hernandez MD Attending Provider Quentin BORREGO, Campbell Primary Care Provider Pay DO, Juan Attending Provider Keely Hernandez MD Attending Provider Quentin BORREGO, Campbell Primary Care Provider [phone] Quentin BORREGO, Campbell Attending Provider Keely Hernandez MD Attending Provider Campbell Saavedra [...] Unavailable Keely Hernandez Admitting Campbell Lara DO E Primary Care Provider STERLING TORRES Attending Unavailable STERLING TORRES Attending Unavailable STERLING TORRES Attending Unavailable STERLING TORRES Attending Unavailable Campbell Saavedra DO Primary Care Provider Campbell Saavedra DO Primary Care Provider Campbell Saavedra DO Attending Provider Allergies Allergy ClassificationReported Allergen(s)Allergy TypeDate of OnsetReaction(s) Facility (20 sources)Ciprofloxacin; Translations: [CIPROFLOXACIN]Drug Lgdltii08-83-9173GM kirk Trevizo Weal (disorder)[facility] (20 sources)Sulfonamides (Antibiotic); Translations: [SULFA (SULFONAMIDE ANTIBIOTICS)]Propensity to adverse craxhdhqa53-11-9304Ueiu, [facility] (2 sources)Ciprofloxacin; Translations: [Cipro][facility]ergyThe [facility] ([facility] source)Sulfonamides (Antibiotic)Drug allergy (disorder)[facility] (1 source)Allergies ReconciledPropensity to adverse reactionsBrowsarity Other (1 source)patient allergy list reviewed by nurse or physiciaPropensity to adverse clrhilqcb71-00-8880Dbojmbh:[employer] Other (2 sources)Sulfonamides (Antibiotic); Translations: [sulfa drugs]Propensity to adverse reactions (disorder)Weal (disorder)[facility] Repository (1 source)CiprofloxacinDrug Vdfyutf12-50-5284ZnwsbndssMer[facility] (1 source)Sulfonamides (Antibiotic)Drug allergy (disorder)56-31-0918WxextaiahMercy Health St[facility] Medications Current Medications MedicationDrug Class(es)DatesSig (Normalized)Sig (Original)ascorbic acid 226 mg / beta carotene 69419 unt / cuprous oxide 0.8 mg / dl-alpha tocopheryl acetate 200 unt / zinc oxide 34.8 mg oral capsule (5 sources)Vitamin CStart: 37-33-2745tylb 1 capsule by mouth twice dailyVitamins A,C,F-Romp-Iheuyz (Preservision Areds) 4,296 mcg-226 mg-90 mg capsule Active 1 CAP PO Twice daily December 27, 2023 11:00pm Complies with drug therapyaspirin 81 mg oral tablet (20 sources)Platelet Aggregation Inhibitor, Nonsteroidal Anti-inflammatory Drug Start: 46-13-7033ovbqnab 81 mg cap Aspirin Active 81 MG PO Daily December 11, 2021 12:00am 12/11/2021 ActiveStart: 49-88-3409axbt 1 capsule by mouth once dailyAspirin 81 mg Capsule Active 81 MG PO Daily December 10, 2021 11:00pm Complies with drug therapyaspirin 81 MG chewable tablet 1 (one) time each day at the same time ActiveComment on above:Aspirin Active 81 MG PO Daily December 11, 2021 12:00ambetamethasone 0.5 mg/ml / clotrimazole 10 mg/ml topical cream (20 sources)Azole Antifungal, CorticosteroidStart: 00-98-8319Ujibpjeyooxy- Betamethasone 1-0.05 % cream Active 1 APPLIC TOPICAL Twice daily 15 14 1 September 20, 2024 11:00pm Complies with drug therapyClotrimazole-Betamethasone 1-0.05 % 1 application Externally three times a day Not-Taking/PRNcephalexin 500 mg oral capsule (20 sources)Cephalosporin AntibacterialStart: 04-21-2024 End: 93-12-5206xyna 1 capsule by mouth twice dailycephALEXin (KEFLEX) 500 mg capsule Take 1 capsule by mouth two times a day for 10 days. 20 capsule 0 04/21/2024 05/01/2024 ActiveStart: 04-21-2024 End: 54-57-8570hfdd 1 capsule by mouth three times dailyCephalexin 500 mg capsule Discontinued 500 MG PO Three times daily 42 14 0 April 21, 2024 12:00am May 22, 2024 8:58amStart: 07-23-2023 End: 24-16-2809dycr 1 capsule by mouth every twelve hourscephALEXin (KEFLEX) 500 mg capsule Take 1 capsule by mouth every 12 hours. 07/23/2023 04/21/2024 Dis continuedStart: 01-23-2022 End: 23-27-5858exuvKLTLau 500 mg cap(s) (KEFLEX)Start: 12-11-2021 End: 87-89-0872tslw 1 capsule by mouth every eight hoursCephalexin 500 mg Capsule Discontinued 500 MG PO Q8H 21 7 0 December 10, 2021 11:00pm December 17, 2021 4:10pmStart: 12-09-2021 End: 69-76-3724rhvo 1 capsule by mouth three times dailycephALEXin (KEFLEX) 500 mg capsule Take 1 capsule by mouth three times daily for 3 days. Start evening prior procedure 10 capsule 0 12/09/2021 12/12/2021 ActiveStart: 11-26-2021 End: 68-33-3703gqmo 1 capsule by mouth twice dailycephALEXin (KEFLEX) 500 mg capsule Take 1 capsule by mouth twice daily. 14 capsule 0 11/26/2021 12/09/2021 DiscontinuedStart: 11-12-2021 End: 48-61-2906mwlmNQBAet 500 mg cap(s) (KEFLEX)Start: 13-05-6793tzgp 1 capsule by mouth once dailyKeflex 500 mg Cap 500 mg = 1 cap(s), Oral, Daily, Take 1 capsule the day before the procedure and 1capsule after the procedure, # 2 cap(s), Refills(s) 0, Pharmacy: [facility]/pharmacy #[id number], 192, cm, 12/14/19 10:22:00 EDT, [...] 100 mg oral capsule (8 sources)Tetracycline-class DrugStart: 42-35-6873cfahtjawwjc hyclate (VIBRAMYCIN) 100 mg capsule 12/26/2021 Activeeconazole nitrate 10 mg/ml topical cream (19 sources)Azole Antifungalglucosamine 500 mg oral tablet (20 sources)Start: 16-93-4227ajxj 2 tablets by mouth once dailyGlucosamine Hcl 500 mg tablet Active 1000 MG PO Daily April 24, 2024 1:11pm administer with a meal Complies with drug therapyStart: 05-21-2023 End: 40-10-0764mpii 1 tablet by mouth once dailyGlucosamine Hcl 500 mg tablet Discontinued 500 MG PO Daily May 21, 2023 12:00am April 24, 2024 1:13pm administer with a mealStart: 99-80-8381Cqvnolcrnob HCl 1,500 mg tab Take 1,500 mg by mouth. 05/25/2019 ActiveComment on above:Take 1,500 mg by mouth. Glucosamine 1500 Complex - (19 sources)Glucosamine 1500 Complex - as directed Orally Activelidocaine hydrochloride 0.02 mg/mg topical gel (3 sources)Antiarrhythmic, Amide Local AnestheticStart: 01-23-2022 End: 31-53-9967xvspyaswx urojet 2 % 11 mL topical gel (XYLOCAINE, GLYDO)Start: 11-12-2021 End: 64-09-6332najfxdjhp urojet 2 % 11 mL topical gel (XYLOCAINE, GLYDO) lisinopril 10 mg oral tablet (20 sources)Angiotensin Converting Enzyme InhibitorStart: 21-01-8166dupo 2 tablets by mouth once dailyStart: 12-26-2024 End: 72-85-2913rluy 1 tablet by mouth once dailyLisinopril 10 mg tablet Discontinued 10 MG PO Daily 90 90 3 December 26, 2024 11:54am January 22, 2025 8:37amStart: 12-25-2024 End: 50-00-3196mwgl 2 tablets by mouth once dailyLisinopril 5 mg tablet Discontinued 10 MG PO Daily 180 90 December 25, 2024 4:36pm December 11:55amStart: 08-14-2024 End: 52-77-7933eqcp 1 tablet by mouth once dailyLisinopril 5 mg tablet Discontinued 5 MG PO Daily 90 90 August 14, 2024 9:55am December 25, 2024 4 :37pmStart: 05-03-2024 End: 73-86-4434tgof 1 tablet by mouth once dailyLisinopril 5 mg tablet Discontinued 5 MG PO Daily 90 90 June 13, 2024 3:18pm June 14, 2024 1:44pm Start: 03-14-2024 End: 18-93-9902ettp 1 tablet by mouth twice dailyLisinopril 10 mg tablet Discontinued 10 MG PO Twice daily March 14, 2024 12:00am April 24, 2024 1:13pmStart: 12-28-2023 End: 01-65-7461Igmaaywrds 20 mg tablet Discontinued 10 MG .ROUTE Twice daily 90 3 December 28, 2023 7:41am March 14, 2024 2:59pm 10 mg twice daily;Start: 68-31-3118Fdwzzeglal Active 10 MG .ROUTE Twice daily 90 December 28, 2023 8:41am 10 mg twice daily;Start: 09-05-2023 End: 13-35-2314Uehalbssif 20 mg tablet Discontinued 0 .ROUTE .COMPLEX 90 3 September 05, 2023 7:20am December 28, 2023 7:54am TAKE 1 TABLET DAILYStart: 05-21-2023 End: 33-95-1937qbgi 1 tablet by mouth once dailyLisinopril 20 mg tablet Discontinued 20 MG PO Daily 90 90 0 June 17, 2023 11:03am September 05, 2023 7:20amStart: 12-11-2021 End: 87-03-5817ynaq 10 mg by mouth once dailyLisinopril 20 mg tablet Discontinued 10 MG PO Daily December 10, 2021 11:00pm May 21, 2023 11:03am Start: 12-11-2021 End: 14-73-3512vtyh 10 mg by mouth once dailyLisinopril Discontinued 10 MG PO Daily December 11, 2021 12:00am May 21, 2023 12:03pmStart: 07-31-2009 End: 56-41-7821tjtm 2 tablets by mouth once dailyLisinopril 10 mg tablet Discontinued 20 MG PO Daily April 24, 2024 1:10pm April 24, 2024 2 :02pmStart: 57-09-4140hfet 1 mg by mouth once dailylisinopril 10 mg Tab mg tab(s), Oral, Daily, Refills(s) 0 Start Date: 05/25/19 Status: OrderedLisinopril 20 MG TAKE 1 TABLET DAILY ActiveComment on above:Take one(1) tablet daily. lovastatin 40 mg oral tablet (20 sources)HMG-CoA Reductase InhibitorStart: 75-35-5573Tpvahttrlz 40 mg tablet Active 0 .ROUTE .COMPLEX 90 3 June 04, 2024 4:09pm TAKE 1 TABLET EVERY EV ENING Complies with drug therapyStart: 39-63-5788anaqhvmfzb 40 mg tablet Lovastatin Active 40 MG PO Daily December 11, 2021 12:00am 05/25/2019 Active Start: 05-25-2019 End: 66-71-6983vvgv 1 tablet by mouth once dailyLovastatin 40 mg tablet Discontinued 40 MG PO Daily December 10, 2021 11:00pm June 17, 2023 11:04am Comment on above:Lovastatin Active 40 MG PO Daily December 11, 2021 12:00am MSM 1500 MG (19 sources)MSM 1500 MG as directed Orally ActiveMulti For Him - (4 sources)Multi For Him - as directed Orally ActiveMultivitamin (Daily Multi- Vitamin) tablet (20 sources)Start: 24-55-2769zfze 1 tablet by mouth once dailyMultivitamin (Daily Multi-Vitamin) tablet Active 1 TAB PO Daily May 21, 2023 12:00am Complies with drug therapyStart: 48-25-1099hlju 1 tablet by mouth once daily Start: 70-15-4154gjew 1 tablet by mouth once dailyMultivitamin (Daily Multi- Vitamin) tablet Active 1 TAB PO Daily May 21, 2023 1:00am Complies with drug therapyStart: 46-25-7496zfhm 1 tablet by mouth once dailyMultivitamin (Daily Multi-Vitamin) tablet Active 1 TAB PO Daily May 21, 2023 12:00amStart: 32-03-4596ojic 1 tablet by mouth once dailyMultivitamin (Daily Multi-Vitamin) tablet Active 1 TAB PO Daily May 21, 2023 1:00amMultivitamin preparation (5 sources)multivitamin (MULTIPLE VITAMINS ORAL) Take by mouth. Active nitrofurantoin, macrocrystals 50 mg oral capsule (1 source)Nitrofuran AntibacterialStart: 11-12-2021 End: 53-47-9788jekg 1 capsule by mouth twice dailynitrofurantoin macrocrystal [...] oral capsule (20 sources)alpha-Adrenergic BlockerStart: 04-21-2024 End: 64-44-7969ylmg 1 capsule by mouth twice dailytamsulosin (FLOMAX) 0.4 mg Take 1 capsule by mouth two times a day. 180 capsule 2 04/21/2024 01/16/2025 ActiveStart: 18-17-2685Bzgtjtaywk 0.4 mg capsule Active 0 .ROUTE .COMPLEX 180 3 October 12, 2023 7:41am TAKE 1 CAPSULE TWICE DAILY Complies with drug therapy Start: 12-17-2021 End: 30-12-4280crhe 1 capsule by mouth twice dailyTamsulosin 0.4 mg capsule Discontinued 0.4 MG PO Twice daily 180 90 0 June 17, 2023 11:04am 2023 8:54amStart: 11-14-2019 End: 80-54-1389yhfk 1 capsule by mouth once daily at bedtimeTamsulosin 0.4 mg capsule Discontinued 0.4 MG PO Daily at bedtime June 23, 2023 8:53am October 12, 2023 7:41amComment on above:Take 1 capsule by mouth once daily. Take one cap. dailyTurmeric extract (5 sources)TURMERIC ORAL Take by mouth. ActiveTurmeric Root Extract 500 mg tablet (12 sources)Start: 76-95-0459dmuj 1 tablet by mouth once dailyTurmeric Root Extract 500 mg tablet Active 750 MG PO Daily March 14, 2024 12:00am Complies with drug therapyStart: 74-88-4074thrv 1 tablet by mouth once daily Start: 92-82-6998uzau 1 tablet by mouth once dailyTurmeric Root Extract 500 mg tablet Active 750 MG PO Daily March 14, 2024 1:00am Complies withdrug therapyStart: 06-82-1431teox 1 tablet by mouth once dailyTurmeric Root Extract 500 mg tablet Active 750 MG PO Daily March 14, 2024 1:00amStart: 03-14-2024 take 1 tablet by mouth once dailyTurmeric Root Extract 500 mg tablet Active 750 MG PO Daily March 14, 2024 12:00amTurmeric Root-Yulisa Root Ext (7 sources)Start: 33-75-3974Xbwbttjg Root-Yulisa Root Ext Active TAB PO May 21, 2023 1:00amTurmeric-Yulisa 150-25 MG (4 sources)Turmeric-Yulisa 150-25 MG as directed Orally Activevit A/vit C/vit E/zinc/copper (PRESERVISION AREDS ORAL) (5 sources)vit A/vit C/vit E/zinc/copper (PRESERVISION AREDS ORAL) Take by mouth. ActiveVitamins A,C,Q-Vtup-Dgjnta (Preservision Areds) 4,296 mcg-226 mg-90 mg capsule (9 sources)Start: 65-48-4814zrcr 1 capsule by mouth twice dailyVitamins A,C,N-Aibn-Nkdgrr (Preservision Areds) 4,296 mcg-226 mg-90 mg capsule Active 1 CAP PO Twice daily December 27, 2023 11:00pmStart: 01-44-9405xxto 1 capsule by mouth twice dailyVitamins A,C,Z-Rqno-Pjidws (Preservision Areds) 4,296 mcg-226 mg-90 mg capsule [...] (20 sources)Dihydropyridine Calcium Channel BlockerStart: 08-04-2023 End: 15-72-1964xzhe 1 tablet by mouth once dailyAmlodipine 5 mg tablet Discontinued 5 MG PO Daily 90 90 3 August 04, 2023 10:01am December 28, 2023 7:40amStart: 05-31-2023 End: 43-56-7103zcwk 1 tablet by mouth once dailyAmlodipine 5 mg tablet Discontinued 0 .ROUTE .COMPLEX 90 May 31, 2023 4:07pm August 04, 2023 10 :01am TAKE 1 TABLET BY MOUTH DAILY FOR 30 DAYSStart: 05-31-2023 End: 90-97-0191heha 1 tablet by mouth once dailyAmlodipine 5 mg tablet Discontinued 5 MG PO Daily 30 30 0 May 30, 2023 11:00pm May 31, 2023 4:07pmStart: 73-69-8164wrWOZMZbfs (NORVASC) 2.5 mg tablet Amlodipine Active 5 MG PO Daily December 11, 2021 12:00am 12/11/2021 ActiveStart: 12-11-2021 amLODIPine (NORVASC) 2.5 mg tablet Amlodipine Active 5 MG PO Daily December 11, 2021 12:00am 0 12/11/2021 ActiveStart: 12-11-2021 End: 17-81-9158qwtb 2 tablets by mouth once dailyAmlodipine 2.5 mg tablet Discontinued 5 MG PO Daily December 10, 2021 11:00pm May 08, 2023 12:04pmStart: 12-11-2021 End: 69-08-8646laff 5 mg by mouth once dailyAmlodipine Discontinued 5 MG PO Daily December 11, 2021 12:00am May 08, 2023 1:04pmStart: 05-25-2019 End: 44-43-4436qhou 1 tablet by mouth once dailyAmlodipine 5 mg tablet Discontinued 5 MG PO Daily 30 30 0 May 08, 2023 12:02pm May 21, 2023 11:03amComment on above:Amlodipine Active 5 MG PO Daily December 11, 2021 12:00amamoxicillin 875 mg / clavulanate 125 mg oral tablet (20 sources)Penicillin-class AntibacterialStart: 05-15-2023 End: 63-56-1731wwgk 1 tablet by mouth twice dailyAmoxicillin-Pot Clavulanate 875-125 mg tablet Discontinued 1 TAB PO Twice daily 20 0 May 15, 2023 12:00am May 21, 2023 11:00amStart: 31-10-9719yfpi 1 tablet by mouth every twelve hoursAmoxicillin-Pot Clavulanate 875-125 MG 1 tablet Orally every 12 hrs Feb, Activeapixaban 5 mg oral tablet (20 sources)Factor Xa InhibitorStart: 03-14-2024 End: 83-47-8277lque 1 tablet by mouth twice dailyApixaban (Eliquis) 2.5 mg tablet Discontinued 2.5 MG PO Twice daily March 14, 2024 12:00am April 24, 2024 1:13pmStart: 02-01-2024 End: 98-55-1103oknm 1 tablet by mouth twice dailyApixaban 2.5 mg tablet Discontinued 2.5 MG PO Twice daily 60 30 5 February 01, 2024 2:06pm February 01, 2024 9:27pmStart: 02-01-2024 End: 16-60-7236dzok 2 tablets by mouth twice dailyApixaban (Eliquis) 2.5 mg tablet Discontinued 5 MG PO Twice daily April 24, 2024 1:12pm April 24, 2024 2:03pmStart: 01-31-2024 End: 39-19-7955jjsd 1 tablet by mouth twice dailyApixaban (Eliquis) 5 mg tablet Discontinued 5 MG PO Twice daily 180 90 April 24, 2024 12:00am April 26, 2024 9:45amazithromycin 250 mg oral tablet (11 sources)Macrolide AntimicrobialStart: 57-80-5026Bsshfbmjrqcy 250 MG as directed Orally daily for 5 days Sep, Not-Taking/PRNgabapentin 300 mg oral capsule (20 sources)Anti-epileptic AgentStart: 91-38-8927Wvyzafryum 300 mg capsule Active 0 .ROUTE .COMPLEX 270 April 03, 2024 8:40am TAKE 1 CAPSULE 3 TIMES A DAYStart: 63-92-3887Xrtbrgwxcu 300 mg capsule Active 0 .ROUTE .COMPLEX 270 April 03, 2024 7:40am TAKE 1 CAPSULE 3 TIMES A DAYStart: 01-09-2024 End: 20-39-7419Hxhdlekcxs 300 mg capsule Discontinued 0 .ROUTE .COMPLEX 270 April 03, 2024 7:40am September 8:35am TAKE 1 CAPSULE 3 TIMES A DAY Start: 05-25-2019 End: 98-16-7953kwup 1 capsule by mouth three times dailyGabapentin 300 mg capsule Discontinued 300 MG PO Three times daily 270 90 August 04, 2023 10:00am January 09, 2024 6:29pmStart: 07-31-2009 End: 76-85-1716jhoi 1 capsule by mouth once dailyGabapentin 300 mg capsule Discontinued 300 MG PO Daily December 10, 2021 11:00pm August 04, 2023 9:51am Gabapentin 300 MG 1 capsule bid and 2 q HS Orally tid ActiveComment on above: Take one(1) tablet two(2) times daily.glipiZIDE er 2.5 mg 24 hr extended release oral tablet (20 sources)SulfonylureaStart: 12-11-2021 End: 31-37-8872gxii 1 tablet by mouth once dailyGlipizide 2.5 mg tablet extended release 24hr Discontinued 2.5 MG PO Daily 90 90 3 August 04, 2023 10:00am May 15, 2024 12:19pmStart: 26-83-1172cpie 2.5 mg by mouth once dailyglipiZIDE 5 mg ORAL tablet Take 2.5 mg by mouth once daily. 0 01/09/2010 ActiveStart: 87-75-9956lmpa 1 mg by mouth once dailyglipiZIDE 5 mg Tab mg tab(s), Oral, Daily, Refills(s) 0 Start Date: 05/25/19 Status: Orderedtake 1 tablet by mouth every twenty-four hoursglipiZIDE XL 5 MG 1 tablet Orally Once a day Active Comment on above:Take one(1) tablet daily.Take 2.5 mg by mouth once daily. ammonium lactate 120 mg/ml topical cream (11 sources)Start: 18-51-3099Ushmudsi Lactate 12 % TOPICAL cream Use twice daily on feet 2 01/09/2010 ActiveComment on above:Use twice daily on feet methylsulfonylmethane 1000 mg oral capsule (20 sources)Start: 05-21-2023 End: 90-40-7100swnm 1 capsule by mouth twice dailyMethylsulfonylmethane (Msm) 1,000 mg capsule Discontinued 1000 MG PO Twice daily May 21, 2023 12:00am March 14, 2024 2:59pmStart: 05-21-2023 End: 02-02-9493ziti 1 capsule by mouth twice dailyMethylsulfonylmethane (Msm) 1,000 mg capsule Discontinued 1000 MG PO Twice daily May 21, 2023 1:00am March 14, 2024 3:59pm24 hr metoprolol succinate 25 mg extended release oral tablet (20 sources)beta-Adrenergic BlockerStart: 05-22-2024 End: 30-24-0466yhoe 1 tablet by mouth once dailyMetoprolol Succinate 25 mg tablet extended release 24 hr Discontinued 25 MG PO Daily 90 90 1 2024 8:57am October 23, 2024 2:15pmStart: 04-26-2024 End: 45-29-1993ioyx 2 tablets by mouth once dailyMetoprolol Succinate 25 mg tablet extended release 24 hr Discontinued 12.5 MG PO Daily 45 90 1 April 26, 2024 12:00am May 22, 2024 9:00amStart: 04-24-2024 End: 92-84-4999siug 1 tablet by mouth once dailyMetoprolol Succinate 25 mg tablet extended release 24 hr Discontinued 25 MG PO Daily 90 90 April 24, 2024 12:00am April 26, 2024 3:42pmStart: 59-14-8634lvem 1 tablet by mouth every hourmetoprolol succinate ER (TOPROL XL) 25 mg 24 hr tablet Take 1 tablet by mouth every afternoon. 01/31/2024 Activenitrofurantoin, macrocrystals 25 mg / nitrofurantoin, monohydrate 75 mg oral capsule (12 sources)Nitrofuran AntibacterialStart: 03-14-2024 End: 26-82-6686vtgp 1 capsule by mouth twice daily at mealtimeNitrofurantoin Monohyd/M-Cryst (Macrobid) 100 mg capsule Discontinued 100 MG PO Twice daily March 14, 2024 12:00am April 24, 2024 1:12pm must administer with a meal/foodsimvastatin 40 mg oral tablet (20 sources)HMG-CoA Reductase InhibitorStart: 07-31-2009 End: 53-74-4842bxbgnhwxury(ZOCOR 40 MG TAB) Take one(1) tablet daily at bedtime. 0 0 07/31/2009 12/16/2021 Discontinued (Discontinued by Patient)Comment on above:Take one(1) tablet daily at bedtime.trimethoprim 100 mg oral tablet (20 sources)Dihydrofolate Reductase Inhibitor AntibacterialStart: 12-15-2021 End: 45-27-8399deox 1 tablet by mouth twice dailyTrimethoprim 100 mg tablet Discontinued 100 MG PO Twice daily December 16, 2021 11:00pm May 21, 2023 11:03amComment on above:Take 1 tablet by mouth twice daily for 5 days.Turmeric Root-Yulisa Root Ext 150-25 mg tablet,chewable (13 sources)Start: 05-21-2023 End: 93-79-3217Yczqgpkw Root-Yulisa Root Ext 150-25 mg tablet,chewable Discontinued TAB PO May 21, 2023 1:00am March 14, 2024 4:00pmStart: 05-21-2023 End: 25-87-3974Gnijkned Root-Yulisa Root Ext 150-25 mg tablet,chewable Discontinued TAB PO May 21, 2023 12:00amDecember 2023 3:00pmStart: 70-53-8039Gbadedpn Root-Yulisa Root Ext 150-25 mg tablet,chewable Active [...] source)Disorder of refraction; 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]26-52-0326CxaaliqwTreevoc dysrhythmias (20 sources)Ventricular premature complex; Translations: [Ventricular premature depolarization]Onset: [id number] on above: Echocardiogram: LVEF 65%, normal RV size/function, LISA, mild , RVSP 36 - 104CHADs VASc = 4 (age > 75, HTN, Diabetes)Cardiac dysrhythmias (4 sources)Palpitations; Translations: [Palpitations]Onset: EpisodicChronic kidney disease (20 sources)Chronic kidney disease stage 3; Translations: [Chronic kidney disease, stage 3 unspecified]Onset: 401006-74-1469GmucrgpIuteabx ulcer of skin (20 sources)Ulcer of foot; Translations: [Non-pressure chronic ulcer of other part of unspecified foot with unspecified severity]Onset: ChronicComplication of device; implant or graft (20 sources)Disorder of urethral catheter; Translations: [Breakdown (mechanical) of indwelling urethral catheter, initial encounter]96-56-9083JoqcqvkrRjnqoyz on above:Problem List clean-up per request of Phys. EHR CmteDeficiency and other anemia (1 source)Anemia due to chronic blood loss; Translations: [Iron deficiency anemia secondary to blood loss (chronic)]ChronicDeficiency and other anemia (15 sources)Anemia; Translations: [Anemia, unspecified] Resolved: 966423-41-9500DyjfbqdaIdohtvfe mellitus with complications (20 sources)Type 2 diabetes mellitus with other diabetic neurological complication; Translations: [Diabetes with neurological manifestations, type II or unspecified type, not stated as uncontrolled]Onset: 03-15-1961 Resolved: 724601-23-8561HexcsaqOlhzqhhf mellitus without complication (2 sources)Type 2 diabetes mellitus without complication; Translations: [Diabetes mellitus without mention of complication, type II or unspecified type, not stated as uncontrolled]14-59-6704BwxpyagWzwaouyno of lipid metabolism (20 sources)Pure hypercholesterolemia; Translations: [Familial hypercholesterolemia]Onset: 72-46-5900BkouyxlTnilamnfa hypertension (20 sources)Hypertensive disorder; Translations: [Essential (primary) hypertension]ChronicFluid and electrolyte disorders (1 source)Hypo-osmolality and hyponatremia; Translations: [Hyponatremia]Onset: 23-07-2159HhnbjucyJaeujrhhgdxvd symptoms and ill-defined conditions (2 sources)Post-micturition incontinence ; Translations: [Urinary incontinence] 18-20-7006DtgsiqzTftrcjodwjnhr symptoms and ill-defined conditions (20 sources)Retention of urine, unspecified; Translations: [Increased frequency of urination]Onset: 11-07-2021 Resolved: 48-17-8714YoocvegnMwxbcqq on above:Problem List clean-up per request of Phys. EHR CmteHeart valve disorders (20 sources)Nonrheumatic aortic (valve) stenosis; Translations: [Mild aortic valve stenosis]83-51-5237AuwtxtiXgjkfhr on above:Echocardiogram: LVEF 65%, normal RV size/function, LISA, mild , RVSP 12/2023Echocardiogram: LVEF 65%, normal RV size/function, LISA, mild , RVSP arotid US: <50% B/L 10/2021Heart valve disorders (8 sources)Heart murmur; Translations: [Cardiac murmur, unspecified]12-28-2023 EpisodicHyperplasia of prostate (20 sources)Benign prostatic hypertrophy with outflow obstruction; Translations: [Benign prostatic hyperplasia with lower urinary tract symptoms]Onset: 10-52-7508ZzcjcjrVsfserqywnxiq and screening for infectious disease (1 source)Vaccination given; Translations: [Encounter for immunization]Episodic Infective arthritis and osteomyelitis (except that caused by tuberculosis or sexually transmitted disease) (20 sources)Osteomyelitis of right foot; Translations: [Osteomyelitis, unspecified]Onset: 469549-22-2440OhblwiqSkbxryhutyya; infection of eye (except that caused by tuberculosis or sexually transmitteddisease) (11 sources)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; Translations: [Unspecified blepharitis right eye, upper and lower eyelids]Onset: 890015-46-9775VobfmunpAfgvabyznkwe conditions of male genital organs (11 sources)Balanitis; Translations: [Balanitis]Onset: ChronicInflammatory conditions of male genital organs (5 sources)Chronic epididymitis; Translations: [Epididymitis] Resolved: 27-84-6071PhvyxshjScjqqsq and fatigue (2 sources)Malaise and fatigue; Translations: [Other malaise and fatigue]Onset: 893175-51-1750ZqzxcfcgRypwmsqnv or stenosis of precerebral arteries (3 sources)Left carotid artery stenosis; Translations: [Occlusion and stenosis of left carotid artery]ChronicOsteoarthritis (20 sources)Osteoarthritis of right knee joint; Translations: [Unilateral primary osteoarthritis, right knee]ChronicOther aftercare (4 sources)H/O: high risk medication; Translations: [Other penitentiary (current) drug therapy]EpisodicOther aftercare (1 source)Long-term current use of drug therapy; Translations: [Other penitentiary (current) drug therapy]EpisodicOther circulatory disease (1 source)Elevated blood-pressure reading, without diagnosis of hypertension; Translations: [Elevated blood pressure reading without diagnosis of hypertension]Onset: 91-73-1743WiotzgjzAgycs circulatory disease (18 sources)Carotid bruit; Translations: [Other specified symptoms and signs involving the circulatory and respiratory systems]EpisodicOther circulatory disease (6 sources)Other specified symptoms and signs involving the circulatory and respiratory systems; Translations:[OTH SPEC SX SIGNS INVLV CIRC RS]Onset: 52-02-5956KhmanyjaFylpb circulatory disease (1 source)Cardiovascular symptoms; Translations: [Other [...] venous insufficiency; Translations: [Venous insufficiency (chronic) (peripheral)]Onset: 59-24-5185DmvtkvyrSchzv diseases of veins and lymphatics (20 sources)Venous insufficiency of leg; Translations: [Venous insufficiency (chronic) (peripheral)]89-11-4558KbprchftMfyvq diseases of veins and lymphatics (20 sources)Stasis dermatitis; Translations: [Venous insufficiency (chronic) (peripheral)]53-78-4811IygdmimuVbeyc diseases of veins and lymphatics (20 sources)Venous insufficiency (chronic) (peripheral); Translations: [Venous (peripheral) insufficiency, unspecified]02-75-3971TuogbhreTbffa eye disorders (11 sources)Optic atrophy; 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]Onset: 897413-09-8998EgvrccqIuslg eye disorders (11 sources)Dry eyes; Translations: [Dry eye syndrome of bilateral lacrimal glands]Onset: 805138-47-0992VvobjsgdPujbp injuries and conditions due to external causes (2 sources)History of fall; Translations: [Personal history of fall]Onset: 30-10-6877ZfuwoufrGanew male genital disorders (1 source)Personal history of other diseases of male genital organs; Translations: [History of BPH]Onset: 93-09-7778PdjyhozgJtznj male genital disorders (1 source)Disorder of reproductive system; Translations: [Hydrocele, unspecified]EpisodicOther male genital disorders (1 source)Pain of left testicle; Translations: [Left testicular pain]Episodic Other non-traumatic joint disorders (1 source)Lower limb joint arthritis; Translations: [Osteoarthrosis, unspecified whether generalized or localized, lower leg]Onset: 41-97-8701BgqttvyPsekd non- traumatic joint disorders (1 source)Pain in left kneeEpisodicOther non-traumatic joint disorders (1 source)Pain in left ankle and joints of left foot; Translations: [PAIN IN LEFT ANKLE]Onset: 61-89-3550GgttwnqeYfkec non-traumatic joint disorders (1 source)Shoulder joint pain; Translations: [Pain in right shoulder]Episodic Other nutritional; endocrine; and metabolic disorders (1 source)Obesity; Translations: [Obesity, unspecified]ChronicOther nutritional; endocrine; and metabolic disorders (10 sources)Overweight; Translations: [Overweight]EpisodicOther nutritional; endocrine; and metabolic disorders (20 sources)Overweight; Translations: [Overweight]Onset: 359947-26-2764 EpisodicOther skin disorders (5 sources)Actinic keratosis; Translations: [Actinic keratosis]EpisodicOther skin disorders (1 source)Callosity; Translations: [Corns and callosities]EpisodicOther skin disorders (2 sources)Corns and callositiesEpisodicRetinal detachments; defects; vascular occlusion; and retinopathy (11 sources)Nonexudative age-related macular degeneration; Translations: [Nonexudative age-related macular degeneration, bilateral, intermediate dry stage]Onset: 201158-19-5125ArojtmrTljhfnr detachments; defects; vascular occlusion; and retinopathy (1 source)Serous retinal detachment; Translations: [Serous retinal detachment, unspecified eye]EpisodicSkin and subcutaneous tissue infections (20 sources)Cellulitis of toe of left foot; Translations: [Cellulitis of left toe] Resolved: 34-09-1861GipehervWrkhfsidxed; intervertebral disc disorders; other back problems (6 sources)Lumbosacral spondylosis without myelopathy; Translations: [Spondylosis without myelopathy or radiculopathy, lumbar region]ChronicSprains and strains (2 sources)Low back strain; Translations: [Strain of muscle, fascia and tendon of lower back, initial encounter] Resolved: 33-65-5792DrjcqbfvHfhbqhi disorders (20 sources)Subclinical hypothyroidism; Translations: [Other specified hypothyroidism]08-54-6010DmbnwaaNwibinoqqmmx (3 sources)CONTACT W/AND (SUSP) EXPOS COVID-19; Translations: [CONTACT W/AND (SUSP) EXPOS COVID-19]Onset: 98-83-0800Edvdrsmbmdqy (1 source)Long-term current use of drug therapy; Translations: [Long-term (current) use of other medications]Onset: 29-70-9496Xlpvjrsxzqpp (1 source)Drug therapy -68-9562 Past or Other Problems Problem ClassificationProblemDateDocumented DateEpisodic/ChronicAcute posthemorrhagic anemia (1 source)Acute posthemorrhagic anemia; Translations: [Acute posthemorrhagic anemia] Resolved: 21-08-7884LydffbnnNmsaaccqk infection; unspecified site (1 source)Bacterial infectious disease; Translations: [Bacterial infection, unspecified, in conditions classified elsewhere and of unspecified site]Onset: 88-75-6434PnipbbobTfeackq obstructive pulmonary disease and bronchiectasis (1 source)Bronchitis; Translations: [Bronchitis, not specified as acute or chronic]Onset: 42-55-6125PabtobflCrtiincbmvi chest pain (1 source)Chest pain; Translations: [Chest pain, unspecified] Resolved: 31-29-5996AufksdodSixbm aftercare (1 source)Other penitentiary (current) drug therapy; Translations: [OTH [employer] CURRENT DRUG THERAPY]Onset: 81-95-9322YobagijaTohqt connective tissue disease (1 source)Disorder of soft tissue; Translations: [Other specified soft tissue disorders] Resolved: 45-16-1469LmaotohfRybpy lower respiratory disease (1 source)Dyspnea; Translations: [Dyspnea, unspecified]Onset: 46-61-1071Yjikdcfn Other male genital disorders (4 sources)Left testicular pain; Translations: [LEFT TESTICULAR PAIN]Onset: 29-08-8673IkxnhtqeQtqcn nutritional; endocrine; and metabolic disorders (2 sources)Body mass index 25-29 - overweight; Translations: [Body mass index (BMI) 28.0-28.9, adult]Onset: 45-41-3579EmkovjgqHneed skin disorders (1 source)Other seborrheic keratosis; Translations: [Seborrheic keratosis]Onset: 86-15-0050DirkkzanJqbzc skin disorders (1 source)Atrophoderma; Translations: [Unspecified hypertrophic and atrophic condition of skin]Onset: 13-81-6684GcnyuxinBmrmf upper respiratory infections (1 source)Acute pharyngitis; Translations: [Acute pharyngitis due to other specified organisms]Onset: 59-06-0050YxjzwvyfLikfkoxi codes; unclassified (18 sources)Postoperative state; Translations: [Other specified postprocedural states]Onset: 293684-02-3851KvplsejgFvaxbblg codes; unclassified (1 source)Requires influenza virus vaccination; Translations: [Need for prophylactic vaccination and inoculation, Influenza]Onset: 12-27-5547Dljrevnk Residual codes; unclassified (1 source)Edema; Translations: [Edema]Onset: 68-13-1028JhrxpvdpJeffygqab and history of mental health and substance abuse codes (1 source)History of tobacco use; Translations: [Personal history of tobacco use, presenting hazards to health]Onset: 08-77-4261WekkdsqiLtrmurgnblf injury; contusion (1 source)Blister of foot with infection; Translations: [Foot and toe(s), blister, infected]Onset: 35-86-9625LesiukdbVbnunltpusgj (1 source)CONTACT W/AND (SUSP) EXPOS COVID-19; Translations: [CONTACT W/AND (SUSP) EXPOS COVID-19]Onset: 94-82-3394Fnfovxp tract infections (7 sources)Acute cystitis with hematuria; Translations: [Urinary tract infectious disease]Onset: 49-34-8067Qlcombhu Results Test NameValueInterpretationReference RangeFacilityOphthalmic OCT panelon 67-60-2066OIZKCenterpoint Medical Center Eye Images reviewed and comparison made to baseline, Images reviewed. To assess optic nerve function and for use in future follow-up. Reliability: good and adequate. Left Eye Images reviewed and comparison made to baseline, Images reviewed. To assess optic nerve function and for use in future follow-up. Reliability: good and adequate. Notes Nerve fiber layer (NFL) thinning left eye (OS). Stable.[facility] CenterRadiology Study observation (narrative)[facility] HospitalOV 33-84-2772NFEKZzwbbl Visit (UROLLN) NORBERTO WASHINGTON ([id number]) 1940 M Date Time Provider Department 10/24/24 3:00 PM LETICIA MILIAN During your visit today, we recorded the following information about you: Pulse Blood pressure Weight 62/minute 114/49 99.8 kg Leticia Milian, BILLING CUSTOMER SERVICE REPRESENTATIVE.TELEGRAPH MESSENGER 10/24/2024 3:38 PM Signed Norberto Washington [address] [facility] [address] HISTORY OF PRESENT ILLNESS: Seen 04/21/24 for [...] with burning note at head of foreskin KVJ=262 ML Location: BPH w obs/luts, UTI Pain Character: none Severity Scale: see AUA score, see lab Duration: BPH w obs/luts, UTI [facility] SYMPTOMS SCORE. 1. INCOMPLETE EMPTYING [...] CHEST: Bilateral symetrical, resp (more content not included)...NormalSelect Medical Specialty Hospital - Cleveland-FairhillBasophils Auto (Bld) [#/Vol]Ordered By: Campbell Saavedra on 49-97-2208Kifulwrlz (Bld) [#/Vol]0.0 10 3/uL0.0-0.1FSelect Medical Cleveland Clinic Rehabilitation Hospital, AvonBasophils/100 WBC Auto (Bld)Ordered By: Campbell Saavedra on 09-22-2024 Basophils/100 WBC (Bld)0.7 %0.2-2.0[facility] Eosinophils/100 WBC Auto (Bld)Ordered By: Campbell Saavedra on 09-22-2024 Eosinophils/100 WBC (Bld)2.6 %0.9-7.0[facility] Erythrocyte distribution width Auto (RBC) [Ratio]Ordered By: Campbell Saavedra on 42-54-7582Xtyyqawbwlx distribution width (RBC) [Ratio]14.6 %11.0-15.0[facility]S Medical CenterHematocrit Auto (Bld) [Volume fraction]Ordered By: Campbell Saavedra on 90-89-2284Yfdabvhszw (Bld) [Volume fraction]36.0 %Low42.0-54.[address] [facility]S Medical CenterHemoglobin [Mass/volume] in BloodOrdered By: Campbell Saavedra on 88-68-8768Eogdeobvhv (Bld) [Mass/Vol]11.9 g/dLLow14.0-18.[address] [facility]S Medical CenterLaboratory - Chemistry and Chemistry - challengeOrdered By: Campbell Saavedra on 75-43-6855Taee T4 [Mass/Vol]0.89 ng/dL 0.76-1.46[facility] Medical CenterTSH Qn4.474 m[IU]/LHigh0.358-3.[address] [facility] Medical CenterBilirubin Ql (U)NegativeNEGATIVEMercy Health St. Rita'S Medical CenterGlucose (U) [Mass/Vol]NegativeNEGATIVEMercy Health St. Rita'S Medical CenterKetones Ql (U)NegativeNEGAshtabula County Medical CenterpH (U)5.5 [pH]5.0-9.0[facility] Medical Centerpecific gravity (U) [Rel density]1.0201.005-1.025[facility]'S Medical CenterUrobilinogen Qn (U)0.2 {Americo'U}/dL0.2-1.0[facility] Medical CenterLaboratory - Hematology and Cell countsOrdered By: Campbell Saavedra on 79-96-2988Uklmzefk granulocytes/100 WBC (Bld)0.5 %0.0-0.5FSelect Medical Cleveland Clinic Rehabilitation Hospital, AvonLaboratory - Specimen informationOrdered By: Campbell Saavedra on 65-33-0796Voynaymzit (U)CLEARCLEAR [facility] Medical CenterColor (U)LT. YELLOWYELLOWMercy Health St. Rita'S Medical CenterLaboratory - UrinalysisOrdered By: Campbell Saavedra on 09-22-2024 Leukocyte esterase Test strip Ql (U)TRACEAbnormalNEGATIVEMercy Health St. Rita'S Medical CenterNitrite Ql (U)NegativeNEGATIVEMercy Health St. [facility] Protein Ql (U)NegativeNEG/TRACEMercy Health St. Rita'S Medical CenterLeukocytes [#/volume] corrected for nucleated erythrocytes in Blood by Automated coun Ordered By: Campbell Saavedra on 75-85-7278PFW corrected for nucl RBC Auto (Bld) [#/Vol]6.1 10 3/uL4.0-11.0[facility]S Medical CenterLymphocytes Auto (Bld) [#/Vol]Ordered By: Campbell Saavedra on 07-29-7968Glzhakwtwqy (Bld) [#/Vol]1.5 10 3/uL1.2-3.8[facility]S Medical CenterLymphocytes/100 WBC Auto (Bld) Ordered By: Campbell Saavedra on 22-68-4377Kfqctrzzgcv/100 WBC (Bld)24.5 %20.5-60.0 [facility] Auto (RBC) [Entitic mass]Ordered By: Campbell Saavedra on 70-35-5134OOU (RBC) [Entitic mass]28.7 pg25.9-34.0[facility]S Medical CenterMCHC Auto (RBC) [Mass/Vol]Ordered By: Campbell Saavedra on 08-03-4893IVZV (RBC) [Mass/Vol]33.1 g/dL29.9-35.2FSelect Medical Cleveland Clinic Rehabilitation Hospital, AvonMCV Auto (RBC) [Entitic vol]Ordered By: Campbell Saavedra on 78-33-8083UJX (RBC) [Entitic vol]87.0 fL80.0-94.0[facility] Medical CenterMonocytes Auto (Bld) [#/Vol]Ordered By: Campbell Saavedra on 61-72-0245Jvpihedsr (Bld) [#/Vol] 0.8 10 3/uL0.3-0.8[facility] Medical CenterMonocytes/100 WBC Auto (Bld) Ordered By: Campbell Saavedra on 39-66-2069Iaxlywkyq/100 WBC (Bld)13.7 %High1.7-12.[address] [facility]'S Medical CenterNeutrophils Auto (Bld) [#/Vol]Ordered By: Campbell Saavedra on 94-79-9736Wycdftukmur (Bld) [#/Vol]3.5 10 3/uL1.4-6.5FSelect Medical Cleveland Clinic Rehabilitation Hospital, AvonNeutrophils/100 WBC Auto (Bld)Ordered By: Campbell Saavedra on 87-68-3363Fnkqgezwyql/100 WBC (Bld)58.0 %43.0-75.0[facility] Medical CenterNo Panel InformationOrdered By: Campbell Saavedra on 79-22-0606Rkubbyayqci # (Auto)0.2 10 3/uL0.0-0.7FSelect Medical Cleveland Clinic Rehabilitation Hospital, AvonImmature Granulocyte # (Auto)0.03 10 3/uL0.00-0.03[facility]'S Medical CenterUrine Occult Blood NegativeNEGATIVEMercy Health St. Rita'S Medical CenterPlatelet mean volume Auto (Bld) [Entitic vol]Ordered By: Campbell Saavedra on 13-66-1586Vvdgrvyd mean volume (Bld) [Entitic vol]9.7 fL9.5-13.5FSelect Medical Cleveland Clinic Rehabilitation Hospital, AvonPlatelets Auto (Bld) [#/Vol]Ordered By: Campbell Saavedra on 53-35-8856Tlpoatqjd (Bld) [#/Vol]232 10 3/uL 150-450[facility]'S Medical CenterRBC Auto (Bld) [#/Vol]Ordered By: Campbell Saavedra on 04-02-0425SBG (Bld) [#/Vol]4.14 10 6/uLLow4.70-6.10[facility] Medical Centererum or plasma methylmalonate measurement (moles/volume) Ordered By: Campbell Saavedra on 11-39-3037Jkjenhnynvavxh [Moles/Vol]162 nmol/L0-[address] Rita'S Medical CenterComment on above:This test was developed and its performance characteristicsdetermined by [facility]. It has not been cleared orapproved by the Food and Drug Administration.Performed at: [address] [id number] Director: Nile Jensen MD, Phone: [phone] Cultureon 56-82-6240Wbzsdrcu identified Cx Nom (U)No Growth 2 Days PERFORMED BY: [place] [address] PATHOLOGIST SCALE ASSEMBLY SET UP WORKER YANA ROLDAN M.D.NormalThe [facility] Hospital Physician GroupComment on above: Performed By: #### CUU #### [place] [address] USAUrine cultureOrdered By: Campbell Saavedra on 09-22-2024 Bacteria identified Cx Nom (U)No Growth [address] [facility] Medical Center Glucose mean value [Mass/volume] in Blood Estimated from glycated hemoglobinon 94-30-2746Mclduci glucose Estimated from glycated hemoglobin (Bld) [Mass/Vol] Glucose mean value [Mass/volume] in Blood Estimated from glycated hemoglobin [facility] Medical CenterAverage glucose Estimated from glycated hemoglobin (Bld) [Mass/Vol]117 mg/dLMercy Health St. Rita'S Medical CenterHemoglobin A1c percentageon 89-10-5197VoY7n (Bld) [Mass fraction]Hemoglobin A1c percentage 4.5-6.2FSelect Medical Cleveland Clinic Rehabilitation Hospital, AvonComment on above:ADA RECOMMENDED LIMIT 4.0 - 6.0ADA THERAPEUTIC TARGET < 7.0ACTION SUGGESTED> 7.0HbA1c (Bld) [Mass fraction]5.7 %4.5-6.2FSelect Medical Cleveland Clinic Rehabilitation Hospital, AvonComment on above:ADA RECOMMENDED LIMIT 4.0 - 6.0ADA THERAPEUTIC TARGET < 7.0ACTION SUGGESTED> 7.0 Laboratory - Chemistry and Chemistry - challengeon 90-31-2526Tswl T4 [Mass/Vol] 0.79 ng/dL0.76-1.46[facility]'S Medical CenterTSH Qn3.846 m[IU]/LHigh 0.358-3.740[facility] Rita'S Medical CenterBacteria Ur Culton 05-03-2024 Bacteria identified Cx Nom (U)CULTURE, URINE: No growth (<1,000 CFU/ml)NormalSelect Medical Specialty Hospital - Cleveland-FairhillComment on above: Performed By: #### 630-4 #### [facility] CLIA [id number] [address] [place] [address] [place] AMERICALaboratory - Chemistry and Chemistry - challengeon 13-56-1462Mxinosscw Ql (U)NegativeNegMansfield HospitalGlucose (U) [Mass/Vol]NegativeNegativeMercy Health St. Rita'S Medical CenterKetones Ql (U)NegativeNegMansfield HospitalpH (U)6.0 [pH]<8.5FDetwiler Memorial Hospitalpecific gravity (U) [Rel density]1.0131.005-1.030[facility]S Medical CenterLaboratory - Specimen informationon 34-70-0654Mmgbgfwasw (U)ClearClearFSelect Medical Cleveland Clinic Rehabilitation Hospital, AvonColor (U)YellowYellowMercy Health St. Rita'S Medical CenterLaboratory - Urinalysison 11-82-8162Lxnhqlgg LM.HPF (Urine sed) [#/Area]NegativeNegative [facility]S Medical CenterHyaline casts LM Ql (Urine sed)0 /LPF0 /LPF [facility] Medical CenterLeukocyte esterase Test strip Ql (U)Negative NegativeMercy Health St. Rita'S Medical CenterNitrite Ql (U)NegativeNegativeMercy Health St. Rita'S Medical CenterProtein Ql (U)NegativeNegativeMercy Health St. Rita'S Medical CenterNo Panel Informationon 63-20-5962Efdvl Occult BloodNegativeNegative [facility]'S Medical CenterUrine RBC0-2 /HPF0-2 /HPFMercy Health St. Rita'S Medical CenterUrine Squamous Epithelial CellsNone Seen [HPF][facility]'S Medical CenterUrine Urobilinogen0.2 EU/dL0.2-1.0 EU/dLMercy Health St. Rita'S Medical CenterUrine WBC0-5 /HPF0-5 /HPFMercy Health St. Rita'S Medical CenterUrinalysis complete panel (U)on 12-46-8433Innvywxj LM.HPF (Urine sed) [#/Area]Negative NormalNegativeWyandot Memorial Hospital on above:Order Comment: Specimen Type: URINE SPECIMEN [facility] Address: [address] [place], [place] [address]Performed By: #### [id number] #### [facility] CLIA [id number] [address] [place] [address] [place] AMERICABilirubin Ql (U)Negative NormalNegativeWyandot Memorial Hospital on above:Order Comment: Specimen Type: URINE SPECIMEN [facility] Address: [address] [place], [place] [address]Performed By: #### 59873-7 #### [facility] CLIA [id number] [address] [place] [address] [place] AMERICAClarity (Unsp spec)Clear NormalClearCPremier Health Miami [facility] Hospital South on above:Order Comment: Specimen Type: URINE SPECIMEN [facility] Address: [address] [place], [place] [address]Performed By: #### 02983-3 #### [facility] CLIA [id number] [address] [place] [address] [place] AMERICAColor (U)YellowNormalYellow [facility] on above:Order Comment: Specimen Type: URINE SPECIMEN [facility] Address: [address] [place], [place] [address]Performed By: #### 94351-2 #### [facility] CLIA [id number] [address] [place] [address] [place] AMERICAEpithelial cells LM.HPF (Urine sed) [#/Area]None SeenNormalCPremier Health [facility] Hospital [facility] on above: Order Comment: Specimen Type: URINE SPECIMEN [facility] Address: [address] [place], [place] [address]Performed By: #### 30544-5 #### [facility] CLIA [id number] [address] [place] [address] [place] AMERICAGlucose Test strip (U) [Mass/Vol]NegativeNormalNegativeWyandot Memorial Hospital on above:Order Comment: Specimen Type: URINE SPECIMEN [facility] Address: [address] [place], [place] [address]Performed By: #### 95218-1 #### [facility] CLIA [id number] [address] [place] [address] [place] AMERICAHemoglobin Ql (U)Negative NormalNegativeWyandot Memorial Hospital on above:Order Comment: Specimen Type: URINE SPECIMEN [facility] Address: [address] [place], [place] [address]Performed By: #### 35511-1 #### [facility] CLIA [id number] [address] [place] [address] [place] AMERICAHyaline casts (Urine sed) [#/Area]0 /[LPF]Normal0 /LPFCPremier Health [facility] on above:Order Comment: Specimen Type: URINE SPECIMEN [facility] Address: [address] [place], [place] [address]Performed By: #### 98111-7 #### [facility] CLIA [id number] [address] [place] [address] [place] AMERICAKetones Ql (U)NegativeNormal NegativeWyandot Memorial Hospital on above:Order Comment: Specimen Type: URINE SPECIMEN [facility] Address: [address] [place], [place] [address]Performed By: #### 14807-8 #### [facility] CLIA [id number] [address] [place] [address] [place] AMERICALeukocyte esterase Test strip Ql (U)NegativeNormalNegativeWyandot Memorial Hospital on above: Order Comment: Specimen Type: URINE SPECIMEN [facility] Address: [address] [place], [place] [address]Performed By: #### 53153-5 #### [facility] CLIA [id number] [address] [place] [address] [place] AMERICANitrite Ql (U)NegativeNormal NegativeWyandot Memorial Hospital on above:Order Comment: Specimen Type: URINE SPECIMEN [facility] Address: [address] [place], [place] [address]Performed By: #### 82959-5 #### [facility] CLIA [id number] [address] [place] [address] [place] AMERICApH (U)6.0 [pH]Normal<8.5 [facility] on above:Order Comment: Specimen Type: URINE SPECIMEN [facility] Address: [address] [place], [place] [address]Performed By: #### 95204-1 #### [facility] CLIA [id number] [address] [place] [address] [place] AMERICAProtein (U) [Mass/Vol] NegativeNormalNegativeWyandot Memorial Hospital on above:Order Comment: Specimen Type: URINE SPECIMEN [facility] Address: [address] [place], [place] [address]Performed By: #### 10297-6 #### [facility] CLIA [id number] [address] [place] [address] [place] AMERICARBC LM.HPF (Urine sed) [#/Area]0-2 /HPFNormal0-2 /HPFWyandot Memorial Hospital on above:Order Comment: Specimen Type: URINE SPECIMEN [facility] Address: [address] [place], [place] [address]Performed By: #### 99475-2 #### [facility] [place] [id number] [address] [place] [address] [place] AMERICASpecific gravity (U) [Rel density]1.802Ncmgxv3.005-1.030[facility] on above:Order Comment: Specimen Type: URINE SPECIMEN [facility] Address: [address] [place], [place] [address]Performed By: #### 50672-9 #### [facility] [place] [id number] [address] [place] [address] STATES OF UC HEALTHUrobilinogen Ql (U)0.2 EU/dL Normal0.2-1.0 EU/dLWyandot Memorial Hospital on above:Order Comment: Specimen Type: URINE SPECIMEN [facility] Address: [address] [place], [place] [address]Performed By: #### [id number] #### [facility] [place] [id number] [address] [place] [address] [place] OF AMERICAWBC LM.HPF (Urine sed) [#/Area]0-5 /HPFNormal0-5 /HPFWyandot Memorial Hospital on above:Order Comment: Specimen Type: URINE SPECIMEN [facility] Address: [address] [place], [place] [address]Performed By: #### [id number] #### [facility] [place] [id number] [address] [place] [address] [place] UC HEALTHBacteria Ur Culton 51-91-0822Hrdeedfw identified Cx Nom (U)ORGANISM ID: 1 >=100,000 [...] Susceptible <=32 , Intermediate >32 , Resistant >64AbnormalCBarberton Citizens HospitalComment on above:Performed By: #### 630-4 #### [facility] CLIA [id number] [address] STATES OF UC HEALTHCNOVon 27-98-3530ZVVAUdscwp Visit (UROLLN) NORBERTO WASHINGTON ([id number]) 1940 M Date Time Provider Department 04/21/24 4:30 PM LETICIA MILIAN UROLLN During your visit today, we recorded the following information about you: Pulse Blood pressure Weight 76/minute 161/69 97.5 kg Leticia Milian, BILLING CUSTOMER SERVICE REPRESENTATIVE.TELEGRAPH MESSENGER 04/21/2024 4:58 PM Signed Norberto Washington [address] [facility] [id number] HISTORY OF PRESENT ILLNESS: Seen 02/08/24 for BPH w obs/luts, UTI, incomplete emptying Denies gross hematuria Denies burning with urination Pt stated that is having issue with constipation last BM a couple days ago ROSAMARIA 11/10/21 - 10 gm, rubbery, no nodules AUA=13 QOL 2 XLD=129 ML cysto 11-12-21 = 2.5 cm NON [...] see lab Duration: BPH w obs/luts, UTI [facility] SYMPTOMS SCORE. 1. INCOMPLETE EMPTYING [...] No CVA tenderness. EXTREMITI (more content not included)...NormalSelect [facility] Laboratory - Chemistry and Chemistry - challengeon 50-13-8445Ynzbyigbp Ql (U) NegativeNegativeMercy Health St. Rita'S Medical CenterGlucose (U) [Mass/Vol]Negative NegativeMercy Health St. Rita'S Medical CenterKetones Ql (U)NegativeNegativeMercy Health St. Rita'S Medical CenterpH (U)6.0 [pH]<8.5FSelect Medical [facility], [facility] Specific gravity (U) [Rel density]1.0131.005-1.030[facility] Rita'S Medical CenterLaboratory - Specimen informationon 76-19-4061Ecsytpbuvt (U)CloudyAbnormal ClearMercy Health St. Rita'S Medical CenterColor (U)YellowYellowMercy Health St. Rita'S Medical CenterLaboratory - Urinalysison 31-28-6989Poqrjmz casts LM Ql (Urine sed)0 /LPF0 /LPFulton County Health CenterLeukocyte esterase Test strip Ql (U)3+AbnormalNegMansfield HospitalNitrite Ql (U)Positive AbnormalNegMansfield HospitalProtein Ql (U)NegativeNegative [facility]'S Medical CenterNo Panel Informationon 75-75-0036Jnrjc Bacteria >9821 uLHighNegMansfield HospitalUrine Occult BloodTrace AbnormalNegMansfield HospitalUrine RBC0-2 /HPF0-2 /HPF [facility] Rita'S Medical CenterUrine Squamous Epithelial CellsNone Seen [HPF] [facility] Rita'S Medical CenterUrine Urobilinogen0.2 EU/dL0.2-1.0 EU/dL [facility] Rita'S Medical CenterUrine WBC>20 /HPFAbnormal0-5 /HPFMercy Health St. Rita'S Medical CenterUrinalysis complete panel (U)on 39-26-0896YLUIDBJT UL >9821HighNegativeWyandot Memorial Hospital on above:Order Comment: Specimen Type: URINE SPECIMEN [facility] Address: [address] [place], [place] [address]Performed By: #### 64277-4 #### [facility] CLIA [id number] [address] [place] [address] [place] OF AMERICABilirubin Ql (U)Negative NormalNegativeWyandot Memorial Hospital on above:Order Comment: Specimen Type: URINE SPECIMEN [facility] Address: [address] [id number] By: #### [id number] #### [facility] CLIA [id number] [address] [place], [place] [id number] [place] OF AMERICAClarity (Unsp spec)Cloudy AbnormalClearCPremier Health [facility] on above:Order Comment: Specimen Type: URINE SPECIMEN [facility] Address: [address] [place], [place] [address]Performed By: #### 67245-5 #### [facility] CLIA [id number] [address] [place], [place] [address] [place] OF AMERICAColor (U)YellowNormalYellow [facility] on above:Order Comment: Specimen Type: URINE SPECIMEN [facility] Address: [address] [place], [place] [address]Performed By: #### 85333-9 #### [facility] CLIA [id number] [address] [place], [place] [id number] [place] OF AMERICAEpithelial cells LM.HPF (Urine sed) [#/Area]None SeenNormalCPremier Health [facility] Hospital [facility] on above: Order Comment: Specimen Type: URINE SPECIMEN [facility] Address: [address] [place], [place] [address]Performed By: #### 01434-1 #### [facility] CLIA [id number] [address] [place], [place] [address] [place] OF AMERICAGlucose Test strip (U) [Mass/Vol]NegativeNormalNegativeWyandot Memorial Hospital on above:Order Comment: Specimen Type: URINE SPECIMEN [facility] Address: [address] [place], [place] [address]Performed By: #### 16216-9 #### [facility] CLIA [id number] [address] [place], [place] [address] [place] OF AMERICAHemoglobin Ql (U)Trace AbnormalNegativeWyandot Memorial Hospital on above:Order Comment: Specimen Type: URINE SPECIMEN [facility] Address: [address] [place], [place] [address]Performed By: #### 71444-7 #### [facility] CLIA [id number] [address] [place] [address] [place] OF AMERICAHyaline casts (Urine sed) [#/Area]0 /[LPF]Normal0 /LPFCPremier Health [facility] Hospital [facility] on above:Order Comment: Specimen Type: URINE SPECIMEN [facility] Address: [address] [place], [place] [address]Performed By: #### 53017-1 #### [facility] CLIA [id number] [address] [place] [address] [place] AMERICAKetones Ql (U)NegativeNormal NegativeWyandot Memorial Hospital on above:Order Comment: Specimen Type: URINE SPECIMEN [facility] Address: [address] [place], [place] [address]Performed By: #### 81661-8 #### [facility] CLIA [id number] [address] [place] [address] [place] AMERICALeukocyte esterase Test strip Ql (U)3+AbnormalNegativeWyandot Memorial Hospital on above:Order Comment: Specimen Type: URINE SPECIMEN [facility] Address: [address] [place], [place] [address]Performed By: #### 25901-8 #### [facility] CLIA [id number] [address] [place] [address] [place] AMERICANitrite Ql (U)Positive AbnormalNegativeWyandot Memorial Hospital on above:Order Comment: Specimen Type: URINE SPECIMEN [facility] Address: [address] [place], [place] [address]Performed By: #### 42090-2 #### [facility] CLIA [id number] [address] [place] [address] [place] AMERICApH (U)6.0 [pH]Normal<8.5 [facility] on above:Order Comment: Specimen Type: URINE SPECIMEN [facility] Address: [address] [place], [place] [address]Performed By: #### 15595-4 #### [facility] CLIA [id number] [address] [place] [address] [place] AMERICAProtein (U) [Mass/Vol] NegativeNormalNegativeWyandot Memorial Hospital on above:Order Comment: Specimen Type: URINE SPECIMEN [facility] Address: [address] [place], [place] [address]Performed By: #### 73167-1 #### [facility] CLIA [id number] [address] [place] [address] [place] UC HEALTHRB LM.HPF (Urine sed) [#/Area]0-2 /HPFNormal0-2 /HPFWyandot Memorial Hospital on above:Order Comment: Specimen Type: URINE SPECIMEN [facility] Address: [address] [place], [place] [address]Performed By: #### 92225-0 #### [facility] CLIA [id number] [address] [place] [address] [place] AMERICASpecific gravity (U) [Rel density]1.839Mvwtdt1.005-1.030[facility] on above:Order Comment: Specimen Type: URINE SPECIMEN [facility] Address: [address] [place], [place] [address]Performed By: #### 58395-0 #### [facility] CLIA [id number] [address] [place] [address] [place] AMERICAUrobilinogen Ql (U)0.2 EU/dL Normal0.2-1.0 EU/dLWyandot Memorial Hospital on above:Order Comment: Specimen Type: URINE SPECIMEN [facility] Address: [address] [place], [place] [address]Performed By: #### 75022-6 #### [facility] CLIA [id number] [address] [place] [address] [place] AMERICAWBC LM.HPF (Urine sed) [#/Area]/[HPF]Abnormal0-5 /HPFSelect Medical Specialty Hospital - Cleveland-FairhillComment on above:Order Comment: Specimen Type: URINE SPECIMEN [facility] Address: [address] [place], [place] [address]Performed By: #### 98827-1 #### [facility] CLIA [id number] [address] [place] [address] [place] AMERICALaboratory - Chemistry and Chemistry - challengeon 22-24-9019Lplhiesel Ql (U)COLOR INTERFERENCEAbnormal NEGATIVEMercy Health St. Rita'S Medical CenterKetones Ql (U)COLOR INTERFERENCE mg/dL AbnormalNEGAdena Health Systempecific gravity (U) [Rel density]1.0151.005-1.025Mer[facility] Health St. Rita'S Medical CenterLaboratory - Specimen informationon 06-26-8680Toghopjhop (U)SLIGHTLY CLOUDYAbnormalCLEMercy Health Allen HospitalColor (U)ORANGEAbnormalYELLOWMercy Health St. Rita'S Medical CenterLaboratory - Urinalysison 66-81-6498Tdzigumau esterase Test strip Ql (U) COLOR INTERFERENCEAbnormalNEGAshtabula County Medical CenterMucus Ql (Urine sed)NONE SEENNONE SEENMercy Health St. Rita'S Medical CenterNitrite Ql (U) COLOR INTERFERENCEAbnormalNEGAshtabula County Medical CenterProtein Ql (U)COLOR INTERFERENCE mg/dLAbnormalNEG/TRACEMercy Health St. Rita'S Medical CenterNo Panel Informationon 28-50-5349Ujnwt BacteriaMODERATE #/HPFAbnormalNONE SEEN [facility] Rita'S Medical CenterUrine Culture ReflexedALREADY ORDEREDMercy Health St. Rita'S Medical CenterUrine Glucose (UA)COLOR INTERFERENCE mg/dLAbnormal NEGATIVEMercy Health St. Rita'S Medical CenterUrine Occult BloodCOLOR INTERFERENCE AbnormalNEGAshtabula County Medical CenterUrine Other CastsNONE SEEN #/LPFNONE SEENMercy Health St. Rita'S Medical CenterUrine Other CrystalsNone Seen #/HPFNone St. John of God HospitalUrine pHCOLOR INTERFERENCE Abnormal5.0-9.0Mer[facility] St. Rita'S Medical CenterUrine RBC0-2 #/HPF0-2FSelect Medical Cleveland Clinic Rehabilitation Hospital, AvonUrine Squamous Epithelial CellsRARE #/LPFNONE/RARE [facility] Rita'S Medical CenterUrine UrobilinogenCOLOR INTERFERENCE EU/dL Abnormal0.2-1.0[facility] Rita'S Medical CenterUrine INF44-06 #/HPFAbnormalNONE SEENMercy Health St. Rita'S Medical CenterBasophils Auto (Bld) [#/Vol]on 04-05-2024 Basophils (Bld) [#/Vol]Automated basophil count0.0-0.1FSelect Medical Cleveland Clinic Rehabilitation Hospital, AvonBasophils/100 WBC Auto (Bld)on 64-08-4372Yuozczqok/100 WBC (Bld)Automated basophil %0.2-2.0[facility]. Rita'S Medical CenterEosinophils/100 WBC Auto (Bld)on 74-23-5370Brjsiwzefkn/100 WBC (Bld)Automated eosinophil %0.9-7.[address] Rita'S Medical CenterErythrocyte distribution width Auto (RBC) [Ratio]on 48-68-3271Dygejbtlhys distribution width (RBC) [Ratio]Erythrocyte distribution width [Ratio] by Automated count11.0-15.0[facility]. Rita'S Medical CenterHematocrit Auto (Bld) [Volume fraction]on 12-25-0104Ukvrnkfayw (Bld) [Volume fraction]Hematocrit [Volume Fraction] of Blood by Automated countLow 42.0-54.0[facility] Rita'S Medical CenterHemoglobin [Mass/volume] in Bloodon 74-35-1175Vipjsqxzvz (Bld) [Mass/Vol]Hemoglobin [Mass/volume] in BloodLow 14.0-18.0[facility] Rita'S Medical CenterIron binding capacity [Mass/volume] in Serum or Plasmaon 94-30-2397Nlte binding capacity [Mass/Vol]Iron binding capacity [Mass/volume] in Serum or Lgdqxu440.0-450.0[facility] Rita'S Medical CenterIron saturation [Mass Fraction] in Serum or Plasmaon 18-04-5049Byqi saturation [Mass fraction]Iron saturation [Mass Fraction] in Serum or Plasma [facility] Medical CenterLaboratory - Chemistry and Chemistry - challengeon 00-60-2806Dajituyko (Vitamin B12) [Mass/Vol]491 pg/wV130-[address] Rita'S Medical CenterComment on above:Performed at: - [facility] [address] [id number] Director: Navin High PhD, Phone: [phone] [Mass/Vol]37.0 ng/mL26.0-388.0[facility] Rita'S Medical CenterFree T4 [Mass/Vol]0.83 ng/dL0.76-1.46[facility] Rita'S Medical CenterIron [Mass/Vol]89.0 ug/dL65.0-175.0[facility] Rita'S Medical CenterTSH Qn 3.909 m[IU]/LHigh0.358-3.740[facility] St. Rita'S Medical CenterLaboratory - Hematology and Cell countson 48-72-8987Zrxeikys granulocytes/100 WBC (Bld)0.3 % 0.0-0.5FSelect Medical Cleveland Clinic Rehabilitation Hospital, AvonLeukocytes [#/volume] corrected for nucleated erythrocytes in Blood by Automated counon 30-46-5490WSN corrected for nucl RBC Auto (Bld) [#/Vol]Leukocytes [#/volume] corrected for nucleated erythrocytes in Blood by Automated coun4.0-11.0[facility] Lymphocytes Auto (Bld) [#/Vol]on 77-30-9817Iuwfmfsrrot (Bld) [#/Vol]Lymphocytes [#/volume] in Blood by Automated count1.2-3.8[facility] Lymphocytes/100 WBC Auto (Bld)on 62-96-1763Zfaigtdwrda/100 WBC (Bld) Lymphocytes/100 leukocytes in Blood by Automated count20.5-60.0Grant HospitalH Auto (RBC) [Entitic mass]on 55-50-5548OMS (RBC) [Entitic mass]MCH [Entitic mass] by Automated count25.9-34.0[facility] Rita'S Medical CenterMCHC Auto (RBC) [Mass/Vol]on 30-22-8382KITS (RBC) [Mass/Vol]MCHC [Mass/volume] by Automated count29.9-35.2FSelect Medical Cleveland Clinic Rehabilitation Hospital, AvonMCV Auto (RBC) [Entitic vol]on 64-36-5258NCG (RBC) [Entitic vol]MCV [Entitic volume] by Automated wswbcFxzp36.0-94.0[facility] Rita'S Medical CenterMonocytes Auto (Bld) [#/Vol]on 32-39-9537Dorzsfnbu (Bld) [#/Vol]Automated blood monocyte count High0.3-0.8[facility]. Rita'S Medical CenterMonocytes/100 WBC Auto (Bld)on 94-31-9723Hgbvtbihg/100 WBC (Bld)Automated monocyte %High1.7-12.0[facility] Rita'S Medical CenterNeutrophils Auto (Bld) [#/Vol]on 22-84-3569Pmyqayjswdt (Bld) [#/Vol]Neutrophils [#/volume] in Blood by Automated count1.4-6.5FSelect Medical Cleveland Clinic Rehabilitation Hospital, AvonNeutrophils/100 WBC Auto (Bld)on 04-05-2024 Neutrophils/100 WBC (Bld)Automated neutrophil %43.0-75.0[facility]'S Medical CenterNo Panel Informationon 98-45-1064Ivxtnkcaago # (Auto)0.2 10 3/uL 0.0-0.7FSelect Medical Cleveland Clinic Rehabilitation Hospital, AvonFolate23.60 ng/mL8.60-58.90[facility] Rita'S Medical CenterImmature Granulocyte # (Auto)0.02 10 3/uL0.00-0.[address] Rita'S Medical CenterPlatelet mean volume Auto (Bld) [Entitic vol]on 03-00-3558Snirdajx mean volume (Bld) [Entitic vol]Platelet mean volume [Entitic volume] in Blood by Automated countLow9.5-13.5FSelect Medical [facility] Clinic Rehabilitation Hospital, [facility] Platelets Auto (Bld) [#/Vol]on 83-33-2068Nluuvhduz (Bld) [#/Vol]Platelets [#/volume] in Blood by Automated zocyx394-839HbpdilaamMercy Health St. Rita'S Medical Center RBC Auto (Bld) [#/Vol]on 58-91-1195SBI (Bld) [#/Vol]Erythrocytes [#/volume] in Blood by Automated countLow4.70-6.10[facility] Medical Centererum or plasma thyroperoxidase antibody assay (units/volume)on 30-00-9355BED Ab QnSerum or plasma thyroperoxidase antibody assay (units/volume)0-34Mer[facility] St. Rita'S Medical CenterComment on above:Performed at: [facility] [id number] Director: Navin High PhD, Phone: [phone] Ophthalmic OCT panelon 52-23-4665PSJCCenterpoint Medical Center Eye Images reviewed and comparison made to [...] Stable. No changes over the last 3 months.[facility] HealthcareRadiology Study observation (narrative)[facility] HealthcarePerimetry studyon 40-27-3306EQFD HealthcareRadiology Study observation (narrative)[facility] HealthcareLaboratory - Chemistry and Chemistry - challengeon 86-31-9736Cxlpzpyrw Ql (U)Negative [facility]'S Medical CenterGlucose (U) [Mass/Vol]NegativeMercy Health St. Rita'S Medical CenterKetones Ql (U)[facility] CincinnatipH (U)5.0 [pH][facility] Medical Centerpecific gravity (U) [Rel density] 1.010Mer[facility] Health St. Rita'S Medical CenterUrobilinogen (U) [Mass/Vol]0.2 mg/dL [facility] Medical CenterLaboratory - Specimen informationon 03-20-2024 Appearance (U)clearMercy Health St. Rita'S Medical CenterColor (U)yellowMercy Health St. Rita'S Medical CenterLaboratory - Urinalysison 03-50-6286Cthhqfyar esterase Test strip Ql (U)NegativeMercy Health St. Rita'S Medical CenterNitrite Ql (U)Negative [facility]'S Medical CenterProtein Ql (U)+[facility]'S Medical CenterNo Panel Informationon 90-67-1467Jqqby Occult BloodNegativeMercy Health St. Rita'S Medical CenterFPG ECG *CARDIOLOGY ONLY*on 27-41-1272CPI ECG *CARDIOLOGY ONLY*[facility] [place] [address] Electrocardiograph Report Signed Patient: Norberto Washington MR#: [id number] [birth year] : 1940 Acct:[id number] Age/Sex: 83 / M ADM Date: 03/14/24 Loc: EKGCARD Room: Type: [facility] Attending Dr: Keely Hernandez MD Ordering [...] change was found Confirmed by Keely Hernandez ([id number]) on 03/14/2024 6:03:36 PM Referred By: Electronically Signed By: Keely Hernandez Transcribed By: MUS Signed By Keely Hernandez MD 03/14/[address] [place] [address] Physician GroupBasophils Auto (Bld) [#/Vol]on 78-38-9423Capcxdadt (Bld) [#/Vol]Automated basophil count0.0-0.1FSelect Medical Cleveland Clinic Rehabilitation Hospital, AvonBasophils/100 WBC Auto (Bld)on 90-58-7302Yfcecwayi/100 WBC (Bld)Automated basophil %0.2-2.0[facility] Eosinophils/100 WBC Auto (Bld)on 96-32-5281Jocnbljgfnt/100 WBC (Bld)Automated eosinophil %Low0.9-7.0[facility] Rita'S Medical CenterErythrocyte distribution width Auto (RBC) [Ratio]on 51-51-3058Ktyiayjkbso distribution width (RBC) [Ratio]Erythrocyte distribution width [Ratio] by Automated count11.0-15.[address] Rita'S Medical CenterEstimated glomerular filtration rate (GFR) non- Americanon 66-87-8768MIC/1.73 sq M.predicted among non-blacks MDRD (S/P/Bld) [Vol rate/Area]Estimated glomerular filtration rate (GFR) non- AmericanLow>=60 mL/min/1.73m 2FSelect Medical Cleveland Clinic Rehabilitation Hospital, AvonGlobulin Calc (S) [Mass/Vol]on 52-45-6577Nyyumump (S) [Mass/Vol]Serum globulin measurement by calculation (mass/volume)[facility]'S Medical CenterHematocrit Auto (Bld) [Volume fraction]on 65-12-9695Obhfvajgrx (Bld) [Volume fraction]Hematocrit [Volume Fraction] of Blood by Automated byxqwZtu13.0-54.0[facility] Rita'S Medical CenterHemoglobin [Mass/volume] in Bloodon 24-35-0415Tvapsnmxns (Bld) [Mass/Vol]Hemoglobin [Mass/volume] in LugniHtf67.0-18.0[facility] Rita'S Medical CenterINR in Platelet poor plasma by Coagulation assayon 25-63-7502QWS Coag (PPP) [Relative time]INR in Platelet poor plasma by Coagulation assay [facility] Rita'S Medical CenterComment on above:DESIRED INR:2.0-3.0 CONDITIONS NOT LISTED BELOW2.5-3.5 FOR PROSTHETIC HEART VALVE REPLACEMENT2.5-3.5 RECURRENT THROMBOSISLaboratory - Chemistry and Chemistry - challengeon 76-44-5924Rryeimipy Ql (U)NegativeNEGATIVEMercy Health St. Rita'S Medical CenterGlucose (U) [Mass/Vol] NegativeNEGATIVEMercy Health St. Rita'S Medical CenterKetones Ql (U)NegativeNEGATIVE [facility]'S Medical CenterpH (U)6.0 [pH]5.0-9.0[facility] Medical Centerpecific gravity (U) [Rel density]1.0251.005-1.025[facility] Rita'S Medical CenterUrobilinogen Qn (U)0.2 {Americo'U}/dL0.2-1.0[facility]'S Medical CenterAlbumin [Mass/Vol]3.8 g/dL3.4-5.0[facility] ALP [Catalytic activity/Vol]66 U/T92-102BdkuvcjgqMercy Health St. Rita'S Medical CenterALT [Catalytic activity/Vol]26 U/Z22-96SxpcnfmlmMercy Health St. Rita'S Medical CenterAST [Catalytic activity/Vol]25 U/C09-06BcavitkriMercy Health St. Rita'S Medical CenterBilirubin [Mass/Vol]0.5 mg/dL0.2-1.0[facility]'S Medical CenterCalcium [Mass/Vol]8.8 mg/dL8.5-10.1FSelect Medical Cleveland Clinic Rehabilitation Hospital, AvonChloride [Moles/Vol]100 mmol/L 98-107Mer[facility] St. Rita'S Medical CenterCO2 [Moles/Vol]26.3 mmol/L21.0-32.[address] Rita'S Medical CenterCreatinine [Mass/Vol]1.27 mg/dL0.70-1.[address] Rita'S Medical CenterGFR/1.73 sq M.predicted MDRD (S/P/Bld) [Vol rate/Area]mL/min/{1.73_m2}>=60 mL/min/1.73m 2FSelect Medical Cleveland Clinic Rehabilitation Hospital, [facility]on Glucose [Mass/Vol]116 mg/hKLceq92-934XqmdwkratMercy Health St. Rita'S Medical Center Natriuretic peptide B (Bld) [Mass/Vol]254.0 pg/mL<=1800.0[facility] Rita'S Medical CenterPotassium [Moles/Vol]4.7 mmol/L3.5-5.1FSelect Medical Cleveland Clinic Rehabilitation Hospital, AvonProtein [Mass/Vol]7.0 g/dL6.4-8.2FDetwiler Memorial Hospitalodium [Moles/Vol]136 mmol/P808-735GunkmrpbaMercy Health St. Rita'S Medical CenterUrea nitrogen [Mass/Vol]20.0 mg/dLHigh7.0-18.0[facility] Rita'S Medical CenterUrea nitrogen/Creatinine [Mass ratio]15.7 mg/mgMercy Health St. Rita'S Medical Center Laboratory - Hematology and Cell countson 84-06-4924Gpzjdpvw granulocytes/100 WBC (Bld)0.7 %High0.0-0.5FSelect Medical Cleveland Clinic Rehabilitation Hospital, AvonLaboratory - Specimen informationon 65-13-4182Lrionofszf (U)CLEARCLEARFSelect Medical [facility] Clinic Rehabilitation Hospital, AvonColor (U)LT. YELLOWYELLOWMercy Health St. Rita'S Medical CenterLaboratory - Urinalysison 58-33-3521Zszcufwyk esterase Test strip Ql (U)SMALLAbnormalNEGATIVE [facility] Rita'S Medical CenterMucus Ql (Urine sed)NONE SEENNONE SEENMercy Health St. Rita'S Medical CenterNitrite Ql (U)PositiveAbnormalNEGATIVEMercy Health St. Rita'S Medical CenterProtein Ql (U)NegativeNEG/TRACEMercy Health St. Rita'S Medical Center Leukocytes [#/volume] corrected for nucleated erythrocytes in Blood by Automated counon 09-09-0864VLU corrected for nucl RBC Auto (Bld) [#/Vol]Leukocytes [#/volume] corrected for nucleated erythrocytes in Blood by Automated counHigh 4.0-11.0[facility] Rita'S Medical CenterLymphocytes Auto (Bld) [#/Vol]on 37-62-5014Gcuffyfoncn (Bld) [#/Vol]Lymphocytes [#/volume] in Blood by Automated countLow1.2-3.8[facility] Rita'S Medical CenterLymphocytes/100 WBC Auto (Bld)on 87-76-1576Pzywfulwytd/100 WBC (Bld)Lymphocytes/100 leukocytes in Blood by Automated wmuelPid51.5-60.0Grant HospitalH Auto (RBC) [Entitic mass]on 48-19-5524MPH (RBC) [Entitic mass]MCH [Entitic mass] by Automated count25.9-34.0[facility] Rita'S Medical CenterMCHC Auto (RBC) [Mass/Vol]on 12-43-5020FYPH (RBC) [Mass/Vol]MCHC [Mass/volume] by Automated count29.9-35.2FSelect Medical Cleveland Clinic Rehabilitation Hospital, AvonMCV Auto (RBC) [Entitic vol]on 77-30-3219QOX (RBC) [Entitic vol]MCV [Entitic volume] by Automated countHigh 80.0-94.0[facility] Rita'S Medical CenterMonocytes Auto (Bld) [#/Vol]on 09-67-5706Eymkhgqwl (Bld) [#/Vol]Automated blood monocyte count0.3-0.8[facility] Rita'S Medical CenterMonocytes/100 WBC Auto (Bld)on 92-77-1987Svbtbjkjx/100 WBC (Bld)Automated monocyte %1.7-12.0[facility] Neutrophils Auto (Bld) [#/Vol]on 27-58-8598Ewbnlbevbmj (Bld) [#/Vol]Neutrophils [#/volume] in Blood by Automated countHigh1.4-6.5FSelect Medical Cleveland Clinic Rehabilitation Hospital, AvonNeutrophils/100 WBC Auto (Bld)on 69-78-7003Lnxdrvnqntl/100 WBC (Bld) Automated neutrophil %High43.0-75.0[facility] Medical CenterNo Panel Informationon 71-32-9307Memaa BacteriaMODERATE #/HPFAbnormalNONE [facility] CenterUrine Culture ReflexedYEHenry County HospitalUrine Occult BloodTRACE-INEGATIVEMercy Health St. Rita'S Medical CenterUrine Other CastsNONE SEEN #/LPFNONE [facility] CenterUrine Other CrystalsNone Seen #/HPFNone [facility] HospitalUrine RBC0-2 #/HPF0-2FSelect Medical Cleveland Clinic Rehabilitation Hospital, AvonUrine Squamous Epithelial CellsFEW #/LPFAbnormalNONE/RAREMercy Health St. Rita'S Medical CenterUrine EMY48-51 #/HPF AbnormalNONE [facility] Medical CenterEosinophils # (Auto)0.1 10 3/uL0.0-0.7FSelect Medical Cleveland Clinic Rehabilitation Hospital, AvonImmature Granulocyte # (Auto)0.10 10 3/uLHigh0.00-0.03[facility] Medical CenterTroponin I High Sensitivity 6.6 pg/mL4.0-76.1FSelect Medical Cleveland Clinic Rehabilitation Hospital, AvonComment on above:CUT-OFF POINTS HAVE BEEN ESTABLISHED BASED [...] volume [Entitic volume] in Blood by Automated countLow9.5-13.5FSelect Medical Cleveland Clinic Rehabilitation Hospital, AvonPlatelets Auto (Bld) [#/Vol]on 70-99-8372Togupuisb (Bld) [#/Vol]Platelets [#/volume] in Blood by Automated hbaxb741-566HoiccbfcoMercy Health St. Rita'S Medical CenterProthrombin time (PT)on 79-99-3449UE Coag (PPP) [Time]Prothrombin time (PT)9.0-11.6FSelect Medical Cleveland Clinic Rehabilitation Hospital, AvonRBC Auto (Bld) [#/Vol]on 91-81-3747SIW (Bld) [#/Vol] Erythrocytes [#/volume] in Blood by Automated countLow4.70-6.10[facility] Medical Centererum or plasma albumin/globulin mass ratioon 03-11-2024 Albumin/Globulin [Mass ratio]Serum or plasma albumin/globulin mass ratio [facility] Centererum or plasma anion gap determinationon 94-53-4140Qcngc gap [Moles/Vol]Serum or plasma anion gap determinationMercy Health St. Rita'S Medical CenterUrine Cultureon 45-24-3821Lpehdldv identified Cx Nom (U) ORGANISM: Klebsiella oxytoca (O:KLEOXY) [place]erry Count >100,000 Aerobic ROCIO Charge (NMIC56) SUSCEPTIBILITY [...] RESISTANT TO ALL B-LACTAM DRUGS. PERFORMED BY: [facility] [address] [id number] PATHOLOGIST SCALE ASSEMBLY SET UP WORKER YOON LAYNE M.D.NormalThe [facility] Physician GroupComment on above: Performed By: #### CUU #### [facility] [address] [id number] USAUrine cultureOrdered By: Juan Sal on 92-97-1363Slyvbddt identified Cx Nom (U)AbnormalMercy Health St. Rita'S Medical CenterBacteria identified Cx Nom (U)AbnormalMercy Health St. Rita'S Medical CenterBacteria Ur Culton 99-37-5833Egjqmhqq identified Cx Nom (U)CULTURE, URINE: No growth (<1,000 CFU/ml)NormalSelect Medical Specialty Hospital - Cleveland-FairhillComment on above: Performed By: #### 630-4 #### [facility] CLIA [id number] [address] [place] [address] [place] OF AMERICALaboratory - Chemistry and Chemistry - challengeon 27-05-5470Zjnmpmtcx Ql (U)NegativeNegativeMercy Health St. Rita'S Medical CenterGlucose (U) [Mass/Vol]NegativeNegativeMercy Health St. Rita'S Medical CenterKetones Ql (U)NegativeNegMansfield HospitalpH (U)5.5 [pH]<8.5FDetwiler Memorial Hospitalpecific gravity (U) [Rel density]1.0161.005-1.030[facility] Medical CenterLaboratory - Microbiology and Antimicrobial susceptibilityOrdered By: Leticia Milian on 14-14-1130Vgjsbsei identified Cx Nom (U)[facility] Laboratory - Specimen informationon 03-73-4904Eylbgcvzmc (U)ClearClearFSelect Medical Cleveland Clinic Rehabilitation Hospital, AvonColor (U)YellowYelAvita Health System Laboratory - Urinalysison 54-99-6327Ahcuircc LM.HPF (Urine sed) [#/Area]Negative NegativeMercy Health St. Rita'S Medical CenterHyaline casts LM Ql (Urine sed)0 /LPF0 /LPFFSelect Medical Cleveland Clinic Rehabilitation Hospital, AvonLeukocyte esterase Test strip Ql (U) NegativeNegativeMercy Health St. Rita'S Medical CenterNitrite Ql (U)NegativeNegative [facility] Medical CenterProtein Ql (U)NegativeNegativeMercy Health St. Rita'S Medical CenterNo Panel Informationon 93-77-2570Ktaai Occult Blood NegativeNegativeMercy Health St. Rita'S Medical CenterUrine RBC0-2 /HPF0-2 /HPF [facility]'S Medical CenterUrine Squamous Epithelial CellsNone Seen [HPF] [facility]'S Medical CenterUrine Urobilinogen0.2 EU/dL0.2-1.0 EU/dL [facility]'S Medical CenterUrine WBC0-5 /HPF0-5 /HPFMercy Health St. Rita'S Medical CenterUrinalysis complete panel (U)on 20-88-4664Cjqgvozd LM.HPF (Urine sed) [#/Area]NegativeNormalNegativeWyandot Memorial Hospital on above: Order Comment: Specimen Type: URINE SPECIMEN [facility] Address: [address] [place], [place] [address]Performed By: #### [id number] #### [facility] CLIA [id number] [address] [place] [address] [place] AMERICABilirubin Ql (U)Negative NormalNegativeWyandot Memorial Hospital on above:Order Comment: Specimen Type: URINE SPECIMEN [facility] Address: [address] [place], [place] [address]Performed By: #### [id number] #### [facility] CLIA [id number] [address] [place] [address] [place] AMERICAClarity (Unsp spec)Clear NormalClearCPremier Health Miami Valley Hospital South on above:Order Comment: Specimen Type: URINE SPECIMEN [facility] Address: [address] [place], [place] [address]Performed By: #### [id number] #### [facility] CLIA [id number] [address] [place] [address] [place] AMERICAColor (U)YellowNormalYellow [facility] on above:Order Comment: Specimen Type: URINE SPECIMEN [facility] Address: [address] [place], [place] [address]Performed By: #### [id number] #### [facility] CLIA [id number] [address] [place] [address] [place] AMERICAEpithelial cells LM.HPF (Urine sed) [#/Area]None SeenNormalCPremier Health [facility] Hospital South on above: Order Comment: Specimen Type: URINE SPECIMEN [facility] Address: [address] [place], [place] [address]Performed By: #### [id number] #### [facility] CLIA [id number] [address] [place] [address] [place] AMERICAGlucose Test strip (U) [Mass/Vol]NegativeNormalNegativeWyandot Memorial Hospital on above:Order Comment: Specimen Type: URINE SPECIMEN [facility] Address: [address] [place], [place] [address]Performed By: #### [id number] #### [facility] CLIA [id number] [address] [place] [address] [place] AMERICAHemoglobin Ql (U)Negative NormalNegativeWyandot Memorial Hospital on above:Order Comment: Specimen Type: URINE SPECIMEN [facility] Address: [address] [place], [place] [address]Performed By: #### 90162-7 #### [facility] CLIA [id number] [address] [place] [address] [place] AMERICAHyaline casts (Urine sed) [#/Area]0 /[LPF]Normal0 /LPFCPremier Health Miami [facility] Hospital [facility] on above:Order Comment: Specimen Type: URINE SPECIMEN [facility] Address: [address] [place], [place] [address]Performed By: #### [id number] #### [facility] CLIA [id number] [address] [place] [address] [place] AMERICAKetones Ql (U)NegativeNormal NegativeWyandot Memorial Hospital on above:Order Comment: Specimen Type: URINE SPECIMEN [facility] Address: [address] [place], [place] [address]Performed By: #### [id number] #### [facility] CLIA [id number] [address] [place] [address] [place] AMERICALeukocyte esterase Test strip Ql (U)NegativeNormalNegativeWyandot Memorial Hospital on above: Order Comment: Specimen Type: URINE SPECIMEN [facility] Address: [address] [place], [place] [address]Performed By: #### [id number] #### [facility] CLIA [id number] [address] [place] [address] [place] AMERICANitrite Ql (U)NegativeNormal NegativeWyandot Memorial Hospital on above:Order Comment: Specimen Type: URINE SPECIMEN [facility] Address: [address] [place], [place] [address]Performed By: #### [id number] #### [facility] CLIA [id number] [address] [place] [address] [place] AMERICApH (U)5.5 [pH]Normal<8.5 [facility] on above:Order Comment: Specimen Type: URINE SPECIMEN [facility] Address: [address] [place], [place] [address]Performed By: #### [id number] #### [facility] CLIA [id number] [address] [place] [address] [place] AMERICAProtein (U) [Mass/Vol] NegativeNormalNegativeWyandot Memorial Hospital on above:Order Comment: Specimen Type: URINE SPECIMEN [facility] Address: [address] [place], [place] [address]Performed By: #### [id number] #### [facility] CLIA [id number] [address] [place] [address] [place] UC HEALTHRB LM.HPF (Urine sed) [#/Area]0-2 /HPFNormal0-2 /HPFWyandot Memorial Hospital on above:Order Comment: Specimen Type: URINE SPECIMEN [facility] Address: [address] [place], [place] [address]Performed By: #### 88035-7 #### [facility] [place] [id number] [address] [place] [address] [place] AMERICASpecific gravity (U) [Rel density]1.557Ypnyle9.005-1.030[facility] on above:Order Comment: Specimen Type: URINE SPECIMEN [facility] Address: [address] [place], [place] [address]Performed By: #### 87262-3 #### [facility] [place] [id number] [address] [place] [address] STATES OF UC HEALTHUrobilinogen Ql (U)0.2 EU/dL Normal0.2-1.0 EU/dLWyandot Memorial Hospital on above:Order Comment: Specimen Type: URINE SPECIMEN [facility] Address: [address] [place], [place] [address]Performed By: #### 75285-0 #### [facility] [place] [id number] [address] [place] [address] [place] AMERICAW LM.HPF (Urine sed) [#/Area]0-5 /HPFNormal0-5 /HPFWyandot Memorial Hospital on above:Order Comment: Specimen Type: URINE SPECIMEN [facility] Address: [address] [place], [place] [address]Performed By: #### 66691-3 #### [facility] [place] [id number] [address] [place] [address] [place] AMERICACNOVon 04-87-5817ZBZXShavpd Visit (UROLLN) NORBERTO WASHINGTON ([id number]) 1940 M Date Time Provider Department 02/08/24 8:30 AM LETICIA MILIAN UROLLN During your visit today, we recorded the following information about you: Pulse Blood pressure Weight 54/minute 119/58 102.1 kg Leticia Milian, BILLING CUSTOMER SERVICE REPRESENTATIVE.[facility] 02/08/2024 9:06 AM Signed Norberto Washington [address] [facility] [address] HISTORY OF PRESENT ILLNESS: Seen 08/04/23 for BPH w obs/luts, UTI 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 1. INCOMPLETE EMPTYING [...] tenderness. EXTREMITIES: No le (more content not included)...NormalSelect Medical Specialty Hospital - Cleveland-FairhillBasophils Auto (Bld) [#/Vol]on 92-04-0217Gywbbknwp (Bld) [#/Vol] Automated basophil count0.0-0.1FSelect Medical Cleveland Clinic Rehabilitation Hospital, AvonBasophils/100 WBC Auto (Bld)on 32-52-0958Qizrovtxq/100 WBC (Bld)Automated basophil %0.2-2.[address] [facility] CenterEosinophils/100 WBC Auto (Bld)on 01-30-2024 Eosinophils/100 WBC (Bld)Automated eosinophil %0.9-7.0[facility] Medical CenterErythrocyte distribution width Auto (RBC) [Ratio]on 78-20-8337Cogjenuztcy distribution width (RBC) [Ratio]Erythrocyte distribution width [Ratio] by Automated count11.0-15.0[facility] Medical CenterEstimated glomerular filtration rate (GFR) non- Americanon 37-50-4297LHM/1.73 sq M.predicted among non-blacks MDRD (S/P/Bld) [Vol rate/Area]Estimated glomerular filtration rate (GFR) non- AmericanLow>=60 mL/min/1.73m 2FSelect Medical Cleveland Clinic Rehabilitation Hospital, AvonGlobulin Calc (S) [Mass/Vol]on 69-23-3433Tjuacpod (S) [Mass/Vol]Serum globulin measurement by calculation (mass/volume)[facility] Medical CenterHematocrit Auto (Bld) [Volume fraction]on 35-13-7505Aqmsjsfuqi (Bld) [Volume fraction]Hematocrit [Volume Fraction] of Blood by Automated countLow 42.0-54.0[facility] Medical CenterHemoglobin [Mass/volume] in Bloodon 03-94-5286Hklrhjnwvu (Bld) [Mass/Vol]Hemoglobin [Mass/volume] in Blood14.0-18.[address] [facility] Medical CenterINR in Platelet poor plasma by Coagulation assayon 61-74-8148ZBO Coag (PPP) [Relative time]INR in Platelet poor plasma by Coagulation assayMercy Health St. Rita'S Medical CenterComment on above:DESIRED INR:2.0-3.0 CONDITIONS NOT LISTED BELOW2.5-3.5 FOR PROSTHETIC HEART VALVE REPLACEMENT2.5-3.5 RECURRENT THROMBOSISLaboratory - Chemistry and Chemistry - challengeon 76-27-0158Xwjvfns [Mass/Vol]3.9 g/dL3.4-5.0[facility] Medical CenterALP [Catalytic activity/Vol]79 U/L53-787WibdjzsedMercy Health St. Rita'S Medical CenterALT [Catalytic activity/Vol]25 U/K20-19ZxwonnfmgMercy Health St. [facility]'S Medical Center AST [Catalytic activity/Vol]25 U/T21-42GsyagewjmMercy Health St[address] [facility]'S [facility] Center Bilirubin [Mass/Vol]0.4 mg/dL0.2-1.0[facility] Medical CenterCalcium [Mass/Vol]9.3 mg/dL8.5-10.1FSelect Medical Cleveland Clinic Rehabilitation Hospital, AvonChloride [Moles/Vol] 103 mmol/X66-112OpzxszmfaMercy Health St. Rita'S Medical CenterCO2 [Moles/Vol]24.9 mmol/L 21.0-32.0[facility] Medical CenterCreatinine [Mass/Vol]1.32 mg/dLHigh 0.70-1.30[facility] Medical CenterGFR/1.73 sq M.predicted MDRD (S/P/Bld) [Vol rate/Area]mL/min/{1.73_m2}>=60 mL/min/1.73m 2FSelect Medical Cleveland Clinic Rehabilitation Hospital, AvonGlucose [Mass/Vol]113 mg/pTQesv57-721TmjthvxihMercy Health St. [facility]'S Medical Center Magnesium [Mass/Vol]2.2 mg/dL1.8-2.4FSelect Medical Cleveland Clinic Rehabilitation Hospital, AvonPotassium [Moles/Vol]4.5 mmol/L3.5-5.1FSelect Medical Cleveland Clinic Rehabilitation Hospital, AvonProtein [Mass/Vol] 7.3 g/dL6.4-8.2FDetwiler Memorial Hospitalodium [Moles/Vol]138 mmol/L 136-145[facility]'S Medical CenterUrea nitrogen [Mass/Vol]18.0 mg/dL 7.0-18.0[facility] Medical CenterUrea nitrogen/Creatinine [Mass ratio] 13.6 mg/mgMercy Health St. Rita'S Medical CenterTSH Qn7.582 m[IU]/LHigh0.358-3.[address] [facility] Medical CenterLaboratory - Hematology and Cell countson 86-04-2923Bthigzen granulocytes/100 WBC (Bld)0.5 %0.0-0.5FSelect Medical Cleveland Clinic Rehabilitation Hospital, AvonLeukocytes [#/volume] corrected for nucleated erythrocytes in Blood by Automated counon 88-43-4773FNM corrected for nucl RBC Auto (Bld) [#/Vol]Leukocytes [#/volume] corrected for nucleated erythrocytes in Blood by Automated coun4.0-11.0[facility]'S Medical CenterLymphocytes Auto (Bld) [#/Vol]on 43-43-3683Nmfruklohqg (Bld) [#/Vol]Lymphocytes [#/volume] in Blood by Automated count1.2-3.8[facility]S Medical CenterLymphocytes/100 WBC Auto (Bld)on 42-26-0234Xeodzevazsg/100 WBC (Bld)Lymphocytes/100 leukocytes in Blood by Automated count20.5-60.0Grant HospitalH Auto (RBC) [Entitic mass]on 02-91-9970KES (RBC) [Entitic mass]MCH [Entitic mass] by Automated count25.9-34.0Grant HospitalHC Auto (RBC) [Mass/Vol]on 82-55-0074KECY (RBC) [Mass/Vol]MCHC [Mass/volume] by Automated vuqdyRamm77.9-35.2FSelect Medical Cleveland Clinic Rehabilitation Hospital, AvonMCV Auto (RBC) [Entitic vol] on 35-45-9986RJC (RBC) [Entitic vol]MCV [Entitic volume] by Automated count 80.0-94.0[facility] Medical CenterMonocytes Auto (Bld) [#/Vol]on 56-99-8971Xtepxnsrr (Bld) [#/Vol]Automated blood monocyte countHigh0.3-0.[address] [facility] Medical CenterMonocytes/100 WBC Auto (Bld)on 01-30-2024 Monocytes/100 WBC (Bld)Automated monocyte %High1.7-12.0[facility]'S Medical CenterNeutrophils Auto (Bld) [#/Vol]on 58-74-6508Awsxeqsmmpj (Bld) [#/Vol]Neutrophils [#/volume] in Blood by Automated count1.4-6.5FSelect Medical Cleveland Clinic Rehabilitation Hospital, AvonNeutrophils/100 WBC Auto (Bld)on 01-30-2024 Neutrophils/100 WBC (Bld)Automated neutrophil %43.0-75.0[facility] Medical CenterNo Panel Informationon 47-94-5552Coswxjmc I High Gemkfrylykv36.5 pg/mL4.0-76.1FSelect Medical Cleveland Clinic Rehabilitation Hospital, AvonComment on above:CUT-OFF POINTS HAVE BEEN ESTABLISHED BASED [...] DIAGNOSTIC AND CLINICAL INFORMATION.Eosinophils # (Auto)0.2 10 3/uL0.0-0.7FSelect Medical Cleveland Clinic Rehabilitation Hospital, AvonImmature Granulocyte # (Auto)0.05 10 3/uLHigh0.00-0.03[facility]'S Medical CenterPlatelet mean volume Auto (Bld) [Entitic vol]on 01-17-6486Hkzaqsay mean volume (Bld) [Entitic vol]Platelet mean volume [Entitic volume] in Blood by Automated countLow9.5-13.5FSelect Medical Cleveland Clinic Rehabilitation Hospital, AvonPlatelets Auto (Bld) [#/Vol]on 32-56-1423Unlmeireg (Bld) [#/Vol]Platelets [#/volume] in Blood by Automated -572VvasajvbjMercy Health St. Rita'S Medical CenterProthrombin time (PT)on 37-29-9491FD Coag (PPP) [Time]Prothrombin time (PT)9.0-11.6FSelect Medical Cleveland Clinic Rehabilitation Hospital, AvonRBC Auto (Bld) [#/Vol]on 65-61-0473WVE (Bld) [#/Vol]Erythrocytes [#/volume] in Blood by Automated countLow4.70-6.10[facility] Medical Centererum or plasma albumin/globulin mass ratioon 29-69-9212Wvpgimh/Globulin [Mass ratio]Serum or plasma albumin/globulin mass ratioDiley Ridge Medical Centererum or plasma anion gap determinationon 45-00-8462Jioqe gap [Moles/Vol]Serum or plasma anion gap determinationMercy Health St. Rita'S Medical CenterBasophils Auto (Bld) [#/Vol]on 71-27-7987Kwoplwbdb (Bld) [#/Vol]Automated basophil count0.0-0.1FSelect Medical Cleveland Clinic Rehabilitation Hospital, AvonBasophils/100 WBC Auto (Bld)on 37-88-2940Jazevelfe/100 WBC (Bld)Automated basophil %0.2-2.0[facility] Medical CenterCholesterol in LDL Calc [Mass/Vol]on 12-30-2023 Cholesterol in LDL [Mass/Vol]Cholesterol in LDL [Mass/volume] in Serum or Plasma by calculationMercy Health St. Rita'S Medical CenterComment on above:<100 mg/dl QLLKNQP183-393 mg/dl NEAR OR ABOVE RPDVUAN154-188 mg/dl BORDERLINE EEIB187-934 mg/dl HIGH>190 mg/dl VERY HIGHCholesterol in VLDL Calc [Mass/Vol]on 12-30-2023 Cholesterol in VLDL [Mass/Vol]Cholesterol in VLDL [Mass/volume] in Serum or Plasma by calculationMercy Health St. Rita'S Medical CenterEosinophils/100 WBC Auto (Bld)on 88-39-9134Cpmrjdtjbnq/100 WBC (Bld)Automated eosinophil %0.9-7.[address] [facility]'S Medical CenterErythrocyte distribution width Auto (RBC) [Ratio]on 41-66-4282Rbetbsxfyaf distribution width (RBC) [Ratio]Erythrocyte distribution width [Ratio] by Automated count11.0-15.0[facility] Medical CenterEstimated glomerular filtration rate (GFR) non- Americanon 50-43-4894FWV/1.73 sq M.predicted among non-blacks MDRD (S/P/Bld) [Vol rate/Area]Estimated glomerular filtration rate (GFR) non- AmericanLow>=60 mL/min/1.73m 2FSelect Medical Cleveland Clinic Rehabilitation Hospital, AvonGlobulin Calc (S) [Mass/Vol]on 12-58-7445Gwyzpqwl (S) [Mass/Vol]Serum globulin measurement by calculation (mass/volume)[facility] Medical CenterGlucose mean value [Mass/volume] in Blood Estimated from glycated hemoglobinon 17-08-3633Tealsnz glucose Estimated from glycated hemoglobin (Bld) [Mass/Vol]Glucose mean value [Mass/volume] in Blood Estimated from glycated hemoglobinMercy Health St. Rita'S Medical CenterHematocrit Auto (Bld) [Volume fraction]on 06-12-1248Tummifyfnl (Bld) [Volume fraction]Hematocrit [Volume Fraction] of Blood by Automated count Low42.0-54.0[facility]'S Medical CenterHemoglobin [Mass/volume] in Bloodon 47-48-3288Hrgiikunxv (Bld) [Mass/Vol]Hemoglobin [Mass/volume] in Blood14.0-18.[address] [facility] Medical CenterLaboratory - Chemistry and Chemistry - challengeon 76-63-0311Jhrrtfe [Mass/Vol]3.6 g/dL3.4-5.0[facility] Medical CenterALP [Catalytic activity/Vol]58 U/A22-471IlobycvmyMercy Health St. Rita'S Medical CenterALT [Catalytic activity/Vol]28 U/J97-05QowcgwromMercy Health St. [facility]'S [facility] Center AST [Catalytic activity/Vol]21 U/O73-40NaftqqbtxMercy Health St. [facility]'S [facility] Center Bilirubin [Mass/Vol]0.7 mg/dL0.2-1.0[facility] Medical CenterCalcium [Mass/Vol]8.8 mg/dL8.5-10.1FSelect Medical Cleveland Clinic Rehabilitation Hospital, AvonChloride [Moles/Vol] 102 mmol/Q87-023PlcpgqeghMercy Health St. Rita'S Medical CenterCholesterol [Mass/Vol]168 mg/dL <=200Mer[facility]'S Medical CenterCholesterol in HDL [Mass/Vol]55 mg/dL40-[address] [facility]'S Medical CenterComment on above:> or =60 mg/dl - LOW CARDIOVASCULAR RISK<40 mg/dl - HIGH CARDIOVASCULAR RISKCO2 [Moles/Vol]27.5 mmol/L21.0-32.0[facility] Medical CenterCreatinine [Mass/Vol]1.44 mg/dL High0.70-1.30[facility] Medical CenterGFR/1.73 sq M.predicted MDRD (S/P/Bld) [Vol rate/Area]57 mL/min/{1.73_m2}Low>=60 mL/min/1.73m 2FSelect Medical Cleveland Clinic Rehabilitation Hospital, AvonGlucose [Mass/Vol]101 mg/tQ69-983VlpihrhuqMercy Health St. Rita'S Medical CenterPotassium [Moles/Vol]4.4 mmol/L3.5-5.1FSelect Medical Cleveland Clinic Rehabilitation Hospital, AvonProtein [Mass/Vol]6.7 g/dL6.4-8.2FDetwiler Memorial Hospitalodium [Moles/Vol]138 mmol/O082-303DicdvufdgMercy Health St. Rita'S Medical CenterTriglyceride [Mass/Vol]134 mg/dL<=150Mer[facility]'S Medical CenterUrea nitrogen [Mass/Vol]22.0 mg/dLHigh7.0-18.0[facility]'S Medical CenterUrea nitrogen/Creatinine [Mass ratio]15.3 mg/mgMercy Health St. Rita'S Medical Center Laboratory - Hematology and Cell countson 81-50-2128DjY6o (Bld) [Mass fraction] 5.9 %4.5-6.2FSelect Medical Cleveland Clinic Rehabilitation Hospital, AvonComment on above:ADA RECOMMENDED LIMIT 4.0 - 6.0ADA THERAPEUTIC TARGET < 7.0ACTION SUGGESTED> 7.0Immature granulocytes/100 WBC (Bld)0.5 %0.0-0.5FSelect Medical Cleveland Clinic Rehabilitation Hospital, [place]on Leukocytes [#/volume] corrected for nucleated erythrocytes in Blood by Automated counon 40-90-9386NLT corrected for nucl RBC Auto (Bld) [#/Vol]Leukocytes [#/volume] corrected for nucleated erythrocytes in Blood by Automated coun 4.0-11.0[facility]'S Medical CenterLymphocytes Auto (Bld) [#/Vol]on 59-30-2962Hofhakidhck (Bld) [#/Vol]Lymphocytes [#/volume] in Blood by Automated count1.2-3.8[facility] Medical CenterLymphocytes/100 WBC Auto (Bld)on 41-77-8481Vkmzynincua/100 WBC (Bld)Lymphocytes/100 leukocytes in Blood by Automated count20.5-60.0Grant HospitalH Auto (RBC) [Entitic mass]on 63-61-3229GMN (RBC) [Entitic mass]MCH [Entitic mass] by Automated count 25.9-34.0[facility]'S Medical CenterMCHC Auto (RBC) [Mass/Vol]on 46-89-8390XZTE (RBC) [Mass/Vol]MCHC [Mass/volume] by Automated count29.9-35.[address] [facility] Medical CenterMCV Auto (RBC) [Entitic vol]on 93-61-9829ZTU (RBC) [Entitic vol]MCV [Entitic volume] by Automated count80.0-94.0[facility] CenterMicroalbumin [Mass/volume] in Urineon 84-46-0334Lfwdwik DL <= 20 mg/L (U) [Mass/Vol]Microalbumin [Mass/volume] in Urine<=30.0[facility] Medical CenterMonocytes Auto (Bld) [#/Vol]on 51-42-8344Lvcqwbzst (Bld) [#/Vol]Automated blood monocyte countHigh0.3-0.8[facility] Medical CenterMonocytes/100 WBC Auto (Bld)on 54-30-9386Rtpcqlbgx/100 WBC (Bld)Automated monocyte %High1.7-12.0[facility] Medical CenterNeutrophils Auto (Bld) [#/Vol]on 47-60-0366Ikkxllbnxie (Bld) [#/Vol]Neutrophils [#/volume] in Blood by Automated count1.4-6.5FSelect Medical Cleveland Clinic Rehabilitation Hospital, AvonNeutrophils/100 WBC Auto (Bld)on 77-98-7543Myiuakvhiav/100 WBC (Bld)Automated neutrophil %43.0-75.[address] [facility] Medical CenterNo Panel Informationon 95-83-1967Juaiqixwfrg # (Auto)0.2 10 3/uL0.0-0.7FSelect Medical Cleveland Clinic Rehabilitation Hospital, AvonImmature Granulocyte # (Auto)0.04 10 3/uLHigh0.00-0.03[facility] Medical CenterUrine Random Cguuxnnyug823.28 mg/dL20.00-300.00[facility] Medical CenterPlatelet mean volume Auto (Bld) [Entitic vol]on 11-42-5813Dkpswyau mean volume (Bld) [Entitic vol]Platelet mean volume [Entitic volume] in Blood by Automated countLow 9.5-13.5FSelect Medical Cleveland Clinic Rehabilitation Hospital, AvonPlatelets Auto (Bld) [#/Vol]on 28-93-6626Ajdqvhdzs (Bld) [#/Vol]Platelets [#/volume] in Blood by Automated kghai596-790FfyzulgamMercy Health St. Rita'S Medical CenterRBC Auto (Bld) [#/Vol]on 12-30-2023 RBC (Bld) [#/Vol]Erythrocytes [#/volume] in Blood by Automated countLow4.70-6.10 [facility] CenterSerum or plasma albumin/globulin mass ratioon 75-39-7655Paobtnq/Globulin [Mass ratio]Serum or plasma albumin/globulin mass ratioDiley Ridge Medical Centererum or plasma anion gap determinationon 01-91-6444Yekni gap [Moles/Vol]Serum or plasma anion gap determinationDiley Ridge Medical Centererum or plasma total cholesterol/high density lipoprotein (HDL) cholesterol mass zenobia 43-16-0023Bvhprzziscn.total/Cholesterol in HDL [Mass ratio]Serum or plasma total cholesterol/high density lipoprotein (HDL) cholesterol mass ratMercy Health St. Rita'S Medical CenterComment on above:3.3 - 4.4 LOW RISK4.4 - 7.1 AVERAGE RISK7.1 - 11.0 MODERATE RISK>11.0 HIGH RISKUrine microalbumin/creatinine mass ratioon 88-21-3540Ohykxxn/Creatinine DL <= 20 mg/L (U) [Mass ratio]Urine microalbumin/creatinine mass ratio0.0-29.9[facility]'S Medical CenterComment on above:NO MICROALBUMINURIA 0-29 MG/GCLINICAL MICROALBUMINURIA 30-300 MG/GMACROALBUMINURIA >300 MG/GCHEMISTRYOrdered By: SYSTEM SYSTEM on 97-08-2113BHQ [Mass/Vol]0.2 mg/dLNormal<=1.9mg/dLRemisol Chem CRPon 87-13-1999EQQ [Mass/Vol]0.2 mg/dLNormal<=1.9[facility] Comment on above:Performed By: #### [id number] #### [facility] [address] [place], [place] [address]VTTL PLATELET COUNTon 48-96-8602Uawypnduc (Bld) [#/Vol]239.0 10*3/uLNOCO HealthcareOriginal Ordering Provider: DO Sterling Chandler NOMS HealthcareHEMATOLOGYOrdered By: Nat Aldridge on 25-88-0255LAA (Bld) [Velocity]4 mm/hNormal0 - 19 mm/hrMERCY HOSPITAL [place] HemeAutoSSHEMATOLOGYOrdered By: SYSTEM SYSTEM on 00-56-7733Vsrhmqod115.0 E9/KJygvbs421.0 - 500.0 E9/LRemisol Heme Ophthalmic OCT panelon 46-07-3767OKIICenterpoint Medical Center Eye Images reviewed and comparison made to baseline, Images reviewed. To assess optic nerve function and for use in future follow-up. Reliability: good and adequate. Left Eye Images reviewed and comparison made to baseline, Images reviewed. To assess optic nerve function and for use in future follow-up. Reliability: good and adequate. 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[facility] CenterRadiology Study observation (narrative)[facility] Optical coherence tomography study reporton 77-24-3998FMTPGranville Medical CenterRadiology Study observation (narrative)[facility] DivisionPlatelet Counton 35-70-8661Gqzcijqc936.0 E9/AXghhaj567.0-500.0[facility] CenterComment on above:Performed By: #### [id number] #### [facility] [address] [place], [place] [address]Slk Rate Automatedon 51-92-0535ZIX (Bld) [Velocity]4 mm/hNormal 0-19[facility] CenterComment on above:Performed By: #### [id number] #### [facility] [address] [place], [place] [address]Ttmnjwf mean value [Mass/volume] in Blood Estimated from glycated hemoglobinon 47-67-8352Lmoejzl glucose Estimated from glycated hemoglobin (Bld) [Mass/Vol]137 mg/dLMercy Health St. Rita'S Medical CenterComment on above:eAG: (Estimated average glucose) is a calculated value from HgbA1c and is retail representative of the average blood glucose level in the last 2-3 month period. Laboratory - Hematology and Cell countson 88-81-2011RmJ8c (Bld) [Mass fraction] 6.4 %High4.3-5.6FSelect Medical Cleveland Clinic Rehabilitation Hospital, AvonComment on above:[place] [employer] guidelines indicate that patients with HgbA1c in the range 5.7-6.4% are at increased risk for development of diabetes, and intervention by lifestyle modification may be beneficial. HgbA1c greater or equal to 6.5% is considered diagnostic of diabetes.UrinalysisOrdered By: Leticia Milian on 13-04-7874Jpmzuytcvt complete panel (U)[facility] Medical CenterUrine culture routineOrdered By: Leticia Milian on 98-90-9656Qytftqlc identified Cx Nom (U)[facility] Medical CenterBasophils Auto (Bld) [#/Vol]on 07-22-2023 Basophils (Bld) [#/Vol]0.0 10 3/uL0.0-0.1FSelect Medical [facility], [place] Basophils/100 WBC Auto (Bld)on 90-84-9806Impicmoqn/100 WBC (Bld)0.5 %0.2-2.[address] [facility] Medical CenterEosinophils/100 WBC Auto (Bld)on 07-22-2023 Eosinophils/100 WBC (Bld)2.7 %0.9-7.0[facility] Erythrocyte distribution width Auto (RBC) [Ratio]on 70-44-2177Rrcabmaqkwx distribution width (RBC) [Ratio]12.2 %11.0-15.0[facility] Estimated glomerular filtration rate (GFR) non- Americanon 07-22-2023 GFR/1.73 sq M.predicted among non-blacks MDRD (S/P/Bld) [Vol rate/Area]49 mL/min/{1.73_m2}Low>=60[facility]S Medical CenterHematocrit Auto (Bld) [Volume fraction]on 01-45-9624Iripnwwert (Bld) [Volume fraction]37.8 %Low 42.0-54.0[facility] Medical CenterHemoglobin [Mass/volume] in Bloodon 74-25-8969Rzipftmdmr (Bld) [Mass/Vol]12.6 g/dLLow14.0-18.0[facility] CenterLaboratory - Chemistry and Chemistry - challengeon 07-22-2023 Calcium [Mass/Vol]9.0 mg/dL8.5-10.1FSelect Medical Cleveland Clinic Rehabilitation Hospital, AvonChloride [Moles/Vol]98 mmol/Y31-437VdmnockniMercy Health St. Rita'S Medical CenterCO2 [Moles/Vol]27.0 mmol/L21.0-32.0[facility] Medical CenterCreatinine [Mass/Vol]1.39 mg/dL High0.70-1.30[facility] Medical CenterGFR/1.73 sq M.predicted MDRD (S/P/Bld) [Vol rate/Area]59 mL/min/{1.73_m2}Low>=60[facility] Medical CenterGlucose [Mass/Vol]120 mg/rGHcpa40-607RomyfozckMercy Health St. [facility]'S [facility] Center Potassium [Moles/Vol]4.9 mmol/L3.5-5.1FDetwiler Memorial Hospitalodium [Moles/Vol]135 mmol/HNfa554-396TmzyghqoeMercy Health St. Rita'S Medical CenterUrea nitrogen [Mass/Vol]23.0 mg/dLHigh7.0-18.0[facility] Medical CenterUrea nitrogen/Creatinine [Mass ratio]16.5 mg/mgMercy Health St. [facility]'S Medical Center Laboratory - Hematology and Cell countson 92-53-8413Obuhteko granulocytes/100 WBC (Bld)0.5 %0.0-0.5FSelect Medical Cleveland Clinic Rehabilitation Hospital, AvonLeukocytes [#/volume] corrected for nucleated erythrocytes in Blood by Automated counon 29-05-6961WVR corrected for nucl RBC Auto (Bld) [#/Vol]8.1 10 3/uL4.0-11.0[facility] Medical CenterLymphocytes Auto (Bld) [#/Vol]on 33-10-9793Bxjqtrshgzw (Bld) [#/Vol]2.3 10 3/uL1.2-3.8[facility] Medical CenterLymphocytes/100 WBC Auto (Bld)on 07-12-0226Hbotufnfkeq/100 WBC (Bld)28.3 %20.5-60.0Grant HospitalH Auto (RBC) [Entitic mass]on 29-73-5693ODL (RBC) [Entitic mass]30.7 pg25.9-34.0[facility] Medical CenterMCHC Auto (RBC) [Mass/Vol]on 56-07-9865PFCL (RBC) [Mass/Vol]33.3 g/dL29.9-35.2FSelect Medical Cleveland Clinic Rehabilitation Hospital, AvonMCV Auto (RBC) [Entitic vol]on 09-48-1258MBO (RBC) [Entitic vol] 92.0 fL80.0-94.0[facility] CenterMonocytes Auto (Bld) [#/Vol]on 83-84-7234Zpjqkbnje (Bld) [#/Vol]1.1 10 3/uLHigh0.3-0.8[facility] CenterMonocytes/100 WBC Auto (Bld)on 97-27-8430Ikkrauhbi/100 WBC (Bld) 13.7 %High1.7-12.0[facility] Medical CenterNeutrophils Auto (Bld) [#/Vol]on 38-51-4202Cbazzzoroso (Bld) [#/Vol]4.4 10 3/uL1.4-6.5FSelect Medical Cleveland Clinic Rehabilitation Hospital, AvonNeutrophils/100 WBC Auto (Bld)on 07-22-2023 Neutrophils/100 WBC (Bld)54.3 %43.0-75.0[facility] CenterNo Panel Informationon 68-78-3345Ugiymrfdmkf # (Auto)0.2 10 3/uL0.0-0.7FSelect Medical Cleveland Clinic Rehabilitation Hospital, AvonImmature Granulocyte # (Auto)0.04 10 3/uLHigh0.00-0.[address] [facility]S Medical CenterPlatelet mean volume Auto (Bld) [Entitic vol]on 49-15-7931Fijinsbo mean volume (Bld) [Entitic vol]8.2 fLLow9.5-13.5FSelect Medical Cleveland Clinic Rehabilitation Hospital, AvonPlatelets Auto (Bld) [#/Vol]on 91-84-8609Wqifnmoqn (Bld) [#/Vol]268 10 3/kX105-058ObsbajpjvMercy Health St. Rita'S Medical CenterRBC Auto (Bld) [#/Vol] on 47-15-4077TKQ (Bld) [#/Vol]4.11 10 6/uLLow4.70-6.10[facility] Centererum or plasma anion gap determinationon 10-83-7975Qxlfb gap [Moles/Vol] 14.9 mmol/LFSelect Medical Cleveland Clinic Rehabilitation Hospital, AvonBasophils Auto (Bld) [#/Vol]on 74-33-2011Ymzaxjfav (Bld) [#/Vol]0.0 10 3/uL0.0-0.1FSelect Medical Cleveland Clinic Rehabilitation Hospital, AvonBasophils/100 WBC Auto (Bld)on 69-65-9930Vwoapzkaj/100 WBC (Bld)0.4 % 0.2-2.0[facility] CenterEosinophils/100 WBC Auto (Bld)on 18-84-6483Zcvqauyupyy/100 WBC (Bld)2.3 %0.9-7.0[facility] Erythrocyte distribution width Auto (RBC) [Ratio]on 99-77-9267Suhqqqjgaru distribution width (RBC) [Ratio]12.4 %11.0-15.0[facility] Estimated glomerular filtration rate (GFR) non- Americanon 07-06-2023 GFR/1.73 sq M.predicted among non-blacks MDRD (S/P/Bld) [Vol rate/Area]59 mL/min/{1.73_m2}Low>=60[facility] Medical CenterHematocrit Auto (Bld) [Volume fraction]on 66-43-0547Muhjmeuprg (Bld) [Volume fraction]37.5 %Low 42.0-54.0[facility] Medical CenterHemoglobin [Mass/volume] in Bloodon 86-55-4540Ejdqzjfrsd (Bld) [Mass/Vol]12.5 g/dLLow14.0-18.0[facility] CenterLaboratory - Chemistry and Chemistry - challengeon 07-06-2023 Calcium [Mass/Vol]9.0 mg/dL8.5-10.1FSelect Medical Cleveland Clinic Rehabilitation Hospital, AvonChloride [Moles/Vol]98 mmol/V17-596TpyeinsvmMercy Health St. Rita'S Medical CenterCO2 [Moles/Vol]27.6 mmol/L21.0-32.0[facility] Medical CenterCreatinine [Mass/Vol]1.17 mg/dL 0.70-1.30[facility] Medical CenterGFR/1.73 sq M.predicted MDRD (S/P/Bld) [Vol rate/Area]mL/min/{1.73_m2}>=60[facility] Medical CenterGlucose [Mass/Vol]109 mg/fAKdub20-304GkpoldusaMercy Health St. Rita'S Medical CenterPotassium [Moles/Vol]5.1 mmol/L3.5-5.1FDetwiler Memorial Hospitalodium [Moles/Vol] 134 mmol/YVsi197-116QogjvypbpMercy Health St. Rita'S Medical CenterUrea nitrogen [Mass/Vol] 23.0 mg/dLHigh7.0-18.0[facility] CenterUrea nitrogen/Creatinine [Mass ratio]19.7 mg/mgMercy Health St. Rita'S Medical CenterLaboratory - Hematology and Cell countson 48-23-1883Yzublasv granulocytes/100 WBC (Bld)0.4 %0.0-0.[address] [facility] Medical CenterLeukocytes [#/volume] corrected for nucleated erythrocytes in Blood by Automated counon 90-89-7062EZM corrected for nucl RBC Auto (Bld) [#/Vol]8.0 10 3/uL4.0-11.0[facility] Lymphocytes Auto (Bld) [#/Vol]on 04-33-7872Aogcpqnqpam (Bld) [#/Vol]1.8 10 3/uL 1.2-3.8[facility] Medical CenterLymphocytes/100 WBC Auto (Bld)on 69-10-1417Qkulmnrptaf/100 WBC (Bld)22.3 %20.5-60.0[facility] Medical CenterMCH Auto (RBC) [Entitic mass]on 37-74-1690UZO (RBC) [Entitic mass]30.7 pg 25.9-34.0[facility] Medical CenterMCHC Auto (RBC) [Mass/Vol]on 45-82-5060CQTK (RBC) [Mass/Vol]33.3 g/dL29.9-35.2FSelect Medical Cleveland Clinic Rehabilitation Hospital, AvonMCV Auto (RBC) [Entitic vol]on 95-16-7978HXO (RBC) [Entitic vol]92.1 fL 80.0-94.0[facility] Medical CenterMonocytes Auto (Bld) [#/Vol]on 46-49-8848Gsxaxzyaj (Bld) [#/Vol]1.2 10 3/uLHigh0.3-0.8[facility] CenterMonocytes/100 WBC Auto (Bld)on 21-13-2778Qrzzzxgpw/100 WBC (Bld) 15.0 %High1.7-12.0[facility] Medical CenterNeutrophils Auto (Bld) [#/Vol]on 49-65-1657Urtslvfyshx (Bld) [#/Vol]4.8 10 3/uL1.4-6.5FSelect Medical Cleveland Clinic Rehabilitation Hospital, AvonNeutrophils/100 WBC Auto (Bld)on 07-06-2023 Neutrophils/100 WBC (Bld)59.6 %43.0-75.0[facility] CenterNo Panel Informationon 17-51-7658Hqyebizensu # (Auto)0.2 10 3/uL0.0-0.7FSelect Medical Cleveland Clinic Rehabilitation Hospital, AvonImmature Granulocyte # (Auto)0.03 10 3/uL0.00-0.[address] [facility]S Medical CenterPlatelet mean volume Auto (Bld) [Entitic vol]on 53-82-4914Dycrgrsc mean volume (Bld) [Entitic vol]8.9 fLLow9.5-13.5FSelect Medical Cleveland Clinic Rehabilitation Hospital, AvonPlatelets Auto (Bld) [#/Vol]on 95-85-4985Spzmdvxjq (Bld) [#/Vol]242 10 3/yS949-823YujotkcixMercy Health St. Rita'S Medical CenterRBC Auto (Bld) [#/Vol] on 87-01-7082KWW (Bld) [#/Vol]4.07 10 6/uLLow4.70-6.10[facility] Centererum or plasma anion gap determinationon 79-02-3381Dfdfy gap [Moles/Vol] 13.5 mmol/LFSelect Medical Cleveland Clinic Rehabilitation Hospital, AvonEstimated glomerular filtration rate (GFR) non- Americanon 37-00-7934JJZ/1.73 sq M.predicted among non-blacks MDRD (S/P/Bld) [Vol rate/Area]mL/min/{1.73_m2}>=60[facility] CenterLaboratory - Chemistry and Chemistry - challengeon 42-80-1608Cyaemte [Mass/Vol]8.5 mg/dL8.5-10.1FSelect Medical Cleveland Clinic Rehabilitation Hospital, AvonChloride [Moles/Vol] 100 mmol/E91-033SihxozxkrMercy Health St. Rita'S Medical CenterCO2 [Moles/Vol]27.6 mmol/L 21.0-32.0[facility] Medical CenterCreatinine [Mass/Vol]1.06 mg/dL 0.70-1.30[facility] Medical CenterGFR/1.73 sq M.predicted MDRD (S/P/Bld) [Vol rate/Area]mL/min/{1.73_m2}>=60[facility] Medical CenterGlucose [Mass/Vol]135 mg/pM85-580IwlwuxfwaMercy Health St. Rita'S Medical CenterPotassium [Moles/Vol] 4.1 mmol/L3.5-5.1FDetwiler Memorial Hospitalodium [Moles/Vol]136 mmol/L 136-145Mer[facility]'S Medical CenterUrea nitrogen [Mass/Vol]19.0 mg/dL 7.0-18.0[facility] Medical CenterUrea nitrogen/Creatinine [Mass ratio] 17.9 mg/mgMercy Health St. Rita'S Medical CenterNo Panel Informationon 44-04-6451V- Reactive Protein, Quantitative<0.50 mg/dL<=0.50[facility] Serum or plasma anion gap determinationon 79-32-5498Atiqv gap [Moles/Vol]12.5 mmol/LFSelect Medical Cleveland Clinic Rehabilitation Hospital, AvonEstimated glomerular filtration rate (GFR) non- Americanon 46-43-7907TZM/1.73 sq M.predicted among non-blacks MDRD (S/P/Bld) [Vol rate/Area]mL/min/{1.73_m2}>=60[facility] CenterLaboratory - Chemistry and Chemistry - challengeon 02-03-8541Xzzcair [Mass/Vol]8.7 mg/dL8.5-10.1FSelect Medical Cleveland Clinic Rehabilitation Hospital, AvonChloride [Moles/Vol] 101 mmol/A73-254BckjghjqwMercy Health St. Rita'S Medical CenterCO2 [Moles/Vol]29.2 mmol/L 21.0-32.0[facility] Medical CenterCreatinine [Mass/Vol]1.06 mg/dL 0.70-1.30[facility] CenterGFR/1.73 sq M.predicted MDRD (S/P/Bld) [Vol rate/Area]mL/min/{1.73_m2}>=60[facility] Medical CenterGlucose [Mass/Vol]93 mg/vJ70-193LxptvsopqMercy Health St. Rita'S Medical CenterPotassium [Moles/Vol] 4.6 mmol/L3.5-5.1FDetwiler Memorial Hospitalodium [Moles/Vol]136 mmol/L 136-145[facility]'S Medical CenterUrea nitrogen [Mass/Vol]20.0 mg/dL 7.0-18.0[facility] Medical CenterUrea nitrogen/Creatinine [Mass ratio] 18.9 mg/mgMercy Health St. Rita'S Medical CenterNo Panel Informationon 28-27-4663T- Reactive Protein, Quantitative0.50 mg/dL<=0.50[facility] Vancomycin Level Ocicur03.0 ug/mL5.0-20.0[facility] Centererum or plasma anion gap determinationon 64-36-9399Vohlx gap [Moles/Vol]10.4 mmol/L [facility] Medical CenterGLYCOHEMOGLOBIN A1Con 21-04-9590AQH RECOMMENDATIONSEE McCullough-Hyde Memorial HospitalComment on above:Result Comment: ADA RECOMMENDED LIMIT 4.0 - 6.0 ADA THERAPEUTIC TARGET < 7.0 ACTION SUGGESTED > 7.0Performed By: #### A1C #### [facility] [address] [address] [address] Juan Pablo KaminskiGlucose [Mass/Vol]128 mg/dLMount St. Mary HospitalComment on above:Performed By: #### A1C #### [facility] [address] [address] [address] Juan Pablo KaminskiHbA1c (Bld) [Mass fraction]6.1 %Normal4.5-6.2[facility]ost[facility] Community HospitalComment on above:Performed By: #### A1C #### [facility] [address] [address] [address] Juan Pablo KaminskiA1C with Estimated Average Gluon 55-63-3287Y9R with Estimated Average Jjx337Vrhgu Check I'm Here Other A1C with Estimated Average GluNRedPrairie Holding Other HbA1c (Bld) [Mass fraction]6.1 %Normal4.5-6.2Nmercy [facility] Check I'm Here Other Comment on above:Performed By: #### A1C #### [facility] [address] [address] [address] Juan Pablo KaminskiGLYCOHEMOGLOBIN A1Con 75-72-2203TOF RECOMMENDATIONSEE BELOWNormal The Cherrington HospitalComment on above:Result Comment: ADA RECOMMENDED LIMIT 4.0 - 6.0 ADA THERAPEUTIC TARGET < 7.0 ACTION SUGGESTED > 7.0Performed By: #### A1C #### [facility] [address] [address] [address] Juan Pablo KaminskiGlucose [Mass/Vol]128 mg/dLNormProtestant Deaconess HospitalComment on above:Performed By: #### A1C #### [facility] [address] [address] [address] Juan Pablo KaminskiUS SCROTUM W VASCULAR ORGANon 31-01-2811PZ SCROTUM W VASCULAR ORGANINDICATION: Pain in testicle [...] Electronically authenticated by: LEIDY PEREIRA Date: 2021-12-25 18:32[facility] Mary HospitalUrine culture routineOrdered By: Sam Simons on 12-19-2021 Bacteria identified Cx Nom (U)Pseudomonas aeruginosaMercy Health St. Rita'S Medical CenterAutomated erythrocytes count in urine sediment (number/area)Ordered By: Sam Simons on 45-42-8743JAH Auto (Urine sed) [#/Area]1-2 [HPF]0-4FSelect Medical Cleveland Clinic Rehabilitation Hospital, AvonAutomated leukocytes count in urine sediment (number/area)Ordered By: Sam Simons on 40-85-4348QMB Auto (Urine sed) [#/Area]20-49 [HPF]0-4FSelect Medical Cleveland Clinic Rehabilitation Hospital, AvonBilirubin Test strip Ql (U)Ordered By: Sam Simons on 13-66-9993Dxhezfdwm Ql (U)NegativeNegative [facility] Medical CenterColor Auto (U)Ordered By: Sam Simons on 23-04-6203Txsns (U)YellowYellowMercy Health St. Rita'S Medical CenterKetones Auto test strip (U) [Mass/Vol]Ordered By: Sam Simons on 15-73-8497Vmorfiv (U) [Mass/Vol]NegativeNegativeMercy Health St. Rita'S Medical CenterLaboratory - UrinalysisOrdered By: Sam Simons on 30-18-7301Hkjjhgm casts LM Ql (Urine sed) 0-8 [LPF]0-8[facility]'S Medical CenterNitrite Test strip Ql (U)Ordered By: Sam Simons on 13-15-0770Clybika Ql (U)NegativeNegativeMercy Health St. Rita'S Medical CenterProtein Auto test strip (U) [Mass/Vol]Ordered By: Sam Simons on 99-63-9097Dprllpj (U) [Mass/Vol]NegativeNegCoshocton Regional Medical Centerpecific gravity Auto test strip (U) [Rel density]Ordered By: Sam Simons on 04-63-4743Krhfwvnz gravity (U) [Rel density]1.0161.001-1.030[facility] Medical Centerquamous epithelial cells detection in urine sediment by light microscopyOrdered By: Sam Simons on 45-32-3916Kgujxrvhip cells.squamous LM Ql (Urine sed)0-1 [HPF]0-2FSelect Medical Cleveland Clinic Rehabilitation Hospital, AvonUrine bacteria detection by automated methodOrdered By: Sam Simons on 12-70-1934Zfsizuqm Auto Ql (U)None seenNone SeenMercy Health St. Rita'S Medical CenterUrine clarity by refractometry automatedOrdered By: Sam Simons on 81-12-0402Zjizumv Refractometry automated (U)ClearClePaulding County HospitalUrine glucose measurement by automated test strip (mass/volume)Ordered By: Sam Simons on 68-97-3688Vgcwohp Auto test strip (U) [Mass/Vol]Normal mg/dLUc West Chester HospitalUrine hemoglobin detection by automated test stripOrdered By: Sam Simons on 87-35-3614Dwemzaohhb Auto test strip Ql (U) NegativeNegativeMercy Health St. Rita'S Medical CenterUrine leukocyte esterase detection by automated test stripOrdered By: Sam Simons on 12-17-2021 Leukocyte esterase Auto test strip Ql (U)4+NegativeMercy Health St. Rita'S Medical CenterUrobilinogen Auto test strip (U) [Mass/Vol]Ordered By: Sam Simons on 12-74-4185Nytqdtaruemq (U) [Mass/Vol]Normal mg/dLNoMercy Health West HospitalpH Auto test strip (U)Ordered By: Sam Simons on 03-97-9987gY (U)6.0 [pH]5.0-9.0[facility] Medical CenterUrine culture routineOrdered By: Davis Cervantes on 99-24-4956Vmqwcwtm identified Cx Nom (U)No Growth [address] [facility] Medical CenterAutomated erythrocytes count in urine sediment (number/area)Ordered By: Davis Cervantes on 96-90-8558EAG Auto (Urine sed) [#/Area] 20-49 [HPF]0-4FSelect Medical Cleveland Clinic Rehabilitation Hospital, AvonAutomated leukocytes count in urine sediment (number/area)Ordered By: Davis Cervantes on 37-53-0188IMP Auto (Urine sed) [#/Area]10-19 [HPF]0-4FSelect Medical Cleveland Clinic Rehabilitation Hospital, AvonBasophils Auto (Bld) [#/Vol]Ordered By: Davis Cervantes on 54-11-2185Cxuqhwhue (Bld) [#/Vol]0.1 10*3/uL 0.0-0.2FSelect Medical Cleveland Clinic Rehabilitation Hospital, AvonBasophils/100 WBC Auto (Bld)Ordered By: Davis Cervantes on 20-23-4626Ivhqsirnv/100 WBC (Bld)1.[address] [facility] Medical CenterBilirubin Test strip Ql (U)Ordered By: Davis Cervantes on 48-22-5296Rlcljnjot Ql (U)NegativeNegativeMercy Health St. Rita'S Medical CenterBlood hemoglobin measurement (mass/volume)Ordered By: Davis Cervantes on 65-14-2376Iggmzrpiwh (Bld) [Mass/Vol]13.3 g/dL13.0-17.0[facility] Medical CenterBlood leukocytes automated count (number/volume)Ordered By: Davis Cervantes on 18-02-0313FST (Bld) [#/Vol]8.2 10*3/uL4.5-11.0[facility] Medical CenterColor Auto (U)Ordered By: Davis Cervantes on 42-55-0695Lukpo (U)YellowYellowMercy Health St. Rita'S Medical CenterCreatinine and Glomerular filtration rate.predicted panel (S/P/Bld)Ordered By: Davis Cervantes on 88-54-1663Noxqszhbxo [Mass/Vol]1.16 mg/dL0.64-1.27[facility] Medical CenterEosinophils Auto (Bld) [#/Vol]Ordered By: Davis Cervantes on 43-20-1502Qqgljxphzea (Bld) [#/Vol]0.2 10*3/uL0.0-0.45[facility] CenterEosinophils/100 WBC Auto (Bld)Ordered By: Davis Cervantes on 12-11-2021 Eosinophils/100 WBC (Bld)2.9 %.[facility] CenterErythrocyte distribution width Auto (RBC) [Ratio]Ordered By: Davis Cervantes on 12-11-2021 Erythrocyte distribution width (RBC) [Ratio]11.8 %12.0-14.8[facility] Medical CenterEstimated glomerular filtration rate (GFR) non- Ordered By: Davis Cervantes on [id number]/1.73 sq M.predicted among non-blacks MDRD (S/P/Bld) [Vol rate/Area]60 mL/MinMercy Health St. [facility] Hematocrit Auto (Bld) [Volume fraction]Ordered By: Davis Cervantes on 12-11-2021 Hematocrit (Bld) [Volume fraction]39.6 %38.8-50.0[facility] CenterKetones Auto test strip (U) [Mass/Vol]Ordered By: Davis Cervantes on 12-11-2021 Ketones (U) [Mass/Vol]NegativeNegativeMercy Health St. [facility] Laboratory - Hematology and Cell countsOrdered By: Davis Cervantes on 12-11-2021 Nucleated RBC/100 WBC (Bld) [Ratio]0.0 %0-0.5FSelect Medical [facility] Clinic [facility], [place] Laboratory - UrinalysisOrdered By: Davis Cervantes on 34-66-2462Afbsxuh casts LM Ql (Urine sed)0-8 [LPF]0-8[facility] Medical CenterLymphocytes Auto (Bld) [#/Vol]Ordered By: Davis Cervantes on 81-36-6386Njxtwtollrs (Bld) [#/Vol]1.9 10*3/uL 1.00-4.8[facility] Medical CenterLymphocytes/100 WBC Auto (Bld)Ordered By: Davis Cervantes on 56-60-7687Smeqioguhgh/100 WBC (Bld)23.[address] %.[facility] Medical CenterMCH Auto (RBC) [Entitic mass]Ordered By: Davis Cervantes on 12-11-2021 MCH (RBC) [Entitic mass]32.0 pg27.5-35.2FSelect Medical Cleveland Clinic Rehabilitation Hospital, AvonMCHC Auto (RBC) [Mass/Vol]Ordered By: Davis Cervantes on 38-28-1194SSZK (RBC) [Mass/Vol] 33.6 g/dL32.5-35.6FSelect Medical Cleveland Clinic Rehabilitation Hospital, AvonMCV Auto (RBC) [Entitic vol] Ordered By: Davis Cervantes on 64-33-0372BJC (RBC) [Entitic vol]95.1 fL83.5-[address] [facility]S Medical CenterMonocytes Auto (Bld) [#/Vol]Ordered By: Davis Cervantes on 09-88-2154Pcncfaeku (Bld) [#/Vol]1.1 10*3/uL0.0-0.8[facility] Medical CenterMonocytes/100 WBC Auto (Bld)Ordered By: Davis Cervantes on 12-11-2021 Monocytes/100 WBC (Bld)13.6 %.[facility] Medical CenterNeutrophils Auto (Bld) [#/Vol]Ordered By: Davis Cervantes on 27-27-3722Vebqrwbybyh (Bld) [#/Vol]4.8 10*3/uL1.8-7.7FSelect Medical Cleveland Clinic Rehabilitation Hospital, AvonNeutrophils/100 WBC Auto (Bld) Ordered By: Davis Cervantes on 60-90-2384Mkliuxriunx/100 WBC (Bld)59.[address] [address]'S Medical CenterNitrite Test strip Ql (U)Ordered By: Davis Cervantes on 92-34-4366Dctnqkl Ql (U)NegativeNegativeMercy Health St. Rita'S Medical CenterNo Panel InformationOrdered By: Davis Cervantes on 03-88-6882Ulfozqdwc GFR ()> 60 mL/MinMercy Health St. Rita'S Medical CenterComment on above:GFR estimated reference range: According to KDOQI guidelines, <60 ml/min/1.73m2 is sufficient todiagnose a patient with chronic kidney disease.Pharmacy Creatinine Clearance (Chem57.67[facility]'S Medical CenterPlatelet mean volume Auto (Bld) [Entitic vol]Ordered By: Davis Cervantes on 18-68-8332Xsbyzmzx mean volume (Bld) [Entitic vol]7.0 fL6.6-10.1FSelect Medical Cleveland Clinic Rehabilitation Hospital, AvonPlatelets Auto (Bld) [#/Vol]Ordered By: Davis Cervantes on 13-16-5501Egzriuoyx (Bld) [#/Vol]266 10*3/dF304-606XcnbvwiwlMercy Health St. Rita'S Medical CenterProtein Auto test strip (U) [Mass/Vol]Ordered By: Davis Cervantes on 98-77-4204Zeudpdo (U) [Mass/Vol]Negative NegativeMercy Health St. Rita'S Medical CenterRBC Auto (Bld) [#/Vol]Ordered By: Davis Cervantes on 07-03-0748XEI (Bld) [#/Vol]4.17 10*6/uL3.90-5.60[facility] Centererum or plasma anion gap determinationOrdered By: Davis Cervantes on 42-81-8552Crmxa gap [Moles/Vol]12.2 mmol/L6.0-15.0[facility] Centererum or plasma calcium measurement (mass/volume)Ordered By: Davis Cervantes on 20-29-3313Omkjrup [Mass/Vol]9.0 mg/dL8.2-10.2FSelect Medical [facility], [place] Serum or plasma chloride measurement (moles/volume)Ordered By: Davis Cervantes on 81-34-6363Funlaphm [Moles/Vol]96 mmol/K60-598XrwxpkjhdMercy Health St. Rita'S Medical Center Serum or plasma glucose measurement (mass/volume)Ordered By: Davis Cervantes on 85-61-6685Gfolqnt [Mass/Vol]131 mg/fD14-482OikysexnjMercy Health St. Rita'S Medical Center Comment on above:ADA recommended reference rangeRandom Glucose Reference Range is dependent on time and content of last meal. Glucose of more than 200 mg/dL in a nonstressed, ambulatory subject supports the diagnosisof Diabetes Mellitus. Serum or plasma potassium measurement (moles/volume)Ordered By: Davis Cervantes on 85-06-5813Bmxgzprza [Moles/Vol]4.5 mmol/L3.5-5.1FDetwiler Memorial Hospitalerum or plasma sodium measurement (moles/volume)Ordered By: Davis Cervantes on 53-24-5622Txaxrr [Moles/Vol]131 mmol/G712-211YoixqopuyMercy Health St. Rita'S Medical Center Serum or plasma total carbon dioxide measurement (moles/volume)Ordered By: Davis Cervantes on 85-17-1349PW5 [Moles/Vol]27.3 mmol/L22.0-30.0[facility] Centererum or plasma urea nitrogen measurement (mass/volume)Ordered By: Davis Cervantes on 76-63-4923Lwhb nitrogen [Mass/Vol]20 mg/dL9-23[facility] Medical Centerpecific gravity Auto test strip (U) [Rel density]Ordered By: Davis Cervantes on 55-33-7132Nbstzhce gravity (U) [Rel density]1.0141.001-1.030[facility] Medical Centerquamous epithelial cells detection in urine sediment by light microscopyOrdered By: Davis Cervantes on 20-95-7610Mtwbrhmuop cells.squamous LM Ql (Urine sed)0-1 [HPF]0-2FSelect Medical Cleveland Clinic Rehabilitation Hospital, AvonUrine bacteria detection by automated methodOrdered By: Davis Cervantes on 76-14-8909Mmtqruls Auto Ql (U)None seenNone SeenMercy Health St. Rita'S Medical CenterUrine clarity by refractometry automatedOrdered By: Davis Cervantes on 37-16-9586Palblzw Refractometry automated (U)ClearClearFSelect Medical Cleveland Clinic Rehabilitation Hospital, AvonUrine glucose measurement by automated test strip (mass/volume)Ordered By: Davis Cervantes on 61-31-5339Kmgzucq Auto test strip (U) [Mass/Vol]Normal mg/dLMedina HospitalUrine hemoglobin detection by automated test stripOrdered By: Davis Cervantes on 01-60-9114Xivflsvbts Auto test strip Ql (U)2+Negative [facility]S Medical CenterUrine leukocyte esterase detection by automated test stripOrdered By: Davis Cervantes on 26-60-8409Ohkyhkanv esterase Auto test strip Ql (U)2+NegativeMercy Health St. Rita'S Medical CenterUrobilinogen Auto test strip (U) [Mass/Vol]Ordered By: Davis Cervantes on 98-49-5956Lpvyzxphadnw (U) [Mass/Vol]Normal mg/dLNoMercy Health West HospitalpH Auto test strip (U)Ordered By: Davis Cervantes on 09-86-6828zC (U)5.5 [pH]5.0-9.0[facility] NOTEon 20-73-2429YD NOTEHNO ID: [id number] Author: Alyx Vergara RN Service: Nursing Author Type: Registered Nurse Type: ED Notes Filed: 11/26/2021 10:21 PM Note Text: Discharge instructions and follow up appointments reviewed. Pt verbalized understanding and states no concerns or questions at this time. VSS. Spoke with Asha about elevated BP. Stated that it's okay for pt to go and have him f/u with his PCP.NormalAvon HospitalED NOTEHNO ID: [id number] Author: Alyx Vergara RN Service: Nursing Author Type: Registered Nurse Type: ED Notes Filed: 11/26/2021 10:10 PM Note Text: Replaced smith bag with leg bag.NormalAvon HospitalBacteria Ur Culton 11-26-2021 Bacteria identified Cx Nom (U)4775894ZhpbpkciFszb HospitalComment on above:Order Comment: Specimen Type: URINE SPECIMEN [facility] Address: [address] [place], [place] [address]Result Comment: >=100,000 CFU/ml Klebsiella oxytocaPerformed By: #### 630-4, 69305-2 #### [facility] CLIA [id number] [address] [place] [address] [place] AMERICABacterial susceptibility panel (Isol)on 20-59-7136Emrhbzyshz [Susc]ResistantAvon HospitalComment on above:Order Comment: [facility] Address: [address] [place], [place] [address]Performed By: #### 630-4, 20595-1 #### [facility] CLIA [id number] [address] [place] [address] [place] AMERICAAmpicillin+Sulbactam [Susc]4 SusceptibleSusceptible <=8 , Intermediate >8 , Resistant >16[place] HospitalComment on above:Order Comment: [facility] Address: [address] [place], [place] [address]Performed By: #### 630-4, 17729-0 #### [facility] CLIA [id number] [address] [place] [address] [place] AMERICAceFAZolin [Susc]<=4 SusceptibleSusceptible 0-16 , Intermediate <0 or >16 , Resistant >16[place] HospitalComment on above:Order Comment: [facility] Address: [address] [place], [place] [address]Performed By: #### 630-4, 67704-8 #### [facility] CLIA [id number] [address] [place] [address] [place] AMERICACefepime [Susc]<=1 SusceptibleSusceptible <=2 , Intermediate >2 , Resistant >=16[facility] Comment on above:Order Comment: [facility] Address: [address] [place], [place] [address]Performed By: #### 630-4, 28755-9 #### [facility] CLIA [id number] [address] [place] [address] [place] AMERICAcefTRIAXone [Susc]<=1 SusceptibleSusceptible <=1 , Intermediate >1 , Resistant >=4[facility] HospitalComment on above:Order Comment: [facility] Address: [address] [place], [place] [address]Performed By: #### 630-4, 45265-5 #### [facility] CLIA [id number] [address] [place] [address] [place] AMERICACiprofloxacin [Susc]<=0.25 SusceptibleSusceptible <0.5 , Intermediate >=.5 , Resistant >=1[facility] Comment on above:Order Comment: [facility] Address: [address] [place], [place] [address]Performed By: #### 630-4, 45448-0 #### [facility] CLIA [id number] [address] [place] [address] [place] AMERICAErtapenem ROICO [Susc]<=0.5 SusceptibleSusceptible <=0.5 , Intermediate >.5 , Resistant >1[facility] Comment on above:Order Comment: [facility] Address: [address] [place], [place] [address]Performed By: #### 630-4, 57219-6 #### [facility] CLIA [id number] [address] [place] [address] [place] AMERICAGentamicin [Susc]<=1 SusceptibleSusceptible <=4 , Intermediate >4 , Resistant >8[facility] HospitalComment on above:Order Comment: [facility] Address: [address] [place], [place] [address]Performed By: #### 630-4, 04502-3 #### [facility] CLIA [id number] [address] [place] [address] [place] AMERICAMeropenem [Susc]<=0.25 SusceptibleSusceptible <=1 , Intermediate >1 , Resistant >2Avon HospitalComment on above:Order Comment: [facility] Address: [address] [place], [place] [address]Performed By: #### 630-4, 81466-3 #### [facility] CLIA [id number] [address] [place] [address] [place] AMERICANitrofurantoin [Susc]32 SusceptibleSusceptible <=32 , Intermediate >32 , Resistant >64[facility] Comment on above:Order Comment: [facility] Address: [address] [place], [place] [address]Performed By: #### 630-4, 80095-7 #### [facility] CLIA [id number] [address] [place] [address] [place] AMERICAPiperacillin+Sulbactam ROCIO [Susc]<=4SusceptibleSusceptible <=16 , Intermediate >16 , Resistant >64[facility] HospitalComment on above:Order Comment: [facility] Address: [address] [place], [place] [address]Performed By: #### 630-4, 91548-2 #### [facility] CLIA [id number] [address] [place] [address] [place] AMERICATobramycin [Susc]<=1 SusceptibleSusceptible <=4 , Intermediate >4 , Resistant >8[facility]on HospitalComment on above:Order Comment: [facility] Address: [address] [place], [place] [address]Performed By: #### 630-4, 62473-2 #### [facility] CLIA [id number] [address] [place] [address] [place] Trimethoprim+Sulfamethoxazole [Susc]<=20SusceptibleSusceptible <=40 , Resistant >40Avon HospitalComment on above:Order Comment: [facility] Address: [address] [place], [place] [address]Performed By: #### 630-4, 56476-8 #### [facility] CLIA [id number] [address] [place] [address] OF AMERICAED NOTEon 73-71-5942RI NOTE HNO ID: [id number] Author: Alyx Vergara RN Service: Nursing Author Type: Registered Nurse Type: ED Notes Filed: 11/26/2021 9:20 PM Note Text: Replaced smith per Asha BARR.[facility] NOTEHNO ID: [id number] Author: Alyx Vergara RN Service: Nursing Author Type: Registered Nurse Type: ED Notes Filed: 11/26/2021 9:01 PM Note Text: Was instructed to bladder scan pt due to pt having no urine in replaced bag. Bladder scanned 261 mL's the first time. Then 214 mL's the second time. Made Asha ESQUIVEL) aware.[facility] NOTEHNO ID: [id number] Author: Alyx Vergara RN Service: Nursing Author Type: Registered Nurse Type: ED Notes Filed: 11/26/2021 9:49 PM Note Text: Flushed 20 mL Smith. No leaking noted around tube.[facility] ThomasED PROV NOTEon 47-44-4573RR PROV NOTEHNO ID: [id number] Author: Asha Clinton PA-C Service: ? Author Type: Physician Dolly Operator Type: ED Provider Notes Filed: 11/26/2021 [...] Previous and only urine culture in [facility] on 11/07 had no growth. Given dose of Keflex. Prescription for this E scripted to pharmacy. Patient discharged with Smith in place, leg bag instructions. Elevated blood pressure noted and improved during stay. No CP, sob, dizziness or any other complaints. Recommend f/u with pcp for recheck. All questions and concerns addre (more content not included)...NormalAvon HospitalUrinalysis complete panel (U)on 44-00-4538Djybobup LM.HPF (Urine sed) [#/Area]ManyKnickerbocker Hospital Comment on above:Order Comment: Specimen Type: URINE SPECIMEN [facility] Address: [address] [place] [address]Performed By: #### 630-4, 79847-1 #### [facility] CLIA [id number] [address] [place] [address] [place] AMERICABilirubin Ql (U)Negative NormalNegativeAvon HospitalComment on above:Order Comment: Specimen Type: URINE SPECIMEN [facility] Address: [address] [place], [place] [address]Performed By: #### 630-4, 10800-4 #### [facility] CLIA [id number] [address] [place] [address] [place] AMERICAClarity (Unsp spec)Cloudy AbnormalClearAvon HospitalComment on above:Order Comment: Specimen Type: URINE SPECIMEN [facility] Address: [address] [place], [place] [address]Performed By: #### 630-4, 01779-1 #### [facility] CLIA [id number] [address] [place] [address] [place] AMERICAColor (U)YellowNormalYellow Osprey HospitalComment on above:Order Comment: Specimen Type: URINE SPECIMEN [facility] Address: [address] [place] [address]Performed By: #### 630-4, 17821-3 #### [facility] CLIA [id number] [address] [place] [address] [place] AMERICAEpithelial cells LM.HPF (Urine sed) [#/Area]FewNormalAvon HospitalComment on above:Order Comment: Specimen Type: URINE SPECIMEN [facility] Address: [address] [place] [address]Performed By: #### 630-4, 14218-3 #### [facility] CLIA [id number] [address] [place] [address] [place] AMERICAGlucose Test strip (U) [Mass/Vol]NegativeNormalNegativeAvon HospitalComment on above:Order Comment: Specimen Type: URINE SPECIMEN [facility] Address: [address] [place], [place] [address]Performed By: #### 630-4, 95863-3 #### [facility] CLIA [id number] [address] [place] [address] [place] AMERICAHemoglobin Ql (U)2+Abnormal NegativeAvon HospitalComment on above:Order Comment: Specimen Type: URINE SPECIMEN [facility] Address: [address] [place], [place] [address]Performed By: #### 630-4, 87851-2 #### [facility] CLIA [id number] [address] [place] [address] [place] AMERICAKetones Ql (U)NegativeNormal NegativeAvon HospitalComment on above:Order Comment: Specimen Type: URINE SPECIMEN [facility] Address: [address] [place], [place] [address]Performed By: #### 630-4, 47945-9 #### [facility] CLIA [id number] [address] [place] [address] [place] AMERICALeukocyte esterase Test strip Ql (U)3+AbnormalNegativeAvon HospitalComment on above:Order Comment: Specimen Type: URINE SPECIMEN [facility] Address: [address] [place], [place] [address]Performed By: #### 630-4, 56178-0 #### [facility] CLIA [id number] [address] [place] [address] [place] AMERICANitrite Ql (U)Positive AbnormalNegativeAvon HospitalComment on above:Order Comment: Specimen Type: URINE SPECIMEN [facility] Address: [address] [place], [place] [address]Performed By: #### 630-4, 44263-8 #### [facility] CLIA [id number] [address] [place] [address] STATES AMERICApH (U)5.5 [pH]Normal5.0-8.0 [facility] HospitalComment on above:Order Comment: Specimen Type: URINE SPECIMEN [facility] Address: [address] [place], [place] [address]Performed By: #### 630-4, 62030-1 #### [facility] CLIA [id number] [address] [place] [address] STATES AMERICAProtein (U) [Mass/Vol]Normal [facility]sprey HospitalComment on above:Order Comment: Specimen Type: URINE SPECIMEN [facility] Address: [address] [place], [place] [address]Result Comment: Visible blood causes falsely elevated results for analyte Protein. Due to this limitation, Protein will not be reported for patients whose urine contains visible blood. Performed By: #### 630-4, 39292-8 #### [facility] CLIA [id number] [address] [place] [address] [place] UC HEALTHRB LM.HPF (Urine sed) [#/Area]6-10 /HPFAbnormal0-3 /HPFAv HospitalComment on above:Order Comment: Specimen Type: URINE SPECIMEN [facility] Address: [address] [place], [place] [address]Performed By: #### 630-4, 88080-0 #### [facility] CLIA [id number] [address] [place] [address] [place] AMERICASpecific gravity (U) [Rel density]1.546Ypqlrv0.005-1.030Av HospitalComment on above:Order Comment: Specimen Type: URINE SPECIMEN [facility] Address: [address] [place], [place] [address]Performed By: #### 630-4, 81485-5 #### [facility] [place] [id number] [address] [place] [address] [place] AMERICAUrobilinogen Ql (U)0.2 EU/dL Normal0.2-1.0 EU/dLAv HospitalComment on above:Order Comment: Specimen Type: URINE SPECIMEN [facility] Address: [address] [place], [place] [address]Performed By: #### 630-4, 51572-9 #### [facility] [place] [id number] [address] [place] [address] [place] AMERICAWBC LM.HPF (Urine sed) [#/Area]11-25 /HPFAbnormal0-5 /HPFAvon HospitalComment on above:Order Comment: Specimen Type: URINE SPECIMEN [facility] Address: [address] [place], [place] [address]Performed By: #### 630-4, 71774-0 #### [facility] IA [id number] [address] [place] [address] [place] AMERICACovid-19 PCR (CVDTB)on 54-55-3268OPRJ-CoV-2 (COVID-19) RNA LUANNE+probe Ql (Unsp spec)Not detectedNormal NOT DETECTEDThe Cherrington HospitalComment on above:Result Comment: This test is not yet approved or cleared by the [place] FDA. When there are no FDA- approved or cleared tests available, and other criteria are met, FDA can make tests available under an emergency access mechanism called an Emergency Use Authorization (EUA). The EUA for this test is supported by the [place] of Health and Human Service's (HHS's) declaration [...] consistent with SARS-CoV-2.Performed By: #### CVDTBH #### [facility] [address] [place] [address] Dr. Juan Pablo Duarte Ur Culton 29-33-6218Rmlbfxoy identified Cx Nom (U)No growth (<1,000 CFU/ml)NormalAvon HospitalComment on above:Order Comment: Specimen Type: URINE SPECIMEN [facility] Address: [address] [place], [place] [address]Performed By: #### 630-4 #### [facility] CLIA [id number] [address] [place] [address] [place] AMERICABasic metabolic 2000 panelon 96-06-1405Lavmu gap [Moles/Vol]10 mmol/LNormal9-18Avon HospitalComment on above:Order Comment: Specimen Type: URINE SPECIMEN [facility] Address: [address] [place], [place] [address]Performed By: #### 630-4, 40606-0 #### [facility] CLIA [id number] [address] [place] [address] [place] AMERICACalcium [Mass/Vol]9.1 mg/dL Normal8.5-10.2Avon HospitalComment on above:Order Comment: Specimen Type: URINE SPECIMEN [facility] Address: [address] [place], [place] [address]Performed By: #### 630-4, 96315-1 #### [facility] CLIA [id number] [address] [place] [address] [place] AMERICAChloride [Moles/Vol]95 mmol/KMus91-714Ospg HospitalComment on above:Order Comment: Specimen Type: URINE SPECIMEN [facility] Address: [address] [place], [place] [address]Performed By: #### 630-4, 47800-3 #### [facility] IA [id number] [address] [place] [address] [place] AMERICACO2 [Moles/Vol]25 mmol/L Kdpquh61-56Kuhw HospitalComment on above:Order Comment: Specimen Type: URINE SPECIMEN [facility] Address: [address] [place], [place] [address]Performed By: #### 630-4, 67366-4 #### [facility] CLIA [id number] [address] [place] [address] [place] AMERICACreatinine [Mass/Vol]1.25 mg/dLHigh0.73-1.22Avon HospitalComment on above:Order Comment: Specimen Type: URINE SPECIMEN [facility] Address: [address] [place], [place] [address]Performed By: #### 630-4, 60049-1 #### [facility] IA [id number] [address] [place] [address] [place] AMERICAESTIMATED GLOMERULAR FILTRATION RATE57 mL/min/1.73m???Low>=60Avon HospitalComment on above:Order Comment: Specimen Type: URINE SPECIMEN [facility] Address: [address] [place], [place] [address]Result Comment: Estimated Glomerular Filtration Rate (eGFR) is [...] accurately reflect actual GFR.Performed By: #### 630-4, 09935-9 #### [facility] CLIA [id number] [address] [place] [address] [place] AMERICAGlucose [Mass/Vol]129 mg/dL Uybh53-32Wgtv HospitalComment on above:Order Comment: Specimen Type: URINE SPECIMEN [facility] Address: [address] [place], [place] [address]Result Comment: The [place] [employer] (ADA) provides guidance for cutoff [...] Standards of Medical Care in Diabetes 2016, [place] [employer]. Diabetes Care. 2016.39(Suppl 1).Performed By: #### 630-4, 92942-8 #### [facility] CLIA [id number] [address] [place] [address] [place] AMERICAPotassium [Moles/Vol]4.6 mmol/LNormal3.7-5.1Avon HospitalComment on above:Order Comment: Specimen Type: URINE SPECIMEN [facility] Address: [address] [place] [address]Performed By: #### 630-4, 98599-7 #### [facility] CLIA [id number] [address] [place] [address] [place] AMERICASodium [Moles/Vol]130 mmol/L Zih850-215Srde HospitalComment on above:Order Comment: Specimen Type: URINE SPECIMEN [facility] Address: [address] [place] [address]Performed By: #### 630-4, 70763-0 #### [facility] CLIA [id number] [address] [place] [address] [place] OF AMERICAUrea nitrogen [Mass/Vol]23 mg/dLNormal9-24Avon HospitalComment on above:Order Comment: Specimen Type: URINE SPECIMEN [facility] Address: [address] [place], [place] [address]Performed By: #### 630-4, 12653-4 #### [facility] CLIA [id number] [address] [place] [address] OF AMERICACBC W Auto Differential panel (Bld)on 21-63-9819Clypimnse/100 WBC (Bld)0.0 %NormalAvon HospitalComment on above:Order Comment: Specimen Type: URINE SPECIMEN [facility] Address: [address] [place], [place] [address]Performed By: #### 630-4, 42765-4 #### [facility] CLIA [id number] [address] [place] [address] STATES OF AMERICADifferential cell count method Nom (Bld)ManualNormalAvon HospitalComment on above:Order Comment: Specimen Type: URINE SPECIMEN [facility] Address: [address] [place], [place] [address]Performed By: #### 630-4, 61772-4 #### [facility] CLIA [id number] [address] [place] [address] [place] OF AMERICAEosinophils (Bld) [#/Vol] 0.10 10*3/uLNormal<0.46Avon HospitalComment on above:Order Comment: Specimen Type: URINE SPECIMEN [facility] Address: [address] [place], [place] [address]Performed By: #### 630-4, 40535-2 #### [facility] CLIA [id number] [address] [place] [address] [place] OF AMERICAEosinophils/100 WBC (Bld)1.0 %NormalAvon HospitalComment on above:Order Comment: Specimen Type: URINE SPECIMEN [facility] Address: [address] [place], [place] [address]Performed By: #### 630-4, 37975-9 #### [facility] CLIA [id number] [address] [place] [address] [place] OF AMERICAErythrocyte distribution width (RBC) [Ratio]11.5 %Ddakds26.5-15.0Av HospitalComment on above:Order Comment: Specimen Type: URINE SPECIMEN [facility] Address: [address] [place], [place] [address]Performed By: #### 630-4, 08899-7 #### [facility] CLIA [id number] [address] [place] [address] [place] OF AMERICAHematocrit (Bld) [Volume fraction]39.8 %Ylnout05.0-51.0Av HospitalComment on above:Order Comment: Specimen Type: URINE SPECIMEN [facility] Address: [address] [place], [place] [address]Performed By: #### 630-4, 80692-2 #### [facility] CLIA [id number] [address] [place] [address] [place] OF AMERICAHemoglobin (Bld) [Mass/Vol] 13.4 g/zHMtvgra49.0-17.0Av HospitalComment on above:Order Comment: Specimen Type: URINE SPECIMEN [facility] Address: [address] [place], [place] [address]Performed By: #### 630-4, 22647-9 #### [facility] CLIA [id number] [address] [place] [address] [place] OF AMERICALymphocytes (Bld) [#/Vol] 1.67 10*3/uLNormal1.00-4.00Av HospitalComment on above:Order Comment: Specimen Type: URINE SPECIMEN [facility] Address: [address] [place], [place] [address]Performed By: #### 630-4, 87613-0 #### [facility] CLIA [id number] [address] [place], [place] [address]Lymphocytes/100 WBC (Bld) 17.0 %NormalAvon HospitalComment on above:Order Comment: Specimen Type: URINE SPECIMEN [facility] Address: [address] [place], [place] [address]Performed By: #### 630-4, 43597-3 #### [facility] CLIA [id number] [address] [place] [address] (RBC) [Entitic mass]31.5 yyPputpw79.0-34.0Avon HospitalComment on above:Order Comment: Specimen Type: URINE SPECIMEN [facility] Address: [address] [place], [place] [address]Performed By: #### 630-4, 90499-9 #### [facility] CLIA [id number] [address] [place] [address] (RBC) [Mass/Vol]33.7 g/rMSugltn82.5-36.0Avon HospitalComment on above:Order Comment: Specimen Type: URINE SPECIMEN [facility] Address: [address] [place] [address]Performed By: #### 630-4, 12618-0 #### [facility] CLIA [id number] [address] [place] [address] (RBC) [Entitic vol]93.4 tVYefjhq74.0-100.0Avon HospitalComment on above:Order Comment: Specimen Type: URINE SPECIMEN [facility] Address: [address] [place] [address]Performed By: #### 630-4, 96472-1 #### [facility] CLIA [id number] [address] [place] [address] [place] OF AMERICANeutrophils (Bld) [#/Vol] 6.29 10*3/uLNormal1.45-7.50Avon HospitalComment on above:Order Comment: Specimen Type: URINE SPECIMEN [facility] Address: [address] [place], [place] [address]Performed By: #### 630-4, 36803-1 #### [facility] CLIA [id number] [address] [place] [address] [place] OF AMERICANeutrophils/100 WBC (Bld) 64.0 %NormalAv HospitalComment on above:Order Comment: Specimen Type: URINE SPECIMEN [facility] Address: [address] [place], [place] [address]Performed By: #### 630-4, 38298-5 #### [facility] CLIA [id number] [address] [place] [address] [place] OF AMERICANucleated RBC/100 WBC (Bld) [Ratio]0.0 /100 WBCNormalAvon HospitalComment on above:Order Comment: Specimen Type: URINE SPECIMEN [facility] Address: [address] [place], [place] [address]Performed By: #### 630-4, 97624-7 #### [facility] CLIA [id number] [address] [place] [address] [place] OF AMERICAPLATELET ESTIMATEAdequate NormalAv HospitalComment on above:Order Comment: Specimen Type: URINE SPECIMEN [facility] Address: [address] [place] [address]Performed By: #### 630-4, 07235-6 #### [facility] CLIA [id number] [address] [place] [address] [place] AMERICAPlatelet mean volume (Bld) [Entitic vol]10.2 fLNormal9.0-12.7Avon HospitalComment on above:Order Comment: Specimen Type: URINE SPECIMEN [facility] Address: [address] [place] [phone] By: #### 630-4, 40267-6 #### [facility] CLIA [id number] [address] [place] [address] [place] AMERICAPlatelets (Bld) [#/Vol]258 10*3/gQQnniby562-183Tkos HospitalComment on above:Order Comment: Specimen Type: URINE SPECIMEN [facility] Address: [address] [place] [phone] By: #### 630-4, 96273-0 #### [facility] CLIA [id number] [address] [place] [address] [place] OF AMERICARBC (Bld) [#/Vol]4.26 10*6/uLNormal4.20-6.00Avon HospitalComment on above:Order Comment: Specimen Type: URINE SPECIMEN [facility] Address: [address] [place] [phone] By: #### 630-4, 71552-8 #### [facility] CLIA [id number] [address] [place] [address] [place] OF AMERICARED CELL MORPHReviewed: unremarkableNormalAvon HospitalComment on above:Order Comment: Specimen Type: URINE SPECIMEN [facility] Address: [address] [place] [phone] By: #### 630-4, 50356-2 #### [facility] CLIA [id number] [address] [place] [address] [place] AMERICAWAM - ABS BASO0.00 k/uL Normal<0.11Avon HospitalComment on above:Order Comment: Specimen Type: URINE SPECIMEN [facility] Address: [address] [place], [place] [address]Performed By: #### 630-4, 37674-4 #### [facility] CLIA [id number] [address] [place] [address] [place] OF UC HEALTHWAM - ABS MONO1.77 k/uLHigh <0.87Avon HospitalComment on above:Order Comment: Specimen Type: URINE SPECIMEN [facility] Address: [address] [place], [place] [address]Performed By: #### 630-4, 42250-4 #### [facility] CLIA [id number] [address] [place] [address] [place] OF AMERICAWAM - MONO%18.0 %NormalAvon HospitalComment on above:Order Comment: Specimen Type: URINE SPECIMEN [facility] Address: [address] [place], [place] [address]Performed By: #### 630-4, 46798-6 #### [facility] CLIA [id number] [address] [place] [address] [place] AMERICAWAM ABSOLUTE NRBC<0.01Normal <0.01Avon HospitalComment on above:Order Comment: Specimen Type: URINE SPECIMEN [facility] Address: [address] [place] [phone] By: #### 630-4, 53974-4 #### [facility] CLIA [id number] [address] [place] [address] [place] OF AMERICAWBC (Bld) [#/Vol]9.83 10*3/uLNormal3.70-11.00Avon HospitalComment on above:Order Comment: Specimen Type: URINE SPECIMEN [facility] Address: [address] [place], [place] [address]Performed By: #### 630-4, 17420-4 #### [facility] CLIA [id number] [address] [facility] [address] STATES OF AMERICAED NOTEon 87-75-1630BU NOTE HNO ID: [id number] Author: Yoshi Schumacher RN Service: ? Author Type: Registered Nurse Type: ED Notes Filed: 11/07/2021 5:14 PM Note Text: Pt provided with discharged instructions. Medications gone over and all questions answered. Pt. Left with steady gait with friend for a ride.[facility] NOTEHNO ID: [id number] Author: Flaquita Donnelly RN Service: ? Author Type: Registered Nurse Type: ED Notes Filed: 11/07/2021 1:24 PM Note Text: Pt to ED for urinary retention. Pt had appointment with Urology on Wednesday, but was not able to be seen. Pt denies pain, but reports pressure in the bladder. Pt states he is not able to urinate completely and reports dribbling.[facility] NOTEon 34-47-5572DU [facility] NOTEHNO ID: [id number] Author: Keely Sanchez DO Service: Emergency Medicine [...] this Wednesday with his urologist out of [place] but was notified that his urologist had [...] Abnormal; Notable for the following components: Abs Parke 1.77 (*) <0.87 k/uL All other components [...] cysts one of which is mildly complex. Senior Web Developer: LIANA Transcribe Date/Time: Nov 07 2021 2:57P [...] th (more content not included)...NormalAvon HospitalUS KIDNEY/BLADDERon 56-81-8113GB KIDNEY/BLADDER* * *Final Report* * * DATE [...] cysts one of which is mildly complex. Senior Web Developer: PSCAngella Transcribe Date/Time: Nov 07 2021 2:57P Dictated by : NEHEMIAS COLBERT MD This examination was interpreted and the report reviewed and electronically signed by: NEHEMIAS COLBERT MD on Nov 07 2021 3:09PM EST [id number] HospitalUrinalysis complete panel (U)on 98-51-7609Drlockgov Ql (U)NegativeNormalNegativeAvon HospitalComment on above: Order Comment: Specimen Type: URINE SPECIMEN [facility] Address: [address] [place], [place] [address]Performed By: #### 630-4, 64838-8 #### [facility] CLIA [id number] [address] [place] [address] [place] OF AMERICAClarity (Unsp spec)Clear NormalClearAvon HospitalComment on above:Order Comment: Specimen Type: URINE SPECIMEN [facility] Address: [address] [place], [place] [address]Performed By: #### 630-4, 62042-2 #### [facility] CLIA [id number] [address] [place] [address] [place] AMERICAColor (U)YellowNormalYellow Osprey HospitalComment on above:Order Comment: Specimen Type: URINE SPECIMEN [facility] Address: [address] [place], [place] [address]Performed By: #### 630-4, 54013-3 #### [facility] CLIA [id number] [address] [place] [address] [place] OF AMERICAEpithelial cells LM.HPF (Urine sed) [#/Area]FewNormalAvon HospitalComment on above:Order Comment: Specimen Type: URINE SPECIMEN [facility] Address: [address] [place], [place] [address]Performed By: #### 630-4, 05655-5 #### [facility] CLIA [id number] [address] [place] [address] [place] AMERICAGlucose Test strip (U) [Mass/Vol]NegativeNormalNegativeAvon HospitalComment on above:Order Comment: Specimen Type: URINE SPECIMEN [facility] Address: [address] [place], [place] [address]Performed By: #### 630-4, 24284-4 #### [facility] CLIA [id number] [address] [place] [address] [place] AMERICAHemoglobin Ql (U)Negative NormalNegativeAvon HospitalComment on above:Order Comment: Specimen Type: URINE SPECIMEN [facility] Address: [address] [place], [place] [address]Performed By: #### 630-4, 66534-4 #### [facility] CLIA [id number] [address] [place] [address] [place] OF AMERICAHyaline casts (Urine sed) [#/Area]1-3 /LPFAbnormal0 /LPFAvon HospitalComment on above:Order Comment: Specimen Type: URINE SPECIMEN [facility] Address: [address] [place], [place] [address]Performed By: #### 630-4, 70802-7 #### [facility] CLIA [id number] [address] [place] [address] [place] AMERICAKetones Ql (U)TraceAbnormal NegativeAvon HospitalComment on above:Order Comment: Specimen Type: URINE SPECIMEN [facility] Address: [address] [place], [place] [address]Performed By: #### 630-4, 40379-6 #### [facility] CLIA [id number] [address] [place], [place] [address]Leukocyte esterase Test strip Ql (U)NegativeNormalNegativeAvon HospitalComment on above:Order Comment: Specimen Type: URINE SPECIMEN [facility] Address: [address] [place], [place] [address]Performed By: #### 630-4, 22851-9 #### [facility] CLIA [id number] [address] [place] [address] STATES [facility]IAL HOSPITALitrite Ql (U)NegativeNormal NegativeAvon HospitalComment on above:Order Comment: Specimen Type: URINE SPECIMEN [facility] Address: [address] [place], [place] [address]Performed By: #### 630-4, 31031-5 #### [facility] CLIA [id number] [address] [place] [address] [place] AMERICApH (U)5.5 [pH]Normal5.0-8.0 Osprey HospitalComment on above:Order Comment: Specimen Type: URINE SPECIMEN [facility] Address: [address] [place], [place] [address]Performed By: #### 630-4, 91477-5 #### [facility] CLIA [id number] [address] [place] [address] [place] [facility] HOSPITALProtein (U) [Mass/Vol] NegativeNormalNegativeAvon HospitalComment on above:Order Comment: Specimen Type: URINE SPECIMEN [facility] Address: [address] [place], [place] [address]Performed By: #### 630-4, 04417-6 #### [facility] CLIA [id number] [address] [place] [address] [place] AMERICARB LM.HPF (Urine sed) [#/Area]0-3 /HPFNormal0-3 /HPFAvon HospitalComment on above:Order Comment: Specimen Type: URINE SPECIMEN [facility] Address: [address] [place], [place] [address]Performed By: #### 630-4, 69444-5 #### [facility] [place] [id number] [address] [place] [address] [place] AMERICASpecific gravity (U) [Rel density]1.516Bjxrhf6.005-1.030Avon HospitalComment on above:Order Comment: Specimen Type: URINE SPECIMEN [facility] Address: [address] [place], [place] [address]Performed By: #### 630-4, 14794-7 #### [facility] [place] [id number] [address] [place] [address] STATES OF UC HEALTHUrobilinogen Ql (U)0.2 EU/dL Normal0.2-1.0 EU/dLAvon HospitalComment on above:Order Comment: Specimen Type: URINE SPECIMEN [facility] Address: [address] [place], [place] [address]Performed By: #### 630-4, 86697-1 #### [facility] [place] [id number] [address] [place] [address] [place] AMERICAW LM.HPF (Urine sed) [#/Area]0-5 /HPFNormal0-5 /HPFAvon HospitalComment on above:Order Comment: Specimen Type: URINE SPECIMEN [facility] Address: [address] [place], [place] [address]Performed By: #### 630-4, 05573-5 #### [facility] [place] [id number] [address] [place] [address] [place] AMERICAMICROALBUMIN URINEon 95-08-7946Cebxkqk, Urine5.6 ug/mLNormalNot Estab.The Cherrington HospitalComment on above:Performed By: #### MALLIBRA #### [facility] [address] [place], [place] [address] Dr. Juan Pablo Dubois CAROTID ART BILon [id number] CAROTID ART BILEXAMINATION: [place] CAROTID ART SIMONE [...] authenticated by: SAMY TORRES Date: 2021-10-23 17:19NormalThe Cherrington HospitalCB AUTO DIFFon 84-67-1090SIRH #0.0 103/ulNormal0.0-0.1The Cherrington HospitalComment on above:Performed By: #### A1C #### [facility] [address] [place] [address] Dr. Juan Pablo Knappphils/100 WBC (Bld)0.5 %Normal0.2-2.0[facility] Comment on above:Performed By: #### A1C #### [facility] [address] [place] [address] [address] Almeida ChangEGemini #0.3 103/ulNormal0.0-0.7The Cherrington HospitalComment on above: Performed By: #### A1C #### [facility] [address] [place] [address] [address] Juan Pablo Cruzosinophils/100 WBC (Bld)3.6 %Normal0.9-7.0[facility] Comment on above:Performed By: #### A1C #### [facility] [address] [place] [address] Dr. Juan Pablo Cruzrythrocyte distribution width (RBC) [Ratio]11.1 %Ddscvq89.0-15.0 The Cherrington HospitalComment on above:Performed By: #### A1C #### [facility] [address] [place] [address] Dr. Juan Pablo KaminskiHematocrit (Bld) [Volume fraction]41.8 %Critically low42.0-54.0 [facility] HospitalComment on above:Performed By: #### A1C #### [facility] [address] [place] [address] Dr. Juan Pablo KaminskiHemoglobin (Bld) [Mass/Vol]14.1 g/uAAvmivn45.0-18.0The Cherrington HospitalComment on above:Performed By: #### A1C #### [facility] [address] [place] [address] Dr. Juan Pablo Norman #0.03 10e3/ulNormal0.00-0.03The [facility]rington HospitalComment on above:Performed By: #### A1C #### [facility] [address] [place] [address] Dr. Juan Pablo Norman %0.4 %Normal0.0-0.5The [facility] North Hospitalment on above: Performed By: #### A1C #### [facility] [address] [place] [address] Dr. Juan Pablo ChaudharyH #2.2 103/ulNormal1.2-3.8The Cherrington HospitalComment on above:Performed By: #### A1C #### [facility] [address] [place] [address] Dr. Juan Pablo Hermphocytes/100 WBC (Bld)29.4 %Vsnbhr20.5-60.0The [facility]rington HospitalComment on above:Performed By: #### A1C #### [facility] [address] [place] [address] Dr. Juan Pablo Lua DIFF REQNONormalThe Cherrington HospitalComment on above: Performed By: #### A1C #### [facility] [address] [place] [address] Dr. Juan Pablo Mckay (RBC) [Entitic mass]31.8 atKpztwr90.9-34.0The [facility]rington HospitalComment on above:Performed By: #### A1C #### [facility] [address] [place] [address] Dr. Juan Pablo Mckay (RBC) [Mass/Vol]33.7 g/xGVuaodf96.9-35.2The [facility]rington HospitalComment on above:Performed By: #### A1C #### [facility] [address] [place] [address] Dr. Juan Pablo Mckay (RBC) [Entitic vol]94.1 fLCritically high80.0-94.0The [facility]rington HospitalComment on above:Performed By: #### A1C #### [facility] [address] [place] [address] Dr. Juan Pablo Balderrama #0.9 103/ulCritically high0.3-0.8ThSal[facility] Comment on above:Performed By: #### A1C #### [facility] [address] [place] [address] Dr. Juan Pablo Anthonyocytes/100 WBC (Bld)11.7 %Normal1.7-12.0[facility] Comment on above:Performed By: #### A1C #### [facility] [address] [place] [address] Dr. Juan Pablo Jcaobson #4.0 103/ulNormal1.4-6.5The [facility] HospitalComment on above:Performed By: #### A1C #### [facility] [address] [place] [address] Dr. Juan Pablo Mohanutrophils/100 WBC (Bld)54.4 %Grzpgu37.0-75.0The [facility]rington HospitalComment on above:Performed By: #### A1C #### [facility] [address] [place] [address] Dr. Juan Pablo Lizarraga mean volume (Bld) [Entitic vol]8.6 fLCritically low 9.5-13.5The [facility]rington HospitalComment on above:Performed By: #### A1C #### [facility] [address] [place] [address] Dr. Juan Pablo KaminskiPLT231 103/wxSqkkgv974-987Grm [facility] HospitalComveterans affairs [facility] on above: Performed By: #### A1C #### [facility] [address] [place] [address] Dr. Juan Pablo KaminskiRBC4.44 106/ulCritically low4.70-6.10The [facility] HospitalComveterans affairs [facility] on above:Performed By: #### A1C #### [facility] [address] [place] [address] Dr. Juan Pablo KaminskiWBC7.3 103/ulNormal4.0-11.0The [facility] HospitalComveterans affairs [facility] on above: Performed By: #### A1C #### [facility] [address] [place] [address] Dr. Juan Pablo ReyRECT LDLon 48-88-8318Kwtpwinilav in LDL [Mass/Vol]106 mg/dL NormalPromedica Fostoria Community HospitalComveterans affairs [facility] on above:Performed By: #### ALT, BMP, DLDL #### [facility] [address] [place] [address] Dr. Juan Pablo KaminskiDLDL NORMALSEE [facility] CENTERNoMarietta Osteopathic ClinicComveterans affairs [facility] on above: Result Comment: <100 mg/dl OPTIMAL 100 - 129 mg/dl NEAR OR ABOVE OPTIMAL 130 - 159 mg/dl BORDERLINE HIGH 160 - 189 mg/dl HIGH >190 mg/dl VERY HIGHPerformed By: #### ALT, BMP, DLDL #### [facility] [address] [place] [address] Dr. Juan Pablo KaminskiGLYCOHEMOGLOBIN A1Con 62-11-0460TYD RECOMMENDATIONSEE BELOWSpurger The Anderson HospitalComment on above:Result Comment: ADA RECOMMENDED LIMIT 4.0 - 6.0 ADA THERAPEUTIC TARGET < 7.0 ACTION SUGGESTED > 7.0Performed By: #### A1C #### [facility] [address] [place] [address] Dr. Juan Pablo KaminskiGlucose [Mass/Vol]120 mg/dLNormalThe Cherrington HospitalComment on above:Performed By: #### A1C #### [facility] [address] [place] [address] Dr. Juan Pablo KaminskiHbA1c (Bld) [Mass fraction]5.8 %Normal4.5-6.2The [facility]rington HospitalComment on above:Performed By: #### A1C #### [facility] [address] [place] [address] Dr. Juan Pablo LomasF CHEM 8 (BAS METB)on 52-30-5111Dwswf gap [Moles/Vol]12.7 mmol/LNormalThe Cherrington HospitalComment on above:Performed By: #### A1C #### [facility] [address] [place] [address] Dr. Juan Pablo KaminskiCalcium [Mass/Vol]8.7 mg/dLNormal8.5-10.1[facility] Comment on above:Performed By: #### A1C #### [facility] [address] [place] [address] Dr. Juan Pablo KaminskiChloride [Moles/Vol]98 mmol/UCdjcov61-182Qny [facility] Comment on above:Performed By: #### A1C #### [facility] [address] [place] [address] Dr. Juan Pablo KaminskiCO2 [Moles/Vol]28.0 mmol/BRcluft68.0-32.0[facility] Comment on above:Performed By: #### A1C #### [facility] [address] [place] [address] Dr. Juan Pablo KaminskiCreatinine [Mass/Vol]1.07 mg/dLNormal0.70-1.30[facility] HospitalComment on above:Performed By: #### A1C #### [facility] [address] [address] [address] Juan Pablo CruzGFR-AF SRI LANKAN>60Normal>=60The [facility] HospitalComment on above:Performed By: #### A1C #### [facility] [address] [place] [address] Dr. Juan Pablo CruzGFR-NON AF SRI LANKAN>60Normal>=60[facility] HospitalComment on above:Performed By: #### A1C #### [facility] [address] [place] [address] Dr. Juan Pablo KaminskiGlucose [Mass/Vol]133 mg/dLCritically ohzh29-785Gcm [facility] HospitalComment on above:Performed By: #### A1C #### [facility] [address] [place] [address] Dr. Juan Pablo KamniskiPotassium [Moles/Vol]4.7 mmol/LNormal3.5-5.1[facility] Comment on above:Performed By: #### A1C #### [facility] [address] [place] [address] Dr. Juan Pablo Gillilanddium [Moles/Vol]134 mmol/LCritically zlq647-703Cav [facility]Comment on above:Performed By: #### A1C #### [facility] [address] [place] [address] Dr. Juan Pablo KaminskiUrea nitrogen [Mass/Vol]17.0 mg/dLNormal7.0-18.0The [facility] HospitalComment on above:Performed By: #### A1C #### [facility] [address] [place] [address] Dr. Juan Pablo KaminskiUrea nitrogen/Creatinine [Mass ratio]15.9 mg/mgNormalThe [facility] HospitalComment on above:Performed By: #### A1C #### [facility] [address] [place] [address] Dr. Juan Pablo Morfin [id number] [Catalytic activity/Vol]31 U/ITvyuxr18-81Jab [facility] HospitalComment on above:Performed By: #### A1C #### [facility] [address] [place] [address] Dr. Juan Pablo KaminskiGLYCOHEMOGLOBIN A1Con 26-03-3246ELV RECOMMENDATIONSEE BELOWNormal The [facility] HospitalComment on above:Result Comment: ADA RECOMMENDED LIMIT 4.0 - 6.0 ADA THERAPEUTIC TARGET < 7.0 ACTION SUGGESTED > 7.0Performed By: #### A1C #### [facility] [address] [place], [place] [address] Dr. Juan Pablo KaminskiGlucose [Mass/Vol]131 mg/dLNormalThe [facility] HospitalComment on above:Performed By: #### A1C #### [facility] [address] [place], [place] [address] Dr. Juan Pablo KaminskiHbA1c (Bld) [Mass fraction]6.2 %Normal4.5-6.2[facility] HospitalComment [facility] above:Performed By: #### A1C #### [facility] [address] [place], [place] [address] Dr. Juan Pablo Kaminski Vital Signs Date TimeVital SignValuePerforming [id number] 08:31-0500Body ecngvj878.5 cmBenjamin Ball DO Work Phone: 1(596)394-[address] [place], [place] 4445211-10-2025 08:31-0500 Body mass index (BMI) [Ratio]27.3 kg/d9Vkjhzyfd Ball DO Work Phone: 1(093)[address]11-10-2025 08:31-0500 Body jnuyjh33.33 kgBenjamin Ball DO Work Phone: 1(408)555-[address] [place], [place] 4445211-10-2025 08:31-0500 Diastolic blood vyznqqlu25 mm[Hg]Campbell Ball DO Work Phone: 1(007)[address]11-10-2025 08:31-0500 Heart rate59 /minBenjamin Ball DO Work Phone: 1(786)[address]11-10-2025 08:31-0500 Respiratory rate12 /minBenjamin Ball DO Work Phone: 1(847)[address]11-10-2025 08:31-0500 SaO2% (BldA) [Mass fraction]100 %Campbell Ball DO Work Phone: [phone])[address] [place], [place] 5207011-10-2025 08:31-0500 Systolic blood zpoierdx539 mm[Hg]Campbell Ball DO Work Phone: [phone])[address] [place], [place] 5207010-07-2025 13:17-0400 Body zirycx668.5 cmBenjamin Ball DO Work Phone: [phone])[address] [place], [place] 5207010-07-2025 13:17-0400 Body mass index (BMI) [Ratio]28 kg/j1Qqfujzec Ball DO Work Phone: [phone])[address] [place], [place] 5207010-07-2025 13:17-0400 Body .77 kgBenjamin Ball DO Work Phone: [phone])[address] [place], [place] 5207010-07-2025 13:17-0400 Diastolic blood oyfsejux75 mm[Hg]Campbell Ball DO Work Phone: [phone])[address] [place], [place] 5207010-07-2025 13:17-0400 Heart rate62 /minBenjamin Ball DO Work Phone: [phone])[address] [place], [place] 5207010-07-2025 13:17-0400 Respiratory rate12 /minBenjamin Ball DO Work Phone: [phone])[address] [place], [place] 5207010-07-2025 13:17-0400 Systolic blood vkaslkdx151 mm[Hg]Campbell Ball DO Work Phone: [address] [place], [place] 5207008-12-2025 15:03-0400 Body mass index (BMI) [Ratio]27.5 kg/m5Fpqtgmoses Milian BILLING CUSTOMER SERVICE REPRESENTATIVE.TELEGRAPH MESSENGER Work Phone: [facility]08-12-2025 15:03-0400Body zgsuqc12.79 kgTerri Rukhsana BILLING CUSTOMER SERVICE REPRESENTATIVE.TELEGRAPH MESSENGER Work Phone: [facility]08-12-2025 15:03-0400Diastolic blood mm[Hg]Leticia Milian APRNArmandoTELEGRAPH MESSENGER Work Phone: [facility]08-12-2025 15:03-0400Heart rate62 /min Leticia Felderson BILLING CUSTOMER SERVICE REPRESENTATIVE.TELEGRAPH MESSENGER Work Phone: [facility]08-12-2025 15:03-0400Systolic blood enyvpffc325 mm[Hg]Leticia Milian BILLING CUSTOMER SERVICE REPRESENTATIVE.TELEGRAPH MESSENGER Work Phone: [facility]07-25-2025 08:24-0400Body .5 cmBenjamin Ball DO Work Phone: 1(987)[address]07-25-2025 08:24-0400 Body mass index (BMI) [Ratio]27.1 kg/a1Rbwtghpa Ball DO Work Phone: 1(736)[address] [place], [place] 5207007-25-2025 08:24-0400 Body jvxudu25.62 kgBenjamin Ball DO Work Phone: 1(457)[address] [place], [place] 5207007-25-2025 08:24-0400 Diastolic blood mm[Hg]Campbell Ball DO Work Phone: [address] [place], [place] 5207007-25-2025 08:24-0400 Heart rate51 /minBenjamin Ball DO Work Phone: 1(145)[address] [place], [place] 5207007-25-2025 08:24-0400 Respiratory rate12 /minBenjamin Ball DO Work Phone: 1(690)[address] [place], [place] 5207007-25-2025 08:24-0400 SaO2% (BldA) [Mass fraction]99 %Campbell Ball DO Work Phone: 1(732)[facility] [place], [place] 4445207-25-2025 08:24-0400 Systolic blood yknspeyk575 mm[Hg]Campbell Ball DO Work Phone: 1(200)[address] [place], [place] 5207007-10-2025 09:36-0400 Body .5 cmBenjamin Ball DO Work Phone: 1(824)[address] [place], [place] 5207007-10-2025 09:36-0400 Body mass index (BMI) [Ratio]27.6 kg/f4Chwbxonf Ball DO Work Phone: 1(135)[address] [place], [place] 5207007-10-2025 09:36-0400 Body iemecp093.3 kgBenjamin Ball DO Work Phone: [phone]07-10-2025 09:36-0400 Diastolic blood mm[Hg]Campbell Ball DO Work Phone: 1([phone]07-10-2025 09:36-0400 Heart rate52 /minBenjamin Ball DO Work Phone: 1(954)188-[address] [place], [place] 4445207-10-2025 09:36-0400 Respiratory rate12 /minBenjamin Ball DO Work Phone: 1(110)471-[address] [place], [place] 4445207-10-2025 09:36-0400 SaO2% (BldA) [Mass fraction]98 %Campbell Ball DO Work Phone: 1(354)239-[address] [place], [place] 4445207-10-2025 09:36-0400 Systolic blood uywdiffh158 mm[Hg]Campbell Ball DO Work Phone: 1(701)745-[address] [place], [place] 4445206-02-2025 10:27-0400 Body gieevm973.[address] [facility]06-02-2025 10:27-0400Body mass index (BMI) [Ratio]28.1 kg/t6IkobdpsjvMercy Health St. [facility]06-02-2025 10:27-0400Body [address]xylgz530.[address] [facility]06-02-2025 10:27-0400Diastolic blood jceyzlby22 mm[Hg][facility] 08-14-2024 10:27-0400Heart rate50 /[facility] 08-14-2024 10:27-0400Respiratory rate18 /[facility] 08-14-2024 10:27-0400Systolic blood yrvzdkuj625 mm[Hg][facility]04-23-2025 09:38-0400Diastolic blood auazfped82 mm[Hg][facility]04-23-2025 09:38-0400Diastolic blood xqsyhspo99 mm[Hg][facility]04-23-2025 09:38-0400Heart rate60 /[facility]04-23-2025 09:38-0400Systolic blood ritumtpk345 mm[Hg][facility]04-23-2025 09:38-0400Systolic blood yqekuizt199 mm[Hg] [facility]04-23-2025 09:30-0400Body shocok923.[address] [facility]04-23-2025 09:30-0400Body mass index (BMI) [Ratio]28.3 kg/q7WmvtfpctzMercy Health St. [facility]04-23-2025 09:30-0400Body .[address] [facility]04-23-2025 09:30-0400Respiratory rate12 /[facility]04-23-2025 09:30-5036TsH6% (BldA) [Mass fraction]98 %[facility]03-10-2025 10:05-0400Body .[address] [facility]03-10-2025 10:05-0400Body mass index (BMI) [Ratio]28.6 kg/u5DunsetwohMercy Health St. [facility]03-10-2025 10:05-0400Body .[address] [facility]03-10-2025 10:05-0400Diastolic blood ycejnhzn28 mm[Hg][facility] 05-22-2024 10:05-0400Heart rate55 /[facility] 05-22-2024 10:05-0400Respiratory rate18 /[facility] 05-22-2024 10:05-6884ZcE0% (BldA) [Mass fraction]98 %[facility]03-10-2025 10:05-0400Systolic blood yqaxvkiy237 mm[Hg][facility]02-10-2025 13:24-0500Diastolic blood furyxgpc30 mm[Hg]Campbell Ball DO Work Phone: [facility]02-10-2025 13:24-0500 Heart rate82 /minBenjamin Ball DO Work Phone: [facility]02-10-2025 13:24-0500 Respiratory rate18 /minBenjamin Ball DO Work Phone: [facility]02-10-2025 13:24-0500 Systolic blood mm[Hg]Campbell Ball DO Work Phone: [facility]02-10-2025 13:23-0500 Body cupbqy729.5 cmBenjamin Ball DO Work Phone: [phone]02-10-2025 13:23-0500 Body mass index (BMI) [Ratio]27.8 kg/l7Cawvoudk Ball DO Work Phone: 1(110)[phone]02-10-2025 13:23-0500 Body .15 kgBenjamin Ball DO Work Phone: 1([phone])[phone]02-10-2025 13:23-0500 SaO2% (BldA) [Mass fraction]97 %Campbell Ball DO Work Phone: [phone]02-07-2025 16:26-0500 Body mass index (BMI) [Ratio]26.87 kg/h0Ukhxh Dolliver BILLING CUSTOMER SERVICE REPRESENTATIVE.TELEGRAPH MESSENGER Work Phone: [facility]02-07-2025 16:26-0500Body wwqdev06.52 kgTerri Dolliver BILLING CUSTOMER SERVICE REPRESENTATIVE.TELEGRAPH MESSENGER Work Phone: [phone]02-07-2025 16:26-0500Diastolic blood zkdxogag26 mm[Hg]Leticia Rukhsana BILLING CUSTOMER SERVICE REPRESENTATIVE.TELEGRAPH MESSENGER Work Phone: [phone]02-07-2025 16:26-0500Heart rate76 /min Leticia Rukhsana BILLING CUSTOMER SERVICE REPRESENTATIVE.TELEGRAPH MESSENGER Work Phone: [facility]02-07-2025 16:26-0500Systolic blood qjobdqms510 mm[Hg]Leticia Dolliver BILLING CUSTOMER SERVICE REPRESENTATIVE.TELEGRAPH MESSENGER Work Phone: [phone]01-22-2025 08:32-0500Body ynbaaj012.5 cmBenjamin Ball DO Work Phone: 1(419)[address] [place], [place] 5207001-22-2025 08:32-0500 Body mass index (BMI) [Ratio]27.8 kg/x8Dbwkuops Ball DO Work Phone: 1(419)[address] [place], [place] 5207001-22-2025 08:32-0500 Body qhbcde880.15 kgBenjamin Ball DO Work Phone: 1(419)[address] [place], [place] 5207001-22-2025 08:32-0500 Diastolic blood ytthhjqe63 mm[Hg]Campbell Ball DO Work Phone: 1(419)[address] [place], [place] 5207001-22-2025 08:32-0500 Diastolic blood zhgimjzz72 mm[Hg]Campbell Ball DO Work Phone: 1(419)[address] [place], [place] 5207001-22-2025 08:32-0500 Heart rate71 /minBenjamin Ball DO Work Phone: 1(419)[address] [place], [place] 5207001-22-2025 08:32-0500 SaO2% (BldA) [Mass fraction]100 %Campbell Ball DO Work Phone: 1(419)[address] [place], [place] 5207001-22-2025 08:32-0500 Systolic blood ftqcsgeq315 mm[Hg]Campbell Ball DO Work Phone: 1(419)[address] [place], [place] 5207001-22-2025 08:32-0500 Systolic blood qjugqlxx268 mm[Hg]Campbell Ball DO Work Phone: 1(419)[address] [place], [place] 5207012-31-2024 15:07-0500 Body aoriig434.5 cmBenjamin Ball DO Work Phone: 1(419)[address] [place], [place] 5207012-31-2024 15:07-0500 Body mass index (BMI) [Ratio]28 kg/s3Wxotwbkc Ball DO Work Phone: 1(419)[address] [place], [place] 5207012-31-2024 15:07-0500 Body .6 kgBenjamin Ball DO Work Phone: 1(419)[address] [place], [place] 5207012-31-2024 15:07-0500 Diastolic blood mm[Hg]Campbell Ball DO Work Phone: [facility]12-31-2024 15:07-0500 Heart rate75 /minBenjamin Ball DO Work Phone: [facility]12-31-2024 15:07-0500 Respiratory rate18 /minBenjamin Ball DO Work Phone: [facility]12-31-2024 15:07-0500 SaO2% (BldA) [Mass fraction]98 %Campbell Ball DO Work Phone: [facility]12-31-2024 15:07-0500 Systolic blood jleqfqhq371 mm[Hg]Campbell Ball DO Work Phone: [facility]11-26-2024 08:32-0500 Body mass index (BMI) [Ratio]28.12 kg/r9AsviyLeticia Milian BILLING CUSTOMER SERVICE REPRESENTATIVE.TELEGRAPH MESSENGER Work Phone: [facility]11-26-2024 08:32-0500Body ulvvvx859.06 kgLeticia Milian BILLING CUSTOMER SERVICE REPRESENTATIVE.TELEGRAPH MESSENGER Work Phone: [facility]11-26-2024 08:32-0500Diastolic blood fgmzeaqf75 mm[Hg]Leticia Milian BILLING CUSTOMER SERVICE REPRESENTATIVE.TELEGRAPH MESSENGER Work Phone: [facility]11-26-2024 08:32-0500Heart rate54 /min Leticia Milian BILLING CUSTOMER SERVICE REPRESENTATIVE.TELEGRAPH MESSENGER Work Phone: [facility]11-26-2024 08:32-0500Systolic blood lqvmhgiq327 mm[Hg]Leticia Milian BILLING CUSTOMER SERVICE REPRESENTATIVE.TELEGRAPH MESSENGER Work Phone: [facility]11-19-2024 13:25-0500Body tsjwfi480.[address] [facility]11-19-2024 13:25-0500Body mass index (BMI) [Ratio]28.5 kg/e0BxrsenvdvMercy Health St. [facility]11-19-2024 13:25-0500Body lgwpeo904.[address] [facility]11-19-2024 13:25-0500Diastolic blood ekoygbdc42 mm[Hg][place] [address]-19-2024 13:25-0500 Heart rate63 /[facility]11-19-2024 13:25-0500 Respiratory rate63 /[facility]11-19-2024 13:25-0500 Systolic blood semdyjrk030 mm[Hg][facility]10-15-2024 08:30-0400Body .[address] [facility]10-15-2024 08:30-0400Body mass index (BMI) [Ratio]27.8 kg/u9UjixnvunpMer[address] Health St[facility]10-15-2024 08:30-0400Body tvehjw742.[address] [facility] 12-28-2023 08:30-0400Diastolic blood dvapogqo81 mm[Hg][facility]10-15-2024 08:30-0400Heart rate71 /[facility] 12-28-2023 08:30-0400Respiratory rate12 /[facility] 12-28-2023 08:30-0400Systolic blood rkjqymvx511 mm[Hg][facility]07-11-2024 08:35-0400Body bkozzs577.5 cmDO Campbell Ball Work Phone: [facility]07-11-2024 08:35-0400 Body mass index (BMI) [Ratio]27.8 kg/m2DO Campbell Ball Work Phone: [facility]07-11-2024 08:35-0400 Body ujnjvo398.86 kgDO Campbell Ball Work Phone: [phone]07-11-2024 08:35-0400 Diastolic blood btieqbiw75 mm[Hg]DO Campbell Ball Work Phone: [facility]07-11-2024 08:35-0400 Heart rate70 /minDO Campbell Ball Work Phone: [facility]07-11-2024 08:35-0400 Respiratory rate12 /minDO Campbell Ball Work Phone: [facility]07-11-2024 08:35-0400 Systolic blood torbqdik942 mm[Hg]DO Campbell Ball Work Phone: [phone]05-22-2024 08:59-0400 Body mass index (BMI) [Ratio]27.5 kg/k6Lxuwh Rukhsaan BILLING CUSTOMER SERVICE REPRESENTATIVE.TELEGRAPH MESSENGER Work Phone: [facility]05-22-2024 08:59-0400Body baooig17.79 kgTerri Rukhsana BILLING CUSTOMER SERVICE REPRESENTATIVE.TELEGRAPH MESSENGER Work Phone: [phone]05-22-2024 08:59-0400Diastolic blood viznfdqz81 mm[Hg]Leticiafabiana Milian BILLING CUSTOMER SERVICE REPRESENTATIVE.TELEGRAPH MESSENGER Work Phone: [phone]05-22-2024 08:59-0400Heart rate65 /min Leticia Milian BILLING CUSTOMER SERVICE REPRESENTATIVE.TELEGRAPH MESSENGER Work Phone: [phone]05-22-2024 08:59-0400Systolic blood senmegmw038 mm[Hg]Leticiafabiana Milian BILLING CUSTOMER SERVICE REPRESENTATIVE.TELEGRAPH MESSENGER Work Phone: [phone]04-26-2024 13:38-0400Body dxrfgi037.5 cmDO Campbell Ball Work Phone: 1([phone]04-26-2024 13:38-0400 Body mass index (BMI) [Ratio]28 kg/m2DO Campbell Ball Work Phone: 1(114)[phone]04-26-2024 13:38-0400 Body xyqlcc722.6 kgDO Campbell Ball Work Phone: 1(912)[phone]04-26-2024 13:38-0400 Diastolic blood fumdespa35 mm[Hg]DO Campbell Ball Work Phone: 1(734)[phone]04-26-2024 13:38-0400 Heart rate78 /minDO Campbell Ball Work Phone: [phone])[phone]04-26-2024 13:38-0400 Systolic blood rcxrgnfy233 mm[Hg]DO Campbell Ball Work Phone: 1(088)[phone]04-10-2024 09:16-0400 Body ltqmri607.5 cmDO Campbell Ball Work Phone: 1(122)[address] [place], [place] 5207004-10-2024 09:16-0400 Body mass index (BMI) [Ratio]28 kg/m2DO Campbell Ball Work Phone: 1(642)[address]04-10-2024 09:16-0400 Body ugfhxo623.6 kgDO Campbell Ball Work Phone: 1(647)[address] [place], [place] 5207004-10-2024 09:16-0400 Diastolic blood mm[Hg]DO Campbell Ball Work Phone: 1(624)[address] [place], [place] 5207004-10-2024 09:16-0400 Heart rate69 /minDO Campbell Ball Work Phone: 1(070)[address] [place], [place] 5207004-10-2024 09:16-0400 Respiratory rate16 /minDO Campbell Ball Work Phone: 1(764)[address] [place], [place] 5207004-10-2024 09:16-0400 Systolic blood qjrsyhwd065 mm[Hg]DO Campbell Ball Work Phone: 1(102)[address] [place], [place] 5207003-08-2024 10:53-0500 Body .5 cmDO Campbell Ball Work Phone: 1(124)[address] [place], [place] 5207003-08-2024 10:53-0500 Body mass index (BMI) [Ratio]27 kg/m2DO Campbell Ball Work Phone: 1(999)[address] [place], [place] 5207003-08-2024 10:53-0500 Body lgfinm21.03 kgDO Campbell Ball Work Phone: 1(324)[address] [place], [place] 5207003-08-2024 10:53-0500 Diastolic blood blcxitds32 mm[Hg]DO Campbell Ball Work Phone: 1(519)[address] [place], [place] 5207003-08-2024 10:53-0500 Heart rate76 /minDO Campbell Ball Work Phone: 1(286)[address] [place], [place] 5207003-08-2024 10:53-0500 Respiratory rate12 /minDO Campbell Ball Work Phone: 1(458)[address] [place], [place] 5207003-08-2024 10:53-0500 Systolic blood mm[Hg]DO Campbell Ball Work Phone: 1([phone]03-02-2024 13:10-0500 Body nzrzpwsfxyr70.6 [degF]DO Campbell Ball Work Phone: 1(760)[phone]03-02-2024 13:10-0500 Diastolic blood tahwujdb65 mm[Hg]DO Campbell Ball Work Phone: 1(454)854-83[facility]03-02-2024 13:10-0500 Heart rate90 /minDO Campbell Ball Work Phone: 1(440)204-[address] [place], [place] 4445203-02-2024 13:10-0500 Respiratory rate18 /minDO Campbell Ball Work Phone: 1(220)[phone]03-02-2024 13:10-0500 SaO2% (BldA) [Mass fraction]97 %DO Campbell Ball Work Phone: 1(970)[phone]03-02-2024 13:10-0500 Systolic blood mm[Hg]DO Campbell Ball Work Phone: 1(752)617-[address] [place], [place] 4445203-02-2024 10:56-0500 Body uuvatx408.5 cmDO Campbell Ball Work Phone: 1(209)[phone]03-02-2024 10:56-0500 Body yqgvyo69.9 kgDO Campbell Ball Work Phone: 1([phone])[phone]02-07-2024 14:30-0500 Body aogumr806.5 cmBenjamin Ball Other [facility] [employer] Other 02-07-2024 14:30-0500Body mass index (BMI) [Ratio] 28.07 kg/h9Vzylhrgc Ball Other [employer] Other 02-07-2024 14:30-0500Body lwbpre218.88 kgBenjamin Ball Other [employer] Other 02-07-2024 14:30-0500Diastolic blood mm[Hg] Campbell Ball Other [employer] Other 02-07-2024 14:30-0500Respiratory rate12 /minBenjamin Ball Other [employer] Other 02-07-2024 14:30-0500Systolic blood qhrzorhi476 mm[Hg] Acmpbell Ball Other [employer] Other 01-03-2024 10:30-0500Body gcnwit938.5 cmBenjamin Ball Other [employer] Other 01-03-2024 10:30-0500Body mass index (BMI) [Ratio] 27.55 kg/d2Ifumkqii Ball Other [employer] Other 01-03-2024 10:30-0500Body aiqyur63.97 kgBenjamin Ball Other [employer] Other 01-03-2024 10:30-0500Diastolic blood fswasdyu14 mm[Hg] Campbell Ball Other [employer] Other 01-03-2024 10:30-0500Respiratory rate12 /minBenjamin Ball Other [employer] Other 01-03-2024 10:30-0500Systolic blood mkfvhoil980 mm[Hg] Campbell Ball Other [employer] Other 12-12-2023 09:30-0500Body eofpwd720.5 cmBenjamin Ball Other [employer] Other 12-12-2023 09:30-0500Body mass index (BMI) [Ratio] 28.02 kg/h6Dbwaoidv Ball Other [employer] Other 12-12-2023 09:30-0500Body bqtmid109.7 kgBenjamin Ball Other [employer] Other 12-12-2023 09:30-0500Diastolic blood shuqitba51 mm[Hg] Campbell Ball Other [employer] Other 12-12-2023 09:30-0500Respiratory rate12 /minBenjamin Ball Other [employer] Other 12-12-2023 09:30-0500Systolic blood lwizkqeo175 mm[Hg] Campbell Ball Other [employer] Other 12-08-2023 10:45-0500Body oomuks306.5 cmBenjamin Ball Other [employer] Other 12-08-2023 10:45-0500Body mass index (BMI) [Ratio]28 kg/f7Qchjjyop Ball Other [employer] Other 12-08-2023 10:45-0500Body lmtupm667.61 kgBenjamin Ball Other [employer] Other 12-08-2023 10:45-0500Diastolic blood jmujswoo25 mm[Hg] Campbell Ball Other [employer] Other 12-08-2023 10:45-0500Respiratory rate12 /minBenjamin Ball Other [facility] [employer] Other 12-08-2023 10:45-0500Systolic blood ayivezua369 mm[Hg] Campbell Ball Other [employer] Other [id number] 13:37-0500Body .06 kgTerri Rukhsana BILLING CUSTOMER SERVICE REPRESENTATIVE.TELEGRAPH MESSENGER Work Phone: [facility]11-21-2023 13:37-0500Diastolic blood ehvwvqzp37 mm[Hg]Leticia Dolliver BILLING CUSTOMER SERVICE REPRESENTATIVE.TELEGRAPH MESSENGER Work Phone: [facility]11-21-2023 13:37-0500Heart rate65 /min Leticia Rukhsana BILLING CUSTOMER SERVICE REPRESENTATIVE.TELEGRAPH MESSENGER Work Phone: [facility]11-21-2023 13:37-0500Systolic blood etthcfuy371 mm[Hg]Leticia Rukhsana BILLING CUSTOMER SERVICE REPRESENTATIVE.TELEGRAPH MESSENGER Work Phone: [facility]07-11-2023 12:15-0400Body ingnpk851.5 cmBenjamin Ball Other [facility] [employer] [facility] Other 07-11-2023 12:15-0400Diastolic blood mm[Hg] Campbell Ball Other [facility] Other 07-11-2023 12:15-0400Systolic blood krudzxvx482 mm[Hg] Campbell Ball Other [facility] [facility] Other 07-06-2023 09:00-0400Body wjhepe929.5 cmBenjamin Ball Other [facility] Other 07-06-2023 09:00-0400Body mass index (BMI) [Ratio] 27.57 kg/v0Cmbpgxsg Ball Other [facility] Other 07-06-2023 09:00-0400Body knraat290.06 kgBenjamin Ball Other [employer] Other 07-06-2023 09:00-0400Diastolic blood inabbnmq91 mm[Hg] Campbell Ball Other [employer] Other 07-06-2023 09:00-0400Respiratory rate12 /minBenjamin Ball Other [employer] [facility] Other 07-06-2023 09:00-0400Systolic blood sukfeman507 mm[Hg] Campbell Ball Other [employer] Other 04-06-2023 10:00-0400Body focsrg426.5 cmBenjamin Ball Other [facility] Other 04-06-2023 10:00-0400Body mass index (BMI) [Ratio] 28.02 kg/t1Cwvicwfq Ball Other [employer] Other 04-06-2023 10:00-0400Body wkgeuh898.7 kgBenjamin Ball Other [employer] Other 04-06-2023 10:00-0400Diastolic blood ybviosvz70 mm[Hg] Campbell Ball Other [employer] Other 04-06-2023 10:00-0400Respiratory rate12 /minBenjamin Ball Other [employer] Other 04-06-2023 10:00-0400Systolic blood jfavqxbe476 mm[Hg] Campbell Ball Other [employer] Other 01-25-2023 12:00-0500Body .5 cmBenjamin Ball Other [employer] Other 01-25-2023 12:00-0500Body mass index (BMI) [Ratio] 27.82 kg/h3Jadzvsxa Ball Other [employer] Other 01-25-2023 12:00-0500Body lopnsyxfhdc26.1 [degF] Campbell Ball Other [employer] Other 01-25-2023 12:00-0500Body nimkuq779.97 kgBenjamin Ball Other [employer] Other 01-25-2023 12:00-0500Diastolic blood mm[Hg] Campbell Ball Other [employer] Other 01-25-2023 12:00-2915TzS7% (BldA) [Mass fraction]97 % Campbell Ball Other [employer] Other 01-25-2023 12:00-0500Systolic blood becwmpnn189 mm[Hg] Campbell Ball Other [employer] Other 01-06-2023 10:00-0500Body otkkbk179.5 cmBenjamin Ball Other [employer] Other 01-06-2023 10:00-0500Body mass index (BMI) [Ratio] 27.95 kg/f2Akyyafty Ball Other [employer] Other 01-06-2023 10:00-0500Body oslxro945.42 kgBenjamin Ball Other [employer] Other 01-06-2023 10:00-0500Diastolic blood hhhlohce26 mm[Hg] Campbell Ball Other [employer] Other 01-06-2023 10:00-0500Respiratory rate12 /minBenjamin Ball Other [employer] Other 01-06-2023 10:00-0500Systolic blood mm[Hg] Campbell Ball Other [employer] Other [id number] 08:47-0400Body epfkmh13.52 kgLeonard Dugan MD Work Phone: [facility]10-27-2022 08:47-0400Diastolic blood dfiozyww57 mm[Hg]Leonard Dugan MD Work Phone: [facility]10-27-2022 08:47-0400Heart rate72 /min Leonard Dugan MD Work Phone: [facility]10-27-2022 08:47-0400Systolic blood mkkxrayj024 mm[Hg]Leonard Dugan MD Work Phone: [facility]10-14-2022 08:32-0400Body temperature 98 [degF]DO Campbell Ball Work Phone: [facility]10-14-2022 08:32-0400 Diastolic blood jlalxwzi08 mm[Hg]DO Campbell Ball Work Phone: [facility]10-14-2022 08:32-0400 Heart rate75 /minDO Campbell Ball Work Phone: [facility]10-14-2022 08:32-0400 Respiratory rate18 /minDO Campbell Ball Work Phone: [facility]10-14-2022 08:32-0400 SaO2% (BldA) [Mass fraction]98 %DO Campbell Ball Work Phone: 1(039)265-[address] [place], [place] 4445210-14-2022 08:32-0400 Systolic blood wsvyfmqc426 mm[Hg]DO Campbell Ball Work Phone: [phone])[address]10-05-2022 16:22-0400 Body uwwpip298.5 cmDO Campbell Ball Work Phone: 1(595)[address]10-05-2022 16:22-0400 Body uuildc43.52 kgDO Campbell Ball Work Phone: 1(707)[address]10-05-2022 16:19-0400 Body wxicvbbtump24.4 [degF]DO Campbell Ball Work Phone: 1(970)[address] [place], [place] 5207010-05-2022 16:19-0400 Diastolic blood vzlkiwju57 mm[Hg]DO Campbell Ball Work Phone: 1(195)[address] [place], [place] 5207010-05-2022 16:19-0400 Heart rate66 /minDO Campbell Ball Work Phone: 1(843)[address]10-05-2022 16:19-0400 Respiratory rate16 /minDO Campbell Ball Work Phone: 1(004)[address] [place], [place] 5207010-05-2022 16:19-0400 SaO2% (BldA) [Mass fraction]96 %DO Campbell Ball Work Phone: 1(882)[address] [place], [place] 5207010-05-2022 16:19-0400 Systolic blood kmhjnorc825 mm[Hg]DO Campbell Ball Work Phone: 1(201)[address]10-04-2022 14:41-0400 Diastolic blood ayumjjaa43 mm[Hg]Leonard Dugan MD Work Phone: [facility]10-04-2022 14:41-0400Heart rate69 /min Leonard Dugan MD Work Phone: [facility]10-04-2022 14:41-0400Respiratory rate 16 /minLeonard Dugan MD Work Phone: [facility]10-04-2022 14:41-0400Systolic blood gnywtbij772 mm[Hg]Leonard Dugan MD Work Phone: [facility]09-29-2022 18:25-0400Body temperature 97.5 [degF]DO Campbell Ball Work Phone: [facility]09-29-2022 18:25-0400 Diastolic blood mm[Hg]DO Campbell Ball Work Phone: [facility]09-29-2022 18:25-0400 Heart rate67 /minDO Campbell Saavedra Work Phone: [phone]09-29-2022 18:25-0400 Respiratory rate20 /minDO Campbell Saavedra Work Phone: 1(874)790-[address] [place], [place] 4445209-29-2022 18:25-0400 SaO2% (BldA) [Mass fraction]99 %DO Campbell Ball Work Phone: [phone]09-29-2022 18:25-0400 Systolic blood mm[Hg]DO Campbell Saavedra Work Phone: [phone]09-29-2022 16:57-0400 Body nhbsri724.5 cmDO Campbell Saavedar Work Phone: [phone]09-29-2022 16:57-0400 Body zkrmci02.5 kgDO Campbell Saavedra Work Phone: [phone]09-28-2022 10:50-0400 Body .25 kgNurse Emelia Work Phone: [facility]09-28-2022 10:50-0400Diastolic blood hyqmucpy26 mm[Hg]Nurse Emelia Work Phone: [facility]09-28-2022 10:50-0400Heart rate59 /min Nurse Emelia Work Phone: [facility]09-28-2022 10:50-0400Systolic blood nwzbdvfu109 mm[Hg]Nurse Emelia Work Phone: [facility]09-27-2022 14:27-0400Body djkmea82.25 kgU[employer] [place] Work Phone: [phone]09-27-2022 14:27-0400Diastolic blood lqfhebrs57 mm[Hg][employer] [place] Work Phone: [phone]09-27-2022 14:27-0400Heart rate70 /min [employer] [place] Work Phone: [phone]09-27-2022 14:27-0400Systolic blood zfcdueog895 mm[Hg][employer] [place] Work Phone: [phone]08-31-2022 11:23-0400Body retlfd24.16 kgLeonard Dugan MD Work Phone: [phone]08-31-2022 11:23-0400Diastolic blood ynnlkcbv26 mm[Hg]Leonard Dugan MD Work Phone: [phone]08-31-2022 11:23-0400Heart rate56 /min Leonard Dugan MD Work Phone: [facility]08-31-2022 11:23-0400Systolic blood laemwsua559 mm[Hg]Leonard Dugan MD Work Phone: [facility] Encounters Encounter DateEncounter TypeCare ProviderFacilityStart: 01-22-2025 End: 69-85-6888pomtpqcpadPlkmitol Ball DO Work Phone: [facility] ClinicStart: 01-22-2025 End: 81-84-9002Rdugrgd encounter procedureBenjamin Ball DO-[facility] Work Phone: Start: 12-19-2024 End: 94-60-9721htxlfvralyNojpuikm Ball DO Work Phone: [facility] Work Phone: Start: 12-19-2024 End: 66-61-2253Eivdwzf encounter procedureBenjamin Ball DO-[facility] Work Phone: Start: 11-20-2024 End: 45-16-7492Chlati flowsIzabela Torres DO Work Phone: [facility] EyeStart: 11-20-2024 End: 08-72-3567Gwejuj Osmany Torres DO Work Phone: [facility] EyeStart: 11-20-2024 End: 68-38-5818kdllrjvrkfPXGTGOIF D ZAHLERNot AvailableStart: 10-24-2024 End: 07-19-3779Blfutgs encounter procedureLeticia Milian BILLING CUSTOMER SERVICE REPRESENTATIVE.TELEGRAPH MESSENGER Work Phone: UrologyComment on above:Benign prostatic hyperplasia, unspecified whether lower urinary tract symptoms present (Primary Dx); Weak urinary stream; BalanitisStart: 10-24-2024 End: 19-40-9443atgkiqyfpeXFAFP D PIERSONFacility:[facility] Hospitaltart: 10-06-2024 End: 85-18-6670ofddtzbmblEdohsbmx Ball DO Work Phone: [facility] Work Phone: Start: 10-06-2024 End: 69-19-7957Upycevi encounter procedureBenjamin Ball DO-[place] Work Phone: Start: 70-66-8877Fea-patient / Non-visitBenjamin Ball DO-[facility] Work Phone: Start: 09-22-2024 End: 68-72-5501jchmmwkllzDdvkduue Ball DO Work Phone: [facility] Work Phone: Start: 09-22-2024 End: 45-43-9174Mdeuphir ReferredBenjamin Ball DO-LAB [facility] Start: 09-21-2024 End: 19-53-5384bedginripeHobyrfnz Ball DO Work Phone: [facility] Work Phone: Start: 09-21-2024 End: 91-92-5850Fobijmi encounter procedureBenjamin Ball DO-[place] Work Phone: Start: 08-14-2024 End: 31-93-0603vjwezpfmnuObhihrcazThe [facility] Hospital Work Phone: Start: 08-14-2024 End: 17-59-3592Soldhra encounter [facility]Nov[facility] Work Phone: Start: 07-05-2024 End: 87-97-2334hwppcfhwccPnfxksckwThe Christ Hospital Work Phone: Start: 07-05-2024 End: 32-82-2855Ainnitk encounter procedureNov[facility] Health [facility]ician [facility]-[place] Work Phone: Start: 05-22-2024 End: 79-60-1653qdvgzwmatfZpzhktyf Ball DO Work Phone: [facility] Work Phone: Start: 05-22-2024 End: 06-53-7084Wgfkois encounter procedureBenjamin Ball DO Work Phone: [facility] Physician [facility] Work Phone: Start: 49-05-0981Mnt-patient / Non-visitBenjamin Ball DO Work Phone: [facility] Work Phone: Start: 05-03-2024 End: 94-61-9237gtgbfmbhcwOPYLK Kin MILIANFacility:[facility] Hospitaltart: 04-24-2024 End: 13-25-1623Ivloka-up encounterTermoses Milian BILLING CUSTOMER SERVICE REPRESENTATIVE.TELEGRAPH MESSENGER Work Phone: UrologyStart: 04-24-2024 End: 76-30-1182llxcdjaanuDevkbllk Ball DO Work Phone: [facility] Work Phone: Start: 04-24-2024 End: 00-64-3524Dihbifm encounter procedureBenjamin Ball DO Work Phone: [facility] Phys[facility] GroupNov[facility] Cardiology Work Phone: Start: 40-19-8037Rsy-patient / Non-visitBenjamin Ball DO Work Phone: [facility]Swed[facility] Work Phone: Start: 04-21-2024 End: 49-90-4491bhppzsbhtoAHFLXVOC E BALLFacility:[facility]tart: 04-21-2024 End: 35-53-9103Imvxvrq encounter procedureLeticia Milian APRN.[facility] Work Phone: UrologyComment on above:Recurrent UTI (Primary Dx); Benign prostatic hyperplasia, unspecified whether lower urinary tract symptoms present; Weak urinary streamStart: 04-21-2024 End: 40-26-9990Qyacpi flowsheetSterling Torres DO Work Phone: [facility] NB OPHTStart: 04-21-2024 End: 09-79-1443Wweqrg flowsheetSterling Porterer DO Work Phone: [facility] NB OPHTStart: 04-21-2024 End: 00-35-1085qlstmicmtvPMWRPVEU D ZAHLERNot AvailableStart: 80-43-3064Cpq- patient / Non-visitBenjamin Ball DO Work Phone: [facility] Physician [facility] Work Phone: Start: 04-05-2024 End: 30-08-0495cyeyqhyonqMxxdgirq Ball DO Work Phone: [facility] Work Phone: Start: 04-05-2024 End: 82-23-3393Cfxhlax encounter procedureBenjamin Ball DO Work Phone: [facility] GroupMer[facility] Work Phone: Start: 04-03-2024 End: 19-39-9643CvdmxiRrwrc D Rukhsana BILLING CUSTOMER SERVICE REPRESENTATIVE.TELEGRAPH MESSENGER Work Phone: UrologyComment on above:Refill RequestStart: 03-22-2024 End: 46-07-2585Mwvvwm flowsheetMarysergeijay Kin Maryahler DO Work Phone: [facility] NB OPHTStart: 03-22-2024 End: 09-62-0623Pojvmr flowsheetJonathan Kin Maryahler DO Work Phone: [facility] NB OPHTStart: 03-22-2024 End: 10-80-8803pyieibtlavNLREXLBE D ZAHLERNot AvailableStart: 03-20-2024 End: 92-98-9683eudbzwwstpBhgmpbwa Ball DO Work Phone: [facility] Work Phone: Start: 03-20-2024 End: 14-28-6905Cocgdiv encounter procedureBenjamin Ball DO Work Phone: [facility] Work Phone: Start: 89-80-0887Ara-patient / Non-visitBenjamin Ball DO Work Phone: [facility] Work Phone: Start: 03-14-2024 End: 58-66-4029taasiboxttBbrspklw Ball DO Work Phone: [facility] Work Phone: Start: 03-14-2024 End: 74-75-5120Mfhriqp encounter procedureBenjamin Ball DO Work Phone: [facility] Phys[facility] GroupNov[facility] Cardiology Work Phone: Start: 50-91-6485Nle-patient / Non-visitBenjamin Ball DO Work Phone: [facility] Work Phone: start: 03-11-2024 End: 31-36-1010gxhlboodlyKxmfkip PayFacility:[facility] Start: 03-11-2024 End: 32-61-0075Sqocwwrx ReferredBenjamin Ball DO Work Phone: [facility] [place] [facility] HospStart: 18-66-5183Kdv-patient / Non-visitBenjamin Ball DO Work Phone: [facility] Work Phone: Start: 33-24-8248Exp-patient / Non-visitBenjamin Ball DO Work Phone: [facility] Phys[facility] Work Phone: Start: 02-11-2024 End: 47-63-2000nqjcpxzgdsJBGVZKLU E BALLFacility:[facility]tart: 02-08-2024 End: 17-53-4647vxmnrnkaktSFIDEWID E BALLFacility:[facility] Hospitaltart: 02-08-2024 End: 08-95-6849Bdtngwi encounter Cortes Milian APRN.TELEGRAPH MESSENGER Work Phone: UrologyComment on above:Recurrent UTI (Primary Dx); Benign prostatic hyperplasia, unspecified whether lower urinary tract symptoms present; Incomplete bladder emptyingStart: 02-01-2024 End: 58-02-7215wwnawztmkyNcoudcacwRegency Hospital [facility] Work Phone: Start: 02-01-2024 End: 62-40-0328Bfhwahs encounter procedureNovant Health Rehabilitation Hospital Physician [facility] Work Phone: Start: 41-49-6103Ggz-patient / Non-visitBenjamin Ball DO Work Phone: [facility] Physician [facility] Work Phone: Start: 28-84-2333Ohp-patient / Non-visitNovant Health Rehabilitation Hospital Physician [facility] Work Phone: Start: 53-71-3586Upy-patient / Non-visitNovant Health Rehabilitation Hospital Physician Group-[facility] Work Phone: Start: 12-28-2023 End: 42-25-2829sehrjpmavqFaiigxxmqRegency Hospital [facility] Work Phone: Start: 12-28-2023 End: 63-30-8768Msfjtcc encounter procedureNovant Health Rehabilitation Hospital Physician Group-[place] Work Phone: Start: 38-26-5239Etwynbo encounter procedureDiley Ridge Medical Centertart: 12-17-2023 End: 71-98-2917Agbaww Osmany Torres DO Work Phone: noms OPHTStart: 12-17-2023 End: 36-71-2831Rylvpq flowsheetSterling Torres DO Work Phone: noms OPHTStart: 12-17-2023 End: 62-55-2617Apdujambu Result EncounterSterling Torres DO Work Phone: [facility] External Department UnsolicitedStart: 12-17-2023 End: 30-35-7320uenmxbssyxCflejdim ZahlerFacility:FTMCStart: 12-17-2023 End: 49-06-6311Zhdgjam encounter procedureSterling Torres [facility] Start: 12-17-2023 End: 56-31-3098jzpmcawbruJDBAHCAM D ZAHLERNot AvailableStart: 12-15-2023 End: 08-90-8611igngnrlzbzUvfjavszfRegency Hospital [facility] Work Phone: Start: 12-15-2023 End: 83-93-7561Webqqiw encounter procedureNovant Health Rehabilitation Hospital Physician Group-[place] Work Phone: Start: 09-23-2023 End: 99-61-5758gyigsqtrtbUEBradford Regional Medical Center Work Phone: [facility] Work Phone: Start: 09-23-2023 End: 89-67-2234Entpgau encounter procedureDO Campbell Saavedra Work Phone: [facility]Mer[facility] Work Phone: Start: 10-09-5421Uor-patient / Non-visitDO Campbell Saavedra Work Phone: [facility] GroupMer[facility] Work Phone: Start: 08-04-2023 End: 30-99-5540Rubgqdh encounter procedureLeticia Milian APRN.[facility] Work Phone: UrologyComment on above:Benign prostatic hyperplasia, unspecified whether lower urinary tract symptoms present (Primary Dx); Recurrent UTI; NocturiaStart: 98-46-5515Anp-patient / Non-visitDO Campbell Saavedra Work Phone: [facility] Physician [facility] Work Phone: Start: 07-22-2023 End: 59-48-1312vxnhwqrycrTS Campbell Saavedra Work Phone: [facility] Work Phone: Start: 07-22-2023 End: 03-46-1605Ljbiwzbh ReferredDO Campbell Saavedra Work Phone: [facility]ospStart: 37-49-8221Ydb-patient / Non-visitDO Campbell Saavedra Work Phone: [facility] Physician [facility] Work Phone: Start: 07-12-2023 End: 54-15-8440ndgwpkcbmkSC Campbell Saavedra Work Phone: [facility] Work Phone: Start: 07-12-2023 End: 57-62-9161Gzvqgxxw ReferredDO Campbell Saavedra Work Phone: [facility] [place]ospStart: 07-09-2023 End: 46-46-3449gofgdhpsprJF Campbell Saavedra Work Phone: [facility] Work Phone: Start: 07-09-2023 End: 51-28-7899Tyrgwrj encounter procedureDO Campbell Saavedra Work Phone: [facility] Work Phone: Start: 65-54-3404Itw-patient / Non-visitDO Campbell Saavedra Work Phone: [facility] Work Phone: Start: 06-23-2023 End: 41-98-3043mcgecvdlrdYJ Campbell Saavedra Work Phone: [facility] Work Phone: Start: 06-23-2023 End: 21-78-5206Udivmja encounter procedureDO Campbell Saavedra Work Phone: [facility] Work Phone: Start: 89-15-2191Gfw-patient / Non-visitDO Campbell Saavedra Work Phone: [facility] Work Phone: Start: 05-21-2023 End: 53-64-6576Xjndpcb encounter procedureDO Campbell Saavedra Work Phone: [facility] Work Phone: Start: 05-15-2023 End: 84-71-7078Lxwuxfhih department patient visitDO Campbell Saavedra Work Phone: [facility]-Emergency Room Work Phone: Start: 41-36-2438Qym-patient / Non-visitDO Campbell Saavedra Work Phone: [facility] Work Phone: Start: 16-53-0523Ifc-patient / Non-visitDO Campbell Saavedra Work Phone: [facility] Work Phone: Start: 04-21-2023 End: 92-02-9787ihnxblsftaDfftdgct Ball Other [employer] Other Start: 28-66-2421Oodhqrlpyvfl care manage srvc 14 day dischargeBenjamin BallFPG [facility] ClinicStart: 04-19-2023 End: 72-14-1908huyjqpczljEtliivpo Ball Other [facility] [employer] Other Start: 81-03-7208Uujrgzoas encounterBenjamin BallFPG [facility] ClinicStart: 04-15-2023 End: 27-65-6478vvtigtzonvQoopdyue Ball Other [facility] [employer] Other Start: 70-01-3839Scgzscgwg encounterBenjamin BallFPG [facility] ClinicStart: 03-17-2023 End: 83-24-9028xwwlfvpbvaJnkgdpby Ball Other [facility] [employer] Other Start: 12-04-6967Clxpsknqdtvf care manage srvc 14 day dischargeBenjamin BallFPG [facility] ClinicStart: 03-04-2023 End: 30-35-4554afvhgpbzvqBwdvzutt Ball Other [employer] Other Start: 56-72-1247Rletvulmu encounterBenjamin BallFPG [facility] ClinicStart: 02-23-2023 End: 74-68-1531scypqwoyfeAhebtpvk Ball Other [employer] Other Start: 63-76-7843Zqlgqs outpatient visit 15 minutes Campbell BallFPG [facility] ClinicStart: 34-24-9593Rfkikrpsl encounterBenjachrystal Saavedra Medical ClinicStart: 02-19-2023 End: 02-97-3512lppxwwbufrTqlgrrii Ball Other [employer] Other Start: 74-71-2361Fcpzpl outpatient visit 15 minutes Campbell [facility] ClinicStart: 02-02-2023 End: 72-14-0834Stkncwz encounter procedureLeticia Milian APRN.TELEGRAPH MESSENGER Work Phone: UrologyComment on above:BPH with obstruction/lower urinary tract symptoms (Primary Dx); Recurrent UTI; Weak urinary streamStart: 01-13-2023 End: 43-59-4012Dhiiqpcyd department patient visitDO Campbell Saavedra Work Phone: [facility] Work Phone: Start: 12-21-2022 End: 16-38-3615dkgzplivzeEwipuize Ball Other [employer] Other Start: 83-99-2936Dqoyyhaod encounterBenmonika [facility]ra Medical ClinicStart: 09-22-2022 End: 28-31-4849qvbhfuafdwStpnpseu Ball Other [employer] Other Start: 42-87-2990Elsprr outpatient visit 15 minutes Campbell [facility] ClinicStart: 09-20-2022 End: 73-58-3779ftdqfqjaxuBmis Braun Other [facility] [employer] Other start: 27-14-4521Nfhhqepqi by computer Wen Baptiste [facility] NeurosurgeryStart: 09-17-2022 End: 71-92-4209hqcuymfpmeNzrycgtk Ball Other [employer] Other Start: 20-54-9163Muprqr outpatient visit 25 minutes Campbell BallFP[facility] ClinicStart: 09-15-2022 End: 01-79-3826nlivqcbmrbNxmx Baptiste Other [facility] [employer] Other start: 06-81-4293Lomftmcmo by computer danishCornell Octaviano [facility] NeurosurgeryStart: 06-25-2022 End: 44-71-0372vqfsgyygbcLY CAMPBELL BALLFacility:I2Wwxnq: 06-18-2022 End: 29-79-6191gfabjhitakLqkdhwha Ball Other [employer] Other Start: 00-03-0561Ojshri outpatient visit 25 minutes Campbell MandiG [facility] ClinicStart: 06-02-2022 End: 90-88-2395vtiyybkkbdCA CAMPBELL BALLFacility:E7Fljkf: 04-08-2022 End: 20-14-9714kjpbzsjsnbItuuywpf Ball Other [place] [employer] Other Start: 73-92-2111Peyisk outpatient visit 15 minutes Campbell MandiG [facility] ClinicStart: 03-24-2022 End: 96-53-2963zeqdbwgtjvJrbanfer Ball Other [employer] Other Start: 03-29-9503Syxxgbsyw encounterBenjamin BallFP[facility] ClinicStart: 31-19-2645Tdpqwd outpatient visit 25 minutesBenjamin BallFPG [facility] ClinicStart: 03-20-2022 End: 89-00-8485anfhfkokovAY CAMPBELL SAAVEDRACelina [employer] Other Start: 01-08-2022 End: 24-52-3295Hhnofps encounter Rishi Dugan MD Work Phone: UrologyComment on above:Chronic epididymitis (Primary Dx); Left hydrocele; Weak urinary stream; BPH without obstruction/lower urinary tract symptoms; EpididymitisStart: 61-33-7254QvqogtCcen Susan MD Work Phone: UrologyComment on above:Refill RequestStart: 12-26-2021 End: 32-39-9168jaalxbvbjpWC Campbell Saavedra Work Phone: [facility] Work Phone: Start: 12-26-2021 End: 24-13-0238Fegsdjsnfn RecurringDO Campbell Saavedra Work Phone: [facility]-Infusion Therapy - O/P Start: 12-25-2021 End: 03-56-6256stmccwvhvdHV CAMPBELL SAAVEDRAFacility:U0Yadze: 12-17-2021 End: 70-88-2935Plptfdtqo department patient visitDO Campbell Saavedra Work Phone: [facility]-Emergency RoomStart: 12-16-2021 End: 75-95-6232Qlpglnx encounter procedureLeonard Dugan MD Work Phone: UrologyComment on above:Retention of urine (Primary Dx); Flaccid bladderStart: 54-39-8796Iwgyqpjoc encounterTermoses Milian APRN.CNP Work Phone: UrologyComment on above:Patient UpdateStart: 12-11-2021 End: 16-45-2248Zgimhyoin department patient visitDO Campbell Saavedra Work Phone: [facility]-Emergency RoomStart: 93-28-8299Zvdwwzxoc encounterLeonard Dugan MD Work Phone: UrologyComment on above:Patient UpdateStart: 12-10-2021 End: 40-95-5243Djygeli evaluation of patient and reportNurse Urol [facility] Emelia Work Phone: UrologyComment on above:Urinary tract infection without hematuria, site unspecified (Primary Dx); Feeling of incomplete bladder emptying; Benign prostatic hyperplasia with urinary retentionStart: 12-09-2021 End: 17-19-1944Eweeksg evaluation of patient and reportUrodynamics [place] Work Phone: UrologyComment on above:Urinary frequency (Primary Dx); Urinary urgency; Urinary straining; Feeling of incomplete bladder emptyingStart: 87-78-3600Kbmjdirla encounterLeonard Dugan MD Work Phone: UrologyComment on above:Appointment (Reschedule catheter change)Start: 11-26-2021 End: 36-23-8402Xdzmghggk department patient visitBEMARIA L SAAVEDRAFacility:[facility] HospitalStart: 63-39-7085Aozycikqk encounterLeonard Dugan MD Work Phone: UrologyComment on above:Smith Cath Problem; Hematuria Start: 11-19-2021 End: 82-87-1505ozpfhmjijqGB ROBIN BAPTISTEFacility:J6Duvgo: 11-12-2021 End: 53-50-9078Hpjggkr encounter procedureLeonard Dugan MD Work Phone: UrologyComment on above:BPH with obstruction/lower urinary tract symptoms (Primary Dx); Benign prostatic hyperplasia with urinary retentionStart: 28-99-5478Zoayq abstractingLeonard Dugan MD Work Phone: UrologyStart: 11-07-2021 End: 06-76-7362Xxuaregfi department patient visitROBERT Raffy [place] JRFacility:[facility] HospitalStart: 10-23-2021 End: 22-71-6538wpaysgnofuYQLaurel SAAVEDRAFacility:K8Xardr: 10-21-2021 End: 37-31-8831pglzjeukegCOAshley SAAVEDRAFacility:P3Uaytw: 81-93-4690Egzfr health examinationBeabebechrystal Saavedra Other [employer] Other Start: 07-17-2021 End: 39-09-7898qqpiyaecgoNUAshley SAAVEDRAFacility:P7Tlazh: 01-09-2020 End: 79-99-2395Wxu-procedure evaluation checkCampbell Saavedra Other [employer] Other Procedures DateProcedureProcedure DetailPerforming ClinicianStart: 43-46-9976Eostolbzthuf ophthalmic imaging optic nerveSterling Torres DO Work Phone: Start: 11-20-2024 End: 34-84-7899Cfmqh medical xm&eval comprhnsv estab pt 1/>Intermediate stage [...] lower eyelids of both eyes, unspecified typeStart: 84-54-1801Gqjtm [employer] DO Work Phone: Start: 04-21-2024 End: 88-34-0957Vigih medical xm&eval intermediate estab ptRefractive error Sterling Torres DO Work Phone: comment on above:Refractive error (Primary Dx)Start: 28-32-7239Pomgiyobtoph ophthalmic imaging optic nerveSterling Torres DO Work Phone: Start: 59-40-2111Hjrehb field xm uni/bi w/interp extended examSterling Torres DO Work Phone: Start: 03-22-2024 End: 20-20-5947Qrvyu medical xm&eval intermediate estab ptOptic atrophySterling Torres DO Work Phone: comment on above:Optic atrophy (Primary Dx); Dry eyes; 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 of both eyes; 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 2 diabetes mellitus (CMS/HCC); Blepharitis of upper and lower eyelids of both eyes, unspecified typeStart: 03-47-5943Qdbit [employer] DO Work Phone: Start: 32-38-3461Fybdaojy identified in Urine by OtherInbox DO Work Phone: Start: 12-17-2023 End: 13-05-5359Fjrikdkkacgo ophthalmic imaging optic nerveSterling Torres DO Work Phone: Start: 02-45-4199PWFV PLATELET COUNTJozulma Torres DO Work Phone: Start: 12-17-2023 End: 46-00-6414Bujmj medical xm&eval comprhnsv estab pt 1/>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 2 diabetes mellitus (CMS/HCC)Sterling Torres DO Work Phone: comment on above: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 2 diabetes mellitus (CMS/HCC) (Primary Dx); 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 of both eyes; Optic atrophy; Dry eyes; Blepharitis of upper and lower eyelids of both eyes, unspecified typeStart: 07-62-0226AstsdqvhlhBG Campbell [employer] Work Phone: Start: 06-46-2394Nhnnr cultureDO Campbell [employer] Work Phone: Start: 13-35-7547Rwsrdq scan of lower limb veinsDO Campbell [employer] Work Phone: Start: 24-85-5267Akzkodoveo screeningBemaria l aSavedra Other Start: 15-39-1579Wqxbgfmnenvey prostatectomySterling Torres Start: 65-46-4093Cwkyopnmmkpdc prostatectomySterling Torres Start: 09-00-9301Ziyffbjxudbyaceln with dilation of urethral strictureSterling [employer] Start: 77-93-4842Ukvgtxxmr for malignant neoplasm of colonBenmonika Saavedra Other Start: 92-62-0619Rpdfpcryl for malignant neoplasm of prostateBemaria l Saavedra Other AppendectomyJozulma Torres Extraction of cataractJozulma Torres TonsillectomySterling Torres Urine Javid Saavedra Work Phone: Urine Javid Saavedra Work Phone: Urine Javid Saavedra Work Phone: Plan of Treatment DateCare ActivityDetailAuthorStart: 99-81-6610Sanjspnz ScreeningDiabetes ScreeningNewark Hospitaltart: 06-26-2025 End: 59-59-6636Flitupj encounter hetipmudp14/14/2026 1:30 PM EDT Office Visit Urology [address] [place] [address] Leticia Milian, BILLING CUSTOMER SERVICE REPRESENTATIVE.TELEGRAPH MESSENGER [address] [place], [place] [id number] Return in about 8 months (around 06/24/2025) for rto for evaluation of BPH w obs/luts, AUA, PVR.UrologyComment on above:Return in about 8 months (around 06/24/2025) for rto for evaluation of BPH w obs/luts, AUA, PVR.Start: 11-20-2024 End: 77-32-0088Rwkeuoy encounter procedureNOMS NB OPHTComment on above:Arrived Start: 10-81-8221Lajyvatdz vaccinationInfluenza Vaccine (#1)[facility] Start: 10-24-2024 End: 23-49-2572Yamftcy encounter fscwasils19/12/2025 3:00 PM EDT Office Visit Urology [address] [place] [address] Leticia Milian, BILLING CUSTOMER SERVICE REPRESENTATIVE.TELEGRAPH MESSENGER [address] [place], [place] [id number] 6 month follow upUrologyComment on above:6 month follow upStart: 09-22-2024 Bacteria identified in Urine by CultureUrine [facility] Day[facility]ontart: 82-52-8585Mjvfz [facility]: 05-10-2024 End: 25-77-1706Vmhqcre encounter siwdwzvld62/26/2025 9:00 AM EST Office Visit Urology [address] [place] [address] Leticia Milian, BILLING CUSTOMER SERVICE REPRESENTATIVE.TELEGRAPH MESSENGER [address] [place] [address] Return in about 3 months (around 05/10/2024) for rto for evaluation of BPH w obs/luts, AUA, PVR.UrologyComment on above:Return in about 3 months (around 05/10/2024) for rto for evaluation of BPH w obs/luts, AUA, PVR.Start: 04-21-2024 End: 76-21-1429Xdejaea encounter jkfdxnybr24/07/2025 8:15 AM EST Office Visit [facility] [address] [place] [phone] Sterling Torres, [address] [place] [address] ArrivedNOMS NB OPHTComment on above:ArrivedStart: 03-22-2024 End: 34-81-1154Mwcjuki encounter procedureNOMS NB OPHTComment on above:Arrived Start: 65-76-9572Mrvzkfc Directive DiscussionAdvance Directive Discussion [facility] 02-08[facility]2024 End: 86-24-1866Qpckopuy identified in Urine by CultureURINE CULTURE Microbiology Routine Recurrent UTI Expected: 02/08/2024, Expires: [facility] Comment on above:Expected: 02/08/2024, Expires: 05/09/2024Start: 02-08-2024 End: 61-67-3399Kpfvwsugdd complete panel - UrineURINALYSIS, WITH MICROSCOPIC Lab Routine Recurrent UTI Expected: 02/08/2024, Expires: 05/09/2024[facility] Work Phone: Comment on above:Expected: 02/08/2024, Expires: 05/09/2024Start: 02-08-2024 End: 93-91-0543Hirlqfd encounter jdgxweoqu64/26/2024 8:30 AM EST Office Visit Urology [address] [place] [address] Leticia Milian, JOAQUIN.TELEGRAPH MESSENGER [address] [place] [address] Return in about 6 months (around 02/04/2024) for rto for evalution of BPH w obs/luts, UTI AUA, PVR .UrologyComment on above:Return in about 6 months (around 02/04/2024) for rto for evalution of BPH w obs/luts, UTI AUA, PVR . Start: 07-71-3210Nrunpss referralHolzer [facility] Work Phone: Start: 12-17-2023 End: 56-05-5655Gvrmptx encounter gygmxiofy64/04/2024 9:30 AM EDT Office Visit [facility] [address] [place] [phone] Sterling Torres, [address] [place] [address] ArrivedNOMS NB OPHTComment on above:ArrivedStart: 41-53-3930Ykbkv-19 Vaccine ()Covid-19 Vaccine ()[facility]: 91-92-0716Uchaizaav vaccinationInfluenza Vaccine (#1)[facility] HealthcareStart: 00-47-6588Pkmfvzp Directive DiscussionAdvance Directive DiscussionNewark Hospitaltart: 63-00-3658Hggpzswcex Health Screening Behavioral Health ScreeningNewark Hospitaltart: 24-57-9600Xqxgl microalbumin profileDTaP,Tdap,Td Vaccine (3 - Tdap)[facility]: 96-36-6280Lepkt-19 Vaccine ( season)Covid-19 Vaccine ( season)[facility]: 76-74-6321Jgzbzbc Directive DiscussionAdvance Directive Discussion [facility]: 82-26-3131Cwafsvpmgo AssessmentDepression Assessment [facility]: 01-08-2022 End: 47-84-3126Nvtlewrk identified in Urine by CultureURINE CULTURE Microbiology Routine Left hydrocele Chronic epididymitis Weak urinary stream BPH without obstruction/lower urinary tract symptoms Epididymitis Expected: 01/08/2022 (Approximate), Expires: 03/10/2022[facility] Work Phone: Comment on above:Expected: 01/08/2022 (Approximate), Expires: 03/10/2022tart: 01-08-2022 End: 63-27-0149BBVFNQYRYF, REFLEX MICROSCOPICURINALYSIS, REFLEX MICROSCOPIC Lab Routine Left hydrocele Chronic epididymitis Weak urinary stream BPH without obstruction/lower urinary tract symptoms Epididymitis Expected: 01/08/2022 (Approximate), [facility] Work Phone: Comment on above:Expected: 01/08/2022 (Approximate), Expires: 03/10/2022tart: 12-10-2021 End: 18-51-1020Qfegjagk identified in Urine by CultureURINE CULTURE Microbiology Routine Urinary tract infection without hematuria, site unspecified Expected: 12/10/2021, Expires: 02/09/2022[facility] Work Phone: Comment on above:Expected: 12/10/2021, Expires: 02/09/2022tart: 52-94-2756Nvkwasjki vaccinationINFLUENZA (#1)[facility] Start: 19-45-3062XPGVBNXBEYEKFMXJJVADMO Procedures Routine 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 Expected: 11/12/2021 (Approximate)[facility] Work Phone: Comment on above:Expected: 11/12/2021 (Approximate) Start: 45-77-3831SVVMD-19 VACCINE (5 - Booster for Pfizer series)COVID-19 VACCINE (5 - Booster for Pfizer series)[facility]: 09-99-0343SRLKEVL DIRECTIVE DISCUSSIONADVANCE DIRECTIVE DISCUSSIONNewark Hospitaltart: 58-23-1065OYOZJVKTWT ASSESSMENTDEPRESSION ASSESSMENTNewark Hospitaltart: comp foot exam completedDIABETIC FOOT EXAMNewark Hospitaltart: 61-89-3983Ccqjxcnfhzss Vaccine: 65+ Years (2 of 2 - PCV)Pneumococcal Vaccine: 65+ Years (2 of 2 - PCV)[facility] HealthcareStart: 01-01-2004Medicare Annual Wellness VisitMedicare Annual Wellness VisitNewark Hospitaltart: 07-28-1463Onweyfike B Vaccine (1 of 3 - Risk 3-dose series)Hepatitis B Vaccine (1 of 3 - Risk 3-dose series)[facility]: 19-09-1224YGI Vaccine (1 - 1-dose 60+ series)RSV Vaccine (1 - 1-dose 60+ series)[facility]: 39-55-2042MDKMBOAX VACCINE (1 of 2)SHINGRIX VACCINE (1 of 2)[facility]: 39-35-1335Ywnvw microalbumin profileDTAP,TDAP,TD (1 - Tdap)[facility]: 1958 Anxiety ScreeningAnxiety ScreeningNewark Hospitaltart: 91-00-0099Nfyaoeiyqw ScreeningDepression ScreeningNewark Hospitaltart: 08-04-6796Tykdsuniw B surface antibody levelLDL CHOLESTEROLNewark Hospitaltart: 26-76-4723Ckgvxwzij B screeningURINE ALBUMIN:CREATININE RATIONewark Hospitaltart: 1950 Hepatitis C antibody, confirmatory testDILATED RETINAL EXAMSamaritan Hospital Start: 29-78-3891CFQADRECVXLS: 65+ (1 - PCV)PNEUMOCOCCAL: 65+ (1 - PCV)[facility]: 27-47-9476Vdhcqsjlmz A1c/Hemoglobin.total in EuhibEXQ7LOxadhpjwd ClinicBacteria identified in Urine by CultureMer[facility] Health St[facility] End: 62-24-6126Nimiqhwv identified in Urine by CultureURINE CULTURE Microbiology Routine Recurrent UTI 5 Occurrences starting 02/02/2023 until 02/02/2024 [facility] Work Phone: Comment on above:5 Occurrences starting 02/02/2023 until 02/02/2024 End: 61-58-3010Kxdmsbuw identified in Urine by CultureBACTERIAL CULTURE, URINE Microbiology Routine Recurrent UTI 5 Occurrences starting 04/21/2024 until 04/21/2025[facility] ClinicComment on above:5 Occurrences starting 04/21/2024 until 6Bacteria identified in Urine by CultureBACTERIAL CULTURE, URINE Microbiology Routine Recurrent UTI 04/21/2024 4:36 PM [facility] metabolic 2000 panel - Serum or PlasmaMercy Health St. Rita'S Medical CenterComprehensive metabolic 2000 panel - Serum or [facility] HospitalHolter monitor [facility] HospitalPatient [facility] Work Phone: Patient [facility] Work Phone: Thyroperoxidase Ab [Units/volume] in Serum or Plasma [facility] End: 51-67-6312Wvxopnldou complete panel - UrineURINALYSIS, WITH MICROSCOPIC Lab Routine Recurrent UTI 5 Occurrences starting 02/02/2023 until 01/14/2024 [facility] Work Phone: Comment on above:5 Occurrences starting 02/02/2023 until 01/14/2024 End: 23-36-0923Dzymyadqka complete panel - UrineURINALYSIS, WITH MICROSCOPIC Lab Routine Recurrent UTI 5 Occurrences starting 04/21/2024 until 04/15/2025 [facility] Work Phone: Comment on above:5 Occurrences starting 04/21/2024 until 04/15/2025Urinalysis complete panel - UrineURINALYSIS, WITH MICROSCOPIC Lab Routine Recurrent UTI 04/21/2024 4:36 PM [facility] HospitalUrine culture [facility] CenterUS Heart TransthoracicSt. [facility] Immunizations Immunization DateImmunizationNotesCare BijsefegEyddwdnr51-32-2893gchampxpj, high dose seasonal, preservative-freeBenjamin Ball DO Work Phone: [facility]10-02-2024influenza, high dose seasonal, preservative-freeMercy Health St. Rita'S Medical Center10-02-2024 influenza virus vaccine, unspecified formulationLeticia Milian APRN.TELEGRAPH MESSENGER Work Phone: [facility] HospitalSvjczw41-46-7961NHM, preF3, adj, pfBenjamin Ball DO Work Phone: [facility]09-19-2023influenza virus vaccine, unspecified formulationDO Campbell Saavedra Work Phone: [facility]09-19-2023influenza, high dose seasonal, preservative-freeCampbell Saavedra Other [employer] Other [id number] vaccine, quadrivalent, adjuvanted Campbell Saavedra DO Work Phone: [facility]10-07-2022influenza virus vaccine, split virus (incl. purified surface antigen)Campbell Saavedra Other [employer] Other [id number] virus vaccine, unspecified formulationDO Campbell Saavedra Work Phone: [facility]10-06-2022COVID-19 mRNA Bivalent Booster (Pfizer)Campbell Saavedra DO Work Phone: [facility]04-04-2022COVID-19 Comirnaty (Pfizer) Tri-Sucrose 12+Campbell Saavedra DO Work Phone: [facility]09-28-2021influenza virus vaccine, split virus (incl. purified surface antigen)Campbell Saavedra Other [employer] Other [phone] virus vaccine, unspecified formulationDO Campbell Saavedra Work Phone: [facility]09-27-2021COVID-19 mRNA, Comirnaty (Pfizer)Campbell Saavedra DO Work Phone: [facility]09-27-2021Fluzone QIV High-Dose 65YR+Campbell Saavedra DO Work Phone: [facility]02-19-2021COVID-19 mRNA, Comirnaty (Pfizer)Campbell Saavedra DO Work Phone: [facility]01-25-2021COVID-19 mRNA, Comirnaty (Pfizer)Campbell Saavedra DO Work Phone: [facility]10-27-2020influenza virus vaccine, split virus (incl. purified surface antigen)Campbell Saavedra Other [employer] Other [id number] virus vaccine, unspecified formulationDO Campbell Saavedra Work Phone: [facility]10-27-2020Seasonal trivalent influenza vaccine, adjuvanted, preservative freeBenjamin Ball DO Work Phone: [facility]11-11-2019influenza virus vaccine, live, attenuated, for intranasal useSterling Porterbrandon [facility] Xwjlsvla14-35-9103jxgpah vaccine recombinantBenjamin Ball DO Work Phone: [facility]08-23-2019zoster vaccine recombinantBenjamin Ball DO Work Phone: [facility]11-02-2018influenza virus vaccine, split virus (incl. purified surface antigen)Campbell Saavedra Other [employer] Other [id number] virus vaccine, unspecified formulationDO Campbell Saavedra Work Phone: [facility]11-02-2018Seasonal trivalent influenza vaccine, adjuvanted, preservative freeBenjamin Ball DO Work Phone: [facility]09-24-2018influenza, injectable, quadrivalent, preservative freeBenjamin Quentin DO Work Phone: [facility]10-18-2017influenza virus vaccine, split virus (incl. purified surface antigen)Campbell Saavedra Other [employer] Other 125572-43-1039rreldsfad virus vaccine, unspecified formulationDO Campbell Saavedra Work Phone: [facility]01-02-2017influenza virus vaccine, split virus (incl. purified surface antigen)Campbell Saavedra Other [facility] [employer] Other [id number] virus vaccine, unspecified formulationDO Campbell Saavedra Work Phone: [facility]02-17-2016 pneumococcal conjugate vaccine, 13 valentBenjachrystal Saavedra Other [facility]02-17-2016 pneumococcal Conjugate, unspecified formulation; Translations: [Need for prophylactic vaccination against Streptococcus pneumoniae (pneumococcus)] Campbell Saavedra Other [facility] [employer] Other 10991017-18-2726cxxqiru and diphtheria toxoids, adsorbed, preservative free, for adult use (5 Lf of tetanus toxoid and 2 Lf of diphtheria toxoid)Campbell Saavedra Other [facility]11-15-2012diphtheria, tetanus toxoids and acellular pertussis vaccine, unspecified formulationBenmonika Saavedra Other [facility]11-07-2012 pneumococcal polysaccharide vaccine, 23 valentBenjamin Quentin Other [facility]03-05-2012 pneumococcal polysaccharide vaccine, 23 valentBenjamin Ball Other [facility] Payers DatePayer CategoryPayerPolicy [id number] [place] MEDICARE SUPPLEMENT [id number] 2016-Present [phone] [address] [place] [address] [id number] [id number] 1960Medicare [id number] [id number] [id number] 2.16.840.1.797916.3.57[id number] 2.840.1.009641.3.57[id number] 2.16840.1.092975.3.57[id number] 2.16840.1.112878.3.57[id number] 2.16840.1.561555.3.57[id number] 2.16840.1.757049.3.57[id number] 2.16840.1.878858.3.57[id number] 2.16840.1.852893.3.57[id number] 2.16840.1.138505.3.57[id number] 2.16840.1.475049.3.57[id number] 2.0.1.052242.3.57[id number] 2..840.1.032039.3.57[id number] 2.16.840.1.646046.3.579.2.1259[facility] HospitalcareMedikettering health [facility] [id number] 2st255n2-9cr9-2vc5-ja19-l5ajw2835y9iGnzdoslYxxomsgg [employer] [id number] 202i654u-[id number]-[id number] 2.16.840.1.2[id number] 2.0.1.103864.3.579.2.531 [id number] 2.0.1.570923.3.579.2.531 Social History DateTypeDetailFacilityStart: 10-24-2009 End: 76-17-0024Aqurirj smoking status NHISEx-smokerNewark Hospitaltart: 03-15-1959 End: 90-22-7492Kprygns of tobacco useCurrent smokerNewark Hospitaltart: 03-15-1959 End: 48-63-1642Axlqrhz of tobacco useCigarette SmokerNewark Hospitaltart: 10-24-2009 End: 35-59-6950Llmotwmnhq smoked current (pack per day) - Reported1.5[facility]Start: 11-07-2021 End: 12-62-6667Vfzrzdd intakeCurrent drinker of alcohol (finding)[facility]: 25-56-9443Fyh Assigned At BirthNot on fileBig Clifty ClinicStart: 10-28-2021 End: 45-33-2481Ggbslijd to SARS-CoV-2 (event)Not sureNewark Hospitaltart: 12-11-2021 End: 40-73-7502Zipatgq smoking status NHISNever smoked tobacco (finding) [facility]art: 80-22-6386Abd [facility]igned [facility]: 12-16-2021 End: 97-83-3058Kriewwl use and exposureSmokeless tobacco non-userNewark Hospitaltart: 12-16-2021 End: 03-83-9415Tvl Assigned At [facility]start: 92-93-4838Vhqgyepo Score (1-100), lower number is lower ksfu13QyemzabzhSamaritan Hospital Start: 35-86-5641Ojfirmi Comment2-3 times a week.[facility] HealthcareStart: 98-14-1701Eiutox orientationHeterosexual (finding)[facility]Start: 02-01-2024 End: 57-29-9607YtdWtob (finding)[facility] Medical Equipment Procedure CodeEquipment CodeEquipment Original TextEquipment IdentifierDates [id number], [id number]: 10-23-2021 End: 21-31-5648Chudzro on above:TEST HOME BLOOD SUGAR ONCE A DAYUSE TO TEST HOME BLOOD SUGAR ONCE A DAY Clinical Notes 11-10-2021 to 12-19-2024 Note Date & OrmuUikqKbbjjwgc70-19-9758 Evaluation note* Diagnosis Onset Date Resolution Status Admit Date Anemia acuteOct2024 1:05pmAortic stenosis, mildacuteOct2024 1:05pm Atrial flutteracuteOctober 2024 1:05pmBradycardiaacuteOctober 2024 1:05pmChronic kidney diseaseacuteOctober 2024 1:05pmHTN (hypertension)acute December 19, 2024 1:05pmType 2 diabetes mellitus with hyperglycemiaacuteOctober 2024 1:05pmAnemiaacuteNovember 2024 8:29amAortic stenosis, mildacute January 22, 2025 8:29amAtrial flutteracuteNovember 2024 8:29am BradycardiaacuteNov2024 8:29amChronic kidney diseaseacuteNov2024 8:29amChronic venous insufficiency of lower extremityacuteNov2024 8:29amElevated cholesterolacuteNov, 2025 8:29amHTN (hypertension)acuteJanuary 22, 2025 8:29amMedicare annual wellness visit, subsequentacuteJanuary 22, 2025 8:29amOverweightacuteJanuary 22, 2025 8:29amSubclinical hypothyroidismacuteJanuary 22, 2025 8:29amType 2 diabetes mellitus with diabetic polyneuropathyacuteJanuary 22, 2025 8:29amType 2 diabetes mellitus with hyperglycemiaacuteJanuary 22, 2025 8:29am [facility] Work Phone: 1(756) 304-958309-08-2025 History of Present illness Narrative* Sterling Torres [...] lid scrubs were recommended. documented in this encounterHCA Midwest DivisionWxrhirvqfv95-31-3332 NoteHNO ID: [id number] Author: LETICIA MILIAN APRN.TELEGRAPH MESSENGER Service: ? Author Type: Nurse Practitioner Type: Progress Notes Filed: 10/24/2024 15:38 Note Text: [facility] [place] [facility] [address] HISTORY OF PRESENT ILLNESS: Seen 04/21/24 for [...] with burning note at head of foreskin QBI=182 ML Location: BPH w obs/luts, UTI Pain Character: none Severity Scale: see AUA score, see lab Duration: BPH w obs/luts, UTI [facility] SYMPTOMS SCORE. 1. INCOMPLETE EMPTYING [...] will stop clotrimazole cre (more content not included)...[facility] 10-24-2024 History of Present illness Narrative* Leticia Milian, BILLING CUSTOMER SERVICE REPRESENTATIVE.[facility] - 10/24/2024 3:01 PM EDT Norberto M[place] [address] [id number] HISTORY OF PRESENT ILLNESS: Seen 04/21/24 for [...] with burning note at head of foreskin NOE=213 ML Location: BPH w obs/luts, UTI Pain Character: none Severity Scale: see AUA score, see lab Duration: BPH w obs/luts, UTI [facility] SYMPTOMS SCORE. 1. INCOMPLETE EMPTYING [...] Making Level: 3 - Low Leticia Milian APRN.TELEGRAPH MESSENGER documented in this encounterSamaritan Hospital07-10-2025 Evaluation note* Diagnosis Onset Date Resolution [...] 2 diabetes mellitus with hyperglycemiaacuteJuly 2024 8:23am [facility] Work Phone: 1(249) 615-195206-02-2025 Evaluation note* Diagnosis Onset Date Resolution Status [...] 2 diabetes mellitus with hyperglycemiaacuteJuly 2024 8:23am [facility] Work Phone: 1(837) 218-535804-23-2025 Evaluation note* Diagnosis Onset Date Resolution Status [...] 2 diabetes mellitus with hyperglycemiaacuteJuly 2024 9:11am [facility] Work Phone: 1(936) 680-221203-10-2025 Evaluation note* Diagnosis Onset Date Resolution Status [...] 10:12amHTN (hypertension)acuteJune 2024 10:12amSubclinical hypothyroidismacuteJune 2024 10:12am [facility] Work Phone: 1(374) 250-311002-10-2025 Evaluation note* Diagnosis Onset Date Resolution Status [...] 2 diabetes mellitus with hyperglycemiaacuteApril 2024 9:28am [facility] Work Phone: 1(460) 717-781502-07-2025 NoteHNO ID: [id number] Author: LETICIA MILIAN APRN.TELEGRAPH MESSENGER Service: ? Author Type: Nurse Practitioner Type: Progress Notes Filed: 04/21/2024 16:58 Note Text: Norberto Washington [address] [facility] [address] HISTORY OF PRESENT ILLNESS: Seen 02/08/24 for BPH w obs/luts, UTI, incomplete emptying Denies gross hematuria Denies burning with urination Pt stated that is having issue with constipation last BM a couple days ago ROSAMARIA 11/10/21 - 10 gm, rubbery, no nodules AUA=13 QOL 2 QVV=672 ML cysto 11-12-21 = 2.5 cm NON [...] see lab Duration: BPH w obs/luts, UTI [facility] SYMPTOMS SCORE. 1. INCOMPLETE EMPTYING [...] -DM -UTI TURP ar (more content not included)...[facility]02-07-2025 History of Present illness Narrative* Leticia Milian, JOAQUIN.TELEGRAPH MESSENGER - 04/21/2024 4:18 PM EST Norberto Mccoy Washington [address] [facility] [address] HISTORY OF PRESENT ILLNESS: Seen 02/08/24 for BPH w obs/luts, UTI, incomplete emptying Denies gross hematuria Denies burning with urination Pt stated that is having issue with constipation last BM a couple days ago ROSAMARIA 11/10/21 - 10 gm, rubbery, no nodules AUA=13 QOL 2 XET=720 ML cysto 11-12-21 = 2.5 cm NON [...] see lab Duration: BPH w obs/luts, UTI [facility] SYMPTOMS SCORE. 1. INCOMPLETE EMPTYING [...] on flomax -ILOR -DM -UTI TURP around 2019 outside Urology [...] Making Level: 4 - Moderate Leticia Milian APRN.TELEGRAPH MESSENGER documented in this encounterSam[facility] Hospital02-07-2025 History of Present illness Narrative* Sterling [...] in left eye (OS). documented in this encounterHCA Midwest [id number] Telephone encounter Note* Telephone Encounter - Jeannette Cervantes MA - 04/03/2024 9:10 AM EST Patient phones requesting refills as follows: Requested Prescriptions Pending Prescriptions Disp Refills tamsulosin (FLOMAX) 0.4 mg [Pharmacy Med Name: TAMSULOSIN HCL CAPS 0.4MG] 90 capsule 3 Sig: TAKE 1 CAPSULE ONCE DAILY Please review and advise. Jeannette Cervantes MA Last ov: 02/08/24 Next appt: 05/10/24 [facility]01-20[facility] Miscellaneous Notes* Telephone Encounter - Jeannette Cervantes MA - 04/03/2024 9:10 AM EST Patient phones requesting refills as follows: Requested Prescriptions Pending Prescriptions Disp Refills tamsulosin (FLOMAX) 0.4 mg [Pharmacy Med Name: TAMSULOSIN HCL CAPS 0.4MG] 90 capsule 3 Sig: TAKE 1 CAPSULE ONCE DAILY Please review and advise. Jeannette Cervantes MA Last ov: 02/08/24 Next appt: 05/10/24 documented in this encounterSamaritan Hospital01-08-2025 NoteRight Eye Reliability was poor. Progression has been stable. Foveal threshold was normal. Findings include normal observations. Left Eye Reliability was good. Progression has worsened. Foveal threshold was normal. Findings include superior altitudinal defect.[facility] [id number] History of Present illness Narrative* Sterling Torres [...] lid scrubs were recommended. documented in this encounterHCA Midwest [id number] Evaluation note* Diagnosis Onset Date Resolution Status [...] 12:54pmSubclinical hypothyroidismacuteFebruary 2024 12:54pmHTN (hypertension)acuteMarch 2024 9:46am [facility] Work Phone: 1(549) 903-189811-26-2024 Instructions* Patient Instructions* Leticia Milian APRN.CNP - 02/08/2024 9:06 AM EST Need to have regular bowel moment with miralax to get going then metamucil daily to regulate Increase water intake Make sure you taking flowmax daily Go to lab and give urine for testing documented in this encounterSamaritan Hospital11-26-2024 NoteHNO ID: [id number] Author: LETICIA MILIAN APRN.TELEGRAPH MESSENGER Service: ? Author Type: Nurse Practitioner Type: Progress Notes Filed: 02/08/2024 09:06 Note Text: Norberto Washington [address] [facility] [address] HISTORY OF PRESENT ILLNESS: Seen 08/04/23 for [...] constipation last BM a couple days ago ICE=389 ML Location: BPH w obs/luts, UTI Pain Character: none Severity Scale: see AUA score, see lab Duration: BPH w obs/luts, UTI [facility] SYMPTOMS SCORE. 1. INCOMPLETE EMPTYING [...] TURP around 2019 outs (more content not included)...[facility] 02-08-2024 History of Present illness Narrative* Leticia Milian, BILLING CUSTOMER SERVICE REPRESENTATIVE.TELEGRAPH MESSENGER - 02/08/2024 8:22 AM EST Norberto Washington [address] [place] [address] HISTORY OF PRESENT ILLNESS: Seen 08/04/23 for [...] constipation last BM a couple days ago FHZ=845 ML Location: BPH w obs/luts, UTI Pain Character: none Severity Scale: see AUA score, see lab Duration: BPH w obs/luts, UTI [facility] SYMPTOMS SCORE. 1. INCOMPLETE EMPTYING [...] Moderate Leticia Milian APRN.ENIO documented in this encounterSamaritan Hospital11-19-2024 Evaluation note* Diagnosis Onset Date Resolution Status Admit Date Aortic stenosis, mild acuteNov2023 1:24pmAtrial flutteracuteNovember 2023 1:24pm Chronic kidney diseaseacuteNov2023 1:24pmChronic venous insufficiency of lower extremityacuteNov4 1:24pmElevated cholesterolacuteNovember 2023 1:24pmHTN (hypertension)acuteNovember 2023 1:24pmType 2 diabetes mellitus with diabetic polyneuropathyacuteNovember 2023 1:24pmType 2 diabetes mellitus with hyperglycemiaacuteNovember 2023 1:24pmAortic stenosis, mildacuteDecember 2023 2:45pmAtrial flutter acuteDecember 2023 2:45pmHTN (hypertension)acuteDecember 2023 2:45pm Subclinical hypothyroidismacuteDecember 2023 2:45pmAortic stenosis, mild acuteJanuary 2024 8:25amAtrial flutteracuteJanuary 2024 8:25am Chronic kidney diseaseacuteJanuary 2024 8:25amChronic venous insufficiency of lower extremityacuteJanuary 2024 8:25amElevated cholesterolacute Gunjan 2024 8:25amHTN (hypertension)acuteJanuary 2024 8:25am Subclinical hypothyroidismacuteJanuary 2024 8:25amType 2 diabetes mellitus with diabetic polyneuropathyacuteJanuary 2024 8:25amType 2 diabetes mellitus with hyperglycemiaacuteJanuary 2024 8:25am [facility] Work Phone: 1(648) 324-460911-19-2024 Evaluation note* Diagnosis Onset Date Resolution Status Admit Date Aortic stenosis, mild acuteNovember 2023 1:24pmAtrial flutteracuteNovember 2023 1:24pm Chronic kidney diseaseacuteNovember 2023 1:24pmChronic venous insufficiency of lower extremityacuteJanember 2023 1:24pmElevated cholesterolacuteNovember 2023 1:24pmHTN (hypertension)acuteNovember 2023 [...] (hypertension)acuteFebruary 2024 12:54pmSubclinical hypothyroidism acuteFebruary 2024 12:54pm [facility] Work Phone: 1(838) 936-713910-15-2024 Evaluation note* Diagnosis Onset Date Resolution Status [...] 2 diabetes mellitus with hyperglycemiaacuteNovember 2023 1:24pm [facility] Work Phone: 1(246) 653-363210-15-2024 Evaluation note* Diagnosis Onset Date Resolution Status [...] 2023 1:24pmType 2 diabetes mellitus with diabetic polyneuropathyacuteNov2023 1:24pm Type 2 diabetes mellitus with hyperglycemiaacuteNovember 2023 1:24pmAortic stenosis, mildacuteDecember 2023 2:45pmAtrial flutteracuteDecember 2023 2:45pmHTN (hypertension)acuteDecember 2023 2:45pmSubclinical hypothyroidismacuteDecember 2023 2:45pm [facility] Work Phone: 1(297) 230-119310-04-2024 NoteRight Eye Quality was good. Scan locations included subfoveal. Progression has been stable. Findings include normal observations. Left Eye Quality was good. Scan locations included subfoveal. Progression has been stable. Findings include normal observations. Notes Good scan with normal appearanceHCA Midwest [id number] History of Present illness Narrative* Sterling Torres [...] lid scrubs were recommended. documented in this encounterHCA Midwest [id number] History of Present illness Narrative* Leticia Milian, BILLING CUSTOMER SERVICE REPRESENTATIVE.TELEGRAPH MESSENGER - 08/04/2023 8:58 AM EDT Norberto Mccoy Washington [address] [facility] [address] HISTORY OF PRESENT ILLNESS: Seen 02/02/23 for [...] see lab Duration: BPH w obs/luts, UTI [facility] SYMPTOMS SCORE. 1. INCOMPLETE EMPTYING [...] Moderate Leticia Milian APRN.ENIO documented in this encounterSamaritan Hospital02-07-2024 Evaluation note* Encounter Date Diagnosis Assessment [...] - recommend Picc line and IV antibiotics [facility] 01-03-2024 Evaluation note* Encounter Date Diagnosis [...] to restart Amlodipine. Continue PAUL for now. [facility] 12-12-2023 Evaluation note* Encounter Date Diagnosis [...] and inserts to prevent callus formation.Fall precautions. [facility] 12-08-2023 Evaluation note* Encounter Date Diagnosis [...] ulcers. Recommend routine foot care w/ Podiatry [facility] [id number] Miscellaneous Notes* Addendum Note - Leticia Milian APRN.CNP - 02/02/2023 2:16 PM ESTAddended by: LETICIA MILIAN on: 02/02/2023 02:16 PM Modules accepted: Orders documented in this encounterSamaritan Hospital11-21-2023 History of Present illness Narrative* Leticia Milian APRN.ENIO - 02/02/2023 1:40 PM EST Norberto Washington [address] [facility] [address] HISTORY OF PRESENT ILLNESS: Seen 07/28/22 for [...] see lab Duration: BPH w obs/luts, UTI [facility] SYMPTOMS SCORE. 1. INCOMPLETE EMPTYING [...] Moderate Leticia Milian APRN.ENIO documented in this encounterSamaritan Hospital07-11-2023 Evaluation note* Encounter Date Diagnosis Assessment [...] w/ acute infection Requires no additional treatment [facility] 07-06-2023 Evaluation note* Encounter Date Diagnosis [...] (ICD-10 - R09.89)US: < 50% B/L - 2Control BP Carotid US every 2-3 years Sep,Overweight (ICD-10 - E66.3)This patient has been instructed on a low-fat, high-fiber diet. They are instructed to reduce calories, portion sizes and snacks. It is recommended that they exercise for 30 minutes, 3-5 times weekly. [facility] 04-06-2023 Evaluation note* Encounter Date Diagnosis [...] w/ antibiotics and treatment of urinary retention [facility] 03-21-2023 NotePROCEDURE: XR FOOT LT MIN [...] Electronically authenticated by: SAMY TORRES Date: 2022-06-02 15:48[facility]03-21-2023 NotePROCEDURE: XR FOOT LT MIN 3 [...] Electronically authenticated by: SAMY TORRES Date: 2022-06-02 15:48[facility]01-25-2023 Evaluation note* Encounter Date Diagnosis Assessment [...] lesion was treated w/ cryotherapy w/o complications [facility] 01-06-2023 Evaluation note* Encounter Date Diagnosis [...] habits. Mar,Hesitancy of micturition (ICD-10 - R39.11) [facility] 10-27-2022 History of Present illness Narrative* Zuleika Hackett - 01/08/2022 8:20 AM EDT Norberto Washington [address] [facility] [address] Mr. Washington presents with chief complaints of: Enlarged L testicle. ED 11/07/21: PVR 179 cc, refused a catheter, scheduled to undergo a cystoscopy in [place] but was cancelled due to his urologist [...] epididymitis Hydroceles: None Spermatoceles: None Varicoceles: None [facility] SYMPTOMS SCORE. Date 01/08/2022 1. [...] and in the presence of Dr. Dugan. Zulieka Hackett, Scribe Provider Attestation: I, Leonard Dugan M.D., personally performed the services described in this documentation. All medicalrecord entries made by the scribe were at my direction and in my presence. I have reviewed the chart and discharge instructions (if applicable) and agree that the record reflects my personal performance and is accurate and complete. Leonard Dugan M.D. documented in this encounterSamaritan Hospital10-05-2022 Hospital Discharge instructions Additional Instructions Continue taking Flomax as prescribed Avoid drinking any fluids several hours before bed Call your urologist tomorrow for a follow-up appointment Return if you are unable to urinate, develop blood in your urine, abdominal pain, feversHolzer Hospital Work Phone: 1(473) 590-872410-04-2022 History of Present illness Narrative* Leonard Dugan MD - 12/16/2021 2:51 PM EDT Norberto Washington [address] [place] [address] HISTORY OF PRESENT ILLNESS: ED 11/07/21: PVR 179 cc, refused a catheter, scheduled to undergo a cystoscopy in [place] but was cancelled due to his urologist [...] Otherwise, intermittent catheterization. Agreed indwelling catheter 16 [place]. Flomax will not work, no prostate tissue [...] Moderate Leonard Dugan MD documented in this encounterSamaritan Hospital10-03-2022 Miscellaneous Notes* Telephone Encounter - Valente Bell LPN - 12/15/2021 3:58 PM EDT Called and spoke to patient regarding message below. Patient states understanding to information provided. No further action required at this time. * Telephone Encounter - Leticia Milian APRN.CNP - 12/15/2021 10:13 AM EDT Please call and confirm that pt received [employer] message to start new script sent for antibiotic. Elan Elizondo NP documented in this encounterSamaritan Hospital09-29-2022 Miscellaneous Notes* Telephone Encounter - Valente [...] be draining normally now. documented in this encounterSamaritan Hospital09-28-2022 Nurse Note* Stephanie Kaur RN - [...] hyperplasia with urinary retention documented in this encounterSamaritan Hospital09-27-2022 History of Present illness Narrative* Leonard Dugan MD - 12/09/2021 5:05 PM EDT [facility] PHYSICIAN INTERPRETATION: [...] contractility Leonard Dugan MD documented in this encounterSamaritan Hospital09-27-2022 Nurse Note* Stephanie Kaur RN - 12/09/2021 3:57 PM EDT [facility] URODYNAMICS LAB [...] of incomplete bladder emptying documented in this encounterSamaritan Hospital09-26-2022 Miscellaneous Notes* Telephone Encounter - Stephanie Kaur RN - 12/08/2021 4:11 PM EDT LM for patient to reschedule catheter change for tomorrow. Last changed 11/26/21 in ED. Will be due for change on 12/23/21. Stephanie Kaur R.N. documented in this encounterSamaritan Hospital09-12-2022 Miscellaneous Notes* Telephone Encounter - Sonia [...] fluids and decrease activity if having hematuria Loenard Dugan MD * Telephone Encounter - Amaya [...] but it has not, urine is between Globe tint & Brown and he does see small clots. Patient does have pain at the end of his Penis slight swelling noted (he has been applying Neosporin) Denies difficulty with urine draining into Smith bag, he does not have back pain Please advise documented in this encounterSamaritan Hospital08-31-2022 Nurse Note* Stephanie Kaur RN - [...] Education Session: None Instruction Provided To: Patient Soft Mud Molder Present: not applicable Discipline: Nursing Learning Topic: [...] supervision. Stephanie Kaur RN documented in this encounterSamaritan Hospital08-31-2022 Procedure note* Leonard Dugan MD - 11/12/2021 11:00 AM EDTProcedure(s): CYSTOSCOPY Pre-Procedure Diagnose(s): BPH with obstruction/lower urinary tract symptoms Post-Procedure Diagnose(s): BPH with obstruction/lower urinary tract symptoms PROCEDURE: CYSTOSCOPY INDICATIONS: ED 11/07/21: PVR 179 cc, refused a catheter, scheduled to undergo a cystoscopy in [place] but was cancelled due to his urologist [...] Otherwise, intermittent catheterization. Agreed indwelling catheter 16 [place]. By signing my name below, I, Zuleika [...] complete. Leonard Dugan M.D. documented in this encounterSamaritan Hospital08-29-2022 History of Present illness Narrative* Leonard Dugan MD - 11/10/2021 12:11 PM EDT Cysto with uroflow 11-12-21 ED 11/07/21: PVR 179 cc, refused a catheter, scheduled to undergo a cystoscopy in [place] but was cancelled due to his urologist was sick Pt underwent TURP x2 within a week AUA= 3-5 wach ROSAMARIA 11/10/21 - 10 gm, rubbery, no nodules US 11/07/21:= mildly complex renal cysts UA and culture 11-07-21= -ve May need UDS based on cysto documented in this encounterBucyrus [facility] Hospitalalub[facility] + Plan note No data available for this section [facility] Evaluation note* Diagnosis BPH with obstruction/lower urinary tract symptoms- Primary Hypertrophy of prostate with urinary obstruction and other lower urinary tract symptoms (LUTS) Benign prostatic hyperplasia with urinary retention documented in this encounter [facility] HospitalEvalubee[facility] note* Diagnosis Urinary frequency- Primary Urinary urgency Urgency of urination Urinary straining Straining on urination Feeling of incomplete bladder emptying Incomplete bladder emptying documented in this encounter [facility] HospitalEvalub[facility] note* Diagnosis Urinary tract infection without hematuria, site unspecified- Primary Feeling of incomplete bladder emptying Incomplete bladder emptying Benign prostatic hyperplasia with urinary retention documented in this encounter [facility] HospitalEvalubee[facility] noteNo assessment information availableHolzer Hospital Work Phone: Evaluation note* Diagnosis Retention of urine- Primary Retention of urine, unspecified Flaccid bladder Neurogenic bladder, NOS documented in this encounter [facility] HospitalEvaluation [facility]* Diagnosis Chronic epididymitis- Primary Left hydrocele Hydrocele, unspecified Weak urinary stream Slowing of urinary stream BPH without obstruction/lower urinary tract symptoms Hypertrophy of prostate without urinary obstruction and other lower urinary tract symptoms (LUTS) Epididymitis Orchitis and epididymitis, unspecified documented in this encounter [facility] HospitalEvaluation noteNo [email or web address] Other Evaluation note* Diagnosis BPH with obstruction/lower urinary tract symptoms- Primary Hypertrophy of prostate with urinary obstruction and other lower urinary tract symptoms (LUTS) Recurrent UTI Urinary tract infection, site not specified Weak urinary stream Slowing of urinary stream documented in this encounter [facility] HospitalEvaluation [facility]* Diagnosis Onset Date Resolution Status Chronic venous insufficiency of lower ex tremity acuteType 2 diabetes mellitus with hyperglycemiaacuteChronic kidney diseaseacute Chronic venous insufficiency of lower extremityacuteElevated cholesterolacuteHTN (hypertension)acuteType 2 diabetes mellitus with hyperglycemiaacute [facility] Work Phone: Evaluation note* Diagnosis Onset Date Resolution Status Chronic venous insufficiency of lower ex tremity acuteType 2 diabetes mellitus with hyperglycemiaacuteChronic kidney diseaseacute Chronic venous insufficiency of lower extremityacuteElevated cholesterolacuteHTN (hypertension)acuteOverweightacuteType 2 diabetes mellitus with hyperglycemia acute [facility] Work Phone: Evaluation note* Diagnosis Onset Date Resolution Status Chronic venous insufficiency of lower ex tremity acuteType 2 diabetes mellitus with hyperglycemiaacuteChronic kidney diseaseacute Chronic venous insufficiency of lower extremityacuteElevated cholesterolacuteHTN (hypertension)acuteOverweightacuteType 2 diabetes mellitus with hyperglycemia acuteChronic kidney diseaseacuteChronic venous insufficiency of lower extremity acuteElevated cholesterolacuteHTN (hypertension)acuteOsteomyelitis of right foot 2024acuteType 2 diabetes mellitus with hyperglycemiaacutePreop exam for internal medicinenoneactive [facility] Work Phone: Evaluation note* Diagnosis Benign prostatic hyperplasia, unspecified whether lower urinary tract symptoms present- Primary Recurrent UTI Urinary tract infection, site not specified Nocturia documented in this encounter [facility] HospitalEvalub[facility] note* Diagnosis Onset Date Resolution Status Chronic kidney disease acuteChronic venous insufficiency of lower extremityacuteElevated cholesterol acuteHTN (hypertension)acuteOsteomyelitis of right [id number] 2 diabetes mellitus with hyperglycemiaacutePreop exam for internal medicinenoneactive Chronic kidney diseaseacuteChronic venous insufficiency of lower extremityacute Elevated cholesterolacuteHTN (hypertension)acuteOverweightacuteType 2 diabetes mellitus with diabetic polyneuropathyacuteType 2 diabetes mellitus with hyperglycemiaacute [facility] Work Phone: Evaluation note* Diagnosis Onset Date Resolution Status Chronic kidney disease acuteChronic venous insufficiency of lower extremityacuteElevated cholesterol acuteHTN (hypertension)acuteOverweightacuteType 2 diabetes mellitus with diabetic polyneuropathyacuteType 2 diabetes mellitus with hyperglycemiaacute [facility] Work Phone: Evaluation note* Diagnosis 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 2 diabetes mellitus (CMS/HCC)- Primary 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 Dry eyes Unspecified tear film insufficiency Blepharitis of upper and lower eyelids of both eyes, unspecified type documented in this encounter [facility] HealthcareEvaluation note* Diagnosis Onset Date Resolution Status Chronic kidney disease acuteChronic venous insufficiency of lower extremityacuteElevated cholesterol acuteHTN (hypertension)acuteMedicare annual wellness visit, subsequentacute OverweightacuteType 2 diabetes mellitus with diabetic polyneuropathyacuteType 2 diabetes mellitus with hyperglycemiaacute [facility] Work Phone: Evaluation note* Diagnosis Recurrent UTI- Primary Urinary tract infection, site not specified Benign prostatic hyperplasia, unspecified whether lower urinary tract symptoms present Incomplete bladder emptying documented in this encounter [facility] HospitalEvaluation [facility]* Diagnosis Optic atrophy- Primary Unspecified optic atrophy Dry eyes Unspecified tear film insufficiency 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 (CMS/HCC) Blepharitis of upper and lower eyelids of both eyes, unspecified type documented in this encounter [facility] HealthcareEvaluation note* Diagnosis Refractive error- Primary Unspecified disorder of refraction and accommodation documented in this encounter [facility] HealthcareEvaluation note* Diagnosis Recurrent UTI- Primary Urinary tract infection, site not specified Benign prostatic hyperplasia, unspecified whether lower urinary tract symptoms present Weak urinary stream Slowing of urinary stream [facility] Diagnosis Benign prostatic hyperplasia, unspecified whether lower urinary tract symptoms present- Primary Weak urinary stream Slowing of urinary stream Balanitis Balanoposthitis documented in this encounter [facility] HospitalEval[facility] note* Diagnosis 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 of both eyes- Primary 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) Dry eyes Unspecified tear film insufficiency Blepharitis of upper and lower eyelids of both eyes, unspecified type documented in this encounter [facility] HealthcareHistory general Narrative - Reported* Type Description Date Medical History Chronic stasis dermatitis Medical HistoryArthritis, lumbar spineMedical HistoryCarotid bruitMedical HistoryChronic kidney disease due to diabetes mellitusMedical HistoryBenign localized hyperplasia of prostate with urinary retentionMedical History HypertensionMedical HistoryHyperlipidemia type IIMedical HistoryHigh risk medication useMedical HistoryArthritis of right shoulder regionSurgical History AppendectomySurgical HistoryLT [id number] HistoryTendon's Trimmed in Left [id number] HistoryLeft Small Toe [id number] HistoryLeft Broken [id number] HistoryTURP with tpiisusddm48.08.2020Hospitalization History see surgical history [facility] Discharge instructions No data available for this section [facility] Progress note No data available for this section [facility] Reason for referral (narrative)* Outpatient Procedure (Routine) - Pending ReviewSpecialtyDiagnoses / ProceduresReferred By Contact Referred To [facility] Diagnoses 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 Procedures URODYNAMICS MAGGY POST-VOIDING RESIDUAL URINE&/BLADDER CAP Leonard Dugan MD [address] [place] [address] [facility] [address] [place] [address] Referral IDStatusReasonStart DateExpiration DateVisits RequestedVisits [id number] Review Auto-Generated Referral 8/31/01714/31/[id number] [facility] for referral (narrative)No reason for referral information availableAcmc Healthcare System Work Phone: Medications Administered Section Medication OrderMAR ActionAction DateDoseRateSite cephALEXin 500 mg cap(s) (KEFLEX) 500 mg, ORAL, ONCE, 1 dose, On Wed11/12/21 at 0000, Prior to HOPS procedure, Please document the antimicrobial indication: Prophylaxis Given11/12/2021 11:22 AM CUB343 mg lidocaine urojet 2 % 11 mL [...] 2023 8 :09am Medicare annual wellness visit, [facility] December 28, 2023 8:09am Overweight December [...] 2023 8 :09am Medicare annual wellness visit, [facility] December 28, 2023 8:09am Overweight December [...] 1:24pm Type 2 diabetes mellitus with hyperglyce [facility] February 01, 2024 1:24pm Aortic stenosis, mild [...] 2024 9:2 8am Subclinical hypothyroidism July 05 025 9:28am Type 2 diabetes mellitus with [...] 2024 9:2 8am Subclinical hypothyroidism July 05 025 9:28am Type 2 diabetes mellitus with [...] 2024 9:2 8am Subclinical hypothyroidism July 05 025 9:28am Type 2 diabetes mellitus with [...] 06, 2024 8:23am Chief Complaint Admit Date BP concern December 19, 2024 1: 05pm [facility] January 22 8:29am Reason for [...] with hyperglyce francisco January 22, 2025 8:29am Reason for Referral Reason Refer for diabetic f oot ulcer and calluses Diagnosis 1 Foot abscess, right (L02.611) Diagnosis 2 Callus of foot (L84) Diagnosis 3 Hammer toe of right foot (M20.41) Referral Organization [facility] tram Referring Provider First Name Campbell Referring Provider Last Name Quentin Referring Provider Specialty Internal Me dicine Referred Organization [facility] Referred Provider Jhon Tejada Referred Address [address] [place], [place],[address] Referred Provider Specialty Podiatry - S urgical [...] or prosecute any alcohol or drug abuse patient.[facility] HospitalIn the event this information is protected by the Federal Confidentiality of Alcohol and Drug Abuse Patient Records regulations: The Federal rules restrict any use of the information to criminally investigate or prosecute any alcohol or drug abuse patient.[facility] HospitalIn the event this information is protected by the Federal Confidentiality of Alcohol and Drug Abuse Patient Records regulations: The Federal rules restrict any use of the information to criminally investigate or prosecute any alcohol or drug abuse patient.[facility] HospitalIn the event this information is protected by the Federal Confidentiality of Alcohol and Drug Abuse Patient Records regulations: The Federal rules restrict any use of the information to criminally investigate or prosecute any alcohol or drug abuse patient.[facility] HospitalIn the event this information is protected by the Federal Confidentiality of Alcohol and Drug Abuse Patient Records regulations: The Federal rules restrict any use of the information to criminally investigate or prosecute any alcohol or drug abuse patient.[facility] HospitalIn the event this information is protected by the Federal Confidentiality of Alcohol and Drug Abuse Patient Records regulations: The Federal rules restrict any use of the information to criminally investigate or prosecute any alcohol or drug abuse patient.[facility] HospitalIn the event this information is protected by the Federal Confidentiality of Alcohol and Drug Abuse Patient Records regulations: The Federal rules restrict any use of the information to criminally investigate or prosecute any alcohol or drug abuse patient.[facility] HospitalIn the event this information is protected by the Federal Confidentiality of Alcohol and Drug Abuse Patient Records regulations: The Federal rules restrict any use of the information to criminally investigate or prosecute any alcohol or drug abuse patient.[facility] HospitalIn the event this information is protected by the Federal Confidentiality of Alcohol and Drug Abuse Patient Records regulations: The Federal rules restrict any use of the information to criminally investigate or prosecute any alcohol or drug abuse patient.[facility] HospitalIn the event this information is protected by the Federal Confidentiality of Alcohol and Drug Abuse Patient Records regulations: The Federal rules restrict any use of the information to criminally investigate or prosecute any alcohol or drug abuse patient.[facility] HospitalIn the event this information is protected by the Federal Confidentiality of Alcohol and Drug Abuse Patient Records regulations: The Federal rules restrict any use of the information to criminally investigate or prosecute any alcohol or drug abuse patient.[facility] HospitalIn the event this information is protected by the Federal Confidentiality of Alcohol and Drug Abuse Patient Records regulations: The Federal rules restrict any use of the information to criminally investigate or prosecute any alcohol or drug abuse patient.[facility] HospitalIn the event this information is protected by the Federal Confidentiality of Alcohol and Drug Abuse Patient Records regulations: The Federal rules restrict any use of the information to criminally investigate or prosecute any alcohol or drug abuse patient.[facility] HospitalIn the event this information is protected by the Federal Confidentiality of Alcohol and Drug Abuse Patient Records regulations: The Federal rules restrict any use of the information to criminally investigate or prosecute any alcohol or drug abuse patient.[facility] HospitalIn the event this information is protected by the Federal Confidentiality of Alcohol and Drug Abuse Patient Records regulations: The Federal rules restrict any use of the information to criminally investigate or prosecute any alcohol or drug abuse patient.[facility] HospitalIn the event this information is protected by the Federal Confidentiality of Alcohol and Drug Abuse Patient Records regulations: The Federal rules restrict any use of the information to criminally investigate or prosecute any alcohol or drug abuse patient.[facility] HospitalIn the event this information is protected by the Federal Confidentiality of Alcohol and Drug Abuse Patient Records regulations: The Federal rules restrict any use of the information to criminally investigate or prosecute any alcohol or drug abuse patient.[facility] HospitalIn the event this information is protected by the Federal Confidentiality of Alcohol and Drug Abuse Patient Records regulations: The Federal rules restrict any use of the information to criminally investigate or prosecute any alcohol or drug abuse patient.[facility] Care Teams (unrecognized sec tion and content) Team Status: Active Member Role Status Dates Campbell Saavedra DO Primary Care Provider Active Team Status: Inactive Member Role Status Dates Campbell Saavedra DO Primary Care Provider Active Start: May 22, 2024 End: May 22, 2024GeFatimah Reederending ProviderActiveStart: May 22, 2024 End: May 22, 2024 Team Status: Inactive Member Role Status Dates Campbell Saavedra DO Primary Care Provide r, Attending Provider Active Start: July 05, 2024 End: July 05, 2024 Team Status: Inactive Member Role Status Dates Campbell Saavedra DO Primary Care Provider Active Start: August 14, 2024 End: August 14, 2024George Kimani Koromia , MDAttending ProviderActiveStart: August 14, 2024 End: August 14, 2024 Team Status: Active Member Role Status Dates Campbell Saavedra DO Primary Care Provider Active Start: January 30, 2024 Mey A Aldo , MDAttending ProviderActiveStart: January 30, 2024 Team [...] Active Start: February 11, 2024 Leticia Milian , JOAQUIN BCAttending ProviderActiveStart: February 11, 2024 Team Status: Active Member Role Status Dates Campbell Saavedra DO Primary Care Provider Active Start: March 11, 2024 Juan Sal , DOAttending ProviderActiveStart: March 11, 2024 Team Status: Inactive Member Role Status Dates Campbell Saavedra DO Primary Care Provider Active Start: March 11, 2024 End: March 11, 2024Juan Sal , DOAttending ProviderActiveStart: March 11, 2024 End: March 11, 2024 Team Status: Active Member Role Status Dates Campbell Saavedra DO Primary Care Provide r, Attending Provider Active Start: March 12, 2024 Team Status: Inactive Member Role Status Kayli Saavedra DO Primary Care Provider Active Start: March 14, 2024 End: March 14, 2024Keely Hernandez , MDAttending ProviderActive Start: March 14, 2024 End: [...] Active Start: May 15, 2023 End: May 14fuad Carter , Alton ProviderActiveStart: May 15, 2023 End: May 15, [...] Campbell Saavedra DO Primary Care Provider Active LowAlton Gonzáles ProviderActiveTeam MemberRelationshipSpecialtyStart DateEnd Date Ran [place] Jr. PCP - General10/10/09Team MemberRelationshipSpecialtyStart DateEnd Date Ran [place] Jr. PCP - General10/10/09Team MemberRelationshipSpecialtyStart DateEnd Date Ran [place] Jr. PCP - General10/10/09Team MemberRelationshipSpecialtyStart DateEnd Date Campbell Saavedra, DO [address] [place] [address] PCP - GeneralInternal Medicine11/26/21Team MemberRelationshipSpecialtyStart Date End Date Campbell Saavedra, DO [address] [place] [address] PCP - GeneralInternal Medicine11/26/21Team MemberRelationshipSpecialtyStart Date End Date Campbell Saavedra, DO [address] [facility] [place] [address] PCP - GeneralBannernal [facility]11/26/21Team MemberRelationshipSpecialtyStart Date End Date Campbell Saavedra, DO [address] [place] [address] PCP - GeneralBannernal [facility]11/26/21 Team Status: Inactive Member Role Status Dates Campbell Saavedra DO Primary Care Provider Active Kaley Lerner ProviderActiveTeam MemberRelationshipSpecialtyStart DateEnd Date Campbell Saavedra, DO [address] [place] [address] [facility]21 Team Status: Inactive Member Role Status Dates Campbell Saavedra DO Primary Care Provider Active Alton Damon ProviderActive Team Status: Inactive Member Role Status Dates Campbell Saavedra DO Primary Care Provider Active Sam Simons DOAttsmith ProviderActiveTeam MemberRelationshipSpecialty Start DateEnd Date Campbell Saavedra, DO [address] [place] [address] PCP - GeneralBannernal Medicine11/26/21Team MemberRelationshipSpecialtyStart Date End Date Campbell Saavedra, DO [address] [facility] PCP - [facility]11/26/21Team MemberRelationshipSpecialtyStart Date End Date Campbell Saavedra DO [address] [facility] [place] [address] PCP - [facility]11/26/21 Team Status: Active Member Role Status Dates [...] 12, 2023 End: July 11javid Tejada , TREVINM MSAttending ProviderActiveStart: July 12, 2023 End: July [...] DateEnd Date Campbell Saavedra DO [address] [place] [address] PCP - GeneralInternal Medicine11/26/21 Team Status: Active Member Role Status Dates Campbell Saavedra DO Primary Care Provider Active Start: July 26, 2023 Leticia Milian APRN BCAttending ProviderActiveStart: July 26, 2023 Team Status: Active Member Role Status Dates Campbell Saavedra DO Primary Care Provider Active Start: August 04, 2023 Hansa Fair ProviderActiveStart: August 04, 2023 Team MemberRelationshipSpecialtyStart DateEnd Date Campbell Saavedra MD [address] [place] [address] PCP - GeneralInternal Bxwjwvha94/4/24Team MemberRelationshipSpecialtyStart Date End Date Campbell Saavedra MD [address] [place] [id number] PCP - GeneralInternal Xwsovlch30/4/24Team MemberRelationshipSpecialtyStart Date End Date Campbell Saavedra MD [address] [place] [facility] [address] PCP - GeneralInternal Bqeqrsrq03/4/24 Team Status: Inactive Member Role Status Dates Campbell Saavedra DO Primary Care Provide r, Attending Provider Active Start: December 28, 2023 End: December 28, 2023 Team Status: Active Member Role Status Dates Campbell Saavedra DO Primary Care Provide r, Attending Provider Active Start: December 30, 2023 Team MemberRelationshipSpecialtyStart DateEnd Date Campbell Saavedra DO [address] [facility] [place] [address] PCP - GeneralInternal Medicine11/26/21Team MemberRelationshipSpecialtyStart Date End Date Campbell Saavedra MD [address] [place] [facility] [address] PCP - GeneralInternal Zimdlrrl82/4/24Team MemberRelationshipSpecialtyStart Date End Date Campbell Saavedra MD [address] [place] [facility] [address] PCP - GeneralInternal Agepioti43/4/24Team MemberRelationshipSpecialtyStart Date End Date Campbell Saavedra DO [address] [facility] [place] [address] PCP - GeneralInternal Medicine11/26/21Team MemberRelationshipSpecialtyStart Date End Date Campbell Saavedra MD [address] [place] [facility] [address] PCP - GeneralInternal Ykwzvcwy78/4/24Team MemberRelationshipSpecialtyStart Date End Date Campbell Saavedra MD [address] [place] [address] PCP - GeneralBannernal Tzfriuvi27/4/24Team MemberRelationshipSpecialtyStart Date End Date Campbell Saavedra DO [address] [place] [address] PCP - GeneralInternal Medicine11/26/21 Team Status: Active [...] Start: April 24, 2024 End: April 24, 2024Georannabel Hernandez MDAttending ProviderActive Start: April 24, 2024 End: April 24, 2024 Team Status: Active Member Role Status Dates Campbell Saavedra DO Primary Care Provider Active Start: May 03, 2024 Leticia Milian APRN BCAttending ProviderActiveStart: May 03, 2024 Team MemberRelationshipSpecialtyStart DateEnd Date Campbell Saavedra DO [address] [place] [address] PCP - GeneralBannernal Medicine11/26/21 Team Status: Inactive Member Role Status Dates Campbell Saavedra DO Primary Care Provider Active Start: July 05, 2024 End: July 05lisa Saavedra DOAttending ProviderActiveStart: July 05, 2024 End: July 05, 2024 Team Status: Inactive Member Role Status Dates Campbell Saavedra DO Primary Care Provider Active Start: September 21, 2024 End: September 21lisa Saavedra DOAttending ProviderActiveStart: September 21, 2024 End: September 21, 2024 Team Status: Inactive Member Role Status Dates Campbell Saavedra DO Primary Care Provider Active Start: September 22, 2024 End: September 22lisa Saavedra DOAttending ProviderActiveStart: September 22, 2024 End: September 22, 2024 Team Status: Active Member Role Status Dates Campbell Saavedra DO Primary Care Provider Active Start: September 22, 2024 Campbell Saavedra DOAttending ProviderActiveStart: September 22, 2024 Team Status: Inactive Member Role Status Dates Campbell Saavedra DO Primary Care Provider Active Start: October 06, 2024 End: October 06lisa Saavedra DOAttending ProviderActiveStart: October 06, 2024 End: October 06, 2024Team MemberRelationshipSpecialtyStart DateEnd Date Campbell Saavedra DO [address] [place] [address] PCP - GeneralInternal Medicine11/26/21Team MemberRelationshipSpecialtyStart Date End Date Campbell Saavedra DO [address] [place] [address] PCP - GeneralInternal Rnvraqhm94/4/24Team MemberRelationshipSpecialtyStart Date End Date Campbell Saavedra DO [address] [place] [address] PCP - GeneralInternal Vtgyxdox75/4/24 Team Status: Inactive Member Role Status Dates Campbell Saavedra DO Primary Care Provider Active Start: December 19, 2024 End: December 19lisa Saavedra DOAttending ProviderActiveStart: December 19, 2024 End: December 19, 2024 Team Status: Active Member Role/Relationship Status Dates Campbell Saavedra DO Primary Care Provider Active Team Status: Inactive Member Role/Relationship Status Dates Campbell Saavedra DO Primary Care Provider Active Start: December 19, 2024 End: December 19lisa Saavedra DOAttending ProviderActiveStart: December 19, 2024 End: December 19, 2024 Team Status: Inactive Member Role/Relationship Status Dates Campbell Saavedra DO Primary Care Provider Active Start: January 22, 2025 End: January 22lisa Saavedra DOAttending ProviderActiveStart: January 22, 2025 End: January 22, 2025 Reason for Visit (unrecogniz ed section and [...] section and content) DATE CREATED AUTHOR 12/13/2021 [facility] DATE CREATED AUTHOR AUTHOR'S ORGANIZ ATION 06/25/2022 [facility] DATE CREATED AUTHOR AUTHOR'S ORGANIZ ATION 12/19/2023 [facility] DATE CREATED AUTHOR AUTHOR'S ORGANIZ ATION 12/26/2023 [facility] DATE CREATED AUTHOR AUTHOR'S ORGANIZ ATION 10/26/2024 [facility] DATE CREATED AUTHOR AUTHOR'S ORGANIZ ATION 11/15/2024 [facility] DATE CREATED AUTHOR AUTHOR'S ORGANIZ ATION 11/21/2024 [facility] EPIC Goals (unrecognized section and [...] BE BASED ON THE PRIMARY CLINICAL RECORDS. [facility]. provides no warranty or guarantee of the accuracy or completeness of information in this document.
--- NOTE | 2025-01-25 13:51 | PM.WCHP ---
Wound Care H&P: HPI History of Present Illness Narrative: Mr. Vogt is a pleasant 84-year-old gentleman with history of type 2 diabetes and neuropathy who presents for routine nail care. He does have tingling and burning in his feet which he associates with neuropathy. He takes gabapentin for this problem. Today he complains that his long toenails are painful. [facility] Medical History (Updated 07/20/24 @ 14:08 by MOMO Ho) Chronic osteomyelitis of right foot ?M86.671 - Other chronic osteomyelitis, right ankle and foot (ICD-10) Non-pressure chronic ulcer of other part of left foot with unspecified severity ?L97.529 - Non-pressure chronic ulcer of other part of left foot with unspecified severity (ICD-10) Hypothyroidism ?E03.9 - Hypothyroidism, unspecified (ICD-10) Acute renal insufficiency ?N28.9 - Disorder of kidney and ureter, unspecified (ICD-10) Iron deficiency anemia ?D50.9 - Iron deficiency anemia, unspecified (ICD-10) Cellulitis of foot, right ?L03.115 - Cellulitis of right lower limb (ICD-10) Diabetic ulcer of right fifth toe ?E11.621 - Type 2 diabetes mellitus with foot ulcer (ICD-10) ?L97.519 - Non-pressure chronic ulcer of other part of right foot with unspecified severity (ICD-10) HLD (hyperlipidemia) ?E78.5 - Hyperlipidemia, unspecified (ICD-10) Diabetic infection of right foot ?E11.628 - Type 2 diabetes mellitus with other skin complications (ICD-10) ?L08.9 - Local infection of the skin and subcutaneous tissue, unspecified (ICD-10) Neuropathy ?G62.9 - Polyneuropathy, unspecified (ICD-10) Fracture, ankle ?S82.899A - Other fracture of unspecified lower leg, initial encounter for closed fracture (ICD-10) Benign prostate hyperplasia ?N40.0 - Benign prostatic hyperplasia without lower urinary tract symptoms (ICD-10) Hypertension ?I10 - Essential (primary) hypertension (ICD-10) Diabetes ?E11.9 - Type 2 diabetes mellitus without complications (ICD-10) Surgical History (Updated 07/06/23 @ 11:11 by Asha Erickson NP) History of colonoscopy ?Z98.890 - Other specified postprocedural states (ICD-10) H/O rotator cuff surgery ?Z98.890 - Other specified postprocedural states (ICD-10) History of toe surgery ?Z98.890 - Other specified postprocedural states (ICD-10) History of appendectomy ?Z90.49 - Acquired absence of other specified parts of digestive tract (ICD-10) Hx of tonsillectomy ?Z90.89 - Acquired absence of other organs (ICD-10) Family History (Updated 07/06/23 @ 11:11 by Asha Erickson NP) Mother Family history of cancer Father Family history of stroke Other Family history of aneurysm Social History (Updated 07/21/23 @ 13:32 by Ness Blunt RN) Within the past year, how often did you have a drink containing alcohol: never Score interpretation: A score less than 4 is consistent with normal alcohol consumption. 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[employer] Known occupational exposures/hazards: No Highest level of school completed/degree received: Bachelor's degree Are you now , , , , never or living with a partner: Little interest or pleasure in doing things: not at all Feeling down, depressed, or hopeless: not at all Feel stressed/tense/nervous/anxious/difficulty sleeping: not at all Do you think of yourself as: straight/heterosexual Gender Identity: male Meds Home Medications and Allergies Home Medications ?Medication ?Instructions ?Recorded ?Confirmed ?Type gabapentin 300 mg capsule 300 mg PO TID 03/08/23 07/22/23 History glipizide 2.5 mg tablet, extended 2.5 mg PO QAM 03/08/23 07/22/23 History release 24 hr lisinopril 20 mg tablet 20 mg PO .qhs 03/08/23 07/22/23 History lovastatin 40 mg tablet 40 mg PO .qhs 03/08/23 07/22/23 History tamsulosin 0.4 mg capsule 0.4 mg PO Q24H 03/08/23 07/22/23 History amlodipine 5 mg tablet 5 mg PO QNOON 07/06/23 07/22/23 History antiarthritic combination no.2 900 900 mg PO DAILY 07/06/23 07/22/23 History mg tablet (glucosamine-chondroitin) aspirin 81 mg tablet,delayed 81 mg PO DAILY 07/06/23 07/22/23 History release (Adult Aspirin Regimen) multivitamin (Daily Multi-Vitamin 1 tab PO DAILY 07/06/23 07/22/23 History tablet) turmeric 400 mg capsule 400 mg PO DAILY 07/06/23 07/22/23 History cephalexin 500 mg capsule 500 mg PO BID 14 days #28 caps 07/22/23 Rx hydrocodone 5 mg-acetaminophen 325 1 tab PO Q8H PRN pain 7 days #21 07/22/23 Rx mg tablet tabs apixaban 5 mg tablet (Eliquis) 5 mg PO BID 30 days #60 tabs 01/30/24 Rx metoprolol succinate 25 mg 25 mg PO DAILY #20 tabs 01/30/24 Rx tablet,extended release 24 hr (Toprol XL) nitrofurantoin 100 mg PO BID 7 days #14 caps 03/11/24 Rx monohydrate/macrocrystals 100 mg capsule (Macrobid) Allergies Allergy/AdvReac Type Severity Reaction Status Date / Time ciprofloxacin (From Cipro) Allergy Severe Rash Verified 01/30/24 16:58 Sulfa (Sulfonamide Allergy Severe Rash Verified 01/30/24 16:58 Antibiotics) Exam Narrative: Exam Narrative: Dermatologic: Skin is diffusely dry, thin, and shiny. No ulcerative or preulcerative lesions noted. Remaining toenails are thickened, mycotic, and elongated. Vascular: PT pulses are nonpalpable bilaterally, DP pulses are faintly palpable. Capillary refill is brisk. Digital hair is absent bilaterally. Ankle edema noted bilaterally. Neurologic: Protective sensation is absent, vibratory sensation absent, Achilles deep tendon reflexes absent bilaterally. Musculoskeletal: Partial amputation of left toes #2 and 4, partial amputation of right toe #4. No pain with palpation. Assessment and Plan Assessment and Plan (1) Tinea unguium: (2) Type 2 diabetes mellitus with diabetic neuropathy, unspecified: (3) Acquired absence of other left toe(s): (4) Acquired absence of other right toe(s): Plan Mr. Vogt is a pleasant 84-year-old gentleman with history of type 2 diabetes and neuropathy with previous nontraumatic toe amputations. Routine nail care performed. Follow-up in 3 months, sooner if any issues arise. Acute Procedures Podiatry Nail Debridement Class A Findings Class A findings: non-traumatic amputation of foot or integral skeletal portion thereof Class B Findings Absent posterior tibial pulse: bilateral Advanced trophic changes as evidenced by any three of the following: decreased hair growth, nail changes (thickening) and skin texture (thin or shiny) Class C Findings Claudication: No Temperature changes: Yes Edema: Yes Nail debridement paresthesia (abnormal spontaneous sensations in the feet): Yes Burning: Yes Qualifies If: Qualifiers If:: A patient qualifies for nail debridement if they have: 1 class A finding (Q7) 2 class B findings (Q8) OR 1 class B & 2 class C findings in addition to a primary condition (Q9) Nail Procedure Nail Procedure Time out: Yes Nail procedure: other (Toenail debridement bilateral feet, callus paring left foot) Number of affected nails: 7 Location (toes): left and right Procedure successful: Yes Patient tolerated procedure: well and no complications Additional comments: The toenails of the patient's remaining toes were trimmed with nail nippers without incident.
== END 2025-01-25 13:27 | disposition home or self-care (01) ==
LOC: WC 13:27
PROVIDERS: PCP Internal Medicine; Visit Provider Physician Assistant
DX: B35.1 Tinea unguium (principal); E11.40 Type 2 diabetes mellitus with diabetic neuropathy, unspecified; Z89.422 Acquired absence of other left toe(s); Z89.421 Acquired absence of other right toe(s)
CPT/HCPCS: 11721